=== PATIENT | female | born 1990 | race Caucasian/White ===

== ENCOUNTER 2016-04-14 17:17 | Emergency (ER) | payer OTHER ==
[2016-04-14 18:01] VITALS: BP 178/108; PULSE 18; RESP 20; TEMP 99.3
[2016-04-14] MEDS ORDERED: ONDANSETRON ODT 4 MG TAB PO STA (18:03)
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
== END 2016-04-14 20:09 | disposition left against medical advice (07) ==
LOC: EC 17:17
DX: R10.9 Unspecified abdominal pain (principal); Z79.899 Other long term (current) drug therapy; Z88.5 Allergy status to narcotic agent; Z88.2 Allergy status to sulfonamides; Z88.8 Allergy status to other drugs, medicaments and biological substances; Z91.040 Latex allergy status
CPT/HCPCS: 99283

== ENCOUNTER 2016-04-16 09:34 | Emergency (ER) | payer OTHER ==
[2016-04-16] MEDS ORDERED: SODIUM CHLORIDE 0.9% 1,000 ML IV STA (10:37)
[2016-04-16] MEDS ORDERED: HYDROmorphone 1 MG/ML 1 ML SYRINGE IVP STA (11:01)
[2016-04-16] MEDS ORDERED: ONDANSETRON 4 MG/2 ML VIAL IVP STA (11:01)
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
[2016-04-16 11:15] LABS: Appearance,Urine Cloudy (Clear); Bilirubin,Urine Negative (Negative); Glucose,Urine (UA) Negative (Negative); Ketones,Urine Trace (Negative); Leukocyte Esterase,Urine Large (Negative); Mucus,Urine Rare /hpf; Nitrite,Urine Negative (Negative); Particle Count 6386; Protein,Urine Trace (Negative); RBC,Urine 10 /hpf (0-5); Specific Gravity,Urine 1.016 (1.001-1.035); Squamous Epithelial Cell,Urine 10 /hpf (0-4); UA Billing (MACRO vs. MICRO) MICRO; Urobilinogen,Urine <2.0 mg/dL (<2.0); WBC,Urine 33 /hpf (0-5)
[2016-04-16 11:15] LABS: Basophils % (A) 1 %; CHCM 35.7; Eosinophils # (A) 0.1 k/uL (0-0.7); Eosinophils % (A) 3 %; HCT 40.4 % (34.0-46.0); HDW 2.94; Luc # (Auto) 0.16; Luc % (Auto) 3; Lymphocytes # (A) 2.4 k/uL (1.0-4.8); Lymphocytes % (A) 51 %; MCH 32.2 pg (25.0-35.0); MCHC 34.6 g/dL (31.0-37.0); Mean Platelet Volume 7.7; Monocytes # (A) 0.2 k/uL (0-1.0); Monocytes % (A) 5 %; Neutrophils # (A) 1.8 k/uL (1.3-7.7); Neutrophils % (A) 38 %; RBC 4.34 m/uL (3.80-5.40); RDW 13.2 % (11.5-15.5); WBC 4.7 k/uL (3.8-10.6); WBC (Perox) 4.89
[2016-04-16 11:24] LABS: ALT 43 U/L (9-52); AST 29 U/L (14-36); Alkaline Phosphatase 73 U/L (38-126); Amylase <30 U/L (30-110); Anion Gap 12 mmol/L; Blood Urea Nitrogen 9 mg/dL (7-17); Calcium 9.6 mg/dL (8.4-10.2); Carbon Dioxide 26 mmol/L (22-30); Chloride 105 mmol/L (98-107); Glucose 100 mg/dL (74-99); Non-African American GFR(MDRD) >60 (>60 ml/min/1.73 sqM); Sodium 143 mmol/L (137-145); Total Bilirubin 0.5 mg/dL (0.2-1.3); Total Protein 7.5 g/dL (6.3-8.2)
--- NOTE | 2016-04-16 12:00 | XR ---
EXAMINATION TYPE: XR KUB DATE OF EXAM: 04/16/2016 11:40 AM COMPARISON: NONE HISTORY: 25 year-old female right-sided abdominal pain and vomiting FINDINGS: Lung bases are clear. No evidence for free intraperitoneal air. No dilated small bowel or air-fluid levels. There is moderate stool in the right hemicolon. Ovoid density projecting over the right iliac bone probably represents a medication tablet to be yousuf elated clinically. No suspicious calcifications identified. Slight levoconvex curvature of the lumbar spine. IMPRESSION: 1. No evidence for free air or bowel obstruction. 2. Moderate stool in the right hemicolon. 3. Density probably representing a medication tablet projecting over the right iliac bone. Clinically correlate.
[2016-04-16 12:04] LABS: Manual Review Performed
[2016-04-16 12:08] LABS: RBC Morphology Normal
--- NOTE | 2016-04-16 12:12 | US ---
EXAMINATION TYPE: US abdomen limited DATE OF EXAM: 04/16/2016 11:53 AM COMPARISON: Ultrasound abdomen 13 September 2014 CLINICAL HISTO RY: RUQ pain, Vomiting. EXAM MEASUREMENTS: Liver Length: 13.4 cm Gallbladder Wall: 0.1 cm CBD: 0.4 cm Right Kidney: 10.9 x 5.2 x 4.5 cm RUQ ABDOMINAL ULTRASOUND ANATOMY: Pancreas: Not well seen because of overlying bowel gas Liver: difficult to evaluate due to large amounts of bowel gas. The liver shows an echogenic appeara nce and is poorly penetrated by the ultrasound beam, focal decreased echogenicity noted adjacent to t he gallbladder. Gallbladder: wnl Evidence for sonographic Velasquez's sign: yes CBD: wnl Right Kidney: wnl Ascites noted? No Impression: Positive sonographic Velasquez's sign. Probable fatty infiltration of the liver versus hepat ocellular disease, probable focal fatty sparing adjacent to the gallbladder. Limited exam.
[2016-04-16] MEDS ORDERED: RX INFO: IV CONTRAST WAS GIVEN 1 EACH MISC MISCELLANE PRN (12:16)
--- NOTE | 2016-04-16 13:08 | CT ---
EXAMINATION TYPE: CT abdomen pelvis w con DATE OF EXAM: 04/16/2016 12:55 PM COMPARISON: NONE HISTORY: 25-year-old female with RLQ pain TECHNIQUE: Contiguous axial scanning of the abdomen and pelvis following administration of 100 ml Omn ipaque 300 IV contrast. Delayed images through the kidneys and coronal/sagittal reconstructions perf ormed. CT DLP: 1973 mGycm Automated exposure control for dose reduction was used. FINDINGS: Heart is normal size without pericardial effusion. Lung bases clear without pleural effusion. There is a small hiatal hernia. Liver is mildly enlarged at 18.4 cm craniocaudal with diffuse low-attenuation. Some focal fatty spari ng is noted along the gallbladder fossa. No focal liver lesion otherwise seen. Gallbladder, adrenal glands, kidneys, spleen, pancreas within normal limits. No dilated small bowel, free fluid, or free air. No mesenteric or retroperitoneal lymphadenopathy. Normal appendix. Medication tablets within the cecum corresponding to the radiographic density. Addit ional medication tablet in the transverse colon and at the splenic flexure as well. A fourth medicati on tablet is seen in the mid small bowel. There is moderate stool burden without pericolonic inflammatory change. Bladder is partially distended. Uterus and both ovaries are visualized. Rectum appears normal. No abn ormal fluid collection in the pelvis or pelvic lymphadenopathy. Bones: No osseous destructive process. IMPRESSION: 1. HEPATOMEGALY AND HEPATIC STEATOSIS. CORRELATE WITH LFT's, LIPID PROFILE, AND PATIENT RISK FACTORS AND WHETHER THIS IS THE CAUSE OF THE PATIENT'S PAIN. 2. MODERATE STOOL BURDEN. NORMAL APPENDIX AND GALLBLADDER. 3. THERE ARE FOUR NONDISSOLVED MEDICATION TABLETS THROUGHOUT THE GI TRACT, 3 WITHIN THE COLON. 4. SMALL HIATAL HERNIA.
[2016-04-16 13:35] VITALS: BP 105/56; PULSE 83; RESP 18; TEMP 99.1
== END 2016-04-16 13:40 | disposition home or self-care (01) ==
LOC: EC 09:34
DX: K59.00 Constipation, unspecified (principal); K76.0 Fatty (change of) liver, not elsewhere classified; R11.2 Nausea with vomiting, unspecified; F32.9 Major depressive disorder, single episode, unspecified; F41.9 Anxiety disorder, unspecified; Z79.899 Other long term (current) drug therapy; Z91.040 Latex allergy status; Z88.2 Allergy status to sulfonamides; Z88.5 Allergy status to narcotic agent; Z88.8 Allergy status to other drugs, medicaments and biological substances
CPT/HCPCS: 99284; 96374; 96375; 96361; 36415; 80053; 82150; 83690; 85025; 81001; 81025; 87086; 74000; 76705; 74177; J2405; J1170; Q9967

== ENCOUNTER 2016-05-09 | Emergency (ER) | payer OTHER ==
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
== END 2016-05-09 09:06 | disposition home or self-care (01) ==
CPT/HCPCS: 99282

== ENCOUNTER → 2016-05-29 | Outpatient (CLI) | payer OTHER ==
--- NOTE | 2016-05-29 09:42 | NM ---
EXAMINATION TYPE: NM hepatobiliary w EF DATE OF EXAM: 05/29/2016 9:36 AM COMPARISON: CT 04/16/2016 HISTORY: Right upper quadrant pain TECHNIQUE: After the intravenous administration of 4.9 mCi Tc 99m Mebrofenin hepatobiliary scintigrap hy is performed. Immediate images post injection. FINDINGS: There is satisfactory initial accumulation of tracer by the liver. The gallbladder is visualized wit hin 10 minutes. The small bowel activity is noted within 60 minutes. At one hour 8 ounces of oral e nsure plus is given to mimic CCK and gallbladder ejection fraction is calculated at 71 %, in the norm al range. Therefore there is no scintigraphic evidence of cystic or common bile duct obstruction to suggest acute cholecystitis or gallbladder dyskinesia. IMPRESSION: 1. No abnormality identified
== END | disposition home or self-care (01) ==
LOC: RADNMMAIN 07:09
PROVIDERS: ATTEND Internal Medicine Gastroenterology
DX: R10.11 Right upper quadrant pain (principal)
CPT/HCPCS: 78226; A9537

== ENCOUNTER 2016-07-29 15:22 | Emergency (ER) | payer OTHER ==
[2016-07-29 16:12] VITALS: RESP 18
[2016-07-29] MEDS ORDERED: SODIUM CHLORIDE 0.9% 1,000 ML IV ONE (16:25)
[2016-07-29] MEDS ORDERED: ACETAMINOPHEN IV (For NPO) 1,000 MG in EMPTY BAG 1 BAG IVPB STA (16:26)
[2016-07-29] MEDS ORDERED: DIAZEPAM 5 MG/ML 2 ML SYRINGE IVP STA (16:26)
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
[2016-07-29] MEDS ORDERED: diphenhydrAMINE 50 MG/ML 1 ML VIAL IVP STA (18:18)
[2016-07-29 19:49] VITALS: BP 146/87; PULSE 86; TEMP 98.8
== END 2016-07-29 19:49 | disposition home or self-care (01) ==
LOC: EC 15:22
DX: R51 Headache (principal); F41.9 Anxiety disorder, unspecified; E66.9 Obesity, unspecified; J45.909 Unspecified asthma, uncomplicated; F32.9 Major depressive disorder, single episode, unspecified; F43.10 Post-traumatic stress disorder, unspecified; Z79.891 Long term (current) use of opiate analgesic; Z79.899 Other long term (current) drug therapy; Z88.6 Allergy status to analgesic agent; Z88.0 Allergy status to penicillin; Z88.2 Allergy status to sulfonamides; Z88.8 Allergy status to other drugs, medicaments and biological substances; Z91.040 Latex allergy status; Z91.030 Bee allergy status; Z88.5 Allergy status to narcotic agent; Z91.09 Other allergy status, other than to drugs and biological substances
CPT/HCPCS: 93005; 99283; 96374; 96375 ×2; 96361; J1200; J3360; J0131

== ENCOUNTER → 2016-08-28 | Outpatient (CLI) | payer OTHER ==
--- NOTE | 2016-08-28 12:09 | XR ---
EXAMINATION TYPE: XR skull complete DATE OF EXAM: 08/28/2016 11:52 AM COMPARISON: NONE HISTORY: Headache TECHNIQUE: 2 views of the skull are obtained FINDINGS: Osseous structures are intact. No evidence of displaced calvarial fracture. No osseous lesi on. IMPRESSION: 1. No definite acute abnormality. If symptoms persist recommend head CT with bone windows.
== END ==
LOC: RADXRMAIN 11:36
PROVIDERS: ATTEND Nurse Practitioner Women's Health
DX: S09.90XA Unspecified injury of head, initial encounter (principal)
CPT/HCPCS: 70260

== ENCOUNTER 2017-04-22 15:18 | Emergency (ER) | payer OTHER ==
[2017-04-22] MEDS ORDERED: diphenhydrAMINE 50 MG/ML 1 ML VIAL IVP STA (17:46)
[2017-04-22] MEDS ORDERED: METOCLOPRAMIDE 5 MG/ML 2 ML VIAL IVP STA (17:46)
[2017-04-22] MEDS ORDERED: SODIUM CHLORIDE 0.9% 1,000 ML IV STA (17:46)
--- NOTE | 2017-04-22 17:51 | ED ---
General Adult HPI - General Chief complaint: Headache Stated complaint: headache/nose bleed Time Seen by Provider: 04/22/17 17:38 Source: patient, RN notes reviewed Mode of arrival: ambulatory Limitations: no limitations - History of Present Illness Initial comments: Patient 26-year-old female who presents emergency room today with a chief complaint of a headache that started yesterday when she woke up. Patient describes a "pounding" type headache throughout her head. She currently rates an 8/10. States nothing seems to make it better or worse. She states different than migraines that she's had in the past. She also admits that she had an episode of epistaxis of the left nostril yesterday the last for approximately 15 minutes. She states she was able control bleeding is not had any rebleeding. Patient also admits to feeling somewhat dizzy at times. States appetites been down due to the headache. Denies any complaints symptoms currently. Patient denies any recent fever, chills, shortness of breath, chest pain, back pain, abdominal pain, nausea or vomiting, numbness or tingling, dysuria or hematuria, constipation or diarrhea, visual changes, or any other complaints. - Related Data Home Medications Medication Instructions Recorded Confirmed tiZANidine HCL [Zanaflex] 4 mg PO BID PRN 04/16/16 04/22/17 QUEtiapine FUMARATE [SEROquel] 300 mg PO HS 07/15/16 04/22/17 Albuterol Inhaler [Ventolin Hfa 1 - 2 puff INHALATION RT-Q6H PRN 07/29/16 Inhaler] Omeprazole [PriLOSEC] 40 mg PO HS 07/29/16 04/22/17 Ibuprofen [Motrin] 600 mg PO Q8HR PRN 04/22/17 04/22/17 Topiramate [Topamax] 50 mg PO HS 04/22/17 04/22/17 Previous Rx's Medication Instructions Recorded Naproxen [Naprosyn] 500 mg PO BID #20 tablet 04/22/17 Allergies Allergy/AdvReac Type Severity Reaction Status Date / Time haloperidol [From Haldol] Allergy Severe QUIT Verified 04/22/17 17:20 BREATHING haloperidol lactate Allergy Severe QUIT Verified 04/22/17 17:20 [From Haldol] BREATHING latex Allergy Severe RASH-THROAT Verified 04/22/17 17:20 CLOSES promethazine HCl Allergy Severe Nausea & Verified 04/22/17 17:20 [From Phenergan] Vomiting amoxicillin Allergy Nausea & Verified 04/22/17 17:20 Vomiting bee pollen Allergy Unknown Verified 04/22/17 17:20 ketorolac tromethamine Allergy Nausea & Verified 04/22/17 17:20 [From Toradol] Vomiting prednisone Allergy THROAT Verified 04/22/17 17:20 SWELLS spider venom Allergy Swelling Verified 04/22/17 17:20 Sulfa (Sulfonamide Allergy THROAT Verified 04/22/17 17:20 Antibiotics) SWELLS codeine phosphate AdvReac Nausea & Verified 04/22/17 17:20 [From Tylenol-Codeine #3] Vomiting ANTS Allergy Unknown Uncoded 07/29/16 16:42 WASP Allergy Unknown Uncoded 07/29/16 16:42 Review of Systems ROS Statement: Those systems with pertinent positive or pertinent negative responses have been documented in the HPI. ROS Other: All systems not noted in ROS Statement are negative. Past Medical History Past Medical History: Asthma Additional Past Medical History / Comment(s): states heart races all the time ( 90-140) hx migraines, ddd- lower back is the worst, vertigo, endometriosis History of Any Multi-Drug Resistant Organisms: None Reported Past Surgical History: Orthopedic Surgery Additional Past Surgical History / Comment(s): laparoscopc for endometriosis, left foot surg Past Anesthesia/Blood Transfusion Reactions: Previous Problems w/ Anesthesia Additional Past Anesthesia/Blood Transfusion Reaction / Comment(s): hard to wake up 48-72 hours after laparoscopic-was in hosp. for 3 days Past Psychological History: Anxiety, Depression, PTSD Smoking Status: Never smoker Past Alcohol Use History: None Reported Past Drug Use History: None Reported - Past Family History Mother Family Medical History: Hypertension Additional Family Medical History / Comment(s): hx migraines Father Family Medical History: Coronary Artery Disease (CAD), Hypertension Additional Family Medical History / Comment(s): ddd, alcoholism & drug use General Exam - General Exam Comments Initial Comments: General: The patient is awake and alert, in no distress, and does not appear acutely ill. Eye: Pupils are equal, round and reactive to light, extra-ocular movements are intact. No nystagmus. There is normal conjunctiva bilaterally. No signs of icterus. Ears, nose, mouth and throat: There are moist mucous membranes and no oral lesions. Neck: The neck is supple, there is no tenderness or JVD. Cardiovascular: There is a regular rate and rhythm. No murmur, rub or gallop is appreciated. Respiratory: Lungs are clear to auscultation, respirations are non-labored, breath sounds are equal. No wheezes, stridor, rales, or rhonchi. Musculoskeletal: Normal ROM, no tenderness. Strength 5/5. Sensation intact. Pulses equal bilaterally 2+. Neurological: A&O x 3. CN II-XII intact, There are no obvious motor or sensory deficits. Coordination appears grossly intact. Speech is normal. Skin: Skin is warm and dry and no rashes or lesions are noted. Psychiatric: Cooperative, appropriate mood & affect, normal judgment. Limitations: no limitations Course Vital Signs 04/22/17 04/22/17 15:21 19:00 Temperature 97.8 F Pulse Rate 82 99 Respiratory 18 18 Rate Blood Pressure 111/75 128/62 O2 Sat by Pulse 99 98 Oximetry Medical Decision Making - Medical Decision Making Patient reexamined at this time shows no signs of distress. Patient says she's feeling much better after medications. She was given Reglan and Benadryl here in emergency room. Patient's CT is unremarkable. No acute abnormality. Patient's labs reviewed and are negative. Culture added to the urine at this time as patient is symptomatic will be discharged home advised follow-up the family doctor return to emergency room if symptoms increase or worsen. Patient has taken naproxen as prescription for any headaches. Advised return for any other concerns. - Lab Data Result diagrams: 04/22/17 18:00 04/22/17 18:00 Lab Results 04/22/17 04/22/17 04/22/17 Range/Units 18:00 18:00 18:00 WBC 6.4 (3.8-10.6) k/uL RBC 4.47 (3.80-5.40) m/uL Hgb 13.8 (11.4-16.0) gm/dL Hct 40.8 (34.0-46.0) % MCV 91.3 (80.0-100.0) fL MCH 31.0 (25.0-35.0) pg MCHC 33.9 (31.0-37.0) g/dL RDW 13.9 (11.5-15.5) % Plt Count 197 (150-450) k/uL Neutrophils % 44 % Lymphocytes % 48 % Monocytes % 4 % Eosinophils % 2 % Basophils % 1 % Neutrophils # 2.8 (1.3-7.7) k/uL Lymphocytes # 3.1 (1.0-4.8) k/uL Monocytes # 0.3 (0-1.0) k/uL Eosinophils # 0.1 (0-0.7) k/uL Basophils # 0.0 (0-0.2) k/uL PT (9.0-12.0) sec INR (<1.2) APTT (22.0-30.0) sec Sodium (137-145) mmol/L Potassium (3.5-5.1) mmol/L Chloride (98-107) mmol/L Carbon Dioxide (22-30) mmol/L Anion Gap mmol/L BUN (7-17) mg/dL Creatinine (0.52-1.04) mg/dL Est GFR (MDRD) Af Amer (>60 ml/min/1.73 sqM) Est GFR (MDRD) Non-Af (>60 ml/min/1.73 sqM) Glucose (74-99) mg/dL Calcium (8.4-10.2) mg/dL Total Bilirubin (0.2-1.3) mg/dL AST (14-36) U/L ALT (9-52) U/L Alkaline Phosphatase (38-126) U/L Total Protein (6.3-8.2) g/dL Albumin (3.5-5.0) g/dL Urine Color Light Yellow Urine Appearance Cloudy H (Clear) Urine pH 5.5 (5.0-8.0) Ur Specific [employer] 1.012 (1.001-1.035) Urine Protein Negative (Negative) Urine Glucose (UA) Negative (Negative) Urine Ketones Negative (Negative) Urine Blood Trace H (Negative) Urine Nitrite Negative (Negative) Urine Bilirubin Negative (Negative) Urine Urobilinogen <2.0 (<2.0) mg/dL Ur Leukocyte Esterase Large H (Negative) Urine RBC 6 H (0-5) /hpf Urine WBC 11 H (0-5) /hpf Ur Squamous Epith Cells 4 (0-4) /hpf Urine Bacteria Occasional H (None) /hpf Urine HCG, Qual Not Detected (Not Detectd) 04/22/17 04/22/17 Range/Units 18:00 18:00 WBC (3.8-10.6) k/uL RBC (3.80-5.40) m/uL Hgb (11.4-16.0) gm/dL Hct (34.0-46.0) % MCV (80.0-100.0) fL MCH (25.0-35.0) pg MCHC (31.0-37.0) g/dL RDW (11.5-15.5) % Plt Count (150-450) k/uL Neutrophils % % Lymphocytes % % Monocytes % % Eosinophils % % Basophils % % Neutrophils # (1.3-7.7) k/uL Lymphocytes # (1.0-4.8) k/uL Monocytes # (0-1.0) k/uL Eosinophils # (0-0.7) k/uL Basophils # (0-0.2) k/uL PT 9.7 (9.0-12.0) sec INR 1.0 (<1.2) APTT 22.9 (22.0-30.0) sec Sodium 140 (137-145) mmol/L Potassium 4.0 (3.5-5.1) mmol/L Chloride 108 H (98-107) mmol/L Carbon Dioxide 19 L (22-30) mmol/L Anion Gap 13 mmol/L BUN 18 H (7-17) mg/dL Creatinine 0.81 (0.52-1.04) mg/dL Est GFR (MDRD) Af Amer >60 (>60 ml/min/1.73 sqM) Est GFR (MDRD) Non-Af >60 (>60 ml/min/1.73 sqM) Glucose 90 (74-99) mg/dL Calcium 9.9 (8.4-10.2) mg/dL Total Bilirubin 0.4 (0.2-1.3) mg/dL AST 39 H (14-36) U/L ALT 46 (9-52) U/L Alkaline Phosphatase 89 (38-126) U/L Total Protein 7.4 (6.3-8.2) g/dL Albumin 4.0 (3.5-5.0) g/dL Urine Color Urine Appearance (Clear) Urine pH (5.0-8.0) Ur Specific [employer] (1.001-1.035) Urine Protein (Negative) Urine Glucose (UA) (Negative) Urine Ketones (Negative) Urine Blood (Negative) Urine Nitrite (Negative) Urine Bilirubin (Negative) Urine Urobilinogen (<2.0) mg/dL Ur Leukocyte Esterase (Negative) Urine RBC (0-5) /hpf Urine WBC (0-5) /hpf Ur Squamous Epith Cells (0-4) /hpf Urine Bacteria (None) /hpf Urine HCG, Qual (Not Detectd) Disposition Clinical Impression: Acute headache Disposition: HOME SELF-CARE Condition: Good Instructions: Acute Headache (ED) Additional Instructions: Please use medication as discussed. Please follow-up with family doctor in the next 2 days of symptoms have not improved. Please return to emergency room if the symptoms increase or worsen or for any other concerns. Prescriptions: Naproxen [Naprosyn] 500 mg PO BID #20 tablet Referrals: Jaime Stanford Jr, DO [Primary Care Provider] - 1-2 days Time of Disposition: 19:20
[2017-04-22 18:18] LABS: Appearance,Urine Cloudy (Clear); Bacteria,Urine Occasional /hpf; Bilirubin,Urine Negative (Negative); Blood,Urine Trace (Negative); Color,Urine Light Yellow; Glucose,Urine (UA) Negative (Negative); Ketones,Urine Negative (Negative); Leukocyte Esterase,Urine Large (Negative); Nitrite,Urine Negative (Negative); PH, Urine 5.5 (5.0-8.0); Protein,Urine Negative (Negative); RBC,Urine 6 /hpf (0-5); Specific Gravity,Urine 1.012 (1.001-1.035); Squamous Epithelial Cell,Urine 4 /hpf (0-4); Urobilinogen,Urine <2.0 mg/dL (<2.0); WBC,Urine 11 /hpf (0-5)
[2017-04-22 18:24] LABS: Basophils % (A) 1 %; Eosinophils # (A) 0.1 k/uL (0-0.7); Eosinophils % (A) 2 %; HCT 40.8 % (34.0-46.0); HGB 13.8 gm/dL (11.4-16.0); Lymphocytes # (A) 3.1 k/uL (1.0-4.8); Lymphocytes % (A) 48 %; MCHC 33.9 g/dL (31.0-37.0); MCV 91.3 fL (80.0-100.0); Mean Platelet Volume 7.8; Monocytes # (A) 0.3 k/uL (0-1.0); Monocytes % (A) 4 %; Neutrophils # (A) 2.8 k/uL (1.3-7.7); Neutrophils % (A) 44 %; Platelet Count 197 k/uL (150-450); RBC 4.47 m/uL (3.80-5.40); RDW 13.9 % (11.5-15.5); WBC 6.4 k/uL (3.8-10.6)
[2017-04-22 18:28] LABS: Partial Thromboplastin Time 22.9 sec (22.0-30.0); Prothrombin Time 9.7 sec (9.0-12.0)
[2017-04-22 18:34] LABS: ALT 46 U/L (9-52); AST 39 U/L (14-36); Alkaline Phosphatase 89 U/L (38-126); Anion Gap 13 mmol/L; Blood Urea Nitrogen 18 mg/dL (7-17); Calcium 9.9 mg/dL (8.4-10.2); Carbon Dioxide 19 mmol/L (22-30); Chloride 108 mmol/L (98-107); Glucose 90 mg/dL (74-99); Sodium 140 mmol/L (137-145); Total Bilirubin 0.4 mg/dL (0.2-1.3); Total Protein 7.4 g/dL (6.3-8.2)
--- NOTE | 2017-04-22 18:48 | CT ---
EXAMINATION TYPE: CT brain wo con DATE OF EXAM: 04/22/2017 COMPARISON: NONE HISTORY: FABIAN and nose bleed x2 days. CT DLP: 1085 mGycm Automated exposure control for dose reduction was used. FINDINGS: Central structures are midline. There is no evidence of hydrocephalus. No acute focal lesion, mass ef fect or midline shift is seen. I do not see evidence of intracranial blood. The orbits appear normal. Visualized portions of the paranasal sinuses and mastoids are clear. IMPRESSION: NORMAL CT SCAN OF THE BRAIN.
[2017-04-22 19:04] VITALS: BP 128/62
[2017-04-22 19:28] VITALS: PULSE 100; RESP 16; TEMP 97.4
== END 2017-04-22 19:33 | disposition home or self-care (01) ==
LOC: EC 15:18
DX: R51 Headache (principal); R63.8 Other symptoms and signs concerning food and fluid intake; F32.9 Major depressive disorder, single episode, unspecified; Z79.899 Other long term (current) drug therapy; Z88.0 Allergy status to penicillin; Z88.2 Allergy status to sulfonamides; Z88.5 Allergy status to narcotic agent; Z88.6 Allergy status to analgesic agent; Z88.8 Allergy status to other drugs, medicaments and biological substances; Z91.030 Bee allergy status; Z91.038 Other insect allergy status; Z91.040 Latex allergy status; Z86.69 Personal history of other diseases of the nervous system and sense organs; Z82.0 Family history of epilepsy and other diseases of the nervous system
CPT/HCPCS: 36415; 80053; 85025; 85610; 85730; 81001; 81025; 70450; 99284; 96374; 96375; 96361 ×2; J1200; J2765

== ENCOUNTER 2017-05-18 15:19 | Emergency (ER) | payer OTHER ==
--- NOTE | 2017-05-18 16:28 | ED ---
General Adult HPI - General Chief complaint: Abdominal Pain Stated complaint: abdominal pain/rectal bleeding Time Seen by Provider: 05/18/17 16:10 Source: patient, RN notes reviewed Mode of arrival: ambulatory Limitations: no limitations - History of Present Illness Initial comments: 26-year-old female presents for evaluation of left-sided abdominal pain and rectal bleeding. Patient has had some complaints of constipation and hard stool , last bowel movement was 2 days ago. There was bright red blood associated with this. Patient states that she is also had some blood in between bowel movements. This was bright red as well. Denies any vaginal bleeding or hematuria. Patient has past medical history of asthma and migraine. She is not taking any blood thinners. No known family history as patient is adopted. - Related Data Home Medications Medication Instructions Recorded Confirmed tiZANidine HCL [Zanaflex] 4 mg PO BID PRN 04/16/16 05/18/17 QUEtiapine FUMARATE [SEROquel] 300 mg PO HS 07/15/16 05/18/17 Albuterol Inhaler [Ventolin Hfa 1 - 2 puff INHALATION RT-Q6H PRN 07/29/16 Inhaler] Omeprazole [PriLOSEC] 40 mg PO HS 07/29/16 05/18/17 Topiramate [Topamax] 50 mg PO HS 04/22/17 05/18/17 Aspirin [Adult Low Dose Aspirin EC] 81 mg PO HS PRN 05/18/17 05/18/17 Previous Rx's Medication Instructions Recorded Polyethylene Glycol 3350 [Miralax] 17 gm PO DAILY #527 gm 05/18/17 Allergies Allergy/AdvReac Type Severity Reaction Status Date / Time haloperidol [From Haldol] Allergy Severe QUIT Verified 05/18/17 16:13 BREATHING haloperidol lactate Allergy Severe QUIT Verified 05/18/17 16:13 [From Haldol] BREATHING latex Allergy Severe RASH-THROAT Verified 05/18/17 16:13 CLOSES promethazine HCl Allergy Severe Nausea & Verified 05/18/17 16:13 [From Phenergan] Vomiting amoxicillin Allergy Nausea & Verified 05/18/17 16:13 Vomiting bee pollen Allergy Unknown Verified 05/18/17 16:13 ketorolac tromethamine Allergy Nausea & Verified 05/18/17 16:13 [From Toradol] Vomiting prednisone Allergy THROAT Verified 05/18/17 16:13 SWELLS spider venom Allergy Swelling Verified 05/18/17 16:13 Sulfa (Sulfonamide Allergy THROAT Verified 05/18/17 16:13 Antibiotics) SWELLS codeine phosphate AdvReac Nausea & Verified 05/18/17 16:13 [From Tylenol-Codeine #3] Vomiting ANTS Allergy Unknown Uncoded 05/18/17 15:30 WASP Allergy Unknown Uncoded 05/18/17 15:30 Review of Systems ROS Statement: Those systems with pertinent positive or pertinent negative responses have been documented in the HPI. ROS Other: All systems not noted in ROS Statement are negative. Past Medical History Past Medical History: Asthma Additional Past Medical History / Comment(s): states heart races all the time ( 90-140) hx migraines, ddd- lower back is the worst, vertigo, endometriosis History of Any Multi-Drug Resistant Organisms: None Reported Past Surgical History: Orthopedic Surgery Additional Past Surgical History / Comment(s): laparoscopc for endometriosis, left foot surg Past Anesthesia/Blood Transfusion Reactions: Previous Problems w/ Anesthesia Additional Past Anesthesia/Blood Transfusion Reaction / Comment(s): hard to wake up 48-72 hours after laparoscopic-was in hosp. for 3 days Past Psychological History: Anxiety, Depression, PTSD Smoking Status: Never smoker Past Alcohol Use History: None Reported Past Drug Use History: None Reported - Past Family History Mother Family Medical History: Hypertension Additional Family Medical History / Comment(s): hx migraines Father Family Medical History: Coronary Artery Disease (CAD), Hypertension Additional Family Medical History / Comment(s): ddd, alcoholism & drug use General Exam Limitations: no limitations General appearance: alert, in no apparent distress Head exam: Present: atraumatic, normocephalic Eye exam: Present: normal appearance, PERRL ENT exam: Present: normal exam Neck exam: Present: normal inspection. Absent: tenderness, meningismus Respiratory exam: Present: normal lung sounds bilaterally. Absent: respiratory distress Cardiovascular Exam: Present: regular rate, normal rhythm GI/Abdominal exam: Present: soft, tenderness (left upper quadrant tenderness). Absent: distended, guarding, rebound Rectal exam: Present: normal inspection, normal rectal tone. Absent: black stool, bloody stool, fecal impaction, hemorrhoids Extremities exam: Present: normal inspection, full ROM. Absent: tenderness Neurological exam: Present: alert, oriented X3, CN II-XII intact. Absent: motor sensory deficit Psychiatric exam: Present: normal affect, normal mood Skin exam: Present: warm, dry, intact. Absent: cyanosis, diaphoretic Course Vital Signs 05/18/17 15:27 Temperature 97.0 F L Pulse Rate 110 H Respiratory 18 Rate Blood Pressure 143/88 O2 Sat by Pulse 98 Oximetry Medical Decision Making - Medical Decision Making 26-year-old female presenting with several episodes of bright red rectal bleeding. No known history of ulcerative colitis or Crohn's disease. Patient does report some symptoms consistent with constipation. She has minimal abdominal pain in the left upper quadrant, no rebound or guarding. Urinalysis shows 3 RBCs and 3 WBCs. Urine test is negative. Patient has no dysuria. Rectal examination is negative for hemorrhages, there is no blood present on examination. No stool in the rectal vault. patient will monitor rectal bleeding. She will watch for diarrhea and mucus. Return for worsening pain. She is informed this is likely due to constipation and internal hemorrhoid although the possibility of other causes of rectal bleeding or possible. She will return with worsening or changing symptoms and follow-up with her primary care physician. X-rayNegative for acute findings. No obstruction or free air. - Lab Data Lab Results 05/18/17 05/18/17 Range/Units 16:27 16:27 Urine Color Light Yellow Urine Appearance Clear (Clear) Urine pH 5.0 (5.0-8.0) Ur Specific [place] 1.004 (1.001-1.035) Urine Protein Negative (Negative) Urine Glucose (UA) Negative (Negative) Urine Ketones Negative (Negative) Urine Blood Negative (Negative) Urine Nitrite Negative (Negative) Urine Bilirubin Negative (Negative) Urine Urobilinogen <2.0 (<2.0) mg/dL Ur Leukocyte Esterase Moderate H (Negative) Urine RBC 3 (0-5) /hpf Urine WBC 3 (0-5) /hpf Ur Squamous Epith Cells 2 (0-4) /hpf Urine Bacteria Occasional H (None) /hpf Urine Mucus Rare H (None) /hpf Urine HCG, Qual Not Detected (Not Detectd) Disposition Clinical Impression: Constipation, Rectal bleeding Disposition: HOME SELF-CARE Condition: Good Instructions: Rectal Bleeding (ED) Prescriptions: Polyethylene Glycol 3350 [Miralax] 17 gm PO DAILY #527 gm Referrals: Jaime tSanford Jr, DO [Primary Care Provider] - 1-2 days Greta Kan PAC [REFERRING] - 1-2 days Time of Disposition: 16:52
[2017-05-18 16:36] LABS: Appearance,Urine Clear (Clear); Bacteria,Urine Occasional /hpf; Bilirubin,Urine Negative (Negative); Blood,Urine Negative (Negative); Color,Urine Light Yellow; Glucose,Urine (UA) Negative (Negative); Ketones,Urine Negative (Negative); Leukocyte Esterase,Urine Moderate (Negative); Mucus,Urine Rare /hpf; Nitrite,Urine Negative (Negative); Protein,Urine Negative (Negative); RBC,Urine 3 /hpf (0-5); Specific Gravity,Urine 1.004 (1.001-1.035); Squamous Epithelial Cell,Urine 2 /hpf (0-4); Urobilinogen,Urine <2.0 mg/dL (<2.0); WBC,Urine 3 /hpf (0-5)
--- NOTE | 2017-05-18 16:54 | XR ---
EXAMINATION TYPE: XR KUB DATE OF EXAM: 05/18/2017 4:44 PM CLINICAL HISTORY: Abdominal pain with rectal bleeding. TECHNIQUE: Single supine KUB image of the abdomen is obtained. COMPARISON: None. FINDINGS: Scattered gas is seen in non-distended small bowel loops. Gas and fecal material is seen in non-distended colon. There is no visceromegaly, pneumoperitoneum, or abnormal calcification apprecia dawood. The lung bases are clear and the osseous structures are intact. The previously seen well-circums cribed ovoid density over the right iliac bone is no longer present and was presumably located within bowel and has passed. IMPRESSION: Nonobstructive bowel gas pattern.
[2017-05-18 17:07] VITALS: BP 134/63; PULSE 89; RESP 16; TEMP 97.8
== END 2017-05-18 17:11 | disposition home or self-care (01) ==
LOC: EC 15:19
DX: K59.00 Constipation, unspecified (principal); K62.5 Hemorrhage of anus and rectum; F32.9 Major depressive disorder, single episode, unspecified; Z86.69 Personal history of other diseases of the nervous system and sense organs; Z79.899 Other long term (current) drug therapy; Z88.8 Allergy status to other drugs, medicaments and biological substances; Z91.040 Latex allergy status; Z88.0 Allergy status to penicillin; Z88.6 Allergy status to analgesic agent; Z88.2 Allergy status to sulfonamides; Z88.5 Allergy status to narcotic agent; Z91.038 Other insect allergy status; Z91.030 Bee allergy status
CPT/HCPCS: 74018; 81001; 81025; 99284

== ENCOUNTER 2017-05-30 14:41 | Emergency (ER) | payer OTHER ==
[2017-05-30] MEDS ORDERED: IBUPROFEN 600 MG TAB PO STA (14:53)
--- NOTE | 2017-05-30 14:56 | ED ---
Neck Injury/Pain HPI - General Chief Complaint: Neck Pain/Injury Stated Complaint: Fall/Back Pain Time Seen by Provider: 05/30/17 14:46 Source: patient, RN notes reviewed Mode of arrival: ambulatory Limitations: no limitations - History of Present Illness Initial Comments: This is a 26 year old female who presents with a chief complaint of back pain after falling down 7 stairs 30 minutes ago. She states she slipped and fell on a patch of ice and landed on her back. She reports the pain is mostly thoracic to the lumbar region. There is no radiating pain. She denies head injury or loss of consciousness. - Related Data Home Medications Medication Instructions Recorded Confirmed tiZANidine HCL [Zanaflex] 4 mg PO BID PRN 04/16/16 05/30/17 QUEtiapine FUMARATE [SEROquel] 300 mg PO HS 07/15/16 05/30/17 Albuterol Inhaler [Ventolin Hfa 1 - 2 puff INHALATION RT-Q6H PRN 07/29/16 Inhaler] Omeprazole [PriLOSEC] 40 mg PO HS 07/29/16 05/30/17 Topiramate [Topamax] 50 mg PO HS 04/22/17 05/30/17 Aspirin [Adult Low Dose Aspirin EC] 81 mg PO HS PRN 05/18/17 05/30/17 Previous Rx's Medication Instructions Recorded Polyethylene Glycol 3350 [Miralax] 17 gm PO DAILY #527 gm 05/18/17 Ibuprofen [Motrin] 600 mg PO Q8HR PRN #30 tab 05/30/17 traMADol HCl [Ultram] 50 mg PO Q6H PRN #20 tab 05/30/17 Allergies Allergy/AdvReac Type Severity Reaction Status Date / Time haloperidol [From Haldol] Allergy Severe QUIT Verified 05/30/17 14:45 BREATHING haloperidol lactate Allergy Severe QUIT Verified 05/30/17 14:45 [From Haldol] BREATHING latex Allergy Severe RASH-THROAT Verified 05/30/17 14:45 CLOSES promethazine HCl Allergy Severe Nausea & Verified 05/30/17 14:45 [From Phenergan] Vomiting amoxicillin Allergy Nausea & Verified 05/30/17 14:45 Vomiting bee pollen Allergy Unknown Verified 05/30/17 14:45 ketorolac tromethamine Allergy Nausea & Verified 05/30/17 14:45 [From Toradol] Vomiting prednisone Allergy THROAT Verified 05/30/17 14:45 SWELLS spider venom Allergy Swelling Verified 05/30/17 14:45 Sulfa (Sulfonamide Allergy THROAT Verified 05/30/17 14:45 Antibiotics) SWELLS codeine phosphate AdvReac Nausea & Verified 05/30/17 14:45 [From Tylenol-Codeine #3] Vomiting ANTS Allergy Unknown Uncoded 05/30/17 14:45 WASP Allergy Unknown Uncoded 05/30/17 14:45 Review of Systems ROS Statement: Those systems with pertinent positive or pertinent negative responses have been documented in the HPI. ROS Other: All systems not noted in ROS Statement are negative. Past Medical History Past Medical History: Asthma Additional Past Medical History / Comment(s): states heart races all the time ( 90-140) hx migraines, ddd- lower back is the worst, vertigo, endometriosis History of Any Multi-Drug Resistant Organisms: None Reported Past Surgical History: Orthopedic Surgery Additional Past Surgical History / Comment(s): laparoscopc for endometriosis, left foot surg Past Anesthesia/Blood Transfusion Reactions: Previous Problems w/ Anesthesia Additional Past Anesthesia/Blood Transfusion Reaction / Comment(s): hard to wake up 48-72 hours after laparoscopic-was in hosp. for 3 days Past Psychological History: Anxiety, Depression, PTSD Smoking Status: Never smoker Past Alcohol Use History: None Reported Past Drug Use History: None Reported - Past Family History Mother Family Medical History: Hypertension Additional Family Medical History / Comment(s): hx migraines Father Family Medical History: Coronary Artery Disease (CAD), Hypertension Additional Family Medical History / Comment(s): ddd, alcoholism & drug use General Exam Limitations: no limitations General appearance: alert, in no apparent distress Head exam: Present: atraumatic Eye exam: Present: normal appearance, PERRL, EOMI. Absent: scleral icterus, conjunctival injection, periorbital swelling ENT exam: Present: normal oropharynx Neck exam: Present: normal inspection, full ROM. Absent: tenderness, meningismus, lymphadenopathy Respiratory exam: Present: normal lung sounds bilaterally. Absent: respiratory distress, wheezes, rales, rhonchi, stridor, chest wall tenderness Cardiovascular Exam: Present: regular rate, normal rhythm, normal heart sounds. Absent: systolic murmur, diastolic murmur, rubs, gallop, clicks GI/Abdominal exam: Present: soft, normal bowel sounds. Absent: distended, tenderness, guarding, rebound, rigid Extremities exam: Present: normal inspection, full ROM, normal capillary refill. Absent: tenderness, pedal edema, joint swelling, calf tenderness Back exam: Present: normal inspection, full ROM, vertebral tenderness, other ( Mild tenderness with palpation between the thoracic and lumbar region. No evidence of abrasions or ecchymoses. Neurovascular remains intact.) Neurological exam: Present: alert, oriented X3, CN II-XII intact, reflexes normal. Absent: motor sensory deficit Psychiatric exam: Present: normal affect, normal mood Skin exam: Present: warm, dry, intact, normal color. Absent: rash Course Vital Signs 05/30/17 14:42 Temperature 98.1 F Pulse Rate 120 H Respiratory 18 Rate Blood Pressure 134/84 O2 Sat by Pulse 99 Oximetry Medical Decision Making - Medical Decision Making This 26 year old female came into the ED with a chief complaint of back pain after falling down the stairs and landing on her back. She was given Motrin 600mg for pain. Radiographs were taken. X-rays reviewed no acute abnormality. Patient be discharged at this time with close follow-up advised place heat and ice and to her back. Disposition Clinical Impression: Fall, Back pain, Back contusion Disposition: HOME SELF-CARE Condition: Stable Instructions: Back Pain (ED) Additional Instructions: Please return to the Emergency Department if symptoms worsen or any other concerns. Prescriptions: Ibuprofen [Motrin] 600 mg PO Q8HR PRN #30 tab PRN Reason: Pain traMADol HCl [Ultram] 50 mg PO Q6H PRN #20 tab PRN Reason: Pain Referrals: Jaime Stanford Jr, DO [Primary Care Provider] - 1-2 days Time of Disposition: 15:56
--- NOTE | 2017-05-30 15:43 | XR ---
EXAMINATION TYPE: XR thoracic spine complete DATE OF EXAM: 05/30/2017 COMPARISON: NONE HISTORY: Back pain TECHNIQUE: 3 views FINDINGS: Thoracic vertebra have normal spacing and alignment. Posterior elements are intact. There i s no paraspinal mass. I see no compression fracture. IMPRESSION: Negative thoracic spine exam.
--- NOTE | 2017-05-30 15:56 | XR ---
EXAMINATION TYPE: XR lumbosacral spine min 4V DATE OF EXAM: 05/30/2017 COMPARISON: NONE HISTORY: Back pain TECHNIQUE: 5 views FINDINGS: The lumbar vertebra have normal spacing and alignment. Posterior elements are intact. Sacro iliac joints appear normal. IMPRESSION: Normal lumbar spine
[2017-05-30 16:06] VITALS: BP 140/78; PULSE 87; RESP 20; TEMP 98.7
== END 2017-05-30 16:05 | disposition home or self-care (01) ==
LOC: EC 14:41
DX: S20.229A Contusion of unspecified back wall of thorax, initial encounter (principal); S30.0XXA Contusion of lower back and pelvis, initial encounter; F41.9 Anxiety disorder, unspecified; F43.10 Post-traumatic stress disorder, unspecified; F32.9 Major depressive disorder, single episode, unspecified; Z79.899 Other long term (current) drug therapy; Z88.0 Allergy status to penicillin; Z88.2 Allergy status to sulfonamides; Z88.5 Allergy status to narcotic agent; Z88.6 Allergy status to analgesic agent; Z88.8 Allergy status to other drugs, medicaments and biological substances; Z91.030 Bee allergy status; Z91.038 Other insect allergy status; Z91.040 Latex allergy status; W00.1XXA Fall from stairs and steps due to ice and snow, initial encounter; Y92.009 Unspecified place in unspecified non-institutional (private) residence as the place of occurrence of the external cause
CPT/HCPCS: 72072; 72110; 99283

== ENCOUNTER 2017-06-09 10:24 | Day surgery (SDC) | payer OTHER ==
[2017-06-08 09:28] VITALS: BMI 38.9
[~2017-06-09 10:24] MED LIST: LACTATED RINGERS 1,000 ML IV SCH
[2017-06-09 11:21] VITALS: RESP 16; TEMP 97.8
[2017-06-09] MEDS ORDERED: LIDOCAINE 1% 20 ML VIAL (10MG/ML) FOR IV START INTRADERMA ONE (11:22)
[2017-06-09] MEDS ORDERED: PROPOFOL 10 MG/ML 20 ML VIAL IV ONE (11:31)
--- NOTE | 2017-06-09 11:49 | P.PCN ---
Date of Procedure: 06/09/17 Procedure(s) Performed: BRIEF HISTORY: Patient is a 26-year-old pleasant white female, scheduled for an elective colonoscopy as a part of evaluation of left lower quadrant abdominal pain and change in bowel habits with intermittent rectal bleeding for the last 6 months duration. PROCEDURE PERFORMED: Colonoscopy. PREOPERATIVE DIAGNOSIS: Abdominal Pain, change in bowel habits and intermittent rectal bleeding. IV sedation per Anesthesia. PROCEDURE: After informed consent was obtained, the patient, was brought into the endoscopy unit. IV sedation was administered by Anesthesia under continuous monitoring. Digital rectal examination was normal. Initially the Olympus CF- 160 flexible video colonoscope was then inserted in the rectum, gradually advanced into the cecum without any difficulty. Careful examination was performed as the scope was gradually being withdrawn. Ileocecal valve and the appendiceal orifice were visualized and appeared normal. Prep was good.. Mucosa of the cecum, ascending colon, transverse colon, descending colon, sigmoid colon, and rectum appeared normal. Retroflexion was performed in the rectum and no lesions were seen. The patient tolerated the procedure well. IMPRESSION: Normal-appearing colon from rectum to cecum with no evidence of colorectal neoplasia. RECOMMENDATIONS: Findings of this examination were discussed with the patient as well as a family. She was advised to follow up in office in 2 weeks..
[2017-06-09 12:21] VITALS: BP 95/63; PULSE 64
== END 2017-06-09 13:03 | disposition home or self-care (01) ==
LOC: ORWHC2ENDO 10:24
PROVIDERS: ATTEND Internal Medicine Gastroenterology
DX: K62.5 Hemorrhage of anus and rectum (principal); J45.909 Unspecified asthma, uncomplicated; F41.9 Anxiety disorder, unspecified; G43.909 Migraine, unspecified, not intractable, without status migrainosus; Z79.82 Long term (current) use of aspirin; Z79.899 Other long term (current) drug therapy; Z88.8 Allergy status to other drugs, medicaments and biological substances; Z88.5 Allergy status to narcotic agent; Z91.040 Latex allergy status; Z88.2 Allergy status to sulfonamides; Z91.018 Allergy to other foods
CPT/HCPCS: 81025; 45378; J2704

== ENCOUNTER → 2017-07-24 | Outpatient (CLI) | payer OTHER ==
--- NOTE | 2017-07-25 17:13 | MR ---
EXAMINATION TYPE: MR lumbar spine wo con DATE OF EXAM: 07/24/2017 COMPARISON: Radiographs 05/30/2017 HISTORY: 26-year-old female Low back pain TECHNIQUE: Multiplanar, multisequence images of the lumbar spine were acquired. Findings: Vertebral body heights are preserved and alignment is maintained. No suspicious bone marrow replacement. Conus medullaris is normal. No prevertebral or paravertebral soft tissue abnormality. At T12-L1, no spinal canal or neuroforaminal stenosis. At L1-L2, there is a left paracentral disc protrusion that does not cause significant spinal canal or neuroforaminal stenosis. At L2-L3, no spinal canal or foraminal stenosis. At L3-L4, no significant spinal canal or neuroforaminal stenosis. L4-L5, minimal disc bulge. No significant spinal canal or neuroforaminal stenosis. At L5-S1, no significant spinal canal or neural foraminal stenosis. IMPRESSION: 1. Early degenerative disc disease at L1-L2 with a left paracentral herniation. This does not contrib gabby to any significant spinal canal or neuroforaminal stenosis. 2. Minimal bulging disc at L4-L5. Again, no significant spinal canal or neuroforaminal stenosis.
== END | disposition home or self-care (01) ==
LOC: RADMRIMAIN 13:01
PROVIDERS: ATTEND Psychiatry & Neurology Neurology
DX: M51.36 Other intervertebral disc degeneration, lumbar region (principal)
CPT/HCPCS: 72148

== ENCOUNTER 2017-08-08 14:48 | Emergency (ER) | payer OTHER ==
[2017-08-08 15:28] VITALS: RESP 18; TEMP 97.6
[2017-08-08] MEDS ORDERED: SODIUM CHLORIDE 0.9% 1,000 ML IV STA (16:52)
[2017-08-08] MEDS ORDERED: ONDANSETRON 4 MG/2 ML VIAL IVP STA (16:52)
[2017-08-08] MEDS ORDERED: PANTOPRAZOLE 40 MG/10 ML VIAL IVP STA (16:52)
[2017-08-08] MEDS ORDERED: RX INFO: IV CONTRAST WAS GIVEN 1 EACH MISC MISCELLANE PRN (16:52)
[2017-08-08 18:05] LABS: Basophils % (A) 0 %; Eosinophils # (A) 0.1 k/uL (0-0.7); Eosinophils % (A) 1 %; HCT 44.2 % (34.0-46.0); HGB 15.8 gm/dL (11.4-16.0); Lymphocytes # (A) 2.7 k/uL (1.0-4.8); Lymphocytes % (A) 39 %; MCH 32.4 pg (25.0-35.0); MCHC 35.7 g/dL (31.0-37.0); MCV 90.9 fL (80.0-100.0); Mean Platelet Volume 7.5; Monocytes # (A) 0.2 k/uL (0-1.0); Monocytes % (A) 3 %; Neutrophils # (A) 3.9 k/uL (1.3-7.7); Neutrophils % (A) 56 %; Platelet Count 204 k/uL (150-450); RBC 4.87 m/uL (3.80-5.40); RDW 12.9 % (11.5-15.5)
--- NOTE | 2017-08-08 18:08 | ED ---
General Adult HPI - General Chief complaint: Abdominal Pain Stated complaint: LUQ Pain Time Seen by Provider: 08/08/17 16:48 Source: patient, RN notes reviewed, old records reviewed Mode of arrival: ambulatory Limitations: no limitations - History of Present Illness Initial comments: This is a 26-year-old female ER for evaluation, she presents today for evaluation of bowel pain, left quadrant pain. Mild nausea no vomiting. No fevers. Patient states symptoms are worse after moving worse after eating. Symptoms 2 days. No 5 hours of similar complaints. No prior history of similar complaints, no surgical history - Related Data Home Medications Medication Instructions Recorded Confirmed tiZANidine HCL [Zanaflex] 4 mg PO BID PRN 04/16/16 08/08/17 QUEtiapine FUMARATE [SEROquel] 300 mg PO HS 07/15/16 08/08/17 Albuterol Inhaler [Ventolin Hfa 1 - 2 puff INHALATION RT-Q6H PRN 07/29/16 Inhaler] Omeprazole [PriLOSEC] 40 mg PO HS 07/29/16 08/08/17 Topiramate [Topamax] 50 mg PO HS 04/22/17 08/08/17 Aspirin [Adult Low Dose Aspirin EC] 81 mg PO HS PRN 05/18/17 08/08/17 Allergies Allergy/AdvReac Type Severity Reaction Status Date / Time haloperidol [From Haldol] Allergy Severe QUIT Verified 08/08/17 15:28 BREATHING haloperidol lactate Allergy Severe QUIT Verified 08/08/17 15:28 [From Haldol] BREATHING latex Allergy Severe RASH-THROAT Verified 08/08/17 15:28 CLOSES promethazine HCl Allergy Severe Nausea & Verified 08/08/17 15:28 [From Phenergan] Vomiting amoxicillin Allergy Nausea & Verified 08/08/17 15:28 Vomiting bee pollen Allergy Unknown Verified 08/08/17 15:28 ketorolac tromethamine Allergy Nausea & Verified 08/08/17 15:28 [From Toradol] Vomiting prednisone Allergy THROAT Verified 08/08/17 15:28 SWELLS spider venom Allergy Swelling Verified 08/08/17 15:28 Sulfa (Sulfonamide Allergy THROAT Verified 08/08/17 15:28 Antibiotics) SWELLS codeine phosphate AdvReac Nausea & Verified 08/08/17 15:28 [From Tylenol-Codeine #3] Vomiting ANTS Allergy Unknown Uncoded 08/08/17 15:28 WASP Allergy Unknown Uncoded 08/08/17 15:28 Review of Systems ROS Statement: Those systems with pertinent positive or pertinent negative responses have been documented in the HPI. ROS Other: All systems not noted in ROS Statement are negative. Past Medical History Past Medical History: Asthma, Cancer, GERD/Reflux Additional Past Medical History / Comment(s): migraines, "heart races sometimes ", constipation/diarrhea, blood in stool, degenerative disk disease History of Any Multi-Drug Resistant Organisms: None Reported Past Surgical History: Orthopedic Surgery Additional Past Surgical History / Comment(s): laparoscopc surgery for endometriosis, cyst removed from left foot, EGD Past Anesthesia/Blood Transfusion Reactions: Previous Problems w/ Anesthesia Additional Past Anesthesia/Blood Transfusion Reaction / Comment(s): hard to wake up for 48-72 hours after laparoscopic surgery-was in hosp. for 3 days Past Psychological History: Anxiety, PTSD Smoking Status: Never smoker Past Alcohol Use History: None Reported Past Drug Use History: None Reported - Past Family History Mother Family Medical History: No Reported History Additional Family Medical History / Comment(s): hx migraines Father Family Medical History: Coronary Artery Disease (CAD), Hypertension Additional Family Medical History / Comment(s): ddd, alcoholism & drug use General Exam Limitations: no limitations General appearance: alert, in no apparent distress Head exam: Present: atraumatic, normocephalic, normal inspection Eye exam: Present: normal appearance, PERRL, EOMI. Absent: scleral icterus, conjunctival injection, periorbital swelling ENT exam: Present: normal exam, mucous membranes moist Neck exam: Present: normal inspection. Absent: tenderness, meningismus, lymphadenopathy Respiratory exam: Present: normal lung sounds bilaterally. Absent: respiratory distress, wheezes, rales, rhonchi, stridor Cardiovascular Exam: Present: regular rate, normal rhythm, normal heart sounds. Absent: systolic murmur, diastolic murmur, rubs, gallop, clicks GI/Abdominal exam: Present: soft, normal bowel sounds. Absent: distended, tenderness, guarding, rebound, rigid Extremities exam: Present: normal inspection, full ROM, normal capillary refill. Absent: tenderness, pedal edema, joint swelling, calf tenderness Back exam: Present: normal inspection Neurological exam: Present: alert, oriented X3, CN II-XII intact Psychiatric exam: Present: normal affect, normal mood Skin exam: Present: warm, dry, intact, normal color. Absent: rash Course Vital Signs 08/08/17 15:25 Temperature 97.6 F Pulse Rate 112 H Respiratory 18 Rate Blood Pressure 120/75 O2 Sat by Pulse 100 Oximetry Medical Decision Making - Lab Data Result diagrams: 08/08/17 17:50 08/08/17 17:50 Lab Results 08/08/17 08/08/17 Range/Units 17:50 17:50 WBC 7.0 (3.8-10.6) k/uL RBC 4.87 (3.80-5.40) m/uL Hgb 15.8 (11.4-16.0) gm/dL Hct 44.2 (34.0-46.0) % MCV 90.9 (80.0-100.0) fL MCH 32.4 (25.0-35.0) pg MCHC 35.7 (31.0-37.0) g/dL RDW 12.9 (11.5-15.5) % Plt Count 204 (150-450) k/uL Neutrophils % 56 % Lymphocytes % 39 % Monocytes % 3 % Eosinophils % 1 % Basophils % 0 % Neutrophils # 3.9 (1.3-7.7) k/uL Lymphocytes # 2.7 (1.0-4.8) k/uL Monocytes # 0.2 (0-1.0) k/uL Eosinophils # 0.1 (0-0.7) k/uL Basophils # 0.0 (0-0.2) k/uL Sodium 140 (137-145) mmol/L Potassium 4.3 (3.5-5.1) mmol/L Chloride 104 (98-107) mmol/L Carbon Dioxide 21 L (22-30) mmol/L Anion Gap 15 mmol/L BUN 10 (7-17) mg/dL Creatinine 0.96 (0.52-1.04) mg/dL Est GFR (CKD-EPI)AfAm >90 (>60 ml/min/1.73 sqM) Est GFR (CKD-EPI)NonAf 83 (>60 ml/min/1.73 sqM) Glucose 96 (74-99) mg/dL Calcium 10.3 H (8.4-10.2) mg/dL Total Bilirubin 0.5 (0.2-1.3) mg/dL AST 36 (14-36) U/L ALT 48 (9-52) U/L Alkaline Phosphatase 94 (38-126) U/L Total Protein 7.9 (6.3-8.2) g/dL Albumin 4.6 (3.5-5.0) g/dL Amylase 40 (30-110) U/L Lipase 156 (23-300) U/L Disposition Clinical Impression: Abdominal pain Disposition: HOME SELF-CARE Instructions: Abdominal Pain (ED) Is patient prescribed a controlled substance at d/c from ED?: No Referrals: Jaime Stanford Jr, DO [Primary Care Provider] - 1-2 days
[2017-08-08 18:17] LABS: ALT 48 U/L (9-52); AST 36 U/L (14-36); Albumin 4.6 g/dL (3.5-5.0); Alkaline Phosphatase 94 U/L (38-126); Amylase 40 U/L (30-110); Anion Gap 15 mmol/L; Blood Urea Nitrogen 10 mg/dL (7-17); Calcium 10.3 mg/dL (8.4-10.2); Carbon Dioxide 21 mmol/L (22-30); Chloride 104 mmol/L (98-107); Glucose 96 mg/dL (74-99); Lipase 156 U/L (23-300); Potassium 4.3 mmol/L (3.5-5.1); Sodium 140 mmol/L (137-145); Total Bilirubin 0.5 mg/dL (0.2-1.3); Total Protein 7.9 g/dL (6.3-8.2)
--- NOTE | 2017-08-08 18:37 | CT ---
EXAMINATION TYPE: CT abdomen pelvis w con DATE OF EXAM: 08/08/2017 COMPARISON: NONE HISTORY: Right upper quadrant pain. CT DLP: 1844 mGycm Automated exposure control for dose reduction was used. TECHNIQUE: Helical acquisition of images was performed from the lung bases through the pelvis. CONTRAST: Performed without Oral Contrast and with IV Contrast, patient injected with 100 mL of Isovue 300. FINDINGS: LUNG BASES: No significant abnormality is appreciated. LIVER/GB: Hepatic steatosis is noted with several areas of fatty sparing especially in the gallbladde r fossa. PANCREAS: No significant abnormality is seen. SPLEEN: No significant abnormality is seen. ADRENALS: No significant abnormality is seen. KIDNEYS: No significant abnormality is seen. FREE AIR: No free air is visualized. RETROPERITONEAL ADENOPATHY: None visualized REPRODUCTIVE ORGANS: No significant abnormality is seen URINARY BLADDER: No significant abnormality is seen. PELVIC ADENOPATHY: None visualized. OSSEOUS STRUCTURES: No significant abnormality is seen. BOWEL: No significant abnormality is seen. The appendix is visualized and is normal OTHER: None IMPRESSION: HEPATIC STEATOSIS IS NOTED WITH SEVERAL AREAS OF SPARING.
--- NOTE | 2017-08-08 19:05 | US ---
EXAMINATION TYPE: US gallbladder DATE OF EXAM: 08/08/2017 COMPARISON: NONE CLINICAL HISTORY: Pain. EXAM MEASUREMENTS: Liver Length: 18.7 cm Gallbladder Wall: 0.2 cm CBD: 0.5 cm Right Kidney: 10.1 x 4.3 x 4.9 cm Severely limited due to bowel gas, body habitus, and pt tolerance. Pancreas: Obscured by bowel gas Liver: Increased attenuation, decreased visualization of vessels suggestive of fatty infiltrate Gallbladder: Neck slightly obscured by overlying bowel gas Evidence for sonographic Velasquez's sign: Yes CBD: Appears prominent Right Kidney: wnl IMPRESSION: Hepatomegaly. Hepatic steatosis No findings to suggest cholelithiasis.
[2017-08-08 20:43] VITALS: BP 142/73; PULSE 97
== END 2017-08-08 20:42 | disposition home or self-care (01) ==
LOC: EC 14:48
DX: R10.32 Left lower quadrant pain (principal); R11.0 Nausea; J45.909 Unspecified asthma, uncomplicated; K21.9 Gastro-esophageal reflux disease without esophagitis; F41.9 Anxiety disorder, unspecified; G43.909 Migraine, unspecified, not intractable, without status migrainosus; Z85.9 Personal history of malignant neoplasm, unspecified; Z79.899 Other long term (current) drug therapy; Z88.0 Allergy status to penicillin; Z88.2 Allergy status to sulfonamides; Z91.040 Latex allergy status; Z88.8 Allergy status to other drugs, medicaments and biological substances; Z91.038 Other insect allergy status; Z88.5 Allergy status to narcotic agent; Z91.030 Bee allergy status; Z88.6 Allergy status to analgesic agent
CPT/HCPCS: 36415; 80053; 82150; 83690; 85025; 76705; 74177; 99284; 96374; 96375; 96361 ×3; J2405; C9113; Q9967

== ENCOUNTER 2017-11-18 22:20 | Emergency (ER) | payer OTHER ==
[2017-11-18] MEDS ORDERED: IBUPROFEN 600 MG TAB PO STA (23:10)
[2017-11-18] MEDS ORDERED: ACETAMINOPHEN TAB 325 MG TAB PO STA (23:10)
--- NOTE | 2017-11-18 23:34 | XR ---
EXAMINATION TYPE: XR forearm RT DATE OF EXAM: 11/18/2017 COMPARISON: NONE HISTORY: Pain TECHNIQUE: 2 views FINDINGS: I see no fracture nor dislocation. Wrist joint and elbow joint appear intact. IMPRESSION: Negative right forearm exam.
--- NOTE | 2017-11-18 23:35 | XR ---
EXAMINATION TYPE: XR hand complete RT DATE OF EXAM: 11/18/2017 COMPARISON: NONE HISTORY: Pain TECHNIQUE: 3 views FINDINGS: I see no fracture nor dislocation. Joint spaces are normal. Carpal bones are intact. Metaca rpals are intact. IMPRESSION: Negative right hand exam.
--- NOTE | 2017-11-18 23:58 | ED ---
Upper Extremity HPI - General Chief Complaint: Extremity Injury, Upper Stated Complaint: rt arm injury (fall) Time Seen by Provider: 11/18/17 23:03 Source: patient, family Mode of arrival: ambulatory Limitations: no limitations - History of Present Illness Initial Comments: 27-year-old female patient presents to the emergency department today for evaluation after experiencing a mechanical fall at home. Patient states that she was up a couple steps on a stepladder trying to install a security system when she lost her balance and fell landing on her right arm. Patient states she is having severe pain to the right hand, wrist, and forearm. Patient states the pain shoots her elbow but she is able to move the elbow without difficulty. She denies hitting her head or losing consciousness with this fall. She denies any neck or back pain. She denies any numbness or tingling to the arm. Denies any other injuries. Denies any chance of . Patient denies any headache, chest pain, shortness of breath, dizziness, weakness, abdominal pain, nausea, vomiting, or difficulties with bowel movements or urination. Patient denies any use of anticoagulant medication. - Related Data Home Medications Medication Instructions Recorded Confirmed tiZANidine HCL [Zanaflex] 4 mg PO BID PRN 04/16/16 11/18/17 QUEtiapine FUMARATE [SEROquel] 300 mg PO HS 07/15/16 11/18/17 Omeprazole [PriLOSEC] 40 mg PO HS 07/29/16 11/18/17 Topiramate [Topamax] 50 mg PO HS 04/22/17 11/18/17 Dicyclomine [Bentyl] 20 mg PO BID 11/18/17 11/18/17 Montelukast [Singulair] 10 mg PO HS 11/18/17 11/18/17 Previous Rx's Medication Instructions Recorded Ibuprofen [Motrin] 600 mg PO Q8HR PRN #30 tab 11/18/17 Allergies Allergy/AdvReac Type Severity Reaction Status Date / Time haloperidol [From Haldol] Allergy Severe QUIT Verified 11/18/17 23:14 BREATHING haloperidol lactate Allergy Severe QUIT Verified 11/18/17 23:14 [From Haldol] BREATHING latex Allergy Severe RASH-THROAT Verified 11/18/17 23:14 CLOSES promethazine HCl Allergy Severe Nausea & Verified 11/18/17 23:14 [From Phenergan] Vomiting amoxicillin Allergy Nausea & Verified 11/18/17 23:14 Vomiting bee pollen Allergy Unknown Verified 11/18/17 23:14 ketorolac tromethamine Allergy Nausea & Verified 11/18/17 23:14 [From Toradol] Vomiting prednisone Allergy THROAT Verified 11/18/17 23:14 SWELLS spider venom Allergy Swelling Verified 11/18/17 23:14 Sulfa (Sulfonamide Allergy THROAT Verified 11/18/17 23:14 Antibiotics) SWELLS codeine phosphate AdvReac Nausea & Verified 11/18/17 23:14 [From Tylenol-Codeine #3] Vomiting ANTS Allergy Unknown Uncoded 11/18/17 23:01 WASP Allergy Unknown Uncoded 11/18/17 23:01 Review of Systems ROS Statement: Those systems with pertinent positive or pertinent negative responses have been documented in the HPI. ROS Other: All systems not noted in ROS Statement are negative. Past Medical History Past Medical History: Asthma, Cancer, GERD/Reflux Additional Past Medical History / Comment(s): migraines, "heart races sometimes ", constipation/diarrhea, blood in stool, degenerative disk disease History of Any Multi-Drug Resistant Organisms: None Reported Past Surgical History: Orthopedic Surgery Additional Past Surgical History / Comment(s): laparoscopc surgery for endometriosis, cyst removed from left foot, EGD Past Anesthesia/Blood Transfusion Reactions: Previous Problems w/ Anesthesia Additional Past Anesthesia/Blood Transfusion Reaction / Comment(s): hard to wake up for 48-72 hours after laparoscopic surgery-was in hosp. for 3 days Past Psychological History: Anxiety, PTSD Smoking Status: Never smoker Past Alcohol Use History: None Reported Past Drug Use History: None Reported - Past Family History Mother Family Medical History: No Reported History Additional Family Medical History / Comment(s): hx migraines Father Family Medical History: Coronary Artery Disease (CAD), Hypertension Additional Family Medical History / Comment(s): ddd, alcoholism & drug use General Exam Limitations: no limitations General appearance: alert, in no apparent distress, other (Physical well- developed, well-nourished adult female patient in no acute distress. Vital signs upon presentation are temperature 98.5F, pulse 96, respirations 20, blood pressure 133/81, pulse ox 97% on room air.) Head exam: Present: atraumatic, normocephalic, normal inspection Eye exam: Present: normal appearance, PERRL, EOMI. Absent: scleral icterus, conjunctival injection, periorbital swelling ENT exam: Present: normal exam, normal oropharynx, mucous membranes moist Neck exam: Present: normal inspection, full ROM, other (Nontender, no step-off, no deformity to firm midline palpation of the posterior cervical spine. Full range of motion without pain or limitation.). Absent: tenderness, meningismus, lymphadenopathy Respiratory exam: Present: normal lung sounds bilaterally. Absent: respiratory distress, wheezes, rales, rhonchi, stridor Cardiovascular Exam: Present: regular rate, normal rhythm, normal heart sounds. Absent: systolic murmur, diastolic murmur, rubs, gallop, clicks GI/Abdominal exam: Present: soft, normal bowel sounds. Absent: distended, tenderness, guarding, rebound, rigid Extremities exam: Present: normal inspection, full ROM, tenderness (Tenderness over the right wrist, dorsal hand, and forearm. No tenderness over the elbow. Patient does have full range of motion but does have increased pain with movement of the wrist. Patient has no anatomical snuffbox tenderness. Skin to the right hand and forearm is pink, warm, and dry. Cap refills less than 3 seconds. Radial pulses 2+ and equal bilaterally.), normal capillary refill. Absent: pedal edema, joint swelling, calf tenderness Back exam: Present: normal inspection, other (Nontender, no step-off, no deformity to firm midline palpation of the thoracic and lumbar vertebrae. Full range of motion without pain or limitation.). Absent: vertebral tenderness Neurological exam: Present: alert, oriented X3, CN II-XII intact Psychiatric exam: Present: normal affect, normal mood Skin exam: Present: warm, dry, intact, normal color. Absent: rash Course Vital Signs 11/18/17 11/19/17 22:58 00:06 Temperature 98.5 F 98 F Pulse Rate 96 93 Respiratory 20 18 Rate Blood Pressure 133/81 125/85 O2 Sat by Pulse 97 97 Oximetry Medical Decision Making - Medical Decision Making 27 year-old female patient presented to the emergency department today after expressing a mechanical fall at home. Patient did injure the right arm. X- rays of the hand and forearm were obtained, no evidence of fracture. Patient had no anatomical snuffbox tenderness. Given patient's pain and symptoms she most likely has a sprain of the right wrist. She'll be placed in an Desmond wrap. She was educated regarding rest, ice, and elevation. She'll be given prescription for ibuprofen for pain control. She is instructed to follow-up with her primary care physician for recheck in 1-2 days. We did discuss repeat imaging in 7-10 days if her symptoms persist. Return parameters discussed in detail. She verbalizes understanding and agrees with this plan. - Radiology Data Radiology results: report reviewed, image reviewed 3 views of the right hand are obtained. There is no fracture nor dislocation noted. Joint spaces are normal. Carpal bones are intact. Metacarpals are intact. Impression by Dr. Bender shows negative right hand exam. Right forearm x-ray was obtained. This no fracture or dislocation noted. Wrist joint and elbow joint appear intact. Impression by Dr. Bender shows negative right forearm exam. Disposition Clinical Impression: Right wrist sprain Disposition: HOME SELF-CARE Condition: Good Instructions: Wrist Sprain (ED) Additional Instructions: Rest, ice, elevate the right wrist. He was Desmond wrap for comfort and support. Follow-up with your primary care physician for recheck in 1-2 days. Have repeat x-rays performed in 7-10 days if pain symptoms persist. Return here immediately for any new, worsening, or concerning symptoms. Prescriptions: Ibuprofen [Motrin] 600 mg PO Q8HR PRN #30 tab PRN Reason: Pain Is patient prescribed a controlled substance at d/c from ED?: No Referrals: Jaime Stanford Jr, DO [Primary Care Provider] - 1-2 days Time of Disposition: 23:58
[2017-11-19 00:07] VITALS: BP 125/85; PULSE 93; RESP 18; TEMP 98
== END 2017-11-19 00:07 | disposition home or self-care (01) ==
LOC: EC 22:20
DX: S63.501A Unspecified sprain of right wrist, initial encounter (principal); J45.909 Unspecified asthma, uncomplicated; K21.9 Gastro-esophageal reflux disease without esophagitis; Z79.899 Other long term (current) drug therapy; Z88.0 Allergy status to penicillin; Z88.2 Allergy status to sulfonamides; Z88.5 Allergy status to narcotic agent; Z88.6 Allergy status to analgesic agent; Z88.8 Allergy status to other drugs, medicaments and biological substances; Z91.018 Allergy to other foods; Z91.038 Other insect allergy status; Z91.040 Latex allergy status; Z86.69 Personal history of other diseases of the nervous system and sense organs; W10.9XXA Fall (on) (from) unspecified stairs and steps, initial encounter; Y93.89 Activity, other specified; Y92.009 Unspecified place in unspecified non-institutional (private) residence as the place of occurrence of the external cause
CPT/HCPCS: 99283

== ENCOUNTER 2017-12-13 14:02 | Emergency (ER) | payer OTHER ==
[2017-12-13 14:13] VITALS: RESP 18
[2017-12-13] MEDS ORDERED: METOCLOPRAMIDE 5 MG/ML 2 ML VIAL IVP STA (16:45)
[2017-12-13] MEDS ORDERED: SODIUM CHLORIDE 0.9% 1,000 ML IV STA (16:45)
[2017-12-13] MEDS ORDERED: diphenhydrAMINE 50 MG/ML 1 ML VIAL IVP STA (16:45)
--- NOTE | 2017-12-13 16:47 | ED ---
General Adult HPI - General Chief complaint: Headache Stated complaint: headache/blurred vision Time Seen by Provider: 12/13/17 16:36 Source: patient, RN notes reviewed, old records reviewed Mode of arrival: ambulatory Limitations: no limitations - History of Present Illness Initial comments: Patient's 27-year-old female seen to be a past medical history for migraines, presenting to the emergency room today with a chief complaint of migraine headache that started yesterday. Patient states that she struck Topamax ibuprofen at home little relief. Patient admits that photosensitivity and nausea. States his symptoms are consistent with migraine headaches since having the past. Patient denies any other complaints symptoms. Patient denies any recent fever, chills, shortness of breath, chest pain, back pain, abdominal pain, nausea or vomiting, numbness or tingling, visual changes, or any other complaints. - Related Data Home Medications Medication Instructions Recorded Confirmed tiZANidine HCL [Zanaflex] 4 mg PO BID PRN 04/16/16 11/18/17 QUEtiapine FUMARATE [SEROquel] 300 mg PO HS 07/15/16 11/18/17 Omeprazole [PriLOSEC] 40 mg PO HS 07/29/16 11/18/17 Topiramate [Topamax] 50 mg PO HS 04/22/17 11/18/17 Dicyclomine [Bentyl] 20 mg PO BID 11/18/17 11/18/17 Montelukast [Singulair] 10 mg PO HS 11/18/17 11/18/17 Previous Rx's Medication Instructions Recorded Ibuprofen [Motrin] 600 mg PO Q8HR PRN #30 tab 11/18/17 Allergies Allergy/AdvReac Type Severity Reaction Status Date / Time haloperidol [From Haldol] Allergy Severe QUIT Verified 12/13/17 14:13 BREATHING haloperidol lactate Allergy Severe QUIT Verified 12/13/17 14:13 [From Haldol] BREATHING latex Allergy Severe RASH-THROAT Verified 12/13/17 14:13 CLOSES promethazine HCl Allergy Severe Nausea & Verified 12/13/17 14:13 [From Phenergan] Vomiting amoxicillin Allergy Nausea & Verified 12/13/17 14:13 Vomiting bee pollen Allergy Unknown Verified 12/13/17 14:13 ketorolac tromethamine Allergy Nausea & Verified 12/13/17 14:13 [From Toradol] Vomiting prednisone Allergy THROAT Verified 12/13/17 14:13 SWELLS spider venom Allergy Swelling Verified 12/13/17 14:13 Sulfa (Sulfonamide Allergy THROAT Verified 12/13/17 14:13 Antibiotics) SWELLS codeine phosphate AdvReac Nausea & Verified 12/13/17 14:13 [From Tylenol-Codeine #3] Vomiting ANTS Allergy Unknown Uncoded 12/13/17 14:13 WASP Allergy Unknown Uncoded 12/13/17 14:13 Review of Systems ROS Statement: Those systems with pertinent positive or pertinent negative responses have been documented in the HPI. ROS Other: All systems not noted in ROS Statement are negative. Past Medical History Past Medical History: Asthma, Cancer, GERD/Reflux Additional Past Medical History / Comment(s): migraines, "heart races sometimes ", constipation/diarrhea, blood in stool, degenerative disk disease History of Any Multi-Drug Resistant Organisms: None Reported Past Surgical History: Orthopedic Surgery Additional Past Surgical History / Comment(s): laparoscopc surgery for endometriosis, cyst removed from left foot, EGD Past Anesthesia/Blood Transfusion Reactions: Previous Problems w/ Anesthesia Additional Past Anesthesia/Blood Transfusion Reaction / Comment(s): hard to wake up for 48-72 hours after laparoscopic surgery-was in hosp. for 3 days Past Psychological History: Anxiety, PTSD Smoking Status: Never smoker Past Alcohol Use History: None Reported Past Drug Use History: None Reported - Past Family History Mother Family Medical History: No Reported History Additional Family Medical History / Comment(s): hx migraines Father Family Medical History: Coronary Artery Disease (CAD), Hypertension Additional Family Medical History / Comment(s): ddd, alcoholism & drug use General Exam - General Exam Comments Initial Comments: General: The patient is awake and alert, in no distress, and does not appear acutely ill. Eye: Pupils are equal, round and reactive to light, extra-ocular movements are intact. No nystagmus. There is normal conjunctiva bilaterally. No signs of icterus. Ears, nose, mouth and throat: There are moist mucous membranes and no oral lesions. Neck: The neck is supple, there is no tenderness or JVD. Cardiovascular: There is a regular rate and rhythm. No murmur, rub or gallop is appreciated. Respiratory: Lungs are clear to auscultation, respirations are non-labored, breath sounds are equal. No wheezes, stridor, rales, or rhonchi. Musculoskeletal: Normal ROM, no tenderness. Strength 5/5. Sensation intact. Neurological: A&O x 3. CN II-XII intact, There are no obvious motor or sensory deficits. Coordination appears grossly intact. Speech is normal. Skin: Skin is warm and dry and no rashes or lesions are noted. Psychiatric: Cooperative, appropriate mood & affect, normal judgment. Limitations: no limitations Course Vital Signs 12/13/17 14:11 Temperature 98.7 F Pulse Rate 94 Respiratory 18 Rate Blood Pressure 132/83 O2 Sat by Pulse 97 Oximetry Medical Decision Making - Medical Decision Making Patient reexamined at this time states still experiencing migraine-like headache. Nursing staff was unable to establish IV access. Patient's agreeable to IM shots Toradol (patient states that had local reaction at the site is agreeable for this med), Reglan, by mouth Benadryl for her migraine. Advised using ibuprofen for any rebound headaches. Advised follow family doctor next 2 days. Advised return for any other concerns. Disposition Clinical Impression: Migraine Disposition: HOME SELF-CARE Condition: Good Instructions: Migraine Headache (ED) Additional Instructions: Please use medication as discussed. Please follow-up with family doctor in the next 2 days of symptoms have not improved. Please return to emergency room if the symptoms increase or worsen or for any other concerns. Is patient prescribed a controlled substance at d/c from ED?: No Referrals: Jaime Stanford Jr, DO [Primary Care Provider] - 1-2 days Time of Disposition: 18:50
[2017-12-13] MEDS ORDERED: diphenhydrAMINE 50 MG CAP PO STA (18:47)
[2017-12-13] MEDS ORDERED: KETOROLAC 60 MG/2 ML VIAL IM STA (18:47)
[2017-12-13] MEDS ORDERED: METOCLOPRAMIDE 5 MG/ML 2 ML VIAL IM PRN (18:47)
[2017-12-13 19:59] VITALS: BP 144/91; PULSE 81; TEMP 98.2
== END 2017-12-13 19:59 | disposition home or self-care (01) ==
LOC: EC 14:02
DX: G43.909 Migraine, unspecified, not intractable, without status migrainosus (principal); J45.909 Unspecified asthma, uncomplicated; K21.9 Gastro-esophageal reflux disease without esophagitis; F41.9 Anxiety disorder, unspecified; F43.10 Post-traumatic stress disorder, unspecified; Z98.890 Other specified postprocedural states; Z79.899 Other long term (current) drug therapy; Z88.0 Allergy status to penicillin; Z88.2 Allergy status to sulfonamides; Z88.5 Allergy status to narcotic agent; Z88.6 Allergy status to analgesic agent; Z88.8 Allergy status to other drugs, medicaments and biological substances; Z91.030 Bee allergy status; Z91.040 Latex allergy status; Z91.048 Other nonmedicinal substance allergy status
CPT/HCPCS: 99283; 96372 ×2; J2765; J1885

== ENCOUNTER → 2018-03-09 | Outpatient (CLI) | payer OTHER ==
--- NOTE | 2018-03-09 16:40 | CT ---
EXAMINATION TYPE: CT lumbar spine wo con DATE OF EXAM: 03/09/2018 4:28 PM COMPARISON: MR scan for 1418 HISTORY: Patient complains of low back pain post pain injection. CT DLP: 1212.7 mGycm Automated exposure control for dose reduction was used. Unenhanced CT of the lumbar spine was performed. Bone and soft tissue window settings are submitted as well as coronal and sagittal reconstructions. Lumbar vertebra have normal spacing and alignment. There is no compression fracture. Posterior elemen ts appear intact. Sacral iliac joints appear normal. Sacrum appears intact. There is no lumbar parasp inal mass. There is no spinal stenosis. There is small posterior disc bulge and herniation on the lef t side at L1-2. The neural foramina are widely patent. IMPRESSION: There is mild posterior disc herniation at L1-2 on the left side unchanged or slightly smaller than M R scan of 07/24/2017.
== END | disposition home or self-care (01) ==
LOC: RADCTMAIN 16:11
PROVIDERS: ATTEND Psychiatry & Neurology Neurology
DX: M51.26 Other intervertebral disc displacement, lumbar region (principal); Z88.5 Allergy status to narcotic agent; Z88.2 Allergy status to sulfonamides; Z88.8 Allergy status to other drugs, medicaments and biological substances
CPT/HCPCS: 72131

== ENCOUNTER 2018-04-29 21:55 | Emergency (ER) | payer OTHER ==
[2018-04-29] MEDS ORDERED: KETOROLAC 60 MG/2 ML VIAL IM STA (23:38)
[2018-04-29] MEDS ORDERED: ORPHENADRINE 30 MG/ML 2 ML VIAL IM STA (23:38)
--- NOTE | 2018-04-30 00:30 | XR ---
EXAMINATION TYPE: XR lumbar spine 2 or 3V DATE OF EXAM: 04/30/2018 COMPARISON: NONE HISTORY: Fall. Pain TECHNIQUE: 3 views FINDINGS: Lumbar vertebra have normal spacing and alignment. Posterior elements are intact. I see no compression fracture. Sacroiliac joints appear normal. IMPRESSION: Normal lumbar spine.
--- NOTE | 2018-04-30 00:36 | ED ---
Back Pain HPI - General Chief Complaint: Back Pain/Injury Stated Complaint: Fall, back injury Time Seen by Provider: 04/29/18 23:16 Source: patient, family, RN notes reviewed, old records reviewed Limitations: no limitations - History of Present Illness Initial Comments: 27-year-old female presents emergency room today with lower and mid back pain after falling multiple times in the shower yesterday. She complains of lower spinal pain. She denies any saddle anesthesias. She denies any peripheral paresthesias. Patient states she's been taking Zanaflex, ibuprofen and her 's pain medication. - Related Data Home Medications Medication Instructions Recorded Confirmed tiZANidine HCL [Zanaflex] 4 mg PO BID PRN 04/16/16 04/29/18 Omeprazole [PriLOSEC] 40 mg PO HS 07/29/16 04/29/18 Topiramate [Topamax] 50 mg PO HS 04/22/17 04/29/18 Ibuprofen [Motrin Ib] 400 mg PO Q6H PRN 04/29/18 04/29/18 Propranolol (Unknown) 1 tab PO DAILY 04/29/18 04/29/18 QUEtiapine FUMARATE [SEROquel] 400 mg PO DAILY 04/29/18 04/29/18 Previous Rx's Medication Instructions Recorded Ibuprofen 600 mg PO TID #20 tablet 04/30/18 Allergies Allergy/AdvReac Type Severity Reaction Status Date / Time haloperidol [From Haldol] Allergy Severe QUIT Verified 04/29/18 23:05 BREATHING haloperidol lactate Allergy Severe QUIT Verified 04/29/18 23:05 [From Haldol] BREATHING latex Allergy Severe RASH-THROAT Verified 04/29/18 23:05 CLOSES promethazine HCl Allergy Severe Nausea & Verified 04/29/18 23:05 [From Phenergan] Vomiting amoxicillin Allergy Nausea & Verified 04/29/18 23:05 Vomiting bee pollen Allergy Unknown Verified 04/29/18 23:05 ketorolac tromethamine Allergy Nausea & Verified 04/29/18 23:05 [From Toradol] Vomiting prednisone Allergy THROAT Verified 04/29/18 23:05 SWELLS spider venom Allergy Swelling Verified 04/29/18 23:05 Sulfa (Sulfonamide Allergy THROAT Verified 04/29/18 23:05 Antibiotics) SWELLS codeine phosphate AdvReac Nausea & Verified 04/29/18 23:05 [From Tylenol-Codeine #3] Vomiting ANTS Allergy Unknown Uncoded 04/29/18 22:33 WASP Allergy Unknown Uncoded 04/29/18 22:33 Review of Systems ROS Statement: Those systems with pertinent positive or pertinent negative responses have been documented in the HPI. ROS Other: All systems not noted in ROS Statement are negative. Past Medical History Past Medical History: Asthma, Cancer, GERD/Reflux Additional Past Medical History / Comment(s): migraines, "heart races sometimes ", constipation/diarrhea, blood in stool, degenerative disk disease History of Any Multi-Drug Resistant Organisms: None Reported Past Surgical History: Orthopedic Surgery Additional Past Surgical History / Comment(s): laparoscopc surgery for endometriosis, cyst removed from left foot, EGD Past Anesthesia/Blood Transfusion Reactions: Previous Problems w/ Anesthesia Additional Past Anesthesia/Blood Transfusion Reaction / Comment(s): hard to wake up for 48-72 hours after laparoscopic surgery-was in hosp. for 3 days Past Psychological History: Anxiety, PTSD Smoking Status: Never smoker Past Alcohol Use History: None Reported Past Drug Use History: None Reported - Past Family History Mother Family Medical History: No Reported History Additional Family Medical History / Comment(s): hx migraines Father Family Medical History: Coronary Artery Disease (CAD), Hypertension Additional Family Medical History / Comment(s): ddd, alcoholism & drug use General Exam - General Exam Comments Initial Comments: 27 -year-old d female. Alert and oriented. No distress. General: Well appearing, well nourished, in no distress. Oriented x 3, normal mood and affect . Ambulating without difficulty. Skin: Good turgor, no rash, unusual bruising or prominent lesions Hair: Normal texture and distribution. Heart: No cardiomegaly or thrills; regular rate and rhythm, no murmur or gallop Lungs: Clear to auscultation and percussion Abdomen: Bowel sounds normal, no tenderness, organomegaly, masses, or hernia Back: Spine normal without deformity. Lumbar spinal tenderness. Tenderness over the mid thoracic area. Evidence of muscle spasm. Rectal: Normal sphincter tone, no hemorrhoids or masses palpable Extremities: No amputations or deformities, cyanosis, edema or varicosities, peripheral pulses intact Musculoskeletal: Normal gait and station. Neurologic: CN 2-12 normal. Sensation to pain, touch, and proprioception normal. Psychiatric: Oriented X3, intact recent and remote memory, judgment and insight , normal mood and affect. Limitations: no limitations Course Vital Signs 04/29/18 04/30/18 22:31 01:51 Temperature 99 F 98.6 F Pulse Rate 75 79 Respiratory 20 16 Rate Blood Pressure 138/88 118/100 O2 Sat by Pulse 98 97 Oximetry Medical Decision Making - Medical Decision Making 7-year-old female with acute emergent and thoracic back pain. She has a history of chronic back pain. She is on less relaxers anti-inflammatory medicine. She has also taken some of her waist pain medication. At this time she has some tenderness to the spine. X-rays reviewed. Negative for any acute abnormalities. No compression fracture. Patient was given IM pain medication. He does report improvement of this time. Discussed with discharge the Patient with anti-inflammatory medication. No further narcotic pain meds. All questions answered return parameters were discussed. - Radiology Data Radiology results: report reviewed Normal thoracic and lumbar spine x-rays. Disposition Clinical Impression: Acute exacerbation of chronic low back pain Disposition: HOME SELF-CARE Condition: Good Instructions: Acute Low Back Pain (ED) Additional Instructions: Patient is to alternate heat and ice. Patient should take muscle relaxer and anti-inflammatory medicine as prescribed Return to emergency department if any alarming signs or symptoms occur. Prescriptions: Ibuprofen 600 mg PO TID #20 tablet Is patient prescribed a controlled substance at d/c from ED?: No Referrals: Jaime Stanford Jr, DO [Primary Care Provider] - 1-2 days Time of Disposition: 01:14
[2018-04-30] MEDS ORDERED: MORPHINE SULFATE 4 MG/ML SYRINGE IM STA (00:42)
--- NOTE | 2018-04-30 00:51 | XR ---
EXAMINATION TYPE: XR thoracic spine 2V DATE OF EXAM: 04/30/2018 COMPARISON: 05/30/2017 HISTORY: Fall TECHNIQUE: 3 views FINDINGS: Thoracic vertebra have normal spacing and alignment. Posterior elements are intact. There i s no paraspinal mass. IMPRESSION: Normal thoracic spine.
[2018-04-30] MEDS ORDERED: ACET/COD 300 MG/30 MG STARTER PACK 6 TAB BTL PO STA (01:16)
[2018-04-30 01:53] VITALS: BP 118/100; PULSE 79; RESP 16; TEMP 98.6
== END 2018-04-30 01:51 | disposition home or self-care (01) ==
LOC: EC 21:55
DX: M54.5 Low back pain (principal); G89.29 Other chronic pain; M62.830 Muscle spasm of back; K21.9 Gastro-esophageal reflux disease without esophagitis; F41.9 Anxiety disorder, unspecified; Z88.0 Allergy status to penicillin; Z88.2 Allergy status to sulfonamides; Z88.5 Allergy status to narcotic agent; Z88.6 Allergy status to analgesic agent; Z88.8 Allergy status to other drugs, medicaments and biological substances; Z91.018 Allergy to other foods; Z91.038 Other insect allergy status; Z91.040 Latex allergy status; Z79.899 Other long term (current) drug therapy; Z86.69 Personal history of other diseases of the nervous system and sense organs; Z82.69 Family history of other diseases of the musculoskeletal system and connective tissue; Z53.8 Procedure and treatment not carried out for other reasons; W18.2XXA Fall in (into) shower or empty bathtub, initial encounter; Y92.002 Bathroom of unspecified non-institutional (private) residence as the place of occurrence of the external cause
CPT/HCPCS: 99284 ×2; 96372 ×3; 72070; 72100; J2270; J1885

== ENCOUNTER 2018-05-24 19:07 | Emergency (ER) | payer OTHER ==
[2018-05-24 19:31] VITALS: RESP 18
[2018-05-24] MEDS ORDERED: SODIUM CHLORIDE 0.9% 1,000 ML IV STA (19:44)
[2018-05-24] MEDS ORDERED: HYDROcodone/APAP 5-325MG 1 EACH TAB PO STA (19:52)
[2018-05-24] MEDS ORDERED: ONDANSETRON 4 MG/2 ML VIAL IVP STA (19:53)
--- NOTE | 2018-05-24 19:54 | ED ---
Abdominal Pain HPI - General Chief Complaint: Abdominal Pain Stated Complaint: Abd pain Time Seen by Provider: 05/24/18 19:44 Source: patient, RN notes reviewed Mode of arrival: ambulatory Limitations: no limitations - History of Present Illness Initial Comments: 27-year-old female presents emergency Department with chief complaint of right- sided abdominal pain. Patient states pain started this morning denies any nausea vomiting diarrhea constipation. Patient states that pain is worse with movement. She does have a history of ovarian cyst. Denies any vaginal bleeding or vaginal discharge last mental cycle one week ago. Patient denies any back pain, flank pain. Patient states she does have a history of constipation this feels slightly different. Patient denies any trauma no fever or chills. - Related Data Home Medications Medication Instructions Recorded Confirmed tiZANidine HCL [Zanaflex] 4 mg PO BID PRN 04/16/16 05/24/18 Omeprazole [PriLOSEC] 40 mg PO HS 07/29/16 05/24/18 Topiramate [Topamax] 50 mg PO HS 04/22/17 05/24/18 QUEtiapine FUMARATE [SEROquel] 400 mg PO HS 04/29/18 05/24/18 Albuterol Inhaler [Ventolin Hfa 2 puff INHALATION RT-Q6H PRN 05/24/18 05/24/18 Inhaler] Propranolol HCl 20 mg PO BID 05/24/18 05/24/18 Vortioxetine Hydrobromide 5 mg PO DAILY 05/24/18 05/24/18 [Trintellix] Allergies Allergy/AdvReac Type Severity Reaction Status Date / Time haloperidol [From Haldol] Allergy Severe QUIT Verified 05/24/18 20:54 BREATHING haloperidol lactate Allergy Severe QUIT Verified 05/24/18 20:54 [From Haldol] BREATHING latex Allergy Severe RASH-THROAT Verified 05/24/18 20:54 CLOSES promethazine HCl Allergy Severe Nausea & Verified 05/24/18 20:54 [From Phenergan] Vomiting amoxicillin Allergy Nausea & Verified 05/24/18 20:54 Vomiting bee pollen Allergy Unknown Verified 05/24/18 20:54 ketorolac tromethamine Allergy Nausea & Verified 05/24/18 20:54 [From Toradol] Vomiting prednisone Allergy THROAT Verified 05/24/18 20:54 SWELLS spider venom Allergy Swelling Verified 05/24/18 20:54 Sulfa (Sulfonamide Allergy THROAT Verified 05/24/18 20:54 Antibiotics) SWELLS codeine phosphate AdvReac Nausea & Verified 05/24/18 20:54 [From Tylenol-Codeine #3] Vomiting ANTS Allergy Unknown Uncoded 05/24/18 19:31 WASP Allergy Unknown Uncoded 05/24/18 19:31 Review of Systems ROS Statement: Those systems with pertinent positive or pertinent negative responses have been documented in the HPI. ROS Other: All systems not noted in ROS Statement are negative. Past Medical History Past Medical History: Asthma, GERD/Reflux Additional Past Medical History / Comment(s): migraines, constipation/diarrhea, degenerative disk disease, endometriosis History of Any Multi-Drug Resistant Organisms: None Reported Past Surgical History: Orthopedic Surgery Additional Past Surgical History / Comment(s): laparoscopc surgery for endometriosis, cyst removed from left foot, EGD Past Anesthesia/Blood Transfusion Reactions: Previous Problems w/ Anesthesia Additional Past Anesthesia/Blood Transfusion Reaction / Comment(s): hard to wake up for 48-72 hours after laparoscopic surgery-was in hosp. for 3 days Past Psychological History: Anxiety, PTSD Smoking Status: Never smoker Past Alcohol Use History: None Reported Past Drug Use History: None Reported - Past Family History Mother Family Medical History: No Reported History Additional Family Medical History / Comment(s): hx migraines Father Family Medical History: Coronary Artery Disease (CAD), Hypertension Additional Family Medical History / Comment(s): ddd, alcoholism & drug use General Exam Limitations: no limitations General appearance: alert, in no apparent distress Head exam: Present: atraumatic, normocephalic, normal inspection Respiratory exam: Present: normal lung sounds bilaterally. Absent: respiratory distress, wheezes, rales, rhonchi, stridor Cardiovascular Exam: Present: regular rate, normal rhythm, normal heart sounds. Absent: systolic murmur, diastolic murmur, rubs, gallop, clicks GI/Abdominal exam: Present: soft, tenderness (Mild right lower quadrant tenderness), normal bowel sounds. Absent: distended, guarding, rebound, rigid Back exam: Absent: CVA tenderness (R), CVA tenderness (L) Neurological exam: Present: alert, oriented X3, CN II-XII intact Skin exam: Present: warm, dry, intact, normal color. Absent: rash Course Vital Signs 05/24/18 05/24/18 19:27 21:41 Temperature 97.6 F Pulse Rate 86 84 Respiratory 18 18 Rate Blood Pressure 116/85 136/100 O2 Sat by Pulse 98 99 Oximetry Medical Decision Making - Medical Decision Making 27-year-old female presented from for abdominal pain. Patient had ultrasound, lab work. Patient's found to have free Fluid consistent with ovarian cyst rupture. Patient will be discharged time return parameters discussed. - Lab Data Result diagrams: 05/24/18 21:30 05/24/18 22:10 Lab Results 05/24/18 05/24/18 05/24/18 Range/Units 20:22 20:22 21:30 WBC 7.4 (3.8-10.6) k/uL RBC 4.49 (3.80-5.40) m/uL Hgb 14.5 (11.4-16.0) gm/dL Hct 42.2 (34.0-46.0) % MCV 94.1 (80.0-100.0) fL MCH 32.3 (25.0-35.0) pg MCHC 34.3 (31.0-37.0) g/dL RDW 13.6 (11.5-15.5) % Plt Count 160 (150-450) k/uL Neutrophils % 54 % Lymphocytes % 39 % Monocytes % 5 % Eosinophils % 2 % Basophils % 1 % Neutrophils # 4.0 (1.3-7.7) k/uL Lymphocytes # 2.9 (1.0-4.8) k/uL Monocytes # 0.3 (0-1.0) k/uL Eosinophils # 0.1 (0-0.7) k/uL Basophils # 0.0 (0-0.2) k/uL Carbon Dioxide (22-30) mmol/L BUN (7-17) mg/dL Creatinine (0.52-1.04) mg/dL Est GFR (CKD-EPI)AfAm (>60 ml/min/1.73 sqM) Est GFR (CKD-EPI)NonAf (>60 ml/min/1.73 sqM) Total Bilirubin (0.2-1.3) mg/dL AST (14-36) U/L Total Protein (6.3-8.2) g/dL Albumin (3.5-5.0) g/dL Urine Color Yellow Urine Appearance Clear (Clear) Urine pH 7.0 (5.0-8.0) Ur Specific [place] 1.011 (1.001-1.035) Urine Protein Negative (Negative) Urine Glucose (UA) Negative (Negative) Urine Ketones Negative (Negative) Urine Blood Negative (Negative) Urine Nitrite Negative (Negative) Urine Bilirubin Negative (Negative) Urine Urobilinogen 2.0 (<2.0) mg/dL Ur Leukocyte Esterase Trace H (Negative) Urine RBC <1 (0-5) /hpf Urine WBC 2 (0-5) /hpf Ur Squamous Epith Cells 1 (0-4) /hpf Urine Bacteria Rare H (None) /hpf Urine Mucus Rare H (None) /hpf Urine HCG, Qual Not Detected (Not Detectd) 05/24/18 Range/Units 22:10 WBC (3.8-10.6) k/uL RBC (3.80-5.40) m/uL Hgb (11.4-16.0) gm/dL Hct (34.0-46.0) % MCV (80.0-100.0) fL MCH (25.0-35.0) pg MCHC (31.0-37.0) g/dL RDW (11.5-15.5) % Plt Count (150-450) k/uL Neutrophils % % Lymphocytes % % Monocytes % % Eosinophils % % Basophils % % Neutrophils # (1.3-7.7) k/uL Lymphocytes # (1.0-4.8) k/uL Monocytes # (0-1.0) k/uL Eosinophils # (0-0.7) k/uL Basophils # (0-0.2) k/uL Carbon Dioxide 17 L (22-30) mmol/L BUN 9 (7-17) mg/dL Creatinine 0.74 (0.52-1.04) mg/dL Est GFR (CKD-EPI)AfAm >90 (>60 ml/min/1.73 sqM) Est GFR (CKD-EPI)NonAf >90 (>60 ml/min/1.73 sqM) Total Bilirubin 0.6 (0.2-1.3) mg/dL AST 78 H (14-36) U/L Total Protein 7.1 (6.3-8.2) g/dL Albumin 3.7 (3.5-5.0) g/dL Urine Color Urine Appearance (Clear) Urine pH (5.0-8.0) Ur Specific [place] (1.001-1.035) Urine Protein (Negative) Urine Glucose (UA) (Negative) Urine Ketones (Negative) Urine Blood (Negative) Urine Nitrite (Negative) Urine Bilirubin (Negative) Urine Urobilinogen (<2.0) mg/dL Ur Leukocyte Esterase (Negative) Urine RBC (0-5) /hpf Urine WBC (0-5) /hpf Ur Squamous Epith Cells (0-4) /hpf Urine Bacteria (None) /hpf Urine Mucus (None) /hpf Urine HCG, Qual (Not Detectd) Disposition Clinical Impression: Abdominal pain Disposition: HOME SELF-CARE Condition: Stable Instructions (If sedation given, give patient instructions): Abdominal Pain (ED ) Additional Instructions: Please return to the Emergency Department if symptoms worsen or any other concerns. Is patient prescribed a controlled substance at d/c from ED?: No Referrals: Jaime Stanford Jr, DO [Primary Care Provider] - 1-2 days Time of Disposition: 23:11
[2018-05-24 20:45] LABS: Appearance,Urine Clear (Clear); Bilirubin,Urine Negative (Negative); Blood,Urine Negative (Negative); Color,Urine Yellow; Glucose,Urine (UA) Negative (Negative); Ketones,Urine Negative (Negative); Leukocyte Esterase,Urine Trace (Negative); Nitrite,Urine Negative (Negative); Protein,Urine Negative (Negative); Specific Gravity,Urine 1.011 (1.001-1.035)
[2018-05-24 20:46] LABS: Bacteria,Urine Rare /hpf; Mucus,Urine Rare /hpf; RBC,Urine <1 /hpf (0-5); Squamous Epithelial Cell,Urine 1 /hpf (0-4); WBC,Urine 2 /hpf (0-5)
--- NOTE | 2018-05-24 21:42 | XR ---
EXAMINATION TYPE: XR KUB DATE OF EXAM: 05/24/2018 COMPARISON: 05/18/2017 HISTORY: Sharp right-sided abdominal pain, last BM was yesterday. TECHNIQUE: 2 upright views FINDINGS: The visualized lung bases and pleural spaces are negative. There is no pneumoperitoneum or pneumatosis. There is excessive pancolonic stool, but the bowel gas p attern is otherwise normal. No definite acute soft tissue or skeletal radiographic findings. IMPRESSION: Constipation pattern.
[2018-05-24 21:44] LABS: Basophils % (A) 1 %; Eosinophils # (A) 0.1 k/uL (0-0.7); Eosinophils % (A) 2 %; HCT 42.2 % (34.0-46.0); HGB 14.5 gm/dL (11.4-16.0); Lymphocytes # (A) 2.9 k/uL (1.0-4.8); Lymphocytes % (A) 39 %; MCH 32.3 pg (25.0-35.0); MCHC 34.3 g/dL (31.0-37.0); MCV 94.1 fL (80.0-100.0); Mean Platelet Volume 7.4; Monocytes # (A) 0.3 k/uL (0-1.0); Monocytes % (A) 5 %; Neutrophils % (A) 54 %; Platelet Count 160 k/uL (150-450); RBC 4.49 m/uL (3.80-5.40); RDW 13.6 % (11.5-15.5); WBC 7.4 k/uL (3.8-10.6)
--- NOTE | 2018-05-24 21:47 | US ---
EXAMINATION TYPE: US transvaginal DATE OF EXAM: 05/24/2018 COMPARISON: NONE CLINICAL HISTORY: Pain. Pain TECHNIQUE: Transvaginal (TV). EXAM MEASUREMENTS: Uterus: 6.6 x 4.0 x 4.2 cm Endometrial Stripe: 0.6 cm Right Ovary: 2.7 x 1.6 x 2.0 cm Left Ovary: 2.2 x 1.2 x 1.7 cm 1. Uterus: Retroflexed wnl 2. Endometrium: wnl 3. Right Ovary: wnl 4. Left Ovary: wnl Spectral, color and waveform doppler imaging shows good arterial and venous flow within the ovaries ; there is no evidence for ovarian torsion. 5. Bilateral Adnexa: wnl 6. Posterior cul-de-sac: Anechoic dependent fluid noted. IMPRESSION: Cul-de-sac fluid noted, mild-plus in its volume, presumably physiologic.
[2018-05-24 22:47] LABS: AST 78 U/L (14-36); Albumin 3.7 g/dL (3.5-5.0); Blood Urea Nitrogen 9 mg/dL (7-17); Carbon Dioxide 17 mmol/L (22-30); Total Bilirubin 0.6 mg/dL (0.2-1.3); Total Protein 7.1 g/dL (6.3-8.2)
[2018-05-24 23:21] VITALS: BP 125/97; PULSE 76; TEMP 98.3
== END 2018-05-24 23:21 | disposition home or self-care (01) ==
LOC: EC 19:07
DX: R10.9 Unspecified abdominal pain (principal); J45.909 Unspecified asthma, uncomplicated; K21.9 Gastro-esophageal reflux disease without esophagitis; Z88.0 Allergy status to penicillin; Z88.2 Allergy status to sulfonamides; Z88.5 Allergy status to narcotic agent; Z88.6 Allergy status to analgesic agent; Z88.8 Allergy status to other drugs, medicaments and biological substances; Z91.018 Allergy to other foods; Z91.038 Other insect allergy status; Z91.040 Latex allergy status; Z79.899 Other long term (current) drug therapy; Z86.69 Personal history of other diseases of the nervous system and sense organs; Z87.19 Personal history of other diseases of the digestive system; Z87.42 Personal history of other diseases of the female genital tract; Z98.890 Other specified postprocedural states
CPT/HCPCS: 99284; 96374; 96361 ×2; 36415; 80053; 83690; 85025; 81001; 81025; 74018; 93975; 76830; J2405

== ENCOUNTER 2018-06-13 18:04 | Emergency (ER) | payer OTHER ==
[2018-06-13 18:18] VITALS: BP 121/87; PULSE 77; RESP 18; TEMP 98.2
--- NOTE | 2018-06-13 18:52 | XR ---
EXAMINATION TYPE: XR hand complete RT DATE OF EXAM: 06/13/2018 CLINICAL HISTORY: Pain after punching injury. TECHNIQUE: Frontal, lateral and oblique images of the right hand are obtained. COMPARISON: Right hand x-ray November 18, 2017 FINDINGS: There is no acute fracture/dislocation evident in the right hand. The joint spaces in the right hand appear within normal limits. The overlying soft tissue appears unremarkable. IMPRESSION: There is no acute fracture or dislocation in the right hand.
--- NOTE | 2018-06-13 18:52 | XR ---
EXAMINATION TYPE: XR forearm RT DATE OF EXAM: 06/13/2018 CLINICAL HISTORY: Pain after punching injury. TECHNIQUE: Two views of the right forearm are obtained. COMPARISON: Right forearm x-ray November 18, 2017. FINDINGS: There is no acute fracture or dislocation seen in the right radius or ulna. The right elb ow and wrist joints appear within normal limits. The overlying soft tissue appears within normal mathew its. IMPRESSION: There is no acute fracture or dislocation seen in the right radius or ulna. No significa nt change from prior.
--- NOTE | 2018-06-13 19:10 | ED ---
General Adult HPI - General Chief complaint: Extremity Injury, Upper Stated complaint: Hand injury Time Seen by Provider: 06/13/18 18:19 Source: patient, RN notes reviewed Mode of arrival: ambulatory Limitations: no limitations - History of Present Illness Initial comments: 27 year old female presents to the emergency department for a chief complaint of right hand and wrist pain. Patient states this occurred yesterday. Patient punched a wall after she became frustrated. Patient states her swelling noted. Patient did take Motrin which has helped. She denies any other injuries. Patient has no other complaints at this time including shortness of breath, chest pain, abdominal pain, nausea or vomiting, headache, or visual changes. - Related Data Home Medications Medication Instructions Recorded Confirmed tiZANidine HCL [Zanaflex] 4 mg PO BID PRN 04/16/16 05/24/18 Omeprazole [PriLOSEC] 40 mg PO HS 07/29/16 05/24/18 Topiramate [Topamax] 50 mg PO HS 04/22/17 05/24/18 QUEtiapine FUMARATE [SEROquel] 400 mg PO HS 04/29/18 05/24/18 Albuterol Inhaler [Ventolin Hfa 2 puff INHALATION RT-Q6H PRN 05/24/18 05/24/18 Inhaler] Propranolol HCl 20 mg PO BID 05/24/18 05/24/18 Vortioxetine Hydrobromide 5 mg PO DAILY 05/24/18 05/24/18 [Trintellix] Allergies Allergy/AdvReac Type Severity Reaction Status Date / Time haloperidol [From Haldol] Allergy Severe QUIT Verified 06/13/18 18:15 BREATHING haloperidol lactate Allergy Severe QUIT Verified 06/13/18 18:15 [From Haldol] BREATHING latex Allergy Severe RASH-THROAT Verified 06/13/18 18:15 CLOSES promethazine HCl Allergy Severe Nausea & Verified 06/13/18 18:15 [From Phenergan] Vomiting amoxicillin Allergy Nausea & Verified 06/13/18 18:15 Vomiting bee pollen Allergy Unknown Verified 06/13/18 18:15 ketorolac tromethamine Allergy Nausea & Verified 06/13/18 18:15 [From Toradol] Vomiting prednisone Allergy THROAT Verified 06/13/18 18:15 SWELLS spider venom Allergy Swelling Verified 06/13/18 18:15 Sulfa (Sulfonamide Allergy THROAT Verified 06/13/18 18:15 Antibiotics) SWELLS codeine phosphate AdvReac Nausea & Verified 06/13/18 18:15 [From Tylenol-Codeine #3] Vomiting ANTS Allergy Unknown Uncoded 05/24/18 19:31 WASP Allergy Unknown Uncoded 05/24/18 19:31 Review of Systems ROS Statement: Those systems with pertinent positive or pertinent negative responses have been documented in the HPI. ROS Other: All systems not noted in ROS Statement are negative. Past Medical History Past Medical History: Asthma, GERD/Reflux Additional Past Medical History / Comment(s): migraines, constipation/diarrhea, degenerative disk disease, endometriosis History of Any Multi-Drug Resistant Organisms: None Reported Past Surgical History: Orthopedic Surgery Additional Past Surgical History / Comment(s): laparoscopc surgery for endometriosis, cyst removed from left foot, EGD Past Anesthesia/Blood Transfusion Reactions: Previous Problems w/ Anesthesia Additional Past Anesthesia/Blood Transfusion Reaction / Comment(s): hard to wake up for 48-72 hours after laparoscopic surgery-was in hosp. for 3 days Past Psychological History: PTSD Smoking Status: Never smoker Past Alcohol Use History: None Reported Past Drug Use History: None Reported - Past Family History Mother Family Medical History: No Reported History Additional Family Medical History / Comment(s): hx migraines Father Family Medical History: Coronary Artery Disease (CAD), Hypertension Additional Family Medical History / Comment(s): ddd, alcoholism & drug use General Exam Limitations: no limitations General appearance: alert, in no apparent distress Head exam: Present: atraumatic, normocephalic, normal inspection Eye exam: Present: normal appearance, PERRL, EOMI. Absent: scleral icterus, conjunctival injection, periorbital swelling ENT exam: Present: normal exam, mucous membranes moist Neck exam: Present: normal inspection, full ROM. Absent: tenderness, meningismus, lymphadenopathy Respiratory exam: Present: normal lung sounds bilaterally. Absent: respiratory distress, wheezes, rales, rhonchi, stridor Cardiovascular Exam: Present: regular rate, normal rhythm, normal heart sounds. Absent: systolic murmur, diastolic murmur, rubs, gallop, clicks Extremities exam: Present: tenderness (Tenderness noted over the right third dorsal metacarpal, no wrist or scaphoid tenderness.), normal capillary refill ( Capillary refill less than 2 seconds, radial pulse 2+.), joint swelling ( Minimal edema noted over the right third dorsal metacarpal), other (Sensation intact in the right upper extremity. No abrasions or lacerations.). Absent: full ROM (Patient has about 45 flexion of all digits in the right hand with extension to neutral position. Full range motion of the right wrist.) Course Vital Signs 06/13/18 18:15 Temperature 98.2 F Pulse Rate 77 Respiratory 18 Rate Blood Pressure 121/87 O2 Sat by Pulse 97 Oximetry Medical Decision Making - Medical Decision Making 27-year-old female presents to the emergency department for right hand pain after punching a wall. Patient does have decent range of motion with only minimal swelling noted to the right dorsal third metacarpal. No scaphoid tenderness. No wrist tenderness. X rays of the right hand and forearm are negative. Patient was [place] wrapped and educated on rice therapy as well as Motrin and Tylenol for pain. Will follow up with primary care in the next 1-2 days. Educated that she may need repeat x-rays in 7-10 days if symptoms do not resolve. Disposition Clinical Impression: Hand pain, right Disposition: HOME SELF-CARE Condition: Good Instructions (If sedation given, give patient instructions): Hand Sprain (ED) Additional Instructions: Please take Motrin and Tylenol for pain. Please rest ice and elevate the right hand. Follow-up with primary care in 1-2 days. If symptoms do not resolve in 7 -10 days he may need repeat x-rays. Return to the emergency department if you have any worsening symptoms. Is patient prescribed a controlled substance at d/c from ED?: No Referrals: aJime Stanford Jr, [Primary Care Provider] - 1-2 days Time of Disposition: 19:09
== END 2018-06-13 19:19 | disposition home or self-care (01) ==
LOC: EC 18:04
DX: M79.641 Pain in right hand (principal); J45.909 Unspecified asthma, uncomplicated; K21.9 Gastro-esophageal reflux disease without esophagitis; G43.909 Migraine, unspecified, not intractable, without status migrainosus; F43.10 Post-traumatic stress disorder, unspecified; Z79.899 Other long term (current) drug therapy; Z88.8 Allergy status to other drugs, medicaments and biological substances; Z91.040 Latex allergy status; Z88.0 Allergy status to penicillin; Z91.048 Other nonmedicinal substance allergy status; Z88.6 Allergy status to analgesic agent; Z91.038 Other insect allergy status; Z88.2 Allergy status to sulfonamides; Z88.5 Allergy status to narcotic agent; W22.01XA Walked into wall, initial encounter; Y92.009 Unspecified place in unspecified non-institutional (private) residence as the place of occurrence of the external cause
CPT/HCPCS: 99283

== ENCOUNTER → 2018-06-20 | Outpatient (CLI) | payer OTHER ==
--- NOTE | 2018-06-20 14:34 | XR ---
Right hand HISTORY: Trauma and pain 3 views of the right hand Bone mineralization, joint spaces and alignment are maintained. IMPRESSION: No fracture or dislocation.
--- NOTE | 2018-06-20 14:35 | XR ---
Right forearm HISTORY: Trauma and pain 2 views of the right forearm Bone mineralization, joint spaces and alignment are maintained. IMPRESSION: No fracture or dislocation.
== END | disposition home or self-care (01) ==
LOC: RADXRMAIN 11:51
PROVIDERS: ATTEND Family Medicine
DX: M79.641 Pain in right hand (principal); M79.631 Pain in right forearm; S69.91XA Unspecified injury of right wrist, hand and finger(s), initial encounter

== ENCOUNTER → 2018-08-15 | Outpatient (CLI) | payer OTHER ==
--- NOTE | 2018-08-15 15:04 | US ---
EXAMINATION TYPE: US transvaginal DATE OF EXAM: 08/15/2018 COMPARISON: NONE CLINICAL HISTORY: R10.2 Pelvic and perineal pain. Patient states having pain and hx of cysts. TECHNIQUE: Transvaginal (TV). Date of LMP: 07/11/2018, EXAM MEASUREMENTS: Uterus: 6.4 x 4.9 x 4.1 cm Endometrial Stripe: 0.7 cm Right Ovary: 2.3 x 2.1 x 1.5 cm Left Ovary: 2.2 x 1.3 x 1.8 cm 1. Uterus: Retroverted wnl 2. Endometrium: wnl 3. Right Ovary: follicles seen 4. Left Ovary: follicles seen. Small cystic appearing lesion adjacent to ovary - 0.7 x 0.7 x 0.6 cm 5. Bilateral Adnexa: wnl 6. Posterior cul-de-sac: no free fluid Cervix- nabothian cyst IMPRESSION: 1 small ovarian follicles noted bilaterally.
== END | disposition home or self-care (01) ==
LOC: RADUSWWP 14:08
PROVIDERS: ATTEND Obstetrics & Gynecology
DX: R10.2 Pelvic and perineal pain (principal)
CPT/HCPCS: 76830

== ENCOUNTER 2018-08-27 17:17 | Emergency (ER) | payer OTHER ==
[2018-08-27 17:25] VITALS: RESP 18
[2018-08-27] MEDS ORDERED: METOCLOPRAMIDE 5 MG/ML 2 ML VIAL IVP STA (17:42)
[2018-08-27] MEDS ORDERED: diphenhydrAMINE 50 MG/ML 1 ML VIAL IVP STA (17:42)
[2018-08-27] MEDS ORDERED: SODIUM CHLORIDE 0.9% 1,000 ML IV ONE (17:42)
[2018-08-27] MEDS ORDERED: DEXAMETHASONE SOD PHOSPHATE 10 MG/ML 1 ML VIAL IV STA (17:42)
--- NOTE | 2018-08-27 18:00 | ED ---
Headache HPI - General Chief Complaint: Headache Stated Complaint: Headache Time Seen by Provider: 08/27/18 17:28 Mode of arrival: ambulatory Limitations: no limitations - History of Present Illness Initial Comments: 27 year-old female patient presents to the emergency department today for evaluation of migraine headache. Patient states she's had a headache for the last 2 days. She has taken her sumatriptan and Ibuprofen both yesterday and today without relief of symptoms. Patient states she is having some blurred vision and light sensitivity with this. States she has been nauseated but has not vomited. She denies any numbness, tingling, or weakness to extremities. Denies any dizziness. She denies any chance of . She denies any new symptoms with this, states that her current symptoms are consistent with her usual migraine pattern. Patient denies any recent rash, shortness breath, chest pain, abdominal pain, diarrhea, constipation, back pain, hematuria, dysuria, urinary urgency, urinary frequency, or any other complaints. - Related Data Home Medications Medication Instructions Recorded Confirmed tiZANidine HCL [Zanaflex] 4 mg PO BID PRN 04/16/16 05/24/18 Omeprazole [PriLOSEC] 40 mg PO HS 07/29/16 05/24/18 Topiramate [Topamax] 50 mg PO HS 04/22/17 05/24/18 QUEtiapine FUMARATE [SEROquel] 400 mg PO HS 04/29/18 05/24/18 Albuterol Inhaler [Ventolin Hfa 2 puff INHALATION RT-Q6H PRN 05/24/18 05/24/18 Inhaler] Propranolol HCl 20 mg PO BID 05/24/18 05/24/18 Vortioxetine Hydrobromide 5 mg PO DAILY 05/24/18 05/24/18 [Trintellix] Allergies Allergy/AdvReac Type Severity Reaction Status Date / Time haloperidol [From Haldol] Allergy Severe QUIT Verified 08/27/18 17:26 BREATHING haloperidol lactate Allergy Severe QUIT Verified 08/27/18 17:26 [From Haldol] BREATHING latex Allergy Severe RASH-THROAT Verified 08/27/18 17:26 CLOSES promethazine HCl Allergy Severe Nausea & Verified 08/27/18 17:26 [From Phenergan] Vomiting amoxicillin Allergy Nausea & Verified 08/27/18 17:26 Vomiting bee pollen Allergy Unknown Verified 08/27/18 17:26 ketorolac tromethamine Allergy Nausea & Verified 08/27/18 17:26 [From Toradol] Vomiting prednisone Allergy THROAT Verified 08/27/18 17:26 SWELLS spider venom Allergy Swelling Verified 08/27/18 17:26 Sulfa (Sulfonamide Allergy THROAT Verified 08/27/18 17:26 Antibiotics) SWELLS codeine phosphate AdvReac Nausea & Verified 08/27/18 17:26 [From Tylenol-Codeine #3] Vomiting ANTS Allergy Unknown Uncoded 08/27/18 17:26 WASP Allergy Unknown Uncoded 08/27/18 17:26 Review of Systems ROS Statement: Those systems with pertinent positive or pertinent negative responses have been documented in the HPI. ROS Other: All systems not noted in ROS Statement are negative. Past Medical History Past Medical History: Asthma, GERD/Reflux Additional Past Medical History / Comment(s): migraines, constipation/diarrhea, degenerative disk disease, endometriosis History of Any Multi-Drug Resistant Organisms: None Reported Past Surgical History: Orthopedic Surgery Additional Past Surgical History / Comment(s): laparoscopc surgery for endometriosis, cyst removed from left foot, EGD Past Anesthesia/Blood Transfusion Reactions: Previous Problems w/ Anesthesia Additional Past Anesthesia/Blood Transfusion Reaction / Comment(s): hard to wake up for 48-72 hours after laparoscopic surgery-was in hosp. for 3 days Past Psychological History: PTSD Smoking Status: Never smoker Past Alcohol Use History: None Reported Past Drug Use History: None Reported - Past Family History Mother Family Medical History: No Reported History Additional Family Medical History / Comment(s): hx migraines Father Family Medical History: Coronary Artery Disease (CAD), Hypertension Additional Family Medical History / Comment(s): ddd, alcoholism & drug use General Exam Limitations: no limitations General appearance: alert, in no apparent distress, other (Physical well- developed, well-nourished adult female patient in no acute distress. Vital signs upon presentation are temperature 98.8F, pulse 99, respirations 18, blood pressure 123/90, pulse ox 97% on room air.) Eye exam: Present: normal appearance, PERRL, EOMI. Absent: scleral icterus, conjunctival injection, nystagmus, periorbital swelling ENT exam: Present: normal exam, normal oropharynx, mucous membranes moist, TM's normal bilaterally Respiratory exam: Present: normal lung sounds bilaterally. Absent: respiratory distress, wheezes, rales, rhonchi, stridor Cardiovascular Exam: Present: regular rate, normal rhythm, normal heart sounds. Absent: systolic murmur, diastolic murmur, rubs, gallop, clicks Neurological exam: Present: alert, oriented X3, CN II-XII intact, other (Strength in all 4 extremities is 5/5.) Psychiatric exam: Present: normal affect, normal mood Skin exam: Present: warm, dry, intact, normal color. Absent: rash Course Vital Signs 08/27/18 08/27/18 17:23 19:12 Temperature 98.8 F 97.0 F L Pulse Rate 99 79 Respiratory 18 18 Rate Blood Pressure 123/90 137/95 O2 Sat by Pulse 97 98 Oximetry Medical Decision Making - Medical Decision Making 27 year-old female patient presents to the emergency department today for evaluation of migraine headache. Patient does have a history of migraines and states her symptoms are consistent with her usual migraine pattern. Physical examination is unremarkable. She is neurologically intact with no focal deficits. Patient was given IM medications here in the emergency department. Upon reevaluation she does report improvement of symptoms. She is currently rating her pain at a 4 out of 10 on the pain scale. States that she does feel well enough to be discharged home. She is instructed to follow-up with her primary care physician for recheck in 1-2 days. Return parameters were discusse d in detail. She verbalizes understanding and agrees this plan. - Lab Data Lab Results 08/27/18 Range/Units 18:09 POC Glucose (mg/dL) 156 H (75-99) mg/dL POC Glu Psychiatric Np ID Gianni Hurtado Disposition Clinical Impression: Migraine headache Disposition: HOME SELF-CARE Condition: Good Instructions (If sedation given, give patient instructions): Migraine Headache (ED) Additional Instructions: Increase fluids. Follow up with your primary care physician for recheck in 1-2 days. Return to the emergency department immediately for any new, worsening, or concerning symptoms. Is patient prescribed a controlled substance at d/c from ED?: No Referrals: Jaime Stanford Jr, DO [Primary Care Provider] - 1-2 days Time of Disposition: 19:56
[2018-08-27 18:11] LABS: Glucose,Whole Blood 156 mg/dL (75-99)
[2018-08-27] MEDS ORDERED: diphenhydrAMINE 50 MG/ML 1 ML VIAL IM STA (18:13)
[2018-08-27] MEDS ORDERED: METOCLOPRAMIDE 5 MG/ML 2 ML VIAL IM STA (18:13)
[2018-08-27] MEDS ORDERED: DEXAMETHASONE SOD PHOSPHATE 10 MG/ML 1 ML VIAL IM STA (18:13)
[2018-08-27 19:15] VITALS: BP 137/95; PULSE 79; TEMP 97
== END 2018-08-27 20:04 | disposition home or self-care (01) ==
LOC: EC 17:17
DX: G43.909 Migraine, unspecified, not intractable, without status migrainosus (principal); J45.909 Unspecified asthma, uncomplicated; K21.9 Gastro-esophageal reflux disease without esophagitis; Z88.0 Allergy status to penicillin; Z88.2 Allergy status to sulfonamides; Z88.5 Allergy status to narcotic agent; Z88.6 Allergy status to analgesic agent; Z88.8 Allergy status to other drugs, medicaments and biological substances; Z91.018 Allergy to other foods; Z91.038 Other insect allergy status; Z91.040 Latex allergy status; Z79.899 Other long term (current) drug therapy; Z82.0 Family history of epilepsy and other diseases of the nervous system; Z53.8 Procedure and treatment not carried out for other reasons
CPT/HCPCS: 36415; 99283; 96372 ×3; J1200; J1100; J2765

== ENCOUNTER → 2018-09-02 | Outpatient (CLI) | payer OTHER | END | disposition home or self-care (01) | LOC: LABWHC1 13:55 | PROVIDERS: ATTEND Nurse Practitioner Family | DX: R73.9 Hyperglycemia, unspecified (principal); Z83.3 Family history of diabetes mellitus | CPT/HCPCS: 36415; 82947; 83036 ==

== ENCOUNTER 2018-09-05 23:49 | Emergency (ER) | payer OTHER ==
[2018-09-06 00:25] VITALS: TEMP 98.7
--- NOTE | 2018-09-06 01:06 | ED ---
General Adult HPI - General Chief complaint: Skin/Abscess/Foreign Body Stated complaint: Rash Time Seen by Provider: 09/06/18 00:29 Source: patient, family, RN notes reviewed, old records reviewed Mode of arrival: ambulatory Limitations: no limitations - History of Present Illness Initial comments: 27-year-old female patient with no pertinent past medical history presents ED for intertrigo folds of skin between needle aspect of thigh and adnexal region bilaterally. Patient was this has been ongoing for approximately 3 days and is mildly itchy. Patient states that she has tried Neosporin Triple Antibiotic ointment that has now improved. He states that she cannot be because she does not have sex with men. Patient denies any other complaints at this time. Systemic: Pt denies fatigue, myalgia, fever/chills, rash. Pt denies weakness, night sweats, weight loss. Neuro: Pt denies headache, visual disturbances, syncope or pre-syncope. HEENT: Pt denies ocular discharge or irritation, otalgia, rhinorrhea, pharyngitis or notable lymphadenopathy. Cardiopulmonary: Pt denies chest pain, SOB, heart palpitations, dyspnea on exertion. Abdominal/GI: Pt denies abdominal pain, n/v/d. : Pt denies dysuria, burning w/ urination, frequency/urgency. Denies new onset urinary or bowel incontinence. MSK: Pt denies myalgia, loss of strength or function in extremities. Neuro: Pt denies new onset weakness, paresthesias. - Related Data Home Medications Medication Instructions Recorded Confirmed tiZANidine HCL [Zanaflex] 4 mg PO BID PRN 04/16/16 05/24/18 Omeprazole [PriLOSEC] 40 mg PO HS 07/29/16 05/24/18 Topiramate [Topamax] 50 mg PO HS 04/22/17 05/24/18 QUEtiapine FUMARATE [SEROquel] 400 mg PO HS 04/29/18 05/24/18 Albuterol Inhaler [Ventolin Hfa 2 puff INHALATION RT-Q6H PRN 05/24/18 05/24/18 Inhaler] Propranolol HCl 20 mg PO BID 05/24/18 05/24/18 Vortioxetine Hydrobromide 5 mg PO DAILY 05/24/18 05/24/18 [Trintellix] Previous Rx's Medication Instructions Recorded Clotrimazole Cream [Lotrimin Cream] 1 applic TOPICAL BID 7 Days #1 tube 09/06/18 Allergies Allergy/AdvReac Type Severity Reaction Status Date / Time haloperidol [From Haldol] Allergy Severe QUIT Verified 09/06/18 00:25 BREATHING haloperidol lactate Allergy Severe QUIT Verified 09/06/18 00:25 [From Haldol] BREATHING latex Allergy Severe RASH-THROAT Verified 09/06/18 00:25 CLOSES promethazine HCl Allergy Severe Nausea & Verified 09/06/18 00:25 [From Phenergan] Vomiting amoxicillin Allergy Nausea & Verified 09/06/18 00:25 Vomiting bee pollen Allergy Unknown Verified 09/06/18 00:25 ketorolac tromethamine Allergy Nausea & Verified 09/06/18 00:25 [From Toradol] Vomiting prednisone Allergy THROAT Verified 09/06/18 00:25 SWELLS spider venom Allergy Swelling Verified 09/06/18 00:25 Sulfa (Sulfonamide Allergy THROAT Verified 09/06/18 00:25 Antibiotics) SWELLS codeine phosphate AdvReac Nausea & Verified 09/06/18 00:25 [From Tylenol-Codeine #3] Vomiting ANTS Allergy Unknown Uncoded 09/06/18 00:25 WASP Allergy Unknown Uncoded 09/06/18 00:25 Review of Systems ROS Statement: Those systems with pertinent positive or pertinent negative responses have been documented in the HPI. ROS Other: All systems not noted in ROS Statement are negative. Past Medical History Past Medical History: Asthma, GERD/Reflux Additional Past Medical History / Comment(s): migraines, constipation/diarrhea, degenerative disk disease, endometriosis History of Any Multi-Drug Resistant Organisms: None Reported Past Surgical History: Orthopedic Surgery Additional Past Surgical History / Comment(s): laparoscopc surgery for endometriosis, cyst removed from left foot, EGD Past Anesthesia/Blood Transfusion Reactions: Previous Problems w/ Anesthesia Additional Past Anesthesia/Blood Transfusion Reaction / Comment(s): hard to wake up for 48-72 hours after laparoscopic surgery-was in hosp. for 3 days Past Psychological History: PTSD Smoking Status: Never smoker Past Alcohol Use History: None Reported Past Drug Use History: None Reported - Past Family History Mother Family Medical History: No Reported History Additional Family Medical History / Comment(s): hx migraines Father Family Medical History: Coronary Artery Disease (CAD), Hypertension Additional Family Medical History / Comment(s): ddd, alcoholism & drug use General Exam - General Exam Comments Initial Comments: Constitutional: NAD, AOX3, Pt has pleasant affect. HEENT: NC/AT, trachea midline, neck supple, no lymphadenopathy. Posterior pharynx non erythematous, without exudates. External ears appear normal, without discharge. Mucous membranes moist. Eyes PERRLA, EOM intact. There is no scleral icterus. No pallor noted. Cardiopulmonary: RRR, no murmurs, rubs or gallops, no JVD noted. Lungs CTAB in anterior and posterior arroyo. No peripheral edema. Abdominal exam: Abdomen soft and non-distended. Abdomen non-tender to palpation in all 4 quadrants. Bowel sounds active in LLQ. No hepatosplenomegaly. No ecchymosis Neuro: CN II-XII grossly intact. No nuchal rigidity. MSK: No posterior calf tenderness bilaterally, homans sign negative bilaterally. Posterior tibialis and radial pulse +2 bilaterally. Sensation intact in upper and lower extremities. Full active ROM in upper and lower extremities, 5/5 stregnth. Derm: Intertrigo noted bilateral skin folds or medial thighs be adnexal region. Erythematous. No pustules or ulceration. No streaking. No vaginal involvement. Limitations: no limitations Course Vital Signs 09/06/18 00:21 Temperature 98.7 F Pulse Rate 102 H Respiratory 20 Rate Blood Pressure 77/50 O2 Sat by Pulse 96 Oximetry Medical Decision Making - Medical Decision Making 27-year-old female patient with no pertinent past medical history presents ED for intertrigo folds of skin between needle aspect of thigh and adnexal region bilaterally. Patient was this has been ongoing for approximately 3 days and is mildly itchy. Patient states that she has tried Neosporin Triple Antibiotic ointment that has now improved. He states that she cannot be because she does not have sex with men. Patient denies any other complaints at this time. Pt initially displayed hypotension. Repeat vital signs taken shortly after with within acceptable limits. Initial set likely incorrect. Physical exam displayed: Intertrigo noted bilateral skin folds or medial thighs be adnexal region. Erythematous. No pustules or ulceration. No streaking. No vaginal involvement. Patient will be treated with Lotrisone cream. Patient will follow up with primary care provider in 1-2 days. Patient return to ER if condition w orsens in anyway. Case discussed with Dr. Turner. Disposition Clinical Impression: Intertrigo, Rash Disposition: HOME SELF-CARE Condition: Stable Instructions (If sedation given, give patient instructions): Acute Rash (ED), Skin Yeast Infection (ED) Additional Instructions: Patient to adhere to previously discussed treatment plan and will take medication(s) as directed. Patient to follow up with PCP in 1-2 days. Patient to return to ED if symptoms do not improve. Use medication as directed. Follow-up with primary care provider in 1-2 days. Return to ED if condition worsens. Prescriptions: Clotrimazole Cream [Lotrimin Cream] 1 applic TOPICAL BID 7 Days #1 tube Is patient prescribed a controlled substance at d/c from ED?: No Referrals: Jaime Stanford Jr, [Primary Care Provider] - 1-2 days
[2018-09-06 01:13] VITALS: BP 118/53; PULSE 96; RESP 19
== END 2018-09-06 01:22 | disposition home or self-care (01) ==
LOC: EC 23:49
DX: L30.4 Erythema intertrigo (principal); K21.9 Gastro-esophageal reflux disease without esophagitis; J45.909 Unspecified asthma, uncomplicated; Z79.899 Other long term (current) drug therapy; Z88.8 Allergy status to other drugs, medicaments and biological substances; Z88.0 Allergy status to penicillin; Z91.040 Latex allergy status; Z88.2 Allergy status to sulfonamides; Z91.030 Bee allergy status; Z91.038 Other insect allergy status; Z88.5 Allergy status to narcotic agent; Z88.6 Allergy status to analgesic agent
CPT/HCPCS: 99283

== ENCOUNTER 2018-09-17 18:57 | Emergency (ER) | payer OTHER ==
[2018-09-17 19:18] VITALS: TEMP 99.4
[2018-09-17] MEDS ORDERED: SODIUM CHLORIDE 0.9% 1,000 ML IV STA (19:25)
[2018-09-17] MEDS ORDERED: IPRATROPIUM-ALBUTEROL 3 ML NEB INHALATION STA (19:26)
--- NOTE | 2018-09-17 20:18 | XR ---
EXAMINATION TYPE: XR chest 2V DATE OF EXAM: 09/17/2018 COMPARISON: 10/24/2015 HISTORY: Cough TECHNIQUE: Frontal and lateral views of the chest are obtained. FINDINGS: Heart and mediastinum are normal. Lungs are clear. Diaphragm is normal. Bony thorax is nor mal. There are chest leads. IMPRESSION: Normal chest. No change.
[2018-09-17 20:29] LABS: ALT 44 U/L (9-52); AST 48 U/L (14-36); African American GFR (CKD) >90 (>60 ml/min/1.73 sqM); Albumin 4.7 g/dL (3.5-5.0); Alkaline Phosphatase 75 U/L (38-126); Anion Gap 13 mmol/L; Blood Urea Nitrogen 18 mg/dL (7-17); Calcium 10.6 mg/dL (8.4-10.2); Carbon Dioxide 18 mmol/L (22-30); Chloride 107 mmol/L (98-107); Glucose 223 mg/dL (74-99); Magnesium 1.9 mg/dL (1.6-2.3); Potassium 4.4 mmol/L (3.5-5.1); Sodium 138 mmol/L (137-145); Total Bilirubin 0.6 mg/dL (0.2-1.3); Total Protein 8.1 g/dL (6.3-8.2)
--- NOTE | 2018-09-17 20:31 | ED ---
General Adult HPI - General Chief complaint: Upper Respiratory Infection Stated complaint: CHARLEEN Time Seen by Provider: 09/17/18 19:21 Source: patient, family, RN notes reviewed, old records reviewed Mode of arrival: ambulatory Limitations: no limitations - History of Present Illness Initial comments: 27 old female patient past medical history of asthma, endometriosis presents to ED with 3 days of cough, shortness of breath and chest pressure. Patient states that this does feel similar that is what she has had in the past. Patient has been using breathing treatments at home without improvement. Patient states that she feels as if she has a pressure in her chest. This is also ongoing for 3 days. Patient denies any other complaints. Denies abdominal pain, nausea vomiting or diarrhea. Patient states that she cannot be patient because she does not have sex with men. Systemic: Pt denies fatigue, fever/chills, rash. Pt denies weakness, night sweats, weight loss. Neuro: Pt denies headache, visual disturbances, syncope or pre-syncope. HEENT: Pt denies ocular discharge or irritation, otalgia, rhinorrhea, pharyngitis or notable lymphadenopathy. Cardiopulmonary: Pt denies heart palpitations, dyspnea on exertion. Abdominal/GI: Pt denies abdominal pain, n/v/d. : Pt denies dysuria, burning w/ urination, frequency/urgency. Denies new onset urinary or bowel incontinence. MSK: Pt denies myalgia, loss of strength or function in extremities. Neuro: Pt denies new onset weakness, paresthesias. - Related Data Home Medications Medication Instructions Recorded Confirmed tiZANidine HCL [Zanaflex] 4 mg PO BID PRN 04/16/16 05/24/18 Omeprazole [PriLOSEC] 40 mg PO HS 07/29/16 05/24/18 Topiramate [Topamax] 50 mg PO HS 04/22/17 05/24/18 QUEtiapine FUMARATE [SEROquel] 400 mg PO HS 04/29/18 05/24/18 Albuterol Inhaler [Ventolin Hfa 2 puff INHALATION RT-Q6H PRN 05/24/18 05/24/18 Inhaler] Propranolol HCl 20 mg PO BID 05/24/18 05/24/18 Vortioxetine Hydrobromide 5 mg PO DAILY 05/24/18 05/24/18 [Trintellix] Previous Rx's Medication Instructions Recorded Clotrimazole Cream [Lotrimin Cream] 1 applic TOPICAL BID 7 Days #1 tube 09/06/18 Albuterol Inhaler [Ventolin Hfa 1 - 2 puff INHALATION Q4-6H PRN #1 09/17/18 Inhaler] inhaler Albuterol Nebulized [Ventolin 2.5 mg INHALATION Q4H PRN 10 Days 09/17/18 Nebulized] nebu Allergies Allergy/AdvReac Type Severity Reaction Status Date / Time haloperidol [From Haldol] Allergy Severe QUIT Verified 09/17/18 19:18 BREATHING haloperidol lactate Allergy Severe QUIT Verified 09/17/18 19:18 [From Haldol] BREATHING latex Allergy Severe RASH-THROAT Verified 09/17/18 19:18 CLOSES promethazine HCl Allergy Severe Nausea & Verified 09/17/18 19:18 [From Phenergan] Vomiting amoxicillin Allergy Nausea & Verified 09/17/18 19:18 Vomiting bee pollen Allergy Unknown Verified 09/17/18 19:18 ketorolac tromethamine Allergy Nausea & Verified 09/17/18 19:18 [From Toradol] Vomiting prednisone Allergy THROAT Verified 09/17/18 19:18 SWELLS spider venom Allergy Swelling Verified 09/17/18 19:18 Sulfa (Sulfonamide Allergy THROAT Verified 09/17/18 19:18 Antibiotics) SWELLS codeine phosphate AdvReac Nausea & Verified 09/17/18 19:18 [From Tylenol-Codeine #3] Vomiting ANTS Allergy Unknown Uncoded 09/17/18 19:18 WASP Allergy Unknown Uncoded 09/17/18 19:18 Review of Systems ROS Statement: Those systems with pertinent positive or pertinent negative responses have been documented in the HPI. ROS Other: All systems not noted in ROS Statement are negative. Past Medical History Past Medical History: Asthma, GERD/Reflux Additional Past Medical History / Comment(s): migraines, constipation/diarrhea, degenerative disk disease, endometriosis History of Any Multi-Drug Resistant Organisms: None Reported Past Surgical History: Orthopedic Surgery Additional Past Surgical History / Comment(s): laparoscopc surgery for endometriosis, cyst removed from left foot, EGD Past Anesthesia/Blood Transfusion Reactions: Previous Problems w/ Anesthesia Additional Past Anesthesia/Blood Transfusion Reaction / Comment(s): hard to wake up for 48-72 hours after laparoscopic surgery-was in hosp. for 3 days Past Psychological History: PTSD Smoking Status: Never smoker Past Alcohol Use History: None Reported Past Drug Use History: None Reported - Past Family History Mother Family Medical History: No Reported History Additional Family Medical History / Comment(s): hx migraines Father Family Medical History: Coronary Artery Disease (CAD), Hypertension Additional Family Medical History / Comment(s): ddd, alcoholism & drug use General Exam - General Exam Comments Initial Comments: Constitutional: NAD, AOX3, Pt has pleasant affect. HEENT: NC/AT, trachea midline, neck supple, no lymphadenopathy. Posterior pharynx non erythematous, without exudates. External ears appear normal, without discharge. Mucous membranes moist. Eyes PERRLA, EOM intact. There is no scleral icterus. No pallor noted. Cardiopulmonary: RRR, no murmurs, rubs or gallops, no JVD noted. Mild wheezing and posterior lung arroyo, resolved after treatment. No peripheral edema. Abdominal exam: Abdomen soft and non-distended. Abdomen non-tender to palpation in all 4 quadrants. Bowel sounds active in LLQ. No hepatosplenomegaly. No ecchymosis Neuro: CN II-XII grossly intact. No nuchal rigidity. No raccon eyes, no caro sign, no hemotympanum. No cervical spinal tenderness. MSK: No posterior calf tenderness bilaterally, homans sign negative bilaterally. Posterior tibialis and radial pulse +2 bilaterally. Sensation intact in upper and lower extremities. Full active ROM in upper and lower extremities, 5/5 stregnth. Limitations: no limitations Course Vital Signs 09/17/18 09/17/18 09/17/18 19:15 19:50 20:03 Temperature 99.4 F Pulse Rate 108 H 85 88 Respiratory 20 18 18 Rate Blood Pressure 113/81 O2 Sat by Pulse 98 Oximetry 09/17/18 09/17/18 09/17/18 20:05 20:20 20:40 Temperature Pulse Rate 85 87 77 Respiratory 18 18 17 Rate Blood Pressure 149/105 149/105 148/102 O2 Sat by Pulse 99 99 96 Oximetry 09/17/18 21:00 Temperature Pulse Rate 111 H Respiratory 20 Rate Blood Pressure 148/97 O2 Sat by Pulse 98 Oximetry Medical Decision Making - Medical Decision Making 27 old female patient past medical history of asthma, endometriosis presents to ED with 3 days of cough, shortness of breath and chest pressure. Patient states that this does feel similar that is what she has had in the past. Patient has been using breathing treatments at home without improvement. Patient states that she feels as if she has a pressure in her chest. This is also ongoing for 3 days. Patient denies any other complaints. Denies abdominal pain, nausea vomiting or diarrhea. Patient states that she cannot be patient because she does not have sex with men. Patient also stable, afebrile. Physical exam displayed mild wheezing and posterior arroyo which resolved after breathing treatment. No other acute pathology. Laboratory investigations revealed nonspecific CBC. CMP revealed mild hyperglycemia of 223, mildly elevat ed calcium and AST. Coagulation studies noncompressive. D-dimer negative. Troponin negative. EKG not concerning for acute ischemia. Chest x-ray revealed no acute process. Patient diagnosed with bronchitis. Due to ALLERGY patient does not have steroids. Patient discharged with refill for albuterol medication. Patient follow up with primary care provider as scheduled on Wednesday. Patient will return to ER if condition worsens in anyway. Case discussed with Dr. Rossi. - Lab Data Result diagrams: 09/17/18 20:01 09/17/18 20:01 Lab Results 09/17/18 09/17/18 09/17/18 Range/Units 20:01 20:01 20:01 WBC 8.0 (3.8-10.6) k/uL RBC 4.57 (3.80-5.40) m/uL Hgb 14.0 (11.4-16.0) gm/dL Hct 41.1 (34.0-46.0) % MCV 90.0 (80.0-100.0) fL MCH 30.6 (25.0-35.0) pg MCHC 34.0 (31.0-37.0) g/dL RDW 14.7 (11.5-15.5) % Plt Count 215 (150-450) k/uL Neutrophils % 74 % Lymphocytes % 20 % Monocytes % 4 % Eosinophils % 1 % Basophils % 0 % Neutrophils # 6.0 (1.3-7.7) k/uL Lymphocytes # 1.6 (1.0-4.8) k/uL Monocytes # 0.3 (0-1.0) k/uL Eosinophils # 0.0 (0-0.7) k/uL Basophils # 0.0 (0-0.2) k/uL PT 9.7 (9.0-12.0) sec INR 0.9 (<1.2) APTT 21.9 L (22.0-30.0) sec D-Dimer 0.43 (<0.60) mg/L FEU Sodium 138 (137-145) mmol/L Potassium 4.4 (3.5-5.1) mmol/L Chloride 107 (98-107) mmol/L Carbon Dioxide 18 L (22-30) mmol/L Anion Gap 13 mmol/L BUN 18 H (7-17) mg/dL Creatinine 0.73 (0.52-1.04) mg/dL Est GFR (CKD-EPI)AfAm >90 (>60 ml/min/1.73 sqM) Est GFR (CKD-EPI)NonAf >90 (>60 ml/min/1.73 sqM) Glucose 223 H (74-99) mg/dL Calcium 10.6 H (8.4-10.2) mg/dL Magnesium 1.9 (1.6-2.3) mg/dL Total Bilirubin 0.6 (0.2-1.3) mg/dL AST 48 H (14-36) U/L ALT 44 (9-52) U/L Alkaline Phosphatase 75 (38-126) U/L Troponin I (0.000-0.034) ng/mL Total Protein 8.1 (6.3-8.2) g/dL Albumin 4.7 (3.5-5.0) g/dL 09/17/18 Range/Units 20:01 WBC (3.8-10.6) k/uL RBC (3.80-5.40) m/uL Hgb (11.4-16.0) gm/dL Hct (34.0-46.0) % MCV (80.0-100.0) fL MCH (25.0-35.0) pg MCHC (31.0-37.0) g/dL RDW (11.5-15.5) % Plt Count (150-450) k/uL Neutrophils % % Lymphocytes % % Monocytes % % Eosinophils % % Basophils % % Neutrophils # (1.3-7.7) k/uL Lymphocytes # (1.0-4.8) k/uL Monocytes # (0-1.0) k/uL Eosinophils # (0-0.7) k/uL Basophils # (0-0.2) k/uL PT (9.0-12.0) sec INR (<1.2) APTT (22.0-30.0) sec D-Dimer (<0.60) mg/L FEU Sodium (137-145) mmol/L Potassium (3.5-5.1) mmol/L Chloride (98-107) mmol/L Carbon Dioxide (22-30) mmol/L Anion Gap mmol/L BUN (7-17) mg/dL Creatinine (0.52-1.04) mg/dL Est GFR (CKD-EPI)AfAm (>60 ml/min/1.73 sqM) Est GFR (CKD-EPI)NonAf (>60 ml/min/1.73 sqM) Glucose (74-99) mg/dL Calcium (8.4-10.2) mg/dL Magnesium (1.6-2.3) mg/dL Total Bilirubin (0.2-1.3) mg/dL AST (14-36) U/L ALT (9-52) U/L Alkaline Phosphatase (38-126) U/L Troponin I <0.012 (0.000-0.034) ng/mL Total Protein (6.3-8.2) g/dL Albumin (3.5-5.0) g/dL - EKG Data -: EKG Interpreted by Me (and Dr. Rossi) EKG Comments: Ventricular rate 77, painful 140, QRS 82, QT/QTC 380/4:30. NSR with sinus arrhythmia.. Otherwise no EKG. No concern for acute ischemia. Disposition Clinical Impression: Acute bronchitis Disposition: HOME SELF-CARE Condition: Stable Instructions (If sedation given, give patient instructions): Acute Bronchitis (ED) Additional Instructions: Patient to adhere to previously discussed treatment plan and will take medication(s) as directed. Patient to follow up with PCP in 1-2 days. Patient to return to ED if symptoms do not improve. Take medications as directed. Return to ER if condition worsens in any way. Prescriptions: Albuterol Inhaler [Ventolin Hfa Inhaler] 1 - 2 puff INHALATION Q4-6H PRN #1 inhaler PRN Reason: Cough Albuterol Nebulized [Ventolin Nebulized] 2.5 mg INHALATION Q4H PRN 10 Days nebu PRN Reason: Cough Is patient prescribed a controlled substance at d/c from ED?: No Referrals: Jaime Stanford Jr, [Primary Care Provider] - 1-2 days
[2018-09-17 20:32] LABS: Basophils % (A) 0 %; Eosinophils % (A) 1 %; HCT 41.1 % (34.0-46.0); Lymphocytes # (A) 1.6 k/uL (1.0-4.8); Lymphocytes % (A) 20 %; MCH 30.6 pg (25.0-35.0); Mean Platelet Volume 8.4; Monocytes # (A) 0.3 k/uL (0-1.0); Monocytes % (A) 4 %; Neutrophils % (A) 74 %; Platelet Count 215 k/uL (150-450); RBC 4.57 m/uL (3.80-5.40); RDW 14.7 % (11.5-15.5)
[2018-09-17 20:43] LABS: D-Dimer 0.43 mg/L FEU (<0.60); INR 0.9 (<1.2); Prothrombin Time 9.7 sec (9.0-12.0)
[2018-09-17 20:58] LABS: Partial Thromboplastin Time 21.9 sec (22.0-30.0)
[2018-09-17 22:00] VITALS: BP 128/88; PULSE 98; RESP 18
== END 2018-09-17 22:08 | disposition home or self-care (01) ==
LOC: EC 18:57
DX: J20.9 Acute bronchitis, unspecified (principal); R73.9 Hyperglycemia, unspecified; R74.0 Nonspecific elevation of levels of transaminase and lactic acid dehydrogenase [LDH]; E83.52 Hypercalcemia; K21.9 Gastro-esophageal reflux disease without esophagitis; J45.909 Unspecified asthma, uncomplicated; Z79.899 Other long term (current) drug therapy; Z88.8 Allergy status to other drugs, medicaments and biological substances; Z88.0 Allergy status to penicillin; Z91.030 Bee allergy status; Z91.038 Other insect allergy status; Z88.2 Allergy status to sulfonamides; Z88.5 Allergy status to narcotic agent; Z88.6 Allergy status to analgesic agent; Z91.040 Latex allergy status
CPT/HCPCS: 36415; 71046; 80053; 83735; 84484; 85025; 85379; 85610; 85730; 93005; 94640; 96360; 96361; 99285

== ENCOUNTER → 2018-09-19 | Outpatient (CLI) | payer OTHER ==
[2018-09-19 13:13] LABS: African American GFR (CKD) >90 (>60 ml/min/1.73 sqM); Blood Urea Nitrogen 21 mg/dL (7-17)
--- NOTE | 2018-09-19 14:29 | CT ---
EXAMINATION TYPE: CT angio chest DATE OF EXAM: 09/19/2018 COMPARISON: Radiograph 09/17/2018 HISTORY: 27-year-old female Shortness of breath, Cough TECHNIQUE: Contiguous axial scanning of the chest performed with IV Contrast, patient injected with 1 00 ml mL of Isovue 370. Coronal/sagittal MIP reconstructions performed. CT DLP: 515 mGycm Automated exposure control for dose reduction was used. FINDINGS: Normal size without pericardial effusion. No reflux of contrast into the hepatic veins. Aorta normal caliber with bovine configuration to the aortic arch. Satisfactory opacification of the pulmonary arterial system with mild generalized motion artifacts ca using some limitations. No definite pulmonary embolus is identified. No thoracic lymph adenopathy. Evaluation of the lungs shows mild diffuse bronchial wall thickening. In addition, there is some foca l patchy nodular density posterior left midlung and axial images 60 through 63. No other consolidation or pleural effusion. Visualized upper abdomen shows low-attenuation of the hepatic parenchyma with some fatty sparing delvis g the gallbladder fossa. Bones: No osseous destructive process. IMPRESSION: 1. SOME LIMITATION DUE TO MILD RESPIRATORY MOTION ARTIFACTS. NO DEFINITE PULMONARY EMBOLUS. 2. SOME PATCHY AND NODULAR INFILTRATE POSTERIOR LEFT MID LUNG COULD REPRESENT AN EARLY DEVELOPING PNE UMONIA. 3. THERE IS ALSO MILD DIFFUSE BRONCHIAL WALL THICKENING WHICH CAN BE SEEN WITH BRONCHITIS OR ASTHMA. 4. HEPATIC STEATOSIS.
== END | disposition home or self-care (01) ==
LOC: RADCTMAIN 12:30
PROVIDERS: ATTEND Nurse Practitioner Family
DX: J98.09 Other diseases of bronchus, not elsewhere classified (principal); K76.0 Fatty (change of) liver, not elsewhere classified; R91.8 Other nonspecific abnormal finding of lung field; R06.02 Shortness of breath; R05 Cough; Z88.0 Allergy status to penicillin; Z88.8 Allergy status to other drugs, medicaments and biological substances; Z88.5 Allergy status to narcotic agent; Z91.040 Latex allergy status; Z88.2 Allergy status to sulfonamides
CPT/HCPCS: 82565; 84520; 71275; 36415; Q9967

== ENCOUNTER 2018-10-16 20:20 | Emergency (ER) | payer OTHER ==
[2018-10-16 20:28] VITALS: RESP 18
[2018-10-16] MEDS ORDERED: diphenhydrAMINE 50 MG/ML 1 ML VIAL IVP STA (20:32)
[2018-10-16] MEDS ORDERED: SODIUM CHLORIDE 0.9% 1,000 ML IV STA (20:32)
[2018-10-16] MEDS ORDERED: KETOROLAC 30 MG/ML 1 ML VIAL IVP STA (20:32)
[2018-10-16] MEDS ORDERED: methylPREDNISolone SOD SUCCI 250 MG in SODIUM CHLORIDE 0.9% 100 ML IVPB STA (20:33)
--- NOTE | 2018-10-16 20:33 | ED ---
Headache HPI - General Chief Complaint: Headache Stated Complaint: Migraine Time Seen by Provider: 10/16/18 20:29 Source: RN notes reviewed, old records reviewed Mode of arrival: ambulatory Limitations: no limitations - History of Present Illness Initial Comments: This is a 27-year-old female the ER for evaluation of migraine history of migraines just like chronic migraines. It might medication today with no help. Patient presents ER for evaluation regarding migraine multiple ER visits for same. States his headache is just the same as her prior migraines. Denies chance of MD Complaint: headache, "migraine" (Chest the same of similar migraines) -: hour(s) Onset Description: gradual Location: frontal Severity: moderate Severity scale (1-10): 4 Quality: throbbing Consistency: constant Improves With: nothing Worsens With: none Context: occurred at rest Associated Symptoms: nausea, photophobia, sensitivity to sound Treatments Prior to Arrival: none - Related Data Home Medications Medication Instructions Recorded Confirmed Omeprazole [PriLOSEC] 40 mg PO HS 07/29/16 10/16/18 QUEtiapine FUMARATE [SEROquel] 400 mg PO HS 04/29/18 10/16/18 Propranolol HCl 20 mg PO BID 05/24/18 10/16/18 metFORMIN HCL [Glucophage] 500 mg PO BID 10/05/18 10/16/18 EPINEPHrine [Epipen 2-Mike] 0.3 mg IM ONCE PRN 10/16/18 10/16/18 Ondansetron [Zofran ODT] 4 mg PO Q8HR PRN 10/16/18 10/16/18 Previous Rx's Medication Instructions Recorded Albuterol Inhaler [Ventolin Hfa 1 - 2 puff INHALATION Q4-6H PRN #1 09/17/18 Inhaler] inhaler Albuterol Nebulized [Ventolin 2.5 mg INHALATION Q4H PRN 10 Days 09/17/18 Nebulized] nebu Allergies Allergy/AdvReac Type Severity Reaction Status Date / Time haloperidol [From Haldol] Allergy Severe QUIT Verified 10/16/18 21:39 BREATHING haloperidol lactate Allergy Severe QUIT Verified 10/16/18 21:39 [From Haldol] BREATHING latex Allergy Severe RASH-THROAT Verified 10/16/18 21:39 CLOSES promethazine HCl Allergy Severe Nausea & Verified 10/16/18 21:39 [From Phenergan] Vomiting amoxicillin Allergy Nausea & Verified 10/16/18 21:39 Vomiting bee pollen Allergy Unknown Verified 10/16/18 21:39 ketorolac tromethamine Allergy Nausea & Verified 10/16/18 21:39 [From Toradol] Vomiting prednisone Allergy THROAT Verified 10/16/18 21:39 SWELLS spider venom Allergy Swelling Verified 10/16/18 21:39 Sulfa (Sulfonamide Allergy THROAT Verified 10/16/18 21:39 Antibiotics) SWELLS codeine phosphate AdvReac Nausea & Verified 10/16/18 21:39 [From Tylenol-Codeine #3] Vomiting ANTS Allergy Mild Unknown Uncoded 10/16/18 20:28 WASP Allergy Unknown Uncoded 10/16/18 20:28 Review of Systems ROS Statement: Those systems with pertinent positive or pertinent negative responses have been documented in the HPI. ROS Other: All systems not noted in ROS Statement are negative. Past Medical History Past Medical History: Asthma, Diabetes Mellitus, GERD/Reflux Additional Past Medical History / Comment(s): migraines, constipation/diarrhea, degenerative disk disease, endometriosis History of Any Multi-Drug Resistant Organisms: None Reported Past Surgical History: Orthopedic Surgery Additional Past Surgical History / Comment(s): laparoscopc surgery for endometriosis, cyst removed from left foot, EGD Past Anesthesia/Blood Transfusion Reactions: Previous Problems w/ Anesthesia Additional Past Anesthesia/Blood Transfusion Reaction / Comment(s): hard to wake up for 48-72 hours after laparoscopic surgery-was in hosp. for 3 days Past Psychological History: PTSD Smoking Status: Never smoker Past Alcohol Use History: None Reported Past Drug Use History: None Reported - Past Family History Mother Family Medical History: No Reported History Additional Family Medical History / Comment(s): hx migraines Father Family Medical History: Coronary Artery Disease (CAD), Hypertension Additional Family Medical History / Comment(s): ddd, alcoholism & drug use General Exam Limitations: no limitations General appearance: alert, in no apparent distress Head exam: Present: atraumatic, normocephalic, normal inspection Eye exam: Present: normal appearance, PERRL, EOMI. Absent: scleral icterus, conjunctival injection, periorbital swelling ENT exam: Present: normal exam, mucous membranes moist Neck exam: Present: normal inspection. Absent: tenderness, meningismus, lymphadenopathy Respiratory exam: Present: normal lung sounds bilaterally. Absent: respiratory distress, wheezes, rales, rhonchi, stridor Cardiovascular Exam: Present: regular rate, normal rhythm, normal heart sounds. Absent: systolic murmur, diastolic murmur, rubs, gallop, clicks GI/Abdominal exam: Present: soft, normal bowel sounds. Absent: distended, tenderness, guarding, rebound, rigid Extremities exam: Present: normal inspection, full ROM, normal capillary refill. Absent: tenderness, pedal edema, joint swelling, calf tenderness Back exam: Present: normal inspection Neurological exam: Present: alert, oriented X3, CN II-XII intact Psychiatric exam: Present: normal affect, normal mood Skin exam: Present: warm, dry, intact, normal color. Absent: rash Course Vital Signs 10/16/18 20:26 Temperature 99.5 F Pulse Rate 117 H Respiratory 18 Rate Blood Pressure 125/85 O2 Sat by Pulse 98 Oximetry Medical Decision Making - Medical Decision Making By 7 female the ER with migraine headache history of migraines. Multiple ER visits for migraine multiple episodes of imaging. Patient's headache is improved currently states migraine cocktail always works for her. Patient can be discharged home Disposition Clinical Impression: Migraine Disposition: HOME SELF-CARE Condition: Good Instructions (If sedation given, give patient instructions): Acute Headache (ED) Is patient prescribed a controlled substance at d/c from ED?: No Referrals: Jasper Velarde MD [Primary Care Provider] - 1-2 days
[2018-10-16 23:24] VITALS: BP 127/86; PULSE 110; TEMP 98.9
== END 2018-10-16 22:55 | disposition home or self-care (01) ==
LOC: EC 20:20
DX: G43.909 Migraine, unspecified, not intractable, without status migrainosus (principal); E11.9 Type 2 diabetes mellitus without complications; K21.9 Gastro-esophageal reflux disease without esophagitis; Z79.84 Long term (current) use of oral hypoglycemic drugs; Z79.899 Other long term (current) drug therapy; Z88.0 Allergy status to penicillin; Z88.2 Allergy status to sulfonamides; Z88.6 Allergy status to analgesic agent; Z91.030 Bee allergy status; Z91.040 Latex allergy status; Z88.5 Allergy status to narcotic agent; Z88.8 Allergy status to other drugs, medicaments and biological substances; Z91.038 Other insect allergy status
CPT/HCPCS: 99283; 96365; 96375 ×2; 96361; J1200; J2930; J1885

== ENCOUNTER → 2018-10-26 | Outpatient (CLI) | payer OTHER ==
[2018-10-26 12:44] LABS: Ionized Calcium 5.6 mg/dL (4.5-5.3)
[2018-10-26 18:15] LABS: Parathyroid Hormone Intact 74.3 pg/mL (14.0-72.0)
[2018-10-26 18:22] LABS: Calcium 9.5 mg/dL (8.7-10.3); Cholesterol 293 mg/dL (0-200); Magnesium 1.8 mg/dL (1.5-2.4); Phosphorus 3.1 mg/dL (2.4-5.1); Potassium 4.1 mmol/L (3.5-5.5); Triglycerides >1100.0 mg/dL (0.0-149.0); Vitamin D 25 Hydroxy 10.6 ng/mL (30.0-100.0)
== END | disposition home or self-care (01) ==
LOC: LABWHC1 11:46
PROVIDERS: ATTEND Psychiatry & Neurology Neurology
DX: E83.52 Hypercalcemia (principal); E11.9 Type 2 diabetes mellitus without complications
CPT/HCPCS: 36415; 80061; 82306; 82310; 82330; 82607; 83735; 83970; 84100; 84132

== ENCOUNTER 2018-11-03 11:08 | Emergency (ER) | payer OTHER ==
[2018-11-03 11:13] VITALS: BP 132/84; PULSE 98; RESP 20; TEMP 98.5
--- NOTE | 2018-11-03 12:00 | ED ---
Skin/Abscess/FB HPI - General Chief complaint: Skin/Abscess/Foreign Body Stated complaint: spider bite on back of head Time Seen by Provider: 11/03/18 11:14 Source: patient, RN notes reviewed, old records reviewed Mode of arrival: ambulatory Limitations: no limitations - History of Present Illness Initial comments: 28-year-old female presents emergency Department today with complaints of an infected scratch or possible insect bite over the back of her scalp. She reports she noticed this 3 days ago. Patient reports it seems to be red and swollen. Patient states that she's had no other symptoms. - Related Data Home Medications Medication Instructions Recorded Confirmed Omeprazole [PriLOSEC] 40 mg PO HS 07/29/16 10/16/18 QUEtiapine FUMARATE [SEROquel] 400 mg PO HS 04/29/18 10/16/18 Propranolol HCl 20 mg PO BID 05/24/18 10/16/18 metFORMIN HCL [Glucophage] 500 mg PO BID 10/05/18 10/16/18 EPINEPHrine [Epipen 2-Mike] 0.3 mg IM ONCE PRN 10/16/18 10/16/18 Ondansetron [Zofran ODT] 4 mg PO Q8HR PRN 10/16/18 10/16/18 Previous Rx's Medication Instructions Recorded Albuterol Inhaler [Ventolin Hfa 1 - 2 puff INHALATION Q4-6H PRN #1 09/17/18 Inhaler] inhaler Albuterol Nebulized [Ventolin 2.5 mg INHALATION Q4H PRN 10 Days 09/17/18 Nebulized] nebu Cephalexin [Keflex] 500 mg PO Q6HR 3 Days #12 cap 11/03/18 Allergies Allergy/AdvReac Type Severity Reaction Status Date / Time haloperidol [From Haldol] Allergy Severe QUIT Verified 11/03/18 11:13 BREATHING haloperidol lactate Allergy Severe QUIT Verified 11/03/18 11:13 [From Haldol] BREATHING latex Allergy Severe RASH-THROAT Verified 11/03/18 11:13 CLOSES promethazine HCl Allergy Severe Nausea & Verified 11/03/18 11:13 [From Phenergan] Vomiting amoxicillin Allergy Nausea & Verified 11/03/18 11:13 Vomiting bee pollen Allergy Unknown Verified 11/03/18 11:13 ketorolac tromethamine Allergy Nausea & Verified 11/03/18 11:13 [From Toradol] Vomiting prednisone Allergy THROAT Verified 11/03/18 11:13 SWELLS spider venom Allergy Swelling Verified 11/03/18 11:13 Sulfa (Sulfonamide Allergy THROAT Verified 11/03/18 11:13 Antibiotics) SWELLS codeine phosphate AdvReac Nausea & Verified 11/03/18 11:13 [From Tylenol-Codeine #3] Vomiting ANTS Allergy Mild Unknown Uncoded 11/03/18 11:13 WASP Allergy Unknown Uncoded 11/03/18 11:13 Review of Systems ROS Statement: Those systems with pertinent positive or pertinent negative responses have been documented in the HPI. ROS Other: All systems not noted in ROS Statement are negative. Past Medical History Past Medical History: Asthma, Diabetes Mellitus, GERD/Reflux Additional Past Medical History / Comment(s): migraines, constipation/diarrhea, degenerative disk disease, endometriosis History of Any Multi-Drug Resistant Organisms: None Reported Past Surgical History: Orthopedic Surgery Additional Past Surgical History / Comment(s): laparoscopc surgery for endometriosis, cyst removed from left foot, EGD Past Anesthesia/Blood Transfusion Reactions: Previous Problems w/ Anesthesia Additional Past Anesthesia/Blood Transfusion Reaction / Comment(s): hard to wake up for 48-72 hours after laparoscopic surgery-was in hosp. for 3 days Past Psychological History: PTSD Smoking Status: Never smoker Past Alcohol Use History: None Reported Past Drug Use History: None Reported - Past Family History Mother Family Medical History: No Reported History Additional Family Medical History / Comment(s): hx migraines Father Family Medical History: Coronary Artery Disease (CAD), Hypertension Additional Family Medical History / Comment(s): ddd, alcoholism & drug use General Exam - General Exam Comments Initial Comments: Alert and oriented 28-year-old female. No distress. Limitations: no limitations General appearance: alert, in no apparent distress Head exam: Present: atraumatic, normocephalic, normal inspection, other (She has a 2 cm abrasion over the right posterior scalp. Air evidence of swelling and some minor erythema over the back of scalp.) Eye exam: Present: normal appearance, PERRL, EOMI. Absent: scleral icterus, conjunctival injection, periorbital swelling ENT exam: Present: normal exam, mucous membranes moist Neck exam: Present: normal inspection. Absent: tenderness, meningismus, lymphadenopathy Respiratory exam: Present: normal lung sounds bilaterally Cardiovascular Exam: Present: regular rate, normal rhythm, normal heart sounds. Absent: systolic murmur, diastolic murmur, rubs, gallop, clicks GI/Abdominal exam: Present: soft, normal bowel sounds. Absent: distended, tenderness, guarding, rebound, rigid Extremities exam: Present: normal inspection, full ROM, normal capillary refill. Absent: tenderness, pedal edema, joint swelling, calf tenderness Back exam: Present: normal inspection Neurological exam: Present: alert, oriented X3, CN II-XII intact Psychiatric exam: Present: normal affect Skin exam: Present: warm Course Vital Signs 11/03/18 11:10 Temperature 98.5 F Pulse Rate 98 Respiratory 20 Rate Blood Pressure 132/84 O2 Sat by Pulse 99 Oximetry Procedures - Incision & Drainage Consent Obtained: verbal consent Indication: abscess Site: scalp Size (cm): 2 I&D Cleaning Method: Alcohol Wipe Sterile Field Used?: Yes Needle Aspiration Performed?: No Irrigation Performed?: No I&D Drainage Obtained: Pus, Blood Patient Tolerated Procedure: well, no complications Medical Decision Making - Medical Decision Making This is a 28-year-old female presents with 3 days of irritation over the right posterior scalp. She was she was bit by an insect or scratch the area causing an infection. I used an 18-gauge needle and cleaned the area with alcohol. I opened the pocket and a small amount of pus was removed from the back of the area on the scalp. It is too small for packing. Patient states she small amount of pus to culture. Patient will be started on Keflex for 3 days and advised to put Bactroban ointment over the area. Discussed more converses as well. All questions answered return parameters were discussed. Disposition Clinical Impression: Abrasion, scalp with infection Disposition: HOME SELF-CARE Condition: Good Instructions (If sedation given, give patient instructions): Abscess (ED) Additional Instructions: Patient advised to apply warm compresses over the area. Put a thin film of antibiotic ointment. Take the oral events for the next few days as prescribed. Return to emergency department if any alarming signs or symptoms occur. Prescriptions: Cephalexin [Keflex] 500 mg PO Q6HR 3 Days #12 cap Is patient prescribed a controlled substance at d/c from ED?: No Referrals: Jaime Stanford Jr, [Primary Care Provider] - 1-2 days Time of Disposition: 12:00
== END 2018-11-03 12:09 | disposition home or self-care (01) ==
LOC: EC 11:08
DX: S00.01XA Abrasion of scalp, initial encounter (principal); L02.811 Cutaneous abscess of head [any part, except face]; K21.9 Gastro-esophageal reflux disease without esophagitis; E11.9 Type 2 diabetes mellitus without complications; Z79.84 Long term (current) use of oral hypoglycemic drugs; Z79.899 Other long term (current) drug therapy; Z88.8 Allergy status to other drugs, medicaments and biological substances; Z91.040 Latex allergy status; Z88.0 Allergy status to penicillin; Z91.030 Bee allergy status; Z88.6 Allergy status to analgesic agent; Z88.2 Allergy status to sulfonamides; Z91.09 Other allergy status, other than to drugs and biological substances; W57.XXXA Bitten or stung by nonvenomous insect and other nonvenomous arthropods, initial encounter
CPT/HCPCS: 10060; 99283

== ENCOUNTER 2018-11-18 18:30 | Emergency (ER) | payer OTHER ==
[2018-11-18 18:46] VITALS: RESP 16; TEMP 98.9
[2018-11-18] MEDS ORDERED: SODIUM CHLORIDE 0.9% 2,000 ML IV STA (19:09)
[2018-11-18 19:28] LABS: Basophils % (A) 1 %; Eosinophils # (A) 0.2 k/uL (0-0.7); Eosinophils % (A) 2 %; HCT 41.1 % (34.0-46.0); HGB 14.7 gm/dL (11.4-16.0); Lymphocytes # (A) 3.1 k/uL (1.0-4.8); Lymphocytes % (A) 39 %; MCH 32.3 pg (25.0-35.0); MCHC 35.7 g/dL (31.0-37.0); MCV 90.6 fL (80.0-100.0); Mean Platelet Volume 7.8; Monocytes # (A) 0.3 k/uL (0-1.0); Monocytes % (A) 4 %; Neutrophils # (A) 4.1 k/uL (1.3-7.7); Neutrophils % (A) 53 %; Platelet Count 197 k/uL (150-450); RBC 4.53 m/uL (3.80-5.40); RDW 13.6 % (11.5-15.5); WBC 7.8 k/uL (3.8-10.6)
[2018-11-18 19:34] LABS: Appearance,Urine Cloudy (Clear); Bacteria,Urine Rare /hpf; Bilirubin,Urine Negative (Negative); Blood,Urine Negative (Negative); Color,Urine Yellow; Glucose,Urine (UA) 2+ (Negative); Ketones,Urine Trace (Negative); Leukocyte Esterase,Urine Large (Negative); Mucus,Urine Rare /hpf; Nitrite,Urine Negative (Negative); PH, Urine 5.5 (5.0-8.0); Protein,Urine 1+ (Negative); RBC,Urine 2 /hpf (0-5); Specific Gravity,Urine 1.033 (1.001-1.035); Squamous Epithelial Cell,Urine 5 /hpf (0-4); Urobilinogen,Urine <2.0 mg/dL (<2.0)
[2018-11-18 19:38] LABS: ALT 39 U/L (9-52); AST 50 U/L (14-36); African American GFR (CKD) >90 (>60 ml/min/1.73 sqM); Albumin 4.4 g/dL (3.5-5.0); Alkaline Phosphatase 75 U/L (38-126); Anion Gap 15 mmol/L; Blood Urea Nitrogen 13 mg/dL (7-17); Calcium 10.7 mg/dL (8.4-10.2); Carbon Dioxide 16 mmol/L (22-30); Chloride 107 mmol/L (98-107); Glucose 155 mg/dL (74-99); Potassium 4.4 mmol/L (3.5-5.1); Sodium 138 mmol/L (137-145); Total Bilirubin 0.6 mg/dL (0.2-1.3); Total Protein 8.2 g/dL (6.3-8.2)
--- NOTE | 2018-11-18 19:38 | XR ---
EXAMINATION TYPE: XR KUB DATE OF EXAM: 11/18/2018 COMPARISON: 05/24/2018 HISTORY: Diarrhea TECHNIQUE: 2 views upright FINDINGS: Bowel gas pattern is normal. There is no sign of intestinal obstruction or pneumoperitoneum . Fecal pattern is normal. There is no sign of a mass. Lung bases are clear. IMPRESSION: Nonacute abdomen. No change.
--- NOTE | 2018-11-18 20:13 | ED ---
Nausea/Vomiting/Diarrhea HPI - General Chief complaint: Nausea/Vomiting/Diarrhea Stated complaint: Abd Pain Time Seen by Provider: 11/18/18 18:45 Source: patient Mode of arrival: ambulatory Limitations: no limitations - History of Present Illness Initial comments: Patient is a 28 year old female who presents to the emergency room with reported diarrhea for the past 3 months. She states that it started when she was placed on metformin. She is a diabetic. She was taking 500 mg twice a day. After the diarrhea was persistent she did see Dr. Stanford in office. He did decrease her dose to 500 mg once a day. States that she still continues to have persistent diarrhea. It is brown in color. Denies melanotic stools or hematochezia. She denies any associated abdominal pain. No changes in her urination. Denies any abnormal vaginal bleeding or discharge. She denies any sick contacts or recent travel. No other medication changes. Denies any nausea or vomiting. No fevers or chills. No recent antibiotic use. There are no other alleviating, precipitating or modifying factors - Related Data Home Medications Medication Instructions Recorded Confirmed Omeprazole [PriLOSEC] 40 mg PO HS 07/29/16 11/18/18 Propranolol HCl 20 mg PO BID 05/24/18 11/18/18 EPINEPHrine [Epipen 2-Mike] 0.3 mg IM ONCE PRN 10/16/18 11/18/18 Albuterol Inhaler [Ventolin Hfa 2 puff INHALATION RT-Q6H PRN 11/18/18 11/18/18 Inhaler] Albuterol Nebulized [Ventolin 2.5 mg INHALATION RT-Q4H PRN 11/18/18 11/18/18 Nebulized] QUEtiapine FUMARATE [SEROquel] 300 mg PO HS 11/18/18 11/18/18 tiZANidine [Zanaflex] 4 mg PO BID PRN 11/18/18 11/18/18 Previous Rx's Medication Instructions Recorded sitaGLIPtin [Januvia] 50 mg PO DAILY #14 tab 11/18/18 Cephalexin [Keflex] 500 mg PO Q12HR 5 Days #10 cap 11/26/18 Allergies Allergy/AdvReac Type Severity Reaction Status Date / Time haloperidol [From Haldol] Allergy Severe QUIT Verified 11/25/18 21:52 BREATHING haloperidol lactate Allergy Severe QUIT Verified 11/25/18 21:52 [From Haldol] BREATHING latex Allergy Severe RASH-THROAT Verified 11/25/18 21:52 CLOSES promethazine HCl Allergy Severe Nausea & Verified 11/25/18 21:52 [From Phenergan] Vomiting amoxicillin Allergy Nausea & Verified 11/25/18 21:52 Vomiting bee pollen Allergy Unknown Verified 11/25/18 21:52 ketorolac tromethamine Allergy Nausea & Verified 11/25/18 21:52 [From Toradol] Vomiting prednisone Allergy THROAT Verified 11/25/18 21:52 SWELLS spider venom Allergy Swelling Verified 11/25/18 21:52 Sulfa (Sulfonamide Allergy THROAT Verified 11/25/18 21:52 Antibiotics) SWELLS codeine phosphate AdvReac Nausea & Verified 11/25/18 21:52 [From Tylenol-Codeine #3] Vomiting ANTS Allergy Mild Unknown Uncoded 11/25/18 21:52 WASP Allergy Unknown Uncoded 11/25/18 21:52 Review of Systems ROS Statement: Those systems with pertinent positive or pertinent negative responses have been documented in the HPI. ROS Other: All systems not noted in ROS Statement are negative. Past Medical History Past Medical History: Asthma, Diabetes Mellitus, GERD/Reflux Additional Past Medical History / Comment(s): migraines, constipation/diarrhea, degenerative disk disease, endometriosis History of Any Multi-Drug Resistant Organisms: None Reported Past Surgical History: Orthopedic Surgery Additional Past Surgical History / Comment(s): laparoscopc surgery for endome triosis, cyst removed from left foot, EGD Past Anesthesia/Blood Transfusion Reactions: Previous Problems w/ Anesthesia Additional Past Anesthesia/Blood Transfusion Reaction / Comment(s): hard to wake up for 48-72 hours after laparoscopic surgery-was in hosp. for 3 days Past Psychological History: PTSD Smoking Status: Never smoker Past Alcohol Use History: None Reported Past Drug Use History: None Reported - Past Family History Mother Family Medical History: No Reported History Additional Family Medical History / Comment(s): hx migraines Father Family Medical History: Coronary Artery Disease (CAD), Hypertension Additional Family Medical History / Comment(s): ddd, alcoholism & drug use General Exam Limitations: no limitations General appearance: alert, in no apparent distress Head exam: Present: atraumatic, normocephalic, normal inspection Eye exam: Present: normal appearance, PERRL, EOMI. Absent: scleral icterus, conjunctival injection, periorbital swelling ENT exam: Present: normal exam, mucous membranes moist Neck exam: Present: normal inspection. Absent: tenderness, meningismus, lymphadenopathy Respiratory exam: Present: normal lung sounds bilaterally. Absent: respiratory distress, wheezes, rales, rhonchi, stridor Cardiovascular Exam: Present: regular rate, normal rhythm, normal heart sounds. Absent: systolic murmur, diastolic murmur, rubs, gallop, clicks GI/Abdominal exam: Present: soft, normal bowel sounds. Absent: distended, tenderness, guarding, rebound, rigid Extremities exam: Present: normal inspection, full ROM, normal capillary refill. Absent: tenderness, pedal edema, joint swelling, calf tenderness Back exam: Present: normal inspection Neurological exam: Present: alert, oriented X3, CN II-XII intact Psychiatric exam: Present: normal affect, normal mood Skin exam: Present: warm, dry, intact, normal color. Absent: rash Course Vital Signs 11/18/18 11/18/18 18:44 21:32 Temperature 98.9 F Pulse Rate 105 H 92 Respiratory 16 16 Rate Blood Pressure 116/91 110/83 O2 Sat by Pulse 97 99 Oximetry Medical Decision Making - Medical Decision Making Upon arrival the patient is placed into room 21. She is hooked up to continuous pulse ox and cardiac monitoring. Peripheral IV is established patient is given 2 L bolus of normal saline. I did recommend laboratory studies as well as an acute abdominal series. Patient did agree to this. Upon return of the results, I did discuss them with the patient. I did discuss diagnosis, differential and treatment options. I did call discuss case with Dr. Rice. He did recommend that the patient be taken off of metformin and started on Januvia. I discussed this with the patient she did agree to the treatment plan. Patient was written a prescription for Januvia. She is to call and follow up with Dr. Rice on Wednesday. The patient understood this. If she has any new or worsening symptoms or ill side effects over the weekend, she should discontinue the medication. The patient was in agreement with the treatment plan and was discharge home in stable condition - Differential Diagnosis chronic diarrhea, medication side effect, DM type 2 - Lab Data Result diagrams: 11/18/18 Unknown 11/18/18 Unknown Lab Results 11/18/18 11/18/1811/18/19 Range/Units Unknown Unknown Unknown WBC 7.8 (3.8-10.6) k/uL RBC 4.53 (3.80-5.40) m/uL Hgb 14.7 (11.4-16.0) gm/dL Hct 41.1 (34.0-46.0) % MCV 90.6 (80.0-100.0) fL MCH 32.3 (25.0-35.0) pg MCHC 35.7 (31.0-37.0) g/dL RDW 13.6 (11.5-15.5) % Plt Count 197 (150-450) k/uL Neutrophils % 53 % Lymphocytes % 39 % Monocytes % 4 % Eosinophils % 2 % Basophils % 1 % Neutrophils # 4.1 (1.3-7.7) k/uL Lymphocytes # 3.1 (1.0-4.8) k/uL Monocytes # 0.3 (0-1.0) k/uL Eosinophils # 0.2 (0-0.7) k/uL Basophils # 0.0 (0-0.2) k/uL Sodium 138 (137-145) mmol/L Potassium 4.4 (3.5-5.1) mmol/L Chloride 107 (98-107) mmol/L Carbon Dioxide 16 L (22-30) mmol/L Anion Gap 15 mmol/L BUN 13 (7-17) mg/dL Creatinine 0.62 (0.52-1.04) mg/dL Est GFR (CKD-EPI)AfAm >90 (>60 ml/min/1.73 sqM) Est GFR (CKD-EPI)NonAf >90 (>60 ml/min/1.73 sqM) Glucose 155 H (74-99) mg/dL Calcium 10.7 H (8.4-10.2) mg/dL Total Bilirubin 0.6 (0.2-1.3) mg/dL AST 50 H (14-36) U/L ALT 39 (9-52) U/L Alkaline Phosphatase 75 (38-126) U/L Total Protein 8.2 (6.3-8.2) g/dL Albumin 4.4 (3.5-5.0) g/dL Lipase 140 (23-300) U/L Urine Color Yellow Urine Appearance Cloudy H (Clear) Urine pH 5.5 (5.0-8.0) Ur Specific [place] 1.033 (1.001-1.035) Urine Protein 1+ H (Negative) Urine Glucose (UA) 2+ H (Negative) Urine Ketones Trace H (Negative) Urine Blood Negative (Negative) Urine Nitrite Negative (Negative) Urine Bilirubin Negative (Negative) Urine Urobilinogen <2.0 (<2.0) mg/dL Ur Leukocyte Esterase Large H (Negative) Urine RBC 2 (0-5) /hpf Urine WBC 22 H (0-5) /hpf Ur Squamous Epith Cells 5 H (0-4) /hpf Urine Bacteria Rare H (None) /hpf Urine Mucus Rare H (None) /hpf Disposition Clinical Impression: Dehydration, Medication side effect, Hyperglycemia Disposition: HOME SELF-CARE Condition: Stable Instructions (If sedation given, give patient instructions): Acute Diarrhea (ED) Additional Instructions: Please stop taking the metformin at home. Follow up with Dr. Stanford on Wednesday. You will be starting a new medication called Januvia. Take as directed. If you have any ill side effects, stopped taking it and either come to the emergency department or see Dr. Stanford. Return to the emergency room for any new or worsening symptoms Prescriptions: sitaGLIPtin [Januvia] 50 mg PO DAILY #14 tab Is patient prescribed a controlled substance at d/c from ED?: No Referrals: Jaime Stanford Jr, DO [Primary Care Provider] - 1-2 days Time of Disposition: 20:13
[2018-11-18 21:33] VITALS: BP 110/83; PULSE 92
== END 2018-11-18 21:42 | disposition home or self-care (01) ==
LOC: EC 18:30
DX: E86.0 Dehydration (principal); R19.7 Diarrhea, unspecified; E11.65 Type 2 diabetes mellitus with hyperglycemia; T38.3X5A Adverse effect of insulin and oral hypoglycemic [antidiabetic] drugs, initial encounter; J45.909 Unspecified asthma, uncomplicated; K21.9 Gastro-esophageal reflux disease without esophagitis; Z88.0 Allergy status to penicillin; Z88.2 Allergy status to sulfonamides; Z88.5 Allergy status to narcotic agent; Z88.6 Allergy status to analgesic agent; Z88.8 Allergy status to other drugs, medicaments and biological substances; Z91.030 Bee allergy status; Z91.038 Other insect allergy status; Z91.040 Latex allergy status; Z79.84 Long term (current) use of oral hypoglycemic drugs; Z79.899 Other long term (current) drug therapy; Z86.69 Personal history of other diseases of the nervous system and sense organs
CPT/HCPCS: 36415; 74018; 80053; 81001; 83690; 85025; 87086; 96360; 96361; 99284

== ENCOUNTER 2018-11-25 21:46 | Emergency (ER) | payer OTHER ==
[2018-11-25 22:44] LABS: Basophils # (A) 0.1 k/uL (0-0.2); Basophils % (A) 1 %; Eosinophils # (A) 0.2 k/uL (0-0.7); Eosinophils % (A) 2 %; HCT 40.5 % (34.0-46.0); HGB 14.6 gm/dL (11.4-16.0); Lymphocytes # (A) 2.7 k/uL (1.0-4.8); Lymphocytes % (A) 42 %; MCH 32.6 pg (25.0-35.0); MCV 90.5 fL (80.0-100.0); Mean Platelet Volume 9.2; Monocytes # (A) 0.4 k/uL (0-1.0); Monocytes % (A) 6 %; Neutrophils % (A) 47 %; Platelet Count 213 k/uL (150-450); RBC 4.47 m/uL (3.80-5.40); RDW 15.1 % (11.5-15.5); WBC 6.5 k/uL (3.8-10.6)
[2018-11-25 22:46] LABS: Appearance,Urine Cloudy (Clear); Bacteria,Urine Few /hpf; Bilirubin,Urine Negative (Negative); Blood,Urine Negative (Negative); Color,Urine Yellow; Glucose,Urine (UA) 4+ (Negative); Ketones,Urine Negative (Negative); Leukocyte Esterase,Urine Large (Negative); Mucus,Urine Many /hpf; Nitrite,Urine Negative (Negative); PH, Urine 5.5 (5.0-8.0); Protein,Urine 1+ (Negative); RBC,Urine 8 /hpf (0-5); Squamous Epithelial Cell,Urine 4 /hpf (0-4); Urobilinogen,Urine <2.0 mg/dL (<2.0); WBC,Urine 34 /hpf (0-5)
[2018-11-25 22:52] LABS: AST 91 U/L (14-36); African American GFR (CKD) >90 (>60 ml/min/1.73 sqM); Anion Gap 13 mmol/L; Calcium 10.8 mg/dL (8.4-10.2); Carbon Dioxide 20 mmol/L (22-30); Chloride 105 mmol/L (98-107); Glucose 145 mg/dL (74-99); Sodium 138 mmol/L (137-145); Total Bilirubin 0.8 mg/dL (0.2-1.3)
[2018-11-25 22:57] LABS: Potassium 4.8 mmol/L (3.5-5.1)
[2018-11-25 22:58] LABS: ALT 48 U/L (9-52); Albumin 4.5 g/dL (3.5-5.0); Alkaline Phosphatase 57 U/L (38-126); Amylase 50 U/L (30-110); Blood Urea Nitrogen 11 mg/dL (7-17); Total Protein 8.6 g/dL (6.3-8.2)
--- NOTE | 2018-11-25 23:07 | ED ---
Abdominal Pain HPI - General Chief Complaint: Abdominal Pain Stated Complaint: rt sided abd pain, vomiting Time Seen by Provider: 11/25/18 22:07 Source: patient Mode of arrival: ambulatory Limitations: no limitations - History of Present Illness Initial Comments: 28-year-old female with history of DMII presenting today for chief complaint of right upper quadrant abdominal pain and vomiting. Patient states that since this morning she's had liver quadrant abdominal pain she describes as sharp breath around towards the right side. She states that she has had vomiting. Patient states she has had loose stools for as long she can remember. Denies melena hematochezia. Denies fevers. Patient denies any hematemesis. Patient denies chest pain she denies shortness of breath. Patient denies any pleuritic chest pain or pain in the abdomen. Patient states the pain increases with movement/change of postions. Patient denies urinary symptoms. Remaining ROS (-). - Related Data Home Medications Medication Instructions Recorded Confirmed Omeprazole [PriLOSEC] 40 mg PO HS 07/29/16 11/18/18 Propranolol HCl 20 mg PO BID 05/24/18 11/18/18 EPINEPHrine [Epipen 2-Mike] 0.3 mg IM ONCE PRN 10/16/18 11/18/18 Albuterol Inhaler [Ventolin Hfa 2 puff INHALATION RT-Q6H PRN 11/18/18 11/18/18 Inhaler] Albuterol Nebulized [Ventolin 2.5 mg INHALATION RT-Q4H PRN 11/18/18 11/18/18 Nebulized] QUEtiapine FUMARATE [SEROquel] 300 mg PO HS 11/18/18 11/18/18 tiZANidine [Zanaflex] 4 mg PO BID PRN 11/18/18 11/18/18 Previous Rx's Medication Instructions Recorded sitaGLIPtin [Januvia] 50 mg PO DAILY #14 tab 11/18/18 Cephalexin [Keflex] 500 mg PO Q12HR 5 Days #10 cap 11/26/18 Allergies Allergy/AdvReac Type Severity Reaction Status Date / Time haloperidol [From Haldol] Allergy Severe QUIT Verified 11/25/18 21:52 BREATHING haloperidol lactate Allergy Severe QUIT Verified 11/25/18 21:52 [From Haldol] BREATHING latex Allergy Severe RASH-THROAT Verified 11/25/18 21:52 CLOSES promethazine HCl Allergy Severe Nausea & Verified 11/25/18 21:52 [From Phenergan] Vomiting amoxicillin Allergy Nausea & Verified 11/25/18 21:52 Vomiting bee pollen Allergy Unknown Verified 11/25/18 21:52 ketorolac tromethamine Allergy Nausea & Verified 11/25/18 21:52 [From Toradol] Vomiting prednisone Allergy THROAT Verified 11/25/18 21:52 SWELLS spider venom Allergy Swelling Verified 11/25/18 21:52 Sulfa (Sulfonamide Allergy THROAT Verified 11/25/18 21:52 Antibiotics) SWELLS codeine phosphate AdvReac Nausea & Verified 11/25/18 21:52 [From Tylenol-Codeine #3] Vomiting ANTS Allergy Mild Unknown Uncoded 11/25/18 21:52 WASP Allergy Unknown Uncoded 11/25/18 21:52 Review of Systems ROS Statement: Those systems with pertinent positive or pertinent negative responses have been documented in the HPI. ROS Other: All systems not noted in ROS Statement are negative. Past Medical History Past Medical History: Asthma, Diabetes Mellitus, GERD/Reflux Additional Past Medical History / Comment(s): migraines, constipation/diarrhea, degenerative disk disease, endometriosis History of Any Multi-Drug Resistant Organisms: None Reported Past Surgical History: Orthopedic Surgery Additional Past Surgical History / Comment(s): laparoscopc surgery for endometriosis, cyst removed from left foot, EGD Past Anesthesia/Blood Transfusion Reactions: Previous Problems w/ Anesthesia Additional Past Anesthesia/Blood Transfusion Reaction / Comment(s): hard to wake up for 48-72 hours after laparoscopic surgery-was in hosp. for 3 days Past Psychological History: PTSD Smoking Status: Never smoker Past Alcohol Use History: None Reported Past Drug Use History: None Reported - Past Family History Mother Family Medical History: No Reported History Additional Family Medical History / Comment(s): hx migraines Father Family Medical History: Coronary Artery Disease (CAD), Hypertension Additional Family Medical History / Comment(s): ddd, alcoholism & drug use General Exam - General Exam Comments Initial Comments: General: The patient is awake and alert, in no distress Eye: Pupils are equal, round and reactive to light, extra-ocular movements are intact. No nystagmus. There is normal conjunctiva bilaterally. No signs of icterus. Ears, nose, mouth and throat: There are moist mucous membranes and no oral lesions. Neck: The neck is supple, there is no tenderness or JVD. Cardiovascular: There is a regular rate and rhythm. No murmur, rub or gallop is appreciated. Respiratory: Lungs are clear to auscultation, respirations are non-labored, breath sounds are equal. No wheezes, stridor, rales, or rhonchi. Gastrointestinal: Soft, non-distended, right upper quardant tenderness to deep palpation abdomen without masses or organomegaly noted. There is no rebound or guarding present. (-) heel jar. (-) Merritt. Bowel sounds are unremarkable Musculoskeletal: Normal ROM, no tenderness. Strength 5/5. Sensation intact. radial pulses equal bilaterally 2+. Neurological: A&O x 3. CN II-XII intact, There are no obvious motor or sensory deficits. Coordination appears grossly intact. Speech is normal. Skin: Skin is warm and dry and no rashes or lesions are noted. Psychiatric: Cooperative, appropriate mood & affect, normal judgment. Limitations: no limitations Course Vital Signs 11/25/18 21:50 Temperature 99.1 F Pulse Rate 105 H Respiratory 20 Rate Blood Pressure 120/82 O2 Sat by Pulse 96 Oximetry Medical Decision Making - Medical Decision Making 28-year-old female presented for upper quadrant abdominal pain and vomiting times one day. Patient does have some mild tenderness to palpation of the right upper quadrant. There is no rigidity guarding or protective posturing. This does not appear to be acute abdomen. Negative Mercy sign. Ultrasound revealed no signs of acute cholecystitis or disease the biliary system. No increase in alk phos at 2 days or significant increase in transaminases. No leukocytosis. No lower abdominal tenderness. No fevers. Patient does have history of diabetes with elevation of blood glucose. Patient appears dry on examination no active vomiting in the ER. Patient was provided IV hydration once line was established at 00:44. At this time findings were discussed with patient who is agreeable discharge after IV hydration. I did sign out the patient to tawnya fan, who will discharge patient after hydration a slong as there are no changes in patient course in the ED. Patient appears well upon shift change and was given ceftriaxone for UTI - Lab Data Result diagrams: 11/25/18 22:35 11/25/18 22:35 Lab Results 08/16/19 08/16/19 08/16/19 Range/Units 22:35 22:35 22:35 WBC 6.5 (3.8-10.6) k/uL RBC 4.47 (3.80-5.40) m/uL Hgb 14.6 (11.4-16.0) gm/dL Hct 40.5 (34.0-46.0) % MCV 90.5 (80.0-100.0) fL MCH 32.6 (25.0-35.0) pg MCHC 36.0 (31.0-37.0) g/dL RDW 15.1 (11.5-15.5) % Plt Count 213 (150-450) k/uL Neutrophils % 47 % Lymphocytes % 42 % Monocytes % 6 % Eosinophils % 2 % Basophils % 1 % Neutrophils # 3.0 (1.3-7.7) k/uL Lymphocytes # 2.7 (1.0-4.8) k/uL Monocytes # 0.4 (0-1.0) k/uL Eosinophils # 0.2 (0-0.7) k/uL Basophils # 0.1 (0-0.2) k/uL Sodium 138 (137-145) mmol/L Potassium 4.8 (3.5-5.1) mmol/L Chloride 105 (98-107) mmol/L Carbon Dioxide 20 L (22-30) mmol/L Anion Gap 13 mmol/L BUN 11 (7-17) mg/dL Creatinine 0.72 (0.52-1.04) mg/dL Est GFR (CKD-EPI)AfAm >90 (>60 ml/min/1.73 sqM) Est GFR (CKD-EPI)NonAf >90 (>60 ml/min/1.73 sqM) Glucose 145 H (74-99) mg/dL Calcium 10.8 H (8.4-10.2) mg/dL Total Bilirubin 0.8 (0.2-1.3) mg/dL AST 91 H (14-36) U/L ALT 48 (9-52) U/L Alkaline Phosphatase 57 (38-126) U/L Total Protein 8.6 H (6.3-8.2) g/dL Albumin 4.5 (3.5-5.0) g/dL Amylase 50 (30-110) U/L Lipase 193 (23-300) U/L Urine Color Yellow Urine Appearance Cloudy H (Clear) Urine pH 5.5 (5.0-8.0) Ur Specific Henderson 1.030 (1.001-1.035) Urine Protein 1+ H (Negative) Urine Glucose (UA) 4+ H (Negative) Urine Ketones Negative (Negative) Urine Blood Negative (Negative) Urine Nitrite Negative (Negative) Urine Bilirubin Negative (Negative) Urine Urobilinogen <2.0 (<2.0) mg/dL Ur Leukocyte Esterase Large H (Negative) Urine RBC 8 H (0-5) /hpf Urine WBC 34 H (0-5) /hpf Ur Squamous Epith Cells 4 (0-4) /hpf Urine Bacteria Few H (None) /hpf Urine Mucus Many H (None) /hpf Disposition Clinical Impression: UTI (urinary tract infection), RUQ abdominal pain, Vomiting, Blood glucose elevated Disposition: HOME SELF-CARE Condition: Good Instructions (If sedation given, give patient instructions): Urinary Tract Infection in Women (ED), Abdominal Pain (ED) Additional Instructions: Please use medication as discussed. Please follow-up with family doctor in the next 2 days. Please return to emergency room if the symptoms increase or worsen or for any other concerns. Prescriptions: Cephalexin [Keflex] 500 mg PO Q12HR 5 Days #10 cap Is patient prescribed a controlled substance at d/c from ED?: No Referrals: Jaime Stanford Jr, DO [Primary Care Provider] - 1-2 days Time of Disposition: 00:41
--- NOTE | 2018-11-25 23:30 | US ---
EXAM: US Abdomen Limited, Right Upper Quadrant CLINICAL HISTORY: ITS.REASON US Reason: r/o yong, RUQ pain TECHNIQUE: Real-time ultrasound of the right upper quadrant with image documentation. COMPARISON: No relevant prior studies available. FINDINGS: Liver: Hepatomegaly. No intrahepatic bile duct dilation. Gallbladder: Unremarkable. No gallstones. Common bile duct: Unremarkable as visualized. No stones. No dilation. Pancreas: Unremarkable as visualized. Right kidney: Unremarkable. No stones. No solid mass. No hydronephrosis. IMPRESSION: No acute findings.
[2018-11-25] MEDS ORDERED: SODIUM CHLORIDE 0.9% 1,000 ML IV ONE (23:40)
[2018-11-25] MEDS ORDERED: cefTRIAXone IN SWFI 1,000 MG/10 ML SYRINGE IVP STA (23:50)
[2018-11-26 03:22] VITALS: BP 136/94; PULSE 88; RESP 18; TEMP 98.7
== END 2018-11-26 03:24 | disposition home or self-care (01) ==
LOC: EC 21:46
DX: N39.0 Urinary tract infection, site not specified (principal); E11.65 Type 2 diabetes mellitus with hyperglycemia; J45.909 Unspecified asthma, uncomplicated; K21.9 Gastro-esophageal reflux disease without esophagitis; Z79.899 Other long term (current) drug therapy; Z88.8 Allergy status to other drugs, medicaments and biological substances; Z91.040 Latex allergy status; Z88.0 Allergy status to penicillin; Z91.048 Other nonmedicinal substance allergy status; Z88.6 Allergy status to analgesic agent; Z91.038 Other insect allergy status; Z88.2 Allergy status to sulfonamides; Z88.5 Allergy status to narcotic agent
CPT/HCPCS: 36415; 80053; 82150; 83690; 85025; 81001; 76705; 99284; 96374; 96361 ×2; J0696

== ENCOUNTER → 2019-01-02 | Outpatient (CLI) | payer OTHER ==
[2019-01-02 08:42] LABS: Basophils # (A) 0.1 k/uL (0-0.2); Basophils % (A) 1 %; Eosinophils # (A) 0.2 k/uL (0-0.7); Eosinophils % (A) 2 %; Lymphocytes # (A) 4.3 k/uL (1.0-4.8); Lymphocytes % (A) 55 %; MCH 32.3 pg (25.0-35.0); MCHC 34.9 g/dL (31.0-37.0); MCV 92.5 fL (80.0-100.0); Mean Platelet Volume 8.2; Monocytes # (A) 0.3 k/uL (0-1.0); Monocytes % (A) 4 %; Neutrophils # (A) 2.8 k/uL (1.3-7.7); Neutrophils % (A) 36 %; Platelet Count 224 k/uL (150-450); RBC 4.65 m/uL (3.80-5.40); RDW 14.9 % (11.5-15.5); WBC 7.8 k/uL (3.8-10.6)
[2019-01-02 16:58] LABS: Folate, Serum 10.6 ng/mL; Vitamin D 25 Hydroxy 8.7 ng/mL (30.0-100.0)
[2019-01-02 18:43] LABS: ALT 58 U/L (8-44); AST 49 U/L (13-35); African American GFR (CKD) 89.4 (60.0-200.0); Albumin/Globulin Ratio 1.83 (1.60-3.17); Alkaline Phosphatase 73 U/L (41-126); Calcium 10.2 mg/dL (8.7-10.3); Carbon Dioxide 20.9 mmol/L (21.6-31.8); Chloride 108 mmol/L (96-109); Chol/HDL Ratio 6.97; Cholesterol 258 mg/dL (0-200); Globulin 2.4 g/dL (1.6-3.3); Glucose 187 mg/dL (70-110); Potassium 3.7 mmol/L (3.5-5.5); Sodium 142 mmol/L (135-145); Total Bilirubin 0.3 mg/dL (0.2-1.2); Total Protein 6.8 g/dL (6.2-8.2); Uric Acid 7.2 mg/dL (2.9-7.7)
== END | disposition home or self-care (01) ==
LOC: LABWHC1 07:55
PROVIDERS: ATTEND Family Medicine
DX: E11.65 Type 2 diabetes mellitus with hyperglycemia (principal); R42 Dizziness and giddiness; E78.2 Mixed hyperlipidemia; Z86.69 Personal history of other diseases of the nervous system and sense organs
CPT/HCPCS: 36415; 80053; 80061; 82306; 82607; 82746; 83721; 84439; 84443; 84550; 84681; 85025

== ENCOUNTER → 2019-01-09 | Outpatient (CLI) | payer OTHER ==
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
== END | disposition home or self-care (01) ==
LOC: RADUSWWP 15:08
PROVIDERS: ATTEND Podiatrist Foot & Ankle Surgery
DX: M79.9 Soft tissue disorder, unspecified (principal)

== ENCOUNTER → 2019-01-23 | Outpatient (CLI) | payer OTHER ==
--- NOTE | 2019-01-24 07:56 | MR ---
EXAMINATION TYPE: MR brain wo con DATE OF EXAM: 01/23/2019 COMPARISON: None HISTORY: R 42 CONTRAST: Performed utilizing 0 mL intravenous Gadavist gadolinium contrast. TECHNIQUE: Multiplanar, multiecho imaging on a 3.0 Venus magnet is performed through the brain. Stud y is performed within 24 hours of arrival to the hospital. The craniovertebral junction is normal. The pituitary is normal. Optic chiasm as visualized is norm al. Diffusion-weighted imaging is performed. No abnormal hyperintensity is present to suggest an acute i ntracranial infarct or acute ischemic change. There are scattered punctate areas of hyperintensity on T2 and Inversion Recovery weighted sequences which are non-specific but can be related to microvascular ischemic changes. Ventricles and sulci are appropriate for the patient age. IMPRESSIONS: 1. Unremarkable MRI brain.
== END | disposition home or self-care (01) ==
LOC: RADMRIMAIN 15:17
PROVIDERS: ATTEND Family Medicine
DX: R42 Dizziness and giddiness (principal); Z86.69 Personal history of other diseases of the nervous system and sense organs
CPT/HCPCS: 70551

== ENCOUNTER 2019-02-07 23:09 | Emergency (ER) | payer OTHER ==
[2019-02-07] MEDS ORDERED: IBUPROFEN 600 MG TAB PO STA (23:24)
[2019-02-07] MEDS ORDERED: ACETAMINOPHEN TAB 325 MG TAB PO STA (23:24)
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
[2019-02-08 01:04] VITALS: BP 122/98; PULSE 104; RESP 20; TEMP 98.2
== END 2019-02-08 01:04 | disposition home or self-care (01) ==
LOC: EC 23:09
DX: S60.811A Abrasion of right wrist, initial encounter (principal); M79.641 Pain in right hand; J45.909 Unspecified asthma, uncomplicated; E11.9 Type 2 diabetes mellitus without complications; K21.9 Gastro-esophageal reflux disease without esophagitis; Z88.0 Allergy status to penicillin; Z88.2 Allergy status to sulfonamides; Z88.5 Allergy status to narcotic agent; Z88.6 Allergy status to analgesic agent; Z88.8 Allergy status to other drugs, medicaments and biological substances; Z91.030 Bee allergy status; Z91.038 Other insect allergy status; Z91.040 Latex allergy status; Z79.84 Long term (current) use of oral hypoglycemic drugs; Z79.899 Other long term (current) drug therapy; Z86.69 Personal history of other diseases of the nervous system and sense organs; V43.52XA Car driver injured in collision with other type car in traffic accident, initial encounter; Y92.410 Unspecified street and highway as the place of occurrence of the external cause
CPT/HCPCS: 29125; 99284

== ENCOUNTER 2019-03-05 21:03 | Emergency (ER) | payer OTHER ==
[2019-03-05] MEDS ORDERED: SODIUM CHLORIDE 0.9% 1,000 ML IV STA (21:09)
[2019-03-05] MEDS ORDERED: diphenhydrAMINE 50 MG/ML 1 ML VIAL IVP STA (21:46)
[2019-03-05] MEDS ORDERED: METOCLOPRAMIDE 5 MG/ML 2 ML VIAL IVP STA (21:46)
--- NOTE | 2019-03-05 21:49 | ED ---
Headache HPI - General Chief Complaint: Headache Stated Complaint: Headache Time Seen by Provider: 03/05/19 21:09 Mode of arrival: ambulatory Limitations: no limitations - History of Present Illness Initial Comments: Patient is a 28-year-old female with a history of migraines who presents to ER today for evaluation of headache for one day duration. Patient reports this headache started yesterday, was not sudden in onset, is not the worse headache of her life, was not associated with any fevers, chills, focal neurologic deficits or meningeal signs. Headaches similar to previous migraines. Patient has taken her sumatriptan at home with minimal improvement in her headache therefore decided to come to the ER for further evaluation. - Related Data Home Medications Medication Instructions Recorded Confirmed Omeprazole [PriLOSEC] 40 mg PO HS 07/29/16 02/07/19 Propranolol HCl 20 mg PO BID 05/24/18 02/07/19 EPINEPHrine [Epipen 2-Mike] 0.3 mg IM ONCE PRN 10/16/18 02/07/19 Albuterol Inhaler [Ventolin Hfa 2 puff INHALATION RT-Q6H PRN 11/18/18 02/07/19 Inhaler] Albuterol Nebulized [Ventolin 2.5 mg INHALATION RT-Q4H PRN 11/18/18 02/07/19 Nebulized] QUEtiapine FUMARATE [SEROquel] 300 mg PO HS 11/18/18 02/07/19 Ondansetron [Zofran ODT] 4 mg PO BID PRN 02/07/19 02/07/19 Topiramate [Topamax] 50 mg PO BID 02/07/19 02/07/19 metFORMIN HCL [metFORMIN HCL ER] 750 mg PO HS 02/07/19 02/07/19 sitaGLIPtin [Januvia] 100 mg PO DAILY 02/07/19 02/07/19 Previous Rx's Medication Instructions Recorded Ibuprofen [Motrin] 600 mg PO Q8HR PRN #30 tab 02/08/19 Allergies Allergy/AdvReac Type Severity Reaction Status Date / Time haloperidol [From Haldol] Allergy Severe QUIT Verified 03/05/19 21:08 BREATHING haloperidol lactate Allergy Severe QUIT Verified 03/05/19 21:08 [From Haldol] BREATHING latex Allergy Severe RASH-THROAT Verified 03/05/19 21:08 CLOSES bee pollen Allergy Unknown Verified 03/05/19 21:08 prednisone Allergy THROAT Verified 03/05/19 21:08 SWELLS spider venom Allergy Swelling Verified 03/05/19 21:08 Sulfa (Sulfonamide Allergy THROAT Verified 03/05/19 21:08 Antibiotics) SWELLS promethazine HCl AdvReac Severe Nausea & Verified 03/05/19 21:08 [From Phenergan] Vomiting amoxicillin AdvReac Nausea & Verified 03/05/19 21:08 Vomiting codeine phosphate AdvReac Nausea & Verified 03/05/19 21:08 [From Tylenol-Codeine #3] Vomiting ketorolac tromethamine AdvReac Nausea & Verified 03/05/19 21:08 [From Toradol] Vomiting ANTS Allergy Mild Unknown Uncoded 03/05/19 21:08 WASP Allergy Unknown Uncoded 03/05/19 21:08 Review of Systems ROS Statement: Those systems with pertinent positive or pertinent negative responses have been documented in the HPI. ROS Other: All systems not noted in ROS Statement are negative. Past Medical History Past Medical History: Asthma, Diabetes Mellitus, GERD/Reflux Additional Past Medical History / Comment(s): migraines, constipation/diarrhea, degenerative disk disease, endometriosis History of Any Multi-Drug Resistant Organisms: None Reported Past Surgical History: Orthopedic Surgery Additional Past Surgical History / Comment(s): laparoscopc surgery for endometriosis, cyst removed from left foot, EGD Past Anesthesia/Blood Transfusion Reactions: Previous Problems w/ Anesthesia Additional Past Anesthesia/Blood Transfusion Reaction / Comment(s): hard to wake up for 48-72 hours after laparoscopic surgery-was in hosp. for 3 days Past Psychological History: PTSD Smoking Status: Never smoker Past Alcohol Use History: None Reported Past Drug Use History: None Reported - Past Family History Mother Family Medical History: No Reported History Additional Family Medical History / Comment(s): hx migraines Father Family Medical History: Coronary Artery Disease (CAD), Hypertension Additional Family Medical History / Comment(s): ddd, alcoholism & drug use General Exam - General Exam Comments Initial Comments: Physical Exam GENERAL: Patient is well-developed and well-nourished. Patient is nontoxic, appears mildly dehydrated, is resting comfortably in a darkened room HENT: Normocephalic, Atraumatic. Flo range of motion of the neck without meningeal signs EYES: PERRL, EOMI PULMONARY: Unlabored respirations. CARDIOVASCULAR: RRR Warm and well perfused extremities ABDOMEN: Non-distended SKIN: No rashes or bruising : Deferred NEUROLOGIC: Alert and oriented Normal speech Normal gait MUSCULOSKELETAL: Moving all extremities with no apparent injury PSYCHIATRIC: No SI/HI Limitations: no limitations Course Vital Signs 03/05/19 03/05/19 21:04 23:12 Temperature 99.2 F 98.1 F Pulse Rate 114 H 87 Respiratory 20 18 Rate Blood Pressure 116/86 110/74 O2 Sat by Pulse 97 99 Oximetry Medical Decision Making - Medical Decision Making She was seen and evaluated, patient presenting with migraine headache not responding to sumatriptan at home. Headache is consistent with previous migraines. There are no red flag symptoms. Patient has typical photophobia phonophobia. No meningeal signs. IV access was obtained patient was given IV fluids. Urine test was negative patient was given Reglan and Benadryl. Upon reevaluation patient's feeling much better like to be discharged home. She has scheduled outpatient follow-up with her neurologist Dr. Maldonado later this week. - Lab Data Lab Results 03/05/19 Range/Units 21:13 Urine HCG, Qual Not Detected (Not Detectd) Disposition Clinical Impression: Migraine headache Disposition: HOME SELF-CARE Condition: Stable Instructions (If sedation given, give patient instructions): Acute Headache (ED) Is patient prescribed a controlled substance at d/c from ED?: No Referrals: Isi Carolina MD [Primary Care Provider] - 1-2 days
[2019-03-05 23:12] VITALS: BP 110/74; PULSE 87; RESP 18; TEMP 98.1
== END 2019-03-05 23:12 | disposition home or self-care (01) ==
LOC: EC 21:03
DX: G43.909 Migraine, unspecified, not intractable, without status migrainosus (principal); E86.0 Dehydration; J45.909 Unspecified asthma, uncomplicated; E11.9 Type 2 diabetes mellitus without complications; K21.9 Gastro-esophageal reflux disease without esophagitis; Z88.0 Allergy status to penicillin; Z88.2 Allergy status to sulfonamides; Z88.5 Allergy status to narcotic agent; Z88.6 Allergy status to analgesic agent; Z88.8 Allergy status to other drugs, medicaments and biological substances; Z91.038 Other insect allergy status; Z91.040 Latex allergy status; Z79.84 Long term (current) use of oral hypoglycemic drugs; Z79.899 Other long term (current) drug therapy; Z82.0 Family history of epilepsy and other diseases of the nervous system
CPT/HCPCS: 81025; 99283; 96374; 96375; 96361 ×2; J1200; J2765

== ENCOUNTER 2019-03-20 17:18 | Emergency (ER) | payer OTHER ==
[2019-03-20 17:51] VITALS: TEMP 98.6
[2019-03-20] MEDS ORDERED: PANTOPRAZOLE 40 MG/10 ML VIAL IVP STA (18:05)
[2019-03-20] MEDS ORDERED: SODIUM CHLORIDE 0.9% 1,000 ML IV STA (18:05)
--- NOTE | 2019-03-20 18:37 | ED ---
General Adult HPI - General Chief complaint: GI Bleed Stated complaint: Abdominal pain/gi bleed Time Seen by Provider: 03/20/19 17:55 Source: patient, RN notes reviewed Mode of arrival: ambulatory Limitations: no limitations - History of Present Illness Initial comments: 28-year-old female with a past medical history of GERD, asthma, diabetes, constipation/diarrhea presents to the emergency department for a chief complaint of rectal bleeding. Patient states that today she had 2 watery bowel movements that were both followed by bright red blood. States that she has been having abdominal pain and cramping for the past day as well. Admits to nausea but states she feels like she always has nausea so is not sure if this is new. Denies fevers or chills. States she has had this pain before but has never had bleeding.Patient has no other complaints at this time including shortness of breath, chest pain, vomiting, headache, or visual changes. - Related Data Home Medications Medication Instructions Recorded Confirmed Omeprazole [PriLOSEC] 40 mg PO HS 07/29/16 02/07/19 Propranolol HCl 20 mg PO BID 05/24/18 02/07/19 EPINEPHrine [Epipen 2-Mike] 0.3 mg IM ONCE PRN 10/16/18 02/07/19 Albuterol Inhaler [Ventolin Hfa 2 puff INHALATION RT-Q6H PRN 11/18/18 02/07/19 Inhaler] Albuterol Nebulized [Ventolin 2.5 mg INHALATION RT-Q4H PRN 11/18/18 02/07/19 Nebulized] QUEtiapine FUMARATE [SEROquel] 300 mg PO HS 11/18/18 02/07/19 Ondansetron [Zofran ODT] 4 mg PO BID PRN 02/07/19 02/07/19 Topiramate [Topamax] 50 mg PO BID 02/07/19 02/07/19 metFORMIN HCL [metFORMIN HCL ER] 750 mg PO HS 02/07/19 02/07/19 sitaGLIPtin [Januvia] 100 mg PO DAILY 02/07/19 02/07/19 Previous Rx's Medication Instructions Recorded Ibuprofen [Motrin] 600 mg PO Q8HR PRN #30 tab 02/08/19 Allergies Allergy/AdvReac Type Severity Reaction Status Date / Time haloperidol [From Haldol] Allergy Severe QUIT Verified 03/05/19 21:08 BREATHING haloperidol lactate Allergy Severe QUIT Verified 03/05/19 21:08 [From Haldol] BREATHING latex Allergy Severe RASH-THROAT Verified 03/05/19 21:08 CLOSES bee pollen Allergy Unknown Verified 03/05/19 21:08 prednisone Allergy THROAT Verified 03/05/19 21:08 SWELLS spider venom Allergy Swelling Verified 03/05/19 21:08 Sulfa (Sulfonamide Allergy THROAT Verified 03/05/19 21:08 Antibiotics) SWELLS promethazine HCl AdvReac Severe Nausea & Verified 03/05/19 21:08 [From Phenergan] Vomiting amoxicillin AdvReac Nausea & Verified 03/05/19 21:08 Vomiting codeine phosphate AdvReac Nausea & Verified 03/05/19 21:08 [From Tylenol-Codeine #3] Vomiting ketorolac tromethamine AdvReac Nausea & Verified 03/05/19 21:08 [From Toradol] Vomiting ANTS Allergy Mild Unknown Uncoded 03/05/19 21:08 WASP Allergy Unknown Uncoded 03/05/19 21:08 Review of Systems ROS Statement: Those systems with pertinent positive or pertinent negative responses have been documented in the HPI. ROS Other: All systems not noted in ROS Statement are negative. Past Medical History Past Medical History: Asthma, Diabetes Mellitus, GERD/Reflux Additional Past Medical History / Comment(s): migraines, constipation/diarrhea, degenerative disk disease, endometriosis History of Any Multi-Drug Resistant Organisms: None Reported Past Surgical History: Orthopedic Surgery Additional Past Surgical History / Comment(s): laparoscopc surgery for endometriosis, cyst removed from left foot, EGD Past Anesthesia/Blood Transfusion Reactions: Previous Problems w/ Anesthesia Additional Past Anesthesia/Blood Transfusion Reaction / Comment(s): hard to wake up for 48-72 hours after laparoscopic surgery-was in hosp. for 3 days Past Psychological History: PTSD Smoking Status: Never smoker Past Alcohol Use History: None Reported Past Drug Use History: None Reported - Past Family History Mother Family Medical History: No Reported History Additional Family Medical History / Comment(s): hx migraines Father Family Medical History: Coronary Artery Disease (CAD), Hypertension Additional Family Medical History / Comment(s): ddd, alcoholism & drug use General Exam Limitations: no limitations General appearance: alert, in no apparent distress Head exam: Present: atraumatic, normocephalic, normal inspection Eye exam: Present: normal appearance, PERRL, EOMI. Absent: scleral icterus, conjunctival injection, periorbital swelling ENT exam: Present: normal exam, mucous membranes moist Neck exam: Present: normal inspection, full ROM. Absent: tenderness, meningismus, lymphadenopathy Respiratory exam: Present: normal lung sounds bilaterally. Absent: respiratory distress, wheezes, rales, rhonchi, stridor Cardiovascular Exam: Present: regular rate, normal rhythm, normal heart sounds. Absent: systolic murmur, diastolic murmur, rubs, gallop, clicks GI/Abdominal exam: Present: soft, tenderness (mild LLQ tenderness, no RLQ tenderness, no upper abd tenderness), normal bowel sounds. Absent: distended, guarding, rebound, rigid Neurological exam: Present: alert Psychiatric exam: Present: normal affect, normal mood Course Vital Signs 03/20/19 17:49 Temperature 98.6 F Pulse Rate 104 H Respiratory 19 Rate Blood Pressure 112/82 O2 Sat by Pulse 100 Oximetry Medical Decision Making - Medical Decision Making On exam patient is well-appearing. Minimal left lower quadrant tenderness which patient has had several times before. Patient has also had increased nausea as well as 2 episodes of diarrhea today. She did have 2 episodes of bright red blood per rectum. Patient is not actively bleeding at this time but does have an positive occult blood. Patient is hemodynamically stable. Vitals are stable. CMP was obtained which was unremarkable. Urinalysis unremarkable howev er culture will be sent. X-ray KUB shows a nonacute abdomen. We were unable to obtain CBC today. Patient does not want any more needle sticks to obtain this. I do agree patient she is hemodynamically stable and can be discharged home to follow up with primary care as well as her GI doctor. She states she has an appointment in 2 days with primary care. She'll return here should any worsening symptoms. - Lab Data Result diagrams: 03/20/19 18:30 Lab Results 03/20/19 03/20/19 03/20/19 Range/Units 18:30 18:30 18:30 Sodium 140 (137-145) mmol/L Potassium 4.3 (3.5-5.1) mmol/L Chloride 110 H (98-107) mmol/L Carbon Dioxide 18 L (22-30) mmol/L Anion Gap 12 mmol/L BUN 8 (7-17) mg/dL Creatinine 0.68 (0.52-1.04) mg/dL Est GFR (CKD-EPI)AfAm >90 (>60 ml/min/1.73 sqM) Est GFR (CKD-EPI)NonAf >90 (>60 ml/min/1.73 sqM) Glucose 158 H (74-99) mg/dL Calcium 10.7 H (8.4-10.2) mg/dL Total Bilirubin 0.5 (0.2-1.3) mg/dL AST 71 H (14-36) U/L ALT 62 H (9-52) U/L Alkaline Phosphatase 83 (38-126) U/L Total Protein 7.9 (6.3-8.2) g/dL Albumin 4.6 (3.5-5.0) g/dL Amylase 33 (30-110) U/L Lipase 209 (23-300) U/L Urine Color Yellow Urine Appearance Clear (Clear) Urine pH 6.0 (5.0-8.0) Ur Specific [place] 1.017 (1.001-1.035) Urine Protein Negative (Negative) Urine Glucose (UA) 3+ H (Negative) Urine Ketones Negative (Negative) Urine Blood Negative (Negative) Urine Nitrite Negative (Negative) Urine Bilirubin Negative (Negative) Urine Urobilinogen <2.0 (<2.0) mg/dL Ur Leukocyte Esterase Small H (Negative) Urine RBC 1 (0-5) /hpf Urine WBC 7 H (0-5) /hpf Ur Squamous Epith Cells 3 (0-4) /hpf Urine Bacteria Many H (None) /hpf Hyaline Casts 1 (0-2) /lpf Urine Mucus Occasional H (None) /hpf Urine HCG, Qual Not Detected (Not Detectd) Stool Occult Blood (Negative) 03/20/19 Range/Units 18:30 Sodium (137-145) mmol/L Potassium (3.5-5.1) mmol/L Chloride (98-107) mmol/L Carbon Dioxide (22-30) mmol/L Anion Gap mmol/L BUN (7-17) mg/dL Creatinine (0.52-1.04) mg/dL Est GFR (CKD-EPI)AfAm (>60 ml/min/1.73 sqM) Est GFR (CKD-EPI)NonAf (>60 ml/min/1.73 sqM) Glucose (74-99) mg/dL Calcium (8.4-10.2) mg/dL Total Bilirubin (0.2-1.3) mg/dL AST (14-36) U/L ALT (9-52) U/L Alkaline Phosphatase (38-126) U/L Total Protein (6.3-8.2) g/dL Albumin (3.5-5.0) g/dL Amylase (30-110) U/L Lipase (23-300) U/L Urine Color Urine Appearance (Clear) Urine pH (5.0-8.0) Ur Specific [place] (1.001-1.035) Urine Protein (Negative) Urine Glucose (UA) (Negative) Urine Ketones (Negative) Urine Blood (Negative) Urine Nitrite (Negative) Urine Bilirubin (Negative) Urine Urobilinogen (<2.0) mg/dL Ur Leukocyte Esterase (Negative) Urine RBC (0-5) /hpf Urine WBC (0-5) /hpf Ur Squamous Epith Cells (0-4) /hpf Urine Bacteria (None) /hpf Hyaline Casts (0-2) /lpf Urine Mucus (None) /hpf Urine HCG, Qual (Not Detectd) Stool Occult Blood Positive H (Negative) Disposition Clinical Impression: Hematochezia Disposition: HOME SELF-CARE Condition: Good Instructions (If sedation given, give patient instructions): Gastrointestinal Bleeding (ED), Acute Diarrhea (ED) Additional Instructions: Please follow up with primary care at your appointment in 2 days. Follow-up with your GI doctor as well. Please return to the emergency department if you have any worsening symptoms. Is patient prescribed a controlled substance at d/c from ED?: No Referrals: Isi Carolina MD [Primary Care Provider] - 1-2 days Time of Disposition: 19:46
[2019-03-20 18:55] LABS: Appearance,Urine Clear (Clear); Bacteria,Urine Many /hpf; Bilirubin,Urine Negative (Negative); Blood,Urine Negative (Negative); Color,Urine Yellow; Glucose,Urine (UA) 3+ (Negative); Hyaline Casts,Urine 1 /lpf (0-2); Ketones,Urine Negative (Negative); Leukocyte Esterase,Urine Small (Negative); Mucus,Urine Occasional /hpf; Nitrite,Urine Negative (Negative); Protein,Urine Negative (Negative); RBC,Urine 1 /hpf (0-5); Specific Gravity,Urine 1.017 (1.001-1.035); Squamous Epithelial Cell,Urine 3 /hpf (0-4); Urobilinogen,Urine <2.0 mg/dL (<2.0)
[2019-03-20 18:56] LABS: ALT 62 U/L (9-52); AST 71 U/L (14-36); African American GFR (CKD) >90 (>60 ml/min/1.73 sqM); Albumin 4.6 g/dL (3.5-5.0); Alkaline Phosphatase 83 U/L (38-126); Amylase 33 U/L (30-110); Anion Gap 12 mmol/L; Blood Urea Nitrogen 8 mg/dL (7-17); Calcium 10.7 mg/dL (8.4-10.2); Carbon Dioxide 18 mmol/L (22-30); Chloride 110 mmol/L (98-107); Glucose 158 mg/dL (74-99); Non-African American GFR(CKD) >90 (>60 ml/min/1.73 sqM); Potassium 4.3 mmol/L (3.5-5.1); Sodium 140 mmol/L (137-145); Total Bilirubin 0.5 mg/dL (0.2-1.3); Total Protein 7.9 g/dL (6.3-8.2)
--- NOTE | 2019-03-20 19:31 | XR ---
Abdomen. History pain. Comparison 11/28/2018. FINDINGS: 2 views upright were obtained. There is no sign of intestinal obstruction or pneumoperitoneum. Fecal pattern is normal. There is no evidence of a mass. There are no pathologic calcifications over the ki dneys. Lung bases are clear. IMPRESSION: Nonacute abdomen. No change.
[2019-03-20 20:39] VITALS: BP 123/84; PULSE 98; RESP 18
== END 2019-03-20 20:40 | disposition home or self-care (01) ==
LOC: EC 17:18
DX: K92.1 Melena (principal); R11.0 Nausea; R19.7 Diarrhea, unspecified; R10.9 Unspecified abdominal pain; J45.909 Unspecified asthma, uncomplicated; E11.9 Type 2 diabetes mellitus without complications; K21.9 Gastro-esophageal reflux disease without esophagitis; F43.10 Post-traumatic stress disorder, unspecified; Z88.0 Allergy status to penicillin; Z88.2 Allergy status to sulfonamides; Z88.5 Allergy status to narcotic agent; Z88.6 Allergy status to analgesic agent; Z88.8 Allergy status to other drugs, medicaments and biological substances; Z91.030 Bee allergy status; Z91.038 Other insect allergy status; Z91.040 Latex allergy status; Z79.84 Long term (current) use of oral hypoglycemic drugs; Z79.899 Other long term (current) drug therapy; Z86.69 Personal history of other diseases of the nervous system and sense organs
CPT/HCPCS: 36415; 74018; 80053; 81001; 81025; 82150; 82272; 83690; 99283

== ENCOUNTER 2019-03-24 10:22 | Emergency (ER) | payer OTHER ==
[2019-03-24] MEDS ORDERED: ONDANSETRON 4 MG/2 ML VIAL IVP STA (10:41)
[2019-03-24] MEDS ORDERED: PANTOPRAZOLE 40 MG/10 ML VIAL IVP STA (10:41)
[2019-03-24] MEDS ORDERED: SODIUM CHLORIDE 0.9% 1,000 ML IV STA (10:41)
--- NOTE | 2019-03-24 10:46 | ED ---
Abdominal Pain HPI - General Chief Complaint: Abdominal Pain Stated Complaint: Abd Pain Time Seen by Provider: 03/24/19 10:33 Source: patient Mode of arrival: ambulatory Limitations: no limitations - History of Present Illness Initial Comments: patient is a 28-year-old female with history of IBS, GERD and diabetes presenting to the emergency department with a chief complaint of abdominal pain.patient was in the ED 5 days ago and KUB was obtained showing nonacute abdomen. she went to her primary care 2 days ago and was advised to go to the ED for CT imaging if the pain does not resolve. She states the pain is in the left upper quadrant region there is constant and throbbing. She also reports continuous nausea although this is her baseline and she sees a GI specialist for this. Patient does state Zofran at home for continuous nausea. Denies v omiting. He reports that she had a rectal bleed about 5 days ago which has since resolved. Reports the pain is not related to by mouth intake. denies urinary or vaginal symptoms. Denies hematuria, hematochezia or melena. Denies fevers or chills. - Related Data Home Medications Medication Instructions Recorded Confirmed Omeprazole [PriLOSEC] 40 mg PO HS 07/29/16 02/07/19 Propranolol HCl 20 mg PO BID 05/24/18 02/07/19 EPINEPHrine [Epipen 2-Mike] 0.3 mg IM ONCE PRN 10/16/18 02/07/19 Albuterol Inhaler [Ventolin Hfa 2 puff INHALATION RT-Q6H PRN 11/18/18 02/07/19 Inhaler] Albuterol Nebulized [Ventolin 2.5 mg INHALATION RT-Q4H PRN 11/18/18 02/07/19 Nebulized] QUEtiapine FUMARATE [SEROquel] 300 mg PO HS 11/18/18 02/07/19 Ondansetron [Zofran ODT] 4 mg PO BID PRN 02/07/19 02/07/19 Topiramate [Topamax] 50 mg PO BID 02/07/19 02/07/19 metFORMIN HCL [metFORMIN HCL ER] 750 mg PO HS 02/07/19 02/07/19 sitaGLIPtin [Januvia] 100 mg PO DAILY 02/07/19 02/07/19 Previous Rx's Medication Instructions Recorded Ibuprofen [Motrin] 600 mg PO Q8HR PRN #30 tab 02/08/19 Allergies Allergy/AdvReac Type Severity Reaction Status Date / Time haloperidol [From Haldol] Allergy Severe QUIT Verified 03/24/19 10:29 BREATHING haloperidol lactate Allergy Severe QUIT Verified 03/24/19 10:29 [From Haldol] BREATHING latex Allergy Severe RASH-THROAT Verified 03/24/19 10:29 CLOSES bee pollen Allergy Unknown Verified 03/24/19 10:29 prednisone Allergy THROAT Verified 03/24/19 10:29 SWELLS spider venom Allergy Swelling Verified 03/24/19 10:29 Sulfa (Sulfonamide Allergy THROAT Verified 03/24/19 10:29 Antibiotics) SWELLS promethazine HCl AdvReac Severe Nausea & Verified 03/24/19 10:29 [From Phenergan] Vomiting amoxicillin AdvReac Nausea & Verified 03/24/19 10:29 Vomiting codeine phosphate AdvReac Nausea & Verified 03/24/19 10:29 [From Tylenol-Codeine #3] Vomiting ketorolac tromethamine AdvReac Nausea & Verified 03/24/19 10:29 [From Toradol] Vomiting ANTS Allergy Mild Unknown Uncoded 03/24/19 10:29 WASP Allergy Unknown Uncoded 03/24/19 10:29 Review of Systems ROS Statement: Those systems with pertinent positive or pertinent negative responses have been documented in the HPI. ROS Other: All systems not noted in ROS Statement are negative. Past Medical History Past Medical History: Asthma, Diabetes Mellitus, GERD/Reflux Additional Past Medical History / Comment(s): migraines, constipation/diarrhea, degenerative disk disease, endometriosis History of Any Multi-Drug Resistant Organisms: None Reported Past Surgical History: Orthopedic Surgery Additional Past Surgical History / Comment(s): laparoscopc surgery for endometriosis, cyst removed from left foot, EGD Past Anesthesia/Blood Transfusion Reactions: Previous Problems w/ Anesthesia Additional Past Anesthesia/Blood Transfusion Reaction / Comment(s): hard to wake up for 48-72 hours after laparoscopic surgery-was in hosp. for 3 days Past Psychological History: PTSD Smoking Status: Never smoker Past Alcohol Use History: None Reported Past Drug Use History: None Reported - Past Family History Mother Family Medical History: No Reported History Additional Family Medical History / Comment(s): hx migraines Father Family Medical History: Coronary Artery Disease (CAD), Hypertension Additional Family Medical History / Comment(s): ddd, alcoholism & drug use General Exam Limitations: no limitations General appearance: alert, in no apparent distress Head exam: Present: atraumatic, normocephalic, normal inspection Eye exam: Present: normal appearance Pupils: Present: normal accommodation Neck exam: Present: normal inspection, full ROM Respiratory exam: Present: normal lung sounds bilaterally Cardiovascular Exam: Present: regular rate, normal rhythm, normal heart sounds GI/Abdominal exam: Present: soft, tenderness (LUQ ), normal bowel sounds. Absent: distended, guarding, rebound, rigid, hyperactive bowel sounds, hypoactive bowel sounds, organomegaly, mass, bruit, hernia Course Vital Signs 03/24/19 03/24/19 10:27 12:21 Temperature 97.4 F L 98.7 F Pulse Rate 86 76 Respiratory 20 18 Rate Blood Pressure 108/75 113/72 O2 Sat by Pulse 99 98 Oximetry Medical Decision Making - Medical Decision Making patient is a 28-year-old female with history of IBS, GERD and diabetes prese nting to emergency department with a chief complaint of abdominal pain. patient sent to the ED per instructions from primary care to obtain imaging. On exam patient has left upper quadrant and some epigastric abdominal pain. Continuous nausea but no vomiting at this time. She denies hematuria or hematochezia or melena. CBC shows no leukocytosis.UA shows pulse for glucose which is suspect is secondary to the diabetes. CMP shows mild elevation in transaminases. Patient given antiemetics, fluids, Protonix andand Bentyl. Reevaluation patient reports some improvement symptoms although the pain is somewhat persistent. CT of abdomen and pelvis shows mild fecal retention, 2 mm renal calculus, n onobstructing. It also shows possible thickening of the colon. Otherwise no other acute pathologies. Patient also given analgesia prior to ED release. Patient advised to follow-up with primary care. Strict return parameters were thoroughly discussed the patient was understanding and agreeable. Patient given Zofran to go home with. patient is to follow-up with her GI specialist. Case discussed with physician. - Lab Data Result diagrams: 03/24/19 11:03 03/24/19 11:03 Lab Results 03/24/19 03/24/19 03/24/19 Range/Units 10:45 10:45 11:03 WBC (3.8-10.6) k/uL RBC (3.80-5.40) m/uL Hgb (11.4-16.0) gm/dL Hct (34.0-46.0) % MCV (80.0-100.0) fL MCH (25.0-35.0) pg MCHC (31.0-37.0) g/dL RDW (11.5-15.5) % Plt Count (150-450) k/uL Neutrophils % % Lymphocytes % % Monocytes % % Eosinophils % % Basophils % % Neutrophils # (1.3-7.7) k/uL Lymphocytes # (1.0-4.8) k/uL Monocytes # (0-1.0) k/uL Eosinophils # (0-0.7) k/uL Basophils # (0-0.2) k/uL Sodium 138 (137-145) mmol/L Potassium 4.6 (3.5-5.1) mmol/L Chloride 109 H (98-107) mmol/L Carbon Dioxide 18 L (22-30) mmol/L Anion Gap 11 mmol/L BUN 10 (7-17) mg/dL Creatinine 0.68 (0.52-1.04) mg/dL Est GFR (CKD-EPI)AfAm >90 (>60 ml/min/1.73 sqM) Est GFR (CKD-EPI)NonAf >90 (>60 ml/min/1.73 sqM) Glucose 227 H (74-99) mg/dL Calcium 10.2 (8.4-10.2) mg/dL Total Bilirubin 0.8 (0.2-1.3) mg/dL AST 81 H (14-36) U/L ALT 63 H (4-34) U/L Alkaline Phosphatase 87 (38-126) U/L Total Protein 7.5 (6.3-8.2) g/dL Albumin 4.3 (3.5-5.0) g/dL Amylase 37 (30-110) U/L Lipase 156 (23-300) U/L Urine Color Yellow Urine Appearance Clear (Clear) Urine pH 6.5 (5.0-8.0) Ur Specific [place] 1.022 (1.001-1.035) Urine Protein Trace H (Negative) Urine Glucose (UA) 4+ H (Negative) Urine Ketones Negative (Negative) Urine Blood Negative (Negative) Urine Nitrite Negative (Negative) Urine Bilirubin Negative (Negative) Urine Urobilinogen <2.0 (<2.0) mg/dL Ur Leukocyte Esterase Negative (Negative) Urine HCG, Qual Not Detected (Not Detectd) 03/24/19 Range/Units 11:03 WBC 6.9 (3.8-10.6) k/uL RBC 4.11 (3.80-5.40) m/uL Hgb 13.3 (11.4-16.0) gm/dL Hct 38.0 (34.0-46.0) % MCV 92.5 (80.0-100.0) fL MCH 32.3 (25.0-35.0) pg MCHC 35.0 (31.0-37.0) g/dL RDW 13.6 (11.5-15.5) % Plt Count 190 (150-450) k/uL Neutrophils % 54 % Lymphocytes % 39 % Monocytes % 4 % Eosinophils % 2 % Basophils % 1 % Neutrophils # 3.7 (1.3-7.7) k/uL Lymphocytes # 2.7 (1.0-4.8) k/uL Monocytes # 0.3 (0-1.0) k/uL Eosinophils # 0.1 (0-0.7) k/uL Basophils # 0.0 (0-0.2) k/uL Sodium (137-145) mmol/L Potassium (3.5-5.1) mmol/L Chloride (98-107) mmol/L Carbon Dioxide (22-30) mmol/L Anion Gap mmol/L BUN (7-17) mg/dL Creatinine (0.52-1.04) mg/dL Est GFR (CKD-EPI)AfAm (>60 ml/min/1.73 sqM) Est GFR (CKD-EPI)NonAf (>60 ml/min/1.73 sqM) Glucose (74-99) mg/dL Calcium (8.4-10.2) mg/dL Total Bilirubin (0.2-1.3) mg/dL AST (14-36) U/L ALT (4-34) U/L Alkaline Phosphatase (38-126) U/L Total Protein (6.3-8.2) g/dL Albumin (3.5-5.0) g/dL Amylase (30-110) U/L Lipase (23-300) U/L Urine Color Urine Appearance (Clear) Urine pH (5.0-8.0) Ur Specific [place] (1.001-1.035) Urine Protein (Negative) Urine Glucose (UA) (Negative) Urine Ketones (Negative) Urine Blood (Negative) Urine Nitrite (Negative) Urine Bilirubin (Negative) Urine Urobilinogen (<2.0) mg/dL Ur Leukocyte Esterase (Negative) Urine HCG, Qual (Not Detectd) Disposition Clinical Impression: Abdominal pain, Nausea Disposition: HOME SELF-CARE Condition: Stable Instructions (If sedation given, give patient instructions): Abdominal Pain (ED) Additional Instructions: please follow up with a GI specialist. Please return to emergency department if symptoms worsen. Continue using Zofran and when nauseous. Is patient prescribed a controlled substance at d/c from ED?: No Referrals: Isi Carolina MD [Primary Care Provider] - 1-2 days Time of Disposition: 12:45
[2019-03-24 11:20] LABS: Appearance,Urine Clear (Clear); Bilirubin,Urine Negative (Negative); Blood,Urine Negative (Negative); Color,Urine Yellow; Glucose,Urine (UA) 4+ (Negative); Ketones,Urine Negative (Negative); Leukocyte Esterase,Urine Negative (Negative); Nitrite,Urine Negative (Negative); PH, Urine 6.5 (5.0-8.0); Protein,Urine Trace (Negative); Specific Gravity,Urine 1.022 (1.001-1.035); Urobilinogen,Urine <2.0 mg/dL (<2.0)
[2019-03-24 11:29] LABS: ALT 63 U/L (4-34); AST 81 U/L (14-36); African American GFR (CKD) >90 (>60 ml/min/1.73 sqM); Albumin 4.3 g/dL (3.5-5.0); Alkaline Phosphatase 87 U/L (38-126); Amylase 37 U/L (30-110); Anion Gap 11 mmol/L; Blood Urea Nitrogen 10 mg/dL (7-17); Calcium 10.2 mg/dL (8.4-10.2); Carbon Dioxide 18 mmol/L (22-30); Chloride 109 mmol/L (98-107); Glucose 227 mg/dL (74-99); Non-African American GFR(CKD) >90 (>60 ml/min/1.73 sqM); Potassium 4.6 mmol/L (3.5-5.1); Sodium 138 mmol/L (137-145); Total Bilirubin 0.8 mg/dL (0.2-1.3); Total Protein 7.5 g/dL (6.3-8.2)
[2019-03-24 11:53] LABS: Basophils % (A) 1 %; Eosinophils # (A) 0.1 k/uL (0-0.7); Eosinophils % (A) 2 %; HGB 13.3 gm/dL (11.4-16.0); Lymphocytes # (A) 2.7 k/uL (1.0-4.8); Lymphocytes % (A) 39 %; MCH 32.3 pg (25.0-35.0); MCV 92.5 fL (80.0-100.0); Mean Platelet Volume 8.9; Monocytes # (A) 0.3 k/uL (0-1.0); Monocytes % (A) 4 %; Neutrophils # (A) 3.7 k/uL (1.3-7.7); Neutrophils % (A) 54 %; Platelet Count 190 k/uL (150-450); RBC 4.11 m/uL (3.80-5.40); RDW 13.6 % (11.5-15.5); WBC 6.9 k/uL (3.8-10.6)
[2019-03-24 12:22] VITALS: BP 113/72; PULSE 76; RESP 18; TEMP 98.7
--- NOTE | 2019-03-24 12:23 | CT ---
EXAMINATION TYPE: CT abdomen pelvis w con DATE OF EXAM: 03/24/2019 COMPARISON: 08/08/2017 INDICATION: LUQ pain, nausea, bloody stools DLP: 2127.7 mGycm, Automated exposure control for dose reduction was used. CONTRAST: 100 mL of Isovue 300. Study performed without Oral Contrast TECHNIQUE: Axial images were obtained from above the diaphragm to the pubic rami in the axial plane a t 5 mm thick sections. Reconstructed images are reviewed on the computer in the coronal plane. FINDINGS: Limited CT sections are obtained the lung bases. The lung bases are clear. CT ABDOMEN: Liver: There is moderate fatty infiltration liver. Liver is enlarged measuring 21.9 Centimeters in craniocaudal dimension. No discrete masses are evident. Spleen: Normal Pancreas: Normal Adrenal glands: The adrenal glands are normal. Gallbladder: Normal Kidneys: No masses are evident. No hydronephrosis is present. No cysts are present. A 0.2 cm calci fication may be within the right mid kidney without evidence of obstruction. No hydronephrosis or hyd roureter is evident delayed images. Aorta: Normal Inferior vena cava: Normal. CT PELVIS: Loops of bowel within the abdomen and pelvis are normal. The study is performed without oral cont rast limiting bowel evaluation. Fecal debris is within the colon. Few diverticuli are present without evidence of acute diverticulitis. Some thickening of the distal descending colone is not excluded. T his could be due to peristalsis. Consider follow-up. Other etiologies are not excluded. Appendix: Normal as visualized. Urinary bladder: Normal. Genitourinary structures: Uterus is unremarkable. Adnexal regions appear within normal limits. Osseous structures: No suspicious lytic or sclerotic lesions. IMPRESSIONS: 1. Mild fecal retention. 2. Possible 0.2 cm nonobstructing renal calcification. 3. Some wall thickening is not excluded within the distal descending colon. Recommend follow-up evalu ation. 4. No definite etiology for left upper quadrant pain
[2019-03-24] MEDS ORDERED: MORPHINE SULFATE 4 MG/ML SYRINGE IVP STA (13:06)
== END 2019-03-24 13:10 | disposition home or self-care (01) ==
LOC: EC 10:22
DX: N20.0 Calculus of kidney (principal); R74.0 Nonspecific elevation of levels of transaminase and lactic acid dehydrogenase [LDH]; K59.00 Constipation, unspecified; K58.9 Irritable bowel syndrome, unspecified; K21.9 Gastro-esophageal reflux disease without esophagitis; E11.9 Type 2 diabetes mellitus without complications; R79.89 Other specified abnormal findings of blood chemistry; F43.10 Post-traumatic stress disorder, unspecified; Z79.51 Long term (current) use of inhaled steroids; Z79.84 Long term (current) use of oral hypoglycemic drugs; Z79.899 Other long term (current) drug therapy; Z88.8 Allergy status to other drugs, medicaments and biological substances; Z91.040 Latex allergy status; Z91.030 Bee allergy status; Z88.2 Allergy status to sulfonamides; Z91.048 Other nonmedicinal substance allergy status; Z88.0 Allergy status to penicillin; Z88.5 Allergy status to narcotic agent; Z88.6 Allergy status to analgesic agent
CPT/HCPCS: 99284 ×2; 96374 ×2; 96375 ×3; 96361 ×3; 36415; 80053; 82150; 83690; 85025; 81003; 81025; 74177; J2270; J2405; C9113; Q9967

== ENCOUNTER 2019-04-14 17:18 | Emergency (ER) | payer OTHER ==
[2019-04-14 18:16] VITALS: BP 120/89; PULSE 94; RESP 18; TEMP 98.9
--- NOTE | 2019-04-14 19:00 | XR ---
EXAMINATION TYPE: XR lumbar spine 2 or 3V DATE OF EXAM: 04/14/2019 COMPARISON: None HISTORY: Lower back pain TECHNIQUE: Three-view lumbar spine FINDINGS: Right transverse process L1 pedicle appears to be articulating. Lumbar spine is otherwise normal. Disc heights are preserved. Vertebral body heights are preserved. A lignment is normal. There 5 lumbar-type vertebral bodies. IMPRESSION: 1. No acute abnormality lumbar spine
--- NOTE | 2019-04-14 20:00 | ED ---
Back Pain HPI - General Chief Complaint: Back Pain/Injury Stated Complaint: fall/back pain Time Seen by Provider: 04/14/19 18:28 Source: patient Limitations: no limitations - History of Present Illness Initial Comments: 28-year-old female presenting today for chief complaint of left-sided low back pain patient states she fell off the bed the night before and patient has had left lower back pain since, her home muscle accident doesn't seem to help. Patient denies any loss of bowel bladder control urinary retention IV drug use history of cancer history of chronic steroid use loss of sensation or weakness of the lower extremities. Remaining review of systems negative patient denies any injury to the head and neck upper back. Patient appears well is ambulatory upon arrival no other complaints - Related Data Home Medications Medication Instructions Recorded Confirmed Omeprazole [PriLOSEC] 40 mg PO HS 07/29/16 02/07/19 Propranolol HCl 20 mg PO BID 05/24/18 02/07/19 EPINEPHrine [Epipen 2-Mike] 0.3 mg IM ONCE PRN 10/16/18 02/07/19 Albuterol Inhaler [Ventolin Hfa 2 puff INHALATION RT-Q6H PRN 11/18/18 02/07/19 Inhaler] Albuterol Nebulized [Ventolin 2.5 mg INHALATION RT-Q4H PRN 11/18/18 02/07/19 Nebulized] QUEtiapine FUMARATE [SEROquel] 300 mg PO HS 11/18/18 02/07/19 Ondansetron [Zofran ODT] 4 mg PO BID PRN 02/07/19 02/07/19 Topiramate [Topamax] 50 mg PO BID 02/07/19 02/07/19 metFORMIN HCL [metFORMIN HCL ER] 750 mg PO HS 02/07/19 02/07/19 sitaGLIPtin [Januvia] 100 mg PO DAILY 02/07/19 02/07/19 Previous Rx's Medication Instructions Recorded Ibuprofen [Motrin] 600 mg PO Q8HR PRN #30 tab 02/08/19 Allergies Allergy/AdvReac Type Severity Reaction Status Date / Time haloperidol [From Haldol] Allergy Severe QUIT Verified 04/14/19 18:14 BREATHING haloperidol lactate Allergy Severe QUIT Verified 04/14/19 18:14 [From Haldol] BREATHING latex Allergy Severe RASH-THROAT Verified 04/14/19 18:14 CLOSES bee pollen Allergy Unknown Verified 04/14/19 18:14 prednisone Allergy THROAT Verified 04/14/19 18:14 SWELLS spider venom Allergy Swelling Verified 04/14/19 18:14 Sulfa (Sulfonamide Allergy THROAT Verified 04/14/19 18:14 Antibiotics) SWELLS promethazine HCl AdvReac Severe Nausea & Verified 04/14/19 18:14 [From Phenergan] Vomiting amoxicillin AdvReac Nausea & Verified 04/14/19 18:14 Vomiting codeine phosphate AdvReac Nausea & Verified 04/14/19 18:14 [From Tylenol-Codeine #3] Vomiting ketorolac tromethamine AdvReac Nausea & Verified 04/14/19 18:14 [From Toradol] Vomiting ANTS Allergy Mild Unknown Uncoded 03/24/19 10:29 WASP Allergy Unknown Uncoded 03/24/19 10:29 Review of Systems ROS Statement: Those systems with pertinent positive or pertinent negative responses have been documented in the HPI. ROS Other: All systems not noted in ROS Statement are negative. Past Medical History Past Medical History: Asthma, Diabetes Mellitus, GERD/Reflux Additional Past Medical History / Comment(s): migraines, constipation/diarrhea, degenerative disk disease, endometriosis History of Any Multi-Drug Resistant Organisms: None Reported Past Surgical History: Orthopedic Surgery Additional Past Surgical History / Comment(s): laparoscopc surgery for endometriosis, cyst removed from left foot, EGD Past Anesthesia/Blood Transfusion Reactions: Previous Problems w/ Anesthesia Additional Past Anesthesia/Blood Transfusion Reaction / Comment(s): hard to wake up for 48-72 hours after laparoscopic surgery-was in hosp. for 3 days Past Psychological History: PTSD Smoking Status: Never smoker Past Alcohol Use History: None Reported Past Drug Use History: None Reported - Past Family History Mother Family Medical History: No Reported History Additional Family Medical History / Comment(s): hx migraines Father Family Medical History: Coronary Artery Disease (CAD), Hypertension Additional Family Medical History / Comment(s): ddd, alcoholism & drug use General Exam - General Exam Comments Initial Comments: General: The patient is awake and alert, in no distress, and does not appear acutely ill. Eye: Pupils are equal, round and reactive to light, extra-ocular movements are intact. No nystagmus. There is normal conjunctiva bilaterally. No signs of icterus. Ears, nose, mouth and throat: There are moist mucous membranes and no oral lesions. Neck: The neck is supple, there is no tenderness or JVD. Cardiovascular: There is a regular rate and rhythm. No murmur, rub or gallop is appreciated. Respiratory: Lungs are clear to auscultation, respirations are non-labored, breath sounds are equal. No wheezes, stridor, rales, or rhonchi. Musculoskeletal: Normal inspection of the cervicothoracic and lumbar spine no midline tenderness. Sided paravertebral tenderness of the lumbar spine. No hip pain negative logroll. Full sensation of the lower extremities equal comparison bilaterally including the saddle region. Strength equal comparison bilateral to lower extremities with +2 dorsalis pedis pulses equal comparison. Neurological: A&O x 3. CN II-XII intact grossly, There are no obvious motor or sensory deficits. Coordination appears grossly intact. Speech is normal. Skin: Skin is warm and dry and no rashes or lesions are noted. Psychiatric: Cooperative, appropriate mood & affect, normal judgment. Limitations: no limitations Course Vital Signs 04/14/19 18:14 Temperature 98.9 F Pulse Rate 94 Respiratory 18 Rate Blood Pressure 120/89 O2 Sat by Pulse 99 Oximetry Medical Decision Making - Medical Decision Making 28-year-old female presented for low back pain after fall. Left sided paravertebral tenderness. No midline. X-ray negative for acute process. No neurovascular deficits at this time feel patient is stable for discharge with outpatient primary care follow-up patient may use home muscle relaxant. She states she would like to attempt taking Tylenol No. 3 again as her home medicati ons of Tylenol and ibuprofen didn't seem to be working. Patient is aware that this may cause the adverse reaction such as vomiting and nausea that she experienced in the past with codeine. Case discussed with Dr. Taylor who is agreeable to care plan and discharge Disposition Clinical Impression: Fall, Low back pain Disposition: HOME SELF-CARE Condition: Good Instructions (If sedation given, give patient instructions): Acute Low Back Pain (ED) Additional Instructions: Please use medication as discussed. Please follow-up with family doctor in the next 2 days. Please return to emergency room if the symptoms increase or worsen or for any other concerns. Is patient prescribed a controlled substance at d/c from ED?: No Referrals: Isi Carolina MD [Primary Care Provider] - 1-2 days Time of Disposition: 19:59
[2019-04-14] MEDS ORDERED: ACET/COD 300 MG/30 MG STARTER PACK 6 TAB BTL PO STA (20:01)
== END 2019-04-14 20:26 | disposition home or self-care (01) ==
LOC: EC 17:18
DX: M54.5 Low back pain (principal); K21.9 Gastro-esophageal reflux disease without esophagitis; J45.909 Unspecified asthma, uncomplicated; E11.9 Type 2 diabetes mellitus without complications; Z79.84 Long term (current) use of oral hypoglycemic drugs; Z79.899 Other long term (current) drug therapy; Z88.8 Allergy status to other drugs, medicaments and biological substances; Z91.040 Latex allergy status; Z91.030 Bee allergy status; Z88.2 Allergy status to sulfonamides; Z88.0 Allergy status to penicillin; Z88.5 Allergy status to narcotic agent; Z88.6 Allergy status to analgesic agent; Z91.09 Other allergy status, other than to drugs and biological substances; W06.XXXA Fall from bed, initial encounter
CPT/HCPCS: 72100; 99283

== ENCOUNTER 2019-04-24 15:39 | Emergency (ER) | payer OTHER ==
[2019-04-24 16:20] VITALS: BP 134/83; PULSE 92; RESP 18; TEMP 98.2
--- NOTE | 2019-04-24 16:37 | ED ---
Fall HPI - General Chief Complaint: Fall Stated Complaint: fall/home Time Seen by Provider: 04/24/19 16:23 Source: patient, RN notes reviewed, old records reviewed Mode of arrival: ambulatory - History of Present Illness Initial Comments: Patient is a 28-year-old female presents emergency department today for evaluation for concern for head injury, prolonged headache. She reports that she hit her head on a nightstand after she tripped, fell out of bed. Patient reports that she didn't lose consciousness. She's had a prolonged headache since that time. Patient is on a blood thinners. Patient reports that she did take some Tylenol and Zofran and is complaining of nausea. Patient states that she has had a fall in her lower back approximately 10 days ago from doing sim ilar thing of tripping on the bed. - Related Data Home Medications Medication Instructions Recorded Confirmed Omeprazole [PriLOSEC] 40 mg PO HS 07/29/16 02/07/19 Propranolol HCl 20 mg PO BID 05/24/18 02/07/19 EPINEPHrine [Epipen 2-Mike] 0.3 mg IM ONCE PRN 10/16/18 02/07/19 Albuterol Inhaler [Ventolin Hfa 2 puff INHALATION RT-Q6H PRN 11/18/18 02/07/19 Inhaler] Albuterol Nebulized [Ventolin 2.5 mg INHALATION RT-Q4H PRN 11/18/18 02/07/19 Nebulized] QUEtiapine FUMARATE [SEROquel] 300 mg PO HS 11/18/18 02/07/19 Ondansetron [Zofran ODT] 4 mg PO BID PRN 02/07/19 02/07/19 Topiramate [Topamax] 50 mg PO BID 02/07/19 02/07/19 metFORMIN HCL [metFORMIN HCL ER] 750 mg PO HS 02/07/19 02/07/19 sitaGLIPtin [Januvia] 100 mg PO DAILY 02/07/19 02/07/19 Previous Rx's Medication Instructions Recorded Ibuprofen [Motrin] 600 mg PO Q8HR PRN #30 tab 02/08/19 Ondansetron Odt [Zofran Odt] 4 mg PO Q8HR PRN #12 tab 04/24/19 Allergies Allergy/AdvReac Type Severity Reaction Status Date / Time haloperidol [From Haldol] Allergy Severe QUIT Verified 04/24/19 16:18 BREATHING haloperidol lactate Allergy Severe QUIT Verified 04/24/19 16:18 [From Haldol] BREATHING latex Allergy Severe RASH-THROAT Verified 04/24/19 16:18 CLOSES bee pollen Allergy Unknown Verified 04/24/19 16:18 prednisone Allergy THROAT Verified 04/24/19 16:18 SWELLS spider venom Allergy Swelling Verified 04/24/19 16:18 Sulfa (Sulfonamide Allergy THROAT Verified 04/24/19 16:18 Antibiotics) SWELLS promethazine HCl AdvReac Severe Nausea & Verified 04/24/19 16:18 [From Phenergan] Vomiting amoxicillin AdvReac Nausea & Verified 04/24/19 16:18 Vomiting codeine phosphate AdvReac Nausea & Verified 04/24/19 16:18 [From Tylenol-Codeine #3] Vomiting ketorolac tromethamine AdvReac Nausea & Verified 04/24/19 16:18 [From Toradol] Vomiting ANTS Allergy Mild Unknown Uncoded 04/24/19 16:18 WASP Allergy Unknown Uncoded 04/24/19 16:18 Review of Systems ROS Statement: Those systems with pertinent positive or pertinent negative responses have been documented in the HPI. ROS Other: All systems not noted in ROS Statement are negative. Past Medical History Past Medical History: Asthma, Diabetes Mellitus, GERD/Reflux Additional Past Medical History / Comment(s): migraines, constipation/diarrhea, degenerative disk disease, endometriosis History of Any Multi-Drug Resistant Organisms: None Reported Past Surgical History: Orthopedic Surgery Additional Past Surgical History / Comment(s): laparoscopc surgery for endometriosis, cyst removed from left foot, EGD Past Anesthesia/Blood Transfusion Reactions: Previous Problems w/ Anesthesia Additional Past Anesthesia/Blood Transfusion Reaction / Comment(s): hard to wake up for 48-72 hours after laparoscopic surgery-was in hosp. for 3 days Past Psychological History: PTSD Smoking Status: Never smoker Past Alcohol Use History: None Reported Past Drug Use History: None Reported - Past Family History Mother Family Medical History: No Reported History Additional Family Medical History / Comment(s): hx migraines Father Family Medical History: Coronary Artery Disease (CAD), Hypertension Additional Family Medical History / Comment(s): ddd, alcoholism & drug use General Exam - General Exam Comments Initial Comments: 28 year old female, no distress Limitations: no limitations General appearance: alert, in no apparent distress Head exam: Present: atraumatic, normocephalic, normal inspection Eye exam: Present: normal appearance, PERRL, EOMI. Absent: scleral icterus, conjunctival injection, periorbital swelling ENT exam: Present: normal exam, mucous membranes moist Neck exam: Present: normal inspection. Absent: tenderness, meningismus, lymphadenopathy Respiratory exam: Present: normal lung sounds bilaterally. Absent: respiratory distress, wheezes, rales, rhonchi, stridor Cardiovascular Exam: Present: regular rate, normal rhythm, normal heart sounds. Absent: systolic murmur, diastolic murmur, rubs, gallop, clicks GI/Abdominal exam: Present: soft, normal bowel sounds. Absent: distended, ten derness, guarding, rebound, rigid Extremities exam: Present: normal inspection, full ROM, normal capillary refill. Absent: tenderness, pedal edema, joint swelling, calf tenderness Back exam: Present: normal inspection Neurological exam: Present: alert, oriented X3, CN II-XII intact Psychiatric exam: Present: normal affect, normal mood Skin exam: Present: warm, dry, intact, normal color. Absent: rash Course Vital Signs 04/24/19 16:18 Temperature 98.2 F Pulse Rate 92 Respiratory 18 Rate Blood Pressure 134/83 O2 Sat by Pulse 98 Oximetry Medical Decision Making - Medical Decision Making 28-year-old female presents today for minor head injury. She completed a prolonged headache, feeling dizzy. She is on blood thinners. No acute neurological deficits. I discussed risk and benefit of CAT scan. Discussed radiation. She states she is quite concerned with her prolonged headache would feel better with CT. Patient was given CT of the brain is negative for any acute process. Discussed the Patient is suffering from concussion. To continue to dose Motrin and Tylenol for headache and pain. Patient also is advised to Zofran for nausea. I discussed return parameters and following up with primary care doctor. - Radiology Data Radiology results: report reviewed Normal CT of the brain. No acute osseous lesion or evidence of acute hemorrhage or midline shift. Disposition Clinical Impression: Concussion Disposition: HOME SELF-CARE Condition: Good Instructions (If sedation given, give patient instructions): Concussion (ED) Additional Instructions: Patient monitored for the first 24 hours. Patient can rest but sending alarming on a caregivers phone to monitor and arouse him throughout the night every few hours. Patient should take Motrin and Tylenol every 3-4 hours for pain. He continues nausea medicine as prescribed for nausea. Patient should be in quiet dark place his, avoid excessive stimuli or bright lights. Prescriptions: Ondansetron Odt [Zofran Odt] 4 mg PO Q8HR PRN #12 tab PRN Reason: Nausea Is patient prescribed a controlled substance at d/c from ED?: No Referrals: Isi Carolina MD [Primary Care Provider] - 1-2 days Time of Disposition: 17:00
--- NOTE | 2019-04-24 16:55 | CT ---
EXAMINATION TYPE: CT brain wo con DATE OF EXAM: 04/24/2019 COMPARISON: 04/22/2017 HISTORY: Fall out of bed with posterior head injury. CT DLP: 1117.4 mGycm Automated exposure control for dose reduction was used. Ventricles and sulci appear normal. There is no mass effect or midline shift. There is no sign of int racranial hemorrhage. The calvarium is intact. IMPRESSION: Normal unenhanced head CT scan.
== END 2019-04-24 17:25 | disposition home or self-care (01) ==
LOC: EC 15:39
DX: S06.0X0A Concussion without loss of consciousness, initial encounter (principal); J45.909 Unspecified asthma, uncomplicated; E11.9 Type 2 diabetes mellitus without complications; K21.9 Gastro-esophageal reflux disease without esophagitis; F43.10 Post-traumatic stress disorder, unspecified; Z88.0 Allergy status to penicillin; Z88.2 Allergy status to sulfonamides; Z88.5 Allergy status to narcotic agent; Z88.6 Allergy status to analgesic agent; Z88.8 Allergy status to other drugs, medicaments and biological substances; Z91.030 Bee allergy status; Z91.038 Other insect allergy status; Z91.040 Latex allergy status; Z79.84 Long term (current) use of oral hypoglycemic drugs; Z79.01 Long term (current) use of anticoagulants; Z79.899 Other long term (current) drug therapy; Z86.69 Personal history of other diseases of the nervous system and sense organs; W06.XXXA Fall from bed, initial encounter; W22.03XA Walked into furniture, initial encounter
CPT/HCPCS: 70450; 99284

== ENCOUNTER 2019-05-07 19:46 | Inpatient (IN) | payer OTHER ==
[2019-05-07 21:13] LABS: Appearance,Urine Cloudy (Clear); Bacteria,Urine Many /hpf; Bilirubin,Urine Negative (Negative); Blood,Urine Small (Negative); Color,Urine Light Yellow; Glucose,Urine (UA) Negative (Negative); Ketones,Urine Negative (Negative); Leukocyte Esterase,Urine Small (Negative); Mucus,Urine Rare /hpf; Nitrite,Urine Negative (Negative); Protein,Urine Negative (Negative); RBC,Urine 1 /hpf (0-5); Specific Gravity,Urine 1.006 (1.001-1.035); Squamous Epithelial Cell,Urine 5 /hpf (0-4); Urobilinogen,Urine <2.0 mg/dL (<2.0); WBC,Urine 6 /hpf (0-5)
[2019-05-07 22:00] LABS: Basophils % (A) 0 %; Eosinophils # (A) 0.1 k/uL (0-0.7); Eosinophils % (A) 2 %; HGB 14.7 gm/dL (11.4-16.0); Lymphocytes # (A) 2.7 k/uL (1.0-4.8); Lymphocytes % (A) 46 %; MCH 30.9 pg (25.0-35.0); MCHC 32.6 g/dL (31.0-37.0); MCV 94.8 fL (80.0-100.0); Mean Platelet Volume 8.3; Monocytes # (A) 0.2 k/uL (0-1.0); Monocytes % (A) 4 %; Neutrophils # (A) 2.8 k/uL (1.3-7.7); Neutrophils % (A) 46 %; Platelet Count 241 k/uL (150-450); RBC 4.74 m/uL (3.80-5.40); RDW 12.8 % (11.5-15.5)
[2019-05-07 22:11] LABS: Glucose,Whole Blood 109 mg/dL (75-99)
--- NOTE | 2019-05-07 22:38 | ED ---
Abdominal Pain HPI <Jesus AlbertoMy P - Last Filed: 05/08/19 01:12> - General Source: patient Mode of arrival: ambulatory Limitations: no limitations <Stefanie Tristan - Last Filed: 05/08/19 15:14> - General Chief Complaint: Abdominal Pain Stated Complaint: L Side Abd Pain Time Seen by Provider: 05/07/19 20:26 - History of Present Illness Initial Comments: 28yo female with significant psychiatric history, type II diabetes on metformin presenting to the ER today for cc of LUQ abdominal pain and vomiting. Patient states she has been vomiting for the past 3 days, today she developed LUQ stabbing pain. She states the pain persisted into the evening she decided to present to the emergency department for further evaluation. Patient denies diarrhea fevers patient denies any chest or back pain denies shortness of breath. Patient denies any headache dizziness cough or hemoptysis. Patient denies any known splenomegaly denies sore throat. Patient denies any specific sick contacts remaining review of systems negative upon arrival patient appears well no distress. (Stefanie Tristan) - Related Data Home Medications Medication Instructions Recorded Confirmed Omeprazole [PriLOSEC] 40 mg PO HS 07/29/16 05/08/19 EPINEPHrine [Epipen 2-Mike] 0.3 mg IM ONCE PRN 10/16/18 05/08/19 QUEtiapine FUMARATE [SEROquel] 300 mg PO HS 11/18/18 05/08/19 Ondansetron [Zofran ODT] 4 mg PO Q6H PRN 02/07/19 05/08/19 Topiramate [Topamax] 50 mg PO HS 02/07/19 05/08/19 metFORMIN HCL [metFORMIN HCL ER] 750 mg PO HS 02/07/19 05/08/19 sitaGLIPtin [Januvia] 100 mg PO HS 02/07/19 05/08/19 Cyanocobalamin (Vitamin B-12) 1,000 mcg PO HS 05/08/19 05/08/19 [Vitamin B-12] Ergocalciferol [Vitamin D2] 50,000 unit PO TH 05/08/19 05/08/19 Hydrocortisone Cream 1 applic TOPICAL BID PRN 05/08/19 05/08/19 [Hydrocortisone 2.5% Cream] Ketoconazole 2% Cream [Nizoral 2%] 1 applic TOPICAL DAILY PRN 05/08/19 05/08/19 Ketoconazole 2% Shampoo [Nizoral] 1 applic TOPICAL Q3D 05/08/19 05/08/19 Propranolol HCl 40 mg PO HS 05/08/19 05/08/19 SUMAtriptan SUCCINATE [Imitrex] 50 mg PO DIRECTED PRN 05/08/19 05/08/19 Topiramate [Topamax] 50 mg PO HS 05/08/19 05/08/19 tiZANidine [Zanaflex] 4 mg PO BID PRN 05/08/19 05/08/19 Allergies Allergy/AdvReac Type Severity Reaction Status Date / Time haloperidol [From Haldol] Allergy Severe QUIT Verified 05/08/19 10:24 BREATHING haloperidol lactate Allergy Severe QUIT Verified 05/08/19 10:24 [From Haldol] BREATHING latex Allergy Severe RASH-THROAT Verified 05/08/19 10:24 CLOSES bee pollen Allergy Unknown Verified 05/08/19 10:24 prednisone Allergy THROAT Verified 05/08/19 10:24 SWELLS spider venom Allergy Swelling Verified 05/08/19 10:24 Sulfa (Sulfonamide Allergy THROAT Verified 05/08/19 10:24 Antibiotics) SWELLS tramadol Allergy Unknown Verified 05/08/19 10:24 promethazine HCl AdvReac Severe Nausea & Verified 05/08/19 10:24 [From Phenergan] Vomiting amoxicillin AdvReac Nausea & Verified 05/08/19 10:24 Vomiting codeine phosphate AdvReac Nausea & Verified 05/08/19 10:24 [From Tylenol-Codeine #3] Vomiting ANTS Allergy Mild Unknown Uncoded 05/07/19 20:07 WASP Allergy Unknown Uncoded 05/07/19 20:07 Review of Systems ROS Other: All systems not noted in ROS Statement are negative. <My Granda P - Last Filed: 05/08/19 01:12> ROS Other: All systems not noted in ROS Statement are negative. <Stefanie Tristan - Last Filed: 05/08/19 15:14> ROS Statement: Those systems with pertinent positive or pertinent negative responses have been documented in the HPI. Past Medical History Past Medical History: Asthma, Diabetes Mellitus, GERD/Reflux Additional Past Medical History / Comment(s): migraines, constipation/diarrhea, degenerative disk disease, endometriosis History of Any Multi-Drug Resistant Organisms: None Reported Past Surgical History: Orthopedic Surgery Additional Past Surgical History / Comment(s): laparoscopc surgery for endometriosis, cyst removed from left foot, EGD Past Anesthesia/Blood Transfusion Reactions: Previous Problems w/ Anesthesia Additional Past Anesthesia/Blood Transfusion Reaction / Comment(s): hard to wake up for 48-72 hours after laparoscopic surgery-was in hosp. for 3 days Past Psychological History: PTSD Smoking Status: Never smoker Past Alcohol Use History: None Reported Past Drug Use History: None Reported - Past Family History Mother Family Medical History: No Reported History Additional Family Medical History / Comment(s): hx migraines Father Family Medical History: Coronary Artery Disease (CAD), Hypertension Additional Family Medical History / Comment(s): ddd, alcoholism & drug use <Stefanie Tristan L - Last Filed: 05/08/19 15:14> General Exam Limitations: no limitations <Stefanie Tristan L - Last Filed: 05/08/19 15:14> - General Exam Comments Initial Comments: General: The patient is awake and alert, in no distress Eye: Pupils are equal, round and reactive to light, extra-ocular movements are intact. No nystagmus. There is normal conjunctiva bilaterally. No signs of icterus. Ears, nose, mouth and throat: There are moist mucous membranes and no oral lesions. Neck: The neck is supple, there is no tenderness or JVD. Cardiovascular: There is a regular rate and rhythm. No murmur, rub or gallop is appreciated. Respiratory: Lungs are clear to auscultation, respirations are non-labored, breath sounds are equal. No wheezes, stridor, rales, or rhonchi. Gastrointestinal: Soft, non-distended, epigastric and LUQ of the abdomen tendern to palpation remaining abdomen is nontender and without masses or organomegaly noted. There is no rebound or guarding present. No CVA tenderness. Bowel sounds are unremarkable. Musculoskeletal: Normal ROM, no tenderness. Strength 5/5. Sensation intact. Pulses equal bilaterally 2+. Neurological: A&O x 3. CN II-XII intact groslsly, There are no obvious motor or sensory deficits. Coordination appears grossly intact. Speech is normal. Skin: Skin is warm and dry and no rashes or lesions are noted. Psychiatric: Cooperative, appropriate mood & affect, normal judgment. (Stefanie Tristan) Course Vital Signs 05/07/19 05/08/19 20:04 01:09 Temperature 98.9 F 98.2 F Pulse Rate 95 68 Respiratory 18 19 Rate Blood Pressure 139/97 111/85 O2 Sat by Pulse 96 98 Oximetry Medical Decision Making - Lab Data Result diagrams: 05/07/19 21:31 05/07/19 23:12 <My Granda - Last Filed: 05/08/19 01:12> - Lab Data Result diagrams: 05/07/19 21:31 05/07/19 23:12 <Stefanie Tristan - Last Filed: 05/08/19 15:14> - Medical Decision Making 28-year-old female presenting for left upper quadrant abdominal pain epigastric and left upper quadrant abdominal pain on physical examination. History of vomiting. Type II diabetic. Lipase 3 times the upper limit of normal concern for pancreatitis as source. Patient does take numerous psychiatric medications which may form as a cause> CT no inflammation or masses noted of the pancreas. Patient denies alcohol abuse or known increase of triglycerides. Denies RUQ pain. US pending to r/o gallstones as source. TG's pending. Patient will be admitted NPO, with IV hydration, pain management with dilaudid. Discussed case with Dr. Burch who is agreeable to admission. (Stefanie Tristan) - Lab Data Lab Results 05/07/19 05/07/19 05/07/19 Range/Units 20:54 20:54 21:31 WBC 6.0 (3.8-10.6) k/uL RBC 4.74 (3.80-5.40) m/uL Hgb 14.7 (11.4-16.0) gm/dL Hct 45.0 (34.0-46.0) % MCV 94.8 (80.0-100.0) fL MCH 30.9 (25.0-35.0) pg MCHC 32.6 (31.0-37.0) g/dL RDW 12.8 (11.5-15.5) % Plt Count 241 (150-450) k/uL Neutrophils % 46 % Lymphocytes % 46 % Monocytes % 4 % Eosinophils % 2 % Basophils % 0 % Neutrophils # 2.8 (1.3-7.7) k/uL Lymphocytes # 2.7 (1.0-4.8) k/uL Monocytes # 0.2 (0-1.0) k/uL Eosinophils # 0.1 (0-0.7) k/uL Basophils # 0.0 (0-0.2) k/uL Sodium (137-145) mmol/L Potassium (3.5-5.1) mmol/L Chloride (98-107) mmol/L Carbon Dioxide (22-30) mmol/L Anion Gap mmol/L BUN (7-17) mg/dL Creatinine (0.52-1.04) mg/dL Est GFR (CKD-EPI)AfAm (>60 ml/min/1.73 sqM) Est GFR (CKD-EPI)NonAf (>60 ml/min/1.73 sqM) Glucose (74-99) mg/dL POC Glucose (mg/dL) (75-99) mg/dL POC Glu Pathology Collector ID Calcium (8.4-10.2) mg/dL Total Bilirubin (0.2-1.3) mg/dL AST (14-36) U/L ALT (4-34) U/L Alkaline Phosphatase (38-126) U/L Total Protein (6.3-8.2) g/dL Albumin (3.5-5.0) g/dL Triglycerides (<150) mg/dL Amylase (30-110) U/L Lipase (23-300) U/L Urine Color Light Yellow Urine Appearance Cloudy H (Clear) Urine pH 6.0 (5.0-8.0) Ur Specific [place] 1.006 (1.001-1.035) Urine Protein Negative (Negative) Urine Glucose (UA) Negative (Negative) Urine Ketones Negative (Negative) Urine Blood Small H (Negative) Urine Nitrite Negative (Negative) Urine Bilirubin Negative (Negative) Urine Urobilinogen <2.0 (<2.0) mg/dL Ur Leukocyte Esterase Small H (Negative) Urine RBC 1 (0-5) /hpf Urine WBC 6 H (0-5) /hpf Ur Squamous Epith Cells 5 H (0-4) /hpf Urine Bacteria Many H (None) /hpf Urine Mucus Rare H (None) /hpf Urine HCG, Qual Not Detected (Not Detectd) 05/07/19 05/07/19 05/07/19 Range/Units 22:09 23:12 23:12 WBC (3.8-10.6) k/uL RBC (3.80-5.40) m/uL Hgb (11.4-16.0) gm/dL Hct (34.0-46.0) % MCV (80.0-100.0) fL MCH (25.0-35.0) pg MCHC (31.0-37.0) g/dL RDW (11.5-15.5) % Plt Count (150-450) k/uL Neutrophils % % Lymphocytes % % Monocytes % % Eosinophils % % Basophils % % Neutrophils # (1.3-7.7) k/uL Lymphocytes # (1.0-4.8) k/uL Monocytes # (0-1.0) k/uL Eosinophils # (0-0.7) k/uL Basophils # (0-0.2) k/uL Sodium 141 (137-145) mmol/L Potassium 4.5 (3.5-5.1) mmol/L Chloride 112 H (98-107) mmol/L Carbon Dioxide 18 L (22-30) mmol/L Anion Gap 11 mmol/L BUN 7 (7-17) mg/dL Creatinine 0.74 (0.52-1.04) mg/dL Est GFR (CKD-EPI)AfAm >90 (>60 ml/min/1.73 sqM) Est GFR (CKD-EPI)NonAf >90 (>60 ml/min/1.73 sqM) Glucose 109 H (74-99) mg/dL POC Glucose (mg/dL) 109 H (75-99) mg/dL POC Glu Pathology Collector ID Shayy, Joanna Calcium 10.4 H (8.4-10.2) mg/dL Total Bilirubin 0.6 (0.2-1.3) mg/dL AST 106 H (14-36) U/L ALT 85 H (4-34) U/L Alkaline Phosphatase 86 (38-126) U/L Total Protein 7.8 (6.3-8.2) g/dL Albumin 4.3 (3.5-5.0) g/dL Triglycerides 508 H (<150) mg/dL Amylase 55 (30-110) U/L Lipase 915 H (23-300) U/L Urine Color Urine Appearance (Clear) Urine pH (5.0-8.0) Ur Specific [place] (1.001-1.035) Urine Protein (Negative) Urine Glucose (UA) (Negative) Urine Ketones (Negative) Urine Blood (Negative) Urine Nitrite (Negative) Urine Bilirubin (Negative) Urine Urobilinogen (<2.0) mg/dL Ur Leukocyte Esterase (Negative) Urine RBC (0-5) /hpf Urine WBC (0-5) /hpf Ur Squamous Epith Cells (0-4) /hpf Urine Bacteria (None) /hpf Urine Mucus (None) /hpf Urine HCG, Qual (Not Detectd) Disposition <My Granda P - Last Filed: 05/08/19 01:12> Is patient prescribed a controlled substance at d/c from ED?: No Time of Disposition: 00:44 Decision to Admit Reason: Admit from EC Decision Date: 05/08/19 Decision Time: 00:44 <Stefanie Tristan - Last Filed: 05/08/19 15:14> Clinical Impression: Pancreatitis Disposition: ADMITTED IP TO THIS [facility] Condition: Good
[2019-05-07] MEDS ORDERED: MORPHINE SULFATE 4 MG/ML SYRINGE IVP STA (22:40)
[2019-05-08 00:01] LABS: ALT 85 U/L (4-34); AST 106 U/L (14-36); African American GFR (CKD) >90 (>60 ml/min/1.73 sqM); Albumin 4.3 g/dL (3.5-5.0); Alkaline Phosphatase 86 U/L (38-126); Amylase 55 U/L (30-110); Anion Gap 11 mmol/L; Blood Urea Nitrogen 7 mg/dL (7-17); Calcium 10.4 mg/dL (8.4-10.2); Carbon Dioxide 18 mmol/L (22-30); Chloride 112 mmol/L (98-107); Glucose 109 mg/dL (74-99); Non-African American GFR(CKD) >90 (>60 ml/min/1.73 sqM); Potassium 4.5 mmol/L (3.5-5.1); Sodium 141 mmol/L (137-145); Total Bilirubin 0.6 mg/dL (0.2-1.3); Total Protein 7.8 g/dL (6.3-8.2)
--- NOTE | 2019-05-08 00:34 | CT ---
EXAMINATION TYPE: CT abdomen pelvis w con DATE OF EXAM: 05/08/2019 COMPARISON: 03/24/2019 HISTORY: Patient presents with LUQ pain. CT DLP: 1809.3 mGycm Automated exposure control for dose reduction was used. CONTRAST: Performed with IV Contrast, patient injected with 100mL mL of Isovue 300. CT scan abdomen and pelvis. Multiple axial sections were obtained from the diaphragm to the floor the pelvis with intravenous con trast. There is no pleural effusion. Lung bases are clear. Heart size is normal. Liver spleen stomach pancreas gallbladder appear normal. Bile ducts are not dilated. There is no adrenal mass. Kidneys show satisfactory contrast opacification. There is no hydronephrosi s. Appendix appears normal. Ureters are not dilated. There is no retroperitoneal adenopathy. Bladder distends smoothly. There is no inguinal hernia. Uterus is anteverted. There is no free fluid in the p felicity. There is no sign of a pelvic mass. There is no mesenteric edema. There is no ascites or free air. There is no evidence of a bowel obstru ction. Lumbar vertebra show no compression fracture. Bony pelvis is intact. There is no evidence of bladder mass. IMPRESSION: Normal CT scan of the abdomen and pelvis. Normal appendix. No adverse change compared to old exam.
[2019-05-08] MEDS ORDERED: NALOXONE 0.4 MG/ML 1 ML VIAL IV PRN (00:45)
[2019-05-08] MEDS: SODIUM CHLORIDE 0.9% 1,000 ML IV SCH ×4 (01:08→21:33)
[2019-05-08] MEDS: HYDROmorphone 1 MG/ML 1 ML SYRINGE IVP PRN ×6 (02:34→19:35)
[2019-05-08 07:52] LABS: Glucose,Whole Blood 113 mg/dL (75-99)
--- NOTE | 2019-05-08 08:31 | US ---
EXAMINATION TYPE: US abdomen limited DATE OF EXAM: 05/08/2019 COMPARISON: CT 2019, US 2019 CLINICAL HISTORY: assess for stones, pancreatitis. Left abdomen pain and N/V x 4 days, exam done port able. EXAM MEASUREMENTS: Liver Length: 18.0 cm Gallbladder Wall: 0.2 cm CBD: 0.3 cm Right Kidney: 9.1 x 4.4 x 4.4 cm Difficult and limited study due to patient body habitus Pancreas: tail obscured by overlying midline bowel gas Liver: measures in upper limits of normal, attenuating, heterogeneous, decreased visualization of ve ssels. These findings limit evaluation for hepatic masses. Gallbladder: wnl Evidence for sonographic Velasquez's sign: no CBD: visualized portions wnl, limited by overlying bowel gas Right Kidney: wnl IMPRESSION: 1. No sonographic evidence of cholelithiasis nor acute cholecystitis. 2. Pancreas is largely obscured by bowel gas. 3. Sonographic findings most commonly related to hepatic steatosis. Correlate with liver function gale ts.
[2019-05-08 11:53] LABS: Glucose,Whole Blood 150 mg/dL (75-99)
[2019-05-08] MEDS: diphenhydrAMINE 50 MG/ML 1 ML VIAL IVP PRN ×2 (12:32→21:35)
[2019-05-08] MEDS ORDERED: ALPRAZolam 0.25 MG TAB PO PRN (16:05)
[2019-05-08] MEDS ORDERED: SUMAtriptan SUCCINATE 50 MG TAB PO PRN (16:06)
[2019-05-08] MEDS ORDERED: tiZANidine 4 MG TAB PO PRN (16:06)
[2019-05-08] MEDS ORDERED: TRIAMCINOLONE 0.1% CREAM 80 GM TUBE TOPICAL PRN (16:06)
[2019-05-08] MEDS ORDERED: CLOTRIMAZOLE 1% CREAM 15 GM TUBE TOPICAL PRN (16:06)
[2019-05-08] MEDS ORDERED: KETOCONAZOLE 2% SHAMPOO 1 APPLIC/ML TOPICAL PRN (16:15)
--- NOTE | 2019-05-08 16:42 | XR ---
EXAMINATION TYPE: XR chest 1V portable DATE OF EXAM: 05/08/2019 CLINICAL HISTORY: Difficulty breathing and CHF progress study. TECHNIQUE: Single AP portable upright view of the chest is obtained. COMPARISON: Chest x-ray from September 17, 2018 FINDINGS: Lungs are grossly clear without pleural effusion or pneumothorax. Cardiac silhouette size remains within normal limits. Osseous structures are intact. IMPRESSION: No suspicious acute process currently. No significant change from prior.
[2019-05-08 17:22] LABS: Glucose,Whole Blood 155 mg/dL (75-99)
[2019-05-08] MEDS: INSULIN ASPART (NovoLOG) 100 UNIT/ML VIAL SQ SCH ×2 (17:36→21:27)
[2019-05-08 20:41] LABS: Glucose,Whole Blood 137 mg/dL (75-99)
[2019-05-08] MEDS ORDERED: TOPIRAMATE 50 MG PO SCH (21:00)
[2019-05-08] MEDS: PANTOPRAZOLE 40 MG/10 ML VIAL IVP SCH (21:27)
[2019-05-08] MEDS: CYANOCOBALAMIN 500 MCG TAB PO SCH (21:27)
[2019-05-08] MEDS: HEPARIN SODIUM,PORCINE 5,000 UNIT/ML 1 ML VIAL SQ SCH (21:27)
[2019-05-08] MEDS: TOPIRAMATE 25 MG TAB PO SCH (21:28)
[2019-05-08] MEDS: QUEtiapine 100 MG TAB PO SCH (21:28)
[2019-05-08] MEDS: PROPRANOLOL 40 MG TAB PO SCH (21:28)
--- NOTE | 2019-05-08 21:32 | P.CONS ---
History of Present Illness - Reason for Consult Consult date: 05/08/19 Pancreatitis Requesting physician: Teo Leblanc - Chief Complaint Abdominal pain - History of Present Illness 28-year-old female with multiple medical comorbidities including type 2 diabetes mellitus, endometriosis, GERD, fatty liver disease and IBS who presented to the hospital with complaints of abdominal pain. The patient reported abdominal pain in the left upper quadrant of her abdomen. She reports that the pain had been present over the past 2-3 days. He describes the pain as sharp in nature without radiation. She says that the pain is worse with movement and after eating. No prior episodes of similar pain, history of pancreatitis, family history of pancreatitis or new medications. Previously she had an EGD in 2015 significant for esophagitis and gastritis. In 2018 she underwent colonoscopy which was normal. Laboratory evaluation on presentation significant for a lipase of 915, amylase 55, WBC 6, hemoglobin 14.7, platelet count 241,000, triglycerides 508, total bilirubin 0.6, alkaline phosphatase 86, AST 106 and ALT 85. Computed tomography scan of the abdomen was essentially negative on presentation. She did report some associated nausea and vomiting with her symptoms. Review of Systems REVIEW OF SYSTEMS: CONSTITUTIONAL: Denies any fevers, chills, weight change or fatigue. CARDIOVASCULAR: Denies any chest pain, palpitations high or low blood pressures RESPIRATORY: Denies any shortness of breath, hemoptysis or cough. GENITOURINARY: No dysuria or hematuria. MUSCULOSKELETAL: No weakness reported. SKIN: Denies any new rashes or lesions, jaundice or pallor. PSYCHIATRIC: Denies any new onset depression or anxiety. NEUROLOGY: Denies headache, denies any new focal deficits. EARS/NOSE/THROAT: No recent hearing change, congestion, nasal discharge or sore throat. EYES: No pain in eyes, discharge or change in vision. GASTROINTESTINAL: As per HPI. Past Medical History Past Medical History: Asthma, Diabetes Mellitus, GERD/Reflux Additional Past Medical History / Comment(s): migraines, constipation/diarrhea, degenerative disk disease, endometriosis History of Any Multi-Drug Resistant Organisms: None Reported Past Surgical History: Orthopedic Surgery Additional Past Surgical History / Comment(s): laparoscopc surgery for endo metriosis, cyst removed from left foot, EGD Past Anesthesia/Blood Transfusion Reactions: Previous Problems w/ Anesthesia Additional Past Anesthesia/Blood Transfusion Reaction / Comm: hard to wake up for 48-72 hours after laparoscopic surgery-was in hosp. for 3 days Past Psychological History: PTSD Smoking Status: Never smoker Past Alcohol Use History: None Reported Past Drug Use History: None Reported - Past Family History Mother Family Medical History: No Reported History Additional Family Medical History / Comment(s): hx migraines Father Family Medical History: Coronary Artery Disease (CAD), Hypertension Additional Family Medical History / Comment(s): ddd, alcoholism & drug use Medications and Allergies Home Medications Medication Instructions Recorded Confirmed Type Omeprazole [PriLOSEC] 40 mg PO HS 07/29/16 05/08/19 History EPINEPHrine [Epipen 2-Mike] 0.3 mg IM ONCE PRN 10/16/18 05/08/19 History QUEtiapine FUMARATE [SEROquel] 300 mg PO HS 11/18/18 05/08/19 History Ondansetron [Zofran ODT] 4 mg PO Q6H PRN 02/07/19 05/08/19 History metFORMIN HCL [metFORMIN HCL ER] 750 mg PO HS 02/07/19 05/08/19 History sitaGLIPtin [Januvia] 100 mg PO HS 02/07/19 05/08/19 History Cyanocobalamin (Vitamin B-12) 1,000 mcg PO HS 05/08/19 05/08/19 History [Vitamin B-12] Ergocalciferol [Vitamin D2] 50,000 unit PO TH 05/08/19 05/08/19 History Hydrocortisone Cream 1 applic TOPICAL BID PRN 05/08/19 05/08/19 History [Hydrocortisone 2.5% Cream] Ketoconazole 2% Cream [Nizoral 2%] 1 applic TOPICAL DAILY PRN 05/08/19 05/08/19 History Ketoconazole 2% Shampoo [Nizoral] 1 applic TOPICAL Q3D 05/08/19 05/08/19 History Propranolol HCl 40 mg PO HS 05/08/19 05/08/19 History SUMAtriptan SUCCINATE [Imitrex] 50 mg PO DIRECTED PRN 05/08/19 05/08/19 History Topiramate [Topamax] 50 mg PO HS 05/08/19 05/08/19 History tiZANidine [Zanaflex] 4 mg PO BID PRN 05/08/19 05/08/19 History Allergies Allergy/AdvReac Type Severity Reaction Status Date / Time haloperidol [From Haldol] Allergy Severe QUIT Verified 05/08/19 10:24 BREATHING haloperidol lactate Allergy Severe QUIT Verified 05/08/19 10:24 [From Haldol] BREATHING latex Allergy Severe RASH-THROAT Verified 05/08/19 10:24 CLOSES bee pollen Allergy Unknown Verified 05/08/19 10:24 prednisone Allergy THROAT Verified 05/08/19 10:24 SWELLS spider venom Allergy Swelling Verified 05/08/19 10:24 Sulfa (Sulfonamide Allergy THROAT Verified 05/08/19 10:24 Antibiotics) SWELLS tramadol Allergy Unknown Verified 05/08/19 10:24 promethazine HCl AdvReac Severe Nausea & Verified 05/08/19 10:24 [From Phenergan] Vomiting amoxicillin AdvReac Nausea & Verified 05/08/19 10:24 Vomiting codeine phosphate AdvReac Nausea & Verified 05/08/19 10:24 [From Tylenol-Codeine #3] Vomiting ANTS Allergy Mild Unknown Uncoded 05/07/19 20:07 WASP Allergy Unknown Uncoded 05/07/19 20:07 Physical Exam Vitals: Vital Signs Temp Pulse Pulse Resp BP BP Pulse Ox 05/08/19 07:00 98.3 F 93 16 113/72 94 L 05/08/19 02:06 98.3 F 71 18 137/97 95 05/08/19 01:09 98.2 F 68 19 111/85 98 05/07/19 20:04 98.9 F 95 18 139/97 96 Intake and Output 05/07/19 05/08/19 05/08/19 22:59 06:59 14:59 Intake Total 0 Balance 0 Intake: Oral 0 Other: # Voids 1 1 Weight 106.141 kg 106.141 kg On physical examination, patient appears comfortable in no apparent distress. HEAD: Normocephalic, atraumatic. EYES: No scleral icterus. No conjunctival injection. MOUTH: No lesions, tongue midline. NECK: Trachea midline, no gross abnormalities. CHEST: Clear to auscultation with no wheezing or rhonchi appreciated. HEART: Regular rate and rhythm. ABDOMEN: Soft, obese and tender to palpation in the left upper quadrant of her abdomen. Bowel sounds are positive. No organomegaly. No guarding or rigidity. EXTREMITIES: No pedal edema. SKIN: No rashes, no jaundice. NEUROLOGIC: Alert and oriented x3. No focal deficits. Results CBC & Chem 7: 05/07/19 21:31 05/07/19 23:12 Labs: Abnormal Lab Results - Last 24 Hours (Table) 05/07/19 05/07/19 05/07/19 Range/Units 20:54 22:09 23:12 Chloride 112 H (98-107) mmol/L Carbon Dioxide 18 L (22-30) mmol/L Glucose 109 H (74-99) mg/dL POC Glucose (mg/dL) 109 H (75-99) mg/dL Calcium 10.4 H (8.4-10.2) mg/dL AST 106 H (14-36) U/L ALT 85 H (4-34) U/L Triglycerides (<150) mg/dL Lipase 915 H (23-300) U/L Urine Appearance Cloudy H (Clear) Urine Blood Small H (Negative) Ur Leukocyte Esterase Small H (Negative) Urine WBC 6 H (0-5) /hpf Ur Squamous Epith Cells 5 H (0-4) /hpf Urine Bacteria Many H (None) /hpf Urine Mucus Rare H (None) /hpf 05/07/19 05/08/19 05/08/19 Range/Units 23:12 07:40 11:49 Chloride (98-107) mmol/L Carbon Dioxide (22-30) mmol/L Glucose (74-99) mg/dL POC Glucose (mg/dL) 113 H 150 H (75-99) mg/dL Calcium (8.4-10.2) mg/dL AST (14-36) U/L ALT (4-34) U/L Triglycerides 508 H (<150) mg/dL Lipase (23-300) U/L Urine Appearance (Clear) Urine Blood (Negative) Ur Leukocyte Esterase (Negative) Urine WBC (0-5) /hpf Ur Squamous Epith Cells (0-4) /hpf Urine Bacteria (None) /hpf Urine Mucus (None) /hpf CT scan - abdomen: report reviewed (Computed tomography scan of the abdomen with no acute intra-abdominal findings seen.) Assessment and Plan (1) Pancreatitis Narrative/Plan: 28-year-old female with multiple medical comorbidities who presented to the hospital with complaints of 3 days of left upper quadrant abdominal pain. No findings of pancreatic inflammation on computed tomography scan however the patient did report sharp pain in her epigastric and left lower quadrant with associated elevation in her lipase greater than 900 (3 times procedure than the upper limit of normal). Unclear if this is a late presentation of acute uncomplicated pancreatitis, related to functional bowel disorder, gastroenteri tis, gastritis or other etiology. Current Visit: Yes Status: Acute Code(s): K85.90 - ACUTE PANCREATITIS WITHOUT NECROSIS OR INFECTION, UNSP SNOMED Code(s): 90592755 (2) Abdominal pain Current Visit: No Status: Acute Code(s): R10.9 - UNSPECIFIED ABDOMINAL PAIN SNOMED Code(s): 32800773 Plan: Supportive care Nothing by mouth except for ice chips and meds Continue pain control Continue IV hydration Ultrasound of the abdomen ordered and negative for cholelithiasis, choledocholithiasis or other biliary pathology with hepatic steatosis seen Continue to monitor CBC, CMP Autoimmune work up initiated for autoimmune pancreatitis Thank you for allowing us to participate in the care of the patient, we will continue to follow
--- NOTE | 2019-05-08 21:34 | HP ---
HISTORY AND PHYSICAL CHIEF COMPLAINT: Abdominal pain. HISTORY OF PRESENT ILLNESS: This 28-year-old woman with a past medical history of asthma, diabetes mellitus, GERD, history of migraine, constipation, diarrhea, being followed by Dr. Isi Carolina in the outpatient setting, was complaining of abdominal pain for the last 2-3 days. The pain is mostly in the left upper quadrant with some associated vomiting. The patient also has lower quadrant abdominal stabbing pain and the patient admitted to the hospital for further evaluation and treatment. There is no history of fever, rigors. No history of headache, loss of consciousness, seizures. Initial evaluation showed elevated lipase of 915, amylase of 55, triglycerides 508, indicating acute pancreatitis. Patient admitted for further evaluation and treatment. There is no history of fever, rigors or chills. There is no history of headache, loss of consciousness, seizures. PAST MEDICAL HISTORY: History of asthma, diabetes mellitus, GERD, migraine, history of DJD, history of laparoscopic surgery for endometriosis, previous problems with anesthesia, PTSD. MEDICATIONS: Prior to admission are: 1. Zanaflex 4 mg p.o. b.i.d. p.r.n. 2. Januvia 100 mg p.o. q.h.s. 3. Metformin 750 mg p.o. q.h.s. 4. Topamax 100 mg q.h.s. 5. Imitrex 50 mg p.r.n. 6. Seroquel 300 mg q.h.s. 7. Propranolol 40 mg q.h.s. 8. Zofran 4 mg q.6h p.r.n. 9. Prilosec 40 mg q.h.s. 10.Nizoral 1 application q.3 days. 12.Hydrocortisone 2.5 b.i.d. p.r.n. 13.Vitamin D2 50,000 p.o. . 14.EpiPen 0.3 mg p.r.n. 15.Vitamin B12 1000 mcg p.o. q.h.s. ALLERGIES: HALOPERIDOL, LATEX, BEE POLLEN, PREDNISONE, SPIDER VENOM, SULFA, ULTRAM.PHENERGAN, AMOXICILLIN, CODEINE, . FAMILY HISTORY: History of migraines in the family. SOCIAL HISTORY: No history of smoking. No history of alcohol. REVIEW OF SYSTEMS: ENT: No diminished hearing. No diminished vision. CARDIOVASCULAR: No angina or palpitations. RESPIRATION: No cough. GI as mentioned earlier. no dysuria or hematuria. NERVOUS SYSTEM: No numbness or weakness. ALLERGY/IMMUNOLOGY: No asthma or hayfever. MUSCULOSKELETAL as mentioned earlier. HEMATOLOGY/ONCOLOGY: No history of anemia. ENDOCRINE: History of diabetes. CONSTITUTIONAL: As mentioned earlier. DERMATOLOGY: Negative. RHEUMATOLOGY negative. PSYCHIATRY as mentioned. PHYSICAL EXAM: Patient is alert, oriented x3. The pulse is 91, blood pressure 121/86, respirations 16, temperature 98.7, pulse ox 94% on room air. HEENT: Conjunctivae normal. NECK: No JVD. CARDIOVASCULAR: S1, S2 muffled. RESPIRATIONS: Breath sounds diminished in the bases. No rhonchi. No crackles. ABDOMEN: Soft. Mild diffuse discomfort on palpation on the upper part of the abdomen. No guarding. No rigidity. No mass palpable. Obese. No ascites. LEGS: No edema. No swelling. NERVOUS SYSTEM as mentioned earlier. Moves all 4 limbs. No focal motor or sensory deficits. LYMPHATICS: No lymph nodes palpable in the neck, axillae or groin. SKIN: No ulcers, no rashes and no bleeding. JOINTS: No active deforming arthropathy. LABS: CBC within normal limits. Sodium 140, potassium 4.5, CO2 is 18, glucose 109, calcium is 10.5, AST is 106, and ALT is 85. Triglycerides 508. ASSESSMENT: 1. Abdominal pain with possible acute pancreatitis. 2. Rule out acute gastritis. 3. Hypertriglyceridemia. 4. Increased AST, ALT, rule out hepatitis. 5. History of asthma. 6. Diabetes mellitus type 2. 7. Gastroesophageal reflux disease. 8. History of migraines. 9. History of constipation, diarrhea. 10.History of endometriosis. 11.History of laparoscopic surgery for endometriosis. 12.History of PTSD. 13.Obesity with body mass index 40.2. 14.FULL CODE. CONDITION: In this 28-year-old woman who presented with abdominal pain, had features of pancreatitis. Patient also had hypertriglyceridemia, possibilities of hypertriglyceridemia includes induced pancreatitis is to be considered. We will obtain gastroenterology evaluation. Symptomatic treatment. Protonix. Advance diet once the pain is better. Patient has some itching at this time. I recommend Benadryl p.r.n. DVT prophylaxis. Overall prognosis guarded because of multiple complex medical issues. Further recommendations to follow. Gastroenterology consultation is awaited as mentioned earlier. A copy of this dictation is being forwarded to Dr. Isi Carolina who is the primary care physician. MMDERICKL / IJN: [id number] / MTDD
[2019-05-09] MEDS: HYDROmorphone 1 MG/ML 1 ML SYRINGE IVP PRN ×6 (01:05→20:56)
[2019-05-09] MEDS: diphenhydrAMINE 50 MG/ML 1 ML VIAL IVP PRN (04:44)
[2019-05-09] MEDS: SODIUM CHLORIDE 0.9% 1,000 ML IV SCH ×4 (04:45→22:40)
[2019-05-09 07:11] LABS: Glucose,Whole Blood 102 mg/dL (75-99)
[2019-05-09 07:55] LABS: Basophils % (A) 0 %; Eosinophils # (A) 0.1 k/uL (0-0.7); Eosinophils % (A) 2 %; HCT 40.2 % (34.0-46.0); HGB 12.8 gm/dL (11.4-16.0); Lymphocytes # (A) 2.9 k/uL (1.0-4.8); Lymphocytes % (A) 52 %; MCH 30.4 pg (25.0-35.0); MCHC 31.8 g/dL (31.0-37.0); MCV 95.6 fL (80.0-100.0); Mean Platelet Volume 7.9; Monocytes # (A) 0.2 k/uL (0-1.0); Monocytes % (A) 4 %; Neutrophils # (A) 2.2 k/uL (1.3-7.7); Neutrophils % (A) 40 %; Platelet Count 192 k/uL (150-450); RDW 12.7 % (11.5-15.5); WBC 5.6 k/uL (3.8-10.6)
[2019-05-09 08:17] LABS: ALT 78 U/L (4-34); AST 100 U/L (14-36); African American GFR (CKD) >90 (>60 ml/min/1.73 sqM); Albumin 3.5 g/dL (3.5-5.0); Alkaline Phosphatase 64 U/L (38-126); Amylase 40 U/L (30-110); Anion Gap 8 mmol/L; Blood Urea Nitrogen 4 mg/dL (7-17); Calcium 9.4 mg/dL (8.4-10.2); Carbon Dioxide 19 mmol/L (22-30); Chloride 112 mmol/L (98-107); Glucose 104 mg/dL (74-99); Non-African American GFR(CKD) >90 (>60 ml/min/1.73 sqM); Potassium 3.8 mmol/L (3.5-5.1); Sodium 139 mmol/L (137-145); Total Bilirubin 0.7 mg/dL (0.2-1.3); Total Protein 6.5 g/dL (6.3-8.2)
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
[2019-05-09] MEDS: INSULIN ASPART (NovoLOG) 100 UNIT/ML VIAL SQ SCH ×4 (08:50→20:59)
[2019-05-09] MEDS: HEPARIN SODIUM,PORCINE 5,000 UNIT/ML 1 ML VIAL SQ SCH ×2 (10:33→21:00)
[2019-05-09] MEDS: PANTOPRAZOLE 40 MG/10 ML VIAL IVP SCH (10:34)
[2019-05-09 11:46] LABS: Glucose,Whole Blood 167 mg/dL (75-99)
[2019-05-09 12:22] LABS: Ceruloplasmin 34.3 mg/dL (20.0-60.0)
[2019-05-09] MEDS: diphenhydrAMINE 25 MG CAP PO PRN ×2 (12:47→21:18)
[2019-05-09 12:50] LABS: IgG Subclass 3 35.5 mg/dL (11.0-85.0)
[2019-05-09 12:56] LABS: IgG Subclass 4 44.4 mg/dL (3.0-175.0)
[2019-05-09] MEDS: ONDANSETRON 4 MG/2 ML VIAL IVP PRN ×2 (14:11→22:14)
[2019-05-09 14:47] LABS: ANA Pattern See Footnote
[2019-05-09] MEDS: DICYCLOMINE 20 MG TAB PO SCH ×3 (15:53→20:58)
[2019-05-09 17:07] LABS: Glucose,Whole Blood 119 mg/dL (75-99)
--- NOTE | 2019-05-09 18:07 | PN ---
PROGRESS NOTE DATE OF SERVICE: 05/09/2019 This is a 28-year-old woman who was admitted with acute pancreatitis and has hypertriglyceridemia also. The patient had history of previous pancreatitis also. Gastroenterology following the patient. The patient also had an episode of vaginal bleeding and evaluated by Dr. Degroot. No chest pain. No palpitations. PHYSICAL EXAMINATION: Alert and oriented x3. Pulse is 73, blood pressure 108/74, respirations 16, temperature is 98.3, pulse ox 97% on room air. HEENT: Conjunctivae normal. NECK: No jugular venous distension. CARDIOVASCULAR SYSTEM: S1, S2, muffled. RESPIRATION: Breath sounds diminished at the bases. No rhonchi. No crackles. ABDOMEN: Soft. Diffuse discomfort in the upper part of the abdomen. Otherwise, no guarding, no rigidity, no mass palpable. LEGS: No edema. CENTRAL NERVOUS SYSTEM: No focal deficits. LABS: CBC within normal limits. CO2 19, glucose 167, AST is 100, and ALT is 78, lipase is 484. ASSESSMENT: 1. Abdominal pain with possible acute pancreatitis. 2. Hypertriglyceridemia. 3. Possible acute gastritis. 4. AST and ALT increased, rule out hepatitis. 5. History of asthma. 6. Diabetes mellitus type 2. 7. Gastroesophageal reflux disease. 8. History of migraines. 9. History of constipation, diarrhea. 10.History of endometriosis. 11.History of laparoscopic surgery for endometriosis. 12.History of posttraumatic stress disorder. 13.History of vaginal bleeding, stable. 14.Obesity with body mass index 40.2. 15.FULL CODE. RECOMMENDATIONS AND DISCUSSION: I recommend to continue current medications, continue to monitor, continue symptomatic treatment at this time. I would recommend repeat labs. Advance diet per Gastroenterology. Increase ambulation. Further recommendations to follow. MMODL / IJN: [id number] / MTDD
[2019-05-09 20:36] LABS: Glucose,Whole Blood 145 mg/dL (75-99)
--- NOTE | 2019-05-09 20:41 | P.PN ---
Subjective Progress Note Date: 05/09/19 Principal diagnosis: Acute pancreatitis, abdominal pain Patient is seen lying in bed. She reports that abdominal pain is slightly better. No nausea or vomiting. She is tolerating some liquids. Objective - Vital Signs Vital signs: Vital Signs Temp 98.3 F 05/09/19 07:00 Pulse 73 05/09/19 08:00 Resp 16 05/09/19 08:00 BP 108/74 05/09/19 07:00 Pulse Ox 97 05/09/19 07:00 Intake & Output 05/08/19 05/09/19 05/09/19 18:59 06:59 18:59 Intake Total 1800 Balance 1800 Intake: Intake, IV Titration 1800 Amount Sodium Chloride 0.9% 1, 1800 000 ml @ 150 mls/hr IV . [facility] Rx#:[id number] Other: Voiding Method Toilet Toilet # Voids 3 1 - Exam On physical examination, patient appears comfortable in no apparent distress. HEAD: Normocephalic, atraumatic. EYES: No scleral icterus. No conjunctival injection. MOUTH: No lesions, tongue midline. NECK: Trachea midline, no gross abnormalities. CHEST: Clear to auscultation with no wheezing or rhonchi appreciated. HEART: Regular rate and rhythm. ABDOMEN: Soft, obese and mildly tender to palpation. Bowel sounds are positive. No organomegaly. No guarding or rigidity. EXTREMITIES: No pedal edema. SKIN: No rashes, no jaundice. NEUROLOGIC: Alert and oriented x3. No focal deficits. - Labs CBC & Chem 7: 05/09/19 07:21 05/09/19 07:21 Labs: Abnormal Lab Results - Last 24 Hours (Table) 05/07/19 05/08/19 05/08/19 Range/Units 23:12 16:59 20:29 Chloride (98-107) mmol/L Carbon Dioxide (22-30) mmol/L BUN (7-17) mg/dL Glucose (74-99) mg/dL POC Glucose (mg/dL) 155 H 137 H (75-99) mg/dL AST (14-36) U/L ALT (4-34) U/L Lipase (23-300) U/L MAMTA Screen POSITIVE H (NEGATIVE) 05/09/19 05/09/19 05/09/19 Range/Units 07:00 07:21 11:35 Chloride 112 H (98-107) mmol/L Carbon Dioxide 19 L (22-30) mmol/L BUN 4 L (7-17) mg/dL Glucose 104 H (74-99) mg/dL POC Glucose (mg/dL) 102 H 167 H (75-99) mg/dL AST 100 H (14-36) U/L ALT 78 H (4-34) U/L Lipase 484 H (23-300) U/L MAMTA Screen (NEGATIVE) Assessment and Plan (1) Pancreatitis Narrative/Plan: 28-year-old female with multiple medical comorbidities who presented to the hospital with complaints of 3 days of left upper quadrant abdominal pain. No findings of pancreatic inflammation on computed tomography scan however the p atient did report sharp pain in her epigastric and left lower quadrant with associated elevation in her lipase greater than 900 (3 times procedure than the upper limit of normal). Unclear if this is a late presentation of acute uncomplicated pancreatitis, related to functional bowel disorder, gastr oenteritis, gastritis or other etiology. Current Visit: Yes Status: Acute Code(s): K85.90 - ACUTE PANCREATITIS WITHOUT NECROSIS OR INFECTION, UNSP SNOMED Code(s): 32230961 (2) Abdominal pain Current Visit: No Status: Acute Code(s): R10.9 - UNSPECIFIED ABDOMINAL PAIN SNOMED Code(s): 09629245 Plan: Supportive care Okay for liquids as tolerated, advance as pain improves Continue pain control Continue IV hydration Ultrasound of the abdomen ordered and negative for cholelithiasis, choledocholithiasis or other biliary pathology with hepatic steatosis seen Continue to monitor CBC, CMP Autoimmune work up initiated for autoimmune pancreatitis melena with MAMTA positive blood nonspecific and IgG4 level within normal limits Thank you for allowing us to participate in the care of the patient
[2019-05-09] MEDS: QUEtiapine 100 MG TAB PO SCH (20:58)
[2019-05-09] MEDS: PANTOPRAZOLE 40 MG TABLET PO SCH (20:58)
[2019-05-09] MEDS: POLYETHYLENE GLYCOL 3350 17 GM POWD.PACK PO SCH (20:59)
[2019-05-09] MEDS: PROPRANOLOL 40 MG TAB PO SCH (20:59)
[2019-05-09] MEDS: CYANOCOBALAMIN 500 MCG TAB PO SCH (20:59)
[2019-05-09] MEDS: TOPIRAMATE 25 MG TAB PO SCH (20:59)
[2019-05-10 00:58] LABS: Hepatitis A Antibody IgM Non-Reactive (Non-Reactive); Hepatitis B Core IgM Non-Reactive (Non-Reactive); Hepatitis B Surface Antigen Non-Reactive (Non-Reactive); Hepatitis C IgG Antibody Non-Reactive (Non-Reactive)
[2019-05-10] MEDS: HYDROmorphone 1 MG/ML 1 ML SYRINGE IVP PRN ×6 (01:11→20:23)
[2019-05-10] MEDS: diphenhydrAMINE 25 MG CAP PO PRN (04:43)
[2019-05-10 07:07] LABS: Glucose,Whole Blood 124 mg/dL (75-99)
[2019-05-10] MEDS: INSULIN ASPART (NovoLOG) 100 UNIT/ML VIAL SQ SCH ×4 (07:34→20:24)
[2019-05-10] MEDS: HEPARIN SODIUM,PORCINE 5,000 UNIT/ML 1 ML VIAL SQ SCH ×2 (07:56→20:24)
[2019-05-10] MEDS: PANTOPRAZOLE 40 MG TABLET PO SCH ×2 (07:56→20:24)
[2019-05-10] MEDS: DICYCLOMINE 20 MG TAB PO SCH ×4 (07:56→20:25)
[2019-05-10 09:02] LABS: Basophils % (A) 1 %; Eosinophils # (A) 0.1 k/uL (0-0.7); Eosinophils % (A) 2 %; HCT 39.6 % (34.0-46.0); HGB 13.1 gm/dL (11.4-16.0); Lymphocytes % (A) 55 %; MCH 31.3 pg (25.0-35.0); MCHC 33.1 g/dL (31.0-37.0); MCV 94.8 fL (80.0-100.0); Mean Platelet Volume 8.2; Monocytes # (A) 0.2 k/uL (0-1.0); Monocytes % (A) 4 %; Neutrophils % (A) 36 %; Platelet Count 188 k/uL (150-450); RBC 4.18 m/uL (3.80-5.40); RDW 12.6 % (11.5-15.5); WBC 5.4 k/uL (3.8-10.6)
[2019-05-10 09:14] LABS: ALT 73 U/L (4-34); AST 102 U/L (14-36); African American GFR (CKD) >90 (>60 ml/min/1.73 sqM); Albumin 3.6 g/dL (3.5-5.0); Alkaline Phosphatase 69 U/L (38-126); Amylase 36 U/L (30-110); Anion Gap 11 mmol/L; Blood Urea Nitrogen 3 mg/dL (7-17); Calcium 9.9 mg/dL (8.4-10.2); Carbon Dioxide 19 mmol/L (22-30); Chloride 110 mmol/L (98-107); Glucose 169 mg/dL (74-99); Non-African American GFR(CKD) >90 (>60 ml/min/1.73 sqM); Potassium 3.7 mmol/L (3.5-5.1); Sodium 140 mmol/L (137-145); Total Bilirubin 0.6 mg/dL (0.2-1.3); Total Protein 6.7 g/dL (6.3-8.2)
[2019-05-10 11:56] LABS: Glucose,Whole Blood 126 mg/dL (75-99)
[2019-05-10 17:18] LABS: Glucose,Whole Blood 208 mg/dL (75-99)
[2019-05-10] MEDS: SODIUM CHLORIDE 0.9% 1,000 ML IV SCH ×2 (19:31→20:21)
[2019-05-10 20:20] LABS: Glucose,Whole Blood 189 mg/dL (75-99)
[2019-05-10] MEDS: PROPRANOLOL 40 MG TAB PO SCH (20:24)
[2019-05-10] MEDS: CYANOCOBALAMIN 500 MCG TAB PO SCH (20:24)
[2019-05-10] MEDS: TOPIRAMATE 25 MG TAB PO SCH (20:24)
[2019-05-10] MEDS: QUEtiapine 100 MG TAB PO SCH (20:25)
[2019-05-10 20:54] LABS: Hemoglobin A1C 7.9 % (4.0-6.0)
[2019-05-10] MEDS: POLYETHYLENE GLYCOL 3350 17 GM POWD.PACK PO SCH (21:21)
--- NOTE | 2019-05-10 22:03 | P.PN ---
Subjective Progress Note Date: 05/10/19 Principal diagnosis: Acute pancreatitis Intractable nausea and vomiting and left upper quadrant abdominal pain. Patient is a 28-year-old female with known history of diabetes type 2 admitted to the hospital with left upper quadrant abdominal pain and epigastric pain as well as intractable nausea and vomiting. Patient was found have acute pancreatitis with elevated lipase level. 05/10/2019 Patient says that her abdominal pain is better. Started on liquid diet and will be advanced as tolerated. Denied any further vaginal bleeding and plans. Seen by R D INTERN and recommends no intervention at this time. Patient was found have elevated TG level 508 and hB A1c 7.9 Patient is being continued on PPI and symptomatic management for nausea and vomiting. Autoimmune workup for acute peritonitis including IgG 4 is not elevated MAMTA positive. Hepatitis panel negative. GI is following. Active Medications Alprazolam (Xanax) 0.25 mg PO TID PRN PRN Reason: Anxiety Clotrimazole (Lotrimin Cream) 1 applic TOPICAL DAILY PRN PRN Reason: Rash Cyanocobalamin (Vitamin B-12) 1,000 mcg PO HS [facility] Last Admin: 05/10/19 20:24 Dose: 1,000 mcg Documented by: Dicyclomine HCl (Bentyl) 20 mg PO QID [facility] Last Admin: 05/10/19 20:25 Dose: 20 mg Documented by: Diphenhydramine HCl (Benadryl) 25 mg PO Q6HR PRN PRN Reason: Allergy Symptoms Last Admin: 05/10/19 04:43 Dose: 25 mg Documented by: Ergocalciferol (Vitamin D2) 50,000 unit PO TH [facility] Heparin Sodium (Porcine) (Heparin) 5,000 unit SQ Q12HR [facility] Last Admin: 05/10/19 20:24 Dose: 5,000 unit Documented by: Hydromorphone HCl (Dilaudid) 0.5 mg IVP Q3HR PRN PRN Reason: Pain Last Admin: 05/10/19 20:23 Dose: 0.5 mg Documented by: Sodium Chloride (Saline 0.9%) 1,000 mls @ 150 mls/hr IV .Q6H40M [facility] Last Admin: 05/10/19 20:21 Dose: 150 mls/hr Documented by: Insulin Aspart (Novolog) 0 unit SQ ACHS [facility]; Protocol Last Admin: 05/10/19 20:24 Dose: 3 unit Documented by: Ketoconazole (Nizoral) 1 applic TOPICAL Q3D PRN PRN Reason: SCALP CARE Naloxone HCl (Narcan) 0.2 mg IV Q2M PRN PRN Reason: Opioid Reversal Ondansetron HCl (Zofran) 4 mg IVP Q6HR PRN PRN Reason: Nausea And Vomiting Last Admin: 05/09/19 22:14 Dose: 4 mg Documented by: Pantoprazole Sodium (Protonix) 40 mg PO BID [facility] Last Admin: 05/10/19 20:24 Dose: 40 mg Documented by: Polyethylene Glycol (Miralax) 17 gm PO [facility] Last Admin: 05/10/19 21:21 Dose: 17 gm Documented by: Propranolol HCl (Inderal) 40 mg PO [facility] Last Admin: 05/10/19 20:24 Dose: 40 mg Documented by: Quetiapine Fumarate (Seroquel) 300 mg PO [facility] Last Admin: 05/10/19 20:25 Dose: 300 mg Documented by: Sumatriptan Succinate (Imitrex) 50 mg PO DIRECTED PRN PRN Reason: Migraine Headache Tizanidine HCl (Zanaflex) 4 mg PO BID PRN PRN Reason: Spasms Topiramate (Topamax) 50 mg PO [facility] Last Admin: 05/10/19 20:24 Dose: 50 mg Documented by: Triamcinolone Acetonide (Kenalog) 1 applic TOPICAL BID PRN PRN Reason: Rash Objective - Vital Signs Vital signs: Vital Signs Temp 98.1 F 05/10/19 07:00 Pulse 82 05/10/19 08:04 Resp 16 05/10/19 08:04 BP 125/85 05/10/19 07:00 Pulse Ox 95 05/10/19 07:00 Intake & Output 05/09/19 05/10/19 05/10/19 18:59 06:59 18:59 Intake Total 1050 1050 Balance 1050 1050 Intake: Intake, IV Titration 1050 1050 Amount Sodium Chloride 0.9% 1, 1050 1050 000 ml @ 150 mls/hr IV . Q6H40M [facility] Rx#:[id number] Other: Voiding Method Toilet Toilet Toilet - Exam PHYSICAL EXAMINATION: Patient is lying in the bed comfortably, no acute distress, awake alert and oriented. Morbidly obese.. HEENT: Normocephalic. Neck is supple. Pupils reactive. Nostrils clear. Oral cavity is moist. Ears reveal no drainage. Neck reveals no JVD, carotid bruits, or thyromegaly. CHEST EXAMINATION: Trachea is central. Symmetrical expansion. Lung arroyo clear to auscultation and percussion. CARDIAC: Normal S1, S2 with no gallops. No murmurs ABDOMEN: Soft. Mild epigastric tenderness. Bowel sounds normal. No organ omegaly. No abdominal bruits. Extremities: reveal no edema. No clubbing or cyanosis Neurologically awake, alert, oriented x3 with well-coordinated movements. No focal deficits noted Skin: No rash or skin lesions. Psychiatric: Coperative. Nonsuicidal Musculoskeletal: No joint swelling or deformity. Normal range of motion. - Labs CBC & Chem 7: 05/10/19 08:20 05/10/19 08:20 Labs: Abnormal Lab Results - Last 24 Hours (Table) 05/09/19 05/09/19 05/10/19 Range/Units 16:54 20:24 06:55 Chloride (98-107) mmol/L Carbon Dioxide (22-30) mmol/L BUN (7-17) mg/dL Glucose (74-99) mg/dL POC Glucose (mg/dL) 119 H 145 H 124 H (75-99) mg/dL AST (14-36) U/L ALT (4-34) U/L Lipase (23-300) U/L 05/10/19 05/10/19 Range/Units 08:20 11:50 Chloride 110 H (98-107) mmol/L Carbon Dioxide 19 L (22-30) mmol/L BUN 3 L (7-17) mg/dL Glucose 169 H (74-99) mg/dL POC Glucose (mg/dL) 126 H (75-99) mg/dL AST 102 H (14-36) U/L ALT 73 H (4-34) U/L Lipase 458 H (23-300) U/L Assessment and Plan Assessment: Intractable nausea vomiting and abdominal pain improved now Acute pancreatitis etiology could be due to hypertriglyceridemia and along with nausea vomiting Hypertriglyceridemia 508 Hepatic steatosis Uncontrolled diabetes type 2 with A1c 7.9 GERD History of migraine headaches History of irritable bowel syndrome History of endometriosis PTSD Intermittent veginal bleeding. Currently hemoglobin is stable Morbid obesity BMI 40.2 DVT prophylaxis with heparin subcu Plan: Patient will be continued on IV hydration and pain management with Dilaudid. Patient was started on liquid diet and will be advanced as tolerated. Lipase level is trending down. Continue with symptomatic management for nausea and vomiting. GI is following. Further recommendations based on the clinical course. Time with Patient: Greater than 30
[2019-05-11] MEDS: HYDROmorphone 1 MG/ML 1 ML SYRINGE IVP PRN ×4 (00:16→12:50)
[2019-05-11] MEDS: SODIUM CHLORIDE 0.9% 1,000 ML IV SCH ×2 (05:01→16:45)
[2019-05-11] MEDS: diphenhydrAMINE 25 MG CAP PO PRN (05:09)
--- NOTE | 2019-05-11 06:28 | P.PN ---
Subjective Progress Note Date: 05/10/19 Principal diagnosis: Acute pancreatitis, abdominal pain Patient is seen lying in bed reporting that her abdominal pain is improved since presentation. No nausea or vomiting reported. Objective - Vital Signs Vital signs: Vital Signs Temp 98.1 F 05/10/19 07:00 Pulse 82 05/10/19 08:04 Resp 16 05/10/19 08:04 BP 125/85 05/10/19 07:00 Pulse Ox 95 05/10/19 07:00 Intake & Output 05/09/19 05/10/19 05/10/19 18:59 06:59 18:59 Intake Total 1050 Balance 1050 Intake: Intake, IV Titration 1050 Amount Sodium Chloride 0.9% 1, 1050 000 ml @ 150 mls/hr IV . Q6H40M [facility] Rx#:[id number] Other: Voiding Method Toilet Toilet Toilet - Exam On physical examination, patient appears comfortable in no apparent distress. HEAD: Normocephalic, atraumatic. EYES: No scleral icterus. No conjunctival injection. MOUTH: No lesions, tongue midline. NECK: Trachea midline, no gross abnormalities. CHEST: Clear to auscultation with no wheezing or rhonchi appreciated. HEART: Regular rate and rhythm. ABDOMEN: Soft, obese and mildly tender to palpation. Bowel sounds are positive. No organomegaly. No guarding or rigidity. EXTREMITIES: No pedal edema. SKIN: No rashes, no jaundice. NEUROLOGIC: Alert and oriented x3. No focal deficits. - Labs CBC & Chem 7: 05/10/19 08:20 05/10/19 08:20 Labs: Abnormal Lab Results - Last 24 Hours (Table) 05/09/19 05/09/19 05/10/19 Range/Units 16:54 20:24 06:55 Chloride (98-107) mmol/L Carbon Dioxide (22-30) mmol/L BUN (7-17) mg/dL Glucose (74-99) mg/dL POC Glucose (mg/dL) 119 H 145 H 124 H (75-99) mg/dL AST (14-36) U/L ALT (4-34) U/L Lipase (23-300) U/L 05/10/19 05/10/19 Range/Units 08:20 11:50 Chloride 110 H (98-107) mmol/L Carbon Dioxide 19 L (22-30) mmol/L BUN 3 L (7-17) mg/dL Glucose 169 H (74-99) mg/dL POC Glucose (mg/dL) 126 H (75-99) mg/dL AST 102 H (14-36) U/L ALT 73 H (4-34) U/L Lipase 458 H (23-300) U/L Assessment and Plan (1) Pancreatitis Narrative/Plan: 28-year-old female with multiple medical comorbidities who presented to the hospital with complaints of 3 days of left upper quadrant abdominal pain. No findings of pancreatic inflammation on computed tomography scan however the patient did report sharp pain in her epigastric and left lower quadrant with associated elevation in her lipase greater than 900 (3 times procedure than the upper limit of normal). Unclear if this is a late presentation of acute uncomplicated pancreatitis, related to functional bowel disorder, gastroenteritis, gastritis or other etiology. Current Visit: Yes Status: Acute Code(s): K85.90 - ACUTE PANCREATITIS WITHOUT NECROSIS OR INFECTION, UNSP SNOMED Code(s): 21742754 (2) Abdominal pain Current Visit: No Status: Acute Code(s): R10.9 - UNSPECIFIED ABDOMINAL PAIN SNOMED Code(s): 92328110 Plan: Supportive care Okay for full liquids as tolerated, advance as tolerated Continue pain control, with patient encouraged to try to her pain medications Continue IV hydration Ultrasound of the abdomen ordered and negative for cholelithiasis, choledocholithiasis or other biliary pathology with hepatic steatosis seen Continue to monitor CBC, CMP Autoimmune work up initiated for autoimmune pancreatitis with MAMTA positive blood nonspecific and IgG4 level within normal limits Okay for discharge when otherwise medically stable Thank you for allowing us to participate in the care of the patient, the GI service will stand by, please call us back with any questions or concerns
[2019-05-11 07:17] LABS: Glucose,Whole Blood 114 mg/dL (75-99)
[2019-05-11 08:08] LABS: Basophils % (A) 1 %; Eosinophils # (A) 0.1 k/uL (0-0.7); Eosinophils % (A) 3 %; HCT 39.8 % (34.0-46.0); HGB 13.2 gm/dL (11.4-16.0); Lymphocytes # (A) 2.9 k/uL (1.0-4.8); Lymphocytes % (A) 53 %; MCH 31.6 pg (25.0-35.0); MCHC 33.2 g/dL (31.0-37.0); Mean Platelet Volume 8.2; Monocytes # (A) 0.2 k/uL (0-1.0); Monocytes % (A) 4 %; Neutrophils % (A) 37 %; Platelet Count 204 k/uL (150-450); RBC 4.19 m/uL (3.80-5.40); RDW 12.7 % (11.5-15.5); WBC 5.4 k/uL (3.8-10.6)
[2019-05-11 08:18] LABS: ALT 85 U/L (4-34); AST 105 U/L (14-36); African American GFR (CKD) >90 (>60 ml/min/1.73 sqM); Albumin 3.5 g/dL (3.5-5.0); Alkaline Phosphatase 64 U/L (38-126); Amylase 37 U/L (30-110); Anion Gap 8 mmol/L; Blood Urea Nitrogen <2 mg/dL (7-17); Calcium 9.7 mg/dL (8.4-10.2); Carbon Dioxide 19 mmol/L (22-30); Chloride 112 mmol/L (98-107); Glucose 114 mg/dL (74-99); Non-African American GFR(CKD) >90 (>60 ml/min/1.73 sqM); Potassium 3.8 mmol/L (3.5-5.1); Sodium 139 mmol/L (137-145); Total Bilirubin 0.6 mg/dL (0.2-1.3); Total Protein 6.7 g/dL (6.3-8.2)
[2019-05-11] MEDS ORDERED: ERGOCALCIFEROL 50,000 UNIT CAP PO SCH (09:00)
[2019-05-11] MEDS: DICYCLOMINE 20 MG TAB PO SCH ×3 (09:29→18:16)
[2019-05-11] MEDS: HEPARIN SODIUM,PORCINE 5,000 UNIT/ML 1 ML VIAL SQ SCH ×2 (09:29→20:13)
[2019-05-11] MEDS: PANTOPRAZOLE 40 MG TABLET PO SCH ×2 (09:29→20:30)
[2019-05-11] MEDS: INSULIN ASPART (NovoLOG) 100 UNIT/ML VIAL SQ SCH ×4 (09:35→20:22)
[2019-05-11 12:05] LABS: Glucose,Whole Blood 188 mg/dL (75-99)
--- NOTE | 2019-05-11 14:32 | PN ---
PROGRESS NOTE DATE OF SERVICE: 05/11/2019 This is a 28-year-old woman who was admitted with acute pancreatitis, also had diminished CO2. The patient is being closely followed by multiple consultants. The patient also had hypertriglyceridemia which might have triggered the pancreatitis. The MAMTA is positive, also. No chest pain. No palpitations. No fever. PHYSICAL EXAM: Alert and oriented x3. Pulse is 69, blood pressure 103/65, respiration 18, temperature 98.2, pulse ox 98% on room air. Conjunctivae normal. Oral mucosa moist. NECK: No jugular enlargement, no lymph enlargement. CARDIOVASCULAR SYSTEM: S1, S2, muffled. RESPIRATION: Breath sounds diminished at the bases, no rhonchi, no crackles. ABDOMEN: Soft, obese, mild diffuse discomfort in the epigastrium. No mass palpable. LEGS: Legs no edema. Normal nervous System focal less focal deficits. LABS: CBC within normal limits. Sodium 130, potassium 3.8. ESR is only 19. AST is 85. ASSESSMENT: 1. Abdominal pain with possible acute pancreatitis present on admission. 2. Hypertriglyceridemia. 3. Possible acute gastritis. 4. Increased AST, ALT possibly secondary to hepatitis of undetermined etiology next history of asthma. 5. Diabetes mellitus type 2. 6. History of migraine history of constipation, diarrhea next history of endometriosis. 7. History of laparoscopic surgery for endometriosis. 8. Decreased CO2 of undetermined etiology. 9. History of post-traumatic stress disorder. 10.History of vaginal bleeding, stable. 11.Obesity with body mass index of 40.2. 12.FULL CODE. RECOMMENDATIONS AND DISCUSSION: Recommend to continue current medications, management and advance diet per Gastroenterology. Otherwise, I recommended ABG as well as Nephrology consultation to rule out the possibility of renal tubular acidosis. Otherwise, continue to monitor. Monitor amylase, lipase. Repeat labs have been ordered. Further recommendations to follow. MMODL / IJN: [id number] /
[2019-05-11] MEDS: HYDROmorphone 0.5 MG/0.5 ML SYRINGE IVP PRN ×2 (16:01→20:14)
[2019-05-11] MEDS: ONDANSETRON 4 MG/2 ML VIAL IVP PRN (16:03)
[2019-05-11 16:37] LABS: Glucose,Whole Blood 171 mg/dL (75-99)
[2019-05-11 20:06] LABS: Glucose,Whole Blood 117 mg/dL (75-99)
[2019-05-11] MEDS: POLYETHYLENE GLYCOL 3350 17 GM POWD.PACK PO SCH (20:12)
[2019-05-11] MEDS: PROPRANOLOL 40 MG TAB PO SCH (20:12)
[2019-05-11] MEDS: CYANOCOBALAMIN 500 MCG TAB PO SCH (20:13)
[2019-05-11] MEDS: TOPIRAMATE 25 MG TAB PO SCH (20:13)
[2019-05-11] MEDS: QUEtiapine 100 MG TAB PO SCH (20:13)
[2019-05-12] MEDS: HYDROmorphone 0.5 MG/0.5 ML SYRINGE IVP PRN (00:06)
[2019-05-12] MEDS: SODIUM CHLORIDE 0.9% 1,000 ML IV SCH (01:01)
[2019-05-12 07:30] LABS: Glucose,Whole Blood 145 mg/dL (75-99)
[2019-05-12] MEDS: HEPARIN SODIUM,PORCINE 5,000 UNIT/ML 1 ML VIAL SQ SCH (07:42)
[2019-05-12] MEDS: DICYCLOMINE 20 MG TAB PO SCH ×2 (07:42→12:17)
[2019-05-12] MEDS: PANTOPRAZOLE 40 MG TABLET PO SCH (07:42)
[2019-05-12] MEDS: INSULIN ASPART (NovoLOG) 100 UNIT/ML VIAL SQ SCH ×2 (07:43→12:17)
[2019-05-12 08:44] VITALS: BP 94/66; PULSE 99; RESP 12; TEMP 98
--- NOTE | 2019-05-12 11:40 | CONS ---
CONSULTATION REASON FOR CONSULT: Metabolic acidosis. HISTORY OF PRESENT ILLNESS: Patient is a 28-year-old female who was admitted to the hospital with abdominal pain. She was found to have pancreatitis. There was no evidence of biliary stone. The patient's triglycerides were elevated at 508 mg/dL. Currently patient is feeling better. She is able to tolerate p.o. intake. She denies any prior history of kidney diseases. Patient is noted to have a CO2 on electrolytes ranging from 18 to 19 millimoles per liter and on review of her previous labs, we see CO2 all the way down to 16 and 17 in May of 2018. Currently patient denies any ongoing diarrhea. There is no significant abdominal pain present at this time. CAT scan did not show any suggestion of medullary sponge kidneys or nephrolithiasis. No evidence of nephrocalcinosis. PAST MEDICAL HISTORY: Type 2 diabetes, asthma, gastroesophageal reflux disease, constipation, history of endometriosis. PAST SURGICAL HISTORY: EGD, cyst on the left foot removed, laparoscopic surgery for endometriosis. SOCIAL HISTORY: Negative for smoking, drug abuse or alcohol abuse. Patient has posttraumatic stress disorder. MEDICATIONS: Medications include Prilosec, EpiPen, Seroquel, Zofran, metformin, Januvia, B12, vitamin D2, propranolol, Imitrex, Topamax, Zanaflex. ALLERGIES: Allergies include HALDOL, LATEX, PREDNISONE, BEE POLLEN, SPIDER VENOM, SULFA, TRAMADOL, AMOXICILLIN, PHENERGAN, ANTS and WASPS. REVIEW OF SYSTEMS: As per HPI. Other systems negative. PHYSICAL EXAMINATION: On examination, patient is comfortable, awake, alert, oriented x3, not in any acute distress. Blood pressure 94/66, heart rate 99 per minute. She is afebrile. EXAMINATION OF THE HEART: S1, S2. EXAMINATION OF THE LUNGS: Bilateral breath sounds are heard. ABDOMEN: Soft, nontender. Examination of lower extremities shows no evidence of edema. 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 LABS: Labs show sodium of 139, potassium 3.8, chloride 112, CO2 is 19, BUN less than 2, creatinine 0.7, hemoglobin 13.2 g/dL, calcium 9.7, amylase 37, lipase 387. ASSESSMENT: 1. Non gap metabolic acidosis, most likely secondary to Topamax. There is no ongoing diarrhea to cause the acidosis and renal function is fairly well preserved. I will check urine electrolytes to rule out underlying RTA. However, patient does not have any evidence of nephrocalcinosis or suggestion of medullary sponge kidneys on her CAT scan. I believe most of the acidosis rate is related to the Topamax. If the medication is helping the patient significantly in controlling her symptoms of migraine, then it may be worthwhile to continue the medication. However, she may need to take a small dose of sodium bicarb. Given the young age, I would avoid long- term metabolic acidosis for overall bone health. 2. Pancreatitis, most likely associated with hypertriglyceridemia, currently slowly improving. PLAN: Check urine electrolytes. Consider adding low-dose sodium bicarb if Topamax is significantly helping in controlling symptoms of migraine. Thank you for this consultation. MMODL / IJN: [id number] /
[2019-05-12 11:58] LABS: Glucose,Whole Blood 161 mg/dL (75-99)
--- NOTE | 2019-05-12 20:43 | DS ---
DISCHARGE SUMMARY DATE OF SERVICE: 05/12/2019 FINAL DIAGNOSES: 1. Abdominal pain with possible acute pancreatitis present on admission, improved. 2. Hypertriglyceridemia. 3. Possible acute gastritis. 4. Decreased CO2 with mild acidosis metabolic possibly secondary from drug effects, rule out renal tubular acidosis. 5. Increased AST, ALT, possibly secondary to hepatitis of undetermined etiology. 6. History of asthma. 7. Diabetes mellitus type 2. 8. History of migraine. 9. History of constipation. 10.History of endometriosis. 11.History of laparoscopic surgery for endometriosis. 12.History of PTSD. 13.History of vaginal bleeding, stable. 14.Obesity with body mass index 40.2. 15.FULL CODE. DISCHARGE DISPOSITION: The patient will be discharged in stable condition with guarded prognosis. HISTORY OF PRESENT ILLNESS: This 28 -year-old woman with a past medical history of multiple medical problems admitted with features of acute pancreatitis, treated symptomatically. Patient improved significantly. Dr. Barber saw the patient and recommend outpatient followup. The triglycerides were found to be elevated at 508. Recommended close followup and repeat this in the outpatient setting. Otherwise, lipase improved to 387, and CO2 was persistently slightly low at 19. Dr. Cunningham saw the patient and recommended outpatient followup. On exam, vitals are stable. Cardiovascular: S1, S2. Abdomen soft. Nervous system: No focal deficits. DISCHARGE ADVICE AND MEDICATIONS: 1. Diet is soft, cardiac low-fat. 2. Follow up with Dr. Isi Carolina in 2-3 days with repeat labs and amylase/lipase and repeat lipid profile in 1 month. 3. Follow up with Dr. Cunningham as recommended. 4. Follow up with Dr. Barber as recommended p.r.n. DISCHARGE MEDICATIONS: 1. EpiPen p.r.n. 2. Hydrocortisone cream. Local application. 3. Imitrex p.r.n. 4. Januvia 100 mg q.h.s. 5. Metformin 75 mg p.o. q.h.s. 6. Nizoral cream. 7. Prilosec 40 mg q.h.s. 8. Propranolol 40 mg p.o. q.h.s. 9. Seroquel 300 mg q.h.s. 10.Topamax 50 mg p.o. q.h.s. 11.Vitamin B12 1000 mg p.o. q.h.s. 12.Vitamin D2 50,000 p.o. . 13.Zanaflex 4 mg p.o. b.i.d. p.r.n. 14.Zofran 4 mg q.6h p.r.n. 15.Bentyl 20 mg q.i.d. p.r.n. 16.Protonix 40 mg p.o. b.i.d. VAL / RICA: [id number] / [facility] CENTERHerberth
== END 2019-05-12 17:02 | disposition home or self-care (01) | DRG 439 ==
LOC: EC 19:46 → 4SSUR 05-08 01:13
PROVIDERS: ADMIT Hospitalist; ATTEND Hospitalist
PROC: 05HD33Z Insertion of Infusion Device into Right Cephalic Vein, Percutaneous Approach (ICD-10-PCS; principal; 2019-05-09 12:45)
DX: K85.90 Acute pancreatitis without necrosis or infection, unspecified (principal); E87.2 Acidosis; Z68.41 Body mass index [BMI] 40.0-44.9, adult; N25.89 Other disorders resulting from impaired renal tubular function; K76.0 Fatty (change of) liver, not elsewhere classified; E78.1 Pure hyperglyceridemia; J45.909 Unspecified asthma, uncomplicated; E11.65 Type 2 diabetes mellitus with hyperglycemia; K21.9 Gastro-esophageal reflux disease without esophagitis; G43.909 Migraine, unspecified, not intractable, without status migrainosus; E66.9 Obesity, unspecified; F43.10 Post-traumatic stress disorder, unspecified; M19.90 Unspecified osteoarthritis, unspecified site; L29.9 Pruritus, unspecified; K58.9 Irritable bowel syndrome, unspecified; M51.36 Other intervertebral disc degeneration, lumbar region; T42.6X5A Adverse effect of other antiepileptic and sedative-hypnotic drugs, initial encounter; N93.9 Abnormal uterine and vaginal bleeding, unspecified; K29.00 Acute gastritis without bleeding; Z98.890 Other specified postprocedural states; Z79.84 Long term (current) use of oral hypoglycemic drugs; Z79.899 Other long term (current) drug therapy; Z87.42 Personal history of other diseases of the female genital tract; Z87.19 Personal history of other diseases of the digestive system; Z87.2 Personal history of diseases of the skin and subcutaneous tissue; Z91.030 Bee allergy status; Z91.040 Latex allergy status; Z88.5 Allergy status to narcotic agent; Z88.0 Allergy status to penicillin; Z88.2 Allergy status to sulfonamides; Z88.8 Allergy status to other drugs, medicaments and biological substances; Z91.048 Other nonmedicinal substance allergy status; Z82.0 Family history of epilepsy and other diseases of the nervous system; Z82.49 Family history of ischemic heart disease and other diseases of the circulatory system; Z81.1 Family history of alcohol abuse and dependence; Z82.69 Family history of other diseases of the musculoskeletal system and connective tissue; Z62.810 Personal history of physical and sexual abuse in childhood; Z80.49 Family history of malignant neoplasm of other genital organs; Z80.41 Family history of malignant neoplasm of ovary; Z80.0 Family history of malignant neoplasm of digestive organs
CPT/HCPCS: 36410; 36415; 71045; 74177; 76705; 76937; 80053; 80074; 81001; 81025; 82150; 82390; 82435; 82787; 83036; 83605; 83690; 84478; 85025; 85652; 86038; 86039; 86140; 96374; 99285

== ENCOUNTER 2019-05-16 17:59 | Inpatient (IN) | payer OTHER ==
[2019-05-16] MEDS ORDERED: ONDANSETRON 4 MG/2 ML VIAL IVP STA (18:41)
[2019-05-16] MEDS ORDERED: SODIUM CHLORIDE 0.9% 1,000 ML IV STA ×2 (18:41→19:58)
[2019-05-16] MEDS ORDERED: MORPHINE SULFATE 4 MG/ML SYRINGE IV STA (18:41)
--- NOTE | 2019-05-16 18:41 | ED ---
Abdominal Pain HPI - General Chief Complaint: Abdominal Pain Stated Complaint: LT sided flank pain Time Seen by Provider: 05/16/19 18:21 Source: patient, RN notes reviewed, old records reviewed Mode of arrival: ambulatory Limitations: no limitations, language barrier - History of Present Illness Initial Comments: This is a 28-year-old female DF for evaluation presented for evaluation regards to abdominal pain. Patient has history of recent diagnosis pancreatitis on multiple medications with I diabetes multiple psychiatric medications. No recent change in medications. No recent fevers but she has have increased nausea vomiting without quadrant abdominal pain no diarrhea no travel history no sick contacts. Denies drugs or alcohol abuse. Some recent weight loss secondary to decreased appetite MD Complaint: abdominal pain (Left upper quadrant) -: days(s) Location: LUQ Radiation: LUQ, epigastric Migration to: no migration Severity: moderate Severity scale (1-10): 4 Quality: cramping, aching Consistency: constant Improves With: nothing Worsens With: eating Associated Symptoms: nausea, vomiting, anorexia - Related Data Home Medications Medication Instructions Recorded Confirmed Omeprazole [PriLOSEC] 40 mg PO HS 07/29/16 05/08/19 EPINEPHrine [Epipen 2-Mike] 0.3 mg IM ONCE PRN 10/16/18 05/08/19 QUEtiapine FUMARATE [SEROquel] 300 mg PO HS 11/18/18 05/08/19 Ondansetron [Zofran ODT] 4 mg PO Q6H PRN 02/07/19 05/08/19 metFORMIN HCL [metFORMIN HCL ER] 750 mg PO HS 02/07/19 05/08/19 sitaGLIPtin [Januvia] 100 mg PO HS 02/07/19 05/08/19 Cyanocobalamin (Vitamin B-12) 1,000 mcg PO HS 05/08/19 05/08/19 [Vitamin B-12] Ergocalciferol [Vitamin D2 50,000 unit PO TH 05/08/19 05/08/19 (DRISDOL)] Hydrocortisone Cream 1 applic TOPICAL BID PRN 05/08/19 05/08/19 [Hydrocortisone 2.5% Cream] Ketoconazole 2% Cream [Nizoral 2%] 1 applic TOPICAL DAILY PRN 05/08/19 05/08/19 Ketoconazole 2% Shampoo [Nizoral] 1 applic TOPICAL Q3D 05/08/19 05/08/19 Propranolol HCl 40 mg PO HS 05/08/19 05/08/19 SUMAtriptan SUCCINATE [Imitrex] 50 mg PO DIRECTED PRN 05/08/19 05/08/19 Topiramate [Topamax] 50 mg PO HS 05/08/19 05/08/19 tiZANidine [Zanaflex] 4 mg PO BID PRN 05/08/19 05/08/19 Previous Rx's Medication Instructions Recorded Dicyclomine [Bentyl] 20 mg PO QID PRN #20 tab 05/12/19 Pantoprazole [Protonix] 40 mg PO BID #60 tablet. 05/12/19 Allergies Allergy/AdvReac Type Severity Reaction Status Date / Time haloperidol [From Haldol] Allergy Severe QUIT Verified 05/08/19 10:24 BREATHING haloperidol lactate Allergy Severe QUIT Verified 05/08/19 10:24 [From Haldol] BREATHING latex Allergy Severe RASH-THROAT Verified 05/08/19 10:24 CLOSES bee pollen Allergy Unknown Verified 05/08/19 10:24 prednisone Allergy THROAT Verified 05/08/19 10:24 SWELLS spider venom Allergy Swelling Verified 05/08/19 10:24 Sulfa (Sulfonamide Allergy THROAT Verified 05/08/19 10:24 Antibiotics) SWELLS tramadol Allergy Unknown Verified 05/08/19 10:24 promethazine HCl AdvReac Severe Nausea & Verified 05/08/19 10:24 [From Phenergan] Vomiting amoxicillin AdvReac Nausea & Verified 05/08/19 10:24 Vomiting codeine phosphate AdvReac Nausea & Verified 05/08/19 10:24 [From Tylenol-Codeine #3] Vomiting ANTS Allergy Mild Unknown Uncoded 05/07/19 20:07 WASP Allergy Unknown Uncoded 05/07/19 20:07 Review of Systems ROS Statement: Those systems with pertinent positive or pertinent negative responses have been documented in the HPI. ROS Other: All systems not noted in ROS Statement are negative. Past Medical History Past Medical History: Asthma, Diabetes Mellitus, GERD/Reflux Additional Past Medical History / Comment(s): migraines, constipation/diarrhea, degenerative disk disease, endometriosis, lupus, pancreatitis History of Any Multi-Drug Resistant Organisms: None Reported Past Surgical History: Orthopedic Surgery Additional Past Surgical History / Comment(s): laparoscopc surgery for endometriosis, cyst removed from left foot, EGD Past Anesthesia/Blood Transfusion Reactions: Previous Problems w/ Anesthesia Additional Past Anesthesia/Blood Transfusion Reaction / Comment(s): hard to wake up for 48-72 hours after laparoscopic surgery-was in hosp. for 3 days Past Psychological History: PTSD Smoking Status: Never smoker Past Alcohol Use History: None Reported Past Drug Use History: None Reported - Past Family History Mother Family Medical History: No Reported History Additional Family Medical History / Comment(s): hx migraines Father Family Medical History: Coronary Artery Disease (CAD), Hypertension Additional Family Medical History / Comment(s): ddd, alcoholism & drug use General Exam Limitations: no limitations, language barrier General appearance: alert, in no apparent distress, obese Head exam: Present: atraumatic, normocephalic, normal inspection Eye exam: Present: normal appearance, PERRL, EOMI. Absent: scleral icterus, conjunctival injection, periorbital swelling ENT exam: Present: normal exam, mucous membranes moist Neck exam: Present: normal inspection. Absent: tenderness, meningismus, lymphadenopathy Respiratory exam: Present: normal lung sounds bilaterally. Absent: respiratory distress, wheezes, rales, rhonchi, stridor Cardiovascular Exam: Present: regular rate, normal rhythm, normal heart sounds. Absent: systolic murmur, diastolic murmur, rubs, gallop, clicks GI/Abdominal exam: Present: soft, tenderness (Left upper quadrant), guarding (Voluntary), normal bowel sounds. Absent: distended, rebound, rigid Extremities exam: Present: normal inspection, full ROM, normal capillary refill. Absent: tenderness, pedal edema, joint swelling, calf tenderness Back exam: Present: normal inspection Neurological exam: Present: alert, oriented X3, CN II-XII intact Psychiatric exam: Present: normal affect, normal mood Skin exam: Present: warm, dry, intact, normal color. Absent: rash Course Vital Signs 05/16/19 05/16/19 18:19 19:22 Temperature 97.7 F 98.4 F Pulse Rate 116 H 88 Respiratory 18 18 Rate Blood Pressure 123/99 104/89 O2 Sat by Pulse 98 99 Oximetry - Reevaluation(s) Reevaluation #1: 05/16/19 18:40 Medical records reviewed including prior inpatient consultation with elevated lipase Reevaluation #2: 05/16/19 20:04 Patient is reevaluated pain so severe w nausea - Consultations Consultation #1: spoke w [facility] ok for admission Medical Decision Making - Medical Decision Making 28 female to the ER for evaluation recurrent acute pancreatitis. Patient will be admitted for GI evaluation, hydration pain control and nothing by mouth status - Lab Data Result diagrams: 05/16/19 18:35 05/16/19 18:35 Lab Results 05/16/19 05/16/19 05/16/19 Range/Units 18:35 18:35 18:35 WBC 7.3 (3.8-10.6) k/uL RBC 5.09 (3.80-5.40) m/uL Hgb 16.4 H D (11.4-16.0) gm/dL Hct 47.6 H (34.0-46.0) % MCV 93.5 (80.0-100.0) fL MCH 32.3 (25.0-35.0) pg MCHC 34.5 (31.0-37.0) g/dL RDW 12.8 (11.5-15.5) % Plt Count 218 (150-450) k/uL Neutrophils % 57 % Lymphocytes % 36 % Monocytes % 4 % Eosinophils % 1 % Basophils % 1 % Neutrophils # 4.1 (1.3-7.7) k/uL Lymphocytes # 2.6 (1.0-4.8) k/uL Monocytes # 0.3 (0-1.0) k/uL Eosinophils # 0.1 (0-0.7) k/uL Basophils # 0.0 (0-0.2) k/uL Sodium 139 (137-145) mmol/L Potassium 4.3 (3.5-5.1) mmol/L Chloride 108 H (98-107) mmol/L Carbon Dioxide 18 L (22-30) mmol/L Anion Gap 13 mmol/L BUN 10 (7-17) mg/dL Creatinine 0.93 (0.52-1.04) mg/dL Est GFR (CKD-EPI)AfAm >90 (>60 ml/min/1.73 sqM) Est GFR (CKD-EPI)NonAf 85 (>60 ml/min/1.73 sqM) Glucose 235 H (74-99) mg/dL Calcium 10.8 H (8.4-10.2) mg/dL Total Bilirubin 0.7 (0.2-1.3) mg/dL AST 148 H (14-36) U/L ALT 117 H (4-34) U/L Alkaline Phosphatase 107 (38-126) U/L Total Protein 8.3 H (6.3-8.2) g/dL Albumin 4.7 (3.5-5.0) g/dL Amylase 46 (30-110) U/L Lipase 754 H (23-300) U/L Urine Color Urine Appearance (Clear) Urine pH (5.0-8.0) Ur Specific [place] (1.001-1.035) Urine Protein (Negative) Urine Glucose (UA) (Negative) Urine Ketones (Negative) Urine Blood (Negative) Urine Nitrite (Negative) Urine Bilirubin (Negative) Urine Urobilinogen (<2.0) mg/dL Ur Leukocyte Esterase (Negative) Urine RBC (0-5) /hpf Urine WBC (0-5) /hpf Ur Squamous Epith Cells (0-4) /hpf Calcium Oxalate Crystal (None) /hpf Amorphous Sediment (None) /hpf Urine Bacteria (None) /hpf Urine Mucus (None) /hpf Urine HCG, Qual Not Detected (Not Detectd) 05/16/19 Range/Units 18:35 WBC (3.8-10.6) k/uL RBC (3.80-5.40) m/uL Hgb (11.4-16.0) gm/dL Hct (34.0-46.0) % MCV (80.0-100.0) fL MCH (25.0-35.0) pg MCHC (31.0-37.0) g/dL RDW (11.5-15.5) % Plt Count (150-450) k/uL Neutrophils % % Lymphocytes % % Monocytes % % Eosinophils % % Basophils % % Neutrophils # (1.3-7.7) k/uL Lymphocytes # (1.0-4.8) k/uL Monocytes # (0-1.0) k/uL Eosinophils # (0-0.7) k/uL Basophils # (0-0.2) k/uL Sodium (137-145) mmol/L Potassium (3.5-5.1) mmol/L Chloride (98-107) mmol/L Carbon Dioxide (22-30) mmol/L Anion Gap mmol/L BUN (7-17) mg/dL Creatinine (0.52-1.04) mg/dL Est GFR (CKD-EPI)AfAm (>60 ml/min/1.73 sqM) Est GFR (CKD-EPI)NonAf (>60 ml/min/1.73 sqM) Glucose (74-99) mg/dL Calcium (8.4-10.2) mg/dL Total Bilirubin (0.2-1.3) mg/dL AST (14-36) U/L ALT (4-34) U/L Alkaline Phosphatase (38-126) U/L Total Protein (6.3-8.2) g/dL Albumin (3.5-5.0) g/dL Amylase (30-110) U/L Lipase (23-300) U/L Urine Color Yellow Urine Appearance Cloudy H (Clear) Urine pH 5.5 (5.0-8.0) Ur Specific [place] 1.033 (1.001-1.035) Urine Protein 1+ H (Negative) Urine Glucose (UA) Trace H (Negative) Urine Ketones Trace H (Negative) Urine Blood Large H (Negative) Urine Nitrite Negative (Negative) Urine Bilirubin Negative (Negative) Urine Urobilinogen 3.0 (<2.0) mg/dL Ur Leukocyte Esterase Moderate H (Negative) Urine RBC 138 H (0-5) /hpf Urine WBC 23 H (0-5) /hpf Ur Squamous Epith Cells 8 H (0-4) /hpf Calcium Oxalate Crystal Moderate H (None) /hpf Amorphous Sediment Rare H (None) /hpf Urine Bacteria Many H (None) /hpf Urine Mucus Many H (None) /hpf Urine HCG, Qual (Not Detectd) Disposition Clinical Impression: Abdominal pain, Pancreatitis, Pelvic inflammatory disease, acute Disposition: ADMITTED IP TO THIS HOSP Condition: Good Is patient prescribed a controlled substance at d/c from ED?: No Referrals: Isi Carolina MD [Primary Care Provider] - 1-2 days
[2019-05-16 18:53] LABS: Basophils % (A) 1 %; Eosinophils # (A) 0.1 k/uL (0-0.7); Eosinophils % (A) 1 %; HCT 47.6 % (34.0-46.0); Lymphocytes # (A) 2.6 k/uL (1.0-4.8); Lymphocytes % (A) 36 %; MCH 32.3 pg (25.0-35.0); MCHC 34.5 g/dL (31.0-37.0); MCV 93.5 fL (80.0-100.0); Mean Platelet Volume 8.5; Monocytes # (A) 0.3 k/uL (0-1.0); Monocytes % (A) 4 %; Neutrophils # (A) 4.1 k/uL (1.3-7.7); Neutrophils % (A) 57 %; Platelet Count 218 k/uL (150-450); RBC 5.09 m/uL (3.80-5.40); RDW 12.8 % (11.5-15.5); WBC 7.3 k/uL (3.8-10.6)
[2019-05-16] MEDS: SODIUM CHLORIDE 0.9% 1,000 ML IV STA (18:54)
[2019-05-16 19:03] LABS: ALT 117 U/L (4-34); AST 148 U/L (14-36); African American GFR (CKD) >90 (>60 ml/min/1.73 sqM); Albumin 4.7 g/dL (3.5-5.0); Alkaline Phosphatase 107 U/L (38-126); Amylase 46 U/L (30-110); Anion Gap 13 mmol/L; Blood Urea Nitrogen 10 mg/dL (7-17); Calcium 10.8 mg/dL (8.4-10.2); Carbon Dioxide 18 mmol/L (22-30); Chloride 108 mmol/L (98-107); Glucose 235 mg/dL (74-99); Non-African American GFR(CKD) 85 (>60 ml/min/1.73 sqM); Potassium 4.3 mmol/L (3.5-5.1); Sodium 139 mmol/L (137-145); Total Bilirubin 0.7 mg/dL (0.2-1.3); Total Protein 8.3 g/dL (6.3-8.2)
[2019-05-16 19:09] LABS: Amorphous Sediment,Urine Rare /hpf; Appearance,Urine Cloudy (Clear); Bacteria,Urine Many /hpf; Bilirubin,Urine Negative (Negative); Blood,Urine Large (Negative); Calcium Oxalate Crystals,Urine Moderate /hpf; Color,Urine Yellow; Glucose,Urine (UA) Trace (Negative); Ketones,Urine Trace (Negative); Leukocyte Esterase,Urine Moderate (Negative); Mucus,Urine Many /hpf; Nitrite,Urine Negative (Negative); PH, Urine 5.5 (5.0-8.0); Protein,Urine 1+ (Negative); RBC,Urine 138 /hpf (0-5); Specific Gravity,Urine 1.033 (1.001-1.035); Squamous Epithelial Cell,Urine 8 /hpf (0-4); WBC,Urine 23 /hpf (0-5)
[2019-05-16 19:15] LABS: HGB 16.4 gm/dL (11.4-16.0)
[2019-05-16] MEDS ORDERED: PANTOPRAZOLE 40 MG/10 ML VIAL IVP STA (19:58)
[2019-05-16] MEDS ORDERED: SODIUM CHLORIDE 0.9% 500 ML 500 ML IV STA (19:58)
[2019-05-16] MEDS: MORPHINE SULFATE 4 MG/ML SYRINGE IVP PRN (22:13)
[2019-05-16] MEDS ORDERED: SUMAtriptan SUCCINATE 50 MG TAB PO PRN (23:00)
[2019-05-16] MEDS ORDERED: PANTOPRAZOLE 40 MG TABLET PO SCH (23:00)
[2019-05-16] MEDS: DICYCLOMINE 20 MG TAB PO SCH (23:24)
[2019-05-16] MEDS: CYANOCOBALAMIN 500 MCG TAB PO SCH (23:24)
[2019-05-16] MEDS: metFORMIN 500 MG TAB PO SCH (23:25)
[2019-05-16] MEDS: LINAGLIPTIN 5 MG TABLET PO SCH (23:25)
[2019-05-16] MEDS: PROPRANOLOL 20 MG TAB PO SCH (23:26)
[2019-05-16] MEDS: QUEtiapine 100 MG TAB PO SCH (23:26)
[2019-05-16] MEDS: TOPIRAMATE 25 MG TAB PO SCH (23:27)
[2019-05-16] MEDS: HYDROCORTISONE 1% CREAM 30 GM TUBE TOPICAL PRN (23:30)
[2019-05-16] MEDS: tiZANidine 4 MG TAB PO PRN (23:56)
[2019-05-17] MEDS: MORPHINE SULFATE 4 MG/ML SYRINGE IVP PRN ×3 (03:40→11:17)
[2019-05-17 06:49] LABS: Glucose,Whole Blood 107 mg/dL (75-99)
[2019-05-17] MEDS: INSULIN ASPART (NovoLOG) 100 UNIT/ML VIAL SQ SCH ×4 (06:58→20:59)
[2019-05-17] MEDS: SODIUM CHLORIDE 0.9% 1,000 ML IV STA (07:26)
[2019-05-17] MEDS: ONDANSETRON 4 MG/2 ML VIAL IVP PRN ×3 (08:22→21:03)
[2019-05-17] MEDS: DICYCLOMINE 20 MG TAB PO SCH ×2 (08:49→21:12)
[2019-05-17] MEDS: HYDROCORTISONE 1% CREAM 30 GM TUBE TOPICAL PRN (09:00)
[2019-05-17] MEDS ORDERED: PANTOPRAZOLE 40 MG/10 ML VIAL IVP SCH (09:00)
[2019-05-17] MEDS ORDERED: CLOTRIMAZOLE 1% CREAM 15 GM TUBE TOPICAL PRN (09:00)
[2019-05-17] MEDS: metFORMIN 500 MG TAB PO SCH (10:05)
[2019-05-17] MEDS: SODIUM CHLORIDE 0.9% 1,000 ML IV SCH ×3 (11:16→21:15)
[2019-05-17 12:09] LABS: Glucose,Whole Blood 114 mg/dL (75-99)
[2019-05-17] MEDS ORDERED: HYDROmorphone 0.5 MG/0.5 ML SYRINGE IVP PRN (12:48)
[2019-05-17] MEDS: diphenhydrAMINE 50 MG/ML 1 ML VIAL IVP PRN ×2 (13:07→21:05)
--- NOTE | 2019-05-17 14:53 | HP ---
HISTORY AND PHYSICAL DATE OF SERVICE: 05/17/2019 CHIEF COMPLAINTS: Abdominal pain. HISTORY OF PRESENT ILLNESS: This is a 28-year-old woman with a past medical history of multiple medical problems being followed by Dr. Isi Carolina in the outpatient setting who was recently admitted to [facility]. Possibility of acute pancreatitis was considered. The patient also had hypercholesteremia. The patient also had some minimal metabolic acidosis rather chronic in nature and the patient was treated symptomatically. Patient went home. Patient improved significantly but after going home, the patient continued to have abdominal symptoms. Patient unable to keep anything down. Patient had multiple episodes of vomiting and the patient also had abdominal pain which is situated in the left upper quadrant and the patient came to [facility] and was admitted for further evaluation and treatment. Amylase is negative. The lipase was elevated at 754. The patient admitted for further evaluation and treatment. There is no history of any chest pain, palpitations, headache, loss of consciousness, nausea, diarrhea, fever, rigor or chills at this time. PAST MEDICAL HISTORY: History of asthma, diabetes mellitus, GERD, migraine, constipation, DJD, PTSD. MEDICATIONS: Prior to admission include home medications are: 1. Zanaflex 4 mg b.i.d. p.r.n. 2. Januvia 100 mg q.h.s. .. 3. Metformin 750 mg q.h.s. 4. Topamax 50 mg q.h.s. 5. Imitrex 50 mg daily p.r.n. 6. Seroquel 20 mg p.o. q.h.s. 7. Propranolol 20 mg p.o. q.h.s. 8. Protonix 40 mg p.o. b.i.d. 9. Zofran 4 mg q.6 p.r.n. 10.Prilosec 40 mg p.o. q.h.s. 11.1 application daily p.r.n. 12.Hydrocortisone 1 application daily b.i.d. p.r.n. 13.Vitamin D2 fifty thousand p.o. . history. 14.EpiPen p.r.n. 15.Bentyl 20 mg p.o. b.i.d. 16.Vitamin B12 one thousand mg p.o. q.h.s. ALLERGIES: BEE POLLEN, HALDOL, LATEX, ULTRAM, PREDNISONE, SPIDER VENOM, SULFA, PHENERGAN, AMOXICILLIN, CODEINE, PHOSPHATE, WASPS and ANTS. FAMILY HISTORY: History of migraines in the family. SOCIAL HISTORY: No history of smoking. No alcohol intake. REVIEW OF SYSTEMS: ENT: No diminished vision or hearing. CARDIOVASCULAR: No angina. RESPIRATION: No cough. GI: As mentioned earlier. : No dysuria. NERVOUS SYSTEM: No numbness or weakness. ALLERGY/IMMUNOLOGY: Negative. MUSCULOSKELETAL: As mentioned earlier. HEMATOLOGY: No history of anemia. ENDOCRINE: No history of diabetes or hypothyroid. CONSTITUTIONAL: As mentioned earlier. DERMATOLOGY: Negative. RHEUMATOLOGY: Negative. PSYCHIATRY: As mentioned earlier. PHYSICAL EXAMINATION: Alert and oriented x3. Pulse is 93, blood pressure 98/56, respiration 18, temperature 98.3, pulse ox 94% on room air. HEENT: Conjunctivae normal. Oral mucosa moist. NECK: No jugular venous distention. No lymph node enlargement. CARDIOVASCULAR SYSTEMS: S1, S2, muffled. RESPIRATION: Breath sounds diminished at the bases, a few scattered rhonchi. ABDOMEN: Soft, obese, mild diffuse tenderness in the left upper quadrant. No guarding. No rigidity. No mass palpable. LEGS: No edema, no swelling. NERVOUS SYSTEM: Higher functions as mentioned earlier. Moves all 4 limbs, no focal motor or sensory deficits. SKIN: No ulcer, no rash, or bleeding. JOINTS: No active arthropathy. LABS: WBC is 7.3, hemoglobin is 16.4, glucose 235, 107, calcium is 10.8. AST is 148, ALT is 117. UA is cloudy. ASSESSMENT: 1. Acute upper abdominal pain, possible acute pancreatitis, recurrent pancreatitis. 2. Rule out acute gastritis. 3. Hypertriglyceridemia. 4. Decreased CO2 with possibly chronic metabolic encephalopathy, undetermined origin. 5. Increased AST, ALT. 6. History of asthma. 7. History of diabetes mellitus type 2. 8. History of gastroesophageal reflux disease. 9. Migraine. 10.History of constipation, diarrhea. 11.History of endometriosis. 12.History of lupus. 13.History of laparoscopic surgery for endometriosis. 14.PTSD. 15.Obesity with a body mass index of 39.8. RECOMMENDATION: This is a 28-year-old woman who presented with multiple complex medical issues, will monitor the patient closely, continue with the current medications, symptomatic treatment, p.o. Gastric consultation, repeat labs, possible endoscopes. Guarded prognosis because of multiple complex medical issues. Further recommendations to follow. MMODL / IJN: [id number] / BEL
[2019-05-17 17:07] LABS: Glucose,Whole Blood 114 mg/dL (75-99)
[2019-05-17 17:12] LABS: Hemoglobin A1C 7.7 % (4.0-6.0)
[2019-05-17] MEDS: HYDROmorphone 0.5 MG/0.5 ML SYRINGE IVP PRN ×2 (17:59→21:01)
--- NOTE | 2019-05-17 20:05 | CONS ---
CONSULTATION DATE OF SERVICE: May 17, 2019 REASON FOR CONSULTATION: Abdominal pain. HISTORY OF PRESENT ILLNESS: The patient is a 28-year-old pleasant white female who was just admitted to [facility] about 2 weeks ago when she presented with epigastric pain associated with nausea, vomiting. She was seen by Dr. Barber in consultation 2 weeks ago, was diagnosed with acute pancreatitis, was treated symptomatically and was discharged home. Following discharge, she continued to have persistent epigastric pain. It got better for 2 or 3 days and started having the symptoms again for the last 3 days. Now she has intense nausea, vomiting, not able to tolerate even clear liquids. She has been taking NSAIDS on and off for chronic headaches. Today the pain is mostly in the epigastric area in the left upper quadrant area. She has no bowel movements for the last 3 days. No fever, chills, or night sweats. On admission to the hospital, lipase was slightly elevated at 754. Amylase was normal. PAST MEDICAL HISTORY: Significant for diabetes mellitus, GERD, hypertension, posttraumatic stress disorder, anxiety and depression, degenerative joint disease and asthma. MEDICATIONS: At home include Zanaflex, Januvia, metformin, Topamax, Imitrex, Seroquel, Propanol, Protonix, Zofran, Prilosec, hydrocortisone, vitamin D2, EpiPen, Bentyl. ALLERGIES: HALDOL, ULTRAM, PREDNISONE, SPIDER VENOM, SULFA, PHENERGAN, AMOXICILLIN, CODEINE. FAMILY HISTORY: Mom has migraines. SOCIAL HISTORY: No smoking. No alcohol use. PAST SURGICAL HISTORY: EGD [place] [address] Reeves that showed gastritis. Colonoscopy by me in 2018 was unremarkable. REVIEW OF SYSTEMS: CARDIOPULMONARY: No chest pain, shortness of breath. no dysuria or hematuria. MUSCULOSKELETAL: Unremarkable. SKIN unremarkable. ENDOCRINE unremarkable. PSYCHIATRIC unremarkable. NEUROLOGY unremarkable. ENT/vision unremarkable. CONSTITUTIONAL: No recent weight loss. No fever, chills, night sweats. PHYSICAL EXAMINATION: Appears comfortable in no apparent distress. Vital signs stable. Blood pressure is 132/86, pulse rate 85 per minute. HEENT: Examination unremarkable, conjunctivae are pink, sclerae anicteric. Oral cavity no lesions. NECK: No JVD or lymph node enlargement. CHEST was clear to auscultation. HEART: Regular rate and rhythm. ABDOMEN: Soft. Bowel sounds are positive. No organomegaly. Mild tenderness in the epigastric area. EXTREMITIES: No pedal edema. SKIN no rashes. NEUROLOGIC: Alert and oriented x3. No focal deficits. LABS: From yesterday WBC 7.3, hemoglobin 16.4, platelets normal. Lipase is 754. Amylase is normal. ALT AND AST elevated at 148 and 1.7 respectively. T-bilirubin is normal. Previous hospitalization, she did have a CT of the abdomen and pelvis done. IMPRESSION: 1. Epigastric pain for the last 2 weeks duration. Mild elevation of lipase consistent with acute pancreatitis. She did have ultrasound of the gallbladder done 2 weeks ago that was normal with no evidence of gallstones. CT of the abdomen also did not show any evidence of gallstones during the past hospitalization. 2. Mild elevation of serum transaminases, which have been persistent for the last 3 weeks. Rule out chronic liver disease. 3. History of diabetes mellitus. 4. History of hypertension. 5. History of anxiety, depression and posttraumatic stress disorder. RECOMMENDATIONS: 1. Start on a clear liquid diet. 2. IV Protonix 40 mg q.12 hours. 3. Because of the persistent epigastric pain, we will proceed with an upper endoscopy tomorrow. I discussed with the patient risks, benefits and complications and she is agreeable to it. Thank you for this consultation. MMODL / IJN: [id number] /
[2019-05-17 20:28] LABS: Glucose,Whole Blood 135 mg/dL (75-99)
[2019-05-17] MEDS: PANTOPRAZOLE 40 MG/10 ML VIAL IVP SCH (21:07)
[2019-05-17] MEDS: DOCUSATE 100 MG CAP PO PRN (21:12)
[2019-05-17] MEDS: CYANOCOBALAMIN 500 MCG TAB PO SCH (21:12)
[2019-05-17] MEDS: QUEtiapine 100 MG TAB PO SCH (21:13)
[2019-05-17] MEDS: LINAGLIPTIN 5 MG TABLET PO SCH (21:13)
[2019-05-17] MEDS: PROPRANOLOL 20 MG TAB PO SCH (21:14)
[2019-05-17] MEDS: TOPIRAMATE 25 MG TAB PO SCH (21:14)
[2019-05-17] MEDS: tiZANidine 4 MG TAB PO PRN (21:41)
[2019-05-18] MEDS: HYDROmorphone 0.5 MG/0.5 ML SYRINGE IVP PRN ×6 (02:55→20:55)
[2019-05-18] MEDS: diphenhydrAMINE 50 MG/ML 1 ML VIAL IVP PRN ×3 (02:56→17:04)
[2019-05-18] MEDS: SODIUM CHLORIDE 0.9% 1,000 ML IV SCH ×3 (03:04→20:22)
[2019-05-18] MEDS: ONDANSETRON 4 MG/2 ML VIAL IVP PRN (06:17)
[2019-05-18 06:45] LABS: Glucose,Whole Blood 134 mg/dL (75-99)
[2019-05-18] MEDS: INSULIN ASPART (NovoLOG) 100 UNIT/ML VIAL SQ SCH ×4 (06:49→21:08)
[2019-05-18] MEDS: PANTOPRAZOLE 40 MG/10 ML VIAL IVP SCH ×2 (09:58→20:58)
[2019-05-18] MEDS: DICYCLOMINE 20 MG TAB PO SCH ×2 (10:06→20:51)
[2019-05-18] MEDS: ERGOCALCIFEROL 50,000 UNIT CAP PO SCH ×2 (10:06→20:54)
[2019-05-18 10:26] LABS: ALT 79 U/L (4-34); AST 97 U/L (14-36); African American GFR (CKD) >90 (>60 ml/min/1.73 sqM); Albumin 3.1 g/dL (3.5-5.0); Alkaline Phosphatase 55 U/L (38-126); Amylase <30 U/L (30-110); Anion Gap 7 mmol/L; Blood Urea Nitrogen 6 mg/dL (7-17); Calcium 9.3 mg/dL (8.4-10.2); Carbon Dioxide 21 mmol/L (22-30); Chloride 111 mmol/L (98-107); Glucose 105 mg/dL (74-99); Non-African American GFR(CKD) >90 (>60 ml/min/1.73 sqM); Sodium 139 mmol/L (137-145); Total Bilirubin 0.7 mg/dL (0.2-1.3); Total Protein 5.8 g/dL (6.3-8.2)
[2019-05-18 10:29] LABS: Basophils # (A) 0.1 k/uL (0-0.2); Basophils % (A) 1 %; Eosinophils # (A) 0.1 k/uL (0-0.7); Eosinophils % (A) 2 %; HCT 36.2 % (34.0-46.0); Lymphocytes # (A) 3.1 k/uL (1.0-4.8); Lymphocytes % (A) 55 %; MCH 32.1 pg (25.0-35.0); MCV 94.4 fL (80.0-100.0); Mean Platelet Volume 9.2; Monocytes # (A) 0.2 k/uL (0-1.0); Monocytes % (A) 4 %; Neutrophils % (A) 36 %; Platelet Count 152 k/uL (150-450); RBC 3.83 m/uL (3.80-5.40); RDW 12.5 % (11.5-15.5); WBC 5.6 k/uL (3.8-10.6)
[2019-05-18 10:31] LABS: HGB 12.3 gm/dL (11.4-16.0)
[2019-05-18 10:46] LABS: Potassium 3.7 mmol/L (3.5-5.1)
[2019-05-18 12:24] LABS: Glucose,Whole Blood 110 mg/dL (75-99)
[2019-05-18] MEDS ORDERED: LIDOCAINE 1% INJ 10MG/ML (20 ML MDV) ONE (12:39)
[2019-05-18] MEDS ORDERED: PROPOFOL 10 MG/ML 20 ML VIAL IV ONE (12:39)
--- NOTE | 2019-05-18 12:50 | P.PCN ---
Date of Procedure: 05/18/19 Procedure(s) Performed: BRIEF HISTORY: Patient is a 28-year-old, pleasant,, admitted hospital with chronic epigastric pain for the last 2 weeks' duration. Noted to have mild elevation of serum lipase. Was treated with acute pancreatitis and discharged him about 2 weeks ago but continues to have nausea vomiting increased appetite and epigastric pain and hence scheduled for an upper endoscopy to evaluate further. PROCEDURE PERFORMED: Esophagogastroduodenoscopy with biopsy. PREOPERATIVE DIAGNOSIS: Epigastric pain of 3 weeks' duration. IV sedation per anesthesia. PROCEDURE: After informed consent was obtained, the patient was brought into the endoscopy unit. IV sedation was administered by Anesthesia under continuous monitoring. Initially the Olympus GIF-140 video endoscope was inserted into the mouth. Esophagus intubated without any difficulty. It was gradually advanced into the stomach and duodenum and carefully examined. The bulb and the second part of the duodenum appeared normal. The scope at this time was withdrawn to the stomach, adequately insufflated with air, and upon careful examination, mucosa of the antrum, had mild gastritis and biopsies were done from this area. The body, cardia and the fundus appeared normal. The scope was then withdrawn into the esophagus. The GE junction was located at 39 cm from the incisors. The esophagus appeared normal. There were no erosions or ulcerations seen, biopsies were done from the distal esophagus and the patient tolerated the procedure well. IMPRESSION: 1. Mild antral gastritis. 2. No evidence of esophagitis or peptic ulcer disease. RECOMMENDATIONS: The findings of this examination were discussed with the patient . She was advised to follow with the biopsy results. Diet will be advanced as tolerated. Continue with antiemetics and Protonix daily.
[2019-05-18] MEDS ORDERED: IV FLUID CONTINUATION 1,000 ML IV ONE (12:51)
[2019-05-18 17:07] LABS: Glucose,Whole Blood 142 mg/dL (75-99)
[2019-05-18] MEDS ORDERED: LORazepam 1 MG TAB PO PRN (17:15)
[2019-05-18] MEDS ORDERED: LORazepam 1 MG TAB PO SCH (18:00)
--- NOTE | 2019-05-18 18:50 | PN ---
PROGRESS NOTE DATE OF SERVICE: 05/18/2019 This 28-year-old woman with a past medical history of multiple medical problems was admitted with abdominal pain. Patient had features of mild pancreatitis. EGD done by Dr. Bocanegra showed some gastritis. No chest pain. No palpitations. No fever. PHYSICAL EXAMINATION: Alert and oriented x3. Pulse is 101, blood pressure 110/74, respirations 16, temperature 98.8, pulse ox 96% on room air. HEENT: Conjunctivae normal. NECK: No jugular venous distention. CARDIOVASCULAR SYSTEM: S1, S2 muffled. RESPIRATORY SYSTEM: Breath sounds diminished at the bases. No rhonchi. No crackles. ABDOMEN: Soft. Mild diffuse tenderness, especially on the left side of the abdomen. No mass palpable. NERVOUS SYSTEM: No focal deficit. LABS: CBC within normal limits. Amylase less than 30. Lipase 480. AST and ALT elevated. ASSESSMENT: 1. Acute abdominal pain, possibly acute pancreatitis or recurrent pancreatitis. 2. Acute gastritis in the EGD. 3. Hypertriglyceridemia. 4. Decreased carbon dioxide with possibly chronic metabolic acidosis, undetermined origin. 5. Increased AST, ALT. 6. History of asthma. 7. Diabetes mellitus, type 2. 8. History of gastroesophageal reflux disease. 9. History of migraine. 10.History of constipation, diarrhea. 11.History of endometriosis. 12.History of lupus. 13.History of laparoscopic surgery for endometriosis. 14.Post-traumatic stress disorder. 15.Obesity with body mass index of 39.8. RECOMMENDATIONS AND DISCUSSION: I recommend to continue current medications, continue with the monitoring, symptomatic treatment. Otherwise at this time I recommend repeat labs in the morning. Continue with the diet per Gastroenterology. Guarded prognosis because of multiple complex medical issues. Further recommendations to follow. MMODL / IJN: [id number] /
[2019-05-18] MEDS: CYANOCOBALAMIN 500 MCG TAB PO SCH (20:51)
[2019-05-18] MEDS: PROPRANOLOL 20 MG TAB PO SCH (20:52)
[2019-05-18] MEDS: LINAGLIPTIN 5 MG TABLET PO SCH (20:52)
[2019-05-18] MEDS: DOCUSATE 100 MG CAP PO PRN (20:52)
[2019-05-18] MEDS: QUEtiapine 100 MG TAB PO SCH (20:52)
[2019-05-18] MEDS: TOPIRAMATE 25 MG TAB PO SCH (20:53)
[2019-05-18 21:03] LABS: Glucose,Whole Blood 144 mg/dL (75-99)
[2019-05-18] MEDS: tiZANidine 4 MG TAB PO PRN (22:23)
[2019-05-19] MEDS: HYDROmorphone 0.5 MG/0.5 ML SYRINGE IVP PRN ×6 (00:51→23:26)
[2019-05-19] MEDS: diphenhydrAMINE 50 MG/ML 1 ML VIAL IVP PRN ×4 (00:51→20:55)
[2019-05-19] MEDS: SODIUM CHLORIDE 0.9% 1,000 ML IV SCH ×4 (06:31→22:12)
[2019-05-19 06:41] LABS: Glucose,Whole Blood 135 mg/dL (75-99)
[2019-05-19] MEDS: INSULIN ASPART (NovoLOG) 100 UNIT/ML VIAL SQ SCH ×4 (06:41→20:49)
[2019-05-19 07:41] LABS: Basophils % (A) 0 %; Eosinophils # (A) 0.1 k/uL (0-0.7); Eosinophils % (A) 2 %; HCT 38.3 % (34.0-46.0); HGB 12.5 gm/dL (11.4-16.0); Lymphocytes # (A) 2.5 k/uL (1.0-4.8); Lymphocytes % (A) 52 %; MCHC 32.6 g/dL (31.0-37.0); MCV 95.2 fL (80.0-100.0); Mean Platelet Volume 8.7; Monocytes # (A) 0.2 k/uL (0-1.0); Monocytes % (A) 5 %; Neutrophils # (A) 1.8 k/uL (1.3-7.7); Neutrophils % (A) 38 %; Platelet Count 150 k/uL (150-450); RBC 4.03 m/uL (3.80-5.40); RDW 12.6 % (11.5-15.5); WBC 4.8 k/uL (3.8-10.6)
[2019-05-19 07:49] LABS: ALT 66 U/L (4-34); AST 71 U/L (14-36); African American GFR (CKD) >90 (>60 ml/min/1.73 sqM); Albumin 3.3 g/dL (3.5-5.0); Alkaline Phosphatase 58 U/L (38-126); Amylase <30 U/L (30-110); Anion Gap 8 mmol/L; Blood Urea Nitrogen 3 mg/dL (7-17); Calcium 9.6 mg/dL (8.4-10.2); Carbon Dioxide 21 mmol/L (22-30); Chloride 110 mmol/L (98-107); Glucose 152 mg/dL (74-99); Non-African American GFR(CKD) >90 (>60 ml/min/1.73 sqM); Potassium 3.5 mmol/L (3.5-5.1); Sodium 139 mmol/L (137-145); Total Bilirubin 0.6 mg/dL (0.2-1.3); Total Protein 6.2 g/dL (6.3-8.2)
[2019-05-19] MEDS: PANTOPRAZOLE 40 MG/10 ML VIAL IVP SCH ×2 (09:00→20:51)
[2019-05-19] MEDS: DICYCLOMINE 20 MG TAB PO SCH ×2 (09:00→20:49)
[2019-05-19] MEDS: ONDANSETRON 4 MG/2 ML VIAL IVP PRN ×2 (09:08→19:06)
[2019-05-19 11:49] LABS: Glucose,Whole Blood 107 mg/dL (75-99)
[2019-05-19 17:31] LABS: Glucose,Whole Blood 160 mg/dL (75-99)
--- NOTE | 2019-05-19 19:04 | PN ---
PROGRESS NOTE DATE OF SERVICE: 05/19/2019 This 28-year-old woman who presented with abdominal pain, possible acute gastritis and acute on chronic pancreatitis is being closely monitored. No chest pain. No palpitations. No fever. EGD and biopsies were done by Dr. Bocanegra yesterday. PHYSICAL EXAMINATION: Alert and oriented x3. Pulse 80, blood pressure 109/75, respirations 16, temperature 98 degrees, pulse ox 94% on room air. HEENT: Conjunctivae normal. NECK: No jugular venous distention. CARDIOVASCULAR SYSTEM: S1, S2 muffled. RESPIRATORY SYSTEM: Breath sounds diminished at the bases. No rhonchi. No crackles. ABDOMEN: Soft. Mild diffuse tenderness in the upper abdomen. No mass palpable. LEGS: No edema. No swelling. NERVOUS SYSTEM: No focal deficit. LABS: CBC within normal limits. Lipase is 457. AST and ALT are 71 and 66, which is improving. ASSESSMENT: 1. Acute abdominal pain, possibly acute pancreatitis and recurrent pancreatitis. 2. Acute gastritis on the esophagogastroduodenoscopy. 3. Hypertriglyceridemia. 4. Decreased carbon dioxide with possibly chronic metabolic acidosis, undetermined origin. 5. Increased AST, ALT. 6. History of asthma. 7. History of diabetes mellitus, type 2. 8. Gastroesophageal reflux disease. 9. History of migraine. 10.History of constipation, diarrhea. 11.History of endometriosis. 12.History of lupus. 13.History of laparoscopic surgery for endometriosis. 14.Post-traumatic stress disorder. 15.Obesity with body mass index of 39.8. 16. control pill implant, left forearm. RECOMMENDATIONS AND DISCUSSION: In this 28-year-old woman who presented with multiple complex medical issues, we will monitor the patient closely, continue the current medications, continue with symptomatic treatment. Otherwise at this time I recommend advancing the diet to a soft, bland diet. AST and ALT are improving. Closely follow with Gastroenterology. Prognosis guarded. Further recommendations to follow. MMODL / IJN: [id number] /
[2019-05-19 20:04] LABS: Glucose,Whole Blood 131 mg/dL (75-99)
[2019-05-19] MEDS: CYANOCOBALAMIN 500 MCG TAB PO SCH (20:49)
[2019-05-19] MEDS: HEPARIN SODIUM,PORCINE 5,000 UNIT/ML 1 ML VIAL SQ SCH (20:50)
[2019-05-19] MEDS: LINAGLIPTIN 5 MG TABLET PO SCH (20:51)
[2019-05-19] MEDS: TOPIRAMATE 25 MG TAB PO SCH (20:52)
[2019-05-19] MEDS: PROPRANOLOL 20 MG TAB PO SCH (20:52)
[2019-05-19] MEDS: QUEtiapine 100 MG TAB PO SCH (20:52)
--- NOTE | 2019-05-19 21:04 | PN ---
PROGRESS NOTE DATE OF DICTATION: May 19, 2019 Patient is a 28-year-old pleasant white female admitted to the hospital with nausea, vomiting, and abdominal pain and mild elevation of lipase. She underwent an upper endoscopy by me 2 days ago that showed mild gastritis. She has been on Protonix 40 mg twice daily. Her diet was advanced as tolerated. She is doing better. She had some abdominal pain after eating a regular lunch today. No emesis. PHYSICAL EXAMINATION: Blood pressure 113/74, pulse 82, temperature 98.7. HEENT examination unremarkable. Conjunctivae pink. Sclerae anicteric. Oral cavity no lesions. NECK: No JVD or lymph node enlargement. CHEST: Clear to auscultation. HEART: Regular rate and rhythm. ABDOMEN: Soft. Bowel sounds are positive. No organomegaly. Mild tenderness in the left upper quadrant area. EXTREMITIES: No pedal edema. SKIN no rashes. NEUROLOGIC: Alert and oriented x3. No focal deficits. LABS: WBC 4.8, hemoglobin 12.5, platelets normal. Basic metabolic panel is within normal limits. ALT and AST are 71 and 66 respectively. Lipase is 457. IMPRESSION: 1. Mild acute pancreatitis, resolving. 2. Chronic epigastric pain. Recent EGD showed mild gastritis. 3. Mild elevation of serum transaminases possibly related to hepatic steatosis. RECOMMENDATIONS: 1. Advance diet as tolerated. 2. Small frequent meals. 3. Continue Protonix 40 mg twice daily. 4. Antiemetics as needed. 5. She can be discharged home tomorrow with outpatient followup in 2 weeks. Thank you for this consultation. MMODL / IJN: [id number] /
[2019-05-19] MEDS: tiZANidine 4 MG TAB PO PRN (22:12)
[2019-05-19] MEDS: DOCUSATE 100 MG CAP PO PRN (23:27)
[2019-05-20] MEDS: ONDANSETRON 4 MG/2 ML VIAL IVP PRN ×2 (01:49→09:36)
[2019-05-20] MEDS: SODIUM CHLORIDE 0.9% 1,000 ML IV SCH (05:19)
[2019-05-20] MEDS: HYDROmorphone 0.5 MG/0.5 ML SYRINGE IVP PRN ×2 (05:26→09:37)
[2019-05-20 06:41] LABS: Glucose,Whole Blood 144 mg/dL (75-99)
[2019-05-20] MEDS: INSULIN ASPART (NovoLOG) 100 UNIT/ML VIAL SQ SCH (06:43)
[2019-05-20] MEDS: diphenhydrAMINE 50 MG/ML 1 ML VIAL IVP PRN (06:46)
[2019-05-20 07:22] LABS: Basophils % (A) 1 %; Eosinophils # (A) 0.2 k/uL (0-0.7); Eosinophils % (A) 3 %; HCT 38.3 % (34.0-46.0); HGB 12.8 gm/dL (11.4-16.0); Lymphocytes # (A) 2.7 k/uL (1.0-4.8); Lymphocytes % (A) 51 %; MCH 31.9 pg (25.0-35.0); MCHC 33.5 g/dL (31.0-37.0); Mean Platelet Volume 8.5; Monocytes # (A) 0.2 k/uL (0-1.0); Monocytes % (A) 3 %; Neutrophils # (A) 2.1 k/uL (1.3-7.7); Neutrophils % (A) 40 %; Platelet Count 165 k/uL (150-450); RBC 4.03 m/uL (3.80-5.40); RDW 12.6 % (11.5-15.5); WBC 5.2 k/uL (3.8-10.6)
[2019-05-20 07:35] LABS: ALT 56 U/L (4-34); AST 59 U/L (14-36); African American GFR (CKD) >90 (>60 ml/min/1.73 sqM); Albumin 3.4 g/dL (3.5-5.0); Alkaline Phosphatase 63 U/L (38-126); Amylase <30 U/L (30-110); Anion Gap 11 mmol/L; Blood Urea Nitrogen 2 mg/dL (7-17); Calcium 9.8 mg/dL (8.4-10.2); Carbon Dioxide 16 mmol/L (22-30); Chloride 109 mmol/L (98-107); Glucose 137 mg/dL (74-99); Non-African American GFR(CKD) >90 (>60 ml/min/1.73 sqM); Potassium 3.6 mmol/L (3.5-5.1); Sodium 136 mmol/L (137-145); Total Bilirubin 0.5 mg/dL (0.2-1.3); Total Protein 6.5 g/dL (6.3-8.2)
[2019-05-20] MEDS: PANTOPRAZOLE 40 MG/10 ML VIAL IVP SCH (09:36)
[2019-05-20] MEDS: HEPARIN SODIUM,PORCINE 5,000 UNIT/ML 1 ML VIAL SQ SCH (09:37)
[2019-05-20] MEDS: DICYCLOMINE 20 MG TAB PO SCH (09:54)
[2019-05-20 10:51] VITALS: BP 94/69; PULSE 81; RESP 20; TEMP 97.8
--- NOTE | 2019-05-20 23:26 | DS ---
DISCHARGE SUMMARY FINAL DIAGNOSES: 1. Acute abdominal pain, possible acute recurrent pancreatitis and acute pancreatitis. 2. Acute gastritis on the EGD. 3. Hypertriglyceridemia. 4. Decreased CO2, possibly chronic metabolic acidosis of undetermined origin. 5. Increased AST/ALT improved. 6. History of asthma. 7. History of diabetes type 2. 8. Gastroesophageal reflux disease. 9. History of migraines. 10.History of constipation, diarrhea. 11.History of endometriosis. 12.History lupus. 13.History of laparoscopic surgery for endometriosis. 14.Posttraumatic stress disorder. 15.Obesity with body mass index of 39.8. 16. control pill implant left forearm. DISCHARGE DISPOSITION: The patient is being discharged in stable condition with guarded prognosis. HISTORY OF PRESENT ILLNESS: This 28 -year-old woman with a past medical history of multiple medical problems admitted with acute abdominal pain. The patient had features of acute pancreatitis and gastritis treated symptomatically improved significantly. Dr. Bocanegra saw the patient and recommend outpatient followup. On exam, vitals are stable. Cardiovascular: S1, S2. Abdomen soft. Nervous system: No focal deficits. DISCHARGE ADVICE AND MEDICATIONS: 1. Diet is diet is soft, bland. 2. Follow up with Dr. Isi Carolina in 2 to 3 days with followup labs CBC, CMP, amylase, lipase. 3. Follow up with Dr. Bocanegra as recommended. DISCHARGE MEDICATIONS: 1. Bentyl 20 mg p.o. b.i.d. p.r.n. 2. EpiPen p.r.n. 3. Hydrocortisone cream as before. 4. Imitrex as before. 5. Januvia 100 mg at bedtime. 6. Metformin 750 mg q.h.s. 7. Cream as before. 8. Prilosec 40 mg q.h.s. 9. Propranolol 20 mg q.h.s. 10.Seroquel 300 mg q.h.s. 11.Topamax 50 mg q.h.s. 12.Vitamin B12 1000 mcg p.o. q.h.s. 13.Vitamin D2 50,000 p.o. . 14.Zanaflex 4 mg p.o. b.i.d. p.r.n. 15.Zofran p.r.n. 16.Colace 100 mg p.o. daily. 17.Protonix 40 mg p.o. b.i.d. Once again, the patient is being discharged in stable condition with guarded prognosis. MMDERICKL / DORINDAN: [id number] / MTDHerberth
== END 2019-05-20 12:18 | disposition home or self-care (01) | DRG 391 ==
LOC: EC 17:59 → 6PED 19:59 → OBSVTOIN 05-18 09:44
PROVIDERS: ADMIT Hospitalist; ATTEND Hospitalist
DX: K29.00 Acute gastritis without bleeding (principal); K85.90 Acute pancreatitis without necrosis or infection, unspecified; K21.9 Gastro-esophageal reflux disease without esophagitis; J45.909 Unspecified asthma, uncomplicated; I10 Essential (primary) hypertension; G89.29 Other chronic pain; G43.909 Migraine, unspecified, not intractable, without status migrainosus; E78.1 Pure hyperglyceridemia; E66.9 Obesity, unspecified; E11.9 Type 2 diabetes mellitus without complications; M19.90 Unspecified osteoarthritis, unspecified site; E78.00 Pure hypercholesterolemia, unspecified; F43.10 Post-traumatic stress disorder, unspecified; Z68.39 Body mass index [BMI] 39.0-39.9, adult; Z79.84 Long term (current) use of oral hypoglycemic drugs; Z82.49 Family history of ischemic heart disease and other diseases of the circulatory system; Z79.899 Other long term (current) drug therapy; Z91.040 Latex allergy status; Z88.5 Allergy status to narcotic agent; Z88.0 Allergy status to penicillin; Z88.2 Allergy status to sulfonamides; Z88.8 Allergy status to other drugs, medicaments and biological substances; Z91.048 Other nonmedicinal substance allergy status; Z98.890 Other specified postprocedural states
CPT/HCPCS: 36415; 43239; 80053; 81001; 81025; 82150; 83036; 83690; 85025; 87086; 88305; 96361; 96374; 96375; 99285

== ENCOUNTER 2019-05-28 11:50 | Emergency (ER) | payer OTHER ==
[2019-05-28 11:58] VITALS: TEMP 97.8
[2019-05-28] MEDS ORDERED: SODIUM CHLORIDE 0.9% 500 ML 500 ML IV STA (12:26)
[2019-05-28] MEDS ORDERED: SODIUM CHLORIDE 0.9% 1,000 ML IV STA (12:26)
[2019-05-28] MEDS ORDERED: HYDROmorphone 0.5 MG/0.5 ML SYRINGE IVP STA ×2 (12:28→13:56)
[2019-05-28 13:17] LABS: Basophils % (A) 1 %; Eosinophils # (A) 0.1 k/uL (0-0.7); Eosinophils % (A) 2 %; HCT 42.1 % (34.0-46.0); HGB 14.1 gm/dL (11.4-16.0); Lymphocytes # (A) 2.2 k/uL (1.0-4.8); Lymphocytes % (A) 37 %; MCH 31.3 pg (25.0-35.0); MCHC 33.5 g/dL (31.0-37.0); MCV 93.3 fL (80.0-100.0); Mean Platelet Volume 8.7; Monocytes # (A) 0.2 k/uL (0-1.0); Monocytes % (A) 3 %; Neutrophils # (A) 3.2 k/uL (1.3-7.7); Neutrophils % (A) 55 %; Platelet Count 189 k/uL (150-450); RBC 4.51 m/uL (3.80-5.40); RDW 12.6 % (11.5-15.5); WBC 5.8 k/uL (3.8-10.6)
[2019-05-28 13:25] LABS: Bacteria,Urine Many /hpf; Mucus,Urine Moderate /hpf; RBC,Urine 4 /hpf (0-5); Squamous Epithelial Cell,Urine 31 /hpf (0-4); WBC,Urine 14 /hpf (0-5)
[2019-05-28 13:28] LABS: Appearance,Urine Slightly Cloudy (Clear); Color,Urine Yellow; Glucose,Urine (UA) Negative (Negative); Protein,Urine 1+ (Negative)
[2019-05-28 13:29] LABS: Bilirubin,Urine Negative (Negative); Blood,Urine Negative (Negative); Ketones,Urine Negative (Negative); Leukocyte Esterase,Urine Large (Negative); Nitrite,Urine Negative (Negative)
[2019-05-28 13:35] LABS: ALT 52 U/L (4-34); AST 79 U/L (14-36); African American GFR (CKD) >90 (>60 ml/min/1.73 sqM); Albumin 4.3 g/dL (3.5-5.0); Alkaline Phosphatase 91 U/L (38-126); Amylase 51 U/L (30-110); Anion Gap 11 mmol/L; Blood Urea Nitrogen 9 mg/dL (7-17); Calcium 10.1 mg/dL (8.4-10.2); Carbon Dioxide 19 mmol/L (22-30); Chloride 109 mmol/L (98-107); Glucose 138 mg/dL (74-99); Non-African American GFR(CKD) >90 (>60 ml/min/1.73 sqM); Potassium 3.9 mmol/L (3.5-5.1); Sodium 139 mmol/L (137-145); Total Bilirubin 0.6 mg/dL (0.2-1.3); Total Protein 7.5 g/dL (6.3-8.2)
--- NOTE | 2019-05-28 13:41 | XR ---
EXAMINATION TYPE: XR abdomen acute w cxr , 4 VIEWS DATE OF EXAM ORDERED: 05/28/2019 HISTORY: LUQ pain. COMPARISON: None. FINDINGS: The lungs are clear. Pleural space are clear. The heart is not enlarged. Within the abdomen, the abdominal gas pattern is within normal limits. There is no evidence of obstru ction or free air. No unusual calcifications are seen. There are scattered air-fluid levels present. IMPRESSION: I CANNOT EXCLUDE A MILD DEGREE OF ILEUS.
[2019-05-28 13:57] VITALS: BP 111/79; PULSE 92; RESP 16
--- NOTE | 2019-05-28 14:07 | ED ---
Abdominal Pain HPI - General Chief Complaint: Abdominal Pain Stated Complaint: abdominal pain Time Seen by Provider: 05/28/19 11:58 Source: patient Mode of arrival: ambulatory Limitations: no limitations - History of Present Illness Initial Comments: 28-year-old female presenting today for chief complaint of left upper quadrant abdominal pain states it feels like when her lipase is elevated the past. She states she was told by GI that is most likely secondary to medication such as Topamax which she takes for psychiatric symptoms. Patient states she has been trying to taper off her Topamax. Patient denies any diarrhea patient states she has had some vomiting with eating. Patient sates she has been able to tolerate water. Patient denies any other symptoms denies chest pain shortness of breath melena hematochezia fevers. Upon arrival patient appears well there is no signs of acute distress. - Related Data Home Medications Medication Instructions Recorded Confirmed Omeprazole [PriLOSEC] 40 mg PO HS 07/29/16 05/28/19 EPINEPHrine [Epipen 2-Mike] 0.3 mg IM ONCE PRN 10/16/18 05/28/19 QUEtiapine FUMARATE [SEROquel] 300 mg PO HS 11/18/18 05/28/19 Ondansetron [Zofran ODT] 4 mg PO Q6H PRN 02/07/19 05/28/19 metFORMIN HCL [metFORMIN HCL ER] 750 mg PO HS 02/07/19 05/28/19 sitaGLIPtin [Januvia] 100 mg PO HS 02/07/19 05/28/19 Cyanocobalamin (Vitamin B-12) 1,000 mcg PO HS 05/08/19 05/28/19 [Vitamin B-12] Ergocalciferol [Vitamin D2 50,000 unit PO TH 05/08/19 05/28/19 (DRISDOL)] Hydrocortisone Cream 1 applic TOPICAL BID PRN 05/08/19 05/28/19 [Hydrocortisone 2.5% Cream] Ketoconazole 2% Cream [Nizoral 2%] 1 applic TOPICAL DAILY PRN 05/08/19 05/28/19 Propranolol HCl 20 mg PO HS 05/08/19 05/28/19 SUMAtriptan SUCCINATE [Imitrex] 50 mg PO DIRECTED PRN 05/08/19 05/28/19 Topiramate [Topamax] 50 mg PO HS 05/08/19 05/28/19 tiZANidine [Zanaflex] 4 mg PO BID PRN 05/08/19 05/28/19 Dicyclomine [Bentyl] 20 mg PO BID 05/16/19 05/28/19 Previous Rx's Medication Instructions Recorded Pantoprazole [Protonix] 40 mg PO BID #60 tablet. 05/12/19 Docusate [Colace] 100 mg PO DAILY PRN #30 cap 05/20/19 Allergies Allergy/AdvReac Type Severity Reaction Status Date / Time bee pollen Allergy Severe Anaphylaxis Verified 05/28/19 12:40 haloperidol [From Haldol] Allergy Severe QUIT Verified 05/28/19 12:40 BREATHING haloperidol lactate Allergy Severe QUIT Verified 05/28/19 12:40 [From Haldol] BREATHING latex Allergy Severe RASH-THROAT Verified 05/28/19 12:40 CLOSES tramadol Allergy Severe Nausea & Verified 05/28/19 12:40 Vomiting prednisone Allergy THROAT Verified 05/28/19 12:40 SWELLS spider venom Allergy Swelling Verified 05/28/19 12:40 Sulfa (Sulfonamide Allergy THROAT Verified 05/28/19 12:40 Antibiotics) SWELLS promethazine HCl AdvReac Severe Nausea & Verified 05/28/19 12:40 [From Phenergan] Vomiting amoxicillin AdvReac Nausea & Verified 05/28/19 12:40 Vomiting codeine phosphate AdvReac Nausea & Verified 05/28/19 12:40 [From Tylenol-Codeine #3] Vomiting WASP Allergy Severe Swelling Uncoded 05/28/19 11:54 ANTS Allergy Mild Anaphylaxis Uncoded 05/28/19 11:54 Review of Systems ROS Statement: Those systems with pertinent positive or pertinent negative responses have been documented in the HPI. ROS Other: All systems not noted in ROS Statement are negative. Past Medical History Past Medical History: Asthma, Diabetes Mellitus, GERD/Reflux Additional Past Medical History / Comment(s): migraines, constipation/diarrhea, degenerative disk disease, endometriosis, lupus, pancreatitis History of Any Multi-Drug Resistant Organisms: None Reported Past Surgical History: Orthopedic Surgery Additional Past Surgical History / Comment(s): laparoscopc surgery for endometriosis, cyst removed from left foot, EGD Past Anesthesia/Blood Transfusion Reactions: Previous Problems w/ Anesthesia Additional Past Anesthesia/Blood Transfusion Reaction / Comment(s): hard to wake up for 48-72 hours after laparoscopic surgery-was in hosp. for 3 days Past Psychological History: Anxiety, Depression, PTSD Smoking Status: Never smoker Past Alcohol Use History: None Reported Past Drug Use History: None Reported - Past Family History Mother Family Medical History: No Reported History Additional Family Medical History / Comment(s): hx migraines Father Family Medical History: Coronary Artery Disease (CAD), Hypertension Additional Family Medical History / Comment(s): ddd, alcoholism & drug use General Exam - General Exam Comments Initial Comments: General: The patient is awake and alert, in no distress, and does not appear acutely ill. Eye: +3 mm pupils are equal, round and reactive to light, extra-ocular movements are intact. No nystagmus. There is normal conjunctiva bilaterally. No signs of icterus. Ears, nose, mouth and throat: There are moist mucous membranes and no oral lesions. Neck: The neck is supple, there is no tenderness or JVD. Cardiovascular: There is a regular rate and rhythm. No murmur, rub or gallop is appreciated. Respiratory: Lungs are clear to auscultation, respirations are non-labored, breath sounds are equal. No wheezes, stridor, rales, or rhonchi. Gastrointestinal: Soft, non-distended, mild tenderness to epigastric and LUQ of the abdomen without masses or organomegaly noted. There is no rebound or guarding present. Musculoskeletal: Normal ROM, no tenderness. Strength 5/5. Sensation intact. Pulses equal bilaterally 2+. Neurological: A&O x 3. CN II-XII intact grossly, There are no obvious motor or sensory deficits. Coordination appears grossly intact. Speech is normal. Skin: Skin is warm and dry and no rashes or lesions are noted. Psychiatric: Cooperative, appropriate mood & affect, normal judgment. Limitations: no limitations Course Vital Signs 05/28/19 05/28/19 11:54 13:56 Temperature 97.8 F Pulse Rate 91 92 Respiratory 18 16 Rate Blood Pressure 102/78 111/79 O2 Sat by Pulse 97 99 Oximetry Medical Decision Making - Medical Decision Making 28-year-old female presenting today for chief complaint of abdominal pain lipase elevated. Laboratory studies stable. Patient appears well pain controlled. Patient given IV fluids. Discussed case with Dr. Taylor at this time he recommends the patient be discharged given this is be, a chronic issue and follow-up with GI outpatient patient has upcoming appointment on Wednesday. I recommend clinical Wednesday to see if she can schedule this earlier and obtain outpatient lipase if pain is uncontrolled or has persistent vomiting unable to tolerate oral intake she is to return to the emergency department immediately. Patient verbalized understanding and was agreeable patient was discharged appearing well, agreeable and preferring discharge at this time - Lab Data Result diagrams: 05/28/19 13:05 05/28/19 13:05 Lab Results 05/28/19 05/28/19 05/28/19 Range/Units 13:05 13:05 13:05 WBC 5.8 (3.8-10.6) k/uL RBC 4.51 (3.80-5.40) m/uL Hgb 14.1 (11.4-16.0) gm/dL Hct 42.1 (34.0-46.0) % MCV 93.3 (80.0-100.0) fL MCH 31.3 (25.0-35.0) pg MCHC 33.5 (31.0-37.0) g/dL RDW 12.6 (11.5-15.5) % Plt Count 189 (150-450) k/uL Neutrophils % 55 % Lymphocytes % 37 % Monocytes % 3 % Eosinophils % 2 % Basophils % 1 % Neutrophils # 3.2 (1.3-7.7) k/uL Lymphocytes # 2.2 (1.0-4.8) k/uL Monocytes # 0.2 (0-1.0) k/uL Eosinophils # 0.1 (0-0.7) k/uL Basophils # 0.0 (0-0.2) k/uL Sodium 139 (137-145) mmol/L Potassium 3.9 (3.5-5.1) mmol/L Chloride 109 H (98-107) mmol/L Carbon Dioxide 19 L (22-30) mmol/L Anion Gap 11 mmol/L BUN 9 (7-17) mg/dL Creatinine 0.77 (0.52-1.04) mg/dL Est GFR (CKD-EPI)AfAm >90 (>60 ml/min/1.73 sqM) Est GFR (CKD-EPI)NonAf >90 (>60 ml/min/1.73 sqM) Glucose 138 H (74-99) mg/dL Plasma Lactic Acid Aurelio (0.7-2.0) mmol/L Calcium 10.1 (8.4-10.2) mg/dL Total Bilirubin 0.6 (0.2-1.3) mg/dL AST 79 H (14-36) U/L ALT 52 H (4-34) U/L Alkaline Phosphatase 91 (38-126) U/L Total Protein 7.5 (6.3-8.2) g/dL Albumin 4.3 (3.5-5.0) g/dL Amylase 51 (30-110) U/L Lipase 925 H (23-300) U/L Urine Color Yellow Urine Appearance Slightly Cloudy H (Clear) Urine pH 6.0 (5.0-8.0) Ur Specific [place] 1.010 (1.001-1.035) Urine Protein 1+ (Negative) Ur Protein Confirm (Negative) Urine Glucose (UA) Negative (Negative) Urine Ketones Negative (Negative) Urine Blood Negative (Negative) Urine Nitrite Negative (Negative) Urine Bilirubin Negative (Negative) Urine Urobilinogen 2.0 (<2.0) mg/dL Ur Leukocyte Esterase Large (Negative) Urine RBC 4 (0-5) /hpf Urine WBC 14 H (0-5) /hpf Ur Squamous Epith Cells 31 H (0-4) /hpf Urine Bacteria Many H (None) /hpf Urine Mucus Moderate H (None) /hpf Serum Alcohol mg/dL 05/28/19 05/28/19 Range/Units 13:05 13:57 WBC (3.8-10.6) k/uL RBC (3.80-5.40) m/uL Hgb (11.4-16.0) gm/dL Hct (34.0-46.0) % MCV (80.0-100.0) fL MCH (25.0-35.0) pg MCHC (31.0-37.0) g/dL RDW (11.5-15.5) % Plt Count (150-450) k/uL Neutrophils % % Lymphocytes % % Monocytes % % Eosinophils % % Basophils % % Neutrophils # (1.3-7.7) k/uL Lymphocytes # (1.0-4.8) k/uL Monocytes # (0-1.0) k/uL Eosinophils # (0-0.7) k/uL Basophils # (0-0.2) k/uL Sodium (137-145) mmol/L Potassium (3.5-5.1) mmol/L Chloride (98-107) mmol/L Carbon Dioxide (22-30) mmol/L Anion Gap mmol/L BUN (7-17) mg/dL Creatinine (0.52-1.04) mg/dL Est GFR (CKD-EPI)AfAm (>60 ml/min/1.73 sqM) Est GFR (CKD-EPI)NonAf (>60 ml/min/1.73 sqM) Glucose (74-99) mg/dL Plasma Lactic Acid Aurelio 1.7 (0.7-2.0) mmol/L Calcium (8.4-10.2) mg/dL Total Bilirubin (0.2-1.3) mg/dL AST (14-36) U/L ALT (4-34) U/L Alkaline Phosphatase (38-126) U/L Total Protein (6.3-8.2) g/dL Albumin (3.5-5.0) g/dL Amylase (30-110) U/L Lipase (23-300) U/L Urine Color Urine Appearance (Clear) Urine pH (5.0-8.0) Ur Specific [place] (1.001-1.035) Urine Protein (Negative) Ur Protein Confirm (Negative) Urine Glucose (UA) (Negative) Urine Ketones (Negative) Urine Blood (Negative) Urine Nitrite (Negative) Urine Bilirubin (Negative) Urine Urobilinogen (<2.0) mg/dL Ur Leukocyte Esterase (Negative) Urine RBC (0-5) /hpf Urine WBC (0-5) /hpf Ur Squamous Epith Cells (0-4) /hpf Urine Bacteria (None) /hpf Urine Mucus (None) /hpf Serum Alcohol <10 mg/dL Disposition Clinical Impression: Abdominal pain, Elevated lipase, Pancreatitis Disposition: HOME SELF-CARE Condition: Good Instructions (If sedation given, give patient instructions): Pancreatitis (ED) Additional Instructions: Please use medication as discussed. Please follow-up with family doctor in the next 24 hours, repeat LIPASE, return to ER for increasing pain. Increase fluids and follow diet as discussed. Recommend medication review by physician who prescribes pyschiatric mediations. Please return to emergency room if the symptoms increase or worsen or for any other concerns. Is patient prescribed a controlled substance at d/c from ED?: No Referrals: Isi Carolina MD [Primary Care Provider] - 1-2 days Time of Disposition: 14:06
[2019-05-28] MEDS ORDERED: ACET/COD 300 MG/30 MG STARTER PACK 6 TAB BTL PO STA (14:32)
== END 2019-05-28 14:45 | disposition home or self-care (01) ==
LOC: EC 11:50
DX: K85.90 Acute pancreatitis without necrosis or infection, unspecified (principal); R74.8 Abnormal levels of other serum enzymes; K21.9 Gastro-esophageal reflux disease without esophagitis; E11.9 Type 2 diabetes mellitus without complications; F41.9 Anxiety disorder, unspecified; F32.9 Major depressive disorder, single episode, unspecified; Z79.84 Long term (current) use of oral hypoglycemic drugs; Z79.899 Other long term (current) drug therapy; Z88.5 Allergy status to narcotic agent; Z88.6 Allergy status to analgesic agent; Z88.0 Allergy status to penicillin; Z88.2 Allergy status to sulfonamides; Z88.8 Allergy status to other drugs, medicaments and biological substances; Z91.048 Other nonmedicinal substance allergy status; Z91.040 Latex allergy status; Z91.030 Bee allergy status
CPT/HCPCS: 36415; 80053; 82150; 83605; 83690; 85025; 81001; 87086; 74022; 99284; 96374; 96376; 96361; G0480; J1170; 80320

== ENCOUNTER 2019-06-12 17:52 | Emergency (ER) | payer OTHER ==
[2019-06-12 18:09] VITALS: RESP 18
[2019-06-12] MEDS ORDERED: SODIUM CHLORIDE 0.9% 1,000 ML IV STA (19:04)
[2019-06-12] MEDS ORDERED: ONDANSETRON 4 MG/2 ML VIAL IVP STA (19:05)
[2019-06-12] MEDS ORDERED: MORPHINE SULFATE 4 MG/ML SYRINGE IV STA ×2 (19:07→21:17)
[2019-06-12 19:29] LABS: Basophils % (A) 0 %; Eosinophils # (A) 0.1 k/uL (0-0.7); Eosinophils % (A) 1 %; HCT 41.5 % (34.0-46.0); HGB 13.9 gm/dL (11.4-16.0); Lymphocytes % (A) 45 %; MCH 31.2 pg (25.0-35.0); MCHC 33.5 g/dL (31.0-37.0); MCV 93.1 fL (80.0-100.0); Mean Platelet Volume 8.6; Monocytes # (A) 0.3 k/uL (0-1.0); Monocytes % (A) 4 %; Neutrophils # (A) 3.1 k/uL (1.3-7.7); Neutrophils % (A) 47 %; Platelet Count 189 k/uL (150-450); RBC 4.46 m/uL (3.80-5.40); RDW 13.1 % (11.5-15.5); WBC 6.6 k/uL (3.8-10.6)
[2019-06-12 19:38] LABS: ALT 57 U/L (4-34); AST 75 U/L (14-36); African American GFR (CKD) >90 (>60 ml/min/1.73 sqM); Albumin 4.7 g/dL (3.5-5.0); Alkaline Phosphatase 99 U/L (38-126); Anion Gap 14 mmol/L; Blood Urea Nitrogen 7 mg/dL (7-17); Calcium 10.5 mg/dL (8.4-10.2); Carbon Dioxide 21 mmol/L (22-30); Chloride 104 mmol/L (98-107); Glucose 168 mg/dL (74-99); Non-African American GFR(CKD) >90 (>60 ml/min/1.73 sqM); Potassium 4.1 mmol/L (3.5-5.1); Sodium 139 mmol/L (137-145); Total Bilirubin 0.4 mg/dL (0.2-1.3); Total Protein 7.9 g/dL (6.3-8.2)
[2019-06-12 19:39] LABS: Amorphous Sediment,Urine Rare /hpf; Appearance,Urine Clear (Clear); Bacteria,Urine Many /hpf; Bilirubin,Urine Negative (Negative); Blood,Urine Small (Negative); Color,Urine Yellow; Glucose,Urine (UA) Negative (Negative); Ketones,Urine Negative (Negative); Leukocyte Esterase,Urine Moderate (Negative); Mucus,Urine Rare /hpf; Nitrite,Urine Negative (Negative); PH, Urine 5.5 (5.0-8.0); Protein,Urine Negative (Negative); RBC,Urine 11 /hpf (0-5); Squamous Epithelial Cell,Urine 1 /hpf (0-4); Urobilinogen,Urine <2.0 mg/dL (<2.0); WBC,Urine 14 /hpf (0-5)
[2019-06-12] MEDS ORDERED: SODIUM CHLORIDE 0.9% 500 ML 500 ML IV STA (19:54)
[2019-06-12 21:14] VITALS: TEMP 98.1
--- NOTE | 2019-06-12 21:53 | ED ---
General Adult HPI - General Chief complaint: Abdominal Pain Stated complaint: LLQ abdominal pain Time Seen by Provider: 06/12/19 18:48 Source: patient, RN notes reviewed, old records reviewed Mode of arrival: ambulatory Limitations: no limitations - History of Present Illness Initial comments: 28-year-old female patient past history chronic pancreatitis, and CBC complaint of left upper abdominal pain. Patient was has been ongoing for 2 days. Reports that feels similar to pancreatitis in the past. Denies any alcohol use, reports nausea without emesis. Systemic: Pt denies fatigue, fever/chills, rash. Pt denies weakness, night sweats, weight loss. Neuro: Pt denies headache, visual disturbances, syncope or pre-syncope. HEENT: Pt denies ocular discharge or irritation, otalgia, rhinorrhea, pharyngitis or notable lymphadenopathy. Cardiopulmonary: Pt denies chest pain, SOB, heart palpitations, dyspnea on exertion. Abdominal/GI: Pt denies v/d. : Pt denies dysuria, burning w/ urination, frequency/urgency. Denies new onset urinary or bowel incontinence. MSK: Pt denies myalgia, loss of strength or function in extremities. Neuro: Pt denies new onset weakness, paresthesias. - Related Data Home Medications Medication Instructions Recorded Confirmed Omeprazole [PriLOSEC] 40 mg PO HS 07/29/16 05/28/19 EPINEPHrine [Epipen 2-Mike] 0.3 mg IM ONCE PRN 10/16/18 05/28/19 QUEtiapine FUMARATE [SEROquel] 300 mg PO HS 11/18/18 05/28/19 Ondansetron [Zofran ODT] 4 mg PO Q6H PRN 02/07/19 05/28/19 metFORMIN HCL [metFORMIN HCL ER] 750 mg PO HS 02/07/19 05/28/19 sitaGLIPtin [Januvia] 100 mg PO HS 02/07/19 05/28/19 Cyanocobalamin (Vitamin B-12) 1,000 mcg PO HS 05/08/19 05/28/19 [Vitamin B-12] Ergocalciferol [Vitamin D2 50,000 unit PO TH 05/08/19 05/28/19 (DRISDOL)] Hydrocortisone Cream 1 applic TOPICAL BID PRN 05/08/19 05/28/19 [Hydrocortisone 2.5% Cream] Ketoconazole 2% Cream [Nizoral 2%] 1 applic TOPICAL DAILY PRN 05/08/19 05/28/19 Propranolol HCl 20 mg PO HS 05/08/19 05/28/19 SUMAtriptan SUCCINATE [Imitrex] 50 mg PO DIRECTED PRN 05/08/19 05/28/19 Topiramate [Topamax] 50 mg PO HS 05/08/19 05/28/19 tiZANidine [Zanaflex] 4 mg PO BID PRN 05/08/19 05/28/19 Dicyclomine [Bentyl] 20 mg PO BID 05/16/19 05/28/19 Previous Rx's Medication Instructions Recorded Pantoprazole [Protonix] 40 mg PO BID #60 tablet. 05/12/19 Docusate [Colace] 100 mg PO DAILY PRN #30 cap 05/20/19 Allergies Allergy/AdvReac Type Severity Reaction Status Date / Time bee pollen Allergy Severe Anaphylaxis Verified 06/12/19 18:09 haloperidol [From Haldol] Allergy Severe QUIT Verified 06/12/19 18:09 BREATHING haloperidol lactate Allergy Severe QUIT Verified 06/12/19 18:09 [From Haldol] BREATHING latex Allergy Severe RASH-THROAT Verified 06/12/19 18:09 CLOSES tramadol Allergy Severe Nausea & Verified 06/12/19 18:09 Vomiting prednisone Allergy THROAT Verified 06/12/19 18:09 SWELLS spider venom Allergy Swelling Verified 06/12/19 18:09 Sulfa (Sulfonamide Allergy THROAT Verified 06/12/19 18:09 Antibiotics) SWELLS promethazine HCl AdvReac Severe Nausea & Verified 06/12/19 18:09 [From Phenergan] Vomiting amoxicillin AdvReac Nausea & Verified 06/12/19 18:09 Vomiting codeine phosphate AdvReac Nausea & Verified 06/12/19 18:09 [From Tylenol-Codeine #3] Vomiting WASP Allergy Severe Swelling Uncoded 06/12/19 18:09 ANTS Allergy Mild Anaphylaxis Uncoded 06/12/19 18:09 Review of Systems ROS Statement: Those systems with pertinent positive or pertinent negative responses have been documented in the HPI. ROS Other: All systems not noted in ROS Statement are negative. Past Medical History Past Medical History: Asthma, Diabetes Mellitus, GERD/Reflux Additional Past Medical History / Comment(s): migraines, constipation/diarrhea, degenerative disk disease, endometriosis, lupus, pancreatitis History of Any Multi-Drug Resistant Organisms: None Reported Past Surgical History: Orthopedic Surgery Additional Past Surgical History / Comment(s): laparoscopc surgery for endometriosis, cyst removed from left foot, EGD Past Anesthesia/Blood Transfusion Reactions: Previous Problems w/ Anesthesia Additional Past Anesthesia/Blood Transfusion Reaction / Comment(s): hard to wake up for 48-72 hours after laparoscopic surgery-was in hosp. for 3 days Past Psychological History: Anxiety, Depression, PTSD Smoking Status: Never smoker Past Alcohol Use History: None Reported Past Drug Use History: None Reported - Past Family History Mother Family Medical History: No Reported History Additional Family Medical History / Comment(s): hx migraines Father Family Medical History: Coronary Artery Disease (CAD), Hypertension Additional Family Medical History / Comment(s): ddd, alcoholism & drug use General Exam - General Exam Comments Initial Comments: Constitutional: NAD, AOX3, Pt has pleasant affect. HEENT: NC/AT, trachea midline, neck supple, no lymphadenopathy. Posterior pharynx non erythematous, without exudates. External ears appear normal, without discharge. Mucous membranes moist. Eyes PERRLA, EOM intact. There is no scleral icterus. No pallor noted. Cardiopulmonary: RRR, no murmurs, rubs or gallops, no JVD noted. Lungs CTAB in anterior and posterior arroyo. No peripheral edema. Abdominal exam: Abdomen soft and non-distended. Abdomen mildly tender to palpation in periumbilical left upper quadrant region.. Bowel sounds active in LLQ. No hepatosplenomegaly. No ecchymosis Neuro: CN II-XII grossly intact. No nuchal rigidity. No raccon eyes, no caro sign, no hemotympanum. No cervical spinal tenderness. MSK: No posterior calf tenderness bilaterally, homans sign negative bilaterally. Posterior tibialis and radial pulse +2 bilaterally. Sensation intact in upper and lower extremities. Full active ROM in upper and lower extremities, 5/5 st regnth. Limitations: no limitations Course Vital Signs 06/12/19 06/12/19 06/12/19 18:06 19:30 21:08 Temperature 98.1 F 98 F 98.1 F Pulse Rate 104 H 110 H 120 H Respiratory 18 18 18 Rate Blood Pressure 107/85 123/75 114/65 O2 Sat by Pulse 96 99 98 Oximetry Medical Decision Making - Medical Decision Making 28-year-old female patient past history chronic pancreatitis, and CBC complaint of left upper abdominal pain. Patient was has been ongoing for 2 days. Reports that feels similar to pancreatitis in the past. Denies any alcohol use, reports nausea without emesis. Patient felt signs stable, afebrile. Physical exam displayed: Abdomen soft and non-distended. Abdomen mildly tender to palpation in periumbilical left upper quadrant region. Left investigations revealed mild lactic acidosis of 3.0. Patient is rehydrated 1.5 L of fluid. Mild transaminitis is baseline for patient. Mildly elevated lipase. UA , blood, 14 red cells, denies any dysuria will be cultured. Patient feeling much improved. Discussed imaging, patient reports that she has had multiple CTs in the past and she would prefer to monitor symptoms and follow up with primary care provider. Patient was discharged return precautions case discussed with Dr. Turner. - Lab Data Result diagrams: 06/12/19 19:18 06/12/19 19:18 Lab Results 06/12/19 06/12/19 06/12/19 Range/Units 19:18 19:18 19:18 WBC 6.6 (3.8-10.6) k/uL RBC 4.46 (3.80-5.40) m/uL Hgb 13.9 (11.4-16.0) gm/dL Hct 41.5 (34.0-46.0) % MCV 93.1 (80.0-100.0) fL MCH 31.2 (25.0-35.0) pg MCHC 33.5 (31.0-37.0) g/dL RDW 13.1 (11.5-15.5) % Plt Count 189 (150-450) k/uL Neutrophils % 47 % Lymphocytes % 45 % Monocytes % 4 % Eosinophils % 1 % Basophils % 0 % Neutrophils # 3.1 (1.3-7.7) k/uL Lymphocytes # 3.0 (1.0-4.8) k/uL Monocytes # 0.3 (0-1.0) k/uL Eosinophils # 0.1 (0-0.7) k/uL Basophils # 0.0 (0-0.2) k/uL Sodium 139 (137-145) mmol/L Potassium 4.1 (3.5-5.1) mmol/L Chloride 104 (98-107) mmol/L Carbon Dioxide 21 L (22-30) mmol/L Anion Gap 14 mmol/L BUN 7 (7-17) mg/dL Creatinine 0.79 (0.52-1.04) mg/dL Est GFR (CKD-EPI)AfAm >90 (>60 ml/min/1.73 sqM) Est GFR (CKD-EPI)NonAf >90 (>60 ml/min/1.73 sqM) Glucose 168 H (74-99) mg/dL Plasma Lactic Acid Aurelio 3.0 H* (0.7-2.0) mmol/L Calcium 10.5 H (8.4-10.2) mg/dL Total Bilirubin 0.4 (0.2-1.3) mg/dL AST 75 H (14-36) U/L ALT 57 H (4-34) U/L Alkaline Phosphatase 99 (38-126) U/L Total Protein 7.9 (6.3-8.2) g/dL Albumin 4.7 (3.5-5.0) g/dL Lipase 447 H (23-300) U/L Urine Color Urine Appearance (Clear) Urine pH (5.0-8.0) Ur Specific [place] (1.001-1.035) Urine Protein (Negative) Urine Glucose (UA) (Negative) Urine Ketones (Negative) Urine Blood (Negative) Urine Nitrite (Negative) Urine Bilirubin (Negative) Urine Urobilinogen (<2.0) mg/dL Ur Leukocyte Esterase (Negative) Urine RBC (0-5) /hpf Urine WBC (0-5) /hpf Ur Squamous Epith Cells (0-4) /hpf Amorphous Sediment (None) /hpf Urine Bacteria (None) /hpf Urine Mucus (None) /hpf Urine HCG, Qual (Not Detectd) 06/12/19 06/12/19 Range/Units 19:23 19:23 WBC (3.8-10.6) k/uL RBC (3.80-5.40) m/uL Hgb (11.4-16.0) gm/dL Hct (34.0-46.0) % MCV (80.0-100.0) fL MCH (25.0-35.0) pg MCHC (31.0-37.0) g/dL RDW (11.5-15.5) % Plt Count (150-450) k/uL Neutrophils % % Lymphocytes % % Monocytes % % Eosinophils % % Basophils % % Neutrophils # (1.3-7.7) k/uL Lymphocytes # (1.0-4.8) k/uL Monocytes # (0-1.0) k/uL Eosinophils # (0-0.7) k/uL Basophils # (0-0.2) k/uL Sodium (137-145) mmol/L Potassium (3.5-5.1) mmol/L Chloride (98-107) mmol/L Carbon Dioxide (22-30) mmol/L Anion Gap mmol/L BUN (7-17) mg/dL Creatinine (0.52-1.04) mg/dL Est GFR (CKD-EPI)AfAm (>60 ml/min/1.73 sqM) Est GFR (CKD-EPI)NonAf (>60 ml/min/1.73 sqM) Glucose (74-99) mg/dL Plasma Lactic Acid Aurelio (0.7-2.0) mmol/L Calcium (8.4-10.2) mg/dL Total Bilirubin (0.2-1.3) mg/dL AST (14-36) U/L ALT (4-34) U/L Alkaline Phosphatase (38-126) U/L Total Protein (6.3-8.2) g/dL Albumin (3.5-5.0) g/dL Lipase (23-300) U/L Urine Color Yellow Urine Appearance Clear (Clear) Urine pH 5.5 (5.0-8.0) Ur Specific [place] 1.010 (1.001-1.035) Urine Protein Negative (Negative) Urine Glucose (UA) Negative (Negative) Urine Ketones Negative (Negative) Urine Blood Small H (Negative) Urine Nitrite Negative (Negative) Urine Bilirubin Negative (Negative) Urine Urobilinogen <2.0 (<2.0) mg/dL Ur Leukocyte Esterase Moderate H (Negative) Urine RBC 11 H (0-5) /hpf Urine WBC 14 H (0-5) /hpf Ur Squamous Epith Cells 1 (0-4) /hpf Amorphous Sediment Rare H (None) /hpf Urine Bacteria Many H (None) /hpf Urine Mucus Rare H (None) /hpf Urine HCG, Qual Not Detected (Not Detectd) Disposition Clinical Impression: Abdominal pain, Elevated lipase Disposition: HOME SELF-CARE Condition: Stable Instructions (If sedation given, give patient instructions): Abdominal Pain (ED) Additional Instructions: Follow-up with primary care provider and form setter helper tomorrow. Return to ER if condition worsens in any way. Is patient prescribed a controlled substance at d/c from ED?: No Referrals: Isi Carolina MD [Primary Care Provider] - 1-2 days
[2019-06-12 22:03] VITALS: BP 115/70
[2019-06-12 22:05] VITALS: PULSE 96
== END 2019-06-12 22:07 | disposition home or self-care (01) ==
LOC: EC 17:52
DX: R74.8 Abnormal levels of other serum enzymes (principal); K86.1 Other chronic pancreatitis; E87.2 Acidosis; R74.0 Nonspecific elevation of levels of transaminase and lactic acid dehydrogenase [LDH]; R31.9 Hematuria, unspecified; E11.9 Type 2 diabetes mellitus without complications; K21.9 Gastro-esophageal reflux disease without esophagitis; F41.9 Anxiety disorder, unspecified; F32.9 Major depressive disorder, single episode, unspecified; F43.10 Post-traumatic stress disorder, unspecified; G43.909 Migraine, unspecified, not intractable, without status migrainosus; Z79.84 Long term (current) use of oral hypoglycemic drugs; Z79.899 Other long term (current) drug therapy; Z88.0 Allergy status to penicillin; Z88.8 Allergy status to other drugs, medicaments and biological substances; Z88.6 Allergy status to analgesic agent; Z88.2 Allergy status to sulfonamides; Z91.040 Latex allergy status; Z91.030 Bee allergy status; Z91.048 Other nonmedicinal substance allergy status; Z98.890 Other specified postprocedural states
CPT/HCPCS: 36415; 80053; 83605; 83690; 85025; 81001; 81025; 87086; 99284; 96374; 96375; 96376; 96361; J2270; J2405

== ENCOUNTER 2019-07-13 12:03 | Emergency (ER) | payer OTHER ==
[2019-07-13] MEDS ORDERED: diphenhydrAMINE 50 MG/ML 1 ML VIAL IVP STA (12:22)
[2019-07-13] MEDS ORDERED: ONDANSETRON 4 MG/2 ML VIAL IVP STA (12:22)
[2019-07-13] MEDS ORDERED: SODIUM CHLORIDE 0.9% 2,000 ML IV STA (12:22)
[2019-07-13] MEDS ORDERED: MORPHINE SULFATE 4 MG/ML SYRINGE IV STA (12:22)
[2019-07-13 12:27] VITALS: RESP 18
--- NOTE | 2019-07-13 12:38 | ED ---
Abdominal Pain HPI - General Stated Complaint: lt sided abd pain Time Seen by Provider: 07/13/19 12:14 Source: patient, RN notes reviewed Mode of arrival: ambulatory Limitations: no limitations - History of Present Illness Initial Comments: This a 28-year-old female presents emergency Department chief complaint of abdominal pain. Patient states she's been having increasing abdominal pain last 24 hours. Patient states that she has had 2 episodes of pancreatitis. Patient states that she is currently being evaluated for pancreatitis by GI was schedule have an MRI was canceled secondary to pandemic. Patient states that she was given Tylenol with codeine for pain control. Patient states that this helping she's been having increasing vomiting, pain primarily in the mid to left side of her abdomen. No change in bowel habits denies any chance . Patient has fevers chills no chest pain or shortness breath. - Related Data Home Medications Medication Instructions Recorded Confirmed Omeprazole [PriLOSEC] 40 mg PO HS 07/29/16 07/13/19 EPINEPHrine [Epipen 2-Mike] 0.3 mg IM ONCE PRN 10/16/18 07/13/19 QUEtiapine FUMARATE [SEROquel] 300 mg PO HS 11/18/18 07/13/19 Ondansetron [Zofran ODT] 4 mg PO Q6H PRN 02/07/19 07/13/19 metFORMIN HCL [metFORMIN HCL ER] 750 mg PO HS 02/07/19 07/13/19 sitaGLIPtin [Januvia] 100 mg PO HS 02/07/19 07/13/19 Cyanocobalamin (Vitamin B-12) 1,000 mcg PO HS 05/08/19 07/13/19 [Vitamin B-12] Ergocalciferol [Vitamin D2 50,000 unit PO 05/08/19 07/13/19 (DRISDOL)] Hydrocortisone Cream 1 applic TOPICAL BID PRN 05/08/19 07/13/19 [Hydrocortisone 2.5% Cream] Propranolol HCl 20 mg PO HS 05/08/19 07/13/19 SUMAtriptan SUCCINATE [Imitrex] 50 mg PO DIRECTED PRN 05/08/19 07/13/19 Topiramate [Topamax] 50 mg PO HS 05/08/19 07/13/19 tiZANidine [Zanaflex] 4 mg PO BID PRN 05/08/19 07/13/19 Dicyclomine [Bentyl] 20 mg PO BID 05/16/19 07/13/19 Acetaminophen-Codeine 300-30mg 1 tab PO Q8H PRN 07/13/19 07/13/19 [Tylenol w/codeine #3] Atorvastatin [Lipitor] 40 mg PO DAILY 07/13/19 07/13/19 Previous Rx's Medication Instructions Recorded Pantoprazole [Protonix] 40 mg PO BID #60 tablet. 05/12/19 Docusate [Colace] 100 mg PO DAILY PRN #30 cap 05/20/19 Cephalexin [Keflex] 500 mg PO Q6HR #21 cap 07/13/19 Ondansetron Odt [Zofran Odt] 4 mg PO Q8HR PRN #10 tab 07/13/19 Allergies Allergy/AdvReac Type Severity Reaction Status Date / Time bee pollen Allergy Severe Anaphylaxis Verified 07/13/19 12:53 haloperidol [From Haldol] Allergy Severe QUIT Verified 07/13/19 12:53 BREATHING haloperidol lactate Allergy Severe QUIT Verified 07/13/19 12:53 [From Haldol] BREATHING latex Allergy Severe RASH-THROAT Verified 07/13/19 12:53 CLOSES tramadol Allergy Severe Nausea & Verified 07/13/19 12:53 Vomiting prednisone Allergy THROAT Verified 07/13/19 12:53 SWELLS spider venom Allergy Swelling Verified 07/13/19 12:53 Sulfa (Sulfonamide Allergy THROAT Verified 07/13/19 12:53 Antibiotics) SWELLS promethazine HCl AdvReac Severe Nausea & Verified 07/13/19 12:53 [From Phenergan] Vomiting amoxicillin AdvReac Nausea & Verified 07/13/19 12:53 Vomiting WASP Allergy Severe Swelling Uncoded 06/12/19 18:09 ANTS Allergy Mild Anaphylaxis Uncoded 06/12/19 18:09 Review of Systems ROS Statement: Those systems with pertinent positive or pertinent negative responses have been documented in the HPI. ROS Other: All systems not noted in ROS Statement are negative. Past Medical History Past Medical History: Asthma, Diabetes Mellitus, GERD/Reflux Additional Past Medical History / Comment(s): migraines, constipation/diarrhea, degenerative disk disease, endometriosis, lupus, pancreatitis History of Any Multi-Drug Resistant Organisms: None Reported Past Surgical History: Orthopedic Surgery Additional Past Surgical History / Comment(s): laparoscopc surgery for endometriosis, cyst removed from left foot, EGD Past Anesthesia/Blood Transfusion Reactions: Previous Problems w/ Anesthesia Additional Past Anesthesia/Blood Transfusion Reaction / Comment(s): hard to wake up for 48-72 hours after laparoscopic surgery-was in hosp. for 3 days Past Psychological History: Anxiety, Depression, PTSD Smoking Status: Never smoker Past Alcohol Use History: None Reported Past Drug Use History: None Reported - Past Family History Mother Family Medical History: No Reported History Additional Family Medical History / Comment(s): hx migraines Father Family Medical History: Coronary Artery Disease (CAD), Hypertension Additional Family Medical History / Comment(s): ddd, alcoholism & drug use General Exam Limitations: no limitations General appearance: alert, in no apparent distress Head exam: Present: atraumatic, normocephalic, normal inspection Eye exam: Present: normal appearance, PERRL, EOMI. Absent: scleral icterus, conjunctival injection, periorbital swelling ENT exam: Present: normal exam, mucous membranes moist Neck exam: Present: normal inspection, full ROM. Absent: tenderness, meningismus, lymphadenopathy Respiratory exam: Present: normal lung sounds bilaterally. Absent: respiratory distress, wheezes, rales, rhonchi, stridor Cardiovascular Exam: Present: normal rhythm, tachycardia, normal heart sounds. Absent: systolic murmur, diastolic murmur, rubs, gallop, clicks GI/Abdominal exam: Present: soft, tenderness (Moderate mid abdomen to left side), normal bowel sounds. Absent: distended, guarding, rebound, rigid Back exam: Absent: CVA tenderness (R), CVA tenderness (L) Course Vital Signs 07/13/19 12:22 Temperature 98.7 F Pulse Rate 103 H Respiratory 18 Rate Blood Pressure 102/81 O2 Sat by Pulse 99 Oximetry Medical Decision Making - Medical Decision Making Patient presented for lower abdominal pain. Patient's found to have urinary t ract infection she does admit that she is symptomatic she's been having urinary frequency and dysuria. Patient is given Rocephin emergency from discharge in stable condition. Patient has a follow-up with GI return parameters discussed. - Lab Data Result diagrams: 07/13/19 12:48 07/13/19 12:48 Lab Results 07/13/19 07/13/19 07/13/19 Range/Units 12:48 12:48 12:48 WBC 6.4 (3.8-10.6) k/uL RBC 4.26 (3.80-5.40) m/uL Hgb 13.8 (11.4-16.0) gm/dL Hct 40.2 (34.0-46.0) % MCV 94.4 (80.0-100.0) fL MCH 32.5 (25.0-35.0) pg MCHC 34.4 (31.0-37.0) g/dL RDW 13.7 (11.5-15.5) % Plt Count 223 (150-450) k/uL Neutrophils % 48 % Lymphocytes % 44 % Monocytes % 3 % Eosinophils % 3 % Basophils % 0 % Neutrophils # 3.0 (1.3-7.7) k/uL Lymphocytes # 2.8 (1.0-4.8) k/uL Monocytes # 0.2 (0-1.0) k/uL Eosinophils # 0.2 (0-0.7) k/uL Basophils # 0.0 (0-0.2) k/uL Sodium (137-145) mmol/L Potassium (3.5-5.1) mmol/L Chloride (98-107) mmol/L Carbon Dioxide (22-30) mmol/L Anion Gap mmol/L BUN (7-17) mg/dL Creatinine (0.52-1.04) mg/dL Est GFR (CKD-EPI)AfAm (>60 ml/min/1.73 sqM) Est GFR (CKD-EPI)NonAf (>60 ml/min/1.73 sqM) Glucose (74-99) mg/dL Calcium (8.4-10.2) mg/dL Total Bilirubin (0.2-1.3) mg/dL AST (14-36) U/L ALT (4-34) U/L Alkaline Phosphatase (38-126) U/L Total Protein (6.3-8.2) g/dL Albumin (3.5-5.0) g/dL Amylase (30-110) U/L Lipase (23-300) U/L Urine Color Yellow Urine Appearance Cloudy H (Clear) Urine pH 5.5 (5.0-8.0) Ur Specific [place] 1.020 (1.001-1.035) Urine Protein 1+ H (Negative) Urine Glucose (UA) Trace H (Negative) Urine Ketones Negative (Negative) Urine Blood Small H (Negative) Urine Nitrite Negative (Negative) Urine Bilirubin Negative (Negative) Urine Urobilinogen 2.0 (<2.0) mg/dL Ur Leukocyte Esterase Large H (Negative) Urine RBC 10 H (0-5) /hpf Urine WBC 29 H (0-5) /hpf Ur Squamous Epith Cells 13 H (0-4) /hpf Urine Bacteria Many H (None) /hpf Urine Mucus Few H (None) /hpf Urine HCG, Qual Not Detected (Not Detectd) 07/13/19 Range/Units 12:48 WBC (3.8-10.6) k/uL RBC (3.80-5.40) m/uL Hgb (11.4-16.0) gm/dL Hct (34.0-46.0) % MCV (80.0-100.0) fL MCH (25.0-35.0) pg MCHC (31.0-37.0) g/dL RDW (11.5-15.5) % Plt Count (150-450) k/uL Neutrophils % % Lymphocytes % % Monocytes % % Eosinophils % % Basophils % % Neutrophils # (1.3-7.7) k/uL Lymphocytes # (1.0-4.8) k/uL Monocytes # (0-1.0) k/uL Eosinophils # (0-0.7) k/uL Basophils # (0-0.2) k/uL Sodium 137 (137-145) mmol/L Potassium 4.0 (3.5-5.1) mmol/L Chloride 104 (98-107) mmol/L Carbon Dioxide 21 L (22-30) mmol/L Anion Gap 12 mmol/L BUN 9 (7-17) mg/dL Creatinine 0.72 (0.52-1.04) mg/dL Est GFR (CKD-EPI)AfAm >90 (>60 ml/min/1.73 sqM) Est GFR (CKD-EPI)NonAf >90 (>60 ml/min/1.73 sqM) Glucose 211 H (74-99) mg/dL Calcium 10.3 H (8.4-10.2) mg/dL Total Bilirubin 0.6 (0.2-1.3) mg/dL AST 74 H (14-36) U/L ALT 57 H (4-34) U/L Alkaline Phosphatase 92 (38-126) U/L Total Protein 7.4 (6.3-8.2) g/dL Albumin 4.2 (3.5-5.0) g/dL Amylase 36 (30-110) U/L Lipase 155 (23-300) U/L Urine Color Urine Appearance (Clear) Urine pH (5.0-8.0) Ur Specific [place] (1.001-1.035) Urine Protein (Negative) Urine Glucose (UA) (Negative) Urine Ketones (Negative) Urine Blood (Negative) Urine Nitrite (Negative) Urine Bilirubin (Negative) Urine Urobilinogen (<2.0) mg/dL Ur Leukocyte Esterase (Negative) Urine RBC (0-5) /hpf Urine WBC (0-5) /hpf Ur Squamous Epith Cells (0-4) /hpf Urine Bacteria (None) /hpf Urine Mucus (None) /hpf Urine HCG, Qual (Not Detectd) Disposition Clinical Impression: Abdominal pain, UTI (urinary tract infection) Disposition: HOME SELF-CARE Condition: Stable Instructions (If sedation given, give patient instructions): Urinary Tract Infection in Women (ED) Additional Instructions: Please return to the Emergency Department if symptoms worsen or any other concerns. Prescriptions: Cephalexin [Keflex] 500 mg PO Q6HR #21 cap Ondansetron Odt [Zofran Odt] 4 mg PO Q8HR PRN #10 tab PRN Reason: Nausea Is patient prescribed a controlled substance at d/c from ED?: No Referrals: Isi Carolina MD [Primary Care Provider] - 1-2 days Time of Disposition: 13:45
[2019-07-13 13:14] LABS: Basophils % (A) 0 %; Eosinophils # (A) 0.2 k/uL (0-0.7); Eosinophils % (A) 3 %; HCT 40.2 % (34.0-46.0); HGB 13.8 gm/dL (11.4-16.0); Lymphocytes # (A) 2.8 k/uL (1.0-4.8); Lymphocytes % (A) 44 %; MCH 32.5 pg (25.0-35.0); MCHC 34.4 g/dL (31.0-37.0); MCV 94.4 fL (80.0-100.0); Mean Platelet Volume 8.5; Monocytes # (A) 0.2 k/uL (0-1.0); Monocytes % (A) 3 %; Neutrophils % (A) 48 %; Platelet Count 223 k/uL (150-450); RBC 4.26 m/uL (3.80-5.40); RDW 13.7 % (11.5-15.5); WBC 6.4 k/uL (3.8-10.6)
[2019-07-13 13:18] LABS: Appearance,Urine Cloudy (Clear); Bacteria,Urine Many /hpf; Bilirubin,Urine Negative (Negative); Blood,Urine Small (Negative); Color,Urine Yellow; Glucose,Urine (UA) Trace (Negative); Ketones,Urine Negative (Negative); Leukocyte Esterase,Urine Large (Negative); Mucus,Urine Few /hpf; Nitrite,Urine Negative (Negative); PH, Urine 5.5 (5.0-8.0); Protein,Urine 1+ (Negative); RBC,Urine 10 /hpf (0-5); Squamous Epithelial Cell,Urine 13 /hpf (0-4); WBC,Urine 29 /hpf (0-5)
[2019-07-13 13:33] LABS: ALT 57 U/L (4-34); AST 74 U/L (14-36); African American GFR (CKD) >90 (>60 ml/min/1.73 sqM); Albumin 4.2 g/dL (3.5-5.0); Alkaline Phosphatase 92 U/L (38-126); Amylase 36 U/L (30-110); Anion Gap 12 mmol/L; Blood Urea Nitrogen 9 mg/dL (7-17); Calcium 10.3 mg/dL (8.4-10.2); Carbon Dioxide 21 mmol/L (22-30); Chloride 104 mmol/L (98-107); Glucose 211 mg/dL (74-99); Non-African American GFR(CKD) >90 (>60 ml/min/1.73 sqM); Sodium 137 mmol/L (137-145); Total Bilirubin 0.6 mg/dL (0.2-1.3); Total Protein 7.4 g/dL (6.3-8.2)
[2019-07-13] MEDS ORDERED: cefTRIAXone IN SWFI 1,000 MG/10 ML SYRINGE IVP STA (13:43)
[2019-07-13 14:18] VITALS: BP 100/71; PULSE 91; TEMP 97.7
== END 2019-07-13 14:18 | disposition home or self-care (01) ==
LOC: EC 12:03
DX: N39.0 Urinary tract infection, site not specified (principal); K21.9 Gastro-esophageal reflux disease without esophagitis; E11.9 Type 2 diabetes mellitus without complications; F41.9 Anxiety disorder, unspecified; F32.9 Major depressive disorder, single episode, unspecified; Z79.84 Long term (current) use of oral hypoglycemic drugs; Z79.899 Other long term (current) drug therapy; Z91.030 Bee allergy status; Z88.8 Allergy status to other drugs, medicaments and biological substances; Z91.040 Latex allergy status; Z88.5 Allergy status to narcotic agent; Z91.038 Other insect allergy status; Z88.2 Allergy status to sulfonamides; Z88.0 Allergy status to penicillin
CPT/HCPCS: 36415; 80053; 82150; 83690; 85025; 81001; 81025; 87086; 99284; 96374; 96375 ×3; 96361 ×2; J2270; J1200; J2405; J0696

== ENCOUNTER 2019-08-16 14:17 | Emergency (ER) | payer OTHER ==
[2019-08-16 14:22] VITALS: BP 114/90; PULSE 93; RESP 18; TEMP 98.1
[2019-08-16] MEDS ORDERED: KETOROLAC 60 MG/2 ML VIAL IM STA (14:35)
[2019-08-16] MEDS ORDERED: HYDROmorphone 1 MG/ML 1 ML SYRINGE IM STA (14:35)
[2019-08-16] MEDS ORDERED: ONDANSETRON ODT 4 MG TAB PO STA (14:36)
--- NOTE | 2019-08-16 14:46 | ED ---
General Adult HPI - General Chief complaint: Headache Stated complaint: Headache Time Seen by Provider: 08/16/19 14:28 Source: patient, RN notes reviewed Mode of arrival: ambulatory Limitations: no limitations - History of Present Illness Initial comments: Patient is a pleasant 28-year-old female presenting to the emergency Department with complaints of headache. Onset of headache was yesterday. Headache was gradual onset and answering to become severe now. Headache is frontal. Patient does have history of similar headaches previously and has had several previous imaging. Patient has had previous head CT and MRI. Patient has decreased appetite and occasional nausea. Patient does have some photophobia as well. No weakness. No fever. - Related Data Home Medications Medication Instructions Recorded Confirmed Omeprazole [PriLOSEC] 40 mg PO HS 07/29/16 07/13/19 EPINEPHrine [Epipen 2-Mike] 0.3 mg IM ONCE PRN 10/16/18 07/13/19 QUEtiapine FUMARATE [SEROquel] 300 mg PO HS 11/18/18 07/13/19 Ondansetron [Zofran ODT] 4 mg PO Q6H PRN 02/07/19 07/13/19 metFORMIN HCL [metFORMIN HCL ER] 750 mg PO HS 02/07/19 07/13/19 sitaGLIPtin [Januvia] 100 mg PO HS 02/07/19 07/13/19 Cyanocobalamin (Vitamin B-12) 1,000 mcg PO HS 05/08/19 07/13/19 [Vitamin B-12] Ergocalciferol [Vitamin D2 50,000 unit PO TH 05/08/19 07/13/19 (DRISDOL)] Hydrocortisone Cream 1 applic TOPICAL BID PRN 05/08/19 07/13/19 [Hydrocortisone 2.5% Cream] Propranolol HCl 20 mg PO HS 05/08/19 07/13/19 SUMAtriptan SUCCINATE [Imitrex] 50 mg PO DIRECTED PRN 05/08/19 07/13/19 Topiramate [Topamax] 50 mg PO HS 05/08/19 07/13/19 tiZANidine [Zanaflex] 4 mg PO BID PRN 05/08/19 07/13/19 Dicyclomine [Bentyl] 20 mg PO BID 05/16/19 07/13/19 Acetaminophen-Codeine 300-30mg 1 tab PO Q8H PRN 07/13/19 07/13/19 [Tylenol w/codeine #3] Atorvastatin [Lipitor] 40 mg PO DAILY 07/13/19 07/13/19 Previous Rx's Medication Instructions Recorded Pantoprazole [Protonix] 40 mg PO BID #60 tablet. 05/12/19 Docusate [Colace] 100 mg PO DAILY PRN #30 cap 05/20/19 Cephalexin [Keflex] 500 mg PO Q6HR #21 cap 07/13/19 Ondansetron Odt [Zofran Odt] 4 mg PO Q8HR PRN #10 tab 07/13/19 Allergies Allergy/AdvReac Type Severity Reaction Status Date / Time bee pollen Allergy Severe Anaphylaxis Verified 08/16/19 14:22 haloperidol [From Haldol] Allergy Severe QUIT Verified 08/16/19 14:22 BREATHING haloperidol lactate Allergy Severe QUIT Verified 08/16/19 14:22 [From Haldol] BREATHING latex Allergy Severe RASH-THROAT Verified 08/16/19 14:22 CLOSES tramadol Allergy Severe Nausea & Verified 08/16/19 14:22 Vomiting prednisone Allergy THROAT Verified 08/16/19 14:22 SWELLS spider venom Allergy Swelling Verified 08/16/19 14:22 Sulfa (Sulfonamide Allergy THROAT Verified 08/16/19 14:22 Antibiotics) SWELLS promethazine HCl AdvReac Severe Nausea & Verified 08/16/19 14:22 [From Phenergan] Vomiting amoxicillin AdvReac Nausea & Verified 08/16/19 14:22 Vomiting WASP Allergy Severe Swelling Uncoded 08/16/19 14:22 ANTS Allergy Mild Anaphylaxis Uncoded 08/16/19 14:22 Review of Systems ROS Statement: Those systems with pertinent positive or pertinent negative responses have been documented in the HPI. ROS Other: All systems not noted in ROS Statement are negative. Constitutional: Denies: fever Eyes: Denies: eye pain ENT: Denies: ear pain Respiratory: Denies: dyspnea Cardiovascular: Denies: chest pain Endocrine: Denies: fatigue Gastrointestinal: Reports: nausea. Denies: abdominal pain Genitourinary: Denies: dysuria Musculoskeletal: Denies: back pain Skin: Denies: rash Neurological: Denies: weakness Past Medical History Past Medical History: Asthma, Diabetes Mellitus, GERD/Reflux Additional Past Medical History / Comment(s): migraines, constipation/diarrhea, degenerative disk disease, endometriosis, lupus, pancreatitis History of Any Multi-Drug Resistant Organisms: None Reported Past Surgical History: Orthopedic Surgery Additional Past Surgical History / Comment(s): laparoscopc surgery for endometriosis, cyst removed from left foot, EGD Past Anesthesia/Blood Transfusion Reactions: Previous Problems w/ Anesthesia Additional Past Anesthesia/Blood Transfusion Reaction / Comment(s): hard to wake up for 48-72 hours after laparoscopic surgery-was in hosp. for 3 days Past Psychological History: Anxiety, Depression, PTSD Smoking Status: Never smoker Past Alcohol Use History: None Reported Past Drug Use History: None Reported - Past Family History Mother Family Medical History: No Reported History Additional Family Medical History / Comment(s): hx migraines Father Family Medical History: Coronary Artery Disease (CAD), Hypertension Additional Family Medical History / Comment(s): ddd, alcoholism & drug use General Exam Limitations: no limitations General appearance: alert, in no apparent distress Head exam: Present: normocephalic Eye exam: Present: normal appearance, PERRL, EOMI. Absent: nystagmus ENT exam: Present: normal oropharynx Neck exam: Present: normal inspection Respiratory exam: Present: normal lung sounds bilaterally Cardiovascular Exam: Present: regular rate, normal rhythm GI/Abdominal exam: Present: soft. Absent: tenderness, guarding Extremities exam: Present: normal inspection Neurological exam: Present: alert, CN II-XII intact. Absent: motor sensory deficit Expanded Neurological exam: Present: protecting the airway Speech: Present: fluid speech Cranial nerves: EOM's Intact: Normal Motor strength exam: RUE: 5, LUE: 5, RLE: 5, LLE: 5 Eye Response: (4) open spontaneously Motor Response: (6) obeys commands Verbal Response: (5) oriented Psychiatric exam: Present: normal affect, normal mood Skin exam: Present: normal color Course Vital Signs 08/16/19 14:18 Temperature 98.1 F Pulse Rate 93 Respiratory 18 Rate Blood Pressure 114/90 O2 Sat by Pulse 98 Oximetry Disposition Clinical Impression: Cephalgia Disposition: HOME SELF-CARE Condition: Stable Instructions (If sedation given, give patient instructions): Acute Headache (ED) Additional Instructions: Please follow-up with primary care physician in the next couple days for recheck. Return for fever, confusion, weakness, vomiting, worsening or change in symptoms or other concerns. Is patient prescribed a controlled substance at d/c from ED?: No Referrals: Isi Carolina MD [Primary Care Provider] - 1-2 days Time of Disposition: 14:46
== END 2019-08-16 15:04 | disposition home or self-care (01) ==
LOC: EC 14:17
DX: R51 Headache (principal); R11.0 Nausea; E11.9 Type 2 diabetes mellitus without complications; K21.9 Gastro-esophageal reflux disease without esophagitis; F41.9 Anxiety disorder, unspecified; F32.9 Major depressive disorder, single episode, unspecified; F43.10 Post-traumatic stress disorder, unspecified; Z79.899 Other long term (current) drug therapy; Z79.84 Long term (current) use of oral hypoglycemic drugs; Z91.09 Other allergy status, other than to drugs and biological substances; Z88.0 Allergy status to penicillin; Z88.8 Allergy status to other drugs, medicaments and biological substances; Z88.2 Allergy status to sulfonamides; Z91.038 Other insect allergy status; Z91.040 Latex allergy status; Z88.6 Allergy status to analgesic agent; Z91.030 Bee allergy status; Z86.69 Personal history of other diseases of the nervous system and sense organs
CPT/HCPCS: 96372 ×2; 99283; J1885; J1170

== ENCOUNTER → 2019-08-30 | Outpatient (CLI) | payer OTHER ==
--- NOTE | 2019-08-30 12:49 | MR ---
MR pancreas with and without contrast, MRCP HISTORY: Pancreatitis, left-sided abdominal pain Multiplanar multisequence and postcontrast images obtained through the region of the pancreas and pey[place] iary system following 10 cc Gadavist IV. Three-dimensional reconstructions performed through the bili charles system. Correlation to CT abdomen pelvis 05/08/2019 The pancreas shows an unremarkable appearance, no peripancreatic inflammatory changes to suggest panc reatitis. No cystic change. There is no abnormal enhancement. There is no biliary ductal dilatation. No luminal abnormality present within the biliary system to suggest choledocholithiasis. Gallbladder shows an unremarkable appearance. Liver shows no mass but is enlarged. Signal drop on out of phase im aging is compatible with hepatic steatosis. There is no ascites. Adrenal glands are unremarkable. Kidneys show no hydronephrosis or mass. Spleen is normal, minute splenule present at the inferior margin. There is no retroperitoneal adenopathy. Beatriz ng bases are clear. Aorta shows normal caliber. There is a small hiatal hernia. IMPRESSION: Hepatomegaly with probable hepatic steatosis. Small hiatal hernia suspected. Additional f indings above.
== END | disposition home or self-care (01) ==
LOC: RADMRIMAIN 08:52
PROVIDERS: ATTEND Internal Medicine Gastroenterology
DX: R16.0 Hepatomegaly, not elsewhere classified (principal); K85.90 Acute pancreatitis without necrosis or infection, unspecified
CPT/HCPCS: 74183; A9585

== ENCOUNTER → 2019-08-30 | Outpatient (CLI) | payer OTHER ==
[2019-08-30 09:30] LABS: HGB 15.7 gm/dL (11.4-16.0); MCH 33.1 pg (25.0-35.0); MCHC 34.2 g/dL (31.0-37.0); MCV 96.9 fL (80.0-100.0); Mean Platelet Volume 8.4; Platelet Count 205 k/uL (150-450); RBC 4.75 m/uL (3.80-5.40); WBC 7.4 k/uL (3.8-10.6)
[2019-08-30 15:51] LABS: Ferritin 269.6 ng/mL (10.0-291.0)
[2019-08-30 16:08] LABS: % Iron Saturation 35.17 (12.00-45.00); ALT 61 U/L (8-44); AST 70 U/L (13-35); African American GFR (CKD) 101.6 (60.0-200.0); Alkaline Phosphatase 80 U/L (41-126); Amylase 22 U/L (23-121); BUN/Creat Ratio 8.89 Ratio (12.00-20.00); Calcium 10.2 mg/dL (8.7-10.3); Carbon Dioxide 22.1 mmol/L (21.6-31.8); Chloride 99 mmol/L (96-109); Globulin 2.7 g/dL (1.6-3.3); Glucose 132 mg/dL (70-110); Iron 102 ug/dL (50-170); Non-African American GFR(CKD) 87.6 (60.0-200.0); Potassium 3.5 mmol/L (3.5-5.5); Sodium 134 mmol/L (135-145); Total Bilirubin 0.6 mg/dL (0.2-1.2); Total Iron Binding Capacity 290 ug/dL (228-460); Total Protein 7.3 g/dL (6.2-8.2); Triglycerides >1100.0 mg/dL (0.0-149.0)
[2019-08-30 16:52] LABS: Hepatitis B Surface Antigen Non-Reactive (Non-Reactive)
[2019-08-30 18:03] LABS: HIV 2 AB Non-Reactive (Non-Reactive); HIV AB P24 Non-Reactive (Non-Reactive); HIV P24 AG Non-Reactive (Non-Reactive)
[2019-08-31 12:42] LABS: Ceruloplasmin 31.6 mg/dL (20.0-60.0)
[2019-08-31 15:19] LABS: ANA Pattern Speckled
== END | disposition home or self-care (01) ==
LOC: LABWHC1 07:57
PROVIDERS: ATTEND Family Medicine
DX: K85.90 Acute pancreatitis without necrosis or infection, unspecified (principal); S09.90XD Unspecified injury of head, subsequent encounter; R11.0 Nausea; R74.8 Abnormal levels of other serum enzymes
CPT/HCPCS: 36415; 80053; 82150; 82390; 82728; 83516; 83540; 83550; 83690; 83721; 84478; 85027; 86038; 86039; 87340; 87390; 87522

== ENCOUNTER 2019-09-16 12:08 | Emergency (ER) | payer OTHER ==
[2019-09-16] MEDS ORDERED: METOCLOPRAMIDE 5 MG/ML 2 ML VIAL IVP STA (12:42)
[2019-09-16] MEDS ORDERED: SODIUM CHLORIDE 0.9% 1,000 ML IV STA (12:42)
[2019-09-16] MEDS ORDERED: KETOROLAC 30 MG/ML 1 ML VIAL IVP STA (12:42)
[2019-09-16] MEDS ORDERED: diphenhydrAMINE 50 MG/ML 1 ML VIAL IVP STA (12:42)
[2019-09-16 13:15] LABS: Amorphous Sediment,Urine Rare /hpf; Appearance,Urine Cloudy (Clear); Bacteria,Urine Many /hpf; Bilirubin,Urine Negative (Negative); Blood,Urine Trace (Negative); Color,Urine Yellow; Glucose,Urine (UA) 3+ (Negative); Hyaline Casts,Urine 1 /lpf (0-2); Ketones,Urine Negative (Negative); Leukocyte Esterase,Urine Large (Negative); Mucus,Urine Few /hpf; Nitrite,Urine Negative (Negative); Protein,Urine Trace (Negative); RBC,Urine 3 /hpf (0-5); Specific Gravity,Urine 1.017 (1.001-1.035); Squamous Epithelial Cell,Urine 8 /hpf (0-4); Urobilinogen,Urine <2.0 mg/dL (<2.0); WBC,Urine 15 /hpf (0-5)
--- NOTE | 2019-09-16 14:04 | ED ---
General Adult HPI - General Chief complaint: Headache Stated complaint: Headache,Stomach Pains Time Seen by Provider: 09/16/19 12:30 Source: patient, RN notes reviewed Mode of arrival: ambulatory Limitations: no limitations - History of Present Illness Initial comments: 28-year-old female with a past medical history of asthma, diabetes mellitus, GERD, migraines, degenerative disc disease, endometriosis, lupus, pancreatitis presents to the emergency department for multiple complaints. Patient reports that she has had a headache for the past 3 days. Patient states this headache came on gradually and is now worsening today. Patient reports that she is sensitive to light and sound. She denies any visual changes or blurry vision. Eyes diplopia Patient wearing sunglasses. Patient reports that this is her normal migraine but she ran out of Tylenol 3. Patient also presenting for generalized abdominal pain. Patient has had diarrhea for the past 3 days with associated nausea but denies vomiting. Denies fevers or chills.Patient has no other complaints at this time including shortness of breath, chest pain, vomiting, or visual changes. - Related Data Home Medications Medication Instructions Recorded Confirmed Omeprazole [PriLOSEC] 40 mg PO HS 07/29/16 07/13/19 EPINEPHrine [Epipen 2-Mike] 0.3 mg IM ONCE PRN 10/16/18 07/13/19 QUEtiapine FUMARATE [SEROquel] 300 mg PO HS 11/18/18 07/13/19 Ondansetron [Zofran ODT] 4 mg PO Q6H PRN 02/07/19 07/13/19 metFORMIN HCL [metFORMIN HCL ER] 750 mg PO HS 02/07/19 07/13/19 sitaGLIPtin [Januvia] 100 mg PO HS 02/07/19 07/13/19 Cyanocobalamin (Vitamin B-12) 1,000 mcg PO HS 05/08/19 07/13/19 [Vitamin B-12] Ergocalciferol [Vitamin D2 50,000 unit PO TH 05/08/19 07/13/19 (DRISDOL)] Hydrocortisone Cream 1 applic TOPICAL BID PRN 05/08/19 07/13/19 [Hydrocortisone 2.5% Cream] Propranolol HCl 20 mg PO HS 05/08/19 07/13/19 SUMAtriptan SUCCINATE [Imitrex] 50 mg PO DIRECTED PRN 05/08/19 07/13/19 Topiramate [Topamax] 50 mg PO HS 05/08/19 07/13/19 tiZANidine [Zanaflex] 4 mg PO BID PRN 05/08/19 07/13/19 Dicyclomine [Bentyl] 20 mg PO BID 05/16/19 07/13/19 Acetaminophen-Codeine 300-30mg 1 tab PO Q8H PRN 07/13/19 07/13/19 [Tylenol w/codeine #3] Atorvastatin [Lipitor] 40 mg PO DAILY 07/13/19 07/13/19 Previous Rx's Medication Instructions Recorded Pantoprazole [Protonix] 40 mg PO BID #60 tablet. 05/12/19 Docusate [Colace] 100 mg PO DAILY PRN #30 cap 05/20/19 Cephalexin [Keflex] 500 mg PO Q6HR #21 cap 07/13/19 Ondansetron Odt [Zofran Odt] 4 mg PO Q8HR PRN #10 tab 07/13/19 Allergies Allergy/AdvReac Type Severity Reaction Status Date / Time bee pollen Allergy Severe Anaphylaxis Verified 09/16/19 12:18 haloperidol [From Haldol] Allergy Severe QUIT Verified 09/16/19 12:18 BREATHING haloperidol lactate Allergy Severe QUIT Verified 09/16/19 12:18 [From Haldol] BREATHING latex Allergy Severe RASH-THROAT Verified 09/16/19 12:18 CLOSES tramadol Allergy Severe Nausea & Verified 09/16/19 12:18 Vomiting prednisone Allergy THROAT Verified 09/16/19 12:18 SWELLS spider venom Allergy Swelling Verified 09/16/19 12:18 Sulfa (Sulfonamide Allergy THROAT Verified 09/16/19 12:18 Antibiotics) SWELLS promethazine HCl AdvReac Severe Nausea & Verified 09/16/19 12:18 [From Phenergan] Vomiting amoxicillin AdvReac Nausea & Verified 09/16/19 12:18 Vomiting WASP Allergy Severe Swelling Uncoded 09/16/19 12:18 ANTS Allergy Mild Anaphylaxis Uncoded 09/16/19 12:18 Review of Systems ROS Statement: Those systems with pertinent positive or pertinent negative responses have been documented in the HPI. ROS Other: All systems not noted in ROS Statement are negative. Past Medical History Past Medical History: Asthma, Diabetes Mellitus, GERD/Reflux Additional Past Medical History / Comment(s): migraines, degenerative disk disease, endometriosis, lupus, pancreatitis History of Any Multi-Drug Resistant Organisms: None Reported Past Surgical History: Orthopedic Surgery Additional Past Surgical History / Comment(s): laparoscopc surgery for endometriosis, cyst removed from left foot, EGD Past Anesthesia/Blood Transfusion Reactions: Previous Problems w/ Anesthesia Additional Past Anesthesia/Blood Transfusion Reaction / Comment(s): hard to wake up for 48-72 hours after laparoscopic surgery-was in hosp. for 3 days Past Psychological History: Anxiety, Depression, PTSD Smoking Status: Never smoker Past Alcohol Use History: None Reported Past Drug Use History: None Reported - Past Family History Mother Family Medical History: No Reported History Additional Family Medical History / Comment(s): hx migraines Father Family Medical History: Coronary Artery Disease (CAD), Hypertension Additional Family Medical History / Comment(s): ddd, alcoholism & drug use General Exam Limitations: no limitations General appearance: alert, in no apparent distress Head exam: Present: atraumatic, normocephalic, normal inspection Eye exam: Present: normal appearance, PERRL, EOMI. Absent: scleral icterus, conjunctival injection, periorbital swelling ENT exam: Present: normal exam, mucous membranes moist Neck exam: Present: normal inspection, full ROM. Absent: tenderness, meningismus, lymphadenopathy Respiratory exam: Present: normal lung sounds bilaterally. Absent: respiratory distress, wheezes, rales, rhonchi, stridor Cardiovascular Exam: Present: regular rate, normal rhythm, normal heart sounds. Absent: systolic murmur, diastolic murmur, rubs, gallop, clicks GI/Abdominal exam: Present: soft, tenderness (Minimal generalized abdominal tenderness without guarding or rebound), normal bowel sounds. Absent: distended, guarding, rebound, rigid Expanded GI/Abdominal exam: Absent: psoas sign, obturator sign, heel tap sign, Velasquez's sign, Rovsing's sign, tenderness at McBurney's Point Neurological exam: Present: alert Course Vital Signs 09/16/19 09/16/19 12:14 15:26 Temperature 97.5 F L 97.9 F Pulse Rate 91 85 Respiratory 18 16 Rate Blood Pressure 100/69 119/81 O2 Sat by Pulse 99 98 Oximetry Medical Decision Making - Medical Decision Making Vitals are stable. HPI physical exam is documented. CBC is unremarkable. No leukocytosis. CMP also unremarkable. Transaminitis is patient's baseline. Patient has a history of pancreatitis however today amylase and lipase are within normal limits. Urinalysis does show 15 white blood cells with large leukocyte Estrace however there are 8 squamous cells and patient is denying any urinary symptoms. Therefore we will await blood culture which is pending. Ultrasound was obtained of the gallbladder which was negative. Patient is having diarrhea likely has a viral gastroenteritis. Patient will follow up with primary care and return for any worsening symptoms Patient requesting Tylenol 3 as she ran out of her own yesterday. Will be given starter pack. - Lab Data Result diagrams: 09/16/19 13:23 09/16/19 13:23 Lab Results 09/16/19 09/16/19 09/16/19 Range/Units 12:50 12:50 13:23 WBC 5.0 (3.8-10.6) k/uL RBC 4.34 (3.80-5.40) m/uL Hgb 13.9 (11.4-16.0) gm/dL Hct 41.3 (34.0-46.0) % MCV 95.2 (80.0-100.0) fL MCH 31.9 (25.0-35.0) pg MCHC 33.5 (31.0-37.0) g/dL RDW 12.6 (11.5-15.5) % Plt Count 158 (150-450) k/uL Neutrophils % (Manual) 48 % Lymphocytes % (Manual) 46 % Monocytes % (Manual) 4 % Eosinophils % (Manual) 1 % Basophils % (Manual) 1 % Neutrophils # (Manual) 2.40 (1.3-7.7) k/uL Lymphocytes # (Manual) 2.30 (1.0-4.8) k/uL Monocytes # (Manual) 0.20 (0-1.0) k/uL Eosinophils # (Manual) 0.05 (0-0.7) k/uL Basophils # (Manual) 0.05 (0-0.2) k/uL Nucleated RBCs 0 (0-0) /100 WBC Manual Slide Review Performed Large Platelets Present RBC Morphology Normal Sodium (137-145) mmol/L Potassium (3.5-5.1) mmol/L Chloride (98-107) mmol/L Carbon Dioxide (22-30) mmol/L Anion Gap mmol/L BUN (7-17) mg/dL Creatinine (0.52-1.04) mg/dL Est GFR (CKD-EPI)AfAm (>60 ml/min/1.73 sqM) Est GFR (CKD-EPI)NonAf (>60 ml/min/1.73 sqM) Glucose (74-99) mg/dL Calcium (8.4-10.2) mg/dL Total Bilirubin (0.2-1.3) mg/dL AST (14-36) U/L ALT (4-34) U/L Alkaline Phosphatase (38-126) U/L Total Protein (6.3-8.2) g/dL Albumin (3.5-5.0) g/dL Amylase (30-110) U/L Lipase (23-300) U/L Urine Color Yellow Urine Appearance Cloudy H (Clear) Urine pH 6.0 (5.0-8.0) Ur Specific [place] 1.017 (1.001-1.035) Urine Protein Trace H (Negative) Urine Glucose (UA) 3+ H (Negative) Urine Ketones Negative (Negative) Urine Blood Trace H (Negative) Urine Nitrite Negative (Negative) Urine Bilirubin Negative (Negative) Urine Urobilinogen <2.0 (<2.0) mg/dL Ur Leukocyte Esterase Large H (Negative) Urine RBC 3 (0-5) /hpf Urine WBC 15 H (0-5) /hpf Ur Squamous Epith Cells 8 H (0-4) /hpf Amorphous Sediment Rare H (None) /hpf Urine Bacteria Many H (None) /hpf Hyaline Casts 1 (0-2) /lpf Urine Mucus Few H (None) /hpf Urine HCG, Qual Not Detected (Not Detectd) 09/16/19 Range/Units 13:23 WBC (3.8-10.6) k/uL RBC (3.80-5.40) m/uL Hgb (11.4-16.0) gm/dL Hct (34.0-46.0) % MCV (80.0-100.0) fL MCH (25.0-35.0) pg MCHC (31.0-37.0) g/dL RDW (11.5-15.5) % Plt Count (150-450) k/uL Neutrophils % (Manual) % Lymphocytes % (Manual) % Monocytes % (Manual) % Eosinophils % (Manual) % Basophils % (Manual) % Neutrophils # (Manual) (1.3-7.7) k/uL Lymphocytes # (Manual) (1.0-4.8) k/uL Monocytes # (Manual) (0-1.0) k/uL Eosinophils # (Manual) (0-0.7) k/uL Basophils # (Manual) (0-0.2) k/uL Nucleated RBCs (0-0) /100 WBC Manual Slide Review Large Platelets RBC Morphology Sodium 135 L (137-145) mmol/L Potassium 5.0 (3.5-5.1) mmol/L Chloride 106 (98-107) mmol/L Carbon Dioxide 19 L (22-30) mmol/L Anion Gap 10 mmol/L BUN 6 L (7-17) mg/dL Creatinine 0.53 (0.52-1.04) mg/dL Est GFR (CKD-EPI)AfAm >90 (>60 ml/min/1.73 sqM) Est GFR (CKD-EPI)NonAf >90 (>60 ml/min/1.73 sqM) Glucose 165 H (74-99) mg/dL Calcium 9.6 (8.4-10.2) mg/dL Total Bilirubin 1.0 (0.2-1.3) mg/dL AST 109 H (14-36) U/L ALT 59 H (4-34) U/L Alkaline Phosphatase 77 (38-126) U/L Total Protein 7.4 (6.3-8.2) g/dL Albumin 3.8 (3.5-5.0) g/dL Amylase 37 (30-110) U/L Lipase 90 (23-300) U/L Urine Color Urine Appearance (Clear) Urine pH (5.0-8.0) Ur Specific Vida (1.001-1.035) Urine Protein (Negative) Urine Glucose (UA) (Negative) Urine Ketones (Negative) Urine Blood (Negative) Urine Nitrite (Negative) Urine Bilirubin (Negative) Urine Urobilinogen (<2.0) mg/dL Ur Leukocyte Esterase (Negative) Urine RBC (0-5) /hpf Urine WBC (0-5) /hpf Ur Squamous Epith Cells (0-4) /hpf Amorphous Sediment (None) /hpf Urine Bacteria (None) /hpf Hyaline Casts (0-2) /lpf Urine Mucus (None) /hpf Urine HCG, Qual (Not Detectd) Disposition Clinical Impression: Abdominal pain Disposition: HOME SELF-CARE Condition: Fair Instructions (If sedation given, give patient instructions): Abdominal Pain (ED) Additional Instructions: Please take Motrin for pain. If pain is severe take Tylenol [address] operate machinery while taking Tylenol 3. Follow-up with your primary care provider for further Tylenol 3 refills. Return to the emergency room for any worsening symptoms. Is patient prescribed a controlled substance at d/c from ED?: No Referrals: Isi Carolina MD [Primary Care Provider] - 1-2 days Time of Disposition: 16:05
[2019-09-16 14:12] LABS: ALT 59 U/L (4-34); AST 109 U/L (14-36); African American GFR (CKD) >90 (>60 ml/min/1.73 sqM); Albumin 3.8 g/dL (3.5-5.0); Alkaline Phosphatase 77 U/L (38-126); Amylase 37 U/L (30-110); Anion Gap 10 mmol/L; Blood Urea Nitrogen 6 mg/dL (7-17); Calcium 9.6 mg/dL (8.4-10.2); Carbon Dioxide 19 mmol/L (22-30); Chloride 106 mmol/L (98-107); Glucose 165 mg/dL (74-99); Non-African American GFR(CKD) >90 (>60 ml/min/1.73 sqM); Sodium 135 mmol/L (137-145); Total Protein 7.4 g/dL (6.3-8.2)
[2019-09-16] MEDS ORDERED: HYDROmorphone 0.5 MG/0.5 ML SYRINGE IVP STA (14:53)
[2019-09-16 15:01] LABS: HCT 41.3 % (34.0-46.0); HGB 13.9 gm/dL (11.4-16.0); MCH 31.9 pg (25.0-35.0); MCHC 33.5 g/dL (31.0-37.0); MCV 95.2 fL (80.0-100.0); Mean Platelet Volume 11.2; Platelet Count 158 k/uL (150-450); RBC 4.34 m/uL (3.80-5.40); RDW 12.6 % (11.5-15.5)
[2019-09-16 15:15] LABS: Basophils # (M) 0.05 k/uL (0-0.2); Eosinophils # (M) 0.05 k/uL (0-0.7); Neutrophils % (M) 48 %; Nucleated Red Blood Cells 0 /100 WBC (0-0); Total Cells Counted 100
[2019-09-16 15:16] LABS: Large Platelets Present
[2019-09-16 15:27] VITALS: BP 119/81; PULSE 85; RESP 16; TEMP 97.9
--- NOTE | 2019-09-16 15:56 | US ---
EXAMINATION TYPE: US gallbladder DATE OF EXAM: 09/16/2019 COMPARISON: multiple US's and CT's. CLINICAL HISTORY: RUQ pain. EXAM MEASUREMENTS: Liver Length: 16.9 cm Gallbladder Wall: 0.2 cm CBD: 0.4 cm Right Kidney: 10.7 x 4.6 x 5.6 cm Technically difficult exam due to midline bowel gas and patient body habitus. Pancreas: not well visualized. Liver: difficult to penetrate Gallbladder: No stones seen Evidence for sonographic Velasquez's sign: Yes CBD: wnl Right Kidney: No hydronephrosis or masses seen IMPRESSION: No gallstones or dilated ducts seen.
[2019-09-16] MEDS ORDERED: ACET/COD 300 MG/30 MG STARTER PACK 6 TAB BTL PO STA (16:03)
== END 2019-09-16 16:22 | disposition home or self-care (01) ==
LOC: EC 12:08
DX: R10.84 Generalized abdominal pain (principal); G43.909 Migraine, unspecified, not intractable, without status migrainosus; R11.0 Nausea; E11.9 Type 2 diabetes mellitus without complications; K21.9 Gastro-esophageal reflux disease without esophagitis; F41.9 Anxiety disorder, unspecified; F32.9 Major depressive disorder, single episode, unspecified; F43.10 Post-traumatic stress disorder, unspecified; Z79.84 Long term (current) use of oral hypoglycemic drugs; Z79.899 Other long term (current) drug therapy; Z88.0 Allergy status to penicillin; Z88.2 Allergy status to sulfonamides; Z88.6 Allergy status to analgesic agent; Z88.8 Allergy status to other drugs, medicaments and biological substances; Z91.040 Latex allergy status; Z91.038 Other insect allergy status
CPT/HCPCS: 36415; 80053; 82150; 83690; 85025; 81001; 81025; 87086; 76705; 99284; 96374; 96375 ×3; 96361; J1200; J2765; J1885; J1170

== ENCOUNTER 2019-10-01 14:56 | Emergency (ER) | payer OTHER ==
[2019-10-01] MEDS ORDERED: ONDANSETRON 4 MG/2 ML VIAL IVP STA (15:36)
[2019-10-01] MEDS ORDERED: SODIUM CHLORIDE 0.9% 1,000 ML IV STA (15:36)
[2019-10-01] MEDS ORDERED: KETOROLAC 30 MG/ML 1 ML VIAL IVP STA (15:36)
[2019-10-01] MEDS ORDERED: diphenhydrAMINE 50 MG/ML 1 ML VIAL IVP STA (15:36)
--- NOTE | 2019-10-01 15:39 | ED ---
General Adult HPI - General Chief complaint: Abdominal Pain Stated complaint: rt sided abd pain, headache Time Seen by Provider: 10/01/19 15:28 Source: patient Mode of arrival: ambulatory Limitations: no limitations - History of Present Illness Initial comments: Dictation was produced using [employer] dictation software. please excuse any grammatical, word or spelling errors. This patient was cared for during a federal and state declared state of e mergency secondary to Covid 19 Chief Complaint: 28-year-old male presents with headache and right flank bruise. History of Present Illness: Patient's 28-year-old female she presents today with headache. Patient has a headache since yesterday. Patient's wound to the emergency department for multiple visitations for a myriad of complaints. Patient states that she has a headache that's located to the bifrontal region. She states that her headache is typical for her usual headaches. She denies this headache being the worst headache of her life. Patient has been to the emergency department for headaches in the past. Patient states she also has a bruise on her right flank that she does not know how it got there. Patient denies any trauma. Denies any neuro deficits The ROS documented in this emergency department record has been reviewed and confirmed by me. Those systems with pertinent positive or negative responses have been documented in the HPI. All other systems are other negative and/or noncontributory. PHYSICAL EXAM: General Impression: Alert and oriented x3, not in acute distress HEENT: Normocephalic atraumatic, extra-ocular movements intact, pupils equal and reactive to light bilaterally, mucous membranes moist. Cardiovascular: Heart regular rate and rhythm Chest: Able to complete full sentences, no retractions, no tachypnea Abdomen: abdomen soft, non-tender, non-distended, no organomegaly, negative Velasquez sign Musculoskeletal: Pulses present and equal in all extremities, no peripheral edema Motor: no focal deficits noted Neurological: CN II-XII grossly intact, no focal motor or sensory deficits noted Skin: Blue coloration to the right flank that wipes off with alcohol swab Psych: Normal affect and mood ED course: 28-year-old female presents with presents with clinical presentation consistent with migraine headache and right flank bruise. Vital signs upon arrival are within acceptable limits. Patient had some coloration to her right flank area that wiped off with an alcohol swab. No identifiable bruises.. There is concern of malingeringLaboratory evaluation obtained. CBC unremarkable. There is mild non-gap acidosis. Very mild. Rest of metabolic panel is unremarkable. Urine hCG is negative. No concern for intra-abdominal trauma. Patient's headache is improved after headache cocktail. Patient will be discharged. - Related Data Home Medications Medication Instructions Recorded Confirmed Omeprazole [PriLOSEC] 40 mg PO HS 07/29/16 07/13/19 EPINEPHrine [Epipen 2-Mike] 0.3 mg IM ONCE PRN 10/16/18 07/13/19 QUEtiapine FUMARATE [SEROquel] 300 mg PO HS 11/18/18 07/13/19 Ondansetron [Zofran ODT] 4 mg PO Q6H PRN 02/07/19 07/13/19 metFORMIN HCL [metFORMIN HCL ER] 750 mg PO HS 02/07/19 07/13/19 sitaGLIPtin [Januvia] 100 mg PO HS 02/07/19 07/13/19 Cyanocobalamin (Vitamin B-12) 1,000 mcg PO HS 05/08/19 07/13/19 [Vitamin B-12] Ergocalciferol [Vitamin D2 50,000 unit PO TH 05/08/19 07/13/19 (ISDJOSIAH)] Hydrocortisone Cream 1 applic TOPICAL BID PRN 05/08/19 07/13/19 [Hydrocortisone 2.5% Cream] Propranolol HCl 20 mg PO HS 05/08/19 07/13/19 SUMAtriptan SUCCINATE [Imitrex] 50 mg PO DIRECTED PRN 05/08/19 07/13/19 Topiramate [Topamax] 50 mg PO HS 05/08/19 07/13/19 tiZANidine [Zanaflex] 4 mg PO BID PRN 05/08/19 07/13/19 Dicyclomine [Bentyl] 20 mg PO BID 05/16/19 07/13/19 Acetaminophen-Codeine 300-30mg 1 tab PO Q8H PRN 07/13/19 07/13/19 [Tylenol w/codeine #3] Atorvastatin [Lipitor] 40 mg PO DAILY 07/13/19 07/13/19 Previous Rx's Medication Instructions Recorded Pantoprazole [Protonix] 40 mg PO BID #60 tablet. 05/12/19 Docusate [Colace] 100 mg PO DAILY PRN #30 cap 05/20/19 Cephalexin [Keflex] 500 mg PO Q6HR #21 cap 07/13/19 Ondansetron Odt [Zofran Odt] 4 mg PO Q8HR PRN #10 tab 07/13/19 Allergies Allergy/AdvReac Type Severity Reaction Status Date / Time bee pollen Allergy Severe Anaphylaxis Verified 10/01/19 15:25 haloperidol [From Haldol] Allergy Severe QUIT Verified 10/01/19 15:25 BREATHING haloperidol lactate Allergy Severe QUIT Verified 10/01/19 15:25 [From Haldol] BREATHING latex Allergy Severe RASH-THROAT Verified 10/01/19 15:25 CLOSES tramadol Allergy Severe Nausea & Verified 10/01/19 15:25 Vomiting prednisone Allergy THROAT Verified 10/01/19 15:25 SWELLS spider venom Allergy Swelling Verified 10/01/19 15:25 Sulfa (Sulfonamide Allergy THROAT Verified 10/01/19 15:25 Antibiotics) SWELLS promethazine HCl AdvReac Severe Nausea & Verified 10/01/19 15:25 [From Phenergan] Vomiting amoxicillin AdvReac Nausea & Verified 10/01/19 15:25 Vomiting WASP Allergy Severe Swelling Uncoded 10/01/19 15:25 ANTS Allergy Mild Anaphylaxis Uncoded 10/01/19 15:25 Review of Systems ROS Statement: Those systems with pertinent positive or pertinent negative responses have been documented in the HPI. ROS Other: All systems not noted in ROS Statement are negative. Past Medical History Past Medical History: Asthma, Diabetes Mellitus, GERD/Reflux Additional Past Medical History / Comment(s): migraines, degenerative disk disease, endometriosis, lupus, pancreatitis History of Any Multi-Drug Resistant Organisms: None Reported Past Surgical History: Orthopedic Surgery Additional Past Surgical History / Comment(s): laparoscopc surgery for endometriosis, cyst removed from left foot, EGD Past Anesthesia/Blood Transfusion Reactions: Previous Problems w/ Anesthesia Additional Past Anesthesia/Blood Transfusion Reaction / Comment(s): hard to wake up for 48-72 hours after laparoscopic surgery-was in hosp. for 3 days Past Psychological History: Anxiety, Depression, PTSD Smoking Status: Never smoker Past Alcohol Use History: None Reported Past Drug Use History: None Reported - Past Family History Mother Family Medical History: No Reported History Additional Family Medical History / Comment(s): hx migraines Father Family Medical History: Coronary Artery Disease (CAD), Hypertension Additional Family Medical History / Comment(s): ddd, alcoholism & drug use General Exam Limitations: no limitations Course Vital Signs 10/01/19 15:18 Temperature 98.5 F Pulse Rate 76 Respiratory 18 Rate Blood Pressure 135/91 O2 Sat by Pulse 99 Oximetry Medical Decision Making - Lab Data Result diagrams: 10/01/19 16:30 10/01/19 16:30 Lab Results 10/01/19 10/01/19 10/01/19 Range/Units 16:10 16:30 16:30 WBC 7.9 (3.8-10.6) k/uL RBC 4.15 (3.80-5.40) m/uL Hgb 13.4 (11.4-16.0) gm/dL Hct 39.5 (34.0-46.0) % MCV 95.1 (80.0-100.0) fL MCH 32.3 (25.0-35.0) pg MCHC 34.0 (31.0-37.0) g/dL RDW 12.8 (11.5-15.5) % Plt Count 194 (150-450) k/uL Neutrophils % 57 % Lymphocytes % 35 % Monocytes % 4 % Eosinophils % 1 % Basophils % 0 % Neutrophils # 4.5 (1.3-7.7) k/uL Lymphocytes # 2.8 (1.0-4.8) k/uL Monocytes # 0.3 (0-1.0) k/uL Eosinophils # 0.1 (0-0.7) k/uL Basophils # 0.0 (0-0.2) k/uL Sodium 137 (137-145) mmol/L Potassium 4.4 (3.5-5.1) mmol/L Chloride 108 H (98-107) mmol/L Carbon Dioxide 19 L (22-30) mmol/L Anion Gap 10 mmol/L BUN 9 (7-17) mg/dL Creatinine 0.75 (0.52-1.04) mg/dL Est GFR (CKD-EPI)AfAm >90 (>60 ml/min/1.73 sqM) Est GFR (CKD-EPI)NonAf >90 (>60 ml/min/1.73 sqM) Glucose 129 H (74-99) mg/dL Calcium 10.4 H (8.4-10.2) mg/dL Total Bilirubin 0.4 (0.2-1.3) mg/dL AST 36 (14-36) U/L ALT 37 H (4-34) U/L Alkaline Phosphatase 91 (38-126) U/L Total Protein 7.1 (6.3-8.2) g/dL Albumin 3.8 (3.5-5.0) g/dL Lipase 212 (23-300) U/L Urine HCG, Qual Not Detected (Not Detectd) Disposition Clinical Impression: Headache Disposition: HOME SELF-CARE Condition: Good Instructions (If sedation given, give patient instructions): Acute Headache (ED) Is patient prescribed a controlled substance at d/c from ED?: No Referrals: Isi Carolina MD [Primary Care Provider] - 1-2 days Time of Disposition: 17:38
[2019-10-01 16:45] LABS: Basophils % (A) 0 %; Eosinophils # (A) 0.1 k/uL (0-0.7); Eosinophils % (A) 1 %; HCT 39.5 % (34.0-46.0); HGB 13.4 gm/dL (11.4-16.0); Lymphocytes # (A) 2.8 k/uL (1.0-4.8); Lymphocytes % (A) 35 %; MCH 32.3 pg (25.0-35.0); MCV 95.1 fL (80.0-100.0); Mean Platelet Volume 8.5; Monocytes # (A) 0.3 k/uL (0-1.0); Monocytes % (A) 4 %; Neutrophils # (A) 4.5 k/uL (1.3-7.7); Neutrophils % (A) 57 %; Platelet Count 194 k/uL (150-450); RBC 4.15 m/uL (3.80-5.40); RDW 12.8 % (11.5-15.5); WBC 7.9 k/uL (3.8-10.6)
[2019-10-01 16:55] LABS: ALT 37 U/L (4-34); AST 36 U/L (14-36); African American GFR (CKD) >90 (>60 ml/min/1.73 sqM); Albumin 3.8 g/dL (3.5-5.0); Alkaline Phosphatase 91 U/L (38-126); Anion Gap 10 mmol/L; Blood Urea Nitrogen 9 mg/dL (7-17); Calcium 10.4 mg/dL (8.4-10.2); Carbon Dioxide 19 mmol/L (22-30); Chloride 108 mmol/L (98-107); Glucose 129 mg/dL (74-99); Non-African American GFR(CKD) >90 (>60 ml/min/1.73 sqM); Potassium 4.4 mmol/L (3.5-5.1); Sodium 137 mmol/L (137-145); Total Bilirubin 0.4 mg/dL (0.2-1.3); Total Protein 7.1 g/dL (6.3-8.2)
[2019-10-01 17:55] VITALS: BP 128/74; PULSE 78; RESP 16; TEMP 98
== END 2019-10-01 17:54 | disposition home or self-care (01) ==
LOC: EC 14:56
DX: G43.909 Migraine, unspecified, not intractable, without status migrainosus (principal); S30.1XXA Contusion of abdominal wall, initial encounter; E87.2 Acidosis; E11.9 Type 2 diabetes mellitus without complications; K21.9 Gastro-esophageal reflux disease without esophagitis; Z79.84 Long term (current) use of oral hypoglycemic drugs; Z79.899 Other long term (current) drug therapy; Z91.038 Other insect allergy status; Z88.0 Allergy status to penicillin; Z88.8 Allergy status to other drugs, medicaments and biological substances; Z88.2 Allergy status to sulfonamides; Z88.6 Allergy status to analgesic agent; Z91.048 Other nonmedicinal substance allergy status; Z91.040 Latex allergy status; Z91.030 Bee allergy status; Z87.19 Personal history of other diseases of the digestive system; X58.XXXA Exposure to other specified factors, initial encounter
CPT/HCPCS: 36415; 80053; 83690; 85025; 81025; 99284; 96374; 96375 ×2; 96361; J1200; J2405; J1885

== ENCOUNTER 2019-10-17 21:40 | Emergency (ER) | payer OTHER ==
[2019-10-17 22:51] LABS: Appearance,Urine Cloudy (Clear); Bacteria,Urine Many /hpf; Bilirubin,Urine Negative (Negative); Blood,Urine Large (Negative); Budding Yeast,Urine Few /hpf; Color,Urine Yellow; Glucose,Urine (UA) Negative (Negative); Hyaline Casts,Urine 3 /lpf (0-2); Ketones,Urine Trace (Negative); Leukocyte Esterase,Urine Large (Negative); Mucus,Urine Moderate /hpf; Nitrite,Urine Positive (Negative); Protein,Urine 1+ (Negative); RBC,Urine 49 /hpf (0-5); Specific Gravity,Urine 1.026 (1.001-1.035); Squamous Epithelial Cell,Urine 6 /hpf (0-4); WBC,Urine 56 /hpf (0-5)
[2019-10-17 23:09] VITALS: BP 126/81; PULSE 98; RESP 18; TEMP 98.1
[2019-10-17] MEDS ORDERED: cefTRIAXone 1,000 MG VIAL (IM USE) IM STA (23:10)
[2019-10-17] MEDS ORDERED: KETOROLAC 60 MG/2 ML VIAL IM STA (23:10)
--- NOTE | 2019-10-17 23:11 | ED ---
Female Urogenital HPI - General Chief complaint: Urogenital Stated complaint: Blood in Urine,Headache Time Seen by Provider: 10/17/19 21:53 Source: patient Mode of arrival: ambulatory Limitations: no limitations - History of Present Illness Initial comments: 28-year-old female presenting today for chief complaint of dysuria urgency frequency and blood in urine. Patient states that it's difficult to tell if there is blood in her urine is coming from her vagina she states she is currently menstruating. Patient states that she does have pain when she peas urgency or frequency. Patient states it feels that she is urinary tract infection she states she has more midline pressure. Patient denies any severe lower pain denies a concern for sexual transmitted disease or vaginal discharge. Denies fevers flank or back pain. Patient denies any chills or rigors. Patient states she also has a slight headache she states she has chronic migraines she denies any sudden onset of headache of this being the worst headache of her life. Patient denies any weakness sensation deficits visual changes. Patient denies any nausea vomiting. Patient states she thought she would just mention it because she is at the emergency department for the urinary tract infection that she suspects. Patient denies has no additional complaints upon arrival patient appears nontoxic no acute distress. - Related Data Home Medications Medication Instructions Recorded Confirmed Omeprazole [PriLOSEC] 40 mg PO HS 07/29/16 10/17/19 EPINEPHrine [Epipen 2-Mike] 0.3 mg IM ONCE PRN 10/16/18 10/17/19 metFORMIN HCL [metFORMIN HCL ER] 750 mg PO W/SUPPER 02/07/19 10/17/19 Hydrocortisone Cream 1 applic TOPICAL BID PRN 05/08/19 10/17/19 [Hydrocortisone 2.5% Cream] Propranolol HCl 20 mg PO BID 05/08/19 10/17/19 SUMAtriptan SUCCINATE [Imitrex] 50 mg PO DIRECTED PRN 05/08/19 10/17/19 Topiramate [Topamax] 50 mg PO BID 05/08/19 10/17/19 tiZANidine [Zanaflex] 4 mg PO BID PRN 05/08/19 10/17/19 Albuterol Inhaler [Ventolin Hfa 2 puff INHALATION RT-Q4H PRN 10/17/19 10/17/19 Inhaler] Fenofibrate Nanocrystallized 145 mg PO DAILY 10/17/19 10/17/19 [Fenofibrate] Fish Oil/Dha/Epa [Fish Oil 1,200 1 cap PO DAILY 10/17/19 10/17/19 mg Fish Oil] Ibuprofen [Motrin Ib] 800 mg PO Q8H PRN 10/17/19 10/17/19 Melatonin 5 mg PO HS 10/17/19 10/17/19 QUEtiapine FUMARATE [SEROquel] 400 mg PO HS 10/17/19 10/17/19 Previous Rx's Medication Instructions Recorded Ondansetron Odt [Zofran Odt] 4 mg PO Q8HR PRN #10 tab 07/13/19 Cephalexin [Keflex] 500 mg PO Q8HR 5 Days #15 cap 10/17/19 Allergies Allergy/AdvReac Type Severity Reaction Status Date / Time bee pollen Allergy Severe Anaphylaxis Verified 10/17/19 22:24 haloperidol [From Haldol] Allergy Severe QUIT Verified 10/17/19 22:24 BREATHING haloperidol lactate Allergy Severe QUIT Verified 10/17/19 22:24 [From Haldol] BREATHING latex Allergy Severe RASH-THROAT Verified 10/17/19 22:24 CLOSES tramadol Allergy Severe Nausea & Verified 10/17/19 22:24 Vomiting prednisone Allergy THROAT Verified 10/17/19 22:24 SWELLS spider venom Allergy Swelling Verified 10/17/19 22:24 Sulfa (Sulfonamide Allergy THROAT Verified 10/17/19 22:24 Antibiotics) SWELLS promethazine HCl AdvReac Severe Nausea & Verified 10/17/19 22:24 [From Phenergan] Vomiting amoxicillin AdvReac Nausea & Verified 10/17/19 22:24 Vomiting WASP Allergy Severe Swelling Uncoded 10/17/19 21:48 ANTS Allergy Mild Anaphylaxis Uncoded 10/17/19 21:48 Review of Systems ROS Statement: Those systems with pertinent positive or pertinent negative responses have been documented in the HPI. ROS Other: All systems not noted in ROS Statement are negative. Past Medical History Past Medical History: Asthma, Diabetes Mellitus, GERD/Reflux Additional Past Medical History / Comment(s): migraines, degenerative disk disease, endometriosis, lupus, pancreatitis History of Any Multi-Drug Resistant Organisms: None Reported Past Surgical History: Orthopedic Surgery Additional Past Surgical History / Comment(s): laparoscopc surgery for endometriosis, cyst removed from left foot, EGD Past Anesthesia/Blood Transfusion Reactions: Previous Problems w/ Anesthesia Additional Past Anesthesia/Blood Transfusion Reaction / Comment(s): hard to wake up for 48-72 hours after laparoscopic surgery-was in hosp. for 3 days Past Psychological History: Anxiety, Depression, PTSD Smoking Status: Never smoker Past Alcohol Use History: None Reported Past Drug Use History: None Reported - Past Family History Mother Family Medical History: No Reported History Additional Family Medical History / Comment(s): hx migraines Father Family Medical History: Coronary Artery Disease (CAD), Hypertension Additional Family Medical History / Comment(s): ddd, alcoholism & drug use General Exam - General Exam Comments Initial Comments: General: The patient is awake and alert, in no distress Eye: +3 mm pupils are equal, round and reactive to light, extra-ocular movements are intact. No nystagmus. There is normal conjunctiva bilaterally. No signs of icterus. Ears, nose, mouth and throat: There are moist mucous membranes and no oral lesions. Neck: The neck is supple, there is no tenderness or JVD. Cardiovascular: There is a regular rate and rhythm. No murmur, rub or gallop is appreciated. Respiratory: Lungs are clear to auscultation, respirations are non-labored, breath sounds are equal. No wheezes, stridor, rales, or rhonchi. Gastrointestinal: Soft, non-distended, non-tender abdomen without masses or organomegaly noted. There is no rebound or guarding present. No CVA tenderness. Musculoskeletal: Normal ROM, no tenderness. Strength 5/5. Sensation intact. Radial pulses equal bilaterally 2+. Neurological: A&O x 3. CN II-XII intact, There are no obvious motor or sensory deficits. Coordination appears grossly intact. Speech is normal. Skin: Skin is warm and dry and no rashes or lesions are noted. Psychiatric: Cooperative, appropriate mood & affect, normal judgment. Limitations: no limitations Course Vital Signs 10/17/19 10/17/19 21:44 23:09 Temperature 98.3 F 98.1 F Pulse Rate 116 H 98 Respiratory 20 18 Rate Blood Pressure 127/87 126/81 O2 Sat by Pulse 96 98 Oximetry Medical Decision Making - Medical Decision Making 28-year-old male presenting for possible urinary tract infection headache. Urinalysis consistent with infection. Patient has no flank pain back pain concerning for stone or developing pyelonephritis. After settled in the emergency department patient's heart rate decreased. Blood pressure stable. Patient is afebrile. She does not appear toxic no history of kidney stones. Patient does have vaginal bleeding. HCG (-). Patient states she is chronic migraines denies any concerning changes with headache today. Patient usually treated with Toradol. Patient is no focal neurological deficits. Patient is given Toradol and Rocephin emergency Department B discharge with Keflex and instruction to follow-up with primary care provider return parameters and signs symptoms of pyelonephritis were discussed with patient who verbalized understanding patient was discharged. We'll offer discussed the case with attending provider Dr. Granda - Lab Data Lab Results 10/17/19 10/17/19 Range/Units 22:10 22:10 Urine Color Yellow Urine Appearance Cloudy H (Clear) Urine pH 6.0 (5.0-8.0) Ur Specific [place] 1.026 (1.001-1.035) Urine Protein 1+ H (Negative) Urine Glucose (UA) Negative (Negative) Urine Ketones Trace H (Negative) Urine Blood Large H (Negative) Urine Nitrite Positive H (Negative) Urine Bilirubin Negative (Negative) Urine Urobilinogen 2.0 (<2.0) mg/dL Ur Leukocyte Esterase Large H (Negative) Urine RBC 49 H (0-5) /hpf Urine WBC 56 H (0-5) /hpf Ur Squamous Epith Cells 6 H (0-4) /hpf Urine Bacteria Many H (None) /hpf Hyaline Casts 3 H (0-2) /lpf Urine Mucus Moderate H (None) /hpf Urine Yeast (Budding) Few H (None) /hpf Urine HCG, Qual Not Detected (Not Detectd) Disposition Clinical Impression: UTI (urinary tract infection), Headache Disposition: HOME SELF-CARE Condition: Good Instructions (If sedation given, give patient instructions): Urinary Tract Infection in Women (ED) Additional Instructions: Please use medication as discussed. Please follow-up with family doctor in the next 2 days. Return for fevers, back pain, side pain, lightheadedness, chills. Please return to emergency room if the symptoms increase or worsen or for any other concerns. Prescriptions: Cephalexin [Keflex] 500 mg PO Q8HR 5 Days #15 cap Is patient prescribed a controlled substance at d/c from ED?: No Referrals: Isi Carolina MD [Primary Care Provider] - 1-2 days Time of Disposition: 23:27
== END 2019-10-17 23:33 | disposition home or self-care (01) ==
LOC: EC 21:40
DX: N39.0 Urinary tract infection, site not specified (principal); R51 Headache; K21.9 Gastro-esophageal reflux disease without esophagitis; E11.9 Type 2 diabetes mellitus without complications; J45.909 Unspecified asthma, uncomplicated; F41.9 Anxiety disorder, unspecified; F32.9 Major depressive disorder, single episode, unspecified; Z79.899 Other long term (current) drug therapy; Z79.84 Long term (current) use of oral hypoglycemic drugs; Z91.030 Bee allergy status; Z88.8 Allergy status to other drugs, medicaments and biological substances; Z91.040 Latex allergy status; Z88.5 Allergy status to narcotic agent; Z88.2 Allergy status to sulfonamides; Z91.038 Other insect allergy status; Z88.0 Allergy status to penicillin
CPT/HCPCS: 81001; 81025; 87086; 99283; 96372 ×2; J0696; J1885

== ENCOUNTER 2019-11-06 16:26 | Emergency (ER) | payer OTHER ==
[2019-11-06 16:31] VITALS: BP 103/75; PULSE 95; RESP 18; TEMP 98.1
[2019-11-06] MEDS ORDERED: HYDROmorphone 1 MG/ML 1 ML SYRINGE IM STA (16:39)
[2019-11-06] MEDS ORDERED: KETOROLAC 60 MG/2 ML VIAL IM STA (16:39)
[2019-11-06] MEDS ORDERED: METOCLOPRAMIDE 5 MG/ML 2 ML VIAL IM STA (16:39)
--- NOTE | 2019-11-06 16:43 | ED ---
General Adult HPI - General Chief complaint: Headache Stated complaint: Headache Time Seen by Provider: 11/06/19 16:32 Source: patient, RN notes reviewed Mode of arrival: ambulatory Limitations: no limitations - History of Present Illness Initial comments: Patient is a pleasant 29-year-old female presenting to the emergency Department with complaints of headache. Onset of symptoms was around the past 3 days. Symptoms have been worsening. Symptoms are similar to her chronic headaches. Patient has had previous head CT's and MRIs and does see a neurologist. Patient has taken her sumatriptan and Tylenol and Motrin. Patient does have some blurry vision and photophobia. Patient also has nausea. Discomfort is in the frontal region. No confusion or weakness. No fever. - Related Data Home Medications Medication Instructions Recorded Confirmed Omeprazole [PriLOSEC] 40 mg PO HS 07/29/16 10/17/19 EPINEPHrine [Epipen 2-Mike] 0.3 mg IM ONCE PRN 10/16/18 10/17/19 metFORMIN HCL [metFORMIN HCL ER] 750 mg PO W/SUPPER 02/07/19 10/17/19 Hydrocortisone Cream 1 applic TOPICAL BID PRN 05/08/19 10/17/19 [Hydrocortisone 2.5% Cream] Propranolol HCl 20 mg PO BID 05/08/19 10/17/19 SUMAtriptan succinate [Imitrex] 50 mg PO DIRECTED PRN 05/08/19 10/17/19 Topiramate [Topamax] 50 mg PO BID 05/08/19 10/17/19 tiZANidine [Zanaflex] 4 mg PO BID PRN 05/08/19 10/17/19 Albuterol Inhaler [Ventolin Hfa 2 puff INHALATION RT-Q4H PRN 10/17/19 10/17/19 Inhaler] Fenofibrate Nanocrystallized 145 mg PO DAILY 10/17/19 10/17/19 [Fenofibrate] Fish Oil/Dha/Epa [Fish Oil 1,200 1 cap PO DAILY 10/17/19 10/17/19 mg Fish Oil] Ibuprofen [Motrin Ib] 800 mg PO Q8H PRN 10/17/19 10/17/19 Melatonin 5 mg PO HS 10/17/19 10/17/19 QUEtiapine FUMARATE [SEROquel] 400 mg PO HS 10/17/19 10/17/19 Previous Rx's Medication Instructions Recorded Ondansetron Odt [Zofran Odt] 4 mg PO Q8HR PRN #10 tab 07/13/19 Cephalexin [Keflex] 500 mg PO Q8HR 5 Days #15 cap 10/17/19 Cephalexin [Keflex] 500 mg PO Q8HR 5 Days #15 cap 10/18/19 Allergies Allergy/AdvReac Type Severity Reaction Status Date / Time bee pollen Allergy Severe Anaphylaxis Verified 11/06/19 16:32 haloperidol [From Haldol] Allergy Severe QUIT Verified 11/06/19 16:32 BREATHING haloperidol lactate Allergy Severe QUIT Verified 11/06/19 16:32 [From Haldol] BREATHING latex Allergy Severe RASH-THROAT Verified 11/06/19 16:32 CLOSES tramadol Allergy Severe Nausea & Verified 11/06/19 16:32 Vomiting prednisone Allergy THROAT Verified 11/06/19 16:32 SWELLS spider venom Allergy Swelling Verified 11/06/19 16:32 Sulfa (Sulfonamide Allergy THROAT Verified 11/06/19 16:32 Antibiotics) SWELLS promethazine HCl AdvReac Severe Nausea & Verified 11/06/19 16:32 [From Phenergan] Vomiting amoxicillin AdvReac Nausea & Verified 11/06/19 16:32 Vomiting WASP Allergy Severe Swelling Uncoded 11/06/19 16:32 ANTS Allergy Mild Anaphylaxis Uncoded 11/06/19 16:32 Review of Systems ROS Statement: Those systems with pertinent positive or pertinent negative responses have been documented in the HPI. ROS Other: All systems not noted in ROS Statement are negative. Constitutional: Denies: fever, chills Eyes: Denies: eye pain ENT: Denies: ear pain Respiratory: Denies: cough Cardiovascular: Denies: chest pain Endocrine: Denies: fatigue Gastrointestinal: Denies: abdominal pain Genitourinary: Denies: dysuria Musculoskeletal: Denies: back pain Skin: Denies: rash Neurological: Reports: headache. Denies: weakness, confusion Past Medical History Past Medical History: Asthma, Diabetes Mellitus, GERD/Reflux Additional Past Medical History / Comment(s): migraines, degenerative disk disease, endometriosis, lupus, pancreatitis History of Any Multi-Drug Resistant Organisms: None Reported Past Surgical History: Orthopedic Surgery Additional Past Surgical History / Comment(s): laparoscopc surgery for endometriosis, cyst removed from left foot, EGD Past Anesthesia/Blood Transfusion Reactions: Previous Problems w/ Anesthesia Additional Past Anesthesia/Blood Transfusion Reaction / Comment(s): hard to wake up for 48-72 hours after laparoscopic surgery-was in hosp. for 3 days Past Psychological History: Anxiety, Depression, PTSD Past Alcohol Use History: None Reported Past Drug Use History: None Reported - Past Family History Mother Family Medical History: No Reported History Additional Family Medical History / Comment(s): hx migraines Father Family Medical History: Coronary Artery Disease (CAD), Hypertension Additional Family Medical History / Comment(s): ddd, alcoholism & drug use General Exam Limitations: no limitations General appearance: alert, in no apparent distress Head exam: Present: normocephalic Eye exam: Present: normal appearance, PERRL, EOMI. Absent: nystagmus ENT exam: Present: normal oropharynx Neck exam: Present: normal inspection Respiratory exam: Present: normal lung sounds bilaterally Cardiovascular Exam: Present: regular rate, normal rhythm GI/Abdominal exam: Present: soft. Absent: tenderness Extremities exam: Present: normal inspection Neurological exam: Present: alert, CN II-XII intact. Absent: motor sensory deficit Expanded Neurological exam: Present: protecting the airway Speech: Present: fluid speech Cranial nerves: EOM's Intact: Normal, Facial Sensation: Normal Sensory exam: Upper Extremity Light Touch: Normal, Lower Extremity Light Touch: Normal Motor strength exam: RUE: 5, LUE: 5, RLE: 5, LLE: 5 Eye Response: (4) open spontaneously Motor Response: (6) obeys commands Verbal Response: (5) oriented Psychiatric exam: Present: normal affect, normal mood Skin exam: Present: normal color Course Vital Signs 11/06/19 16:27 Temperature 98.1 F Pulse Rate 95 Respiratory 18 Rate Blood Pressure 103/75 O2 Sat by Pulse 98 Oximetry Medical Decision Making - Medical Decision Making Patient is comfortable with medication and traction and discharge Disposition Clinical Impression: Cephalgia Disposition: HOME SELF-CARE Condition: Stable Instructions (If sedation given, give patient instructions): Acute Headache (ED) Additional Instructions: Please follow-up with primary care physician and your neurologist in the next couple days for recheck. Return for fevers, weakness, worsening or changing symptoms or other concerns. Is patient prescribed a controlled substance at d/c from ED?: No Referrals: Iis Carolina MD [Primary Care Provider] - 1-2 days Time of Disposition: 16:42
== END 2019-11-06 16:48 | disposition home or self-care (01) ==
LOC: EC 16:26
DX: G43.909 Migraine, unspecified, not intractable, without status migrainosus (principal); J45.909 Unspecified asthma, uncomplicated; E11.9 Type 2 diabetes mellitus without complications; K21.9 Gastro-esophageal reflux disease without esophagitis; F41.9 Anxiety disorder, unspecified; F32.9 Major depressive disorder, single episode, unspecified; F43.10 Post-traumatic stress disorder, unspecified; Z79.84 Long term (current) use of oral hypoglycemic drugs; Z79.51 Long term (current) use of inhaled steroids; Z79.899 Other long term (current) drug therapy; Z88.0 Allergy status to penicillin; Z88.2 Allergy status to sulfonamides; Z88.8 Allergy status to other drugs, medicaments and biological substances; Z88.5 Allergy status to narcotic agent; Z91.040 Latex allergy status; Z91.038 Other insect allergy status; Z91.030 Bee allergy status
CPT/HCPCS: 99283; 96372 ×3; J2765; J1885; J1170

== ENCOUNTER 2019-11-18 18:01 | Emergency (ER) | payer OTHER ==
[2019-11-18 18:07] VITALS: RESP 18
[2019-11-18] MEDS ORDERED: ONDANSETRON 4 MG/2 ML VIAL IVP STA (18:28)
[2019-11-18] MEDS ORDERED: SODIUM CHLORIDE 0.9% 1,000 ML IV STA (18:28)
[2019-11-18] MEDS ORDERED: KETOROLAC 30 MG/ML 1 ML VIAL IVP STA (18:28)
--- NOTE | 2019-11-18 18:32 | ED ---
Abdominal Pain HPI - General Chief Complaint: Abdominal Pain Stated Complaint: abd pain Time Seen by Provider: 11/18/19 18:11 Source: patient Mode of arrival: ambulatory Limitations: no limitations - History of Present Illness Initial Comments: patient is a 29-year-old female presenting to the emergency Department with complaints of left-sided abdominal pain that started approximate 4 AM this morning. Patient states she was having some nausea and vomiting during the night and then developed the pain. Patient states the pain has been consistent, is very sharp and is located in the left upper quadrant. She denies any radiation. She does admit to history of pancreatitis, as well as laparoscopic abdominal surgery secondary to endometriosis, no other abdominal surgeries. She denies any fever, chills, diarrhea. She's been having normal bowel movements. She denies any dysuria or increased frequency. She denies being at this time secondary to being to a female. She denies any chest pain or shortness of breath. She denies any changes in medications. She has no further complaints at this time. Upon arrival to the ER, she is slightly tachycardia, otherwise normal vitals. - Related Data Home Medications Medication Instructions Recorded Confirmed Omeprazole [PriLOSEC] 40 mg PO HS 07/29/16 10/17/19 EPINEPHrine [Epipen 2-Mike] 0.3 mg IM ONCE PRN 10/16/18 10/17/19 metFORMIN HCL [metFORMIN HCL ER] 750 mg PO W/SUPPER 02/07/19 10/17/19 Hydrocortisone Cream 1 applic TOPICAL BID PRN 05/08/19 10/17/19 [Hydrocortisone 2.5% Cream] Propranolol HCl 20 mg PO BID 05/08/19 10/17/19 SUMAtriptan succinate [Imitrex] 50 mg PO DIRECTED PRN 05/08/19 10/17/19 Topiramate [Topamax] 50 mg PO BID 05/08/19 10/17/19 tiZANidine [Zanaflex] 4 mg PO BID PRN 05/08/19 10/17/19 Albuterol Inhaler [Ventolin Hfa 2 puff INHALATION RT-Q4H PRN 10/17/19 10/17/19 Inhaler] Fenofibrate Nanocrystallized 145 mg PO DAILY 10/17/19 10/17/19 [Fenofibrate] Fish Oil/Dha/Epa [Fish Oil 1,200 1 cap PO DAILY 10/17/19 10/17/19 mg Fish Oil] Ibuprofen [Motrin Ib] 800 mg PO Q8H PRN 10/17/19 10/17/19 Melatonin 5 mg PO HS 10/17/19 10/17/19 QUEtiapine FUMARATE [SEROquel] 400 mg PO HS 10/17/19 10/17/19 Previous Rx's Medication Instructions Recorded Ondansetron Odt [Zofran Odt] 4 mg PO Q8HR PRN #10 tab 07/13/19 Cephalexin [Keflex] 500 mg PO Q8HR 5 Days #15 cap 10/17/19 Cephalexin [Keflex] 500 mg PO Q8HR 5 Days #15 cap 10/18/19 Allergies Allergy/AdvReac Type Severity Reaction Status Date / Time bee pollen Allergy Severe Anaphylaxis Verified 11/06/19 16:32 haloperidol [From Haldol] Allergy Severe QUIT Verified 11/06/19 16:32 BREATHING haloperidol lactate Allergy Severe QUIT Verified 11/06/19 16:32 [From Haldol] BREATHING latex Allergy Severe RASH-THROAT Verified 11/06/19 16:32 CLOSES tramadol Allergy Severe Nausea & Verified 11/06/19 16:32 Vomiting prednisone Allergy THROAT Verified 11/06/19 16:32 SWELLS spider venom Allergy Swelling Verified 11/06/19 16:32 Sulfa (Sulfonamide Allergy THROAT Verified 11/06/19 16:32 Antibiotics) SWELLS promethazine HCl AdvReac Severe Nausea & Verified 11/06/19 16:32 [From Phenergan] Vomiting amoxicillin AdvReac Nausea & Verified 11/06/19 16:32 Vomiting WASP Allergy Severe Swelling Uncoded 11/06/19 16:32 ANTS Allergy Mild Anaphylaxis Uncoded 11/06/19 16:32 Review of Systems ROS Statement: Those systems with pertinent positive or pertinent negative responses have been documented in the HPI. ROS Other: All systems not noted in ROS Statement are negative. Past Medical History Past Medical History: Asthma, Diabetes Mellitus, GERD/Reflux Additional Past Medical History / Comment(s): migraines, degenerative disk disease, endometriosis, lupus, pancreatitis History of Any Multi-Drug Resistant Organisms: None Reported Past Surgical History: Orthopedic Surgery Additional Past Surgical History / Comment(s): laparoscopc surgery for endometriosis, cyst removed from left foot, EGD Past Anesthesia/Blood Transfusion Reactions: Previous Problems w/ Anesthesia Additional Past Anesthesia/Blood Transfusion Reaction / Comment(s): hard to wake up for 48-72 hours after laparoscopic surgery-was in hosp. for 3 days Past Psychological History: Anxiety, Depression, PTSD Smoking Status: Never smoker Past Alcohol Use History: None Reported Past Drug Use History: None Reported - Past Family History Mother Family Medical History: No Reported History Additional Family Medical History / Comment(s): hx migraines Father Family Medical History: Coronary Artery Disease (CAD), Hypertension Additional Family Medical History / Comment(s): ddd, alcoholism & drug use General Exam - General Exam Comments Initial Comments: GENERAL: Patient is well-developed and well-nourished. Patient is nontoxic and in no acute distress, does appear uncomfortable. HEAD: Atraumatic, normocephalic. EYES: Pupils equal round and reactive to light, extraocular movements intact, sclera anicteric, conjunctiva are normal. Eyelids were unremarkable. ENT: TMs normal, nares patent, oropharynx clear without exudates. Moist mucous membranes. NECK: Normal range of motion, supple without lymphadenopathy or JVD. LUNGS: Unlabored respirations. Breath sounds clear to auscultation bilaterally and eq ual. No wheezes rales or rhonchi. HEART: Regular rate and rhythm without murmurs, rubs or gallops. ABDOMEN: tender to palpation of the left upper quadrant. Soft, normoactive bowel sounds. No guarding, no rebound. No masses appreciated. : Deferred MUSCULOSKELETAL: Normal extremities with adequate strength and normal range of motion, no pitting or edema. No clubbing or cyanosis. NEUROLOGICAL: Normal speech, normal gait. PSYCH: Normal mood, normal affect. SKIN: Warm, Dry, normal turgor, no rashes or lesions noted. Limitations: no limitations Course Vital Signs 11/18/19 11/18/19 18:03 21:35 Temperature 98.4 F 99.5 F Pulse Rate 109 H 90 Respiratory 18 18 Rate Blood Pressure 129/90 127/82 O2 Sat by Pulse 96 96 Oximetry - Reevaluation(s) Reevaluation #1: 11/18/19 20:25 there was a significant delay in obtaining blood work secondary to patient being a hard poke. There was at least 4 attempts made by different nurses. Ultrasound-guided was then used to obtain access. Medical Decision Making - Medical Decision Making patient is 29-year-old female here for left upper quadrant pain as well as nausea and vomiting started early this morning. She admits to history of pancreatitis. She is slightly tachycardia upon arrival was normal vitals. Lab work shows a normal white count, lactic acid is 1.6, platelet elevation in AST and ALT at 46 and 42. Lipase is slightly elevated at 359, urine shows no evidence of infection. Patient was given fluids, pain control. She does report improvement in her symptoms. I discussed the patient's symptoms are most likely related to a mild pancreatitis. I recommended a clear liquid diet for 1-2 days. She needs to follow up with her GI doctor. Patient will be sent home with Zofran as needed, recommend alternating Tylenol and Motrin for discomfort. Patient is in agreement with this plan of care. Return parameters were discussed with the patient she verbalized understanding. Case discussed with Dr Suzie Avalos. - Lab Data Result diagrams: 11/18/19 20:23 11/18/19 20:23 Lab Results 11/18/19 11/18/19 11/18/19 Range/Units 18:50 18:50 20:23 WBC 7.4 (3.8-10.6) k/uL RBC 4.20 (3.80-5.40) m/uL Hgb 14.0 (11.4-16.0) gm/dL Hct 40.9 (34.0-46.0) % MCV 97.3 (80.0-100.0) fL MCH 33.3 (25.0-35.0) pg MCHC 34.3 (31.0-37.0) g/dL RDW 13.0 (11.5-15.5) % Plt Count 278 (150-450) k/uL Neutrophils % 60 % Lymphocytes % 33 % Monocytes % 4 % Eosinophils % 2 % Basophils % 0 % Neutrophils # 4.4 (1.3-7.7) k/uL Lymphocytes # 2.4 (1.0-4.8) k/uL Monocytes # 0.3 (0-1.0) k/uL Eosinophils # 0.1 (0-0.7) k/uL Basophils # 0.0 (0-0.2) k/uL Sodium (137-145) mmol/L Potassium (3.5-5.1) mmol/L Chloride (98-107) mmol/L Carbon Dioxide (22-30) mmol/L Anion Gap mmol/L BUN (7-17) mg/dL Creatinine (0.52-1.04) mg/dL Est GFR (CKD-EPI)AfAm (>60 ml/min/1.73 sqM) Est GFR (CKD-EPI)NonAf (>60 ml/min/1.73 sqM) Glucose (74-99) mg/dL Plasma Lactic Acid Aurelio (0.7-2.0) mmol/L Calcium (8.4-10.2) mg/dL Total Bilirubin (0.2-1.3) mg/dL AST (14-36) U/L ALT (4-34) U/L Alkaline Phosphatase (38-126) U/L Total Protein (6.3-8.2) g/dL Albumin (3.5-5.0) g/dL Amylase (30-110) U/L Lipase (23-300) U/L Urine Color Yellow Urine Appearance Cloudy H (Clear) Urine pH 6.5 (5.0-8.0) Ur Specific Harrison 1.020 (1.001-1.035) Urine Protein Negative (Negative) Urine Glucose (UA) Negative (Negative) Urine Ketones Negative (Negative) Urine Blood Trace H (Negative) Urine Nitrite Negative (Negative) Urine Bilirubin Negative (Negative) Urine Urobilinogen <2.0 (<2.0) mg/dL Ur Leukocyte Esterase Trace H (Negative) Urine RBC 1 (0-5) /hpf Urine WBC 2 (0-5) /hpf Ur Squamous Epith Cells 7 H (0-4) /hpf Urine Bacteria Moderate H (None) /hpf Urine Mucus Rare H (None) /hpf Urine HCG, Qual Not Detected (Not Detectd) 11/18/19 11/18/19 Range/Units 20:23 20:23 WBC (3.8-10.6) k/uL RBC (3.80-5.40) m/uL Hgb (11.4-16.0) gm/dL Hct (34.0-46.0) % MCV (80.0-100.0) fL MCH (25.0-35.0) pg MCHC (31.0-37.0) g/dL RDW (11.5-15.5) % Plt Count (150-450) k/uL Neutrophils % % Lymphocytes % % Monocytes % % Eosinophils % % Basophils % % Neutrophils # (1.3-7.7) k/uL Lymphocytes # (1.0-4.8) k/uL Monocytes # (0-1.0) k/uL Eosinophils # (0-0.7) k/uL Basophils # (0-0.2) k/uL Sodium 136 L (137-145) mmol/L Potassium 4.5 (3.5-5.1) mmol/L Chloride 107 (98-107) mmol/L Carbon Dioxide 20 L (22-30) mmol/L Anion Gap 9 mmol/L BUN 14 (7-17) mg/dL Creatinine 0.96 (0.52-1.04) mg/dL Est GFR (CKD-EPI)AfAm >90 (>60 ml/min/1.73 sqM) Est GFR (CKD-EPI)NonAf 81 (>60 ml/min/1.73 sqM) Glucose 151 H (74-99) mg/dL Plasma Lactic Acid Aurelio 1.6 (0.7-2.0) mmol/L Calcium 10.6 H (8.4-10.2) mg/dL Total Bilirubin 0.4 (0.2-1.3) mg/dL AST 46 H (14-36) U/L ALT 42 H (4-34) U/L Alkaline Phosphatase 97 (38-126) U/L Total Protein 7.9 (6.3-8.2) g/dL Albumin 4.4 (3.5-5.0) g/dL Amylase 47 (30-110) U/L Lipase 359 H (23-300) U/L Urine Color Urine Appearance (Clear) Urine pH (5.0-8.0) Ur Specific Harrison (1.001-1.035) Urine Protein (Negative) Urine Glucose (UA) (Negative) Urine Ketones (Negative) Urine Blood (Negative) Urine Nitrite (Negative) Urine Bilirubin (Negative) Urine Urobilinogen (<2.0) mg/dL Ur Leukocyte Esterase (Negative) Urine RBC (0-5) /hpf Urine WBC (0-5) /hpf Ur Squamous Epith Cells (0-4) /hpf Urine Bacteria (None) /hpf Urine Mucus (None) /hpf Urine HCG, Qual (Not Detectd) Disposition Clinical Impression: Abdominal pain, Pancreatitis Disposition: HOME SELF-CARE Condition: Stable Instructions (If sedation given, give patient instructions): Pancreatitis (ED) Additional Instructions: Please return to the Emergency Department if symptoms worsen or any other concerns. Recommended clear liquid diet for 1-2 days. Do not drink alcohol. May take ibuprofen or Tylenol for further discomfort. Follow up with GI as discussed. Is patient prescribed a controlled substance at d/c from ED?: No Referrals: Isi Carolina MD [Primary Care Provider] - 1-2 days Katarzyna Bocanegra MD [STAFF PHYSICIAN] - 1-2 days
[2019-11-18 19:25] LABS: Appearance,Urine Cloudy (Clear); Bacteria,Urine Moderate /hpf; Bilirubin,Urine Negative (Negative); Blood,Urine Trace (Negative); Color,Urine Yellow; Glucose,Urine (UA) Negative (Negative); Ketones,Urine Negative (Negative); Leukocyte Esterase,Urine Trace (Negative); Mucus,Urine Rare /hpf; Nitrite,Urine Negative (Negative); PH, Urine 6.5 (5.0-8.0); Protein,Urine Negative (Negative); RBC,Urine 1 /hpf (0-5); Squamous Epithelial Cell,Urine 7 /hpf (0-4); Urobilinogen,Urine <2.0 mg/dL (<2.0); WBC,Urine 2 /hpf (0-5)
[2019-11-18 20:32] LABS: Basophils % (A) 0 %; Eosinophils # (A) 0.1 k/uL (0-0.7); Eosinophils % (A) 2 %; HCT 40.9 % (34.0-46.0); Lymphocytes # (A) 2.4 k/uL (1.0-4.8); Lymphocytes % (A) 33 %; MCH 33.3 pg (25.0-35.0); MCHC 34.3 g/dL (31.0-37.0); MCV 97.3 fL (80.0-100.0); Mean Platelet Volume 7.6; Monocytes # (A) 0.3 k/uL (0-1.0); Monocytes % (A) 4 %; Neutrophils # (A) 4.4 k/uL (1.3-7.7); Neutrophils % (A) 60 %; Platelet Count 278 k/uL (150-450); WBC 7.4 k/uL (3.8-10.6)
[2019-11-18 20:44] LABS: ALT 42 U/L (4-34); AST 46 U/L (14-36); African American GFR (CKD) >90 (>60 ml/min/1.73 sqM); Albumin 4.4 g/dL (3.5-5.0); Alkaline Phosphatase 97 U/L (38-126); Amylase 47 U/L (30-110); Anion Gap 9 mmol/L; Blood Urea Nitrogen 14 mg/dL (7-17); Calcium 10.6 mg/dL (8.4-10.2); Carbon Dioxide 20 mmol/L (22-30); Chloride 107 mmol/L (98-107); Glucose 151 mg/dL (74-99); Non-African American GFR(CKD) 81 (>60 ml/min/1.73 sqM); Potassium 4.5 mmol/L (3.5-5.1); Sodium 136 mmol/L (137-145); Total Bilirubin 0.4 mg/dL (0.2-1.3); Total Protein 7.9 g/dL (6.3-8.2)
[2019-11-18] MEDS ORDERED: MORPHINE SULFATE 4 MG/ML SYRINGE IVP STA (21:25)
[2019-11-18 21:36] VITALS: BP 127/82; PULSE 90
[2019-11-18 21:42] VITALS: TEMP 99.5
== END 2019-11-18 22:07 | disposition home or self-care (01) ==
LOC: EC 18:01
DX: K85.90 Acute pancreatitis without necrosis or infection, unspecified (principal); R00.0 Tachycardia, unspecified; R79.89 Other specified abnormal findings of blood chemistry; R74.8 Abnormal levels of other serum enzymes; J45.909 Unspecified asthma, uncomplicated; E11.9 Type 2 diabetes mellitus without complications; K21.9 Gastro-esophageal reflux disease without esophagitis; G43.909 Migraine, unspecified, not intractable, without status migrainosus; F41.9 Anxiety disorder, unspecified; F32.9 Major depressive disorder, single episode, unspecified; Z79.51 Long term (current) use of inhaled steroids; Z79.84 Long term (current) use of oral hypoglycemic drugs; Z79.899 Other long term (current) drug therapy; Z91.048 Other nonmedicinal substance allergy status; Z88.0 Allergy status to penicillin; Z88.2 Allergy status to sulfonamides; Z88.8 Allergy status to other drugs, medicaments and biological substances; Z91.040 Latex allergy status; Z91.030 Bee allergy status; Z88.5 Allergy status to narcotic agent; Z87.42 Personal history of other diseases of the female genital tract
CPT/HCPCS: 36415; 80053; 82150; 83605; 83690; 85025; 81001; 81025; 96374; 96375 ×2; 96361 ×2; 99284; J2270; J2405; J1885

== ENCOUNTER 2019-11-21 18:37 | Emergency (ER) | payer OTHER ==
[2019-11-21 18:40] VITALS: TEMP 98.8
[2019-11-21] MEDS ORDERED: diphenhydrAMINE 50 MG/ML 1 ML VIAL IVP STA (19:32)
[2019-11-21] MEDS ORDERED: HYDROmorphone 0.5 MG/0.5 ML SYRINGE IVP STA (19:32)
[2019-11-21] MEDS ORDERED: SODIUM CHLORIDE 0.9% 1,000 ML IV STA (19:32)
[2019-11-21] MEDS ORDERED: SODIUM CHLORIDE 0.9% 2,000 ML IV STA (19:32)
[2019-11-21] MEDS ORDERED: METOCLOPRAMIDE 5 MG/ML 2 ML VIAL IVP STA (19:32)
--- NOTE | 2019-11-21 19:50 | ED ---
Abdominal Pain HPI - General Chief Complaint: Abdominal Pain Stated Complaint: abd pain Time Seen by Provider: 11/21/19 19:00 Source: patient, RN notes reviewed Mode of arrival: ambulatory Limitations: no limitations - History of Present Illness Initial Comments: This a 29 year-old female presents emergency Department chief complaint severe abdominal pain. Patient states it's in her mid epigastric region. Patient states it feels like her pancreatitis that she's had in the past. Patient's emergency from 3 days ago for similar complaints symptoms are worsening. She does not nausea vomiting diarrhea constipation no melena hematochezia. No fevers or chills. She states that she's been clear liquid diet and is not helping. Patient states that she's been taken Tylenol Motrin. She denies any alcohol intake denies any chance . - Related Data Home Medications Medication Instructions Recorded Confirmed RX: Omeprazole [PriLOSEC] 40 mg PO HS 07/29/16 10/17/19 RX: EPINEPHrine [Epipen 2-Mike] 0.3 mg IM ONCE PRN 10/16/18 10/17/19 RX: metFORMIN HCL [metFORMIN HCL 750 mg PO W/SUPPER 02/07/19 10/17/19 ER] RX: Hydrocortisone Cream 1 applic TOPICAL BID PRN 05/08/19 10/17/19 [Hydrocortisone 2.5% Cream] RX: Propranolol HCl 20 mg PO BID 05/08/19 10/17/19 RX: SUMAtriptan succinate [Imitrex] 50 mg PO DIRECTED PRN 05/08/19 10/17/19 RX: Topiramate [Topamax] 50 mg PO BID 05/08/19 10/17/19 RX: tiZANidine [Zanaflex] 4 mg PO BID PRN 05/08/19 10/17/19 Albuterol Inhaler [Ventolin Hfa 2 puff INHALATION RT-Q4H PRN 10/17/19 10/17/19 Inhaler] Fenofibrate Nanocrystallized 145 mg PO DAILY 10/17/19 10/17/19 [Fenofibrate] Fish Oil/Dha/Epa [Fish Oil 1,200 1 cap PO DAILY 10/17/19 10/17/19 mg Fish Oil] Ibuprofen [Motrin Ib] 800 mg PO Q8H PRN 10/17/19 10/17/19 QUEtiapine FUMARATE [SEROquel] 400 mg PO HS 10/17/19 10/17/19 RX: Melatonin 5 mg PO HS 10/17/19 10/17/19 Previous Rx's Medication Instructions Recorded Ondansetron Odt [Zofran Odt] 4 mg PO Q8HR PRN #10 tab 07/13/19 Cephalexin [Keflex] 500 mg PO Q8HR 5 Days #15 cap 10/17/19 Cephalexin [Keflex] 500 mg PO Q8HR 5 Days #15 cap 10/18/19 Ondansetron Odt [Zofran Odt] 4 mg PO Q8HR PRN #10 tab 11/21/19 RX: Omeprazole [PriLOSEC] 40 mg PO DAILY #14 cap 11/21/19 Sucralfate [Carafate] 1 gm PO BID #30 tablet 11/21/19 Allergies Allergy/AdvReac Type Severity Reaction Status Date / Time bee pollen Allergy Severe Anaphylaxis Verified 11/21/19 18:40 haloperidol [From Haldol] Allergy Severe QUIT Verified 11/21/19 18:40 BREATHING haloperidol lactate Allergy Severe QUIT Verified 11/21/19 18:40 [From Haldol] BREATHING latex Allergy Severe RASH-THROAT Verified 11/21/19 18:40 CLOSES tramadol Allergy Severe Nausea & Verified 11/21/19 18:40 Vomiting prednisone Allergy THROAT Verified 11/21/19 18:40 SWELLS spider venom Allergy Swelling Verified 11/21/19 18:40 Sulfa (Sulfonamide Allergy THROAT Verified 11/21/19 18:40 Antibiotics) SWELLS promethazine HCl AdvReac Severe Nausea & Verified 11/21/19 18:40 [From Phenergan] Vomiting amoxicillin AdvReac Nausea & Verified 11/21/19 18:40 Vomiting WASP Allergy Severe Swelling Uncoded 11/21/19 18:40 ANTS Allergy Mild Anaphylaxis Uncoded 11/21/19 18:40 Review of Systems ROS Statement: Those systems with pertinent positive or pertinent negative responses have been documented in the HPI. ROS Other: All systems not noted in ROS Statement are negative. Past Medical History Past Medical History: Asthma, Diabetes Mellitus, GERD/Reflux Additional Past Medical History / Comment(s): migraines, degenerative disk disease, endometriosis, lupus, pancreatitis History of Any Multi-Drug Resistant Organisms: None Reported Past Surgical History: Orthopedic Surgery Additional Past Surgical History / Comment(s): laparoscopc surgery for endometriosis, cyst removed from left foot, EGD Past Anesthesia/Blood Transfusion Reactions: Previous Problems w/ Anesthesia Additional Past Anesthesia/Blood Transfusion Reaction / Comment(s): hard to wake up for 48-72 hours after laparoscopic surgery-was in hosp. for 3 days Past Psychological History: Anxiety, Depression, PTSD Smoking Status: Never smoker Past Alcohol Use History: None Reported Past Drug Use History: None Reported - Past Family History Mother Family Medical History: No Reported History Additional Family Medical History / Comment(s): hx migraines Father Family Medical History: Coronary Artery Disease (CAD), Hypertension Additional Family Medical History / Comment(s): ddd, alcoholism & drug use General Exam Limitations: no limitations General appearance: alert, in no apparent distress Head exam: Present: atraumatic, normocephalic, normal inspection Eye exam: Present: normal appearance, PERRL, EOMI. Absent: scleral icterus, conjunctival injection, periorbital swelling ENT exam: Present: normal exam, normal oropharynx, mucous membranes moist Neck exam: Present: normal inspection, full ROM. Absent: tenderness, meningismus, lymphadenopathy Respiratory exam: Present: normal lung sounds bilaterally. Absent: respiratory distress, wheezes, rales, rhonchi, stridor Cardiovascular Exam: Present: normal rhythm, tachycardia, normal heart sounds. Absent: systolic murmur, diastolic murmur, rubs, gallop, clicks GI/Abdominal exam: Present: soft, tenderness (Moderate to severe tenderness in mid epigastric region), normal bowel sounds. Absent: distended, guarding, rebound, rigid Back exam: Absent: CVA tenderness (R), CVA tenderness (L) Neurological exam: Present: alert, oriented X3 Skin exam: Present: warm, dry, intact, normal color. Absent: rash Course Vital Signs 11/21/19 11/21/19 11/21/19 18:38 19:22 19:54 Temperature 98.8 F Pulse Rate 151 H 134 H 126 H Respiratory 16 20 Rate Blood Pressure 115/83 145/102 O2 Sat by Pulse 98 97 Oximetry 11/21/19 21:00 Temperature Pulse Rate 110 H Respiratory 18 Rate Blood Pressure 120/74 O2 Sat by Pulse 97 Oximetry Medical Decision Making - Medical Decision Making Patient's lab, EKG, CT were reviewed. Patient has some fatty liver disease no other significant findings. There is some concern for possible peptic ulcer disease. Patient will be started on antacids and have close follow-up with GI. Patient did have some mild tachycardia but seems related to dehydration and pain. Patient feels comfortable with discharge and close follow-up. - Lab Data Result diagrams: 11/21/19 19:46 11/21/19 19:46 Lab Results 11/21/19 11/21/19 11/21/19 Range/Units 19:46 19:46 19:52 WBC 7.8 (3.8-10.6) k/uL RBC 4.31 (3.80-5.40) m/uL Hgb 13.8 (11.4-16.0) gm/dL Hct 41.2 (34.0-46.0) % MCV 95.7 (80.0-100.0) fL MCH 32.0 (25.0-35.0) pg MCHC 33.4 (31.0-37.0) g/dL RDW 13.1 (11.5-15.5) % Plt Count 276 (150-450) k/uL Neutrophils % 50 % Lymphocytes % 42 % Monocytes % 3 % Eosinophils % 1 % Basophils % 1 % Neutrophils # 4.0 (1.3-7.7) k/uL Lymphocytes # 3.3 (1.0-4.8) k/uL Monocytes # 0.3 (0-1.0) k/uL Eosinophils # 0.1 (0-0.7) k/uL Basophils # 0.1 (0-0.2) k/uL Sodium 136 L (137-145) mmol/L Potassium 4.6 (3.5-5.1) mmol/L Chloride 106 (98-107) mmol/L Carbon Dioxide 17 L (22-30) mmol/L Anion Gap 13 mmol/L BUN 15 (7-17) mg/dL Creatinine 0.82 (0.52-1.04) mg/dL Est GFR (CKD-EPI)AfAm >90 (>60 ml/min/1.73 sqM) Est GFR (CKD-EPI)NonAf >90 (>60 ml/min/1.73 sqM) Glucose 111 H (74-99) mg/dL Plasma Lactic Acid Aurelio (0.7-2.0) mmol/L Calcium 10.7 H (8.4-10.2) mg/dL Total Bilirubin 0.8 (0.2-1.3) mg/dL AST 42 H (14-36) U/L ALT 33 (4-34) U/L Alkaline Phosphatase 60 (38-126) U/L Total Protein 8.2 (6.3-8.2) g/dL Albumin 4.7 (3.5-5.0) g/dL Amylase 43 (30-110) U/L Lipase 188 (23-300) U/L Urine Color Yellow Urine Appearance Clear (Clear) Urine pH 6.5 (5.0-8.0) Ur Specific Butler 1.019 (1.001-1.035) Urine Protein Negative (Negative) Urine Glucose (UA) Negative (Negative) Urine Ketones Negative (Negative) Urine Blood Negative (Negative) Urine Nitrite Negative (Negative) Urine Bilirubin Negative (Negative) Urine Urobilinogen <2.0 (<2.0) mg/dL Ur Leukocyte Esterase Trace H (Negative) Urine RBC <1 (0-5) /hpf Urine WBC 6 H (0-5) /hpf Ur Squamous Epith Cells 6 H (0-4) /hpf Amorphous Sediment Rare H (None) /hpf Urine Bacteria Many H (None) /hpf Urine Mucus Rare H (None) /hpf Urine HCG, Qual (Not Detectd) 11/21/19 11/21/19 Range/Units 19:52 19:52 WBC (3.8-10.6) k/uL RBC (3.80-5.40) m/uL Hgb (11.4-16.0) gm/dL Hct (34.0-46.0) % MCV (80.0-100.0) fL MCH (25.0-35.0) pg MCHC (31.0-37.0) g/dL RDW (11.5-15.5) % Plt Count (150-450) k/uL Neutrophils % % Lymphocytes % % Monocytes % % Eosinophils % % Basophils % % Neutrophils # (1.3-7.7) k/uL Lymphocytes # (1.0-4.8) k/uL Monocytes # (0-1.0) k/uL Eosinophils # (0-0.7) k/uL Basophils # (0-0.2) k/uL Sodium (137-145) mmol/L Potassium (3.5-5.1) mmol/L Chloride (98-107) mmol/L Carbon Dioxide (22-30) mmol/L Anion Gap mmol/L BUN (7-17) mg/dL Creatinine (0.52-1.04) mg/dL Est GFR (CKD-EPI)AfAm (>60 ml/min/1.73 sqM) Est GFR (CKD-EPI)NonAf (>60 ml/min/1.73 sqM) Glucose (74-99) mg/dL Plasma Lactic Acid Aurelio 1.7 (0.7-2.0) mmol/L Calcium (8.4-10.2) mg/dL Total Bilirubin (0.2-1.3) mg/dL AST (14-36) U/L ALT (4-34) U/L Alkaline Phosphatase (38-126) U/L Total Protein (6.3-8.2) g/dL Albumin (3.5-5.0) g/dL Amylase (30-110) U/L Lipase (23-300) U/L Urine Color Urine Appearance (Clear) Urine pH (5.0-8.0) Ur Specific Butler (1.001-1.035) Urine Protein (Negative) Urine Glucose (UA) (Negative) Urine Ketones (Negative) Urine Blood (Negative) Urine Nitrite (Negative) Urine Bilirubin (Negative) Urine Urobilinogen (<2.0) mg/dL Ur Leukocyte Esterase (Negative) Urine RBC (0-5) /hpf Urine WBC (0-5) /hpf Ur Squamous Epith Cells (0-4) /hpf Amorphous Sediment (None) /hpf Urine Bacteria (None) /hpf Urine Mucus (None) /hpf Urine HCG, Qual Not Detected (Not Detectd) - EKG Data -: EKG Interpreted by Me EKG Comments: EKG performed at 19:36 sinus tachycardia with rightward axis with a rate of 126 OH 132 QRS 72 QT/QTC 314/454 Disposition Clinical Impression: Abdominal pain Disposition: HOME SELF-CARE Condition: Stable Instructions (If sedation given, give patient instructions): Abdominal Pain (ED) Additional Instructions: Please return to the Emergency Department if symptoms worsen or any other concerns. Prescriptions: Sucralfate [Carafate] 1 gm PO BID #30 tablet RX: Omeprazole [PriLOSEC] 40 mg PO DAILY #14 cap Ondansetron Odt [Zofran Odt] 4 mg PO Q8HR PRN #10 tab PRN Reason: Nausea Is patient prescribed a controlled substance at d/c from ED?: No Referrals: Isi Caroilna MD [Primary Care Provider] - 1-2 days Time of Disposition: 21:25
[2019-11-21 19:51] LABS: Basophils # (A) 0.1 k/uL (0-0.2); Basophils % (A) 1 %; Eosinophils # (A) 0.1 k/uL (0-0.7); Eosinophils % (A) 1 %; HCT 41.2 % (34.0-46.0); HGB 13.8 gm/dL (11.4-16.0); Lymphocytes # (A) 3.3 k/uL (1.0-4.8); Lymphocytes % (A) 42 %; MCHC 33.4 g/dL (31.0-37.0); MCV 95.7 fL (80.0-100.0); Mean Platelet Volume 8.2; Monocytes # (A) 0.3 k/uL (0-1.0); Monocytes % (A) 3 %; Neutrophils % (A) 50 %; Platelet Count 276 k/uL (150-450); RBC 4.31 m/uL (3.80-5.40); RDW 13.1 % (11.5-15.5); WBC 7.8 k/uL (3.8-10.6)
[2019-11-21 20:10] LABS: ALT 33 U/L (4-34); AST 42 U/L (14-36); African American GFR (CKD) >90 (>60 ml/min/1.73 sqM); Albumin 4.7 g/dL (3.5-5.0); Alkaline Phosphatase 60 U/L (38-126); Amylase 43 U/L (30-110); Anion Gap 13 mmol/L; Blood Urea Nitrogen 15 mg/dL (7-17); Calcium 10.7 mg/dL (8.4-10.2); Carbon Dioxide 17 mmol/L (22-30); Chloride 106 mmol/L (98-107); Glucose 111 mg/dL (74-99); Non-African American GFR(CKD) >90 (>60 ml/min/1.73 sqM); Sodium 136 mmol/L (137-145); Total Bilirubin 0.8 mg/dL (0.2-1.3); Total Protein 8.2 g/dL (6.3-8.2)
[2019-11-21 20:12] LABS: Potassium 4.6 mmol/L (3.5-5.1)
[2019-11-21 20:17] LABS: Amorphous Sediment,Urine Rare /hpf; Appearance,Urine Clear (Clear); Bacteria,Urine Many /hpf; Bilirubin,Urine Negative (Negative); Blood,Urine Negative (Negative); Color,Urine Yellow; Glucose,Urine (UA) Negative (Negative); Ketones,Urine Negative (Negative); Leukocyte Esterase,Urine Trace (Negative); Mucus,Urine Rare /hpf; Nitrite,Urine Negative (Negative); PH, Urine 6.5 (5.0-8.0); Protein,Urine Negative (Negative); RBC,Urine <1 /hpf (0-5); Specific Gravity,Urine 1.019 (1.001-1.035); Squamous Epithelial Cell,Urine 6 /hpf (0-4); Urobilinogen,Urine <2.0 mg/dL (<2.0); WBC,Urine 6 /hpf (0-5)
[2019-11-21] MEDS ORDERED: HYDROmorphone 1 MG/ML 1 ML SYRINGE IVP STA (20:46)
[2019-11-21 21:03] VITALS: BP 120/74; PULSE 110; RESP 18
--- NOTE | 2019-11-21 21:14 | CT ---
EXAMINATION TYPE: CT abdomen pelvis w con DATE OF EXAM: 11/21/2019 COMPARISON: CT 05/08/2019 HISTORY: Abdomen pain and vomiting. CT DLP: 1575 mGycm Automated exposure control for dose reduction was used. TECHNIQUE: Helical acquisition of images from the lung bases through the pelvis have been completed. CONTRAST: Performed without Oral Contrast and with IV Contrast, patient injected with 100 mL of Isovue 300. FINDINGS: LUNG BASES: No significant abnormality is appreciated. AORTA: No significant abnormality is appreciated. LIVER/GB: The liver is enlarged and shows low-attenuation, gallbladder is normal. PANCREAS: No significant abnormality is seen. SPLEEN: Spleen is slightly enlarged. ADRENALS: No significant abnormality is seen. KIDNEYS: No significant abnormality is seen. REPRODUCTIVE ORGANS: No significant abnormality is seen BOWEL: No significant abnormality is seen. The appendix is normal. FREE AIR: No Free Air visible. ASCITES: None visible. PELVIC ADENOPATHY: None visualized. RETROPERITONEAL ADENOPATHY: No Retroperitoneal Adenopathy visible. URINARY BLADDER: No significant abnormality is seen. OSSEOUS STRUCTURES: No significant abnormality is seen. IMPRESSION: HEPATOSPLENOMEGALY, CORRELATE FOR HEPATIC STEATOSIS
[2019-11-21] MEDS ORDERED: ACET/COD 300 MG/30 MG STARTER PACK 6 TAB BTL PO STA (21:26)
== END 2019-11-21 21:42 | disposition home or self-care (01) ==
LOC: EC 18:37
DX: R10.9 Unspecified abdominal pain (principal); K76.0 Fatty (change of) liver, not elsewhere classified; R00.0 Tachycardia, unspecified; J45.909 Unspecified asthma, uncomplicated; E11.9 Type 2 diabetes mellitus without complications; K21.9 Gastro-esophageal reflux disease without esophagitis; Z79.84 Long term (current) use of oral hypoglycemic drugs; Z79.899 Other long term (current) drug therapy; Z91.030 Bee allergy status; Z88.5 Allergy status to narcotic agent; Z91.040 Latex allergy status; Z88.2 Allergy status to sulfonamides; Z88.8 Allergy status to other drugs, medicaments and biological substances; Z91.038 Other insect allergy status; Z88.0 Allergy status to penicillin
CPT/HCPCS: 36415; 93005; 80053; 82150; 83605; 83690; 85025; 81001; 81025; 74177; 99284; 96374; 96375 ×2; 96376; 96361 ×2; J1200; J2765; J1170 ×2; Q9967

== ENCOUNTER → 2019-11-29 | Outpatient (CLI) | payer OTHER ==
--- NOTE | 2019-11-29 23:33 | MR ---
EXAMINATION TYPE: MR foot LT wo con DATE OF EXAM: 11/29/2019 COMPARISON: None HISTORY: Left foot Soft tissue disorder, Marker on area of interest-top of foot at the start of the t oes Multiplanar multiecho imaging of the left foot was performed without contrast. There is a marker on t he dorsum of the foot in the area of concern at the distal metatarsals between the first and second m etatarsal. There is some mild soft tissue swelling of the forefoot. The metatarsals are intact. There is no evid ence for fracture. I see no bony destructive process. The toes appear intact. The tarsal bones appear intact. The medial and lateral flexor tendons of the foot appear intact. The Achilles tendon is inta ct. Plantar fascia appears normal. I see no evidence of bone edema. There is no evidence of a soft ti ssue mass. IMPRESSION: No evidence of a soft tissue mass. Minimal soft tissue swelling of the forefoot around the MP joints. No fracture.
== END | disposition home or self-care (01) ==
LOC: RADMRIMAIN 11:50
PROVIDERS: ATTEND Podiatrist Foot & Ankle Surgery
DX: M79.89 Other specified soft tissue disorders (principal)

== ENCOUNTER 2019-12-23 23:00 | Emergency (ER) | payer OTHER ==
[2019-12-23 23:09] VITALS: TEMP 98.8
[2019-12-23] MEDS ORDERED: KETOROLAC 15 MG/ML 1 ML VIAL IVP STA (23:18)
[2019-12-23] MEDS ORDERED: HYDROmorphone 0.5 MG/0.5 ML SYRINGE IVP STA (23:18)
[2019-12-23] MEDS ORDERED: ONDANSETRON 4 MG/2 ML VIAL IVP STA (23:18)
--- NOTE | 2019-12-23 23:22 | ED ---
Headache HPI - General Chief Complaint: Headache Stated Complaint: Headache, Vomiting Time Seen by Provider: 12/23/19 23:12 Mode of arrival: ambulatory Limitations: no limitations - History of Present Illness Initial Comments: 29-year-old female presented for headache vomiting. Patient states she struggles with migraines chronically vertically has vomiting associated with these migraines. Patient states that she's been unable to control it for the past 3 days she states she woke up this morning and her migraine began again. Pt denies speech, visual changes, Tammi weakness, sensation deficits, fevers, URI symptoms, neck pain denies this being the worst headache of her life. Denies sudden onset. Patient states feels similar in characteristic to previous migraines. Patient denies stating she has a female partner, denies additional complaints. Patient appears well nontoxic in no acute distress. Patient is agreeable to care plan and discharge. - Related Data Home Medications Medication Instructions Recorded Confirmed Omeprazole [PriLOSEC] 40 mg PO HS 07/29/16 10/17/19 EPINEPHrine [Epipen 2-Mike] 0.3 mg IM ONCE PRN 10/16/18 10/17/19 metFORMIN HCL [metFORMIN HCL ER] 750 mg PO W/SUPPER 02/07/19 10/17/19 Hydrocortisone Cream 1 applic TOPICAL BID PRN 05/08/19 10/17/19 [Hydrocortisone 2.5% Cream] Propranolol HCl 20 mg PO BID 05/08/19 10/17/19 SUMAtriptan succinate [Imitrex] 50 mg PO DIRECTED PRN 05/08/19 10/17/19 Topiramate [Topamax] 50 mg PO BID 05/08/19 10/17/19 tiZANidine [Zanaflex] 4 mg PO BID PRN 05/08/19 10/17/19 Albuterol Inhaler [Ventolin Hfa 2 puff INHALATION RT-Q4H PRN 10/17/19 10/17/19 Inhaler] Fenofibrate Nanocrystallized 145 mg PO DAILY 10/17/19 10/17/19 [Fenofibrate] Fish Oil/Dha/Epa [Fish Oil 1,200 1 cap PO DAILY 10/17/19 10/17/19 mg Fish Oil] Ibuprofen [Motrin Ib] 800 mg PO Q8H PRN 10/17/19 10/17/19 Melatonin 5 mg PO HS 10/17/19 10/17/19 QUEtiapine FUMARATE [SEROquel] 400 mg PO HS 10/17/19 10/17/19 Previous Rx's Medication Instructions Recorded Ondansetron Odt [Zofran Odt] 4 mg PO Q8HR PRN #10 tab 07/13/19 Cephalexin [Keflex] 500 mg PO Q8HR 5 Days #15 cap 10/17/19 Cephalexin [Keflex] 500 mg PO Q8HR 5 Days #15 cap 10/18/19 Omeprazole [PriLOSEC] 40 mg PO DAILY #14 cap 11/21/19 Ondansetron Odt [Zofran Odt] 4 mg PO Q8HR PRN #10 tab 11/21/19 Sucralfate [Carafate] 1 gm PO BID #30 tablet 11/21/19 Allergies Allergy/AdvReac Type Severity Reaction Status Date / Time bee pollen Allergy Severe Anaphylaxis Verified 12/10/19 00:54 haloperidol [From Haldol] Allergy Severe QUIT Verified 12/10/19 00:54 BREATHING haloperidol lactate Allergy Severe QUIT Verified 12/10/19 00:54 [From Haldol] BREATHING latex Allergy Severe RASH-THROAT Verified 12/10/19 00:54 CLOSES tramadol Allergy Severe Nausea & Verified 12/10/19 00:54 Vomiting prednisone Allergy THROAT Verified 12/10/19 00:54 SWELLS spider venom Allergy Swelling Verified 12/10/19 00:54 Sulfa (Sulfonamide Allergy THROAT Verified 12/10/19 00:54 Antibiotics) SWELLS promethazine HCl AdvReac Severe Nausea & Verified 12/10/19 00:54 [From Phenergan] Vomiting amoxicillin AdvReac Nausea & Verified 12/10/19 00:54 Vomiting WASP Allergy Severe Swelling Uncoded 12/10/19 00:54 ANTS Allergy Mild Anaphylaxis Uncoded 12/10/19 00:54 Review of Systems ROS Statement: Those systems with pertinent positive or pertinent negative responses have been documented in the HPI. ROS Other: All systems not noted in ROS Statement are negative. Past Medical History Past Medical History: Asthma, Diabetes Mellitus, GERD/Reflux Additional Past Medical History / Comment(s): migraines, degenerative disk disease, endometriosis, lupus, pancreatitis History of Any Multi-Drug Resistant Organisms: None Reported Past Surgical History: Orthopedic Surgery Additional Past Surgical History / Comment(s): laparoscopc surgery for endometriosis, cyst removed from left foot, EGD Past Anesthesia/Blood Transfusion Reactions: Previous Problems w/ Anesthesia Additional Past Anesthesia/Blood Transfusion Reaction / Comment(s): hard to wake up for 48-72 hours after laparoscopic surgery-was in hosp. for 3 days Past Psychological History: Anxiety, Depression, PTSD Smoking Status: Never smoker Past Alcohol Use History: None Reported Past Drug Use History: None Reported - Past Family History Mother Family Medical History: No Reported History Additional Family Medical History / Comment(s): hx migraines Father Family Medical History: Coronary Artery Disease (CAD), Hypertension Additional Family Medical History / Comment(s): ddd, alcoholism & drug use General Exam Limitations: no limitations Course Vital Signs 12/23/19 12/24/19 23:04 01:23 Temperature 98.8 F Pulse Rate 114 H 104 H Respiratory 20 16 Rate Blood Pressure 138/97 122/82 O2 Sat by Pulse 96 95 Oximetry - Reevaluation(s) Reevaluation #1: 12/24/19 00:58 sleeping comfortably on reevaluation Medical Decision Making - Medical Decision Making 29 yo female with history of chronic migraines. No focal neurological deficits. Patient appears well nontoxic. no vomiting in ER. Patient pain improved, sleeping on reevaluation. Patient will be discharged with PCP f/uSuzie mesa agreeable to care plan. Disposition Clinical Impression: Migraine Disposition: HOME SELF-CARE Condition: Good Instructions (If sedation given, give patient instructions): Acute Headache (ED) Additional Instructions: Please use medication as discussed. Please follow-up with family doctor in the next 2 days.. Please return to emergency room if the symptoms increase or worsen or for any other concerns. Is patient prescribed a controlled substance at d/c from ED?: No Referrals: Isi Carolina MD [Primary Care Provider] - 1-2 days Time of Disposition: 01:04
[2019-12-23] MEDS ORDERED: ONDANSETRON ODT 4 MG TAB PO STA (23:50)
[2019-12-24] MEDS ORDERED: HYDROmorphone 0.5 MG/0.5 ML SYRINGE IM STA (00:58)
[2019-12-24 01:23] VITALS: BP 122/82; PULSE 104; RESP 16
== END 2019-12-24 01:20 | disposition home or self-care (01) ==
LOC: EC 23:00
DX: G43.909 Migraine, unspecified, not intractable, without status migrainosus (principal); K21.9 Gastro-esophageal reflux disease without esophagitis; J45.909 Unspecified asthma, uncomplicated; F41.9 Anxiety disorder, unspecified; E11.9 Type 2 diabetes mellitus without complications; F43.10 Post-traumatic stress disorder, unspecified; F32.9 Major depressive disorder, single episode, unspecified; Z79.899 Other long term (current) drug therapy; Z79.84 Long term (current) use of oral hypoglycemic drugs; Z91.030 Bee allergy status; Z91.040 Latex allergy status; Z88.8 Allergy status to other drugs, medicaments and biological substances; Z88.5 Allergy status to narcotic agent; Z88.2 Allergy status to sulfonamides; Z88.0 Allergy status to penicillin; Z91.038 Other insect allergy status
CPT/HCPCS: 99283; 96374; 96375; 96372; J1885; J1170 ×2

== ENCOUNTER 2020-01-17 14:50 | Emergency (ER) | payer OTHER ==
[2020-01-17 14:56] VITALS: TEMP 97.9
--- NOTE | 2020-01-17 15:08 | ED ---
Abdominal Pain HPI - General Chief Complaint: Abdominal Pain Stated Complaint: abd pain Time Seen by Provider: 01/17/20 15:00 Source: patient Mode of arrival: ambulatory Limitations: no limitations - History of Present Illness Initial Comments: Patient is a 29-year-old female presenting to emergency Department with chief complaint of abdominal pain. Patient does have history of GERD which she uses omeprazole for on daily basis. Patient states for the past. She has been having pain in the epigastric region that comes and goes but since last night the pain has been unbearable. Patient states the pain sometimes is postprandial. She denies any radiation of the pain and states it feels like pressure. Does report nausea over the last week with multiple episodes of nonbilious and nonbloody vomiting. Denies any diarrhea. Denies any urinary or vaginal symptoms. Denies any back pain chest or shortness of breath. Denies any night sweats or chills. Denies surgical abdominal history. She denies any alcohol use. States she only drinks about 2 cans daily. - Related Data Home Medications Medication Instructions Recorded Confirmed Omeprazole [PriLOSEC] 40 mg PO HS 07/29/16 10/17/19 EPINEPHrine [Epipen 2-Mike] 0.3 mg IM ONCE PRN 10/16/18 10/17/19 metFORMIN HCL [metFORMIN HCL ER] 750 mg PO W/SUPPER 02/07/19 10/17/19 Hydrocortisone Cream 1 applic TOPICAL BID PRN 05/08/19 10/17/19 [Hydrocortisone 2.5% Cream] Propranolol HCl 20 mg PO BID 05/08/19 10/17/19 SUMAtriptan succinate [Imitrex] 50 mg PO DIRECTED PRN 05/08/19 10/17/19 Topiramate [Topamax] 50 mg PO BID 05/08/19 10/17/19 tiZANidine [Zanaflex] 4 mg PO BID PRN 05/08/19 10/17/19 Albuterol Inhaler [Ventolin Hfa 2 puff INHALATION RT-Q4H PRN 10/17/19 10/17/19 Inhaler] Fenofibrate Nanocrystallized 145 mg PO DAILY 10/17/19 10/17/19 [Fenofibrate] Fish Oil/Dha/Epa [Fish Oil 1,200 1 cap PO DAILY 10/17/19 10/17/19 mg Fish Oil] Ibuprofen [Motrin Ib] 800 mg PO Q8H PRN 10/17/19 10/17/19 Melatonin 5 mg PO HS 10/17/19 10/17/19 QUEtiapine FUMARATE [SEROquel] 400 mg PO HS 10/17/19 10/17/19 Previous Rx's Medication Instructions Recorded Ondansetron Odt [Zofran Odt] 4 mg PO Q8HR PRN #10 tab 07/13/19 Cephalexin [Keflex] 500 mg PO Q8HR 5 Days #15 cap 10/17/19 Cephalexin [Keflex] 500 mg PO Q8HR 5 Days #15 cap 10/18/19 Omeprazole [PriLOSEC] 40 mg PO DAILY #14 cap 11/21/19 Ondansetron Odt [Zofran Odt] 4 mg PO Q8HR PRN #10 tab 11/21/19 Sucralfate [Carafate] 1 gm PO BID #30 tablet 11/21/19 Allergies Allergy/AdvReac Type Severity Reaction Status Date / Time bee pollen Allergy Severe Anaphylaxis Verified 01/17/20 14:56 haloperidol [From Haldol] Allergy Severe QUIT Verified 01/17/20 14:56 BREATHING haloperidol lactate Allergy Severe QUIT Verified 01/17/20 14:56 [From Haldol] BREATHING latex Allergy Severe RASH-THROAT Verified 01/17/20 14:56 CLOSES tramadol Allergy Severe Nausea & Verified 01/17/20 14:56 Vomiting prednisone Allergy THROAT Verified 01/17/20 14:56 SWELLS spider venom Allergy Swelling Verified 01/17/20 14:56 Sulfa (Sulfonamide Allergy THROAT Verified 01/17/20 14:56 Antibiotics) SWELLS promethazine HCl AdvReac Severe Nausea & Verified 01/17/20 14:56 [From Phenergan] Vomiting amoxicillin AdvReac Nausea & Verified 01/17/20 14:56 Vomiting WASP Allergy Severe Swelling Uncoded 01/17/20 14:56 ANTS Allergy Mild Anaphylaxis Uncoded 01/17/20 14:56 Review of Systems ROS Statement: Those systems with pertinent positive or pertinent negative responses have been documented in the HPI. ROS Other: All systems not noted in ROS Statement are negative. Past Medical History Past Medical History: Asthma, Diabetes Mellitus, GERD/Reflux Additional Past Medical History / Comment(s): migraines, degenerative disk dise ase, endometriosis, lupus, pancreatitis History of Any Multi-Drug Resistant Organisms: None Reported Past Surgical History: Orthopedic Surgery Additional Past Surgical History / Comment(s): laparoscopc surgery for endometriosis, cyst removed from left foot, EGD Past Anesthesia/Blood Transfusion Reactions: Previous Problems w/ Anesthesia Additional Past Anesthesia/Blood Transfusion Reaction / Comment(s): hard to wake up for 48-72 hours after laparoscopic surgery-was in hosp. for 3 days Past Psychological History: Anxiety, Depression, PTSD Smoking Status: Never smoker Past Alcohol Use History: None Reported Past Drug Use History: None Reported - Past Family History Mother Family Medical History: No Reported History Additional Family Medical History / Comment(s): hx migraines Father Family Medical History: Coronary Artery Disease (CAD), Hypertension Additional Family Medical History / Comment(s): ddd, alcoholism & drug use General Exam Limitations: no limitations General appearance: alert, in no apparent distress, obese Head exam: Present: atraumatic, normocephalic, normal inspection Eye exam: Present: normal appearance, PERRL, EOMI Pupils: Present: normal accommodation ENT exam: Present: normal exam, normal oropharynx, mucous membranes moist, TM's normal bilaterally, normal external ear exam Neck exam: Present: normal inspection, full ROM. Absent: tenderness Respiratory exam: Present: normal lung sounds bilaterally. Absent: respiratory distress, wheezes, rales Cardiovascular Exam: Present: regular rate, normal rhythm, normal heart sounds GI/Abdominal exam: Present: soft, tenderness (Left upper quadrant, epigastric and right upper quadrant.). Absent: distended, guarding, rebound, rigid Extremities exam: Present: normal inspection, full ROM, normal capillary refill, other (+2 ulnar and radial pulses bilaterally.). Absent: tenderness Back exam: Present: normal inspection, full ROM. Absent: tenderness, CVA tenderness (R), CVA tenderness (L) Neurological exam: Present: alert, oriented X3, normal gait Psychiatric exam: Present: normal affect, normal mood Skin exam: Present: warm, dry, intact, normal color Course Vital Signs 01/17/20 01/17/20 01/17/20 14:54 15:45 17:28 Temperature 97.9 F Pulse Rate 137 H 109 H 103 H Respiratory 20 18 97 H Rate Blood Pressure 95/69 118/89 112/73 O2 Sat by Pulse 99 98 97 Oximetry Medical Decision Making - Medical Decision Making Patient is a 29-year-old female presenting to the emergency department with a chief complaint of abdominal pain. She does have extensive history of GERD that she take a PPI daily for it. She does have some epigastric to left upper quadrant abdominal pain. Patient was given IV fluids, antiemetics, analgesia, Protonix and a GI cocktail. CBC is unremarkable. CMP reveals slight elevation in liver enzymes. UA is unremarkable. Patient is not . Patient is well-known to emergency department for her recurrent visits for same chief complaint. On reevaluation, her symptoms have improved. She said to follow-up with her GI specialist. Strict return parameters were thoroughly discussed the patient is understanding and agreeable. Case discussed with physician. - Lab Data Result diagrams: 01/17/20 15:15 01/17/20 15:15 Lab Results 01/17/20 01/17/20 01/17/20 Range/Units 15:15 15:15 15:19 WBC 6.5 (3.8-10.6) k/uL RBC 4.11 (3.80-5.40) m/uL Hgb 14.1 (11.4-16.0) gm/dL Hct 39.4 (34.0-46.0) % MCV 95.8 (80.0-100.0) fL MCH 34.3 (25.0-35.0) pg MCHC 35.8 (31.0-37.0) g/dL RDW 12.3 (11.5-15.5) % Plt Count 196 (150-450) k/uL Neutrophils % 47 % Lymphocytes % 45 % Monocytes % 4 % Eosinophils % 2 % Basophils % 1 % Neutrophils # 3.1 (1.3-7.7) k/uL Lymphocytes # 2.9 (1.0-4.8) k/uL Monocytes # 0.3 (0-1.0) k/uL Eosinophils # 0.1 (0-0.7) k/uL Basophils # 0.1 (0-0.2) k/uL Sodium 135 L (137-145) mmol/L Potassium 4.3 (3.5-5.1) mmol/L Chloride 103 (98-107) mmol/L Carbon Dioxide 18 L (22-30) mmol/L Anion Gap 14 mmol/L BUN 9 (7-17) mg/dL Creatinine 0.64 (0.52-1.04) mg/dL Est GFR (CKD-EPI)AfAm >90 (>60 ml/min/1.73 sqM) Est GFR (CKD-EPI)NonAf >90 (>60 ml/min/1.73 sqM) Glucose 129 H (74-99) mg/dL Calcium 10.2 (8.4-10.2) mg/dL Total Bilirubin 0.6 (0.2-1.3) mg/dL AST 54 H (14-36) U/L ALT 40 H (4-34) U/L Alkaline Phosphatase 78 (38-126) U/L Total Protein 8.3 H (6.3-8.2) g/dL Albumin 4.1 (3.5-5.0) g/dL Lipase 105 (23-300) U/L Urine Color Yellow Urine Appearance Clear (Clear) Urine pH 5.5 (5.0-8.0) Ur Specific [place] 1.012 (1.001-1.035) Urine Protein Negative (Negative) Urine Glucose (UA) Negative (Negative) Urine Ketones Negative (Negative) Urine Blood Negative (Negative) Urine Nitrite Negative (Negative) Urine Bilirubin Negative (Negative) Urine Urobilinogen <2.0 (<2.0) mg/dL Ur Leukocyte Esterase Trace H (Negative) Urine RBC 1 (0-5) /hpf Urine WBC 3 (0-5) /hpf Ur Squamous Epith Cells 4 (0-4) /hpf Urine Bacteria Moderate H (None) /hpf Urine Mucus Rare H (None) /hpf Urine HCG, Qual (Not Detectd) 01/17/20 Range/Units 15:19 WBC (3.8-10.6) k/uL RBC (3.80-5.40) m/uL Hgb (11.4-16.0) gm/dL Hct (34.0-46.0) % MCV (80.0-100.0) fL MCH (25.0-35.0) pg MCHC (31.0-37.0) g/dL RDW (11.5-15.5) % Plt Count (150-450) k/uL Neutrophils % % Lymphocytes % % Monocytes % % Eosinophils % % Basophils % % Neutrophils # (1.3-7.7) k/uL Lymphocytes # (1.0-4.8) k/uL Monocytes # (0-1.0) k/uL Eosinophils # (0-0.7) k/uL Basophils # (0-0.2) k/uL Sodium (137-145) mmol/L Potassium (3.5-5.1) mmol/L Chloride (98-107) mmol/L Carbon Dioxide (22-30) mmol/L Anion Gap mmol/L BUN (7-17) mg/dL Creatinine (0.52-1.04) mg/dL Est GFR (CKD-EPI)AfAm (>60 ml/min/1.73 sqM) Est GFR (CKD-EPI)NonAf (>60 ml/min/1.73 sqM) Glucose (74-99) mg/dL Calcium (8.4-10.2) mg/dL Total Bilirubin (0.2-1.3) mg/dL AST (14-36) U/L ALT (4-34) U/L Alkaline Phosphatase (38-126) U/L Total Protein (6.3-8.2) g/dL Albumin (3.5-5.0) g/dL Lipase (23-300) U/L Urine Color Urine Appearance (Clear) Urine pH (5.0-8.0) Ur Specific [place] (1.001-1.035) Urine Protein (Negative) Urine Glucose (UA) (Negative) Urine Ketones (Negative) Urine Blood (Negative) Urine Nitrite (Negative) Urine Bilirubin (Negative) Urine Urobilinogen (<2.0) mg/dL Ur Leukocyte Esterase (Negative) Urine RBC (0-5) /hpf Urine WBC (0-5) /hpf Ur Squamous Epith Cells (0-4) /hpf Urine Bacteria (None) /hpf Urine Mucus (None) /hpf Urine HCG, Qual Not Detected (Not Detectd) Disposition Clinical Impression: Abdominal pain Disposition: HOME SELF-CARE Condition: Stable Instructions (If sedation given, give patient instructions): Abdominal Pain (ED) Additional Instructions: Follow-up with her GI specialist. Return to emergency department if symptoms worsen. Stop drinking coffee, alcohol or soda. Is patient prescribed a controlled substance at d/c from ED?: No Referrals: Isi Carolina MD [Primary Care Provider] - 1-2 days Time of Disposition: 16:50
[2020-01-17] MEDS ORDERED: SODIUM CHLORIDE 0.9% 1,000 ML IV STA (15:13)
[2020-01-17] MEDS ORDERED: PANTOPRAZOLE 40 MG/10 ML VIAL IVP STA (15:13)
[2020-01-17] MEDS ORDERED: ONDANSETRON 4 MG/2 ML VIAL IVP STA (15:13)
[2020-01-17] MEDS ORDERED: MORPHINE SULFATE 4 MG/ML SYRINGE IV STA (15:13)
[2020-01-17 15:23] LABS: Appearance,Urine Clear (Clear); Bacteria,Urine Moderate /hpf; Bilirubin,Urine Negative (Negative); Blood,Urine Negative (Negative); Color,Urine Yellow; Glucose,Urine (UA) Negative (Negative); Ketones,Urine Negative (Negative); Leukocyte Esterase,Urine Trace (Negative); Mucus,Urine Rare /hpf; Nitrite,Urine Negative (Negative); PH, Urine 5.5 (5.0-8.0); Protein,Urine Negative (Negative); RBC,Urine 1 /hpf (0-5); Specific Gravity,Urine 1.012 (1.001-1.035); Squamous Epithelial Cell,Urine 4 /hpf (0-4); Urobilinogen,Urine <2.0 mg/dL (<2.0); WBC,Urine 3 /hpf (0-5)
[2020-01-17 15:41] LABS: Basophils # (A) 0.1 k/uL (0-0.2); Basophils % (A) 1 %; Eosinophils # (A) 0.1 k/uL (0-0.7); Eosinophils % (A) 2 %; HCT 39.4 % (34.0-46.0); HGB 14.1 gm/dL (11.4-16.0); Lymphocytes # (A) 2.9 k/uL (1.0-4.8); Lymphocytes % (A) 45 %; MCH 34.3 pg (25.0-35.0); MCHC 35.8 g/dL (31.0-37.0); MCV 95.8 fL (80.0-100.0); Mean Platelet Volume 8.2; Monocytes # (A) 0.3 k/uL (0-1.0); Monocytes % (A) 4 %; Neutrophils # (A) 3.1 k/uL (1.3-7.7); Neutrophils % (A) 47 %; Platelet Count 196 k/uL (150-450); RBC 4.11 m/uL (3.80-5.40); RDW 12.3 % (11.5-15.5); WBC 6.5 k/uL (3.8-10.6)
--- NOTE | 2020-01-17 16:16 | US ---
EXAMINATION TYPE: US abdomen limited DATE OF EXAM: 01/17/2020 COMPARISON: Gallbladder US dated 09/16/2019 and dated 11/21/2019 CLINICAL HISTORY: epigastric and ruq abd pain. Pain, nausea and diarrhea EXAM MEASUREMENTS: Liver Length: 19.8 cm Gallbladder Wall: 0.2 cm CBD: 0.3 cm Right Kidney: 10.0 x 4.4 x 5.5 cm Pancreas: wnl,tail obscured by overlying bowel gas Liver: Enlarged, heterogeneous and difficult to penetrate Gallbladder: wnl Evidence for sonographic Velasquez's sign: No CBD: wnl Right Kidney: wnl There is no ascites. IMPRESSION: Exam is somewhat limited. Correlate for hepatic steatosis. There is hepatomegaly.
[2020-01-17] MEDS ORDERED: MAG HYDROX/AL HYDROX/SIMETH 30 ML, HYOSCYAMINE ELIXIR 10 ML, LIDOCAINE VISCOUS 2% 10 ML PO STA ×3 (16:21)
[2020-01-17 16:31] LABS: ALT 40 U/L (4-34); AST 54 U/L (14-36); African American GFR (CKD) >90 (>60 ml/min/1.73 sqM); Albumin 4.1 g/dL (3.5-5.0); Alkaline Phosphatase 78 U/L (38-126); Anion Gap 14 mmol/L; Blood Urea Nitrogen 9 mg/dL (7-17); Calcium 10.2 mg/dL (8.4-10.2); Carbon Dioxide 18 mmol/L (22-30); Chloride 103 mmol/L (98-107); Glucose 129 mg/dL (74-99); Non-African American GFR(CKD) >90 (>60 ml/min/1.73 sqM); Sodium 135 mmol/L (137-145); Total Bilirubin 0.6 mg/dL (0.2-1.3); Total Protein 8.3 g/dL (6.3-8.2)
[2020-01-17 16:32] LABS: Potassium 4.3 mmol/L (3.5-5.1)
[2020-01-17 17:30] VITALS: BP 112/73; PULSE 103; RESP 97
== END 2020-01-17 17:28 | disposition home or self-care (01) ==
LOC: EC 14:50
DX: R10.13 Epigastric pain (principal); R10.12 Left upper quadrant pain; K21.9 Gastro-esophageal reflux disease without esophagitis; E11.9 Type 2 diabetes mellitus without complications; J45.909 Unspecified asthma, uncomplicated; F41.9 Anxiety disorder, unspecified; F32.9 Major depressive disorder, single episode, unspecified; Z79.84 Long term (current) use of oral hypoglycemic drugs; Z79.899 Other long term (current) drug therapy; Z91.030 Bee allergy status; Z88.8 Allergy status to other drugs, medicaments and biological substances; Z91.040 Latex allergy status; Z88.5 Allergy status to narcotic agent; Z88.2 Allergy status to sulfonamides; Z88.0 Allergy status to penicillin; Z91.038 Other insect allergy status
CPT/HCPCS: 36415; 80053; 83690; 85025; 81001; 81025; 76705; 99284; 96374; 96375 ×2; 96361; J2270; J2405; C9113

== ENCOUNTER 2020-02-03 13:51 | Emergency (ER) | payer OTHER ==
[2020-02-03 13:57] VITALS: TEMP 97.9
[2020-02-03] MEDS ORDERED: diphenhydrAMINE 50 MG/ML 1 ML VIAL IVP STA (14:09)
[2020-02-03] MEDS ORDERED: KETOROLAC 15 MG/ML 1 ML VIAL IVP STA (14:09)
[2020-02-03] MEDS ORDERED: METOCLOPRAMIDE 5 MG/ML 2 ML VIAL IVP STA (14:09)
[2020-02-03] MEDS ORDERED: SODIUM CHLORIDE 0.9% 1,000 ML IV STA (14:09)
--- NOTE | 2020-02-03 14:41 | ED ---
Headache HPI - General Chief Complaint: Headache Stated Complaint: headache,nausea Time Seen by Provider: 02/03/20 13:59 Mode of arrival: ambulatory Limitations: no limitations - History of Present Illness Initial Comments: Patient is a 21-year-old female presenting to the emergency Department with complaints of a headache and nausea that began about 4 AM this morning. Patient states she does have history of migraines and does take Topamax and Imitrex for her migraines but they are not helping. She states she also tried Tylenol and Motrin without improvement. She admits to light sensitivity, nausea and vomiting. She currently rates her headache an 8/10. She denies any trauma or falls. She states this feels like her typical migraines. She is also complaining of some mild shortness of breath. She denies any fever, chills, chest pain. She states she feels like it's a burning in the middle of her chest. She does have a history of acid reflux as well. She denies any diarrhea. She denies being . She has no further complaints at this time. Upon arrival to the ER, her vitals are stable. - Related Data Home Medications Medication Instructions Recorded Confirmed Omeprazole [PriLOSEC] 40 mg PO HS 07/29/16 10/17/19 EPINEPHrine [Epipen 2-Mike] 0.3 mg IM ONCE PRN 10/16/18 10/17/19 metFORMIN HCL [metFORMIN HCL ER] 750 mg PO W/SUPPER 02/07/19 10/17/19 Hydrocortisone Cream 1 applic TOPICAL BID PRN 05/08/19 10/17/19 [Hydrocortisone 2.5% Cream] Propranolol HCl 20 mg PO BID 05/08/19 10/17/19 SUMAtriptan succinate [Imitrex] 50 mg PO DIRECTED PRN 05/08/19 10/17/19 Topiramate [Topamax] 50 mg PO BID 05/08/19 10/17/19 tiZANidine [Zanaflex] 4 mg PO BID PRN 05/08/19 10/17/19 Albuterol Inhaler [Ventolin Hfa 2 puff INHALATION RT-Q4H PRN 10/17/19 10/17/19 Inhaler] Fenofibrate Nanocrystallized 145 mg PO DAILY 10/17/19 10/17/19 [Fenofibrate] Fish Oil/Dha/Epa [Fish Oil 1,200 1 cap PO DAILY 10/17/19 10/17/19 mg Fish Oil] Ibuprofen [Motrin Ib] 800 mg PO Q8H PRN 10/17/19 10/17/19 Melatonin 5 mg PO HS 10/17/19 10/17/19 QUEtiapine FUMARATE [SEROquel] 400 mg PO HS 10/17/19 10/17/19 Previous Rx's Medication Instructions Recorded Ondansetron Odt [Zofran Odt] 4 mg PO Q8HR PRN #10 tab 07/13/19 Cephalexin [Keflex] 500 mg PO Q8HR 5 Days #15 cap 10/17/19 Cephalexin [Keflex] 500 mg PO Q8HR 5 Days #15 cap 10/18/19 Omeprazole [PriLOSEC] 40 mg PO DAILY #14 cap 11/21/19 Ondansetron Odt [Zofran Odt] 4 mg PO Q8HR PRN #10 tab 11/21/19 Sucralfate [Carafate] 1 gm PO BID #30 tablet 11/21/19 Allergies Allergy/AdvReac Type Severity Reaction Status Date / Time bee pollen Allergy Severe Anaphylaxis Verified 02/03/20 13:57 haloperidol [From Haldol] Allergy Severe QUIT Verified 02/03/20 13:57 BREATHING haloperidol lactate Allergy Severe QUIT Verified 02/03/20 13:57 [From Haldol] BREATHING latex Allergy Severe RASH-THROAT Verified 02/03/20 13:57 CLOSES tramadol Allergy Severe Nausea & Verified 02/03/20 13:57 Vomiting prednisone Allergy THROAT Verified 02/03/20 13:57 SWELLS spider venom Allergy Swelling Verified 02/03/20 13:57 Sulfa (Sulfonamide Allergy THROAT Verified 02/03/20 13:57 Antibiotics) SWELLS promethazine HCl AdvReac Severe Nausea & Verified 02/03/20 13:57 [From Phenergan] Vomiting amoxicillin AdvReac Nausea & Verified 02/03/20 13:57 Vomiting WASP Allergy Severe Swelling Uncoded 02/03/20 13:57 ANTS Allergy Mild Anaphylaxis Uncoded 02/03/20 13:57 Review of Systems ROS Statement: Those systems with pertinent positive or pertinent negative responses have been documented in the HPI. ROS Other: All systems not noted in ROS Statement are negative. Past Medical History Past Medical History: Asthma, Diabetes Mellitus, GERD/Reflux Additional Past Medical History / Comment(s): migraines, degenerative disk disease, endometriosis, lupus, pancreatitis History of Any Multi-Drug Resistant Organisms: None Reported Past Surgical History: Orthopedic Surgery Additional Past Surgical History / Comment(s): laparoscopc surgery for endometriosis, cyst removed from left foot, EGD Past Anesthesia/Blood Transfusion Reactions: Previous Problems w/ Anesthesia Additional Past Anesthesia/Blood Transfusion Reaction / Comment(s): hard to wake up for 48-72 hours after laparoscopic surgery-was in hosp. for 3 days Past Psychological History: Anxiety, Depression, PTSD Smoking Status: Never smoker Past Alcohol Use History: None Reported Past Drug Use History: None Reported - Past Family History Mother Family Medical History: No Reported History Additional Family Medical History / Comment(s): hx migraines Father Family Medical History: Coronary Artery Disease (CAD), Hypertension Additional Family Medical History / Comment(s): ddd, alcoholism & drug use General Exam - General Exam Comments Initial Comments: GENERAL: Patient is well-developed and well-nourished. Patient is nontoxic and in mild distress. Patient sitting on the bed with eyes covered with hat. HEAD: Atraumatic, normocephalic. EYES: Pupils equal round and reactive to light, extraocular movements intact, sclera anicteric, conjunctiva are normal. Eyelids were unremarkable. ENT: TMs normal, nares patent, oropharynx clear without exudates. Moist mucous membranes. NECK: Normal range of motion, supple without lymphadenopathy or JVD. LUNGS: Unlabored respirations. Breath sounds clear to auscultation bilaterally and equal. No wheezes rales or rhonchi. HEART: Regular rate and rhythm without murmurs, rubs or gallops. ABDOMEN: Soft, nontender, normoactive bowel sounds. No guarding, no rebound. No masses appreciated. : Deferred MUSCULOSKELETAL: Normal extremities with adequate strength and normal range of motion, no pitting or edema. No clubbing or cyanosis. NEUROLOGICAL: Patient is alert and oriented x 3. Motor and sensory are also intact. Cranial nerves II through XII grossly intact. Symmetrical smile. Normal speech, normal gait. PSYCH: Normal mood, normal affect. SKIN: Warm, Dry, normal turgor, no rashes or lesions noted. Limitations: no limitations Course Vital Signs 02/03/20 02/03/20 13:55 14:06 Temperature 97.9 F Pulse Rate 121 H 100 Respiratory 20 Rate Blood Pressure 121/88 O2 Sat by Pulse 99 Oximetry Medical Decision Making - Medical Decision Making Patient is a 29-year-old female here with a headache since 4 AM this morning. She does have history of migraines and this feels similar. She is on Topamax and Imitrex for her migraines which she did take this morning without relief. She also tried Tylenol and Motrin. She has associated light sensitivity, nausea and vomiting. Her vital signs are stable. She is complaining of some shortness of breath, chest x-ray shows no acute abnormalities. I did give patient some fluids, nausea and pain medications. She is reporting improvement in her symptoms. She is stable for discharge. Recommended following up with her neurologist. Patient does have a ride home. She is in agreement with this plan of care. Return parameters were discussed with the patient she verbalized unde rstanding. Case discussed with Dr. Rossi. Disposition Clinical Impression: Migraine headache, Nausea Disposition: HOME SELF-CARE Condition: Stable Instructions (If sedation given, give patient instructions): Acute Headache (ED) Additional Instructions: Please return to the Emergency Department if symptoms worsen or any other concerns. Recommending to go home and rest, lots of fluids. Follow-up with neurologist as discussed. Is patient prescribed a controlled substance at d/c from ED?: No Referrals: Isi Carolina MD [Primary Care Provider] - 1-2 days
--- NOTE | 2020-02-03 15:20 | XR ---
EXAMINATION TYPE: XR chest 2V DATE OF EXAM: 02/03/2020 COMPARISON: 05/28/2019 HISTORY: Short of breath TECHNIQUE: FINDINGS: Heart and mediastinum are normal. Lungs are clear. Diaphragm is normal. Bony thorax appears normal. Pulmonary vascularity is normal. IMPRESSION: Normal chest. No change.
[2020-02-03] MEDS ORDERED: MORPHINE SULFATE 4 MG/ML SYRINGE IVP STA (15:45)
[2020-02-03] MEDS ORDERED: BUTALB/APAP/CAFF 50-325-40MG TAB PO STA (16:34)
[2020-02-03] MEDS ORDERED: MORPHINE SULFATE 2 MG/ML SYRINGE IVP ONE (16:34)
[2020-02-03 16:51] VITALS: BP 139/94; PULSE 94; RESP 16
== END 2020-02-03 16:56 | disposition home or self-care (01) ==
LOC: EC 13:51
DX: G43.909 Migraine, unspecified, not intractable, without status migrainosus (principal); R06.02 Shortness of breath; K21.9 Gastro-esophageal reflux disease without esophagitis; J45.909 Unspecified asthma, uncomplicated; E11.9 Type 2 diabetes mellitus without complications; F41.9 Anxiety disorder, unspecified; F32.9 Major depressive disorder, single episode, unspecified; Z79.84 Long term (current) use of oral hypoglycemic drugs; Z79.899 Other long term (current) drug therapy; Z88.0 Allergy status to penicillin; Z88.2 Allergy status to sulfonamides; Z88.8 Allergy status to other drugs, medicaments and biological substances; Z88.6 Allergy status to analgesic agent; Z91.030 Bee allergy status; Z91.038 Other insect allergy status; Z91.040 Latex allergy status
CPT/HCPCS: 71046; 99283; 96374; 96375 ×3; 96376; 96361 ×2; J2270 ×2; J1200; J2765; J1885

== ENCOUNTER 2020-02-05 20:02 | Emergency (ER) | payer OTHER ==
[2020-02-05 20:11] VITALS: BP 95/62; PULSE 121; RESP 18; TEMP 97.7
[2020-02-05] MEDS ORDERED: HYDROmorphone 1 MG/ML 1 ML SYRINGE IM STA (20:27)
--- NOTE | 2020-02-05 20:31 | ED ---
General Adult HPI - General Chief complaint: Headache Stated complaint: Left hand injury Time Seen by Provider: 02/05/20 20:23 Source: patient Mode of arrival: ambulatory Limitations: no limitations - History of Present Illness Initial comments: Dictation was produced using [employer] dictation software. please excuse any grammatical, word or spelling errors. This patient was cared for during a federal and state declared state of emergency secondary to Covid 19 Chief Complaint: 29-year-old female presents with headache and left hand pain History of Present Illness: Is a 29-year-old female she presents today with headache and hand pain. Patient states that she has history of migraines. She feels as though her migraine has returned. Patient has been under a lot of stress recently due to personal reasons. She was seen here 2 days ago for the same complaint. Patient reports relief the last time she was in the emergency room. Patient also presents today with left hand pain. She was reaching for her ring under the dresser when the dresser smashed her hand. Patient complains of left hand pain. Denies any focal neurologic deficits. No visual loss. She reports that her symptoms are similar to her usual symptoms. The ROS documented in this emergency department record has been reviewed and confirmed by me. Those systems with pertinent positive or negative responses have been documented in the HPI. All other systems are other negative and/or noncontributory. PHYSICAL EXAM: General Impression: Alert and oriented x3, not in acute distress HEENT: Normocephalic atraumatic, extra-ocular movements intact, pupils equal and reactive to light bilaterally, mucous membranes moist. Cardiovascular: Heart regular rate and rhythm Chest: Able to complete full sentences, no retractions, no tachypnea Abdomen: abdomen soft, non-tender, non-distended, no organomegaly Musculoskeletal: Pulses present and equal in all extremities, no peripheral edema Left hand: Tenderness to palpation over the MCPs of the second through fifth digits, a well demarcated erythematous line overlying the MCPs distally in a linear fashion Motor: no focal deficits noted Neurological: CN II-XII grossly intact, no focal motor or sensory deficits noted Skin: Intact with no visualized rashes Psych: Normal affect and mood ED course: 29 yo F presents with headache and left hand pain. Vital signs upon arrival shows her to 121, rest of vital signs within acceptable limits. Patient is well-known to emergency department for multiple visitations for a myriad of complaints. Patient have a headache that is typical of her usual headaches. States she's been under a lot of stress and feels that her headache is secondary to stress. She has left hand pain with crush injury to left hand. Patient given IM analgesics.patient given ice pack for her hand. X-rays unremarkable. Patient reevaluated feels much improved. She quit for discharge. - Related Data Home Medications Medication Instructions Recorded Confirmed Omeprazole [PriLOSEC] 40 mg PO HS 07/29/16 10/17/19 EPINEPHrine [Epipen 2-Mike] 0.3 mg IM ONCE PRN 10/16/18 10/17/19 metFORMIN HCL [metFORMIN HCL ER] 750 mg PO W/SUPPER 02/07/19 10/17/19 Hydrocortisone Cream 1 applic TOPICAL BID PRN 05/08/19 10/17/19 [Hydrocortisone 2.5% Cream] Propranolol HCl 20 mg PO BID 05/08/19 10/17/19 SUMAtriptan succinate [Imitrex] 50 mg PO DIRECTED PRN 05/08/19 10/17/19 Topiramate [Topamax] 50 mg PO BID 05/08/19 10/17/19 tiZANidine [Zanaflex] 4 mg PO BID PRN 05/08/19 10/17/19 Albuterol Inhaler [Ventolin Hfa 2 puff INHALATION RT-Q4H PRN 10/17/19 10/17/19 Inhaler] Fenofibrate Nanocrystallized 145 mg PO DAILY 10/17/19 10/17/19 [Fenofibrate] Fish Oil/Dha/Epa [Fish Oil 1,200 1 cap PO DAILY 10/17/19 10/17/19 mg Fish Oil] Ibuprofen [Motrin Ib] 800 mg PO Q8H PRN 10/17/19 10/17/19 Melatonin 5 mg PO HS 10/17/19 10/17/19 QUEtiapine FUMARATE [SEROquel] 400 mg PO HS 10/17/19 10/17/19 Previous Rx's Medication Instructions Recorded Ondansetron Odt [Zofran Odt] 4 mg PO Q8HR PRN #10 tab 07/13/19 Cephalexin [Keflex] 500 mg PO Q8HR 5 Days #15 cap 10/17/19 Cephalexin [Keflex] 500 mg PO Q8HR 5 Days #15 cap 10/18/19 Omeprazole [PriLOSEC] 40 mg PO DAILY #14 cap 11/21/19 Ondansetron Odt [Zofran Odt] 4 mg PO Q8HR PRN #10 tab 11/21/19 Sucralfate [Carafate] 1 gm PO BID #30 tablet 11/21/19 Allergies Allergy/AdvReac Type Severity Reaction Status Date / Time bee pollen Allergy Severe Anaphylaxis Verified 02/05/20 20:11 haloperidol [From Haldol] Allergy Severe QUIT Verified 02/05/20 20:11 BREATHING haloperidol lactate Allergy Severe QUIT Verified 02/05/20 20:11 [From Haldol] BREATHING latex Allergy Severe RASH-THROAT Verified 02/05/20 20:11 CLOSES tramadol Allergy Severe Nausea & Verified 02/05/20 20:11 Vomiting prednisone Allergy THROAT Verified 02/05/20 20:11 SWELLS spider venom Allergy Swelling Verified 02/05/20 20:11 Sulfa (Sulfonamide Allergy THROAT Verified 02/05/20 20:11 Antibiotics) SWELLS promethazine HCl AdvReac Severe Nausea & Verified 02/05/20 20:11 [From Phenergan] Vomiting amoxicillin AdvReac Nausea & Verified 02/05/20 20:11 Vomiting WASP Allergy Severe Swelling Uncoded 02/05/20 20:11 ANTS Allergy Mild Anaphylaxis Uncoded 02/05/20 20:11 Review of Systems ROS Statement: Those systems with pertinent positive or pertinent negative responses have been documented in the HPI. ROS Other: All systems not noted in ROS Statement are negative. Past Medical History Past Medical History: Asthma, Diabetes Mellitus, GERD/Reflux Additional Past Medical History / Comment(s): migraines, degenerative disk dis ease, endometriosis, lupus, pancreatitis History of Any Multi-Drug Resistant Organisms: None Reported Past Surgical History: Orthopedic Surgery Additional Past Surgical History / Comment(s): laparoscopc surgery for endometriosis, cyst removed from left foot, EGD Past Anesthesia/Blood Transfusion Reactions: Previous Problems w/ Anesthesia Additional Past Anesthesia/Blood Transfusion Reaction / Comment(s): hard to wake up for 48-72 hours after laparoscopic surgery-was in hosp. for 3 days Past Psychological History: Anxiety, Depression, PTSD Smoking Status: Never smoker Past Alcohol Use History: None Reported Past Drug Use History: None Reported - Past Family History Mother Family Medical History: No Reported History Additional Family Medical History / Comment(s): hx migraines Father Family Medical History: Coronary Artery Disease (CAD), Hypertension Additional Family Medical History / Comment(s): ddd, alcoholism & drug use General Exam Limitations: no limitations Course Vital Signs 02/05/20 20:09 Temperature 97.7 F Pulse Rate 121 H Respiratory 18 Rate Blood Pressure 95/62 O2 Sat by Pulse 98 Oximetry Disposition Clinical Impression: Hand contusion Disposition: HOME SELF-CARE Condition: Good Instructions (If sedation given, give patient instructions): Acute Headache (ED), Hand Sprain (ED) Is patient prescribed a controlled substance at d/c from ED?: No Referrals: Isi Carolina MD [Primary Care Provider] - 1-2 days Time of Disposition: 21:11
[2020-02-05] MEDS ORDERED: diphenhydrAMINE 50 MG/ML 1 ML VIAL IM STA (20:41)
--- NOTE | 2020-02-05 21:11 | XR ---
EXAMINATION TYPE: XR hand complete LT DATE OF EXAM: 02/05/2020 COMPARISON: NONE HISTORY: Pain TECHNIQUE: 3 views FINDINGS: Metacarpals appear intact. The fingers appear intact. I see no fracture nor dislocation. IMPRESSION: Negative left hand exam. No fracture seen.
== END 2020-02-05 21:16 | disposition home or self-care (01) ==
LOC: EC 20:02
DX: S60.222A Contusion of left hand, initial encounter (principal); R51.9 Headache, unspecified; E11.9 Type 2 diabetes mellitus without complications; F32.9 Major depressive disorder, single episode, unspecified; F41.9 Anxiety disorder, unspecified; J45.909 Unspecified asthma, uncomplicated; K21.9 Gastro-esophageal reflux disease without esophagitis; M32.9 Systemic lupus erythematosus, unspecified; F43.10 Post-traumatic stress disorder, unspecified; Z79.84 Long term (current) use of oral hypoglycemic drugs; Z79.899 Other long term (current) drug therapy; Z79.51 Long term (current) use of inhaled steroids; Z88.0 Allergy status to penicillin; Z91.030 Bee allergy status; Z91.038 Other insect allergy status; Z88.2 Allergy status to sulfonamides; Z88.5 Allergy status to narcotic agent; Z88.8 Allergy status to other drugs, medicaments and biological substances; Z91.040 Latex allergy status; Z86.69 Personal history of other diseases of the nervous system and sense organs; W23.0XXA Caught, crushed, jammed, or pinched between moving objects, initial encounter; Y92.009 Unspecified place in unspecified non-institutional (private) residence as the place of occurrence of the external cause
CPT/HCPCS: 73130; 96372 ×2; 99283; J1200; J1170

== ENCOUNTER 2020-02-07 13:17 | Emergency (ER) | payer OTHER ==
[2020-02-07] MEDS ORDERED: ASPIRIN 81 MG PO STA (13:51)
[2020-02-07] MEDS ORDERED: ACETAMINOPHEN TAB 500 MG TAB PO STA (13:51)
--- NOTE | 2020-02-07 13:55 | ED ---
Chest Pain HPI - General Chief Complaint: Chest Pain Stated Complaint: Chest Pain Time Seen by Provider: 02/07/20 13:43 Source: patient, RN notes reviewed, old records reviewed Mode of arrival: wheelchair Limitations: no limitations - History of Present Illness Initial Comments: Patient is 21-year-old female who presents the ER today for evaluation with complaints of chest pain shortness of breath starting 1 hour prior to arrival. Patient is well-known to the emergency department for multiple visits. Patient states that she's having some tingling and numbness go down the left arm. She also complains of a headache. Patient denies fevers or chills or cough. She reports a history of asthma. - Related Data Home Medications Medication Instructions Recorded Confirmed EPINEPHrine [Epipen 2-Mike] 0.3 mg IM ONCE PRN 10/16/18 02/07/20 metFORMIN HCL [metFORMIN HCL ER] 750 mg PO W/SUPPER 02/07/19 02/07/20 Propranolol HCl 20 mg PO BID 05/08/19 02/07/20 SUMAtriptan succinate [Imitrex] 50 mg PO DAILY PRN 05/08/19 02/07/20 Topiramate [Topamax] 50 mg PO BID 05/08/19 02/07/20 tiZANidine [Zanaflex] 4 mg PO DAILY PRN 05/08/19 02/07/20 Albuterol Inhaler [Ventolin Hfa 2 puff INHALATION RT-Q4H PRN 10/17/19 02/07/20 Inhaler] Fenofibrate Nanocrystallized 145 mg PO DAILY 10/17/19 02/07/20 [Fenofibrate] Fish Oil/Dha/Epa [Fish Oil 1,200 1 cap PO DAILY 10/17/19 02/07/20 mg Fish Oil] Melatonin 5 mg PO HS 10/17/19 02/07/20 QUEtiapine FUMARATE [SEROquel] 400 mg PO HS 10/17/19 02/07/20 Cyanocobalamin (Vitamin B-12) 1,000 mcg PO DAILY 02/07/20 02/07/20 [Vitamin B-12] Previous Rx's Medication Instructions Recorded Omeprazole [PriLOSEC] 40 mg PO DAILY #14 cap 11/21/19 Ondansetron Odt [Zofran Odt] 4 mg PO Q8HR PRN #10 tab 11/21/19 Allergies Allergy/AdvReac Type Severity Reaction Status Date / Time bee pollen Allergy Severe Anaphylaxis Verified 02/07/20 14:46 haloperidol [From Haldol] Allergy Severe QUIT Verified 02/07/20 14:46 BREATHING haloperidol lactate Allergy Severe QUIT Verified 02/07/20 14:46 [From Haldol] BREATHING latex Allergy Severe RASH-THROAT Verified 02/07/20 14:46 CLOSES tramadol Allergy Severe Nausea & Verified 02/07/20 14:46 Vomiting prednisone Allergy THROAT Verified 02/07/20 14:46 SWELLS spider venom Allergy Swelling Verified 02/07/20 14:46 Sulfa (Sulfonamide Allergy THROAT Verified 02/07/20 14:46 Antibiotics) SWELLS promethazine HCl AdvReac Severe Nausea & Verified 02/07/20 14:46 [From Phenergan] Vomiting amoxicillin AdvReac Nausea & Verified 02/07/20 14:46 Vomiting WASP Allergy Severe Swelling Uncoded 02/07/20 13:24 ANTS Allergy Mild Anaphylaxis Uncoded 02/07/20 13:24 Review of Systems ROS Statement: Those systems with pertinent positive or pertinent negative responses have been documented in the HPI. ROS Other: All systems not noted in ROS Statement are negative. EKG Findings - EKG Comments: EKG Findings:: EKG performed shows sinus bradycardia with sinus bradycardia with marked sinus arrhythmia. Rightward axis. Borderline EKG. Ventricular rate of 57 bpm. Verbal 160 ms. QS duration 72 ms. QT QTc is 456/[address] elevation. Past Medical History Past Medical History: Asthma, Diabetes Mellitus, GERD/Reflux Additional Past Medical History / Comment(s): migraines, degenerative disk disease, endometriosis, lupus, pancreatitis History of Any Multi-Drug Resistant Organisms: None Reported Past Surgical History: Orthopedic Surgery Additional Past Surgical History / Comment(s): laparoscopc surgery for endometri osis, cyst removed from left foot, EGD Past Anesthesia/Blood Transfusion Reactions: Previous Problems w/ Anesthesia Additional Past Anesthesia/Blood Transfusion Reaction / Comment(s): hard to wake up for 48-72 hours after laparoscopic surgery-was in hosp. for 3 days Past Psychological History: Anxiety, Depression, PTSD Smoking Status: Never smoker Past Alcohol Use History: None Reported Past Drug Use History: None Reported - Past Family History Mother Family Medical History: No Reported History Additional Family Medical History / Comment(s): hx migraines Father Family Medical History: Coronary Artery Disease (CAD), Hypertension Additional Family Medical History / Comment(s): ddd, alcoholism & drug use General Exam - General Exam Comments Initial Comments: Alert and oriented 29-year-old female. No distress. Limitations: no limitations General appearance: alert, in no apparent distress Head exam: Present: atraumatic, normocephalic, normal inspection Eye exam: Present: normal appearance, PERRL, EOMI. Absent: scleral icterus, conjunctival injection, periorbital swelling ENT exam: Present: normal exam, mucous membranes moist Neck exam: Present: normal inspection. Absent: tenderness, meningismus, lymphadenopathy Respiratory exam: Present: normal lung sounds bilaterally. Absent: respiratory distress, wheezes, rales, rhonchi, stridor Cardiovascular Exam: Present: regular rate, normal rhythm, normal heart sounds. Absent: systolic murmur, diastolic murmur, rubs, gallop, clicks GI/Abdominal exam: Present: soft, normal bowel sounds. Absent: distended, tenderness, guarding, rebound, rigid Extremities exam: Present: normal inspection, full ROM, normal capillary refill. Absent: tenderness, pedal edema, joint swelling, calf tenderness Back exam: Present: normal inspection Neurological exam: Present: alert, oriented X3, CN II-XII intact Course Vital Signs 02/07/20 02/07/20 02/07/20 13:22 14:24 16:30 Temperature 97.9 F 98.0 F Pulse Rate 75 56 L 73 Respiratory 18 20 18 Rate Blood Pressure 138/94 128/82 113/72 O2 Sat by Pulse 100 99 98 Oximetry Chest [facility] Patient's 21-year-old female presents with 1 hour chest pain shortness breath. Patient appears somewhat anxious. Patient's labwork including EKG reviewed and negative for any acute process. Negative troponin. Chest x-ray is normal. Reevaluation discussed symptoms seem to be related to anxiety is no again across her patient's symptoms. Patient is agreeable to this statement. Patient will request something for anxiety prior to discharge. Discussed following up with PCP. Chest x-ray reviewed and negative for acute process . Disposition Clinical Impression: Anxiety Disposition: HOME SELF-CARE Condition: Good Instructions (If sedation given, give patient instructions): Generalized Anxiety Disorder (ED) Additional Instructions: Follow-up with primary care doctor. Return to ED if any alarming signs or symptoms occur. Is patient prescribed a controlled substance at d/c from ED?: No Referrals: Isi Carolina MD [Primary Care Provider] - 1-2 days Time of Disposition: 16:08
[2020-02-07 14:58] LABS: ALT 39 U/L (4-34); AST 51 U/L (14-36); African American GFR (CKD) >90 (>60 ml/min/1.73 sqM); Albumin 4.1 g/dL (3.5-5.0); Alkaline Phosphatase 82 U/L (38-126); Anion Gap 13 mmol/L; Blood Urea Nitrogen 8 mg/dL (7-17); Calcium 10.2 mg/dL (8.4-10.2); Carbon Dioxide 19 mmol/L (22-30); Chloride 100 mmol/L (98-107); Glucose 201 mg/dL (74-99); Magnesium 1.6 mg/dL (1.6-2.3); Non-African American GFR(CKD) >90 (>60 ml/min/1.73 sqM); Sodium 132 mmol/L (137-145); Total Bilirubin 0.6 mg/dL (0.2-1.3); Total Protein 8.2 g/dL (6.3-8.2)
--- NOTE | 2020-02-07 15:09 | XR ---
EXAMINATION TYPE: XR chest 2V DATE OF EXAM: 02/07/2020 COMPARISON: Chest x-ray February 03, 2020. HISTORY: Chest pain and shortness of breath today. TECHNIQUE: Frontal and lateral views of the chest are obtained. FINDINGS: There is no focal air space opacity, pleural effusion, or pneumothorax seen. The cardiac silhouette size is within normal limits. The osseous structures are intact. IMPRESSION: No acute cardiopulmonary process. No significant change from prior.
[2020-02-07 15:20] LABS: Partial Thromboplastin Time 24.3 sec (22.0-30.0); Prothrombin Time 9.9 sec (9.0-12.0)
[2020-02-07 15:29] LABS: Basophils % (A) 0 %; Eosinophils # (A) 0.1 k/uL (0-0.7); Eosinophils % (A) 2 %; HCT 38.6 % (34.0-46.0); HGB 14.4 gm/dL (11.4-16.0); Lymphocytes # (A) 2.5 k/uL (1.0-4.8); Lymphocytes % (A) 31 %; MCH 35.5 pg (25.0-35.0); MCHC 37.3 g/dL (31.0-37.0); MCV 95.1 fL (80.0-100.0); Mean Platelet Volume 9.6; Monocytes # (A) 0.3 k/uL (0-1.0); Monocytes % (A) 4 %; Neutrophils % (A) 62 %; Platelet Count 208 k/uL (150-450); RBC 4.06 m/uL (3.80-5.40); RDW 13.2 % (11.5-15.5)
[2020-02-07] MEDS ORDERED: LORazepam 2 MG/ML INJ IV STA (16:08)
[2020-02-07 16:48] VITALS: BP 113/72; PULSE 73; RESP 18; TEMP 98
== END 2020-02-07 16:30 | disposition home or self-care (01) ==
LOC: EC 13:17
DX: F41.9 Anxiety disorder, unspecified (principal); J45.909 Unspecified asthma, uncomplicated; E11.9 Type 2 diabetes mellitus without complications; K21.9 Gastro-esophageal reflux disease without esophagitis; F32.9 Major depressive disorder, single episode, unspecified; F43.10 Post-traumatic stress disorder, unspecified; G43.909 Migraine, unspecified, not intractable, without status migrainosus; Z79.84 Long term (current) use of oral hypoglycemic drugs; Z79.51 Long term (current) use of inhaled steroids; Z79.899 Other long term (current) drug therapy; Z91.030 Bee allergy status; Z88.8 Allergy status to other drugs, medicaments and biological substances; Z91.040 Latex allergy status; Z88.5 Allergy status to narcotic agent; Z91.038 Other insect allergy status; Z88.2 Allergy status to sulfonamides; Z88.1 Allergy status to other antibiotic agents; Z88.0 Allergy status to penicillin; Z88.6 Allergy status to analgesic agent
CPT/HCPCS: 99285; 96374; 36415; 93005; 80053; 83735; 84484; 85025; 85610; 85730; 71046; J2060

== ENCOUNTER 2020-02-14 15:01 | Emergency (ER) | payer OTHER ==
[2020-02-14] MEDS ORDERED: SODIUM CHLORIDE 0.9% 1,000 ML IV STA (15:23)
[2020-02-14] MEDS ORDERED: diphenhydrAMINE 50 MG/ML 1 ML VIAL IVP STA (15:24)
[2020-02-14] MEDS ORDERED: METOCLOPRAMIDE 5 MG/ML 2 ML VIAL IVP STA (15:24)
[2020-02-14] MEDS ORDERED: KETOROLAC 15 MG/ML 1 ML VIAL IVP STA (15:24)
--- NOTE | 2020-02-14 15:37 | ED ---
General Adult HPI - General Chief complaint: Headache Stated complaint: headache/sob Time Seen by Provider: 02/14/20 15:13 Source: patient Mode of arrival: ambulatory Limitations: no limitations - History of Present Illness Initial comments: Patient is a 29-year-old female, well-known to the ER, presenting to emergency Department with complaints of headache, shortness of breath along with some vomiting that started this morning. Patient states she woke up this morning with a nosebleed which has since stopped, and as well as a headache, a few vomiting episodes this morning. Patient states she also feels like her heart is racing. She denies any chest pain but does feel like she is short of breath. She does have history of asthma and has been taking her inhaler at home without relief of symptoms. Patient denies any specific abdominal pain, no diarrhea, no dysuria. She's been having regular bowel movements. She does have a history of migraines as well. She states she tried to eat a little bit of ptosis morning and that came back up. She has no other complaints at this time. Upon arrival to the ER, her pulse was 138, afebrile, blood pressure is 93/36, 98% on room air. - Related Data Home Medications Medication Instructions Recorded Confirmed EPINEPHrine [Epipen 2-Mike] 0.3 mg IM ONCE PRN 10/16/18 02/07/20 metFORMIN HCL [metFORMIN HCL ER] 750 mg PO W/SUPPER 02/07/19 02/07/20 Propranolol HCl 20 mg PO BID 05/08/19 02/07/20 SUMAtriptan succinate [Imitrex] 50 mg PO DAILY PRN 05/08/19 02/07/20 Topiramate [Topamax] 50 mg PO BID 05/08/19 02/07/20 tiZANidine [Zanaflex] 4 mg PO DAILY PRN 05/08/19 02/07/20 Albuterol Inhaler [Ventolin Hfa 2 puff INHALATION RT-Q4H PRN 10/17/19 02/07/20 Inhaler] Fenofibrate Nanocrystallized 145 mg PO DAILY 10/17/19 02/07/20 [Fenofibrate] Fish Oil/Dha/Epa [Fish Oil 1,200 1 cap PO DAILY 10/17/19 02/07/20 mg Fish Oil] Melatonin 5 mg PO HS 10/17/19 02/07/20 QUEtiapine FUMARATE [SEROquel] 400 mg PO HS 10/17/19 02/07/20 Cyanocobalamin (Vitamin B-12) 1,000 mcg PO DAILY 02/07/20 02/07/20 [Vitamin B-12] Previous Rx's Medication Instructions Recorded Omeprazole [PriLOSEC] 40 mg PO DAILY #14 cap 11/21/19 Ondansetron Odt [Zofran Odt] 4 mg PO Q8HR PRN #10 tab 11/21/19 Allergies Allergy/AdvReac Type Severity Reaction Status Date / Time bee pollen Allergy Severe Anaphylaxis Verified 02/14/20 15:11 haloperidol [From Haldol] Allergy Severe QUIT Verified 02/14/20 15:11 BREATHING haloperidol lactate Allergy Severe QUIT Verified 02/14/20 15:11 [From Haldol] BREATHING latex Allergy Severe RASH-THROAT Verified 02/14/20 15:11 CLOSES tramadol Allergy Severe Nausea & Verified 02/14/20 15:11 Vomiting prednisone Allergy THROAT Verified 02/14/20 15:11 SWELLS spider venom Allergy Swelling Verified 02/14/20 15:11 Sulfa (Sulfonamide Allergy THROAT Verified 02/14/20 15:11 Antibiotics) SWELLS promethazine HCl AdvReac Severe Nausea & Verified 02/14/20 15:11 [From Phenergan] Vomiting amoxicillin AdvReac Nausea & Verified 02/14/20 15:11 Vomiting WASP Allergy Severe Swelling Uncoded 02/14/20 15:11 ANTS Allergy Mild Anaphylaxis Uncoded 02/14/20 15:11 Review of Systems ROS Statement: Those systems with pertinent positive or pertinent negative responses have been documented in the HPI. ROS Other: All systems not noted in ROS Statement are negative. Past Medical History Past Medical History: Asthma, Diabetes Mellitus, GERD/Reflux Additional Past Medical History / Comment(s): migraines, degenerative disk disease, endometriosis, lupus, pancreatitis History of Any Multi-Drug Resistant Organisms: None Reported Past Surgical History: Orthopedic Surgery Additional Past Surgical History / Comment(s): laparoscopc surgery for endometriosis, cyst removed from left foot, EGD Past Anesthesia/Blood Transfusion Reactions: Previous Problems w/ Anesthesia Additional Past Anesthesia/Blood Transfusion Reaction / Comment(s): hard to wake up for 48-72 hours after laparoscopic surgery-was in hosp. for 3 days Past Psychological History: Anxiety, Depression, PTSD Smoking Status: Never smoker Past Alcohol Use History: None Reported Past Drug Use History: None Reported - Past Family History Mother Family Medical History: No Reported History Additional Family Medical History / Comment(s): hx migraines Father Family Medical History: Coronary Artery Disease (CAD), Hypertension Additional Family Medical History / Comment(s): ddd, alcoholism & drug use General Exam - General Exam Comments Initial Comments: GENERAL: Patient is well-developed and well-nourished. Patient is nontoxic and in no acute distress, but does seem to be breathing fast.. HEAD: Atraumatic, normocephalic. EYES: Pupils equal round and reactive to light, extraocular movements intact, sclera anicteric, conjunctiva are normal. Eyelids were unremarkable. ENT: TMs normal, nares patent, oropharynx clear without exudates. Moist mucous membranes. NECK: Normal range of motion, supple without lymphadenopathy or JVD. LUNGS: Tachypnea, Breath sounds clear to auscultation bilaterally and equal. No wheezes rales or rhonchi. HEART: Tachy rate and rhythm without murmurs, rubs or gallops. ABDOMEN: Soft, nontender, normoactive bowel sounds. No guarding, no rebound. No masses appreciated. : Deferred MUSCULOSKELETAL: Normal extremities with adequate strength and normal range of motion, no pitting or edema. No clubbing or cyanosis. NEUROLOGICAL: Patient is alert and oriented x 3. Motor and sensory are also intact. Cranial nerves II through XII grossly intact. Symmetrical smile. Normal speech, normal gait. PSYCH: Normal mood, normal affect. SKIN: Warm, Dry, normal turgor, no rashes or lesions noted. Limitations: no limitations Course Vital Signs 02/14/20 15:07 Temperature 99.2 F Pulse Rate 138 H Respiratory 24 Rate Blood Pressure 93/36 O2 Sat by Pulse 98 Oximetry EKG Findings - EKG Comments: EKG Findings:: Sinus tach, no signs of acute ischemia. Ventricular rate 119, ID interval 128, QT 334. Medical Decision Making - Medical Decision Making Patient is a 29-year-old female, well-known to the ER, presenting with a headache, shortness of breath that started this morning. Patient states she has had a nosebleed medicines ended. Patient did arrive very tachycardia, feeling this was self-induced. Her lungs were clear, chest x-ray showed no acute abnormality. EKG showed no abnormality other than tachycardia. Did do lab work, no acute process, d-dimer was negative, liver enzymes are stable, urine showed no evidence of infection, 1+ ketone. Patient was given typical migraine cocktail, then given a little morphine. Patient states her symptoms have improved but before she leaves she was requesting additional pain medication. I stated that her workup is normal today, I do not want to give her any more opiates. Patient states she will go home and take some Tylenol or Motrin as needed. She can also try Excedrin Extra Strength for migraines. Her vital signs have stabilized she is in no acute distress, resting comfortably, playing on her phone. She is in agreement with this plan of care. She is stable for discharge. Return parameters were discussed with the patient and she verbalized understanding. Case discussed with Dr. Turner. - Lab Data Result diagrams: 02/14/20 16:02 02/14/20 16:02 Lab Results 02/14/20 02/14/20 02/14/20 Range/Units 16:02 16:02 16:02 WBC 6.7 (3.8-10.6) k/uL RBC 4.73 (3.80-5.40) m/uL Hgb 15.3 (11.4-16.0) gm/dL Hct 45.4 (34.0-46.0) % MCV 96.1 (80.0-100.0) fL MCH 32.3 (25.0-35.0) pg MCHC 33.6 (31.0-37.0) g/dL RDW 12.6 (11.5-15.5) % Plt Count 228 (150-450) k/uL Neutrophils % 67 % Lymphocytes % 29 % Monocytes % 3 % Eosinophils % 1 % Basophils % 1 % Neutrophils # 4.5 (1.3-7.7) k/uL Lymphocytes # 1.9 (1.0-4.8) k/uL Monocytes # 0.2 (0-1.0) k/uL Eosinophils # 0.0 (0-0.7) k/uL Basophils # 0.0 (0-0.2) k/uL D-Dimer 0.36 (<0.60) mg/L FEU Sodium (137-145) mmol/L Potassium (3.5-5.1) mmol/L Chloride (98-107) mmol/L Carbon Dioxide (22-30) mmol/L Anion Gap mmol/L BUN (7-17) mg/dL Creatinine (0.52-1.04) mg/dL Est GFR (CKD-EPI)AfAm (>60 ml/min/1.73 sqM) Est GFR (CKD-EPI)NonAf (>60 ml/min/1.73 sqM) Glucose (74-99) mg/dL Calcium (8.4-10.2) mg/dL Total Bilirubin (0.2-1.3) mg/dL AST (14-36) U/L ALT (4-34) U/L Alkaline Phosphatase (38-126) U/L Total Protein (6.3-8.2) g/dL Albumin (3.5-5.0) g/dL Urine Color Yellow Urine Appearance Cloudy H (Clear) Urine pH 6.0 (5.0-8.0) Ur Specific Juda 1.014 (1.001-1.035) Urine Protein Trace H (Negative) Urine Glucose (UA) 1+ H (Negative) Urine Ketones 1+ H (Negative) Urine Blood Moderate H (Negative) Urine Nitrite Negative (Negative) Urine Bilirubin Negative (Negative) Urine Urobilinogen <2.0 (<2.0) mg/dL Ur Leukocyte Esterase Negative (Negative) Urine RBC 4 (0-5) /hpf Urine WBC 2 (0-5) /hpf Ur Squamous Epith Cells 5 H (0-4) /hpf Urine Bacteria Few H (None) /hpf Hyaline Casts 1 (0-2) /lpf Urine Mucus Rare H (None) /hpf Urine HCG, Qual (Not Detectd) 02/14/20 02/14/20 Range/Units 16:02 16:02 WBC (3.8-10.6) k/uL RBC (3.80-5.40) m/uL Hgb (11.4-16.0) gm/dL Hct (34.0-46.0) % MCV (80.0-100.0) fL MCH (25.0-35.0) pg MCHC (31.0-37.0) g/dL RDW (11.5-15.5) % Plt Count (150-450) k/uL Neutrophils % % Lymphocytes % % Monocytes % % Eosinophils % % Basophils % % Neutrophils # (1.3-7.7) k/uL Lymphocytes # (1.0-4.8) k/uL Monocytes # (0-1.0) k/uL Eosinophils # (0-0.7) k/uL Basophils # (0-0.2) k/uL D-Dimer (<0.60) mg/L FEU Sodium 136 L (137-145) mmol/L Potassium 4.7 (3.5-5.1) mmol/L Chloride 100 (98-107) mmol/L Carbon Dioxide 24 (22-30) mmol/L Anion Gap 12 mmol/L BUN 10 (7-17) mg/dL Creatinine 0.81 (0.52-1.04) mg/dL Est GFR (CKD-EPI)AfAm >90 (>60 ml/min/1.73 sqM) Est GFR (CKD-EPI)NonAf >90 (>60 ml/min/1.73 sqM) Glucose 174 H (74-99) mg/dL Calcium 10.6 H (8.4-10.2) mg/dL Total Bilirubin 0.6 (0.2-1.3) mg/dL AST 52 H (14-36) U/L ALT 43 H (4-34) U/L Alkaline Phosphatase 84 (38-126) U/L Total Protein 8.9 H (6.3-8.2) g/dL Albumin 4.7 (3.5-5.0) g/dL Urine Color Urine Appearance (Clear) Urine pH (5.0-8.0) Ur Specific Juda (1.001-1.035) Urine Protein (Negative) Urine Glucose (UA) (Negative) Urine Ketones (Negative) Urine Blood (Negative) Urine Nitrite (Negative) Urine Bilirubin (Negative) Urine Urobilinogen (<2.0) mg/dL Ur Leukocyte Esterase (Negative) Urine RBC (0-5) /hpf Urine WBC (0-5) /hpf Ur Squamous Epith Cells (0-4) /hpf Urine Bacteria (None) /hpf Hyaline Casts (0-2) /lpf Urine Mucus (None) /hpf Urine HCG, Qual Not Detected (Not Detectd) Disposition Clinical Impression: Headache, Nausea Disposition: HOME SELF-CARE Condition: Stable Instructions (If sedation given, give patient instructions): Acute Headache (ED) Additional Instructions: Please return to the Emergency Department if symptoms worsen or any other concerns. Continue to increase water intake, may alternate between Tylenol and Motrin for better headache control. Trial of Excedrin Extra Strength. Follow-up with PCP. Is patient prescribed a controlled substance at d/c from ED?: No Referrals: Isi Carolina MD [Primary Care Provider] - 1-2 days
[2020-02-14 16:13] LABS: Basophils % (A) 1 %; Eosinophils % (A) 1 %; HCT 45.4 % (34.0-46.0); HGB 15.3 gm/dL (11.4-16.0); Lymphocytes # (A) 1.9 k/uL (1.0-4.8); Lymphocytes % (A) 29 %; MCH 32.3 pg (25.0-35.0); MCHC 33.6 g/dL (31.0-37.0); MCV 96.1 fL (80.0-100.0); Mean Platelet Volume 8.2; Monocytes # (A) 0.2 k/uL (0-1.0); Monocytes % (A) 3 %; Neutrophils # (A) 4.5 k/uL (1.3-7.7); Neutrophils % (A) 67 %; Platelet Count 228 k/uL (150-450); RBC 4.73 m/uL (3.80-5.40); RDW 12.6 % (11.5-15.5); WBC 6.7 k/uL (3.8-10.6)
--- NOTE | 2020-02-14 16:17 | XR ---
EXAMINATION TYPE: XR chest 2V DATE OF EXAM: 02/14/2020 COMPARISON: Chest x-ray February 07, 2020. HISTORY: History of asthma with cough and shortness of breath. TECHNIQUE: Frontal and lateral views of the chest are obtained. FINDINGS: There is no focal air space opacity, pleural effusion, or pneumothorax seen. The cardiac silhouette size is within normal limits. The osseous structures are intact. IMPRESSION: No acute cardiopulmonary process. No significant change from prior.
[2020-02-14 16:22] LABS: ALT 43 U/L (4-34); AST 52 U/L (14-36); African American GFR (CKD) >90 (>60 ml/min/1.73 sqM); Albumin 4.7 g/dL (3.5-5.0); Alkaline Phosphatase 84 U/L (38-126); Anion Gap 12 mmol/L; Blood Urea Nitrogen 10 mg/dL (7-17); Calcium 10.6 mg/dL (8.4-10.2); Carbon Dioxide 24 mmol/L (22-30); Chloride 100 mmol/L (98-107); Glucose 174 mg/dL (74-99); Non-African American GFR(CKD) >90 (>60 ml/min/1.73 sqM); Potassium 4.7 mmol/L (3.5-5.1); Sodium 136 mmol/L (137-145); Total Bilirubin 0.6 mg/dL (0.2-1.3); Total Protein 8.9 g/dL (6.3-8.2)
[2020-02-14 16:27] LABS: Appearance,Urine Cloudy (Clear); Bacteria,Urine Few /hpf; Bilirubin,Urine Negative (Negative); Blood,Urine Moderate (Negative); Color,Urine Yellow; Glucose,Urine (UA) 1+ (Negative); Hyaline Casts,Urine 1 /lpf (0-2); Ketones,Urine 1+ (Negative); Leukocyte Esterase,Urine Negative (Negative); Mucus,Urine Rare /hpf; Nitrite,Urine Negative (Negative); Protein,Urine Trace (Negative); RBC,Urine 4 /hpf (0-5); Specific Gravity,Urine 1.014 (1.001-1.035); Squamous Epithelial Cell,Urine 5 /hpf (0-4); Urobilinogen,Urine <2.0 mg/dL (<2.0); WBC,Urine 2 /hpf (0-5)
[2020-02-14] MEDS ORDERED: MORPHINE SULFATE 2 MG/ML SYRINGE IVP ONE (16:41)
[2020-02-14 18:05] VITALS: BP 136/90; PULSE 107; RESP 18; TEMP 98.4
== END 2020-02-14 18:04 | disposition home or self-care (01) ==
LOC: EC 15:01
DX: G43.909 Migraine, unspecified, not intractable, without status migrainosus (principal); R00.0 Tachycardia, unspecified; J45.909 Unspecified asthma, uncomplicated; E11.9 Type 2 diabetes mellitus without complications; F32.9 Major depressive disorder, single episode, unspecified; F41.9 Anxiety disorder, unspecified; F43.10 Post-traumatic stress disorder, unspecified; Z79.84 Long term (current) use of oral hypoglycemic drugs; Z79.890 Hormone replacement therapy; Z79.899 Other long term (current) drug therapy; Z91.048 Other nonmedicinal substance allergy status; Z88.8 Allergy status to other drugs, medicaments and biological substances; Z91.040 Latex allergy status; Z88.5 Allergy status to narcotic agent; Z91.038 Other insect allergy status; Z88.2 Allergy status to sulfonamides; Z88.0 Allergy status to penicillin
CPT/HCPCS: 36415; 93005; 85379; 80053; 85025; 81001; 81025; 71046; 99284; 96374; 96375 ×3; 96361; J1200; J2765; J2270; J1885

== ENCOUNTER 2020-02-17 03:08 | Emergency (ER) | payer OTHER ==
[2020-02-17] MEDS ORDERED: KETOROLAC 15 MG/ML 1 ML VIAL IVP STA (03:47)
[2020-02-17] MEDS ORDERED: KETOROLAC 15 MG/ML 1 ML VIAL IM STA (03:49)
--- NOTE | 2020-02-17 05:08 | XR ---
EXAM: XR Lumbosacral Spine, 2 or 3 Views CLINICAL HISTORY: Fall, injury TECHNIQUE: Frontal and lateral views of the lumbar spine and sacrum. COMPARISON: No relevant prior studies available. FINDINGS: Vertebrae: Unremarkable. No acute fracture. Normal alignment. Sacrum/coccyx: Unremarkable as visualized. No acute fracture. Disc spaces: No acute findings. No significant narrowing. Soft tissues: Unremarkable. IMPRESSION: Negative lumbar spine x-rays.
--- NOTE | 2020-02-17 05:13 | CT ---
EXAM: CT Head Without Intravenous Contrast CLINICAL HISTORY: Fall, injury. TECHNIQUE: Axial computed tomography images of the head/brain without intravenous contrast. CTDI is 49.27 mGy and DLP is 1095.4 mGy-cm. This CT exam was performed using one or more of the following dose reduction techniques: automated exposure control, adjustment of the mA and/or kV according to patient size, and/or use of iterative reconstruction technique. COMPARISON: April 24, 2019 FINDINGS: Brain: Unremarkable. No acute intracranial hemorrhage, edema or abnormal mass-effect. Ventricles: Unremarkable. No ventriculomegaly. Bones/joints: Unremarkable. No acute fracture. Soft tissues: Unremarkable. Sinuses: Unremarkable as visualized. No acute sinusitis. Mastoid air cells: Unremarkable as visualized. No mastoid effusion. IMPRESSION: Negative head/brain CT.
--- NOTE | 2020-02-17 05:20 | ED ---
Fall HPI - General Chief Complaint: Fall Stated Complaint: Fall,back/neck pain Time Seen by Provider: 02/17/20 03:24 Source: patient Mode of arrival: wheelchair - History of Present Illness MD Complaint: fall -: hour(s) Fall From: standing When Fall Occurred: 1-[address] Fall Occurred: home Loss of Consciousness: none Prolonged Down Time?: no Location: back Severity: moderate Quality: dull Context: tripped/slipped Associated Symptoms: denies - Related Data Home Medications Medication Instructions Recorded Confirmed EPINEPHrine [Epipen 2-Mike] 0.3 mg IM ONCE PRN 10/16/18 02/07/20 metFORMIN HCL [metFORMIN HCL ER] 750 mg PO W/SUPPER 02/07/19 02/07/20 Propranolol HCl 20 mg PO BID 05/08/19 02/07/20 SUMAtriptan succinate [Imitrex] 50 mg PO DAILY PRN 05/08/19 02/07/20 Topiramate [Topamax] 50 mg PO BID 05/08/19 02/07/20 tiZANidine [Zanaflex] 4 mg PO DAILY PRN 05/08/19 02/07/20 Albuterol Inhaler [Ventolin Hfa 2 puff INHALATION RT-Q4H PRN 10/17/19 02/07/20 Inhaler] Fenofibrate Nanocrystallized 145 mg PO DAILY 10/17/19 02/07/20 [Fenofibrate] Fish Oil/Dha/Epa [Fish Oil 1,200 1 cap PO DAILY 10/17/19 02/07/20 mg Fish Oil] Melatonin 5 mg PO HS 10/17/19 02/07/20 QUEtiapine FUMARATE [SEROquel] 400 mg PO HS 10/17/19 02/07/20 Cyanocobalamin (Vitamin B-12) 1,000 mcg PO DAILY 02/07/20 02/07/20 [Vitamin B-12] Previous Rx's Medication Instructions Recorded Omeprazole [PriLOSEC] 40 mg PO DAILY #14 cap 11/21/19 Ondansetron Odt [Zofran Odt] 4 mg PO Q8HR PRN #10 tab 11/21/19 Naproxen 500 mg PO BID #14 tablet 02/17/20 Allergies Allergy/AdvReac Type Severity Reaction Status Date / Time bee pollen Allergy Severe Anaphylaxis Verified 02/17/20 03:14 haloperidol [From Haldol] Allergy Severe QUIT Verified 02/17/20 03:14 BREATHING haloperidol lactate Allergy Severe QUIT Verified 02/17/20 03:14 [From Haldol] BREATHING latex Allergy Severe RASH-THROAT Verified 02/17/20 03:14 CLOSES tramadol Allergy Severe Nausea & Verified 02/17/20 03:14 Vomiting prednisone Allergy THROAT Verified 02/17/20 03:14 SWELLS spider venom Allergy Swelling Verified 02/17/20 03:14 Sulfa (Sulfonamide Allergy THROAT Verified 02/17/20 03:14 Antibiotics) SWELLS promethazine HCl AdvReac Severe Nausea & Verified 02/17/20 03:14 [From Phenergan] Vomiting amoxicillin AdvReac Nausea & Verified 02/17/20 03:14 Vomiting WASP Allergy Severe Swelling Uncoded 02/17/20 03:14 ANTS Allergy Mild Anaphylaxis Uncoded 02/17/20 03:14 Review of Systems ROS Statement: Those systems with pertinent positive or pertinent negative responses have been documented in the HPI. ROS Other: All systems not noted in ROS Statement are negative. Constitutional: Denies: fever, chills Respiratory: Denies: cough, dyspnea Cardiovascular: Denies: chest pain Gastrointestinal: Denies: abdominal pain, nausea, vomiting Genitourinary: Denies: dysuria, hematuria Musculoskeletal: Reports: as per HPI, back pain Skin: Denies: rash Neurological: Denies: headache, weakness, numbness Past Medical History Past Medical History: Asthma, Diabetes Mellitus, GERD/Reflux Additional Past Medical History / Comment(s): migraines, degenerative disk disease, endometriosis, lupus, pancreatitis History of Any Multi-Drug Resistant Organisms: None Reported Past Surgical History: Orthopedic Surgery Additional Past Surgical History / Comment(s): laparoscopc surgery for endometriosis, cyst removed from left foot, EGD Past Anesthesia/Blood Transfusion Reactions: Previous Problems w/ Anesthesia Additional Past Anesthesia/Blood Transfusion Reaction / Comment(s): hard to wake up for 48-72 hours after laparoscopic surgery-was in hosp. for 3 days Past Psychological History: Anxiety, Depression, PTSD Smoking Status: Never smoker Past Alcohol Use History: None Reported Past Drug Use History: None Reported - Past Family History Mother Family Medical History: No Reported History Additional Family Medical History / Comment(s): hx migraines Father Family Medical History: Coronary Artery Disease (CAD), Hypertension Additional Family Medical History / Comment(s): ddd, alcoholism & drug use General Exam Limitations: no limitations General appearance: alert, in no apparent distress Head exam: Present: atraumatic, normocephalic Eye exam: Present: normal appearance. Absent: scleral icterus, conjunctival injection Neck exam: Present: normal inspection Respiratory exam: Present: normal lung sounds bilaterally. Absent: respiratory distress, wheezes, rales, rhonchi, stridor Cardiovascular Exam: Present: regular rate, normal rhythm, normal heart sounds. Absent: systolic murmur, diastolic murmur, rubs, gallop GI/Abdominal exam: Present: soft. Absent: distended, tenderness, guarding, rebound Extremities exam: Present: normal inspection, normal capillary refill. Absent: pedal edema, calf tenderness Back exam: Present: normal inspection, paraspinal tenderness. Absent: CVA tenderness (R), CVA tenderness (L), vertebral tenderness Neurological exam: Present: alert Skin exam: Present: warm, dry, intact, normal color. Absent: rash Course Vital Signs 02/17/20 02/17/20 02/17/20 03:12 04:00 06:01 Temperature 98.1 F 97.4 F L Pulse Rate 115 H 87 105 H Respiratory 22 19 19 Rate Blood Pressure 115/81 118/70 117/72 O2 Sat by Pulse 97 100 98 Oximetry Disposition Clinical Impression: Fall, Closed injury of head, Low back pain Disposition: HOME SELF-CARE Condition: Good Instructions (If sedation given, give patient instructions): Head Injury (ED), Acute Low Back Pain (ED) Prescriptions: Naproxen 500 mg PO BID #14 tablet Is patient prescribed a controlled substance at d/c from ED?: No Referrals: Isi Carolina MD [Primary Care Provider] - 1-2 days
[2020-02-17 05:35] VITALS: RESP 19
[2020-02-17] MEDS ORDERED: HYDROcodone/APAP 5-325MG 1 EACH TAB PO STA (05:45)
[2020-02-17 06:19] VITALS: BP 117/72; PULSE 105; TEMP 97.4
== END 2020-02-17 06:01 | disposition home or self-care (01) ==
LOC: EC 03:08
DX: S09.90XA Unspecified injury of head, initial encounter (principal); M54.5 Low back pain; J45.909 Unspecified asthma, uncomplicated; E11.9 Type 2 diabetes mellitus without complications; K21.9 Gastro-esophageal reflux disease without esophagitis; F41.9 Anxiety disorder, unspecified; F32.9 Major depressive disorder, single episode, unspecified; Z79.84 Long term (current) use of oral hypoglycemic drugs; Z79.899 Other long term (current) drug therapy; Z91.030 Bee allergy status; Z88.8 Allergy status to other drugs, medicaments and biological substances; Z91.040 Latex allergy status; Z88.5 Allergy status to narcotic agent; Z91.038 Other insect allergy status; Z88.2 Allergy status to sulfonamides; Z88.0 Allergy status to penicillin; W01.0XXA Fall on same level from slipping, tripping and stumbling without subsequent striking against object, initial encounter; Y92.009 Unspecified place in unspecified non-institutional (private) residence as the place of occurrence of the external cause
CPT/HCPCS: 72100; 70450; 99284; 96372; J1885

== ENCOUNTER 2020-02-26 22:20 | Emergency (ER) | payer OTHER ==
[2020-02-26 22:26] VITALS: RESP 18
[2020-02-26] MEDS ORDERED: SODIUM CHLORIDE 0.9% 1,000 ML IV STA (22:46)
[2020-02-26] MEDS ORDERED: SODIUM CHLORIDE 0.9% 500 ML 500 ML IV STA (22:46)
[2020-02-26 23:15] LABS: Basophils # (A) 0.1 k/uL (0-0.2); Basophils % (A) 1 %; Eosinophils # (A) 0.1 k/uL (0-0.7); Eosinophils % (A) 2 %; HCT 41.8 % (34.0-46.0); HGB 14.5 gm/dL (11.4-16.0); Lymphocytes # (A) 3.5 k/uL (1.0-4.8); Lymphocytes % (A) 44 %; MCH 32.5 pg (25.0-35.0); MCHC 34.7 g/dL (31.0-37.0); MCV 93.7 fL (80.0-100.0); Mean Platelet Volume 7.9; Monocytes # (A) 0.3 k/uL (0-1.0); Monocytes % (A) 4 %; Neutrophils # (A) 3.9 k/uL (1.3-7.7); Neutrophils % (A) 49 %; Platelet Count 281 k/uL (150-450); RBC 4.46 m/uL (3.80-5.40); RDW 12.9 % (11.5-15.5); WBC 7.9 k/uL (3.8-10.6)
[2020-02-26 23:31] LABS: ALT 37 U/L (4-34); AST 73 U/L (14-36); African American GFR (CKD) >90 (>60 ml/min/1.73 sqM); Albumin 4.4 g/dL (3.5-5.0); Alkaline Phosphatase 70 U/L (38-126); Anion Gap 10 mmol/L; Blood Urea Nitrogen 14 mg/dL (7-17); Calcium 10.4 mg/dL (8.4-10.2); Carbon Dioxide 20 mmol/L (22-30); Chloride 107 mmol/L (98-107); Creatine Kinase 57 U/L (30-135); Glucose 168 mg/dL (74-99); Lipase 190 U/L (23-300); Magnesium 2.1 mg/dL (1.6-2.3); Non-African American GFR(CKD) 82 (>60 ml/min/1.73 sqM); Potassium 4.2 mmol/L (3.5-5.1); Sodium 137 mmol/L (137-145); Total Bilirubin 0.4 mg/dL (0.2-1.3); Total Protein 8.2 g/dL (6.3-8.2)
[2020-02-26 23:34] LABS: Partial Thromboplastin Time 22.1 sec (22.0-30.0); Prothrombin Time 10.2 sec (9.0-12.0)
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
[2020-02-26 23:56] LABS: Appearance,Urine Cloudy (Clear); Bacteria,Urine Occasional /hpf; Bilirubin,Urine Negative (Negative); Blood,Urine Trace (Negative); Color,Urine Yellow; Glucose,Urine (UA) 3+ (Negative); Hyaline Casts,Urine 1 /lpf (0-2); Ketones,Urine Trace (Negative); Leukocyte Esterase,Urine Moderate (Negative); Mucus,Urine Moderate /hpf; Nitrite,Urine Negative (Negative); PH, Urine 6.5 (5.0-8.0); Protein,Urine 1+ (Negative); RBC,Urine 3 /hpf (0-5); Specific Gravity,Urine 1.033 (1.001-1.035); Squamous Epithelial Cell,Urine 6 /hpf (0-4); WBC,Urine 11 /hpf (0-5)
--- NOTE | 2020-02-27 00:57 | CT ---
EXAM: CT Abdomen and Pelvis With Intravenous Contrast CLINICAL HISTORY: ITS.REASON CT Reason: pain TECHNIQUE: Axial computed tomography images of the abdomen and pelvis with intravenous contrast. CTDI is 31.47 mGy and DLP is 1513.4 mGy-cm. This CT exam was performed using one or more of the following dose reduction techniques: automated exposure control, adjustment of the mA and/or kV according to patient size, and/or use of iterative reconstruction technique. COMPARISON: MRCP on 08/30/2019 FINDINGS: Lung bases: Unremarkable. No mass. No consolidation. Mediastinum: Small amount of fluid in the distal esophagus. ABDOMEN: Liver: Hepatic steatosis. Hepatomegaly. Gallbladder and bile ducts: Underdistended gallbladder. No calcified stones. No ductal dilation. Pancreas: Unremarkable. No mass. No ductal dilation. Spleen: Small splenule. Adrenals: Unremarkable. No mass. Kidneys and ureters: No hydronephrosis or obstructing. Stomach and bowel: Large amount of stool in the colon may represent constipation. No bowel obstruction. No mucosal thickening. PELVIS: Appendix: Normal appendix. Bladder: Mild prominence of the bladder wall is nonspecific. Please correlate with urinalysis if concerned for cystitis. Reproductive: Unremarkable as visualized. ABDOMEN and PELVIS: Intraperitoneal space: Unremarkable. No free air. No significant fluid collection. Bones/joints: No acute fracture. No dislocation. Soft tissues: Unremarkable. Vasculature: Unremarkable. No abdominal aortic aneurysm. Lymph nodes: Unremarkable. No enlarged lymph nodes. IMPRESSION: 1. Hepatic steatosis. Hepatomegaly. 2. Large amount of stool in the colon may represent constipation. No bowel obstruction. 3. Mild prominence of the bladder wall is nonspecific. Please correlate with urinalysis if concerned for cystitis.
[2020-02-27] MEDS ORDERED: SODIUM CHLORIDE 0.9% 1,000 ML IV STA (01:09)
[2020-02-27] MEDS ORDERED: SENNOSIDES-DOCUSATE SODIUM 1 EACH TAB PO STA (01:09)
[2020-02-27] MEDS ORDERED: KETOROLAC 15 MG/ML 1 ML VIAL IVP STA (01:22)
[2020-02-27] MEDS ORDERED: MORPHINE SULFATE 4 MG/ML SYRINGE IVP STA (01:22)
[2020-02-27 02:52] VITALS: BP 116/66; PULSE 119; TEMP 98
[2020-02-28 14:11] LABS: C. trachomatis,PCR Negative (Neg,Equiv); Chlamydia trachomatis Source Urine; N. gonorrhoeae,PCR Negative (Neg,Equiv); Neisseria Source Urine
== END 2020-02-27 02:56 | disposition home or self-care (01) ==
LOC: EC 22:20
DX: K92.1 Melena (principal); K59.00 Constipation, unspecified; R10.9 Unspecified abdominal pain; R11.0 Nausea; J45.909 Unspecified asthma, uncomplicated; E11.9 Type 2 diabetes mellitus without complications; G43.909 Migraine, unspecified, not intractable, without status migrainosus; F41.9 Anxiety disorder, unspecified; F43.10 Post-traumatic stress disorder, unspecified; F32.9 Major depressive disorder, single episode, unspecified; Z79.899 Other long term (current) drug therapy; Z79.84 Long term (current) use of oral hypoglycemic drugs; Z79.890 Hormone replacement therapy; Z91.030 Bee allergy status; Z88.8 Allergy status to other drugs, medicaments and biological substances; Z91.040 Latex allergy status; Z88.5 Allergy status to narcotic agent; Z88.2 Allergy status to sulfonamides; Z88.0 Allergy status to penicillin; Z91.038 Other insect allergy status
CPT/HCPCS: 36415; 86900; 86901; 80053; 82550; 83690; 83735; 85025; 85610; 85730; 86850; 81001; 81025; 87491; 87591; 87086; 74177; 99285; 96365; 96375 ×2; 96361 ×2; J2270; J0696; J1885; Q9967; 96374

== ENCOUNTER 2020-03-04 17:16 | Emergency (ER) | payer OTHER ==
[2020-03-04 17:24] VITALS: RESP 18; TEMP 98.1
[2020-03-04] MEDS ORDERED: SODIUM CHLORIDE 0.9% 1,000 ML IV STA (18:14)
[2020-03-04] MEDS ORDERED: ONDANSETRON 4 MG/2 ML VIAL IVP STA (18:15)
[2020-03-04] MEDS ORDERED: KETOROLAC 15 MG/ML 1 ML VIAL IVP STA (18:15)
[2020-03-04 19:03] LABS: Basophils # (A) 0.1 k/uL (0-0.2); Basophils % (A) 1 %; Eosinophils # (A) 0.1 k/uL (0-0.7); Eosinophils % (A) 1 %; HCT 40.3 % (34.0-46.0); HGB 13.8 gm/dL (11.4-16.0); Lymphocytes # (A) 3.3 k/uL (1.0-4.8); Lymphocytes % (A) 43 %; MCHC 34.3 g/dL (31.0-37.0); MCV 93.4 fL (80.0-100.0); Mean Platelet Volume 7.5; Monocytes # (A) 0.2 k/uL (0-1.0); Monocytes % (A) 3 %; Neutrophils # (A) 3.9 k/uL (1.3-7.7); Neutrophils % (A) 51 %; Platelet Count 274 k/uL (150-450); RBC 4.31 m/uL (3.80-5.40); RDW 12.9 % (11.5-15.5); WBC 7.8 k/uL (3.8-10.6)
[2020-03-04 19:04] LABS: Appearance,Urine Clear (Clear); Bacteria,Urine Many /hpf; Bilirubin,Urine Negative (Negative); Blood,Urine Negative (Negative); Color,Urine Yellow; Glucose,Urine (UA) 4+ (Negative); Hyaline Casts,Urine 1 /lpf (0-2); Ketones,Urine Negative (Negative); Leukocyte Esterase,Urine Small (Negative); Mucus,Urine Rare /hpf; Nitrite,Urine Negative (Negative); PH, Urine 6.5 (5.0-8.0); Protein,Urine Negative (Negative); RBC,Urine 1 /hpf (0-5); Specific Gravity,Urine 1.014 (1.001-1.035); Squamous Epithelial Cell,Urine 2 /hpf (0-4); Urobilinogen,Urine <2.0 mg/dL (<2.0); WBC,Urine 2 /hpf (0-5)
--- NOTE | 2020-03-04 19:15 | ED ---
General Adult HPI - General Chief complaint: Dizziness Stated complaint: dizziness/lightheaded Time Seen by Provider: 03/04/20 17:54 Source: patient Mode of arrival: ambulatory Limitations: no limitations - History of Present Illness Initial comments: Patient is a 29-year-old female, well-known to this ER for multiple visits, presenting to the emergency Department with complaints of a headache, some lightheadedness as well as some abdominal discomfort, that all started today. Patient states she started having a headache and then when she sat up or stood up she felt lightheaded. Patient is also complaining of abdominal discomfort and nausea. Patient states she always has nausea. She was just recently here for abdominal pain and rectal bleeding and was told to follow up with her PCP. Patient states she is unable to get an appointment until the end of March. Patient states she has had a few more episodes of blood in her stool. She den ies any fever, chills, diarrhea. She describes her pain as on the right side of her abdomen, in the middle with no radiation. She states this is not all the time, intermittent. She denies any chest pain, shortness of breath. She has no further complaints at this time. Upon arrival to the ER, her vitals are stable. - Related Data Home Medications Medication Instructions Recorded Confirmed EPINEPHrine [Epipen 2-Mike] 0.3 mg IM ONCE PRN 10/16/18 03/04/20 metFORMIN HCL [metFORMIN HCL ER] 750 mg PO AC-SUPPER 02/07/19 03/04/20 Propranolol HCl 40 mg PO HS 05/08/19 03/04/20 SUMAtriptan succinate [Imitrex] 50 mg PO DAILY PRN 05/08/19 03/04/20 Topiramate [Topamax] 100 mg PO HS 05/08/19 03/04/20 tiZANidine [Zanaflex] 4 mg PO BID PRN 05/08/19 03/04/20 Albuterol Inhaler [Ventolin Hfa 2 puff INHALATION RT-Q4H PRN 10/17/19 03/04/20 Inhaler] Fenofibrate Nanocrystallized 145 mg PO HS 10/17/19 03/04/20 [Fenofibrate] Fish Oil/Dha/Epa [Fish Oil 1,200 1 cap PO HS 10/17/19 03/04/20 mg Fish Oil] Melatonin 5 mg PO HS 10/17/19 03/04/20 Cyanocobalamin (Vitamin B-12) 1,000 mcg PO HS 02/07/20 03/04/20 [Vitamin B-12] Omeprazole [PriLOSEC] 40 mg PO HS 03/04/20 03/04/20 traZODone HCL 100 mg PO HS 03/04/20 03/04/20 Previous Rx's Medication Instructions Recorded Ondansetron Odt [Zofran Odt] 4 mg PO Q8HR PRN #10 tab 11/21/19 Allergies Allergy/AdvReac Type Severity Reaction Status Date / Time bee pollen Allergy Severe Anaphylaxis Verified 03/04/20 19:25 haloperidol [From Haldol] Allergy Severe QUIT Verified 03/04/20 19:25 BREATHING haloperidol lactate Allergy Severe QUIT Verified 03/04/20 19:25 [From Haldol] BREATHING latex Allergy Severe RASH-THROAT Verified 03/04/20 19:25 CLOSES tramadol Allergy Severe Nausea & Verified 03/04/20 19:25 Vomiting prednisone Allergy THROAT Verified 03/04/20 19:25 SWELLS spider venom Allergy Swelling Verified 03/04/20 19:25 Sulfa (Sulfonamide Allergy THROAT Verified 03/04/20 19:25 Antibiotics) SWELLS venom-wasp Allergy Swelling Verified 03/04/20 19:25 venom-wasp protein Allergy Swelling Verified 03/04/20 19:25 promethazine HCl AdvReac Severe Nausea & Verified 03/04/20 19:25 [From Phenergan] Vomiting amoxicillin AdvReac Nausea & Verified 03/04/20 19:25 Vomiting ANTS Allergy Mild Anaphylaxis Uncoded 03/04/20 19:25 Review of Systems ROS Statement: Those systems with pertinent positive or pertinent negative responses have been documented in the HPI. ROS Other: All systems not noted in ROS Statement are negative. Past Medical History Past Medical History: Asthma, Diabetes Mellitus, GERD/Reflux Additional Past Medical History / Comment(s): migraines, degenerative disk disease, endometriosis, lupus, pancreatitis History of Any Multi-Drug Resistant Organisms: None Reported Past Surgical History: Orthopedic Surgery Additional Past Surgical History / Comment(s): laparoscopc surgery for endometriosis, cyst removed from left foot, EGD Past Anesthesia/Blood Transfusion Reactions: Previous Problems w/ Anesthesia Additional Past Anesthesia/Blood Transfusion Reaction / Comment(s): hard to wake up for 48-72 hours after laparoscopic surgery-was in hosp. for 3 days Past Psychological History: Anxiety, Depression, PTSD Smoking Status: Never smoker Past Alcohol Use History: None Reported Past Drug Use History: None Reported - Past Family History Mother Family Medical History: No Reported History Additional Family Medical History / Comment(s): hx migraines Father Family Medical History: Coronary Artery Disease (CAD), Hypertension Additional Family Medical History / Comment(s): ddd, alcoholism & drug use General Exam - General Exam Comments Initial Comments: GENERAL: Patient is well-developed and well-nourished. Patient is nontoxic and in no acute distress. HEAD: Atraumatic, normocephalic. EYES: Pupils equal round and reactive to light, extraocular movements intact, sclera anicteric, conjunctiva are normal. Eyelids were unremarkable. ENT: TMs normal, nares patent, oropharynx clear without exudates. Moist mucous membranes. NECK: Normal range of motion, supple without lymphadenopathy or JVD. LUNGS: Unlabored respirations. Breath sounds clear to auscultation bilaterally and equal. No wheezes rales or rhonchi. HEART: Regular rate and rhythm without murmurs, rubs or gallops. ABDOMEN: Generalized abdominal discomfort, no specific area pain. Soft, normoactive bowel sounds. No guarding, no rebound. No masses appreciated. : Deferred MUSCULOSKELETAL: Normal extremities with adequate strength and normal range of motion, no pitting or edema. No clubbing or cyanosis. NEUROLOGICAL: Patient is alert and oriented x 3. Motor and sensory are also intact. Cranial nerves II through XII grossly intact. Symmetrical smile. Normal speech, normal gait. PSYCH: Normal mood, normal affect. SKIN: Warm, Dry, normal turgor, no rashes or lesions noted. Limitations: no limitations Course Vital Signs 03/04/20 03/04/20 17:22 20:51 Temperature 98.1 F Pulse Rate 72 82 Respiratory 18 18 Rate Blood Pressure 106/72 111/78 O2 Sat by Pulse 100 98 Oximetry EKG Findings - EKG Comments: EKG Findings:: Normal sinus rhythm, no signs of acute ischemia. Ventricular rate 71, ME interval 154, QT 392. Medical Decision Making - Medical Decision Making Patient is a 29-year-old female, well-known to the ER for frequent visits, presenting with a headache, lightheadedness, abdominal discomfort for the past 1-2 days. Her vital signs are stable upon arrival. Her exam shows no acute findings, no neural deficits. Her EKG is normal. Labs show a normal white count, her glucose is 172. Urine does show 4+ glucose, many bacteria, urine hCG is not detected. Covid test is negative. KUB shows no acute process. Patient recently had computed tomography scan of her abdomen, this was reviewed. Patient was given fluids and pain control. She reports improvement in her symptoms. I discussed the patient and she is to follow-up with her PCP regarding her chronic headaches and chronic abdominal pain. She is in agreement with this plan of care. Return parameters were discussed with the patient and she verbalized understanding. Case discussed with Dr. Ray. - Lab Data Result diagrams: 03/04/20 18:29 03/04/20 18:29 Lab Results 03/04/20 03/04/20 03/04/20 Range/Units 18:29 18:29 18:29 WBC 7.8 (3.8-10.6) k/uL RBC 4.31 (3.80-5.40) m/uL Hgb 13.8 (11.4-16.0) gm/dL Hct 40.3 (34.0-46.0) % MCV 93.4 (80.0-100.0) fL MCH 32.0 (25.0-35.0) pg MCHC 34.3 (31.0-37.0) g/dL RDW 12.9 (11.5-15.5) % Plt Count 274 (150-450) k/uL MPV 7.5 Neutrophils % 51 % Lymphocytes % 43 % Monocytes % 3 % Eosinophils % 1 % Basophils % 1 % Neutrophils # 3.9 (1.3-7.7) k/uL Lymphocytes # 3.3 (1.0-4.8) k/uL Monocytes # 0.2 (0-1.0) k/uL Eosinophils # 0.1 (0-0.7) k/uL Basophils # 0.1 (0-0.2) k/uL Sodium (137-145) mmol/L Potassium (3.5-5.1) mmol/L Chloride (98-107) mmol/L Carbon Dioxide (22-30) mmol/L Anion Gap mmol/L BUN (7-17) mg/dL Creatinine (0.52-1.04) mg/dL Est GFR (CKD-EPI)AfAm (>60 ml/min/1.73 sqM) Est GFR (CKD-EPI)NonAf (>60 ml/min/1.73 sqM) Glucose (74-99) mg/dL Plasma Lactic Acid Aurelio (0.7-2.0) mmol/L Calcium (8.4-10.2) mg/dL Total Bilirubin (0.2-1.3) mg/dL AST (14-36) U/L ALT (4-34) U/L Alkaline Phosphatase (38-126) U/L Total Protein (6.3-8.2) g/dL Albumin (3.5-5.0) g/dL Urine Color Yellow Urine Appearance Clear (Clear) Urine pH 6.5 (5.0-8.0) Ur Specific [place] 1.014 (1.001-1.035) Urine Protein Negative (Negative) Urine Glucose (UA) 4+ H (Negative) Urine Ketones Negative (Negative) Urine Blood Negative (Negative) Urine Nitrite Negative (Negative) Urine Bilirubin Negative (Negative) Urine Urobilinogen <2.0 (<2.0) mg/dL Ur Leukocyte Esterase Small H (Negative) Urine RBC 1 (0-5) /hpf Urine WBC 2 (0-5) /hpf Ur Squamous Epith Cells 2 (0-4) /hpf Urine Bacteria Many H (None) /hpf Hyaline Casts 1 (0-2) /lpf Urine Mucus Rare H (None) /hpf Urine HCG, Qual Not Detected (Not Detectd) Coronavirus (PCR) (Not Detectd) 03/04/20 03/04/20 03/04/20 Range/Units 18:29 18:29 18:29 WBC (3.8-10.6) k/uL RBC (3.80-5.40) m/uL Hgb (11.4-16.0) gm/dL Hct (34.0-46.0) % MCV (80.0-100.0) fL MCH (25.0-35.0) pg MCHC (31.0-37.0) g/dL RDW (11.5-15.5) % Plt Count (150-450) k/uL MPV Neutrophils % % Lymphocytes % % Monocytes % % Eosinophils % % Basophils % % Neutrophils # (1.3-7.7) k/uL Lymphocytes # (1.0-4.8) k/uL Monocytes # (0-1.0) k/uL Eosinophils # (0-0.7) k/uL Basophils # (0-0.2) k/uL Sodium 132 L (137-145) mmol/L Potassium 4.4 (3.5-5.1) mmol/L Chloride 104 (98-107) mmol/L Carbon Dioxide 20 L (22-30) mmol/L Anion Gap 8 mmol/L BUN 13 (7-17) mg/dL Creatinine 1.05 H (0.52-1.04) mg/dL Est GFR (CKD-EPI)AfAm 84 (>60 ml/min/1.73 sqM) Est GFR (CKD-EPI)NonAf 72 (>60 ml/min/1.73 sqM) Glucose 172 H (74-99) mg/dL Plasma Lactic Acid Aurelio 1.3 (0.7-2.0) mmol/L Calcium 10.6 H (8.4-10.2) mg/dL Total Bilirubin 0.5 (0.2-1.3) mg/dL AST 47 H (14-36) U/L ALT 32 (4-34) U/L Alkaline Phosphatase 62 (38-126) U/L Total Protein 7.8 (6.3-8.2) g/dL Albumin 4.1 (3.5-5.0) g/dL Urine Color Urine Appearance (Clear) Urine pH (5.0-8.0) Ur Specific [place] (1.001-1.035) Urine Protein (Negative) Urine Glucose (UA) (Negative) Urine Ketones (Negative) Urine Blood (Negative) Urine Nitrite (Negative) Urine Bilirubin (Negative) Urine Urobilinogen (<2.0) mg/dL Ur Leukocyte Esterase (Negative) Urine RBC (0-5) /hpf Urine WBC (0-5) /hpf Ur Squamous Epith Cells (0-4) /hpf Urine Bacteria (None) /hpf Hyaline Casts (0-2) /lpf Urine Mucus (None) /hpf Urine HCG, Qual (Not Detectd) Coronavirus (PCR) Not Detected (Not Detectd) Disposition Clinical Impression: Headache, Dehydration Disposition: HOME SELF-CARE Condition: Stable Instructions (If sedation given, give patient instructions): Acute Headache (ED) Additional Instructions: Please return to the Emergency Department if symptoms worsen or any other concerns. Increase water intake. Tylenol and/or Motrin for further headache. Follow-up with your PCP for further testing and medications. Is patient prescribed a controlled substance at d/c from ED?: No Referrals: Isi Carolina MD [Primary Care Provider] - 1-2 days
--- NOTE | 2020-03-04 19:16 | XR ---
EXAMINATION TYPE: XR KUB DATE OF EXAM: 03/04/2020 COMPARISON: NONE HISTORY: Pain TECHNIQUE: 2 views FINDINGS: 2 views upright were obtained. There is no sign of intestinal obstruction or pneumoperitone um. Fecal pattern is normal. There is no evidence of a mass. There are no pathologic calcifications o diego the kidneys. IMPRESSION: Nonacute abdomen.
[2020-03-04 19:20] LABS: Albumin 4.1 g/dL (3.5-5.0); Calcium 10.6 mg/dL (8.4-10.2); Potassium 4.4 mmol/L (3.5-5.1); Total Bilirubin 0.5 mg/dL (0.2-1.3); Total Protein 7.8 g/dL (6.3-8.2)
[2020-03-04] MEDS ORDERED: MORPHINE SULFATE 4 MG/ML SYRINGE IVP STA (20:08)
[2020-03-04 20:52] VITALS: BP 111/78; PULSE 82
== END 2020-03-04 21:03 | disposition home or self-care (01) ==
LOC: EC 17:16
DX: E86.0 Dehydration (principal); G43.909 Migraine, unspecified, not intractable, without status migrainosus; G89.29 Other chronic pain; R10.9 Unspecified abdominal pain; E11.9 Type 2 diabetes mellitus without complications; J45.909 Unspecified asthma, uncomplicated; K21.9 Gastro-esophageal reflux disease without esophagitis; F32.9 Major depressive disorder, single episode, unspecified; F41.9 Anxiety disorder, unspecified; Z79.899 Other long term (current) drug therapy; Z79.84 Long term (current) use of oral hypoglycemic drugs; Z79.890 Hormone replacement therapy; Z91.030 Bee allergy status; Z91.040 Latex allergy status; Z88.2 Allergy status to sulfonamides; Z88.5 Allergy status to narcotic agent; Z88.8 Allergy status to other drugs, medicaments and biological substances; Z91.038 Other insect allergy status; Z88.0 Allergy status to penicillin; Z20.828 Contact with and (suspected) exposure to other viral communicable diseases
CPT/HCPCS: 36415; 93005; 80053; 83605; 85025; 81001; 81025; 87086; 87635; 74018; 99284; 96374; 96375 ×2; 96361 ×2; J2270; J2405; J1885

== ENCOUNTER 2020-03-18 10:05 | Emergency (ER) | payer OTHER ==
[2020-03-18] MEDS ORDERED: diphenhydrAMINE 50 MG/ML 1 ML VIAL IVP STA ×2 (10:31→10:33)
[2020-03-18] MEDS ORDERED: METOCLOPRAMIDE 5 MG/ML 2 ML VIAL IVP STA (10:31)
[2020-03-18] MEDS ORDERED: SODIUM CHLORIDE 0.9% 1,000 ML IV STA (10:31)
[2020-03-18] MEDS ORDERED: KETOROLAC 15 MG/ML 1 ML VIAL IVP STA (10:31)
--- NOTE | 2020-03-18 10:38 | ED ---
General Adult HPI - General Chief complaint: Headache Stated complaint: Migrane,Nausea Time Seen by Provider: 03/18/20 10:21 Source: patient, RN notes reviewed, old records reviewed Mode of arrival: ambulatory Limitations: no limitations - History of Present Illness Initial comments: 29 year old female patient to ED to for chief complaint of migraine headache. Patient reports that she woke up with a headache around midnight. Reports it is in her left frontal region. States that it is similar to her migraine headaches in the past. Reports some nausea without emesis. Denies any chance of . Denies any neck stiffness. Patient has had prior CTs and MRIs of the brain. She is declining any intracranial imaging today. She denies any other acute complaints. Systemic: Pt denies fatigue, fever/chills, rash. Pt denies weakness, night sweats, weight loss. Neuro: Pt denies syncope or pre-syncope. HEENT: Pt denies ocular discharge or irritation, otalgia, rhinorrhea, pharyngitis or notable lymphadenopathy. Cardiopulmonary: Pt denies chest pain, SOB, heart palpitations, dyspnea on exertion. Abdominal/GI: Pt denies abdominal pain, n/v/d. : Pt denies dysuria, burning w/ urination, frequency/urgency. Denies new onset urinary or bowel incontinence. MSK: Pt denies myalgia, loss of strength or function in extremities. Neuro: Pt denies new onset weakness, paresthesias. - Related Data Home Medications Medication Instructions Recorded Confirmed EPINEPHrine [Epipen 2-Mike] 0.3 mg IM ONCE PRN 10/16/18 03/04/20 metFORMIN HCL [metFORMIN HCL ER] 750 mg PO AC-SUPPER 02/07/19 03/04/20 Propranolol HCl 40 mg PO 05/08/19 03/04/20 SUMAtriptan succinate [Imitrex] 50 mg PO DAILY PRN 05/08/19 03/04/20 Topiramate [Topamax] 100 mg PO HS 05/08/19 03/04/20 tiZANidine [Zanaflex] 4 mg PO BID PRN 05/08/19 03/04/20 Albuterol Inhaler [Ventolin Hfa 2 puff INHALATION RT-Q4H PRN 10/17/19 03/04/20 Inhaler] Fenofibrate Nanocrystallized 145 mg PO HS 10/17/19 03/04/20 [Fenofibrate] Fish Oil/Dha/Epa [Fish Oil 1,200 1 cap PO HS 10/17/19 03/04/20 mg Fish Oil] Melatonin 5 mg PO HS 10/17/19 03/04/20 Cyanocobalamin (Vitamin B-12) 1,000 mcg PO HS 02/07/20 03/04/20 [Vitamin B-12] Omeprazole [PriLOSEC] 40 mg PO HS 03/04/20 03/04/20 traZODone HCL 100 mg PO HS 03/04/20 03/04/20 Previous Rx's Medication Instructions Recorded Ondansetron Odt [Zofran Odt] 4 mg PO Q8HR PRN #10 tab 11/21/19 Allergies Allergy/AdvReac Type Severity Reaction Status Date / Time bee pollen Allergy Severe Anaphylaxis Verified 03/18/20 10:20 haloperidol [From Haldol] Allergy Severe QUIT Verified 03/18/20 10:20 BREATHING haloperidol lactate Allergy Severe QUIT Verified 03/18/20 10:20 [From Haldol] BREATHING latex Allergy Severe RASH-THROAT Verified 03/18/20 10:20 CLOSES tramadol Allergy Severe Nausea & Verified 03/18/20 10:20 Vomiting prednisone Allergy THROAT Verified 03/18/20 10:20 SWELLS spider venom Allergy Swelling Verified 03/18/20 10:20 Sulfa (Sulfonamide Allergy THROAT Verified 03/18/20 10:20 Antibiotics) SWELLS venom-wasp Allergy Swelling Verified 03/18/20 10:20 venom-wasp protein Allergy Swelling Verified 03/18/20 10:20 promethazine HCl AdvReac Severe Nausea & Verified 03/18/20 10:20 [From Phenergan] Vomiting amoxicillin AdvReac Nausea & Verified 03/18/20 10:20 Vomiting ANTS Allergy Mild Anaphylaxis Uncoded 03/18/20 10:20 Review of Systems ROS Statement: Those systems with pertinent positive or pertinent negative responses have been documented in the HPI. ROS Other: All systems not noted in ROS Statement are negative. Past Medical History Past Medical History: Asthma, Diabetes Mellitus, GERD/Reflux Additional Past Medical History / Comment(s): migraines, degenerative disk disease, endometriosis, lupus, pancreatitis History of Any Multi-Drug Resistant Organisms: None Reported Past Surgical History: Orthopedic Surgery Additional Past Surgical History / Comment(s): laparoscopc surgery for endometriosis, cyst removed from left foot, EGD Past Anesthesia/Blood Transfusion Reactions: Previous Problems w/ Anesthesia Additional Past Anesthesia/Blood Transfusion Reaction / Comment(s): hard to wake up for 48-72 hours after laparoscopic surgery-was in hosp. for 3 days Past Psychological History: Anxiety, Depression, PTSD Smoking Status: Never smoker Past Alcohol Use History: None Reported Past Drug Use History: None Reported - Past Family History Mother Family Medical History: No Reported History Additional Family Medical History / Comment(s): hx migraines Father Family Medical History: Coronary Artery Disease (CAD), Hypertension Additional Family Medical History / Comment(s): ddd, alcoholism & drug use General Exam - General Exam Comments Initial Comments: Constitutional: NAD, AOX3, Pt has pleasant affect. HEENT: NC/AT, trachea midline, neck supple, no lymphadenopathy. External ears appear normal, without discharge. Mucous membranes moist. Eyes PERRLA, EOM intact. There is no scleral icterus. No pallor noted. Cardiopulmonary: RRR, no murmurs, rubs or gallops, no JVD noted. Lungs CTAB in anterior and posterior arroyo. No peripheral edema. Abdominal exam: Abdomen soft and non-distended. Abdomen non-tender to palpation in all 4 quadrants. Bowel sounds active in LLQ. No hepatosplenomegaly. No ecchymosis Neuro: CN II-XII intact. No nuchal rigidity. No raccon eyes, no caro sign, no hemotympanum. No cervical spinal tenderness. NIH 0. MSK: Sensation intact in upper and lower extremities. Full active ROM in upper and lower extremities, 5/5 stregnth. Limitations: no limitations Course Vital Signs 03/18/20 10:17 Temperature 98.1 F Pulse Rate 71 Respiratory 18 Rate Blood Pressure 98/73 O2 Sat by Pulse 99 Oximetry Medical Decision Making - Medical Decision Making 29-year-old female patient to ED for evaluation of migraine headache. Patient administered analgesia headache cocktail and is feeling much improved and requesting discharge. Will discharge the patient follow up with her primary care provider and neurologist and return for any worsening symptoms. Case discussed with Dr. Ray. Disposition Clinical Impression: Acute headache Disposition: HOME SELF-CARE Condition: Stable Instructions (If sedation given, give patient instructions): Acute Headache (ED) Additional Instructions: Follow up with PCP and neurologist tomorrow. Return to ED with any worsening symptoms. Is patient prescribed a controlled substance at d/c from ED?: No Referrals: Isi Carolina MD [Primary Care Provider] - 1-2 days
[2020-03-18 11:46] VITALS: BP 104/62; PULSE 68; RESP 19; TEMP 98.4
== END 2020-03-18 11:40 | disposition home or self-care (01) ==
LOC: EC 10:05
DX: G43.909 Migraine, unspecified, not intractable, without status migrainosus (principal); K21.9 Gastro-esophageal reflux disease without esophagitis; J45.909 Unspecified asthma, uncomplicated; E11.9 Type 2 diabetes mellitus without complications; F41.9 Anxiety disorder, unspecified; F32.9 Major depressive disorder, single episode, unspecified; Z79.899 Other long term (current) drug therapy; Z79.84 Long term (current) use of oral hypoglycemic drugs; Z79.890 Hormone replacement therapy; Z91.030 Bee allergy status; Z91.040 Latex allergy status; Z88.5 Allergy status to narcotic agent; Z88.8 Allergy status to other drugs, medicaments and biological substances; Z88.2 Allergy status to sulfonamides; Z91.038 Other insect allergy status; Z88.0 Allergy status to penicillin
CPT/HCPCS: 99283; 96374; 96375 ×2; 96361; J1200; J2765; J1885

== ENCOUNTER 2020-03-29 11:35 | Emergency (ER) | payer OTHER ==
[2020-03-29 11:39] VITALS: BP 105/69; PULSE 92; RESP 20; TEMP 98.7
[2020-03-29] MEDS ORDERED: METOCLOPRAMIDE 5 MG/ML 2 ML VIAL IVP STA (11:57)
[2020-03-29] MEDS ORDERED: diphenhydrAMINE 50 MG/ML 1 ML VIAL IVP STA (11:57)
[2020-03-29] MEDS ORDERED: SODIUM CHLORIDE 0.9% 1,000 ML IV STA (11:57)
[2020-03-29] MEDS ORDERED: KETOROLAC 15 MG/ML 1 ML VIAL IVP STA (11:57)
--- NOTE | 2020-03-29 12:08 | ED ---
General Adult HPI - General Chief complaint: Headache Stated complaint: headache Source: patient, RN notes reviewed Mode of arrival: ambulatory Limitations: no limitations - History of Present Illness Initial comments: 29-year-old female with a past medical history of migraines, asthma, diabetes mellitus presents to the emergency room for a chief complaint of migraine headache. Patient reports she has had this headache for 2 days. Patient states the headache started gradually and was not a thunderclap headache Describes it as a pressure across her forehead. She has had this exact pain several times before and it is consistent with her chronic migraines. Patient states she does take sumatriptan then as well as Topamax and propanolol for headaches but this does not seem to be helping. States she did see her china painter Dr. Whelan last week and has an appointment again next week. Patient declines imaging studies at this time stating her pain is exactly the same as previous migraines and this is not the worst headache of her life. She does admit to nausea associated with this migraine denies vomiting. Patient has no other complaints at this time including shortness of breath, chest pain, abdominal pain, nausea, headache, or visual changes. - Related Data Home Medications Medication Instructions Recorded Confirmed EPINEPHrine [Epipen 2-Mike] 0.3 mg IM ONCE PRN 10/16/18 03/04/20 metFORMIN HCL [metFORMIN HCL ER] 750 mg PO AC-SUPPER 02/07/19 03/04/20 Propranolol HCl 40 mg PO HS 05/08/19 03/04/20 SUMAtriptan succinate [Imitrex] 50 mg PO DAILY PRN 05/08/19 03/04/20 Topiramate [Topamax] 100 mg PO HS 05/08/19 03/04/20 tiZANidine [Zanaflex] 4 mg PO BID PRN 05/08/19 03/04/20 Albuterol Inhaler [Ventolin Hfa 2 puff INHALATION RT-Q4H PRN 10/17/19 03/04/20 Inhaler] Fenofibrate Nanocrystallized 145 mg PO HS 10/17/19 03/04/20 [Fenofibrate] Fish Oil/Dha/Epa [Fish Oil 1,200 1 cap PO HS 10/17/19 03/04/20 mg Fish Oil] Melatonin 5 mg PO HS 10/17/19 03/04/20 Cyanocobalamin (Vitamin B-12) 1,000 mcg PO HS 02/07/20 03/04/20 [Vitamin B-12] Omeprazole [PriLOSEC] 40 mg PO HS 03/04/20 03/04/20 traZODone HCL 100 mg PO HS 03/04/20 03/04/20 Previous Rx's Medication Instructions Recorded Ondansetron Odt [Zofran Odt] 4 mg PO Q8HR PRN #10 tab 11/21/19 Allergies Allergy/AdvReac Type Severity Reaction Status Date / Time bee pollen Allergy Severe Anaphylaxis Verified 03/29/20 11:39 haloperidol [From Haldol] Allergy Severe QUIT Verified 03/29/20 11:39 BREATHING haloperidol lactate Allergy Severe QUIT Verified 03/29/20 11:39 [From Haldol] BREATHING latex Allergy Severe RASH-THROAT Verified 03/29/20 11:39 CLOSES tramadol Allergy Severe Nausea & Verified 03/29/20 11:39 Vomiting prednisone Allergy THROAT Verified 03/29/20 11:39 SWELLS spider venom Allergy Swelling Verified 03/29/20 11:39 Sulfa (Sulfonamide Allergy THROAT Verified 03/29/20 11:39 Antibiotics) SWELLS venom-wasp Allergy Swelling Verified 03/29/20 11:39 venom-wasp protein Allergy Swelling Verified 03/29/20 11:39 promethazine HCl AdvReac Severe Nausea & Verified 03/29/20 11:39 [From Phenergan] Vomiting amoxicillin AdvReac Nausea & Verified 03/29/20 11:39 Vomiting ANTS Allergy Mild Anaphylaxis Uncoded 03/29/20 11:39 Review of Systems ROS Statement: Those systems with pertinent positive or pertinent negative responses have been documented in the HPI. ROS Other: All systems not noted in ROS Statement are negative. Past Medical History Past Medical History: Asthma, Diabetes Mellitus, GERD/Reflux Additional Past Medical History / Comment(s): migraines, degenerative disk disease, endometriosis, lupus, pancreatitis History of Any Multi-Drug Resistant Organisms: None Reported Past Surgical History: Orthopedic Surgery Additional Past Surgical History / Comment(s): laparoscopc surgery for endometriosis, cyst removed from left foot, EGD Past Anesthesia/Blood Transfusion Reactions: Previous Problems w/ Anesthesia Additional Past Anesthesia/Blood Transfusion Reaction / Comment(s): hard to wake up for 48-72 hours after laparoscopic surgery-was in hosp. for 3 days Past Psychological History: Anxiety, Depression, PTSD Smoking Status: Never smoker Past Alcohol Use History: None Reported Past Drug Use History: None Reported - Past Family History Mother Family Medical History: No Reported History Additional Family Medical History / Comment(s): hx migraines Father Family Medical History: Coronary Artery Disease (CAD), Hypertension Additional Family Medical History / Comment(s): ddd, alcoholism & drug use General Exam Limitations: no limitations General appearance: alert, in no apparent distress Head exam: Present: atraumatic, normocephalic, normal inspection Eye exam: Present: normal appearance, PERRL, EOMI. Absent: scleral icterus, conjunctival injection, periorbital swelling ENT exam: Present: normal exam, mucous membranes moist Neck exam: Present: normal inspection, full ROM. Absent: tenderness, meningismus, lymphadenopathy Respiratory exam: Present: normal lung sounds bilaterally. Absent: respiratory distress, wheezes, rales, rhonchi, stridor Cardiovascular Exam: Present: regular rate, normal rhythm, normal heart sounds. Absent: systolic murmur, diastolic murmur, rubs, gallop, clicks GI/Abdominal exam: Present: soft, normal bowel sounds. Absent: distended, tenderness, guarding, rebound, rigid Neurological exam: Present: alert, oriented X3, normal gait Course Vital Signs 03/29/20 11:37 Temperature 98.7 F Pulse Rate 92 Respiratory 20 Rate Blood Pressure 105/69 O2 Sat by Pulse 99 Oximetry Medical Decision Making - Medical Decision Making Patient presents with headache consistent with previous migraines. No focal neurologic deficits. This is not the worst headache of her life. Patient has had several imaging studies in the past. After denying any chance of , patient was given migraine cocktail and had significant improvement in symptoms. Feeling well to go home at this time. Will return for any worsening symptoms. Will follow up with her china painter at her appointment next week. Disposition Clinical Impression: Cephalgia Disposition: HOME SELF-CARE Condition: Good Instructions (If sedation given, give patient instructions): Acute Headache (ED) Additional Instructions: Please continue your migraine medications. Follow up with your doctor. Return to the emergency room for any worsening symptoms. Is patient prescribed a controlled substance at d/c from ED?: No Referrals: Isi Carolina MD [Primary Care Provider] - 1-2 days Time of Disposition: 13:11
== END 2020-03-29 13:23 | disposition home or self-care (01) ==
LOC: EC 11:35
DX: R51.9 Headache, unspecified (principal); J45.909 Unspecified asthma, uncomplicated; E11.9 Type 2 diabetes mellitus without complications; F32.9 Major depressive disorder, single episode, unspecified; F41.9 Anxiety disorder, unspecified; K21.9 Gastro-esophageal reflux disease without esophagitis; Z79.899 Other long term (current) drug therapy; Z79.84 Long term (current) use of oral hypoglycemic drugs; Z91.030 Bee allergy status; Z88.8 Allergy status to other drugs, medicaments and biological substances; Z91.040 Latex allergy status; Z88.5 Allergy status to narcotic agent; Z91.038 Other insect allergy status; Z88.2 Allergy status to sulfonamides; Z88.0 Allergy status to penicillin
CPT/HCPCS: 99283; 96374; 96375 ×2; 96361; J1200; J2765; J1885

== ENCOUNTER 2020-04-16 17:58 | Emergency (ER) | payer OTHER ==
[2020-04-16 18:06] VITALS: TEMP 98.5
[2020-04-16] MEDS ORDERED: METOCLOPRAMIDE 5 MG/ML 2 ML VIAL IVP STA (18:40)
[2020-04-16] MEDS ORDERED: KETOROLAC 15 MG/ML 1 ML VIAL IVP STA (18:40)
[2020-04-16] MEDS ORDERED: SODIUM CHLORIDE 0.9% 1,000 ML IV STA (18:40)
[2020-04-16] MEDS ORDERED: diphenhydrAMINE 50 MG/ML 1 ML VIAL IVP STA (18:40)
--- NOTE | 2020-04-16 19:07 | XR ---
EXAMINATION TYPE: XR chest 2V DATE OF EXAM: 04/16/2020 COMPARISON: 02/14/2020 HISTORY: Cough TECHNIQUE: Single view FINDINGS: Heart and mediastinum are normal. Lungs are clear. Diaphragm is normal. Bony thorax appears normal. IMPRESSION: Normal chest. No change.
[2020-04-16] MEDS ORDERED: MORPHINE SULFATE 4 MG/ML SYRINGE IVP STA (19:47)
--- NOTE | 2020-04-16 19:50 | ED ---
Headache HPI - General Chief Complaint: Headache Stated Complaint: Migrane Time Seen by Provider: 04/16/20 18:12 Mode of arrival: ambulatory Limitations: no limitations - History of Present Illness Initial Comments: Patient is a 29-year-old female presenting to the emergency Department with complaints of a headache that started approximately 10 PM yesterday evening. Patient does have a history of migraines and frequently comes to the ER with similar symptoms. She states this feels like her normal migraines, she is not able to control it at home with medicines. She states she has been having some nausea with this and not able to keep down any food or liquid. Patient denies any changes in her vision, no chest pain or shortness of breath. States she has had a cough for about a week, describes it as mostly dry no phlegm production. No fever or chills. She denies any sick contacts. Patient denies any abdominal pain. She denies being . She has no further complaints at this time. Upon arrival to the ER, her vital signs are stable. - Related Data Home Medications Medication Instructions Recorded Confirmed EPINEPHrine [Epipen 2-Mike] 0.3 mg IM ONCE PRN 10/16/18 04/16/20 metFORMIN HCL [metFORMIN HCL ER] 750 mg PO AC-SUPPER 02/07/19 04/16/20 Propranolol HCl 40 mg PO HS 05/08/19 04/16/20 SUMAtriptan succinate [Imitrex] 50 mg PO DAILY PRN 05/08/19 04/16/20 Topiramate [Topamax] 100 mg PO HS 05/08/19 04/16/20 tiZANidine [Zanaflex] 4 mg PO BID PRN 05/08/19 04/16/20 Albuterol Inhaler [Ventolin Hfa 2 puff INHALATION RT-Q4H PRN 10/17/19 04/16/20 Inhaler] Fenofibrate Nanocrystallized 145 mg PO HS 10/17/19 04/16/20 [Fenofibrate] Fish Oil/Dha/Epa [Fish Oil 1,200 1 cap PO HS 10/17/19 04/16/20 mg Fish Oil] Melatonin 5 mg PO HS 10/17/19 04/16/20 Cyanocobalamin (Vitamin B-12) 1,000 mcg PO HS 02/07/20 04/16/20 [Vitamin B-12] Omeprazole [PriLOSEC] 40 mg PO HS 03/04/20 04/16/20 traZODone HCL 100 mg PO HS 03/04/20 04/16/20 Doxepin [SINEquan] 50 mg PO HS 04/16/20 04/16/20 Previous Rx's Medication Instructions Recorded Ondansetron Odt [Zofran Odt] 4 mg PO Q8HR PRN #10 tab 11/21/19 Allergies Allergy/AdvReac Type Severity Reaction Status Date / Time bee pollen Allergy Severe Anaphylaxis Verified 04/16/20 20:17 haloperidol [From Haldol] Allergy Severe QUIT Verified 04/16/20 20:17 BREATHING haloperidol lactate Allergy Severe QUIT Verified 04/16/20 20:17 [From Haldol] BREATHING latex Allergy Severe RASH-THROAT Verified 04/16/20 20:17 CLOSES tramadol Allergy Severe Nausea & Verified 04/16/20 20:17 Vomiting prednisone Allergy THROAT Verified 04/16/20 20:17 SWELLS spider venom Allergy Swelling Verified 04/16/20 20:17 Sulfa (Sulfonamide Allergy THROAT Verified 04/16/20 20:17 Antibiotics) SWELLS venom-wasp Allergy Swelling Verified 04/16/20 20:17 venom-wasp protein Allergy Swelling Verified 04/16/20 20:17 promethazine HCl AdvReac Severe Nausea & Verified 04/16/20 20:17 [From Phenergan] Vomiting amoxicillin AdvReac Nausea & Verified 04/16/20 20:17 Vomiting ANTS Allergy Mild Anaphylaxis Uncoded 04/16/20 18:05 Review of Systems ROS Statement: Those systems with pertinent positive or pertinent negative responses have been documented in the HPI. ROS Other: All systems not noted in ROS Statement are negative. Past Medical History Past Medical History: Asthma, Diabetes Mellitus, GERD/Reflux Additional Past Medical History / Comment(s): migraines, degenerative disk disease, endometriosis, lupus, pancreatitis History of Any Multi-Drug Resistant Organisms: None Reported Past Surgical History: Orthopedic Surgery Additional Past Surgical History / Comment(s): laparoscopc surgery for endometriosis, cyst removed from left foot, EGD Past Anesthesia/Blood Transfusion Reactions: Previous Problems w/ Anesthesia Additional Past Anesthesia/Blood Transfusion Reaction / Comment(s): hard to wake up for 48-72 hours after laparoscopic surgery-was in hosp. for 3 days Past Psychological History: Anxiety, Depression, PTSD Smoking Status: Never smoker Past Alcohol Use History: None Reported Past Drug Use History: None Reported - Past Family History Mother Family Medical History: No Reported History Additional Family Medical History / Comment(s): hx migraines Father Family Medical History: Coronary Artery Disease (CAD), Hypertension Additional Family Medical History / Comment(s): ddd, alcoholism & drug use General Exam - General Exam Comments Initial Comments: GENERAL: Patient is well-developed and well-nourished. Patient is nontoxic and in no acute distress. HEAD: Atraumatic, normocephalic. EYES: Pupils equal round and reactive to light, extraocular movements intact, sclera anicteric, conjunctiva are normal. Eyelids were unremarkable. ENT: TMs normal, nares patent, oropharynx clear without exudates. Moist mucous membranes. NECK: Normal range of motion, supple without lymphadenopathy or JVD. LUNGS: Unlabored respirations. Breath sounds clear to auscultation bilaterally and equal. No wheezes rales or rhonchi. HEART: Regular rate and rhythm without murmurs, rubs or gallops. ABDOMEN: Soft, nontender, normoactive bowel sounds. No guarding, no rebound. No masses appreciated. : Deferred MUSCULOSKELETAL: Normal extremities with adequate strength and normal range of motion, no pitting or edema. No clubbing or cyanosis. NEUROLOGICAL: Patient is alert and oriented x 3. Motor and sensory are also intact. Cranial nerves II through XII grossly intact. Symmetrical smile. Normal speech, normal gait. PSYCH: Normal mood, normal affect. SKIN: Warm, Dry, normal turgor, no rashes or lesions noted. Limitations: no limitations Course Vital Signs 04/16/20 04/16/20 04/16/20 18:03 20:21 20:47 Temperature 98.5 F Pulse Rate 81 66 66 Respiratory 18 18 20 Rate Blood Pressure 103/71 103/63 104/62 O2 Sat by Pulse 99 99 99 Oximetry Medical Decision Making - Medical Decision Making Patient is a 29-year-old female here with a migraine since yesterday evening, she does have a history of migraines and this one is similar nature. No falls or trauma. Her exam is unremarkable, no acute neuro deficits. She has had a recent brain CT which showed no acute abnormalities. X-ray secondary to one week of a cough, no acute process. Patient received fluids, pain control and Benadryl. She is resting completely ER. I discussed with patient that she is to follow-up with her regular doctor concerning pain management for her migraines. She is stable for discharge at this time. Return parameters were discussed with the patient she verbalized understanding. Case discussed with Dr. Taylor. Disposition Clinical Impression: Head ache Disposition: HOME SELF-CARE Condition: Stable Instructions (If sedation given, give patient instructions): Acute Headache (ED) Additional Instructions: Please return to the Emergency Department if symptoms worsen or any other concerns. Follow-up with your regular doctor for treatment of your migraines. Is patient prescribed a controlled substance at d/c from ED?: No Referrals: Isi Carolina MD [Primary Care Provider] - 1-2 days
[2020-04-16 20:22] VITALS: PULSE 66
[2020-04-16 20:48] VITALS: BP 104/62; RESP 20
== END 2020-04-16 20:58 | disposition home or self-care (01) ==
LOC: EC 17:58
DX: G43.909 Migraine, unspecified, not intractable, without status migrainosus (principal); J45.909 Unspecified asthma, uncomplicated; E11.9 Type 2 diabetes mellitus without complications; K21.9 Gastro-esophageal reflux disease without esophagitis; F32.9 Major depressive disorder, single episode, unspecified; F41.9 Anxiety disorder, unspecified; Z79.84 Long term (current) use of oral hypoglycemic drugs; Z79.899 Other long term (current) drug therapy; Z88.0 Allergy status to penicillin; Z88.2 Allergy status to sulfonamides; Z88.6 Allergy status to analgesic agent; Z88.8 Allergy status to other drugs, medicaments and biological substances; Z91.040 Latex allergy status; Z91.038 Other insect allergy status; Z91.030 Bee allergy status; Z86.69 Personal history of other diseases of the nervous system and sense organs
CPT/HCPCS: 71046; 99283; 96374; 96375 ×3; 96361 ×2; J2270; J1200; J2765; J1885

== ENCOUNTER 2020-04-18 | Emergency (ER) | payer OTHER ==
--- NOTE | 2020-04-18 22:07 | ED ---
General Adult HPI - General Chief complaint: ENT Stated complaint: Ear injury Time Seen by Provider: 04/18/20 22:03 Source: patient, RN notes reviewed Mode of arrival: ambulatory Limitations: no limitations - History of Present Illness Initial comments: 29-year-old female Patient presents for foreign body in the left ear. States it is the piece from her ear pods. States this has been in for about 10 minutes. Her significant other tried to remove this but could not reach it. Patient denies pain. Patient denies any other symptoms.Patient has no other complaints at this time including shortness of breath, chest pain, abdominal pain, nausea or vomiting, headache, or visual changes. - Related Data Home Medications Medication Instructions Recorded Confirmed EPINEPHrine [Epipen 2-Mike] 0.3 mg IM ONCE PRN 10/16/18 04/16/20 metFORMIN HCL [metFORMIN HCL ER] 750 mg PO AC-SUPPER 02/07/19 04/16/20 Propranolol HCl 40 mg PO HS 05/08/19 04/16/20 SUMAtriptan succinate [Imitrex] 50 mg PO DAILY PRN 05/08/19 04/16/20 Topiramate [Topamax] 100 mg PO HS 05/08/19 04/16/20 tiZANidine [Zanaflex] 4 mg PO BID PRN 05/08/19 04/16/20 Albuterol Inhaler [Ventolin Hfa 2 puff INHALATION RT-Q4H PRN 10/17/19 04/16/20 Inhaler] Fenofibrate Nanocrystallized 145 mg PO HS 10/17/19 04/16/20 [Fenofibrate] Fish Oil/Dha/Epa [Fish Oil 1,200 1 cap PO HS 10/17/19 04/16/20 mg Fish Oil] Melatonin 5 mg PO HS 10/17/19 04/16/20 Cyanocobalamin (Vitamin B-12) 1,000 mcg PO HS 02/07/20 04/16/20 [Vitamin B-12] Omeprazole [PriLOSEC] 40 mg PO HS 03/04/20 04/16/20 traZODone HCL 100 mg PO HS 03/04/20 04/16/20 Doxepin [SINEquan] 50 mg PO HS 04/16/20 04/16/20 Previous Rx's Medication Instructions Recorded Ondansetron Odt [Zofran Odt] 4 mg PO Q8HR PRN #10 tab 11/21/19 Allergies Allergy/AdvReac Type Severity Reaction Status Date / Time bee pollen Allergy Severe Anaphylaxis Verified 04/18/20 21:52 haloperidol [From Haldol] Allergy Severe QUIT Verified 04/18/20 21:52 BREATHING haloperidol lactate Allergy Severe QUIT Verified 04/18/20 21:52 [From Haldol] BREATHING latex Allergy Severe RASH-THROAT Verified 04/18/20 21:52 CLOSES tramadol Allergy Severe Nausea & Verified 04/18/20 21:52 Vomiting prednisone Allergy THROAT Verified 04/18/20 21:52 SWELLS spider venom Allergy Swelling Verified 04/18/20 21:52 Sulfa (Sulfonamide Allergy THROAT Verified 04/18/20 21:52 Antibiotics) SWELLS venom-wasp Allergy Swelling Verified 04/18/20 21:52 venom-wasp protein Allergy Swelling Verified 04/18/20 21:52 promethazine HCl AdvReac Severe Nausea & Verified 04/18/20 21:52 [From Phenergan] Vomiting amoxicillin AdvReac Nausea & Verified 04/18/20 21:52 Vomiting ANTS Allergy Mild Anaphylaxis Uncoded 04/18/20 21:52 Review of Systems ROS Statement: Those systems with pertinent positive or pertinent negative responses have been documented in the HPI. ROS Other: All systems not noted in ROS Statement are negative. Past Medical History Past Medical History: Asthma, Diabetes Mellitus, GERD/Reflux Additional Past Medical History / Comment(s): migraines, degenerative disk disease, endometriosis, lupus, pancreatitis History of Any Multi-Drug Resistant Organisms: None Reported Past Surgical History: Orthopedic Surgery Additional Past Surgical History / Comment(s): laparoscopc surgery for endometriosis, cyst removed from left foot, EGD Past Anesthesia/Blood Transfusion Reactions: Previous Problems w/ Anesthesia Additional Past Anesthesia/Blood Transfusion Reaction / Comment(s): hard to wake up for 48-72 hours after laparoscopic surgery-was in hosp. for 3 days Past Psychological History: Anxiety, Depression, PTSD Smoking Status: Never smoker Past Alcohol Use History: None Reported Past Drug Use History: None Reported - Past Family History Mother Family Medical History: No Reported History Additional Family Medical History / Comment(s): hx migraines Father Family Medical History: Coronary Artery Disease (CAD), Hypertension Additional Family Medical History / Comment(s): ddd, alcoholism & drug use General Exam Limitations: no limitations General appearance: alert Head exam: Present: atraumatic Eye exam: Present: normal appearance. Absent: PERRL, EOMI ENT exam: Present: mucous membranes moist. Absent: normal external ear exam (Patient has foreign body noted near the eyes of the external auditory canal of the left ear) Neck exam: Present: normal inspection, full ROM Respiratory exam: Present: normal lung sounds bilaterally. Absent: respiratory distress Cardiovascular Exam: Present: regular rate, normal rhythm Course Vital Signs 04/18/20 21:49 Temperature 99.0 F Pulse Rate 88 Respiratory 20 Rate Blood Pressure 132/85 O2 Sat by Pulse 99 Oximetry Procedures - Foreign Body Removal Ear Location: ear canal (L) Foreign Body Suspected: plastic bead/other plastic Foreign Body Removed: yes Foreign Body Removal Technique: forceps (Alligator forceps) Tympanic Membrane Intact: Yes Patient Tolerated Procedure: well Complications: none Medical Decision Making - Medical Decision Making rubber piece from ear pod was removed using alligator forceps without difficulty. As a pad was very close to the cause of the external auditory canal I did not suspect any tympanic membrane injury. However tympanic membrane and canal were inspected, there is no perforation or injury noted. Disposition Clinical Impression: Ear foreign body Disposition: HOME SELF-CARE Condition: Good Instructions (If sedation given, give patient instructions): Ear Foreign Body (ED) Additional Instructions: Please take Motrin and Tylenol for pain. Please follow-up with your doctor. Return to the emergency room for any worsening symptoms. Is patient prescribed a controlled substance at d/c from ED?: No Referrals: Isi Carolina MD [Primary Care Provider] - 1-2 days Time of Disposition: 22:06
== END 2020-04-18 22:25 | disposition home or self-care (01) ==
CPT/HCPCS: 69200; 99282

== ENCOUNTER 2020-04-22 16:07 | Inpatient (IN) | payer MEDICAID, OTHER ==
[2020-04-22 17:01] LABS: Amphetamine Screen,Urine Not Detected (NotDetected); Barbiturate Screen,Urine Not Detected (NotDetected); Benzodiazepines Screen,Urine Not Detected (NotDetected); Cocaine Screen,Urine Not Detected (NotDetected); Methadone Screen, Urine Not Detected (NotDetected); Opiate Screen,Urine Not Detected (NotDetected); Oxycodone Screen, Urine Not Detected (NotDetected); Phencyclidine Screen,Urine Not Detected (NotDetected); Tricyclic Antidepressant,Urine Detected (NotDetected); Urn Cannabinoid Scrn Not Detected (NotDetected)
--- NOTE | 2020-04-22 17:06 | ED ---
Psych HPI - General Chief Complaint: Psychiatric Symptoms Stated Complaint: Mental Health Time Seen by Provider: 04/22/20 16:20 Source: patient, RN notes reviewed, Caregiver Mode of arrival: ambulatory Limitations: no limitations - History of Present Illness Initial Comments: This a 29-year-old female presents emergency Department with chief complaint de pression, suicidal patient. Patient is brought here for psychiatric evaluation. Patient denies any drug use states that she occasionally uses alcohol. She doesn't history of depression and issues with sleeping. She is currently on doxepin. Patient states that she is currently switching psychiatrists. Patient states that she has a feeling of taking her medications. Patient denies any physical complaints. Patient has attempted suicide in the past. - Related Data Home Medications Medication Instructions Recorded Confirmed EPINEPHrine [Epipen 2-Mike] 0.3 mg IM ONCE PRN 10/16/18 04/22/20 Propranolol HCl 40 mg PO HS 05/08/19 04/22/20 SUMAtriptan succinate [Imitrex] 50 mg PO DAILY PRN 05/08/19 04/22/20 Topiramate [Topamax] 100 mg PO HS 05/08/19 04/22/20 tiZANidine [Zanaflex] 4 mg PO BID PRN 05/08/19 04/22/20 Albuterol Inhaler [Ventolin Hfa 2 puff INHALATION RT-Q4H PRN 10/17/19 04/22/20 Inhaler] Fenofibrate Nanocrystallized 145 mg PO HS 10/17/19 04/22/20 [Fenofibrate] Omeprazole [PriLOSEC] 40 mg PO HS 03/04/20 04/22/20 Doxepin [SINEquan] 50 mg PO HS 04/16/20 04/22/20 Previous Rx's Medication Instructions Recorded Ondansetron Odt [Zofran Odt] 4 mg PO Q8HR PRN #10 tab 11/21/19 Allergies Allergy/AdvReac Type Severity Reaction Status Date / Time bee pollen Allergy Severe Anaphylaxis Verified 04/22/20 16:48 haloperidol [From Haldol] Allergy Severe QUIT Verified 04/22/20 16:48 BREATHING haloperidol lactate Allergy Severe QUIT Verified 04/22/20 16:48 [From Haldol] BREATHING latex Allergy Severe RASH-THROAT Verified 04/22/20 16:48 CLOSES tramadol Allergy Severe Nausea & Verified 04/22/20 16:48 Vomiting prednisone Allergy THROAT Verified 04/22/20 16:48 SWELLS spider venom Allergy Swelling Verified 04/22/20 16:48 Sulfa (Sulfonamide Allergy THROAT Verified 04/22/20 16:48 Antibiotics) SWELLS venom-wasp Allergy Swelling Verified 04/22/20 16:48 venom-wasp protein Allergy Swelling Verified 04/22/20 16:48 promethazine HCl AdvReac Severe Nausea & Verified 04/22/20 16:48 [From Phenergan] Vomiting amoxicillin AdvReac Nausea & Verified 04/22/20 16:48 Vomiting ANTS Allergy Mild Anaphylaxis Uncoded 04/18/20 21:52 Review of Systems ROS Statement: Those systems with pertinent positive or pertinent negative responses have been documented in the HPI. ROS Other: All systems not noted in ROS Statement are negative. Past Medical History Past Medical History: Asthma, Diabetes Mellitus, GERD/Reflux Additional Past Medical History / Comment(s): migraines, degenerative disk disease, endometriosis, lupus, pancreatitis History of Any Multi-Drug Resistant Organisms: None Reported Past Surgical History: Orthopedic Surgery Additional Past Surgical History / Comment(s): laparoscopc surgery for endometriosis, cyst removed from left foot, EGD Past Anesthesia/Blood Transfusion Reactions: Previous Problems w/ Anesthesia Additional Past Anesthesia/Blood Transfusion Reaction / Comment(s): hard to wake up for 48-72 hours after laparoscopic surgery-was in hosp. for 3 days Past Psychological History: Anxiety, Depression, PTSD Smoking Status: Never smoker Past Alcohol Use History: None Reported Past Drug Use History: None Reported - Past Family History Mother Family Medical History: No Reported History Additional Family Medical History / Comment(s): hx migraines Father Family Medical History: Coronary Artery Disease (CAD), Hypertension Additional Family Medical History / Comment(s): ddd, alcoholism & drug use General Exam Limitations: no limitations General appearance: alert, in no apparent distress Head exam: Present: atraumatic, normocephalic, normal inspection Eye exam: Present: normal appearance, PERRL, EOMI. Absent: scleral icterus, conjunctival injection, periorbital swelling Neck exam: Present: normal inspection, full ROM. Absent: tenderness, meningismus, lymphadenopathy Respiratory exam: Present: normal lung sounds bilaterally. Absent: respiratory distress, wheezes, rales, rhonchi, stridor Cardiovascular Exam: Present: regular rate, normal rhythm, normal heart sounds. Absent: systolic murmur, diastolic murmur, rubs, gallop, clicks Neurological exam: Present: alert, oriented X3 Psychiatric exam: Present: depressed, flat affect Skin exam: Present: warm, dry, intact, normal color. Absent: rash Course Vital Signs 04/22/20 16:16 Temperature 97.3 F L Pulse Rate 97 Respiratory 18 Rate Blood Pressure 126/98 O2 Sat by Pulse 98 Oximetry Medical Decision Making - Medical Decision Making Patient was evaluated by psychiatric services patient be admitted for psychiatric treatment. - Lab Data Lab Results 04/22/20 Range/Units 16:42 Urine Opiates Screen Not Detected (NotDetected) Ur Oxycodone Screen Not Detected (NotDetected) Urine Methadone Screen Not Detected (NotDetected) Ur Propoxyphene Screen Not Detected (NotDetected) Ur Barbiturates Screen Not Detected (NotDetected) U Tricyclic Antidepress Detected H (NotDetected) Ur Phencyclidine Scrn Not Detected (NotDetected) Ur Amphetamines Screen Not Detected (NotDetected) U Methamphetamines Scrn Not Detected (NotDetected) U Benzodiazepines Scrn Not Detected (NotDetected) Urine Cocaine Screen Not Detected (NotDetected) U Marijuana (THC) Screen Not Detected (NotDetected) Disposition Clinical Impression: Suicidal ideation, Depression Disposition: TRANSFER TO PSYCH HOSP/UNIT Referrals: Isi Carolina MD [Primary Care Provider] - 1-2 days
[2020-04-22] MEDS ORDERED: ONDANSETRON ODT 4 MG TAB PO STA (19:07)
[2020-04-22] MEDS ORDERED: EPINEPHrine 1 MG/ML 1 ML AMP IM PRN (19:34)
[2020-04-22] MEDS ORDERED: MAGNESIUM HYDROXIDE 2,400 MG/10 ML CUP PO PRN (19:35)
[2020-04-22] MEDS ORDERED: MAG HYDROX/AL HYDROX/SIMETH 30 ML CUP PO PRN (19:35)
[2020-04-22] MEDS: TOPIRAMATE 100 MG TAB PO SCH (20:33)
[2020-04-22] MEDS: PANTOPRAZOLE 40 MG TABLET PO SCH (20:34)
[2020-04-22] MEDS: FENOFIBRATE 160 MG TAB PO SCH (20:34)
[2020-04-22] MEDS: PROPRANOLOL 20 MG TAB PO SCH (20:34)
[2020-04-22] MEDS: LORazepam 1 MG TAB PO PRN (20:34)
[2020-04-22] MEDS ORDERED: DOXEPIN 25 MG CAP PO SCH (21:00)
[2020-04-23] MEDS: ACETAMINOPHEN TAB 325 MG TAB PO PRN (07:09)
[2020-04-23 08:10] LABS: Basophils % (A) 0 %; Eosinophils # (A) 0.1 k/uL (0-0.7); Eosinophils % (A) 1 %; HGB 13.7 gm/dL (11.4-16.0); Lymphocytes % (A) 48 %; MCHC 33.5 g/dL (31.0-37.0); MCV 92.4 fL (80.0-100.0); Mean Platelet Volume 7.7; Monocytes # (A) 0.3 k/uL (0-1.0); Monocytes % (A) 4 %; Neutrophils # (A) 3.7 k/uL (1.3-7.7); Neutrophils % (A) 45 %; Platelet Count 283 k/uL (150-450); RBC 4.43 m/uL (3.80-5.40); RDW 12.8 % (11.5-15.5); WBC 8.2 k/uL (3.8-10.6)
[2020-04-23] MEDS: ONDANSETRON ODT 4 MG TAB PO PRN (08:30)
[2020-04-23 08:34] LABS: ALT 30 U/L (4-34); AST 32 U/L (14-36); African American GFR (CKD) >90 (>60 ml/min/1.73 sqM); Albumin 3.9 g/dL (3.5-5.0); Alkaline Phosphatase 63 U/L (38-126); Anion Gap 11 mmol/L; Blood Urea Nitrogen 6 mg/dL (7-17); Calcium 10.2 mg/dL (8.4-10.2); Carbon Dioxide 15 mmol/L (22-30); Chloride 110 mmol/L (98-107); Glucose 128 mg/dL (74-99); HDL Cholesterol 35 mg/dL (40-60); Non-African American GFR(CKD) >90 (>60 ml/min/1.73 sqM); Potassium 3.9 mmol/L (3.5-5.1); Sodium 136 mmol/L (137-145); Total Bilirubin 0.5 mg/dL (0.2-1.3); Total Protein 7.5 g/dL (6.3-8.2)
[2020-04-23 08:36] LABS: Cholesterol 316 mg/dL (<200)
[2020-04-23 08:45] LABS: Triglycerides 1169 mg/dL (<150)
[2020-04-23] MEDS: VENLAFAXINE HCL ER 37.5 MG CAP PO SCH (09:59)
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
[2020-04-23] MEDS: LORazepam 1 MG TAB PO PRN ×2 (15:53→23:57)
[2020-04-23] MEDS: ALBUTEROL HFA INHALER INHALATION PRN (15:54)
[2020-04-23 19:37] LABS: Hemoglobin A1C 6.6 % (4.0-6.0)
--- NOTE | 2020-04-23 19:49 | CT ---
EXAMINATION TYPE: CT brain wo con DATE OF EXAM: 04/23/2020 COMPARISON: 02/17/2020. HISTORY: fall with head injury/pain. CT DLP: 969.5 mGycm. Automated Exposure Control for Dose Reduction was Utilized. TECHNIQUE: CT scan of the head is performed without contrast. FINDINGS: There is no acute intracranial hemorrhage, mass effect, or midline shift identified. The ventricles and sulci are within normal limits in size. The globes are intact and the visualized sin uses are clear. IMPRESSION: No acute intracranial hemorrhage, mass effect, or midline shift is seen.
[2020-04-23] MEDS ORDERED: OLANZapine 5 MG TAB PO SCH (21:00)
[2020-04-23] MEDS: PROPRANOLOL 20 MG TAB PO SCH (22:29)
[2020-04-23] MEDS: PANTOPRAZOLE 40 MG TABLET PO SCH (22:30)
[2020-04-23] MEDS: TOPIRAMATE 100 MG TAB PO SCH (22:30)
[2020-04-23] MEDS: FENOFIBRATE 160 MG TAB PO SCH (22:30)
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
[2020-04-23] MEDS: ATORVASTATIN 40 MG TAB PO SCH (23:57)
[2020-04-23] MEDS: tiZANidine 4 MG TAB PO PRN (23:58)
[2020-04-24 00:44] LABS: Appearance,Urine Cloudy (Clear); Bacteria,Urine Many /hpf; Bilirubin,Urine Negative (Negative); Blood,Urine Small (Negative); Budding Yeast,Urine Occasional /hpf; Color,Urine Yellow; Glucose,Urine (UA) Trace (Negative); Ketones,Urine Negative (Negative); Leukocyte Esterase,Urine Large (Negative); Mucus,Urine Few /hpf; Nitrite,Urine Negative (Negative); PH, Urine 6.5 (5.0-8.0); Protein,Urine Trace (Negative); RBC,Urine 1 /hpf (0-5); Specific Gravity,Urine 1.019 (1.001-1.035); Squamous Epithelial Cell,Urine 7 /hpf (0-4); Urobilinogen,Urine <2.0 mg/dL (<2.0); WBC,Urine 5 /hpf (0-5)
[2020-04-24] MEDS: VENLAFAXINE HCL ER 37.5 MG CAP PO SCH (08:51)
[2020-04-24] MEDS ORDERED: VENLAFAXINE HCL ER 75 MG CAP PO SCH (09:00)
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
[2020-04-24] MEDS: SUMAtriptan succinate 50 MG TAB PO PRN (09:49)
[2020-04-24] MEDS: tiZANidine 4 MG TAB PO PRN (09:50)
[2020-04-24 14:51] VITALS: BMI 38.0
[2020-04-24] MEDS: LORazepam 1 MG TAB PO PRN (19:11)
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
[2020-04-24] MEDS: OLANZapine 2.5 MG TAB PO SCH (20:20)
[2020-04-24] MEDS: FENOFIBRATE 160 MG TAB PO SCH (20:20)
[2020-04-24] MEDS: TOPIRAMATE 100 MG TAB PO SCH (20:20)
[2020-04-24] MEDS: PANTOPRAZOLE 40 MG TABLET PO SCH (20:20)
[2020-04-24] MEDS: PROPRANOLOL 20 MG TAB PO SCH (20:20)
[2020-04-24] MEDS: ATORVASTATIN 40 MG TAB PO SCH (20:20)
[2020-04-24] MEDS: hydrOXYzine pamoate 25 MG CAP PO PRN (22:53)
[2020-04-24] MEDS: ACETAMINOPHEN TAB 325 MG TAB PO PRN (22:55)
[2020-04-25] MEDS: LORazepam 1 MG TAB PO PRN ×2 (04:30→15:13)
[2020-04-25] MEDS: VENLAFAXINE HCL ER 75 MG CAP PO SCH (08:46)
[2020-04-25] MEDS: tiZANidine 4 MG TAB PO PRN ×2 (08:46→21:10)
[2020-04-25] MEDS: PROPRANOLOL 20 MG TAB PO SCH (08:46)
[2020-04-25] MEDS: hydrOXYzine pamoate 25 MG CAP PO PRN ×2 (08:46→21:09)
[2020-04-25] MEDS: ACETAMINOPHEN TAB 325 MG TAB PO PRN (08:46)
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
[2020-04-25] MEDS ORDERED: WATER FOR INJECTION, STERILE 10 ML IV ONE (16:35)
[2020-04-25] MEDS: ZIPRASIDONE 20 MG VIAL IM PRN (16:37)
[2020-04-25] MEDS ORDERED: PRAZOSIN 1 MG CAP PO SCH (21:00)
[2020-04-25] MEDS: ATORVASTATIN 40 MG TAB PO SCH (21:10)
[2020-04-25] MEDS: OLANZapine 2.5 MG TAB PO SCH (21:10)
[2020-04-25] MEDS: TOPIRAMATE 100 MG TAB PO SCH (21:10)
[2020-04-25] MEDS: PANTOPRAZOLE 40 MG TABLET PO SCH (21:10)
[2020-04-25] MEDS: FENOFIBRATE 160 MG TAB PO SCH (21:11)
[2020-04-26] MEDS: PROPRANOLOL 20 MG TAB PO SCH (08:37)
[2020-04-26] MEDS: VENLAFAXINE HCL ER 75 MG CAP PO SCH (08:37)
[2020-04-26] MEDS: LORazepam 1 MG TAB PO PRN ×2 (09:10→23:02)
[2020-04-26] MEDS ORDERED: hydrOXYzine pamoate 25 MG CAP PO SCH ×2 (09:45→21:00)
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
[2020-04-26] MEDS: hydrOXYzine pamoate 25 MG CAP PO PRN (12:10)
--- NOTE | 2020-04-26 13:06 | XR ---
Right hand HISTORY: Trauma and pain 3 views of the right hand, correlation prior exam of the right wrist 12/10/2019 Bone mineralization, joint spaces and alignment are maintained. There is soft tissue swelling present . IMPRESSION: No fracture or dislocation.
[2020-04-26] MEDS: NICOTINE 21MG/24HR PATCH TRANSDERM SCH (13:34)
[2020-04-26] MEDS: ZIPRASIDONE 20 MG VIAL IM PRN (13:59)
[2020-04-26] MEDS: hydrOXYzine pamoate 25 MG CAP PO SCH ×2 (15:40→20:48)
--- NOTE | 2020-04-26 16:14 | P.MHFACE ---
Face to Face Restrain/Seclus - Evaluation Patient's Immediate Situation: Endangers self safety Patient's Reaction to the Intervention: Appropriate Patient's Medical & Behavioral Condition: Awake, Alert, Confused, Agitated, Paranoid, Homicidal thoughts, Auditory hallucinations, Flight of ideas
[2020-04-26] MEDS: OLANZapine 2.5 MG TAB PO SCH (20:47)
[2020-04-26] MEDS: FENOFIBRATE 160 MG TAB PO SCH (20:48)
[2020-04-26] MEDS: PANTOPRAZOLE 40 MG TABLET PO SCH (20:48)
[2020-04-26] MEDS: TOPIRAMATE 100 MG TAB PO SCH (20:48)
[2020-04-26] MEDS: ATORVASTATIN 40 MG TAB PO SCH (20:48)
[2020-04-26] MEDS: PRAZOSIN 1 MG CAP PO SCH (20:48)
[2020-04-27] MEDS: PROPRANOLOL 20 MG TAB PO SCH (08:26)
[2020-04-27] MEDS: NICOTINE 21MG/24HR PATCH TRANSDERM SCH (08:26)
[2020-04-27] MEDS: LORazepam 1 MG TAB PO PRN ×2 (08:26→18:50)
[2020-04-27] MEDS: VENLAFAXINE HCL ER 150 MG CAP PO SCH (08:26)
[2020-04-27] MEDS: hydrOXYzine pamoate 25 MG CAP PO SCH ×3 (08:26→20:42)
[2020-04-27] MEDS: ZIPRASIDONE 20 MG VIAL IM PRN (11:46)
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
[2020-04-27] MEDS: PANTOPRAZOLE 40 MG TABLET PO SCH (20:41)
[2020-04-27] MEDS: OLANZapine 2.5 MG TAB PO SCH (20:42)
[2020-04-27] MEDS: PRAZOSIN 1 MG CAP PO SCH (20:42)
[2020-04-27] MEDS: FENOFIBRATE 160 MG TAB PO SCH (20:42)
[2020-04-27] MEDS: ATORVASTATIN 40 MG TAB PO SCH (20:42)
[2020-04-27] MEDS: TOPIRAMATE 100 MG TAB PO SCH (20:42)
[2020-04-27] MEDS: ALBUTEROL HFA INHALER INHALATION PRN (20:46)
[2020-04-27] MEDS: DOXEPIN 25 MG CAP PO SCH (21:38)
[2020-04-27] MEDS: SUMAtriptan succinate 50 MG TAB PO PRN (21:40)
[2020-04-27] MEDS: tiZANidine 4 MG TAB PO PRN (21:40)
[2020-04-28] MEDS: LORazepam 1 MG TAB PO PRN ×2 (06:02→14:20)
[2020-04-28] MEDS: hydrOXYzine pamoate 25 MG CAP PO SCH ×3 (08:05→20:14)
[2020-04-28] MEDS: VENLAFAXINE HCL ER 150 MG CAP PO SCH (08:06)
[2020-04-28] MEDS: PROPRANOLOL 20 MG TAB PO SCH (08:06)
[2020-04-28] MEDS: NICOTINE 21MG/24HR PATCH TRANSDERM SCH (08:06)
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
--- NOTE | 2020-04-28 17:32 | CT ---
EXAMINATION TYPE: CT brain seine wo con DATE OF EXAM: 04/28/2020 COMPARISON: 04/23/2020. HISTORY: fell hitting head CT DLP: [id number] mGycm Automated exposure control for dose reduction was used. TECHNIQUE: CT scan of the head and cervical spine are performed without contrast. FINDINGS: There is no acute intracranial hemorrhage, mass effect, or midline shift identified. The ventricles and sulci are within normal limits in size. The globes are intact and the visualized sin uses are clear. Cervical spine is visualized in its entirety from C1 through upper thoracic levels and demonstrates s atisfactory alignment without evidence of acute fracture or dislocation. Prevertebral soft tissue ap pears within normal limits. The C1-C2 articulation is unremarkable. IMPRESSION: 1. There is no acute fracture or dislocation evident in the cervical spine. 2. No acute intracranial hemorrhage, mass effect, or midline shift is seen.
--- NOTE | 2020-04-28 17:39 | XR ---
RESULT: HISTORY: fall with pain. TECHNIQUE: 2 views of the left hip were obtained. COMPARISON: None. FINDINGS: There is no acute fracture or dislocation. The visualized joint spaces are preserved. IMPRESSION: No acute osseous abnormality.
--- NOTE | 2020-04-28 17:40 | XR ---
RESULT: HISTORY: fall with pain. TECHNIQUE: 3 views of the left shoulder were obtained. COMPARISON: None. FINDINGS: There is no acute fracture or dislocation. The visualized joint spaces are preserved. IMPRESSION: No acute osseous abnormality.
[2020-04-28] MEDS: tiZANidine 4 MG TAB PO PRN (19:27)
[2020-04-28] MEDS: ATORVASTATIN 40 MG TAB PO SCH (20:13)
[2020-04-28] MEDS: OLANZapine 2.5 MG TAB PO SCH (20:13)
[2020-04-28] MEDS: TOPIRAMATE 100 MG TAB PO SCH (20:13)
[2020-04-28] MEDS: DOXEPIN 25 MG CAP PO SCH (20:13)
[2020-04-28] MEDS: PANTOPRAZOLE 40 MG TABLET PO SCH (20:13)
[2020-04-28] MEDS: FENOFIBRATE 160 MG TAB PO SCH (20:13)
[2020-04-28] MEDS: PRAZOSIN 1 MG CAP PO SCH (20:13)
[2020-04-29] MEDS: LORazepam 1 MG TAB PO PRN ×2 (04:15→14:36)
[2020-04-29 07:03] VITALS: RESP 16
[2020-04-29] MEDS: hydrOXYzine pamoate 25 MG CAP PO SCH ×3 (08:02→21:13)
[2020-04-29] MEDS: NICOTINE 21MG/24HR PATCH TRANSDERM SCH (08:02)
[2020-04-29] MEDS: PROPRANOLOL 20 MG TAB PO SCH (08:03)
[2020-04-29] MEDS: VENLAFAXINE HCL ER 150 MG CAP PO SCH (08:03)
[2020-04-29] MEDS: tiZANidine 4 MG TAB PO PRN (08:06)
--- NOTE | 2020-04-29 10:16 | P.PN ---
Progress Note - Text Progress Note Date: 04/29/20 Interval History: Patient was seen early this morning after taking her medications and was sitting on the floor by the nurse's desk and appeared to be dizzy and somewhat lethargic and was being evaluated by the mental health nurse and having her vitals taken. Patient's vitals appear to be fairly normal with mild hypotension. Patient was escorted to her room by the nurse to lay down. Patient was seen by curriculum writer in her room later on in the morning and was agreeable to speak. Patient appeared to be calmer and her affect and demeanor today and more appropriately with brighter. She states that she is doing "better overall". She claims that her mood has been gradually improving all the unit and states that her anxiety is improving as well on the current medications. She states that she is able to sleep better now that she is on doxepin at nighttime. She states her last night she had less nightmares and was able to sleep more throughout the night. She continues to have minimal insight and judgment and was speaking about not wanting to go to the intermediate any longer as she is getting back together with her . She states that her has been more apologetic towards her and is agreeable to go to family therapy with her and patient wants to live with her once again. She claims that she is going to the groups and trying to participate as best as she can. At this time patient denies any suicidal or homical ideations, intent or plan. Patient denies any auditory, visual tellez llucinations and denies any paranoia or delusions. Patient denies any side effects from the medications and has been compliant with meds. Mental Status Exam: General Appearance: Patient appears to be overweight, stated age is more awake today, more cooperative today. Superficial at times. Mildly improving hygiene and grooming. Has dyed pink hair Behavior: Patient is seated without any agitated behavior. More cooperative today. Speech: Patient's speech is fluent and nonpressured. Mood/Affect: Patient reports their mood is improving mildly, affect is congruent and constricted Suicidality/Homicidality: Patient denies having any homicidal ideation intent or plan. She denies any suicidal thoughts, no intent or plan. Perceptions: Patient denies any visual hallucinations and denies any auditory hallucinations Though content/process: Focused on her stressors and medications and discharge, concrete. No delusions or paranoia. Memory and concentration: AOX3, grossly intact for the purposes of this session Judgment and insight: poor/impulsive, improving mildly Assessment: Major depressive disorder, recurrent, severe without psychotic features PTSD Cluster B personality traits, rule out borderline personality disorder. Plan: -Patient continues to meet criteria for inpatient psychiatric admission for symptom stabilization and safety. Patient has signed [adult voluntary form and] medication consent and was placed in patient's chart. -Medications: Continue with Effexor XR 150 mg daily for mood/anxiety. Continue with Zyprexa 7.5 mg daily at bedtime for mood stabilization/insomnia/racing thoughts. Continue with Vistaril 50 mg three times a day for anxiety. continue with prazosin 2 mg daily at bedtime for nightmares. Continue with DOxepin 50mg qhs for mood/insomnia. -Discontinued Propranolol due to likely hypotension and dizziness, will continue to monitor vitals closely. Encouraged patient to get up slowly from seated or laying position to prevent drop in BP and dizziness. -When necessary Ativan and Haldol for agitation/aggression. -CT head completed on 04/23/2020 showed no acute changes or hemorrhage. Repeat CT head/neck on 04/28/2020 showed no acute changes or fx -BALDEMAR nurse evaluated patient and collected evidence. -NRT -not needed as patient does not smoke. -STEPHANIA on board for discharge planning. Encouraged the patient to participate in milieu. BALDEMAR nurse came to evaluate patient on 04/24/20 and collect evidence. Patient is now declining wanting to go to [facility] intermediate and claims that she made up with her and wants to return back home. Likely discharge tomorrow if patient remains stable psychiatrically overnight with no other adverse effects from medications or medical problems.
[2020-04-29] MEDS: ACETAMINOPHEN TAB 325 MG TAB PO PRN (11:53)
[2020-04-29] MEDS ORDERED: IBUPROFEN 800 MG TAB PO PRN (11:55)
[2020-04-29 16:46] VITALS: TEMP 97.2
[2020-04-29] MEDS: DOXEPIN 25 MG CAP PO SCH (20:24)
[2020-04-29] MEDS: ATORVASTATIN 40 MG TAB PO SCH (20:24)
[2020-04-29] MEDS: PANTOPRAZOLE 40 MG TABLET PO SCH (20:24)
[2020-04-29] MEDS: PRAZOSIN 1 MG CAP PO SCH (20:24)
[2020-04-29] MEDS: OLANZapine 2.5 MG TAB PO SCH (20:24)
[2020-04-29] MEDS: FENOFIBRATE 160 MG TAB PO SCH (20:24)
[2020-04-29] MEDS: TOPIRAMATE 100 MG TAB PO SCH (20:24)
[2020-04-29] MEDS: ONDANSETRON ODT 4 MG TAB PO PRN (20:26)
[2020-04-30] MEDS ORDERED: MELATONIN 5 MG TABLET PO SCH (01:30)
[2020-04-30] MEDS ORDERED: MELATONIN 5 MG TABLET PO PRN (02:26)
[2020-04-30] MEDS: LORazepam 1 MG TAB PO PRN (05:47)
[2020-04-30 05:48] VITALS: BP 130/65; PULSE 120
[2020-04-30] MEDS: NICOTINE 21MG/24HR PATCH TRANSDERM SCH (08:23)
[2020-04-30] MEDS: hydrOXYzine pamoate 25 MG CAP PO SCH (08:23)
[2020-04-30] MEDS: VENLAFAXINE HCL ER 150 MG CAP PO SCH (08:25)
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
== END 2020-04-30 10:15 | disposition home or self-care (01) | DRG 885 ==
LOC: EC 16:07 → 3MHU 19:05
PROVIDERS: ADMIT Psychiatry & Neurology Psychiatry; ATTEND Psychiatry & Neurology Psychiatry
DX: F33.2 Major depressive disorder, recurrent severe without psychotic features (principal); R45.851 Suicidal ideations; E11.9 Type 2 diabetes mellitus without complications; E66.01 Morbid (severe) obesity due to excess calories; Z68.38 Body mass index [BMI] 38.0-38.9, adult; E78.5 Hyperlipidemia, unspecified; F43.10 Post-traumatic stress disorder, unspecified; F60.3 Borderline personality disorder; F60.89 Other specific personality disorders; G43.909 Migraine, unspecified, not intractable, without status migrainosus; G47.00 Insomnia, unspecified; J45.909 Unspecified asthma, uncomplicated; N89.8 Other specified noninflammatory disorders of vagina; Z78.1 Physical restraint status; Z79.899 Other long term (current) drug therapy; Z81.8 Family history of other mental and behavioral disorders; Z82.49 Family history of ischemic heart disease and other diseases of the circulatory system; Z91.410 Personal history of adult physical and sexual abuse; Z91.5 Personal history of self-harm; Z20.822 Contact with and (suspected) exposure to COVID-19; Z88.0 Allergy status to penicillin; K21.9 Gastro-esophageal reflux disease without esophagitis; Z88.2 Allergy status to sulfonamides; Z88.8 Allergy status to other drugs, medicaments and biological substances; Z88.6 Allergy status to analgesic agent; Z91.030 Bee allergy status; Z81.1 Family history of alcohol abuse and dependence; Z81.3 Family history of other psychoactive substance abuse and dependence; Z82.61 Family history of arthritis; Z82.0 Family history of epilepsy and other diseases of the nervous system; M32.9 Systemic lupus erythematosus, unspecified
CPT/HCPCS: 70450; 72125; 73502; 80053; 80061; 80306; 81001; 81025; 82075; 83036; 84443; 85025; 87635; 99285

== ENCOUNTER 2020-05-04 10:34 | Emergency (ER) | payer OTHER ==
[2020-05-04 10:39] VITALS: RESP 18
[2020-05-04] MEDS ORDERED: ACETAMINOPHEN TAB 325 MG TAB PO STA (10:58)
[2020-05-04] MEDS ORDERED: diphenhydrAMINE 50 MG/ML 1 ML VIAL IVP STA (10:58)
[2020-05-04] MEDS ORDERED: ONDANSETRON 4 MG/2 ML VIAL IVP STA (10:58)
[2020-05-04] MEDS ORDERED: SODIUM CHLORIDE 0.9% 500 ML 500 ML IV STA (10:58)
--- NOTE | 2020-05-04 11:19 | ED ---
Headache HPI - General Chief Complaint: Headache Stated Complaint: migraine Time Seen by Provider: 05/04/20 10:57 Source: patient Mode of arrival: ambulatory Limitations: no limitations - History of Present Illness Initial Comments: Patient is a 29-year-old white female that presents to the ER with her mother due to complaint of a migraine for 3 days. She noted that she gets about 2-3 migraines per month, she has a sumatriptan and prescription at home that she takes along with Motrin and Tylenol. She noted that light and sound both make the headache worse and that laying down is most comfortable position. Patient was wearing black glasses to prevent life community to her eyes. She noted that the medication did not help as much this time so she decided come to the emergency room. Patient was in no notable distress. She denied any change in vision, change in hearing, chest pain, shortness of breath, weakness, fatigue, vomiting, diarrhea, constipation - Related Data Home Medications Medication Instructions Recorded Confirmed EPINEPHrine [Epipen 2-Mike] 0.3 mg IM ONCE PRN 10/16/18 04/22/20 SUMAtriptan succinate [Imitrex] 50 mg PO DAILY PRN 05/08/19 04/22/20 Topiramate [Topamax] 100 mg PO HS 05/08/19 04/22/20 tiZANidine [Zanaflex] 4 mg PO BID PRN 05/08/19 04/22/20 Albuterol Inhaler [Ventolin Hfa 2 puff INHALATION RT-Q4H PRN 10/17/19 04/22/20 Inhaler] Fenofibrate Nanocrystallized 145 mg PO HS 10/17/19 04/22/20 [Fenofibrate] Omeprazole [PriLOSEC] 40 mg PO HS 03/04/20 04/22/20 Previous Rx's Medication Instructions Recorded Acetaminophen Tab [Tylenol] 650 mg PO Q4HR PRN tab 04/30/20 Atorvastatin [Lipitor] 40 mg PO HS 30 Days tab 04/30/20 Doxepin [SINEquan] 50 mg PO HS 30 Days cap 04/30/20 Ibuprofen [Motrin] 800 mg PO TID PRN tab 04/30/20 Nicotine 21Mg/24Hr Patch [Habitrol] 1 patch TRANSDERM DAILY 14 Days 04/30/20 patch OLANZapine [ZyPREXA] 7.5 mg PO HS 30 Days tablet 04/30/20 Prazosin [Minipress] 2 mg PO HS 30 Days cap 04/30/20 Venlafaxine HCl ER [Effexor XR] 150 mg PO DAILY 30 Days cap.er.24h 04/30/20 hydrOXYzine pamoate [Vistaril] 50 mg PO TID PRN 30 Days cap 04/30/20 Allergies Allergy/AdvReac Type Severity Reaction Status Date / Time bee pollen Allergy Severe Anaphylaxis Verified 05/04/20 10:37 haloperidol [From Haldol] Allergy Severe QUIT Verified 05/04/20 10:37 BREATHING haloperidol lactate Allergy Severe QUIT Verified 05/04/20 10:37 [From Haldol] BREATHING latex Allergy Severe RASH-THROAT Verified 05/04/20 10:37 CLOSES tramadol Allergy Severe Nausea & Verified 05/04/20 10:37 Vomiting pineapple Allergy Anaphylaxis Verified 05/04/20 10:37 prednisone Allergy THROAT Verified 05/04/20 10:37 SWELLS spider venom Allergy Swelling Verified 05/04/20 10:37 Sulfa (Sulfonamide Allergy THROAT Verified 05/04/20 10:37 Antibiotics) SWELLS venom-wasp Allergy Swelling Verified 05/04/20 10:37 venom-wasp protein Allergy Swelling Verified 05/04/20 10:37 promethazine HCl AdvReac Severe Nausea & Verified 05/04/20 10:37 [From Phenergan] Vomiting amoxicillin AdvReac Nausea & Verified 05/04/20 10:37 Vomiting ANTS Allergy Mild Anaphylaxis Uncoded 04/18/20 21:52 cherries Allergy Anaphylaxis Uncoded 04/24/20 14:53 coconut Allergy Anaphylaxis Uncoded 04/24/20 14:54 Review of Systems ROS Statement: Those systems with pertinent positive or pertinent negative responses have been documented in the HPI. ROS Other: All systems not noted in ROS Statement are negative. Past Medical History Past Medical History: Asthma, Diabetes Mellitus, GERD/Reflux Additional Past Medical History / Comment(s): migraines, degenerative disk disease, endometriosis, lupus, pancreatitis History of Any Multi-Drug Resistant Organisms: None Reported Past Surgical History: Orthopedic Surgery Additional Past Surgical History / Comment(s): laparoscopc surgery for endometriosis, cyst removed from left foot, EGD Past Anesthesia/Blood Transfusion Reactions: Previous Problems w/ Anesthesia Additional Past Anesthesia/Blood Transfusion Reaction / Comment(s): hard to wake up for 48-72 hours after laparoscopic surgery-was in hosp. for 3 days Past Psychological History: Anxiety, Depression, PTSD Smoking Status: Current every day smoker Past Alcohol Use History: None Reported Past Drug Use History: None Reported - Past Family History Mother Family Medical History: No Reported History Additional Family Medical History / Comment(s): hx migraines Father Family Medical History: Coronary Artery Disease (CAD), Hypertension Additional Family Medical History / Comment(s): ddd, alcoholism & drug use General Exam Limitations: no limitations General appearance: alert, in no apparent distress Head exam: Present: atraumatic, normocephalic, normal inspection Eye exam: Present: normal appearance, PERRL, EOMI. Absent: scleral icterus, conjunctival injection, periorbital swelling ENT exam: Present: normal exam, mucous membranes moist Respiratory exam: Present: normal lung sounds bilaterally. Absent: respiratory distress, wheezes, rales, rhonchi, stridor Cardiovascular Exam: Present: regular rate, normal rhythm, normal heart sounds. Absent: systolic murmur, diastolic murmur, rubs, gallop, clicks Extremities exam: Present: normal inspection, full ROM, normal capillary refill. Absent: tenderness, pedal edema, joint swelling, calf tenderness Neurological exam: Present: alert, oriented X3, CN II-XII intact Psychiatric exam: Present: normal affect, normal mood Skin exam: Present: warm, dry, intact, normal color. Absent: rash Course Vital Signs 05/04/20 10:37 Temperature 98.5 F Pulse Rate 99 Respiratory 18 Rate Blood Pressure 126/90 O2 Sat by Pulse 100 Oximetry Medical Decision Making - Medical Decision Making 21-year-old female complaining of migraine for 3 days. Ordered a saline lock and 500 mL bolus of normal saline. Ordered 4 mg of Zofran, 650 mg of Tylenol, 25 mg of Benadryl. Disposition Clinical Impression: Migraine headache Disposition: HOME SELF-CARE Condition: Stable Instructions (If sedation given, give patient instructions): Acute Headache (ED), Migraine Headache (ED) Additional Instructions: Please return to the Emergency Department if symptoms worsen or any other concerns. Patient told to continue sumatriptan, Tylenol, Motrin at home Is patient prescribed a controlled substance at d/c from ED?: No Referrals: Isi Carolina MD [Primary Care Provider] - 1-2 days Time of Disposition: 12:49
[2020-05-04 13:09] VITALS: BP 146/89; PULSE 88; TEMP 98.9
== END 2020-05-04 13:09 | disposition home or self-care (01) ==
LOC: EC 10:34
DX: G43.909 Migraine, unspecified, not intractable, without status migrainosus (principal); K21.9 Gastro-esophageal reflux disease without esophagitis; J45.909 Unspecified asthma, uncomplicated; F17.200 Nicotine dependence, unspecified, uncomplicated; Z79.899 Other long term (current) drug therapy; Z88.0 Allergy status to penicillin; Z88.2 Allergy status to sulfonamides; Z88.6 Allergy status to analgesic agent; Z88.8 Allergy status to other drugs, medicaments and biological substances; Z91.030 Bee allergy status; Z91.018 Allergy to other foods; Z91.040 Latex allergy status; Z91.038 Other insect allergy status; Z82.0 Family history of epilepsy and other diseases of the nervous system
CPT/HCPCS: 99283; 96374; 96375; 96361 ×2; J1200; J2405

== ENCOUNTER 2020-05-07 18:57 | Inpatient (IN) | payer OTHER ==
[2020-05-07] MEDS ORDERED: HYDROmorphone 0.5 MG/0.5 ML SYRINGE IM STA (19:11)
[2020-05-07] MEDS ORDERED: ONDANSETRON ODT 4 MG TAB PO STA (19:11)
[2020-05-07] MEDS ORDERED: SODIUM CHLORIDE 0.9% 1,000 ML IV ONE (20:06)
[2020-05-07] MEDS ORDERED: SODIUM CHLORIDE 0.9% 500 ML 500 ML IV ONE (20:06)
[2020-05-07] MEDS ORDERED: ACETAMINOPHEN TAB 325 MG TAB PO STA (20:32)
[2020-05-07 20:35] LABS: Basophils # (A) 0.1 k/uL (0-0.2); Basophils % (A) 0 %; Eosinophils # (A) 0.1 k/uL (0-0.7); Eosinophils % (A) 1 %; HCT 37.5 % (34.0-46.0); HGB 12.9 gm/dL (11.4-16.0); Lymphocytes # (A) 1.8 k/uL (1.0-4.8); Lymphocytes % (A) 16 %; MCH 31.3 pg (25.0-35.0); MCHC 34.4 g/dL (31.0-37.0); MCV 90.7 fL (80.0-100.0); Mean Platelet Volume 7.9; Monocytes # (A) 0.4 k/uL (0-1.0); Monocytes % (A) 4 %; Neutrophils % (A) 78 %; Platelet Count 207 k/uL (150-450); RBC 4.13 m/uL (3.80-5.40); RDW 12.7 % (11.5-15.5); WBC 11.6 k/uL (3.8-10.6)
[2020-05-07] MEDS: HYDROmorphone 0.5 MG/0.5 ML SYRINGE IVP PRN (20:41)
[2020-05-07 20:45] LABS: ALT 17 U/L (4-34); AST 30 U/L (14-36); African American GFR (CKD) >90 (>60 ml/min/1.73 sqM); Alkaline Phosphatase 46 U/L (38-126); Anion Gap 11 mmol/L; Blood Urea Nitrogen 9 mg/dL (7-17); Calcium 9.9 mg/dL (8.4-10.2); Carbon Dioxide 16 mmol/L (22-30); Chloride 110 mmol/L (98-107); Glucose 191 mg/dL (74-99); Lipase 996 U/L (23-300); Non-African American GFR(CKD) >90 (>60 ml/min/1.73 sqM); Sodium 137 mmol/L (137-145); Total Bilirubin 0.7 mg/dL (0.2-1.3); Total Protein 7.6 g/dL (6.3-8.2)
[2020-05-07 20:46] LABS: Potassium 5.3 mmol/L (3.5-5.1)
--- NOTE | 2020-05-07 20:56 | XR ---
EXAMINATION TYPE: XR chest 2V DATE OF EXAM: 05/07/2020 COMPARISON: 04/16/2020 HISTORY: Chest pain. Fever TECHNIQUE: FINDINGS: Heart and mediastinum are normal. Lungs are clear. Diaphragm is normal. Bony thorax appears normal. IMPRESSION: Normal chest. No change.
[2020-05-07 22:05] LABS: Appearance,Urine Clear (Clear); Bilirubin,Urine Negative (Negative); Blood,Urine Negative (Negative); Color,Urine Light Yellow; Glucose,Urine (UA) 3+ (Negative); Ketones,Urine Negative (Negative); PH, Urine 7.5 (5.0-8.0); Protein,Urine Negative (Negative); Specific Gravity,Urine 1.008 (1.001-1.035)
[2020-05-07 22:06] LABS: Leukocyte Esterase,Urine Negative (Negative); Nitrite,Urine Negative (Negative); Urobilinogen,Urine <2.0 mg/dL (<2.0)
--- NOTE | 2020-05-07 22:17 | US ---
EXAMINATION TYPE: US abdomen limited DATE OF EXAM: 05/07/2020 COMPARISON: CT, US CLINICAL HISTORY: RUQ pain fever. RUQ pain x 1 day and fever. EXAM MEASUREMENTS: Liver Length: 17.7 cm Gallbladder Wall: 0.27 cm CBD: 0.31 cm Right Kidney: 10.9 x 6.0 x 5.2 cm Limited due to patient body habitus and gas. Pancreas: Limited visibility. Tail not visualized due to overlying bowel gas. Liver: Appears coarse and heterogeneous. Increased echogenicity and attenuation. Measures upper limi ts of normal. Gallbladder: No abnormalities seen at this time. Evidence for sonographic Velasquez's sign: No CBD: Portions seen appear to be wnl. Right Kidney: No hydronephrosis or masses seen IMPRESSION: Negative exam. No gallstones or dilated ducts. No focal liver defect. There is probably some fatty in filtration of the liver.
--- NOTE | 2020-05-07 22:24 | CT ---
EXAMINATION TYPE: CT abdomen pelvis w con DATE OF EXAM: 05/07/2020 COMPARISON: 02/26/2020 HISTORY: c/o flank pain CT DLP: 1632.3 mGycm Automated exposure control for dose reduction was used. CONTRAST: Performed with IV Contrast, patient injected with 100 mL of Isovue 300. Lung bases are clear of infiltrate. There is no pleural effusion. Heart size is normal. There is no pericardial effusion. Liver spleen appear normal. Gallbladder appears normal. Stomach is normal. There is some mild fat stranding around the pancreatic head. There is some fluid in the anterior righ t pararenal space. There is some mild edema of the pancreatic head. There is no adrenal mass. Kidneys show satisfactory contrast opacification. There is no hydronephrosi s. There is no retroperitoneal adenopathy. Appendix appears normal. Ureters are not dilated. Delayed images show normal renal excretion. Bladder distends smoothly. There is no inguinal hernia. Uterus is anteverted. There is small amount of free fluid in the pelvis. There is no evidence of pelvic mass. Uterus is anteverted. There is no ascites or free air. There is no evidence of bowel obstruction. There is no mesenteric ed dominga. The lumbar vertebra have normal alignment. There is no compression fracture. The bony pelvis is intac t. IMPRESSION: There is some retroperitoneal fluid and mild swelling in and around the pancreatic head consistent wi th acute pancreatitis. This is a change compared to old exam. There is small amount of low-density free fluid in the pelvis that could be physiologic.
--- NOTE | 2020-05-07 22:26 | ED ---
Back Pain HPI - General Chief Complaint: Back Pain/Injury Stated Complaint: back pain Time Seen by Provider: 05/07/20 19:05 Source: patient Limitations: no limitations - History of Present Illness Initial Comments: 29-year-old diabetic presents to the emergency department today for chief complaint of abdominal pain radiating to the back. Patient states that she has back pain she states it radiates towards the abdomen and from the abdomen to the back. Patient denies any falls struck traumas denies any known fevers. She denies any chest pain or shortness of breath. Patient states that it radiates up and down the back as well. Patient denies urinary symptoms. Denies leg w eakness or loss of sensation, she states she has chronic low back pain that at times radiates or tingles down the right leg. That has occurred today. Patient states the new back pain is mid back and radiates to abdomen, and is different from her chronic back pain. pt admits to hx of pancreatitis. denies new medications or recent antibiotic use. Pt however does take zyprexa. - Related Data Home Medications Medication Instructions Recorded Confirmed EPINEPHrine [Epipen 2-Mike] 0.3 mg IM ONCE PRN 10/16/18 05/07/20 SUMAtriptan succinate [Imitrex] 50 mg PO DAILY PRN 05/08/19 05/07/20 Topiramate [Topamax] 100 mg PO HS 05/08/19 05/07/20 tiZANidine [Zanaflex] 4 mg PO BID PRN 05/08/19 05/07/20 Albuterol Inhaler [Ventolin Hfa 2 puff INHALATION RT-Q4H PRN 10/17/19 05/07/20 Inhaler] Fenofibrate Nanocrystallized 145 mg PO HS 10/17/19 05/07/20 [Fenofibrate] Omeprazole [PriLOSEC] 40 mg PO HS 03/04/20 05/07/20 Acetaminophen Tab [Tylenol Tab] 500 mg PO Q6HR PRN 05/07/20 05/07/20 Cyclobenzaprine [Flexeril] 10 mg PO TID PRN 05/07/20 05/07/20 Nicotine 21Mg/24Hr Patch [Habitrol] 1 patch TRANSDERM DAILY PRN 05/07/20 05/07/20 clindamycin HCL [Cleocin] 300 mg PO Q8H 05/07/20 05/07/20 Previous Rx's Medication Instructions Recorded Atorvastatin [Lipitor] 40 mg PO HS 30 Days tab 04/30/20 Doxepin [SINEquan] 50 mg PO HS 30 Days cap 04/30/20 Ibuprofen [Motrin] 800 mg PO TID PRN tab 04/30/20 OLANZapine [ZyPREXA] 7.5 mg PO HS 30 Days tablet 04/30/20 Prazosin [Minipress] 2 mg PO HS 30 Days cap 04/30/20 Venlafaxine HCl ER [Effexor XR] 150 mg PO DAILY 30 Days cap.er.24h 04/30/20 hydrOXYzine pamoate [Vistaril] 50 mg PO TID PRN 30 Days cap 04/30/20 Allergies Allergy/AdvReac Type Severity Reaction Status Date / Time bee pollen Allergy Severe Anaphylaxis Verified 05/07/20 20:33 haloperidol [From Haldol] Allergy Severe QUIT Verified 05/07/20 20:33 BREATHING haloperidol lactate Allergy Severe QUIT Verified 05/07/20 20:33 [From Haldol] BREATHING latex Allergy Severe RASH-THROAT Verified 05/07/20 20:33 CLOSES tramadol Allergy Severe Nausea & Verified 05/07/20 20:33 Vomiting pineapple Allergy Anaphylaxis Verified 05/07/20 20:33 prednisone Allergy THROAT Verified 05/07/20 20:33 SWELLS spider venom Allergy Swelling Verified 05/07/20 20:33 Sulfa (Sulfonamide Allergy THROAT Verified 05/07/20 20:33 Antibiotics) SWELLS venom-wasp Allergy Swelling Verified 05/07/20 20:33 venom-wasp protein Allergy Swelling Verified 05/07/20 20:33 promethazine HCl AdvReac Severe Nausea & Verified 05/07/20 20:33 [From Phenergan] Vomiting amoxicillin AdvReac Nausea & Verified 05/07/20 20:33 Vomiting ANTS Allergy Mild Anaphylaxis Uncoded 05/07/20 19:00 cherries Allergy Anaphylaxis Uncoded 05/07/20 19:00 coconut Allergy Anaphylaxis Uncoded 05/07/20 19:00 Review of Systems ROS Statement: Those systems with pertinent positive or pertinent negative responses have been documented in the HPI. ROS Other: All systems not noted in ROS Statement are negative. Past Medical History Past Medical History: Asthma, Diabetes Mellitus, GERD/Reflux Additional Past Medical History / Comment(s): migraines, degenerative disk disease, endometriosis, lupus, pancreatitis History of Any Multi-Drug Resistant Organisms: None Reported Past Surgical History: Orthopedic Surgery Additional Past Surgical History / Comment(s): laparoscopc surgery for endometriosis, cyst removed from left foot, EGD Past Anesthesia/Blood Transfusion Reactions: Previous Problems w/ Anesthesia Additional Past Anesthesia/Blood Transfusion Reaction / Comment(s): hard to wake up for 48-72 hours after laparoscopic surgery-was in hosp. for 3 days Past Psychological History: Anxiety, Depression, PTSD Smoking Status: Current every day smoker Past Alcohol Use History: None Reported Past Drug Use History: None Reported - Past Family History Mother Family Medical History: No Reported History Additional Family Medical History / Comment(s): hx migraines Father Family Medical History: Coronary Artery Disease (CAD), Hypertension Additional Family Medical History / Comment(s): ddd, alcoholism & drug use General Exam - General Exam Comments Initial Comments: General: The patient is awake and alert, in no distress Eye: Pupils are equal, round and reactive to light, extra-ocular movements are intact. No nystagmus. There is normal conjunctiva bilaterally. No signs of icterus. Ears, nose, mouth and throat: There are moist mucous membranes and no oral lesions. Neck: The neck is supple, there is no tenderness or JVD. Cardiovascular: There is a regular rate and rhythm. No murmur, rub or gallop is appreciated. Respiratory: Lungs are clear to auscultation, respirations are non-labored, breath sounds are equal. No wheezes, stridor, rales, or rhonchi. Gastrointestinal: Soft, non-distended, epigastric pain to palpation of the abdomen, abdomen is without masses or organomegaly noted. There is no rebound or guarding present. Musculoskeletal: Some low back pain to palpation, band like. Normal ROM, no tenderness. Strength 5/5 of the LE b/l. Sensation intact of the LE bl including the saddle region. Radial pulses equal bilaterally 2+. Neurological: A&O x 3. CN II-XII intact, There are no obvious motor or sensory deficits. Coordination appears grossly intact. Speech is normal. Skin: Skin is warm and dry and no rashes or lesions are noted. Psychiatric: Cooperative, appropriate mood & affect, normal judgment. Limitations: no limitations Course Vital Signs 05/07/20 05/07/20 05/07/20 18:58 20:25 22:30 Temperature 98.6 F 102.5 F H 101.1 F H Pulse Rate 108 H 130 H 115 H Respiratory 18 18 18 Rate Blood Pressure 126/84 142/98 152/87 O2 Sat by Pulse 100 100 97 Oximetry Medical Decision Making - Medical Decision Making Fever. epigastric pain. Ultrasound no cholecystitis. No stones noted. No gallbladder wall thickening. CT of the abdomen and pelvis reveals pancreatic head inflammation consistent with acute pancreatitis patient does have a lipase around 990. This is consistent with physical examination of epigastric pain and clinical history provided of epigastric pain radiated to the back. Patient was initiated on Rocephin. ordered NPO and hydrated in ER. Patient agreeable to admission. My SAM[facility]OA accepted admission on behalf of [facility] group. GI on consultation. She is on Zyprexa which could be possible cause. EKG was reviewed by attending provider to discuss the case in detail and attending reviewed laboratory studies he is agreeable current care plan as well as admission. Ventricular rate 135 beats minute, IL interval 126 ms, QR mormonism 72 ms, QT/QTC 302/453. Patient does have some T-wave inversions that are appreciated on previous EKG comparison of 02/14/2020. There is significant artifact on this EKG. No obvious ST elevation or depression - Lab Data Result diagrams: 05/07/20 20:21 05/07/20 20:21 Lab Results 05/07/20 05/07/20 05/07/20 Range/Units 20:21 20:21 20:50 WBC 11.6 H (3.8-10.6) k/uL RBC 4.13 (3.80-5.40) m/uL Hgb 12.9 (11.4-16.0) gm/dL Hct 37.5 (34.0-46.0) % MCV 90.7 (80.0-100.0) fL MCH 31.3 (25.0-35.0) pg MCHC 34.4 (31.0-37.0) g/dL RDW 12.7 (11.5-15.5) % Plt Count 207 (150-450) k/uL MPV 7.9 Neutrophils % 78 % Lymphocytes % 16 % Monocytes % 4 % Eosinophils % 1 % Basophils % 0 % Neutrophils # 9.0 H (1.3-7.7) k/uL Lymphocytes # 1.8 (1.0-4.8) k/uL Monocytes # 0.4 (0-1.0) k/uL Eosinophils # 0.1 (0-0.7) k/uL Basophils # 0.1 (0-0.2) k/uL Sodium 137 (137-145) mmol/L Potassium 5.3 H (3.5-5.1) mmol/L Chloride 110 H (98-107) mmol/L Carbon Dioxide 16 L (22-30) mmol/L Anion Gap 11 mmol/L BUN 9 (7-17) mg/dL Creatinine 0.74 (0.52-1.04) mg/dL Est GFR (CKD-EPI)AfAm >90 (>60 ml/min/1.73 sqM) Est GFR (CKD-EPI)NonAf >90 (>60 ml/min/1.73 sqM) Glucose 191 H (74-99) mg/dL Plasma Lactic Acid Aurelio (0.7-2.0) mmol/L Calcium 9.9 (8.4-10.2) mg/dL Total Bilirubin 0.7 (0.2-1.3) mg/dL AST 30 (14-36) U/L ALT 17 (4-34) U/L Alkaline Phosphatase 46 (38-126) U/L Total Protein 7.6 (6.3-8.2) g/dL Albumin 4.0 (3.5-5.0) g/dL Lipase 996 H (23-300) U/L Urine Color Urine Appearance (Clear) Urine pH (5.0-8.0) Ur Specific [place] (1.001-1.035) Urine Protein (Negative) Urine Glucose (UA) (Negative) Urine Ketones (Negative) Urine Blood (Negative) Urine Nitrite (Negative) Urine Bilirubin (Negative) Urine Urobilinogen (<2.0) mg/dL Ur Leukocyte Esterase (Negative) Coronavirus (PCR) Not Detected (Not Detectd) 05/07/20 05/07/20 Range/Units 21:30 22:19 WBC (3.8-10.6) k/uL RBC (3.80-5.40) m/uL Hgb (11.4-16.0) gm/dL Hct (34.0-46.0) % MCV (80.0-100.0) fL MCH (25.0-35.0) pg MCHC (31.0-37.0) g/dL RDW (11.5-15.5) % Plt Count (150-450) k/uL MPV Neutrophils % % Lymphocytes % % Monocytes % % Eosinophils % % Basophils % % Neutrophils # (1.3-7.7) k/uL Lymphocytes # (1.0-4.8) k/uL Monocytes # (0-1.0) k/uL Eosinophils # (0-0.7) k/uL Basophils # (0-0.2) k/uL Sodium (137-145) mmol/L Potassium (3.5-5.1) mmol/L Chloride (98-107) mmol/L Carbon Dioxide (22-30) mmol/L Anion Gap mmol/L BUN (7-17) mg/dL Creatinine (0.52-1.04) mg/dL Est GFR (CKD-EPI)AfAm (>60 ml/min/1.73 sqM) Est GFR (CKD-EPI)NonAf (>60 ml/min/1.73 sqM) Glucose (74-99) mg/dL Plasma Lactic Acid Aurelio 1.3 (0.7-2.0) mmol/L Calcium (8.4-10.2) mg/dL Total Bilirubin (0.2-1.3) mg/dL AST (14-36) U/L ALT (4-34) U/L Alkaline Phosphatase (38-126) U/L Total Protein (6.3-8.2) g/dL Albumin (3.5-5.0) g/dL Lipase (23-300) U/L Urine Color Light Yellow Urine Appearance Clear (Clear) Urine pH 7.5 (5.0-8.0) Ur Specific [place] 1.008 (1.001-1.035) Urine Protein Negative (Negative) Urine Glucose (UA) 3+ H (Negative) Urine Ketones Negative (Negative) Urine Blood Negative (Negative) Urine Nitrite Negative (Negative) Urine Bilirubin Negative (Negative) Urine Urobilinogen <2.0 (<2.0) mg/dL Ur Leukocyte Esterase Negative (Negative) Coronavirus (PCR) (Not Detectd) Disposition Clinical Impression: Pancreatitis, Abdominal pain, Back pain, Fever, Nausea & vomiting Disposition: ADMITTED IP TO THIS [facility] Condition: Stable Is patient prescribed a controlled substance at d/c from ED?: No Referrals: Isi Carolina MD [Primary Care Provider] - 1-2 days Time of Disposition: 22:26 Decision to Admit Reason: Admit from EC Decision Date: 05/07/20 Decision Time: 22:26
[2020-05-07] MEDS ORDERED: NALOXONE 0.4 MG/ML 1 ML VIAL IV PRN (22:27)
[2020-05-07] MEDS: SODIUM CHLORIDE 0.9% 1,000 ML IV SCH (22:50)
[2020-05-07] MEDS ORDERED: ACETAMINOPHEN TAB 325 MG TAB PO PRN (23:03)
[2020-05-08] MEDS: TOPIRAMATE 25 MG TAB PO SCH ×2 (00:12→22:27)
[2020-05-08] MEDS: PRAZOSIN 1 MG CAP PO SCH ×2 (00:12→22:41)
[2020-05-08] MEDS: HYDROmorphone 0.5 MG/0.5 ML SYRINGE IVP PRN ×8 (00:12→22:56)
[2020-05-08] MEDS ORDERED: ALBUTEROL HFA INHALER INHALATION PRN (00:21)
[2020-05-08] MEDS ORDERED: AUTO INJCT IM PRN (00:21)
[2020-05-08] MEDS ORDERED: IBUPROFEN 800 MG TAB PO PRN (00:21)
[2020-05-08] MEDS ORDERED: CYCLOBENZAPRINE 10 MG TAB PO PRN (00:21)
[2020-05-08] MEDS ORDERED: EPINEPHRINE 0.3 MG/0.3 ML IM PRN (00:21)
[2020-05-08] MEDS ORDERED: ONDANSETRON 4 MG/2 ML VIAL IVP PRN (00:24)
[2020-05-08] MEDS: ATORVASTATIN 40 MG TAB PO SCH ×2 (00:41→22:30)
[2020-05-08] MEDS: DOXEPIN 25 MG CAP PO SCH ×2 (00:41→10:30)
[2020-05-08] MEDS: CLINDAMYCIN 150 MG CAP PO SCH ×3 (00:42→17:56)
[2020-05-08] MEDS: OLANZapine 7.5 MG TAB PO SCH ×2 (00:42→22:30)
[2020-05-08] MEDS: hydrOXYzine pamoate 25 MG CAP PO PRN ×3 (01:00→19:57)
[2020-05-08] MEDS: tiZANidine 4 MG TAB PO PRN ×2 (02:22→19:57)
[2020-05-08 07:18] LABS: Glucose,Whole Blood 148 mg/dL (75-99)
[2020-05-08] MEDS: VENLAFAXINE HCL ER 150 MG CAP PO SCH (09:27)
[2020-05-08] MEDS: SODIUM CHLORIDE 0.9% 1,000 ML IV SCH ×3 (09:32→20:17)
[2020-05-08 09:43] LABS: African American GFR (CKD) >90 (>60 ml/min/1.73 sqM); Anion Gap 9 mmol/L; Basophils % (A) 0 %; Blood Urea Nitrogen 6 mg/dL (7-17); Calcium 9.3 mg/dL (8.4-10.2); Carbon Dioxide 17 mmol/L (22-30); Chloride 111 mmol/L (98-107); Eosinophils # (A) 0.2 k/uL (0-0.7); Eosinophils % (A) 2 %; Glucose 148 mg/dL (74-99); HCT 33.5 % (34.0-46.0); HGB 11.6 gm/dL (11.4-16.0); Lipase 568 U/L (23-300); Lymphocytes # (A) 2.3 k/uL (1.0-4.8); Lymphocytes % (A) 27 %; MCH 31.8 pg (25.0-35.0); MCHC 34.6 g/dL (31.0-37.0); MCV 91.9 fL (80.0-100.0); Mean Platelet Volume 8.1; Monocytes # (A) 0.4 k/uL (0-1.0); Monocytes % (A) 4 %; Neutrophils # (A) 5.5 k/uL (1.3-7.7); Neutrophils % (A) 65 %; Non-African American GFR(CKD) >90 (>60 ml/min/1.73 sqM); Platelet Count 190 k/uL (150-450); Potassium 4.2 mmol/L (3.5-5.1); RBC 3.65 m/uL (3.80-5.40); RDW 12.7 % (11.5-15.5); Sodium 137 mmol/L (137-145); WBC 8.5 k/uL (3.8-10.6)
--- NOTE | 2020-05-08 09:58 | XR ---
Right wrist HISTORY: Trauma and pain 4 views the right wrist, correlation right hand 04/26/2020 Bone mineralization, joint spaces and alignment are maintained. IMPRESSION: No fracture or dislocation, follow-up as indicated
[2020-05-08 11:37] LABS: Glucose,Whole Blood 148 mg/dL (75-99)
--- NOTE | 2020-05-08 13:00 | P.HPIM ---
History of Present Illness Patient is a pleasant 29-year-old female complaining came in with complaints of epigastric and right upper quadrant sharp abdominal pain radiating to the back. Patient is found to have pancreatitis on the computed tomography scan as well as elevated lipase. Patient denied any alcohol use. Still has gallbladder although there is no cholelithiasis on ultrasound. His third episode of pancreatitis in the past it was believed her pancreatitis is secondary to medications those were discontinued. Patient is supposed to get endoscopic ultrasound as an outpatient. Patient is on clindamycin the course of which she'll be done by tomorrow for toothache. Patient is still nauseous. Patient had multiple episodes of nausea vomiting since yesterday Review of Systems REVIEW OF SYSTEMS: CONSTITUTIONAL: No fever, no malaise, no fatigue. HEENT: No recent visual problems or hearing problems. Denied any sore throat. CARDIOVASCULAR: No chest pain, orthopnea, PND, no palpitations, no syncope. PULMONARY: No shortness of breath, no cough, no hemoptysis. GASTROINTESTINAL: As mentioned in HPI NEUROLOGICAL: No headaches, no weakness, no numbness. HEMATOLOGICAL: Denies any bleeding or petechiae. GENITOURINARY: Denies any burning micturition, frequency, or urgency. MUSCULOSKELETAL/RHEUMATOLOGICAL: Denies any joint pain, swelling, or any muscle pain. ENDOCRINE: Denies any polyuria or polydipsia. The rest of the 14-point review of systems is negative. Past Medical History Past Medical History: Asthma, Diabetes Mellitus, GERD/Reflux Additional Past Medical History / Comment(s): migraines, degenerative disk disease, endometriosis, lupus, pancreatitis History of Any Multi-Drug Resistant Organisms: None Reported Past Surgical History: Orthopedic Surgery Additional Past Surgical History / Comment(s): laparoscopc surgery for endometriosis, cyst removed from left foot, EGD Past Anesthesia/Blood Transfusion Reactions: Previous Problems w/ Anesthesia Additional Past Anesthesia/Blood Transfusion Reaction / Comment(s): hard to wake up for 48-72 hours after laparoscopic surgery-was in hosp. for 3 days Past Psychological History: Anxiety, Depression, PTSD Smoking Status: Current every day smoker Past Alcohol Use History: None Reported Past Drug Use History: None Reported - Past Family History Mother Family Medical History: No Reported History Additional Family Medical History / Comment(s): hx migraines Father Family Medical History: Coronary Artery Disease (CAD), Hypertension Additional Family Medical History / Comment(s): ddd, alcoholism & drug use Medications and Allergies Home Medications Medication Instructions Recorded Confirmed Type EPINEPHrine [Epipen 2-Mike] 0.3 mg IM ONCE PRN 10/16/18 05/07/20 History SUMAtriptan succinate [Imitrex] 50 mg PO DAILY PRN 05/08/19 05/07/20 History Topiramate [Topamax] 100 mg PO HS 05/08/19 05/07/20 History tiZANidine [Zanaflex] 4 mg PO BID PRN 05/08/19 05/07/20 History Albuterol Inhaler [Ventolin Hfa 2 puff INHALATION RT-Q4H PRN 10/17/19 05/07/20 History Inhaler] Fenofibrate Nanocrystallized 145 mg PO HS 10/17/19 05/07/20 History [Fenofibrate] Omeprazole [PriLOSEC] 40 mg PO HS 03/04/20 05/07/20 History Atorvastatin [Lipitor] 40 mg PO HS 30 Days tab 04/30/20 05/07/20 Rx Doxepin [SINEquan] 50 mg PO HS 30 Days cap 04/30/20 05/07/20 Rx Ibuprofen [Motrin] 800 mg PO TID PRN tab 04/30/20 05/07/20 Rx OLANZapine [ZyPREXA] 7.5 mg PO HS 30 Days tablet 04/30/20 05/07/20 Rx Prazosin [Minipress] 2 mg PO HS 30 Days cap 04/30/20 05/07/20 Rx Venlafaxine HCl ER [Effexor XR] 150 mg PO DAILY 30 Days cap.er.24h 04/30/20 05/07/20 Rx hydrOXYzine pamoate [Vistaril] 50 mg PO TID PRN 30 Days cap 04/30/20 05/07/20 Rx Acetaminophen Tab [Tylenol Tab] 500 mg PO Q6HR PRN 05/07/20 05/07/20 History Cyclobenzaprine [Flexeril] 10 mg PO TID PRN 05/07/20 05/07/20 History Nicotine 21Mg/24Hr Patch [Habitrol] 1 patch TRANSDERM DAILY PRN 05/07/20 05/07/20 History clindamycin HCL [Cleocin] 300 mg PO Q8H 05/07/20 05/07/20 History Allergies Allergy/AdvReac Type Severity Reaction Status Date / Time bee pollen Allergy Severe Anaphylaxis Verified 05/07/20 20:33 haloperidol [From Haldol] Allergy Severe QUIT Verified 05/07/20 20:33 BREATHING haloperidol lactate Allergy Severe QUIT Verified 05/07/20 20:33 [From Haldol] BREATHING latex Allergy Severe RASH-THROAT Verified 05/07/20 20:33 CLOSES tramadol Allergy Severe Nausea & Verified 05/07/20 20:33 Vomiting pineapple Allergy Anaphylaxis Verified 05/07/20 20:33 prednisone Allergy THROAT Verified 05/07/20 20:33 SWELLS spider venom Allergy Swelling Verified 05/07/20 20:33 Sulfa (Sulfonamide Allergy THROAT Verified 05/07/20 20:33 Antibiotics) SWELLS venom-wasp Allergy Swelling Verified 05/07/20 20:33 venom-wasp protein Allergy Swelling Verified 05/07/20 20:33 promethazine HCl AdvReac Severe Nausea & Verified 05/07/20 20:33 [From Phenergan] Vomiting amoxicillin AdvReac Nausea & Verified 05/07/20 20:33 Vomiting ANTS Allergy Mild Anaphylaxis Uncoded 05/07/20 19:00 cherries Allergy Anaphylaxis Uncoded 05/07/20 19:00 coconut Allergy Anaphylaxis Uncoded 05/07/20 19:00 Physical Exam Vitals: Vital Signs Temp Pulse Pulse Resp BP BP Pulse Ox 05/08/20 11:56 97.5 F L 89 16 125/83 96 05/08/20 06:00 98.6 F 122 H 16 106/71 96 05/07/20 22:59 96 18 160/93 98 05/07/20 22:30 101.1 F H 115 H 18 152/87 97 05/07/20 20:25 102.5 F H 130 H 18 142/98 100 05/07/20 18:58 98.6 F 108 H 18 126/84 100 Intake and Output 05/07/20 05/08/20 05/08/20 22:59 06:59 14:59 Other: # Voids 1 Weight 98.43 kg PHYSICAL EXAMINATION: GENERAL: The patient is alert and oriented x3, not in any acute distress. Well developed, well nourished. HEENT: Pupils are round and equally reacting to light. EOMI. No scleral icterus. No conjunctival pallor. Normocephalic, atraumatic. No pharyngeal erythema. No thyromegaly. CARDIOVASCULAR: S1 and S2 present. No murmurs, rubs, or gallops. PULMONARY: Chest is clear to auscultation, no wheezing or crackles. ABDOMEN: Soft, and is in the right upper quadrant and epigastric area, nondis tended, normoactive bowel sounds. No palpable organomegaly. MUSCULOSKELETAL: No joint swelling or deformity. EXTREMITIES: No cyanosis, clubbing, or pedal edema. NEUROLOGICAL: Gross neurological examination did not reveal any focal deficits. SKIN: No rashes. Results CBC & Chem 7: 05/08/20 08:52 05/08/20 08:52 Labs: Abnormal Lab Results - Last 24 Hours (Table) 05/07/20 05/07/20 05/07/20 Range/Units 20:21 20:21 21:30 WBC 11.6 H (3.8-10.6) k/uL RBC (3.80-5.40) m/uL Hct (34.0-46.0) % Neutrophils # 9.0 H (1.3-7.7) k/uL Potassium 5.3 H (3.5-5.1) mmol/L Chloride 110 H (98-107) mmol/L Carbon Dioxide 16 L (22-30) mmol/L BUN (7-17) mg/dL Glucose 191 H (74-99) mg/dL POC Glucose (mg/dL) (75-99) mg/dL Lipase 996 H (23-300) U/L Urine Glucose (UA) 3+ H (Negative) 05/08/20 05/08/20 05/08/20 Range/Units 07:15 08:52 08:52 WBC (3.8-10.6) k/uL RBC 3.65 L (3.80-5.40) m/uL Hct 33.5 L (34.0-46.0) % Neutrophils # (1.3-7.7) k/uL Potassium (3.5-5.1) mmol/L Chloride 111 H (98-107) mmol/L Carbon Dioxide 17 L (22-30) mmol/L BUN 6 L (7-17) mg/dL Glucose 148 H (74-99) mg/dL POC Glucose (mg/dL) 148 H (75-99) mg/dL Lipase 568 H (23-300) U/L Urine Glucose (UA) (Negative) 05/08/20 Range/Units 11:36 WBC (3.8-10.6) k/uL RBC (3.80-5.40) m/uL Hct (34.0-46.0) % Neutrophils # (1.3-7.7) k/uL Potassium (3.5-5.1) mmol/L Chloride (98-107) mmol/L Carbon Dioxide (22-30) mmol/L BUN (7-17) mg/dL Glucose (74-99) mg/dL POC Glucose (mg/dL) 148 H (75-99) mg/dL Lipase (23-300) U/L Urine Glucose (UA) (Negative) Thrombosis Risk Factor Assmnt - Choose All That Apply Each Factor Represents 1 point: Obesity (BMI >25) Thrombosis Risk Factor Assessment Total Risk Factor Score: 1 Thrombosis Risk Factor Assessment Level: Low Risk Assessment and Plan Plan: Acute pancreatitis: Patient appears to have acute idiopathic pancreatitis. Due to IV fluids patient will remain nothing by mouth Will add Toradol for pain and to avoid excess opiate analgesia type 2 diabetes mellitus patient is presently not on any medications for diabetes with us with the monitor the blood sugars -Gastroesophageal reflux disease -Depression Nicotine use: Counseling was provided patient although has not been smoking for about a week
[2020-05-08] MEDS ORDERED: SODIUM CHLORIDE 0.9% 1,000 ML IV ONE (15:03)
[2020-05-08 17:20] LABS: Glucose,Whole Blood 116 mg/dL (75-99)
[2020-05-08 20:28] LABS: Glucose,Whole Blood 127 mg/dL (75-99)
[2020-05-08] MEDS: FENOFIBRATE 160 MG TAB PO SCH (22:30)
[2020-05-08] MEDS: PANTOPRAZOLE 40 MG TABLET PO SCH (22:30)
--- NOTE | 2020-05-08 22:44 | P.CONS ---
History of Present Illness - Reason for Consult Consult date: 05/08/20 Pancreatitis Requesting physician: Lizbet Magallanes - Chief Complaint Abdominal pain - History of Present Illness 29-year-old female with multiple medical comorbidities including diabetes mellitus, endometriosis, GERD, fatty liver disease, irritable bowel syndrome and prior hospitalizations for pancreatitis who presented to the hospital with complaints of abdominal pain with nausea and vomiting. She reports severe abdominal pain which started in her back and then radiated across her abdomen. Pain was described as sharp in nature. Patient was found to have computed tomography scan findings consistent with acute pancreatitis with some inflammation noted in the pancreatic head. Ultrasound of the abdomen negative with no gallstones or ductal dilation noted. Laboratory evaluation significant for lipase of 568, hemoglobin 11.6, total bilirubin 0.7, alkaline phosphatase 46, AST 30 and ALT 17. Patient denies any alcohol use. She is on evaluation the past with no etiology to explain episodes of pancreatitis in past. She recently was on clindamycin for toothache. Previously she had a colonoscopy in 2018 which was normal and had an EGD in 05/16/2019 significant for mild gastritis for evaluation of abdominal pain. She is seen lying in bed still reporting some pain currently nothing by mouth and receiving fluid hydration and pain control. Review of Systems REVIEW OF SYSTEMS: CONSTITUTIONAL: Denies any fevers, chills, weight change or fatigue. CARDIOVASCULAR: Denies any chest pain, palpitations high or low blood pressures RESPIRATORY: Denies any shortness of breath, hemoptysis or cough. GENITOURINARY: No dysuria or hematuria. MUSCULOSKELETAL: No weakness reported. SKIN: Denies any new rashes or lesions, jaundice or pallor. PSYCHIATRIC: Denies any depression or anxiety. NEUROLOGY: Denies headache, denies any new focal deficits. EARS/NOSE/THROAT: No recent hearing change, congestion, nasal discharge or sore throat. EYES: No pain in eyes, discharge or change in vision. GASTROINTESTINAL: As per HPI. Past Medical History Past Medical History: Asthma, Diabetes Mellitus, GERD/Reflux Additional Past Medical History / Comment(s): migraines, degenerative disk disease, endometriosis, lupus, pancreatitis History of Any Multi-Drug Resistant Organisms: None Reported Past Surgical History: Orthopedic Surgery Additional Past Surgical History / Comment(s): laparoscopc surgery for endometriosis, cyst removed from left foot, EGD Past Anesthesia/Blood Transfusion Reactions: Previous Problems w/ Anesthesia Additional Past Anesthesia/Blood Transfusion Reaction / Comm: hard to wake up for 48-72 hours after laparoscopic surgery-was in hosp. for 3 days Past Psychological History: Anxiety, Depression, PTSD Smoking Status: Current every day smoker Past Alcohol Use History: None Reported Past Drug Use History: None Reported - Past Family History Mother Family Medical History: No Reported History Additional Family Medical History / Comment(s): hx migraines Father Family Medical History: Coronary Artery Disease (CAD), Hypertension Additional Family Medical History / Comment(s): ddd, alcoholism & drug use Medications and Allergies Home Medications Medication Instructions Recorded Confirmed Type EPINEPHrine [Epipen 2-Mike] 0.3 mg IM ONCE PRN 10/16/18 05/07/20 History SUMAtriptan succinate [Imitrex] 50 mg PO DAILY PRN 05/08/19 05/07/20 History Topiramate [Topamax] 100 mg PO HS 05/08/19 05/07/20 History tiZANidine [Zanaflex] 4 mg PO BID PRN 05/08/19 05/07/20 History Albuterol Inhaler [Ventolin Hfa 2 puff INHALATION RT-Q4H PRN 10/17/19 05/07/20 History Inhaler] Fenofibrate Nanocrystallized 145 mg PO HS 10/17/19 05/07/20 History [Fenofibrate] Omeprazole [PriLOSEC] 40 mg PO HS 03/04/20 05/07/20 History Atorvastatin [Lipitor] 40 mg PO HS 30 Days tab 04/30/20 05/07/20 Rx Doxepin [SINEquan] 50 mg PO HS 30 Days cap 04/30/20 05/07/20 Rx Ibuprofen [Motrin] 800 mg PO TID PRN tab 04/30/20 05/07/20 Rx OLANZapine [ZyPREXA] 7.5 mg PO HS 30 Days tablet 04/30/20 05/07/20 Rx Prazosin [Minipress] 2 mg PO HS 30 Days cap 04/30/20 05/07/20 Rx Venlafaxine HCl ER [Effexor XR] 150 mg PO DAILY 30 Days cap.er.24h 04/30/20 05/07/20 Rx hydrOXYzine pamoate [Vistaril] 50 mg PO TID PRN 30 Days cap 04/30/20 05/07/20 Rx Acetaminophen Tab [Tylenol Tab] 500 mg PO Q6HR PRN 05/07/20 05/07/20 History Cyclobenzaprine [Flexeril] 10 mg PO TID PRN 05/07/20 05/07/20 History Nicotine 21Mg/24Hr Patch [Habitrol] 1 patch TRANSDERM DAILY PRN 05/07/20 05/07/20 History clindamycin HCL [Cleocin] 300 mg PO Q8H 05/07/20 05/07/20 History Allergies Allergy/AdvReac Type Severity Reaction Status Date / Time bee pollen Allergy Severe Anaphylaxis Verified 05/07/20 20:33 haloperidol [From Haldol] Allergy Severe QUIT Verified 05/07/20 20:33 BREATHING haloperidol lactate Allergy Severe QUIT Verified 05/07/20 20:33 [From Haldol] BREATHING latex Allergy Severe RASH-THROAT Verified 05/07/20 20:33 CLOSES tramadol Allergy Severe Nausea & Verified 05/07/20 20:33 Vomiting pineapple Allergy Anaphylaxis Verified 05/07/20 20:33 prednisone Allergy THROAT Verified 05/07/20 20:33 SWELLS spider venom Allergy Swelling Verified 05/07/20 20:33 Sulfa (Sulfonamide Allergy THROAT Verified 05/07/20 20:33 Antibiotics) SWELLS venom-wasp Allergy Swelling Verified 05/07/20 20:33 venom-wasp protein Allergy Swelling Verified 05/07/20 20:33 promethazine HCl AdvReac Severe Nausea & Verified 05/07/20 20:33 [From Phenergan] Vomiting amoxicillin AdvReac Nausea & Verified 05/07/20 20:33 Vomiting ANTS Allergy Mild Anaphylaxis Uncoded 05/07/20 19:00 cherries Allergy Anaphylaxis Uncoded 05/07/20 19:00 coconut Allergy Anaphylaxis Uncoded 05/07/20 19:00 Physical Exam Vitals: Vital Signs Temp Pulse Pulse Resp BP BP Pulse Ox 05/08/20 11:56 97.5 F L 89 16 125/83 96 05/08/20 06:00 98.6 F 122 H 16 106/71 96 05/07/20 22:59 96 18 160/93 98 05/07/20 22:30 101.1 F H 115 H 18 152/87 97 05/07/20 20:25 102.5 F H 130 H 18 142/98 100 05/07/20 18:58 98.6 F 108 H 18 126/84 100 Intake and Output 05/07/20 05/08/20 05/08/20 22:59 06:59 14:59 Other: # Voids 1 Weight 98.43 kg On physical examination, patient appears comfortable in no apparent distress. HEAD: Normocephalic, atraumatic. EYES: No scleral icterus. No conjunctival injection. MOUTH: No lesions, tongue midline. NECK: Trachea midline, no gross abnormalities. CHEST: Clear to auscultation with no wheezing or rhonchi appreciated. HEART: Regular rate and rhythm. ABDOMEN: Soft, obese, diffusely tender to palpation. Bowel sounds are positive. No organomegaly. No guarding or rigidity. EXTREMITIES: No pedal edema. SKIN: No rashes, no jaundice. NEUROLOGIC: Alert and oriented x3. No focal deficits. Results CBC & Chem 7: 05/08/20 08:52 05/08/20 08:52 Labs: Abnormal Lab Results - Last 24 Hours (Table) 05/07/20 05/07/20 05/07/20 Range/Units 20:21 20:21 21:30 WBC 11.6 H (3.8-10.6) k/uL RBC (3.80-5.40) m/uL Hct (34.0-46.0) % Neutrophils # 9.0 H (1.3-7.7) k/uL Potassium 5.3 H (3.5-5.1) mmol/L Chloride 110 H (98-107) mmol/L Carbon Dioxide 16 L (22-30) mmol/L BUN (7-17) mg/dL Glucose 191 H (74-99) mg/dL POC Glucose (mg/dL) (75-99) mg/dL Lipase 996 H (23-300) U/L Urine Glucose (UA) 3+ H (Negative) 05/08/20 05/08/20 05/08/20 Range/Units 07:15 08:52 08:52 WBC (3.8-10.6) k/uL RBC 3.65 L (3.80-5.40) m/uL Hct 33.5 L (34.0-46.0) % Neutrophils # (1.3-7.7) k/uL Potassium (3.5-5.1) mmol/L Chloride 111 H (98-107) mmol/L Carbon Dioxide 17 L (22-30) mmol/L BUN 6 L (7-17) mg/dL Glucose 148 H (74-99) mg/dL POC Glucose (mg/dL) 148 H (75-99) mg/dL Lipase 568 H (23-300) U/L Urine Glucose (UA) (Negative) 05/08/20 Range/Units 11:36 WBC (3.8-10.6) k/uL RBC (3.80-5.40) m/uL Hct (34.0-46.0) % Neutrophils # (1.3-7.7) k/uL Potassium (3.5-5.1) mmol/L Chloride (98-107) mmol/L Carbon Dioxide (22-30) mmol/L BUN (7-17) mg/dL Glucose (74-99) mg/dL POC Glucose (mg/dL) 148 H (75-99) mg/dL Lipase (23-300) U/L Urine Glucose (UA) (Negative) CT scan - abdomen: report reviewed (Computed tomography scan of the abdomen with findings of inflammation in the pancreatic head consistent with alcoholic- related pancreatitis.) Assessment and Plan (1) Pancreatitis Narrative/Plan: 21-year-old female with multiple medical comorbidities including prior episodes of pancreatitis presented to the hospital for evaluation of severe epigastric and back pain with associated nausea and vomiting found to have elevation in her lipase and computed tomography scan findings consistent with uncomplicated parietitis with inflammation noted in the pancreatic head. Ultrasound of the abdomen negative for any gallstones or ductal dilation. Liver enzymes within normal limits. Patient denies any alcohol use. Current Visit: Yes Status: Acute Code(s): K85.90 - ACUTE PANCREATITIS WITHOUT NECROSIS OR INFECTION, UNSP SNOMED Code(s): 42553253 (2) Abdominal pain Current Visit: Yes Status: Acute Code(s): R10.9 - UNSPECIFIED ABDOMINAL PAIN SNOMED Code(s): 47798302 (3) Nausea & vomiting Current Visit: Yes Status: Acute Code(s): R11.2 - NAUSEA WITH VOMITING, UNSPECIFIED SNOMED Code(s): 10610457 Plan: Supportive care Nothing by mouth except for ice chips Continue pain control Continue IV fluid hydration Fluid bolus ordered Tobacco see cessation counseled as this can be contributing to his episodes of p ancreatitis Follow-up with GI service as scheduled after discharge Thank you for allowing us to participate in the care of the patient
[2020-05-08] MEDS: NICOTINE 21MG/24HR PATCH TRANSDERM PRN (23:27)
[2020-05-09] MEDS: CLINDAMYCIN 150 MG CAP PO SCH ×4 (00:30→23:25)
[2020-05-09] MEDS: HYDROmorphone 0.5 MG/0.5 ML SYRINGE IVP PRN ×3 (02:29→19:27)
[2020-05-09] MEDS: SODIUM CHLORIDE 0.9% 1,000 ML IV SCH ×3 (06:58→16:33)
[2020-05-09 07:14] LABS: HCT 30.5 % (34.0-46.0); Hypochromasia Slight; MCH 31.7 pg (25.0-35.0); MCHC 32.6 g/dL (31.0-37.0); Mean Platelet Volume 8.6; Platelet Count 241 k/uL (150-450); RBC 3.13 m/uL (3.80-5.40); WBC 7.4 k/uL (3.8-10.6)
[2020-05-09 07:16] LABS: HGB 9.9 gm/dL (11.4-16.0); MCV 97.3 fL (80.0-100.0)
[2020-05-09 07:35] LABS: Glucose,Whole Blood 129 mg/dL (75-99)
[2020-05-09] MEDS: VENLAFAXINE HCL ER 150 MG CAP PO SCH (07:52)
[2020-05-09] MEDS: KETOROLAC 15 MG/ML 1 ML VIAL IVP PRN ×3 (08:00→23:32)
[2020-05-09 09:38] LABS: African American GFR (CKD) 116.3 (60.0-200.0); Albumin 3.5 g/dL (3.80-4.90); Albumin/Globulin Ratio 2.06 (1.60-3.17); Anion Gap 7.7 mmol/L (4.00-12.00); Calcium 9.1 mg/dL (8.7-10.3); Carbon Dioxide 20.3 mmol/L (21.6-31.8); Globulin 1.7 g/dL (1.6-3.3); Non-African American GFR(CKD) 100.3 (60.0-200.0); Potassium 4.2 mmol/L (3.5-5.5); Total Bilirubin 0.2 mg/dL (0.2-1.2); Total Protein 5.2 g/dL (6.2-8.2)
[2020-05-09] MEDS: hydrOXYzine pamoate 25 MG CAP PO PRN ×2 (10:41→19:30)
[2020-05-09 11:42] LABS: Glucose,Whole Blood 132 mg/dL (75-99)
--- NOTE | 2020-05-09 12:43 | P.PN ---
Subjective Progress Note Date: 05/09/20 Patient is a pleasant 29-year-old female complaining came in with complaints of epigastric and right upper quadrant sharp abdominal pain radiating to the back. Patient is found to have pancreatitis on the computed tomography scan as well as elevated lipase. Patient denied any alcohol use. Still has gallbladder although there is no cholelithiasis on ultrasound. His third episode of pancreatitis in the past it was believed her pancreatitis is secondary to medications those were discontinued. Patient is supposed to get endoscopic ultrasound as an outpatient. Patient is on clindamycin the course of which she'll be done by tomorrow for toothache. Patient is still nauseous. Patient had multiple episodes of nausea vomiting since yesterday 05/09/2020 Patient is seen and evaluated this morning continues to have mild upper abdominal pain states has slightly improved and is requesting to advance diet to clear liquids. Patient has been nothing by mouth with ice chips. GI is following. Will advance to clear liquids and monitor for tolerance. Lipase repeated today and is markedly improved at 71. Sodium is 137 and potassium is 4.2 current creatinine is 0.8. Will discontinue IV fluids. Patient encouraged to increase activity and sit up in the chair more often as she has been laying in bed. Patient continues to have intermittent nausea although denies any vomiting at this time. Review of systems: Constitutional: No reports of fatigue, fever, or chills Cardiovascular: No reports of chest pain or palpitations Respiratory: No reports of shortness of breath or cough GI: rePorts intermittent nausea, no reports of vomiting, or diarrhea : No reports of dysuria or retention Neurovascular: No reports of weakness or numbness All medications have been reviewed Objective - Vital Signs Vital signs: Vital Signs Temp 98.2 F 05/09/20 03:53 Pulse 108 H 05/09/20 03:53 Resp 18 05/09/20 03:53 BP 96/65 05/09/20 03:53 Pulse Ox 94 L 05/09/20 03:53 Intake & Output 05/08/20 05/09/20 05/09/20 18:59 06:59 18:59 Intake Total 1800 Balance 1800 Intake: Intake, IV Titration 1800 Amount Sodium Chloride 0.9% 1, 1800 000 ml @ 150 mls/hr IV . Q6H40M [facility] Rx#:[id number] Other: Voiding Method Toilet Toilet # Voids 1 3 3 - Exam GENERAL: The patient is alert and oriented x3, not in any acute distress. Well d eveloped, well nourished. HEENT: Pupils are round and equally reacting to light. EOMI. No scleral icterus. No conjunctival pallor. Normocephalic, atraumatic. No pharyngeal erythema. No thyromegaly. CARDIOVASCULAR: S1 and S2 present. No murmurs, rubs, or gallops. PULMONARY: Chest is clear to auscultation, no wheezing or crackles. ABDOMEN: Soft, mild tenderness noted in the right upper quadrant and epigastric area upon palpation, nondistended, normoactive bowel sounds. No palpable organomegaly. Slightly improved MUSCULOSKELETAL: No joint swelling or deformity. EXTREMITIES: No cyanosis, clubbing, or pedal edema. NEUROLOGICAL: Gross neurological examination did not reveal any focal deficits. SKIN: No rashes. - Labs CBC & Chem 7: 05/09/20 05:58 05/09/20 05:58 Labs: Abnormal Lab Results - Last 24 Hours (Table) 05/08/20 05/08/20 05/09/20 Range/Units 17:18 20:25 05:58 RBC (3.80-5.40) m/uL Hgb (11.4-16.0) gm/dL Hct (34.0-46.0) % Carbon Dioxide 20.3 L (21.6-31.8) mmol/L BUN 8.0 L (9.0-27.0) mg/dL BUN/Creatinine Ratio 10.00 L (12.00-20.00) Ratio Glucose 145 H (70-110) mg/dL POC Glucose (mg/dL) 116 H 127 H (75-99) mg/dL Alkaline Phosphatase 34 L (41-126) U/L Total Protein 5.2 L (6.2-8.2) g/dL Albumin 3.50 L (3.80-4.90) g/dL Lipase 71 H (14-63) U/L 05/09/20 05/09/20 05/09/20 Range/Units 05:58 07:34 11:41 RBC 3.13 L (3.80-5.40) m/uL Hgb 9.9 L D (11.4-16.0) gm/dL Hct 30.5 L (34.0-46.0) % Carbon Dioxide (21.6-31.8) mmol/L BUN (9.0-27.0) mg/dL BUN/Creatinine Ratio (12.00-20.00) Ratio Glucose (70-110) mg/dL POC Glucose (mg/dL) 129 H 132 H (75-99) mg/dL Alkaline Phosphatase (41-126) U/L Total Protein (6.2-8.2) g/dL Albumin (3.80-4.90) g/dL Lipase (14-63) U/L Microbiology - Last 24 Hours (Table) 05/07/20 22:00 Blood Culture - Preliminary Blood No Growth after 24 hours 05/07/20 22:19 Blood Culture - Preliminary Blood No Growth after 24 hours Assessment and Plan Assessment: -Acute pancreatitis: Patient appears to have acute idiopathic pancreatitis. Lipase improving and will attempt clear liquid diet and monitor for tolerance as abdominal discomfort has slightly improved. GI is following. Encourage increase in activity and avoid excess opiates -type 2 diabetes mellitus patient is presently not on any medications for diabetes continue to monitor blood sugars before meals at bedtime and may need sliding scale this continues to be elevated -Gastroesophageal reflux disease -Depression -Nicotine use: Counseling was provided patient although has not been smoking for about a week Plan: IV fluids have been discontinued will continue with clear liquid diet and monitor for tolerance and advance slowly. Patient currently receiving oral gentamicin for recent tooth infection and will finish the dosing tonight and discontinue. GI is following. Instructed the patient increase activity as tolerated as she has been mostly in the bed. Will continue to monitor with the possibility of discharge in 24-48 hours.
--- NOTE | 2020-05-09 16:29 | P.PN ---
Subjective Progress Note Date: 05/09/20 Principal diagnosis: Pancreatitis She was seen and examined this morning with complaints of having still severe abdominal pain. She denies vomiting but states she is nauseated. She denies any diarrhea. She has been nothing by mouth with ice chips. No fever or acute changes through the night. Objective - Vital Signs Vital signs: Vital Signs Temp 98.2 F 05/09/20 03:53 Pulse 108 H 05/09/20 03:53 Resp 18 05/09/20 03:53 BP 96/65 05/09/20 03:53 Pulse Ox 94 L 05/09/20 03:53 Intake & Output 05/08/20 05/09/20 05/09/20 18:59 06:59 18:59 Intake Total 1800 Balance 1800 Intake: Intake, IV Titration 1800 Amount Sodium Chloride 0.9% 1, 1800 000 ml @ 150 mls/hr IV . Q6H40M [facility] Rx#:[id number] Other: Voiding Method Toilet Toilet # Voids 1 3 3 - Exam General appearance: The patient is alert, oriented, appears in no acute distress. Obese. HET: Head is normocephalic and atraumatic. Conjunctiva pink. Sclera anicteric. Neck: Supple without lymphadenopathy. Abdomen: Soft, upper quadrant and epigastric tenderness, nondistended with bowel sounds. No guarding or rigidity. Extremities: Normal skin color and turgor. No pedal edema Neurological: No focal deficits. Alert and oriented 3. - Labs CBC & Chem 7: 05/09/20 05:58 05/09/20 05:58 Labs: Abnormal Lab Results - Last 24 Hours (Table) 05/08/20 05/08/20 05/08/20 Range/Units 08:52 08:52 11:36 RBC 3.65 L (3.80-5.40) m/uL Hgb (11.4-16.0) gm/dL Hct 33.5 L (34.0-46.0) % Chloride 111 H (98-107) mmol/L Carbon Dioxide 17 L (22-30) mmol/L BUN 6 L (7-17) mg/dL Glucose 148 H (74-99) mg/dL POC Glucose (mg/dL) 148 H (75-99) mg/dL Lipase 568 H (23-300) U/L 05/08/20 05/08/20 05/09/20 Range/Units 17:18 20:25 05:58 RBC 3.13 L (3.80-5.40) m/uL Hgb 9.9 L D (11.4-16.0) gm/dL Hct 30.5 L (34.0-46.0) % Chloride (98-107) mmol/L Carbon Dioxide (22-30) mmol/L BUN (7-17) mg/dL Glucose (74-99) mg/dL POC Glucose (mg/dL) 116 H 127 H (75-99) mg/dL Lipase (23-300) U/L 05/09/20 Range/Units 07:34 RBC (3.80-5.40) m/uL Hgb (11.4-16.0) gm/dL Hct (34.0-46.0) % Chloride (98-107) mmol/L Carbon Dioxide (22-30) mmol/L BUN (7-17) mg/dL Glucose (74-99) mg/dL POC Glucose (mg/dL) 129 H (75-99) mg/dL Lipase (23-300) U/L Microbiology - Last 24 Hours (Table) 05/07/20 22:00 Blood Culture - Preliminary Blood No Growth after 24 hours 05/07/20 22:19 Blood Culture - Preliminary Blood No Growth after 24 hours Assessment and Plan (1) Pancreatitis Narrative/Plan: 21-year-old female with multiple medical comorbidities including prior episodes of pancreatitis presented to the hospital for evaluation of severe epigastric and back pain with associated nausea and vomiting found to have elevation in her lipase and computed tomography scan findings consistent with uncomplicated parietitis with inflammation noted in the pancreatic head. Ultrasound of the abdomen negative for any gallstones or ductal dilation. Liver enzymes within normal limits. Patient denies any alcohol use. Current Visit: Yes Status: Acute Code(s): K85.90 - ACUTE PANCREATITIS WITHOUT NECROSIS OR INFECTION, UNSP SNOMED Code(s): 10418586 (2) Nausea & vomiting Current Visit: Yes Status: Acute Code(s): R11.2 - NAUSEA WITH VOMITING, UNSPECIFIED SNOMED Code(s): 39935436 (3) Abdominal pain Current Visit: Yes Status: Acute Code(s): R10.9 - UNSPECIFIED ABDOMINAL PAIN SNOMED Code(s): 06655155 Plan: Supportive care Nothing by mouth except for ice chips, as to clear liquids feeling better this evening Continue pain control Continue IV fluid hydration Fluid bolus ordered Tobacco use cessation counseled as this can be contributing to his episodes of pancreatitis Follow-up with GI service as scheduled after discharge Thank you for allowing us to participate in the care of the patient Dr. Barber I agree with the dictator's note, documented as a scribe by Roxana Torres.
[2020-05-09 17:10] LABS: Glucose,Whole Blood 181 mg/dL (75-99)
[2020-05-09] MEDS: PANTOPRAZOLE 40 MG TABLET PO SCH (19:27)
[2020-05-09] MEDS: PRAZOSIN 1 MG CAP PO SCH (19:29)
[2020-05-09] MEDS: DOXEPIN 25 MG CAP PO SCH (19:29)
[2020-05-09] MEDS: OLANZapine 7.5 MG TAB PO SCH (19:29)
[2020-05-09] MEDS: FENOFIBRATE 160 MG TAB PO SCH (19:30)
[2020-05-09] MEDS: TOPIRAMATE 25 MG TAB PO SCH (19:30)
[2020-05-09] MEDS: ATORVASTATIN 40 MG TAB PO SCH (19:32)
[2020-05-09 20:51] LABS: Glucose,Whole Blood 156 mg/dL (75-99)
[2020-05-09] MEDS: NICOTINE 21MG/24HR PATCH TRANSDERM PRN (23:25)
[2020-05-10] MEDS: tiZANidine 4 MG TAB PO PRN (00:01)
[2020-05-10] MEDS: SODIUM CHLORIDE 0.9% 1,000 ML IV SCH ×2 (05:13→15:03)
[2020-05-10 06:54] LABS: Glucose,Whole Blood 178 mg/dL (75-99)
[2020-05-10] MEDS: KETOROLAC 15 MG/ML 1 ML VIAL IVP PRN (08:06)
[2020-05-10] MEDS: VENLAFAXINE HCL ER 150 MG CAP PO SCH (08:06)
[2020-05-10] MEDS: CLINDAMYCIN 150 MG CAP PO SCH (08:06)
[2020-05-10] MEDS: HYDROmorphone 0.5 MG/0.5 ML SYRINGE IVP PRN ×2 (09:02→13:50)
[2020-05-10 11:05] VITALS: BP 143/85; PULSE 71; RESP 18; TEMP 97.9
[2020-05-10 11:37] LABS: Glucose,Whole Blood 133 mg/dL (75-99)
[2020-05-10 12:50] VITALS: BMI 37.2
--- NOTE | 2020-05-10 14:15 | P.PN ---
Subjective Progress Note Date: 05/10/20 Principal diagnosis: Pancreatitis She was seen and examined up in bed talking on the phone and appeared in no pain or distress. The patient states she still having abdominal pain and not tolerating her clear liquid diet well. She states she has some mild nausea but no vomiting. Objective - Vital Signs Vital signs: Vital Signs Temp 97.9 F 05/10/20 11:04 Pulse 71 05/10/20 11:04 Resp 18 05/10/20 11:04 BP 143/85 05/10/20 11:04 Pulse Ox 96 05/10/20 11:04 Intake & Output 05/09/20 05/10/20 05/10/20 18:59 06:59 18:59 Intake Total 1260 Balance 1260 Weight 98.43 kg Intake: Intake, IV Titration 900 Amount Sodium Chloride 0.9% 1, 900 000 ml @ 75 mls/hr IV . [id number] [facility] Rx#:[id number] Oral 360 Other: Voiding Method Toilet Toilet # Voids 3 2 # Bowel Movements 0 - Exam General appearance: The patient is alert, oriented, appears in no acute distress. Obese. HET: Head is normocephalic and atraumatic. Conjunctiva pink. Sclera anicteric. Neck: Supple without lymphadenopathy. Abdomen: Soft, upper quadrant and epigastric tenderness, nondistended with bowel sounds. No guarding or rigidity. Extremities: Normal skin color and turgor. No pedal edema Neurological: No focal deficits. Alert and oriented 3. - Labs CBC & Chem 7: 05/09/20 05:58 05/09/20 05:58 Labs: Abnormal Lab Results - Last 24 Hours (Table) 05/09/20 05/09/20 05/10/20 Range/Units 17:08 20:50 06:53 POC Glucose (mg/dL) 181 H 156 H 178 H (75-99) mg/dL 05/10/20 Range/Units 11:35 POC Glucose (mg/dL) 133 H (75-99) mg/dL Microbiology - Last 24 Hours (Table) 05/07/20 22:00 Blood Culture - Preliminary Blood No Growth after 48 hours 05/07/20 22:19 Blood Culture - Preliminary Blood No Growth after 48 hours Assessment and Plan (1) Pancreatitis Narrative/Plan: 21-year-old female with multiple medical comorbidities including prior episodes of pancreatitis presented to the hospital for evaluation of severe epigastric and back pain with associated nausea and vomiting found to have elevation in her lipase and computed tomography scan findings consistent with uncomplicated parietitis with inflammation noted in the pancreatic head. Ultrasound of the abdomen negative for any gallstones or ductal dilation. Liver enzymes within normal limits. Patient denies any alcohol use. Current Visit: Yes Status: Acute Code(s): K85.90 - ACUTE PANCREATITIS WITHOUT NECROSIS OR INFECTION, UNSP SNOMED Code(s): 03682027 (2) Nausea & vomiting Current Visit: Yes Status: Acute Code(s): R11.2 - NAUSEA WITH VOMITING, UNSPECIFIED SNOMED Code(s): 89358239 (3) Abdominal pain Current Visit: Yes Status: Acute Code(s): R10.9 - UNSPECIFIED ABDOMINAL PAIN SNOMED Code(s): 27582484 Plan: Supportive care Advance to full liquid diet Continue pain control, is with patient to use Toradol versus Dilaudid were changed to by mouth pain medication Continue IV fluid hydration Tobacco use cessation counseled as this can be contributing to his episodes of pancreatitis Follow-up with GI service as scheduled after discharge Thank you for allowing us to participate in the care of the patient, she may be discharged home from a gastroenterology standpoint Dr. Barber I agree with the dictator's note, documented as a scribe by Roxana Torres.
--- NOTE | 2020-05-13 08:55 | P.DS ---
Providers Date of admission: 05/07/20 22:36 Expected date of discharge: 05/10/20 Attending physician: Teo Leblanc Consults: 05/07/20 22:28 Consult Physician Routine Consulting Provider: Tavares Barber Consult Reason/Comments: pancreatitis Do you want consulting provider notified?: Yes Primary care physician: Isi Carolina Hospital Course: Final diagnosis -Acute pancreatitis: Patient appears to have acute idiopathic pancreatitis -type 2 diabetes mellitus -Gastroesophageal reflux disease -Depression -Continued ongoing Nicotine use Discharge disposition Patient is being discharged in a stable condition with guarded prognosis to home. Patient will follow-up with Dr. Carolina in the outpatient setting upon discharge. Patient will also be following up outpatient with GI. Patient instructed to continue with clear liquids and advance slowly to low fiber as tolerated. Total time taken is greater than 35 minutes. Hospital course This is a 29-year-old female who was recently admitted with abdominal pain and acute pancreatitis and was being closely monitored. Patient was seen and evaluated by GI recommending conservative treatment with low advancing diet and fluids. Patient continued to request IV pain medications and was tolerating clear liquids with no increasing nausea or vomiting noted. Labs improved and patient continued to have some abdominal discomfort although somewhat improved. Patient instructed to continue with clear liquids slowly advancing to full liquids and then low fiber diet as tolerated. Patient also instructed to follow-up with primary care provider upon discharge along with GI in the outpatient setting. Currently no reports of chest pain, shortness of breath, or palpitations. Patient is afebrile. No reports of nausea or vomiting and patient is tolerating diet. Patient will be discharged home today. On exam vital signs are stable. Temp is 97.9F, pulse is 71, respirations are 18, blood pressure is 143/85, oxygen saturation is 96% on room air. Cardio S1, S2 are muffled. Respiratory system shows diminished breath sounds at the bases with no wheezing or rhonchi noted. Abdomen is soft, obese, and nontender. Nervous system shows no focal deficits. Please refer to medication reconciliation sheet for a list of medications. Patient Condition at Discharge: Stable Plan - Discharge Summary Discharge Rx Participant: Yes New Discharge Prescriptions: New Ketorolac [Toradol] 10 mg PO Q6HR #20 tab Continue EPINEPHrine [Epipen 2-Mike] 0.3 mg IM ONCE PRN PRN Reason: Anaphylaxis tiZANidine [Zanaflex] 4 mg PO BID PRN PRN Reason: Muscle Spasm Topiramate [Topamax] 100 mg PO HS SUMAtriptan succinate [Imitrex] 50 mg PO DAILY PRN PRN Reason: Migraine Headache Albuterol Inhaler [Ventolin Hfa Inhaler] 2 puff INHALATION RT-Q4H PRN PRN Reason: Shortness Of Breath Fenofibrate Nanocrystallized [Fenofibrate] 145 mg PO HS Omeprazole [PriLOSEC] 40 mg PO HS Venlafaxine HCl ER [Effexor XR] 150 mg PO DAILY 30 Days cap.er.24h Atorvastatin [Lipitor] 40 mg PO HS 30 Days tab Prazosin [Minipress] 2 mg PO HS 30 Days cap hydrOXYzine pamoate [Vistaril] 50 mg PO TID PRN 30 Days cap PRN Reason: Anxiety OLANZapine [ZyPREXA] 7.5 mg PO HS 30 Days tablet Doxepin [SINEquan] 50 mg PO HS 30 Days cap Acetaminophen Tab [Tylenol] 500 mg PO Q6HR PRN PRN Reason: Pain Cyclobenzaprine [Flexeril] 10 mg PO TID PRN PRN Reason: BACK PAIN Nicotine 21Mg/24Hr Patch [Habitrol] 1 patch TRANSDERM DAILY PRN PRN Reason: Nicotine Cravings Ibuprofen [Motrin] 800 mg PO TID PRN #30 tab PRN Reason: Pain Discontinued clindamycin HCL [Cleocin] 300 mg PO Q8H Discharge Medication List EPINEPHrine [Epipen 2-Mike] 0.3 mg IM ONCE PRN 10/16/18 [History] SUMAtriptan succinate [Imitrex] 50 mg PO DAILY PRN 05/08/19 [History] Topiramate [Topamax] 100 mg PO HS 05/08/19 [History] tiZANidine [Zanaflex] 4 mg PO BID PRN 05/08/19 [History] Albuterol Inhaler [Ventolin Hfa Inhaler] 2 puff INHALATION RT-Q4H PRN 10/17/19 [History] Fenofibrate Nanocrystallized [Fenofibrate] 145 mg PO HS 10/17/19 [History] Omeprazole [PriLOSEC] 40 mg PO HS 03/04/20 [History] Atorvastatin [Lipitor] 40 mg PO HS 30 Days tab 04/30/20 [Rx] Doxepin [SINEquan] 50 mg PO HS 30 Days cap 04/30/20 [Rx] OLANZapine [ZyPREXA] 7.5 mg PO HS 30 Days tablet 04/30/20 [Rx] Prazosin [Minipress] 2 mg PO HS 30 Days cap 04/30/20 [Rx] Venlafaxine HCl ER [Effexor XR] 150 mg PO DAILY 30 Days cap.er.24h 04/30/20 [Rx] hydrOXYzine pamoate [Vistaril] 50 mg PO TID PRN 30 Days cap 04/30/20 [Rx] Acetaminophen Tab [Tylenol] 500 mg PO Q6HR PRN 05/07/20 [History] Cyclobenzaprine [Flexeril] 10 mg PO TID PRN 05/07/20 [History] Nicotine 21Mg/24Hr Patch [Habitrol] 1 patch TRANSDERM DAILY PRN 05/07/20 [History] Ibuprofen [Motrin] 800 mg PO TID PRN #30 tab 05/10/20 [Rx] Ketorolac [Toradol] 10 mg PO Q6HR #20 tab 05/10/20 [Rx] Follow up Appointment(s)/Referral(s): Isi Carolina MD [Primary Care Provider] - 1-2 days (The office states that they want you to call to make an appointment for same day appointment first thing next week.) Activity/Diet/Wound Care/Special Instructions: Activity Limited until follow-up Follow up with primary care provider upon discharge Follow-up with GI in the outpatient setting Alternate with Tylenol and Motrin or Toradol as needed for pain. Do not take Motrin and Toradol together. Continue with clear liquid diet and advance slowly as tolerated Discharge Disposition: HOME SELF-CARE
== END 2020-05-10 16:14 | disposition home or self-care (01) | DRG 440 ==
LOC: EC 18:57 → 5NMEDONC 22:36
PROVIDERS: ADMIT Hospitalist; ATTEND Hospitalist
DX: K85.00 Idiopathic acute pancreatitis without necrosis or infection (principal); E11.9 Type 2 diabetes mellitus without complications; Z20.822 Contact with and (suspected) exposure to COVID-19; E66.9 Obesity, unspecified; Z68.37 Body mass index [BMI] 37.0-37.9, adult; F17.210 Nicotine dependence, cigarettes, uncomplicated; F43.10 Post-traumatic stress disorder, unspecified; G89.29 Other chronic pain; M54.9 Dorsalgia, unspecified; K58.9 Irritable bowel syndrome, unspecified; K21.9 Gastro-esophageal reflux disease without esophagitis; K76.0 Fatty (change of) liver, not elsewhere classified; K08.89 Other specified disorders of teeth and supporting structures; J45.909 Unspecified asthma, uncomplicated; Z79.899 Other long term (current) drug therapy; Z82.49 Family history of ischemic heart disease and other diseases of the circulatory system; Z81.1 Family history of alcohol abuse and dependence; Z81.3 Family history of other psychoactive substance abuse and dependence; Z82.0 Family history of epilepsy and other diseases of the nervous system; Z88.5 Allergy status to narcotic agent; Z88.0 Allergy status to penicillin; Z88.2 Allergy status to sulfonamides; Z88.8 Allergy status to other drugs, medicaments and biological substances; Z91.030 Bee allergy status; Z91.040 Latex allergy status
CPT/HCPCS: 36415; 71046; 74177; 76705; 80048; 80053; 81003; 83605; 83690; 85025; 85027; 87040; 87635; 93005; 96361; 96365; 96372; 99285

== ENCOUNTER 2020-05-24 15:35 | Emergency (ER) | payer OTHER ==
[2020-05-24 15:39] VITALS: TEMP 98.5
[2020-05-24] MEDS ORDERED: SUMAtriptan succinate 6 MG/0.5 ML VIAL SQ STA (15:43)
[2020-05-24] MEDS ORDERED: ONDANSETRON 4 MG/2 ML VIAL IVP STA (15:43)
[2020-05-24] MEDS ORDERED: KETOROLAC 15 MG/ML 1 ML VIAL IVP STA (15:43)
[2020-05-24] MEDS ORDERED: SODIUM CHLORIDE 0.9% 1,000 ML IV STA (15:43)
--- NOTE | 2020-05-24 15:50 | ED ---
Headache HPI - General Chief Complaint: Headache Stated Complaint: Headache Time Seen by Provider: 05/24/20 15:41 Source: RN notes reviewed Mode of arrival: ambulatory Limitations: no limitations - History of Present Illness Initial Comments: Patient is a 29-year-old female that presents to emergency department complaining of migraine type headache. She noted that she does have a history of migraines but is currently in between medications due to her primary care physician switching them on her and not having some insurance issues. She noted that she has photophobia and phonophobia. She states that the pain is about 8 out of 10 currently and is tried taking Tylenol Motrin with no relief. She was in no apparent distress or pain while sitting up in bed during the exam and interview. She denied any vomiting shortness of breath chest pain diarrhea constipation fever fatigue chills lightheadedness dizziness - Related Data Home Medications Medication Instructions Recorded Confirmed EPINEPHrine [Epipen 2-Mike] 0.3 mg IM ONCE PRN 10/16/18 05/24/20 SUMAtriptan succinate [Imitrex] 50 mg PO DAILY PRN 05/08/19 05/24/20 Topiramate [Topamax] 100 mg PO HS 05/08/19 05/24/20 tiZANidine [Zanaflex] 4 mg PO BID PRN 05/08/19 05/24/20 Albuterol Inhaler [Ventolin Hfa 2 puff INHALATION RT-Q4H PRN 10/17/19 05/24/20 Inhaler] Omeprazole [PriLOSEC] 40 mg PO HS 03/04/20 05/24/20 Acetaminophen Tab [Tylenol] 500 mg PO Q6HR PRN 05/07/20 05/24/20 Cyclobenzaprine [Flexeril] 10 mg PO TID PRN 05/07/20 05/24/20 Nicotine 21Mg/24Hr Patch [Habitrol] 1 patch TRANSDERM DAILY PRN 05/07/20 05/24/20 Doxepin HCl 75 mg PO HS 05/24/20 05/24/20 PARoxetine [Paxil] 10 mg PO DAILY 05/24/20 05/24/20 Prazosin HCl 2 mg PO HS 05/24/20 05/24/20 hydrOXYzine pamoate [Vistaril] 50 mg PO QID PRN 05/24/20 05/24/20 Previous Rx's Medication Instructions Recorded Atorvastatin [Lipitor] 40 mg PO HS 30 Days tab 04/30/20 OLANZapine [ZyPREXA] 7.5 mg PO HS 30 Days tablet 04/30/20 Ibuprofen [Motrin] 800 mg PO TID PRN #30 tab 05/10/20 Ibuprofen [Motrin] 800 mg PO Q6HR #30 tab 05/24/20 Allergies Allergy/AdvReac Type Severity Reaction Status Date / Time bee pollen Allergy Severe Anaphylaxis Verified 05/24/20 16:57 haloperidol [From Haldol] Allergy Severe QUIT Verified 05/24/20 16:57 BREATHING haloperidol lactate Allergy Severe QUIT Verified 05/24/20 16:57 [From Haldol] BREATHING latex Allergy Severe RASH-THROAT Verified 05/24/20 16:57 CLOSES tramadol Allergy Severe Nausea & Verified 05/24/20 16:57 Vomiting murrieta Allergy Anaphylaxis Verified 05/24/20 16:57 coconut Allergy Anaphylaxis Verified 05/24/20 16:57 pineapple Allergy Anaphylaxis Verified 05/24/20 16:57 prednisone Allergy THROAT Verified 05/24/20 16:57 SWELLS spider venom Allergy Swelling Verified 05/24/20 16:57 Sulfa (Sulfonamide Allergy THROAT Verified 05/24/20 16:57 Antibiotics) SWELLS venom-wasp Allergy Swelling Verified 05/24/20 16:57 venom-wasp protein Allergy Swelling Verified 05/24/20 16:57 promethazine HCl AdvReac Severe Nausea & Verified 05/24/20 16:57 [From Phenergan] Vomiting amoxicillin AdvReac Nausea & Verified 05/24/20 16:57 Vomiting ANTS Allergy Mild Anaphylaxis Uncoded 05/24/20 16:57 Review of Systems ROS Statement: Those systems with pertinent positive or pertinent negative responses have been documented in the HPI. ROS Other: All systems not noted in ROS Statement are negative. Past Medical History Past Medical History: Asthma, Diabetes Mellitus, GERD/Reflux Additional Past Medical History / Comment(s): migraines, degenerative disk disease, endometriosis, lupus, pancreatitis History of Any Multi-Drug Resistant Organisms: None Reported Past Surgical History: Orthopedic Surgery Additional Past Surgical History / Comment(s): laparoscopc surgery for endometriosis, cyst removed from left foot, EGD Past Anesthesia/Blood Transfusion Reactions: Previous Problems w/ Anesthesia Additional Past Anesthesia/Blood Transfusion Reaction / Comment(s): hard to wake up for 48-72 hours after laparoscopic surgery-was in hosp. for 3 days Past Psychological History: Anxiety, Depression, PTSD Smoking Status: Current every day smoker Past Alcohol Use History: None Reported Past Drug Use History: None Reported - Past Family History Mother Family Medical History: No Reported History Additional Family Medical History / Comment(s): hx migraines Father Family Medical History: Coronary Artery Disease (CAD), Hypertension Additional Family Medical History / Comment(s): ddd, alcoholism & drug use General Exam Limitations: no limitations General appearance: alert, in no apparent distress, obese Head exam: Present: atraumatic, normocephalic, normal inspection Eye exam: Present: normal appearance, PERRL, EOMI. Absent: scleral icterus, conjunctival injection, periorbital swelling ENT exam: Present: normal exam, mucous membranes moist Neck exam: Present: normal inspection. Absent: tenderness, meningismus, lymphadenopathy Respiratory exam: Present: normal lung sounds bilaterally. Absent: respiratory distress, wheezes, rales, rhonchi, stridor Cardiovascular Exam: Present: regular rate, normal rhythm, normal heart sounds. Absent: systolic murmur, diastolic murmur, rubs, gallop, clicks GI/Abdominal exam: Present: soft, normal bowel sounds. Absent: distended, tenderness, guarding, rebound, rigid Extremities exam: Present: normal inspection, full ROM, normal capillary refill. Absent: tenderness, pedal edema, joint swelling, calf tenderness Back exam: Present: normal inspection Neurological exam: Present: alert, oriented X3, CN II-XII intact Psychiatric exam: Present: normal affect, normal mood Skin exam: Present: warm, dry, intact, normal color. Absent: rash Course Vital Signs 05/24/20 15:37 Temperature 98.5 F Pulse Rate 127 H Respiratory 20 Rate Blood Pressure 123/83 O2 Sat by Pulse 97 Oximetry Medical Decision Making - Medical Decision Making 21-year-old female complaining of migraine type headache. 1 L of normal saline bolus, pain medication, nausea medication, migraine abortive medication ordered Case discussed with Dr. Avalos, it was decided the patient to discharge home. Disposition Clinical Impression: Migraine Disposition: HOME SELF-CARE Condition: Stable Instructions (If sedation given, give patient instructions): Acute Headache (E D) Additional Instructions: Please return to the Emergency Department if symptoms worsen or any other concerns. Follow-up with primary care 1-2 days. Drink plenty of fluids, take Motrin as prescribed. Ask primary care for neurology referral if needed. Is patient prescribed a controlled substance at d/c from ED?: No Referrals: Isi Carolina MD [Primary Care Provider] - 1-2 days Time of Disposition: 17:09
[2020-05-24 17:27] VITALS: BP 132/97; PULSE 74; RESP 16
== END 2020-05-24 17:29 | disposition home or self-care (01) ==
LOC: EC 15:35
DX: G43.909 Migraine, unspecified, not intractable, without status migrainosus (principal); K21.9 Gastro-esophageal reflux disease without esophagitis; J45.909 Unspecified asthma, uncomplicated; F41.9 Anxiety disorder, unspecified; F32.9 Major depressive disorder, single episode, unspecified; F43.10 Post-traumatic stress disorder, unspecified; F17.200 Nicotine dependence, unspecified, uncomplicated; Z79.899 Other long term (current) drug therapy; Z91.030 Bee allergy status; Z88.5 Allergy status to narcotic agent; Z91.040 Latex allergy status; Z88.8 Allergy status to other drugs, medicaments and biological substances; Z91.018 Allergy to other foods; Z88.2 Allergy status to sulfonamides; Z91.038 Other insect allergy status; Z88.0 Allergy status to penicillin
CPT/HCPCS: 99283; 96374; 96375; 96361; J3030; J2405; J1885

== ENCOUNTER 2020-06-01 12:59 | Emergency (ER) | payer OTHER ==
[2020-06-01] MEDS ORDERED: diphenhydrAMINE 50 MG/ML 1 ML VIAL IVP STA (13:23)
[2020-06-01] MEDS ORDERED: SODIUM CHLORIDE 0.9% 1,000 ML IV STA (13:23)
[2020-06-01] MEDS ORDERED: MORPHINE SULFATE 4 MG/ML SYRINGE IVP STA ×2 (13:24→14:27)
[2020-06-01] MEDS ORDERED: KETOROLAC 15 MG/ML 1 ML VIAL IVP STA (13:24)
[2020-06-01] MEDS ORDERED: METOCLOPRAMIDE 5 MG/ML 2 ML VIAL IVP STA (13:24)
--- NOTE | 2020-06-01 13:31 | ED ---
Headache HPI - General Chief Complaint: Headache Stated Complaint: headache Time Seen by Provider: 06/01/20 13:06 Mode of arrival: ambulatory Limitations: no limitations - History of Present Illness Initial Comments: Patient is a 29-year-old female, with history of migraines, presenting to the emergency Department with complaints of a migraine started yesterday. She is well-known to this ER for her migraines. She states she is supposed to start a new medication from her neurologist, for her migraines, but cannot get it from the pharmacy until Wednesday. She states her headache started last night, she has tried her at home medications of Tylenol, Motrin, Toradol and Imitrex however none of them are helping. She states her pain is 8/10, she is nauseous, light sensitive. This feels like her normal migraines, no falls or trauma. She has no other complaints at this time. She denies any fever or chills, no chest pain or shortness of breath, no blurry vision. Upon arrival to the ER, she has tachycardia, rest of vitals are normal. - Related Data Home Medications Medication Instructions Recorded Confirmed EPINEPHrine [Epipen 2-Mike] 0.3 mg IM ONCE PRN 10/16/18 05/24/20 SUMAtriptan succinate [Imitrex] 50 mg PO DAILY PRN 05/08/19 05/24/20 Topiramate [Topamax] 100 mg PO HS 05/08/19 05/24/20 tiZANidine [Zanaflex] 4 mg PO BID PRN 05/08/19 05/24/20 Albuterol Inhaler [Ventolin Hfa 2 puff INHALATION RT-Q4H PRN 10/17/19 05/24/20 Inhaler] Omeprazole [PriLOSEC] 40 mg PO HS 03/04/20 05/24/20 Acetaminophen Tab [Tylenol] 500 mg PO Q6HR PRN 05/07/20 05/24/20 Cyclobenzaprine [Flexeril] 10 mg PO TID PRN 05/07/20 05/24/20 Nicotine 21Mg/24Hr Patch [Habitrol] 1 patch TRANSDERM DAILY PRN 05/07/20 05/24/20 Doxepin HCl 75 mg PO HS 05/24/20 05/24/20 PARoxetine [Paxil] 10 mg PO DAILY 05/24/20 05/24/20 Prazosin HCl 2 mg PO HS 05/24/20 05/24/20 hydrOXYzine pamoate [Vistaril] 50 mg PO QID PRN 05/24/20 05/24/20 Previous Rx's Medication Instructions Recorded Atorvastatin [Lipitor] 40 mg PO HS 30 Days tab 04/30/20 OLANZapine [ZyPREXA] 7.5 mg PO HS 30 Days tablet 04/30/20 Ibuprofen [Motrin] 800 mg PO TID PRN #30 tab 05/10/20 Ibuprofen [Motrin] 800 mg PO Q6HR #30 tab 05/24/20 Allergies Allergy/AdvReac Type Severity Reaction Status Date / Time bee pollen Allergy Severe Anaphylaxis Verified 06/01/20 13:06 haloperidol [From Haldol] Allergy Severe QUIT Verified 06/01/20 13:06 BREATHING haloperidol lactate Allergy Severe QUIT Verified 06/01/20 13:06 [From Haldol] BREATHING latex Allergy Severe RASH-THROAT Verified 06/01/20 13:06 CLOSES tramadol Allergy Severe Nausea & Verified 06/01/20 13:06 Vomiting murrieta Allergy Anaphylaxis Verified 06/01/20 13:06 coconut Allergy Anaphylaxis Verified 06/01/20 13:06 pineapple Allergy Anaphylaxis Verified 06/01/20 13:06 prednisone Allergy THROAT Verified 06/01/20 13:06 SWELLS spider venom Allergy Swelling Verified 06/01/20 13:06 Sulfa (Sulfonamide Allergy THROAT Verified 06/01/20 13:06 Antibiotics) SWELLS venom-wasp Allergy Swelling Verified 06/01/20 13:06 venom-wasp protein Allergy Swelling Verified 06/01/20 13:06 promethazine HCl AdvReac Severe Nausea & Verified 06/01/20 13:06 [From Phenergan] Vomiting amoxicillin AdvReac Nausea & Verified 06/01/20 13:06 Vomiting ANTS Allergy Mild Anaphylaxis Uncoded 06/01/20 13:06 Review of Systems ROS Statement: Those systems with pertinent positive or pertinent negative responses have been documented in the HPI. ROS Other: All systems not noted in ROS Statement are negative. Past Medical History Past Medical History: Asthma, Diabetes Mellitus, GERD/Reflux Additional Past Medical History / Comment(s): migraines, degenerative disk disease, endometriosis, lupus, pancreatitis History of Any Multi-Drug Resistant Organisms: None Reported Past Surgical History: Orthopedic Surgery Additional Past Surgical History / Comment(s): laparoscopc surgery for endometriosis, cyst removed from left foot, EGD Past Anesthesia/Blood Transfusion Reactions: Previous Problems w/ Anesthesia Additional Past Anesthesia/Blood Transfusion Reaction / Comment(s): hard to wake up for 48-72 hours after laparoscopic surgery-was in hosp. for 3 days Past Psychological History: Anxiety, Depression, PTSD Smoking Status: Current every day smoker Past Alcohol Use History: None Reported Past Drug Use History: None Reported - Past Family History Mother Family Medical History: No Reported History Additional Family Medical History / Comment(s): hx migraines Father Family Medical History: Coronary Artery Disease (CAD), Hypertension Additional Family Medical History / Comment(s): ddd, alcoholism & drug use General Exam - General Exam Comments Initial Comments: GENERAL: Patient is well-developed and well-nourished. Patient is nontoxic and in mild distress. HEAD: Atraumatic, normocephalic. EYES: Pupils equal round and reactive to light, extraocular movements intact, sclera anicteric, conjunctiva are normal. Eyelids were unremarkable. ENT: TMs normal, nares patent, oropharynx clear without exudates. Moist mucous membranes. NECK: Normal range of motion, supple without lymphadenopathy or JVD. LUNGS: Unlabored respirations. Breath sounds clear to auscultation bilaterally and equal. No wheezes rales or rhonchi. HEART: slighty tachy rate and rhythm without murmurs, rubs or gallops. ABDOMEN: Soft, nontender, normoactive bowel sounds. No guarding, no rebound. No masses appreciated. : Deferred MUSCULOSKELETAL: Normal extremities with adequate strength and normal range of motion, no pitting or edema. No clubbing or cyanosis. NEUROLOGICAL: Patient is alert and oriented x 3. Motor and sensory are also intact. Cranial nerves II through XII grossly intact. Symmetrical smile. Normal speech, normal gait. PSYCH: Normal mood, normal affect. SKIN: Warm, Dry, normal turgor, no rashes or lesions noted. Limitations: no limitations Course Vital Signs 06/01/20 06/01/20 06/01/20 13:06 13:10 13:41 Temperature 97.8 F Pulse Rate 127 H 124 H 110 H Respiratory 18 18 Rate Blood Pressure 132/92 131/83 O2 Sat by Pulse 99 99 Oximetry 06/01/20 06/01/20 06/01/20 14:00 14:38 15:49 Temperature 98.1 F Pulse Rate 124 H 114 H 115 H Respiratory 18 18 20 Rate Blood Pressure 107/71 111/68 125/57 O2 Sat by Pulse 97 97 97 Oximetry - Reevaluation(s) Reevaluation #1: 06/01/20 15:01 Upon reevaluation of patient, patient states she excellently rolled out of her bed. Patient states she does this a lot at home when she has to close that she'll rollover in for rule out. Patient states she did not hit her head. She is complaining of some mild mid back pain where she landed and also some mild right wrist pain. She states it hurts mostly where the IV is since been that way. She has no swelling nor deformity seen of the right wrist. No bruising or redness on her back. She was able to get up with minimal assistance. States her headache is improving. Medical Decision Making - Medical Decision Making Patient is a 29-year-old female history of migraines, presenting with a migraine since yesterday. She is well-known to this ER for her migraines. She had tried at home medications without relief of symptoms. Her exam is unremarkable, no acute neuro deficits. Patient was given IV medications, reports improvement in her symptoms. Patient states her headache is still not completely gone and she is very concerned about going home. She is requesting an Ativan to go home with. I will give her 1 mg by mouth Ativan to take when she gets home. She is in agreement with this plan of care. She stable for discharge. I stressed the importance of following up with her neurologist for her chronic headaches. Return parameters were discussed with the patient she verbalized understanding. Case discussed Dr. Avalos. Disposition Clinical Impression: Migraine headache Disposition: HOME SELF-CARE Condition: Stable Instructions (If sedation given, give patient instructions): Acute Headache (ED) Additional Instructions: Please return to the Emergency Department if symptoms worsen or any other concerns. Please follow-up with your neurologist concerning your chronic headaches. Is patient prescribed a controlled substance at d/c from ED?: No Referrals: Isi Carolina MD [Primary Care Provider] - 1-2 days
[2020-06-01] MEDS ORDERED: SUMAtriptan succinate 6 MG/0.5 ML VIAL SQ STA (15:29)
[2020-06-01] MEDS ORDERED: LORazepam 1 MG TAB PO STA (15:46)
[2020-06-01 15:52] VITALS: BP 125/57; PULSE 115; RESP 20; TEMP 98.1
== END 2020-06-01 15:53 | disposition home or self-care (01) ==
LOC: EC 12:59
DX: G43.909 Migraine, unspecified, not intractable, without status migrainosus (principal); J45.909 Unspecified asthma, uncomplicated; K21.9 Gastro-esophageal reflux disease without esophagitis; F41.9 Anxiety disorder, unspecified; F32.9 Major depressive disorder, single episode, unspecified; F43.10 Post-traumatic stress disorder, unspecified; F17.200 Nicotine dependence, unspecified, uncomplicated; Z79.899 Other long term (current) drug therapy; Z91.030 Bee allergy status; Z91.018 Allergy to other foods; Z88.5 Allergy status to narcotic agent; Z91.040 Latex allergy status; Z88.8 Allergy status to other drugs, medicaments and biological substances; Z91.038 Other insect allergy status; Z88.2 Allergy status to sulfonamides; Z88.0 Allergy status to penicillin
CPT/HCPCS: 96361; 96374; 96375; 96376; 99283

== ENCOUNTER 2020-06-09 16:08 | Emergency (ER) | payer OTHER ==
[2020-06-09] MEDS ORDERED: METOCLOPRAMIDE 5 MG/ML 2 ML VIAL IVP STA (16:42)
[2020-06-09] MEDS ORDERED: KETOROLAC 15 MG/ML 1 ML VIAL IVP STA (16:42)
[2020-06-09] MEDS ORDERED: diphenhydrAMINE 50 MG/ML 1 ML VIAL IVP STA (16:43)
--- NOTE | 2020-06-09 16:58 | ED ---
General Adult HPI - General Chief complaint: Headache Stated complaint: head ache/nausea/dizzy Time Seen by Provider: 06/09/20 16:13 Source: patient Mode of arrival: ambulatory Limitations: no limitations - History of Present Illness Initial comments: 29-year-old female with a past medical history of asthma, migraines, degenerative disc disease, lupus presents to the emergency room for a chief, and of headache. Patient reports she has had a migraine headache for 2 days. Patient states this is causing some nausea. Patient reports his pain is exactly consistent to previous migraine headaches. Patient states that she took her migraine medication today as well as Motrin and Tylenol but did not seem to help.Patient has no other complaints at this time including shortness of breath, chest pain, abdominal pain, or visual changes. - Related Data Home Medications Medication Instructions Recorded Confirmed EPINEPHrine [Epipen 2-Mike] 0.3 mg IM ONCE PRN 10/16/18 05/24/20 SUMAtriptan succinate [Imitrex] 50 mg PO DAILY PRN 05/08/19 05/24/20 Topiramate [Topamax] 100 mg PO HS 05/08/19 05/24/20 tiZANidine [Zanaflex] 4 mg PO BID PRN 05/08/19 05/24/20 Albuterol Inhaler [Ventolin Hfa 2 puff INHALATION RT-Q4H PRN 10/17/19 05/24/20 Inhaler] Omeprazole [PriLOSEC] 40 mg PO HS 03/04/20 05/24/20 Acetaminophen Tab [Tylenol] 500 mg PO Q6HR PRN 05/07/20 05/24/20 Cyclobenzaprine [Flexeril] 10 mg PO TID PRN 05/07/20 05/24/20 Nicotine 21Mg/24Hr Patch [Habitrol] 1 patch TRANSDERM DAILY PRN 05/07/2005/13 Doxepin HCl 75 mg PO HS 05/24/20 05/24/20 PARoxetine [Paxil] 10 mg PO DAILY 05/24/20 05/24/20 Prazosin HCl 2 mg PO HS 05/24/20 05/24/20 hydrOXYzine pamoate [Vistaril] 50 mg PO QID PRN 05/24/20 05/24/20 Previous Rx's Medication Instructions Recorded Atorvastatin [Lipitor] 40 mg PO HS 30 Days tab 04/30/20 OLANZapine [ZyPREXA] 7.5 mg PO HS 30 Days tablet 04/30/20 Ibuprofen [Motrin] 800 mg PO TID PRN #30 tab 05/10/20 Ibuprofen [Motrin] 800 mg PO Q6HR #30 tab 05/24/20 Allergies Allergy/AdvReac Type Severity Reaction Status Date / Time bee pollen Allergy Severe Anaphylaxis Verified 06/09/20 16:12 haloperidol [From Haldol] Allergy Severe QUIT Verified 06/09/20 16:12 BREATHING haloperidol lactate Allergy Severe QUIT Verified 06/09/20 16:12 [From Haldol] BREATHING latex Allergy Severe RASH-THROAT Verified 06/09/20 16:12 CLOSES tramadol Allergy Severe Nausea & Verified 06/09/20 16:12 Vomiting murrieta Allergy Anaphylaxis Verified 06/09/20 16:12 coconut Allergy Anaphylaxis Verified 06/09/20 16:12 pineapple Allergy Anaphylaxis Verified 06/09/20 16:12 prednisone Allergy THROAT Verified 06/09/20 16:12 SWELLS spider venom Allergy Swelling Verified 06/09/20 16:12 Sulfa (Sulfonamide Allergy THROAT Verified 06/09/20 16:12 Antibiotics) SWELLS venom-wasp Allergy Swelling Verified 06/09/20 16:12 venom-wasp protein Allergy Swelling Verified 06/09/20 16:12 promethazine HCl AdvReac Severe Nausea & Verified 06/09/20 16:12 [From Phenergan] Vomiting amoxicillin AdvReac Nausea & Verified 06/09/20 16:12 Vomiting ANTS Allergy Mild Anaphylaxis Uncoded 06/09/20 16:12 Review of Systems ROS Statement: Those systems with pertinent positive or pertinent negative responses have been documented in the HPI. ROS Other: All systems not noted in ROS Statement are negative. Past Medical History Past Medical History: Asthma, Diabetes Mellitus, GERD/Reflux Additional Past Medical History / Comment(s): migraines, degenerative disk disease, endometriosis, lupus, pancreatitis History of Any Multi-Drug Resistant Organisms: None Reported Past Surgical History: Orthopedic Surgery Additional Past Surgical History / Comment(s): laparoscopc surgery for endometriosis, cyst removed from left foot, EGD Past Anesthesia/Blood Transfusion Reactions: Previous Problems w/ Anesthesia Additional Past Anesthesia/Blood Transfusion Reaction / Comment(s): hard to wake up for 48-72 hours after laparoscopic surgery-was in hosp. for 3 days Past Psychological History: Anxiety, Depression, PTSD Smoking Status: Current every day smoker Past Alcohol Use History: None Reported Past Drug Use History: None Reported - Past Family History Mother Family Medical History: No Reported History Additional Family Medical History / Comment(s): hx migraines Father Family Medical History: Coronary Artery Disease (CAD), Hypertension Additional Family Medical History / Comment(s): ddd, alcoholism & drug use General Exam Limitations: no limitations General appearance: alert, in no apparent distress Head exam: Present: atraumatic, normocephalic, normal inspection Eye exam: Present: normal appearance, PERRL, EOMI. Absent: scleral icterus, conjunctival injection, periorbital swelling ENT exam: Present: normal exam, mucous membranes moist Neck exam: Present: normal inspection, full ROM. Absent: tenderness, meningismus, lymphadenopathy Respiratory exam: Present: normal lung sounds bilaterally. Absent: respiratory distress, wheezes, rales, rhonchi, stridor Cardiovascular Exam: Present: regular rate, normal rhythm, normal heart sounds. Absent: systolic murmur, diastolic murmur, rubs, gallop, clicks GI/Abdominal exam: Present: soft, normal bowel sounds. Absent: distended, tenderness, guarding, rebound, rigid Neurological exam: Present: alert, oriented X3 Course Vital Signs 06/09/20 06/09/20 16:10 17:47 Temperature 97.5 F L Pulse Rate 123 H 111 H Respiratory 22 20 Rate Blood Pressure 124/85 122/78 O2 Sat by Pulse 99 96 Oximetry Medical Decision Making - Medical Decision Making Patient presents for chronic migraines. Pain is exactly consistent with previous migraines. Patient did take her migraine medication however it did not seem to help. Patient is tachycardic here in the emergency room which does appear chronic for patient. This did improve with pain management. Patient was given migraine cocktail and pain medication. Did have improvement in symptoms. She will follow-up with her doctor. She will return for any worsening symptoms. Disposition Clinical Impression: Headache Disposition: HOME SELF-CARE Condition: Good Instructions (If sedation given, give patient instructions): Acute Headache (ED) Additional Instructions: Please follow-up with your doctor for migraines. Please return for any worsening symptoms. Is patient prescribed a controlled substance at d/c from ED?: No Referrals: Isi Carolina MD [Primary Care Provider] - 1-2 days Time of Disposition: 18:07
[2020-06-09] MEDS ORDERED: SODIUM CHLORIDE 0.9% 1,000 ML IV STA (17:56)
[2020-06-09] MEDS ORDERED: HYDROmorphone 0.5 MG/0.5 ML SYRINGE IVP STA ×2 (17:58→18:33)
[2020-06-09 19:12] VITALS: BP 128/78; PULSE 78; RESP 16; TEMP 98
== END 2020-06-09 18:54 | disposition home or self-care (01) ==
LOC: EC 16:08
DX: G40.909 Epilepsy, unspecified, not intractable, without status epilepticus (principal); J45.909 Unspecified asthma, uncomplicated; E11.9 Type 2 diabetes mellitus without complications; F32.9 Major depressive disorder, single episode, unspecified; F41.0 Panic disorder [episodic paroxysmal anxiety]; K21.9 Gastro-esophageal reflux disease without esophagitis; F17.200 Nicotine dependence, unspecified, uncomplicated; Z79.1 Long term (current) use of non-steroidal anti-inflammatories (NSAID); Z79.899 Other long term (current) drug therapy
CPT/HCPCS: 96374; 96375; 96376; 96361; 99283; J1200; J2765; J1885; J1170

== ENCOUNTER 2020-06-23 23:47 | Emergency (ER) | payer OTHER ==
[2020-06-24 00:01] VITALS: RESP 18; TEMP 99.2
[2020-06-24] MEDS ORDERED: ONDANSETRON 4 MG/2 ML VIAL IVP STA (00:31)
[2020-06-24] MEDS ORDERED: KETOROLAC 15 MG/ML 1 ML VIAL IVP STA (00:31)
[2020-06-24] MEDS ORDERED: diphenhydrAMINE 50 MG/ML 1 ML VIAL IVP STA (00:31)
[2020-06-24] MEDS ORDERED: SODIUM CHLORIDE 0.9% 1,000 ML IV STA (00:31)
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
--- NOTE | 2020-06-24 01:06 | CT ---
EXAM: CT Head Without Intravenous Contrast CLINICAL HISTORY: ITS.REASON CT Reason: fall x 4 days ago, FABIAN, vomiting TECHNIQUE: Axial computed tomography images of the head/brain without intravenous contrast. CTDI is 45.2 mGy and DLP is 961.3 mGy-cm. This CT exam was performed using one or more of the following dose reduction techniques: automated exposure control, adjustment of the mA and/or kV according to patient size, and/or use of iterative reconstruction technique. COMPARISON: 04/28/2020. FINDINGS: Brain: No abnormal extra-axial collection. No hemorrhage. No significant white matter disease. Midline shift: Midline anatomy is unremarkable. Ventricles: The ventricular system is age appropriate. Bones/joints: Calvarium is within normal limits. No acute fracture. Soft tissues: Unremarkable. Sinuses: Visualized sinuses are unremarkable. Mastoid air cells: Mastoid air cells are well pneumatized. IMPRESSION: 1. No acute intracranial pathology. 2. If there is concern for etiology such as early acute lacunar infarcts, magnetic resonance imaging of the brain with diffusion-weighted sequences should be performed. EXAM: CT Cervical Spine Without Intravenous Contrast CLINICAL HISTORY: ITS.REASON CT Reason: fall x 4 days ago, FABIAN, vomiting TECHNIQUE: Axial computed tomography images of the cervical spine without intravenous contrast. CTDI is 25.27 mGy and DLP is 656.8 mGy-cm. This CT exam was performed using one or more of the following dose reduction techniques: automated exposure control, adjustment of the mA and/or kV according to patient size, and/or use of iterative reconstruction technique. COMPARISON: 04/28/2020 FINDINGS: Vertebrae: Alignment of the cervical spine is within normal limits. Cervical and visualized thoracic vertebral bodies are maintained in height. There is a normal relationship of C1 and C2. Transaxial images of the cervical spine reveals no acute injury to the cervical spine. Discs/spinal canal/neural foramina: No acute findings. No spinal canal stenosis. Soft tissues: Unremarkable. Lung apices: Lung apices are unremarkable. Other findings: Spinous processes are unremarkable. IMPRESSION: No acute injury to the cervical spine.
[2020-06-24] MEDS ORDERED: MORPHINE SULFATE 4 MG/ML SYRINGE IVP STA (01:45)
[2020-06-24 02:14] VITALS: BP 127/84; PULSE 120
[2020-06-24] MEDS ORDERED: LORazepam 1 MG TAB PO STA (02:33)
== END 2020-06-24 02:42 | disposition home or self-care (01) ==
LOC: EC 23:47
DX: S06.0X0A Concussion without loss of consciousness, initial encounter (principal); G43.909 Migraine, unspecified, not intractable, without status migrainosus; W03.XXXA Other fall on same level due to collision with another person, initial encounter; Y93.16 Activity, rowing, canoeing, kayaking, rafting and tubing; Y92.838 Other recreation area as the place of occurrence of the external cause; Z79.899 Other long term (current) drug therapy; F32.9 Major depressive disorder, single episode, unspecified; F41.9 Anxiety disorder, unspecified; J45.909 Unspecified asthma, uncomplicated; K21.9 Gastro-esophageal reflux disease without esophagitis; E11.9 Type 2 diabetes mellitus without complications; M32.9 Systemic lupus erythematosus, unspecified; F43.10 Post-traumatic stress disorder, unspecified; F17.200 Nicotine dependence, unspecified, uncomplicated; Z79.1 Long term (current) use of non-steroidal anti-inflammatories (NSAID); Z91.030 Bee allergy status; Z91.038 Other insect allergy status; Z91.040 Latex allergy status; Z88.5 Allergy status to narcotic agent; Z88.0 Allergy status to penicillin; Z88.2 Allergy status to sulfonamides; Z88.8 Allergy status to other drugs, medicaments and biological substances; Z91.018 Allergy to other foods; Z87.19 Personal history of other diseases of the digestive system; Z82.49 Family history of ischemic heart disease and other diseases of the circulatory system; Z81.1 Family history of alcohol abuse and dependence; Z81.3 Family history of other psychoactive substance abuse and dependence
CPT/HCPCS: 72125; 70450; J2270; J1200; J2405; J1885; 96361; 96374; 96375; 99283

== ENCOUNTER 2020-06-24 17:26 | Emergency (ER) | payer OTHER ==
[2020-06-24 17:45] VITALS: TEMP 98.4
[2020-06-24] MEDS ORDERED: SODIUM CHLORIDE 0.9% 1,000 ML IV ONE (18:29)
--- NOTE | 2020-06-24 18:29 | ED ---
Headache HPI - General Chief Complaint: Headache Stated Complaint: headache/dizziness Time Seen by Provider: 06/24/20 18:15 Source: patient, RN notes reviewed Mode of arrival: ambulatory Limitations: no limitations - History of Present Illness Initial Comments: 29-year-old white female patient presents to the emergency room with complaints of headache since Wednesday after falling off of a tube at [facility] and hitting head in the pool. Patient was seen by the facility's nurse for dizziness and told to follow up with her primary care doctor. Denies LOC, states ambulated here from home patient states she has had headache since Wednesday no relief from own meds including neurotec taken last night at midnight, Excedrin last night at 2200, Motrin, or Tylenol both taken at 1030 today. Patient states pain is shooting and pounding and causes her to fall to the ground patient states fell hitting knee today on the way to the emergency room. Patient states was seen yesterday in the emergency room and had a CT an IV at that time. Was sent home. Patient states did not have the shooting pain that she has today. Patient endorses nausea today vomiting 6 yesterday no fever no diarrhea. MD Complaint: headache -: days(s) (5) Location: diffuse Severity scale (1-10): 10 Quality: other (shooting and pounding) Consistency: constant Improves With: nothing Worsens With: exertion/activity, sitting/standing Context: recent head injury (Was at [facility] in [place] on a tube in the [facility] was kicked and fell off the tube and fell out hitting head on pool bottom, no loc) Associated Symptoms: nausea, weakness (Occasional blurred vision) Other Symptoms: other (Shooting pain causes her to fall) Treatments Prior to Arrival: Acetaminophen, Ibuprofen, prescription analgesic (neurotec, excedrin, motrin and tylenol with no relief), migraine medication - Related Data Home Medications Medication Instructions Recorded Confirmed EPINEPHrine [Epipen 2-Mike] 0.3 mg IM ONCE PRN 10/16/18 05/24/20 SUMAtriptan succinate [Imitrex] 50 mg PO DAILY PRN 05/08/19 05/24/20 Topiramate [Topamax] 100 mg PO HS 05/08/19 05/24/20 tiZANidine [Zanaflex] 4 mg PO BID PRN 05/08/19 05/24/20 Albuterol Inhaler [Ventolin Hfa 2 puff INHALATION RT-Q4H PRN 10/17/19 05/24/20 Inhaler] Omeprazole [PriLOSEC] 40 mg PO HS 03/04/20 05/24/20 Acetaminophen Tab [Tylenol] 500 mg PO Q6HR PRN 05/07/20 05/24/20 Cyclobenzaprine [Flexeril] 10 mg PO TID PRN 05/07/20 05/24/20 Nicotine 21Mg/24Hr Patch [Habitrol] 1 patch TRANSDERM DAILY PRN 05/07/20 05/24/20 Doxepin HCl 75 mg PO HS 05/24/20 05/24/20 PARoxetine [Paxil] 10 mg PO DAILY 05/24/20 05/24/20 Prazosin HCl 2 mg PO HS 05/24/20 05/24/20 hydrOXYzine pamoate [Vistaril] 50 mg PO QID PRN 05/24/20 05/24/20 Previous Rx's Medication Instructions Recorded Atorvastatin [Lipitor] 40 mg PO HS 30 Days tab 04/30/20 OLANZapine [ZyPREXA] 7.5 mg PO HS 30 Days tablet 04/30/20 Ibuprofen [Motrin] 800 mg PO TID PRN #30 tab 05/10/20 Ibuprofen [Motrin] 800 mg PO Q6HR #30 tab 05/24/20 Ondansetron Odt [Zofran Odt] 4 mg PO Q8HR PRN #10 tab 06/24/20 Allergies Allergy/AdvReac Type Severity Reaction Status Date / Time bee pollen Allergy Severe Anaphylaxis Verified 06/24/20 17:45 haloperidol [From Haldol] Allergy Severe QUIT Verified 06/24/20 17:45 BREATHING haloperidol lactate Allergy Severe QUIT Verified 06/24/20 17:45 [From Haldol] BREATHING latex Allergy Severe RASH-THROAT Verified 06/24/20 17:45 CLOSES tramadol Allergy Severe Nausea & Verified 06/24/20 17:45 Vomiting murrieta Allergy Anaphylaxis Verified 06/24/20 17:45 coconut Allergy Anaphylaxis Verified 06/24/20 17:45 pineapple Allergy Anaphylaxis Verified 06/24/20 17:45 prednisone Allergy THROAT Verified 06/24/20 17:45 SWELLS spider venom Allergy Swelling Verified 06/24/20 17:45 Sulfa (Sulfonamide Allergy THROAT Verified 06/24/20 17:45 Antibiotics) SWELLS venom-wasp Allergy Swelling Verified 06/24/20 17:45 venom-wasp protein Allergy Swelling Verified 06/24/20 17:45 promethazine HCl AdvReac Severe Nausea & Verified 06/24/20 17:45 [From Phenergan] Vomiting amoxicillin AdvReac Nausea & Verified 06/24/20 17:45 Vomiting ANTS Allergy Mild Anaphylaxis Uncoded 06/24/20 17:45 Review of Systems ROS Statement: Those systems with pertinent positive or pertinent negative responses have been documented in the HPI. ROS Other: All systems not noted in ROS Statement are negative. Past Medical History Past Medical History: Asthma, Diabetes Mellitus, GERD/Reflux Additional Past Medical History / Comment(s): migraines, degenerative disk disease, endometriosis, lupus, pancreatitis History of Any Multi-Drug Resistant Organisms: None Reported Past Surgical History: Orthopedic Surgery Additional Past Surgical History / Comment(s): laparoscopc surgery for endometriosis, cyst removed from left foot, EGD Past Anesthesia/Blood Transfusion Reactions: Previous Problems w/ Anesthesia Additional Past Anesthesia/Blood Transfusion Reaction / Comment(s): hard to wake up for 48-72 hours after laparoscopic surgery-was in hosp. for 3 days Past Psychological History: Anxiety, Depression, PTSD Smoking Status: Current every day smoker Past Alcohol Use History: None Reported Past Drug Use History: None Reported - Past Family History Mother Family Medical History: No Reported History Additional Family Medical History / Comment(s): hx migraines Father Family Medical History: Coronary Artery Disease (CAD), Hypertension Additional Family Medical History / Comment(s): ddd, alcoholism & drug use General Exam Limitations: no limitations General appearance: alert Head exam: Present: atraumatic, normocephalic, normal inspection Eye exam: Present: normal appearance, PERRL, EOMI. Absent: scleral icterus, conjunctival injection, periorbital swelling ENT exam: Present: normal exam, other (sticky mucous membranes) Neck exam: Present: normal inspection. Absent: tenderness, meningismus, lymphadenopathy Respiratory exam: Present: normal lung sounds bilaterally. Absent: respiratory distress, wheezes, rales, rhonchi, stridor Cardiovascular Exam: Present: regular rate, normal rhythm, normal heart sounds. Absent: systolic murmur, diastolic murmur, rubs, gallop, clicks GI/Abdominal exam: Present: soft, normal bowel sounds. Absent: distended, tenderness, guarding, rebound, rigid Neurological exam: Present: alert, oriented X3, CN II-XII intact Psychiatric exam: Present: normal affect, normal mood Skin exam: Present: warm, dry, intact, normal color. Absent: rash Course Vital Signs 06/24/20 17:42 Temperature 98.4 F Pulse Rate 86 Respiratory 18 Rate Blood Pressure 122/76 O2 Sat by Pulse 98 Oximetry Medical Decision Making - Medical Decision Making Patient seen yesterday and had a CAT scan done, negative for intracranial bleed or fracture. Case discussed with Dr. Avalos. Will provide IV fluids, Benadryl and Zofran for headache and nausea and have patient follow up with neurology. Disposition Clinical Impression: Migraine headache, Mild concussion Disposition: HOME SELF-CARE Condition: Good Instructions (If sedation given, give patient instructions): Acute Headache (ED) Additional Instructions: Please follow up with Dr Casanova, neurology for continuation of care of dizziness and headache after head injury. Is patient prescribed a controlled substance at d/c from ED?: No Referrals: Isi Carolina MD [Primary Care Provider] - 1-2 days Demario Casanova MD [STAFF PHYSICIAN] - 1-2 days Time of Disposition: 18:54
[2020-06-24] MEDS ORDERED: ONDANSETRON 4 MG/2 ML VIAL IVP STA (18:30)
[2020-06-24] MEDS ORDERED: diphenhydrAMINE 50 MG/ML 1 ML VIAL IVP STA (18:30)
[2020-06-24] MEDS ORDERED: KETOROLAC 15 MG/ML 1 ML VIAL IVP STA (20:30)
[2020-06-24] MEDS ORDERED: KETOROLAC 15 MG/ML 1 ML VIAL ONE (20:31)
[2020-06-24 20:55] VITALS: BP 124/85; PULSE 85; RESP 18
== END 2020-06-24 20:40 | disposition home or self-care (01) ==
LOC: EC 17:26
DX: S06.0X9A Concussion with loss of consciousness of unspecified duration, initial encounter (principal); G43.909 Migraine, unspecified, not intractable, without status migrainosus; F41.9 Anxiety disorder, unspecified; F32.9 Major depressive disorder, single episode, unspecified; F17.200 Nicotine dependence, unspecified, uncomplicated; J45.909 Unspecified asthma, uncomplicated; E11.9 Type 2 diabetes mellitus without complications; K21.9 Gastro-esophageal reflux disease without esophagitis
CPT/HCPCS: 99283; 96374; 96375; 96361; J1200; J2405; J1885

== ENCOUNTER 2020-06-25 16:13 | Inpatient (IN) | payer MEDICAID, OTHER ==
[2020-06-25] MEDS ORDERED: ACETAMINOPHEN TAB 500 MG TAB PO STA (16:38)
[2020-06-25 16:56] LABS: Appearance,Urine Clear (Clear); Bilirubin,Urine Negative (Negative); Blood,Urine Negative (Negative); Color,Urine Colorless; Glucose,Urine (UA) 3+ (Negative); Ketones,Urine Negative (Negative); Leukocyte Esterase,Urine Negative (Negative); Nitrite,Urine Negative (Negative); Protein,Urine Negative (Negative); Specific Gravity,Urine 1.003 (1.001-1.035); Urobilinogen,Urine <2.0 mg/dL (<2.0)
--- NOTE | 2020-06-25 17:03 | ED ---
General Adult HPI - General Chief complaint: Syncope Stated complaint: revisit - back pain Time Seen by Provider: 06/25/20 16:31 Source: patient, EMS, RN notes reviewed, old records reviewed Mode of arrival: EMS Limitations: no limitations - History of Present Illness Initial comments: 29-year-old female presents for evaluation of head injury status post fall. Patient states she was in the bathroom, and fell striking the back of her head. She also injured her low back. Patient denies preceding chest pain or palpitations. She is uncertain exactly why she fell. No abdominal pain. No fever no chills. No chest pain. She is complaining of some low back pain as well as occipital headache which is where she struck her head. She is not on anticoagulation. - Related Data Home Medications Medication Instructions Recorded Confirmed EPINEPHrine [Epipen 2-Mike] 0.3 mg IM ONCE PRN 10/16/18 05/24/20 SUMAtriptan succinate [Imitrex] 50 mg PO DAILY PRN 05/08/19 05/24/20 Topiramate [Topamax] 100 mg PO HS 05/08/19 05/24/20 tiZANidine [Zanaflex] 4 mg PO BID PRN 05/08/19 05/24/20 Albuterol Inhaler [Ventolin Hfa 2 puff INHALATION RT-Q4H PRN 10/17/19 05/24/20 Inhaler] Omeprazole [PriLOSEC] 40 mg PO HS 03/04/20 05/24/20 Acetaminophen Tab [Tylenol] 500 mg PO Q6HR PRN 05/07/20 05/24/20 Cyclobenzaprine [Flexeril] 10 mg PO TID PRN 05/07/20 05/24/20 Nicotine 21Mg/24Hr Patch [Habitrol] 1 patch TRANSDERM DAILY PRN 05/07/20 05/24/20 Doxepin HCl 75 mg PO HS 05/24/20 05/24/20 PARoxetine [Paxil] 10 mg PO DAILY 05/24/20 05/24/20 Prazosin HCl 2 mg PO HS 05/24/20 05/24/20 hydrOXYzine pamoate [Vistaril] 50 mg PO QID PRN 05/24/20 05/24/20 Previous Rx's Medication Instructions Recorded Atorvastatin [Lipitor] 40 mg PO HS 30 Days tab 04/30/20 OLANZapine [ZyPREXA] 7.5 mg PO HS 30 Days tablet 04/30/20 Ibuprofen [Motrin] 800 mg PO TID PRN #30 tab 05/10/20 Ibuprofen [Motrin] 800 mg PO Q6HR #30 tab 05/24/20 Ondansetron Odt [Zofran Odt] 4 mg PO Q8HR PRN #10 tab 06/24/20 Allergies Allergy/AdvReac Type Severity Reaction Status Date / Time bee pollen Allergy Severe Anaphylaxis Verified 06/24/20 17:45 haloperidol [From Haldol] Allergy Severe QUIT Verified 06/24/20 17:45 BREATHING haloperidol lactate Allergy Severe QUIT Verified 06/24/20 17:45 [From Haldol] BREATHING latex Allergy Severe RASH-THROAT Verified 06/24/20 17:45 CLOSES tramadol Allergy Severe Nausea & Verified 06/25/20 16:17 Vomiting murrieta Allergy Anaphylaxis Verified 06/25/20 16:17 coconut Allergy Anaphylaxis Verified 06/25/20 16:17 pineapple Allergy Anaphylaxis Verified 06/25/20 16:17 prednisone Allergy THROAT Verified 06/25/20 16:17 SWELLS spider venom Allergy Swelling Verified 06/25/20 16:17 Sulfa (Sulfonamide Allergy THROAT Verified 06/25/20 16:17 Antibiotics) SWELLS venom-wasp Allergy Swelling Verified 06/25/20 16:17 venom-wasp protein Allergy Swelling Verified 06/25/20 16:17 promethazine HCl AdvReac Severe Nausea & Verified 06/25/20 16:17 [From Phenergan] Vomiting amoxicillin AdvReac Nausea & Verified 06/25/20 16:17 Vomiting ANTS Allergy Mild Anaphylaxis Uncoded 06/25/20 16:17 Review of Systems ROS Statement: Those systems with pertinent positive or pertinent negative responses have been documented in the HPI. ROS Other: All systems not noted in ROS Statement are negative. Past Medical History Past Medical History: Asthma, Diabetes Mellitus, GERD/Reflux Additional Past Medical History / Comment(s): migraines, degenerative disk disease, endometriosis, lupus, pancreatitis History of Any Multi-Drug Resistant Organisms: None Reported Past Surgical History: Orthopedic Surgery Additional Past Surgical History / Comment(s): laparoscopc surgery for endometriosis, cyst removed from left foot, EGD Past Anesthesia/Blood Transfusion Reactions: Previous Problems w/ Anesthesia Additional Past Anesthesia/Blood Transfusion Reaction / Comment(s): hard to wake up for 48-72 hours after laparoscopic surgery-was in hosp. for 3 days Past Psychological History: Anxiety, Depression, PTSD Smoking Status: Current every day smoker Past Alcohol Use History: None Reported Past Drug Use History: None Reported - Past Family History Mother Family Medical History: No Reported History Additional Family Medical History / Comment(s): hx migraines Father Family Medical History: Coronary Artery Disease (CAD), Hypertension Additional Family Medical History / Comment(s): ddd, alcoholism & drug use General Exam Limitations: no limitations General appearance: alert, in no apparent distress Head exam: Present: normocephalic, other (Occipital tenderness palpation, no large hematoma) Eye exam: Present: normal appearance, PERRL ENT exam: Present: normal exam Neck exam: Present: normal inspection, full ROM. Absent: tenderness, meningismus Respiratory exam: Present: normal lung sounds bilaterally. Absent: respiratory distress, wheezes Cardiovascular Exam: Present: regular rate, normal rhythm GI/Abdominal exam: Present: soft. Absent: distended, tenderness, guarding, rebound Extremities exam: Present: normal inspection, normal capillary refill. Absent: pedal edema, joint swelling, calf tenderness Neurological exam: Present: alert, oriented X3, CN II-XII intact. Absent: motor sensory deficit Psychiatric exam: Present: normal affect, normal mood Skin exam: Present: warm, dry, intact. Absent: cyanosis, diaphoretic Course Vital Signs 06/25/20 16:14 Temperature 98.5 F Pulse Rate 112 H Respiratory 20 Rate Blood Pressure 132/97 O2 Sat by Pulse 99 Oximetry EKG Findings - EKG Comments: EKG Findings:: EKG: Normal sinus rhythm with sinus arrhythmia, rightward axis, rate is 66, SD interval 126, QRS duration 70, QTC 450, no ST segment elevation. Medical Decision Making - Medical Decision Making 29-year-old female with fall, low back pain, headache injury. Head CT is repeated, this is negative for intracranial hemorrhage mass effect, cervical spine negative for fracture subluxation, lumbar x-rays negative for acute bony abnormality. Patient has urinalysis showing 3+ glucose, no other acute findings. Patient will monitor glucose closely at home. She will return with worsening or changing symptoms. - Lab Data Lab Results 03/16/21 03/16/21 Range/Units 16:42 16:42 Urine Color Colorless Urine Appearance Clear (Clear) Urine pH 6.0 (5.0-8.0) Ur Specific [place] 1.003 (1.001-1.035) Urine Protein Negative (Negative) Urine Glucose (UA) 3+ H (Negative) Urine Ketones Negative (Negative) Urine Blood Negative (Negative) Urine Nitrite Negative (Negative) Urine Bilirubin Negative (Negative) Urine Urobilinogen <2.0 (<2.0) mg/dL Ur Leukocyte Esterase Negative (Negative) Urine HCG, Qual Not Detected (Not Detectd) Disposition Clinical Impression: Migraine headache, Back pain, Concussion Disposition: HOME SELF-CARE Condition: Fair Instructions (If sedation given, give patient instructions): Concussion (ED) Is patient prescribed a controlled substance at d/c from ED?: No Referrals: Isi Carolina MD [Primary Care Provider] - 1-2 days Time of Disposition: 17:54
--- NOTE | 2020-06-25 17:36 | CT ---
EXAMINATION TYPE: CT brain cspine wo con DATE OF EXAM: 06/25/2020 COMPARISON: Yesterday HISTORY: Fall. CT DLP: 1657 mGycm Automated exposure control for dose reduction was used. Exam performed without contrast. Ventricles and sulci appear normal. There is no mass effect nor midline shift. There is no sign of in tracranial hemorrhage. The calvarium is intact. There is no evidence of cerebral edema. Cervical vertebra have normal spacing and alignment. Posterior elements are intact. There is no compr ession fracture. Facet joints appear normal. Prevertebral soft tissues appear normal. IMPRESSION: Normal CT scan of the brain. Normal CT scan of the cervical spine. No change.
--- NOTE | 2020-06-25 17:38 | XR ---
EXAMINATION TYPE: XR lumbar spine 2 or 3V DATE OF EXAM: 06/25/2020 COMPARISON: 02/17/2020 HISTORY: Back pain TECHNIQUE: 3 views FINDINGS: Lumbar vertebra have normal spacing and alignment. Posterior elements are intact. There is no compression fracture. Sacroiliac joints appear intact. IMPRESSION: Normal lumbar spine exam. No change.
[2020-06-25] MEDS ORDERED: KETOROLAC 15 MG/ML 1 ML VIAL IM STA (17:47)
[2020-06-25 21:01] LABS: Amphetamine Screen,Urine Not Detected (NotDetected); Barbiturate Screen,Urine Not Detected (NotDetected); Benzodiazepines Screen,Urine Not Detected (NotDetected); Cocaine Screen,Urine Not Detected (NotDetected); Methadone Screen, Urine Not Detected (NotDetected); Opiate Screen,Urine Not Detected (NotDetected); Oxycodone Screen, Urine Not Detected (NotDetected); Phencyclidine Screen,Urine Not Detected (NotDetected); Tricyclic Antidepressant,Urine Detected (NotDetected); Urn Cannabinoid Scrn Not Detected (NotDetected)
[2020-06-25] MEDS ORDERED: ALBUTEROL HFA INHALER INHALATION PRN (22:00)
[2020-06-25] MEDS ORDERED: CYCLOBENZAPRINE 10 MG TAB PO PRN (22:00)
[2020-06-25] MEDS ORDERED: ACETAMINOPHEN TAB 500 MG TAB PO PRN (23:00)
[2020-06-25] MEDS ORDERED: OLANZapine 7.5 MG TAB PO SCH (23:00)
[2020-06-25] MEDS: TOPIRAMATE 25 MG TAB PO SCH (23:32)
[2020-06-25] MEDS: PANTOPRAZOLE 40 MG TABLET PO SCH (23:32)
[2020-06-25] MEDS: ATORVASTATIN 40 MG TAB PO SCH (23:32)
[2020-06-25] MEDS: hydrOXYzine pamoate 25 MG CAP PO PRN (23:32)
[2020-06-25] MEDS: PRAZOSIN 1 MG CAP PO SCH (23:32)
[2020-06-25] MEDS: DOXEPIN 25 MG CAP PO SCH (23:42)
[2020-06-26] MEDS ORDERED: MAG HYDROX/AL HYDROX/SIMETH 30 ML CUP PO PRN
[2020-06-26] MEDS ORDERED: flUPHENAZine 2.5 MG/ML (MDV) 10 ML VIAL IM PRN
[2020-06-26] MEDS: ONDANSETRON ODT 4 MG TAB PO PRN (02:36)
[2020-06-26] MEDS: hydrOXYzine pamoate 25 MG CAP PO PRN ×2 (05:52→16:29)
[2020-06-26 07:53] LABS: Glucose,Whole Blood 170 mg/dL (75-99)
[2020-06-26] MEDS ORDERED: MAGNESIUM HYDROXIDE 2,400 MG/10 ML CUP PO PRN (09:00)
[2020-06-26] MEDS ORDERED: tiZANidine 4 MG TAB PO PRN (09:00)
[2020-06-26] MEDS ORDERED: PARoxetine 10 MG TAB PO SCH (09:00)
[2020-06-26] MEDS ORDERED: SUMAtriptan succinate 50 MG TAB PO PRN (09:00)
[2020-06-26] MEDS: NICOTINE 14MG/24HR PATCH TRANSDERM SCH (09:25)
[2020-06-26] MEDS: IBUPROFEN 800 MG TAB PO PRN (09:28)
[2020-06-26] MEDS: PROPRANOLOL 20 MG TAB PO SCH ×3 (09:45→22:28)
[2020-06-26] MEDS ORDERED: LORazepam 2 MG/ML INJ IM PRN ×2 (10:36→11:40)
[2020-06-26] MEDS ORDERED: LORazepam 2 MG/ML INJ ONE (10:38)
[2020-06-26] MEDS ORDERED: ZIPRASIDONE 20 MG VIAL IM STA (10:59)
[2020-06-26] MEDS ORDERED: ZIPRASIDONE 20 MG VIAL IM ONE (11:00)
--- NOTE | 2020-06-26 11:09 | P.MHFACE ---
Face to Face Restrain/Seclus - Evaluation Patient's Immediate Situation: Endangers self safety, Violent behavior Patient's Immediate Situation - Comment: Patient was noted to be having severe anxiety agitation and began crying and started punching herself. Patient was not redirectable and crying severely on the floor. Patient was given Im prn medications and required restraints to prevent further self-harm. Patient's Reaction to the Intervention: Uncooperative, Hostile, Aggressive, Resistive to care Patient's Reaction to the Intervention - Comment: Crying, agitated uncontrollably. Patient's Medical & Behavioral Condition: Anxious, Suicidal thoughts Need to Continue or Terminate Restraint or Seclusion: Continue
[2020-06-26] MEDS ORDERED: LORazepam 2 MG/ML INJ IM STA (11:39)
[2020-06-26] MEDS ORDERED: traZODone HCL 100 MG TAB PO PRN (13:18)
[2020-06-26] MEDS: ARIPiprazole 5 MG TAB PO SCH (13:20)
--- NOTE | 2020-06-26 13:58 | P.MHFACE ---
Face to Face Restrain/Seclus - Evaluation Patient's Immediate Situation: Endangers self safety Patient's Immediate Situation - Comment: Patient was released from restraints and soon after began hitting herself and was not redirectable and did not contract for safety and needed to be placed mary k into restraints. Patient's Reaction to the Intervention: Uncooperative, Anxious, Aggressive, Restless Patient's Reaction to the Intervention - Comment: Archaeologist spoke with patient about need for restraints and patient has very superficial understanding of why she is in restraints. She was not able to contract for safety and continues to request more medications. Patient's Medical & Behavioral Condition: Awake, Alert, Depressed, Suicidal thoughts Need to Continue or Terminate Restraint or Seclusion: Continue
--- NOTE | 2020-06-26 14:12 | P.HP ---
Psychiatric H&P - . H&P Date: 06/26/20 History & Physical: Allergies Allergy/AdvReac Type Severity Reaction Status Date / Time bee pollen Allergy Severe Anaphylaxis Verified 06/25/20 22:13 haloperidol From Haldol Allergy Severe QUIT Verified 06/25/20 22:13 BREATHING haloperidol lactate Allergy Severe QUIT Verified 06/25/20 22:13 From Haldol BREATHING latex Allergy Severe RASH-THROAT Verified 06/25/20 22:13 CLOSES tramadol Allergy Severe Nausea & Verified 06/25/20 22:13 Vomiting murrieta Allergy Anaphylaxis Verified 06/25/20 22:13 coconut Allergy Anaphylaxis Verified 06/25/20 22:13 pineapple Allergy Anaphylaxis Verified 06/25/20 22:13 prednisone Allergy THROAT Verified 06/25/20 22:13 SWELLS spider venom Allergy Swelling Verified 06/25/20 22:13 Sulfa (Sulfonamide Allergy THROAT Verified 06/25/20 22:13 Antibiotics) SWELLS venom-wasp Allergy Swelling Verified 06/25/20 22:13 venom-wasp protein Allergy Swelling Verified 06/25/20 22:13 promethazine HCl AdvReac Severe Nausea & Verified 06/25/20 22:13 From Phenergan Vomiting amoxicillin AdvReac Nausea & Verified 06/25/20 22:13 Vomiting ANTS Allergy Mild Anaphylaxis Uncoded 06/25/20 22:13 Vital Signs Temp 97.6 F 06/26/20 09:41 Pulse 153 H 06/26/20 09:41 Resp 20 06/26/20 09:41 BP 147/70 06/26/20 09:41 Pulse Ox 96 06/26/20 09:41 Intake & Output 06/25/20 06/26/20 06/26/20 18:59 06:59 18:59 Weight 101.151 kg 101.151 kg Laboratory Last Values POC Glucose (mg/dL) 170 mg/dL (75-99) H 06/26/20 07:51 POC Glu Material Damage Appraiser ID Melissa Valdez 06/26/20 07:51 Urine Color Colorless 06/25/20 16:42 Urine Appearance Clear (Clear) 06/25/20 16:42 Urine pH 6.0 (5.0-8.0) 06/25/20 16:42 Ur Specific Ozone 1.003 (1.001-1.035) 06/25/20 16:42 Urine Protein Negative (Negative) 06/25/20 16:42 Urine Glucose (UA) 3+ (Negative) H 06/25/20 16:42 Urine Ketones Negative (Negative) 06/25/20 16:42 Urine Blood Negative (Negative) 06/25/20 16:42 Urine Nitrite Negative (Negative) 06/25/20 16:42 Urine Bilirubin Negative (Negative) 06/25/20 16:42 Urine Urobilinogen <2.0 mg/dL (<2.0) 06/25/20 16:42 Ur Leukocyte Esterase Negative (Negative) 06/25/20 16:42 Urine HCG, Qual Not Detected (Not Detectd) 06/25/20 16:42 Urine Opiates Screen Not Detected (NotDetected) 06/25/20 20:39 Ur Oxycodone Screen Not Detected (NotDetected) 06/25/20 20:39 Urine Methadone Screen Not Detected (NotDetected) 06/25/20 20:39 Ur Propoxyphene Screen Not Detected (NotDetected) 06/25/20 20:39 Ur Barbiturates Screen Not Detected (NotDetected) 06/25/20 20:39 U Tricyclic Antidepress Detected (NotDetected) H 06/25/20 20:39 Ur Phencyclidine Scrn Not Detected (NotDetected) 06/25/20 20:39 Ur Amphetamines Screen Not Detected (NotDetected) 06/25/20 20:39 U Methamphetamines Scrn Not Detected (NotDetected) 06/25/20 20:39 U Benzodiazepines Scrn Not Detected (NotDetected) 06/25/20 20:39 Urine Cocaine Screen Not Detected (NotDetected) 06/25/20 20:39 U Marijuana (THC) Screen Not Detected (NotDetected) 06/25/20 20:39 Coronavirus (PCR) Not Detected (Not Detectd) 06/25/20 20:38 06/26/20 10:34 IDENTIFYING DATA: Patient is a 29-year-old female who is currently living with her in a house has 1 kid and does not have custody of her child. She is collecting Social Security disability. HPI: Patient presented to the hospital yesterday for evaluation in the ER for a head injury. Patient apparently claimed that she had a fall backwards and the bathroom and hit her head. She also complained of lower back pain and headaches which were ongoing. Patient had a computed tomography scan of her brain which did not show any acute changes and a CT of her spine which did not show any fractures or subluxations in her C-spine. Patient also had a lumbar x-ray which did not show any fractures. Patient had a UDS which was positive for TCAs. Patient was adequately cleared from the ER and discharged home however she began being upset and agitated in the ER and made suicidal threats. She was not able to contract for safety and threatened to overdose if she left the hospital. Patient was then seen by APS and then admitted to the psychiatric floor involuntarily. Patient was seen this morning sitting on the floor and required restraints for crying uncontrollably agitation and attempting to harm herself by punching herself. Computer Forwarding System Markup Clerk spoke with patient in the quiet room as patient was in restraints. She cried uncontrollably throughout most of the interview and was difficult to engage with. She spoke about being a "bad mother" and having significant guilt about not being able to see her child for 6 months. She states that "I can't protect him from the father that's why they took him away from me". She states that CPS has not been in contact with her and giving her updates. She claims that she has been having depression and anxiety and panic attacks. She states that she's been having poor sleep at night. She claims that she has ongoing suicidal thoughts however no intent or plan. Patient denies any homicidal ideations intent or plan. At this time patient denies any auditory or visual hallucinations. Patient admits to using no recreational drugs cigarettes or alcohol. PAST PSYCHIATRIC HISTORY: Patient states that she has a history of PTSD and depression and borderline personality disorder. Patient was on doxepin, Zyprexa, Effexor in the past. Patient has had several hospitalizations however her last psychiatric hospitalization was in April 2020. She claims that she has been following up at [facility] and states that she has seen 2 psychiatrists there thus far including Dr. Fisher and Dr. Winters. She admits to 2 suicide attempts when she attempted to overdose and cut herself over 7 years ago. PMH: Asthma, diabetes mellitus, GERD, endometriosis, lupus, degenerative joint disease, migraines ALLERGIES: as per EMR CHEMICAL DEPENDENCY HISTORY: as per HPI FAMILY PSYCHIATRIC/SUBSTANCE USE HISTORY: States that her mother has depression and anxiety. She states that her father has bipolar disorder and schizophrenia SOCIAL HISTORY: Patient was born and raised in [place]. She states that she was adopted at a young age however she was later returned back to her biological father. She states that she dropped out of school in the ninth grade however did return to get her GED. 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 She states that she lives with her in a house has 1 kid and has no custody. She denies any legal or fci/group home time.. MENTAL STATUS EXAM: General Appearance: Patient appears to be overweight, stated age is alert, crying uncontrollably, Visibly upset and tearful. Patient appears to have poor hygiene and grooming. Has dyed pink hair Behavior: Patient is lying on the bed without any agitated behavior. Tearful Speech: Patient's speech is fluent and nonpressured. Loud Mood/Affect: Patient reports their mood is depressed and anxious, affect is congruent and tearful Suicidality/Homicidality: Patient denies having any homicidal ideation intent or plan. She admits to ongoing suicidal thoughts however no intent or plan. Perceptions: Patient denies any visual hallucinations and denies any auditory hallucinations Though content/process: Focused on her stressors, concrete. No delusions or paranoia. Memory and concentration: AOX3, grossly intact for the purposes of this session. Can spell "WORLD" backwards Judgment and insight: poor STRENGTHS/WEAKNESSES: strength is that patient is resilient. Weakness is that patient poor social support and is impulsive. INTELLECT: average IMPRESSIONS: Major depressive disorder, recurrent, severe without psychotic features PTSD Borderline personality disorder PLAN: -Patient is admitted under involuntary status to [facility] for stabilization of psychiatric symptoms and safety. Patient has not signed adult voluntary form and medication consent and is placed in patient's chart. A second certification was completed and along with petition will be filed for court. -Medications : Will start patient on Abilify 5 mg daily for mood stabilization. Trazodone 100 mg daily at bedtime when necessary for sleep. Doxepin 75 mg daily at bedtime for insomnia/mood, Vistaril 50 mg 4 times a day when necessary for anxiety. Discontinued Zyprexa. prazosin 2mg qhs for nightmares. -Ativan and Prolixin PRN for agitation/aggression -Patient was informed of the risks, benefits and side effects of the medication -Internal Medicine consult to perform medical evaluation and physical. -NRT - nicotine patch -SW on board for discharge planning. Encourage patient to participate in groups to work on coping skills. Will await deferral and court date.
[2020-06-26] MEDS: LORazepam 2 MG/ML INJ IM PRN (15:17)
[2020-06-26 16:54] LABS: HCG,Qualitative Serum Not Detected
[2020-06-26 16:56] LABS: African American GFR (CKD) >90 (>60 ml/min/1.73 sqM); Anion Gap 10 mmol/L; Blood Urea Nitrogen 13 mg/dL (7-17); Calcium 10.1 mg/dL (8.4-10.2); Carbon Dioxide 22 mmol/L (22-30); Chloride 104 mmol/L (98-107); Glucose 226 mg/dL (74-99); Non-African American GFR(CKD) 88 (>60 ml/min/1.73 sqM); Potassium 4.2 mmol/L (3.5-5.1); Sodium 136 mmol/L (137-145)
[2020-06-26] MEDS ORDERED: chlorproMAZINE 25 MG/ML 2 ML AMP IM PRN (17:14)
[2020-06-26 17:16] LABS: Basophils % (A) 0 %; Eosinophils # (A) 0.1 k/uL (0-0.7); Eosinophils % (A) 1 %; HCT 42.1 % (34.0-46.0); Lymphocytes # (A) 2.6 k/uL (1.0-4.8); Lymphocytes % (A) 34 %; MCH 31.1 pg (25.0-35.0); MCHC 34.6 g/dL (31.0-37.0); Mean Platelet Volume 7.4; Monocytes # (A) 0.4 k/uL (0-1.0); Monocytes % (A) 5 %; Neutrophils # (A) 4.5 k/uL (1.3-7.7); Neutrophils % (A) 59 %; Platelet Count 251 k/uL (150-450); RBC 4.68 m/uL (3.80-5.40); RDW 12.7 % (11.5-15.5); WBC 7.7 k/uL (3.8-10.6)
[2020-06-26 17:19] LABS: HGB 14.6 gm/dL (11.4-16.0); MCV 89.9 fL (80.0-100.0)
[2020-06-26] MEDS ORDERED: chlorproMAZINE 25 MG/ML 2 ML AMP IM STA (17:21)
--- NOTE | 2020-06-26 17:47 | P.MHFACE ---
Face to Face Restrain/Seclus - Evaluation Patient's Immediate Situation: Endangers self safety Patient's Immediate Situation - Comment: This is the patients 3rd time in restraints today. She began hitting herself repeatedly in the head. She has received multiple medications which were ineffective as well a verbal redirection. Currently patient is calm and cooperative following directions. She complains of a headache in the back of her head where she fell prior to admission. She reports feeling lightheaded. moving all 4 extremities independently, credit consultant strength equal bilateral, pupils dilated but reactive, palate elevation equal bilateral and no tongue deviation. Recommend to continue restraints at this time with frequent rechecks and discontinue if remains redirectable and cooperative. Patient's Reaction to the Intervention: Cooperative Patient's Medical & Behavioral Condition: Awake, Follows directions Need to Continue or Terminate Restraint or Seclusion: Continue
[2020-06-26] MEDS: ATORVASTATIN 40 MG TAB PO SCH (22:27)
[2020-06-26] MEDS: TOPIRAMATE 25 MG TAB PO SCH (22:28)
[2020-06-26] MEDS: PRAZOSIN 1 MG CAP PO SCH (22:28)
[2020-06-26] MEDS: PANTOPRAZOLE 40 MG TABLET PO SCH (22:28)
[2020-06-26] MEDS: DOXEPIN 25 MG CAP PO SCH (22:28)
--- NOTE | 2020-06-26 23:44 | P.CONS ---
History of Present Illness - History of Present Illness This is a pleasant 29 years old female with past medical history of asthma, d iabetes mellitus, GERD, migraine. Presents to the mental health unit for signs symptoms of major depressive disorder and PTSD with suicidal ideation. Medical consult has been requested for routine medical management. Patient denies chest pain or dyspnea or abdominal pain or nausea vomiting or fe diego. She states she has some head trauma when she fell in the bathroom the back of her head. She denies weakness or numbness. She has some headache which is different than her migraine headache, discomfort with Tylenol. No blurred vision or numbness. She had normal computed tomography scan of the brain and cervical spine in the emergency room Lumbar spine x-ray normal except Vital showing a slightly tachycardic this morning at 153, propranolol was a started on currently her heart rate is 103. Labs: Glucose slightly elevated CBC, BMP were unremarkable. Serum hCG is not detected. Urine analysis is still suspicious for infection but shows 3+ glucose Urine drug screen is positive for tricyclic antidepressant. Coronavirus not detected Review of Systems CONSTITUTIONAL: No fever, no malaise, no fatigue. HEENT: No recent visual problems or hearing problems. Denied any sore throat. CARDIOVASCULAR: No orthopnea, PND, no palpitations, no syncope. PULMONARY: No shortness of breath, no cough, no hemoptysis. GASTROINTESTINAL: No diarrhea, no nausea, no vomiting, no abdominal pain. Normoactive bowel sounds. NEUROLOGICAL: No headaches, no weakness, no numbness. HEMATOLOGICAL: Denies any bleeding or petechiae. GENITOURINARY: Denies any burning micturition, frequency, or urgency. MUSCULOSKELETAL/RHEUMATOLOGICAL: Denies any joint pain, swelling, or any muscle pain. ENDOCRINE: Denies any polyuria or polydipsia. Past Medical History Past Medical History: Asthma, Diabetes Mellitus, GERD/Reflux Additional Past Medical History / Comment(s): migraines, degenerative disk disease, endometriosis, lupus, pancreatitis History of Any Multi-Drug Resistant Organisms: None Reported Past Surgical History: Orthopedic Surgery Additional Past Surgical History / Comment(s): laparoscopc surgery for endometriosis, cyst removed from left foot, EGD Past Anesthesia/Blood Transfusion Reactions: Previous Problems w/ Anesthesia Additional Past Anesthesia/Blood Transfusion Reaction / Comm: hard to wake up for 48-72 hours after laparoscopic surgery-was in hosp. for 3 days Past Psychological History: Anxiety, Depression, PTSD Smoking Status: Current every day smoker, Vaper Past Alcohol Use History: Occasional Additional Past Alcohol Use History / Comment(s): pt states that she occasionally has a "glass or two" of vodka that she mixes with Mountain Dew. Past Drug Use History: None Reported Additional Drug Use History / Comment(s): pt states that "I hit the vape constantly through the day." pt reports that she has a 100 mg vape pen that she refills 6 times per day. - Past Family History Mother Family Medical History: No Reported History Additional Family Medical History / Comment(s): hx migraines Father Family Medical History: Coronary Artery Disease (CAD), Hypertension Additional Family Medical History / Comment(s): ddd, alcoholism & drug use Medications and Allergies Home Medications Medication Instructions Recorded Confirmed Type EPINEPHrine [Epipen 2-Mike] 0.3 mg IM ONCE PRN 10/16/18 06/25/20 History Topiramate [Topamax] 100 mg PO HS 05/08/19 06/25/20 History tiZANidine [Zanaflex] 4 mg PO BID PRN 05/08/19 06/25/20 History Omeprazole [PriLOSEC] 40 mg PO HS 03/04/20 06/25/20 History OLANZapine [ZyPREXA] 7.5 mg PO HS 30 Days tablet 04/30/20 06/25/20 Rx Doxepin HCl 75 mg PO HS 05/24/20 06/25/20 History PARoxetine [Paxil] 10 mg PO DAILY 05/24/20 06/25/20 History Prazosin HCl 2 mg PO HS 05/24/20 06/25/20 History hydrOXYzine pamoate [Vistaril] 50 mg PO QID PRN 05/24/20 06/25/20 History Ondansetron Odt [Zofran Odt] 4 mg PO Q8HR PRN #10 tab 06/24/20 06/25/20 Rx Ibuprofen [Motrin] 600 mg PO Q6HR PRN 06/25/20 06/25/20 History Rimegepant Sulfate [Nurtec Odt] 75 mg PO TID PRN 06/25/20 06/25/20 History Allergies Allergy/AdvReac Type Severity Reaction Status Date / Time bee pollen Allergy Severe Anaphylaxis Verified 06/25/20 22:13 haloperidol [From Haldol] Allergy Severe QUIT Verified 06/25/20 22:13 BREATHING haloperidol lactate Allergy Severe QUIT Verified 06/25/20 22:13 [From Haldol] BREATHING latex Allergy Severe RASH-THROAT Verified 06/25/20 22:13 CLOSES tramadol Allergy Severe Nausea & Verified 06/25/20 22:13 Vomiting murrieta Allergy Anaphylaxis Verified 06/25/20 22:13 coconut Allergy Anaphylaxis Verified 06/25/20 22:13 pineapple Allergy Anaphylaxis Verified 06/25/20 22:13 prednisone Allergy THROAT Verified 06/25/20 22:13 SWELLS spider venom Allergy Swelling Verified 06/25/20 22:13 Sulfa (Sulfonamide Allergy THROAT Verified 06/25/20 22:13 Antibiotics) SWELLS venom-wasp Allergy Swelling Verified 06/25/20 22:13 venom-wasp protein Allergy Swelling Verified 06/25/20 22:13 promethazine HCl AdvReac Severe Nausea & Verified 06/25/20 22:13 [From Phenergan] Vomiting amoxicillin AdvReac Nausea & Verified 06/25/20 22:13 Vomiting ANTS Allergy Mild Anaphylaxis Uncoded 06/25/20 22:13 Physical Exam Vitals: Vital Signs Temp Pulse Pulse Pulse Pulse Pulse Resp 06/26/20 16:13 96.7 F L 103 H 20 06/26/20 10:45 79 06/26/20 09:41 97.6 F 153 H 20 06/25/20 23:06 97.7 F 112 H 12 06/25/20 18:29 98.3 F 102 H 20 BP BP BP Pulse Ox 06/26/20 16:13 153/96 98 06/26/20 10:45 06/26/20 09:41 147/70 96 06/25/20 23:06 171/96 98 06/25/20 18:29 124/80 100 Intake and Output 06/26/20 06/26/20 06/26/20 06:59 14:59 22:59 Other: Weight 101.151 kg -GENERAL: The patient is alert and oriented x3, not in any acute distress. Morbidly obese HEENT: Pupils are round and equally reacting to light. EOMI. No scleral icterus. No conjunctival pallor. Normocephalic, atraumatic. No pharyngeal erythema. No t hyromegaly. CARDIOVASCULAR: S1 and S2 present. No murmurs, rubs, or gallops. PULMONARY: Chest is clear to auscultation, no wheezing or crackles. ABDOMEN: Soft, nontender, nondistended, normoactive bowel sounds. No palpable organomegaly. MUSCULOSKELETAL: No joint swelling or deformity. EXTREMITIES: No cyanosis, clubbing, or pedal edema. NEUROLOGICAL: Gross neurological examination did not reveal any focal deficits. SKIN: No rashes. No petechiae Results CBC & Chem 7: 06/26/20 16:43 06/26/20 16:43 Labs: Abnormal Lab Results - Last 24 Hours (Table) 06/25/20 06/25/20 06/26/20 Range/Units 16:42 20:39 07:51 POC Glucose (mg/dL) 170 H (75-99) mg/dL Urine Glucose (UA) 3+ H (Negative) U Tricyclic Antidepress Detected H (NotDetected) Assessment and Plan Assessment: -Depression or suicidal ideation and PTSD and other psychiatric illnesses, manag ement as per psych team -Tachycardia, mostly related to her anxiety, check EKG -Migraine, continue with Imitrex, propranolol and Topamax -Asthma, not in active tissue -GERD, not an active issue -Diabetes mellitus: Hemoglobin A1c was 6.6% last time. Recheck hemoglobin A1c. Continue with low carbohydrate diet -Morbid Obesity BMI of 38. Dietary consult Patient is mobile and low risk for DVT We'll recommend patient follow up with her PCP Dr. calderón in 1 week after discharge. Patient was instructed with the same Thank you for consulting us and we will see the patient on as needed basis, please feel free to contact us for any further questions
[2020-06-27] MEDS: LORazepam 2 MG/ML INJ IM PRN ×4 (01:45→21:19)
[2020-06-27 07:33] LABS: Hemoglobin A1C 7.5 % (4.0-6.0)
[2020-06-27 08:09] LABS: Glucose,Whole Blood 147 mg/dL (75-99)
[2020-06-27] MEDS: NICOTINE 14MG/24HR PATCH TRANSDERM SCH (08:48)
[2020-06-27] MEDS: PROPRANOLOL 20 MG TAB PO SCH ×3 (08:48→21:11)
[2020-06-27] MEDS: IBUPROFEN 800 MG TAB PO PRN (08:48)
[2020-06-27] MEDS: ARIPiprazole 5 MG TAB PO SCH (08:48)
[2020-06-27] MEDS ORDERED: diphenhydrAMINE 50 MG/ML 1 ML VIAL IM PRN (10:03)
[2020-06-27] MEDS: metFORMIN 500 MG TAB PO SCH ×2 (11:13→20:17)
[2020-06-27 11:35] VITALS: BMI 38.2
[2020-06-27] MEDS ORDERED: diphenhydrAMINE 50 MG CAP PO PRN (11:40)
--- NOTE | 2020-06-27 11:49 | P.PN ---
Progress Note - Text Progress Note Date: 06/27/20 Interval History: Patient was seen lying in the quiet room today and was directable and agreeable to speak with speech writer in the office. Patient was laying on the bed next to her one-to-one sitter. She was covered in blankets and appeared to be somewhat tired and upset. She continues to speak about her anxiety today. She was requesting different medications and "something more than Vistaril". She states that her mood is "doing better" compared to yesterday. She states that she is not currently having any suicidal thoughts or thoughts of one harm herself but claims that she does hear voices at times telling her "to hurt myself". She states that she has mainly been staying in the quiet room however did get up to walk a little bit yesterday and found it difficult and needed to return back to the room. She states she is still thinking about her child. She states that she found it difficult to sleep last night and needed an injection of Prolixin. At this time patient denies any suicidal or homical ideations, intent or plan. Patient denies any visual hallucinations and denies any paranoia or delusions. Patient denies any side effects from the medications and has been compliant with meds. Mental Status Exam: General Appearance: Patient appears to be overweight, stated age is alert, more directable today however appears to be upset. Dyed pink hair and mildly improving hygiene and grooming. Behavior: Patient is laying in the bed without any agitated behavior. Appears t o be upset. Speech: Patient's speech is fluent and nonpressured. Soft tone of voice Mood/Affect: Mood is improving mildly, affect is congruent Suicidality/Homicidality: Patient denies having any current suicidal or homicidal ideation intent or plan. Perceptions: Patient denies any visual hallucinations and denies any auditory hallucinations Though content/process: Patient is preoccupied with her symptoms and her son. Logical. Catastrophizing Memory and concentration: AOX3, grossly intact for the purposes of this session Judgment and insight: Poor/impulsive Assessment Major depressive disorder, recurrent, severe without psychotic features PTSD Borderline personality disorder Plan: -Patient continues to meet criteria for inpatient psychiatric admission for symptom stabilization and safety. Patient has not signed adult voluntary form and medication consent and was placed in patient's chart. -Medications: Increased Abilify to 7.5 mg daily for mood stabilization. Increase trazodone to 150 mg daily at bedtime for mood/insomnia. Discontinue doxepin. Continue Vistaril 50 mg 4 times a day when necessary for anxiety. Continue with prazosin 2 mg daily at bedtime for nightmares. Started patient on Zoloft 50 mg daily for mood/anxiety. BuSpar 10 mg 3 times a day for anxiety. added benadryl 50mg qhs prn for insomnia -When necessary Ativan and Prolixin for agitation/aggression. -continue with 1:1 sitter for safety. -NRT - nicotine patch -SW on board for discharge planning. Encouraged the patient to participate in milieu. Currently awaiting deferral with senior attorney and court date.
[2020-06-27] MEDS: SERTRALINE 50 MG TAB PO SCH (12:26)
[2020-06-27 13:08] LABS: Glucose,Whole Blood 168 mg/dL (75-99)
[2020-06-27] MEDS ORDERED: busPIRone HCl 10 MG TAB PO STA (13:08)
[2020-06-27] MEDS: hydrOXYzine pamoate 25 MG CAP PO PRN (13:17)
[2020-06-27] MEDS: INSULIN ASPART (NovoLOG) 100 UNIT/ML VIAL SQ SCH ×3 (13:18→20:19)
[2020-06-27] MEDS: busPIRone HCl 10 MG TAB PO SCH ×2 (18:09→21:11)
[2020-06-27 20:11] LABS: Glucose,Whole Blood 144 mg/dL (75-99)
[2020-06-27] MEDS ORDERED: traZODone HCL 50 MG TAB PO SCH (21:00)
[2020-06-27] MEDS: ATORVASTATIN 40 MG TAB PO SCH (21:09)
[2020-06-27] MEDS: PANTOPRAZOLE 40 MG TABLET PO SCH (21:09)
[2020-06-27] MEDS: TOPIRAMATE 25 MG TAB PO SCH (21:10)
[2020-06-27] MEDS: PRAZOSIN 1 MG CAP PO SCH (21:10)
[2020-06-28] MEDS: hydrOXYzine pamoate 25 MG CAP PO PRN ×2 (03:22→17:01)
[2020-06-28] MEDS: LORazepam 2 MG/ML INJ IM PRN ×2 (07:19→23:25)
[2020-06-28 07:46] LABS: Glucose,Whole Blood 146 mg/dL (75-99)
[2020-06-28] MEDS: INSULIN ASPART (NovoLOG) 100 UNIT/ML VIAL SQ SCH ×4 (08:07→20:38)
[2020-06-28] MEDS: ARIPiprazole 5 MG TAB PO SCH (08:08)
[2020-06-28] MEDS: SERTRALINE 50 MG TAB PO SCH (08:08)
[2020-06-28] MEDS: NICOTINE 14MG/24HR PATCH TRANSDERM SCH (08:08)
[2020-06-28] MEDS: metFORMIN 500 MG TAB PO SCH ×2 (08:08→17:37)
[2020-06-28] MEDS: PROPRANOLOL 20 MG TAB PO SCH ×3 (08:08→20:35)
[2020-06-28] MEDS: busPIRone HCl 10 MG TAB PO SCH (08:08)
--- NOTE | 2020-06-28 11:07 | P.PN ---
Progress Note - Text Progress Note Date: 06/28/20 Interval History: Patient was seen lying on her bed this morning and was directable and agreeable to speak. Patient continues to have a one-to-one sitter. She was covered in blankets and was sleeping initially however was awoken by internal communications writer. She appears to be calmer and her affect and states that she is feeling "a bit better" with regrets her mood today. She states that she is continuing to have significant anxiety and states that it's "catherine high". She states that she spoke with her yesterday over the phone and claims that "my wants me to come home and I want to go home". She states that the conversation went well. She states that she is still feeling emotionally unstable however has noticed improvement. She claims that it was difficult for her to initiate sleep last night however was able to sleep throughout the night with some awakenings. She continues to take her medications as prescribed. She states that she is not currently having any suicidal thoughts or thoughts of one harm herself today. She states she is still thinking about her child. At this time patient denies any suicidal or homical ideations, intent or plan. Patient denies any visual hallucinations and denies any paranoia or delusions. Patient denies any side effects from the medications and has been compliant with meds. Mental Status Exam: General Appearance: Patient appears to be overweight, stated age is alert, more directable today. Less tearful. Dyed pink hair and mildly improving hygiene and grooming. Behavior: Patient is laying in the bed without any agitated behavior. Less tearful today. Speech: Patient's speech is fluent and nonpressured. Soft tone of voice Mood/Affect: Mood is improving mildly, affect is congruent Suicidality/Homicidality: Patient denies having any current suicidal or homicidal ideation intent or plan. Perceptions: Patient denies any visual hallucinations and denies any auditory hallucinations Though content/process: Patient is preoccupied with her anxiety and also focused on discharge today. Logical. Memory and concentration: AOX3, grossly intact for the purposes of this session Judgment and insight: Poor, improving mildly Assessment Major depressive disorder, recurrent, severe without psychotic features PTSD Borderline personality disorder Plan: -Patient continues to meet criteria for inpatient psychiatric admission for symptom stabilization and safety. Patient has not signed adult voluntary form and medication consent and was placed in patient's chart. -Medications: Continue with Abilify to 7.5 mg daily for mood stabilization. Increased trazodone to 200 mg daily at bedtime for mood/insomnia. Continue Vistaril 50 mg 4 times a day when necessary for anxiety. Continue with prazosin 2 mg daily at bedtime for nightmares. increased Zoloft 100 mg daily for mood/anxiety. increased BuSpar 15 mg 3 times a day for anxiety. Continue with benadryl 50mg qhs prn for insomnia -When necessary Ativan and Prolixin for agitation/aggression. -Today will attempt to discontinue 1:1 sitter as patient appears to be michael for safety, is less anxious and labile and also denying any suicidal ideations. -NRT - nicotine patch -SW on board for discharge planning. Encouraged the patient to participate in milieu. Patient ended up deferring today with her long chain quiller tender. If patient does well over the weekend will consider discharge early next week.
[2020-06-28 13:09] LABS: Glucose,Whole Blood 160 mg/dL (75-99)
[2020-06-28] MEDS: busPIRone HCl 5 MG TAB PO SCH ×2 (17:01→20:34)
[2020-06-28 17:38] LABS: Glucose,Whole Blood 179 mg/dL (75-99)
--- NOTE | 2020-06-28 19:28 | XR ---
EXAMINATION TYPE: XR wrist limited RT DATE OF EXAM: 06/28/2020 COMPARISON: 05/08/2020 HISTORY: Pain TECHNIQUE: 2 views FINDINGS: I see no fracture nor dislocation. Carpal bones are intact. Joint spaces are fairly normal. IMPRESSION: Negative right wrist exam. No change.
--- NOTE | 2020-06-28 19:30 | XR ---
EXAMINATION TYPE: XR knee complete RT DATE OF EXAM: 06/28/2020 COMPARISON: 07/15/2016 HISTORY: Knee pain TECHNIQUE: 3 views FINDINGS: I see no fracture nor dislocation. Joint spaces are normal. There is no sign of knee joint effusion. IMPRESSION: Negative right knee exam. No fracture.
[2020-06-28 20:10] LABS: Glucose,Whole Blood 147 mg/dL (75-99)
[2020-06-28] MEDS: PANTOPRAZOLE 40 MG TABLET PO SCH (20:34)
[2020-06-28] MEDS: ATORVASTATIN 40 MG TAB PO SCH (20:35)
[2020-06-28] MEDS: PRAZOSIN 1 MG CAP PO SCH (20:35)
[2020-06-28] MEDS: TOPIRAMATE 25 MG TAB PO SCH (20:35)
[2020-06-28] MEDS ORDERED: traZODone HCL 100 MG TAB PO SCH (21:00)
[2020-06-29 08:05] LABS: Glucose,Whole Blood 178 mg/dL (75-99)
[2020-06-29] MEDS: INSULIN ASPART (NovoLOG) 100 UNIT/ML VIAL SQ SCH ×4 (08:05→20:15)
[2020-06-29] MEDS: NICOTINE 14MG/24HR PATCH TRANSDERM SCH (08:06)
[2020-06-29] MEDS: metFORMIN 500 MG TAB PO SCH ×2 (08:07→17:45)
[2020-06-29] MEDS: PROPRANOLOL 20 MG TAB PO SCH ×3 (08:07→20:09)
[2020-06-29] MEDS: busPIRone HCl 5 MG TAB PO SCH ×3 (08:07→20:09)
[2020-06-29] MEDS: ARIPiprazole 5 MG TAB PO SCH (08:07)
[2020-06-29] MEDS: SERTRALINE 100 MG TAB PO SCH (08:29)
[2020-06-29 12:44] LABS: Glucose,Whole Blood 155 mg/dL (75-99)
--- NOTE | 2020-06-29 15:29 | P.PN ---
Progress Note - Text Progress Note Date: 06/29/20 Clinical Problems: Major depressive disorder recurrent severe with psychotic features, PTSD, borderline personality disorder Interim history: Reviewed the medical record and interviewed the patient. She is a 29-year-old female admitted to the psychiatric unit involuntarily with professional and suicidal ideation. She had several episodes of seclusion and restraint and was placed on one-to-one due to repeated episodes of self- harm. We discontinued one-to-one on 06/27/2020. She stated she feels much better and denied having thoughts of or self- harm. She wishes to go home. She is requested to be taken off finger foods (apparently a finger food diet is ordered when a person is on one-to-one) and there have her antidepressant changed from trazodone back to Sinequan. She alleged that she is unaware of the reason why her attending psychiatrist contact continued the Sinequan an increased dose of trazodone. She believes that she "does better" with the Sinequan is supposed to the trazodone. She is beginning to attend therapeutic groups and activities. She slept 7 hours last night. Mental status exam: She presented as a moderately obese young female with pink hair. She made eye contact and attended the interview. She was sad facial expression. She was alert and oriented to person, place and time. She had psychomotor retardation but no abnormal involuntary movements. Her speech was spontaneous with slight decrease in rate and rhythm. His affect was depressed. She denied suicidal ideation, wishes or homicidal ideation. She did not express feelings of hopelessness, helplessness or worthlessness. She ruminated about this hospitalization and lost custody of her child. She denied express ideas reference, paranoid ideation or delusions. Her thinking was concrete but her associations were coherent, logical and goal directed. She denied hallucinations did not appear to responding to internal stimuli. Assessment: She has had no episodes of agitation or self-harm since we discontinued one-to-one. She is report of better sleep with Sinequan as opposed to trazodone. Plan: Continue inpatient treatment. Safety precautions. Continue Abilify 7.5 mg daily, BuSpar 15 mg 3 times a day, Vistaril 50 mg by mouth 4 times a day when necessary for anxiety, Minipress 2 mg at bedtime, Zoloft 100 mg daily. Restart Sinequan 50 mg at bedtime and titrated according to clinical response and tolerance. Decrease trazodone to 150 mg at bedtime and taper depending on response to Sinequan. Encourage participation in therapeutic groups and activities. Evaluate clinical status response to treatment daily basis.
[2020-06-29 17:43] LABS: Glucose,Whole Blood 162 mg/dL (75-99)
[2020-06-29] MEDS: PRAZOSIN 1 MG CAP PO SCH (20:08)
[2020-06-29] MEDS: TOPIRAMATE 25 MG TAB PO SCH (20:09)
[2020-06-29] MEDS: ATORVASTATIN 40 MG TAB PO SCH (20:09)
[2020-06-29 20:11] LABS: Glucose,Whole Blood 137 mg/dL (75-99)
[2020-06-29] MEDS: PANTOPRAZOLE 40 MG TABLET PO SCH (20:11)
[2020-06-29] MEDS ORDERED: DOXEPIN 25 MG CAP PO SCH (21:00)
[2020-06-29] MEDS ORDERED: traZODone HCL 100 MG TAB PO SCH (21:00)
[2020-06-30 07:57] LABS: Glucose,Whole Blood 120 mg/dL (75-99)
[2020-06-30] MEDS: INSULIN ASPART (NovoLOG) 100 UNIT/ML VIAL SQ SCH ×4 (08:04→21:30)
[2020-06-30] MEDS: busPIRone HCl 5 MG TAB PO SCH ×3 (09:08→21:21)
[2020-06-30] MEDS: PROPRANOLOL 20 MG TAB PO SCH ×3 (09:08→21:21)
[2020-06-30] MEDS: NICOTINE 14MG/24HR PATCH TRANSDERM SCH (09:08)
[2020-06-30] MEDS: SERTRALINE 100 MG TAB PO SCH (09:08)
[2020-06-30] MEDS: ARIPiprazole 5 MG TAB PO SCH (09:09)
[2020-06-30] MEDS: metFORMIN 500 MG TAB PO SCH ×2 (09:09→17:39)
[2020-06-30 12:57] LABS: Glucose,Whole Blood 136 mg/dL (75-99)
[2020-06-30] MEDS ORDERED: traZODone HCL 100 MG TAB PO PRN (13:19)
--- NOTE | 2020-06-30 13:20 | P.PN ---
Progress Note - Text Progress Note Date: 06/30/20 Clinical Problems: Major depressive disorder recurrent severe with psychotic features, PTSD, borderline personality disorder Interim history: I reviewed the medical record and interviewed the patient. "I just want to go home." She complained about the continued stay and repeatedly expressed her desire to be discharged and return home. She felt that she slept "a little bit" better last night with the 50 mg dose of Sinequan. However, she requested medication early this morning because she needed something to help her sleep and that she has bothered by troublesome thoughts. She received 5 mg of Prolixin and 50 mg of Benadryl. She's had no episodes of behavioral dyscontrol, self harm or agitation over the last 24 hours. She attended two therapeutic groups and activities. She slept 4 hours last night. Mental status exam: She presented as a moderately obese young female with pink hair. She made eye contact and attended the interview. She had a sad facial expression. She was alert and oriented to person, place and time. She had psychomotor retardation but no abnormal involuntary movements. Her speech was spontaneous with decreased rate and rhythm. His affect was depressed and not reactive. She denied suicidal ideation, wishes or homicidal ideation. She did not express feelings of hopelessness, helplessness or worthlessness. She ruminated about this hospitalization and lost custody of her child. She denied express ideas reference, paranoid ideation or delusions. Her thinking was concrete but her associations were coherent, logical and goal directed. She denied hallucinations did not appear to responding to internal stimuli. Assessment: She has had no episodes of agitation or self-harm since we discontinued one-to-one. She continues to complain of poor sleep. Plan: Continue inpatient treatment. Safety precautions. Continue Abilify 7.5 mg daily, BuSpar 15 mg 3 times a day, Vistaril 50 mg by mouth 4 times a day when necessary for anxiety, Minipress 2 mg at bedtime, Zoloft 100 mg daily. Increase Sinequan 100 mg at bedtime and titrated according to clinical response and tolerance. Change trazodone to 1o0 mg at bedtime when necessary for sleep. Encourage participation in therapeutic groups and activities. Evaluate clinical status response to treatment daily basis.
[2020-06-30 17:38] LABS: Glucose,Whole Blood 127 mg/dL (75-99)
[2020-06-30] MEDS ORDERED: DOXEPIN 25 MG CAP PO SCH (21:00)
[2020-06-30] MEDS: PANTOPRAZOLE 40 MG TABLET PO SCH (21:21)
[2020-06-30] MEDS: ATORVASTATIN 40 MG TAB PO SCH (21:21)
[2020-06-30] MEDS: PRAZOSIN 1 MG CAP PO SCH (21:22)
[2020-06-30] MEDS: TOPIRAMATE 25 MG TAB PO SCH (21:23)
[2020-06-30 21:30] LABS: Glucose,Whole Blood 210 mg/dL (75-99)
[2020-07-01] MEDS: INSULIN ASPART (NovoLOG) 100 UNIT/ML VIAL SQ SCH (07:59)
[2020-07-01] MEDS: ONDANSETRON ODT 4 MG TAB PO PRN (08:01)
[2020-07-01 08:08] LABS: Glucose,Whole Blood 117 mg/dL (75-99)
[2020-07-01] MEDS: metFORMIN 500 MG TAB PO SCH (09:21)
[2020-07-01] MEDS: ARIPiprazole 5 MG TAB PO SCH (09:22)
[2020-07-01] MEDS: busPIRone HCl 5 MG TAB PO SCH (09:22)
[2020-07-01] MEDS: NICOTINE 14MG/24HR PATCH TRANSDERM SCH (09:22)
[2020-07-01] MEDS: PROPRANOLOL 20 MG TAB PO SCH ×2 (09:22→09:38)
[2020-07-01] MEDS: SERTRALINE 100 MG TAB PO SCH (09:23)
[2020-07-01 09:43] VITALS: BP 118/55; PULSE 104; RESP 20; TEMP 96.5
[2020-07-01 10:13] LABS: Basophils % (A) 0 %; Eosinophils # (A) 0.1 k/uL (0-0.7); Eosinophils % (A) 1 %; HCT 41.3 % (34.0-46.0); Lymphocytes # (A) 3.3 k/uL (1.0-4.8); Lymphocytes % (A) 46 %; MCH 29.5 pg (25.0-35.0); MCV 86.6 fL (80.0-100.0); Mean Platelet Volume 7.6; Monocytes # (A) 0.3 k/uL (0-1.0); Monocytes % (A) 4 %; Neutrophils # (A) 3.3 k/uL (1.3-7.7); Neutrophils % (A) 47 %; Platelet Count 267 k/uL (150-450); RBC 4.77 m/uL (3.80-5.40); RDW 13.2 % (11.5-15.5); WBC 7.2 k/uL (3.8-10.6)
[2020-07-01 10:39] LABS: African American GFR (CKD) >90 (>60 ml/min/1.73 sqM); Anion Gap 9 mmol/L; Blood Urea Nitrogen 16 mg/dL (7-17); Calcium 10.9 mg/dL (8.4-10.2); Carbon Dioxide 21 mmol/L (22-30); Chloride 105 mmol/L (98-107); Glucose 159 mg/dL (74-99); Non-African American GFR(CKD) 88 (>60 ml/min/1.73 sqM); Sodium 135 mmol/L (137-145)
[2020-07-01 10:47] LABS: Potassium 4.8 mmol/L (3.5-5.1)
--- NOTE | 2020-07-01 11:23 | P.DS ---
Providers Date of admission: 06/25/20 21:38 Expected date of discharge: 07/01/20 Attending physician: Kane Urrutia MD Consults: 06/25/20 21:45 Consult Physician Routine Consulting Provider: Teo Leblanc Consult Reason/Comments: H&P and medical Do you want consulting provider notified?: Yes Primary care physician: Isi Carolina - Discharge Diagnosis(es) (1) Major depressive disorder, recurrent severe without psychotic features Current Visit: Yes Status: Acute Priority: High (2) PTSD (post-traumatic stress disorder) Current Visit: Yes Status: Acute Priority: Medium (3) Borderline personality disorder Current Visit: Yes Status: Acute Priority: High Hospital Course: Admission HPI: Admission note was completed by remote mortgage underwriter "Patient is a 29-year-old female who is currently living with her in a house has 1 kid and does not have custody of her child. She is collecting Social Security disability. Patient presented to the hospital yesterday for evaluation in the ER for a head injury. Patient apparently claimed that she had a fall backwards and the bathro om and hit her head. She also complained of lower back pain and headaches which were ongoing. Patient had a computed tomography scan of her brain which did not show any acute changes and a CT of her spine which did not show any fractures or subluxations in her C-spine. Patient also had a lumbar x-ray which did not show any fractures. Patient had a UDS which was positive for TCAs. Patient was adequately cleared from the ER and discharged home however she began being upset and agitated in the ER and made suicidal threats. She was not able to contract for safety and threatened to overdose if she left the hospital. Patient was then seen by APS and then admitted to the psychiatric floor involuntarily. Patient was seen this morning sitting on the floor and required restraints for crying uncontrollably agitation and attempting to harm herself by punching herself. [employer] spoke with patient in the quiet room as patient was in restraints. She cried uncontrollably throughout most of the interview and was difficult to engage with. She spoke about being a "bad mother" and having significant guilt about not being able to see her child for 6 months. She states that "I can't protect him from the father that's why they took him away from me". She states that CPS has not been in contact with her and giving her updates. She claims that she has been having depression and anxiety and panic attacks. She states that she's been having poor sleep at night. She claims that she has ongoing suicidal thoughts however no intent or plan. Patient denies any homicidal ideations intent or plan. At this time patient denies any auditory or visual hallucinations. Patient admits to using no recreational drugs cigarettes or alcohol." Hospital course: Upon admission to the unit patient was initially depressed and anxious and suicidal. Patient was however directable and agreeable to commence treatment and signed adult voluntary form. Patient required restraints/seclusion 3 times while on the unit for self-harm and agitation. Patient also required several IM prn doses for agitation and anxiety. Patient eventually improved and began taking her medications and got along well with other patients on the unit and followed unit protocol. Patient was compliant with the medications and denied any side effects throughout hospital course. Patient was started on Abilify and titrated up to a dose of 7.5 mg daily for mood stabilization. She was also started on BuSpar 15 mg 3 times a day for anxiety, Vistaril was continued at 50 mg 4 times a day for anxiety, Minipress 2 mg daily at bedtime for nightmares, Zoloft which was titrated up to dose of 100 mg daily for mood/anxiety. Patient was restarted back on her Sinequan up to a dose of 100 mg daily at bedtime for insomnia and trazodone was eventually discontinued to poor tolerance. She was started on Benadryl 50 mg daily at bedtime when necessary for insomnia. Patient spoke of her stressors and engaged in therapy both group and individual. Patient was also seen by medical team for history and physical exam. Patient had a computed tomography scan of her brain and C-spine without contrast on 06/[address] of the brain and normal CT of the C-spine with no changes. Patient also had a x-ray of her lumbar spine on 06/25 for back pain which showed a normal lumbar spine exam with no changes. Patient had a x-ray of her knee RT on 06/28/20 for knee pain which showed a negative exam of the knee with no fractures. She also had an x-ray of her right wrist on 06/28/20 which did not show any changes and was a negative exam. Throughout the course of the hospitalization patient gradually improved with regards to mood, anxiety, suicidal thoughts and behaviors, sleep and became more future oriented with improved insight and judgment. On the day of discharge patient denied any suicidal or homicidal ideations intent or plan denied any auditory or visual hallucinations. Patient endorsed wanting to live for her children and her future. The patient denied any access to guns or weapons. Patient denied any paranoia and did not endorse any delusions. Patient does not have a significant history of substance abuse however was counseled on abstaining from all substances including alcohol and marijuana. Patient was also counseled on the medications and need for regular compliance and was encouraged to follow-up with their outpatient appointment for mental health and also for primary care. Prior to discharge a family meeting will be arranged by social services technician to answer any questions and ensure safety upon discharge. Mental status exam: General Appearance: Patient appears to be overweight, stated age is alert, more directable, and cooperative. Patient is in no acute distress and has improved hygiene and grooming Behavior: Patient is calmly seated without any agitated behavior. Speech: Patient's speech is fluent and nonpressured. Mood/Affect: Patient reports their mood is "better", affect is congruent and euthymic. Suicidality/Homicidality: Patient denies having any suicidal or homicidal ideation intent or plan. Perceptions: Patient denies any auditory or visual hallucinations. Though content/process: There is no evidence of any delusional thought content and thought process is linear and goal-directed. more future oriented. [place]. Memory and concentration: AOX3, grossly intact for the purposes of this session. Can spell "WORLD" backwards correctly. Judgment and insight: chronically poor, however has improved with guarded prognosis Impression: Major depressive disorder, recurrent, severe without psychotic features PTSD Borderline personality disorder Plan: -Continue with discharge today as patient has improved and stabilized psychiatrically and is not currently an imminent threat to herself and/or others. Patient will remain at chronically elevated risk for harm to self and/or others due to her impulsivity and history of suicidal thoughts and behaviors. -Continue medications: Abilify 7.5 mg daily for mood stabilization, BuSpar 15 mg 3 times a day for anxiety, Vistaril 50 mg 4 times a day for anxiety, Minipress 2 mg daily at bedtime for nightmares, Zoloft 100 mg daily for mood/anxiety. Continue with Sinequan 100 mg daily at bedtime for insomnia, Benadryl 50 mg daily at bedtime when necessary for insomnia. -Patient was counseled on the need for medication compliance and appropriate follow-up at mental health and also primary care for medical issues. Patient verbalized understanding and agreed. -Social work to arrange for and conduct family meeting to ensure safety upon discharge and answer any questions/concerns. Social work also to arrange for patients follow up appointments with [facility] for psychiatric care along with follow up with primary care provider. Patient will need to enroll in individual therapy and groups with [facility] to work on her impulsive tendencies and chronic suicidal thoughts and behaviors. -Patient counseled on abstaining from recreational drugs and marijuana and alcohol. Was informed/educated on the adverse effects on their physical and mental health. Patient verbally agreed and understood. -Patient was instructed to return to the hospital or seek immediate medical care if their psychiatric or medical symptoms do worsen or reoccur. Allergies Allergy/AdvReac Type Severity Reaction Status Date / Time bee pollen Allergy Severe Anaphylaxis Verified 06/25/20 22:13 haloperidol [From Haldol] Allergy Severe QUIT Verified 06/25/20 22:13 BREATHING haloperidol lactate Allergy Severe QUIT Verified 06/25/20 22:13 [From Haldol] BREATHING latex Allergy Severe RASH-THROAT Verified 06/25/20 22:13 CLOSES tramadol Allergy Severe Nausea & Verified 06/25/20 22:13 Vomiting murrieta Allergy Anaphylaxis Verified 06/25/20 22:13 coconut Allergy Anaphylaxis Verified 06/25/20 22:13 pineapple Allergy Anaphylaxis Verified 06/25/20 22:13 prednisone Allergy THROAT Verified 06/25/20 22:13 SWELLS spider venom Allergy Swelling Verified 06/25/20 22:13 Sulfa (Sulfonamide Allergy THROAT Verified 06/25/20 22:13 Antibiotics) SWELLS venom-wasp Allergy Swelling Verified 06/25/20 22:13 venom-wasp protein Allergy Swelling Verified 06/25/20 22:13 promethazine HCl AdvReac Severe Nausea & Verified 06/25/20 22:13 [From Phenergan] Vomiting amoxicillin AdvReac Nausea & Verified 06/25/20 22:13 Vomiting ANTS Allergy Mild Anaphylaxis Uncoded 06/25/20 22:13 Laboratory Results WBC 7.2 k/uL (3.8-10.6) 07/01/20 09:50 RBC 4.77 m/uL (3.80-5.40) 07/01/20 09:50 Hgb 14.0 gm/dL (11.4-16.0) 07/01/20 09:50 Hct 41.3 % (34.0-46.0) 07/01/20 09:50 MCV 86.6 fL (80.0-100.0) 07/01/20 09:50 MCH 29.5 pg (25.0-35.0) 07/01/20 09:50 MCHC 34.0 g/dL (31.0-37.0) 07/01/20 09:50 RDW 13.2 % (11.5-15.5) 07/01/20 09:50 Plt Count 267 k/uL (150-450) 07/01/20 09:50 MPV 7.6 07/01/20 09:50 Neutrophils % 47 % 07/01/20 09:50 Lymphocytes % 46 % 07/01/20 09:50 Monocytes % 4 % 07/01/20 09:50 Eosinophils % 1 % 07/01/20 09:50 Basophils % 0 % 07/01/20 09:50 Neutrophils # 3.3 k/uL (1.3-7.7) 07/01/20 09:50 Lymphocytes # 3.3 k/uL (1.0-4.8) 07/01/20 09:50 Monocytes # 0.3 k/uL (0-1.0) 07/01/20 09:50 Eosinophils # 0.1 k/uL (0-0.7) 07/01/20 09:50 Basophils # 0.0 k/uL (0-0.2) 07/01/20 09:50 Sodium 135 mmol/L (137-145) L 07/01/20 09:50 Potassium 4.8 mmol/L (3.5-5.1) 07/01/20 09:50 Chloride 105 mmol/L (98-107) 07/01/20 09:50 Carbon Dioxide 21 mmol/L (22-30) L 07/01/20 09:50 Anion Gap 9 mmol/L 07/01/20 09:50 BUN 16 mg/dL (7-17) 07/01/20 09:50 Creatinine 0.90 mg/dL (0.52-1.04) 07/01/20 09:50 Est GFR (CKD-EPI)AfAm >90 (>60 ml/min/1.73 sqM) 07/01/20 09:50 Est GFR (CKD-EPI)NonAf 88 (>60 ml/min/1.73 sqM) 07/01/20 09:50 Glucose 159 mg/dL (74-99) H 07/01/20 09:50 POC Glucose (mg/dL) 117 mg/dL (75-99) H 07/01/20 07:54 POC Glu [employer] JACINTO Melissa Valdez 07/01/20 07:[address] Glu mg/dL 169 06/26/20 16:43 Hemoglobin A1c 7.5 % (4.0-6.0) H 06/26/20 16:43 Calcium 10.9 mg/dL (8.4-10.2) H 07/01/20 09:50 HCG, Qual Not Detected 06/26/20 16:43 Urine Color Colorless 06/25/20 16:42 Urine Appearance Clear (Clear) 06/25/20 16:42 Urine pH 6.0 (5.0-8.0) 06/25/20 16:42 Ur Specific [place] 1.003 (1.001-1.035) 06/25/20 16:42 Urine Protein Negative (Negative) 06/25/20 16:42 Urine Glucose (UA) 3+ (Negative) H 06/25/20 16:42 Urine Ketones Negative (Negative) 06/25/20 16:42 Urine Blood Negative (Negative) 06/25/20 16:42 Urine Nitrite Negative (Negative) 06/25/20 16:42 Urine Bilirubin Negative (Negative) 06/25/20 16:42 Urine Urobilinogen <2.0 mg/dL (<2.0) 06/25/20 16:42 Ur Leukocyte Esterase Negative (Negative) 06/25/20 16:42 Urine HCG, Qual Not Detected (Not Detectd) 06/25/20 16:42 Urine Opiates Screen Not Detected (NotDetected) 06/25/20 20:39 Ur Oxycodone Screen Not Detected (NotDetected) 06/25/20 20:39 Urine Methadone Screen Not Detected (NotDetected) 06/25/20 20:39 Ur Propoxyphene Screen Not Detected (NotDetected) 06/25/20 20:39 Ur Barbiturates Screen Not Detected (NotDetected) 06/25/20 20:39 U Tricyclic Antidepress Detected (NotDetected) H 06/25/20 20:39 Ur Phencyclidine Scrn Not Detected (NotDetected) 06/25/20 20:39 Ur Amphetamines Screen Not Detected (NotDetected) 06/25/20 20:39 U Methamphetamines Scrn Not Detected (NotDetected) 06/25/20 20:39 U Benzodiazepines Scrn Not Detected (NotDetected) 06/25/20 20:39 Urine Cocaine Screen Not Detected (NotDetected) 06/25/20 20:39 U Marijuana (THC) Screen Not Detected (NotDetected) 06/25/20 20:39 Coronavirus (PCR) Not Detected (Not Detectd) 06/25/20 20:38 Vital Signs Temp 96.5 F L 07/01/20 09:35 Pulse 104 H 07/01/20 09:35 Resp 20 07/01/20 09:35 BP 118/55 07/01/20 09:35 Pulse Ox 97 07/01/20 09:35 Patient Condition at Discharge: Stable Plan - Discharge Summary Discharge Rx Participant: No New Discharge Prescriptions: New diphenhydrAMINE [Benadryl] 50 mg PO HS PRN 30 Days cap PRN Reason: Insomnia busPIRone HCL [Buspar] 15 mg PO TID 30 Days tablet SUMAtriptan succinate [Imitrex] 50 mg PO DAILY PRN tab PRN Reason: Migraine Headache Propranolol [Inderal] 20 mg PO TID 30 Days tab Atorvastatin [Lipitor] 40 mg PO HS 30 Days tab Prazosin [Minipress] 2 mg PO HS 30 Days cap Ibuprofen [Motrin] 800 mg PO TID PRN tab PRN Reason: Pain INSULIN ASPART (NovoLOG) [NovoLOG (formulary)] 0 unit SQ ACHS vial Acetaminophen Tab [Tylenol] 500 mg PO Q6HR PRN tab PRN Reason: Pain Ondansetron Odt [Zofran ODT] 4 mg PO Q8HR PRN 14 Days tab PRN Reason: Nausea ARIPiprazole [Abilify] 7.5 mg PO DAILY 30 Days tab metFORMIN HCL [Glucophage] 500 mg PO BID-W/MEALS 30 Days tab Nicotine 14Mg/24Hr Patch [Habitrol] 1 patch TRANSDERM DAILY 14 Days patch Doxepin [SINEquan] 100 mg PO HS 30 Days capsule Albuterol Inhaler [Ventolin Hfa Inhaler] 2 puff INHALATION RT-Q4H PRN puff PRN Reason: Shortness Of Breath hydrOXYzine pamoate [Vistaril] 50 mg PO QID PRN 30 Days cap PRN Reason: Anxiety Sertraline [Zoloft] 100 mg PO DAILY 30 Days tab Continue EPINEPHrine [Epipen 2-Mike] 0.3 mg IM ONCE PRN PRN Reason: Anaphylaxis tiZANidine [Zanaflex] 4 mg PO BID PRN PRN Reason: Muscle Spasm Omeprazole [PriLOSEC] 40 mg PO HS Topiramate [Topamax] 100 mg PO HS 30 Days tab Discontinued OLANZapine [ZyPREXA] 7.5 mg PO HS 30 Days tablet PARoxetine [Paxil] 10 mg PO DAILY Prazosin HCl 2 mg PO HS hydrOXYzine pamoate [Vistaril] 50 mg PO QID PRN PRN Reason: Anxiety Doxepin HCl 75 mg PO HS Ondansetron Odt [Zofran Odt] 4 mg PO Q8HR PRN #10 tab PRN Reason: Nausea Rimegepant Sulfate [Nurtec Odt] 75 mg PO TID PRN PRN Reason: Migraine Headache Ibuprofen [Motrin] 600 mg PO Q6HR PRN PRN Reason: Pain Discharge Medication List EPINEPHrine [Epipen 2-Mike] 0.3 mg IM ONCE PRN 10/16/18 [History] tiZANidine [Zanaflex] 4 mg PO BID PRN 05/08/19 [History] Omeprazole [PriLOSEC] 40 mg PO HS 03/04/20 [History] ARIPiprazole [Abilify] 7.5 mg PO DAILY 30 Days tab 07/01/20 [Rx] Acetaminophen Tab [Tylenol] 500 mg PO Q6HR PRN tab 07/01/20 [Rx] Albuterol Inhaler [Ventolin Hfa Inhaler] 2 puff INHALATION RT-Q4H PRN puff 07/01/20 [Rx] Atorvastatin [Lipitor] 40 mg PO HS 30 Days tab 07/01/20 [Rx] Doxepin [SINEquan] 100 mg PO HS 30 Days capsule 07/01/20 [Rx] INSULIN ASPART (NovoLOG) [NovoLOG (formulary)] 0 unit SQ ACHS vial 07/01/20 [Rx] Ibuprofen [Motrin] 800 mg PO TID PRN tab 07/01/20 [Rx] Nicotine 14Mg/24Hr Patch [Habitrol] 1 patch TRANSDERM DAILY 14 Days patch 07/01/20 [Rx] Ondansetron Odt [Zofran ODT] 4 mg PO Q8HR PRN 14 Days tab 07/01/20 [Rx] Prazosin [Minipress] 2 mg PO HS 30 Days cap 07/01/20 [Rx] Propranolol [Inderal] 20 mg PO TID 30 Days tab 07/01/20 [Rx] SUMAtriptan succinate [Imitrex] 50 mg PO DAILY PRN tab 07/01/20 [Rx] Sertraline [Zoloft] 100 mg PO DAILY 30 Days tab 07/01/20 [Rx] Topiramate [Topamax] 100 mg PO HS 30 Days tab 07/01/20 [Rx] busPIRone HCL [Buspar] 15 mg PO TID 30 Days tablet 07/01/20 [Rx] diphenhydrAMINE [Benadryl] 50 mg PO HS PRN 30 Days cap 07/01/20 [Rx] hydrOXYzine pamoate [Vistaril] 50 mg PO QID PRN 30 Days cap 07/01/20 [Rx] metFORMIN HCL [Glucophage] 500 mg PO BID-W/MEALS 30 Days tab 07/01/20 [Rx] Follow up Appointment(s)/Referral(s): [facility] [Outside] - 07/03/20 11:30 am (Rin Jesus 07/03/2020 @ 11:30 AM at [facility] Caseholder: Karyn Fernandes 07/04/2020 @ 11 AM by Phone) Isi Carolina MD [Primary Care Provider] - 1-2 days Patient Instructions/Handouts: Concussion (ED) Activity/Diet/Wound Care/Special Instructions: Activity and diet as tolerated. Avoid the use of street drugs and alcohol. Take all medications as prescribed. When you are in need of refills on your medications please contact your medical provider and/or outpatient psychiatrist to have this done. Please go to scheduled outpatient appointment for aftercare treatment. If symptoms return or become worse, call the crisis line at [phone] and/or go to the nearest emergency room for evaluation. Discharge Disposition: HOME SELF-CARE
== END 2020-07-01 12:44 | disposition home or self-care (01) | DRG 885 ==
LOC: EC 16:13 → 3MHU 21:38
PROVIDERS: ADMIT Psychiatry & Neurology Psychiatry; ATTEND Psychiatry & Neurology Psychiatry
DX: F33.3 Major depressive disorder, recurrent, severe with psychotic symptoms (principal); S06.0X9A Concussion with loss of consciousness of unspecified duration, initial encounter; R45.851 Suicidal ideations; E11.9 Type 2 diabetes mellitus without complications; F60.3 Borderline personality disorder; E66.01 Morbid (severe) obesity due to excess calories; Z20.822 Contact with and (suspected) exposure to COVID-19; F43.10 Post-traumatic stress disorder, unspecified; G43.909 Migraine, unspecified, not intractable, without status migrainosus; M54.5 Low back pain; M25.561 Pain in right knee; G47.00 Insomnia, unspecified; K21.9 Gastro-esophageal reflux disease without esophagitis; J45.909 Unspecified asthma, uncomplicated; M19.90 Unspecified osteoarthritis, unspecified site; N80.9 Endometriosis, unspecified; Z68.38 Body mass index [BMI] 38.0-38.9, adult; F17.290 Nicotine dependence, other tobacco product, uncomplicated; Z71.6 Tobacco abuse counseling; Z79.899 Other long term (current) drug therapy; Z78.1 Physical restraint status; Z91.5 Personal history of self-harm; Z87.42 Personal history of other diseases of the female genital tract; Z87.39 Personal history of other diseases of the musculoskeletal system and connective tissue; Z98.890 Other specified postprocedural states; Z91.030 Bee allergy status; Z91.038 Other insect allergy status; Z91.040 Latex allergy status; Z88.5 Allergy status to narcotic agent; Z88.0 Allergy status to penicillin; Z88.2 Allergy status to sulfonamides; Z88.8 Allergy status to other drugs, medicaments and biological substances; Z91.018 Allergy to other foods; W19.XXXA Unspecified fall, initial encounter; Z82.49 Family history of ischemic heart disease and other diseases of the circulatory system; Z81.1 Family history of alcohol abuse and dependence; Z81.4 Family history of other substance abuse and dependence; Z82.69 Family history of other diseases of the musculoskeletal system and connective tissue; Z81.8 Family history of other mental and behavioral disorders; Z71.3 Dietary counseling and surveillance; R45.87 Impulsiveness
CPT/HCPCS: 70450; 72100; 72125; 80048; 80306; 81003; 81025; 82075; 83036; 84703; 85025; 87635; 93005; 96372; 99285

== ENCOUNTER 2020-07-09 14:57 | Emergency (ER) | payer OTHER ==
[2020-07-09 17:58] VITALS: BP 155/100; PULSE 98; RESP 20; TEMP 98.3
--- NOTE | 2020-07-09 17:59 | ED ---
General Adult HPI - General Stated complaint: Fall,RT side pain - History of Present Illness Initial comments: Patient was seen as a medical screening in triage. Medical screening as follows: 29-year-old female presents to the emergency room for a chief complaint of fall. Patient states that about 3 hours ago her dog knocked her over. Patient did not hit her head. No loss of consciousness. Patient's main complaint is right knee, right wrist pain and right ankle pain. Patient states her whole right side is sore but those are several hurt the most. Patient denies any back or neck pain. Denies chest or abdominal pain. Patient has no other complaints at this time including shortness of breath, chest pain, abdominal pain, nausea or vomiting, headache, or visual changes. Denies chance of . I did see patient as her provider in the emergency room. HPI is as documented above. - Related Data Home Medications Medication Instructions Recorded Confirmed EPINEPHrine [Epipen 2-Mike] 0.3 mg IM ONCE PRN 10/16/18 06/25/20 tiZANidine [Zanaflex] 4 mg PO BID PRN 05/08/19 06/25/20 Omeprazole [PriLOSEC] 40 mg PO HS 03/04/20 06/25/20 Previous Rx's Medication Instructions Recorded ARIPiprazole [Abilify] 7.5 mg PO DAILY 30 Days tab 07/01/20 Acetaminophen Tab [Tylenol] 500 mg PO Q6HR PRN tab 07/01/20 Albuterol Inhaler [Ventolin Hfa 2 puff INHALATION RT-Q4H PRN puff 07/01/20 Inhaler] Atorvastatin [Lipitor] 40 mg PO HS 30 Days tab 07/01/20 Doxepin [SINEquan] 100 mg PO HS 30 Days capsule 07/01/20 INSULIN ASPART (NovoLOG) [NovoLOG 0 unit SQ ACHS vial 07/01/20 (formulary)] Ibuprofen [Motrin] 800 mg PO TID PRN tab 07/01/20 Nicotine 14Mg/24Hr Patch [Habitrol] 1 patch TRANSDERM DAILY 14 Days 07/01/20 patch Ondansetron Odt [Zofran ODT] 4 mg PO Q8HR PRN 14 Days tab 07/01/20 Prazosin [Minipress] 2 mg PO HS 30 Days cap 07/01/20 Propranolol [Inderal] 20 mg PO TID 30 Days tab 07/01/20 SUMAtriptan succinate [Imitrex] 50 mg PO DAILY PRN tab 07/01/20 Sertraline [Zoloft] 100 mg PO DAILY 30 Days tab 07/01/20 Topiramate [Topamax] 100 mg PO HS 30 Days tab 07/01/20 busPIRone HCL [Buspar] 15 mg PO TID 30 Days tablet 07/01/20 diphenhydrAMINE [Benadryl] 50 mg PO HS PRN 30 Days cap 07/01/20 hydrOXYzine pamoate [Vistaril] 50 mg PO QID PRN 30 Days cap 07/01/20 metFORMIN HCL [Glucophage] 500 mg PO BID-W/MEALS 30 Days tab 07/01/20 Allergies Allergy/AdvReac Type Severity Reaction Status Date / Time bee pollen Allergy Severe Anaphylaxis Verified 07/09/20 17:58 haloperidol [From Haldol] Allergy Severe QUIT Verified 07/09/20 17:58 BREATHING haloperidol lactate Allergy Severe QUIT Verified 07/09/20 17:58 [From Haldol] BREATHING latex Allergy Severe RASH-THROAT Verified 07/09/20 17:58 CLOSES tramadol Allergy Severe Nausea & Verified 07/09/20 17:58 Vomiting murrieta Allergy Anaphylaxis Verified 07/09/20 17:58 coconut Allergy Anaphylaxis Verified 07/09/20 17:58 pineapple Allergy Anaphylaxis Verified 07/09/20 17:58 prednisone Allergy THROAT Verified 07/09/20 17:58 SWELLS spider venom Allergy Swelling Verified 07/09/20 17:58 Sulfa (Sulfonamide Allergy THROAT Verified 07/09/20 17:58 Antibiotics) SWELLS venom-wasp Allergy Swelling Verified 07/09/20 17:58 venom-wasp protein Allergy Swelling Verified 07/09/20 17:58 promethazine HCl AdvReac Severe Nausea & Verified 07/09/20 17:58 [From Phenergan] Vomiting amoxicillin AdvReac Nausea & Verified 07/09/20 17:58 Vomiting ANTS Allergy Mild Anaphylaxis Uncoded 07/09/20 17:58 Review of Systems ROS Statement: Those systems with pertinent positive or pertinent negative responses have been documented in the HPI. ROS Other: All systems not noted in ROS Statement are negative. Past Medical History Past Medical History: Asthma, Diabetes Mellitus, GERD/Reflux Additional Past Medical History / Comment(s): migraines, degenerative disk disease, endometriosis, lupus, pancreatitis History of Any Multi-Drug Resistant Organisms: None Reported Past Surgical History: Orthopedic Surgery Additional Past Surgical History / Comment(s): laparoscopc surgery for endometriosis, cyst removed from left foot, EGD Past Anesthesia/Blood Transfusion Reactions: Previous Problems w/ Anesthesia Additional Past Anesthesia/Blood Transfusion Reaction / Comment(s): hard to wake up for 48-72 hours after laparoscopic surgery-was in hosp. for 3 days Past Psychological History: Anxiety, Depression, PTSD Smoking Status: Current every day smoker, Vaper Past Alcohol Use History: Occasional Additional Past Alcohol Use History / Comment(s): pt states that she occasionally has a "glass or two" of vodka that she mixes with Mountain Dew. Past Drug Use History: None Reported Additional Drug Use History / Comment(s): pt states that "I hit the vape constantly through the day." pt reports that she has a 100 mg vape pen that she refills 6 times per day. - Past Family History Mother Family Medical History: No Reported History Additional Family Medical History / Comment(s): hx migraines Father Family Medical History: Coronary Artery Disease (CAD), Hypertension Additional Family Medical History / Comment(s): ddd, alcoholism & drug use General Exam - General Exam Comments Initial Comments: Right upper extremity: patient has tenderness along the ulnar aspect of the right wrist. No tenderness in the hand. No snuffbox tenderness. No elbow tenderness. Patient has full range of motion of the shoulder elbow in all digits. Range of motion of the right wrist is limited due to pain. Radial pulse 2+. Capillary refill less than 2 seconds. Right lower extremity. Patient is able to flex and extend the right knee however this is limited secondary to pain. She does have tenderness noted to the lateral malleolus as well. No significant tenderness in the foot. Capillary refill. DP pulses 2+. No external signs of trauma noted to the right lower extremity. Sensation intact. General appearance: alert, in no apparent distress Head exam: Present: atraumatic, normocephalic, normal inspection Eye exam: Present: normal appearance, PERRL, EOMI. Absent: scleral icterus, conjunctival injection, periorbital swelling ENT exam: Present: normal exam, mucous membranes moist Neck exam: Present: normal inspection. Absent: tenderness, meningismus, lymphadenopathy Respiratory exam: Present: normal lung sounds bilaterally. Absent: respiratory distress, wheezes, rales, rhonchi, stridor Cardiovascular Exam: Present: regular rate, normal rhythm, normal heart sounds. Absent: systolic murmur, diastolic murmur, rubs, gallop, clicks GI/Abdominal exam: Present: soft, normal bowel sounds. Absent: distended, tenderness, guarding, rebound, rigid Course Vital Signs 07/09/20 17:55 Temperature 98.3 F Pulse Rate 98 Respiratory 20 Rate Blood Pressure 155/100 O2 Sat by Pulse 99 Oximetry Medical Decision Making - Medical Decision Making Vitals are stable. HPI and physical exam as documented. There are no external signs of trauma on patient's right upper or lower extremity. She has no abdominal tenderness no back tenderness. No chest pain. X-ray reports are reviewed. X-ray of the right knee, ankle foot and wrist are negative. However there is some soft tissue swelling on the right ankle. Patient will be given an air cast on the ankle as well as her right knee will be wrapped with an Desmond wrap. She will follow up with primary care. She will return here for any worsening symptoms. Disposition Clinical Impression: Knee pain, Ankle pain, Wrist pain, Fall Disposition: HOME SELF-CARE Condition: Good Instructions (If sedation given, give patient instructions): R.I.C.E. Treatment (ED) Additional Instructions: Take Motrin and Tylenol for pain. Follow-up with primary care in 1-2 days. Return to the emergency room for any worsening symptoms. Is patient prescribed a controlled substance at d/c from ED?: No Referrals: Isi Carolina MD [Primary Care Provider] - 1-2 days Time of Disposition: 18:58
--- NOTE | 2020-07-09 18:33 | XR ---
EXAMINATION TYPE: XR wrist complete RT DATE OF EXAM: 07/09/2020 COMPARISON: NONE HISTORY: Pain TECHNIQUE: 4 views FINDINGS: There is no sign of fracture nor dislocation. Joint spaces are normal. Scaphoid appears nor mal. IMPRESSION: Normal right wrist.
--- NOTE | 2020-07-09 18:33 | XR ---
EXAMINATION TYPE: XR foot complete RT DATE OF EXAM: 07/09/2020 COMPARISON: NONE HISTORY: Pain TECHNIQUE: 3 views FINDINGS: Metatarsals are intact. I see no fracture nor dislocation. Toes appear intact. Joint spaces are normal. IMPRESSION: Negative right foot exam.
--- NOTE | 2020-07-09 18:34 | XR ---
EXAMINATION TYPE: XR ankle complete RT DATE OF EXAM: 07/09/2020 COMPARISON: NONE HISTORY: Pain TECHNIQUE: 3 views FINDINGS: Ankle mortise is anatomic. I see no fracture nor dislocation. There is mild soft tissue swe lling over the lateral malleolus. IMPRESSION: Mild soft tissue swelling. No fracture.
--- NOTE | 2020-07-09 18:35 | XR ---
EXAMINATION TYPE: XR knee complete RT DATE OF EXAM: 07/09/2020 COMPARISON: NONE HISTORY: Pain TECHNIQUE: 3 views FINDINGS: I see no fracture nor dislocation. Joint spaces are normal. There is no sign of knee joint effusion. IMPRESSION: Negative right knee exam. No fracture.
== END 2020-07-09 19:31 | disposition home or self-care (01) ==
LOC: EC 14:57
DX: M25.571 Pain in right ankle and joints of right foot (principal); M25.531 Pain in right wrist; M25.561 Pain in right knee; E11.9 Type 2 diabetes mellitus without complications; F32.9 Major depressive disorder, single episode, unspecified; F41.9 Anxiety disorder, unspecified; J45.909 Unspecified asthma, uncomplicated; K21.9 Gastro-esophageal reflux disease without esophagitis; F17.200 Nicotine dependence, unspecified, uncomplicated; W19.XXXA Unspecified fall, initial encounter; Z79.1 Long term (current) use of non-steroidal anti-inflammatories (NSAID); Z79.4 Long term (current) use of insulin; Z88.0 Allergy status to penicillin
CPT/HCPCS: 99283

== ENCOUNTER 2020-07-18 17:37 | Emergency (ER) | payer OTHER ==
[2020-07-18] MEDS ORDERED: ACET/COD 300 MG/30 MG STARTER PACK 6 TAB BTL PO STA (19:13)
[2020-07-18] MEDS ORDERED: KETOROLAC 15 MG/ML 1 ML VIAL IM STA (19:13)
[2020-07-18] MEDS ORDERED: MORPHINE SULFATE 4 MG/ML SYRINGE IM STA ×2 (19:13→20:55)
--- NOTE | 2020-07-18 20:06 | ED ---
General Adult HPI - General Chief complaint: Back Pain/Injury Stated complaint: Back Pain/headache Time Seen by Provider: 07/18/20 18:58 Source: patient Mode of arrival: wheelchair Limitations: no limitations - History of Present Illness Initial comments: 29-year-old female patient presents to the emergency department today for evaluation of increased low back pain with radiation down the left leg. Patient states that 2 days ago she had a fall down stairs and fell striking her back. States she was seen and evaluated at [facility] underwent x-rays and was told she had back fractures was discharged. Patient was given a couple days of Murdo but the pain medication as worn out. States she is having a lot of pain and Tylenol Motrin are not helping. Denies any new symptoms. Denies any saddle anesthesia or loss of bowel or bladder control. She is also reporting migraine headache, does have a history of migraine states her symptoms are consistent with her usual migraine pattern. She denies any blurred or double vision. Denies numbness, tingling, weakness to her extremities. Patient denies any recent rash, fever, chills, cough, shortness of breath, chest pain, abdominal pain, nausea, vomiting, diarrhea, constipation, hematuria, dysuria, urinary urgency, urinary frequency, or any other complaints. - Related Data Home Medications Medication Instructions Recorded Confirmed EPINEPHrine [Epipen 2-Mike] 0.3 mg IM ONCE PRN 10/16/18 06/25/20 tiZANidine [Zanaflex] 4 mg PO BID PRN 05/08/19 06/25/20 Omeprazole [PriLOSEC] 40 mg PO HS 03/04/20 06/25/20 Previous Rx's Medication Instructions Recorded ARIPiprazole [Abilify] 7.5 mg PO DAILY 30 Days tab 07/01/20 Acetaminophen Tab [Tylenol] 500 mg PO Q6HR PRN tab 07/01/20 Albuterol Inhaler [Ventolin Hfa 2 puff INHALATION RT-Q4H PRN puff 07/01/20 Inhaler] Atorvastatin [Lipitor] 40 mg PO HS 30 Days tab 07/01/20 Doxepin [SINEquan] 100 mg PO HS 30 Days capsule 07/01/20 INSULIN ASPART (NovoLOG) [NovoLOG 0 unit SQ ACHS vial 07/01/20 (formulary)] Ibuprofen [Motrin] 800 mg PO TID PRN tab 07/01/20 Nicotine 14Mg/24Hr Patch [Habitrol] 1 patch TRANSDERM DAILY 14 Days 07/01/20 patch Ondansetron Odt [Zofran ODT] 4 mg PO Q8HR PRN 14 Days tab 07/01/20 Prazosin [Minipress] 2 mg PO HS 30 Days cap 07/01/20 Propranolol [Inderal] 20 mg PO TID 30 Days tab 07/01/20 SUMAtriptan succinate [Imitrex] 50 mg PO DAILY PRN tab 07/01/20 Sertraline [Zoloft] 100 mg PO DAILY 30 Days tab 07/01/20 Topiramate [Topamax] 100 mg PO HS 30 Days tab 07/01/20 busPIRone HCL [Buspar] 15 mg PO TID 30 Days tablet 07/01/20 diphenhydrAMINE [Benadryl] 50 mg PO HS PRN 30 Days cap 07/01/20 hydrOXYzine pamoate [Vistaril] 50 mg PO QID PRN 30 Days cap 07/01/20 metFORMIN HCL [Glucophage] 500 mg PO BID-W/MEALS 30 Days tab 07/01/20 Allergies Allergy/AdvReac Type Severity Reaction Status Date / Time bee pollen Allergy Severe Anaphylaxis Verified 07/09/20 17:58 haloperidol [From Haldol] Allergy Severe QUIT Verified 07/09/20 17:58 BREATHING haloperidol lactate Allergy Severe QUIT Verified 07/09/20 17:58 [From Haldol] BREATHING latex Allergy Severe RASH-THROAT Verified 07/09/20 17:58 CLOSES tramadol Allergy Severe Nausea & Verified 07/09/20 17:58 Vomiting murrieta Allergy Anaphylaxis Verified 07/09/20 17:58 coconut Allergy Anaphylaxis Verified 07/09/20 17:58 pineapple Allergy Anaphylaxis Verified 07/09/20 17:58 prednisone Allergy THROAT Verified 07/09/20 17:58 SWELLS spider venom Allergy Swelling Verified 07/09/20 17:58 Sulfa (Sulfonamide Allergy THROAT Verified 07/09/20 17:58 Antibiotics) SWELLS venom-wasp Allergy Swelling Verified 07/09/20 17:58 venom-wasp protein Allergy Swelling Verified 07/09/20 17:58 promethazine HCl AdvReac Severe Nausea & Verified 07/09/20 17:58 [From Phenergan] Vomiting amoxicillin AdvReac Nausea & Verified 07/09/20 17:58 Vomiting ANTS Allergy Mild Anaphylaxis Uncoded 07/09/20 17:58 Review of Systems ROS Statement: Those systems with pertinent positive or pertinent negative responses have been documented in the HPI. ROS Other: All systems not noted in ROS Statement are negative. Past Medical History Past Medical History: Asthma, Diabetes Mellitus, GERD/Reflux Additional Past Medical History / Comment(s): migraines, degenerative disk disease, endometriosis, lupus, pancreatitis History of Any Multi-Drug Resistant Organisms: None Reported Past Surgical History: Orthopedic Surgery Additional Past Surgical History / Comment(s): laparoscopc surgery for endometriosis, cyst removed from left foot, EGD Past Anesthesia/Blood Transfusion Reactions: Previous Problems w/ Anesthesia Additional Past Anesthesia/Blood Transfusion Reaction / Comment(s): hard to wake up for 48-72 hours after laparoscopic surgery-was in hosp. for 3 days Past Psychological History: Anxiety, Depression, PTSD Smoking Status: Current every day smoker, Vaper Past Alcohol Use History: Occasional Past Drug Use History: None Reported - Past Family History Mother Family Medical History: No Reported History Additional Family Medical History / Comment(s): hx migraines Father Family Medical History: Coronary Artery Disease (CAD), Hypertension Additional Family Medical History / Comment(s): ddd, alcoholism & drug use General Exam Limitations: no limitations General appearance: alert, in no apparent distress, other (This well-developed, well-nourished adult female patient in no acute distress. Vital signs upon presentation temperature 98.2F, pulse 128, respirations 18, blood pressure 131/95, pulse ox 97% on room air.) Eye exam: Present: normal appearance, PERRL, EOMI. Absent: scleral icterus, conjunctival injection, periorbital swelling ENT exam: Present: normal exam, normal oropharynx, mucous membranes moist Respiratory exam: Present: normal lung sounds bilaterally. Absent: respiratory distress, wheezes, rales, rhonchi, stridor Cardiovascular Exam: Present: regular rate, normal rhythm, normal heart sounds. Absent: systolic murmur, diastolic murmur, rubs, gallop, clicks GI/Abdominal exam: Present: soft, normal bowel sounds. Absent: distended, tenderness, guarding, rebound, rigid Back exam: Present: normal inspection, vertebral tenderness (Lumbar) Neurological exam: Present: alert, oriented X3, CN II-XII intact Expanded Speech: Present: fluid speech Cranial nerves: EOM's Intact: Normal, Nystagmus: Normal Motor strength exam: RUE: 5, LUE: 5, RLE: 5, LLE: 5 Psychiatric exam: Present: normal affect, normal mood Skin exam: Present: warm, dry, intact, normal color. Absent: rash Course Vital Signs 07/18/20 07/18/20 17:39 21:23 Temperature 98.0 F 97.9 F Pulse Rate 128 H 90 Respiratory 18 16 Rate Blood Pressure 131/95 130/89 O2 Sat by Pulse 97 98 Oximetry Medical Decision Making - Medical Decision Making 29-year-old female patient presents to the emergency department today for evaluation of increased back pain. Physical examination did reveal lower lumbar tenderness. She is neurologically intact and neurovascularly intact. Repeat x- ray to the low back, no evidence for fracture at this time. She was given pain medicine here. To be discharged follow-up with orthopedics for further evaluation. Return parameters were discussed in detail. She verbalizes understanding and agrees with this plan. Case discussed with my attending Dr. Peña. - Radiology Data Radiology results: report reviewed, image reviewed 4 views of the lumbosacral spine are obtained. Report was reviewed in its entirety. Impression by Dr. David shows no significant osseous abnormality. Disposition Clinical Impression: Low back pain Disposition: HOME SELF-CARE Condition: Good Instructions (If sedation given, give patient instructions): Acute Low Back Pain (ED) Additional Instructions: Use starter pack for pain control. Follow-up with research quality assurance specialist for fur ther evaluation as soon as possible. Follow up through primary care physician for recheck in 1-2 days. Return to the emergency department for any new, worsening, or concerning symptoms Is patient prescribed a controlled substance at d/c from ED?: No Referrals: Roxana Barton MD [Primary Care Provider] - 1-2 days Ramón Oconnor MD [STAFF PHYSICIAN] - 1-2 days Time of Disposition: 20:56
--- NOTE | 2020-07-18 20:27 | XR ---
Result: History: Low back pain status post fall 2 days ago. Comparison: None available. Technique: 5 views of the lumbar spine. Findings: The bone mineralization is normal. Images of the lumbar spine demonstrate 5 lumbar-type vertebrae. There is no acute fracture or sublux ation. The vertebral body heights are preserved throughout the imaged lumbar spine. The vertebral e lements are in anatomic alignment. The disc heights are maintained. No definite pars defects seen. Impression: No significant osseous abnormality.
[2020-07-18 21:24] VITALS: BP 130/89; PULSE 90; RESP 16; TEMP 97.9
== END 2020-07-18 21:23 | disposition home or self-care (01) ==
LOC: EC 17:37
DX: M54.5 Low back pain (principal); F41.9 Anxiety disorder, unspecified; F32.9 Major depressive disorder, single episode, unspecified; F17.200 Nicotine dependence, unspecified, uncomplicated; J45.909 Unspecified asthma, uncomplicated; K21.9 Gastro-esophageal reflux disease without esophagitis; E11.9 Type 2 diabetes mellitus without complications; Z79.84 Long term (current) use of oral hypoglycemic drugs
CPT/HCPCS: 72110; 99284; 96372; J2270; J1885

== ENCOUNTER 2020-07-25 09:48 | Emergency (ER) | payer OTHER ==
[2020-07-25 09:54] VITALS: RESP 18; TEMP 97.9
[2020-07-25] MEDS ORDERED: SODIUM CHLORIDE 0.9% 1,000 ML IV STA (10:03)
[2020-07-25] MEDS ORDERED: ONDANSETRON 4 MG/2 ML VIAL IVP STA (10:33)
[2020-07-25] MEDS ORDERED: HYDROmorphone 0.5 MG/0.5 ML SYRINGE IVP STA ×2 (10:33→12:57)
[2020-07-25 10:56] LABS: Basophils % (A) 0 %; Eosinophils # (A) 0.2 k/uL (0-0.7); Eosinophils % (A) 3 %; HCT 42.2 % (34.0-46.0); HGB 14.6 gm/dL (11.4-16.0); Lymphocytes # (A) 2.8 k/uL (1.0-4.8); Lymphocytes % (A) 41 %; MCH 30.1 pg (25.0-35.0); MCHC 34.6 g/dL (31.0-37.0); MCV 87.1 fL (80.0-100.0); Mean Platelet Volume 7.8; Monocytes # (A) 0.3 k/uL (0-1.0); Monocytes % (A) 4 %; Neutrophils # (A) 3.4 k/uL (1.3-7.7); Neutrophils % (A) 50 %; Platelet Count 196 k/uL (150-450); RBC 4.85 m/uL (3.80-5.40); WBC 6.9 k/uL (3.8-10.6)
--- NOTE | 2020-07-25 10:59 | ED ---
Abdominal Pain HPI - General Chief Complaint: Abdominal Pain Stated Complaint: Abd pain Time Seen by Provider: 07/25/20 10:03 Source: patient, RN notes reviewed Mode of arrival: ambulatory Limitations: no limitations - History of Present Illness Initial Comments: This a 29-year-old female presents emergency Department chief complaint of upper abdominal pain. She states started a few days ago on the right side. Patient's associated nausea vomiting worsened when eating. Patient was seen by her PCP today who advised him come emergency department. Patient seen inPCPs office which was negative for acute abnormality. They're concerned about possible pancreatitis that she's had this in the past. Denies any alcohol use. Denies fevers chills chest pain dysuria hematuria diarrhea constipation - Related Data Home Medications Medication Instructions Recorded Confirmed EPINEPHrine [Epipen 2-Mike] 0.3 mg IM ONCE PRN 10/16/18 06/25/20 tiZANidine [Zanaflex] 4 mg PO BID PRN 05/08/19 06/25/20 Omeprazole [PriLOSEC] 40 mg PO HS 03/04/20 06/25/20 Previous Rx's Medication Instructions Recorded ARIPiprazole [Abilify] 7.5 mg PO DAILY 30 Days tab 07/01/20 Acetaminophen Tab [Tylenol] 500 mg PO Q6HR PRN tab 07/01/20 Albuterol Inhaler [Ventolin Hfa 2 puff INHALATION RT-Q4H PRN puff 07/01/20 Inhaler] Atorvastatin [Lipitor] 40 mg PO HS 30 Days tab 07/01/20 Doxepin [SINEquan] 100 mg PO HS 30 Days capsule 07/01/20 INSULIN ASPART (NovoLOG) [NovoLOG 0 unit SQ ACHS vial 07/01/20 (formulary)] Ibuprofen [Motrin] 800 mg PO TID PRN tab 07/01/20 Nicotine 14Mg/24Hr Patch [Habitrol] 1 patch TRANSDERM DAILY 14 Days 07/01/20 patch Ondansetron Odt [Zofran ODT] 4 mg PO Q8HR PRN 14 Days tab 07/01/20 Prazosin [Minipress] 2 mg PO HS 30 Days cap 07/01/20 Propranolol [Inderal] 20 mg PO TID 30 Days tab 07/01/20 SUMAtriptan succinate [Imitrex] 50 mg PO DAILY PRN tab 07/01/20 Sertraline [Zoloft] 100 mg PO DAILY 30 Days tab 07/01/20 Topiramate [Topamax] 100 mg PO HS 30 Days tab 07/01/20 busPIRone HCL [Buspar] 15 mg PO TID 30 Days tablet 07/01/20 diphenhydrAMINE [Benadryl] 50 mg PO HS PRN 30 Days cap 07/01/20 hydrOXYzine pamoate [Vistaril] 50 mg PO QID PRN 30 Days cap 07/01/20 metFORMIN HCL [Glucophage] 500 mg PO BID-W/MEALS 30 Days tab 07/01/20 Ondansetron Odt [Zofran Odt] 4 mg PO Q8HR PRN #10 tab 07/25/20 Allergies Allergy/AdvReac Type Severity Reaction Status Date / Time bee pollen Allergy Severe Anaphylaxis Verified 07/25/20 09:54 haloperidol [From Haldol] Allergy Severe QUIT Verified 07/25/20 09:54 BREATHING haloperidol lactate Allergy Severe QUIT Verified 07/25/20 09:54 [From Haldol] BREATHING latex Allergy Severe RASH-THROAT Verified 07/25/20 09:54 CLOSES tramadol Allergy Severe Nausea & Verified 07/25/20 09:54 Vomiting murrieta Allergy Anaphylaxis Verified 07/25/20 09:54 coconut Allergy Anaphylaxis Verified 07/25/20 09:54 pineapple Allergy Anaphylaxis Verified 07/25/20 09:54 prednisone Allergy THROAT Verified 07/25/20 09:54 SWELLS spider venom Allergy Swelling Verified 07/25/20 09:54 Sulfa (Sulfonamide Allergy THROAT Verified 07/25/20 09:54 Antibiotics) SWELLS venom-wasp Allergy Swelling Verified 07/25/20 09:54 venom-wasp protein Allergy Swelling Verified 07/25/20 09:54 promethazine HCl AdvReac Severe Nausea & Verified 07/25/20 09:54 [From Phenergan] Vomiting amoxicillin AdvReac Nausea & Verified 07/25/20 09:54 Vomiting ANTS Allergy Mild Anaphylaxis Uncoded 07/25/20 09:54 Review of Systems ROS Statement: Those systems with pertinent positive or pertinent negative responses have been documented in the HPI. ROS Other: All systems not noted in ROS Statement are negative. Past Medical History Past Medical History: Asthma, Diabetes Mellitus, GERD/Reflux Additional Past Medical History / Comment(s): migraines, degenerative disk disease, endometriosis, lupus, pancreatitis History of Any Multi-Drug Resistant Organisms: None Reported Past Surgical History: Orthopedic Surgery Additional Past Surgical History / Comment(s): laparoscopc surgery for endometriosis, cyst removed from left foot, EGD Past Anesthesia/Blood Transfusion Reactions: Previous Problems w/ Anesthesia Additional Past Anesthesia/Blood Transfusion Reaction / Comment(s): hard to wake up for 48-72 hours after laparoscopic surgery-was in hosp. for 3 days Past Psychological History: Anxiety, Depression, PTSD Smoking Status: Current every day smoker, Vaper Past Alcohol Use History: Occasional Past Drug Use History: None Reported - Past Family History Mother Family Medical History: No Reported History Additional Family Medical History / Comment(s): hx migraines Father Family Medical History: Coronary Artery Disease (CAD), Hypertension Additional Family Medical History / Comment(s): ddd, alcoholism & drug use General Exam Limitations: no limitations General appearance: alert, in no apparent distress Head exam: Present: atraumatic, normocephalic, normal inspection Eye exam: Present: normal appearance, PERRL, EOMI. Absent: scleral icterus, conjunctival injection, periorbital swelling ENT exam: Present: normal exam, normal oropharynx, mucous membranes moist Neck exam: Present: normal inspection. Absent: tenderness, meningismus, lymphadenopathy Respiratory exam: Present: normal lung sounds bilaterally. Absent: respiratory distress, wheezes, rales, rhonchi, stridor Cardiovascular Exam: Present: regular rate, normal rhythm, normal heart sounds. Absent: systolic murmur, diastolic murmur, rubs, gallop, clicks GI/Abdominal exam: Present: soft, tenderness (Mild right upper quadrant), normal bowel sounds. Absent: distended, guarding, rebound, rigid Back exam: Absent: CVA tenderness (R), CVA tenderness (L) Neurological exam: Present: alert Skin exam: Present: warm, dry, intact, normal color. Absent: rash Course Vital Signs 07/25/20 07/25/20 09:53 12:40 Temperature 97.9 F Pulse Rate 109 H 60 Respiratory 18 18 Rate Blood Pressure 119/86 116/82 O2 Sat by Pulse 98 96 Oximetry Medical Decision Making - Medical Decision Making 29-year-old presented for abdominal pain. Patient does have mild pancreatitis patient will be discharged with pain medication, nothing by mouth diet, clear liquid diet and follow-up return parameters were discussed. - Lab Data Result diagrams: 07/25/20 10:37 07/25/20 10:37 Lab Results 07/25/20 07/25/20 07/25/20 Range/Units 10:37 10:37 10:37 WBC 6.9 (3.8-10.6) k/uL RBC 4.85 (3.80-5.40) m/uL Hgb 14.6 (11.4-16.0) gm/dL Hct 42.2 (34.0-46.0) % MCV 87.1 (80.0-100.0) fL MCH 30.1 (25.0-35.0) pg MCHC 34.6 (31.0-37.0) g/dL RDW 14.0 (11.5-15.5) % Plt Count 196 (150-450) k/uL MPV 7.8 Neutrophils % 50 % Lymphocytes % 41 % Monocytes % 4 % Eosinophils % 3 % Basophils % 0 % Neutrophils # 3.4 (1.3-7.7) k/uL Lymphocytes # 2.8 (1.0-4.8) k/uL Monocytes # 0.3 (0-1.0) k/uL Eosinophils # 0.2 (0-0.7) k/uL Basophils # 0.0 (0-0.2) k/uL Sodium 141 (137-145) mmol/L Potassium 4.0 (3.5-5.1) mmol/L Chloride 105 (98-107) mmol/L Carbon Dioxide 23 (22-30) mmol/L Anion Gap 13 mmol/L BUN 10 (7-17) mg/dL Creatinine 1.05 H (0.52-1.04) mg/dL Est GFR (CKD-EPI)AfAm 84 (>60 ml/min/1.73 sqM) Est GFR (CKD-EPI)NonAf 72 (>60 ml/min/1.73 sqM) Glucose 181 H (74-99) mg/dL Plasma Lactic Acid Aurelio (0.7-2.0) mmol/L Calcium 10.9 H (8.4-10.2) mg/dL Total Bilirubin 0.6 (0.2-1.3) mg/dL AST 48 H (14-36) U/L ALT 45 H (4-34) U/L Alkaline Phosphatase 85 (38-126) U/L Total Protein 8.4 H (6.3-8.2) g/dL Albumin 4.9 (3.5-5.0) g/dL Amylase 43 (30-110) U/L Lipase 412 H (23-300) U/L Urine Color Yellow Urine Appearance Cloudy H (Clear) Urine pH 5.5 (5.0-8.0) Ur Specific [place] 1.026 (1.001-1.035) Urine Protein Trace H (Negative) Urine Glucose (UA) Negative (Negative) Urine Ketones Negative (Negative) Urine Blood Negative (Negative) Urine Nitrite Negative (Negative) Urine Bilirubin Negative (Negative) Urine Urobilinogen <2.0 (<2.0) mg/dL Ur Leukocyte Esterase Large H (Negative) Urine RBC 1 (0-5) /hpf Urine WBC 12 H (0-5) /hpf Ur Squamous Epith Cells 13 H (0-4) /hpf Urine Bacteria Moderate H (None) /hpf Urine Mucus Few H (None) /hpf 07/25/20 Range/Units 10:37 WBC (3.8-10.6) k/uL RBC (3.80-5.40) m/uL Hgb (11.4-16.0) gm/dL Hct (34.0-46.0) % MCV (80.0-100.0) fL MCH (25.0-35.0) pg MCHC (31.0-37.0) g/dL RDW (11.5-15.5) % Plt Count (150-450) k/uL MPV Neutrophils % % Lymphocytes % % Monocytes % % Eosinophils % % Basophils % % Neutrophils # (1.3-7.7) k/uL Lymphocytes # (1.0-4.8) k/uL Monocytes # (0-1.0) k/uL Eosinophils # (0-0.7) k/uL Basophils # (0-0.2) k/uL Sodium (137-145) mmol/L Potassium (3.5-5.1) mmol/L Chloride (98-107) mmol/L Carbon Dioxide (22-30) mmol/L Anion Gap mmol/L BUN (7-17) mg/dL Creatinine (0.52-1.04) mg/dL Est GFR (CKD-EPI)AfAm (>60 ml/min/1.73 sqM) Est GFR (CKD-EPI)NonAf (>60 ml/min/1.73 sqM) Glucose (74-99) mg/dL Plasma Lactic Acid Aurelio 1.6 (0.7-2.0) mmol/L Calcium (8.4-10.2) mg/dL Total Bilirubin (0.2-1.3) mg/dL AST (14-36) U/L ALT (4-34) U/L Alkaline Phosphatase (38-126) U/L Total Protein (6.3-8.2) g/dL Albumin (3.5-5.0) g/dL Amylase (30-110) U/L Lipase (23-300) U/L Urine Color Urine Appearance (Clear) Urine pH (5.0-8.0) Ur Specific [place] (1.001-1.035) Urine Protein (Negative) Urine Glucose (UA) (Negative) Urine Ketones (Negative) Urine Blood (Negative) Urine Nitrite (Negative) Urine Bilirubin (Negative) Urine Urobilinogen (<2.0) mg/dL Ur Leukocyte Esterase (Negative) Urine RBC (0-5) /hpf Urine WBC (0-5) /hpf Ur Squamous Epith Cells (0-4) /hpf Urine Bacteria (None) /hpf Urine Mucus (None) /hpf Disposition Clinical Impression: Abdominal pain, Pancreatitis Disposition: HOME SELF-CARE Condition: Stable Instructions (If sedation given, give patient instructions): Abdominal Pain (ED) Additional Instructions: Please return to the Emergency Department if symptoms worsen or any other concerns. Prescriptions: Ondansetron Odt [Zofran Odt] 4 mg PO Q8HR PRN #10 tab PRN Reason: Nausea Is patient prescribed a controlled substance at d/c from ED?: No Referrals: Roxana Barton MD [Primary Care Provider] - 1-2 days Time of Disposition: 12:58
[2020-07-25 11:26] LABS: Albumin 4.9 g/dL (3.5-5.0); Calcium 10.9 mg/dL (8.4-10.2); Total Bilirubin 0.6 mg/dL (0.2-1.3); Total Protein 8.4 g/dL (6.3-8.2)
[2020-07-25 11:38] LABS: Appearance,Urine Cloudy (Clear); Bacteria,Urine Moderate /hpf; Bilirubin,Urine Negative (Negative); Blood,Urine Negative (Negative); Color,Urine Yellow; Glucose,Urine (UA) Negative (Negative); Ketones,Urine Negative (Negative); Leukocyte Esterase,Urine Large (Negative); Mucus,Urine Few /hpf; Nitrite,Urine Negative (Negative); PH, Urine 5.5 (5.0-8.0); Protein,Urine Trace (Negative); RBC,Urine 1 /hpf (0-5); Specific Gravity,Urine 1.026 (1.001-1.035); Squamous Epithelial Cell,Urine 13 /hpf (0-4); Urobilinogen,Urine <2.0 mg/dL (<2.0); WBC,Urine 12 /hpf (0-5)
[2020-07-25] MEDS ORDERED: KETOROLAC 15 MG/ML 1 ML VIAL IVP STA (11:56)
[2020-07-25 12:40] VITALS: BP 116/82; PULSE 60
[2020-07-25] MEDS ORDERED: ACET/COD 300 MG/30 MG STARTER PACK 6 TAB BTL PO STA (12:57)
== END 2020-07-25 13:12 | disposition home or self-care (01) ==
LOC: EC 09:48
DX: K85.90 Acute pancreatitis without necrosis or infection, unspecified (principal); E11.9 Type 2 diabetes mellitus without complications; F17.200 Nicotine dependence, unspecified, uncomplicated; F32.9 Major depressive disorder, single episode, unspecified; F41.9 Anxiety disorder, unspecified; J45.909 Unspecified asthma, uncomplicated; K21.9 Gastro-esophageal reflux disease without esophagitis; Z79.1 Long term (current) use of non-steroidal anti-inflammatories (NSAID); Z79.4 Long term (current) use of insulin; Z88.0 Allergy status to penicillin
CPT/HCPCS: 36415; 80053; 82150; 83605; 83690; 85025; 81001; 87086; 99284; 96374; 96375; 96376; J2405; J1885; J1170; 81025

== ENCOUNTER 2020-07-28 19:13 | Emergency (ER) | payer OTHER ==
[2020-07-28 19:20] VITALS: RESP 16; TEMP 99.3
--- NOTE | 2020-07-28 19:35 | ED ---
Fall HPI - General Chief Complaint: Fall Stated Complaint: Fall Time Seen by Provider: 07/28/20 19:23 Source: patient, EMS Mode of arrival: EMS - History of Present Illness Initial Comments: 21-year-old female presents to the emergency department with a chief complaint of fall. Patient reports a mechanical fall where she tripped herself and fell down 3 stairs. Patient reports she fell directly on her back but denies any loss of consciousness. He did she does report a small head injury but denies any blood thinners. States most of her pain is located in her head but she also reports some pain in the thoracic or lumbar spine. She denies any numbness or tingling in the extremities. She denies any chest pain shortness of breath nausea vomiting. Denies saddle anesthesia urinary retention with overflow incontinence or bowel incontinence. - Related Data Home Medications Medication Instructions Recorded Confirmed EPINEPHrine [Epipen 2-Mike] 0.3 mg IM ONCE PRN 10/16/18 06/25/20 tiZANidine [Zanaflex] 4 mg PO BID PRN 05/08/19 06/25/20 Omeprazole [PriLOSEC] 40 mg PO HS 03/04/20 06/25/20 Previous Rx's Medication Instructions Recorded ARIPiprazole [Abilify] 7.5 mg PO DAILY 30 Days tab 07/01/20 Acetaminophen Tab [Tylenol] 500 mg PO Q6HR PRN tab 07/01/20 Albuterol Inhaler [Ventolin Hfa 2 puff INHALATION RT-Q4H PRN puff 07/01/20 Inhaler] Atorvastatin [Lipitor] 40 mg PO HS 30 Days tab 07/01/20 Doxepin [SINEquan] 100 mg PO HS 30 Days capsule 07/01/20 INSULIN ASPART (NovoLOG) [NovoLOG 0 unit SQ ACHS vial 07/01/20 (formulary)] Ibuprofen [Motrin] 800 mg PO TID PRN tab 07/01/20 Nicotine 14Mg/24Hr Patch [Habitrol] 1 patch TRANSDERM DAILY 14 Days 07/01/20 patch Ondansetron Odt [Zofran ODT] 4 mg PO Q8HR PRN 14 Days tab 07/01/20 Prazosin [Minipress] 2 mg PO HS 30 Days cap 07/01/20 Propranolol [Inderal] 20 mg PO TID 30 Days tab 07/01/20 SUMAtriptan succinate [Imitrex] 50 mg PO DAILY PRN tab 07/01/20 Sertraline [Zoloft] 100 mg PO DAILY 30 Days tab 07/01/20 Topiramate [Topamax] 100 mg PO HS 30 Days tab 07/01/20 busPIRone HCL [Buspar] 15 mg PO TID 30 Days tablet 07/01/20 diphenhydrAMINE [Benadryl] 50 mg PO HS PRN 30 Days cap 07/01/20 hydrOXYzine pamoate [Vistaril] 50 mg PO QID PRN 30 Days cap 07/01/20 metFORMIN HCL [Glucophage] 500 mg PO BID-W/MEALS 30 Days tab 07/01/20 Ondansetron Odt [Zofran Odt] 4 mg PO Q8HR PRN #10 tab 07/25/20 Allergies Allergy/AdvReac Type Severity Reaction Status Date / Time bee pollen Allergy Severe Anaphylaxis Verified 07/25/20 09:54 haloperidol [From Haldol] Allergy Severe QUIT Verified 07/25/20 09:54 BREATHING haloperidol lactate Allergy Severe QUIT Verified 07/25/20 09:54 [From Haldol] BREATHING latex Allergy Severe RASH-THROAT Verified 07/25/20 09:54 CLOSES tramadol Allergy Severe Nausea & Verified 07/25/20 09:54 Vomiting murrieta Allergy Anaphylaxis Verified 07/25/20 09:54 coconut Allergy Anaphylaxis Verified 07/25/20 09:54 pineapple Allergy Anaphylaxis Verified 07/25/20 09:54 prednisone Allergy THROAT Verified 07/25/20 09:54 SWELLS spider venom Allergy Swelling Verified 07/25/20 09:54 Sulfa (Sulfonamide Allergy THROAT Verified 07/25/20 09:54 Antibiotics) SWELLS venom-wasp Allergy Swelling Verified 07/25/20 09:54 venom-wasp protein Allergy Swelling Verified 07/25/20 09:54 promethazine HCl AdvReac Severe Nausea & Verified 07/25/20 09:54 [From Phenergan] Vomiting amoxicillin AdvReac Nausea & Verified 07/25/20 09:54 Vomiting ANTS Allergy Mild Anaphylaxis Uncoded 07/25/20 09:54 Review of Systems ROS Statement: Those systems with pertinent positive or pertinent negative responses have been documented in the HPI. ROS Other: All systems not noted in ROS Statement are negative. Past Medical History Past Medical History: Asthma, Diabetes Mellitus, GERD/Reflux Additional Past Medical History / Comment(s): migraines, degenerative disk disease, endometriosis, lupus, pancreatitis History of Any Multi-Drug Resistant Organisms: None Reported Past Surgical History: Orthopedic Surgery Additional Past Surgical History / Comment(s): laparoscopc surgery for endometriosis, cyst removed from left foot, EGD Past Anesthesia/Blood Transfusion Reactions: Previous Problems w/ Anesthesia Additional Past Anesthesia/Blood Transfusion Reaction / Comment(s): hard to wake up for 48-72 hours after laparoscopic surgery-was in hosp. for 3 days Past Psychological History: Anxiety, Depression, PTSD Smoking Status: Current every day smoker, Vaper Past Alcohol Use History: Occasional Past Drug Use History: Marijuana - Past Family History Mother Family Medical History: No Reported History Additional Family Medical History / Comment(s): hx migraines Father Family Medical History: Coronary Artery Disease (CAD), Hypertension Additional Family Medical History / Comment(s): ddd, alcoholism & drug use General Exam Limitations: no limitations General appearance: alert, in no apparent distress Head exam: Present: atraumatic, normocephalic, normal inspection. Absent: other (Negative Lugo sign, raccoon eyes, hemotympanum.) Eye exam: Present: normal appearance, PERRL, EOMI Pupils: Present: normal accommodation ENT exam: Present: normal exam, normal oropharynx, mucous membranes moist, TM's normal bilaterally, normal external ear exam Neck exam: Present: normal inspection, full ROM. Absent: tenderness Respiratory exam: Present: normal lung sounds bilaterally. Absent: respiratory distress, wheezes, rales, rhonchi, stridor, chest wall tenderness, accessory m uscle use Cardiovascular Exam: Present: regular rate, normal rhythm, normal heart sounds. Absent: systolic murmur GI/Abdominal exam: Present: soft. Absent: distended, tenderness, guarding, rebound Extremities exam: Present: normal inspection, full ROM, normal capillary refill, other (Palpable DP and PT bilaterally). Absent: tenderness, joint swelling, calf tenderness Back exam: Present: normal inspection, full ROM, tenderness, vertebral tenderness (Thoracic and lumbar) Neurological exam: Present: alert, oriented X3, normal gait Psychiatric exam: Present: normal affect, normal mood Skin exam: Present: warm, dry, intact, normal color Course Vital Signs 07/28/20 07/28/20 19:16 22:15 Temperature 99.3 F Pulse Rate 108 H 95 Respiratory 16 16 Rate Blood Pressure 122/81 115/76 O2 Sat by Pulse 95 98 Oximetry Medical Decision Making - Medical Decision Making 21-year-old female presents to emergency Department with a chief complaint of fall. Physical examination is unremarkable for some tenderness in the lumbar and thoracic region. Patient had a c-collar in place on arrival. CT of the brain and C-spine is unremarkable. C-collar was cleared. X-rays of the lumbar and thoracic spines are also unremarkable. Patient was given Tylenol for pain. Strict return parameters were thoroughly discussed the patient denies hitting agreeable. Case discussed with Disposition Clinical Impression: Fall, Head injury Disposition: HOME SELF-CARE Condition: Stable Instructions (If sedation given, give patient instructions): Fall Prevention (ED) Additional Instructions: Follow-up with primary care physician. Return to emergency department if symptoms worsen. Is patient prescribed a controlled substance at d/c from ED?: No Referrals: Roxana Barton MD [Primary Care Provider] - 1-2 days Time of Disposition: 21:37
--- NOTE | 2020-07-28 20:40 | CT ---
EXAMINATION TYPE: CT brain cspine wo con DATE OF EXAM: 07/28/2020 COMPARISON: 06/25/2020 HISTORY: FALL, HEAD INJURY CT DLP: 1661.3 mGycm Automated exposure control for dose reduction was used. Images were obtained of the brain and cervical spine without contrast. Ventricles and sulci appear normal. There is no mass effect nor midline shift. There is no sign of in tracranial hemorrhage. The calvarium is intact. There is no evidence of cerebral edema. Skull base is intact. There is normal aeration of the mastoid sinuses. The cervical vertebra have normal spacing and alignment. Posterior elements are intact. There is no c ompression fracture. Prevertebral soft tissues appear normal. Facet joints appear normal. IMPRESSION: Normal unenhanced head CT scan. No change. Normal CT scan of the cervical spine. No change.
--- NOTE | 2020-07-28 21:12 | XR ---
EXAMINATION TYPE: XR lumbar spine 2 or 3V DATE OF EXAM: 07/28/2020 COMPARISON: 02/17/2020 HISTORY: Back pain. Fell down 3 steps. TECHNIQUE: 3 views FINDINGS: Lumbar vertebra have normal spacing and alignment. Posterior elements are intact. Sacroilia c joints appear intact. There is no compression fracture. IMPRESSION: Negative lumbar spine exam. No change.
--- NOTE | 2020-07-28 21:13 | XR ---
EXAMINATION TYPE: XR thoracic spine complete DATE OF EXAM: 07/28/2020 COMPARISON: 04/16/2020 HISTORY: Fell down the steps. Pain. TECHNIQUE: 3 views FINDINGS: Thoracic vertebra have normal spacing and alignment. Posterior elements are intact. There i s no paraspinal mass. There is no compression fracture. IMPRESSION: Normal thoracic spine exam. No change.
[2020-07-28] MEDS ORDERED: ACETAMINOPHEN TAB 500 MG TAB PO STA (21:41)
[2020-07-28] MEDS ORDERED: IBUPROFEN 600 MG TAB PO STA (21:42)
[2020-07-28 22:16] VITALS: BP 115/76; PULSE 95
== END 2020-07-28 22:15 | disposition home or self-care (01) ==
LOC: EC 19:13
DX: S09.90XA Unspecified injury of head, initial encounter (principal); E11.9 Type 2 diabetes mellitus without complications; J45.909 Unspecified asthma, uncomplicated; K21.9 Gastro-esophageal reflux disease without esophagitis; F17.290 Nicotine dependence, other tobacco product, uncomplicated; Z79.899 Other long term (current) drug therapy; Z91.030 Bee allergy status; Z88.8 Allergy status to other drugs, medicaments and biological substances; Z91.040 Latex allergy status; Z88.6 Allergy status to analgesic agent; Z91.018 Allergy to other foods; Z88.2 Allergy status to sulfonamides; Z88.0 Allergy status to penicillin; Z91.048 Other nonmedicinal substance allergy status; W10.9XXA Fall (on) (from) unspecified stairs and steps, initial encounter
CPT/HCPCS: 70450; 72072; 72100; 72125; 99284

== ENCOUNTER 2020-08-01 15:31 | Emergency (ER) | payer OTHER ==
[2020-08-01 15:35] VITALS: BP 126/89; PULSE 120; RESP 18; TEMP 97.8
[2020-08-01] MEDS ORDERED: MORPHINE SULFATE 4 MG/ML SYRINGE IM STA (15:52)
--- NOTE | 2020-08-01 15:57 | ED ---
Lower Extremity Injury HPI - General Chief Complaint: Extremity Injury, Lower Stated Complaint: fall/knee injury Time Seen by Provider: 08/01/20 15:39 Source: EMS Mode of arrival: EMS Limitations: no limitations - History of Present Illness Initial Comments: Patient is a 29-year-old female that presents emergency with left knee pain. She notes that she's had a migraine for past several days and felt out of it loss of balance and fell directly on her left knee. She denies hitting her head losing consciousness any numbness tingling or weakness. She did note that is painful to move her leg. She notes that her pain is a 9 out of 10 while resting there and goes above 10 during the exam. She denied any chest pain shortness breath nausea vomiting diarrhea constipation or fatigue chills - Related Data Home Medications Medication Instructions Recorded Confirmed EPINEPHrine [Epipen 2-Mike] 0.3 mg IM ONCE PRN 10/16/18 06/25/20 tiZANidine [Zanaflex] 4 mg PO BID PRN 05/08/19 06/25/20 Omeprazole [PriLOSEC] 40 mg PO HS 03/04/20 06/25/20 Previous Rx's Medication Instructions Recorded ARIPiprazole [Abilify] 7.5 mg PO DAILY 30 Days tab 07/01/20 Acetaminophen Tab [Tylenol] 500 mg PO Q6HR PRN tab 07/01/20 Albuterol Inhaler [Ventolin Hfa 2 puff INHALATION RT-Q4H PRN puff 07/01/20 Inhaler] Atorvastatin [Lipitor] 40 mg PO HS 30 Days tab 07/01/20 Doxepin [SINEquan] 100 mg PO HS 30 Days capsule 07/01/20 INSULIN ASPART (NovoLOG) [NovoLOG 0 unit SQ ACHS vial 07/01/20 (formulary)] Ibuprofen [Motrin] 800 mg PO TID PRN tab 07/01/20 Nicotine 14Mg/24Hr Patch [Habitrol] 1 patch TRANSDERM DAILY 14 Days 07/01/20 patch Ondansetron Odt [Zofran ODT] 4 mg PO Q8HR PRN 14 Days tab 07/01/20 Prazosin [Minipress] 2 mg PO HS 30 Days cap 07/01/20 Propranolol [Inderal] 20 mg PO TID 30 Days tab 07/01/20 SUMAtriptan succinate [Imitrex] 50 mg PO DAILY PRN tab 07/01/20 Sertraline [Zoloft] 100 mg PO DAILY 30 Days tab 07/01/20 Topiramate [Topamax] 100 mg PO HS 30 Days tab 07/01/20 busPIRone HCL [Buspar] 15 mg PO TID 30 Days tablet 07/01/20 diphenhydrAMINE [Benadryl] 50 mg PO HS PRN 30 Days cap 07/01/20 hydrOXYzine pamoate [Vistaril] 50 mg PO QID PRN 30 Days cap 07/01/20 metFORMIN HCL [Glucophage] 500 mg PO BID-W/MEALS 30 Days tab 07/01/20 Ondansetron Odt [Zofran Odt] 4 mg PO Q8HR PRN #10 tab 07/25/20 Allergies Allergy/AdvReac Type Severity Reaction Status Date / Time bee pollen Allergy Severe Anaphylaxis Verified 07/25/20 09:54 haloperidol [From Haldol] Allergy Severe QUIT Verified 07/25/20 09:54 BREATHING haloperidol lactate Allergy Severe QUIT Verified 07/25/20 09:54 [From Haldol] BREATHING latex Allergy Severe RASH-THROAT Verified 07/25/20 09:54 CLOSES tramadol Allergy Severe Nausea & Verified 07/25/20 09:54 Vomiting murrieta Allergy Anaphylaxis Verified 07/25/20 09:54 coconut Allergy Anaphylaxis Verified 07/25/20 09:54 pineapple Allergy Anaphylaxis Verified 07/25/20 09:54 prednisone Allergy THROAT Verified 07/25/20 09:54 SWELLS spider venom Allergy Swelling Verified 07/25/20 09:54 Sulfa (Sulfonamide Allergy THROAT Verified 07/25/20 09:54 Antibiotics) SWELLS venom-wasp Allergy Swelling Verified 07/25/20 09:54 venom-wasp protein Allergy Swelling Verified 07/25/20 09:54 promethazine HCl AdvReac Severe Nausea & Verified 07/25/20 09:54 [From Phenergan] Vomiting amoxicillin AdvReac Nausea & Verified 07/25/20 09:54 Vomiting ANTS Allergy Mild Anaphylaxis Uncoded 07/25/20 09:54 Review of Systems ROS Statement: Those systems with pertinent positive or pertinent negative responses have been documented in the HPI. ROS Other: All systems not noted in ROS Statement are negative. Past Medical History Past Medical History: Asthma, Diabetes Mellitus, GERD/Reflux Additional Past Medical History / Comment(s): migraines, degenerative disk disease, endometriosis, lupus, pancreatitis History of Any Multi-Drug Resistant Organisms: None Reported Past Surgical History: Orthopedic Surgery Additional Past Surgical History / Comment(s): laparoscopc surgery for endometriosis, cyst removed from left foot, EGD Past Anesthesia/Blood Transfusion Reactions: Previous Problems w/ Anesthesia Additional Past Anesthesia/Blood Transfusion Reaction / Comment(s): hard to wake up for 48-72 hours after laparoscopic surgery-was in hosp. for 3 days Past Psychological History: Anxiety, Depression, PTSD Smoking Status: Current every day smoker, Vaper Past Alcohol Use History: Occasional Past Drug Use History: Marijuana - Past Family History Mother Family Medical History: No Reported History Additional Family Medical History / Comment(s): hx migraines Father Family Medical History: Coronary Artery Disease (CAD), Hypertension Additional Family Medical History / Comment(s): ddd, alcoholism & drug use General Exam Limitations: no limitations General appearance: alert, in no apparent distress Head exam: Present: atraumatic, normocephalic, normal inspection Eye exam: Present: normal appearance, PERRL, EOMI. Absent: scleral icterus, conjunctival injection, periorbital swelling ENT exam: Present: normal exam, mucous membranes moist Neck exam: Present: normal inspection. Absent: tenderness, meningismus, lymphadenopathy Respiratory exam: Present: normal lung sounds bilaterally. Absent: respiratory distress, wheezes, rales, rhonchi, stridor Cardiovascular Exam: Present: regular rate, normal rhythm, normal heart sounds. Absent: systolic murmur, diastolic murmur, rubs, gallop, clicks GI/Abdominal exam: Present: soft, normal bowel sounds. Absent: distended, tenderness, guarding, rebound, rigid Extremities exam: Present: normal inspection, tenderness (Left knee over the patella and the lateral aspect.), normal capillary refill. Absent: full ROM (Decreased range of motion her left knee secondary to pain), pedal edema, joint swelling, calf tenderness Neurological exam: Present: alert, oriented X3, CN II-XII intact Psychiatric exam: Present: normal affect, normal mood Skin exam: Present: warm, dry, intact, normal color. Absent: rash Course Vital Signs 08/01/20 15:33 Temperature 97.8 F Pulse Rate 120 H Respiratory 18 Rate Blood Pressure 126/89 O2 Sat by Pulse 96 Oximetry Medical Decision Making - Medical Decision Making 21-year-old female complaining of fall on left knee with knee pain. 4 mg morphine, left knee x-rays ordered. X-ray negative for any acute fractures or dislocations. Patient most likely has a knee sprain/contusion. Case discussed with Dr. Avalos, patient can discharge home with follow-up to primary care. - Radiology Data Radiology results: report reviewed, image reviewed Left knee x-ray: There is no acute fracture/dislocation. The tricompartment joint spaces appear within normal limits. Overlying soft tissue appears unremarkable. Disposition Clinical Impression: Left knee sprain, Contusion of left knee Disposition: HOME SELF-CARE Condition: Stable Instructions (If sedation given, give patient instructions): Knee Sprain (ED) Additional Instructions: Please return to the Emergency Department if symptoms worsen or any other concerns. Follow-up with primary care in 3-5 days. Can take [id number] anti-inflammatories for symptomatic pain control. Rest ice compress elevate. Use as tolerated. Is patient prescribed a controlled substance at d/c from ED?: No Referrals: Roxana Barton MD [Primary Care Provider] - 1-2 days Time of Disposition: 16:32
--- NOTE | 2020-08-01 16:17 | XR ---
EXAMINATION TYPE: XR knee complete LT DATE OF EXAM: 08/01/2020 CLINICAL HISTORY: pain TECHNIQUE: Three views of the left knee are obtained. COMPARISON: None. FINDINGS: There is no acute fracture/dislocation. The tri-compartment joint spaces appear within no rmal limits. The overlying soft tissue appears unremarkable. IMPRESSION: There is no acute fracture or dislocation ICD 10 NO FRACTURE, INITIAL EVALUATION
== END 2020-08-01 16:44 | disposition home or self-care (01) ==
LOC: EC 15:31
DX: S80.02XA Contusion of left knee, initial encounter (principal); J45.909 Unspecified asthma, uncomplicated; E11.9 Type 2 diabetes mellitus without complications; K21.9 Gastro-esophageal reflux disease without esophagitis; G43.909 Migraine, unspecified, not intractable, without status migrainosus; F41.9 Anxiety disorder, unspecified; F32.9 Major depressive disorder, single episode, unspecified; F17.290 Nicotine dependence, other tobacco product, uncomplicated; F12.90 Cannabis use, unspecified, uncomplicated; Z79.4 Long term (current) use of insulin; Z79.51 Long term (current) use of inhaled steroids; Z79.899 Other long term (current) drug therapy; W18.30XA Fall on same level, unspecified, initial encounter
CPT/HCPCS: 73562; 99284; 96372; J2270

== ENCOUNTER 2020-08-08 11:03 | Emergency (ER) | payer OTHER ==
[2020-08-08 11:19] VITALS: BP 130/94; RESP 16; TEMP 97.8
[2020-08-08] MEDS ORDERED: diphenhydrAMINE 50 MG/ML 1 ML VIAL IM STA (11:45)
[2020-08-08] MEDS ORDERED: KETOROLAC 15 MG/ML 1 ML VIAL IM STA (11:45)
[2020-08-08] MEDS ORDERED: METOCLOPRAMIDE 5 MG/ML 2 ML VIAL IM STA (11:45)
--- NOTE | 2020-08-08 11:46 | ED ---
Headache HPI - General Chief Complaint: Headache Stated Complaint: Dizzy/headache Time Seen by Provider: 08/08/20 11:39 Mode of arrival: wheelchair Limitations: no limitations - History of Present Illness Initial Comments: 29-year-old female presents to emergency Department with a chief complaint of a headache. Patient reports history for migraines and has artery attempted taking ibuprofen with no significant Prunus symptoms. States she also takes migraine abortive medication but it did not help her symptoms. States her headache started yesterday and is located in the left side of her head along with forced into the nausea and 1 episode of vomiting early this morning. She denies any one-sided weakness paresthesias. Stated this was a gradual onset headache and not the worst headache of her life. States she come to the emergency department whenever her headache is this bad. - Related Data Home Medications Medication Instructions Recorded Confirmed EPINEPHrine [Epipen 2-Mike] 0.3 mg IM ONCE PRN 10/16/18 06/25/20 tiZANidine [Zanaflex] 4 mg PO BID PRN 05/08/19 06/25/20 Omeprazole [PriLOSEC] 40 mg PO HS 03/04/20 06/25/20 Previous Rx's Medication Instructions Recorded ARIPiprazole [Abilify] 7.5 mg PO DAILY 30 Days tab 07/01/20 Acetaminophen Tab [Tylenol] 500 mg PO Q6HR PRN tab 07/01/20 Albuterol Inhaler [Ventolin Hfa 2 puff INHALATION RT-Q4H PRN puff 07/01/20 Inhaler] Atorvastatin [Lipitor] 40 mg PO HS 30 Days tab 07/01/20 Doxepin [SINEquan] 100 mg PO HS 30 Days capsule 07/01/20 INSULIN ASPART (NovoLOG) [NovoLOG 0 unit SQ ACHS vial 07/01/20 (formulary)] Ibuprofen [Motrin] 800 mg PO TID PRN tab 07/01/20 Nicotine 14Mg/24Hr Patch [Habitrol] 1 patch TRANSDERM DAILY 14 Days 07/01/20 patch Ondansetron Odt [Zofran ODT] 4 mg PO Q8HR PRN 14 Days tab 07/01/20 Prazosin [Minipress] 2 mg PO HS 30 Days cap 07/01/20 Propranolol [Inderal] 20 mg PO TID 30 Days tab 07/01/20 SUMAtriptan succinate [Imitrex] 50 mg PO DAILY PRN tab 07/01/20 Sertraline [Zoloft] 100 mg PO DAILY 30 Days tab 07/01/20 Topiramate [Topamax] 100 mg PO HS 30 Days tab 07/01/20 busPIRone HCL [Buspar] 15 mg PO TID 30 Days tablet 07/01/20 diphenhydrAMINE [Benadryl] 50 mg PO HS PRN 30 Days cap 07/01/20 hydrOXYzine pamoate [Vistaril] 50 mg PO QID PRN 30 Days cap 07/01/20 metFORMIN HCL [Glucophage] 500 mg PO BID-W/MEALS 30 Days tab 07/01/20 Ondansetron Odt [Zofran Odt] 4 mg PO Q8HR PRN #10 tab 07/25/20 Ibuprofen [Motrin] 600 mg PO Q8HR PRN #30 tab 08/01/20 Allergies Allergy/AdvReac Type Severity Reaction Status Date / Time bee pollen Allergy Severe Anaphylaxis Verified 08/08/20 11:16 haloperidol [From Haldol] Allergy Severe QUIT Verified 08/08/20 11:16 BREATHING haloperidol lactate Allergy Severe QUIT Verified 08/08/20 11:16 [From Haldol] BREATHING latex Allergy Severe RASH-THROAT Verified 08/08/20 11:16 CLOSES tramadol Allergy Severe Nausea & Verified 08/08/20 11:16 Vomiting murrieta Allergy Anaphylaxis Verified 08/08/20 11:16 coconut Allergy Anaphylaxis Verified 08/08/20 11:16 pineapple Allergy Anaphylaxis Verified 08/08/20 11:16 prednisone Allergy THROAT Verified 08/08/20 11:16 SWELLS spider venom Allergy Swelling Verified 08/08/20 11:16 Sulfa (Sulfonamide Allergy THROAT Verified 08/08/20 11:16 Antibiotics) SWELLS venom-wasp Allergy Swelling Verified 08/08/20 11:16 venom-wasp protein Allergy Swelling Verified 08/08/20 11:16 promethazine HCl AdvReac Severe Nausea & Verified 08/08/20 11:16 [From Phenergan] Vomiting amoxicillin AdvReac Nausea & Verified 08/08/20 11:16 Vomiting ANTS Allergy Mild Anaphylaxis Uncoded 08/08/20 11:16 Review of Systems ROS Statement: Those systems with pertinent positive or pertinent negative responses have been documented in the HPI. ROS Other: All systems not noted in ROS Statement are negative. Past Medical History Past Medical History: Asthma, Diabetes Mellitus, GERD/Reflux Additional Past Medical History / Comment(s): migraines, degenerative disk disease, endometriosis, lupus, pancreatitis History of Any Multi-Drug Resistant Organisms: None Reported Past Surgical History: Orthopedic Surgery Additional Past Surgical History / Comment(s): laparoscopc surgery for e ndometriosis, cyst removed from left foot, EGD Past Anesthesia/Blood Transfusion Reactions: Previous Problems w/ Anesthesia Additional Past Anesthesia/Blood Transfusion Reaction / Comment(s): hard to wake up for 48-72 hours after laparoscopic surgery-was in hosp. for 3 days Past Psychological History: Anxiety, Depression, PTSD Smoking Status: Vaper Past Alcohol Use History: Occasional Past Drug Use History: Marijuana - Past Family History Mother Family Medical History: No Reported History Additional Family Medical History / Comment(s): hx migraines Father Family Medical History: Coronary Artery Disease (CAD), Hypertension Additional Family Medical History / Comment(s): ddd, alcoholism & drug use General Exam Limitations: no limitations General appearance: alert, in no apparent distress, obese Head exam: Present: atraumatic, normocephalic, normal inspection Eye exam: Present: normal appearance, PERRL, EOMI Pupils: Present: normal accommodation ENT exam: Present: normal exam, normal oropharynx, mucous membranes moist, TM's normal bilaterally, normal external ear exam Neck exam: Present: normal inspection, full ROM. Absent: tenderness Respiratory exam: Present: normal lung sounds bilaterally. Absent: respiratory distress, wheezes, rales, rhonchi, stridor, chest wall tenderness, accessory muscle use Cardiovascular Exam: Present: regular rate, normal rhythm, normal heart sounds. Absent: systolic murmur Extremities exam: Present: normal inspection, full ROM, normal capillary refill. Absent: tenderness, pedal edema, joint swelling Back exam: Present: normal inspection, full ROM. Absent: tenderness, CVA tenderness (R), CVA tenderness (L) Neurological exam: Present: alert, oriented X3 Psychiatric exam: Present: normal affect, normal mood Skin exam: Present: warm, dry, intact, normal color Course Vital Signs 08/08/20 08/08/20 11:17 11:53 Temperature 97.8 F Pulse Rate 133 H 100 Respiratory 16 Rate Blood Pressure 130/94 O2 Sat by Pulse 96 Oximetry Medical Decision Making - Medical Decision Making 29-year-old female with history of migraine headaches presents to emergency department with a chief complaint of a headache. Gradual onset headache and not the worst headache of her life. I did offer IV fluids and laboratory work, she declined. Patient was given Toradol, Reglan and Benadryl. on Reevaluation, patient reports improvement in his symptoms. Patient was initially tachycardic but this improved throughout hospital stay. Patient states she is comfortable to go home. Patient reports the pain is not completely resolved, she was given additional analgesia. Patient is well-known to the emergency department for frequent visits. Return parameters were discussed with patient was understanding and agreeable. Case discussed with Disposition Clinical Impression: Migraine headache Disposition: HOME SELF-CARE Condition: Stable Instructions (If sedation given, give patient instructions): Acute Headache (ED) Additional Instructions: Please return to the Emergency Department if symptoms worsen or any other concerns. Is patient prescribed a controlled substance at d/c from ED?: No Referrals: Roxana Barton MD [Primary Care Provider] - 1-2 days Time of Disposition: 11:46
[2020-08-08 11:54] VITALS: PULSE 100
[2020-08-08] MEDS ORDERED: HYDROmorphone 1 MG/ML 1 ML SYRINGE IM STA (12:34)
== END 2020-08-08 13:30 | disposition home or self-care (01) ==
LOC: EC 11:03
DX: G43.909 Migraine, unspecified, not intractable, without status migrainosus (principal); J45.909 Unspecified asthma, uncomplicated; E11.9 Type 2 diabetes mellitus without complications; K21.9 Gastro-esophageal reflux disease without esophagitis; F41.9 Anxiety disorder, unspecified; F32.9 Major depressive disorder, single episode, unspecified; Z79.4 Long term (current) use of insulin
CPT/HCPCS: 99283; 96372; J1200; J2765; J1170; J1885; 99284

== ENCOUNTER 2020-08-09 16:51 | Emergency (ER) | payer OTHER ==
[2020-08-09 17:11] VITALS: BP 136/97; PULSE 126; RESP 18; TEMP 98.3
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
== END 2020-08-09 17:33 | disposition home or self-care (01) ==
LOC: EC 16:51
DX: T74.21XA Adult sexual abuse, confirmed, initial encounter (principal); J45.909 Unspecified asthma, uncomplicated; E11.9 Type 2 diabetes mellitus without complications; K21.9 Gastro-esophageal reflux disease without esophagitis; Y07.9 Unspecified perpetrator of maltreatment and neglect
CPT/HCPCS: 99284

== ENCOUNTER 2020-08-11 14:14 | Emergency (ER) | payer OTHER ==
[2020-08-11 14:19] VITALS: BP 130/93; PULSE 120; RESP 18; TEMP 98.2
[2020-08-11] MEDS ORDERED: KETOROLAC 15 MG/ML 1 ML VIAL IVP STA (14:47)
[2020-08-11] MEDS ORDERED: ONDANSETRON 4 MG/2 ML VIAL IVP STA (14:47)
[2020-08-11] MEDS ORDERED: SODIUM CHLORIDE 0.9% 1,000 ML IV STA (14:47)
[2020-08-11] MEDS ORDERED: diphenhydrAMINE 50 MG/ML 1 ML VIAL IVP STA (14:47)
--- NOTE | 2020-08-11 14:51 | ED ---
Abdominal Pain HPI - General Chief Complaint: Abdominal Pain Stated Complaint: ABD pain Time Seen by Provider: 08/11/20 14:34 Source: patient, RN notes reviewed Mode of arrival: ambulatory Limitations: no limitations - History of Present Illness Initial Comments: Patient is a 29-year-old female that presents to the emergency department complaining of right upper quadrant abdominal pain. She notes that she does have a history of pancreatitis and thinks that it is that. She is a frequent flier to the emergency room with several different complaints. Her last discharge was yesterday 08/10/2020. She appeared to be in mild distress and pain while sitting up in bed during the exam and interview. She did note that she has been nauseous and threw up several times this morning. She denied any hematemesis. She denied chest pain shortness of breath headache diarrhea constipation fever fatigue chills. - Related Data Home Medications Medication Instructions Recorded Confirmed EPINEPHrine [Epipen 2-Mike] 0.3 mg IM ONCE PRN 10/16/18 06/25/20 tiZANidine [Zanaflex] 4 mg PO BID PRN 05/08/19 06/25/20 Omeprazole [PriLOSEC] 40 mg PO HS 03/04/20 06/25/20 Previous Rx's Medication Instructions Recorded ARIPiprazole [Abilify] 7.5 mg PO DAILY 30 Days tab 07/01/20 Acetaminophen Tab [Tylenol] 500 mg PO Q6HR PRN tab 07/01/20 Albuterol Inhaler [Ventolin Hfa 2 puff INHALATION RT-Q4H PRN puff 07/01/20 Inhaler] Atorvastatin [Lipitor] 40 mg PO HS 30 Days tab 07/01/20 Doxepin [SINEquan] 100 mg PO HS 30 Days capsule 07/01/20 INSULIN ASPART (NovoLOG) [NovoLOG 0 unit SQ ACHS vial 07/01/20 (formulary)] Ibuprofen [Motrin] 800 mg PO TID PRN tab 07/01/20 Nicotine 14Mg/24Hr Patch [Habitrol] 1 patch TRANSDERM DAILY 14 Days 07/01/20 patch Ondansetron Odt [Zofran ODT] 4 mg PO Q8HR PRN 14 Days tab 07/01/20 Prazosin [Minipress] 2 mg PO HS 30 Days cap 07/01/20 Propranolol [Inderal] 20 mg PO TID 30 Days tab 07/01/20 SUMAtriptan succinate [Imitrex] 50 mg PO DAILY PRN tab 07/01/20 Sertraline [Zoloft] 100 mg PO DAILY 30 Days tab 07/01/20 Topiramate [Topamax] 100 mg PO HS 30 Days tab 07/01/20 busPIRone HCL [Buspar] 15 mg PO TID 30 Days tablet 07/01/20 diphenhydrAMINE [Benadryl] 50 mg PO HS PRN 30 Days cap 07/01/20 hydrOXYzine pamoate [Vistaril] 50 mg PO QID PRN 30 Days cap 07/01/20 metFORMIN HCL [Glucophage] 500 mg PO BID-W/MEALS 30 Days tab 07/01/20 Ondansetron Odt [Zofran Odt] 4 mg PO Q8HR PRN #10 tab 07/25/20 Ibuprofen [Motrin] 600 mg PO Q8HR PRN #30 tab 08/01/20 Allergies Allergy/AdvReac Type Severity Reaction Status Date / Time bee pollen Allergy Severe Anaphylaxis Verified 08/11/20 14:19 haloperidol [From Haldol] Allergy Severe QUIT Verified 08/11/20 14:19 BREATHING haloperidol lactate Allergy Severe QUIT Verified 08/11/20 14:19 [From Haldol] BREATHING latex Allergy Severe RASH-THROAT Verified 08/11/20 14:19 CLOSES tramadol Allergy Severe Nausea & Verified 08/11/20 14:19 Vomiting murrieta Allergy Anaphylaxis Verified 08/11/20 14:19 coconut Allergy Anaphylaxis Verified 08/11/20 14:19 pineapple Allergy Anaphylaxis Verified 08/11/20 14:19 prednisone Allergy THROAT Verified 08/11/20 14:19 SWELLS spider venom Allergy Swelling Verified 08/11/20 14:19 Sulfa (Sulfonamide Allergy THROAT Verified 08/11/20 14:19 Antibiotics) SWELLS venom-wasp Allergy Swelling Verified 08/11/20 14:19 venom-wasp protein Allergy Swelling Verified 08/11/20 14:19 promethazine HCl AdvReac Severe Nausea & Verified 08/11/20 14:19 [From Phenergan] Vomiting amoxicillin AdvReac Nausea & Verified 08/11/20 14:19 Vomiting ANTS Allergy Mild Anaphylaxis Uncoded 08/11/20 14:19 Review of Systems ROS Statement: Those systems with pertinent positive or pertinent negative responses have been documented in the HPI. ROS Other: All systems not noted in ROS Statement are negative. Past Medical History Past Medical History: Asthma, Diabetes Mellitus, GERD/Reflux Additional Past Medical History / Comment(s): migraines, degenerative disk disease, endometriosis, lupus, pancreatitis History of Any Multi-Drug Resistant Organisms: None Reported Past Surgical History: Orthopedic Surgery Additional Past Surgical History / Comment(s): laparoscopc surgery for endometriosis, cyst removed from left foot, EGD Past Anesthesia/Blood Transfusion Reactions: Previous Problems w/ Anesthesia Additional Past Anesthesia/Blood Transfusion Reaction / Comment(s): hard to wake up for 48-72 hours after laparoscopic surgery-was in hosp. for 3 days Past Psychological History: Anxiety, Depression, PTSD Smoking Status: Vaper Past Alcohol Use History: Occasional Past Drug Use History: Marijuana - Past Family History Mother Family Medical History: No Reported History Additional Family Medical History / Comment(s): hx migraines Father Family Medical History: Coronary Artery Disease (CAD), Hypertension Additional Family Medical History / Comment(s): ddd, alcoholism & drug use General Exam Limitations: no limitations General appearance: alert, in no apparent distress, obese Head exam: Present: atraumatic, normocephalic, normal inspection Eye exam: Present: normal appearance, PERRL, EOMI. Absent: scleral icterus, conjunctival injection, periorbital swelling Neck exam: Present: normal inspection. Absent: tenderness, meningismus, lymphadenopathy Respiratory exam: Present: normal lung sounds bilaterally. Absent: respiratory distress, wheezes, rales, rhonchi, stridor Cardiovascular Exam: Present: regular rate, normal rhythm, normal heart sounds. Absent: systolic murmur, diastolic murmur, rubs, gallop, clicks GI/Abdominal exam: Present: soft, tenderness (Right upper quadrant to light palpation), normal bowel sounds. Absent: distended, guarding, rebound, rigid Extremities exam: Present: normal inspection, full ROM, normal capillary refill. Absent: tenderness, pedal edema, joint swelling, calf tenderness Neurological exam: Present: alert, oriented X3, CN II-XII intact Psychiatric exam: Present: normal affect, normal mood Skin exam: Present: warm, dry, intact, normal color. Absent: rash Course Vital Signs 08/11/20 14:16 Temperature 98.2 F Pulse Rate 120 H Respiratory 18 Rate Blood Pressure 130/93 O2 Sat by Pulse 98 Oximetry Medical Decision Making - Medical Decision Making 21-year-old female complaining of right upper quadrant pain. Labs, 1 L normal saline, 50 g Benadryl, 15 mg of Toradol, 4 mg of Zofran ordered. KUB ordered. Labs unremarkable, lipase slightly elevated. Case discussed with Dr. Avalos, patient can discharge home. - Lab Data Result diagrams: 08/11/20 14:57 08/11/20 14:57 Lab Results 08/11/20 08/11/20 08/11/20 Range/Units 14:57 14:57 14:57 WBC 7.4 (3.8-10.6) k/uL RBC 4.74 (3.80-5.40) m/uL Hgb 14.1 (11.4-16.0) gm/dL Hct 40.9 (34.0-46.0) % MCV 86.4 (80.0-100.0) fL MCH 29.8 (25.0-35.0) pg MCHC 34.4 (31.0-37.0) g/dL RDW 14.4 (11.5-15.5) % Plt Count 235 (150-450) k/uL MPV 7.1 Neutrophils % 58 % Lymphocytes % 36 % Monocytes % 3 % Eosinophils % 1 % Basophils % 1 % Neutrophils # 4.3 (1.3-7.7) k/uL Lymphocytes # 2.7 (1.0-4.8) k/uL Monocytes # 0.3 (0-1.0) k/uL Eosinophils # 0.1 (0-0.7) k/uL Basophils # 0.1 (0-0.2) k/uL Sodium 139 (137-145) mmol/L Potassium 4.1 (3.5-5.1) mmol/L Chloride 106 (98-107) mmol/L Carbon Dioxide 21 L (22-30) mmol/L Anion Gap 12 mmol/L BUN 11 (7-17) mg/dL Creatinine 0.69 (0.52-1.04) mg/dL Est GFR (CKD-EPI)AfAm >90 (>60 ml/min/1.73 sqM) Est GFR (CKD-EPI)NonAf >90 (>60 ml/min/1.73 sqM) Glucose 163 H (74-99) mg/dL Calcium 10.7 H (8.4-10.2) mg/dL Total Bilirubin 0.3 (0.2-1.3) mg/dL AST 57 H (14-36) U/L ALT 58 H (4-34) U/L Alkaline Phosphatase 79 (38-126) U/L Total Protein 7.8 (6.3-8.2) g/dL Albumin 4.5 (3.5-5.0) g/dL Amylase 42 (30-110) U/L Lipase 389 H (23-300) U/L Urine Color Light Yellow Urine Appearance Clear (Clear) Urine pH 7.0 (5.0-8.0) Ur Specific [place] 1.009 (1.001-1.035) Urine Protein Negative (Negative) Urine Glucose (UA) 1+ H (Negative) Urine Ketones Negative (Negative) Urine Blood Negative (Negative) Urine Nitrite Negative (Negative) Urine Bilirubin Negative (Negative) Urine Urobilinogen <2.0 (<2.0) mg/dL Ur Leukocyte Esterase Trace H (Negative) Urine RBC <1 (0-5) /hpf Urine WBC 2 (0-5) /hpf Ur Squamous Epith Cells 2 (0-4) /hpf Urine Bacteria Few H (None) /hpf Urine Mucus Rare H (None) /hpf - Radiology Data Radiology results: report reviewed, image reviewed KUB: Nonacute abdomen. No change. Disposition Clinical Impression: Abdominal pain Disposition: HOME SELF-CARE Condition: Stable Instructions (If sedation given, give patient instructions): Abdominal Pain (ED ) Additional Instructions: Please return to the Emergency Department if symptoms worsen or any other concerns. Follow-up with primary care in 3-5 days. Increase oral fluids, eat foods that are easy digestion give to her bowels or rest. Take [id number] anti-inflammatories for pain control. Is patient prescribed a controlled substance at d/c from ED?: No Referrals: Renny Mead MD [Primary Care Provider] - 1-2 days Time of Disposition: 16:00
[2020-08-11 15:17] LABS: Basophils # (A) 0.1 k/uL (0-0.2); Basophils % (A) 1 %; Eosinophils # (A) 0.1 k/uL (0-0.7); Eosinophils % (A) 1 %; HCT 40.9 % (34.0-46.0); HGB 14.1 gm/dL (11.4-16.0); Lymphocytes # (A) 2.7 k/uL (1.0-4.8); Lymphocytes % (A) 36 %; MCH 29.8 pg (25.0-35.0); MCHC 34.4 g/dL (31.0-37.0); MCV 86.4 fL (80.0-100.0); Mean Platelet Volume 7.1; Monocytes # (A) 0.3 k/uL (0-1.0); Monocytes % (A) 3 %; Neutrophils # (A) 4.3 k/uL (1.3-7.7); Neutrophils % (A) 58 %; Platelet Count 235 k/uL (150-450); RBC 4.74 m/uL (3.80-5.40); RDW 14.4 % (11.5-15.5); WBC 7.4 k/uL (3.8-10.6)
[2020-08-11 15:24] LABS: Appearance,Urine Clear (Clear); Bacteria,Urine Few /hpf; Bilirubin,Urine Negative (Negative); Blood,Urine Negative (Negative); Color,Urine Light Yellow; Glucose,Urine (UA) 1+ (Negative); Ketones,Urine Negative (Negative); Leukocyte Esterase,Urine Trace (Negative); Mucus,Urine Rare /hpf; Nitrite,Urine Negative (Negative); Protein,Urine Negative (Negative); RBC,Urine <1 /hpf (0-5); Specific Gravity,Urine 1.009 (1.001-1.035); Squamous Epithelial Cell,Urine 2 /hpf (0-4); Urobilinogen,Urine <2.0 mg/dL (<2.0); WBC,Urine 2 /hpf (0-5)
[2020-08-11 15:25] LABS: African American GFR (CKD) >90 (>60 ml/min/1.73 sqM); Albumin 4.5 g/dL (3.5-5.0); Amylase 42 U/L (30-110); Anion Gap 12 mmol/L; Blood Urea Nitrogen 11 mg/dL (7-17); Calcium 10.7 mg/dL (8.4-10.2); Carbon Dioxide 21 mmol/L (22-30); Chloride 106 mmol/L (98-107); Glucose 163 mg/dL (74-99); Non-African American GFR(CKD) >90 (>60 ml/min/1.73 sqM); Potassium 4.1 mmol/L (3.5-5.1); Sodium 139 mmol/L (137-145); Total Protein 7.8 g/dL (6.3-8.2)
[2020-08-11 15:26] LABS: ALT 58 U/L (4-34); AST 57 U/L (14-36); Alkaline Phosphatase 79 U/L (38-126); Lipase 389 U/L (23-300); Total Bilirubin 0.3 mg/dL (0.2-1.3)
--- NOTE | 2020-08-11 15:56 | XR ---
EXAMINATION TYPE: XR KUB DATE OF EXAM: 08/11/2020 COMPARISON: 03/04/2020 HISTORY: Abdominal pain TECHNIQUE: 2 views upright FINDINGS: There is no evidence of intestinal obstruction or pneumoperitoneum. Fecal pattern is normal . There is no evidence of a mass. Lung bases are clear. There are no pathologic calcifications. IMPRESSION: Nonacute abdomen. No change.
== END 2020-08-11 16:09 | disposition home or self-care (01) ==
LOC: EC 14:14
DX: R10.11 Right upper quadrant pain (principal); E11.9 Type 2 diabetes mellitus without complications; F32.9 Major depressive disorder, single episode, unspecified; F41.9 Anxiety disorder, unspecified; J45.909 Unspecified asthma, uncomplicated; K21.9 Gastro-esophageal reflux disease without esophagitis; F12.90 Cannabis use, unspecified, uncomplicated; Z79.4 Long term (current) use of insulin; Z87.19 Personal history of other diseases of the digestive system
CPT/HCPCS: 36415; 80053; 82150; 83690; 85025; 81001; 74018; 99284; 96374; 96375 ×2; J1200; J2405; J1885

== ENCOUNTER 2020-08-13 10:42 | Emergency (ER) | payer OTHER ==
[2020-08-13 10:54] VITALS: RESP 18; TEMP 98.1
[2020-08-13 11:34] LABS: Appearance,Urine Cloudy (Clear); Bacteria,Urine Moderate /hpf; Bilirubin,Urine Negative (Negative); Blood,Urine Negative (Negative); Color,Urine Light Yellow; Glucose,Urine (UA) Negative (Negative); Ketones,Urine Negative (Negative); Leukocyte Esterase,Urine Moderate (Negative); Mucus,Urine Occasional /hpf; Nitrite,Urine Negative (Negative); Protein,Urine Negative (Negative); RBC,Urine 1 /hpf (0-5); Squamous Epithelial Cell,Urine 9 /hpf (0-4); Urobilinogen,Urine <2.0 mg/dL (<2.0); WBC,Urine 7 /hpf (0-5)
[2020-08-13 12:06] LABS: Amphetamine Screen,Urine Not Detected (NotDetected); Cocaine Screen,Urine Not Detected (NotDetected); Opiate Screen,Urine Not Detected (NotDetected); Phencyclidine Screen,Urine Not Detected (NotDetected); Urn Cannabinoid Scrn Not Detected (NotDetected)
[2020-08-13 12:07] LABS: Barbiturate Screen,Urine Not Detected (NotDetected); Benzodiazepines Screen,Urine Not Detected (NotDetected); Methadone Screen, Urine Not Detected (NotDetected); Oxycodone Screen, Urine Not Detected (NotDetected); Tricyclic Antidepressant,Urine Detected (NotDetected)
[2020-08-13] MEDS ORDERED: LORazepam 1 MG TAB PO STA (12:39)
--- NOTE | 2020-08-13 12:52 | ED ---
Psych HPI - General Chief Complaint: Psychiatric Symptoms Stated Complaint: EPS eval Time Seen by Provider: 08/13/20 10:56 Source: patient Mode of arrival: ambulatory - History of Present Illness Initial Comments: 29-year-old feel presenting for depression. Patient states she has been feeling very down stitches a lot going on with her ex-. Patient states that she's had fleeting suicidal ideation she denies plan. Patient denies any attempt to overdose or self-harm. Patient denies any homicidal ideation. Patient denies any additional complaints aside from anxiety. Patient denies any recent fever, chills, shortness of breath, chest pain, back pain, abdominal pain, nausea or vomiting, numbness or tingling, dysuria or hematuria, constipation or diarrhea, headaches or visual changes, or any other complaints. - Related Data Home Medications Medication Instructions Recorded Confirmed EPINEPHrine [Epipen 2-Mike] 0.3 mg IM ONCE PRN 10/16/18 08/13/20 Omeprazole [PriLOSEC] 40 mg PO HS 03/04/20 08/13/20 ARIPiprazole [Abilify] 7.5 mg PO HS 08/13/20 08/13/20 Doxepin HCl [SINEquan] 100 mg PO DAILY 08/13/20 08/13/20 Emtrtenofov 200mg 200 mg PO DAILY 08/13/20 08/13/20 Ibuprofen [Motrin] 600 mg PO Q6H PRN 08/13/20 08/13/20 OLANZapine [ZyPREXA] 7.5 mg PO HS 08/13/20 08/13/20 PARoxetine [Paxil] 10 mg PO DAILY 08/13/20 08/13/20 Prazosin [Minipress] 5 mg PO DAILY 08/13/20 08/13/20 Propranolol [Inderal] 20 mg PO TID PRN 08/13/20 08/13/20 Raltegravir Potassium [Isentress] 400 mg PO DAILY 08/13/20 08/13/20 Topiramate [Topamax] 50 mg PO BID 08/13/20 08/13/20 busPIRone HCL 15 mg PO TID 08/13/20 08/13/20 clonazePAM [KlonoPIN] 0.5 mg PO Q7D PRN 08/13/20 08/13/20 diphenhydrAMINE [Benadryl] 50 mg PO HS 08/13/20 08/13/20 hydrOXYzine pamoate [Vistaril] 50 mg PO QID 08/13/20 08/13/20 metFORMIN HCL [metFORMIN HCL ER] 750 mg PO W/SUPPER 08/13/20 08/13/20 Previous Rx's Medication Instructions Recorded Atorvastatin [Lipitor] 40 mg PO HS 30 Days tab 07/01/20 Ondansetron Odt [Zofran Odt] 4 mg PO Q8HR PRN #10 tab 07/25/20 Allergies Allergy/AdvReac Type Severity Reaction Status Date / Time bee pollen Allergy Severe Anaphylaxis Verified 08/13/20 12:06 haloperidol [From Haldol] Allergy Severe QUIT Verified 08/13/20 12:06 BREATHING haloperidol lactate Allergy Severe QUIT Verified 08/13/20 12:06 [From Haldol] BREATHING latex Allergy Severe RASH-THROAT Verified 08/13/20 12:06 CLOSES tramadol Allergy Severe Nausea & Verified 08/13/20 12:06 Vomiting murrieta Allergy Anaphylaxis Verified 08/13/20 12:06 coconut Allergy Anaphylaxis Verified 08/13/20 12:06 pineapple Allergy Anaphylaxis Verified 08/13/20 12:06 prednisone Allergy THROAT Verified 08/13/20 12:06 SWELLS spider venom Allergy Swelling Verified 08/13/20 12:06 Sulfa (Sulfonamide Allergy THROAT Verified 08/13/20 12:06 Antibiotics) SWELLS venom-wasp Allergy Swelling Verified 08/13/20 12:06 venom-wasp protein Allergy Swelling Verified 08/13/20 12:06 promethazine HCl AdvReac Severe Nausea & Verified 08/13/20 12:06 [From Phenergan] Vomiting amoxicillin AdvReac Nausea & Verified 08/13/20 12:06 Vomiting ANTS Allergy Mild Anaphylaxis Uncoded 08/13/20 10:54 Review of Systems ROS Statement: Those systems with pertinent positive or pertinent negative responses have been documented in the HPI. ROS Other: All systems not noted in ROS Statement are negative. Past Medical History Past Medical History: Asthma, Diabetes Mellitus, GERD/Reflux Additional Past Medical History / Comment(s): migraines, degenerative disk disease, endometriosis, lupus, pancreatitis History of Any Multi-Drug Resistant Organisms: None Reported Past Surgical History: Orthopedic Surgery Additional Past Surgical History / Comment(s): laparoscopc surgery for endometriosis, cyst removed from left foot, EGD Past Anesthesia/Blood Transfusion Reactions: Previous Problems w/ Anesthesia Additional Past Anesthesia/Blood Transfusion Reaction / Comment(s): hard to wake up for 48-72 hours after laparoscopic surgery-was in hosp. for 3 days Past Psychological History: Anxiety, Depression, PTSD Smoking Status: Vaper Past Alcohol Use History: Occasional Past Drug Use History: Marijuana - Past Family History Mother Family Medical History: No Reported History Additional Family Medical History / Comment(s): hx migraines Father Family Medical History: Coronary Artery Disease (CAD), Hypertension Additional Family Medical History / Comment(s): ddd, alcoholism & drug use General Exam - General Exam Comments Initial Comments: General: The patient is awake and alert, in no distress, and does not appear acutely ill. Eye: Pupils are equal, round and reactive to light, extra-ocular movements are intact. No nystagmus. There is normal conjunctiva bilaterally. No signs of icterus. Ears, nose, mouth and throat: There are moist mucous membranes and no oral lesions. Neck: The neck is supple, there is no tenderness or JVD. Cardiovascular: There is a regular rate and rhythm. No murmur, rub or gallop is appreciated. Respiratory: Lungs are clear to auscultation, respirations are non-labored, breath sounds are equal. No wheezes, stridor, rales, or rhonchi. Gastrointestinal: Soft, non-distended, non-tender abdomen without masses or organomegaly noted. There is no rebound or guarding present. Musculoskeletal: Normal ROM, no tenderness. Strength 5/5. Sensation intact. Pulses equal bilaterally 2+. Neurological: A&O x 3. CN II-XII intact, There are no obvious motor or sensory deficits. Coordination appears grossly intact. Speech is normal. Skin: Skin is warm and dry and no rashes or lesions are noted. Psychiatric: Cooperative, but tearful Limitations: no limitations Course Vital Signs 08/13/20 08/13/20 10:46 13:03 Temperature 98.1 F Pulse Rate 110 H 98 Respiratory 18 18 Rate Blood Pressure 135/108 128/97 O2 Sat by Pulse 96 97 Oximetry Medical Decision Making - Medical Decision Making 29-year-old female presenting today for chief complaint of depression, fleeting suicidal ideation. Patient tearful on arrival. She denies any attempt. Denies additional complaints aside from anxiety. Patient was given Ativan. She was evaluated by EPS-who consulted psychiatrist who recommended safety plan as patient states she wants to go home and currently not suicidal. She is provided resources and was discharged appearing well. - Lab Data Lab Results 08/13/20 08/13/20 Range/Units 11:14 11:14 Urine Color Light Yellow Urine Appearance Cloudy H (Clear) Urine pH 5.0 (5.0-8.0) Ur Specific [place] 1.010 (1.001-1.035) Urine Protein Negative (Negative) Urine Glucose (UA) Negative (Negative) Urine Ketones Negative (Negative) Urine Blood Negative (Negative) Urine Nitrite Negative (Negative) Urine Bilirubin Negative (Negative) Urine Urobilinogen <2.0 (<2.0) mg/dL Ur Leukocyte Esterase Moderate H (Negative) Urine RBC 1 (0-5) /hpf Urine WBC 7 H (0-5) /hpf Ur Squamous Epith Cells 9 H (0-4) /hpf Urine Bacteria Moderate H (None) /hpf Urine Mucus Occasional H (None) /hpf Urine HCG, Qual Not Detected (Not Detectd) Urine Opiates Screen Not Detected (NotDetected) Ur Oxycodone Screen Not Detected (NotDetected) Urine Methadone Screen Not Detected (NotDetected) Ur Propoxyphene Screen Not Detected (NotDetected) Ur Barbiturates Screen Not Detected (NotDetected) U Tricyclic Antidepress Detected H (NotDetected) Ur Phencyclidine Scrn Not Detected (NotDetected) Ur Amphetamines Screen Not Detected (NotDetected) U Methamphetamines Scrn Not Detected (NotDetected) U Benzodiazepines Scrn Not Detected (NotDetected) Urine Cocaine Screen Not Detected (NotDetected) U Marijuana (THC) Screen Not Detected (NotDetected) Disposition Clinical Impression: Anxiety, Depression Disposition: HOME SELF-CARE Condition: Good Instructions (If sedation given, give patient instructions): Depression (ED), Suicide Prevention (ED) Additional Instructions: Please use medication as discussed. Please follow-up with family doctor in the next 2 days.. Please return to emergency room if the symptoms increase or worsen or for any other concerns. Is patient prescribed a controlled substance at d/c from ED?: No Referrals: Renny Mead MD [Primary Care Provider] - 1-2 days Time of Disposition: 12:51
[2020-08-13 13:04] VITALS: BP 128/97; PULSE 98
== END 2020-08-13 13:07 | disposition home or self-care (01) ==
LOC: EC 10:42
DX: F32.9 Major depressive disorder, single episode, unspecified (principal); F41.9 Anxiety disorder, unspecified; J45.909 Unspecified asthma, uncomplicated; E11.9 Type 2 diabetes mellitus without complications; K21.9 Gastro-esophageal reflux disease without esophagitis; F12.90 Cannabis use, unspecified, uncomplicated; G43.909 Migraine, unspecified, not intractable, without status migrainosus; Z79.84 Long term (current) use of oral hypoglycemic drugs
CPT/HCPCS: 80306; 81001; 81025; 82075; 99284

== ENCOUNTER 2020-08-16 15:37 | Emergency (ER) | payer OTHER ==
[2020-08-16 15:46] VITALS: RESP 18
--- NOTE | 2020-08-16 16:52 | CT ---
EXAMINATION TYPE: CT brain cspine wo con DATE OF EXAM: 08/16/2020 COMPARISON: 07/28/2020 HISTORY: Fall, migraine CT DLP: 1557 mGycm Automated exposure control for dose reduction was used. Ventricles and sulci appear normal. There is no mass effect nor midline shift. There is no sign of in tracranial hemorrhage. Cervical vertebra have normal spacing and alignment. Posterior elements are intact facet joints are i ntact. Occipital bone appears intact. IMPRESSION: Negative CT scan of the brain. Negative CT scan cervical spine. No change compared to old exam.
--- NOTE | 2020-08-16 17:01 | XR ---
EXAMINATION TYPE: XR shoulder complete RT DATE OF EXAM: 08/16/2020 COMPARISON: NONE HISTORY: Shoulder pain TECHNIQUE: 3 views FINDINGS: I see no fracture nor dislocation. Joint spaces are normal. There are no pathologic calcifi cations. IMPRESSION: Negative right shoulder exam. No fracture.
--- NOTE | 2020-08-16 17:02 | XR ---
EXAMINATION TYPE: XR forearm RT DATE OF EXAM: 08/16/2020 COMPARISON: NONE HISTORY: Forearm pain. Fall. TECHNIQUE: 2 views FINDINGS: Radius and ulna appear intact. Elbow joint is intact. There is no evidence of elbow joint e ffusion. Wrist joint is intact. IMPRESSION: Negative right forearm exam.
--- NOTE | 2020-08-16 17:03 | XR ---
EXAMINATION TYPE: XR knee complete RT DATE OF EXAM: 08/16/2020 COMPARISON: NONE HISTORY: Knee pain TECHNIQUE: 3 views FINDINGS: I see no fracture nor dislocation. Joint spaces are fairly normal. There is no sign of join t effusion. IMPRESSION: Negative right knee exam.
--- NOTE | 2020-08-16 17:27 | ED ---
Fall HPI - General Chief Complaint: Fall Stated Complaint: Fall/R shoulder/R leg injury Time Seen by Provider: 08/16/20 15:53 Source: patient Mode of arrival: wheelchair - History of Present Illness Initial Comments: 29-year-old feel presents today for chief complaint of fall patient states she tripped and fell into a stop side hitting her right side of her head shoulder forearm and right knee. Patient states these areas are tender she is able to weight-bear and ambulate. She denies loss of consciousness or use of anticoagulation therapy she states she has a headache. Patient denies additional complaints she appears well nontoxic on arrival - Related Data Home Medications Medication Instructions Recorded Confirmed EPINEPHrine [Epipen 2-Mike] 0.3 mg IM ONCE PRN 10/16/18 08/13/20 Omeprazole [PriLOSEC] 40 mg PO HS 03/04/20 08/13/20 ARIPiprazole [Abilify] 7.5 mg PO HS 08/13/20 08/13/20 Doxepin HCl [SINEquan] 100 mg PO DAILY 08/13/20 08/13/20 Emtrtenofov 200mg 200 mg PO DAILY 08/13/20 08/13/20 Ibuprofen [Motrin] 600 mg PO Q6H PRN 08/13/20 08/13/20 OLANZapine [ZyPREXA] 7.5 mg PO HS 08/13/20 08/13/20 PARoxetine [Paxil] 10 mg PO DAILY 08/13/20 08/13/20 Prazosin [Minipress] 5 mg PO DAILY 08/13/20 08/13/20 Propranolol [Inderal] 20 mg PO TID PRN 08/13/20 08/13/20 Raltegravir Potassium [Isentress] 400 mg PO DAILY 08/13/20 08/13/20 Topiramate [Topamax] 50 mg PO BID 08/13/20 08/13/20 busPIRone HCL 15 mg PO TID 08/13/20 08/13/20 clonazePAM [KlonoPIN] 0.5 mg PO Q7D PRN 08/13/20 08/13/20 diphenhydrAMINE [Benadryl] 50 mg PO HS 08/13/20 08/13/20 hydrOXYzine pamoate [Vistaril] 50 mg PO QID 08/13/20 08/13/20 metFORMIN HCL [metFORMIN HCL ER] 750 mg PO W/SUPPER 08/13/20 08/13/20 Previous Rx's Medication Instructions Recorded Atorvastatin [Lipitor] 40 mg PO HS 30 Days tab 07/01/20 Ondansetron Odt [Zofran Odt] 4 mg PO Q8HR PRN #10 tab 07/25/20 Allergies Allergy/AdvReac Type Severity Reaction Status Date / Time bee pollen Allergy Severe Anaphylaxis Verified 08/16/20 15:46 haloperidol [From Haldol] Allergy Severe QUIT Verified 08/16/20 15:46 BREATHING haloperidol lactate Allergy Severe QUIT Verified 08/16/20 15:46 [From Haldol] BREATHING latex Allergy Severe RASH-THROAT Verified 08/16/20 15:46 CLOSES tramadol Allergy Severe Nausea & Verified 08/16/20 15:46 Vomiting murrieta Allergy Anaphylaxis Verified 08/16/20 15:46 coconut Allergy Anaphylaxis Verified 08/16/20 15:46 pineapple Allergy Anaphylaxis Verified 08/16/20 15:46 prednisone Allergy THROAT Verified 08/16/20 15:46 SWELLS spider venom Allergy Swelling Verified 08/16/20 15:46 Sulfa (Sulfonamide Allergy THROAT Verified 08/16/20 15:46 Antibiotics) SWELLS venom-wasp Allergy Swelling Verified 08/16/20 15:46 venom-wasp protein Allergy Swelling Verified 08/16/20 15:46 promethazine HCl AdvReac Severe Nausea & Verified 08/16/20 15:46 [From Phenergan] Vomiting amoxicillin AdvReac Nausea & Verified 08/16/20 15:46 Vomiting ANTS Allergy Mild Anaphylaxis Uncoded 08/16/20 15:46 Review of Systems ROS Statement: Those systems with pertinent positive or pertinent negative responses have been documented in the HPI. ROS Other: All systems not noted in ROS Statement are negative. Past Medical History Past Medical History: Asthma, Diabetes Mellitus, GERD/Reflux Additional Past Medical History / Comment(s): migraines, degenerative disk disease, endometriosis, lupus, pancreatitis History of Any Multi-Drug Resistant Organisms: None Reported Past Surgical History: Orthopedic Surgery Additional Past Surgical History / Comment(s): laparoscopc surgery for endometriosis, cyst removed from left foot, EGD, Past Anesthesia/Blood Transfusion Reactions: Previous Problems w/ Anesthesia Additional Past Anesthesia/Blood Transfusion Reaction / Comment(s): hard to wake up for 48-72 hours after laparoscopic surgery-was in hosp. for 3 days Past Psychological History: Anxiety, Depression, PTSD Smoking Status: Vaper Past Alcohol Use History: Occasional Past Drug Use History: Marijuana - Past Family History Mother Family Medical History: No Reported History Additional Family Medical History / Comment(s): hx migraines Father Family Medical History: Coronary Artery Disease (CAD), Hypertension Additional Family Medical History / Comment(s): ddd, alcoholism & drug use General Exam - General Exam Comments Initial Comments: General: The patient is awake and alert, in no distress, and does not appear acutely ill. Eye: Pupils are equal, round and reactive to light, extra-ocular movements are intact. No nystagmus. There is normal conjunctiva bilaterally. No signs of icterus. Ears, nose, mouth and throat: There are moist mucous membranes and no oral lesions. No raccoon or Lugo sign Neck: The neck is supple, there is no tenderness or JVD. Cardiovascular: There is a regular rate and rhythm. No murmur, rub or gallop is appreciated. Respiratory: Lungs are clear to auscultation, respirations are non-labored, breath sounds are equal. No wheezes, stridor, rales, or rhonchi. Gastrointestinal: [Soft, non-distended, non-tender abdomen without masses or organomegaly noted. There is no rebound or guarding present. No CVA tenderness. Bowel sounds are unremarkable.] Musculoskeletal: Right knee pain right shoulder pain to palpation and range of motion. Pain over mid forearm. No bruising no swelling noted no raccoon or Lugo sign no midline cervical tenderness for a dorsal cervical spine spine without difficulty Normal ROM, no tenderness. Strength 5/5. Sensation intact. Radial and DP pulses equal bilaterally 2+. Neurological: A&O x 3. CN II-XII intact, There are no obvious motor or sensory deficits. Coordination appears grossly intact. Speech is normal. Skin: Skin is warm and dry and no rashes or lesions are noted. Psychiatric: Cooperative, appropriate mood & affect, normal judgment. Limitations: no limitations Course Vital Signs 08/16/20 08/16/20 15:43 18:01 Temperature 98.0 F 97.8 F Pulse Rate 120 H 110 H Respiratory 18 18 Rate Blood Pressure 114/83 140/67 O2 Sat by Pulse 96 96 Oximetry Medical Decision Making - Medical Decision Making imaging (-). Patient neurovascularly intact. Patient be discharged with pcp f/u. Disposition Clinical Impression: Fall, Head pain, Knee pain, right, Right forearm pain Disposition: HOME SELF-CARE Condition: Good Instructions (If sedation given, give patient instructions): Fall Prevention (ED) Additional Instructions: Please use medication as discussed. Please follow-up with family doctor in the next 2 days. Please return to emergency room if the symptoms increase or worsen or for any other concerns. Is patient prescribed a controlled substance at d/c from ED?: No Referrals: Sharlene Mead DO [Primary Care Provider] - 1-2 days Time of Disposition: 17:26
[2020-08-16 18:03] VITALS: BP 140/67; PULSE 110; TEMP 97.8
== END 2020-08-16 18:01 | disposition home or self-care (01) ==
LOC: EC 15:37
DX: R51.9 Headache, unspecified (principal); M25.561 Pain in right knee; M79.631 Pain in right forearm; J45.909 Unspecified asthma, uncomplicated; E11.9 Type 2 diabetes mellitus without complications; K21.9 Gastro-esophageal reflux disease without esophagitis; F32.9 Major depressive disorder, single episode, unspecified; F12.90 Cannabis use, unspecified, uncomplicated; Z79.84 Long term (current) use of oral hypoglycemic drugs; W01.0XXA Fall on same level from slipping, tripping and stumbling without subsequent striking against object, initial encounter
CPT/HCPCS: 70450; 72125; 99284

== ENCOUNTER 2020-08-20 21:27 | Emergency (ER) | payer OTHER ==
[2020-08-20 21:30] VITALS: TEMP 98.9
[2020-08-20] MEDS ORDERED: SODIUM CHLORIDE 0.9% 1,000 ML IV STA (22:44)
[2020-08-20] MEDS ORDERED: diphenhydrAMINE 50 MG/ML 1 ML VIAL IVP STA (22:44)
[2020-08-20] MEDS ORDERED: KETOROLAC 15 MG/ML 1 ML VIAL IVP STA (22:45)
[2020-08-20] MEDS ORDERED: ONDANSETRON 4 MG/2 ML VIAL IVP STA (22:45)
--- NOTE | 2020-08-20 23:25 | ED ---
Headache HPI - General Chief Complaint: Headache Stated Complaint: Headache Time Seen by Provider: 08/20/20 22:34 Mode of arrival: ambulatory Limitations: no limitations - History of Present Illness Initial Comments: Patient is a 29-year-old female presenting to the emergency Department with complaints of a headache that started this morning. Patient is well-known to this ER. She has a history of headaches. She did try at home medications before arrival but they are not working. She does have some nausea, one episode of vomiting at home. No fevers or chills, no changes in her vision although she has light sensitivity. She states this feels like her normal headaches. She denies any falls or trauma. She denies being . She has no further complaints at this time. - Related Data Home Medications Medication Instructions Recorded Confirmed EPINEPHrine [Epipen 2-Mike] 0.3 mg IM ONCE PRN 10/16/18 08/13/20 Omeprazole [PriLOSEC] 40 mg PO HS 03/04/20 08/13/20 ARIPiprazole [Abilify] 7.5 mg PO HS 08/13/20 08/13/20 Doxepin HCl [SINEquan] 100 mg PO DAILY 08/13/20 08/13/20 Emtrtenofov 200mg 200 mg PO DAILY 08/13/20 08/13/20 Ibuprofen [Motrin] 600 mg PO Q6H PRN 08/13/20 08/13/20 OLANZapine [ZyPREXA] 7.5 mg PO HS 08/13/20 08/13/20 PARoxetine [Paxil] 10 mg PO DAILY 08/13/20 08/13/20 Prazosin [Minipress] 5 mg PO DAILY 08/13/20 08/13/20 Propranolol [Inderal] 20 mg PO TID PRN 08/13/20 08/13/20 Raltegravir Potassium [Isentress] 400 mg PO DAILY 08/13/20 08/13/20 Topiramate [Topamax] 50 mg PO BID 08/13/20 08/13/20 busPIRone HCL 15 mg PO TID 08/13/20 08/13/20 clonazePAM [KlonoPIN] 0.5 mg PO Q7D PRN 08/13/20 08/13/20 diphenhydrAMINE [Benadryl] 50 mg PO HS 08/13/20 08/13/20 hydrOXYzine pamoate [Vistaril] 50 mg PO QID 08/13/20 08/13/20 metFORMIN HCL [metFORMIN HCL ER] 750 mg PO W/SUPPER 08/13/20 08/13/20 Previous Rx's Medication Instructions Recorded Atorvastatin [Lipitor] 40 mg PO HS 30 Days tab 07/01/20 Ondansetron Odt [Zofran Odt] 4 mg PO Q8HR PRN #10 tab 07/25/20 Allergies Allergy/AdvReac Type Severity Reaction Status Date / Time bee pollen Allergy Severe Anaphylaxis Verified 08/20/20 21:30 haloperidol [From Haldol] Allergy Severe QUIT Verified 08/20/20 21:30 BREATHING haloperidol lactate Allergy Severe QUIT Verified 08/20/20 21:30 [From Haldol] BREATHING latex Allergy Severe RASH-THROAT Verified 08/20/20 21:30 CLOSES tramadol Allergy Severe Nausea & Verified 08/20/20 21:30 Vomiting murrieta Allergy Anaphylaxis Verified 08/20/20 21:30 coconut Allergy Anaphylaxis Verified 08/20/20 21:30 pineapple Allergy Anaphylaxis Verified 08/20/20 21:30 prednisone Allergy THROAT Verified 08/20/20 21:30 SWELLS spider venom Allergy Swelling Verified 08/20/20 21:30 Sulfa (Sulfonamide Allergy THROAT Verified 08/20/20 21:30 Antibiotics) SWELLS venom-wasp Allergy Swelling Verified 08/20/20 21:30 venom-wasp protein Allergy Swelling Verified 08/20/20 21:30 promethazine HCl AdvReac Severe Nausea & Verified 08/20/20 21:30 [From Phenergan] Vomiting amoxicillin AdvReac Nausea & Verified 08/20/20 21:30 Vomiting ANTS Allergy Mild Anaphylaxis Uncoded 08/20/20 21:30 Review of Systems ROS Statement: Those systems with pertinent positive or pertinent negative responses have been documented in the HPI. ROS Other: All systems not noted in ROS Statement are negative. Past Medical History Past Medical History: Asthma, Diabetes Mellitus, GERD/Reflux Additional Past Medical History / Comment(s): migraines, degenerative disk disease, endometriosis, lupus, pancreatitis History of Any Multi-Drug Resistant Organisms: None Reported Past Surgical History: Orthopedic Surgery Additional Past Surgical History / Comment(s): laparoscopc surgery for endometriosis, cyst removed from left foot, EGD, Past Anesthesia/Blood Transfusion Reactions: Previous Problems w/ Anesthesia Additional Past Anesthesia/Blood Transfusion Reaction / Comment(s): hard to wake up for 48-72 hours after laparoscopic surgery-was in hosp. for 3 days Past Psychological History: Anxiety, Depression, PTSD Smoking Status: Vaper Past Alcohol Use History: Occasional Past Drug Use History: Marijuana - Past Family History Mother Family Medical History: No Reported History Additional Family Medical History / Comment(s): hx migraines Father Family Medical History: Coronary Artery Disease (CAD), Hypertension Additional Family Medical History / Comment(s): ddd, alcoholism & drug use General Exam - General Exam Comments Initial Comments: GENERAL: Patient is well-developed and well-nourished. Patient is nontoxic and in mild distress. HEAD: Atraumatic, normocephalic. EYES: Pupils equal round and reactive to light, extraocular movements intact, sclera anicteric, conjunctiva are normal. Eyelids were unremarkable. ENT: TMs normal, nares patent, oropharynx clear without exudates. Moist mucous membranes. NECK: Normal range of motion, supple without lymphadenopathy or JVD. LUNGS: Unlabored respirations. Breath sounds clear to auscultation bilaterally and equal. No wheezes rales or rhonchi. HEART: Regular rate and rhythm without murmurs, rubs or gallops. ABDOMEN: Soft, nontender, normoactive bowel sounds. No guarding, no rebound. No masses appreciated. : Deferred MUSCULOSKELETAL: Normal extremities with adequate strength and normal range of motion, no pitting or edema. No clubbing or cyanosis. NEUROLOGICAL: Patient is alert and oriented x 3. Motor and sensory are also intact. Cranial nerves II through XII grossly intact. Symmetrical smile. Normal speech, normal gait. PSYCH: Normal mood, normal affect. SKIN: Warm, Dry, normal turgor, no rashes or lesions noted. Limitations: no limitations Course Vital Signs 08/20/20 21:28 Temperature 98.9 F Pulse Rate 110 H Respiratory 20 Rate Blood Pressure 127/91 O2 Sat by Pulse 99 Oximetry Medical Decision Making - Medical Decision Making Patient is a 29-year-old female well known to the ER, here with headaches that started this morning. She is light sensitive, positive nausea and vomiting. She did try at home medications without improvement. Her vitals are stable, her exam is unremarkable, no acute neuro deficits. Patient was given fluids, pain control, she reports improvement in her symptoms. Patient is stable for discharge, she can go home and rest, take her already prescribed medications. She'll follow-up with her PCP. She is in agreement with this plan of care. Return parameters were discussed with her and she verbalized understanding. Case discussed with Dr. Turner. Disposition Clinical Impression: Headache Disposition: HOME SELF-CARE Condition: Stable Instructions (If sedation given, give patient instructions): Acute Headache (ED) Additional Instructions: Please return to the Emergency Department if symptoms worsen or any other concerns. Continue with your already prescribed medications. Follow up with your PCP. Is patient prescribed a controlled substance at d/c from ED?: No Referrals: Sharlene Mead DO [Primary Care Provider] - 1-2 days Time of Disposition: 00:58
[2020-08-21] MEDS ORDERED: MORPHINE SULFATE 2 MG/ML SYRINGE IVP ONE (00:41)
[2020-08-21 01:17] VITALS: BP 119/85; PULSE 100; RESP 16
== END 2020-08-21 01:18 | disposition home or self-care (01) ==
LOC: EC 21:27
DX: R51.9 Headache, unspecified (principal); R11.2 Nausea with vomiting, unspecified; F32.9 Major depressive disorder, single episode, unspecified; F41.9 Anxiety disorder, unspecified; J45.909 Unspecified asthma, uncomplicated; K21.9 Gastro-esophageal reflux disease without esophagitis; E11.9 Type 2 diabetes mellitus without complications; M32.9 Systemic lupus erythematosus, unspecified; F17.290 Nicotine dependence, other tobacco product, uncomplicated; F12.90 Cannabis use, unspecified, uncomplicated; Z79.1 Long term (current) use of non-steroidal anti-inflammatories (NSAID); Z79.84 Long term (current) use of oral hypoglycemic drugs; Z88.0 Allergy status to penicillin
CPT/HCPCS: 99283; 96374; 96375 ×3; 96361; J1200; J2405; J2270; J1885

== ENCOUNTER 2020-08-23 10:14 | Emergency (ER) | payer OTHER ==
[2020-08-23 10:19] VITALS: BP 114/80; PULSE 104; RESP 18; TEMP 98.6
--- NOTE | 2020-08-23 11:47 | ED ---
URI HPI - General Chief Complaint: Upper Respiratory Infection Stated Complaint: Cough, CHARLEEN Time Seen by Provider: 08/23/20 10:27 Source: patient, RN notes reviewed Mode of arrival: ambulatory Limitations: no limitations - History of Present Illness Initial Comments: 29-year-old female presents to emergency from with chief complaint of cough congestion. Patient states started last couple days. Patient states she is coughing so hard she vomits. She has no mental abdominal pain she complains of mild headache and bodyaches. She has chronic headaches. Patient denies any sick contacts no shortness of breath currently. She states her cough is nonproductive. Denies neck pain neck stiffness no other associated symptoms. - Related Data Home Medications Medication Instructions Recorded Confirmed EPINEPHrine [Epipen 2-Mike] 0.3 mg IM ONCE PRN 10/16/18 08/13/20 Omeprazole [PriLOSEC] 40 mg PO HS 03/04/20 08/13/20 ARIPiprazole [Abilify] 7.5 mg PO HS 08/13/20 08/13/20 Doxepin HCl [SINEquan] 100 mg PO DAILY 08/13/20 08/13/20 Emtrtenofov 200mg 200 mg PO DAILY 08/13/20 08/13/20 Ibuprofen [Motrin] 600 mg PO Q6H PRN 08/13/20 08/13/20 OLANZapine [ZyPREXA] 7.5 mg PO HS 08/13/20 08/13/20 PARoxetine [Paxil] 10 mg PO DAILY 08/13/20 08/13/20 Prazosin [Minipress] 5 mg PO DAILY 08/13/20 08/13/20 Propranolol [Inderal] 20 mg PO TID PRN 08/13/20 08/13/20 Raltegravir Potassium [Isentress] 400 mg PO DAILY 08/13/20 08/13/20 Topiramate [Topamax] 50 mg PO BID 08/13/20 08/13/20 busPIRone HCL 15 mg PO TID 08/13/20 08/13/20 clonazePAM [KlonoPIN] 0.5 mg PO Q7D PRN 08/13/20 08/13/20 diphenhydrAMINE [Benadryl] 50 mg PO HS 08/13/20 08/13/20 hydrOXYzine pamoate [Vistaril] 50 mg PO QID 08/13/20 08/13/20 metFORMIN HCL [metFORMIN HCL ER] 750 mg PO W/SUPPER 08/13/20 08/13/20 Previous Rx's Medication Instructions Recorded Atorvastatin [Lipitor] 40 mg PO HS 30 Days tab 07/01/20 Ondansetron Odt [Zofran Odt] 4 mg PO Q8HR PRN #10 tab 07/25/20 Benzonatate [Tessalon Perles] 100 mg PO TID PRN #15 capsule 08/23/20 Ondansetron Odt [Zofran Odt] 4 mg PO Q8HR PRN #10 tab 08/23/20 Allergies Allergy/AdvReac Type Severity Reaction Status Date / Time bee pollen Allergy Severe Anaphylaxis Verified 08/23/20 10:15 haloperidol [From Haldol] Allergy Severe QUIT Verified 08/23/20 10:15 BREATHING haloperidol lactate Allergy Severe QUIT Verified 08/23/20 10:15 [From Haldol] BREATHING latex Allergy Severe RASH-THROAT Verified 08/23/20 10:15 CLOSES tramadol Allergy Severe Nausea & Verified 08/23/20 10:15 Vomiting murrieta Allergy Anaphylaxis Verified 08/23/20 10:15 coconut Allergy Anaphylaxis Verified 08/23/20 10:15 pineapple Allergy Anaphylaxis Verified 08/23/20 10:15 prednisone Allergy THROAT Verified 08/23/20 10:15 SWELLS spider venom Allergy Swelling Verified 08/23/20 10:15 Sulfa (Sulfonamide Allergy THROAT Verified 08/23/20 10:15 Antibiotics) SWELLS venom-wasp Allergy Swelling Verified 08/23/20 10:15 venom-wasp protein Allergy Swelling Verified 08/23/20 10:15 promethazine HCl AdvReac Severe Nausea & Verified 08/23/20 10:15 [From Phenergan] Vomiting amoxicillin AdvReac Nausea & Verified 08/23/20 10:15 Vomiting ANTS Allergy Mild Anaphylaxis Uncoded 08/20/20 21:30 Review of Systems ROS Statement: Those systems with pertinent positive or pertinent negative responses have been documented in the HPI. ROS Other: All systems not noted in ROS Statement are negative. Past Medical History Past Medical History: Asthma, Diabetes Mellitus, GERD/Reflux Additional Past Medical History / Comment(s): migraines, degenerative disk disease, endometriosis, lupus, pancreatitis History of Any Multi-Drug Resistant Organisms: None Reported Past Surgical History: Orthopedic Surgery Additional Past Surgical History / Comment(s): laparoscopc surgery for endometriosis, cyst removed from left foot, EGD, Past Anesthesia/Blood Transfusion Reactions: Previous Problems w/ Anesthesia Additional Past Anesthesia/Blood Transfusion Reaction / Comment(s): hard to wake up for 48-72 hours after laparoscopic surgery-was in hosp. for 3 days Past Psychological History: Anxiety, Depression, PTSD Smoking Status: Vaper Past Alcohol Use History: Occasional Past Drug Use History: Marijuana - Past Family History Mother Family Medical History: No Reported History Additional Family Medical History / Comment(s): hx migraines Father Family Medical History: Coronary Artery Disease (CAD), Hypertension Additional Family Medical History / Comment(s): ddd, alcoholism & drug use General Exam Limitations: no limitations General appearance: alert, in no apparent distress Head exam: Present: atraumatic, normocephalic, normal inspection Eye exam: Present: normal appearance, PERRL, EOMI. Absent: scleral icterus, conjunctival injection, periorbital swelling ENT exam: Present: normal exam, normal oropharynx, mucous membranes moist Neck exam: Present: normal inspection, full ROM. Absent: tenderness, menin gismus, lymphadenopathy Respiratory exam: Present: normal lung sounds bilaterally. Absent: respiratory distress, wheezes, rales, rhonchi, stridor Cardiovascular Exam: Present: regular rate, normal rhythm, normal heart sounds. Absent: systolic murmur, diastolic murmur, rubs, gallop, clicks GI/Abdominal exam: Present: soft, normal bowel sounds. Absent: distended, tenderness, guarding, rebound, rigid Course Vital Signs 08/23/20 10:16 Temperature 98.6 F Pulse Rate 104 H Respiratory 18 Rate Blood Pressure 114/80 O2 Sat by Pulse 96 Oximetry Medical Decision Making - Medical Decision Making X-rays unremarkable vitals are stable, negative COVID-19 test. Patient has a viral URI with discharged in stable condition. Return parameters were discussed. - Lab Data Lab Results 08/23/20 08/23/20 Range/Units 10:37 11:12 Urine HCG, Qual Not Detected (Not Detectd) Coronavirus (PCR) Not Detected (Not Detectd) Disposition Clinical Impression: Acute upper respiratory infection Disposition: HOME SELF-CARE Condition: Stable Instructions (If sedation given, give patient instructions): Upper Respiratory Infection (ED) Additional Instructions: Please return to the Emergency Department if symptoms worsen or any other concerns. Prescriptions: Benzonatate [Tessalon Perles] 100 mg PO TID PRN #15 capsule PRN Reason: Cough Ondansetron Odt [Zofran Odt] 4 mg PO Q8HR PRN #10 tab PRN Reason: Nausea Is patient prescribed a controlled substance at d/c from ED?: No Referrals: Sharlene Mead DO [Primary Care Provider] - 1-2 days Time of Disposition: 12:12
[2020-08-23] MEDS ORDERED: ACETAMINOPHEN TAB 325 MG TAB PO STA (11:49)
--- NOTE | 2020-08-23 11:56 | XR ---
EXAMINATION TYPE: XR chest 2V DATE OF EXAM: 08/23/2020 COMPARISON: 05/07/2020 HISTORY: Fever TECHNIQUE: Frontal and lateral views of the chest are obtained. FINDINGS: There is no focal air space opacity, pleural effusion, or pneumothorax seen. The cardiac silhouette size is within normal limits. The osseous structures are intact. IMPRESSION: No acute cardiopulmonary process. No interval change since the prior study.
== END 2020-08-23 12:24 | disposition home or self-care (01) ==
LOC: EC 10:14
DX: J06.9 Acute upper respiratory infection, unspecified (principal); B97.89 Other viral agents as the cause of diseases classified elsewhere; F32.9 Major depressive disorder, single episode, unspecified; F41.9 Anxiety disorder, unspecified; F17.290 Nicotine dependence, other tobacco product, uncomplicated; F12.90 Cannabis use, unspecified, uncomplicated; J45.909 Unspecified asthma, uncomplicated; K21.9 Gastro-esophageal reflux disease without esophagitis; E11.9 Type 2 diabetes mellitus without complications; G43.909 Migraine, unspecified, not intractable, without status migrainosus; Z20.822 Contact with and (suspected) exposure to COVID-19; Z79.899 Other long term (current) drug therapy; Z79.84 Long term (current) use of oral hypoglycemic drugs; Z79.1 Long term (current) use of non-steroidal anti-inflammatories (NSAID); Z88.0 Allergy status to penicillin
CPT/HCPCS: 71046; 81025; 87635; 99285

== ENCOUNTER 2020-08-26 00:41 | Emergency (ER) | payer OTHER ==
[2020-08-26 00:46] VITALS: RESP 16; TEMP 98.2
--- NOTE | 2020-08-26 01:44 | US ---
EXAM: US Abdomen Limited, Right Upper Quadrant CLINICAL HISTORY: ITS.REASON US Reason: RUQ pain TECHNIQUE: Real-time ultrasound of the right upper quadrant with image documentation. COMPARISON: 05/07/2020 FINDINGS: Liver: The liver measures 19.65 cm. Fatty liver. No intrahepatic bile duct dilation. Gallbladder: Region of the gallbladder is obscured by bowel gas. Negative ultrasound Velasquez sign. No gallstones. Common bile duct: Common bile duct is not visualized due to bowel gas. Pancreas: Fatty infiltration of the pancreas. Obscuration of the pancreas due to bowel gas. Right kidney: The right kidney measures 10.5 x 4.4 x 5.4 cm without hydronephrosis. No stones. IMPRESSION: 1. Markedly limited study due to bowel gas. In particular, the gallbladder and the common bile duct are not visualized. 2. Negative ultrasound graphic Velasquez's sign. 3. Hepatomegaly and fatty infiltration of the liver. 4. If there is continued concern, CT imaging should be performed.
[2020-08-26 02:04] LABS: Basophils % (A) 1 %; Eosinophils # (A) 0.2 k/uL (0-0.7); Eosinophils % (A) 3 %; HCT 36.8 % (34.0-46.0); HGB 13.1 gm/dL (11.4-16.0); Lymphocytes % (A) 30 %; MCH 30.8 pg (25.0-35.0); MCHC 35.5 g/dL (31.0-37.0); MCV 86.7 fL (80.0-100.0); Mean Platelet Volume 7.4; Monocytes # (A) 0.3 k/uL (0-1.0); Monocytes % (A) 5 %; Neutrophils % (A) 61 %; Platelet Count 187 k/uL (150-450); RBC 4.25 m/uL (3.80-5.40); RDW 14.7 % (11.5-15.5); WBC 6.6 k/uL (3.8-10.6)
[2020-08-26 02:13] LABS: ALT 53 U/L (4-34); AST 71 U/L (14-36); African American GFR (CKD) >90 (>60 ml/min/1.73 sqM); Albumin 4.1 g/dL (3.5-5.0); Alkaline Phosphatase 87 U/L (38-126); Anion Gap 11 mmol/L; Blood Urea Nitrogen 11 mg/dL (7-17); Calcium 10.2 mg/dL (8.4-10.2); Carbon Dioxide 21 mmol/L (22-30); Chloride 105 mmol/L (98-107); Glucose 186 mg/dL (74-99); Lipase 464 U/L (23-300); Non-African American GFR(CKD) >90 (>60 ml/min/1.73 sqM); Potassium 4.2 mmol/L (3.5-5.1); Sodium 137 mmol/L (137-145); Total Bilirubin 0.4 mg/dL (0.2-1.3); Total Protein 7.2 g/dL (6.3-8.2)
[2020-08-26] MEDS ORDERED: ONDANSETRON 4 MG/2 ML VIAL IVP STA (02:23)
--- NOTE | 2020-08-26 02:23 | ED ---
Abdominal Pain HPI - General Chief Complaint: Abdominal Pain Stated Complaint: RUQ pain/Vomiting Time Seen by Provider: 08/26/20 00:50 Source: patient Mode of arrival: wheelchair Limitations: no limitations - History of Present Illness Initial Comments: 21-year-old female presenting to the ER today for chief complaint of upper abdominal pain. Patient states she has had right upper quadrant abdominal pain since earlier this evening. She states she has had episode of vomiting. Patient versus nausea she denies fevers lower abdominal pain vaginal bleeding dysuria urgency frequency or back pain. Patient denies any chest pain or shortness of breath. Patient has no additional complaints. - Related Data Home Medications Medication Instructions Recorded Confirmed EPINEPHrine [Epipen 2-Mike] 0.3 mg IM ONCE PRN 10/16/18 08/13/20 Omeprazole [PriLOSEC] 40 mg PO HS 03/04/20 08/13/20 ARIPiprazole [Abilify] 7.5 mg PO HS 08/13/20 08/13/20 Doxepin HCl [SINEquan] 100 mg PO DAILY 08/13/20 08/13/20 Emtrtenofov 200mg 200 mg PO DAILY 08/13/20 08/13/20 Ibuprofen [Motrin] 600 mg PO Q6H PRN 08/13/20 08/13/20 OLANZapine [ZyPREXA] 7.5 mg PO HS 08/13/20 08/13/20 PARoxetine [Paxil] 10 mg PO DAILY 08/13/20 08/13/20 Prazosin [Minipress] 5 mg PO DAILY 08/13/20 08/13/20 Propranolol [Inderal] 20 mg PO TID PRN 08/13/20 08/13/20 Raltegravir Potassium [Isentress] 400 mg PO DAILY 08/13/20 08/13/20 Topiramate [Topamax] 50 mg PO BID 08/13/20 08/13/20 busPIRone HCL 15 mg PO TID 08/13/20 08/13/20 clonazePAM [KlonoPIN] 0.5 mg PO Q7D PRN 08/13/20 08/13/20 diphenhydrAMINE [Benadryl] 50 mg PO HS 08/13/20 08/13/20 hydrOXYzine pamoate [Vistaril] 50 mg PO QID 08/13/20 08/13/20 metFORMIN HCL [metFORMIN HCL ER] 750 mg PO W/SUPPER 08/13/20 08/13/20 Previous Rx's Medication Instructions Recorded Atorvastatin [Lipitor] 40 mg PO HS 30 Days tab 07/01/20 Ondansetron Odt [Zofran Odt] 4 mg PO Q8HR PRN #10 tab 07/25/20 Benzonatate [Tessalon Perles] 100 mg PO TID PRN #15 capsule 08/23/20 Ondansetron Odt [Zofran Odt] 4 mg PO Q8HR PRN #10 tab 08/23/20 Allergies Allergy/AdvReac Type Severity Reaction Status Date / Time bee pollen Allergy Severe Anaphylaxis Verified 08/26/20 00:42 haloperidol [From Haldol] Allergy Severe QUIT Verified 08/26/20 00:42 BREATHING haloperidol lactate Allergy Severe QUIT Verified 08/26/20 00:42 [From Haldol] BREATHING latex Allergy Severe RASH-THROAT Verified 08/26/20 00:42 CLOSES tramadol Allergy Severe Nausea & Verified 08/26/20 00:42 Vomiting murrieta Allergy Anaphylaxis Verified 08/26/20 00:42 coconut Allergy Anaphylaxis Verified 08/26/20 00:42 pineapple Allergy Anaphylaxis Verified 08/26/20 00:42 prednisone Allergy THROAT Verified 08/26/20 00:42 SWELLS spider venom Allergy Swelling Verified 08/26/20 00:42 Sulfa (Sulfonamide Allergy THROAT Verified 08/26/20 00:42 Antibiotics) SWELLS venom-wasp Allergy Swelling Verified 08/26/20 00:42 venom-wasp protein Allergy Swelling Verified 08/26/20 00:42 promethazine HCl AdvReac Severe Nausea & Verified 08/26/20 00:42 [From Phenergan] Vomiting amoxicillin AdvReac Nausea & Verified 08/26/20 00:42 Vomiting ANTS Allergy Mild Anaphylaxis Uncoded 08/26/20 00:42 Review of Systems ROS Statement: Those systems with pertinent positive or pertinent negative responses have been documented in the HPI. ROS Other: All systems not noted in ROS Statement are negative. Past Medical History Past Medical History: Asthma, Diabetes Mellitus, GERD/Reflux Additional Past Medical History / Comment(s): migraines, degenerative disk disea se, endometriosis, lupus, pancreatitis History of Any Multi-Drug Resistant Organisms: None Reported Past Surgical History: Orthopedic Surgery Additional Past Surgical History / Comment(s): laparoscopc surgery for endometriosis, cyst removed from left foot, EGD, Past Anesthesia/Blood Transfusion Reactions: Previous Problems w/ Anesthesia Additional Past Anesthesia/Blood Transfusion Reaction / Comment(s): hard to wake up for 48-72 hours after laparoscopic surgery-was in hosp. for 3 days Past Psychological History: Anxiety, Depression, PTSD Smoking Status: Vaper Past Alcohol Use History: Occasional Past Drug Use History: Marijuana - Past Family History Mother Family Medical History: No Reported History Additional Family Medical History / Comment(s): hx migraines Father Family Medical History: Coronary Artery Disease (CAD), Hypertension Additional Family Medical History / Comment(s): ddd, alcoholism & drug use General Exam - General Exam Comments Initial Comments: General: The patient is awake and alert, in no distress Eye: +3 mm pupils are equal, round and reactive to light, extra-ocular movements are intact. No nystagmus. There is normal conjunctiva bilaterally. No signs of icterus. Ears, nose, mouth and throat: There are moist mucous membranes and no oral lesions. Neck: The neck is supple, there is no tenderness or JVD. Cardiovascular: There is a regular rate and rhythm. No murmur, rub or gallop is appreciated. Respiratory: Lungs are clear to auscultation, respirations are non-labored, breath sounds are equal. No wheezes, stridor, rales, or rhonchi. Gastrointestinal: Soft, non-distended, non-tender abdomen without masses or organomegaly noted. There is no rebound or guarding present. Musculoskeletal: Normal ROM, no tenderness. Strength 5/5. Sensation intact. radial pulses equal bilaterally 2+. Neurological: A&O x 3. CN II-XII intact grossly, There are no obvious motor or sensory deficits. Coordination appears grossly intact. Speech is normal. Skin: Skin is warm and dry and no rashes or lesions are noted. Psychiatric: Cooperative, appropriate mood & affect, normal judgment. Limitations: no limitations Course Vital Signs 08/26/20 08/26/20 00:42 02:42 Temperature 98.2 F Pulse Rate 115 H 92 Respiratory 16 16 Rate Blood Pressure 100/73 132/91 O2 Sat by Pulse 98 98 Oximetry Medical Decision Making - Medical Decision Making 29yo female presenting for upper abdominal pain. occurs on and off chronically. hx of pancreaittis. lipase mildly elevated. US inconclusive but bilirubin wnl and ast/alt near baseline. no fevers, no leukocytosis, after discussing case with Dr. Vasquez we feel pt is stable for discharge with pcp and GI f/u pt is agreeable to care plan as well as discharge. aware of return for inability to eat/drink/worsening pain. discussed labs with patient/[facility] results. - Lab Data Result diagrams: 08/26/20 01:29 08/26/20 01:29 Lab Results 08/26/20 08/26/20 Range/Units 01:29 01:29 WBC 6.6 (3.8-10.6) k/uL RBC 4.25 (3.80-5.40) m/uL Hgb 13.1 (11.4-16.0) gm/dL Hct 36.8 (34.0-46.0) % MCV 86.7 (80.0-100.0) fL MCH 30.8 (25.0-35.0) pg MCHC 35.5 (31.0-37.0) g/dL RDW 14.7 (11.5-15.5) % Plt Count 187 (150-450) k/uL MPV 7.4 Neutrophils % 61 % Lymphocytes % 30 % Monocytes % 5 % Eosinophils % 3 % Basophils % 1 % Neutrophils # 4.0 (1.3-7.7) k/uL Lymphocytes # 2.0 (1.0-4.8) k/uL Monocytes # 0.3 (0-1.0) k/uL Eosinophils # 0.2 (0-0.7) k/uL Basophils # 0.0 (0-0.2) k/uL Sodium 137 (137-145) mmol/L Potassium 4.2 (3.5-5.1) mmol/L Chloride 105 (98-107) mmol/L Carbon Dioxide 21 L (22-30) mmol/L Anion Gap 11 mmol/L BUN 11 (7-17) mg/dL Creatinine 0.77 (0.52-1.04) mg/dL Est GFR (CKD-EPI)AfAm >90 (>60 ml/min/1.73 sqM) Est GFR (CKD-EPI)NonAf >90 (>60 ml/min/1.73 sqM) Glucose 186 H (74-99) mg/dL Calcium 10.2 (8.4-10.2) mg/dL Total Bilirubin 0.4 (0.2-1.3) mg/dL AST 71 H (14-36) U/L ALT 53 H (4-34) U/L Alkaline Phosphatase 87 (38-126) U/L Total Protein 7.2 (6.3-8.2) g/dL Albumin 4.1 (3.5-5.0) g/dL Lipase 464 H (23-300) U/L Disposition Clinical Impression: RUQ pain, Vomiting Disposition: HOME SELF-CARE Condition: Good Instructions (If sedation given, give patient instructions): Abdominal Pain (ED) Additional Instructions: Please use medication as discussed. Please follow-up with family doctor in the next 2 days.. Please return to emergency room if the symptoms increase or worsen or for any other concerns. Is patient prescribed a controlled substance at d/c from ED?: No Referrals: Sharlene Mead DO [Primary Care Provider] - 1-2 days Time of Disposition: 02:23
[2020-08-26] MEDS ORDERED: METOCLOPRAMIDE 5 MG/ML 2 ML VIAL IM STA (02:27)
[2020-08-26] MEDS ORDERED: HYDROmorphone 0.5 MG/0.5 ML SYRINGE IM STA (02:27)
[2020-08-26 02:46] VITALS: BP 132/91; PULSE 92
== END 2020-08-26 02:42 | disposition home or self-care (01) ==
LOC: EC 00:41
DX: R10.11 Right upper quadrant pain (principal); R11.10 Vomiting, unspecified; J45.909 Unspecified asthma, uncomplicated; K21.9 Gastro-esophageal reflux disease without esophagitis; E11.9 Type 2 diabetes mellitus without complications; M32.9 Systemic lupus erythematosus, unspecified; G43.909 Migraine, unspecified, not intractable, without status migrainosus; F32.9 Major depressive disorder, single episode, unspecified; F41.9 Anxiety disorder, unspecified; F17.290 Nicotine dependence, other tobacco product, uncomplicated; F12.90 Cannabis use, unspecified, uncomplicated; Z79.84 Long term (current) use of oral hypoglycemic drugs; Z79.1 Long term (current) use of non-steroidal anti-inflammatories (NSAID); Z79.899 Other long term (current) drug therapy
CPT/HCPCS: 36415; 80053; 83690; 85025; 76705; 99284; 96372 ×2; J2765; J1170

== ENCOUNTER 2020-09-08 04:57 | Emergency (ER) | payer OTHER ==
--- NOTE | 2020-09-08 05:00 | ED ---
Recheck HPI - General Stated Complaint: Migraine Time Seen by Provider: 09/08/20 04:59 - Related Data Home Medications Medication Instructions Recorded Confirmed EPINEPHrine [Epipen 2-Mike] 0.3 mg IM ONCE PRN 10/16/18 08/13/20 Omeprazole [PriLOSEC] 40 mg PO HS 03/04/20 08/13/20 ARIPiprazole [Abilify] 7.5 mg PO HS 08/13/20 08/13/20 Doxepin HCl [SINEquan] 100 mg PO DAILY 08/13/20 08/13/20 Emtrtenofov 200mg 200 mg PO DAILY 08/13/20 08/13/20 Ibuprofen [Motrin] 600 mg PO Q6H PRN 08/13/20 08/13/20 OLANZapine [ZyPREXA] 7.5 mg PO HS 08/13/20 08/13/20 PARoxetine [Paxil] 10 mg PO DAILY 08/13/20 08/13/20 Prazosin [Minipress] 5 mg PO DAILY 08/13/20 08/13/20 Propranolol [Inderal] 20 mg PO TID PRN 08/13/20 08/13/20 Raltegravir Potassium [Isentress] 400 mg PO DAILY 08/13/20 08/13/20 Topiramate [Topamax] 50 mg PO BID 08/13/20 08/13/20 busPIRone HCL 15 mg PO TID 08/13/20 08/13/20 clonazePAM [KlonoPIN] 0.5 mg PO Q7D PRN 08/13/20 08/13/20 diphenhydrAMINE [Benadryl] 50 mg PO HS 08/13/20 08/13/20 hydrOXYzine pamoate [Vistaril] 50 mg PO QID 08/13/20 08/13/20 metFORMIN HCL [metFORMIN HCL ER] 750 mg PO W/SUPPER 08/13/20 08/13/20 Previous Rx's Medication Instructions Recorded Atorvastatin [Lipitor] 40 mg PO HS 30 Days tab 07/01/20 Ondansetron Odt [Zofran Odt] 4 mg PO Q8HR PRN #10 tab 07/25/20 Benzonatate [Tessalon Perles] 100 mg PO TID PRN #15 capsule 08/23/20 Ondansetron Odt [Zofran Odt] 4 mg PO Q8HR PRN #10 tab 08/23/20 Allergies Allergy/AdvReac Type Severity Reaction Status Date / Time bee pollen Allergy Severe Anaphylaxis Verified 09/08/20 05:01 haloperidol [From Haldol] Allergy Severe QUIT Verified 09/08/20 05:01 BREATHING haloperidol lactate Allergy Severe QUIT Verified 09/08/20 05:01 [From Haldol] BREATHING latex Allergy Severe RASH-THROAT Verified 09/08/20 05:01 CLOSES tramadol Allergy Severe Nausea & Verified 09/08/20 05:01 Vomiting murrieta Allergy Anaphylaxis Verified 09/08/20 05:01 coconut Allergy Anaphylaxis Verified 09/08/20 05:01 pineapple Allergy Anaphylaxis Verified 09/08/20 05:01 prednisone Allergy THROAT Verified 09/08/20 05:01 SWELLS spider venom Allergy Swelling Verified 09/08/20 05:01 Sulfa (Sulfonamide Allergy THROAT Verified 09/08/20 05:01 Antibiotics) SWELLS venom-wasp Allergy Swelling Verified 09/08/20 05:01 venom-wasp protein Allergy Swelling Verified 09/08/20 05:01 promethazine HCl AdvReac Severe Nausea & Verified 09/08/20 05:01 [From Phenergan] Vomiting amoxicillin AdvReac Nausea & Verified 09/08/20 05:01 Vomiting ANTS Allergy Mild Anaphylaxis Uncoded 09/08/20 05:01 Review of Systems ROS Statement: Those systems with pertinent positive or pertinent negative responses have been documented in the HPI. ROS Other: All systems not noted in ROS Statement are negative. Past Medical History Past Medical History: Asthma, Diabetes Mellitus, GERD/Reflux Additional Past Medical History / Comment(s): migraines, degenerative disk disease, endometriosis, lupus, pancreatitis History of Any Multi-Drug Resistant Organisms: None Reported Past Surgical History: Orthopedic Surgery Additional Past Surgical History / Comment(s): laparoscopc surgery for endometriosis, cyst removed from left foot, EGD, Past Anesthesia/Blood Transfusion Reactions: Previous Problems w/ Anesthesia Additional Past Anesthesia/Blood Transfusion Reaction / Comment(s): hard to wake up for 48-72 hours after laparoscopic surgery-was in hosp. for 3 days Past Psychological History: Anxiety, Depression, PTSD Smoking Status: Vaper Past Alcohol Use History: Occasional Past Drug Use History: Marijuana - Past Family History Mother Family Medical History: No Reported History Additional Family Medical History / Comment(s): hx migraines Father Family Medical History: Coronary Artery Disease (CAD), Hypertension Additional Family Medical History / Comment(s): ddd, alcoholism & drug use Course Vital Signs 09/08/20 05:02 Temperature 97.4 F L Pulse Rate 111 H Respiratory 18 Rate Blood Pressure 128/93 O2 Sat by Pulse 97 Oximetry Disposition Clinical Impression: Migraine headache Disposition: HOME SELF-CARE Condition: Good Instructions (If sedation given, give patient instructions): Acute Headache (ED) Is patient prescribed a controlled substance at d/c from ED?: No Referrals: Katharine Rojas DO [Primary Care Provider] - 1-2 days
[2020-09-08 05:04] VITALS: TEMP 97.4
[2020-09-08] MEDS ORDERED: HYDROmorphone 1 MG/ML 1 ML SYRINGE IM STA (05:25)
[2020-09-08] MEDS ORDERED: CYCLOBENZAPRINE 10 MG TAB PO STA (05:25)
[2020-09-08] MEDS ORDERED: PROCHLORPERAZINE 10 MG TAB PO STA (05:25)
[2020-09-08] MEDS ORDERED: diazePAM 5 MG TAB PO STA (05:25)
[2020-09-08 06:45] VITALS: BP 122/82; PULSE 103; RESP 14
== END 2020-09-08 06:34 | disposition home or self-care (01) ==
LOC: EC 04:57
DX: G43.909 Migraine, unspecified, not intractable, without status migrainosus (principal); J45.909 Unspecified asthma, uncomplicated; E11.9 Type 2 diabetes mellitus without complications; F41.9 Anxiety disorder, unspecified; F32.9 Major depressive disorder, single episode, unspecified; K21.9 Gastro-esophageal reflux disease without esophagitis; F17.290 Nicotine dependence, other tobacco product, uncomplicated; Z79.84 Long term (current) use of oral hypoglycemic drugs
CPT/HCPCS: 99283; 96372; S0183; J1170

== ENCOUNTER 2020-09-14 21:23 | Emergency (ER) | payer OTHER ==
[2020-09-14 22:57] VITALS: TEMP 98.1
[2020-09-14] MEDS ORDERED: ONDANSETRON 4 MG/2 ML VIAL IVP STA (23:49)
[2020-09-14] MEDS ORDERED: MORPHINE SULFATE 4 MG/ML SYRINGE IV STA (23:49)
[2020-09-14] MEDS ORDERED: PANTOPRAZOLE 40 MG/10 ML VIAL IVP STA (23:49)
[2020-09-14] MEDS ORDERED: SODIUM CHLORIDE 0.9% 1,000 ML IV STA (23:49)
--- NOTE | 2020-09-14 23:50 | ED ---
Abdominal Pain HPI - General Chief Complaint: Abdominal Pain Stated Complaint: abd pain Time Seen by Provider: 09/14/20 23:01 Source: patient, RN notes reviewed, old records reviewed Mode of arrival: ambulatory Limitations: no limitations - History of Present Illness Initial Comments: This is a 29 patient has no bleeding.-year-old female DF for evaluation patient presents today for evaluation of multiple complaints flank pain epigastric pain or abdominal pain.. No fevers. Patient also has nausea vomiting was seen recently for possible miscarriage. MD Complaint: abdominal pain, flank pain -: days(s) Location: epigastric, suprapubic Radiation: epigastric, suprapubic Migration to: suprapubic Severity: moderate Severity scale (1-10): 5 Quality: stabbing Consistency: intermittent Improves With: nothing Worsens With: nothing Context: other (Recent miscarriage) Associated Symptoms: nausea, vomiting - Related Data Home Medications Medication Instructions Recorded Confirmed EPINEPHrine [Epipen 2-Mike] 0.3 mg IM ONCE PRN 10/16/18 08/13/20 Omeprazole [PriLOSEC] 40 mg PO HS 03/04/20 08/13/20 ARIPiprazole [Abilify] 7.5 mg PO HS 08/13/20 08/13/20 Doxepin HCl [SINEquan] 100 mg PO DAILY 08/13/20 08/13/20 Emtrtenofov 200mg 200 mg PO DAILY 08/13/20 08/13/20 Ibuprofen [Motrin] 600 mg PO Q6H PRN 08/13/20 08/13/20 OLANZapine [ZyPREXA] 7.5 mg PO HS 08/13/20 08/13/20 PARoxetine [Paxil] 10 mg PO DAILY 08/13/20 08/13/20 Prazosin [Minipress] 5 mg PO DAILY 08/13/20 08/13/20 Propranolol [Inderal] 20 mg PO TID PRN 08/13/20 08/13/20 Raltegravir Potassium [Isentress] 400 mg PO DAILY 08/13/20 08/13/20 Topiramate [Topamax] 50 mg PO BID 08/13/20 08/13/20 busPIRone HCL 15 mg PO TID 08/13/20 08/13/20 clonazePAM [KlonoPIN] 0.5 mg PO Q7D PRN 08/13/20 08/13/20 diphenhydrAMINE [Benadryl] 50 mg PO HS 08/13/20 08/13/20 hydrOXYzine pamoate [Vistaril] 50 mg PO QID 08/13/20 08/13/20 metFORMIN HCL [metFORMIN HCL ER] 750 mg PO W/SUPPER 08/13/20 08/13/20 Previous Rx's Medication Instructions Recorded Atorvastatin [Lipitor] 40 mg PO HS 30 Days tab 07/01/20 Ondansetron Odt [Zofran Odt] 4 mg PO Q8HR PRN #10 tab 07/25/20 Benzonatate [Tessalon Perles] 100 mg PO TID PRN #15 capsule 08/23/20 Ondansetron Odt [Zofran Odt] 4 mg PO Q8HR PRN #10 tab 08/23/20 Cephalexin [Keflex] 500 mg PO Q6HR #28 cap 09/15/20 Allergies Allergy/AdvReac Type Severity Reaction Status Date / Time bee pollen Allergy Severe Anaphylaxis Verified 09/23/20 13:32 haloperidol [From Haldol] Allergy Severe QUIT Verified 09/23/20 13:32 BREATHING haloperidol lactate Allergy Severe QUIT Verified 09/23/20 13:32 [From Haldol] BREATHING latex Allergy Severe RASH-THROAT Verified 09/23/20 13:32 CLOSES tramadol Allergy Severe Nausea & Verified 09/23/20 13:32 Vomiting murrieta Allergy Anaphylaxis Verified 09/23/20 13:32 coconut Allergy Anaphylaxis Verified 09/23/20 13:32 pineapple Allergy Anaphylaxis Verified 09/23/20 13:32 prednisone Allergy THROAT Verified 09/23/20 13:32 SWELLS spider venom Allergy Swelling Verified 09/23/20 13:32 Sulfa (Sulfonamide Allergy THROAT Verified 09/23/20 13:32 Antibiotics) SWELLS venom-wasp Allergy Swelling Verified 09/23/20 13:32 venom-wasp protein Allergy Swelling Verified 09/23/20 13:32 promethazine HCl AdvReac Severe Nausea & Verified 09/23/20 13:32 [From Phenergan] Vomiting amoxicillin AdvReac Nausea & Verified 09/23/20 13:32 Vomiting ANTS Allergy Mild Anaphylaxis Uncoded 09/23/20 13:32 Review of Systems ROS Statement: Those systems with pertinent positive or pertinent negative responses have been documented in the HPI. ROS Other: All systems not noted in ROS Statement are negative. Past Medical History Past Medical History: Asthma, Diabetes Mellitus, GERD/Reflux Additional Past Medical History / Comment(s): migraines, degenerative disk disease, endometriosis, lupus, pancreatitis History of Any Multi-Drug Resistant Organisms: None Reported Past Surgical History: Orthopedic Surgery Additional Past Surgical History / Comment(s): laparoscopc surgery for endometriosis, cyst removed from left foot, EGD, Past Anesthesia/Blood Transfusion Reactions: Previous Problems w/ Anesthesia Additional Past Anesthesia/Blood Transfusion Reaction / Comment(s): hard to wake up for 48-72 hours after laparoscopic surgery-was in hosp. for 3 days Past Psychological History: Anxiety, Depression, PTSD Smoking Status: Vaper Past Alcohol Use History: Occasional Past Drug Use History: Marijuana - Past Family History Mother Family Medical History: No Reported History Additional Family Medical History / Comment(s): hx migraines Father Family Medical History: Coronary Artery Disease (CAD), Hypertension Additional Family Medical History / Comment(s): ddd, alcoholism & drug use General Exam Limitations: no limitations General appearance: alert, in no apparent distress, anxious Head exam: Present: atraumatic, normocephalic, normal inspection Eye exam: Present: normal appearance, PERRL, EOMI. Absent: scleral icterus, conjunctival injection, periorbital swelling ENT exam: Present: normal exam, mucous membranes moist Neck exam: Present: normal inspection. Absent: tenderness, meningismus, lymphadenopathy Respiratory exam: Present: normal lung sounds bilaterally. Absent: respiratory distress, wheezes, rales, rhonchi, stridor Cardiovascular Exam: Present: normal rhythm, tachycardia, normal heart sounds. Absent: systolic murmur, diastolic murmur, rubs, gallop, clicks GI/Abdominal exam: Present: soft, normal bowel sounds. Absent: distended, tenderness, guarding, rebound, rigid Extremities exam: Present: normal inspection, full ROM, normal capillary refill. Absent: tenderness, pedal edema, joint swelling, calf tenderness Back exam: Present: normal inspection Neurological exam: Present: alert, oriented X3, CN II-XII intact Psychiatric exam: Present: normal affect, normal mood Skin exam: Present: warm, dry, intact, normal color. Absent: rash Course Vital Signs 09/14/20 09/15/20 22:52 03:00 Temperature 98.1 F Pulse Rate 122 H 89 Respiratory 20 18 Rate Blood Pressure 120/89 121/79 O2 Sat by Pulse 98 97 Oximetry - Reevaluation(s) Reevaluation #1: Medical record is reviewed Patient symptoms adequately improving control Patient informed results and questions have been answered Medical Decision Making - Medical Decision Making 21 female with abdominal pain and dysuria positive urinary tract infection. Imaging is otherwise negative patient can be discharged home - Lab Data Result diagrams: 09/15/20 00:39 09/15/20 00:39 Lab Results 09/15/20 09/15/20 09/15/20 Range/Units 00:39 00:39 00:39 WBC 11.5 H (3.8-10.6) k/uL RBC 4.66 (3.80-5.40) m/uL Hgb 13.9 (11.4-16.0) gm/dL Hct 40.8 (34.0-46.0) % MCV 87.5 (80.0-100.0) fL MCH 29.9 (25.0-35.0) pg MCHC 34.2 (31.0-37.0) g/dL RDW 14.5 (11.5-15.5) % Plt Count 240 (150-450) k/uL MPV 7.2 Neutrophils % 62 % Lymphocytes % 31 % Monocytes % 4 % Eosinophils % 1 % Basophils % 1 % Neutrophils # 7.1 (1.3-7.7) k/uL Lymphocytes # 3.6 (1.0-4.8) k/uL Monocytes # 0.5 (0-1.0) k/uL Eosinophils # 0.1 (0-0.7) k/uL Basophils # 0.1 (0-0.2) k/uL Sodium 136 L (137-145) mmol/L Potassium 4.3 (3.5-5.1) mmol/L Chloride 103 (98-107) mmol/L Carbon Dioxide 22 (22-30) mmol/L Anion Gap 11 mmol/L BUN 11 (7-17) mg/dL Creatinine 0.68 (0.52-1.04) mg/dL Est GFR (CKD-EPI)AfAm >90 (>60 ml/min/1.73 sqM) Est GFR (CKD-EPI)NonAf >90 (>60 ml/min/1.73 sqM) Glucose 140 H (74-99) mg/dL Lactic Ac Sepsis Rflx Plasma Lactic Acid Aurelio (0.7-2.0) mmol/L Calcium 10.3 H (8.4-10.2) mg/dL Total Bilirubin 0.5 (0.2-1.3) mg/dL AST 72 H (14-36) U/L ALT 49 H (4-34) U/L Alkaline Phosphatase 75 (38-126) U/L Creatine Kinase 94 (30-135) U/L Total Protein 7.5 (6.3-8.2) g/dL Albumin 4.2 (3.5-5.0) g/dL Amylase 47 (30-110) U/L Lipase 305 H (23-300) U/L Urine Color Yellow Urine Appearance Cloudy H (Clear) Urine pH 5.5 (5.0-8.0) Ur Specific Parlin 1.031 (1.001-1.035) Urine Protein 1+ H (Negative) Urine Glucose (UA) Negative (Negative) Urine Ketones Trace H (Negative) Urine Blood Negative (Negative) Urine Nitrite Negative (Negative) Urine Bilirubin Negative (Negative) Urine Urobilinogen 2.0 (<2.0) mg/dL Ur Leukocyte Esterase Large H (Negative) Urine RBC 3 (0-5) /hpf Urine WBC 60 H (0-5) /hpf Ur Squamous Epith Cells 9 H (0-4) /hpf Urine Bacteria Many H (None) /hpf Urine Mucus Few H (None) /hpf Chlamydia Source Chlamydia DNA (PCR) (Neg,Equiv) N. gonorrhoeae Source N.gonorrhoeae DNA Probe (Neg,Equiv) 09/15/20 09/15/20 09/15/20 Range/Units 00:39 00:39 01:52 WBC (3.8-10.6) k/uL RBC (3.80-5.40) m/uL Hgb (11.4-16.0) gm/dL Hct (34.0-46.0) % MCV (80.0-100.0) fL MCH (25.0-35.0) pg MCHC (31.0-37.0) g/dL RDW (11.5-15.5) % Plt Count (150-450) k/uL MPV Neutrophils % % Lymphocytes % % Monocytes % % Eosinophils % % Basophils % % Neutrophils # (1.3-7.7) k/uL Lymphocytes # (1.0-4.8) k/uL Monocytes # (0-1.0) k/uL Eosinophils # (0-0.7) k/uL Basophils # (0-0.2) k/uL Sodium (137-145) mmol/L Potassium (3.5-5.1) mmol/L Chloride (98-107) mmol/L Carbon Dioxide (22-30) mmol/L Anion Gap mmol/L BUN (7-17) mg/dL Creatinine (0.52-1.04) mg/dL Est GFR (CKD-EPI)AfAm (>60 ml/min/1.73 sqM) Est GFR (CKD-EPI)NonAf (>60 ml/min/1.73 sqM) Glucose (74-99) mg/dL Lactic Ac Sepsis Rflx Y Plasma Lactic Acid Aurelio 2.3 H* (0.7-2.0) mmol/L Calcium (8.4-10.2) mg/dL Total Bilirubin (0.2-1.3) mg/dL AST (14-36) U/L ALT (4-34) U/L Alkaline Phosphatase (38-126) U/L Creatine Kinase (30-135) U/L Total Protein (6.3-8.2) g/dL Albumin (3.5-5.0) g/dL Amylase (30-110) U/L Lipase (23-300) U/L Urine Color Urine Appearance (Clear) Urine pH (5.0-8.0) Ur Specific [place] (1.001-1.035) Urine Protein (Negative) Urine Glucose (UA) (Negative) Urine Ketones (Negative) Urine Blood (Negative) Urine Nitrite (Negative) Urine Bilirubin (Negative) Urine Urobilinogen (<2.0) mg/dL Ur Leukocyte Esterase (Negative) Urine RBC (0-5) /hpf Urine WBC (0-5) /hpf Ur Squamous Epith Cells (0-4) /hpf Urine Bacteria (None) /hpf Urine Mucus (None) /hpf Chlamydia Source Urine Chlamydia DNA (PCR) Negative (Neg,Equiv) N. gonorrhoeae Source Urine N.gonorrhoeae DNA Probe Negative (Neg,Equiv) - Radiology Data Radiology results: report reviewed (Ultrasound gallbladder CT head and pelvis negative for acute disease), image reviewed Disposition Clinical Impression: Abdominal pain, UTI (urinary tract infection) Disposition: HOME SELF-CARE Condition: Good Instructions (If sedation given, give patient instructions): Urinary Tract Infection in Women (ED), Abdominal Pain (ED) Prescriptions: Cephalexin [Keflex] 500 mg PO Q6HR #28 cap Is patient prescribed a controlled substance at d/c from ED?: No Referrals: Katharine Rojas DO [Primary Care Provider] - 1-2 days
[2020-09-15 01:22] LABS: Basophils # (A) 0.1 k/uL (0-0.2); Basophils % (A) 1 %; Eosinophils # (A) 0.1 k/uL (0-0.7); Eosinophils % (A) 1 %; HCT 40.8 % (34.0-46.0); HGB 13.9 gm/dL (11.4-16.0); Lymphocytes # (A) 3.6 k/uL (1.0-4.8); Lymphocytes % (A) 31 %; MCH 29.9 pg (25.0-35.0); MCHC 34.2 g/dL (31.0-37.0); MCV 87.5 fL (80.0-100.0); Mean Platelet Volume 7.2; Monocytes # (A) 0.5 k/uL (0-1.0); Monocytes % (A) 4 %; Neutrophils # (A) 7.1 k/uL (1.3-7.7); Neutrophils % (A) 62 %; Platelet Count 240 k/uL (150-450); RBC 4.66 m/uL (3.80-5.40); RDW 14.5 % (11.5-15.5); WBC 11.5 k/uL (3.8-10.6)
[2020-09-15 01:26] LABS: Appearance,Urine Cloudy (Clear); Bacteria,Urine Many /hpf; Bilirubin,Urine Negative (Negative); Blood,Urine Negative (Negative); Color,Urine Yellow; Glucose,Urine (UA) Negative (Negative); Ketones,Urine Trace (Negative); Leukocyte Esterase,Urine Large (Negative); Mucus,Urine Few /hpf; Nitrite,Urine Negative (Negative); PH, Urine 5.5 (5.0-8.0); Protein,Urine 1+ (Negative); RBC,Urine 3 /hpf (0-5); Specific Gravity,Urine 1.031 (1.001-1.035); Squamous Epithelial Cell,Urine 9 /hpf (0-4); WBC,Urine 60 /hpf (0-5)
--- NOTE | 2020-09-15 01:29 | US ---
EXAM: US Abdomen Limited, Right Upper Quadrant CLINICAL HISTORY: ITS.REASON US Reason: pain TECHNIQUE: Real-time ultrasound of the right upper quadrant with image documentation. COMPARISON: No relevant prior studies available. FINDINGS: Liver: Liver is prominent measuring up to 18.7 cm. Increased echogenicity Gallbladder: No stones, sludge, wall thickening or pericholecystic fluid. Positive sonographic Velasquez's sign. Common bile duct: Common bile duct measures 4-5 mm Pancreas: Unremarkable as visualized. Right kidney: Unremarkable measuring up to 10.2 cm. No stone or mass. IMPRESSION: Mild hepatomegaly with steatosis.
[2020-09-15 01:33] LABS: ALT 49 U/L (4-34); AST 72 U/L (14-36); African American GFR (CKD) >90 (>60 ml/min/1.73 sqM); Albumin 4.2 g/dL (3.5-5.0); Alkaline Phosphatase 75 U/L (38-126); Amylase 47 U/L (30-110); Anion Gap 11 mmol/L; Blood Urea Nitrogen 11 mg/dL (7-17); Calcium 10.3 mg/dL (8.4-10.2); Carbon Dioxide 22 mmol/L (22-30); Chloride 103 mmol/L (98-107); Creatine Kinase 94 U/L (30-135); Glucose 140 mg/dL (74-99); Lipase 305 U/L (23-300); Non-African American GFR(CKD) >90 (>60 ml/min/1.73 sqM); Potassium 4.3 mmol/L (3.5-5.1); Sodium 136 mmol/L (137-145); Total Bilirubin 0.5 mg/dL (0.2-1.3); Total Protein 7.5 g/dL (6.3-8.2)
--- NOTE | 2020-09-15 02:35 | CT ---
EXAM: CT Abdomen and Pelvis With Intravenous Contrast CLINICAL HISTORY: ITS.REASON CT Reason: pain TECHNIQUE: Axial computed tomography images of the abdomen and pelvis with intravenous contrast. CTDI is 34.37 mGy and DLP is 1648.3 mGy-cm. This CT exam was performed using one or more of the following dose reduction techniques: automated exposure control, adjustment of the mA and/or kV according to patient size, and/or use of iterative reconstruction technique. COMPARISON: CT dated 05/07/2020 FINDINGS: Lung bases: Bibasilar atelectasis. ABDOMEN: Liver: Hepatic steatosis. Gallbladder and bile ducts: Unremarkable. Pancreas: Question subtle stranding about the pancreatic head and uncinate process which may represent pancreatitis. Correlate with serum amylase and lipase. Spleen: Unremarkable. Adrenals: Unremarkable. Kidneys and ureters: Unremarkable. Stomach and bowel: Unremarkable. PELVIS: Appendix: Appendix is unremarkable. Bladder: Unremarkable. Reproductive: Unremarkable as visualized. ABDOMEN and PELVIS: Intraperitoneal space: Unremarkable. Bones/joints: No acute fracture. No dislocation. Soft tissues: Unremarkable. Vasculature: Unremarkable. Lymph nodes: Unremarkable. IMPRESSION: Question subtle stranding about the pancreatic head and uncinate process which may represent pancreatitis. Correlate with serum amylase and lipase.
[2020-09-15] MEDS ORDERED: CEPHALEXIN 500MG STARTER PACK 4 CAP BTL PO STA (02:55)
[2020-09-15 03:01] VITALS: BP 121/79; PULSE 89; RESP 18
[2020-09-15] MEDS ORDERED: HYDROmorphone 1 MG/ML 1 ML SYRINGE IVP STA (03:06)
[2020-09-16 15:13] LABS: C. trachomatis,PCR Negative (Neg,Equiv); Chlamydia trachomatis Source Urine; N. gonorrhoeae,PCR Negative (Neg,Equiv); Neisseria Source Urine
== END 2020-09-15 03:30 | disposition home or self-care (01) ==
LOC: EC 21:23
DX: N39.0 Urinary tract infection, site not specified (principal); J45.909 Unspecified asthma, uncomplicated; E11.9 Type 2 diabetes mellitus without complications; K21.9 Gastro-esophageal reflux disease without esophagitis; G43.909 Migraine, unspecified, not intractable, without status migrainosus; F32.9 Major depressive disorder, single episode, unspecified; F12.90 Cannabis use, unspecified, uncomplicated; Z79.84 Long term (current) use of oral hypoglycemic drugs
CPT/HCPCS: 36415; 80053; 82150; 82550; 83605; 83690; 85025; 81001; 87491; 87591; 87086; 76705; 74177; 99284; 96365; 96375 ×4; 96361 ×2; J2270; J2405; J0696; J1170; C9113; Q9967

== ENCOUNTER 2020-09-23 13:28 | Emergency (ER) | payer OTHER ==
[2020-09-23 13:32] VITALS: BP 108/80; PULSE 114; RESP 18; TEMP 98.5
[2020-09-23] MEDS ORDERED: HYDROmorphone 1 MG/ML 1 ML SYRINGE IVP STA ×2 (14:20→15:56)
[2020-09-23] MEDS ORDERED: diphenhydrAMINE 50 MG/ML 1 ML VIAL IVP STA (14:20)
[2020-09-23] MEDS ORDERED: ONDANSETRON 4 MG/2 ML VIAL IVP STA (14:20)
[2020-09-23] MEDS ORDERED: SODIUM CHLORIDE 0.9% 1,000 ML IV STA (14:20)
--- NOTE | 2020-09-23 14:45 | ED ---
Headache HPI - General Chief Complaint: Headache Stated Complaint: migraine Time Seen by Provider: 09/23/20 14:03 Source: patient, RN notes reviewed Mode of arrival: ambulatory Limitations: no limitations - History of Present Illness Initial Comments: 29-year-old female presented emergency department complaining of a migraine. She notes that she does have a history of chronic migraines and is taking all radical medications with no relief. She notes the headaches been going on for approximately 3 days. She notes that her sumatriptan and other medications as prescribed. She noted that she's been to the emergency room several times in the past several months for the same issue. She noted that she did have some photophobia and phonophobia. She did not appear to be in any distress while sitting in bed during exam and interview. She noted that the pain was approximately a 10 out of 10 currently with no relief. She denied any chest pain shortness of breath nausea vomiting diarrhea constipation fever fatigue chills blurry vision. - Related Data Home Medications Medication Instructions Recorded Confirmed EPINEPHrine [Epipen 2-Mike] 0.3 mg IM ONCE PRN 10/16/18 08/13/20 Omeprazole [PriLOSEC] 40 mg PO HS 03/04/20 08/13/20 ARIPiprazole [Abilify] 7.5 mg PO HS 08/13/20 08/13/20 Doxepin HCl [SINEquan] 100 mg PO DAILY 08/13/20 08/13/20 Emtrtenofov 200mg 200 mg PO DAILY 08/13/20 08/13/20 Ibuprofen [Motrin] 600 mg PO Q6H PRN 08/13/20 08/13/20 OLANZapine [ZyPREXA] 7.5 mg PO HS 08/13/20 08/13/20 PARoxetine [Paxil] 10 mg PO DAILY 08/13/20 08/13/20 Prazosin [Minipress] 5 mg PO DAILY 08/13/20 08/13/20 Propranolol [Inderal] 20 mg PO TID PRN 08/13/20 08/13/20 Raltegravir Potassium [Isentress] 400 mg PO DAILY 08/13/20 08/13/20 Topiramate [Topamax] 50 mg PO BID 08/13/20 08/13/20 busPIRone HCL 15 mg PO TID 08/13/20 08/13/20 clonazePAM [KlonoPIN] 0.5 mg PO Q7D PRN 08/13/20 08/13/20 diphenhydrAMINE [Benadryl] 50 mg PO HS 08/13/20 08/13/20 hydrOXYzine pamoate [Vistaril] 50 mg PO QID 08/13/20 08/13/20 metFORMIN HCL [metFORMIN HCL ER] 750 mg PO W/SUPPER 08/13/20 08/13/20 Previous Rx's Medication Instructions Recorded Atorvastatin [Lipitor] 40 mg PO HS 30 Days tab 07/01/20 Ondansetron Odt [Zofran Odt] 4 mg PO Q8HR PRN #10 tab 07/25/20 Benzonatate [Tessalon Perles] 100 mg PO TID PRN #15 capsule 08/23/20 Ondansetron Odt [Zofran Odt] 4 mg PO Q8HR PRN #10 tab 08/23/20 Cephalexin [Keflex] 500 mg PO Q6HR #28 cap 09/15/20 Allergies Allergy/AdvReac Type Severity Reaction Status Date / Time bee pollen Allergy Severe Anaphylaxis Verified 09/23/20 13:32 haloperidol [From Haldol] Allergy Severe QUIT Verified 09/23/20 13:32 BREATHING haloperidol lactate Allergy Severe QUIT Verified 09/23/20 13:32 [From Haldol] BREATHING latex Allergy Severe RASH-THROAT Verified 09/23/20 13:32 CLOSES tramadol Allergy Severe Nausea & Verified 09/23/20 13:32 Vomiting murrieta Allergy Anaphylaxis Verified 09/23/20 13:32 coconut Allergy Anaphylaxis Verified 09/23/20 13:32 pineapple Allergy Anaphylaxis Verified 09/23/20 13:32 prednisone Allergy THROAT Verified 09/23/20 13:32 SWELLS spider venom Allergy Swelling Verified 09/23/20 13:32 Sulfa (Sulfonamide Allergy THROAT Verified 09/23/20 13:32 Antibiotics) SWELLS venom-wasp Allergy Swelling Verified 09/23/20 13:32 venom-wasp protein Allergy Swelling Verified 09/23/20 13:32 promethazine HCl AdvReac Severe Nausea & Verified 09/23/20 13:32 [From Phenergan] Vomiting amoxicillin AdvReac Nausea & Verified 09/23/20 13:32 Vomiting ANTS Allergy Mild Anaphylaxis Uncoded 09/23/20 13:32 Review of Systems ROS Statement: Those systems with pertinent positive or pertinent negative responses have been documented in the HPI. ROS Other: All systems not noted in ROS Statement are negative. Past Medical History Past Medical History: Asthma, Diabetes Mellitus, GERD/Reflux Additional Past Medical History / Comment(s): migraines, degenerative disk disease, endometriosis, lupus, pancreatitis History of Any Multi-Drug Resistant Organisms: None Reported Past Surgical History: Orthopedic Surgery Additional Past Surgical History / Comment(s): laparoscopc surgery for endometriosis, cyst removed from left foot, EGD, Past Anesthesia/Blood Transfusion Reactions: Previous Problems w/ Anesthesia Additional Past Anesthesia/Blood Transfusion Reaction / Comment(s): hard to wake up for 48-72 hours after laparoscopic surgery-was in hosp. for 3 days Past Psychological History: Anxiety, Depression, PTSD Smoking Status: Vaper Past Alcohol Use History: Occasional Past Drug Use History: Marijuana - Past Family History Mother Family Medical History: No Reported History Additional Family Medical History / Comment(s): hx migraines Father Family Medical History: Coronary Artery Disease (CAD), Hypertension Additional Family Medical History / Comment(s): ddd, alcoholism & drug use General Exam Limitations: no limitations General appearance: alert, in no apparent distress, obese Head exam: Present: atraumatic, normocephalic, normal inspection Eye exam: Present: normal appearance, PERRL, EOMI. Absent: scleral icterus, conjunctival injection, periorbital swelling Neck exam: Present: normal inspection Respiratory exam: Present: normal lung sounds bilaterally. Absent: respiratory distress, wheezes, rales, rhonchi, stridor Cardiovascular Exam: Present: regular rate, normal rhythm, normal heart sounds. Absent: systolic murmur, diastolic murmur, rubs, gallop, clicks GI/Abdominal exam: Present: soft, normal bowel sounds. Absent: distended, tenderness, guarding, rebound, rigid Extremities exam: Present: normal inspection, full ROM, normal capillary refill. Absent: tenderness, pedal edema, joint swelling, calf tenderness Neurological exam: Present: alert, oriented X3 Psychiatric exam: Present: normal affect, normal mood Skin exam: Present: warm, dry, intact, normal color. Absent: rash Course Vital Signs 09/23/20 13:29 Temperature 98.5 F Pulse Rate 114 H Respiratory 18 Rate Blood Pressure 108/80 O2 Sat by Pulse 99 Oximetry Medical Decision Making - Medical Decision Making 29-year-old female complaining of chronic migraine with no relief from at home medications. 1 L normal saline, 50 mg of Benadryl, 1 mg of Dilaudid, 4 mg of Zofran ordered. Patient's symptoms improved after medication fluids, states she feels good enough to go home. Case discussed with Dr. Avalos, patient discharge home with follow-up to primary care. Disposition Clinical Impression: Migraine headache Disposition: HOME SELF-CARE Condition: Stable Instructions (If sedation given, give patient instructions): Migraine Headache (ED) Additional Instructions: Please return to the Emergency Department if symptoms worsen or any other concerns. Follow-up with primary care in the next 1-3 days. Continue take at home medications as prescribed. Increase oral fluids. Is patient prescribed a controlled substance at d/c from ED?: No Referrals: Katharine Rojas DO [Primary Care Provider] - 1-2 days Time of Disposition: 15:56
== END 2020-09-23 16:56 | disposition home or self-care (01) ==
LOC: EC 13:28
DX: G43.909 Migraine, unspecified, not intractable, without status migrainosus (principal); E11.9 Type 2 diabetes mellitus without complications; J45.909 Unspecified asthma, uncomplicated; K21.9 Gastro-esophageal reflux disease without esophagitis; F32.9 Major depressive disorder, single episode, unspecified; F41.9 Anxiety disorder, unspecified; F12.90 Cannabis use, unspecified, uncomplicated; E66.9 Obesity, unspecified; M32.9 Systemic lupus erythematosus, unspecified; Z79.1 Long term (current) use of non-steroidal anti-inflammatories (NSAID); Z79.84 Long term (current) use of oral hypoglycemic drugs; Z79.899 Other long term (current) drug therapy; Z68.39 Body mass index [BMI] 39.0-39.9, adult; Z63.72 Alcoholism and drug addiction in family; Z82.49 Family history of ischemic heart disease and other diseases of the circulatory system; Z88.0 Allergy status to penicillin; Z88.2 Allergy status to sulfonamides; Z88.5 Allergy status to narcotic agent; Z88.8 Allergy status to other drugs, medicaments and biological substances; Z91.040 Latex allergy status
CPT/HCPCS: 96374; 96375 ×2; 96376; 99283; 96361; J1200; J2405; J1170

== ENCOUNTER 2020-09-29 16:22 | Emergency (ER) | payer OTHER ==
[2020-09-29 16:34] VITALS: RESP 20; TEMP 98.8
[2020-09-29] MEDS ORDERED: diphenhydrAMINE 50 MG/ML 1 ML VIAL IVP STA (17:08)
[2020-09-29] MEDS ORDERED: METOCLOPRAMIDE 5 MG/ML 2 ML VIAL IVP STA (17:08)
[2020-09-29] MEDS ORDERED: KETOROLAC 15 MG/ML 1 ML VIAL IVP STA (17:08)
--- NOTE | 2020-09-29 17:10 | ED ---
Headache HPI - General Chief Complaint: Headache Stated Complaint: migraine Time Seen by Provider: 09/29/20 16:59 Source: RN notes reviewed Mode of arrival: ambulatory Limitations: no limitations - History of Present Illness Initial Comments: Patient is a 29-year-old female presents to emergency department for chronic headaches. She notes that she's been having a migraine for the past 6 days. She notes that she was recently discharged from the ER 6 days ago. She notes that her next follow-up with her neurologist is in November but needs to call jaylen jasso to see if she can move her appointment up. She notes that she is having photophobia along with the headache. She denied any new symptoms. She was in no apparent distress or pain while sitting in bed during the exam interview. She denied any chest pain shortness of breath nausea vomiting diarrhea constipation fever fatigue chills. - Related Data Home Medications Medication Instructions Recorded Confirmed EPINEPHrine [Epipen 2-Mike] 0.3 mg IM ONCE PRN 10/16/18 08/13/20 Omeprazole [PriLOSEC] 40 mg PO HS 03/04/20 08/13/20 ARIPiprazole [Abilify] 7.5 mg PO HS 08/13/20 08/13/20 Doxepin HCl [SINEquan] 100 mg PO DAILY 08/13/20 08/13/20 Emtrtenofov 200mg 200 mg PO DAILY 08/13/20 08/13/20 Ibuprofen [Motrin] 600 mg PO Q6H PRN 08/13/20 08/13/20 OLANZapine [ZyPREXA] 7.5 mg PO HS 08/13/20 08/13/20 PARoxetine [Paxil] 10 mg PO DAILY 08/13/20 08/13/20 Prazosin [Minipress] 5 mg PO DAILY 08/13/20 08/13/20 Propranolol [Inderal] 20 mg PO TID PRN 08/13/20 08/13/20 Raltegravir Potassium [Isentress] 400 mg PO DAILY 08/13/20 08/13/20 Topiramate [Topamax] 50 mg PO BID 08/13/20 08/13/20 busPIRone HCL 15 mg PO TID 08/13/20 08/13/20 clonazePAM [KlonoPIN] 0.5 mg PO Q7D PRN 08/13/20 08/13/20 diphenhydrAMINE [Benadryl] 50 mg PO HS 08/13/20 08/13/20 hydrOXYzine pamoate [Vistaril] 50 mg PO QID 08/13/20 08/13/20 metFORMIN HCL [metFORMIN HCL ER] 750 mg PO W/SUPPER 08/13/20 08/13/20 Previous Rx's Medication Instructions Recorded Atorvastatin [Lipitor] 40 mg PO HS 30 Days tab 07/01/20 Ondansetron Odt [Zofran Odt] 4 mg PO Q8HR PRN #10 tab 07/25/20 Benzonatate [Tessalon Perles] 100 mg PO TID PRN #15 capsule 08/23/20 Ondansetron Odt [Zofran Odt] 4 mg PO Q8HR PRN #10 tab 08/23/20 Cephalexin [Keflex] 500 mg PO Q6HR #28 cap 09/15/20 Allergies Allergy/AdvReac Type Severity Reaction Status Date / Time bee pollen Allergy Severe Anaphylaxis Verified 09/29/20 16:33 haloperidol [From Haldol] Allergy Severe QUIT Verified 09/29/20 16:33 BREATHING haloperidol lactate Allergy Severe QUIT Verified 09/29/20 16:33 [From Haldol] BREATHING latex Allergy Severe RASH-THROAT Verified 09/29/20 16:33 CLOSES tramadol Allergy Severe Nausea & Verified 09/29/20 16:33 Vomiting murrieta Allergy Anaphylaxis Verified 09/29/20 16:33 coconut Allergy Anaphylaxis Verified 09/29/20 16:33 pineapple Allergy Anaphylaxis Verified 09/29/20 16:33 prednisone Allergy THROAT Verified 09/29/20 16:33 SWELLS spider venom Allergy Swelling Verified 09/29/20 16:33 Sulfa (Sulfonamide Allergy THROAT Verified 09/29/20 16:33 Antibiotics) SWELLS venom-wasp Allergy Swelling Verified 09/29/20 16:33 venom-wasp protein Allergy Swelling Verified 09/29/20 16:33 promethazine HCl AdvReac Severe Nausea & Verified 09/29/20 16:33 [From Phenergan] Vomiting amoxicillin AdvReac Nausea & Verified 09/29/20 16:33 Vomiting ANTS Allergy Mild Anaphylaxis Uncoded 09/29/20 16:33 Review of Systems ROS Statement: Those systems with pertinent positive or pertinent negative responses have been documented in the HPI. ROS Other: All systems not noted in ROS Statement are negative. Past Medical History Past Medical History: Asthma, Diabetes Mellitus, GERD/Reflux Additional Past Medical History / Comment(s): migraines, degenerative disk disease, endometriosis, lupus, pancreatitis History of Any Multi-Drug Resistant Organisms: None Reported Past Surgical History: Orthopedic Surgery Additional Past Surgical History / Comment(s): laparoscopc surgery for endometriosis, cyst removed from left foot, EGD, Past Anesthesia/Blood Transfusion Reactions: Previous Problems w/ Anesthesia Additional Past Anesthesia/Blood Transfusion Reaction / Comment(s): hard to wake up for 48-72 hours after laparoscopic surgery-was in hosp. for 3 days Past Psychological History: Anxiety, Depression, PTSD Smoking Status: Vaper Past Alcohol Use History: Occasional Past Drug Use History: Marijuana - Past Family History Mother Family Medical History: No Reported History Additional Family Medical History / Comment(s): hx migraines Father Family Medical History: Coronary Artery Disease (CAD), Hypertension Additional Family Medical History / Comment(s): ddd, alcoholism & drug use General Exam Limitations: no limitations General appearance: alert, in no apparent distress Head exam: Present: atraumatic, normocephalic, normal inspection Eye exam: Present: normal appearance, PERRL, EOMI. Absent: scleral icterus, conjunctival injection, periorbital swelling Neck exam: Present: normal inspection Respiratory exam: Present: normal lung sounds bilaterally. Absent: respiratory distress, wheezes, rales, rhonchi, stridor Cardiovascular Exam: Present: regular rate, normal rhythm, normal heart sounds. Absent: systolic murmur, diastolic murmur, rubs, gallop, clicks Extremities exam: Present: normal inspection, full ROM, normal capillary refill. Absent: tenderness, pedal edema, joint swelling, calf tenderness Neurological exam: Present: alert, oriented X3 Psychiatric exam: Present: normal affect, normal mood Course Vital Signs 09/29/20 16:32 Temperature 98.8 F Pulse Rate 116 H Respiratory 20 Rate Blood Pressure 146/110 O2 Sat by Pulse 96 Oximetry Medical Decision Making - Medical Decision Making 21-year-old female complaining of chronic headache/migraine with some photophobia. 50 mg of Benadryl, 15 mg of Toradol, 4 mg of Zofran ordered. Patient was informed that she needs a follow-up with neurology and her primary care for management of chronic headaches. Case discussed with Dr. Taylor, patient can discharge home with follow-up neurology and primary care. Disposition Clinical Impression: Migraine headache Disposition: HOME SELF-CARE Condition: Stable Instructions (If sedation given, give patient instructions): Migraine Headache (ED) Additional Instructions: Please return to the Emergency Department if symptoms worsen or any other concerns. Follow-up with primary care neurologist as soon as possible. Increase oral fluids. Take at home medications as prescribed. Is patient prescribed a controlled substance at d/c from ED?: No Referrals: Katharine Rojas DO [Primary Care Provider] - 1-2 days Time of Disposition: 17:43
[2020-09-29] MEDS ORDERED: ONDANSETRON 4 MG/2 ML VIAL IM STA (17:11)
[2020-09-29 17:50] VITALS: BP 140/79; PULSE 98
== END 2020-09-29 17:50 | disposition home or self-care (01) ==
LOC: EC 16:22
DX: G43.909 Migraine, unspecified, not intractable, without status migrainosus (principal); E11.9 Type 2 diabetes mellitus without complications; J45.909 Unspecified asthma, uncomplicated; K21.9 Gastro-esophageal reflux disease without esophagitis; F32.9 Major depressive disorder, single episode, unspecified; F41.9 Anxiety disorder, unspecified; F17.290 Nicotine dependence, other tobacco product, uncomplicated; F12.90 Cannabis use, unspecified, uncomplicated; Z79.84 Long term (current) use of oral hypoglycemic drugs; Z79.1 Long term (current) use of non-steroidal anti-inflammatories (NSAID); Z79.899 Other long term (current) drug therapy; Z88.1 Allergy status to other antibiotic agents; Z88.2 Allergy status to sulfonamides; Z88.5 Allergy status to narcotic agent; Z88.8 Allergy status to other drugs, medicaments and biological substances
CPT/HCPCS: 96374 ×2; 96375 ×2; 96372 ×2; 99283 ×2; J1200; J2405; J1885

== ENCOUNTER 2020-10-02 06:49 | Emergency (ER) | payer OTHER ==
[2020-10-02 06:55] VITALS: BP 114/81; PULSE 110; RESP 18; TEMP 98
--- NOTE | 2020-10-02 07:08 | ED ---
Fall HPI - General Chief Complaint: Fall Stated Complaint: Fall Time Seen by Provider: 10/02/20 06:56 Source: patient, RN notes reviewed Mode of arrival: wheelchair Limitations: no limitations - History of Present Illness Initial Comments: This is a 29-year-old female well-known emergency from presents today chief complaint of a fall. History is unclear she states that she was in the tub around 3 states that she fell and she struck her head and complains of head and neck pain. She has chronic mild low back pain. Patient's pain she lost consciousness because she checked her phone later in the time was a few hours after. She complains of a headache that she chronic headaches. She's been receiving daily infusions of Solu-Medrol Benadryl, Reglan. She sees Dr. Whelan. She has no focal weakness denies nausea vomiting no laceration. Patient complains of mild low back pain without any bowel bladder incontinence or retention of saddle anesthesias no lower extremity paresthesias - Related Data Home Medications Medication Instructions Recorded Confirmed EPINEPHrine [Epipen 2-Mike] 0.3 mg IM ONCE PRN 10/16/18 08/13/20 Omeprazole [PriLOSEC] 40 mg PO HS 03/04/20 08/13/20 ARIPiprazole [Abilify] 7.5 mg PO HS 08/13/20 08/13/20 Doxepin HCl [SINEquan] 100 mg PO DAILY 08/13/20 08/13/20 Emtrtenofov 200mg 200 mg PO DAILY 08/13/20 08/13/20 Ibuprofen [Motrin] 600 mg PO Q6H PRN 08/13/20 08/13/20 OLANZapine [ZyPREXA] 7.5 mg PO HS 08/13/20 08/13/20 PARoxetine [Paxil] 10 mg PO DAILY 08/13/20 08/13/20 Prazosin [Minipress] 5 mg PO DAILY 08/13/20 08/13/20 Propranolol [Inderal] 20 mg PO TID PRN 08/13/20 08/13/20 Raltegravir Potassium [Isentress] 400 mg PO DAILY 08/13/20 08/13/20 Topiramate [Topamax] 50 mg PO BID 08/13/20 08/13/20 busPIRone HCL 15 mg PO TID 08/13/20 08/13/20 clonazePAM [KlonoPIN] 0.5 mg PO Q7D PRN 08/13/20 08/13/20 diphenhydrAMINE [Benadryl] 50 mg PO HS 08/13/20 08/13/20 hydrOXYzine pamoate [Vistaril] 50 mg PO QID 08/13/20 08/13/20 metFORMIN HCL [metFORMIN HCL ER] 750 mg PO W/SUPPER 08/13/20 08/13/20 Previous Rx's Medication Instructions Recorded Atorvastatin [Lipitor] 40 mg PO HS 30 Days tab 07/01/20 Ondansetron Odt [Zofran Odt] 4 mg PO Q8HR PRN #10 tab 07/25/20 Benzonatate [Tessalon Perles] 100 mg PO TID PRN #15 capsule 08/23/20 Ondansetron Odt [Zofran Odt] 4 mg PO Q8HR PRN #10 tab 08/23/20 Cephalexin [Keflex] 500 mg PO Q6HR #28 cap 09/15/20 Allergies Allergy/AdvReac Type Severity Reaction Status Date / Time bee pollen Allergy Severe Anaphylaxis Verified 10/02/20 06:55 haloperidol [From Haldol] Allergy Severe QUIT Verified 10/02/20 06:55 BREATHING haloperidol lactate Allergy Severe QUIT Verified 10/02/20 06:55 [From Haldol] BREATHING latex Allergy Severe RASH-THROAT Verified 10/02/20 06:55 CLOSES tramadol Allergy Severe Nausea & Verified 10/02/20 06:55 Vomiting murrieta Allergy Anaphylaxis Verified 10/02/20 06:55 coconut Allergy Anaphylaxis Verified 10/02/20 06:55 pineapple Allergy Anaphylaxis Verified 10/02/20 06:55 prednisone Allergy THROAT Verified 10/02/20 06:55 SWELLS spider venom Allergy Swelling Verified 10/02/20 06:55 Sulfa (Sulfonamide Allergy THROAT Verified 10/02/20 06:55 Antibiotics) SWELLS venom-wasp Allergy Swelling Verified 10/02/20 06:55 venom-wasp protein Allergy Swelling Verified 10/02/20 06:55 promethazine HCl AdvReac Severe Nausea & Verified 10/02/20 06:55 [From Phenergan] Vomiting amoxicillin AdvReac Nausea & Verified 10/02/20 06:55 Vomiting ANTS Allergy Mild Anaphylaxis Uncoded 10/02/20 06:55 Review of Systems ROS Statement: Those systems with pertinent positive or pertinent negative responses have been documented in the HPI. ROS Other: All systems not noted in ROS Statement are negative. Past Medical History Past Medical History: Asthma, Diabetes Mellitus, GERD/Reflux Additional Past Medical History / Comment(s): migraines, degenerative disk disease, endometriosis, lupus, pancreatitis History of Any Multi-Drug Resistant Organisms: None Reported Past Surgical History: Orthopedic Surgery Additional Past Surgical History / Comment(s): laparoscopc surgery for endometriosis, cyst removed from left foot, EGD, Past Anesthesia/Blood Transfusion Reactions: Previous Problems w/ Anesthesia Additional Past Anesthesia/Blood Transfusion Reaction / Comment(s): hard to wake up for 48-72 hours after laparoscopic surgery-was in hosp. for 3 days Past Psychological History: Anxiety, Depression, PTSD Smoking Status: Vaper Past Alcohol Use History: Occasional Past Drug Use History: Marijuana - Past Family History Mother Family Medical History: No Reported History Additional Family Medical History / Comment(s): hx migraines Father Family Medical History: Coronary Artery Disease (CAD), Hypertension Additional Family Medical History / Comment(s): ddd, alcoholism & drug use General Exam General appearance: alert, in no apparent distress Head exam: Present: atraumatic, normocephalic, normal inspection, other (There is no evidence of contusion, hematoma, abrasion or laceration) Eye exam: Present: normal appearance, PERRL, EOMI. Absent: scleral icterus, conjunctival injection, periorbital swelling ENT exam: Present: normal exam, normal oropharynx, mucous membranes moist Neck exam: Present: normal inspection, tenderness, full ROM. Absent: meningismus, lymphadenopathy Respiratory exam: Present: normal lung sounds bilaterally. Absent: respiratory distress, wheezes, rales, rhonchi, stridor Cardiovascular Exam: Present: regular rate, normal rhythm, normal heart sounds. Absent: systolic murmur, diastolic murmur, rubs, gallop, clicks Extremities exam: Present: normal inspection, full ROM, normal capillary refill. Absent: tenderness, pedal edema, joint swelling, calf tenderness Back exam: Present: normal inspection, full ROM, tenderness (Mild tenderness to the lumbar region), paraspinal tenderness. Absent: vertebral tenderness Neurological exam: Present: alert, oriented X3, CN II-XII intact, reflexes normal. Absent: motor sensory deficit Course Vital Signs 10/02/20 06:52 Temperature 98 F Pulse Rate 110 H Respiratory 18 Rate Blood Pressure 114/81 O2 Sat by Pulse 98 Oximetry - Reevaluation(s) Reevaluation #1: 10/02/20 07:08 Patient declined x-rays of her lumbar spine Medical Decision Making - Medical Decision Making CT is unremarkable. Patient is chronically intact. Patient refuses lumbar x- rays will be discharged stable condition. Disposition Clinical Impression: Fall, Head injury, Neck pain Disposition: HOME SELF-CARE Condition: Stable Instructions (If sedation given, give patient instructions): Head Injury (ED) Additional Instructions: Please return to the Emergency Department if symptoms worsen or any other concerns. Is patient prescribed a controlled substance at d/c from ED?: No Referrals: None,Stated [Primary Care Provider] - 1-2 days Time of Disposition: 08:13
--- NOTE | 2020-10-02 07:51 | CT ---
EXAMINATION TYPE: CT brain seine wo con DATE OF EXAM: 10/02/2020 COMPARISON: 08/16/2020 HISTORY: Fall CT DLP: 1582.8 mGycm Automated exposure control for dose reduction was used. TECHNIQUE: CT scan of the head and cervical spine are performed without contrast. FINDINGS: There is no acute intracranial hemorrhage, mass effect, or midline shift identified. The ventricles and sulci are within normal limits in size. The globes are intact and the visualized sin uses are clear. Cervical spine is visualized in its entirety from C1 through upper thoracic levels and demonstrates s atisfactory alignment without evidence of acute fracture or dislocation. Prevertebral soft tissue ap pears within normal limits. The C1-C2 articulation is unremarkable. IMPRESSION: 1. There is no acute fracture or dislocation evident in the cervical spine. 2. No acute intracranial hemorrhage, mass effect, or midline shift is seen.
== END 2020-10-02 09:07 | disposition home or self-care (01) ==
LOC: EC 06:49
DX: S09.90XA Unspecified injury of head, initial encounter (principal); M54.2 Cervicalgia; E11.9 Type 2 diabetes mellitus without complications; F32.9 Major depressive disorder, single episode, unspecified; J45.909 Unspecified asthma, uncomplicated; F12.90 Cannabis use, unspecified, uncomplicated; K21.9 Gastro-esophageal reflux disease without esophagitis; F41.9 Anxiety disorder, unspecified; Z79.84 Long term (current) use of oral hypoglycemic drugs; W19.XXXA Unspecified fall, initial encounter
CPT/HCPCS: 70450; 72125; 99284

== ENCOUNTER 2020-10-09 01:36 | Emergency (ER) | payer OTHER ==
[2020-10-09] MEDS ORDERED: SODIUM CHLORIDE 0.9% 1,000 ML IV STA (01:46)
[2020-10-09] MEDS ORDERED: METOCLOPRAMIDE 5 MG/ML 2 ML VIAL IVP STA (02:14)
[2020-10-09] MEDS ORDERED: diphenhydrAMINE 50 MG/ML 1 ML VIAL IVP STA (02:14)
--- NOTE | 2020-10-09 02:16 | ED ---
Abdominal Pain HPI <ShalinileviBenjie - Last Filed: 10/09/20 05:33> - General Source: patient, RN notes reviewed Mode of arrival: ambulatory Limitations: no limitations <Danny Espinoza - Last Filed: 10/11/20 11:43> - General Chief Complaint: Abdominal Pain Stated Complaint: Abdominal Pain Time Seen by Provider: 10/09/20 01:46 - History of Present Illness Initial Comments: This is a 29-year-old female well-known to the emergency Department presents today chief complaint of abdominal pain. She states is primarily right upper quadrant. Patient states she was discharged from [facility] yesterday after hospitalization for acute pancreatitis. Patient states she had issues with past and they're unsure what reasons. She states that she started vomiting over 12 hours ago states that has not stopped. She complains of pain no hematemesis copremesis no significant diarrhea constipation. (Danny Espinoza) - Related Data Home Medications Medication Instructions Recorded Confirmed EPINEPHrine [Epipen 2-Mike] 0.3 mg IM ONCE PRN 10/16/18 08/13/20 Omeprazole [PriLOSEC] 40 mg PO HS 03/04/20 08/13/20 ARIPiprazole [Abilify] 7.5 mg PO HS 08/13/20 08/13/20 Doxepin HCl [SINEquan] 100 mg PO DAILY 08/13/20 08/13/20 Emtrtenofov 200mg 200 mg PO DAILY 08/13/20 08/13/20 Ibuprofen [Motrin] 600 mg PO Q6H PRN 08/13/20 08/13/20 OLANZapine [ZyPREXA] 7.5 mg PO HS 08/13/20 08/13/20 PARoxetine [Paxil] 10 mg PO DAILY 08/13/20 08/13/20 Prazosin [Minipress] 5 mg PO DAILY 08/13/20 08/13/20 Propranolol [Inderal] 20 mg PO TID PRN 08/13/20 08/13/20 Raltegravir Potassium [Isentress] 400 mg PO DAILY 08/13/20 08/13/20 Topiramate [Topamax] 50 mg PO BID 08/13/20 08/13/20 busPIRone HCL 15 mg PO TID 08/13/20 08/13/20 clonazePAM [KlonoPIN] 0.5 mg PO Q7D PRN 08/13/20 08/13/20 diphenhydrAMINE [Benadryl] 50 mg PO HS 08/13/20 08/13/20 hydrOXYzine pamoate [Vistaril] 50 mg PO QID 08/13/20 08/13/20 metFORMIN HCL [metFORMIN HCL ER] 750 mg PO W/SUPPER 08/13/20 08/13/20 Previous Rx's Medication Instructions Recorded Atorvastatin [Lipitor] 40 mg PO HS 30 Days tab 07/01/20 Ondansetron Odt [Zofran Odt] 4 mg PO Q8HR PRN #10 tab 07/25/20 Benzonatate [Tessalon Perles] 100 mg PO TID PRN #15 capsule 08/23/20 Ondansetron Odt [Zofran Odt] 4 mg PO Q8HR PRN #10 tab 08/23/20 Cephalexin [Keflex] 500 mg PO Q6HR #28 cap 09/15/20 Nitrofurantoin Monohyd/M-Cryst 100 mg PO Q12HR #6 cap 10/09/20 [Macrobid] Allergies Allergy/AdvReac Type Severity Reaction Status Date / Time bee pollen Allergy Severe Anaphylaxis Verified 10/09/20 01:41 haloperidol [From Haldol] Allergy Severe QUIT Verified 10/09/20 01:41 BREATHING haloperidol lactate Allergy Severe QUIT Verified 10/09/20 01:41 [From Haldol] BREATHING latex Allergy Severe RASH-THROAT Verified 10/09/20 01:41 CLOSES tramadol Allergy Severe Nausea & Verified 10/09/20 01:41 Vomiting murrieta Allergy Anaphylaxis Verified 10/09/20 01:41 coconut Allergy Anaphylaxis Verified 10/09/20 01:41 pineapple Allergy Anaphylaxis Verified 10/09/20 01:41 prednisone Allergy THROAT Verified 10/09/20 01:41 SWELLS spider venom Allergy Swelling Verified 10/09/20 01:41 Sulfa (Sulfonamide Allergy THROAT Verified 10/09/20 01:41 Antibiotics) SWELLS venom-wasp Allergy Swelling Verified 10/09/20 01:41 venom-wasp protein Allergy Swelling Verified 10/09/20 01:41 promethazine HCl AdvReac Severe Nausea & Verified 10/09/20 01:41 [From Phenergan] Vomiting amoxicillin AdvReac Nausea & Verified 10/09/20 01:41 Vomiting ANTS Allergy Mild Anaphylaxis Uncoded 10/09/20 01:41 Review of Systems ROS Other: All systems not noted in ROS Statement are negative. <Benjie Vasquez - Last Filed: 10/09/20 05:33> ROS Other: All systems not noted in ROS Statement are negative. <Danny Espinoza - Last Filed: 10/11/20 11:43> ROS Statement: Those systems with pertinent positive or pertinent negative responses have been documented in the HPI. Past Medical History Past Medical History: Asthma, Diabetes Mellitus, GERD/Reflux Additional Past Medical History / Comment(s): migraines, degenerative disk disease, endometriosis, lupus, pancreatitis History of Any Multi-Drug Resistant Organisms: None Reported Past Surgical History: Orthopedic Surgery Additional Past Surgical History / Comment(s): laparoscopc surgery for endometriosis, cyst removed from left foot, EGD, Past Anesthesia/Blood Transfusion Reactions: Previous Problems w/ Anesthesia Additional Past Anesthesia/Blood Transfusion Reaction / Comment(s): hard to wake up for 48-72 hours after laparoscopic surgery-was in hosp. for 3 days Past Psychological History: Anxiety, Depression, PTSD Smoking Status: Vaper Past Alcohol Use History: Occasional Past Drug Use History: Marijuana - Past Family History Mother Family Medical History: No Reported History Additional Family Medical History / Comment(s): hx migraines Father Family Medical History: Coronary Artery Disease (CAD), Hypertension Additional Family Medical History / Comment(s): ddd, alcoholism & drug use <Danny Espinoza - Last Filed: 10/11/20 11:43> General Exam Limitations: no limitations General appearance: alert, in no apparent distress Head exam: Present: atraumatic, normocephalic, normal inspection Neck exam: Present: normal inspection. Absent: tenderness, meningismus, lymphadenopathy Respiratory exam: Present: normal lung sounds bilaterally. Absent: respiratory distress, wheezes, rales, rhonchi, stridor Cardiovascular Exam: Present: normal rhythm, tachycardia, normal heart sounds. Absent: systolic murmur, diastolic murmur, rubs, gallop, clicks GI/Abdominal exam: Present: soft, tenderness, normal bowel sounds. Absent: distended, guarding, rebound, rigid Back exam: Absent: CVA tenderness (R), CVA tenderness (L) Skin exam: Present: warm, dry, intact, normal color. Absent: rash <Danny Espinoza - Last Filed: 10/11/20 11:43> Course Vital Signs 10/09/20 10/09/20 10/09/20 01:38 02:29 03:00 Temperature 97.5 F L Pulse Rate 130 H 88 84 Respiratory 18 20 18 Rate Blood Pressure 107/82 90/59 99/62 O2 Sat by Pulse 96 94 L 98 Oximetry 10/09/20 10/09/20 10/09/20 04:00 05:49 06:11 Temperature Pulse Rate 88 82 65 Respiratory 20 18 18 Rate Blood Pressure 93/58 82/54 93/67 O2 Sat by Pulse 95 95 92 L Oximetry 10/09/20 10/09/20 06:14 08:07 Temperature 97.1 F L 98.2 F Pulse Rate 78 Respiratory 16 Rate Blood Pressure 128/78 O2 Sat by Pulse 98 Oximetry Medical Decision Making - Lab Data Result diagrams: 10/09/20 01:59 10/09/20 01:59 <Benjie Vasquez - Last Filed: 10/09/20 05:33> - Lab Data Result diagrams: 10/09/20 01:59 10/09/20 01:59 <Danny Espinoza - Last Filed: 10/11/20 11:43> - Lab Data Lab Results 10/09/20 10/09/20 10/09/20 Range/Units 01:59 01:59 04:30 WBC 8.8 (3.8-10.6) k/uL RBC 4.62 (3.80-5.40) m/uL Hgb 14.2 (11.4-16.0) gm/dL Hct 41.1 (34.0-46.0) % MCV 88.9 (80.0-100.0) fL MCH 30.8 (25.0-35.0) pg MCHC 34.7 (31.0-37.0) g/dL RDW 14.0 (11.5-15.5) % Plt Count 277 (150-450) k/uL MPV 7.3 Neutrophils % 59 % Lymphocytes % 33 % Monocytes % 5 % Eosinophils % 1 % Basophils % 0 % Neutrophils # 5.2 (1.3-7.7) k/uL Lymphocytes # 2.9 (1.0-4.8) k/uL Monocytes # 0.4 (0-1.0) k/uL Eosinophils # 0.1 (0-0.7) k/uL Basophils # 0.0 (0-0.2) k/uL Sodium 134 L (137-145) mmol/L Potassium 4.2 (3.5-5.1) mmol/L Chloride 103 (98-107) mmol/L Carbon Dioxide 22 (22-30) mmol/L Anion Gap 9 mmol/L BUN 7 (7-17) mg/dL Creatinine 0.94 (0.52-1.04) mg/dL Est GFR (CKD-EPI)AfAm >90 (>60 ml/min/1.73 sqM) Est GFR (CKD-EPI)NonAf 83 (>60 ml/min/1.73 sqM) Glucose 305 H (74-99) mg/dL POC Glucose (mg/dL) (75-99) mg/dL POC Glu Assault Boat Coxswain ID Calcium 10.8 H (8.4-10.2) mg/dL Total Bilirubin 0.5 (0.2-1.3) mg/dL AST 39 H (14-36) U/L ALT 49 H (4-34) U/L Alkaline Phosphatase 76 (38-126) U/L Total Protein 7.1 (6.3-8.2) g/dL Albumin 4.0 (3.5-5.0) g/dL Lipase 236 (23-300) U/L Urine Color Yellow Urine Appearance Cloudy H (Clear) Urine pH 6.5 (5.0-8.0) Ur Specific Hartley 1.021 (1.001-1.035) Urine Protein Trace H (Negative) Urine Glucose (UA) 2+ H (Negative) Urine Ketones 1+ H (Negative) Urine Blood Negative (Negative) Urine Nitrite Negative (Negative) Urine Bilirubin Negative (Negative) Urine Urobilinogen <2.0 (<2.0) mg/dL Ur Leukocyte Esterase Moderate H (Negative) Urine RBC 2 (0-5) /hpf Urine WBC 34 H (0-5) /hpf Ur Squamous Epith Cells 4 (0-4) /hpf Urine Bacteria Moderate H (None) /hpf Hyaline Casts 11 H (0-2) /lpf Urine Mucus Few H (None) /hpf Urine HCG, Qual (Not Detectd) 10/09/20 10/09/20 Range/Units 04:30 05:48 WBC (3.8-10.6) k/uL RBC (3.80-5.40) m/uL Hgb (11.4-16.0) gm/dL Hct (34.0-46.0) % MCV (80.0-100.0) fL MCH (25.0-35.0) pg MCHC (31.0-37.0) g/dL RDW (11.5-15.5) % Plt Count (150-450) k/uL MPV Neutrophils % % Lymphocytes % % Monocytes % % Eosinophils % % Basophils % % Neutrophils # (1.3-7.7) k/uL Lymphocytes # (1.0-4.8) k/uL Monocytes # (0-1.0) k/uL Eosinophils # (0-0.7) k/uL Basophils # (0-0.2) k/uL Sodium (137-145) mmol/L Potassium (3.5-5.1) mmol/L Chloride (98-107) mmol/L Carbon Dioxide (22-30) mmol/L Anion Gap mmol/L BUN (7-17) mg/dL Creatinine (0.52-1.04) mg/dL Est GFR (CKD-EPI)AfAm (>60 ml/min/1.73 sqM) Est GFR (CKD-EPI)NonAf (>60 ml/min/1.73 sqM) Glucose (74-99) mg/dL POC Glucose (mg/dL) 211 H (75-99) mg/dL POC Glu Assault Boat Coxswain ID Hirgo, Admon Calcium (8.4-10.2) mg/dL Total Bilirubin (0.2-1.3) mg/dL AST (14-36) U/L ALT (4-34) U/L Alkaline Phosphatase (38-126) U/L Total Protein (6.3-8.2) g/dL Albumin (3.5-5.0) g/dL Lipase (23-300) U/L Urine Color Urine Appearance (Clear) Urine pH (5.0-8.0) Ur Specific Hartley (1.001-1.035) Urine Protein (Negative) Urine Glucose (UA) (Negative) Urine Ketones (Negative) Urine Blood (Negative) Urine Nitrite (Negative) Urine Bilirubin (Negative) Urine Urobilinogen (<2.0) mg/dL Ur Leukocyte Esterase (Negative) Urine RBC (0-5) /hpf Urine WBC (0-5) /hpf Ur Squamous Epith Cells (0-4) /hpf Urine Bacteria (None) /hpf Hyaline Casts (0-2) /lpf Urine Mucus (None) /hpf Urine HCG, Qual Not Detected (Not Detectd) Disposition Is patient prescribed a controlled substance at d/c from ED?: No <Benjie Vasquez - Last Filed: 10/09/20 05:33> Is patient prescribed a controlled substance at d/c from ED?: No <Danny Espinoza - Last Filed: 10/11/20 11:43> Clinical Impression: Abdominal pain, UTI (urinary tract infection), Hyperglycemia Disposition: HOME SELF-CARE Condition: Good Instructions (If sedation given, give patient instructions): Urinary Tract Infection in Women (ED), Diabetic Hyperglycemia (ED) Prescriptions: Nitrofurantoin Monohyd/M-Cryst [Macrobid] 100 mg PO Q12HR #6 cap Referrals: Jorje Mayes MD [Primary Care Provider] - 1-2 days
[2020-10-09 02:31] LABS: Basophils % (A) 0 %; Eosinophils # (A) 0.1 k/uL (0-0.7); Eosinophils % (A) 1 %; HCT 41.1 % (34.0-46.0); HGB 14.2 gm/dL (11.4-16.0); Lymphocytes # (A) 2.9 k/uL (1.0-4.8); Lymphocytes % (A) 33 %; MCH 30.8 pg (25.0-35.0); MCHC 34.7 g/dL (31.0-37.0); MCV 88.9 fL (80.0-100.0); Mean Platelet Volume 7.3; Monocytes # (A) 0.4 k/uL (0-1.0); Monocytes % (A) 5 %; Neutrophils # (A) 5.2 k/uL (1.3-7.7); Neutrophils % (A) 59 %; Platelet Count 277 k/uL (150-450); RBC 4.62 m/uL (3.80-5.40); WBC 8.8 k/uL (3.8-10.6)
[2020-10-09 02:42] LABS: Chloride 103 mmol/L (98-107); Glucose 305 mg/dL (74-99); Total Protein 7.1 g/dL (6.3-8.2)
[2020-10-09 02:43] LABS: ALT 49 U/L (4-34); AST 39 U/L (14-36); African American GFR (CKD) >90 (>60 ml/min/1.73 sqM); Alkaline Phosphatase 76 U/L (38-126); Anion Gap 9 mmol/L; Blood Urea Nitrogen 7 mg/dL (7-17); Calcium 10.8 mg/dL (8.4-10.2); Carbon Dioxide 22 mmol/L (22-30); Lipase 236 U/L (23-300); Non-African American GFR(CKD) 83 (>60 ml/min/1.73 sqM); Sodium 134 mmol/L (137-145); Total Bilirubin 0.5 mg/dL (0.2-1.3)
[2020-10-09 03:13] LABS: Potassium 4.2 mmol/L (3.5-5.1)
[2020-10-09] MEDS ORDERED: INSULIN REGULAR 100 UNIT/ML VIAL SQ STA (04:29)
[2020-10-09 04:52] LABS: Appearance,Urine Cloudy (Clear); Bacteria,Urine Moderate /hpf; Bilirubin,Urine Negative (Negative); Blood,Urine Negative (Negative); Color,Urine Yellow; Glucose,Urine (UA) 2+ (Negative); Hyaline Casts,Urine 11 /lpf (0-2); Ketones,Urine 1+ (Negative); Leukocyte Esterase,Urine Moderate (Negative); Mucus,Urine Few /hpf; Nitrite,Urine Negative (Negative); PH, Urine 6.5 (5.0-8.0); Protein,Urine Trace (Negative); RBC,Urine 2 /hpf (0-5); Specific Gravity,Urine 1.021 (1.001-1.035); Squamous Epithelial Cell,Urine 4 /hpf (0-4); Urobilinogen,Urine <2.0 mg/dL (<2.0); WBC,Urine 34 /hpf (0-5)
[2020-10-09] MEDS ORDERED: NITROFURANTOIN MONOHYD/M-CRYST 100 MG CAP PO STA (05:30)
[2020-10-09 05:49] LABS: Glucose,Whole Blood 211 mg/dL (75-99)
[2020-10-09] MEDS ORDERED: KETOROLAC 15 MG/ML 1 ML VIAL IVP STA (06:03)
[2020-10-09] MEDS ORDERED: SODIUM CHLORIDE 0.9% 2,000 ML IV ONE (06:25)
[2020-10-09 08:08] VITALS: BP 128/78; PULSE 78; RESP 16; TEMP 98.2
== END 2020-10-09 08:07 | disposition home or self-care (01) ==
LOC: EC 01:36
DX: N39.0 Urinary tract infection, site not specified (principal); J45.909 Unspecified asthma, uncomplicated; E11.65 Type 2 diabetes mellitus with hyperglycemia; K21.9 Gastro-esophageal reflux disease without esophagitis; F32.9 Major depressive disorder, single episode, unspecified
CPT/HCPCS: 36415; 80053; 81001; 81025; 83690; 85025; 87086; 96361; 96374; 96375; 99284

== ENCOUNTER 2020-10-13 23:32 | Emergency (ER) | payer OTHER ==
[2020-10-13 23:52] VITALS: TEMP 98.3
[2020-10-14] MEDS ORDERED: METOCLOPRAMIDE 5 MG/ML 2 ML VIAL IVP STA (00:11)
[2020-10-14] MEDS ORDERED: diphenhydrAMINE 50 MG/ML 1 ML VIAL IVP STA (00:11)
[2020-10-14] MEDS ORDERED: SODIUM CHLORIDE 0.9% 1,000 ML IV ONE (00:11)
[2020-10-14] MEDS ORDERED: KETOROLAC 15 MG/ML 1 ML VIAL IVP STA (00:11)
[2020-10-14] MEDS ORDERED: ONDANSETRON 4 MG/2 ML VIAL IVP STA (01:40)
--- NOTE | 2020-10-14 01:41 | ED ---
Headache HPI - General Chief Complaint: Headache Stated Complaint: Headache, vomiting Time Seen by Provider: 10/13/20 23:57 Mode of arrival: ambulatory Limitations: no limitations - History of Present Illness Initial Comments: 29-year-old female patient presents to the emergency department today for evaluation of migraine headache. States symptoms started earlier today and has been worsening. States she did take Zofran earlier in the day, a migraine medication, and ibuprofen this evening without relief. Patient does have light sensitivity sound sensitivity. Reports nausea and vomiting. Does have history of migraines, states symptoms are similar to her previous migraine pattern. Denies any fever or chills per denies recent head injury. Denies numbness, tingling, weakness to her extremities. - Related Data Home Medications Medication Instructions Recorded Confirmed EPINEPHrine [Epipen 2-Mike] 0.3 mg IM ONCE PRN 10/16/18 08/13/20 Omeprazole [PriLOSEC] 40 mg PO HS 03/04/20 08/13/20 ARIPiprazole [Abilify] 7.5 mg PO HS 08/13/20 08/13/20 Doxepin HCl [SINEquan] 100 mg PO DAILY 08/13/20 08/13/20 Emtrtenofov 200mg 200 mg PO DAILY 08/13/20 08/13/20 Ibuprofen [Motrin] 600 mg PO Q6H PRN 08/13/20 08/13/20 OLANZapine [ZyPREXA] 7.5 mg PO HS 08/13/20 08/13/20 PARoxetine [Paxil] 10 mg PO DAILY 08/13/20 08/13/20 Prazosin [Minipress] 5 mg PO DAILY 08/13/20 08/13/20 Propranolol [Inderal] 20 mg PO TID PRN 08/13/20 08/13/20 Raltegravir Potassium [Isentress] 400 mg PO DAILY 08/13/20 08/13/20 Topiramate [Topamax] 50 mg PO BID 08/13/20 08/13/20 busPIRone HCL 15 mg PO TID 08/13/20 08/13/20 clonazePAM [KlonoPIN] 0.5 mg PO Q7D PRN 08/13/20 08/13/20 diphenhydrAMINE [Benadryl] 50 mg PO HS 08/13/20 08/13/20 hydrOXYzine pamoate [Vistaril] 50 mg PO QID 08/13/20 08/13/20 metFORMIN HCL [metFORMIN HCL ER] 750 mg PO W/SUPPER 08/13/20 08/13/20 Previous Rx's Medication Instructions Recorded Atorvastatin [Lipitor] 40 mg PO HS 30 Days tab 07/01/20 Ondansetron Odt [Zofran Odt] 4 mg PO Q8HR PRN #10 tab 07/25/20 Benzonatate [Tessalon Perles] 100 mg PO TID PRN #15 capsule 08/23/20 Ondansetron Odt [Zofran Odt] 4 mg PO Q8HR PRN #10 tab 08/23/20 Cephalexin [Keflex] 500 mg PO Q6HR #28 cap 09/15/20 Nitrofurantoin Monohyd/M-Cryst 100 mg PO Q12HR #6 cap 10/09/20 [Macrobid] Allergies Allergy/AdvReac Type Severity Reaction Status Date / Time bee pollen Allergy Severe Anaphylaxis Verified 10/13/20 23:52 haloperidol [From Haldol] Allergy Severe QUIT Verified 10/13/20 23:52 BREATHING haloperidol lactate Allergy Severe QUIT Verified 10/13/20 23:52 [From Haldol] BREATHING latex Allergy Severe RASH-THROAT Verified 10/13/20 23:52 CLOSES tramadol Allergy Severe Nausea & Verified 10/13/20 23:52 Vomiting murrieta Allergy Anaphylaxis Verified 10/13/20 23:52 coconut Allergy Anaphylaxis Verified 10/13/20 23:52 pineapple Allergy Anaphylaxis Verified 10/13/20 23:52 prednisone Allergy THROAT Verified 10/13/20 23:52 SWELLS spider venom Allergy Swelling Verified 10/13/20 23:52 Sulfa (Sulfonamide Allergy THROAT Verified 10/13/20 23:52 Antibiotics) SWELLS venom-wasp Allergy Swelling Verified 10/13/20 23:52 venom-wasp protein Allergy Swelling Verified 10/13/20 23:52 promethazine HCl AdvReac Severe Nausea & Verified 10/13/20 23:52 [From Phenergan] Vomiting amoxicillin AdvReac Nausea & Verified 10/13/20 23:52 Vomiting ANTS Allergy Mild Anaphylaxis Uncoded 10/13/20 23:52 Review of Systems ROS Statement: Those systems with pertinent positive or pertinent negative responses have been documented in the HPI. ROS Other: All systems not noted in ROS Statement are negative. Past Medical History Past Medical History: Asthma, Diabetes Mellitus, GERD/Reflux Additional Past Medical History / Comment(s): migraines, degenerative disk disease, endometriosis, lupus, pancreatitis History of Any Multi-Drug Resistant Organisms: None Reported Past Surgical History: Orthopedic Surgery Additional Past Surgical History / Comment(s): laparoscopc surgery for endometriosis, cyst removed from left foot, EGD, Past Anesthesia/Blood Transfusion Reactions: Previous Problems w/ Anesthesia Additional Past Anesthesia/Blood Transfusion Reaction / Comment(s): hard to wake up for 48-72 hours after laparoscopic surgery-was in hosp. for 3 days Past Psychological History: Anxiety, Depression, PTSD Smoking Status: Vaper Past Alcohol Use History: Occasional Past Drug Use History: Marijuana - Past Family History Mother Family Medical History: No Reported History Additional Family Medical History / Comment(s): hx migraines Father Family Medical History: Coronary Artery Disease (CAD), Hypertension Additional Family Medical History / Comment(s): ddd, alcoholism & drug use General Exam Limitations: no limitations General appearance: alert, in no apparent distress, other (This is a well- developed, well-nourished adult female patient in mild distress related to pain. Vital signs upon presentation are temperature 98.3F, pulse 131, respirations 20, blood pressure 139/88, pulse ox 97% on room air.) Eye exam: Present: normal appearance, PERRL, EOMI. Absent: scleral icterus, conjunctival injection, nystagmus, periorbital swelling ENT exam: Present: normal exam, normal oropharynx, mucous membranes moist Respiratory exam: Present: normal lung sounds bilaterally. Absent: respiratory distress, wheezes, rales, rhonchi, stridor Cardiovascular Exam: Present: regular rate, normal rhythm, normal heart sounds. Absent: systolic murmur, diastolic murmur, rubs, gallop, clicks GI/Abdominal exam: Present: soft, normal bowel sounds. Absent: distended, tenderness, guarding, rebound, rigid Neurological exam: Present: alert, oriented X3, CN II-XII intact Expanded Speech: Present: fluid speech Motor strength exam: RUE: 5, LUE: 5, RLE: 5, LLE: 5 Psychiatric exam: Present: normal affect, normal mood Skin exam: Present: warm, dry, intact, normal color. Absent: rash Course Vital Signs 10/13/20 10/14/20 23:50 01:54 Temperature 98.3 F Pulse Rate 131 H 110 H Respiratory 20 18 Rate Blood Pressure 139/88 125/89 O2 Sat by Pulse 97 98 Oximetry Medical Decision Making - Medical Decision Making 29-year-old female patient presented for evaluation of migraine headache. Physical examination is unremarkable. She is neurologically intact with no focal deficits. IV was started, she is given IV fluids, pain medication, nausea medication. Upon reevaluation states she does have improvement of symptoms. She is given remaining fluid bolus, started to have increased nausea, was given additional dose of nausea medication. She'll be discharged follow up with her primary care physician for recheck in 1-2 days. Return parameters discussed in detail. She verbalizes understanding and agrees with this plan. Case discussed with my attending Dr. Vasquez. Disposition Clinical Impression: Migraine headache Disposition: HOME SELF-CARE Condition: Good Instructions (If sedation given, give patient instructions): Migraine Headache (ED) Additional Instructions: Follow-up with the primary care physician for recheck in 1-2 days. Return for any new, worsening, or concerning symptoms. Is patient prescribed a controlled substance at d/c from ED?: No Referrals: Jorje Mayes MD [Primary Care Provider] - 1-2 days Time of Disposition: 01:41
[2020-10-14 01:56] VITALS: BP 125/89; PULSE 110; RESP 18
== END 2020-10-14 01:57 | disposition home or self-care (01) ==
LOC: EC 23:32
DX: G43.909 Migraine, unspecified, not intractable, without status migrainosus (principal); J45.909 Unspecified asthma, uncomplicated; E11.9 Type 2 diabetes mellitus without complications; K21.9 Gastro-esophageal reflux disease without esophagitis; F32.9 Major depressive disorder, single episode, unspecified; F12.90 Cannabis use, unspecified, uncomplicated; F41.9 Anxiety disorder, unspecified
CPT/HCPCS: 99283; 96374; 96375 ×3; 96361; J1200; J2765; J2405; J1885

== ENCOUNTER 2020-10-19 12:43 | Emergency (ER) | payer OTHER ==
[2020-10-19 12:49] VITALS: BP 121/86; PULSE 72; RESP 18; TEMP 98.2
[2020-10-19] MEDS ORDERED: KETOROLAC 15 MG/ML 1 ML VIAL IM STA (13:12)
--- NOTE | 2020-10-19 13:34 | ED ---
General Adult HPI - General Chief complaint: Fall Stated complaint: Fall/Head/back injury Time Seen by Provider: 10/19/20 12:45 Source: patient, RN notes reviewed, old records reviewed Mode of arrival: wheelchair Limitations: no limitations - History of Present Illness Initial comments: This is a 30-year-old female presents who presents emergency department stating that she has lower back pain and a little left-sided neck pain after she fell down a few steps home. Patient denies hitting her head patient denies any numbness weakness of her extremities. Patient denies any decreased range of motion of extremities. Patient denies any chest pain abdominal pain. Patient denies any numbness weakness of her legs. - Related Data Home Medications Medication Instructions Recorded Confirmed EPINEPHrine [Epipen 2-Mike] 0.3 mg IM ONCE PRN 10/16/18 08/13/20 Omeprazole [PriLOSEC] 40 mg PO HS 03/04/20 08/13/20 ARIPiprazole [Abilify] 7.5 mg PO HS 08/13/20 08/13/20 Doxepin HCl [SINEquan] 100 mg PO DAILY 08/13/20 08/13/20 Emtrtenofov 200mg 200 mg PO DAILY 08/13/20 08/13/20 Ibuprofen [Motrin] 600 mg PO Q6H PRN 08/13/20 08/13/20 OLANZapine [ZyPREXA] 7.5 mg PO HS 08/13/20 08/13/20 PARoxetine [Paxil] 10 mg PO DAILY 08/13/20 08/13/20 Prazosin [Minipress] 5 mg PO DAILY 08/13/20 08/13/20 Propranolol [Inderal] 20 mg PO TID PRN 08/13/20 08/13/20 Raltegravir Potassium [Isentress] 400 mg PO DAILY 08/13/20 08/13/20 Topiramate [Topamax] 50 mg PO BID 08/13/20 08/13/20 busPIRone HCL 15 mg PO TID 08/13/20 08/13/20 clonazePAM [KlonoPIN] 0.5 mg PO Q7D PRN 08/13/20 08/13/20 diphenhydrAMINE [Benadryl] 50 mg PO HS 08/13/20 08/13/20 hydrOXYzine pamoate [Vistaril] 50 mg PO QID 08/13/20 08/13/20 metFORMIN HCL [metFORMIN HCL ER] 750 mg PO W/SUPPER 08/13/20 08/13/20 Previous Rx's Medication Instructions Recorded Atorvastatin [Lipitor] 40 mg PO HS 30 Days tab 07/01/20 Ondansetron Odt [Zofran Odt] 4 mg PO Q8HR PRN #10 tab 07/25/20 Benzonatate [Tessalon Perles] 100 mg PO TID PRN #15 capsule 08/23/20 Ondansetron Odt [Zofran Odt] 4 mg PO Q8HR PRN #10 tab 08/23/20 Cephalexin [Keflex] 500 mg PO Q6HR #28 cap 09/15/20 Nitrofurantoin Monohyd/M-Cryst 100 mg PO Q12HR #6 cap 10/09/20 [Macrobid] Allergies Allergy/AdvReac Type Severity Reaction Status Date / Time bee pollen Allergy Severe Anaphylaxis Verified 10/19/20 12:49 haloperidol [From Haldol] Allergy Severe QUIT Verified 10/19/20 12:49 BREATHING haloperidol lactate Allergy Severe QUIT Verified 10/19/20 12:49 [From Haldol] BREATHING latex Allergy Severe RASH-THROAT Verified 10/19/20 12:49 CLOSES tramadol Allergy Severe Nausea & Verified 10/19/20 12:49 Vomiting murrieta Allergy Anaphylaxis Verified 10/19/20 12:49 coconut Allergy Anaphylaxis Verified 10/19/20 12:49 pineapple Allergy Anaphylaxis Verified 10/19/20 12:49 prednisone Allergy THROAT Verified 10/19/20 12:49 SWELLS spider venom Allergy Swelling Verified 10/19/20 12:49 Sulfa (Sulfonamide Allergy THROAT Verified 10/19/20 12:49 Antibiotics) SWELLS venom-wasp Allergy Swelling Verified 10/19/20 12:49 venom-wasp protein Allergy Swelling Verified 10/19/20 12:49 promethazine HCl AdvReac Severe Nausea & Verified 10/19/20 12:49 [From Phenergan] Vomiting amoxicillin AdvReac Nausea & Verified 10/19/20 12:49 Vomiting ANTS Allergy Mild Anaphylaxis Uncoded 10/19/20 12:49 Review of Systems ROS Statement: Those systems with pertinent positive or pertinent negative responses have been documented in the HPI. ROS Other: All systems not noted in ROS Statement are negative. Past Medical History Past Medical History: Asthma, Diabetes Mellitus, GERD/Reflux Additional Past Medical History / Comment(s): migraines, degenerative disk disease, endometriosis, lupus, pancreatitis History of Any Multi-Drug Resistant Organisms: None Reported Past Surgical History: Orthopedic Surgery Additional Past Surgical History / Comment(s): laparoscopc surgery for endometriosis, cyst removed from left foot, EGD, Past Anesthesia/Blood Transfusion Reactions: Previous Problems w/ Anesthesia Additional Past Anesthesia/Blood Transfusion Reaction / Comment(s): hard to wake up for 48-72 hours after laparoscopic surgery-was in hosp. for 3 days Past Psychological History: Anxiety, Depression, PTSD Smoking Status: Vaper Past Alcohol Use History: Occasional Past Drug Use History: Marijuana - Past Family History Mother Family Medical History: No Reported History Additional Family Medical History / Comment(s): hx migraines Father Family Medical History: Coronary Artery Disease (CAD), Hypertension Additional Family Medical History / Comment(s): ddd, alcoholism & drug use General Exam - General Exam Comments Initial Comments: GENERAL: Patient is well-developed and well-nourished. Patient is nontoxic and well- hydrated and is in mild distress. ENT: Neck is soft and supple. No significant lymphadenopathy is noted. Oropharynx is clear. Moist mucous membranes. Neck has full range of motion without eliciting any pain. EYES: The sclera were anicteric and conjunctiva were pink and moist. Extraocular movements were intact and pupils were equal round and reactive to light. Eyelids were unremarkable. PULMONARY: Unlabored respirations. Good breath sounds bilaterally. No audible rales rhonchi or wheezing was noted. CARDIOVASCULAR: There is a regular rate and rhythm without any murmurs gallops or rubs. ABDOMEN: Soft and nontender with normal bowel sounds. SKIN: Skin is clear with no lesions or rashes and otherwise unremarkable. NEUROLOGIC: Patient is alert and oriented x3. Cranial nerves II through XII are grossly intact. Motor and sensory are also intact. Normal speech, volume and content. Symmetrical smile. MUSCULOSKELETAL: Patient has some tenderness in the paraspinous muscles in the lumbar region on the left. Patient also has some tenderness to the left trapezius muscle. LYMPHATICS: No significant lymphadenopathy is noted PSYCHIATRIC: Normal psychiatric evaluation. Limitations: no limitations Course Vital Signs 07/10/21 12:45 Temperature 98.2 F Pulse Rate 72 Respiratory 18 Rate Blood Pressure 121/86 O2 Sat by Pulse 98 Oximetry Medical Decision Making - Medical Decision Making X-ray of the C-spine showed no acute abnormality. X-ray of the lumbar spine showed no acute normalities. Patient received Toradol in the emergency department. Disposition Clinical Impression: Multiple contusions, Fall Disposition: HOME SELF-CARE Condition: Good Instructions (If sedation given, give patient instructions): Fall Prevention (ED), Contusion in Adults (ED) Is patient prescribed a controlled substance at d/c from ED?: No Referrals: Jorje Mayes MD [Primary Care Provider] - 1-2 days Time of Disposition: 14:13
--- NOTE | 2020-10-19 15:08 | XR ---
Result: History: Pain status post fall downstairs. Comparison: CT 10/02/2020. Technique: 5 views of the cervical spine. Findings: The bone mineralization is age appropriate. The cervical spine is visualized from the craniocervical junction to the cervicothoracic junction. There is no evidence of an acute fracture or subluxation. The vertebral body heights are preserved t hroughout the imaged cervical spine. The vertebral elements are in anatomic alignment. There is nor mal alignment of C1 on C2 as seen on the open mouth odontoid view. There is no significant disc spac e narrowing. The prevertebral soft tissues are within normal limits. Impression: No acute osseous abnormality.
--- NOTE | 2020-10-19 15:11 | XR ---
Result: History: Pain status post fall. Comparison: CT abdomen 09/15/2020. Technique: 5 views of the lumbar spine. Findings: The bone mineralization is normal. Images of the lumbar spine demonstrate 5 lumbar-type vertebrae. Stable nonunion of L1 right transvers e process, may be congenital versus remote posttraumatic seen. There is no acute fracture or subluxa tion. The vertebral body heights are preserved throughout the imaged lumbar spine. The vertebral el ements are in anatomic alignment. The disc heights are maintained. No definite pars defect seen. Impression: No acute osseous abnormality. 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
== END 2020-10-19 15:01 | disposition home or self-care (01) ==
LOC: EC 12:43
DX: S30.0XXA Contusion of lower back and pelvis, initial encounter (principal); S20.222A Contusion of left back wall of thorax, initial encounter; E11.9 Type 2 diabetes mellitus without complications; J45.909 Unspecified asthma, uncomplicated; K21.9 Gastro-esophageal reflux disease without esophagitis; F32.9 Major depressive disorder, single episode, unspecified; F41.9 Anxiety disorder, unspecified; F17.290 Nicotine dependence, other tobacco product, uncomplicated; F12.90 Cannabis use, unspecified, uncomplicated; Z79.84 Long term (current) use of oral hypoglycemic drugs; Z79.1 Long term (current) use of non-steroidal anti-inflammatories (NSAID); Z79.899 Other long term (current) drug therapy; Z88.2 Allergy status to sulfonamides; Z88.5 Allergy status to narcotic agent; Z88.8 Allergy status to other drugs, medicaments and biological substances; W10.9XXA Fall (on) (from) unspecified stairs and steps, initial encounter; Y92.009 Unspecified place in unspecified non-institutional (private) residence as the place of occurrence of the external cause
CPT/HCPCS: 72040; 72110; 96372; 99284; J1885

== ENCOUNTER 2020-10-25 20:47 | Emergency (ER) | payer OTHER ==
[2020-10-25] MEDS ORDERED: KETOROLAC 15 MG/ML 1 ML VIAL IM STA (21:01)
--- NOTE | 2020-10-25 22:00 | XR ---
EXAMINATION TYPE: XR hand complete RT DATE OF EXAM: 10/25/2020 COMPARISON: None HISTORY: Punching bag injury TECHNIQUE: Three-view right hand FINDINGS: No acute fractures or dislocations are evident. Joint spaces appear preserved. Minimal dors al soft tissue swelling may be present. Follow up exams can be performed 7-10 days from acute trauma for continued pain. IMPRESSION: 1. Acute osseous abnormality. 2. Minimal soft tissue swelling dorsum of the hand at the metacarpal phalangeal joint spaces.
--- NOTE | 2020-10-25 22:01 | XR ---
EXAMINATION TYPE: XR forearm RT DATE OF EXAM: 10/25/2020 COMPARISON: None HISTORY: Punching bag injury, pain TECHNIQUE: Two-view right forearm FINDINGS: No acute fracture or dislocation is evident. Radius aligns normally with the humerus. Follow up exams can be performed 7-10 days from acute trauma for continued pain. IMPRESSION: 1. Normal 2 view right forearm.
--- NOTE | 2020-10-25 22:09 | ED ---
Upper Extremity HPI - General Chief Complaint: Extremity Injury, Upper Stated Complaint: R hand injury Time Seen by Provider: 10/25/20 20:55 Source: patient, RN notes reviewed Mode of arrival: ambulatory Limitations: no limitations - History of Present Illness Initial Comments: Patient is a 30-year-old female that presents to emergency department compla ining of right hand pain after hitting a punching bag while messing around with her family. She notes that her right middle finger knuckle is painful to touch which radiates up the forearm. She denied any other issues or complaints. She denied any pain over the anatomical snuffbox. He denied any other issues or complaints. She did appear to be in any distress or pain. - Related Data Home Medications Medication Instructions Recorded Confirmed EPINEPHrine [Epipen 2-Mike] 0.3 mg IM ONCE PRN 10/16/18 08/13/20 Omeprazole [PriLOSEC] 40 mg PO HS 03/04/20 08/13/20 ARIPiprazole [Abilify] 7.5 mg PO HS 08/13/20 08/13/20 Doxepin HCl [SINEquan] 100 mg PO DAILY 08/13/20 08/13/20 Emtrtenofov 200mg 200 mg PO DAILY 08/13/20 08/13/20 Ibuprofen [Motrin] 600 mg PO Q6H PRN 08/13/20 08/13/20 OLANZapine [ZyPREXA] 7.5 mg PO HS 08/13/20 08/13/20 PARoxetine [Paxil] 10 mg PO DAILY 08/13/20 08/13/20 Prazosin [Minipress] 5 mg PO DAILY 08/13/20 08/13/20 Propranolol [Inderal] 20 mg PO TID PRN 08/13/20 08/13/20 Raltegravir Potassium [Isentress] 400 mg PO DAILY 08/13/20 08/13/20 Topiramate [Topamax] 50 mg PO BID 08/13/20 08/13/20 busPIRone HCL 15 mg PO TID 08/13/20 08/13/20 clonazePAM [KlonoPIN] 0.5 mg PO Q7D PRN 08/13/20 08/13/20 diphenhydrAMINE [Benadryl] 50 mg PO HS 08/13/20 08/13/20 hydrOXYzine pamoate [Vistaril] 50 mg PO QID 08/13/20 08/13/20 metFORMIN HCL [metFORMIN HCL ER] 750 mg PO W/SUPPER 08/13/20 08/13/20 Previous Rx's Medication Instructions Recorded Atorvastatin [Lipitor] 40 mg PO HS 30 Days tab 07/01/20 Ondansetron Odt [Zofran Odt] 4 mg PO Q8HR PRN #10 tab 07/25/20 Benzonatate [Tessalon Perles] 100 mg PO TID PRN #15 capsule 08/23/20 Ondansetron Odt [Zofran Odt] 4 mg PO Q8HR PRN #10 tab 08/23/20 Cephalexin [Keflex] 500 mg PO Q6HR #28 cap 09/15/20 Nitrofurantoin Monohyd/M-Cryst 100 mg PO Q12HR #6 cap 10/09/20 [Macrobid] Allergies Allergy/AdvReac Type Severity Reaction Status Date / Time bee pollen Allergy Severe Anaphylaxis Verified 10/19/20 12:49 haloperidol [From Haldol] Allergy Severe QUIT Verified 10/19/20 12:49 BREATHING haloperidol lactate Allergy Severe QUIT Verified 10/19/20 12:49 [From Haldol] BREATHING latex Allergy Severe RASH-THROAT Verified 10/19/20 12:49 CLOSES tramadol Allergy Severe Nausea & Verified 10/25/20 20:54 Vomiting murrieta Allergy Anaphylaxis Verified 10/25/20 20:54 coconut Allergy Anaphylaxis Verified 10/25/20 20:54 pineapple Allergy Anaphylaxis Verified 10/25/20 20:54 prednisone Allergy THROAT Verified 10/25/20 20:54 SWELLS spider venom Allergy Swelling Verified 10/25/20 20:54 Sulfa (Sulfonamide Allergy THROAT Verified 10/25/20 20:54 Antibiotics) SWELLS venom-wasp Allergy Swelling Verified 10/25/20 20:54 venom-wasp protein Allergy Swelling Verified 10/25/20 20:54 promethazine HCl AdvReac Severe Nausea & Verified 10/25/20 20:54 [From Phenergan] Vomiting amoxicillin AdvReac Nausea & Verified 10/25/20 20:54 Vomiting ANTS Allergy Mild Anaphylaxis Uncoded 10/25/20 20:54 Review of Systems ROS Statement: Those systems with pertinent positive or pertinent negative responses have been documented in the HPI. ROS Other: All systems not noted in ROS Statement are negative. Past Medical History Past Medical History: Asthma, Diabetes Mellitus, GERD/Reflux Additional Past Medical History / Comment(s): migraines, degenerative disk disease, endometriosis, lupus, pancreatitis History of Any Multi-Drug Resistant Organisms: None Reported Past Surgical History: Orthopedic Surgery Additional Past Surgical History / Comment(s): laparoscopc surgery for endometriosis, cyst removed from left foot, EGD, Past Anesthesia/Blood Transfusion Reactions: Previous Problems w/ Anesthesia Additional Past Anesthesia/Blood Transfusion Reaction / Comment(s): hard to wake up for 48-72 hours after laparoscopic surgery-was in hosp. for 3 days Past Psychological History: Anxiety, Depression, PTSD Smoking Status: Vaper Past Alcohol Use History: Occasional Past Drug Use History: Marijuana - Past Family History Mother Family Medical History: No Reported History Additional Family Medical History / Comment(s): hx migraines Father Family Medical History: Coronary Artery Disease (CAD), Hypertension Additional Family Medical History / Comment(s): ddd, alcoholism & drug use General Exam Limitations: no limitations General appearance: alert, in no apparent distress Head exam: Present: atraumatic, normocephalic, normal inspection Eye exam: Present: normal appearance, PERRL, EOMI. Absent: scleral icterus, conjunctival injection, periorbital swelling Neck exam: Present: normal inspection Respiratory exam: Present: normal lung sounds bilaterally. Absent: respiratory distress, wheezes, rales, rhonchi, stridor Cardiovascular Exam: Present: regular rate, normal rhythm, normal heart sounds. Absent: systolic murmur, diastolic murmur, rubs, gallop, clicks Right Forearm Wrist exam: Present: normal inspection, full ROM, tenderness (Over the dorsal aspect). Absent: swelling, abrasion, laceration, ecchymosis, deformity, crepitus Hand Wrist exam: Present: normal inspection, tenderness (Over the dorsal aspect), swelling (Normal), abrasion. Absent: full ROM (Secondary to pain), laceration, ecchymosis, deformity, crepitus, dislocation Neurological exam: Present: alert, oriented X3 Psychiatric exam: Present: normal affect, normal mood Skin exam: Present: warm, dry, intact, normal color. Absent: rash Course Vital Signs 10/25/20 20:51 Temperature 98.7 F Pulse Rate 104 H Respiratory 20 Rate Blood Pressure 143/88 O2 Sat by Pulse 99 Oximetry Medical Decision Making - Medical Decision Making 30-year-old female complaining of right wrist pain after hitting a punching bag. X-rays of the right forearm and right hand ordered. 15 mg Toradol ordered. X-rays negative for any acute osseous abnormalities. Case discussed with Dr. Avalos, patient discharge home with follow-up to orthopedist if pain continues in 7-10 days. Disposition Clinical Impression: Sprain of right hand Disposition: HOME SELF-CARE Condition: Stable Instructions (If sedation given, give patient instructions): Hand Sprain (ED) Additional Instructions: Please return to the Emergency Department if symptoms worsen or any other concerns. Follow-up with primary care orthopedist as needed. Take Motrin and Tylenol as needed for pain control. Avoid any excessive use of the right hand. ice compress elevate rest. Is patient prescribed a controlled substance at d/c from ED?: No Referrals: Jorje Mayes MD [Primary Care Provider] - 1-2 days Danny Taylor DO [Doctor of Osteopathic Medicine] - 1-2 days Time of Disposition: 22:09
[2020-10-25 22:17] VITALS: BP 123/87; PULSE 106; RESP 18; TEMP 98.4
== END 2020-10-25 22:20 | disposition home or self-care (01) ==
LOC: EC 20:47
DX: S63.91XA Sprain of unspecified part of right wrist and hand, initial encounter (principal); E11.9 Type 2 diabetes mellitus without complications; J45.909 Unspecified asthma, uncomplicated; F32.9 Major depressive disorder, single episode, unspecified; F41.9 Anxiety disorder, unspecified; K21.9 Gastro-esophageal reflux disease without esophagitis; F17.290 Nicotine dependence, other tobacco product, uncomplicated; F12.90 Cannabis use, unspecified, uncomplicated; Z79.1 Long term (current) use of non-steroidal anti-inflammatories (NSAID); Z79.84 Long term (current) use of oral hypoglycemic drugs; Z88.0 Allergy status to penicillin; Z88.2 Allergy status to sulfonamides; Z88.5 Allergy status to narcotic agent; Z88.8 Allergy status to other drugs, medicaments and biological substances; Z91.040 Latex allergy status; Z82.49 Family history of ischemic heart disease and other diseases of the circulatory system; W22.8XXA Striking against or struck by other objects, initial encounter
CPT/HCPCS: 73090; 73130; 96372; 99283; J1885

== ENCOUNTER 2020-11-02 09:56 | Emergency (ER) | payer OTHER ==
[2020-11-02 09:59] VITALS: BP 120/90; PULSE 120; RESP 16; TEMP 97.6
[2020-11-02] MEDS ORDERED: diphenhydrAMINE 50 MG/ML 1 ML VIAL IVP STA (10:07)
[2020-11-02] MEDS ORDERED: SODIUM CHLORIDE 0.9% 1,000 ML IV STA (10:07)
[2020-11-02] MEDS ORDERED: HYDROmorphone 1 MG/ML 1 ML SYRINGE IVP STA ×2 (10:07→11:40)
[2020-11-02] MEDS ORDERED: ONDANSETRON 4 MG/2 ML VIAL IVP STA (10:07)
--- NOTE | 2020-11-02 11:41 | ED ---
Headache HPI - General Chief Complaint: Headache Stated Complaint: Migraine Time Seen by Provider: 11/02/20 10:04 Source: patient, RN notes reviewed Mode of arrival: ambulatory Limitations: no limitations - History of Present Illness Initial Comments: Rayshawn is a well-known 30-year-old female that presents to the emergency department complaining of migraine headache for the past week. She notes this is her typical migraine this been unrelieved with at home medications. She notes that she is tried contacting her neurologist every day this week with no return call. She notes that she came in for symptom medic control. She denied any other issues or complaints. She was a well-appearing well-hydrated 30-year-old female. She denied any chest pain shortness of breath nausea vomiting diarrhea constipation fever fatigue chills. - Related Data Home Medications Medication Instructions Recorded Confirmed EPINEPHrine [Epipen 2-Mike] 0.3 mg IM ONCE PRN 10/16/18 08/13/20 Omeprazole [PriLOSEC] 40 mg PO HS 03/04/20 08/13/20 ARIPiprazole [Abilify] 7.5 mg PO HS 08/13/20 08/13/20 Doxepin HCl [SINEquan] 100 mg PO DAILY 08/13/20 08/13/20 Emtrtenofov 200mg 200 mg PO DAILY 08/13/20 08/13/20 Ibuprofen [Motrin] 600 mg PO Q6H PRN 08/13/20 08/13/20 OLANZapine [ZyPREXA] 7.5 mg PO HS 08/13/20 08/13/20 PARoxetine [Paxil] 10 mg PO DAILY 08/13/20 08/13/20 Prazosin [Minipress] 5 mg PO DAILY 08/13/20 08/13/20 Propranolol [Inderal] 20 mg PO TID PRN 08/13/20 08/13/20 Raltegravir Potassium [Isentress] 400 mg PO DAILY 08/13/20 08/13/20 Topiramate [Topamax] 50 mg PO BID 08/13/20 08/13/20 busPIRone HCL 15 mg PO TID 08/13/20 08/13/20 clonazePAM [KlonoPIN] 0.5 mg PO Q7D PRN 08/13/20 08/13/20 diphenhydrAMINE [Benadryl] 50 mg PO HS 08/13/20 08/13/20 hydrOXYzine pamoate [Vistaril] 50 mg PO QID 08/13/20 08/13/20 metFORMIN HCL [metFORMIN HCL ER] 750 mg PO W/SUPPER 08/13/20 08/13/20 Previous Rx's Medication Instructions Recorded Atorvastatin [Lipitor] 40 mg PO HS 30 Days tab 07/01/20 Ondansetron Odt [Zofran Odt] 4 mg PO Q8HR PRN #10 tab 07/25/20 Benzonatate [Tessalon Perles] 100 mg PO TID PRN #15 capsule 08/23/20 Ondansetron Odt [Zofran Odt] 4 mg PO Q8HR PRN #10 tab 08/23/20 Cephalexin [Keflex] 500 mg PO Q6HR #28 cap 09/15/20 Nitrofurantoin Monohyd/M-Cryst 100 mg PO Q12HR #6 cap 10/09/20 [Macrobid] Allergies Allergy/AdvReac Type Severity Reaction Status Date / Time bee pollen Allergy Severe Anaphylaxis Verified 11/02/20 09:57 haloperidol [From Haldol] Allergy Severe QUIT Verified 11/02/20 09:57 BREATHING haloperidol lactate Allergy Severe QUIT Verified 11/02/20 09:57 [From Haldol] BREATHING latex Allergy Severe RASH-THROAT Verified 11/02/20 09:57 CLOSES tramadol Allergy Severe Nausea & Verified 11/02/20 09:57 Vomiting murrieta Allergy Anaphylaxis Verified 11/02/20 09:57 coconut Allergy Anaphylaxis Verified 11/02/20 09:57 pineapple Allergy Anaphylaxis Verified 11/02/20 09:57 prednisone Allergy THROAT Verified 11/02/20 09:57 SWELLS spider venom Allergy Swelling Verified 11/02/20 09:57 Sulfa (Sulfonamide Allergy THROAT Verified 11/02/20 09:57 Antibiotics) SWELLS venom-wasp Allergy Swelling Verified 11/02/20 09:57 venom-wasp protein Allergy Swelling Verified 11/02/20 09:57 promethazine HCl AdvReac Severe Nausea & Verified 11/02/20 09:57 [From Phenergan] Vomiting amoxicillin AdvReac Nausea & Verified 11/02/20 09:57 Vomiting ANTS Allergy Mild Anaphylaxis Uncoded 11/02/20 09:57 Review of Systems ROS Statement: Those systems with pertinent positive or pertinent negative responses have been documented in the HPI. ROS Other: All systems not noted in ROS Statement are negative. Past Medical History Past Medical History: Asthma, Diabetes Mellitus, GERD/Reflux Additional Past Medical History / Comment(s): migraines, degenerative disk disease, endometriosis, lupus, pancreatitis History of Any Multi-Drug Resistant Organisms: None Reported Past Surgical History: Orthopedic Surgery Additional Past Surgical History / Comment(s): laparoscopc surgery for endometriosis, cyst removed from left foot, EGD, Past Anesthesia/Blood Transfusion Reactions: Previous Problems w/ Anesthesia Additional Past Anesthesia/Blood Transfusion Reaction / Comment(s): hard to wake up for 48-72 hours after laparoscopic surgery-was in hosp. for 3 days Past Psychological History: Anxiety, Depression, PTSD Smoking Status: Vaper Past Alcohol Use History: Occasional Past Drug Use History: Marijuana - Past Family History Mother Family Medical History: No Reported History Additional Family Medical History / Comment(s): hx migraines Father Family Medical History: Coronary Artery Disease (CAD), Hypertension Additional Family Medical History / Comment(s): ddd, alcoholism & drug use General Exam Limitations: no limitations General appearance: alert, in no apparent distress Head exam: Present: atraumatic, normocephalic, normal inspection Eye exam: Present: normal appearance, PERRL, EOMI. Absent: scleral icterus, conjunctival injection, periorbital swelling Neck exam: Present: normal inspection Respiratory exam: Present: normal lung sounds bilaterally. Absent: respiratory distress, wheezes, rales, rhonchi, stridor Cardiovascular Exam: Present: regular rate, normal rhythm, normal heart sounds. Absent: systolic murmur, diastolic murmur, rubs, gallop, clicks GI/Abdominal exam: Present: soft, normal bowel sounds. Absent: distended, tenderness, guarding, rebound, rigid Extremities exam: Present: normal inspection, full ROM, normal capillary refill. Absent: tenderness, pedal edema, joint swelling, calf tenderness Neurological exam: Present: alert, oriented X3 Psychiatric exam: Present: normal affect, normal mood Skin exam: Present: warm, dry, intact, normal color. Absent: rash Course Vital Signs 11/02/20 09:57 Temperature 97.6 F Pulse Rate 120 H Respiratory 16 Rate Blood Pressure 120/90 O2 Sat by Pulse 99 Oximetry Medical Decision Making - Medical Decision Making 30-year-old female with a history of migraines coming in for symptomatic control and relief of a current migraine. 1 L normal saline, 1 mg of Dilaudid, 50 mg Benadryl, 4 mg of Zofran ordered. Upon reevaluation patient states that she is feeling much better and is almost ready to go home. 1 more milligram of Dilaudid ordered. Case discussed with Dr. Rossi, patient can discharge home with follow-up to urologist. Disposition Clinical Impression: Migraine headache Disposition: HOME SELF-CARE Condition: Stable Instructions (If sedation given, give patient instructions): Acute Headache (ED) Additional Instructions: Please return to the Emergency Department if symptoms worsen or any other concerns. Follow-up with primary care and neurologist as soon as possible. Increase oral fluids. Is patient prescribed a controlled substance at d/c from ED?: No Referrals: Jorje Mayes MD [Primary Care Provider] - 1-2 days Time of Disposition: 11:41
== END 2020-11-02 12:13 | disposition home or self-care (01) ==
LOC: EC 09:56
DX: G43.909 Migraine, unspecified, not intractable, without status migrainosus (principal); E11.9 Type 2 diabetes mellitus without complications; J45.909 Unspecified asthma, uncomplicated; K21.9 Gastro-esophageal reflux disease without esophagitis; F32.9 Major depressive disorder, single episode, unspecified; F41.9 Anxiety disorder, unspecified; F17.290 Nicotine dependence, other tobacco product, uncomplicated; F12.90 Cannabis use, unspecified, uncomplicated; Z79.1 Long term (current) use of non-steroidal anti-inflammatories (NSAID); Z79.84 Long term (current) use of oral hypoglycemic drugs; Z79.899 Other long term (current) drug therapy; Z88.0 Allergy status to penicillin; Z88.2 Allergy status to sulfonamides; Z88.5 Allergy status to narcotic agent; Z88.8 Allergy status to other drugs, medicaments and biological substances; Z82.49 Family history of ischemic heart disease and other diseases of the circulatory system; Z91.040 Latex allergy status
CPT/HCPCS: 96374; 96375 ×2; 96376; 96361 ×2; 99283; J1200; J2405; J1170

== ENCOUNTER 2020-11-03 20:02 | Emergency (ER) | payer OTHER ==
[2020-11-03 20:10] VITALS: TEMP 98.3
[2020-11-03 20:49] LABS: Appearance,Urine Clear (Clear); Bacteria,Urine Occasional /hpf; Bilirubin,Urine Negative (Negative); Blood,Urine Negative (Negative); Color,Urine Light Yellow; Glucose,Urine (UA) Trace (Negative); Ketones,Urine Negative (Negative); Leukocyte Esterase,Urine Large (Negative); Mucus,Urine Rare /hpf; Nitrite,Urine Negative (Negative); PH, Urine 6.5 (5.0-8.0); Protein,Urine Negative (Negative); RBC,Urine 2 /hpf (0-5); Squamous Epithelial Cell,Urine 2 /hpf (0-4); Urobilinogen,Urine <2.0 mg/dL (<2.0); WBC,Urine 7 /hpf (0-5)
[2020-11-03 20:55] LABS: Basophils % (A) 1 %; Eosinophils # (A) 0.1 k/uL (0-0.7); Eosinophils % (A) 2 %; HCT 39.7 % (34.0-46.0); HGB 13.6 gm/dL (11.4-16.0); Lymphocytes # (A) 2.4 k/uL (1.0-4.8); Lymphocytes % (A) 39 %; MCH 31.2 pg (25.0-35.0); MCHC 34.3 g/dL (31.0-37.0); MCV 90.9 fL (80.0-100.0); Mean Platelet Volume 7.7; Monocytes # (A) 0.3 k/uL (0-1.0); Monocytes % (A) 4 %; Neutrophils # (A) 3.3 k/uL (1.3-7.7); Neutrophils % (A) 53 %; Platelet Count 245 k/uL (150-450); RBC 4.36 m/uL (3.80-5.40); RDW 13.1 % (11.5-15.5); WBC 6.3 k/uL (3.8-10.6)
[2020-11-03] MEDS ORDERED: SODIUM CHLORIDE 0.9% 1,000 ML IV STA (21:02)
[2020-11-03] MEDS ORDERED: HYDROmorphone 1 MG/ML 1 ML SYRINGE IVP STA ×2 (21:02→21:58)
[2020-11-03] MEDS ORDERED: ONDANSETRON 4 MG/2 ML VIAL IVP STA (21:02)
[2020-11-03 21:06] LABS: ALT 29 U/L (4-34); AST 53 U/L (14-36); African American GFR (CKD) >90 (>60 ml/min/1.73 sqM); Albumin 4.3 g/dL (3.5-5.0); Alkaline Phosphatase 63 U/L (38-126); Anion Gap 10 mmol/L; Blood Urea Nitrogen 15 mg/dL (7-17); Calcium 10.7 mg/dL (8.4-10.2); Carbon Dioxide 25 mmol/L (22-30); Chloride 103 mmol/L (98-107); Glucose 177 mg/dL (74-99); Lipase 372 U/L (23-300); Non-African American GFR(CKD) >90 (>60 ml/min/1.73 sqM); Potassium 4.2 mmol/L (3.5-5.1); Sodium 138 mmol/L (137-145); Total Bilirubin 0.4 mg/dL (0.2-1.3); Total Protein 7.3 g/dL (6.3-8.2)
--- NOTE | 2020-11-03 21:44 | ED ---
Abdominal Pain HPI - General Chief Complaint: Abdominal Pain Stated Complaint: Abd Pain Time Seen by Provider: 11/03/20 20:21 Source: patient Mode of arrival: ambulatory Limitations: no limitations - History of Present Illness Initial Comments: 30-year-old female presents to emergency Department with a chief complaint of abdominal pain. Patient reports this feels like her typical pain mostly in the epigastric abdominal region. She reports history of pancreatitis and states this feels just like it. The pain does not appear to be postprandial. Reports nausea with some vomiting. Reports the pain is mostly located in the epigastric region without any radiation. She denies any constipation or diarrhea. Denies any urinary or vaginal symptoms. Denies any fevers or chills. Does not drink alcohol. - Related Data Home Medications Medication Instructions Recorded Confirmed EPINEPHrine [Epipen 2-Mike] 0.3 mg IM ONCE PRN 10/16/18 08/13/20 Omeprazole [PriLOSEC] 40 mg PO HS 03/04/20 08/13/20 ARIPiprazole [Abilify] 7.5 mg PO HS 08/13/20 08/13/20 Doxepin HCl [SINEquan] 100 mg PO DAILY 08/13/20 08/13/20 Emtrtenofov 200mg 200 mg PO DAILY 08/13/20 08/13/20 Ibuprofen [Motrin] 600 mg PO Q6H PRN 08/13/20 08/13/20 OLANZapine [ZyPREXA] 7.5 mg PO HS 08/13/20 08/13/20 PARoxetine [Paxil] 10 mg PO DAILY 08/13/20 08/13/20 Prazosin [Minipress] 5 mg PO DAILY 08/13/20 08/13/20 Propranolol [Inderal] 20 mg PO TID PRN 08/13/20 08/13/20 Raltegravir Potassium [Isentress] 400 mg PO DAILY 08/13/20 08/13/20 Topiramate [Topamax] 50 mg PO BID 08/13/20 08/13/20 busPIRone HCL 15 mg PO TID 08/13/20 08/13/20 clonazePAM [KlonoPIN] 0.5 mg PO Q7D PRN 08/13/20 08/13/20 diphenhydrAMINE [Benadryl] 50 mg PO HS 08/13/20 08/13/20 hydrOXYzine pamoate [Vistaril] 50 mg PO QID 08/13/20 08/13/20 metFORMIN HCL [metFORMIN HCL ER] 750 mg PO W/SUPPER 08/13/20 08/13/20 Previous Rx's Medication Instructions Recorded Atorvastatin [Lipitor] 40 mg PO HS 30 Days tab 07/01/20 Ondansetron Odt [Zofran Odt] 4 mg PO Q8HR PRN #10 tab 07/25/20 Benzonatate [Tessalon Perles] 100 mg PO TID PRN #15 capsule 08/23/20 Ondansetron Odt [Zofran Odt] 4 mg PO Q8HR PRN #10 tab 08/23/20 Cephalexin [Keflex] 500 mg PO Q6HR #28 cap 09/15/20 Nitrofurantoin Monohyd/M-Cryst 100 mg PO Q12HR #6 cap 10/09/20 [Macrobid] Allergies Allergy/AdvReac Type Severity Reaction Status Date / Time bee pollen Allergy Severe Anaphylaxis Verified 11/03/20 20:09 haloperidol [From Haldol] Allergy Severe QUIT Verified 11/03/20 20:09 BREATHING haloperidol lactate Allergy Severe QUIT Verified 11/03/20 20:09 [From Haldol] BREATHING latex Allergy Severe RASH-THROAT Verified 11/03/20 20:09 CLOSES tramadol Allergy Severe Nausea & Verified 11/03/20 20:09 Vomiting [place] Allergy Anaphylaxis Verified 11/03/20 20:09 coconut Allergy Anaphylaxis Verified 11/03/20 20:09 pineapple Allergy Anaphylaxis Verified 11/03/20 20:09 prednisone Allergy THROAT Verified 11/03/20 20:09 SWELLS spider venom Allergy Swelling Verified 11/03/20 20:09 Sulfa (Sulfonamide Allergy THROAT Verified 11/03/20 20:09 Antibiotics) SWELLS venom-wasp Allergy Swelling Verified 11/03/20 20:09 venom-wasp protein Allergy Swelling Verified 11/03/20 20:09 promethazine HCl AdvReac Severe Nausea & Verified 11/03/20 20:09 [From Phenergan] Vomiting amoxicillin AdvReac Nausea & Verified 11/03/20 20:09 Vomiting ANTS Allergy Mild Anaphylaxis Uncoded 11/03/20 20:09 Review of Systems ROS Statement: Those systems with pertinent positive or pertinent negative responses have been documented in the HPI. ROS Other: All systems not noted in ROS Statement are negative. Past Medical History Past Medical History: Asthma, Diabetes Mellitus, GERD/Reflux Additional Past Medical History / Comment(s): migraines, degenerative disk disease, endometriosis, lupus, pancreatitis History of Any Multi-Drug Resistant Organisms: None Reported Past Surgical History: Orthopedic Surgery Additional Past Surgical History / Comment(s): laparoscopc surgery for endometriosis, cyst removed from left foot, EGD, Past Anesthesia/Blood Transfusion Reactions: Previous Problems w/ Anesthesia Additional Past Anesthesia/Blood Transfusion Reaction / Comment(s): hard to wake up for 48-72 hours after laparoscopic surgery-was in hosp. for 3 days Past Psychological History: Anxiety, Depression, PTSD Smoking Status: Vaper Past Alcohol Use History: Occasional Past Drug Use History: Marijuana - Past Family History Mother Family Medical History: No Reported History Additional Family Medical History / Comment(s): hx migraines Father Family Medical History: Coronary Artery Disease (CAD), Hypertension Additional Family Medical History / Comment(s): ddd, alcoholism & drug use General Exam Limitations: no limitations General appearance: alert, in no apparent distress, obese Head exam: Present: atraumatic, normocephalic, normal inspection Eye exam: Present: normal appearance, PERRL, EOMI Pupils: Present: normal accommodation ENT exam: Present: normal exam, normal oropharynx, mucous membranes moist Neck exam: Present: normal inspection, full ROM. Absent: tenderness, lymphadenopathy Respiratory exam: Present: normal lung sounds bilaterally. Absent: respiratory distress, wheezes, rales Cardiovascular Exam: Present: regular rate, normal rhythm, normal heart sounds GI/Abdominal exam: Present: soft, tenderness. Absent: distended, guarding, rebound Extremities exam: Present: normal inspection, full ROM. Absent: tenderness Back exam: Present: normal inspection, full ROM. Absent: tenderness Neurological exam: Present: alert, oriented X3 Psychiatric exam: Present: normal affect, normal mood Skin exam: Present: warm, dry, intact, normal color Course Vital Signs 11/03/20 11/03/20 11/03/20 20:09 21:55 22:25 Temperature 98.3 F Pulse Rate 130 H 122 H 115 H Respiratory 16 18 Rate Blood Pressure 113/80 108/75 O2 Sat by Pulse 97 94 L Oximetry 11/03/20 22:53 Temperature Pulse Rate 112 H Respiratory 18 Rate Blood Pressure 105/61 O2 Sat by Pulse 96 Oximetry Medical Decision Making - Medical Decision Making 30-year-old female presents to emergency Department with a chief complaint of abdominal pain. On physical examination, patient is well-appearing. She does have epigastric abdominal tenderness. She is concerned for pancreatitis but is not a drinker. Rest of physical exam is unremarkable. CBC CMP is unremarkable. Lipase is slightly elevated at 324. UA shows no acute findings. Patient has b een of value multiple times in this emergency department for her abdominal pain. She's had multiple CTs that are often unremarkable. We'll discharge the patient with Tylenol 3 and Zofran. Patient did remain tachycardic while in the ED, however she states typically she has elevated heart rate. She will follow up with a GI specialist. Case discussed with physician. - Lab Data Result diagrams: 11/03/20 20:48 11/03/20 20:48 Lab Results 11/03/20 11/03/20 11/03/20 Range/Units 20:42 20:42 20:48 WBC 6.3 (3.8-10.6) k/uL RBC 4.36 (3.80-5.40) m/uL Hgb 13.6 (11.4-16.0) gm/dL Hct 39.7 (34.0-46.0) % MCV 90.9 (80.0-100.0) fL MCH 31.2 (25.0-35.0) pg MCHC 34.3 (31.0-37.0) g/dL RDW 13.1 (11.5-15.5) % Plt Count 245 (150-450) k/uL MPV 7.7 Neutrophils % 53 % Lymphocytes % 39 % Monocytes % 4 % Eosinophils % 2 % Basophils % 1 % Neutrophils # 3.3 (1.3-7.7) k/uL Lymphocytes # 2.4 (1.0-4.8) k/uL Monocytes # 0.3 (0-1.0) k/uL Eosinophils # 0.1 (0-0.7) k/uL Basophils # 0.0 (0-0.2) k/uL Sodium (137-145) mmol/L Potassium (3.5-5.1) mmol/L Chloride (98-107) mmol/L Carbon Dioxide (22-30) mmol/L Anion Gap mmol/L BUN (7-17) mg/dL Creatinine (0.52-1.04) mg/dL Est GFR (CKD-EPI)AfAm (>60 ml/min/1.73 sqM) Est GFR (CKD-EPI)NonAf (>60 ml/min/1.73 sqM) Glucose (74-99) mg/dL Calcium (8.4-10.2) mg/dL Total Bilirubin (0.2-1.3) mg/dL AST (14-36) U/L ALT (4-34) U/L Alkaline Phosphatase (38-126) U/L Total Protein (6.3-8.2) g/dL Albumin (3.5-5.0) g/dL Lipase (23-300) U/L Urine Color Light Yellow Urine Appearance Clear (Clear) Urine pH 6.5 (5.0-8.0) Ur Specific [place] 1.010 (1.001-1.035) Urine Protein Negative (Negative) Urine Glucose (UA) Trace H (Negative) Urine Ketones Negative (Negative) Urine Blood Negative (Negative) Urine Nitrite Negative (Negative) Urine Bilirubin Negative (Negative) Urine Urobilinogen <2.0 (<2.0) mg/dL Ur Leukocyte Esterase Large H (Negative) Urine RBC 2 (0-5) /hpf Urine WBC 7 H (0-5) /hpf Ur Squamous Epith Cells 2 (0-4) /hpf Urine Bacteria Occasional H (None) /hpf Urine Mucus Rare H (None) /hpf Urine HCG, Qual Not Detected (Not Detectd) 11/03/20 Range/Units 20:48 WBC (3.8-10.6) k/uL RBC (3.80-5.40) m/uL Hgb (11.4-16.0) gm/dL Hct (34.0-46.0) % MCV (80.0-100.0) fL MCH (25.0-35.0) pg MCHC (31.0-37.0) g/dL RDW (11.5-15.5) % Plt Count (150-450) k/uL MPV Neutrophils % % Lymphocytes % % Monocytes % % Eosinophils % % Basophils % % Neutrophils # (1.3-7.7) k/uL Lymphocytes # (1.0-4.8) k/uL Monocytes # (0-1.0) k/uL Eosinophils # (0-0.7) k/uL Basophils # (0-0.2) k/uL Sodium 138 (137-145) mmol/L Potassium 4.2 (3.5-5.1) mmol/L Chloride 103 (98-107) mmol/L Carbon Dioxide 25 (22-30) mmol/L Anion Gap 10 mmol/L BUN 15 (7-17) mg/dL Creatinine 0.84 (0.52-1.04) mg/dL Est GFR (CKD-EPI)AfAm >90 (>60 ml/min/1.73 sqM) Est GFR (CKD-EPI)NonAf >90 (>60 ml/min/1.73 sqM) Glucose 177 H (74-99) mg/dL Calcium 10.7 H (8.4-10.2) mg/dL Total Bilirubin 0.4 (0.2-1.3) mg/dL AST 53 H (14-36) U/L ALT 29 (4-34) U/L Alkaline Phosphatase 63 (38-126) U/L Total Protein 7.3 (6.3-8.2) g/dL Albumin 4.3 (3.5-5.0) g/dL Lipase 372 H (23-300) U/L Urine Color Urine Appearance (Clear) Urine pH (5.0-8.0) Ur Specific [place] (1.001-1.035) Urine Protein (Negative) Urine Glucose (UA) (Negative) Urine Ketones (Negative) Urine Blood (Negative) Urine Nitrite (Negative) Urine Bilirubin (Negative) Urine Urobilinogen (<2.0) mg/dL Ur Leukocyte Esterase (Negative) Urine RBC (0-5) /hpf Urine WBC (0-5) /hpf Ur Squamous Epith Cells (0-4) /hpf Urine Bacteria (None) /hpf Urine Mucus (None) /hpf Urine HCG, Qual (Not Detectd) Disposition Clinical Impression: Abdominal pain Disposition: HOME SELF-CARE Condition: Stable Instructions (If sedation given, give patient instructions): Abdominal Pain (ED) Additional Instructions: Please return to the Emergency Department if symptoms worsen or any other conc erns. Is patient prescribed a controlled substance at d/c from ED?: No Referrals: Jorje Mayes MD [Primary Care Provider] - 1-2 days Time of Disposition: 03:05
[2020-11-03] MEDS ORDERED: ACET/COD 300 MG/30 MG STARTER PACK 6 TAB BTL PO STA (21:53)
[2020-11-03] MEDS ORDERED: ONDANSETRON 4 MG ODT STARTER PACK 2 TAB BTL PO STA (21:53)
[2020-11-03 21:55] VITALS: RESP 18
[2020-11-03] MEDS ORDERED: diphenhydrAMINE 50 MG/ML 1 ML VIAL IVP STA (22:34)
[2020-11-03 23:03] VITALS: BP 105/61; PULSE 112
== END 2020-11-03 22:53 | disposition home or self-care (01) ==
LOC: EC 20:02
DX: R10.13 Epigastric pain (principal); E66.9 Obesity, unspecified; E11.9 Type 2 diabetes mellitus without complications; J45.909 Unspecified asthma, uncomplicated; K21.9 Gastro-esophageal reflux disease without esophagitis; F32.9 Major depressive disorder, single episode, unspecified; F41.9 Anxiety disorder, unspecified; F17.290 Nicotine dependence, other tobacco product, uncomplicated; F12.90 Cannabis use, unspecified, uncomplicated; Z82.49 Family history of ischemic heart disease and other diseases of the circulatory system; Z79.84 Long term (current) use of oral hypoglycemic drugs; Z79.899 Other long term (current) drug therapy; Z88.5 Allergy status to narcotic agent; Z88.2 Allergy status to sulfonamides; Z88.1 Allergy status to other antibiotic agents; Z88.8 Allergy status to other drugs, medicaments and biological substances; Z68.39 Body mass index [BMI] 39.0-39.9, adult
CPT/HCPCS: 36415; 80053; 83690; 85025; 81001; 81025; 96374; 96375 ×2; 96376; 96361; 99284; J1200; J2405; J1170; S0119

== ENCOUNTER 2020-11-06 19:06 | Inpatient (IN) | payer OTHER ==
[2020-11-06] MEDS ORDERED: SODIUM CHLORIDE 0.9% 1,000 ML IV STA ×2 (19:25→21:46)
[2020-11-06] MEDS ORDERED: ONDANSETRON 4 MG/2 ML VIAL IVP STA (19:25)
--- NOTE | 2020-11-06 19:34 | ED ---
Recheck HPI - General Chief Complaint: Recheck/Abnormal Lab/Rx Stated Complaint: Got infusion for migrain, feels worse & shaky Time Seen by Provider: 11/06/20 19:13 Source: patient Mode of arrival: ambulatory Limitations: no limitations - History of Present Illness Initial Comments: 30 year-old female patient presents to the emergency department for evaluation of dizziness and palpitations after receiving an infusion at her doctor's office for migraines. States that she was given toradol, reglan, and benadryl. States when she left she started feeling unwell. States that she was nauseated and did vomit. States she was dizzy and felt like she was going to pass out. Patient states that her heart is beating hard, like its going to beat out of her chest. Denies any fever, chills, or upper respiratory congestion. Denies any abdominal pain. States she still has a throbbing headache. States these symptoms seem different from her usual migraine pattern. Denies any head injury. Denies any new or stopped medications. Patient denies any recent rash, shortness of breath, chest pain, diarrhea, constipation, back pain, numbness, tingling, dizziness, weakness, hematuria, dysuria, urinary urgency, urinary frequency, visual changes, or any other complaint. - Related Data Home Medications Medication Instructions Recorded Confirmed Omeprazole [PriLOSEC] 40 mg PO HS 03/04/20 08/13/20 ARIPiprazole [Abilify] 7.5 mg PO HS 08/13/20 08/13/20 PARoxetine [Paxil] 10 mg PO DAILY 08/13/20 08/13/20 Prazosin [Minipress] 5 mg PO DAILY 08/13/20 08/13/20 busPIRone HCL 15 mg PO TID 08/13/20 08/13/20 clonazePAM [KlonoPIN] 0.5 mg PO Q7D PRN 08/13/20 08/13/20 diphenhydrAMINE [Benadryl] 50 mg PO HS 08/13/20 08/13/20 hydrOXYzine pamoate [Vistaril] 50 mg PO QID 08/13/20 08/13/20 metFORMIN HCL [metFORMIN HCL ER] 750 mg PO W/SUPPER 08/13/20 08/13/20 Diclofenac Sodium [Voltaren] 75 mg PO BID 11/06/20 11/06/20 Doxepin HCl [SINEquan] 150 mg PO HS 11/06/20 11/06/20 Doxycycline Hyclate [Vibramycin] 100 mg PO BID 11/06/20 11/06/20 Fenofibrate Nanocrystallized 145 mg PO HS 11/06/20 11/06/20 [Fenofibrate] Montelukast Sodium [Singulair] 10 mg PO HS 11/06/20 11/06/20 OLANZapine [ZyPREXA] 5 mg PO HS 11/06/20 11/06/20 Propranolol [Inderal] 10 mg PO TID PRN 11/06/20 11/06/20 Rimegepant Sulfate [Nurtec Odt] 75 mg PO DAILY PRN 11/06/20 11/06/20 Rizatriptan Benzoate [Rizatriptan] 10 mg PO BID PRN 11/06/20 11/06/20 tiZANidine HCL 4 mg PO BID PRN 11/06/20 11/06/20 Previous Rx's Medication Instructions Recorded Atorvastatin [Lipitor] 40 mg PO HS 30 Days tab 07/01/20 Ondansetron Odt [Zofran Odt] 4 mg PO Q8HR PRN #10 tab 07/25/20 Allergies Allergy/AdvReac Type Severity Reaction Status Date / Time bee pollen Allergy Severe Anaphylaxis Verified 11/06/20 22:34 haloperidol [From Haldol] Allergy Severe QUIT Verified 11/06/20 22:34 BREATHING haloperidol lactate Allergy Severe QUIT Verified 11/06/20 22:34 [From Haldol] BREATHING latex Allergy Severe RASH-THROAT Verified 11/06/20 22:34 CLOSES tramadol Allergy Severe Nausea & Verified 11/06/20 22:34 Vomiting [place] Allergy Anaphylaxis Verified 11/06/20 22:34 coconut Allergy Anaphylaxis Verified 11/06/20 22:34 pineapple Allergy Anaphylaxis Verified 11/06/20 22:34 prednisone Allergy THROAT Verified 11/06/20 22:34 SWELLS spider venom Allergy Swelling Verified 11/06/20 22:34 Sulfa (Sulfonamide Allergy THROAT Verified 11/06/20 22:34 Antibiotics) SWELLS venom-wasp Allergy Swelling Verified 11/06/20 22:34 venom-wasp protein Allergy Swelling Verified 11/06/20 22:34 promethazine HCl AdvReac Severe Nausea & Verified 11/06/20 22:34 [From Phenergan] Vomiting amoxicillin AdvReac Nausea & Verified 11/06/20 22:34 Vomiting ANTS Allergy Mild Anaphylaxis Uncoded 11/06/20 22:34 Review of Systems ROS Statement: Those systems with pertinent positive or pertinent negative responses have been documented in the HPI. ROS Other: All systems not noted in ROS Statement are negative. Past Medical History Past Medical History: Asthma, Diabetes Mellitus, GERD/Reflux Additional Past Medical History / Comment(s): migraines, degenerative disk disease, endometriosis, lupus, pancreatitis History of Any Multi-Drug Resistant Organisms: None Reported Past Surgical History: Orthopedic Surgery Additional Past Surgical History / Comment(s): laparoscopc surgery for endometriosis, cyst removed from left foot, EGD, Past Anesthesia/Blood Transfusion Reactions: Previous Problems w/ Anesthesia Additional Past Anesthesia/Blood Transfusion Reaction / Comment(s): hard to wake up for 48-72 hours after laparoscopic surgery-was in hosp. for 3 days Past Psychological History: Anxiety, Depression, PTSD Smoking Status: Vaper Past Alcohol Use History: Occasional Past Drug Use History: Marijuana - Past Family History Mother Family Medical History: No Reported History Additional Family Medical History / Comment(s): hx migraines Father Family Medical History: Coronary Artery Disease (CAD), Hypertension Additional Family Medical History / Comment(s): ddd, alcoholism & drug use General Exam Limitations: no limitations General appearance: alert, in no apparent distress, other (This is a well- developed, well-nourished adult female patient in no acute distress. Vital signs upon presentation are temperature 98.1F, pulse 142, respirations 18, blood pressure 133/90, pulse ox 97% on room air.) Eye exam: Present: normal appearance, PERRL, EOMI. Absent: scleral icterus, conjunctival injection, periorbital swelling ENT exam: Present: normal exam, normal oropharynx, mucous membranes moist Respiratory exam: Present: normal lung sounds bilaterally. Absent: respiratory distress, wheezes, rales, rhonchi, stridor Cardiovascular Exam: Present: regular rate, normal rhythm, normal heart sounds. Absent: systolic murmur, diastolic murmur, rubs, gallop, clicks GI/Abdominal exam: Present: soft, normal bowel sounds. Absent: distended, tenderness, guarding, rebound, rigid Neurological exam: Present: alert, oriented X3, CN II-XII intact Expanded Speech: Present: fluid speech Cranial nerves: EOM's Intact: Normal, Tongue Deviation: Normal Motor strength exam: RUE: 5, LUE: 5, RLE: 5, LLE: 5 Psychiatric exam: Present: normal affect, normal mood Skin exam: Present: warm, dry, intact, normal color. Absent: rash Course Vital Signs 11/06/20 19:07 Temperature 98.1 F Pulse Rate 142 H Respiratory 18 Rate Blood Pressure 133/90 O2 Sat by Pulse 97 Oximetry Medical Decision Making - Medical Decision Making 30 year-old female patient presenting for dizziness, headache, vomiting, and palpitations. Upon arrival heart rate is in the 130s-140s. EKG shows sinus tachycardia. Labs reviewed and showed elevated blood sugar but were otherwise unremarkable. She was given medication for migraine, IV fluids, ativan. Heart rate remained in the 140s. She will be admitted for cardiac monitoring, ECHO in the morning, and evaluation by cardiology. She is agreeable with this plan. Case discussed with my attending Dr. Turner. - Lab Data Result diagrams: 11/06/20 19:47 11/06/20 19:47 Lab Results 11/06/20 11/06/20 11/06/20 Range/Units 19:47 19:47 19:47 WBC 9.1 (3.8-10.6) k/uL RBC 4.51 (3.80-5.40) m/uL Hgb 14.2 (11.4-16.0) gm/dL Hct 41.4 (34.0-46.0) % MCV 91.9 (80.0-100.0) fL MCH 31.5 (25.0-35.0) pg MCHC 34.2 (31.0-37.0) g/dL RDW 13.2 (11.5-15.5) % Plt Count 264 (150-450) k/uL MPV 7.8 Neutrophils % 88 % Lymphocytes % 11 % Monocytes % 1 % Eosinophils % 0 % Basophils % 0 % Neutrophils # 8.0 H (1.3-7.7) k/uL Lymphocytes # 1.0 (1.0-4.8) k/uL Monocytes # 0.1 (0-1.0) k/uL Eosinophils # 0.0 (0-0.7) k/uL Basophils # 0.0 (0-0.2) k/uL PT 10.2 (9.0-12.0) sec INR 0.9 (<1.2) APTT 20.5 L (22.0-30.0) sec Sodium 134 L (137-145) mmol/L Potassium 4.8 (3.5-5.1) mmol/L Chloride 102 (98-107) mmol/L Carbon Dioxide 19 L (22-30) mmol/L Anion Gap 13 mmol/L BUN 15 (7-17) mg/dL Creatinine 0.82 (0.52-1.04) mg/dL Est GFR (CKD-EPI)AfAm >90 (>60 ml/min/1.73 sqM) Est GFR (CKD-EPI)NonAf >90 (>60 ml/min/1.73 sqM) Glucose 257 H (74-99) mg/dL Calcium 11.3 H (8.4-10.2) mg/dL Magnesium 2.1 (1.6-2.3) mg/dL Total Bilirubin 0.3 (0.2-1.3) mg/dL AST 43 H (14-36) U/L ALT 36 H (4-34) U/L Alkaline Phosphatase 76 (38-126) U/L Troponin I (0.000-0.034) ng/mL Total Protein 7.6 (6.3-8.2) g/dL Albumin 4.6 (3.5-5.0) g/dL TSH 0.706 (0.465-4.680) mIU/L Urine Color Urine Appearance (Clear) Urine pH (5.0-8.0) Ur Specific [place] (1.001-1.035) Urine Protein (Negative) Urine Glucose (UA) (Negative) Urine Ketones (Negative) Urine Blood (Negative) Urine Nitrite (Negative) Urine Bilirubin (Negative) Urine Urobilinogen (<2.0) mg/dL Ur Leukocyte Esterase (Negative) Urine RBC (0-5) /hpf Urine WBC (0-5) /hpf Ur Squamous Epith Cells (0-4) /hpf Urine Bacteria (None) /hpf Urine Mucus (None) /hpf Urine HCG, Qual (Not Detectd) Urine Opiates Screen (NotDetected) Ur Oxycodone Screen (NotDetected) Urine Methadone Screen (NotDetected) Ur Propoxyphene Screen (NotDetected) Ur Barbiturates Screen (NotDetected) U Tricyclic Antidepress (NotDetected) Ur Phencyclidine Scrn (NotDetected) Ur Amphetamines Screen (NotDetected) U Methamphetamines Scrn (NotDetected) U Benzodiazepines Scrn (NotDetected) Urine Cocaine Screen (NotDetected) U Marijuana (THC) Screen (NotDetected) 11/06/20 11/06/20 11/06/20 Range/Units 19:47 19:47 19:47 WBC (3.8-10.6) k/uL RBC (3.80-5.40) m/uL Hgb (11.4-16.0) gm/dL Hct (34.0-46.0) % MCV (80.0-100.0) fL MCH (25.0-35.0) pg MCHC (31.0-37.0) g/dL RDW (11.5-15.5) % Plt Count (150-450) k/uL MPV Neutrophils % % Lymphocytes % % Monocytes % % Eosinophils % % Basophils % % Neutrophils # (1.3-7.7) k/uL Lymphocytes # (1.0-4.8) k/uL Monocytes # (0-1.0) k/uL Eosinophils # (0-0.7) k/uL Basophils # (0-0.2) k/uL PT (9.0-12.0) sec INR (<1.2) APTT (22.0-30.0) sec Sodium (137-145) mmol/L Potassium (3.5-5.1) mmol/L Chloride (98-107) mmol/L Carbon Dioxide (22-30) mmol/L Anion Gap mmol/L BUN (7-17) mg/dL Creatinine (0.52-1.04) mg/dL Est GFR (CKD-EPI)AfAm (>60 ml/min/1.73 sqM) Est GFR (CKD-EPI)NonAf (>60 ml/min/1.73 sqM) Glucose (74-99) mg/dL Calcium (8.4-10.2) mg/dL Magnesium (1.6-2.3) mg/dL Total Bilirubin (0.2-1.3) mg/dL AST (14-36) U/L ALT (4-34) U/L Alkaline Phosphatase (38-126) U/L Troponin I <0.012 (0.000-0.034) ng/mL Total Protein (6.3-8.2) g/dL Albumin (3.5-5.0) g/dL TSH (0.465-4.680) mIU/L Urine Color Yellow Urine Appearance Cloudy H (Clear) Urine pH 6.5 (5.0-8.0) Ur Specific [place] 1.023 (1.001-1.035) Urine Protein Negative (Negative) Urine Glucose (UA) 3+ H (Negative) Urine Ketones Trace H (Negative) Urine Blood Negative (Negative) Urine Nitrite Negative (Negative) Urine Bilirubin Negative (Negative) Urine Urobilinogen <2.0 (<2.0) mg/dL Ur Leukocyte Esterase Large H (Negative) Urine RBC 1 (0-5) /hpf Urine WBC 10 H (0-5) /hpf Ur Squamous Epith Cells 7 H (0-4) /hpf Urine Bacteria Rare H (None) /hpf Urine Mucus Rare H (None) /hpf Urine HCG, Qual Not Detected (Not Detectd) Urine Opiates Screen Detected H (NotDetected) Ur Oxycodone Screen Not Detected (NotDetected) Urine Methadone Screen Not Detected (NotDetected) Ur Propoxyphene Screen Not Detected (NotDetected) Ur Barbiturates Screen Not Detected (NotDetected) U Tricyclic Antidepress Detected H (NotDetected) Ur Phencyclidine Scrn Not Detected (NotDetected) Ur Amphetamines Screen Not Detected (NotDetected) U Methamphetamines Scrn Not Detected (NotDetected) U Benzodiazepines Scrn Not Detected (NotDetected) Urine Cocaine Screen Not Detected (NotDetected) U Marijuana (THC) Screen Not Detected (NotDetected) - EKG Data -: EKG Interpreted by Ct EKG Comments: EKG obtained in 1919 shows sinus tachycardia with a ventricular rate of 133, para interval 140, QRS duration 80, QT 298, QTC 443. No evidence of ST elevation or depression. - Radiology Data Radiology results: report reviewed, image reviewed Two-view x-ray of the chest is obtained. Report was reviewed in its entirety. Impression by Dr. Bender shows normal chest. No change. Disposition Clinical Impression: Tachycardia, Dizziness, Headache Disposition: ADMITTED IP TO THIS [facility] Condition: Serious Referrals: Jorje Mayes MD [Primary Care Provider] - 1-2 days Decision to Admit Reason: Admit from EC Decision Date: 11/06/20 Decision Time: 22:06
[2020-11-06 20:13] LABS: Basophils % (A) 0 %; Eosinophils % (A) 0 %; HCT 41.4 % (34.0-46.0); HGB 14.2 gm/dL (11.4-16.0); Lymphocytes % (A) 11 %; MCH 31.5 pg (25.0-35.0); MCHC 34.2 g/dL (31.0-37.0); MCV 91.9 fL (80.0-100.0); Mean Platelet Volume 7.8; Monocytes # (A) 0.1 k/uL (0-1.0); Monocytes % (A) 1 %; Neutrophils % (A) 88 %; Platelet Count 264 k/uL (150-450); RBC 4.51 m/uL (3.80-5.40); RDW 13.2 % (11.5-15.5); WBC 9.1 k/uL (3.8-10.6)
[2020-11-06 20:22] LABS: AST 43 U/L (14-36); African American GFR (CKD) >90 (>60 ml/min/1.73 sqM); Albumin 4.6 g/dL (3.5-5.0); Alkaline Phosphatase 76 U/L (38-126); Anion Gap 13 mmol/L; Blood Urea Nitrogen 15 mg/dL (7-17); Calcium 11.3 mg/dL (8.4-10.2); Carbon Dioxide 19 mmol/L (22-30); Chloride 102 mmol/L (98-107); Glucose 257 mg/dL (74-99); Magnesium 2.1 mg/dL (1.6-2.3); Non-African American GFR(CKD) >90 (>60 ml/min/1.73 sqM); Potassium 4.8 mmol/L (3.5-5.1); Sodium 134 mmol/L (137-145); Total Bilirubin 0.3 mg/dL (0.2-1.3); Total Protein 7.6 g/dL (6.3-8.2)
[2020-11-06] MEDS ORDERED: KETOROLAC 15 MG/ML 1 ML VIAL IVP STA (20:22)
--- NOTE | 2020-11-06 20:27 | XR ---
EXAMINATION TYPE: XR chest 2V DATE OF EXAM: 11/06/2020 COMPARISON: 08/23/2020 HISTORY: Dysrhythmia TECHNIQUE: 2 views FINDINGS: Heart and mediastinum are normal. Lungs are clear. Diaphragm is normal. Bony thorax is inta ct. There are chest leads. IMPRESSION: Normal chest. No change.
[2020-11-06 20:28] LABS: ALT 36 U/L (4-34)
[2020-11-06 20:32] LABS: INR 0.9 (<1.2); Prothrombin Time 10.2 sec (9.0-12.0)
[2020-11-06] MEDS ORDERED: LORazepam 2 MG/ML INJ IV STA (20:45)
[2020-11-06 20:49] LABS: Partial Thromboplastin Time 20.5 sec (22.0-30.0)
[2020-11-06] MEDS ORDERED: METOCLOPRAMIDE 5 MG/ML 2 ML VIAL IVP STA (21:02)
[2020-11-06] MEDS ORDERED: diphenhydrAMINE 50 MG/ML 1 ML VIAL IVP STA (21:02)
[2020-11-06 21:03] LABS: Appearance,Urine Cloudy (Clear); Bacteria,Urine Rare /hpf; Bilirubin,Urine Negative (Negative); Blood,Urine Negative (Negative); Color,Urine Yellow; Glucose,Urine (UA) 3+ (Negative); Ketones,Urine Trace (Negative); Leukocyte Esterase,Urine Large (Negative); Mucus,Urine Rare /hpf; Nitrite,Urine Negative (Negative); PH, Urine 6.5 (5.0-8.0); Protein,Urine Negative (Negative); RBC,Urine 1 /hpf (0-5); Specific Gravity,Urine 1.023 (1.001-1.035); Squamous Epithelial Cell,Urine 7 /hpf (0-4); Urobilinogen,Urine <2.0 mg/dL (<2.0); WBC,Urine 10 /hpf (0-5)
[2020-11-06 21:24] LABS: Amphetamine Screen,Urine Not Detected (NotDetected); Barbiturate Screen,Urine Not Detected (NotDetected); Benzodiazepines Screen,Urine Not Detected (NotDetected); Cocaine Screen,Urine Not Detected (NotDetected); Methadone Screen, Urine Not Detected (NotDetected); Opiate Screen,Urine Detected (NotDetected); Oxycodone Screen, Urine Not Detected (NotDetected); Phencyclidine Screen,Urine Not Detected (NotDetected); Tricyclic Antidepressant,Urine Detected (NotDetected); Urn Cannabinoid Scrn Not Detected (NotDetected)
[2020-11-06] MEDS ORDERED: MORPHINE SULFATE 4 MG/ML SYRINGE IVP STA (21:47)
[2020-11-06] MEDS ORDERED: NALOXONE 0.4 MG/ML 1 ML VIAL IV PRN (22:03)
[2020-11-06] MEDS ORDERED: ONDANSETRON 4 MG/2 ML VIAL IVP PRN (22:03)
[2020-11-06] MEDS: SODIUM CHLORIDE 0.9% 1,000 ML IV SCH (22:50)
[2020-11-07 00:21] LABS: Acetaminophen <10.0 ug/mL; Magnesium 1.9 mg/dL (1.6-2.3); Phosphorus 1.2 mg/dL (2.5-4.5); Salicylate <1.0 mg/dL
[2020-11-07] MEDS ORDERED: HYDROmorphone 1 MG/ML 1 ML SYRINGE IVP STA (00:29)
[2020-11-07 00:38] LABS: T4, Free (Free Thyroxine) 1.07 ng/dL (0.78-2.19)
[2020-11-07] MEDS ORDERED: METOPROLOL TARTRATE 25 MG TAB PO STA (01:53)
[2020-11-07] MEDS ORDERED: ALPRAZolam 0.25 MG TAB PO STA (01:53)
[2020-11-07] MEDS: DOXEPIN 25 MG CAP PO SCH ×2 (02:06→20:23)
[2020-11-07] MEDS: KETOROLAC 15 MG/ML 1 ML VIAL IVP PRN ×3 (03:23→20:21)
[2020-11-07 06:06] LABS: Glucose,Whole Blood 181 mg/dL (75-99)
[2020-11-07] MEDS: INSULIN ASPART (NovoLOG) 100 UNIT/ML VIAL SQ SCH ×4 (06:33→20:21)
[2020-11-07] MEDS: METOPROLOL TARTRATE 25 MG TAB PO SCH ×2 (09:06→20:21)
[2020-11-07] MEDS ORDERED: METOCLOPRAMIDE 5 MG/ML 2 ML VIAL IVP PRN (09:55)
[2020-11-07] MEDS ORDERED: METOCLOPRAMIDE 5 MG/ML 2 ML VIAL IVP STA (09:55)
[2020-11-07] MEDS ORDERED: Phosphorus Replacement Protoco 1 EACH MISC MISCELLANE PRN (10:03)
[2020-11-07] MEDS ORDERED: Potassium Replacement Protocol 1 EACH MISC MISCELLANE PRN (10:03)
[2020-11-07] MEDS ORDERED: Magnesium Replacement Protocol 1 EACH MISC MISCELLANE PRN (10:03)
--- NOTE | 2020-11-07 10:04 | P.HPIM ---
History of Present Illness This is a pleasant 30 years old female with past medical history of asthma, diabetes mellitus, migraine headache, GERD, degenerative disc disease, endometriosis, lupus, pancreatitis anxiety and depression and PTSD She was admitted to the mental health unit on 06/2020 for major depressive disorders with no psychotic features, PTSD and borderline personality disorder. Patient had multiple visits to the emergency room, each month and average of 3-6 visits for the last 2-3 years Patient went to see her neurologist Dr. Whelan whom she follows up for her migraine headache which she has since age 17 and low back pain for the last 8 years secondary to degenerative disc disease. She goes to Dr. Whelan office to get IV infusion whenever she has migraine headache severe enough, this is the fourth time when she went yesterday and she got IV steroids, Toradol, Reglan and Benadryl in an hour after the infusion she had an episode of presyncope dizziness associated with funny feeling of the chest secondary to palpitation with no chest pain. She never had such reaction before Patient had this migraine headache for 1 week and a half which is unusual for her usually it lasts 3-5 days. And for the last 4 days she is been vomiting constantly like almost every hour as she describes with decreased eating and drinking She was admitted for cardiology team evaluation with echocardiogram requested from emergency room vitals showing tachycardia with heart rate 140, she has baseline tachycardia 110-130 4 more than a year Oxygen saturation 93-94% on room air and patient is afebrile Labs including CBC, BMP and INR are unremarkable Glucose is elevated at 257, liver enzymes are mildly elevated AST 43 and ALT 36, total bilirubin 0.3 TSH is normal at 0.7, free T4 is also normal at 1.0. Troponin are negative 3 with less than 0.012. Urine analysis is suspicious for infection Urine drug screen is positive for opiates and tricyclic antidepressant EKG showing sinus tachycardia at [address]-T changes and QTC is 443 Chest x-ray: Normal Patient emergency room she received normal saline bolus about 2 L and continued on 75 mL/h, she received Zofran, Toradol, Ativan, Benadryl, Reglan, morphine, Dilaudid and Xanax with metoprolol I offered for the patient to do a test, patient declined stating that she is to and she having had a relationship with a man for 6 years Currently patient denies depression, signs or symptoms OF hopelessness/hopelessness. She denies suicidal or end-tidal ideation Review of Systems CONSTITUTIONAL: No fever, no malaise, no fatigue. HEENT: No recent visual problems or hearing problems. Denied any sore throat. CARDIOVASCULAR: No orthopnea, PND, no palpitations, no syncope. PULMONARY: No shortness of breath, no cough, no hemoptysis. GASTROINTESTINAL: No diarrhea, no nausea, no vomiting, no abdominal pain. Normoactive bowel sounds. NEUROLOGICAL: No headaches, no weakness, no numbness. HEMATOLOGICAL: Denies any bleeding or petechiae. GENITOURINARY: Denies any burning micturition, frequency, or urgency. MUSCULOSKELETAL/RHEUMATOLOGICAL: Denies any joint pain, swelling, or any muscle pain. ENDOCRINE: Denies any polyuria or polydipsia. Past Medical History Past Medical History: Asthma, Diabetes Mellitus, GERD/Reflux Additional Past Medical History / Comment(s): migraines, degenerative disk disease, endometriosis, lupus, pancreatitis, covid vaccine moderna History of Any Multi-Drug Resistant Organisms: None Reported Past Surgical History: Orthopedic Surgery Additional Past Surgical History / Comment(s): laparoscopc surgery for endometriosis, cyst removed from left foot, EGD, Past Anesthesia/Blood Transfusion Reactions: Previous Problems w/ Anesthesia Additional Past Anesthesia/Blood Transfusion Reaction / Comment(s): hard to wake up for 48-72 hours after laparoscopic surgery-was in hosp. for 3 days Past Psychological History: Anxiety, Depression, PTSD Smoking Status: Vaper Past Alcohol Use History: Occasional Additional Past Alcohol Use History / Comment(s): pt states that she occasionally has a "glass or two" of vodka that she mixes with Mountain Dew. Past Drug Use History: Marijuana Additional Drug Use History / Comment(s): pt states that "I hit the vape constantly through the day." pt reports that she has a 100 mg vape pen that she refills 6 times per day. - Past Family History Mother Family Medical History: No Reported History Additional Family Medical History / Comment(s): hx migraines Father Family Medical History: Coronary Artery Disease (CAD), Hypertension Additional Family Medical History / Comment(s): ddd, alcoholism & drug use Medications and Allergies Home Medications Medication Instructions Recorded Confirmed Type Omeprazole [PriLOSEC] 40 mg PO HS 11/23/20 07/28/21 History Atorvastatin [Lipitor] 40 mg PO HS 30 Days tab 07/01/20 11/06/20 Rx Ondansetron Odt [Zofran Odt] 4 mg PO Q8HR PRN #10 tab 07/25/20 11/06/20 Rx ARIPiprazole [Abilify] 7.5 mg PO HS 08/13/20 11/06/20 History PARoxetine [Paxil] 10 mg PO HS 08/13/20 11/06/20 History Prazosin [Minipress] 5 mg PO HS 08/13/20 11/06/20 History busPIRone HCL 15 mg PO TID 08/13/20 11/06/20 History clonazePAM [KlonoPIN] 0.5 mg PO Q7D PRN 08/13/20 11/06/20 History diphenhydrAMINE [Benadryl] 50 mg PO HS 08/13/20 11/06/20 History hydrOXYzine pamoate [Vistaril] 50 mg PO QID PRN 08/13/20 11/06/20 History metFORMIN HCL [metFORMIN HCL ER] 750 mg PO W/SUPPER 08/13/20 11/06/20 History Diclofenac Sodium [Voltaren] 75 mg PO BID 11/06/20 11/06/20 History Doxepin HCl [SINEquan] 150 mg PO HS 11/06/20 11/06/20 History Doxycycline Hyclate [Vibramycin] 100 mg PO BID 11/06/20 11/06/20 History Fenofibrate Nanocrystallized 145 mg PO HS 11/06/20 11/06/20 History [Fenofibrate] Montelukast Sodium [Singulair] 10 mg PO HS 11/06/20 11/06/20 History OLANZapine [ZyPREXA] 5 mg PO HS 11/06/20 11/06/20 History Propranolol [Inderal] 10 mg PO TID PRN 11/06/20 11/06/20 History Rimegepant Sulfate [Nurtec Odt] 75 mg PO DAILY PRN 11/06/20 11/06/20 History Rizatriptan Benzoate [Rizatriptan] 10 mg PO BID PRN 11/06/20 11/06/20 History tiZANidine HCL 4 mg PO BID PRN 11/06/20 11/06/20 History Allergies Allergy/AdvReac Type Severity Reaction Status Date / Time bee pollen Allergy Severe Anaphylaxis Verified 11/06/20 22:34 haloperidol [From Haldol] Allergy Severe QUIT Verified 11/06/20 22:34 BREATHING haloperidol lactate Allergy Severe QUIT Verified 11/06/20 22:34 [From Haldol] BREATHING latex Allergy Severe RASH-THROAT Verified 11/06/20 22:34 CLOSES tramadol Allergy Severe Nausea & Verified 11/06/20 22:34 Vomiting murrieta Allergy Anaphylaxis Verified 11/06/20 22:34 coconut Allergy Anaphylaxis Verified 11/06/20 22:34 pineapple Allergy Anaphylaxis Verified 11/06/20 22:34 prednisone Allergy THROAT Verified 11/06/20 22:34 SWELLS spider venom Allergy Swelling Verified 11/06/20 22:34 Sulfa (Sulfonamide Allergy THROAT Verified 11/06/20 22:34 Antibiotics) SWELLS venom-wasp Allergy Swelling Verified 11/06/20 22:34 venom-wasp protein Allergy Swelling Verified 11/06/20 22:34 promethazine HCl AdvReac Severe Nausea & Verified 11/06/20 22:34 [From Phenergan] Vomiting amoxicillin AdvReac Nausea & Verified 11/06/20 22:34 Vomiting ANTS Allergy Mild Anaphylaxis Uncoded 11/06/20 22:34 Physical Exam Vitals: Vital Signs Temp Pulse Pulse Resp BP BP Pulse Ox 11/07/20 04:00 98.3 F 114 H 18 101/66 93 L 11/07/20 02:00 133 H 11/07/20 01:29 99 F 133 H 16 113/75 94 L 11/07/20 00:11 98.3 F 140 H 18 135/92 94 L 11/06/20 19:07 98.1 F 142 H 18 133/90 97 Intake and Output 11/06/20 11/07/20 11/07/20 22:59 06:59 14:59 Intake Total 240 Output Total 450 Balance -210 Intake: Oral 240 Output: Urine 450 Other: Voiding Method Toilet # Voids 1 Weight 104.326 kg 103.7 kg -GENERAL: The patient is alert and oriented x3, not in any acute obese -HEENT: Pupils are round and equally reacting to light. EOMI. No scleral icterus. No conjunctival pallor. Normocephalic, atraumatic. No pharyngeal erythema. No thyromegaly. Dry mucous membranes CARDIOVASCULAR: S1 and S2 present. No murmurs, rubs, or gallops. PULMONARY: Chest is clear to auscultation, no wheezing or crackles. ABDOMEN: Soft, nontender, nondistended, normoactive bowel sounds. No palpable organomegaly. MUSCULOSKELETAL: No joint swelling or deformity. EXTREMITIES: No cyanosis, clubbing, or pedal edema. NEUROLOGICAL: Gross neurological examination did not reveal any focal deficits. SKIN: No rashes. No petechiae Results CBC & Chem 7: 11/06/20 19:47 11/06/20 19:47 Labs: Abnormal Lab Results - Last 24 Hours (Table) 11/06/20 11/06/20 11/06/20 Range/Units 19:47 19:47 19:47 Neutrophils # 8.0 H (1.3-7.7) k/uL APTT 20.5 L (22.0-30.0) sec Sodium 134 L (137-145) mmol/L Carbon Dioxide 19 L (22-30) mmol/L Glucose 257 H (74-99) mg/dL POC Glucose (mg/dL) (75-99) mg/dL Calcium 11.3 H (8.4-10.2) mg/dL Phosphorus (2.5-4.5) mg/dL AST 43 H (14-36) U/L ALT 36 H (4-34) U/L Urine Appearance (Clear) Urine Glucose (UA) (Negative) Urine Ketones (Negative) Ur Leukocyte Esterase (Negative) Urine WBC (0-5) /hpf Ur Squamous Epith Cells (0-4) /hpf Urine Bacteria (None) /hpf Urine Mucus (None) /hpf Urine Opiates Screen (NotDetected) U Tricyclic Antidepress (NotDetected) 11/06/20 11/06/20 11/07/20 Range/Units 19:47 23:25 06:04 Neutrophils # (1.3-7.7) k/uL APTT (22.0-30.0) sec Sodium (137-145) mmol/L Carbon Dioxide (22-30) mmol/L Glucose (74-99) mg/dL POC Glucose (mg/dL) 181 H (75-99) mg/dL Calcium (8.4-10.2) mg/dL Phosphorus 1.2 L (2.5-4.5) mg/dL AST (14-36) U/L ALT (4-34) U/L Urine Appearance Cloudy H (Clear) Urine Glucose (UA) 3+ H (Negative) Urine Ketones Trace H (Negative) Ur Leukocyte Esterase Large H (Negative) Urine WBC 10 H (0-5) /hpf Ur Squamous Epith Cells 7 H (0-4) /hpf Urine Bacteria Rare H (None) /hpf Urine Mucus Rare H (None) /hpf Urine Opiates Screen Detected H (NotDetected) U Tricyclic Antidepress Detected H (NotDetected) Thrombosis Risk Factor Assmnt - Choose All That Apply Each Factor Represents 1 point: Obesity (BMI >25) Thrombosis Risk Factor Assessment Total Risk Factor Score: 1 Thrombosis Risk Factor Assessment Level: Low Risk Assessment and Plan Assessment: Acute urinary tract infection More prolonged migraine headache, suspected due to her UTI Episode of palpitation and presyncope, most likely secondary to dehydration, course of vomiting, lack of eating and IV infusion. Dehydration Diabetes mellitus chronic tachycardia, could be related to stress from her mental health illness, associated with infection Low phosphorus History of asthma History of migraine headache History of GERD History of degenerative disc disease History of endometriosis History of lupus History of pancreatitis History of anxiety, depression and PTSD Plan: Ceftriaxone for UTI and follow-up urine culture Check hemoglobin A1c replace phosphorus per protocol Continue with IV fluid normal saline and an increased rate to 150 Start naproxen scheduled twice a day, Fioricet when necessary and Reglan when necessary. If no improvement. Consider neurology Labs and medication were reviewed.. Continue same treatment. Continue with symptomatic treatment. Resume home medication. Monitor lytes and vitals. DVT and GI prophylaxis. Further recommendations depends on the clinical course of the patient DVT prophylaxis: Subcutaneous heparin GI Prophylaxis: Pepcid PT/OT: Pending Prognosis is guarded
[2020-11-07 10:28] LABS: Basophils % (A) 0 %; Eosinophils % (A) 0 %; HCT 37.7 % (34.0-46.0); HGB 12.7 gm/dL (11.4-16.0); Lymphocytes # (A) 1.2 k/uL (1.0-4.8); Lymphocytes % (A) 10 %; MCH 31.5 pg (25.0-35.0); MCHC 33.7 g/dL (31.0-37.0); MCV 93.6 fL (80.0-100.0); Mean Platelet Volume 8.5; Monocytes # (A) 0.1 k/uL (0-1.0); Monocytes % (A) 1 %; Neutrophils # (A) 10.3 k/uL (1.3-7.7); Neutrophils % (A) 88 %; Platelet Count 273 k/uL (150-450); RBC 4.03 m/uL (3.80-5.40); RDW 13.7 % (11.5-15.5); WBC 11.7 k/uL (3.8-10.6)
[2020-11-07 10:36] LABS: African American GFR (CKD) >90 (>60 ml/min/1.73 sqM); Anion Gap 11 mmol/L; Blood Urea Nitrogen 15 mg/dL (7-17); Calcium 10.2 mg/dL (8.4-10.2); Carbon Dioxide 18 mmol/L (22-30); Chloride 107 mmol/L (98-107); Glucose 206 mg/dL (74-99); Magnesium 1.8 mg/dL (1.6-2.3); Non-African American GFR(CKD) >90 (>60 ml/min/1.73 sqM); Phosphorus 2.1 mg/dL (2.5-4.5); Potassium 4.5 mmol/L (3.5-5.1); Sodium 136 mmol/L (137-145)
--- NOTE | 2020-11-07 10:41 | ECHOF ---
Referral Reason:Tachycardia MEASUREMENTS -------- HEIGHT: 162.6 cm WEIGHT: 104.3 kg BP: RVIDd: 2.1 cm (< 3.3) IVSd: 1.3 cm (0.6 - 1.1) LVIDd: 3.1 cm (3.9 - 5.3) LVPWd: 1.3 cm (0.6 - 1.1) IVSs: 1.8 cm LVIDs: 1.6 cm LVPWs: 1.7 cm Ao Diam: 2.9 cm (2.0 - 3.7) AV Cusp: 2.3 cm (1.5 - 2.6) LA Diam: 2.8 cm (2.7 - 3.8) MV EXCURSION: 20.954 mm (> 18.000) MV EF SLOPE: 85 mm/s (70 - 150) EPSS: 0.8 cm MV E Jose L: 0.95 m/s MV DecT: 151 ms MV A Jose L: 0.44 m/s MV E/A Ratio: 2.15 RAP: 5.00 mmHg RVSP: 14.52 mmHg FINDINGS -------- This was a technically difficult study with suboptimal views. The left ventricular size is normal. There is mild concentric left ventricular hypertrophy. Overa ll left ventricular systolic function is normal with, an EF between 55 - 60 %. The right ventricle is normal in size. The left atrial size is normal. The right atrial size is normal. Lumason used The aortic valve is trileaflet and appears structurally normal. The mitral valve is normal. There is trace mitral regurgitation. The tricuspid valve appears structurally normal. Trace tricuspid regurgitation present. Right oseas tricular systolic pressure is normal at < 35 mmHg. There is no pulmonic regurgitation present. The aortic root size is normal. IVC Not well visulized. There is no pericardial effusion. CONCLUSIONS -------- 1. The left ventricular size is normal. 2. There is mild concentric left ventricular hypertrophy. 3. Overall left ventricular systolic function is normal with, an EF between 55 - 60 %. 4. There is trace mitral regurgitation. 5. Trace tricuspid regurgitation present. 6. There is no pericardial effusion. FISHER TROLL LINE: María Elena Cole [facility]
[2020-11-07] MEDS: NAPROXEN 250 MG TAB PO SCH ×2 (10:54→20:21)
[2020-11-07] MEDS: PANTOPRAZOLE 40 MG/10 ML VIAL IVP SCH (10:54)
[2020-11-07] MEDS: HEPARIN SODIUM,PORCINE/PF 5,000 UNIT/0.5 ML SYRINGE SQ SCH ×2 (10:55→20:20)
[2020-11-07] MEDS: BUTA/APAP/CAF/COD 50-325-40-30 CAP PO PRN ×2 (10:55→19:43)
[2020-11-07] MEDS: SODIUM CHLORIDE 0.9% 1,000 ML IV SCH ×2 (10:56→20:20)
--- NOTE | 2020-11-07 12:43 | P.CRDCN ---
History of Present Illness History of present illness: HISTORY OF PRESENTING ILLNESS This is a pleasant 30-year-old female past medical history significant for with migraines asthma, GERD, anxiety, depression, PTSD, marijuana use . 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 We have been asked to see in consultation for tachycardia. Patient is seen and examined at bedside, no acute distress. Patient went to see her neurologist whom she follows up for her migraine headache. She went to get an IV infusion yesterday, which is the fourth time, s he got IV steroids, Toradol, Reglan and Benadryl. She went home, had some pizza. About an hour after the infusion she had an episode of presyncope dizziness associated with funny feeling of the chest secondary to palpitation with no chest pain. She also had nausea and multiple episodes of emesis. She denies any chest pain, shortness of breath. She did feel lightheaded and dizzy. No syncope. Denies symptoms of orthopnea or PND. She has never had this reaction before, and decided to present to the emergency department. She denies any history of cardiac disease. Denies history of [place], Stroke, HTN. She denies alcohol use, illicit drug use. She does smoke marijuana daily. She is on numerous medications. She denies any family history of heart disease, she is adopted. EKG admission showed sinus tachycardia, heart rate in the 130s, nonspecific STT wave abnormalities. Chest x-ray with no acute cardiopulmonary process. Left ear reviewed WBC 11.7, hemoglobin 0.7, platelets 273, sodium 136, potassium 4.5, BUN 15, serum creatinine 0.67, troponin negative 3, TSH within normal limits. Urine drug screen positive for opiates and tricyclic antidepressants. She was doing metoprolol titrate 25 mg by mouth. Home cardiac medications include propanolol 10 mg 3 times a day when necessary, atorvastatin 40 mg nightly. Echocardiogram reveals an EF of 55-60%, no wall motion abnormalities. REVIEW OF SYSTEMS At the time of my exam: CONSTITUTIONAL: Denies fever or chills. CARDIOVASCULAR: +palpitations, Denies chest pain, shortness of breath, orthopnea, PND RESPIRATORY: Denies cough. GASTROINTESTINAL: +nausea +vomiting. Denies abdominal pain, diarrhea, constipation, vomiting. MUSCULOSKELETAL: Denies myalgias. NEUROLOGIC: +lightheadedness, dizziness. Denies numbness, tingling, headacbe or weakness. ENDOCRINE: Denies fatigue, weight change, polydipsia or polyurina. GENITOURINARY: Denies burning, hematuria or urgency with micturation. HEMATOLOGIC: Denies history of anemia or bleeding. PHYSICAL EXAMINATION Blood pressure 101/66 heart rate 104 afebrile and maintaining oxygen saturation on 97% on room air CONSTITUTIONAL: No apparent distress. HEENT: Head is normocephalic. Pupils are equal, round. Sclerae anicteric. Mucous membranes of the mouth are moist. No JVD. No carotid bruit. CHEST EXAMINATION: Lungs are clear to auscultation. No chest wall tenderness is noted on palpation or with deep breathing. HEART EXAMINATION: Regular tachycardic rate and rhythm. S1, S2 heard. No murmurs, gallops or rub. ABDOMEN: Soft, nontender. Positive bowel sounds. EXTREMITIES: 2+ peripheral pulses, no lower extremity edema and no calf tenderness. NEUROLOGIC EXAMINATION: Patient is awake, alert and oriented x3. ASSESSMENT Sinus tachycardia, most likely related to patient's reaction to her infusion yesterday Episode of palpation and presyncope, most likely related to her reaction to her infusion, dehydration due to her nausea and multiple episodes of emesis Nausea and Vomiting History of Migraines Asthma GERD Anxiety Depression PTSD Marijuana use PLAN Echocardiogram results reviewed, normal EF, no abnormalities seen From a cardiology perspective, no further cardiac workup indicated Rest of management per primary team We will sign off at this time, please reach out for further questions or concerns. Nurse Practitioner note has been reviewed, I agree with a documented findings and plan of care. Patient was seen and examined. Past Medical History Past Medical History: Asthma, Diabetes Mellitus, GERD/Reflux Additional Past Medical History / Comment(s): migraines, degenerative disk disease, endometriosis, lupus, pancreatitis, covid vaccine moderna History of Any Multi-Drug Resistant Organisms: None Reported Past Surgical History: Orthopedic Surgery Additional Past Surgical History / Comment(s): laparoscopc surgery for endometriosis, cyst removed from left foot, EGD, Past Anesthesia/Blood Transfusion Reactions: Previous Problems w/ Anesthesia Additional Past Anesthesia/Blood Transfusion Reaction / Comment(s): hard to wake up for 48-72 hours after laparoscopic surgery-was in hosp. for 3 days Past Psychological History: Anxiety, Depression, PTSD Smoking Status: Vaper Past Alcohol Use History: Occasional Additional Past Alcohol Use History / Comment(s): pt states that she occasionally has a "glass or two" of vodka that she mixes with Mountain Dew. Past Drug Use History: Marijuana Additional Drug Use History / Comment(s): pt states that "I hit the vape constantly through the day." pt reports that she has a 100 mg vape pen that she refills 6 times per day. - Past Family History Mother Family Medical History: No Reported History Additional Family Medical History / Comment(s): hx migraines Father Family Medical History: Coronary Artery Disease (CAD), Hypertension Additional Family Medical History / Comment(s): ddd, alcoholism & drug use Medications and Allergies Home Medications Medication Instructions Recorded Confirmed Type Omeprazole [PriLOSEC] 40 mg PO HS 03/04/20 11/06/20 History Atorvastatin [Lipitor] 40 mg PO HS 30 Days tab 07/01/20 11/06/20 Rx Ondansetron Odt [Zofran Odt] 4 mg PO Q8HR PRN #10 tab 07/25/20 11/06/20 Rx ARIPiprazole [Abilify] 7.5 mg PO HS 08/13/20 11/06/20 History PARoxetine [Paxil] 10 mg PO HS 08/13/20 11/06/20 History Prazosin [Minipress] 5 mg PO HS 08/13/20 11/06/20 History busPIRone HCL 15 mg PO TID 08/13/20 11/06/20 History clonazePAM [KlonoPIN] 0.5 mg PO Q7D PRN 08/13/20 11/06/20 History diphenhydrAMINE [Benadryl] 50 mg PO HS 08/13/20 11/06/20 History hydrOXYzine pamoate [Vistaril] 50 mg PO QID PRN 08/13/20 11/06/20 History metFORMIN HCL [metFORMIN HCL ER] 750 mg PO W/SUPPER 08/13/20 11/06/20 History Diclofenac Sodium [Voltaren] 75 mg PO BID 11/06/20 11/06/20 History Doxepin HCl [SINEquan] 150 mg PO HS 11/06/20 11/06/20 History Doxycycline Hyclate [Vibramycin] 100 mg PO BID 11/06/20 11/06/20 History Fenofibrate Nanocrystallized 145 mg PO HS 11/06/20 11/06/20 History [Fenofibrate] Montelukast Sodium [Singulair] 10 mg PO HS 11/06/20 11/06/20 History OLANZapine [ZyPREXA] 5 mg PO HS 11/06/20 11/06/20 History Propranolol [Inderal] 10 mg PO TID PRN 11/06/20 11/06/20 History Rimegepant Sulfate [Nurtec Odt] 75 mg PO DAILY PRN 11/06/20 11/06/20 History Rizatriptan Benzoate [Rizatriptan] 10 mg PO BID PRN 11/06/20 11/06/20 History tiZANidine HCL 4 mg PO BID PRN 11/06/20 11/06/20 History Allergies Allergy/AdvReac Type Severity Reaction Status Date / Time bee pollen Allergy Severe Anaphylaxis Verified 11/06/20 22:34 haloperidol [From Haldol] Allergy Severe QUIT Verified 11/06/20 22:34 BREATHING haloperidol lactate Allergy Severe QUIT Verified 11/06/20 22:34 [From Haldol] BREATHING latex Allergy Severe RASH-THROAT Verified 11/06/20 22:34 CLOSES tramadol Allergy Severe Nausea & Verified 11/06/20 22:34 Vomiting murrieta Allergy Anaphylaxis Verified 11/06/20 22:34 coconut Allergy Anaphylaxis Verified 11/06/20 22:34 pineapple Allergy Anaphylaxis Verified 11/06/20 22:34 prednisone Allergy THROAT Verified 11/06/20 22:34 SWELLS spider venom Allergy Swelling Verified 11/06/20 22:34 Sulfa (Sulfonamide Allergy THROAT Verified 11/06/20 22:34 Antibiotics) SWELLS venom-wasp Allergy Swelling Verified 11/06/20 22:34 venom-wasp protein Allergy Swelling Verified 11/06/20 22:34 promethazine HCl AdvReac Severe Nausea & Verified 11/06/20 22:34 [From Phenergan] Vomiting amoxicillin AdvReac Nausea & Verified 11/06/20 22:34 Vomiting ANTS Allergy Mild Anaphylaxis Uncoded 11/06/20 22:34 Physical Exam Vitals: Vital Signs Temp Pulse Pulse Resp BP BP Pulse Ox 11/07/20 08:00 97.8 F 104 H 18 128/78 97 11/07/20 04:00 98.3 F 114 H 18 101/66 93 L 11/07/20 02:00 133 H 11/07/20 01:29 99 F 133 H 16 113/75 94 L 11/07/20 00:11 98.3 F 140 H 18 135/92 94 L 11/06/20 19:07 98.1 F 142 H 18 133/90 97 Intake and Output 11/06/20 11/07/20 11/07/20 22:59 06:59 14:59 Intake Total 240 Output Total 450 Balance -210 Intake: Oral 240 Output: Urine 450 Other: Voiding Method Toilet # Voids 1 Weight 104.326 kg 103.7 kg Results 11/07/20 03:31 11/07/20 03:31 Cardiac Enzymes 11/06/20 11/06/20 11/07/20 Range/Units 19:47 19:47 00:34 AST 43 H (14-36) U/L Troponin I <0.012 <0.012 (0.000-0.034) ng/mL 11/07/20 Range/Units 03:34 AST (14-36) U/L Troponin I <0.012 (0.000-0.034) ng/mL Coagulation 11/06/20 Range/Units 19:47 PT 10.2 (9.0-12.0) sec APTT 20.5 L (22.0-30.0) sec CBC 11/06/20 11/07/20 Range/Units 19:47 03:31 WBC 9.1 11.7 H (3.8-10.6) k/uL RBC 4.51 4.03 (3.80-5.40) m/uL Hgb 14.2 12.7 (11.4-16.0) gm/dL Hct 41.4 37.7 (34.0-46.0) % Plt Count 264 273 (150-450) k/uL Comprehensive Metabolic Panel 11/06/20 11/07/20 Range/Units 19:47 03:31 Sodium 134 L 136 L (137-145) mmol/L Potassium 4.8 4.5 (3.5-5.1) mmol/L Chloride 102 107 (98-107) mmol/L Carbon Dioxide 19 L 18 L (22-30) mmol/L BUN 15 15 (7-17) mg/dL Creatinine 0.82 0.67 (0.52-1.04) mg/dL Glucose 257 H 206 H (74-99) mg/dL Calcium 11.3 H 10.2 (8.4-10.2) mg/dL AST 43 H (14-36) U/L ALT 36 H (4-34) U/L Alkaline Phosphatase 76 (38-126) U/L Total Protein 7.6 (6.3-8.2) g/dL Albumin 4.6 (3.5-5.0) g/dL Current Medications Generic Name Dose Route Start Last Admin Trade Name Freq PRN Reason Stop Dose Admin Acetam/Butalbital/Caffeine/Codeine 1 each 11/07/20 09:54 11/07/20 10:55 Buta/Apap/Caf/Cod [id number] Cap PO 1 each Q8HR PRN Administration Headache Doxepin HCl 150 mg 11/07/20 02:00 11/07/20 02:06 Doxepin 25 Mg Cap PO 150 mg HS JIMENA Administration Heparin Sodium (Porcine) 5,000 unit 11/07/20 10:00 11/07/20 10:55 Heparin Sodium,Porcine/Pf 5,000 Unit/0.5 Ml Syringe SQ 5,000 unit Q12H JIMENA Administration Sodium Chloride 1,000 mls @ 150 mls/hr 11/06/20 22:15 11/07/20 10:56 Saline 0.9% IV 150 mls/hr .Q6H40M JIMENA Administration Ceftriaxone Sodium 1 gm/ 50 mls @ 100 mls/hr 11/07/20 10:00 Sodium Chloride IVPB Q24H JIMENA Insulin Aspart 0 unit 11/07/20 07:30 11/07/20 06:33 Insulin Aspart (Novolog) 100 Unit/Ml Vial SQ 3 unit ACHS JIMENA Administration Protocol Ketorolac Tromethamine 15 mg 11/06/20 22:03 11/07/20 09:06 Ketorolac 15 Mg/Ml 1 Ml Vial IVP 11/09/20 22:04 15 mg Q6HR PRN Administration Moderate Pain Metoclopramide HCl 10 mg 11/07/20 09:55 Metoclopramide 5 Mg/Ml 2 Ml Vial IVP Q6HR PRN Nausea Metoprolol Tartrate 25 mg 11/07/20 09:00 11/07/20 09:06 Metoprolol Tartrate 25 Mg Tab PO 25 mg BID JIMENA Administration Miscellaneous Information 1 each 11/07/20 10:03 Potassium Replacement Protocol 1 Each Misc MISCELLANE DAILY PRN Per Protocol Protocol Miscellaneous Information 1 each 11/07/20 10:03 Magnesium Replacement Protocol 1 Each Misc MISCELLANE DAILY PRN Per Protocol Protocol Miscellaneous Information 1 each 11/07/20 10:03 Phosphorus Replacement Protoco 1 Each Misc MISCELLANE DAILY PRN Per Protocol Protocol Naloxone HCl 0.2 mg 11/06/20 22:03 Naloxone 0.4 Mg/Ml 1 Ml Vial IV Q2M PRN Opioid Reversal Naproxen 500 mg 11/07/20 10:00 11/07/20 10:54 Naproxen 250 Mg Tab PO 500 mg BID JIMENA Administration Ondansetron HCl 4 mg 11/06/20 22:03 Ondansetron 4 Mg/2 Ml Vial IVP Q8HR PRN Nausea And Vomiting Pantoprazole Sodium 40 mg 11/07/20 10:00 11/07/20 10:54 Pantoprazole 40 Mg/10 Ml Vial IVP 40 mg DAILY JIMENA Administration Intake and Output 11/06/20 11/07/20 11/07/20 22:59 06:59 14:59 Intake Total 240 Output Total 450 Balance -210 Intake: Oral 240 Output: Urine 450 Other: Voiding Method Toilet # Voids 1 Weight 104.326 kg 103.7 kg 11/07/20 03:31 11/07/20 03:31
[2020-11-07 12:51] LABS: Glucose,Whole Blood 164 mg/dL (75-99)
[2020-11-07 14:57] LABS: Appearance,Urine Clear (Clear); Bilirubin,Urine Negative (Negative); Blood,Urine Negative (Negative); Color,Urine Light Yellow; Glucose,Urine (UA) 2+ (Negative); Ketones,Urine Negative (Negative); Leukocyte Esterase,Urine Moderate (Negative); Mucus,Urine Rare /hpf; Nitrite,Urine Negative (Negative); PH, Urine 6.5 (5.0-8.0); Protein,Urine Negative (Negative); RBC,Urine 1 /hpf (0-5); Specific Gravity,Urine 1.015 (1.001-1.035); Squamous Epithelial Cell,Urine 1 /hpf (0-4); Urobilinogen,Urine <2.0 mg/dL (<2.0); WBC,Urine 2 /hpf (0-5)
[2020-11-07] MEDS ORDERED: VALPROATE SODIUM 250 MG in SODIUM CHLORIDE 0.9% 100 ML IVPB STA (15:33)
[2020-11-07 17:10] LABS: Glucose,Whole Blood 165 mg/dL (75-99)
[2020-11-07 18:18] LABS: Hemoglobin A1C 7.4 % (4.0-6.0)
--- NOTE | 2020-11-07 18:37 | P.CNNES ---
History of Present Illness Consult date: 11/07/20 Requesting physician: Adiel E Sheet Reason for Consult: Resistant migraine History of Present Illness: Patient is a 30-year-old female came to the hospital yesterday at 7:06 PM, came to the hospital for evaluation of dizziness and palpitations after receiving an infusion at her doctor's office for migraines. She was given Toradol, Reglan, Solu-Medrol and Benadryl. When she left, she started feeling unwell. She was nauseated and did vomit. The dizziness felt like she was going to pass out. She is having palpitations, like her heart is going to beat out of her chest. No fever or chills. Vital signs on arrival blood pressure 133/90, pulse rate 142, temperature 98.1. Chest x-ray normal, EKG shows sinus tachycardia with right axis deviation. Patient so far has received naproxen, Fioricet with codeine, morphine 4 mg, Dilaudid 1 mg IV push. Patient believes that morphine and Dilaudid had the migraines to some extent and wants to have another dose. Also has received Toradol 15 mg, magnesium, Reglan, Zofran 2-D echo showed normal left-ventricular size. Mild concentric LVH. EF is between 55-60%. Blood tests shows WBC 11.7 hemoglobin 12.7 platelets 273. Sodium 136 potassium 4.5, normal renal functions. Troponin is negative. B12 354 on 01/02/2019 and folate 10.6. Patient had a previous computed tomography scan of cervical spine on 10/02/2020 which showed no acute fracture or dislocation evident in the cervical spine. Computed tomography scan of the head showed no acute intracranial hemorrhage, mass effect or midline shift. I reviewed computed tomography scan, shows no evidence of paranasal sinus disease. MRI of the brain without contrast performed on 01/23/2019 showed unremarkable MRI. Patient's home medications list include Abilify 7.5 mg, BuSpar 15 mg 3 times a day, clonazepam 0.5 mg every 7 day when necessary, hydroxyzine 50 mg 4 times a day when necessary, Paxil 10 mg at bedtime, Benadryl as needed, metformin, prazosin 5 mg, Zanaflex 4 mg twice a day when necessary, propranolol 10 mg 3 times a day, Maxalt 10 mg twice a day when necessary, Nurtec 75 mg when necessary, doxepin 150 mg at bedtime, Olanzepine 5 mg at bedtime. Out of these, patient states that she has stopped taking Zyprexa a month ago because of pancreatitis. She also stopped taking propranolol about 1-1/2 months ago. All other medications listed she is taking. Vistaril she takes about once or twice a day every day. She believes that she takes all the medication because of anxiety and PTSD. Patient has history of migraines since she was age 17. She gets migraines twice a month that lasts for 3-5 days. The current headache started about 4 days ago on Wednesday. It involves bifrontal temporal region with nausea sometimes vomiting. She gets light and noise sensitive. She follows up with Dr. Dorado. Patient has previously tried Topamax, but it did not work. She was given sample of Emgality by her neurologist, which did work, but prescription was not filled, possibly due to prior authorization needing. She currently takes Maxalt or Imitrex as needed. It did not work at this time. Patient states that she had undergone lumbar puncture at her neurologist office 2 years ago which was normal. Does not know if opening pressure was checked. Patient denies tobacco or alcohol use. She quit vaping 6 weeks ago. It used to help her anxiety. Does not do any drugs. At present she continues to have migraine, rates 9/10. The migraine would not go away. She does not take any -control pills. Patient has been seen by cuff stitcher and started on metoprolol 25 mg twice a day. This hopefully will help with her migraines also. Review of Systems As mentioned appear in detail. All other review of systems completely unremarkable. Denies any chest pain, abdominal pain. She does have some nausea. She is light sensitive. No loss of vision. No numbness tingling focal weakness, slurred speech. No weight loss, no fever or chills. Past Medical History Past Medical History: Asthma, Diabetes Mellitus, GERD/Reflux Additional Past Medical History / Comment(s): migraines, degenerative disk disease, endometriosis, lupus, pancreatitis, covid vaccine moderna History of Any Multi-Drug Resistant Organisms: None Reported Past Surgical History: Orthopedic Surgery Additional Past Surgical History / Comment(s): laparoscopc surgery for endometriosis, cyst removed from left foot, EGD, Past Anesthesia/Blood Transfusion Reactions: Previous Problems w/ Anesthesia Additional Past Anesthesia/Blood Transfusion Reaction / Comment(s): hard to wake up for 48-72 hours after laparoscopic surgery-was in hosp. for 3 days Past Psychological History: Anxiety, Depression, PTSD Smoking Status: Vaper Past Alcohol Use History: Occasional Additional Past Alcohol Use History / Comment(s): pt states that she occasionally has a "glass or two" of vodka that she mixes with Mountain Dew. Past Drug Use History: Marijuana Additional Drug Use History / Comment(s): pt states that "I hit the vape constantly through the day." pt reports that she has a 100 mg vape pen that she refills 6 times per day. - Past Family History Mother Family Medical History: No Reported History Additional Family Medical History / Comment(s): hx migraines Father Family Medical History: Coronary Artery Disease (CAD), Hypertension Additional Family Medical History / Comment(s): ddd, alcoholism & drug use Medications and Allergies Home Medications Medication Instructions Recorded Confirmed Type Omeprazole [PriLOSEC] 40 mg PO HS 03/04/20 11/06/20 History Atorvastatin [Lipitor] 40 mg PO HS 30 Days tab 07/01/20 11/06/20 Rx Ondansetron Odt [Zofran Odt] 4 mg PO Q8HR PRN #10 tab 07/25/20 11/06/20 Rx ARIPiprazole [Abilify] 7.5 mg PO HS 08/13/20 11/06/20 History PARoxetine [Paxil] 10 mg PO HS 08/13/20 11/06/20 History Prazosin [Minipress] 5 mg PO HS 08/13/20 11/06/20 History busPIRone HCL 15 mg PO TID 08/13/20 11/06/20 History clonazePAM [KlonoPIN] 0.5 mg PO Q7D PRN 08/13/20 11/06/20 History diphenhydrAMINE [Benadryl] 50 mg PO HS 08/13/20 11/06/20 History hydrOXYzine pamoate [Vistaril] 50 mg PO QID PRN 08/13/20 11/06/20 History metFORMIN HCL [metFORMIN HCL ER] 750 mg PO W/SUPPER 08/13/20 11/06/20 History Diclofenac Sodium [Voltaren] 75 mg PO BID 11/06/20 11/06/20 History Doxepin HCl [SINEquan] 150 mg PO HS 11/06/20 11/06/20 History Doxycycline Hyclate [Vibramycin] 100 mg PO BID 11/06/20 11/06/20 History Fenofibrate Nanocrystallized 145 mg PO HS 11/06/20 11/06/20 History [Fenofibrate] Montelukast Sodium [Singulair] 10 mg PO HS 11/06/20 11/06/20 History OLANZapine [ZyPREXA] 5 mg PO HS 11/06/20 11/06/20 History Propranolol [Inderal] 10 mg PO TID PRN 11/06/20 11/06/20 History Rimegepant Sulfate [Nurtec Odt] 75 mg PO DAILY PRN 11/06/20 11/06/20 History Rizatriptan Benzoate [Rizatriptan] 10 mg PO BID PRN 11/06/20 11/06/20 History tiZANidine HCL 4 mg PO BID PRN 11/06/20 11/06/20 History Allergies Allergy/AdvReac Type Severity Reaction Status Date / Time bee pollen Allergy Severe Anaphylaxis Verified 11/06/20 22:34 haloperidol [From Haldol] Allergy Severe QUIT Verified 11/06/20 22:34 BREATHING haloperidol lactate Allergy Severe QUIT Verified 11/06/20 22:34 [From Haldol] BREATHING latex Allergy Severe RASH-THROAT Verified 11/06/20 22:34 CLOSES tramadol Allergy Severe Nausea & Verified 11/06/20 22:34 Vomiting murrieta Allergy Anaphylaxis Verified 11/06/20 22:34 coconut Allergy Anaphylaxis Verified 11/06/20 22:34 pineapple Allergy Anaphylaxis Verified 11/06/20 22:34 prednisone Allergy THROAT Verified 11/06/20 22:34 SWELLS spider venom Allergy Swelling Verified 11/06/20 22:34 Sulfa (Sulfonamide Allergy THROAT Verified 11/06/20 22:34 Antibiotics) SWELLS venom-wasp Allergy Swelling Verified 11/06/20 22:34 venom-wasp protein Allergy Swelling Verified 11/06/20 22:34 promethazine HCl AdvReac Severe Nausea & Verified 11/06/20 22:34 [From Phenergan] Vomiting amoxicillin AdvReac Nausea & Verified 11/06/20 22:34 Vomiting ANTS Allergy Mild Anaphylaxis Uncoded 11/06/20 22:34 Physical Examination - Vital Signs Vital Signs: Vital Signs Temp Pulse Pulse Resp BP BP Pulse Ox 11/07/20 08:00 97.8 F 104 H 18 128/78 97 11/07/20 04:00 98.3 F 114 H 18 101/66 93 L 11/07/20 02:00 133 H 11/07/20 01:29 99 F 133 H 16 113/75 94 L 11/07/20 00:11 98.3 F 140 H 18 135/92 94 L 11/06/20 19:07 98.1 F 142 H 18 133/90 97 Intake and Output 11/06/20 11/07/20 11/07/20 22:59 06:59 14:59 Intake Total 240 Output Total 450 700 Balance -210 -700 Intake: Oral 240 Output: Urine 450 700 Other: Voiding Method Toilet # Voids 1 2 Weight 104.326 kg 103.7 kg Patient is a young female, who is laying in a dark room, with sunglasses on. She states is photophobic. Patient is alert awake oriented to time place and person. Speech and language functions are normal. No aphasia or dysarthria. Attention, concentration and fund of knowledge is adequate. On cranial examination, pupils are round and reacting to light, visual [place] are full on confrontation, extraocular muscles are intact with no nystagmus. Face is symmetric, tongue protrudes to the midline. Palatal elevation and sensation normal, hearing and shoulder shrug normal, facial sensation normal. Shoulder shrug normal. On muscle strength testing, there is no pronator drift and the strength is normal in arms and legs distally and proximally. Deep tendon reflexes are 1+ to 2+ and plantars downgoing. Sensory to touch is equal with no neglect. Cerebellar function showed no ataxia for [id number] testing. No dysdiadochokinesia. Tone and bulk of muscles normal. Gait normal. On general examination, there is no carotid bruit or murmur, S1-S2 audible. Abdomen is soft nontender. Chest is clear. Peripheral pulses are present. No edema. Results - Laboratory Findings CBC and BMP: 11/07/20 03:31 11/07/20 03:31 Abnormal Lab Findings: Abnormal Labs 0711/06/20 11/06/20 19:47 19:47 19:47 WBC Neutrophils # 8.0 H APTT 20.5 L Sodium 134 L Carbon Dioxide 19 L Glucose 257 H POC Glucose (mg/dL) Calcium 11.3 H Phosphorus AST 43 H ALT 36 H Urine Appearance Urine Glucose (UA) Urine Ketones Ur Leukocyte Esterase Urine WBC Ur Squamous Epith Cells Urine Bacteria Urine Mucus Urine Opiates Screen U Tricyclic Antidepress 11/06/20 11/06/20 11/07/20 19:47 23:25 03:31 WBC 11.7 H Neutrophils # 10.3 H APTT Sodium Carbon Dioxide Glucose POC Glucose (mg/dL) Calcium Phosphorus 1.2 L AST ALT Urine Appearance Cloudy H Urine Glucose (UA) 3+ H Urine Ketones Trace H Ur Leukocyte Esterase Large H Urine WBC 10 H Ur Squamous Epith Cells 7 H Urine Bacteria Rare H Urine Mucus Rare H Urine Opiates Screen Detected H U Tricyclic Antidepress Detected H 11/07/20 11/07/20 11/07/20 03:31 06:04 12:20 WBC Neutrophils # APTT Sodium 136 L Carbon Dioxide 18 L Glucose 206 H POC Glucose (mg/dL) 181 H 164 H Calcium Phosphorus 2.1 L AST ALT Urine Appearance Urine Glucose (UA) Urine Ketones Ur Leukocyte Esterase Urine WBC Ur Squamous Epith Cells Urine Bacteria Urine Mucus Urine Opiates Screen U Tricyclic Antidepress Assessment and Plan Assessment: * Migraine headache, came with a persistent migraine, that started 11/04/2020. Plan: * Trial of Depacon 250 mg IV push. * I would avoid steroids cause of palpitations. Patient does not take excessive caffeine. * Continue Fioricet as needed. * Continue metoprolol 25 mg twice a day. It will help with migraine prophylaxis as well. * If the headache persists, may consider lumbar puncture to rule out pseudotumor. * Dr. Demario Casanova will follow patient in the morning.
[2020-11-07 19:47] LABS: Glucose,Whole Blood 207 mg/dL (75-99)
[2020-11-07] MEDS: tiZANidine 4 MG TAB PO PRN (23:03)
[2020-11-07] MEDS: VALPROATE SODIUM 250 MG in SODIUM CHLORIDE 0.9% 100 ML IVPB SCH (23:03)
[2020-11-08] MEDS: VALPROATE SODIUM 250 MG in SODIUM CHLORIDE 0.9% 100 ML IVPB SCH (05:55)
[2020-11-08] MEDS: SODIUM CHLORIDE 0.9% 1,000 ML IV SCH ×4 (05:55→22:18)
[2020-11-08] MEDS: BUTA/APAP/CAF/COD 50-325-40-30 CAP PO PRN ×2 (05:59→16:35)
[2020-11-08 06:03] LABS: Glucose,Whole Blood 264 mg/dL (75-99)
[2020-11-08] MEDS: INSULIN ASPART (NovoLOG) 100 UNIT/ML VIAL SQ SCH ×4 (06:03→22:35)
[2020-11-08] MEDS ORDERED: metFORMIN 500 MG TAB PO SCH (07:30)
[2020-11-08 07:43] LABS: Basophils % (A) 0 %; Eosinophils % (A) 0 %; Lymphocytes # (A) 3.3 k/uL (1.0-4.8); Lymphocytes % (A) 36 %; MCH 31.3 pg (25.0-35.0); MCHC 33.3 g/dL (31.0-37.0); Monocytes # (A) 0.3 k/uL (0-1.0); Monocytes % (A) 4 %; Neutrophils # (A) 5.3 k/uL (1.3-7.7); Neutrophils % (A) 58 %; Platelet Count 250 k/uL (150-450); RBC 3.83 m/uL (3.80-5.40); RDW 13.2 % (11.5-15.5)
[2020-11-08 07:49] LABS: African American GFR (CKD) >90 (>60 ml/min/1.73 sqM); Anion Gap 9 mmol/L; Blood Urea Nitrogen 15 mg/dL (7-17); Calcium 9.7 mg/dL (8.4-10.2); Carbon Dioxide 18 mmol/L (22-30); Chloride 108 mmol/L (98-107); Glucose 271 mg/dL (74-99); Magnesium 1.8 mg/dL (1.6-2.3); Non-African American GFR(CKD) >90 (>60 ml/min/1.73 sqM); Phosphorus 2.8 mg/dL (2.5-4.5); Potassium 4.2 mmol/L (3.5-5.1); Sodium 135 mmol/L (137-145)
[2020-11-08] MEDS: HEPARIN SODIUM,PORCINE/PF 5,000 UNIT/0.5 ML SYRINGE SQ SCH ×2 (08:47→22:37)
[2020-11-08] MEDS: PANTOPRAZOLE 40 MG/10 ML VIAL IVP SCH (08:47)
[2020-11-08] MEDS: METOPROLOL TARTRATE 25 MG TAB PO SCH ×2 (08:48→22:35)
[2020-11-08] MEDS: tiZANidine 4 MG TAB PO PRN ×2 (08:48→22:41)
[2020-11-08] MEDS ORDERED: AMITRIPTYLINE HCL 25 MG TAB PO STA (11:13)
[2020-11-08 11:15] VITALS: BMI 39.9
[2020-11-08] MEDS: DIVALPROEX ER 250 MG TAB.ER.24H PO SCH ×2 (12:03→22:35)
--- NOTE | 2020-11-08 12:44 | P.PN ---
Subjective Progress Note Date: 11/08/20 I am seeing the patient for the first time. Please refer to Dr. Almeida's note for further neurological history and his assessment and plan. According to the patient her headaches are improving compared to presentation. She currently feels her headache is 5/10, over the frontal region. She does have photophobia, phonophobia. Denies nausea or vomiting. She denies focal weakness, numbness, visual disturbance, difficulty getting her words out. She stated she has history of Migraine and tried Topamax 50mg 1 tab bid and has not helped. She follows-up with Dr. Whelan's team (Neurology). Objective - Vital Signs Vital signs: Vital Signs Temp 97.7 F 11/08/20 08:00 Pulse 80 11/08/20 08:00 Resp 18 11/08/20 08:00 BP 122/86 11/08/20 08:00 Pulse Ox 99 11/08/20 08:00 Intake & Output 11/07/20 11/08/20 11/08/20 18:59 06:59 18:59 Intake Total 118 240 Output Total 1100 300 Balance -982 -300 240 Weight 105.6 kg 105.6 kg Intake: Oral 118 240 Output: Urine 1100 300 Other: Voiding Method Toilet Toilet # Voids 2 2 - Exam GENERAL: The patient is lying in bed and is in mild to moderate acute distress. NEUROLOGICAL: Higher mental function: The patient is awake, alert, oriented to self, place and time. Patient is following commands. No aphasia and no neglect. Cranial nerves: The pupils are round, equal and reactive to light and accommodation. Visual arroyo are full to confrontation throughout. Extraocular movement is intact no nystagmus is noted. Facial sensation is normal to touch throughout. The facial strength is normal throughout. Hearing is normal bilaterally to hand rub. Tongue is midline and moved [id number] without any difficulty. No dysarthria is noted. Motor: Gait is deferred. The strength is 5 over 5 throughout. Normal tone and bulk. Cerebellum: Normal finger to nose bilaterally. Sensation: Sensation is normal to touch throughout. - Labs CBC & Chem 7: 11/08/20 06:42 11/08/20 06:42 Labs: Abnormal Lab Results - Last 24 Hours (Table) 11/07/20 11/07/20 11/07/20 Range/Units 03:31 12:20 13:16 Sodium (137-145) mmol/L Chloride (98-107) mmol/L Carbon Dioxide (22-30) mmol/L Glucose (74-99) mg/dL POC Glucose (mg/dL) 164 H (75-99) mg/dL Hemoglobin A1c 7.4 H (4.0-6.0) % Urine Glucose (UA) 2+ H (Negative) Ur Leukocyte Esterase Moderate H (Negative) Urine Mucus Rare H (None) /hpf 11/07/20 11/07/20 11/08/20 Range/Units 17:07 19:44 06:01 Sodium (137-145) mmol/L Chloride (98-107) mmol/L Carbon Dioxide (22-30) mmol/L Glucose (74-99) mg/dL POC Glucose (mg/dL) 165 H 207 H 264 H (75-99) mg/dL Hemoglobin A1c (4.0-6.0) % Urine Glucose (UA) (Negative) Ur Leukocyte Esterase (Negative) Urine Mucus (None) /hpf 11/08/20 Range/Units 06:42 Sodium 135 L (137-145) mmol/L Chloride 108 H (98-107) mmol/L Carbon Dioxide 18 L (22-30) mmol/L Glucose 271 H (74-99) mg/dL POC Glucose (mg/dL) (75-99) mg/dL Hemoglobin A1c (4.0-6.0) % Urine Glucose (UA) (Negative) Ur Leukocyte Esterase (Negative) Urine Mucus (None) /hpf Microbiology - Last 24 Hours (Table) 11/07/20 13:16 Urine Culture - Preliminary Urine,Clean Catch Assessment and Plan Assessment: Status Migranoues( started 11/04/2020)---improving History of Migraine headache Plan: * The patient is currently on Depakote IV 250mg every 6 hours and the I stopped that and will place the patient on Depakote 250 mg twice a day at. * I started the patient on Elavil of 25 mg daily at bedtime which helps with her migraines as well as a her history of depression. And if there is no improvement recommend going up on Elavil to 50 mg daily at bedtime and that down the line can consider stopping Depakote since the side effect is awake again. * Possibly patient can consider higher dose of Topamax down the line she was on 50 [place] 1 tablet twice a day but in my opinion she can go as high as 100 mg 1 tablet twice a day and we'll defer that decision to her neurologist as an outpatient that. The also because of the her migraines can consider Botox injection or Aimovig but again will defer that decision to her neurologist as outpatient. * Patient to follow-up with her neurologist (Dr. Whelan) as outpatient within 1-2 weeks. If headaches continue to improve than she is clear from neurological stand point. Demario Casanova MD Neuro-Hospitalist Time with Patient: Less than 30
[2020-11-08 12:46] LABS: Glucose,Whole Blood 212 mg/dL (75-99)
[2020-11-08] MEDS: metFORMIN 500 MG TAB PO SCH (16:36)
[2020-11-08 16:50] LABS: Glucose,Whole Blood 131 mg/dL (75-99)
[2020-11-08] MEDS ORDERED: clonazePAM 0.5 MG TAB PO PRN (19:31)
[2020-11-08] MEDS: hydrOXYzine pamoate 25 MG CAP PO PRN (20:01)
--- NOTE | 2020-11-08 20:39 | P.PN ---
Subjective This is a pleasant 30 years old female with past medical history of asthma, diabetes mellitus, migraine headache, GERD, degenerative disc disease, e ndometriosis, lupus, pancreatitis anxiety and depression and PTSD She was admitted to the mental health unit on 06/2020 for major depressive disorders with no psychotic features, PTSD and borderline personality disorder. Patient had multiple visits to the emergency room, each month and average of 3-6 visits for the last 2-3 years Patient went to see her neurologist Dr. Whelan whom she follows up for her migraine headache which she has since age 17 and low back pain for the last 8 years secondary to degenerative disc disease. She goes to Dr. Whelan office to get IV infusion whenever she has migraine headache severe enough, this is the fourth time when she went yesterday and she got IV steroids, Toradol, Reglan and Benadryl in an hour after the infusion she had an episode of presyncope di zziness associated with funny feeling of the chest secondary to palpitation with no chest pain. She never had such reaction before Patient had this migraine headache for 1 week and a half which is unusual for her usually it lasts 3-5 days. And for the last 4 days she is been vomiting constantly like almost every hour as she describes with decreased eating and drinking She was admitted for cardiology team evaluation with echocardiogram requested from emergency room vitals showing tachycardia with heart rate 140, she has baseline tachycardia 110-130 4 more than a year Oxygen saturation 93-94% on room air and patient is afebrile Labs including CBC, BMP and INR are unremarkable Glucose is elevated at 257, liver enzymes are mildly elevated AST 43 and ALT 36, total bilirubin 0.3 TSH is normal at 0.7, free T4 is also normal at 1.0. Troponin are negative 3 with less than 0.012. Urine analysis is suspicious for infection Urine drug screen is positive for opiates and tricyclic antidepressant EKG showing sinus tachycardia at [address]-T changes and QTC is 443 Chest x-ray: Normal Patient emergency room she received normal saline bolus about 2 L and continued on 75 mL/h, she received Zofran, Toradol, Ativan, Benadryl, Reglan, morphine, Dilaudid and Xanax with metoprolol I offered for the patient to do a test, patient declined stating that she is to and she having had a relationship with a man for 6 years Currently patient denies depression, signs or symptoms OF hopelessness/hopelessness. She denies suicidal or end-tidal ideation 11/08/2020 Patient lying in bed not in distress. Her headache is down to 5/10. No abdominal pain. No nausea vomiting or diarrhea. No chest pain or dyspnea. No urinary tract symptoms like no dysuria or increased frequency. She is eating normally about 75%. Hemodynamically she stable and afebrile. Labs checked today there is no leukocytosis I discussed the case with neurologist who prescribed her Elavil and oral Depakote. Patient currently also on Urised when necessary I discussed the case with the neurologist who cleared her for discharge and follow-up with her neurologist Dr. Whelan Patient remains on ceftriaxone and urine cultures pending Objective - Vital Signs Vital signs: Vital Signs Temp 97.7 F 11/08/20 08:00 Pulse 80 11/08/20 08:00 Resp 18 11/08/20 08:00 BP 122/86 11/08/20 08:00 Pulse Ox 99 11/08/20 08:00 Intake & Output 11/07/20 11/08/20 11/08/20 18:59 06:59 18:59 Intake Total 118 240 Output Total 1100 300 Balance -982 -300 240 Weight 105.6 kg 105.6 kg Intake: Oral 118 240 Output: Urine 1100 300 Other: Voiding Method Toilet Toilet # Voids 2 2 - Exam -GENERAL: The patient is alert and oriented x3, not in any acute distress. Obese HEENT: Pupils are round and equally reacting to light. EOMI. No scleral icterus. No conjunctival pallor. Normocephalic, atraumatic. No pharyngeal erythema. No thyromegaly. CARDIOVASCULAR: S1 and S2 present. No murmurs, rubs, or gallops. PULMONARY: Chest is clear to auscultation, no wheezing or crackles. ABDOMEN: Soft, nontender, nondistended, normoactive bowel sounds. No palpable organomegaly. MUSCULOSKELETAL: No joint swelling or deformity. EXTREMITIES: No cyanosis, clubbing, or pedal edema. NEUROLOGICAL: Gross neurological examination did not reveal any focal deficits. SKIN: No rashes. no petechiae. - Labs CBC & Chem 7: 11/08/20 06:42 11/08/20 06:42 Labs: Abnormal Lab Results - Last 24 Hours (Table) 11/07/20 11/07/20 11/07/20 Range/Units 03:31 17:07 19:44 Sodium (137-145) mmol/L Chloride (98-107) mmol/L Carbon Dioxide (22-30) mmol/L Glucose (74-99) mg/dL POC Glucose (mg/dL) 165 H 207 H (75-99) mg/dL Hemoglobin A1c 7.4 H (4.0-6.0) % 11/08/20 11/08/20 11/08/20 Range/Units 06:01 06:42 12:43 Sodium 135 L (137-145) mmol/L Chloride 108 H (98-107) mmol/L Carbon Dioxide 18 L (22-30) mmol/L Glucose 271 H (74-99) mg/dL POC Glucose (mg/dL) 264 H 212 H (75-99) mg/dL Hemoglobin A1c (4.0-6.0) % Microbiology - Last 24 Hours (Table) 11/07/20 13:16 Urine Culture - Preliminary Urine,Clean Catch Assessment and Plan Assessment: Acute urinary tract infection, improving More prolonged migraine headache, suspected due to her UTI Episode of palpitation and presyncope, most likely secondary to dehydration, episodes of vomiting, lack of eating . Improved Dehydration. Improved Diabetes mellitus , with hyperglycemia and hemoglobin A1c 7.4% chronic tachycardia, could be related to stress from her mental health illness, associated with infection Low phosphorus History of asthma History of migraine headache History of GERD History of degenerative disc disease History of endometriosis History of lupus History of pancreatitis History of anxiety, depression and PTSD Plan: This is a pleasant 30 years old female who presents with Microvit and UTI. Ceftriaxone for UTI and follow-up urine culture replace phosphorus per protocol Continue with IV fluid normal saline and an increased rate to 75 mL/h Follow-up recommendation by neurologist who cleared her for discharge and follow-up with Dr. Whelan extension worker on the case Labs and medication were reviewed.. Continue same treatment. Continue with symptomatic treatment. Resume home medication. Monitor lytes and vitals. DVT and GI prophylaxis. Further recommendations depends on the clinical course of the patient DVT prophylaxis: Subcutaneous heparin GI Prophylaxis: Pepcid PT/OT: Pending Prognosis is guarded
[2020-11-08 20:43] LABS: Glucose,Whole Blood 196 mg/dL (75-99)
[2020-11-08] MEDS: DOXEPIN 25 MG CAP PO SCH (22:35)
[2020-11-08] MEDS: AMITRIPTYLINE HCL 25 MG TAB PO SCH (22:35)
[2020-11-09] MEDS: tiZANidine 4 MG TAB PO PRN (05:40)
[2020-11-09 06:02] LABS: Glucose,Whole Blood 156 mg/dL (75-99)
[2020-11-09] MEDS: metFORMIN 500 MG TAB PO SCH ×2 (06:05→17:43)
[2020-11-09] MEDS: INSULIN ASPART (NovoLOG) 100 UNIT/ML VIAL SQ SCH ×4 (06:05→21:23)
[2020-11-09] MEDS: PANTOPRAZOLE 40 MG TABLET PO SCH (06:05)
[2020-11-09] MEDS: DIVALPROEX ER 250 MG TAB.ER.24H PO SCH ×2 (09:10→21:23)
[2020-11-09] MEDS: HEPARIN SODIUM,PORCINE/PF 5,000 UNIT/0.5 ML SYRINGE SQ SCH ×2 (09:11→21:24)
[2020-11-09] MEDS: METOPROLOL TARTRATE 25 MG TAB PO SCH (09:11)
[2020-11-09] MEDS ORDERED: tiZANidine 4 MG TAB PO PRN (09:31)
[2020-11-09] MEDS ORDERED: NON FORMULARY DRUG (Rimegepant Sulfate [Nurtec Odt] 75 MG Tab.Rapdis) PO PRN (09:31)
[2020-11-09] MEDS ORDERED: HYDROXYZINE PAMOATE 50 MG PO PRN (09:31)
[2020-11-09] MEDS ORDERED: SUMAtriptan succinate 50 MG TAB PO PRN (09:31)
[2020-11-09] MEDS ORDERED: diphenhydrAMINE 25 MG CAP PO PRN (09:31)
[2020-11-09] MEDS: hydrOXYzine pamoate 25 MG CAP PO PRN ×2 (09:33→20:52)
[2020-11-09] MEDS ORDERED: MELOXICAM 7.5 MG TAB PO PRN (10:35)
[2020-11-09] MEDS: SODIUM CHLORIDE 0.9% 1,000 ML IV SCH ×2 (11:35→23:02)
[2020-11-09 12:06] LABS: Glucose,Whole Blood 153 mg/dL (75-99)
[2020-11-09] MEDS ORDERED: KETOROLAC 15 MG/ML 1 ML VIAL IVP STA (14:35)
[2020-11-09 16:44] LABS: Glucose,Whole Blood 163 mg/dL (75-99)
[2020-11-09] MEDS: busPIRone HCl 5 MG TAB PO SCH ×2 (17:43→20:47)
[2020-11-09] MEDS: BUTA/APAP/CAF/COD 50-325-40-30 CAP PO PRN (18:11)
[2020-11-09 20:14] LABS: Glucose,Whole Blood 181 mg/dL (75-99)
[2020-11-09] MEDS ORDERED: metFORMIN 500 MG TAB PO STA ×2 (20:33→20:53)
--- NOTE | 2020-11-09 20:43 | P.PN ---
Subjective This is a pleasant 30 years old female with past medical history of asthma, diabetes mellitus, migraine headache, GERD, degenerative disc disease, e ndometriosis, lupus, pancreatitis anxiety and depression and PTSD She was admitted to the mental health unit on 06/2020 for major depressive disorders with no psychotic features, PTSD and borderline personality disorder. Patient had multiple visits to the emergency room, each month and average of 3-6 visits for the last 2-3 years Patient went to see her neurologist Dr. Whelan whom she follows up for her migraine headache which she has since age 17 and low back pain for the last 8 years secondary to degenerative disc disease. She goes to Dr. Whelan office to get IV infusion whenever she has migraine headache severe enough, this is the fourth time when she went yesterday and she got IV steroids, Toradol, Reglan and Benadryl in an hour after the infusion she had an episode of presyncope di zziness associated with funny feeling of the chest secondary to palpitation with no chest pain. She never had such reaction before Patient had this migraine headache for 1 week and a half which is unusual for her usually it lasts 3-5 days. And for the last 4 days she is been vomiting constantly like almost every hour as she describes with decreased eating and drinking She was admitted for cardiology team evaluation with echocardiogram requested from emergency room vitals showing tachycardia with heart rate 140, she has baseline tachycardia 110-130 4 more than a year Oxygen saturation 93-94% on room air and patient is afebrile Labs including CBC, BMP and INR are unremarkable Glucose is elevated at 257, liver enzymes are mildly elevated AST 43 and ALT 36, total bilirubin 0.3 TSH is normal at 0.7, free T4 is also normal at 1.0. Troponin are negative 3 with less than 0.012. Urine analysis is suspicious for infection Urine drug screen is positive for opiates and tricyclic antidepressant EKG showing sinus tachycardia at [address]-T changes and QTC is 443 Chest x-ray: Normal Patient emergency room she received normal saline bolus about 2 L and continued on 75 mL/h, she received Zofran, Toradol, Ativan, Benadryl, Reglan, morphine, Dilaudid and Xanax with metoprolol I offered for the patient to do a test, patient declined stating that she is to and she having had a relationship with a man for 6 years Currently patient denies depression, signs or symptoms OF hopelessness/hopelessness. She denies suicidal or end-tidal ideation 11/08/2020 Patient lying in bed not in distress. Her headache is down to 5/10. No abdominal pain. No nausea vomiting or diarrhea. No chest pain or dyspnea. No urinary tract symptoms like no dysuria or increased frequency. She is eating normally about 75%. Hemodynamically she stable and afebrile. Labs checked today there is no leukocytosis I discussed the case with neurologist who prescribed her Elavil and oral Depakote. Patient currently also on Urised when necessary I discussed the case with the neurologist who cleared her for discharge and follow-up with her neurologist Dr. Whelan Patient remains on ceftriaxone and urine cultures pending 11/09/2020 Patient awake and alert today, her headache is better today down to 3/10 in severity, no weakness or numbness. Meningeal signs are absent. She denies any chest pain or dyspnea. No urinary tract symptoms, like no dysuria or change in frequency. Her pubic tenderness he denies any vaginal discharge or bleeding or itching. And she does not think she needs to see a shoe dresser. Today patient looks more depressed and withdrawn and asking about psych medication. She denies suicidal ideation. She found and halfway at [facility] [place] on she was going to be discharged today. Vitals are stable. No labs. Patient restarted her psych medication. Discontinue IV fluids She is currently on Depakote and EALAVIL . Psychiatric consult was placed. Unfortunately psychiatric came to the floor but did not see her. I called psychiatric floor but I could not hold off the psychiatric as well. Objective - Vital Signs Vital signs: Vital Signs Temp 98.8 F 11/09/20 12:48 Pulse 83 11/09/20 12:48 Resp 17 11/09/20 12:48 BP 110/73 11/09/20 12:48 Pulse Ox 97 11/09/20 12:48 Intake & Output 11/08/20 11/09/20 11/09/20 18:59 06:59 18:59 Intake Total 720 240 Balance 720 240 Weight 105.6 kg 104.1 kg Intake: Oral 720 240 Other: Voiding Method Toilet Toilet Toilet # Voids 2 - Exam -GENERAL: The patient is alert and oriented x3, not in any acute distress. Obese HEENT: Pupils are round and equally reacting to light. EOMI. No scleral icterus. No conjunctival pallor. Normocephalic, atraumatic. No pharyngeal erythema. No thyromegaly. CARDIOVASCULAR: S1 and S2 present. No murmurs, rubs, or gallops. PULMONARY: Chest is clear to auscultation, no wheezing or crackles. ABDOMEN: Soft, nontender, nondistended, normoactive bowel sounds. No palpable organomegaly. MUSCULOSKELETAL: No joint swelling or deformity. EXTREMITIES: No cyanosis, clubbing, or pedal edema. NEUROLOGICAL: Gross neurological examination did not reveal any focal deficits. SKIN: No rashes. no petechiae. - Labs CBC & Chem 7: 11/08/20 06:42 11/08/20 06:42 Labs: Abnormal Lab Results - Last 24 Hours (Table) 11/08/20 11/08/20 11/09/20 Range/Units 16:42 20:33 05:53 POC Glucose (mg/dL) 131 H 196 H 156 H (75-99) mg/dL 11/09/20 Range/Units 12:05 POC Glucose (mg/dL) 153 H (75-99) mg/dL Microbiology - Last 24 Hours (Table) 11/07/20 13:16 Urine Culture - Final Urine,Clean Catch Assessment and Plan Assessment: Acute urinary tract infection, improved. Urine culture is negative. Discontinue antibiotics Severe migraine headache, evaluated by neurologist and cleared for discharge Depression without suicidal ideation Episode of palpitation and presyncope, most likely secondary to dehydration, episodes of vomiting, lack of eating . Improved Dehydration. Improved Diabetes mellitus , with hyperglycemia and hemoglobin A1c 7.4% chronic tachycardia, could be related to stress from her mental health illness, associated with infection Low phosphorus History of asthma History of migraine headache History of GERD History of degenerative disc disease History of endometriosis History of lupus History of pancreatitis History of anxiety, depression and PTSD Plan: This is a pleasant 30 years old female who presents with Microvit and UTI. Discontinue Ceftriaxone as urine culture is negative Discontinue IV fluid. More depressed today. She'll need psychiatrist evaluation. Discussed with the patient and she agrees to stay in the hospital till seen by psychiatrist Follow-up recommendation by neurologist who cleared her for discharge and follow-up with Dr. Whelan. Patient informed and she agrees group worker on the case Labs and medication were reviewed.. Continue same treatment. Continue with symptomatic treatment. Resume home medication. Monitor lytes and vitals. DVT and GI prophylaxis. Further recommendations depends on the clinical course of the patient DVT prophylaxis: Subcutaneous heparin GI Prophylaxis: Pepcid PT/OT:Patient is mobile and does not need physical therapy
[2020-11-09] MEDS: PRAZOSIN 1 MG CAP PO SCH (20:46)
[2020-11-09] MEDS: ATORVASTATIN 40 MG TAB PO SCH (20:47)
[2020-11-09] MEDS: DOXEPIN 25 MG CAP PO SCH (20:47)
[2020-11-09] MEDS: MONTELUKAST 10 MG TAB PO SCH (20:47)
[2020-11-09] MEDS: ARIPiprazole 15 MG TAB PO SCH (20:48)
[2020-11-09] MEDS ORDERED: OLANZapine 5 MG TAB PO SCH (21:00)
[2020-11-09] MEDS: AMITRIPTYLINE HCL 25 MG TAB PO SCH (21:23)
[2020-11-09] MEDS ORDERED: diphenhydrAMINE 25 MG CAP PO STA (22:06)
[2020-11-09] MEDS ORDERED: MELATONIN 3 MG TABLET PO PRN (22:06)
[2020-11-10] MEDS: BUTA/APAP/CAF/COD 50-325-40-30 CAP PO PRN ×2 (03:19→15:07)
[2020-11-10 06:53] LABS: Glucose,Whole Blood 300 mg/dL (75-99)
[2020-11-10] MEDS: busPIRone HCl 5 MG TAB PO SCH ×3 (07:14→19:51)
[2020-11-10] MEDS: DIVALPROEX ER 250 MG TAB.ER.24H PO SCH ×2 (07:14→19:53)
[2020-11-10] MEDS: metFORMIN 850 MG TAB PO SCH ×2 (07:15→17:27)
[2020-11-10] MEDS: PANTOPRAZOLE 40 MG TABLET PO SCH (07:15)
[2020-11-10] MEDS: hydrOXYzine pamoate 25 MG CAP PO PRN ×3 (07:15→21:19)
[2020-11-10] MEDS: INSULIN ASPART (NovoLOG) 100 UNIT/ML VIAL SQ SCH ×4 (07:15→21:19)
[2020-11-10] MEDS: tiZANidine 4 MG TAB PO PRN ×2 (08:19→21:49)
[2020-11-10] MEDS: HEPARIN SODIUM,PORCINE/PF 5,000 UNIT/0.5 ML SYRINGE SQ SCH ×2 (08:20→19:53)
[2020-11-10] MEDS ORDERED: KETOROLAC 15 MG/ML 1 ML VIAL IVP STA (11:33)
[2020-11-10] MEDS ORDERED: diphenhydrAMINE 50 MG/ML 1 ML VIAL IVP STA (11:33)
[2020-11-10] MEDS ORDERED: METOCLOPRAMIDE 5 MG/ML 2 ML VIAL IVP STA (11:33)
[2020-11-10 11:49] LABS: Glucose,Whole Blood 244 mg/dL (75-99)
[2020-11-10] MEDS: SODIUM CHLORIDE 0.9% 1,000 ML IV SCH ×2 (12:10→20:51)
[2020-11-10] MEDS ORDERED: hydrOXYzine pamoate 25 MG CAP PO SCH (13:00)
--- NOTE | 2020-11-10 14:35 | CT ---
EXAMINATION TYPE: CT brain wo con DATE OF EXAM: 11/10/2020 COMPARISON: CT 08/16/2020 HISTORY: fall with blow to back of head CT DLP: 1040.4 mGycm. Automated Exposure Control for Dose Reduction was Utilized. TECHNIQUE: CT scan of the head is performed without contrast. FINDINGS: There is no acute intracranial hemorrhage, mass effect, or midline shift identified. The ventricles and sulci are within normal limits in size. The globes are intact and the visualized sin uses are clear. IMPRESSION: No acute intracranial hemorrhage, mass effect, or midline shift is seen.
[2020-11-10 14:40] LABS: Glucose,Whole Blood 133 mg/dL (75-99)
--- NOTE | 2020-11-10 15:41 | CT ---
EXAMINATION TYPE: CT cervical spine wo con DATE OF EXAM: 11/10/2020 COMPARISON: CT cervical spine 10/02/2020 HISTORY: neck pain TECHNIQUE: Multiple contiguous axial CT slices were obtained of the cervical spine. 2-D coronal and s agittal reformatted images were obtained. Dose reduction techniques were utilized. CT DLP: 473.9 mGycm Automated exposure control for dose reduction was used. TECHNIQUE: CT scan of the cervical spine is obtained without contrast, axial images are obtained, sa gittal and coronal reformatted images are also reviewed. FINDINGS: Cervical vertebral bodies from C2 to C7 are visualized. Cervical vertebral body heights are maintaine d. Straightening of the cervical lordosis which may relate to patient positioning or muscle spasm. No acute fracture or traumatic subluxation. No significant degenerative changes. No spinal canal stenos is or neural foraminal narrowing. No prevertebral soft tissue swelling. Odontoid process appears inta ct. IMPRESSION: No acute fracture or traumatic subluxation of the cervical spine.
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
[2020-11-10] MEDS ORDERED: LORazepam 2 MG/ML INJ IV STA (17:37)
[2020-11-10] MEDS ORDERED: SODIUM CHLORIDE 0.9% 1,000 ML IV ONE (19:22)
[2020-11-10] MEDS: ATORVASTATIN 40 MG TAB PO SCH (19:52)
[2020-11-10] MEDS: PRAZOSIN 1 MG CAP PO SCH (19:52)
[2020-11-10] MEDS: ARIPiprazole 15 MG TAB PO SCH (19:52)
[2020-11-10] MEDS: DOXEPIN 25 MG CAP PO SCH (19:52)
[2020-11-10] MEDS: MONTELUKAST 10 MG TAB PO SCH (19:52)
[2020-11-10 19:55] LABS: ALT 28 U/L (4-34); AST 55 U/L (14-36); African American GFR (CKD) >90 (>60 ml/min/1.73 sqM); Albumin 4.1 g/dL (3.5-5.0); Albumin/Globulin Ratio 1.4; Alkaline Phosphatase 78 U/L (38-126); Anion Gap 11 mmol/L; Bilirubin,Unconjugated 0.1 mg/dL (0.0-1.1); Blood Urea Nitrogen 15 mg/dL (7-17); Calcium 10.9 mg/dL (8.4-10.2); Carbon Dioxide 22 mmol/L (22-30); Chloride 103 mmol/L (98-107); Glucose 174 mg/dL (74-99); Magnesium 1.9 mg/dL (1.6-2.3); Non-African American GFR(CKD) >90 (>60 ml/min/1.73 sqM); Sodium 136 mmol/L (137-145); Total Bilirubin 0.3 mg/dL (0.2-1.3); Total Protein 7.1 g/dL (6.3-8.2)
[2020-11-10 19:57] LABS: Basophils # (A) 0.1 k/uL (0-0.2); Basophils % (A) 1 %; Eosinophils # (A) 0.1 k/uL (0-0.7); Eosinophils % (A) 1 %; HCT 40.3 % (34.0-46.0); Lymphocytes # (A) 2.9 k/uL (1.0-4.8); Lymphocytes % (A) 38 %; MCH 31.7 pg (25.0-35.0); MCHC 34.8 g/dL (31.0-37.0); MCV 91.2 fL (80.0-100.0); Mean Platelet Volume 7.2; Monocytes # (A) 0.2 k/uL (0-1.0); Monocytes % (A) 3 %; Neutrophils # (A) 4.3 k/uL (1.3-7.7); Neutrophils % (A) 56 %; Platelet Count 282 k/uL (150-450); RBC 4.42 m/uL (3.80-5.40); RDW 13.8 % (11.5-15.5); WBC 7.8 k/uL (3.8-10.6)
[2020-11-10 20:30] LABS: Glucose,Whole Blood 162 mg/dL (75-99)
[2020-11-10] MEDS ORDERED: QUEtiapine 100 MG TAB PO SCH (21:00)
[2020-11-10] MEDS ORDERED: clonazePAM 0.5 MG TAB PO SCH (21:00)
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
[2020-11-10] MEDS ORDERED: LORazepam 1 MG TAB PO PRN (22:24)
[2020-11-10] MEDS ORDERED: SODIUM CHLORIDE 0.9% 500 ML 500 ML IV ONE (22:25)
--- NOTE | 2020-11-10 22:57 | XR ---
EXAMINATION TYPE: XR chest 1V portable DATE OF EXAM: 11/10/2020 COMPARISON: 11/06/2020 HISTORY: Tachycardia. TECHNIQUE: FINDINGS: Heart and mediastinum are normal. Lungs are clear. Diaphragm is normal. There are chest corey ds. Bony thorax is intact IMPRESSION: No active cardiopulmonary disease. Normal heart. No change.
[2020-11-10] MEDS: METOPROLOL TARTRATE 25 MG TAB PO SCH (23:03)
--- NOTE | 2020-11-11 00:13 | P.PN ---
Subjective Progress Note Date: 11/09/20 Patient was seen via Tele-neurology today on 11/09/2020. Patient apparently is having relationship problem with her significant other. [facility] is going to [facility] to [facility]. Per nursing report, she was not having any headaches. She was given Mobic for low back pain. When I saw the patient, she was complaining of headache 09/19. She believes it is stress headache. Patient has been started on Elavil 25 mg at bedtime and Depakote 250 mg twice a day by Dr. Demario Casanova. Patient believes it is helping her slightly. Denies any side effects. Patient has a very flat affect. Objective - Vital Signs Vital signs: Vital Signs Temp 98.5 F 11/10/20 19:13 Pulse 122 H 11/10/20 22:53 Resp 15 11/10/20 19:13 BP 102/76 11/10/20 22:53 Pulse Ox 96 11/10/20 22:53 Intake & Output 11/10/20 11/10/20 11/11/20 06:59 18:59 06:59 Intake Total 100 Balance 100 Intake: Oral 100 Other: Voiding Method Toilet # Voids 1 - Exam Patient has a flat affect. Mental status, speech and language functions are normal. Cranial nerves normal. Muscle strength normal. - Labs CBC & Chem 7: 11/10/20 19:30 11/10/20 19:30 Labs: Abnormal Lab Results - Last 24 Hours (Table) 11/10/20 11/10/20 11/10/20 Range/Units 06:53 11:47 14:37 Sodium (137-145) mmol/L Glucose (74-99) mg/dL POC Glucose (mg/dL) 300 H 244 H 133 H (75-99) mg/dL Calcium (8.4-10.2) mg/dL AST (14-36) U/L 11/10/20 11/10/20 Range/Units 19:30 20:28 Sodium 136 L (137-145) mmol/L Glucose 174 H (74-99) mg/dL POC Glucose (mg/dL) 162 H (75-99) mg/dL Calcium 10.9 H (8.4-10.2) mg/dL AST 55 H (14-36) U/L Assessment and Plan Assessment: * Migraine headache, came with a persistent migraine, that started 11/04/2020. * Depression * Polypharmacy Plan: * Continue Elavil 25 mg bedtime. * Continue Depakote 250 mg twice a day. Both of these medications can produce weight gain. Patient was informed of possible side effects. Instructed to watch her weight. * I would avoid steroids because of palpitations. Patient does not take excessive caffeine. * Continue Fioricet as needed. * Continue metoprolol 25 mg twice a day. It will help with migraine prophylaxis as well. * If the headache persists, may consider lumbar puncture to rule out pseudotumor. * We will follow.
--- NOTE | 2020-11-11 01:38 | P.PN ---
Subjective Progress Note Date: 11/10/20 Patient was seen via Tele-neurology today on 11/10/2020. Patient continues to have headache. Patient was given a combination of Benadryl 50 mg, Toradol 30 mg and Reglan 10 mg IV form. Also was given Vistaril 100 mg by mouth. Patient states that all this combination helped her headaches significantly. Patient apparently states that she slipped in the bathroom, and hit her head on the wall. She did not hit her head on the floor. She did not pass out. However since this head injury, her headaches have gotten worse. Patient believes the floor was wet. She is having a throbbing headache. Patient says that she has headaches now for 2 weeks. Patient apparently is having relationship problem with her significant other. [facility] Per nursing report, she was not having any headaches. She was given Mobic for low back pain. Patient has been started on Elavil 25 mg at bedtime and Depakote 250 mg twice a day by Dr. Demario Casanova. Patient believes it is helping her slightly. Denies any side effects. Patient has a very flat affect. Objective - Vital Signs Vital signs: Vital Signs Temp 98.5 F 11/10/20 19:13 Pulse 122 H 11/10/20 22:53 Resp 15 11/10/20 19:13 BP 102/76 11/10/20 22:53 Pulse Ox 96 11/10/20 22:53 Intake & Output 11/10/20 11/10/20 11/11/20 06:59 18:59 06:59 Intake Total 100 Balance 100 Intake: Oral 100 Other: Voiding Method Toilet # Voids 1 2 - Exam Patient has a flat affect. Patient is laying comfortably in the bed. Mental status, speech and language functions are normal. Cranial nerves normal. Muscle strength normal. - Labs CBC & Chem 7: 11/10/20 19:30 11/10/20 19:30 Labs: Abnormal Lab Results - Last 24 Hours (Table) 11/10/20 11/10/20 11/10/20 Range/Units 06:53 11:47 14:37 Sodium (137-145) mmol/L Glucose (74-99) mg/dL POC Glucose (mg/dL) 300 H 244 H 133 H (75-99) mg/dL Calcium (8.4-10.2) mg/dL AST (14-36) U/L 11/10/20 11/10/20 Range/Units 19:30 20:28 Sodium 136 L (137-145) mmol/L Glucose 174 H (74-99) mg/dL POC Glucose (mg/dL) 162 H (75-99) mg/dL Calcium 10.9 H (8.4-10.2) mg/dL AST 55 H (14-36) U/L Assessment and Plan Assessment: * Migraine headache, came with a persistent migraine, that started 11/04/2020. * Status post fall due to slipping in the bathroom floor, hitting head on the wall. No loss of consciousness. * Depression * Polypharmacy Plan: * Computed tomography scan of head showed no acute intracranial hemorrhage, mass effect or midline shift. * Computed tomography scan of the cervical spine showed no fracture, traumatic subluxation. * Patient has been seen by psychiatrist, diagnosed with major depressive disorder, recurrent, severe without psychotic features. Also has posttraumatic stress disorder, borderline personality disorder. Zyprexa and Elavil has been discontinued. Patient started on Seroquel 100 mg nightly. Continue Abilify, doxepin, prazosin, melatonin and Klonopin. * Continue Depakote 250 mg twice a day. Patient was informed of possible side effects including risk of weight gain. Instructed to watch her weight. * I would avoid steroids because of palpitations. Patient does not take excessive caffeine. * Continue Fioricet as needed. * Continue metoprolol 25 mg twice a day. It will help with migraine prophylaxis as well. * If the headache persists, may consider lumbar puncture to rule out pseudotumor. * Dr. Demario Casanova Will resume neurology service in a.m.
[2020-11-11] MEDS: BUTA/APAP/CAF/COD 50-325-40-30 CAP PO PRN ×3 (01:52→21:06)
[2020-11-11] MEDS ORDERED: diphenhydrAMINE 50 MG/ML 1 ML VIAL IVP STA ×2 (04:15→11:08)
[2020-11-11] MEDS ORDERED: KETOROLAC 15 MG/ML 1 ML VIAL IVP STA ×2 (04:15→11:42)
[2020-11-11 07:38] LABS: Glucose,Whole Blood 127 mg/dL (75-99)
[2020-11-11] MEDS: INSULIN ASPART (NovoLOG) 100 UNIT/ML VIAL SQ SCH ×4 (07:39→21:07)
[2020-11-11] MEDS: metFORMIN 850 MG TAB PO SCH ×2 (07:49→18:28)
[2020-11-11] MEDS: HEPARIN SODIUM,PORCINE/PF 5,000 UNIT/0.5 ML SYRINGE SQ SCH ×2 (07:49→21:08)
[2020-11-11] MEDS: DIVALPROEX ER 250 MG TAB.ER.24H PO SCH (07:50)
[2020-11-11] MEDS: METOPROLOL TARTRATE 25 MG TAB PO SCH ×2 (07:50→21:07)
[2020-11-11] MEDS: hydrOXYzine pamoate 25 MG CAP PO PRN (07:50)
[2020-11-11] MEDS: busPIRone HCl 5 MG TAB PO SCH (07:50)
[2020-11-11] MEDS: PANTOPRAZOLE 40 MG TABLET PO SCH (07:50)
[2020-11-11] MEDS: tiZANidine 4 MG TAB PO PRN (08:42)
[2020-11-11] MEDS ORDERED: METOCLOPRAMIDE 5 MG/ML 2 ML VIAL IVP STA (11:08)
[2020-11-11 11:54] LABS: Glucose,Whole Blood 170 mg/dL (75-99)
[2020-11-11] MEDS ORDERED: SUMAtriptan succinate 25 MG TAB PO PRN (12:59)
[2020-11-11] MEDS ORDERED: NAPROXEN 250 MG TAB PO PRN (13:06)
--- NOTE | 2020-11-11 13:09 | P.PN ---
Subjective Progress Note Date: 11/11/20 I am seeing the patient as follow-up since and was seen last by me on 11/08/20. Please refer to Dr. Chandler's note for further details. She states she continues to have constant headaches but feels some improvement. It is located over bilateral frontal region, feels throbbing. Has photophobia, phonophobia, nausea but denies vomiting. She said for last 3 days both eyes are slightly blurry. Denies focal weakness, numbness, whoosing sound sensation. Objective - Vital Signs Vital signs: Vital Signs Temp 97.8 F 11/11/20 08:00 Pulse 77 11/11/20 08:00 Resp 16 11/11/20 08:00 BP 110/69 11/11/20 08:00 Pulse Ox 96 11/11/20 08:00 Intake & Output 11/10/20 11/11/20 11/11/20 18:59 06:59 18:59 Other: Voiding Method Toilet Toilet # Voids 2 2 - Exam GENERAL: The patient is lying in bed and is in mild to moderate acute distress. NEUROLOGICAL: Higher mental function: The patient is awake, alert, oriented to self, place and time. Patient is following commands. No aphasia and no neglect. Cranial nerves: The pupils are round, equal and reactive to light and accommodation. Visual arroyo are full to confrontation throughout. Extraocular movement is intact no nystagmus is noted. Facial sensation is normal to touch throughout. The facial strength is normal throughout. Hearing is normal bilaterally to hand rub. Tongue is midline and moved [id number] without any difficulty. No dysarthria is noted. Motor: Gait is deferred. The strength is 5 over 5 throughout. Normal tone and bulk. Cerebellum: Normal finger to nose bilaterally. Sensation: Sensation is normal to touch throughout. WORK-UP: * Computed tomography scan of head showed no acute intracranial hemorrhage, mass effect or midline shift. * Computed tomography scan of the cervical spine showed no fracture, traumatic subluxation. - Labs CBC & Chem 7: 11/10/20 19:30 11/10/20 19:30 Labs: Abnormal Lab Results - Last 24 Hours (Table) 11/10/20 11/10/20 11/10/20 Range/Units 14:37 19:30 20:28 Sodium 136 L (137-145) mmol/L Glucose 174 H (74-99) mg/dL POC Glucose (mg/dL) 133 H 162 H (75-99) mg/dL Calcium 10.9 H (8.4-10.2) mg/dL AST 55 H (14-36) U/L 11/11/20 11/11/20 Range/Units 07:32 11:47 Sodium (137-145) mmol/L Glucose (74-99) mg/dL POC Glucose (mg/dL) 127 H 170 H (75-99) mg/dL Calcium (8.4-10.2) mg/dL AST (14-36) U/L Assessment and Plan Assessment: * Status Migranoues( started 11/04/2020) * Status post fall due to slipping in the bathroom floor, hitting head on the wall. No loss of consciousness. * History of Migraine headache * Depression * Polypharmacy Plan: * Consulted anesthesiology team for lumbar puncture to rule out Pseudotumor cerebri. Request opening and closing pressure. * On Depakote 250 mg twice a day. I stopped it since not helping and can cause weight gain. Continue metoprolol 25 mg twice a day (It will help with migraine prophylaxis as well). I changed Melantonin 3mg PRN to scheduled daily which helps with migraine (as seizure prophylaxis). * On Imitrex 100 1 tab bid PRN. I changed it to 25mg bid PRN and not to exceed twice a day as abortive. I ordered Naproxen 1 tab bid PRN for headaches. * On Fiorcet 1 tab q8hrs PRN. * Patient has been seen by psychiatrist, diagnosed with major depressive disorder, recurrent, severe without psychotic features. Also has posttraumatic stress disorder, borderline personality disorder. Zyprexa and Elavil has been discontinued. Patient started on Seroquel 100 mg nightly. Continue Abilify, doxepin, prazosin, and Klonopin. * On benadryl 50mg PRN. * I would avoid steroids because of palpitations. Patient does not take excessive caffeine. * Consider as outpatient for her migraines can consider Botox injection or Aimovig but again will defer that decision to her neurologist as outpatient. * Patient to follow-up with her neurologist (Dr. Whelan) as outpatient within 1-2 weeks. The plan is discussed with her nurse. Demario Casanova MD Neuro-Hospitalist Time with Patient: Less than 30
[2020-11-11] MEDS ORDERED: OLANZapine 10 MG VIAL IM PRN (13:31)
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
[2020-11-11] MEDS: SODIUM CHLORIDE 0.9% 1,000 ML IV SCH (14:08)
[2020-11-11] MEDS: busPIRone HCl 10 MG TAB PO SCH ×2 (15:38→21:07)
[2020-11-11] MEDS: OLANZapine 2.5 MG TAB PO PRN (15:42)
[2020-11-11 17:20] LABS: Glucose,Whole Blood 185 mg/dL (75-99)
[2020-11-11 17:30] LABS: Partial Thromboplastin Time 21.6 sec (22.0-30.0); Prothrombin Time 10.5 sec (9.0-12.0)
[2020-11-11 19:47] LABS: Glucose,Whole Blood 152 mg/dL (75-99)
[2020-11-11] MEDS ORDERED: QUEtiapine 200 MG TAB PO SCH (21:00)
[2020-11-11] MEDS: PRAZOSIN 1 MG CAP PO SCH (21:06)
[2020-11-11] MEDS: MONTELUKAST 10 MG TAB PO SCH (21:07)
[2020-11-11] MEDS: MELATONIN 3 MG TABLET PO SCH (21:07)
[2020-11-11] MEDS: ATORVASTATIN 40 MG TAB PO SCH (21:07)
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
[2020-11-12] MEDS: SODIUM CHLORIDE 0.9% 1,000 ML IV SCH ×5 (00:16→21:01)
[2020-11-12] MEDS: OLANZapine 2.5 MG TAB PO PRN (01:15)
[2020-11-12 06:58] LABS: Glucose,Whole Blood 121 mg/dL (75-99)
[2020-11-12] MEDS: INSULIN ASPART (NovoLOG) 100 UNIT/ML VIAL SQ SCH ×4 (07:04→20:46)
[2020-11-12] MEDS: PANTOPRAZOLE 40 MG TABLET PO SCH (07:37)
[2020-11-12] MEDS: metFORMIN 850 MG TAB PO SCH ×2 (07:37→18:08)
[2020-11-12] MEDS: HEPARIN SODIUM,PORCINE/PF 5,000 UNIT/0.5 ML SYRINGE SQ SCH ×2 (09:15→21:01)
[2020-11-12] MEDS ORDERED: LACTATED RINGERS 1,000 ML IV ONE (09:43)
[2020-11-12 09:53] LABS: Glucose,Whole Blood 152 mg/dL (75-99)
[2020-11-12] MEDS ORDERED: fentaNYL (PF) 50 MCG/ML 2 ML AMP ONE (09:54)
[2020-11-12] MEDS ORDERED: MIDAZOLAM 2 MG/2 ML VIAL ONE (09:54)
--- NOTE | 2020-11-12 10:22 | P.PCN ---
Date of Procedure: 11/12/20 Preoperative Diagnosis: Headache, rule out pseudotumor cerebri Postoperative Diagnosis: Same as above Procedure(s) Performed: Lumbar puncture in the left lateral decubitus position Anesthesia: other (Moderate conscious sedation with IV fentanyl 100 g and 2 mg of Versed) Surgeon: Will England Pathology: none sent Condition: stable Disposition: PACU Description of Procedure: The patient was seen in the preop holding area, consent was obtained. The patient then was brought into the procedure room and placed in the left lateral decubitus position. Skin was prepped with ChloraPrep and draped in a sterile manner. Lidocaine 1% was used to numb the skin up at the L4 5 level in the midline approach. I used a 22-gauge 3-1/2 inch Quincke spinal needle for this procedure. Only one attempt was needed to get into the intrathecal space. The opening pressure was 28 cm of water. A total of 7 MLS of clear CSF fluid was obtained and divided in 4 tubes. The closing pressure was 17 cm of water. No paresthesia occurred during the procedure. Patient tolerated procedure well. The patient then was placed in the supine position and transferred back to her room.
[2020-11-12] MEDS: busPIRone HCl 10 MG TAB PO SCH ×3 (10:39→20:54)
[2020-11-12] MEDS: METOPROLOL TARTRATE 25 MG TAB PO SCH ×2 (10:39→20:47)
[2020-11-12] MEDS: tiZANidine 4 MG TAB PO PRN (10:40)
[2020-11-12] MEDS: BUTA/APAP/CAF/COD 50-325-40-30 CAP PO PRN (11:03)
[2020-11-12 11:18] LABS: Glucose,Whole Blood 150 mg/dL (75-99)
[2020-11-12 11:25] LABS: Glucose,CSF 77 mg/dL (40-70); Total Protein,CSF 52 mg/dL (12-60)
--- NOTE | 2020-11-12 12:00 | P.PN ---
Subjective This is a pleasant 30 years old female with past medical history of asthma, diabetes mellitus, migraine headache, GERD, degenerative disc disease, e ndometriosis, lupus, pancreatitis anxiety and depression and PTSD She was admitted to the mental health unit on 06/2020 for major depressive disorders with no psychotic features, PTSD and borderline personality disorder. Patient had multiple visits to the emergency room, each month and average of 3-6 visits for the last 2-3 years Patient went to see her neurologist Dr. Whelan whom she follows up for her migraine headache which she has since age 17 and low back pain for the last 8 years secondary to degenerative disc disease. She goes to Dr. Whelan office to get IV infusion whenever she has migraine headache severe enough, this is the fourth time when she went yesterday and she got IV steroids, Toradol, Reglan and Benadryl in an hour after the infusion she had an episode of presyncope di zziness associated with funny feeling of the chest secondary to palpitation with no chest pain. She never had such reaction before Patient had this migraine headache for 1 week and a half which is unusual for her usually it lasts 3-5 days. And for the last 4 days she is been vomiting constantly like almost every hour as she describes with decreased eating and drinking She was admitted for cardiology team evaluation with echocardiogram requested from emergency room vitals showing tachycardia with heart rate 140, she has baseline tachycardia 110-130 4 more than a year Oxygen saturation 93-94% on room air and patient is afebrile Labs including CBC, BMP and INR are unremarkable Glucose is elevated at 257, liver enzymes are mildly elevated AST 43 and ALT 36, total bilirubin 0.3 TSH is normal at 0.7, free T4 is also normal at 1.0. Troponin are negative 3 with less than 0.012. Urine analysis is suspicious for infection Urine drug screen is positive for opiates and tricyclic antidepressant EKG showing sinus tachycardia at [address]-T changes and QTC is 443 Chest x-ray: Normal Patient emergency room she received normal saline bolus about 2 L and continued on 75 mL/h, she received Zofran, Toradol, Ativan, Benadryl, Reglan, morphine, Dilaudid and Xanax with metoprolol I offered for the patient to do a test, patient declined stating that she is to and she having had a relationship with a man for 6 years Currently patient denies depression, signs or symptoms OF hopelessness/hopelessness. She denies suicidal or end-tidal ideation 11/08/2020 Patient lying in bed not in distress. Her headache is down to 5/10. No abdominal pain. No nausea vomiting or diarrhea. No chest pain or dyspnea. No urinary tract symptoms like no dysuria or increased frequency. She is eating normally about 75%. Hemodynamically she stable and afebrile. Labs checked today there is no leukocytosis I discussed the case with neurologist who prescribed her Elavil and oral Depakote. Patient currently also on Urised when necessary I discussed the case with the neurologist who cleared her for discharge and follow-up with her neurologist Dr. Whelan Patient remains on ceftriaxone and urine cultures pending 11/09/2020 Patient awake and alert today, her headache is better today down to 3/10 in severity, no weakness or numbness. Meningeal signs are absent. She denies any chest pain or dyspnea. No urinary tract symptoms, like no dysuria or change in frequency. Her pubic tenderness he denies any vaginal discharge or bleeding or itching. And she does not think she needs to see a manager helpdesk. Today patient looks more depressed and withdrawn and asking about psych medication. She denies suicidal ideation. She found and halfway at [facility] in [place] on she was going to be discharged today. Vitals are stable. No labs. Patient restarted her psych medication. Discontinue IV fluids She is currently on Depakote and EALAVIL . Psychiatric consult was placed. Unfortunately psychiatric came to the floor but did not see her. I called psychiatric floor but I could not hold off the psychiatric as well. 11/10/2020 Today patient had stressful time, since morning she was upset because her stepdaughter called her and told her that " she wished somebody may kick her ..." Although she said she had good relationship with her earlier, I tried to give her emotional support. Her headache was worse today 70/10 and she requested Toradol with Benadryl and Reglan stating that usually work for her. In the afternoon patient slipped in the bathroom and hit her head, staff for aware that her back to bed, then placed and fall precautions. He will to prevent of the cervical spine were negative Patient was also dehydrated, hypotensive and tachycardic probably because she is not eating and drinking well. Patient was given 1 L of normal saline and restarted at the infusion at 125 ml/h Repeat labs showing dehydration as well Psychiatric also evaluated the patient today and recommended inpatient psychiatric admission, patient cannot leave AMA, so she will need to be petitioned, I discussed with staff and they are aware. Sitter At bedside. Patient start hurting herself and aggressive to staff and they have to restrain her. Ativan provided for the patient as well as cervical by psychiatrist to help calm her down. Patient is high-risk for self and staff and she will need to be keep monitored Medically stable patient made to aspirate to psychiatric unit 11-11-20 Patient is seen in her bed withdrawn, called on herself and crying continuously, she was complaining of from headache, fully awake and oriented, no other complaints. Sitter at bedside Hemodynamically stable and tachycardic at times, rest of vitals are stable INR is 1.0. Glucose controlled. Neurologist evaluated the patient today and adjusted her medication and recommended to the lumbar puncture to rule out pseudotumor cerebri given her persistent headache, otherwise its due to her psych illness and distress with intensity motions Psychiatric also evaluated her today and confirmed need to transfer to psychiatric unit once she is medically cleared, please refer to their notes for medication adjustment Possible discharge in 24-48 hours to psychiatric units once medically stable Discussed with staff 11/12/2020 Patient this morning was still complaining from pain and headache. Also she was complaining of from some right wrist pain and bruise because she had her hand to the wall or bed yesterday. Her right hand movement is affected by the pain. Sitter is at bedside, no need for restraints says yesterday. She is hemodynamically stable with no labs and no new images. Multiple medications. Her heparin and Urised dose were held this morning because she was going for lumbar puncture Lumbar puncture showed elevated opening pressure at 28 cm with closing pressure is 17 cm, 7 mL were taken out and sending for test in 4 tubes Neurology and psychiatry services on the case, Objective - Vital Signs Vital signs: Vital Signs Temp 96.7 F L 11/12/20 09:42 Pulse 95 11/12/20 09:42 Resp 14 11/12/20 09:42 BP 105/64 11/12/20 09:42 Pulse Ox 97 11/12/20 09:42 Intake & Output 11/11/20 11/12/20 11/12/20 18:59 06:59 18:59 Other: Voiding Method Toilet # Voids 4 2 - Exam -GENERAL: The patient is alert and oriented x3, not in any acute distress. Obese HEENT: Pupils are round and equally reacting to light. EOMI. No scleral icterus. No conjunctival pallor. Normocephalic, atraumatic. No pharyngeal erythema. No thyromegaly. CARDIOVASCULAR: S1 and S2 present. No murmurs, rubs, or gallops. PULMONARY: Chest is clear to auscultation, no wheezing or crackles. ABDOMEN: Soft, nontender, nondistended, normoactive bowel sounds. No palpable organomegaly. MUSCULOSKELETAL: No joint swelling or deformity. -EXTREMITIES: No cyanosis, clubbing, or pedal edema. Right wrist tenderness, with little bruise and swelling NEUROLOGICAL: Gross neurological examination did not reveal any focal deficits. SKIN: No rashes. no petechiae. - Labs CBC & Chem 7: 11/10/20 19:30 11/10/20 19:30 Labs: Abnormal Lab Results - Last 24 Hours (Table) 11/11/20 11/11/20 11/11/20 Range/Units 11:47 16:48 17:17 APTT 21.6 L (22.0-30.0) sec POC Glucose (mg/dL) 170 H 185 H (75-99) mg/dL CSF Glucose (40-70) mg/dL 11/11/20 11/12/20 11/12/20 Range/Units 19:46 06:57 09:52 APTT (22.0-30.0) sec POC Glucose (mg/dL) 152 H 121 H 152 H (75-99) mg/dL CSF Glucose (40-70) mg/dL 11/12/20 11/12/20 Range/Units 09:59 11:16 APTT (22.0-30.0) sec POC Glucose (mg/dL) 150 H (75-99) mg/dL CSF Glucose 77 H (40-70) mg/dL Assessment and Plan Assessment: Patient with severe depression, meet inpatient psychiatric criteria Fall in the bathroom on 11/10, to she slipped on the floor Acute urinary tract infection, improved. Urine culture is negative. Discontinue antibiotics Severe migraine headache, evaluated by neurologist and recommended lumbar puncture Depression without suicidal ideation Episode of palpitation and presyncope, most likely secondary to dehydration, episodes of vomiting, lack of eating . Improved Dehydration. Improved Diabetes mellitus , with hyperglycemia and hemoglobin A1c 7.4% chronic tachycardia, could be related to stress from her mental health illness, associated with infection Low phosphorus History of asthma History of migraine headache History of GERD History of degenerative disc disease History of endometriosis History of lupus History of pancreatitis History of anxiety, depression and PTSD Plan: This is a pleasant 30 years old female who presents with migraine headache and depression Follow-up within urology regarding her lumbar puncture results, further tests or imaging will be deferred to neurology service Stop IV fluids and continue oral hydration Right wrist and hand x-ray Psychiatrist recommended inpatient psychiatric admission after patient medically stabilized. sitter at bedside. Patient cannot leave AMA. Otherwise Patient will need to be petitioned. Discussed With the staff and they are aware, written instruction is also provided continue with metformin twice a day, dose 500 mg Follow-up recommendation by neurologist Patient will need follow-up with Dr. Whelan As an outpatient after discharge Patient informed and she agrees parish worker on the case Labs and medication were reviewed.. Continue same treatment. Continue with symptomatic treatment. Resume home medication. Monitor lytes and vitals. DVT and GI prophylaxis. Further recommendations depends on the clinical course of the patient DVT prophylaxis: Subcutaneous heparin GI Prophylaxis: Pepcid PT/OT:Patient is mobile and does not need physical therapy
[2020-11-12 12:18] LABS: Metanephrines 24 Hour,Urine 110 ug/day (52-341); Normetanephrine 24 Hour,Urine 327 ug/day (88-444); Total Metanephrines 24 Hour,Ur 437 ug/day (140-785); Urine Creatinine, 24 Hr 1.3 gm/24h (0.8-1.8)
[2020-11-12] MEDS: acetaZOLAMIDE 250 MG TAB PO SCH ×2 (12:52→21:01)
--- NOTE | 2020-11-12 13:40 | P.PN ---
Progress Note - Text Progress Note Date: 11/12/20 Interval History: Patient was seen today for psychiatric follow-up regarding patient's psychiatric condition. Patient's nurse claims that she was hitting herself yesterday because of the medication changes and not getting her Vistaril. She also claimed that patient was having some headaches and will be taking new medication for the headache and also getting more head imaging. Patient was seen at the bedside today by hand sign writer and she had a one-to-one sitter at her side. She claims that she is doing mildly better overall with the new medications. She claims that she was able to sleep approximately 5 hours last night however was requesting never Seroquel increased and have a dose during the day. She states that her depression and anxiety have been mildly improving over claims that she does have some anxiety during the day. She claims that she is hearing voices telling her to hurt herself however these voices have been improving and she is "learning to not listen to them". At this time patient denies any current suicidal or homical ideations, intent or plan. Patient denies any visual hallucinations and denies any paranoia or delusions. Patient denies any side effects from the medications and has been compliant with meds. Mental Status Exam: General Appearance: Patient appears to be overweight, stated age is alert, directable, and attempts to cooperate. Behavior: Patient is calmly seated without any agitated behavior. Appears to be less anxious Speech: Patient's speech is fluent and nonpressured. Mood/Affect: Mood is "a bit better", affect is congruent and constricted Suicidality/Homicidality: Patient denies having any suicidal or homicidal ideation intent or plan. Perceptions: Patient denies any visual hallucinations and patient admits to ongoing auditory hallucinations of voices telling her negative things and to hurt herself. Though content/process: There is no evidence of any delusional thought content and thought process is linear and goal-directed. Memory and concentration: AOX3, grossly intact for the purposes of this session Judgment and insight: Chronically poor Assessment Major depressive disorder, recurrent, severe Borderline personality disorder History of PTSD Plan: -At this time patient DOES meet criteria for inpatient psychiatric admission once she is medically cleared. -Would recommend the following medication changes/additions: continue with prazosin and melatonin doses. zyprexa PRN both IM and PO options for agitation/aggression. Increased seroquel to 250mg hs + 25mg daily. Do not give patient any more benzodiazepines. -continue with 1:1 sitter for safety until pt is transferred to psych -Cannot leave AMA at this time. Patient will need a petition and certification if attempting to leave AMA. -When medically stable, patient is eligible for transfer to a psych bed when available. -Communicated plan to patient's nurse -Will follow along as needed -Please contact with any questions.
[2020-11-12 14:31] LABS: African American GFR (CKD) >90 (>60 ml/min/1.73 sqM); Blood Urea Nitrogen 13 mg/dL (7-17); Non-African American GFR(CKD) >90 (>60 ml/min/1.73 sqM)
[2020-11-12] MEDS: QUEtiapine 25 MG TAB PO SCH (15:09)
[2020-11-12 16:15] LABS: CSF Tube Number 4
[2020-11-12 16:16] LABS: Appearance,CSF Clear
--- NOTE | 2020-11-12 16:19 | P.PN ---
Subjective Progress Note Date: 11/12/20 The patient seen at bedside and that she stated her headache is slightly better. Objective - Vital Signs Vital signs: Vital Signs Temp 98.1 F 11/12/20 14:00 Pulse 85 11/12/20 14:00 Resp 18 11/12/20 14:00 BP 101/68 11/12/20 14:00 Pulse Ox 95 11/12/20 14:00 Intake & Output 11/11/20 11/12/20 11/12/20 18:59 06:59 18:59 Other: Voiding Method Toilet # Voids 4 2 - Exam GENERAL: The patient is lying in bed and is in mild to moderate acute distress. NEUROLOGICAL: Higher mental function: The patient is awake, alert, oriented to self, place and time. Patient is following commands. No aphasia and no neglect. Cranial nerves: The pupils are round, equal and reactive to light and accommodation. Visual arroyo are full to confrontation throughout. Extraocular movement is intact no nystagmus is noted. Facial sensation is normal to touch throughout. The facial strength is normal throughout. Hearing is normal bilaterally to hand rub. Tongue is midline and moved [id number] without any difficulty. No dysarthria is noted. Motor: Gait is deferred. The strength is 5 over 5 throughout. Normal tone and bulk. Cerebellum: Normal finger to nose bilaterally. Sensation: Sensation is normal to touch throughout. WORK-UP: * Computed tomography scan of head showed no acute intracranial hemorrhage, mass effect or midline shift. * Computed tomography scan of the cervical spine showed no fracture, traumatic subluxation. - Labs CBC & Chem 7: 11/10/20 19:30 11/12/20 13:43 Labs: Abnormal Lab Results - Last 24 Hours (Table) 11/11/20 11/11/20 11/11/20 Range/Units 16:48 17:17 19:46 APTT 21.6 L (22.0-30.0) sec POC Glucose (mg/dL) 185 H 152 H (75-99) mg/dL CSF Glucose (40-70) mg/dL 11/12/20 11/12/20 11/12/20 Range/Units 06:57 09:52 09:59 APTT (22.0-30.0) sec POC Glucose (mg/dL) 121 H 152 H (75-99) mg/dL CSF Glucose 77 H (40-70) mg/dL 11/12/20 Range/Units 11:16 APTT (22.0-30.0) sec POC Glucose (mg/dL) 150 H (75-99) mg/dL CSF Glucose (40-70) mg/dL Microbiology - Last 24 Hours (Table) 11/12/20 09:59 CSF Culture - Preliminary Cerebral Spinal Fluid Assessment and Plan Assessment: * Cephalgia: Seems status Migranoues( started 11/04/2020) rule out any other secondary type of headaches. * History of Migraine headache * Depression * Polypharmacy Plan: * Consulted anesthesiology team for lumbar puncture to rule out Pseudotumor cerebri. Request opening and closing pressure. * Continue metoprolol 25 mg twice a day (It will help with migraine prophylaxis as well). Continue Melantonin 3mg scheduled daily which helps with migraine (as seizure prophylaxis). * On Imitrex 25mg bid PRN and not to exceed twice a day as abortive. On Naproxen 1 tab bid PRN for headaches. * On Fiorcet 1 tab q8hrs PRN. * Patient has been seen by psychiatrist, diagnosed with major depressive d isorder, recurrent, severe without psychotic features. Also has posttraumatic stress disorder, borderline personality disorder. Zyprexa and Elavil has been discontinued. Patient started on Seroquel 100 mg nightly. Continue Abilify, doxepin, prazosin, and Klonopin. * On benadryl 50mg PRN. * I would avoid steroids because of palpitations. Patient does not take excessive caffeine. * Consider as outpatient for her migraines can consider Botox injection or Aimovig but again will defer that decision to her neurologist as outpatient. * Patient to follow-up with her neurologist (Dr. Whelan) as outpatient within 1-2 weeks. UPDATE: Lumbar puncture: Opening pressure of was 28 cm of water which is slightly elevated the normal is less than 25. As result I started the patient on Acetazolamide 250mg bid. CSF study: glucose is 77 (slight elevated), protein 52 (normal). Pending rest of work-up. I ordered CTA head/neck and CTV as well MRI Brain. The plan is discussed with her nurse and the primary team. Demario Casanova MD Neuro-Hospitalist Time with Patient: Less than 30
[2020-11-12 16:22] LABS: Nucleated Cells, CSF 0 u/L (0-5); Red Blood Cell,CSF 0 u/L (0-10)
[2020-11-12 17:32] LABS: Glucose,Whole Blood 89 mg/dL (75-99)
--- NOTE | 2020-11-12 17:34 | XR ---
EXAMINATION TYPE: XR wrist complete RT DATE OF EXAM: 11/12/2020 COMPARISON: Right hand x-ray 10/25/2020 HISTORY: Pain TECHNIQUE: 4 views FINDINGS: 4 views show no fracture nor dislocation. Joint spaces are normal. There are no erosions. T here are no pathologic calcifications. Carpal bones are intact. IMPRESSION: Negative right wrist exam. No change.
--- NOTE | 2020-11-12 17:37 | XR ---
EXAMINATION TYPE: XR hand complete RT DATE OF EXAM: 11/12/2020 COMPARISON: 10/25/2020 HISTORY: Pain TECHNIQUE: 3 views FINDINGS: Metacarpals are intact. The fingers appear intact. I see no fracture nor dislocation. Joint spaces are normal. There are no erosions. IMPRESSION: Negative right hand exam. No change.
--- NOTE | 2020-11-12 17:52 | MR ---
EXAMINATION TYPE: MR brain wo/w con DATE OF EXAM: 11/12/2020 COMPARISON: 01/23/2019 HISTORY: Worsening of baseline headache. CONTRAST: Standard multiplanar, multisequence MRI departmental protocol utilizing 10 mL intravenous Gadavist ga dolinium contrast. Ventricles have normal size. There is no mass effect nor midline shift. There is no evidence of intra cranial hemorrhage. Diffusion images show no evidence of an acute infarct. The roberts-white matter stru ctures have fairly normal signal pattern. There is no evidence of cerebral edema. There is no evidenc e of orbital mass. Corpus callosum appears normal. Brainstem is intact. Sella turcica appears normal. Contrast images show no pathologic enhancement. There is normal enhancement of the venous sinuses. Pi tuitary stalk appears normal. Optic chiasm appears normal. IMPRESSION: Normal MR scan of the brain. No change.
--- NOTE | 2020-11-12 18:44 | CT ---
EXAMINATION TYPE: CT angio head neck DATE OF EXAM: 11/12/2020 COMPARISON: None HISTORY: Headaches CT DLP: mGycm Automated exposure control for dose reduction was used. CONTRAST: The contrast was Isovue 65 mL. There are 3-D post processed images. There is normal branching pattern of the great vessels on the aortic arch. There is arterial flow in the subclavian arteries. There is arterial flow in the common internal and external carotid arteries. There is arterial flow in the vertebral arteries bilaterally. There is wide patency of the carotid a rtery bifurcations. There is arterial flow in the vertebrobasilar artery system. There is no evidence of carotid or vertebral artery aneurysm or dissection. There is arterial flow in the anterior middle and posterior cerebral arteries. There is normal contra st opacification of the venous sinuses. There is no mass effect. There is no evidence of intracranial arterial stenosis. There is no sign of aneurysm or neovascularity. IMPRESSION: Normal CT angiogram of the neck. Normal CT angiogram of the brain.
--- NOTE | 2020-11-12 18:49 | CT ---
CT venogram of the brain. History headaches. Comparison none. FINDINGS: Exam performed with IV contrast Isovue 65 mL images of the brain obtained without and with IV contras t. Ventricles and sulci appear normal. There is no mass effect nor midline shift. There is no sign of in tracranial hemorrhage. Calvarium is intact. There is normal enhancement of the venous sinuses. There is no evidence of sinus vein thrombosis. IMPRESSION: Negative CT venogram of the brain.
[2020-11-12 20:37] LABS: Glucose,Whole Blood 130 mg/dL (75-99)
[2020-11-12] MEDS: MONTELUKAST 10 MG TAB PO SCH (20:54)
[2020-11-12] MEDS: PRAZOSIN 1 MG CAP PO SCH (20:54)
[2020-11-12] MEDS: ATORVASTATIN 40 MG TAB PO SCH (20:54)
[2020-11-12] MEDS: MELATONIN 3 MG TABLET PO SCH (20:54)
[2020-11-12] MEDS ORDERED: QUEtiapine 100 MG TAB PO SCH (21:00)
[2020-11-13 07:21] LABS: Glucose,Whole Blood 161 mg/dL (75-99)
[2020-11-13] MEDS: metFORMIN 850 MG TAB PO SCH ×2 (07:46→17:20)
[2020-11-13] MEDS: INSULIN ASPART (NovoLOG) 100 UNIT/ML VIAL SQ SCH ×4 (07:51→21:42)
[2020-11-13] MEDS: PANTOPRAZOLE 40 MG TABLET PO SCH (07:51)
[2020-11-13] MEDS: acetaZOLAMIDE 250 MG TAB PO SCH (09:04)
[2020-11-13] MEDS: HEPARIN SODIUM,PORCINE/PF 5,000 UNIT/0.5 ML SYRINGE SQ SCH ×2 (09:04→21:43)
[2020-11-13] MEDS: busPIRone HCl 10 MG TAB PO SCH ×3 (09:05→21:43)
[2020-11-13] MEDS: QUEtiapine 25 MG TAB PO SCH (09:05)
[2020-11-13] MEDS: METOPROLOL TARTRATE 25 MG TAB PO SCH ×2 (09:05→21:47)
--- NOTE | 2020-11-13 09:42 | P.PN ---
Subjective Progress Note Date: 11/13/20 The patient seen at bedside and she stated that her headache is improving and drastically better the last 2 days compared to initial presentation. She denies of any focal weakness, numbness, visual disturbance, any difficulty getting her words out. Objective - Vital Signs Vital signs: Vital Signs Temp 97.7 F 11/13/20 07:57 Pulse 95 11/13/20 07:57 Resp 16 11/13/20 07:57 BP 91/60 11/13/20 07:57 Pulse Ox 93 L 11/13/20 07:57 Intake & Output 11/12/20 11/13/20 11/13/20 18:59 06:59 18:59 Intake Total 520 480 Balance 520 480 Intake: Oral 520 480 Other: Voiding Method Toilet # Voids 2 - Exam GENERAL: The patient is lying in bed and is in mild tacute distress. NEUROLOGICAL: Higher mental function: The patient is awake, alert, oriented to self, place and time. Patient is following commands. No aphasia and no neglect. Cranial nerves: The pupils are round, equal and reactive to light and accommodation. Visual arroyo are full to confrontation throughout. Extraocular movement is intact no nystagmus is noted. Facial sensation is normal to touch throughout. The facial strength is normal throughout. Hearing is normal bilat erally to hand rub. Tongue is midline and moved [id number] without any difficulty. No dysarthria is noted. Motor: Gait is deferred. The strength is 5 over 5 throughout. Normal tone and bulk. Cerebellum: Normal finger to nose bilaterally. Sensation: Sensation is normal to touch throughout. WORK-UP: * Computed tomography scan of head showed no acute intracranial hemorrhage, mass effect or midline shift. * Computed tomography scan of the cervical spine showed no fracture, traumatic subluxation. * CT angiography of the head and neck is reported as normal. CT venogram is reported as negative. * MRI of the brain is reported as normal and no change. * Lumbar puncture: Opening pressure of was 28 cm of water which is slightly elevated the normal is less than 25. * CSF study: clear, colorless, 0 nucleated cells, glucose is 77 (slight elevated), protein 52 (normal). CSF study is normal. - Labs CBC & Chem 7: 11/10/20 19:30 11/12/20 13:43 Labs: Abnormal Lab Results - Last 24 Hours (Table) 11/12/20 11/12/20 11/12/20 Range/Units 09:52 09:59 11:16 POC Glucose (mg/dL) 152 H 150 H (75-99) mg/dL CSF Glucose 77 H (40-70) mg/dL 11/12/20 11/13/20 Range/Units 20:36 07:20 POC Glucose (mg/dL) 130 H 161 H (75-99) mg/dL CSF Glucose (40-70) mg/dL Microbiology - Last 24 Hours (Table) 11/12/20 09:59 CSF Gram Stain - Preliminary Cerebral Spinal Fluid CSF Culture - Preliminary Assessment and Plan Assessment: * Cephalgia: Seems status Migranoues( started 11/04/2020). Has slightly elevated opening pressure (28 cm of water (normal <25). Possibly concerning for pseudotumor cerebri). MRI Brain, CTA head.neck and CT Venography are normal---headache is improving. * History of Migraine headache * Depression * Polypharmacy Plan: * Continue metoprolol 25 mg twice a day (It will help with migraine prophylaxis as well). Continue Melantonin 3mg scheduled daily which helps with migraine (as seizure prophylaxis). * On Imitrex 25mg bid PRN and not to exceed twice a day as abortive. On Naproxen 1 tab bid PRN for headaches. * On Fiorcet 1 tab q8hrs PRN. * I stopped Acetazolamide and restarted the patient on Topamax 50mg bid which will help with migraine and decrease lowering CSF pressure (was on it in past but was on 50mg bid and not any other medication as stated above). Down the line if patient continues to have headache would recommend increasing Topamax to 75 twice a day or and up to 100 mg twice a day. * Patient has been seen by psychiatrist, diagnosed with major depressive disorder, recurrent, severe without psychotic features. Also has posttra umatic stress disorder, borderline personality disorder. Zyprexa and Elavil has been discontinued. Patient started on Seroquel 100 mg nightly. Continue Abilify, doxepin, prazosin, and Klonopin. * On benadryl 50mg PRN. * Consider as outpatient for her migraines can consider Botox injection or Aimovig but again will defer that decision to her neurologist as outpatient. * Patient to follow-up with her neurologist (Dr. Whelan) as outpatient within 1-2 weeks. The plan is discussed with her nurse and the primary team. The patient is clear from neurological stand point. Demario Casanova MD Neuro-Hospitalist Time with Patient: Less than 30
[2020-11-13] MEDS: SODIUM CHLORIDE 0.9% 1,000 ML IV SCH ×2 (09:55→17:21)
[2020-11-13 12:07] LABS: Glucose,Whole Blood 189 mg/dL (75-99)
[2020-11-13] MEDS: TOPIRAMATE 25 MG TAB PO SCH ×2 (12:17→21:44)
--- NOTE | 2020-11-13 12:50 | CDI ---
Documentation Clarification Form Date: 11/13/2020 12:34:44 PM From: Thania Soliman CCS, CCDS Admit Date: 11/09/2020 05:42:00 PM Patient Name: Elsy Ray Visit Number: [id number] Discharge Date: ATTENTION: The Clinical Documentation Specialists (CDI) and [facility] Coding Staff appreciate your assistance in clarifying documentation. Please respond to the clarification below the line at the bottom and electronically sign. The CDI & [facility] Coding staff will review the response and follow-up if needed. Please note: Queries are made part of the Legal Health Record. If you have any questions, please contact the author of this message via ITS. Dr. Adiel Prieto. Sheet: Asthma is documented in the Patient's Medical History in the 11/06 ED Note, the 11/07 H/P, the 11/07 Psychiatric Consult, the 11/07 Neurology Consult and in subsequent Progress Notes. Additional clarification regarding the type of asthma is requested. History/risk factors per the 11/07 H/P: Asthma, DM, GERD, Migraines, DDD, Endometriosis, Lupus, Pancreatitis, COVID Vaccinated, Anxiety, Depression, PTSD and Vaper use w/occasional Alcohol. Home meds inclue: INH Proair Hfa, Buspirone, Zyprexa, Singulair. Clinical Indicators: Presented to the ED on 11/07 with Migraine Headache occurring after IV infusion of Steroids for headaches per her Neurologist. Developed presyncope & dizziness, nausea and chest palpitations. ED Clinical Impression: Tachycardia, Dizziness, Headache 11/06 VS: T 98.1, P 142, R 18, BP 133/90, PO 97 - 94 RA, BMI: 39.4 11/06 LAB: Neut 8.0, Na 134, CO2 19.. 11/06 CXR: Normal chest. Treatment 11/06 - 11/09: IV Zofran, IV fl Na Cl 1,000 mls @ 999 mls/hr q1H x2, IV Toradol, IV Ativan, IV Benadryl, IV Reglan, IV Morphine, IV Rocephin, Heparin sq, IV Protonix, IV Valproic Acid x2, po Singulair. Please clarify the type and severity of asthma, if known: [ ] Extrinsic asthma [ ] without exacerbation [ ] Intrinsic asthma [ ] without exacerbation [ ] Mild intermittent asthma [ ] without exacerbation [ ] Mild persistent asthma [ ] without exacerbation [ ] Moderate persistent asthma [ ] without exacerbation [ ] Other, please specify ____ [ ] Unable to determine (Template Last Revised: June 2020) unable to determine MTDD
--- NOTE | 2020-11-13 13:29 | P.PN ---
Progress Note - Text Progress Note Date: 11/13/20 Interval History: Patient was seen today for psychiatric follow-up regarding patient's psychiatric condition. Patient was seen today with her one-to-one sitter at her side. She was watching television and appeared to be more appropriate and calm with documentation writer. She claims that she is still feeling somewhat depressed and anxious and claims that she didn't have much improvement in her sleep last night. She was requesting however Seroquel increased once again. She continues to claim that she is having a headache which was difficult to control for her. She showed improvement in her impulsivity and her insight today. She claims that she is hearing voices telling her to hurt herself however these voices have been improving. At this time patient denies any current suicidal or homical ideations, intent or plan. Patient denies any visual hallucinations and denies any paranoia or delusions. Patient denies any side effects from the medications and has been compliant with meds. Mental Status Exam: General Appearance: Patient appears to be overweight, stated age is alert, directable, and attempts to cooperate. Behavior: Patient is calmly seated without any agitated behavior. Appears to be less anxious Speech: Patient's speech is fluent and nonpressured. Mood/Affect: Mood is "better", affect is congruent and constricted Suicidality/Homicidality: Patient denies having any suicidal or homicidal ideation intent or plan. Perceptions: Patient denies any visual hallucinations and patient admits to ongoing auditory hallucinations of voices telling her negative things and to hurt herself. Though content/process: There is no evidence of any delusional thought content and thought process is linear and goal-directed. Memory and concentration: AOX3, grossly intact for the purposes of this session Judgment and insight: Chronically poor Assessment Major depressive disorder, recurrent, severe Borderline personality disorder History of PTSD Plan: -At this time patient DOES meet criteria for inpatient psychiatric admission once she is medically cleared. -Would recommend the following medication changes/additions: continue with prazosin and melatonin doses. zyprexa PRN both IM and PO options for agitation/aggression. Increased seroquel to 300mg hs + 25mg daily. Do not give patient any more benzodiazepines. -continue with 1:1 sitter for safety until pt is transferred to psych -Cannot leave AMA at this time. Patient will need a petition and certification if attempting to leave AMA. -When medically stable, patient is eligible for transfer to a psych bed when available. -Communicated plan to patient's nurse -Psychiatry will sign off at this time. -Please contact with any questions.
[2020-11-13 17:09] LABS: Glucose,Whole Blood 159 mg/dL (75-99)
[2020-11-13] MEDS ORDERED: QUEtiapine 100 MG TAB PO SCH (21:00)
[2020-11-13 21:42] LABS: Glucose,Whole Blood 132 mg/dL (75-99)
[2020-11-13] MEDS: ATORVASTATIN 40 MG TAB PO SCH (21:43)
[2020-11-13] MEDS: MELATONIN 3 MG TABLET PO SCH (21:43)
[2020-11-13] MEDS: MONTELUKAST 10 MG TAB PO SCH (21:43)
[2020-11-13] MEDS: PRAZOSIN 1 MG CAP PO SCH (21:45)
--- NOTE | 2020-11-13 22:21 | P.DS ---
Providers Date of admission: 11/09/20 17:42 Attending physician: Teo Leblanc Consults: 11/06/20 22:04 Consult Physician Routine Consulting Provider: [facility] Consult Reason/Comments: Tachycardia Do you want consulting provider notified?: Yes 11/07/20 12:27 Consult Physician Urgent Consulting Provider: Cristine Almeida Consult Reason/Comments: resistant migrain Do you want consulting provider notified?: Yes 11/09/20 10:42 Consult Physician Urgent Consulting Provider: Kane Urrutia Consult Reason/Comments: depression, significant psych history Do you want consulting provider notified?: Yes 11/11/20 12:43 Consult to Anesthesia Routine Consulting Provider: Anesthesia,Services Consult Reason/Comments: Lumbar puncture. Rule out pseudotumor cerebri. Need opening closing press Primary care physician: Sugey Recinos Hospital Course: Diagnoses: Patient with severe depression, meet inpatient psychiatric criteria Fall in the bathroom on 11/10, to she slipped on the floor Acute urinary tract infection, improved. Urine culture is negative. Discontinue antibiotics Severe migraine headache, evaluated by neurologist and cleared for discharge Episode of palpitation and presyncope, most likely secondary to dehydration, episodes of vomiting, lack of eating . Improved Dehydration. Improved Diabetes mellitus , with hyperglycemia and hemoglobin A1c 7.4% chronic tachycardia, could be related to stress from her mental health illness, associated with infection Low phosphorus History of asthma History of migraine headache History of GERD History of degenerative disc disease History of endometriosis History of lupus History of pancreatitis History of anxiety, depression and PTSD Hospital course: This is a pleasant 30 years old female with past medical history of asthma, diabetes mellitus, migraine headache, GERD, degenerative disc disease, endometriosis, lupus, pancreatitis anxiety and depression and PTSD She was admitted to the mental health unit on 06/2020 for major depressive disorders with no psychotic features, PTSD and borderline personality disorder. Patient had multiple visits to the emergency room, each month and average of 3-6 visits for the last 2-3 years Patient went to see her neurologist Dr. Whelan whom she follows up for her migraine headache which she has since age 17 and low back pain for the last 8 years secondary to degenerative disc disease. She goes to Dr. Whelan office to get IV infusion whenever she has migraine headache severe enough, this is the fourth time when she went one day earlier and she got IV steroids, Toradol, Reglan and Benadryl in an hour after the infusion she had an episode of presyncope dizziness associated with funny feeling of the chest secondary to palpitation with no chest pain. Patient found to have severe migraine headache difficult to be controlled with medication because of this lumbar puncture was ordered showing mildly elevated opening intracranial pressure at 28 cm, and a closing pressure was 17 cm, after the procedure patient continued to have headache. Medication was adjusted by neurologist, including metoprolol to help with prophylaxis for migraine, Imitrex twice a day as needed Fioricet as needed, Topamax 50 mg twice a day which can be increased to 75 mg or 100 mg twice a day if she continued to complain of from severe headache Patient has been evaluated by psychiatrist for severe depression and started on Seroquel 100 mg nightly. Continue Abilify, doxepin, prazosin, and Klonopin. Also Benadryl 50 mg when necessary Per neurologist Consider as outpatient for her migraines can consider Botox injection or Aimovig but again will defer that decision to her neurologist as outpatient. Patient will need to follow up with her neurologist Dr. Whelan in 1-2 weeks after discharge Also patient was having problem with her significant other/ and her stepdaughter and now she left the house and was looking for long-term, she was severely depressed and withdrawn Most of the time. Because of this psychiatrist evaluated the patient and found her meets inpatient psychiatric criteria. Sitter At bedside all the time Other than that she denies chest pain or dyspnea. No coughing. No abdominal complaint. Change in urine or bowel habits. No fever Patient was cleared for discharge by neurologist Problems and management plan were discussed with the patient and he verbalized understanding and acceptance Patient was found stable and can be discharged home however he needs follow-up as an outpatient. Patient was instructed to follow up with PCP within one week and patient agrees Patient was instructed to follow up with a neurologist Dr. Whelan in 1-2 weeks after discharge and she agrees Patient currently is medically stable to be transferred to 3 [address]. psych unit, patient is agreeable to be transferred Physical exam Gen: patient is a AAOx3, no distress CVS: S1-S2, RRR, no murmur Lungs: B/L CTA, no wheezing Abdomen: soft, no distention, no tenderness, positive bowel sounds Extremity: no leg edema or induration Neurological: Cranial nerves are grossly intact. Strength is 5/5. Sensation is intact. Meningeal signs are absent. Psychiatric: Patient is depressed, feels hopeless and worthless. Crying all the time. Time spent more than 35 minutes Patient Condition at Discharge: Serious Plan - Discharge Summary Discharge Rx Participant: Yes New Discharge Prescriptions: New Divalproex ER [Depakote ER] 250 mg PO BID #60 tab.er.24h Amitriptyline HCl [Elavil] 25 mg PO HS #30 tab metFORMIN HCL [Glucophage] 500 mg PO BID-W/MEALS #60 tab Continue Omeprazole [PriLOSEC] 40 mg PO HS Atorvastatin [Lipitor] 40 mg PO HS 30 Days tab ARIPiprazole [Abilify] 7.5 mg PO HS busPIRone HCL 15 mg PO TID clonazePAM [KlonoPIN] 0.5 mg PO Q7D PRN PRN Reason: Anxiety hydrOXYzine pamoate [Vistaril] 50 mg PO QID PRN PRN Reason: Anxiety PARoxetine [Paxil] 10 mg PO HS tiZANidine HCL 4 mg PO BID PRN PRN Reason: Pain Fenofibrate Nanocrystallized [Fenofibrate] 145 mg PO HS Rizatriptan Benzoate [Rizatriptan] 10 mg PO BID PRN PRN Reason: Migraine Headache Prazosin [Minipress] 5 mg PO HS Rimegepant Sulfate [Nurtec Odt] 75 mg PO DAILY PRN PRN Reason: Migraine Headache Doxepin HCl [SINEquan] 150 mg PO HS OLANZapine [ZyPREXA] 5 mg PO HS Montelukast Sodium [Singulair] 10 mg PO HS Discontinued Ondansetron Odt [Zofran Odt] 4 mg PO Q8HR PRN #10 tab PRN Reason: Nausea Doxycycline Hyclate [Vibramycin] 100 mg PO BID Propranolol [Inderal] 10 mg PO TID PRN PRN Reason: Anxiety Diclofenac Sodium [Voltaren] 75 mg PO BID diphenhydrAMINE [Benadryl] 50 mg PO HS metFORMIN HCL [metFORMIN HCL ER] 750 mg PO W/SUPPER No Action Albuterol Sulfate [Proair Hfa] 1 - 2 puff INHALATION Q6HR PRN PRN Reason: Shortness Of Breath Or Wheezing Discharge Medication List Omeprazole [PriLOSEC] 40 mg PO HS 03/04/20 [History] Atorvastatin [Lipitor] 40 mg PO HS 30 Days tab 07/01/20 [Rx] ARIPiprazole [Abilify] 7.5 mg PO HS 08/13/20 [History] PARoxetine [Paxil] 10 mg PO HS 08/13/20 [History] Prazosin [Minipress] 5 mg PO HS 08/13/20 [History] busPIRone HCL 15 mg PO TID 08/13/20 [History] clonazePAM [KlonoPIN] 0.5 mg PO Q7D PRN 08/13/20 [History] hydrOXYzine pamoate [Vistaril] 50 mg PO QID PRN 08/13/20 [History] Doxepin HCl [SINEquan] 150 mg PO HS 11/06/20 [History] Fenofibrate Nanocrystallized [Fenofibrate] 145 mg PO HS 11/06/20 [History] Montelukast Sodium [Singulair] 10 mg PO HS 11/06/20 [History] OLANZapine [ZyPREXA] 5 mg PO HS 11/06/20 [History] Rimegepant Sulfate [Nurtec Odt] 75 mg PO DAILY PRN 11/06/20 [History] Rizatriptan Benzoate [Rizatriptan] 10 mg PO BID PRN 11/06/20 [History] tiZANidine HCL 4 mg PO BID PRN 11/06/20 [History] Amitriptyline HCl [Elavil] 25 mg PO HS #30 tab 11/09/20 [Rx] Divalproex ER [Depakote ER] 250 mg PO BID #60 tab.er.24h 11/09/20 [Rx] metFORMIN HCL [Glucophage] 500 mg PO BID-W/MEALS #60 tab 11/09/20 [Rx] Albuterol Sulfate [Proair Hfa] 1 - 2 puff INHALATION Q6HR PRN 11/11/20 [History] Follow up Appointment(s)/Referral(s): Jorje Mayes MD [Primary Care Provider] - 11/13/20 10:10 am Anil Whelan MD [Medical Doctor] - 1 Week (for migraine headache) Activity/Diet/Wound Care/Special Instructions: Low carbohydrate diet 1600 kcal per day Activity is restricted until you see your doctor pt can be dc to psych unit in [facility], with staff or sitter with her Discharge/Stand Alone Forms: [facility] Instructions
[2020-11-14 01:01] VITALS: BP 109/77; PULSE 96; RESP 16; TEMP 98
[2020-11-15 16:38] LABS: Metanephrine, Free <25 pg/mL (< OR = 57); Normetanephrine, Free 37 pg/mL (< OR = 148); Total, Free (MN + NMN) 37 pg/mL (< OR = 205)
== END 2020-11-14 00:22 | DRG 103 ==
LOC: EC 19:06 → 3SCARD 23:22 → 4SSUR 11-09 12:39 → OBSVTOIN 11-09 17:42
PROVIDERS: ADMIT Hospitalist; ATTEND Hospitalist
PROC: 009U3ZX Drainage of Spinal Canal, Percutaneous Approach, Diagnostic (ICD-10-PCS; principal; 2020-11-12 11:30)
DX: G43.901 Migraine, unspecified, not intractable, with status migrainosus (principal); F33.2 Major depressive disorder, recurrent severe without psychotic features; N39.0 Urinary tract infection, site not specified; M32.9 Systemic lupus erythematosus, unspecified; I95.9 Hypotension, unspecified; E11.65 Type 2 diabetes mellitus with hyperglycemia; E86.0 Dehydration; F60.3 Borderline personality disorder; J45.909 Unspecified asthma, uncomplicated; K21.9 Gastro-esophageal reflux disease without esophagitis; F43.10 Post-traumatic stress disorder, unspecified; G47.00 Insomnia, unspecified; S09.90XA Unspecified injury of head, initial encounter; W01.0XXA Fall on same level from slipping, tripping and stumbling without subsequent striking against object, initial encounter; F41.9 Anxiety disorder, unspecified; N80.9 Endometriosis, unspecified; E83.39 Other disorders of phosphorus metabolism; R00.0 Tachycardia, unspecified; Z79.84 Long term (current) use of oral hypoglycemic drugs; Z79.899 Other long term (current) drug therapy; Z82.49 Family history of ischemic heart disease and other diseases of the circulatory system; R11.2 Nausea with vomiting, unspecified; Z86.19 Personal history of other infectious and parasitic diseases; Z59.0 Homelessness; Z81.8 Family history of other mental and behavioral disorders; Z81.1 Family history of alcohol abuse and dependence; Z82.61 Family history of arthritis; Z81.3 Family history of other psychoactive substance abuse and dependence; Z82.0 Family history of epilepsy and other diseases of the nervous system; Z88.5 Allergy status to narcotic agent; Z88.0 Allergy status to penicillin; Z88.2 Allergy status to sulfonamides; Z88.8 Allergy status to other drugs, medicaments and biological substances; Z91.030 Bee allergy status; Z91.040 Latex allergy status; Z62.810 Personal history of physical and sexual abuse in childhood
CPT/HCPCS: 36415; 62270; 70450; 70496; 70498; 70553; 71045; 71046; 72125; 80048; 80053; 80076; 80143; 80179; 80306; 80320; 81001; 81025; 82565; 82945; 83036; 83735; 83835; 84100; 84157; 84439; 84443; 84484; 84520; 85025; 85610; 85730; 87070; 87086; 87205; 88108; 89050; 93005; 93306; 96361; 96374; 96375; 99152; 99285

== ENCOUNTER 2020-11-13 23:37 | Inpatient (IN) | payer MEDICAID, OTHER ==
[2020-11-14] MEDS ORDERED: ACETAMINOPHEN TAB 325 MG TAB PO PRN (00:28)
[2020-11-14] MEDS ORDERED: MAG HYDROX/AL HYDROX/SIMETH 30 ML CUP PO PRN (00:28)
[2020-11-14] MEDS ORDERED: MAGNESIUM HYDROXIDE 2,400 MG/10 ML CUP PO PRN (00:28)
[2020-11-14] MEDS ORDERED: ALBUTEROL HFA INHALER INHALATION PRN (01:00)
[2020-11-14] MEDS ORDERED: hydrOXYzine pamoate 25 MG CAP PO PRN (01:00)
[2020-11-14] MEDS ORDERED: tiZANidine 4 MG TAB PO PRN (02:00)
[2020-11-14] MEDS ORDERED: metFORMIN 850 MG TAB PO SCH (07:30)
[2020-11-14 08:07] LABS: Glucose,Whole Blood 148 mg/dL (75-99)
[2020-11-14] MEDS ORDERED: DIVALPROEX ER 250 MG TAB.ER.24H PO SCH (09:00)
[2020-11-14] MEDS ORDERED: NON FORMULARY DRUG (Rimegepant Sulfate [Nurtec Odt] 75 MG Tab.Rapdis) PO PRN (09:00)
[2020-11-14] MEDS ORDERED: SODIUM CHLORIDE 0.9% 500 ML 500 ML IV ONE (09:38)
[2020-11-14 09:39] LABS: Glucose,Whole Blood 168 mg/dL (75-99)
[2020-11-14 10:47] VITALS: TEMP 97.4
[2020-11-14 11:17] VITALS: BP 103/59; PULSE 111; RESP 16
[2020-11-14] MEDS ORDERED: METOCLOPRAMIDE 5 MG/ML 2 ML VIAL IVP STA (11:22)
[2020-11-14] MEDS ORDERED: SODIUM CHLORIDE 0.9% 1,000 ML IV ONE (11:23)
[2020-11-14] MEDS ORDERED: KETOROLAC 15 MG/ML 1 ML VIAL IVP STA (11:23)
[2020-11-14 12:47] LABS: Glucose,Whole Blood 137 mg/dL (75-99)
[2020-11-14 13:04] LABS: Basophils % (A) 0 %; Eosinophils # (A) 0.1 k/uL (0-0.7); Eosinophils % (A) 1 %; HCT 39.1 % (34.0-46.0); HGB 12.8 gm/dL (11.4-16.0); Lymphocytes # (A) 2.2 k/uL (1.0-4.8); Lymphocytes % (A) 30 %; MCH 30.7 pg (25.0-35.0); MCHC 32.7 g/dL (31.0-37.0); MCV 93.8 fL (80.0-100.0); Mean Platelet Volume 7.9; Monocytes # (A) 0.3 k/uL (0-1.0); Monocytes % (A) 4 %; Neutrophils # (A) 4.7 k/uL (1.3-7.7); Neutrophils % (A) 64 %; Platelet Count 261 k/uL (150-450); RBC 4.17 m/uL (3.80-5.40); RDW 13.5 % (11.5-15.5); WBC 7.4 k/uL (3.8-10.6)
[2020-11-14 13:18] LABS: ALT 29 U/L (4-34); AST 42 U/L (14-36); African American GFR (CKD) >90 (>60 ml/min/1.73 sqM); Albumin 3.7 g/dL (3.5-5.0); Alkaline Phosphatase 60 U/L (38-126); Anion Gap 9 mmol/L; Bilirubin, Delta 0.2 mg/dL (0.0-0.2); Bilirubin,Unconjugated 0.2 mg/dL (0.0-1.1); Blood Urea Nitrogen 15 mg/dL (7-17); Calcium 10.1 mg/dL (8.4-10.2); Carbon Dioxide 14 mmol/L (22-30); Chloride 112 mmol/L (98-107); Glucose 139 mg/dL (74-99); Non-African American GFR(CKD) >90 (>60 ml/min/1.73 sqM); Potassium 4.3 mmol/L (3.5-5.1); Sodium 135 mmol/L (137-145); Total Bilirubin 0.4 mg/dL (0.2-1.3); Total Protein 6.7 g/dL (6.3-8.2)
[2020-11-14 13:26] LABS: Magnesium 1.7 mg/dL (1.6-2.3)
[2020-11-14] MEDS ORDERED: MONTELUKAST 10 MG TAB PO SCH (21:00)
[2020-11-14] MEDS ORDERED: PANTOPRAZOLE 40 MG TABLET PO SCH (21:00)
[2020-11-14] MEDS ORDERED: ARIPiprazole 15 MG TAB PO SCH (21:00)
[2020-11-14] MEDS ORDERED: AMITRIPTYLINE HCL 25 MG TAB PO SCH (21:00)
[2020-11-14] MEDS ORDERED: ATORVASTATIN 40 MG TAB PO SCH (21:00)
[2020-11-14] MEDS ORDERED: QUEtiapine 100 MG TAB PO SCH (21:00)
[2020-11-14] MEDS ORDERED: FENOFIBRATE 160 MG TAB PO SCH (21:00)
[2020-11-14 22:35] LABS: Hemoglobin A1C 7.1 % (4.0-6.0)
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
== END 2020-11-14 13:37 | disposition short-term general hospital (02) | DRG 885 ==
LOC: 3MHU 11-14 00:23
PROVIDERS: ADMIT Psychiatry & Neurology Psychiatry; ATTEND Psychiatry & Neurology Psychiatry
DX: F32.89 Other specified depressive episodes (principal); N39.0 Urinary tract infection, site not specified; E11.65 Type 2 diabetes mellitus with hyperglycemia; E86.0 Dehydration; F43.10 Post-traumatic stress disorder, unspecified; I95.9 Hypotension, unspecified; G43.909 Migraine, unspecified, not intractable, without status migrainosus; J45.909 Unspecified asthma, uncomplicated; M32.9 Systemic lupus erythematosus, unspecified; Z91.81 History of falling; Z79.84 Long term (current) use of oral hypoglycemic drugs; Z79.899 Other long term (current) drug therapy; Z82.49 Family history of ischemic heart disease and other diseases of the circulatory system; Z98.890 Other specified postprocedural states; Z88.0 Allergy status to penicillin; Z88.2 Allergy status to sulfonamides; Z88.8 Allergy status to other drugs, medicaments and biological substances; Z91.030 Bee allergy status; Z91.040 Latex allergy status; Z81.1 Family history of alcohol abuse and dependence; Z81.3 Family history of other psychoactive substance abuse and dependence
CPT/HCPCS: 80048; 80076; 83036; 83735; 85025

== ENCOUNTER 2020-11-14 12:09 | Observation (INO) | payer OTHER ==
[2020-11-14] MEDS ORDERED: ALBUTEROL NEBULIZED 2.5 MG/3 ML INHALATION PRN (14:50)
[2020-11-14] MEDS ORDERED: NAPROXEN 250 MG TAB PO PRN (14:50)
[2020-11-14] MEDS ORDERED: RIMEGEPANT SULFATE 75 MG PO PRN (14:50)
[2020-11-14] MEDS ORDERED: tiZANidine 4 MG TAB PO PRN (14:50)
[2020-11-14] MEDS ORDERED: SUMAtriptan succinate 25 MG TAB PO PRN (14:50)
[2020-11-14] MEDS: metFORMIN 850 MG TAB PO SCH (16:34)
[2020-11-14] MEDS: busPIRone HCl 10 MG TAB PO SCH ×2 (16:34→20:30)
[2020-11-14] MEDS ORDERED: METOPROLOL TARTRATE 25 MG TAB PO SCH (17:00)
[2020-11-14 17:04] LABS: Glucose,Whole Blood 123 mg/dL (75-99)
[2020-11-14] MEDS: SODIUM CHLORIDE 0.9% 1,000 ML IV SCH (17:14)
[2020-11-14 17:31] LABS: HCT 39.9 % (34.0-46.0); HGB 13.7 gm/dL (11.4-16.0); MCH 31.9 pg (25.0-35.0); MCHC 34.3 g/dL (31.0-37.0); MCV 92.9 fL (80.0-100.0); Mean Platelet Volume 7.4; Platelet Count 260 k/uL (150-450); RBC 4.29 m/uL (3.80-5.40); RDW 13.5 % (11.5-15.5); WBC 8.4 k/uL (3.8-10.6)
[2020-11-14 17:55] LABS: African American GFR (CKD) >90 (>60 ml/min/1.73 sqM); Anion Gap 11 mmol/L; Blood Urea Nitrogen 14 mg/dL (7-17); Calcium 10.4 mg/dL (8.4-10.2); Carbon Dioxide 14 mmol/L (22-30); Chloride 110 mmol/L (98-107); Glucose 127 mg/dL (74-99); Non-African American GFR(CKD) >90 (>60 ml/min/1.73 sqM); Potassium 4.1 mmol/L (3.5-5.1); Sodium 135 mmol/L (137-145)
[2020-11-14] MEDS ORDERED: KETOROLAC 15 MG/ML 1 ML VIAL IVP SCH (18:00)
[2020-11-14 20:05] LABS: Glucose,Whole Blood 137 mg/dL (75-99)
[2020-11-14] MEDS: MONTELUKAST 10 MG TAB PO SCH (20:30)
[2020-11-14] MEDS: INSULIN ASPART (NovoLOG) 100 UNIT/ML VIAL SQ SCH (20:30)
[2020-11-14] MEDS: QUEtiapine 100 MG TAB PO SCH (20:30)
[2020-11-14] MEDS: ATORVASTATIN 40 MG TAB PO SCH (20:30)
[2020-11-14] MEDS: TOPIRAMATE 25 MG TAB PO SCH (20:30)
[2020-11-14] MEDS: FENOFIBRATE 160 MG TAB PO SCH (20:30)
[2020-11-14] MEDS: METOCLOPRAMIDE 5 MG/ML 2 ML VIAL IVP PRN (20:31)
[2020-11-14] MEDS: diphenhydrAMINE 50 MG/ML 1 ML VIAL IVP PRN (20:31)
[2020-11-14] MEDS: KETOROLAC 15 MG/ML 1 ML VIAL IVP PRN (20:31)
[2020-11-14] MEDS ORDERED: MELATONIN 3 MG TABLET PO SCH (21:00)
[2020-11-14] MEDS ORDERED: MIDODRINE 5 MG TAB PO ONE (23:06)
[2020-11-14] MEDS ORDERED: SODIUM CHLORIDE 0.9% 1,000 ML IV ONE (23:08)
[2020-11-15] MEDS: SODIUM CHLORIDE 0.9% 1,000 ML IV SCH ×2 (00:11→20:33)
[2020-11-15] MEDS: METOCLOPRAMIDE 5 MG/ML 2 ML VIAL IVP PRN ×4 (03:39→23:42)
[2020-11-15] MEDS: KETOROLAC 15 MG/ML 1 ML VIAL IVP PRN ×4 (03:39→23:42)
[2020-11-15] MEDS: diphenhydrAMINE 50 MG/ML 1 ML VIAL IVP PRN ×4 (03:39→23:43)
[2020-11-15] MEDS: BUTA/APAP/CAF/COD 50-325-40-30 CAP PO PRN ×2 (05:08→21:38)
[2020-11-15 06:06] LABS: Glucose,Whole Blood 129 mg/dL (75-99)
[2020-11-15] MEDS: INSULIN ASPART (NovoLOG) 100 UNIT/ML VIAL SQ SCH ×4 (06:11→21:13)
[2020-11-15] MEDS: PANTOPRAZOLE 40 MG TABLET PO SCH (06:18)
[2020-11-15] MEDS: metFORMIN 850 MG TAB PO SCH ×2 (06:18→17:47)
[2020-11-15 08:18] LABS: Basophils % (A) 1 %; Eosinophils # (A) 0.2 k/uL (0-0.7); Eosinophils % (A) 3 %; HCT 37.6 % (34.0-46.0); HGB 12.8 gm/dL (11.4-16.0); Lymphocytes # (A) 2.9 k/uL (1.0-4.8); Lymphocytes % (A) 51 %; MCH 31.8 pg (25.0-35.0); MCV 93.6 fL (80.0-100.0); Mean Platelet Volume 6.9; Monocytes # (A) 0.3 k/uL (0-1.0); Monocytes % (A) 4 %; Neutrophils # (A) 2.2 k/uL (1.3-7.7); Neutrophils % (A) 39 %; Platelet Count 253 k/uL (150-450); RBC 4.02 m/uL (3.80-5.40); RDW 14.1 % (11.5-15.5); WBC 5.7 k/uL (3.8-10.6)
[2020-11-15 08:32] LABS: African American GFR (CKD) >90 (>60 ml/min/1.73 sqM); Anion Gap 6 mmol/L; Blood Urea Nitrogen 13 mg/dL (7-17); Calcium 9.9 mg/dL (8.4-10.2); Carbon Dioxide 17 mmol/L (22-30); Chloride 112 mmol/L (98-107); Glucose 120 mg/dL (74-99); Non-African American GFR(CKD) >90 (>60 ml/min/1.73 sqM); Potassium 4.1 mmol/L (3.5-5.1); Sodium 135 mmol/L (137-145)
[2020-11-15] MEDS: OLANZapine 7.5 MG TAB PO PRN (08:36)
[2020-11-15] MEDS: METOPROLOL TARTRATE 12.5 MG TAB PO SCH (08:36)
[2020-11-15] MEDS: busPIRone HCl 10 MG TAB PO SCH ×3 (08:36→21:14)
[2020-11-15] MEDS: HEPARIN SODIUM,PORCINE/PF 5,000 UNIT/0.5 ML SYRINGE SQ SCH ×2 (08:36→21:13)
[2020-11-15] MEDS: QUEtiapine 25 MG TAB PO SCH (08:36)
[2020-11-15] MEDS: TOPIRAMATE 25 MG TAB PO SCH ×2 (08:36→21:14)
[2020-11-15] MEDS ORDERED: FAMOTIDINE 20 MG/2 ML VIAL IV SCH (09:00)
[2020-11-15 11:56] LABS: Glucose,Whole Blood 166 mg/dL (75-99)
[2020-11-15 13:18] LABS: Basophils % (A) 1 %; Eosinophils # (A) 0.2 k/uL (0-0.7); Eosinophils % (A) 3 %; HCT 39.1 % (34.0-46.0); HGB 13.5 gm/dL (11.4-16.0); Lymphocytes # (A) 2.7 k/uL (1.0-4.8); Lymphocytes % (A) 39 %; MCH 32.8 pg (25.0-35.0); MCHC 34.6 g/dL (31.0-37.0); MCV 94.7 fL (80.0-100.0); Mean Platelet Volume 7.6; Monocytes # (A) 0.5 k/uL (0-1.0); Monocytes % (A) 6 %; Neutrophils # (A) 3.4 k/uL (1.3-7.7); Neutrophils % (A) 49 %; Platelet Count 273 k/uL (150-450); RBC 4.13 m/uL (3.80-5.40); RDW 14.1 % (11.5-15.5)
[2020-11-15 13:28] LABS: ALT 32 U/L (4-34); African American GFR (CKD) >90 (>60 ml/min/1.73 sqM); Anion Gap 10 mmol/L; Blood Urea Nitrogen 12 mg/dL (7-17); Calcium 10.4 mg/dL (8.4-10.2); Carbon Dioxide 13 mmol/L (22-30); Chloride 113 mmol/L (98-107); Glucose 131 mg/dL (74-99); Non-African American GFR(CKD) >90 (>60 ml/min/1.73 sqM); Sodium 136 mmol/L (137-145); Total Bilirubin 0.5 mg/dL (0.2-1.3); Total Protein 7.3 g/dL (6.3-8.2)
[2020-11-15 13:29] LABS: AST 52 U/L (14-36); Potassium 4.4 mmol/L (3.5-5.1)
[2020-11-15 13:30] LABS: Alkaline Phosphatase 66 U/L (38-126)
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
[2020-11-15 17:02] LABS: Glucose,Whole Blood 121 mg/dL (75-99)
--- NOTE | 2020-11-15 17:52 | P.HPIM ---
History of Present Illness H&P Date: 11/15/20 Chief Complaint: Hypotension/chest pain 30 years old female with past medical history of asthma, diabetes mellitus, migraine headache, GERD, degenerative disc disease, endometriosis, lupus, pancreatitis anxiety and depression and PTSD She was admitted to the mental health unit on 06/2020 for major depressive disorders with no psychotic features, PTSD and borderline personality disorder. Patient had multiple visits to the emergency room, each month and average of 3-6 visits for the last 2-3 years Patient went to see her neurologist Dr. Whelan whom she follows up for her migraine headache which she has since age 17 and low back pain for the last 8 years secondary to degenerative disc disease. She goes to Dr. Whelan office to get IV infusion whenever she has migraine headache severe enough, this is the fourth time when she went one day earlier and she got IV steroids, Toradol, Reglan and Benadryl in an hour after the infusion she had an episode of presyncope dizziness associated with funny feeling of the chest secondary to palpitation with no chest pain. Patient found to have severe migraine headache difficult to be controlled with medication because of this lumbar puncture was ordered showing mildly elevated opening intracranial pressure at 28 cm, and a closing pressure was 17 cm, after the procedure patient continued to have headache. Medication was adjusted by neurologist, including metoprolol to help with prophylaxis for migraine, Imitrex twice a day as needed Fioricet as needed, Topamax 50 mg twice a day which can be increased to 75 mg or 100 mg twice a day if she continued to complain of from severe headache Patient has been evaluated by psychiatrist for severe depression and started on Seroquel 100 mg nightly. Continue Abilify, doxepin, prazosin, and Klonopin. Also Benadryl 50 mg when necessary Per neurologist Consider as outpatient for her migraines can consider Botox injection or Aimovig but again will defer that decision to her neurologist as outpatient. Patient will need to follow up with her neurologist Dr. Whelan in 1-2 weeks after discharge Also patient was having problem with her significant other/ and her step daughter and now she left the house and was looking for [facility], she was severely depressed and withdrawn Most of the time. Because of this psychiatrist evaluated the patient and found her meets inpatient psychiatric criteria. Sitter At bedside all the time Other than that she denies chest pain or dyspnea. No coughing. No abdominal complaint. Change in urine or bowel habits. No fever Patient was cleared for discharge by neurologist Problems and management plan were discussed with the patient and he verbalized understanding and acceptance Patient was found stable and can be discharged home however he needs follow-up as an outpatient. Patient was instructed to follow up with PCP within one week and patient agrees Patient was instructed to follow up with a neurologist Dr. Whelan in 1-2 weeks after discharge and she agrees Patient currently is medically stable to be transferred to 3 . psych unit, patient is agreeable to be transferred Review of Systems REVIEW OF SYSTEMS: CONSTITUTIONAL: No fever, no malaise, no fatigue. HEENT: No recent visual problems or hearing problems. Denied any sore throat. CARDIOVASCULAR: No chest pain, orthopnea, PND, no palpitations, no syncope. PULMONARY: No shortness of breath, no cough, no hemoptysis. GASTROINTESTINAL: No diarrhea, no nausea, no vomiting, no abdominal pain. NEUROLOGICAL: No headaches, no weakness, no numbness. HEMATOLOGICAL: Denies any bleeding or petechiae. GENITOURINARY: Denies any burning micturition, frequency, or urgency. MUSCULOSKELETAL/RHEUMATOLOGICAL: Denies any joint pain, swelling, or any muscle pain. ENDOCRINE: Denies any polyuria or polydipsia. The rest of the 14-point review of systems is negative. Past Medical History Past Medical History: Asthma, Diabetes Mellitus, GERD/Reflux Additional Past Medical History / Comment(s): migraines, degenerative disk disease, endometriosis, lupus, pancreatitis, covid vaccine moderna History of Any Multi-Drug Resistant Organisms: None Reported Past Surgical History: Orthopedic Surgery Additional Past Surgical History / Comment(s): laparoscopc surgery for endometriosis, cyst removed from left foot, EGD, Past Anesthesia/Blood Transfusion Reactions: Previous Problems w/ Anesthesia Additional Past Anesthesia/Blood Transfusion Reaction / Comment(s): hard to wake up for 48-72 hours after laparoscopic surgery-was in hosp. for 3 days Past Psychological History: Anxiety, Depression, PTSD Smoking Status: Never smoker, Vaper Past Alcohol Use History: None Reported Additional Past Alcohol Use History / Comment(s): pt states that she occasionally has a "glass or two" of vodka that she mixes with Mountain Dew. Past Drug Use History: Marijuana Additional Drug Use History / Comment(s): pt states that "I hit the vape constantly through the day." pt reports that she has a 100 mg vape pen that she refills 6 times per day. - Past Family History Mother Family Medical History: No Reported History Additional Family Medical History / Comment(s): hx migraines Father Family Medical History: Coronary Artery Disease (CAD), Hypertension Additional Family Medical History / Comment(s): ddd, alcoholism & drug use Medications and Allergies Home Medications Medication Instructions Recorded Confirmed Type Atorvastatin [Lipitor] 40 mg PO HS 30 Days tab 07/01/20 11/14/20 Rx ARIPiprazole [Abilify] 7.5 mg PO HS 08/13/20 11/14/20 History Prazosin [Minipress] 5 mg PO HS 08/13/20 11/14/20 History Fenofibrate Nanocrystallized 145 mg PO HS 11/06/20 11/14/20 History [Fenofibrate] Montelukast Sodium [Singulair] 10 mg PO HS 11/06/20 11/14/20 History Rimegepant Sulfate [Nurtec Odt] 75 mg PO DAILY PRN 11/06/20 11/14/20 History tiZANidine HCL 4 mg PO BID PRN 11/06/20 11/14/20 History Albuterol Sulfate [Proair Hfa] 1 - 2 puff INHALATION Q6HR PRN 11/11/20 11/14/20 History Buta/APAP/Caf/Cod 91-898-71-30 1 each PO Q8HR PRN cap 11/13/20 11/14/20 Rx [Fioricet w/Cod 38-064-46-30MG] Melatonin 3 mg PO HS tablet 11/13/20 11/14/20 Rx Metoprolol Tartrate [Lopressor] 12.5 mg PO BID tab 11/13/20 11/14/20 Rx Naproxen [Naprosyn] 375 mg PO BID PRN tab 11/13/20 11/14/20 Rx OLANZapine [ZyPREXA] 7.5 mg PO TID PRN tab 11/13/20 11/14/20 Rx Pantoprazole [Protonix] 40 mg PO AC-BRKFST tablet. 11/13/20 11/14/20 Rx QUEtiapine [SEROquel] 25 mg PO DAILY tab 11/13/20 11/14/20 Rx QUEtiapine [SEROquel] 300 mg PO HS tab 11/13/20 11/14/20 Rx SUMAtriptan succinate [Imitrex] 25 mg PO BID PRN tab 11/13/20 11/14/20 Rx Topiramate [Topamax] 50 mg PO BID tab 11/13/20 11/14/20 Rx busPIRone HCl [Buspar] 20 mg PO TID tab 11/13/20 11/14/20 Rx metFORMIN HCL [Glucophage] 850 mg PO BID-W/MEALS tab 11/13/20 11/14/20 Rx Allergies Allergy/AdvReac Type Severity Reaction Status Date / Time bee pollen Allergy Severe Anaphylaxis Verified 11/14/20 15:19 haloperidol [From Haldol] Allergy Severe QUIT Verified 11/14/20 15:19 BREATHING haloperidol lactate Allergy Severe QUIT Verified 11/14/20 15:19 [From Haldol] BREATHING latex Allergy Severe RASH-THROAT Verified 11/14/20 15:19 CLOSES tramadol Allergy Severe Nausea & Verified 11/14/20 15:19 Vomiting murrieta Allergy Anaphylaxis Verified 11/14/20 15:19 coconut Allergy Anaphylaxis Verified 11/14/20 15:19 pineapple Allergy Anaphylaxis Verified 11/14/20 15:19 prednisone Allergy THROAT Verified 11/14/20 15:19 SWELLS spider venom Allergy Swelling Verified 11/14/20 15:19 Sulfa (Sulfonamide Allergy THROAT Verified 11/14/20 15:19 Antibiotics) SWELLS venom-wasp Allergy Swelling Verified 11/14/20 15:19 venom-wasp protein Allergy Swelling Verified 11/14/20 15:19 promethazine HCl AdvReac Severe Nausea & Verified 11/14/20 15:19 [From Phenergan] Vomiting amoxicillin AdvReac Nausea & Verified 11/14/20 15:19 Vomiting ANTS Allergy Mild Anaphylaxis Uncoded 11/06/20 22:34 Physical Exam Vitals: Vital Signs Temp Pulse Resp BP Pulse Ox 11/15/20 08:34 98.1 F 94 16 112/76 99 11/15/20 08:00 94 16 11/15/20 05:07 114/70 11/15/20 04:00 98 F 85 16 103/65 99 11/15/20 00:13 63 16 109/66 97 11/14/20 23:17 97.7 F 90 16 87/50 97 11/14/20 20:00 98.9 F 94 18 100/69 98 11/14/20 16:35 130 H 18 118/75 97 11/14/20 14:00 16 11/14/20 13:00 120 H 16 128/75 97 Intake and Output 11/14/20 11/15/20 11/15/20 22:59 06:59 14:59 Intake Total 240 240 Balance 240 240 Intake: Oral 240 240 Other: Voiding Method Toilet Toilet Toilet # Voids 1 1 # Bowel Movements 1 Weight 101.5 kg - Constitutional General appearance: Present: average body habitus, cooperative, no acute distress - EENT Eyes: Present: anicteric sclerae, EOMI, PERRLA, normal appearance ENT: Present: hearing grossly normal, normal oropharynx Ears: bilateral: normal - Neck Neck: Present: normal ROM. Absent: lymphadenopathy, rigidity, thyromegaly Carotids: negative: bruit present Thyroid: bilateral: normal size, negative: enlarged, nodule - Respiratory Respiratory: bilateral: CTA, negative: rales, rhonchi, wheezing - Cardiovascular Rhythm: regular Heart sounds: normal: S1, S2 Abnormal Heart Sounds: Absent: systolic murmur, diastolic murmur - Gastrointestinal General gastrointestinal: Present: normal bowel sounds, soft. Absent: dist ended, organomegaly, tenderness - Genitourinary Genitourinary Comment(s): deferred - Integumentary Integumentary: Present: normal turgor. Absent: jaundiced, rash, ulcer - Neurologic Neurologic: Present: CNII-XII intact. Absent: focal deficits - Musculoskeletal Musculoskeletal: Present: gait normal, strength equal bilaterally - Psychiatric Psychiatric: Present: A&O x's 3, appropriate affect, intact judgment & insight Results CBC & Chem 7: 11/15/20 12:39 11/15/20 12:39 Labs: Abnormal Lab Results - Last 24 Hours (Table) 11/14/20 11/14/20 11/14/20 Range/Units 17:03 17:19 20:04 Sodium 135 L (137-145) mmol/L Chloride 110 H (98-107) mmol/L Carbon Dioxide 14 L (22-30) mmol/L Glucose 127 H (74-99) mg/dL POC Glucose (mg/dL) 123 H 137 H (75-99) mg/dL Calcium 10.4 H (8.4-10.2) mg/dL 11/15/20 11/15/20 Range/Units 06:05 08:03 Sodium 135 L (137-145) mmol/L Chloride 112 H (98-107) mmol/L Carbon Dioxide 17 L (22-30) mmol/L Glucose 120 H (74-99) mg/dL POC Glucose (mg/dL) 129 H (75-99) mg/dL Calcium (8.4-10.2) mg/dL Thrombosis Risk Factor Assmnt - Choose All That Apply Any of the Below Risk Factors Present?: No Other Risk Factors: No Other congenital or acquired thrombophilia - If yes, enter type in comment: No Thrombosis Risk Factor Assessment Level: Very Low Risk Assessment and Plan Assessment: 1. Chest pain - We will admit patient to telemetry and monitor cardiac enzymes and EKG; patient had recent echocardiogram on 11/07/2020; we will hold off repeating echo at this time; cardiology is consulted 2. Hypotension; history of hypertension; possibly iatrogenic versus volume depletion - Patient takes prazosin 5 mg daily at bedtime, metoprolol 12.5 mg twice a day at home; we will hold antihypertensive therapy and continue with IV fluid hydration at a rate of 100 mL an hour; resume home medications once blood pressure is stable 3. Major depressive disorder recurrent severe without psychotic features -- Post Traumatic stress disorder - Borderline personality disorder by history -At this time patient DOES NOT meet criteria for inpatient psychiatric admission. -Would recommend the following medication changes/additions: continue with Zyprexa PRN for agitation, Seroquel 300 mg nightly + 25mg daily for mood stabilization/ insomnia. increase melatonin 6mg qhs for insomnia. Buspar 20mg tid for anxiety. -Continue with 1:1 sitter for safety however spoke with the nurse about allowing patient have her music and headphones as her music calms her. 4. Hyperlipidemia; Lipitor 40 mg by mouth daily at bedtime 5. Diabetes mellitus type 2; metformin 850 mg twice a day 6. COPD/asthma; continue albuterol sulfate inhaler 2 puffs 4 times a day along with Singulair 10 mg daily at bedtime DVT prophylaxis; SCDs CODE STATUS; full code
[2020-11-15 20:41] LABS: Glucose,Whole Blood 144 mg/dL (75-99)
[2020-11-15] MEDS ORDERED: MELATONIN 3 MG TABLET PO SCH (21:00)
[2020-11-15] MEDS: FENOFIBRATE 160 MG TAB PO SCH (21:13)
[2020-11-15] MEDS: ATORVASTATIN 40 MG TAB PO SCH (21:13)
[2020-11-15] MEDS: FAMOTIDINE 20 MG TAB PO SCH (21:13)
[2020-11-15] MEDS: MONTELUKAST 10 MG TAB PO SCH (21:14)
[2020-11-15] MEDS: QUEtiapine 100 MG TAB PO SCH (21:39)
[2020-11-16 03:51] VITALS: RESP 18
[2020-11-16] MEDS: OLANZapine 7.5 MG TAB PO PRN (05:36)
[2020-11-16] MEDS: diphenhydrAMINE 50 MG/ML 1 ML VIAL IVP PRN ×2 (05:37→13:02)
[2020-11-16] MEDS: KETOROLAC 15 MG/ML 1 ML VIAL IVP PRN ×2 (05:38→12:56)
[2020-11-16] MEDS: METOCLOPRAMIDE 5 MG/ML 2 ML VIAL IVP PRN ×2 (05:38→12:59)
[2020-11-16 06:21] LABS: Glucose,Whole Blood 163 mg/dL (75-99)
[2020-11-16] MEDS: INSULIN ASPART (NovoLOG) 100 UNIT/ML VIAL SQ SCH ×3 (06:48→17:15)
[2020-11-16] MEDS: metFORMIN 850 MG TAB PO SCH ×2 (06:52→17:27)
[2020-11-16] MEDS: PANTOPRAZOLE 40 MG TABLET PO SCH (06:52)
[2020-11-16] MEDS: HEPARIN SODIUM,PORCINE/PF 5,000 UNIT/0.5 ML SYRINGE SQ SCH (08:32)
[2020-11-16] MEDS: FAMOTIDINE 20 MG TAB PO SCH (08:32)
[2020-11-16] MEDS: SODIUM CHLORIDE 0.9% 1,000 ML IV SCH (08:32)
[2020-11-16] MEDS: QUEtiapine 25 MG TAB PO SCH (08:32)
[2020-11-16] MEDS: TOPIRAMATE 25 MG TAB PO SCH (08:32)
[2020-11-16] MEDS: busPIRone HCl 10 MG TAB PO SCH ×2 (08:32→17:27)
[2020-11-16] MEDS: METOPROLOL TARTRATE 12.5 MG TAB PO SCH (08:32)
[2020-11-16 09:46] LABS: Basophils % (A) 1 %; Eosinophils # (A) 0.2 k/uL (0-0.7); Eosinophils % (A) 3 %; Lymphocytes # (A) 2.7 k/uL (1.0-4.8); Lymphocytes % (A) 46 %; MCH 31.2 pg (25.0-35.0); MCHC 33.4 g/dL (31.0-37.0); MCV 93.3 fL (80.0-100.0); Mean Platelet Volume 8.1; Monocytes # (A) 0.3 k/uL (0-1.0); Monocytes % (A) 5 %; Neutrophils # (A) 2.5 k/uL (1.3-7.7); Neutrophils % (A) 43 %; Platelet Count 226 k/uL (150-450); RBC 4.18 m/uL (3.80-5.40); RDW 13.6 % (11.5-15.5); WBC 5.8 k/uL (3.8-10.6)
[2020-11-16 09:55] LABS: ALT 28 U/L (4-34); AST 42 U/L (14-36); African American GFR (CKD) >90 (>60 ml/min/1.73 sqM); Albumin 3.7 g/dL (3.5-5.0); Alkaline Phosphatase 63 U/L (38-126); Anion Gap 9 mmol/L; Blood Urea Nitrogen 11 mg/dL (7-17); Calcium 10.6 mg/dL (8.4-10.2); Carbon Dioxide 15 mmol/L (22-30); Chloride 113 mmol/L (98-107); Glucose 100 mg/dL (74-99); Non-African American GFR(CKD) >90 (>60 ml/min/1.73 sqM); Potassium 3.8 mmol/L (3.5-5.1); Sodium 137 mmol/L (137-145); Total Bilirubin 0.3 mg/dL (0.2-1.3); Total Protein 6.5 g/dL (6.3-8.2)
[2020-11-16 11:08] VITALS: TEMP 97.9
[2020-11-16 12:07] LABS: Glucose,Whole Blood 115 mg/dL (75-99)
--- NOTE | 2020-11-16 12:27 | P.CRDCN ---
History of Present Illness Consult date: 11/16/20 History of present illness: HISTORY OF PRESENT ILLNESS: This is a 30-year-old female with a past medical history significant for migraines, asthma, GERD, anxiety, depression, and PTSD. 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 We have been asked to see the patient in consultation for hypotension. The patient was apparently admitted to the mental health unit. She was found to be hypotensive with a blood pressure in the 80s. She was trans ferred to 3 S. for further evaluation. Patient's blood pressure is currently stable. Telemetry reveals sinus mechanism. She was started on metoprolol for tachycardia. She also takes Minipress at home which she is unsure as to why she takes this. Patient examined at the bedside. She currently denies chest pain or pressure. Denies shortness of breath. Denies dizziness or lightheadedness. Denies palpitations. EKG reveals sinus tachycardia with no signs of acute ischemia Laboratory data: WBC 5.8. Hemoglobin 13.0. Platelet count 226. Sodium 137. Potassium 3.8. BUN 11. Creatinine 0.87. Current home cardiac medications include Minipress 5 mg at night and metoprolol tartrate 12.5 mg twice a day Most recent echocardiogram obtained in October 2020 revealed ejection fraction 55- 60%. Trace mitral regurgitation. Trace tricuspid regurgitation. REVIEW OF SYSTEMS: At the time of my exam: CONSTITUTIONAL: Denies fever or chills. HEENT: Denies blurred vision, vision changes, or eye pain. Denies hemoptysis CARDIOVASCULAR: Denies chest pain. Denies orthopnea. Denies PND. Denies palpitations RESPIRATORY: Denies shortness of breath. GASTROINTESTINAL: Denies abdominal pain. Denies nausea or vomiting. HEMATOLOGIC: Denies bleeding disorders. GENITOURINARY: Denies any blood in urine. SKIN: Denies pruitis. Denies rash. PHYSICAL EXAM: VITAL SIGNS: Reviewed. GENERAL: Well-developed in no acute distress. HEENT: Head is normocephalic. Pupils are equal, round. Sclerae anicteric. Mucous membranes of the mouth are moist. Neck supple. No JVD or thyromegaly LUNGS: Respirations even and unlabored. Lungs essentially clear to auscultation bilaterally. HEART: Regular rate and rhythm. S1 and S2 heard. ABDOMEN: Soft. Nondistended. Nontender. EXTREMITIES: Normal range of motion. No clubbing or cyanosis. Peripheral pulses intact. No lower extremity edema NEUROLOGIC: Awake and alert. Oriented x 3. ASSESSMENT: Hypotension, resolved Sinus tachycardia, resolved Anxiety Depression PTSD Migraines Asthma PLAN: No need to repeat echocardiogram as this was performed in October 2020 Continue to monitor blood pressure Continue metoprolol May continue to hold Minipress No further recommendations from a cardiac standpoint. We will sign off. Please reconsult if needed. Nurse practitioner note has been reviewed by physician. Signing provider agrees with the documented findings, assessment, and plan of care. Past Medical History Past Medical History: Asthma, Diabetes Mellitus, GERD/Reflux Additional Past Medical History / Comment(s): migraines, degenerative disk disease, endometriosis, lupus, pancreatitis, covid vaccine moderna History of Any Multi-Drug Resistant Organisms: None Reported Past Surgical History: Orthopedic Surgery Additional Past Surgical History / Comment(s): laparoscopc surgery for endometriosis, cyst removed from left foot, EGD, Past Anesthesia/Blood Transfusion Reactions: Previous Problems w/ Anesthesia Additional Past Anesthesia/Blood Transfusion Reaction / Comment(s): hard to wake up for 48-72 hours after laparoscopic surgery-was in hosp. for 3 days Past Psychological History: Anxiety, Depression, PTSD Smoking Status: Never smoker, Vaper Past Alcohol Use History: None Reported Additional Past Alcohol Use History / Comment(s): pt states that she occasionally has a "glass or two" of vodka that she mixes with Mountain Dew. Past Drug Use History: Marijuana Additional Drug Use History / Comment(s): pt states that "I hit the vape constantly through the day." pt reports that she has a 100 mg vape pen that she refills 6 times per day. - Past Family History Mother Family Medical History: No Reported History Additional Family Medical History / Comment(s): hx migraines Father Family Medical History: Coronary Artery Disease (CAD), Hypertension Additional Family Medical History / Comment(s): ddd, alcoholism & drug use Medications and Allergies Home Medications Medication Instructions Recorded Confirmed Type Atorvastatin [Lipitor] 40 mg PO HS 30 Days tab 07/01/20 11/14/20 Rx ARIPiprazole [Abilify] 7.5 mg PO HS 08/13/20 11/14/20 History Prazosin [Minipress] 5 mg PO HS 08/13/20 11/14/20 History Fenofibrate Nanocrystallized 145 mg PO HS 11/06/20 11/14/20 History [Fenofibrate] Montelukast Sodium [Singulair] 10 mg PO HS 11/06/20 11/14/20 History Rimegepant Sulfate [Nurtec Odt] 75 mg PO DAILY PRN 11/06/20 11/14/20 History tiZANidine HCL 4 mg PO BID PRN 11/06/20 11/14/20 History Albuterol Sulfate [Proair Hfa] 1 - 2 puff INHALATION Q6HR PRN 11/11/20 11/14/20 History Buta/APAP/Caf/Cod 95-733-71-30 1 each PO Q8HR PRN cap 11/13/20 11/14/20 Rx [Fioricet w/Cod 73-300-12-30MG] Melatonin 3 mg PO HS tablet 11/13/20 11/14/20 Rx Metoprolol Tartrate [Lopressor] 12.5 mg PO BID tab 11/13/20 11/14/20 Rx Naproxen [Naprosyn] 375 mg PO BID PRN tab 11/13/20 11/14/20 Rx OLANZapine [ZyPREXA] 7.5 mg PO TID PRN tab 11/13/20 11/14/20 Rx Pantoprazole [Protonix] 40 mg PO AC-BRKFST tablet. 11/13/20 11/14/20 Rx QUEtiapine [SEROquel] 25 mg PO DAILY tab 11/13/20 11/14/20 Rx QUEtiapine [SEROquel] 300 mg PO HS tab 11/13/20 11/14/20 Rx SUMAtriptan succinate [Imitrex] 25 mg PO BID PRN tab 11/13/20 11/14/20 Rx Topiramate [Topamax] 50 mg PO BID tab 11/13/20 11/14/20 Rx busPIRone HCl [Buspar] 20 mg PO TID tab 11/13/20 11/14/20 Rx metFORMIN HCL [Glucophage] 850 mg PO BID-W/MEALS tab 11/13/20 11/14/20 Rx Allergies Allergy/AdvReac Type Severity Reaction Status Date / Time bee pollen Allergy Severe Anaphylaxis Verified 11/14/20 15:19 haloperidol [From Haldol] Allergy Severe QUIT Verified 11/14/20 15:19 BREATHING haloperidol lactate Allergy Severe QUIT Verified 11/14/20 15:19 [From Haldol] BREATHING latex Allergy Severe RASH-THROAT Verified 11/14/20 15:19 CLOSES tramadol Allergy Severe Nausea & Verified 11/14/20 15:19 Vomiting murrieta Allergy Anaphylaxis Verified 11/14/20 15:19 coconut Allergy Anaphylaxis Verified 11/14/20 15:19 pineapple Allergy Anaphylaxis Verified 11/14/20 15:19 prednisone Allergy THROAT Verified 11/14/20 15:19 SWELLS spider venom Allergy Swelling Verified 11/14/20 15:19 Sulfa (Sulfonamide Allergy THROAT Verified 11/14/20 15:19 Antibiotics) SWELLS venom-wasp Allergy Swelling Verified 11/14/20 15:19 venom-wasp protein Allergy Swelling Verified 11/14/20 15:19 promethazine HCl AdvReac Severe Nausea & Verified 11/14/20 15:19 [From Phenergan] Vomiting amoxicillin AdvReac Nausea & Verified 11/14/20 15:19 Vomiting ANTS Allergy Mild Anaphylaxis Uncoded 11/06/20 22:34 Physical Exam Vitals: Vital Signs Temp Pulse Resp BP Pulse Ox 11/16/20 11:08 97.9 F 93 18 122/75 97 11/16/20 08:00 98 F 99 18 130/94 96 11/16/20 03:48 97.5 F L 83 18 112/72 98 11/15/20 23:34 98.1 F 97 16 115/75 99 11/15/20 20:00 98.4 F 93 18 133/85 95 11/15/20 16:00 97.9 F 96 16 142/90 97 11/15/20 13:03 92 16 Intake and Output 11/15/20 11/16/20 11/16/20 22:59 06:59 14:59 Intake Total 240 240 Balance 240 240 Intake: Oral 240 240 Other: # Voids 2 2 Weight 102.6 kg Results 11/16/20 08:47 11/16/20 08:47 Cardiac Enzymes 11/15/20 11/15/20 11/15/20 Range/Units 12:39 12:39 16:30 AST 52 H (14-36) U/L Troponin I <0.012 <0.012 (0.000-0.034) ng/mL 11/16/20 Range/Units 08:47 AST 42 H (14-36) U/L Troponin I (0.000-0.034) ng/mL CBC 11/15/20 11/16/20 Range/Units 12:39 08:47 WBC 7.0 5.8 (3.8-10.6) k/uL RBC 4.13 4.18 (3.80-5.40) m/uL Hgb 13.5 13.0 (11.4-16.0) gm/dL Hct 39.1 39.0 (34.0-46.0) % Plt Count 273 226 (150-450) k/uL Comprehensive Metabolic Panel 11/15/20 11/16/20 Range/Units 12:39 08:47 Sodium 136 L 137 (137-145) mmol/L Potassium 4.4 3.8 (3.5-5.1) mmol/L Chloride 113 H 113 H (98-107) mmol/L Carbon Dioxide 13 L 15 L (22-30) mmol/L BUN 12 11 (7-17) mg/dL Creatinine 0.79 0.87 (0.52-1.04) mg/dL Glucose 131 H 100 H (74-99) mg/dL Calcium 10.4 H 10.6 H (8.4-10.2) mg/dL AST 52 H 42 H (14-36) U/L ALT 32 28 (4-34) U/L Alkaline Phosphatase 66 63 (38-126) U/L Total Protein 7.3 6.5 (6.3-8.2) g/dL Albumin 4.0 3.7 (3.5-5.0) g/dL Current Medications Generic Name Dose Route Start Last Admin Trade Name Freq PRN Reason Stop Dose Admin Acetam/Butalbital/Caffeine/Codeine 1 each 11/14/20 14:50 11/15/20 21:38 Buta/Apap/Caf/Cod 45-008-03-30 Cap PO 1 each Q8HR PRN Administration Headache Albuterol Sulfate 2.5 mg 11/14/20 14:50 Albuterol Nebulized 2.5 Mg/3 Ml INHALATION Q6HR PRN Shortness Of Breath Or Wheezing Atorvastatin Calcium 40 mg 11/14/20 21:00 11/15/20 21:13 Atorvastatin 40 Mg Tab PO 40 mg HS JIMENA Administration Buspirone HCl 20 mg 11/14/20 16:00 11/16/20 08:32 Buspirone Hcl 10 Mg Tab PO 20 mg TID JIMENA Administration Diphenhydramine HCl 25 mg 11/14/20 17:59 11/16/20 05:37 Diphenhydramine 50 Mg/Ml 1 Ml Vial IVP 25 mg Q6HR PRN Administration Allergy Symptoms Famotidine 20 mg 11/15/20 21:00 11/16/20 08:32 Famotidine 20 Mg Tab PO 20 mg BID JIMENA Administration Fenofibrate 160 mg 11/14/20 21:00 11/15/20 21:13 Fenofibrate 160 Mg Tab PO 160 mg HS JIMENA Administration Heparin Sodium (Porcine) 5,000 unit 11/15/20 09:00 11/16/20 08:32 Heparin Sodium,Porcine/Pf 5,000 Unit/0.5 Ml Syringe SQ 5,000 unit Q12HR JIMENA Administration Sodium Chloride 1,000 mls @ 75 mls/hr 11/14/20 17:00 11/16/20 08:32 Saline 0.9% IV 75 mls/hr .[id number] JIMENA Administration Insulin Aspart 0 unit 11/14/20 21:00 11/16/20 12:06 Insulin Aspart (Novolog) 100 Unit/Ml Vial SQ Not Given ACHS [facility] Protocol Ketorolac Tromethamine 15 mg 11/14/20 18:01 11/16/20 05:38 Ketorolac 15 Mg/Ml 1 Ml Vial IVP 11/17/20 17:58 15 mg Q6HR PRN Administration Moderate Pain Melatonin 6 mg 11/15/20 21:00 11/15/20 21:13 Melatonin 3 Mg Tablet PO 6 mg HS JIMENA Administration Metformin HCl 850 mg 11/14/20 17:30 11/16/20 06:52 Metformin 850 Mg Tab PO 850 mg BID-W/MEALS JIMENA Administration Metoclopramide HCl 5 mg 11/14/20 17:58 11/16/20 05:38 Metoclopramide 5 Mg/Ml 2 Ml Vial IVP 5 mg Q6HR PRN Administration Nausea And Vomiting Metoprolol Tartrate 12.5 mg 11/15/20 09:00 11/16/20 08:32 Metoprolol Tartrate 12.5 Mg Tab PO 12.5 mg DAILY JIMENA Administration Montelukast Sodium 10 mg 11/14/20 21:00 11/15/20 21:14 Montelukast 10 Mg Tab PO 10 mg HS JIMENA Administration Naproxen 375 mg 11/14/20 14:50 Naproxen 250 Mg Tab PO BID PRN Migraine Headache Patient's Own ( 75 mg 11/14/20 14:50 Rimegepant Sulfate [ PO Nurtec Odt] 75 Mg DAILY PRN Tab.Rapdis) Migraine Headache Olanzapine 7.5 mg 11/14/20 14:50 11/16/20 05:36 Olanzapine 7.5 Mg Tab PO 7.5 mg TID PRN Administration Agitation or Acute Anxiety Pantoprazole Sodium 40 mg 11/15/20 07:30 11/16/20 06:52 Pantoprazole 40 Mg Tablet PO 40 mg AC-BRKFST JIMENA Administration Quetiapine Fumarate 25 mg 11/15/20 09:00 11/16/20 08:32 Quetiapine 25 Mg Tab PO 25 mg DAILY JIMENA Administration Quetiapine Fumarate 300 mg 11/14/20 21:00 11/15/20 21:39 Quetiapine 100 Mg Tab PO 300 mg HS JIMENA Administration Sumatriptan Succinate 25 mg 11/14/20 14:50 Sumatriptan Succinate 25 Mg Tab PO BID PRN Migraine Headache Tizanidine HCl 4 mg 11/14/20 14:50 11/14/20 16:34 Tizanidine 4 Mg Tab PO 4 mg BID PRN Administration Pain Topiramate 50 mg 11/14/20 21:00 11/16/20 08:32 Topiramate 25 Mg Tab PO 50 mg BID JIMENA Administration Intake and Output 11/15/20 11/16/20 11/16/20 22:59 06:59 14:59 Intake Total 240 240 Balance 240 240 Intake: Oral 240 240 Other: # Voids 2 2 Weight 102.6 kg 11/16/20 08:47 11/16/20 08:47
[2020-11-16 17:27] VITALS: BP 137/91; PULSE 102
--- NOTE | 2020-12-15 09:54 | P.DS ---
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 Patient had multiple visits to the emergency room, each month and average of 3-6 visits for the last 2-3 years Patient went to see her neurologist Dr. Whelan whom she follows up for her migraine headache which she has since age 17 and low back pain for the last 8 years secondary to degenerative disc disease. She goes to Dr. Whelan office to get IV infusion whenever she has migraine headache severe enough, this is the fourth time when she went one day earlier and she got IV steroids, Toradol, Reglan and Benadryl in an hour after the infusion she had an episode of presyncope dizziness associated with funny feeling of the chest secondary to palpitation with no chest pain. Patient found to have severe migraine headache difficult to be controlled with medication because of this lumbar puncture was ordered showing mildly elevated opening intracranial pressure at 28 cm, and a closing pressure was 17 cm, after the procedure patient continued to have headache. Medication was adjusted by neurologist, including metoprolol to help with prophylaxis for migraine, Imitrex twice a day as needed Fioricet as needed, Topamax 50 mg twice a day which can be increased to 75 mg or 100 mg twice a day if she continued to complain of from severe headache Patient has been evaluated by psychiatrist for severe depression and started on Seroquel 100 mg nightly. Continue Abilify, doxepin, prazosin, and Klonopin. Also Benadryl 50 mg when necessary Per neurologist Consider as outpatient for her migraines can consider Botox injection or Aimovig but again will defer that decision to her neurologist as outpatient. Patient will need to follow up with her neurologist Dr. Whelan in 1-2 weeks after discharge Also patient was having problem with her significant other/ and her stepdaughter and now she left the house and was looking for fpc, she was severely depressed and withdrawn Most of the time. Because of this psychiatrist evaluated the patient and found her meets inpatient psychiatric criteria. Sitter At bedside all the time Other than that she denies chest pain or dyspnea. No coughing. No abdominal complaint. Change in urine or bowel habits. No fever Patient was cleared for discharge by neurologist Problems and management plan were discussed with the patient and he verbalized understanding and acceptance Patient was found stable and can be discharged home however he needs follow-up as an outpatient. Patient was instructed to follow up with PCP within one week and patient agrees Patient was instructed to follow up with a neurologist Dr. Whelan in 1-2 weeks after discharge and she agrees Patient currently is medically stable to be transferred to [facility]. psych unit, patient is agreeable to be transferred Plan - Discharge Summary Discharge Rx Participant: Yes New Discharge Prescriptions: New Metoprolol Tartrate [Lopressor] 12.5 mg PO DAILY #60 tab Continue Atorvastatin [Lipitor] 40 mg PO HS 30 Days tab ARIPiprazole [Abilify] 7.5 mg PO HS tiZANidine HCL 4 mg PO BID PRN PRN Reason: Pain Fenofibrate Nanocrystallized [Fenofibrate] 145 mg PO HS Albuterol Sulfate [Proair Hfa] 1 - 2 puff INHALATION Q6HR PRN PRN Reason: Shortness Of Breath Or Wheezing busPIRone HCl [Buspar] 20 mg PO TID tab Buta/APAP/Caf/Cod [id number] [Fioricet w/Cod 47-401-92-30MG] 1 each PO Q8HR PRN cap PRN Reason: Headache metFORMIN HCL [Glucophage] 850 mg PO BID-W/MEALS tab SUMAtriptan succinate [Imitrex] 25 mg PO BID PRN tab PRN Reason: Migraine Headache Pantoprazole [Protonix] 40 mg PO AC-BRKFST tablet. Topiramate [Topamax] 50 mg PO BID tab OLANZapine [ZyPREXA] 7.5 mg PO TID PRN tab PRN Reason: Agitation Or Acute Anxiety Rimegepant Sulfate [Nurtec Odt] 75 mg PO DAILY PRN PRN Reason: Migraine Headache Montelukast Sodium [Singulair] 10 mg PO HS Melatonin 3 mg PO HS tablet Naproxen [Naprosyn] 375 mg PO BID PRN tab PRN Reason: Migraine Headache QUEtiapine [SEROquel] 25 mg PO DAILY tab QUEtiapine [SEROquel] 300 mg PO HS tab Discontinued Prazosin [Minipress] 5 mg PO HS Metoprolol Tartrate [Lopressor] 12.5 mg PO BID tab Discharge Medication List Atorvastatin [Lipitor] 40 mg PO HS 30 Days tab 07/01/20 [Rx] ARIPiprazole [Abilify] 7.5 mg PO HS 08/13/20 [History] Fenofibrate Nanocrystallized [Fenofibrate] 145 mg PO HS 11/06/20 [History] Montelukast Sodium [Singulair] 10 mg PO HS 11/06/20 [History] Rimegepant Sulfate [Nurtec Odt] 75 mg PO DAILY PRN 11/06/20 [History] tiZANidine HCL 4 mg PO BID PRN 11/06/20 [History] Albuterol Sulfate [Proair Hfa] 1 - 2 puff INHALATION Q6HR PRN 11/11/20 [History] Buta/APAP/Caf/Cod [id number] [Fioricet w/Cod 20-846-34-30MG] 1 each PO Q8HR PRN cap 11/13/20 [Rx] Melatonin 3 mg PO HS tablet 11/13/20 [Rx] Naproxen [Naprosyn] 375 mg PO BID PRN tab 11/13/20 [Rx] OLANZapine [ZyPREXA] 7.5 mg PO TID PRN tab 11/13/20 [Rx] Pantoprazole [Protonix] 40 mg PO AC-BRKFST tablet. 11/13/20 [Rx] QUEtiapine [SEROquel] 25 mg PO DAILY tab 11/13/20 [Rx] QUEtiapine [SEROquel] 300 mg PO HS tab 11/13/20 [Rx] SUMAtriptan succinate [Imitrex] 25 mg PO BID PRN tab 11/13/20 [Rx] Topiramate [Topamax] 50 mg PO BID tab 11/13/20 [Rx] busPIRone HCl [Buspar] 20 mg PO TID tab 11/13/20 [Rx] metFORMIN HCL [Glucophage] 850 mg PO BID-W/MEALS tab 11/13/20 [Rx] Metoprolol Tartrate [Lopressor] 12.5 mg PO DAILY #60 tab 11/16/20 [Rx] Patient Instructions/Handouts: Chest Pain (DC), Hypotension (DC), Suicide Prevention (DC) Discharge Disposition: HOME SELF-CARE
== END 2020-11-16 18:52 | disposition home or self-care (01) ==
LOC: INTOOBSV 13:57 → 3SCARD 13:57 → UNDODISIN 11-16 18:52
PROVIDERS: ADMIT Internal Medicine; ATTEND Internal Medicine
DX: I95.9 Hypotension, unspecified (principal); G43.909 Migraine, unspecified, not intractable, without status migrainosus; F33.2 Major depressive disorder, recurrent severe without psychotic features; R07.9 Chest pain, unspecified; E11.9 Type 2 diabetes mellitus without complications; F43.10 Post-traumatic stress disorder, unspecified; F60.3 Borderline personality disorder; J44.9 Chronic obstructive pulmonary disease, unspecified; E78.5 Hyperlipidemia, unspecified; I10 Essential (primary) hypertension; K21.9 Gastro-esophageal reflux disease without esophagitis; M54.5 Low back pain; N80.9 Endometriosis, unspecified; F17.290 Nicotine dependence, other tobacco product, uncomplicated; Z79.84 Long term (current) use of oral hypoglycemic drugs; Z79.899 Other long term (current) drug therapy; Z87.19 Personal history of other diseases of the digestive system; Z62.810 Personal history of physical and sexual abuse in childhood; Z87.440 Personal history of urinary (tract) infections; Z98.890 Other specified postprocedural states; Z88.1 Allergy status to other antibiotic agents; Z91.030 Bee allergy status; Z91.040 Latex allergy status; Z88.5 Allergy status to narcotic agent; Z88.2 Allergy status to sulfonamides; Z88.8 Allergy status to other drugs, medicaments and biological substances
CPT/HCPCS: 96376 ×2; 96361; 96372 ×2; 96374; 96375 ×2; 80053 ×2; 80048 ×2; 84443; 82533; 83605; 84484; 85025 ×2; 85027; G0378 ×3; G0379; J1200 ×3; J2765 ×3; J1885 ×3; J1644 ×2

== ENCOUNTER 2020-11-21 10:09 | Emergency (ER) | payer OTHER ==
[2020-11-21 10:25] VITALS: RESP 18; TEMP 98.3
--- NOTE | 2020-11-21 10:53 | ED ---
General Adult HPI - General Chief complaint: Headache Stated complaint: Headache Time Seen by Provider: 11/21/20 10:34 Source: patient Mode of arrival: wheelchair Limitations: no limitations - History of Present Illness Initial comments: 30-year-old female with a past medical history of migraines presents to the emergency room for chief, and of headache. Patient states she has had a headache for 3 days. States it is a pressure in her head. States she is sensitive to light. Patient went to her doctor yesterday and got a Toradol shot and Fioricet but it did not seem to help. Patient was recently admitted for similar complaints and had an extensive workup which was negative although potentially some mildly increased opening pressure on LP. Patient denying any visual changes today aside from light sensitivity.Patient has no other complaints at this time including shortness of breath, chest pain, abdominal pain, nausea or vomiting, or visual changes. - Related Data Home Medications Medication Instructions Recorded Confirmed ARIPiprazole [Abilify] 7.5 mg PO HS 08/13/20 11/14/20 Fenofibrate Nanocrystallized 145 mg PO HS 11/06/20 11/14/20 [Fenofibrate] Montelukast Sodium [Singulair] 10 mg PO HS 11/06/20 11/14/20 Rimegepant Sulfate [Nurtec Odt] 75 mg PO DAILY PRN 11/06/20 11/14/20 tiZANidine HCL 4 mg PO BID PRN 11/06/20 11/14/20 Albuterol Sulfate [Proair Hfa] 1 - 2 puff INHALATION Q6HR PRN 11/11/20 11/14/20 Previous Rx's Medication Instructions Recorded Atorvastatin [Lipitor] 40 mg PO HS 30 Days tab 07/01/20 Buta/APAP/Caf/Cod 49-292-42-30 1 each PO Q8HR PRN cap 11/13/20 [Fioricet w/Cod 10-308-01-30MG] Melatonin 3 mg PO HS tablet 11/13/20 Naproxen [Naprosyn] 375 mg PO BID PRN tab 11/13/20 OLANZapine [ZyPREXA] 7.5 mg PO TID PRN tab 11/13/20 Pantoprazole [Protonix] 40 mg PO AC-BRKFST tablet. 11/13/20 QUEtiapine [SEROquel] 25 mg PO DAILY tab 11/13/20 QUEtiapine [SEROquel] 300 mg PO HS tab 11/13/20 SUMAtriptan succinate [Imitrex] 25 mg PO BID PRN tab 11/13/20 Topiramate [Topamax] 50 mg PO BID tab 11/13/20 busPIRone HCl [Buspar] 20 mg PO TID tab 11/13/20 metFORMIN HCL [Glucophage] 850 mg PO BID-W/MEALS tab 11/13/20 Metoprolol Tartrate [Lopressor] 12.5 mg PO DAILY #60 tab 11/16/20 Allergies Allergy/AdvReac Type Severity Reaction Status Date / Time bee pollen Allergy Severe Anaphylaxis Verified 11/21/20 10:26 haloperidol [From Haldol] Allergy Severe QUIT Verified 11/21/20 10:26 BREATHING haloperidol lactate Allergy Severe QUIT Verified 11/21/20 10:26 [From Haldol] BREATHING latex Allergy Severe RASH-THROAT Verified 11/21/20 10:26 CLOSES tramadol Allergy Severe Nausea & Verified 11/21/20 10:26 Vomiting murrieta Allergy Anaphylaxis Verified 11/21/20 10:26 coconut Allergy Anaphylaxis Verified 11/21/20 10:26 pineapple Allergy Anaphylaxis Verified 11/21/20 10:26 prednisone Allergy THROAT Verified 11/21/20 10:26 SWELLS spider venom Allergy Swelling Verified 11/21/20 10:26 Sulfa (Sulfonamide Allergy THROAT Verified 11/21/20 10:26 Antibiotics) SWELLS venom-wasp Allergy Swelling Verified 11/21/20 10:26 venom-wasp protein Allergy Swelling Verified 11/21/20 10:26 promethazine HCl AdvReac Severe Nausea & Verified 11/21/20 10:26 [From Phenergan] Vomiting amoxicillin AdvReac Nausea & Verified 11/21/20 10:26 Vomiting ANTS Allergy Mild Anaphylaxis Uncoded 11/21/20 10:26 Review of Systems ROS Statement: Those systems with pertinent positive or pertinent negative responses have been documented in the HPI. ROS Other: All systems not noted in ROS Statement are negative. Past Medical History Past Medical History: Asthma, Diabetes Mellitus, GERD/Reflux Additional Past Medical History / Comment(s): migraines, degenerative disk disease, endometriosis, lupus, pancreatitis, covid vaccine moderna History of Any Multi-Drug Resistant Organisms: None Reported Past Surgical History: Orthopedic Surgery Additional Past Surgical History / Comment(s): laparoscopc surgery for endometriosis, cyst removed from left foot, EGD, Past Anesthesia/Blood Transfusion Reactions: Previous Problems w/ Anesthesia Additional Past Anesthesia/Blood Transfusion Reaction / Comment(s): hard to wake up for 48-72 hours after laparoscopic surgery-was in hosp. for 3 days Past Psychological History: Anxiety, Depression, PTSD Smoking Status: Vaper Past Alcohol Use History: None Reported Past Drug Use History: Marijuana - Past Family History Mother Family Medical History: No Reported History Additional Family Medical History / Comment(s): hx migraines Father Family Medical History: Coronary Artery Disease (CAD), Hypertension Additional Family Medical History / Comment(s): ddd, alcoholism & drug use General Exam Limitations: no limitations General appearance: alert, in no apparent distress Head exam: Present: atraumatic Eye exam: Present: normal appearance, PERRL, EOMI, other (Patient wearing sunglasses). Absent: scleral icterus, conjunctival injection ENT exam: Present: normal exam, mucous membranes moist Neck exam: Present: normal inspection. Absent: tenderness Respiratory exam: Present: normal lung sounds bilaterally. Absent: respiratory distress, wheezes Cardiovascular Exam: Present: regular rate, normal rhythm, normal heart sounds GI/Abdominal exam: Present: soft, normal bowel sounds. Absent: distended, tenderness Neurological exam: Present: alert, oriented X3, normal gait Psychiatric exam: Present: normal affect, normal mood Course Vital Signs 11/21/20 10:23 Temperature 98.3 F Pulse Rate 98 Respiratory 18 Rate Blood Pressure 116/81 O2 Sat by Pulse 99 Oximetry Medical Decision Making - Medical Decision Making Patient presents for her normal migraine symptoms. Complain of pressure in her head and light sensitivity. No focal neurologic deficits. Patient had a normal brain MRI, CT/CTA of the head and neck, and normal CT venogram of the brain one week ago. Patient was given migraine cocktail and had significant improvement in symptoms. Patient will be discharged home to follow up with primary care. Disposition Clinical Impression: Migraine headache Disposition: HOME SELF-CARE Condition: Good Instructions (If sedation given, give patient instructions): Acute Headache (ED) Additional Instructions: Please follow-up with your doctor in one to 2 days. Continue your migraine medications. Return to the emergency room for any worsening symptoms. Is patient prescribed a controlled substance at d/c from ED?: No Referrals: Jorje Mayes MD [Primary Care Provider] - 1-2 days Time of Disposition: 12:39
[2020-11-21] MEDS ORDERED: METOCLOPRAMIDE 5 MG/ML 2 ML VIAL IVP STA (10:59)
[2020-11-21] MEDS ORDERED: SODIUM CHLORIDE 0.9% 1,000 ML IV STA (10:59)
[2020-11-21] MEDS ORDERED: KETOROLAC 15 MG/ML 1 ML VIAL IVP STA (10:59)
[2020-11-21] MEDS ORDERED: diphenhydrAMINE 50 MG/ML 1 ML VIAL IVP STA (11:00)
[2020-11-21] MEDS ORDERED: HYDROmorphone 0.5 MG/0.5 ML SYRINGE IVP STA (11:59)
[2020-11-21 13:05] VITALS: BP 106/71; PULSE 89
== END 2020-11-21 13:04 | disposition home or self-care (01) ==
LOC: EC 10:09
DX: G43.909 Migraine, unspecified, not intractable, without status migrainosus (principal); E11.9 Type 2 diabetes mellitus without complications; K21.9 Gastro-esophageal reflux disease without esophagitis; F32.9 Major depressive disorder, single episode, unspecified; F41.9 Anxiety disorder, unspecified; J45.909 Unspecified asthma, uncomplicated; F17.290 Nicotine dependence, other tobacco product, uncomplicated; F12.90 Cannabis use, unspecified, uncomplicated; Z79.84 Long term (current) use of oral hypoglycemic drugs; Z79.51 Long term (current) use of inhaled steroids; Z79.1 Long term (current) use of non-steroidal anti-inflammatories (NSAID); Z88.0 Allergy status to penicillin; Z88.2 Allergy status to sulfonamides; Z88.5 Allergy status to narcotic agent; Z88.8 Allergy status to other drugs, medicaments and biological substances; Z82.49 Family history of ischemic heart disease and other diseases of the circulatory system; Z91.040 Latex allergy status
CPT/HCPCS: 96374; 96375 ×3; 96361; 99284; J1200; J2765; J1885; J1170

== ENCOUNTER 2020-11-24 13:46 | Emergency (ER) | payer OTHER ==
[2020-11-24] MEDS ORDERED: SODIUM CHLORIDE 0.9% 1,000 ML IV STA (14:08)
--- NOTE | 2020-11-24 14:14 | ED ---
Chest Pain HPI - General Chief Complaint: Chest Pain Stated Complaint: Chest pain and migraine Source: patient, RN notes reviewed, old records reviewed Mode of arrival: ambulatory Limitations: no limitations - History of Present Illness Initial Comments: 30-year-old white female patient, alert and oriented 4, presents to the emergency room with a headache for 2 days which she states is consistent with her migraine headaches. Also chest pain that started today at 5:30 this morning. She was at rest when the chest pain started, she describes it as a pressure and heaviness. She's not had this type of chest pain before. She describes the pain a 9 out of 10 but denies any shortness of breath, fevers or cough or nausea or vomiting. She does vape. -: hour(s) (7) Onset: during rest Pain Location: substernal Quality: heaviness Consistency: constant Improves With: nothing Worsens With: nothing Treatments Prior to Arrival: none - Related Data Home Medications Medication Instructions Recorded Confirmed ARIPiprazole [Abilify] 7.5 mg PO HS 08/13/20 11/14/20 Fenofibrate Nanocrystallized 145 mg PO HS 11/06/20 11/14/20 [Fenofibrate] Montelukast Sodium [Singulair] 10 mg PO HS 11/06/20 11/14/20 Rimegepant Sulfate [Nurtec Odt] 75 mg PO DAILY PRN 11/06/20 11/14/20 tiZANidine HCL 4 mg PO BID PRN 11/06/20 11/14/20 Albuterol Sulfate [Proair Hfa] 1 - 2 puff INHALATION Q6HR PRN 11/11/20 11/14/20 Previous Rx's Medication Instructions Recorded Atorvastatin [Lipitor] 40 mg PO HS 30 Days tab 07/01/20 Buta/APAP/Caf/Cod [id number] 1 each PO Q8HR PRN cap 11/13/20 [Fioricet w/Cod 59-943-60-30MG] Melatonin 3 mg PO HS tablet 11/13/20 Naproxen [Naprosyn] 375 mg PO BID PRN tab 11/13/20 OLANZapine [ZyPREXA] 7.5 mg PO TID PRN tab 11/13/20 Pantoprazole [Protonix] 40 mg PO AC-BRKFST tablet. 11/13/20 QUEtiapine [SEROquel] 25 mg PO DAILY tab 11/13/20 QUEtiapine [SEROquel] 300 mg PO HS tab 11/13/20 SUMAtriptan succinate [Imitrex] 25 mg PO BID PRN tab 11/13/20 Topiramate [Topamax] 50 mg PO BID tab 11/13/20 busPIRone HCl [Buspar] 20 mg PO TID tab 11/13/20 metFORMIN HCL [Glucophage] 850 mg PO BID-W/MEALS tab 11/13/20 Metoprolol Tartrate [Lopressor] 12.5 mg PO DAILY #60 tab 11/16/20 Allergies Allergy/AdvReac Type Severity Reaction Status Date / Time bee pollen Allergy Severe Anaphylaxis Verified 11/24/20 13:55 haloperidol [From Haldol] Allergy Severe QUIT Verified 11/24/20 13:55 BREATHING haloperidol lactate Allergy Severe QUIT Verified 11/24/20 13:55 [From Haldol] BREATHING latex Allergy Severe RASH-THROAT Verified 11/24/20 13:55 CLOSES tramadol Allergy Severe Nausea & Verified 11/24/20 13:55 Vomiting murrieta Allergy Anaphylaxis Verified 11/24/20 13:55 coconut Allergy Anaphylaxis Verified 11/24/20 13:55 pineapple Allergy Anaphylaxis Verified 11/24/20 13:55 prednisone Allergy THROAT Verified 11/24/20 13:55 SWELLS spider venom Allergy Swelling Verified 11/24/20 13:55 Sulfa (Sulfonamide Allergy THROAT Verified 11/24/20 13:55 Antibiotics) SWELLS venom-wasp Allergy Swelling Verified 11/24/20 13:55 venom-wasp protein Allergy Swelling Verified 11/24/20 13:55 promethazine HCl AdvReac Severe Nausea & Verified 11/24/20 13:55 [From Phenergan] Vomiting amoxicillin AdvReac Nausea & Verified 11/24/20 13:55 Vomiting ANTS Allergy Mild Anaphylaxis Uncoded 11/24/20 13:55 Review of Systems ROS Statement: Those systems with pertinent positive or pertinent negative responses have been documented in the HPI. ROS Other: All systems not noted in ROS Statement are negative. EKG Findings - EKG Results: EKG: sinus rhythm, not changed from: (11/16/20) EKG shows: tachycardia (Ventricular rate of 118, CO interval of 0.134, QRS of 0.78, QTC 0.448) Past Medical History Past Medical History: Asthma, Diabetes Mellitus, GERD/Reflux Additional Past Medical History / Comment(s): migraines, degenerative disk disease, endometriosis, lupus, pancreatitis, covid vaccine moderna History of Any Multi-Drug Resistant Organisms: None Reported Past Surgical History: Orthopedic Surgery Additional Past Surgical History / Comment(s): laparoscopc surgery for endometriosis, cyst removed from left foot, EGD, Past Anesthesia/Blood Transfusion Reactions: Previous Problems w/ Anesthesia Additional Past Anesthesia/Blood Transfusion Reaction / Comment(s): hard to wake up for 48-72 hours after laparoscopic surgery-was in hosp. for 3 days Past Psychological History: Anxiety, Depression, PTSD Smoking Status: Vaper Past Alcohol Use History: None Reported Past Drug Use History: Marijuana - Past Family History Mother Family Medical History: No Reported History Additional Family Medical History / Comment(s): hx migraines Father Family Medical History: Coronary Artery Disease (CAD), Hypertension Additional Family Medical History / Comment(s): ddd, alcoholism & drug use General Exam Limitations: no limitations General appearance: alert, in no apparent distress Head exam: Present: atraumatic, normocephalic, normal inspection Eye exam: Present: normal appearance, PERRL, EOMI. Absent: scleral icterus, conjunctival injection, periorbital swelling Pupils: Present: normal accommodation ENT exam: Present: normal exam, normal oropharynx, mucous membranes moist Neck exam: Present: normal inspection, full ROM. Absent: tenderness, meningismus, lymphadenopathy, thyromegaly Respiratory exam: Present: normal lung sounds bilaterally. Absent: respiratory distress, wheezes, rales, rhonchi, stridor, chest wall tenderness, accessory muscle use, decreased breath sounds Cardiovascular Exam: Present: tachycardia. Absent: JVD GI/Abdominal exam: Present: soft, normal bowel sounds. Absent: distended, tenderness, guarding, rebound, rigid Extremities exam: Present: normal inspection, full ROM, normal capillary refill. Absent: tenderness, pedal edema, joint swelling, calf tenderness Back exam: Present: normal inspection, full ROM. Absent: tenderness, CVA tenderness (R), CVA tenderness (L), muscle spasm, paraspinal tenderness, vertebral tenderness, rash noted Neurological exam: Present: alert, oriented X3, CN II-XII intact Psychiatric exam: Present: flat affect Skin exam: Present: warm, dry, intact, normal color. Absent: rash, cyanosis, diaphoretic, erythema, petechiae, pallor, mottled Course Vital Signs 11/24/20 11/24/20 11/24/20 13:53 15:00 15:44 Temperature 98.4 F Pulse Rate 133 H 101 H Pulse Rate [ 123 H Right Supine Radial] Respiratory 20 16 Rate Blood Pressure 116/82 136/92 O2 Sat by Pulse 99 99 Oximetry 11/24/20 11/24/20 16:23 17:14 Temperature 97.5 F L Pulse Rate 88 98 Pulse Rate [ Right Supine Radial] Respiratory 20 16 Rate Blood Pressure 123/74 128/78 O2 Sat by Pulse 99 99 Oximetry Chest Pain MDM - MDM Chest x-ray shows a normal mediastinum lungs are clear. UA is negative for infection. WBC count is 5.5 and hemoglobin and hematocrit is 12 and 32 respectively. Potassium is 4.8 glucose is elevated at 191. Troponin is negative at 0.012, EKG shows no acute changes. Her HEART score is 1 for current smoker. I have a low suspicion for acute coronary syndrome. She has no family history of cardiac disease. Patient states that her chest pain is better at this time. Heart rate is down to 89 on the radiographer cardiac catheterization. She does continue to state she has a migraine headache. Patient was given Toradol, IV fluids, Benadryl and Tylenol. She'll be discharged home and instructed to follow-up with her primary care doctor. Case discussed with Dr. Mariana GOYAL Score Age > 65: (0) No 3 or more CAD Risk Factors: (0) No Known CAD with more than 50% Stenosis: (0) No Aspirin use within the Past 7 Days: (0) No Elevated Cardiac Markers: (0) No ST Deviation Greater than 0.5mm: (0) No Disposition Clinical Impression: Migraine headache, Chest pain Disposition: HOME SELF-CARE Condition: Fair Instructions (If sedation given, give patient instructions): Chest Pain (ED), Migraine Headache (ED) Additional Instructions: Follow-up with your primary care doctor next week. Continue her migraine medications. Is patient prescribed a controlled substance at d/c from ED?: No Referrals: Jorje Mayes MD [Primary Care Provider] - 1-2 days Time of Disposition: 16:49
[2020-11-24 14:50] LABS: ALT 25 U/L (4-34); AST 42 U/L (14-36); African American GFR (CKD) >90 (>60 ml/min/1.73 sqM); Alkaline Phosphatase 51 U/L (38-126); Anion Gap 8 mmol/L; Blood Urea Nitrogen 12 mg/dL (7-17); Calcium 10.3 mg/dL (8.4-10.2); Carbon Dioxide 21 mmol/L (22-30); Chloride 107 mmol/L (98-107); Glucose 191 mg/dL (74-99); Magnesium 1.8 mg/dL (1.6-2.3); Non-African American GFR(CKD) >90 (>60 ml/min/1.73 sqM); Sodium 136 mmol/L (137-145); Total Bilirubin 0.6 mg/dL (0.2-1.3); Total Protein 6.9 g/dL (6.3-8.2)
[2020-11-24 15:01] LABS: Appearance,Urine Cloudy (Clear); Bacteria,Urine Rare /hpf; Bilirubin,Urine Negative (Negative); Blood,Urine Trace (Negative); Color,Urine Yellow; Glucose,Urine (UA) 1+ (Negative); Ketones,Urine Negative (Negative); Leukocyte Esterase,Urine Negative (Negative); Mucus,Urine Rare /hpf; Nitrite,Urine Negative (Negative); Protein,Urine Negative (Negative); RBC,Urine <1 /hpf (0-5); Specific Gravity,Urine 1.018 (1.001-1.035); Squamous Epithelial Cell,Urine 3 /hpf (0-4); Urobilinogen,Urine <2.0 mg/dL (<2.0); WBC,Urine 1 /hpf (0-5)
[2020-11-24 15:19] LABS: Potassium 4.8 mmol/L (3.5-5.1)
[2020-11-24 15:30] LABS: Basophils % (A) 0 %; Eosinophils # (A) 0.1 k/uL (0-0.7); Eosinophils % (A) 2 %; HCT 33.8 % (34.0-46.0); Lymphocytes # (A) 2.1 k/uL (1.0-4.8); Lymphocytes % (A) 39 %; MCH 32.9 pg (25.0-35.0); MCHC 35.7 g/dL (31.0-37.0); MCV 92.3 fL (80.0-100.0); Mean Platelet Volume 7.8; Monocytes # (A) 0.2 k/uL (0-1.0); Monocytes % (A) 4 %; Neutrophils # (A) 2.9 k/uL (1.3-7.7); Neutrophils % (A) 52 %; Platelet Count 218 k/uL (150-450); RBC 3.66 m/uL (3.80-5.40); RDW 14.3 % (11.5-15.5); WBC 5.5 k/uL (3.8-10.6)
[2020-11-24] MEDS ORDERED: KETOROLAC 15 MG/ML 1 ML VIAL IVP STA (15:36)
[2020-11-24] MEDS ORDERED: ACETAMINOPHEN TAB 325 MG TAB PO STA (15:37)
--- NOTE | 2020-11-24 15:52 | XR ---
EXAMINATION TYPE: XR chest 2V DATE OF EXAM: 11/24/2020 COMPARISON: 11/10/2020 HISTORY: Chest pain TECHNIQUE: 2 view FINDINGS: Heart and mediastinum are normal. Lungs are clear. Diaphragm is normal. Bony thorax is inta ct. There are chest leads. IMPRESSION: Normal chest. No change.
[2020-11-24] MEDS ORDERED: diphenhydrAMINE 50 MG/ML 1 ML VIAL IVP STA (16:48)
[2020-11-24 17:16] VITALS: BP 128/78; PULSE 98; RESP 16; TEMP 97.5
== END 2020-11-24 17:14 | disposition home or self-care (01) ==
LOC: EC 13:46
DX: R07.9 Chest pain, unspecified (principal); G43.909 Migraine, unspecified, not intractable, without status migrainosus; J45.909 Unspecified asthma, uncomplicated; E11.9 Type 2 diabetes mellitus without complications; K21.9 Gastro-esophageal reflux disease without esophagitis; F41.9 Anxiety disorder, unspecified; F32.9 Major depressive disorder, single episode, unspecified; F43.12 Post-traumatic stress disorder, chronic; F17.290 Nicotine dependence, other tobacco product, uncomplicated; F12.90 Cannabis use, unspecified, uncomplicated; Z79.84 Long term (current) use of oral hypoglycemic drugs; Z91.040 Latex allergy status; Z88.1 Allergy status to other antibiotic agents; Z88.0 Allergy status to penicillin; Z88.2 Allergy status to sulfonamides; Z88.5 Allergy status to narcotic agent
CPT/HCPCS: 99285; 96374; 96375; 96361; 36415; 93005; 80053; 83735; 84484; 85025; 81001; 71046; J1200; J1885

== ENCOUNTER 2020-11-27 10:39 | Emergency (ER) | payer OTHER ==
[2020-11-27] MEDS ORDERED: SODIUM CHLORIDE 0.9% 1,000 ML IV STA (10:47)
--- NOTE | 2020-11-27 11:51 | XR ---
EXAMINATION TYPE: XR chest 2V DATE OF EXAM: 11/27/2020 COMPARISON: 11/24/2020 HISTORY: Chest pain TECHNIQUE: Frontal and lateral views of the chest are obtained. FINDINGS: There is no focal air space opacity. No evidence for pneumothorax. No pleural effusion. The cardiac silhouette size is within normal limits. The osseous structures are grossly intact. IMPRESSION: 1. No acute cardiopulmonary process.
--- NOTE | 2020-11-27 11:58 | ED ---
Anxiety HPI - General Chief Complaint: Anxiety Stated Complaint: palpitations, chest discomfort Time Seen by Provider: 11/27/20 10:42 Source: patient, EMS Mode of arrival: EMS - History of Present Illness Initial Comments: Patient is a 30-year-old female that presents to emergency department complaining of chest discomfort and palpitations after recently starting a new medication. Patient frequency emergency room for several complaints. She is otherwise a well-appearing 30-year-old female in no apparent distress or pain while laying in bed during the exam and interview. She noted that the pain is not reproducible he just feels like her heart pounding outside of her chest. She denied any shortness of breath headache nausea vomiting diarrhea constipation fever fatigue chills. - Related Data Home Medications: Home Medications Medication Instructions Recorded Confirmed ARIPiprazole [Abilify] 7.5 mg PO HS 08/13/20 11/14/20 Fenofibrate Nanocrystallized 145 mg PO HS 11/06/20 11/14/20 [Fenofibrate] Montelukast Sodium [Singulair] 10 mg PO HS 11/06/20 11/14/20 Rimegepant Sulfate [Nurtec Odt] 75 mg PO DAILY PRN 11/06/20 11/14/20 tiZANidine HCL 4 mg PO BID PRN 11/06/20 11/14/20 Albuterol Sulfate [Proair Hfa] 1 - 2 puff INHALATION Q6HR PRN 11/11/20 11/14/20 Previous Rx's Medication Instructions Recorded Atorvastatin [Lipitor] 40 mg PO HS 30 Days tab 07/01/20 Buta/APAP/Caf/Cod 19-907-29-30 1 each PO Q8HR PRN cap 11/13/20 [Fioricet w/Cod 50-518-64-30MG] Melatonin 3 mg PO HS tablet 11/13/20 Naproxen [Naprosyn] 375 mg PO BID PRN tab 11/13/20 OLANZapine [ZyPREXA] 7.5 mg PO TID PRN tab 11/13/20 Pantoprazole [Protonix] 40 mg PO AC-BRKFST tablet. 11/13/20 QUEtiapine [SEROquel] 25 mg PO DAILY tab 11/13/20 QUEtiapine [SEROquel] 300 mg PO HS tab 11/13/20 SUMAtriptan succinate [Imitrex] 25 mg PO BID PRN tab 11/13/20 Topiramate [Topamax] 50 mg PO BID tab 11/13/20 busPIRone HCl [Buspar] 20 mg PO TID tab 11/13/20 metFORMIN HCL [Glucophage] 850 mg PO BID-W/MEALS tab 11/13/20 Metoprolol Tartrate [Lopressor] 12.5 mg PO DAILY #60 tab 11/16/20 Allergies/Adverse Reactions: Allergies Allergy/AdvReac Type Severity Reaction Status Date / Time bee pollen Allergy Severe Anaphylaxis Verified 11/27/20 11:00 haloperidol [From Haldol] Allergy Severe QUIT Verified 11/27/20 11:00 BREATHING haloperidol lactate Allergy Severe QUIT Verified 11/27/20 11:00 [From Haldol] BREATHING latex Allergy Severe RASH-THROAT Verified 11/27/20 11:00 CLOSES tramadol Allergy Severe Nausea & Verified 11/27/20 11:00 Vomiting murrieta Allergy Anaphylaxis Verified 11/27/20 11:00 coconut Allergy Anaphylaxis Verified 11/27/20 11:00 pineapple Allergy Anaphylaxis Verified 11/27/20 11:00 prednisone Allergy THROAT Verified 11/27/20 11:00 SWELLS spider venom Allergy Swelling Verified 11/27/20 11:00 Sulfa (Sulfonamide Allergy THROAT Verified 11/27/20 11:00 Antibiotics) SWELLS venom-wasp Allergy Swelling Verified 11/27/20 11:00 venom-wasp protein Allergy Swelling Verified 11/27/20 11:00 promethazine HCl AdvReac Severe Nausea & Verified 11/27/20 11:00 [From Phenergan] Vomiting amoxicillin AdvReac Nausea & Verified 11/27/20 11:00 Vomiting ANTS Allergy Mild Anaphylaxis Uncoded 11/24/20 13:55 Review of Systems ROS Statement: Those systems with pertinent positive or pertinent negative responses have been documented in the HPI. ROS Other: All systems not noted in ROS Statement are negative. Past Medical History Past Medical History: Asthma, Diabetes Mellitus, GERD/Reflux Additional Past Medical History / Comment(s): migraines, degenerative disk disease, endometriosis, lupus, pancreatitis, covid vaccine moderna History of Any Multi-Drug Resistant Organisms: None Reported Past Surgical History: Orthopedic Surgery Additional Past Surgical History / Comment(s): laparoscopc surgery for endometriosis, cyst removed from left foot, EGD, Past Anesthesia/Blood Transfusion Reactions: Previous Problems w/ Anesthesia Additional Past Anesthesia/Blood Transfusion Reaction / Comment(s): hard to wake up for 48-72 hours after laparoscopic surgery-was in hosp. for 3 days Past Psychological History: Anxiety, Depression, PTSD Smoking Status: Vaper Past Alcohol Use History: None Reported Past Drug Use History: Marijuana - Past Family History Mother Family Medical History: No Reported History Additional Family Medical History / Comment(s): hx migraines Father Family Medical History: Coronary Artery Disease (CAD), Hypertension Additional Family Medical History / Comment(s): ddd, alcoholism & drug use General Exam Limitations: no limitations General appearance: alert, in no apparent distress, obese Head exam: Present: atraumatic, normocephalic, normal inspection Eye exam: Present: normal appearance, PERRL, EOMI. Absent: scleral icterus, conjunctival injection, periorbital swelling Neck exam: Present: normal inspection Respiratory exam: Present: normal lung sounds bilaterally. Absent: respiratory distress, wheezes, rales, rhonchi, stridor Cardiovascular Exam: Present: regular rate, normal rhythm, normal heart sounds. Absent: systolic murmur, diastolic murmur, rubs, gallop, clicks GI/Abdominal exam: Present: soft, normal bowel sounds. Absent: distended, tenderness, guarding, rebound, rigid Extremities exam: Present: normal inspection, full ROM, normal capillary refill. Absent: tenderness, pedal edema, joint swelling, calf tenderness Neurological exam: Present: alert, oriented X3 Psychiatric exam: Present: normal affect, normal mood Skin exam: Present: warm, dry, intact, normal color. Absent: rash Course Vital Signs 11/27/20 11/27/20 10:50 11:45 Temperature 98.7 F Pulse Rate 115 H 115 H Respiratory 18 20 Rate Blood Pressure 113/88 116/65 O2 Sat by Pulse 97 99 Oximetry Medical Decision Making - Medical Decision Making 30-year-old female complaining of anxiety, palpitations, chest discomfort. Labs, EKG, highway inspector, chest x-ray, 1 L normal saline ordered. Chest x-ray negative for any acute process. - Lab Data Result diagrams: 11/27/20 11:44 Lab Results 11/27/20 11/27/20 Range/Units 11:44 11:44 Sodium 137 (137-145) mmol/L Potassium 4.7 (3.5-5.1) mmol/L Chloride 107 (98-107) mmol/L Carbon Dioxide 18 L (22-30) mmol/L Anion Gap 12 mmol/L BUN 11 (7-17) mg/dL Creatinine 0.64 (0.52-1.04) mg/dL Est GFR (CKD-EPI)AfAm >90 (>60 ml/min/1.73 sqM) Est GFR (CKD-EPI)NonAf >90 (>60 ml/min/1.73 sqM) Glucose 160 H (74-99) mg/dL Calcium 10.7 H (8.4-10.2) mg/dL Magnesium 1.9 (1.6-2.3) mg/dL Total Bilirubin 0.2 (0.2-1.3) mg/dL AST 35 (14-36) U/L ALT 29 (4-34) U/L Alkaline Phosphatase 70 (38-126) U/L Total Protein 7.2 (6.3-8.2) g/dL Albumin 4.3 (3.5-5.0) g/dL Urine Color Yellow Urine Appearance Cloudy H (Clear) Urine pH 6.0 (5.0-8.0) Ur Specific [place] 1.017 (1.001-1.035) Urine Protein Negative (Negative) Urine Glucose (UA) 2+ H (Negative) Urine Ketones Negative (Negative) Urine Blood Negative (Negative) Urine Nitrite Negative (Negative) Urine Bilirubin Negative (Negative) Urine Urobilinogen <2.0 (<2.0) mg/dL Ur Leukocyte Esterase Large H (Negative) Urine RBC 3 (0-5) /hpf Urine WBC 11 H (0-5) /hpf Ur Squamous Epith Cells 15 H (0-4) /hpf Urine Bacteria Rare H (None) /hpf Urine Mucus Rare H (None) /hpf - EKG Data -: EKG Interpreted by Me EKG shows normal: sinus rhythm Rate: normal EKG Comments: Ventricular rate 113 bpm, OH interval 142 ms, QRS duration 72 ms, QTC 480 ms, PRT axes 57/110/18. Sinus tachycardia, right axis deviation, abnormal ECG. Disposition Clinical Impression: Acute anxiety, Atypical chest pain Disposition: HOME SELF-CARE Condition: Stable Instructions (If sedation given, give patient instructions): Generalized Anxiety Disorder (ED) Additional Instructions: Please return to the Emergency Department if symptoms worsen or any other concerns. Follow-up primary care in the next 1-2 days. Continue take at home medications as prescribed. Increase oral fluid intake. Is patient prescribed a controlled substance at d/c from ED?: No Referrals: Jorje Mayes MD [Primary Care Provider] - 1-2 days Time of Disposition: 12:39
[2020-11-27 12:00] VITALS: RESP 20
[2020-11-27 12:19] LABS: Appearance,Urine Cloudy (Clear); Bacteria,Urine Rare /hpf; Bilirubin,Urine Negative (Negative); Blood,Urine Negative (Negative); Color,Urine Yellow; Glucose,Urine (UA) 2+ (Negative); Ketones,Urine Negative (Negative); Leukocyte Esterase,Urine Large (Negative); Mucus,Urine Rare /hpf; Nitrite,Urine Negative (Negative); Protein,Urine Negative (Negative); RBC,Urine 3 /hpf (0-5); Specific Gravity,Urine 1.017 (1.001-1.035); Squamous Epithelial Cell,Urine 15 /hpf (0-4); Urobilinogen,Urine <2.0 mg/dL (<2.0); WBC,Urine 11 /hpf (0-5)
[2020-11-27 12:23] LABS: ALT 29 U/L (4-34); AST 35 U/L (14-36); African American GFR (CKD) >90 (>60 ml/min/1.73 sqM); Albumin 4.3 g/dL (3.5-5.0); Alkaline Phosphatase 70 U/L (38-126); Anion Gap 12 mmol/L; Blood Urea Nitrogen 11 mg/dL (7-17); Calcium 10.7 mg/dL (8.4-10.2); Carbon Dioxide 18 mmol/L (22-30); Chloride 107 mmol/L (98-107); Glucose 160 mg/dL (74-99); Magnesium 1.9 mg/dL (1.6-2.3); Non-African American GFR(CKD) >90 (>60 ml/min/1.73 sqM); Potassium 4.7 mmol/L (3.5-5.1); Sodium 137 mmol/L (137-145); Total Bilirubin 0.2 mg/dL (0.2-1.3); Total Protein 7.2 g/dL (6.3-8.2)
[2020-11-27 12:39] LABS: Prothrombin Time 10.4 sec (9.0-12.0)
[2020-11-27 12:56] LABS: Partial Thromboplastin Time 19.6 sec (22.0-30.0)
[2020-11-27 13:12] VITALS: BP 112/65; PULSE 99; TEMP 98.1
== END 2020-11-27 13:00 | disposition home or self-care (01) ==
LOC: EC 10:39
DX: F41.9 Anxiety disorder, unspecified (principal); R07.89 Other chest pain; E11.9 Type 2 diabetes mellitus without complications; J45.909 Unspecified asthma, uncomplicated; K21.9 Gastro-esophageal reflux disease without esophagitis; F32.9 Major depressive disorder, single episode, unspecified; F17.290 Nicotine dependence, other tobacco product, uncomplicated; F12.90 Cannabis use, unspecified, uncomplicated; Z79.84 Long term (current) use of oral hypoglycemic drugs; Z79.51 Long term (current) use of inhaled steroids; Z79.899 Other long term (current) drug therapy; Z88.0 Allergy status to penicillin; Z88.2 Allergy status to sulfonamides; Z88.5 Allergy status to narcotic agent; Z88.8 Allergy status to other drugs, medicaments and biological substances
CPT/HCPCS: 36415; 71046; 80053; 81001; 83735; 84484; 85610; 85730; 87086; 93005; 99285

== ENCOUNTER 2020-11-28 19:26 | Emergency (ER) | payer OTHER ==
[2020-11-28 19:34] VITALS: BP 128/88; PULSE 89; RESP 16; TEMP 98
[2020-11-28] MEDS ORDERED: HYDROmorphone 1 MG/ML 1 ML SYRINGE IM STA (22:17)
[2020-11-28] MEDS ORDERED: ONDANSETRON ODT 4 MG TAB PO STA (22:17)
--- NOTE | 2020-11-28 22:19 | ED ---
Headache HPI - General Chief Complaint: Headache Stated Complaint: Headache Time Seen by Provider: 11/28/20 21:52 Mode of arrival: ambulatory Limitations: no limitations - History of Present Illness Initial Comments: 30 year-old female patient presents for evaluation of migraine headache. Patient has history of headaches and is maintained on emgality. States that it has not been working for the pain recently so her neurologist is considering doing injections. She does have an appointment next week. States that headache started at 2pm today. Reports light sensitivity and nausea. Denies any vomiting. Has not taken any medication at home for headache today. Denies any new symptoms with this headache. Denies this being the worst headache of her life. Denies numbness or tingling to the extremities. Denies dizziness or weakness. Denies blurred or double vision. - Related Data Home Medications Medication Instructions Recorded Confirmed ARIPiprazole [Abilify] 7.5 mg PO HS 08/13/20 11/14/20 Fenofibrate Nanocrystallized 145 mg PO HS 11/06/20 11/14/20 [Fenofibrate] Montelukast Sodium [Singulair] 10 mg PO HS 11/06/20 11/14/20 Rimegepant Sulfate [Nurtec Odt] 75 mg PO DAILY PRN 11/06/20 11/14/20 tiZANidine HCL 4 mg PO BID PRN 11/06/20 11/14/20 Albuterol Sulfate [Proair Hfa] 1 - 2 puff INHALATION Q6HR PRN 11/11/20 11/14/20 Previous Rx's Medication Instructions Recorded Atorvastatin [Lipitor] 40 mg PO HS 30 Days tab 07/01/20 Buta/APAP/Caf/Cod 28-434-75-30 1 each PO Q8HR PRN cap 11/13/20 [Fioricet w/Cod 91-790-51-30MG] Melatonin 3 mg PO HS tablet 11/13/20 Naproxen [Naprosyn] 375 mg PO BID PRN tab 11/13/20 OLANZapine [ZyPREXA] 7.5 mg PO TID PRN tab 11/13/20 Pantoprazole [Protonix] 40 mg PO AC-BRKFST tablet. 11/13/20 QUEtiapine [SEROquel] 25 mg PO DAILY tab 11/13/20 QUEtiapine [SEROquel] 300 mg PO HS tab 11/13/20 SUMAtriptan succinate [Imitrex] 25 mg PO BID PRN tab 11/13/20 Topiramate [Topamax] 50 mg PO BID tab 11/13/20 busPIRone HCl [Buspar] 20 mg PO TID tab 11/13/20 metFORMIN HCL [Glucophage] 850 mg PO BID-W/MEALS tab 11/13/20 Metoprolol Tartrate [Lopressor] 12.5 mg PO DAILY #60 tab 11/16/20 Allergies Allergy/AdvReac Type Severity Reaction Status Date / Time bee pollen Allergy Severe Anaphylaxis Verified 11/28/20 19:27 haloperidol [From Haldol] Allergy Severe QUIT Verified 11/28/20 19:27 BREATHING haloperidol lactate Allergy Severe QUIT Verified 11/28/20 19:27 [From Haldol] BREATHING latex Allergy Severe RASH-THROAT Verified 11/28/20 19:27 CLOSES tramadol Allergy Severe Nausea & Verified 11/28/20 19:27 Vomiting murrieta Allergy Anaphylaxis Verified 11/28/20 19:27 coconut Allergy Anaphylaxis Verified 11/28/20 19:27 pineapple Allergy Anaphylaxis Verified 11/28/20 19:27 prednisone Allergy THROAT Verified 11/28/20 19:27 SWELLS spider venom Allergy Swelling Verified 11/28/20 19:27 Sulfa (Sulfonamide Allergy THROAT Verified 11/28/20 19:27 Antibiotics) SWELLS venom-wasp Allergy Swelling Verified 11/28/20 19:27 venom-wasp protein Allergy Swelling Verified 11/28/20 19:27 promethazine HCl AdvReac Severe Nausea & Verified 11/28/20 19:27 [From Phenergan] Vomiting amoxicillin AdvReac Nausea & Verified 11/28/20 19:27 Vomiting ANTS Allergy Mild Anaphylaxis Uncoded 11/28/20 19:27 Review of Systems ROS Statement: Those systems with pertinent positive or pertinent negative responses have been documented in the HPI. ROS Other: All systems not noted in ROS Statement are negative. Past Medical History Past Medical History: Asthma, Diabetes Mellitus, GERD/Reflux Additional Past Medical History / Comment(s): migraines, degenerative disk disease, endometriosis, lupus, pancreatitis, covid vaccine moderna History of Any Multi-Drug Resistant Organisms: None Reported Past Surgical History: Orthopedic Surgery Additional Past Surgical History / Comment(s): laparoscopc surgery for endometriosis, cyst removed from left foot, EGD, Past Anesthesia/Blood Transfusion Reactions: Previous Problems w/ Anesthesia Additional Past Anesthesia/Blood Transfusion Reaction / Comment(s): hard to wake up for 48-72 hours after laparoscopic surgery-was in hosp. for 3 days Past Psychological History: Anxiety, Depression, PTSD Smoking Status: Vaper Past Alcohol Use History: None Reported Past Drug Use History: Marijuana - Past Family History Mother Family Medical History: No Reported History Additional Family Medical History / Comment(s): hx migraines Father Family Medical History: Coronary Artery Disease (CAD), Hypertension Additional Family Medical History / Comment(s): ddd, alcoholism & drug use General Exam Limitations: no limitations General appearance: alert, in no apparent distress, other (This is a well- developed, well-nourished adult female patient in no acute distress. Vital signs upon presentation are temperature 98.0F, pulse 89, respirations 16, blood pressure 128/88, pulse ox 97% on room air.) Eye exam: Present: normal appearance, PERRL, EOMI. Absent: scleral icterus, conjunctival injection, nystagmus, periorbital swelling Respiratory exam: Present: normal lung sounds bilaterally. Absent: respiratory distress, wheezes, rales, rhonchi, stridor Cardiovascular Exam: Present: regular rate, normal rhythm, normal heart sounds. Absent: systolic murmur, diastolic murmur, rubs, gallop, clicks GI/Abdominal exam: Present: soft, normal bowel sounds. Absent: distended, tenderness, guarding, rebound, rigid Neurological exam: Present: alert, oriented X3, CN II-XII intact Expanded Speech: Present: fluid speech Cranial nerves: EOM's Intact: Normal, Nystagmus: Normal Motor strength exam: RUE: 5, LUE: 5, RLE: 5, LLE: 5 Eye Response: (4) open spontaneously Motor Response: (6) obeys commands Verbal Response: (5) oriented [place] Total: 15 Psychiatric exam: Present: normal affect, normal mood Skin exam: Present: warm, dry, intact, normal color. Absent: rash Course Vital Signs 11/28/20 19:28 Temperature 98.0 F Pulse Rate 89 Respiratory 16 Rate Blood Pressure 128/88 O2 Sat by Pulse 97 Oximetry Medical Decision Making - Medical Decision Making 30-year-old female patient presents to the emergency department today for evaluation of headache. Does have history of migraines. Physical examination is unremarkable. No new symptoms with this headache. She'll be given IM injections for pain and discharge follow up with her primary care physician and neurologist. Return parameters were discussed in detail. She verbalizes understanding and agrees this plan. My attending is Dr. Turner. Disposition Clinical Impression: Headache Disposition: HOME SELF-CARE Condition: Good Instructions (If sedation given, give patient instructions): Acute Headache (ED) Additional Instructions: Increase fluids. Rest. Follow up with neurologist for further evaluation as soon as possible. Return to the emergency department for any new, worsening, or concerning symptoms. Is patient prescribed a controlled substance at d/c from ED?: No Referrals: Jorje Mayes MD [Primary Care Provider] - 1-2 days Time of Disposition: 22:19
== END 2020-11-28 22:31 | disposition home or self-care (01) ==
LOC: EC 19:26
DX: R51.9 Headache, unspecified (principal); E11.9 Type 2 diabetes mellitus without complications; J45.909 Unspecified asthma, uncomplicated; K21.9 Gastro-esophageal reflux disease without esophagitis; F32.9 Major depressive disorder, single episode, unspecified; F41.9 Anxiety disorder, unspecified; F17.290 Nicotine dependence, other tobacco product, uncomplicated; F12.90 Cannabis use, unspecified, uncomplicated; Z79.1 Long term (current) use of non-steroidal anti-inflammatories (NSAID); Z79.51 Long term (current) use of inhaled steroids; Z79.84 Long term (current) use of oral hypoglycemic drugs; Z79.899 Other long term (current) drug therapy; Z82.49 Family history of ischemic heart disease and other diseases of the circulatory system
CPT/HCPCS: 96372; 99284; J1170

== ENCOUNTER 2020-12-02 13:53 | Emergency (ER) | payer OTHER ==
[2020-12-02 14:32] VITALS: BP 131/93; PULSE 64; RESP 18; TEMP 98.5
[2020-12-02] MEDS ORDERED: KETOROLAC 15 MG/ML 1 ML VIAL IM STA (16:06)
--- NOTE | 2020-12-02 16:06 | ED ---
Headache HPI - General Chief Complaint: Headache Stated Complaint: migraine, neck pain Source: patient, RN notes reviewed, old records reviewed Mode of arrival: ambulatory Limitations: no limitations - History of Present Illness Initial Comments: 30-year-old white female, alert and oriented 4, presents to the emergency room with complaints of a left sided occipital headache. Patient states that she received a occipital nerve block in her doctor's office yesterday morning. She states that she now has a sharp pain in the left side of her occiput shooting into her face and is concerned that he had a nerve. She states that she did not have pain at the time of the injection and the pain came on gradually last night. She states that she spent the night at a friend's house last night and did not take her normal migraine medications. There is no redness or erythema or swelling noted at the injection site. She denies any fevers. She states that sometimes Toradol works and sometimes it doesn't and she comes to the emergency room. MD Complaint: headache -: days(s) (1) Onset Description: gradual Location: left, occipital Severity scale (1-10): 9 Quality: sharp Consistency: constant Improves With: nothing Worsens With: none Context: other (Received an occipital nerve block yesterday morning in the office) - Related Data Home Medications Medication Instructions Recorded Confirmed ARIPiprazole [Abilify] 7.5 mg PO HS 08/13/20 11/14/20 Fenofibrate Nanocrystallized 145 mg PO HS 11/06/20 11/14/20 [Fenofibrate] Montelukast Sodium [Singulair] 10 mg PO HS 11/06/20 11/14/20 Rimegepant Sulfate [Nurtec Odt] 75 mg PO DAILY PRN 11/06/20 11/14/20 tiZANidine HCL 4 mg PO BID PRN 11/06/20 11/14/20 Albuterol Sulfate [Proair Hfa] 1 - 2 puff INHALATION Q6HR PRN 11/11/20 11/14/20 Previous Rx's Medication Instructions Recorded Atorvastatin [Lipitor] 40 mg PO HS 30 Days tab 07/01/20 Buta/APAP/Caf/Cod 64-765-70-30 1 each PO Q8HR PRN cap 11/13/20 [Fioricet w/Cod 10-547-61-30MG] Melatonin 3 mg PO HS tablet 11/13/20 Naproxen [Naprosyn] 375 mg PO BID PRN tab 11/13/20 OLANZapine [ZyPREXA] 7.5 mg PO TID PRN tab 11/13/20 Pantoprazole [Protonix] 40 mg PO AC-BRKFST tablet. 11/13/20 QUEtiapine [SEROquel] 25 mg PO DAILY tab 11/13/20 QUEtiapine [SEROquel] 300 mg PO HS tab 11/13/20 SUMAtriptan succinate [Imitrex] 25 mg PO BID PRN tab 11/13/20 Topiramate [Topamax] 50 mg PO BID tab 11/13/20 busPIRone HCl [Buspar] 20 mg PO TID tab 11/13/20 metFORMIN HCL [Glucophage] 850 mg PO BID-W/MEALS tab 11/13/20 Metoprolol Tartrate [Lopressor] 12.5 mg PO DAILY #60 tab 11/16/20 Allergies Allergy/AdvReac Type Severity Reaction Status Date / Time bee pollen Allergy Severe Anaphylaxis Verified 12/02/20 14:29 haloperidol [From Haldol] Allergy Severe QUIT Verified 12/02/20 14:29 BREATHING haloperidol lactate Allergy Severe QUIT Verified 12/02/20 14:29 [From Haldol] BREATHING latex Allergy Severe RASH-THROAT Verified 12/02/20 14:29 CLOSES tramadol Allergy Severe Nausea & Verified 12/02/20 14:29 Vomiting murrieta Allergy Anaphylaxis Verified 12/02/20 14:29 coconut Allergy Anaphylaxis Verified 12/02/20 14:29 pineapple Allergy Anaphylaxis Verified 12/02/20 14:29 prednisone Allergy THROAT Verified 12/02/20 14:29 SWELLS spider venom Allergy Swelling Verified 12/02/20 14:29 Sulfa (Sulfonamide Allergy THROAT Verified 12/02/20 14:29 Antibiotics) SWELLS venom-wasp Allergy Swelling Verified 12/02/20 14:29 venom-wasp protein Allergy Swelling Verified 12/02/20 14:29 promethazine HCl AdvReac Severe Nausea & Verified 12/02/20 14:29 [From Phenergan] Vomiting amoxicillin AdvReac Nausea & Verified 12/02/20 14:29 Vomiting ANTS Allergy Mild Anaphylaxis Uncoded 12/02/20 14:29 Review of Systems ROS Statement: Those systems with pertinent positive or pertinent negative responses have been documented in the HPI. ROS Other: All systems not noted in ROS Statement are negative. Past Medical History Past Medical History: Asthma, Diabetes Mellitus, GERD/Reflux Additional Past Medical History / Comment(s): migraines, degenerative disk disease, endometriosis, lupus, pancreatitis, covid vaccine moderna History of Any Multi-Drug Resistant Organisms: None Reported Past Surgical History: Orthopedic Surgery Additional Past Surgical History / Comment(s): laparoscopc surgery for endometriosis, cyst removed from left foot, EGD, Past Anesthesia/Blood Transfusion Reactions: Previous Problems w/ Anesthesia Additional Past Anesthesia/Blood Transfusion Reaction / Comment(s): hard to wake up for 48-72 hours after laparoscopic surgery-was in hosp. for 3 days Past Psychological History: Anxiety, Depression, PTSD Smoking Status: Vaper Past Alcohol Use History: None Reported Past Drug Use History: Marijuana - Past Family History Mother Family Medical History: No Reported History Additional Family Medical History / Comment(s): hx migraines Father Family Medical History: Coronary Artery Disease (CAD), Hypertension Additional Family Medical History / Comment(s): ddd, alcoholism & drug use General Exam Limitations: no limitations General appearance: alert, in no apparent distress Head exam: Present: atraumatic, normocephalic, normal inspection Eye exam: Present: normal appearance, PERRL, EOMI. Absent: scleral icterus, conjunctival injection, periorbital swelling Pupils: Absent: normal accommodation Neck exam: Present: normal inspection, full ROM. Absent: tenderness, meningismus, lymphadenopathy, thyromegaly Respiratory exam: Present: normal lung sounds bilaterally. Absent: respiratory distress, wheezes, rales, rhonchi, stridor, chest wall tenderness, accessory muscle use, decreased breath sounds, prolonged expiratory Cardiovascular Exam: Present: regular rate, normal rhythm, normal heart sounds. Absent: systolic murmur, diastolic murmur, rubs, gallop, clicks GI/Abdominal exam: Present: soft, normal bowel sounds. Absent: distended, tenderness, guarding, rebound, rigid Extremities exam: Present: normal inspection, full ROM, normal capillary refill. Absent: tenderness, pedal edema, joint swelling, calf tenderness Back exam: Present: normal inspection, full ROM. Absent: tenderness, CVA tenderness (R), CVA tenderness (L) Neurological exam: Present: alert, oriented X3, CN II-XII intact Psychiatric exam: Present: normal affect, normal mood Skin exam: Present: warm, dry, intact, normal color. Absent: rash, cyanosis, diaphoretic, petechiae, pallor Course Vital Signs 12/02/20 14:29 Temperature 98.5 F Pulse Rate 64 Respiratory 18 Rate Blood Pressure 131/93 O2 Sat by Pulse 97 Oximetry Medical Decision Making - Medical Decision Making Patient is well-known to the emergency room has been here 4 times in the past 10 days for headaches. She was given an occipital nerve block by her doctor at [facility] yesterday morning. She states that last night she gradually developed a headache that is shooting to the left side of her face. She has no focal neurological deficits, she has no fever. There is no vomiting. She was given a shot of Toradol and directed to take her prescribed medications for migraines. Follow-up with her primary care doctor this week. Return if worsening or new symptoms if not resolved with prescribed medications for migraine. Case discussed with Dr. Zurita Disposition Clinical Impression: Headache Disposition: HOME SELF-CARE Condition: Good Instructions (If sedation given, give patient instructions): Acute Headache (ED) Additional Instructions: Take her prescribed medications for migraines. Contact your neurologist tomorrow morning. Return if any new or worsening pain or symptoms that are not resolved with your prescribed medications. Is patient prescribed a controlled substance at d/c from ED?: No Referrals: Jorje Mayes MD [Primary Care Provider] - 1-2 days Time of Disposition: 16:15
== END 2020-12-02 16:45 | disposition home or self-care (01) ==
LOC: EC 13:53
DX: R51.9 Headache, unspecified (principal); M54.2 Cervicalgia; E11.9 Type 2 diabetes mellitus without complications; F32.9 Major depressive disorder, single episode, unspecified; F41.9 Anxiety disorder, unspecified; K21.9 Gastro-esophageal reflux disease without esophagitis; F12.90 Cannabis use, unspecified, uncomplicated; F17.290 Nicotine dependence, other tobacco product, uncomplicated; Z86.16 Personal history of COVID-19; Z79.51 Long term (current) use of inhaled steroids; Z79.1 Long term (current) use of non-steroidal anti-inflammatories (NSAID); Z79.84 Long term (current) use of oral hypoglycemic drugs; Z88.0 Allergy status to penicillin; Z88.2 Allergy status to sulfonamides; Z88.5 Allergy status to narcotic agent; Z88.8 Allergy status to other drugs, medicaments and biological substances; Z91.040 Latex allergy status
CPT/HCPCS: 99283; 96372; J1885

== ENCOUNTER 2020-12-04 14:08 | Emergency (ER) | payer OTHER ==
[2020-12-04] MEDS ORDERED: KETOROLAC 15 MG/ML 1 ML VIAL IM STA (15:10)
[2020-12-04] MEDS ORDERED: METOCLOPRAMIDE 5 MG/ML 2 ML VIAL IM STA (15:10)
[2020-12-04] MEDS ORDERED: diphenhydrAMINE 50 MG CAP PO STA (15:12)
--- NOTE | 2020-12-04 15:27 | ED ---
Headache HPI - General Chief Complaint: Headache Stated Complaint: Headache Time Seen by Provider: 12/04/20 15:00 Source: patient, RN notes reviewed Mode of arrival: ambulatory Limitations: no limitations - History of Present Illness Initial Comments: Is a 30-year-old female that presents to emergency department complaining of migraine type headache for the past several hours. She notes that she tried taking her at home medications with no relief in those 2 hours. She notes that this is her typical migraine with no new symptoms. She does have photophobia and phonophobia. She notes that she did follow up with her neurologist in the past several weeks got an occipital nerve block but it did not work. She denied any other new issues or complaints at this time. She was otherwise a well- appearing 30-year-old female. She denied any chest pain shortness of breath vomiting diarrhea constipation fever fatigue chills. - Related Data Home Medications Medication Instructions Recorded Confirmed ARIPiprazole [Abilify] 7.5 mg PO HS 08/13/20 11/14/20 Fenofibrate Nanocrystallized 145 mg PO HS 11/06/20 11/14/20 [Fenofibrate] Montelukast Sodium [Singulair] 10 mg PO HS 11/06/20 11/14/20 Rimegepant Sulfate [Nurtec Odt] 75 mg PO DAILY PRN 11/06/20 11/14/20 tiZANidine HCL 4 mg PO BID PRN 11/06/20 11/14/20 Albuterol Sulfate [Proair Hfa] 1 - 2 puff INHALATION Q6HR PRN 11/11/20 11/14/20 Previous Rx's Medication Instructions Recorded Atorvastatin [Lipitor] 40 mg PO HS 30 Days tab 07/01/20 Buta/APAP/Caf/Cod 82-265-13-30 1 each PO Q8HR PRN cap 11/13/20 [Fioricet w/Cod 74-575-00-30MG] Melatonin 3 mg PO HS tablet 11/13/20 Naproxen [Naprosyn] 375 mg PO BID PRN tab 11/13/20 OLANZapine [ZyPREXA] 7.5 mg PO TID PRN tab 11/13/20 Pantoprazole [Protonix] 40 mg PO AC-BRKFST tablet. 11/13/20 QUEtiapine [SEROquel] 25 mg PO DAILY tab 11/13/20 QUEtiapine [SEROquel] 300 mg PO HS tab 11/13/20 SUMAtriptan succinate [Imitrex] 25 mg PO BID PRN tab 11/13/20 Topiramate [Topamax] 50 mg PO BID tab 11/13/20 busPIRone HCl [Buspar] 20 mg PO TID tab 11/13/20 metFORMIN HCL [Glucophage] 850 mg PO BID-W/MEALS tab 11/13/20 Metoprolol Tartrate [Lopressor] 12.5 mg PO DAILY #60 tab 11/16/20 Allergies Allergy/AdvReac Type Severity Reaction Status Date / Time bee pollen Allergy Severe Anaphylaxis Verified 12/04/20 14:14 haloperidol [From Haldol] Allergy Severe QUIT Verified 12/04/20 14:14 BREATHING haloperidol lactate Allergy Severe QUIT Verified 12/04/20 14:14 [From Haldol] BREATHING latex Allergy Severe RASH-THROAT Verified 12/04/20 14:14 CLOSES tramadol Allergy Severe Nausea & Verified 12/04/20 14:14 Vomiting murrieta Allergy Anaphylaxis Verified 12/04/20 14:14 coconut Allergy Anaphylaxis Verified 12/04/20 14:14 pineapple Allergy Anaphylaxis Verified 12/04/20 14:14 prednisone Allergy THROAT Verified 12/04/20 14:14 SWELLS spider venom Allergy Swelling Verified 12/04/20 14:14 Sulfa (Sulfonamide Allergy THROAT Verified 12/04/20 14:14 Antibiotics) SWELLS venom-wasp Allergy Swelling Verified 12/04/20 14:14 venom-wasp protein Allergy Swelling Verified 12/04/20 14:14 promethazine HCl AdvReac Severe Nausea & Verified 12/04/20 14:14 [From Phenergan] Vomiting amoxicillin AdvReac Nausea & Verified 12/04/20 14:14 Vomiting ANTS Allergy Mild Anaphylaxis Uncoded 12/04/20 14:14 Review of Systems ROS Statement: Those systems with pertinent positive or pertinent negative responses have been documented in the HPI. ROS Other: All systems not noted in ROS Statement are negative. Past Medical History Past Medical History: Asthma, Diabetes Mellitus, GERD/Reflux Additional Past Medical History / Comment(s): migraines, degenerative disk disease, endometriosis, lupus, pancreatitis, covid vaccine moderna History of Any Multi-Drug Resistant Organisms: None Reported Past Surgical History: Orthopedic Surgery Additional Past Surgical History / Comment(s): laparoscopc surgery for endometriosis, cyst removed from left foot, EGD, Past Anesthesia/Blood Transfusion Reactions: Previous Problems w/ Anesthesia Additional Past Anesthesia/Blood Transfusion Reaction / Comment(s): hard to wake up for 48-72 hours after laparoscopic surgery-was in hosp. for 3 days Past Psychological History: Anxiety, Depression, PTSD Smoking Status: Vaper Past Alcohol Use History: None Reported Past Drug Use History: Marijuana - Past Family History Mother Family Medical History: No Reported History Additional Family Medical History / Comment(s): hx migraines Father Family Medical History: Coronary Artery Disease (CAD), Hypertension Additional Family Medical History / Comment(s): ddd, alcoholism & drug use General Exam Limitations: no limitations General appearance: alert, in no apparent distress Head exam: Present: atraumatic, normocephalic, normal inspection Eye exam: Present: normal appearance, PERRL, EOMI. Absent: scleral icterus, conjunctival injection, periorbital swelling Neck exam: Present: normal inspection Respiratory exam: Present: normal lung sounds bilaterally. Absent: respiratory distress, wheezes, rales, rhonchi, stridor Cardiovascular Exam: Present: regular rate, normal rhythm, normal heart sounds. Absent: systolic murmur, diastolic murmur, rubs, gallop, clicks Extremities exam: Present: normal inspection, full ROM, normal capillary refill. Absent: tenderness, pedal edema, joint swelling, calf tenderness Neurological exam: Present: alert, oriented X3 Psychiatric exam: Present: normal affect, normal mood Skin exam: Present: warm, dry, intact, normal color. Absent: rash Course Vital Signs 12/04/20 14:11 Temperature 97.8 F Pulse Rate 129 H Respiratory 20 Rate Blood Pressure 135/96 O2 Sat by Pulse 97 Oximetry Medical Decision Making - Medical Decision Making 30-year-old female complaining of her typical migraine type headache. 10 mg of Reglan, 15 mg of Toradol, 50 mg of Benadryl ordered. Case discussed with Dr. Granda, patient can discharge home with continuing follow-up to her neurologist and primary care. Disposition Clinical Impression: Migraine headache Disposition: HOME SELF-CARE Condition: Stable Instructions (If sedation given, give patient instructions): Acute Headache (ED) Additional Instructions: Please return to the Emergency Department if symptoms worsen or any other concerns. Follow-up primary care in 1-2 days. Continue to follow-up with neurologist for continuing chronic management of headache. Rest. Increase oral fluids. Is patient prescribed a controlled substance at d/c from ED?: No Referrals: Jorje Mayes MD [Primary Care Provider] - 1-2 days Time of Disposition: 15:27
[2020-12-04 16:14] VITALS: BP 127/75; PULSE 97; RESP 18; TEMP 98
== END 2020-12-04 16:14 | disposition home or self-care (01) ==
LOC: EC 14:08
DX: G43.909 Migraine, unspecified, not intractable, without status migrainosus (principal); E11.9 Type 2 diabetes mellitus without complications; K21.9 Gastro-esophageal reflux disease without esophagitis; J45.909 Unspecified asthma, uncomplicated; F41.9 Anxiety disorder, unspecified; F32.9 Major depressive disorder, single episode, unspecified; F43.12 Post-traumatic stress disorder, chronic; F17.290 Nicotine dependence, other tobacco product, uncomplicated; F12.90 Cannabis use, unspecified, uncomplicated; Z79.84 Long term (current) use of oral hypoglycemic drugs; Z91.040 Latex allergy status; Z88.1 Allergy status to other antibiotic agents; Z88.2 Allergy status to sulfonamides; Z91.018 Allergy to other foods; Z88.5 Allergy status to narcotic agent
CPT/HCPCS: 99283; 96372 ×2; J2765; J1885

== ENCOUNTER 2020-12-15 12:11 | Emergency (ER) | payer OTHER ==
[2020-12-15 12:14] VITALS: TEMP 97.8
[2020-12-15] MEDS ORDERED: SODIUM CHLORIDE 0.9% 1,000 ML IV STA (12:34)
[2020-12-15] MEDS ORDERED: HYDROmorphone 1 MG/ML 1 ML SYRINGE IVP STA (12:34)
[2020-12-15] MEDS ORDERED: KETOROLAC 15 MG/ML 1 ML VIAL IVP STA (12:35)
[2020-12-15] MEDS ORDERED: METOCLOPRAMIDE 5 MG/ML 2 ML VIAL IVP STA (12:35)
[2020-12-15] MEDS ORDERED: diphenhydrAMINE 50 MG/ML 1 ML VIAL IVP STA ×2 (12:35→13:51)
--- NOTE | 2020-12-15 12:41 | ED ---
Headache HPI - General Chief Complaint: Headache Stated Complaint: headache Time Seen by Provider: 12/15/20 12:18 Mode of arrival: ambulatory Limitations: no limitations - History of Present Illness Initial Comments: 30-year-old female with history migraine headaches presents emergency department with a chief complaint of a migraine 2 days. Patient reports this was a gradual onset headache and not the worst headache of her life, it is located on the right side of her head and associated with photophobia, nausea or vomiting. She reports multiple nonbilious and nonbloody vomiting episodes. She states this feels a typical headache but the home medications are not controlling it. States she is unable to take anything orally due to the vomiting. Patient reports typically IV fluids, antiemetics and analgesia help the pain. She denies any visual changes, one-sided weakness or paresthesias. Denies possibility for - Related Data Home Medications Medication Instructions Recorded Confirmed ARIPiprazole [Abilify] 7.5 mg PO HS 08/13/20 11/14/20 Fenofibrate Nanocrystallized 145 mg PO HS 11/06/20 11/14/20 [Fenofibrate] Montelukast Sodium [Singulair] 10 mg PO HS 11/06/20 11/14/20 Rimegepant Sulfate [Nurtec Odt] 75 mg PO DAILY PRN 11/06/20 11/14/20 tiZANidine HCL 4 mg PO BID PRN 11/06/20 11/14/20 Albuterol Sulfate [Proair Hfa] 1 - 2 puff INHALATION Q6HR PRN 11/11/20 11/14/20 Previous Rx's Medication Instructions Recorded Atorvastatin [Lipitor] 40 mg PO HS 30 Days tab 07/01/20 Buta/APAP/Caf/Cod [id number] 1 each PO Q8HR PRN cap 11/13/20 [Fioricet w/Cod 92-739-16-30MG] Melatonin 3 mg PO HS tablet 11/13/20 Naproxen [Naprosyn] 375 mg PO BID PRN tab 11/13/20 OLANZapine [ZyPREXA] 7.5 mg PO TID PRN tab 11/13/20 Pantoprazole [Protonix] 40 mg PO AC-BRKFST tablet. 11/13/20 QUEtiapine [SEROquel] 25 mg PO DAILY tab 11/13/20 QUEtiapine [SEROquel] 300 mg PO HS tab 11/13/20 SUMAtriptan succinate [Imitrex] 25 mg PO BID PRN tab 11/13/20 Topiramate [Topamax] 50 mg PO BID tab 11/13/20 busPIRone HCl [Buspar] 20 mg PO TID tab 11/13/20 metFORMIN HCL [Glucophage] 850 mg PO BID-W/MEALS tab 11/13/20 Metoprolol Tartrate [Lopressor] 12.5 mg PO DAILY #60 tab 11/16/20 Allergies Allergy/AdvReac Type Severity Reaction Status Date / Time bee pollen Allergy Severe Anaphylaxis Verified 12/15/20 12:12 haloperidol [From Haldol] Allergy Severe QUIT Verified 12/15/20 12:12 BREATHING haloperidol lactate Allergy Severe QUIT Verified 12/15/20 12:12 [From Haldol] BREATHING latex Allergy Severe RASH-THROAT Verified 12/15/20 12:12 CLOSES tramadol Allergy Severe Nausea & Verified 12/15/20 12:12 Vomiting murrieta Allergy Anaphylaxis Verified 12/15/20 12:12 coconut Allergy Anaphylaxis Verified 12/15/20 12:12 pineapple Allergy Anaphylaxis Verified 12/15/20 12:12 prednisone Allergy THROAT Verified 12/15/20 12:12 SWELLS spider venom Allergy Swelling Verified 12/15/20 12:12 Sulfa (Sulfonamide Allergy THROAT Verified 12/15/20 12:12 Antibiotics) SWELLS venom-wasp Allergy Swelling Verified 12/15/20 12:12 venom-wasp protein Allergy Swelling Verified 12/15/20 12:12 promethazine HCl AdvReac Severe Nausea & Verified 12/15/20 12:12 [From Phenergan] Vomiting amoxicillin AdvReac Nausea & Verified 12/15/20 12:12 Vomiting ANTS Allergy Mild Anaphylaxis Uncoded 12/15/20 12:12 Review of Systems ROS Statement: Those systems with pertinent positive or pertinent negative responses have been documented in the HPI. ROS Other: All systems not noted in ROS Statement are negative. Past Medical History Past Medical History: Asthma, Diabetes Mellitus, GERD/Reflux Additional Past Medical History / Comment(s): migraines, degenerative disk disease, endometriosis, lupus, pancreatitis, covid vaccine moderna History of Any Multi-Drug Resistant Organisms: None Reported Past Surgical History: Orthopedic Surgery Additional Past Surgical History / Comment(s): laparoscopc surgery for endometriosis, cyst removed from left foot, EGD, Past Anesthesia/Blood Transfusion Reactions: Previous Problems w/ Anesthesia Additional Past Anesthesia/Blood Transfusion Reaction / Comment(s): hard to wake up for 48-72 hours after laparoscopic surgery-was in hosp. for 3 days Past Psychological History: Anxiety, Depression, PTSD Smoking Status: Vaper Past Alcohol Use History: None Reported Past Drug Use History: Marijuana - Past Family History Mother Family Medical History: No Reported History Additional Family Medical History / Comment(s): hx migraines Father Family Medical History: Coronary Artery Disease (CAD), Hypertension Additional Family Medical History / Comment(s): ddd, alcoholism & drug use General Exam Limitations: no limitations General appearance: alert, in no apparent distress, obese Head exam: Present: atraumatic, normocephalic, normal inspection Eye exam: Present: normal appearance Pupils: Present: normal accommodation ENT exam: Present: normal exam, normal oropharynx, mucous membranes moist Neck exam: Present: normal inspection, full ROM. Absent: tenderness, lymphadenopathy Respiratory exam: Present: normal lung sounds bilaterally. Absent: respiratory distress Cardiovascular Exam: Present: regular rate, normal rhythm, normal heart sounds. Absent: systolic murmur GI/Abdominal exam: Present: soft. Absent: distended, tenderness, guarding Extremities exam: Present: normal inspection, full ROM, normal capillary refill. Absent: tenderness Back exam: Present: normal inspection, full ROM. Absent: tenderness Neurological exam: Present: alert, oriented X3, CN II-XII intact, normal gait Psychiatric exam: Present: normal affect, normal mood Skin exam: Present: warm, dry, intact, normal color Course Vital Signs 12/15/20 12:13 Temperature 97.8 F Pulse Rate 50 L Respiratory 18 Rate Blood Pressure 121/77 O2 Sat by Pulse 98 Oximetry Medical Decision Making - Medical Decision Making 30-year-old female with history of migraines presents emergency Department with a chief complaint of migraine. On physical examination, no focal deficits. Patient was given IV fluids, analgesia, antibiotics. On reevaluation, she reports improved his symptoms. Patient will be discharged and advised to follow-up with a neurologist. Return parameters were thoroughly discussed patient is understanding and agreeable Disposition Clinical Impression: Migraine headache Disposition: HOME SELF-CARE Condition: Stable Instructions (If sedation given, give patient instructions): Acute Headache (ED) Additional Instructions: Please return to the Emergency Department if symptoms worsen or any other concerns. Is patient prescribed a controlled substance at d/c from ED?: No Referrals: Jorje Mayes MD [Primary Care Provider] - 1-2 days Time of Disposition: 13:46
[2020-12-15 14:18] VITALS: BP 117/74; PULSE 82; RESP 16
== END 2020-12-15 14:43 | disposition home or self-care (01) ==
LOC: EC 12:11
DX: G43.909 Migraine, unspecified, not intractable, without status migrainosus (principal); J45.909 Unspecified asthma, uncomplicated; E11.9 Type 2 diabetes mellitus without complications; K21.9 Gastro-esophageal reflux disease without esophagitis; F41.9 Anxiety disorder, unspecified; F32.9 Major depressive disorder, single episode, unspecified; F43.10 Post-traumatic stress disorder, unspecified; F17.290 Nicotine dependence, other tobacco product, uncomplicated; F12.90 Cannabis use, unspecified, uncomplicated; Z79.84 Long term (current) use of oral hypoglycemic drugs; Z79.51 Long term (current) use of inhaled steroids; Z79.899 Other long term (current) drug therapy
CPT/HCPCS: 99283; 96374; 96375 ×3; 96376; 96361; J1200; J2765; J1170; J1885

== ENCOUNTER 2020-12-18 11:35 | Emergency (ER) | payer OTHER ==
[2020-12-18] MEDS ORDERED: diphenhydrAMINE 50 MG CAP PO STA (11:56)
[2020-12-18] MEDS ORDERED: KETOROLAC 15 MG/ML 1 ML VIAL IM STA (11:56)
[2020-12-18] MEDS ORDERED: METOCLOPRAMIDE 5 MG/ML 2 ML VIAL IM STA (11:57)
--- NOTE | 2020-12-18 12:09 | ED ---
General Adult HPI - General Chief complaint: Headache Stated complaint: Headache Time Seen by Provider: 12/18/20 11:40 Source: patient Mode of arrival: ambulatory Limitations: no limitations - History of Present Illness Initial comments: 30-year-old female presents to the emergency room for a chief complaint of headache. Patient has a history of migraines. Patient states that this started yesterday. Since the pain is all over her head. Denies visual changes. Patient states she did take her two Triptan medications at home as well as nurtech. The se do not seem to be helping.Patient has no other complaints at this time including shortness of breath, chest pain, abdominal pain, nausea or vomiting, or visual changes. - Related Data Home Medications Medication Instructions Recorded Confirmed ARIPiprazole [Abilify] 7.5 mg PO HS 08/13/20 11/14/20 Fenofibrate Nanocrystallized 145 mg PO HS 11/06/20 11/14/20 [Fenofibrate] Montelukast Sodium [Singulair] 10 mg PO HS 11/06/20 11/14/20 Rimegepant Sulfate [Nurtec Odt] 75 mg PO DAILY PRN 11/06/20 11/14/20 tiZANidine HCL 4 mg PO BID PRN 11/06/20 11/14/20 Albuterol Sulfate [Proair Hfa] 1 - 2 puff INHALATION Q6HR PRN 11/11/20 11/14/20 Previous Rx's Medication Instructions Recorded Atorvastatin [Lipitor] 40 mg PO HS 30 Days tab 07/01/20 Buta/APAP/Caf/Cod 27-454-25-30 1 each PO Q8HR PRN cap 11/13/20 [Fioricet w/Cod 76-307-25-30MG] Melatonin 3 mg PO HS tablet 11/13/20 Naproxen [Naprosyn] 375 mg PO BID PRN tab 11/13/20 OLANZapine [ZyPREXA] 7.5 mg PO TID PRN tab 11/13/20 Pantoprazole [Protonix] 40 mg PO AC-BRKFST tablet. 11/13/20 QUEtiapine [SEROquel] 25 mg PO DAILY tab 11/13/20 QUEtiapine [SEROquel] 300 mg PO HS tab 11/13/20 SUMAtriptan succinate [Imitrex] 25 mg PO BID PRN tab 11/13/20 Topiramate [Topamax] 50 mg PO BID tab 11/13/20 busPIRone HCl [Buspar] 20 mg PO TID tab 11/13/20 metFORMIN HCL [Glucophage] 850 mg PO BID-W/MEALS tab 11/13/20 Metoprolol Tartrate [Lopressor] 12.5 mg PO DAILY #60 tab 11/16/20 Allergies Allergy/AdvReac Type Severity Reaction Status Date / Time bee pollen Allergy Severe Anaphylaxis Verified 12/18/20 11:36 haloperidol [From Haldol] Allergy Severe QUIT Verified 12/18/20 11:36 BREATHING haloperidol lactate Allergy Severe QUIT Verified 12/18/20 11:36 [From Haldol] BREATHING latex Allergy Severe RASH-THROAT Verified 12/18/20 11:36 CLOSES tramadol Allergy Severe Nausea & Verified 12/18/20 11:36 Vomiting murrieta Allergy Anaphylaxis Verified 12/18/20 11:36 coconut Allergy Anaphylaxis Verified 12/18/20 11:36 pineapple Allergy Anaphylaxis Verified 12/18/20 11:36 prednisone Allergy THROAT Verified 12/18/20 11:36 SWELLS spider venom Allergy Swelling Verified 12/18/20 11:36 Sulfa (Sulfonamide Allergy THROAT Verified 12/18/20 11:36 Antibiotics) SWELLS venom-wasp Allergy Swelling Verified 12/18/20 11:36 venom-wasp protein Allergy Swelling Verified 12/18/20 11:36 promethazine HCl AdvReac Severe Nausea & Verified 12/18/20 11:36 [From Phenergan] Vomiting amoxicillin AdvReac Nausea & Verified 12/18/20 11:36 Vomiting ANTS Allergy Mild Anaphylaxis Uncoded 12/18/20 11:36 Review of Systems ROS Statement: Those systems with pertinent positive or pertinent negative responses have been documented in the HPI. ROS Other: All systems not noted in ROS Statement are negative. Past Medical History Past Medical History: Asthma, Diabetes Mellitus, GERD/Reflux Additional Past Medical History / Comment(s): migraines, degenerative disk disease, endometriosis, lupus, pancreatitis, covid vaccine moderna History of Any Multi-Drug Resistant Organisms: None Reported Past Surgical History: Orthopedic Surgery Additional Past Surgical History / Comment(s): laparoscopc surgery for endometriosis, cyst removed from left foot, EGD, Past Anesthesia/Blood Transfusion Reactions: Previous Problems w/ Anesthesia Additional Past Anesthesia/Blood Transfusion Reaction / Comment(s): hard to wake up for 48-72 hours after laparoscopic surgery-was in hosp. for 3 days Past Psychological History: Anxiety, Depression, PTSD Smoking Status: Vaper Past Alcohol Use History: None Reported Past Drug Use History: Marijuana - Past Family History Mother Family Medical History: No Reported History Additional Family Medical History / Comment(s): hx migraines Father Family Medical History: Coronary Artery Disease (CAD), Hypertension Additional Family Medical History / Comment(s): ddd, alcoholism & drug use General Exam Limitations: no limitations General appearance: alert, in no apparent distress Head exam: Present: atraumatic Eye exam: Present: normal appearance, PERRL, EOMI. Absent: scleral icterus, conjunctival injection ENT exam: Present: normal exam, mucous membranes moist Neck exam: Present: normal inspection, full ROM. Absent: tenderness Respiratory exam: Present: normal lung sounds bilaterally. Absent: respiratory distress, wheezes Cardiovascular Exam: Present: regular rate, normal rhythm, normal heart sounds Neurological exam: Present: alert Course Vital Signs 12/18/20 11:36 Temperature 97.6 F Pulse Rate 132 H Respiratory 18 Rate Blood Pressure 127/77 O2 Sat by Pulse 97 Oximetry Medical Decision Making - Medical Decision Making presents for migraine symptoms consistent with previous migraine. No thunderclap symptoms. Pain in her head is "all over." Patient did take her medications at home. Patient will be given migraine vacation IM. We will not be giving patient narcotic pain medication aa she is here several times a month for this pain. We will need to find ways to treat her without using addictive opioids. She will need to follow up with primary care. She will return here for any worsening symptoms. Disposition Clinical Impression: Headache, Migraine Disposition: HOME SELF-CARE Condition: Good Instructions (If sedation given, give patient instructions): Acute Headache (ED) Additional Instructions: Please take your migraine medications at home. Follow-up with your doctor in 1 to 2 days. Return to the emergency room for any worsening symptoms. Is patient prescribed a controlled substance at d/c from ED?: No Referrals: Jorje Mayes MD [Primary Care Provider] - 1-2 days Time of Disposition: 12:10
[2020-12-18] MEDS ORDERED: ORPHENADRINE 30 MG/ML 2 ML VIAL IM STA (14:15)
[2020-12-18 14:28] VITALS: BP 146/82; PULSE 82; RESP 16; TEMP 98
== END 2020-12-18 14:28 | disposition home or self-care (01) ==
LOC: EC 11:35
DX: G43.909 Migraine, unspecified, not intractable, without status migrainosus (principal); E11.9 Type 2 diabetes mellitus without complications; F32.9 Major depressive disorder, single episode, unspecified; F41.9 Anxiety disorder, unspecified; K21.9 Gastro-esophageal reflux disease without esophagitis; F43.10 Post-traumatic stress disorder, unspecified; F12.90 Cannabis use, unspecified, uncomplicated; F17.290 Nicotine dependence, other tobacco product, uncomplicated; Z79.84 Long term (current) use of oral hypoglycemic drugs; Z79.51 Long term (current) use of inhaled steroids; Z79.899 Other long term (current) drug therapy
CPT/HCPCS: 99283; 96372 ×3; J2360; J2765; J1885

== ENCOUNTER 2020-12-22 13:32 | Emergency (ER) | payer OTHER ==
--- NOTE | 2020-12-22 14:04 | XR ---
EXAMINATION TYPE: XR hand complete RT DATE OF EXAM: 12/22/2020 CLINICAL HISTORY: Trauma TECHNIQUE: 3 views of the right hand were obtained. COMPARISON: 11/12/2020 FINDINGS: No fracture or dislocation. No significant soft tissue swelling. No radiopaque foreign body seen within the soft tissues. IMPRESSION: No fracture or subluxation.
--- NOTE | 2020-12-22 14:19 | ED ---
Upper Extremity HPI - General Chief Complaint: Extremity Injury, Upper Stated Complaint: hand injury Time Seen by Provider: 12/22/20 13:49 Source: patient, RN notes reviewed Mode of arrival: ambulatory Limitations: no limitations - History of Present Illness Initial Comments: 30-year-old female presented to the emergency Department with chief complaint right hand injury. Patient states she was upset and punched a wall. Patient has pain, bruising across her second third medical carpal region. Patient states she has no paresthesias. Patient offers no complaints. - Related Data Home Medications Medication Instructions Recorded Confirmed ARIPiprazole [Abilify] 7.5 mg PO HS 08/13/20 11/14/20 Fenofibrate Nanocrystallized 145 mg PO HS 11/06/20 11/14/20 [Fenofibrate] Montelukast Sodium [Singulair] 10 mg PO HS 11/06/20 11/14/20 Rimegepant Sulfate [Nurtec Odt] 75 mg PO DAILY PRN 11/06/20 11/14/20 tiZANidine HCL 4 mg PO BID PRN 11/06/20 11/14/20 Albuterol Sulfate [Proair Hfa] 1 - 2 puff INHALATION Q6HR PRN 11/11/20 11/14/20 Previous Rx's Medication Instructions Recorded Atorvastatin [Lipitor] 40 mg PO HS 30 Days tab 07/01/20 Buta/APAP/Caf/Cod 64-624-62-30 1 each PO Q8HR PRN cap 11/13/20 [Fioricet w/Cod 46-773-48-30MG] Melatonin 3 mg PO HS tablet 11/13/20 Naproxen [Naprosyn] 375 mg PO BID PRN tab 11/13/20 OLANZapine [ZyPREXA] 7.5 mg PO TID PRN tab 11/13/20 Pantoprazole [Protonix] 40 mg PO AC-BRKFST tablet. 11/13/20 QUEtiapine [SEROquel] 25 mg PO DAILY tab 11/13/20 QUEtiapine [SEROquel] 300 mg PO HS tab 11/13/20 SUMAtriptan succinate [Imitrex] 25 mg PO BID PRN tab 11/13/20 Topiramate [Topamax] 50 mg PO BID tab 11/13/20 busPIRone HCl [Buspar] 20 mg PO TID tab 11/13/20 metFORMIN HCL [Glucophage] 850 mg PO BID-W/MEALS tab 11/13/20 Metoprolol Tartrate [Lopressor] 12.5 mg PO DAILY #60 tab 11/16/20 Allergies Allergy/AdvReac Type Severity Reaction Status Date / Time bee pollen Allergy Severe Anaphylaxis Verified 12/22/20 13:39 haloperidol [From Haldol] Allergy Severe QUIT Verified 12/22/20 13:39 BREATHING haloperidol lactate Allergy Severe QUIT Verified 12/22/20 13:39 [From Haldol] BREATHING latex Allergy Severe RASH-THROAT Verified 12/22/20 13:39 CLOSES tramadol Allergy Severe Nausea & Verified 12/22/20 13:39 Vomiting murrieta Allergy Anaphylaxis Verified 12/22/20 13:39 coconut Allergy Anaphylaxis Verified 12/22/20 13:39 pineapple Allergy Anaphylaxis Verified 12/22/20 13:39 prednisone Allergy THROAT Verified 12/22/20 13:39 SWELLS spider venom Allergy Swelling Verified 12/22/20 13:39 Sulfa (Sulfonamide Allergy THROAT Verified 12/22/20 13:39 Antibiotics) SWELLS venom-wasp Allergy Swelling Verified 12/22/20 13:39 venom-wasp protein Allergy Swelling Verified 12/22/20 13:39 promethazine HCl AdvReac Severe Nausea & Verified 12/22/20 13:39 [From Phenergan] Vomiting amoxicillin AdvReac Nausea & Verified 12/22/20 13:39 Vomiting ANTS Allergy Mild Anaphylaxis Uncoded 12/22/20 13:39 Review of Systems ROS Statement: Those systems with pertinent positive or pertinent negative responses have been documented in the HPI. ROS Other: All systems not noted in ROS Statement are negative. Past Medical History Past Medical History: Asthma, Diabetes Mellitus, GERD/Reflux Additional Past Medical History / Comment(s): migraines, degenerative disk disease, endometriosis, lupus, pancreatitis, covid vaccine moderna History of Any Multi-Drug Resistant Organisms: None Reported Past Surgical History: Orthopedic Surgery Additional Past Surgical History / Comment(s): laparoscopc surgery for endometriosis, cyst removed from left foot, EGD, Past Anesthesia/Blood Transfusion Reactions: Previous Problems w/ Anesthesia Additional Past Anesthesia/Blood Transfusion Reaction / Comment(s): hard to wake up for 48-72 hours after laparoscopic surgery-was in hosp. for 3 days Past Psychological History: Anxiety, Depression, PTSD Smoking Status: Vaper Past Alcohol Use History: None Reported Past Drug Use History: Marijuana - Past Family History Mother Family Medical History: No Reported History Additional Family Medical History / Comment(s): hx migraines Father Family Medical History: Coronary Artery Disease (CAD), Hypertension Additional Family Medical History / Comment(s): ddd, alcoholism & drug use General Exam Limitations: no limitations General appearance: alert, in no apparent distress Head exam: Present: atraumatic, normocephalic, normal inspection Eye exam: Present: normal appearance, PERRL, EOMI. Absent: scleral icterus, conjunctival injection, periorbital swelling Respiratory exam: Present: normal lung sounds bilaterally. Absent: respiratory distress, wheezes, rales, rhonchi, stridor Cardiovascular Exam: Present: regular rate (Patient was tachycardic in triage secondary pain patient's heart rate has improved.), normal rhythm, normal heart sounds. Absent: systolic murmur, diastolic murmur, rubs, gallop, clicks Extremities exam: Present: other (Right hand there is some swelling, ecchymotic areas noted over the second third and fourth MCP region pain with palpation neurovascular intact no wrist tenderness) Course Vital Signs 12/22/20 13:39 Temperature 98.0 F Pulse Rate 132 H Respiratory 20 Rate Blood Pressure 114/81 O2 Sat by Pulse 97 Oximetry Medical Decision Making - Medical Decision Making X-ray is negative as read by radiologist no acute fractures. Patient discharged with right hand contusion return parameters discussed. Disposition Clinical Impression: Contusion of right hand Disposition: HOME SELF-CARE Condition: Stable Instructions (If sedation given, give patient instructions): Hand Sprain (ED) Additional Instructions: Please return to the Emergency Department if symptoms worsen or any other concerns. Is patient prescribed a controlled substance at d/c from ED?: No Referrals: Jorje Mayes MD [Primary Care Provider] - 1-2 days Time of Disposition: 14:27
[2020-12-22] MEDS ORDERED: HYDROcodone/APAP 5-325MG 1 EACH TAB PO STA (14:23)
[2020-12-22 14:47] VITALS: BP 121/82; PULSE 101; RESP 18; TEMP 98.2
== END 2020-12-22 14:47 | disposition home or self-care (01) ==
LOC: EC 13:32
DX: S60.221A Contusion of right hand, initial encounter (principal); E11.9 Type 2 diabetes mellitus without complications; K21.9 Gastro-esophageal reflux disease without esophagitis; F32.9 Major depressive disorder, single episode, unspecified; F41.9 Anxiety disorder, unspecified; J45.909 Unspecified asthma, uncomplicated; F17.290 Nicotine dependence, other tobacco product, uncomplicated; F12.90 Cannabis use, unspecified, uncomplicated; Z79.1 Long term (current) use of non-steroidal anti-inflammatories (NSAID); Z79.84 Long term (current) use of oral hypoglycemic drugs; Z79.899 Other long term (current) drug therapy; Z88.0 Allergy status to penicillin; Z88.2 Allergy status to sulfonamides; Z88.5 Allergy status to narcotic agent; Z88.8 Allergy status to other drugs, medicaments and biological substances; Z82.49 Family history of ischemic heart disease and other diseases of the circulatory system; W22.01XA Walked into wall, initial encounter
CPT/HCPCS: 99283

== ENCOUNTER 2021-01-01 16:38 | Emergency (ER) | payer OTHER ==
[2021-01-01 16:49] VITALS: TEMP 98
[2021-01-01] MEDS ORDERED: METOCLOPRAMIDE 5 MG/ML 2 ML VIAL IM STA (17:13)
[2021-01-01] MEDS ORDERED: MECLIZINE 12.5 MG TAB PO STA (17:13)
--- NOTE | 2021-01-01 17:16 | ED ---
General Adult HPI - General Chief complaint: Headache Stated complaint: Dizziness Time Seen by Provider: 01/01/21 16:51 Source: patient, RN notes reviewed Mode of arrival: wheelchair Limitations: no limitations - History of Present Illness Initial comments: Patient is a pleasant 30-year-old female presenting to the emergency Department with complaints of chronic headaches. Patient states she also feels lightheaded with this. This headache started around 3 days ago and has progressively worsened since that time. Headache is similar to chronic headaches. Patient states she was recently at [facility] for pancreatitis however did not bring up her symptoms to them. No weakness. No fever. Patient has had previous brain CTs - Related Data Home Medications Medication Instructions Recorded Confirmed ARIPiprazole [Abilify] 7.5 mg PO HS 08/13/20 11/14/20 Fenofibrate Nanocrystallized 145 mg PO HS 11/06/20 11/14/20 [Fenofibrate] Montelukast Sodium [Singulair] 10 mg PO HS 11/06/20 11/14/20 Rimegepant Sulfate [Nurtec Odt] 75 mg PO DAILY PRN 11/06/20 11/14/20 tiZANidine HCL 4 mg PO BID PRN 11/06/20 11/14/20 Albuterol Sulfate [Proair Hfa] 1 - 2 puff INHALATION Q6HR PRN 11/11/20 11/14/20 Previous Rx's Medication Instructions Recorded Atorvastatin [Lipitor] 40 mg PO HS 30 Days tab 07/01/20 Buta/APAP/Caf/Cod [id number] 1 each PO Q8HR PRN cap 11/13/20 [Fioricet w/Cod 58-248-00-30MG] Melatonin 3 mg PO HS tablet 11/13/20 Naproxen [Naprosyn] 375 mg PO BID PRN tab 11/13/20 OLANZapine [ZyPREXA] 7.5 mg PO TID PRN tab 11/13/20 Pantoprazole [Protonix] 40 mg PO AC-BRKFST tablet. 11/13/20 QUEtiapine [SEROquel] 25 mg PO DAILY tab 11/13/20 QUEtiapine [SEROquel] 300 mg PO HS tab 11/13/20 SUMAtriptan succinate [Imitrex] 25 mg PO BID PRN tab 11/13/20 Topiramate [Topamax] 50 mg PO BID tab 11/13/20 busPIRone HCl [Buspar] 20 mg PO TID tab 11/13/20 metFORMIN HCL [Glucophage] 850 mg PO BID-W/MEALS tab 11/13/20 Metoprolol Tartrate [Lopressor] 12.5 mg PO DAILY #60 tab 11/16/20 Allergies Allergy/AdvReac Type Severity Reaction Status Date / Time bee pollen Allergy Severe Anaphylaxis Verified 01/01/21 16:49 haloperidol [From Haldol] Allergy Severe QUIT Verified 01/01/21 16:49 BREATHING haloperidol lactate Allergy Severe QUIT Verified 01/01/21 16:49 [From Haldol] BREATHING latex Allergy Severe RASH-THROAT Verified 01/01/21 16:49 CLOSES tramadol Allergy Severe Nausea & Verified 01/01/21 16:49 Vomiting murrieta Allergy Anaphylaxis Verified 01/01/21 16:49 coconut Allergy Anaphylaxis Verified 01/01/21 16:49 pineapple Allergy Anaphylaxis Verified 01/01/21 16:49 prednisone Allergy THROAT Verified 01/01/21 16:49 SWELLS spider venom Allergy Swelling Verified 01/01/21 16:49 Sulfa (Sulfonamide Allergy THROAT Verified 01/01/21 16:49 Antibiotics) SWELLS venom-wasp Allergy Swelling Verified 01/01/21 16:49 venom-wasp protein Allergy Swelling Verified 01/01/21 16:49 promethazine HCl AdvReac Severe Nausea & Verified 01/01/21 16:49 [From Phenergan] Vomiting amoxicillin AdvReac Nausea & Verified 01/01/21 16:49 Vomiting ANTS Allergy Mild Anaphylaxis Uncoded 01/01/21 16:49 Review of Systems ROS Statement: Those systems with pertinent positive or pertinent negative responses have been documented in the HPI. ROS Other: All systems not noted in ROS Statement are negative. Constitutional: Denies: fever Eyes: Denies: eye pain ENT: Denies: ear pain Respiratory: Denies: cough Cardiovascular: Denies: chest pain Endocrine: Denies: fatigue Gastrointestinal: Denies: abdominal pain Genitourinary: Denies: dysuria Musculoskeletal: Denies: back pain Skin: Denies: rash Neurological: Reports: as per HPI, headache Past Medical History Past Medical History: Asthma, Diabetes Mellitus, GERD/Reflux Additional Past Medical History / Comment(s): migraines, degenerative disk disease, endometriosis, lupus, pancreatitis, covid vaccine moderna History of Any Multi-Drug Resistant Organisms: None Reported Past Surgical History: Orthopedic Surgery Additional Past Surgical History / Comment(s): laparoscopc surgery for endometr iosis, cyst removed from left foot, EGD, Past Anesthesia/Blood Transfusion Reactions: Previous Problems w/ Anesthesia Additional Past Anesthesia/Blood Transfusion Reaction / Comment(s): hard to wake up for 48-72 hours after laparoscopic surgery-was in hosp. for 3 days Past Psychological History: Anxiety, Depression, PTSD Smoking Status: Vaper Past Alcohol Use History: None Reported Past Drug Use History: Marijuana - Past Family History Mother Family Medical History: No Reported History Additional Family Medical History / Comment(s): hx migraines Father Family Medical History: Coronary Artery Disease (CAD), Hypertension Additional Family Medical History / Comment(s): ddd, alcoholism & drug use General Exam Limitations: no limitations General appearance: alert, in no apparent distress Head exam: Present: atraumatic, normocephalic Eye exam: Present: normal appearance, PERRL, EOMI. Absent: nystagmus ENT exam: Present: normal oropharynx Neck exam: Present: normal inspection. Absent: tenderness Respiratory exam: Present: normal lung sounds bilaterally Cardiovascular Exam: Present: regular rate, normal rhythm GI/Abdominal exam: Present: soft. Absent: tenderness Extremities exam: Present: normal inspection Neurological exam: Present: alert, CN II-XII intact. Absent: motor sensory deficit Expanded Neurological exam: Present: protecting the airway Speech: Present: fluid speech Cranial nerves: EOM's Intact: Normal Cerebellar function: Finger to Nose: Normal Motor strength exam: RUE: 5, LUE: 5, RLE: 5, LLE: 5 Eye Response: (4) open spontaneously Motor Response: (6) obeys commands Verbal Response: (5) oriented Psychiatric exam: Present: normal affect, normal mood Skin exam: Present: normal color Course Vital Signs 01/01/21 01/01/21 16:46 16:49 Temperature 98 F Pulse Rate 99 Respiratory 15 Rate Blood Pressure 90/65 O2 Sat by Pulse 98 Oximetry Medical Decision Making - Medical Decision Making Patient reevaluated and does feel somewhat better. Patient does request further medication otherwise requests discharge. Disposition Clinical Impression: Chronic headache Disposition: HOME SELF-CARE Condition: Stable Instructions (If sedation given, give patient instructions): Acute Headache (ED) Additional Instructions: Please follow-up with your primary care physician in the next day or 2 for recheck. Return for fever, weakness or coordination problems, worsening or changing symptoms or other concerns. Is patient prescribed a controlled substance at d/c from ED?: No Referrals: Jorje Mayes MD [Primary Care Provider] - 1-2 days Time of Disposition: 18:20
[2021-01-01] MEDS ORDERED: KETOROLAC 15 MG/ML 1 ML VIAL IM STA (18:18)
[2021-01-01] MEDS ORDERED: diphenhydrAMINE 50 MG/ML 1 ML VIAL IM STA (18:18)
[2021-01-01 19:49] VITALS: BP 115/72; PULSE 95; RESP 18
== END 2021-01-01 20:22 | disposition home or self-care (01) ==
LOC: EC 16:38
DX: R51.9 Headache, unspecified (principal); E11.9 Type 2 diabetes mellitus without complications; J45.909 Unspecified asthma, uncomplicated; K21.9 Gastro-esophageal reflux disease without esophagitis; F41.9 Anxiety disorder, unspecified; F32.9 Major depressive disorder, single episode, unspecified; F43.12 Post-traumatic stress disorder, chronic; F17.290 Nicotine dependence, other tobacco product, uncomplicated; F12.90 Cannabis use, unspecified, uncomplicated; Z79.84 Long term (current) use of oral hypoglycemic drugs; Z88.0 Allergy status to penicillin; Z88.5 Allergy status to narcotic agent; Z88.1 Allergy status to other antibiotic agents; Z91.040 Latex allergy status; Z88.2 Allergy status to sulfonamides
CPT/HCPCS: 99283; 96372 ×3; J1200; J2765; J1885

== ENCOUNTER 2021-01-04 10:31 | Emergency (ER) | payer OTHER ==
[2021-01-04 10:46] VITALS: RESP 18; TEMP 98
[2021-01-04] MEDS ORDERED: MORPHINE SULFATE 4 MG/ML SYRINGE IV STA (11:01)
--- NOTE | 2021-01-04 11:05 | ED ---
General Adult HPI - General Chief complaint: Abdominal Pain Stated complaint: Abdominal Pain Time Seen by Provider: 01/04/21 10:49 Source: patient, family Mode of arrival: ambulatory Limitations: no limitations - History of Present Illness Initial comments: Dictation was produced using [employer] dictation software. please excuse any grammatical, word or spelling errors. Chief Complaint: 30-year-old female with right upper quadrant abdominal pain History of Present Illness: 30-year-old female she is well-known to emergency department for multiple visitations for myriad of complaints. This is patient's 11th visit in the last 5 weeks. Patient states that she has right upper quadrant pain that woke her up out of her sleep. She states she's been having pain for the last couple hours. Patient still has her gallbladder. Last that she eats pizza. Patient denies any fever. No nausea vomiting. Patient has a shortness of breath, no cough or chest pain. No diarrhea. The ROS documented in this emergency department record has been reviewed and confirmed by me. Those systems with pertinent positive or negative responses have been documented in the HPI. All other systems are other negative and/or noncontributory. PHYSICAL EXAM: General Impression: Alert and oriented x3, acute distress secondary to pain HEENT: Normocephalic atraumatic, extra-ocular movements intact, pupils equal and reactive to light bilaterally, mucous membranes moist. Cardiovascular: Heart regular rate and rhythm Chest: Able to complete full sentences, no retractions, no tachypnea Abdomen: abdomen soft, tenderness to the right upper quadrant, negative Velasquez sign. Musculoskeletal: Pulses present and equal in all extremities, no peripheral genesis ma Motor: no focal deficits noted Neurological: CN II-XII grossly intact, no focal motor or sensory deficits noted Skin: Intact with no visualized rashes Psych: Normal affect and mood ED course: 30-year-old female well-known to emergency department presents to the emergency department for right upper quadrant pain. Signs upon arrival are within acceptable limits. Patient does have some right upper quadrant tenderness to palpation. Laboratory evaluation obtained. CBC shows no leukocytosis. Metabolic panel is within acceptable limits. Slight bilirubin elevation. Before meals is 42. Lipase 453. Gallbladder ultrasound shows fatty liver. No evidence of acute cholecystitis This likely is symptoms of her pain. Patient told to follow up with primary care doctor. EKG interpretation: Ventricular rate 95, normal sinus rhythm, AZ interval 142, QRS 82, QTc 550. No AZ prolongation, no ST or T-wave changes noted. - Related Data Home Medications Medication Instructions Recorded Confirmed ARIPiprazole [Abilify] 7.5 mg PO HS 08/13/20 11/14/20 Fenofibrate Nanocrystallized 145 mg PO HS 11/06/20 11/14/20 [Fenofibrate] Montelukast Sodium [Singulair] 10 mg PO HS 11/06/20 11/14/20 Rimegepant Sulfate [Nurtec Odt] 75 mg PO DAILY PRN 11/06/20 11/14/20 tiZANidine HCL 4 mg PO BID PRN 11/06/20 11/14/20 Albuterol Sulfate [Proair Hfa] 1 - 2 puff INHALATION Q6HR PRN 11/11/20 11/14/20 Previous Rx's Medication Instructions Recorded Atorvastatin [Lipitor] 40 mg PO HS 30 Days tab 07/01/20 Buta/APAP/Caf/Cod [id number] 1 each PO Q8HR PRN cap 11/13/20 [Fioricet w/Cod 76-874-44-30MG] Melatonin 3 mg PO HS tablet 11/13/20 Naproxen [Naprosyn] 375 mg PO BID PRN tab 11/13/20 OLANZapine [ZyPREXA] 7.5 mg PO TID PRN tab 11/13/20 Pantoprazole [Protonix] 40 mg PO AC-BRKFST tablet. 11/13/20 QUEtiapine [SEROquel] 25 mg PO DAILY tab 11/13/20 QUEtiapine [SEROquel] 300 mg PO HS tab 11/13/20 SUMAtriptan succinate [Imitrex] 25 mg PO BID PRN tab 11/13/20 Topiramate [Topamax] 50 mg PO BID tab 11/13/20 busPIRone HCl [Buspar] 20 mg PO TID tab 11/13/20 metFORMIN HCL [Glucophage] 850 mg PO BID-W/MEALS tab 11/13/20 Metoprolol Tartrate [Lopressor] 12.5 mg PO DAILY #60 tab 11/16/20 Allergies Allergy/AdvReac Type Severity Reaction Status Date / Time bee pollen Allergy Severe Anaphylaxis Verified 01/04/21 10:45 haloperidol [From Haldol] Allergy Severe QUIT Verified 01/04/21 10:45 BREATHING haloperidol lactate Allergy Severe QUIT Verified 01/04/21 10:45 [From Haldol] BREATHING latex Allergy Severe RASH-THROAT Verified 01/04/21 10:45 CLOSES tramadol Allergy Severe Nausea & Verified 01/04/21 10:45 Vomiting murrieta Allergy Anaphylaxis Verified 01/04/21 10:45 coconut Allergy Anaphylaxis Verified 01/04/21 10:45 pineapple Allergy Anaphylaxis Verified 01/04/21 10:45 prednisone Allergy THROAT Verified 01/04/21 10:45 SWELLS spider venom Allergy Swelling Verified 01/04/21 10:45 Sulfa (Sulfonamide Allergy THROAT Verified 01/04/21 10:45 Antibiotics) SWELLS venom-wasp Allergy Swelling Verified 01/04/21 10:45 venom-wasp protein Allergy Swelling Verified 01/04/21 10:45 promethazine HCl AdvReac Severe Nausea & Verified 01/04/21 10:45 [From Phenergan] Vomiting amoxicillin AdvReac Nausea & Verified 01/04/21 10:45 Vomiting ANTS Allergy Mild Anaphylaxis Uncoded 01/01/21 16:49 Review of Systems ROS Statement: Those systems with pertinent positive or pertinent negative responses have been documented in the HPI. ROS Other: All systems not noted in ROS Statement are negative. Past Medical History Past Medical History: Asthma, Diabetes Mellitus, GERD/Reflux Additional Past Medical History / Comment(s): migraines, degenerative disk disease, endometriosis, lupus, pancreatitis, covid vaccine moderna History of Any Multi-Drug Resistant Organisms: None Reported Past Surgical History: Orthopedic Surgery Additional Past Surgical History / Comment(s): laparoscopc surgery for endometriosis, cyst removed from left foot, EGD, Past Anesthesia/Blood Transfusion Reactions: Previous Problems w/ Anesthesia Additional Past Anesthesia/Blood Transfusion Reaction / Comment(s): hard to wake up for 48-72 hours after laparoscopic surgery-was in hosp. for 3 days Past Psychological History: Anxiety, Depression, PTSD Smoking Status: Vaper Past Alcohol Use History: None Reported Past Drug Use History: Marijuana - Past Family History Mother Family Medical History: No Reported History Additional Family Medical History / Comment(s): hx migraines Father Family Medical History: Coronary Artery Disease (CAD), Hypertension Additional Family Medical History / Comment(s): ddd, alcoholism & drug use General Exam Limitations: no limitations Course Vital Signs 01/04/21 10:45 Temperature 98 F Pulse Rate 111 H Respiratory 18 Rate Blood Pressure 105/72 O2 Sat by Pulse 95 Oximetry Medical Decision Making - Lab Data Result diagrams: 01/04/21 13:11 01/04/21 13:11 Lab Results 01/04/21 01/04/21 Range/Units 13:11 13:11 WBC 4.6 (3.8-10.6) k/uL RBC 4.02 (3.80-5.40) m/uL Hgb 12.1 (11.4-16.0) gm/dL Hct 37.6 (34.0-46.0) % MCV 93.5 (80.0-100.0) fL MCH 30.0 (25.0-35.0) pg MCHC 32.1 (31.0-37.0) g/dL RDW 12.5 (11.5-15.5) % Plt Count 279 (150-450) k/uL MPV 7.6 Neutrophils % 42 % Lymphocytes % 47 % Monocytes % 6 % Eosinophils % 3 % Basophils % 1 % Neutrophils # 1.9 (1.3-7.7) k/uL Lymphocytes # 2.2 (1.0-4.8) k/uL Monocytes # 0.3 (0-1.0) k/uL Eosinophils # 0.1 (0-0.7) k/uL Basophils # 0.0 (0-0.2) k/uL Sodium 135 L (137-145) mmol/L Potassium 4.1 (3.5-5.1) mmol/L Chloride 103 (98-107) mmol/L Carbon Dioxide 22 (22-30) mmol/L Anion Gap 10 mmol/L BUN 12 (7-17) mg/dL Creatinine 0.83 (0.52-1.04) mg/dL Est GFR (CKD-EPI)AfAm >90 (>60 ml/min/1.73 sqM) Est GFR (CKD-EPI)NonAf >90 (>60 ml/min/1.73 sqM) Glucose 157 H (74-99) mg/dL Calcium 10.4 H (8.4-10.2) mg/dL Total Bilirubin 0.5 (0.2-1.3) mg/dL Conjugated Bilirubin 0.0 (0.0-0.3) mg/dL Unconjugated Bilirubin 0.1 (0.0-1.1) mg/dL Delta Bilirubin 0.4 H (0.0-0.2) mg/dL AST 42 H (14-36) U/L ALT 26 (4-34) U/L Alkaline Phosphatase 63 (38-126) U/L Total Protein 7.1 (6.3-8.2) g/dL Albumin 3.7 (3.5-5.0) g/dL Lipase 453 H (23-300) U/L Disposition Clinical Impression: Fatty liver Disposition: HOME SELF-CARE Condition: Good Instructions (If sedation given, give patient instructions): Abdominal Pain (ED) Is patient prescribed a controlled substance at d/c from ED?: No Referrals: Jorje Mayes MD [Primary Care Provider] - 1-2 days
--- NOTE | 2021-01-04 12:14 | US ---
EXAMINATION TYPE: US gallbladder DATE OF EXAM: 01/04/2021 COMPARISON: Multiple CT's and US's CLINICAL HISTORY: ruq pain. EXAM MEASUREMENTS: Liver Length: 17.3 cm Gallbladder Wall: 0.2 cm CBD: 0.4 cm Right Kidney: 11.1 x 4.3 x 5.8 cm Pancreas: visualized portions wnl Liver: difficult to penetrate, measures upper limits of normal. Gallbladder: appears somewhat contracted, no stones seen Evidence for sonographic Velasquez's sign: Yes CBD: wnl Right Kidney: No hydronephrosis or masses seen IMPRESSION: Hepatic steatosis.
[2021-01-04 13:22] LABS: Basophils % (A) 1 %; Eosinophils # (A) 0.1 k/uL (0-0.7); Eosinophils % (A) 3 %; HCT 37.6 % (34.0-46.0); HGB 12.1 gm/dL (11.4-16.0); Lymphocytes # (A) 2.2 k/uL (1.0-4.8); Lymphocytes % (A) 47 %; MCHC 32.1 g/dL (31.0-37.0); MCV 93.5 fL (80.0-100.0); Mean Platelet Volume 7.6; Monocytes # (A) 0.3 k/uL (0-1.0); Monocytes % (A) 6 %; Neutrophils # (A) 1.9 k/uL (1.3-7.7); Neutrophils % (A) 42 %; Platelet Count 279 k/uL (150-450); RBC 4.02 m/uL (3.80-5.40); RDW 12.5 % (11.5-15.5); WBC 4.6 k/uL (3.8-10.6)
[2021-01-04 13:34] LABS: ALT 26 U/L (4-34); AST 42 U/L (14-36); African American GFR (CKD) >90 (>60 ml/min/1.73 sqM); Albumin 3.7 g/dL (3.5-5.0); Alkaline Phosphatase 63 U/L (38-126); Anion Gap 10 mmol/L; Bilirubin, Delta 0.4 mg/dL (0.0-0.2); Bilirubin,Unconjugated 0.1 mg/dL (0.0-1.1); Blood Urea Nitrogen 12 mg/dL (7-17); Calcium 10.4 mg/dL (8.4-10.2); Carbon Dioxide 22 mmol/L (22-30); Chloride 103 mmol/L (98-107); Glucose 157 mg/dL (74-99); Lipase 453 U/L (23-300); Non-African American GFR(CKD) >90 (>60 ml/min/1.73 sqM); Potassium 4.1 mmol/L (3.5-5.1); Sodium 135 mmol/L (137-145); Total Bilirubin 0.5 mg/dL (0.2-1.3); Total Protein 7.1 g/dL (6.3-8.2)
[2021-01-04 13:50] LABS: HCG,Quantitative Serum <2.4 mIU/mL
[2021-01-04] MEDS ORDERED: HYDROmorphone 0.5 MG/0.5 ML SYRINGE IVP STA (13:55)
[2021-01-04 14:22] VITALS: BP 106/66; PULSE 85
== END 2021-01-04 14:11 | disposition home or self-care (01) ==
LOC: EC 10:31
DX: K76.0 Fatty (change of) liver, not elsewhere classified (principal); J45.909 Unspecified asthma, uncomplicated; F41.9 Anxiety disorder, unspecified; E11.9 Type 2 diabetes mellitus without complications; F32.9 Major depressive disorder, single episode, unspecified; F43.10 Post-traumatic stress disorder, unspecified; G43.909 Migraine, unspecified, not intractable, without status migrainosus; F12.90 Cannabis use, unspecified, uncomplicated; F17.290 Nicotine dependence, other tobacco product, uncomplicated; Z79.84 Long term (current) use of oral hypoglycemic drugs; K21.9 Gastro-esophageal reflux disease without esophagitis; Z79.51 Long term (current) use of inhaled steroids
CPT/HCPCS: 36415; 93005; 80053; 82248; 83690; 85025; 84702; 76705; 99284; 96374; 96375; J2270; J1170

== ENCOUNTER 2021-01-06 16:01 | Emergency (ER) | payer OTHER ==
[2021-01-06 16:47] VITALS: RESP 18; TEMP 98.5
[2021-01-06] MEDS ORDERED: ONDANSETRON 4 MG/2 ML VIAL IVP STA (17:42)
[2021-01-06] MEDS ORDERED: SODIUM CHLORIDE 0.9% 1,000 ML IV STA (17:42)
[2021-01-06] MEDS ORDERED: diphenhydrAMINE 50 MG/ML 1 ML VIAL IVP STA (17:43)
[2021-01-06 20:45] LABS: Basophils # (A) 0.1 k/uL (0-0.2); Basophils % (A) 1 %; Eosinophils # (A) 0.2 k/uL (0-0.7); Eosinophils % (A) 3 %; HCT 38.8 % (34.0-46.0); Lymphocytes % (A) 29 %; MCH 30.5 pg (25.0-35.0); MCHC 33.5 g/dL (31.0-37.0); MCV 91.2 fL (80.0-100.0); Mean Platelet Volume 7.7; Monocytes # (A) 0.3 k/uL (0-1.0); Monocytes % (A) 4 %; Neutrophils # (A) 4.5 k/uL (1.3-7.7); Neutrophils % (A) 63 %; Platelet Count 380 k/uL (150-450); RBC 4.26 m/uL (3.80-5.40); RDW 12.3 % (11.5-15.5); WBC 7.1 k/uL (3.8-10.6)
[2021-01-06] MEDS: HYDROmorphone 0.5 MG/0.5 ML SYRINGE IVP STA ×2 (20:55→21:04)
[2021-01-06 20:57] LABS: ALT 36 U/L (4-34); AST 54 U/L (14-36); African American GFR (CKD) >90 (>60 ml/min/1.73 sqM); Albumin 4.5 g/dL (3.5-5.0); Alkaline Phosphatase 66 U/L (38-126); Anion Gap 12 mmol/L; Blood Urea Nitrogen 10 mg/dL (7-17); Calcium 10.8 mg/dL (8.4-10.2); Carbon Dioxide 22 mmol/L (22-30); Chloride 102 mmol/L (98-107); Glucose 122 mg/dL (74-99); Non-African American GFR(CKD) >90 (>60 ml/min/1.73 sqM); Potassium 4.4 mmol/L (3.5-5.1); Sodium 136 mmol/L (137-145); Total Bilirubin 0.6 mg/dL (0.2-1.3); Total Protein 8.4 g/dL (6.3-8.2)
--- NOTE | 2021-01-06 21:12 | ED ---
Arrhythmia/Palpitations HPI - General Chief Complaint: Arrhythmia/Palpitations Stated Complaint: Chest Palitation Time Seen by Provider: 01/06/21 17:35 Source: patient, RN notes reviewed Mode of arrival: ambulatory Limitations: no limitations - History of Present Illness Initial Comments: Patient is a 30-year-old female that presents to emergency department complaining of migraine headache. She notes that this is her typical migraine but she is having some anxiety causing her heart to feel like it is pounding out of her chest. She noted she called her neurologist today in the cannot get her into January 10. She was otherwise in no apparent distress or pain mostly in bed during exam and interview. She denied any new symptoms at this time. She did note that she does have her same photophobia and phonophobia. She denied any chest pain shortness of breath nausea vomiting diarrhea constipation fever fatigue chills. - Related Data Home Medications Medication Instructions Recorded Confirmed ARIPiprazole [Abilify] 7.5 mg PO HS 08/13/20 01/06/21 Fenofibrate Nanocrystallized 145 mg PO HS 11/06/20 01/06/21 [Fenofibrate] Rimegepant Sulfate [Nurtec Odt] 75 mg PO DAILY PRN 11/06/20 01/06/21 tiZANidine HCL 4 mg PO BID PRN 11/06/20 01/06/21 Albuterol Sulfate [Proair Hfa] 1 - 2 puff INHALATION RT-Q6H PRN 11/11/20 01/06/21 Doxepin HCl [SINEquan] 150 mg PO HS 01/06/21 01/06/21 Fluticasone Nasal [place] [Flonase 2 spr EA NOSTRIL DAILY PRN 01/06/21 01/06/21 Nasal [place]] Nystatin [Nystop] 1 applic TOPICAL BID PRN 01/06/21 01/06/21 PARoxetine HCL [Paxil] 10 mg PO DAILY 01/06/21 01/06/21 Pioglitazone HCl 15 mg PO DAILY 01/06/21 01/06/21 busPIRone HCL 15 mg PO TID 01/06/21 01/06/21 clonazePAM [KlonoPIN] 0.5 mg PO Q7D PRN 01/06/21 01/06/21 hydrOXYzine pamoate [Vistaril] 50 mg PO QID PRN 01/06/21 01/06/21 Previous Rx's Medication Instructions Recorded Melatonin 3 mg PO HS tablet 11/13/20 QUEtiapine [SEROquel] 25 mg PO DAILY tab 11/13/20 QUEtiapine [SEROquel] 300 mg PO HS tab 11/13/20 Topiramate [Topamax] 50 mg PO BID tab 11/13/20 Metoprolol Tartrate [Lopressor] 12.5 mg PO DAILY #60 tab 11/16/20 Allergies Allergy/AdvReac Type Severity Reaction Status Date / Time bee pollen Allergy Severe Anaphylaxis Verified 01/06/21 20:37 haloperidol [From Haldol] Allergy Severe QUIT Verified 01/06/21 20:37 BREATHING haloperidol lactate Allergy Severe QUIT Verified 01/06/21 20:37 [From Haldol] BREATHING latex Allergy Severe RASH-THROAT Verified 01/06/21 20:37 CLOSES tramadol Allergy Severe Nausea & Verified 01/06/21 20:37 Vomiting [place] Allergy Anaphylaxis Verified 01/06/21 20:37 coconut Allergy Anaphylaxis Verified 01/06/21 20:37 pineapple Allergy Anaphylaxis Verified 01/06/21 20:37 prednisone Allergy THROAT Verified 01/06/21 20:37 SWELLS spider venom Allergy Swelling Verified 01/06/21 20:37 Sulfa (Sulfonamide Allergy THROAT Verified 01/06/21 20:37 Antibiotics) SWELLS venom-wasp Allergy Swelling Verified 01/06/21 20:37 venom-wasp protein Allergy Swelling Verified 01/06/21 20:37 promethazine HCl AdvReac Severe Nausea & Verified 01/06/21 20:37 [From Phenergan] Vomiting amoxicillin AdvReac Nausea & Verified 01/06/21 20:37 Vomiting ANTS Allergy Mild Anaphylaxis Uncoded 01/06/21 20:37 Review of Systems ROS Statement: Those systems with pertinent positive or pertinent negative responses have been documented in the HPI. ROS Other: All systems not noted in ROS Statement are negative. Past Medical History Past Medical History: Asthma, Diabetes Mellitus, GERD/Reflux Additional Past Medical History / Comment(s): migraines, degenerative disk disease, endometriosis, lupus, pancreatitis, covid vaccine moderna History of Any Multi-Drug Resistant Organisms: None Reported Past Surgical History: Orthopedic Surgery Additional Past Surgical History / Comment(s): laparoscopc surgery for endometriosis, cyst removed from left foot, EGD, Past Anesthesia/Blood Transfusion Reactions: Previous Problems w/ Anesthesia Additional Past Anesthesia/Blood Transfusion Reaction / Comment(s): hard to wake up for 48-72 hours after laparoscopic surgery-was in hosp. for 3 days Past Psychological History: Anxiety, Depression, PTSD Smoking Status: Vaper Past Alcohol Use History: None Reported Past Drug Use History: Marijuana - Past Family History Mother Family Medical History: No Reported History Additional Family Medical History / Comment(s): hx migraines Father Family Medical History: Coronary Artery Disease (CAD), Hypertension Additional Family Medical History / Comment(s): ddd, alcoholism & drug use General Exam Limitations: no limitations General appearance: alert, in no apparent distress Head exam: Present: atraumatic, normocephalic, normal inspection Eye exam: Present: normal appearance, PERRL, EOMI. Absent: scleral icterus, conjunctival injection, periorbital swelling ENT exam: Present: normal exam, mucous membranes moist Neck exam: Present: normal inspection Respiratory exam: Present: normal lung sounds bilaterally. Absent: respiratory distress, wheezes, rales, rhonchi, stridor Cardiovascular Exam: Present: regular rate, normal rhythm, normal heart sounds. Absent: systolic murmur, diastolic murmur, rubs, gallop, clicks GI/Abdominal exam: Present: soft, normal bowel sounds. Absent: distended, tenderness, guarding, rebound, rigid Extremities exam: Present: normal inspection, full ROM, normal capillary refill. Absent: tenderness, pedal edema, joint swelling, calf tenderness Neurological exam: Present: alert, oriented X3 Psychiatric exam: Present: normal affect, normal mood Skin exam: Present: warm, dry, intact, normal color. Absent: rash Course Vital Signs 01/06/21 01/06/21 16:45 21:11 Temperature 98.5 F Pulse Rate 135 H 123 H Respiratory 18 18 Rate Blood Pressure 141/92 127/87 O2 Sat by Pulse 97 94 L Oximetry EKG Findings - EKG Comments: EKG Findings:: Ventricular rate 110 bpm, ME interval 148 ms, QRS duration 80 ms, QTC 462 ms, PRT axis 29/82/-7. Sinus Tachycardia and Nonspecific T-Wave Abnormality, Abnormal ECG. Medical Decision Making - Medical Decision Making 30-year-old female complaining of typical migraine and palpitations. Labs, EKG, case monitor, 1 L normal saline, 4 mg of Zofran, 1 mg of Dilaudid, 5 g Benadryl ordered. EKG similar to previous ones. Labs unremarkable. Upon reevaluation patient is feeling better and is ready to go home with vital signs stable condition. Case discussed with Dr. Peña, patient discharge home. - Lab Data Result diagrams: 01/06/21 19:20 01/06/21 19:20 Lab Results 01/06/21 01/06/21 Range/Units 19:20 19:20 WBC 7.1 (3.8-10.6) k/uL RBC 4.26 (3.80-5.40) m/uL Hgb 13.0 (11.4-16.0) gm/dL Hct 38.8 (34.0-46.0) % MCV 91.2 (80.0-100.0) fL MCH 30.5 (25.0-35.0) pg MCHC 33.5 (31.0-37.0) g/dL RDW 12.3 (11.5-15.5) % Plt Count 380 (150-450) k/uL MPV 7.7 Neutrophils % 63 % Lymphocytes % 29 % Monocytes % 4 % Eosinophils % 3 % Basophils % 1 % Neutrophils # 4.5 (1.3-7.7) k/uL Lymphocytes # 2.0 (1.0-4.8) k/uL Monocytes # 0.3 (0-1.0) k/uL Eosinophils # 0.2 (0-0.7) k/uL Basophils # 0.1 (0-0.2) k/uL Sodium 136 L (137-145) mmol/L Potassium 4.4 (3.5-5.1) mmol/L Chloride 102 (98-107) mmol/L Carbon Dioxide 22 (22-30) mmol/L Anion Gap 12 mmol/L BUN 10 (7-17) mg/dL Creatinine 0.70 (0.52-1.04) mg/dL Est GFR (CKD-EPI)AfAm >90 (>60 ml/min/1.73 sqM) Est GFR (CKD-EPI)NonAf >90 (>60 ml/min/1.73 sqM) Glucose 122 H (74-99) mg/dL Calcium 10.8 H (8.4-10.2) mg/dL Total Bilirubin 0.6 (0.2-1.3) mg/dL AST 54 H (14-36) U/L ALT 36 H (4-34) U/L Alkaline Phosphatase 66 (38-126) U/L Total Protein 8.4 H (6.3-8.2) g/dL Albumin 4.5 (3.5-5.0) g/dL - EKG Data -: EKG Interpreted by Me EKG shows normal: sinus rhythm Rate: normal EKG Comments: Ventricular rate 110 bpm, ME interval 148 ms, QRS duration 80 ms, QTC 462 ms, PRT axis 29/82/-7. Sinus Tachycardia and Nonspecific T-Wave Abnormality, Abnormal ECG. Disposition Clinical Impression: Migraine headache, Sinus tachycardia Disposition: HOME SELF-CARE Condition: Stable Instructions (If sedation given, give patient instructions): Heart Palpitations (ED) Additional Instructions: Please return to the Emergency Department if symptoms worsen or any other concerns. Follow-up with neurologist on the first as planned. Take at home medications as prescribed. Is patient prescribed a controlled substance at d/c from ED?: No Referrals: Jorje Mayes MD [Primary Care Provider] - 1-2 days Time of Disposition: 22:07
[2021-01-06] MEDS ORDERED: HYDROmorphone 1 MG/ML 1 ML SYRINGE IVP STA (21:47)
[2021-01-06 22:58] VITALS: BP 113/69; PULSE 114
== END 2021-01-06 22:56 | disposition home or self-care (01) ==
LOC: EC 16:01
DX: G43.909 Migraine, unspecified, not intractable, without status migrainosus (principal); R00.0 Tachycardia, unspecified; F41.9 Anxiety disorder, unspecified; E11.9 Type 2 diabetes mellitus without complications; K21.9 Gastro-esophageal reflux disease without esophagitis; J45.909 Unspecified asthma, uncomplicated; F32.9 Major depressive disorder, single episode, unspecified; F43.12 Post-traumatic stress disorder, chronic; F17.200 Nicotine dependence, unspecified, uncomplicated; F12.90 Cannabis use, unspecified, uncomplicated; Z88.0 Allergy status to penicillin; Z88.1 Allergy status to other antibiotic agents; Z88.2 Allergy status to sulfonamides; Z88.5 Allergy status to narcotic agent; Z91.040 Latex allergy status
CPT/HCPCS: 99285; 96374; 96375 ×2; 96376; 96361; 36415; 93005; 80053; 85025; J1200; J2405; J1170 ×2

== ENCOUNTER 2021-01-08 12:44 | Emergency (ER) | payer OTHER ==
[2021-01-08 13:20] VITALS: TEMP 98.4
[2021-01-08] MEDS ORDERED: ONDANSETRON 4 MG/2 ML VIAL IVP STA (14:50)
[2021-01-08] MEDS ORDERED: DICYCLOMINE 10 MG/ML 2 ML AMP IM STA (14:50)
[2021-01-08] MEDS ORDERED: SODIUM CHLORIDE 0.9% 1,000 ML IV STA (14:50)
[2021-01-08] MEDS ORDERED: FAMOTIDINE 20 MG/2 ML VIAL IV STA (14:51)
--- NOTE | 2021-01-08 14:53 | ED ---
General Adult HPI - General Chief complaint: Nausea/Vomiting/Diarrhea Stated complaint: Vomiting Time Seen by Provider: 01/08/21 14:35 Source: patient, RN notes reviewed, old records reviewed Mode of arrival: wheelchair Limitations: no limitations - History of Present Illness Initial comments: Patient is a pleasant 30-year-old female presenting to the emergency Department with vomiting. Onset of symptoms was 2 days ago. Patient still has nausea. Rodger royal woke up today with some abdominal discomfort. Abdominal discomfort is epigastric or right upper. Patient states she has had similar discomfort at least 8 times previously. 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 No diarrhea. No fevers. - Related Data Home Medications Medication Instructions Recorded Confirmed ARIPiprazole [Abilify] 7.5 mg PO HS 08/13/20 01/06/21 Fenofibrate Nanocrystallized 145 mg PO HS 11/06/20 01/06/21 [Fenofibrate] Rimegepant Sulfate [Nurtec Odt] 75 mg PO DAILY PRN 11/06/20 01/06/21 tiZANidine HCL 4 mg PO BID PRN 11/06/20 01/06/21 Albuterol Sulfate [Proair Hfa] 1 - 2 puff INHALATION RT-Q6H PRN 11/11/20 01/06/21 Doxepin HCl [SINEquan] 150 mg PO HS 01/06/21 01/06/21 Fluticasone Nasal [place] [Flonase 2 spr EA NOSTRIL DAILY PRN 01/06/21 01/06/21 Nasal [place]] Nystatin [Nystop] 1 applic TOPICAL BID PRN 01/06/21 01/06/21 PARoxetine HCL [Paxil] 10 mg PO DAILY 01/06/21 01/06/21 Pioglitazone HCl 15 mg PO DAILY 01/06/21 01/06/21 busPIRone HCL 15 mg PO TID 01/06/21 01/06/21 clonazePAM [KlonoPIN] 0.5 mg PO Q7D PRN 01/06/21 01/06/21 hydrOXYzine pamoate [Vistaril] 50 mg PO QID PRN 01/06/21 01/06/21 Previous Rx's Medication Instructions Recorded Melatonin 3 mg PO HS tablet 11/13/20 QUEtiapine [SEROquel] 25 mg PO DAILY tab 11/13/20 QUEtiapine [SEROquel] 300 mg PO HS tab 11/13/20 Topiramate [Topamax] 50 mg PO BID tab 11/13/20 Metoprolol Tartrate [Lopressor] 12.5 mg PO DAILY #60 tab 11/16/20 Allergies Allergy/AdvReac Type Severity Reaction Status Date / Time bee pollen Allergy Severe Anaphylaxis Verified 01/08/21 13:16 haloperidol [From Haldol] Allergy Severe QUIT Verified 01/08/21 13:16 BREATHING haloperidol lactate Allergy Severe QUIT Verified 01/08/21 13:16 [From Haldol] BREATHING latex Allergy Severe RASH-THROAT Verified 01/08/21 13:16 CLOSES tramadol Allergy Severe Nausea & Verified 01/08/21 13:16 Vomiting [place] Allergy Anaphylaxis Verified 01/08/21 13:16 coconut Allergy Anaphylaxis Verified 01/08/21 13:16 pineapple Allergy Anaphylaxis Verified 01/08/21 13:16 prednisone Allergy THROAT Verified 01/08/21 13:16 SWELLS spider venom Allergy Swelling Verified 01/08/21 13:16 Sulfa (Sulfonamide Allergy THROAT Verified 01/08/21 13:16 Antibiotics) SWELLS venom-wasp Allergy Swelling Verified 01/08/21 13:16 venom-wasp protein Allergy Swelling Verified 01/08/21 13:16 promethazine HCl AdvReac Severe Nausea & Verified 01/08/21 13:16 [From Phenergan] Vomiting amoxicillin AdvReac Nausea & Verified 01/08/21 13:16 Vomiting ANTS Allergy Mild Anaphylaxis Uncoded 01/08/21 13:16 Review of Systems ROS Statement: Those systems with pertinent positive or pertinent negative responses have been documented in the HPI. ROS Other: All systems not noted in ROS Statement are negative. Constitutional: Denies: fever Eyes: Denies: eye pain ENT: Denies: ear pain Respiratory: Denies: cough Cardiovascular: Denies: chest pain Endocrine: Denies: as per HPI Gastrointestinal: Reports: as per HPI, abdominal pain, nausea, vomiting. Denies: diarrhea Genitourinary: Denies: dysuria Musculoskeletal: Denies: back pain Skin: Denies: rash Neurological: Denies: weakness Past Medical History Past Medical History: Asthma, Diabetes Mellitus, GERD/Reflux Additional Past Medical History / Comment(s): migraines, degenerative disk disease, endometriosis, lupus, pancreatitis, covid vaccine moderna History of Any Multi-Drug Resistant Organisms: None Reported Past Surgical History: Orthopedic Surgery Additional Past Surgical History / Comment(s): laparoscopc surgery for endometriosis, cyst removed from left foot, EGD, Past Anesthesia/Blood Transfusion Reactions: Previous Problems w/ Anesthesia Additional Past Anesthesia/Blood Transfusion Reaction / Comment(s): hard to wake up for 48-72 hours after laparoscopic surgery-was in hosp. for 3 days Past Psychological History: Anxiety, Depression, PTSD Smoking Status: Vaper Past Alcohol Use History: None Reported Past Drug Use History: Marijuana - Past Family History Mother Family Medical History: No Reported History Additional Family Medical History / Comment(s): hx migraines Father Family Medical History: Coronary Artery Disease (CAD), Hypertension Additional Family Medical History / Comment(s): ddd, alcoholism & drug use General Exam Limitations: no limitations General appearance: alert, in no apparent distress Head exam: Present: normocephalic Eye exam: Present: normal appearance Neck exam: Present: normal inspection Respiratory exam: Present: normal lung sounds bilaterally Cardiovascular Exam: Present: regular rate, normal rhythm Expanded Peripheral pulses: 2+: Posterior Tibialis (R), Posterior Tibialis (L) GI/Abdominal exam: Present: soft, tenderness (Mild epigastric and right upper quadrant tenderness), diminished bowel sounds. Absent: distended, guarding, rebound, rigid, pulsatile mass Extremities exam: Present: normal inspection Neurological exam: Present: alert Psychiatric exam: Present: normal affect, normal mood Skin exam: Present: normal color Course Vital Signs 01/08/21 13:18 Temperature 98.4 F Pulse Rate 132 H Respiratory 20 Rate Blood Pressure 116/73 O2 Sat by Pulse 99 Oximetry - Reevaluation(s) Reevaluation #1: 01/08/21 17:14 Patient reevaluated and stating nausea has resolved but still having some disco mfort. Patient states this is a chronic problem for her and has probably had over a dozen CT scans for this. Patient does not feel she needs another CAT scan. Medical Decision Making - Medical Decision Making Patient feels much better following GI cocktail and requests discharge home. - Lab Data Result diagrams: 01/08/21 16:05 01/08/21 16:05 Lab Results 09/29/21 09/29/21 09/29/21 Range/Units 16:05 16:05 16:05 WBC 5.2 (3.8-10.6) k/uL RBC 3.99 (3.80-5.40) m/uL Hgb 12.2 (11.4-16.0) gm/dL Hct 36.9 (34.0-46.0) % MCV 92.4 (80.0-100.0) fL MCH 30.6 (25.0-35.0) pg MCHC 33.2 (31.0-37.0) g/dL RDW 12.6 (11.5-15.5) % Plt Count 348 (150-450) k/uL MPV 7.6 Neutrophils % 56 % Lymphocytes % 32 % Monocytes % 6 % Eosinophils % 3 % Basophils % 1 % Neutrophils # 3.0 (1.3-7.7) k/uL Lymphocytes # 1.7 (1.0-4.8) k/uL Monocytes # 0.3 (0-1.0) k/uL Eosinophils # 0.2 (0-0.7) k/uL Basophils # 0.0 (0-0.2) k/uL PT 10.6 (9.0-12.0) sec INR 1.0 (<1.2) APTT 19.3 L (22.0-30.0) sec Sodium (137-145) mmol/L Potassium (3.5-5.1) mmol/L Chloride (98-107) mmol/L Carbon Dioxide (22-30) mmol/L Anion Gap mmol/L BUN (7-17) mg/dL Creatinine (0.52-1.04) mg/dL Est GFR (CKD-EPI)AfAm (>60 ml/min/1.73 sqM) Est GFR (CKD-EPI)NonAf (>60 ml/min/1.73 sqM) Glucose (74-99) mg/dL Calcium (8.4-10.2) mg/dL Total Bilirubin (0.2-1.3) mg/dL AST (14-36) U/L ALT (4-34) U/L Alkaline Phosphatase (38-126) U/L Total Protein (6.3-8.2) g/dL Albumin (3.5-5.0) g/dL Amylase (30-110) U/L Lipase (23-300) U/L Urine Color Light Yellow Urine Appearance Cloudy H (Clear) Urine pH 6.0 (5.0-8.0) Ur Specific [place] 1.006 (1.001-1.035) Urine Protein Negative (Negative) Urine Glucose (UA) Negative (Negative) Urine Ketones Negative (Negative) Urine Blood Negative (Negative) Urine Nitrite Negative (Negative) Urine Bilirubin Negative (Negative) Urine Urobilinogen <2.0 (<2.0) mg/dL Ur Leukocyte Esterase Negative (Negative) Urine RBC 1 (0-5) /hpf Urine WBC 1 (0-5) /hpf Ur Squamous Epith Cells 3 (0-4) /hpf Urine Bacteria Occasional H (None) /hpf Urine Mucus Rare H (None) /hpf 01/08/21 Range/Units 16:05 WBC (3.8-10.6) k/uL RBC (3.80-5.40) m/uL Hgb (11.4-16.0) gm/dL Hct (34.0-46.0) % MCV (80.0-100.0) fL MCH (25.0-35.0) pg MCHC (31.0-37.0) g/dL RDW (11.5-15.5) % Plt Count (150-450) k/uL MPV Neutrophils % % Lymphocytes % % Monocytes % % Eosinophils % % Basophils % % Neutrophils # (1.3-7.7) k/uL Lymphocytes # (1.0-4.8) k/uL Monocytes # (0-1.0) k/uL Eosinophils # (0-0.7) k/uL Basophils # (0-0.2) k/uL PT (9.0-12.0) sec INR (<1.2) APTT (22.0-30.0) sec Sodium 135 L (137-145) mmol/L Potassium 4.5 (3.5-5.1) mmol/L Chloride 102 (98-107) mmol/L Carbon Dioxide 26 (22-30) mmol/L Anion Gap 7 mmol/L BUN 6 L (7-17) mg/dL Creatinine 0.75 (0.52-1.04) mg/dL Est GFR (CKD-EPI)AfAm >90 (>60 ml/min/1.73 sqM) Est GFR (CKD-EPI)NonAf >90 (>60 ml/min/1.73 sqM) Glucose 145 H (74-99) mg/dL Calcium 10.4 H (8.4-10.2) mg/dL Total Bilirubin 0.5 (0.2-1.3) mg/dL AST 121 H (14-36) U/L ALT 63 H (4-34) U/L Alkaline Phosphatase 55 (38-126) U/L Total Protein 7.5 (6.3-8.2) g/dL Albumin 4.0 (3.5-5.0) g/dL Amylase 45 (30-110) U/L Lipase 271 (23-300) U/L Urine Color Urine Appearance (Clear) Urine pH (5.0-8.0) Ur Specific [place] (1.001-1.035) Urine Protein (Negative) Urine Glucose (UA) (Negative) Urine Ketones (Negative) Urine Blood (Negative) Urine Nitrite (Negative) Urine Bilirubin (Negative) Urine Urobilinogen (<2.0) mg/dL Ur Leukocyte Esterase (Negative) Urine RBC (0-5) /hpf Urine WBC (0-5) /hpf Ur Squamous Epith Cells (0-4) /hpf Urine Bacteria (None) /hpf Urine Mucus (None) /hpf Disposition Clinical Impression: Nausea & vomiting, Abdominal pain Disposition: HOME SELF-CARE Condition: Stable Instructions (If sedation given, give patient instructions): Abdominal Pain (ED), Acute Nausea and Vomiting (ED) Additional Instructions: Please do follow-up with your primary care physician in the next day or 2 for recheck. Return for not tolerating fluids, increased pain, fever, worsening or changing symptoms or other concerns. Is patient prescribed a controlled substance at d/c from ED?: No Referrals: Jorje Mayes MD [Primary Care Provider] - 1-2 days Time of Disposition: 18:00
[2021-01-08 16:12] LABS: Basophils % (A) 1 %; Eosinophils # (A) 0.2 k/uL (0-0.7); Eosinophils % (A) 3 %; HCT 36.9 % (34.0-46.0); HGB 12.2 gm/dL (11.4-16.0); Lymphocytes # (A) 1.7 k/uL (1.0-4.8); Lymphocytes % (A) 32 %; MCH 30.6 pg (25.0-35.0); MCHC 33.2 g/dL (31.0-37.0); MCV 92.4 fL (80.0-100.0); Mean Platelet Volume 7.6; Monocytes # (A) 0.3 k/uL (0-1.0); Monocytes % (A) 6 %; Neutrophils % (A) 56 %; Platelet Count 348 k/uL (150-450); RBC 3.99 m/uL (3.80-5.40); RDW 12.6 % (11.5-15.5); WBC 5.2 k/uL (3.8-10.6)
[2021-01-08 16:20] LABS: Appearance,Urine Cloudy (Clear); Bacteria,Urine Occasional /hpf; Bilirubin,Urine Negative (Negative); Blood,Urine Negative (Negative); Color,Urine Light Yellow; Glucose,Urine (UA) Negative (Negative); Ketones,Urine Negative (Negative); Leukocyte Esterase,Urine Negative (Negative); Mucus,Urine Rare /hpf; Nitrite,Urine Negative (Negative); Protein,Urine Negative (Negative); RBC,Urine 1 /hpf (0-5); Specific Gravity,Urine 1.006 (1.001-1.035); Squamous Epithelial Cell,Urine 3 /hpf (0-4); Urobilinogen,Urine <2.0 mg/dL (<2.0); WBC,Urine 1 /hpf (0-5)
[2021-01-08 16:27] LABS: Prothrombin Time 10.6 sec (9.0-12.0)
[2021-01-08 16:30] LABS: Partial Thromboplastin Time 19.3 sec (22.0-30.0)
--- NOTE | 2021-01-08 16:30 | XR ---
EXAMINATION TYPE: XR KUB DATE OF EXAM: 01/08/2021 COMPARISON: 08/11/2020 HISTORY: Abdomen pain and vomiting history of pancreatitis TECHNIQUE: Abdomen is examined in the upright view FINDINGS: Psoas margins are normal. Normal colonic bowel gas is present. No free air is evident. No d ifferential air-fluid levels are evident. No mass effect is evident. No suspicious calcifications. Os seous structures are normal. IMPRESSION: 1. Normal abdomen
[2021-01-08 16:39] LABS: ALT 63 U/L (4-34); AST 121 U/L (14-36); African American GFR (CKD) >90 (>60 ml/min/1.73 sqM); Alkaline Phosphatase 55 U/L (38-126); Amylase 45 U/L (30-110); Anion Gap 7 mmol/L; Blood Urea Nitrogen 6 mg/dL (7-17); Calcium 10.4 mg/dL (8.4-10.2); Carbon Dioxide 26 mmol/L (22-30); Chloride 102 mmol/L (98-107); Glucose 145 mg/dL (74-99); Lipase 271 U/L (23-300); Non-African American GFR(CKD) >90 (>60 ml/min/1.73 sqM); Potassium 4.5 mmol/L (3.5-5.1); Sodium 135 mmol/L (137-145); Total Bilirubin 0.5 mg/dL (0.2-1.3); Total Protein 7.5 g/dL (6.3-8.2)
[2021-01-08] MEDS ORDERED: MAG HYDROX/AL HYDROX/SIMETH 30 ML, HYOSCYAMINE ELIXIR 10 ML, LIDOCAINE VISCOUS 2% 10 ML PO STA ×3 (17:13)
[2021-01-08 18:28] VITALS: BP 139/85; PULSE 98; RESP 18
== END 2021-01-08 18:27 | disposition home or self-care (01) ==
LOC: EC 12:44
DX: R10.11 Right upper quadrant pain (principal); R11.2 Nausea with vomiting, unspecified; E11.9 Type 2 diabetes mellitus without complications; K21.9 Gastro-esophageal reflux disease without esophagitis; J45.909 Unspecified asthma, uncomplicated; F41.9 Anxiety disorder, unspecified; F32.9 Major depressive disorder, single episode, unspecified; F17.290 Nicotine dependence, other tobacco product, uncomplicated; F12.90 Cannabis use, unspecified, uncomplicated; Z88.0 Allergy status to penicillin; Z88.1 Allergy status to other antibiotic agents; Z88.2 Allergy status to sulfonamides; Z88.5 Allergy status to narcotic agent; Z91.040 Latex allergy status; Z87.19 Personal history of other diseases of the digestive system
CPT/HCPCS: 99284; 96374; 96375; 96361; 96372; 36415; 80053; 82150; 83690; 85025; 85610; 85730; 81001; 74018; J0500; J2405

== ENCOUNTER 2021-01-10 14:03 | Emergency (ER) | payer OTHER ==
[2021-01-10 14:08] VITALS: RESP 18; TEMP 98.2
[2021-01-10] MEDS ORDERED: HYDROmorphone 1 MG/ML 1 ML SYRINGE IM STA ×2 (14:16→15:02)
[2021-01-10] MEDS ORDERED: diphenhydrAMINE 50 MG/ML 1 ML VIAL IM STA (14:16)
[2021-01-10] MEDS ORDERED: ONDANSETRON 4 MG/2 ML VIAL IM STA (14:17)
--- NOTE | 2021-01-10 15:04 | ED ---
Headache HPI - General Chief Complaint: Headache Stated Complaint: Headache Time Seen by Provider: 01/10/21 14:10 Source: RN notes reviewed Mode of arrival: ambulatory Limitations: no limitations - History of Present Illness Initial Comments: Patient is a 30-year-old female that presents to the emergency department complaining of migraine type headache. She notes this is very similar to past several previous migraines. She notes that she did see her neurologist today but he was unable to do infusion due to scheduling in time restraints. Patient notes that she just wants symptomatic control and that she is fine with discharge home. She denied any chest pain shortness of breath vomiting diarrhea constipation fever fatigue chills. - Related Data Home Medications Medication Instructions Recorded Confirmed ARIPiprazole [Abilify] 7.5 mg PO HS 08/13/20 01/06/21 Fenofibrate Nanocrystallized 145 mg PO HS 11/06/20 01/06/21 [Fenofibrate] Rimegepant Sulfate [Nurtec Odt] 75 mg PO DAILY PRN 11/06/20 01/06/21 tiZANidine HCL 4 mg PO BID PRN 11/06/20 01/06/21 Albuterol Sulfate [Proair Hfa] 1 - 2 puff INHALATION RT-Q6H PRN 11/11/20 01/06/21 Doxepin HCl [SINEquan] 150 mg PO HS 01/06/21 01/06/21 Fluticasone Nasal [place] [Flonase 2 spr EA NOSTRIL DAILY PRN 01/06/21 01/06/21 Nasal [place]] Nystatin [Nystop] 1 applic TOPICAL BID PRN 01/06/21 01/06/21 PARoxetine HCL [Paxil] 10 mg PO DAILY 01/06/21 01/06/21 Pioglitazone HCl 15 mg PO DAILY 01/06/21 01/06/21 busPIRone HCL 15 mg PO TID 01/06/21 01/06/21 clonazePAM [KlonoPIN] 0.5 mg PO Q7D PRN 01/06/21 01/06/21 hydrOXYzine pamoate [Vistaril] 50 mg PO QID PRN 01/06/21 01/06/21 Previous Rx's Medication Instructions Recorded Melatonin 3 mg PO HS tablet 11/13/20 QUEtiapine [SEROquel] 25 mg PO DAILY tab 11/13/20 QUEtiapine [SEROquel] 300 mg PO HS tab 11/13/20 Topiramate [Topamax] 50 mg PO BID tab 11/13/20 Metoprolol Tartrate [Lopressor] 12.5 mg PO DAILY #60 tab 11/16/20 Allergies Allergy/AdvReac Type Severity Reaction Status Date / Time bee pollen Allergy Severe Anaphylaxis Verified 01/10/21 14:08 haloperidol [From Haldol] Allergy Severe QUIT Verified 01/10/21 14:08 BREATHING haloperidol lactate Allergy Severe QUIT Verified 01/10/21 14:08 [From Haldol] BREATHING latex Allergy Severe RASH-THROAT Verified 01/10/21 14:08 CLOSES tramadol Allergy Severe Nausea & Verified 01/10/21 14:08 Vomiting [place]ri[place] Allergy Anaphylaxis Verified 01/10/21 14:08 coconut Allergy Anaphylaxis Verified 01/10/21 14:08 pineapple Allergy Anaphylaxis Verified 01/10/21 14:08 prednisone Allergy THROAT Verified 01/10/21 14:08 SWELLS spider venom Allergy Swelling Verified 01/10/21 14:08 Sulfa (Sulfonamide Allergy THROAT Verified 01/10/21 14:08 Antibiotics) SWELLS venom-wasp Allergy Swelling Verified 01/10/21 14:08 venom-wasp protein Allergy Swelling Verified 01/10/21 14:08 promethazine HCl AdvReac Severe Nausea & Verified 01/10/21 14:08 [From Phenergan] Vomiting amoxicillin AdvReac Nausea & Verified 01/10/21 14:08 Vomiting ANTS Allergy Mild Anaphylaxis Uncoded 01/10/21 14:08 Review of Systems ROS Statement: Those systems with pertinent positive or pertinent negative responses have been documented in the HPI. ROS Other: All systems not noted in ROS Statement are negative. Past Medical History Past Medical History: Asthma, Diabetes Mellitus, GERD/Reflux Additional Past Medical History / Comment(s): migraines, degenerative disk disease, endometriosis, lupus, pancreatitis, covid vaccine moderna History of Any Multi-Drug Resistant Organisms: None Reported Past Surgical History: Orthopedic Surgery Additional Past Surgical History / Comment(s): laparoscopc surgery for endometriosis, cyst removed from left foot, EGD, Past Anesthesia/Blood Transfusion Reactions: Previous Problems w/ Anesthesia Additional Past Anesthesia/Blood Transfusion Reaction / Comment(s): hard to wake up for 48-72 hours after laparoscopic surgery-was in hosp. for 3 days Past Psychological History: Anxiety, Depression, PTSD Smoking Status: Vaper Past Alcohol Use History: None Reported Past Drug Use History: Marijuana - Past Family History Mother Family Medical History: No Reported History Additional Family Medical History / Comment(s): hx migraines Father Family Medical History: Coronary Artery Disease (CAD), Hypertension Additional Family Medical History / Comment(s): ddd, alcoholism & drug use General Exam Limitations: no limitations General appearance: alert, in no apparent distress, obese Head exam: Present: atraumatic, normocephalic, normal inspection Eye exam: Present: normal appearance, PERRL, EOMI. Absent: scleral icterus, conjunctival injection, periorbital swelling ENT exam: Present: normal exam, mucous membranes moist Neck exam: Present: normal inspection Respiratory exam: Present: normal lung sounds bilaterally. Absent: respiratory distress, wheezes, rales, rhonchi, stridor Cardiovascular Exam: Present: regular rate, normal rhythm, normal heart sounds. Absent: systolic murmur, diastolic murmur, rubs, gallop, clicks GI/Abdominal exam: Present: soft, normal bowel sounds. Absent: distended, tenderness, guarding, rebound, rigid Extremities exam: Present: normal inspection, full ROM, normal capillary refill. Absent: tenderness, pedal edema, joint swelling, calf tenderness Neurological exam: Present: alert Psychiatric exam: Present: normal affect, normal mood Skin exam: Present: warm, dry, intact, normal color. Absent: rash Course Vital Signs 01/10/21 14:06 Temperature 98.2 F Pulse Rate 121 H Respiratory 18 Rate Blood Pressure 131/95 O2 Sat by Pulse 99 Oximetry Medical Decision Making - Medical Decision Making 30-year-old female with migraine type headache, frequents the ER for similar complaint. 1 mg of Dilaudid, 50 mg of Benadryl, 4 mg of Zofran ordered. Upon reevaluation patient states that she is agreeable with discharge home and at home medications as her headache has decreased. 1 more milligram of Dilaudid ordered. Case discussed with Dr. Avalos, patient discharge home with follow-up primary care. Disposition Clinical Impression: Chronic headache, Migraine headache Disposition: HOME SELF-CARE Condition: Stable Instructions (If sedation given, give patient instructions): Acute Headache (ED) Additional Instructions: Please return to the Emergency Department if symptoms worsen or any other concerns. Follow-up with primary care 1-2 days. Take at home medications as prescribed. Is patient prescribed a controlled substance at d/c from ED?: No Referrals: Jorje Mayes MD [Primary Care Provider] - 1-2 days Time of Disposition: 15:24
[2021-01-10 15:27] VITALS: BP 132/83; PULSE 101
== END 2021-01-10 15:29 | disposition home or self-care (01) ==
LOC: EC 14:03
DX: G43.909 Migraine, unspecified, not intractable, without status migrainosus (principal); G89.29 Other chronic pain; E11.9 Type 2 diabetes mellitus without complications; K21.9 Gastro-esophageal reflux disease without esophagitis; F41.9 Anxiety disorder, unspecified; E66.9 Obesity, unspecified; F17.290 Nicotine dependence, other tobacco product, uncomplicated; F12.90 Cannabis use, unspecified, uncomplicated; Z79.84 Long term (current) use of oral hypoglycemic drugs; Z88.0 Allergy status to penicillin; Z88.2 Allergy status to sulfonamides; Z88.5 Allergy status to narcotic agent; Z88.8 Allergy status to other drugs, medicaments and biological substances; Z82.49 Family history of ischemic heart disease and other diseases of the circulatory system; Z68.39 Body mass index [BMI] 39.0-39.9, adult
CPT/HCPCS: 99283; 96372 ×4; J1200; J2405; J1170

== ENCOUNTER 2021-01-13 17:54 | Emergency (ER) | payer OTHER ==
[2021-01-13 19:33] VITALS: BP 155/101; PULSE 82; RESP 18; TEMP 98.3
[2021-01-13] MEDS ORDERED: HYDROmorphone 1 MG/ML 1 ML SYRINGE IM STA (21:51)
--- NOTE | 2021-01-13 21:52 | ED ---
Headache HPI - General Chief Complaint: Headache Stated Complaint: migraine Time Seen by Provider: 01/13/21 21:29 Source: RN notes reviewed Mode of arrival: ambulatory Limitations: no limitations - History of Present Illness Initial Comments: 30-year-old female well-known emergency Department with chief complaint of headache. Patient states that the same headache gets is an ongoing she has been referred to a specialist. Patient denies any trauma no fevers or chills no neck pain no associated weakness blurred vision no other associated complaints. - Related Data Home Medications Medication Instructions Recorded Confirmed ARIPiprazole [Abilify] 7.5 mg PO HS 08/13/20 01/06/21 Fenofibrate Nanocrystallized 145 mg PO HS 11/06/20 01/06/21 [Fenofibrate] Rimegepant Sulfate [Nurtec Odt] 75 mg PO DAILY PRN 11/06/20 01/06/21 tiZANidine HCL 4 mg PO BID PRN 11/06/20 01/06/21 Albuterol Sulfate [Proair Hfa] 1 - 2 puff INHALATION RT-Q6H PRN 11/11/20 01/06/21 Doxepin HCl [SINEquan] 150 mg PO HS 01/06/21 01/06/21 Fluticasone Nasal [place] [Flonase 2 spr EA NOSTRIL DAILY PRN 01/06/21 01/06/21 Nasal [place]] Nystatin [Nystop] 1 applic TOPICAL BID PRN 01/06/21 01/06/21 PARoxetine HCL [Paxil] 10 mg PO DAILY 01/06/21 01/06/21 Pioglitazone HCl 15 mg PO DAILY 01/06/21 01/06/21 busPIRone HCL 15 mg PO TID 01/06/21 01/06/21 clonazePAM [KlonoPIN] 0.5 mg PO Q7D PRN 01/06/21 01/06/21 hydrOXYzine pamoate [Vistaril] 50 mg PO QID PRN 01/06/21 01/06/21 Previous Rx's Medication Instructions Recorded Melatonin 3 mg PO HS tablet 11/13/20 QUEtiapine [SEROquel] 25 mg PO DAILY tab 11/13/20 QUEtiapine [SEROquel] 300 mg PO HS tab 11/13/20 Topiramate [Topamax] 50 mg PO BID tab 11/13/20 Metoprolol Tartrate [Lopressor] 12.5 mg PO DAILY #60 tab 11/16/20 Allergies Allergy/AdvReac Type Severity Reaction Status Date / Time bee pollen Allergy Severe Anaphylaxis Verified 01/13/21 19:33 haloperidol [From Haldol] Allergy Severe QUIT Verified 01/13/21 19:33 BREATHING haloperidol lactate Allergy Severe QUIT Verified 01/13/21 19:33 [From Haldol] BREATHING latex Allergy Severe RASH-THROAT Verified 01/13/21 19:33 CLOSES tramadol Allergy Severe Nausea & Verified 01/13/21 19:33 Vomiting [place]ri[place] Allergy Anaphylaxis Verified 01/13/21 19:33 coconut Allergy Anaphylaxis Verified 01/13/21 19:33 pineapple Allergy Anaphylaxis Verified 01/13/21 19:33 prednisone Allergy THROAT Verified 01/13/21 19:33 SWELLS spider venom Allergy Swelling Verified 01/13/21 19:33 Sulfa (Sulfonamide Allergy THROAT Verified 01/13/21 19:33 Antibiotics) SWELLS venom-wasp Allergy Swelling Verified 01/13/21 19:33 venom-wasp protein Allergy Swelling Verified 01/13/21 19:33 promethazine HCl AdvReac Severe Nausea & Verified 01/13/21 19:33 [From Phenergan] Vomiting amoxicillin AdvReac Nausea & Verified 01/13/21 19:33 Vomiting ANTS Allergy Mild Anaphylaxis Uncoded 01/13/21 19:33 Review of Systems ROS Statement: Those systems with pertinent positive or pertinent negative responses have been documented in the HPI. ROS Other: All systems not noted in ROS Statement are negative. Past Medical History Past Medical History: Asthma, Diabetes Mellitus, GERD/Reflux Additional Past Medical History / Comment(s): migraines, degenerative disk dis ease, endometriosis, lupus, pancreatitis, covid vaccine moderna History of Any Multi-Drug Resistant Organisms: None Reported Past Surgical History: Orthopedic Surgery Additional Past Surgical History / Comment(s): laparoscopc surgery for endometriosis, cyst removed from left foot, EGD, Past Anesthesia/Blood Transfusion Reactions: Previous Problems w/ Anesthesia Additional Past Anesthesia/Blood Transfusion Reaction / Comment(s): hard to wake up for 48-72 hours after laparoscopic surgery-was in hosp. for 3 days Past Psychological History: Anxiety, Depression, PTSD Smoking Status: Vaper Past Alcohol Use History: None Reported Past Drug Use History: Marijuana - Past Family History Mother Family Medical History: No Reported History Additional Family Medical History / Comment(s): hx migraines Father Family Medical History: Coronary Artery Disease (CAD), Hypertension Additional Family Medical History / Comment(s): ddd, alcoholism & drug use General Exam Limitations: no limitations General appearance: alert, in no apparent distress Head exam: Present: atraumatic, normocephalic, normal inspection Eye exam: Present: normal appearance, PERRL, EOMI. Absent: scleral icterus, conjunctival injection, periorbital swelling ENT exam: Present: normal exam, normal oropharynx, mucous membranes moist Neck exam: Present: normal inspection, full ROM. Absent: tenderness, meningismus, lymphadenopathy Respiratory exam: Present: normal lung sounds bilaterally. Absent: respiratory distress, wheezes, rales, rhonchi, stridor Cardiovascular Exam: Present: regular rate, normal rhythm, normal heart sounds. Absent: systolic murmur, diastolic murmur, rubs, gallop, clicks Neurological exam: Present: alert, oriented X3, CN II-XII intact, reflexes normal, other (Finger to nose intact bilaterally). Absent: motor sensory deficit Course Vital Signs 01/13/21 19:30 Temperature 98.3 F Pulse Rate 82 Respiratory 18 Rate Blood Pressure 155/101 O2 Sat by Pulse 96 Oximetry Medical Decision Making - Medical Decision Making Patient has no red flag symptoms neurologically intact will be discharged in stable condition. Patient denies that she needs to follow up outpatient for further treatment. Disposition Clinical Impression: Chronic headache Disposition: HOME SELF-CARE Condition: Stable Instructions (If sedation given, give patient instructions): Acute Headache ( ED) Additional Instructions: Please return to the Emergency Department if symptoms worsen or any other concerns. Is patient prescribed a controlled substance at d/c from ED?: No Referrals: Jorje Mayes MD [Primary Care Provider] - 1-2 days Time of Disposition: 21:52
== END 2021-01-13 22:08 | disposition home or self-care (01) ==
LOC: EC 17:54
DX: G89.29 Other chronic pain (principal); R51.9 Headache, unspecified; E11.9 Type 2 diabetes mellitus without complications; K21.9 Gastro-esophageal reflux disease without esophagitis; J45.909 Unspecified asthma, uncomplicated; F32.9 Major depressive disorder, single episode, unspecified; F41.9 Anxiety disorder, unspecified; F17.290 Nicotine dependence, other tobacco product, uncomplicated; F12.90 Cannabis use, unspecified, uncomplicated; Z79.84 Long term (current) use of oral hypoglycemic drugs; Z79.51 Long term (current) use of inhaled steroids; Z88.0 Allergy status to penicillin; Z88.2 Allergy status to sulfonamides; Z88.5 Allergy status to narcotic agent; Z88.8 Allergy status to other drugs, medicaments and biological substances; Z63.72 Alcoholism and drug addiction in family
CPT/HCPCS: 96372; 99283; J1170

== ENCOUNTER 2021-01-23 11:04 | Emergency (ER) | payer OTHER ==
[2021-01-23 11:10] VITALS: RESP 18; TEMP 96.8
[2021-01-23] MEDS ORDERED: SODIUM CHLORIDE 0.9% 1,000 ML IV STA (11:27)
[2021-01-23] MEDS ORDERED: KETOROLAC 15 MG/ML 1 ML VIAL IVP STA (11:27)
[2021-01-23] MEDS ORDERED: METOCLOPRAMIDE 5 MG/ML 2 ML VIAL IVP STA (11:28)
[2021-01-23] MEDS ORDERED: diphenhydrAMINE 50 MG/ML 1 ML VIAL IVP STA (11:28)
--- NOTE | 2021-01-23 11:32 | ED ---
General Adult HPI - General Chief complaint: Headache Stated complaint: headache Time Seen by Provider: 01/23/21 11:16 Source: patient, RN notes reviewed Mode of arrival: ambulatory Limitations: no limitations - History of Present Illness Initial comments: 30-year-old female with a past medical history of asthma, diabetes mellitus, migraines, GERD presents to the emergency room for a chief complaint of headache. Patient states she has had a migraine headache for the past 3 days. States it came on gradually, no thunderclap symptomology. States that it is on the area across her forehead. Patient states it is making her nauseous and dizzy. Patient states this feels like her typical migraine. Patient did try Imitrex, nurtec, tramadol at home with no relief.Patient has no other complaints at this time including shortness of breath, chest pain, abdominal pain, nausea or vomiting, headache, or visual changes. - Related Data Home Medications Medication Instructions Recorded Confirmed ARIPiprazole [Abilify] 7.5 mg PO HS 08/13/20 01/06/21 Fenofibrate Nanocrystallized 145 mg PO HS 11/06/20 01/06/21 [Fenofibrate] Rimegepant Sulfate [Nurtec Odt] 75 mg PO DAILY PRN 11/06/20 01/06/21 tiZANidine HCL 4 mg PO BID PRN 11/06/20 01/06/21 Albuterol Sulfate [Proair Hfa] 1 - 2 puff INHALATION RT-Q6H PRN 11/11/20 01/06/21 Doxepin HCl [SINEquan] 150 mg PO HS 01/06/21 01/06/21 Fluticasone Nasal [place] [Flonase 2 spr EA NOSTRIL DAILY PRN 01/06/21 01/06/21 Nasal [place]] Nystatin [Nystop] 1 applic TOPICAL BID PRN 01/06/21 01/06/21 PARoxetine HCL [Paxil] 10 mg PO DAILY 01/06/21 01/06/21 Pioglitazone HCl 15 mg PO DAILY 01/06/21 01/06/21 busPIRone HCL 15 mg PO TID 01/06/21 01/06/21 clonazePAM [KlonoPIN] 0.5 mg PO Q7D PRN 01/06/21 01/06/21 hydrOXYzine pamoate [Vistaril] 50 mg PO QID PRN 01/06/21 01/06/21 Previous Rx's Medication Instructions Recorded Melatonin 3 mg PO HS tablet 11/13/20 QUEtiapine [SEROquel] 25 mg PO DAILY tab 11/13/20 QUEtiapine [SEROquel] 300 mg PO HS tab 11/13/20 Topiramate [Topamax] 50 mg PO BID tab 11/13/20 Metoprolol Tartrate [Lopressor] 12.5 mg PO DAILY #60 tab 11/16/20 Allergies Allergy/AdvReac Type Severity Reaction Status Date / Time bee pollen Allergy Severe Anaphylaxis Verified 01/23/21 11:10 haloperidol [From Haldol] Allergy Severe QUIT Verified 01/23/21 11:10 BREATHING haloperidol lactate Allergy Severe QUIT Verified 01/23/21 11:10 [From Haldol] BREATHING latex Allergy Severe RASH-THROAT Verified 01/23/21 11:10 CLOSES tramadol Allergy Severe Nausea & Verified 01/23/21 11:10 Vomiting [place] Allergy Anaphylaxis Verified 01/23/21 11:10 coconut Allergy Anaphylaxis Verified 01/23/21 11:10 pineapple Allergy Anaphylaxis Verified 01/23/21 11:10 prednisone Allergy THROAT Verified 01/23/21 11:10 SWELLS spider venom Allergy Swelling Verified 01/23/21 11:10 Sulfa (Sulfonamide Allergy THROAT Verified 01/23/21 11:10 Antibiotics) SWELLS venom-wasp Allergy Swelling Verified 01/23/21 11:10 venom-wasp protein Allergy Swelling Verified 01/23/21 11:10 promethazine HCl AdvReac Severe Nausea & Verified 01/23/21 11:10 [From Phenergan] Vomiting amoxicillin AdvReac Nausea & Verified 01/23/21 11:10 Vomiting ANTS Allergy Mild Anaphylaxis Uncoded 01/23/21 11:10 Review of Systems ROS Statement: Those systems with pertinent positive or pertinent negative responses have been documented in the HPI. ROS Other: All systems not noted in ROS Statement are negative. Past Medical History Past Medical History: Asthma, Diabetes Mellitus, GERD/Reflux Additional Past Medical History / Comment(s): migraines, degenerative disk disease, endometriosis, lupus, pancreatitis, covid vaccine moderna History of Any Multi-Drug Resistant Organisms: None Reported Past Surgical History: Orthopedic Surgery Additional Past Surgical History / Comment(s): laparoscopc surgery for endometriosis, cyst removed from left foot, EGD, Past Anesthesia/Blood Transfusion Reactions: Previous Problems w/ Anesthesia Additional Past Anesthesia/Blood Transfusion Reaction / Comment(s): hard to wake up for 48-72 hours after laparoscopic surgery-was in hosp. for 3 days Past Psychological History: Anxiety, Depression, PTSD Smoking Status: Current every day smoker, Vaper Past Alcohol Use History: None Reported Past Drug Use History: Marijuana - Past Family History Mother Family Medical History: No Reported History Additional Family Medical History / Comment(s): hx migraines Father Family Medical History: Coronary Artery Disease (CAD), Hypertension Additional Family Medical History / Comment(s): ddd, alcoholism & drug use General Exam Limitations: no limitations General appearance: alert, in no apparent distress Head exam: Present: atraumatic Eye exam: Present: normal appearance, PERRL, EOMI. Absent: scleral icterus, conjunctival injection ENT exam: Present: normal exam, mucous membranes moist Neck exam: Present: normal inspection, full ROM. Absent: tenderness Respiratory exam: Present: normal lung sounds bilaterally. Absent: respiratory distress, wheezes, rales Cardiovascular Exam: Present: regular rate, normal rhythm, normal heart sounds GI/Abdominal exam: Present: soft, normal bowel sounds. Absent: distended, tenderness Course Vital Signs 01/23/21 01/23/21 11:06 13:13 Temperature 96.8 F L Pulse Rate 115 H 83 Respiratory 18 18 Rate Blood Pressure 91/58 100/63 O2 Sat by Pulse 98 100 Oximetry Medical Decision Making - Medical Decision Making Vitals are stable. Patient is well-appearing. She is wearing sunglasses as she has light sensitivity. Symptoms are consistent with previous migraines. Patient was given migraine cocktail and fluids. At this time patient can be discharged home to follow up with primary care. Will return here for any worsening symptoms. Disposition Clinical Impression: Migraine headache Disposition: HOME SELF-CARE Condition: Good Instructions (If sedation given, give patient instructions): Acute Headache (ED) Additional Instructions: Please follow-up with your doctor. Return to the emergency room for any worsening symptoms. Is patient prescribed a controlled substance at d/c from ED?: No Referrals: Jorje Mayes MD [Primary Care Provider] - 1-2 days Time of Disposition: 14:25
[2021-01-23 14:44] VITALS: BP 103/87; PULSE 70
== END 2021-01-23 14:45 | disposition home or self-care (01) ==
LOC: EC 11:04
DX: G43.909 Migraine, unspecified, not intractable, without status migrainosus (principal); J45.909 Unspecified asthma, uncomplicated; E11.9 Type 2 diabetes mellitus without complications; K21.9 Gastro-esophageal reflux disease without esophagitis; F41.9 Anxiety disorder, unspecified; F32.9 Major depressive disorder, single episode, unspecified; F43.12 Post-traumatic stress disorder, chronic; F17.200 Nicotine dependence, unspecified, uncomplicated; F12.90 Cannabis use, unspecified, uncomplicated; Z88.2 Allergy status to sulfonamides; Z88.1 Allergy status to other antibiotic agents; Z91.040 Latex allergy status; Z88.5 Allergy status to narcotic agent
CPT/HCPCS: 99283; 96374; 96375 ×2; 96361 ×2; J1200; J2765; J1885

== ENCOUNTER 2021-01-25 19:03 | Observation (INO) | payer OTHER ==
[2021-01-25] MEDS ORDERED: SODIUM CHLORIDE 0.9% 1,000 ML IV STA ×2 (19:38→22:37)
[2021-01-25] MEDS ORDERED: KETOROLAC 15 MG/ML 1 ML VIAL IVP STA (19:38)
[2021-01-25] MEDS ORDERED: diphenhydrAMINE 50 MG/ML 1 ML VIAL IVP STA (19:38)
[2021-01-25] MEDS ORDERED: FAMOTIDINE 20 MG/2 ML VIAL IV STA (19:39)
[2021-01-25] MEDS ORDERED: PROCHLORPERAZINE INJ 10 MG/2 ML VIAL IVP STA (19:39)
[2021-01-25 20:16] LABS: Appearance,Urine Cloudy (Clear); Bacteria,Urine Rare /hpf; Bilirubin,Urine Negative (Negative); Blood,Urine Moderate (Negative); Color,Urine Yellow; Glucose,Urine (UA) Trace (Negative); Ketones,Urine Negative (Negative); Leukocyte Esterase,Urine Negative (Negative); Mucus,Urine Rare /hpf; Nitrite,Urine Negative (Negative); PH, Urine 6.5 (5.0-8.0); Protein,Urine Negative (Negative); RBC,Urine 13 /hpf (0-5); Specific Gravity,Urine 1.018 (1.001-1.035); Squamous Epithelial Cell,Urine <1 /hpf (0-4); Urobilinogen,Urine <2.0 mg/dL (<2.0); WBC,Urine 2 /hpf (0-5)
[2021-01-25 20:17] LABS: Basophils % (A) 0 %; Eosinophils # (A) 0.2 k/uL (0-0.7); Eosinophils % (A) 2 %; HCT 38.1 % (34.0-46.0); HGB 13.2 gm/dL (11.4-16.0); Hyperchromasia Slight; Lymphocytes % (A) 34 %; MCH 30.8 pg (25.0-35.0); MCHC 34.8 g/dL (31.0-37.0); MCV 88.5 fL (80.0-100.0); Mean Platelet Volume 8.1; Monocytes # (A) 0.3 k/uL (0-1.0); Monocytes % (A) 3 %; Neutrophils # (A) 5.3 k/uL (1.3-7.7); Neutrophils % (A) 59 %; Platelet Count 257 k/uL (150-450); RBC 4.31 m/uL (3.80-5.40); RDW 13.6 % (11.5-15.5); WBC 8.9 k/uL (3.8-10.6)
[2021-01-25 20:24] LABS: ALT 24 U/L (4-34); AST 28 U/L (14-36); African American GFR (CKD) >90 (>60 ml/min/1.73 sqM); Albumin 4.3 g/dL (3.5-5.0); Alkaline Phosphatase 91 U/L (38-126); Amylase 49 U/L (30-110); Anion Gap 10 mmol/L; Blood Urea Nitrogen 14 mg/dL (7-17); Calcium 11.1 mg/dL (8.4-10.2); Carbon Dioxide 23 mmol/L (22-30); Chloride 104 mmol/L (98-107); Glucose 122 mg/dL (74-99); Lipase 348 U/L (23-300); Non-African American GFR(CKD) >90 (>60 ml/min/1.73 sqM); Potassium 4.1 mmol/L (3.5-5.1); Sodium 137 mmol/L (137-145); Total Bilirubin 0.6 mg/dL (0.2-1.3); Total Protein 7.9 g/dL (6.3-8.2)
[2021-01-25 20:28] LABS: INR 0.9 (<1.2); Partial Thromboplastin Time 22.1 sec (22.0-30.0); Prothrombin Time 9.8 sec (9.0-12.0)
[2021-01-25] MEDS ORDERED: MORPHINE SULFATE 4 MG/ML SYRINGE IVP STA ×2 (20:41→21:04)
--- NOTE | 2021-01-25 20:54 | US ---
EXAMINATION TYPE: US gallbladder DATE OF EXAM: 01/25/2021 COMPARISON: US 2020 CLINICAL HISTORY: RUQ abd pain. EXAM MEASUREMENTS: Liver Length: 15.5 cm Gallbladder Wall: 0.2 cm CBD: 0.4 cm Right Kidney: 10.4 x 5.1 x 5.7 cm Pancreas: visualized portions wnl, limited by overlying midline bowel gas Liver: wnl Gallbladder: wnl Evidence for sonographic Velasquez's sign: no CBD: visualized portions wnl, limited by overlying bowel gas Right Kidney: wnl IMPRESSION: No gallstones or dilated ducts.
[2021-01-25] MEDS ORDERED: ONDANSETRON 4 MG/2 ML VIAL IVP STA (21:04)
--- NOTE | 2021-01-25 21:16 | ED ---
General Adult HPI - General Chief complaint: Abdominal Pain Stated complaint: Abd pain, nausea & migraine Time Seen by Provider: 01/25/21 19:20 Source: patient, RN notes reviewed, old records reviewed Mode of arrival: ambulatory Limitations: no limitations - History of Present Illness Initial comments: I evaluated the patient when she was placed in a room. Patient is a 30-year-old female with past medical history remarkable for migraines, pancreatitis, asthma, diabetes, GERD who presents emergency Department complaining of her typical migraine headache associated with acute nausea and vomiting as well as epigastric and right upper quadrant abdominal pain. She states the headache started 4 days ago and slowly gotten worse and reminds her of her typical migraine headaches. She describes it as a tightness around her head at this time. She has sensitivity to light and sound. Associated with this is now the abdominal pain which is typical for her pancreatitis pain, however slightly worse she states. It is a sharp, achy pain located in the epigastric and right upper quadrant region. This started today associated with the nausea and vomi ting. She denies any drug use. She denies any chest pain, short of breath, fevers, chills, cough. She has no urinary complaints. Denies any diarrhea. Endorses nausea was nonbilious nonbloody emesis. She has no other acute complaints at this time. - Related Data Home Medications Medication Instructions Recorded Confirmed ARIPiprazole [Abilify] 7.5 mg PO HS 08/13/20 01/06/21 Fenofibrate Nanocrystallized 145 mg PO HS 11/06/20 01/06/21 [Fenofibrate] Rimegepant Sulfate [Nurtec Odt] 75 mg PO DAILY PRN 11/06/20 01/06/21 tiZANidine HCL 4 mg PO BID PRN 11/06/20 01/06/21 Albuterol Sulfate [Proair Hfa] 1 - 2 puff INHALATION RT-Q6H PRN 11/11/2001/06 Doxepin HCl [SINEquan] 150 mg PO HS 01/06/21 01/06/21 Fluticasone Nasal [place] [Flonase 2 spr EA NOSTRIL DAILY PRN 01/06/21 01/06/21 Nasal [place]] Nystatin [Nystop] 1 applic TOPICAL BID PRN 01/06/21 01/06/21 PARoxetine HCL [Paxil] 10 mg PO DAILY 01/06/21 01/06/21 Pioglitazone HCl 15 mg PO DAILY 01/06/21 01/06/21 busPIRone HCL 15 mg PO TID 01/06/21 01/06/21 clonazePAM [KlonoPIN] 0.5 mg PO Q7D PRN 01/06/21 01/06/21 hydrOXYzine pamoate [Vistaril] 50 mg PO QID PRN 01/06/21 01/06/21 Previous Rx's Medication Instructions Recorded Melatonin 3 mg PO HS tablet 11/13/20 QUEtiapine [SEROquel] 25 mg PO DAILY tab 11/13/20 QUEtiapine [SEROquel] 300 mg PO HS tab 11/13/20 Topiramate [Topamax] 50 mg PO BID tab 11/13/20 Metoprolol Tartrate [Lopressor] 12.5 mg PO DAILY #60 tab 11/16/20 Allergies Allergy/AdvReac Type Severity Reaction Status Date / Time bee pollen Allergy Severe Anaphylaxis Verified 01/25/21 19:08 haloperidol [From Haldol] Allergy Severe QUIT Verified 01/25/21 19:08 BREATHING haloperidol lactate Allergy Severe QUIT Verified 01/25/21 19:08 [From Haldol] BREATHING latex Allergy Severe RASH-THROAT Verified 01/25/21 19:08 CLOSES tramadol Allergy Severe Nausea & Verified 01/25/21 19:08 Vomiting [place] Allergy Anaphylaxis Verified 01/25/21 19:08 coconut Allergy Anaphylaxis Verified 01/25/21 19:08 pineapple Allergy Anaphylaxis Verified 01/25/21 19:08 prednisone Allergy THROAT Verified 01/25/21 19:08 SWELLS spider venom Allergy Swelling Verified 01/25/21 19:08 Sulfa (Sulfonamide Allergy THROAT Verified 01/25/21 19:08 Antibiotics) SWELLS venom-wasp Allergy Swelling Verified 01/25/21 19:08 venom-wasp protein Allergy Swelling Verified 01/25/21 19:08 promethazine HCl AdvReac Severe Nausea & Verified 01/25/21 19:08 [From Phenergan] Vomiting amoxicillin AdvReac Nausea & Verified 01/25/21 19:08 Vomiting ANTS Allergy Mild Anaphylaxis Uncoded 01/25/21 19:08 Review of Systems ROS Statement: Those systems with pertinent positive or pertinent negative responses have been documented in the HPI. Review of Systems: CONST: Denies fever EYES: Denies blurry vision ENT: Denies nasal congestion C/V: Denies Chest pain RESP: Denies shortness of breath GI: Endorses abdominal pain : Denies dysuria SKIN: Denies rash. MSK: Denies joint pain. NEURO: Endorses headache ROS Other: All systems not noted in ROS Statement are negative. Past Medical History Past Medical History: Asthma, Diabetes Mellitus, GERD/Reflux Additional Past Medical History / Comment(s): migraines, degenerative disk disease, endometriosis, lupus, pancreatitis, covid vaccine moderna History of Any Multi-Drug Resistant Organisms: None Reported Past Surgical History: Orthopedic Surgery Additional Past Surgical History / Comment(s): laparoscopc surgery for endometriosis, cyst removed from left foot, EGD, Past Anesthesia/Blood Transfusion Reactions: Previous Problems w/ Anesthesia Additional Past Anesthesia/Blood Transfusion Reaction / Comment(s): hard to wake up for 48-72 hours after laparoscopic surgery-was in hosp. for 3 days Past Psychological History: Anxiety, Depression, PTSD Smoking Status: Current every day smoker, Vaper Past Alcohol Use History: None Reported Past Drug Use History: Marijuana - Past Family History Mother Family Medical History: No Reported History Additional Family Medical History / Comment(s): hx migraines Father Family Medical History: Coronary Artery Disease (CAD), Hypertension Additional Family Medical History / Comment(s): ddd, alcoholism & drug use General Exam - General Exam Comments Initial Comments: Constitutional: Blood pressure was default value, pulse was default value, respirations were default value, pulse oximetry was default value, temperature was default value. General: Appears in mild to moderate distress secondary to abdominal pain and headache. HEAD: Normal with no signs of head trauma. EYES: PERRLA, EOMI, conjunctiva normal, no discharge. Pupils are 3 mm and equal bilaterally. ENT: Hearing grossly intact, normal oropharynx. Moist mucous membranes. RESPIRATORY: Clear breath sounds bilaterally. No wheezes, rales, or rhonchi. C/V: Patient is tachycardic with a regular rhythm. S1 and S2 auscultated. Peripheral pulses are 2+ and intact throughout. ABD: Abdomen is soft, nondistended. Patient is tender to palpation epigastric area and right upper quadrant. No CVA tenderness to percussion. No guarding. No rebound tenderness. No peritoneal signs. EXT: Normal range of motion, no obvious deformity SKIN: No rashes or lesions observed on exposed skin. NEURO: Alert and oriented 4. No focal sensory strength deficits. Cranial nerves II through XII are intact. Patient is able to ambulate without difficulty. Normal Neuro exam Limitations: no limitations Course Vital Signs 01/25/21 01/25/21 19:05 20:48 Temperature 98.5 F Pulse Rate 120 H 98 Respiratory 20 20 Rate Blood Pressure 150/96 130/94 O2 Sat by Pulse 98 98 Oximetry Medical Decision Making - Medical Decision Making Patient is a 30-year-old female with past medical history remarkable for migraines this was pancreatitis presenting with acute on chronic abdominal pain as well as migraine headache. Based on her physical exam and presentation, I'm concerned for an acute migraine headache as well as acute intra-abdominal process for current symptoms, possibly pancreatitis but cannot rule possibility of gallbladder pathology. I discussed with the patient that I would like to obtain abdominal laboratory studies as well as an ultrasound of gallbladder to start. We'll symptomatically treat her headache with IV Compazine, Toradol, morphine, Benadryl and 1 L fluid bolus. She was in agreement this plan. She'll be subsequently reevaluated. Laboratory studies were remarkable for a mild hypercalcemia of 11.1. Patient has an elevated lipase of 348 which upon chart review is elevated for the patient, however she typically does have a lipase in this range. Patient's urinalysis is remarkable for 13 RBCs without any signs of acute infection this time. Remainder of her laboratory studies are unremarkable. Patient's gallbladder ultrasound was within normal limits. On reevaluation, patient's migraine headache is vastly improved, however she is still nauseous and has abdominal pain. Heart rate is now wnl as well. She states it is better controlled but is still present. She states it is slightly worse than her typical abdominal pain when she is presented in the past for pancreatitis. It is more in the right upper quadrant this time. I discussed with her that despite having a CT abdomen and pelvis back in September, with a differ ent type of pain in this time I believe it is reasonable to obtain a CT abdomen and pelvis again. She was in agreement this plan. She will be redosed pain medications as well as antiemetics and reevaluated. Patient's CT abdomen and pelvis revealed atelectasis in the right posterior lung base. Patient is no respiratory complaints. Abdomen showed no acute intra-abdominal process. On reevaluation, patient is he feeling somewhat improved. She is willing to try by mouth intake to see if she can go home. She states her abdominal pain is improved as well as her migraine headache. Her nausea is also improving. She'll be given viscous lidocaine as well as water and crackers for by mouth marcelino llenge. She was in agreement this plan. On reevaluation, patient had an episode of emesis again. She states that the abdominal pain is back. As she is not tolerating by mouth intake, I will admit her to the hospital for intractable nausea and vomiting and acute on chronic abdominal pain. She was in agreement this plan. [facility] Patient will be admitted under Dr. Leblanc. Patient was admitted in stable condition. - Lab Data Result diagrams: 01/25/21 20:06 01/25/21 20:06 Lab Results 01/25/21 01/25/21 01/25/21 Range/Units 20:06 20:06 20:06 WBC 8.9 (3.8-10.6) k/uL RBC 4.31 (3.80-5.40) m/uL Hgb 13.2 (11.4-16.0) gm/dL Hct 38.1 (34.0-46.0) % MCV 88.5 (80.0-100.0) fL MCH 30.8 (25.0-35.0) pg MCHC 34.8 (31.0-37.0) g/dL RDW 13.6 (11.5-15.5) % Plt Count 257 (150-450) k/uL MPV 8.1 Neutrophils % 59 % Lymphocytes % 34 % Monocytes % 3 % Eosinophils % 2 % Basophils % 0 % Neutrophils # 5.3 (1.3-7.7) k/uL Lymphocytes # 3.0 (1.0-4.8) k/uL Monocytes # 0.3 (0-1.0) k/uL Eosinophils # 0.2 (0-0.7) k/uL Basophils # 0.0 (0-0.2) k/uL Hyperchromasia Slight PT 9.8 (9.0-12.0) sec INR 0.9 (<1.2) APTT 22.1 (22.0-30.0) sec Sodium (137-145) mmol/L Potassium (3.5-5.1) mmol/L Chloride (98-107) mmol/L Carbon Dioxide (22-30) mmol/L Anion Gap mmol/L BUN (7-17) mg/dL Creatinine (0.52-1.04) mg/dL Est GFR (CKD-EPI)AfAm (>60 ml/min/1.73 sqM) Est GFR (CKD-EPI)NonAf (>60 ml/min/1.73 sqM) Glucose (74-99) mg/dL Calcium (8.4-10.2) mg/dL Total Bilirubin (0.2-1.3) mg/dL AST (14-36) U/L ALT (4-34) U/L Alkaline Phosphatase (38-126) U/L Total Protein (6.3-8.2) g/dL Albumin (3.5-5.0) g/dL Amylase (30-110) U/L Lipase (23-300) U/L Urine Color Yellow Urine Appearance Cloudy H (Clear) Urine pH 6.5 (5.0-8.0) Ur Specific [place] 1.018 (1.001-1.035) Urine Protein Negative (Negative) Urine Glucose (UA) Trace H (Negative) Urine Ketones Negative (Negative) Urine Blood Moderate H (Negative) Urine Nitrite Negative (Negative) Urine Bilirubin Negative (Negative) Urine Urobilinogen <2.0 (<2.0) mg/dL Ur Leukocyte Esterase Negative (Negative) Urine RBC 13 H (0-5) /hpf Urine WBC 2 (0-5) /hpf Ur Squamous Epith Cells <1 (0-4) /hpf Urine Bacteria Rare H (None) /hpf Urine Mucus Rare H (None) /hpf Urine HCG, Qual (Not Detectd) 01/25/21 01/25/21 Range/Units 20:06 20:06 WBC (3.8-10.6) k/uL RBC (3.80-5.40) m/uL Hgb (11.4-16.0) gm/dL Hct (34.0-46.0) % MCV (80.0-100.0) fL MCH (25.0-35.0) pg MCHC (31.0-37.0) g/dL RDW (11.5-15.5) % Plt Count (150-450) k/uL MPV Neutrophils % % Lymphocytes % % Monocytes % % Eosinophils % % Basophils % % Neutrophils # (1.3-7.7) k/uL Lymphocytes # (1.0-4.8) k/uL Monocytes # (0-1.0) k/uL Eosinophils # (0-0.7) k/uL Basophils # (0-0.2) k/uL Hyperchromasia PT (9.0-12.0) sec INR (<1.2) APTT (22.0-30.0) sec Sodium 137 (137-145) mmol/L Potassium 4.1 (3.5-5.1) mmol/L Chloride 104 (98-107) mmol/L Carbon Dioxide 23 (22-30) mmol/L Anion Gap 10 mmol/L BUN 14 (7-17) mg/dL Creatinine 0.71 (0.52-1.04) mg/dL Est GFR (CKD-EPI)AfAm >90 (>60 ml/min/1.73 sqM) Est GFR (CKD-EPI)NonAf >90 (>60 ml/min/1.73 sqM) Glucose 122 H (74-99) mg/dL Calcium 11.1 H (8.4-10.2) mg/dL Total Bilirubin 0.6 (0.2-1.3) mg/dL AST 28 (14-36) U/L ALT 24 (4-34) U/L Alkaline Phosphatase 91 (38-126) U/L Total Protein 7.9 (6.3-8.2) g/dL Albumin 4.3 (3.5-5.0) g/dL Amylase 49 (30-110) U/L Lipase 348 H (23-300) U/L Urine Color Urine Appearance (Clear) Urine pH (5.0-8.0) Ur Specific [place] (1.001-1.035) Urine Protein (Negative) Urine Glucose (UA) (Negative) Urine Ketones (Negative) Urine Blood (Negative) Urine Nitrite (Negative) Urine Bilirubin (Negative) Urine Urobilinogen (<2.0) mg/dL Ur Leukocyte Esterase (Negative) Urine RBC (0-5) /hpf Urine WBC (0-5) /hpf Ur Squamous Epith Cells (0-4) /hpf Urine Bacteria (None) /hpf Urine Mucus (None) /hpf Urine HCG, Qual Not Detected (Not Detectd) Disposition Clinical Impression: Chronic pancreatitis, Nausea and vomiting, Migraine headache, Abdominal pain of unknown etiology Disposition: ADMITTED IP TO THIS [facility] Condition: Stable Referrals: Jorje Mayes MD [Primary Care Provider] - 1-2 days
--- NOTE | 2021-01-25 21:48 | CT ---
EXAMINATION TYPE: CT abdomen pelvis w con DATE OF EXAM: 01/25/2021 COMPARISON: 09/15/2020 HISTORY: Pancreatitis. Abdominal pain. CT DLP: mGycm Automated exposure control for dose reduction was used. CONTRAST: The contrast was Isovue 100 mL. FINDINGS: Lung bases show some rounded consolidation at the right posterior lung base. There is no pleural effu deanna. Heart size is normal. There is no pericardial effusion. Liver spleen stomach pancreas appear intact. Bile ducts are nondilated. Gallbladder appears normal. There is no adrenal mass. Kidneys show satisfactory contrast opacification. There is no hydronephrosi s. Ureters are not dilated. Appendix is posterior and appears normal. There is no retroperitoneal braeden nopathy. Bladder distends smoothly. Uterus is anteverted. There is no inguinal hernia. There is no ev idence of a pelvic mass. There is no free fluid in the pelvis. There is no mesenteric edema. There is no ascites or free air. There is no bowel obstruction. The lumbar vertebra have normal alignment. Posterior elements are intact. There is no compression fra cture. Bony pelvis is intact. The hip joints are intact. There is small hiatal hernia. IMPRESSION: There is 3 cm somewhat rounded infiltrate at the right posterior lung base that appears new compared to old exam and consistent with pneumonia or atelectasis. Normal appendix. No acute abnormality within the abdomen pelvis. No sign of appendicitis. There is so me minimal stranding around the pancreatic head on old CT scan that is not present on today's exam.
[2021-01-25] MEDS ORDERED: LIDOCAINE VISCOUS 2% 15 ML CUP MUCOUS MEM ONE (22:06)
[2021-01-25] MEDS ORDERED: IBUPROFEN 400 MG TAB PO PRN (22:35)
[2021-01-25] MEDS ORDERED: NALOXONE 0.4 MG/ML 1 ML VIAL IV PRN (22:35)
[2021-01-26] MEDS: MORPHINE SULFATE 4 MG/ML SYRINGE IV PRN ×5 (00:54→21:57)
[2021-01-26] MEDS: QUEtiapine 100 MG TAB PO SCH ×2 (00:55→20:31)
[2021-01-26] MEDS: tiZANidine 4 MG TAB PO PRN ×2 (01:32→16:41)
[2021-01-26] MEDS: ONDANSETRON 4 MG/2 ML VIAL IVP PRN ×2 (06:19→22:02)
[2021-01-26] MEDS ORDERED: clonazePAM 0.5 MG TAB PO PRN (10:32)
[2021-01-26] MEDS ORDERED: FLUTICASONE 50MCG/SPRAY NASAL 16GM EA NOSTRIL PRN (10:32)
[2021-01-26] MEDS ORDERED: ALBUTEROL NEBULIZED 2.5 MG/3 ML INHALATION PRN (10:32)
[2021-01-26] MEDS ORDERED: MECLIZINE 25 MG TAB PO PRN (10:32)
[2021-01-26] MEDS ORDERED: hydrOXYzine pamoate 25 MG CAP PO PRN (10:32)
[2021-01-26] MEDS: PARoxetine 10 MG TAB PO SCH (11:36)
--- NOTE | 2021-01-26 11:59 | XR ---
EXAMINATION TYPE: XR chest 2V DATE OF EXAM: 01/26/2021 COMPARISON: 11/27/2020 HISTORY: 30 years Female. STUDY INDICATION GIVEN: pneumonia . TECHNIQUE: Frontal lateral chest radiographs IMPRESSION: There are linear and patchy bibasilar opacities concerning for multifocal pneumonia and a telectasis. No pneumothorax or pleural effusion. Normal cardiomediastinal silhouette. No acute osseous abnormality.
[2021-01-26 12:21] LABS: Basophils % (A) 0 %; Eosinophils # (A) 0.2 k/uL (0-0.7); Eosinophils % (A) 3 %; HCT 32.8 % (34.0-46.0); Lymphocytes # (A) 2.7 k/uL (1.0-4.8); Lymphocytes % (A) 45 %; MCH 30.9 pg (25.0-35.0); MCHC 33.4 g/dL (31.0-37.0); MCV 92.5 fL (80.0-100.0); Mean Platelet Volume 7.9; Monocytes # (A) 0.2 k/uL (0-1.0); Monocytes % (A) 3 %; Neutrophils # (A) 2.8 k/uL (1.3-7.7); Neutrophils % (A) 47 %; Platelet Count 212 k/uL (150-450); RBC 3.55 m/uL (3.80-5.40); RDW 13.1 % (11.5-15.5); WBC 5.9 k/uL (3.8-10.6)
[2021-01-26 12:37] LABS: African American GFR (CKD) >90 (>60 ml/min/1.73 sqM); Anion Gap 6 mmol/L; Blood Urea Nitrogen 13 mg/dL (7-17); C Reactive Protein <0.5 mg/dL (<1.0); Calcium 9.9 mg/dL (8.4-10.2); Carbon Dioxide 23 mmol/L (22-30); Chloride 105 mmol/L (98-107); Glucose 133 mg/dL (74-99); Non-African American GFR(CKD) >90 (>60 ml/min/1.73 sqM); Potassium 3.8 mmol/L (3.5-5.1); Sodium 134 mmol/L (137-145)
[2021-01-26] MEDS: busPIRone HCl 5 MG TAB PO SCH ×2 (15:36→22:01)
[2021-01-26] MEDS: PROPRANOLOL 10 MG TAB PO SCH ×2 (15:36→23:47)
--- NOTE | 2021-01-26 17:16 | P.HPIM ---
History of Present Illness H&P Date: 01/26/21 Chief Complaint: Abdominal pain/nausea Patient is a 30-year-old female with past medical history remarkable for migraines, pancreatitis, asthma, diabetes, GERD who presents emergency Department complaining of her typical migraine headache associated with acute nausea and vomiting as well as epigastric and right upper quadrant abdominal pain. She states the headache started 4 days ago and slowly gotten worse and reminds her of her typical migraine headaches. She describes it as a tightness around her head at this time. She has sensitivity to light and sound. Associ ated with this is now the abdominal pain which is typical for her pancreatitis pain, however slightly worse she states. It is a sharp, achy pain located in the epigastric and right upper quadrant region. This started today associated with the nausea and vomiting. She denies any drug use. She denies any chest pain, short of breath, fevers, chills, cough. She has no urinary complaints. Denies any diarrhea. Endorses nausea was nonbilious nonbloody emesis. She has no other acute complaints at this time. Blood work completed in ED reveals a WBC of 8.9, hemoglobin 13.2 and platelet count of 257, sodium 137, potassium 4.1, BUN/creatinine of 14/0.71 and blood glucose of [address] abdomen and pelvis revealed atelectasis in the right posterior lung base. Review of Systems REVIEW OF SYSTEMS: CONSTITUTIONAL: No fever, no malaise, no fatigue. HEENT: No recent visual problems or hearing problems. Denied any sore throat. CARDIOVASCULAR: No chest pain, orthopnea, PND, no palpitations, no syncope. PULMONARY: No shortness of breath, no cough, no hemoptysis. GASTROINTESTINAL: No diarrhea, no nausea, no vomiting, no abdominal pain. NEUROLOGICAL: No headaches, no weakness, no numbness. HEMATOLOGICAL: Denies any bleeding or petechiae. GENITOURINARY: Denies any burning micturition, frequency, or urgency. MUSCULOSKELETAL/RHEUMATOLOGICAL: Denies any joint pain, swelling, or any muscle pain. ENDOCRINE: Denies any polyuria or polydipsia. The rest of the 14-point review of systems is negative. Past Medical History Past Medical History: Asthma, Diabetes Mellitus, GERD/Reflux Additional Past Medical History / Comment(s): migraines, degenerative disk disease, endometriosis, lupus, pancreatitis, covid vaccine moderna History of Any Multi-Drug Resistant Organisms: None Reported Past Surgical History: Orthopedic Surgery Additional Past Surgical History / Comment(s): laparoscopc surgery for endometriosis, cyst removed from left foot, EGD, Past Anesthesia/Blood Transfusion Reactions: Previous Problems w/ Anesthesia Additional Past Anesthesia/Blood Transfusion Reaction / Comment(s): hard to wake up for 48-72 hours after laparoscopic surgery-was in hosp. for 3 days Past Psychological History: Anxiety, Depression, PTSD Smoking Status: Former smoker Past Alcohol Use History: None Reported Additional Past Alcohol Use History / Comment(s): pt states that she occasionally has a "glass or two" of vodka that she mixes with Mountain Dew. Past Drug Use History: Marijuana Additional Drug Use History / Comment(s): pt states that "I hit the vape constantly through the day." pt reports that she has a 100 mg vape pen that she refills 6 times per day. - Past Family History Mother Family Medical History: No Reported History Additional Family Medical History / Comment(s): hx migraines Father Family Medical History: Coronary Artery Disease (CAD), Hypertension Additional Family Medical History / Comment(s): ddd, alcoholism & drug use Medications and Allergies Home Medications Medication Instructions Recorded Confirmed Type ARIPiprazole [Abilify] 7.5 mg PO HS 08/13/20 01/25/21 History Fenofibrate Nanocrystallized 145 mg PO HS 11/06/20 01/25/21 History [Fenofibrate] Rimegepant Sulfate [Nurtec Odt] 75 mg PO DAILY PRN 11/06/20 01/25/21 History tiZANidine HCL 4 mg PO BID PRN 11/06/20 01/25/21 History Albuterol Sulfate [Proair Hfa] 1 - 2 puff INHALATION RT-Q6H PRN 11/11/20 01/25/21 History Melatonin 3 mg PO HS tablet 11/13/20 01/25/21 Rx QUEtiapine [SEROquel] 25 mg PO DAILY tab 11/13/20 01/25/21 Rx QUEtiapine [SEROquel] 300 mg PO HS tab 11/13/20 01/25/21 Rx Topiramate [Topamax] 50 mg PO BID tab 11/13/20 01/25/21 Rx Metoprolol Tartrate [Lopressor] 12.5 mg PO DAILY #60 tab 11/16/20 01/25/21 Rx Doxepin HCl [SINEquan] 150 mg PO HS 01/06/21 01/25/21 History Fluticasone Nasal [place] [Flonase 2 spr EA NOSTRIL DAILY PRN 01/06/21 01/25/21 History Nasal [place]] PARoxetine HCL [Paxil] 10 mg PO DAILY 01/06/21 01/25/21 History Pioglitazone HCl 15 mg PO DAILY 01/06/21 01/25/21 History busPIRone HCL 15 mg PO TID 01/06/21 01/25/21 History clonazePAM [KlonoPIN] 0.5 mg PO Q7D PRN 01/06/21 01/25/21 History hydrOXYzine pamoate [Vistaril] 50 mg PO QID PRN 01/06/21 01/25/21 History Meclizine HCl 25 mg PO BID PRN 01/25/21 01/25/21 History Pravastatin Sodium [Pravachol] 40 mg PO DAILY 01/25/21 01/25/21 History Prazosin HCl 5 mg PO DAILY 01/25/21 01/25/21 History Propranolol [Inderal] 10 mg PO TID 01/25/21 01/25/21 History Allergies Allergy/AdvReac Type Severity Reaction Status Date / Time bee pollen Allergy Severe Anaphylaxis Verified 01/25/21 19:08 haloperidol [From Haldol] Allergy Severe QUIT Verified 01/25/21 19:08 BREATHING haloperidol lactate Allergy Severe QUIT Verified 01/25/21 19:08 [From Haldol] BREATHING latex Allergy Severe RASH-THROAT Verified 01/25/21 19:08 CLOSES tramadol Allergy Severe Nausea & Verified 01/25/21 19:08 Vomiting murri[place] Allergy Anaphylaxis Verified 01/25/21 19:08 coconut Allergy Anaphylaxis Verified 01/25/21 19:08 pineapple Allergy Anaphylaxis Verified 01/25/21 19:08 prednisone Allergy THROAT Verified 01/25/21 19:08 SWELLS spider venom Allergy Swelling Verified 01/25/21 19:08 Sulfa (Sulfonamide Allergy THROAT Verified 01/25/21 19:08 Antibiotics) SWELLS venom-wasp Allergy Swelling Verified 01/25/21 19:08 venom-wasp protein Allergy Swelling Verified 01/25/21 19:08 promethazine HCl AdvReac Severe Nausea & Verified 01/25/21 19:08 [From Phenergan] Vomiting amoxicillin AdvReac Nausea & Verified 01/25/21 19:08 Vomiting ANTS Allergy Mild Anaphylaxis Uncoded 01/25/21 19:08 Physical Exam Vitals: Vital Signs Temp Pulse Pulse Resp BP BP Pulse Ox 01/26/21 06:53 98 F 74 18 106/74 95 01/26/21 02:01 97.8 F 94 20 113/75 94 L 01/25/21 23:43 97.8 F 109 H 22 121/83 97 01/25/21 23:21 84 20 130/84 94 L 01/25/21 20:48 98 20 130/94 98 01/25/21 19:05 98.5 F 120 H 20 150/96 98 Intake and Output 01/25/21 01/26/21 01/26/21 22:59 06:59 14:59 Intake Total 100 Balance 100 Intake: Oral 100 Other: # Voids 1 Weight 104.326 kg 104.326 kg PHYSICAL EXAMINATION: GENERAL: The patient is alert and oriented x3, not in any acute distress. Well developed, well nourished. HEENT: Pupils are round and equally reacting to light. EOMI. No scleral icterus. No conjunctival pallor. Normocephalic, atraumatic. No pharyngeal erythema. No thyromegaly. CARDIOVASCULAR: S1 and S2 present. No murmurs, rubs, or gallops. PULMONARY: Chest is clear to auscultation, no wheezing or crackles. ABDOMEN: Soft, nontender, nondistended, normoactive bowel sounds. No palpable organomegaly. MUSCULOSKELETAL: No joint swelling or deformity. EXTREMITIES: No cyanosis, clubbing, or pedal edema. NEUROLOGICAL: Gross neurological examination did not reveal any focal deficits. SKIN: No rashes. Results CBC & Chem 7: 01/26/21 11:49 01/26/21 11:49 Labs: Abnormal Lab Results - Last 24 Hours (Table) 01/25/21 01/25/21 Range/Units 20:06 20:06 Glucose 122 H (74-99) mg/dL Calcium 11.1 H (8.4-10.2) mg/dL Lipase 348 H (23-300) U/L Urine Appearance Cloudy H (Clear) Urine Glucose (UA) Trace H (Negative) Urine Blood Moderate H (Negative) Urine RBC 13 H (0-5) /hpf Urine Bacteria Rare H (None) /hpf Urine Mucus Rare H (None) /hpf Thrombosis Risk Factor Assmnt - Choose All That Apply Each Factor Represents 1 point: Obesity (BMI >25) Thrombosis Risk Factor Assessment Total Risk Factor Score: 1 Thrombosis Risk Factor Assessment Level: Low Risk Assessment and Plan Assessment: 1. Intractable nausea vomiting/dehydration - We will continue with IV fluid hydration form of normal saline at rate of 100 mL an hour; patient has been placed on a clear liquid diet and will be monitored closely - We will monitor strict KIMBERLY's, daily weights, renal function and electrolytes - Continue with some dramatic treatment of nausea and vomiting 2. Persistent abdominal pain; CT of the abdomen is completed as is negative for any acute changes; patient continues to demand IV Dilaudid every 4 hours; workup has been negative so far; patient has had multiple admissions with abdominal pain; we will start spacing IV pain medication with plan to gradually discontinue 3. Possible pneumonia; CT of the abdomen done in lung bases and reveals possible right posterior lung base infiltrate versus atelectasis - Patient has no complaining of cough or shortness of breath at this time; chest exam is unremarkable; we will hold off on antibiotics at this time and obtain chest x-ray, pro-calcitonin and CRP - We will plan to start antibiotics as indicated 4. Diabetes mellitus; we will monitor Accu-Cheks every before meals and at bedtime with insulin sliding scale 5. Asthma; not in exacerbation; continue with home inhaler therapy 6. Gastroesophageal reflux disease; Protonix 40 mg by mouth daily DVT prophylaxis; SCDs CODE STATUS; full code
[2021-01-26] MEDS: TOPIRAMATE 25 MG TAB PO SCH (20:30)
[2021-01-26] MEDS ORDERED: DOXEPIN 25 MG CAP PO SCH (21:00)
[2021-01-26] MEDS ORDERED: ARIPiprazole 15 MG TAB PO SCH (21:00)
[2021-01-27] MEDS: tiZANidine 4 MG TAB PO PRN ×2 (00:13→12:53)
[2021-01-27] MEDS: MORPHINE SULFATE 4 MG/ML SYRINGE IV PRN ×3 (03:55→16:42)
[2021-01-27] MEDS: PARoxetine 10 MG TAB PO SCH (08:59)
[2021-01-27] MEDS: busPIRone HCl 5 MG TAB PO SCH ×2 (08:59→16:42)
[2021-01-27] MEDS: TOPIRAMATE 25 MG TAB PO SCH (08:59)
[2021-01-27] MEDS: PROPRANOLOL 10 MG TAB PO SCH ×2 (08:59→16:49)
[2021-01-27] MEDS ORDERED: QUEtiapine 25 MG TAB PO SCH (09:00)
[2021-01-27] MEDS ORDERED: METOPROLOL TARTRATE 12.5 MG TAB PO SCH (09:00)
[2021-01-27] MEDS ORDERED: PRAZOSIN 1 MG CAP PO SCH (09:00)
[2021-01-27 09:09] LABS: Basophils # (A) 0.02 X 10*3/uL (0.00-0.10); Basophils % (A) 0.4 %; Eosinophils # (A) 0.24 X 10*3/uL (0.04-0.35); Eosinophils % (A) 4.5 %; HCT 33.7 % (37.2-46.3); HGB 11.2 g/dL (12.0-15.0); Lymphocytes # (A) 2.85 X 10*3/uL (0.90-5.00); Lymphocytes % (A) 53.6 %; MCH 30.4 pg (27.0-32.0); MCHC 33.2 g/dL (32.0-37.0); MCV 91.6 fL (80.0-97.0); Mean Platelet Volume 10.8 fL (9.5-12.2); Monocytes % (A) 5.6 %; Neutrophils % (A) 35.7 %; Platelet Count 217 X 10*3/uL (140-440); RBC 3.68 X 10*6/uL (4.10-5.20); RDW 12.8 % (11.5-14.5); WBC 5.32 X 10*3/uL (4.50-10.00)
[2021-01-27 11:25] LABS: African American GFR (CKD) 115.5 (60.0-200.0); Anion Gap 8.1 mmol/L (4.00-12.00); BUN/Creat Ratio 10.88 Ratio (12.00-20.00); Blood Urea Nitrogen 8.7 mg/dL (9.0-27.0); Calcium 9.9 mg/dL (8.7-10.3); Carbon Dioxide 25.9 mmol/L (21.6-31.8); Non-African American GFR(CKD) 99.6 (60.0-200.0); Potassium 4.4 mmol/L (3.5-5.5)
[2021-01-27 12:15] LABS: Glucose,Whole Blood 155 mg/dL (75-99)
[2021-01-27] MEDS ORDERED: INSULIN ASPART (NovoLOG) 100 UNIT/ML VIAL SQ SCH (12:30)
[2021-01-27 15:29] VITALS: PULSE 69; RESP 20; TEMP 97.4
[2021-01-27 16:56] VITALS: BP 105/64
== END 2021-01-27 17:39 | disposition home or self-care (01) ==
LOC: EC 19:03 → 6NMEDSUR 22:55
PROVIDERS: ADMIT Hospitalist; ATTEND Hospitalist
DX: R11.2 Nausea with vomiting, unspecified (principal); R10.11 Right upper quadrant pain; R10.13 Epigastric pain; G43.909 Migraine, unspecified, not intractable, without status migrainosus; E86.0 Dehydration; Z20.822 Contact with and (suspected) exposure to COVID-19; J98.11 Atelectasis; E11.9 Type 2 diabetes mellitus without complications; J45.909 Unspecified asthma, uncomplicated; E83.52 Hypercalcemia; K44.9 Diaphragmatic hernia without obstruction or gangrene; F17.290 Nicotine dependence, other tobacco product, uncomplicated; K21.9 Gastro-esophageal reflux disease without esophagitis; M19.90 Unspecified osteoarthritis, unspecified site; F43.10 Post-traumatic stress disorder, unspecified; F41.9 Anxiety disorder, unspecified; F32.9 Major depressive disorder, single episode, unspecified; N80.9 Endometriosis, unspecified; Z79.899 Other long term (current) drug therapy; Z91.030 Bee allergy status; Z88.8 Allergy status to other drugs, medicaments and biological substances; Z91.040 Latex allergy status; Z88.5 Allergy status to narcotic agent; Z91.018 Allergy to other foods; Z91.038 Other insect allergy status; Z88.2 Allergy status to sulfonamides; Z88.0 Allergy status to penicillin; Z83.79 Family history of other diseases of the digestive system; Z82.49 Family history of ischemic heart disease and other diseases of the circulatory system; Z81.1 Family history of alcohol abuse and dependence; Z82.69 Family history of other diseases of the musculoskeletal system and connective tissue; Z81.3 Family history of other psychoactive substance abuse and dependence
CPT/HCPCS: 99285; 96376 ×3; 96361 ×2; 96374; 96375; 36415; 80053; 80048 ×2; 82150; 83690; 85025 ×3; 85610; 85730; 86140; 81001; 81025; 84145; 87635; 71046; 76705; 74177; G0378 ×3; J2270 ×3; J1200; J0780; J2405 ×2; J1885; Q9967

== ENCOUNTER 2021-01-29 15:11 | Emergency (ER) | payer OTHER ==
[2021-01-29 15:24] VITALS: RESP 16
[2021-01-29] MEDS ORDERED: KETOROLAC 15 MG/ML 1 ML VIAL IVP STA (15:49)
[2021-01-29] MEDS ORDERED: diphenhydrAMINE 50 MG/ML 1 ML VIAL IVP STA ×2 (15:49→18:03)
[2021-01-29] MEDS ORDERED: SODIUM CHLORIDE 0.9% 1,000 ML IV STA (15:49)
[2021-01-29] MEDS ORDERED: ONDANSETRON 4 MG/2 ML VIAL IVP STA (15:49)
--- NOTE | 2021-01-29 15:57 | ED ---
General Adult HPI - General Chief complaint: Headache Stated complaint: Vomiting,Headache Time Seen by Provider: 01/29/21 15:33 Source: patient, RN notes reviewed Mode of arrival: ambulatory Limitations: no limitations - History of Present Illness Initial comments: 30-year-old female presents to the emergency department with 4 day history of migraine headache. Patient states this is a typical migraine for her which is accompanied by dizziness, nausea, and sensitivity to light and sound. Patient states she attempted to take tramadol and Excedrin at home prior to arrival with no relief. Reports minimal oral intake due to nausea and right upper quadrant abdominal pain. Patient states she was recently hospitalized for pancreatitis and had her gallbladder evaluated at that time. States she was supposed to follow up with an cotton ball machine tender and her primary care provider, but has not done so with either. Patient denies vision changes, chest pain, shortness of breath, difficulty breathing, constipation, diarrhea, dysuria, hematuria or hematochezia. - Related Data Home Medications Medication Instructions Recorded Confirmed ARIPiprazole [Abilify] 7.5 mg PO HS 08/13/20 01/25/21 Fenofibrate Nanocrystallized 145 mg PO HS 11/06/20 01/25/21 [Fenofibrate] Rimegepant Sulfate [Nurtec Odt] 75 mg PO DAILY PRN 11/06/20 01/25/21 tiZANidine HCL 4 mg PO BID PRN 11/06/20 01/25/21 Albuterol Sulfate [Proair Hfa] 1 - 2 puff INHALATION RT-Q6H PRN 11/11/20 01/25/21 Doxepin HCl [SINEquan] 150 mg PO HS 01/06/21 01/25/21 Fluticasone Nasal [place] [Flonase 2 spr EA NOSTRIL DAILY PRN 01/06/21 01/25/21 Nasal [place]] PARoxetine HCL [Paxil] 10 mg PO DAILY 01/06/21 01/25/21 Pioglitazone HCl 15 mg PO DAILY 01/06/21 01/25/21 busPIRone HCL 15 mg PO TID 01/06/21 01/25/21 clonazePAM [KlonoPIN] 0.5 mg PO Q7D PRN 01/06/21 01/25/21 hydrOXYzine pamoate [Vistaril] 50 mg PO QID PRN 01/06/21 01/25/21 Meclizine HCl 25 mg PO BID PRN 01/25/21 01/25/21 Pravastatin Sodium [Pravachol] 40 mg PO DAILY 01/25/21 01/25/21 Prazosin HCl 5 mg PO DAILY 01/25/21 01/25/21 Propranolol [Inderal] 10 mg PO TID 01/25/21 01/25/21 Previous Rx's Medication Instructions Recorded Melatonin 3 mg PO HS tablet 11/13/20 QUEtiapine [SEROquel] 25 mg PO DAILY tab 11/13/20 QUEtiapine [SEROquel] 300 mg PO HS tab 11/13/20 Topiramate [Topamax] 50 mg PO BID tab 11/13/20 Metoprolol Tartrate [Lopressor] 12.5 mg PO DAILY #60 tab 11/16/20 Pantoprazole [Protonix] 40 mg PO BID #60 tab 01/27/21 Allergies Allergy/AdvReac Type Severity Reaction Status Date / Time bee pollen Allergy Severe Anaphylaxis Verified 01/25/21 19:08 haloperidol [From Haldol] Allergy Severe QUIT Verified 01/25/21 19:08 BREATHING haloperidol lactate Allergy Severe QUIT Verified 01/25/21 19:08 [From Haldol] BREATHING latex Allergy Severe RASH-THROAT Verified 01/25/21 19:08 CLOSES tramadol Allergy Severe Nausea & Verified 01/25/21 19:08 Vomiting [place] Allergy Anaphylaxis Verified 01/25/21 19:08 coconut Allergy Anaphylaxis Verified 01/25/21 19:08 pineapple Allergy Anaphylaxis Verified 01/25/21 19:08 prednisone Allergy THROAT Verified 01/25/21 19:08 SWELLS spider venom Allergy Swelling Verified 01/25/21 19:08 Sulfa (Sulfonamide Allergy THROAT Verified 01/25/21 19:08 Antibiotics) SWELLS venom-wasp Allergy Swelling Verified 01/25/21 19:08 venom-wasp protein Allergy Swelling Verified 01/25/21 19:08 promethazine HCl AdvReac Severe Nausea & Verified 01/25/21 19:08 [From Phenergan] Vomiting amoxicillin AdvReac Nausea & Verified 01/25/21 19:08 Vomiting ANTS Allergy Mild Anaphylaxis Uncoded 01/25/21 19:08 Review of Systems ROS Statement: Those systems with pertinent positive or pertinent negative responses have been documented in the HPI. ROS Other: All systems not noted in ROS Statement are negative. Past Medical History Past Medical History: Asthma, Diabetes Mellitus, GERD/Reflux Additional Past Medical History / Comment(s): migraines, degenerative disk disease, endometriosis, lupus, pancreatitis, covid vaccine moderna History of Any Multi-Drug Resistant Organisms: None Reported Past Surgical History: Orthopedic Surgery Additional Past Surgical History / Comment(s): laparoscopc surgery for endometriosis, cyst removed from left foot, EGD, Past Anesthesia/Blood Transfusion Reactions: Previous Problems w/ Anesthesia Additional Past Anesthesia/Blood Transfusion Reaction / Comment(s): hard to wake up for 48-72 hours after laparoscopic surgery-was in hosp. for 3 days Past Psychological History: Anxiety, Depression, PTSD Smoking Status: Former smoker Past Alcohol Use History: None Reported Past Drug Use History: Marijuana - Past Family History Mother Family Medical History: No Reported History Additional Family Medical History / Comment(s): hx migraines Father Family Medical History: Coronary Artery Disease (CAD), Hypertension Additional Family Medical History / Comment(s): ddd, alcoholism & drug use General Exam Limitations: no limitations General appearance: alert, other (This is a well-developed, well-nourished female who continues to wear her sunglasses and hat to the light sensitivity. Initial temperature 98.4, pulse 111, respirations 16, blood pressure 125/88, pulse ox 97% on room air.) Head exam: Present: atraumatic, normocephalic, normal inspection Eye exam: Present: normal appearance, PERRL, EOMI Neck exam: Present: normal inspection. Absent: tenderness, meningismus, lymphadenopathy Respiratory exam: Present: normal lung sounds bilaterally. Absent: respiratory distress, wheezes, rales, rhonchi, stridor Cardiovascular Exam: Present: regular rate, tachycardia (Tachycardic with a heart rate of 111 upon arrival; physical exam reveals a heart rate of 90.), normal heart sounds. Absent: systolic murmur, diastolic murmur, rubs, gallop, clicks GI/Abdominal exam: Present: soft, tenderness (Right upper quadrant tenderness with palpation), guarding (Right upper quadrant guarding), normal bowel sounds. Absent: distended, rebound, rigid Neurological exam: Present: alert, oriented X3, CN II-XII intact Psychiatric exam: Present: flat affect Skin exam: Present: warm, dry, intact, normal color. Absent: rash Course Vital Signs 01/29/21 01/29/21 01/29/21 15:21 17:24 19:31 Temperature 98.4 F 97.8 F Pulse Rate 111 H 100 67 Respiratory 16 16 16 Rate Blood Pressure 125/88 128/85 120/78 O2 Sat by Pulse 97 99 99 Oximetry - Reevaluation(s) Reevaluation #1: 01/29/21 18:04. PO challenge initiated with ice chips and apple juice Medical Decision Making - Medical Decision Making 30-year-old female with a history of multiple hospital visits related to frequent migraines and chronic pancreatitis is evaluated for complaints of 4 day history of headache and abdominal pain. Upon physical exam, patient is noted to be wearing her sunglasses and a hat in attempt to shield her eyes from the light. Patient is also guarding the right upper quadrant of her abdomen. Initial heart rate is slightly elevated at 111. IV hydration provided with 1 L of normal saline, headache cocktail provided with minimal improvement in symptoms. Patient then given a dose of morphine with some improvement. Patient able to tolerate few bites of ice chips though she does state that it causes her discomfort. Discussed chronic nature of condition with patient and reassessed goals on the visit. Patient endorses recent hospitalization and does not wish to repeat this. Lipase level is decreased from previous visit and is within the normal range. This patient's case was discussed with my attending Dr. Rojas. Patient requests to be discharged home to follow up with primary care as well as endocrinology as she was previously instructed to do. Return parameters were discussed in detail. Patient verbalizes understanding and is agreeable with this plan. - Lab Data Result diagrams: 01/29/21 16:22 01/29/21 16:22 Lab Results 01/29/21 01/29/21 Range/Units 16:22 16:22 WBC 5.4 (3.8-10.6) k/uL RBC 4.18 (3.80-5.40) m/uL Hgb 12.9 (11.4-16.0) gm/dL Hct 37.5 (34.0-46.0) % MCV 89.7 (80.0-100.0) fL MCH 30.9 (25.0-35.0) pg MCHC 34.4 (31.0-37.0) g/dL RDW 13.7 (11.5-15.5) % Plt Count 237 (150-450) k/uL MPV 7.7 Neutrophils % 57 % Lymphocytes % 35 % Monocytes % 3 % Eosinophils % 4 % Basophils % 0 % Neutrophils # 3.1 (1.3-7.7) k/uL Lymphocytes # 1.9 (1.0-4.8) k/uL Monocytes # 0.2 (0-1.0) k/uL Eosinophils # 0.2 (0-0.7) k/uL Basophils # 0.0 (0-0.2) k/uL Sodium 135 L (137-145) mmol/L Potassium 4.3 (3.5-5.1) mmol/L Chloride 106 (98-107) mmol/L Carbon Dioxide 22 (22-30) mmol/L Anion Gap 7 mmol/L BUN 9 (7-17) mg/dL Creatinine 0.81 (0.52-1.04) mg/dL Est GFR (CKD-EPI)AfAm >90 (>60 ml/min/1.73 sqM) Est GFR (CKD-EPI)NonAf >90 (>60 ml/min/1.73 sqM) Glucose 187 H (74-99) mg/dL Calcium 9.8 (8.4-10.2) mg/dL Total Bilirubin 0.4 (0.2-1.3) mg/dL AST 30 (14-36) U/L ALT 24 (4-34) U/L Alkaline Phosphatase 75 (38-126) U/L Total Protein 7.0 (6.3-8.2) g/dL Albumin 3.7 (3.5-5.0) g/dL Lipase 141 (23-300) U/L Disposition Clinical Impression: Migraine headache, Abdominal pain, Nausea Disposition: HOME SELF-CARE Condition: Stable Instructions (If sedation given, give patient instructions): Migraine Headache (ED), Diet for Stomach Ulcers and Gastritis (ED), Abdominal Pain (ED) Additional Instructions: Rest. Increase fluids. Small frequent meals with foods that are easy to tolerate. Make the follow-up appointments that you were encouraged to do during your previ ous hospitalization. Return to the emergency department with any new, worsening, or concerning sympt oms. Is patient prescribed a controlled substance at d/c from ED?: No Referrals: Jorje Mayes MD [Primary Care Provider] - 1-2 days Time of Disposition: 19:16
[2021-01-29 16:32] LABS: Basophils % (A) 0 %; Eosinophils # (A) 0.2 k/uL (0-0.7); Eosinophils % (A) 4 %; HCT 37.5 % (34.0-46.0); HGB 12.9 gm/dL (11.4-16.0); Lymphocytes # (A) 1.9 k/uL (1.0-4.8); Lymphocytes % (A) 35 %; MCH 30.9 pg (25.0-35.0); MCHC 34.4 g/dL (31.0-37.0); MCV 89.7 fL (80.0-100.0); Mean Platelet Volume 7.7; Monocytes # (A) 0.2 k/uL (0-1.0); Monocytes % (A) 3 %; Neutrophils # (A) 3.1 k/uL (1.3-7.7); Neutrophils % (A) 57 %; Platelet Count 237 k/uL (150-450); RBC 4.18 m/uL (3.80-5.40); RDW 13.7 % (11.5-15.5); WBC 5.4 k/uL (3.8-10.6)
[2021-01-29 16:44] LABS: ALT 24 U/L (4-34); AST 30 U/L (14-36); African American GFR (CKD) >90 (>60 ml/min/1.73 sqM); Albumin 3.7 g/dL (3.5-5.0); Alkaline Phosphatase 75 U/L (38-126); Anion Gap 7 mmol/L; Blood Urea Nitrogen 9 mg/dL (7-17); Calcium 9.8 mg/dL (8.4-10.2); Carbon Dioxide 22 mmol/L (22-30); Chloride 106 mmol/L (98-107); Glucose 187 mg/dL (74-99); Lipase 141 U/L (23-300); Non-African American GFR(CKD) >90 (>60 ml/min/1.73 sqM); Potassium 4.3 mmol/L (3.5-5.1); Sodium 135 mmol/L (137-145); Total Bilirubin 0.4 mg/dL (0.2-1.3)
[2021-01-29] MEDS ORDERED: MORPHINE SULFATE 4 MG/ML SYRINGE IVP STA (17:12)
[2021-01-29 19:33] VITALS: BP 120/78; PULSE 67; TEMP 97.8
== END 2021-01-29 19:33 | disposition home or self-care (01) ==
LOC: EC 15:11
DX: G43.909 Migraine, unspecified, not intractable, without status migrainosus (principal); R10.11 Right upper quadrant pain; R11.0 Nausea; J45.909 Unspecified asthma, uncomplicated; E11.9 Type 2 diabetes mellitus without complications; K21.9 Gastro-esophageal reflux disease without esophagitis; F41.9 Anxiety disorder, unspecified; F32.9 Major depressive disorder, single episode, unspecified; F43.12 Post-traumatic stress disorder, chronic; F12.90 Cannabis use, unspecified, uncomplicated; Z88.1 Allergy status to other antibiotic agents; Z88.5 Allergy status to narcotic agent; Z88.0 Allergy status to penicillin; Z88.2 Allergy status to sulfonamides; Z87.891 Personal history of nicotine dependence; Z91.040 Latex allergy status; Z87.19 Personal history of other diseases of the digestive system
CPT/HCPCS: 99284; 96374; 96375 ×3; 96376; 96361; 36415; 80053; 83690; 85025; J2270; J1200; J2405; J1885

== ENCOUNTER 2021-01-31 17:59 | Emergency (ER) | payer OTHER ==
[2021-01-31] MEDS ORDERED: diphenhydrAMINE 50 MG/ML 1 ML VIAL IVP STA (18:50)
[2021-01-31] MEDS ORDERED: SODIUM CHLORIDE 0.9% 500 ML 500 ML IV STA (18:50)
[2021-01-31] MEDS ORDERED: HYDROmorphone 1 MG/ML 1 ML SYRINGE IVP STA ×2 (18:51→20:02)
[2021-01-31] MEDS ORDERED: ONDANSETRON 4 MG/2 ML VIAL IVP STA (18:51)
--- NOTE | 2021-01-31 20:04 | ED ---
General Adult HPI - General Chief complaint: Headache Stated complaint: headache, nausea Time Seen by Provider: 01/31/21 18:50 Source: patient, RN notes reviewed Mode of arrival: ambulatory Limitations: no limitations - History of Present Illness Initial comments: Patient is a 30-year-old female that presents to emergency department complaining of chronic migraine with no relief from at home medications. She notes she took Excedrin migraine at home with no relief. She notes she does follow-up with her neurologist on 02/04/2021. She notes that she will go to follow-up to get medications adjusted. She notes that she is having all her similar symptoms such as photophobia nausea headache across the forehead. She denied any new symptoms. She was otherwise well-appearing. She denied chest pain shortness of breath vomiting diarrhea constipation fever fatigue chills. - Related Data Home Medications Medication Instructions Recorded Confirmed ARIPiprazole [Abilify] 7.5 mg PO HS 08/13/20 01/25/21 Fenofibrate Nanocrystallized 145 mg PO HS 11/06/20 01/25/21 [Fenofibrate] Rimegepant Sulfate [Nurtec Odt] 75 mg PO DAILY PRN 11/06/20 01/25/21 tiZANidine HCL 4 mg PO BID PRN 11/06/20 01/25/21 Albuterol Sulfate [Proair Hfa] 1 - 2 puff INHALATION RT-Q6H PRN 11/11/20 01/25/21 Doxepin HCl [SINEquan] 150 mg PO HS 01/06/21 01/25/21 Fluticasone Nasal [place] [Flonase 2 spr EA NOSTRIL DAILY PRN 01/06/21 01/25/21 Nasal [place]] PARoxetine HCL [Paxil] 10 mg PO DAILY 01/06/21 01/25/21 Pioglitazone HCl 15 mg PO DAILY 01/06/21 01/25/21 busPIRone HCL 15 mg PO TID 01/06/21 01/25/21 clonazePAM [KlonoPIN] 0.5 mg PO Q7D PRN 01/06/21 01/25/21 hydrOXYzine pamoate [Vistaril] 50 mg PO QID PRN 01/06/21 01/25/21 Meclizine HCl 25 mg PO BID PRN 01/25/21 01/25/21 Pravastatin Sodium [Pravachol] 40 mg PO DAILY 01/25/21 01/25/21 Prazosin HCl 5 mg PO DAILY 01/25/21 01/25/21 Propranolol [Inderal] 10 mg PO TID 01/25/21 01/25/21 Previous Rx's Medication Instructions Recorded Melatonin 3 mg PO HS tablet 11/13/20 QUEtiapine [SEROquel] 25 mg PO DAILY tab 11/13/20 QUEtiapine [SEROquel] 300 mg PO HS tab 11/13/20 Topiramate [Topamax] 50 mg PO BID tab 11/13/20 Metoprolol Tartrate [Lopressor] 12.5 mg PO DAILY #60 tab 11/16/20 Pantoprazole [Protonix] 40 mg PO BID #60 tab 01/27/21 Allergies Allergy/AdvReac Type Severity Reaction Status Date / Time bee pollen Allergy Severe Anaphylaxis Verified 01/31/21 18:27 haloperidol [From Haldol] Allergy Severe QUIT Verified 01/31/21 18:27 BREATHING haloperidol lactate Allergy Severe QUIT Verified 01/31/21 18:27 [From Haldol] BREATHING latex Allergy Severe RASH-THROAT Verified 01/31/21 18:27 CLOSES tramadol Allergy Severe Nausea & Verified 01/31/21 18:27 Vomiting [place]ri[place] Allergy Anaphylaxis Verified 01/31/21 18:27 coconut Allergy Anaphylaxis Verified 01/31/21 18:27 pineapple Allergy Anaphylaxis Verified 01/31/21 18:27 prednisone Allergy THROAT Verified 01/31/21 18:27 SWELLS spider venom Allergy Swelling Verified 01/31/21 18:27 Sulfa (Sulfonamide Allergy THROAT Verified 01/31/21 18:27 Antibiotics) SWELLS venom-wasp Allergy Swelling Verified 01/31/21 18:27 venom-wasp protein Allergy Swelling Verified 01/31/21 18:27 promethazine HCl AdvReac Severe Nausea & Verified 01/31/21 18:27 [From Phenergan] Vomiting amoxicillin AdvReac Nausea & Verified 01/31/21 18:27 Vomiting ANTS Allergy Mild Anaphylaxis Uncoded 01/31/21 18:27 Review of Systems ROS Statement: Those systems with pertinent positive or pertinent negative responses have been documented in the HPI. ROS Other: All systems not noted in ROS Statement are negative. Past Medical History Past Medical History: Asthma, Diabetes Mellitus, GERD/Reflux Additional Past Medical History / Comment(s): migraines, degenerative disk disease, endometriosis, lupus, pancreatitis, covid vaccine moderna History of Any Multi-Drug Resistant Organisms: None Reported Past Surgical History: Orthopedic Surgery Additional Past Surgical History / Comment(s): laparoscopc surgery for endometriosis, cyst removed from left foot, EGD, Past Anesthesia/Blood Transfusion Reactions: Previous Problems w/ Anesthesia Additional Past Anesthesia/Blood Transfusion Reaction / Comment(s): hard to wake up for 48-72 hours after laparoscopic surgery-was in hosp. for 3 days Past Psychological History: Anxiety, Depression, PTSD Smoking Status: Former smoker Past Alcohol Use History: None Reported Past Drug Use History: Marijuana - Past Family History Mother Family Medical History: No Reported History Additional Family Medical History / Comment(s): hx migraines Father Family Medical History: Coronary Artery Disease (CAD), Hypertension Additional Family Medical History / Comment(s): ddd, alcoholism & drug use General Exam Limitations: no limitations General appearance: alert, in no apparent distress Head exam: Present: atraumatic, normocephalic, normal inspection Eye exam: Present: normal appearance, PERRL, EOMI. Absent: scleral icterus, conjunctival injection, periorbital swelling ENT exam: Present: normal exam, mucous membranes moist Neck exam: Present: normal inspection Respiratory exam: Present: normal lung sounds bilaterally. Absent: respiratory distress, wheezes, rales, rhonchi, stridor Cardiovascular Exam: Present: regular rate, normal rhythm, normal heart sounds. Absent: systolic murmur, diastolic murmur, rubs, gallop, clicks Neurological exam: Present: alert, oriented X3 Psychiatric exam: Present: normal affect Course Vital Signs 01/31/21 18:28 Temperature 98 F Pulse Rate 122 H Respiratory 18 Rate Blood Pressure 131/83 O2 Sat by Pulse 98 Oximetry Medical Decision Making - Medical Decision Making 30-year-old female with chronic headache for symptom medic control. 500 mL normal saline, 4 mg of Zofran, 50 mg Benadryl, 1 mg of Dilaudid ordered. Upon evaluation patient states similar better and is ready to discharge home. Patient requesting more pain medication prior to discharge. 1 mg of Dilaudid ordered. Case discussed with Dr. Granda, patient discharge home. Disposition Clinical Impression: Chronic headache, Nausea, Migraine headache Disposition: HOME SELF-CARE Condition: Stable Instructions (If sedation given, give patient instructions): Acute Headache (ED) Additional Instructions: Please return to the Emergency Department if symptoms worsen or any other concerns. Is patient prescribed a controlled substance at d/c from ED?: No Referrals: Jorje Mayes MD [Primary Care Provider] - 1-2 days Time of Disposition: 20:04
[2021-01-31 20:46] VITALS: BP 136/68; PULSE 96; RESP 20; TEMP 98.2
== END 2021-01-31 20:44 | disposition home or self-care (01) ==
LOC: EC 17:59
DX: G43.909 Migraine, unspecified, not intractable, without status migrainosus (principal); R11.0 Nausea; J45.909 Unspecified asthma, uncomplicated; E11.9 Type 2 diabetes mellitus without complications; F32.9 Major depressive disorder, single episode, unspecified; F41.9 Anxiety disorder, unspecified; F43.10 Post-traumatic stress disorder, unspecified; Z87.891 Personal history of nicotine dependence; F12.90 Cannabis use, unspecified, uncomplicated; K21.9 Gastro-esophageal reflux disease without esophagitis; Z79.51 Long term (current) use of inhaled steroids; Z79.899 Other long term (current) drug therapy; Z79.84 Long term (current) use of oral hypoglycemic drugs
CPT/HCPCS: 99283; 96374; 96375 ×2; 96376; 96361; J1200; J2405; J1170

== ENCOUNTER 2021-02-02 23:16 | Emergency (ER) | payer OTHER ==
--- NOTE | 2021-02-03 01:30 | ED ---
Headache HPI - General Chief Complaint: Headache Stated Complaint: Migraine Time Seen by Provider: 02/03/21 01:29 Source: RN notes reviewed, old records reviewed Mode of arrival: ambulatory Limitations: no limitations - History of Present Illness Initial Comments: This is a 30-year-old female presenting to the ER today. Patient Dese for evaluation. Chronic migraine patient does have history of migraine headaches will documented here in the emergency department. A she also has chest pain. Patient has no recent sick contacts or travel history no trauma no fever, no cough or congestion. Patient denies possibility of coronavirus. MD Complaint: headache, "migraine" -: days(s) Onset Description: gradual Severity: moderate Severity scale (1-10): 4 Consistency: constant Improves With: nothing Worsens With: none Associated Symptoms: nausea, photophobia, sensitivity to sound Other Symptoms: chest pain Treatments Prior to Arrival: none - Related Data Home Medications Medication Instructions Recorded Confirmed ARIPiprazole [Abilify] 7.5 mg PO HS 08/13/20 01/25/21 Fenofibrate Nanocrystallized 145 mg PO HS 11/06/20 01/25/21 [Fenofibrate] Rimegepant Sulfate [Nurtec Odt] 75 mg PO DAILY PRN 11/06/20 01/25/21 tiZANidine HCL 4 mg PO BID PRN 11/06/20 01/25/21 Albuterol Sulfate [Proair Hfa] 1 - 2 puff INHALATION RT-Q6H PRN 11/11/20 01/25/21 Doxepin HCl [SINEquan] 150 mg PO HS 01/06/21 01/25/21 Fluticasone Nasal [place] [Flonase 2 spr EA NOSTRIL DAILY PRN 01/06/21 01/25/21 Nasal [place]] PARoxetine HCL [Paxil] 10 mg PO DAILY 01/06/21 01/25/21 Pioglitazone HCl 15 mg PO DAILY 01/06/21 01/25/21 busPIRone HCL 15 mg PO TID 01/06/21 01/25/21 clonazePAM [KlonoPIN] 0.5 mg PO Q7D PRN 01/06/21 01/25/21 hydrOXYzine pamoate [Vistaril] 50 mg PO QID PRN 01/06/21 01/25/21 Meclizine HCl 25 mg PO BID PRN 01/25/21 01/25/21 Pravastatin Sodium [Pravachol] 40 mg PO DAILY 01/25/21 01/25/21 Prazosin HCl 5 mg PO DAILY 01/25/21 01/25/21 Propranolol [Inderal] 10 mg PO TID 01/25/21 01/25/21 Previous Rx's Medication Instructions Recorded Melatonin 3 mg PO HS tablet 11/13/20 QUEtiapine [SEROquel] 25 mg PO DAILY tab 11/13/20 QUEtiapine [SEROquel] 300 mg PO HS tab 11/13/20 Topiramate [Topamax] 50 mg PO BID tab 11/13/20 Metoprolol Tartrate [Lopressor] 12.5 mg PO DAILY #60 tab 11/16/20 Pantoprazole [Protonix] 40 mg PO BID #60 tab 01/27/21 Allergies Allergy/AdvReac Type Severity Reaction Status Date / Time bee pollen Allergy Severe Anaphylaxis Verified 02/03/21 00:15 haloperidol [From Haldol] Allergy Severe QUIT Verified 02/03/21 00:15 BREATHING haloperidol lactate Allergy Severe QUIT Verified 02/03/21 00:15 [From Haldol] BREATHING latex Allergy Severe RASH-THROAT Verified 02/03/21 00:15 CLOSES tramadol Allergy Severe Nausea & Verified 02/03/21 00:15 Vomiting [place] Allergy Anaphylaxis Verified 02/03/21 00:15 coconut Allergy Anaphylaxis Verified 02/03/21 00:15 pineapple Allergy Anaphylaxis Verified 02/03/21 00:15 prednisone Allergy THROAT Verified 02/03/21 00:15 SWELLS spider venom Allergy Swelling Verified 02/03/21 00:15 Sulfa (Sulfonamide Allergy THROAT Verified 02/03/21 00:15 Antibiotics) SWELLS venom-wasp Allergy Swelling Verified 02/03/21 00:15 venom-wasp protein Allergy Swelling Verified 02/03/21 00:15 promethazine HCl AdvReac Severe Nausea & Verified 02/03/21 00:15 [From Phenergan] Vomiting amoxicillin AdvReac Nausea & Verified 02/03/21 00:15 Vomiting ANTS Allergy Mild Anaphylaxis Uncoded 02/03/21 00:15 Review of Systems ROS Statement: Those systems with pertinent positive or pertinent negative responses have been documented in the HPI. ROS Other: All systems not noted in ROS Statement are negative. Past Medical History Past Medical History: Asthma, Diabetes Mellitus, GERD/Reflux Additional Past Medical History / Comment(s): migraines, degenerative disk disease, endometriosis, lupus, pancreatitis, covid vaccine moderna History of Any Multi-Drug Resistant Organisms: None Reported Past Surgical History: Orthopedic Surgery Additional Past Surgical History / Comment(s): laparoscopc surgery for endometriosis, cyst removed from left foot, EGD, Past Anesthesia/Blood Transfusion Reactions: Previous Problems w/ Anesthesia Additional Past Anesthesia/Blood Transfusion Reaction / Comment(s): hard to wake up for 48-72 hours after laparoscopic surgery-was in hosp. for 3 days Past Psychological History: Anxiety, Depression, PTSD Smoking Status: Former smoker Past Alcohol Use History: None Reported Past Drug Use History: Marijuana - Past Family History Mother Family Medical History: No Reported History Additional Family Medical History / Comment(s): hx migraines Father Family Medical History: Coronary Artery Disease (CAD), Hypertension Additional Family Medical History / Comment(s): ddd, alcoholism & drug use General Exam Limitations: no limitations General appearance: alert, in no apparent distress Head exam: Present: atraumatic, normocephalic, normal inspection Eye exam: Present: normal appearance, PERRL, EOMI. Absent: scleral icterus, conjunctival injection, periorbital swelling ENT exam: Present: normal exam, mucous membranes moist Neck exam: Present: normal inspection. Absent: tenderness, meningismus, lymphadenopathy Respiratory exam: Present: normal lung sounds bilaterally. Absent: respiratory distress, wheezes, rales, rhonchi, stridor Cardiovascular Exam: Present: regular rate, normal rhythm, normal heart sounds. Absent: systolic murmur, diastolic murmur, rubs, gallop, clicks GI/Abdominal exam: Present: soft, normal bowel sounds. Absent: distended, tenderness, guarding, rebound, rigid Extremities exam: Present: normal inspection, full ROM, normal capillary refill. Absent: tenderness, pedal edema, joint swelling, calf tenderness Back exam: Present: normal inspection Neurological exam: Present: alert, oriented X3, CN II-XII intact Psychiatric exam: Present: normal affect, normal mood Skin exam: Present: warm, dry, intact, normal color. Absent: rash Course Vital Signs 02/03/21 00:12 Temperature 97.9 F Pulse Rate 108 H Respiratory 20 Rate Blood Pressure 152/111 O2 Sat by Pulse 96 Oximetry - Reevaluation(s) Reevaluation #1: 02/03/21 02:29 Medical record is reviewed Reevaluation #2: 02/03/21 02:29 A patient has improvement and resolution of symptoms here in the ER Reevaluation #3: 02/03/21 02:29 Patient informed results and questions have been answered Medical Decision Making - Medical Decision Making 30 female to the emergency department today. She is presented today for evaluation of 2 complaints headache and chest pain. Chest x-ray and EKGs are negative headache is normal migraine and patient can be discharged home - EKG Data -: EKG Interpreted by Me (EKG shows sinus rhythm 87 ER 136 QRS 66 QTc 466) - Radiology Data Radiology results: report reviewed (Chest x-rays negative for acute disease), image reviewed Disposition Clinical Impression: Dizziness, Migraine headache, Atypical chest pain Disposition: HOME SELF-CARE Condition: Poor Instructions (If sedation given, give patient instructions): Acute Headache (ED) Is patient prescribed a controlled substance at d/c from ED?: No Referrals: Jorje Mayes MD [Primary Care Provider] - 1-2 days
[2021-02-03] MEDS ORDERED: PROCHLORPERAZINE 5 MG TAB PO STA (02:27)
[2021-02-03] MEDS ORDERED: HYDROmorphone 1 MG/ML 1 ML SYRINGE IM STA (02:27)
[2021-02-03] MEDS ORDERED: diphenhydrAMINE 50 MG CAP PO STA (02:27)
--- NOTE | 2021-02-03 03:09 | XR ---
EXAMINATION TYPE: XR chest 1V portable DATE OF EXAM: 02/03/2021 COMPARISON: 01/26/2021 HISTORY: Chest pain TECHNIQUE: Single view FINDINGS: Heart and mediastinum are normal. Lungs are clear. Diaphragm is normal. Bony thorax is inta ct. IMPRESSION: Normal chest. No adverse change.
[2021-02-03 03:21] VITALS: BP 132/82; PULSE 80; RESP 18; TEMP 97
== END 2021-02-03 03:22 | disposition home or self-care (01) ==
LOC: EC 23:16
DX: G43.909 Migraine, unspecified, not intractable, without status migrainosus (principal); R07.89 Other chest pain; E11.9 Type 2 diabetes mellitus without complications; K21.9 Gastro-esophageal reflux disease without esophagitis; F41.9 Anxiety disorder, unspecified; F32.9 Major depressive disorder, single episode, unspecified; F12.90 Cannabis use, unspecified, uncomplicated; Z79.84 Long term (current) use of oral hypoglycemic drugs; Z79.899 Other long term (current) drug therapy; Z87.891 Personal history of nicotine dependence; Z88.0 Allergy status to penicillin; Z88.2 Allergy status to sulfonamides; Z88.5 Allergy status to narcotic agent; Z88.8 Allergy status to other drugs, medicaments and biological substances; Z82.49 Family history of ischemic heart disease and other diseases of the circulatory system
CPT/HCPCS: 93005; 71045; 96372; 99285; S0183; J1170

== ENCOUNTER 2021-02-05 17:56 | Inpatient (IN) | payer MEDICAID, OTHER ==
[2021-02-05 20:17] LABS: Amphetamine Screen,Urine Not Detected (NotDetected); Barbiturate Screen,Urine Not Detected (NotDetected); Benzodiazepines Screen,Urine Not Detected (NotDetected); Cocaine Screen,Urine Not Detected (NotDetected); Methadone Screen, Urine Not Detected (NotDetected); Opiate Screen,Urine Detected (NotDetected); Phencyclidine Screen,Urine Not Detected (NotDetected); Tricyclic Antidepressant,Urine Detected (NotDetected); Urn Cannabinoid Scrn Not Detected (NotDetected)
[2021-02-05 20:18] LABS: Oxycodone Screen, Urine Not Detected (NotDetected)
--- NOTE | 2021-02-05 20:34 | ED ---
General Adult HPI - General Chief complaint: Psychiatric Symptoms Stated complaint: Migrane, and mental health Time Seen by Provider: 02/05/21 20:11 Source: patient Mode of arrival: ambulatory Limitations: no limitations - History of Present Illness Initial comments: Dictation was produced using amcure dictation software. please excuse any grammatical, word or spelling errors. Chief Complaint: 30-year-old female presents with suicidal ideation History of Present Illness: Patient is a 30-year-old female was presents emergency department for suicidal ideation. Patient is well-known to emergency department for a myriad of complaints. She is here today could she is feels suicidal. She states she has a plan but does not want to tell me. She did not harm herself. She states she is depressed about her life for the last 7 days. Patient denies any medical complaints. Denies any visual or auditory hallucinations. No symptoms of paranoia. The ROS documented in this emergency department record has been reviewed and confirmed by me. Those systems with pertinent positive or negative responses have been documented in the HPI. All other systems are other negative and/or noncontributory. PHYSICAL EXAM: General Impression: Alert and oriented x3, not in acute distress HEENT: Normocephalic atraumatic, extra-ocular movements intact, pupils equal and reactive to light bilaterally, mucous membranes moist. Cardiovascular: Heart regular rate and rhythm Chest: Able to complete full sentences, no retractions, no tachypnea Abdomen: abdomen soft, non-tender, non-distended, no organomegaly Musculoskeletal: Pulses present and equal in all extremities, no peripheral edema Motor: no focal deficits noted Neurological: CN II-XII grossly intact, no focal motor or sensory deficits noted Skin: Intact with no visualized rashes Psych: Tearful ED course: 30-year-old feel presents with suicidal ideation. vital signs upon arrival shows heart rate of 120, rest of vital signs within acceptable limits. She medically cleared for EPS evaluation. patient admitted to inpatient psych floor. - Related Data Home Medications Medication Instructions Recorded Confirmed ARIPiprazole [Abilify] 7.5 mg PO HS 08/13/20 01/25/21 Fenofibrate Nanocrystallized 145 mg PO HS 11/06/20 01/25/21 [Fenofibrate] Rimegepant Sulfate [Nurtec Odt] 75 mg PO DAILY PRN 11/06/20 01/25/21 tiZANidine HCL 4 mg PO BID PRN 11/06/20 01/25/21 Albuterol Sulfate [Proair Hfa] 1 - 2 puff INHALATION RT-Q6H PRN 11/11/20 01/25/21 Doxepin HCl [SINEquan] 150 mg PO HS 01/06/21 01/25/21 Fluticasone Nasal [place] [Flonase 2 spr EA NOSTRIL DAILY PRN 01/06/21 01/25/21 Nasal [place]] PARoxetine HCL [Paxil] 10 mg PO DAILY 01/06/21 01/25/21 Pioglitazone HCl 15 mg PO DAILY 01/06/21 01/25/21 busPIRone HCL 15 mg PO TID 01/06/21 01/25/21 clonazePAM [KlonoPIN] 0.5 mg PO Q7D PRN 01/06/21 01/25/21 hydrOXYzine pamoate [Vistaril] 50 mg PO QID PRN 01/06/21 01/25/21 Meclizine HCl 25 mg PO BID PRN 01/25/21 01/25/21 Pravastatin Sodium [Pravachol] 40 mg PO DAILY 01/25/21 01/25/21 Prazosin HCl 5 mg PO DAILY 01/25/21 01/25/21 Propranolol [Inderal] 10 mg PO TID 01/25/21 01/25/21 Previous Rx's Medication Instructions Recorded Melatonin 3 mg PO HS tablet 11/13/20 QUEtiapine [SEROquel] 25 mg PO DAILY tab 11/13/20 QUEtiapine [SEROquel] 300 mg PO HS tab 11/13/20 Topiramate [Topamax] 50 mg PO BID tab 11/13/20 Metoprolol Tartrate [Lopressor] 12.5 mg PO DAILY #60 tab 11/16/20 Pantoprazole [Protonix] 40 mg PO BID #60 tab 01/27/21 Allergies Allergy/AdvReac Type Severity Reaction Status Date / Time bee pollen Allergy Severe Anaphylaxis Verified 02/03/21 00:15 haloperidol [From Haldol] Allergy Severe QUIT Verified 02/05/21 18:49 BREATHING haloperidol lactate Allergy Severe QUIT Verified 02/05/21 18:49 [From Haldol] BREATHING latex Allergy Severe RASH-THROAT Verified 02/05/21 18:49 CLOSES tramadol Allergy Severe Nausea & Verified 02/05/21 18:49 Vomiting [place] Allergy Anaphylaxis Verified 02/05/21 18:49 coconut Allergy Anaphylaxis Verified 02/05/21 18:49 pineapple Allergy Anaphylaxis Verified 02/05/21 18:49 prednisone Allergy THROAT Verified 02/05/21 18:49 SWELLS spider venom Allergy Swelling Verified 02/05/21 18:49 Sulfa (Sulfonamide Allergy THROAT Verified 02/05/21 18:49 Antibiotics) SWELLS venom-wasp Allergy Swelling Verified 02/05/21 18:49 venom-wasp protein Allergy Swelling Verified 02/05/21 18:49 promethazine HCl AdvReac Severe Nausea & Verified 02/05/21 18:49 [From Phenergan] Vomiting amoxicillin AdvReac Nausea & Verified 02/05/21 18:49 Vomiting ANTS Allergy Mild Anaphylaxis Uncoded 02/05/21 18:49 Review of Systems ROS Statement: Those systems with pertinent positive or pertinent negative responses have been documented in the HPI. ROS Other: All systems not noted in ROS Statement are negative. Past Medical History Past Medical History: Asthma, Diabetes Mellitus, GERD/Reflux Additional Past Medical History / Comment(s): migraines, degenerative disk disease, endometriosis, lupus, pancreatitis, covid vaccine moderna History of Any Multi-Drug Resistant Organisms: None Reported Past Surgical History: Orthopedic Surgery Additional Past Surgical History / Comment(s): laparoscopc surgery for endometriosis, cyst removed from left foot, EGD, Past Anesthesia/Blood Transfusion Reactions: Previous Problems w/ Anesthesia Additional Past Anesthesia/Blood Transfusion Reaction / Comment(s): hard to wake up for 48-72 hours after laparoscopic surgery-was in hosp. for 3 days Past Psychological History: Anxiety, Depression, PTSD Smoking Status: Former smoker Past Alcohol Use History: None Reported Past Drug Use History: Marijuana - Past Family History Mother Family Medical History: No Reported History Additional Family Medical History / Comment(s): hx migraines Father Family Medical History: Coronary Artery Disease (CAD), Hypertension Additional Family Medical History / Comment(s): ddd, alcoholism & drug use General Exam Limitations: no limitations Course Vital Signs 02/05/21 18:46 Temperature 98.5 F Pulse Rate 120 H Respiratory 22 Rate Blood Pressure 173/123 O2 Sat by Pulse 99 Oximetry Medical Decision Making - Lab Data Lab Results 02/05/21 02/05/21 02/06/21 Range/Units 19:58 19:58 00:07 Urine HCG, Qual Not Detected (Not Detectd) Urine Opiates Screen Detected H (NotDetected) Ur Oxycodone Screen Not Detected (NotDetected) Urine Methadone Screen Not Detected (NotDetected) Ur Propoxyphene Screen Not Detected (NotDetected) Ur Barbiturates Screen Not Detected (NotDetected) U Tricyclic Antidepress Detected H (NotDetected) Ur Phencyclidine Scrn Not Detected (NotDetected) Ur Amphetamines Screen Not Detected (NotDetected) U Methamphetamines Scrn Not Detected (NotDetected) U Benzodiazepines Scrn Not Detected (NotDetected) Urine Cocaine Screen Not Detected (NotDetected) U Marijuana (THC) Screen Not Detected (NotDetected) Coronavirus (PCR) Not Detected (Not Detectd) Disposition Clinical Impression: Suicidal ideation Disposition: ADMITTED IP TO THIS HOSP Condition: Fair
[2021-02-05] MEDS ORDERED: ACETAMINOPHEN TAB 500 MG TAB PO STA (21:10)
[2021-02-06] MEDS ORDERED: ONDANSETRON ODT 4 MG TAB PO STA (00:13)
[2021-02-06] MEDS ORDERED: LORazepam 1 MG TAB PO PRN (00:36)
[2021-02-06] MEDS ORDERED: LORazepam 2 MG/ML INJ IM PRN (00:39)
[2021-02-06] MEDS ORDERED: haloperidoL 1 MG TAB PO PRN (01:45)
[2021-02-06] MEDS ORDERED: hydrOXYzine pamoate 25 MG CAP PO PRN (01:45)
[2021-02-06] MEDS ORDERED: HALOPERIDOL LACTATE 5 MG/ML 1 ML VIAL IM PRN (02:00)
[2021-02-06] MEDS: TOPIRAMATE 25 MG TAB PO SCH ×3 (02:00→23:58)
[2021-02-06] MEDS ORDERED: ACETAMINOPHEN TAB 325 MG TAB PO PRN (02:00)
[2021-02-06] MEDS: PANTOPRAZOLE 40 MG TABLET PO SCH ×3 (02:01→23:58)
[2021-02-06] MEDS: PRAZOSIN 1 MG CAP PO SCH ×2 (02:01→07:54)
[2021-02-06] MEDS: QUEtiapine 100 MG TAB PO SCH ×2 (02:07→23:57)
[2021-02-06] MEDS: tiZANidine 4 MG TAB PO PRN (02:07)
[2021-02-06] MEDS ORDERED: MAG HYDROX/AL HYDROX/SIMETH 30 ML CUP PO PRN (04:00)
[2021-02-06] MEDS ORDERED: ALBUTEROL HFA INHALER INHALATION PRN (08:00)
[2021-02-06] MEDS ORDERED: PROPRANOLOL 10 MG TAB PO SCH (09:00)
[2021-02-06] MEDS ORDERED: FLUTICASONE 50MCG/SPRAY NASAL 16GM EA NOSTRIL PRN (09:00)
[2021-02-06] MEDS ORDERED: METOPROLOL TARTRATE 12.5 MG TAB PO SCH (09:00)
[2021-02-06] MEDS ORDERED: QUEtiapine 25 MG TAB PO SCH (09:00)
[2021-02-06] MEDS ORDERED: NON FORMULARY DRUG (Rimegepant Sulfate [Nurtec Odt] 75 MG Tab.Rapdis) PO PRN (09:00)
[2021-02-06] MEDS ORDERED: MECLIZINE 25 MG TAB PO PRN (09:00)
[2021-02-06] MEDS: NICOTINE 14MG/24HR PATCH TRANSDERM SCH (09:45)
[2021-02-06] MEDS: PRAVASTATIN SODIUM 40 MG TAB PO SCH (09:45)
[2021-02-06] MEDS: PIOGLITAZONE 15 MG TAB PO SCH (09:45)
[2021-02-06] MEDS ORDERED: PROPRANOLOL 20 MG TAB PO STA (10:06)
[2021-02-06] MEDS ORDERED: KETOROLAC 15 MG/ML 1 ML VIAL IM STA (10:24)
[2021-02-06] MEDS ORDERED: diphenhydrAMINE 25 MG CAP PO STA (10:25)
[2021-02-06] MEDS ORDERED: PROCHLORPERAZINE 5 MG TAB PO STA (10:25)
--- NOTE | 2021-02-06 10:31 | P.CONS ---
History of Present Illness - Reason for Consult Migraine - History of Present Illness 30-year-old pleasant female admitted to psychiatric floor for suicidal ideation. Patient is having severe migraine headache. Patient usually takes sumatriptan but presently tachycardic. Patient also uses propranolol for migraine prevention and patient is also on Topamax for migraine prevention. On these medications are helping at home patient make an attacks more frequent now. She denied any nausea vomiting, denied any weakness REVIEW OF SYSTEMS: CONSTITUTIONAL: No fever, no malaise, no fatigue. HEENT: No recent visual problems or hearing problems. Denied any sore throat. CARDIOVASCULAR: No chest pain, orthopnea, PND, no palpitations, no syncope. PULMONARY: No shortness of breath, no cough, no hemoptysis. GASTROINTESTINAL: No diarrhea, no nausea, no vomiting, no abdominal pain. NEUROLOGICAL: no weakness, no numbness. HEMATOLOGICAL: Denies any bleeding or petechiae. GENITOURINARY: Denies any burning micturition, frequency, or urgency. MUSCULOSKELETAL/RHEUMATOLOGICAL: Denies any joint pain, swelling, or any muscle pain. ENDOCRINE: Denies any polyuria or polydipsia. The rest of the 14-point review of systems is negative. PHYSICAL EXAMINATION: GENERAL: The patient is alert and oriented x3, not in any acute distress. Well developed, well nourished. HEENT: Pupils are round and equally reacting to light. EOMI. No scleral icterus. No conjunctival pallor. Normocephalic, atraumatic. No pharyngeal erythema. No thyromegaly. CARDIOVASCULAR: S1 and S2 present. No murmurs, rubs, or gallops. PULMONARY: Chest is clear to auscultation, no wheezing or crackles. ABDOMEN: Soft, nontender, nondistended, normoactive bowel sounds. No palpable organomegaly. MUSCULOSKELETAL: No joint swelling or deformity. EXTREMITIES: No cyanosis, clubbing, or pedal edema. NEUROLOGICAL: Gross neurological examination did not reveal any focal deficits. SKIN: No rashes. Assessment and plan -Acute migraine attack: Patient will be given and muscular Toradol, by mouth Compazine and by mouth Benadryl followed by as needed Motrin. Patient will restart back on propranolol, because of tachycardia which cannot use sumatriptan at this time. Continue Topamax -Sinus tachycardia reflex tachycardia as patient I did not receive a beta heidi today -Asthma without any acute exacerbation -Diabetes mellitus patient will be resumed on home regimen monitor blood sugars -Gastritis. Reflux disease -Depression and suicidal ideation management as per family's was Past Medical History Past Medical History: Asthma, Diabetes Mellitus, GERD/Reflux Additional Past Medical History / Comment(s): migraines, degenerative disk disease, endometriosis, lupus, pancreatitis, covid vaccine moderna History of Any Multi-Drug Resistant Organisms: None Reported Past Surgical History: Orthopedic Surgery Additional Past Surgical History / Comment(s): laparoscopc surgery for en dometriosis, cyst removed from left foot, EGD, Past Anesthesia/Blood Transfusion Reactions: Previous Problems w/ Anesthesia Additional Past Anesthesia/Blood Transfusion Reaction / Comm: hard to wake up for 48-72 hours after laparoscopic surgery-was in hosp. for 3 days Past Psychological History: Anxiety, Depression, PTSD Smoking Status: Never smoker Past Alcohol Use History: None Reported Additional Past Alcohol Use History / Comment(s): pt states that she occasionally has a "glass or two" of vodka that she mixes with Mountain Dew. Past Drug Use History: Marijuana Additional Drug Use History / Comment(s): pt states that "I hit the vape constantly through the day." pt reports that she has a 100 mg vape pen that she refills 6 times per day. - Past Family History Mother Family Medical History: No Reported History Additional Family Medical History / Comment(s): hx migraines Father Family Medical History: Coronary Artery Disease (CAD), Hypertension Additional Family Medical History / Comment(s): ddd, alcoholism & drug use Medications and Allergies Home Medications Medication Instructions Recorded Confirmed Type ARIPiprazole [Abilify] 7.5 mg PO HS 08/13/20 01/25/21 History Fenofibrate Nanocrystallized 145 mg PO HS 11/06/20 01/25/21 History [Fenofibrate] Rimegepant Sulfate [Nurtec Odt] 75 mg PO DAILY PRN 11/06/20 01/25/21 History tiZANidine HCL 4 mg PO BID PRN 11/06/20 01/25/21 History Albuterol Sulfate [Proair Hfa] 1 - 2 puff INHALATION RT-Q6H PRN 11/11/20 01/25/21 History Melatonin 3 mg PO HS tablet 11/13/20 01/25/21 Rx QUEtiapine [SEROquel] 25 mg PO DAILY tab 11/13/20 01/25/21 Rx QUEtiapine [SEROquel] 300 mg PO HS tab 11/13/20 01/25/21 Rx Topiramate [Topamax] 50 mg PO BID tab 11/13/20 01/25/21 Rx Metoprolol Tartrate [Lopressor] 12.5 mg PO DAILY #60 tab 11/16/20 01/25/21 Rx Doxepin HCl [SINEquan] 150 mg PO HS 01/06/21 01/25/21 History Fluticasone Nasal [place] [Flonase 2 spr EA NOSTRIL DAILY PRN 01/06/21 01/25/21 History Nasal [place]] PARoxetine HCL [Paxil] 10 mg PO DAILY 01/06/21 01/25/21 History Pioglitazone HCl 15 mg PO DAILY 01/06/21 01/25/21 History busPIRone HCL 15 mg PO TID 01/06/21 01/25/21 History clonazePAM [KlonoPIN] 0.5 mg PO Q7D PRN 01/06/21 01/25/21 History hydrOXYzine pamoate [Vistaril] 50 mg PO QID PRN 01/06/21 01/25/21 History Meclizine HCl 25 mg PO BID PRN 01/25/21 01/25/21 History Pravastatin Sodium [Pravachol] 40 mg PO DAILY 01/25/21 01/25/21 History Prazosin HCl 5 mg PO DAILY 01/25/21 01/25/21 History Propranolol [Inderal] 10 mg PO TID 01/25/21 01/25/21 History Pantoprazole [Protonix] 40 mg PO BID #60 tab 01/27/21 Rx Allergies Allergy/AdvReac Type Severity Reaction Status Date / Time bee pollen Allergy Severe Anaphylaxis Verified 02/03/21 00:15 haloperidol [From Haldol] Allergy Severe QUIT Verified 02/05/21 18:49 BREATHING haloperidol lactate Allergy Severe QUIT Verified 02/05/21 18:49 [From Haldol] BREATHING latex Allergy Severe RASH-THROAT Verified 02/05/21 18:49 CLOSES tramadol Allergy Severe Nausea & Verified 02/05/21 18:49 Vomiting [place] Allergy Anaphylaxis Verified 02/05/21 18:49 coconut Allergy Anaphylaxis Verified 02/05/21 18:49 pineapple Allergy Anaphylaxis Verified 02/05/21 18:49 prednisone Allergy THROAT Verified 02/05/21 18:49 SWELLS spider venom Allergy Swelling Verified 02/05/21 18:49 Sulfa (Sulfonamide Allergy THROAT Verified 02/05/21 18:49 Antibiotics) SWELLS venom-wasp Allergy Swelling Verified 02/05/21 18:49 venom-wasp protein Allergy Swelling Verified 02/05/21 18:49 promethazine HCl AdvReac Severe Nausea & Verified 02/05/21 18:49 [From Phenergan] Vomiting amoxicillin AdvReac Nausea & Verified 02/05/21 18:49 Vomiting ANTS Allergy Mild Anaphylaxis Uncoded 02/05/21 18:49 Physical Exam Vitals: Vital Signs Temp Pulse Pulse Resp BP BP Pulse Ox 02/06/21 09:50 98.9 F 148 H 16 106/60 98 02/06/21 01:12 96.6 F L 114 H 18 150/99 98 02/05/21 18:46 98.5 F 120 H 22 173/123 99 Intake and Output 02/05/21 02/06/21 02/06/21 22:59 06:59 14:59 Other: Weight 104.326 kg 100.5 kg Results Labs: Abnormal Lab Results - Last 24 Hours (Table) 02/05/21 Range/Units 19:58 Urine Opiates Screen Detected H (NotDetected) U Tricyclic Antidepress Detected H (NotDetected)
[2021-02-06] MEDS ORDERED: PROCHLORPERAZINE 10 MG TAB PO STA (10:33)
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
[2021-02-06] MEDS ORDERED: IBUPROFEN 400 MG TAB PO PRN (14:00)
[2021-02-06] MEDS ORDERED: PRAZOSIN 1 MG CAP PO SCH (21:00)
[2021-02-06] MEDS ORDERED: DOXEPIN 25 MG CAP PO SCH (21:00)
[2021-02-06] MEDS ORDERED: ESCITALOPRAM 5 MG TAB PO SCH (21:00)
[2021-02-06] MEDS: PROPRANOLOL 20 MG TAB PO SCH (23:57)
[2021-02-07] MEDS: tiZANidine 4 MG TAB PO PRN (00:01)
[2021-02-07] MEDS: FENOFIBRATE 160 MG TAB PO SCH ×2 (00:01→21:26)
[2021-02-07] MEDS ORDERED: METOPROLOL TARTRATE 25 MG TAB PO SCH (09:00)
[2021-02-07] MEDS: NICOTINE 14MG/24HR PATCH TRANSDERM SCH (10:18)
[2021-02-07] MEDS: PANTOPRAZOLE 40 MG TABLET PO SCH ×3 (10:19→21:11)
[2021-02-07] MEDS: TOPIRAMATE 25 MG TAB PO SCH ×3 (10:20→21:26)
[2021-02-07] MEDS: PRAVASTATIN SODIUM 40 MG TAB PO SCH (10:20)
[2021-02-07] MEDS: PIOGLITAZONE 15 MG TAB PO SCH (10:20)
[2021-02-07] MEDS: PROPRANOLOL 20 MG TAB PO SCH (10:20)
[2021-02-07 10:35] LABS: Glucose,Whole Blood 180 mg/dL (75-99)
--- NOTE | 2021-02-07 10:56 | P.PN ---
Progress Note - Text Progress Note Date: 02/07/21 Interval History: Patient was seen resting in bed and was directable and agreeable to speak with sign writer letterer or painter in her room. The patient endorsed vague auditory hallucinations that were telling her to harm herself at approximately 1600 yesterday. Patient began to punch/Suicide of her head with a closed fist. The patient was attempted to redirect however was continuing to do so. The patient had to receive Haldol IM after which she calmed down. This morning, the patient does admit that she was experiencing auditory hallucinations that were telling her that she was worthless and that there was no hope. She is currently not endorsing any auditory or visual hallucinations at this time. She is not reporting any suicidal or homicidal ideation, intention, and/or plan. She is not reporting any issues with her sleep or her appetite. She states that she feels constantly tired and lightheaded. Mental Status Exam: General Appearance: Patient appears to be stated age is alert, directable, and cooperative. Obese body habitus. Dressed in a hooded sweatshirt. Behavior: Patient is calmly lying in bed without any agitated behavior. Eye contact is poor. Speech: Patient's speech is monotone, nonspontaneous, low in volume. Mood/Affect: Mood is "not good." Affect is blunted. Suicidality/Homicidality: Patient denies having any suicidal or homicidal ideation intent or plan. Perceptions: Patient denies any visual hallucinations and denies any auditory hallucinations Though content/process: There is no evidence of any delusional thought content and thought process is linear and goal-directed. Memory and concentration: AOX3, grossly intact for the purposes of this session Judgment and insight: Poor Vital Signs Temp 98.9 F 02/06/21 09:50 Pulse 72 02/07/21 10:23 Resp 16 02/07/21 08:50 BP 82/54 02/07/21 10:23 Pulse Ox 94 L 02/06/21 23:54 Laboratory Results - Last 24 Hours 02/07/21 10:33 POC Glucose (mg/dL) 180 H POC Glu Learning And Development Associate ID Nayeli Dhaliwal Assessment Major depressive disorder, recurrent, severe, with anxious features Posttraumatic stress disorder Borderline personality disorder Plan: -Patient continues to meet criteria for inpatient psychiatric admission for symptom stabilization and safety. Patient has signed adult voluntary form and medication consent and was placed in patient's chart. -Medications: Increase Lexapro to 10 mg by mouth at bedtime for dennys/anxiety/PTSD Due to the patient's low blood pressure, we will decrease propranolol to 10 mg by mouth twice a day for management of migraine headaches, and we will also decrease prazosin to 3 mg at bedtime for PTSD related nightmares. Continue Topamax 50 mg by mouth twice a day for migraine headaches Continue Seroquel 200 mg at bedtime for mood augmentation Continue Vistaril when necessary for anxiety -When necessary Vistaril and Haldol for agitation/aggression. -NRT - nicotine patch -SW on board for discharge planning. Encouraged the patient to participate in milieu.
[2021-02-07 11:06] LABS: Basophils % (A) 0 %; Eosinophils # (A) 0.1 k/uL (0-0.7); Eosinophils % (A) 2 %; HCT 40.8 % (34.0-46.0); HGB 13.1 gm/dL (11.4-16.0); Lymphocytes # (A) 2.9 k/uL (1.0-4.8); Lymphocytes % (A) 50 %; MCH 30.3 pg (25.0-35.0); MCHC 32.2 g/dL (31.0-37.0); Mean Platelet Volume 7.8; Monocytes # (A) 0.2 k/uL (0-1.0); Monocytes % (A) 4 %; Neutrophils # (A) 2.4 k/uL (1.3-7.7); Neutrophils % (A) 42 %; Platelet Count 258 k/uL (150-450); RBC 4.34 m/uL (3.80-5.40); RDW 13.3 % (11.5-15.5); WBC 5.8 k/uL (3.8-10.6)
[2021-02-07 11:31] LABS: Calcium 10.8 mg/dL (8.4-10.2); Potassium 4.4 mmol/L (3.5-5.1); Total Bilirubin 0.6 mg/dL (0.2-1.3); Total Protein 7.2 g/dL (6.3-8.2)
[2021-02-07] MEDS: ONDANSETRON ODT 4 MG TAB PO PRN ×2 (15:13→21:17)
[2021-02-07 15:17] LABS: Amylase 47 U/L (30-110); Lipase 170 U/L (23-300)
[2021-02-07] MEDS: PROPRANOLOL 10 MG TAB PO SCH (21:12)
[2021-02-07] MEDS: PRAZOSIN 1 MG CAP PO SCH (21:12)
[2021-02-07] MEDS: QUEtiapine 100 MG TAB PO SCH ×2 (21:26→23:19)
[2021-02-07] MEDS: MELATONIN 3 MG TABLET PO SCH ×2 (21:26)
[2021-02-07] MEDS: ESCITALOPRAM 10 MG TAB PO SCH (21:26)
[2021-02-08] MEDS: tiZANidine 4 MG TAB PO PRN (08:40)
[2021-02-08] MEDS: NICOTINE 14MG/24HR PATCH TRANSDERM SCH (08:40)
[2021-02-08] MEDS: PIOGLITAZONE 15 MG TAB PO SCH (08:41)
[2021-02-08] MEDS: PANTOPRAZOLE 40 MG TABLET PO SCH ×2 (08:41→21:15)
[2021-02-08] MEDS: PRAVASTATIN SODIUM 40 MG TAB PO SCH (08:41)
[2021-02-08] MEDS: TOPIRAMATE 25 MG TAB PO SCH ×2 (08:41→21:10)
[2021-02-08] MEDS: PROPRANOLOL 10 MG TAB PO SCH ×2 (08:42→21:11)
[2021-02-08] MEDS ORDERED: QUEtiapine 50 MG TAB PO STA (16:23)
--- NOTE | 2021-02-08 16:53 | PN ---
PROGRESS NOTE DATE OF SERVICE: 02/08/2021. CHIEF COMPLAINT: The patient was depressed. She had many difficult complaints including physical complaints. She presented to the ED with suicide thinking. INTERVAL HISTORY: Patient has been doing fair. She had a quiet day yesterday. She tends to keep to herself. She spends a fair amount of time in her room. She did not attend groups yesterday. She did not really offer a reason as to why groups might be difficult for her. She does say that she gets caught up in her thoughts and a lot of negative self talk. She has not been sleeping well at night. Today she has been up. Again she chose not to attend groups. She acknowledges that she continues with some voices in her head generally saying negative things about her. She said that when she had been on Seroquel in the morning time that did seem to help her have a little less anxiety in the day. The morning dose has been discontinued. She continues with low blood pressure, though it has come up in the last 2 days. Her vital signs this morning included BP 102/56, pulse 76 and regular, temp 97.7, respirations 18, at 7:15 am this morning. She continues on Prazosen 3 mg a day at night. She says it does not seem to help much with nightmares that she gets. She continues to have some focus on her marital situation and how her of 6 years is not very supportive of her. She says when she thinks about returning home, it just sets off a lot of anxiety for her. She tolerates psychotropic medications. MENTAL STATUS: Patient sat without restlessness. She attended the sit in a slumped posture with her head down, mostly she looked forward and did not give much eye contact at all. Psychomotor activity was slowed. Speech was monotone. She answered questions with brief responses. She did not say much. Her affect was flat, mood depressed. She was significantly distressed. She continues to report auditory hallucinations. She acknowledges that some of her voices make statements about harming herself. She does not have any plans or intent in that direction. She is oriented and alert. ASSESSMENT: I will continue the current diagnosis and treatment plan. I reviewed medication issues with the patient. It is noted that the patient came back to my office in the afternoon stating she was quite distressed, she was anxious. She could not quiet her thoughts down again. Again her main focus was on distress she experiences about her home situation. At this point, I will give her Seroquel 50 mg as a one time dose. If she shows some response to the additional dose of Seroquel I would look to restart a morning dose of Seroquel or least provide a p.r.n. dose. She does take 300 mg at bedtime. There might be appropriateness for increasing her Lexapro further. We will focus on stabilization and discharge planning. VAL / DORINDAN: [id number] / MTDD
[2021-02-08] MEDS: FENOFIBRATE 160 MG TAB PO SCH (21:11)
[2021-02-08] MEDS: QUEtiapine 100 MG TAB PO SCH (21:14)
[2021-02-08] MEDS: PRAZOSIN 1 MG CAP PO SCH (21:14)
[2021-02-08] MEDS: MELATONIN 3 MG TABLET PO SCH (21:15)
[2021-02-08] MEDS: traZODone HCL 100 MG TAB PO SCH (21:16)
[2021-02-08] MEDS: ESCITALOPRAM 10 MG TAB PO SCH (21:17)
[2021-02-09] MEDS: PIOGLITAZONE 15 MG TAB PO SCH (12:10)
[2021-02-09] MEDS: TOPIRAMATE 25 MG TAB PO SCH ×2 (12:10→20:27)
[2021-02-09] MEDS: PRAVASTATIN SODIUM 40 MG TAB PO SCH (12:10)
[2021-02-09] MEDS: PANTOPRAZOLE 40 MG TABLET PO SCH ×2 (12:10→20:26)
[2021-02-09] MEDS: NICOTINE 14MG/24HR PATCH TRANSDERM SCH (12:10)
--- NOTE | 2021-02-09 12:38 | PN ---
PROGRESS NOTE DATE OF SERVICE: 02/09/2021. CHIEF COMPLAINT: The patient was depressed. She had many difficult complaints including physical complaints. She presented to the ED with suicidal thinking. INTERVAL HISTORY: Patient has been doing fair. She mostly had a quiet day yesterday as noted in my documentation yesterday. She was complaining of a lot of anxiety. She talked about how all when she starts thinking about discharge and returning home at that set off the most anxiety for her. She received a p.r.n. dose of Seroquel 50 mg. She continued with her regular dose of Seroquel at night, namely 300 mg. She slept well last night. Today, the patient said she is feeling somewhat better. She does note that the p.r.n. Seroquel helped her, though she did not feel she needed any extra dose today. She says she is tired though she does have a little better outlook and less anxiety. She has been cooperative with care. She chose not to attend group this morning. She appears to tolerate her psychotropic medication. MENTAL STATUS: Patient sat without restlessness. Eye contact was fair. Psychomotor activity was slowed. She answered questions with brief responses. She did not say a lot. Her affect was blunted. Her mood was quiet. She did not appear to be significantly distressed. There was no indication of thought disorder. She voiced no thoughts of harm. She is oriented and alert. ASSESSMENT: I will continue the current diagnosis and treatment plan. Continue psychotropic medications the same. I briefly reviewed medication issues with the patient. I provided information in regard to potential side effects of Seroquel as well as concerns related to metabolics and movement disorder issues. We will focus on stabilization and discharge planning. MMDERICKL / DORINDAN: [id number] /
[2021-02-09] MEDS: PROPRANOLOL 10 MG TAB PO SCH ×2 (13:25→20:27)
[2021-02-09] MEDS: ONDANSETRON ODT 4 MG TAB PO PRN (16:53)
[2021-02-09] MEDS: tiZANidine 4 MG TAB PO PRN (18:55)
[2021-02-09] MEDS: ESCITALOPRAM 10 MG TAB PO SCH (20:25)
[2021-02-09] MEDS: MELATONIN 3 MG TABLET PO SCH (20:26)
[2021-02-09] MEDS: PRAZOSIN 1 MG CAP PO SCH (20:26)
[2021-02-09] MEDS: FENOFIBRATE 160 MG TAB PO SCH (20:26)
[2021-02-09] MEDS: traZODone HCL 100 MG TAB PO SCH (20:27)
[2021-02-09] MEDS: QUEtiapine 100 MG TAB PO SCH (20:27)
[2021-02-10 06:42] VITALS: BP 80/41; PULSE 73; RESP 16; TEMP 97.4
[2021-02-10] MEDS: NICOTINE 14MG/24HR PATCH TRANSDERM SCH (09:15)
[2021-02-10] MEDS: PROPRANOLOL 10 MG TAB PO SCH (09:19)
[2021-02-10] MEDS: PRAVASTATIN SODIUM 40 MG TAB PO SCH (09:20)
[2021-02-10] MEDS: PIOGLITAZONE 15 MG TAB PO SCH (09:20)
[2021-02-10] MEDS: PANTOPRAZOLE 40 MG TABLET PO SCH (09:20)
[2021-02-10] MEDS: TOPIRAMATE 25 MG TAB PO SCH (09:20)
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
== END 2021-02-10 12:15 | disposition home or self-care (01) | DRG 885 ==
LOC: EC 17:56 → 3MHU 02-06 00:22
PROVIDERS: ADMIT Psychiatry & Neurology Psychiatry; ATTEND Psychiatry & Neurology Psychiatry
DX: F33.2 Major depressive disorder, recurrent severe without psychotic features (principal); R45.851 Suicidal ideations; K86.1 Other chronic pancreatitis; E11.9 Type 2 diabetes mellitus without complications; F43.10 Post-traumatic stress disorder, unspecified; K29.70 Gastritis, unspecified, without bleeding; Z20.822 Contact with and (suspected) exposure to COVID-19; M32.9 Systemic lupus erythematosus, unspecified; F60.3 Borderline personality disorder; G43.909 Migraine, unspecified, not intractable, without status migrainosus; G47.00 Insomnia, unspecified; J45.909 Unspecified asthma, uncomplicated; K21.9 Gastro-esophageal reflux disease without esophagitis; Z79.899 Other long term (current) drug therapy; Z87.891 Personal history of nicotine dependence; Z91.030 Bee allergy status; Z91.040 Latex allergy status; Z88.1 Allergy status to other antibiotic agents; Z91.048 Other nonmedicinal substance allergy status; Z88.8 Allergy status to other drugs, medicaments and biological substances; Z91.02 Food additives allergy status; Z87.42 Personal history of other diseases of the female genital tract
CPT/HCPCS: 80053; 80061; 80306; 81025; 82075; 82150; 83036; 83690; 84443; 85025; 87635; 99285

== ENCOUNTER 2021-02-11 22:41 | Emergency (ER) | payer OTHER ==
[2021-02-11 23:13] VITALS: BP 122/65; PULSE 108; RESP 22; TEMP 98.7
[2021-02-11] MEDS ORDERED: ONDANSETRON ODT 4 MG TAB PO STA (23:48)
[2021-02-11] MEDS ORDERED: HYDROmorphone 1 MG/ML 1 ML SYRINGE IM STA (23:48)
[2021-02-11] MEDS ORDERED: diphenhydrAMINE 50 MG CAP PO STA (23:48)
--- NOTE | 2021-02-11 23:49 | ED ---
Headache HPI - General Chief Complaint: Headache Stated Complaint: Abdominal pain, headache Source: RN notes reviewed Mode of arrival: ambulatory Limitations: no limitations - History of Present Illness Initial Comments: 30-year-old female sent emergency Department with chief complaint of headache. Patient has chronic headaches. Patient states his headache started usual. Kerry ent did have some nausea and vomiting and vomiting has resolved. No blurred vision mild photophobia. Denies any fevers chills, neck pain neck stiffness, shortness breath, chest pain. Patient states her medications are helping. Patient offers no complaints. - Related Data Home Medications Medication Instructions Recorded Confirmed Fenofibrate Nanocrystallized 145 mg PO HS 11/06/20 02/10/21 [Fenofibrate] Rimegepant Sulfate [Nurtec Odt] 75 mg PO DAILY PRN 11/06/20 02/10/21 tiZANidine HCL 4 mg PO BID PRN 11/06/20 02/10/21 Albuterol Sulfate [Proair Hfa] 1 - 2 puff INHALATION RT-Q6H PRN 11/11/20 02/10/21 Fluticasone Nasal [place] [Flonase 2 spr EA NOSTRIL DAILY PRN 01/06/21 02/10/21 Nasal [place]] Pioglitazone HCl 15 mg PO DAILY 01/06/21 02/10/21 Meclizine HCl 25 mg PO BID PRN 01/25/21 02/10/21 Pravastatin Sodium [Pravachol] 40 mg PO DAILY 01/25/21 02/10/21 Previous Rx's Medication Instructions Recorded Pantoprazole [Protonix] 40 mg PO BID #60 tab 01/27/21 Escitalopram [Lexapro] 10 mg PO HS 30 Days tab 02/10/21 Melatonin 3 mg PO HS 30 Days tablet 02/10/21 Prazosin [Minipress] 3 mg PO HS 30 Days cap 02/10/21 Propranolol [Inderal] 10 mg PO BID 30 Days tab 02/10/21 QUEtiapine [SEROquel] 300 mg PO HS 30 Days tab 02/10/21 Topiramate [Topamax] 50 mg PO BID 30 Days tab 02/10/21 traZODone HCL [Desyrel] 100 mg PO HS 30 Days tab 02/10/21 Allergies Allergy/AdvReac Type Severity Reaction Status Date / Time bee pollen Allergy Severe Anaphylaxis Verified 02/11/21 23:12 haloperidol [From Haldol] Allergy Severe QUIT Verified 02/11/21 23:12 BREATHING haloperidol lactate Allergy Severe QUIT Verified 02/11/21 23:12 [From Haldol] BREATHING latex Allergy Severe RASH-THROAT Verified 02/11/21 23:12 CLOSES tramadol Allergy Severe Nausea & Verified 02/11/21 23:12 Vomiting murrieta Allergy Anaphylaxis Verified 02/11/21 23:12 coconut Allergy Anaphylaxis Verified 02/11/21 23:12 pineapple Allergy Anaphylaxis Verified 02/11/21 23:12 prednisone Allergy THROAT Verified 02/11/21 23:12 SWELLS spider venom Allergy Swelling Verified 02/11/21 23:12 Sulfa (Sulfonamide Allergy THROAT Verified 02/11/21 23:12 Antibiotics) SWELLS venom-wasp Allergy Swelling Verified 02/11/21 23:12 venom-wasp protein Allergy Swelling Verified 02/11/21 23:12 promethazine HCl AdvReac Severe Nausea & Verified 02/11/21 23:12 [From Phenergan] Vomiting amoxicillin AdvReac Nausea & Verified 02/11/21 23:12 Vomiting ANTS Allergy Mild Anaphylaxis Uncoded 02/11/21 23:12 Review of Systems ROS Statement: Those systems with pertinent positive or pertinent negative responses have been documented in the HPI. ROS Other: All systems not noted in ROS Statement are negative. Past Medical History Past Medical History: Asthma, Diabetes Mellitus, GERD/Reflux Additional Past Medical History / Comment(s): migraines, degenerative disk disease, endometriosis, lupus, pancreatitis, covid vaccine moderna History of Any Multi-Drug Resistant Organisms: None Reported Past Surgical History: Orthopedic Surgery Additional Past Surgical History / Comment(s): laparoscopc surgery for endometriosis, cyst removed from left foot, EGD, Past Anesthesia/Blood Transfusion Reactions: Previous Problems w/ Anesthesia Additional Past Anesthesia/Blood Transfusion Reaction / Comment(s): hard to wake up for 48-72 hours after laparoscopic surgery-was in hosp. for 3 days Past Psychological History: Anxiety, Depression, PTSD Smoking Status: Former smoker Past Alcohol Use History: None Reported Past Drug Use History: Marijuana - Past Family History Mother Family Medical History: No Reported History Additional Family Medical History / Comment(s): hx migraines Father Family Medical History: Coronary Artery Disease (CAD), Hypertension Additional Family Medical History / Comment(s): ddd, alcoholism & drug use General Exam Limitations: no limitations General appearance: alert, in no apparent distress Head exam: Present: atraumatic, normocephalic, normal inspection Eye exam: Present: normal appearance, PERRL, EOMI. Absent: scleral icterus, conjunctival injection, periorbital swelling ENT exam: Present: normal exam, normal oropharynx, mucous membranes moist Neck exam: Present: normal inspection, full ROM. Absent: tenderness, meningismus, lymphadenopathy Respiratory exam: Present: normal lung sounds bilaterally. Absent: respiratory distress, wheezes, rales, rhonchi, stridor Cardiovascular Exam: Present: regular rate, normal rhythm, normal heart sounds. Absent: systolic murmur, diastolic murmur, rubs, gallop, clicks GI/Abdominal exam: Present: soft, normal bowel sounds. Absent: distended, tenderness, guarding, rebound, rigid Neurological exam: Present: alert, oriented X3, CN II-XII intact, reflexes normal. Absent: motor sensory deficit Skin exam: Present: warm, dry, intact, normal color. Absent: rash Course Vital Signs 02/11/21 23:11 Temperature 98.7 F Pulse Rate 108 H Respiratory 22 Rate Blood Pressure 122/65 O2 Sat by Pulse 99 Oximetry Medical Decision Making - Medical Decision Making Patient has chronic migraines she is logical intact this is not an atypical headache. Patient discharged Disposition Clinical Impression: Headache Disposition: HOME SELF-CARE Condition: Stable Instructions (If sedation given, give patient instructions): Acute Headache (ED) Additional Instructions: Please return to the Emergency Department if symptoms worsen or any other concerns. Is patient prescribed a controlled substance at d/c from ED?: No Referrals: Jorje Mayes MD [Primary Care Provider] - 1-2 days Time of Disposition: 23:49
== END 2021-02-12 00:10 | disposition home or self-care (01) ==
LOC: EC 22:41
DX: R51.9 Headache, unspecified (principal); E11.9 Type 2 diabetes mellitus without complications; K21.9 Gastro-esophageal reflux disease without esophagitis; J45.909 Unspecified asthma, uncomplicated; F41.9 Anxiety disorder, unspecified; F32.9 Major depressive disorder, single episode, unspecified; F12.90 Cannabis use, unspecified, uncomplicated; Z79.84 Long term (current) use of oral hypoglycemic drugs; Z79.899 Other long term (current) drug therapy; Z87.891 Personal history of nicotine dependence; Z88.0 Allergy status to penicillin; Z88.2 Allergy status to sulfonamides; Z88.5 Allergy status to narcotic agent; Z88.8 Allergy status to other drugs, medicaments and biological substances; Z82.49 Family history of ischemic heart disease and other diseases of the circulatory system
CPT/HCPCS: 99283; 96372; J1170

== ENCOUNTER 2021-02-13 15:07 | Emergency (ER) | payer OTHER ==
[2021-02-13] MEDS ORDERED: SODIUM CHLORIDE 0.9% 1,000 ML IV STA (17:34)
[2021-02-13] MEDS ORDERED: KETOROLAC 15 MG/ML 1 ML VIAL IVP STA ×2 (17:34→18:29)
[2021-02-13] MEDS ORDERED: METOCLOPRAMIDE 5 MG/ML 2 ML VIAL IVP STA (17:34)
[2021-02-13] MEDS ORDERED: diphenhydrAMINE 50 MG/ML 1 ML VIAL IVP STA ×2 (17:34→18:29)
--- NOTE | 2021-02-13 17:34 | ED ---
General Adult HPI - General Source: patient, RN notes reviewed Mode of arrival: ambulatory Limitations: no limitations <Yolanda Trinidad - Last Filed: 02/13/21 22:19> <Lindsey Funk - Last Filed: 02/16/21 00:49> - General Chief complaint: Headache Stated complaint: Headache Time Seen by Provider: 02/13/21 16:37 - History of Present Illness Initial comments: 30-year-old female presents to the emergency Department with complaints of migraine headache 1 week. Patient states her headache is accompanied by nausea and photosensitivity. Reports one episode of vomiting today and decreased oral intake. States this is her typical migraine presentation. When asked about outpatient treatment and home medication regimen, patient states she is to see her neurologist for an infusion, but has been unable to do so. Patient denies fever, chills, chest pain, shortness of breath, abdominal pain, dysuria, and hematuria. (Yolanda Trinidad) - Related Data Home Medications Medication Instructions Recorded Confirmed Fenofibrate Nanocrystallized 145 mg PO HS 11/06/20 02/10/21 [Fenofibrate] Rimegepant Sulfate [Nurtec Odt] 75 mg PO DAILY PRN 11/06/20 02/10/21 tiZANidine HCL 4 mg PO BID PRN 11/06/20 02/10/21 Albuterol Sulfate [Proair Hfa] 1 - 2 puff INHALATION RT-Q6H PRN 11/11/20 02/10/21 Fluticasone Nasal [place] [Flonase 2 spr EA NOSTRIL DAILY PRN 01/06/21 02/10/21 Nasal [place]] Pioglitazone HCl 15 mg PO DAILY 01/06/21 02/10/21 Meclizine HCl 25 mg PO BID PRN 01/25/21 02/10/21 Pravastatin Sodium [Pravachol] 40 mg PO DAILY 01/25/21 02/10/21 Previous Rx's Medication Instructions Recorded Pantoprazole [Protonix] 40 mg PO BID #60 tab 01/27/21 Escitalopram [Lexapro] 10 mg PO HS 30 Days tab 02/10/21 Melatonin 3 mg PO HS 30 Days tablet 02/10/21 Prazosin [Minipress] 3 mg PO HS 30 Days cap 02/10/21 Propranolol [Inderal] 10 mg PO BID 30 Days tab 02/10/21 QUEtiapine [SEROquel] 300 mg PO HS 30 Days tab 02/10/21 Topiramate [Topamax] 50 mg PO BID 30 Days tab 02/10/21 traZODone HCL [Desyrel] 100 mg PO HS 30 Days tab 02/10/21 Allergies Allergy/AdvReac Type Severity Reaction Status Date / Time bee pollen Allergy Severe Anaphylaxis Verified 02/15/21 15:46 haloperidol [From Haldol] Allergy Severe QUIT Verified 02/15/21 15:46 BREATHING haloperidol lactate Allergy Severe QUIT Verified 02/15/21 15:46 [From Haldol] BREATHING latex Allergy Severe RASH-THROAT Verified 02/15/21 15:46 CLOSES tramadol Allergy Severe Nausea & Verified 02/15/21 15:46 Vomiting murri[place] Allergy Anaphylaxis Verified 02/15/21 15:46 coconut Allergy Anaphylaxis Verified 02/15/21 15:46 pineapple Allergy Anaphylaxis Verified 02/15/21 15:46 prednisone Allergy THROAT Verified 02/15/21 15:46 SWELLS spider venom Allergy Swelling Verified 02/15/21 15:46 Sulfa (Sulfonamide Allergy THROAT Verified 02/15/21 15:46 Antibiotics) SWELLS venom-wasp Allergy Swelling Verified 02/15/21 15:46 venom-wasp protein Allergy Swelling Verified 02/15/21 15:46 promethazine HCl AdvReac Severe Nausea & Verified 02/15/21 15:46 [From Phenergan] Vomiting amoxicillin AdvReac Nausea & Verified 02/15/21 15:46 Vomiting ANTS Allergy Mild Anaphylaxis Uncoded 02/15/21 15:46 Review of Systems ROS Other: All systems not noted in ROS Statement are negative. <Yolanda Trinidad - Last Filed: 02/13/21 22:19> ROS Other: All systems not noted in ROS Statement are negative. <Lindsey Funk - Last Filed: 02/16/21 00:49> ROS Statement: Those systems with pertinent positive or pertinent negative responses have been documented in the HPI. Past Medical History Past Medical History: Asthma, Diabetes Mellitus, GERD/Reflux Additional Past Medical History / Comment(s): migraines, degenerative disk disease, endometriosis, lupus, pancreatitis History of Any Multi-Drug Resistant Organisms: None Reported Past Surgical History: Orthopedic Surgery Additional Past Surgical History / Comment(s): laparoscopc surgery for endometriosis, cyst removed from left foot, EGD, Past Anesthesia/Blood Transfusion Reactions: Previous Problems w/ Anesthesia Additional Past Anesthesia/Blood Transfusion Reaction / Comment(s): hard to wake up for 48-72 hours after laparoscopic surgery-was in hosp. for 3 days Past Psychological History: Anxiety, Depression, PTSD Smoking Status: Former smoker Past Alcohol Use History: None Reported Past Drug Use History: Marijuana - Past Family History Mother Family Medical History: No Reported History Additional Family Medical History / Comment(s): hx migraines Father Family Medical History: Coronary Artery Disease (CAD), Hypertension Additional Family Medical History / Comment(s): ddd, alcoholism & drug use <Yolanda Trinidad - Last Filed: 02/13/21 22:19> General Exam Limitations: no limitations (Well-developed, well-nourished female in no acute distress. Initial temperature 98.5, pulse 92, respirations 18, blood pressure 117/86, pulse ox 97% on room air.) General appearance: alert, in no apparent distress Head exam: Present: atraumatic, normocephalic, normal inspection Eye exam: Present: normal appearance, PERRL, EOMI. Absent: scleral icterus, conjunctival injection, periorbital swelling ENT exam: Present: normal exam, normal oropharynx Neck exam: Present: normal inspection, full ROM. Absent: tenderness, meningismus, lymphadenopathy Respiratory exam: Present: normal lung sounds bilaterally. Absent: respiratory distress, wheezes, rales, rhonchi, stridor Cardiovascular Exam: Present: regular rate, normal rhythm, normal heart sounds. Absent: systolic murmur, diastolic murmur, rubs, gallop, clicks GI/Abdominal exam: Present: soft, normal bowel sounds. Absent: distended, tenderness, guarding, rebound, rigid Neurological exam: Present: alert, oriented X3, CN II-XII intact Expanded Speech: Present: fluid speech Cranial nerves: EOM's Intact: Normal Eye Response: (4) open spontaneously Motor Response: (6) obeys commands Verbal Response: (5) oriented Psychiatric exam: Present: normal mood, flat affect Skin exam: Present: warm, dry, intact <Yolanda Trinidad - Last Filed: 02/13/21 22:19> Course Vital Signs 11/07/3102/13/21 02/13/21 15:13 17:55 20:18 Temperature 98.5 F 98.1 F Pulse Rate 92 75 85 Respiratory 18 18 20 Rate Blood Pressure 117/86 98/65 107/73 O2 Sat by Pulse 97 100 97 Oximetry Medical Decision Making <AmosMiriana - Last Filed: 02/13/21 22:19> <Lindsey Funk - Last Filed: 02/16/21 00:49> - Medical Decision Making This is a 30-year-old female with a history of chronic migraines and frequent visits to the emergency department for evaluation of migraine headache 1 week. Physical exam findings are unremarkable and consistent with patient's typical migraine headache presentation. Patient was given a liter of IV fluids and migraine cocktail. Patient does request morphine or Dilaudid stating this is necessary to alleviate her pain. I explained that this was not the best practice for treatment of migraine headaches. Patient will be discharged home and encouraged to see her neurologist for follow-up care. Return parameters were discussed in detail. Patient verbalizes understanding.This patient's care was discussed with my attending Dr. Funk. (Yolanda Trinidad) I was available for consultation in the emergency department. The history and physical exam were done by the midlevel provider. I was consulted for this patients care. I reviewed the case with the midlevel provider and based on their presentation of the patient, I agree with the assessment, medical decision making and plan of care as documented. Chart was dictated using [employer] dictation software. Attempts were made to correct any dictation errors however some typographical errors may persist. (Lindsey Funk) Disposition Is patient prescribed a controlled substance at d/c from ED?: No Time of Disposition: 19:44 <Yolanda Trinidad - Last Filed: 02/13/21 22:19> <Lindsey Funk - Last Filed: 02/16/21 00:49> Clinical Impression: Chronic migraine Disposition: HOME SELF-CARE Condition: Stable Instructions (If sedation given, give patient instructions): Migraine Headache (ED) Additional Instructions: Make an appointment with neurology for follow-up. Return to the emergency department with any new, worsening, or concerning symptoms. Referrals: Jorje Mayes MD [Primary Care Provider] - 1-2 days
[2021-02-13 20:27] VITALS: BP 107/73; PULSE 85; RESP 20; TEMP 98.1
== END 2021-02-13 20:18 | disposition home or self-care (01) ==
LOC: EC 15:07
DX: G43.909 Migraine, unspecified, not intractable, without status migrainosus (principal); E11.9 Type 2 diabetes mellitus without complications; J45.909 Unspecified asthma, uncomplicated; K21.9 Gastro-esophageal reflux disease without esophagitis; F32.9 Major depressive disorder, single episode, unspecified; F41.9 Anxiety disorder, unspecified; F12.90 Cannabis use, unspecified, uncomplicated; Z79.51 Long term (current) use of inhaled steroids; Z79.899 Other long term (current) drug therapy; Z79.84 Long term (current) use of oral hypoglycemic drugs; Z87.891 Personal history of nicotine dependence; Z88.0 Allergy status to penicillin; Z88.2 Allergy status to sulfonamides; Z88.5 Allergy status to narcotic agent; Z88.8 Allergy status to other drugs, medicaments and biological substances; Z82.49 Family history of ischemic heart disease and other diseases of the circulatory system
CPT/HCPCS: 96374; 96375 ×2; 96361 ×2; 99284; J1200; J2765; J1885

== ENCOUNTER 2021-02-15 15:39 | Emergency (ER) | payer OTHER ==
[2021-02-15 15:46] VITALS: TEMP 97.7
[2021-02-15] MEDS ORDERED: diphenhydrAMINE 50 MG/ML 1 ML VIAL IVP STA (15:49)
[2021-02-15] MEDS ORDERED: ONDANSETRON 4 MG/2 ML VIAL IVP STA (15:49)
[2021-02-15] MEDS ORDERED: HYDROmorphone 1 MG/ML 1 ML SYRINGE IVP STA (15:49)
--- NOTE | 2021-02-15 17:28 | ED ---
General Adult HPI - General Chief complaint: Headache Stated complaint: migraine; back pain Time Seen by Provider: 02/15/21 15:49 Source: patient, RN notes reviewed Mode of arrival: ambulatory Limitations: no limitations - History of Present Illness Initial comments: Patient is a 30-year-old female that presents to emergency department complaining of headache and back pain. She notes she went to her neurologist but they're unable to establish a IV for medication for her chronic migraines. She states that her back pain is more concerned her headache. She notes at home medications are not working. She denied any other issues or complaints. She was otherwise well-appearing. She denied chest pain shortness of breath nausea vomiting diarrhea constipation fever fatigue chills. - Related Data Home Medications Medication Instructions Recorded Confirmed Fenofibrate Nanocrystallized 145 mg PO HS 11/06/20 02/10/21 [Fenofibrate] Rimegepant Sulfate [Nurtec Odt] 75 mg PO DAILY PRN 11/06/20 02/10/21 tiZANidine HCL 4 mg PO BID PRN 11/06/20 02/10/21 Albuterol Sulfate [Proair Hfa] 1 - 2 puff INHALATION RT-Q6H PRN 11/11/20 02/10/21 Fluticasone Nasal [place] [Flonase 2 spr EA NOSTRIL DAILY PRN 01/06/21 02/10/21 Nasal [place]] Pioglitazone HCl 15 mg PO DAILY 01/06/21 02/10/21 Meclizine HCl 25 mg PO BID PRN 01/25/21 02/10/21 Pravastatin Sodium [Pravachol] 40 mg PO DAILY 01/25/21 02/10/21 Previous Rx's Medication Instructions Recorded Pantoprazole [Protonix] 40 mg PO BID #60 tab 01/27/21 Escitalopram [Lexapro] 10 mg PO HS 30 Days tab 02/10/21 Melatonin 3 mg PO HS 30 Days tablet 02/10/21 Prazosin [Minipress] 3 mg PO HS 30 Days cap 02/10/21 Propranolol [Inderal] 10 mg PO BID 30 Days tab 02/10/21 QUEtiapine [SEROquel] 300 mg PO HS 30 Days tab 02/10/21 Topiramate [Topamax] 50 mg PO BID 30 Days tab 02/10/21 traZODone HCL [Desyrel] 100 mg PO HS 30 Days tab 02/10/21 Allergies Allergy/AdvReac Type Severity Reaction Status Date / Time bee pollen Allergy Severe Anaphylaxis Verified 02/15/21 15:46 haloperidol [From Haldol] Allergy Severe QUIT Verified 02/15/21 15:46 BREATHING haloperidol lactate Allergy Severe QUIT Verified 02/15/21 15:46 [From Haldol] BREATHING latex Allergy Severe RASH-THROAT Verified 02/15/21 15:46 CLOSES tramadol Allergy Severe Nausea & Verified 02/15/21 15:46 Vomiting [place]ri[place] Allergy Anaphylaxis Verified 02/15/21 15:46 coconut Allergy Anaphylaxis Verified 02/15/21 15:46 pineapple Allergy Anaphylaxis Verified 02/15/21 15:46 prednisone Allergy THROAT Verified 02/15/21 15:46 SWELLS spider venom Allergy Swelling Verified 02/15/21 15:46 Sulfa (Sulfonamide Allergy THROAT Verified 02/15/21 15:46 Antibiotics) SWELLS venom-wasp Allergy Swelling Verified 02/15/21 15:46 venom-wasp protein Allergy Swelling Verified 02/15/21 15:46 promethazine HCl AdvReac Severe Nausea & Verified 02/15/21 15:46 [From Phenergan] Vomiting amoxicillin AdvReac Nausea & Verified 02/15/21 15:46 Vomiting ANTS Allergy Mild Anaphylaxis Uncoded 02/15/21 15:46 Review of Systems ROS Statement: Those systems with pertinent positive or pertinent negative responses have been documented in the HPI. ROS Other: All systems not noted in ROS Statement are negative. Past Medical History Past Medical History: Asthma, Diabetes Mellitus, GERD/Reflux Additional Past Medical History / Comment(s): migraines, degenerative disk disease, endometriosis, lupus, pancreatitis History of Any Multi-Drug Resistant Organisms: None Reported Past Surgical History: Orthopedic Surgery Additional Past Surgical History / Comment(s): laparoscopc surgery for endometriosis, cyst removed from left foot, EGD, Past Anesthesia/Blood Transfusion Reactions: Previous Problems w/ Anesthesia Additional Past Anesthesia/Blood Transfusion Reaction / Comment(s): hard to wake up for 48-72 hours after laparoscopic surgery-was in hosp. for 3 days Past Psychological History: Anxiety, Depression, PTSD Smoking Status: Former smoker Past Alcohol Use History: None Reported Past Drug Use History: Marijuana - Past Family History Mother Family Medical History: No Reported History Additional Family Medical History / Comment(s): hx migraines Father Family Medical History: Coronary Artery Disease (CAD), Hypertension Additional Family Medical History / Comment(s): ddd, alcoholism & drug use General Exam Limitations: no limitations General appearance: alert, in no apparent distress Head exam: Present: atraumatic, normocephalic, normal inspection Eye exam: Present: normal appearance, PERRL, EOMI. Absent: scleral icterus, conjunctival injection, periorbital swelling ENT exam: Present: normal exam, mucous membranes moist Neck exam: Present: normal inspection Respiratory exam: Present: normal lung sounds bilaterally. Absent: respiratory distress, wheezes, rales, rhonchi, stridor Cardiovascular Exam: Present: regular rate, normal rhythm, normal heart sounds. Absent: systolic murmur, diastolic murmur, rubs, gallop, clicks Extremities exam: Present: normal inspection, full ROM, normal capillary refill. Absent: tenderness, pedal edema, joint swelling, calf tenderness Back exam: Present: normal inspection Neurological exam: Present: alert, oriented X3 Psychiatric exam: Present: normal affect, normal mood Skin exam: Present: warm, dry, intact, normal color. Absent: rash Course Vital Signs 02/15/21 15:43 Temperature 97.7 F Pulse Rate 105 H Respiratory 20 Rate Blood Pressure 100/69 O2 Sat by Pulse 99 Oximetry Medical Decision Making - Medical Decision Making 30-year-old female with chronic headache and low back pain. 1 mg of Dilaudid, 4 mg of Zofran, 50 g Benadryl, 1 L normal saline ordered. Upon reevaluation patient is feeling better and cough for discharge home with follow-up to primary care. His discussed with Dr. Avalos, patient discharge home. Disposition Clinical Impression: Back pain, Chronic migraine Disposition: HOME SELF-CARE Condition: Stable Instructions (If sedation given, give patient instructions): Acute Headache (ED) Additional Instructions: Please return to the Emergency Department if symptoms worsen or any other concerns. Is patient prescribed a controlled substance at d/c from ED?: No Referrals: Jorje Mayes MD [Primary Care Provider] - 1-2 days Time of Disposition: 17:39
[2021-02-15] MEDS ORDERED: HYDROmorphone 1 MG/ML 1 ML SYRINGE IM STA (17:39)
[2021-02-15 17:57] VITALS: BP 110/71; PULSE 76; RESP 18
== END 2021-02-15 18:07 | disposition home or self-care (01) ==
LOC: EC 15:39
DX: G43.909 Migraine, unspecified, not intractable, without status migrainosus (principal); M54.9 Dorsalgia, unspecified; E11.9 Type 2 diabetes mellitus without complications; J45.909 Unspecified asthma, uncomplicated; Z91.09 Other allergy status, other than to drugs and biological substances; Z91.030 Bee allergy status; Z88.0 Allergy status to penicillin; Z87.891 Personal history of nicotine dependence; Z88.8 Allergy status to other drugs, medicaments and biological substances; Z88.2 Allergy status to sulfonamides; Z91.038 Other insect allergy status; Z91.040 Latex allergy status; Z88.6 Allergy status to analgesic agent; Z91.018 Allergy to other foods; Z79.84 Long term (current) use of oral hypoglycemic drugs
CPT/HCPCS: 99283 ×2; 96374 ×2; 96375 ×2; 96372 ×2; J1200; J2405; J1170

== ENCOUNTER 2021-02-16 19:19 | Emergency (ER) | payer OTHER ==
[2021-02-16 19:59] VITALS: TEMP 97.9
--- NOTE | 2021-02-16 20:55 | ED ---
General Adult HPI - General Chief complaint: Abdominal Pain Stated complaint: Abd Pain Time Seen by Provider: 02/16/21 20:47 Source: patient Mode of arrival: wheelchair Limitations: no limitations - History of Present Illness Initial comments: Patient presents to the ED complaining of having epigastric abdominal pain radiating to her back since last night and nausea and vomiting since this morning. Patient is well-known to the ED staff, and she has had multiple prior ED visits. Patient sates that she has had similar pain and symptoms in the past. Patient denies trauma or injury, fever or chills, headache, chest pain, dyspnea, cough or cold symptoms, dizziness, lower abdominal pain, diarrhea or constipation, bloody or melanotic stool, hematemesis, dysuria/hematuria/urinary frequency/urinary symptoms, vaginal bleeding or discharge, or any other symptoms or complaints. Patient's states that her LMP was 01/24/21. Patient states that she has a history of pancreatitis. - Related Data Home Medications Medication Instructions Recorded Confirmed Fenofibrate Nanocrystallized 145 mg PO HS 11/06/20 02/10/21 [Fenofibrate] Rimegepant Sulfate [Nurtec Odt] 75 mg PO DAILY PRN 11/06/20 02/10/21 tiZANidine HCL 4 mg PO BID PRN 11/06/20 02/10/21 Albuterol Sulfate [Proair Hfa] 1 - 2 puff INHALATION RT-Q6H PRN 11/11/20 02/10/21 Fluticasone Nasal [place] [Flonase 2 spr EA NOSTRIL DAILY PRN 01/06/21 02/10/21 Nasal [place]] Pioglitazone HCl 15 mg PO DAILY 01/06/21 02/10/21 Meclizine HCl 25 mg PO BID PRN 01/25/21 02/10/21 Pravastatin Sodium [Pravachol] 40 mg PO DAILY 01/25/21 02/10/21 Previous Rx's Medication Instructions Recorded Pantoprazole [Protonix] 40 mg PO BID #60 tab 01/27/21 Escitalopram [Lexapro] 10 mg PO HS 30 Days tab 02/10/21 Melatonin 3 mg PO HS 30 Days tablet 02/10/21 Prazosin [Minipress] 3 mg PO HS 30 Days cap 02/10/21 Propranolol [Inderal] 10 mg PO BID 30 Days tab 02/10/21 QUEtiapine [SEROquel] 300 mg PO HS 30 Days tab 02/10/21 Topiramate [Topamax] 50 mg PO BID 30 Days tab 02/10/21 traZODone HCL [Desyrel] 100 mg PO HS 30 Days tab 02/10/21 Allergies Allergy/AdvReac Type Severity Reaction Status Date / Time bee pollen Allergy Severe Anaphylaxis Verified 02/16/21 19:59 haloperidol [From Haldol] Allergy Severe QUIT Verified 02/16/21 19:59 BREATHING haloperidol lactate Allergy Severe QUIT Verified 02/16/21 19:59 [From Haldol] BREATHING latex Allergy Severe RASH-THROAT Verified 02/16/21 19:59 CLOSES tramadol Allergy Severe Nausea & Verified 02/16/21 19:59 Vomiting [place] Allergy Anaphylaxis Verified 02/16/21 19:59 coconut Allergy Anaphylaxis Verified 02/16/21 19:59 pineapple Allergy Anaphylaxis Verified 02/16/21 19:59 prednisone Allergy THROAT Verified 02/16/21 19:59 SWELLS spider venom Allergy Swelling Verified 02/16/21 19:59 Sulfa (Sulfonamide Allergy THROAT Verified 02/16/21 19:59 Antibiotics) SWELLS venom-wasp Allergy Swelling Verified 02/16/21 19:59 venom-wasp protein Allergy Swelling Verified 02/16/21 19:59 promethazine HCl AdvReac Severe Nausea & Verified 02/16/21 19:59 [From Phenergan] Vomiting amoxicillin AdvReac Nausea & Verified 02/16/21 19:59 Vomiting ANTS Allergy Mild Anaphylaxis Uncoded 02/16/21 19:59 Review of Systems ROS Statement: Those systems with pertinent positive or pertinent negative responses have been documented in the HPI. ROS Other: All systems not noted in ROS Statement are negative. Past Medical History Past Medical History: Asthma, Diabetes Mellitus, GERD/Reflux Additional Past Medical History / Comment(s): migraines, degenerative disk disease, endometriosis, lupus, pancreatitis History of Any Multi-Drug Resistant Organisms: None Reported Past Surgical History: Orthopedic Surgery Additional Past Surgical History / Comment(s): laparoscopc surgery for endometriosis, cyst removed from left foot, EGD, Past Anesthesia/Blood Transfusion Reactions: Previous Problems w/ Anesthesia Additional Past Anesthesia/Blood Transfusion Reaction / Comment(s): hard to wake up for 48-72 hours after laparoscopic surgery-was in hosp. for 3 days Past Psychological History: Anxiety, Depression, PTSD Smoking Status: Former smoker Past Alcohol Use History: None Reported Past Drug Use History: Marijuana - Past Family History Mother Family Medical History: No Reported History Additional Family Medical History / Comment(s): hx migraines Father Family Medical History: Coronary Artery Disease (CAD), Hypertension Additional Family Medical History / Comment(s): ddd, alcoholism & drug use General Exam Limitations: no limitations General appearance: alert, in no apparent distress Head exam: Present: atraumatic, normocephalic Eye exam: Present: normal appearance, EOMI ENT exam: Present: mucous membranes moist Neck exam: Present: other (Trachea is in midline) Respiratory exam: Present: normal lung sounds bilaterally. Absent: respiratory distress, wheezes, rales, rhonchi, stridor Cardiovascular Exam: Present: regular rate, normal rhythm, normal heart sounds, other (Normal radial pulses bilaterally) GI/Abdominal exam: Present: soft, normal bowel sounds, other (Moderate epigastric abdominal tenderness). Absent: distended, guarding, rebound Extremities exam: Absent: pedal edema Back exam: Absent: tenderness, CVA tenderness (R), CVA tenderness (L) Neurological exam: Present: alert, oriented X3. Absent: motor sensory deficit Psychiatric exam: Present: normal affect, normal mood Skin exam: Present: warm, dry, intact, normal color Course Vital Signs 02/16/21 19:56 Temperature 97.9 F Pulse Rate 113 H Respiratory 22 Rate Blood Pressure 75/51 O2 Sat by Pulse 97 Oximetry - Reevaluation(s) Reevaluation #1: 02/16/21 22:46 Patient denies development of any new symptoms while in the ED. Patient has not had any vomiting while in the ED. Patient's abdomen remains soft and without an y surgical signs on examination. Patient is aware of her test results, and she feels comfortable being discharged home at this time. Patient was counseled about abdominal pain and nausea/vomiting, and she was clearly explained return and follow-up instructions. Patient was instructed to follow up closely with her primary care provider. Patient states that she has Zofran at home for her nausea. Medical Decision Making - Medical Decision Making Patient's labs are fairly unremarkable. Patient is afebrile and without leukocytosis. Patient has a nonsurgical abdominal exam. I do not suspect a surgical or emergent medical condition at this time. Will discharge patient home at this time. - Lab Data Result diagrams: 02/16/21 21:41 02/16/21 21:41 Lab Results 02/16/21 02/16/21 02/16/21 Range/Units 21:41 21:41 22:15 WBC 9.7 (3.8-10.6) k/uL RBC 4.60 (3.80-5.40) m/uL Hgb 14.3 (11.4-16.0) gm/dL Hct 40.9 (34.0-46.0) % MCV 89.0 D (80.0-100.0) fL MCH 31.0 (25.0-35.0) pg MCHC 34.9 (31.0-37.0) g/dL RDW 13.6 (11.5-15.5) % Plt Count 212 (150-450) k/uL MPV 8.0 Neutrophils % 54 % Lymphocytes % 39 % Monocytes % 5 % Eosinophils % 1 % Basophils % 1 % Neutrophils # 5.2 (1.3-7.7) k/uL Lymphocytes # 3.7 (1.0-4.8) k/uL Monocytes # 0.5 (0-1.0) k/uL Eosinophils # 0.1 (0-0.7) k/uL Basophils # 0.1 (0-0.2) k/uL Sodium 136 L (137-145) mmol/L Potassium 4.3 (3.5-5.1) mmol/L Chloride 110 H (98-107) mmol/L Carbon Dioxide 19 L (22-30) mmol/L Anion Gap 7 mmol/L BUN 17 (7-17) mg/dL Creatinine 0.95 (0.52-1.04) mg/dL Est GFR (CKD-EPI)AfAm >90 (>60 ml/min/1.73 sqM) Est GFR (CKD-EPI)NonAf 82 (>60 ml/min/1.73 sqM) Glucose 129 H (74-99) mg/dL Calcium 10.2 (8.4-10.2) mg/dL Total Bilirubin 0.4 (0.2-1.3) mg/dL AST 19 (14-36) U/L ALT 16 (4-34) U/L Alkaline Phosphatase 58 (38-126) U/L Total Protein 7.2 (6.3-8.2) g/dL Albumin 4.0 (3.5-5.0) g/dL Lipase 140 (23-300) U/L HCG, Qual Not Detected Urine Color Yellow Urine Appearance Clear (Clear) Urine pH 5.5 (5.0-8.0) Ur Specific [place] 1.014 (1.001-1.035) Urine Protein Negative (Negative) Urine Glucose (UA) 1+ H (Negative) Urine Ketones Negative (Negative) Urine Blood Negative (Negative) Urine Nitrite Negative (Negative) Urine Bilirubin Negative (Negative) Urine Urobilinogen <2.0 (<2.0) mg/dL Ur Leukocyte Esterase Small H (Negative) Urine RBC 1 (0-5) /hpf Urine WBC 13 H (0-5) /hpf Ur Squamous Epith Cells <1 (0-4) /hpf Amorphous Sediment Rare H (None) /hpf Urine Bacteria Few H (None) /hpf Hyaline Casts 1 (0-2) /lpf Urine Mucus Occasional H (None) /hpf Disposition Clinical Impression: Abdominal pain, Nausea and vomiting Disposition: HOME SELF-CARE Condition: Stable Instructions (If sedation given, give patient instructions): Acute Nausea and Vomiting (ED), Abdominal Pain (ED) Additional Instructions: Return to the ER immediately should you develop new or worsening pain, persistent or bloody vomiting, a fever, feeling dizzy or faint, shortness of breath, or new or worsening symptoms. Follow up closely with your primary care provider. Is patient prescribed a controlled substance at d/c from ED?: No Referrals: Jorje Mayes MD [Primary Care Provider] - 1-2 days Time of Disposition: 22:47
[2021-02-16] MEDS ORDERED: MAG HYDROX/AL HYDROX/SIMETH 30 ML, HYOSCYAMINE ELIXIR 10 ML, LIDOCAINE VISCOUS 2% 10 ML PO STA ×3 (21:03)
[2021-02-16] MEDS ORDERED: ONDANSETRON ODT 4 MG TAB PO STA (21:03)
[2021-02-16 21:49] LABS: Basophils # (A) 0.1 k/uL (0-0.2); Basophils % (A) 1 %; Eosinophils # (A) 0.1 k/uL (0-0.7); Eosinophils % (A) 1 %; HCT 40.9 % (34.0-46.0); HGB 14.3 gm/dL (11.4-16.0); Lymphocytes # (A) 3.7 k/uL (1.0-4.8); Lymphocytes % (A) 39 %; MCHC 34.9 g/dL (31.0-37.0); Monocytes # (A) 0.5 k/uL (0-1.0); Monocytes % (A) 5 %; Neutrophils # (A) 5.2 k/uL (1.3-7.7); Neutrophils % (A) 54 %; Platelet Count 212 k/uL (150-450); RDW 13.6 % (11.5-15.5); WBC 9.7 k/uL (3.8-10.6)
[2021-02-16 21:58] LABS: HCG,Qualitative Serum Not Detected
[2021-02-16 21:59] LABS: ALT 16 U/L (4-34); AST 19 U/L (14-36); African American GFR (CKD) >90 (>60 ml/min/1.73 sqM); Alkaline Phosphatase 58 U/L (38-126); Anion Gap 7 mmol/L; Blood Urea Nitrogen 17 mg/dL (7-17); Calcium 10.2 mg/dL (8.4-10.2); Carbon Dioxide 19 mmol/L (22-30); Chloride 110 mmol/L (98-107); Glucose 129 mg/dL (74-99); Lipase 140 U/L (23-300); Non-African American GFR(CKD) 82 (>60 ml/min/1.73 sqM); Potassium 4.3 mmol/L (3.5-5.1); Sodium 136 mmol/L (137-145); Total Bilirubin 0.4 mg/dL (0.2-1.3); Total Protein 7.2 g/dL (6.3-8.2)
[2021-02-16 22:27] LABS: Amorphous Sediment,Urine Rare /hpf; Appearance,Urine Clear (Clear); Bacteria,Urine Few /hpf; Bilirubin,Urine Negative (Negative); Blood,Urine Negative (Negative); Color,Urine Yellow; Glucose,Urine (UA) 1+ (Negative); Hyaline Casts,Urine 1 /lpf (0-2); Ketones,Urine Negative (Negative); Leukocyte Esterase,Urine Small (Negative); Mucus,Urine Occasional /hpf; Nitrite,Urine Negative (Negative); PH, Urine 5.5 (5.0-8.0); Protein,Urine Negative (Negative); RBC,Urine 1 /hpf (0-5); Specific Gravity,Urine 1.014 (1.001-1.035); Squamous Epithelial Cell,Urine <1 /hpf (0-4); Urobilinogen,Urine <2.0 mg/dL (<2.0); WBC,Urine 13 /hpf (0-5)
[2021-02-16] MEDS ORDERED: KETOROLAC 15 MG/ML 1 ML VIAL IM STA (22:28)
[2021-02-16 23:15] VITALS: BP 104/60; PULSE 106; RESP 16
== END 2021-02-16 22:51 | disposition home or self-care (01) ==
LOC: EC 19:19
DX: R10.13 Epigastric pain (principal); R11.2 Nausea with vomiting, unspecified; E11.9 Type 2 diabetes mellitus without complications; J45.909 Unspecified asthma, uncomplicated; Z79.84 Long term (current) use of oral hypoglycemic drugs; Z87.19 Personal history of other diseases of the digestive system; Z87.891 Personal history of nicotine dependence; Z88.0 Allergy status to penicillin; Z88.2 Allergy status to sulfonamides; Z88.5 Allergy status to narcotic agent; Z88.8 Allergy status to other drugs, medicaments and biological substances; Z91.040 Latex allergy status; Z91.038 Other insect allergy status; Z91.018 Allergy to other foods
CPT/HCPCS: 36415; 80053; 83690; 85025; 81001; 84703; 87086; 99284; 96372; J1885

== ENCOUNTER 2021-02-18 19:15 | Emergency (ER) | payer OTHER ==
[2021-02-18 22:05] LABS: Basophils % (A) 0 %; Eosinophils # (A) 0.2 k/uL (0-0.7); Eosinophils % (A) 2 %; HCT 40.5 % (34.0-46.0); HGB 13.8 gm/dL (11.4-16.0); Lymphocytes # (A) 2.7 k/uL (1.0-4.8); Lymphocytes % (A) 34 %; MCH 30.9 pg (25.0-35.0); Mean Platelet Volume 9.3; Monocytes # (A) 0.3 k/uL (0-1.0); Monocytes % (A) 4 %; Neutrophils # (A) 4.7 k/uL (1.3-7.7); Neutrophils % (A) 59 %; Platelet Count 155 k/uL (150-450); RBC 4.45 m/uL (3.80-5.40); RDW 12.9 % (11.5-15.5)
[2021-02-18] MEDS ORDERED: KETOROLAC 15 MG/ML 1 ML VIAL IM STA (22:05)
[2021-02-18] MEDS ORDERED: ORPHENADRINE 30 MG/ML 2 ML VIAL IM STA (22:06)
--- NOTE | 2021-02-18 22:08 | ED ---
General Adult HPI - General Chief complaint: GI Bleed Stated complaint: LFT side pain, Bleeding when having BM Time Seen by Provider: 02/18/21 21:38 Source: patient, RN notes reviewed Mode of arrival: ambulatory Limitations: no limitations - History of Present Illness Initial comments: 30-year-old female with a past medical history of GERD, diabetes, asthma presents to the emergency room for a chief complaint of left side pain. Patient states the whole left side of her body hurts. States it starts in the left shoulder radiates down to the left hand. Patient also has left leg pain. States it starts in the left hip and radiates down to the foot. States it is painful to walk on. Patient states she has also had some blood in her stool. States it is bright red and streaking the stool. This just started past couple days. Denies nausea or vomiting. Denies diarrhea.Patient has no other complaints at this time including shortness of breath, chest pain, abdominal pain, nausea or vomiting, headache, or visual changes. - Related Data Home Medications Medication Instructions Recorded Confirmed Fenofibrate Nanocrystallized 145 mg PO HS 11/06/20 02/10/21 [Fenofibrate] Rimegepant Sulfate [Nurtec Odt] 75 mg PO DAILY PRN 11/06/20 02/10/21 tiZANidine HCL 4 mg PO BID PRN 11/06/20 02/10/21 Albuterol Sulfate [Proair Hfa] 1 - 2 puff INHALATION RT-Q6H PRN 11/11/20 02/10/21 Fluticasone Nasal [place] [Flonase 2 spr EA NOSTRIL DAILY PRN 01/06/21 02/10/21 Nasal [place]] Pioglitazone HCl 15 mg PO DAILY 01/06/21 02/10/21 Meclizine HCl 25 mg PO BID PRN 01/25/21 02/10/21 Pravastatin Sodium [Pravachol] 40 mg PO DAILY 01/25/21 02/10/21 Previous Rx's Medication Instructions Recorded Pantoprazole [Protonix] 40 mg PO BID #60 tab 01/27/21 Escitalopram [Lexapro] 10 mg PO HS 30 Days tab 02/10/21 Melatonin 3 mg PO HS 30 Days tablet 02/10/21 Prazosin [Minipress] 3 mg PO HS 30 Days cap 02/10/21 Propranolol [Inderal] 10 mg PO BID 30 Days tab 02/10/21 QUEtiapine [SEROquel] 300 mg PO HS 30 Days tab 02/10/21 Topiramate [Topamax] 50 mg PO BID 30 Days tab 02/10/21 traZODone HCL [Desyrel] 100 mg PO HS 30 Days tab 02/10/21 Allergies Allergy/AdvReac Type Severity Reaction Status Date / Time bee pollen Allergy Severe Anaphylaxis Verified 02/16/21 19:59 haloperidol [From Haldol] Allergy Severe QUIT Verified 02/16/21 19:59 BREATHING haloperidol lactate Allergy Severe QUIT Verified 02/16/21 19:59 [From Haldol] BREATHING latex Allergy Severe RASH-THROAT Verified 02/16/21 19:59 CLOSES tramadol Allergy Severe Nausea & Verified 02/18/21 19:34 Vomiting [place] Allergy Anaphylaxis Verified 02/18/21 19:34 coconut Allergy Anaphylaxis Verified 02/18/21 19:34 pineapple Allergy Anaphylaxis Verified 02/18/21 19:34 prednisone Allergy THROAT Verified 02/18/21 19:34 SWELLS spider venom Allergy Swelling Verified 02/18/21 19:34 Sulfa (Sulfonamide Allergy THROAT Verified 02/18/21 19:34 Antibiotics) SWELLS venom-wasp Allergy Swelling Verified 02/18/21 19:34 venom-wasp protein Allergy Swelling Verified 02/18/21 19:34 promethazine HCl AdvReac Severe Nausea & Verified 02/18/21 19:34 [From Phenergan] Vomiting amoxicillin AdvReac Nausea & Verified 02/18/21 19:34 Vomiting ANTS Allergy Mild Anaphylaxis Uncoded 02/18/21 19:34 Review of Systems ROS Statement: Those systems with pertinent positive or pertinent negative responses have been documented in the HPI. ROS Other: All systems not noted in ROS Statement are negative. Past Medical History Past Medical History: Asthma, Diabetes Mellitus, GERD/Reflux Additional Past Medical History / Comment(s): migraines, degenerative disk disease, endometriosis, lupus, pancreatitis History of Any Multi-Drug Resistant Organisms: None Reported Past Surgical History: Orthopedic Surgery Additional Past Surgical History / Comment(s): laparoscopc surgery for endometriosis, cyst removed from left foot, EGD, Past Anesthesia/Blood Transfusion Reactions: Previous Problems w/ Anesthesia Additional Past Anesthesia/Blood Transfusion Reaction / Comment(s): hard to wake up for 48-72 hours after laparoscopic surgery-was in hosp. for 3 days Past Psychological History: Anxiety, Depression, PTSD Smoking Status: Former smoker Past Alcohol Use History: None Reported Past Drug Use History: Marijuana - Past Family History Mother Family Medical History: No Reported History Additional Family Medical History / Comment(s): hx migraines Father Family Medical History: Coronary Artery Disease (CAD), Hypertension Additional Family Medical History / Comment(s): ddd, alcoholism & drug use General Exam - General Exam Comments Initial Comments: Left arm: Patient has a radial pulse 2+ seconds. Patient does have pain with flexion and extension of the left shoulder. Able to flex and abduction of shoulder 90. Left leg. DP pulse 2+. Capillary refill less than 2 seconds. Pain with range of motion of the left hip however patient is able to flex 60 and extend to neutral position. Limitations: no limitations General appearance: alert, in no apparent distress Head exam: Present: atraumatic Eye exam: Present: normal appearance, PERRL, EOMI. Absent: scleral icterus, conjunctival injection ENT exam: Present: normal exam, mucous membranes moist Neck exam: Present: normal inspection, full ROM. Absent: tenderness Respiratory exam: Present: normal lung sounds bilaterally. Absent: respiratory distress, wheezes Cardiovascular Exam: Present: regular rate, normal rhythm, normal heart sounds Course Vital Signs 02/18/21 02/18/21 19:30 22:11 Temperature 99.5 F Pulse Rate 119 H 105 H Respiratory 19 18 Rate Blood Pressure 102/70 124/89 O2 Sat by Pulse 99 95 Oximetry Medical Decision Making - Medical Decision Making vitals are stable. Patient initially tachycardic likely secondary to pain. No significant abdominal tenderness. Patient does have pain with movement of the left arm and leg. CBC is unremarkable. White blood cell count is normal. CMP unremarkable. Hyperglycemia however patient has a history of diabetes. Urinalysis is contaminated with squamous cells. No obvious evidence of infection. Patient was given Toradol and Norflex. At this time suspect pain is musculoskeletal in nature. Patient can be discharged home to follow up with primary care. - Lab Data Result diagrams: 02/18/21 21:57 02/18/21 21:57 Lab Results 02/18/21 02/18/21 02/18/21 Range/Units 21:57 21:57 21:57 WBC 8.0 (3.8-10.6) k/uL RBC 4.45 (3.80-5.40) m/uL Hgb 13.8 (11.4-16.0) gm/dL Hct 40.5 (34.0-46.0) % MCV 91.0 (80.0-100.0) fL MCH 30.9 (25.0-35.0) pg MCHC 34.0 (31.0-37.0) g/dL RDW 12.9 (11.5-15.5) % Plt Count 155 (150-450) k/uL MPV 9.3 Neutrophils % 59 % Lymphocytes % 34 % Monocytes % 4 % Eosinophils % 2 % Basophils % 0 % Neutrophils # 4.7 (1.3-7.7) k/uL Lymphocytes # 2.7 (1.0-4.8) k/uL Monocytes # 0.3 (0-1.0) k/uL Eosinophils # 0.2 (0-0.7) k/uL Basophils # 0.0 (0-0.2) k/uL Sodium 136 L (137-145) mmol/L Potassium 4.8 (3.5-5.1) mmol/L Chloride 111 H (98-107) mmol/L Carbon Dioxide 17 L (22-30) mmol/L Anion Gap 8 mmol/L BUN 13 (7-17) mg/dL Creatinine 0.78 (0.52-1.04) mg/dL Est GFR (CKD-EPI)AfAm >90 (>60 ml/min/1.73 sqM) Est GFR (CKD-EPI)NonAf >90 (>60 ml/min/1.73 sqM) Glucose 189 H (74-99) mg/dL Calcium 10.5 H (8.4-10.2) mg/dL Total Bilirubin 0.6 (0.2-1.3) mg/dL AST 34 (14-36) U/L ALT 17 (4-34) U/L Alkaline Phosphatase 57 (38-126) U/L Total Protein 7.2 (6.3-8.2) g/dL Albumin 3.8 (3.5-5.0) g/dL Urine Color Yellow Urine Appearance Turbid H (Clear) Urine pH 7.0 (5.0-8.0) Ur Specific [place] 1.017 (1.001-1.035) Urine Protein Trace H (Negative) Urine Glucose (UA) Trace H (Negative) Urine Ketones Negative (Negative) Urine Blood Large H (Negative) Urine Nitrite Negative (Negative) Urine Bilirubin Negative (Negative) Urine Urobilinogen 2.0 (<2.0) mg/dL Ur Leukocyte Esterase Small H (Negative) Urine RBC 4 (0-5) /hpf Urine WBC 6 H (0-5) /hpf Ur Squamous Epith Cells 5 H (0-4) /hpf Amorphous Sediment Occasional H (None) /hpf Urine Bacteria Rare H (None) /hpf Urine Mucus Few H (None) /hpf Urine HCG, Qual (Not Detectd) 02/18/21 Range/Units 21:57 WBC (3.8-10.6) k/uL RBC (3.80-5.40) m/uL Hgb (11.4-16.0) gm/dL Hct (34.0-46.0) % MCV (80.0-100.0) fL MCH (25.0-35.0) pg MCHC (31.0-37.0) g/dL RDW (11.5-15.5) % Plt Count (150-450) k/uL MPV Neutrophils % % Lymphocytes % % Monocytes % % Eosinophils % % Basophils % % Neutrophils # (1.3-7.7) k/uL Lymphocytes # (1.0-4.8) k/uL Monocytes # (0-1.0) k/uL Eosinophils # (0-0.7) k/uL Basophils # (0-0.2) k/uL Sodium (137-145) mmol/L Potassium (3.5-5.1) mmol/L Chloride (98-107) mmol/L Carbon Dioxide (22-30) mmol/L Anion Gap mmol/L BUN (7-17) mg/dL Creatinine (0.52-1.04) mg/dL Est GFR (CKD-EPI)AfAm (>60 ml/min/1.73 sqM) Est GFR (CKD-EPI)NonAf (>60 ml/min/1.73 sqM) Glucose (74-99) mg/dL Calcium (8.4-10.2) mg/dL Total Bilirubin (0.2-1.3) mg/dL AST (14-36) U/L ALT (4-34) U/L Alkaline Phosphatase (38-126) U/L Total Protein (6.3-8.2) g/dL Albumin (3.5-5.0) g/dL Urine Color Urine Appearance (Clear) Urine pH (5.0-8.0) Ur Specific [place] (1.001-1.035) Urine Protein (Negative) Urine Glucose (UA) (Negative) Urine Ketones (Negative) Urine Blood (Negative) Urine Nitrite (Negative) Urine Bilirubin (Negative) Urine Urobilinogen (<2.0) mg/dL Ur Leukocyte Esterase (Negative) Urine RBC (0-5) /hpf Urine WBC (0-5) /hpf Ur Squamous Epith Cells (0-4) /hpf Amorphous Sediment (None) /hpf Urine Bacteria (None) /hpf Urine Mucus (None) /hpf Urine HCG, Qual Not Detected (Not Detectd) Disposition Clinical Impression: Arm pain, left, Leg pain, left Disposition: HOME SELF-CARE Condition: Good Instructions (If sedation given, give patient instructions): Arm Pain (ED), Leg Pain (ED) Additional Instructions: Please follow-up with your doctor in one to 2 days. Return to the emergency room for any worsening symptoms. Is patient prescribed a controlled substance at d/c from ED?: No Referrals: Jorje Mayes MD [Primary Care Provider] - 1-2 days Time of Disposition: 23:13
[2021-02-18 22:15] VITALS: RESP 18
[2021-02-18 22:28] LABS: ALT 17 U/L (4-34); AST 34 U/L (14-36); African American GFR (CKD) >90 (>60 ml/min/1.73 sqM); Albumin 3.8 g/dL (3.5-5.0); Alkaline Phosphatase 57 U/L (38-126); Anion Gap 8 mmol/L; Blood Urea Nitrogen 13 mg/dL (7-17); Calcium 10.5 mg/dL (8.4-10.2); Carbon Dioxide 17 mmol/L (22-30); Chloride 111 mmol/L (98-107); Glucose 189 mg/dL (74-99); Non-African American GFR(CKD) >90 (>60 ml/min/1.73 sqM); Sodium 136 mmol/L (137-145); Total Bilirubin 0.6 mg/dL (0.2-1.3); Total Protein 7.2 g/dL (6.3-8.2)
[2021-02-18 22:31] LABS: Potassium 4.8 mmol/L (3.5-5.1)
[2021-02-18 22:46] LABS: Amorphous Sediment,Urine Occasional /hpf; Appearance,Urine Turbid (Clear); Bacteria,Urine Rare /hpf; Bilirubin,Urine Negative (Negative); Blood,Urine Large (Negative); Color,Urine Yellow; Glucose,Urine (UA) Trace (Negative); Ketones,Urine Negative (Negative); Leukocyte Esterase,Urine Small (Negative); Mucus,Urine Few /hpf; Nitrite,Urine Negative (Negative); Protein,Urine Trace (Negative); RBC,Urine 4 /hpf (0-5); Specific Gravity,Urine 1.017 (1.001-1.035); Squamous Epithelial Cell,Urine 5 /hpf (0-4); WBC,Urine 6 /hpf (0-5)
[2021-02-18] MEDS ORDERED: HYDROmorphone 0.5 MG/0.5 ML SYRINGE IM STA (23:15)
[2021-02-18 23:27] VITALS: BP 148/96; PULSE 103; TEMP 98.3
== END 2021-02-18 23:27 | disposition home or self-care (01) ==
LOC: EC 19:15
DX: M79.605 Pain in left leg (principal); M79.602 Pain in left arm; J45.909 Unspecified asthma, uncomplicated; E11.9 Type 2 diabetes mellitus without complications; K21.9 Gastro-esophageal reflux disease without esophagitis; F41.9 Anxiety disorder, unspecified; F32.9 Major depressive disorder, single episode, unspecified; F43.12 Post-traumatic stress disorder, chronic; F12.90 Cannabis use, unspecified, uncomplicated; Z88.1 Allergy status to other antibiotic agents; Z88.0 Allergy status to penicillin; Z88.2 Allergy status to sulfonamides; Z91.040 Latex allergy status; Z88.5 Allergy status to narcotic agent; Z87.891 Personal history of nicotine dependence
CPT/HCPCS: 99283; 96372 ×3; 36415; 80053; 85025; 81001; 81025; J2360; J1885; J1170

== ENCOUNTER 2021-02-23 13:53 | Emergency (ER) | payer OTHER ==
[2021-02-23 14:14] VITALS: BP 106/79; PULSE 99; RESP 16; TEMP 97.6
--- NOTE | 2021-02-23 15:54 | ED ---
General Adult HPI - General Chief complaint: Headache Stated complaint: Headache/Shoulder pain Time Seen by Provider: 02/23/21 15:04 Source: patient, RN notes reviewed Mode of arrival: ambulatory Limitations: no limitations - History of Present Illness Initial comments: 30-year-old female presents to the emergency Department with complaints of left shoulder pain that radiates from her neck down her arm, onset 4 days prior to arrival. Patient states she was helping move a heavy dresser, however denies doing any lifting. Patient states the pain is made worse by movement of the left shoulder, upper arm, and rotational movement of the neck. Patient states she's been seen by her primary care provider who prescribed her oral Toradol and methocarbamol. Patient states she took both of these medicines this morning with no improvement in symptoms. - Related Data Home Medications Medication Instructions Recorded Confirmed Fenofibrate Nanocrystallized 145 mg PO HS 11/06/20 02/10/21 [Fenofibrate] Rimegepant Sulfate [Nurtec Odt] 75 mg PO DAILY PRN 11/06/20 02/10/21 tiZANidine HCL 4 mg PO BID PRN 11/06/20 02/10/21 Albuterol Sulfate [Proair Hfa] 1 - 2 puff INHALATION RT-Q6H PRN 11/11/20 02/10/21 Fluticasone Nasal [place] [Flonase 2 spr EA NOSTRIL DAILY PRN 01/06/21 02/10/21 Nasal [place]] Pioglitazone HCl 15 mg PO DAILY 01/06/21 02/10/21 Meclizine HCl 25 mg PO BID PRN 01/25/21 02/10/21 Pravastatin Sodium [Pravachol] 40 mg PO DAILY 01/25/21 02/10/21 Previous Rx's Medication Instructions Recorded Pantoprazole [Protonix] 40 mg PO BID #60 tab 01/27/21 Escitalopram [Lexapro] 10 mg PO HS 30 Days tab 02/10/21 Melatonin 3 mg PO HS 30 Days tablet 02/10/21 Prazosin [Minipress] 3 mg PO HS 30 Days cap 02/10/21 Propranolol [Inderal] 10 mg PO BID 30 Days tab 02/10/21 QUEtiapine [SEROquel] 300 mg PO HS 30 Days tab 02/10/21 Topiramate [Topamax] 50 mg PO BID 30 Days tab 02/10/21 traZODone HCL [Desyrel] 100 mg PO HS 30 Days tab 02/10/21 Allergies Allergy/AdvReac Type Severity Reaction Status Date / Time bee pollen Allergy Severe Anaphylaxis Verified 02/23/21 14:14 haloperidol [From Haldol] Allergy Severe QUIT Verified 02/23/21 14:14 BREATHING haloperidol lactate Allergy Severe QUIT Verified 02/23/21 14:14 [From Haldol] BREATHING latex Allergy Severe RASH-THROAT Verified 02/23/21 14:14 CLOSES tramadol Allergy Severe Nausea & Verified 02/23/21 14:14 Vomiting murrieta Allergy Anaphylaxis Verified 02/23/21 14:14 coconut Allergy Anaphylaxis Verified 02/23/21 14:14 pineapple Allergy Anaphylaxis Verified 02/23/21 14:14 prednisone Allergy THROAT Verified 02/23/21 14:14 SWELLS spider venom Allergy Swelling Verified 02/23/21 14:14 Sulfa (Sulfonamide Allergy THROAT Verified 02/23/21 14:14 Antibiotics) SWELLS venom-wasp Allergy Swelling Verified 02/23/21 14:14 venom-wasp protein Allergy Swelling Verified 02/23/21 14:14 promethazine HCl AdvReac Severe Nausea & Verified 02/23/21 14:14 [From Phenergan] Vomiting amoxicillin AdvReac Nausea & Verified 02/23/21 14:14 Vomiting ANTS Allergy Mild Anaphylaxis Uncoded 02/23/21 14:14 Review of Systems ROS Statement: Those systems with pertinent positive or pertinent negative responses have been documented in the HPI. ROS Other: All systems not noted in ROS Statement are negative. Past Medical History Past Medical History: Asthma, Diabetes Mellitus, GERD/Reflux Additional Past Medical History / Comment(s): migraines, degenerative disk disease, endometriosis, lupus, pancreatitis History of Any Multi-Drug Resistant Organisms: None Reported Past Surgical History: Orthopedic Surgery Additional Past Surgical History / Comment(s): laparoscopc surgery for endometriosis, cyst removed from left foot, EGD, Past Anesthesia/Blood Transfusion Reactions: Previous Problems w/ Anesthesia Additional Past Anesthesia/Blood Transfusion Reaction / Comment(s): hard to wake up for 48-72 hours after laparoscopic surgery-was in hosp. for 3 days Past Psychological History: Anxiety, Depression, PTSD Smoking Status: Former smoker Past Alcohol Use History: None Reported Past Drug Use History: Marijuana - Past Family History Mother Family Medical History: No Reported History Additional Family Medical History / Comment(s): hx migraines Father Family Medical History: Coronary Artery Disease (CAD), Hypertension Additional Family Medical History / Comment(s): ddd, alcoholism & drug use General Exam Limitations: no limitations General appearance: alert, other Head exam: Present: atraumatic (Developed, well-nourished female who presents to the emergency Department tearful complaining of left shoulder pain. Initial temperature 97.6, pulse 99, respirations 16, blood pressure 106/79, pulse ox 100% on room air.), normocephalic, normal inspection ENT exam: Present: mucous membranes moist, normal external ear exam Neck exam: Present: normal inspection, tenderness (Left lateral neck tenderness upon palpation.), other (Pain worsens with rotational movement of the neck towards the right.). Absent: meningismus, lymphadenopathy Respiratory exam: Present: normal lung sounds bilaterally. Absent: respiratory distress, wheezes, rales, rhonchi, stridor Cardiovascular Exam: Present: regular rate, normal rhythm, normal heart sounds. Absent: systolic murmur, diastolic murmur, rubs, gallop, clicks Left General: Present: normal inspection (Pain upon palpation from the left lateral neck down the left shoulder to the middle of the upper arm) Shoulder Exam: Present: normal inspection, tenderness. Absent: full ROM (States pain is too bad to move her shoulder), swelling, deformity, tenderness over AC joint Upper Arm exam: Present: normal inspection, tenderness. Absent: full ROM Elbow exam: Present: normal inspection. Absent: tenderness Forearm Wrist exam: Present: normal inspection, full ROM. Absent: tenderness Hand Wrist exam: Present: normal inspection, full ROM. Absent: tenderness Neuro motor exam: Present: thumb adduction intact, fingers 2-5 abduction intact Vascular: Present: normal capillary refill, radial pulse, brachial pulse, ulnar pulse. Absent: vascular compromise Back exam: Present: normal inspection. Absent: tenderness, paraspinal tenderness Neurological exam: Present: alert, oriented X3, CN II-XII intact Psychiatric exam: Present: anxious Skin exam: Present: warm, dry, intact, normal color. Absent: rash Course Vital Signs 02/23/21 14:09 Temperature 97.6 F Pulse Rate 99 Respiratory 16 Rate Blood Pressure 106/79 O2 Sat by Pulse 100 Oximetry Medical Decision Making - Medical Decision Making 30-year-old female presents to the emergency department for evaluation of left shoulder pain that extends from the left side of the neck to the left upper arm. She states she was moving a heavy dresser 4 days ago and has had this discomfort since. Upon exam, patient has pain with palpation of the left lateral aspect of the shoulder, into the neck, and down to the mid upper arm. Patient has decreased range of motion initially, however after being administered pain medication and muscle relaxer, patient was observed with her left arm raised above the side rail utilizing her phone to text. Patient does continue to complain of pain and is requesting another dose of pain medication prior to departure. I explained that she was on appropriate oral therapy as prescribed by her primary care provider. Informed her that the shoulder x-ray obtained was unremarkable. Patient will be discharged home to follow-up with her PCP as needed. Return parameters were discussed in detail. Patient verbalizes understanding. This patient's care was discussed with my attending Dr. Avalos. - Radiology Data Radiology results: report reviewed, image reviewed X-ray of the left shoulder was obtained. Report was reviewed in its entirety. Impression per Dr. Garza is no acute fracture or dislocation in the left shoulder. Disposition Clinical Impression: Left shoulder strain Disposition: HOME SELF-CARE Condition: Stable Instructions (If sedation given, give patient instructions): Arthralgia (ED) Additional Instructions: Maintain mobility with gentle range of motion exercises. May alternate heat or ice for discomfort. Continue taking home medications as prescribed by your primary care provider. Follow-up with her family doctor for recheck next 1-2 days. Emergency department with any new, worsening, or concerning symptoms. Is patient prescribed a controlled substance at d/c from ED?: No Referrals: Jorje Mayes MD [Primary Care Provider] - 1-2 days Time of Disposition: 17:47
[2021-02-23] MEDS ORDERED: Acetaminophen-Codeine 300-30mg TAB PO STA (16:00)
[2021-02-23] MEDS ORDERED: ORPHENADRINE 30 MG/ML 2 ML VIAL IM STA (16:00)
--- NOTE | 2021-02-23 16:51 | XR ---
EXAMINATION TYPE: XR shoulder complete LT DATE OF EXAM: 02/23/2021 CLINICAL HISTORY: Left shoulder pain. TECHNIQUE: Three views of the left shoulder are obtained. COMPARISON: None. FINDINGS: There is no acute fracture/dislocation evident in the left shoulder. The acromioclavicula r and glenohumeral joint spaces appear within normal limits. The visualized ribs are intact and unre markable. IMPRESSION: There is no acute fracture or dislocation in the left shoulder.
== END 2021-02-23 18:13 | disposition home or self-care (01) ==
LOC: EC 13:53
DX: S46.912A Strain of unspecified muscle, fascia and tendon at shoulder and upper arm level, left arm, initial encounter (principal); E11.9 Type 2 diabetes mellitus without complications; J45.909 Unspecified asthma, uncomplicated; F41.9 Anxiety disorder, unspecified; K21.9 Gastro-esophageal reflux disease without esophagitis; F32.9 Major depressive disorder, single episode, unspecified; Z79.84 Long term (current) use of oral hypoglycemic drugs; Z79.51 Long term (current) use of inhaled steroids; Z79.899 Other long term (current) drug therapy; F12.90 Cannabis use, unspecified, uncomplicated; Z87.891 Personal history of nicotine dependence; Z88.2 Allergy status to sulfonamides; Z88.0 Allergy status to penicillin; Z88.5 Allergy status to narcotic agent; Z88.8 Allergy status to other drugs, medicaments and biological substances; Z82.49 Family history of ischemic heart disease and other diseases of the circulatory system; X50.0XXA Overexertion from strenuous movement or load, initial encounter
CPT/HCPCS: 73030; 96372; 99283; J2360

== ENCOUNTER 2021-02-25 01:09 | Emergency (ER) | payer OTHER ==
[2021-02-25 01:17] VITALS: RESP 18
[2021-02-25] MEDS ORDERED: KETOROLAC 15 MG/ML 1 ML VIAL IVP STA (05:56)
[2021-02-25 06:32] LABS: Basophils % (A) 0 %; Eosinophils # (A) 0.1 k/uL (0-0.7); Eosinophils % (A) 2 %; HCT 37.4 % (34.0-46.0); HGB 12.7 gm/dL (11.4-16.0); Lymphocytes # (A) 3.2 k/uL (1.0-4.8); Lymphocytes % (A) 47 %; MCH 30.7 pg (25.0-35.0); MCV 90.5 fL (80.0-100.0); Mean Platelet Volume 7.7; Monocytes # (A) 0.3 k/uL (0-1.0); Monocytes % (A) 4 %; Neutrophils % (A) 44 %; Platelet Count 223 k/uL (150-450); RBC 4.13 m/uL (3.80-5.40); WBC 6.8 k/uL (3.8-10.6)
[2021-02-25 06:33] LABS: ALT 26 U/L (4-34); AST 39 U/L (14-36); African American GFR (CKD) >90 (>60 ml/min/1.73 sqM); Albumin 3.5 g/dL (3.5-5.0); Alkaline Phosphatase 56 U/L (38-126); Anion Gap 8 mmol/L; Blood Urea Nitrogen 17 mg/dL (7-17); C Reactive Protein 0.6 mg/dL (<1.0); Carbon Dioxide 18 mmol/L (22-30); Chloride 106 mmol/L (98-107); Glucose 214 mg/dL (74-99); Non-African American GFR(CKD) 82 (>60 ml/min/1.73 sqM); Sodium 132 mmol/L (137-145); Total Bilirubin 0.5 mg/dL (0.2-1.3); Total Protein 6.9 g/dL (6.3-8.2)
[2021-02-25 06:45] LABS: Potassium 5.5 mmol/L (3.5-5.1)
[2021-02-25] MEDS ORDERED: SODIUM CHLORIDE 0.9% 500 ML 500 ML IV STA (06:45)
--- NOTE | 2021-02-25 06:48 | ED ---
General Adult HPI - General Chief complaint: Recheck/Abnormal Lab/Rx Stated complaint: Abdominal pain, migraine Time Seen by Provider: 02/25/21 05:55 Source: patient Mode of arrival: ambulatory Limitations: no limitations - History of Present Illness Initial comments: 30-year-old female presents to the emergency room for multiple complaints. Patient presents for upper abdominal pain as well as headache. The symptoms have been ongoing for weeks. She denies any lower abdominal pain. Vomiting. Denies fevers. patient states headache feels consistent with previous migraines. Denies worst headache of her life. Denies thunderclap symptomology. Patient requesting pain medication. Patient has no other complaints at this time including shortness of breath, chest pain, nausea or vomiting, or visual changes. - Related Data Home Medications Medication Instructions Recorded Confirmed Fenofibrate Nanocrystallized 145 mg PO HS 11/06/20 02/10/21 [Fenofibrate] Rimegepant Sulfate [Nurtec Odt] 75 mg PO DAILY PRN 11/06/20 02/10/21 tiZANidine HCL 4 mg PO BID PRN 11/06/20 02/10/21 Albuterol Sulfate [Proair Hfa] 1 - 2 puff INHALATION RT-Q6H PRN 11/11/20 02/10/21 Fluticasone Nasal [place] [Flonase 2 spr EA NOSTRIL DAILY PRN 01/06/21 02/10/21 Nasal [place]] Pioglitazone HCl 15 mg PO DAILY 01/06/21 02/10/21 Meclizine HCl 25 mg PO BID PRN 01/25/21 02/10/21 Pravastatin Sodium [Pravachol] 40 mg PO DAILY 01/25/21 02/10/21 Previous Rx's Medication Instructions Recorded Pantoprazole [Protonix] 40 mg PO BID #60 tab 01/27/21 Escitalopram [Lexapro] 10 mg PO HS 30 Days tab 02/10/21 Melatonin 3 mg PO HS 30 Days tablet 02/10/21 Prazosin [Minipress] 3 mg PO HS 30 Days cap 02/10/21 Propranolol [Inderal] 10 mg PO BID 30 Days tab 02/10/21 QUEtiapine [SEROquel] 300 mg PO HS 30 Days tab 02/10/21 Topiramate [Topamax] 50 mg PO BID 30 Days tab 02/10/21 traZODone HCL [Desyrel] 100 mg PO HS 30 Days tab 02/10/21 Allergies Allergy/AdvReac Type Severity Reaction Status Date / Time bee pollen Allergy Severe Anaphylaxis Verified 02/25/21 01:17 haloperidol [From Haldol] Allergy Severe QUIT Verified 02/25/21 01:17 BREATHING haloperidol lactate Allergy Severe QUIT Verified 02/25/21 01:17 [From Haldol] BREATHING latex Allergy Severe RASH-THROAT Verified 02/25/21 01:17 CLOSES tramadol Allergy Severe Nausea & Verified 02/25/21 01:17 Vomiting [place] Allergy Anaphylaxis Verified 02/25/21 01:17 coconut Allergy Anaphylaxis Verified 02/25/21 01:17 pineapple Allergy Anaphylaxis Verified 02/25/21 01:17 prednisone Allergy THROAT Verified 02/25/21 01:17 SWELLS spider venom Allergy Swelling Verified 02/25/21 01:17 Sulfa (Sulfonamide Allergy THROAT Verified 02/25/21 01:17 Antibiotics) SWELLS venom-wasp Allergy Swelling Verified 02/25/21 01:17 venom-wasp protein Allergy Swelling Verified 02/25/21 01:17 promethazine HCl AdvReac Severe Nausea & Verified 02/25/21 01:17 [From Phenergan] Vomiting amoxicillin AdvReac Nausea & Verified 02/25/21 01:17 Vomiting ANTS Allergy Mild Anaphylaxis Uncoded 02/25/21 01:17 Review of Systems ROS Statement: Those systems with pertinent positive or pertinent negative responses have been documented in the HPI. ROS Other: All systems not noted in ROS Statement are negative. Past Medical History Past Medical History: Asthma, Diabetes Mellitus, GERD/Reflux Additional Past Medical History / Comment(s): migraines, degenerative disk disease, endometriosis, lupus, pancreatitis History of Any Multi-Drug Resistant Organisms: None Reported Past Surgical History: Orthopedic Surgery Additional Past Surgical History / Comment(s): laparoscopc surgery for endometriosis, cyst removed from left foot, EGD, Past Anesthesia/Blood Transfusion Reactions: Previous Problems w/ Anesthesia Additional Past Anesthesia/Blood Transfusion Reaction / Comment(s): hard to wake up for 48-72 hours after laparoscopic surgery-was in hosp. for 3 days Past Psychological History: Anxiety, Depression, PTSD Smoking Status: Former smoker Past Alcohol Use History: None Reported Past Drug Use History: Marijuana - Past Family History Mother Family Medical History: No Reported History Additional Family Medical History / Comment(s): hx migraines Father Family Medical History: Coronary Artery Disease (CAD), Hypertension Additional Family Medical History / Comment(s): ddd, alcoholism & drug use General Exam Limitations: no limitations General appearance: alert, in no apparent distress (resting comfortably, sleeping) Head exam: Present: atraumatic Eye exam: Present: normal appearance, PERRL, EOMI ENT exam: Present: normal exam, mucous membranes moist Neck exam: Present: normal inspection, full ROM. Absent: tenderness Respiratory exam: Present: normal lung sounds bilaterally. Absent: respiratory distress, wheezes Cardiovascular Exam: Present: regular rate, normal rhythm, normal heart sounds GI/Abdominal exam: Present: soft, tenderness (minimal epigastric tenderness, no lower abdominal tenderness), normal bowel sounds. Absent: distended Neurological exam: Present: alert Course Vital Signs 02/25/21 01:15 Temperature 98.1 F Pulse Rate 102 H Respiratory 18 Rate Blood Pressure 119/85 O2 Sat by Pulse 97 Oximetry Medical Decision Making - Medical Decision Making vitals stable. CBC unremarkable. CMP shows a hemolyzed specimen. CO2 somewhat lower however this is chronic for patient. Glucose is 214 however patient has a history of diabetes. At this time patient is stable for outpatient follow-up. Will be discharged home. - Lab Data Result diagrams: 02/25/21 05:56 02/25/21 05:56 Lab Results 02/25/21 02/25/21 02/25/21 Range/Units 05:56 05:56 05:56 WBC 6.8 (3.8-10.6) k/uL RBC 4.13 (3.80-5.40) m/uL Hgb 12.7 (11.4-16.0) gm/dL Hct 37.4 (34.0-46.0) % MCV 90.5 (80.0-100.0) fL MCH 30.7 (25.0-35.0) pg MCHC 34.0 (31.0-37.0) g/dL RDW 13.0 (11.5-15.5) % Plt Count 223 (150-450) k/uL MPV 7.7 Neutrophils % 44 % Lymphocytes % 47 % Monocytes % 4 % Eosinophils % 2 % Basophils % 0 % Neutrophils # 3.0 (1.3-7.7) k/uL Lymphocytes # 3.2 (1.0-4.8) k/uL Monocytes # 0.3 (0-1.0) k/uL Eosinophils # 0.1 (0-0.7) k/uL Basophils # 0.0 (0-0.2) k/uL Sodium 132 L (137-145) mmol/L Potassium 5.5 H (3.5-5.1) mmol/L Chloride 106 (98-107) mmol/L Carbon Dioxide 18 L (22-30) mmol/L Anion Gap 8 mmol/L BUN 17 (7-17) mg/dL Creatinine 0.94 (0.52-1.04) mg/dL Est GFR (CKD-EPI)AfAm >90 (>60 ml/min/1.73 sqM) Est GFR (CKD-EPI)NonAf 82 (>60 ml/min/1.73 sqM) Glucose 214 H (74-99) mg/dL Calcium 10.0 (8.4-10.2) mg/dL Total Bilirubin 0.5 (0.2-1.3) mg/dL AST 39 H (14-36) U/L ALT 26 (4-34) U/L Alkaline Phosphatase 56 (38-126) U/L C-Reactive Protein 0.6 (<1.0) mg/dL Total Protein 6.9 (6.3-8.2) g/dL Albumin 3.5 (3.5-5.0) g/dL Lipase 123 (23-300) U/L Disposition Clinical Impression: Epigastric abdominal pain, Headache Disposition: HOME SELF-CARE Condition: Good Instructions (If sedation given, give patient instructions): Abdominal Pain (ED) Additional Instructions: Please follow up with primary care in 1-2 days. Return to the ER for any worsening symptoms. Is patient prescribed a controlled substance at d/c from ED?: No Referrals: Jorje Mayes MD [Primary Care Provider] - 1-2 days Time of Disposition: 07:49
[2021-02-25 08:36] VITALS: BP 145/87; PULSE 85; TEMP 98.7
== END 2021-02-25 08:36 | disposition home or self-care (01) ==
LOC: EC 01:09
DX: R10.13 Epigastric pain (principal); R51.9 Headache, unspecified; J45.909 Unspecified asthma, uncomplicated; E11.9 Type 2 diabetes mellitus without complications; K21.9 Gastro-esophageal reflux disease without esophagitis; F41.9 Anxiety disorder, unspecified; F32.9 Major depressive disorder, single episode, unspecified; F12.90 Cannabis use, unspecified, uncomplicated; Z91.040 Latex allergy status; Z88.1 Allergy status to other antibiotic agents; Z88.2 Allergy status to sulfonamides; Z88.0 Allergy status to penicillin; Z87.891 Personal history of nicotine dependence
CPT/HCPCS: 99284; 96374; 96361; 36415; 80053; 83690; 85025; 86140; J1885

== ENCOUNTER 2021-02-27 12:03 | Emergency (ER) | payer OTHER ==
[2021-02-27 14:55] VITALS: BP 121/90; PULSE 98; RESP 18; TEMP 97.7
[2021-02-27] MEDS ORDERED: diphenhydrAMINE 50 MG/ML 1 ML VIAL IM STA (18:33)
[2021-02-27] MEDS ORDERED: KETOROLAC 30 MG/ML 1 ML VIAL IM STA (18:33)
--- NOTE | 2021-02-27 18:42 | ED ---
General Adult HPI - General Chief complaint: Headache Stated complaint: Headache Time Seen by Provider: 02/27/21 18:25 Source: patient, RN notes reviewed, old records reviewed Mode of arrival: ambulatory Limitations: no limitations - History of Present Illness Initial comments: This is a well-appearing 30-year-old female who presents to the emergency room with complaints of a headache that started last night. She states she was unable to sleep. She took her Excedrin Migraine, nurtec and the new medication ubrelvy that was prescribed 2 weeks ago by her primary care doctor. Patient has chronic migraine headaches. He is at the bedside and states that she was directed to follow up with a clinic for migraine headaches but it is not covered by her insurance. She states that this feels similar to her previous headaches. She denies any fevers, nausea, vomiting or diarrhea. She does have a history of diabetes, asthma, migraines, GERD, degenerative disc disease -: days(s) (1) Location: head (temporal bilateral) Radiation: non-radiation Severity scale (1-10): 9 Quality: constant Consistency: constant Improves with: none Worsens with: none Associated Symptoms: denies other symptoms Treatments Prior to Arrival: other (ubrevly, excedrin migraine, nurtec) - Related Data Home Medications Medication Instructions Recorded Confirmed Fenofibrate Nanocrystallized 145 mg PO HS 11/06/20 02/10/21 [Fenofibrate] Rimegepant Sulfate [Nurtec Odt] 75 mg PO DAILY PRN 11/06/20 02/10/21 tiZANidine HCL 4 mg PO BID PRN 11/06/20 02/10/21 Albuterol Sulfate [Proair Hfa] 1 - 2 puff INHALATION RT-Q6H PRN 11/11/20 02/10/21 Fluticasone Nasal [place] [Flonase 2 spr EA NOSTRIL DAILY PRN 01/06/21 02/10/21 Nasal [place]] Pioglitazone HCl 15 mg PO DAILY 01/06/21 02/10/21 Meclizine HCl 25 mg PO BID PRN 01/25/21 02/10/21 Pravastatin Sodium [Pravachol] 40 mg PO DAILY 01/25/21 02/10/21 Previous Rx's Medication Instructions Recorded Pantoprazole [Protonix] 40 mg PO BID #60 tab 01/27/21 Escitalopram [Lexapro] 10 mg PO HS 30 Days tab 02/10/21 Melatonin 3 mg PO HS 30 Days tablet 02/10/21 Prazosin [Minipress] 3 mg PO HS 30 Days cap 02/10/21 Propranolol [Inderal] 10 mg PO BID 30 Days tab 02/10/21 QUEtiapine [SEROquel] 300 mg PO HS 30 Days tab 02/10/21 Topiramate [Topamax] 50 mg PO BID 30 Days tab 02/10/21 traZODone HCL [Desyrel] 100 mg PO HS 30 Days tab 02/10/21 Allergies Allergy/AdvReac Type Severity Reaction Status Date / Time bee pollen Allergy Severe Anaphylaxis Verified 02/25/21 01:17 haloperidol [From Haldol] Allergy Severe QUIT Verified 02/25/21 01:17 BREATHING haloperidol lactate Allergy Severe QUIT Verified 02/25/21 01:17 [From Haldol] BREATHING latex Allergy Severe RASH-THROAT Verified 02/25/21 01:17 CLOSES tramadol Allergy Severe Nausea & Verified 02/25/21 01:17 Vomiting murrieta Allergy Anaphylaxis Verified 02/25/21 01:17 coconut Allergy Anaphylaxis Verified 02/25/21 01:17 pineapple Allergy Anaphylaxis Verified 02/25/21 01:17 prednisone Allergy THROAT Verified 02/25/21 01:17 SWELLS spider venom Allergy Swelling Verified 02/25/21 01:17 Sulfa (Sulfonamide Allergy THROAT Verified 02/25/21 01:17 Antibiotics) SWELLS venom-wasp Allergy Swelling Verified 02/25/21 01:17 venom-wasp protein Allergy Swelling Verified 02/25/21 01:17 promethazine HCl AdvReac Severe Nausea & Verified 02/25/21 01:17 [From Phenergan] Vomiting amoxicillin AdvReac Nausea & Verified 02/25/21 01:17 Vomiting ANTS Allergy Mild Anaphylaxis Uncoded 02/25/21 01:17 Review of Systems ROS Statement: Those systems with pertinent positive or pertinent negative responses have been documented in the HPI. ROS Other: All systems not noted in ROS Statement are negative. Past Medical History Past Medical History: Asthma, Diabetes Mellitus, GERD/Reflux Additional Past Medical History / Comment(s): migraines, degenerative disk disease, endometriosis, lupus, pancreatitis History of Any Multi-Drug Resistant Organisms: None Reported Past Surgical History: Orthopedic Surgery Additional Past Surgical History / Comment(s): laparoscopc surgery for endometriosis, cyst removed from left foot, EGD, Past Anesthesia/Blood Transfusion Reactions: Previous Problems w/ Anesthesia Additional Past Anesthesia/Blood Transfusion Reaction / Comment(s): hard to wake up for 48-72 hours after laparoscopic surgery-was in hosp. for 3 days Past Psychological History: Anxiety, Depression, PTSD Smoking Status: Former smoker Past Alcohol Use History: None Reported Past Drug Use History: Marijuana - Past Family History Mother Family Medical History: No Reported History Additional Family Medical History / Comment(s): hx migraines Father Family Medical History: Coronary Artery Disease (CAD), Hypertension Additional Family Medical History / Comment(s): ddd, alcoholism & drug use General Exam Limitations: no limitations General appearance: alert, in no apparent distress Head exam: Present: atraumatic, normocephalic, normal inspection Eye exam: Present: normal appearance, PERRL, EOMI. Absent: scleral icterus, conjunctival injection, nystagmus, periorbital swelling, periorbital tenderness Pupils: Present: normal accommodation ENT exam: Present: normal exam, normal oropharynx, mucous membranes moist Neck exam: Present: normal inspection, full ROM. Absent: tenderness, meningismus, lymphadenopathy, thyromegaly Respiratory exam: Present: normal lung sounds bilaterally. Absent: respiratory distress, wheezes, rales, rhonchi, stridor, decreased breath sounds Cardiovascular Exam: Present: regular rate, normal rhythm, normal heart sounds. Absent: systolic murmur, diastolic murmur, rubs, gallop, clicks, JVD GI/Abdominal exam: Present: soft, normal bowel sounds. Absent: distended, guarding, rebound, rigid Extremities exam: Present: normal inspection, full ROM, normal capillary refill. Absent: tenderness, pedal edema, joint swelling, calf tenderness Back exam: Absent: tenderness, CVA tenderness (R), CVA tenderness (L) Neurological exam: Present: alert, oriented X3, CN II-XII intact Psychiatric exam: Present: normal affect, normal mood Skin exam: Present: warm, dry, intact, normal color. Absent: rash, cyanosis, diaphoretic Course Vital Signs 02/27/21 14:52 Temperature 97.7 F Pulse Rate 98 Respiratory 18 Rate Blood Pressure 121/90 O2 Sat by Pulse 99 Oximetry Medical Decision Making - Medical Decision Making This is a well-appearing 30-year-old female presents to the emergency room with migraine headache. She states it is bilateral temporal and similar to previous migraine headaches. She states it started last night and she was unable to sleep. She took her prescribed medications with no relief. She denies any fevers, temporal artery pain or vision changes. Patient has no signs of meningitis.Patient has been here 7 times this month for her migraine headaches. She did try to call her current primary care doctor who told her he could not get her in until March. Blood pressure is 121/90. She is afebrile. Cranial nerves are intact. There is no evidence of trismus. She denies any recent trauma. Patient was given Toradol and Benadryl for headache. She had a CTA 11/12/2020 and was unremarkable. I did speak with patient at length regarding the importance of following up with her primary care doctor and her neurologist and that changes to her migraine medications should be done by her doctors. I did speak with the patient and her at length and they're agreeable to this plan of care. Case discussed with Dr. Ray Disposition Clinical Impression: Headache Disposition: HOME SELF-CARE Condition: Good Instructions (If sedation given, give patient instructions): Acute Headache (ED) Additional Instructions: Please follow-up with your primary care doctor for continuation of care and your neurologist for your chronic headaches. Take the medication as previously prescribed by your doctor Is patient prescribed a controlled substance at d/c from ED?: No Referrals: Jorje Mayes MD [Primary Care Provider] - 1-2 days Time of Disposition: 18:41
== END 2021-02-27 19:02 | disposition home or self-care (01) ==
LOC: EC 12:03
DX: R51.9 Headache, unspecified (principal); J45.909 Unspecified asthma, uncomplicated; E11.9 Type 2 diabetes mellitus without complications; K21.9 Gastro-esophageal reflux disease without esophagitis; F41.9 Anxiety disorder, unspecified; F32.9 Major depressive disorder, single episode, unspecified; F43.12 Post-traumatic stress disorder, chronic; F12.90 Cannabis use, unspecified, uncomplicated; Z88.0 Allergy status to penicillin; Z88.1 Allergy status to other antibiotic agents; Z88.2 Allergy status to sulfonamides; Z91.040 Latex allergy status; Z87.891 Personal history of nicotine dependence
CPT/HCPCS: 99283; 96372 ×2; J1200; J1885

== ENCOUNTER 2021-03-16 14:03 | Observation (INO) | payer OTHER ==
[2021-03-16] MEDS ORDERED: SODIUM CHLORIDE 0.9% 1,000 ML IV STA ×2 (15:08→17:55)
[2021-03-16] MEDS ORDERED: METOCLOPRAMIDE 5 MG/ML 2 ML VIAL IVP STA (15:08)
--- NOTE | 2021-03-16 15:08 | ED ---
General Adult HPI - General Chief complaint: Abdominal Pain Stated complaint: Abd.pain,n/v Time Seen by Provider: 03/16/21 15:00 Source: patient, family, RN notes reviewed, old records reviewed Mode of arrival: ambulatory Limitations: no limitations - History of Present Illness Initial comments: 30-year-old female, alert and oriented 4, presents to the emergency room with complaints of nausea vomiting for 2 days. Patient states that she was just dis charged from [facility] 2 days ago for pancreatitis. She states that she was in the hospital for 9 days. She states that she tried liquid diet at home and continues to have vomiting, has been unable to keep any fluids down including water. She has vomited 8 times today yellow in color. She did have one episode of diarrhea yesterday nothing today. She denies any fevers. She is also complaining of right upper quadrant pain. -: days(s) (2) Location: abdomen Radiation: non-radiation Severity scale (1-10): 5 Quality: sharp Consistency: constant Improves with: none Worsens with: none Associated Symptoms: nausea/vomiting Treatments Prior to Arrival: none - Related Data Home Medications Medication Instructions Recorded Confirmed Diclofenac Sodium [Voltaren] 75 mg PO BID 03/16/21 03/16/21 Pantoprazole [Protonix] 40 mg PO DAILY 03/16/21 03/16/21 Topiramate [Topamax] 100 mg PO BID 03/16/21 03/16/21 Previous Rx's Medication Instructions Recorded Escitalopram [Lexapro] 10 mg PO HS 30 Days tab 02/10/21 Melatonin 3 mg PO HS 30 Days tablet 02/10/21 Propranolol [Inderal] 10 mg PO BID 30 Days tab 02/10/21 QUEtiapine [SEROquel] 300 mg PO HS 30 Days tab 02/10/21 traZODone HCL [Desyrel] 100 mg PO HS 30 Days tab 02/10/21 Allergies Allergy/AdvReac Type Severity Reaction Status Date / Time bee pollen Allergy Severe Anaphylaxis Verified 03/16/21 15:57 haloperidol [From Haldol] Allergy Severe QUIT Verified 03/16/21 15:57 BREATHING haloperidol lactate Allergy Severe QUIT Verified 03/16/21 15:57 [From Haldol] BREATHING latex Allergy Severe RASH-THROAT Verified 03/16/21 15:57 CLOSES tramadol Allergy Severe Nausea & Verified 03/16/21 15:57 Vomiting murrieta Allergy Anaphylaxis Verified 03/16/21 15:57 coconut Allergy Anaphylaxis Verified 03/16/21 15:57 pineapple Allergy Anaphylaxis Verified 03/16/21 15:57 prednisone Allergy THROAT Verified 03/16/21 15:57 SWELLS spider venom Allergy Swelling Verified 03/16/21 15:57 Sulfa (Sulfonamide Allergy THROAT Verified 03/16/21 15:57 Antibiotics) SWELLS venom-wasp Allergy Swelling Verified 03/16/21 15:57 venom-wasp protein Allergy Swelling Verified 03/16/21 15:57 promethazine HCl AdvReac Severe Nausea & Verified 03/16/21 15:57 [From Phenergan] Vomiting amoxicillin AdvReac Nausea & Verified 03/16/21 15:57 Vomiting ANTS Allergy Mild Anaphylaxis Uncoded 03/16/21 14:23 Review of Systems ROS Statement: Those systems with pertinent positive or pertinent negative responses have been documented in the HPI. ROS Other: All systems not noted in ROS Statement are negative. Past Medical History Past Medical History: Asthma, Diabetes Mellitus, GERD/Reflux Additional Past Medical History / Comment(s): migraines, degenerative disk disease, endometriosis, lupus, pancreatitis History of Any Multi-Drug Resistant Organisms: None Reported Past Surgical History: Orthopedic Surgery Additional Past Surgical History / Comment(s): laparoscopc surgery for endometriosis, cyst removed from left foot, EGD, Past Anesthesia/Blood Transfusion Reactions: Previous Problems w/ Anesthesia Additional Past Anesthesia/Blood Transfusion Reaction / Comment(s): hard to wake up for 48-72 hours after laparoscopic surgery-was in hosp. for 3 days Past Psychological History: Anxiety, Depression, PTSD Smoking Status: Former smoker Past Alcohol Use History: None Reported Past Drug Use History: Marijuana - Past Family History Mother Family Medical History: No Reported History Additional Family Medical History / Comment(s): hx migraines Father Family Medical History: Coronary Artery Disease (CAD), Hypertension Additional Family Medical History / Comment(s): ddd, alcoholism & drug use General Exam Limitations: no limitations General appearance: alert, in no apparent distress Head exam: Present: atraumatic, normocephalic, normal inspection Eye exam: Present: normal appearance, EOMI ENT exam: Present: normal exam, mucous membranes moist Neck exam: Present: normal inspection, full ROM. Absent: tenderness, meningismus, lymphadenopathy, thyromegaly Respiratory exam: Present: normal lung sounds bilaterally. Absent: respiratory distress, wheezes, rales, rhonchi, stridor Cardiovascular Exam: Present: tachycardia GI/Abdominal exam: Present: soft, tenderness. Absent: distended, guarding (Right upper quadrant), rebound, rigid Extremities exam: Present: full ROM, normal capillary refill, other (Multiple bruises to bilateral upper extremities patient states from multiple IV and blood draws). Absent: pedal edema, joint swelling, calf tenderness Back exam: Present: normal inspection, full ROM. Absent: tenderness, CVA tenderness (R), CVA tenderness (L), rash noted Neurological exam: Present: alert, oriented X3 Psychiatric exam: Present: normal affect, normal mood Skin exam: Present: warm, dry, intact, normal color, other (Bruising to left and right upper chest, yellow green in color). Absent: rash Course Vital Signs 03/16/21 14:21 Temperature 99.0 F Pulse Rate 117 H Respiratory 18 Rate Blood Pressure 146/102 O2 Sat by Pulse 97 Oximetry Medical Decision Making - Medical Decision Making 30-year-old female patient presents to the emergency room with complaints of abdominal pain and vomiting. Patient states that she was just discharged from [facility] with pancreatitis 2 days ago. She states she was hospitalized for 9 days. She states that she has not been able to keep any food or fluids down since being discharged. X-ray of the abdomen shows nonspecific bowel gas pattern, no pneumoperitoneum, no visceromegaly. Ultrasound of the right upper quadrant shows a normal gallbladder. Patient's potassium is 2.8, lipase is 1288, she will be admitted to the hospital for hypokalemia and pancreatitis. There is no evidence of leukocytosis. She was given IV fluids, replacement potassium. Case discussed with Dr. Peña - Lab Data Result diagrams: 03/16/21 15:41 03/16/21 17:04 Lab Results 03/16/21 03/16/21 03/16/21 Range/Units 15:41 16:15 16:15 WBC 7.4 (3.8-10.6) k/uL RBC 4.16 (3.80-5.40) m/uL Hgb 12.2 (11.4-16.0) gm/dL Hct 36.4 (34.0-46.0) % MCV 87.5 (80.0-100.0) fL MCH 29.4 (25.0-35.0) pg MCHC 33.6 (31.0-37.0) g/dL RDW 13.6 (11.5-15.5) % Plt Count 220 (150-450) k/uL MPV 10.8 Neutrophils % 66 % Lymphocytes % 22 % Monocytes % 7 % Eosinophils % 3 % Basophils % 0 % Neutrophils # 4.9 (1.3-7.7) k/uL Lymphocytes # 1.7 (1.0-4.8) k/uL Monocytes # 0.5 (0-1.0) k/uL Eosinophils # 0.2 (0-0.7) k/uL Basophils # 0.0 (0-0.2) k/uL Sodium (137-145) mmol/L Potassium (3.5-5.1) mmol/L Chloride (98-107) mmol/L Carbon Dioxide (22-30) mmol/L Anion Gap mmol/L BUN (7-17) mg/dL Creatinine (0.52-1.04) mg/dL Est GFR (CKD-EPI)AfAm (>60 ml/min/1.73 sqM) Est GFR (CKD-EPI)NonAf (>60 ml/min/1.73 sqM) Glucose (74-99) mg/dL Plasma Lactic Acid Aurelio (0.7-2.0) mmol/L Calcium (8.4-10.2) mg/dL Total Bilirubin (0.2-1.3) mg/dL AST (14-36) U/L ALT (4-34) U/L Alkaline Phosphatase (38-126) U/L Total Protein (6.3-8.2) g/dL Albumin (3.5-5.0) g/dL Amylase (30-110) U/L Lipase (23-300) U/L Urine Color Yellow Urine Appearance Cloudy H (Clear) Urine pH 7.5 (5.0-8.0) Ur Specific [place] 1.013 (1.001-1.035) Urine Protein Trace H (Negative) Urine Glucose (UA) Negative (Negative) Urine Ketones 1+ H (Negative) Urine Blood Negative (Negative) Urine Nitrite Negative (Negative) Urine Bilirubin Negative (Negative) Urine Urobilinogen <2.0 (<2.0) mg/dL Ur Leukocyte Esterase Moderate H (Negative) Urine RBC 3 (0-5) /hpf Urine WBC 15 H (0-5) /hpf Ur Squamous Epith Cells 17 H (0-4) /hpf Amorphous Sediment Rare H (None) /hpf Urine Bacteria Many H (None) /hpf Urine Mucus Few H (None) /hpf Urine HCG, Qual Not Detected (Not Detectd) 03/16/21 03/16/21 Range/Units 17:04 17:04 WBC (3.8-10.6) k/uL RBC (3.80-5.40) m/uL Hgb (11.4-16.0) gm/dL Hct (34.0-46.0) % MCV (80.0-100.0) fL MCH (25.0-35.0) pg MCHC (31.0-37.0) g/dL RDW (11.5-15.5) % Plt Count (150-450) k/uL MPV Neutrophils % % Lymphocytes % % Monocytes % % Eosinophils % % Basophils % % Neutrophils # (1.3-7.7) k/uL Lymphocytes # (1.0-4.8) k/uL Monocytes # (0-1.0) k/uL Eosinophils # (0-0.7) k/uL Basophils # (0-0.2) k/uL Sodium 141 (137-145) mmol/L Potassium 2.8 L (3.5-5.1) mmol/L Chloride 114 H (98-107) mmol/L Carbon Dioxide 17 L (22-30) mmol/L Anion Gap 10 mmol/L BUN 2 L (7-17) mg/dL Creatinine 0.34 L (0.52-1.04) mg/dL Est GFR (CKD-EPI)AfAm >90 (>60 ml/min/1.73 sqM) Est GFR (CKD-EPI)NonAf >90 (>60 ml/min/1.73 sqM) Glucose 102 H (74-99) mg/dL Plasma Lactic Acid Aurelio 0.8 (0.7-2.0) mmol/L Calcium 7.1 L (8.4-10.2) mg/dL Total Bilirubin 0.2 (0.2-1.3) mg/dL AST 18 (14-36) U/L ALT 11 (4-34) U/L Alkaline Phosphatase 42 (38-126) U/L Total Protein 5.1 L (6.3-8.2) g/dL Albumin 2.4 L (3.5-5.0) g/dL Amylase 50 (30-110) U/L Lipase 1288 H (23-300) U/L Urine Color Urine Appearance (Clear) Urine pH (5.0-8.0) Ur Specific [place] (1.001-1.035) Urine Protein (Negative) Urine Glucose (UA) (Negative) Urine Ketones (Negative) Urine Blood (Negative) Urine Nitrite (Negative) Urine Bilirubin (Negative) Urine Urobilinogen (<2.0) mg/dL Ur Leukocyte Esterase (Negative) Urine RBC (0-5) /hpf Urine WBC (0-5) /hpf Ur Squamous Epith Cells (0-4) /hpf Amorphous Sediment (None) /hpf Urine Bacteria (None) /hpf Urine Mucus (None) /hpf Urine HCG, Qual (Not Detectd) Disposition Clinical Impression: Pancreatitis, Hypokalemia Disposition: ADMITTED IP TO THIS [facility] Decision Date: 03/16/21 Decision Time: 18:39
--- NOTE | 2021-03-16 16:37 | XR ---
EXAMINATION TYPE: XR KUB DATE OF EXAM: 03/16/2021 4:26 PM CLINICAL HISTORY: Abdominal pain. Nausea and vomiting. TECHNIQUE: Upright images of the abdomen and pelvis were obtained COMPARISON: 01/08/2021. FINDINGS: Nonspecific bowel gas pattern. There is no visceromegaly, pneumoperitoneum, or abnormal cherelle cification appreciated. The lung bases are clear. The osseous structures are intact. IMPRESSION: Nonspecific bowel gas pattern.
[2021-03-16] MEDS ORDERED: KETOROLAC 30 MG/ML 1 ML VIAL IVP STA (16:47)
[2021-03-16 16:54] LABS: Amorphous Sediment,Urine Rare /hpf; Appearance,Urine Cloudy (Clear); Bacteria,Urine Many /hpf; Bilirubin,Urine Negative (Negative); Blood,Urine Negative (Negative); Color,Urine Yellow; Glucose,Urine (UA) Negative (Negative); Ketones,Urine 1+ (Negative); Leukocyte Esterase,Urine Moderate (Negative); Mucus,Urine Few /hpf; Nitrite,Urine Negative (Negative); PH, Urine 7.5 (5.0-8.0); Protein,Urine Trace (Negative); RBC,Urine 3 /hpf (0-5); Specific Gravity,Urine 1.013 (1.001-1.035); Squamous Epithelial Cell,Urine 17 /hpf (0-4); Urobilinogen,Urine <2.0 mg/dL (<2.0); WBC,Urine 15 /hpf (0-5)
[2021-03-16 17:06] LABS: Basophils % (A) 0 %; Eosinophils # (A) 0.2 k/uL (0-0.7); Eosinophils % (A) 3 %; HCT 36.4 % (34.0-46.0); HGB 12.2 gm/dL (11.4-16.0); Lymphocytes # (A) 1.7 k/uL (1.0-4.8); Lymphocytes % (A) 22 %; MCH 29.4 pg (25.0-35.0); MCHC 33.6 g/dL (31.0-37.0); MCV 87.5 fL (80.0-100.0); Mean Platelet Volume 10.8; Monocytes # (A) 0.5 k/uL (0-1.0); Monocytes % (A) 7 %; Neutrophils # (A) 4.9 k/uL (1.3-7.7); Neutrophils % (A) 66 %; Platelet Count 220 k/uL (150-450); RBC 4.16 m/uL (3.80-5.40); RDW 13.6 % (11.5-15.5); WBC 7.4 k/uL (3.8-10.6)
[2021-03-16 17:34] LABS: ALT 11 U/L (4-34); AST 18 U/L (14-36); African American GFR (CKD) >90 (>60 ml/min/1.73 sqM); Albumin 2.4 g/dL (3.5-5.0); Alkaline Phosphatase 42 U/L (38-126); Amylase 50 U/L (30-110); Anion Gap 10 mmol/L; Blood Urea Nitrogen 2 mg/dL (7-17); Calcium 7.1 mg/dL (8.4-10.2); Carbon Dioxide 17 mmol/L (22-30); Chloride 114 mmol/L (98-107); Glucose 102 mg/dL (74-99); Lipase 1288 U/L (23-300); Non-African American GFR(CKD) >90 (>60 ml/min/1.73 sqM); Potassium 2.8 mmol/L (3.5-5.1); Sodium 141 mmol/L (137-145); Total Bilirubin 0.2 mg/dL (0.2-1.3); Total Protein 5.1 g/dL (6.3-8.2)
[2021-03-16] MEDS ORDERED: CIPROFLOXACIN HCL 500 MG TAB PO STA (17:43)
[2021-03-16] MEDS ORDERED: POTASSIUM CHLORIDE ER 20 MEQ TAB.ER PO STA (17:44)
--- NOTE | 2021-03-16 17:59 | US ---
EXAMINATION TYPE: US gallbladder DATE OF EXAM: 03/16/2021 COMPARISON: NONE CLINICAL HISTORY: ruq pain. Abdominal pain, vomiting, nausea for 3 weeks EXAM MEASUREMENTS: Liver Length: 15.5 cm Gallbladder Wall: 0.2 cm CBD: 0.3 cm Right Kidney: 10.7 x 4.7 x 5.0 cm Pancreas: Obscured by bowel gas Liver: Echogenic. Poor posterior beam penetration. Gallbladder: Normal. Ecclesiastical Worker reports negative sonographic Velasquez sign. CBD: Normal. Right Kidney: No hydronephrosis. IMPRESSION: 1. Normal gallbladder. 2. Fatty liver.
[2021-03-16] MEDS ORDERED: PANTOPRAZOLE 40 MG/10 ML VIAL IVP STA (18:02)
[2021-03-16] MEDS ORDERED: ONDANSETRON 4 MG/2 ML VIAL IVP PRN (18:03)
[2021-03-16] MEDS ORDERED: NALOXONE 0.4 MG/ML 1 ML VIAL IV PRN (18:03)
[2021-03-16] MEDS ORDERED: KETOROLAC 15 MG/ML 1 ML VIAL IVP PRN (18:03)
[2021-03-16] MEDS ORDERED: 0.9% NACL WITH KCL 20 MEQ/L 1,000 ML IV SCH (18:15)
[2021-03-16] MEDS: POTASSIUM CHLORIDE 10 MEQ in WATER FOR INJECTION 1 100ML.BAG IVPB SCH ×3 (19:18→22:23)
[2021-03-16] MEDS ORDERED: HYDROmorphone 1 MG/ML 1 ML SYRINGE IVP STA (20:00)
[2021-03-16] MEDS: MAGNESIUM SULFATE-D5W PMX 1 GM in DEXTROSE/WATER 1 100ML.BAG IVPB SCH ×2 (20:07→22:48)
[2021-03-16] MEDS ORDERED: traZODone HCL 100 MG TAB PO SCH (21:00)
[2021-03-16] MEDS ORDERED: QUEtiapine 100 MG TAB PO SCH (21:00)
[2021-03-16] MEDS ORDERED: ESCITALOPRAM 10 MG TAB PO SCH (21:00)
[2021-03-16] MEDS: TOPIRAMATE 100 MG TAB PO SCH (22:26)
[2021-03-16] MEDS: MAGNESIUM OXIDE 400 MG TAB PO SCH (22:26)
[2021-03-16] MEDS: HYDROmorphone 0.5 MG/0.5 ML SYRINGE IVP PRN (22:28)
[2021-03-16] MEDS: PROPRANOLOL 10 MG TAB PO SCH (23:28)
[2021-03-17 01:55] LABS: Magnesium 2.6 mg/dL (1.6-2.3)
[2021-03-17 01:59] LABS: Potassium 5.3 mmol/L (3.5-5.1)
[2021-03-17] MEDS: POTASSIUM CHLORIDE 10 MEQ in WATER FOR INJECTION 1 100ML.BAG IVPB SCH ×5 (03:50→08:39)
[2021-03-17] MEDS: MAGNESIUM SULFATE-D5W PMX 1 GM in DEXTROSE/WATER 1 100ML.BAG IVPB SCH ×2 (03:51→03:53)
[2021-03-17 05:34] LABS: Magnesium 2.3 mg/dL (1.6-2.3); Potassium 4.6 mmol/L (3.5-5.1)
[2021-03-17 08:43] VITALS: BP 99/69; PULSE 97; RESP 18; TEMP 98.3
[2021-03-17] MEDS: PROPRANOLOL 10 MG TAB PO SCH (08:56)
[2021-03-17] MEDS: TOPIRAMATE 100 MG TAB PO SCH (08:56)
[2021-03-17] MEDS: MAGNESIUM OXIDE 400 MG TAB PO SCH (08:56)
[2021-03-17] MEDS: HYDROmorphone 0.5 MG/0.5 ML SYRINGE IVP PRN (08:57)
[2021-03-17] MEDS ORDERED: PANTOPRAZOLE 40 MG/10 ML VIAL IV SCH (09:00)
--- NOTE | 2021-03-17 10:49 | P.HPIM ---
History of Present Illness 30-year-old female came in to his apartment nausea vomiting and epigastric abdominal pain severe. Patient states she still has pain but although comfortably sleeping on the bed when I evaluated the patient. Patient had multiple episodes of hepatitis in the past etiology of this pancreatitis is not clear patient was evaluated by gastroneurology multiple times the past supposed to follow-up with [facility] gastroenterology. Denied vomiting able to tolerate liquid diet will advance to full liquid diet and patient will stay on liquid diet at home until seen by gastroenterology later this month. Patient lipase is around 1000. REVIEW OF SYSTEMS: CONSTITUTIONAL: No fever, no malaise, no fatigue. HEENT: No recent visual problems or hearing problems. Denied any sore throat. CARDIOVASCULAR: No chest pain, orthopnea, PND, no palpitations, no syncope. PULMONARY: No shortness of breath, no cough, no hemoptysis. GASTROINTESTINAL: As mentioned in HPI NEUROLOGICAL: No headaches, no weakness, no numbness. HEMATOLOGICAL: Denies any bleeding or petechiae. GENITOURINARY: Denies any burning micturition, frequency, or urgency. MUSCULOSKELETAL/RHEUMATOLOGICAL: Denies any joint pain, swelling, or any muscle pain. ENDOCRINE: Denies any polyuria or polydipsia. The rest of the 14-point review of systems is negative. PHYSICAL EXAMINATION: GENERAL: The patient is alert and oriented x3, not in any acute distress. Well developed, well nourished. HEENT: Pupils are round and equally reacting to light. EOMI. No scleral icterus. No conjunctival pallor. Normocephalic, atraumatic. No pharyngeal erythema. No thyromegaly. CARDIOVASCULAR: S1 and S2 present. No murmurs, rubs, or gallops. PULMONARY: Chest is clear to auscultation, no wheezing or crackles. ABDOMEN: Soft, tenderness in the epigastric area nondistended, normoactive bowel sounds. No palpable organomegaly. MUSCULOSKELETAL: No joint swelling or deformity. EXTREMITIES: No cyanosis, clubbing, or pedal edema. NEUROLOGICAL: Gross neurological examination did not reveal any focal deficits. SKIN: No rashes. Assessment and plan 1 acute pancreatitis multiple episodes in the past will need follow-up with gastroenterology. Patient is tolerating liquid diet will advance to full liquid diet and if she can tolerate that patient will be discharged later today. Patient is comfortable and was sleeping comfortably when I evaluated the patien t. -Asthma without any acute exacerbation -obesity -Bipolar disorder -History of migraines the past Past Medical History Past Medical History: Asthma, Diabetes Mellitus, GERD/Reflux Additional Past Medical History / Comment(s): migraines, degenerative disk disease, endometriosis, lupus, pancreatitis History of Any Multi-Drug Resistant Organisms: None Reported Past Surgical History: Orthopedic Surgery Additional Past Surgical History / Comment(s): laparoscopc surgery for endometriosis, cyst removed from left foot, EGD, Past Anesthesia/Blood Transfusion Reactions: Previous Problems w/ Anesthesia Additional Past Anesthesia/Blood Transfusion Reaction / Comment(s): hard to wake up for 48-72 hours after laparoscopic surgery-was in hosp. for 3 days Past Psychological History: Anxiety, Depression, PTSD Smoking Status: Vaper Past Alcohol Use History: None Reported Additional Past Alcohol Use History / Comment(s): pt states that she occasionally has a "glass or two" of vodka that she mixes with Mountain Dew. Past Drug Use History: Marijuana Additional Drug Use History / Comment(s): pt states that "I hit the vape constantly through the day." pt reports that she has a 100 mg vape pen that she refills 6 times per day. - Past Family History Mother Family Medical History: No Reported History Additional Family Medical History / Comment(s): hx migraines Father Family Medical History: Coronary Artery Disease (CAD), Hypertension Additional Family Medical History / Comment(s): ddd, alcoholism & drug use Medications and Allergies Home Medications Medication Instructions Recorded Confirmed Type Escitalopram [Lexapro] 10 mg PO HS 30 Days tab 02/10/21 03/16/21 Rx Melatonin 3 mg PO HS 30 Days tablet 02/10/21 03/16/21 Rx Propranolol [Inderal] 10 mg PO BID 30 Days tab 02/10/21 03/16/21 Rx QUEtiapine [SEROquel] 300 mg PO HS 30 Days tab 02/10/21 03/16/21 Rx traZODone HCL [Desyrel] 100 mg PO HS 30 Days tab 02/10/21 03/16/21 Rx Topiramate [Topamax] 100 mg PO BID 03/16/21 03/16/21 History Pantoprazole Sodium [Protonix] 40 mg PO DAILY #30 tab 03/17/21 Rx Allergies Allergy/AdvReac Type Severity Reaction Status Date / Time bee pollen Allergy Severe Anaphylaxis Verified 03/16/21 15:57 haloperidol [From Haldol] Allergy Severe QUIT Verified 03/16/21 15:57 BREATHING haloperidol lactate Allergy Severe QUIT Verified 03/16/21 15:57 [From Haldol] BREATHING latex Allergy Severe RASH-THROAT Verified 03/16/21 15:57 CLOSES tramadol Allergy Severe Nausea & Verified 03/16/21 15:57 Vomiting murrieta Allergy Anaphylaxis Verified 03/16/21 15:57 coconut Allergy Anaphylaxis Verified 03/16/21 15:57 pineapple Allergy Anaphylaxis Verified 03/16/21 15:57 prednisone Allergy THROAT Verified 03/16/21 15:57 SWELLS spider venom Allergy Swelling Verified 03/16/21 15:57 Sulfa (Sulfonamide Allergy THROAT Verified 03/16/21 15:57 Antibiotics) SWELLS venom-wasp Allergy Swelling Verified 03/16/21 15:57 venom-wasp protein Allergy Swelling Verified 03/16/21 15:57 promethazine HCl AdvReac Severe Nausea & Verified 03/16/21 15:57 [From Phenergan] Vomiting amoxicillin AdvReac Nausea & Verified 03/16/21 15:57 Vomiting ANTS Allergy Mild Anaphylaxis Uncoded 03/16/21 14:23 Physical Exam Vitals: Vital Signs Temp Pulse Pulse Resp BP BP Pulse Ox 03/17/21 08:42 98.3 F 97 18 99/69 96 03/17/21 04:30 97.9 F 99 16 117/87 97 03/16/21 22:30 98.1 F 84 16 126/89 93 L 03/16/21 14:21 99.0 F 117 H 18 146/102 97 Intake and Output 03/16/21 03/17/21 03/17/21 22:59 06:59 14:59 Other: Voiding Method Toilet Toilet Toilet # Voids 1 Weight 104.326 kg Results CBC & Chem 7: 03/16/21 15:41 03/17/21 04:32 Labs: Abnormal Lab Results - Last 24 Hours (Table) 03/16/21 03/16/21 03/16/21 Range/Units 16:15 17:04 17:04 Potassium 2.8 L (3.5-5.1) mmol/L Chloride 114 H (98-107) mmol/L Carbon Dioxide 17 L (22-30) mmol/L BUN 2 L (7-17) mg/dL Creatinine 0.34 L (0.52-1.04) mg/dL Glucose 102 H (74-99) mg/dL Calcium 7.1 L (8.4-10.2) mg/dL Magnesium <0.4 L* (1.6-2.3) mg/dL Total Protein 5.1 L (6.3-8.2) g/dL Albumin 2.4 L (3.5-5.0) g/dL Lipase 1288 H (23-300) U/L Urine Appearance Cloudy H (Clear) Urine Protein Trace H (Negative) Urine Ketones 1+ H (Negative) Ur Leukocyte Esterase Moderate H (Negative) Urine WBC 15 H (0-5) /hpf Ur Squamous Epith Cells 17 H (0-4) /hpf Amorphous Sediment Rare H (None) /hpf Urine Bacteria Many H (None) /hpf Urine Mucus Few H (None) /hpf 03/17/21 03/17/21 Range/Units 00:53 04:32 Potassium 5.3 H (3.5-5.1) mmol/L Chloride (98-107) mmol/L Carbon Dioxide (22-30) mmol/L BUN (7-17) mg/dL Creatinine (0.52-1.04) mg/dL Glucose (74-99) mg/dL Calcium (8.4-10.2) mg/dL Magnesium 2.6 H (1.6-2.3) mg/dL Total Protein (6.3-8.2) g/dL Albumin (3.5-5.0) g/dL Lipase 1011 H (23-300) U/L Urine Appearance (Clear) Urine Protein (Negative) Urine Ketones (Negative) Ur Leukocyte Esterase (Negative) Urine WBC (0-5) /hpf Ur Squamous Epith Cells (0-4) /hpf Amorphous Sediment (None) /hpf Urine Bacteria (None) /hpf Urine Mucus (None) /hpf Microbiology - Last 24 Hours (Table) 03/16/21 16:15 Urine Culture - Preliminary Urine,Voided Thrombosis Risk Factor Assmnt - Choose All That Apply Any of the Below Risk Factors Present?: No
--- NOTE | 2021-03-17 10:49 | P.DS ---
Providers Date of admission: 03/16/21 18:03 Attending physician: Teo Leblanc Primary care physician: Sugey Yarbrough [facility] Course: Refer to history of present illness for further details Plan - Discharge Summary New Discharge Prescriptions: New Pantoprazole Sodium [Protonix] 40 mg PO DAILY #30 tab Discontinued Diclofenac Sodium [Voltaren] 75 mg PO BID Pantoprazole [Protonix] 40 mg PO DAILY No Action traZODone HCL [Desyrel] 100 mg PO HS 30 Days tab Escitalopram [Lexapro] 10 mg PO HS 30 Days tab Melatonin 3 mg PO HS 30 Days tablet QUEtiapine [SEROquel] 300 mg PO HS 30 Days tab Propranolol [Inderal] 10 mg PO BID 30 Days tab Topiramate [Topamax] 100 mg PO BID Discharge Medication List Escitalopram [Lexapro] 10 mg PO HS 30 Days tab 02/10/21 [Rx] Melatonin 3 mg PO HS 30 Days tablet 02/10/21 [Rx] Propranolol [Inderal] 10 mg PO BID 30 Days tab 02/10/21 [Rx] QUEtiapine [SEROquel] 300 mg PO HS 30 Days tab 02/10/21 [Rx] traZODone HCL [Desyrel] 100 mg PO HS 30 Days tab 02/10/21 [Rx] Topiramate [Topamax] 100 mg PO BID 03/16/21 [History] Pantoprazole Sodium [Protonix] 40 mg PO DAILY #30 tab 03/17/21 [Rx] Follow up Appointment(s)/Referral(s): Jorje Mayes MD [Primary Care Provider] - 3 Days Katarzyna Bocanegra MD [STAFF PHYSICIAN] - 1 Week Discharge Disposition: HOME SELF-CARE
== END 2021-03-17 11:11 | disposition home or self-care (01) ==
LOC: EC 14:03 → 6NMEDSUR 18:03
PROVIDERS: ADMIT Hospitalist; ATTEND Hospitalist
DX: K85.90 Acute pancreatitis without necrosis or infection, unspecified (principal); J45.909 Unspecified asthma, uncomplicated; E66.9 Obesity, unspecified; Z68.39 Body mass index [BMI] 39.0-39.9, adult; F31.9 Bipolar disorder, unspecified; G43.909 Migraine, unspecified, not intractable, without status migrainosus; E87.6 Hypokalemia; E11.9 Type 2 diabetes mellitus without complications; K21.9 Gastro-esophageal reflux disease without esophagitis; F43.10 Post-traumatic stress disorder, unspecified; R19.7 Diarrhea, unspecified; Z20.822 Contact with and (suspected) exposure to COVID-19; Z87.891 Personal history of nicotine dependence; Z79.899 Other long term (current) drug therapy; Z91.030 Bee allergy status; Z91.040 Latex allergy status; Z88.5 Allergy status to narcotic agent; Z88.0 Allergy status to penicillin; Z88.2 Allergy status to sulfonamides; Z88.8 Allergy status to other drugs, medicaments and biological substances; Z91.018 Allergy to other foods; Z91.048 Other nonmedicinal substance allergy status; Z82.49 Family history of ischemic heart disease and other diseases of the circulatory system; Z81.1 Family history of alcohol abuse and dependence; Z82.69 Family history of other diseases of the musculoskeletal system and connective tissue; Z82.0 Family history of epilepsy and other diseases of the nervous system
CPT/HCPCS: 96376 ×2; 96366 ×2; 96361; 96365; 96367; 96375; 99285; 36415; 93005; 80051; 80053; 82150; 83605; 83690 ×2; 83735 ×2; 84132; 85025; 81001; 81025; 87086; 87635; 74018; 76705; G0378 ×2; J2765; J2405; J1885 ×2; J1170 ×3; J3475; J3480; C9113 ×2

== ENCOUNTER 2021-03-26 07:00 | Inpatient (IN) | payer OTHER ==
[2021-03-26] MEDS ORDERED: oxyCODONE-APAP 10-325MG 1 EACH TAB PO STA (07:28)
[2021-03-26] MEDS ORDERED: SODIUM CHLORIDE 0.9% 1,000 ML IV STA ×2 (07:28→09:12)
--- NOTE | 2021-03-26 07:32 | ED ---
Abdominal Pain HPI - General Chief Complaint: Abdominal Pain Stated Complaint: Abdominal pain Time Seen by Provider: 03/26/21 07:09 Source: patient Mode of arrival: ambulatory Limitations: no limitations - History of Present Illness Initial Comments: Dictation was produced using [employer] dictation software. please excuse any grammatical, word or spelling errors. Chief Complaint: 30-year-old female presents with epigastric abdominal pain History of Present Illness: Patient is a 30-year-old female presents to the emergency Department with gastric abdominal pain. Patient states she's had on and off symptoms for the last 4-5 weeks. She states that she was diagnosed with pancreatic cyst on the computed tomography scan several weeks ago. States that she has epigastric pain nonradiating. No fevers. Patient is not exacerbated wi th oral intake. No diarrhea. No fevers. Patient is well-known to emergency department for multiple visitations for myriad of complaints. She was recently admitted to the hospital 9 days ago. The ROS documented in this emergency department record has been reviewed and confirmed by me. Those systems with pertinent positive or negative responses have been documented in the HPI. All other systems are other negative and/or noncontributory. PHYSICAL EXAM: General Impression: Alert and oriented x3, not in acute distress HEENT: Normocephalic atraumatic, extra-ocular movements intact, pupils equal and reactive to light bilaterally, mucous membranes moist. Cardiovascular: Heart regular rate and rhythm Chest: Able to complete full sentences, no retractions, no tachypnea Abdomen: abdomen soft, tenderness to the epigastric area, negative Velasquez sign, no pain at McBurney's point, non-distended, no organomegaly Musculoskeletal: Pulses present and equal in all extremities, no peripheral kristi a Motor: no focal deficits noted Neurological: CN II-XII grossly intact, no focal motor or sensory deficits noted Skin: Intact with no visualized rashes Psych: Tearful ED course: 30-year-old female presents to the emergency department for epigastric abdominal pain. She states her symptoms are on and off. Vital signs upon arrival shows heart rate of 137, rest of vital signs within acceptable li mits. Patient is well-known to emergency department. Since January 10 this is patient's 18th visit. Patient's recent CT from January 25 did not show any abdominal abnormalities. Patient had a gallbladder ultrasound performed 10 days ago which was normal. EKG interpretation: Ventricular rate 113, sinus tachycardia, NH interval 1:30, QRS 80, QTC 455. No NH prolongation, no QTC prolongation, no ST or T-wave changes noted. EKG compared to 03/16/2021 showing no changes. Overall, this EKG is unremarkable Laboratory evaluation obtained. CBC [place]. Metabolic panel was within acce ptable limits. Lipase is 1279. Urinalysis shows 77 white blood cells however it is contaminated. Pending urine cultures. Abdominal X-ray unremarkable. Patient reevaluated bedside still ends mild distress. Clinical presentation consistent with pancreatitis. EMR is now working in. Shows that patient was recently admitted to the hospital 9 days ago for pancreatitis as well. Patient will be admitted again for the same. - Related Data Home Medications Medication Instructions Recorded Confirmed Topiramate [Topamax] 100 mg PO BID 03/16/21 03/16/21 Previous Rx's Medication Instructions Recorded Escitalopram [Lexapro] 10 mg PO HS 30 Days tab 02/10/21 Melatonin 3 mg PO HS 30 Days tablet 02/10/21 Propranolol [Inderal] 10 mg PO BID 30 Days tab 02/10/21 QUEtiapine [SEROquel] 300 mg PO HS 30 Days tab 02/10/21 traZODone HCL [Desyrel] 100 mg PO HS 30 Days tab 02/10/21 Pantoprazole Sodium [Protonix] 40 mg PO DAILY #30 tab 03/17/21 Allergies Allergy/AdvReac Type Severity Reaction Status Date / Time bee pollen Allergy Severe Anaphylaxis Verified 03/26/21 07:08 haloperidol [From Haldol] Allergy Severe QUIT Verified 03/26/21 07:08 BREATHING haloperidol lactate Allergy Severe QUIT Verified 03/26/21 07:08 [From Haldol] BREATHING latex Allergy Severe RASH-THROAT Verified 03/26/21 07:08 CLOSES tramadol Allergy Severe Nausea & Verified 03/26/21 07:08 Vomiting murrieta Allergy Anaphylaxis Verified 03/26/21 07:08 coconut Allergy Anaphylaxis Verified 03/26/21 07:08 pineapple Allergy Anaphylaxis Verified 03/26/21 07:08 prednisone Allergy THROAT Verified 03/26/21 07:08 SWELLS spider venom Allergy Swelling Verified 03/26/21 07:08 Sulfa (Sulfonamide Allergy THROAT Verified 03/26/21 07:08 Antibiotics) SWELLS venom-wasp Allergy Swelling Verified 03/26/21 07:08 venom-wasp protein Allergy Swelling Verified 03/26/21 07:08 promethazine HCl AdvReac Severe Nausea & Verified 03/26/21 07:08 [From Phenergan] Vomiting amoxicillin AdvReac Nausea & Verified 03/26/21 07:08 Vomiting ANTS Allergy Mild Anaphylaxis Uncoded 03/26/21 07:08 Review of Systems ROS Statement: Those systems with pertinent positive or pertinent negative responses have been documented in the HPI. ROS Other: All systems not noted in ROS Statement are negative. Past Medical History Past Medical History: Asthma, Diabetes Mellitus, GERD/Reflux Additional Past Medical History / Comment(s): migraines, degenerative disk disease, endometriosis, lupus, pancreatitis History of Any Multi-Drug Resistant Organisms: None Reported Past Surgical History: Orthopedic Surgery Additional Past Surgical History / Comment(s): laparoscopc surgery for endometriosis, cyst removed from left foot, EGD, Past Anesthesia/Blood Transfusion Reactions: Previous Problems w/ Anesthesia Additional Past Anesthesia/Blood Transfusion Reaction / Comment(s): hard to wake up for 48-72 hours after laparoscopic surgery-was in hosp. for 3 days Past Psychological History: Anxiety, Depression, PTSD Smoking Status: Vaper Past Alcohol Use History: None Reported Past Drug Use History: Marijuana - Past Family History Mother Family Medical History: No Reported History Additional Family Medical History / Comment(s): hx migraines Father Family Medical History: Coronary Artery Disease (CAD), Hypertension Additional Family Medical History / Comment(s): ddd, alcoholism & drug use General Exam Limitations: no limitations Course Vital Signs 03/26/21 07:03 Temperature 98.1 F Pulse Rate 137 H Respiratory 18 Rate Blood Pressure 141/86 O2 Sat by Pulse 97 Oximetry Medical Decision Making - Lab Data Result diagrams: 03/26/21 08:05 03/26/21 08:05 Lab Results 03/26/21 03/26/21 03/26/21 Range/Units 07:28 07:28 08:05 WBC 4.7 (3.8-10.6) k/uL RBC 4.20 (3.80-5.40) m/uL Hgb 12.6 (11.4-16.0) gm/dL Hct 38.7 (34.0-46.0) % MCV 92.2 (80.0-100.0) fL MCH 30.1 (25.0-35.0) pg MCHC 32.6 (31.0-37.0) g/dL RDW 15.1 (11.5-15.5) % Plt Count 233 (150-450) k/uL MPV 8.0 Neutrophils % 62 % Lymphocytes % 27 % Monocytes % 5 % Eosinophils % 4 % Basophils % 1 % Neutrophils # 2.9 (1.3-7.7) k/uL Lymphocytes # 1.3 (1.0-4.8) k/uL Monocytes # 0.3 (0-1.0) k/uL Eosinophils # 0.2 (0-0.7) k/uL Basophils # 0.0 (0-0.2) k/uL Sodium (137-145) mmol/L Potassium (3.5-5.1) mmol/L Chloride (98-107) mmol/L Carbon Dioxide (22-30) mmol/L Anion Gap mmol/L BUN (7-17) mg/dL Creatinine (0.52-1.04) mg/dL Est GFR (CKD-EPI)AfAm (>60 ml/min/1.73 sqM) Est GFR (CKD-EPI)NonAf (>60 ml/min/1.73 sqM) Glucose (74-99) mg/dL Calcium (8.4-10.2) mg/dL Total Bilirubin (0.2-1.3) mg/dL AST (14-36) U/L ALT (4-34) U/L Alkaline Phosphatase (38-126) U/L Total Protein (6.3-8.2) g/dL Albumin (3.5-5.0) g/dL Lipase (23-300) U/L Urine Color Yellow Urine Appearance Turbid H (Clear) Urine pH 6.0 (5.0-8.0) Ur Specific [place] 1.029 (1.001-1.035) Urine Protein 1+ H (Negative) Urine Glucose (UA) Negative (Negative) Urine Ketones Negative (Negative) Urine Blood Negative (Negative) Urine Nitrite Negative (Negative) Urine Bilirubin Negative (Negative) Urine Urobilinogen 3.0 (<2.0) mg/dL Ur Leukocyte Esterase Large H (Negative) Urine RBC 5 (0-5) /hpf Urine WBC 77 H (0-5) /hpf Ur Squamous Epith Cells 33 H (0-4) /hpf Calcium Oxalate Crystal Few H (None) /hpf Urine Bacteria Many H (None) /hpf Hyaline Casts 8 H (0-2) /lpf Urine Mucus Many H (None) /hpf Urine HCG, Qual Not Detected (Not Detectd) 03/26/21 Range/Units 08:05 WBC (3.8-10.6) k/uL RBC (3.80-5.40) m/uL Hgb (11.4-16.0) gm/dL Hct (34.0-46.0) % MCV (80.0-100.0) fL MCH (25.0-35.0) pg MCHC (31.0-37.0) g/dL RDW (11.5-15.5) % Plt Count (150-450) k/uL MPV Neutrophils % % Lymphocytes % % Monocytes % % Eosinophils % % Basophils % % Neutrophils # (1.3-7.7) k/uL Lymphocytes # (1.0-4.8) k/uL Monocytes # (0-1.0) k/uL Eosinophils # (0-0.7) k/uL Basophils # (0-0.2) k/uL Sodium 137 (137-145) mmol/L Potassium 3.7 (3.5-5.1) mmol/L Chloride 106 (98-107) mmol/L Carbon Dioxide 23 (22-30) mmol/L Anion Gap 8 mmol/L BUN <2 L (7-17) mg/dL Creatinine 0.77 (0.52-1.04) mg/dL Est GFR (CKD-EPI)AfAm >90 (>60 ml/min/1.73 sqM) Est GFR (CKD-EPI)NonAf >90 (>60 ml/min/1.73 sqM) Glucose 184 H (74-99) mg/dL Calcium 10.2 (8.4-10.2) mg/dL Total Bilirubin 0.5 (0.2-1.3) mg/dL AST 32 (14-36) U/L ALT 57 H (4-34) U/L Alkaline Phosphatase 86 (38-126) U/L Total Protein 6.6 (6.3-8.2) g/dL Albumin 3.2 L (3.5-5.0) g/dL Lipase 1279 H (23-300) U/L Urine Color Urine Appearance (Clear) Urine pH (5.0-8.0) Ur Specific [place] (1.001-1.035) Urine Protein (Negative) Urine Glucose (UA) (Negative) Urine Ketones (Negative) Urine Blood (Negative) Urine Nitrite (Negative) Urine Bilirubin (Negative) Urine Urobilinogen (<2.0) mg/dL Ur Leukocyte Esterase (Negative) Urine RBC (0-5) /hpf Urine WBC (0-5) /hpf Ur Squamous Epith Cells (0-4) /hpf Calcium Oxalate Crystal (None) /hpf Urine Bacteria (None) /hpf Hyaline Casts (0-2) /lpf Urine Mucus (None) /hpf Urine HCG, Qual (Not Detectd) Disposition Clinical Impression: Pancreatitis Disposition: ADMITTED IP TO THIS [facility] Condition: Fair Referrals: Jorje Mayes MD [Primary Care Provider] - 1-2 days
[2021-03-26 08:19] LABS: Appearance,Urine Turbid (Clear); Bacteria,Urine Many /hpf; Bilirubin,Urine Negative (Negative); Blood,Urine Negative (Negative); Calcium Oxalate Crystals,Urine Few /hpf; Color,Urine Yellow; Glucose,Urine (UA) Negative (Negative); Hyaline Casts,Urine 8 /lpf (0-2); Ketones,Urine Negative (Negative); Leukocyte Esterase,Urine Large (Negative); Mucus,Urine Many /hpf; Nitrite,Urine Negative (Negative); Protein,Urine 1+ (Negative); RBC,Urine 5 /hpf (0-5); Specific Gravity,Urine 1.029 (1.001-1.035); Squamous Epithelial Cell,Urine 33 /hpf (0-4); WBC,Urine 77 /hpf (0-5)
[2021-03-26 08:24] LABS: Basophils % (A) 1 %; Eosinophils # (A) 0.2 k/uL (0-0.7); Eosinophils % (A) 4 %; HCT 38.7 % (34.0-46.0); HGB 12.6 gm/dL (11.4-16.0); Lymphocytes # (A) 1.3 k/uL (1.0-4.8); Lymphocytes % (A) 27 %; MCH 30.1 pg (25.0-35.0); MCHC 32.6 g/dL (31.0-37.0); MCV 92.2 fL (80.0-100.0); Monocytes # (A) 0.3 k/uL (0-1.0); Monocytes % (A) 5 %; Neutrophils # (A) 2.9 k/uL (1.3-7.7); Neutrophils % (A) 62 %; Platelet Count 233 k/uL (150-450); RDW 15.1 % (11.5-15.5); WBC 4.7 k/uL (3.8-10.6)
[2021-03-26 08:50] LABS: ALT 57 U/L (4-34); AST 32 U/L (14-36); African American GFR (CKD) >90 (>60 ml/min/1.73 sqM); Albumin 3.2 g/dL (3.5-5.0); Alkaline Phosphatase 86 U/L (38-126); Anion Gap 8 mmol/L; Blood Urea Nitrogen <2 mg/dL (7-17); Calcium 10.2 mg/dL (8.4-10.2); Carbon Dioxide 23 mmol/L (22-30); Chloride 106 mmol/L (98-107); Glucose 184 mg/dL (74-99); Lipase 1279 U/L (23-300); Non-African American GFR(CKD) >90 (>60 ml/min/1.73 sqM); Potassium 3.7 mmol/L (3.5-5.1); Sodium 137 mmol/L (137-145); Total Bilirubin 0.5 mg/dL (0.2-1.3); Total Protein 6.6 g/dL (6.3-8.2)
--- NOTE | 2021-03-26 08:53 | XR ---
EXAMINATION TYPE: XR abdomen acute w cxr DATE OF EXAM: 03/26/2021 CLINICAL HISTORY: Right-sided pain with nausea and vomiting. TECHNIQUE: Single frontal view of chest is obtained. Supine and upright views of the abdomen are acq uired. COMPARISON: Chest x-ray with acute abdominal series May 28, 2019 FINDINGS: The lungs remain grossly clear without pleural effusion or pneumothorax. Cardiac silhouet te size remain within normal limits. Osseous structures are intact. Some paucity of small bowel gas. Gas seen in nondistended small and large bowel loops. No pneumoperi toneum, visceromegaly, or suspicious calcification is identified. The osseous structures are intact. IMPRESSION: 1. No acute pulmonary process. 2. Overall nonspecific but likely nonobstructive bowel gas pattern. No significant change from prior.
[2021-03-26] MEDS ORDERED: NALOXONE 0.4 MG/ML 1 ML VIAL IV PRN (09:19)
[2021-03-26] MEDS ORDERED: ACETAMINOPHEN TAB 325 MG TAB PO PRN (09:19)
[2021-03-26] MEDS ORDERED: ALPRAZolam 0.25 MG TAB PO PRN (16:51)
[2021-03-26] MEDS ORDERED: TEMAZEPAM 15 MG CAP PO PRN (16:51)
[2021-03-26] MEDS: HYDROmorphone 0.5 MG/0.5 ML SYRINGE IVP PRN ×2 (17:14→22:42)
--- NOTE | 2021-03-26 17:26 | HP ---
HISTORY AND PHYSICAL DATE OF SERVICE: 03/26/2021. CHIEF COMPLAINT: Abdominal pain and pancreatitis. HISTORY OF PRESENT ILLNESS: This 30-year-old woman with a past medical history of recurrent pancreatitis, possibly secondary to high triglycerides, being followed Dr. Mayes in the outpatient setting, was recently admitted to [facility]. The patient improved significantly. Patient was discharged. But subsequently the patient was complaining of abdominal pain. The patient apparently had a pancreatic cyst, also. The patient had some nausea and the patient was admitted for further evaluation and treatment. The pain was radiating to the back, according to her. Initial labs showed a lipase of 127. Amylase was normal. The UA shows some turbidity and some UTI also. There is no history of any fever, rigor or chills at this time. PAST MEDICAL HISTORY: History of recurrent pancreatitis related to hyperlipidemia, history of asthma, diabetes mellitus, GERD, history of anxiety, depression, PTSD. HOME MEDICATIONS: Reviewed. They include Desyrel, Topamax, Seroquel, inderal, Protonix, hydrocodone, fenofibrate, Lexapro. Doses are reviewed. ALLERGIES: MULTIPLE ALLERGIES. BEE POLLEN, LATEX, DURAN COCONUT, PINEAPPLE, PREDNISONE, SPIDER VENOM, SULFA, ULTRAM, AMOXICILLIN, ANTS. FAMILY HISTORY: No history of heart disease or strokes in the family. History of migraine. SOCIAL HISTORY: History of vaping. History of THC. History of CBD REVIEW OF SYSTEMS: ENT: No diminished hearing. No diminished vision. CARDIOVASCULAR SYSTEM: No angina, palpitations. RESPIRATORY SYSTEM: No cough, hemoptysis. GI: As mentioned earlier. : No dysuria. NERVOUS SYSTEM: No numbness, weakness. ALLERGY/IMMUNOLOGY: No asthma or hay fever. MUSCULOSKELETAL: As mentioned earlier. HEMATOLOGY/ONCOLOGY: No history of anemia. ENDOCRINE: No history of diabetes or hypothyroidism. CONSTITUTIONAL: As mentioned earlier. DERMATOLOGY: Negative. RHEUMATOLOGY: Negative. PSYCHIATRY: As mentioned earlier. PHYSICAL EXAMINATION: Patient alert and oriented x3. Pulse 106, blood pressure 113/62, respiration 18, temperature 98.2, pulse ox 94% on room air. HEENT: Conjunctivae normal. NECK: No jugular venous distention. CARDIOVASCULAR: S1, S2 muffled. RESPIRATION: Breath sounds diminished at the bases. No rhonchi. No crackles. ABDOMEN: Soft. Mild diffuse tenderness. No guarding. No rigidity. No mass palpable. LEGS: No edema. No swelling. NERVOUS SYSTEM: Higher functions as mentioned earlier. Moves all 4 limbs. No focal motor or sensory deficit. LYMPHATICS: No lymph node palpable in neck, axillae or groin. SKIN: No ulcer, rash, bleeding. JOINTS: No active deforming arthropathy. LABS: CBC within normal limits and glucose 184, ALT is 57, lipase is ASSESSMENT: 1. Acute abdominal pain with acute on chronic pancreatitis. 2. Chronic recurrent pancreatitis. 3. Severe abdominal pain. 4. Possible acute urinary tract infection, present on admission. 5. Increased random blood glucose. 6. History of asthma. 7. Diabetes mellitus, type 2, history. 8. Gastroesophageal reflux disease. 9. History of migraines. 10.History of degenerative joint disease. 11.History of low back pain. 12.History of endometriosis and laparoscopic surgery. 13.History of anxiety, depression, posttraumatic stress disorder. 14.History of THC. 15.Obesity with body mass index of 39.5. 16.FULL CODE. RECOMMENDATIONS AND DISCUSSION: In this 30-year-old woman who presented with multiple complex medical issues, we will monitor the patient closely, continue symptomatic treatment. Proton pump inhibitors. A course of antibiotics for UTI. Obtain the cultures. Otherwise, I would also recommend gastroenterology consultation. Resume the home medications. Prognosis guarded because of multiple complex medical issues. Further recommendations to follow. Discussed with the patient. A copy of this dictation is being forwarded to Dr. Mayes, who is the primary physician. MMODL / IJN: [id number] / MTDD
[2021-03-26] MEDS: traZODone HCL 100 MG TAB PO SCH (20:54)
[2021-03-26] MEDS: PROPRANOLOL 10 MG TAB PO SCH (20:54)
[2021-03-26] MEDS: TOPIRAMATE 100 MG TAB PO SCH (20:54)
[2021-03-26] MEDS: FENOFIBRATE 160 MG TAB PO SCH (20:54)
[2021-03-26] MEDS: QUEtiapine 100 MG TAB PO SCH (20:54)
[2021-03-26] MEDS: HEPARIN SODIUM,PORCINE/PF 5,000 UNIT/0.5 ML SYRINGE SQ SCH (20:54)
[2021-03-26] MEDS: ESCITALOPRAM 10 MG TAB PO SCH (20:54)
[2021-03-26] MEDS: ONDANSETRON 4 MG/2 ML VIAL IVP PRN (20:55)
[2021-03-27] MEDS: HYDROmorphone 0.5 MG/0.5 ML SYRINGE IVP PRN ×3 (05:28→17:27)
[2021-03-27 06:16] LABS: Basophils % (A) 1 %; Eosinophils # (A) 0.2 k/uL (0-0.7); Eosinophils % (A) 5 %; HCT 35.1 % (34.0-46.0); HGB 11.3 gm/dL (11.4-16.0); Hypochromasia Moderate; Lymphocytes # (A) 1.6 k/uL (1.0-4.8); Lymphocytes % (A) 51 %; MCH 30.9 pg (25.0-35.0); MCHC 32.1 g/dL (31.0-37.0); MCV 96.4 fL (80.0-100.0); Monocytes # (A) 0.2 k/uL (0-1.0); Monocytes % (A) 5 %; Neutrophils # (A) 1.2 k/uL (1.3-7.7); Neutrophils % (A) 37 %; Platelet Count 187 k/uL (150-450); RBC 3.64 m/uL (3.80-5.40); RDW 15.3 % (11.5-15.5); WBC 3.2 k/uL (3.8-10.6)
--- NOTE | 2021-03-27 08:05 | P.CONS ---
History of Present Illness - Reason for Consult Consult date: 03/26/21 pancreatitis Requesting physician: Jarrell Avalos - Chief Complaint Abdominal pain - History of Present Illness This is a 30-year-old female who presented to the emergency department with complaints of abdominal pain. She has multiple medical comorbidities including diabetes mellitus, endometriosis, GERD, fatty liver disease, irritable bowel syndrome and posttraumatic stress disorder as well as personality disorder. Patient has a history of recurrent pancreatitis unknown etiology. First diagnosed approximately 3 years ago. Patient states symptoms began one month ago she's been to several hospitals including here earlier this month, [facility], [place] and now [facility]. She states the pain is in the epigastric to right upper quadrant area associated with nausea and vomiting. States she has not been able to eat. The patient was supposed to follow-up with [facility] for further workup and evaluation, however patient states she never went. In the past as part of her workup for abdominal pain she underwent EGD on 05/18/[address] Bocanegra showing mild antral gastritis with no evidence of esophagitis or peptic ulcer disease. Prior to that in 2017 she underwent a colonoscopy as well which was normal. She had seen Greta Juarez in the office several months ago. Burning to the patient she had a [facility] that showed that she had a possible pancreatic cyst. Here she had a acute abdomen x-ray that showed no acute pulmonary process overall nonspecific but likely nonobstructive bowel gas pattern. No significant change from prior. On admission WBC 4.7 hemoglobin 12.6 platelet count 15 total bilirubin 0.5 AST 32 ALT 57 alkaline phosphatase 86 amylase 45 and lipase 1279. She currently states the pain is improved with pain medication. She's having some nausea but no vomiting. She's been afebrile. This is states her mother just recently passed weight 2 weeks ago from panc reatic cancer in her 40s. Review of Systems REVIEW OF SYSTEMS: CARDIOPULMONARY: No chest pain or shortness of breath. Gastrointestinal: Right upper quadrant and epigastric pain associated with nausea vomiting. No hematemesis.eding, or melena. GENITOURINARY: No dysuria or hematuria. MUSCULOSKELETAL: Reports normal range of motion., Joint pain. SKIN: No rashes. No jaundice. ENDOCRINE: No chills, fevers. No excessive weight gain or loss. No polydipsia or polyuria. PSYCHIATRIC: Unremarkable. NEUROLOGY: No change in mental status. Denies dizziness, headache. ENT: Vision unremarkable. CONSTITUTIONAL: No recent weight loss. No fever, chills, night sweats. Past Medical History Past Medical History: Asthma, Diabetes Mellitus, GERD/Reflux Additional Past Medical History / Comment(s): migraines, degenerative disk disease, endometriosis, lupus, pancreatitis History of Any Multi-Drug Resistant Organisms: None Reported Past Surgical History: Orthopedic Surgery Additional Past Surgical History / Comment(s): laparoscopc surgery for endometriosis, cyst removed from left foot, EGD, Past Anesthesia/Blood Transfusion Reactions: Previous Problems w/ Anesthesia Additional Past Anesthesia/Blood Transfusion Reaction / Comm: hard to wake up for 48-72 hours after laparoscopic surgery-was in hosp. for 3 days Past Psychological History: Anxiety, Depression, PTSD Smoking Status: Vaper Past Alcohol Use History: None Reported Past Drug Use History: Marijuana - Past Family History Mother Family Medical History: No Reported History Additional Family Medical History / Comment(s): hx migraines Father Family Medical History: Coronary Artery Disease (CAD), Hypertension Additional Family Medical History / Comment(s): ddd, alcoholism & drug use Medications and Allergies Home Medications Medication Instructions Recorded Confirmed Type Escitalopram [Lexapro] 10 mg PO HS 30 Days tab 02/10/21 03/26/21 Rx Melatonin 3 mg PO HS 30 Days tablet 02/10/21 03/26/21 Rx Propranolol [Inderal] 10 mg PO BID 30 Days tab 02/10/21 03/26/21 Rx QUEtiapine [SEROquel] 300 mg PO HS 30 Days tab 02/10/21 03/26/21 Rx traZODone HCL [Desyrel] 100 mg PO HS 30 Days tab 02/10/21 03/26/21 Rx Topiramate [Topamax] 100 mg PO BID 03/16/21 03/26/21 History Pantoprazole Sodium [Protonix] 40 mg PO DAILY #30 tab 03/17/21 03/26/21 Rx Fenofibrate Nanocrystallized 145 mg PO HS 03/26/21 03/26/21 History [Fenofibrate] HYDROcodone/APAP 10-325MG [[place] 1 tab PO Q6HR PRN 03/26/21 03/26/21 History 10-325] Allergies Allergy/AdvReac Type Severity Reaction Status Date / Time bee pollen Allergy Severe Anaphylaxis Verified 03/26/21 09:26 haloperidol [From Haldol] Allergy Severe QUIT Verified 03/26/21 09:26 BREATHING haloperidol lactate Allergy Severe QUIT Verified 03/26/21 09:26 [From Haldol] BREATHING latex Allergy Severe RASH-THROAT Verified 03/26/21 09:26 CLOSES [place] Allergy Anaphylaxis Verified 03/26/21 09:26 coconut Allergy Anaphylaxis Verified 03/26/21 09:26 pineapple Allergy Anaphylaxis Verified 03/26/21 09:26 prednisone Allergy THROAT Verified 03/26/21 09:26 SWELLS spider venom Allergy Swelling Verified 03/26/21 09:26 Sulfa (Sulfonamide Allergy THROAT Verified 03/26/21 09:26 Antibiotics) SWELLS venom-wasp Allergy Swelling Verified 03/26/21 09:26 venom-wasp protein Allergy Swelling Verified 03/26/21 09:26 promethazine HCl AdvReac Severe Nausea & Verified 03/26/21 09:26 [From Phenergan] Vomiting tramadol AdvReac Severe Nausea & Verified 03/26/21 09:26 Vomiting amoxicillin AdvReac Nausea & Verified 03/26/21 09:26 Vomiting ANTS Allergy Mild Anaphylaxis Uncoded 03/26/21 09:26 Physical Exam Vitals: Vital Signs Temp Pulse Resp BP Pulse Ox 03/26/21 11:28 106 H 18 113/62 94 L 03/26/21 07:03 98.1 F 137 H 18 141/86 97 Intake and Output 03/25/21 03/26/21 03/26/21 22:59 06:59 14:59 Other: Weight 104.326 kg General appearance: The patient is alert, oriented, appears in no acute distress. HET: Head is normocephalic and atraumatic. Conjunctiva pink. Sclera anicteric. Neck: Supple without lymphadenopathy. Trachea midline. Heart: S1 S2. Regular rate and rhythm. Lungs: Clear to auscultation. Abdomen: Soft, epigastric tenderness, nondistended with bowel sounds. No guarding or rigidity. Skin: No rashes. No jaundice. Extremities: Normal skin color and turgor. No pedal edema. Neurological: No focal deficits. Alert and oriented x3. Results CBC & Chem 7: 03/27/21 06:01 03/26/21 08:05 Labs: Abnormal Lab Results - Last 24 Hours (Table) 03/26/21 03/26/21 Range/Units 07:28 08:05 BUN <2 L (7-17) mg/dL Glucose 184 H (74-99) mg/dL ALT 57 H (4-34) U/L Albumin 3.2 L (3.5-5.0) g/dL Lipase 1279 H (23-300) U/L Urine Appearance Turbid H (Clear) Urine Protein 1+ H (Negative) Ur Leukocyte Esterase Large H (Negative) Urine WBC 77 H (0-5) /hpf Ur Squamous Epith Cells 33 H (0-4) /hpf Calcium Oxalate Crystal Few H (None) /hpf Urine Bacteria Many H (None) /hpf Hyaline Casts 8 H (0-2) /lpf Urine Mucus Many H (None) /hpf Abdominal x-ray: report reviewed (No acute findings.) Assessment and Plan (1) Pancreatitis Narrative/Plan: 30-year-old female with a past medical history of recurrent pancreatitis unknown etiology likely idiopathic. She's had multiple workup in the past. She had been following with Greta juarez in the office and last saw her a few months ago. Patient denies going down to [facility] as recommended in the past. States she's been having abdominal pain for the last 1 month's duration and has been seen here in this hospital earlier this month as well as [facility] and [place]. On admission patient was noted to have a lipase of 1279 LFTs were unremarkable. She had an x-ray of the abdomen with no acute findings. Apparently patient had a CT of the abdomen done at [facility] for which records have been requested. She associates the abdominal pain with nausea and vomiting and states she's not been able to eat. However she does den y any weight loss. We'll continue to treat symptomatically with aggressive IV hydration, pain medications and keep on clear liquids for now. No further workup is warranted at this time. Patient had a recent ultrasound on 03/16/2021 with a normal gallbladder, fatty liver, no CBD dilation. Current Visit: Yes Status: Acute Code(s): K85.90 - ACUTE PANCREATITIS WITHOUT NECROSIS OR INFECTION, UNSP SNOMED Code(s): 06180974 (2) Abdominal pain Current Visit: No Status: Acute Code(s): R10.9 - UNSPECIFIED ABDOMINAL PAIN SNOMED Code(s): 35656750 Plan: 1. Continue symptomatic and supportive care 2. Aggressive IV hydration 3. Repeat lipase, CMP in the morning 4. Pain medications per primary medicine team 5. Requested CT abdomen records from [facility] 6. Reviewed recent gallbladder ultrasound done on 03/16/2021 with no acute findings 7. No plans on endoscopic evaluation Thank you for this consultation, we will continue to follow. Dr. Aldo Bocanegra I agree with the dictator's note, documented as a scribe by Roxana Torres.
[2021-03-27] MEDS: PROPRANOLOL 10 MG TAB PO SCH ×2 (08:43→19:51)
[2021-03-27] MEDS: TOPIRAMATE 100 MG TAB PO SCH ×2 (08:43→19:51)
[2021-03-27] MEDS: HEPARIN SODIUM,PORCINE/PF 5,000 UNIT/0.5 ML SYRINGE SQ SCH ×2 (08:43→19:50)
[2021-03-27] MEDS ORDERED: PANTOPRAZOLE 40 MG/10 ML VIAL IVP SCH (09:00)
[2021-03-27 10:35] LABS: African American GFR (CKD) 138.9 (60.0-200.0); Albumin 2.9 g/dL (3.8-4.9); Albumin/Globulin Ratio 1.18 (1.60-3.17); Anion Gap 9.1 mmol/L (10.00-18.00); BUN/Creat Ratio 3.36 Ratio (12.00-20.00); Blood Urea Nitrogen 2.2 mg/dL (9.0-27.0); Calcium 9.1 mg/dL (8.7-10.3); Carbon Dioxide 18.1 mmol/L (20.0-27.5); Globulin 2.4 g/dL (1.6-3.3); HDL Cholesterol 18.2 mg/dL (40.00-60.00); Non-African American GFR(CKD) 119.9 (60.0-200.0); Potassium 3.7 mmol/L (3.5-5.5); Total Bilirubin 0.3 mg/dL (0.30-1.20); Total Protein 5.3 g/dL (6.2-8.2)
[2021-03-27 10:55] LABS: Chol/HDL Ratio 6.81 Ratio; LDL Cholesterol,Direct Reflex 38.7 mg/dL (0.00-129.00)
[2021-03-27 13:24] VITALS: BMI 39.4
--- NOTE | 2021-03-27 15:54 | P.PN ---
Subjective Progress Note Date: 03/27/21 Principal diagnosis: Abdominal pain, pancreatitis Patient is seen as a follow-up for pancreatitis. She has a history of recurrent pancreatitis. Triglycerides were ordered and repeat triglycerides came back at 533 which is likely cause of acute pancreatitis. Patient is also supposed to follow-up with gastroenterology and have appointment down at [facility] however has not been compliant. Today she seen and evaluated states abdominal pain slightly better as well as nausea and vomiting. Objective - Vital Signs Vital signs: Vital Signs Temp 97.8 F 03/27/21 04:06 Pulse 82 03/27/21 08:42 Resp 18 03/27/21 04:06 BP 105/71 03/27/21 08:42 Pulse Ox 97 03/27/21 04:06 Intake & Output 03/26/21 03/27/21 03/27/21 18:59 06:59 18:59 Intake Total 1200 Balance 1200 Weight 104.326 kg Intake: Intake, IV Titration 1200 Amount Sodium Chloride 0.9% 1, 1200 000 ml @ 120 mls/hr IV . Q8H20M STA Rx#:[id number] Other: Voiding Method Toilet - Exam General appearance: The patient is alert, oriented, appears in no acute distress. HET: Head is normocephalic and atraumatic. Conjunctiva pink. Sclera anicteric. Neck: Supple without lymphadenopathy. Abdomen: Soft, diffuse tenderness, nondistended with bowel sounds. No guarding or rigidity. Extremities: Normal skin color and turgor. No pedal edema Skin: No rashes, no jaundice Neurological: No focal deficits. Alert and oriented -3. - Labs CBC & Chem 7: 03/27/21 06:01 03/27/21 06:01 Labs: Abnormal Lab Results - Last 24 Hours (Table) 03/27/21 03/27/21 Range/Units 06:01 06:01 WBC 3.2 L (3.8-10.6) k/uL RBC 3.64 L (3.80-5.40) m/uL Hgb 11.3 L (11.4-16.0) gm/dL Neutrophils # 1.2 L (1.3-7.7) k/uL Chloride 113 H (96-109) mmol/L Carbon Dioxide 18.1 L (20.0-27.5) mmol/L Anion Gap 9.10 L (10.00-18.00) mmol/L BUN 2.2 L (9.0-27.0) mg/dL BUN/Creatinine Ratio 3.36 L (12.00-20.00) Ratio Glucose 151 H (70-110) mg/dL Total Protein 5.3 L (6.2-8.2) g/dL Albumin 2.9 L (3.8-4.9) g/dL Albumin/Globulin Ratio 1.18 L (1.60-3.17) g/dL Triglycerides 530.00 H (0.00-149.00) mg/dL HDL Cholesterol 18.20 L (40.00-60.00) mg/dL Lipase 364 H (14-63) U/L Assessment and Plan (1) Pancreatitis Narrative/Plan: 30-year-old female with a past medical history of recurrent pancreatitis unknown etiology likely idiopathic. She's had multiple workup in the past. She had been following with Greta juarez in the office and last saw her a few months ago. Patient denies going down to [facility] as recommended in the past. States she's been having abdominal pain for the last 1 month's duration and has been seen here in this hospital earlier this month as well as [facility] and [place]. On admission patient was noted to have a lipase of 1279 LFTs were unremarkable. She had an x-ray of the abdomen with no acute findings. Apparently patient had a CT of the abdomen done at [facility] for which records have been requested. She associates the abdominal pain with nausea and vomiting and states she's not been able to eat. However she does deny any weight loss. We'll continue to treat symptomatically with aggressive IV hydration, pain medications and keep on clear liquids for now. No further workup is warranted at this time. Patient had a recent ultrasound on 03/16/2021 with a normal gallbladder, fatty liver, no CBD dilation. Pancreatitis likely secondary to hypertriglyceridemia. Recommend outpatient follow-up with pump and blower operator and PCP for management. Current Visit: Yes Status: Acute Code(s): K85.90 - ACUTE PANCREATITIS WITHOUT NECROSIS OR INFECTION, UNSP SNOMED Code(s): 47352751 (2) Abdominal pain Current Visit: No Status: Acute Code(s): R10.9 - UNSPECIFIED ABDOMINAL PAIN SNOMED Code(s): 15877736 (3) Hypertriglyceridemia Current Visit: Yes Status: Acute Code(s): E78.1 - PURE HYPERGLYCERIDEMIA SNOMED Code(s): 176567820 Plan: 1. Continue symptomatic and supportive care 2. Advance to full liquid diet 3. Repeat lipase, CMP in the morning 4. Pain medications per primary medicine team 5. Requested CT abdomen records from [facility] 6. Reviewed recent gallbladder ultrasound done on 03/16/2021 with no acute findings 7. No plans on endoscopic evaluation 8. Recommend outpatient follow-up with PCP and pump and blower operator to manage triglycerides Thank you for this consultation, we will continue to follow. Dr. Aldo Bocanegra I agree with the dictator's note, documented as a scribe by Roxana Torres.
--- NOTE | 2021-03-27 17:51 | PN ---
PROGRESS NOTE DATE OF SERVICE: 03/27/2021 CHIEF COMPLAINT: Abdominal pain. HISTORY OF PRESENT ILLNESS: This 30-year-old woman who was admitted with abdominal pain and possible acute pancreatitis is being closely monitored at this time. No chest pain. No palpitations. No fever. The patient has triglyceridemia. Triglycerides were found to be 530 and cholesterol is only 124. Lipase is improving at this time. No chest pain. No palpitations. No fever. PHYSICAL EXAMINATION: Alert and oriented x3. Pulse is 81, blood pressure 95/60, respirations 16, temperature 98 degrees, pulse ox 91% on room air. HEENT: Conjunctivae normal. NECK: No jugular venous distention. CARDIOVASCULAR: S1, S2 muffled. RESPIRATION: Breath sounds diminished at the bases. A few scattered rhonchi and crackles. ABDOMEN: Soft. Minimal diffuse discomfort in the epigastrium. No guarding. No rigidity. No mass palpable. LEGS: No edema. No swelling. NERVOUS SYSTEM: No focal deficit. LABS: WBC ntd hemoglobin other labs are noted. ASSESSMENT: 1. Acute abdominal pain with acute on chronic pancreatitis. 2. Chronic recurrent pancreatitis, possibly secondary to hypertriglyceridemia. 3. Severe abdominal pain with failure of outpatient treatment. 4. Possible acute urinary tract infection, present on admission. 5. Increased random glucose. 6. History of asthma. 7. Diabetes mellitus, type 2, history. 8. Gastroesophageal reflux disease. 9. History of migraines. 10.History of degenerative joint disease. 11.Low back pain. 12.History of endometriosis and laparoscopic surgery. 13.Anxiety, depression, posttraumatic stress disorder. 14.History of THC. 15.Obesity with body mass index of 39.5. 16.FULL CODE. RECOMMENDATIONS AND DISCUSSION: I recommend to continue current medications, continue with the monitoring, symptomatic treatment. Proton pump inhibitors. Symptomatic treatment of the pain. Prognosis guarded because of multiple complex medical issues. Further recommendations to follow. MMODL / IJN: [id number] / MTDD
[2021-03-27] MEDS: QUEtiapine 100 MG TAB PO SCH (19:50)
[2021-03-27] MEDS: HYDROcodone/APAP 5-325MG 1 EACH TAB PO PRN (19:50)
[2021-03-27] MEDS: ESCITALOPRAM 10 MG TAB PO SCH (19:51)
[2021-03-27] MEDS: traZODone HCL 100 MG TAB PO SCH (19:51)
[2021-03-27] MEDS: FENOFIBRATE 160 MG TAB PO SCH (19:51)
[2021-03-28] MEDS: HEPARIN SODIUM,PORCINE/PF 5,000 UNIT/0.5 ML SYRINGE SQ SCH ×2 (08:31→21:31)
[2021-03-28] MEDS: HYDROcodone/APAP 5-325MG 1 EACH TAB PO PRN ×4 (08:31→23:55)
[2021-03-28] MEDS: PROPRANOLOL 10 MG TAB PO SCH ×2 (08:33→21:31)
[2021-03-28] MEDS: TOPIRAMATE 100 MG TAB PO SCH ×2 (08:34→21:31)
[2021-03-28] MEDS: PANTOPRAZOLE 40 MG TABLET PO SCH (08:36)
[2021-03-28] MEDS ORDERED: cefTRIAXone 1,000 MG VIAL (IM USE) IM STA (11:23)
[2021-03-28 12:02] LABS: Anisocytosis Slight; Basophils % (A) 1 %; Eosinophils # (A) 0.1 k/uL (0-0.7); Eosinophils % (A) 3 %; HCT 38.5 % (34.0-46.0); HGB 12.5 gm/dL (11.4-16.0); Hypochromasia Slight; Lymphocytes # (A) 1.6 k/uL (1.0-4.8); Lymphocytes % (A) 43 %; MCH 30.6 pg (25.0-35.0); MCHC 32.4 g/dL (31.0-37.0); MCV 94.4 fL (80.0-100.0); Mean Platelet Volume 8.1; Monocytes # (A) 0.2 k/uL (0-1.0); Monocytes % (A) 4 %; Neutrophils # (A) 1.7 k/uL (1.3-7.7); Neutrophils % (A) 47 %; Platelet Count 201 k/uL (150-450); RBC 4.08 m/uL (3.80-5.40); RDW 16.3 % (11.5-15.5); WBC 3.6 k/uL (3.8-10.6)
[2021-03-28 12:18] LABS: ALT 29 U/L (4-34); AST 20 U/L (14-36); African American GFR (CKD) >90 (>60 ml/min/1.73 sqM); Albumin 3.1 g/dL (3.5-5.0); Alkaline Phosphatase 89 U/L (38-126); Amylase 48 U/L (30-110); Anion Gap 6 mmol/L; Blood Urea Nitrogen 4 mg/dL (7-17); Calcium 9.9 mg/dL (8.4-10.2); Carbon Dioxide 21 mmol/L (22-30); Chloride 110 mmol/L (98-107); Globulin 3.2 g/dL; Glucose 140 mg/dL (74-99); Non-African American GFR(CKD) >90 (>60 ml/min/1.73 sqM); Potassium 4.1 mmol/L (3.5-5.1); Sodium 137 mmol/L (137-145); Total Bilirubin 0.5 mg/dL (0.2-1.3); Total Protein 6.3 g/dL (6.3-8.2)
[2021-03-28 12:44] LABS: Lipase 2058 U/L (23-300)
[2021-03-28] MEDS: SODIUM CHLORIDE 0.9% 1,000 ML IV SCH (15:40)
[2021-03-28] MEDS: HYDROmorphone 0.5 MG/0.5 ML SYRINGE IVP PRN ×2 (15:41→21:50)
--- NOTE | 2021-03-28 16:02 | P.PN ---
Subjective Progress Note Date: 03/28/21 Principal diagnosis: Abdominal pain, pancreatitis Patient is seen as a follow-up for pancreatitis. She has a history of recurrent pancreatitis. Triglycerides were ordered and repeat triglycerides came back at 533 which is likely cause of acute pancreatitis. Patient is also supposed to follow-up with gastroenterology and have appointment down at [facility] however has not been compliant. Today she seen and evaluated states abdominal pain improved this morning and wanted to increase her diet. Diet was increased to a low-fat diet and this afternoon she states that she had increased abdominal pain. She had a repeat lipase yesterday which was 364 with a repeat this afternoon of 2057. LFTs remain normal. She is denying any vomiting but states she had a little nausea after eating. She's been afebrile. Objective - Vital Signs Vital signs: Vital Signs Temp 98.0 F 03/28/21 12:18 Pulse 72 03/28/21 12:18 Resp 17 03/28/21 12:18 BP 94/63 03/28/21 12:18 Pulse Ox 95 03/28/21 12:18 Intake & Output 03/27/21 03/28/21 03/28/21 18:59 06:59 18:59 Weight 104.326 kg 104.326 kg Other: Voiding Method Toilet # Voids 1 2 - Exam General appearance: The patient is alert, oriented, appears in no acute distress. HET: Head is normocephalic and atraumatic. Conjunctiva pink. Sclera anicteric. Neck: Supple without lymphadenopathy. Abdomen: Soft, diffuse tenderness but improved, nondistended with bowel sounds. No guarding or rigidity. Extremities: Normal skin color and turgor. No pedal edema Skin: No rashes, no jaundice Neurological: No focal deficits. Alert and oriented -3. - Labs CBC & Chem 7: 03/28/21 11:44 03/28/21 11:44 Labs: Abnormal Lab Results - Last 24 Hours (Table) 03/28/21 03/28/21 Range/Units 11:44 11:44 WBC 3.6 L (3.8-10.6) k/uL RDW 16.3 H (11.5-15.5) % Chloride 110 H (98-107) mmol/L Carbon Dioxide 21 L (22-30) mmol/L BUN 4 L (7-17) mg/dL Glucose 140 H (74-99) mg/dL Albumin 3.1 L (3.5-5.0) g/dL Lipase 2058 H (23-300) U/L Microbiology - Last 24 Hours (Table) 03/26/21 11:15 Blood Culture - Preliminary Blood No Growth after 48 hours 03/26/21 11:30 Blood Culture - Preliminary Blood No Growth after 48 hours Assessment and Plan (1) Pancreatitis Narrative/Plan: 30-year-old female with a past medical history of recurrent pancreatitis unknown etiology likely idiopathic. She's had multiple workup in the past. She had been following with Greta juarez in the office and last saw her a few months ago. Patient denies going down to [facility] as recommended in the past. States she's been having abdominal pain for the last 1 month's duration and has been seen here in this hospital earlier this month as well as [facility] and [place]. On admission patient was noted to have a lipase of 1279 LFTs were unremarkable. She had an x-ray of the abdomen with no acute findings. Apparently patient had a CT of the abdomen done at [facility] for which records have been requested. She associates the abdominal pain with nausea and vomiting and states she's not been able to eat. However she does deny any weight loss. We'll continue to treat symptomatically with aggressive IV hydration, pain medications and keep on clear liquids for now. No further workup is warranted at this time. Patient had a recent ultrasound on 03/16/2021 with a normal gallbladder, fatty liver, no CBD dilation. Pancreatitis likely secondary to hypertriglyceridemia. Recommend outpatient follow-up with automatic pinsetter adjuster and PCP for management. Current Visit: Yes Status: Acute Code(s): K85.90 - ACUTE PANCREATITIS WITHOUT NECROSIS OR INFECTION, UNSP SNOMED Code(s): 61665994 (2) Abdominal pain Current Visit: No Status: Acute Code(s): R10.9 - UNSPECIFIED ABDOMINAL PAIN SNOMED Code(s): 01008938 (3) Hypertriglyceridemia Narrative/Plan: Recommend outpatient follow-up with primary care physician and automatic pinsetter adjuster Current Visit: Yes Status: Acute Code(s): E78.1 - PURE HYPERGLYCERIDEMIA SNOMED Code(s): 070792707 Plan: 1. Continue symptomatic and supportive care 2. Advanced to low-fat diet, however patient did not tolerate. Diet as to lerated 3. Pain medications per primary medicine team 4. Recommend outpatient follow-up with PCP and automatic pinsetter adjuster to manage triglycerides 5. Outpatient follow up with GI Thank you for allowing us to participate in the care of the patient, the GI service will sign off, gastroenterology will not be available at the hospital this weekend and through next week. If further evaluation by gastroenterology is required the patient will need transfer as per the primary team's discretion. Dr. Aldo Bocanegra I agree with the dictator's note, documented as a scribe by Roxana Torres.
[2021-03-28 20:37] VITALS: RESP 16
[2021-03-28] MEDS: FENOFIBRATE 160 MG TAB PO SCH (21:31)
[2021-03-28] MEDS: traZODone HCL 100 MG TAB PO SCH (21:31)
[2021-03-28] MEDS: ESCITALOPRAM 10 MG TAB PO SCH (21:31)
[2021-03-28] MEDS: QUEtiapine 100 MG TAB PO SCH (21:31)
[2021-03-28] MEDS: ONDANSETRON 4 MG/2 ML VIAL IVP PRN (21:50)
--- NOTE | 2021-03-28 23:52 | P.PN ---
Subjective Progress Note Date: 03/28/21 This is a 30-year-old female who was recently admitted with abdominal pain and acute pancreatitis and being closely monitored. GI following an recommending continuing current medication regimens and strict diet and outpatient follow-up. Patient continues to have generalized pain and asking for an advancement in her diet stating she feels hungry. Lipase was drawn today and elevated at 2057 . Patient denies any chest pain or shortness of breath. Patient is afebrile. Patient is also maintained on IV ceftriaxone and will continue. Recommend strict low-fat diet with dietitian following. Encouraged increased activity as tolerated. Labs: WBC is 3.6, hemoglobin is 12.5, platelets are 201, sodium is 137, potassium 4.1, BUN is 4, creatinine is 0.69, amylase is 48, lipase is 2057 Review of systems: Constitutional: No reports of fatigue, fever, or chills Cardiovascular: No reports of chest pain or palpitations Respiratory: No reports of shortness of breath or cough GI: No reports of nausea, vomiting, or diarrhea, reports abdominal pain although less intense : No reports of dysuria or retention Neurovascular: No reports of weakness or numbness, reports generalized pain All medications have been reviewed Active Medications Acetaminophen (Acetaminophen Tab 325 Mg Tab) 650 mg PO Q6HR PRN PRN Reason: Mild Pain or Fever > 100.5 Last Admin: 03/26/21 11:34 Dose: 650 mg Documented by: Hydrocodone Bitart/Acetaminophen (Hydrocodone/Apap 5-325mg 1 Each Tab) 1 each PO Q4HR PRN PRN Reason: Pain Last Admin: 03/28/21 12:58 Dose: 1 each Documented by: Alprazolam (Alprazolam 0.25 Mg Tab) 0.25 mg PO TID PRN PRN Reason: Anxiety Escitalopram Oxalate (Escitalopram 10 Mg Tab) 10 mg PO HS JIMENA Last Admin: 03/27/21 19:51 Dose: 10 mg Documented by: Fenofibrate (Fenofibrate 160 Mg Tab) 160 mg PO HS JIMENA Last Admin: 03/27/21 19:51 Dose: 160 mg Documented by: Heparin Sodium (Porcine) (Heparin Sodium,Porcine/Pf 5,000 Unit/0.5 Ml Syringe) 5,000 unit SQ Q12HR [facility]IMENA Last Admin: 03/28/21 08:31 Dose: 5,000 unit Documented by: Hydromorphone HCl (Hydromorphone 0.5 Mg/0.5 Ml Syringe) 0.5 mg IVP Q6HR PRN PRN Reason: Severe Pain Last Admin: 03/28/21 15:41 Dose: 0.5 mg Documented by: Ceftriaxone Sodium 1 gm/ (Sodium Chloride) 50 mls @ 100 mls/hr IVPB Q24HR [facility] Last Admin: 03/28/21 08:34 Dose: Not Given Documented by: Sodium Chloride (Saline 0.9%) 1,000 mls @ 100 mls/hr IV .Q10H [facility] Last Admin: 03/28/21 15:40 Dose: 100 mls/hr Documented by: Naloxone HCl (Naloxone 0.4 Mg/Ml 1 Ml Vial) 0.2 mg IV Q2M PRN PRN Reason: Opioid Reversal Ondansetron HCl (Ondansetron 4 Mg/2 Ml Vial) 4 mg IVP Q6HR PRN PRN Reason: Nausea And Vomiting Last Admin: 03/26/21 20:55 Dose: 4 mg Documented by: Pantoprazole Sodium (Pantoprazole 40 Mg Tablet) 40 mg PO AC-BRKFST [facility] Last Admin: 03/28/21 08:36 Dose: 40 mg Documented by: Propranolol HCl (Propranolol 10 Mg Tab) 10 mg PO BID [facility] Last Admin: 03/28/21 08:33 Dose: 10 mg Documented by: Quetiapine Fumarate (Quetiapine 100 Mg Tab) 300 mg PO HS [facility] Last Admin: 03/27/21 19:50 Dose: 300 mg Documented by: Temazepam (Temazepam 15 Mg Cap) 15 mg PO HS PRN PRN Reason: Insomnia Topiramate (Topiramate 100 Mg Tab) 100 mg PO BID [facility] Last Admin: 03/28/21 08:34 Dose: 100 mg Documented by: Trazodone HCl (Trazodone Hcl 100 Mg Tab) 100 mg PO [facility] Last Admin: 03/27/21 19:51 Dose: 100 mg Documented by: Physical exam: Gen: This is a 30-year-old female awake, alert and oriented 3, well-developed, well-nourished, thin built. Temp is 98.0F, pulse is 72, respirations are 17, blood pressure is 94/63, oxygen saturation is 95% on room air. HEENT: Head is atraumatic, normocephalic. Pupils equal, round. Sclerae is anicteric. NECK: Supple. No JVD. No lymphadenopathy. No thyromegaly. LUNGS: Diminished breath sounds bilaterally with some scattered rhonchi and no wheezing noted.. No intercostal retractions. HEART: S1, S2 are muffled. ABDOMEN: Soft. Bowel sounds are present. No masses. No tenderness. EXTREMITIES: No pedal edema. No calf tenderness. NEUROLOGICAL: Patient is awake, alert and oriented x3. Cranial nerves 2 through 12 are grossly intact. Assessment: Acute abdominal pain with acute on chronic pancreatitis Chronic recurrent pancreatitis, possibly secondary to hypertriglyceridemia Severe abdominal pain with failure of outpatient treatment Possible acute urinary tract infection, present on admission Increased random glucose History of asthma Diabetes mellitus type 2 history Gastroesophageal reflux disease history of migraines History of degenerative joint disease Low back pain history of endometriosis and laparoscopic surgery anxiety, depression, posttraumatic stress disorder History of THC Obesity with a body mass index of 39.5 Full code Plan: recommend to continue current medications and management. Patient also evaluated by GI recommended outpatient follow-up and strict diet guidelines. Patient was maintained on clear liquids and asking for advancement in diet stating her abdominal pain is improved and would like to advance diet. Patient's lipase level elevated at 2057 and amylase today is 48. GI evaluated the patient today and will see the patient in the outpatient setting. Will place the patient back on clear liquids and continue IV hydration and pain management. Repeat am labs. Possible discharge in 24 hours. Due to multiple complex medical issues, prognosis is guarded. Objective - Vital Signs Vital signs: Vital Signs Temp 98.0 F 03/28/21 12:18 Pulse 72 03/28/21 12:18 Resp 17 03/28/21 12:18 BP 94/63 03/28/21 12:18 Pulse Ox 95 03/28/21 12:18 Intake & Output 03/27/21 03/28/21 03/28/21 18:59 06:59 18:59 Weight 104.326 kg 104.326 kg Other: Voiding Method Toilet # Voids 1 2 - Labs CBC & Chem 7: 03/28/21 11:44 03/28/21 11:44 Labs: Abnormal Lab Results - Last 24 Hours (Table) 03/28/21 03/28/21 Range/Units 11:44 11:44 WBC 3.6 L (3.8-10.6) k/uL RDW 16.3 H (11.5-15.5) % Chloride 110 H (98-107) mmol/L Carbon Dioxide 21 L (22-30) mmol/L BUN 4 L (7-17) mg/dL Glucose 140 H (74-99) mg/dL Albumin 3.1 L (3.5-5.0) g/dL Lipase 2058 H (23-300) U/L Microbiology - Last 24 Hours (Table) 03/26/21 11:15 Blood Culture - Preliminary Blood No Growth after 48 hours 03/26/21 11:30 Blood Culture - Preliminary Blood No Growth after 48 hours
[2021-03-29] MEDS: HYDROmorphone 0.5 MG/0.5 ML SYRINGE IVP PRN ×3 (03:36→18:32)
[2021-03-29] MEDS: SODIUM CHLORIDE 0.9% 1,000 ML IV SCH ×3 (03:38→20:42)
[2021-03-29 04:33] LABS: African American GFR (CKD) >90 (>60 ml/min/1.73 sqM); Amylase 34 U/L (30-110); Anion Gap 7 mmol/L; Blood Urea Nitrogen 4 mg/dL (7-17); Calcium 9.4 mg/dL (8.4-10.2); Carbon Dioxide 21 mmol/L (22-30); Chloride 109 mmol/L (98-107); Glucose 124 mg/dL (74-99); Lipase 1783 U/L (23-300); Non-African American GFR(CKD) >90 (>60 ml/min/1.73 sqM); Potassium 3.8 mmol/L (3.5-5.1); Sodium 137 mmol/L (137-145)
[2021-03-29] MEDS: ONDANSETRON 4 MG/2 ML VIAL IVP PRN (09:57)
[2021-03-29] MEDS: PANTOPRAZOLE 40 MG TABLET PO SCH (09:58)
[2021-03-29] MEDS: HEPARIN SODIUM,PORCINE/PF 5,000 UNIT/0.5 ML SYRINGE SQ SCH ×2 (09:58→20:40)
[2021-03-29] MEDS: PROPRANOLOL 10 MG TAB PO SCH ×2 (09:59→20:38)
[2021-03-29] MEDS: TOPIRAMATE 100 MG TAB PO SCH ×2 (09:59→20:40)
--- NOTE | 2021-03-29 10:38 | XR ---
EXAMINATION TYPE: XR chest 1V portable DATE OF EXAM: 03/29/2021 COMPARISON: 02/03/2021 HISTORY: Shortness of breath TECHNIQUE: Single frontal view of the chest is obtained. FINDINGS: There is no focal air space opacity, pleural effusion, or pneumothorax seen. The cardiac silhouette size is within normal limits. The osseous structures are intact. IMPRESSION: No acute process.
[2021-03-29] MEDS: HYDROcodone/APAP 5-325MG 1 EACH TAB PO PRN (15:38)
[2021-03-29] MEDS: FENOFIBRATE 160 MG TAB PO SCH (20:40)
[2021-03-29] MEDS: QUEtiapine 100 MG TAB PO SCH (20:40)
[2021-03-29] MEDS: traZODone HCL 100 MG TAB PO SCH (20:40)
[2021-03-29] MEDS: ESCITALOPRAM 10 MG TAB PO SCH (20:40)
--- NOTE | 2021-03-29 23:43 | P.PN ---
Subjective Progress Note Date: 03/29/21 This is a 30-year-old female who was recently admitted with abdominal pain and acute pancreatitis and being closely monitored. GI following an recommending continuing current medication regimens and strict diet and outpatient follow-up. Patient continues to have generalized pain and asking for an advancement in her diet stating she feels hungry. Lipase was drawn today and elevated at 2057 . Patient denies any chest pain or shortness of breath. Patient is afebrile. Patient is also maintained on IV ceftriaxone and will continue. Recommend strict low-fat diet with dietitian following. Encouraged increased activity as tolerated. . 03/29/2021 She is seen and evaluated in follow-up this morning continues with abdominal pain and was recently admitted for acute pancreatitis and continues to be monitored closely. GI has evaluated the patient recommending compliance with outpatient follow-up as patient was scheduled to follow-up with [facility] in the outpatient setting. Patient to continue with clear liquids for now and advance slowly as tolerated. Repeat lipase today trending down at 1783 and patient is continued on IV hydration. Patient oxygen saturation this morning is 91% on room air and patient denies shortness of breath, will obtain chest x-ray. Labs: Sodium is 137, potassium is 3.8, BUN is 4, creatinine is 0.67, calcium is 9.4, amylase is 34, lipase is 1783 Review of systems: Constitutional: No reports of fatigue, fever, or chills Cardiovascular: No reports of chest pain or palpitations Respiratory: No reports of shortness of breath or cough GI: No reports of nausea, vomiting, or diarrhea, reports abdominal pain although less intense : No reports of dysuria or retention Neurovascular: No reports of weakness or numbness, reports generalized pain All medications have been reviewed Active Medications Acetaminophen (Acetaminophen Tab 325 Mg Tab) 650 mg PO Q6HR PRN PRN Reason: Mild Pain or Fever > 100.5 Last Admin: 03/26/21 11:34 Dose: 650 mg Documented by: Hydrocodone Bitart/Acetaminophen (Hydrocodone/Apap 5-325mg 1 Each Tab) 1 each PO Q4HR PRN PRN Reason: Pain Last Admin: 03/28/21 23:55 Dose: 1 each Documented by: Alprazolam (Alprazolam 0.25 Mg Tab) 0.25 mg PO TID PRN PRN Reason: Anxiety Escitalopram Oxalate (Escitalopram 10 Mg Tab) 10 mg PO HS [facility] Last Admin: 03/28/21 21:31 Dose: 10 mg Documented by: Fenofibrate (Fenofibrate 160 Mg Tab) 160 mg PO HS [facility] Last Admin: 03/28/21 21:31 Dose: 160 mg Documented by: Heparin Sodium (Porcine) (Heparin Sodium,Porcine/Pf 5,000 Unit/0.5 Ml Syringe) 5,000 unit SQ Q12HR [facility] Last Admin: 03/29/21 09:58 Dose: 5,000 unit Documented by: Hydromorphone HCl (Hydromorphone 0.5 Mg/0.5 Ml Syringe) 0.5 mg IVP Q6HR PRN PRN Reason: Severe Pain Last Admin: 03/29/21 03:36 Dose: 0.5 mg Documented by: Ceftriaxone Sodium 1 gm/ (Sodium Chloride) 50 mls @ 100 mls/hr IVPB Q24HR [facility] Last Admin: 03/29/21 09:58 Dose: 100 mls/hr Documented by: Sodium Chloride (Saline 0.9%) 1,000 mls @ 100 mls/hr IV .Q10H [facility] Last Admin: 03/29/21 03:38 Dose: 100 mls/hr Documented by: Naloxone HCl (Naloxone 0.4 Mg/Ml 1 Ml Vial) 0.2 mg IV Q2M PRN PRN Reason: Opioid Reversal Ondansetron HCl (Ondansetron 4 Mg/2 Ml Vial) 4 mg IVP Q6HR PRN PRN Reason: Nausea And Vomiting Last Admin: 03/29/21 09:57 Dose: 4 mg Documented by: Pantoprazole Sodium (Pantoprazole 40 Mg Tablet) 40 mg PO AC-BRKFST [facility] Last Admin: 03/29/21 09:58 Dose: 40 mg Documented by: Propranolol HCl (Propranolol 10 Mg Tab) 10 mg PO BID [facility] Last Admin: 03/29/21 09:59 Dose: 10 mg Documented by: Quetiapine Fumarate (Quetiapine 100 Mg Tab) 300 mg PO HS [facility] Last Admin: 03/28/21 21:31 Dose: 300 mg Documented by: Temazepam (Temazepam 15 Mg Cap) 15 mg PO HS PRN PRN Reason: Insomnia Topiramate (Topiramate 100 Mg Tab) 100 mg PO BID [facility] Last Admin: 03/29/21 09:59 Dose: 100 mg Documented by: Trazodone HCl (Trazodone Hcl 100 Mg Tab) 100 mg PO HS [facility] Last Admin: 03/28/21 21:31 Dose: 100 mg Documented by: Physical exam: Gen: This is a 30-year-old female awake, alert and oriented 3, well-developed, well-nourished, thin built. Temp is 97.6 F, pulse is 73, respirations are 16, blood pressure is 87/56, oxygen saturation is 91% on room air. HEENT: Head is atraumatic, normocephalic. Pupils equal, round. Sclerae is anicteric. NECK: Supple. No JVD. No lymphadenopathy. No thyromegaly. LUNGS: Diminished breath sounds bilaterally with some scattered rhonchi and no wheezing noted.. No intercostal retractions. HEART: S1, S2 are muffled. ABDOMEN: Soft. Bowel sounds are present. No masses. No tenderness. EXTREMITIES: No pedal edema. No calf tenderness. NEUROLOGICAL: Patient is awake, alert and oriented x3. Cranial nerves 2 through 12 are grossly intact. Assessment: Acute abdominal pain with acute on chronic pancreatitis Chronic recurrent pancreatitis, possibly secondary to hypertriglyceridemia Severe abdominal pain with failure of outpatient treatment Possible acute urinary tract infection, present on admission Increased random glucose History of asthma Diabetes mellitus type 2 history Gastroesophageal reflux disease history of migraines History of degenerative joint disease Low back pain history of endometriosis and laparoscopic surgery anxiety, depression, posttraumatic stress disorder History of THC Obesity with a body mass index of 39.5 Full code Plan: recommend to continue current medications and management. Patient also ev aluated by GI recommended outpatient follow-up and strict diet guidelines. Patient was maintained on clear liquids and will continue for now as patient continues to have abdominal pain and nausea. Will continue IV hydration and pain management. Repeat am labs. Due to multiple complex medical issues, prognosis is guarded. Possible discharge in 24 hours. Objective - Vital Signs Vital signs: Vital Signs Temp 97.6 F 03/29/21 04:33 Pulse 73 03/29/21 04:33 Resp 16 03/29/21 04:33 BP 87/56 03/29/21 04:33 Pulse Ox 91 L 03/29/21 04:33 Intake & Output 03/28/21 03/29/21 03/29/21 18:59 06:59 18:59 Intake Total 300 710 Balance 300 710 Weight 104.326 kg Intake: Intake, IV Titration 300 Amount Sodium Chloride 0.9% 1, 300 000 ml @ 100 mls/hr IV . Q10H [facility] Rx#:[id number] Oral 710 Other: Voiding Method Toilet Toilet # Voids 1 - Labs CBC & Chem 7: 03/28/21 11:44 03/29/21 04:06 Labs: Abnormal Lab Results - Last 24 Hours (Table) 03/28/21 03/28/21 03/29/21 Range/Units 11:44 11:44 04:06 WBC 3.6 L (3.8-10.6) k/uL RDW 16.3 H (11.5-15.5) % Chloride 110 H 109 H (98-107) mmol/L Carbon Dioxide 21 L 21 L (22-30) mmol/L BUN 4 L 4 L (7-17) mg/dL Glucose 140 H 124 H (74-99) mg/dL Albumin 3.1 L (3.5-5.0) g/dL Lipase 2058 H 1783 H (23-300) U/L Microbiology - Last 24 Hours (Table) 03/26/21 11:15 Blood Culture - Preliminary Blood No Growth after 48 hours 03/26/21 11:30 Blood Culture - Preliminary Blood No Growth after 48 hours
[2021-03-30] MEDS: HYDROmorphone 0.5 MG/0.5 ML SYRINGE IVP PRN ×2 (00:24→06:25)
[2021-03-30] MEDS: HYDROcodone/APAP 5-325MG 1 EACH TAB PO PRN ×2 (05:02→12:49)
[2021-03-30] MEDS: SODIUM CHLORIDE 0.9% 1,000 ML IV SCH (06:00)
[2021-03-30] MEDS: PROPRANOLOL 10 MG TAB PO SCH (08:00)
[2021-03-30] MEDS: TOPIRAMATE 100 MG TAB PO SCH (08:00)
[2021-03-30] MEDS: PANTOPRAZOLE 40 MG TABLET PO SCH (08:00)
[2021-03-30] MEDS: HEPARIN SODIUM,PORCINE/PF 5,000 UNIT/0.5 ML SYRINGE SQ SCH (08:01)
[2021-03-30 13:25] VITALS: BP 117/81; PULSE 75; TEMP 98.1
== END 2021-03-30 15:03 | disposition home or self-care (01) | DRG 439 ==
LOC: EC 07:00 → 5NMEDONC 09:20
PROVIDERS: ADMIT Hospitalist; ATTEND Hospitalist
DX: K85.90 Acute pancreatitis without necrosis or infection, unspecified (principal); K86.2 Cyst of pancreas; N39.0 Urinary tract infection, site not specified; K86.1 Other chronic pancreatitis; E11.9 Type 2 diabetes mellitus without complications; E66.9 Obesity, unspecified; K76.0 Fatty (change of) liver, not elsewhere classified; Z68.39 Body mass index [BMI] 39.0-39.9, adult; E78.1 Pure hyperglyceridemia; E78.5 Hyperlipidemia, unspecified; F32.A Depression, unspecified; F43.10 Post-traumatic stress disorder, unspecified; F60.9 Personality disorder, unspecified; J45.909 Unspecified asthma, uncomplicated; K21.9 Gastro-esophageal reflux disease without esophagitis; K58.9 Irritable bowel syndrome, unspecified; Z20.822 Contact with and (suspected) exposure to COVID-19; Z79.899 Other long term (current) drug therapy; Z80.0 Family history of malignant neoplasm of digestive organs; Z82.49 Family history of ischemic heart disease and other diseases of the circulatory system; Z88.8 Allergy status to other drugs, medicaments and biological substances; Z91.040 Latex allergy status; Z88.2 Allergy status to sulfonamides; G43.909 Migraine, unspecified, not intractable, without status migrainosus; Z91.030 Bee allergy status; Z91.018 Allergy to other foods
CPT/HCPCS: 36415; 71045; 74022; 80048; 80053; 80061; 81001; 81025; 82150; 83690; 83721; 85025; 87040; 87635; 93005; 99285

== ENCOUNTER 2021-04-05 00:18 | Emergency (ER) | payer OTHER ==
[2021-04-05 00:28] VITALS: RESP 18
[2021-04-05] MEDS: HYDROmorphone 1 MG/ML 1 ML SYRINGE IVP STA ×2 (00:53→02:04)
[2021-04-05] MEDS: ONDANSETRON 4 MG/2 ML VIAL IVP STA ×2 (00:53→02:03)
[2021-04-05] MEDS: SODIUM CHLORIDE 0.9% 1,000 ML IV STA ×2 (00:53→02:03)
[2021-04-05 01:20] LABS: Basophils % (A) 1 %; Eosinophils # (A) 0.1 k/uL (0-0.7); Eosinophils % (A) 3 %; HCT 41.5 % (34.0-46.0); HGB 13.2 gm/dL (11.4-16.0); Lymphocytes # (A) 2.5 k/uL (1.0-4.8); Lymphocytes % (A) 53 %; MCH 30.3 pg (25.0-35.0); MCHC 31.9 g/dL (31.0-37.0); MCV 95.1 fL (80.0-100.0); Mean Platelet Volume 8.2; Monocytes # (A) 0.3 k/uL (0-1.0); Monocytes % (A) 6 %; Neutrophils # (A) 1.6 k/uL (1.3-7.7); Neutrophils % (A) 36 %; Platelet Count 234 k/uL (150-450); RBC 4.36 m/uL (3.80-5.40); RDW 15.9 % (11.5-15.5); WBC 4.6 k/uL (3.8-10.6)
[2021-04-05 01:26] LABS: ALT 21 U/L (4-34); AST 34 U/L (14-36); African American GFR (CKD) >90 (>60 ml/min/1.73 sqM); Albumin 3.6 g/dL (3.5-5.0); Alkaline Phosphatase 111 U/L (38-126); Amylase 48 U/L (30-110); Anion Gap 12 mmol/L; Blood Urea Nitrogen 3 mg/dL (7-17); Calcium 9.9 mg/dL (8.4-10.2); Carbon Dioxide 19 mmol/L (22-30); Chloride 108 mmol/L (98-107); Glucose 118 mg/dL (74-99); Lipase 1449 U/L (23-300); Non-African American GFR(CKD) >90 (>60 ml/min/1.73 sqM); Potassium 3.9 mmol/L (3.5-5.1); Sodium 139 mmol/L (137-145); Total Bilirubin 0.5 mg/dL (0.2-1.3); Total Protein 7.1 g/dL (6.3-8.2)
--- NOTE | 2021-04-05 02:08 | ED ---
Abdominal Pain HPI - General Chief Complaint: Abdominal Pain Stated Complaint: Right side abdominal pain Time Seen by Provider: 04/05/21 00:30 Source: patient, RN notes reviewed Mode of arrival: ambulatory - History of Present Illness Initial Comments: Patient is a 30-year-old female that presents to emergency department complaining of upper abdominal pain. She notes she does have a history of pancreatitis. She admitted to being admitted to the hospital several times. Patient notes that she tried calling the GI specialist but is unable to get in until after April 12. Patient notes that she's been eating mashed doesn't soup. Patient was informed that with pancreatitis you are not supposed to do no oral intake other than water. Patient denied any alleviating factors at this time. Patient did not appear to be in any distress. She notes her pain was approximate 7 out of 10. She denied chest pain shortness of breath headache diarrhea constipation fever fatigue chills. - Related Data Home Medications Medication Instructions Recorded Confirmed Topiramate [Topamax] 100 mg PO BID 03/16/21 03/26/21 Fenofibrate Nanocrystallized 145 mg PO HS 03/26/21 03/26/21 [Fenofibrate] Previous Rx's Medication Instructions Recorded Escitalopram [Lexapro] 10 mg PO HS 30 Days tab 02/10/21 Melatonin 3 mg PO HS 30 Days tablet 02/10/21 Propranolol [Inderal] 10 mg PO BID 30 Days tab 02/10/21 QUEtiapine [SEROquel] 300 mg PO HS 30 Days tab 02/10/21 traZODone HCL [Desyrel] 100 mg PO HS 30 Days tab 02/10/21 Pantoprazole Sodium [Protonix] 40 mg PO DAILY #30 tab 03/17/21 Acetaminophen Tab [Tylenol] 650 mg PO Q6HR PRN tab 03/30/21 HYDROcodone/APAP 10-325MG [[place] 1 tab PO Q6HR PRN #6 tab 03/30/21 10-325] Allergies Allergy/AdvReac Type Severity Reaction Status Date / Time bee pollen Allergy Severe Anaphylaxis Verified 04/05/21 00:28 haloperidol [From Haldol] Allergy Severe QUIT Verified 04/05/21 00:28 BREATHING haloperidol lactate Allergy Severe QUIT Verified 04/05/21 00:28 [From Haldol] BREATHING latex Allergy Severe RASH-THROAT Verified 04/05/21 00:28 CLOSES [place] Allergy Anaphylaxis Verified 04/05/21 00:28 coconut Allergy Anaphylaxis Verified 04/05/21 00:28 pineapple Allergy Anaphylaxis Verified 04/05/21 00:28 prednisone Allergy THROAT Verified 04/05/21 00:28 SWELLS spider venom Allergy Swelling Verified 04/05/21 00:28 Sulfa (Sulfonamide Allergy THROAT Verified 04/05/21 00:28 Antibiotics) SWELLS venom-wasp Allergy Swelling Verified 04/05/21 00:28 venom-wasp protein Allergy Swelling Verified 04/05/21 00:28 promethazine HCl AdvReac Severe Nausea & Verified 04/05/21 00:28 [From Phenergan] Vomiting tramadol AdvReac Severe Nausea & Verified 04/05/21 00:28 Vomiting amoxicillin AdvReac Nausea & Verified 04/05/21 00:28 Vomiting ANTS Allergy Mild Anaphylaxis Uncoded 03/26/21 09:26 Review of Systems ROS Statement: Those systems with pertinent positive or pertinent negative responses have been documented in the HPI. ROS Other: All systems not noted in ROS Statement are negative. Past Medical History Past Medical History: Asthma, Diabetes Mellitus, GERD/Reflux Additional Past Medical History / Comment(s): migraines, degenerative disk disease, endometriosis, lupus, pancreatitis History of Any Multi-Drug Resistant Organisms: None Reported Past Surgical History: Orthopedic Surgery Additional Past Surgical History / Comment(s): laparoscopc surgery for endometriosis, cyst removed from left foot, EGD, Past Anesthesia/Blood Transfusion Reactions: Previous Problems w/ Anesthesia Additional Past Anesthesia/Blood Transfusion Reaction / Comment(s): hard to wake up for 48-72 hours after laparoscopic surgery-was in hosp. for 3 days Past Psychological History: Anxiety, Depression, PTSD Smoking Status: Vaper Past Alcohol Use History: None Reported Past Drug Use History: Marijuana - Past Family History Mother Family Medical History: No Reported History Additional Family Medical History / Comment(s): hx migraines Father Family Medical History: Coronary Artery Disease (CAD), Hypertension Additional Family Medical History / Comment(s): ddd, alcoholism & drug use General Exam Limitations: no limitations General appearance: alert, in no apparent distress, obese Head exam: Present: atraumatic, normocephalic, normal inspection Eye exam: Present: normal appearance, PERRL, EOMI. Absent: scleral icterus, conjunctival injection, periorbital swelling ENT exam: Present: normal exam, mucous membranes moist Neck exam: Present: normal inspection Respiratory exam: Present: normal lung sounds bilaterally. Absent: respiratory distress, wheezes, rales, rhonchi, stridor Cardiovascular Exam: Present: regular rate, normal rhythm, normal heart sounds. Absent: systolic murmur, diastolic murmur, rubs, gallop, clicks GI/Abdominal exam: Present: soft, normal bowel sounds. Absent: distended, tenderness, guarding, rebound, rigid Extremities exam: Present: normal inspection, full ROM, normal capillary refill. Absent: tenderness, pedal edema, joint swelling, calf tenderness Neurological exam: Present: alert, oriented X3 Psychiatric exam: Present: normal affect, normal mood Skin exam: Present: warm, dry, intact, normal color. Absent: rash Course Vital Signs 04/05/21 04/05/21 04/05/21 00:25 00:55 02:00 Temperature 98.9 F Pulse Rate 138 H 120 H 99 Respiratory 18 18 18 Rate Blood Pressure 112/77 116/6 110/73 O2 Sat by Pulse 98 94 L 94 L Oximetry Medical Decision Making - Medical Decision Making 30-year-old female complaining of upper abdominal pain, history of diabetes pain Labs, 1 L normal saline, 1 mg of Dilaudid, 4 mg Zofran ordered. Labs: CBC unremarkable, lipase 1400, amylase 48. 1 more liter normal saline, 1 more milligram of Dilaudid, 4 mg of Zofran ordered. Patient was informed of these results in a school discharge home with follow-up to primary care per patient states she has not lost in the hospital due to being [place]. Patient's vital signs are within normal limits, heart rate of 97-98 on monitor upon reevaluation. Case discussed with Dr. Turner - Lab Data Result diagrams: 04/05/21 00:55 04/05/21 00:55 Lab Results 04/05/21 04/05/21 Range/Units 00:55 00:55 WBC 4.6 (3.8-10.6) k/uL RBC 4.36 (3.80-5.40) m/uL Hgb 13.2 (11.4-16.0) gm/dL Hct 41.5 (34.0-46.0) % MCV 95.1 (80.0-100.0) fL MCH 30.3 (25.0-35.0) pg MCHC 31.9 (31.0-37.0) g/dL RDW 15.9 H (11.5-15.5) % Plt Count 234 (150-450) k/uL MPV 8.2 Neutrophils % 36 % Lymphocytes % 53 % Monocytes % 6 % Eosinophils % 3 % Basophils % 1 % Neutrophils # 1.6 (1.3-7.7) k/uL Lymphocytes # 2.5 (1.0-4.8) k/uL Monocytes # 0.3 (0-1.0) k/uL Eosinophils # 0.1 (0-0.7) k/uL Basophils # 0.0 (0-0.2) k/uL Sodium 139 (137-145) mmol/L Potassium 3.9 (3.5-5.1) mmol/L Chloride 108 H (98-107) mmol/L Carbon Dioxide 19 L (22-30) mmol/L Anion Gap 12 mmol/L BUN 3 L (7-17) mg/dL Creatinine 0.68 (0.52-1.04) mg/dL Est GFR (CKD-EPI)AfAm >90 (>60 ml/min/1.73 sqM) Est GFR (CKD-EPI)NonAf >90 (>60 ml/min/1.73 sqM) Glucose 118 H (74-99) mg/dL Calcium 9.9 (8.4-10.2) mg/dL Total Bilirubin 0.5 (0.2-1.3) mg/dL AST 34 (14-36) U/L ALT 21 (4-34) U/L Alkaline Phosphatase 111 (38-126) U/L Total Protein 7.1 (6.3-8.2) g/dL Albumin 3.6 (3.5-5.0) g/dL Amylase 48 (30-110) U/L Lipase 1449 H (23-300) U/L Disposition Clinical Impression: Pancreatitis Disposition: HOME SELF-CARE Condition: Stable Instructions (If sedation given, give patient instructions): Pancreatitis (ED) Additional Instructions: Please return to the Emergency Department if symptoms worsen or any other co ncerns. Follow-up with primary care in 1-2 days. Do not eat anything by mouth, clear liquids only. Continue to take pain medication as prescribed. Is patient prescribed a controlled substance at d/c from ED?: No Referrals: Jorje Mayes MD [Primary Care Provider] - 1-2 days Time of Disposition: 02:18
[2021-04-05] MEDS: diphenhydrAMINE 50 MG/ML 1 ML VIAL IVP STA (02:14)
[2021-04-05 03:27] VITALS: BP 123/84; PULSE 91; TEMP 98.3
== END 2021-04-05 03:27 | disposition home or self-care (01) ==
LOC: EC 00:18
DX: K85.90 Acute pancreatitis without necrosis or infection, unspecified (principal); J45.909 Unspecified asthma, uncomplicated; E11.9 Type 2 diabetes mellitus without complications; G43.909 Migraine, unspecified, not intractable, without status migrainosus; F43.10 Post-traumatic stress disorder, unspecified; F41.9 Anxiety disorder, unspecified; F32.A Depression, unspecified; F12.90 Cannabis use, unspecified, uncomplicated; F17.290 Nicotine dependence, other tobacco product, uncomplicated; K21.9 Gastro-esophageal reflux disease without esophagitis; Z79.899 Other long term (current) drug therapy
CPT/HCPCS: 80053; 82150; 83690; 85025; 99284; 96374; 96375 ×2; 96376 ×2; 96361 ×2; J1200; J2405; J1170

== ENCOUNTER 2021-04-08 18:01 | Inpatient (IN) | payer OTHER ==
[2021-04-08] MEDS ORDERED: diphenhydrAMINE 50 MG/ML 1 ML VIAL IVP STA (19:59)
[2021-04-08] MEDS ORDERED: SODIUM CHLORIDE 0.9% 1,000 ML IV STA (19:59)
[2021-04-08] MEDS ORDERED: HYDROmorphone 0.5 MG/0.5 ML SYRINGE IVP STA ×3 (19:59→21:44)
--- NOTE | 2021-04-08 20:06 | ED ---
Abdominal Pain HPI - General Chief Complaint: Abdominal Pain Stated Complaint: revisit - abd pain, vomiting Time Seen by Provider: 04/08/21 19:55 Source: patient, RN notes reviewed, old records reviewed Mode of arrival: ambulatory Limitations: no limitations - History of Present Illness Initial Comments: 30-year-old female presents to the emergency room with complaints of right upper quadrant abdominal pain is sharp and stabbing with vomiting multiple times today. She states that it is similar to the pain and she was seen here for 3 days ago but significantly worse. She denies any fevers or diarrhea. No chest pain or difficulty in breathing. MD Complaint: abdominal pain -: days(s) (3) Location: RUQ Radiation: none Severity: severe Severity scale (1-10): 10 Quality: stabbing, sharp Consistency: constant Improves With: nothing Worsens With: nothing Associated Symptoms: nausea, vomiting - Related Data Home Medications Medication Instructions Recorded Confirmed Topiramate [Topamax] 100 mg PO BID 03/16/21 04/08/21 Fenofibrate Nanocrystallized 145 mg PO HS 03/26/21 04/08/21 [Fenofibrate] QUEtiapine FUMARATE [SEROquel] 300 mg PO HS 04/08/21 04/08/21 Previous Rx's Medication Instructions Recorded Escitalopram [Lexapro] 10 mg PO HS 30 Days tab 02/10/21 Melatonin 3 mg PO HS 30 Days tablet 02/10/21 Propranolol [Inderal] 10 mg PO BID 30 Days tab 02/10/21 traZODone HCL [Desyrel] 100 mg PO HS 30 Days tab 02/10/21 Pantoprazole Sodium [Protonix] 40 mg PO DAILY #30 tab 03/17/21 Acetaminophen Tab [Tylenol] 650 mg PO Q6HR PRN tab 03/30/21 Allergies Allergy/AdvReac Type Severity Reaction Status Date / Time bee pollen Allergy Severe Anaphylaxis Verified 04/08/21 23:14 haloperidol [From Haldol] Allergy Severe QUIT Verified 04/08/21 23:14 BREATHING haloperidol lactate Allergy Severe QUIT Verified 04/08/21 23:14 [From Haldol] BREATHING latex Allergy Severe RASH-THROAT Verified 04/08/21 23:14 CLOSES mur[place] Allergy Anaphylaxis Verified 04/08/21 23:14 coconut Allergy Anaphylaxis Verified 04/08/21 23:14 pineapple Allergy Anaphylaxis Verified 04/08/21 23:14 prednisone Allergy THROAT Verified 04/08/21 23:14 SWELLS spider venom Allergy Swelling Verified 04/08/21 23:14 Sulfa (Sulfonamide Allergy THROAT Verified 04/08/21 23:14 Antibiotics) SWELLS venom-wasp Allergy Swelling Verified 04/08/21 23:14 venom-wasp protein Allergy Swelling Verified 04/08/21 23:14 promethazine HCl AdvReac Severe Nausea & Verified 04/08/21 23:14 [From Phenergan] Vomiting tramadol AdvReac Severe Nausea & Verified 04/08/21 23:14 Vomiting amoxicillin AdvReac Nausea & Verified 04/08/21 23:14 Vomiting ANTS AdvReac Mild Anaphylaxis Uncoded 04/08/21 23:14 Review of Systems ROS Statement: Those systems with pertinent positive or pertinent negative responses have been documented in the HPI. ROS Other: All systems not noted in ROS Statement are negative. Past Medical History Past Medical History: Asthma, Diabetes Mellitus, GERD/Reflux Additional Past Medical History / Comment(s): migraines, degenerative disk disease, endometriosis, lupus, pancreatitis History of Any Multi-Drug Resistant Organisms: None Reported Past Surgical History: Orthopedic Surgery Additional Past Surgical History / Comment(s): laparoscopc surgery for endometriosis, cyst removed from left foot, EGD, Past Anesthesia/Blood Transfusion Reactions: Previous Problems w/ Anesthesia Additional Past Anesthesia/Blood Transfusion Reaction / Comment(s): hard to wake up for 48-72 hours after laparoscopic surgery-was in hosp. for 3 days Past Psychological History: Anxiety, Depression, PTSD Smoking Status: Vaper Past Alcohol Use History: None Reported Past Drug Use History: Marijuana - Past Family History Mother Family Medical History: No Reported History Additional Family Medical History / Comment(s): hx migraines Father Family Medical History: Coronary Artery Disease (CAD), Hypertension Additional Family Medical History / Comment(s): ddd, alcoholism & drug use General Exam Limitations: no limitations General appearance: alert, in no apparent distress Head exam: Present: atraumatic, normocephalic, normal inspection Eye exam: Present: normal appearance, EOMI. Absent: scleral icterus, co njunctival injection ENT exam: Present: normal exam, mucous membranes moist Neck exam: Present: normal inspection, full ROM. Absent: meningismus, lym phadenopathy Respiratory exam: Present: normal lung sounds bilaterally. Absent: respiratory distress, wheezes, rales, rhonchi, stridor Cardiovascular Exam: Present: tachycardia, normal heart sounds GI/Abdominal exam: Present: soft, tenderness (Right upper quadrant) Neurological exam: Present: alert, oriented X3 Psychiatric exam: Present: normal affect, normal mood Skin exam: Present: warm, dry, intact, normal color. Absent: rash, cyanosis, diaphoretic Course Vital Signs 04/08/21 04/08/21 18:51 22:43 Temperature 98.0 F Pulse Rate 137 H 86 Respiratory 18 18 Rate Blood Pressure 150/87 123/93 O2 Sat by Pulse 98 96 Oximetry Medical Decision Making - Medical Decision Making 30-year-old female presents to the emergency room with complaints of right upper quadrant abdominal pain that is sharp and stabbing. She states that it is similar to the pain and she was seen here for 3 days ago but significantly worse. Patient's lipase was 1449 on April 05 and 1818 today. She has increasing right upper quadrant pain with nausea and vomiting and is vomiting undigested noodles upon arrival to the ER. She was given IV fluids and antiemetics and pain medication in the emergency room. Admitted for pancreatitis. Case disc ussed with Dr. Turner - Lab Data Result diagrams: 04/08/21 19:59 04/08/21 19:59 Lab Results 04/08/21 04/08/21 04/08/21 Range/Units 19:59 19:59 19:59 WBC 3.6 L (3.8-10.6) k/uL RBC 3.79 L (3.80-5.40) m/uL Hgb 11.8 (11.4-16.0) gm/dL Hct 35.7 (34.0-46.0) % MCV 94.1 (80.0-100.0) fL MCH 31.0 (25.0-35.0) pg MCHC 32.9 (31.0-37.0) g/dL RDW 16.0 H (11.5-15.5) % Plt Count 223 (150-450) k/uL MPV 7.8 Neutrophils % 53 % Lymphocytes % 38 % Monocytes % 4 % Eosinophils % 3 % Basophils % 1 % Neutrophils # 1.9 (1.3-7.7) k/uL Lymphocytes # 1.4 (1.0-4.8) k/uL Monocytes # 0.2 (0-1.0) k/uL Eosinophils # 0.1 (0-0.7) k/uL Basophils # 0.0 (0-0.2) k/uL Sodium 137 (137-145) mmol/L Potassium 3.8 (3.5-5.1) mmol/L Chloride 108 H (98-107) mmol/L Carbon Dioxide 20 L (22-30) mmol/L Anion Gap 9 mmol/L BUN 5 L (7-17) mg/dL Creatinine 0.70 (0.52-1.04) mg/dL Est GFR (CKD-EPI)AfAm >90 (>60 ml/min/1.73 sqM) Est GFR (CKD-EPI)NonAf >90 (>60 ml/min/1.73 sqM) Glucose 125 H (74-99) mg/dL Plasma Lactic Acid Aurelio 1.3 (0.7-2.0) mmol/L Calcium 9.7 (8.4-10.2) mg/dL Total Bilirubin 0.4 (0.2-1.3) mg/dL AST 43 H (14-36) U/L ALT 18 (4-34) U/L Alkaline Phosphatase 81 (38-126) U/L Total Protein 6.3 (6.3-8.2) g/dL Albumin 3.2 L (3.5-5.0) g/dL Amylase 54 (30-110) U/L Lipase 1819 H (23-300) U/L Coronavirus (PCR) (Not Detectd) 04/08/21 Range/Units 22:38 WBC (3.8-10.6) k/uL RBC (3.80-5.40) m/uL Hgb (11.4-16.0) gm/dL Hct (34.0-46.0) % MCV (80.0-100.0) fL MCH (25.0-35.0) pg MCHC (31.0-37.0) g/dL RDW (11.5-15.5) % Plt Count (150-450) k/uL MPV Neutrophils % % Lymphocytes % % Monocytes % % Eosinophils % % Basophils % % Neutrophils # (1.3-7.7) k/uL Lymphocytes # (1.0-4.8) k/uL Monocytes # (0-1.0) k/uL Eosinophils # (0-0.7) k/uL Basophils # (0-0.2) k/uL Sodium (137-145) mmol/L Potassium (3.5-5.1) mmol/L Chloride (98-107) mmol/L Carbon Dioxide (22-30) mmol/L Anion Gap mmol/L BUN (7-17) mg/dL Creatinine (0.52-1.04) mg/dL Est GFR (CKD-EPI)AfAm (>60 ml/min/1.73 sqM) Est GFR (CKD-EPI)NonAf (>60 ml/min/1.73 sqM) Glucose (74-99) mg/dL Plasma Lactic Acid Aurelio (0.7-2.0) mmol/L Calcium (8.4-10.2) mg/dL Total Bilirubin (0.2-1.3) mg/dL AST (14-36) U/L ALT (4-34) U/L Alkaline Phosphatase (38-126) U/L Total Protein (6.3-8.2) g/dL Albumin (3.5-5.0) g/dL Amylase (30-110) U/L Lipase (23-300) U/L Coronavirus (PCR) Not Detected (Not Detectd) Disposition Clinical Impression: Pancreatitis Disposition: ADMITTED IP TO THIS [facility] Decision Date: 04/08/21 Decision Time: 22:23
[2021-04-08] MEDS ORDERED: ONDANSETRON 4 MG/2 ML VIAL IVP STA (21:23)
[2021-04-08 21:45] LABS: ALT 18 U/L (4-34); AST 43 U/L (14-36); African American GFR (CKD) >90 (>60 ml/min/1.73 sqM); Albumin 3.2 g/dL (3.5-5.0); Alkaline Phosphatase 81 U/L (38-126); Amylase 54 U/L (30-110); Anion Gap 9 mmol/L; Blood Urea Nitrogen 5 mg/dL (7-17); Calcium 9.7 mg/dL (8.4-10.2); Carbon Dioxide 20 mmol/L (22-30); Chloride 108 mmol/L (98-107); Glucose 125 mg/dL (74-99); Lipase 1819 U/L (23-300); Non-African American GFR(CKD) >90 (>60 ml/min/1.73 sqM); Potassium 3.8 mmol/L (3.5-5.1); Sodium 137 mmol/L (137-145); Total Bilirubin 0.4 mg/dL (0.2-1.3); Total Protein 6.3 g/dL (6.3-8.2)
[2021-04-08 22:11] LABS: Basophils % (A) 1 %; Eosinophils # (A) 0.1 k/uL (0-0.7); Eosinophils % (A) 3 %; HCT 35.7 % (34.0-46.0); HGB 11.8 gm/dL (11.4-16.0); Lymphocytes # (A) 1.4 k/uL (1.0-4.8); Lymphocytes % (A) 38 %; MCHC 32.9 g/dL (31.0-37.0); MCV 94.1 fL (80.0-100.0); Mean Platelet Volume 7.8; Monocytes # (A) 0.2 k/uL (0-1.0); Monocytes % (A) 4 %; Neutrophils # (A) 1.9 k/uL (1.3-7.7); Neutrophils % (A) 53 %; Platelet Count 223 k/uL (150-450); RBC 3.79 m/uL (3.80-5.40); WBC 3.6 k/uL (3.8-10.6)
[2021-04-08] MEDS ORDERED: NALOXONE 0.4 MG/ML 1 ML VIAL IV PRN (22:24)
[2021-04-08] MEDS ORDERED: FAMOTIDINE 20 MG/2 ML VIAL IV STA (22:34)
[2021-04-08] MEDS: SODIUM CHLORIDE 0.9% 1,000 ML IV SCH (23:04)
[2021-04-09] MEDS: HYDROmorphone 0.5 MG/0.5 ML SYRINGE IVP PRN ×6 (01:34→23:05)
[2021-04-09] MEDS: SODIUM CHLORIDE 0.9% 1,000 ML IV SCH ×4 (09:28→23:06)
[2021-04-09] MEDS: ONDANSETRON 4 MG/2 ML VIAL IVP PRN (10:52)
[2021-04-09] MEDS: diphenhydrAMINE 50 MG/ML 1 ML VIAL IVP PRN ×2 (12:29→19:36)
--- NOTE | 2021-04-09 12:46 | HP ---
HISTORY AND PHYSICAL DATE OF SERVICE: 04/09/2021 CHIEF COMPLAINT: Abdominal pain. HISTORY OF PRESENT ILLNESS: This 30-year-old woman with a past medical history of multiple medical problems, including asthma, diabetes mellitus, GERD, being followed by Dr. Mayes in the outpatient setting, had multiple admissions for pancreatitis. Pancreatitis is thought to be secondary to hypertriglyceridemia. Patient was recently admitted to [facility]. Subsequently patient was admitted to [facility] and discharged. Subsequently patient presented to [facility] and referred to [facility], and subsequently presented again to [facility] and was admitted for further evaluation. Patient is complaining of upper abdominal pain which is radiating to the back. Amylase is 54, lipase elevated at 1819. Patient admitted for further evaluation and treatment. There is no history of any fever, rigor or chills at this time. PAST MEDICAL HISTORY: History of recurrent pancreatitis, history of asthma, diabetes mellitus, GERD, hyperlipidemia. MEDICATIONS: Medications prior to admission include Topamax, Desyrel, Seroquel, Inderal, Protonix, melatonin, fenofibrate, Lexapro and Tylenol. Doses are reviewed. ALLERGIES: MULTIPLE ALLERGIES INCLUDE BEE POLLEN, HALOPERIDOL, LATEX, DURAN, COCONUT, PINEAPPLE, PREDNISONE, SPIDER VENOM, SULFA, PHENOTHIAZINE, ULTRAM, AMOXICILLIN AND ANTS. FAMILY HISTORY: No history of heart disease. History of migraines in the family. SOCIAL HISTORY: No history of smoking. History of vaping. History of THC. REVIEW OF SYSTEMS: ENT: No diminished hearing. No diminished vision. CARDIOVASCULAR SYSTEM: No angina, palpitations. RESPIRATORY SYSTEM: No cough, hemoptysis. GI: As mentioned earlier. : No dysuria. NERVOUS SYSTEM: No numbness, weakness. ALLERGY/IMMUNOLOGY: No asthma or hay fever. MUSCULOSKELETAL: As mentioned earlier. HEMATOLOGY/ONCOLOGY: No history of anemia. ENDOCRINE: No history of diabetes or hypothyroidism. CONSTITUTIONAL: As mentioned earlier. DERMATOLOGY: Negative. RHEUMATOLOGY: Negative. PSYCHIATRY: As mentioned earlier. PHYSICAL EXAMINATION: Patient is alert, oriented x3. Pulse is 92, blood pressure 126/82, respiration 18, temperature 97.9, pulse ox 99% on room air. HEENT: Conjunctivae normal. NECK: No jugular venous distention. CARDIOVASCULAR: S1, S2 muffled. RESPIRATION: Breath sounds diminished at the bases. A few scattered rhonchi. ABDOMEN: Soft. Mild diffuse tenderness in the upper abdomen. No guarding. No rigidity. No mass palpable. No ascites. LEGS: No edema. No swelling. NERVOUS SYSTEM: Higher functions as mentioned earlier. Moves all 4 limbs. No focal motor or sensory deficit. LYMPHATICS: No lymph node palpable in neck, axillae or groin. SKIN: No ulcer, rash, bleeding. JOINTS: No active deforming arthropathy. LABS: WBC 3.6, hemoglobin 11.3, sodium 137, potassium 3.8, and lipase is 1819. ASSESSMENT: 1. Upper abdominal pain with acute pancreatitis. 2. History of multiple acute pancreatitis hospital admissions. 3. Hypertriglyceridemia history. 4. Decreased carbon dioxide. 5. Leukopenia, mild. 6. History of asthma, chronic intermittent. 7. Diabetes mellitus, type 2. 8. History of gastroesophageal reflux disease. 9. History of migraines. 10.History of degenerative joint disease. 11.History of lupus. 12.History of endometriosis. 13.History of pancreatitis. 14.History of laparoscopic surgery for endometriosis. 15.History of anxiety, depression, posttraumatic stress disorder. 16.Obesity with body mass index of 36.9. 17.FULL CODE. RECOMMENDATIONS AND DISCUSSION: I recommend to continue current medications, continue with the monitoring, symptomatic treatment. Continue the pain medication. IV Protonix. DVT prophylaxis. Resume the home medications. Guarded prognosis because of multiple complex medical issues. Further recommendations to follow. The patient has been followed by GI in the outpatient setting and we will consult GI as well if available. MMODL / IJN: [id number] /
[2021-04-09 21:12] LABS: Glucose,Whole Blood 109 mg/dL (75-99)
[2021-04-09] MEDS: INSULIN ASPART (NovoLOG) 100 UNIT/ML VIAL SQ SCH (21:13)
[2021-04-09] MEDS: QUEtiapine 100 MG TAB PO SCH (21:15)
[2021-04-09] MEDS: FENOFIBRATE 160 MG TAB PO SCH (21:15)
[2021-04-09] MEDS: TOPIRAMATE 100 MG TAB PO SCH (21:15)
[2021-04-09] MEDS: ESCITALOPRAM 10 MG TAB PO SCH (21:15)
[2021-04-09] MEDS: MELATONIN 3 MG TABLET PO SCH (21:15)
[2021-04-09] MEDS: traZODone HCL 100 MG TAB PO SCH (21:15)
[2021-04-09] MEDS: PROPRANOLOL 10 MG TAB PO SCH (21:15)
[2021-04-10] MEDS: diphenhydrAMINE 50 MG/ML 1 ML VIAL IVP PRN ×4 (01:19→20:10)
[2021-04-10] MEDS: HYDROmorphone 0.5 MG/0.5 ML SYRINGE IVP PRN ×6 (03:06→21:53)
[2021-04-10 06:04] LABS: Basophils % (A) 1 %; Eosinophils # (A) 0.2 k/uL (0-0.7); Eosinophils % (A) 4 %; HCT 42.3 % (34.0-46.0); HGB 13.4 gm/dL (11.4-16.0); Hypochromasia Slight; Lymphocytes # (A) 2.7 k/uL (1.0-4.8); Lymphocytes % (A) 59 %; MCH 30.8 pg (25.0-35.0); MCHC 31.8 g/dL (31.0-37.0); MCV 96.7 fL (80.0-100.0); Mean Platelet Volume 7.8; Monocytes # (A) 0.2 k/uL (0-1.0); Monocytes % (A) 4 %; Neutrophils # (A) 1.4 k/uL (1.3-7.7); Neutrophils % (A) 31 %; Platelet Count 224 k/uL (150-450); RBC 4.37 m/uL (3.80-5.40); RDW 15.2 % (11.5-15.5); WBC 4.6 k/uL (3.8-10.6)
[2021-04-10] MEDS: ONDANSETRON 4 MG/2 ML VIAL IVP PRN (06:07)
[2021-04-10 07:20] LABS: Glucose,Whole Blood 102 mg/dL (75-99)
[2021-04-10] MEDS: INSULIN ASPART (NovoLOG) 100 UNIT/ML VIAL SQ SCH ×4 (07:48→22:27)
[2021-04-10] MEDS: PANTOPRAZOLE 40 MG TABLET PO SCH (07:54)
[2021-04-10] MEDS: PROPRANOLOL 10 MG TAB PO SCH ×2 (07:55→22:24)
[2021-04-10] MEDS: TOPIRAMATE 100 MG TAB PO SCH ×2 (07:55→22:24)
[2021-04-10 09:41] LABS: African American GFR (CKD) 135.7 (60.0-200.0); Albumin 3.9 g/dL (3.8-4.9); Albumin/Globulin Ratio 1.44 (1.60-3.17); Anion Gap 10.1 mmol/L (10.00-18.00); BUN/Creat Ratio 3.57 Ratio (12.00-20.00); Blood Urea Nitrogen 2.5 mg/dL (9.0-27.0); Carbon Dioxide 19.9 mmol/L (20.0-27.5); Globulin 2.7 g/dL (1.6-3.3); Non-African American GFR(CKD) 117.1 (60.0-200.0); Potassium 3.8 mmol/L (3.5-5.5); Total Bilirubin 0.3 mg/dL (0.30-1.20); Total Protein 6.6 g/dL (6.2-8.2)
[2021-04-10 10:08] LABS: Chol/HDL Ratio 7.99 Ratio; HDL Cholesterol 30.3 mg/dL (40.00-60.00)
[2021-04-10 12:31] LABS: Glucose,Whole Blood 102 mg/dL (75-99)
[2021-04-10] MEDS: SODIUM CHLORIDE 0.9% 1,000 ML IV SCH ×2 (13:54→20:12)
[2021-04-10 15:54] LABS: Anti-DNA, DS unit <1.0 IU/mL; Anti-Smith Ab Interp NEGATIVE (NEGATIVE); DNA Double-Stranded NEGATIVE (NEGATIVE)
[2021-04-10 17:24] LABS: Glucose,Whole Blood 106 mg/dL (75-99)
--- NOTE | 2021-04-10 19:35 | PN ---
PROGRESS NOTE DATE OF SERVICE: 04/10/2021 This 30-year-old woman who was admitted with acute recurrent pancreatitis is being closely monitored at this time. The patient has history of lupus apparently. MAMTA is positive. The patient had lipase 283. The patient had hypertriglyceridemia as well. The titers are not available. No chest pain. No palpitations. No fever. antibodies are pending at this time. PHYSICAL EXAMINATION: Alert and oriented x3. Pulse is 63, blood pressure 100/60, respirations 16, temperature 97.4, pulse ox 96% on room air. HEENT: Conjunctivae normal. NECK: No jugular venous distention. CARDIOVASCULAR: S1, S2 muffled. RESPIRATION: Breath sounds diminished at the bases. A few scattered rhonchi. ABDOMEN: Soft. NERVOUS SYSTEM: No focal deficit. LABS: CBC within normal limits. Sodium 136. Potassium 3.8. ASSESSMENT: 1. Upper abdominal pain with acute severe pancreatitis. 2. History of multiple acute pancreatitis and hospital admissions. 3. Hypertriglyceridemia. 4. Decreased CO2. 5. Leukopenia, mild. 6. Elevated MAMTA. 7. History of asthma, chronic intermittent. 8. Diabetes mellitus, type 2. 9. History of gastroesophageal reflux disease. 10.History of migraine. 11.History of degenerative joint disease. 12.History of lupus. 13.History of endometriosis. 14.History of pancreatitis. 15.History of laparoscopic surgery for endometriosis. 16.History of anxiety, depression, posttraumatic stress disorder. 17.Obesity with body mass index of 36.9. 18.FULL CODE. RECOMMENDATIONS AND DISCUSSION: I recommend to continue current medications, continue with the monitoring, symptomatic treatment. Dietary modification is important in this case. We will continue to monitor. Further recommendations to follow. MMODL / IJN: [id number] / BEL
[2021-04-10 21:49] LABS: Glucose,Whole Blood 138 mg/dL (75-99)
[2021-04-10] MEDS: ESCITALOPRAM 10 MG TAB PO SCH (22:23)
[2021-04-10] MEDS: FENOFIBRATE 160 MG TAB PO SCH (22:24)
[2021-04-10] MEDS: traZODone HCL 100 MG TAB PO SCH (22:24)
[2021-04-10] MEDS: QUEtiapine 100 MG TAB PO SCH (22:24)
[2021-04-10] MEDS: MELATONIN 3 MG TABLET PO SCH (22:24)
[2021-04-11] MEDS: diphenhydrAMINE 50 MG/ML 1 ML VIAL IVP PRN ×3 (01:50→14:48)
[2021-04-11] MEDS: HYDROmorphone 0.5 MG/0.5 ML SYRINGE IVP PRN ×5 (01:50→15:42)
[2021-04-11] MEDS: SODIUM CHLORIDE 0.9% 1,000 ML IV SCH (04:47)
[2021-04-11 07:27] LABS: Glucose,Whole Blood 88 mg/dL (75-99)
[2021-04-11] MEDS: INSULIN ASPART (NovoLOG) 100 UNIT/ML VIAL SQ SCH ×2 (07:45→13:14)
[2021-04-11] MEDS: PANTOPRAZOLE 40 MG TABLET PO SCH (08:42)
[2021-04-11] MEDS: PROPRANOLOL 10 MG TAB PO SCH (08:45)
[2021-04-11] MEDS: TOPIRAMATE 100 MG TAB PO SCH (08:45)
[2021-04-11 11:54] LABS: Glucose,Whole Blood 135 mg/dL (75-99)
[2021-04-11 12:31] VITALS: BP 99/66; PULSE 71; RESP 16; TEMP 98.6
[2021-04-11 14:24] VITALS: BMI 36.8
--- NOTE | 2021-04-11 19:48 | DS ---
DISCHARGE SUMMARY DATE OF SERVICE: 04/11/2021 FINAL DIAGNOSES: 1. Acute upper abdominal pain, acute pancreatitis. 2. History of multiple acute pancreatitis and hospital admissions previously. 3. Hypertriglyceridemia. 4. Decreased CO2. 5. Leukopenia, mild. 6. Elevated MAMTA. 7. History of asthma, chronic, intermittent. 8. Diabetes mellitus, type 2. 9. History of gastroesophageal reflux disease. 10.History of migraine. 11.History of DJD. 12.History of lupus. 13.History of endometriosis. 14.History of pancreatitis. 15.History of laparoscopic surgery for endometriosis. 16.History of anxiety, depression, PTSD. 17.Obesity with body mass index of 36.9. 18.FULL CODE. DISCHARGE DISPOSITION: The patient discharged in stable condition and guarded prognosis. HISTORY OF PRESENT ILLNESS: This 30-year-old woman with a past medical history of multiple medical problems was admitted with acute severe pancreatitis. The patient had acute pancreatitis, possibly due to hypertriglyceridemia. Patient treated symptomatically, improved significantly. Patient discharged home in stable condition with guarded prognosis. The patient also had positive MAMTA, recommend rheumatology evaluation. On exam, vitals are stable. Cardiovascular: S1, S2. Abdomen soft. Nervous system: No focal weakness. Discharge diet is soft, low-fat. Activity limited until followup. Follow up with Dr. Mayes in 2-3 days. Follow up with Dr. Baugh in one week. DISCHARGE MEDICATIONS: 1. Fenofibrate 140 mg q.h.s. 2. Seroquel 300 mg q.h.s. 3. Topamax 100 mg p.o. b.i.d. 4. Desyrel 100 mg p.o. q.h.s. 5. Medrol 10 mg p.o. b.i.d. 6. Lexapro 10 mg q.h.s. 7. Melatonin 3 mg q.h.s. 8. [place] 5 mg q.6 p.r.n. 9. Protonix 40 mg p.o. daily. 10.Tylenol p.r.n. MMDERICKL / DORINDAN: [id number] /
[2021-04-15 12:48] LABS: ANA Pattern Speckled
== END 2021-04-11 16:38 | disposition home or self-care (01) | DRG 440 ==
LOC: EC 18:01 → 5NMEDONC 22:44 → OBSVTOIN 04-11 07:25
PROVIDERS: ADMIT Hospitalist; ATTEND Hospitalist
DX: K85.90 Acute pancreatitis without necrosis or infection, unspecified (principal); K21.9 Gastro-esophageal reflux disease without esophagitis; K86.1 Other chronic pancreatitis; D72.819 Decreased white blood cell count, unspecified; E11.9 Type 2 diabetes mellitus without complications; E66.9 Obesity, unspecified; E78.1 Pure hyperglyceridemia; E78.5 Hyperlipidemia, unspecified; F43.10 Post-traumatic stress disorder, unspecified; J45.909 Unspecified asthma, uncomplicated; Z68.36 Body mass index [BMI] 36.0-36.9, adult; Z82.49 Family history of ischemic heart disease and other diseases of the circulatory system; Z91.030 Bee allergy status; Z91.040 Latex allergy status; Z91.018 Allergy to other foods; Z88.0 Allergy status to penicillin; Z88.2 Allergy status to sulfonamides; Z88.8 Allergy status to other drugs, medicaments and biological substances; Z91.048 Other nonmedicinal substance allergy status; Z79.899 Other long term (current) drug therapy
CPT/HCPCS: 36415; 80053; 80061; 82150; 83605; 83690; 83721; 85025; 85652; 86038; 86039; 86140; 86225; 86235; 87635; 96361; 96374; 96375; 96376; 99284

== ENCOUNTER 2021-04-26 09:28 | Inpatient (IN) | payer OTHER ==
[2021-04-26] MEDS ORDERED: MORPHINE SULFATE 4 MG/ML SYRINGE IV STA ×2 (09:46→11:55)
[2021-04-26] MEDS ORDERED: ONDANSETRON 4 MG/2 ML VIAL IVP STA (09:46)
[2021-04-26] MEDS ORDERED: SODIUM CHLORIDE 0.9% 1,000 ML IV STA (09:46)
[2021-04-26 10:51] LABS: Basophils % (A) 0 %; Eosinophils % (A) 1 %; HCT 42.5 % (34.0-46.0); HGB 13.7 gm/dL (11.4-16.0); Lymphocytes # (A) 0.6 k/uL (1.0-4.8); Lymphocytes % (A) 11 %; MCH 30.5 pg (25.0-35.0); MCHC 32.3 g/dL (31.0-37.0); MCV 94.4 fL (80.0-100.0); Mean Platelet Volume 8.7; Monocytes # (A) 0.3 k/uL (0-1.0); Monocytes % (A) 5 %; Neutrophils # (A) 4.2 k/uL (1.3-7.7); Neutrophils % (A) 81 %; Platelet Count 217 k/uL (150-450); RDW 14.7 % (11.5-15.5); WBC 5.2 k/uL (3.8-10.6)
--- NOTE | 2021-04-26 10:59 | ED ---
Abdominal Pain HPI - General Chief Complaint: Abdominal Pain Stated Complaint: Abd pain, nausea Time Seen by Provider: 04/26/21 09:30 Source: patient, RN notes reviewed Mode of arrival: EMS Limitations: no limitations - History of Present Illness Initial Comments: This is a pleasant 30-year-old female with a history of chronic and recurrent ab dominal pain. Other past medical history as listed and reviewed. Presents to the emergency department today complaining of abdominal pain which started this morning. Constant, sharp epigastric abdominal pain with associated nausea and vomiting. No hematemesis or coffee-ground emesis. She denies any change in bowel movements. No urinary complaints. No chance of . Patient believes she has had a fever and some chills. Denies cough. No sore throat. No headache. no changes in vision or hearing, no sore throat or difficulty with speech, no neck pain, no chest pain or shortness of breath,, no changes in urination or bowel movements, no numbness or tingling, no extremity pain, no skin rashes or lesions. MD Complaint: abdominal pain - Related Data Home Medications Medication Instructions Recorded Confirmed QUEtiapine FUMARATE [SEROquel] 300 mg PO HS 04/08/21 04/26/21 Previous Rx's Medication Instructions Recorded traZODone HCL [Desyrel] 100 mg PO HS 30 Days tab 02/10/21 Allergies Allergy/AdvReac Type Severity Reaction Status Date / Time bee pollen Allergy Severe Anaphylaxis Verified 04/26/21 13:15 haloperidol [From Haldol] Allergy Severe QUIT Verified 04/26/21 13:15 BREATHING haloperidol lactate Allergy Severe QUIT Verified 04/26/21 13:15 [From Haldol] BREATHING latex Allergy Severe RASH-THROAT Verified 04/26/21 13:15 CLOSES [place] Allergy Anaphylaxis Verified 04/26/21 13:15 coconut Allergy Anaphylaxis Verified 04/26/21 13:15 pineapple Allergy Anaphylaxis Verified 04/26/21 13:15 prednisone Allergy THROAT Verified 04/26/21 13:15 SWELLS spider venom Allergy Swelling Verified 04/26/21 13:15 Sulfa (Sulfonamide Allergy THROAT Verified 04/26/21 13:15 Antibiotics) SWELLS venom-wasp Allergy Swelling Verified 04/26/21 13:15 venom-wasp protein Allergy Swelling Verified 04/26/21 13:15 promethazine HCl AdvReac Severe Nausea & Verified 04/26/21 13:15 [From Phenergan] Vomiting tramadol AdvReac Severe Nausea & Verified 04/26/21 13:15 Vomiting amoxicillin AdvReac Nausea & Verified 04/26/21 13:15 Vomiting ANTS AdvReac Mild Anaphylaxis Uncoded 04/08/21 23:14 Review of Systems ROS Statement: Those systems with pertinent positive or pertinent negative responses have been documented in the HPI. ROS Other: All systems not noted in ROS Statement are negative. Past Medical History Past Medical History: Asthma, Diabetes Mellitus, GERD/Reflux Additional Past Medical History / Comment(s): migraines, degenerative disk disease, endometriosis, lupus, pancreatitis History of Any Multi-Drug Resistant Organisms: None Reported Past Surgical History: Orthopedic Surgery Additional Past Surgical History / Comment(s): laparoscopc surgery for endometriosis, cyst removed from left foot, EGD, Past Anesthesia/Blood Transfusion Reactions: Previous Problems w/ Anesthesia Additional Past Anesthesia/Blood Transfusion Reaction / Comment(s): hard to wake up for 48-72 hours after laparoscopic surgery-was in hosp. for 3 days Past Psychological History: Anxiety, Depression, PTSD Smoking Status: Never smoker Past Alcohol Use History: None Reported Past Drug Use History: Marijuana - Past Family History Mother Family Medical History: No Reported History Additional Family Medical History / Comment(s): hx migraines Father Family Medical History: Coronary Artery Disease (CAD), Hypertension Additional Family Medical History / Comment(s): ddd, alcoholism & drug use General Exam Limitations: no limitations General appearance: alert, in distress Head exam: Present: atraumatic, normocephalic, normal inspection Eye exam: Present: normal appearance, PERRL, EOMI. Absent: scleral icterus, conjunctival injection, periorbital swelling ENT exam: Present: normal exam, mucous membranes moist Neck exam: Present: normal inspection. Absent: tenderness, meningismus, lymphadenopathy Respiratory exam: Present: normal lung sounds bilaterally. Absent: respiratory distress, wheezes, rales, rhonchi, stridor Cardiovascular Exam: Present: normal rhythm, tachycardia, normal heart sounds. Absent: systolic murmur, diastolic murmur, rubs, gallop, clicks GI/Abdominal exam: Present: soft, tenderness, guarding, normal bowel sounds, other (Epigastric tenderness). Absent: distended, rebound, rigid, organomegaly, mass, bruit, pulsatile mass, hernia Expanded GI/Abdominal exam: Absent: psoas sign, obturator sign, tenderness at McBurney's Point Rectal exam: Present: deferred Extremities exam: Present: normal inspection, full ROM, normal capillary refill. Absent: tenderness, pedal edema, joint swelling, calf tenderness Back exam: Present: normal inspection Neurological exam: Present: alert, oriented X3, CN II-XII intact Psychiatric exam: Present: normal affect, normal mood Skin exam: Present: warm, dry, intact, normal color. Absent: rash Course Vital Signs 04/26/21 04/26/21 04/26/21 09:31 10:56 14:20 Temperature 100.4 F H 100.0 F H Pulse Rate 119 H 115 H Pulse Rate [ 105 H Pulse Oximetery ] Respiratory 18 18 17 Rate Blood Pressure 143/92 98/79 Blood Pressure 111/78 [Left Arm] O2 Sat by Pulse 97 94 L 96 Oximetry - Reevaluation(s) Reevaluation #1: 04/26/21 11:35 Patient was reevaluated. Patient better after pain medication. Patient is requesting psychiatric evaluation. Patient states that her depression is worse than usual. No definitive suicidal ideation. Medical Decision Making - Medical Decision Making Case discussed in detail with the on-call hospitalist physician, Dr. Leblanc. Patient will be admitted to the hospital for exacerbation of chronic pancreatitis. Patient will also be treated for COVID-19. Patient is not being admitted specifically for COVID-19. Will order the monoclonal antibody. Ultrasound pending at time of admission. The case was discussed in detail with ED attending physician. Presentation, findings, treatment plan discussed in detail. - Lab Data Result diagrams: 04/26/21 10:12 04/26/21 10:12 Lab Results 04/26/21 04/26/21 04/26/21 Range/Units 10:12 10:12 10:12 WBC 5.2 (3.8-10.6) k/uL RBC 4.50 (3.80-5.40) m/uL Hgb 13.7 (11.4-16.0) gm/dL Hct 42.5 (34.0-46.0) % MCV 94.4 (80.0-100.0) fL MCH 30.5 (25.0-35.0) pg MCHC 32.3 (31.0-37.0) g/dL RDW 14.7 (11.5-15.5) % Plt Count 217 (150-450) k/uL MPV 8.7 Neutrophils % 81 % Lymphocytes % 11 % Monocytes % 5 % Eosinophils % 1 % Basophils % 0 % Neutrophils # 4.2 (1.3-7.7) k/uL Lymphocytes # 0.6 L (1.0-4.8) k/uL Monocytes # 0.3 (0-1.0) k/uL Eosinophils # 0.0 (0-0.7) k/uL Basophils # 0.0 (0-0.2) k/uL Sodium (137-145) mmol/L Potassium (3.5-5.1) mmol/L Chloride (98-107) mmol/L Carbon Dioxide (22-30) mmol/L Anion Gap mmol/L BUN (7-17) mg/dL Creatinine (0.52-1.04) mg/dL Est GFR (CKD-EPI)AfAm (>60 ml/min/1.73 sqM) Est GFR (CKD-EPI)NonAf (>60 ml/min/1.73 sqM) Glucose (74-99) mg/dL Plasma Lactic Acid Aurelio (0.7-2.0) mmol/L Calcium (8.4-10.2) mg/dL Total Bilirubin (0.2-1.3) mg/dL AST (14-36) U/L ALT (4-34) U/L Alkaline Phosphatase (38-126) U/L Total Protein (6.3-8.2) g/dL Albumin (3.5-5.0) g/dL Amylase (30-110) U/L Lipase (23-300) U/L Urine Color Yellow Urine Appearance Clear (Clear) Urine pH 7.0 (5.0-8.0) Ur Specific [place] 1.010 (1.001-1.035) Urine Protein Negative (Negative) Urine Glucose (UA) 1+ H (Negative) Urine Ketones Negative (Negative) Urine Blood Negative (Negative) Urine Nitrite Negative (Negative) Urine Bilirubin Negative (Negative) Urine Urobilinogen <2.0 (<2.0) mg/dL Ur Leukocyte Esterase Negative (Negative) Urine HCG, Qual Not Detected (Not Detectd) Coronavirus (PCR) (Not Detectd) 04/26/21 04/26/21 04/26/21 Range/Units 10:12 10:12 10:12 WBC (3.8-10.6) k/uL RBC (3.80-5.40) m/uL Hgb (11.4-16.0) gm/dL Hct (34.0-46.0) % MCV (80.0-100.0) fL MCH (25.0-35.0) pg MCHC (31.0-37.0) g/dL RDW (11.5-15.5) % Plt Count (150-450) k/uL MPV Neutrophils % % Lymphocytes % % Monocytes % % Eosinophils % % Basophils % % Neutrophils # (1.3-7.7) k/uL Lymphocytes # (1.0-4.8) k/uL Monocytes # (0-1.0) k/uL Eosinophils # (0-0.7) k/uL Basophils # (0-0.2) k/uL Sodium 140 (137-145) mmol/L Potassium 4.1 (3.5-5.1) mmol/L Chloride 111 H (98-107) mmol/L Carbon Dioxide 21 L (22-30) mmol/L Anion Gap 8 mmol/L BUN 7 (7-17) mg/dL Creatinine 0.83 (0.52-1.04) mg/dL Est GFR (CKD-EPI)AfAm >90 (>60 ml/min/1.73 sqM) Est GFR (CKD-EPI)NonAf >90 (>60 ml/min/1.73 sqM) Glucose 147 H (74-99) mg/dL Plasma Lactic Acid Aurelio 1.5 (0.7-2.0) mmol/L Calcium 10.8 H (8.4-10.2) mg/dL Total Bilirubin 0.8 (0.2-1.3) mg/dL AST 32 (14-36) U/L ALT 22 (4-34) U/L Alkaline Phosphatase 73 (38-126) U/L Total Protein 7.7 (6.3-8.2) g/dL Albumin 4.1 (3.5-5.0) g/dL Amylase 54 (30-110) U/L Lipase 1207 H (23-300) U/L Urine Color Urine Appearance (Clear) Urine pH (5.0-8.0) Ur Specific [place] (1.001-1.035) Urine Protein (Negative) Urine Glucose (UA) (Negative) Urine Ketones (Negative) Urine Blood (Negative) Urine Nitrite (Negative) Urine Bilirubin (Negative) Urine Urobilinogen (<2.0) mg/dL Ur Leukocyte Esterase (Negative) Urine HCG, Qual (Not Detectd) Coronavirus (PCR) Detected A (Not Detectd) Disposition Clinical Impression: Chronic pancreatitis, COVID-19 Disposition: ADMITTED IP TO THIS [facility] Condition: Stable Decision to Admit Reason: Admit from EC Decision Time: 12:17
[2021-04-26 11:01] LABS: ALT 22 U/L (4-34); AST 32 U/L (14-36); African American GFR (CKD) >90 (>60 ml/min/1.73 sqM); Albumin 4.1 g/dL (3.5-5.0); Alkaline Phosphatase 73 U/L (38-126); Amylase 54 U/L (30-110); Anion Gap 8 mmol/L; Blood Urea Nitrogen 7 mg/dL (7-17); Calcium 10.8 mg/dL (8.4-10.2); Carbon Dioxide 21 mmol/L (22-30); Chloride 111 mmol/L (98-107); Glucose 147 mg/dL (74-99); Lipase 1207 U/L (23-300); Non-African American GFR(CKD) >90 (>60 ml/min/1.73 sqM); Potassium 4.1 mmol/L (3.5-5.1); Sodium 140 mmol/L (137-145); Total Bilirubin 0.8 mg/dL (0.2-1.3); Total Protein 7.7 g/dL (6.3-8.2)
[2021-04-26] MEDS ORDERED: diphenhydrAMINE 50 MG/ML 1 ML VIAL IVP STA (11:01)
[2021-04-26] MEDS ORDERED: SODIUM CHLORIDE 0.9% 500 ML 1,000 ML IV STA (11:19)
--- NOTE | 2021-04-26 11:47 | XR ---
EXAMINATION TYPE: XR abdomen acute w cxr DATE OF EXAM: 04/26/2021 COMPARISON: NONE HISTORY: Abdominal pain TECHNIQUE: Supine, upright, and left side down lateral decubitus views of the abdomen are obtained. FINDINGS: The lung bases are clear. There is no evidence for pneumoperitoneum. The bowel gas pattern is unremarkable as there is air throughout nondilated small and large bowel. No sizeable air fluid levels. No mass effects are seen. No unusual calcifications. IMPRESSION: Unremarkable study
[2021-04-26] MEDS ORDERED: LORazepam 2 MG/ML INJ IV PRN (12:18)
[2021-04-26] MEDS ORDERED: NALOXONE 0.4 MG/ML 1 ML VIAL IV PRN (12:18)
[2021-04-26] MEDS ORDERED: LORazepam 2 MG/ML INJ IV STA (12:29)
[2021-04-26] MEDS ORDERED: SODIUM CHLORIDE 0.9% 50 ML IVPB ONE (13:00)
[2021-04-26] MEDS ORDERED: BAMLANIVIMAB (EUA) 700 MG, ETESEVIMAB (EUA) 1,400 MG in SODIUM CHLORIDE 0.9% 100 ML IVPB ONE (13:00)
--- NOTE | 2021-04-26 15:09 | HP ---
HISTORY AND PHYSICAL DATE OF SERVICE: 04/26/2021 CHIEF COMPLAINT: Abdominal pain. HISTORY OF PRESENT ILLNESS: This 30-year-old woman with a past medical history of asthma, diabetes, GERD, , being followed by Dr. Mayes in the outpatient setting has had multiple hospital admissions related to acute pancreatitis. Most recently, the patient was hospitalized for pancreatitis in [facility] for 12 days according to her. The patient underwent multiple CT scans and there was no answer according to her. The patient had hypertriglyceridemia leading to acute pancreatitis. Currently, the patient came to [facility]. Patient had epigastric pain which was radiating to the back and there was also some nausea, vomiting. Lipase is elevated at 1207. Covid 19 was also positive and the patient admitted to the hospital for further evaluation and treatment. There is no history of fever, rigors or chills. No history of headache, loss of consciousness, seizures. The patient is not having hypoxia. The patient is afebrile. PAST MEDICAL HISTORY: History of recurrent pancreatitis, history of asthma, diabetes, GERD, history of migraines. HOME MEDICATIONS: Reviewed and include: Trazodone and Seroquel. ALLERGIES: MULTIPLE ALLERGIES: BEE POLLEN, HALOPERIDOL, LATEX, FORREST CLOTH, PINEAPPLE, PREDNISONE, SPIDER VENOM, SULFA, PROMETHAZINE, ULTRAM, AMOXICILLIN AND ANTS. FAMILY HISTORY: No history of heart disease. History of migraines in the family. SOCIAL HISTORY: History of THC, history of vaping. REVIEW OF SYSTEMS: ENT: No diminished vision. No diminished hearing. CARDIOVASCULAR as mentioned earlier. RESPIRATORY: As mentioned earlier. GI: As mentioned earlier. no dysuria. NERVOUS SYSTEM: No numbness or weakness. ALLERGY/IMMUNOLOGY: As mentioned earlier. HEMATOLOGY/ONCOLOGY: No history of anemia. ENDOCRINE: As mentioned earlier. CONSTITUTIONAL: As mentioned earlier. DERMATOLOGY: Negative. RHEUMATOLOGY: Negative. PSYCHIATRIC: As mentioned earlier. PHYSICAL EXAMINATION: Alert and oriented times three. Pulse is 119, blood pressure 143/92, respiration 18, temperature 100.4, pulse ox 97% on room air. HEENT: Conjunctivae normal. NECK: No JVD. CARDIOVASCULAR: S1, S2 normal. RESPIRATORY: Breath sounds diminished in the bases. No rhonchi. No crackles. ABDOMEN: Soft. Mild diffuse tenderness in the epigastrium. No guarding or rigidity. No mass palpable. No ascites. Bowel sounds present. LEGS: No edema. No swelling. NERVOUS SYSTEM: Higher functions as mentioned earlier. Moves all four limbs. No focal deficits. LYMPHATICS: No lymph nodes palpable in the neck, axillae or groin. SKIN: No ulcer, no rash and no bleeding. JOINTS: No active deforming arthropathy. LABS: WBC 5.8, hemoglobin 13.7. are 0.6 and glucose 147, calcium is 10.8, lipase is 1207. ASSESSMENT: 1. Acute severe pancreatitis with severe abdominal pain, nausea, vomiting, possibility of gastritis. 2. Acute Covid 19 infection. 3. Lymphopenia. 4. Elevated lipase. 5. History of recurrent pancreatitis secondary to hypertriglyceridemia. 6. History of asthma, chronic, intermittent. 7. Diabetes mellitus, type 2. 8. Gastroesophageal reflux disease. 9. History of migraines. 10.History endometriosis. 11.History of lupus. 12.History of degenerative joint disease. 13.History of laparoscopic surgery for endometriosis. 14.History of multiple hospital admissions for pancreatitis. 15.History of anxiety, depression, PTSD. 16.Obesity with body mass 36.7. 17.FULL CODE. RECOMMENDATIONS AND DISCUSSION: This 30-year-old woman who presented with multiple complex medical issues, we will monitor the patient closely. We will treat the patient symptomatically. Protonix and empiric antibiotics. Infectious disease evaluation. We will also recommend inflammatory markers of Covid 19. The prognosis guarded because of the multiple complex medical issues. Further recommendations to follow. See orders for details. MMODL / IJN: [id number] / MTDD
[2021-04-26 15:36] LABS: Appearance,Urine Clear (Clear); Bilirubin,Urine Negative (Negative); Blood,Urine Negative (Negative); Color,Urine Yellow; Glucose,Urine (UA) 1+ (Negative); Ketones,Urine Negative (Negative); Leukocyte Esterase,Urine Negative (Negative); Nitrite,Urine Negative (Negative); Protein,Urine Negative (Negative); Urobilinogen,Urine <2.0 mg/dL (<2.0)
[2021-04-26] MEDS: MORPHINE SULFATE 4 MG/ML SYRINGE IV PRN ×2 (15:58→19:49)
[2021-04-26] MEDS: ACETAMINOPHEN TAB 325 MG TAB PO PRN (15:58)
[2021-04-26] MEDS: DEXTROSE 5%-0.45% NACL 1,000 ML IV SCH ×2 (15:59→19:50)
[2021-04-26] MEDS: MEROPENEM 2 GM in SODIUM CHLORIDE 0.9% 100 ML IVPB SCH ×2 (16:00→23:24)
--- NOTE | 2021-04-26 16:00 | US ---
EXAMINATION TYPE: US gallbladder DATE OF EXAM: 04/26/2021 COMPARISON: US 2020 CLINICAL HISTORY: Epigastric abdominal pain. Exam done portable on covid patient EXAM MEASUREMENTS: Liver Length: 15.1 cm Gallbladder Wall: 0.2 cm CBD: 0.4 cm Right Kidney: 9.3 x 5.0 x 5.2 cm Pancreas: obscured by overlying bowel gas Liver: increased echogenicity, mildly heterogeneous Gallbladder: wnl Evidence for sonographic Velasquez's sign: no CBD: wnl Right Kidney: No renal collecting system dilatation or shadowing calculi seen. IMPRESSION: 1. No sonographic evidence for cholelithiasis or acute cholecystitis. 2. Question mild hepatic steatosis.
[2021-04-26 16:47] LABS: Glucose,Whole Blood 103 mg/dL (75-99)
[2021-04-26] MEDS: ONDANSETRON 4 MG/2 ML VIAL IVP PRN (17:38)
[2021-04-26 18:47] LABS: C Reactive Protein 1.6 mg/dL (<1.0)
[2021-04-26] MEDS: traZODone HCL 100 MG TAB PO SCH (19:51)
[2021-04-26 20:32] LABS: Glucose,Whole Blood 127 mg/dL (75-99)
[2021-04-26] MEDS ORDERED: QUEtiapine 100 MG TAB PO SCH (21:00)
[2021-04-26] MEDS ORDERED: SODIUM CHLORIDE 0.65% NASAL SPRAY 44 ML BTL NASAL PRN (21:40)
[2021-04-27] MEDS: MORPHINE SULFATE 4 MG/ML SYRINGE IV PRN ×6 (00:09→20:54)
[2021-04-27] MEDS: ACETAMINOPHEN TAB 325 MG TAB PO PRN ×3 (02:49→18:05)
[2021-04-27 03:43] LABS: Glucose,Whole Blood 132 mg/dL (75-99)
[2021-04-27] MEDS: DEXTROSE 5%-0.45% NACL 1,000 ML IV SCH ×3 (06:48→20:56)
[2021-04-27 07:05] LABS: Glucose,Whole Blood 133 mg/dL (75-99)
[2021-04-27] MEDS: MEROPENEM 2 GM in SODIUM CHLORIDE 0.9% 100 ML IVPB SCH ×3 (07:22→23:37)
[2021-04-27 10:27] LABS: Basophils % (A) 1 %; Eosinophils # (A) 0.1 k/uL (0-0.7); Eosinophils % (A) 1 %; HCT 39.7 % (34.0-46.0); HGB 12.8 gm/dL (11.4-16.0); Hypochromasia Moderate; Lymphocytes # (A) 2.1 k/uL (1.0-4.8); Lymphocytes % (A) 42 %; MCH 32.1 pg (25.0-35.0); MCHC 32.1 g/dL (31.0-37.0); Macrocytosis Slight; Mean Platelet Volume 8.1; Monocytes # (A) 0.3 k/uL (0-1.0); Monocytes % (A) 6 %; Neutrophils # (A) 2.3 k/uL (1.3-7.7); Neutrophils % (A) 47 %; Platelet Count 146 k/uL (150-450); RBC 3.98 m/uL (3.80-5.40); RDW 14.9 % (11.5-15.5)
[2021-04-27 10:30] LABS: MCV 99.9 fL (80.0-100.0)
[2021-04-27 10:37] LABS: ALT 15 U/L (4-34); African American GFR (CKD) >90 (>60 ml/min/1.73 sqM); Albumin 2.7 g/dL (3.5-5.0); Albumin/Globulin Ratio 0.9; Amylase 40 U/L (30-110); Anion Gap 5 mmol/L; Blood Urea Nitrogen 2 mg/dL (7-17); Carbon Dioxide 18 mmol/L (22-30); Chloride 113 mmol/L (98-107); Glucose 119 mg/dL (74-99); Lipase 1105 U/L (23-300); Non-African American GFR(CKD) >90 (>60 ml/min/1.73 sqM); Sodium 136 mmol/L (137-145); Total Bilirubin 0.7 mg/dL (0.2-1.3); Total Protein 5.7 g/dL (6.3-8.2)
[2021-04-27 10:39] LABS: AST 30 U/L (14-36); Alkaline Phosphatase 30 U/L (38-126); Potassium 4.2 mmol/L (3.5-5.1)
[2021-04-27 11:27] LABS: Glucose,Whole Blood 117 mg/dL (75-99)
[2021-04-27] MEDS ORDERED: diphenhydrAMINE 25 MG CAP PO PRN (13:09)
[2021-04-27] MEDS: ONDANSETRON 4 MG/2 ML VIAL IVP PRN (13:17)
[2021-04-27] MEDS ORDERED: QUEtiapine 50 MG TAB PO STA (14:52)
[2021-04-27 16:22] LABS: Glucose,Whole Blood 114 mg/dL (75-99)
[2021-04-27] MEDS: QUEtiapine 50 MG TAB PO SCH (16:26)
--- NOTE | 2021-04-27 18:22 | PN ---
PROGRESS NOTE DATE OF SERVICE: 04/27/2021 HISTORY OF PRESENT ILLNESS: This 30-year-old woman with a past medical history of multiple medical problems was admitted with recurrent abdominal pain and pancreatitis. Patient is COVID-19 positive also. Patient also complains of itching and gallbladder ultrasound was recommended, which showed no sonographic evidence of any cholelithiasis or cholecystitis. mild hepatic steatosis was also noted. Patient is being closely monitored at this time. The lipase is 1105. Amylase is normal. The patient also had hypertriglyceridemia which is apparently causing the recurrent pancreatitis. Past medical history reviewed. REVIEW OF SYSTEMS: CARDIOVASCULAR SYSTEM: No angina. RESPIRATION: As mentioned earlier. GI: As mentioned earlier. : No dysuria. NERVOUS SYSTEM: No numbness, weakness. CURRENT MEDICATIONS: Reviewed. They include Tylenol, dextrose, Benadryl, Ativan, meropenem. Doses are reviewed. PHYSICAL EXAMINATION: Patient alert and oriented x3. Pulse is 102, blood pressure is 130/85, respirations 17, temperature 99.9, T-max 100.3, pulse ox 92% on room air. HEENT: Conjunctivae normal. NECK: No jugular venous distention. CARDIOVASCULAR: S1, S2 muffled. RESPIRATION: Breath sounds diminished at the bases. A few scattered rhonchi. ABDOMEN: Soft. Mild diffuse tenderness. No guarding or rigidity. No mass palpable. LEGS: No edema. No swelling. NERVOUS SYSTEM: No focal deficit. LABS: Sodium Other labs are noted. Cultures are pending at this time. ASSESSMENT: 1. Acute severe pancreatitis with severe abdominal pain with nausea and vomiting; possible gastritis and possible sepsis, present on admission. 2. Fever, possible sepsis. 3. Acute COVID-19 infection. 4. Lymphopenia. 5. Elevated lipase. 6. History of recurrent pancreatitis secondary to hypertriglyceridemia. 7. History of asthma, chronic intermittent. 8. Diabetes mellitus, type 2. 9. Gastroesophageal reflux disease. 10.History of migraine. 11.History of endometriosis. 12.History of lupus. 13.History of degenerative joint disease. 14.History of laparoscopic surgery for endometriosis. 15.History of multiple hospital admissions for pancreatitis. 16.History of anxiety, depression, posttraumatic stress disorder. 17.Obesity with body mass index of 36.7. 18.FULL CODE. RECOMMENDATIONS AND DISCUSSION: I recommend to continue current medications, continue with the monitoring, symptomatic treatment. Continue with the empiric antibiotics. The cultures are negative so far. Closely monitor. Prognosis guarded. Further recommendations to follow. Psychiatric consultation has been sought. I would also recommend infectious disease evaluation. Guarded prognosis. Further recommendations to follow. MMODL / IJN: [id number] / MTDD
[2021-04-27] MEDS: QUEtiapine 200 MG TAB PO SCH (20:44)
[2021-04-27] MEDS: traZODone HCL 100 MG TAB PO SCH (20:44)
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
[2021-04-28] MEDS: MORPHINE SULFATE 4 MG/ML SYRINGE IV PRN ×5 (03:04→22:01)
[2021-04-28] MEDS: DEXTROSE 5%-0.45% NACL 1,000 ML IV SCH ×4 (03:04→22:00)
[2021-04-28 06:49] LABS: Glucose,Whole Blood 132 mg/dL (75-99)
[2021-04-28] MEDS: QUEtiapine 50 MG TAB PO SCH ×2 (07:58→15:22)
[2021-04-28] MEDS: MEROPENEM 2 GM in SODIUM CHLORIDE 0.9% 100 ML IVPB SCH ×3 (07:58→23:52)
[2021-04-28] MEDS: ONDANSETRON 4 MG/2 ML VIAL IVP PRN (07:58)
[2021-04-28 08:59] LABS: ALT 16 U/L (4-34); AST 26 U/L (14-36); African American GFR (CKD) >90 (>60 ml/min/1.73 sqM); Albumin 2.9 g/dL (3.5-5.0); Albumin/Globulin Ratio 0.9; Alkaline Phosphatase 45 U/L (38-126); Amylase 46 U/L (30-110); Anion Gap 7 mmol/L; Blood Urea Nitrogen 2 mg/dL (7-17); Calcium 9.4 mg/dL (8.4-10.2); Carbon Dioxide 18 mmol/L (22-30); Chloride 112 mmol/L (98-107); Globulin 3.1 g/dL; Glucose 130 mg/dL (74-99); Lipase 1550 U/L (23-300); Non-African American GFR(CKD) >90 (>60 ml/min/1.73 sqM); Potassium 3.6 mmol/L (3.5-5.1); Sodium 137 mmol/L (137-145); Total Bilirubin 0.7 mg/dL (0.2-1.3)
[2021-04-28 09:07] LABS: Basophils % (A) 1 %; Eosinophils % (A) 0 %; HCT 38.9 % (34.0-46.0); HGB 12.9 gm/dL (11.4-16.0); Lymphocytes # (A) 1.2 k/uL (1.0-4.8); Lymphocytes % (A) 30 %; MCH 31.7 pg (25.0-35.0); MCHC 33.2 g/dL (31.0-37.0); MCV 95.6 fL (80.0-100.0); Mean Platelet Volume 8.5; Monocytes # (A) 0.3 k/uL (0-1.0); Monocytes % (A) 7 %; Neutrophils # (A) 2.4 k/uL (1.3-7.7); Neutrophils % (A) 59 %; Platelet Count 159 k/uL (150-450); RBC 4.07 m/uL (3.80-5.40); WBC 4.1 k/uL (3.8-10.6)
[2021-04-28 11:21] LABS: Glucose,Whole Blood 133 mg/dL (75-99)
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
[2021-04-28 16:29] LABS: Glucose,Whole Blood 108 mg/dL (75-99)
--- NOTE | 2021-04-28 17:26 | PN ---
PROGRESS NOTE DATE OF SERVICE: 04/28/2021 This 30-year-old woman with a history of recurrent pancreatitis was admitted with COVID- 19 and pancreatitis also patient. The patient also had some fever. Cultures are pending at this time. No chest pain. No palpitations. No fever. PHYSICAL EXAMINATION: Alert and oriented x3. Pulse is 104, blood pressure 104/70, respirations 16, temperature 99.2, T-max 100 degrees, pulse ox 94% on room air. HEENT: Conjunctivae normal. NECK: No jugular venous distention. CARDIOVASCULAR: S1, S2 muffled. RESPIRATION: Breath sounds diminished at the bases. No rhonchi. ABDOMEN: Soft, nontender. NERVOUS SYSTEM: No focal deficit. LABS: Lipase is 1550. ASSESSMENT: 1. Acute severe pancreatitis with severe abdominal pain with nausea, vomiting and possibly gastritis and possible sepsis, present on admission. 2. Fever; possible sepsis. 3. Acute COVID-19 infection. 4. Lymphopenia. 5. Elevated lipase. 6. History of recurrent pancreatitis secondary to hypertriglyceridemia. 7. History of asthma, chronic intermittent. 8. History of diabetes mellitus, type 2. 9. Gastroesophageal reflux disease. 10.History of migraine. 11.History of endometriosis. 12.History of lupus. 13.History of degenerative joint disease. 14.History of laparoscopic surgery for endometriosis. 15.History of multiple hospital admissions for pancreatitis. 16.History of anxiety, depression, posttraumatic stress disorder. 17.Obesity with body mass index of 36.7. 18.FULL CODE. RECOMMENDATIONS AND DISCUSSION: I recommend to continue current medications, continue with the monitoring, symptomatic treatment. Repeat amylase and lipase. Continue the antibiotics. Follow the cultures. Guarded prognosis. Further recommendations to follow. MMODL / IJN: [id number] /
[2021-04-28 18:19] LABS: Chol/HDL Ratio 5.63 Ratio; LDL Cholesterol,Calculated 57.8 mg/dL (0.0-131.0)
[2021-04-28 20:43] LABS: Glucose,Whole Blood 142 mg/dL (75-99)
[2021-04-28] MEDS: QUEtiapine 200 MG TAB PO SCH (21:02)
[2021-04-28] MEDS: traZODone HCL 100 MG TAB PO SCH (21:02)
--- NOTE | 2021-04-28 22:47 | P.CONS ---
History of Present Illness - Reason for Consult Consult date: 04/28/21 sepsis Requesting physician: Teo Leblanc - Chief Complaint abd pain x 2 days - History of Present Illness History of present illness : Patient is a 30-year-old female presenting to the ER 2 days ago for evaluation of abdominal pain in this patient symptoms started the day of presentation to the hospital patient describes the pain to be mostly in the epigastric area describing to be sharp and does resolve most developed and has associated nausea and vomiting no hematemesis no diarrhea patient on presentation to the hospital did have a fever of 100.4 degrees for right for the last fever this morning was 99.9 patient did have mild hypoxemia but no need for supplemental oxygen patient did have a normal white count and no lymphopenia creatinine was normal liver enzymes are normal did have elevated lipase triglyceride 262 blood cultures obtained which are currently pending and negative so far patient did have a x-ray of the abdomen with a chest x-ray which was unremarkable lungs were clear patient did have a gallbladder ultrasound no sonographic evidence of cholelithiasis or acute cholecystitis patient did have a positive COVID test infectious he was consulted last evening for evaluation of possible sepsis and is currently being treated with meropenem 2 g every 8 hours by admitting physician for the last 2 days, patient did have a mild cough and s ome shortness of breath on exertion but no need for supplemental oxygen no URI symptoms Review of system: CONSTITUTIONAL: Positive for weakness along with the fever. EYES: No complaint. ENT: No complaint. RESPIRATORY as per history of present illness. CARDIOVASCULAR: No complaint. GENITOURINARY: No complaint. GASTROINTESTINAL: As per history of present illness. MUSCULOSKELETAL: No complaint. INTEGUMENTARY: No complaint. PSYCHOLOGIC: No complaint. ENDOCRINE: No complaint. NEUROLOGIC: No complaint. Past medical history : Reviewed, documented below Past surgical history : Reviewed, documented below Social history: Reviewed, documented below Medications: Reviewed, as documented below EXAMINATION: Vital sigans= Reviewed and documented below GENERAL DESCRIPTION: Middle-aged female lying in bed, no distress. No tachypnea or accessory muscle of respiration use. HEENT: Shows Pallor , no scleral icterus. Oral mucous membrane is dry. NECK: Trachea central, no thyromegaly. LUNGS: Unlabored breathing. Decreased intensity of breath sounds. No wheeze or crackle. HEART: S1, S2, regular rate and rhythm. ABDOMEN: Soft, mild epigastric tenderness ,no guarding or rigidity EXTREMITIES: No edema of feet. SKIN: No rash, no masses palpable. NEUROLOGICAL: The patient is awake, alert, oriented x3, mood and affect normal. LABS AND RADIOLOGY: Reviewed results see below Assessment : Patient presented to the hospital with abdominal pain mostly epigastric area with elevated lipase secondary to have acute pancreatitis this being her second episode last episode was patient's his amount was 15 years ago this patient also have a positive COVID test and the fever could be more likely to underlying COVID infection as the patient currently do not have any elevated white count and does not look toxic clinically suspicion low for a complicated pancreatitis Plan: 1-we will check a CT of abdominal pelvis with contrast to better define her underlying abdominal pathology and see need for any further antibiotic therapy as there is no recommendation for routine use of antibiotics with pa ncreatitis 2-we will recheck her inflammatory markers 3-treatment for COVID is mostly supportive for no need for steroids or remdesivir as not hypoxic or need for supplemental oxygen We will follow on clinical condition and cultures to further adjust medication if needed Thank you for this consultation we will follow the patient along with you Past Medical History Past Medical History: Asthma, Diabetes Mellitus, GERD/Reflux Additional Past Medical History / Comment(s): migraines, degenerative disk disease, endometriosis, lupus, pancreatitis History of Any Multi-Drug Resistant Organisms: None Reported Past Surgical History: Orthopedic Surgery Additional Past Surgical History / Comment(s): laparoscopc surgery for endometriosis, cyst removed from left foot, EGD, Past Anesthesia/Blood Transfusion Reactions: Previous Problems w/ Anesthesia Additional Past Anesthesia/Blood Transfusion Reaction / Comm: hard to wake up for 48-72 hours after laparoscopic surgery-was in hosp. for 3 days Past Psychological History: Anxiety, Depression, PTSD Smoking Status: Never smoker Past Alcohol Use History: None Reported Past Drug Use History: Marijuana - Past Family History Mother Family Medical History: No Reported History Additional Family Medical History / Comment(s): hx migraines Father Family Medical History: Coronary Artery Disease (CAD), Hypertension Additional Family Medical History / Comment(s): ddd, alcoholism & drug use Medications and Allergies Home Medications Medication Instructions Recorded Confirmed Type traZODone HCL [Desyrel] 100 mg PO HS 30 Days tab 02/10/21 04/26/21 Rx QUEtiapine FUMARATE [SEROquel] 300 mg PO HS 04/08/21 04/26/21 History Allergies Allergy/AdvReac Type Severity Reaction Status Date / Time bee pollen Allergy Severe Anaphylaxis Verified 04/26/21 13:15 haloperidol [From Haldol] Allergy Severe QUIT Verified 04/26/21 13:15 BREATHING haloperidol lactate Allergy Severe QUIT Verified 04/26/21 13:15 [From Haldol] BREATHING latex Allergy Severe RASH-THROAT Verified 04/26/21 13:15 CLOSES mur[place] Allergy Anaphylaxis Verified 04/26/21 13:15 coconut Allergy Anaphylaxis Verified 04/26/21 13:15 pineapple Allergy Anaphylaxis Verified 04/26/21 13:15 prednisone Allergy THROAT Verified 04/26/21 13:15 SWELLS spider venom Allergy Swelling Verified 04/26/21 13:15 Sulfa (Sulfonamide Allergy THROAT Verified 04/26/21 13:15 Antibiotics) SWELLS venom-wasp Allergy Swelling Verified 04/26/21 13:15 venom-wasp protein Allergy Swelling Verified 04/26/21 13:15 promethazine HCl AdvReac Severe Nausea & Verified 04/26/21 13:15 [From Phenergan] Vomiting tramadol AdvReac Severe Nausea & Verified 04/26/21 13:15 Vomiting amoxicillin AdvReac Nausea & Verified 04/26/21 13:15 Vomiting ANTS AdvReac Mild Anaphylaxis Uncoded 04/08/21 23:14 Physical Exam Vitals: Vital Signs Temp Pulse Resp BP Pulse Ox 04/28/21 08:56 99.9 F H 121 H 17 93/66 93 L 04/28/21 05:25 99.4 F 113 H 18 108/75 93 L 04/28/21 02:05 100.0 F H 118 H 18 104/72 95 04/27/21 21:58 98.7 F 110 H 17 92/61 93 L 04/27/21 18:26 100.2 F H 108 H 16 112/69 93 L 04/27/21 14:00 99.9 F H 102 H 17 130/85 92 L Intake and Output 04/27/21 04/28/21 04/28/21 22:59 06:59 14:59 Intake Total 100 Balance 100 Intake: Intake, IV Titration 100 Amount Meropenem 2 gm In Sodium 100 Chloride 0.9% 100 ml @ 200 mls/hr IVPB Q8HR [facility] Rx#:[id number] Other: # Voids 1 Results CBC & Chem 7: 04/28/21 08:25 04/28/21 08:25 Labs: Abnormal Lab Results - Last 24 Hours (Table) 04/27/21 04/27/21 04/27/21 Range/Units 09:41 11:26 16:21 Sodium 136 L (137-145) mmol/L Chloride 113 H (98-107) mmol/L Carbon Dioxide 18 L (22-30) mmol/L BUN 2 L (7-17) mg/dL Glucose 119 H (74-99) mg/dL POC Glucose (mg/dL) 117 H 114 H (75-99) mg/dL Alkaline Phosphatase 30 L (38-126) U/L Total Protein 5.7 L (6.3-8.2) g/dL Albumin 2.7 L (3.5-5.0) g/dL Lipase 1105 H (23-300) U/L 04/28/21 04/28/21 Range/Units 06:48 08:25 Sodium (137-145) mmol/L Chloride 112 H (98-107) mmol/L Carbon Dioxide 18 L (22-30) mmol/L BUN 2 L (7-17) mg/dL Glucose 130 H (74-99) mg/dL POC Glucose (mg/dL) 132 H (75-99) mg/dL Alkaline Phosphatase (38-126) U/L Total Protein 6.0 L (6.3-8.2) g/dL Albumin 2.9 L (3.5-5.0) g/dL Lipase 1550 H (23-300) U/L Microbiology - Last 24 Hours (Table) 04/26/21 10:58 Blood Culture - Preliminary Blood No Growth after 24 hours 04/26/21 10:30 Blood Culture - Preliminary Blood No Growth after 24 hours
[2021-04-29] MEDS: MORPHINE SULFATE 4 MG/ML SYRINGE IV PRN ×5 (05:44→21:19)
[2021-04-29] MEDS: ONDANSETRON 4 MG/2 ML VIAL IVP PRN ×2 (05:44→17:09)
[2021-04-29 07:11] LABS: Glucose,Whole Blood 128 mg/dL (75-99)
[2021-04-29] MEDS: IOPAMIDOL CONTRAST (ORAL USE) VIAL PO PRN ×2 (08:26→09:10)
[2021-04-29] MEDS: MEROPENEM 2 GM in SODIUM CHLORIDE 0.9% 100 ML IVPB SCH (08:27)
[2021-04-29 08:57] LABS: Basophils # (A) 0.02 X 10*3/uL (0.00-0.10); Basophils % (A) 0.6 %; Eosinophils # (A) 0.11 X 10*3/uL (0.04-0.35); Eosinophils % (A) 3.4 %; HCT 39.3 % (37.2-46.3); HGB 12.5 g/dL (12.0-15.0); MCHC 31.8 g/dL (32.0-37.0); MCV 94.2 fL (80.0-97.0); Mean Platelet Volume 10.9 fL (9.5-12.2); Monocytes # (A) 0.26 X 10*3/uL (0.20-1.00); Monocytes % (A) 8.2 %; Neutrophils # (A) 1.29 X 10*3/uL (1.80-7.70); Neutrophils % (A) 40.5 %; Platelet Count 152 X 10*3/uL (140-440); RBC 4.17 X 10*6/uL (4.10-5.20); RDW 14.5 % (11.5-14.5); WBC 3.19 X 10*3/uL (4.50-10.00)
[2021-04-29 09:56] LABS: African American GFR (CKD) 151.6 (60.0-200.0); Albumin 3.2 g/dL (3.8-4.9); Albumin/Globulin Ratio 1.23 (1.60-3.17); Anion Gap 12.6 mmol/L (10.00-18.00); BUN/Creat Ratio 7.2 Ratio (12.00-20.00); Blood Urea Nitrogen 3.6 mg/dL (9.0-27.0); Calcium 9.6 mg/dL (8.7-10.3); Carbon Dioxide 19.4 mmol/L (20.0-27.5); Globulin 2.6 g/dL (1.6-3.3); Non-African American GFR(CKD) 130.8 (60.0-200.0); Potassium 3.6 mmol/L (3.5-5.5); Total Bilirubin 0.5 mg/dL (0.30-1.20); Total Protein 5.8 g/dL (6.2-8.2)
[2021-04-29] MEDS: QUEtiapine 50 MG TAB PO SCH ×2 (10:22→16:08)
--- NOTE | 2021-04-29 10:24 | CT ---
EXAMINATION TYPE: CT abdomen pelvis w con DATE OF EXAM: 04/29/2021 COMPARISON: 01/25/2021 INDICATION: Pancreatitis DLP: 1348.1 mGycm, Automated exposure control for dose reduction was used. CONTRAST: 100 mL of Isovue 300. Study performed with Oral Contrast TECHNIQUE: Axial images were obtained from above the diaphragm to the pubic rami in the axial plane a t 5 mm thick sections. Reconstructed images are reviewed on the computer in the coronal plane. FINDINGS: Limited CT sections are obtained the lung bases. There is a small nodular density in the posterior r ight lung base measuring 1.8 x 0.8 cm. This is smaller than comparison. CT ABDOMEN: Liver: Some mild fatty infiltration is within the liver. Spleen: Normal Pancreas: Fluid is adjacent to the body and tail of the pancreas. Findings can be compatible with acu te pancreatitis. The pancreas appears normal. No suspicious cysts are evident. Adrenal glands: The adrenal glands are normal. Gallbladder: Normal Kidneys: No masses are evident. No hydronephrosis is present. No cysts are present. Delayed images were obtained through the kidneys, which remain unremarkable. Aorta: Normal Inferior vena cava: Normal. CT PELVIS: Loops of bowel within the abdomen and pelvis are normal. There are some loops of bowel with incom plete distention limiting their evaluation. Appendix: Normal as visualized. Urinary bladder: Normal. Genitourinary structures: Uterus is unremarkable. Adnexal regions appear within normal limits. Osseous structures: No suspicious lytic or sclerotic lesions. IMPRESSIONS: 1. Fluid adjacent to the body and tail of the pancreas. Correlate for acute pancreatitis. No abscess formation or pseudocyst formation evident at this time. 2. Mild fatty changes in liver. 3. Nodular density which is diminished in size from comparison in the posterior right lung base. Foll ow-up is recommended.
[2021-04-29 10:32] LABS: C Reactive Protein 5.1 mg/dL (0.00-0.80)
[2021-04-29 11:30] LABS: Glucose,Whole Blood 105 mg/dL (75-99)
[2021-04-29] MEDS: diphenhydrAMINE 25 MG CAP PO SCH ×2 (16:07→21:19)
[2021-04-29] MEDS: POTASSIUM CHLORIDE ER 20 MEQ TAB.ER PO SCH ×2 (16:07→16:10)
[2021-04-29 16:34] LABS: Glucose,Whole Blood 139 mg/dL (75-99)
[2021-04-29] MEDS: DEXTROSE 5%-0.45% NACL 1,000 ML IV SCH ×2 (18:57→21:22)
[2021-04-29 20:37] LABS: Glucose,Whole Blood 153 mg/dL (75-99)
[2021-04-29] MEDS: QUEtiapine 200 MG TAB PO SCH (21:19)
[2021-04-29] MEDS: traZODone HCL 100 MG TAB PO SCH (21:19)
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
[2021-04-30] MEDS: DEXTROSE 5%-0.45% NACL 1,000 ML IV SCH ×3 (01:53→21:09)
[2021-04-30] MEDS: MORPHINE SULFATE 4 MG/ML SYRINGE IV PRN ×5 (02:54→19:33)
[2021-04-30 07:05] LABS: Glucose,Whole Blood 151 mg/dL (75-99)
[2021-04-30] MEDS: ONDANSETRON 4 MG/2 ML VIAL IVP PRN ×2 (07:37→16:12)
[2021-04-30] MEDS: QUEtiapine 50 MG TAB PO SCH ×2 (07:37→16:12)
[2021-04-30] MEDS: diphenhydrAMINE 25 MG CAP PO SCH ×4 (07:37→21:49)
[2021-04-30 11:13] LABS: Basophils # (A) 0.02 X 10*3/uL (0.00-0.10); Basophils % (A) 0.6 %; Eosinophils # (A) 0.18 X 10*3/uL (0.04-0.35); Eosinophils % (A) 5.4 %; HCT 37.1 % (37.2-46.3); Lymphocytes # (A) 2.04 X 10*3/uL (0.90-5.00); Lymphocytes % (A) 61.3 %; MCH 30.1 pg (27.0-32.0); MCHC 32.3 g/dL (32.0-37.0); Mean Platelet Volume 11.3 fL (9.5-12.2); Monocytes # (A) 0.25 X 10*3/uL (0.20-1.00); Monocytes % (A) 7.5 %; Neutrophils # (A) 0.84 X 10*3/uL (1.80-7.70); Neutrophils % (A) 25.2 %; Platelet Count 167 X 10*3/uL (140-440); RBC 3.99 X 10*6/uL (4.10-5.20); RDW 14.3 % (11.5-14.5); WBC 3.33 X 10*3/uL (4.50-10.00)
[2021-04-30 11:28] LABS: African American GFR (CKD) 149.6 (60.0-200.0); Anion Gap 10.3 mmol/L (10.00-18.00); BUN/Creat Ratio 3.71 Ratio (12.00-20.00); Blood Urea Nitrogen 1.9 mg/dL (9.0-27.0); Calcium 9.6 mg/dL (8.7-10.3); Carbon Dioxide 21.4 mmol/L (20.0-27.5); Non-African American GFR(CKD) 129.1 (60.0-200.0); Potassium 3.7 mmol/L (3.5-5.5)
[2021-04-30 11:48] LABS: Glucose,Whole Blood 122 mg/dL (75-99)
[2021-04-30] MEDS ORDERED: Potassium Replacement Protocol 1 EACH MISC MISCELLANE PRN (14:24)
[2021-04-30 14:48] VITALS: BMI 36.7
[2021-04-30] MEDS ORDERED: POTASSIUM CHLORIDE ER 20 MEQ TAB.ER PO SCH (15:00)
--- NOTE | 2021-04-30 16:03 | P.PN ---
Subjective Progress Note Date: 04/30/21 04/29/2021 Patient evaluated today resting in bed. Complains of 10/10 mid epigastric pain that radiates in the right upper quadrant. Pain is a dull constant ache. Patient with known history of acute pancreatitis with frequent admissions. Labs today show white count of 3.19, potassium 3.6, CRP 5.10, procalcitonin 2.01. Abdomen pelvis CT today shows fluid adjacent to the body and tail of the pancreas, correlated for acute pancreatitis. No abscess formation of pseudocyst formation evident at this time. Mild fatty changes in the liver. Nodular density which is diminished in size from comparison in the posterior right lung base, follow up recommended. Psychiatric services cleared patient and to continue on recommended medications. Patient is currently homeless at this time due to an unsafe home environment and does follow with [facility] mental health. Vital signs today, patient is afebrile, heart rate 116, blood pressure 110/67, 97% on room air. 04/30/2021 Patient still complains of abdominal pain midepigastric she states it is worse than yesterday. She is not tolerating oral intake. Labs today show white count 3.33, potassium 3.7, BUN 1.9, creatinine 0.5, glucose 150s, amylase 25, lipase 187 which is drastically improved since admission. Patient is afebrile, heart rate 92, blood pressure 110/77. Antibiotics were discontinued. Patient is COVID positive, asymptomatic incidental finding, tomorrow will be her fifth day. Hopefully she can return to the [facility] care home on discharge which will hopefully be tomorrow. Patient was supposed to follow up with Dr. Bocanegra in the office 2 days ago however she was hospitalized and missed this appointment. Blood cultures are all negative. ROS Constitutional: Denied any fatigue denied any fever. Cardio vascular: denied any chest pain, palpitations Gastrointestinal: Reports nausea, denies diarrhea, denies vomiting, reports abdominal pain as described above Pulmonary: Denied any shortness of breath cough Neurologic denied any new focal deficits All inpatient medications were reviewed and appropriate changes in these me dications as dictated in the interval history and assessment and plan. PHYSICAL EXAMINATION: GENERAL: The patient is alert and oriented x3, not in any acute distress. Well developed, well nourished. HEENT: Pupils are round and equally reacting to light. EOMI. No scleral icterus. No conjunctival pallor. Normocephalic, atraumatic. No pharyngeal erythema. No thyromegaly. CARDIOVASCULAR: S1 and S2 present. No murmurs, rubs, or gallops. PULMONARY: Chest is clear to auscultation, no wheezing or crackles. ABDOMEN: Soft, tender to palpation midepigastric region. Normoactive bowel sounds MUSCULOSKELETAL: No joint swelling or deformity. EXTREMITIES: No cyanosis, clubbing, or pedal edema. NEUROLOGICAL: Gross neurological examination did not reveal any focal deficits. SKIN: No rashes. Assessment and Plan Assessment Acute pancreatitis with abdominal pain and nausea with possible gastritis secondary to chronic elevated triglycerides amylase improved to 187 Fever, possible sepsis secondary to above, Improved Tachycardia, possibly due to infection and dehydration, Improved Acute Covid 19 infection, incidental finding, patient is on room air Elevated lipase, improving Chronic hypertriglyceridemia; currently 262 History of diabetes mellitus type 2 with hyperglycemia History of asthma, not in acute exacerbation Gastroesophageal reflux disease History of endometriosis s/p laproscopic surgery Anxiety/depression/post traumatic stress disorder History of bipolar disorder, unspecified Obesity GI Prophylaxis DVT Prophylaxis FULL CODE Plan Continue IV fluids Continue supportive care Pain management Increase diet and activity as tolerated Discharge planning - hopefully tomorrow Encourage ambulation Objective - Vital Signs Vital signs: Vital Signs Temp 98.6 F 04/30/21 09:40 Pulse 95 04/30/21 09:40 Resp 14 04/30/21 09:40 BP 103/71 04/30/21 09:40 Pulse Ox 96 04/30/21 09:40 Intake & Output 04/29/21 04/30/21 04/30/21 18:59 06:59 18:59 Intake Total 1650 Balance 1650 Intake: Intake, IV Titration 1100 Amount Dextrose 5%-0.45% NaCl 1, 1000 000 ml @ 125 mls/hr IV . Q8H [facility] Rx#:[id number] Meropenem 2 gm In Sodium 100 Chloride 0.9% 100 ml @ 200 mls/hr IVPB Q8HR [facility] Rx#:[id number] Oral 550 - Labs CBC & Chem 7: 04/30/21 05:28 04/30/21 05:28 Labs: Abnormal Lab Results - Last 24 Hours (Table) 04/29/21 04/29/21 04/30/21 Range/Units 16:32 20:36 05:28 WBC 3.33 L (4.50-10.00) X 10*3/uL RBC 3.99 L (4.10-5.20) X 10*6/uL Hct 37.1 L (37.2-46.3) % Neutrophils # 0.84 L (1.80-7.70) X 10*3/uL BUN (9.0-27.0) mg/dL Creatinine (0.6-1.5) mg/dL BUN/Creatinine Ratio (12.00-20.00) Ratio Glucose (70-110) mg/dL POC Glucose (mg/dL) 139 H 153 H (75-99) mg/dL Lipase (14-63) U/L 04/30/21 04/30/21 04/30/21 Range/Units 05:28 07:04 11:46 WBC (4.50-10.00) X 10*3/uL RBC (4.10-5.20) X 10*6/uL Hct (37.2-46.3) % Neutrophils # (1.80-7.70) X 10*3/uL BUN 1.9 L (9.0-27.0) mg/dL Creatinine 0.5 L (0.6-1.5) mg/dL BUN/Creatinine Ratio 3.71 L (12.00-20.00) Ratio Glucose 167 H (70-110) mg/dL POC Glucose (mg/dL) 151 H 122 H (75-99) mg/dL Lipase 187 H (14-63) U/L Microbiology - Last 24 Hours (Table) 04/26/21 10:30 Blood Culture - Preliminary Blood No Growth after 96 hours 04/26/21 10:58 Blood Culture - Preliminary Blood No Growth after 96 hours 04/27/21 18:24 Blood Culture - Preliminary Blood No Growth after 48 hours
[2021-04-30 16:49] LABS: Glucose,Whole Blood 110 mg/dL (75-99)
[2021-04-30 21:13] LABS: Glucose,Whole Blood 111 mg/dL (75-99)
[2021-04-30] MEDS: QUEtiapine 200 MG TAB PO SCH (21:49)
[2021-04-30] MEDS: traZODone HCL 100 MG TAB PO SCH (21:49)
--- NOTE | 2021-04-30 22:46 | P.PN ---
Subjective Progress Note Date: 04/29/21 Principal diagnosis: Covid19 pneumonia and pancreatitis Patient is a 30-year female presented to hospital with abdominal pain in this patient did have evidence of pancreatitis with elevated lipase also have a positive COVID test. On today's evaluation that is 04/29/2021 the patient is afebrile, the patient is breathing comfortably on room air patient denies having any chest pain still complaining of abdominal pain some nausea but no vomiting and no diarrhea Objective - Vital Signs Vital signs: Vital Signs Temp 98.6 F 04/30/21 09:40 Pulse 95 04/30/21 09:40 Resp 14 04/30/21 09:40 BP 103/71 04/30/21 09:40 Pulse Ox 96 04/30/21 09:40 Intake & Output 04/29/21 04/30/21 04/30/21 18:59 06:59 18:59 Intake Total 1650 Balance 1650 Intake: Intake, IV Titration 1100 Amount Dextrose 5%-0.45% NaCl 1, 1000 000 ml @ 125 mls/hr IV . Q8H [facility] Rx#:[id number] Meropenem 2 gm In Sodium 100 Chloride 0.9% 100 ml @ 200 mls/hr IVPB Q8HR [facility] Rx#:[id number] Oral 550 - Exam GENERAL DESCRIPTION: Middle-aged female lying in bed, no distress. No tachypnea or accessory muscle of respiration use. LUNGS: Unlabored breathing. Clear to auscultation anteriorly. No wheeze or crackle. HEART: S1, S2, regular rate and rhythm. No loud murmur ABDOMEN: Soft, mild epigastric tenderness , guarding or rigidity, no organomegaly EXTREMITIES: No edema of feet. - Labs CBC & Chem 7: 04/30/21 05:28 04/30/21 05:28 Labs: Abnormal Lab Results - Last 24 Hours (Table) 04/29/21 04/29/21 04/30/21 Range/Units 16:32 20:36 05:28 WBC 3.33 L (4.50-10.00) X 10*3/uL RBC 3.99 L (4.10-5.20) X 10*6/uL Hct 37.1 L (37.2-46.3) % Neutrophils # 0.84 L (1.80-7.70) X 10*3/uL BUN (9.0-27.0) mg/dL Creatinine (0.6-1.5) mg/dL BUN/Creatinine Ratio (12.00-20.00) Ratio Glucose (70-110) mg/dL POC Glucose (mg/dL) 139 H 153 H (75-99) mg/dL Lipase (14-63) U/L 04/30/21 04/30/21 04/30/21 Range/Units 05:28 07:04 11:46 WBC (4.50-10.00) X 10*3/uL RBC (4.10-5.20) X 10*6/uL Hct (37.2-46.3) % Neutrophils # (1.80-7.70) X 10*3/uL BUN 1.9 L (9.0-27.0) mg/dL Creatinine 0.5 L (0.6-1.5) mg/dL BUN/Creatinine Ratio 3.71 L (12.00-20.00) Ratio Glucose 167 H (70-110) mg/dL POC Glucose (mg/dL) 151 H 122 H (75-99) mg/dL Lipase 187 H (14-63) U/L Microbiology - Last 24 Hours (Table) 04/26/21 10:30 Blood Culture - Preliminary Blood No Growth after 96 hours 04/26/21 10:58 Blood Culture - Preliminary Blood No Growth after 96 hours 04/27/21 18:24 Blood Culture - Preliminary Blood No Growth after 48 hours Assessment and Plan Assessment: Patient with a fever likely secondary to COVID-19 infection as well as pancreatitis there is no evidence of any pancreatic pseudocyst or an abscess and the patient respiratory status is stable without need for supplemental oxygen patient to continue with the current supportive treatment and there is no need for antibiotic or steroid therapy
[2021-05-01] MEDS: MORPHINE SULFATE 4 MG/ML SYRINGE IV PRN ×4 (01:00→12:56)
[2021-05-01] MEDS: DEXTROSE 5%-0.45% NACL 1,000 ML IV SCH ×3 (01:01→19:41)
[2021-05-01] MEDS: diphenhydrAMINE 25 MG CAP PO SCH ×2 (07:56→13:49)
[2021-05-01] MEDS: QUEtiapine 50 MG TAB PO SCH ×2 (07:56→16:38)
[2021-05-01] MEDS: ASCORBIC ACID 500 MG TAB PO SCH (07:56)
[2021-05-01] MEDS: ACETAMINOPHEN TAB 325 MG TAB PO PRN (07:56)
[2021-05-01 09:44] LABS: Glucose,Whole Blood 111 mg/dL (75-99)
[2021-05-01 11:49] LABS: Glucose,Whole Blood 132 mg/dL (75-99)
[2021-05-01] MEDS ORDERED: diphenhydrAMINE 50 MG/ML 1 ML VIAL IVP STA (12:50)
[2021-05-01] MEDS ORDERED: diphenhydrAMINE 25 MG CAP PO PRN (14:29)
--- NOTE | 2021-05-01 14:48 | P.PN ---
Subjective Progress Note Date: 04/30/21 Principal diagnosis: Covid19 pneumonia and pancreatitis Patient is a 30-year female presented to hospital with abdominal pain in this patient did have evidence of pancreatitis with elevated lipase also have a positive COVID test. On today's evaluation that is 04/29/2021 the patient remains to be afebrile, the patient is breathing comfortably on room air , the patient denies chest pain , pt is still complaining of abdominal pain some nausea but no vomiting and no ericka rrhea Objective - Vital Signs Vital signs: Vital Signs Temp 98.6 F 04/30/21 09:40 Pulse 95 04/30/21 09:40 Resp 14 04/30/21 09:40 BP 103/71 04/30/21 09:40 Pulse Ox 96 04/30/21 09:40 Intake & Output 04/29/21 04/30/21 04/30/21 18:59 06:59 18:59 Intake Total 1650 Balance 1650 Intake: Intake, IV Titration 1100 Amount Dextrose 5%-0.45% NaCl 1, 1000 000 ml @ 125 mls/hr IV . Q8H [facility] Rx#:[id number] Meropenem 2 gm In Sodium 100 Chloride 0.9% 100 ml @ 200 mls/hr IVPB Q8HR [facility] Rx#:[id number] Oral 550 - Exam GENERAL DESCRIPTION: Middle-aged female lying in bed, no distress. No tachypnea or accessory muscle of respiration use. LUNGS: Unlabored breathing. Clear to auscultation anteriorly. No wheeze or crackle. HEART: S1, S2, regular rate and rhythm. No loud murmur ABDOMEN: Soft, mild epigastric tenderness , guarding or rigidity, no organomegaly EXTREMITIES: No edema of feet. - Labs CBC & Chem 7: 04/30/21 05:28 04/30/21 05:28 Labs: Abnormal Lab Results - Last 24 Hours (Table) 04/29/21 04/29/21 04/30/21 Range/Units 16:32 20:36 05:28 WBC 3.33 L (4.50-10.00) X 10*3/uL RBC 3.99 L (4.10-5.20) X 10*6/uL Hct 37.1 L (37.2-46.3) % Neutrophils # 0.84 L (1.80-7.70) X 10*3/uL BUN (9.0-27.0) mg/dL Creatinine (0.6-1.5) mg/dL BUN/Creatinine Ratio (12.00-20.00) Ratio Glucose (70-110) mg/dL POC Glucose (mg/dL) 139 H 153 H (75-99) mg/dL Lipase (14-63) U/L 04/30/21 04/30/21 04/30/21 Range/Units 05:28 07:04 11:46 WBC (4.50-10.00) X 10*3/uL RBC (4.10-5.20) X 10*6/uL Hct (37.2-46.3) % Neutrophils # (1.80-7.70) X 10*3/uL BUN 1.9 L (9.0-27.0) mg/dL Creatinine 0.5 L (0.6-1.5) mg/dL BUN/Creatinine Ratio 3.71 L (12.00-20.00) Ratio Glucose 167 H (70-110) mg/dL POC Glucose (mg/dL) 151 H 122 H (75-99) mg/dL Lipase 187 H (14-63) U/L Microbiology - Last 24 Hours (Table) 04/26/21 10:30 Blood Culture - Preliminary Blood No Growth after 96 hours 04/26/21 10:58 Blood Culture - Preliminary Blood No Growth after 96 hours 04/27/21 18:24 Blood Culture - Preliminary Blood No Growth after 48 hours Assessment and Plan Assessment: Patient with a fever likely secondary to COVID-19 infection as well as pancreatitis there is no evidence of any pancreatic pseudocyst or an abscess and the patient respiratory status is stable without need for supplemental oxygen patient to continue with supportive treatment and there is no need for systemic antibiotic or steroid therapy Time with Patient: Less than 30
--- NOTE | 2021-05-01 15:24 | P.PN ---
Subjective Progress Note Date: 05/01/21 04/29/2021 Patient evaluated today resting in bed. Complains of 10/10 mid epigastric pain that radiates in the right upper quadrant. Pain is a dull constant ache. Patient with known history of acute pancreatitis with frequent admissions. Labs today show white count of 3.19, potassium 3.6, CRP 5.10, procalcitonin 2.01. Abdomen pelvis CT today shows fluid adjacent to the body and tail of the pancreas, correlated for acute pancreatitis. No abscess formation of pseudocyst formation evident at this time. Mild fatty changes in the liver. Nodular density which is diminished in size from comparison in the posterior right lung base, follow up recommended. Psychiatric services cleared patient and to continue on recommended medications. Patient is currently homeless at this time due to an unsafe home environment and does follow with [facility] mental health. Vital signs today, patient is afebrile, heart rate 116, blood pressure 110/67, 97% on room air. 04/30/2021 Patient still complains of abdominal pain midepigastric she states it is worse than yesterday. She is not tolerating oral intake. Labs today show white count 3.33, potassium 3.7, BUN 1.9, creatinine 0.5, glucose 150s, amylase 25, lipase 187 which is drastically improved since admission. Patient is afebrile, heart rate 92, blood pressure 110/77. Antibiotics were discontinued. Patient is COVID positive, asymptomatic incidental finding, tomorrow will be her fifth day. Hopefully she can return to the [facility] on discharge which will hopefully be tomorrow. Patient was supposed to follow up with Dr. Bocanegra in the office 2 days ago however she was hospitalized and missed this appointment. Blood cultures are all negative. 05/01/2021 Abdominal pain is stable, no better nor worse. Patient states that she still not tolerating oral intake. Labs are stable, lipase is increased at 560 however this is chronically elevated for patient is lower than normal. Rapid covid swab positive, patient states her symptoms began about 1-2 days prior to admission she did receive monoclonal antibodies in the [facility] on admission. Diet can be increased as tolerated, encourage increase in activity. Discharge planning is difficult due to Covid infection patient's current home situation. She does appear sad at bedside during assessment. Vital stable afebrile, heart rate 85, blood pressure 114/72 96% on room air. ROS Constitutional: Denied any fatigue denied any fever. Cardio vascular: denied any chest pain, palpitations Gastrointestinal: Reports nausea, denies diarrhea, denies vomiting, reports abdominal pain as described above Pulmonary: Denied any shortness of breath cough Neurologic denied any new focal deficits All inpatient medications were reviewed and appropriate changes in these medications as dictated in the interval history and assessment and plan. PHYSICAL EXAMINATION: GENERAL: The patient is alert and oriented x3, not in any acute distress. Well developed, well nourished. HEENT: Pupils are round and equally reacting to light. EOMI. No scleral icterus. No conjunctival pallor. Normocephalic, atraumatic. No pharyngeal erythema. No thyromegaly. CARDIOVASCULAR: S1 and S2 present. No murmurs, rubs, or gallops. PULMONARY: Chest is clear to auscultation, no wheezing or crackles. ABDOMEN: Soft, tender to palpation midepigastric region. Normoactive bowel sounds MUSCULOSKELETAL: No joint swelling or deformity. EXTREMITIES: No cyanosis, clubbing, or pedal edema. NEUROLOGICAL: Gross neurological examination did not reveal any focal deficits. SKIN: No rashes. Assessment and Plan Assessment Acute pancreatitis with abdominal pain and nausea with possible gastritis secondary to chronic elevated triglycerides lipase improving Fever, possible sepsis secondary to above, Improved Tachycardia, possibly due to infection and dehydration, Improved Acute Covid 19 infection, currently asymptomatic no evidence for pneumonia, patient did receive monoclonal antibodies. Elevated lipase, improving Chronic hypertriglyceridemia; currently 262 History of diabetes mellitus type 2 with hyperglycemia History of asthma, not in acute exacerbation Gastroesophageal reflux disease History of endometriosis s/p laproscopic surgery Anxiety/depression/post traumatic stress disorder History of bipolar disorder, unspecified Obesity GI Prophylaxis DVT Prophylaxis FULL CODE Plan Continue IV fluids Continue supportive care Pain management Increase diet and activity as tolerated Discharge planning with social work Encourage ambulation Objective - Vital Signs Vital signs: Vital Signs Temp 98.5 F 05/01/21 09:40 Pulse 85 05/01/21 09:40 Resp 14 05/01/21 09:40 BP 114/72 05/01/21 09:40 Pulse Ox 96 05/01/21 09:40 Intake & Output 04/30/21 05/01/21 05/01/21 18:59 06:59 18:59 Intake Total 1865 Balance 1865 Weight 97.069 kg Intake: IV 1625 Dextrose 5%-0.45% NaCl 1, 1625 000 ml @ 125 mls/hr IV . Q8H [facility] Rx#:[id number] Oral 240 - Labs CBC & Chem 7: 04/30/21 05:28 04/30/21 05:28 Labs: Abnormal Lab Results - Last 24 Hours (Table) 04/30/21 04/30/21 05/01/21 Range/Units 16:48 21:12 07:17 POC Glucose (mg/dL) 110 H 111 H 111 H (75-99) mg/dL Lipase (23-300) U/L 05/01/21 05/01/21 Range/Units 08:27 11:48 POC Glucose (mg/dL) 132 H (75-99) mg/dL Lipase 568 H (23-300) U/L Microbiology - Last 24 Hours (Table) 04/27/21 18:24 Blood Culture - Preliminary Blood No Growth after 72 hours 04/26/21 10:30 Blood Culture - Preliminary Blood No Growth after 96 hours 04/26/21 10:58 Blood Culture - Preliminary Blood No Growth after 96 hours
[2021-05-01] MEDS: HYDROcodone/APAP 5-325MG 1 EACH TAB PO PRN (16:38)
[2021-05-01 17:10] LABS: Glucose,Whole Blood 89 mg/dL (75-99)
[2021-05-01] MEDS: QUEtiapine 200 MG TAB PO SCH (20:17)
[2021-05-01] MEDS: traZODone HCL 100 MG TAB PO SCH (20:17)
[2021-05-01 20:23] LABS: Glucose,Whole Blood 99 mg/dL (75-99)
[2021-05-02 07:16] LABS: Glucose,Whole Blood 104 mg/dL (75-99)
[2021-05-02] MEDS: ASCORBIC ACID 500 MG TAB PO SCH (08:40)
[2021-05-02] MEDS: HYDROcodone/APAP 5-325MG 1 EACH TAB PO PRN ×2 (08:40→14:39)
[2021-05-02] MEDS: QUEtiapine 50 MG TAB PO SCH ×2 (08:40→17:58)
[2021-05-02 09:56] LABS: African American GFR (CKD) >90 (>60 ml/min/1.73 sqM); Anion Gap 6 mmol/L; Blood Urea Nitrogen <2 mg/dL (7-17); Calcium 9.8 mg/dL (8.4-10.2); Carbon Dioxide 20 mmol/L (22-30); Chloride 108 mmol/L (98-107); Glucose 116 mg/dL (74-99); Non-African American GFR(CKD) >90 (>60 ml/min/1.73 sqM); Sodium 134 mmol/L (137-145)
[2021-05-02 10:13] LABS: HCT 38.8 % (34.0-46.0); HGB 13.3 gm/dL (11.4-16.0); MCH 32.5 pg (25.0-35.0); MCHC 34.2 g/dL (31.0-37.0); MCV 94.8 fL (80.0-100.0); Mean Platelet Volume 8.6; Platelet Count 207 k/uL (150-450); RBC 4.09 m/uL (3.80-5.40); RDW 14.5 % (11.5-15.5); WBC 3.2 k/uL (3.8-10.6)
[2021-05-02 11:31] LABS: Glucose,Whole Blood 112 mg/dL (75-99)
[2021-05-02 11:38] LABS: Eosinophils # (M) 0.22 k/uL (0-0.7); Lymphocytes # (M) 1.02 k/uL (1.0-4.8); Monocytes # (M) 0.19 k/uL (0-1.0); Neutrophils # (M) 1.76 k/uL (1.3-7.7); Neutrophils % (M) 55 %; Nucleated Red Blood Cells 0 /100 WBC (0-0); Total Cells Counted 100
[2021-05-02 12:07] LABS: ALT 37 U/L (4-34); AST 69 U/L (14-36); Albumin 3.2 g/dL (3.5-5.0); Albumin/Globulin Ratio 0.9; Alkaline Phosphatase 58 U/L (38-126); Amylase 43 U/L (30-110); Globulin 3.7 g/dL; Lipase 498 U/L (23-300); Total Protein 6.9 g/dL (6.3-8.2)
--- NOTE | 2021-05-02 16:33 | P.PN ---
Subjective Progress Note Date: 05/01/21 Principal diagnosis: Covid19 pneumonia and pancreatitis Patient is a 30-year female presented to hospital with abdominal pain in this patient did have evidence of pancreatitis with elevated lipase also have a positive COVID test. On today's evaluation that is 05/01/2021 the patient denies having any fever or any chills, the patient is breathing comfortably on room air , the patient denies chest pain , the patient is complaining of abdominal pain and wanted more pain medication some nausea but no vomiting and no diarrhea Objective - Vital Signs Vital signs: Vital Signs Temp 98.5 F 05/01/21 09:40 Pulse 85 05/01/21 09:40 Resp 14 05/01/21 09:40 BP 114/72 05/01/21 09:40 Pulse Ox 96 05/01/21 09:40 Intake & Output 04/30/21 05/01/21 05/01/21 18:59 06:59 18:59 Intake Total 1865 Balance 1865 Weight 97.069 kg Intake: IV 1625 Dextrose 5%-0.45% NaCl 1, 1625 000 ml @ 125 mls/hr IV . Q8H [facility] Rx#:[id number] Oral 240 - Exam GENERAL DESCRIPTION: Middle-aged female lying in bed, no distress. No tachypnea or accessory muscle of respiration use. LUNGS: Unlabored breathing. Clear to auscultation anteriorly. No wheeze or crackle. HEART: S1, S2, regular rate and rhythm. No loud murmur ABDOMEN: Soft, mild epigastric tenderness , guarding or rigidity, no organomegaly EXTREMITIES: No edema of feet. - Labs CBC & Chem 7: 05/02/21 08:56 05/02/21 08:56 Labs: Abnormal Lab Results - Last 24 Hours (Table) 04/30/21 04/30/21 05/01/21 Range/Units 16:48 21:12 07:17 POC Glucose (mg/dL) 110 H 111 H 111 H (75-99) mg/dL Lipase (23-300) U/L Coronavirus (PCR) (Not Detectd) 05/01/21 05/01/21 05/01/21 Range/Units 08:27 11:48 12:55 POC Glucose (mg/dL) 132 H (75-99) mg/dL Lipase 568 H (23-300) U/L Coronavirus (PCR) Detected A (Not Detectd) Microbiology - Last 24 Hours (Table) 04/26/21 10:30 Blood Culture - Preliminary Blood No Growth after 120 hours 04/26/21 10:58 Blood Culture - Preliminary Blood No Growth after 120 hours 04/27/21 18:24 Blood Culture - Preliminary Blood No Growth after 72 hours Assessment and Plan (1) COVID-19 Current Visit: Yes Status: Acute Code(s): U07.1 - COVID-19 SNOMED Code(s): 781677559 (2) Chronic pancreatitis Current Visit: Yes Status: Acute Code(s): K86.1 - OTHER CHRONIC PANCREATITIS SNOMED Code(s): 841645737 Plan: Patient with a fever likely secondary to COVID-19 infection as well as pancreatitis there is no evidence of any pancreatic pseudocyst or an abscess and the patient respiratory status is stable without need for supplemental oxygen patient is currently covered with supportive treatment and there is no need for systemic antibiotic or steroid therapy Time with Patient: Less than 30
--- NOTE | 2021-05-02 16:35 | P.PN ---
Subjective Progress Note Date: 05/02/21 Principal diagnosis: Covid19 pneumonia and pancreatitis Patient is a 30-year female presented to hospital with abdominal pain in this patient did have evidence of pancreatitis with elevated lipase also have a positive COVID test. On today's evaluation that is 05/02/2021 the patient denies having any fever or any chills, the patient is breathing comfortably on room air , the patient denies chest pain , the patient has been complaining of more abdominal pain after her diet was advanced patient did have some nausea but no vomiting denies having any diarrhea mentioning [place] every few hours not helping Objective - Vital Signs Vital signs: Vital Signs Temp 98.4 F 05/02/21 10:08 Pulse 106 H 05/02/21 10:08 Resp 17 05/02/21 10:08 BP 116/82 05/02/21 10:08 Pulse Ox 94 L 05/02/21 10:08 Intake & Output 05/01/21 05/02/21 05/02/21 18:59 06:59 18:59 Intake Total 1420 240 Balance 1420 240 Intake: Intake, IV Titration 920 Amount Dextrose 5%-0.45% NaCl 1, 920 000 ml @ 125 mls/hr IV . Q8H [facility] Rx#:[id number] Oral 500 240 Other: Voiding Method Toilet # Voids 3 - Exam GENERAL DESCRIPTION: Middle-aged female lying in bed, no distress. No tachypnea or accessory muscle of respiration use. LUNGS: Unlabored breathing. Clear to auscultation anteriorly. No wheeze or crackle. HEART: S1, S2, regular rate and rhythm. No loud murmur ABDOMEN: Soft, mild epigastric tenderness , guarding or rigidity, no organomegaly EXTREMITIES: No edema of feet. - Labs CBC & Chem 7: 05/02/21 08:56 05/02/21 08:56 Labs: Abnormal Lab Results - Last 24 Hours (Table) 05/02/21 05/02/21 05/02/21 Range/Units 07:14 08:56 08:56 WBC 3.2 L (3.8-10.6) k/uL Sodium 134 L (137-145) mmol/L Chloride 108 H (98-107) mmol/L Carbon Dioxide 20 L (22-30) mmol/L BUN <2 L (7-17) mg/dL Creatinine 0.42 L (0.52-1.04) mg/dL Glucose 116 H (74-99) mg/dL POC Glucose (mg/dL) 104 H (75-99) mg/dL AST 69 H (14-36) U/L ALT 37 H (4-34) U/L Albumin 3.2 L (3.5-5.0) g/dL Lipase 498 H (23-300) U/L 05/02/21 Range/Units 11:30 WBC (3.8-10.6) k/uL Sodium (137-145) mmol/L Chloride (98-107) mmol/L Carbon Dioxide (22-30) mmol/L BUN (7-17) mg/dL Creatinine (0.52-1.04) mg/dL Glucose (74-99) mg/dL POC Glucose (mg/dL) 112 H (75-99) mg/dL AST (14-36) U/L ALT (4-34) U/L Albumin (3.5-5.0) g/dL Lipase (23-300) U/L Microbiology - Last 24 Hours (Table) 04/26/21 10:30 Blood Culture - Final Blood No Growth after 144 hours 04/26/21 10:58 Blood Culture - Final Blood No Growth after 144 hours 04/27/21 18:24 Blood Culture - Preliminary Blood No Growth after 96 hours Assessment and Plan (1) COVID-19 Current Visit: Yes Status: Acute Code(s): U07.1 - COVID-19 SNOMED Code(s): 750187961 (2) Chronic pancreatitis Current Visit: Yes Status: Acute Code(s): K86.1 - OTHER CHRONIC PANCREATITIS SNOMED Code(s): 220523184 Plan: Patient with a fever likely secondary to COVID-19 infection as well as pancreatitis there is no evidence of any pancreatic pseudocyst or an abscess , the patient fever has resolved and no fever recorded last 4 days and the patient respiratory status is stable without need for supplemental oxygen patient is currently covered with supportive treatment and there is no need for systemic antibiotic or steroid therapy, pain management per admitting team Time with Patient: Less than 30
[2021-05-02 17:01] LABS: Glucose,Whole Blood 105 mg/dL (75-99)
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
[2021-05-02] MEDS: IBUPROFEN 400 MG TAB PO PRN (17:58)
[2021-05-02] MEDS: SODIUM CHLORIDE 0.9% 1,000 ML IV SCH (17:59)
[2021-05-02 19:53] LABS: Glucose,Whole Blood 107 mg/dL (75-99)
[2021-05-02] MEDS: traZODone HCL 100 MG TAB PO SCH (23:04)
[2021-05-02] MEDS: QUEtiapine 200 MG TAB PO SCH (23:04)
[2021-05-03] MEDS: SODIUM CHLORIDE 0.9% 1,000 ML IV SCH ×2 (06:10→22:48)
[2021-05-03 07:06] LABS: Glucose,Whole Blood 123 mg/dL (75-99)
[2021-05-03] MEDS: HYDROcodone/APAP 5-325MG 1 EACH TAB PO PRN ×3 (09:37→22:00)
[2021-05-03] MEDS: QUEtiapine 50 MG TAB PO SCH ×2 (09:37→17:21)
[2021-05-03] MEDS: ASCORBIC ACID 500 MG TAB PO SCH (09:37)
[2021-05-03 11:36] LABS: Glucose,Whole Blood 134 mg/dL (75-99)
[2021-05-03 13:25] LABS: ALT 31 U/L (4-34); AST 64 U/L (14-36); African American GFR (CKD) >90 (>60 ml/min/1.73 sqM); Albumin 3.8 g/dL (3.5-5.0); Alkaline Phosphatase 70 U/L (38-126); Anion Gap 12 mmol/L; Blood Urea Nitrogen 3 mg/dL (7-17); Calcium 10.5 mg/dL (8.4-10.2); Carbon Dioxide 15 mmol/L (22-30); Chloride 109 mmol/L (98-107); Globulin 3.8 g/dL; Glucose 142 mg/dL (74-99); Non-African American GFR(CKD) >90 (>60 ml/min/1.73 sqM); Sodium 136 mmol/L (137-145); Total Protein 7.6 g/dL (6.3-8.2)
[2021-05-03 13:29] LABS: Potassium 5.3 mmol/L (3.5-5.1)
[2021-05-03] MEDS ORDERED: DICYCLOMINE 10 MG CAP PO PRN (14:24)
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
[2021-05-03] MEDS: IBUPROFEN 400 MG TAB PO PRN (17:21)
[2021-05-03] MEDS: traZODone HCL 100 MG TAB PO SCH (22:00)
[2021-05-03] MEDS: QUEtiapine 200 MG TAB PO SCH (22:00)
[2021-05-03] MEDS: DICYCLOMINE 10 MG CAP PO PRN (22:00)
--- NOTE | 2021-05-03 22:49 | P.PN ---
Subjective Progress Note Date: 05/03/21 Principal diagnosis: Covid19 pneumonia and pancreatitis Patient is a 30-year female presented to hospital with abdominal pain in this patient did have evidence of pancreatitis with elevated lipase also have a positive COVID test. On today's evaluation that is 05/03/2021 the patient remains to be afebrile, the patient is breathing comfortably on room air and is currently sending 100% , the patient denies chest pain , however the patient has been complaining of abdomin al pain and swelling that [employer] is not helping patient did have some nausea but no vomiting denies having any diarrhea Objective - Vital Signs Vital signs: Vital Signs Temp 98.5 F 05/03/21 16:55 Pulse 125 H 05/03/21 16:55 Resp 18 05/03/21 16:55 BP 121/83 05/03/21 16:55 Pulse Ox 100 05/03/21 16:55 Intake & Output 05/03/21 05/03/21 05/04/21 06:59 18:59 06:59 Other: Voiding Method Toilet Toilet # Voids 1 - Exam GENERAL DESCRIPTION: Middle-aged female lying in bed, no distress. No tachypnea or accessory muscle of respiration use. LUNGS: Unlabored breathing. Clear to auscultation anteriorly. No wheeze or crackle. HEART: S1, S2, regular rate and rhythm. No loud murmur ABDOMEN: Soft, mild epigastric tenderness , guarding or rigidity, no organomeg shanika EXTREMITIES: No edema of feet. - Labs CBC & Chem 7: 05/02/21 08:56 05/03/21 12:58 Labs: Abnormal Lab Results - Last 24 Hours (Table) 05/03/21 05/03/21 05/03/21 Range/Units 07:02 11:29 12:58 Sodium 136 L (137-145) mmol/L Potassium 5.3 H (3.5-5.1) mmol/L Chloride 109 H (98-107) mmol/L Carbon Dioxide 15 L (22-30) mmol/L BUN 3 L (7-17) mg/dL Creatinine 0.40 L (0.52-1.04) mg/dL Glucose 142 H (74-99) mg/dL POC Glucose (mg/dL) 123 H 134 H (75-99) mg/dL Calcium 10.5 H (8.4-10.2) mg/dL AST 64 H (14-36) U/L Microbiology - Last 24 Hours (Table) 04/27/21 18:24 Blood Culture - Final Blood No Growth after 144 hours Assessment and Plan (1) COVID-19 Current Visit: Yes Status: Acute Code(s): U07.1 - COVID-19 SNOMED Code(s): 448433542 (2) Chronic pancreatitis Current Visit: Yes Status: Acute Code(s): K86.1 - OTHER CHRONIC PANCREATITIS SNOMED Code(s): 292392537 Plan: Patient with a fever likely secondary to COVID-19 infection as well as pancreatitis there is no evidence of any pancreatic pseudocyst or an abscess , the patient fever has resolved and no fever recorded last 5 days, the patient respiratory status is stable without need for supplemental oxygen patient is currently covered with supportive treatment and there is no need for systemic antibiotic or steroid therapy, Time with Patient: Less than 30
[2021-05-04] MEDS: ACETAMINOPHEN TAB 325 MG TAB PO PRN (00:33)
[2021-05-04] MEDS: IBUPROFEN 400 MG TAB PO PRN ×2 (00:34→16:13)
[2021-05-04] MEDS: DICYCLOMINE 10 MG CAP PO PRN ×2 (02:28→08:41)
[2021-05-04] MEDS: HYDROcodone/APAP 5-325MG 1 EACH TAB PO PRN (05:56)
[2021-05-04 07:25] LABS: African American GFR (CKD) >90 (>60 ml/min/1.73 sqM); Anion Gap 7 mmol/L; Blood Urea Nitrogen 3 mg/dL (7-17); Calcium 10.2 mg/dL (8.4-10.2); Carbon Dioxide 23 mmol/L (22-30); Chloride 107 mmol/L (98-107); Glucose 109 mg/dL (74-99); Non-African American GFR(CKD) >90 (>60 ml/min/1.73 sqM); Sodium 137 mmol/L (137-145)
[2021-05-04] MEDS: QUEtiapine 50 MG TAB PO SCH ×2 (08:41→16:12)
[2021-05-04] MEDS: ASCORBIC ACID 500 MG TAB PO SCH (08:41)
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
[2021-05-04] MEDS ORDERED: HYDROcodone/APAP 5-325MG 1 EACH TAB PO PRN (13:24)
[2021-05-04] MEDS: SODIUM CHLORIDE 0.9% 1,000 ML IV SCH (20:01)
[2021-05-04] MEDS: QUEtiapine 200 MG TAB PO SCH (20:03)
[2021-05-04] MEDS: traZODone HCL 100 MG TAB PO SCH (20:03)
--- NOTE | 2021-05-04 20:32 | P.PN ---
Subjective Progress Note Date: 05/04/21 Principal diagnosis: Covid19 pneumonia and pancreatitis Patient is a 30-year female presented to hospital with abdominal pain in this patient did have evidence of pancreatitis with elevated lipase also have a positive COVID test. On today's evaluation that is 05/04/2021 the patient continues to be afebrile, the patient is breathing comfortably on room air , the patient denies chest pain , the patient has been complaining of abdominal pain and mentioning that [place] is not helping her patient did have some nausea but no vomiting denies having any diarrhea Objective - Vital Signs Vital signs: Vital Signs Temp 98.1 F 05/04/21 17:14 Pulse 90 05/04/21 20:10 Resp 18 05/04/21 20:10 BP 105/70 05/04/21 17:14 Pulse Ox 97 05/04/21 17:14 Intake & Output 05/04/21 05/04/21 05/05/21 06:59 18:59 06:59 Other: Voiding Method Toilet Toilet Toilet # Voids 3 - Exam GENERAL DESCRIPTION: Middle-aged female lying in bed, no distress. No tachypnea or accessory muscle of respiration use. LUNGS: Unlabored breathing. Clear to auscultation anteriorly. No wheeze or crackle. HEART: S1, S2, regular rate and rhythm. No loud murmur ABDOMEN: Soft, mild epigastric tenderness , guarding or rigidity, no organomegaly EXTREMITIES: No edema of feet. - Labs CBC & Chem 7: 05/02/21 08:56 05/04/21 05:55 Labs: Abnormal Lab Results - Last 24 Hours (Table) 05/04/21 Range/Units 05:55 BUN 3 L (7-17) mg/dL Creatinine 0.42 L (0.52-1.04) mg/dL Glucose 109 H (74-99) mg/dL Microbiology - Last 24 Hours (Table) 04/27/21 18:24 Blood Culture - Final Blood No Growth after 144 hours Assessment and Plan (1) COVID-19 Current Visit: Yes Status: Acute Code(s): U07.1 - COVID-19 SNOMED Code(s): 444702462 (2) Chronic pancreatitis Current Visit: Yes Status: Acute Code(s): K86.1 - OTHER CHRONIC PANCREATITIS SNOMED Code(s): 401899572 Plan: Patient with a fever likely secondary to COVID-19 infection as well as pancreatitis there is no evidence of any pancreatic pseudocyst or an abscess , the patient fever has resolved and no fever recorded last few days, the patient respiratory status is stable without need for supplemental oxygen, patient to continue with current supportive treatment and no need for systemic antibiotic therapy, Time with Patient: Less than 30
[2021-05-05] MEDS: SODIUM CHLORIDE 0.9% 1,000 ML IV SCH ×2 (02:51→17:19)
[2021-05-05] MEDS: IBUPROFEN 400 MG TAB PO PRN (05:00)
[2021-05-05] MEDS: ACETAMINOPHEN TAB 325 MG TAB PO PRN ×2 (08:55→19:32)
[2021-05-05] MEDS: QUEtiapine 50 MG TAB PO SCH ×2 (08:55→17:21)
[2021-05-05] MEDS: ASCORBIC ACID 500 MG TAB PO SCH (08:55)
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
[2021-05-05 14:51] LABS: C. trachomatis,PCR Negative (Neg,Equiv); Chlamydia trachomatis Source Urine; N. gonorrhoeae,PCR Negative (Neg,Equiv); Neisseria Source Urine
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
[2021-05-05] MEDS: QUEtiapine 200 MG TAB PO SCH (19:32)
[2021-05-05] MEDS: traZODone HCL 100 MG TAB PO SCH (19:32)
--- NOTE | 2021-05-05 23:00 | P.PN ---
Subjective Progress Note Date: 05/05/21 Principal diagnosis: Covid19 pneumonia and pancreatitis Patient is a 30-year female presented to hospital with abdominal pain in this patient did have evidence of pancreatitis with elevated lipase also have a positive COVID test. On today's evaluation that is 05/05/2021 the patient remains to be afebrile, the patient is breathing comfortably on room air , the patient denies chest pain, the patient abdominal pain is currently controlled , patient did have some nausea but no vomiting denies having any diarrhea Objective - Vital Signs Vital signs: Vital Signs Temp 98.5 F 05/05/21 08:41 Pulse 103 H 05/05/21 08:41 Resp 17 05/05/21 08:41 BP 119/82 05/05/21 08:41 Pulse Ox 94 L 05/05/21 08:41 Intake & Output 05/04/21 05/05/21 05/05/21 18:59 06:59 18:59 Weight 97.069 kg Other: Voiding Method Toilet Toilet # Voids 1 - Exam GENERAL DESCRIPTION: Middle-aged female lying in bed, no distress. No tachypnea or accessory muscle of respiration use. LUNGS: Unlabored breathing. Clear to auscultation anteriorly. No wheeze or crackle. HEART: S1, S2, regular rate and rhythm. No loud murmur ABDOMEN: Soft, mild epigastric tenderness , guarding or rigidity, no organomegaly EXTREMITIES: No edema of feet. - Labs CBC & Chem 7: 05/02/21 08:56 05/04/21 05:55 Labs: Abnormal Lab Results - Last 24 Hours (Table) 05/05/21 Range/Units 11:15 Coronavirus (PCR) Detected A (Not Detectd) Assessment and Plan (1) COVID-19 Current Visit: Yes Status: Acute Code(s): U07.1 - COVID-19 SNOMED Code(s): 723724388 (2) Chronic pancreatitis Current Visit: Yes Status: Acute Code(s): K86.1 - OTHER CHRONIC PANCREATITIS SNOMED Code(s): 727388537 Plan: Patient with a fever likely secondary to COVID-19 infection as well as pancreatitis there is no evidence of any pancreatic pseudocyst or an abscess , the patient fever has resolved and no fever recorded last few days, the patient respiratory status is stable without need for supplemental oxygen, patient is currently covered with current supportive treatment and there is no need for antibiotics or steroids Time with Patient: Less than 30
[2021-05-06] MEDS: QUEtiapine 50 MG TAB PO SCH (02:51)
[2021-05-06] MEDS: SODIUM CHLORIDE 0.9% 1,000 ML IV SCH (04:59)
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
[2021-05-06] MEDS: ASCORBIC ACID 500 MG TAB PO SCH (08:42)
[2021-05-06] MEDS: ACETAMINOPHEN TAB 325 MG TAB PO PRN (08:42)
[2021-05-06 10:43] VITALS: BP 117/82; PULSE 73; RESP 17; TEMP 98.7
[2021-05-06] MEDS ORDERED: QUEtiapine 100 MG TAB PO SCH (21:00)
[2021-05-06] MEDS ORDERED: QUEtiapine 50 MG TAB PO SCH (21:00)
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
[2021-05-07] MEDS ORDERED: QUEtiapine 50 MG TAB PO SCH (09:00)
== END 2021-05-06 12:27 | disposition home or self-care (01) | DRG 871 ==
LOC: EC 09:28 → 4SSUR 12:27
PROVIDERS: ADMIT Hospitalist; ATTEND Hospitalist
DX: A41.9 Sepsis, unspecified organism (principal); K85.90 Acute pancreatitis without necrosis or infection, unspecified; U07.1 COVID-19; K86.1 Other chronic pancreatitis; R45.851 Suicidal ideations; T74.21XA Adult sexual abuse, confirmed, initial encounter; D72.810 Lymphocytopenia; E11.9 Type 2 diabetes mellitus without complications; E66.9 Obesity, unspecified; E78.1 Pure hyperglyceridemia; F31.9 Bipolar disorder, unspecified; F43.10 Post-traumatic stress disorder, unspecified; F43.20 Adjustment disorder, unspecified; F60.3 Borderline personality disorder; J45.909 Unspecified asthma, uncomplicated; K21.9 Gastro-esophageal reflux disease without esophagitis; K29.70 Gastritis, unspecified, without bleeding; K76.0 Fatty (change of) liver, not elsewhere classified; N89.8 Other specified noninflammatory disorders of vagina; Z20.2 Contact with and (suspected) exposure to infections with a predominantly sexual mode of transmission; R94.31 Abnormal electrocardiogram [ECG] [EKG]; E11.65 Type 2 diabetes mellitus with hyperglycemia; Z68.36 Body mass index [BMI] 36.0-36.9, adult; M19.90 Unspecified osteoarthritis, unspecified site; G43.909 Migraine, unspecified, not intractable, without status migrainosus; N94.2 Vaginismus; Z71.3 Dietary counseling and surveillance; Z79.899 Other long term (current) drug therapy; Z82.49 Family history of ischemic heart disease and other diseases of the circulatory system; Z86.32 Personal history of gestational diabetes; Z59.01 Sheltered homelessness; Z91.030 Bee allergy status; Z91.040 Latex allergy status; Z88.5 Allergy status to narcotic agent; Z88.0 Allergy status to penicillin; Z88.2 Allergy status to sulfonamides; Z88.8 Allergy status to other drugs, medicaments and biological substances; Z91.018 Allergy to other foods; Z91.048 Other nonmedicinal substance allergy status; Z98.890 Other specified postprocedural states; Z81.1 Family history of alcohol abuse and dependence; Z82.61 Family history of arthritis; Z82.0 Family history of epilepsy and other diseases of the nervous system; Z81.3 Family history of other psychoactive substance abuse and dependence
CPT/HCPCS: 36415; 74022; 74177; 76705; 76856; 80048; 80053; 80061; 81003; 81025; 82150; 82728; 83605; 83615; 83690; 84145; 85025; 85379; 85652; 86140; 87040; 87491; 87591; 87635; 87808; 93005; 96361; 96374; 96375; 96376; 99285

== ENCOUNTER 2021-05-16 19:05 | Observation (INO) | payer OTHER ==
--- NOTE | 2021-05-16 19:28 | ED ---
General Adult HPI - General Chief complaint: Abdominal Pain Stated complaint: abd pain Time Seen by Provider: 05/16/21 19:17 Source: patient Mode of arrival: ambulatory Limitations: no limitations - History of Present Illness Initial comments: Dictation was produced using [employer] dictation software. please excuse any grammatical, word or spelling errors. Chief Complaint: 30-year-old female well-known to emergency department presents to the emergency department today for abdominal pain History of Present Illness: Patient is a 30-year-old female she is well-known to emergency department. Patient states she is here today for abdominal pain. She states it is epigastric and right upper quadrant. Patient denies any history of cholecystectomy or appendectomy. She has abdominal history for laparoscopic surgery for endometriosis. Patient reports history of pancreatitis. She states her pain has been recurrence of the last 48 hours. She feels like her pain represents her pancreatitis. She states she's been hospitalized pink otitis in the past. Patient denies any fever. No nausea vomiting. No vaginal discharge or diarrhea. Said her pain is so bad that she can eat or drink. The ROS documented in this emergency department record has been reviewed and confirmed by me. Those systems with pertinent positive or negative responses have been documented in the HPI. All other systems are other negative and/or noncontributory. PHYSICAL EXAM: General Impression: Alert and oriented x3, not in acute distress HEENT: Normocephalic atraumatic, extra-ocular movements intact, pupils equal and reactive to light bilaterally, mucous membranes moist. Cardiovascular: Heart regular rate and rhythm Chest: Able to complete full sentences, no retractions, no tachypnea Abdomen: abdomen soft, mild palpatory tenderness to the epigastric or right upper quadrant area, negative Velasquez sign, non-distended, no organomegaly Musculoskeletal: Pulses present and equal in all extremities, no peripheral edema Motor: no focal deficits noted Neurological: CN II-XII grossly intact, no focal motor or sensory deficits noted Skin: Intact with no visualized rashes Psych: Normal affect and mood ED course: 30-year-old male presents with abdominal pain. Patient's well-known to emergency department. Chart review shows that patient was recently admitted and discharged her hospital 1 week ago. Vital signs upon arrival shows heart rate of 125, rest of vital signs within acceptable limits. Chart review shows that patient was just discharged from the hospital on May 06 which was 10 days ago. She was admitted to the hospital for acute severe pancreatitis CBC, metabolic panel is within acceptable limits. Lipase is 1350. Clinical presentation consistent with recurrent pancreatitis. Patient be admitted. Case discussed with Peter Ramos who is willing to accept patients care admission on behalf of [facility] hospitalist group. EKG interpretation: Ventricular rate 95, normal sinus rhythm, NJ interval 150, QRS 70, QTC 482. No NJ prolongation, no QTC prolongation, no ST or T-wave changes noted. EKG compared to may 06 2021 showing no changes. Overall, this EKG is unremarkable - Related Data Home Medications Medication Instructions Recorded Confirmed Atorvastatin Calcium [Lipitor] 40 mg PO DAILY 05/16/21 05/16/21 Dicyclomine [Bentyl] 10 mg PO Q4HR PRN 05/16/21 05/16/21 Famotidine [Pepcid] 20 mg PO BID PRN 05/16/21 05/16/21 Fenofibrate [Lofibra] 54 mg PO DAILY 05/16/21 05/16/21 Ondansetron HCl [Zofran] 4 mg PO Q8H PRN 05/16/21 05/16/21 Previous Rx's Medication Instructions Recorded Acetaminophen Tab [Tylenol] 650 mg PO Q6HR PRN tab 05/05/21 Ascorbic Acid [Vitamin C] 1,000 mg PO DAILY #30 tab 05/05/21 traZODone HCL [Desyrel] 100 mg PO HS tab 05/05/21 QUEtiapine [SEROquel] 50 mg PO DAILY tab 05/06/21 QUEtiapine [SEROquel] 100 mg PO HS tab 05/06/21 Allergies Allergy/AdvReac Type Severity Reaction Status Date / Time bee pollen Allergy Severe Anaphylaxis Verified 05/16/21 20:07 haloperidol [From Haldol] Allergy Severe QUIT Verified 05/16/21 20:07 BREATHING haloperidol lactate Allergy Severe QUIT Verified 05/16/21 20:07 [From Haldol] BREATHING latex Allergy Severe RASH-THROAT Verified 05/16/21 20:07 CLOSES [place] Allergy Anaphylaxis Verified 05/16/21 20:07 coconut Allergy Anaphylaxis Verified 05/16/21 20:07 pineapple Allergy Anaphylaxis Verified 05/16/21 20:07 prednisone Allergy THROAT Verified 05/16/21 20:07 SWELLS spider venom Allergy Swelling Verified 05/16/21 20:07 Sulfa (Sulfonamide Allergy THROAT Verified 05/16/21 20:07 Antibiotics) SWELLS venom-wasp Allergy Swelling Verified 05/16/21 20:07 venom-wasp protein Allergy Swelling Verified 05/16/21 20:07 promethazine HCl AdvReac Severe Nausea & Verified 05/16/21 20:07 [From Phenergan] Vomiting tramadol AdvReac Severe Nausea & Verified 05/16/21 20:07 Vomiting amoxicillin AdvReac Nausea & Verified 05/16/21 20:07 Vomiting ANTS AdvReac Mild Anaphylaxis Uncoded 04/08/21 23:14 Review of Systems ROS Statement: Those systems with pertinent positive or pertinent negative responses have been documented in the HPI. ROS Other: All systems not noted in ROS Statement are negative. Past Medical History Past Medical History: Asthma, Diabetes Mellitus, GERD/Reflux Additional Past Medical History / Comment(s): migraines, degenerative disk disease, endometriosis, lupus, pancreatitis History of Any Multi-Drug Resistant Organisms: None Reported Past Surgical History: Orthopedic Surgery Additional Past Surgical History / Comment(s): laparoscopc surgery for endometriosis, cyst removed from left foot, EGD, Past Anesthesia/Blood Transfusion Reactions: Previous Problems w/ Anesthesia Additional Past Anesthesia/Blood Transfusion Reaction / Comment(s): hard to wake up for 48-72 hours after laparoscopic surgery-was in hosp. for 3 days Past Psychological History: Anxiety, Depression, PTSD Smoking Status: Never smoker Past Alcohol Use History: None Reported Past Drug Use History: Marijuana - Past Family History Mother Family Medical History: No Reported History Additional Family Medical History / Comment(s): hx migraines Father Family Medical History: Coronary Artery Disease (CAD), Hypertension Additional Family Medical History / Comment(s): ddd, alcoholism & drug use General Exam Limitations: no limitations Course Vital Signs 05/16/21 05/16/21 19:06 21:36 Temperature 98.4 F 98.4 F Pulse Rate 125 H 121 H Respiratory 18 18 Rate Blood Pressure 130/95 132/85 O2 Sat by Pulse 98 98 Oximetry Medical Decision Making - Lab Data Result diagrams: 05/16/21 19:34 05/16/21 21:15 Lab Results 05/16/21 05/16/21 Range/Units 19:34 20:03 WBC 3.5 L (3.8-10.6) k/uL RBC 4.58 (3.80-5.40) m/uL Hgb 14.9 (11.4-16.0) gm/dL Hct 43.6 (34.0-46.0) % MCV 95.0 (80.0-100.0) fL MCH 32.5 (25.0-35.0) pg MCHC 34.2 (31.0-37.0) g/dL RDW 14.8 (11.5-15.5) % Plt Count 208 (150-450) k/uL MPV 7.6 Neutrophils % 47 % Lymphocytes % 44 % Monocytes % 4 % Eosinophils % 2 % Basophils % 0 % Neutrophils # 1.7 (1.3-7.7) k/uL Lymphocytes # 1.6 (1.0-4.8) k/uL Monocytes # 0.1 (0-1.0) k/uL Eosinophils # 0.1 (0-0.7) k/uL Basophils # 0.0 (0-0.2) k/uL Sodium QNS Potassium QNS Chloride QNS Carbon Dioxide QNS Anion Gap QNS BUN QNS Creatinine QNS Est GFR (CKD-EPI)AfAm QNS Est GFR (CKD-EPI)NonAf QNS Glucose QNS Calcium QNS Total Bilirubin 0.8 (0.2-1.3) mg/dL AST 28 (14-36) U/L ALT 15 (4-34) U/L Alkaline Phosphatase 68 (38-126) U/L Total Protein QNS Albumin QNS Lipase 1350 H (23-300) U/L HCG, Quant <2.4 mIU/mL Disposition Clinical Impression: Pancreatitis Disposition: ADMITTED IP TO THIS HOSP Condition: Fair
[2021-05-16] MEDS ORDERED: KETOROLAC 30 MG/ML 1 ML VIAL IVP STA (19:33)
[2021-05-16 19:38] LABS: Basophils % (A) 0 %; Eosinophils # (A) 0.1 k/uL (0-0.7); Eosinophils % (A) 2 %; HCT 43.6 % (34.0-46.0); HGB 14.9 gm/dL (11.4-16.0); Lymphocytes # (A) 1.6 k/uL (1.0-4.8); Lymphocytes % (A) 44 %; MCH 32.5 pg (25.0-35.0); MCHC 34.2 g/dL (31.0-37.0); Mean Platelet Volume 7.6; Monocytes # (A) 0.1 k/uL (0-1.0); Monocytes % (A) 4 %; Neutrophils # (A) 1.7 k/uL (1.3-7.7); Neutrophils % (A) 47 %; Platelet Count 208 k/uL (150-450); RBC 4.58 m/uL (3.80-5.40); RDW 14.8 % (11.5-15.5); WBC 3.5 k/uL (3.8-10.6)
[2021-05-16 20:40] LABS: ALT 15 U/L (4-34); AST 28 U/L (14-36); Alkaline Phosphatase 68 U/L (38-126); Lipase 1350 U/L (23-300); Total Bilirubin 0.8 mg/dL (0.2-1.3)
--- NOTE | 2021-05-16 20:40 | US ---
EXAMINATION TYPE: US gallbladder DATE OF EXAM: 05/16/2021 COMPARISON: NONE CLINICAL HISTORY: right upper quadrant/epigastric pain, hx of pancre. patient is in pain and can't mo ve or hold breath to optimize imaging, h/o pancreatitis EXAM MEASUREMENTS: Liver Length: 16.3 cm Gallbladder Wall: 0.2 cm CBD: 0.4 cm Right Kidney: unable to measure due to bowel gas *extensive bowel gas and notes above limits exam Pancreas: not seen due to bowel gas Liver: extremely limited due to bowel gas and intercostal views only Gallbladder: wnl Evidence for sonographic Velasquez's sign: no CBD: wnl Right Kidney: unable to fully view due to bowel gas IMPRESSION: Limited exam shows no gallstones. No dilated ducts.
[2021-05-16 20:47] LABS: HCG,Quantitative Serum <2.4 mIU/mL
[2021-05-16 20:49] LABS: African American GFR (CKD) QNS (>60 ml/min/1.73 sqM); Anion Gap QNS mmol/L; Blood Urea Nitrogen QNS mg/dL (7-17); Calcium QNS mg/dL (8.4-10.2); Carbon Dioxide QNS mmol/L (22-30); Chloride QNS mmol/L (98-107); Glucose QNS mg/dL (74-99); Non-African American GFR(CKD) QNS (>60 ml/min/1.73 sqM); Potassium QNS mmol/L (3.5-5.1); Sodium QNS mmol/L (137-145); Total Protein QNS g/dL (6.3-8.2)
[2021-05-16] MEDS ORDERED: SODIUM CHLORIDE 0.9% 1,000 ML IV STA ×2 (20:49)
[2021-05-16 20:50] LABS: Albumin QNS g/dL (3.5-5.0)
[2021-05-16] MEDS ORDERED: ONDANSETRON 4 MG/2 ML VIAL IVP PRN (21:04)
[2021-05-16] MEDS ORDERED: NALOXONE 0.4 MG/ML 1 ML VIAL IV PRN (21:04)
[2021-05-16 22:12] LABS: African American GFR (CKD) >90 (>60 ml/min/1.73 sqM); Albumin 3.8 g/dL (3.5-5.0); Blood Urea Nitrogen 4 mg/dL (7-17); Calcium 10.3 mg/dL (8.4-10.2); Carbon Dioxide 19 mmol/L (22-30); Chloride 112 mmol/L (98-107); Glucose 118 mg/dL (74-99); Non-African American GFR(CKD) >90 (>60 ml/min/1.73 sqM); Potassium 3.5 mmol/L (3.5-5.1); Sodium 142 mmol/L (137-145)
[2021-05-16] MEDS: MORPHINE SULFATE 4 MG/ML SYRINGE IV PRN (22:42)
[2021-05-16] MEDS: SODIUM CHLORIDE 0.9% 1,000 ML IV SCH (22:43)
[2021-05-16] MEDS ORDERED: ACETAMINOPHEN TAB 325 MG TAB PO PRN (23:42)
[2021-05-16] MEDS ORDERED: DICYCLOMINE 10 MG CAP PO PRN (23:42)
[2021-05-16] MEDS ORDERED: diphenhydrAMINE 50 MG/ML 1 ML VIAL IVP PRN (23:43)
[2021-05-16] MEDS ORDERED: traZODone HCL 100 MG TAB PO SCH (23:45)
[2021-05-16] MEDS ORDERED: QUEtiapine 100 MG TAB PO SCH (23:45)
[2021-05-17 04:16] VITALS: BP 116/80; PULSE 80; RESP 18; TEMP 98.1
[2021-05-17] MEDS: MORPHINE SULFATE 4 MG/ML SYRINGE IV PRN (04:16)
[2021-05-17] MEDS: SODIUM CHLORIDE 0.9% 1,000 ML IV SCH (08:03)
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
--- NOTE | 2021-05-17 08:32 | P.DS ---
Providers Date of admission: 05/16/21 21:04 Attending physician: Teo Leblanc Primary care physician: Stated None Hospital Course: Refer to [facility] for details Patient Condition at Discharge: Fair Plan - Discharge Summary New Discharge Prescriptions: Continue traZODone HCL [Desyrel] 100 mg PO HS tab Ascorbic Acid [Vitamin C] 1,000 mg PO DAILY #30 tab QUEtiapine [SEROquel] 100 mg PO HS tab QUEtiapine [SEROquel] 50 mg PO DAILY tab Fenofibrate [Lofibra] 54 mg PO DAILY Ondansetron HCl [Zofran] 4 mg PO Q8H PRN PRN Reason: Nausea And Vomiting Acetaminophen Tab [Tylenol] 650 mg PO Q6HR PRN tab PRN Reason: Mild Pain Or Fever > 100.5 Atorvastatin Calcium [Lipitor] 40 mg PO DAILY Famotidine [Pepcid] 20 mg PO BID PRN PRN Reason: Gi Upset Dicyclomine [Bentyl] 10 mg PO Q4HR PRN PRN Reason: stomach Spasms Discharge Medication List Acetaminophen Tab [Tylenol] 650 mg PO Q6HR PRN tab 05/05/21 [Rx] Ascorbic Acid [Vitamin C] 1,000 mg PO DAILY #30 tab 05/05/21 [Rx] traZODone HCL [Desyrel] 100 mg PO HS tab 05/05/21 [Rx] QUEtiapine [SEROquel] 50 mg PO DAILY tab 05/06/21 [Rx] QUEtiapine [SEROquel] 100 mg PO HS tab 05/06/21 [Rx] Atorvastatin Calcium [Lipitor] 40 mg PO DAILY 05/16/21 [History] Dicyclomine [Bentyl] 10 mg PO Q4HR PRN 05/16/21 [History] Famotidine [Pepcid] 20 mg PO BID PRN 05/16/21 [History] Fenofibrate [Lofibra] 54 mg PO DAILY 05/16/21 [History] Ondansetron HCl [Zofran] 4 mg PO Q8H PRN 05/16/21 [History] Follow up Appointment(s)/Referral(s): Kane Damon DO [STAFF PHYSICIAN] - 1 Week Discharge Disposition: HOME SELF-CARE
[2021-05-17] MEDS ORDERED: ATORVASTATIN 40 MG TAB PO SCH (09:00)
[2021-05-17] MEDS ORDERED: FAMOTIDINE 20 MG TAB PO PRN (09:00)
[2021-05-17] MEDS ORDERED: FENOFIBRATE 54 MG TAB PO SCH (09:00)
[2021-05-17] MEDS ORDERED: ASCORBIC ACID 500 MG TAB PO SCH (09:00)
[2021-05-17] MEDS ORDERED: QUEtiapine 50 MG TAB PO SCH (09:00)
== END 2021-05-17 11:45 | disposition home or self-care (01) ==
LOC: EC 19:05 → SUPCPDRO 19:05 → 4SSUR 21:04 → 5NMEDONC 22:57
PROVIDERS: ADMIT Hospitalist; ATTEND Hospitalist
DX: R10.11 Right upper quadrant pain (principal); R00.0 Tachycardia, unspecified; R74.8 Abnormal levels of other serum enzymes; R10.13 Epigastric pain; R46.89 Other symptoms and signs involving appearance and behavior; Z20.822 Contact with and (suspected) exposure to COVID-19; E11.9 Type 2 diabetes mellitus without complications; N80.9 Endometriosis, unspecified; K21.9 Gastro-esophageal reflux disease without esophagitis; F43.10 Post-traumatic stress disorder, unspecified; J45.909 Unspecified asthma, uncomplicated; Z91.030 Bee allergy status; Z88.5 Allergy status to narcotic agent; Z88.0 Allergy status to penicillin; Z91.038 Other insect allergy status; Z91.040 Latex allergy status; Z88.6 Allergy status to analgesic agent; Z88.2 Allergy status to sulfonamides; Z88.8 Allergy status to other drugs, medicaments and biological substances; Z91.018 Allergy to other foods; Z79.899 Other long term (current) drug therapy; Z86.16 Personal history of COVID-19; Z86.69 Personal history of other diseases of the nervous system and sense organs; Z82.49 Family history of ischemic heart disease and other diseases of the circulatory system; Z81.3 Family history of other psychoactive substance abuse and dependence; Z84.89 Family history of other specified conditions
CPT/HCPCS: 99285; 96376; 96375 ×2; 96361; 96374; 36415; 93005; 80053; 82040; 82310; 82435; 82565; 82374; 83690; 84132; 84155; 84295; 82947; 84520; 85025; 84702; 87635; 76705; G0378 ×2; J2270 ×2; J1200; J2405; J1885

== ENCOUNTER 2021-07-02 11:17 | Observation (INO) | payer OTHER ==
[2021-07-02] MEDS ORDERED: SODIUM CHLORIDE 0.9% 1,000 ML IV STA (12:17)
[2021-07-02] MEDS ORDERED: ONDANSETRON 4 MG/2 ML VIAL IVP STA (12:17)
[2021-07-02] MEDS ORDERED: ONDANSETRON ODT 4 MG TAB PO STA (12:52)
[2021-07-02 13:23] LABS: Appearance,Urine Cloudy (Clear); Bacteria,Urine Rare /hpf; Bilirubin,Urine Negative (Negative); Blood,Urine Negative (Negative); Color,Urine Yellow; Glucose,Urine (UA) Negative (Negative); Hyaline Casts,Urine 1 /lpf (0-2); Ketones,Urine Negative (Negative); Leukocyte Esterase,Urine Large (Negative); Mucus,Urine Rare /hpf; Nitrite,Urine Negative (Negative); Protein,Urine Negative (Negative); RBC,Urine 3 /hpf (0-5); Specific Gravity,Urine 1.009 (1.001-1.035); Squamous Epithelial Cell,Urine 14 /hpf (0-4); Urobilinogen,Urine <2.0 mg/dL (<2.0); WBC,Urine 49 /hpf (0-5)
--- NOTE | 2021-07-02 13:29 | ED ---
Abdominal Pain HPI - General Chief Complaint: Abdominal Pain Stated Complaint: Abd Pain Time Seen by Provider: 07/02/21 12:08 Source: patient, EMS, RN notes reviewed Mode of arrival: EMS Limitations: no limitations - History of Present Illness Initial Comments: This is a 30-year-old female who is well-known to this facility. She presents to the emergency department for abdominal pain. States the abdominal pain is in the right upper quadrant, and this feels similar to her previous bouts of pancreatitis. Also states that she has nausea and vomiting. Patient was discharged from this facility on 05/17/2021, for a mild elevation in lipase. Patient is noted to have a chronic elevation in her lipase, with some aspect of a chronic pancreatitis. Patient has been noted during prior hospitalizations to be opiate seeking. After discharge, she was advised to follow-up with a fretted instruments inspector in either [place] or at the [facility] for ev aluation of recurrent symptoms. Patient states that it has been very hard to get into a fretted instruments inspector here, however she has not made an appointment. States that she is trying to see a fretted instruments inspector in [place] or at the [facility] but she is unable to afford the gas in order to get there at this time. However, has not yet contacted a fretted instruments inspector there for an appointment. States that in the last 2 days she has had 3 syncopal episodes. States that she fell forward, but denies hitting her head. Unsure how long she was on the ground for. Also reports that 9 years ago, shortly after she gave , she had syncopal episodes as well. After several episodes, she passed out and ended up on a ventilator for 3-1/2 months. States that it was never determined why she was having these episodes. MD Complaint: abdominal pain Location: RUQ Radiation: none Migration to: no migration Severity: severe Quality: cramping, stabbing, sharp Consistency: constant Associated Symptoms: nausea, vomiting - Related Data Home Medications Medication Instructions Recorded Confirmed Atorvastatin Calcium [Lipitor] 40 mg PO DAILY 05/16/21 07/02/21 ondansetron HCL [Zofran] 4 mg PO Q8H PRN 05/16/21 07/02/21 Butalb/APAP/Caff 50-325-40Mg 1 tab PO Q4H PRN 07/02/21 07/02/21 [Fioricet 50-325-40] Emtricitabine/Tenofovir (Tdf) 1 tab PO DAILY 07/02/21 07/02/21 [Truvada 200 mg-300 mg Tablet] Escitalopram [Lexapro] 10 mg PO DAILY 07/02/21 07/02/21 Fenofibrate [Lofibra] 160 mg PO DAILY 07/02/21 07/02/21 Midodrine HCl 5 mg PO BID PRN 07/02/21 07/02/21 Pantoprazole [Protonix] 40 mg PO DAILY 07/02/21 07/02/21 Raltegravir Potassium [Isentress] 400 mg PO BID 07/02/21 07/02/21 hydrOXYzine pamoate [hydrOXYzine 25 mg PO TID PRN 07/02/21 07/02/21 PAMOATE] metFORMIN HCL 500 mg PO BID 07/02/21 07/02/21 polyethylene glycoL 3350 [Miralax] 17 gm PO DAILY PRN 07/02/21 07/02/21 traZODone HCL [Desyrel] 250 mg PO HS 07/02/21 07/02/21 Previous Rx's Medication Instructions Recorded Acetaminophen Tab [Tylenol] 650 mg PO Q6HR PRN tab 05/05/21 Ascorbic Acid [Vitamin C] 1,000 mg PO DAILY #30 tab 05/05/21 Allergies Allergy/AdvReac Type Severity Reaction Status Date / Time bee pollen Allergy Severe Anaphylaxis Verified 07/02/21 17:34 haloperidol [From Haldol] Allergy Severe QUIT Verified 07/02/21 17:34 BREATHING haloperidol lactate Allergy Severe QUIT Verified 07/02/21 17:34 [From Haldol] BREATHING latex Allergy Severe RASH-THROAT Verified 07/02/21 17:34 CLOSES murrieta Allergy Anaphylaxis Verified 07/02/21 17:34 coconut Allergy Anaphylaxis Verified 07/02/21 17:34 pineapple Allergy Anaphylaxis Verified 07/02/21 17:34 prednisone Allergy THROAT Verified 07/02/21 17:34 SWELLS spider venom Allergy Swelling Verified 07/02/21 17:34 Sulfa (Sulfonamide Allergy THROAT Verified 07/02/21 17:34 Antibiotics) SWELLS venom-wasp Allergy Swelling Verified 07/02/21 17:34 venom-wasp protein Allergy Swelling Verified 07/02/21 17:34 promethazine HCl AdvReac Severe Nausea & Verified 07/02/21 17:34 [From Phenergan] Vomiting tramadol AdvReac Severe Nausea & Verified 07/02/21 17:34 Vomiting amoxicillin AdvReac Nausea & Verified 07/02/21 17:34 Vomiting ANTS AdvReac Mild Anaphylaxis Uncoded 04/08/21 23:14 Review of Systems ROS Statement: Those systems with pertinent positive or pertinent negative responses have been documented in the HPI. ROS Other: All systems not noted in ROS Statement are negative. Constitutional: Denies: fever, chills ENT: Denies: ear pain, throat pain Respiratory: Denies: cough, dyspnea Cardiovascular: Denies: chest pain, palpitations Endocrine: Denies: fatigue Gastrointestinal: Reports: abdominal pain, nausea, vomiting. Denies: diarrhea, constipation Genitourinary: Denies: urgency, dysuria Skin: Denies: rash Neurological: Denies: headache Psychiatric: Denies: anxiety, depression Past Medical History Past Medical History: Asthma, Diabetes Mellitus, GERD/Reflux Additional Past Medical History / Comment(s): migraines, degenerative disk disease, endometriosis, lupus, pancreatitis, DM2- diet controlled History of Any Multi-Drug Resistant Organisms: None Reported Past Surgical History: Orthopedic Surgery Additional Past Surgical History / Comment(s): laparoscopc surgery for endomet riosis, cyst removed from left foot, EGD, Past Anesthesia/Blood Transfusion Reactions: Previous Problems w/ Anesthesia Additional Past Anesthesia/Blood Transfusion Reaction / Comment(s): hard to wake up for 48-72 hours after laparoscopic surgery-was in hosp. for 3 days Past Psychological History: Anxiety, Depression, PTSD Smoking Status: Never smoker Past Alcohol Use History: None Reported Past Drug Use History: Marijuana - Past Family History Mother Family Medical History: No Reported History Additional Family Medical History / Comment(s): hx migraines Father Family Medical History: Coronary Artery Disease (CAD), Hypertension Additional Family Medical History / Comment(s): ddd, alcoholism & drug use General Exam Limitations: no limitations General appearance: alert, in distress Head exam: Present: atraumatic, normocephalic, normal inspection Neck exam: Present: normal inspection. Absent: tenderness, meningismus, lymphadenopathy Respiratory exam: Present: normal lung sounds bilaterally. Absent: respiratory distress, wheezes, rales, rhonchi, stridor Cardiovascular Exam: Present: regular rate, normal rhythm, normal heart sounds. Absent: systolic murmur, diastolic murmur, rubs, gallop, clicks GI/Abdominal exam: Present: soft, tenderness (RUQ), rebound, normal bowel sounds. Absent: distended, guarding, rigid, organomegaly, mass Neurological exam: Present: alert, oriented X3, CN II-XII intact Psychiatric exam: Present: anxious Skin exam: Present: warm, dry, intact, normal color. Absent: rash Course Vital Signs 07/02/21 07/02/21 11:18 16:54 Temperature 98.1 F Pulse Rate 77 86 Respiratory 16 16 Rate Blood Pressure 100/69 91/64 O2 Sat by Pulse 99 96 Oximetry Medical Decision Making - Medical Decision Making This is a 30-year-old female who presents to the emergency department with abdominal pain, nausea, and vomiting. This patient is very well-known to this facility. She potentially has chronic pancreatitis, but is also known to be seeking narcotics. Lab work obtained, lipase is elevated, however it is in her normal range and even improved from her prior visit in May. Urinalysis consistent with contamination, but no acute infection. Despite multiple attempts, an IV was not able to be started on the patient, which is a recurrent issue for her. All medications will be given IM or by mouth. Patient is concerned about the syncopal episodes. We discussed that a component of this may be dehydration and not eating. We also discussed the possibility of imaging. Discussed with the patient the risks of radiation exposure with CT scans, especially in young women, in that it can damage the ovaries and lead to fertility problems. Patient states that she is very concerned about the syncopal episodes, and would like to proceed with imaging. The CT scan of the brain revealed no abnormalities. Attempted to control the pain with multiple medications prior to using an opioid. 0.5mg of Dilaudid only offered minimal pain relief. Patient wishes to stay overnight for observation. Patient advised that she cannot be admitted if she does not have an IV. Discussed case with Dr. Granda, she advised continuing with symptomatic management in the ED to see if the patient can be discharged home. Patient given an additional 0.5mg of dilauded and 10mg of Reglan. Patient states that she is still in distress and does not feel comfortable going home at this time. Will try to admit the patient for acute on chronic pancreatitis and symptomatic management. This case was discussed in detail with the attending ED physician. Presentation, findings, and treatment plan discussed in detail as well. - Lab Data Result diagrams: 07/02/21 13:10 07/02/21 13:10 Lab Results 07/02/21 07/02/21 07/02/21 Range/Units 12:47 12:47 13:10 WBC 4.4 (3.8-10.6) k/uL RBC 4.04 (3.80-5.40) m/uL Hgb 12.8 (11.4-16.0) gm/dL Hct 38.5 (34.0-46.0) % MCV 95.1 (80.0-100.0) fL MCH 31.5 (25.0-35.0) pg MCHC 33.2 (31.0-37.0) g/dL RDW 14.1 (11.5-15.5) % Plt Count 235 (150-450) k/uL MPV 8.2 Neutrophils % 71 % Lymphocytes % 21 % Monocytes % 4 % Eosinophils % 2 % Basophils % 1 % Neutrophils # 3.1 (1.3-7.7) k/uL Lymphocytes # 0.9 L (1.0-4.8) k/uL Monocytes # 0.2 (0-1.0) k/uL Eosinophils # 0.1 (0-0.7) k/uL Basophils # 0.0 (0-0.2) k/uL Sodium (137-145) mmol/L Potassium (3.5-5.1) mmol/L Chloride (98-107) mmol/L Carbon Dioxide (22-30) mmol/L Anion Gap mmol/L BUN (7-17) mg/dL Creatinine (0.52-1.04) mg/dL Est GFR (CKD-EPI)AfAm (>60 ml/min/1.73 sqM) Est GFR (CKD-EPI)NonAf (>60 ml/min/1.73 sqM) Glucose (74-99) mg/dL Plasma Lactic Acid Aurelio (0.7-2.0) mmol/L Calcium (8.4-10.2) mg/dL Total Bilirubin (0.2-1.3) mg/dL AST (14-36) U/L ALT (4-34) U/L Alkaline Phosphatase (38-126) U/L Total Protein (6.3-8.2) g/dL Albumin (3.5-5.0) g/dL Amylase (30-110) U/L Lipase (23-300) U/L Urine Color Yellow Urine Appearance Cloudy H (Clear) Urine pH 7.0 (5.0-8.0) Ur Specific Robinson 1.009 (1.001-1.035) Urine Protein Negative (Negative) Urine Glucose (UA) Negative (Negative) Urine Ketones Negative (Negative) Urine Blood Negative (Negative) Urine Nitrite Negative (Negative) Urine Bilirubin Negative (Negative) Urine Urobilinogen <2.0 (<2.0) mg/dL Ur Leukocyte Esterase Large H (Negative) Urine RBC 3 (0-5) /hpf Urine WBC 49 H (0-5) /hpf Ur Squamous Epith Cells 14 H (0-4) /hpf Urine Bacteria Rare H (None) /hpf Hyaline Casts 1 (0-2) /lpf Urine Mucus Rare H (None) /hpf Urine HCG, Qual Not Detected (Not Detectd) 07/02/21 07/02/21 Range/Units 13:10 13:10 WBC (3.8-10.6) k/uL RBC (3.80-5.40) m/uL Hgb (11.4-16.0) gm/dL Hct (34.0-46.0) % MCV (80.0-100.0) fL MCH (25.0-35.0) pg MCHC (31.0-37.0) g/dL RDW (11.5-15.5) % Plt Count (150-450) k/uL MPV Neutrophils % % Lymphocytes % % Monocytes % % Eosinophils % % Basophils % % Neutrophils # (1.3-7.7) k/uL Lymphocytes # (1.0-4.8) k/uL Monocytes # (0-1.0) k/uL Eosinophils # (0-0.7) k/uL Basophils # (0-0.2) k/uL Sodium 134 L (137-145) mmol/L Potassium 4.0 (3.5-5.1) mmol/L Chloride 110 H (98-107) mmol/L Carbon Dioxide 17 L (22-30) mmol/L Anion Gap 7 mmol/L BUN 3 L (7-17) mg/dL Creatinine 0.74 (0.52-1.04) mg/dL Est GFR (CKD-EPI)AfAm >90 (>60 ml/min/1.73 sqM) Est GFR (CKD-EPI)NonAf >90 (>60 ml/min/1.73 sqM) Glucose 157 H (74-99) mg/dL Plasma Lactic Acid Aurelio 1.6 (0.7-2.0) mmol/L Calcium 10.3 H (8.4-10.2) mg/dL Total Bilirubin 0.5 (0.2-1.3) mg/dL AST 20 (14-36) U/L ALT 15 (4-34) U/L Alkaline Phosphatase 55 (38-126) U/L Total Protein 6.7 (6.3-8.2) g/dL Albumin 3.5 (3.5-5.0) g/dL Amylase 32 (30-110) U/L Lipase 484 H (23-300) U/L Urine Color Urine Appearance (Clear) Urine pH (5.0-8.0) Ur Specific Robinson (1.001-1.035) Urine Protein (Negative) Urine Glucose (UA) (Negative) Urine Ketones (Negative) Urine Blood (Negative) Urine Nitrite (Negative) Urine Bilirubin (Negative) Urine Urobilinogen (<2.0) mg/dL Ur Leukocyte Esterase (Negative) Urine RBC (0-5) /hpf Urine WBC (0-5) /hpf Ur Squamous Epith Cells (0-4) /hpf Urine Bacteria (None) /hpf Hyaline Casts (0-2) /lpf Urine Mucus (None) /hpf Urine HCG, Qual (Not Detectd) - Radiology Data Radiology results: report reviewed, image reviewed Disposition Clinical Impression: Acute on chronic pancreatitis Disposition: ADMITTED IP TO THIS [facility] Referrals: None,Stated [Primary Care Provider] - 1-2 days
[2021-07-02 13:39] LABS: Basophils % (A) 1 %; Eosinophils # (A) 0.1 k/uL (0-0.7); Eosinophils % (A) 2 %; HCT 38.5 % (34.0-46.0); HGB 12.8 gm/dL (11.4-16.0); Lymphocytes # (A) 0.9 k/uL (1.0-4.8); Lymphocytes % (A) 21 %; MCH 31.5 pg (25.0-35.0); MCHC 33.2 g/dL (31.0-37.0); MCV 95.1 fL (80.0-100.0); Mean Platelet Volume 8.2; Monocytes # (A) 0.2 k/uL (0-1.0); Monocytes % (A) 4 %; Neutrophils # (A) 3.1 k/uL (1.3-7.7); Neutrophils % (A) 71 %; Platelet Count 235 k/uL (150-450); RBC 4.04 m/uL (3.80-5.40); RDW 14.1 % (11.5-15.5); WBC 4.4 k/uL (3.8-10.6)
[2021-07-02 14:02] LABS: ALT 15 U/L (4-34); AST 20 U/L (14-36); African American GFR (CKD) >90 (>60 ml/min/1.73 sqM); Albumin 3.5 g/dL (3.5-5.0); Alkaline Phosphatase 55 U/L (38-126); Amylase 32 U/L (30-110); Anion Gap 7 mmol/L; Blood Urea Nitrogen 3 mg/dL (7-17); Calcium 10.3 mg/dL (8.4-10.2); Carbon Dioxide 17 mmol/L (22-30); Chloride 110 mmol/L (98-107); Glucose 157 mg/dL (74-99); Lipase 484 U/L (23-300); Non-African American GFR(CKD) >90 (>60 ml/min/1.73 sqM); Sodium 134 mmol/L (137-145); Total Bilirubin 0.5 mg/dL (0.2-1.3); Total Protein 6.7 g/dL (6.3-8.2)
[2021-07-02] MEDS ORDERED: KETOROLAC 15 MG/ML 1 ML VIAL IM STA (15:10)
[2021-07-02] MEDS ORDERED: diphenhydrAMINE 50 MG/ML 1 ML VIAL IM STA (15:11)
[2021-07-02] MEDS ORDERED: METOCLOPRAMIDE 5 MG/ML 2 ML VIAL IM ONE (15:46)
[2021-07-02] MEDS ORDERED: DICYCLOMINE 10 MG/ML 2 ML AMP IM STA (15:49)
--- NOTE | 2021-07-02 16:11 | CT ---
EXAMINATION TYPE: CT brain wo con DATE OF EXAM: 07/02/2021 COMPARISON: CT dated 11/10/2020 HISTORY: syncope CT DLP: 1121.4 mGycm Automated exposure control for dose reduction was used. TECHNIQUE: CT scan of the brain is performed without IV contrast administration. FINDINGS: No acute intracranial hemorrhage. No gross acute cortical infarct. No midline shift, herniation or ve ntriculomegaly. Unremarkable roberts-white matter differentiation, basal cisterns, sella and CP angles. No gross space-o ccupying lesion, vasogenic edema or mass effect. Unremarkable orbits. Clear visualized paranasal sinuses and mastoid air cells. Unremarkable calvarial bones. IMPRESSION: No acute intracranial abnormality or gross space-occupying lesion by this nonenhanced CT scan.
[2021-07-02] MEDS ORDERED: HYDROmorphone 0.5 MG/0.5 ML SYRINGE IM STA ×2 (16:45→17:33)
[2021-07-02] MEDS ORDERED: METOCLOPRAMIDE 10 MG TAB PO STA (17:35)
[2021-07-02] MEDS ORDERED: LORazepam 2 MG/ML INJ IV PRN (19:33)
[2021-07-02] MEDS ORDERED: NALOXONE 0.4 MG/ML 1 ML VIAL IV PRN (19:33)
[2021-07-02] MEDS ORDERED: ACETAMINOPHEN TAB 325 MG TAB PO PRN (19:33)
[2021-07-02] MEDS: HYDROmorphone 0.5 MG/0.5 ML SYRINGE IVP PRN (20:18)
[2021-07-02] MEDS ORDERED: diphenhydrAMINE 50 MG/ML 1 ML VIAL IVP STA (20:36)
[2021-07-02] MEDS: HYDROmorphone 1 MG/ML 1 ML SYRINGE IVP PRN (23:37)
--- NOTE | 2021-07-03 00:28 | P.HPIM ---
History of Present Illness H&P Date: 07/02/21 Chief Complaint: Syncope, abdominal pain 30-year-old female with diabetes mellitus recurrent pancreatitis Patient comes in due to recurrent episodes of right upper quadrant pain and epigastric abdominal pain radiating to the back associated with nausea vomiting no GI bleeding or fevers no chills she admits to chronic recurrent pancreatitis she denies any alcohol abuse drug abuse she denies any smoking she denies any history of liver disease she reports that she doesn't know why she gets pancreatitis. However she describes that this is typical of her recurrent episodes. She also admits that she had 3 episodes of syncope today where she wake up on the floor unknown down time she is not sure if she hit her head she denies any associated palpitations or skipping beats but reports usually happens after changing position one of the episodes happened when she was walking to the bathroom she felt dizzy lightheaded and then she passed out another episode happened while walking with her who caught her. Patient denies having syncope she is however she recalls one remote episode. She denies any cardiac history or arrhythmias. In the ED she was found to have acute pancreatitis. CT of the brain was negative for any acute pathology. Review of Systems Pertinent positives as noted in HPI. All other systems were reviewed and are negative Past Medical History Past Medical History: Asthma, Diabetes Mellitus, GERD/Reflux Additional Past Medical History / Comment(s): migraines, degenerative disk disease, endometriosis, lupus, pancreatitis, DM2- diet controlled History of Any Multi-Drug Resistant Organisms: None Reported Past Surgical History: Orthopedic Surgery Additional Past Surgical History / Comment(s): laparoscopc surgery for endometriosis, cyst removed from left foot, EGD, Past Anesthesia/Blood Transfusion Reactions: Previous Problems w/ Anesthesia Additional Past Anesthesia/Blood Transfusion Reaction / Comment(s): hard to wake up for 48-72 hours after laparoscopic surgery-was in hosp. for 3 days Past Psychological History: Anxiety, Depression, PTSD Smoking Status: Never smoker Past Alcohol Use History: None Reported Past Drug Use History: Marijuana - Past Family History Mother Family Medical History: No Reported History Additional Family Medical History / Comment(s): hx migraines Father Family Medical History: Coronary Artery Disease (CAD), Hypertension Additional Family Medical History / Comment(s): ddd, alcoholism & drug use Medications and Allergies Home Medications Medication Instructions Recorded Confirmed Type Acetaminophen Tab [Tylenol] 650 mg PO Q6HR PRN tab 05/05/21 07/02/21 Rx Ascorbic Acid [Vitamin C] 1,000 mg PO DAILY #30 tab 05/05/21 07/02/21 Rx Atorvastatin Calcium [Lipitor] 40 mg PO DAILY 05/16/21 07/02/21 History ondansetron HCL [Zofran] 4 mg PO Q8H PRN 05/16/21 07/02/21 History Butalb/APAP/Caff 50-325-40Mg 1 tab PO Q4H PRN 07/02/21 07/02/21 History [Fioricet 50-325-40] Emtricitabine/Tenofovir (Tdf) 1 tab PO DAILY 07/02/21 07/02/21 History [Truvada 200 mg-300 mg Tablet] Escitalopram [Lexapro] 10 mg PO DAILY 07/02/21 07/02/21 History Fenofibrate [Lofibra] 160 mg PO DAILY 07/02/21 07/02/21 History Midodrine HCl 5 mg PO BID PRN 07/02/21 07/02/21 History Pantoprazole [Protonix] 40 mg PO DAILY 07/02/21 07/02/21 History Raltegravir Potassium [Isentress] 400 mg PO BID 07/02/21 07/02/21 History hydrOXYzine pamoate [hydrOXYzine 25 mg PO TID PRN 07/02/21 07/02/21 History PAMOATE] metFORMIN HCL 500 mg PO BID 07/02/21 07/02/21 History polyethylene glycoL 3350 [Miralax] 17 gm PO DAILY PRN 07/02/21 07/02/21 History traZODone HCL [Desyrel] 250 mg PO HS 07/02/21 07/02/21 History Allergies Allergy/AdvReac Type Severity Reaction Status Date / Time bee pollen Allergy Severe Anaphylaxis Verified 07/02/21 17:34 haloperidol [From Haldol] Allergy Severe QUIT Verified 07/02/21 17:34 BREATHING haloperidol lactate Allergy Severe QUIT Verified 07/02/21 17:34 [From Haldol] BREATHING latex Allergy Severe RASH-THROAT Verified 07/02/21 17:34 CLOSES [place] Allergy Anaphylaxis Verified 07/02/21 17:34 coconut Allergy Anaphylaxis Verified 07/02/21 17:34 pineapple Allergy Anaphylaxis Verified 07/02/21 17:34 prednisone Allergy THROAT Verified 07/02/21 17:34 SWELLS spider venom Allergy Swelling Verified 07/02/21 17:34 Sulfa (Sulfonamide Allergy THROAT Verified 07/02/21 17:34 Antibiotics) SWELLS venom-wasp Allergy Swelling Verified 07/02/21 17:34 venom-wasp protein Allergy Swelling Verified 07/02/21 17:34 promethazine HCl AdvReac Severe Nausea & Verified 07/02/21 17:34 [From Phenergan] Vomiting tramadol AdvReac Severe Nausea & Verified 07/02/21 17:34 Vomiting amoxicillin AdvReac Nausea & Verified 07/02/21 17:34 Vomiting ANTS AdvReac Mild Anaphylaxis Uncoded 04/08/21 23:14 Physical Exam Vitals: Vital Signs Temp Pulse Resp BP Pulse Ox 07/02/21 23:39 97 18 102/73 95 07/02/21 19:22 88 18 94/60 97 07/02/21 16:54 86 16 91/64 96 07/02/21 11:18 98.1 F 77 16 100/69 99 Intake and Output 07/02/21 07/02/21 07/03/21 14:59 22:59 06:59 Other: Weight 84.368 kg Constitutional: No acute distress, conversant, pleasant Eyes: Anicteric sclerae, moist conjunctiva, Pupils equal round reactive to light ENMT: NC/AT Oropharynx clear, no erythema, or exudates Neck: Supple, no masses, or JVD No carotid bruits No thyromegaly Lungs: Clear to auscultation Clear to percussion Normal respiratory effort, no accessory muscle use Cardiovascular: Heart regular in rate and rhythm, No murmurs, gallops, or rubs No peripheral edema Abdominal: Soft Tenderness to deep palpation over the epigastric and right upper quadrant region with voluntary guarding no rebound or rigidity Abdomen moving with respiration Normoactive bowel sounds No hepatomegaly, No splenomegaly No palpable mass No abdominal wall hernia noted Skin: Normal temperature, tone, texture, turgor No induration No subcutaneous nodules No rash, lesions No ulcers Extremities: No digital cyanosis No clubbing Pedal pulses intact and symmetrical Radial pulses intact and symmetrical No calf tenderness Psychiatric: Alert and oriented to person, place and time Appropriate affect fair judgement Neuro Muscles Strength 4/5 in all 4 extremities Sensation to light touch grossly present throughout Cranial nerves II-XII grossly intact No focal sensory deficits Lymphatics: no palpable cervical or supraclavicular , or inguinal lymph nodes Results CBC & Chem 7: 07/02/21 13:10 07/02/21 13:10 Labs: Abnormal Lab Results - Last 24 Hours (Table) 07/02/21 07/02/21 07/02/21 Range/Units 12:47 13:10 13:10 Lymphocytes # 0.9 L (1.0-4.8) k/uL Sodium 134 L (137-145) mmol/L Chloride 110 H (98-107) mmol/L Carbon Dioxide 17 L (22-30) mmol/L BUN 3 L (7-17) mg/dL Glucose 157 H (74-99) mg/dL Calcium 10.3 H (8.4-10.2) mg/dL Lipase 484 H (23-300) U/L Urine Appearance Cloudy H (Clear) Ur Leukocyte Esterase Large H (Negative) Urine WBC 49 H (0-5) /hpf Ur Squamous Epith Cells 14 H (0-4) /hpf Urine Bacteria Rare H (None) /hpf Urine Mucus Rare H (None) /hpf Microbiology - Last 24 Hours (Table) 07/02/21 12:47 Urine Culture - Preliminary Urine,Voided Assessment and Plan Assessment: Acute recurrent pancreatitis unknown underlying cause Liver enzymes unremarkable Denies alcohol abuse denies any drug abuse. Nothing by mouth Pain control with opiates Benadryl when necessary for itching IV fluid hydration aggressive with lactated Ringer PPI Syncopal episodes Check echocardiogram statistician Fall precautions Check orthostatic vital signs Diabetes mellitus Insulin sliding scale Heparin subcu 3 times a day for DVT prophylaxis Full code Anticipated length of stay more than 2 midnights
[2021-07-03] MEDS: diphenhydrAMINE 50 MG/ML 1 ML VIAL IVP PRN ×2 (00:37→08:02)
[2021-07-03] MEDS: traZODone HCL 100 MG TAB PO SCH ×2 (00:55→20:16)
[2021-07-03] MEDS: LACTATED RINGERS 1,000 ML IV SCH ×4 (01:00→19:47)
[2021-07-03] MEDS: HYDROmorphone 1 MG/ML 1 ML SYRINGE IVP PRN ×3 (02:48→09:27)
[2021-07-03 05:57] LABS: Glucose,Whole Blood 103 mg/dL (75-99)
[2021-07-03] MEDS ORDERED: INSULIN ASPART (NovoLOG) 100 UNIT/ML VIAL SQ SCH (06:00)
[2021-07-03] MEDS: HEPARIN SODIUM,PORCINE/PF 5,000 UNIT/0.5 ML SYRINGE SQ SCH ×3 (08:02→23:38)
[2021-07-03] MEDS: INSULIN ASPART (NovoLOG) 100 UNIT/ML VIAL SQ SCH ×4 (08:02→21:27)
[2021-07-03] MEDS: PANTOPRAZOLE 40 MG TABLET PO SCH (08:02)
[2021-07-03] MEDS: ESCITALOPRAM 10 MG TAB PO SCH (08:33)
[2021-07-03] MEDS ORDERED: PATIENTS OWN MED PO SCH (09:00)
[2021-07-03] MEDS ORDERED: RALTEGRAVIR POTASSIUM 400 MG TABLET PO SCH (09:00)
--- NOTE | 2021-07-03 10:09 | ECHOF ---
Referral Reason:syncope MEASUREMENTS -------- HEIGHT: 162.6 cm WEIGHT: 84.4 kg BP: RVIDd: 2.1 cm (< 3.3) IVSd: 1.0 cm (0.6 - 1.1) LVIDd: 3.4 cm (3.9 - 5.3) LVPWd: 1.2 cm (0.6 - 1.1) IVSs: 1.4 cm LVIDs: 2.0 cm LVPWs: 1.7 cm Ao Diam: 3.2 cm (2.0 - 3.7) AV Cusp: 1.9 cm (1.5 - 2.6) LA Diam: 2.6 cm (2.7 - 3.8) MV EXCURSION: 13.362 mm (> 18.000) MV EF SLOPE: 114 mm/s (70 - 150) EPSS: 0.8 cm MV E Jose L: 0.86 m/s MV DecT: 192 ms MV A Jose L: 0.47 m/s MV E/A Ratio: 1.83 RAP: 5.00 mmHg RVSP: 28.61 mmHg FINDINGS -------- This was a technically good study. The left ventricular size is normal. Left ventricular wall thickness is normal. Overall left vent ricular systolic function is normal with, an EF between 55 - 60 %. The right ventricle is normal in size. The left atrial size is normal. The right atrial size is normal. The aortic valve is trileaflet and appears structurally normal. The mitral valve is normal. There is trace mitral regurgitation. The tricuspid valve appears structurally normal. Trace tricuspid regurgitation present. Right oseas tricular systolic pressure is normal at < 35 mmHg. There is no pulmonic regurgitation present. The aortic root size is normal. IVC Not well visulized. There is no pericardial effusion. CONCLUSIONS -------- 1. The left ventricular size is normal. 2. Left ventricular wall thickness is normal. 3. Overall left ventricular systolic function is normal with, an EF between 55 - 60 %. 4. There is trace mitral regurgitation. 5. Trace tricuspid regurgitation present. 6. There is no pericardial effusion. [employer] SUPPORT: María Elena Cole [facility]
[2021-07-03 12:03] LABS: Glucose,Whole Blood 132 mg/dL (75-99)
[2021-07-03] MEDS: HYDROmorphone 0.5 MG/0.5 ML SYRINGE IVP PRN ×4 (13:08→23:37)
[2021-07-03 17:20] LABS: Glucose,Whole Blood 174 mg/dL (75-99)
[2021-07-03] MEDS: diphenhydrAMINE 25 MG CAP PO PRN (17:50)
[2021-07-03 20:10] LABS: Glucose,Whole Blood 112 mg/dL (75-99)
[2021-07-03] MEDS: ONDANSETRON 4 MG/2 ML VIAL IVP PRN (20:19)
[2021-07-03] MEDS ORDERED: hydrOXYzine pamoate 25 MG CAP PO PRN (20:51)
--- NOTE | 2021-07-03 21:06 | P.PN ---
Subjective Progress Note Date: 07/03/21 (delayed charting seen at 1430) Principal diagnosis: abdominal pain Patient's 30-year-old female with a history of pancreatitis, diabetes mellitus, migraine, and GERD who presented to the ER with complaints of abdominal pain and syncope. In the ER she was found to have an elevated lipase. CT of the brain showed no acute process. Patient was admitted and started on IV fluids, made nothing by mouth. Patient seen and examined at bedside. She appears to be in pain. She is grabbing the right side of her stomach. She has been eating and drinking copious amounts throughout the day per nursing. She is asking why this keeps happening since July. General: Ill appearing, mild distress secondary to pain, appears at stated age Derm: warm, dry Head: atraumatic, normocephalic, symmetric Eyes: EOMI, no lid lag, anicteric sclera Mouth: no lip lesion, mucus membranes moist Cardiovascular: S1S2 reg, no murmur, positive posterior tibial pulse bilateral, Lungs: CTA bilateral, no rhonchi, no rales , no accessory muscle use Abdominal: soft, tender to palpation right upper quadrant, no guarding, no appreciable organomegaly Ext: no gross muscle atrophy, no edema, no contractures Neuro: CN II-XI grossly intact, no focal neuro deficits Psych: Alert, oriented, appears anxious and distraught Assessment/plan: Acute pancreatitis in a patient receiving ART HIV/AIDS - hold raltegravir and conitnue truvada - IVF - CLear liquis - pain control - antemetics Syncope - tele and echo normal - orthostatics negative DM 2 - metformin on hold - SSI HLD - statin , fenofibrate Anticipate home in a.m. Objective - Vital Signs Vital signs: Vital Signs Temp 98.2 F 07/03/21 19:54 Pulse 97 07/03/21 19:54 Resp 16 07/03/21 19:54 BP 97/67 07/03/21 19:54 Pulse Ox 97 07/03/21 19:54 Intake & Output 07/03/21 07/03/21 07/04/21 06:59 18:59 06:59 Intake Total 590 Balance 590 Weight 84.368 kg Intake: Oral 590 Other: Voiding Method Toilet Bedside Commode # Voids 5 2 - Labs CBC & Chem 7: 07/02/21 13:10 07/02/21 13:10 Labs: Abnormal Lab Results - Last 24 Hours (Table) 07/03/21 07/03/21 07/03/21 Range/Units 05:56 12:00 17:06 POC Glucose (mg/dL) 103 H 132 H 174 H (75-99) mg/dL 07/03/21 Range/Units 20:08 POC Glucose (mg/dL) 112 H (75-99) mg/dL Microbiology - Last 24 Hours (Table) 07/02/21 12:47 Urine Culture - Preliminary Urine,Voided
[2021-07-04] MEDS: HYDROmorphone 0.5 MG/0.5 ML SYRINGE IVP PRN ×5 (02:28→15:05)
[2021-07-04] MEDS: LACTATED RINGERS 1,000 ML IV SCH ×4 (02:28→21:20)
[2021-07-04] MEDS: ONDANSETRON 4 MG/2 ML VIAL IVP PRN ×2 (05:36→18:04)
[2021-07-04 07:14] LABS: ALT 17 U/L (4-34); AST 33 U/L (14-36); African American GFR (CKD) >90 (>60 ml/min/1.73 sqM); Albumin 2.8 g/dL (3.5-5.0); Alkaline Phosphatase 46 U/L (38-126); Anion Gap 5 mmol/L; Blood Urea Nitrogen 4 mg/dL (7-17); Calcium 9.3 mg/dL (8.4-10.2); Carbon Dioxide 19 mmol/L (22-30); Chloride 113 mmol/L (98-107); Globulin 2.9 g/dL; Glucose 107 mg/dL (74-99); Lipase 387 U/L (23-300); Non-African American GFR(CKD) >90 (>60 ml/min/1.73 sqM); Potassium 4.2 mmol/L (3.5-5.1); Sodium 137 mmol/L (137-145); Total Bilirubin 0.5 mg/dL (0.2-1.3); Total Protein 5.7 g/dL (6.3-8.2)
[2021-07-04 07:28] LABS: HCT 33.4 % (34.0-46.0); HGB 11.5 gm/dL (11.4-16.0); MCH 32.9 pg (25.0-35.0); MCHC 34.3 g/dL (31.0-37.0); MCV 95.9 fL (80.0-100.0); Mean Platelet Volume 9.7; Platelet Count 192 k/uL (150-450); RBC 3.48 m/uL (3.80-5.40); RDW 14.8 % (11.5-15.5); WBC 3.8 k/uL (3.8-10.6)
[2021-07-04 07:29] LABS: Glucose,Whole Blood 99 mg/dL (75-99)
[2021-07-04] MEDS: INSULIN ASPART (NovoLOG) 100 UNIT/ML VIAL SQ SCH ×4 (07:47→22:07)
[2021-07-04] MEDS: EMTRICITABINE PO SCH (07:48)
[2021-07-04] MEDS: TENOFOVIR PO SCH (07:48)
[2021-07-04] MEDS: ESCITALOPRAM 10 MG TAB PO SCH (07:48)
[2021-07-04] MEDS: ATORVASTATIN 40 MG TAB PO SCH (07:48)
[2021-07-04] MEDS: FENOFIBRATE 160 MG TAB PO SCH (07:48)
[2021-07-04] MEDS: HEPARIN SODIUM,PORCINE/PF 5,000 UNIT/0.5 ML SYRINGE SQ SCH ×2 (07:48→15:05)
[2021-07-04] MEDS: PANTOPRAZOLE 40 MG TABLET PO SCH (07:48)
[2021-07-04 11:46] LABS: Glucose,Whole Blood 113 mg/dL (75-99)
[2021-07-04 17:23] LABS: Glucose,Whole Blood 105 mg/dL (75-99)
[2021-07-04] MEDS: HYDROmorphone 1 MG/ML 1 ML SYRINGE IVP PRN ×2 (18:02→21:15)
[2021-07-04 20:12] LABS: Glucose,Whole Blood 115 mg/dL (75-99)
[2021-07-04] MEDS: traZODone HCL 100 MG TAB PO SCH (21:16)
--- NOTE | 2021-07-04 21:44 | P.PN ---
Subjective Progress Note Date: 07/04/21 (delayed charting seen at 1505) Principal diagnosis: abdominal pain Patient's 30-year-old female with a history of pancreatitis, diabetes mellitus, migraine, and GERD who presented to the ER with complaints of abdominal pain and syncope. In the ER she was found to have an elevated lipase. CT of the brain showed no acute process. Patient was admitted and started on IV fluids, made nothing by mouth. Patient seen and examined at bedside. Asking for increased dilaudid dosing, still with pain, nasuea, has been tolerating clear liquid diet. We discussed that if still in pain should not be eating and will need to see decreased use of pain meds before increasing diet. She is on Truvada for post exposure prophylaxis per patient but denies HIV. we discussed that I do not want to increase her Dilaudid significantly as it can be highly addictive. She has a referral for EUS in [place] and I suggest she keep that appointment, family hx of pancreatic cancer General: Ill appearing, no distress , appears at stated age Derm: warm, dry Head: atraumatic, normocephalic, symmetric Eyes: EOMI, no lid lag, anicteric sclera Mouth: no lip lesion, mucus membranes moist Cardiovascular: S1S2 reg, no murmur, positive posterior tibial pulse bilateral, Lungs:course bs bilateral bases , no accessory muscle use Abdominal: soft, tender to palpation right upper quadrant, no guarding, no appreciable organomegaly Ext: no gross muscle atrophy, no edema, no contractures Neuro: CN II-XI grossly intact, no focal neuro deficits Psych: Alert, oriented, appears anxious and distraught Assessment/plan: Acute pancreatitis in a patient receiving ART Post esposure HIV prophylaxis Family Hx of pancreatic cancer - hold raltegravir and conitnue truvada - IVF - Clear liquids- advance once pain is better controlled - pain control-- dilaudid increased to 0.6 mg - antemetics -put patient follow-up for EUS Syncope - tele and echo normal - orthostatics negative DM 2 - metformin on hold - SSI HLD - statin , fenofibrate home once tolerating orals Objective - Vital Signs Vital signs: Vital Signs Temp 98.2 F 07/04/21 19:59 Pulse 68 07/04/21 19:59 Resp 16 07/04/21 19:59 BP 97/65 07/04/21 19:59 Pulse Ox 97 07/04/21 19:59 Intake & Output 07/04/21 07/04/21 07/05/21 06:59 18:59 06:59 Intake Total 2100 Output Total 900 Balance 1200 Intake: Intake, IV Titration 1500 Amount Lactated Ringers 1,000 ml 1500 @ 150 mls/hr IV .[id number] [facility] Rx#:[id number] Oral 600 Output: Urine 900 Other: Voiding Method Bedside Commode Bedside Commode # Voids 1 4 # Bowel Movements 1 - Labs CBC & Chem 7: 07/04/21 06:17 07/04/21 06:17 Labs: Abnormal Lab Results - Last 24 Hours (Table) 07/04/21 07/04/21 07/04/21 Range/Units 06:17 06:17 11:44 RBC 3.48 L (3.80-5.40) m/uL Hct 33.4 L (34.0-46.0) % Chloride 113 H (98-107) mmol/L Carbon Dioxide 19 L (22-30) mmol/L BUN 4 L (7-17) mg/dL Glucose 107 H (74-99) mg/dL POC Glucose (mg/dL) 113 H (75-99) mg/dL Total Protein 5.7 L (6.3-8.2) g/dL Albumin 2.8 L (3.5-5.0) g/dL Lipase 387 H (23-300) U/L 07/04/21 07/04/21 Range/Units 17:22 20:10 RBC (3.80-5.40) m/uL Hct (34.0-46.0) % Chloride (98-107) mmol/L Carbon Dioxide (22-30) mmol/L BUN (7-17) mg/dL Glucose (74-99) mg/dL POC Glucose (mg/dL) 105 H 115 H (75-99) mg/dL Total Protein (6.3-8.2) g/dL Albumin (3.5-5.0) g/dL Lipase (23-300) U/L Microbiology - Last 24 Hours (Table) 07/02/21 12:47 Urine Culture - Preliminary Urine,Voided Group D Enterococcus
[2021-07-04] MEDS ORDERED: HYDROcodone/APAP 5-325MG 1 EACH TAB PO PRN (22:21)
[2021-07-05] MEDS: diphenhydrAMINE 25 MG CAP PO PRN (00:09)
[2021-07-05] MEDS: HEPARIN SODIUM,PORCINE/PF 5,000 UNIT/0.5 ML SYRINGE SQ SCH ×2 (01:45→08:01)
[2021-07-05] MEDS ORDERED: MORPHINE SULFATE 2 MG/ML SYRINGE IVP STA (02:00)
[2021-07-05 07:16] LABS: Glucose,Whole Blood 125 mg/dL (75-99)
[2021-07-05] MEDS: INSULIN ASPART (NovoLOG) 100 UNIT/ML VIAL SQ SCH (07:33)
[2021-07-05 07:38] VITALS: BP 115/79; PULSE 96; RESP 15; TEMP 98.1
[2021-07-05] MEDS: ESCITALOPRAM 10 MG TAB PO SCH (08:00)
[2021-07-05] MEDS: PANTOPRAZOLE 40 MG TABLET PO SCH (08:00)
[2021-07-05] MEDS: ATORVASTATIN 40 MG TAB PO SCH (08:01)
[2021-07-05] MEDS: FENOFIBRATE 160 MG TAB PO SCH (08:01)
[2021-07-05] MEDS: TENOFOVIR PO SCH ×2 (08:07)
[2021-07-05] MEDS: EMTRICITABINE PO SCH ×2 (08:07)
--- NOTE | 2021-07-05 19:09 | P.DS ---
Providers Date of admission: 07/03/21 07:50 Expected date of discharge: 07/05/21 Attending physician: Omid Smiley MD Primary care physician: Stated None Hospital Course: Discharge Diagnosis: Acute pancreatitis in a patient receiving ART Post esposure HIV prophylaxis Family Hx of pancreatic cancer Syncope DM 2 HLD Hospital Course: Patient's 30-year-old female with a history of pancreatitis, diabetes mellitus, migraine, and GERD who presented to the ER with complaints of abdominal pain and syncope. In the ER she was found to have an elevated lipase. CT of the brain showed no acute process. Patient was admitted and started on IV fluids, made nothing by mouth. She underwent an echocardiogram which demonstrated a preserved ejection fraction and no significant abnormalities. Orthostatics were negative. Telemetry unrevealing. Patient slowly improved. She has been taking antiretroviral therapy for post exposure prophylaxis. She also reports that her mom has a history of pancreatic cancer. She is already been following with GI in [place] and is due to have an outpatient endoscopic ultrasound. Despite a conversation that I would not increase her diet and her pain medications at the same time I mildly increased her Dilaudid and the patient had her brother bring her intact all. Per nursing she tolerated this well. Therefore was determined she was stable for discharge home from her pancreatitis. Follow-up: Dr. Mayes and with GI for EUS. Patient seen and examined at bedside. Leaves her head covered in bed ad moans but does not speak. Vital signs reviewed and stable. General: non toxic, no distress, appears at stated age Derm: warm, dry Cardiovascular: S1S2 reg, no murmur, positive posterior tibial pulse bilateral, Lungs: CTA bilateral, no rhonchi, no rales , no accessory muscle use Abdominal: soft, nontender to palpation, no guarding, no appreciable organomegaly Ext: no gross muscle atrophy, no edema, no contractures Neuro: CN II-XI grossly intact, no focal neuro deficits Psych: Alert, oriented, appropriate affect A total of 32 minutes of time were spent preparing this complex discharge summary . Plan - Discharge Summary Discharge Rx Participant: Yes New Discharge Prescriptions: Continue Ascorbic Acid [Vitamin C] 1,000 mg PO DAILY #30 tab ondansetron HCL [Zofran] 4 mg PO Q8H PRN PRN Reason: Nausea And Vomiting metFORMIN HCL 500 mg PO BID Fenofibrate [Lofibra] 160 mg PO DAILY Emtricitabine/Tenofovir (Tdf) [Truvada 200 mg-300 mg Tablet] 1 tab PO DAILY Escitalopram [Lexapro] 10 mg PO DAILY Butalb/APAP/Caff 50-325-40Mg [Fioricet 50-325-40] 1 tab PO Q4H PRN PRN Reason: Migraine Headache Acetaminophen Tab [Tylenol] 650 mg PO Q6HR PRN tab PRN Reason: Mild Pain Or Fever > 100.5 Atorvastatin Calcium [Lipitor] 40 mg PO DAILY traZODone HCL [Desyrel] 250 mg PO HS polyethylene glycoL 3350 [Miralax] 17 gm PO DAILY PRN PRN Reason: Constipation Pantoprazole [Protonix] 40 mg PO DAILY Midodrine HCl 5 mg PO BID PRN PRN Reason: LOW BLOOD PRESSURE hydrOXYzine pamoate [hydrOXYzine PAMOATE] 25 mg PO TID PRN PRN Reason: Anxiety Raltegravir Potassium [Isentress] 400 mg PO BID Discharge Medication List Acetaminophen Tab [Tylenol] 650 mg PO Q6HR PRN tab 05/05/21 [Rx] Ascorbic Acid [Vitamin C] 1,000 mg PO DAILY #30 tab 05/05/21 [Rx] Atorvastatin Calcium [Lipitor] 40 mg PO DAILY 05/16/21 [History] ondansetron HCL [Zofran] 4 mg PO Q8H PRN 05/16/21 [History] Butalb/APAP/Caff 50-325-40Mg [Fioricet 50-325-40] 1 tab PO Q4H PRN 07/02/21 [History] Emtricitabine/Tenofovir (Tdf) [Truvada 200 mg-300 mg Tablet] 1 tab PO DAILY 07/02/21 [History] Escitalopram [Lexapro] 10 mg PO DAILY 07/02/21 [History] Fenofibrate [Lofibra] 160 mg PO DAILY 07/02/21 [History] Midodrine HCl 5 mg PO BID PRN 07/02/21 [History] Pantoprazole [Protonix] 40 mg PO DAILY 07/02/21 [History] Raltegravir Potassium [Isentress] 400 mg PO BID 07/02/21 [History] hydrOXYzine pamoate [hydrOXYzine PAMOATE] 25 mg PO TID PRN 07/02/21 [History] metFORMIN HCL 500 mg PO BID 07/02/21 [History] polyethylene glycoL 3350 [Miralax] 17 gm PO DAILY PRN 07/02/21 [History] traZODone HCL [Desyrel] 250 mg PO HS 07/02/21 [History] Follow up Appointment(s)/Referral(s): Jorje Mayes MD [REFERRING] - 1 Week [facility] [NON-STAFF] - 1 Week Patient Instructions/Handouts: Pancreatitis (DC), Regular Diet (DC), Acute Abdominal Pain (DC) Activity/Diet/Wound Care/Special Instructions: Activity: as tolerated Diet: regular Special Instructions: Keep your appointment for your endoscopic ultrasound in [place] Discharge Disposition: HOME SELF-CARE
== END 2021-07-05 10:30 | disposition home or self-care (01) ==
LOC: EC 11:17 → 6NMEDSUR 20:51 → 5NMEDONC 07-03 02:26 → INTOOBSV 07-03 07:50 → OBSVTOIN 07-03 07:50 → UNDODISIN 07-05 10:30
PROVIDERS: ADMIT Internal Medicine; ATTEND Internal Medicine
DX: K85.90 Acute pancreatitis without necrosis or infection, unspecified (principal); E11.9 Type 2 diabetes mellitus without complications; E78.5 Hyperlipidemia, unspecified; F32.A Depression, unspecified; F41.9 Anxiety disorder, unspecified; F43.10 Post-traumatic stress disorder, unspecified; K21.9 Gastro-esophageal reflux disease without esophagitis; G43.909 Migraine, unspecified, not intractable, without status migrainosus; R55 Syncope and collapse; K86.1 Other chronic pancreatitis; J45.909 Unspecified asthma, uncomplicated; Z71.9 Counseling, unspecified; Z20.6 Contact with and (suspected) exposure to human immunodeficiency virus [HIV]; Z79.899 Other long term (current) drug therapy; Z79.84 Long term (current) use of oral hypoglycemic drugs; Z88.1 Allergy status to other antibiotic agents; Z91.030 Bee allergy status; Z91.040 Latex allergy status; Z88.5 Allergy status to narcotic agent; Z88.2 Allergy status to sulfonamides; Z88.8 Allergy status to other drugs, medicaments and biological substances; Z91.018 Allergy to other foods; Z91.09 Other allergy status, other than to drugs and biological substances; Z91.038 Other insect allergy status; Z80.0 Family history of malignant neoplasm of digestive organs; Z80.8 Family history of malignant neoplasm of other organs or systems; Z82.49 Family history of ischemic heart disease and other diseases of the circulatory system; Z81.1 Family history of alcohol abuse and dependence; Z82.0 Family history of epilepsy and other diseases of the nervous system; Z82.69 Family history of other diseases of the musculoskeletal system and connective tissue
CPT/HCPCS: 96376 ×4; 96361 ×5; 96372 ×4; 96375 ×4; 96374; 99285; 36415; 93306; 80053 ×2; 82150; 83605; 83690 ×2; 85025; 85027; 81001; 81025; 87086; 87077; 87186; 70450; G0378 ×5; J2060; J1200 ×2; J0500; J2765; J2405 ×2; J2270; J1170 ×6; J1885; J1644 ×3

== ENCOUNTER 2021-07-10 18:04 | Emergency (ER) | payer OTHER ==
[2021-07-10 18:21] VITALS: RESP 18; TEMP 98
[2021-07-10] MEDS ORDERED: ONDANSETRON 4 MG/2 ML VIAL IVP STA (19:30)
[2021-07-10] MEDS ORDERED: HYDROmorphone 1 MG/ML 1 ML SYRINGE IVP STA (19:30)
[2021-07-10] MEDS ORDERED: SODIUM CHLORIDE 0.9% 1,000 ML IV STA (19:30)
--- NOTE | 2021-07-10 19:44 | ED ---
Abdominal Pain HPI - General Chief Complaint: Abdominal Pain Stated Complaint: Post-op complication Time Seen by Provider: 07/10/21 19:20 Source: patient, RN notes reviewed Mode of arrival: wheelchair Limitations: no limitations - History of Present Illness Initial Comments: This is a 30-year-old female with a history of multiple medical issues to include diabetes mellitus, systemic lupus erythematosus asthma, and acid reflux. She presents to the emergency department today stating that she has pain overlying one of her incisions from her laparoscopic cholecystectomy she had 2 days ago at [facility]. Patient states she was sent home with no pain medications. Patient has been taking acetaminophen and ibuprofen. Patient also complaining of some lightheadedness. Patient states she's been eating and drinking. Patient states that she has been having bowel movements and urinating okay. the patient was here a few days prior to the surgery and had a computed tomography scan done and workup for syncopal episode. I did look back in the chart and it appears the patient had a urinary tract infection at that time with enterococcus species. Patient states she is not on an antibiotic. No headache, no fever or chills, no changes in vision or hearing, no sore throat or difficulty with speech, no neck pain, no chest pain or shortness of breath, no nausea or vomiting, no changes in urination or bowel movements, no numbness or tingling, no extremity pain, no skin rashes or lesions. - Related Data Home Medications Medication Instructions Recorded Confirmed Atorvastatin Calcium [Lipitor] 40 mg PO DAILY 05/16/21 07/02/21 ondansetron HCL [Zofran] 4 mg PO Q8H PRN 05/16/21 07/02/21 Butalb/APAP/Caff 50-325-40Mg 1 tab PO Q4H PRN 07/02/21 07/02/21 [Fioricet 50-325-40] Emtricitabine/Tenofovir (Tdf) 1 tab PO DAILY 07/02/21 07/02/21 [Truvada 200 mg-300 mg Tablet] Escitalopram [Lexapro] 10 mg PO DAILY 07/02/21 07/02/21 Fenofibrate [Lofibra] 160 mg PO DAILY 07/02/21 07/02/21 Midodrine HCl 5 mg PO BID PRN 07/02/21 07/02/21 Pantoprazole [Protonix] 40 mg PO DAILY 07/02/21 07/02/21 Raltegravir Potassium [Isentress] 400 mg PO BID 07/02/21 07/02/21 hydrOXYzine pamoate [hydrOXYzine 25 mg PO TID PRN 07/02/21 07/02/21 PAMOATE] metFORMIN HCL 500 mg PO BID 07/02/21 07/02/21 polyethylene glycoL 3350 [Miralax] 17 gm PO DAILY PRN 07/02/21 07/02/21 traZODone HCL [Desyrel] 250 mg PO HS 07/02/21 07/02/21 Previous Rx's Medication Instructions Recorded Acetaminophen Tab [Tylenol] 650 mg PO Q6HR PRN tab 05/05/21 Ascorbic Acid [Vitamin C] 1,000 mg PO DAILY #30 tab 05/05/21 Cefdinir [Omnicef] 300 mg PO BID #14 capsule 07/10/21 Docusate [Colace] 100 mg PO BID #20 capsule 07/10/21 HYDROcodone/APAP 5-325MG [[place] 1 tab PO Q6HR PRN 3 Days #12 tab 07/10/21 5-325] Allergies Allergy/AdvReac Type Severity Reaction Status Date / Time bee pollen Allergy Severe Anaphylaxis Verified 07/10/21 18:19 haloperidol [From Haldol] Allergy Severe QUIT Verified 07/10/21 18:19 BREATHING haloperidol lactate Allergy Severe QUIT Verified 07/10/21 18:19 [From Haldol] BREATHING latex Allergy Severe RASH-THROAT Verified 07/10/21 18:19 CLOSES [place] Allergy Anaphylaxis Verified 07/10/21 18:19 coconut Allergy Anaphylaxis Verified 07/10/21 18:19 pineapple Allergy Anaphylaxis Verified 07/10/21 18:19 prednisone Allergy THROAT Verified 07/10/21 18:19 SWELLS spider venom Allergy Swelling Verified 07/10/21 18:19 Sulfa (Sulfonamide Allergy THROAT Verified 07/10/21 18:19 Antibiotics) SWELLS venom-wasp Allergy Swelling Verified 07/10/21 18:19 venom-wasp protein Allergy Swelling Verified 07/10/21 18:19 promethazine HCl AdvReac Severe Nausea & Verified 07/10/21 18:19 [From Phenergan] Vomiting tramadol AdvReac Severe Nausea & Verified 07/10/21 18:19 Vomiting amoxicillin AdvReac Nausea & Verified 07/10/21 18:19 Vomiting ANTS AdvReac Mild Anaphylaxis Uncoded 07/10/21 18:19 Review of Systems ROS Statement: Those systems with pertinent positive or pertinent negative responses have been documented in the HPI. ROS Other: All systems not noted in ROS Statement are negative. Past Medical History Past Medical History: Asthma, Diabetes Mellitus, GERD/Reflux Additional Past Medical History / Comment(s): migraines, degenerative disk disease, endometriosis, lupus, pancreatitis, DM2- diet controlled History of Any Multi-Drug Resistant Organisms: None Reported Past Surgical History: Orthopedic Surgery Additional Past Surgical History / Comment(s): laparoscopc surgery for endometri osis, cyst removed from left foot, EGD, Past Anesthesia/Blood Transfusion Reactions: Previous Problems w/ Anesthesia Additional Past Anesthesia/Blood Transfusion Reaction / Comment(s): hard to wake up for 48-72 hours after laparoscopic surgery-was in hosp. for 3 days Past Psychological History: Anxiety, Depression, PTSD Smoking Status: Never smoker Past Alcohol Use History: None Reported Past Drug Use History: Marijuana - Past Family History Mother Family Medical History: No Reported History Additional Family Medical History / Comment(s): hx migraines Father Family Medical History: Coronary Artery Disease (CAD), Hypertension Additional Family Medical History / Comment(s): ddd, alcoholism & drug use General Exam - General Exam Comments Initial Comments: 30-year-old female in moderate distress. Secondary to abdominal wall pain. However, patient does not appear to be ill or toxic. Vital signs reviewed. Capillary refill less than 2 seconds. Limitations: no limitations General appearance: alert, in distress Head exam: Present: atraumatic, normocephalic, normal inspection Eye exam: Present: normal appearance, PERRL, EOMI. Absent: scleral icterus, conjunctival injection, periorbital swelling ENT exam: Present: normal exam, mucous membranes moist, TM's normal bilaterally, normal external ear exam Neck exam: Present: normal inspection, full ROM. Absent: tenderness, meningismu s, lymphadenopathy Respiratory exam: Present: normal lung sounds bilaterally. Absent: respiratory distress, wheezes, rales, rhonchi, stridor Cardiovascular Exam: Present: regular rate, normal rhythm, normal heart sounds. Absent: systolic murmur, diastolic murmur, rubs, gallop, clicks GI/Abdominal exam: Present: soft, tenderness (Patient has tenderness overlying the laparoscopic surgical incisions which appear to be healing well. No evidence of secondary infection or dehiscence. No discharge or bleeding. Patient mainly tender over the incision near the epigastrium. No voluntary guarding. No rebound or percussion tendern), guarding, normal bowel sounds. Absent: distended, rebound, rigid Extremities exam: Present: normal inspection, full ROM, normal capillary refill. Absent: tenderness, pedal edema, joint swelling, calf tenderness Back exam: Present: normal inspection Neurological exam: Present: alert, oriented X3, CN II-XII intact Psychiatric exam: Present: normal affect, normal mood Skin exam: Present: warm, dry, intact, normal color. Absent: rash Course Vital Signs 07/10/21 07/10/21 18:20 20:30 Temperature 98 F Pulse Rate 100 94 Respiratory 18 18 Rate Blood Pressure 101/56 108/58 O2 Sat by Pulse 98 98 Oximetry - Reevaluation(s) Reevaluation #1: 07/10/21 22:20 Medical record is reviewed Hemodynamically stable Patient is informed of results and questions answered Patient in no distress Medical Decision Making - Medical Decision Making Postsurgical abdominal pain, we'll order a computed tomography scan of the pelvis. We'll repeat urinalysis is appears patient had a UTI at the previous admission here at this facility. Computed tomography scan shows postsurgical changes but no evidence of concerning fluid collection. Patient has minimal elevation of her lipase which likely is not concerning. I'm going to have the patient follow-up with her surgeon tomorrow morning. She is to call without fail. Patient voiced understanding of this. I'm going to give a short course of [place] as the patient is postsurgical. Use concomitant Colace. The case was discussed in detail with ED attending physician. Presentation, findings, treatment plan discussed in detail. Patient was told to return to the ER for any signs or symptoms worsen. Told to return immediately if any other problems arise. All questions answered. Treat ment plan discussed. Patient in agreement Every effort has been made to ensure accuracy of this dictation. However, due to the limitations of electronic medical records and dictation devices, errors in charting still occur. We'll treat the patient's urinary tract infection which was not treated as of yet. - Lab Data Result diagrams: 07/10/21 20:25 07/10/21 20:25 Lab Results 07/10/21 07/10/21 Range/Units 20:25 20:25 WBC 5.1 (3.8-10.6) k/uL RBC 3.85 (3.80-5.40) m/uL Hgb 12.6 (11.4-16.0) gm/dL Hct 38.8 (34.0-46.0) % MCV 100.8 H (80.0-100.0) fL MCH 32.7 (25.0-35.0) pg MCHC 32.5 (31.0-37.0) g/dL RDW 14.8 (11.5-15.5) % Plt Count 220 (150-450) k/uL MPV 8.0 Neutrophils % 55 % Lymphocytes % 36 % Monocytes % 6 % Eosinophils % 2 % Basophils % 1 % Neutrophils # 2.8 (1.3-7.7) k/uL Lymphocytes # 1.8 (1.0-4.8) k/uL Monocytes # 0.3 (0-1.0) k/uL Eosinophils # 0.1 (0-0.7) k/uL Basophils # 0.0 (0-0.2) k/uL Macrocytosis Slight Sodium 135 L (137-145) mmol/L Potassium 3.9 (3.5-5.1) mmol/L Chloride 106 (98-107) mmol/L Carbon Dioxide 19 L (22-30) mmol/L Anion Gap 10 mmol/L BUN 5 L (7-17) mg/dL Creatinine 0.64 (0.52-1.04) mg/dL Est GFR (CKD-EPI)AfAm >90 (>60 ml/min/1.73 sqM) Est GFR (CKD-EPI)NonAf >90 (>60 ml/min/1.73 sqM) Glucose 126 H (74-99) mg/dL Calcium 9.8 (8.4-10.2) mg/dL Total Bilirubin 0.6 (0.2-1.3) mg/dL AST 39 H (14-36) U/L ALT 24 (4-34) U/L Alkaline Phosphatase 46 (38-126) U/L Total Protein 6.4 (6.3-8.2) g/dL Albumin 3.5 (3.5-5.0) g/dL Lipase 387 H (23-300) U/L - Radiology Data Radiology results: report reviewed, image reviewed Disposition Clinical Impression: Abdominal pain, Urinary tract infection Disposition: HOME SELF-CARE Condition: Stable Instructions (If sedation given, give patient instructions): Abdominal Pain (ED), Urinary Tract Infection in Women (ED) Additional Instructions: Follow-up with your regular physician as directed. Return to the ER immediately if any symptoms worsen, new symptoms arise, or any other problems develop. Call your treating surgeon tomorrow morning without fail. Liquid diet for the next 12 hours. Take the antibiotics as directed. Only take the narcotic pain medication as directed. Take the Colace as well to avoid constipation. Drink plenty of fluids. Prescriptions: Docusate [Colace] 100 mg PO BID #20 capsule HYDROcodone/APAP 5-325MG [[place] 5-325] 1 tab PO Q6HR PRN 3 Days #12 tab PRN Reason: Pain Cefdinir [Omnicef] 300 mg PO BID #14 capsule Is patient prescribed a controlled substance at d/c from ED?: Yes When asked, does pt state using other controlled substances?: No If prescribed controlled substance>3 days was MAPS reviewed?: Prescribed <3 Days If opioid is for acute pain is fill amount 7 days or less?: Yes If Rx opioid, was Start Talking consent form obtained?: Yes Referrals: Isi Carolina MD [STAFF PHYSICIAN] - 07/14/21 Time of Disposition: 22:22
[2021-07-10] MEDS ORDERED: HYDROmorphone 1 MG/ML 1 ML SYRINGE IM STA (20:08)
[2021-07-10] MEDS ORDERED: ONDANSETRON ODT 4 MG TAB PO STA (20:08)
[2021-07-10] MEDS ORDERED: CEFDINIR 300 MG CAP PO STA (20:10)
[2021-07-10 20:40] LABS: Basophils % (A) 1 %; Eosinophils # (A) 0.1 k/uL (0-0.7); Eosinophils % (A) 2 %; HCT 38.8 % (34.0-46.0); HGB 12.6 gm/dL (11.4-16.0); Lymphocytes # (A) 1.8 k/uL (1.0-4.8); Lymphocytes % (A) 36 %; MCH 32.7 pg (25.0-35.0); MCHC 32.5 g/dL (31.0-37.0); MCV 100.8 fL (80.0-100.0); Macrocytosis Slight; Monocytes # (A) 0.3 k/uL (0-1.0); Monocytes % (A) 6 %; Neutrophils # (A) 2.8 k/uL (1.3-7.7); Neutrophils % (A) 55 %; Platelet Count 220 k/uL (150-450); RBC 3.85 m/uL (3.80-5.40); RDW 14.8 % (11.5-15.5); WBC 5.1 k/uL (3.8-10.6)
[2021-07-10 20:56] LABS: ALT 24 U/L (4-34); African American GFR (CKD) >90 (>60 ml/min/1.73 sqM); Albumin 3.5 g/dL (3.5-5.0); Anion Gap 10 mmol/L; Blood Urea Nitrogen 5 mg/dL (7-17); Calcium 9.8 mg/dL (8.4-10.2); Carbon Dioxide 19 mmol/L (22-30); Chloride 106 mmol/L (98-107); Glucose 126 mg/dL (74-99); Lipase 387 U/L (23-300); Non-African American GFR(CKD) >90 (>60 ml/min/1.73 sqM); Sodium 135 mmol/L (137-145); Total Bilirubin 0.6 mg/dL (0.2-1.3); Total Protein 6.4 g/dL (6.3-8.2)
[2021-07-10 21:06] LABS: AST 39 U/L (14-36); Alkaline Phosphatase 46 U/L (38-126); Potassium 3.9 mmol/L (3.5-5.1)
--- NOTE | 2021-07-10 21:54 | CT ---
EXAMINATION TYPE: CT abdomen pelvis wo con CT DLP: 703.4 mGycm, Automated exposure control for dose reduction was used. DATE OF EXAM: 07/10/2021 9:44 PM COMPARISON: CT abdomen pelvis most recent from 04/29/2021 . CLINICAL INDICATION:Female, 30 years old with history of Postsurgical abdominal pain; recent gallblad will sx, pain TECHNIQUE: Standard CT of the abdomen and pelvis without IV or oral contrast. Lack of IV or oral co ntrast limits evaluation of solid and hollow organ viscera. Coronal and sagittal reformats were perfo rmed. FINDINGS: LOWER CHEST: Unremarkable ABDOMEN LIVER: Unremarkable GALLBLADDER AND BILE DUCTS: Interval removal of the gallbladder. Gallbladder clips in place. No organ izing fluid collection. PANCREAS: Unremarkable. SPLEEN: Unremarkable. ADRENAL GLANDS: Unremarkable. KIDNEYS AND URETERS: No evidence of hydronephrosis. Nonobstructing 3 mm right renal calculus. The ure ters are unremarkable. PELVIS BLADDER: Unremarkable REPRODUCTIVE: Unremarkable. ABDOMEN & PELVIS STOMACH AND BOWEL: No evidence of bowel obstruction. The appendix is normal. PERITONEUM: No evidence of pneumoperitoneum or free fluid. VASCULATURE: No evidence of aortic aneurysm. MUSCULOSKELETAL: No acute osseous abnormalities LYMPH NODES: No gross evidence for lymphadenopathy. SOFT TISSUE/ABDOMINAL WALL: Few areas of focus is of gas within the subcutaneous tissues consistent w ith reported history of recent surgery. No organizing fluid collection identified in the anterior abd ominal wall. Injection granulomas throughout the anterior abdominal wall. IMPRESSION: 1. Postsurgical changes to the gallbladder fossa and abdominal soft tissues and wall. No evidence of organizing fluid collection or evidence for acute process. 2. Nonobstructing right renal calculus.
[2021-07-10] MEDS ORDERED: HYDROcodone/APAP 5-325MG 1 EACH TAB PO STA (22:16)
[2021-07-10 22:43] VITALS: BP 103/79; PULSE 90
== END 2021-07-10 22:43 | disposition home or self-care (01) ==
LOC: EC 18:04
DX: N39.0 Urinary tract infection, site not specified (principal); G89.18 Other acute postprocedural pain; J45.909 Unspecified asthma, uncomplicated; E11.9 Type 2 diabetes mellitus without complications; K21.9 Gastro-esophageal reflux disease without esophagitis; F41.9 Anxiety disorder, unspecified; F32.A Depression, unspecified; F43.10 Post-traumatic stress disorder, unspecified; F12.90 Cannabis use, unspecified, uncomplicated; Z91.040 Latex allergy status; Z88.2 Allergy status to sulfonamides; Z88.1 Allergy status to other antibiotic agents
CPT/HCPCS: 99284; 96372; 80053; 83690; 85025; 74176; J1170; 36415

== ENCOUNTER 2021-07-22 10:01 | Emergency (ER) | payer OTHER ==
[2021-07-22 10:05] VITALS: RESP 20; TEMP 97.9
[2021-07-22] MEDS ORDERED: SODIUM CHLORIDE 0.9% 500 ML 500 ML IV STA (10:25)
[2021-07-22] MEDS ORDERED: SODIUM CHLORIDE 0.9% 1,000 ML IV STA (10:25)
[2021-07-22] MEDS ORDERED: PROCHLORPERAZINE INJ 10 MG/2 ML VIAL IVP STA (10:25)
[2021-07-22] MEDS ORDERED: diphenhydrAMINE 50 MG/ML 1 ML VIAL IVP STA (10:25)
[2021-07-22] MEDS ORDERED: KETOROLAC 15 MG/ML 1 ML VIAL IVP STA (10:26)
--- NOTE | 2021-07-22 10:50 | ED ---
Abdominal Pain HPI - General Chief Complaint: Abdominal Pain Stated Complaint: Abd Pain Time Seen by Provider: 07/22/21 10:11 Source: patient, RN notes reviewed Mode of arrival: ambulatory Limitations: no limitations - History of Present Illness Initial Comments: This a 30-year-old female presents emergency Department chief complaint abdominal pain. Patient has chronic abdominal issues. Patient had recent cholecystectomy at [facility]. Patient states started having pain again this morning. Patient states that she has had some nausea vomiting there is a sibling change in bowel habits no dysuria no hematuria patient offers no other complaints. - Related Data Home Medications Medication Instructions Recorded Confirmed Atorvastatin Calcium [Lipitor] 40 mg PO DAILY 05/16/21 07/10/21 ondansetron HCL [Zofran] 4 mg PO Q8H PRN 05/16/21 07/10/21 Butalb/APAP/Caff 50-325-40Mg 1 tab PO Q4H PRN 07/02/21 07/10/21 [Fioricet 50-325-40] Escitalopram [Lexapro] 10 mg PO DAILY 07/02/21 07/10/21 Fenofibrate [Lofibra] 160 mg PO DAILY 07/02/21 07/10/21 Midodrine HCl 5 mg PO BID PRN 07/02/21 07/10/21 hydrOXYzine pamoate [hydrOXYzine 25 mg PO TID PRN 07/02/21 07/10/21 PAMOATE] metFORMIN HCL 500 mg PO BID 07/02/21 07/10/21 polyethylene glycoL 3350 [Miralax] 17 gm PO DAILY PRN 07/02/21 07/10/21 QUEtiapine FUMARATE [SEROquel] 300 mg PO HS 07/10/21 07/10/21 Previous Rx's Medication Instructions Recorded Acetaminophen Tab [Tylenol] 650 mg PO Q6HR PRN tab 05/05/21 Cefdinir [Omnicef] 300 mg PO BID #14 capsule 07/10/21 Docusate [Colace] 100 mg PO BID #20 capsule 07/10/21 Allergies Allergy/AdvReac Type Severity Reaction Status Date / Time bee pollen Allergy Severe Anaphylaxis Verified 07/22/21 10:05 haloperidol [From Haldol] Allergy Severe QUIT Verified 07/22/21 10:05 BREATHING haloperidol lactate Allergy Severe QUIT Verified 07/22/21 10:05 [From Haldol] BREATHING latex Allergy Severe RASH-THROAT Verified 07/22/21 10:05 CLOSES [place] Allergy Anaphylaxis Verified 07/22/21 10:05 coconut Allergy Anaphylaxis Verified 07/22/21 10:05 pineapple Allergy Anaphylaxis Verified 07/22/21 10:05 prednisone Allergy THROAT Verified 07/22/21 10:05 SWELLS spider venom Allergy Swelling Verified 07/22/21 10:05 Sulfa (Sulfonamide Allergy THROAT Verified 07/22/21 10:05 Antibiotics) SWELLS venom-wasp Allergy Swelling Verified 07/22/21 10:05 venom-wasp protein Allergy Swelling Verified 07/22/21 10:05 promethazine HCl AdvReac Severe Nausea & Verified 07/22/21 10:05 [From Phenergan] Vomiting tramadol AdvReac Severe Nausea & Verified 07/22/21 10:05 Vomiting amoxicillin AdvReac Nausea & Verified 07/22/21 10:05 Vomiting ANTS AdvReac Mild Anaphylaxis Uncoded 07/22/21 10:05 Review of Systems ROS Statement: Those systems with pertinent positive or pertinent negative responses have been documented in the HPI. ROS Other: All systems not noted in ROS Statement are negative. Past Medical History Past Medical History: Asthma, Diabetes Mellitus, GERD/Reflux Additional Past Medical History / Comment(s): migraines, degenerative disk disease, endometriosis, lupus, pancreatitis, DM2- diet controlled History of Any Multi-Drug Resistant Organisms: None Reported Past Surgical History: Orthopedic Surgery Additional Past Surgical History / Comment(s): laparoscopc surgery for endometriosis, cyst removed from left foot, EGD, Past Anesthesia/Blood Transfusion Reactions: Previous Problems w/ Anesthesia Additional Past Anesthesia/Blood Transfusion Reaction / Comment(s): hard to wake up for 48-72 hours after laparoscopic surgery-was in hosp. for 3 days Past Psychological History: Anxiety, Depression, PTSD Smoking Status: Never smoker Past Alcohol Use History: None Reported Past Drug Use History: Marijuana - Past Family History Mother Family Medical History: No Reported History Additional Family Medical History / Comment(s): hx migraines Father Family Medical History: Coronary Artery Disease (CAD), Hypertension Additional Family Medical History / Comment(s): ddd, alcoholism & drug use General Exam Limitations: no limitations General appearance: alert, in no apparent distress Head exam: Present: atraumatic, normocephalic, normal inspection Eye exam: Present: normal appearance, PERRL, EOMI. Absent: scleral icterus, conjunctival injection, periorbital swelling Respiratory exam: Present: normal lung sounds bilaterally. Absent: respiratory distress, wheezes, rales, rhonchi, stridor Cardiovascular Exam: Present: regular rate, normal rhythm, normal heart sounds. Absent: systolic murmur, diastolic murmur, rubs, gallop, clicks GI/Abdominal exam: Present: soft, tenderness (Mild upper abdominal tenderness), normal bowel sounds. Absent: distended, guarding, rebound, rigid Back exam: Absent: CVA tenderness (R), CVA tenderness (L) Neurological exam: Present: alert Skin exam: Present: warm, dry, intact, normal color. Absent: rash Course Vital Signs 07/22/21 10:02 Temperature 97.9 F Pulse Rate 87 Respiratory 20 Rate Blood Pressure 129/95 O2 Sat by Pulse 97 Oximetry - Reevaluation(s) Reevaluation #1: 07/22/21 10:50 Nurses received phone call from patient's guardian stating that patient has drug-seeking she has been at multiple ERs of recent. She is not to receive any narcotics. Medical Decision Making - Medical Decision Making presented from records from for abdominal pain. Patient has chronic pancreati tis. Patient has mildly elevated lipase. She has had no recurrent emesis in the emergency department. Patient is noncompliant with her medications. Patient is continually requesting narcotics and she was informed that she will not receive narcotics. Patient will be discharged with clear liquids she will return for any worsening changing symptoms and she is advised take her medications as directed. - Lab Data Result diagrams: 07/22/21 11:42 07/22/21 11:42 Lab Results 07/22/21 07/22/21 07/22/21 Range/Units 11:05 11:05 11:42 WBC 4.6 (3.8-10.6) k/uL RBC 3.74 L (3.80-5.40) m/uL Hgb 11.9 (11.4-16.0) gm/dL Hct 36.9 (34.0-46.0) % MCV 98.8 (80.0-100.0) fL MCH 31.8 (25.0-35.0) pg MCHC 32.2 (31.0-37.0) g/dL RDW 13.8 (11.5-15.5) % Plt Count 232 (150-450) k/uL MPV 7.8 Neutrophils % 59 % Lymphocytes % 32 % Monocytes % 5 % Eosinophils % 2 % Basophils % 1 % Neutrophils # 2.7 (1.3-7.7) k/uL Lymphocytes # 1.5 (1.0-4.8) k/uL Monocytes # 0.2 (0-1.0) k/uL Eosinophils # 0.1 (0-0.7) k/uL Basophils # 0.0 (0-0.2) k/uL Sodium (137-145) mmol/L Potassium (3.5-5.1) mmol/L Chloride (98-107) mmol/L Carbon Dioxide (22-30) mmol/L Anion Gap mmol/L BUN (7-17) mg/dL Creatinine (0.52-1.04) mg/dL Est GFR (CKD-EPI)AfAm (>60 ml/min/1.73 sqM) Est GFR (CKD-EPI)NonAf (>60 ml/min/1.73 sqM) Glucose (74-99) mg/dL Calcium (8.4-10.2) mg/dL Total Bilirubin (0.2-1.3) mg/dL AST (14-36) U/L ALT (4-34) U/L Alkaline Phosphatase (38-126) U/L Total Protein (6.3-8.2) g/dL Albumin (3.5-5.0) g/dL Amylase (30-110) U/L Lipase 992 H (23-300) U/L Urine Color Yellow Urine Appearance Cloudy H (Clear) Urine pH 6.5 (5.0-8.0) Ur Specific [place] 1.018 (1.001-1.035) Urine Protein Trace H (Negative) Urine Glucose (UA) 4+ H (Negative) Urine Ketones Negative (Negative) Urine Blood Negative (Negative) Urine Nitrite Negative (Negative) Urine Bilirubin Negative (Negative) Urine Urobilinogen <2.0 (<2.0) mg/dL Ur Leukocyte Esterase Trace H (Negative) Urine RBC 1 (0-5) /hpf Urine WBC 5 (0-5) /hpf Ur Squamous Epith Cells 15 H (0-4) /hpf Urine Mucus Rare H (None) /hpf 07/22/21 Range/Units 11:42 WBC (3.8-10.6) k/uL RBC (3.80-5.40) m/uL Hgb (11.4-16.0) gm/dL Hct (34.0-46.0) % MCV (80.0-100.0) fL MCH (25.0-35.0) pg MCHC (31.0-37.0) g/dL RDW (11.5-15.5) % Plt Count (150-450) k/uL MPV Neutrophils % % Lymphocytes % % Monocytes % % Eosinophils % % Basophils % % Neutrophils # (1.3-7.7) k/uL Lymphocytes # (1.0-4.8) k/uL Monocytes # (0-1.0) k/uL Eosinophils # (0-0.7) k/uL Basophils # (0-0.2) k/uL Sodium 137 (137-145) mmol/L Potassium 4.4 (3.5-5.1) mmol/L Chloride 109 H (98-107) mmol/L Carbon Dioxide 22 (22-30) mmol/L Anion Gap 6 mmol/L BUN 6 L (7-17) mg/dL Creatinine 0.61 (0.52-1.04) mg/dL Est GFR (CKD-EPI)AfAm >90 (>60 ml/min/1.73 sqM) Est GFR (CKD-EPI)NonAf >90 (>60 ml/min/1.73 sqM) Glucose 113 H (74-99) mg/dL Calcium 9.0 (8.4-10.2) mg/dL Total Bilirubin 0.4 (0.2-1.3) mg/dL AST 26 (14-36) U/L ALT 14 (4-34) U/L Alkaline Phosphatase 48 (38-126) U/L Total Protein 6.0 L (6.3-8.2) g/dL Albumin 3.3 L (3.5-5.0) g/dL Amylase 45 (30-110) U/L Lipase (23-300) U/L Urine Color Urine Appearance (Clear) Urine pH (5.0-8.0) Ur Specific [place] (1.001-1.035) Urine Protein (Negative) Urine Glucose (UA) (Negative) Urine Ketones (Negative) Urine Blood (Negative) Urine Nitrite (Negative) Urine Bilirubin (Negative) Urine Urobilinogen (<2.0) mg/dL Ur Leukocyte Esterase (Negative) Urine RBC (0-5) /hpf Urine WBC (0-5) /hpf Ur Squamous Epith Cells (0-4) /hpf Urine Mucus (None) /hpf Disposition Clinical Impression: Chronic pancreatitis Disposition: HOME SELF-CARE Condition: Stable Instructions (If sedation given, give patient instructions): Pancreatitis (ED) Additional Instructions: Please return to the Emergency Department if symptoms worsen or any other concerns. Is patient prescribed a controlled substance at d/c from ED?: No Referrals: None,Stated [Primary Care Provider] - 1-2 days Time of Disposition: 13:23
[2021-07-22 11:16] LABS: Appearance,Urine Cloudy (Clear); Bilirubin,Urine Negative (Negative); Blood,Urine Negative (Negative); Color,Urine Yellow; Glucose,Urine (UA) 4+ (Negative); Ketones,Urine Negative (Negative); Leukocyte Esterase,Urine Trace (Negative); Mucus,Urine Rare /hpf; Nitrite,Urine Negative (Negative); PH, Urine 6.5 (5.0-8.0); Protein,Urine Trace (Negative); RBC,Urine 1 /hpf (0-5); Specific Gravity,Urine 1.018 (1.001-1.035); Squamous Epithelial Cell,Urine 15 /hpf (0-4); Urobilinogen,Urine <2.0 mg/dL (<2.0); WBC,Urine 5 /hpf (0-5)
[2021-07-22 12:09] LABS: Basophils % (A) 1 %; Eosinophils # (A) 0.1 k/uL (0-0.7); Eosinophils % (A) 2 %; HCT 36.9 % (34.0-46.0); HGB 11.9 gm/dL (11.4-16.0); Lymphocytes # (A) 1.5 k/uL (1.0-4.8); Lymphocytes % (A) 32 %; MCH 31.8 pg (25.0-35.0); MCHC 32.2 g/dL (31.0-37.0); MCV 98.8 fL (80.0-100.0); Mean Platelet Volume 7.8; Monocytes # (A) 0.2 k/uL (0-1.0); Monocytes % (A) 5 %; Neutrophils # (A) 2.7 k/uL (1.3-7.7); Neutrophils % (A) 59 %; Platelet Count 232 k/uL (150-450); RBC 3.74 m/uL (3.80-5.40); RDW 13.8 % (11.5-15.5); WBC 4.6 k/uL (3.8-10.6)
[2021-07-22 12:29] LABS: ALT 14 U/L (4-34); AST 26 U/L (14-36); African American GFR (CKD) >90 (>60 ml/min/1.73 sqM); Albumin 3.3 g/dL (3.5-5.0); Alkaline Phosphatase 48 U/L (38-126); Amylase 45 U/L (30-110); Anion Gap 6 mmol/L; Blood Urea Nitrogen 6 mg/dL (7-17); Carbon Dioxide 22 mmol/L (22-30); Chloride 109 mmol/L (98-107); Glucose 113 mg/dL (74-99); Non-African American GFR(CKD) >90 (>60 ml/min/1.73 sqM); Potassium 4.4 mmol/L (3.5-5.1); Sodium 137 mmol/L (137-145); Total Bilirubin 0.4 mg/dL (0.2-1.3)
[2021-07-22 13:50] VITALS: BP 126/71; PULSE 82
== END 2021-07-22 13:50 | disposition home or self-care (01) ==
LOC: EEVIPCON 10:01 → EC 10:01
DX: K86.1 Other chronic pancreatitis (principal); E11.9 Type 2 diabetes mellitus without complications; J45.909 Unspecified asthma, uncomplicated; K21.9 Gastro-esophageal reflux disease without esophagitis; F32.A Depression, unspecified; F41.9 Anxiety disorder, unspecified; F12.90 Cannabis use, unspecified, uncomplicated; Z79.84 Long term (current) use of oral hypoglycemic drugs; Z79.899 Other long term (current) drug therapy
CPT/HCPCS: 36415; 80053; 82150; 83690; 85025; 81001; 99284; 96374; 96375 ×2; 96361; J1200; J0780; J1885

== ENCOUNTER 2021-07-24 09:19 | Emergency (ER) | payer OTHER ==
[2021-07-24 09:25] VITALS: TEMP 98.9
[2021-07-24 09:59] LABS: Basophils % (A) 1 %; Eosinophils # (A) 0.1 k/uL (0-0.7); Eosinophils % (A) 2 %; HCT 37.1 % (34.0-46.0); HGB 12.4 gm/dL (11.4-16.0); Lymphocytes # (A) 1.3 k/uL (1.0-4.8); Lymphocytes % (A) 34 %; MCH 32.5 pg (25.0-35.0); MCHC 33.3 g/dL (31.0-37.0); MCV 97.5 fL (80.0-100.0); Mean Platelet Volume 9.5; Monocytes # (A) 0.2 k/uL (0-1.0); Monocytes % (A) 4 %; Neutrophils # (A) 2.2 k/uL (1.3-7.7); Neutrophils % (A) 58 %; Platelet Count 141 k/uL (150-450); RBC 3.81 m/uL (3.80-5.40); RDW 13.7 % (11.5-15.5); WBC 3.8 k/uL (3.8-10.6)
[2021-07-24 10:07] LABS: ALT 17 U/L (4-34); AST 27 U/L (14-36); African American GFR (CKD) >90 (>60 ml/min/1.73 sqM); Albumin 3.8 g/dL (3.5-5.0); Alkaline Phosphatase 55 U/L (38-126); Anion Gap 11 mmol/L; Blood Urea Nitrogen 9 mg/dL (7-17); Calcium 10.2 mg/dL (8.4-10.2); Carbon Dioxide 20 mmol/L (22-30); Chloride 106 mmol/L (98-107); Glucose 241 mg/dL (74-99); Lipase 830 U/L (23-300); Non-African American GFR(CKD) >90 (>60 ml/min/1.73 sqM); Potassium 4.4 mmol/L (3.5-5.1); Sodium 137 mmol/L (137-145); Total Bilirubin 0.5 mg/dL (0.2-1.3); Total Protein 6.8 g/dL (6.3-8.2)
--- NOTE | 2021-07-24 10:14 | ED ---
Abdominal Pain HPI - General Chief Complaint: Abdominal Pain Stated Complaint: Abd pain Time Seen by Provider: 07/24/21 09:22 Source: patient, RN notes reviewed Mode of arrival: ambulatory Limitations: no limitations - History of Present Illness Initial Comments: 30-year-old female presented for abdominal pain. Patient has chronic pancreatitis issues. Patient states that she is concerned this morning which aggravated her stomach. Patient states is concerned about her pancreas. Patient states that she's been drinking a large amount of pot which she normally does not. Patient has some nausea no vomiting no diarrhea no constipation no other complaints. Patient had cholecystectomy over a month ago. - Related Data Home Medications Medication Instructions Recorded Confirmed Atorvastatin Calcium [Lipitor] 40 mg PO DAILY 05/16/21 07/10/21 ondansetron HCL [Zofran] 4 mg PO Q8H PRN 05/16/21 07/10/21 Butalb/APAP/Caff 50-325-40Mg 1 tab PO Q4H PRN 07/02/21 07/10/21 [Fioricet 50-325-40] Escitalopram [Lexapro] 10 mg PO DAILY 07/02/21 07/10/21 Fenofibrate [Lofibra] 160 mg PO DAILY 07/02/21 07/10/21 Midodrine HCl 5 mg PO BID PRN 07/02/21 07/10/21 hydrOXYzine pamoate [hydrOXYzine 25 mg PO TID PRN 07/02/21 07/10/21 PAMOATE] metFORMIN HCL 500 mg PO BID 07/02/21 07/10/21 polyethylene glycoL 3350 [Miralax] 17 gm PO DAILY PRN 07/02/21 07/10/21 QUEtiapine FUMARATE [SEROquel] 300 mg PO HS 07/10/21 07/10/21 Previous Rx's Medication Instructions Recorded Acetaminophen Tab [Tylenol] 650 mg PO Q6HR PRN tab 05/05/21 Cefdinir [Omnicef] 300 mg PO BID #14 capsule 07/10/21 Docusate [Colace] 100 mg PO BID #20 capsule 07/10/21 Allergies Allergy/AdvReac Type Severity Reaction Status Date / Time bee pollen Allergy Severe Anaphylaxis Verified 07/24/21 09:25 haloperidol [From Haldol] Allergy Severe QUIT Verified 07/24/21 09:25 BREATHING haloperidol lactate Allergy Severe QUIT Verified 07/24/21 09:25 [From Haldol] BREATHING latex Allergy Severe RASH-THROAT Verified 07/24/21 09:25 CLOSES [place] Allergy Anaphylaxis Verified 07/24/21 09:25 coconut Allergy Anaphylaxis Verified 07/24/21 09:25 pineapple Allergy Anaphylaxis Verified 07/24/21 09:25 prednisone Allergy THROAT Verified 07/24/21 09:25 SWELLS spider venom Allergy Swelling Verified 07/24/21 09:25 Sulfa (Sulfonamide Allergy THROAT Verified 07/24/21 09:25 Antibiotics) SWELLS venom-wasp Allergy Swelling Verified 07/24/21 09:25 venom-wasp protein Allergy Swelling Verified 07/24/21 09:25 promethazine HCl AdvReac Severe Nausea & Verified 07/24/21 09:25 [From Phenergan] Vomiting tramadol AdvReac Severe Nausea & Verified 07/24/21 09:25 Vomiting amoxicillin AdvReac Nausea & Verified 07/24/21 09:25 Vomiting ANTS AdvReac Mild Anaphylaxis Uncoded 07/24/21 09:25 Review of Systems ROS Statement: Those systems with pertinent positive or pertinent negative responses have been documented in the HPI. ROS Other: All systems not noted in ROS Statement are negative. Past Medical History Past Medical History: Asthma, Diabetes Mellitus, GERD/Reflux Additional Past Medical History / Comment(s): migraines, degenerative disk disease, endometriosis, lupus, pancreatitis, DM2- diet controlled History of Any Multi-Drug Resistant Organisms: None Reported Past Surgical History: Orthopedic Surgery Additional Past Surgical History / Comment(s): laparoscopc surgery for endometriosis, cyst removed from left foot, EGD, Past Anesthesia/Blood Transfusion Reactions: Previous Problems w/ Anesthesia Additional Past Anesthesia/Blood Transfusion Reaction / Comment(s): hard to wake up for 48-72 hours after laparoscopic surgery-was in hosp. for 3 days Past Psychological History: Anxiety, Depression, PTSD Smoking Status: Never smoker Past Alcohol Use History: None Reported Past Drug Use History: Marijuana - Past Family History Mother Family Medical History: No Reported History Additional Family Medical History / Comment(s): hx migraines Father Family Medical History: Coronary Artery Disease (CAD), Hypertension Additional Family Medical History / Comment(s): ddd, alcoholism & drug use General Exam Limitations: no limitations General appearance: alert, in no apparent distress Head exam: Present: atraumatic, normocephalic, normal inspection Eye exam: Present: normal appearance, PERRL, EOMI. Absent: scleral icterus, conjunctival injection, periorbital swelling ENT exam: Present: normal exam, mucous membranes moist Neck exam: Present: normal inspection. Absent: tenderness, meningismus, lymphadenopathy Respiratory exam: Present: normal lung sounds bilaterally. Absent: respiratory distress, wheezes, rales, rhonchi, stridor Cardiovascular Exam: Present: regular rate, normal rhythm, normal heart sounds. Absent: systolic murmur, diastolic murmur, rubs, gallop, clicks GI/Abdominal exam: Present: soft, tenderness, normal bowel sounds. Absent: distended, guarding, rebound, rigid Course Vital Signs 07/24/21 09:22 Temperature 98.9 F Pulse Rate 116 H Respiratory 20 Rate Blood Pressure 120/87 O2 Sat by Pulse 99 Oximetry Medical Decision Making - Medical Decision Making Patient is lipase is improving. Patient instructed that she needs follow a clear liquid diet she should avoid pop Intake. Patient discharged stable condition return parameters discussed. - Lab Data Result diagrams: 07/24/21 09:40 07/24/21 09:40 Lab Results 07/24/21 07/24/21 Range/Units 09:40 09:40 WBC 3.8 (3.8-10.6) k/uL RBC 3.81 (3.80-5.40) m/uL Hgb 12.4 (11.4-16.0) gm/dL Hct 37.1 (34.0-46.0) % MCV 97.5 (80.0-100.0) fL MCH 32.5 (25.0-35.0) pg MCHC 33.3 (31.0-37.0) g/dL RDW 13.7 (11.5-15.5) % Plt Count 141 L (150-450) k/uL MPV 9.5 Neutrophils % 58 % Lymphocytes % 34 % Monocytes % 4 % Eosinophils % 2 % Basophils % 1 % Neutrophils # 2.2 (1.3-7.7) k/uL Lymphocytes # 1.3 (1.0-4.8) k/uL Monocytes # 0.2 (0-1.0) k/uL Eosinophils # 0.1 (0-0.7) k/uL Basophils # 0.0 (0-0.2) k/uL Sodium 137 (137-145) mmol/L Potassium 4.4 (3.5-5.1) mmol/L Chloride 106 (98-107) mmol/L Carbon Dioxide 20 L (22-30) mmol/L Anion Gap 11 mmol/L BUN 9 (7-17) mg/dL Creatinine 0.69 (0.52-1.04) mg/dL Est GFR (CKD-EPI)AfAm >90 (>60 ml/min/1.73 sqM) Est GFR (CKD-EPI)NonAf >90 (>60 ml/min/1.73 sqM) Glucose 241 H (74-99) mg/dL Calcium 10.2 (8.4-10.2) mg/dL Total Bilirubin 0.5 (0.2-1.3) mg/dL AST 27 (14-36) U/L ALT 17 (4-34) U/L Alkaline Phosphatase 55 (38-126) U/L Total Protein 6.8 (6.3-8.2) g/dL Albumin 3.8 (3.5-5.0) g/dL Lipase 830 H (23-300) U/L Disposition Clinical Impression: Chronic pancreatitis, Abdominal pain Disposition: HOME SELF-CARE Condition: Stable Instructions (If sedation given, give patient instructions): Abdominal Pain (ED) Additional Instructions: Please follow clear liquid diet as directed.Please return to the Emergency Department if symptoms worsen or any other concerns. Is patient prescribed a controlled substance at d/c from ED?: No Referrals: [facility] [Primary Care Provider] - 1-2 days Time of Disposition: 10:13
[2021-07-24 10:42] VITALS: BP 128/76; PULSE 112; RESP 18
== END 2021-07-24 10:42 | disposition home or self-care (01) ==
LOC: EC 09:19
DX: K86.1 Other chronic pancreatitis (principal); R10.9 Unspecified abdominal pain; E11.9 Type 2 diabetes mellitus without complications; J45.909 Unspecified asthma, uncomplicated; Z88.8 Allergy status to other drugs, medicaments and biological substances; Z88.6 Allergy status to analgesic agent; Z91.018 Allergy to other foods; Z88.2 Allergy status to sulfonamides; Z91.030 Bee allergy status; Z91.038 Other insect allergy status
CPT/HCPCS: 36415; 80053; 83690; 85025; 99284

== ENCOUNTER 2021-07-26 13:02 | Emergency (ER) | payer OTHER ==
[2021-07-26] MEDS ORDERED: SODIUM CHLORIDE 0.9% 500 ML 500 ML IV STA (13:17)
[2021-07-26] MEDS ORDERED: FAMOTIDINE 20 MG/2 ML VIAL IV STA (13:30)
[2021-07-26] MEDS ORDERED: METOCLOPRAMIDE 5 MG/ML 2 ML VIAL IVP STA (13:30)
--- NOTE | 2021-07-26 13:34 | ED ---
General Adult HPI - General Chief complaint: Nausea/Vomiting/Diarrhea Stated complaint: Abd pain Time Seen by Provider: 07/26/21 13:04 Source: patient, EMS, RN notes reviewed Mode of arrival: EMS Limitations: no limitations - History of Present Illness Initial comments: Patient is a 30-year-old female presenting to the emergency Department with chronic abdominal pain and chronic headache. Patient states headache seems like her regular migraines. Patient feels nauseous. Patient has vomited. Patient also has abdominal discomfort similar to her chronic abdominal pain. Patient is a few weeks postop. Patient has had follow-up for this including emergency visits and CT scans. No fever. - Related Data Home Medications Medication Instructions Recorded Confirmed Atorvastatin Calcium [Lipitor] 40 mg PO DAILY 05/16/21 07/10/21 ondansetron HCL [Zofran] 4 mg PO Q8H PRN 05/16/21 07/10/21 Butalb/APAP/Caff 50-325-40Mg 1 tab PO Q4H PRN 07/02/21 07/10/21 [Fioricet 50-325-40] Escitalopram [Lexapro] 10 mg PO DAILY 07/02/21 07/10/21 Fenofibrate [Lofibra] 160 mg PO DAILY 07/02/21 07/10/21 Midodrine HCl 5 mg PO BID PRN 07/02/21 07/10/21 hydrOXYzine pamoate [hydrOXYzine 25 mg PO TID PRN 07/02/21 07/10/21 PAMOATE] metFORMIN HCL 500 mg PO BID 07/02/21 07/10/21 polyethylene glycoL 3350 [Miralax] 17 gm PO DAILY PRN 07/02/21 07/10/21 QUEtiapine FUMARATE [SEROquel] 300 mg PO HS 07/10/21 07/10/21 Previous Rx's Medication Instructions Recorded Acetaminophen Tab [Tylenol] 650 mg PO Q6HR PRN tab 05/05/21 Cefdinir [Omnicef] 300 mg PO BID #14 capsule 07/10/21 Docusate [Colace] 100 mg PO BID #20 capsule 07/10/21 Allergies Allergy/AdvReac Type Severity Reaction Status Date / Time bee pollen Allergy Severe Anaphylaxis Verified 07/26/21 13:10 haloperidol [From Haldol] Allergy Severe QUIT Verified 07/26/21 13:10 BREATHING haloperidol lactate Allergy Severe QUIT Verified 07/26/21 13:10 [From Haldol] BREATHING latex Allergy Severe RASH-THROAT Verified 07/26/21 13:10 CLOSES [place] Allergy Anaphylaxis Verified 07/26/21 13:10 coconut Allergy Anaphylaxis Verified 07/26/21 13:10 pineapple Allergy Anaphylaxis Verified 07/26/21 13:10 prednisone Allergy THROAT Verified 07/26/21 13:10 SWELLS spider venom Allergy Swelling Verified 07/26/21 13:10 Sulfa (Sulfonamide Allergy THROAT Verified 07/26/21 13:10 Antibiotics) SWELLS venom-wasp Allergy Swelling Verified 07/26/21 13:10 venom-wasp protein Allergy Swelling Verified 07/26/21 13:10 promethazine HCl AdvReac Severe Nausea & Verified 07/26/21 13:10 [From Phenergan] Vomiting tramadol AdvReac Severe Nausea & Verified 07/26/21 13:10 Vomiting amoxicillin AdvReac Nausea & Verified 07/26/21 13:10 Vomiting ANTS AdvReac Mild Anaphylaxis Uncoded 07/24/21 09:25 Review of Systems ROS Statement: Those systems with pertinent positive or pertinent negative responses have been documented in the HPI. ROS Other: All systems not noted in ROS Statement are negative. Constitutional: Denies: fever Eyes: Denies: eye pain ENT: Denies: ear pain Respiratory: Denies: cough Cardiovascular: Denies: chest pain Endocrine: Denies: fatigue Gastrointestinal: Reports: as per HPI, abdominal pain, nausea, vomiting Genitourinary: Denies: dysuria Musculoskeletal: Denies: back pain Skin: Denies: rash Neurological: Reports: headache. Denies: weakness, confusion Past Medical History Past Medical History: Asthma, Diabetes Mellitus, GERD/Reflux Additional Past Medical History / Comment(s): migraines, degenerative disk disease, endometriosis, lupus, pancreatitis, DM2- diet controlled History of Any Multi-Drug Resistant Organisms: None Reported Past Surgical History: Orthopedic Surgery Additional Past Surgical History / Comment(s): laparoscopc surgery for endometriosis, cyst removed from left foot, EGD, Past Anesthesia/Blood Transfusion Reactions: Previous Problems w/ Anesthesia Additional Past Anesthesia/Blood Transfusion Reaction / Comment(s): hard to wake up for 48-72 hours after laparoscopic surgery-was in hosp. for 3 days Past Psychological History: Anxiety, Depression, PTSD Smoking Status: Never smoker Past Alcohol Use History: None Reported Past Drug Use History: Marijuana - Past Family History Mother Family Medical History: No Reported History Additional Family Medical History / Comment(s): hx migraines Father Family Medical History: Coronary Artery Disease (CAD), Hypertension Additional Family Medical History / Comment(s): ddd, alcoholism & drug use General Exam Limitations: no limitations General appearance: alert, in no apparent distress Head exam: Present: normocephalic Eye exam: Present: normal appearance Neck exam: Present: normal inspection. Absent: tenderness Respiratory exam: Present: normal lung sounds bilaterally Cardiovascular Exam: Present: regular rate, normal rhythm GI/Abdominal exam: Present: soft, tenderness (Mild epigastric tenderness). Absent: distended Extremities exam: Present: normal inspection Neurological exam: Present: alert, oriented X3, CN II-XII intact. Absent: motor sensory deficit Psychiatric exam: Present: normal affect, normal mood Skin exam: Present: normal color Course Vital Signs 07/26/21 13:04 Temperature 98.5 F Pulse Rate 114 H Respiratory 18 Rate Blood Pressure 110/78 O2 Sat by Pulse 96 Oximetry Medical Decision Making - Medical Decision Making Patient reevaluated and resting comfortably in bed. Patient feels improved h owever request specifically Toradol and Benadryl by name. Patient updated on results and is comfortable with discharge home. - Lab Data Result diagrams: 07/26/21 13:41 07/26/21 13:41 Lab Results 07/26/21 07/26/21 07/26/21 Range/Units 13:41 13:41 13:41 WBC 4.5 (3.8-10.6) k/uL RBC 3.58 L (3.80-5.40) m/uL Hgb 11.8 (11.4-16.0) gm/dL Hct 34.4 (34.0-46.0) % MCV 96.2 (80.0-100.0) fL MCH 32.9 (25.0-35.0) pg MCHC 34.2 (31.0-37.0) g/dL RDW 14.4 (11.5-15.5) % Plt Count 255 (150-450) k/uL MPV 7.8 Neutrophils % 68 % Lymphocytes % 24 % Monocytes % 4 % Eosinophils % 1 % Basophils % 0 % Neutrophils # 3.0 (1.3-7.7) k/uL Lymphocytes # 1.1 (1.0-4.8) k/uL Monocytes # 0.2 (0-1.0) k/uL Eosinophils # 0.0 (0-0.7) k/uL Basophils # 0.0 (0-0.2) k/uL Sodium 136 L (137-145) mmol/L Potassium 4.3 (3.5-5.1) mmol/L Chloride 106 (98-107) mmol/L Carbon Dioxide 24 (22-30) mmol/L Anion Gap 6 mmol/L BUN 10 (7-17) mg/dL Creatinine 0.74 (0.52-1.04) mg/dL Est GFR (CKD-EPI)AfAm >90 (>60 ml/min/1.73 sqM) Est GFR (CKD-EPI)NonAf >90 (>60 ml/min/1.73 sqM) Glucose 152 H (74-99) mg/dL Calcium 10.4 H (8.4-10.2) mg/dL Total Bilirubin 0.4 (0.2-1.3) mg/dL AST 33 (14-36) U/L ALT 18 (4-34) U/L Alkaline Phosphatase 46 (38-126) U/L Total Protein 6.4 (6.3-8.2) g/dL Albumin 3.6 (3.5-5.0) g/dL Amylase 48 (30-110) U/L Lipase 880 H (23-300) U/L Urine Color Yellow Urine Appearance Cloudy H (Clear) Urine pH 6.5 (5.0-8.0) Ur Specific [place] >1.050 H (1.001-1.035) Urine Protein 1+ H (Negative) Urine Glucose (UA) 1+ H (Negative) Urine Ketones Negative (Negative) Urine Blood Negative (Negative) Urine Nitrite Negative (Negative) Urine Bilirubin Negative (Negative) Urine Urobilinogen 2.0 (<2.0) mg/dL Ur Leukocyte Esterase Small H (Negative) Urine RBC 10 H (0-5) /hpf Urine WBC 12 H (0-5) /hpf Ur Squamous Epith Cells 17 H (0-4) /hpf Urine Bacteria Rare H (None) /hpf Urine Mucus Many H (None) /hpf - Radiology Data Radiology results: image reviewed Disposition Clinical Impression: Chronic headache, Chronic abdominal pain Disposition: HOME SELF-CARE Condition: Stable Instructions (If sedation given, give patient instructions): Acute Nausea and Vomiting (ED), Abdominal Pain (ED) Additional Instructions: Please do follow-up to in the next day or 2 for recheck. Return for her, increased pain, uncontrolled vomiting, worsening or change in symptoms, weakness, or other concerns. Is patient prescribed a controlled substance at d/c from ED?: No Referrals: Isi Carolina MD [Primary Care Provider] - 1-2 days Time of Disposition: 14:57
[2021-07-26 14:31] LABS: Appearance,Urine Cloudy (Clear); Bacteria,Urine Rare /hpf; Bilirubin,Urine Negative (Negative); Blood,Urine Negative (Negative); Color,Urine Yellow; Glucose,Urine (UA) 1+ (Negative); Ketones,Urine Negative (Negative); Leukocyte Esterase,Urine Small (Negative); Mucus,Urine Many /hpf; Nitrite,Urine Negative (Negative); PH, Urine 6.5 (5.0-8.0); Protein,Urine 1+ (Negative); RBC,Urine 10 /hpf (0-5); Squamous Epithelial Cell,Urine 17 /hpf (0-4); WBC,Urine 12 /hpf (0-5)
[2021-07-26 14:42] LABS: Potassium 4.3 mmol/L (3.5-5.1)
[2021-07-26 14:43] LABS: ALT 18 U/L (4-34); AST 33 U/L (14-36); African American GFR (CKD) >90 (>60 ml/min/1.73 sqM); Albumin 3.6 g/dL (3.5-5.0); Alkaline Phosphatase 46 U/L (38-126); Amylase 48 U/L (30-110); Anion Gap 6 mmol/L; Blood Urea Nitrogen 10 mg/dL (7-17); Calcium 10.4 mg/dL (8.4-10.2); Carbon Dioxide 24 mmol/L (22-30); Chloride 106 mmol/L (98-107); Glucose 152 mg/dL (74-99); Lipase 880 U/L (23-300); Non-African American GFR(CKD) >90 (>60 ml/min/1.73 sqM); Sodium 136 mmol/L (137-145); Total Bilirubin 0.4 mg/dL (0.2-1.3); Total Protein 6.4 g/dL (6.3-8.2)
[2021-07-26 14:45] LABS: Specific Gravity,Urine >1.050 (1.001-1.035)
[2021-07-26 14:53] LABS: Basophils % (A) 0 %; Eosinophils % (A) 1 %; HCT 34.4 % (34.0-46.0); HGB 11.8 gm/dL (11.4-16.0); Lymphocytes # (A) 1.1 k/uL (1.0-4.8); Lymphocytes % (A) 24 %; MCH 32.9 pg (25.0-35.0); MCHC 34.2 g/dL (31.0-37.0); MCV 96.2 fL (80.0-100.0); Mean Platelet Volume 7.8; Monocytes # (A) 0.2 k/uL (0-1.0); Monocytes % (A) 4 %; Neutrophils % (A) 68 %; Platelet Count 255 k/uL (150-450); RBC 3.58 m/uL (3.80-5.40); RDW 14.4 % (11.5-15.5); WBC 4.5 k/uL (3.8-10.6)
[2021-07-26] MEDS ORDERED: diphenhydrAMINE 50 MG/ML 1 ML VIAL IVP STA (14:57)
[2021-07-26] MEDS ORDERED: KETOROLAC 15 MG/ML 1 ML VIAL IVP STA (14:57)
[2021-07-26 15:00] LABS: Partial Thromboplastin Time 21.9 sec (22.0-30.0); Prothrombin Time 11.1 sec (9.0-12.0)
--- NOTE | 2021-07-26 15:07 | XR ---
EXAMINATION TYPE: XR KUB DATE OF EXAM: 07/26/2021 COMPARISON: 03/26/2021 HISTORY: Abdominal pain TECHNIQUE: 2 views FINDINGS: Bowel gas PATTERN is normal. There is no sign of intestinal obstruction or pneumoperitoneum . Fecal pattern is normal. There are clips from cholecystectomy. Lung bases are clear. There are no p athologic calcifications over the kidneys. IMPRESSION: Nonacute abdomen. No adverse change.
[2021-07-26] MEDS ORDERED: ACETAMINOPHEN TAB 500 MG TAB PO STA (15:39)
[2021-07-26 16:08] VITALS: BP 113/80; PULSE 88; RESP 15; TEMP 98.3
== END 2021-07-26 16:08 | disposition home or self-care (01) ==
LOC: EC 13:02
DX: R10.9 Unspecified abdominal pain (principal); R51.9 Headache, unspecified; G89.29 Other chronic pain; Z91.030 Bee allergy status; Z88.8 Allergy status to other drugs, medicaments and biological substances; Z91.040 Latex allergy status; Z91.018 Allergy to other foods; Z91.038 Other insect allergy status; Z88.2 Allergy status to sulfonamides
CPT/HCPCS: 36415; 80053; 82150; 83690; 85025; 85610; 85730; 81001; 81025; 87086; 74018; 99284; 96374; 96375; 96361; J1200; J2765; J1885

== ENCOUNTER 2021-07-28 15:10 | Emergency (ER) | payer OTHER ==
[2021-07-28 15:31] VITALS: TEMP 98
[2021-07-28] MEDS ORDERED: SODIUM CHLORIDE 0.9% 1,000 ML IV STA (19:50)
[2021-07-28 20:18] LABS: Basophils % (A) 1 %; Eosinophils # (A) 0.1 k/uL (0-0.7); Eosinophils % (A) 1 %; HCT 38.3 % (34.0-46.0); HGB 12.7 gm/dL (11.4-16.0); Lymphocytes # (A) 2.4 k/uL (1.0-4.8); Lymphocytes % (A) 43 %; MCH 32.3 pg (25.0-35.0); MCHC 33.2 g/dL (31.0-37.0); MCV 97.1 fL (80.0-100.0); Monocytes # (A) 0.3 k/uL (0-1.0); Monocytes % (A) 5 %; Neutrophils # (A) 2.6 k/uL (1.3-7.7); Neutrophils % (A) 48 %; Platelet Count 232 k/uL (150-450); RBC 3.94 m/uL (3.80-5.40); RDW 13.9 % (11.5-15.5); WBC 5.5 k/uL (3.8-10.6)
[2021-07-28 20:32] LABS: ALT 18 U/L (4-34); AST 26 U/L (14-36); African American GFR (CKD) >90 (>60 ml/min/1.73 sqM); Albumin 4.1 g/dL (3.5-5.0); Alkaline Phosphatase 49 U/L (38-126); Anion Gap 9 mmol/L; Blood Urea Nitrogen 9 mg/dL (7-17); Calcium 10.3 mg/dL (8.4-10.2); Carbon Dioxide 23 mmol/L (22-30); Chloride 106 mmol/L (98-107); Glucose 118 mg/dL (74-99); Lipase 771 U/L (23-300); Non-African American GFR(CKD) >90 (>60 ml/min/1.73 sqM); Potassium 4.3 mmol/L (3.5-5.1); Sodium 138 mmol/L (137-145); Total Bilirubin 0.5 mg/dL (0.2-1.3); Total Protein 7.2 g/dL (6.3-8.2)
[2021-07-28] MEDS ORDERED: KETOROLAC 15 MG/ML 1 ML VIAL IVP STA (20:46)
[2021-07-28] MEDS ORDERED: ONDANSETRON 4 MG/2 ML VIAL IVP STA (20:46)
--- NOTE | 2021-07-28 20:46 | ED ---
General Adult HPI - General Chief complaint: Psychiatric Symptoms Stated complaint: Suicidal Time Seen by Provider: 07/28/21 18:11 Source: patient Mode of arrival: ambulatory Limitations: no limitations - History of Present Illness Initial comments: Esly is a 30-year-old female very well-known to this ER for her frequent visits for chronic abdominal pain. Patient presented today with complaint of persistent abdominal pain she had a workup earlier in the week. Patient also states she's had thoughts of self-harm including cutting but she hasn't done any cutting, she has been scratching herself. No significant injuries. No thoughts of suicide harming others. Patient did report to triage that she was feeling suicidal but upon my evaluation reports she is only here for the abdominal pain and thought that would help her get seen faster. - Related Data Home Medications Medication Instructions Recorded Confirmed Fenofibrate [Lofibra] 160 mg PO DAILY@2100 07/02/21 07/28/21 Midodrine HCl 5 mg PO BID PRN 07/02/21 07/28/21 hydrOXYzine pamoate [hydrOXYzine 25 mg PO TID PRN 07/02/21 07/28/21 PAMOATE] metFORMIN HCL 500 mg PO BID@0800,1700 07/02/21 07/28/21 ARIPiprazole IM SYRINGE [Abilify 400 mg IM Q30D 07/28/21 07/28/21 Maintena Syringe] Acetaminophen Tab [Tylenol Tab] 1,000 mg PO Q6HR PRN 07/28/21 07/28/21 Desvenlafaxine [Desvenlafaxine ER] 50 mg PO DAILY@0800 07/28/21 07/28/21 Dicyclomine [Bentyl] 10 mg PO TID PRN 07/28/21 07/28/21 Ondansetron Odt [Zofran Odt] 4 mg PO Q4H PRN 07/28/21 07/28/21 QUEtiapine [SEROquel] 400 mg PO HS@209907/28/21 07/28/21 busPIRone HCL 15 mg PO QID@08,12,16,21 07/28/21 07/28/21 traZODone HCL [Desyrel] 250 mg PO HS@209907/28/21 07/28/21 Allergies Allergy/AdvReac Type Severity Reaction Status Date / Time bee pollen Allergy Severe Anaphylaxis Verified 07/28/21 19:37 haloperidol [From Haldol] Allergy Severe QUIT Verified 07/28/21 19:37 BREATHING haloperidol lactate Allergy Severe QUIT Verified 07/28/21 19:37 [From Haldol] BREATHING latex Allergy Severe RASH-THROAT Verified 07/28/21 19:37 CLOSES [place] Allergy Anaphylaxis Verified 07/28/21 19:37 coconut Allergy Anaphylaxis Verified 07/28/21 19:37 pineapple Allergy Anaphylaxis Verified 07/28/21 19:37 prednisone Allergy THROAT Verified 07/28/21 19:37 SWELLS spider venom Allergy Swelling Verified 07/28/21 19:37 Sulfa (Sulfonamide Allergy THROAT Verified 07/28/21 19:37 Antibiotics) SWELLS venom-wasp Allergy Swelling Verified 07/28/21 19:37 venom-wasp protein Allergy Swelling Verified 07/28/21 19:37 promethazine HCl AdvReac Severe Nausea & Verified 07/28/21 19:37 [From Phenergan] Vomiting tramadol AdvReac Severe Nausea & Verified 07/28/21 19:37 Vomiting amoxicillin AdvReac Nausea & Verified 07/28/21 19:37 Vomiting ANTS AdvReac Mild Anaphylaxis Uncoded 07/28/21 15:31 Review of Systems ROS Statement: Those systems with pertinent positive or pertinent negative responses have been documented in the HPI. ROS Other: All systems not noted in ROS Statement are negative. Past Medical History Past Medical History: Asthma, Diabetes Mellitus, GERD/Reflux Additional Past Medical History / Comment(s): migraines, degenerative disk disease, endometriosis, lupus, pancreatitis, DM2- diet controlled History of Any Multi-Drug Resistant Organisms: None Reported Past Surgical History: Orthopedic Surgery Additional Past Surgical History / Comment(s): laparoscopc surgery for endometriosis, cyst removed from left foot, EGD, Past Anesthesia/Blood Transfusion Reactions: Previous Problems w/ Anesthesia Additional Past Anesthesia/Blood Transfusion Reaction / Comment(s): hard to wake up for 48-72 hours after laparoscopic surgery-was in hosp. for 3 days Past Psychological History: Anxiety, Depression, PTSD Smoking Status: Never smoker Past Alcohol Use History: None Reported Past Drug Use History: Marijuana - Past Family History Mother Family Medical History: No Reported History Additional Family Medical History / Comment(s): hx migraines Father Family Medical History: Coronary Artery Disease (CAD), Hypertension Additional Family Medical History / Comment(s): ddd, alcoholism & drug use General Exam - General Exam Comments Initial Comments: Physical Exam GENERAL: Patient is well-developed and well-nourished. Patient is nontoxic and well-hydrated and is in no distress. HENT: Normocephalic, Atraumatic. EYES: PERRL, EOMI PULMONARY: Unlabored respirations. CARDIOVASCULAR: RRR Warm and well perfused extremities ABDOMEN: Non-distended SKIN: No rashes or bruising : Deferred NEUROLOGIC: Alert and oriented Normal speech Normal gait MUSCULOSKELETAL: Moving all extremities with no apparent injury PSYCHIATRIC: No SI/HI Limitations: no limitations Course Vital Signs 07/28/21 07/28/21 15:28 22:45 Temperature 98 F Pulse Rate 122 H 91 Respiratory 20 18 Rate Blood Pressure 147/85 119/84 O2 Sat by Pulse 99 97 Oximetry Medical Decision Making - Medical Decision Making The patient was seen and evaluated, history is obtained from the patient, upon my evaluation patient has no acute psychiatric complaints, only complaint is her epigastric abdominal pain, labs were obtained and are at baseline, patient received antiemetics and by mouth pain medication. Patient's medically clear for discharge back to snf. - Lab Data Result diagrams: 07/28/21 20:00 07/28/21 20:00 Lab Results 07/28/21 07/28/21 07/28/21 Range/Units 20:00 20:00 20:00 WBC 5.5 (3.8-10.6) k/uL RBC 3.94 (3.80-5.40) m/uL Hgb 12.7 (11.4-16.0) gm/dL Hct 38.3 (34.0-46.0) % MCV 97.1 (80.0-100.0) fL MCH 32.3 (25.0-35.0) pg MCHC 33.2 (31.0-37.0) g/dL RDW 13.9 (11.5-15.5) % Plt Count 232 (150-450) k/uL MPV 8.0 Neutrophils % 48 % Lymphocytes % 43 % Monocytes % 5 % Eosinophils % 1 % Basophils % 1 % Neutrophils # 2.6 (1.3-7.7) k/uL Lymphocytes # 2.4 (1.0-4.8) k/uL Monocytes # 0.3 (0-1.0) k/uL Eosinophils # 0.1 (0-0.7) k/uL Basophils # 0.0 (0-0.2) k/uL Sodium 138 (137-145) mmol/L Potassium 4.3 (3.5-5.1) mmol/L Chloride 106 (98-107) mmol/L Carbon Dioxide 23 (22-30) mmol/L Anion Gap 9 mmol/L BUN 9 (7-17) mg/dL Creatinine 0.64 (0.52-1.04) mg/dL Est GFR (CKD-EPI)AfAm >90 (>60 ml/min/1.73 sqM) Est GFR (CKD-EPI)NonAf >90 (>60 ml/min/1.73 sqM) Glucose 118 H (74-99) mg/dL Calcium 10.3 H (8.4-10.2) mg/dL Total Bilirubin 0.5 (0.2-1.3) mg/dL AST 26 (14-36) U/L ALT 18 (4-34) U/L Alkaline Phosphatase 49 (38-126) U/L Total Protein 7.2 (6.3-8.2) g/dL Albumin 4.1 (3.5-5.0) g/dL Lipase 771 H (23-300) U/L Urine Color Yellow Urine Appearance Cloudy H (Clear) Urine pH 7.0 (5.0-8.0) Ur Specific [place] 1.025 (1.001-1.035) Urine Protein Trace H (Negative) Urine Glucose (UA) Negative (Negative) Urine Ketones Negative (Negative) Urine Blood Negative (Negative) Urine Nitrite Negative (Negative) Urine Bilirubin Negative (Negative) Urine Urobilinogen 2.0 (<2.0) mg/dL Ur Leukocyte Esterase Large H (Negative) Urine RBC <1 (0-5) /hpf Urine WBC 41 H (0-5) /hpf Ur Squamous Epith Cells 34 H (0-4) /hpf Calcium Oxalate Crystal Many H (None) /hpf Amorphous Sediment Rare H (None) /hpf Urine Bacteria Rare H (None) /hpf Urine Mucus Many H (None) /hpf Disposition Clinical Impression: Chronic pancreatitis, Adjustment reaction of adult life Disposition: HOME SELF-CARE Condition: Stable Is patient prescribed a controlled substance at d/c from ED?: No Referrals: Isi Carolina MD [Primary Care Provider] - 1-2 days
[2021-07-28] MEDS ORDERED: PANTOPRAZOLE 40 MG/10 ML VIAL IVP STA (20:47)
[2021-07-28 20:59] LABS: Amorphous Sediment,Urine Rare /hpf; Appearance,Urine Cloudy (Clear); Bacteria,Urine Rare /hpf; Bilirubin,Urine Negative (Negative); Blood,Urine Negative (Negative); Calcium Oxalate Crystals,Urine Many /hpf; Color,Urine Yellow; Glucose,Urine (UA) Negative (Negative); Ketones,Urine Negative (Negative); Leukocyte Esterase,Urine Large (Negative); Mucus,Urine Many /hpf; Nitrite,Urine Negative (Negative); Protein,Urine Trace (Negative); RBC,Urine <1 /hpf (0-5); Specific Gravity,Urine 1.025 (1.001-1.035); Squamous Epithelial Cell,Urine 34 /hpf (0-4); WBC,Urine 41 /hpf (0-5)
[2021-07-28 22:46] VITALS: BP 119/84; PULSE 91; RESP 18
[2021-07-28] MEDS ORDERED: Acetaminophen-Codeine 300-30mg TAB PO STA (23:04)
[2021-07-28] MEDS ORDERED: ONDANSETRON ODT 4 MG TAB PO STA (23:04)
== END 2021-07-28 23:40 | disposition home or self-care (01) ==
LOC: EC 15:10
DX: K86.1 Other chronic pancreatitis (principal); F43.22 Adjustment disorder with anxiety; J45.909 Unspecified asthma, uncomplicated; E11.9 Type 2 diabetes mellitus without complications; K21.9 Gastro-esophageal reflux disease without esophagitis; F32.A Depression, unspecified; F43.10 Post-traumatic stress disorder, unspecified; F12.90 Cannabis use, unspecified, uncomplicated; Z79.84 Long term (current) use of oral hypoglycemic drugs; Z91.040 Latex allergy status; Z88.2 Allergy status to sulfonamides; Z88.1 Allergy status to other antibiotic agents; Z91.030 Bee allergy status; Z88.0 Allergy status to penicillin; Z88.5 Allergy status to narcotic agent; G89.29 Other chronic pain
CPT/HCPCS: 99284; 96374; 96375 ×2; 96361; 36415; 80053; 83690; 85025; 81001; 87086; J2405; J1885; C9113

== ENCOUNTER 2021-07-30 16:21 | Inpatient (IN) | payer OTHER ==
[2021-07-30] MEDS ORDERED: SODIUM CHLORIDE 0.9% 500 ML 500 ML IV STA (17:12)
[2021-07-30] MEDS ORDERED: KETOROLAC 15 MG/ML 1 ML VIAL IVP STA (17:15)
[2021-07-30] MEDS ORDERED: diphenhydrAMINE 50 MG/ML 1 ML VIAL IVP STA ×2 (17:15→20:25)
[2021-07-30] MEDS ORDERED: METOCLOPRAMIDE 5 MG/ML 2 ML VIAL IVP STA (17:15)
[2021-07-30 17:44] LABS: Basophils # (A) 0.1 k/uL (0-0.2); Basophils % (A) 2 %; Eosinophils # (A) 0.1 k/uL (0-0.7); Eosinophils % (A) 1 %; HCT 37.2 % (34.0-46.0); HGB 12.5 gm/dL (11.4-16.0); Lymphocytes # (A) 1.6 k/uL (1.0-4.8); Lymphocytes % (A) 31 %; MCH 32.5 pg (25.0-35.0); MCHC 33.5 g/dL (31.0-37.0); MCV 97.1 fL (80.0-100.0); Mean Platelet Volume 7.8; Monocytes # (A) 0.2 k/uL (0-1.0); Monocytes % (A) 4 %; Neutrophils # (A) 3.1 k/uL (1.3-7.7); Neutrophils % (A) 61 %; Platelet Count 250 k/uL (150-450); RBC 3.84 m/uL (3.80-5.40); RDW 13.8 % (11.5-15.5); WBC 5.1 k/uL (3.8-10.6)
[2021-07-30 17:46] LABS: Appearance,Urine Cloudy (Clear); Bilirubin,Urine Negative (Negative); Blood,Urine Trace (Negative); Color,Urine Yellow; Glucose,Urine (UA) 3+ (Negative); Ketones,Urine Negative (Negative); Leukocyte Esterase,Urine Large (Negative); Mucus,Urine Few /hpf; Nitrite,Urine Negative (Negative); Protein,Urine Negative (Negative); RBC,Urine 14 /hpf (0-5); Specific Gravity,Urine 1.021 (1.001-1.035); Squamous Epithelial Cell,Urine 4 /hpf (0-4); Urobilinogen,Urine <2.0 mg/dL (<2.0); WBC,Urine 8 /hpf (0-5)
[2021-07-30 17:51] LABS: ALT 18 U/L (4-34); African American GFR (CKD) >90 (>60 ml/min/1.73 sqM); Amylase 58 U/L (30-110); Anion Gap 8 mmol/L; Blood Urea Nitrogen 10 mg/dL (7-17); Calcium 10.3 mg/dL (8.4-10.2); Carbon Dioxide 20 mmol/L (22-30); Chloride 108 mmol/L (98-107); Glucose 201 mg/dL (74-99); Lipase 912 U/L (23-300); Non-African American GFR(CKD) >90 (>60 ml/min/1.73 sqM); Sodium 136 mmol/L (137-145); Total Bilirubin 0.7 mg/dL (0.2-1.3)
[2021-07-30 17:57] LABS: Total Protein 7.3 g/dL (6.3-8.2)
[2021-07-30 17:58] LABS: AST 36 U/L (14-36); Alkaline Phosphatase 49 U/L (38-126); Potassium 5.5 mmol/L (3.5-5.1)
--- NOTE | 2021-07-30 18:18 | ED ---
General Adult HPI - General Chief complaint: Abdominal Pain Stated complaint: abd pain, nausea Time Seen by Provider: 07/30/21 16:37 Source: patient Mode of arrival: ambulatory Limitations: no limitations - History of Present Illness Initial comments: This 30-year-old female who is well-known to the emergency department with a past medical history of migraines and chronic pancreatitis presents to the emergency department for abdominal pain, nausea and vomiting that began this morning. Patient states she has had these symptoms in her past and states they're similar to her feelings of pancreatitis. Patient states in the middle the night last night she was nauseous and did have an episode of vomiting. Patient states this morning after eating soup she felt nauseous again and threw up shortly after. Patient states since this morning she has also been experiencing abdominal pain that feels similar to a pancreatic flareup. Patient states the pain is exacerbated by movement. Patient states she did take Tylenol which did minimally relieved the pain. Patient denies alcohol use, marijuana use or any other illicit drugs. Patient states she believes she did have a fever earlier this morning as she had some chills and felt cold. Patient has been seen and evaluated for this issue recently in the emergency department and has received laboratory workups along with CT scans. Patient denies any chest pain, shortness of breath, change in bowel or bladder, lightheadedness, dizziness, headache, change in vision, hematochezia, hemoptysis, cough, nasal congestion, sore throat, weakness. Patient's guardian did request no narcotics to be given to patient. Patient currently resides at [facility]. - Related Data Home Medications Medication Instructions Recorded Confirmed Fenofibrate [Lofibra] 160 mg PO DAILY@2100 07/02/21 07/28/21 Midodrine HCl 5 mg PO BID PRN 07/02/21 07/28/21 hydrOXYzine pamoate [hydrOXYzine 25 mg PO TID PRN 07/02/21 07/28/21 PAMOATE] metFORMIN HCL 500 mg PO BID@0800,1700 07/02/21 07/28/21 ARIPiprazole IM SYRINGE [Abilify 400 mg IM Q30D 07/28/21 07/28/21 Maintena Syringe] Acetaminophen Tab [Tylenol Tab] 1,000 mg PO Q6HR PRN 07/28/21 07/28/21 Desvenlafaxine [Desvenlafaxine ER] 50 mg PO DAILY@0800 07/28/21 07/28/21 Dicyclomine [Bentyl] 10 mg PO TID PRN 07/28/21 07/28/21 Ondansetron Odt [Zofran Odt] 4 mg PO Q4H PRN 07/28/21 07/28/21 QUEtiapine [SEROquel] 400 mg PO HS@2100 07/28/21 07/28/21 busPIRone HCL 15 mg PO QID@08,12,16,21 07/28/21 07/28/21 traZODone HCL [Desyrel] 250 mg PO HS@2100 07/28/21 07/28/21 Allergies Allergy/AdvReac Type Severity Reaction Status Date / Time bee pollen Allergy Severe Anaphylaxis Verified 07/30/21 16:27 haloperidol [From Haldol] Allergy Severe QUIT Verified 07/30/21 16:27 BREATHING haloperidol lactate Allergy Severe QUIT Verified 07/30/21 16:27 [From Haldol] BREATHING latex Allergy Severe RASH-THROAT Verified 07/30/21 16:27 CLOSES [place] Allergy Anaphylaxis Verified 07/30/21 16:27 coconut Allergy Anaphylaxis Verified 07/30/21 16:27 pineapple Allergy Anaphylaxis Verified 07/30/21 16:27 prednisone Allergy THROAT Verified 07/30/21 16:27 SWELLS spider venom Allergy Swelling Verified 07/30/21 16:27 Sulfa (Sulfonamide Allergy THROAT Verified 07/30/21 16:27 Antibiotics) SWELLS venom-wasp Allergy Swelling Verified 07/30/21 16:27 venom-wasp protein Allergy Swelling Verified 07/30/21 16:27 promethazine HCl AdvReac Severe Nausea & Verified 07/30/21 16:27 [From Phenergan] Vomiting tramadol AdvReac Severe Nausea & Verified 07/30/21 16:27 Vomiting amoxicillin AdvReac Nausea & Verified 07/30/21 16:27 Vomiting ANTS AdvReac Mild Anaphylaxis Uncoded 07/30/21 16:27 Review of Systems ROS Statement: Those systems with pertinent positive or pertinent negative responses have been documented in the HPI. ROS Other: All systems not noted in ROS Statement are negative. Past Medical History Past Medical History: Asthma, Diabetes Mellitus, GERD/Reflux Additional Past Medical History / Comment(s): migraines, degenerative disk disease, endometriosis, lupus, pancreatitis, DM2- diet controlled History of Any Multi-Drug Resistant Organisms: None Reported Past Surgical History: Orthopedic Surgery Additional Past Surgical History / Comment(s): laparoscopc surgery for endometriosis, cyst removed from left foot, EGD, Past Anesthesia/Blood Transfusion Reactions: Previous Problems w/ Anesthesia Additional Past Anesthesia/Blood Transfusion Reaction / Comment(s): hard to wake up for 48-72 hours after laparoscopic surgery-was in hosp. for 3 days Past Psychological History: Anxiety, Depression, PTSD Smoking Status: Never smoker Past Alcohol Use History: None Reported Past Drug Use History: Marijuana - Past Family History Mother Family Medical History: No Reported History Additional Family Medical History / Comment(s): hx migraines Father Family Medical History: Coronary Artery Disease (CAD), Hypertension Additional Family Medical History / Comment(s): ddd, alcoholism & drug use General Exam Limitations: no limitations General appearance: alert, in no apparent distress Head exam: Present: atraumatic, normocephalic, normal inspection Eye exam: Present: normal appearance, PERRL, EOMI. Absent: scleral icterus, conjunctival injection, periorbital swelling Pupils: Present: normal accommodation ENT exam: Present: normal exam, normal oropharynx, mucous membranes moist Neck exam: Present: normal inspection. Absent: tenderness, meningismus, lymphadenopathy Respiratory exam: Present: normal lung sounds bilaterally. Absent: respiratory distress, wheezes, rales, rhonchi, stridor Cardiovascular Exam: Present: regular rate, normal rhythm, normal heart sounds. Absent: systolic murmur, diastolic murmur, rubs, gallop, clicks GI/Abdominal exam: Present: soft, tenderness (Generalized abdominal discomfort to palpation in all quadrants, worse in right upper quadrant/mid-upper epigastric which patient states is where her pancreatic pain usually is at.), normal bowel sounds. Absent: distended, guarding, rebound, rigid Extremities exam: Present: normal inspection, full ROM, normal capillary refill. Absent: tenderness, pedal edema, joint swelling, calf tenderness Back exam: Present: normal inspection. Absent: full ROM, CVA tenderness (R), CVA tenderness (L), paraspinal tenderness, vertebral tenderness Neurological exam: Present: alert, oriented X3, CN II-XII intact Psychiatric exam: Present: normal affect, normal mood Skin exam: Present: warm, dry, intact, normal color. Absent: rash Course Vital Signs 07/30/21 07/30/21 16:24 18:34 Temperature 97.8 F 98.3 F Pulse Rate 130 H 104 H Respiratory 18 18 Rate Blood Pressure 123/77 135/103 O2 Sat by Pulse 97 99 Oximetry EKG Findings - EKG Comments: EKG Findings:: EKG impression: Ventricular rate 74 bpm. OR interval 148. QRS duration 80. QT/QTC 384/411 Medical Decision Making - Medical Decision Making This 30-year-old female with past medical history of chronic migraines and chronic pancreatitis presents emergency Department with worsening abdominal whitney n, nausea, vomiting today. Patient with acute on chronic pancreatitis. Patient without leukocytosis, lipase 912 which is increased from 771 on 07/28/21. Patient's urine with 3+ glucose, trace blood, large leukocyte esterase, 14 red blood cells, 8 white blood cells; urine hCG nondetected. I did speak with Ciaran from [place] emergency department along with who agreed to admit patient to their service as long as patient was cleared for narcotics/pain medication. I did call [facility] and speak to patient's guardian, Willa who stated it was okay to give patient narcotics for pain control as long as patient was going to be admitted. Patient admitted NPO with pain control, fluids and GI consult. Patient verbally agreed to plan for further workup, evaluation and treatment. Case discussed in detail with my attending, . - Lab Data Result diagrams: 07/30/21 17:35 07/30/21 18:30 Lab Results 07/30/21 07/30/21 07/30/21 Range/Units 17:35 17:35 17:35 WBC 5.1 (3.8-10.6) k/uL RBC 3.84 (3.80-5.40) m/uL Hgb 12.5 (11.4-16.0) gm/dL Hct 37.2 (34.0-46.0) % MCV 97.1 (80.0-100.0) fL MCH 32.5 (25.0-35.0) pg MCHC 33.5 (31.0-37.0) g/dL RDW 13.8 (11.5-15.5) % Plt Count 250 (150-450) k/uL MPV 7.8 Neutrophils % 61 % Lymphocytes % 31 % Monocytes % 4 % Eosinophils % 1 % Basophils % 2 % Neutrophils # 3.1 (1.3-7.7) k/uL Lymphocytes # 1.6 (1.0-4.8) k/uL Monocytes # 0.2 (0-1.0) k/uL Eosinophils # 0.1 (0-0.7) k/uL Basophils # 0.1 (0-0.2) k/uL Sodium 136 L (137-145) mmol/L Potassium 5.5 H (3.5-5.1) mmol/L Chloride 108 H (98-107) mmol/L Carbon Dioxide 20 L (22-30) mmol/L Anion Gap 8 mmol/L BUN 10 (7-17) mg/dL Creatinine 0.67 (0.52-1.04) mg/dL Est GFR (CKD-EPI)AfAm >90 (>60 ml/min/1.73 sqM) Est GFR (CKD-EPI)NonAf >90 (>60 ml/min/1.73 sqM) Glucose 201 H (74-99) mg/dL Plasma Lactic Acid Aurelio (0.7-2.0) mmol/L Calcium 10.3 H (8.4-10.2) mg/dL Total Bilirubin 0.7 (0.2-1.3) mg/dL AST 36 (14-36) U/L ALT 18 (4-34) U/L Alkaline Phosphatase 49 (38-126) U/L Total Protein 7.3 (6.3-8.2) g/dL Albumin 4.0 (3.5-5.0) g/dL Amylase 58 (30-110) U/L Lipase 912 H (23-300) U/L Urine Color Yellow Urine Appearance Cloudy H (Clear) Urine pH 6.0 (5.0-8.0) Ur Specific [place] 1.021 (1.001-1.035) Urine Protein Negative (Negative) Urine Glucose (UA) 3+ H (Negative) Urine Ketones Negative (Negative) Urine Blood Trace H (Negative) Urine Nitrite Negative (Negative) Urine Bilirubin Negative (Negative) Urine Urobilinogen <2.0 (<2.0) mg/dL Ur Leukocyte Esterase Large H (Negative) Urine RBC 14 H (0-5) /hpf Urine WBC 8 H (0-5) /hpf Ur Squamous Epith Cells 4 (0-4) /hpf Urine Mucus Few H (None) /hpf Urine HCG, Qual (Not Detectd) 07/30/21 07/30/21 07/30/21 Range/Units 17:35 18:30 18:30 WBC (3.8-10.6) k/uL RBC (3.80-5.40) m/uL Hgb (11.4-16.0) gm/dL Hct (34.0-46.0) % MCV (80.0-100.0) fL MCH (25.0-35.0) pg MCHC (31.0-37.0) g/dL RDW (11.5-15.5) % Plt Count (150-450) k/uL MPV Neutrophils % % Lymphocytes % % Monocytes % % Eosinophils % % Basophils % % Neutrophils # (1.3-7.7) k/uL Lymphocytes # (1.0-4.8) k/uL Monocytes # (0-1.0) k/uL Eosinophils # (0-0.7) k/uL Basophils # (0-0.2) k/uL Sodium (137-145) mmol/L Potassium 4.1 (3.5-5.1) mmol/L Chloride (98-107) mmol/L Carbon Dioxide (22-30) mmol/L Anion Gap mmol/L BUN (7-17) mg/dL Creatinine (0.52-1.04) mg/dL Est GFR (CKD-EPI)AfAm (>60 ml/min/1.73 sqM) Est GFR (CKD-EPI)NonAf (>60 ml/min/1.73 sqM) Glucose (74-99) mg/dL Plasma Lactic Acid Aurelio 1.4 (0.7-2.0) mmol/L Calcium (8.4-10.2) mg/dL Total Bilirubin (0.2-1.3) mg/dL AST (14-36) U/L ALT (4-34) U/L Alkaline Phosphatase (38-126) U/L Total Protein (6.3-8.2) g/dL Albumin (3.5-5.0) g/dL Amylase (30-110) U/L Lipase (23-300) U/L Urine Color Urine Appearance (Clear) Urine pH (5.0-8.0) Ur Specific [place] (1.001-1.035) Urine Protein (Negative) Urine Glucose (UA) (Negative) Urine Ketones (Negative) Urine Blood (Negative) Urine Nitrite (Negative) Urine Bilirubin (Negative) Urine Urobilinogen (<2.0) mg/dL Ur Leukocyte Esterase (Negative) Urine RBC (0-5) /hpf Urine WBC (0-5) /hpf Ur Squamous Epith Cells (0-4) /hpf Urine Mucus (None) /hpf Urine HCG, Qual Not Detected (Not Detectd) Disposition Clinical Impression: Acute on chronic pancreatitis, Abdominal pain, Nausea and vomiting Disposition: ADMITTED IP TO THIS [facility] Condition: Serious Referrals: Isi Carolina MD [Primary Care Provider] - 1-2 days Time of Disposition: 19:35
[2021-07-30] MEDS ORDERED: ACETAMINOPHEN TAB 325 MG TAB PO STA (18:42)
[2021-07-30] MEDS ORDERED: ONDANSETRON 4 MG/2 ML VIAL IVP STA (18:42)
[2021-07-30] MEDS ORDERED: NALOXONE 0.4 MG/ML 1 ML VIAL IV PRN (19:22)
[2021-07-30] MEDS ORDERED: MORPHINE SULFATE 2 MG/ML SYRINGE IVP PRN (19:29)
[2021-07-30] MEDS ORDERED: SODIUM CHLORIDE 0.9% 1,000 ML IV SCH (19:30)
[2021-07-30] MEDS ORDERED: HYDROmorphone 0.5 MG/0.5 ML SYRINGE IVP PRN (20:24)
[2021-07-30] MEDS ORDERED: ACETAMINOPHEN TAB 500 MG TAB PO PRN (21:18)
[2021-07-30] MEDS ORDERED: LACTATED RINGERS 1,000 ML IV ONE (21:20)
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
[2021-07-30] MEDS: HYDROmorphone 0.5 MG/0.5 ML SYRINGE IVP PRN (23:52)
[2021-07-31] MEDS ORDERED: ACETAMINOPHEN TAB 325 MG TAB PO SCH
[2021-07-31] MEDS: MUPIROCIN 2% OINT 22 GM TUBE TOPICAL SCH ×4 (01:53→20:14)
[2021-07-31] MEDS: HEPARIN SODIUM,PORCINE/PF 5,000 UNIT/0.5 ML SYRINGE SQ SCH ×4 (01:54→21:04)
[2021-07-31 02:02] LABS: Glucose,Whole Blood 114 mg/dL (75-99)
[2021-07-31] MEDS: INSULIN ASPART (NovoLOG) 100 UNIT/ML VIAL SQ SCH ×5 (02:03→20:31)
[2021-07-31] MEDS: diphenhydrAMINE 50 MG/ML 1 ML VIAL IVP PRN ×4 (02:41→21:05)
[2021-07-31] MEDS: HYDROmorphone 0.5 MG/0.5 ML SYRINGE IVP PRN ×7 (02:42→21:05)
[2021-07-31] MEDS: ONDANSETRON 4 MG/2 ML VIAL IVP PRN ×3 (02:42→20:14)
[2021-07-31 05:58] LABS: Glucose,Whole Blood 115 mg/dL (75-99)
[2021-07-31] MEDS: SODIUM CHLORIDE 0.9% 1,000 ML IV SCH ×3 (08:39→21:07)
[2021-07-31] MEDS: IPRATROPIUM-ALBUTEROL 3 ML NEB INHALATION PRN (08:43)
[2021-07-31 09:35] LABS: Basophils # (A) 0.02 X 10*3/uL (0.00-0.10); Basophils % (A) 0.4 %; Eosinophils # (A) 0.08 X 10*3/uL (0.04-0.35); Eosinophils % (A) 1.6 %; HCT 32.1 % (37.2-46.3); HGB 10.6 g/dL (12.0-15.0); Immature Grans, Automated 0.2 %; Lymphocytes # (A) 2.69 X 10*3/uL (0.90-5.00); Lymphocytes % (A) 53.7 %; MCH 32.3 pg (27.0-32.0); MCV 97.9 fL (80.0-97.0); Mean Platelet Volume 10.6 fL (9.5-12.2); Monocytes # (A) 0.31 X 10*3/uL (0.20-1.00); Monocytes % (A) 6.2 %; NRBC Per 100 WBC 0 /100 WBCS (0.0-0.0); Neutrophils % (A) 37.9 %; Platelet Count 215 X 10*3/uL (140-440); RBC 3.28 X 10*6/uL (4.10-5.20); RDW 13.6 % (11.5-14.5); WBC 5.01 X 10*3/uL (4.50-10.00)
--- NOTE | 2021-07-31 09:51 | US ---
EXAMINATION TYPE: US abdomen complete DATE OF EXAM: 07/31/2021 COMPARISON: 05/16/2021 CLINICAL HISTORY: abdominal pain. Pancreatitis gallbladder removed 3 weeks ago. EXAM MEASUREMENTS: Liver Length: 15.3 cm Gallbladder Wall: Surgically absent cm CBD: .3 cm Spleen: 8.6 cm Right Kidney: 9.8 x 4.8 x 4.2 cm Left Kidney: 10.7 x 5.2 x 3.7 cm Pancreas: Not seen with certainty Liver: wnl Gallbladder: wnl CBD: wnl Spleen: wnl Right Kidney: wnl Left Kidney: wnl Upper IVC: wnl Abd Aorta: wnl IMPRESSION: No definite acute process by ultrasound.
[2021-07-31] MEDS: polyethylene glycoL 3350 17 GM POWD.PACK PO SCH (09:56)
[2021-07-31] MEDS: PANTOPRAZOLE 40 MG TABLET PO SCH (09:57)
[2021-07-31] MEDS: DESVENLAFAXINE SUCCINATE 50 MG TAB.ER.24H PO SCH (09:57)
[2021-07-31] MEDS: busPIRone HCl 5 MG TAB PO SCH ×4 (09:57→20:13)
[2021-07-31 10:34] LABS: African American GFR (CKD) 142.8 (60.0-200.0); Albumin 3.6 g/dL (3.8-4.9); Albumin/Globulin Ratio 1.8 (1.60-3.17); Anion Gap 9.4 mmol/L (10.00-18.00); BUN/Creat Ratio 12.17 Ratio (12.00-20.00); Blood Urea Nitrogen 7.3 mg/dL (9.0-27.0); Calcium 9.4 mg/dL (8.7-10.3); Carbon Dioxide 21.6 mmol/L (20.0-27.5); Non-African American GFR(CKD) 123.2 (60.0-200.0); Potassium 3.9 mmol/L (3.5-5.5); Total Bilirubin 0.3 mg/dL (0.30-1.20); Total Protein 5.6 g/dL (6.2-8.2)
[2021-07-31 12:14] LABS: Glucose,Whole Blood 151 mg/dL (75-99)
--- NOTE | 2021-07-31 14:57 | P.CONS ---
History of Present Illness - Reason for Consult Consult date: 07/31/21 Pancreatitis Requesting physician: Omid Smiley - Chief Complaint Abdominal pain - History of Present Illness 30-year-old female with a history of multiple episodes of pancreatitis. Had been unknown etiology. Patient most recently went to [facility] for abdominal pain approximately 3 weeks ago and underwent cholecystectomy. At that time she was told that the gallbladder had sludge. She was recommended to have further follow-up with an endoscopic ultrasound. Patient has not had follow-up yet due to transportation issues. 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 She her mom does have a history of pancreatitis as well. She believes that she's had 5-6 episodes of pancreatitis between January and now. States abdominal pain started about 1 week ago with episodes of nausea and vomiting. Patient currently denies any nausea or vomiting. Still has abdominal pain mostly in the epigastric region. No fevers or chills. WBC 5.0 hemoglobin 10.6 hematocrit 32 platelet count 215,000 sodium 140 potassium 3. 9 PM when 7.3 creatinine 0.6 total bilirubin 0.3 AST 20 ALT 15 alkaline phosphatase 37 lipase on admission 912 Review of Systems REVIEW OF SYSTEMS: CARDIOPULMONARY: No chest pain or shortness of breath. Gastrointestinal: Abdominal pain in the epigastric and right upper quadrant radiating to her back. Nausea with vomiting over the last 5 days duration, none currently. No hematemesis, coffee-ground emesis. No rectal bleeding, or melena. GENITOURINARY: No dysuria or hematuria. MUSCULOSKELETAL: Reports normal range of motion., Joint pain. SKIN: No rashes. No jaundice. ENDOCRINE: No chills, fevers. No excessive weight gain or loss. No polydipsia or polyuria. PSYCHIATRIC: Unremarkable. NEUROLOGY: No change in mental status. Denies dizziness, headache. ENT: Vision unremarkable. CONSTITUTIONAL: No recent weight loss. No fever, chills, night sweats. Past Medical History Past Medical History: Asthma, Diabetes Mellitus, GERD/Reflux Additional Past Medical History / Comment(s): migraines, degenerative disk disease, endometriosis, lupus, pancreatitis, DM2- diet controlled History of Any Multi-Drug Resistant Organisms: None Reported Past Surgical History: Orthopedic Surgery Additional Past Surgical History / Comment(s): laparoscopc surgery for endometriosis, cyst removed from left foot, EGD, Past Anesthesia/Blood Transfusion Reactions: Previous Problems w/ Anesthesia Additional Past Anesthesia/Blood Transfusion Reaction / Comm: hard to wake up for 48-72 hours after laparoscopic surgery-was in hosp. for 3 days Past Psychological History: Anxiety, Depression, PTSD Smoking Status: Never smoker Past Alcohol Use History: None Reported Past Drug Use History: Marijuana - Past Family History Mother Family Medical History: No Reported History Additional Family Medical History / Comment(s): hx migraines Father Family Medical History: Coronary Artery Disease (CAD), Hypertension Additional Family Medical History / Comment(s): ddd, alcoholism & drug use Medications and Allergies Home Medications Medication Instructions Recorded Confirmed Type Fenofibrate [Lofibra] 160 mg PO DAILY@2100 07/02/21 07/30/21 History Midodrine HCl 5 mg PO BID PRN 07/02/21 07/30/21 History hydrOXYzine pamoate [hydrOXYzine 25 mg PO TID PRN 07/02/21 07/30/21 History PAMOATE] metFORMIN HCL 500 mg PO BID@0800,1700 07/02/21 07/30/21 History ARIPiprazole IM SYRINGE [Abilify 400 mg IM Q30D 07/28/21 07/30/21 History Maintena Syringe] Acetaminophen Tab [Tylenol Tab] 1,000 mg PO Q6HR PRN 07/28/21 07/30/21 History Desvenlafaxine [Desvenlafaxine ER] 50 mg PO DAILY@0800 07/28/21 07/30/21 History Dicyclomine [Bentyl] 10 mg PO TID PRN 07/28/21 07/30/21 History Ondansetron Odt [Zofran Odt] 4 mg PO Q4H PRN 07/28/21 07/30/21 History QUEtiapine [SEROquel] 400 mg PO HS@2100 07/28/21 07/30/21 History busPIRone HCL 15 mg PO QID@08,12,16,21 07/28/21 07/30/21 History traZODone HCL [Desyrel] 250 mg PO HS@2100 07/28/21 07/30/21 History Allergies Allergy/AdvReac Type Severity Reaction Status Date / Time bee pollen Allergy Severe Anaphylaxis Verified 07/30/21 19:56 haloperidol [From Haldol] Allergy Severe QUIT Verified 07/30/21 19:56 BREATHING haloperidol lactate Allergy Severe QUIT Verified 07/30/21 19:56 [From Haldol] BREATHING latex Allergy Severe RASH-THROAT Verified 07/30/21 19:56 CLOSES [place] Allergy Anaphylaxis Verified 07/30/21 19:56 coconut Allergy Anaphylaxis Verified 07/30/21 19:56 morphine Allergy Rash/Hives Verified 07/30/21 20:53 pineapple Allergy Anaphylaxis Verified 07/30/21 19:56 prednisone Allergy THROAT Verified 07/30/21 19:56 SWELLS spider venom Allergy Swelling Verified 07/30/21 19:56 Sulfa (Sulfonamide Allergy THROAT Verified 07/30/21 19:56 Antibiotics) SWELLS venom-wasp Allergy Swelling Verified 07/30/21 19:56 venom-wasp protein Allergy Swelling Verified 07/30/21 19:56 promethazine HCl AdvReac Severe Nausea & Verified 07/30/21 19:56 [From Phenergan] Vomiting tramadol AdvReac Severe Nausea & Verified 07/30/21 19:56 Vomiting amoxicillin AdvReac Nausea & Verified 07/30/21 19:56 Vomiting ANTS AdvReac Mild Anaphylaxis Uncoded 07/30/21 16:27 Physical Exam Vitals: Vital Signs Temp Pulse Pulse Resp BP BP Pulse Ox 07/31/21 07:00 98.0 F 77 18 102/68 97 07/31/21 02:13 98.1 F 84 16 127/82 99 07/31/21 01:52 102 H 18 128/88 99 07/30/21 22:46 101 H 18 128/97 99 07/30/21 20:04 98 18 131/95 98 07/30/21 18:34 98.3 F 104 H 18 135/103 99 07/30/21 16:24 97.8 F 130 H 18 123/77 97 Intake and Output 07/30/21 07/31/21 07/31/21 22:59 06:59 14:59 Other: # Voids 1 Weight 81.647 kg General appearance: The patient is alert, oriented, appears in no acute distress. HET: Head is normocephalic and atraumatic. Conjunctiva pink. Sclera anicteric. Neck: Supple without lymphadenopathy. Trachea midline. Heart: S1 S2. Regular rate and rhythm. Lungs: Clear to auscultation. Abdomen: Soft, epigastric tenderness, nondistended with bowel sounds. No guarding or rigidity. Skin: No rashes. No jaundice. Extremities: Normal skin color and turgor. No pedal edema. Neurological: No focal deficits. Alert and oriented x3. Results CBC & Chem 7: 07/31/21 06:31 07/31/21 06:31 Labs: Abnormal Lab Results - Last 24 Hours (Table) 07/30/21 07/30/21 07/31/21 Range/Units 17:35 17:35 02:01 Sodium 136 L (137-145) mmol/L Potassium 5.5 H (3.5-5.1) mmol/L Chloride 108 H (98-107) mmol/L Carbon Dioxide 20 L (22-30) mmol/L Glucose 201 H (74-99) mg/dL POC Glucose (mg/dL) 114 H (75-99) mg/dL Calcium 10.3 H (8.4-10.2) mg/dL Lipase 912 H (23-300) U/L Urine Appearance Cloudy H (Clear) Urine Glucose (UA) 3+ H (Negative) Urine Blood Trace H (Negative) Ur Leukocyte Esterase Large H (Negative) Urine RBC 14 H (0-5) /hpf Urine WBC 8 H (0-5) /hpf Urine Mucus Few H (None) /hpf 07/31/21 Range/Units 05:56 Sodium (137-145) mmol/L Potassium (3.5-5.1) mmol/L Chloride (98-107) mmol/L Carbon Dioxide (22-30) mmol/L Glucose (74-99) mg/dL POC Glucose (mg/dL) 115 H (75-99) mg/dL Calcium (8.4-10.2) mg/dL Lipase (23-300) U/L Urine Appearance (Clear) Urine Glucose (UA) (Negative) Urine Blood (Negative) Ur Leukocyte Esterase (Negative) Urine RBC (0-5) /hpf Urine WBC (0-5) /hpf Urine Mucus (None) /hpf Comments: Abdominal ultrasound no definite acute process by ultrasound. CBD 0.3 cm Assessment and Plan (1) Acute on chronic pancreatitis Narrative/Plan: 30-year-old female with a history of multiple episodes of pancreatitis. Had been unknown etiology. Patient most recently went to [facility] for abdominal pain approximately 3 weeks ago and underwent cholecystectomy. At that time she was told that the gallbladder had sludge. She was recommended to have further follow-up with an endoscopic ultrasound. Patient has not had follow-up yet due to transportation issues. 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 She her mom does have a history of pancreatitis as well. She believes that she's had 5-6 episodes of pancreatitis between January and now. States abdominal pain started about 1 week ago with episodes of nausea and vomiting. Possible etiologies are autoimmune pancreatitis which is currently being worked up with [facility]. Recommend IV hydration, pain medication and follow-up with [facility]. Current Visit: Yes Status: Acute Code(s): K85.90 - ACUTE PANCREATITIS WITHOUT NECROSIS OR INFECTION, UNSP; K86.1 - OTHER CHRONIC PANCREATITIS SNOMED Code(s): 689989565 Plan: 1. Continue symptomatic and supportive care 2. Abdominal ultrasound ordered 3. Repeat lipase 4. IV hydration 5. Clear liquid diet 6. Antiemetics as needed Anticipate discharge within the next 24-48 hours. Thank you for this consultation, we will continue to follow. Dr. Aldo Bocanegra I agree with the dictator's note, documented as a scribe by Roxana Torres.
[2021-07-31 16:59] LABS: Glucose,Whole Blood 93 mg/dL (75-99)
--- NOTE | 2021-07-31 18:30 | P.PN ---
Subjective Progress Note Date: 07/31/21 Hospital course: Patient is a 30-year-old female with a past medical history of recurrent episodes of acute on chronic pancreatitis of unknown etiology. She presented to the emergency department with a chief complaint of right upper quadrant pain and epigastric pain radiating into her back. Patient reports this pain began approximately one week ago and progressively worsened and became associated with nausea and vomiting so she came to the emergency department for further evalua tion. Patient reports she is status post laparoscopic cholecystectomy [address] [facility]. Patient was found to have elevated lipase of 912 and admitted under our services with consultation to GI. Physical exam: Vital signs reviewed and stable. General: Nontoxic, no distress and appears stated age. Derm: Skin warm and dry, normal coloration for ethnicity. Head: Atraumatic, normocephalic and symmetric. Eyes: EOMs intact, no lid lag, and anicteric sclera Mouth: no lip lesions, mucus membranes moist Cardiovascular: regular rate and rhythm with normal S1S2, no murmur, positive po sterior tibial pulses bilaterally, and cap refill < 2 seconds. Lungs: Respirations even, regular, and unlabored on room air. Lungs CTA bilaterally, no rhonchi, no rales, no wheezing, and no accessory muscle usage. Abdominal: soft, nontender to palpation, no guarding, no appreciable organomegaly Ext: ROM intact. No gross muscle atrophy, no edema, no contractures Neuro: Speech clear, face symmetrical and CN II-XII grossly intact with no noted focal neuro deficits Psych: Alert and oriented to person, place, time, and situation. Appropriate and pleasant affect. Assessment and Plan of Care: Acute on chronic recurrent pancreatitis Status post recent cholecystectomy, 3 weeks ago -Pain control with opiates -IV fluid hydration aggressive with lactated Ringer -Zofran for symptomatic control of nausea vomiting -GI following, appreciate further recommendations -Clear liquid diet Diabetes mellitus -Glycemic protocol with NovoLog sliding scale Intermittent asthma -DuoNeb's when necessary Small cystic swelling over surgical wound possible infection -Mupirocin topical CODE STATUS: Full code DVT prophylaxis: Heparin Discussed with: Patient, RN, and GI team Anticipated discharge date: Tomorrow morning Anticipated discharge place: Home A total of 39 minutes was spent on the care of this complex patient more than 50% of the time was spent in counseling and care coordination. Objective - Vital Signs Vital signs: Vital Signs Temp 98.0 F 07/31/21 07:00 Pulse 64 07/31/21 08:53 Resp 18 07/31/21 08:00 BP 102/68 07/31/21 07:00 Pulse Ox 97 07/31/21 07:00 Intake & Output 07/30/21 07/31/21 07/31/21 18:59 06:59 18:59 Intake Total 240 Balance 240 Weight 81.647 kg 81.647 kg Intake: Oral 240 Other: Voiding Method Toilet # Voids 1 - Labs CBC & Chem 7: 07/31/21 06:31 07/31/21 06:31 Labs: Abnormal Lab Results - Last 24 Hours (Table) 07/30/21 07/30/21 07/31/21 Range/Units 17:35 17:35 02:01 RBC (4.10-5.20) X 10*6/uL Hgb (12.0-15.0) g/dL Hct (37.2-46.3) % MCV (80.0-97.0) fL MCH (27.0-32.0) pg Sodium 136 L (137-145) mmol/L Potassium 5.5 H (3.5-5.1) mmol/L Chloride 108 H (98-107) mmol/L Carbon Dioxide 20 L (22-30) mmol/L Anion Gap (10.00-18.00) mmol/L BUN (9.0-27.0) mg/dL Glucose 201 H (74-99) mg/dL POC Glucose (mg/dL) 114 H (75-99) mg/dL Calcium 10.3 H (8.4-10.2) mg/dL Alkaline Phosphatase (41-126) U/L Total Protein (6.2-8.2) g/dL Albumin (3.8-4.9) g/dL Lipase 912 H (23-300) U/L Urine Appearance Cloudy H (Clear) Urine Glucose (UA) 3+ H (Negative) Urine Blood Trace H (Negative) Ur Leukocyte Esterase Large H (Negative) Urine RBC 14 H (0-5) /hpf Urine WBC 8 H (0-5) /hpf Urine Mucus Few H (None) /hpf 07/31/21 07/31/21 07/31/21 Range/Units 05:56 06:31 06:31 RBC 3.28 L (4.10-5.20) X 10*6/uL Hgb 10.6 L (12.0-15.0) g/dL Hct 32.1 L (37.2-46.3) % MCV 97.9 H (80.0-97.0) fL MCH 32.3 H (27.0-32.0) pg Sodium (137-145) mmol/L Potassium (3.5-5.1) mmol/L Chloride (98-107) mmol/L Carbon Dioxide (22-30) mmol/L Anion Gap 9.40 L (10.00-18.00) mmol/L BUN 7.3 L (9.0-27.0) mg/dL Glucose (74-99) mg/dL POC Glucose (mg/dL) 115 H (75-99) mg/dL Calcium (8.4-10.2) mg/dL Alkaline Phosphatase 37 L (41-126) U/L Total Protein 5.6 L (6.2-8.2) g/dL Albumin 3.6 L (3.8-4.9) g/dL Lipase (23-300) U/L Urine Appearance (Clear) Urine Glucose (UA) (Negative) Urine Blood (Negative) Ur Leukocyte Esterase (Negative) Urine RBC (0-5) /hpf Urine WBC (0-5) /hpf Urine Mucus (None) /hpf 07/31/21 Range/Units 12:12 RBC (4.10-5.20) X 10*6/uL Hgb (12.0-15.0) g/dL Hct (37.2-46.3) % MCV (80.0-97.0) fL MCH (27.0-32.0) pg Sodium (137-145) mmol/L Potassium (3.5-5.1) mmol/L Chloride (98-107) mmol/L Carbon Dioxide (22-30) mmol/L Anion Gap (10.00-18.00) mmol/L BUN (9.0-27.0) mg/dL Glucose (74-99) mg/dL POC Glucose (mg/dL) 151 H (75-99) mg/dL Calcium (8.4-10.2) mg/dL Alkaline Phosphatase (41-126) U/L Total Protein (6.2-8.2) g/dL Albumin (3.8-4.9) g/dL Lipase (23-300) U/L Urine Appearance (Clear) Urine Glucose (UA) (Negative) Urine Blood (Negative) Ur Leukocyte Esterase (Negative) Urine RBC (0-5) /hpf Urine WBC (0-5) /hpf Urine Mucus (None) /hpf
[2021-07-31] MEDS: traZODone HCL 100 MG TAB PO SCH (20:13)
[2021-07-31] MEDS: QUEtiapine 400 MG TAB PO SCH (20:14)
[2021-07-31 20:19] LABS: Glucose,Whole Blood 102 mg/dL (75-99)
[2021-08-01] MEDS: HYDROmorphone 0.5 MG/0.5 ML SYRINGE IVP PRN ×7 (00:58→21:33)
[2021-08-01] MEDS: ONDANSETRON 4 MG/2 ML VIAL IVP PRN ×2 (04:21→21:53)
[2021-08-01] MEDS: SODIUM CHLORIDE 0.9% 1,000 ML IV SCH ×3 (04:21→18:12)
[2021-08-01] MEDS: diphenhydrAMINE 50 MG/ML 1 ML VIAL IVP PRN ×4 (04:22→21:33)
[2021-08-01 07:15] LABS: Glucose,Whole Blood 202 mg/dL (75-99)
[2021-08-01] MEDS: busPIRone HCl 5 MG TAB PO SCH ×4 (08:25→21:35)
[2021-08-01] MEDS: INSULIN ASPART (NovoLOG) 100 UNIT/ML VIAL SQ SCH ×4 (08:25→21:34)
[2021-08-01] MEDS: polyethylene glycoL 3350 17 GM POWD.PACK PO SCH (08:25)
[2021-08-01] MEDS: PANTOPRAZOLE 40 MG TABLET PO SCH (08:25)
[2021-08-01] MEDS: HEPARIN SODIUM,PORCINE/PF 5,000 UNIT/0.5 ML SYRINGE SQ SCH ×3 (08:25→21:34)
[2021-08-01] MEDS: DESVENLAFAXINE SUCCINATE 50 MG TAB.ER.24H PO SCH (08:26)
[2021-08-01] MEDS: MUPIROCIN 2% OINT 22 GM TUBE TOPICAL SCH ×3 (10:38→21:35)
[2021-08-01 11:56] LABS: Glucose,Whole Blood 114 mg/dL (75-99)
--- NOTE | 2021-08-01 12:53 | P.PN ---
Subjective Progress Note Date: 08/01/21 Principal diagnosis: abdominal pain She still has abdominal pain. She states it is currently 11/19. She is on clears. No n/v. No diarrhea. Objective - Vital Signs Vital signs: Vital Signs Temp 97.9 F 08/01/21 07:00 Pulse 98 08/01/21 08:00 Resp 17 08/01/21 08:00 BP 100/67 08/01/21 07:00 Pulse Ox 96 08/01/21 07:00 Intake & Output 07/31/21 08/01/21 08/01/21 18:59 06:59 18:59 Intake Total 240 240 Balance 240 240 Intake: Oral 240 240 Other: Voiding Method Toilet Toilet Toilet # Voids 3 1 - Exam Constitutional: No acute distress, conversant, pleasant Eyes:Anicteric sclerae, moist conjunctiva, no lid-lag, PERRLA, ENMT: Oropharynx clear, no erythema, exudates Neck: Supple, FROM, no masses, or JVD, No carotid bruits, No thyromegaly Lungs: Clear to auscultation, Clear to percussion, Normal respiratory effort, no accessory muscle use Cardiovascular: Heart regular in rate and rhythm, No murmurs, gallops, or rubs, No peripheral edema Abdominal: Soft, tender in the epigastric area, no guarding, rebound or rigidity , Normoactive bowel sounds, No hepatomegaly, No splenomegaly, No palpable mass Skin: Normal temperature, tone, texture, turgor, no induration, No subcutaneous nodules, No rash, lesions, No ulcers Extremities: No digital cyanosis, No clubbing, Pedal pulses intact and symmetrical, Radial pulses intact and symmetrical, No calf tenderness Psychiatric: Alert and oriented to person, place and time, appropriate affect, intact judgement Neuro: Muscles Strength 5/5 in all 4 extremities, Sensation to light touch grossly present throughout, Cranial nerves II-XII grossly intact, no focal sensory deficits - Labs CBC & Chem 7: 07/31/21 06:31 07/31/21 06:31 Labs: Abnormal Lab Results - Last 24 Hours (Table) 07/31/21 07/31/21 07/31/21 Range/Units 06:31 14:39 20:18 POC Glucose (mg/dL) 102 H (75-99) mg/dL Lipase 81 H 550 H (14-63) U/L 08/01/21 08/01/21 Range/Units 07:12 11:55 POC Glucose (mg/dL) 202 H 114 H (75-99) mg/dL Lipase (14-63) U/L Assessment and Plan Plan: Acute on chronic recurrent pancreatitis Status post recent cholecystectomy, 3 weeks ago -Pain control with opiates -IV fluid hydration aggressive with lactated Ringer -Zofran for symptomatic control of nausea vomiting -GI following, appreciate further recommendations -Clear liquid diet--advance gradually. Check lipase in am Diabetes mellitus -Glycemic protocol with NovoLog sliding scale Intermittent asthma -DuoNeb's when necessary Small cystic swelling over surgical wound possible infection -Mupirocin topical CODE STATUS: Full code DVT prophylaxis: Heparin Discussed with: Patient, RN, and GI team Patient admission status changed to inpatient because she failed to progress as expected. Continues to have abdominal pain requiring IV opiates treatment.
--- NOTE | 2021-08-01 13:55 | P.PN ---
Subjective Progress Note Date: 08/01/21 Principal diagnosis: Acute on chronic pancreatitis 30-year-old female who presented to the emergency department with complaints of epigastric and right upper quadrant pain noted to have elevated lipase. Patient has history of recurrent pancreatitis. She recently was admitted to [facility] approximately 3-4 weeks ago and underwent cholecystectomy as suspected cause for recurrent pancreatitis. At that time she also states she had blood work indicating a possible autoimmune pancreatitis. 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 Lipase is improving. LFTs within normal. Patient states she has some mild nausea but no vomiting. States abdominal pain is still present. No bowel movement. Objective - Vital Signs Vital signs: Vital Signs Temp 97.9 F 08/01/21 07:00 Pulse 98 08/01/21 07:00 Resp 17 08/01/21 07:00 BP 100/67 08/01/21 07:00 Pulse Ox 96 08/01/21 07:00 Intake & Output 07/31/21 08/01/21 08/01/21 18:59 06:59 18:59 Intake Total 240 240 Balance 240 240 Intake: Oral 240 240 Other: Voiding Method Toilet Toilet # Voids 3 1 - Exam General appearance: The patient is alert, oriented, appears in no acute distress. HET: Head is normocephalic and atraumatic. Conjunctiva pink. Sclera anicteric. Neck: Supple without lymphadenopathy. Abdomen: Soft, obese, right upper quadrant and epigastric tenderness, nondistended with bowel sounds. No guarding or rigidity. Extremities: Normal skin color and turgor. No pedal edema Skin: No rashes, no jaundice Neurological: No focal deficits. Alert and oriented x3. - Labs CBC & Chem 7: 07/31/21 06:31 07/31/21 06:31 Labs: Abnormal Lab Results - Last 24 Hours (Table) 07/31/21 07/31/21 07/31/21 Range/Units 06:31 12:12 14:39 POC Glucose (mg/dL) 151 H (75-99) mg/dL Lipase 81 H 550 H (14-63) U/L 07/31/21 08/01/21 Range/Units 20:18 07:12 POC Glucose (mg/dL) 102 H 202 H (75-99) mg/dL Lipase (14-63) U/L Assessment and Plan (1) Acute on chronic pancreatitis Narrative/Plan: 30-year-old female with a history of multiple episodes of pancreatitis. Had been unknown etiology. Patient most recently went to [facility] for abdominal pain approximately 3 weeks ago and underwent cholecystectomy. At that time she was told that the gallbladder had sludge. She was recommended to have further follow-up with an endoscopic ultrasound. Patient has not had follow-up yet due to transportation issues. 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 She her mom does have a history of pancreatitis as well. She believes that she's had 5-6 episodes of pancreatitis between January and now. States abdominal pain started about 1 week ago with episodes of nausea and vomiting. Possible etiologies are autoimmune pancreatitis which is currently being worked up with [facility]. Recommend IV hydration, pain medication and follow-up with [facility]. Current Visit: Yes Status: Acute Code(s): K85.90 - ACUTE PANCREATITIS WITHOUT NECROSIS OR INFECTION, UNSP; K86.1 - OTHER CHRONIC PANCREATITIS SNOMED Code(s): 337425664 Plan: 1. Continue symptomatic and supportive care 2. Diet as tolerated 3. Encourage ambulation 4. Recommend transitioning from IV pain medication to oral 5. Anticipate discharge in the next 24 hours 6. Follow-up with [facility]/gastroenterology for EUS Thank you for allowing us to participate in the care of the patient, the GI service will sign off, gastroenterology will not be available at the hospital this weekend and through next week. If further evaluation by gastroenterology is required the patient will need transfer as per the primary team's discretion. Thank you for this consultation, we will continue to follow. Dr. Aldo Bocanegra I agree with the dictator's note, documented as a scribe by Roxaan Torres.
[2021-08-01] MEDS: IPRATROPIUM-ALBUTEROL 3 ML NEB INHALATION PRN (15:28)
[2021-08-01 17:05] LABS: Glucose,Whole Blood 264 mg/dL (75-99)
[2021-08-01 20:11] LABS: Glucose,Whole Blood 215 mg/dL (75-99)
[2021-08-01] MEDS: QUEtiapine 400 MG TAB PO SCH (21:34)
[2021-08-01] MEDS: traZODone HCL 100 MG TAB PO SCH (21:34)
[2021-08-02] MEDS: HYDROmorphone 0.5 MG/0.5 ML SYRINGE IVP PRN ×6 (00:47→21:32)
[2021-08-02] MEDS: SODIUM CHLORIDE 0.9% 1,000 ML IV SCH ×4 (00:49→21:38)
[2021-08-02] MEDS: diphenhydrAMINE 50 MG/ML 1 ML VIAL IVP PRN ×4 (03:19→21:32)
[2021-08-02 07:40] LABS: Glucose,Whole Blood 183 mg/dL (75-99)
[2021-08-02] MEDS: HEPARIN SODIUM,PORCINE/PF 5,000 UNIT/0.5 ML SYRINGE SQ SCH ×3 (08:34→21:33)
[2021-08-02] MEDS: DESVENLAFAXINE SUCCINATE 50 MG TAB.ER.24H PO SCH (08:34)
[2021-08-02] MEDS: PANTOPRAZOLE 40 MG TABLET PO SCH (08:34)
[2021-08-02] MEDS: busPIRone HCl 5 MG TAB PO SCH ×4 (08:34→21:32)
[2021-08-02] MEDS: INSULIN ASPART (NovoLOG) 100 UNIT/ML VIAL SQ SCH ×4 (08:35→21:32)
[2021-08-02] MEDS: MUPIROCIN 2% OINT 22 GM TUBE TOPICAL SCH ×3 (08:36→21:33)
[2021-08-02] MEDS: polyethylene glycoL 3350 17 GM POWD.PACK PO SCH (08:36)
[2021-08-02 11:40] LABS: Basophils # (A) 0.02 X 10*3/uL (0.00-0.10); Basophils % (A) 0.5 %; Eosinophils % (A) 2.4 %; HCT 31.5 % (37.2-46.3); HGB 10.1 g/dL (12.0-15.0); Immature Grans, Automated 0.2 %; Lymphocytes # (A) 2.24 X 10*3/uL (0.90-5.00); Lymphocytes % (A) 54.6 %; MCH 32.2 pg (27.0-32.0); MCHC 32.1 g/dL (32.0-37.0); MCV 100.3 fL (80.0-97.0); Mean Platelet Volume 10.9 fL (9.5-12.2); Monocytes % (A) 7.3 %; NRBC Per 100 WBC 0 /100 WBCS (0.0-0.0); Neutrophils # (A) 1.43 X 10*3/uL (1.80-7.70); Platelet Count 241 X 10*3/uL (140-440); RBC 3.14 X 10*6/uL (4.10-5.20); RDW 13.7 % (11.5-14.5)
--- NOTE | 2021-08-02 11:44 | P.PN ---
Subjective Progress Note Date: 08/02/21 Principal diagnosis: abdominal pain Patient showing drug-seeking behavior according to the nurses. She is asking for IV Dilaudid every 3 hours, even an hour before it is due. She states that she still cannot tolerate diet. Objective - Vital Signs Vital signs: Vital Signs Temp 98.2 F 08/02/21 07:00 Pulse 89 08/02/21 07:00 Resp 18 08/02/21 07:00 BP 99/65 08/02/21 07:00 Pulse Ox 95 08/02/21 07:00 Intake & Output 08/01/21 08/02/21 08/02/21 18:59 06:59 18:59 Intake Total 480 120 Output Total 0 Balance 480 120 Intake: Oral 480 120 Output: Stool 0 Other: Voiding Method Toilet # Voids 1 1 0 # Bowel Movements 0 0 - Exam Constitutional: No acute distress, conversant, pleasant Eyes:Anicteric sclerae, moist conjunctiva, no lid-lag, PERRLA, ENMT: Oropharynx clear, no erythema, exudates Neck: Supple, FROM, no masses, or JVD, No carotid bruits, No thyromegaly Lungs: Clear to auscultation, Clear to percussion, Normal respiratory effort, no accessory muscle use Cardiovascular: Heart regular in rate and rhythm, No murmurs, gallops, or rubs, No peripheral edema Abdominal: Soft, tender in the epigastric area, no guarding, rebound or rigidity, Normoactive bowel sounds, No hepatomegaly, No splenomegaly, No palpable mass Skin: Normal temperature, tone, texture, turgor, no induration, No subcutaneous nodules, No rash, lesions, No ulcers Extremities: No digital cyanosis, No clubbing, Pedal pulses intact and symmetrical, Radial pulses intact and symmetrical, No calf tenderness Psychiatric: Alert and oriented to person, place and time, appropriate affect, intact judgement Neuro: Muscles Strength 5/5 in all 4 extremities, Sensation to light touch grossly present throughout, Cranial nerves II-XII grossly intact, no focal sensory deficits - Labs CBC & Chem 7: 08/02/21 06:31 07/31/21 06:31 Labs: Abnormal Lab Results - Last 24 Hours (Table) 08/01/21 08/01/21 08/01/21 Range/Units 11:55 17:03 20:09 WBC (4.50-10.00) X 10*3/uL RBC (4.10-5.20) X 10*6/uL Hgb (12.0-15.0) g/dL Hct (37.2-46.3) % MCV (80.0-97.0) fL MCH (27.0-32.0) pg Neutrophils # (1.80-7.70) X 10*3/uL POC Glucose (mg/dL) 114 H 264 H 215 H (75-99) mg/dL 08/02/21 08/02/21 Range/Units 06:31 07:32 WBC 4.10 L (4.50-10.00) X 10*3/uL RBC 3.14 L (4.10-5.20) X 10*6/uL Hgb 10.1 L (12.0-15.0) g/dL Hct 31.5 L (37.2-46.3) % MCV 100.3 H (80.0-97.0) fL MCH 32.2 H (27.0-32.0) pg Neutrophils # 1.43 L (1.80-7.70) X 10*3/uL POC Glucose (mg/dL) 183 H (75-99) mg/dL Assessment and Plan Plan: Acute on chronic recurrent pancreatitis Status post recent cholecystectomy, 3 weeks ago -Pain control with opiates -IV fluid hydration aggressive with lactated Ringer -Zofran for symptomatic control of nausea vomiting -GI following, appreciate further recommendations -Clear liquid diet--advance gradually. -Awaiting am labs -Change IV dilaudid to q6hrs prn, add toradol. Diabetes mellitus -Glycemic protocol with NovoLog sliding scale Intermittent asthma -DuoNeb's when necessary Small cystic swelling over surgical wound possible infection -Mupirocin topical CODE STATUS: Full code DVT prophylaxis: Heparin Discussed with: Patient, RN
[2021-08-02 11:48] LABS: Lipase 97 U/L (14-63)
[2021-08-02 11:59] LABS: Glucose,Whole Blood 129 mg/dL (75-99)
[2021-08-02] MEDS: KETOROLAC 15 MG/ML 1 ML VIAL IVP SCH ×2 (12:26→17:55)
[2021-08-02 12:39] LABS: ALT 22 U/L (8-44); AST 25 U/L (13-35); African American GFR (CKD) 135.7 (60.0-200.0); Albumin 3.3 g/dL (3.8-4.9); Albumin/Globulin Ratio 1.65 (1.60-3.17); Alkaline Phosphatase 44 U/L (41-126); BUN/Creat Ratio 3.71 Ratio (12.00-20.00); Blood Urea Nitrogen 2.6 mg/dL (9.0-27.0); Calcium 9.8 mg/dL (8.7-10.3); Carbon Dioxide 21.1 mmol/L (20.0-27.5); Chloride 107 mmol/L (96-109); Glucose 191 mg/dL (70-110); Non-African American GFR(CKD) 117.1 (60.0-200.0); Potassium 4.1 mmol/L (3.5-5.5); Sodium 137 mmol/L (135-145); Total Bilirubin <0.15 mg/dL (0.30-1.20); Total Protein 5.3 g/dL (6.2-8.2)
[2021-08-02 17:04] LABS: Glucose,Whole Blood 167 mg/dL (75-99)
[2021-08-02 20:14] LABS: Glucose,Whole Blood 237 mg/dL (75-99)
[2021-08-02] MEDS: QUEtiapine 400 MG TAB PO SCH (21:33)
[2021-08-02] MEDS: traZODone HCL 100 MG TAB PO SCH (21:33)
[2021-08-03] MEDS: KETOROLAC 15 MG/ML 1 ML VIAL IVP SCH ×3 (00:11→12:43)
[2021-08-03] MEDS: diphenhydrAMINE 50 MG/ML 1 ML VIAL IVP PRN ×2 (03:23→10:32)
[2021-08-03] MEDS: HYDROmorphone 0.5 MG/0.5 ML SYRINGE IVP PRN ×2 (03:23→10:32)
[2021-08-03 03:56] VITALS: RESP 18
[2021-08-03] MEDS: SODIUM CHLORIDE 0.9% 1,000 ML IV SCH (04:04)
[2021-08-03 07:17] VITALS: BP 105/68; PULSE 86; TEMP 98.1
[2021-08-03 07:21] LABS: Glucose,Whole Blood 188 mg/dL (75-99)
[2021-08-03] MEDS: INSULIN ASPART (NovoLOG) 100 UNIT/ML VIAL SQ SCH ×2 (08:06→12:44)
[2021-08-03] MEDS: PANTOPRAZOLE 40 MG TABLET PO SCH (08:06)
[2021-08-03] MEDS: busPIRone HCl 5 MG TAB PO SCH (08:06)
[2021-08-03] MEDS: HEPARIN SODIUM,PORCINE/PF 5,000 UNIT/0.5 ML SYRINGE SQ SCH (08:06)
[2021-08-03] MEDS: DESVENLAFAXINE SUCCINATE 50 MG TAB.ER.24H PO SCH (08:07)
[2021-08-03] MEDS: MUPIROCIN 2% OINT 22 GM TUBE TOPICAL SCH (08:07)
[2021-08-03] MEDS: polyethylene glycoL 3350 17 GM POWD.PACK PO SCH (08:07)
[2021-08-03] MEDS: ONDANSETRON 4 MG/2 ML VIAL IVP PRN (08:15)
[2021-08-03 11:47] LABS: Glucose,Whole Blood 217 mg/dL (75-99)
--- NOTE | 2021-08-03 12:36 | P.DS ---
Providers Date of admission: 08/01/21 12:46 Expected date of discharge: 08/03/21 Attending physician: Omid Smiley MD Consults: 07/30/21 19:33 Consult Physician Routine Consulting Provider: Katarzyna Bocanegra Consult Reason/Comments: Acute on chronic pancreatitis, nausea and vomiting Do you want consulting provider notified?: Yes Primary care physician: [facility] Course: 30-year-old female with a history of multiple episodes of pancreatitis of unknown etiology presented due to worsening abdominal pain, nausea and vomiting for the past 1 week. No fevers or chills. Patient most recently went to [facility] for abdominal pain approximately 3 weeks ago and underwent cholecystectomy. At that time she was told that the gallbladder had sludge. She was recommended to have further follow-up with an endoscopic ultrasound. Patient has not had follow-up yet due to transportation issues. 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 She her mom does have a history of pancreatitis as well. She believes that she's had 5-6 episodes of pancreatitis between January and now. No sob, cp. No recent flu like illness. No diarrhea. Evaluation in the ER revealed WBC 5.0 hemoglobin 10.6 hematocrit 32 platelet count 215,000 sodium 140 potassium 3.9 BUN 7.3 creatinine 0.6 total bilirubin 0.3 AST 20 ALT 15 alkaline phosphatase 37 lipase on admission 912. She was diagnosed with pancreatitis. Was admitted, started on IV fuids. Pain control was achieved with dilaudid. Her labs, lipase gradually improved. However she continued to describe severe abdominal pain and was asking for dilaudid and benadryl around the clock. She was tolerating diet yesterday and today however according to her RN, despite her telling me that she can't eat. She will be discharged today in a stable condition. She was told to follow up in a tertiary care center for further endoscopies. Time for discharge 36 min Patient Condition at Discharge: Serious Plan - Discharge Summary Discharge Rx Participant: No New Discharge Prescriptions: New Ondansetron [Zofran] 4 mg PO Q8HR PRN 10 Days #20 tab PRN Reason: Nausea Continue metFORMIN HCL 500 mg PO BID@0800,1700 Fenofibrate [Lofibra] 160 mg PO DAILY@2100 Acetaminophen Tab [Tylenol] 1,000 mg PO Q6HR PRN PRN Reason: Pain Ondansetron Odt [Zofran ODT] 4 mg PO Q4H PRN PRN Reason: Nausea traZODone HCL [Desyrel] 250 mg PO HS@2100 Desvenlafaxine [Desvenlafaxine ER] 50 mg PO DAILY@0800 QUEtiapine [SEROquel] 400 mg PO HS@2100 ARIPiprazole IM SYRINGE [Abilify Maintena Syringe] 400 mg IM Q30D Midodrine HCl 5 mg PO BID PRN PRN Reason: LOW BLOOD PRESSURE hydrOXYzine pamoate [hydrOXYzine PAMOATE] 25 mg PO TID PRN PRN Reason: Anxiety Dicyclomine [Bentyl] 10 mg PO TID PRN PRN Reason: CRAMPING busPIRone HCL 15 mg PO QID@08,12,16,21 Discharge Medication List Fenofibrate [Lofibra] 160 mg PO DAILY@209907/02/21 [History] Midodrine HCl 5 mg PO BID PRN 07/02/21 [History] hydrOXYzine pamoate [hydrOXYzine PAMOATE] 25 mg PO TID PRN 07/02/21 [History] metFORMIN HCL 500 mg PO BID@0800,1700 07/02/21 [History] ARIPiprazole IM SYRINGE [Abilify Maintena Syringe] 400 mg IM Q30D 07/28/21 [History] Acetaminophen Tab [Tylenol] 1,000 mg PO Q6HR PRN 07/28/21 [History] Desvenlafaxine [Desvenlafaxine ER] 50 mg PO DAILY@0800 07/28/21 [History] Dicyclomine [Bentyl] 10 mg PO TID PRN 07/28/21 [History] Ondansetron Odt [Zofran ODT] 4 mg PO Q4H PRN 07/28/21 [History] QUEtiapine [SEROquel] 400 mg PO HS@209907/28/21 [History] busPIRone HCL 15 mg PO QID@08,12,16,21 07/28/21 [History] traZODone HCL [Desyrel] 250 mg PO HS@209907/28/21 [History] Ondansetron [Zofran] 4 mg PO Q8HR PRN 10 Days #20 tab 08/03/21 [Rx] Follow up Appointment(s)/Referral(s): Isi Carolina MD [Primary Care Provider] - 1-2 days
== END 2021-08-03 13:12 | disposition home or self-care (01) | DRG 439 ==
LOC: EC 16:21 → 6NMEDSUR 20:21 → OBSVTOIN 08-01 12:46
PROVIDERS: ADMIT Internal Medicine; ATTEND Internal Medicine
DX: K85.90 Acute pancreatitis without necrosis or infection, unspecified (principal); T81.41XA Infection following a procedure, superficial incisional surgical site, initial encounter; K86.1 Other chronic pancreatitis; D89.89 Other specified disorders involving the immune mechanism, not elsewhere classified; G43.909 Migraine, unspecified, not intractable, without status migrainosus; E11.9 Type 2 diabetes mellitus without complications; M32.9 Systemic lupus erythematosus, unspecified; F32.A Depression, unspecified; F43.10 Post-traumatic stress disorder, unspecified; Y84.8 Other medical procedures as the cause of abnormal reaction of the patient, or of later complication, without mention of misadventure at the time of the procedure; J45.20 Mild intermittent asthma, uncomplicated; Z76.5 Malingerer [conscious simulation]; Z79.84 Long term (current) use of oral hypoglycemic drugs; Z79.899 Other long term (current) drug therapy; Z82.49 Family history of ischemic heart disease and other diseases of the circulatory system; Z90.49 Acquired absence of other specified parts of digestive tract; Z88.8 Allergy status to other drugs, medicaments and biological substances; Z88.2 Allergy status to sulfonamides; Z88.5 Allergy status to narcotic agent; Z91.030 Bee allergy status; Z91.040 Latex allergy status; Z91.018 Allergy to other foods
CPT/HCPCS: 36415; 76700; 80053; 81001; 81025; 82150; 83605; 83690; 84132; 85025; 93005; 94640; 96361; 96374; 96375; 96376; 99284

== ENCOUNTER 2021-08-04 09:05 | Emergency (ER) | payer OTHER ==
--- NOTE | 2021-08-04 14:29 | XR ---
EXAMINATION TYPE: XR ankle complete LT DATE OF EXAM: 08/04/2021 COMPARISON: NONE HISTORY: Pain FINDINGS: Three views of the ankle demonstrate the ankle mortise to be intact and symmetric. The joint spaces are preserved. The osseous structures are intact. Tiny calcaneal spurs are noted. IMPRESSION: 1. No definite acute fracture or dislocation, if symptoms persist follow-up study in 7 to 10 days wou ld be suggested.
== END 2021-08-04 12:10 | disposition home or self-care (01) ==
LOC: EC 09:05
DX: S99.912A Unspecified injury of left ankle, initial encounter (principal); W10.9XXA Fall (on) (from) unspecified stairs and steps, initial encounter
CPT/HCPCS: 99284

== ENCOUNTER 2021-08-09 19:21 | Observation (INO) | payer OTHER ==
[2021-08-09] MEDS ORDERED: SODIUM CHLORIDE 0.9% 1,000 ML IV STA (19:58)
[2021-08-09 20:56] LABS: Basophils % (A) 1 %; Eosinophils # (A) 0.1 k/uL (0-0.7); Eosinophils % (A) 1 %; HGB 13.2 gm/dL (11.4-16.0); Lymphocytes % (A) 37 %; MCH 31.6 pg (25.0-35.0); MCHC 32.2 g/dL (31.0-37.0); Mean Platelet Volume 7.6; Monocytes # (A) 0.3 k/uL (0-1.0); Monocytes % (A) 5 %; Neutrophils # (A) 2.9 k/uL (1.3-7.7); Neutrophils % (A) 54 %; Platelet Count 316 k/uL (150-450); RBC 4.18 m/uL (3.80-5.40); RDW 13.4 % (11.5-15.5); WBC 5.3 k/uL (3.8-10.6)
[2021-08-09 20:58] LABS: ALT 20 U/L (4-34); AST 25 U/L (14-36); African American GFR (CKD) >90 (>60 ml/min/1.73 sqM); Albumin 4.4 g/dL (3.5-5.0); Alkaline Phosphatase 56 U/L (38-126); Anion Gap 11 mmol/L; Blood Urea Nitrogen 7 mg/dL (7-17); Calcium 10.9 mg/dL (8.4-10.2); Carbon Dioxide 24 mmol/L (22-30); Chloride 105 mmol/L (98-107); Glucose 126 mg/dL (74-99); Lipase 728 U/L (23-300); Non-African American GFR(CKD) >90 (>60 ml/min/1.73 sqM); Sodium 140 mmol/L (137-145); Total Bilirubin 0.4 mg/dL (0.2-1.3); Total Protein 7.6 g/dL (6.3-8.2)
[2021-08-09 21:27] LABS: Appearance,Urine Cloudy (Clear); Bacteria,Urine Occasional /hpf; Bilirubin,Urine Negative (Negative); Blood,Urine Moderate (Negative); Budding Yeast,Urine Few /hpf; Calcium Oxalate Crystals,Urine Many /hpf; Color,Urine Yellow; Glucose,Urine (UA) Negative (Negative); Ketones,Urine Negative (Negative); Leukocyte Esterase,Urine Trace (Negative); Mucus,Urine Occasional /hpf; Nitrite,Urine Negative (Negative); Protein,Urine Negative (Negative); RBC,Urine 7 /hpf (0-5); Specific Gravity,Urine 1.013 (1.001-1.035); Squamous Epithelial Cell,Urine 5 /hpf (0-4); Urobilinogen,Urine <2.0 mg/dL (<2.0); WBC,Urine 3 /hpf (0-5)
[2021-08-09] MEDS ORDERED: traMADol 50 MG TAB PO STA (21:35)
[2021-08-09] MEDS ORDERED: ONDANSETRON 4 MG/2 ML VIAL IVP STA (21:35)
[2021-08-09] MEDS ORDERED: KETOROLAC 15 MG/ML 1 ML VIAL IVP STA (21:41)
--- NOTE | 2021-08-09 22:20 | US ---
EXAMINATION TYPE: US renals and bladder DATE OF EXAM: 08/09/2021 COMPARISON: CLINICAL HISTORY: ab pain, hx stone. left side pain per patient EXAM MEASUREMENTS: Right Kidney: 9.6 x 4.8 x 4.5 cm Left Kidney: 10.5 x 4.7 x 5.3 cm Right Kidney: No hydronephrosis or masses seen Left Kidney: No hydronephrosis or masses seen Bladder: distended, anechoic Right jet seen IMPRESSION: No sign of renal mass or obstruction. No evidence of bladder mass.
--- NOTE | 2021-08-09 22:27 | XR ---
EXAMINATION TYPE: XR KUB DATE OF EXAM: 08/09/2021 COMPARISON: 07/26/2021 HISTORY: Abdominal pain TECHNIQUE: 2 views upright FINDINGS: There are clips from cholecystectomy. There are no calcifications over the kidneys. Bowel gas pattern is normal. No sign of intestinal obst ruction or pneumoperitoneum. Fecal pattern is normal. Lung bases are clear. IMPRESSION: Nonacute abdomen. No change.
[2021-08-09] MEDS ORDERED: FLUCONAZOLE 150 MG TAB PO STA (23:04)
[2021-08-09] MEDS ORDERED: NITROFURANTOIN MONOHYD/M-CRYST 100 MG CAP PO STA (23:06)
[2021-08-09] MEDS ORDERED: NALOXONE 0.4 MG/ML 1 ML VIAL IV PRN (23:35)
--- NOTE | 2021-08-09 23:35 | ED ---
Abdominal Pain HPI - General Chief Complaint: Abdominal Pain Stated Complaint: L abd pain Time Seen by Provider: 08/09/21 19:50 Source: patient Mode of arrival: ambulatory - History of Present Illness Initial Comments: 30-year-old female well known to the emergency Department for history of migraines, diabetes, chronic pancreatitis presents for left upper quadrant abdominal pain. Admits to nausea with vomiting. States he is unable to hold down anything to eat or drink. Patient hospitalized 3 weeks ago at [facility] and had gallbladder removal. States that she is fine with a GI physician out of this facility and is scheduled to have an endoscopic ultrasound. The patient began having worsening symptoms today and therefore came into the emergency department. Facility that she resides at states that she was refusing her home medication and did not try them before coming into the hospital. Patient denies this to me. She denies any changes in her bowel or bladder habits. No concern for . No other alleviating, public opinion survey taker modifying factors - Related Data Home Medications Medication Instructions Recorded Confirmed Fenofibrate [Lofibra] 160 mg PO HS 07/02/21 08/10/21 Midodrine HCl 5 mg PO BID PRN 07/02/21 08/10/21 hydrOXYzine pamoate [hydrOXYzine 25 mg PO TID PRN 07/02/21 08/10/21 PAMOATE] metFORMIN HCL 500 mg PO BID@0800,1700 07/02/21 08/10/21 ARIPiprazole IM SYRINGE [Abilify 400 mg IM Q30D 07/28/21 08/10/21 Maintena Syringe] Acetaminophen Tab [Tylenol] 1,000 mg PO Q6H PRN 07/28/21 08/10/21 Desvenlafaxine [Desvenlafaxine ER] 50 mg PO DAILY@0800 07/28/21 08/10/21 Dicyclomine [Bentyl] 10 mg PO TID PRN 07/28/21 08/10/21 Ondansetron Odt [Zofran ODT] 4 mg PO Q4H PRN 07/28/21 08/10/21 QUEtiapine [SEROquel] 400 mg PO HS 07/28/21 08/10/21 busPIRone HCL 15 mg PO QID@08,12,16,21 07/28/21 08/10/21 traZODone HCL [Desyrel] 250 mg PO HS 07/28/21 08/10/21 Acetaminophen-Codeine 300-30mg 1 tab PO Q4H PRN 08/10/21 08/10/21 [Tylenol w/codeine #3] Ibuprofen [Motrin] 600 mg PO TID PRN 08/10/21 08/10/21 Ondansetron [Zofran] 4 mg PO Q8H PRN 08/10/21 08/10/21 Allergies Allergy/AdvReac Type Severity Reaction Status Date / Time bee pollen Allergy Severe Anaphylaxis Verified 08/10/21 10:53 haloperidol [From Haldol] Allergy Severe QUIT Verified 08/10/21 10:53 BREATHING haloperidol lactate Allergy Severe QUIT Verified 08/10/21 10:53 [From Haldol] BREATHING latex Allergy Severe RASH-THROAT Verified 08/10/21 10:53 CLOSES [place] Allergy Anaphylaxis Verified 08/10/21 10:53 coconut Allergy Anaphylaxis Verified 08/10/21 10:53 morphine Allergy Rash/Hives Verified 08/10/21 10:53 pineapple Allergy Anaphylaxis Verified 08/10/21 10:53 prednisone Allergy THROAT Verified 08/10/21 10:53 SWELLS spider venom Allergy Swelling Verified 08/10/21 10:53 Sulfa (Sulfonamide Allergy THROAT Verified 08/10/21 10:53 Antibiotics) SWELLS venom-wasp Allergy Swelling Verified 08/10/21 10:53 venom-wasp protein Allergy Swelling Verified 08/10/21 10:53 promethazine HCl AdvReac Severe Nausea & Verified 08/10/21 10:53 [From Phenergan] Vomiting tramadol AdvReac Severe Nausea & Verified 08/10/21 10:53 Vomiting amoxicillin AdvReac Nausea & Verified 08/10/21 10:53 Vomiting ANTS AdvReac Mild Anaphylaxis Uncoded 08/10/21 10:53 Review of Systems ROS Statement: Those systems with pertinent positive or pertinent negative responses have been documented in the HPI. ROS Other: All systems not noted in ROS Statement are negative. Past Medical History Past Medical History: Asthma, Diabetes Mellitus, GERD/Reflux Additional Past Medical History / Comment(s): migraines, degenerative disk disease, endometriosis, lupus, pancreatitis, DM2- diet controlled History of Any Multi-Drug Resistant Organisms: None Reported Past Surgical History: Orthopedic Surgery Additional Past Surgical History / Comment(s): laparoscopc surgery for endometriosis, cyst removed from left foot, EGD, Past Anesthesia/Blood Transfusion Reactions: Previous Problems w/ Anesthesia Additional Past Anesthesia/Blood Transfusion Reaction / Comment(s): hard to wake up for 48-72 hours after laparoscopic surgery-was in hosp. for 3 days Past Psychological History: Anxiety, Depression, PTSD Smoking Status: Never smoker Past Alcohol Use History: None Reported Past Drug Use History: Marijuana - Past Family History Mother Family Medical History: No Reported History Additional Family Medical History / Comment(s): hx migraines Father Family Medical History: Coronary Artery Disease (CAD), Hypertension Additional Family Medical History / Comment(s): ddd, alcoholism & drug use General Exam General appearance: alert, in no apparent distress Head exam: Present: atraumatic, normocephalic, normal inspection Eye exam: Present: normal appearance, PERRL, EOMI. Absent: scleral icterus, conjunctival injection, periorbital swelling ENT exam: Present: normal exam, mucous membranes moist Neck exam: Present: normal inspection. Absent: tenderness, meningismus, lymphadenopathy Respiratory exam: Present: normal lung sounds bilaterally. Absent: respiratory distress, wheezes, rales, rhonchi, stridor Cardiovascular Exam: Present: regular rate, normal rhythm, normal heart sounds. Absent: systolic murmur, diastolic murmur, rubs, gallop, clicks GI/Abdominal exam: Present: soft, tenderness (generalized), normal bowel sounds. Absent: distended, guarding, rebound, rigid Extremities exam: Present: normal inspection, full ROM, normal capillary refill. Absent: tenderness, pedal edema, joint swelling, calf tenderness Back exam: Present: normal inspection Neurological exam: Present: alert, oriented X3, CN II-XII intact Psychiatric exam: Present: normal affect, normal mood Skin exam: Present: warm, dry, intact, normal color. Absent: rash Course Vital Signs 08/09/21 08/09/21 08/10/21 19:25 22:29 00:55 Temperature 97.6 F 98.7 F Pulse Rate 104 H 94 Pulse Rate [ 83 Pulse Oximetery ] Respiratory 22 20 18 Rate Blood Pressure 130/94 129/90 Blood Pressure 117/82 [Left Arm] O2 Sat by Pulse 99 97 98 Oximetry Medical Decision Making - Medical Decision Making Of arrival patient is placed into room 18. A thorough history of physical exam is performed. IV access established laboratory studies were conducted. Patient describes to me the only pain medications that work for her are narcotics. I did call and speak with the patient's guardian who states that the patient should not be administered narcotics and other pain management options should be attempted. Patient given a liter bolus of normal saline, Zofran and Toradol. I did review the patient's labs. Does demonstrate a lipase of 728. She does have occasional bacteria for which she is given Macrobid and few yeast for which she is given Diflucan. KUB and renal ultrasound were performed which demonstrate no acute findings. I did discuss the diagnosis, differential and treatment options. Patient begins crying in the room, requesting admission as she cannot hold down anything to eat or drink. Patient given a second dose of nausea medications. Called and spoke with Dr. Vasques who agreed to admit the patient. Patient is made nothing by mouth and currently awaiting a bed on the floor - Lab Data Result diagrams: 08/10/21 05:44 08/10/21 05:44 Lab Results 08/09/21 08/09/21 08/09/21 Range/Units 20:38 20:38 20:38 WBC 5.3 (3.8-10.6) k/uL RBC 4.18 (3.80-5.40) m/uL Hgb 13.2 (11.4-16.0) gm/dL Hct 41.0 (34.0-46.0) % MCV 98.0 (80.0-100.0) fL MCH 31.6 (25.0-35.0) pg MCHC 32.2 (31.0-37.0) g/dL RDW 13.4 (11.5-15.5) % Plt Count 316 (150-450) k/uL MPV 7.6 Neutrophils % 54 % Lymphocytes % 37 % Monocytes % 5 % Eosinophils % 1 % Basophils % 1 % Neutrophils # 2.9 (1.3-7.7) k/uL Lymphocytes # 2.0 (1.0-4.8) k/uL Monocytes # 0.3 (0-1.0) k/uL Eosinophils # 0.1 (0-0.7) k/uL Basophils # 0.0 (0-0.2) k/uL Sodium 140 (137-145) mmol/L Potassium 4.0 (3.5-5.1) mmol/L Chloride 105 (98-107) mmol/L Carbon Dioxide 24 (22-30) mmol/L Anion Gap 11 mmol/L BUN 7 (7-17) mg/dL Creatinine 0.74 (0.52-1.04) mg/dL Est GFR (CKD-EPI)AfAm >90 (>60 ml/min/1.73 sqM) Est GFR (CKD-EPI)NonAf >90 (>60 ml/min/1.73 sqM) Glucose 126 H (74-99) mg/dL Lactic Ac Sepsis Rflx Plasma Lactic Acid Aurelio (0.7-2.0) mmol/L Calcium 10.9 H (8.4-10.2) mg/dL Total Bilirubin 0.4 (0.2-1.3) mg/dL AST 25 (14-36) U/L ALT 20 (4-34) U/L Alkaline Phosphatase 56 (38-126) U/L Total Protein 7.6 (6.3-8.2) g/dL Albumin 4.4 (3.5-5.0) g/dL Lipase 728 H (23-300) U/L Urine Color Yellow Urine Appearance Cloudy H (Clear) Urine pH 7.0 (5.0-8.0) Ur Specific Mathews 1.013 (1.001-1.035) Urine Protein Negative (Negative) Urine Glucose (UA) Negative (Negative) Urine Ketones Negative (Negative) Urine Blood Moderate H (Negative) Urine Nitrite Negative (Negative) Urine Bilirubin Negative (Negative) Urine Urobilinogen <2.0 (<2.0) mg/dL Ur Leukocyte Esterase Trace H (Negative) Urine RBC 7 H (0-5) /hpf Urine WBC 3 (0-5) /hpf Ur Squamous Epith Cells 5 H (0-4) /hpf Calcium Oxalate Crystal Many H (None) /hpf Urine Bacteria Occasional H (None) /hpf Urine Mucus Occasional H (None) /hpf Urine Yeast (Budding) Few H (None) /hpf 08/09/21 08/09/21 Range/Units 20:38 21:07 WBC (3.8-10.6) k/uL RBC (3.80-5.40) m/uL Hgb (11.4-16.0) gm/dL Hct (34.0-46.0) % MCV (80.0-100.0) fL MCH (25.0-35.0) pg MCHC (31.0-37.0) g/dL RDW (11.5-15.5) % Plt Count (150-450) k/uL MPV Neutrophils % % Lymphocytes % % Monocytes % % Eosinophils % % Basophils % % Neutrophils # (1.3-7.7) k/uL Lymphocytes # (1.0-4.8) k/uL Monocytes # (0-1.0) k/uL Eosinophils # (0-0.7) k/uL Basophils # (0-0.2) k/uL Sodium (137-145) mmol/L Potassium (3.5-5.1) mmol/L Chloride (98-107) mmol/L Carbon Dioxide (22-30) mmol/L Anion Gap mmol/L BUN (7-17) mg/dL Creatinine (0.52-1.04) mg/dL Est GFR (CKD-EPI)AfAm (>60 ml/min/1.73 sqM) Est GFR (CKD-EPI)NonAf (>60 ml/min/1.73 sqM) Glucose (74-99) mg/dL Lactic Ac Sepsis Rflx Y Plasma Lactic Acid Aurelio 2.2 H* (0.7-2.0) mmol/L Calcium (8.4-10.2) mg/dL Total Bilirubin (0.2-1.3) mg/dL AST (14-36) U/L ALT (4-34) U/L Alkaline Phosphatase (38-126) U/L Total Protein (6.3-8.2) g/dL Albumin (3.5-5.0) g/dL Lipase (23-300) U/L Urine Color Urine Appearance (Clear) Urine pH (5.0-8.0) Ur Specific Mathews (1.001-1.035) Urine Protein (Negative) Urine Glucose (UA) (Negative) Urine Ketones (Negative) Urine Blood (Negative) Urine Nitrite (Negative) Urine Bilirubin (Negative) Urine Urobilinogen (<2.0) mg/dL Ur Leukocyte Esterase (Negative) Urine RBC (0-5) /hpf Urine WBC (0-5) /hpf Ur Squamous Epith Cells (0-4) /hpf Calcium Oxalate Crystal (None) /hpf Urine Bacteria (None) /hpf Urine Mucus (None) /hpf Urine Yeast (Budding) (None) /hpf Disposition Clinical Impression: Chronic pancreatitis, Abdominal pain Disposition: ADMITTED IP TO THIS HOSP Condition: Stable Is patient prescribed a controlled substance at d/c from ED?: No Decision to Admit Reason: Admit from EC Decision Date: 08/09/21 Decision Time: 23:35
[2021-08-09] MEDS ORDERED: SODIUM CHLORIDE 0.9% 1,000 ML IV SCH (23:45)
[2021-08-10] MEDS ORDERED: DICYCLOMINE 10 MG CAP PO PRN (01:00)
--- NOTE | 2021-08-10 01:19 | P.HPIM ---
History of Present Illness H&P Date: 08/10/21 Chief Complaint: abd pain 30 old female with recurrent pancreatitis Patient comes in complaining of one day history of epigastric abdominal pain radiating to the left side., Describes severe 9 out of 10 in severity associated with couple episodes of vomiting nonbilious nonbloody. Denies any urinary changes or vaginal discharge denies any fevers or chills denies any cou gh chest pain or trouble breathing denies any changes in her bowel habits. Denies any GI bleeding. Patient has recurrent episodes acute pancreatitis. She had her gallbladder removed about 3 weeks ago. In the ED blood work showed elevated lipase denies any alcohol drug abuse or smoking Review of Systems Pertinent positives as noted in HPI. All other systems were reviewed and are negative Past Medical History Past Medical History: Asthma, Diabetes Mellitus, GERD/Reflux Additional Past Medical History / Comment(s): migraines, degenerative disk disease, endometriosis, lupus, pancreatitis, DM2- diet controlled History of Any Multi-Drug Resistant Organisms: None Reported Past Surgical History: Orthopedic Surgery Additional Past Surgical History / Comment(s): laparoscopc surgery for endometriosis, cyst removed from left foot, EGD, Past Anesthesia/Blood Transfusion Reactions: Previous Problems w/ Anesthesia Additional Past Anesthesia/Blood Transfusion Reaction / Comment(s): hard to wake up for 48-72 hours after laparoscopic surgery-was in hosp. for 3 days Past Psychological History: Anxiety, Depression, PTSD Smoking Status: Never smoker Past Alcohol Use History: None Reported Past Drug Use History: Marijuana - Past Family History Mother Family Medical History: No Reported History Additional Family Medical History / Comment(s): hx migraines Father Family Medical History: Coronary Artery Disease (CAD), Hypertension Additional Family Medical History / Comment(s): ddd, alcoholism & drug use Medications and Allergies Home Medications Medication Instructions Recorded Confirmed Type Fenofibrate [Lofibra] 160 mg PO DAILY@2100 07/02/21 07/30/21 History Midodrine HCl 5 mg PO BID PRN 07/02/21 07/30/21 History hydrOXYzine pamoate [hydrOXYzine 25 mg PO TID PRN 07/02/21 07/30/21 History PAMOATE] metFORMIN HCL 500 mg PO BID@0800,1700 07/02/21 07/30/21 History ARIPiprazole IM SYRINGE [Abilify 400 mg IM Q30D 07/28/21 07/30/21 History Maintena Syringe] Acetaminophen Tab [Tylenol] 1,000 mg PO Q6HR PRN 07/28/21 07/30/21 History Desvenlafaxine [Desvenlafaxine ER] 50 mg PO DAILY@0800 07/28/21 07/30/21 History Dicyclomine [Bentyl] 10 mg PO TID PRN 07/28/21 07/30/21 History Ondansetron Odt [Zofran ODT] 4 mg PO Q4H PRN 07/28/21 07/30/21 History QUEtiapine [SEROquel] 400 mg PO HS@2100 07/28/21 07/30/21 History busPIRone HCL 15 mg PO QID@08,12,16,21 07/28/21 07/30/21 History traZODone HCL [Desyrel] 250 mg PO HS@2100 07/28/21 07/30/21 History Ondansetron [Zofran] 4 mg PO Q8HR PRN 10 Days #20 tab 08/03/21 Rx Allergies Allergy/AdvReac Type Severity Reaction Status Date / Time bee pollen Allergy Severe Anaphylaxis Verified 08/09/21 19:29 haloperidol [From Haldol] Allergy Severe QUIT Verified 08/09/21 19:29 BREATHING haloperidol lactate Allergy Severe QUIT Verified 08/09/21 19:29 [From Haldol] BREATHING latex Allergy Severe RASH-THROAT Verified 08/09/21 19:29 CLOSES murri[place] Allergy Anaphylaxis Verified 08/09/21 19:29 coconut Allergy Anaphylaxis Verified 08/09/21 19:29 morphine Allergy Rash/Hives Verified 08/09/21 19:29 pineapple Allergy Anaphylaxis Verified 08/09/21 19:29 prednisone Allergy THROAT Verified 08/09/21 19:29 SWELLS spider venom Allergy Swelling Verified 08/09/21 19:29 Sulfa (Sulfonamide Allergy THROAT Verified 08/09/21 19:29 Antibiotics) SWELLS venom-wasp Allergy Swelling Verified 08/09/21 19:29 venom-wasp protein Allergy Swelling Verified 08/09/21 19:29 promethazine HCl AdvReac Severe Nausea & Verified 08/09/21 19:29 [From Phenergan] Vomiting tramadol AdvReac Severe Nausea & Verified 08/09/21 19:29 Vomiting amoxicillin AdvReac Nausea & Verified 08/09/21 19:29 Vomiting ANTS AdvReac Mild Anaphylaxis Uncoded 08/09/21 19:29 Physical Exam Vitals: Vital Signs Temp Pulse Resp BP Pulse Ox 08/10/21 00:55 22 08/09/21 22:29 94 20 129/90 97 08/09/21 19:25 97.6 F 104 H 22 130/94 99 Intake and Output 08/09/21 08/09/21 08/10/21 14:59 22:59 06:59 Other: Voiding Method Toilet Weight 81.647 kg Constitutional: No acute distress, conversant, pleasant Eyes: Anicteric sclerae, moist conjunctiva, Pupils equal round reactive to light ENMT: NC/AT Oropharynx clear, no erythema, or exudates Neck: Supple no masses, or JVD No carotid bruits No thyromegaly Lungs: Clear to auscultation Clear to percussion Normal respiratory effort, no accessory muscle use Cardiovascular: Heart regular in rate and rhythm, No murmurs, gallops, or rubs No peripheral edema Abdominal: Soft tenderness to palpation of the epigastric region no guarding, rebound or rigidity Abdomen moving with respiration Normoactive bowel sounds No hepatomegaly, No splenomegaly No palpable mass No abdominal wall hernia noted Skin: Normal temperature, tone, texture, turgor No induration No subcutaneous nodules No rash, lesions No ulcers Extremities: No digital cyanosis No clubbing Pedal pulses intact and symmetrical Radial pulses intact and symmetrical No calf tenderness Psychiatric: Alert and oriented to person, place and time Appropriate affect fair judgement Neuro Muscles Strength 5/5 in all 4 extremities Sensation to light touch grossly present throughout Cranial nerves II-XII grossly intact No focal sensory deficits Lymphatics: no palpable cervical or supraclavicular , or inguinal lymph nodes Results CBC & Chem 7: 08/09/21 20:38 08/09/21 20:38 Labs: Abnormal Lab Results - Last 24 Hours (Table) 08/09/21 08/09/21 08/09/21 Range/Units 20:38 20:38 20:38 Glucose 126 H (74-99) mg/dL Plasma Lactic Acid Aurelio 2.2 H* (0.7-2.0) mmol/L Calcium 10.9 H (8.4-10.2) mg/dL Lipase 728 H (23-300) U/L Urine Appearance Cloudy H (Clear) Urine Blood Moderate H (Negative) Ur Leukocyte Esterase Trace H (Negative) Urine RBC 7 H (0-5) /hpf Ur Squamous Epith Cells 5 H (0-4) /hpf Calcium Oxalate Crystal Many H (None) /hpf Urine Bacteria Occasional H (None) /hpf Urine Mucus Occasional H (None) /hpf Urine Yeast (Budding) Few H (None) /hpf Assessment and Plan Assessment: acute recurrent pancreatitis NPO pain control with opioids IVF hydration aggressive with LR at 150cc per hour consider referral to hospital with GI service to establish care and follow up monitor vital signs follow up labs s/p lap yong 3 weeks ago DM diet controlled full code DVT PPX heparin sc tid GI PPX ppi anticipated length of stay > 2 midnights
[2021-08-10] MEDS: PANTOPRAZOLE 40 MG/10 ML VIAL IV SCH ×2 (01:31→08:17)
[2021-08-10] MEDS: LACTATED RINGERS 1,000 ML IV SCH ×4 (01:31→21:15)
[2021-08-10] MEDS ORDERED: NITROFURANTOIN MONOHYD/M-CRYST 100 MG CAP PO STA (02:07)
[2021-08-10] MEDS ORDERED: FLUCONAZOLE 150 MG TAB PO STA (02:07)
[2021-08-10] MEDS: HYDROmorphone 0.5 MG/0.5 ML SYRINGE IVP PRN ×7 (02:20→21:47)
[2021-08-10] MEDS ORDERED: diphenhydrAMINE 50 MG/ML 1 ML VIAL IVP STA (03:10)
[2021-08-10] MEDS: ONDANSETRON 4 MG/2 ML VIAL IVP PRN ×3 (05:05→21:48)
[2021-08-10 06:22] LABS: Basophils % (A) 0 %; Eosinophils # (A) 0.1 k/uL (0-0.7); Eosinophils % (A) 2 %; HCT 38.1 % (34.0-46.0); HGB 12.5 gm/dL (11.4-16.0); Lymphocytes # (A) 2.1 k/uL (1.0-4.8); Lymphocytes % (A) 46 %; MCH 32.9 pg (25.0-35.0); MCHC 32.9 g/dL (31.0-37.0); MCV 99.8 fL (80.0-100.0); Mean Platelet Volume 7.6; Monocytes # (A) 0.2 k/uL (0-1.0); Monocytes % (A) 4 %; Neutrophils # (A) 2.1 k/uL (1.3-7.7); Neutrophils % (A) 46 %; Platelet Count 313 k/uL (150-450); RBC 3.81 m/uL (3.80-5.40); RDW 14.1 % (11.5-15.5); WBC 4.6 k/uL (3.8-10.6)
[2021-08-10 06:29] LABS: African American GFR (CKD) >90 (>60 ml/min/1.73 sqM); Anion Gap 7 mmol/L; Blood Urea Nitrogen 6 mg/dL (7-17); Calcium 9.8 mg/dL (8.4-10.2); Carbon Dioxide 24 mmol/L (22-30); Chloride 107 mmol/L (98-107); Glucose 92 mg/dL (74-99); Lipase 396 U/L (23-300); Non-African American GFR(CKD) >90 (>60 ml/min/1.73 sqM); Sodium 138 mmol/L (137-145)
[2021-08-10] MEDS: busPIRone HCl 5 MG TAB PO SCH ×4 (08:17→21:07)
[2021-08-10] MEDS: HEPARIN SODIUM,PORCINE/PF 5,000 UNIT/0.5 ML SYRINGE SQ SCH ×3 (08:17→21:07)
[2021-08-10] MEDS: KETOROLAC 15 MG/ML 1 ML VIAL IVP PRN ×2 (09:58→21:06)
--- NOTE | 2021-08-10 11:58 | P.PN ---
Progress Note - Text Progress Note Date: 08/10/21 Seen and examined, recurrent acute ''idiopathic'' pancreatitis however looking back at the records seems like she had high TG in the past and borderline diabetes, likely has metabolic syndrome. Will order stat lipid panel, A1c and insulin sliding scale. Will also get MRCP due to the recurrent nature of this.
[2021-08-10 13:03] LABS: Glucose,Whole Blood 87 mg/dL (75-99)
[2021-08-10] MEDS: INSULIN ASPART (NovoLOG) 100 UNIT/ML VIAL SQ SCH ×3 (13:03→20:55)
[2021-08-10 16:14] LABS: Chol/HDL Ratio 6.31 Ratio; LDL Cholesterol,Calculated 96.7 mg/dL (0.0-131.0)
[2021-08-10 16:25] LABS: Glucose,Whole Blood 83 mg/dL (75-99)
[2021-08-10 20:45] LABS: Glucose,Whole Blood 127 mg/dL (75-99)
[2021-08-10] MEDS ORDERED: QUEtiapine 400 MG TAB PO SCH (21:00)
[2021-08-10] MEDS ORDERED: traZODone HCL 50 MG TAB PO SCH (21:00)
[2021-08-11] MEDS: HYDROmorphone 0.5 MG/0.5 ML SYRINGE IVP PRN ×3 (02:10→11:45)
[2021-08-11] MEDS: LACTATED RINGERS 1,000 ML IV SCH ×3 (02:11→15:06)
[2021-08-11 03:38] VITALS: TEMP 98.1
[2021-08-11] MEDS: KETOROLAC 15 MG/ML 1 ML VIAL IVP PRN (03:42)
[2021-08-11 07:16] LABS: Glucose,Whole Blood 111 mg/dL (75-99)
[2021-08-11] MEDS: INSULIN ASPART (NovoLOG) 100 UNIT/ML VIAL SQ SCH ×2 (07:18→12:20)
[2021-08-11] MEDS: busPIRone HCl 5 MG TAB PO SCH ×2 (07:20→11:45)
[2021-08-11] MEDS: PANTOPRAZOLE 40 MG/10 ML VIAL IV SCH (07:21)
[2021-08-11] MEDS: HEPARIN SODIUM,PORCINE/PF 5,000 UNIT/0.5 ML SYRINGE SQ SCH ×2 (07:21→15:06)
[2021-08-11 09:13] LABS: Basophils # (A) 0.03 X 10*3/uL (0.00-0.10); Basophils % (A) 0.6 %; Eosinophils # (A) 0.15 X 10*3/uL (0.04-0.35); HCT 35.6 % (37.2-46.3); HGB 11.4 g/dL (12.0-15.0); Immature Grans, Automated 0.2 %; Lymphocytes # (A) 2.83 X 10*3/uL (0.90-5.00); Lymphocytes % (A) 56.9 %; MCH 31.9 pg (27.0-32.0); MCV 99.7 fL (80.0-97.0); Mean Platelet Volume 10.8 fL (9.5-12.2); Monocytes # (A) 0.27 X 10*3/uL (0.20-1.00); Monocytes % (A) 5.4 %; NRBC Per 100 WBC 0 /100 WBCS (0.0-0.0); Neutrophils # (A) 1.68 X 10*3/uL (1.80-7.70); Neutrophils % (A) 33.9 %; Platelet Count 284 X 10*3/uL (140-440); RBC 3.57 X 10*6/uL (4.10-5.20); RDW 13.3 % (11.5-14.5); WBC 4.97 X 10*3/uL (4.50-10.00)
[2021-08-11 09:32] LABS: ALT 19 U/L (8-44); AST 26 U/L (13-35); African American GFR (CKD) 142.8 (60.0-200.0); Albumin 3.6 g/dL (3.8-4.9); Albumin/Globulin Ratio 1.57 (1.60-3.17); Alkaline Phosphatase 48 U/L (41-126); BUN/Creat Ratio 8.33 Ratio (12.00-20.00); Calcium 9.7 mg/dL (8.7-10.3); Carbon Dioxide 22.2 mmol/L (20.0-27.5); Chloride 104 mmol/L (96-109); Globulin 2.3 g/dL (1.6-3.3); Glucose 127 mg/dL (70-110); Lipase 69 U/L (14-63); Non-African American GFR(CKD) 123.2 (60.0-200.0); Potassium 4.1 mmol/L (3.5-5.5); Sodium 138 mmol/L (135-145); Total Bilirubin <0.15 mg/dL (0.30-1.20); Total Protein 5.9 g/dL (6.2-8.2)
[2021-08-11 12:06] LABS: Glucose,Whole Blood 113 mg/dL (75-99)
[2021-08-11 14:28] VITALS: BP 116/77; PULSE 63; RESP 18
--- NOTE | 2021-08-11 22:37 | P.DS ---
Providers Date of admission: 08/11/21 12:22 Attending physician: Lizbet Magallanes Primary care physician: [facility] Course: Final Diagnosis Epigastric abdominal pain secondary to history of recurrent pancreatitis Recent cholecystectomy Chronic pancreatitis possible autoimmune with ongoing work up at [facility] Diabetes mellitus with A1C of 5.9 this admission Chronic hypertriglyceridemia History of gastroesophageal Reflux Disease History of asthma not in acute exacerbation History of migraines History of lupus History of endometriosis with surgery History of anxiety /depression/ PTSD Full Code Discharge Disposition Patient is tolerating diet, stable for discharge home and to follow up with surgeon, GI specialist and primary care in the office. Hospital Course This is a 30 year old female with known history of chronic pancreatitis with multiple hospital admissions for the same. Presents with epigastric abdominal pain with radiation to the left upper quadrant, also with a few episodes of vomiting, nonbiluous, no blood noted. Denies melena. Denies chest pain, shortness of breath, cough. Additional medical history includes diabetes mellitus type 2 which patient is on metformin, elevated triglyceride level, GERD, asthma, migraines, lupus, endometriosis, anxiety, depression, PTSD. 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 She was told to follow up for endoscopic ultrasound which she has not done yet. Patient was discharged from this hospital for pancreatitis August 03 of this year as well. She was evaluated by GI services during that hospital stay and was instructed to follow up with [facility] for EUS and further work up regarding possible autoimmune pancreatitis. On admission blood count panel unremarkable Chemistry panel showing blood glucose 126, calcium 10.9, liver enzymes norrmal. Lipase 728. Cholesterol panel completed showing triglycerides 295, LDL 96.7, HDL 29.30, cholesterol 185. Urinalysis showing cloudy urine, moderate blood, many calcium oxalate, urine bacteria occasional, urine mucus occasional, few yeast, trace leukocyte esterase. Urine culture not done. KUB showing nonacute abdomen Renal ultrasound showing no sign of renal mass or obstruction, no evidence of bladder mass, no hydronephrosis. Patient was admitted to hospital for monitoring. After NPO diet, and pain management, lipase has improved to 69. No further episodes of emesis. 08/11/2021 Patient evaluated today resting in bed. Appears comfortable, no acute distress. She states she is still having abdominal pain and requesting increase in pain medication. She is tolerating some diet. No chest pain, shortness of breath. No vomiting or diarrhea. She was ordered to undergo MRCP today however she states she could not tolerate the exam and it was not completed. As lipase has improved, vital signs are stable, patient will be discharged and will need to follow up with her surgeon and GI specialist through [facility]. Lungs are clear, S1 S2 auscultated, abdomen is soft, normoactive bowel sounds, no tenderness on palpation, no guarding with palpation as well. Focal neurological exam is negative. Hemoglobin today 11.4, which is consistent with baseline, stable, no evidence for acute bleeding. Blood glucose 113. Liver enzymes normal, lipase 69. She is afebrile, heart rate 63, blood pressure 116/77, 99% on room air. Please see medication reconciliation for a list of current medication. Thank you for allowing us to participate in the care of this patient. The impression and plan of care has been dictated by Marah Pendleton, Nurse Practitioner as directed. Dr. Elpidio MD I have performed a history and physical examination and medical decision making of this patient, discussed the same with the dictator, and agree with the dictators assessment and plan as written, documented as a scribe. Based on total visit time, I have performed more than 50% of this visit. Patient Condition at Discharge: Stable Plan - Discharge Summary New Discharge Prescriptions: Continue metFORMIN HCL 500 mg PO BID@0800,1700 Fenofibrate [Lofibra] 160 mg PO HS Acetaminophen Tab [Tylenol] 1,000 mg PO Q6H PRN PRN Reason: Pain traZODone HCL [Desyrel] 250 mg PO HS Desvenlafaxine [Desvenlafaxine ER] 50 mg PO DAILY@0800 QUEtiapine [SEROquel] 400 mg PO HS ARIPiprazole IM SYRINGE [Abilify Maintena Syringe] 400 mg IM Q30D Ibuprofen [Motrin] 600 mg PO TID PRN PRN Reason: Mild Pain Midodrine HCl 5 mg PO BID PRN PRN Reason: SBP less than 100 hydrOXYzine pamoate [hydrOXYzine PAMOATE] 25 mg PO TID PRN PRN Reason: Anxiety Dicyclomine [Bentyl] 10 mg PO TID PRN PRN Reason: abodiminal cramping busPIRone HCL 15 mg PO QID@08,12,16,21 Ondansetron [Zofran] 4 mg PO Q8H PRN PRN Reason: Nausea Discontinued Ondansetron Odt [Zofran ODT] 4 mg PO Q4H PRN PRN Reason: Nausea Acetaminophen-Codeine 300-30mg [Tylenol w/codeine #3] 1 tab PO Q4H PRN PRN Reason: Breakthrough Pain Discharge Medication List Fenofibrate [Lofibra] 160 mg PO HS 07/02/21 [History] Midodrine HCl 5 mg PO BID PRN 07/02/21 [History] hydrOXYzine pamoate [hydrOXYzine PAMOATE] 25 mg PO TID PRN 07/02/21 [History] metFORMIN HCL 500 mg PO BID@0800,1700 07/02/21 [History] ARIPiprazole IM SYRINGE [Abilify Maintena Syringe] 400 mg IM Q30D 07/28/21 [History] Acetaminophen Tab [Tylenol] 1,000 mg PO Q6H PRN 07/28/21 [History] Desvenlafaxine [Desvenlafaxine ER] 50 mg PO DAILY@0800 07/28/21 [History] Dicyclomine [Bentyl] 10 mg PO TID PRN 07/28/21 [History] QUEtiapine [SEROquel] 400 mg PO HS 07/28/21 [History] busPIRone HCL 15 mg PO QID@08,12,16,21 07/28/21 [History] traZODone HCL [Desyrel] 250 mg PO HS 07/28/21 [History] Ibuprofen [Motrin] 600 mg PO TID PRN 08/10/21 [History] Ondansetron [Zofran] 4 mg PO Q8H PRN 08/10/21 [History] Follow up Appointment(s)/Referral(s): Isi Carolina MD [Primary Care Provider] - 1-2 days Katarzyna Bocanegra MD [STAFF PHYSICIAN] - 2 Weeks Ambulatory/Diagnostic Orders: Lipase [LAB.AMB] Time Frame: 2 Days, Location: None Selected Patient Instructions/Handouts: Pancreatitis (DC) Activity/Diet/Wound Care/Special Instructions: Continue to increase diet as tolerated Follow up with Dr Aldo Bocanegra outpatient Follow up with surgeon as recommended for recent gall bladder removal Repeat lipase in 2-3 days Discharge Disposition: HOME SELF-CARE
== END 2021-08-11 15:30 | disposition home or self-care (01) ==
LOC: EC 19:21 → 6NMEDSUR 23:35 → OBSVTOIN 08-11 12:22 → INTOOBSV 08-11 12:22 → UNDODISIN 08-11 15:30
PROVIDERS: ADMIT Internal Medicine; ATTEND Internal Medicine
DX: K85.00 Idiopathic acute pancreatitis without necrosis or infection (principal); K86.1 Other chronic pancreatitis; J45.909 Unspecified asthma, uncomplicated; F43.10 Post-traumatic stress disorder, unspecified; F32.A Depression, unspecified; K21.9 Gastro-esophageal reflux disease without esophagitis; D89.89 Other specified disorders involving the immune mechanism, not elsewhere classified; M32.9 Systemic lupus erythematosus, unspecified; E78.1 Pure hyperglyceridemia; E11.9 Type 2 diabetes mellitus without complications; M51.9 Unspecified thoracic, thoracolumbar and lumbosacral intervertebral disc disorder; N80.9 Endometriosis, unspecified; Z79.84 Long term (current) use of oral hypoglycemic drugs; Z79.899 Other long term (current) drug therapy; Z91.040 Latex allergy status; Z91.018 Allergy to other foods; Z88.2 Allergy status to sulfonamides; Z88.5 Allergy status to narcotic agent; Z88.1 Allergy status to other antibiotic agents; Z88.0 Allergy status to penicillin; Z91.030 Bee allergy status; Z90.49 Acquired absence of other specified parts of digestive tract; Z86.69 Personal history of other diseases of the nervous system and sense organs; Z82.49 Family history of ischemic heart disease and other diseases of the circulatory system; Z82.69 Family history of other diseases of the musculoskeletal system and connective tissue; Z81.1 Family history of alcohol abuse and dependence; Z81.3 Family history of other psychoactive substance abuse and dependence
CPT/HCPCS: 99285; 96376 ×2; 96361 ×2; 96372 ×2; 96375 ×2; 96374; 36415; 80061; 80053 ×2; 80048; 83605; 83690 ×3; 83735; 85025 ×3; 81001; 83036; 74018; 76770; G0378 ×2; J1200; J2405 ×2; J1885 ×3; C9113 ×2; J1170 ×2; J1644 ×2

== ENCOUNTER 2021-08-14 19:37 | Emergency (ER) | payer OTHER ==
[2021-08-14 19:44] VITALS: RESP 18; TEMP 98.1
--- NOTE | 2021-08-14 20:02 | ED ---
General Adult HPI - General Chief complaint: Fall Stated complaint: Fall Time Seen by Provider: 08/14/21 19:39 Source: patient, EMS Mode of arrival: EMS - History of Present Illness Initial comments: Dictation was produced using [employer] dictation software. please excuse any grammatical, word or spelling errors. Chief Complaint: 30-year-old female presents with wrist pain, head pain and neck pain after fall History of Present Illness: She 30-year-old female she is well-known to emergency department for multiple visitations for myriad of complaints. She is here or days ago. This is her seventh visit in the last 4 weeks. Patient states she is here because she has had pain, neck pain and left wrist pain. She states she slipped on a mass that was on the floor and she fell backwards. She is not sure she lost consciousness. She does not take any anticoagulation medications. No numbness or paresthesias. States pain is severe. The ROS documented in this emergency department record has been reviewed and confirmed by me. Those systems with pertinent positive or negative responses have been documented in the HPI. All other systems are other negative and/or noncontributory. PHYSICAL EXAM: General Impression: Alert and oriented x3, acute distress secondary pain HEENT: Normocephalic atraumatic, extra-ocular movements intact, pupils equal and reactive to light bilaterally, mucous membranes moist. Cardiovascular: Heart regular rate and rhythm Chest: Able to complete full sentences, no retractions, no tachypnea Abdomen: abdomen soft, non-tender, non-distended, no organomegaly Musculoskeletal: Pulses present and equal in all extremities, no peripheral edema Left wrist: No gross abnormalities Motor: no focal deficits noted Neurological: CN II-XII grossly intact, no focal motor or sensory deficits noted Skin: Intact with no visualized rashes Psych: Normal affect and mood ED course: 30-year-old female presents to the emergency Department with left wrist pain, head pain and neck pain after fall. Vital signs upon arrival are within acceptable limits. Computed tomography scan of the head and C-spine, thoracic spine CT shows no acute processes. Wrist x-rays unremarkable. Patient does not have any tenderness around the scaphoid. No tenderness with axial loading the thumb, no pain over the scaphoid tubercle or anatomic snuffbox. Patient wrist injury is likely secondary to strain versus contusion. Patient be discharged otherwise instructed to follow-up with primary care doctor. - Related Data Home Medications Medication Instructions Recorded Confirmed Fenofibrate [Lofibra] 160 mg PO HS@2100 07/02/21 08/14/21 Midodrine HCl 5 mg PO BID PRN 07/02/21 08/14/21 metFORMIN HCL 500 mg PO BID@0800,1700 07/02/21 08/14/21 ARIPiprazole IM SYRINGE [Abilify 400 mg IM Q30D 07/28/21 08/14/21 Maintena Syringe] Acetaminophen Tab [Tylenol] 1,000 mg PO Q6H PRN 07/28/21 08/14/21 Desvenlafaxine [Desvenlafaxine ER] 50 mg PO DAILY@0800 07/28/21 08/14/21 Dicyclomine [Bentyl] 10 mg PO TID PRN 07/28/21 08/14/21 QUEtiapine [SEROquel] 400 mg PO HS@2100 07/28/21 08/14/21 busPIRone HCL 15 mg PO QID@08,12,16,21 07/28/21 08/14/21 traZODone HCL [Desyrel] 250 mg PO HS@2100 07/28/21 08/14/21 Ibuprofen [Motrin] 600 mg PO TID PRN 08/10/21 08/14/21 Ondansetron [Zofran] 4 mg PO Q8H PRN 08/10/21 08/14/21 Azithromycin [Zithromax] 500 mg PO DAILY 08/14/21 08/14/21 Allergies Allergy/AdvReac Type Severity Reaction Status Date / Time bee pollen Allergy Severe Anaphylaxis Verified 08/10/21 10:53 haloperidol [From Haldol] Allergy Severe QUIT Verified 08/10/21 10:53 BREATHING haloperidol lactate Allergy Severe QUIT Verified 08/10/21 10:53 [From Haldol] BREATHING latex Allergy Severe RASH-THROAT Verified 08/10/21 10:53 CLOSES [place] Allergy Anaphylaxis Verified 08/10/21 10:53 coconut Allergy Anaphylaxis Verified 08/10/21 10:53 morphine Allergy Rash/Hives Verified 08/10/21 10:53 pineapple Allergy Anaphylaxis Verified 08/10/21 10:53 prednisone Allergy THROAT Verified 08/10/21 10:53 SWELLS spider venom Allergy Swelling Verified 08/10/21 10:53 Sulfa (Sulfonamide Allergy THROAT Verified 08/10/21 10:53 Antibiotics) SWELLS venom-wasp Allergy Swelling Verified 08/10/21 10:53 venom-wasp protein Allergy Swelling Verified 08/10/21 10:53 promethazine HCl AdvReac Severe Nausea & Verified 08/10/21 10:53 [From Phenergan] Vomiting tramadol AdvReac Severe Nausea & Verified 08/10/21 10:53 Vomiting amoxicillin AdvReac Nausea & Verified 08/10/21 10:53 Vomiting ANTS AdvReac Mild Anaphylaxis Uncoded 08/10/21 10:53 Review of Systems ROS Statement: Those systems with pertinent positive or pertinent negative responses have been documented in the HPI. ROS Other: All systems not noted in ROS Statement are negative. Past Medical History Past Medical History: Asthma, Diabetes Mellitus, GERD/Reflux Additional Past Medical History / Comment(s): migraines, degenerative disk disease, endometriosis, lupus, pancreatitis, DM2- diet controlled History of Any Multi-Drug Resistant Organisms: None Reported Past Surgical History: Cholecystectomy, Orthopedic Surgery Additional Past Surgical History / Comment(s): laparoscopc surgery for endometriosis, cyst removed from left foot, EGD, Past Anesthesia/Blood Transfusion Reactions: Previous Problems w/ Anesthesia Additional Past Anesthesia/Blood Transfusion Reaction / Comment(s): hard to wake up for 48-72 hours after laparoscopic surgery-was in hosp. for 3 days Past Psychological History: Anxiety, Depression, PTSD Smoking Status: Vaper Past Alcohol Use History: None Reported Past Drug Use History: Marijuana - Past Family History Mother Family Medical History: No Reported History Additional Family Medical History / Comment(s): hx migraines Father Family Medical History: Coronary Artery Disease (CAD), Hypertension Additional Family Medical History / Comment(s): ddd, alcoholism & drug use Course Vital Signs 08/14/21 19:39 Temperature 98.1 F Pulse Rate 106 H Respiratory 18 Rate Blood Pressure 143/111 O2 Sat by Pulse 99 Oximetry Disposition Clinical Impression: Head contusion, Neck strain, Wrist sprain Disposition: HOME SELF-CARE Condition: Good Instructions (If sedation given, give patient instructions): Fall Prevention (ED) Is patient prescribed a controlled substance at d/c from ED?: No Referrals: Isi Carolina MD [Primary Care Provider] - 1-2 days
--- NOTE | 2021-08-14 21:01 | CT ---
EXAMINATION TYPE: CT brain cspine wo con CT DLP: 1552.3 mGycm, Automated exposure control for dose reduction was used. DATE OF EXAM: 08/14/2021 8:37 PM COMPARISON: CT brain 07/27/2021. CLINICAL INDICATION:Female, 30 years old with history of fall; TECHNIQUE: Brain: Multiple axial CT images of the brain were obtained without IV contrast. Cspine: Axial CT images from the skull base to the inferior aspect of T2 we obtained without intraven ous contrast. Coronal and sagittal reformatted images were also reviewed. FINDINGS: Brain: Extra-axial spaces: No abnormal extra-axial fluid collections. Ventricular system: Within normal limits Cerebral parenchyma: No acute intraparenchymal hemorrhage or mass effect. The roberts-white junction is well differentiated. Cerebellum: Unremarkable. Mass effect: No evidence of midline shift. Intracranial vasculature: unremarkable Soft tissues: Normal. Calvarium/osseous structures: No depressed skull fracture. Paranasal sinuses and mastoid air cells: Clear. Visualized orbits: Orbital contents are intact. Cervical spine: Fracture: None. Osseous structures: Unremarkable Vertebral alignment: Within normal limits. Spinal canal/Neural Foramina: No evidence of significant spinal canal narrowing. No evidence for sign ificant neural foraminal stenosis. Neck soft tissues: Prevertebral soft tissues are within normal limits. Other: The airway is patent. The lung apices are clear. IMPRESSION: 1. No acute intracranial process. 2. No evidence of cervical spine fracture.
--- NOTE | 2021-08-14 21:02 | XR ---
EXAMINATION TYPE: XR wrist complete LT DATE OF EXAM: 08/14/2021 8:37 PM INDICATION: Patient age:Female; 30 years old; Reason for study: fall;. COMPARISON: Left wrist and 30/09/2019 TECHNIQUE: Frontal, lateral, oblique and scaphoid views. FINDINGS: No acute osseous pathology, joint dislocation, or joint effusion. No evidence of any soft tissue swelling is seen. IMPRESSION: No acute osseous pathology.
--- NOTE | 2021-08-14 21:07 | CT ---
EXAMINATION TYPE: CT thoracic spine wo con CT DLP: 1429.2 mGycm, Automated exposure control for dose reduction was used. DATE OF EXAM: 08/14/2021 8:38 PM COMPARISON: None. CLINICAL INDICATION:Female, 30 years old with history of fall TECHNIQUE: Axial images of the thoracic spine were obtained without contrast. Coronal and sagittal re formats were performed. FINDINGS: The thoracic vertebral bodies have preserved heights and alignment. Intervertebral discs and osseous structures have normal appearance. Mild degeneration changes are seen throughout the spi ne. No evidence of extradural defects nor significant spinal canal narrowing at any thoracic vertebra l body level. IMPRESSION: No evidence of fracture. No spinal canal or neural foraminal stenosis is identified.
[2021-08-14] MEDS ORDERED: ACETAMINOPHEN TAB 500 MG TAB PO STA (21:15)
[2021-08-14 21:35] VITALS: BP 132/84; PULSE 84
== END 2021-08-14 21:34 | disposition home or self-care (01) ==
LOC: EC 19:37
DX: S63.502A Unspecified sprain of left wrist, initial encounter (principal); S16.1XXA Strain of muscle, fascia and tendon at neck level, initial encounter; S00.93XA Contusion of unspecified part of head, initial encounter; E11.9 Type 2 diabetes mellitus without complications; J45.909 Unspecified asthma, uncomplicated; K21.9 Gastro-esophageal reflux disease without esophagitis; F32.A Depression, unspecified; F41.9 Anxiety disorder, unspecified; F12.90 Cannabis use, unspecified, uncomplicated; F17.290 Nicotine dependence, other tobacco product, uncomplicated; Z79.84 Long term (current) use of oral hypoglycemic drugs; Z79.899 Other long term (current) drug therapy; W01.0XXA Fall on same level from slipping, tripping and stumbling without subsequent striking against object, initial encounter
CPT/HCPCS: 70450; 72125; 72128; 99284

== ENCOUNTER → 2021-08-14 | Outpatient (CLI) | payer OTHER | END | disposition home or self-care (01) | LOC: LABWHC1 15:46 | PROVIDERS: ATTEND Nurse Practitioner Family | DX: K85.90 Acute pancreatitis without necrosis or infection, unspecified (principal) | CPT/HCPCS: 36415; 83690 ==

== ENCOUNTER 2021-08-17 00:18 | Emergency (ER) | payer OTHER ==
[2021-08-17] MEDS ORDERED: HYDROmorphone 0.5 MG/0.5 ML SYRINGE IVP STA (06:24)
[2021-08-17] MEDS ORDERED: ONDANSETRON 4 MG/2 ML VIAL IVP STA (06:24)
--- NOTE | 2021-08-17 06:37 | XR ---
EXAMINATION TYPE: XR ankle complete LT DATE OF EXAM: 08/17/2021 COMPARISON: NONE HISTORY: Pain TECHNIQUE: 3 views FINDINGS: Ankle mortise is anatomic. I see no fracture nor dislocation. Joint spaces are fairly arlene l. There is small plantar calcaneal spur. IMPRESSION: Negative left ankle exam. No fracture seen.
[2021-08-17] MEDS ORDERED: HYDROmorphone 0.5 MG/0.5 ML SYRINGE IM STA ×2 (07:39→11:23)
[2021-08-17] MEDS ORDERED: diphenhydrAMINE 50 MG/ML 1 ML VIAL IM STA (08:25)
[2021-08-17] MEDS ORDERED: METOCLOPRAMIDE 5 MG/ML 2 ML VIAL IM PRN (08:25)
[2021-08-17] MEDS ORDERED: KETOROLAC 15 MG/ML 1 ML VIAL IM STA (08:25)
--- NOTE | 2021-08-17 10:41 | ED ---
Lower Extremity Injury HPI - General Chief Complaint: Extremity Injury, Lower Stated Complaint: Ankle pain Time Seen by Provider: 08/17/21 03:24 Source: patient, EMS, RN notes reviewed Mode of arrival: EMS Limitations: no limitations - History of Present Illness Initial Comments: This is a 30-year-old female who presents to the emergency department for left ankle pain following a fall. This patient is very well known to our emergency department and has had multiple visits in the last couple of weeks. Patient states that she was in the emergency department yesterday for dizziness and ended up leaving due to the prolonged wait. On her way out, she states that she fell due to the dizziness, landing on her left ankle. She has had left ankle pain since. Does report associated nausea with the dizziness. Also states that her dizziness is a continued problem and requests further workup for the recurrent dizziness. MD Complaint: ankle injury Onset/Timin -: days(s) - Related Data Home Medications Medication Instructions Recorded Confirmed Fenofibrate [Lofibra] 160 mg PO HS@209907/02/21 08/14/21 Midodrine HCl 5 mg PO BID PRN 07/02/21 08/14/21 metFORMIN HCL 500 mg PO BID@0800,1700 07/02/21 08/14/21 ARIPiprazole IM SYRINGE [Abilify 400 mg IM Q30D 07/28/21 08/14/21 Maintena Syringe] Acetaminophen Tab [Tylenol] 1,000 mg PO Q6H PRN 07/28/21 08/14/21 Desvenlafaxine [Desvenlafaxine ER] 50 mg PO DAILY@0800 07/28/21 08/14/21 Dicyclomine [Bentyl] 10 mg PO TID PRN 07/28/21 08/14/21 QUEtiapine [SEROquel] 400 mg PO HS@209907/28/21 08/14/21 busPIRone HCL 15 mg PO QID@08,12,16,21 07/28/21 08/14/21 traZODone HCL [Desyrel] 250 mg PO HS@2100 07/28/21 08/14/21 Ibuprofen [Motrin] 600 mg PO TID PRN 08/10/21 08/14/21 Ondansetron [Zofran] 4 mg PO Q8H PRN 08/10/21 08/14/21 Azithromycin [Zithromax] 500 mg PO DAILY 08/14/21 08/14/21 Allergies Allergy/AdvReac Type Severity Reaction Status Date / Time bee pollen Allergy Severe Anaphylaxis Verified 08/17/21 00:37 haloperidol [From Haldol] Allergy Severe QUIT Verified 08/17/21 00:37 BREATHING haloperidol lactate Allergy Severe QUIT Verified 08/17/21 00:37 [From Haldol] BREATHING latex Allergy Severe RASH-THROAT Verified 08/17/21 00:37 CLOSES [place] Allergy Anaphylaxis Verified 08/17/21 00:37 coconut Allergy Anaphylaxis Verified 08/17/21 00:37 morphine Allergy Rash/Hives Verified 08/17/21 00:37 pineapple Allergy Anaphylaxis Verified 08/17/21 00:37 prednisone Allergy THROAT Verified 08/17/21 00:37 SWELLS spider venom Allergy Swelling Verified 08/17/21 00:37 Sulfa (Sulfonamide Allergy THROAT Verified 08/17/21 00:37 Antibiotics) SWELLS venom-wasp Allergy Swelling Verified 08/17/21 00:37 venom-wasp protein Allergy Swelling Verified 08/17/21 00:37 promethazine HCl AdvReac Severe Nausea & Verified 08/17/21 00:37 [From Phenergan] Vomiting tramadol AdvReac Severe Nausea & Verified 08/17/21 00:37 Vomiting amoxicillin AdvReac Nausea & Verified 08/17/21 00:37 Vomiting ANTS AdvReac Mild Anaphylaxis Uncoded 08/17/21 00:37 Review of Systems ROS Statement: Those systems with pertinent positive or pertinent negative responses have been documented in the HPI. ROS Other: All systems not noted in ROS Statement are negative. Constitutional: Denies: fever, chills ENT: Denies: ear pain, throat pain Respiratory: Denies: cough, dyspnea Cardiovascular: Denies: chest pain, palpitations Gastrointestinal: Reports: nausea. Denies: abdominal pain, vomiting, diarrhea Genitourinary: Denies: urgency, dysuria Musculoskeletal: Reports: other (left ankle pain) Past Medical History Past Medical History: Asthma, Diabetes Mellitus, GERD/Reflux Additional Past Medical History / Comment(s): migraines, degenerative disk disease, endometriosis, lupus, pancreatitis, DM2- diet controlled History of Any Multi-Drug Resistant Organisms: None Reported Past Surgical History: Orthopedic Surgery Additional Past Surgical History / Comment(s): laparoscopc surgery for endo metriosis, cyst removed from left foot, EGD, Past Anesthesia/Blood Transfusion Reactions: Previous Problems w/ Anesthesia Additional Past Anesthesia/Blood Transfusion Reaction / Comment(s): hard to wake up for 48-72 hours after laparoscopic surgery-was in hosp. for 3 days Past Psychological History: Anxiety, Depression, PTSD Smoking Status: Never smoker Past Alcohol Use History: None Reported Past Drug Use History: None Reported - Past Family History Mother Family Medical History: No Reported History Additional Family Medical History / Comment(s): hx migraines Father Family Medical History: Coronary Artery Disease (CAD), Hypertension Additional Family Medical History / Comment(s): ddd, alcoholism & drug use General Exam Limitations: no limitations General appearance: alert, in no apparent distress Head exam: Present: atraumatic, normocephalic, normal inspection Respiratory exam: Present: normal lung sounds bilaterally. Absent: respiratory distress, wheezes, rales, rhonchi, stridor Cardiovascular Exam: Present: regular rate, normal rhythm, normal heart sounds. Absent: systolic murmur, diastolic murmur, rubs, gallop, clicks GI/Abdominal exam: Present: soft, normal bowel sounds. Absent: distended, tenderness, guarding, rebound, rigid Extremities exam: Present: other (Full range of motion of the left ankle. Tender to palpation of the posterior aspect. There is no swelling, erythema, obvious deformity, or abrasion. No vascular compromise, capillary refill less than 1 second.) Neurological exam: Present: alert, oriented X3, CN II-XII intact Psychiatric exam: Present: normal affect, normal mood Skin exam: Present: warm, dry, intact, normal color. Absent: rash Course Vital Signs 08/17/21 08/17/21 08/17/21 00:34 06:21 07:59 Temperature 98.4 F Pulse Rate 95 88 102 H Respiratory 18 18 18 Rate Blood Pressure 108/79 117/75 108/71 O2 Sat by Pulse 96 96 95 Oximetry 08/17/21 11:00 Temperature Pulse Rate 78 Respiratory 16 Rate Blood Pressure 111/71 O2 Sat by Pulse 96 Oximetry Medical Decision Making - Medical Decision Making This is a 30-year-old female who presents to the emergency department for left ankle pain and dizziness. X-ray of the left ankle obtained, revealing no acute abnormalities. Patient placed in an air stirrup ankle brace. Discussed with the patient that she has had multiple workups in the past regarding the recurrent dizziness, including a computed tomography scan of the brain 3 days ago. This is likely either related to vertigo or another etiology that would require a more in depth outpatient workup that we are unable to perform in the emergency department. She is instructed to discuss this with her PCP. We did obtain lab work and an EKG which were nonactionable. Patient's symptoms were adequately controlled and she was discharged home. Return precautions reviewed in depth, the patient is instructed to return to the emergency department with any new, worsening, or concerning symptoms. Patient verbalized understanding. This case was discussed in detail with the attending ED physician. Presentation, findings, and treatment plan discussed in detail as well. - Lab Data Result diagrams: 08/17/21 10:33 08/17/21 10:33 Lab Results 08/17/21 08/17/21 08/17/21 Range/Units 10:33 10:33 10:33 WBC 5.5 (3.8-10.6) k/uL RBC 4.12 (3.80-5.40) m/uL Hgb 13.4 (11.4-16.0) gm/dL Hct 40.3 (34.0-46.0) % MCV 97.8 (80.0-100.0) fL MCH 32.7 (25.0-35.0) pg MCHC 33.4 (31.0-37.0) g/dL RDW 13.5 (11.5-15.5) % Plt Count 237 (150-450) k/uL MPV 7.6 Neutrophils % 54 % Lymphocytes % 38 % Monocytes % 4 % Eosinophils % 2 % Basophils % 0 % Neutrophils # 2.9 (1.3-7.7) k/uL Lymphocytes # 2.1 (1.0-4.8) k/uL Monocytes # 0.2 (0-1.0) k/uL Eosinophils # 0.1 (0-0.7) k/uL Basophils # 0.0 (0-0.2) k/uL Sodium 139 (137-145) mmol/L Potassium 4.2 (3.5-5.1) mmol/L Chloride 104 (98-107) mmol/L Carbon Dioxide 25 (22-30) mmol/L Anion Gap 10 mmol/L BUN 10 (7-17) mg/dL Creatinine 0.74 (0.52-1.04) mg/dL Est GFR (CKD-EPI)AfAm >90 (>60 ml/min/1.73 sqM) Est GFR (CKD-EPI)NonAf >90 (>60 ml/min/1.73 sqM) Glucose 114 H (74-99) mg/dL Plasma Lactic Acid Aurelio 1.7 (0.7-2.0) mmol/L Calcium 10.0 (8.4-10.2) mg/dL Total Bilirubin 0.5 (0.2-1.3) mg/dL AST 31 (14-36) U/L ALT 18 (4-34) U/L Alkaline Phosphatase 49 (38-126) U/L Total Protein 7.4 (6.3-8.2) g/dL Albumin 4.2 (3.5-5.0) g/dL TSH 3.010 (0.465-4.680) mIU/L Urine Color Urine Appearance (Clear) Urine pH (5.0-8.0) Ur Specific [place] (1.001-1.035) Urine Protein (Negative) Urine Glucose (UA) (Negative) Urine Ketones (Negative) Urine Blood (Negative) Urine Nitrite (Negative) Urine Bilirubin (Negative) Urine Urobilinogen (<2.0) mg/dL Ur Leukocyte Esterase (Negative) Urine RBC (0-5) /hpf Urine WBC (0-5) /hpf Ur Squamous Epith Cells (0-4) /hpf Calcium Oxalate Crystal (None) /hpf Urine Bacteria (None) /hpf Urine Mucus (None) /hpf Urine Opiates Screen (NotDetected) Ur Oxycodone Screen (NotDetected) Urine Methadone Screen (NotDetected) Ur Propoxyphene Screen (NotDetected) Ur Barbiturates Screen (NotDetected) U Tricyclic Antidepress (NotDetected) Ur Phencyclidine Scrn (NotDetected) Ur Amphetamines Screen (NotDetected) U Methamphetamines Scrn (NotDetected) U Benzodiazepines Scrn (NotDetected) Urine Cocaine Screen (NotDetected) U Marijuana (THC) Screen (NotDetected) 08/17/21 Range/Units 10:33 WBC (3.8-10.6) k/uL RBC (3.80-5.40) m/uL Hgb (11.4-16.0) gm/dL Hct (34.0-46.0) % MCV (80.0-100.0) fL MCH (25.0-35.0) pg MCHC (31.0-37.0) g/dL RDW (11.5-15.5) % Plt Count (150-450) k/uL MPV Neutrophils % % Lymphocytes % % Monocytes % % Eosinophils % % Basophils % % Neutrophils # (1.3-7.7) k/uL Lymphocytes # (1.0-4.8) k/uL Monocytes # (0-1.0) k/uL Eosinophils # (0-0.7) k/uL Basophils # (0-0.2) k/uL Sodium (137-145) mmol/L Potassium (3.5-5.1) mmol/L Chloride (98-107) mmol/L Carbon Dioxide (22-30) mmol/L Anion Gap mmol/L BUN (7-17) mg/dL Creatinine (0.52-1.04) mg/dL Est GFR (CKD-EPI)AfAm (>60 ml/min/1.73 sqM) Est GFR (CKD-EPI)NonAf (>60 ml/min/1.73 sqM) Glucose (74-99) mg/dL Plasma Lactic Acid [place]ure[place] (0.7-2.0) mmol/L Calcium (8.4-10.2) mg/dL Total Bilirubin (0.2-1.3) mg/dL AST (14-36) U/L ALT (4-34) U/L Alkaline Phosphatase (38-126) U/L Total Protein (6.3-8.2) g/dL Albumin (3.5-5.0) g/dL TSH (0.465-4.680) mIU/L Urine Color Yellow Urine Appearance Cloudy H (Clear) Urine pH 6.0 (5.0-8.0) Ur Specific [place] 1.030 (1.001-1.035) Urine Protein 1+ H (Negative) Urine Glucose (UA) Negative (Negative) Urine Ketones Negative (Negative) Urine Blood Negative (Negative) Urine Nitrite Negative (Negative) Urine Bilirubin Negative (Negative) Urine Urobilinogen <2.0 (<2.0) mg/dL Ur Leukocyte Esterase Small H (Negative) Urine RBC 3 (0-5) /hpf Urine WBC 21 H (0-5) /hpf Ur Squamous Epith Cells 17 H (0-4) /hpf Calcium Oxalate Crystal Occasional H (None) /hpf Urine Bacteria Rare H (None) /hpf Urine Mucus Many H (None) /hpf Urine Opiates Screen Not Detected (NotDetected) Ur Oxycodone Screen Not Detected (NotDetected) Urine Methadone Screen Not Detected (NotDetected) Ur Propoxyphene Screen Not Detected (NotDetected) Ur Barbiturates Screen Not Detected (NotDetected) U Tricyclic Antidepress Detected H (NotDetected) Ur Phencyclidine Scrn Not Detected (NotDetected) Ur Amphetamines Screen Not Detected (NotDetected) U Methamphetamines Scrn Not Detected (NotDetected) U Benzodiazepines Scrn Detected H (NotDetected) Urine Cocaine Screen Not Detected (NotDetected) U Marijuana (THC) Screen Not Detected (NotDetected) - EKG Data EKG Comments: Sinus rhythm with sinus arrhythmia. Left posterior fascicular block. Ventricular rate 66 bpm, SC interval 135 ms, QRS duration 84 ms, QTC 448 ms. - Radiology Data Radiology results: report reviewed, image reviewed Disposition Clinical Impression: Left ankle sprain Disposition: HOME SELF-CARE Instructions (If sedation given, give patient instructions): Ankle Sprain (ED) Additional Instructions: Return to the emergency department with any new, worsening, or concerning sym ptoms. Follow up with your primary care provider in 1 to 2 days. Is patient prescribed a controlled substance at d/c from ED?: No Referrals: Isi Carolina MD [Primary Care Provider] - 1-2 days
[2021-08-17 10:58] LABS: Appearance,Urine Cloudy (Clear); Bacteria,Urine Rare /hpf; Bilirubin,Urine Negative (Negative); Blood,Urine Negative (Negative); Calcium Oxalate Crystals,Urine Occasional /hpf; Color,Urine Yellow; Glucose,Urine (UA) Negative (Negative); Ketones,Urine Negative (Negative); Leukocyte Esterase,Urine Small (Negative); Mucus,Urine Many /hpf; Nitrite,Urine Negative (Negative); Protein,Urine 1+ (Negative); RBC,Urine 3 /hpf (0-5); Squamous Epithelial Cell,Urine 17 /hpf (0-4); Urobilinogen,Urine <2.0 mg/dL (<2.0); WBC,Urine 21 /hpf (0-5)
[2021-08-17 11:00] LABS: ALT 18 U/L (4-34); AST 31 U/L (14-36); African American GFR (CKD) >90 (>60 ml/min/1.73 sqM); Albumin 4.2 g/dL (3.5-5.0); Alkaline Phosphatase 49 U/L (38-126); Anion Gap 10 mmol/L; Blood Urea Nitrogen 10 mg/dL (7-17); Carbon Dioxide 25 mmol/L (22-30); Chloride 104 mmol/L (98-107); Cocaine Screen,Urine Not Detected (NotDetected); Glucose 114 mg/dL (74-99); Non-African American GFR(CKD) >90 (>60 ml/min/1.73 sqM); Phencyclidine Screen,Urine Not Detected (NotDetected); Potassium 4.2 mmol/L (3.5-5.1); Sodium 139 mmol/L (137-145); Total Bilirubin 0.5 mg/dL (0.2-1.3); Total Protein 7.4 g/dL (6.3-8.2); Urn Cannabinoid Scrn Not Detected (NotDetected)
[2021-08-17 11:01] LABS: Amphetamine Screen,Urine Not Detected (NotDetected); Barbiturate Screen,Urine Not Detected (NotDetected); Benzodiazepines Screen,Urine Detected (NotDetected); Methadone Screen, Urine Not Detected (NotDetected); Opiate Screen,Urine Not Detected (NotDetected); Oxycodone Screen, Urine Not Detected (NotDetected); Tricyclic Antidepressant,Urine Detected (NotDetected)
[2021-08-17 11:06] VITALS: BP 111/71
[2021-08-17 11:09] LABS: Basophils % (A) 0 %; Eosinophils # (A) 0.1 k/uL (0-0.7); Eosinophils % (A) 2 %; HCT 40.3 % (34.0-46.0); HGB 13.4 gm/dL (11.4-16.0); Lymphocytes # (A) 2.1 k/uL (1.0-4.8); Lymphocytes % (A) 38 %; MCH 32.7 pg (25.0-35.0); MCHC 33.4 g/dL (31.0-37.0); MCV 97.8 fL (80.0-100.0); Mean Platelet Volume 7.6; Monocytes # (A) 0.2 k/uL (0-1.0); Monocytes % (A) 4 %; Neutrophils # (A) 2.9 k/uL (1.3-7.7); Neutrophils % (A) 54 %; Platelet Count 237 k/uL (150-450); RBC 4.12 m/uL (3.80-5.40); RDW 13.5 % (11.5-15.5); WBC 5.5 k/uL (3.8-10.6)
[2021-08-17 12:01] VITALS: PULSE 92; RESP 18; TEMP 97.9
== END 2021-08-17 12:01 | disposition home or self-care (01) ==
LOC: EC 00:18
DX: S93.402A Sprain of unspecified ligament of left ankle, initial encounter (principal); E11.9 Type 2 diabetes mellitus without complications; K21.9 Gastro-esophageal reflux disease without esophagitis; J45.909 Unspecified asthma, uncomplicated; F32.A Depression, unspecified; F41.9 Anxiety disorder, unspecified; Z79.84 Long term (current) use of oral hypoglycemic drugs; Z79.899 Other long term (current) drug therapy; Z88.0 Allergy status to penicillin; Z88.2 Allergy status to sulfonamides; Z88.5 Allergy status to narcotic agent; W19.XXXA Unspecified fall, initial encounter
CPT/HCPCS: 36415; 93005; 80053; 84443; 83605; 85025; 81001; 80306; 87086; 73610; 29125; 99284; 96374; 96375; 96372 ×5; J1200; J2765; J2405; J1885; J1170

== ENCOUNTER 2021-08-20 10:27 | Emergency (ER) | payer OTHER ==
[2021-08-20 10:48] VITALS: BP 122/85; PULSE 98; RESP 16; TEMP 98.1
[2021-08-20] MEDS ORDERED: SODIUM CHLORIDE 0.9% 1,000 ML IV ONE (11:49)
[2021-08-20] MEDS ORDERED: ONDANSETRON 4 MG/2 ML VIAL IVP STA (11:50)
[2021-08-20] MEDS ORDERED: KETOROLAC 15 MG/ML 1 ML VIAL IVP STA (11:50)
[2021-08-20 12:31] LABS: Amorphous Sediment,Urine Occasional /hpf; Appearance,Urine Turbid (Clear); Bacteria,Urine Occasional /hpf; Bilirubin,Urine Negative (Negative); Blood,Urine Negative (Negative); Color,Urine Yellow; Glucose,Urine (UA) Negative (Negative); Ketones,Urine Negative (Negative); Leukocyte Esterase,Urine Moderate (Negative); Mucus,Urine Many /hpf; Nitrite,Urine Negative (Negative); Protein,Urine Trace (Negative); Specific Gravity,Urine 1.014 (1.001-1.035); Squamous Epithelial Cell,Urine 90 /hpf (0-4); Urobilinogen,Urine <2.0 mg/dL (<2.0); WBC,Urine 12 /hpf (0-5)
[2021-08-20] MEDS ORDERED: KETOROLAC 15 MG/ML 1 ML VIAL IM STA (12:41)
[2021-08-20] MEDS ORDERED: ONDANSETRON 4 MG TAB PO STA (12:41)
[2021-08-20] MEDS ORDERED: ACETAMINOPHEN TAB 325 MG TAB PO STA (13:33)
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
[2021-08-21 14:08] LABS: C. trachomatis,PCR Negative (Neg,Equiv); Chlamydia trachomatis Source Cervix; N. gonorrhoeae,PCR Negative (Neg,Equiv); Neisseria Source Cervix
== END 2021-08-20 14:37 | disposition home or self-care (01) ==
LOC: EC 10:27
DX: T74.21XA Adult sexual abuse, confirmed, initial encounter (principal); J45.909 Unspecified asthma, uncomplicated; E11.9 Type 2 diabetes mellitus without complications; Z88.8 Allergy status to other drugs, medicaments and biological substances; Z91.040 Latex allergy status; Z88.5 Allergy status to narcotic agent; Z88.0 Allergy status to penicillin
CPT/HCPCS: 81001; 81025; 87808; 87491; 87591; 87086; 99284; 96372; J1885

== ENCOUNTER 2021-08-23 00:39 | Emergency (ER) | payer OTHER ==
[2021-08-23 00:54] VITALS: TEMP 98.1
[2021-08-23] MEDS ORDERED: SODIUM CHLORIDE 0.9% 1,000 ML IV STA (01:03)
[2021-08-23] MEDS ORDERED: IBUPROFEN IV 400 MG in SODIUM CHLORIDE 0.9% 100 ML IV ONE (01:30)
[2021-08-23] MEDS ORDERED: hydrOXYzine HCL 50 MG/ML 1 ML VIAL IM ONE (01:30)
[2021-08-23 02:26] LABS: Basophils % (A) 1 %; Eosinophils # (A) 0.1 k/uL (0-0.7); Eosinophils % (A) 2 %; HCT 34.9 % (34.0-46.0); HGB 11.9 gm/dL (11.4-16.0); Lymphocytes # (A) 1.8 k/uL (1.0-4.8); Lymphocytes % (A) 44 %; MCH 33.6 pg (25.0-35.0); MCHC 34.1 g/dL (31.0-37.0); MCV 98.6 fL (80.0-100.0); Mean Platelet Volume 7.8; Monocytes # (A) 0.2 k/uL (0-1.0); Monocytes % (A) 5 %; Neutrophils # (A) 1.9 k/uL (1.3-7.7); Neutrophils % (A) 47 %; Platelet Count 242 k/uL (150-450); RBC 3.54 m/uL (3.80-5.40); RDW 13.4 % (11.5-15.5); WBC 4.2 k/uL (3.8-10.6)
--- NOTE | 2021-08-23 02:41 | ED ---
General Adult HPI - General Chief complaint: Headache Stated complaint: Migraine, abd pain Time Seen by Provider: 08/23/21 00:54 Source: patient, RN notes reviewed Mode of arrival: ambulatory - History of Present Illness Initial comments: This is a 30-year-old female who is a frequent visitor to our emergency department. Percents today complaining of a migraine headache which is consistent with the headache she has had in the past. Some nausea and vomiting. Patient also complaining of abdominal pain which the patient has had recurrent and frequently. Patient recently had a cholecystectomy and subsequently was admitted here for chronic pancreatitis. Patient complaining of some pain in the epigastrium and left upper quadrant area. No lower abdominal pain. no fever or chills, no changes in vision or hearing, no sore throat or difficulty with speech, no neck pain, no chest pain or shortness of breath, , no changes in urination or bowel movements, no numbness or tingling, no extremity pain, no skin rashes or lesions. - Related Data Home Medications Medication Instructions Recorded Confirmed Fenofibrate [Lofibra] 160 mg PO HS@2100 07/02/21 08/14/21 Midodrine HCl 5 mg PO BID PRN 07/02/21 08/14/21 metFORMIN HCL 500 mg PO BID@0800,1700 07/02/21 08/14/21 ARIPiprazole IM SYRINGE [Abilify 400 mg IM Q30D 07/28/21 08/14/21 Maintena Syringe] Acetaminophen Tab [Tylenol] 1,000 mg PO Q6H PRN 07/28/21 08/14/21 Desvenlafaxine [Desvenlafaxine ER] 50 mg PO DAILY@0800 07/28/21 08/14/21 Dicyclomine [Bentyl] 10 mg PO TID PRN 07/28/21 08/14/21 QUEtiapine [SEROquel] 400 mg PO HS@2100 07/28/21 08/14/21 busPIRone HCL 15 mg PO QID@08,12,16,21 07/28/21 08/14/21 traZODone HCL [Desyrel] 250 mg PO HS@2100 07/28/21 08/14/21 Ibuprofen [Motrin] 600 mg PO TID PRN 08/10/21 08/14/21 Ondansetron [Zofran] 4 mg PO Q8H PRN 08/10/21 08/14/21 Azithromycin [Zithromax] 500 mg PO DAILY 08/14/21 08/14/21 Allergies Allergy/AdvReac Type Severity Reaction Status Date / Time bee pollen Allergy Severe Anaphylaxis Verified 08/23/21 00:54 haloperidol [From Haldol] Allergy Severe QUIT Verified 08/23/21 00:54 BREATHING haloperidol lactate Allergy Severe QUIT Verified 08/23/21 00:54 [From Haldol] BREATHING latex Allergy Severe RASH-THROAT Verified 08/23/21 00:54 CLOSES [place] Allergy Anaphylaxis Verified 08/23/21 00:54 coconut Allergy Anaphylaxis Verified 08/23/21 00:54 morphine Allergy Rash/Hives Verified 08/23/21 00:54 pineapple Allergy Anaphylaxis Verified 08/23/21 00:54 prednisone Allergy THROAT Verified 08/23/21 00:54 SWELLS spider venom Allergy Swelling Verified 08/23/21 00:54 Sulfa (Sulfonamide Allergy THROAT Verified 08/23/21 00:54 Antibiotics) SWELLS venom-wasp Allergy Swelling Verified 08/23/21 00:54 venom-wasp protein Allergy Swelling Verified 08/23/21 00:54 promethazine HCl AdvReac Severe Nausea & Verified 08/23/21 00:54 [From Phenergan] Vomiting tramadol AdvReac Severe Nausea & Verified 08/23/21 00:54 Vomiting amoxicillin AdvReac Nausea & Verified 08/23/21 00:54 Vomiting ANTS AdvReac Mild Anaphylaxis Uncoded 08/23/21 00:54 Review of Systems ROS Statement: Those systems with pertinent positive or pertinent negative responses have been documented in the HPI. ROS Other: All systems not noted in ROS Statement are negative. Past Medical History Past Medical History: Asthma, Diabetes Mellitus, GERD/Reflux Additional Past Medical History / Comment(s): migraines, degenerative disk disease, endometriosis, lupus, pancreatitis, DM2- diet controlled History of Any Multi-Drug Resistant Organisms: None Reported Past Surgical History: Orthopedic Surgery Additional Past Surgical History / Comment(s): laparoscopc surgery for endometriosis, cyst removed from left foot, EGD, Past Anesthesia/Blood Transfusion Reactions: Previous Problems w/ Anesthesia Additional Past Anesthesia/Blood Transfusion Reaction / Comment(s): hard to wake up for 48-72 hours after laparoscopic surgery-was in hosp. for 3 days Past Psychological History: Anxiety, Depression, PTSD Smoking Status: Never smoker Past Alcohol Use History: None Reported Past Drug Use History: None Reported - Past Family History Mother Family Medical History: No Reported History Additional Family Medical History / Comment(s): hx migraines Father Family Medical History: Coronary Artery Disease (CAD), Hypertension Additional Family Medical History / Comment(s): ddd, alcoholism & drug use General Exam General appearance: alert, in no apparent distress Head exam: Present: atraumatic, normocephalic, normal inspection Eye exam: Present: normal appearance, PERRL, EOMI. Absent: scleral icterus, conjunctival injection, periorbital swelling ENT exam: Present: normal exam, normal oropharynx, mucous membranes moist. Absent: mucous membranes dry, normal external ear exam Neck exam: Present: normal inspection, full ROM. Absent: tenderness, meningismus, lymphadenopathy Respiratory exam: Present: normal lung sounds bilaterally. Absent: respiratory distress, wheezes, rales, rhonchi, stridor Cardiovascular Exam: Present: regular rate, normal rhythm, normal heart sounds. Absent: systolic murmur, diastolic murmur, rubs, gallop, clicks GI/Abdominal exam: Present: soft, tenderness (Patient has mild tenderness across the upper abdomen. Previous surgical scar noted. No hepatosplenomegaly.), normal bowel sounds. Absent: distended, guarding, rebound, rigid Extremities exam: Present: normal inspection, full ROM, normal capillary refill. Absent: tenderness, pedal edema, joint swelling, calf tenderness Back exam: Present: normal inspection Neurological exam: Present: alert, oriented X3, CN II-XII intact Psychiatric exam: Present: normal affect, normal mood Skin exam: Present: warm, dry, intact, normal color. Absent: rash Course Vital Signs 08/23/21 08/23/21 00:51 04:53 Temperature 98.1 F Pulse Rate 115 H 96 Respiratory 18 16 Rate Blood Pressure 129/88 117/86 O2 Sat by Pulse 98 98 Oximetry Medical Decision Making - Medical Decision Making Recurrent and chronic migraines and abdominal pain. Patient has been to the ER over 10 times this month. The case was discussed in detail with ED attending physician. Presentation, findings, treatment plan discussed in detail. Patient endorsed to the ED attending physician at 300 9 AM for further evaluation and disposition - Lab Data Result diagrams: 08/23/21 01:26 08/23/21 02:34 Lab Results 08/23/21 08/23/21 08/23/21 Range/Units 01:26 01:26 01:26 WBC 4.2 (3.8-10.6) k/uL RBC 3.54 L (3.80-5.40) m/uL Hgb 11.9 (11.4-16.0) gm/dL Hct 34.9 (34.0-46.0) % MCV 98.6 (80.0-100.0) fL MCH 33.6 (25.0-35.0) pg MCHC 34.1 (31.0-37.0) g/dL RDW 13.4 (11.5-15.5) % Plt Count 242 (150-450) k/uL MPV 7.8 Neutrophils % 47 % Lymphocytes % 44 % Monocytes % 5 % Eosinophils % 2 % Basophils % 1 % Neutrophils # 1.9 (1.3-7.7) k/uL Lymphocytes # 1.8 (1.0-4.8) k/uL Monocytes # 0.2 (0-1.0) k/uL Eosinophils # 0.1 (0-0.7) k/uL Basophils # 0.0 (0-0.2) k/uL Sodium (137-145) mmol/L Potassium (3.5-5.1) mmol/L Chloride (98-107) mmol/L Carbon Dioxide (22-30) mmol/L Anion Gap mmol/L BUN (7-17) mg/dL Creatinine (0.52-1.04) mg/dL Est GFR (CKD-EPI)AfAm (>60 ml/min/1.73 sqM) Est GFR (CKD-EPI)NonAf (>60 ml/min/1.73 sqM) Glucose (74-99) mg/dL Plasma Lactic Acid Aurelio (0.7-2.0) mmol/L Calcium (8.4-10.2) mg/dL Total Bilirubin (0.2-1.3) mg/dL AST (14-36) U/L ALT (4-34) U/L Alkaline Phosphatase (38-126) U/L Total Protein (6.3-8.2) g/dL Albumin (3.5-5.0) g/dL Lipase (23-300) U/L Urine Color Light Yellow Urine Appearance Cloudy H (Clear) Urine pH 6.0 (5.0-8.0) Ur Specific [place] 1.010 (1.001-1.035) Urine Protein Negative (Negative) Urine Glucose (UA) Trace H (Negative) Urine Ketones Negative (Negative) Urine Blood Negative (Negative) Urine Nitrite Negative (Negative) Urine Bilirubin Negative (Negative) Urine Urobilinogen <2.0 (<2.0) mg/dL Ur Leukocyte Esterase Moderate H (Negative) Urine RBC 1 (0-5) /hpf Urine WBC 5 (0-5) /hpf Ur Squamous Epith Cells 8 H (0-4) /hpf Urine Bacteria Occasional H (None) /hpf Urine Mucus Rare H (None) /hpf Urine HCG, Qual Not Detected (Not Detectd) 08/23/21 08/23/21 Range/Units 01:26 02:34 WBC (3.8-10.6) k/uL RBC (3.80-5.40) m/uL Hgb (11.4-16.0) gm/dL Hct (34.0-46.0) % MCV (80.0-100.0) fL MCH (25.0-35.0) pg MCHC (31.0-37.0) g/dL RDW (11.5-15.5) % Plt Count (150-450) k/uL MPV Neutrophils % % Lymphocytes % % Monocytes % % Eosinophils % % Basophils % % Neutrophils # (1.3-7.7) k/uL Lymphocytes # (1.0-4.8) k/uL Monocytes # (0-1.0) k/uL Eosinophils # (0-0.7) k/uL Basophils # (0-0.2) k/uL Sodium 135 L (137-145) mmol/L Potassium 4.0 (3.5-5.1) mmol/L Chloride 107 (98-107) mmol/L Carbon Dioxide 23 (22-30) mmol/L Anion Gap 5 mmol/L BUN 8 (7-17) mg/dL Creatinine 0.71 (0.52-1.04) mg/dL Est GFR (CKD-EPI)AfAm >90 (>60 ml/min/1.73 sqM) Est GFR (CKD-EPI)NonAf >90 (>60 ml/min/1.73 sqM) Glucose 182 H (74-99) mg/dL Plasma Lactic Acid [place]ure[place] 1.9 (0.7-2.0) mmol/L Calcium 9.5 (8.4-10.2) mg/dL Total Bilirubin 0.3 (0.2-1.3) mg/dL AST 20 (14-36) U/L ALT 17 (4-34) U/L Alkaline Phosphatase 40 (38-126) U/L Total Protein 5.7 L (6.3-8.2) g/dL Albumin 3.3 L (3.5-5.0) g/dL Lipase 462 H (23-300) U/L Urine Color Urine Appearance (Clear) Urine pH (5.0-8.0) Ur Specific [place] (1.001-1.035) Urine Protein (Negative) Urine Glucose (UA) (Negative) Urine Ketones (Negative) Urine Blood (Negative) Urine Nitrite (Negative) Urine Bilirubin (Negative) Urine Urobilinogen (<2.0) mg/dL Ur Leukocyte Esterase (Negative) Urine RBC (0-5) /hpf Urine WBC (0-5) /hpf Ur Squamous Epith Cells (0-4) /hpf Urine Bacteria (None) /hpf Urine Mucus (None) /hpf Urine HCG, Qual (Not Detectd) Disposition Clinical Impression: Chronic abdominal pain, Headache Disposition: HOME SELF-CARE Is patient prescribed a controlled substance at d/c from ED?: No Referrals: Isi Carolina MD [Primary Care Provider] - 1-2 days
[2021-08-23 03:09] LABS: ALT 17 U/L (4-34); AST 20 U/L (14-36); African American GFR (CKD) >90 (>60 ml/min/1.73 sqM); Albumin 3.3 g/dL (3.5-5.0); Alkaline Phosphatase 40 U/L (38-126); Anion Gap 5 mmol/L; Blood Urea Nitrogen 8 mg/dL (7-17); Calcium 9.5 mg/dL (8.4-10.2); Carbon Dioxide 23 mmol/L (22-30); Chloride 107 mmol/L (98-107); Glucose 182 mg/dL (74-99); Lipase 462 U/L (23-300); Non-African American GFR(CKD) >90 (>60 ml/min/1.73 sqM); Sodium 135 mmol/L (137-145); Total Bilirubin 0.3 mg/dL (0.2-1.3); Total Protein 5.7 g/dL (6.3-8.2)
--- NOTE | 2021-08-23 03:53 | XR ---
EXAMINATION TYPE: XR abdomen acute w cxr DATE OF EXAM: 08/23/2021 COMPARISON: 08/09/2021 HISTORY: Flank pain TECHNIQUE: 4 views FINDINGS: Heart and mediastinum are normal. Lungs are clear. Diaphragm is normal. Bony thorax appears normal. Bowel gas pattern is normal. No sign of intestinal obstruction or pneumoperitoneum. Fecal pa ttern is normal. IMPRESSION: Nonacute abdomen. Normal chest.
[2021-08-23 04:08] LABS: Appearance,Urine Cloudy (Clear); Bacteria,Urine Occasional /hpf; Bilirubin,Urine Negative (Negative); Blood,Urine Negative (Negative); Color,Urine Light Yellow; Glucose,Urine (UA) Trace (Negative); Ketones,Urine Negative (Negative); Leukocyte Esterase,Urine Moderate (Negative); Mucus,Urine Rare /hpf; Nitrite,Urine Negative (Negative); Protein,Urine Negative (Negative); RBC,Urine 1 /hpf (0-5); Squamous Epithelial Cell,Urine 8 /hpf (0-4); Urobilinogen,Urine <2.0 mg/dL (<2.0); WBC,Urine 5 /hpf (0-5)
[2021-08-23] MEDS ORDERED: DICYCLOMINE 10 MG/ML 2 ML AMP IM STA (04:39)
[2021-08-23 04:54] VITALS: BP 117/86; PULSE 96; RESP 16
== END 2021-08-23 05:36 | disposition home or self-care (01) ==
LOC: EC 00:39
DX: G89.29 Other chronic pain (principal); R10.12 Left upper quadrant pain; R10.13 Epigastric pain; R51.9 Headache, unspecified; E11.9 Type 2 diabetes mellitus without complications; J45.909 Unspecified asthma, uncomplicated; K21.9 Gastro-esophageal reflux disease without esophagitis; F32.A Depression, unspecified; F41.9 Anxiety disorder, unspecified; Z79.84 Long term (current) use of oral hypoglycemic drugs; Z79.899 Other long term (current) drug therapy
CPT/HCPCS: 36415; 80053; 83605; 83690; 85025; 81001; 81025; 74022; 99284; 96365; 96361; 96372 ×2; J0500; J3410; J1741

== ENCOUNTER 2021-08-28 08:56 | Emergency (ER) | payer OTHER ==
[2021-08-28 09:03] VITALS: RESP 18
[2021-08-28] MEDS ORDERED: diphenhydrAMINE 50 MG/ML 1 ML VIAL IVP STA (09:26)
[2021-08-28] MEDS ORDERED: METOCLOPRAMIDE 5 MG/ML 2 ML VIAL IVP STA (09:26)
[2021-08-28] MEDS ORDERED: KETOROLAC 15 MG/ML 1 ML VIAL IVP STA (09:26)
[2021-08-28] MEDS ORDERED: SODIUM CHLORIDE 0.9% 2,000 ML IV STA (09:26)
--- NOTE | 2021-08-28 10:08 | ED ---
Abdominal Pain HPI - General Chief Complaint: Abdominal Pain Stated Complaint: Chest Pain/Abd Pain Time Seen by Provider: 08/28/21 09:03 Source: patient, RN notes reviewed Mode of arrival: ambulatory Limitations: no limitations - History of Present Illness Initial Comments: This a 21-year-old female presents emergency Department with chief complaint abdominal pain. Patient has chronic abdominal issues, chronic pain issues. Patient states that this pain is getting worse and the other day. She states that her epigastric region and radiates up. Patient states she feels like her pancreatitis. She states she tried eating a salmon congestion made symptoms worse. Denies any alcohol intake. Patient denies any fevers or chills no diarrhea patient with the nausea vomiting. - Related Data Home Medications Medication Instructions Recorded Confirmed Fenofibrate [Lofibra] 160 mg PO HS@2100 07/02/21 08/14/21 Midodrine HCl 5 mg PO BID PRN 07/02/21 08/14/21 metFORMIN HCL 500 mg PO BID@0800,1700 07/02/21 08/14/21 ARIPiprazole IM SYRINGE [Abilify 400 mg IM Q30D 07/28/21 08/14/21 Maintena Syringe] Acetaminophen Tab [Tylenol] 1,000 mg PO Q6H PRN 07/28/21 08/14/21 Desvenlafaxine [Desvenlafaxine ER] 50 mg PO DAILY@0800 07/28/21 08/14/21 Dicyclomine [Bentyl] 10 mg PO TID PRN 07/28/21 08/14/21 QUEtiapine [SEROquel] 400 mg PO HS@2100 07/28/21 08/14/21 busPIRone HCL 15 mg PO QID@08,12,16,21 07/28/21 08/14/21 traZODone HCL [Desyrel] 250 mg PO HS@2100 07/28/21 08/14/21 Ibuprofen [Motrin] 600 mg PO TID PRN 08/10/21 08/14/21 Ondansetron [Zofran] 4 mg PO Q8H PRN 08/10/21 08/14/21 Azithromycin [Zithromax] 500 mg PO DAILY 08/14/21 08/14/21 Allergies Allergy/AdvReac Type Severity Reaction Status Date / Time bee pollen Allergy Severe Anaphylaxis Verified 08/28/21 09:02 haloperidol [From Haldol] Allergy Severe QUIT Verified 08/28/21 09:02 BREATHING haloperidol lactate Allergy Severe QUIT Verified 08/28/21 09:02 [From Haldol] BREATHING latex Allergy Severe RASH-THROAT Verified 08/28/21 09:02 CLOSES [place] Allergy Anaphylaxis Verified 08/28/21 09:02 coconut Allergy Anaphylaxis Verified 08/28/21 09:02 morphine Allergy Rash/Hives Verified 08/28/21 09:02 pineapple Allergy Anaphylaxis Verified 08/28/21 09:02 prednisone Allergy THROAT Verified 08/28/21 09:02 SWELLS spider venom Allergy Swelling Verified 08/28/21 09:02 Sulfa (Sulfonamide Allergy THROAT Verified 08/28/21 09:02 Antibiotics) SWELLS venom-wasp Allergy Swelling Verified 08/28/21 09:02 venom-wasp protein Allergy Swelling Verified 08/28/21 09:02 promethazine HCl AdvReac Severe Nausea & Verified 08/28/21 09:02 [From Phenergan] Vomiting tramadol AdvReac Severe Nausea & Verified 08/28/21 09:02 Vomiting amoxicillin AdvReac Nausea & Verified 08/28/21 09:02 Vomiting ANTS AdvReac Mild Anaphylaxis Uncoded 08/28/21 09:02 Review of Systems ROS Statement: Those systems with pertinent positive or pertinent negative responses have been documented in the HPI. ROS Other: All systems not noted in ROS Statement are negative. Past Medical History Past Medical History: Asthma, Diabetes Mellitus, GERD/Reflux Additional Past Medical History / Comment(s): migraines, degenerative disk disease, endometriosis, lupus, pancreatitis, DM2- diet controlled History of Any Multi-Drug Resistant Organisms: None Reported Past Surgical History: Orthopedic Surgery Additional Past Surgical History / Comment(s): laparoscopc surgery for endometriosis, cyst removed from left foot, EGD, Past Anesthesia/Blood Transfusion Reactions: Previous Problems w/ Anesthesia Additional Past Anesthesia/Blood Transfusion Reaction / Comment(s): hard to wake up for 48-72 hours after laparoscopic surgery-was in hosp. for 3 days Past Psychological History: Anxiety, Depression, PTSD Smoking Status: Never smoker Past Alcohol Use History: None Reported Past Drug Use History: None Reported - Past Family History Mother Family Medical History: No Reported History Additional Family Medical History / Comment(s): hx migraines Father Family Medical History: Coronary Artery Disease (CAD), Hypertension Additional Family Medical History / Comment(s): ddd, alcoholism & drug use General Exam Limitations: no limitations General appearance: alert, in no apparent distress Head exam: Present: atraumatic, normocephalic, normal inspection Eye exam: Present: normal appearance, PERRL, EOMI. Absent: scleral icterus, conjunctival injection, periorbital swelling ENT exam: Present: normal exam, normal oropharynx, mucous membranes moist Neck exam: Present: normal inspection, full ROM. Absent: tenderness, meningismus, lymphadenopathy Respiratory exam: Present: normal lung sounds bilaterally. Absent: respiratory distress, wheezes, rales, rhonchi, stridor Cardiovascular Exam: Present: normal rhythm, tachycardia, normal heart sounds. Absent: systolic murmur, diastolic murmur, rubs, gallop, clicks GI/Abdominal exam: Present: soft, tenderness, normal bowel sounds. Absent: distended, guarding, rebound, rigid Back exam: Absent: CVA tenderness (R), CVA tenderness (L) Neurological exam: Present: alert Skin exam: Present: warm, dry, intact, normal color. Absent: rash Course Vital Signs 08/28/21 08/28/21 08/28/21 08:58 09:25 10:46 Temperature 97.9 F Pulse Rate 144 H 116 H 101 H Respiratory 18 18 18 Rate Blood Pressure 113/82 94/73 113/95 O2 Sat by Pulse 98 95 96 Oximetry Medical Decision Making - Medical Decision Making 21-year-old female presented for abdominal pain this a chronic pain in nature. There are no acute laboratory changes she has lipase of 418 which is similar to her prior visit. Patient was tachycardic upon arrival though other improved patient's respiratory complaint of bilateral be discharged in stable condition. - Lab Data Result diagrams: 08/28/21 10:08 08/28/21 09:43 Lab Results 08/28/21 08/28/21 Range/Units 09:43 10:08 WBC 6.1 (3.8-10.6) k/uL RBC 3.84 (3.80-5.40) m/uL Hgb 12.3 (11.4-16.0) gm/dL Hct 37.3 (34.0-46.0) % MCV 97.2 (80.0-100.0) fL MCH 32.2 (25.0-35.0) pg MCHC 33.1 (31.0-37.0) g/dL RDW 12.7 (11.5-15.5) % Plt Count 246 (150-450) k/uL MPV 7.9 Neutrophils % 70 % Lymphocytes % 23 % Monocytes % 5 % Eosinophils % 1 % Basophils % 0 % Neutrophils # 4.3 (1.3-7.7) k/uL Lymphocytes # 1.4 (1.0-4.8) k/uL Monocytes # 0.3 (0-1.0) k/uL Eosinophils # 0.0 (0-0.7) k/uL Basophils # 0.0 (0-0.2) k/uL Sodium 135 L (137-145) mmol/L Potassium 4.6 (3.5-5.1) mmol/L Chloride 105 (98-107) mmol/L Carbon Dioxide 24 (22-30) mmol/L Anion Gap 6 mmol/L BUN 10 (7-17) mg/dL Creatinine 0.69 (0.52-1.04) mg/dL Est GFR (CKD-EPI)AfAm >90 (>60 ml/min/1.73 sqM) Est GFR (CKD-EPI)NonAf >90 (>60 ml/min/1.73 sqM) Glucose 152 H (74-99) mg/dL Calcium 10.2 (8.4-10.2) mg/dL Total Bilirubin 0.3 (0.2-1.3) mg/dL AST 21 (14-36) U/L ALT 14 (4-34) U/L Alkaline Phosphatase 43 (38-126) U/L Total Protein 6.5 (6.3-8.2) g/dL Albumin 3.7 (3.5-5.0) g/dL Amylase 46 (30-110) U/L Lipase 418 H (23-300) U/L Disposition Clinical Impression: Chronic pancreatitis, Chronic abdominal pain Disposition: HOME SELF-CARE Condition: Stable Instructions (If sedation given, give patient instructions): Abdominal Pain (ED) Additional Instructions: Please return to the Emergency Department if symptoms worsen or any other concerns. Is patient prescribed a controlled substance at d/c from ED?: No Referrals: Isi Carolina MD [Primary Care Provider] - 1-2 days Time of Disposition: 11:20
[2021-08-28 10:21] LABS: ALT 14 U/L (4-34); AST 21 U/L (14-36); African American GFR (CKD) >90 (>60 ml/min/1.73 sqM); Albumin 3.7 g/dL (3.5-5.0); Alkaline Phosphatase 43 U/L (38-126); Amylase 46 U/L (30-110); Anion Gap 6 mmol/L; Blood Urea Nitrogen 10 mg/dL (7-17); Calcium 10.2 mg/dL (8.4-10.2); Carbon Dioxide 24 mmol/L (22-30); Chloride 105 mmol/L (98-107); Glucose 152 mg/dL (74-99); Lipase 418 U/L (23-300); Non-African American GFR(CKD) >90 (>60 ml/min/1.73 sqM); Potassium 4.6 mmol/L (3.5-5.1); Sodium 135 mmol/L (137-145); Total Bilirubin 0.3 mg/dL (0.2-1.3); Total Protein 6.5 g/dL (6.3-8.2)
[2021-08-28 10:36] LABS: Basophils % (A) 0 %; Eosinophils % (A) 1 %; HCT 37.3 % (34.0-46.0); HGB 12.3 gm/dL (11.4-16.0); Lymphocytes # (A) 1.4 k/uL (1.0-4.8); Lymphocytes % (A) 23 %; MCH 32.2 pg (25.0-35.0); MCHC 33.1 g/dL (31.0-37.0); MCV 97.2 fL (80.0-100.0); Mean Platelet Volume 7.9; Monocytes # (A) 0.3 k/uL (0-1.0); Monocytes % (A) 5 %; Neutrophils # (A) 4.3 k/uL (1.3-7.7); Neutrophils % (A) 70 %; Platelet Count 246 k/uL (150-450); RBC 3.84 m/uL (3.80-5.40); RDW 12.7 % (11.5-15.5); WBC 6.1 k/uL (3.8-10.6)
[2021-08-28 11:48] VITALS: BP 123/88; PULSE 88; TEMP 98.1
[2021-08-28 12:19] LABS: Appearance,Urine Clear (Clear); Bacteria,Urine Rare /hpf; Bilirubin,Urine Negative (Negative); Blood,Urine Negative (Negative); Color,Urine Colorless; Glucose,Urine (UA) Trace (Negative); Ketones,Urine Negative (Negative); Leukocyte Esterase,Urine Moderate (Negative); Mucus,Urine Rare /hpf; Nitrite,Urine Negative (Negative); PH, Urine 6.5 (5.0-8.0); Protein,Urine Negative (Negative); RBC,Urine 1 /hpf (0-5); Specific Gravity,Urine 1.005 (1.001-1.035); Squamous Epithelial Cell,Urine 4 /hpf (0-4); Urobilinogen,Urine <2.0 mg/dL (<2.0); WBC,Urine 2 /hpf (0-5)
== END 2021-08-28 11:52 | disposition home or self-care (01) ==
LOC: EC 08:56
DX: J45.909 Unspecified asthma, uncomplicated (principal); E11.9 Type 2 diabetes mellitus without complications; K86.1 Other chronic pancreatitis; G89.29 Other chronic pain; Z91.030 Bee allergy status; Z88.8 Allergy status to other drugs, medicaments and biological substances; Z91.040 Latex allergy status; Z91.018 Allergy to other foods; Z88.5 Allergy status to narcotic agent; Z88.0 Allergy status to penicillin; Z88.6 Allergy status to analgesic agent; Z88.2 Allergy status to sulfonamides
CPT/HCPCS: 36415; 93005; 80053; 82150; 83690; 85025; 81001; 81025; 99285; 96374; 96375; J1200; J2765; J1885

== ENCOUNTER 2021-09-01 10:54 | Emergency (ER) | payer OTHER ==
[2021-09-01 12:46] VITALS: RESP 18; TEMP 98.1
[2021-09-01] MEDS ORDERED: ONDANSETRON ODT 4 MG TAB PO STA (13:22)
[2021-09-01] MEDS ORDERED: SODIUM CHLORIDE 0.9% 1,000 ML IV STA (13:22)
[2021-09-01] MEDS ORDERED: methylPREDNISolone SOD SUCCI 125 MG/2 ML VIAL IV STA (13:24)
[2021-09-01] MEDS ORDERED: HYDROmorphone 0.5 MG/0.5 ML SYRINGE IVP STA (13:24)
[2021-09-01] MEDS ORDERED: ONDANSETRON 4 MG/2 ML VIAL IVP STA (14:10)
[2021-09-01 14:27] LABS: Basophils % (A) 0 %; Eosinophils # (A) 0.1 k/uL (0-0.7); Eosinophils % (A) 1 %; HCT 38.1 % (34.0-46.0); HGB 12.7 gm/dL (11.4-16.0); Lymphocytes # (A) 1.7 k/uL (1.0-4.8); Lymphocytes % (A) 21 %; MCH 32.5 pg (25.0-35.0); MCHC 33.3 g/dL (31.0-37.0); MCV 97.6 fL (80.0-100.0); Mean Platelet Volume 7.7; Monocytes # (A) 0.4 k/uL (0-1.0); Monocytes % (A) 4 %; Neutrophils # (A) 6.1 k/uL (1.3-7.7); Neutrophils % (A) 73 %; Platelet Count 255 k/uL (150-450); RDW 12.6 % (11.5-15.5); WBC 8.4 k/uL (3.8-10.6)
[2021-09-01 14:29] LABS: Appearance,Urine Cloudy (Clear); Bacteria,Urine Rare /hpf; Bilirubin,Urine Negative (Negative); Blood,Urine Negative (Negative); Color,Urine Yellow; Glucose,Urine (UA) 4+ (Negative); Ketones,Urine Negative (Negative); Leukocyte Esterase,Urine Small (Negative); Mucus,Urine Rare /hpf; Nitrite,Urine Negative (Negative); Protein,Urine Negative (Negative); Specific Gravity,Urine 1.018 (1.001-1.035); Squamous Epithelial Cell,Urine 6 /hpf (0-4); Urobilinogen,Urine <2.0 mg/dL (<2.0); WBC,Urine 2 /hpf (0-5)
[2021-09-01 14:35] LABS: ALT 15 U/L (4-34); AST 24 U/L (14-36); African American GFR (CKD) >90 (>60 ml/min/1.73 sqM); Albumin 4.1 g/dL (3.5-5.0); Alkaline Phosphatase 53 U/L (38-126); Anion Gap 7 mmol/L; Blood Urea Nitrogen 10 mg/dL (7-17); Calcium 10.4 mg/dL (8.4-10.2); Carbon Dioxide 24 mmol/L (22-30); Chloride 105 mmol/L (98-107); Glucose 151 mg/dL (74-99); Lipase 562 U/L (23-300); Non-African American GFR(CKD) >90 (>60 ml/min/1.73 sqM); Potassium 4.6 mmol/L (3.5-5.1); Sodium 136 mmol/L (137-145); Total Bilirubin 0.3 mg/dL (0.2-1.3); Total Protein 7.1 g/dL (6.3-8.2)
[2021-09-01] MEDS ORDERED: diphenhydrAMINE 50 MG/ML 1 ML VIAL IM STA (15:10)
[2021-09-01] MEDS ORDERED: KETOROLAC 15 MG/ML 1 ML VIAL IVP STA (15:11)
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
[2021-09-01 15:49] VITALS: BP 114/77; PULSE 99
== END 2021-09-01 15:45 | disposition home or self-care (01) ==
LOC: EC 10:54
DX: K86.1 Other chronic pancreatitis (principal); G43.909 Migraine, unspecified, not intractable, without status migrainosus; J45.909 Unspecified asthma, uncomplicated; E11.9 Type 2 diabetes mellitus without complications; Z88.8 Allergy status to other drugs, medicaments and biological substances; Z91.030 Bee allergy status; Z88.5 Allergy status to narcotic agent; Z88.2 Allergy status to sulfonamides; Z88.0 Allergy status to penicillin; Z91.038 Other insect allergy status
CPT/HCPCS: 36415; 80053; 83690; 85025; 81001; 81025; 99284; 96374; 96375; 96372; J1200; J2930; J2405; J1885; J1170

== ENCOUNTER 2021-09-07 18:25 | Emergency (ER) | payer OTHER ==
[2021-09-07 18:58] VITALS: TEMP 98.7
[2021-09-07] MEDS ORDERED: ONDANSETRON 4 MG/2 ML VIAL IVP STA (22:21)
[2021-09-07] MEDS ORDERED: PANTOPRAZOLE 40 MG/10 ML VIAL IVP STA (22:21)
[2021-09-07] MEDS ORDERED: KETOROLAC 15 MG/ML 1 ML VIAL IVP STA (22:21)
[2021-09-07] MEDS ORDERED: HYDROmorphone 0.5 MG/0.5 ML SYRINGE IVP STA (22:21)
[2021-09-07] MEDS ORDERED: diphenhydrAMINE 50 MG/ML 1 ML VIAL IVP STA (22:21)
[2021-09-07] MEDS ORDERED: SODIUM CHLORIDE 0.9% 1,000 ML IV STA (22:21)
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
[2021-09-07 22:34] LABS: Appearance,Urine Cloudy (Clear); Bacteria,Urine Rare /hpf; Bilirubin,Urine Negative (Negative); Blood,Urine Moderate (Negative); Calcium Oxalate Crystals,Urine Rare /hpf; Color,Urine Yellow; Glucose,Urine (UA) 4+ (Negative); Ketones,Urine Trace (Negative); Leukocyte Esterase,Urine Negative (Negative); Mucus,Urine Few /hpf; Nitrite,Urine Negative (Negative); Protein,Urine Trace (Negative); RBC,Urine 2 /hpf (0-5); Specific Gravity,Urine 1.043 (1.001-1.035); Squamous Epithelial Cell,Urine 4 /hpf (0-4); Urobilinogen,Urine <2.0 mg/dL (<2.0); WBC,Urine 4 /hpf (0-5)
[2021-09-07 23:49] LABS: Basophils % (A) 0 %; Eosinophils % (A) 0 %; HCT 36.1 % (34.0-46.0); HGB 11.8 gm/dL (11.4-16.0); Lymphocytes # (A) 2.5 k/uL (1.0-4.8); Lymphocytes % (A) 23 %; MCH 31.6 pg (25.0-35.0); MCHC 32.7 g/dL (31.0-37.0); MCV 96.7 fL (80.0-100.0); Monocytes # (A) 0.4 k/uL (0-1.0); Monocytes % (A) 4 %; Neutrophils # (A) 7.5 k/uL (1.3-7.7); Neutrophils % (A) 71 %; Platelet Count 337 k/uL (150-450); RBC 3.73 m/uL (3.80-5.40); RDW 12.3 % (11.5-15.5); WBC 10.6 k/uL (3.8-10.6)
[2021-09-07 23:57] VITALS: PULSE 78
[2021-09-08 00:01] LABS: ALT 13 U/L (4-34); AST 15 U/L (14-36); African American GFR (CKD) >90 (>60 ml/min/1.73 sqM); Albumin 4.2 g/dL (3.5-5.0); Alkaline Phosphatase 45 U/L (38-126); Amylase 66 U/L (30-110); Anion Gap 7 mmol/L; Blood Urea Nitrogen 17 mg/dL (7-17); Calcium 10.4 mg/dL (8.4-10.2); Carbon Dioxide 26 mmol/L (22-30); Chloride 104 mmol/L (98-107); Glucose 150 mg/dL (74-99); Lipase 449 U/L (23-300); Non-African American GFR(CKD) >90 (>60 ml/min/1.73 sqM); Potassium 3.8 mmol/L (3.5-5.1); Sodium 137 mmol/L (137-145); Total Bilirubin 0.2 mg/dL (0.2-1.3); Total Protein 7.2 g/dL (6.3-8.2)
[2021-09-08] MEDS ORDERED: HYDROmorphone 0.5 MG/0.5 ML SYRINGE IVP STA ×2 (00:45→03:45)
[2021-09-08] MEDS ORDERED: diphenhydrAMINE 50 MG/ML 1 ML VIAL IVP STA (00:45)
[2021-09-08 00:54] VITALS: BP 106/67; RESP 16
== END 2021-09-08 04:22 | disposition home or self-care (01) ==
LOC: EC 18:25
DX: R10.13 Epigastric pain (principal); R10.30 Lower abdominal pain, unspecified; E11.9 Type 2 diabetes mellitus without complications; K21.9 Gastro-esophageal reflux disease without esophagitis; F32.A Depression, unspecified; F41.9 Anxiety disorder, unspecified; J45.909 Unspecified asthma, uncomplicated; Z59.89 Other problems related to housing and economic circumstances; Z79.84 Long term (current) use of oral hypoglycemic drugs; Z79.899 Other long term (current) drug therapy; Z91.410 Personal history of adult physical and sexual abuse
CPT/HCPCS: 36415; 80053; 82150; 83690; 84484; 85025; 81001; 99284; 96374; 96375 ×4; 96376 ×3; 96361; J1200 ×2; J2405; J1885; C9113; J1170 ×2

== ENCOUNTER 2021-09-10 00:16 | Emergency (ER) | payer OTHER ==
[2021-09-10 00:29] VITALS: BP 103/73; PULSE 110; RESP 16; TEMP 97.8
[2021-09-10] MEDS ORDERED: ONDANSETRON 4 MG TAB PO STA (03:10)
[2021-09-10] MEDS ORDERED: HYDROmorphone 1 MG/ML 1 ML SYRINGE IM STA (03:10)
--- NOTE | 2021-09-10 03:11 | ED ---
Abdominal Pain HPI - General Chief Complaint: Abdominal Pain Stated Complaint: Chest Pain, Abdominal Pain Time Seen by Provider: 09/10/21 02:42 Source: patient, RN notes reviewed, old records reviewed Mode of arrival: ambulatory Limitations: no limitations - History of Present Illness Initial Comments: This is a 30-year-old female well-known to this emergency department today. Patient presents today for evaluation of nausea and abdominal pain elevated heart rate chest pain anxiety. These are all chronic symptoms with patient and she has been in the ER multiple times this week for similar complaints of findings MD Complaint: abdominal pain -: year(s) Location: diffuse Migration to: no migration Severity: moderate Severity scale (1-10): 4 Quality: cramping, aching Consistency: intermittent Improves With: nothing Worsens With: nothing Associated Symptoms: nausea Treatments Prior to Arrival: other (none) - Related Data Home Medications Medication Instructions Recorded Confirmed Fenofibrate [Lofibra] 160 mg PO HS@2100 07/02/21 08/14/21 Midodrine HCl 5 mg PO BID PRN 07/02/21 08/14/21 metFORMIN HCL 500 mg PO BID@0800,1700 07/02/21 08/14/21 ARIPiprazole IM SYRINGE [Abilify 400 mg IM Q30D 07/28/21 08/14/21 Maintena Syringe] Acetaminophen Tab [Tylenol] 1,000 mg PO Q6H PRN 07/28/21 08/14/21 Desvenlafaxine [Desvenlafaxine ER] 50 mg PO DAILY@0800 07/28/21 08/14/21 Dicyclomine [Bentyl] 10 mg PO TID PRN 07/28/21 08/14/21 QUEtiapine [SEROquel] 400 mg PO HS@2100 07/28/21 08/14/21 busPIRone HCL 15 mg PO QID@08,12,16,21 07/28/21 08/14/21 traZODone HCL [Desyrel] 250 mg PO HS@2100 07/28/21 08/14/21 Ibuprofen [Motrin] 600 mg PO TID PRN 08/10/21 08/14/21 Ondansetron [Zofran] 4 mg PO Q8H PRN 08/10/21 08/14/21 Azithromycin [Zithromax] 500 mg PO DAILY 08/14/21 08/14/21 Previous Rx's Medication Instructions Recorded Ondansetron Odt [Zofran Odt] 4 mg PO Q8HR PRN #12 tab 09/01/21 Allergies Allergy/AdvReac Type Severity Reaction Status Date / Time bee pollen Allergy Severe Anaphylaxis Verified 09/13/21 22:53 haloperidol [From Haldol] Allergy Severe QUIT Verified 09/13/21 22:53 BREATHING haloperidol lactate Allergy Severe QUIT Verified 09/13/21 22:53 [From Haldol] BREATHING latex Allergy Severe RASH-THROAT Verified 09/13/21 22:53 CLOSES [place] Allergy Anaphylaxis Verified 09/13/21 22:53 coconut Allergy Anaphylaxis Verified 09/13/21 22:53 morphine Allergy Rash/Hives Verified 09/13/21 22:53 pineapple Allergy Anaphylaxis Verified 09/13/21 22:53 prednisone Allergy THROAT Verified 09/13/21 22:53 SWELLS spider venom Allergy Swelling Verified 09/13/21 22:53 Sulfa (Sulfonamide Allergy THROAT Verified 09/13/21 22:53 Antibiotics) SWELLS venom-wasp Allergy Swelling Verified 09/13/21 22:53 venom-wasp protein Allergy Swelling Verified 09/13/21 22:53 promethazine HCl AdvReac Severe Nausea & Verified 09/13/21 22:53 [From Phenergan] Vomiting tramadol AdvReac Severe Nausea & Verified 09/13/21 22:53 Vomiting amoxicillin AdvReac Nausea & Verified 09/13/21 22:53 Vomiting ANTS AdvReac Mild Anaphylaxis Uncoded 09/13/21 22:53 Review of Systems ROS Statement: Those systems with pertinent positive or pertinent negative responses have been documented in the HPI. ROS Other: All systems not noted in ROS Statement are negative. Past Medical History Past Medical History: Asthma, Diabetes Mellitus, GERD/Reflux Additional Past Medical History / Comment(s): migraines, degenerative disk disease, endometriosis, lupus, pancreatitis, DM2- diet controlled History of Any Multi-Drug Resistant Organisms: None Reported Past Surgical History: Orthopedic Surgery Additional Past Surgical History / Comment(s): laparoscopc surgery for endometriosis, cyst removed from left foot, EGD, Past Anesthesia/Blood Transfusion Reactions: Previous Problems w/ Anesthesia Additional Past Anesthesia/Blood Transfusion Reaction / Comment(s): hard to wake up for 48-72 hours after laparoscopic surgery-was in hosp. for 3 days Past Psychological History: Anxiety, Depression, PTSD Smoking Status: Never smoker Past Alcohol Use History: None Reported Past Drug Use History: None Reported - Past Family History Mother Family Medical History: No Reported History Additional Family Medical History / Comment(s): hx migraines Father Family Medical History: Coronary Artery Disease (CAD), Hypertension Additional Family Medical History / Comment(s): ddd, alcoholism & drug use General Exam Limitations: no limitations General appearance: alert, in no apparent distress, anxious Head exam: Present: atraumatic, normocephalic, normal inspection Eye exam: Present: normal appearance, PERRL, EOMI. Absent: scleral icterus, conjunctival injection, periorbital swelling ENT exam: Present: normal exam, mucous membranes moist Neck exam: Present: normal inspection. Absent: tenderness, meningismus, lymphadenopathy Respiratory exam: Present: normal lung sounds bilaterally. Absent: respiratory distress, wheezes, rales, rhonchi, stridor Cardiovascular Exam: Present: normal rhythm, tachycardia, normal heart sounds. Absent: systolic murmur, diastolic murmur, rubs, gallop, clicks GI/Abdominal exam: Present: soft, normal bowel sounds. Absent: distended, tenderness, guarding, rebound, rigid Extremities exam: Present: normal inspection, full ROM, normal capillary refill. Absent: tenderness, pedal edema, joint swelling, calf tenderness Back exam: Present: normal inspection Neurological exam: Present: alert, oriented X3, CN II-XII intact Psychiatric exam: Present: normal affect, normal mood Skin exam: Present: warm, dry, intact, normal color. Absent: rash Course Vital Signs 09/10/21 00:27 Temperature 97.8 F Pulse Rate 110 H Respiratory 16 Rate Blood Pressure 103/73 O2 Sat by Pulse 97 Oximetry - Reevaluation(s) Reevaluation #1: 09/10/21 Records reviewed Reevaluation #2: 09/10/21 Patient informed of results and questions answered Medical Decision Making - Medical Decision Making 30 female well-known for acute on chronic pain here in the ER. Patient at this time is in no acute distress and can be discharged home - EKG Data -: EKG Interpreted by Me (EKG shows sinus tachycardia 109 HI 142 QRS 92 QTC 399) Disposition Clinical Impression: Abdominal pain Disposition: HOME SELF-CARE Condition: Fair Instructions (If sedation given, give patient instructions): Abdominal Pain (ED) Is patient prescribed a controlled substance at d/c from ED?: No Referrals: Katarzyna Bocanegra MD [STAFF PHYSICIAN] - 1-2 days Decision Time: 03:45
== END 2021-09-10 04:15 | disposition home or self-care (01) ==
LOC: EC 00:16
DX: Z91.030 Bee allergy status (principal); R10.9 Unspecified abdominal pain; J45.909 Unspecified asthma, uncomplicated; E11.9 Type 2 diabetes mellitus without complications; Z88.8 Allergy status to other drugs, medicaments and biological substances; Z91.040 Latex allergy status; Z88.5 Allergy status to narcotic agent; Z88.2 Allergy status to sulfonamides; Z88.0 Allergy status to penicillin; Z88.1 Allergy status to other antibiotic agents
CPT/HCPCS: 93005; 99284; 96372; J1170

== ENCOUNTER 2021-09-11 20:55 | Emergency (ER) | payer OTHER ==
[2021-09-11 21:11] VITALS: RESP 18; TEMP 98.1
[2021-09-11] MEDS ORDERED: hydrOXYzine HCL 50 MG/ML 1 ML VIAL IM STA (22:40)
[2021-09-11] MEDS ORDERED: ACETAMINOPHEN TAB 500 MG TAB PO STA (22:41)
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
[2021-09-11 23:20] LABS: Basophils # (A) 0.1 k/uL (0-0.2); Basophils % (A) 1 %; Eosinophils # (A) 0.1 k/uL (0-0.7); Eosinophils % (A) 1 %; HCT 37.8 % (34.0-46.0); HGB 12.2 gm/dL (11.4-16.0); Lymphocytes # (A) 2.2 k/uL (1.0-4.8); Lymphocytes % (A) 33 %; MCH 31.2 pg (25.0-35.0); MCHC 32.2 g/dL (31.0-37.0); MCV 96.8 fL (80.0-100.0); Mean Platelet Volume 7.9; Monocytes # (A) 0.3 k/uL (0-1.0); Monocytes % (A) 4 %; Neutrophils # (A) 4.1 k/uL (1.3-7.7); Neutrophils % (A) 60 %; Platelet Count 305 k/uL (150-450); RBC 3.91 m/uL (3.80-5.40); RDW 12.2 % (11.5-15.5); WBC 6.8 k/uL (3.8-10.6)
[2021-09-11 23:29] LABS: ALT 14 U/L (4-34); AST 19 U/L (14-36); African American GFR (CKD) >90 (>60 ml/min/1.73 sqM); Albumin 3.9 g/dL (3.5-5.0); Alkaline Phosphatase 60 U/L (38-126); Anion Gap 7 mmol/L; Blood Urea Nitrogen 11 mg/dL (7-17); Calcium 10.3 mg/dL (8.4-10.2); Carbon Dioxide 26 mmol/L (22-30); Chloride 102 mmol/L (98-107); Glucose 217 mg/dL (74-99); Lipase 479 U/L (23-300); Non-African American GFR(CKD) >90 (>60 ml/min/1.73 sqM); Potassium 4.3 mmol/L (3.5-5.1); Sodium 135 mmol/L (137-145); Total Bilirubin 0.2 mg/dL (0.2-1.3); Total Protein 6.9 g/dL (6.3-8.2)
[2021-09-11 23:36] LABS: Amorphous Sediment,Urine Occasional /hpf; Appearance,Urine Cloudy (Clear); Bacteria,Urine Rare /hpf; Bilirubin,Urine Negative (Negative); Blood,Urine Negative (Negative); Color,Urine Light Yellow; Glucose,Urine (UA) 4+ (Negative); Hyaline Casts,Urine 1 /lpf (0-2); Ketones,Urine Negative (Negative); Leukocyte Esterase,Urine Large (Negative); Mucus,Urine Rare /hpf; Nitrite,Urine Negative (Negative); PH, Urine 7.5 (5.0-8.0); Protein,Urine Negative (Negative); RBC,Urine 1 /hpf (0-5); Specific Gravity,Urine 1.012 (1.001-1.035); Squamous Epithelial Cell,Urine 8 /hpf (0-4); Urobilinogen,Urine <2.0 mg/dL (<2.0); WBC,Urine 17 /hpf (0-5)
[2021-09-12] MEDS ORDERED: KETOROLAC 15 MG/ML 1 ML VIAL IVP STA (01:54)
[2021-09-12] MEDS ORDERED: diphenhydrAMINE 50 MG/ML 1 ML VIAL IM STA (01:59)
[2021-09-12] MEDS ORDERED: KETOROLAC 15 MG/ML 1 ML VIAL IM STA (02:13)
[2021-09-12 03:01] VITALS: BP 104/75; PULSE 102
== END 2021-09-12 03:02 | disposition home or self-care (01) ==
LOC: EC 20:55
DX: T74.21XA Adult sexual abuse, confirmed, initial encounter (principal); G89.29 Other chronic pain; R10.9 Unspecified abdominal pain; R51.9 Headache, unspecified; J45.909 Unspecified asthma, uncomplicated; E11.9 Type 2 diabetes mellitus without complications; K21.9 Gastro-esophageal reflux disease without esophagitis; Z88.1 Allergy status to other antibiotic agents; Z88.5 Allergy status to narcotic agent; Z88.8 Allergy status to other drugs, medicaments and biological substances; Z88.2 Allergy status to sulfonamides; Z91.018 Allergy to other foods; Z91.030 Bee allergy status; Z91.041 Radiographic dye allergy status; Z91.038 Other insect allergy status; Z79.899 Other long term (current) drug therapy; Z79.84 Long term (current) use of oral hypoglycemic drugs
CPT/HCPCS: 99285; 96372 ×2; 36415; 80053; 83690; 85025; 81001; 81025; 87086; J3410; 87070; 87491; 87591; 87808

== ENCOUNTER 2021-09-13 21:49 | Emergency (ER) | payer OTHER ==
[2021-09-14] MEDS ORDERED: KETOROLAC 15 MG/ML 1 ML VIAL IVP STA (00:26)
[2021-09-14] MEDS ORDERED: PANTOPRAZOLE 40 MG/10 ML VIAL IVP STA (00:26)
[2021-09-14] MEDS ORDERED: SODIUM CHLORIDE 0.9% 1,000 ML IV STA (00:26)
[2021-09-14] MEDS ORDERED: diphenhydrAMINE 50 MG/ML 1 ML VIAL IVP STA (00:26)
--- NOTE | 2021-09-14 00:31 | ED ---
General Adult HPI - General Chief complaint: Nausea/Vomiting/Diarrhea Stated complaint: Abd pains/Vomiting Time Seen by Provider: 09/14/21 00:20 Source: patient, RN notes reviewed, old records reviewed Mode of arrival: ambulatory Limitations: no limitations - History of Present Illness Initial comments: Patient presents with upper abdominal pain for the past 3 days and today with persistent nausea and vomiting. No hematochezia. States she is unable to even keep water down. Denies any fevers. States it feels like when she had pancreatitis in the past. No shortness of breath or chest pain. Denies any dysuria or vaginal discharge. -: days(s) (3) Location: abdomen (upper left mid and right) Severity scale (1-10): 9 Quality: constant Consistency: constant Improves with: none Associated Symptoms: nausea/vomiting - Related Data Home Medications Medication Instructions Recorded Confirmed Fenofibrate [Lofibra] 160 mg PO HS@2100 07/02/21 08/14/21 Midodrine HCl 5 mg PO BID PRN 07/02/21 08/14/21 metFORMIN HCL 500 mg PO BID@0800,1700 07/02/21 08/14/21 ARIPiprazole IM SYRINGE [Abilify 400 mg IM Q30D 07/28/21 08/14/21 Maintena Syringe] Acetaminophen Tab [Tylenol] 1,000 mg PO Q6H PRN 07/28/21 08/14/21 Desvenlafaxine [Desvenlafaxine ER] 50 mg PO DAILY@0800 07/28/21 08/14/21 Dicyclomine [Bentyl] 10 mg PO TID PRN 07/28/21 08/14/21 QUEtiapine [SEROquel] 400 mg PO HS@2100 07/28/21 08/14/21 busPIRone HCL 15 mg PO QID@08,12,16,21 07/28/21 08/14/21 traZODone HCL [Desyrel] 250 mg PO HS@2100 07/28/21 08/14/21 Ibuprofen [Motrin] 600 mg PO TID PRN 08/10/21 08/14/21 Ondansetron [Zofran] 4 mg PO Q8H PRN 08/10/21 08/14/21 Azithromycin [Zithromax] 500 mg PO DAILY 08/14/21 08/14/21 Previous Rx's Medication Instructions Recorded Ondansetron Odt [Zofran Odt] 4 mg PO Q8HR PRN #12 tab 09/01/21 Allergies Allergy/AdvReac Type Severity Reaction Status Date / Time bee pollen Allergy Severe Anaphylaxis Verified 09/13/21 22:53 haloperidol [From Haldol] Allergy Severe QUIT Verified 09/13/21 22:53 BREATHING haloperidol lactate Allergy Severe QUIT Verified 09/13/21 22:53 [From Haldol] BREATHING latex Allergy Severe RASH-THROAT Verified 09/13/21 22:53 CLOSES [place] Allergy Anaphylaxis Verified 09/13/21 22:53 coconut Allergy Anaphylaxis Verified 09/13/21 22:53 morphine Allergy Rash/Hives Verified 09/13/21 22:53 pineapple Allergy Anaphylaxis Verified 09/13/21 22:53 prednisone Allergy THROAT Verified 09/13/21 22:53 SWELLS spider venom Allergy Swelling Verified 09/13/21 22:53 Sulfa (Sulfonamide Allergy THROAT Verified 09/13/21 22:53 Antibiotics) SWELLS venom-wasp Allergy Swelling Verified 09/13/21 22:53 venom-wasp protein Allergy Swelling Verified 09/13/21 22:53 promethazine HCl AdvReac Severe Nausea & Verified 09/13/21 22:53 [From Phenergan] Vomiting tramadol AdvReac Severe Nausea & Verified 09/13/21 22:53 Vomiting amoxicillin AdvReac Nausea & Verified 09/13/21 22:53 Vomiting ANTS AdvReac Mild Anaphylaxis Uncoded 09/13/21 22:53 Review of Systems ROS Statement: Those systems with pertinent positive or pertinent negative responses have been documented in the HPI. ROS Other: All systems not noted in ROS Statement are negative. Past Medical History Past Medical History: Asthma, Diabetes Mellitus, GERD/Reflux Additional Past Medical History / Comment(s): migraines, degenerative disk disease, endometriosis, lupus, pancreatitis, DM2- diet controlled History of Any Multi-Drug Resistant Organisms: None Reported Past Surgical History: Orthopedic Surgery Additional Past Surgical History / Comment(s): laparoscopc surgery for endometriosis, cyst removed from left foot, EGD, Past Anesthesia/Blood Transfusion Reactions: Previous Problems w/ Anesthesia Additional Past Anesthesia/Blood Transfusion Reaction / Comment(s): hard to wake up for 48-72 hours after laparoscopic surgery-was in hosp. for 3 days Past Psychological History: Anxiety, Depression, PTSD Smoking Status: Never smoker Past Alcohol Use History: None Reported Past Drug Use History: None Reported - Past Family History Mother Family Medical History: No Reported History Additional Family Medical History / Comment(s): hx migraines Father Family Medical History: Coronary Artery Disease (CAD), Hypertension Additional Family Medical History / Comment(s): ddd, alcoholism & drug use General Exam Limitations: no limitations General appearance: alert, in no apparent distress Head exam: Present: atraumatic Eye exam: Present: normal appearance, EOMI. Absent: scleral icterus, conjunctival injection, periorbital swelling ENT exam: Present: mucous membranes moist Neck exam: Present: normal inspection, full ROM. Absent: tenderness, meningismus Respiratory exam: Present: normal lung sounds bilaterally. Absent: respiratory distress, accessory muscle use Cardiovascular Exam: Present: tachycardia GI/Abdominal exam: Present: soft, tenderness (Upper abdominal pain right, left and mid). Absent: rigid Extremities exam: Present: full ROM, normal capillary refill, other (Patient does have a walking boot on her left foot , fracture 3 weeks ago scheduled for surgery in October). Absent: tenderness, pedal edema Back exam: Absent: tenderness, CVA tenderness (R), CVA tenderness (L) Neurological exam: Present: alert, oriented X3 Psychiatric exam: Present: normal affect, normal mood Skin exam: Present: warm, normal color. Absent: cyanosis, diaphoretic Course Vital Signs 09/13/21 09/14/21 22:50 02:58 Temperature 98.5 F 98 F Pulse Rate 132 H 99 Respiratory 18 22 Rate Blood Pressure 102/74 129/79 O2 Sat by Pulse 98 98 Oximetry Medical Decision Making - Medical Decision Making Patient presents with upper abdominal pain for 3 days, vomiting today. Denies hematemesis. Denies any fevers. Abdomen is soft, no right lower quadrant pain. States pain is upper abdominal. She does have a history of cholecystectomy. Labs show no evidence of leukocytosis. No evidence of DKA, or pancreatitis. No dehydration or urinary tract infection. Patient was given a liter of fluid, Toradol, Benadryl and Protonix. Patient states she continues to have some upper abdominal pain however nausea has resolved. Patient was given a dose of Dilaudid and is agreeable to being discharged home to follow-up with her primary care doctor. Case discussed with Dr. Turner - Lab Data Result diagrams: 09/14/21 00:33 09/14/21 00:33 Lab Results 09/14/21 09/14/21 09/14/21 Range/Units 00:33 00:33 00:33 WBC 7.1 (3.8-10.6) k/uL RBC 3.79 L (3.80-5.40) m/uL Hgb 12.3 (11.4-16.0) gm/dL Hct 36.4 (34.0-46.0) % MCV 96.0 (80.0-100.0) fL MCH 32.5 (25.0-35.0) pg MCHC 33.9 (31.0-37.0) g/dL RDW 12.8 (11.5-15.5) % Plt Count 316 (150-450) k/uL MPV 7.7 Neutrophils % 72 % Lymphocytes % 22 % Monocytes % 3 % Eosinophils % 1 % Basophils % 0 % Neutrophils # 5.1 (1.3-7.7) k/uL Lymphocytes # 1.6 (1.0-4.8) k/uL Monocytes # 0.2 (0-1.0) k/uL Eosinophils # 0.1 (0-0.7) k/uL Basophils # 0.0 (0-0.2) k/uL PT (9.0-12.0) sec INR (<1.2) APTT (22.0-30.0) sec Sodium 133 L (137-145) mmol/L Potassium 4.4 (3.5-5.1) mmol/L Chloride 102 (98-107) mmol/L Carbon Dioxide 25 (22-30) mmol/L Anion Gap 6 mmol/L BUN 8 (7-17) mg/dL Creatinine 0.68 (0.52-1.04) mg/dL Est GFR (CKD-EPI)AfAm >90 (>60 ml/min/1.73 sqM) Est GFR (CKD-EPI)NonAf >90 (>60 ml/min/1.73 sqM) Glucose 203 H (74-99) mg/dL POC Glucose (mg/dL) (75-99) mg/dL POC Glu Awnings Mechanic ID Plasma Lactic Acid [place] (0.7-2.0) mmol/L Calcium 10.1 (8.4-10.2) mg/dL Total Bilirubin 0.3 (0.2-1.3) mg/dL AST 17 (14-36) U/L ALT 13 (4-34) U/L Alkaline Phosphatase 44 (38-126) U/L Total Protein 7.1 (6.3-8.2) g/dL Albumin 4.0 (3.5-5.0) g/dL Amylase 57 (30-110) U/L Lipase 322 H (23-300) U/L Urine Color Light Yellow Urine Appearance Cloudy H (Clear) Urine pH 7.0 (5.0-8.0) Ur Specific [place] 1.028 (1.001-1.035) Urine Protein Negative (Negative) Urine Glucose (UA) 4+ H (Negative) Urine Ketones Negative (Negative) Urine Blood Negative (Negative) Urine Nitrite Negative (Negative) Urine Bilirubin Negative (Negative) Urine Urobilinogen <2.0 (<2.0) mg/dL Ur Leukocyte Esterase Large H (Negative) Urine RBC 1 (0-5) /hpf Urine WBC 9 H (0-5) /hpf Ur Squamous Epith Cells 3 (0-4) /hpf Urine Mucus Rare H (None) /hpf 09/14/21 09/14/21 09/14/21 Range/Units 00:33 00:33 01:45 WBC (3.8-10.6) k/uL RBC (3.80-5.40) m/uL Hgb (11.4-16.0) gm/dL Hct (34.0-46.0) % MCV (80.0-100.0) fL MCH (25.0-35.0) pg MCHC (31.0-37.0) g/dL RDW (11.5-15.5) % Plt Count (150-450) k/uL MPV Neutrophils % % Lymphocytes % % Monocytes % % Eosinophils % % Basophils % % Neutrophils # (1.3-7.7) k/uL Lymphocytes # (1.0-4.8) k/uL Monocytes # (0-1.0) k/uL Eosinophils # (0-0.7) k/uL Basophils # (0-0.2) k/uL PT 11.0 (9.0-12.0) sec INR 1.0 (<1.2) APTT 22.1 (22.0-30.0) sec Sodium (137-145) mmol/L Potassium (3.5-5.1) mmol/L Chloride (98-107) mmol/L Carbon Dioxide (22-30) mmol/L Anion Gap mmol/L BUN (7-17) mg/dL Creatinine (0.52-1.04) mg/dL Est GFR (CKD-EPI)AfAm (>60 ml/min/1.73 sqM) Est GFR (CKD-EPI)NonAf (>60 ml/min/1.73 sqM) Glucose (74-99) mg/dL POC Glucose (mg/dL) 201 H (75-99) mg/dL POC Glu Awnings Mechanic ID José Haas Plasma Lactic Acid [place] 1.2 (0.7-2.0) mmol/L Calcium (8.4-10.2) mg/dL Total Bilirubin (0.2-1.3) mg/dL AST (14-36) U/L ALT (4-34) U/L Alkaline Phosphatase (38-126) U/L Total Protein (6.3-8.2) g/dL Albumin (3.5-5.0) g/dL Amylase (30-110) U/L Lipase (23-300) U/L Urine Color Urine Appearance (Clear) Urine pH (5.0-8.0) Ur Specific [place] (1.001-1.035) Urine Protein (Negative) Urine Glucose (UA) (Negative) Urine Ketones (Negative) Urine Blood (Negative) Urine Nitrite (Negative) Urine Bilirubin (Negative) Urine Urobilinogen (<2.0) mg/dL Ur Leukocyte Esterase (Negative) Urine RBC (0-5) /hpf Urine WBC (0-5) /hpf Ur Squamous Epith Cells (0-4) /hpf Urine Mucus (None) /hpf Disposition Clinical Impression: Abdominal pain of unknown etiology Disposition: HOME SELF-CARE Condition: Good Instructions (If sedation given, give patient instructions): Abdominal Pain (ED) Additional Instructions: Continue previously prescribed medications and follow-up with your primary care doctor next week. Return to the emergency room with any new or concerning symptoms including increased abdominal pain, fevers or persistent nausea vomiting. Is patient prescribed a controlled substance at d/c from ED?: No Referrals: Isi Carolina MD [Primary Care Provider] - 1-2 days Time of Disposition: 02:23
[2021-09-14 01:00] LABS: Appearance,Urine Cloudy (Clear); Bilirubin,Urine Negative (Negative); Blood,Urine Negative (Negative); Color,Urine Light Yellow; Glucose,Urine (UA) 4+ (Negative); Ketones,Urine Negative (Negative); Leukocyte Esterase,Urine Large (Negative); Mucus,Urine Rare /hpf; Nitrite,Urine Negative (Negative); Protein,Urine Negative (Negative); RBC,Urine 1 /hpf (0-5); Specific Gravity,Urine 1.028 (1.001-1.035); Squamous Epithelial Cell,Urine 3 /hpf (0-4); Urobilinogen,Urine <2.0 mg/dL (<2.0); WBC,Urine 9 /hpf (0-5)
[2021-09-14 01:47] LABS: Glucose,Whole Blood 201 mg/dL (75-99)
[2021-09-14 02:00] LABS: ALT 13 U/L (4-34); AST 17 U/L (14-36); African American GFR (CKD) >90 (>60 ml/min/1.73 sqM); Alkaline Phosphatase 44 U/L (38-126); Amylase 57 U/L (30-110); Anion Gap 6 mmol/L; Blood Urea Nitrogen 8 mg/dL (7-17); Calcium 10.1 mg/dL (8.4-10.2); Carbon Dioxide 25 mmol/L (22-30); Chloride 102 mmol/L (98-107); Glucose 203 mg/dL (74-99); Lipase 322 U/L (23-300); Non-African American GFR(CKD) >90 (>60 ml/min/1.73 sqM); Potassium 4.4 mmol/L (3.5-5.1); Sodium 133 mmol/L (137-145); Total Bilirubin 0.3 mg/dL (0.2-1.3); Total Protein 7.1 g/dL (6.3-8.2)
[2021-09-14 02:02] LABS: Partial Thromboplastin Time 22.1 sec (22.0-30.0)
[2021-09-14 02:08] LABS: Basophils % (A) 0 %; Eosinophils # (A) 0.1 k/uL (0-0.7); Eosinophils % (A) 1 %; HCT 36.4 % (34.0-46.0); HGB 12.3 gm/dL (11.4-16.0); Lymphocytes # (A) 1.6 k/uL (1.0-4.8); Lymphocytes % (A) 22 %; MCH 32.5 pg (25.0-35.0); MCHC 33.9 g/dL (31.0-37.0); Mean Platelet Volume 7.7; Monocytes # (A) 0.2 k/uL (0-1.0); Monocytes % (A) 3 %; Neutrophils # (A) 5.1 k/uL (1.3-7.7); Neutrophils % (A) 72 %; Platelet Count 316 k/uL (150-450); RBC 3.79 m/uL (3.80-5.40); RDW 12.8 % (11.5-15.5); WBC 7.1 k/uL (3.8-10.6)
[2021-09-14] MEDS ORDERED: HYDROmorphone 1 MG/ML 1 ML SYRINGE IVP STA (02:23)
[2021-09-14 02:58] VITALS: BP 129/79; PULSE 99; RESP 22; TEMP 98
== END 2021-09-14 03:02 | disposition home or self-care (01) ==
LOC: EC 21:49
DX: R10.10 Upper abdominal pain, unspecified (principal); E11.9 Type 2 diabetes mellitus without complications; K21.9 Gastro-esophageal reflux disease without esophagitis; J45.909 Unspecified asthma, uncomplicated; Z79.84 Long term (current) use of oral hypoglycemic drugs; Z88.0 Allergy status to penicillin; Z88.2 Allergy status to sulfonamides; Z88.5 Allergy status to narcotic agent; Z88.8 Allergy status to other drugs, medicaments and biological substances; Z91.030 Bee allergy status; Z91.040 Latex allergy status; Z91.018 Allergy to other foods; Z88.1 Allergy status to other antibiotic agents; Z91.038 Other insect allergy status; Z88.6 Allergy status to analgesic agent; Z79.899 Other long term (current) drug therapy
CPT/HCPCS: 36415; 93005; 80053; 82150; 83605; 83690; 85025; 85610; 85730; 81001; 99284; 96374; 96375; 96361; J1200; J1170; J1885; C9113

== ENCOUNTER 2021-09-15 12:51 | Emergency (ER) | payer OTHER ==
[2021-09-15 13:03] VITALS: TEMP 98.3
[2021-09-15] MEDS ORDERED: SODIUM CHLORIDE 0.9% 2,000 ML IV STA (15:38)
[2021-09-15] MEDS ORDERED: METOCLOPRAMIDE 5 MG/ML 2 ML VIAL IVP STA (15:40)
[2021-09-15] MEDS ORDERED: diphenhydrAMINE 50 MG/ML 1 ML VIAL IVP STA (15:40)
--- NOTE | 2021-09-15 15:45 | ED ---
Abdominal Pain HPI - General Chief Complaint: Abdominal Pain Stated Complaint: abd pain Time Seen by Provider: 09/15/21 15:38 Source: patient, RN notes reviewed Mode of arrival: ambulatory Limitations: no limitations - History of Present Illness Initial Comments: Patient with history of chronic Recurrent abdominal pain presents with epigastric pain, nausea, vomiting for 2 days. Denies any hematemesis or coffee- ground emesis. No melena or hematochezia. No diarrhea. Patient sees E a account management assistant recurrently. Patient has multiple emergency room visits to this facility which entails several times per week for the last several months. No headache, no fever or chills, no changes in vision or hearing, no sore throat or difficulty with speech, no neck pain, no chest pain or shortness of breath, no changes in urination or bowel movements, no numbness or tingling, no extremity pain, no skin rashes or lesions. Previous has had pancreatitis. Previous cholecystectomy. MD Complaint: abdominal pain - Related Data Home Medications Medication Instructions Recorded Confirmed Fenofibrate [Lofibra] 160 mg PO HS@2100 07/02/21 08/14/21 Midodrine HCl 5 mg PO BID PRN 07/02/21 08/14/21 metFORMIN HCL 500 mg PO BID@0800,1700 07/02/21 08/14/21 ARIPiprazole IM SYRINGE [Abilify 400 mg IM Q30D 07/28/21 08/14/21 Maintena Syringe] Acetaminophen Tab [Tylenol] 1,000 mg PO Q6H PRN 07/28/21 08/14/21 Desvenlafaxine [Desvenlafaxine ER] 50 mg PO DAILY@0800 07/28/21 08/14/21 Dicyclomine [Bentyl] 10 mg PO TID PRN 07/28/21 08/14/21 QUEtiapine [SEROquel] 400 mg PO HS@2100 07/28/21 08/14/21 busPIRone HCL 15 mg PO QID@08,12,16,21 07/28/21 08/14/21 traZODone HCL [Desyrel] 250 mg PO HS@2100 07/28/21 08/14/21 Ibuprofen [Motrin] 600 mg PO TID PRN 08/10/21 08/14/21 Ondansetron [Zofran] 4 mg PO Q8H PRN 08/10/21 08/14/21 Azithromycin [Zithromax] 500 mg PO DAILY 08/14/21 08/14/21 Previous Rx's Medication Instructions Recorded Ondansetron Odt [Zofran Odt] 4 mg PO Q8HR PRN #12 tab 09/01/21 Allergies Allergy/AdvReac Type Severity Reaction Status Date / Time bee pollen Allergy Severe Anaphylaxis Verified 09/15/21 13:03 haloperidol [From Haldol] Allergy Severe QUIT Verified 09/15/21 13:03 BREATHING haloperidol lactate Allergy Severe QUIT Verified 09/15/21 13:03 [From Haldol] BREATHING latex Allergy Severe RASH-THROAT Verified 09/15/21 13:03 CLOSES [place] Allergy Anaphylaxis Verified 09/15/21 13:03 coconut Allergy Anaphylaxis Verified 09/15/21 13:03 morphine Allergy Rash/Hives Verified 09/15/21 13:03 pineapple Allergy Anaphylaxis Verified 09/15/21 13:03 prednisone Allergy THROAT Verified 09/15/21 13:03 SWELLS spider venom Allergy Swelling Verified 09/15/21 13:03 Sulfa (Sulfonamide Allergy THROAT Verified 09/15/21 13:03 Antibiotics) SWELLS venom-wasp Allergy Swelling Verified 09/15/21 13:03 venom-wasp protein Allergy Swelling Verified 09/15/21 13:03 promethazine HCl AdvReac Severe Nausea & Verified 09/15/21 13:03 [From Phenergan] Vomiting tramadol AdvReac Severe Nausea & Verified 09/15/21 13:03 Vomiting amoxicillin AdvReac Nausea & Verified 09/15/21 13:03 Vomiting ANTS AdvReac Mild Anaphylaxis Uncoded 09/15/21 13:03 Review of Systems ROS Statement: Those systems with pertinent positive or pertinent negative responses have been documented in the HPI. ROS Other: All systems not noted in ROS Statement are negative. Past Medical History Past Medical History: Asthma, Diabetes Mellitus, GERD/Reflux Additional Past Medical History / Comment(s): migraines, degenerative disk disease, endometriosis, lupus, pancreatitis, DM2- diet controlled History of Any Multi-Drug Resistant Organisms: None Reported Past Surgical History: Orthopedic Surgery Additional Past Surgical History / Comment(s): laparoscopc surgery for endometriosis, cyst removed from left foot, EGD, Past Anesthesia/Blood Transfusion Reactions: Previous Problems w/ Anesthesia Additional Past Anesthesia/Blood Transfusion Reaction / Comment(s): hard to wake up for 48-72 hours after laparoscopic surgery-was in hosp. for 3 days Past Psychological History: Anxiety, Depression, PTSD Smoking Status: Never smoker Past Alcohol Use History: None Reported Past Drug Use History: None Reported - Past Family History Mother Family Medical History: No Reported History Additional Family Medical History / Comment(s): hx migraines Father Family Medical History: Coronary Artery Disease (CAD), Hypertension Additional Family Medical History / Comment(s): ddd, alcoholism & drug use General Exam Limitations: no limitations General appearance: alert, in distress Head exam: Present: atraumatic, normocephalic, normal inspection Eye exam: Present: normal appearance, PERRL, EOMI. Absent: scleral icterus, conjunctival injection, periorbital swelling ENT exam: Present: normal exam, normal oropharynx, mucous membranes moist, normal external ear exam. Absent: mucous membranes dry Neck exam: Present: normal inspection, full ROM. Absent: tenderness, meningism us, lymphadenopathy Respiratory exam: Present: normal lung sounds bilaterally. Absent: respiratory distress, wheezes, rales, rhonchi, stridor, chest wall tenderness, accessory muscle use Cardiovascular Exam: Present: normal rhythm, tachycardia (104At the time I assessed the patient), normal heart sounds. Absent: systolic murmur, diastolic murmur, rubs, gallop, clicks GI/Abdominal exam: Present: soft, tenderness (Epigastrium), normal bowel sounds. Absent: distended, guarding, rebound, rigid Extremities exam: Present: normal inspection, full ROM, normal capillary refill. Absent: tenderness, pedal edema, joint swelling, calf tenderness Back exam: Present: normal inspection Neurological exam: Present: alert, oriented X3, CN II-XII intact Psychiatric exam: Present: normal affect, normal mood Skin exam: Present: warm, dry, intact, normal color. Absent: rash Course Vital Signs 09/15/21 09/15/21 09/15/21 13:01 15:53 19:02 Temperature 98.3 F Pulse Rate 124 H 118 H 108 H Respiratory 22 18 Rate Blood Pressure 118/73 102/58 O2 Sat by Pulse 98 99 97 Oximetry - Reevaluation(s) Reevaluation #1: 09/15/21 19:06 Medical record is reviewed Symptoms are improved here in the emergency department Patient is informed of results and questions answered Patient in no distress Patient improved, patient feels well to go home. There is no vomiting. Able to hold down fluids. Medical Decision Making - Medical Decision Making She presents with recurrent abdominal pain which is similar to the patient's chronic and recurrent abdominal pain. Patient has a account management assistant. Patient had no vomiting here in the ER. Patient able to hold down fluids. Follow-up with your regular physician as directed. Return to the ER immediately if any symptoms worsen, new symptoms arise, or any other problems develop. Marketing Officer Dr. Funk - Lab Data Result diagrams: 09/15/21 15:54 09/15/21 15:54 Lab Results 09/15/21 09/15/21 09/15/21 Range/Units 15:54 15:54 15:54 WBC 7.5 (3.8-10.6) k/uL RBC 3.86 (3.80-5.40) m/uL Hgb 12.1 (11.4-16.0) gm/dL Hct 37.3 (34.0-46.0) % MCV 96.7 (80.0-100.0) fL MCH 31.3 (25.0-35.0) pg MCHC 32.3 (31.0-37.0) g/dL RDW 12.3 (11.5-15.5) % Plt Count 326 (150-450) k/uL MPV 8.0 Neutrophils % 74 % Lymphocytes % 20 % Monocytes % 4 % Eosinophils % 1 % Basophils % 0 % Neutrophils # 5.6 (1.3-7.7) k/uL Lymphocytes # 1.5 (1.0-4.8) k/uL Monocytes # 0.3 (0-1.0) k/uL Eosinophils # 0.1 (0-0.7) k/uL Basophils # 0.0 (0-0.2) k/uL Sodium (137-145) mmol/L Potassium (3.5-5.1) mmol/L Chloride (98-107) mmol/L Carbon Dioxide (22-30) mmol/L Anion Gap mmol/L BUN (7-17) mg/dL Creatinine (0.52-1.04) mg/dL Est GFR (CKD-EPI)AfAm (>60 ml/min/1.73 sqM) Est GFR (CKD-EPI)NonAf (>60 ml/min/1.73 sqM) Glucose (74-99) mg/dL Calcium (8.4-10.2) mg/dL Total Bilirubin (0.2-1.3) mg/dL AST (14-36) U/L ALT (4-34) U/L Alkaline Phosphatase (38-126) U/L Total Protein (6.3-8.2) g/dL Albumin (3.5-5.0) g/dL Amylase (30-110) U/L Lipase (23-300) U/L Urine Color Light Yellow Urine Appearance Cloudy H (Clear) Urine pH 6.5 (5.0-8.0) Ur Specific [place] 1.031 (1.001-1.035) Urine Protein Negative (Negative) Urine Glucose (UA) 4+ H (Negative) Urine Ketones Negative (Negative) Urine Blood Negative (Negative) Urine Nitrite Negative (Negative) Urine Bilirubin Negative (Negative) Urine Urobilinogen <2.0 (<2.0) mg/dL Ur Leukocyte Esterase Small H (Negative) Urine RBC 5 (0-5) /hpf Urine WBC 3 (0-5) /hpf Ur Squamous Epith Cells 3 (0-4) /hpf Urine Bacteria Rare H (None) /hpf Urine Mucus Rare H (None) /hpf Urine HCG, Qual Not Detected (Not Detectd) 09/15/21 Range/Units 15:54 WBC (3.8-10.6) k/uL RBC (3.80-5.40) m/uL Hgb (11.4-16.0) gm/dL Hct (34.0-46.0) % MCV (80.0-100.0) fL MCH (25.0-35.0) pg MCHC (31.0-37.0) g/dL RDW (11.5-15.5) % Plt Count (150-450) k/uL MPV Neutrophils % % Lymphocytes % % Monocytes % % Eosinophils % % Basophils % % Neutrophils # (1.3-7.7) k/uL Lymphocytes # (1.0-4.8) k/uL Monocytes # (0-1.0) k/uL Eosinophils # (0-0.7) k/uL Basophils # (0-0.2) k/uL Sodium 135 L (137-145) mmol/L Potassium 4.1 (3.5-5.1) mmol/L Chloride 102 (98-107) mmol/L Carbon Dioxide 23 (22-30) mmol/L Anion Gap 10 mmol/L BUN 9 (7-17) mg/dL Creatinine 0.66 (0.52-1.04) mg/dL Est GFR (CKD-EPI)AfAm >90 (>60 ml/min/1.73 sqM) Est GFR (CKD-EPI)NonAf >90 (>60 ml/min/1.73 sqM) Glucose 300 H (74-99) mg/dL Calcium 10.0 (8.4-10.2) mg/dL Total Bilirubin 0.2 (0.2-1.3) mg/dL AST 15 (14-36) U/L ALT 13 (4-34) U/L Alkaline Phosphatase 59 (38-126) U/L Total Protein 7.2 (6.3-8.2) g/dL Albumin 4.1 (3.5-5.0) g/dL Amylase 63 (30-110) U/L Lipase 501 H (23-300) U/L Urine Color Urine Appearance (Clear) Urine pH (5.0-8.0) Ur Specific [place] (1.001-1.035) Urine Protein (Negative) Urine Glucose (UA) (Negative) Urine Ketones (Negative) Urine Blood (Negative) Urine Nitrite (Negative) Urine Bilirubin (Negative) Urine Urobilinogen (<2.0) mg/dL Ur Leukocyte Esterase (Negative) Urine RBC (0-5) /hpf Urine WBC (0-5) /hpf Ur Squamous Epith Cells (0-4) /hpf Urine Bacteria (None) /hpf Urine Mucus (None) /hpf Urine HCG, Qual (Not Detectd) Disposition Clinical Impression: Chronic abdominal pain Disposition: HOME SELF-CARE Condition: Stable Instructions (If sedation given, give patient instructions): Abdominal Pain (ED) Additional Instructions: Follow-up with your regular physician as directed. Return to the ER immediately if any symptoms worsen, new symptoms arise, or any other problems develop. Call tomorrow morning to set up a follow-up appointment with your account management assistant. Clear liquid diet for 24 hours. Is patient prescribed a controlled substance at d/c from ED?: No Referrals: Isi Carolina MD [Primary Care Provider] - 1-2 days Katarzyna Bocanegra MD [STAFF PHYSICIAN] - 1-2 days Time of Disposition: 19:07
[2021-09-15 16:33] LABS: Basophils % (A) 0 %; Eosinophils # (A) 0.1 k/uL (0-0.7); Eosinophils % (A) 1 %; HCT 37.3 % (34.0-46.0); HGB 12.1 gm/dL (11.4-16.0); Lymphocytes # (A) 1.5 k/uL (1.0-4.8); Lymphocytes % (A) 20 %; MCH 31.3 pg (25.0-35.0); MCHC 32.3 g/dL (31.0-37.0); MCV 96.7 fL (80.0-100.0); Monocytes # (A) 0.3 k/uL (0-1.0); Monocytes % (A) 4 %; Neutrophils # (A) 5.6 k/uL (1.3-7.7); Neutrophils % (A) 74 %; Platelet Count 326 k/uL (150-450); RBC 3.86 m/uL (3.80-5.40); RDW 12.3 % (11.5-15.5); WBC 7.5 k/uL (3.8-10.6)
[2021-09-15 16:43] LABS: ALT 13 U/L (4-34); AST 15 U/L (14-36); African American GFR (CKD) >90 (>60 ml/min/1.73 sqM); Albumin 4.1 g/dL (3.5-5.0); Alkaline Phosphatase 59 U/L (38-126); Amylase 63 U/L (30-110); Anion Gap 10 mmol/L; Blood Urea Nitrogen 9 mg/dL (7-17); Carbon Dioxide 23 mmol/L (22-30); Chloride 102 mmol/L (98-107); Glucose 300 mg/dL (74-99); Lipase 501 U/L (23-300); Non-African American GFR(CKD) >90 (>60 ml/min/1.73 sqM); Potassium 4.1 mmol/L (3.5-5.1); Sodium 135 mmol/L (137-145); Total Bilirubin 0.2 mg/dL (0.2-1.3); Total Protein 7.2 g/dL (6.3-8.2)
[2021-09-15 17:00] LABS: Appearance,Urine Cloudy (Clear); Bacteria,Urine Rare /hpf; Bilirubin,Urine Negative (Negative); Blood,Urine Negative (Negative); Color,Urine Light Yellow; Glucose,Urine (UA) 4+ (Negative); Ketones,Urine Negative (Negative); Leukocyte Esterase,Urine Small (Negative); Mucus,Urine Rare /hpf; Nitrite,Urine Negative (Negative); PH, Urine 6.5 (5.0-8.0); Protein,Urine Negative (Negative); RBC,Urine 5 /hpf (0-5); Specific Gravity,Urine 1.031 (1.001-1.035); Squamous Epithelial Cell,Urine 3 /hpf (0-4); Urobilinogen,Urine <2.0 mg/dL (<2.0); WBC,Urine 3 /hpf (0-5)
[2021-09-15] MEDS ORDERED: KETOROLAC 15 MG/ML 1 ML VIAL IVP STA (17:51)
[2021-09-15 19:02] VITALS: BP 102/58; PULSE 108; RESP 18
--- NOTE | 2021-09-15 19:04 | XR ---
EXAMINATION TYPE: XR abdomen acute w cxr DATE OF EXAM: 09/15/2021 COMPARISON: 08/23/2021 HISTORY: Abdominal pain TECHNIQUE: 4 views FINDINGS: Heart and mediastinum are normal. Lungs are clear. Diaphragm is normal. Bowel gas pattern is normal. No sign of intestinal obstruction or pneumoperitoneum. Fecal pattern is normal. There are clips from cholecystectomy. No calcifications seen over the kidneys. IMPRESSION: Normal chest. Nonacute abdomen. No adverse change.
[2021-09-16 09:31] LABS: Urine Alcohol Negative (Negative); Urine Barbiturate Negative (Negative); Urine Cocaine Negative (Negative); Urine Methadone Negative (Negative); Urine Opiates Negative (Negative); Urine Phencyclidine Negative (Negative)
== END 2021-09-15 19:14 | disposition home or self-care (01) ==
LOC: EC 12:51
DX: G89.29 Other chronic pain (principal); R10.9 Unspecified abdominal pain; J45.909 Unspecified asthma, uncomplicated; E11.9 Type 2 diabetes mellitus without complications; K21.9 Gastro-esophageal reflux disease without esophagitis; Z88.0 Allergy status to penicillin; Z91.030 Bee allergy status; Z88.8 Allergy status to other drugs, medicaments and biological substances; Z88.6 Allergy status to analgesic agent; Z91.038 Other insect allergy status; Z91.018 Allergy to other foods; Z88.5 Allergy status to narcotic agent; Z88.2 Allergy status to sulfonamides; Z91.040 Latex allergy status; Z79.899 Other long term (current) drug therapy; Z79.84 Long term (current) use of oral hypoglycemic drugs
CPT/HCPCS: 36415; 80053; 82150; 83690; 85025; 81001; 81025; 80306; 74022; 99284; 96374; 96375; 96361; J1200; J2765; J1885

== ENCOUNTER 2021-09-18 09:03 | Emergency (ER) | payer OTHER ==
[2021-09-18 09:11] VITALS: RESP 18; TEMP 98
[2021-09-18] MEDS ORDERED: diphenhydrAMINE 50 MG/ML 1 ML VIAL IVP STA (10:13)
[2021-09-18] MEDS ORDERED: PROCHLORPERAZINE INJ 10 MG/2 ML VIAL IVP STA (10:14)
[2021-09-18] MEDS ORDERED: SODIUM CHLORIDE 0.9% 2,000 ML IV ONE (10:14)
[2021-09-18] MEDS ORDERED: KETOROLAC 15 MG/ML 1 ML VIAL IVP STA (10:14)
[2021-09-18 10:22] LABS: Basophils % (A) 1 %; Eosinophils # (A) 0.1 k/uL (0-0.7); Eosinophils % (A) 2 %; HCT 36.4 % (34.0-46.0); HGB 11.6 gm/dL (11.4-16.0); Lymphocytes # (A) 1.3 k/uL (1.0-4.8); Lymphocytes % (A) 19 %; MCH 30.9 pg (25.0-35.0); MCHC 31.8 g/dL (31.0-37.0); MCV 97.3 fL (80.0-100.0); Mean Platelet Volume 7.8; Monocytes # (A) 0.3 k/uL (0-1.0); Monocytes % (A) 4 %; Neutrophils # (A) 4.8 k/uL (1.3-7.7); Neutrophils % (A) 73 %; Platelet Count 322 k/uL (150-450); RBC 3.74 m/uL (3.80-5.40); RDW 12.2 % (11.5-15.5); WBC 6.6 k/uL (3.8-10.6)
[2021-09-18 10:30] LABS: Amorphous Sediment,Urine Few /hpf; Appearance,Urine Cloudy (Clear); Bacteria,Urine Occasional /hpf; Bilirubin,Urine Negative (Negative); Blood,Urine Negative (Negative); Budding Yeast,Urine Occasional /hpf; Color,Urine Yellow; Glucose,Urine (UA) 4+ (Negative); Ketones,Urine Negative (Negative); Leukocyte Esterase,Urine Large (Negative); Mucus,Urine Few /hpf; Nitrite,Urine Negative (Negative); Protein,Urine Trace (Negative); RBC,Urine 14 /hpf (0-5); Specific Gravity,Urine 1.029 (1.001-1.035); Squamous Epithelial Cell,Urine 20 /hpf (0-4); WBC,Urine 26 /hpf (0-5)
[2021-09-18 10:46] LABS: ALT 13 U/L (4-34); African American GFR (CKD) >90 (>60 ml/min/1.73 sqM); Anion Gap 8 mmol/L; Blood Urea Nitrogen 10 mg/dL (7-17); Calcium 9.9 mg/dL (8.4-10.2); Carbon Dioxide 21 mmol/L (22-30); Chloride 104 mmol/L (98-107); Glucose 265 mg/dL (74-99); Lipase 425 U/L (23-300); Non-African American GFR(CKD) >90 (>60 ml/min/1.73 sqM); Sodium 133 mmol/L (137-145); Total Bilirubin 0.6 mg/dL (0.2-1.3)
[2021-09-18 11:10] LABS: AST 30 U/L (14-36); Potassium 5.4 mmol/L (3.5-5.1); Total Protein 7.3 g/dL (6.3-8.2)
[2021-09-18 11:11] LABS: Alkaline Phosphatase 33 U/L (38-126)
--- NOTE | 2021-09-18 11:28 | ED ---
Abdominal Pain HPI - General Chief Complaint: Abdominal Pain Stated Complaint: migraine & abd pain Time Seen by Provider: 09/18/21 09:22 Source: patient, RN notes reviewed Mode of arrival: ambulatory Limitations: no limitations - History of Present Illness Initial Comments: This a 30-year-old female presents emergency Department chief complaint migraine headache, abdominal pain. Patient is abdominal pain started yesterday started having headache today did admit to nausea vomiting no fevers or chills patient has chronic pain due to his chronic headaches and abdominal pain. Patient has no acute changes patient offers no complaints. - Related Data Home Medications Medication Instructions Recorded Confirmed Fenofibrate [Lofibra] 160 mg PO HS@2100 07/02/21 08/14/21 Midodrine HCl 5 mg PO BID PRN 07/02/21 08/14/21 metFORMIN HCL 500 mg PO BID@0800,1700 07/02/21 08/14/21 ARIPiprazole IM SYRINGE [Abilify 400 mg IM Q30D 07/28/21 08/14/21 Maintena Syringe] Acetaminophen Tab [Tylenol] 1,000 mg PO Q6H PRN 07/28/21 08/14/21 Desvenlafaxine [Desvenlafaxine ER] 50 mg PO DAILY@0800 07/28/21 08/14/21 Dicyclomine [Bentyl] 10 mg PO TID PRN 07/28/21 08/14/21 QUEtiapine [SEROquel] 400 mg PO HS@2100 07/28/21 08/14/21 busPIRone HCL 15 mg PO QID@08,12,16,21 07/28/21 08/14/21 traZODone HCL [Desyrel] 250 mg PO HS@2100 07/28/21 08/14/21 Ibuprofen [Motrin] 600 mg PO TID PRN 08/10/21 08/14/21 Ondansetron [Zofran] 4 mg PO Q8H PRN 08/10/21 08/14/21 Azithromycin [Zithromax] 500 mg PO DAILY 08/14/21 08/14/21 Previous Rx's Medication Instructions Recorded Ondansetron Odt [Zofran Odt] 4 mg PO Q8HR PRN #12 tab 09/01/21 Allergies Allergy/AdvReac Type Severity Reaction Status Date / Time bee pollen Allergy Severe Anaphylaxis Verified 09/18/21 09:09 haloperidol [From Haldol] Allergy Severe QUIT Verified 09/18/21 09:09 BREATHING haloperidol lactate Allergy Severe QUIT Verified 09/18/21 09:09 [From Haldol] BREATHING latex Allergy Severe RASH-THROAT Verified 09/18/21 09:09 CLOSES [place] Allergy Anaphylaxis Verified 09/18/21 09:09 coconut Allergy Anaphylaxis Verified 09/18/21 09:09 morphine Allergy Rash/Hives Verified 09/18/21 09:09 pineapple Allergy Anaphylaxis Verified 09/18/21 09:09 prednisone Allergy THROAT Verified 09/18/21 09:09 SWELLS spider venom Allergy Swelling Verified 09/18/21 09:09 Sulfa (Sulfonamide Allergy THROAT Verified 09/18/21 09:09 Antibiotics) SWELLS venom-wasp Allergy Swelling Verified 09/18/21 09:09 venom-wasp protein Allergy Swelling Verified 09/18/21 09:09 promethazine HCl AdvReac Severe Nausea & Verified 09/18/21 09:09 [From Phenergan] Vomiting tramadol AdvReac Severe Nausea & Verified 09/18/21 09:09 Vomiting amoxicillin AdvReac Nausea & Verified 09/18/21 09:09 Vomiting ANTS AdvReac Mild Anaphylaxis Uncoded 09/18/21 09:09 Review of Systems ROS Statement: Those systems with pertinent positive or pertinent negative responses have been documented in the HPI. ROS Other: All systems not noted in ROS Statement are negative. Past Medical History Past Medical History: Asthma, Diabetes Mellitus, GERD/Reflux Additional Past Medical History / Comment(s): migraines, degenerative disk disease, endometriosis, lupus, pancreatitis, DM2- diet controlled History of Any Multi-Drug Resistant Organisms: None Reported Past Surgical History: Orthopedic Surgery Additional Past Surgical History / Comment(s): laparoscopc surgery for endometriosis, cyst removed from left foot, EGD, Past Anesthesia/Blood Transfusion Reactions: Previous Problems w/ Anesthesia Additional Past Anesthesia/Blood Transfusion Reaction / Comment(s): hard to wake up for 48-72 hours after laparoscopic surgery-was in hosp. for 3 days Past Psychological History: Anxiety, Depression, PTSD Smoking Status: Never smoker Past Alcohol Use History: None Reported Past Drug Use History: None Reported - Past Family History Mother Family Medical History: No Reported History Additional Family Medical History / Comment(s): hx migraines Father Family Medical History: Coronary Artery Disease (CAD), Hypertension Additional Family Medical History / Comment(s): ddd, alcoholism & drug use General Exam Limitations: no limitations General appearance: alert, in no apparent distress Head exam: Present: atraumatic, normocephalic, normal inspection Eye exam: Present: normal appearance, PERRL, EOMI. Absent: scleral icterus, conjunctival injection, periorbital swelling ENT exam: Present: normal exam, mucous membranes moist Neck exam: Present: normal inspection. Absent: tenderness, meningismus, lymphadenopathy Respiratory exam: Present: normal lung sounds bilaterally. Absent: respiratory distress, wheezes, rales, rhonchi, stridor Cardiovascular Exam: Present: normal rhythm, tachycardia, normal heart sounds. Absent: systolic murmur, diastolic murmur, rubs, gallop, clicks GI/Abdominal exam: Present: soft, tenderness, normal bowel sounds. Absent: distended, guarding, rebound, rigid Course Vital Signs 09/18/21 09/18/21 09:06 11:20 Temperature 98 F Pulse Rate 120 H 111 H Respiratory 18 18 Rate Blood Pressure 106/73 97/70 O2 Sat by Pulse 96 97 Oximetry Medical Decision Making - Medical Decision Making Lipase is minimally elevated, remain lab work essentially unremarkable. Patient was hydrated, given antiemetics will be discharged in stable condition return parameters discussed. - Lab Data Result diagrams: 09/18/21 09:35 09/18/21 09:35 Lab Results 09/18/21 09/18/21 09/18/21 Range/Units 09:35 09:35 09:35 WBC 6.6 (3.8-10.6) k/uL RBC 3.74 L (3.80-5.40) m/uL Hgb 11.6 (11.4-16.0) gm/dL Hct 36.4 (34.0-46.0) % MCV 97.3 (80.0-100.0) fL MCH 30.9 (25.0-35.0) pg MCHC 31.8 (31.0-37.0) g/dL RDW 12.2 (11.5-15.5) % Plt Count 322 (150-450) k/uL MPV 7.8 Neutrophils % 73 % Lymphocytes % 19 % Monocytes % 4 % Eosinophils % 2 % Basophils % 1 % Neutrophils # 4.8 (1.3-7.7) k/uL Lymphocytes # 1.3 (1.0-4.8) k/uL Monocytes # 0.3 (0-1.0) k/uL Eosinophils # 0.1 (0-0.7) k/uL Basophils # 0.0 (0-0.2) k/uL Sodium (137-145) mmol/L Potassium (3.5-5.1) mmol/L Chloride (98-107) mmol/L Carbon Dioxide (22-30) mmol/L Anion Gap mmol/L BUN (7-17) mg/dL Creatinine (0.52-1.04) mg/dL Est GFR (CKD-EPI)AfAm (>60 ml/min/1.73 sqM) Est GFR (CKD-EPI)NonAf (>60 ml/min/1.73 sqM) Glucose (74-99) mg/dL Calcium (8.4-10.2) mg/dL Total Bilirubin (0.2-1.3) mg/dL AST (14-36) U/L ALT (4-34) U/L Alkaline Phosphatase (38-126) U/L Total Protein (6.3-8.2) g/dL Albumin (3.5-5.0) g/dL Lipase (23-300) U/L Urine Color Yellow Urine Appearance Cloudy H (Clear) Urine pH 6.0 (5.0-8.0) Ur Specific Qulin 1.029 (1.001-1.035) Urine Protein Trace H (Negative) Urine Glucose (UA) 4+ H (Negative) Urine Ketones Negative (Negative) Urine Blood Negative (Negative) Urine Nitrite Negative (Negative) Urine Bilirubin Negative (Negative) Urine Urobilinogen 2.0 (<2.0) mg/dL Ur Leukocyte Esterase Large H (Negative) Urine RBC 14 H (0-5) /hpf Urine WBC 26 H (0-5) /hpf Ur Squamous Epith Cells 20 H (0-4) /hpf Amorphous Sediment Few H (None) /hpf Urine Bacteria Occasional H (None) /hpf Urine Mucus Few H (None) /hpf Urine Yeast (Budding) Occasional H (None) /hpf Urine HCG, Qual Not Detected (Not Detectd) 09/18/21 Range/Units 09:35 WBC (3.8-10.6) k/uL RBC (3.80-5.40) m/uL Hgb (11.4-16.0) gm/dL Hct (34.0-46.0) % MCV (80.0-100.0) fL MCH (25.0-35.0) pg MCHC (31.0-37.0) g/dL RDW (11.5-15.5) % Plt Count (150-450) k/uL MPV Neutrophils % % Lymphocytes % % Monocytes % % Eosinophils % % Basophils % % Neutrophils # (1.3-7.7) k/uL Lymphocytes # (1.0-4.8) k/uL Monocytes # (0-1.0) k/uL Eosinophils # (0-0.7) k/uL Basophils # (0-0.2) k/uL Sodium 133 L (137-145) mmol/L Potassium 5.4 H (3.5-5.1) mmol/L Chloride 104 (98-107) mmol/L Carbon Dioxide 21 L (22-30) mmol/L Anion Gap 8 mmol/L BUN 10 (7-17) mg/dL Creatinine 0.71 (0.52-1.04) mg/dL Est GFR (CKD-EPI)AfAm >90 (>60 ml/min/1.73 sqM) Est GFR (CKD-EPI)NonAf >90 (>60 ml/min/1.73 sqM) Glucose 265 H (74-99) mg/dL Calcium 9.9 (8.4-10.2) mg/dL Total Bilirubin 0.6 (0.2-1.3) mg/dL AST 30 (14-36) U/L ALT 13 (4-34) U/L Alkaline Phosphatase 33 L (38-126) U/L Total Protein 7.3 (6.3-8.2) g/dL Albumin 4.0 (3.5-5.0) g/dL Lipase 425 H (23-300) U/L Urine Color Urine Appearance (Clear) Urine pH (5.0-8.0) Ur Specific Qulin (1.001-1.035) Urine Protein (Negative) Urine Glucose (UA) (Negative) Urine Ketones (Negative) Urine Blood (Negative) Urine Nitrite (Negative) Urine Bilirubin (Negative) Urine Urobilinogen (<2.0) mg/dL Ur Leukocyte Esterase (Negative) Urine RBC (0-5) /hpf Urine WBC (0-5) /hpf Ur Squamous Epith Cells (0-4) /hpf Amorphous Sediment (None) /hpf Urine Bacteria (None) /hpf Urine Mucus (None) /hpf Urine Yeast (Budding) (None) /hpf Urine HCG, Qual (Not Detectd) Disposition Clinical Impression: Chronic pancreatitis, Migraine headache Disposition: HOME SELF-CARE Condition: Stable Instructions (If sedation given, give patient instructions): Pancreatitis (ED) Additional Instructions: Please return to the Emergency Department if symptoms worsen or any other concerns. Is patient prescribed a controlled substance at d/c from ED?: No Referrals: sIi Carolina MD [Primary Care Provider] - 1-2 days Time of Disposition: 11:28
[2021-09-18 11:48] VITALS: BP 132/78; PULSE 100
== END 2021-09-18 11:47 | disposition home or self-care (01) ==
LOC: EC 09:03
DX: K86.1 Other chronic pancreatitis (principal); G43.909 Migraine, unspecified, not intractable, without status migrainosus; E11.9 Type 2 diabetes mellitus without complications; K21.9 Gastro-esophageal reflux disease without esophagitis; J45.909 Unspecified asthma, uncomplicated; F32.A Depression, unspecified; F41.9 Anxiety disorder, unspecified; Z79.84 Long term (current) use of oral hypoglycemic drugs; Z79.899 Other long term (current) drug therapy; Z88.0 Allergy status to penicillin; Z88.2 Allergy status to sulfonamides; Z88.5 Allergy status to narcotic agent
CPT/HCPCS: 36415; 80053; 83690; 85025; 81001; 81025; 87086; 99284; 96374; 96375 ×2; 96361 ×2; J1200; J0780; J1885

== ENCOUNTER 2021-09-19 11:49 | Emergency (ER) | payer OTHER ==
[2021-09-19 12:13] VITALS: TEMP 98.5
--- NOTE | 2021-09-19 13:05 | ED ---
General Adult HPI - General Chief complaint: Chest Pain Stated complaint: Chest Pain,Abd.Pain Time Seen by Provider: 09/19/21 12:48 Source: patient Mode of arrival: wheelchair Limitations: no limitations - History of Present Illness Initial comments: Dictation was produced using [employer] dictation software. please excuse any grammatical, word or spelling errors. Chief Complaint: 30-year-old female well-known to our emergency department for multiple visitations for a myriad of complaints. History of Present Illness: Is a 30-year-old female she has past medical history asthma diabetes and reflux disease. Patient is well-known to emergency department for multiple visitations for a myriad of complaints. This is patient's 16th visit in the last 8 weeks. Patient states over the last 24-hour she's developed chest and abdominal pain. She states the pain is towards her left anterior chest states that it feels like pressure. Patient denies any history of coronary artery disease. She has no history of heart attacks. She also complains of mild epigastric abdominal pain. Patient claims of nausea. No diarrhea. No vomiting. His symptoms are not associated with diaphoresis. Pain is nonradiating. The ROS documented in this emergency department record has been reviewed and confirmed by me. Those systems with pertinent positive or negative responses have been documented in the HPI. All other systems are other negative and/or noncontributory. PHYSICAL EXAM: General Impression: Alert and oriented x3, not in acute distress HEENT: Normocephalic atraumatic, extra-ocular movements intact, pupils equal and reactive to light bilaterally, mucous membranes moist. Cardiovascular: Heart regular rate and rhythm Chest: Able to complete full sentences, no retractions, no tachypnea Abdomen: abdomen soft, non-tender, non-distended, no organomegaly Musculoskeletal: Pulses present and equal in all extremities, no peripheral edema Motor: no focal deficits noted Neurological: CN II-XII grossly intact, no focal motor or sensory deficits noted Skin: Intact with no visualized rashes Psych: Normal affect and mood ED course: 30-year-old female well-known to emergency department for myriad complaints. She presents to the emergency department for one day of chest and abdominal pain. Patient is well-appearing at the bedside. EKG shows no signs of ischemia or infarction. Blood pressure is 88/71, heart rate 118, rest of vital signs within acceptable limits. EKG interpretation: Ventricular rate 136, sinus tachycardia,. 133, Q 73, QTC 378. No [place] prolongation, no QTC prolongation, no ST or T-wave changes noted. Laboratory evaluation obtained. Metabolic panel is unremarkable. Abdominal x- ray suggests ileus, enteritis or partial bowel obstruction. Given that patient reports that her symptoms have been worsening and this is her 61 of visit the last 10 days. Patient will benefit from admission with consultation to general surgery. - Related Data Home Medications Medication Instructions Recorded Confirmed Fenofibrate [Lofibra] 160 mg PO HS@2100 07/02/21 08/14/21 Midodrine HCl 5 mg PO BID PRN 07/02/21 08/14/21 metFORMIN HCL 500 mg PO BID@0800,1700 07/02/21 08/14/21 ARIPiprazole IM SYRINGE [Abilify 400 mg IM Q30D 07/28/21 08/14/21 Maintena Syringe] Acetaminophen Tab [Tylenol] 1,000 mg PO Q6H PRN 07/28/21 08/14/21 Desvenlafaxine [Desvenlafaxine ER] 50 mg PO DAILY@0800 07/28/21 08/14/21 Dicyclomine [Bentyl] 10 mg PO TID PRN 07/28/21 08/14/21 QUEtiapine [SEROquel] 400 mg PO HS@2100 07/28/21 08/14/21 busPIRone HCL 15 mg PO QID@08,12,16,21 07/28/21 08/14/21 traZODone HCL [Desyrel] 250 mg PO HS@2100 07/28/21 08/14/21 Ibuprofen [Motrin] 600 mg PO TID PRN 08/10/21 08/14/21 Ondansetron [Zofran] 4 mg PO Q8H PRN 08/10/21 08/14/21 Azithromycin [Zithromax] 500 mg PO DAILY 08/14/21 08/14/21 Previous Rx's Medication Instructions Recorded Ondansetron Odt [Zofran Odt] 4 mg PO Q8HR PRN #12 tab 09/01/21 Allergies Allergy/AdvReac Type Severity Reaction Status Date / Time bee pollen Allergy Severe Anaphylaxis Verified 09/19/21 12:03 haloperidol [From Haldol] Allergy Severe QUIT Verified 09/19/21 12:03 BREATHING haloperidol lactate Allergy Severe QUIT Verified 09/19/21 12:03 [From Haldol] BREATHING latex Allergy Severe RASH-THROAT Verified 09/19/21 12:03 CLOSES [place] Allergy Anaphylaxis Verified 09/19/21 12:03 coconut Allergy Anaphylaxis Verified 09/19/21 12:03 morphine Allergy Rash/Hives Verified 09/19/21 12:03 pineapple Allergy Anaphylaxis Verified 09/19/21 12:03 prednisone Allergy THROAT Verified 09/19/21 12:03 SWELLS spider venom Allergy Swelling Verified 09/19/21 12:03 Sulfa (Sulfonamide Allergy THROAT Verified 09/19/21 12:03 Antibiotics) SWELLS venom-wasp Allergy Swelling Verified 09/19/21 12:03 venom-wasp protein Allergy Swelling Verified 09/19/21 12:03 promethazine HCl AdvReac Severe Nausea & Verified 09/19/21 12:03 [From Phenergan] Vomiting tramadol AdvReac Severe Nausea & Verified 09/19/21 12:03 Vomiting amoxicillin AdvReac Nausea & Verified 09/19/21 12:03 Vomiting ANTS AdvReac Mild Anaphylaxis Uncoded 09/19/21 12:03 Review of Systems ROS Statement: Those systems with pertinent positive or pertinent negative responses have been documented in the HPI. ROS Other: All systems not noted in ROS Statement are negative. Past Medical History Past Medical History: Asthma, Diabetes Mellitus, GERD/Reflux Additional Past Medical History / Comment(s): migraines, degenerative disk disease, endometriosis, lupus, pancreatitis, DM2- diet controlled History of Any Multi-Drug Resistant Organisms: None Reported Past Surgical History: Orthopedic Surgery Additional Past Surgical History / Comment(s): laparoscopc surgery for endometriosis, cyst removed from left foot, EGD, Past Anesthesia/Blood Transfusion Reactions: Previous Problems w/ Anesthesia Additional Past Anesthesia/Blood Transfusion Reaction / Comment(s): hard to wake up for 48-72 hours after laparoscopic surgery-was in hosp. for 3 days Past Psychological History: Anxiety, Depression, PTSD Smoking Status: Never smoker Past Alcohol Use History: None Reported Past Drug Use History: None Reported - Past Family History Mother Family Medical History: No Reported History Additional Family Medical History / Comment(s): hx migraines Father Family Medical History: Coronary Artery Disease (CAD), Hypertension Additional Family Medical History / Comment(s): ddd, alcoholism & drug use General Exam Limitations: no limitations Course Vital Signs 09/19/21 12:04 Temperature 98.5 F Pulse Rate 118 H Respiratory 16 Rate Blood Pressure 88/71 O2 Sat by Pulse 100 Oximetry Medical Decision Making - Lab Data Result diagrams: 09/19/21 13:20 Lab Results 09/19/21 09/19/21 Range/Units 13:20 13:20 Sodium 134 L (137-145) mmol/L Potassium 5.1 (3.5-5.1) mmol/L Chloride 103 (98-107) mmol/L Carbon Dioxide 20 L (22-30) mmol/L Anion Gap 11 mmol/L BUN 12 (7-17) mg/dL Creatinine 0.70 (0.52-1.04) mg/dL Est GFR (CKD-EPI)AfAm >90 (>60 ml/min/1.73 sqM) Est GFR (CKD-EPI)NonAf >90 (>60 ml/min/1.73 sqM) Glucose 237 H (74-99) mg/dL Calcium 10.5 H (8.4-10.2) mg/dL Total Bilirubin 0.7 (0.2-1.3) mg/dL AST 30 (14-36) U/L ALT 14 (4-34) U/L Alkaline Phosphatase 34 L (38-126) U/L Troponin I <0.012 (0.000-0.034) ng/mL Total Protein 7.7 (6.3-8.2) g/dL Albumin 4.3 (3.5-5.0) g/dL Lipase 282 (23-300) U/L Disposition Clinical Impression: Ileus Disposition: ADMITTED IP TO THIS [facility] Condition: Fair Referrals: Isi Carolina MD [Primary Care Provider] - 1-2 days Decision Time: 15:04
[2021-09-19 13:42] LABS: ALT 14 U/L (4-34); African American GFR (CKD) >90 (>60 ml/min/1.73 sqM); Anion Gap 11 mmol/L; Blood Urea Nitrogen 12 mg/dL (7-17); Calcium 10.5 mg/dL (8.4-10.2); Carbon Dioxide 20 mmol/L (22-30); Chloride 103 mmol/L (98-107); Glucose 237 mg/dL (74-99); Lipase 282 U/L (23-300); Non-African American GFR(CKD) >90 (>60 ml/min/1.73 sqM); Sodium 134 mmol/L (137-145)
[2021-09-19 13:46] LABS: AST 30 U/L (14-36); Albumin 4.3 g/dL (3.5-5.0); Alkaline Phosphatase 34 U/L (38-126); Potassium 5.1 mmol/L (3.5-5.1); Total Bilirubin 0.7 mg/dL (0.2-1.3); Total Protein 7.7 g/dL (6.3-8.2)
--- NOTE | 2021-09-19 14:35 | XR ---
EXAMINATION TYPE: XR abdomen acute w cxr DATE OF EXAM: 09/19/2021 COMPARISON: 09/15/2021 HISTORY: Epigastric pain TECHNIQUE: Supine, upright, and left side down lateral decubitus views of the abdomen are obtained. FINDINGS: Lungs are clear. Heart size normal. No pleural effusion or pneumothorax. Postsurgical changes right upper quadrant. Bowel gas pattern nonspecific. There are a few dilated sma ll bowel loops with air fluid level in the mid abdomen. No suspicious calcifications. IMPRESSION: Nonspecific abdomen correlate for ileus or enteritis. Partial obstruction not excluded.
[2021-09-19] MEDS ORDERED: NALOXONE 0.4 MG/ML 1 ML VIAL IV PRN (15:01)
[2021-09-19] MEDS ORDERED: SODIUM CHLORIDE 0.9% 1,000 ML IV SCH (15:15)
[2021-09-19] MEDS ORDERED: KETOROLAC 15 MG/ML 1 ML VIAL IVP PRN (17:35)
[2021-09-19] MEDS ORDERED: HYOSCYAMINE SULFATE 0.125 MG TAB SL PRN (17:36)
[2021-09-19] MEDS ORDERED: ONDANSETRON ODT 4 MG TAB PO PRN (17:36)
--- NOTE | 2021-09-19 17:56 | P.HPIM ---
History of Present Illness H&P Date: 09/19/21 Chief Complaint: Abdominal pain/chest pain 30-year-old female she has past medical history asthma diabetes and reflux disease. Patient is well-known to emergency department for multiple visitations for a myriad of complaints. This is patient's 16th visit in the last 8 weeks. Patient states over the last 24-hour she's developed chest and abdominal pain. She states the pain is towards her left anterior chest states that it feels like pressure. Patient denies any history of coronary artery disease. She has no history of heart attacks. She also complains of mild epigastric abdominal pain. Patient claims of nausea. No diarrhea. No vomiting. His symptoms are not associated with diaphoresis. Pain is nonradiating. Patient is well-known to our emergency department for multiple visitations for a myriad of complaints. resents to the emergency department for one day of chest and abdominal pain. Patient is well-appearing at the bedside. EKG shows no signs of ischemia or infarction. Blood pressure is 88/71, heart rate 118, rest of vital signs within acceptable limits. EKG interpretation: Ventricular rate 136, sinus tachycardia,. 133, Q 73, QTC 3 78. No [place] prolongation, no QTC prolongation, no ST or T-wave changes noted. Laboratory evaluation obtained. Metabolic panel is unremarkable. Abdominal x- ray suggests ileus, enteritis or partial bowel obstruction. Given that patient reports that her symptoms have been worsening and this is her 61 of visit the last 10 days. Patient will benefit from admission with consultation to general surgery. Past Medical History Past Medical History: Asthma, Diabetes Mellitus, GERD/Reflux Additional Past Medical History / Comment(s): migraines, degenerative disk disease, endometriosis, lupus, pancreatitis, DM2- diet controlled History of Any Multi-Drug Resistant Organisms: None Reported Past Surgical History: Orthopedic Surgery Additional Past Surgical History / Comment(s): laparoscopc surgery for endometriosis, cyst removed from left foot, EGD, Past Anesthesia/Blood Transfusion Reactions: Previous Problems w/ Anesthesia Additional Past Anesthesia/Blood Transfusion Reaction / Comment(s): hard to wake up for 48-72 hours after laparoscopic surgery-was in hosp. for 3 days Past Psychological History: Anxiety, Depression, PTSD Smoking Status: Never smoker Past Alcohol Use History: None Reported Past Drug Use History: None Reported - Past Family History Mother Family Medical History: No Reported History Additional Family Medical History / Comment(s): hx migraines Father Family Medical History: Coronary Artery Disease (CAD), Hypertension Additional Family Medical History / Comment(s): ddd, alcoholism & drug use Medications and Allergies Home Medications Medication Instructions Recorded Confirmed Type Fenofibrate [Lofibra] 160 mg PO HS 07/02/21 09/19/21 History metFORMIN HCL 500 mg PO BID-W/MEALS 07/02/21 09/19/21 History ARIPiprazole IM SYRINGE [Abilify 400 mg IM Q30D 07/28/21 09/19/21 History Maintena Syringe] Acetaminophen Tab [Tylenol] 1,000 mg PO Q6H PRN 07/28/21 09/19/21 History Desvenlafaxine [Desvenlafaxine ER] 50 mg PO DAILY 07/28/21 09/19/21 History QUEtiapine [SEROquel] 400 mg PO HS 07/28/21 09/19/21 History busPIRone HCL 15 mg PO QID 07/28/21 09/19/21 History traZODone HCL [Desyrel] 300 mg PO HS 07/28/21 09/19/21 History Ondansetron Odt [Zofran Odt] 4 mg PO Q8HR PRN #12 tab 09/01/21 09/19/21 Rx Hyoscyamine Sulfate [Hyoscyamine 0.125 mg SL QID PRN 09/19/21 09/19/21 History Sulfate SL] Allergies Allergy/AdvReac Type Severity Reaction Status Date / Time bee pollen Allergy Severe Anaphylaxis Verified 09/19/21 12:03 haloperidol [From Haldol] Allergy Severe QUIT Verified 09/19/21 12:03 BREATHING haloperidol lactate Allergy Severe QUIT Verified 09/19/21 12:03 [From Haldol] BREATHING latex Allergy Severe RASH-THROAT Verified 09/19/21 12:03 CLOSES [place] Allergy Anaphylaxis Verified 09/19/21 12:03 coconut Allergy Anaphylaxis Verified 09/19/21 12:03 morphine Allergy Rash/Hives Verified 09/19/21 12:03 pineapple Allergy Anaphylaxis Verified 09/19/21 12:03 prednisone Allergy THROAT Verified 09/19/21 12:03 SWELLS spider venom Allergy Swelling Verified 09/19/21 12:03 Sulfa (Sulfonamide Allergy THROAT Verified 09/19/21 12:03 Antibiotics) SWELLS venom-wasp Allergy Swelling Verified 09/19/21 12:03 venom-wasp protein Allergy Swelling Verified 09/19/21 12:03 promethazine HCl AdvReac Severe Nausea & Verified 09/19/21 12:03 [From Phenergan] Vomiting tramadol AdvReac Severe Nausea & Verified 09/19/21 12:03 Vomiting amoxicillin AdvReac Nausea & Verified 09/19/21 12:03 Vomiting ANTS AdvReac Mild Anaphylaxis Uncoded 09/19/21 12:03 Physical Exam Vitals: Vital Signs Temp Pulse Resp BP Pulse Ox 09/19/21 12:04 98.5 F 118 H 16 88/71 100 Intake and Output 09/19/21 09/19/21 09/19/21 06:59 14:59 22:59 Other: Weight 84.368 kg General Impression: Alert and oriented x3, not in acute distress HEENT: Normocephalic atraumatic, extra-ocular movements intact, pupils equal and reactive to light bilaterally, mucous membranes moist. Cardiovascular: Heart regular rate and rhythm Chest: Able to complete full sentences, no retractions, no tachypnea Abdomen: abdomen soft, non-tender, non-distended, no organomegaly Musculoskeletal: Pulses present and equal in all extremities, no peripheral edema Motor: no focal deficits noted Neurological: CN II-XII grossly intact, no focal motor or sensory deficits noted Skin: Intact with no visualized rashes Psych: Normal affect and mood Results CBC & Chem 7: 09/19/21 13:20 Labs: Abnormal Lab Results - Last 24 Hours (Table) 09/19/21 Range/Units 13:20 Sodium 134 L (137-145) mmol/L Carbon Dioxide 20 L (22-30) mmol/L Glucose 237 H (74-99) mg/dL Calcium 10.5 H (8.4-10.2) mg/dL Alkaline Phosphatase 34 L (38-126) U/L Assessment and Plan Assessment: 1. Abdominal pain; ileus versus early small bowel obstruction; patient will be kept nothing by mouth and will be placed on IV fluid hydration; we will monitor strict KIMBERLY's; consult surgery for further evaluation 2. Hyperglycemia/diabetes mellitus type 2; patient takes metformin 500 mg; we w ill hold off on metformin and start patient on Accu-Cheks every 6 hours as with insulin sliding scale 3. Hypotension; blood pressure continues remained soft; patient uses Midrin 5 mg by mouth twice a day when necessary 4. Chest pain; EKG is unremarkable; cardiac enzymes are within; we will heidi nue to monitor 5. Hyperlipidemia; fenofibrate 160 mg daily at bedtime; we will hold oral intake is improved 6. Anxiety/depression/PTSD; patient will continue with home dose of trazodone, Abilify and Seroquel CODE STATUS; full code
[2021-09-19] MEDS ORDERED: busPIRone HCl 5 MG TAB PO SCH ×2 (18:00→21:30)
[2021-09-19 19:01] VITALS: BP 142/78; PULSE 78; RESP 20
[2021-09-19] MEDS ORDERED: QUEtiapine 400 MG TAB PO SCH (21:00)
[2021-09-19] MEDS ORDERED: traZODone HCL 100 MG TAB PO SCH (21:00)
[2021-09-20] MEDS ORDERED: DESVENLAFAXINE SUCCINATE 50 MG TAB.ER.24H PO SCH (09:00)
== END 2021-09-19 18:59 | disposition other institution (70) ==
LOC: EC 11:49 → 5NMEDONC 15:42 → UNDOADMIN 15:42 → EC 18:59
DX: K56.7 Ileus, unspecified (principal); E11.9 Type 2 diabetes mellitus without complications; J45.909 Unspecified asthma, uncomplicated; G43.909 Migraine, unspecified, not intractable, without status migrainosus; Z79.84 Long term (current) use of oral hypoglycemic drugs; F41.9 Anxiety disorder, unspecified; F32.A Depression, unspecified; F43.10 Post-traumatic stress disorder, unspecified; Z79.899 Other long term (current) drug therapy; Z88.8 Allergy status to other drugs, medicaments and biological substances; Z91.040 Latex allergy status; Z91.018 Allergy to other foods; Z91.038 Other insect allergy status; Z88.2 Allergy status to sulfonamides; Z88.5 Allergy status to narcotic agent; Z88.1 Allergy status to other antibiotic agents
CPT/HCPCS: 36415; 93005; 80053; 83690; 84484; 74022; 99285; 96374; 96361 ×2; J1885

== ENCOUNTER 2021-09-23 22:18 | Emergency (ER) | payer OTHER ==
[2021-09-23 22:21] VITALS: TEMP 98.4
[2021-09-24] MEDS ORDERED: ONDANSETRON 4 MG TAB PO STA (03:33)
[2021-09-24] MEDS ORDERED: LORazepam 1 MG TAB PO STA (03:33)
[2021-09-24] MEDS ORDERED: HYDROmorphone 1 MG/ML 1 ML SYRINGE IM STA (03:33)
--- NOTE | 2021-09-24 03:40 | ED ---
Abdominal Pain HPI - General Chief Complaint: Abdominal Pain Stated Complaint: Abdominal Pain Time Seen by Provider: 09/24/21 03:29 Source: patient, RN notes reviewed, old records reviewed Mode of arrival: ambulatory Limitations: no limitations - History of Present Illness Initial Comments: This is a 30-year-old female well-known emergency room. Patient Dese for evaluation regards to severe abdominal pain abdominal pain nausea vomiting. No recent travel history or sick contacts. No fevers. No other significant complaints. Patient was recently admitted to the hospital and signed out AGAINST MEDICAL ADVICE she is concerned that she will still have possible small bowel obstruction and she had MD Complaint: abdominal pain, flank pain -: year(s) Location: diffuse, periumbilical, suprapubic, L flank, R flank Radiation: epigastric, suprapubic Migration to: epigastric, suprapubic Severity: severe Severity scale (1-10): 8 Quality: stabbing, aching Consistency: constant Improves With: nothing Worsens With: nothing Context: sick contacts Associated Symptoms: nausea, vomiting, diarrhea Treatments Prior to Arrival: other (0) - Related Data Home Medications Medication Instructions Recorded Confirmed Fenofibrate [Lofibra] 160 mg PO HS 07/02/21 09/19/21 metFORMIN HCL 500 mg PO BID-W/MEALS 07/02/21 09/19/21 ARIPiprazole IM SYRINGE [Abilify 400 mg IM Q30D 07/28/21 09/19/21 Maintena Syringe] Acetaminophen Tab [Tylenol] 1,000 mg PO Q6H PRN 07/28/21 09/19/21 Desvenlafaxine [Desvenlafaxine ER] 50 mg PO DAILY 07/28/21 09/19/21 QUEtiapine [SEROquel] 400 mg PO HS 07/28/21 09/19/21 busPIRone HCL 15 mg PO QID 07/28/21 09/19/21 traZODone HCL [Desyrel] 300 mg PO HS 07/28/21 09/19/21 Hyoscyamine Sulfate [Hyoscyamine 0.125 mg SL QID PRN 09/19/21 09/19/21 Sulfate SL] Previous Rx's Medication Instructions Recorded Ondansetron Odt [Zofran Odt] 4 mg PO Q8HR PRN #12 tab 09/01/21 Allergies Allergy/AdvReac Type Severity Reaction Status Date / Time bee pollen Allergy Severe Anaphylaxis Verified 10/05/21 18:46 haloperidol [From Haldol] Allergy Severe QUIT Verified 10/05/21 18:46 BREATHING haloperidol lactate Allergy Severe QUIT Verified 10/05/21 18:46 [From Haldol] BREATHING latex Allergy Severe RASH-THROAT Verified 10/05/21 18:46 CLOSES [place] Allergy Anaphylaxis Verified 10/05/21 18:46 coconut Allergy Anaphylaxis Verified 10/05/21 18:46 morphine Allergy Rash/Hives Verified 10/05/21 18:46 pineapple Allergy Anaphylaxis Verified 10/05/21 18:46 prednisone Allergy THROAT Verified 10/05/21 18:46 SWELLS spider venom Allergy Swelling Verified 10/05/21 18:46 Sulfa (Sulfonamide Allergy THROAT Verified 10/05/21 18:46 Antibiotics) SWELLS venom-wasp Allergy Swelling Verified 10/05/21 18:46 venom-wasp protein Allergy Swelling Verified 10/05/21 18:46 promethazine HCl AdvReac Severe Nausea & Verified 10/05/21 18:46 [From Phenergan] Vomiting tramadol AdvReac Severe Nausea & Verified 10/05/21 18:46 Vomiting amoxicillin AdvReac Nausea & Verified 10/05/21 18:46 Vomiting ANTS AdvReac Mild Anaphylaxis Uncoded 10/05/21 18:46 Review of Systems ROS Statement: Those systems with pertinent positive or pertinent negative responses have been documented in the HPI. ROS Other: All systems not noted in ROS Statement are negative. Past Medical History Past Medical History: Asthma, Diabetes Mellitus, GERD/Reflux Additional Past Medical History / Comment(s): migraines, degenerative disk disease, endometriosis, lupus, pancreatitis, DM2- diet controlled History of Any Multi-Drug Resistant Organisms: None Reported Past Surgical History: Orthopedic Surgery Additional Past Surgical History / Comment(s): laparoscopc surgery for endometriosis, cyst removed from left foot, EGD, Past Anesthesia/Blood Transfusion Reactions: Previous Problems w/ Anesthesia Additional Past Anesthesia/Blood Transfusion Reaction / Comment(s): hard to wake up for 48-72 hours after laparoscopic surgery-was in hosp. for 3 days Past Psychological History: Anxiety, Depression, PTSD Smoking Status: Never smoker Past Alcohol Use History: None Reported Past Drug Use History: None Reported - Past Family History Mother Family Medical History: No Reported History Additional Family Medical History / Comment(s): hx migraines Father Family Medical History: Coronary Artery Disease (CAD), Hypertension Additional Family Medical History / Comment(s): ddd, alcoholism & drug use General Exam Limitations: no limitations General appearance: alert, in no apparent distress, anxious Head exam: Present: atraumatic, normocephalic, normal inspection Eye exam: Present: normal appearance, PERRL, EOMI. Absent: scleral icterus, conjunctival injection, periorbital swelling ENT exam: Present: normal exam, mucous membranes moist Neck exam: Present: normal inspection. Absent: tenderness, meningismus, lymphadenopathy Respiratory exam: Present: normal lung sounds bilaterally. Absent: respiratory distress, wheezes, rales, rhonchi, stridor Cardiovascular Exam: Present: normal rhythm, tachycardia, normal heart sounds. Absent: systolic murmur, diastolic murmur, rubs, gallop, clicks GI/Abdominal exam: Present: soft, normal bowel sounds. Absent: distended, tenderness, guarding, rebound, rigid Extremities exam: Present: normal inspection, full ROM, normal capillary refill. Absent: tenderness, pedal edema, joint swelling, calf tenderness Back exam: Present: normal inspection Neurological exam: Present: alert, oriented X3, CN II-XII intact Psychiatric exam: Present: normal affect, normal mood Skin exam: Present: warm, dry, intact, normal color. Absent: rash Course Vital Signs 09/23/21 09/24/21 09/24/21 22:20 05:59 10:51 Temperature 98.4 F Pulse Rate 120 H 106 H 78 Respiratory 18 12 18 Rate Blood Pressure 117/73 105/85 110/62 O2 Sat by Pulse 96 98 Oximetry - Reevaluation(s) Reevaluation #1: 09/24/21 Medical record is reviewed Reevaluation #2: 09/24/21 Patient symptoms are improved here in the ER feeling well Reevaluation #3: 09/24/21 Patient informed results and questions answered Medical Decision Making - Medical Decision Making 30 female to the emergency department for evaluation regards to abdominal pain. Concern for pancreatitis versus small bowel obstruction, neither found to be occurring. Patient is awake alert and can be discharged home - Lab Data Result diagrams: 09/24/21 05:14 09/24/21 05:14 Lab Results 09/24/21 09/24/21 Range/Units 05:14 05:14 WBC 5.8 (3.8-10.6) k/uL RBC 3.42 L (3.80-5.40) m/uL Hgb 11.0 L (11.4-16.0) gm/dL Hct 32.4 L (34.0-46.0) % MCV 94.9 (80.0-100.0) fL MCH 32.0 (25.0-35.0) pg MCHC 33.8 (31.0-37.0) g/dL RDW 12.7 (11.5-15.5) % Plt Count 417 (150-450) k/uL MPV 7.5 Neutrophils % 54 % Lymphocytes % 37 % Monocytes % 4 % Eosinophils % 2 % Basophils % 1 % Neutrophils # 3.1 (1.3-7.7) k/uL Lymphocytes # 2.2 (1.0-4.8) k/uL Monocytes # 0.2 (0-1.0) k/uL Eosinophils # 0.1 (0-0.7) k/uL Basophils # 0.0 (0-0.2) k/uL Sodium 134 L (137-145) mmol/L Potassium 4.7 (3.5-5.1) mmol/L Chloride 103 (98-107) mmol/L Carbon Dioxide 20 L (22-30) mmol/L Anion Gap 11 mmol/L BUN 11 (7-17) mg/dL Creatinine 0.69 (0.52-1.04) mg/dL Est GFR (CKD-EPI)AfAm >90 (>60 ml/min/1.73 sqM) Est GFR (CKD-EPI)NonAf >90 (>60 ml/min/1.73 sqM) Glucose 218 H (74-99) mg/dL Calcium 10.3 H (8.4-10.2) mg/dL Total Bilirubin 0.3 (0.2-1.3) mg/dL AST 19 (14-36) U/L ALT 14 (4-34) U/L Alkaline Phosphatase 55 (38-126) U/L Total Protein 7.6 (6.3-8.2) g/dL Albumin 4.3 (3.5-5.0) g/dL Amylase 53 (30-110) U/L Lipase 298 (23-300) U/L - Radiology Data Radiology results: report reviewed (CT of the abdomen and pelvis negative for acute disease), image reviewed Disposition Clinical Impression: Abdominal pain Disposition: HOME SELF-CARE Condition: Good Instructions (If sedation given, give patient instructions): Abdominal Pain (ED) Is patient prescribed a controlled substance at d/c from ED?: No Referrals: Isi Carolina MD [Primary Care Provider] - 1-2 days
--- NOTE | 2021-09-24 04:17 | CT ---
EXAMINATION TYPE: CT abdomen pelvis wo con DATE OF EXAM: 09/24/2021 COMPARISON: 07/10/2021 HISTORY: Abdominal pain CT DLP: 702.4 mGycm Automated exposure control for dose reduction was used. Images obtained from the diaphragm to the floor the pelvis with no contrast. Lung bases are clear of consolidation. There is mild atelectasis right posterior lung base. Heart siz e is normal. No pericardial effusion. Stomach is intact. There is irregular hypercellular area of hyp odensity in the superior right lobe of the liver. The spleen is intact. There are clips from cholecys tectomy. There is some mild fat stranding around the pancreas. There is poorly marginated 3 x 2 cm ar ea of hypodensity in the body of the pancreas. There is no adrenal mass. Kidneys have normal size. No hydronephrosis. There is 5 mm calculus upper p ole right kidney. No retroperitoneal adenopathy. Appendix appears normal. Ureters are not dilated. Th e bladder distends smoothly. No inguinal hernia. No free fluid in the pelvis. Uterus is anteverted. N o pelvic mass. There is no ascites or free air. No sign of a bowel obstruction. The lumbar spine is intact. No compr ession fracture. The bony pelvis is intact. The hip joints are intact. IMPRESSION: Fat stranding around the pancreas and hypodensity in the body of the pancreas that could relate to ac gabby pancreatitis and edema. This is a change compared to the old exam. Hypodensity in the superior liver appears new compared to old exam. Significance is not clear. This c ould be a hemangioma. Normal appendix. There is some scarring and atelectasis right posterior lung base without change.
[2021-09-24] MEDS ORDERED: SODIUM CHLORIDE 0.9% 1,000 ML IV STA (04:20)
[2021-09-24] MEDS ORDERED: PROCHLORPERAZINE INJ 10 MG/2 ML VIAL IVP STA (05:39)
[2021-09-24] MEDS ORDERED: HYDROmorphone 1 MG/ML 1 ML SYRINGE IVP STA (05:39)
[2021-09-24] MEDS ORDERED: diphenhydrAMINE 50 MG/ML 1 ML VIAL IVP STA (06:55)
[2021-09-24 06:57] LABS: Basophils % (A) 1 %; Eosinophils # (A) 0.1 k/uL (0-0.7); Eosinophils % (A) 2 %; HCT 32.4 % (34.0-46.0); Lymphocytes # (A) 2.2 k/uL (1.0-4.8); Lymphocytes % (A) 37 %; MCHC 33.8 g/dL (31.0-37.0); MCV 94.9 fL (80.0-100.0); Mean Platelet Volume 7.5; Monocytes # (A) 0.2 k/uL (0-1.0); Monocytes % (A) 4 %; Neutrophils # (A) 3.1 k/uL (1.3-7.7); Neutrophils % (A) 54 %; Platelet Count 417 k/uL (150-450); RBC 3.42 m/uL (3.80-5.40); RDW 12.7 % (11.5-15.5); WBC 5.8 k/uL (3.8-10.6)
[2021-09-24 07:01] LABS: ALT 14 U/L (4-34); AST 19 U/L (14-36); African American GFR (CKD) >90 (>60 ml/min/1.73 sqM); Albumin 4.3 g/dL (3.5-5.0); Alkaline Phosphatase 55 U/L (38-126); Amylase 53 U/L (30-110); Anion Gap 11 mmol/L; Blood Urea Nitrogen 11 mg/dL (7-17); Calcium 10.3 mg/dL (8.4-10.2); Carbon Dioxide 20 mmol/L (22-30); Chloride 103 mmol/L (98-107); Glucose 218 mg/dL (74-99); Lipase 298 U/L (23-300); Non-African American GFR(CKD) >90 (>60 ml/min/1.73 sqM); Potassium 4.7 mmol/L (3.5-5.1); Sodium 134 mmol/L (137-145); Total Bilirubin 0.3 mg/dL (0.2-1.3); Total Protein 7.6 g/dL (6.3-8.2)
[2021-09-24 10:52] VITALS: BP 110/62; PULSE 78; RESP 18
== END 2021-09-24 10:51 | disposition home or self-care (01) ==
LOC: EC 22:18
DX: R10.9 Unspecified abdominal pain (principal); J45.909 Unspecified asthma, uncomplicated; Z79.83 Long term (current) use of bisphosphonates; E11.9 Type 2 diabetes mellitus without complications; K21.9 Gastro-esophageal reflux disease without esophagitis; I10 Essential (primary) hypertension; Z91.030 Bee allergy status; Z91.040 Latex allergy status; Z88.5 Allergy status to narcotic agent; Z88.8 Allergy status to other drugs, medicaments and biological substances; Z88.2 Allergy status to sulfonamides; Z88.0 Allergy status to penicillin; Z88.1 Allergy status to other antibiotic agents; Z91.018 Allergy to other foods; Z91.048 Other nonmedicinal substance allergy status
CPT/HCPCS: 36415; 80053; 82150; 83690; 85025; 74176; 99284; 96374; 96375; 96372; 96361; J1200; J0780; J1170

== ENCOUNTER 2021-09-29 14:23 | Emergency (ER) | payer OTHER ==
[2021-09-29 14:40] VITALS: TEMP 98.2
--- NOTE | 2021-09-29 18:54 | ED ---
General Adult HPI - General Source: patient, EMS, RN notes reviewed, old records reviewed Mode of arrival: ambulatory Limitations: no limitations <Paul Ray - Last Filed: 09/29/21 20:36> <Paul Turner - Last Filed: 09/30/21 22:34> - General Chief complaint: Psychiatric Symptoms Stated complaint: LE Petition Time Seen by Provider: 09/29/21 18:25 - History of Present Illness Initial comments: This is a 30-year-old female who presents to the emergency department stating that she wants to jump in front of the vehicle until her self. Patient states she did not attempt because of her children. Patient denies any drug use or alcohol use today. Patient denies any physical complaints today. Patient does have a loss any history of abdominal pain but she's not complaining of any abdominal pain today. Patient denies any vomiting or diarrhea. Patient denies any fever chills or cough (Paul Ray) - Related Data Home Medications Medication Instructions Recorded Confirmed Fenofibrate [Lofibra] 160 mg PO HS 07/02/21 09/19/21 metFORMIN HCL 500 mg PO BID-W/MEALS 07/02/21 09/19/21 ARIPiprazole IM SYRINGE [Abilify 400 mg IM Q30D 07/28/21 09/19/21 Maintena Syringe] Acetaminophen Tab [Tylenol] 1,000 mg PO Q6H PRN 07/28/21 09/19/21 Desvenlafaxine [Desvenlafaxine ER] 50 mg PO DAILY 07/28/21 09/19/21 QUEtiapine [SEROquel] 400 mg PO HS 07/28/21 09/19/21 busPIRone HCL 15 mg PO QID 07/28/21 09/19/21 traZODone HCL [Desyrel] 300 mg PO HS 07/28/21 09/19/21 Hyoscyamine Sulfate [Hyoscyamine 0.125 mg SL QID PRN 09/19/21 09/19/21 Sulfate SL] Previous Rx's Medication Instructions Recorded Ondansetron Odt [Zofran Odt] 4 mg PO Q8HR PRN #12 tab 09/01/21 Allergies Allergy/AdvReac Type Severity Reaction Status Date / Time bee pollen Allergy Severe Anaphylaxis Verified 09/23/21 22:21 haloperidol [From Haldol] Allergy Severe QUIT Verified 09/23/21 22:21 BREATHING haloperidol lactate Allergy Severe QUIT Verified 09/23/21 22:21 [From Haldol] BREATHING latex Allergy Severe RASH-THROAT Verified 09/23/21 22:21 CLOSES [place] Allergy Anaphylaxis Verified 09/23/21 22:21 coconut Allergy Anaphylaxis Verified 09/23/21 22:21 morphine Allergy Rash/Hives Verified 09/23/21 22:21 pineapple Allergy Anaphylaxis Verified 09/23/21 22:21 prednisone Allergy THROAT Verified 09/23/21 22:21 SWELLS spider venom Allergy Swelling Verified 09/23/21 22:21 Sulfa (Sulfonamide Allergy THROAT Verified 09/23/21 22:21 Antibiotics) SWELLS venom-wasp Allergy Swelling Verified 09/23/21 22:21 venom-wasp protein Allergy Swelling Verified 09/23/21 22:21 promethazine HCl AdvReac Severe Nausea & Verified 09/23/21 22:21 [From Phenergan] Vomiting tramadol AdvReac Severe Nausea & Verified 09/23/21 22:21 Vomiting amoxicillin AdvReac Nausea & Verified 09/23/21 22:21 Vomiting ANTS AdvReac Mild Anaphylaxis Uncoded 09/23/21 22:21 Review of Systems ROS Other: All systems not noted in ROS Statement are negative. <Paul Ray - Last Filed: 09/29/21 20:36> ROS Other: All systems not noted in ROS Statement are negative. <Paul Turner - Last Filed: 09/30/21 22:34> ROS Statement: Those systems with pertinent positive or pertinent negative responses have been documented in the HPI. Past Medical History Past Medical History: Asthma, Diabetes Mellitus, GERD/Reflux Additional Past Medical History / Comment(s): migraines, degenerative disk disease, endometriosis, lupus, pancreatitis, DM2- diet controlled History of Any Multi-Drug Resistant Organisms: None Reported Past Surgical History: Orthopedic Surgery Additional Past Surgical History / Comment(s): laparoscopc surgery for endometriosis, cyst removed from left foot, EGD, Past Anesthesia/Blood Transfusion Reactions: Previous Problems w/ Anesthesia Additional Past Anesthesia/Blood Transfusion Reaction / Comment(s): hard to wake up for 48-72 hours after laparoscopic surgery-was in hosp. for 3 days Past Psychological History: Anxiety, Depression, PTSD Smoking Status: Never smoker Past Alcohol Use History: None Reported Past Drug Use History: None Reported - Past Family History Mother Family Medical History: No Reported History Additional Family Medical History / Comment(s): hx migraines Father Family Medical History: Coronary Artery Disease (CAD), Hypertension Additional Family Medical History / Comment(s): ddd, alcoholism & drug use <Paul Ray - Last Filed: 09/29/21 20:36> General Exam Limitations: no limitations <Paul Ray - Last Filed: 09/29/21 20:36> - General Exam Comments Initial Comments: GENERAL: Patient is well-developed and well-nourished. Patient is nontoxic and well- hydrated and is in no acute distress. ENT: Neck is soft and supple. No significant lymphadenopathy is noted. Oropharynx is clear. Moist mucous membranes. Neck has full range of motion without eliciting any pain. EYES: The sclera were anicteric and conjunctiva were pink and moist. Extraocular movements were intact and pupils were equal round and reactive to light. Eyelids were unremarkable. PULMONARY: Unlabored respirations. Good breath sounds bilaterally. No audible rales rhonchi or wheezing was noted. CARDIOVASCULAR: There is a regular rate and rhythm without any murmurs gallops or rubs. ABDOMEN: Soft and nontender with normal bowel sounds. SKIN: Skin is clear with no lesions or rashes and otherwise unremarkable. NEUROLOGIC: Patient is alert and oriented x3. Cranial nerves II through XII are grossly intact. Motor and sensory are also intact. Normal speech, volume and content. Symmetrical smile. MUSCULOSKELETAL: Normal extremities with adequate strength and full range of motion. No lower extremity swelling or edema. No calf tenderness. PSYCHIATRIC: Patient states she wants to kill himself but she doesn't want to because of her children. (Paul Ray) Course <Paul Turner B - Last Filed: 09/30/21 22:34> Vital Signs 09/29/21 09/29/21 14:37 23:23 Temperature 98.2 F Pulse Rate 118 H 76 Respiratory 18 16 Rate Blood Pressure 137/93 113/76 O2 Sat by Pulse 98 100 Oximetry - Reevaluation(s) Reevaluation #1: 09/30/21 Medical record is reviewed Medically clear for psychiatric evaluation (Paul Turner) Medical Decision Making <Paul Ray - Last Filed: 09/29/21 20:36> <Paul Turner - Last Filed: 09/30/21 22:34> - Medical Decision Making Dr. Turner will be taking over the care of this patient at 9 PM (Paul Montgomery) 30 female seen and evaluated by psychiatry here in the ER, patient is deemed stable for discharge home (Paul Turner) - Lab Data Lab Results 09/29/21 09/29/21 Range/Units 20:21 20:21 Urine HCG, Qual Not Detected (Not Detectd) Urine Opiates Screen Not Detected (NotDetected) Ur Oxycodone Screen Not Detected (NotDetected) Urine Methadone Screen Not Detected (NotDetected) Ur Propoxyphene Screen Not Detected (NotDetected) Ur Barbiturates Screen Not Detected (NotDetected) U Tricyclic Antidepress Detected H (NotDetected) Ur Phencyclidine Scrn Not Detected (NotDetected) Ur Amphetamines Screen Not Detected (NotDetected) U Methamphetamines Scrn Not Detected (NotDetected) U Benzodiazepines Scrn Not Detected (NotDetected) Urine Cocaine Screen Not Detected (NotDetected) U Marijuana (THC) Screen Not Detected (NotDetected) Disposition <Paul Ray - Last Filed: 09/29/21 20:36> Is patient prescribed a controlled substance at d/c from ED?: No <Paul Turner - Last Filed: 09/30/21 22:34> Clinical Impression: Depression, PTSD (post-traumatic stress disorder) Disposition: HOME SELF-CARE Condition: Fair Instructions (If sedation given, give patient instructions): Depression (ED) Referrals: Isi Carolina MD [Primary Care Provider] - 1-2 days
[2021-09-29] MEDS ORDERED: ASPIRIN-ACET-CAFF 250-250-65MG 1 EACH TAB PO STA (21:17)
[2021-09-29 21:35] LABS: Amphetamine Screen,Urine Not Detected (NotDetected); Barbiturate Screen,Urine Not Detected (NotDetected); Benzodiazepines Screen,Urine Not Detected (NotDetected); Cocaine Screen,Urine Not Detected (NotDetected); Methadone Screen, Urine Not Detected (NotDetected); Opiate Screen,Urine Not Detected (NotDetected); Oxycodone Screen, Urine Not Detected (NotDetected); Phencyclidine Screen,Urine Not Detected (NotDetected); Tricyclic Antidepressant,Urine Detected (NotDetected); Urn Cannabinoid Scrn Not Detected (NotDetected)
[2021-09-29] MEDS ORDERED: HYDROcodone/APAP 5-325MG 1 EACH TAB PO STA (23:01)
[2021-09-29] MEDS ORDERED: IBUPROFEN 600 MG TAB PO STA (23:01)
[2021-09-29] MEDS ORDERED: diphenhydrAMINE 50 MG CAP PO STA (23:01)
[2021-09-29] MEDS ORDERED: PROCHLORPERAZINE 10 MG TAB PO ONE (23:15)
[2021-09-29 23:24] VITALS: BP 113/76; PULSE 76; RESP 16
== END 2021-09-29 23:37 | disposition home or self-care (01) ==
LOC: EC 14:23
DX: F32.A Depression, unspecified (principal); F43.10 Post-traumatic stress disorder, unspecified; E11.9 Type 2 diabetes mellitus without complications; J45.909 Unspecified asthma, uncomplicated; K21.9 Gastro-esophageal reflux disease without esophagitis; F41.9 Anxiety disorder, unspecified; Z79.84 Long term (current) use of oral hypoglycemic drugs; Z79.899 Other long term (current) drug therapy
CPT/HCPCS: 82075; 81025; 80306; 99285; S0183

== ENCOUNTER 2021-10-03 10:44 | Emergency (ER) | payer OTHER ==
[2021-10-03] MEDS ORDERED: SODIUM CHLORIDE 0.9% 1,000 ML IV STA (11:17)
[2021-10-03] MEDS ORDERED: ONDANSETRON 4 MG/2 ML VIAL IVP STA (11:17)
[2021-10-03] MEDS ORDERED: KETOROLAC 15 MG/ML 1 ML VIAL IVP STA (11:17)
[2021-10-03] MEDS ORDERED: diphenhydrAMINE 50 MG/ML 1 ML VIAL IVP STA (11:17)
--- NOTE | 2021-10-03 11:19 | ED ---
General Adult HPI - General Chief complaint: Headache Stated complaint: headache Time Seen by Provider: 10/03/21 10:58 Source: patient Mode of arrival: ambulatory Limitations: no limitations - History of Present Illness Initial comments: Dictation was produced using [employer]aj[employer] dictation software. please excuse any grammatical, word or spelling errors. Chief Complaint: 30-year-old female presents to the emergency department for headache History of Present Illness: A 30-year-old female she is well-known to emergency department. Patient is here today for headache. Patient has a history of migraines. She states that her headache feels like her usual migraines. Skull cranial throbbing in nature. Denies any neurologic deficits. Patient states that she's been trying to set in the emergency room however headache has been lasting for 2-3 days. The ROS documented in this emergency department record has been reviewed and confirmed by me. Those systems with pertinent positive or negative responses have been documented in the HPI. All other systems are other negative and/or noncontributory. PHYSICAL EXAM: General Impression: Alert and oriented x3, not in acute distress HEENT: Normocephalic atraumatic, extra-ocular movements intact, pupils equal and reactive to light bilaterally, mucous membranes moist. Cardiovascular: Heart regular rate and rhythm Chest: Able to complete full sentences, no retractions, no tachypnea Abdomen: abdomen soft, non-tender, non-distended, no organomegaly Musculoskeletal: Pulses present and equal in all extremities, no peripheral edema Motor: no focal deficits noted Neurological: CN II-XII grossly intact, no focal motor or sensory deficits noted Skin: Intact with no visualized rashes Psych: Normal affect and mood ED course: 30 yo well-appearing female well-known to emergency department presents to the ER for headache. Patient has no high-risk features. Physical examination is benign. Patient reportedly states that her headache feels like her usual headaches. Vital signs upon arrival are within acceptable limits. No neurologic deficit. Patient given IM analgesics. Patient observed in emergency department for 2 hours and 30 minutes. Patient discharged. - Related Data Home Medications Medication Instructions Recorded Confirmed Fenofibrate [Lofibra] 160 mg PO HS 07/02/21 09/19/21 metFORMIN HCL 500 mg PO BID-W/MEALS 07/02/21 09/19/21 ARIPiprazole IM SYRINGE [Abilify 400 mg IM Q30D 07/28/21 09/19/21 Maintena Syringe] Acetaminophen Tab [Tylenol] 1,000 mg PO Q6H PRN 07/28/21 09/19/21 Desvenlafaxine [Desvenlafaxine ER] 50 mg PO DAILY 07/28/21 09/19/21 QUEtiapine [SEROquel] 400 mg PO HS 07/28/21 09/19/21 busPIRone HCL 15 mg PO QID 07/28/21 09/19/21 traZODone HCL [Desyrel] 300 mg PO HS 07/28/21 09/19/21 Hyoscyamine Sulfate [Hyoscyamine 0.125 mg SL QID PRN 09/19/21 09/19/21 Sulfate SL] Previous Rx's Medication Instructions Recorded Ondansetron Odt [Zofran Odt] 4 mg PO Q8HR PRN #12 tab 09/01/21 Allergies Allergy/AdvReac Type Severity Reaction Status Date / Time bee pollen Allergy Severe Anaphylaxis Verified 09/23/21 22:21 haloperidol [From Haldol] Allergy Severe QUIT Verified 09/23/21 22:21 BREATHING haloperidol lactate Allergy Severe QUIT Verified 09/23/21 22:21 [From Haldol] BREATHING latex Allergy Severe RASH-THROAT Verified 09/23/21 22:21 CLOSES [place] Allergy Anaphylaxis Verified 09/23/21 22:21 coconut Allergy Anaphylaxis Verified 09/23/21 22:21 morphine Allergy Rash/Hives Verified 09/23/21 22:21 pineapple Allergy Anaphylaxis Verified 09/23/21 22:21 prednisone Allergy THROAT Verified 09/23/21 22:21 SWELLS spider venom Allergy Swelling Verified 09/23/21 22:21 Sulfa (Sulfonamide Allergy THROAT Verified 09/23/21 22:21 Antibiotics) SWELLS venom-wasp Allergy Swelling Verified 09/23/21 22:21 venom-wasp protein Allergy Swelling Verified 09/23/21 22:21 promethazine HCl AdvReac Severe Nausea & Verified 09/23/21 22:21 [From Phenergan] Vomiting tramadol AdvReac Severe Nausea & Verified 09/23/21 22:21 Vomiting amoxicillin AdvReac Nausea & Verified 09/23/21 22:21 Vomiting ANTS AdvReac Mild Anaphylaxis Uncoded 06/14/22 22:21 Review of Systems ROS Statement: Those systems with pertinent positive or pertinent negative responses have been documented in the HPI. ROS Other: All systems not noted in ROS Statement are negative. Past Medical History Past Medical History: Asthma, Diabetes Mellitus, GERD/Reflux Additional Past Medical History / Comment(s): migraines, degenerative disk disease, endometriosis, lupus, pancreatitis, DM2- diet controlled History of Any Multi-Drug Resistant Organisms: None Reported Past Surgical History: Orthopedic Surgery Additional Past Surgical History / Comment(s): laparoscopc surgery for endometriosis, cyst removed from left foot, EGD, Past Anesthesia/Blood Transfusion Reactions: Previous Problems w/ Anesthesia Additional Past Anesthesia/Blood Transfusion Reaction / Comment(s): hard to wake up for 48-72 hours after laparoscopic surgery-was in hosp. for 3 days Past Psychological History: Anxiety, Depression, PTSD Smoking Status: Never smoker Past Alcohol Use History: None Reported Past Drug Use History: None Reported - Past Family History Mother Family Medical History: No Reported History Additional Family Medical History / Comment(s): hx migraines Father Family Medical History: Coronary Artery Disease (CAD), Hypertension Additional Family Medical History / Comment(s): ddd, alcoholism & drug use General Exam Limitations: no limitations Course Vital Signs 10/03/21 10:55 Temperature 97.4 F L Pulse Rate 138 H Respiratory 20 Rate Blood Pressure 113/77 O2 Sat by Pulse 98 Oximetry Disposition Clinical Impression: Headache Disposition: HOME SELF-CARE Condition: Good Instructions (If sedation given, give patient instructions): Acute Headache (ED) Is patient prescribed a controlled substance at d/c from ED?: No Referrals: Isi Carolina MD [Primary Care Provider] - 1-2 days Time of Disposition: 13:18
[2021-10-03] MEDS ORDERED: KETOROLAC 15 MG/ML 1 ML VIAL IM STA (13:04)
[2021-10-03 13:38] VITALS: BP 106/72; PULSE 108; RESP 16; TEMP 97.8
== END 2021-10-03 13:45 | disposition home or self-care (01) ==
LOC: EC 10:44
DX: R51.9 Headache, unspecified (principal); J45.909 Unspecified asthma, uncomplicated; E11.9 Type 2 diabetes mellitus without complications; K21.9 Gastro-esophageal reflux disease without esophagitis; Z79.83 Long term (current) use of bisphosphonates; Z88.2 Allergy status to sulfonamides; Z88.0 Allergy status to penicillin; Z91.030 Bee allergy status; Z91.048 Other nonmedicinal substance allergy status; Z88.5 Allergy status to narcotic agent; Z88.8 Allergy status to other drugs, medicaments and biological substances; Z88.1 Allergy status to other antibiotic agents
CPT/HCPCS: 99284; 96372; J1885

== ENCOUNTER 2021-10-04 03:07 | Emergency (ER) | payer OTHER ==
[2021-10-04 03:12] VITALS: BP 113/80; PULSE 64; RESP 20; TEMP 97.5
[2021-10-04] MEDS ORDERED: ONDANSETRON 4 MG/2 ML VIAL IVP STA (05:05)
[2021-10-04] MEDS ORDERED: KETOROLAC 15 MG/ML 1 ML VIAL IVP STA (05:06)
[2021-10-04 05:57] LABS: Appearance,Urine Cloudy (Clear); Bacteria,Urine Occasional /hpf; Bilirubin,Urine Negative (Negative); Blood,Urine Negative (Negative); Budding Yeast,Urine Occasional /hpf; Calcium Oxalate Crystals,Urine Few /hpf; Color,Urine Yellow; Glucose,Urine (UA) 4+ (Negative); Ketones,Urine Trace (Negative); Leukocyte Esterase,Urine Small (Negative); Mucus,Urine Few /hpf; Nitrite,Urine Negative (Negative); Protein,Urine 1+ (Negative); RBC,Urine 11 /hpf (0-5); Specific Gravity,Urine 1.045 (1.001-1.035); Squamous Epithelial Cell,Urine 4 /hpf (0-4); Urobilinogen,Urine <2.0 mg/dL (<2.0); WBC,Urine 13 /hpf (0-5)
[2021-10-04 06:25] LABS: Basophils % (A) 0 %; Eosinophils # (A) 0.1 k/uL (0-0.7); Eosinophils % (A) 1 %; HCT 41.1 % (34.0-46.0); Lymphocytes # (A) 1.3 k/uL (1.0-4.8); Lymphocytes % (A) 18 %; MCH 32.3 pg (25.0-35.0); MCHC 34.4 g/dL (31.0-37.0); MCV 93.8 fL (80.0-100.0); Mean Platelet Volume 7.6; Monocytes # (A) 0.2 k/uL (0-1.0); Monocytes % (A) 3 %; Neutrophils # (A) 5.6 k/uL (1.3-7.7); Neutrophils % (A) 76 %; Platelet Count 316 k/uL (150-450); RBC 4.38 m/uL (3.80-5.40); RDW 12.6 % (11.5-15.5); WBC 7.3 k/uL (3.8-10.6)
[2021-10-04 06:28] LABS: HGB 14.1 gm/dL (11.4-16.0)
[2021-10-04 06:42] LABS: ALT 17 U/L (4-34); AST 21 U/L (14-36); African American GFR (CKD) >90 (>60 ml/min/1.73 sqM); Albumin 4.9 g/dL (3.5-5.0); Alkaline Phosphatase 97 U/L (38-126); Amylase 59 U/L (30-110); Anion Gap 15 mmol/L; Blood Urea Nitrogen 10 mg/dL (7-17); Calcium 10.9 mg/dL (8.4-10.2); Carbon Dioxide 21 mmol/L (22-30); Chloride 103 mmol/L (98-107); Glucose 279 mg/dL (74-99); Lipase 204 U/L (23-300); Non-African American GFR(CKD) >90 (>60 ml/min/1.73 sqM); Potassium 4.3 mmol/L (3.5-5.1); Sodium 139 mmol/L (137-145); Total Bilirubin 0.4 mg/dL (0.2-1.3); Total Protein 8.8 g/dL (6.3-8.2)
[2021-10-04] MEDS ORDERED: DICYCLOMINE 10 MG/ML 2 ML AMP IM STA (07:03)
--- NOTE | 2021-10-04 07:04 | ED ---
Abdominal Pain HPI - General Chief Complaint: Abdominal Pain Stated Complaint: RT flank pain Time Seen by Provider: 10/04/21 04:24 Source: patient Mode of arrival: ambulatory Limitations: no limitations - History of Present Illness MD Complaint: abdominal pain Onset/Timin -: hour(s) Location: RUQ Radiation: none Migration to: no migration Severity: severe Quality: aching Consistency: constant Improves With: nothing Worsens With: nothing Associated Symptoms: nausea - Related Data Home Medications Medication Instructions Recorded Confirmed Fenofibrate [Lofibra] 160 mg PO HS 07/02/21 09/19/21 metFORMIN HCL 500 mg PO BID-W/MEALS 07/02/21 09/19/21 ARIPiprazole IM SYRINGE [Abilify 400 mg IM Q30D 07/28/21 09/19/21 Maintena Syringe] Acetaminophen Tab [Tylenol] 1,000 mg PO Q6H PRN 07/28/21 09/19/21 Desvenlafaxine [Desvenlafaxine ER] 50 mg PO DAILY 07/28/21 09/19/21 QUEtiapine [SEROquel] 400 mg PO HS 07/28/21 09/19/21 busPIRone HCL 15 mg PO QID 07/28/21 09/19/21 traZODone HCL [Desyrel] 300 mg PO HS 07/28/21 09/19/21 Hyoscyamine Sulfate [Hyoscyamine 0.125 mg SL QID PRN 09/19/21 09/19/21 Sulfate SL] Previous Rx's Medication Instructions Recorded Ondansetron Odt [Zofran Odt] 4 mg PO Q8HR PRN #12 tab 09/01/21 Allergies Allergy/AdvReac Type Severity Reaction Status Date / Time bee pollen Allergy Severe Anaphylaxis Verified 10/12/21 19:38 haloperidol [From Haldol] Allergy Severe QUIT Verified 10/12/21 19:38 BREATHING haloperidol lactate Allergy Severe QUIT Verified 10/12/21 19:38 [From Haldol] BREATHING latex Allergy Severe RASH-THROAT Verified 10/12/21 19:38 CLOSES murri[place] Allergy Anaphylaxis Verified 10/12/21 19:38 coconut Allergy Anaphylaxis Verified 10/12/21 19:38 morphine Allergy Rash/Hives Verified 10/12/21 19:38 pineapple Allergy Anaphylaxis Verified 10/12/21 19:38 prednisone Allergy THROAT Verified 10/12/21 19:38 SWELLS spider venom Allergy Swelling Verified 10/12/21 19:38 Sulfa (Sulfonamide Allergy THROAT Verified 10/12/21 19:38 Antibiotics) SWELLS venom-wasp Allergy Swelling Verified 10/12/21 19:38 venom-wasp protein Allergy Swelling Verified 10/12/21 19:38 promethazine HCl AdvReac Severe Nausea & Verified 10/12/21 19:38 [From Phenergan] Vomiting tramadol AdvReac Severe Nausea & Verified 10/12/21 19:38 Vomiting amoxicillin AdvReac Nausea & Verified 10/12/21 19:38 Vomiting ANTS AdvReac Mild Anaphylaxis Uncoded 10/12/21 19:38 Review of Systems ROS Statement: Those systems with pertinent positive or pertinent negative responses have been documented in the HPI. ROS Other: All systems not noted in ROS Statement are negative. Constitutional: Denies: fever, chills Respiratory: Denies: cough, dyspnea Cardiovascular: Denies: chest pain, palpitations Gastrointestinal: Reports: abdominal pain, nausea. Denies: vomiting, diarrhea Genitourinary: Denies: dysuria, hematuria, abnormal menses Musculoskeletal: Denies: back pain Skin: Denies: rash Neurological: Denies: headache Past Medical History Past Medical History: Asthma, Diabetes Mellitus, GERD/Reflux Additional Past Medical History / Comment(s): migraines, degenerative disk disease, endometriosis, lupus, pancreatitis, DM2- diet controlled History of Any Multi-Drug Resistant Organisms: None Reported Past Surgical History: Orthopedic Surgery Additional Past Surgical History / Comment(s): laparoscopc surgery for endometriosis, cyst removed from left foot, EGD, Past Anesthesia/Blood Transfusion Reactions: Previous Problems w/ Anesthesia Additional Past Anesthesia/Blood Transfusion Reaction / Comment(s): hard to wake up for 48-72 hours after laparoscopic surgery-was in hosp. for 3 days Past Psychological History: Anxiety, Depression, PTSD Smoking Status: Never smoker Past Alcohol Use History: None Reported Past Drug Use History: None Reported - Past Family History Mother Family Medical History: No Reported History Additional Family Medical History / Comment(s): hx migraines Father Family Medical History: Coronary Artery Disease (CAD), Hypertension Additional Family Medical History / Comment(s): ddd, alcoholism & drug use General Exam Limitations: no limitations General appearance: alert, in no apparent distress Head exam: Present: atraumatic, normocephalic Eye exam: Present: normal appearance. Absent: scleral icterus, conjunctival injection Neck exam: Present: normal inspection Respiratory exam: Present: normal lung sounds bilaterally. Absent: respiratory distress, wheezes, rales, rhonchi, stridor Cardiovascular Exam: Present: regular rate, normal rhythm, normal heart sounds. Absent: systolic murmur, diastolic murmur, rubs, gallop GI/Abdominal exam: Present: soft. Absent: distended, tenderness, guarding, rebound, rigid, mass Extremities exam: Present: normal inspection, normal capillary refill. Absent: pedal edema, calf tenderness Back exam: Present: normal inspection. Absent: CVA tenderness (R), CVA tenderness (L) Neurological exam: Present: alert Skin exam: Present: warm, dry, intact, normal color. Absent: rash Course Vital Signs 10/04/21 03:09 Temperature 97.5 F L Pulse Rate 64 Respiratory 20 Rate Blood Pressure 113/80 O2 Sat by Pulse 98 Oximetry Medical Decision Making - Lab Data Result diagrams: 10/04/21 06:15 10/04/21 06:15 Lab Results 10/04/21 10/04/21 10/04/21 Range/Units 05:40 05:40 06:15 WBC 7.3 (3.8-10.6) k/uL RBC 4.38 (3.80-5.40) m/uL Hgb 14.1 D (11.4-16.0) gm/dL Hct 41.1 (34.0-46.0) % MCV 93.8 (80.0-100.0) fL MCH 32.3 (25.0-35.0) pg MCHC 34.4 (31.0-37.0) g/dL RDW 12.6 (11.5-15.5) % Plt Count 316 (150-450) k/uL MPV 7.6 Neutrophils % 76 % Lymphocytes % 18 % Monocytes % 3 % Eosinophils % 1 % Basophils % 0 % Neutrophils # 5.6 (1.3-7.7) k/uL Lymphocytes # 1.3 (1.0-4.8) k/uL Monocytes # 0.2 (0-1.0) k/uL Eosinophils # 0.1 (0-0.7) k/uL Basophils # 0.0 (0-0.2) k/uL Sodium (137-145) mmol/L Potassium (3.5-5.1) mmol/L Chloride (98-107) mmol/L Carbon Dioxide (22-30) mmol/L Anion Gap mmol/L BUN (7-17) mg/dL Creatinine (0.52-1.04) mg/dL Est GFR (CKD-EPI)AfAm (>60 ml/min/1.73 sqM) Est GFR (CKD-EPI)NonAf (>60 ml/min/1.73 sqM) Glucose (74-99) mg/dL Calcium (8.4-10.2) mg/dL Total Bilirubin (0.2-1.3) mg/dL AST (14-36) U/L ALT (4-34) U/L Alkaline Phosphatase (38-126) U/L Total Protein (6.3-8.2) g/dL Albumin (3.5-5.0) g/dL Amylase (30-110) U/L Lipase (23-300) U/L Urine Color Yellow Urine Appearance Cloudy H (Clear) Urine pH 6.0 (5.0-8.0) Ur Specific Walton 1.045 H (1.001-1.035) Urine Protein 1+ H (Negative) Urine Glucose (UA) 4+ H (Negative) Urine Ketones Trace H (Negative) Urine Blood Negative (Negative) Urine Nitrite Negative (Negative) Urine Bilirubin Negative (Negative) Urine Urobilinogen <2.0 (<2.0) mg/dL Ur Leukocyte Esterase Small H (Negative) Urine RBC 11 H (0-5) /hpf Urine WBC 13 H (0-5) /hpf Ur Squamous Epith Cells 4 (0-4) /hpf Calcium Oxalate Crystal Few H (None) /hpf Urine Bacteria Occasional H (None) /hpf Urine Mucus Few H (None) /hpf Urine Yeast (Budding) Occasional H (None) /hpf Urine HCG, Qual Not Detected (Not Detectd) 10/04/21 Range/Units 06:15 WBC (3.8-10.6) k/uL RBC (3.80-5.40) m/uL Hgb (11.4-16.0) gm/dL Hct (34.0-46.0) % MCV (80.0-100.0) fL MCH (25.0-35.0) pg MCHC (31.0-37.0) g/dL RDW (11.5-15.5) % Plt Count (150-450) k/uL MPV Neutrophils % % Lymphocytes % % Monocytes % % Eosinophils % % Basophils % % Neutrophils # (1.3-7.7) k/uL Lymphocytes # (1.0-4.8) k/uL Monocytes # (0-1.0) k/uL Eosinophils # (0-0.7) k/uL Basophils # (0-0.2) k/uL Sodium 139 (137-145) mmol/L Potassium 4.3 (3.5-5.1) mmol/L Chloride 103 (98-107) mmol/L Carbon Dioxide 21 L (22-30) mmol/L Anion Gap 15 mmol/L BUN 10 (7-17) mg/dL Creatinine 0.68 (0.52-1.04) mg/dL Est GFR (CKD-EPI)AfAm >90 (>60 ml/min/1.73 sqM) Est GFR (CKD-EPI)NonAf >90 (>60 ml/min/1.73 sqM) Glucose 279 H (74-99) mg/dL Calcium 10.9 H (8.4-10.2) mg/dL Total Bilirubin 0.4 (0.2-1.3) mg/dL AST 21 (14-36) U/L ALT 17 (4-34) U/L Alkaline Phosphatase 97 (38-126) U/L Total Protein 8.8 H (6.3-8.2) g/dL Albumin 4.9 (3.5-5.0) g/dL Amylase 59 (30-110) U/L Lipase 204 (23-300) U/L Urine Color Urine Appearance (Clear) Urine pH (5.0-8.0) Ur Specific Walton (1.001-1.035) Urine Protein (Negative) Urine Glucose (UA) (Negative) Urine Ketones (Negative) Urine Blood (Negative) Urine Nitrite (Negative) Urine Bilirubin (Negative) Urine Urobilinogen (<2.0) mg/dL Ur Leukocyte Esterase (Negative) Urine RBC (0-5) /hpf Urine WBC (0-5) /hpf Ur Squamous Epith Cells (0-4) /hpf Calcium Oxalate Crystal (None) /hpf Urine Bacteria (None) /hpf Urine Mucus (None) /hpf Urine Yeast (Budding) (None) /hpf Urine HCG, Qual (Not Detectd) Disposition Clinical Impression: Nausea & vomiting Disposition: HOME SELF-CARE Condition: Good Instructions (If sedation given, give patient instructions): Acute Nausea and Vomiting (ED) Is patient prescribed a controlled substance at d/c from ED?: No Referrals: Isi Carolina MD [Primary Care Provider] - 1-2 days
== END 2021-10-04 07:15 | disposition home or self-care (01) ==
LOC: EC 03:07
DX: R11.2 Nausea with vomiting, unspecified (principal); J45.909 Unspecified asthma, uncomplicated; Z91.030 Bee allergy status; Z91.018 Allergy to other foods; Z88.5 Allergy status to narcotic agent; Z88.8 Allergy status to other drugs, medicaments and biological substances; Z88.2 Allergy status to sulfonamides; Z88.0 Allergy status to penicillin; Z88.1 Allergy status to other antibiotic agents
CPT/HCPCS: 36415; 80053; 82150; 83690; 85025; 81001; 81025; 99284; 96374; 96375; 96372; J0500; J2405; J1885

== ENCOUNTER 2021-10-05 18:24 | Emergency (ER) | payer OTHER ==
[2021-10-05 18:45] VITALS: TEMP 98.2
--- NOTE | 2021-10-05 19:18 | XR ---
EXAMINATION TYPE: XR KUB DATE OF EXAM: 10/05/2021 COMPARISON: 09/19/2021 HISTORY: Abdominal pain TECHNIQUE: 2 views upright FINDINGS: There is no sign of intestinal obstruction or pneumoperitoneum. Fecal pattern is normal. No evidence of a mass. No pathologic calcifications seen over the kidneys. There are clips from cholecy stectomy. Lung bases are clear. IMPRESSION: Nonacute abdomen. There is clearing of the mild gas distended small bowel loops compared to old exam. No evidence of constipation.
[2021-10-05] MEDS ORDERED: METOCLOPRAMIDE 5 MG/ML 2 ML VIAL IVP STA (21:29)
[2021-10-05] MEDS ORDERED: diphenhydrAMINE 50 MG/ML 1 ML VIAL IVP STA (21:29)
[2021-10-05] MEDS ORDERED: KETOROLAC 15 MG/ML 1 ML VIAL IVP STA (21:29)
[2021-10-05] MEDS ORDERED: SODIUM CHLORIDE 0.9% 1,000 ML IV STA (21:29)
--- NOTE | 2021-10-05 22:44 | ED ---
General Adult HPI - General Chief complaint: Abdominal Pain Stated complaint: abd pain Time Seen by Provider: 10/05/21 20:34 Source: patient, RN notes reviewed Mode of arrival: ambulatory Limitations: no limitations - History of Present Illness Initial comments: 30-year-old female presents to the emergency Department with complaints of migraine headache, onset this morning. Patient states she is sensitive to light and sound and her headache discomfort is worsened with movement. Patient reports a history of migraine headaches and states this is consistent with previous history. Patient also complains of ongoing constipation. States her last formed bowel movement was 3 weeks ago and has had very small stool output since. Patient states she has taken MiraLAX and 2 bottles of mag citrate with minimal improvement. Patient denies fever, chills, chest pain, difficulty breathing, diarrhea, dysuria, or hematuria. - Related Data Home Medications Medication Instructions Recorded Confirmed Fenofibrate [Lofibra] 160 mg PO HS 07/02/21 09/19/21 metFORMIN HCL 500 mg PO BID-W/MEALS 07/02/21 09/19/21 ARIPiprazole IM SYRINGE [Abilify 400 mg IM Q30D 07/28/21 09/19/21 Maintena Syringe] Acetaminophen Tab [Tylenol] 1,000 mg PO Q6H PRN 07/28/21 09/19/21 Desvenlafaxine [Desvenlafaxine ER] 50 mg PO DAILY 07/28/21 09/19/21 QUEtiapine [SEROquel] 400 mg PO HS 07/28/21 09/19/21 busPIRone HCL 15 mg PO QID 07/28/21 09/19/21 traZODone HCL [Desyrel] 300 mg PO HS 07/28/21 09/19/21 Hyoscyamine Sulfate [Hyoscyamine 0.125 mg SL QID PRN 09/19/21 09/19/21 Sulfate SL] Previous Rx's Medication Instructions Recorded Ondansetron Odt [Zofran Odt] 4 mg PO Q8HR PRN #12 tab 09/01/21 Allergies Allergy/AdvReac Type Severity Reaction Status Date / Time bee pollen Allergy Severe Anaphylaxis Verified 10/05/21 18:46 haloperidol [From Haldol] Allergy Severe QUIT Verified 10/05/21 18:46 BREATHING haloperidol lactate Allergy Severe QUIT Verified 10/05/21 18:46 [From Haldol] BREATHING latex Allergy Severe RASH-THROAT Verified 10/05/21 18:46 CLOSES [place] Allergy Anaphylaxis Verified 10/05/21 18:46 coconut Allergy Anaphylaxis Verified 10/05/21 18:46 morphine Allergy Rash/Hives Verified 10/05/21 18:46 pineapple Allergy Anaphylaxis Verified 10/05/21 18:46 prednisone Allergy THROAT Verified 10/05/21 18:46 SWELLS spider venom Allergy Swelling Verified 10/05/21 18:46 Sulfa (Sulfonamide Allergy THROAT Verified 10/05/21 18:46 Antibiotics) SWELLS venom-wasp Allergy Swelling Verified 10/05/21 18:46 venom-wasp protein Allergy Swelling Verified 10/05/21 18:46 promethazine HCl AdvReac Severe Nausea & Verified 10/05/21 18:46 [From Phenergan] Vomiting tramadol AdvReac Severe Nausea & Verified 10/05/21 18:46 Vomiting amoxicillin AdvReac Nausea & Verified 10/05/21 18:46 Vomiting ANTS AdvReac Mild Anaphylaxis Uncoded 10/05/21 18:46 Review of Systems ROS Statement: Those systems with pertinent positive or pertinent negative responses have been documented in the HPI. ROS Other: All systems not noted in ROS Statement are negative. Past Medical History Past Medical History: Asthma, Diabetes Mellitus, GERD/Reflux Additional Past Medical History / Comment(s): migraines, degenerative disk disease, endometriosis, lupus, pancreatitis, DM2- diet controlled History of Any Multi-Drug Resistant Organisms: None Reported Past Surgical History: Orthopedic Surgery Additional Past Surgical History / Comment(s): laparoscopc surgery for endometriosis, cyst removed from left foot, EGD, Past Anesthesia/Blood Transfusion Reactions: Previous Problems w/ Anesthesia Additional Past Anesthesia/Blood Transfusion Reaction / Comment(s): hard to wake up for 48-72 hours after laparoscopic surgery-was in hosp. for 3 days Past Psychological History: Anxiety, Depression, PTSD Smoking Status: Never smoker Past Alcohol Use History: None Reported Past Drug Use History: None Reported - Past Family History Mother Family Medical History: No Reported History Additional Family Medical History / Comment(s): hx migraines Father Family Medical History: Coronary Artery Disease (CAD), Hypertension Additional Family Medical History / Comment(s): ddd, alcoholism & drug use General Exam Limitations: no limitations (Well-developed, well-nourished female in mild distress related to migraine headache. Initial temperature 98.2, pulse 136, respirations 20, blood pressure 123/85, pulse ox 97% on room air.) General appearance: alert, in distress Head exam: Present: atraumatic, normocephalic, normal inspection Eye exam: Present: normal appearance, other (Endorses photophobia; wearing sunglasses; lights dimmed). Absent: scleral icterus, conjunctival injection, periorbital swelling, periorbital tenderness ENT exam: Present: normal oropharynx, mucous membranes moist Neck exam: Present: normal inspection. Absent: tenderness, lymphadenopathy Respiratory exam: Present: normal lung sounds bilaterally. Absent: respiratory distress, wheezes, rales, rhonchi, stridor, chest wall tenderness Cardiovascular Exam: Present: normal rhythm, tachycardia (Elevated heart rate baseline for patient), normal heart sounds GI/Abdominal exam: Present: soft, tenderness (Generalized tenderness upon palpation), guarding, normal bowel sounds. Absent: distended, rebound, rigid Neurological exam: Present: alert, oriented X3 Psychiatric exam: Present: normal affect, normal mood Skin exam: Present: warm, dry, intact, normal color Course Vital Signs 10/05/21 10/05/21 10/05/21 18:42 18:47 20:36 Temperature 98.2 F Pulse Rate 136 H 118 H 75 Respiratory 20 18 Rate Blood Pressure 123/85 121/77 O2 Sat by Pulse 97 100 Oximetry 10/06/21 10/06/21 00:06 02:23 Temperature Pulse Rate 105 H 106 H Respiratory 16 18 Rate Blood Pressure 124/89 114/78 O2 Sat by Pulse 97 97 Oximetry - Reevaluation(s) Reevaluation #1: 10/05/21 23:32 Due to difficulty obtaining IV access therefore medications will be administered IM. 10/06/21 01:30 Patient reports improvement in headache discomfort radiating at 5 out of 10. She will be given a dose of Dilaudid then discharged home to follow up with her PCP for further evaluation and treatment. Medical Decision Making - Medical Decision Making 30-year-old female with a past medical history of chronic pancreatitis for which her gallbladder was removed 4 months ago presents to the emergency department for treatment of migraine headache and evaluation of constipation. Upon exam, patient is well-appearing and in minimal distress related to her migraine headache. She is wearing sunglasses with lights dimmed for comfort. She is not vomiting at this time. Physical exam findings are unremarkable. Heart rate is elevated which is normal for her. Abdomen is soft with active bowel sounds. X- ray is negative with no evidence of constipation. These findings were discussed with patient at length. Due to difficulty obtaining IV access, patient was given medications IM with improvement in discomfort. She verbalizes readiness for discharge. I did discuss with her dietary changes and fiber supplementation for constipation concerns. She was advised that has been Elizabet with antispasmodic does have the potential to cause constipation. She is encouraged to increase her intake of fluids. Instructed to follow up with her PCP for a recheck this week. Return parameters discussed in detail. Patient verbalizes understanding and agrees with this plan. Attending: Christina. - Radiology Data Radiology results: report reviewed, image reviewed KUB x-ray was obtained. Report was reviewed in its entirety. Impression per Dr. Flood is nonacute abdomen. There is clearing of the mild gas distended small bowel loops compared to old exam. No evidence of constipation. Disposition Clinical Impression: Migraine headache, Abdominal pain Disposition: HOME SELF-CARE Condition: Stable Instructions (If sedation given, give patient instructions): Migraine Headache (ED), Abdominal Pain (ED) Additional Instructions: Continue your home medications as prescribed. Consider adding a fiber supplement daily. Bentyl is known to cause constipation so use sparingly. Follow-up with your PCP for a recheck in 48-72 hours. Return to the emergency department with any new, worsening, or concerning symptoms. Is patient prescribed a controlled substance at d/c from ED?: No Referrals: Isi Carolina MD [Primary Care Provider] - 1-2 days Time of Disposition: 02:01
[2021-10-05] MEDS ORDERED: ONDANSETRON ODT 4 MG TAB PO STA (23:29)
[2021-10-05] MEDS ORDERED: diphenhydrAMINE 50 MG/ML 1 ML VIAL IM STA (23:29)
[2021-10-05] MEDS ORDERED: KETOROLAC 15 MG/ML 1 ML VIAL IM STA (23:29)
[2021-10-06] MEDS ORDERED: HYDROmorphone 1 MG/ML 1 ML SYRINGE IM STA (01:49)
[2021-10-06 02:24] VITALS: BP 114/78; PULSE 106; RESP 18
== END 2021-10-06 02:24 | disposition home or self-care (01) ==
LOC: EC 18:24
DX: G43.909 Migraine, unspecified, not intractable, without status migrainosus (principal); R10.84 Generalized abdominal pain; E11.9 Type 2 diabetes mellitus without complications; K21.9 Gastro-esophageal reflux disease without esophagitis; J45.909 Unspecified asthma, uncomplicated; F32.A Depression, unspecified; F41.9 Anxiety disorder, unspecified; Z79.84 Long term (current) use of oral hypoglycemic drugs; Z79.899 Other long term (current) drug therapy
CPT/HCPCS: 74018; 96372; 99283

== ENCOUNTER 2021-10-09 13:50 | Emergency (ER) | payer OTHER ==
[2021-10-09 14:44] VITALS: BP 110/79; PULSE 125; RESP 18; TEMP 99
[2021-10-09] MEDS ORDERED: HYDROmorphone 1 MG/ML 1 ML SYRINGE IM STA (14:58)
[2021-10-09] MEDS ORDERED: ONDANSETRON 4 MG/2 ML VIAL IM STA (14:58)
--- NOTE | 2021-10-09 15:02 | ED ---
General Adult HPI - General Chief complaint: Headache Stated complaint: Migraine, Abdominal Pain Source: patient Mode of arrival: ambulatory Limitations: no limitations - History of Present Illness Initial comments: Patient is a 30-year-old female presents to the emergency room with complaints of migraine with nausea without vomiting and abdominal pain ongoing throughout the day today. She reports that she has taken her migraine medication at home which include sumatriptan but cannot take any NSAIDs due to upcoming foot surgery. She is also complaining of abdominal pain most significantly to the right lower quadrant. She was recently here in the emergency room and had a workup that included a KUB which was negative for acute findings. She denies any changes in the characteristics of her headache. She reports that her headache responded well her last emergency room visit to Dilaudid and Zofran without side effects. She denies any other complaints or concerns at this time. - Related Data Home Medications Medication Instructions Recorded Confirmed Fenofibrate [Lofibra] 160 mg PO HS 07/02/21 09/19/21 metFORMIN HCL 500 mg PO BID-W/MEALS 07/02/21 09/19/21 ARIPiprazole IM SYRINGE [Abilify 400 mg IM Q30D 07/28/21 09/19/21 Maintena Syringe] Acetaminophen Tab [Tylenol] 1,000 mg PO Q6H PRN 07/28/21 09/19/21 Desvenlafaxine [Desvenlafaxine ER] 50 mg PO DAILY 07/28/21 09/19/21 QUEtiapine [SEROquel] 400 mg PO HS 07/28/21 09/19/21 busPIRone HCL 15 mg PO QID 07/28/21 09/19/21 traZODone HCL [Desyrel] 300 mg PO HS 07/28/21 09/19/21 Hyoscyamine Sulfate [Hyoscyamine 0.125 mg SL QID PRN 09/19/21 09/19/21 Sulfate SL] Previous Rx's Medication Instructions Recorded Ondansetron Odt [Zofran Odt] 4 mg PO Q8HR PRN #12 tab 09/01/21 Allergies Allergy/AdvReac Type Severity Reaction Status Date / Time bee pollen Allergy Severe Anaphylaxis Verified 10/09/21 14:40 haloperidol [From Haldol] Allergy Severe QUIT Verified 10/09/21 14:40 BREATHING haloperidol lactate Allergy Severe QUIT Verified 10/09/21 14:40 [From Haldol] BREATHING latex Allergy Severe RASH-THROAT Verified 10/09/21 14:40 CLOSES [place] Allergy Anaphylaxis Verified 10/09/21 14:40 coconut Allergy Anaphylaxis Verified 10/09/21 14:40 morphine Allergy Rash/Hives Verified 10/09/21 14:40 pineapple Allergy Anaphylaxis Verified 10/09/21 14:40 prednisone Allergy THROAT Verified 10/09/21 14:40 SWELLS spider venom Allergy Swelling Verified 10/09/21 14:40 Sulfa (Sulfonamide Allergy THROAT Verified 10/09/21 14:40 Antibiotics) SWELLS venom-wasp Allergy Swelling Verified 10/09/21 14:40 venom-wasp protein Allergy Swelling Verified 10/09/21 14:40 promethazine HCl AdvReac Severe Nausea & Verified 10/09/21 14:40 [From Phenergan] Vomiting tramadol AdvReac Severe Nausea & Verified 10/09/21 14:40 Vomiting amoxicillin AdvReac Nausea & Verified 10/09/21 14:40 Vomiting ANTS AdvReac Mild Anaphylaxis Uncoded 10/09/21 14:40 Review of Systems ROS Statement: Those systems with pertinent positive or pertinent negative responses have been documented in the HPI. ROS Other: All systems not noted in ROS Statement are negative. Past Medical History Past Medical History: Asthma, Diabetes Mellitus, GERD/Reflux Additional Past Medical History / Comment(s): migraines, degenerative disk disease, endometriosis, lupus, pancreatitis, DM2- diet controlled History of Any Multi-Drug Resistant Organisms: None Reported Past Surgical History: Orthopedic Surgery Additional Past Surgical History / Comment(s): laparoscopc surgery for endometriosis, cyst removed from left foot, EGD, Past Anesthesia/Blood Transfusion Reactions: Previous Problems w/ Anesthesia Additional Past Anesthesia/Blood Transfusion Reaction / Comment(s): hard to wake up for 48-72 hours after laparoscopic surgery-was in hosp. for 3 days Past Psychological History: Anxiety, Depression, PTSD Smoking Status: Vaper Past Alcohol Use History: None Reported Past Drug Use History: None Reported - Past Family History Mother Family Medical History: No Reported History Additional Family Medical History / Comment(s): hx migraines Father Family Medical History: Coronary Artery Disease (CAD), Hypertension Additional Family Medical History / Comment(s): ddd, alcoholism & drug use General Exam Limitations: no limitations General appearance: alert, in no apparent distress Head exam: Present: atraumatic, normocephalic, normal inspection Eye exam: Present: other (Sunglasses intact) ENT exam: Present: normal exam, mucous membranes moist Neck exam: Present: normal inspection Respiratory exam: Present: normal lung sounds bilaterally. Absent: respiratory distress, wheezes, rales, rhonchi, stridor Cardiovascular Exam: Present: regular rate, normal rhythm, normal heart sounds. Absent: systolic murmur, diastolic murmur, rubs, gallop, clicks GI/Abdominal exam: Present: soft, normal bowel sounds. Absent: distended, tenderness, guarding, rebound, rigid Extremities exam: Present: other (Left foot surgical boot) Back exam: Present: normal inspection Neurological exam: Present: alert, oriented X3, CN II-XII intact Psychiatric exam: Present: normal affect, normal mood Skin exam: Present: warm, dry, intact, normal color. Absent: rash Course Vital Signs 10/09/21 14:40 Temperature 99.0 F Pulse Rate 125 H Respiratory 18 Rate Blood Pressure 110/79 O2 Sat by Pulse 97 Oximetry Medical Decision Making - Medical Decision Making Will check urinalysis to rule out urinary tract infection given recurrent headaches along with nausea and abdominal pain recent KUB negative no need for further diagnostic testing at this time. Urine without findings. Symptoms responded well to IM medication. Patient stable for discharge home with follow-up with her PCP. Case discussed with Dr. Peña - Lab Data Lab Results 10/09/21 Range/Units 15:18 Urine Color Yellow Urine Appearance Clear (Clear) Urine pH 5.5 (5.0-8.0) Ur Specific Ward 1.035 (1.001-1.035) Urine Protein Trace H (Negative) Urine Glucose (UA) 4+ H (Negative) Urine Ketones Negative (Negative) Urine Blood Negative (Negative) Urine Nitrite Negative (Negative) Urine Bilirubin Negative (Negative) Urine Urobilinogen <2.0 (<2.0) mg/dL Ur Leukocyte Esterase Negative (Negative) Disposition Clinical Impression: Migraine Disposition: HOME SELF-CARE Condition: Stable Instructions (If sedation given, give patient instructions): Acute Headache (ED) Additional Instructions: Please take your home migraine and diabetic medications as prescribed. Reduce caffeine intake and stimuli when headache occurs. Please return the Emergency Department if symptoms worsen or any other concerns. Is patient prescribed a controlled substance at d/c from ED?: No Referrals: Isi Carolina MD [Primary Care Provider] - 1-2 days Time of Disposition: 16:50
[2021-10-09 15:55] LABS: Appearance,Urine Clear (Clear); Bilirubin,Urine Negative (Negative); Blood,Urine Negative (Negative); Color,Urine Yellow; Glucose,Urine (UA) 4+ (Negative); Ketones,Urine Negative (Negative); Leukocyte Esterase,Urine Negative (Negative); Nitrite,Urine Negative (Negative); PH, Urine 5.5 (5.0-8.0); Protein,Urine Trace (Negative); Specific Gravity,Urine 1.035 (1.001-1.035); Urobilinogen,Urine <2.0 mg/dL (<2.0)
== END 2021-10-09 16:58 | disposition home or self-care (01) ==
LOC: EC 13:50
DX: G43.909 Migraine, unspecified, not intractable, without status migrainosus (principal); F17.200 Nicotine dependence, unspecified, uncomplicated; J45.909 Unspecified asthma, uncomplicated; E11.9 Type 2 diabetes mellitus without complications; K21.9 Gastro-esophageal reflux disease without esophagitis; Z91.018 Allergy to other foods; Z88.0 Allergy status to penicillin; Z88.8 Allergy status to other drugs, medicaments and biological substances; Z91.030 Bee allergy status; Z91.040 Latex allergy status; Z88.5 Allergy status to narcotic agent; Z91.02 Food additives allergy status; Z91.038 Other insect allergy status
CPT/HCPCS: 81003; 99283; 96372; J2405; J1170

== ENCOUNTER 2021-10-12 19:22 | Emergency (ER) | payer OTHER ==
[2021-10-12 19:38] VITALS: TEMP 98.9
[2021-10-12] MEDS ORDERED: HYDROmorphone 1 MG/ML 1 ML SYRINGE IM STA (21:20)
[2021-10-12] MEDS ORDERED: dexAMETHasone 2 MG TAB PO STA (21:21)
[2021-10-12] MEDS ORDERED: METOCLOPRAMIDE 10 MG TAB PO STA (21:22)
[2021-10-12 21:48] VITALS: BP 114/87; PULSE 105; RESP 18
--- NOTE | 2021-10-12 21:54 | ED ---
Headache HPI - General Chief Complaint: Headache Stated Complaint: Headache Mode of arrival: ambulatory Limitations: no limitations - History of Present Illness Initial Comments: 30-year-old female past medical history of diabetes, asthma, migraines presents to emergency room with reported migraine. Patient seen in the emergency department 4 days ago for similar complaint. States that she's been taking all of her home medications for migraine however they are not helping. Denies any new or worsening symptoms in relation to her headache. States that she has an appointment coming up with Dr. Whelan for her migraines. She is currently not taking any NSAIDs she has surgery planned on her foot. No fevers. No neck stiffness. No recent head trauma. No other alleviating, precipitating or marcell fying factors - Related Data Home Medications Medication Instructions Recorded Confirmed Fenofibrate [Lofibra] 160 mg PO HS 07/02/21 09/19/21 metFORMIN HCL 500 mg PO BID-W/MEALS 07/02/21 09/19/21 ARIPiprazole IM SYRINGE [Abilify 400 mg IM Q30D 07/28/21 09/19/21 Maintena Syringe] Acetaminophen Tab [Tylenol] 1,000 mg PO Q6H PRN 07/28/21 09/19/21 Desvenlafaxine [Desvenlafaxine ER] 50 mg PO DAILY 07/28/21 09/19/21 QUEtiapine [SEROquel] 400 mg PO HS 07/28/21 09/19/21 busPIRone HCL 15 mg PO QID 07/28/21 09/19/21 traZODone HCL [Desyrel] 300 mg PO HS 07/28/21 09/19/21 Hyoscyamine Sulfate [Hyoscyamine 0.125 mg SL QID PRN 09/19/21 09/19/21 Sulfate SL] Previous Rx's Medication Instructions Recorded Ondansetron Odt [Zofran Odt] 4 mg PO Q8HR PRN #12 tab 09/01/21 Allergies Allergy/AdvReac Type Severity Reaction Status Date / Time bee pollen Allergy Severe Anaphylaxis Verified 10/12/21 19:38 haloperidol [From Haldol] Allergy Severe QUIT Verified 10/12/21 19:38 BREATHING haloperidol lactate Allergy Severe QUIT Verified 10/12/21 19:38 [From Haldol] BREATHING latex Allergy Severe RASH-THROAT Verified 10/12/21 19:38 CLOSES [place] Allergy Anaphylaxis Verified 10/12/21 19:38 coconut Allergy Anaphylaxis Verified 10/12/21 19:38 morphine Allergy Rash/Hives Verified 10/12/21 19:38 pineapple Allergy Anaphylaxis Verified 10/12/21 19:38 prednisone Allergy THROAT Verified 10/12/21 19:38 SWELLS spider venom Allergy Swelling Verified 10/12/21 19:38 Sulfa (Sulfonamide Allergy THROAT Verified 10/12/21 19:38 Antibiotics) SWELLS venom-wasp Allergy Swelling Verified 10/12/21 19:38 venom-wasp protein Allergy Swelling Verified 10/12/21 19:38 promethazine HCl AdvReac Severe Nausea & Verified 10/12/21 19:38 [From Phenergan] Vomiting tramadol AdvReac Severe Nausea & Verified 10/12/21 19:38 Vomiting amoxicillin AdvReac Nausea & Verified 10/12/21 19:38 Vomiting ANTS AdvReac Mild Anaphylaxis Uncoded 10/12/21 19:38 Review of Systems ROS Statement: Those systems with pertinent positive or pertinent negative responses have been documented in the HPI. ROS Other: All systems not noted in ROS Statement are negative. Past Medical History Past Medical History: Asthma, Diabetes Mellitus, GERD/Reflux Additional Past Medical History / Comment(s): migraines, degenerative disk disease, endometriosis, lupus, pancreatitis, DM2- diet controlled History of Any Multi-Drug Resistant Organisms: None Reported Past Surgical History: Orthopedic Surgery Additional Past Surgical History / Comment(s): laparoscopc surgery for endometriosis, cyst removed from left foot, EGD, Past Anesthesia/Blood Transfusion Reactions: Previous Problems w/ Anesthesia Additional Past Anesthesia/Blood Transfusion Reaction / Comment(s): hard to wake up for 48-72 hours after laparoscopic surgery-was in hosp. for 3 days Past Psychological History: Anxiety, Depression, PTSD Smoking Status: Vaper Past Alcohol Use History: None Reported Past Drug Use History: None Reported - Past Family History Mother Family Medical History: No Reported History Additional Family Medical History / Comment(s): hx migraines Father Family Medical History: Coronary Artery Disease (CAD), Hypertension Additional Family Medical History / Comment(s): ddd, alcoholism & drug use General Exam Limitations: no limitations Course Vital Signs 10/12/21 10/12/21 19:34 21:45 Temperature 98.9 F Pulse Rate 120 H 105 H Respiratory 22 18 Rate Blood Pressure 133/95 114/87 O2 Sat by Pulse 96 96 Oximetry Medical Decision Making - Medical Decision Making Upon arrival patient was placed into room 2. Thorough history and physical exam was performed. Patient is given Decadron, Reglan and Dilaudid for pain and nausea. She is reevaluated and has improvement in her symptoms. Patient will be discharged home and instructed to follow-up with her neurologist return for any new or worsening symptoms. Patient was discharged home in stable condition Disposition Clinical Impression: Recurrent headache Disposition: HOME SELF-CARE Condition: Stable Instructions (If sedation given, give patient instructions): Acute Headache (ED) Is patient prescribed a controlled substance at d/c from ED?: No Referrals: Isi Carloina MD [Primary Care Provider] - 1-2 days Time of Disposition: 21:54
== END 2021-10-12 22:10 | disposition home or self-care (01) ==
LOC: EC 19:22
DX: R51.9 Headache, unspecified (principal); E11.9 Type 2 diabetes mellitus without complications; J45.909 Unspecified asthma, uncomplicated; K21.9 Gastro-esophageal reflux disease without esophagitis; F32.A Depression, unspecified; F41.9 Anxiety disorder, unspecified; F17.290 Nicotine dependence, other tobacco product, uncomplicated; Z79.84 Long term (current) use of oral hypoglycemic drugs; Z79.899 Other long term (current) drug therapy
CPT/HCPCS: 99283; 96372; J1170; J8540

== ENCOUNTER 2021-10-16 17:37 | Emergency (ER) | payer OTHER ==
[2021-10-16 18:02] VITALS: BP 112/75; PULSE 101; RESP 18; TEMP 98.2
[2021-10-16] MEDS ORDERED: diphenhydrAMINE 50 MG/ML 1 ML VIAL IM STA (18:49)
[2021-10-16] MEDS ORDERED: HYDROmorphone 1 MG/ML 1 ML SYRINGE IM STA ×2 (18:49→20:00)
[2021-10-16] MEDS ORDERED: METOCLOPRAMIDE 5 MG/ML 2 ML VIAL IM STA (18:49)
--- NOTE | 2021-10-16 20:03 | ED ---
General Adult HPI - General Chief complaint: Headache Stated complaint: Foot pain/headache Time Seen by Provider: 10/16/21 18:13 Source: patient, RN notes reviewed Mode of arrival: ambulatory Limitations: no limitations - History of Present Illness Initial comments: 30-year-old female presents to the emergency department for evaluation of migraine headache accompanied by photophobia and nausea, as well as right foot pain. Patient states she had surgery on her foot 2 days ago aching [place] with no improvement. States her headache is typical for her migraine. Also complains of sore throat 2-3 days. Denies fever, chills, dizziness, cough, congestion, abdominal pain, or vomiting. - Related Data Home Medications Medication Instructions Recorded Confirmed Fenofibrate [Lofibra] 160 mg PO HS 07/02/21 09/19/21 metFORMIN HCL 500 mg PO BID-W/MEALS 07/02/21 09/19/21 ARIPiprazole IM SYRINGE [Abilify 400 mg IM Q30D 07/28/21 09/19/21 Maintena Syringe] Acetaminophen Tab [Tylenol] 1,000 mg PO Q6H PRN 07/28/21 09/19/21 Desvenlafaxine [Desvenlafaxine ER] 50 mg PO DAILY 07/28/21 09/19/21 QUEtiapine [SEROquel] 400 mg PO HS 07/28/21 09/19/21 busPIRone HCL 15 mg PO QID 07/28/21 09/19/21 traZODone HCL [Desyrel] 300 mg PO HS 07/28/21 09/19/21 Hyoscyamine Sulfate [Hyoscyamine 0.125 mg SL QID PRN 09/19/21 09/19/21 Sulfate SL] Previous Rx's Medication Instructions Recorded Ondansetron Odt [Zofran Odt] 4 mg PO Q8HR PRN #12 tab 09/01/21 Allergies Allergy/AdvReac Type Severity Reaction Status Date / Time bee pollen Allergy Severe Anaphylaxis Verified 10/16/21 18:02 haloperidol [From Haldol] Allergy Severe QUIT Verified 10/16/21 18:02 BREATHING haloperidol lactate Allergy Severe QUIT Verified 10/16/21 18:02 [From Haldol] BREATHING latex Allergy Severe RASH-THROAT Verified 10/16/21 18:02 CLOSES [place] Allergy Anaphylaxis Verified 10/16/21 18:02 coconut Allergy Anaphylaxis Verified 10/16/21 18:02 morphine Allergy Rash/Hives Verified 10/16/21 18:02 pineapple Allergy Anaphylaxis Verified 10/16/21 18:02 prednisone Allergy THROAT Verified 10/16/21 18:02 SWELLS spider venom Allergy Swelling Verified 10/16/21 18:02 Sulfa (Sulfonamide Allergy THROAT Verified 10/16/21 18:02 Antibiotics) SWELLS venom-wasp Allergy Swelling Verified 10/16/21 18:02 venom-wasp protein Allergy Swelling Verified 10/16/21 18:02 promethazine HCl AdvReac Severe Nausea & Verified 10/16/21 18:02 [From Phenergan] Vomiting tramadol AdvReac Severe Nausea & Verified 10/16/21 18:02 Vomiting amoxicillin AdvReac Nausea & Verified 10/16/21 18:02 Vomiting ANTS AdvReac Mild Anaphylaxis Uncoded 10/16/21 18:02 Review of Systems ROS Statement: Those systems with pertinent positive or pertinent negative responses have been documented in the HPI. ROS Other: All systems not noted in ROS Statement are negative. Past Medical History Past Medical History: Asthma, Diabetes Mellitus, GERD/Reflux Additional Past Medical History / Comment(s): migraines, degenerative disk disease, endometriosis, lupus, pancreatitis, DM2- diet controlled History of Any Multi-Drug Resistant Organisms: None Reported Past Surgical History: Orthopedic Surgery Additional Past Surgical History / Comment(s): laparoscopc surgery for endometriosis, cyst removed from left foot, EGD, Past Anesthesia/Blood Transfusion Reactions: Previous Problems w/ Anesthesia Additional Past Anesthesia/Blood Transfusion Reaction / Comment(s): hard to wake up for 48-72 hours after laparoscopic surgery-was in hosp. for 3 days Past Psychological History: Anxiety, Depression, PTSD Smoking Status: Vaper Past Alcohol Use History: None Reported Past Drug Use History: None Reported - Past Family History Mother Family Medical History: No Reported History Additional Family Medical History / Comment(s): hx migraines Father Family Medical History: Coronary Artery Disease (CAD), Hypertension Additional Family Medical History / Comment(s): ddd, alcoholism & drug use General Exam Limitations: no limitations General appearance: alert, in no apparent distress Eye exam: Present: normal appearance. Absent: scleral icterus, conjunctival injection ENT exam: Present: normal exam, normal oropharynx, mucous membranes moist, TM's normal bilaterally Neck exam: Present: normal inspection. Absent: lymphadenopathy Respiratory exam: Present: normal lung sounds bilaterally. Absent: respiratory distress, wheezes, rales, rhonchi, stridor Cardiovascular Exam: Present: normal rhythm, tachycardia (normal for patient), normal heart sounds. Absent: systolic murmur, diastolic murmur, rubs, gallop, clicks GI/Abdominal exam: Present: soft, normal bowel sounds. Absent: distended, tenderness, guarding, rebound, rigid Right Foot/Toe exam: Absent: normal inspection (patient arrives with zach wrap and post-op shoes on the RLE d/t recent surgery) Neurological exam: Present: alert, oriented X3, CN II-XII intact, normal gait Psychiatric exam: Present: normal affect, normal mood Skin exam: Present: warm, dry, intact, normal color. Absent: rash Course Vital Signs 10/16/21 18:00 Temperature 98.2 F Pulse Rate 101 H Respiratory 18 Rate Blood Pressure 112/75 O2 Sat by Pulse 97 Oximetry Medical Decision Making - Medical Decision Making 30-year-old female presents to the emergency department for treatment of migraine headache and evaluation of sore throat. Upon exam, patient is well- appearing and in no acute distress. Physical exam findings are unremarkable with the exception of a recent orthopedic surgery from which her right lower extremity is wrapped and she is wearing a postop shoe. Patient elected to receive medications IM. She was given Dilaudid, Reglan, and Benadryl with improvement. Her Covid test was negative. She is discharged home and instructed to keep her follow-up appointments as scheduled. Return parameters discussed in detail. Patient verbalizes understanding and agrees with this plan. Attending: Robbie. - Lab Data Lab Results 10/16/21 Range/Units 19:25 Coronavirus (PCR) Not Detected (Not Detectd) Disposition Clinical Impression: Migraine headache, Post-op pain Disposition: HOME SELF-CARE Condition: Stable Instructions (If sedation given, give patient instructions): Migraine Headache (ED) Additional Instructions: Continue taking your home medications as prescribed. Follow-up with your orthopedic surgeon as scheduled. Return to the emergency department with any new, worsening, or concerning symptoms. Is patient prescribed a controlled substance at d/c from ED?: No Referrals: Isi Carolina MD [Primary Care Provider] - 1-2 days Time of Disposition: 20:03
== END 2021-10-16 20:29 | disposition home or self-care (01) ==
LOC: EC 17:37
DX: G43.909 Migraine, unspecified, not intractable, without status migrainosus (principal); G89.18 Other acute postprocedural pain; Z20.822 Contact with and (suspected) exposure to COVID-19; E11.9 Type 2 diabetes mellitus without complications; J45.909 Unspecified asthma, uncomplicated; K21.9 Gastro-esophageal reflux disease without esophagitis; F17.290 Nicotine dependence, other tobacco product, uncomplicated; Z88.8 Allergy status to other drugs, medicaments and biological substances; Z88.5 Allergy status to narcotic agent; Z91.018 Allergy to other foods; Z88.2 Allergy status to sulfonamides; Z91.030 Bee allergy status; Z88.6 Allergy status to analgesic agent; Z88.1 Allergy status to other antibiotic agents; Z91.038 Other insect allergy status; Z79.899 Other long term (current) drug therapy; Z79.84 Long term (current) use of oral hypoglycemic drugs
CPT/HCPCS: 87635; 99283; 96372; J1200; J2765; J1170

== ENCOUNTER 2021-10-17 21:22 | Emergency (ER) | payer OTHER ==
[2021-10-17 21:37] VITALS: BP 110/77; PULSE 128; RESP 18; TEMP 98.2
--- NOTE | 2021-10-17 21:44 | ED ---
General Adult HPI - General Chief complaint: Extremity Injury, Lower Stated complaint: Lt ankle surgey //Pain Time Seen by Provider: 10/17/21 21:34 Source: patient, RN notes reviewed, old records reviewed Mode of arrival: ambulatory - History of Present Illness Initial comments: 30-year-old female presents with complaints of left ankle pain. Patient states that she had surgery on October [address] Ashby to remove a bone fragment and then bumped her ankle on a table corner tonight. She states pain is severe and she wants to be sure she did not re-injure it. Location: left, lower extremity (ankle) Radiation: non-radiation Quality: aching Improves with: none - Related Data Home Medications Medication Instructions Recorded Confirmed Fenofibrate [Lofibra] 160 mg PO HS 07/02/21 09/19/21 metFORMIN HCL 500 mg PO BID-W/MEALS 07/02/21 09/19/21 ARIPiprazole IM SYRINGE [Abilify 400 mg IM Q30D 07/28/21 09/19/21 Maintena Syringe] Acetaminophen Tab [Tylenol] 1,000 mg PO Q6H PRN 07/28/21 09/19/21 Desvenlafaxine [Desvenlafaxine ER] 50 mg PO DAILY 07/28/21 09/19/21 QUEtiapine [SEROquel] 400 mg PO HS 07/28/21 09/19/21 busPIRone HCL 15 mg PO QID 07/28/21 09/19/21 traZODone HCL [Desyrel] 300 mg PO HS 07/28/21 09/19/21 Hyoscyamine Sulfate [Hyoscyamine 0.125 mg SL QID PRN 09/19/21 09/19/21 Sulfate SL] Previous Rx's Medication Instructions Recorded Ondansetron Odt [Zofran Odt] 4 mg PO Q8HR PRN #12 tab 09/01/21 Allergies Allergy/AdvReac Type Severity Reaction Status Date / Time bee pollen Allergy Severe Anaphylaxis Verified 10/17/21 21:28 haloperidol [From Haldol] Allergy Severe QUIT Verified 10/17/21 21:28 BREATHING haloperidol lactate Allergy Severe QUIT Verified 10/17/21 21:28 [From Haldol] BREATHING latex Allergy Severe RASH-THROAT Verified 10/17/21 21:28 CLOSES murrieta Allergy Anaphylaxis Verified 10/17/21 21:28 coconut Allergy Anaphylaxis Verified 10/17/21 21:28 morphine Allergy Rash/Hives Verified 10/17/21 21:28 pineapple Allergy Anaphylaxis Verified 10/17/21 21:28 prednisone Allergy THROAT Verified 10/17/21 21:28 SWELLS spider venom Allergy Swelling Verified 10/17/21 21:28 Sulfa (Sulfonamide Allergy THROAT Verified 10/17/21 21:28 Antibiotics) SWELLS venom-wasp Allergy Swelling Verified 10/17/21 21:28 venom-wasp protein Allergy Swelling Verified 10/17/21 21:28 promethazine HCl AdvReac Severe Nausea & Verified 10/17/21 21:28 [From Phenergan] Vomiting tramadol AdvReac Severe Nausea & Verified 10/17/21 21:28 Vomiting amoxicillin AdvReac Nausea & Verified 10/17/21 21:28 Vomiting ANTS AdvReac Mild Anaphylaxis Uncoded 10/17/21 21:28 Review of Systems ROS Statement: Those systems with pertinent positive or pertinent negative responses have been documented in the HPI. ROS Other: All systems not noted in ROS Statement are negative. Past Medical History Past Medical History: Asthma, Diabetes Mellitus, GERD/Reflux Additional Past Medical History / Comment(s): migraines, degenerative disk disease, endometriosis, lupus, pancreatitis, DM2- diet controlled History of Any Multi-Drug Resistant Organisms: None Reported Past Surgical History: Orthopedic Surgery Additional Past Surgical History / Comment(s): laparoscopc surgery for endometriosis, cyst removed from left foot, EGD, Past Anesthesia/Blood Transfusion Reactions: Previous Problems w/ Anesthesia Additional Past Anesthesia/Blood Transfusion Reaction / Comment(s): hard to wake up for 48-72 hours after laparoscopic surgery-was in hosp. for 3 days Past Psychological History: Anxiety, Depression, PTSD Smoking Status: Vaper Past Alcohol Use History: None Reported Past Drug Use History: None Reported - Past Family History Mother Family Medical History: No Reported History Additional Family Medical History / Comment(s): hx migraines Father Family Medical History: Coronary Artery Disease (CAD), Hypertension Additional Family Medical History / Comment(s): ddd, alcoholism & drug use General Exam General appearance: alert, in no apparent distress Head exam: Present: atraumatic, normocephalic, normal inspection Eye exam: Present: normal appearance. Absent: scleral icterus, conjunctival in jection, periorbital swelling, periorbital tenderness Neck exam: Present: normal inspection. Absent: tenderness, meningismus Respiratory exam: Absent: respiratory distress, accessory muscle use Cardiovascular Exam: Present: tachycardia Left Ankle exam: Present: tenderness, swelling (Lateral malleolus), laceration (Surgical laceration sutures are intact, no sign of erythema or exudate). Absent: deformity, erythema Foot/Toe exam: Absent: tenderness, swelling Neurovascular tendon exam: Present: no vascular compromise. Absent: abnormal cap refill, extremity cold to touch, pallor, foot drop Neurological exam: Present: alert, oriented X3, abnormal gait (Limited by pain) Psychiatric exam: Present: normal affect, normal mood Skin exam: Present: warm, dry, normal color. Absent: diaphoretic Course Vital Signs 10/17/21 21:25 Temperature 98.2 F Pulse Rate 128 H Respiratory 18 Rate Blood Pressure 110/77 O2 Sat by Pulse 97 Oximetry Medical Decision Making - Medical Decision Making Patient presents with left ankle pain status post surgery October 15 for removal of a bone fragment. She hit the ankle today on the corner of a table and had increased pain. Site is clean and dry with no area of erythema, bleeding or drainage. There is minimal bruising with swelling of the lateral malleolus. Surgical incision sutures are intact. X-ray negative for fracture. Patient was advised of the xr results, states that she is now having a migraine headache. She has no focal neurological deficits. States this is similar to her previous migraines. She was agreeable to getting a dose of Dilaudid IM. States that her is on her way to pick her up. Patient was seen yesterday for migraine headache and foot pain as well. She was given Dilaudid, Reglan and Benadryl and discharged home. I did explain to the patient that I have concerns regarding the frequency of her headaches and she should speak with her primary care doctor. She was directed to continue her previously prescribed medications. Return to the emergency room if any new or concerning symptoms. Disposition Clinical Impression: Ankle pain, left, Migraine Disposition: HOME SELF-CARE Condition: Good Instructions (If sedation given, give patient instructions): Acute Headache (ED), Contusion in Adults (ED) Additional Instructions: Rest, Ice and Elevate ankle. Follow-up with your doctor as scheduled. Return to the emergency room with any new or concerning symptoms. Continue previously prescribed medications for migraine headaches. Is patient prescribed a controlled substance at d/c from ED?: No Referrals: Isi Carolina MD [Primary Care Provider] - 1-2 days Time of Disposition: 22:18
--- NOTE | 2021-10-17 22:00 | XR ---
EXAMINATION TYPE: XR ankle complete LT DATE OF EXAM: 10/17/2021 COMPARISON: NONE HISTORY: Postop TECHNIQUE: 3 views FINDINGS: Ankle mortise is anatomic. I see no fracture nor dislocation. Joint spaces are normal IMPRESSION: Negative left ankle exam.
[2021-10-17] MEDS ORDERED: HYDROmorphone 1 MG/ML 1 ML SYRINGE IM STA (22:16)
== END 2021-10-17 21:35 | disposition home or self-care (01) ==
LOC: EC 21:22
DX: M25.572 Pain in left ankle and joints of left foot (principal); G43.909 Migraine, unspecified, not intractable, without status migrainosus; F17.290 Nicotine dependence, other tobacco product, uncomplicated; J45.909 Unspecified asthma, uncomplicated; E11.9 Type 2 diabetes mellitus without complications; K21.9 Gastro-esophageal reflux disease without esophagitis; Z91.030 Bee allergy status; Z88.8 Allergy status to other drugs, medicaments and biological substances; Z91.040 Latex allergy status; Z91.018 Allergy to other foods; Z91.038 Other insect allergy status; Z88.2 Allergy status to sulfonamides; Z88.6 Allergy status to analgesic agent; Z79.899 Other long term (current) drug therapy; Z79.84 Long term (current) use of oral hypoglycemic drugs; X58.XXXA Exposure to other specified factors, initial encounter
CPT/HCPCS: 73610; 99283; 96372; J1170

== ENCOUNTER 2021-10-21 14:32 | Emergency (ER) | payer OTHER ==
[2021-10-21] MEDS ORDERED: KETOROLAC 15 MG/ML 1 ML VIAL IVP STA (16:05)
[2021-10-21] MEDS ORDERED: METOCLOPRAMIDE 5 MG/ML 2 ML VIAL IVP STA (16:05)
[2021-10-21] MEDS ORDERED: SODIUM CHLORIDE 0.9% 1,000 ML IV STA (16:05)
[2021-10-21 16:51] LABS: Appearance,Urine Cloudy (Clear); Bilirubin,Urine Negative (Negative); Blood,Urine Large (Negative); Color,Urine Yellow; Glucose,Urine (UA) 4+ (Negative); Leukocyte Esterase,Urine Moderate (Negative); Mucus,Urine Occasional /hpf; Nitrite,Urine Negative (Negative); Protein,Urine Trace (Negative); RBC,Urine 7 /hpf (0-5); Squamous Epithelial Cell,Urine 6 /hpf (0-4); Urobilinogen,Urine <2.0 mg/dL (<2.0); WBC,Urine 19 /hpf (0-5)
[2021-10-21 17:23] LABS: Basophils # (A) 0.1 k/uL (0-0.2); Basophils % (A) 1 %; Eosinophils # (A) 0.1 k/uL (0-0.7); Eosinophils % (A) 1 %; HGB 11.7 gm/dL (11.4-16.0); Lymphocytes # (A) 1.7 k/uL (1.0-4.8); Lymphocytes % (A) 21 %; MCHC 33.4 g/dL (31.0-37.0); MCV 89.8 fL (80.0-100.0); Mean Platelet Volume 8.2; Monocytes # (A) 0.3 k/uL (0-1.0); Monocytes % (A) 4 %; Neutrophils # (A) 5.6 k/uL (1.3-7.7); Neutrophils % (A) 72 %; Platelet Count 257 k/uL (150-450); RBC 3.89 m/uL (3.80-5.40); RDW 13.2 % (11.5-15.5); WBC 7.8 k/uL (3.8-10.6)
[2021-10-21 17:36] LABS: ALT 15 U/L (4-34); AST 18 U/L (14-36); African American GFR (CKD) >90 (>60 ml/min/1.73 sqM); Albumin 4.3 g/dL (3.5-5.0); Alkaline Phosphatase 101 U/L (38-126); Amylase 43 U/L (30-110); Anion Gap 8 mmol/L; Blood Urea Nitrogen 11 mg/dL (7-17); Calcium 10.2 mg/dL (8.4-10.2); Carbon Dioxide 25 mmol/L (22-30); Chloride 103 mmol/L (98-107); Glucose 178 mg/dL (74-99); Lipase 83 U/L (23-300); Non-African American GFR(CKD) >90 (>60 ml/min/1.73 sqM); Potassium 4.3 mmol/L (3.5-5.1); Sodium 136 mmol/L (137-145); Total Bilirubin 0.5 mg/dL (0.2-1.3); Total Protein 7.6 g/dL (6.3-8.2)
[2021-10-21 17:41] LABS: INR 0.9 (<1.2); Prothrombin Time 9.9 sec (9.0-12.0)
[2021-10-21 17:45] VITALS: BP 108/75; PULSE 97; RESP 18; TEMP 98.9
[2021-10-21 17:45] LABS: Partial Thromboplastin Time 21.4 sec (22.0-30.0)
--- NOTE | 2021-10-21 18:03 | XR ---
EXAMINATION TYPE: XR KUB DATE OF EXAM: 10/21/2021 5:38 PM INDICATION: Patient age:Female; 31 years old; Reason for study: abdominal pain; COMPARISON: Radiograph 10/05/2021. TECHNIQUE: One radiographic view of the abdomen was obtained. FINDINGS: Surgical clips are seen in the right upper quadrant. The bowel gas pattern is nonspecific w ithout dilated loops of small or large bowel. There is no evidence for organomegaly or pneumoperitone um. The osseous structures are intact. No abnormal calcifications are present. Fecal material and g as are demonstrated throughout the colon and rectum. IMPRESSION: Nonspecific bowel gas pattern without radiographic evidence for acute process.
[2021-10-21 18:18] LABS: Ketones,Urine 2+ (Negative)
[2021-10-21] MEDS ORDERED: MAG HYDROX/AL HYDROX/SIMETH 30 ML, HYOSCYAMINE ELIXIR 10 ML, LIDOCAINE VISCOUS 2% 10 ML PO STA ×3 (18:31)
--- NOTE | 2021-10-21 18:34 | ED ---
Abdominal Pain HPI - General Chief Complaint: Abdominal Pain Stated Complaint: Headache,abd pain Time Seen by Provider: 10/21/21 15:58 Source: patient Mode of arrival: ambulatory Limitations: no limitations - History of Present Illness Initial Comments: Patient is a 31-year-old female presenting with chief complaint of migraine and abdominal pain. Patient states that this migraine is typical with her regular migraines, admits to photophobia, nausea, vomiting. Patient states that she ran out of her migraine medication. She is also complaining of upper abdominal pain, she states it feels similar to when she has had pancreatitis in the past. She denies any urgency, frequency, dysuria, hematuria, fever, chills, vision or hearing changes, neck pain or stiffness, loss of consciousness. - Related Data Home Medications Medication Instructions Recorded Confirmed Fenofibrate [Lofibra] 160 mg PO HS 07/02/21 09/19/21 metFORMIN HCL 500 mg PO BID-W/MEALS 07/02/21 09/19/21 ARIPiprazole IM SYRINGE [Abilify 400 mg IM Q30D 07/28/21 09/19/21 Maintena Syringe] Acetaminophen Tab [Tylenol] 1,000 mg PO Q6H PRN 07/28/21 09/19/21 Desvenlafaxine [Desvenlafaxine ER] 50 mg PO DAILY 07/28/21 09/19/21 QUEtiapine [SEROquel] 400 mg PO HS 07/28/21 09/19/21 busPIRone HCL 15 mg PO QID 07/28/21 09/19/21 traZODone HCL [Desyrel] 300 mg PO HS 07/28/21 09/19/21 Hyoscyamine Sulfate [Hyoscyamine 0.125 mg SL QID PRN 09/19/21 09/19/21 Sulfate SL] Previous Rx's Medication Instructions Recorded Ondansetron Odt [Zofran Odt] 4 mg PO Q8HR PRN #12 tab 09/01/21 Allergies Allergy/AdvReac Type Severity Reaction Status Date / Time bee pollen Allergy Severe Anaphylaxis Verified 10/21/21 15:28 haloperidol [From Haldol] Allergy Severe QUIT Verified 10/21/21 15:28 BREATHING haloperidol lactate Allergy Severe QUIT Verified 10/21/21 15:28 [From Haldol] BREATHING latex Allergy Severe RASH-THROAT Verified 10/21/21 15:28 CLOSES murrieta Allergy Anaphylaxis Verified 10/21/21 15:28 coconut Allergy Anaphylaxis Verified 10/21/21 15:28 morphine Allergy Rash/Hives Verified 10/21/21 15:28 pineapple Allergy Anaphylaxis Verified 10/21/21 15:28 prednisone Allergy THROAT Verified 10/21/21 15:28 SWELLS spider venom Allergy Swelling Verified 10/21/21 15:28 Sulfa (Sulfonamide Allergy THROAT Verified 10/21/21 15:28 Antibiotics) SWELLS venom-wasp Allergy Swelling Verified 10/21/21 15:28 venom-wasp protein Allergy Swelling Verified 10/21/21 15:28 promethazine HCl AdvReac Severe Nausea & Verified 10/21/21 15:28 [From Phenergan] Vomiting tramadol AdvReac Severe Nausea & Verified 10/21/21 15:28 Vomiting amoxicillin AdvReac Nausea & Verified 10/21/21 15:28 Vomiting ANTS AdvReac Mild Anaphylaxis Uncoded 10/21/21 15:28 Review of Systems ROS Statement: Those systems with pertinent positive or pertinent negative responses have been documented in the HPI. ROS Other: All systems not noted in ROS Statement are negative. Past Medical History Past Medical History: Asthma, Diabetes Mellitus, GERD/Reflux Additional Past Medical History / Comment(s): migraines, degenerative disk disease, endometriosis, lupus, pancreatitis, DM2- diet controlled History of Any Multi-Drug Resistant Organisms: None Reported Past Surgical History: Orthopedic Surgery Additional Past Surgical History / Comment(s): laparoscopc surgery for endometriosis, cyst removed from left foot, EGD, Past Anesthesia/Blood Transfusion Reactions: Previous Problems w/ Anesthesia Additional Past Anesthesia/Blood Transfusion Reaction / Comment(s): hard to wake up for 48-72 hours after laparoscopic surgery-was in hosp. for 3 days Past Psychological History: Anxiety, Depression, PTSD Smoking Status: Vaper Past Alcohol Use History: None Reported Past Drug Use History: None Reported - Past Family History Mother Family Medical History: No Reported History Additional Family Medical History / Comment(s): hx migraines Father Family Medical History: Coronary Artery Disease (CAD), Hypertension Additional Family Medical History / Comment(s): ddd, alcoholism & drug use General Exam Limitations: no limitations General appearance: alert, in no apparent distress Head exam: Present: atraumatic, normocephalic, normal inspection Eye exam: Present: normal appearance, EOMI. Absent: scleral icterus, pati orbital swelling Neck exam: Present: normal inspection. Absent: tenderness Respiratory exam: Present: normal lung sounds bilaterally. Absent: respiratory distress, wheezes, rales, rhonchi, stridor Cardiovascular Exam: Present: regular rate, normal rhythm, normal heart sounds. Absent: systolic murmur, diastolic murmur, rubs, gallop, clicks GI/Abdominal exam: Present: soft. Absent: distended, tenderness, guarding, rebound, rigid Neurological exam: Present: alert, oriented X3, CN II-XII intact Expanded Patient oriented to: Present: person, place, time Speech: Present: fluid speech Cranial nerves: EOM's Intact: Normal, Facial Sensation: Normal Motor strength exam: RUE: 5, LUE: 5, RLE: 5, LLE: 5 Eye Response: (4) open spontaneously Motor Response: (6) obeys commands Verbal Response: (5) oriented Psychiatric exam: Present: normal affect, normal mood Skin exam: Present: warm, dry, intact, normal color. Absent: rash Course Vital Signs 10/21/21 10/21/21 15:25 17:44 Temperature 98.5 F 98.9 F Pulse Rate 141 H 97 Respiratory 16 18 Rate Blood Pressure 103/73 108/75 O2 Sat by Pulse 97 98 Oximetry Medical Decision Making - Medical Decision Making Patient is a 31-year-old female presenting with chief complaint of migraine abdominal pain. Patient states this migraine is consistent with her regular migraines, and she is concerned her abdominal pain is similar to past episodes of pancreatitis. On examination there are no focal neurological deficits. CBC is unremarkable, glucose is 178, sodium is 136. Patient is given 1 L normal saline fluid bolus, Reglan, Toradol. Urine shows 4+ glucose that patient has tellez d consistently a previous visits. 2+ ketones likely indicates dehydration. There is 7 urine RBCs and 19 urine WBCs with squamous epithelial cells and mucus. UA today show contamination, will be sent for culture. Urine hCG is negative. KUB x-ray shows no acute process. Patient appears stable for discharge with outpatient follow-up at this time. Follow-up with PCP in one to 2 days. Report back to ER with any new or worsening symptoms. Discussed return parameters answered all questions. Patient conveyed verbal understanding and agreed to the plan. I discussed this case with my attending Dr. Avalos. - Lab Data Result diagrams: 10/21/21 16:18 10/21/21 16:18 Lab Results 10/21/21 10/21/21 10/21/21 Range/Units 16:05 16:18 16:18 WBC 7.8 (3.8-10.6) k/uL RBC 3.89 (3.80-5.40) m/uL Hgb 11.7 (11.4-16.0) gm/dL Hct 35.0 (34.0-46.0) % MCV 89.8 (80.0-100.0) fL MCH 30.0 (25.0-35.0) pg MCHC 33.4 (31.0-37.0) g/dL RDW 13.2 (11.5-15.5) % Plt Count 257 (150-450) k/uL MPV 8.2 Neutrophils % 72 % Lymphocytes % 21 % Monocytes % 4 % Eosinophils % 1 % Basophils % 1 % Neutrophils # 5.6 (1.3-7.7) k/uL Lymphocytes # 1.7 (1.0-4.8) k/uL Monocytes # 0.3 (0-1.0) k/uL Eosinophils # 0.1 (0-0.7) k/uL Basophils # 0.1 (0-0.2) k/uL PT 9.9 (9.0-12.0) sec INR 0.9 (<1.2) APTT 21.4 L (22.0-30.0) sec Sodium (137-145) mmol/L Potassium (3.5-5.1) mmol/L Chloride (98-107) mmol/L Carbon Dioxide (22-30) mmol/L Anion Gap mmol/L BUN (7-17) mg/dL Creatinine (0.52-1.04) mg/dL Est GFR (CKD-EPI)AfAm (>60 ml/min/1.73 sqM) Est GFR (CKD-EPI)NonAf (>60 ml/min/1.73 sqM) Glucose (74-99) mg/dL Plasma Lactic Acid Aurelio (0.7-2.0) mmol/L Calcium (8.4-10.2) mg/dL Total Bilirubin (0.2-1.3) mg/dL AST (14-36) U/L ALT (4-34) U/L Alkaline Phosphatase (38-126) U/L Total Protein (6.3-8.2) g/dL Albumin (3.5-5.0) g/dL Amylase (30-110) U/L Lipase (23-300) U/L Urine Color Urine Appearance (Clear) Urine pH (5.0-8.0) Ur Specific Bozman (1.001-1.035) Urine Protein (Negative) Urine Glucose (UA) (Negative) Urine Ketones (Negative) Urine Blood (Negative) Urine Nitrite (Negative) Urine Bilirubin (Negative) Urine Urobilinogen (<2.0) mg/dL Ur Leukocyte Esterase (Negative) Urine RBC (0-5) /hpf Urine WBC (0-5) /hpf Ur Squamous Epith Cells (0-4) /hpf Urine Mucus (None) /hpf Urine HCG, Qual Not Detected (Not Detectd) 10/21/21 10/21/21 10/21/21 Range/Units 16:18 16:18 16:18 WBC (3.8-10.6) k/uL RBC (3.80-5.40) m/uL Hgb (11.4-16.0) gm/dL Hct (34.0-46.0) % MCV (80.0-100.0) fL MCH (25.0-35.0) pg MCHC (31.0-37.0) g/dL RDW (11.5-15.5) % Plt Count (150-450) k/uL MPV Neutrophils % % Lymphocytes % % Monocytes % % Eosinophils % % Basophils % % Neutrophils # (1.3-7.7) k/uL Lymphocytes # (1.0-4.8) k/uL Monocytes # (0-1.0) k/uL Eosinophils # (0-0.7) k/uL Basophils # (0-0.2) k/uL PT (9.0-12.0) sec INR (<1.2) APTT (22.0-30.0) sec Sodium 136 L (137-145) mmol/L Potassium 4.3 (3.5-5.1) mmol/L Chloride 103 (98-107) mmol/L Carbon Dioxide 25 (22-30) mmol/L Anion Gap 8 mmol/L BUN 11 (7-17) mg/dL Creatinine 0.62 (0.52-1.04) mg/dL Est GFR (CKD-EPI)AfAm >90 (>60 ml/min/1.73 sqM) Est GFR (CKD-EPI)NonAf >90 (>60 ml/min/1.73 sqM) Glucose 178 H (74-99) mg/dL Plasma Lactic Acid Aurelio 1.2 (0.7-2.0) mmol/L Calcium 10.2 (8.4-10.2) mg/dL Total Bilirubin 0.5 (0.2-1.3) mg/dL AST 18 (14-36) U/L ALT 15 (4-34) U/L Alkaline Phosphatase 101 (38-126) U/L Total Protein 7.6 (6.3-8.2) g/dL Albumin 4.3 (3.5-5.0) g/dL Amylase 43 (30-110) U/L Lipase 83 (23-300) U/L Urine Color Yellow Urine Appearance Cloudy H (Clear) Urine pH 6.0 (5.0-8.0) Ur Specific Bozman 1.040 H (1.001-1.035) Urine Protein Trace H (Negative) Urine Glucose (UA) 4+ H (Negative) Urine Ketones 2+ H (Negative) Urine Blood Large H (Negative) Urine Nitrite Negative (Negative) Urine Bilirubin Negative (Negative) Urine Urobilinogen <2.0 (<2.0) mg/dL Ur Leukocyte Esterase Moderate H (Negative) Urine RBC 7 H (0-5) /hpf Urine WBC 19 H (0-5) /hpf Ur Squamous Epith Cells 6 H (0-4) /hpf Urine Mucus Occasional H (None) /hpf Urine HCG, Qual (Not Detectd) Disposition Clinical Impression: Migraine, Abdominal pain Disposition: HOME SELF-CARE Condition: Good Instructions (If sedation given, give patient instructions): Abdominal Pain (ED) Additional Instructions: Follow-up with PCP in one to 2 days. Report back to ER with any new or worsening symptoms. Is patient prescribed a controlled substance at d/c from ED?: No Referrals: Isi Carolina MD [Primary Care Provider] - 1-2 days Time of Disposition: 18:34
== END 2021-10-21 18:45 | disposition home or self-care (01) ==
LOC: EC 14:32
DX: G43.909 Migraine, unspecified, not intractable, without status migrainosus (principal); R10.9 Unspecified abdominal pain; J45.909 Unspecified asthma, uncomplicated; E11.9 Type 2 diabetes mellitus without complications; K21.9 Gastro-esophageal reflux disease without esophagitis; Z79.83 Long term (current) use of bisphosphonates; F17.209 Nicotine dependence, unspecified, with unspecified nicotine-induced disorders; Z91.030 Bee allergy status; Z91.040 Latex allergy status; Z88.5 Allergy status to narcotic agent; Z88.8 Allergy status to other drugs, medicaments and biological substances; Z88.2 Allergy status to sulfonamides; Z88.3 Allergy status to other anti-infective agents; Z88.6 Allergy status to analgesic agent
CPT/HCPCS: 36415; 80053; 82150; 83605; 83690; 85025; 85610; 85730; 81001; 81025; 87086; 74018; 99284; 96374; 96375; 96361; J2765; J1885

== ENCOUNTER 2021-10-26 12:33 | Emergency (ER) | payer OTHER ==
[2021-10-26 14:08] VITALS: TEMP 98.4
[2021-10-26] MEDS ORDERED: ONDANSETRON ODT 4 MG TAB PO STA (14:55)
[2021-10-26] MEDS ORDERED: KETOROLAC 15 MG/ML 1 ML VIAL IM STA (14:55)
--- NOTE | 2021-10-26 15:17 | XR ---
EXAMINATION TYPE: XR ankle complete LT DATE OF EXAM: 10/26/2021 COMPARISON: NONE HISTORY: Ankle pain TECHNIQUE: 3 view FINDINGS: There is mild soft tissue swelling over the lateral malleolus. Ankle mortise is anatomic. T here is no fracture nor dislocation. There is minimal calcaneal spurring. IMPRESSION: Soft tissue swe lling. No fracture seen.
[2021-10-26] MEDS ORDERED: diphenhydrAMINE 50 MG/ML 1 ML VIAL IM STA (15:28)
--- NOTE | 2021-10-26 15:28 | ED ---
General Adult HPI - General Chief complaint: Fall Stated complaint: Fall Time Seen by Provider: 10/26/21 14:42 Source: patient Mode of arrival: wheelchair Limitations: no limitations - History of Present Illness Initial comments: Patient is a 31-year-old female presenting with chief complaint of headache and ankle pain. Patient states that she fell getting out of bed this morning due to some dizziness. Patient states that she hit her head, denies loss of consciousness or use of blood thinners. Patient also injured her left ankle after falling, she had surgery on this ankle on 10/15/21. Patient admits to some nausea. Patient denies chest pain, shortness of breath, fever, chills, vomiting, hematochezia, dysuria, hematuria, urgency, frequency, vision or hearing changes. - Related Data Home Medications Medication Instructions Recorded Confirmed Fenofibrate [Lofibra] 160 mg PO HS 07/02/21 09/19/21 metFORMIN HCL 500 mg PO BID-W/MEALS 07/02/21 09/19/21 ARIPiprazole IM SYRINGE [Abilify 400 mg IM Q30D 07/28/21 09/19/21 Maintena Syringe] Acetaminophen Tab [Tylenol] 1,000 mg PO Q6H PRN 07/28/21 09/19/21 Desvenlafaxine [Desvenlafaxine ER] 50 mg PO DAILY 07/28/21 09/19/21 QUEtiapine [SEROquel] 400 mg PO HS 07/28/21 09/19/21 busPIRone HCL 15 mg PO QID 07/28/21 09/19/21 traZODone HCL [Desyrel] 300 mg PO HS 07/28/21 09/19/21 Hyoscyamine Sulfate [Hyoscyamine 0.125 mg SL QID PRN 09/19/21 09/19/21 Sulfate SL] Previous Rx's Medication Instructions Recorded Ondansetron Odt [Zofran Odt] 4 mg PO Q8HR PRN #12 tab 09/01/21 Allergies Allergy/AdvReac Type Severity Reaction Status Date / Time bee pollen Allergy Severe Anaphylaxis Verified 10/26/21 12:57 haloperidol [From Haldol] Allergy Severe QUIT Verified 10/26/21 12:57 BREATHING haloperidol lactate Allergy Severe QUIT Verified 10/26/21 12:57 [From Haldol] BREATHING latex Allergy Severe RASH-THROAT Verified 10/26/21 12:57 CLOSES [place] Allergy Anaphylaxis Verified 10/26/21 12:57 coconut Allergy Anaphylaxis Verified 10/26/21 12:57 morphine Allergy Rash/Hives Verified 10/26/21 12:57 pineapple Allergy Anaphylaxis Verified 10/26/21 12:57 prednisone Allergy THROAT Verified 10/26/21 12:57 SWELLS spider venom Allergy Swelling Verified 10/26/21 12:57 Sulfa (Sulfonamide Allergy THROAT Verified 10/26/21 12:57 Antibiotics) SWELLS venom-wasp Allergy Swelling Verified 10/26/21 12:57 venom-wasp protein Allergy Swelling Verified 10/26/21 12:57 promethazine HCl AdvReac Severe Nausea & Verified 10/26/21 12:57 [From Phenergan] Vomiting tramadol AdvReac Severe Nausea & Verified 10/26/21 12:57 Vomiting amoxicillin AdvReac Nausea & Verified 10/26/21 12:57 Vomiting ANTS AdvReac Mild Anaphylaxis Uncoded 10/26/21 12:57 Review of Systems ROS Statement: Those systems with pertinent positive or pertinent negative responses have been documented in the HPI. ROS Other: All systems not noted in ROS Statement are negative. Past Medical History Past Medical History: Asthma, Diabetes Mellitus, GERD/Reflux Additional Past Medical History / Comment(s): migraines, degenerative disk disease, endometriosis, lupus, pancreatitis, DM2- diet controlled History of Any Multi-Drug Resistant Organisms: None Reported Past Surgical History: Orthopedic Surgery Additional Past Surgical History / Comment(s): laparoscopc surgery for endometriosis, cyst removed from left foot, EGD, Past Anesthesia/Blood Transfusion Reactions: Previous Problems w/ Anesthesia Additional Past Anesthesia/Blood Transfusion Reaction / Comment(s): hard to wake up for 48-72 hours after laparoscopic surgery-was in hosp. for 3 days Past Psychological History: Anxiety, Depression, PTSD Smoking Status: Vaper Past Alcohol Use History: None Reported Past Drug Use History: None Reported - Past Family History Mother Family Medical History: No Reported History Additional Family Medical History / Comment(s): hx migraines Father Family Medical History: Coronary Artery Disease (CAD), Hypertension Additional Family Medical History / Comment(s): ddd, alcoholism & drug use General Exam Limitations: no limitations General appearance: alert, in no apparent distress Head exam: Present: atraumatic, normocephalic, normal inspection Eye exam: Present: normal appearance, PERRL, EOMI. Absent: scleral icterus, periorbital swelling Neck exam: Present: normal inspection, full ROM. Absent: tenderness Respiratory exam: Present: normal lung sounds bilaterally. Absent: respiratory distress, wheezes, rales, rhonchi, stridor Cardiovascular Exam: Present: regular rate, normal rhythm, normal heart sounds. Absent: systolic murmur, diastolic murmur, rubs, gallop, clicks Left Ankle exam: Present: normal inspection, full ROM, tenderness. Absent: swelling Neurovascular tendon exam: Present: no vascular compromise. Absent: motor deficit, sensory deficit Neurological exam: Present: alert, oriented X3, CN II-XII intact Psychiatric exam: Present: normal affect, normal mood Skin exam: Present: warm, dry, intact, normal color. Absent: rash Course Vital Signs 10/26/21 10/26/21 10/26/21 12:47 14:05 15:44 Temperature 99.0 F 98.4 F Pulse Rate 147 H 147 H 104 H Respiratory 18 20 18 Rate Blood Pressure 119/84 122/86 126/100 O2 Sat by Pulse 98 98 98 Oximetry Medical Decision Making - Medical Decision Making patient is a 31-year-old female presenting with chief complaint of headache and ankle pain. Patient fell out of bed this morning, states that she hit her head, had no loss of consciousness. She also states that she injured her left ankle that she recently had surgery on. On examination she has no focal neurological deficits, denies vomiting, no signs of fracture, no amnesia regarding the event. Left ankle is tender to palpation laterally. Patient does not qualify by [place] head CT rules. X-ray shows no fracture or dislocation of the ankle. Patient was given Toradol and Zofran, she reports improvement in her symptoms. Patient appears stable for discharge at this time. Follow-up with PCP in one to 2 days. Report back to ER with any new or worsening symptoms. I discussed return parameters answered all questions. Patient conveyed verbal understanding and agreed to the plan. My attending is Dr. Avalos. Disposition Clinical Impression: Ankle strain, Head injury Disposition: HOME SELF-CARE Condition: Good Instructions (If sedation given, give patient instructions): Head Injury (ED), Ankle Strain (ED) Additional Instructions: Follow-up with PCP in one to 2 days. Report back to ER with any new or worsening symptoms. take Motrin and Tylenol as needed for pain control. Is patient prescribed a controlled substance at d/c from ED?: No Referrals: Isi Carolina MD [Primary Care Provider] - 1-2 days Time of Disposition: 15:28
[2021-10-26 15:46] VITALS: BP 126/100; PULSE 104; RESP 18
== END 2021-10-26 16:08 | disposition home or self-care (01) ==
LOC: EC 12:33
DX: S96.819A Strain of other specified muscles and tendons at ankle and foot level, unspecified foot, initial encounter (principal); S09.90XA Unspecified injury of head, initial encounter; J45.909 Unspecified asthma, uncomplicated; E11.9 Type 2 diabetes mellitus without complications; K21.9 Gastro-esophageal reflux disease without esophagitis; F41.9 Anxiety disorder, unspecified; F32.A Depression, unspecified; F17.290 Nicotine dependence, other tobacco product, uncomplicated; Z91.030 Bee allergy status; Z88.8 Allergy status to other drugs, medicaments and biological substances; Z91.040 Latex allergy status; Z91.018 Allergy to other foods; Z91.038 Other insect allergy status; Z88.2 Allergy status to sulfonamides; Z88.5 Allergy status to narcotic agent; Z88.0 Allergy status to penicillin; W06.XXXA Fall from bed, initial encounter
CPT/HCPCS: 99284; 96372 ×2; 73610; J1200; J1885

== ENCOUNTER 2021-10-29 22:22 | Emergency (ER) | payer OTHER ==
[2021-10-29 22:57] VITALS: RESP 16; TEMP 99.1
[2021-10-30 03:04] LABS: Appearance,Urine Cloudy (Clear); Bacteria,Urine Rare /hpf; Bilirubin,Urine Negative (Negative); Blood,Urine Small (Negative); Budding Yeast,Urine Few /hpf; Color,Urine Light Yellow; Glucose,Urine (UA) 4+ (Negative); Ketones,Urine Negative (Negative); Leukocyte Esterase,Urine Small (Negative); Nitrite,Urine Negative (Negative); Protein,Urine Negative (Negative); RBC,Urine 8 /hpf (0-5); Specific Gravity,Urine 1.034 (1.001-1.035); Squamous Epithelial Cell,Urine 4 /hpf (0-4); Urobilinogen,Urine <2.0 mg/dL (<2.0); WBC,Urine 13 /hpf (0-5)
[2021-10-30 04:03] LABS: Basophils % (A) 0 %; Eosinophils # (A) 0.1 k/uL (0-0.7); Eosinophils % (A) 2 %; Lymphocytes # (A) 1.8 k/uL (1.0-4.8); Lymphocytes % (A) 30 %; MCH 28.8 pg (25.0-35.0); MCHC 32.1 g/dL (31.0-37.0); MCV 89.7 fL (80.0-100.0); Mean Platelet Volume 8.1; Monocytes # (A) 0.3 k/uL (0-1.0); Monocytes % (A) 4 %; Neutrophils # (A) 3.7 k/uL (1.3-7.7); Neutrophils % (A) 62 %; Platelet Count 272 k/uL (150-450); RBC 3.46 m/uL (3.80-5.40); RDW 13.5 % (11.5-15.5); WBC 5.9 k/uL (3.8-10.6)
[2021-10-30] MEDS ORDERED: KETOROLAC 15 MG/ML 1 ML VIAL IVP STA (04:11)
[2021-10-30] MEDS ORDERED: DICYCLOMINE 10 MG/ML 2 ML AMP IM STA (04:12)
[2021-10-30] MEDS ORDERED: diphenhydrAMINE 50 MG/ML 1 ML VIAL IVP STA (04:34)
[2021-10-30 04:49] LABS: ALT 9 U/L (4-34); AST 12 U/L (14-36); African American GFR (CKD) >90 (>60 ml/min/1.73 sqM); Albumin 3.6 g/dL (3.5-5.0); Alkaline Phosphatase 91 U/L (38-126); Amylase 36 U/L (30-110); Anion Gap 6 mmol/L; Blood Urea Nitrogen 5 mg/dL (7-17); Carbon Dioxide 22 mmol/L (22-30); Chloride 106 mmol/L (98-107); Glucose 254 mg/dL (74-99); Lipase 161 U/L (23-300); Non-African American GFR(CKD) >90 (>60 ml/min/1.73 sqM); Sodium 134 mmol/L (137-145); Total Bilirubin 0.3 mg/dL (0.2-1.3); Total Protein 6.7 g/dL (6.3-8.2)
--- NOTE | 2021-10-30 05:33 | ED ---
Abdominal Pain HPI - General Chief Complaint: Abdominal Pain Stated Complaint: Abdominal pain Time Seen by Provider: 10/30/21 03:15 Source: patient Mode of arrival: wheelchair Limitations: no limitations - History of Present Illness MD Complaint: abdominal pain -: hour(s) Location: epigastric Radiation: none Migration to: no migration Severity: severe Quality: cramping, aching, burning Consistency: constant Improves With: nothing Worsens With: nothing Associated Symptoms: nausea - Related Data Home Medications Medication Instructions Recorded Confirmed Fenofibrate [Lofibra] 160 mg PO HS 07/02/21 09/19/21 metFORMIN HCL 500 mg PO BID-W/MEALS 07/02/21 09/19/21 ARIPiprazole IM SYRINGE [Abilify 400 mg IM Q30D 07/28/21 09/19/21 Maintena Syringe] Acetaminophen Tab [Tylenol] 1,000 mg PO Q6H PRN 07/28/21 09/19/21 Desvenlafaxine [Desvenlafaxine ER] 50 mg PO DAILY 07/28/21 09/19/21 QUEtiapine [SEROquel] 400 mg PO HS 07/28/21 09/19/21 busPIRone HCL 15 mg PO QID 07/28/21 09/19/21 traZODone HCL [Desyrel] 300 mg PO HS 07/28/21 09/19/21 Hyoscyamine Sulfate [Hyoscyamine 0.125 mg SL QID PRN 09/19/21 09/19/21 Sulfate SL] Previous Rx's Medication Instructions Recorded Ondansetron Odt [Zofran Odt] 4 mg PO Q8HR PRN #12 tab 09/01/21 Allergies Allergy/AdvReac Type Severity Reaction Status Date / Time bee pollen Allergy Severe Anaphylaxis Verified 10/31/21 23:29 haloperidol [From Haldol] Allergy Severe QUIT Verified 10/31/21 23:29 BREATHING haloperidol lactate Allergy Severe QUIT Verified 10/31/21 23:29 [From Haldol] BREATHING latex Allergy Severe RASH-THROAT Verified 10/31/21 23:29 CLOSES [place] Allergy Anaphylaxis Verified 10/31/21 23:29 coconut Allergy Anaphylaxis Verified 10/31/21 23:29 morphine Allergy Rash/Hives Verified 10/31/21 23:29 pineapple Allergy Anaphylaxis Verified 10/31/21 23:29 prednisone Allergy THROAT Verified 10/31/21 23:29 SWELLS spider venom Allergy Swelling Verified 10/31/21 23:29 Sulfa (Sulfonamide Allergy THROAT Verified 10/31/21 23:29 Antibiotics) SWELLS venom-wasp Allergy Swelling Verified 10/31/21 23:29 venom-wasp protein Allergy Swelling Verified 10/31/21 23:29 promethazine HCl AdvReac Severe Nausea & Verified 10/31/21 23:29 [From Phenergan] Vomiting tramadol AdvReac Severe Nausea & Verified 10/31/21 23:29 Vomiting amoxicillin AdvReac Nausea & Verified 10/31/21 23:29 Vomiting ANTS AdvReac Mild Anaphylaxis Uncoded 10/31/21 23:29 Review of Systems ROS Statement: Those systems with pertinent positive or pertinent negative responses have been documented in the HPI. ROS Other: All systems not noted in ROS Statement are negative. Constitutional: Denies: fever, chills Respiratory: Denies: cough, dyspnea Cardiovascular: Denies: chest pain, palpitations, edema Gastrointestinal: Reports: abdominal pain, nausea. Denies: vomiting, diarrhea, constipation, melena, hematochezia Genitourinary: Denies: urgency, dysuria, frequency, hematuria Musculoskeletal: Denies: back pain Skin: Denies: rash Neurological: Denies: headache, weakness Past Medical History Past Medical History: Asthma, Diabetes Mellitus, GERD/Reflux Additional Past Medical History / Comment(s): migraines, degenerative disk disease, endometriosis, lupus, pancreatitis, DM2- diet controlled History of Any Multi-Drug Resistant Organisms: None Reported Past Surgical History: Orthopedic Surgery Additional Past Surgical History / Comment(s): laparoscopc surgery for endomet riosis, cyst removed from left foot, EGD, Past Anesthesia/Blood Transfusion Reactions: Previous Problems w/ Anesthesia Additional Past Anesthesia/Blood Transfusion Reaction / Comment(s): hard to wake up for 48-72 hours after laparoscopic surgery-was in hosp. for 3 days Past Psychological History: Anxiety, Depression, PTSD Smoking Status: Vaper Past Alcohol Use History: None Reported Past Drug Use History: None Reported - Past Family History Mother Family Medical History: No Reported History Additional Family Medical History / Comment(s): hx migraines Father Family Medical History: Coronary Artery Disease (CAD), Hypertension Additional Family Medical History / Comment(s): ddd, alcoholism & drug use General Exam Limitations: no limitations General appearance: alert, in no apparent distress Head exam: Present: atraumatic, normocephalic Eye exam: Present: normal appearance. Absent: scleral icterus, conjunctival injection Respiratory exam: Present: normal lung sounds bilaterally. Absent: respiratory distress, wheezes, rales, rhonchi, stridor Cardiovascular Exam: Present: regular rate, normal rhythm, normal heart sounds. Absent: systolic murmur, diastolic murmur, rubs, gallop GI/Abdominal exam: Present: soft. Absent: distended, tenderness, guarding, rebound, rigid, mass, pulsatile mass, hernia Extremities exam: Present: normal inspection, normal capillary refill. Absent: pedal edema, calf tenderness Back exam: Present: normal inspection. Absent: CVA tenderness (R), CVA tenderness (L) Neurological exam: Present: alert Skin exam: Present: warm, dry, intact, normal color. Absent: rash Course Vital Signs 10/29/21 10/30/21 10/30/21 22:54 04:42 05:10 Temperature 99.1 F Pulse Rate 132 H 111 H 100 Respiratory 16 16 16 Rate Blood Pressure 132/83 98/67 107/65 O2 Sat by Pulse 98 98 99 Oximetry 10/30/21 05:41 Temperature Pulse Rate 106 H Respiratory 16 Rate Blood Pressure 112/72 O2 Sat by Pulse 94 L Oximetry Medical Decision Making - Lab Data Result diagrams: 10/30/21 03:46 10/30/21 03:46 Lab Results 10/30/21 10/30/21 10/30/21 Range/Units 00:53 00:53 03:46 WBC 5.9 (3.8-10.6) k/uL RBC 3.46 L (3.80-5.40) m/uL Hgb 10.0 L D (11.4-16.0) gm/dL Hct 31.0 L (34.0-46.0) % MCV 89.7 (80.0-100.0) fL MCH 28.8 (25.0-35.0) pg MCHC 32.1 (31.0-37.0) g/dL RDW 13.5 (11.5-15.5) % Plt Count 272 (150-450) k/uL MPV 8.1 Neutrophils % 62 % Lymphocytes % 30 % Monocytes % 4 % Eosinophils % 2 % Basophils % 0 % Neutrophils # 3.7 (1.3-7.7) k/uL Lymphocytes # 1.8 (1.0-4.8) k/uL Monocytes # 0.3 (0-1.0) k/uL Eosinophils # 0.1 (0-0.7) k/uL Basophils # 0.0 (0-0.2) k/uL Sodium (137-145) mmol/L Potassium (3.5-5.1) mmol/L Chloride (98-107) mmol/L Carbon Dioxide (22-30) mmol/L Anion Gap mmol/L BUN (7-17) mg/dL Creatinine (0.52-1.04) mg/dL Est GFR (CKD-EPI)AfAm (>60 ml/min/1.73 sqM) Est GFR (CKD-EPI)NonAf (>60 ml/min/1.73 sqM) Glucose (74-99) mg/dL Calcium (8.4-10.2) mg/dL Total Bilirubin (0.2-1.3) mg/dL AST (14-36) U/L ALT (4-34) U/L Alkaline Phosphatase (38-126) U/L Total Protein (6.3-8.2) g/dL Albumin (3.5-5.0) g/dL Amylase (30-110) U/L Lipase (23-300) U/L Urine Color Light Yellow Urine Appearance Cloudy H (Clear) Urine pH 6.0 (5.0-8.0) Ur Specific [place] 1.034 (1.001-1.035) Urine Protein Negative (Negative) Urine Glucose (UA) 4+ H (Negative) Urine Ketones Negative (Negative) Urine Blood Small H (Negative) Urine Nitrite Negative (Negative) Urine Bilirubin Negative (Negative) Urine Urobilinogen <2.0 (<2.0) mg/dL Ur Leukocyte Esterase Small H (Negative) Urine RBC 8 H (0-5) /hpf Urine WBC 13 H (0-5) /hpf Ur Squamous Epith Cells 4 (0-4) /hpf Urine Bacteria Rare H (None) /hpf Urine Yeast (Budding) Few H (None) /hpf Urine HCG, Qual Not Detected (Not Detectd) 07/21/22 Range/Units 03:46 WBC (3.8-10.6) k/uL RBC (3.80-5.40) m/uL Hgb (11.4-16.0) gm/dL Hct (34.0-46.0) % MCV (80.0-100.0) fL MCH (25.0-35.0) pg MCHC (31.0-37.0) g/dL RDW (11.5-15.5) % Plt Count (150-450) k/uL MPV Neutrophils % % Lymphocytes % % Monocytes % % Eosinophils % % Basophils % % Neutrophils # (1.3-7.7) k/uL Lymphocytes # (1.0-4.8) k/uL Monocytes # (0-1.0) k/uL Eosinophils # (0-0.7) k/uL Basophils # (0-0.2) k/uL Sodium 134 L (137-145) mmol/L Potassium 4.0 (3.5-5.1) mmol/L Chloride 106 (98-107) mmol/L Carbon Dioxide 22 (22-30) mmol/L Anion Gap 6 mmol/L BUN 5 L (7-17) mg/dL Creatinine 0.49 L (0.52-1.04) mg/dL Est GFR (CKD-EPI)AfAm >90 (>60 ml/min/1.73 sqM) Est GFR (CKD-EPI)NonAf >90 (>60 ml/min/1.73 sqM) Glucose 254 H (74-99) mg/dL Calcium 10.0 (8.4-10.2) mg/dL Total Bilirubin 0.3 (0.2-1.3) mg/dL AST 12 L (14-36) U/L ALT 9 (4-34) U/L Alkaline Phosphatase 91 (38-126) U/L Total Protein 6.7 (6.3-8.2) g/dL Albumin 3.6 (3.5-5.0) g/dL Amylase 36 (30-110) U/L Lipase 161 (23-300) U/L Urine Color Urine Appearance (Clear) Urine pH (5.0-8.0) Ur Specific [place] (1.001-1.035) Urine Protein (Negative) Urine Glucose (UA) (Negative) Urine Ketones (Negative) Urine Blood (Negative) Urine Nitrite (Negative) Urine Bilirubin (Negative) Urine Urobilinogen (<2.0) mg/dL Ur Leukocyte Esterase (Negative) Urine RBC (0-5) /hpf Urine WBC (0-5) /hpf Ur Squamous Epith Cells (0-4) /hpf Urine Bacteria (None) /hpf Urine Yeast (Budding) (None) /hpf Urine HCG, Qual (Not Detectd) Disposition Clinical Impression: Abdominal pain Disposition: HOME SELF-CARE Condition: Good Instructions (If sedation given, give patient instructions): Abdominal Pain (ED) Is patient prescribed a controlled substance at d/c from ED?: No Referrals: Isi Carolina MD [Primary Care Provider] - 1-2 days
[2021-10-30 05:42] VITALS: BP 112/72; PULSE 106
== END 2021-10-30 05:44 | disposition home or self-care (01) ==
LOC: EC 22:22
DX: R10.13 Epigastric pain (principal); F17.290 Nicotine dependence, other tobacco product, uncomplicated; J45.909 Unspecified asthma, uncomplicated; E11.9 Type 2 diabetes mellitus without complications; K21.9 Gastro-esophageal reflux disease without esophagitis; Z91.030 Bee allergy status; Z88.8 Allergy status to other drugs, medicaments and biological substances; Z91.018 Allergy to other foods; Z88.2 Allergy status to sulfonamides; Z91.038 Other insect allergy status; Z88.5 Allergy status to narcotic agent; Z91.040 Latex allergy status; Z79.899 Other long term (current) drug therapy; Z79.84 Long term (current) use of oral hypoglycemic drugs; Z87.19 Personal history of other diseases of the digestive system
CPT/HCPCS: 36415; 80053; 82150; 83690; 85025; 81001; 81025; 87086; 99284; 96374; 96375; 96372; J1200; J0500; J1885

== ENCOUNTER 2021-10-31 21:45 | Emergency (ER) | payer OTHER ==
[2021-10-31 23:29] VITALS: TEMP 98
[2021-11-01] MEDS ORDERED: diphenhydrAMINE 50 MG/ML 1 ML VIAL IM STA (01:44)
[2021-11-01] MEDS ORDERED: METOCLOPRAMIDE 5 MG/ML 2 ML VIAL IM STA (01:44)
--- NOTE | 2021-11-01 03:43 | ED ---
Headache HPI - General Chief Complaint: Headache Stated Complaint: Headache Time Seen by Provider: 11/01/21 02:32 Mode of arrival: ambulatory - History of Present Illness Complaint: headache Onset/Timin -: days(s) Onset Description: gradual Location: frontal Severity: moderate Quality: aching, throbbing, similar to previous headaches Consistency: constant Improves With: nothing Worsens With: none Associated Symptoms: nausea - Related Data Home Medications Medication Instructions Recorded Confirmed Fenofibrate [Lofibra] 160 mg PO HS 07/02/21 09/19/21 metFORMIN HCL 500 mg PO BID-W/MEALS 07/02/21 09/19/21 ARIPiprazole IM SYRINGE [Abilify 400 mg IM Q30D 07/28/21 09/19/21 Maintena Syringe] Acetaminophen Tab [Tylenol] 1,000 mg PO Q6H PRN 07/28/21 09/19/21 Desvenlafaxine [Desvenlafaxine ER] 50 mg PO DAILY 07/28/21 09/19/21 QUEtiapine [SEROquel] 400 mg PO HS 07/28/21 09/19/21 busPIRone HCL 15 mg PO QID 07/28/21 09/19/21 traZODone HCL [Desyrel] 300 mg PO HS 07/28/21 09/19/21 Hyoscyamine Sulfate [Hyoscyamine 0.125 mg SL QID PRN 09/19/21 09/19/21 Sulfate SL] Previous Rx's Medication Instructions Recorded Ondansetron Odt [Zofran Odt] 4 mg PO Q8HR PRN #12 tab 09/01/21 Allergies Allergy/AdvReac Type Severity Reaction Status Date / Time bee pollen Allergy Severe Anaphylaxis Verified 10/31/21 23:29 haloperidol [From Haldol] Allergy Severe QUIT Verified 10/31/21 23:29 BREATHING haloperidol lactate Allergy Severe QUIT Verified 10/31/21 23:29 [From Haldol] BREATHING latex Allergy Severe RASH-THROAT Verified 10/31/21 23:29 CLOSES [place] Allergy Anaphylaxis Verified 10/31/21 23:29 coconut Allergy Anaphylaxis Verified 10/31/21 23:29 morphine Allergy Rash/Hives Verified 10/31/21 23:29 pineapple Allergy Anaphylaxis Verified 10/31/21 23:29 prednisone Allergy THROAT Verified 10/31/21 23:29 SWELLS spider venom Allergy Swelling Verified 10/31/21 23:29 Sulfa (Sulfonamide Allergy THROAT Verified 10/31/21 23:29 Antibiotics) SWELLS venom-wasp Allergy Swelling Verified 10/31/21 23:29 venom-wasp protein Allergy Swelling Verified 10/31/21 23:29 promethazine HCl AdvReac Severe Nausea & Verified 10/31/21 23:29 [From Phenergan] Vomiting tramadol AdvReac Severe Nausea & Verified 10/31/21 23:29 Vomiting amoxicillin AdvReac Nausea & Verified 10/31/21 23:29 Vomiting ANTS AdvReac Mild Anaphylaxis Uncoded 10/31/21 23:29 Review of Systems ROS Statement: Those systems with pertinent positive or pertinent negative responses have been documented in the HPI. ROS Other: All systems not noted in ROS Statement are negative. Constitutional: Denies: fever, chills Eyes: Denies: eye pain, vision change ENT: Denies: ear pain, hearing loss, congestion Respiratory: Denies: cough, dyspnea Cardiovascular: Denies: chest pain, syncope Gastrointestinal: Reports: nausea. Denies: abdominal pain, vomiting, diarrhea Skin: Denies: rash Neurological: Reports: headache. Denies: weakness, numbness, paresthesias, confusion Past Medical History Past Medical History: Asthma, Diabetes Mellitus, GERD/Reflux Additional Past Medical History / Comment(s): migraines, degenerative disk disease, endometriosis, lupus, pancreatitis, DM2- diet controlled History of Any Multi-Drug Resistant Organisms: None Reported Past Surgical History: Orthopedic Surgery Additional Past Surgical History / Comment(s): laparoscopc surgery for endometriosis, cyst removed from left foot, EGD, Past Anesthesia/Blood Transfusion Reactions: Previous Problems w/ Anesthesia Additional Past Anesthesia/Blood Transfusion Reaction / Comment(s): hard to wake up for 48-72 hours after laparoscopic surgery-was in hosp. for 3 days Past Psychological History: Anxiety, Depression, PTSD Smoking Status: Vaper Past Alcohol Use History: None Reported Past Drug Use History: None Reported - Past Family History Mother Family Medical History: No Reported History Additional Family Medical History / Comment(s): hx migraines Father Family Medical History: Coronary Artery Disease (CAD), Hypertension Additional Family Medical History / Comment(s): ddd, alcoholism & drug use General Exam General appearance: alert, in no apparent distress Head exam: Present: atraumatic, normocephalic Eye exam: Present: normal appearance, PERRL, EOMI. Absent: scleral icterus, conjunctival injection, nystagmus ENT exam: Present: normal oropharynx Neck exam: Present: normal inspection, full ROM. Absent: meningismus, lymphadenopathy Respiratory exam: Present: normal lung sounds bilaterally. Absent: respiratory distress, wheezes, rales, rhonchi Cardiovascular Exam: Present: regular rate, normal rhythm, normal heart sounds. Absent: systolic murmur, diastolic murmur, rubs, gallop Neurological exam: Present: alert, oriented X3, CN II-XII intact. Absent: motor sensory deficit Skin exam: Present: warm, dry, intact, normal color. Absent: rash Course Vital Signs 10/31/21 11/01/21 23:27 04:36 Temperature 98 F Pulse Rate 110 H 112 H Respiratory 19 18 Rate Blood Pressure 137/98 113/77 O2 Sat by Pulse 99 97 Oximetry Disposition Clinical Impression: Headache Disposition: HOME SELF-CARE Condition: Good Instructions (If sedation given, give patient instructions): Acute Headache (ED) Is patient prescribed a controlled substance at d/c from ED?: No Referrals: Isi Carolina MD [Primary Care Provider] - 1-2 days
[2021-11-01 04:37] VITALS: BP 113/77; PULSE 112; RESP 18
== END 2021-11-01 04:36 | disposition home or self-care (01) ==
LOC: EC 21:45
DX: R51.9 Headache, unspecified (principal); R11.0 Nausea; F17.290 Nicotine dependence, other tobacco product, uncomplicated; J45.909 Unspecified asthma, uncomplicated; E11.9 Type 2 diabetes mellitus without complications; K21.9 Gastro-esophageal reflux disease without esophagitis; Z86.69 Personal history of other diseases of the nervous system and sense organs; Z91.038 Other insect allergy status; Z88.1 Allergy status to other antibiotic agents; Z88.0 Allergy status to penicillin; Z88.6 Allergy status to analgesic agent; Z88.8 Allergy status to other drugs, medicaments and biological substances; Z88.2 Allergy status to sulfonamides; Z91.030 Bee allergy status; Z88.5 Allergy status to narcotic agent; Z91.018 Allergy to other foods; Z91.040 Latex allergy status; Z79.84 Long term (current) use of oral hypoglycemic drugs; Z79.899 Other long term (current) drug therapy
CPT/HCPCS: 99283; 96372; J1200; J2765

== ENCOUNTER 2021-11-08 14:56 | Emergency (ER) | payer OTHER ==
[2021-11-08] MEDS ORDERED: diphenhydrAMINE 50 MG/ML 1 ML VIAL IVP STA (15:32)
[2021-11-08] MEDS ORDERED: KETOROLAC 15 MG/ML 1 ML VIAL IVP STA (15:32)
[2021-11-08] MEDS ORDERED: METOCLOPRAMIDE 5 MG/ML 2 ML VIAL IVP STA (15:32)
--- NOTE | 2021-11-08 16:01 | ED ---
General Adult HPI - General Chief complaint: Headache Stated complaint: Headache Time Seen by Provider: 11/08/21 15:02 Source: patient, RN notes reviewed Mode of arrival: ambulatory Limitations: no limitations - History of Present Illness Initial comments: 31-year-old female with a past medical history of chronic migraines presents to the emergency room for a chief complaint of migraine headache. Patient states that 3 days ago she developed a migraine headache. States it goes up the back of her head and into her forehead. Patient admits to nausea and light sensitivity. Patient states this feels like her typical migraine. Patient would like some pain relief from this.Patient has no other complaints at this time including shortness of breath, chest pain, abdominal pain, vomiting, or visual changes. - Related Data Home Medications Medication Instructions Recorded Confirmed Fenofibrate [Lofibra] 160 mg PO HS 07/02/21 09/19/21 metFORMIN HCL 500 mg PO BID-W/MEALS 07/02/21 09/19/21 ARIPiprazole IM SYRINGE [Abilify 400 mg IM Q30D 07/28/21 09/19/21 Maintena Syringe] Acetaminophen Tab [Tylenol] 1,000 mg PO Q6H PRN 07/28/21 09/19/21 Desvenlafaxine [Desvenlafaxine ER] 50 mg PO DAILY 07/28/21 09/19/21 QUEtiapine [SEROquel] 400 mg PO HS 07/28/21 09/19/21 busPIRone HCL 15 mg PO QID 07/28/21 09/19/21 traZODone HCL [Desyrel] 300 mg PO HS 07/28/21 09/19/21 Hyoscyamine Sulfate [Hyoscyamine 0.125 mg SL QID PRN 09/19/21 09/19/21 Sulfate SL] Previous Rx's Medication Instructions Recorded Ondansetron Odt [Zofran Odt] 4 mg PO Q8HR PRN #12 tab 09/01/21 Allergies Allergy/AdvReac Type Severity Reaction Status Date / Time bee pollen Allergy Severe Anaphylaxis Verified 11/08/21 15:01 haloperidol [From Haldol] Allergy Severe QUIT Verified 11/08/21 15:01 BREATHING haloperidol lactate Allergy Severe QUIT Verified 11/08/21 15:01 [From Haldol] BREATHING latex Allergy Severe RASH-THROAT Verified 11/08/21 15:01 CLOSES [place] Allergy Anaphylaxis Verified 11/08/21 15:01 coconut Allergy Anaphylaxis Verified 11/08/21 15:01 morphine Allergy Rash/Hives Verified 11/08/21 15:01 pineapple Allergy Anaphylaxis Verified 11/08/21 15:01 prednisone Allergy THROAT Verified 11/08/21 15:01 SWELLS spider venom Allergy Swelling Verified 11/08/21 15:01 Sulfa (Sulfonamide Allergy THROAT Verified 11/08/21 15:01 Antibiotics) SWELLS venom-wasp Allergy Swelling Verified 11/08/21 15:01 venom-wasp protein Allergy Swelling Verified 11/08/21 15:01 promethazine HCl AdvReac Severe Nausea & Verified 11/08/21 15:01 [From Phenergan] Vomiting tramadol AdvReac Severe Nausea & Verified 11/08/21 15:01 Vomiting amoxicillin AdvReac Nausea & Verified 11/08/21 15:01 Vomiting ANTS AdvReac Mild Anaphylaxis Uncoded 11/08/21 15:01 Review of Systems ROS Statement: Those systems with pertinent positive or pertinent negative responses have been documented in the HPI. ROS Other: All systems not noted in ROS Statement are negative. Past Medical History Past Medical History: Asthma, Diabetes Mellitus, GERD/Reflux Additional Past Medical History / Comment(s): migraines, degenerative disk disease, endometriosis, lupus, pancreatitis, DM2- diet controlled History of Any Multi-Drug Resistant Organisms: None Reported Past Surgical History: Orthopedic Surgery Additional Past Surgical History / Comment(s): laparoscopc surgery for endometriosis, cyst removed from left foot, EGD, Past Anesthesia/Blood Transfusion Reactions: Previous Problems w/ Anesthesia Additional Past Anesthesia/Blood Transfusion Reaction / Comment(s): hard to wake up for 48-72 hours after laparoscopic surgery-was in hosp. for 3 days Past Psychological History: Anxiety, Depression, PTSD Smoking Status: Vaper Past Alcohol Use History: None Reported Past Drug Use History: None Reported - Past Family History Mother Family Medical History: No Reported History Additional Family Medical History / Comment(s): hx migraines Father Family Medical History: Coronary Artery Disease (CAD), Hypertension Additional Family Medical History / Comment(s): ddd, alcoholism & drug use General Exam Limitations: no limitations General appearance: alert, in no apparent distress Head exam: Present: atraumatic Eye exam: Present: normal appearance, PERRL, EOMI. Absent: scleral icterus, conjunctival injection ENT exam: Present: normal exam, mucous membranes moist Neck exam: Present: normal inspection, full ROM. Absent: tenderness Respiratory exam: Present: normal lung sounds bilaterally. Absent: respiratory distress, wheezes Cardiovascular Exam: Present: regular rate, normal rhythm, normal heart sounds Neurological exam: Present: alert, oriented X3 Course Vital Signs 11/08/21 11/08/21 15:00 16:11 Temperature 98 F Pulse Rate 113 H 108 H Respiratory 20 18 Rate Blood Pressure 116/85 107/76 O2 Sat by Pulse 99 96 Oximetry Medical Decision Making - Medical Decision Making Patient was given IV meds, pain has improved. She will be discharged home Disposition Clinical Impression: Migraine headache Disposition: HOME SELF-CARE Condition: Good Instructions (If sedation given, give patient instructions): Acute Headache (ED) Additional Instructions: Please follow up with your doctor. Return to the ER for worsening symptoms. Is patient prescribed a controlled substance at d/c from ED?: No Referrals: Isi Carolina MD [Primary Care Provider] - 1-2 days Time of Disposition: 16:37
[2021-11-08 16:16] VITALS: RESP 18
[2021-11-08] MEDS ORDERED: BUTALB/APAP/CAFF 50-325-40MG TAB PO STA (16:42)
[2021-11-08 18:14] VITALS: BP 101/65; PULSE 102; TEMP 98.1
== END 2021-11-08 18:17 | disposition home or self-care (01) ==
LOC: EC 14:56
DX: G43.909 Migraine, unspecified, not intractable, without status migrainosus (principal); J45.909 Unspecified asthma, uncomplicated; E11.9 Type 2 diabetes mellitus without complications; F17.209 Nicotine dependence, unspecified, with unspecified nicotine-induced disorders; Z79.84 Long term (current) use of oral hypoglycemic drugs; Z91.030 Bee allergy status; Z88.8 Allergy status to other drugs, medicaments and biological substances; Z91.040 Latex allergy status; Z91.018 Allergy to other foods; Z88.6 Allergy status to analgesic agent; Z91.038 Other insect allergy status; Z88.2 Allergy status to sulfonamides; Z88.0 Allergy status to penicillin
CPT/HCPCS: 99283; 96374; 96375; J1200; J2765; J1885

== ENCOUNTER 2021-11-11 21:13 | Emergency (ER) | payer OTHER ==
[2021-11-11 21:17] VITALS: BP 115/81; PULSE 105; RESP 18; TEMP 98.2
[2021-11-11] MEDS ORDERED: HYDROmorphone 0.5 MG/0.5 ML SYRINGE IVP STA (21:55)
[2021-11-11] MEDS ORDERED: ONDANSETRON 4 MG/2 ML VIAL IVP STA (21:55)
[2021-11-11] MEDS ORDERED: ONDANSETRON ODT 4 MG TAB PO STA (22:13)
[2021-11-11] MEDS ORDERED: HYDROmorphone 1 MG/ML 1 ML SYRINGE IM STA (22:13)
[2021-11-11] MEDS ORDERED: KETOROLAC 15 MG/ML 1 ML VIAL IM STA (23:38)
--- NOTE | 2021-11-11 23:58 | ED ---
General Adult HPI - General Chief complaint: Abdominal Pain Stated complaint: Abd pain Time Seen by Provider: 11/11/21 21:21 Source: patient, RN notes reviewed Mode of arrival: ambulatory Limitations: no limitations - History of Present Illness Initial comments: 31-year-old female presents to the emergency Department with complaints of left- sided abdominal pain. Patient states her pain began yesterday and has worsened throughout the day today. Complains of mild nausea. No aggravating or alleviating factors. Did not take anything to treat her discomfort prior to arrival. Patient is well-known to this department and has chronic abdominal pain. Denies fever, chills, headache, chest pain, shortness of breath, vomiting, diarrhea, constipation, and dysuria. - Related Data Home Medications Medication Instructions Recorded Confirmed Fenofibrate [Lofibra] 160 mg PO HS 07/02/21 09/19/21 metFORMIN HCL 500 mg PO BID-W/MEALS 07/02/21 09/19/21 ARIPiprazole IM SYRINGE [Abilify 400 mg IM Q30D 07/28/21 09/19/21 Maintena Syringe] Acetaminophen Tab [Tylenol] 1,000 mg PO Q6H PRN 07/28/21 09/19/21 Desvenlafaxine [Desvenlafaxine ER] 50 mg PO DAILY 07/28/21 09/19/21 QUEtiapine [SEROquel] 400 mg PO HS 07/28/21 09/19/21 busPIRone HCL 15 mg PO QID 07/28/21 09/19/21 traZODone HCL [Desyrel] 300 mg PO HS 07/28/21 09/19/21 Hyoscyamine Sulfate [Hyoscyamine 0.125 mg SL QID PRN 09/19/21 09/19/21 Sulfate SL] Previous Rx's Medication Instructions Recorded Ondansetron Odt [Zofran Odt] 4 mg PO Q8HR PRN #12 tab 09/01/21 Allergies Allergy/AdvReac Type Severity Reaction Status Date / Time bee pollen Allergy Severe Anaphylaxis Verified 11/11/21 21:17 haloperidol [From Haldol] Allergy Severe QUIT Verified 11/11/21 21:17 BREATHING haloperidol lactate Allergy Severe QUIT Verified 11/11/21 21:17 [From Haldol] BREATHING latex Allergy Severe RASH-THROAT Verified 11/11/21 21:17 CLOSES [place] Allergy Anaphylaxis Verified 11/11/21 21:17 coconut Allergy Anaphylaxis Verified 11/11/21 21:17 morphine Allergy Rash/Hives Verified 11/11/21 21:17 pineapple Allergy Anaphylaxis Verified 11/11/21 21:17 prednisone Allergy THROAT Verified 11/11/21 21:17 SWELLS spider venom Allergy Swelling Verified 11/11/21 21:17 Sulfa (Sulfonamide Allergy THROAT Verified 11/11/21 21:17 Antibiotics) SWELLS venom-wasp Allergy Swelling Verified 11/11/21 21:17 venom-wasp protein Allergy Swelling Verified 11/11/21 21:17 promethazine HCl AdvReac Severe Nausea & Verified 11/11/21 21:17 [From Phenergan] Vomiting tramadol AdvReac Severe Nausea & Verified 11/11/21 21:17 Vomiting amoxicillin AdvReac Nausea & Verified 11/11/21 21:17 Vomiting ANTS AdvReac Mild Anaphylaxis Uncoded 11/11/21 21:17 Review of Systems ROS Statement: Those systems with pertinent positive or pertinent negative responses have been documented in the HPI. ROS Other: All systems not noted in ROS Statement are negative. Past Medical History Past Medical History: Asthma, Diabetes Mellitus, GERD/Reflux Additional Past Medical History / Comment(s): migraines, degenerative disk disease, endometriosis, lupus, pancreatitis, DM2- diet controlled History of Any Multi-Drug Resistant Organisms: None Reported Past Surgical History: Orthopedic Surgery Additional Past Surgical History / Comment(s): laparoscopc surgery for endometriosis, cyst removed from left foot, EGD, Past Anesthesia/Blood Transfusion Reactions: Previous Problems w/ Anesthesia Additional Past Anesthesia/Blood Transfusion Reaction / Comment(s): hard to wake up for 48-72 hours after laparoscopic surgery-was in hosp. for 3 days Past Psychological History: Anxiety, Depression, PTSD Smoking Status: Vaper Past Alcohol Use History: None Reported Past Drug Use History: None Reported - Past Family History Mother Family Medical History: No Reported History Additional Family Medical History / Comment(s): hx migraines Father Family Medical History: Coronary Artery Disease (CAD), Hypertension Additional Family Medical History / Comment(s): ddd, alcoholism & drug use General Exam Limitations: no limitations (Well-developed, well-nourished female in no acute distress. Initial temperature 98.2, pulse 105, respirations 18, blood pressure 115/81, pulse ox 98% on room air.) General appearance: alert, in no apparent distress ENT exam: Present: normal exam, normal oropharynx, mucous membranes moist Respiratory exam: Present: normal lung sounds bilaterally. Absent: respiratory distress, wheezes, rales, rhonchi, stridor Cardiovascular Exam: Present: regular rate, normal rhythm, normal heart sounds. Absent: systolic murmur, diastolic murmur, rubs, gallop, clicks GI/Abdominal exam: Present: soft, tenderness (nonlocalized left sided abdominal tenderness upon palpation), normal bowel sounds. Absent: distended, guarding, rebound, rigid Back exam: Absent: CVA tenderness (R), CVA tenderness (L) Neurological exam: Present: alert, oriented X3, CN II-XII intact Psychiatric exam: Present: flat affect Course Vital Signs 11/11/21 21:14 Temperature 98.2 F Pulse Rate 105 H Respiratory 18 Rate Blood Pressure 115/81 - Reevaluation(s) Reevaluation #1: 11/11/21 23:55 Tolerating oral intake without difficulty. Pain is improved. Patient will be discharged home to follow up with her PCP. Medical Decision Making - Medical Decision Making This is a 31-year-old female who is well-known to this department presents here with complaints of left-sided abdominal pain. Upon exam, patient is well- appearing and in no acute distress. Physical exam findings are overall unremarkable with the exception of mild nonlocalized left-sided abdominal tenderness upon palpation. Due to difficulty obtaining an IV access. Pain medication was given IM with improvement. Urinalysis was obtained and is is not concerning for infection or dehydration. She is implored to follow up with primary care for further evaluation and treatment. Appropriate return parameters were discussed in detail. Patient does verbalize understanding and agrees with this plan. Attending: Christina - Lab Data Lab Results 11/11/21 Range/Units 23:36 Urine Color Light Yellow Urine Appearance Clear (Clear) Urine pH 6.0 (5.0-8.0) Ur Specific [place] 1.040 H (1.001-1.035) Urine Protein Negative (Negative) Urine Glucose (UA) 4+ H (Negative) Urine Ketones Negative (Negative) Urine Blood Large H (Negative) Urine Nitrite Negative (Negative) Urine Bilirubin Negative (Negative) Urine Urobilinogen <2.0 (<2.0) mg/dL Ur Leukocyte Esterase Small H (Negative) Urine RBC 7 H (0-5) /hpf Urine WBC 20 H (0-5) /hpf Ur Squamous Epith Cells 2 (0-4) /hpf Urine Bacteria Rare H (None) /hpf Disposition Clinical Impression: Abdominal pain Disposition: HOME SELF-CARE Condition: Stable Instructions (If sedation given, give patient instructions): Abdominal Pain (ED) Additional Instructions: Continue taking your home medications as prescribed. Increase your intake of fluid. Follow-up with your PCP for a recheck tomorrow. Return to the emergency department if you develop a fever, inability to tolerate oral intake, or any other concerning symptoms. Is patient prescribed a controlled substance at d/c from ED?: No Referrals: Isi Carolina MD [Primary Care Provider] - 1-2 days
[2021-11-12 00:09] LABS: Appearance,Urine Clear (Clear); Bacteria,Urine Rare /hpf; Bilirubin,Urine Negative (Negative); Blood,Urine Large (Negative); Color,Urine Light Yellow; Glucose,Urine (UA) 4+ (Negative); Ketones,Urine Negative (Negative); Leukocyte Esterase,Urine Small (Negative); Nitrite,Urine Negative (Negative); Protein,Urine Negative (Negative); RBC,Urine 7 /hpf (0-5); Squamous Epithelial Cell,Urine 2 /hpf (0-4); Urobilinogen,Urine <2.0 mg/dL (<2.0); WBC,Urine 20 /hpf (0-5)
== END 2021-11-12 01:17 | disposition home or self-care (01) ==
LOC: EC 21:13
DX: R10.9 Unspecified abdominal pain (principal); J45.909 Unspecified asthma, uncomplicated; E11.9 Type 2 diabetes mellitus without complications; F17.209 Nicotine dependence, unspecified, with unspecified nicotine-induced disorders; Z91.030 Bee allergy status; Z88.2 Allergy status to sulfonamides; Z91.040 Latex allergy status; Z91.018 Allergy to other foods; Z88.5 Allergy status to narcotic agent; Z88.8 Allergy status to other drugs, medicaments and biological substances; Z88.0 Allergy status to penicillin
CPT/HCPCS: 81001; 87086; 99284; 96372; J1170

== ENCOUNTER 2021-11-15 23:17 | Observation (INO) | payer OTHER ==
[2021-11-15] MEDS ORDERED: HYDROmorphone 1 MG/ML 1 ML SYRINGE IM STA (23:36)
--- NOTE | 2021-11-15 23:42 | ED ---
General Adult HPI - General Chief complaint: Abdominal Pain Stated complaint: Abdominal Pain Time Seen by Provider: 11/15/21 23:29 Source: patient Mode of arrival: ambulatory Limitations: no limitations - History of Present Illness Initial comments: Dictation was produced using [employer] dictation software. please excuse any grammatical, word or spelling errors. Chief Complaint: 31-year-old female presents emergency department for abdominal pain History of Present Illness: Patient is 31-year-old female she is well-known to emergency department. Patient is here today for abdominal pain. Patient is seen in emergency department multiple occasions for abdominal pain. Patient has history of opiate use disorder. This is patient's 11th visit to the emergency room in the last 4 weeks. P any fevers. She states that she has right-sided abdominal pain at the flank which is typical for her usual abdominal symptoms. The ROS documented in this emergency department record has been reviewed and confirmed by me. Those systems with pertinent positive or negative responses have been documented in the HPI. All other systems are other negative and/or noncontributory. PHYSICAL EXAM: General Impression: Alert and oriented x3, not in acute distress HEENT: Normocephalic atraumatic, extra-ocular movements intact, pupils equal and reactive to light bilaterally, mucous membranes moist. Cardiovascular: Heart regular rate and rhythm Chest: Able to complete full sentences, no retractions, no tachypnea Abdomen: abdomen soft, non-tender, non-distended, no organomegaly Musculoskeletal: Pulses present and equal in all extremities, no peripheral edema Motor: no focal deficits noted Neurological: CN II-XII grossly intact, no focal motor or sensory deficits noted Skin: Intact with no visualized rashes Psych: Normal affect and mood ED course: 31 yo female presents to the emergency for further abdominal pain. Patient is well-known to emergency department for multiple visitations for myriad of complaints. She is mostly here in the emergency department for abdominal pain. Patient similar to myself and ER staff. Patient appears to be at baseline at this time. Vital signs upon arrival shows heart rate of 158, rest of vital signs within acceptable limits. Patient related bedside at 1:00 AM. She is resting comfortably at the bedside. She does not appear to be in any acute distress. Patient still persistently tachycardic. Laboratory evaluation obtained. CBC unremarkable. Sodium was 1:30 with a potassium of 5.6. Glucose is 371. Patient has a lipase level MLVI. We attempted to have medical records from [facility] from patient's recent hospital admission however they were unable to do so. Patient apparently was recently admitted to [facility] for pancreatitis. She was admitted there for 2-3 days. She states that she was discharged stable medical condition however symptomatology return. - Related Data Home Medications Medication Instructions Recorded Confirmed Fenofibrate [Lofibra] 160 mg PO HS 07/02/21 09/19/21 metFORMIN HCL 500 mg PO BID-W/MEALS 07/02/21 09/19/21 ARIPiprazole IM SYRINGE [Abilify 400 mg IM Q30D 07/28/21 09/19/21 Maintena Syringe] Acetaminophen Tab [Tylenol] 1,000 mg PO Q6H PRN 07/28/21 09/19/21 Desvenlafaxine [Desvenlafaxine ER] 50 mg PO DAILY 07/28/21 09/19/21 QUEtiapine [SEROquel] 400 mg PO HS 07/28/21 09/19/21 busPIRone HCL 15 mg PO QID 07/28/21 09/19/21 traZODone HCL [Desyrel] 300 mg PO HS 07/28/21 09/19/21 Hyoscyamine Sulfate [Hyoscyamine 0.125 mg SL QID PRN 09/19/21 09/19/21 Sulfate SL] Previous Rx's Medication Instructions Recorded Ondansetron Odt [Zofran Odt] 4 mg PO Q8HR PRN #12 tab 09/01/21 Allergies Allergy/AdvReac Type Severity Reaction Status Date / Time bee pollen Allergy Severe Anaphylaxis Verified 11/15/21 23:30 haloperidol [From Haldol] Allergy Severe QUIT Verified 11/15/21 23:30 BREATHING haloperidol lactate Allergy Severe QUIT Verified 11/15/21 23:30 [From Haldol] BREATHING latex Allergy Severe RASH-THROAT Verified 11/15/21 23:30 CLOSES [place] Allergy Anaphylaxis Verified 11/15/21 23:30 coconut Allergy Anaphylaxis Verified 11/15/21 23:30 morphine Allergy Rash/Hives Verified 11/15/21 23:30 pineapple Allergy Anaphylaxis Verified 11/15/21 23:30 prednisone Allergy THROAT Verified 11/15/21 23:30 SWELLS spider venom Allergy Swelling Verified 11/15/21 23:30 Sulfa (Sulfonamide Allergy THROAT Verified 11/15/21 23:30 Antibiotics) SWELLS venom-wasp Allergy Swelling Verified 11/15/21 23:30 venom-wasp protein Allergy Swelling Verified 11/15/21 23:30 promethazine HCl AdvReac Severe Nausea & Verified 11/15/21 23:30 [From Phenergan] Vomiting tramadol AdvReac Severe Nausea & Verified 11/15/21 23:30 Vomiting amoxicillin AdvReac Nausea & Verified 11/15/21 23:30 Vomiting ANTS AdvReac Mild Anaphylaxis Uncoded 11/15/21 23:30 Review of Systems ROS Statement: Those systems with pertinent positive or pertinent negative responses have been documented in the HPI. ROS Other: All systems not noted in ROS Statement are negative. Past Medical History Past Medical History: Asthma, Diabetes Mellitus, GERD/Reflux Additional Past Medical History / Comment(s): migraines, degenerative disk disease, endometriosis, lupus, pancreatitis, DM2- diet controlled History of Any Multi-Drug Resistant Organisms: None Reported Past Surgical History: Orthopedic Surgery Additional Past Surgical History / Comment(s): laparoscopc surgery for endometriosis, cyst removed from left foot, EGD, Past Anesthesia/Blood Transfusion Reactions: Previous Problems w/ Anesthesia Additional Past Anesthesia/Blood Transfusion Reaction / Comment(s): hard to wake up for 48-72 hours after laparoscopic surgery-was in hosp. for 3 days Past Psychological History: Anxiety, Depression, PTSD Smoking Status: Vaper Past Alcohol Use History: None Reported Past Drug Use History: None Reported - Past Family History Mother Family Medical History: No Reported History Additional Family Medical History / Comment(s): hx migraines Father Family Medical History: Coronary Artery Disease (CAD), Hypertension Additional Family Medical History / Comment(s): ddd, alcoholism & drug use General Exam Limitations: no limitations Course Vital Signs 11/15/21 11/15/21 23:27 23:56 Temperature 98.9 F Pulse Rate 158 H 126 H Respiratory 18 16 Rate Blood Pressure 123/81 123/79 O2 Sat by Pulse 97 95 Oximetry Medical Decision Making - Lab Data Result diagrams: 11/16/21 01:38 11/16/21 01:38 Lab Results 11/16/21 11/16/21 Range/Units 01:38 01:38 WBC 6.6 (3.8-10.6) k/uL RBC 4.46 (3.80-5.40) m/uL Hgb 12.6 (11.4-16.0) gm/dL Hct 38.3 (34.0-46.0) % MCV 86.0 (80.0-100.0) fL MCH 28.2 (25.0-35.0) pg MCHC 32.8 (31.0-37.0) g/dL RDW 14.4 (11.5-15.5) % Plt Count 294 (150-450) k/uL MPV 7.7 Neutrophils % 64 % Lymphocytes % 28 % Monocytes % 4 % Eosinophils % 3 % Basophils % 1 % Neutrophils # 4.2 (1.3-7.7) k/uL Lymphocytes # 1.8 (1.0-4.8) k/uL Monocytes # 0.3 (0-1.0) k/uL Eosinophils # 0.2 (0-0.7) k/uL Basophils # 0.1 (0-0.2) k/uL Sodium 130 L (137-145) mmol/L Potassium 5.6 H (3.5-5.1) mmol/L Chloride 100 (98-107) mmol/L Carbon Dioxide 20 L (22-30) mmol/L Anion Gap 10 mmol/L BUN 8 (7-17) mg/dL Creatinine 0.49 L (0.52-1.04) mg/dL Est GFR (CKD-EPI)AfAm >90 (>60 ml/min/1.73 sqM) Est GFR (CKD-EPI)NonAf >90 (>60 ml/min/1.73 sqM) Glucose 371 H (74-99) mg/dL Calcium 10.2 (8.4-10.2) mg/dL Total Bilirubin 0.8 (0.2-1.3) mg/dL AST 45 H (14-36) U/L ALT 11 (4-34) U/L Alkaline Phosphatase 86 (38-126) U/L Total Protein 7.6 (6.3-8.2) g/dL Albumin 3.9 (3.5-5.0) g/dL Lipase 1056 H (23-300) U/L Disposition Clinical Impression: Pancreatitis Disposition: ADMITTED IP TO THIS HOSP Condition: Fair Referrals: Isi Carolina MD [Primary Care Provider] - 1-2 days Decision Time: 03:02
[2021-11-16 01:46] LABS: Basophils # (A) 0.1 k/uL (0-0.2); Basophils % (A) 1 %; Eosinophils # (A) 0.2 k/uL (0-0.7); Eosinophils % (A) 3 %; HCT 38.3 % (34.0-46.0); HGB 12.6 gm/dL (11.4-16.0); Lymphocytes # (A) 1.8 k/uL (1.0-4.8); Lymphocytes % (A) 28 %; MCH 28.2 pg (25.0-35.0); MCHC 32.8 g/dL (31.0-37.0); Mean Platelet Volume 7.7; Monocytes # (A) 0.3 k/uL (0-1.0); Monocytes % (A) 4 %; Neutrophils # (A) 4.2 k/uL (1.3-7.7); Neutrophils % (A) 64 %; Platelet Count 294 k/uL (150-450); RBC 4.46 m/uL (3.80-5.40); RDW 14.4 % (11.5-15.5); WBC 6.6 k/uL (3.8-10.6)
[2021-11-16 01:55] LABS: ALT 11 U/L (4-34); AST 45 U/L (14-36); African American GFR (CKD) >90 (>60 ml/min/1.73 sqM); Albumin 3.9 g/dL (3.5-5.0); Alkaline Phosphatase 86 U/L (38-126); Anion Gap 10 mmol/L; Blood Urea Nitrogen 8 mg/dL (7-17); Calcium 10.2 mg/dL (8.4-10.2); Carbon Dioxide 20 mmol/L (22-30); Chloride 100 mmol/L (98-107); Glucose 371 mg/dL (74-99); Lipase 1056 U/L (23-300); Non-African American GFR(CKD) >90 (>60 ml/min/1.73 sqM); Potassium 5.6 mmol/L (3.5-5.1); Sodium 130 mmol/L (137-145); Total Bilirubin 0.8 mg/dL (0.2-1.3); Total Protein 7.6 g/dL (6.3-8.2)
[2021-11-16] MEDS ORDERED: ACETAMINOPHEN TAB 325 MG TAB PO PRN (02:59)
[2021-11-16] MEDS ORDERED: ONDANSETRON 4 MG/2 ML VIAL IVP PRN (02:59)
[2021-11-16] MEDS ORDERED: NALOXONE 0.4 MG/ML 1 ML VIAL IV PRN (02:59)
[2021-11-16] MEDS: SODIUM CHLORIDE 0.9% 1,000 ML IV SCH ×2 (04:03→14:19)
[2021-11-16] MEDS: PANTOPRAZOLE 40 MG/10 ML VIAL IVP SCH (14:17)
[2021-11-16] MEDS: HYDROmorphone 0.5 MG/0.5 ML SYRINGE IVP PRN ×3 (14:17→21:59)
--- NOTE | 2021-11-16 14:44 | P.HPIM ---
History of Present Illness H&P Date: 11/16/21 Chief Complaint: Abdominal pain 31-year-old female she is well-known to emergency department. Patient is here today for abdominal pain. Patient is seen in emergency department multiple occasions for abdominal pain. Patient has history of opiate use disorder. This is patient's 11th visit to the emergency room in the last 4 weeks. P any fevers. She states that she has right-sided abdominal pain at the flank which is typical for her usual abdominal symptoms. Workup in ED reveals WBC of 6.6, hemoglobin 12.6 and platelet count of 294, sodium 1:30, potassium 5.6, BUN/creatinine of 8/0.49 and blood glucose of 371; lipase elevated at 1056 with AST of 45 Review of Systems REVIEW OF SYSTEMS: CONSTITUTIONAL: No fever, no malaise, no fatigue. HEENT: No recent visual problems or hearing problems. Denied any sore throat. CARDIOVASCULAR: No chest pain, orthopnea, PND, no palpitations, no syncope. PULMONARY: No shortness of breath, no cough, no hemoptysis. GASTROINTESTINAL: No diarrhea, no nausea, no vomiting, no abdominal pain. NEUROLOGICAL: No headaches, no weakness, no numbness. HEMATOLOGICAL: Denies any bleeding or petechiae. GENITOURINARY: Denies any burning micturition, frequency, or urgency. MUSCULOSKELETAL/RHEUMATOLOGICAL: Denies any joint pain, swelling, or any muscle pain. ENDOCRINE: Denies any polyuria or polydipsia. The rest of the 14-point review of systems is negative. Past Medical History Past Medical History: Asthma, Diabetes Mellitus, GERD/Reflux Additional Past Medical History / Comment(s): migraines, degenerative disk disease, endometriosis, lupus, pancreatitis, DM2- diet controlled History of Any Multi-Drug Resistant Organisms: None Reported Past Surgical History: Cholecystectomy, Orthopedic Surgery Additional Past Surgical History / Comment(s): laparoscopc surgery for endometriosis, cyst removed from left foot, EGD, Past Anesthesia/Blood Transfusion Reactions: Previous Problems w/ Anesthesia Additional Past Anesthesia/Blood Transfusion Reaction / Comment(s): hard to wake up for 48-72 hours after laparoscopic surgery-was in hosp. for 3 days Past Psychological History: Anxiety, Depression, PTSD Additional Psychological History / Comment(s): Night terrors. Pt is independent, drives. She goes to [facility]. patient states she has borderline personality disorder Smoking Status: Vaper Past Alcohol Use History: None Reported Additional Past Alcohol Use History / Comment(s): Pt states she used to vape. Past Drug Use History: None Reported Additional Drug Use History / Comment(s): Pt states she uses CBD gummies. - Past Family History Mother Family Medical History: No Reported History Additional Family Medical History / Comment(s): hx migraines Father Family Medical History: Coronary Artery Disease (CAD), Hypertension Additional Family Medical History / Comment(s): ddd, alcoholism & drug use Medications and Allergies Home Medications Medication Instructions Recorded Confirmed Type ARIPiprazole IM SYRINGE [Abilify 400 mg IM Q30D 07/28/21 11/16/21 History Maintena Syringe] Ibuprofen [Motrin] 800 mg PO Q8H PRN 11/16/21 11/16/21 History Omeprazole 20 mg PO DAILY 11/16/21 11/16/21 History Prochlorperazine [Compazine] 5 mg PO Q12H PRN 11/16/21 11/16/21 History Propranolol HCl 20 mg PO DAILY 11/16/21 11/16/21 History QUEtiapine FUMARATE [SEROquel XR] 600 mg PO HS 11/16/21 11/16/21 History sitaGLIPtin [Januvia] 50 mg PO DAILY 11/16/21 11/16/21 History Allergies Allergy/AdvReac Type Severity Reaction Status Date / Time bee pollen Allergy Severe Anaphylaxis Verified 11/16/21 12:15 haloperidol [From Haldol] Allergy Severe QUIT Verified 11/16/21 12:15 BREATHING haloperidol lactate Allergy Severe QUIT Verified 11/16/21 12:15 [From Haldol] BREATHING latex Allergy Severe RASH-THROAT Verified 11/16/21 12:15 CLOSES [place] Allergy Anaphylaxis Verified 11/16/21 12:15 coconut Allergy Anaphylaxis Verified 11/16/21 12:15 morphine Allergy Rash/Hives Verified 11/16/21 12:15 pineapple Allergy Anaphylaxis Verified 11/16/21 12:15 prednisone Allergy THROAT Verified 11/16/21 12:15 SWELLS spider venom Allergy Swelling Verified 11/16/21 12:15 Sulfa (Sulfonamide Allergy THROAT Verified 11/16/21 12:15 Antibiotics) SWELLS venom-wasp Allergy Swelling Verified 11/16/21 12:15 venom-wasp protein Allergy Swelling Verified 11/16/21 12:15 promethazine HCl AdvReac Severe Nausea & Verified 11/16/21 12:15 [From Phenergan] Vomiting tramadol AdvReac Severe Nausea & Verified 11/16/21 12:15 Vomiting amoxicillin AdvReac Nausea & Verified 11/16/21 12:15 Vomiting ANTS AdvReac Mild Anaphylaxis Uncoded 11/15/21 23:30 Physical Exam Vitals: Vital Signs Temp Pulse Pulse Resp BP BP Pulse Ox 11/16/21 05:51 98.9 F 95 16 87/59 94 L 11/15/21 23:56 126 H 16 123/79 95 11/15/21 23:27 98.9 F 158 H 18 123/81 97 Intake and Output 11/15/21 11/16/21 11/16/21 22:59 06:59 14:59 Intake Total 590 Balance 590 Intake: Oral 590 Other: Weight 85.275 kg PHYSICAL EXAMINATION: GENERAL: The patient is alert and oriented x3, not in any acute distress. Well developed, well nourished. HEENT: Pupils are round and equally reacting to light. EOMI. No scleral icterus. No conjunctival pallor. Normocephalic, atraumatic. No pharyngeal erythema. No thyromegaly. CARDIOVASCULAR: S1 and S2 present. No murmurs, rubs, or gallops. PULMONARY: Chest is clear to auscultation, no wheezing or crackles. ABDOMEN: Soft, nontender, nondistended, normoactive bowel sounds. No palpable organomegaly. MUSCULOSKELETAL: No joint swelling or deformity. EXTREMITIES: No cyanosis, clubbing, or pedal edema. NEUROLOGICAL: Gross neurological examination did not reveal any focal deficits. SKIN: No rashes. Results CBC & Chem 7: 11/16/21 01:38 11/16/21 01:38 Labs: Abnormal Lab Results - Last 24 Hours (Table) 11/16/21 11/16/21 Range/Units 01:38 06:44 Sodium 130 L (137-145) mmol/L Potassium 5.6 H (3.5-5.1) mmol/L Carbon Dioxide 20 L (22-30) mmol/L Creatinine 0.49 L (0.52-1.04) mg/dL Glucose 371 H (74-99) mg/dL AST 45 H (14-36) U/L Lipase 1056 H 888 H (23-300) U/L Thrombosis Risk Factor Assmnt - Choose All That Apply Any of the Below Risk Factors Present?: Yes Each Factor Represents 1 point: Obesity (BMI >25) Thrombosis Risk Factor Assessment Total Risk Factor Score: 1 Thrombosis Risk Factor Assessment Level: Low Risk Assessment and Plan Assessment: 1. Acute pancreatitis - Patient will be admitted for IV fluid hydration and pain control; normal saline at a rate of 1 25 mL an hour; Dilaudid 0.5 mg every 4 hours when necessary - Protonix 40 mg IV daily; we will keep patient nothing by mouth with plans to start with clear liquid diet once improves symptomatically 2. Hyperglycemia/diabetes mellitus; patient takes 22. Home which has been placed on hold; monitor Accu-Cheks every before meals and at bedtime with i nsulin sliding scale 3. Hyponatremia/hyperkalemia; patient has been placed on IV fluids in form of normal saline; we will monitor renal function and electrolytes and make further adjustments accordingly 4. Asthma; not in exacerbation 5. Hyperlipidemia; currently not on any statin therapy 6. Anxiety/depression/PTSD; patient takes Abilify 400 mg IM every 30 days which will be resumed outpatient; Seroquel XL 600 mg daily at bedtime DVT prophylaxis; SCDs CODE STATUS; full code
[2021-11-16] MEDS: QUEtiapine 100 MG TAB PO SCH (20:41)
[2021-11-16 20:59] VITALS: TEMP 98.7
[2021-11-17 03:44] LABS: African American GFR (CKD) >90 (>60 ml/min/1.73 sqM); Anion Gap 7 mmol/L; Calcium 9.7 mg/dL (8.4-10.2); Carbon Dioxide 21 mmol/L (22-30); Chloride 106 mmol/L (98-107); Glucose 246 mg/dL (74-99); Lipase 522 U/L (23-300); Non-African American GFR(CKD) >90 (>60 ml/min/1.73 sqM); Potassium 5.2 mmol/L (3.5-5.1); Sodium 134 mmol/L (137-145)
[2021-11-17 03:54] LABS: Blood Urea Nitrogen 5 mg/dL (7-17)
[2021-11-17] MEDS: HYDROmorphone 0.5 MG/0.5 ML SYRINGE IVP PRN ×2 (04:15→08:19)
[2021-11-17 05:14] VITALS: BP 111/75; PULSE 105; RESP 20
[2021-11-17] MEDS: SODIUM CHLORIDE 0.9% 1,000 ML IV SCH (08:19)
[2021-11-17] MEDS: PANTOPRAZOLE 40 MG/10 ML VIAL IVP SCH (08:19)
[2021-11-17] MEDS: QUEtiapine 100 MG TAB PO SCH (08:19)
[2021-11-17] MEDS ORDERED: PROPRANOLOL 20 MG TAB PO SCH (09:00)
== END 2021-11-17 11:07 | disposition home or self-care (01) ==
LOC: EC 23:17 → 5NMEDONC 11-16 02:59
PROVIDERS: ADMIT Hospitalist; ATTEND Hospitalist
DX: K85.90 Acute pancreatitis without necrosis or infection, unspecified (principal); E11.65 Type 2 diabetes mellitus with hyperglycemia; E87.1 Hypo-osmolality and hyponatremia; E87.5 Hyperkalemia; J45.909 Unspecified asthma, uncomplicated; E78.5 Hyperlipidemia, unspecified; K21.9 Gastro-esophageal reflux disease without esophagitis; G43.909 Migraine, unspecified, not intractable, without status migrainosus; F32.A Depression, unspecified; F43.10 Post-traumatic stress disorder, unspecified; F41.9 Anxiety disorder, unspecified; F51.4 Sleep terrors [night terrors]; F60.3 Borderline personality disorder; E66.9 Obesity, unspecified; Z68.32 Body mass index [BMI] 32.0-32.9, adult; Z79.84 Long term (current) use of oral hypoglycemic drugs; Z79.899 Other long term (current) drug therapy; Z91.030 Bee allergy status; Z91.038 Other insect allergy status; Z91.040 Latex allergy status; Z88.5 Allergy status to narcotic agent; Z88.0 Allergy status to penicillin; Z88.2 Allergy status to sulfonamides; Z88.8 Allergy status to other drugs, medicaments and biological substances; Z91.018 Allergy to other foods; Z90.49 Acquired absence of other specified parts of digestive tract; Z87.898 Personal history of other specified conditions; Z87.42 Personal history of other diseases of the female genital tract; Z82.49 Family history of ischemic heart disease and other diseases of the circulatory system; Z82.0 Family history of epilepsy and other diseases of the nervous system; Z81.1 Family history of alcohol abuse and dependence; Z81.2 Family history of tobacco abuse and dependence
CPT/HCPCS: 96376 ×2; 96361 ×2; 96374; 96375; 96372; 99285; 36415; 80053; 80048; 83690 ×2; 85025; G0378 ×2; J1170 ×3; C9113 ×2

== ENCOUNTER 2021-11-26 23:19 | Emergency (ER) | payer OTHER ==
[2021-11-26 23:25] VITALS: TEMP 97.8
[2021-11-27] MEDS ORDERED: MORPHINE SULFATE 4 MG/ML SYRINGE IV STA ×2 (00:12→02:09)
[2021-11-27] MEDS ORDERED: SODIUM CHLORIDE 0.9% 1,000 ML IV STA (00:12)
[2021-11-27] MEDS ORDERED: ONDANSETRON 4 MG/2 ML VIAL IVP STA (00:12)
[2021-11-27] MEDS ORDERED: KETOROLAC 15 MG/ML 1 ML VIAL IVP STA (00:12)
--- NOTE | 2021-11-27 00:35 | ED ---
General Adult HPI - General Chief complaint: Headache Stated complaint: Migraine, Abd Pain Time Seen by Provider: 11/27/21 00:02 Source: patient, RN notes reviewed Mode of arrival: ambulatory Limitations: no limitations - History of Present Illness Initial comments: This is a 31-year-old female who presents to the emergency room complaining of recurrent chronic headaches and recurrent chronic pancreatitis. Patient was just admitted to another facility for 8 days and discharged 2 days ago. Patient complaining of nausea and vomiting as well. No headache, no fever or chills, no changes in vision or hearing, no sore throat or difficulty with speech, no neck pain, no chest pain or shortness of breath, no changes in urination or bowel movements, no numbness or tingling, no extremity pain, no skin rashes or lesions. Past medical, surgical, social, and family history reviewed. - Related Data Home Medications Medication Instructions Recorded Confirmed ARIPiprazole IM SYRINGE [Abilify 400 mg IM Q30D 07/28/21 11/16/21 Maintena Syringe] Ibuprofen [Motrin] 800 mg PO Q8H PRN 11/16/21 11/16/21 Omeprazole 20 mg PO DAILY 11/16/21 11/16/21 Prochlorperazine [Compazine] 5 mg PO Q12H PRN 11/16/21 11/16/21 Propranolol HCl 20 mg PO DAILY 11/16/21 11/16/21 QUEtiapine FUMARATE [SEROquel XR] 600 mg PO HS 11/16/21 11/16/21 sitaGLIPtin [Januvia] 50 mg PO DAILY 11/16/21 11/16/21 Previous Rx's Medication Instructions Recorded Sucralfate [Carafate] 1 gm PO BID 10 Days #200 ml 11/27/21 Allergies Allergy/AdvReac Type Severity Reaction Status Date / Time bee pollen Allergy Severe Anaphylaxis Verified 11/26/21 23:22 haloperidol [From Haldol] Allergy Severe QUIT Verified 11/26/21 23:22 BREATHING haloperidol lactate Allergy Severe QUIT Verified 11/26/21 23:22 [From Haldol] BREATHING latex Allergy Severe RASH-THROAT Verified 11/26/21 23:22 CLOSES [place] Allergy Anaphylaxis Verified 11/26/21 23:22 coconut Allergy Anaphylaxis Verified 11/26/21 23:22 morphine Allergy Rash/Hives Verified 11/26/21 23:22 pineapple Allergy Anaphylaxis Verified 11/26/21 23:22 prednisone Allergy THROAT Verified 11/26/21 23:22 SWELLS spider venom Allergy Swelling Verified 11/26/21 23:22 Sulfa (Sulfonamide Allergy THROAT Verified 11/26/21 23:22 Antibiotics) SWELLS venom-wasp Allergy Swelling Verified 11/26/21 23:22 venom-wasp protein Allergy Swelling Verified 11/26/21 23:22 promethazine HCl AdvReac Severe Nausea & Verified 11/26/21 23:22 [From Phenergan] Vomiting tramadol AdvReac Severe Nausea & Verified 11/26/21 23:22 Vomiting amoxicillin AdvReac Nausea & Verified 11/26/21 23:22 Vomiting ANTS AdvReac Mild Anaphylaxis Uncoded 11/26/21 23:22 Review of Systems ROS Statement: Those systems with pertinent positive or pertinent negative responses have been documented in the HPI. ROS Other: All systems not noted in ROS Statement are negative. Past Medical History Past Medical History: Asthma, Diabetes Mellitus, GERD/Reflux Additional Past Medical History / Comment(s): migraines, degenerative disk di sease, endometriosis, lupus, pancreatitis, DM2- diet controlled History of Any Multi-Drug Resistant Organisms: None Reported Past Surgical History: Cholecystectomy, Orthopedic Surgery Additional Past Surgical History / Comment(s): laparoscopc surgery for endometriosis, cyst removed from left foot, EGD, Past Anesthesia/Blood Transfusion Reactions: Previous Problems w/ Anesthesia Additional Past Anesthesia/Blood Transfusion Reaction / Comment(s): hard to wake up for 48-72 hours after laparoscopic surgery-was in hosp. for 3 days Past Psychological History: Anxiety, Depression, PTSD Smoking Status: Vaper Past Alcohol Use History: None Reported Past Drug Use History: None Reported - Past Family History Mother Family Medical History: No Reported History Additional Family Medical History / Comment(s): hx migraines Father Family Medical History: Coronary Artery Disease (CAD), Hypertension Additional Family Medical History / Comment(s): ddd, alcoholism & drug use General Exam Limitations: no limitations General appearance: alert, in no apparent distress Head exam: Present: atraumatic, normocephalic, normal inspection Eye exam: Present: normal appearance, PERRL, EOMI. Absent: scleral icterus, conjunctival injection, periorbital swelling ENT exam: Present: normal exam, mucous membranes moist Neck exam: Present: normal inspection, full ROM. Absent: tenderness, meningismus, lymphadenopathy Respiratory exam: Present: normal lung sounds bilaterally. Absent: respiratory distress, wheezes, rales, rhonchi, stridor Cardiovascular Exam: Present: regular rate, normal rhythm, normal heart sounds. Absent: systolic murmur, diastolic murmur, rubs, gallop, clicks GI/Abdominal exam: Present: soft, tenderness (General tenderness), normal bowel sounds. Absent: distended, guarding, rebound, rigid Extremities exam: Present: normal inspection, full ROM, normal capillary refill. Absent: tenderness, pedal edema, joint swelling, calf tenderness Back exam: Present: normal inspection Neurological exam: Present: alert, oriented X3, CN II-XII intact Psychiatric exam: Present: normal affect, normal mood Skin exam: Present: warm, dry, intact, normal color. Absent: rash Course Vital Signs 11/26/21 11/27/21 23:22 02:58 Temperature 97.8 F Pulse Rate 102 H 99 Respiratory 16 20 Rate Blood Pressure 122/88 122/97 O2 Sat by Pulse 98 97 Oximetry - Reevaluation(s) Reevaluation #1: 11/27/21 02:11 Medical record is reviewed Symptoms are improved here in the emergency department Patient is informed of results and questions answered Patient in no distress Reevaluation #2: 11/27/21 03:22 Medical record is reviewed Symptoms are improved here in the emergency department Patient is informed of results and questions answered Patient in no distress Medical Decision Making - Lab Data Result diagrams: 11/27/21 00:58 11/27/21 00:58 Lab Results 11/27/21 11/27/21 Range/Units 00:58 00:58 WBC 5.0 (3.8-10.6) k/uL RBC 4.36 (3.80-5.40) m/uL Hgb 12.4 (11.4-16.0) gm/dL Hct 38.2 (34.0-46.0) % MCV 87.6 (80.0-100.0) fL MCH 28.5 (25.0-35.0) pg MCHC 32.5 (31.0-37.0) g/dL RDW 15.4 (11.5-15.5) % Plt Count 244 (150-450) k/uL MPV 8.6 Neutrophils % 48 % Lymphocytes % 42 % Monocytes % 5 % Eosinophils % 2 % Basophils % 1 % Neutrophils # 2.4 (1.3-7.7) k/uL Lymphocytes # 2.1 (1.0-4.8) k/uL Monocytes # 0.2 (0-1.0) k/uL Eosinophils # 0.1 (0-0.7) k/uL Basophils # 0.0 (0-0.2) k/uL Sodium 138 (137-145) mmol/L Potassium 4.1 (3.5-5.1) mmol/L Chloride 104 (98-107) mmol/L Carbon Dioxide 20 L (22-30) mmol/L Anion Gap 14 mmol/L BUN 7 (7-17) mg/dL Creatinine 0.66 (0.52-1.04) mg/dL Est GFR (CKD-EPI)AfAm >90 (>60 ml/min/1.73 sqM) Est GFR (CKD-EPI)NonAf >90 (>60 ml/min/1.73 sqM) Glucose 256 H (74-99) mg/dL Calcium 10.8 H (8.4-10.2) mg/dL Total Bilirubin 0.4 (0.2-1.3) mg/dL AST 24 (14-36) U/L ALT 18 (4-34) U/L Alkaline Phosphatase 70 (38-126) U/L Total Protein 7.3 (6.3-8.2) g/dL Albumin 4.2 (3.5-5.0) g/dL Lipase 717 H (23-300) U/L Disposition Clinical Impression: Chronic pancreatitis, Migraine headache, Chronic pain Disposition: HOME SELF-CARE Condition: Stable Instructions (If sedation given, give patient instructions): Migraine Headache (ED), Pancreatitis (ED), Clear Liquid Diet (ED), Chronic Pain (ED) Additional Instructions: Adhere to a clear liquid diet for the next 24 hours. Follow-up with your regular physician as directed. Return to the ER immediately if any symptoms worsen, new symptoms arise, or any other problems develop. Prescriptions: Sucralfate [Carafate] 1 gm PO BID 10 Days #200 ml Is patient prescribed a controlled substance at d/c from ED?: No Referrals: Isi Carolina MD [Primary Care Provider] - 11/27/21 Time of Disposition: 03:21
[2021-11-27 01:12] LABS: Basophils % (A) 1 %; Eosinophils # (A) 0.1 k/uL (0-0.7); Eosinophils % (A) 2 %; HCT 38.2 % (34.0-46.0); HGB 12.4 gm/dL (11.4-16.0); Lymphocytes # (A) 2.1 k/uL (1.0-4.8); Lymphocytes % (A) 42 %; MCH 28.5 pg (25.0-35.0); MCHC 32.5 g/dL (31.0-37.0); MCV 87.6 fL (80.0-100.0); Mean Platelet Volume 8.6; Monocytes # (A) 0.2 k/uL (0-1.0); Monocytes % (A) 5 %; Neutrophils # (A) 2.4 k/uL (1.3-7.7); Neutrophils % (A) 48 %; Platelet Count 244 k/uL (150-450); RBC 4.36 m/uL (3.80-5.40); RDW 15.4 % (11.5-15.5)
[2021-11-27 01:26] LABS: ALT 18 U/L (4-34); African American GFR (CKD) >90 (>60 ml/min/1.73 sqM); Albumin 4.2 g/dL (3.5-5.0); Anion Gap 14 mmol/L; Blood Urea Nitrogen 7 mg/dL (7-17); Calcium 10.8 mg/dL (8.4-10.2); Carbon Dioxide 20 mmol/L (22-30); Chloride 104 mmol/L (98-107); Glucose 256 mg/dL (74-99); Lipase 717 U/L (23-300); Non-African American GFR(CKD) >90 (>60 ml/min/1.73 sqM); Sodium 138 mmol/L (137-145); Total Bilirubin 0.4 mg/dL (0.2-1.3); Total Protein 7.3 g/dL (6.3-8.2)
[2021-11-27 01:51] LABS: AST 24 U/L (14-36); Alkaline Phosphatase 70 U/L (38-126); Potassium 4.1 mmol/L (3.5-5.1)
[2021-11-27] MEDS ORDERED: METOCLOPRAMIDE 5 MG/ML 2 ML VIAL IVP STA (02:09)
[2021-11-27] MEDS ORDERED: diphenhydrAMINE 50 MG/ML 1 ML VIAL IVP STA (02:09)
[2021-11-27 02:58] VITALS: BP 122/97; PULSE 99; RESP 20
== END 2021-11-27 04:16 | disposition home or self-care (01) ==
LOC: EC 23:19
DX: K86.1 Other chronic pancreatitis (principal); G43.909 Migraine, unspecified, not intractable, without status migrainosus; J45.909 Unspecified asthma, uncomplicated; E11.9 Type 2 diabetes mellitus without complications; F17.290 Nicotine dependence, other tobacco product, uncomplicated; K21.9 Gastro-esophageal reflux disease without esophagitis; Z91.030 Bee allergy status; Z88.8 Allergy status to other drugs, medicaments and biological substances; Z91.040 Latex allergy status; Z91.018 Allergy to other foods; Z91.038 Other insect allergy status; Z88.2 Allergy status to sulfonamides; Z88.6 Allergy status to analgesic agent; Z88.1 Allergy status to other antibiotic agents; Z79.84 Long term (current) use of oral hypoglycemic drugs; Z79.899 Other long term (current) drug therapy
CPT/HCPCS: 36415; 80053; 83690; 85025; 99284; 96374; 96375; 96376; 96361; J2270; J1200; J2765; J2405; J1885

== ENCOUNTER 2021-12-03 13:32 | Emergency (ER) | payer OTHER ==
[2021-12-03 14:08] VITALS: TEMP 97.5
[2021-12-03] MEDS ORDERED: SODIUM CHLORIDE 0.9% 1,000 ML IV STA (16:58)
[2021-12-03] MEDS ORDERED: HYDROmorphone 0.5 MG/0.5 ML SYRINGE IVP STA (16:59)
[2021-12-03] MEDS ORDERED: METOCLOPRAMIDE 5 MG/ML 2 ML VIAL IVP STA (17:02)
[2021-12-03 18:50] LABS: Basophils % (A) 1 %; Eosinophils # (A) 0.1 k/uL (0-0.7); Eosinophils % (A) 3 %; HCT 42.9 % (34.0-46.0); HGB 13.8 gm/dL (11.4-16.0); Lymphocytes # (A) 2.1 k/uL (1.0-4.8); Lymphocytes % (A) 44 %; MCH 28.3 pg (25.0-35.0); MCHC 32.3 g/dL (31.0-37.0); MCV 87.7 fL (80.0-100.0); Mean Platelet Volume 8.6; Monocytes # (A) 0.2 k/uL (0-1.0); Monocytes % (A) 5 %; Neutrophils # (A) 2.2 k/uL (1.3-7.7); Neutrophils % (A) 46 %; Platelet Count 264 k/uL (150-450); RBC 4.89 m/uL (3.80-5.40); RDW 15.5 % (11.5-15.5); WBC 4.8 k/uL (3.8-10.6)
[2021-12-03 19:01] LABS: ALT 14 U/L (4-34); AST 17 U/L (14-36); African American GFR (CKD) >90 (>60 ml/min/1.73 sqM); Albumin 4.6 g/dL (3.5-5.0); Alkaline Phosphatase 83 U/L (38-126); Amylase 44 U/L (30-110); Anion Gap 16 mmol/L; Blood Urea Nitrogen 8 mg/dL (7-17); Calcium 11.3 mg/dL (8.4-10.2); Carbon Dioxide 20 mmol/L (22-30); Chloride 102 mmol/L (98-107); Glucose 270 mg/dL (74-99); Lipase 186 U/L (23-300); Non-African American GFR(CKD) >90 (>60 ml/min/1.73 sqM); Potassium 4.8 mmol/L (3.5-5.1); Sodium 138 mmol/L (137-145); Total Bilirubin 0.5 mg/dL (0.2-1.3); Total Protein 7.7 g/dL (6.3-8.2)
--- NOTE | 2021-12-03 19:28 | ED ---
Abdominal Pain HPI - General Chief Complaint: Abdominal Pain Stated Complaint: ABD PAIN DIZZINESS Time Seen by Provider: 12/03/21 16:47 Source: patient Mode of arrival: ambulatory Limitations: no limitations - History of Present Illness Initial Comments: Patient is a 31-year-old female with a past medical history of chronic pancreatitis who presents to the emergency department with a chief complaint abdominal pain. Patient states symptoms started 2 days ago. Patient is well known in our emergency department. She is frequently evaluated for abdominal pain. States the pain is in the upper left abdomen, which is typical of her pancreatitis symptoms. Reports nausea without vomiting. Denies fever, chills, chest pain, lightheadedness, dizziness, blood in the urine, burning with urination. Reports normal bowel movements, last one was yesterday evening. Patient states her GI specialist doctor tomorrow has referred her to pancreatic specialist at [facility]. Patient states she is waiting on them to call regarding an appointment. - Related Data Home Medications Medication Instructions Recorded Confirmed ARIPiprazole IM SYRINGE [Abilify 400 mg IM Q30D 07/28/21 11/16/21 Maintena Syringe] Ibuprofen [Motrin] 800 mg PO Q8H PRN 11/16/21 11/16/21 Omeprazole 20 mg PO DAILY 11/16/21 11/16/21 Prochlorperazine [Compazine] 5 mg PO Q12H PRN 11/16/21 11/16/21 Propranolol HCl 20 mg PO DAILY 11/16/21 11/16/21 QUEtiapine FUMARATE [SEROquel XR] 600 mg PO HS 11/16/21 11/16/21 sitaGLIPtin [Januvia] 50 mg PO DAILY 11/16/21 11/16/21 Previous Rx's Medication Instructions Recorded Sucralfate [Carafate] 1 gm PO BID 10 Days #200 ml 11/27/21 Allergies Allergy/AdvReac Type Severity Reaction Status Date / Time bee pollen Allergy Severe Anaphylaxis Verified 12/03/21 14:08 haloperidol [From Haldol] Allergy Severe QUIT Verified 12/03/21 14:08 BREATHING haloperidol lactate Allergy Severe QUIT Verified 12/03/21 14:08 [From Haldol] BREATHING latex Allergy Severe RASH-THROAT Verified 12/03/21 14:08 CLOSES [place] Allergy Anaphylaxis Verified 12/03/21 14:08 coconut Allergy Anaphylaxis Verified 12/03/21 14:08 morphine Allergy Rash/Hives Verified 12/03/21 14:08 pineapple Allergy Anaphylaxis Verified 12/03/21 14:08 prednisone Allergy THROAT Verified 12/03/21 14:08 SWELLS spider venom Allergy Swelling Verified 12/03/21 14:08 Sulfa (Sulfonamide Allergy THROAT Verified 12/03/21 14:08 Antibiotics) SWELLS venom-wasp Allergy Swelling Verified 12/03/21 14:08 venom-wasp protein Allergy Swelling Verified 12/03/21 14:08 promethazine HCl AdvReac Severe Nausea & Verified 12/03/21 14:08 [From Phenergan] Vomiting tramadol AdvReac Severe Nausea & Verified 12/03/21 14:08 Vomiting amoxicillin AdvReac Nausea & Verified 12/03/21 14:08 Vomiting ANTS AdvReac Mild Anaphylaxis Uncoded 12/03/21 14:08 Review of Systems ROS Statement: Those systems with pertinent positive or pertinent negative responses have been documented in the HPI. ROS Other: All systems not noted in ROS Statement are negative. Past Medical History Past Medical History: Asthma, Diabetes Mellitus, GERD/Reflux Additional Past Medical History / Comment(s): migraines, degenerative disk disease, endometriosis, lupus, pancreatitis, DM2- diet controlled History of Any Multi-Drug Resistant Organisms: None Reported Past Surgical History: Cholecystectomy, Orthopedic Surgery Additional Past Surgical History / Comment(s): laparoscopc surgery for endometriosis, cyst removed from left foot, EGD, Past Anesthesia/Blood Transfusion Reactions: Previous Problems w/ Anesthesia Additional Past Anesthesia/Blood Transfusion Reaction / Comment(s): hard to wake up for 48-72 hours after laparoscopic surgery-was in hosp. for 3 days Past Psychological History: Anxiety, Depression, PTSD Smoking Status: Vaper Past Alcohol Use History: None Reported Past Drug Use History: None Reported - Past Family History Mother Family Medical History: No Reported History Additional Family Medical History / Comment(s): hx migraines Father Family Medical History: Coronary Artery Disease (CAD), Hypertension Additional Family Medical History / Comment(s): ddd, alcoholism & drug use General Exam Limitations: no limitations General appearance: alert, in no apparent distress Respiratory exam: Present: normal lung sounds bilaterally. Absent: respiratory distress, wheezes, rales, rhonchi, stridor Cardiovascular Exam: Present: regular rate, normal rhythm, normal heart sounds. Absent: systolic murmur, diastolic murmur, rubs, gallop, clicks GI/Abdominal exam: Present: soft, normal bowel sounds. Absent: distended, tenderness, guarding, rebound, rigid Neurological exam: Present: alert, oriented X3, CN II-XII intact Psychiatric exam: Present: normal affect, normal mood Skin exam: Present: warm, dry, intact, normal color. Absent: rash Course Vital Signs 12/03/21 12/03/21 14:06 19:43 Temperature 97.5 F L Pulse Rate 120 H 92 Respiratory 20 18 Rate Blood Pressure 93/64 100/69 O2 Sat by Pulse 97 Oximetry Medical Decision Making - Medical Decision Making This is a 31-year-old who presents with left upper quadrant abdominal pain. Thorough history and examination were performed. Patient is well-appearing and in no apparent distress. Vitals stable. Afebrile. The abdomen is soft and nontender. Pain controlled. Laboratory studies obtained and are relatively unremarkable. Lipase is within normal limits at 186. Patient asked for more Dilaudid prior to discharge which I declined. Patient receives narcotics often our emergency department. She will need to follow up with GI specialist. Dr. Peña is my attending. - Lab Data Result diagrams: 12/03/21 17:30 12/03/21 17:30 Lab Results 12/03/21 12/03/21 Range/Units 17:30 17:30 WBC 4.8 (3.8-10.6) k/uL RBC 4.89 (3.80-5.40) m/uL Hgb 13.8 (11.4-16.0) gm/dL Hct 42.9 (34.0-46.0) % MCV 87.7 (80.0-100.0) fL MCH 28.3 (25.0-35.0) pg MCHC 32.3 (31.0-37.0) g/dL RDW 15.5 (11.5-15.5) % Plt Count 264 (150-450) k/uL MPV 8.6 Neutrophils % 46 % Lymphocytes % 44 % Monocytes % 5 % Eosinophils % 3 % Basophils % 1 % Neutrophils # 2.2 (1.3-7.7) k/uL Lymphocytes # 2.1 (1.0-4.8) k/uL Monocytes # 0.2 (0-1.0) k/uL Eosinophils # 0.1 (0-0.7) k/uL Basophils # 0.0 (0-0.2) k/uL Sodium 138 (137-145) mmol/L Potassium 4.8 (3.5-5.1) mmol/L Chloride 102 (98-107) mmol/L Carbon Dioxide 20 L (22-30) mmol/L Anion Gap 16 mmol/L BUN 8 (7-17) mg/dL Creatinine 0.65 (0.52-1.04) mg/dL Est GFR (CKD-EPI)AfAm >90 (>60 ml/min/1.73 sqM) Est GFR (CKD-EPI)NonAf >90 (>60 ml/min/1.73 sqM) Glucose 270 H (74-99) mg/dL Calcium 11.3 H (8.4-10.2) mg/dL Total Bilirubin 0.5 (0.2-1.3) mg/dL AST 17 (14-36) U/L ALT 14 (4-34) U/L Alkaline Phosphatase 83 (38-126) U/L Total Protein 7.7 (6.3-8.2) g/dL Albumin 4.6 (3.5-5.0) g/dL Amylase 44 (30-110) U/L Lipase 186 (23-300) U/L Disposition Clinical Impression: Nausea, Left upper quadrant pain Disposition: HOME SELF-CARE Condition: Good Instructions (If sedation given, give patient instructions): Abdominal Pain (ED) Additional Instructions: Please follow up with GI specialist in 1-2 days. Return to emergency department if you experience new, concerning, or worsening symptoms. Is patient prescribed a controlled substance at d/c from ED?: No Referrals: Isi Carolina MD [Primary Care Provider] - 1-2 days Time of Disposition: 19:28
[2021-12-03 19:43] VITALS: BP 100/69; PULSE 92; RESP 18
[2021-12-03] MEDS ORDERED: KETOROLAC 15 MG/ML 1 ML VIAL IVP STA (19:55)
== END 2021-12-03 20:30 | disposition home or self-care (01) ==
LOC: EC 13:32
DX: R10.12 Left upper quadrant pain (principal); J45.909 Unspecified asthma, uncomplicated; E11.9 Type 2 diabetes mellitus without complications; K21.9 Gastro-esophageal reflux disease without esophagitis; F41.9 Anxiety disorder, unspecified; F32.A Depression, unspecified; F17.290 Nicotine dependence, other tobacco product, uncomplicated; Z91.030 Bee allergy status; Z88.8 Allergy status to other drugs, medicaments and biological substances; Z91.040 Latex allergy status; Z91.018 Allergy to other foods; Z88.6 Allergy status to analgesic agent; Z91.038 Other insect allergy status; Z88.2 Allergy status to sulfonamides; Z79.899 Other long term (current) drug therapy
CPT/HCPCS: 36415; 80053; 82150; 83690; 85025; 99284; 96374; 96375 ×2; 96361; J2765; J1170

== ENCOUNTER 2021-12-07 14:12 | Emergency (ER) | payer OTHER ==
[2021-12-07 14:40] VITALS: TEMP 98.7
[2021-12-07] MEDS ORDERED: SODIUM CHLORIDE 0.9% 1,000 ML IV STA (16:11)
[2021-12-07] MEDS ORDERED: KETOROLAC 15 MG/ML 1 ML VIAL IVP STA (16:12)
[2021-12-07] MEDS ORDERED: ONDANSETRON 4 MG/2 ML VIAL IVP STA (16:12)
[2021-12-07] MEDS ORDERED: diphenhydrAMINE 50 MG/ML 1 ML VIAL IVP STA (16:12)
[2021-12-07] MEDS ORDERED: PANTOPRAZOLE 40 MG/10 ML VIAL IVP STA (16:12)
--- NOTE | 2021-12-07 16:40 | ED ---
Abdominal Pain HPI - General Chief Complaint: Abdominal Pain Stated Complaint: migraine,abd pain Time Seen by Provider: 12/07/21 15:53 Source: patient Mode of arrival: ambulatory - History of Present Illness Initial Comments: 31-year-old female patient with past history significant for migraines and pancreatitis presents to the emergency department today for evaluation of headac he and abdominal pain. States for the last couple days she's been having left upper quadrant pain with radiation through to her back. Describes the pain as stabbing. States she is nauseated today and did have an episode of vomiting yesterday. She denies any fever or chills. States her migraine is typical of her usual symptoms with pain on the left side, blurred vision, and light sensitivity. She states she did take Tylenol Motrin prior to coming in that did not help. She denies any constipation or diarrhea. Denies any hematuria, dysuria, urinary frequency, urinary urgency. Denies any recent alcohol use. Denies any chance of . Last period was 11/24/2021. Patient denies any recent rash, cough, shortness of breath, chest pain, numbness, tingling, dizziness, weakness, or any other complaints. - Related Data Home Medications Medication Instructions Recorded Confirmed ARIPiprazole IM SYRINGE [Abilify 400 mg IM Q30D 07/28/21 11/16/21 Maintena Syringe] Ibuprofen [Motrin] 800 mg PO Q8H PRN 11/16/21 11/16/21 Omeprazole 20 mg PO DAILY 11/16/21 11/16/21 Prochlorperazine [Compazine] 5 mg PO Q12H PRN 11/16/21 11/16/21 Propranolol HCl 20 mg PO DAILY 11/16/21 11/16/21 QUEtiapine FUMARATE [SEROquel XR] 600 mg PO HS 11/16/21 11/16/21 sitaGLIPtin [Januvia] 50 mg PO DAILY 11/16/21 11/16/21 Previous Rx's Medication Instructions Recorded Sucralfate [Carafate] 1 gm PO BID 10 Days #200 ml 11/27/21 Allergies Allergy/AdvReac Type Severity Reaction Status Date / Time bee pollen Allergy Severe Anaphylaxis Verified 12/07/21 14:39 haloperidol [From Haldol] Allergy Severe QUIT Verified 12/07/21 14:39 BREATHING haloperidol lactate Allergy Severe QUIT Verified 12/07/21 14:39 [From Haldol] BREATHING latex Allergy Severe RASH-THROAT Verified 12/07/21 14:39 CLOSES [place] Allergy Anaphylaxis Verified 12/07/21 14:39 coconut Allergy Anaphylaxis Verified 12/07/21 14:39 morphine Allergy Rash/Hives Verified 12/07/21 14:39 pineapple Allergy Anaphylaxis Verified 12/07/21 14:39 prednisone Allergy THROAT Verified 12/07/21 14:39 SWELLS spider venom Allergy Swelling Verified 12/07/21 14:39 Sulfa (Sulfonamide Allergy THROAT Verified 12/07/21 14:39 Antibiotics) SWELLS venom-wasp Allergy Swelling Verified 12/07/21 14:39 venom-wasp protein Allergy Swelling Verified 12/07/21 14:39 promethazine HCl AdvReac Severe Nausea & Verified 12/07/21 14:39 [From Phenergan] Vomiting tramadol AdvReac Severe Nausea & Verified 12/07/21 14:39 Vomiting amoxicillin AdvReac Nausea & Verified 12/07/21 14:39 Vomiting ANTS AdvReac Mild Anaphylaxis Uncoded 12/06/21 05:15 Review of Systems ROS Statement: Those systems with pertinent positive or pertinent negative responses have been documented in the HPI. ROS Other: All systems not noted in ROS Statement are negative. Past Medical History Past Medical History: Asthma, Diabetes Mellitus, GERD/Reflux Additional Past Medical History / Comment(s): migraines, degenerative disk disease, endometriosis, lupus, pancreatitis, DM2- diet controlled History of Any Multi-Drug Resistant Organisms: None Reported Past Surgical History: Cholecystectomy, Orthopedic Surgery Additional Past Surgical History / Comment(s): laparoscopc surgery for endom etriosis, cyst removed from left foot, EGD, Past Anesthesia/Blood Transfusion Reactions: Previous Problems w/ Anesthesia Additional Past Anesthesia/Blood Transfusion Reaction / Comment(s): hard to wake up for 48-72 hours after laparoscopic surgery-was in hosp. for 3 days Past Psychological History: Anxiety, Depression, PTSD Smoking Status: Vaper Past Alcohol Use History: None Reported Past Drug Use History: None Reported - Past Family History Mother Family Medical History: No Reported History Additional Family Medical History / Comment(s): hx migraines Father Family Medical History: Coronary Artery Disease (CAD), Hypertension Additional Family Medical History / Comment(s): ddd, alcoholism & drug use General Exam General appearance: alert, in no apparent distress, other (This is a well- developed, well-nourished adult female in no acute distress.) Eye exam: Present: normal appearance, PERRL, EOMI. Absent: scleral icterus, conjunctival injection, nystagmus, periorbital swelling ENT exam: Present: normal exam, normal oropharynx, mucous membranes moist Respiratory exam: Present: normal lung sounds bilaterally. Absent: respiratory distress, wheezes, rales, rhonchi, stridor Cardiovascular Exam: Present: normal rhythm, tachycardia, normal heart sounds. Absent: systolic murmur, diastolic murmur, rubs, gallop, clicks GI/Abdominal exam: Present: soft, tenderness (Mid epigastric, left upper quadrant), normal bowel sounds. Absent: distended, guarding, rebound, rigid Neurological exam: Present: alert, oriented X3, CN II-XII intact Psychiatric exam: Present: normal affect, normal mood Skin exam: Present: warm, dry, intact, normal color. Absent: rash Course Vital Signs 12/07/21 12/07/21 14:37 18:10 Temperature 98.7 F Pulse Rate 110 H 94 Respiratory 16 18 Rate Blood Pressure 111/79 135/94 O2 Sat by Pulse 97 96 Oximetry Medical Decision Making - Medical Decision Making 31-year-old female patient presented to the emergency department today for reports of migraine headache and abdominal pain. Patient is well-known to our department for these symptoms. Physical examination did reveal midepigastric and left upper quadrant tenderness. She is neurologically intact no focal deficits. Labs reviewed and did reveal elevated blood sugar at 277. She will be discharged to follow-up with her primary care physician and contact her s pecialist at [facility] for further evaluation of her chronic abdominal pain. Return parameters were discussed in detail. She verbalizes understanding and agrees with this plan. My attending is Dr. Rojas. - Lab Data Result diagrams: 12/07/21 17:38 12/07/21 17:38 Lab Results 12/07/21 12/07/21 Range/Units 17:38 17:38 WBC 4.5 (3.8-10.6) k/uL RBC 4.37 (3.80-5.40) m/uL Hgb 12.3 (11.4-16.0) gm/dL Hct 38.1 (34.0-46.0) % MCV 87.2 (80.0-100.0) fL MCH 28.2 (25.0-35.0) pg MCHC 32.3 (31.0-37.0) g/dL RDW 15.6 H (11.5-15.5) % Plt Count 202 (150-450) k/uL MPV 8.5 Neutrophils % 53 % Lymphocytes % 39 % Monocytes % 4 % Eosinophils % 2 % Basophils % 1 % Neutrophils # 2.4 (1.3-7.7) k/uL Lymphocytes # 1.8 (1.0-4.8) k/uL Monocytes # 0.2 (0-1.0) k/uL Eosinophils # 0.1 (0-0.7) k/uL Basophils # 0.0 (0-0.2) k/uL Sodium 135 L (137-145) mmol/L Potassium 4.7 (3.5-5.1) mmol/L Chloride 105 (98-107) mmol/L Carbon Dioxide 18 L (22-30) mmol/L Anion Gap 12 mmol/L BUN 9 (7-17) mg/dL Creatinine 0.62 (0.52-1.04) mg/dL Est GFR (CKD-EPI)AfAm >90 (>60 ml/min/1.73 sqM) Est GFR (CKD-EPI)NonAf >90 (>60 ml/min/1.73 sqM) Glucose 277 H (74-99) mg/dL Calcium 9.9 (8.4-10.2) mg/dL Total Bilirubin 0.5 (0.2-1.3) mg/dL AST 28 (14-36) U/L ALT 13 (4-34) U/L Alkaline Phosphatase 73 (38-126) U/L Total Protein 7.0 (6.3-8.2) g/dL Albumin 4.0 (3.5-5.0) g/dL Lipase 291 (23-300) U/L Disposition Clinical Impression: Migraine, Chronic abdominal pain Disposition: HOME SELF-CARE Condition: Good Instructions (If sedation given, give patient instructions): Migraine Headache (ED), Abdominal Pain (ED) Additional Instructions: Increase fluids. Rest. Follow-up with your primary care physician for recheck as soon as possible. Follow-up with her specialist at [facility] as soon as possible. Return for any new, worsening, or concerning symptoms. Is patient prescribed a controlled substance at d/c from ED?: No Referrals: Isi Carolina MD [Primary Care Provider] - 1-2 days Time of Disposition: 18:19
[2021-12-07 17:56] LABS: Basophils % (A) 1 %; Eosinophils # (A) 0.1 k/uL (0-0.7); Eosinophils % (A) 2 %; HCT 38.1 % (34.0-46.0); HGB 12.3 gm/dL (11.4-16.0); Lymphocytes # (A) 1.8 k/uL (1.0-4.8); Lymphocytes % (A) 39 %; MCH 28.2 pg (25.0-35.0); MCHC 32.3 g/dL (31.0-37.0); MCV 87.2 fL (80.0-100.0); Mean Platelet Volume 8.5; Monocytes # (A) 0.2 k/uL (0-1.0); Monocytes % (A) 4 %; Neutrophils # (A) 2.4 k/uL (1.3-7.7); Neutrophils % (A) 53 %; Platelet Count 202 k/uL (150-450); RBC 4.37 m/uL (3.80-5.40); RDW 15.6 % (11.5-15.5); WBC 4.5 k/uL (3.8-10.6)
[2021-12-07 18:09] LABS: ALT 13 U/L (4-34); African American GFR (CKD) >90 (>60 ml/min/1.73 sqM); Anion Gap 12 mmol/L; Blood Urea Nitrogen 9 mg/dL (7-17); Calcium 9.9 mg/dL (8.4-10.2); Carbon Dioxide 18 mmol/L (22-30); Chloride 105 mmol/L (98-107); Glucose 277 mg/dL (74-99); Lipase 291 U/L (23-300); Non-African American GFR(CKD) >90 (>60 ml/min/1.73 sqM); Sodium 135 mmol/L (137-145); Total Bilirubin 0.5 mg/dL (0.2-1.3)
[2021-12-07 18:10] VITALS: RESP 18
[2021-12-07 18:16] LABS: AST 28 U/L (14-36); Potassium 4.7 mmol/L (3.5-5.1)
[2021-12-07 18:17] LABS: Alkaline Phosphatase 73 U/L (38-126)
[2021-12-07 19:10] VITALS: BP 143/102; PULSE 69
== END 2021-12-07 19:10 | disposition home or self-care (01) ==
LOC: EC 14:12
DX: G43.909 Migraine, unspecified, not intractable, without status migrainosus (principal); G89.29 Other chronic pain; R10.12 Left upper quadrant pain; Z87.19 Personal history of other diseases of the digestive system; J45.909 Unspecified asthma, uncomplicated; E11.9 Type 2 diabetes mellitus without complications; K21.9 Gastro-esophageal reflux disease without esophagitis; F17.290 Nicotine dependence, other tobacco product, uncomplicated; Z88.2 Allergy status to sulfonamides; Z91.038 Other insect allergy status; Z91.030 Bee allergy status; Z88.8 Allergy status to other drugs, medicaments and biological substances; Z88.6 Allergy status to analgesic agent; Z88.1 Allergy status to other antibiotic agents; Z91.018 Allergy to other foods; Z91.040 Latex allergy status; Z88.5 Allergy status to narcotic agent; Z79.899 Other long term (current) drug therapy; Z79.84 Long term (current) use of oral hypoglycemic drugs; Z90.49 Acquired absence of other specified parts of digestive tract
CPT/HCPCS: 36415; 80053; 83690; 85025; 99283; 96374; 96375; 96361; J1200; J2405; J1885; C9113

== ENCOUNTER 2021-12-14 18:40 | Emergency (ER) | payer OTHER ==
[2021-12-14 19:37] VITALS: TEMP 98.2
[2021-12-14 19:39] LABS: Glucose,Whole Blood 450 mg/dL (70-110)
[2021-12-14] MEDS ORDERED: SODIUM CHLORIDE 0.9% 2,000 ML IV ONE (23:23)
[2021-12-14] MEDS ORDERED: KETOROLAC 15 MG/ML 1 ML VIAL IVP STA (23:38)
[2021-12-14] MEDS ORDERED: ONDANSETRON 4 MG/2 ML VIAL IVP STA (23:38)
[2021-12-15] MEDS ORDERED: INSULIN REGULAR 100 UNIT/ML VIAL (IM/SQ) SQ ONE (00:17)
--- NOTE | 2021-12-15 02:09 | ED ---
General Adult HPI - General Source: patient Mode of arrival: ambulatory Limitations: no limitations <Lindsey Funk - Last Filed: 12/15/21 02:08> <Ángel Rojas - Last Filed: 12/15/21 04:39> - General Chief complaint: Headache Stated complaint: hyperglycemia, headache Time Seen by Provider: 12/14/21 23:21 - History of Present Illness Initial comments: 31-year-old female well-known to the emergency room presents today for headache and elevated blood sugars. Patient states that she has a global, constant hea dache graded 10 out of 10 that has been present for several weeks. She has been seen in the emergency department for this same complaint. She additionally presents for high blood sugar. Patient is a diabetic for the past 4 years. Was previously controlled on metformin however was started on insulin and Januvia. States that she has been taking her medications as directed however sugars continue to run high. Her primary care has recommended that she follow up with a manufacturing finance manager. She also admits to generalized abdominal pain and nausea. (Lindsey Funk) - Related Data Home Medications Medication Instructions Recorded Confirmed ARIPiprazole IM SYRINGE [Abilify 400 mg IM Q30D 07/28/21 11/16/21 Maintena Syringe] Ibuprofen [Motrin] 800 mg PO Q8H PRN 11/16/21 11/16/21 Omeprazole 20 mg PO DAILY 11/16/21 11/16/21 Prochlorperazine [Compazine] 5 mg PO Q12H PRN 11/16/21 11/16/21 Propranolol HCl 20 mg PO DAILY 11/16/21 11/16/21 QUEtiapine FUMARATE [SEROquel XR] 600 mg PO HS 11/16/21 11/16/21 sitaGLIPtin [Januvia] 50 mg PO DAILY 11/16/21 11/16/21 Previous Rx's Medication Instructions Recorded Sucralfate [Carafate] 1 gm PO BID 10 Days #200 ml 11/27/21 Allergies Allergy/AdvReac Type Severity Reaction Status Date / Time bee pollen Allergy Severe Anaphylaxis Verified 12/14/21 19:33 haloperidol [From Haldol] Allergy Severe QUIT Verified 12/14/21 19:33 BREATHING haloperidol lactate Allergy Severe QUIT Verified 12/14/21 19:33 [From Haldol] BREATHING latex Allergy Severe RASH-THROAT Verified 12/14/21 19:33 CLOSES [place] Allergy Anaphylaxis Verified 12/14/21 19:33 coconut Allergy Anaphylaxis Verified 12/14/21 19:33 morphine Allergy Rash/Hives Verified 12/14/21 19:33 pineapple Allergy Anaphylaxis Verified 12/14/21 19:33 prednisone Allergy THROAT Verified 12/14/21 19:33 SWELLS spider venom Allergy Swelling Verified 12/14/21 19:33 Sulfa (Sulfonamide Allergy THROAT Verified 12/14/21 19:33 Antibiotics) SWELLS venom-wasp Allergy Swelling Verified 12/14/21 19:33 venom-wasp protein Allergy Swelling Verified 12/14/21 19:33 promethazine HCl AdvReac Severe Nausea & Verified 12/14/21 19:33 [From Phenergan] Vomiting tramadol AdvReac Severe Nausea & Verified 12/14/21 19:33 Vomiting amoxicillin AdvReac Nausea & Verified 12/14/21 19:33 Vomiting ANTS AdvReac Mild Anaphylaxis Uncoded 12/14/21 19:33 Review of Systems ROS Other: All systems not noted in ROS Statement are negative. <Lindsey Funk - Last Filed: 12/15/21 02:08> ROS Other: All systems not noted in ROS Statement are negative. <Ángel Rojas - Last Filed: 12/15/21 04:39> ROS Statement: Those systems with pertinent positive or pertinent negative responses have been documented in the HPI. Past Medical History Past Medical History: Asthma, Diabetes Mellitus, GERD/Reflux Additional Past Medical History / Comment(s): migraines, degenerative disk disease, endometriosis, lupus, pancreatitis, DM2- diet controlled History of Any Multi-Drug Resistant Organisms: None Reported Past Surgical History: Cholecystectomy, Orthopedic Surgery Additional Past Surgical History / Comment(s): laparoscopc surgery for endometriosis, cyst removed from left foot, EGD, Past Anesthesia/Blood Transfusion Reactions: Previous Problems w/ Anesthesia Additional Past Anesthesia/Blood Transfusion Reaction / Comment(s): hard to wake up for 48-72 hours after laparoscopic surgery-was in hosp. for 3 days Past Psychological History: Anxiety, Depression, PTSD Smoking Status: Vaper Past Alcohol Use History: None Reported Past Drug Use History: None Reported - Past Family History Mother Family Medical History: No Reported History Additional Family Medical History / Comment(s): hx migraines Father Family Medical History: Coronary Artery Disease (CAD), Hypertension Additional Family Medical History / Comment(s): ddd, alcoholism & drug use <Lindsey Funk - Last Filed: 12/15/21 02:08> General Exam Limitations: no limitations General appearance: alert, in no apparent distress Head exam: Present: atraumatic, normocephalic, normal inspection Eye exam: Present: normal appearance, PERRL, EOMI. Absent: scleral icterus, conjunctival injection, periorbital swelling ENT exam: Present: normal exam, mucous membranes moist Neck exam: Present: normal inspection. Absent: tenderness, meningismus, lymphadenopathy Respiratory exam: Present: normal lung sounds bilaterally. Absent: respiratory distress, wheezes, rales, rhonchi, stridor Cardiovascular Exam: Present: regular rate, normal rhythm, normal heart sounds. Absent: systolic murmur, diastolic murmur, rubs, gallop, clicks GI/Abdominal exam: Present: soft, normal bowel sounds. Absent: distended, tenderness, guarding, rebound, rigid Extremities exam: Present: normal inspection, full ROM, normal capillary refill. Absent: tenderness, pedal edema, joint swelling, calf tenderness Back exam: Present: normal inspection Neurological exam: Present: alert, oriented X3, CN II-XII intact Psychiatric exam: Present: normal affect, normal mood Skin exam: Present: warm, dry, intact, normal color. Absent: rash <ErickLindsey floyd - Last Filed: 12/15/21 02:08> Course Vital Signs 12/14/21 19:33 Temperature 98.2 F Pulse Rate 120 H Respiratory 16 Rate Blood Pressure 108/75 O2 Sat by Pulse 98 Oximetry Medical Decision Making <ErickeverettLindsey Alivia - Last Filed: 12/15/21 02:08> - Lab Data Result diagrams: 12/15/21 02:55 12/15/21 02:55 <Ángel Rojas - Last Filed: 12/15/21 04:39> - Medical Decision Making Upon arrival patient was placed into room 8. Thorough history and physical exam was performed. Laboratory studies are ordered. We do have difficulty with IV access due to the amount of visits that the patient has been seen in the emergency department. Ultrasound guided IV is obtained. Patient will be signed out to Dr. Rojas. (Lindsey Funk) She was signed out to me pending laboratory studies. Presents with hyperglycemia as well as a chronic headache. Was given analgesia medications. Was given fluid hydration and IV insulin. Laboratory studies remarkable for in itial hypoglycemia. Patient does not appear to be in DKA. Acetones is positive but she does not have metabolic acidosis with an anion gap. Patient is feeling improved on reevaluation. She is tolerating oral intake. Discussed the importance of taking her insulin. She was in agreement this plan. Patient will be discharged home at this time. Glucose is within appropriate limits at this time. Vital signs are within normal limits. I instructed the patient to follow up with their PCP in the next 1-3 days. I explained that the patient should return to the emergency department if they experience any worsening symptoms. Strict return precautions were discussed with the patient. The patient expressed understanding of these instructions. I answered all questions that the patient had. The patient was discharged home in good condition with their prescriptions and follow up information. (Ángel Rojas) - Lab Data Lab Results 12/14/21 12/15/21 12/15/21 Range/Units 19:37 02:55 02:55 WBC 8.2 (3.8-10.6) k/uL RBC 4.36 (3.80-5.40) m/uL Hgb 12.7 (11.4-16.0) gm/dL Hct 38.1 (34.0-46.0) % MCV 87.4 (80.0-100.0) fL MCH 29.2 (25.0-35.0) pg MCHC 33.4 (31.0-37.0) g/dL RDW 15.7 H (11.5-15.5) % Plt Count 226 (150-450) k/uL MPV 8.1 Neutrophils % 57 % Lymphocytes % 37 % Monocytes % 4 % Eosinophils % 1 % Basophils % 0 % Neutrophils # 4.7 (1.3-7.7) k/uL Lymphocytes # 3.0 (1.0-4.8) k/uL Monocytes # 0.3 (0-1.0) k/uL Eosinophils # 0.1 (0-0.7) k/uL Basophils # 0.0 (0-0.2) k/uL Sodium 133 L (137-145) mmol/L Potassium 3.9 (3.5-5.1) mmol/L Chloride 98 (98-107) mmol/L Carbon Dioxide 22 (22-30) mmol/L Anion Gap 13 mmol/L BUN 20 H (7-17) mg/dL Creatinine 0.67 (0.52-1.04) mg/dL Est GFR (CKD-EPI)AfAm >90 (>60 ml/min/1.73 sqM) Est GFR (CKD-EPI)NonAf >90 (>60 ml/min/1.73 sqM) Glucose 356 H (74-99) mg/dL POC Glucose (mg/dL) 450 H (70-110) mg/dL POC Glu Grinder Set Up Operator ID Dionicio Carrera Calcium 10.0 (8.4-10.2) mg/dL Total Bilirubin 0.2 (0.2-1.3) mg/dL AST 10 L (14-36) U/L ALT 10 (4-34) U/L Alkaline Phosphatase 79 (38-126) U/L Total Protein 6.2 L (6.3-8.2) g/dL Albumin 3.5 (3.5-5.0) g/dL Lipase 233 (23-300) U/L Acetone, Qual Positive (Negative) 12/15/21 Range/Units 04:18 WBC (3.8-10.6) k/uL RBC (3.80-5.40) m/uL Hgb (11.4-16.0) gm/dL Hct (34.0-46.0) % MCV (80.0-100.0) fL MCH (25.0-35.0) pg MCHC (31.0-37.0) g/dL RDW (11.5-15.5) % Plt Count (150-450) k/uL MPV Neutrophils % % Lymphocytes % % Monocytes % % Eosinophils % % Basophils % % Neutrophils # (1.3-7.7) k/uL Lymphocytes # (1.0-4.8) k/uL Monocytes # (0-1.0) k/uL Eosinophils # (0-0.7) k/uL Basophils # (0-0.2) k/uL Sodium (137-145) mmol/L Potassium (3.5-5.1) mmol/L Chloride (98-107) mmol/L Carbon Dioxide (22-30) mmol/L Anion Gap mmol/L BUN (7-17) mg/dL Creatinine (0.52-1.04) mg/dL Est GFR (CKD-EPI)AfAm (>60 ml/min/1.73 sqM) Est GFR (CKD-EPI)NonAf (>60 ml/min/1.73 sqM) Glucose (74-99) mg/dL POC Glucose (mg/dL) 258 H (70-110) mg/dL POC Glu Grinder Set Up Operator ID Efren Verdugo Calcium (8.4-10.2) mg/dL Total Bilirubin (0.2-1.3) mg/dL AST (14-36) U/L ALT (4-34) U/L Alkaline Phosphatase (38-126) U/L Total Protein (6.3-8.2) g/dL Albumin (3.5-5.0) g/dL Lipase (23-300) U/L Acetone, Qual (Negative) Disposition <Lindsey Funk - Last Filed: 12/15/21 02:08> Is patient prescribed a controlled substance at d/c from ED?: No Time of Disposition: 04:20 <Ángel Rojas - Last Filed: 12/15/21 04:39> Clinical Impression: Hyperglycemia due to diabetes mellitus, Headache Disposition: HOME SELF-CARE Condition: Good Instructions (If sedation given, give patient instructions): Acute Headache (ED), Diabetic Hyperglycemia (ED) Referrals: Isi Carolina MD [Primary Care Provider] - 1-2 days
[2021-12-15 03:07] LABS: Basophils % (A) 0 %; Eosinophils # (A) 0.1 k/uL (0-0.7); Eosinophils % (A) 1 %; HCT 38.1 % (34.0-46.0); HGB 12.7 gm/dL (11.4-16.0); Lymphocytes % (A) 37 %; MCH 29.2 pg (25.0-35.0); MCHC 33.4 g/dL (31.0-37.0); MCV 87.4 fL (80.0-100.0); Mean Platelet Volume 8.1; Monocytes # (A) 0.3 k/uL (0-1.0); Monocytes % (A) 4 %; Neutrophils # (A) 4.7 k/uL (1.3-7.7); Neutrophils % (A) 57 %; Platelet Count 226 k/uL (150-450); RBC 4.36 m/uL (3.80-5.40); RDW 15.7 % (11.5-15.5); WBC 8.2 k/uL (3.8-10.6)
[2021-12-15 03:48] LABS: ALT 10 U/L (4-34); AST 10 U/L (14-36); African American GFR (CKD) >90 (>60 ml/min/1.73 sqM); Albumin 3.5 g/dL (3.5-5.0); Alkaline Phosphatase 79 U/L (38-126); Anion Gap 13 mmol/L; Blood Urea Nitrogen 20 mg/dL (7-17); Carbon Dioxide 22 mmol/L (22-30); Chloride 98 mmol/L (98-107); Glucose 356 mg/dL (74-99); Lipase 233 U/L (23-300); Non-African American GFR(CKD) >90 (>60 ml/min/1.73 sqM); Potassium 3.9 mmol/L (3.5-5.1); Sodium 133 mmol/L (137-145); Total Bilirubin 0.2 mg/dL (0.2-1.3); Total Protein 6.2 g/dL (6.3-8.2)
[2021-12-15 04:20] LABS: Glucose,Whole Blood 258 mg/dL (70-110)
[2021-12-15] MEDS ORDERED: diphenhydrAMINE 50 MG/ML 1 ML VIAL IVP STA (04:20)
[2021-12-15 04:49] VITALS: BP 119/74; PULSE 78; RESP 15
== END 2021-12-15 04:47 | disposition home or self-care (01) ==
LOC: EC 18:40
DX: E11.65 Type 2 diabetes mellitus with hyperglycemia (principal); J45.909 Unspecified asthma, uncomplicated; K21.9 Gastro-esophageal reflux disease without esophagitis; F17.209 Nicotine dependence, unspecified, with unspecified nicotine-induced disorders; Z79.4 Long term (current) use of insulin; Z79.899 Other long term (current) drug therapy; Z91.030 Bee allergy status; Z88.8 Allergy status to other drugs, medicaments and biological substances; Z91.040 Latex allergy status; Z91.018 Allergy to other foods; Z88.6 Allergy status to analgesic agent; Z91.038 Other insect allergy status; Z88.2 Allergy status to sulfonamides; Z88.5 Allergy status to narcotic agent; Z88.0 Allergy status to penicillin
CPT/HCPCS: 36415; 80053; 82009; 83690; 85025; 96361; 96374; 96375; 99284

== ENCOUNTER 2021-12-17 22:45 | Emergency (ER) | payer OTHER ==
[2021-12-17 22:57] VITALS: TEMP 98.3
--- NOTE | 2021-12-17 23:08 | ED ---
Abdominal Pain HPI - General Chief Complaint: Abdominal Pain Stated Complaint: Abd Pain Time Seen by Provider: 12/17/21 23:07 Source: patient, RN notes reviewed, old records reviewed Mode of arrival: ambulatory Limitations: no limitations - History of Present Illness Initial Comments: This is a 31-year-old female to the emergency department for evaluation she is well-known to our ER for abdominal pain chronic pain chronic medical issues and problems. Patient is here for headache and migraine headache. As well as abdominal migrated no abdominal pain. No new symptoms no new complaints his or alcohol chronic issues MD Complaint: abdominal pain -: days(s) Location: diffuse, epigastric, suprapubic Radiation: epigastric, suprapubic Migration to: epigastric, suprapubic Severity: moderate Severity scale (1-10): 7 Quality: stabbing, aching Consistency: constant Improves With: nothing Worsens With: nothing Context: recent surgery/procedure (Earlier in the year) Associated Symptoms: nausea, vomiting, other (Headache) Treatments Prior to Arrival: other (0) - Related Data Home Medications Medication Instructions Recorded Confirmed ARIPiprazole IM SYRINGE [Abilify 400 mg IM Q30D 07/28/21 11/16/21 Maintena Syringe] Ibuprofen [Motrin] 800 mg PO Q8H PRN 11/16/21 11/16/21 Omeprazole 20 mg PO DAILY 11/16/21 11/16/21 Prochlorperazine [Compazine] 5 mg PO Q12H PRN 11/16/21 11/16/21 Propranolol HCl 20 mg PO DAILY 11/16/21 11/16/21 QUEtiapine FUMARATE [SEROquel XR] 600 mg PO HS 11/16/21 11/16/21 sitaGLIPtin [Januvia] 50 mg PO DAILY 11/16/21 11/16/21 Previous Rx's Medication Instructions Recorded Sucralfate [Carafate] 1 gm PO BID 10 Days #200 ml 11/27/21 Allergies Allergy/AdvReac Type Severity Reaction Status Date / Time bee pollen Allergy Severe Anaphylaxis Verified 12/17/21 22:57 haloperidol [From Haldol] Allergy Severe QUIT Verified 12/17/21 22:57 BREATHING haloperidol lactate Allergy Severe QUIT Verified 12/17/21 22:57 [From Haldol] BREATHING latex Allergy Severe RASH-THROAT Verified 12/17/21 22:57 CLOSES [place] Allergy Anaphylaxis Verified 12/17/21 22:57 coconut Allergy Anaphylaxis Verified 12/17/21 22:57 morphine Allergy Rash/Hives Verified 12/17/21 22:57 pineapple Allergy Anaphylaxis Verified 12/17/21 22:57 prednisone Allergy THROAT Verified 12/17/21 22:57 SWELLS spider venom Allergy Swelling Verified 12/17/21 22:57 Sulfa (Sulfonamide Allergy THROAT Verified 12/17/21 22:57 Antibiotics) SWELLS venom-wasp Allergy Swelling Verified 12/17/21 22:57 venom-wasp protein Allergy Swelling Verified 12/17/21 22:57 promethazine HCl AdvReac Severe Nausea & Verified 12/17/21 22:57 [From Phenergan] Vomiting tramadol AdvReac Severe Nausea & Verified 12/17/21 22:57 Vomiting amoxicillin AdvReac Nausea & Verified 12/17/21 22:57 Vomiting ANTS AdvReac Mild Anaphylaxis Uncoded 12/17/21 22:57 Review of Systems ROS Statement: Those systems with pertinent positive or pertinent negative responses have been documented in the HPI. ROS Other: All systems not noted in ROS Statement are negative. Past Medical History Past Medical History: Asthma, Diabetes Mellitus, GERD/Reflux Additional Past Medical History / Comment(s): migraines, degenerative disk disease, endometriosis, lupus, pancreatitis, DM2- diet controlled History of Any Multi-Drug Resistant Organisms: None Reported Past Surgical History: Cholecystectomy, Orthopedic Surgery Additional Past Surgical History / Comment(s): laparoscopc surgery for endometriosis, cyst removed from left foot, EGD, Past Anesthesia/Blood Transfusion Reactions: Previous Problems w/ Anesthesia Additional Past Anesthesia/Blood Transfusion Reaction / Comment(s): hard to wake up for 48-72 hours after laparoscopic surgery-was in hosp. for 3 days Past Psychological History: Anxiety, Depression, PTSD Smoking Status: Vaper Past Alcohol Use History: None Reported Past Drug Use History: None Reported - Past Family History Mother Family Medical History: No Reported History Additional Family Medical History / Comment(s): hx migraines Father Family Medical History: Coronary Artery Disease (CAD), Hypertension Additional Family Medical History / Comment(s): ddd, alcoholism & drug use General Exam Limitations: no limitations General appearance: alert, in no apparent distress, anxious Head exam: Present: atraumatic, normocephalic, normal inspection Eye exam: Present: normal appearance, PERRL, EOMI. Absent: scleral icterus, conjunctival injection, periorbital swelling ENT exam: Present: normal exam, mucous membranes moist Neck exam: Present: normal inspection. Absent: tenderness, meningismus, lymphadenopathy Respiratory exam: Present: normal lung sounds bilaterally. Absent: respiratory distress, wheezes, rales, rhonchi, stridor Cardiovascular Exam: Present: normal rhythm, tachycardia, normal heart sounds. Absent: systolic murmur, diastolic murmur, rubs, gallop, clicks GI/Abdominal exam: Present: soft, normal bowel sounds. Absent: distended, tenderness, guarding, rebound, rigid Extremities exam: Present: normal inspection, full ROM, normal capillary refill. Absent: tenderness, pedal edema, joint swelling, calf tenderness Back exam: Present: normal inspection Neurological exam: Present: alert, oriented X3, CN II-XII intact Psychiatric exam: Present: normal affect, normal mood Skin exam: Present: warm, dry, intact, normal color. Absent: rash Course Vital Signs 12/17/21 22:54 Temperature 98.3 F Pulse Rate 143 H Respiratory 20 Rate Blood Pressure 125/94 O2 Sat by Pulse 97 Oximetry - Reevaluation(s) Reevaluation #1: 12/18/21 01:03 Medical record is reviewed Reevaluation #2: 12/18/21 01:52 Patient symptoms are improved here in the ER Reevaluation #3: 12/18/21 01:52 Patient informed results and questions answered Medical Decision Making - Medical Decision Making 31-year-old female well-known to facility for similar complaints that she has to day abdominal pain fever hyperglycemia. All symptoms are resolved here in the ER she can be discharged home - Lab Data Result diagrams: 12/18/21 00:46 12/18/21 00:46 Lab Results 12/18/21 12/18/21 Range/Units 00:46 00:46 WBC 6.7 (3.8-10.6) k/uL RBC 4.35 (3.80-5.40) m/uL Hgb 12.4 (11.4-16.0) gm/dL Hct 37.8 (34.0-46.0) % MCV 87.0 (80.0-100.0) fL MCH 28.5 (25.0-35.0) pg MCHC 32.7 (31.0-37.0) g/dL RDW 15.1 (11.5-15.5) % Plt Count 227 (150-450) k/uL MPV 8.1 Neutrophils % 61 % Lymphocytes % 31 % Monocytes % 5 % Eosinophils % 2 % Basophils % 1 % Neutrophils # 4.1 (1.3-7.7) k/uL Lymphocytes # 2.1 (1.0-4.8) k/uL Monocytes # 0.3 (0-1.0) k/uL Eosinophils # 0.1 (0-0.7) k/uL Basophils # 0.0 (0-0.2) k/uL Sodium 129 L (137-145) mmol/L Potassium 4.4 (3.5-5.1) mmol/L Chloride 93 L (98-107) mmol/L Carbon Dioxide 22 (22-30) mmol/L Anion Gap 14 mmol/L BUN 17 (7-17) mg/dL Creatinine 1.18 H (0.52-1.04) mg/dL Est GFR (CKD-EPI)AfAm 72 (>60 ml/min/1.73 sqM) Est GFR (CKD-EPI)NonAf 62 (>60 ml/min/1.73 sqM) Glucose 495 H (74-99) mg/dL Calcium 10.7 H (8.4-10.2) mg/dL Magnesium 1.7 (1.6-2.3) mg/dL Total Bilirubin 0.3 (0.2-1.3) mg/dL AST 10 L (14-36) U/L ALT 9 (4-34) U/L Alkaline Phosphatase 108 (38-126) U/L Total Protein 6.3 (6.3-8.2) g/dL Albumin 3.6 (3.5-5.0) g/dL Amylase 50 (30-110) U/L Lipase 289 (23-300) U/L Acetone, Qual Negative (Negative) - Radiology Data Radiology results: report reviewed (X-ray KUB is negative for acute disease), image reviewed Disposition Clinical Impression: Nausea & vomiting, Migraine headache, Abdominal pain, Tachycardia, Diabetes Disposition: HOME SELF-CARE Condition: Good Instructions (If sedation given, give patient instructions): Abdominal Pain (ED), Acute Headache (ED) Is patient prescribed a controlled substance at d/c from ED?: No Referrals: Isi Carolina MD [Primary Care Provider] - 1-2 days Time of Disposition: 02:00
[2021-12-17] MEDS ORDERED: HYDROmorphone 1 MG/ML 1 ML SYRINGE IVP STA (23:33)
[2021-12-17] MEDS ORDERED: ONDANSETRON 4 MG/2 ML VIAL IVP STA (23:33)
[2021-12-17] MEDS ORDERED: PANTOPRAZOLE 40 MG/10 ML VIAL IVP STA (23:33)
[2021-12-17] MEDS ORDERED: diphenhydrAMINE 50 MG/ML 1 ML VIAL IVP STA (23:33)
[2021-12-17] MEDS ORDERED: SODIUM CHLORIDE 0.9% 500 ML 500 ML IV STA ×2 (23:33)
[2021-12-17] MEDS ORDERED: SODIUM CHLORIDE 0.9% 1,000 ML IV STA ×4 (23:33)
[2021-12-18 01:16] LABS: Basophils % (A) 1 %; Eosinophils # (A) 0.1 k/uL (0-0.7); Eosinophils % (A) 2 %; HCT 37.8 % (34.0-46.0); HGB 12.4 gm/dL (11.4-16.0); Lymphocytes # (A) 2.1 k/uL (1.0-4.8); Lymphocytes % (A) 31 %; MCH 28.5 pg (25.0-35.0); MCHC 32.7 g/dL (31.0-37.0); Mean Platelet Volume 8.1; Monocytes # (A) 0.3 k/uL (0-1.0); Monocytes % (A) 5 %; Neutrophils # (A) 4.1 k/uL (1.3-7.7); Neutrophils % (A) 61 %; Platelet Count 227 k/uL (150-450); RBC 4.35 m/uL (3.80-5.40); RDW 15.1 % (11.5-15.5); WBC 6.7 k/uL (3.8-10.6)
[2021-12-18 01:36] LABS: ALT 9 U/L (4-34); AST 10 U/L (14-36); African American GFR (CKD) 72 (>60 ml/min/1.73 sqM); Albumin 3.6 g/dL (3.5-5.0); Alkaline Phosphatase 108 U/L (38-126); Amylase 50 U/L (30-110); Anion Gap 14 mmol/L; Blood Urea Nitrogen 17 mg/dL (7-17); Calcium 10.7 mg/dL (8.4-10.2); Carbon Dioxide 22 mmol/L (22-30); Chloride 93 mmol/L (98-107); Glucose 495 mg/dL (74-99); Lipase 289 U/L (23-300); Magnesium 1.7 mg/dL (1.6-2.3); Non-African American GFR(CKD) 62 (>60 ml/min/1.73 sqM); Potassium 4.4 mmol/L (3.5-5.1); Sodium 129 mmol/L (137-145); Total Bilirubin 0.3 mg/dL (0.2-1.3); Total Protein 6.3 g/dL (6.3-8.2)
[2021-12-18] MEDS ORDERED: INSULIN REGULAR 100 UNIT/ML VIAL (IM/SQ) SQ ONE (01:51)
[2021-12-18] MEDS ORDERED: INSULIN REGULAR 100 UNIT/ML VIAL (IV) IV ONE (01:51)
[2021-12-18 01:54] VITALS: BP 140/90; PULSE 95; RESP 14
[2021-12-18 01:56] LABS: Appearance,Urine Cloudy (Clear); Bacteria,Urine Moderate /hpf; Bilirubin,Urine Negative (Negative); Blood,Urine Large (Negative); Budding Yeast,Urine Occasional /hpf; Color,Urine Colorless; Glucose,Urine (UA) 4+ (Negative); Hyaline Casts,Urine 1 /lpf (0-2); Ketones,Urine Negative (Negative); Leukocyte Esterase,Urine Large (Negative); Nitrite,Urine Negative (Negative); PH, Urine 6.5 (5.0-8.0); Protein,Urine Negative (Negative); RBC,Urine 5 /hpf (0-5); Specific Gravity,Urine 1.023 (1.001-1.035); Squamous Epithelial Cell,Urine 5 /hpf (0-4); Urobilinogen,Urine <2.0 mg/dL (<2.0); WBC,Urine 75 /hpf (0-5)
--- NOTE | 2021-12-18 01:57 | XR ---
EXAM: XR Abdomen, 1 View CLINICAL HISTORY: ITS.REASON XR Reason: abdominal pain TECHNIQUE: Frontal supine view of the abdomen/pelvis. COMPARISON: No relevant prior studies available. FINDINGS: Gastrointestinal tract: Large amount of stool throughout the colon measuring up to 6.8 cm in diameter suggesting mild constipation. The stomach is distended with ingested material but nondilated. No dilated small bowel loops. Organs: Cholecystectomy clips in the right upper quadrant. Bones/joints: Unremarkable. IMPRESSION: Large amount of stool throughout the colon measuring up to 6.8 cm in diameter suggesting mild constipation.
== END 2021-12-18 02:13 | disposition home or self-care (01) ==
LOC: EC 22:45
DX: E11.9 Type 2 diabetes mellitus without complications (principal); G43.909 Migraine, unspecified, not intractable, without status migrainosus; R10.13 Epigastric pain; R00.0 Tachycardia, unspecified; J45.909 Unspecified asthma, uncomplicated; K21.9 Gastro-esophageal reflux disease without esophagitis; F17.290 Nicotine dependence, other tobacco product, uncomplicated; Z79.84 Long term (current) use of oral hypoglycemic drugs; Z79.899 Other long term (current) drug therapy; Z91.030 Bee allergy status; Z88.8 Allergy status to other drugs, medicaments and biological substances; Z91.040 Latex allergy status; Z91.018 Allergy to other foods; Z88.6 Allergy status to analgesic agent; Z91.038 Other insect allergy status; Z88.2 Allergy status to sulfonamides; Z88.5 Allergy status to narcotic agent; Z88.0 Allergy status to penicillin
CPT/HCPCS: 36415; 80053; 82150; 82009; 83690; 83735; 85025; 81001; 74018; 99284; 96374; 96375; 96361; J1200; J2405; J1170; C9113

== ENCOUNTER 2021-12-22 11:24 | Emergency (ER) | payer OTHER ==
[2021-12-22 11:33] VITALS: BP 102/81; PULSE 122; RESP 24; TEMP 98
[2021-12-22] MEDS ORDERED: KETOROLAC 15 MG/ML 1 ML VIAL IM STA (13:39)
--- NOTE | 2021-12-22 13:42 | ED ---
General Adult HPI - General Chief complaint: Headache Stated complaint: headache, stomach pain Time Seen by Provider: 12/22/21 13:22 Source: patient Mode of arrival: ambulatory Limitations: no limitations - History of Present Illness Initial comments: Dictation was produced using [employer] dictation software. please excuse any grammatical, word or spelling errors. Chief Complaint: 31-year-old female well-known to emergency Department presents to the emergency department again for acute headache. History of Present Illness: Patient is a 31-year-old female she is well-known to emergency department for multiple visitations for abdominal pain and headache. She states she's had a headache for the last 24-48 hours. Patient is a history of severe migraines. Patient denies any nausea or vomiting. States that her headache feels like her usual headaches. No numbness and paresthesias to the arms or legs. The ROS documented in this emergency department record has been reviewed and confirmed by me. Those systems with pertinent positive or negative responses have been documented in the HPI. All other systems are other negative and/or noncontributory. PHYSICAL EXAM: General Impression: Alert and oriented x3, not in acute distress HEENT: Normocephalic atraumatic, extra-ocular movements intact, pupils equal and reactive to light bilaterally, mucous membranes moist. Cardiovascular: Heart regular rate and rhythm Chest: Able to complete full sentences, no retractions, no tachypnea Musculoskeletal: Pulses present and equal in all extremities, no peripheral edema Motor: no focal deficits noted Neurological: CN II-XII grossly intact, no focal motor or sensory deficits noted Skin: Intact with no visualized rashes Psych: Normal affect and mood ED course: 31 y Old female presents emergency department for acute on chronic headaches. Patient's well-known to emergency department for multiple visitations for headaches. Patient has history of extensive history of headaches. She is told that she needs to follow-up with her specialist. Patient states she does have a specialist however has not followed up recently. Vital signs upon arrival are within acceptable limits. Physical examination appears to be baseline. Patient given IM analgesics and discharge. - Related Data Home Medications Medication Instructions Recorded Confirmed ARIPiprazole IM SYRINGE [Abilify 400 mg IM Q30D 07/28/21 11/16/21 Maintena Syringe] Ibuprofen [Motrin] 800 mg PO Q8H PRN 11/16/21 11/16/21 Omeprazole 20 mg PO DAILY 11/16/21 11/16/21 Prochlorperazine [Compazine] 5 mg PO Q12H PRN 11/16/21 11/16/21 Propranolol HCl 20 mg PO DAILY 11/16/21 11/16/21 QUEtiapine FUMARATE [SEROquel XR] 600 mg PO HS 11/16/21 11/16/21 sitaGLIPtin [Januvia] 50 mg PO DAILY 11/16/21 11/16/21 Previous Rx's Medication Instructions Recorded Sucralfate [Carafate] 1 gm PO BID 10 Days #200 ml 11/27/21 Allergies Allergy/AdvReac Type Severity Reaction Status Date / Time bee pollen Allergy Severe Anaphylaxis Verified 12/22/21 11:34 haloperidol [From Haldol] Allergy Severe QUIT Verified 12/22/21 11:34 BREATHING haloperidol lactate Allergy Severe QUIT Verified 12/22/21 11:34 [From Haldol] BREATHING latex Allergy Severe RASH-THROAT Verified 12/22/21 11:34 CLOSES [place] Allergy Anaphylaxis Verified 12/22/21 11:34 coconut Allergy Anaphylaxis Verified 12/22/21 11:34 morphine Allergy Rash/Hives Verified 12/22/21 11:34 pineapple Allergy Anaphylaxis Verified 12/22/21 11:34 prednisone Allergy THROAT Verified 12/22/21 11:34 SWELLS spider venom Allergy Swelling Verified 12/22/21 11:34 Sulfa (Sulfonamide Allergy THROAT Verified 12/22/21 11:34 Antibiotics) SWELLS venom-wasp Allergy Swelling Verified 12/22/21 11:34 venom-wasp protein Allergy Swelling Verified 12/22/21 11:34 promethazine HCl AdvReac Severe Nausea & Verified 12/22/21 11:34 [From Phenergan] Vomiting tramadol AdvReac Severe Nausea & Verified 12/22/21 11:34 Vomiting amoxicillin AdvReac Nausea & Verified 12/22/21 11:34 Vomiting ANTS AdvReac Mild Anaphylaxis Uncoded 12/22/21 11:34 Review of Systems ROS Statement: Those systems with pertinent positive or pertinent negative responses have been documented in the HPI. ROS Other: All systems not noted in ROS Statement are negative. Past Medical History Past Medical History: Asthma, Diabetes Mellitus, GERD/Reflux Additional Past Medical History / Comment(s): migraines, degenerative disk disease, endometriosis, lupus, pancreatitis, DM2- diet controlled History of Any Multi-Drug Resistant Organisms: None Reported Past Surgical History: Cholecystectomy, Orthopedic Surgery Additional Past Surgical History / Comment(s): laparoscopc surgery for endometriosis, cyst removed from left foot, EGD, Past Anesthesia/Blood Transfusion Reactions: Previous Problems w/ Anesthesia Additional Past Anesthesia/Blood Transfusion Reaction / Comment(s): hard to wake up for 48-72 hours after laparoscopic surgery-was in hosp. for 3 days Past Psychological History: Anxiety, Depression, PTSD Smoking Status: Vaper Past Alcohol Use History: None Reported Past Drug Use History: None Reported - Past Family History Mother Family Medical History: No Reported History Additional Family Medical History / Comment(s): hx migraines Father Family Medical History: Coronary Artery Disease (CAD), Hypertension Additional Family Medical History / Comment(s): ddd, alcoholism & drug use General Exam Limitations: no limitations Course Vital Signs 12/22/21 11:32 Temperature 98 F Pulse Rate 122 H Respiratory 24 Rate Blood Pressure 102/81 O2 Sat by Pulse 99 Oximetry Disposition Clinical Impression: Headache Disposition: HOME SELF-CARE Condition: Good Instructions (If sedation given, give patient instructions): Acute Headache (ED) Is patient prescribed a controlled substance at d/c from ED?: No Referrals: Isi Carolina MD [Primary Care Provider] - 1-2 days Time of Disposition: 13:42
== END 2021-12-22 14:15 | disposition home or self-care (01) ==
LOC: EC 11:24
DX: R51.9 Headache, unspecified (principal); R10.9 Unspecified abdominal pain; J45.909 Unspecified asthma, uncomplicated; E11.9 Type 2 diabetes mellitus without complications; K21.9 Gastro-esophageal reflux disease without esophagitis; F17.290 Nicotine dependence, other tobacco product, uncomplicated; Z79.84 Long term (current) use of oral hypoglycemic drugs; Z91.030 Bee allergy status; Z88.8 Allergy status to other drugs, medicaments and biological substances; Z91.040 Latex allergy status; Z91.018 Allergy to other foods; Z88.6 Allergy status to analgesic agent; Z91.038 Other insect allergy status; Z88.2 Allergy status to sulfonamides; Z88.5 Allergy status to narcotic agent; Z88.0 Allergy status to penicillin
CPT/HCPCS: 99283; 96372; J1885

== ENCOUNTER 2021-12-29 18:24 | Emergency (ER) | payer OTHER ==
[2021-12-29] MEDS ORDERED: SODIUM CHLORIDE 0.9% 1,000 ML IV STA (19:16)
[2021-12-29] MEDS ORDERED: ONDANSETRON 4 MG/2 ML VIAL IVP STA (19:16)
[2021-12-29] MEDS ORDERED: KETOROLAC 15 MG/ML 1 ML VIAL IVP STA (19:18)
[2021-12-29 19:20] LABS: Glucose,Whole Blood 277 mg/dL (70-110)
--- NOTE | 2021-12-29 19:23 | ED ---
General Adult HPI - General Chief complaint: Recheck/Abnormal Lab/Rx Stated complaint: migraine Time Seen by Provider: 12/29/21 19:08 Source: patient, RN notes reviewed Mode of arrival: EMS Limitations: no limitations - History of Present Illness Initial comments: This is a pleasant 31-year-old diabetic female presents to emergency department complaining of hyperglycemia, headache, patient states that she went to her engineer technical staff morning and had her dosage of Lantus bumped up from 50 units to 45 units. Patient's sugar was running high in excess of 300 that time. Patient's glucometer was reading high twice this afternoon. Patient has nausea but no vomiting. Headache is consistent with what she has felt in the past. Patient suffers from chronic and recurrent headaches. no changes in vision or hearing, no sore throat or difficulty with speech, no neck pain, no chest pain or shortness of breath, no abdominal pain, no nausea or vomiting, no changes in urination With regard to dysuria or bowel movements, patient denies vaginal discharge or pelvic pain, as chance of . no numbness or tingling, no extremity pain, no skin rashes or lesions. Past medical, surgical, social, and family history reviewed. - Related Data Home Medications Medication Instructions Recorded Confirmed ARIPiprazole IM SYRINGE [Abilify 400 mg IM Q30D 07/28/21 11/16/21 Maintena Syringe] Ibuprofen [Motrin] 800 mg PO Q8H PRN 11/16/21 11/16/21 Omeprazole 20 mg PO DAILY 11/16/21 11/16/21 Prochlorperazine [Compazine] 5 mg PO Q12H PRN 11/16/21 11/16/21 Propranolol HCl 20 mg PO DAILY 11/16/21 11/16/21 QUEtiapine FUMARATE [SEROquel XR] 600 mg PO HS 11/16/21 11/16/21 sitaGLIPtin [Januvia] 50 mg PO DAILY 11/16/21 11/16/21 Previous Rx's Medication Instructions Recorded Sucralfate [Carafate] 1 gm PO BID 10 Days #200 ml 11/27/21 Allergies Allergy/AdvReac Type Severity Reaction Status Date / Time bee pollen Allergy Severe Anaphylaxis Verified 12/29/21 18:46 haloperidol [From Haldol] Allergy Severe QUIT Verified 12/29/21 18:46 BREATHING haloperidol lactate Allergy Severe QUIT Verified 12/29/21 18:46 [From Haldol] BREATHING latex Allergy Severe RASH-THROAT Verified 12/29/21 18:46 CLOSES [place] Allergy Anaphylaxis Verified 12/29/21 18:46 coconut Allergy Anaphylaxis Verified 12/29/21 18:46 morphine Allergy Rash/Hives Verified 12/29/21 18:46 pineapple Allergy Anaphylaxis Verified 12/29/21 18:46 prednisone Allergy THROAT Verified 12/29/21 18:46 SWELLS spider venom Allergy Swelling Verified 12/29/21 18:46 Sulfa (Sulfonamide Allergy THROAT Verified 12/29/21 18:46 Antibiotics) SWELLS venom-wasp Allergy Swelling Verified 12/29/21 18:46 venom-wasp protein Allergy Swelling Verified 12/29/21 18:46 promethazine HCl AdvReac Severe Nausea & Verified 12/29/21 18:46 [From Phenergan] Vomiting tramadol AdvReac Severe Nausea & Verified 12/29/21 18:46 Vomiting amoxicillin AdvReac Nausea & Verified 12/29/21 18:46 Vomiting ANTS AdvReac Mild Anaphylaxis Uncoded 12/29/21 18:46 Review of Systems ROS Statement: Those systems with pertinent positive or pertinent negative responses have been documented in the HPI. ROS Other: All systems not noted in ROS Statement are negative. Past Medical History Past Medical History: Asthma, Diabetes Mellitus, GERD/Reflux Additional Past Medical History / Comment(s): migraines, degenerative disk disease, endometriosis, lupus, pancreatitis, DM2- insulin History of Any Multi-Drug Resistant Organisms: None Reported Past Surgical History: Cholecystectomy, Orthopedic Surgery Additional Past Surgical History / Comment(s): laparoscopc surgery for endometriosis, cyst removed from left foot, EGD, Past Anesthesia/Blood Transfusion Reactions: Previous Problems w/ Anesthesia Additional Past Anesthesia/Blood Transfusion Reaction / Comment(s): hard to wake up for 48-72 hours after laparoscopic surgery-was in hosp. for 3 days Past Psychological History: Anxiety, Depression, PTSD Smoking Status: Vaper Past Alcohol Use History: None Reported Past Drug Use History: None Reported - Past Family History Mother Family Medical History: No Reported History Additional Family Medical History / Comment(s): hx migraines Father Family Medical History: Coronary Artery Disease (CAD), Hypertension Additional Family Medical History / Comment(s): ddd, alcoholism & drug use General Exam - General Exam Comments Initial Comments: 31-year-old female presents to emergency department in minimal distress. Patient does not appear to be ill or toxic. No respiratory distress. Appears to be somewhat dehydrated with mildly dry mucous membranes. Capillary refill less than 2 seconds. Central color is normal. No mottling cranial nerves II through XII grossly intact. No evidence of nuchal rigidity. Limitations: no limitations General appearance: alert, in distress Head exam: Present: atraumatic, normocephalic, normal inspection Eye exam: Present: normal appearance, PERRL, EOMI. Absent: scleral icterus, conjunctival injection, periorbital swelling ENT exam: Present: normal exam, mucous membranes dry, mucous membranes moist, TM's normal bilaterally, normal external ear exam Neck exam: Present: normal inspection, full ROM. Absent: tenderness, meningismus, lymphadenopathy, thyromegaly Respiratory exam: Present: normal lung sounds bilaterally. Absent: respiratory distress, wheezes, rales, rhonchi, stridor, chest wall tenderness, accessory muscle use Cardiovascular Exam: Present: normal rhythm, tachycardia, normal heart sounds. Absent: systolic murmur, diastolic murmur, rubs, gallop, clicks GI/Abdominal exam: Present: soft, normal bowel sounds. Absent: distended, tenderness, guarding, rebound, rigid Extremities exam: Present: normal inspection, full ROM, normal capillary refill. Absent: tenderness, pedal edema, joint swelling, calf tenderness Back exam: Present: normal inspection Neurological exam: Present: alert, oriented X3, CN II-XII intact Psychiatric exam: Present: normal affect, normal mood Skin exam: Present: warm, dry, intact, normal color. Absent: rash Course Vital Signs 12/29/21 12/29/21 18:38 20:59 Temperature 100.0 F H 98.0 F Pulse Rate 110 H 107 H Respiratory 16 18 Rate Blood Pressure 117/85 116/84 O2 Sat by Pulse 97 98 Oximetry - Reevaluation(s) Reevaluation #1: 12/29/21 21:33 Medical record is reviewed Symptoms are improved here in the emergency department Patient is informed of results and questions answered Patient in no distress Medical Decision Making - Medical Decision Making This is a 31-year-old female who is a frequent visitor to the emergency department to patient has a low-grade fever today which raises suspicion of infectious etiology such as viral syndrome. Patient normally gets headaches very frequently. Patient also frequently has blood sugars are out of control. Patient saw her engineer technical staff this morning. Patient has no abdominal pain, some nausea, glucometer reading high. We'll work the patient up for possible infectious process versus DKA. patient presents with low-grade fever, headache which is normal for her. No focal neurologic deficits. No nuchal rigidity. COVID-19 testing is negative. Chest x-ray is clear. Urinalysis shows no acute findings. Patient's blood sugar is elevated however patient has just started an increased dose of Lantus as directed by her engineer technical staff. We'll have her follow up with her engineer technical staff and her regular physician tomorrow. The case was discussed in detail with ED attending physician. Presentation, findings, treatment plan discussed in detail. Patient was told to return to the ER for any signs or symptoms worsen. Told to return immediately if any other problems arise. All questions answered. Treatment plan discussed. Patient in agreement Every effort has been made to ensure accuracy of this dictation. However, due to the limitations of electronic medical records and dictation devices, errors in charting still occur. Meeting Coordinator Dr. Turner - Lab Data Result diagrams: 12/29/21 20:17 12/29/21 20:17 Lab Results 12/29/21 12/29/21 12/29/21 Range/Units 19:17 20:17 20:17 WBC 6.9 (3.8-10.6) k/uL RBC 4.04 (3.80-5.40) m/uL Hgb 11.6 (11.4-16.0) gm/dL Hct 35.4 (34.0-46.0) % MCV 87.6 (80.0-100.0) fL MCH 28.6 (25.0-35.0) pg MCHC 32.7 (31.0-37.0) g/dL RDW 15.9 H (11.5-15.5) % Plt Count 282 (150-450) k/uL MPV 7.7 Neutrophils % 60 % Lymphocytes % 32 % Monocytes % 3 % Eosinophils % 4 % Basophils % 1 % Neutrophils # 4.1 (1.3-7.7) k/uL Lymphocytes # 2.2 (1.0-4.8) k/uL Monocytes # 0.2 (0-1.0) k/uL Eosinophils # 0.3 (0-0.7) k/uL Basophils # 0.0 (0-0.2) k/uL VBG pH (7.31-7.41) VBG pCO2 (37-51) mmHg VBG HCO3 (24-28) mmol/L Sodium (137-145) mmol/L Potassium (3.5-5.1) mmol/L Chloride (98-107) mmol/L Carbon Dioxide (22-30) mmol/L Anion Gap mmol/L BUN (7-17) mg/dL Creatinine (0.52-1.04) mg/dL Est GFR (CKD-EPI)AfAm (>60 ml/min/1.73 sqM) Est GFR (CKD-EPI)NonAf (>60 ml/min/1.73 sqM) Glucose (74-99) mg/dL POC Glucose (mg/dL) 277 H (70-110) mg/dL POC Glu Group Care Worker ID Dionicio Schwartz Plasma Lactic Acid Aurelio (0.7-2.0) mmol/L Calcium (8.4-10.2) mg/dL Magnesium (1.6-2.3) mg/dL Total Bilirubin (0.2-1.3) mg/dL AST (14-36) U/L ALT (4-34) U/L Alkaline Phosphatase (38-126) U/L Total Protein (6.3-8.2) g/dL Albumin (3.5-5.0) g/dL Lipase (23-300) U/L Urine Color Light Yellow Urine Appearance Clear (Clear) Urine pH 7.0 (5.0-8.0) Ur Specific [place] 1.022 (1.001-1.035) Urine Protein Negative (Negative) Urine Glucose (UA) 4+ H (Negative) Urine Ketones Negative (Negative) Urine Blood Negative (Negative) Urine Nitrite Negative (Negative) Urine Bilirubin Negative (Negative) Urine Urobilinogen <2.0 (<2.0) mg/dL Ur Leukocyte Esterase Negative (Negative) Urine HCG, Qual (Not Detectd) Acetone, Qual (Negative) Coronavirus (PCR) (Not Detectd) 12/29/21 12/29/21 12/29/21 Range/Units 20:17 20:17 20:17 WBC (3.8-10.6) k/uL RBC (3.80-5.40) m/uL Hgb (11.4-16.0) gm/dL Hct (34.0-46.0) % MCV (80.0-100.0) fL MCH (25.0-35.0) pg MCHC (31.0-37.0) g/dL RDW (11.5-15.5) % Plt Count (150-450) k/uL MPV Neutrophils % % Lymphocytes % % Monocytes % % Eosinophils % % Basophils % % Neutrophils # (1.3-7.7) k/uL Lymphocytes # (1.0-4.8) k/uL Monocytes # (0-1.0) k/uL Eosinophils # (0-0.7) k/uL Basophils # (0-0.2) k/uL VBG pH (7.31-7.41) VBG pCO2 (37-51) mmHg VBG HCO3 (24-28) mmol/L Sodium 134 L (137-145) mmol/L Potassium 4.4 (3.5-5.1) mmol/L Chloride 101 (98-107) mmol/L Carbon Dioxide 20 L (22-30) mmol/L Anion Gap 13 mmol/L BUN 11 (7-17) mg/dL Creatinine 0.78 (0.52-1.04) mg/dL Est GFR (CKD-EPI)AfAm >90 (>60 ml/min/1.73 sqM) Est GFR (CKD-EPI)NonAf >90 (>60 ml/min/1.73 sqM) Glucose 291 H (74-99) mg/dL POC Glucose (mg/dL) (70-110) mg/dL POC Glu Group Care Worker ID Plasma Lactic Acid Aurelio 1.4 (0.7-2.0) mmol/L Calcium 10.5 H (8.4-10.2) mg/dL Magnesium 1.7 (1.6-2.3) mg/dL Total Bilirubin 0.3 (0.2-1.3) mg/dL AST 14 (14-36) U/L ALT 13 (4-34) U/L Alkaline Phosphatase 71 (38-126) U/L Total Protein 6.7 (6.3-8.2) g/dL Albumin 3.9 (3.5-5.0) g/dL Lipase 231 (23-300) U/L Urine Color Urine Appearance (Clear) Urine pH (5.0-8.0) Ur Specific [place] (1.001-1.035) Urine Protein (Negative) Urine Glucose (UA) (Negative) Urine Ketones (Negative) Urine Blood (Negative) Urine Nitrite (Negative) Urine Bilirubin (Negative) Urine Urobilinogen (<2.0) mg/dL Ur Leukocyte Esterase (Negative) Urine HCG, Qual Not Detected (Not Detectd) Acetone, Qual Negative (Negative) Coronavirus (PCR) (Not Detectd) 12/29/21 12/29/21 Range/Units 20:17 20:17 WBC (3.8-10.6) k/uL RBC (3.80-5.40) m/uL Hgb (11.4-16.0) gm/dL Hct (34.0-46.0) % MCV (80.0-100.0) fL MCH (25.0-35.0) pg MCHC (31.0-37.0) g/dL RDW (11.5-15.5) % Plt Count (150-450) k/uL MPV Neutrophils % % Lymphocytes % % Monocytes % % Eosinophils % % Basophils % % Neutrophils # (1.3-7.7) k/uL Lymphocytes # (1.0-4.8) k/uL Monocytes # (0-1.0) k/uL Eosinophils # (0-0.7) k/uL Basophils # (0-0.2) k/uL VBG pH 7.46 H (7.31-7.41) VBG pCO2 33 L (37-51) mmHg VBG HCO3 23 L (24-28) mmol/L Sodium (137-145) mmol/L Potassium (3.5-5.1) mmol/L Chloride (98-107) mmol/L Carbon Dioxide (22-30) mmol/L Anion Gap mmol/L BUN (7-17) mg/dL Creatinine (0.52-1.04) mg/dL Est GFR (CKD-EPI)AfAm (>60 ml/min/1.73 sqM) Est GFR (CKD-EPI)NonAf (>60 ml/min/1.73 sqM) Glucose (74-99) mg/dL POC Glucose (mg/dL) (70-110) mg/dL POC Glu Group Care Worker ID Plasma Lactic Acid Aurelio (0.7-2.0) mmol/L Calcium (8.4-10.2) mg/dL Magnesium (1.6-2.3) mg/dL Total Bilirubin (0.2-1.3) mg/dL AST (14-36) U/L ALT (4-34) U/L Alkaline Phosphatase (38-126) U/L Total Protein (6.3-8.2) g/dL Albumin (3.5-5.0) g/dL Lipase (23-300) U/L Urine Color Urine Appearance (Clear) Urine pH (5.0-8.0) Ur Specific [place] (1.001-1.035) Urine Protein (Negative) Urine Glucose (UA) (Negative) Urine Ketones (Negative) Urine Blood (Negative) Urine Nitrite (Negative) Urine Bilirubin (Negative) Urine Urobilinogen (<2.0) mg/dL Ur Leukocyte Esterase (Negative) Urine HCG, Qual (Not Detectd) Acetone, Qual (Negative) Coronavirus (PCR) Not Detected (Not Detectd) Disposition Clinical Impression: Recurrent headache, Viral syndrome, Uncontrolled diabetes mellitus Disposition: HOME SELF-CARE Condition: Stable Instructions (If sedation given, give patient instructions): Migraine Headache (ED), Viral Syndrome (ED), Diabetic Hyperglycemia (ED) Additional Instructions: Follow-up with your regular physician as directed. Return to the ER immediately if any symptoms worsen, new symptoms arise, or any other problems develop. Continue your increased dose of Lantus as directed by your engineer technical staff. Call your regular doctor in the morning for follow-up. Is patient prescribed a controlled substance at d/c from ED?: No Referrals: Isi Carolina MD [Primary Care Provider] - 1-2 days Time of Disposition: 21:35
--- NOTE | 2021-12-29 20:10 | XR ---
EXAMINATION TYPE: XR chest 1V portable DATE OF EXAM: 12/29/2021 8:03 PM COMPARISON: Chest radiographs from 11/27/2020. TECHNIQUE: XR chest 1V portable Portable AP radiograph of the chest. CLINICAL INDICATION:Female, 31 years old with history of fever; FINDINGS: Lungs/Pleura: There is no evidence of pleural effusion, focal consolidation, or pneumothorax. Pulmonary vascularity: Unremarkable. Heart/mediastinum: Cardiomediastinal silhouette is unremarkable. Musculoskeletal: No acute osseous pathology. IMPRESSION: No acute cardiopulmonary disease/process.
[2021-12-29 20:31] LABS: Basophils % (A) 1 %; Eosinophils # (A) 0.3 k/uL (0-0.7); Eosinophils % (A) 4 %; HCT 35.4 % (34.0-46.0); HGB 11.6 gm/dL (11.4-16.0); Lymphocytes # (A) 2.2 k/uL (1.0-4.8); Lymphocytes % (A) 32 %; MCH 28.6 pg (25.0-35.0); MCHC 32.7 g/dL (31.0-37.0); MCV 87.6 fL (80.0-100.0); Mean Platelet Volume 7.7; Monocytes # (A) 0.2 k/uL (0-1.0); Monocytes % (A) 3 %; Neutrophils # (A) 4.1 k/uL (1.3-7.7); Neutrophils % (A) 60 %; Platelet Count 282 k/uL (150-450); RBC 4.04 m/uL (3.80-5.40); RDW 15.9 % (11.5-15.5); WBC 6.9 k/uL (3.8-10.6)
[2021-12-29 20:32] LABS: VBG PH 7.46 (7.31-7.41)
[2021-12-29 20:45] LABS: ALT 13 U/L (4-34); AST 14 U/L (14-36); African American GFR (CKD) >90 (>60 ml/min/1.73 sqM); Albumin 3.9 g/dL (3.5-5.0); Alkaline Phosphatase 71 U/L (38-126); Anion Gap 13 mmol/L; Blood Urea Nitrogen 11 mg/dL (7-17); Calcium 10.5 mg/dL (8.4-10.2); Carbon Dioxide 20 mmol/L (22-30); Chloride 101 mmol/L (98-107); Glucose 291 mg/dL (74-99); Lipase 231 U/L (23-300); Magnesium 1.7 mg/dL (1.6-2.3); Non-African American GFR(CKD) >90 (>60 ml/min/1.73 sqM); Potassium 4.4 mmol/L (3.5-5.1); Sodium 134 mmol/L (137-145); Total Bilirubin 0.3 mg/dL (0.2-1.3); Total Protein 6.7 g/dL (6.3-8.2)
[2021-12-29 21:09] LABS: Appearance,Urine Clear (Clear); Bilirubin,Urine Negative (Negative); Blood,Urine Negative (Negative); Color,Urine Light Yellow; Glucose,Urine (UA) 4+ (Negative); Ketones,Urine Negative (Negative); Leukocyte Esterase,Urine Negative (Negative); Nitrite,Urine Negative (Negative); Protein,Urine Negative (Negative); Specific Gravity,Urine 1.022 (1.001-1.035); Urobilinogen,Urine <2.0 mg/dL (<2.0)
[2021-12-29] MEDS ORDERED: diphenhydrAMINE 50 MG/ML 1 ML VIAL IVP STA (21:13)
[2021-12-29] MEDS ORDERED: METOCLOPRAMIDE 5 MG/ML 2 ML VIAL IVP STA (21:27)
[2021-12-29 22:21] VITALS: BP 100/74; PULSE 96; RESP 18; TEMP 98.4
== END 2021-12-29 22:54 | disposition home or self-care (01) ==
LOC: EC 18:24
DX: E11.65 Type 2 diabetes mellitus with hyperglycemia (principal); B34.9 Viral infection, unspecified; J45.909 Unspecified asthma, uncomplicated; K21.9 Gastro-esophageal reflux disease without esophagitis; F17.290 Nicotine dependence, other tobacco product, uncomplicated; Z20.822 Contact with and (suspected) exposure to COVID-19; Z79.899 Other long term (current) drug therapy; Z79.84 Long term (current) use of oral hypoglycemic drugs; Z91.030 Bee allergy status; Z88.8 Allergy status to other drugs, medicaments and biological substances; Z91.040 Latex allergy status; Z91.018 Allergy to other foods; Z88.6 Allergy status to analgesic agent; Z91.038 Other insect allergy status; Z88.2 Allergy status to sulfonamides; Z88.5 Allergy status to narcotic agent; Z88.0 Allergy status to penicillin
CPT/HCPCS: 36415; 80053; 82803; 82009; 83605; 83690; 83735; 85025; 81003; 81025; 87040; 87635; 71045; 99285; 96374; 96375; 96361; J1200; J2765; J2405; J1885

== ENCOUNTER 2021-12-30 22:19 | Emergency (ER) | payer OTHER ==
[2021-12-30 22:25] VITALS: TEMP 98.8
[2021-12-31] MEDS ORDERED: diphenhydrAMINE 50 MG/ML 1 ML VIAL IVP STA (00:40)
[2021-12-31] MEDS ORDERED: METOCLOPRAMIDE 5 MG/ML 2 ML VIAL IVP STA (00:40)
[2021-12-31] MEDS ORDERED: SODIUM CHLORIDE 0.9% 1,000 ML IV ONE ×2 (00:40→01:57)
[2021-12-31 01:17] LABS: Basophils % (A) 0 %; Eosinophils # (A) 0.2 k/uL (0-0.7); Eosinophils % (A) 2 %; HCT 36.4 % (34.0-46.0); HGB 11.7 gm/dL (11.4-16.0); Lymphocytes # (A) 2.4 k/uL (1.0-4.8); Lymphocytes % (A) 30 %; MCV 87.5 fL (80.0-100.0); Monocytes # (A) 0.4 k/uL (0-1.0); Monocytes % (A) 5 %; Neutrophils # (A) 4.9 k/uL (1.3-7.7); Neutrophils % (A) 61 %; Platelet Count 280 k/uL (150-450); RBC 4.16 m/uL (3.80-5.40); RDW 15.9 % (11.5-15.5)
[2021-12-31 01:26] LABS: ALT 12 U/L (4-34); AST 12 U/L (14-36); African American GFR (CKD) >90 (>60 ml/min/1.73 sqM); Alkaline Phosphatase 72 U/L (38-126); Anion Gap 13 mmol/L; Blood Urea Nitrogen 11 mg/dL (7-17); Calcium 10.8 mg/dL (8.4-10.2); Carbon Dioxide 20 mmol/L (22-30); Chloride 99 mmol/L (98-107); Glucose 357 mg/dL (74-99); Non-African American GFR(CKD) >90 (>60 ml/min/1.73 sqM); Potassium 4.5 mmol/L (3.5-5.1); Sodium 132 mmol/L (137-145); Total Bilirubin 0.3 mg/dL (0.2-1.3); Total Protein 6.7 g/dL (6.3-8.2)
[2021-12-31] MEDS ORDERED: INSULIN REGULAR 100 UNIT/ML VIAL (IV) SQ STA (01:57)
[2021-12-31 03:47] LABS: Glucose,Whole Blood 202 mg/dL (70-110)
--- NOTE | 2021-12-31 04:45 | ED ---
Headache HPI - General Chief Complaint: Headache Stated Complaint: migraine, abd pain Time Seen by Provider: 12/30/21 23:42 Mode of arrival: ambulatory Limitations: no limitations - History of Present Illness Initial Comments: This patient is a 31-year-old woman with history of diabetes who states that she has had sugars that were up and down the past few days and that she believes she has headache as result of this. Patient denies fever or chills. No neck pain or stiffness. No neurologic symptoms. Not worst headache of life. MD Complaint: headache -: days(s) Onset Description: gradual Location: diffuse Severity: severe Quality: aching Consistency: constant Improves With: nothing Worsens With: none Associated Symptoms: photophobia - Related Data Home Medications Medication Instructions Recorded Confirmed ARIPiprazole IM SYRINGE [Abilify 400 mg IM Q30D 07/28/21 11/16/21 Maintena Syringe] Ibuprofen [Motrin] 800 mg PO Q8H PRN 11/16/21 11/16/21 Omeprazole 20 mg PO DAILY 11/16/21 11/16/21 Prochlorperazine [Compazine] 5 mg PO Q12H PRN 11/16/21 11/16/21 Propranolol HCl 20 mg PO DAILY 11/16/21 11/16/21 QUEtiapine FUMARATE [SEROquel XR] 600 mg PO HS 11/16/21 11/16/21 sitaGLIPtin [Januvia] 50 mg PO DAILY 11/16/21 11/16/21 Previous Rx's Medication Instructions Recorded Sucralfate [Carafate] 1 gm PO BID 10 Days #200 ml 11/27/21 Allergies Allergy/AdvReac Type Severity Reaction Status Date / Time bee pollen Allergy Severe Anaphylaxis Verified 01/05/22 08:17 haloperidol [From Haldol] Allergy Severe QUIT Verified 01/05/22 08:17 BREATHING haloperidol lactate Allergy Severe QUIT Verified 01/05/22 08:17 [From Haldol] BREATHING latex Allergy Severe RASH-THROAT Verified 01/05/22 08:17 CLOSES [place] Allergy Anaphylaxis Verified 01/05/22 08:17 coconut Allergy Anaphylaxis Verified 01/05/22 08:17 morphine Allergy Rash/Hives Verified 01/05/22 08:17 pineapple Allergy Anaphylaxis Verified 01/05/22 08:17 prednisone Allergy THROAT Verified 01/05/22 08:17 SWELLS spider venom Allergy Swelling Verified 01/05/22 08:17 Sulfa (Sulfonamide Allergy THROAT Verified 01/05/22 08:17 Antibiotics) SWELLS venom-wasp Allergy Swelling Verified 01/05/22 08:17 venom-wasp protein Allergy Swelling Verified 01/05/22 08:17 promethazine HCl AdvReac Severe Nausea & Verified 01/05/22 08:17 [From Phenergan] Vomiting tramadol AdvReac Severe Nausea & Verified 01/05/22 08:17 Vomiting amoxicillin AdvReac Nausea & Verified 01/05/22 08:17 Vomiting ANTS AdvReac Mild Anaphylaxis Uncoded 01/05/22 08:17 Review of Systems ROS Statement: Those systems with pertinent positive or pertinent negative responses have been documented in the HPI. ROS Other: All systems not noted in ROS Statement are negative. Constitutional: Denies: fever, chills, weakness Eyes: Denies: eye pain, vision change ENT: Denies: hearing loss Respiratory: Denies: cough, dyspnea Cardiovascular: Denies: chest pain, syncope Gastrointestinal: Reports: nausea. Denies: abdominal pain, vomiting Genitourinary: Denies: dysuria Musculoskeletal: Denies: back pain Skin: Denies: rash Neurological: Reports: headache. Denies: weakness, numbness, paresthesias, confusion Past Medical History Past Medical History: Asthma, Diabetes Mellitus, GERD/Reflux Additional Past Medical History / Comment(s): migraines, degenerative disk disease, endometriosis, lupus, pancreatitis, DM2- insulin History of Any Multi-Drug Resistant Organisms: None Reported Past Surgical History: Cholecystectomy, Orthopedic Surgery Additional Past Surgical History / Comment(s): laparoscopc surgery for endometriosis, cyst removed from left foot, EGD, Past Anesthesia/Blood Transfusion Reactions: Previous Problems w/ Anesthesia Additional Past Anesthesia/Blood Transfusion Reaction / Comment(s): hard to wake up for 48-72 hours after laparoscopic surgery-was in hosp. for 3 days Past Psychological History: Anxiety, Depression, PTSD Smoking Status: Vaper Past Alcohol Use History: None Reported Past Drug Use History: None Reported - Past Family History Mother Family Medical History: No Reported History Additional Family Medical History / Comment(s): hx migraines Father Family Medical History: Coronary Artery Disease (CAD), Hypertension Additional Family Medical History / Comment(s): ddd, alcoholism & drug use General Exam Limitations: no limitations General appearance: alert, in no apparent distress Head exam: Present: atraumatic, normocephalic Eye exam: Present: normal appearance. Absent: scleral icterus, conjunctival injection ENT exam: Present: normal oropharynx Neck exam: Present: normal inspection, full ROM. Absent: tenderness, meningismus Respiratory exam: Present: normal lung sounds bilaterally. Absent: respiratory distress, wheezes, rales, rhonchi, stridor Cardiovascular Exam: Present: regular rate, normal rhythm, normal heart sounds. Absent: systolic murmur, diastolic murmur, rubs, gallop GI/Abdominal exam: Present: soft. Absent: distended, tenderness, guarding, rebound Neurological exam: Present: alert, oriented X3, CN II-XII intact. Absent: motor sensory deficit Skin exam: Present: warm, dry, intact, normal color. Absent: rash Course Vital Signs 12/30/21 12/31/21 22:24 04:48 Temperature 98.8 F Pulse Rate 130 H 106 H Respiratory 20 16 Rate Blood Pressure 113/79 96/67 O2 Sat by Pulse 96 98 Oximetry Medical Decision Making - Lab Data Result diagrams: 12/31/21 01:05 12/31/21 01:13 Lab Results 12/31/21 12/31/21 12/31/21 Range/Units 01:05 01:13 03:44 WBC 8.0 (3.8-10.6) k/uL RBC 4.16 (3.80-5.40) m/uL Hgb 11.7 (11.4-16.0) gm/dL Hct 36.4 (34.0-46.0) % MCV 87.5 (80.0-100.0) fL MCH 28.0 (25.0-35.0) pg MCHC 32.0 (31.0-37.0) g/dL RDW 15.9 H (11.5-15.5) % Plt Count 280 (150-450) k/uL MPV 8.0 Neutrophils % 61 % Lymphocytes % 30 % Monocytes % 5 % Eosinophils % 2 % Basophils % 0 % Neutrophils # 4.9 (1.3-7.7) k/uL Lymphocytes # 2.4 (1.0-4.8) k/uL Monocytes # 0.4 (0-1.0) k/uL Eosinophils # 0.2 (0-0.7) k/uL Basophils # 0.0 (0-0.2) k/uL Sodium 132 L (137-145) mmol/L Potassium 4.5 (3.5-5.1) mmol/L Chloride 99 (98-107) mmol/L Carbon Dioxide 20 L (22-30) mmol/L Anion Gap 13 mmol/L BUN 11 (7-17) mg/dL Creatinine 0.74 (0.52-1.04) mg/dL Est GFR (CKD-EPI)AfAm >90 (>60 ml/min/1.73 sqM) Est GFR (CKD-EPI)NonAf >90 (>60 ml/min/1.73 sqM) Glucose 357 H (74-99) mg/dL POC Glucose (mg/dL) 202 H (70-110) mg/dL POC Glu Customs Appraiser ID Dionicio Carrera Calcium 10.8 H (8.4-10.2) mg/dL Total Bilirubin 0.3 (0.2-1.3) mg/dL AST 12 L (14-36) U/L ALT 12 (4-34) U/L Alkaline Phosphatase 72 (38-126) U/L Total Protein 6.7 (6.3-8.2) g/dL Albumin 4.0 (3.5-5.0) g/dL Disposition Clinical Impression: Uncontrolled diabetes mellitus, Headache Disposition: HOME SELF-CARE Condition: Good Instructions (If sedation given, give patient instructions): Acute Headache (ED) Is patient prescribed a controlled substance at d/c from ED?: No Referrals: Isi Carolina MD [Primary Care Provider] - 1-2 days
[2021-12-31 04:49] VITALS: BP 96/67; PULSE 106; RESP 16
[2021-12-31] MEDS ORDERED: KETOROLAC 15 MG/ML 1 ML VIAL IVP STA (05:14)
[2021-12-31] MEDS ORDERED: ONDANSETRON 4 MG/2 ML VIAL IVP STA (05:14)
== END 2021-12-31 05:45 | disposition home or self-care (01) ==
LOC: EC 22:19
DX: E11.9 Type 2 diabetes mellitus without complications (principal); G43.909 Migraine, unspecified, not intractable, without status migrainosus; J45.909 Unspecified asthma, uncomplicated; K21.9 Gastro-esophageal reflux disease without esophagitis; F41.9 Anxiety disorder, unspecified; F32.A Depression, unspecified; F17.290 Nicotine dependence, other tobacco product, uncomplicated; Z91.030 Bee allergy status; Z88.8 Allergy status to other drugs, medicaments and biological substances; Z91.018 Allergy to other foods; Z91.038 Other insect allergy status; Z79.899 Other long term (current) drug therapy
CPT/HCPCS: 36415; 80053; 85025; 99284; 96374; 96375 ×3; 96361 ×2; J1200; J2765; J2405; J1885

== ENCOUNTER 2022-01-03 09:04 | Emergency (ER) | payer BC, OTHER ==
[2022-01-03 09:23] VITALS: RESP 16; TEMP 97.9
[2022-01-03] MEDS ORDERED: SODIUM CHLORIDE 0.9% 1,000 ML IV STA (09:25)
[2022-01-03] MEDS ORDERED: KETOROLAC 15 MG/ML 1 ML VIAL IVP STA (09:25)
[2022-01-03] MEDS ORDERED: diphenhydrAMINE 50 MG/ML 1 ML VIAL IVP STA (09:26)
[2022-01-03] MEDS ORDERED: METOCLOPRAMIDE 5 MG/ML 2 ML VIAL IVP STA (09:26)
--- NOTE | 2022-01-03 09:30 | ED ---
General Adult HPI - General Chief complaint: Headache Stated complaint: Abd pain,migraine Time Seen by Provider: 01/03/22 09:15 Source: patient, RN notes reviewed, old records reviewed Mode of arrival: ambulatory Limitations: no limitations - History of Present Illness Initial comments: This is a 31-year-old female presents emergency Department complaining of headache and some abdominal pain. Patient states she has a history of migraines. Patient states took Motrin and Tylenol and Excedrin has not helped. Patient states she is mildly nauseated and she has some mild epigastric abdominal pain. Patient states she is a diabetic but she has not taken her sugar today. Patient denies any fever chills per patient denies any actual vomiting or diarrhea. Patient denies any back pain. Patient denies any dysuria hematuria urinary frequency. Patient denies any fever chills. - Related Data Home Medications Medication Instructions Recorded Confirmed ARIPiprazole IM SYRINGE [Abilify 400 mg IM Q30D 07/28/21 11/16/21 Maintena Syringe] Ibuprofen [Motrin] 800 mg PO Q8H PRN 11/16/21 11/16/21 Omeprazole 20 mg PO DAILY 11/16/21 11/16/21 Prochlorperazine [Compazine] 5 mg PO Q12H PRN 11/16/21 11/16/21 Propranolol HCl 20 mg PO DAILY 11/16/21 11/16/21 QUEtiapine FUMARATE [SEROquel XR] 600 mg PO HS 11/16/21 11/16/21 sitaGLIPtin [Januvia] 50 mg PO DAILY 11/16/21 11/16/21 Previous Rx's Medication Instructions Recorded Sucralfate [Carafate] 1 gm PO BID 10 Days #200 ml 11/27/21 Allergies Allergy/AdvReac Type Severity Reaction Status Date / Time bee pollen Allergy Severe Anaphylaxis Verified 01/03/22 09:13 haloperidol [From Haldol] Allergy Severe QUIT Verified 01/03/22 09:13 BREATHING haloperidol lactate Allergy Severe QUIT Verified 01/03/22 09:13 [From Haldol] BREATHING latex Allergy Severe RASH-THROAT Verified 01/03/22 09:13 CLOSES [place] Allergy Anaphylaxis Verified 01/03/22 09:13 coconut Allergy Anaphylaxis Verified 01/03/22 09:13 morphine Allergy Rash/Hives Verified 01/03/22 09:13 pineapple Allergy Anaphylaxis Verified 01/03/22 09:13 prednisone Allergy THROAT Verified 01/03/22 09:13 SWELLS spider venom Allergy Swelling Verified 01/03/22 09:13 Sulfa (Sulfonamide Allergy THROAT Verified 01/03/22 09:13 Antibiotics) SWELLS venom-wasp Allergy Swelling Verified 01/03/22 09:13 venom-wasp protein Allergy Swelling Verified 01/03/22 09:13 promethazine HCl AdvReac Severe Nausea & Verified 01/03/22 09:13 [From Phenergan] Vomiting tramadol AdvReac Severe Nausea & Verified 01/03/22 09:13 Vomiting amoxicillin AdvReac Nausea & Verified 01/03/22 09:13 Vomiting ANTS AdvReac Mild Anaphylaxis Uncoded 01/03/22 09:13 Review of Systems ROS Statement: Those systems with pertinent positive or pertinent negative responses have been documented in the HPI. ROS Other: All systems not noted in ROS Statement are negative. Past Medical History Past Medical History: Asthma, Diabetes Mellitus, GERD/Reflux Additional Past Medical History / Comment(s): migraines, degenerative disk disease, endometriosis, lupus, pancreatitis, DM2- insulin History of Any Multi-Drug Resistant Organisms: None Reported Past Surgical History: Cholecystectomy, Orthopedic Surgery Additional Past Surgical History / Comment(s): laparoscopc surgery for endomet riosis, cyst removed from left foot, EGD, Past Anesthesia/Blood Transfusion Reactions: Previous Problems w/ Anesthesia Additional Past Anesthesia/Blood Transfusion Reaction / Comment(s): hard to wake up for 48-72 hours after laparoscopic surgery-was in hosp. for 3 days Past Psychological History: Anxiety, Depression, PTSD Smoking Status: Vaper Past Alcohol Use History: None Reported Past Drug Use History: None Reported - Past Family History Mother Family Medical History: No Reported History Additional Family Medical History / Comment(s): hx migraines Father Family Medical History: Coronary Artery Disease (CAD), Hypertension Additional Family Medical History / Comment(s): ddd, alcoholism & drug use General Exam - General Exam Comments Initial Comments: GENERAL: Patient is well-developed and well-nourished. Patient is nontoxic and well- hydrated and is in mild distress. ENT: Neck is soft and supple. No significant lymphadenopathy is noted. Oropharynx is clear. Moist mucous membranes. Neck has full range of motion without elici ting any pain. EYES: The sclera were anicteric and conjunctiva were pink and moist. Extraocular movements were intact and pupils were equal round and reactive to light. Eyelids were unremarkable. PULMONARY: Unlabored respirations. Good breath sounds bilaterally. No audible rales rhonchi or wheezing was noted. CARDIOVASCULAR: There is a regular rate and rhythm without any murmurs gallops or rubs. ABDOMEN: Patient's epigastric area is mildly tender SKIN: Skin is clear with no lesions or rashes and otherwise unremarkable. NEUROLOGIC: Patient is alert and oriented x3. Cranial nerves II through XII are grossly intact. Motor and sensory are also intact. Normal speech, volume and content. Symmetrical smile. MUSCULOSKELETAL: Normal extremities with adequate strength and full range of motion. LYMPHATICS: No significant lymphadenopathy is noted PSYCHIATRIC: Normal psychiatric evaluation. Limitations: no limitations Course Vital Signs 01/03/22 09:11 Temperature 97.9 F Pulse Rate 100 Respiratory 16 Rate Blood Pressure 130/92 O2 Sat by Pulse 98 Oximetry Medical Decision Making - Medical Decision Making patient received Reglan better on Toradol here for her headache. Patient's pain in the abdomen was improved as well as the headache. - Lab Data Result diagrams: 01/03/22 09:41 01/03/22 09:41 Lab Results 01/03/22 01/03/22 Range/Units 09:41 09:41 WBC 7.3 (3.8-10.6) k/uL RBC 3.68 L (3.80-5.40) m/uL Hgb 10.4 L (11.4-16.0) gm/dL Hct 32.0 L (34.0-46.0) % MCV 86.9 (80.0-100.0) fL MCH 28.3 (25.0-35.0) pg MCHC 32.5 (31.0-37.0) g/dL RDW 16.2 H (11.5-15.5) % Plt Count 236 (150-450) k/uL MPV 8.4 Neutrophils % 67 % Lymphocytes % 26 % Monocytes % 4 % Eosinophils % 1 % Basophils % 0 % Neutrophils # 4.9 (1.3-7.7) k/uL Lymphocytes # 1.9 (1.0-4.8) k/uL Monocytes # 0.3 (0-1.0) k/uL Eosinophils # 0.1 (0-0.7) k/uL Basophils # 0.0 (0-0.2) k/uL Anisocytosis Slight Sodium 131 L (137-145) mmol/L Potassium 5.0 (3.5-5.1) mmol/L Chloride 101 (98-107) mmol/L Carbon Dioxide 20 L (22-30) mmol/L Anion Gap 10 mmol/L BUN 19 H (7-17) mg/dL Creatinine 0.79 (0.52-1.04) mg/dL Est GFR (CKD-EPI)AfAm >90 (>60 ml/min/1.73 sqM) Est GFR (CKD-EPI)NonAf >90 (>60 ml/min/1.73 sqM) Glucose 307 H (74-99) mg/dL Calcium 9.5 (8.4-10.2) mg/dL Total Bilirubin 0.5 (0.2-1.3) mg/dL AST 21 (14-36) U/L ALT 11 (4-34) U/L Alkaline Phosphatase 33 L (38-126) U/L Total Protein 5.9 L (6.3-8.2) g/dL Albumin 3.3 L (3.5-5.0) g/dL Amylase 69 (30-110) U/L Lipase 358 H (23-300) U/L Disposition Clinical Impression: Chronic abdominal pain, Migraine Disposition: HOME SELF-CARE Condition: Good Instructions (If sedation given, give patient instructions): Abdominal Pain (ED) Is patient prescribed a controlled substance at d/c from ED?: No Referrals: Isi Carolina MD [Primary Care Provider] - 1-2 days Time of Disposition: 11:21
[2022-01-03 10:25] LABS: Anisocytosis Slight; Basophils % (A) 0 %; Eosinophils # (A) 0.1 k/uL (0-0.7); Eosinophils % (A) 1 %; HGB 10.4 gm/dL (11.4-16.0); Lymphocytes # (A) 1.9 k/uL (1.0-4.8); Lymphocytes % (A) 26 %; MCH 28.3 pg (25.0-35.0); MCHC 32.5 g/dL (31.0-37.0); MCV 86.9 fL (80.0-100.0); Mean Platelet Volume 8.4; Monocytes # (A) 0.3 k/uL (0-1.0); Monocytes % (A) 4 %; Neutrophils # (A) 4.9 k/uL (1.3-7.7); Neutrophils % (A) 67 %; Platelet Count 236 k/uL (150-450); RBC 3.68 m/uL (3.80-5.40); RDW 16.2 % (11.5-15.5); WBC 7.3 k/uL (3.8-10.6)
[2022-01-03 10:42] LABS: ALT 11 U/L (4-34); African American GFR (CKD) >90 (>60 ml/min/1.73 sqM); Albumin 3.3 g/dL (3.5-5.0); Amylase 69 U/L (30-110); Anion Gap 10 mmol/L; Blood Urea Nitrogen 19 mg/dL (7-17); Calcium 9.5 mg/dL (8.4-10.2); Carbon Dioxide 20 mmol/L (22-30); Chloride 101 mmol/L (98-107); Glucose 307 mg/dL (74-99); Lipase 358 U/L (23-300); Non-African American GFR(CKD) >90 (>60 ml/min/1.73 sqM); Sodium 131 mmol/L (137-145); Total Bilirubin 0.5 mg/dL (0.2-1.3); Total Protein 5.9 g/dL (6.3-8.2)
[2022-01-03 11:04] LABS: AST 21 U/L (14-36); Alkaline Phosphatase 33 U/L (38-126)
[2022-01-03 11:34] VITALS: BP 97/73; PULSE 80
== END 2022-01-03 11:28 | disposition home or self-care (01) ==
LOC: EC 09:04
DX: G43.909 Migraine, unspecified, not intractable, without status migrainosus (principal); J45.909 Unspecified asthma, uncomplicated; E11.9 Type 2 diabetes mellitus without complications; K21.9 Gastro-esophageal reflux disease without esophagitis; F17.290 Nicotine dependence, other tobacco product, uncomplicated; Z88.8 Allergy status to other drugs, medicaments and biological substances; Z88.2 Allergy status to sulfonamides; Z88.6 Allergy status to analgesic agent; Z91.018 Allergy to other foods; Z91.040 Latex allergy status; Z91.038 Other insect allergy status; Z79.899 Other long term (current) drug therapy
CPT/HCPCS: 36415; 80053; 82150; 83690; 85025; 99284; 96374; 96361; 96375; J1200; J2765; J1885

== ENCOUNTER 2022-01-05 08:13 | Emergency (ER) | payer BC, OTHER ==
[2022-01-05 08:17] VITALS: TEMP 98
[2022-01-05] MEDS ORDERED: diphenhydrAMINE 50 MG/ML 1 ML VIAL IM STA (08:48)
[2022-01-05] MEDS ORDERED: KETOROLAC 15 MG/ML 1 ML VIAL IM STA (08:48)
[2022-01-05] MEDS ORDERED: METOCLOPRAMIDE 5 MG/ML 2 ML VIAL IM STA (08:48)
--- NOTE | 2022-01-05 08:53 | ED ---
General Adult HPI - General Chief complaint: Headache Stated complaint: Chronic pain Time Seen by Provider: 01/05/22 08:26 Source: patient, RN notes reviewed Mode of arrival: ambulatory Limitations: no limitations - History of Present Illness Initial comments: Patient is a pleasant 31-year-old female presenting to the emergency department with concerns for chronic pain. Patient does have chronic headaches, this one around 10 days ago. Patient also is chronic abdominal pain, this time occurring around 5 days ago. Symptoms are similar to chronic problems. Patient states usually she receives a cocktail of Toradol, Reglan, and Benadryl and does request this. No confusion or weakness. Patient did have an episode of nausea. - Related Data Home Medications Medication Instructions Recorded Confirmed ARIPiprazole IM SYRINGE [Abilify 400 mg IM Q30D 07/28/21 11/16/21 Maintena Syringe] Ibuprofen [Motrin] 800 mg PO Q8H PRN 11/16/21 11/16/21 Omeprazole 20 mg PO DAILY 11/16/21 11/16/21 Prochlorperazine [Compazine] 5 mg PO Q12H PRN 11/16/21 11/16/21 Propranolol HCl 20 mg PO DAILY 11/16/21 11/16/21 QUEtiapine FUMARATE [SEROquel XR] 600 mg PO HS 11/16/21 11/16/21 sitaGLIPtin [Januvia] 50 mg PO DAILY 11/16/21 11/16/21 Previous Rx's Medication Instructions Recorded Sucralfate [Carafate] 1 gm PO BID 10 Days #200 ml 11/27/21 Allergies Allergy/AdvReac Type Severity Reaction Status Date / Time bee pollen Allergy Severe Anaphylaxis Verified 01/05/22 08:17 haloperidol [From Haldol] Allergy Severe QUIT Verified 01/05/22 08:17 BREATHING haloperidol lactate Allergy Severe QUIT Verified 01/05/22 08:17 [From Haldol] BREATHING latex Allergy Severe RASH-THROAT Verified 01/05/22 08:17 CLOSES [place] Allergy Anaphylaxis Verified 01/05/22 08:17 coconut Allergy Anaphylaxis Verified 01/05/22 08:17 morphine Allergy Rash/Hives Verified 01/05/22 08:17 pineapple Allergy Anaphylaxis Verified 01/05/22 08:17 prednisone Allergy THROAT Verified 01/05/22 08:17 SWELLS spider venom Allergy Swelling Verified 01/05/22 08:17 Sulfa (Sulfonamide Allergy THROAT Verified 01/05/22 08:17 Antibiotics) SWELLS venom-wasp Allergy Swelling Verified 01/05/22 08:17 venom-wasp protein Allergy Swelling Verified 01/05/22 08:17 promethazine HCl AdvReac Severe Nausea & Verified 01/05/22 08:17 [From Phenergan] Vomiting tramadol AdvReac Severe Nausea & Verified 01/05/22 08:17 Vomiting amoxicillin AdvReac Nausea & Verified 01/05/22 08:17 Vomiting ANTS AdvReac Mild Anaphylaxis Uncoded 01/05/22 08:17 Review of Systems ROS Statement: Those systems with pertinent positive or pertinent negative responses have been documented in the HPI. ROS Other: All systems not noted in ROS Statement are negative. Constitutional: Denies: fever Eyes: Denies: eye pain ENT: Denies: ear pain Respiratory: Denies: cough Cardiovascular: Denies: chest pain Endocrine: Denies: fatigue Gastrointestinal: Reports: as per HPI Genitourinary: Denies: dysuria Musculoskeletal: Denies: back pain Skin: Denies: rash Neurological: Reports: as per HPI. Denies: weakness, confusion Past Medical History Past Medical History: Asthma, Diabetes Mellitus, GERD/Reflux Additional Past Medical History / Comment(s): migraines, degenerative disk disease, endometriosis, lupus, pancreatitis, DM2- insulin History of Any Multi-Drug Resistant Organisms: None Reported Past Surgical History: Cholecystectomy, Orthopedic Surgery Additional Past Surgical History / Comment(s): laparoscopc surgery for endometriosis, cyst removed from left foot, EGD, Past Anesthesia/Blood Transfusion Reactions: Previous Problems w/ Anesthesia Additional Past Anesthesia/Blood Transfusion Reaction / Comment(s): hard to wake up for 48-72 hours after laparoscopic surgery-was in hosp. for 3 days Past Psychological History: Anxiety, Depression, PTSD Smoking Status: Vaper Past Alcohol Use History: None Reported Past Drug Use History: None Reported - Past Family History Mother Family Medical History: No Reported History Additional Family Medical History / Comment(s): hx migraines Father Family Medical History: Coronary Artery Disease (CAD), Hypertension Additional Family Medical History / Comment(s): ddd, alcoholism & drug use General Exam Limitations: no limitations General appearance: alert, in no apparent distress Head exam: Present: atraumatic, normocephalic Eye exam: Present: normal appearance, PERRL, EOMI Neck exam: Present: normal inspection. Absent: tenderness, meningismus Respiratory exam: Present: normal lung sounds bilaterally Cardiovascular Exam: Present: regular rate, normal rhythm GI/Abdominal exam: Present: soft. Absent: distended, tenderness, guarding, rebound, rigid, pulsatile mass Extremities exam: Present: normal inspection Neurological exam: Present: alert, CN II-XII intact. Absent: motor sensory deficit Expanded Neurological exam: Present: protecting the airway Speech: Present: fluid speech Motor strength exam: RUE: 5, LUE: 5, RLE: 5, LLE: 5 Eye Response: (4) open spontaneously Motor Response: (6) obeys commands Verbal Response: (5) oriented Psychiatric exam: Present: normal affect, normal mood Skin exam: Present: normal color Course Vital Signs 01/05/22 08:15 Temperature 98 F Pulse Rate 102 H Respiratory 18 Rate Blood Pressure 116/84 O2 Sat by Pulse 100 Oximetry Disposition Clinical Impression: Chronic abdominal pain, Recurrent headache Disposition: HOME SELF-CARE Condition: Stable Instructions (If sedation given, give patient instructions): Abdominal Pain (ED), Acute Headache (ED) Additional Instructions: Please do follow-up with your primary care physician in the next day or 2 for recheck. Return for weakness, vomiting, fever, worsening or change in symptoms, or other concerns. Is patient prescribed a controlled substance at d/c from ED?: No Referrals: Isi Carolina MD [Primary Care Provider] - 1-2 days Time of Disposition: 08:53
[2022-01-05 09:58] VITALS: BP 98/68; PULSE 110; RESP 17
== END 2022-01-05 09:58 | disposition home or self-care (01) ==
LOC: EC 08:13
DX: G89.29 Other chronic pain (principal); R10.9 Unspecified abdominal pain; R51.9 Headache, unspecified; J45.909 Unspecified asthma, uncomplicated; E11.9 Type 2 diabetes mellitus without complications; K21.9 Gastro-esophageal reflux disease without esophagitis; F17.290 Nicotine dependence, other tobacco product, uncomplicated; Z79.899 Other long term (current) drug therapy; Z79.84 Long term (current) use of oral hypoglycemic drugs; Z91.030 Bee allergy status; Z88.8 Allergy status to other drugs, medicaments and biological substances; Z91.040 Latex allergy status; Z91.018 Allergy to other foods; Z88.6 Allergy status to analgesic agent; Z91.038 Other insect allergy status; Z88.2 Allergy status to sulfonamides; Z88.5 Allergy status to narcotic agent; Z88.0 Allergy status to penicillin
CPT/HCPCS: 99283; 96372; J1200; J2765; J1885

== ENCOUNTER 2022-01-11 09:20 | Emergency (ER) | payer OTHER ==
[2022-01-11 09:43] VITALS: TEMP 98.1
[2022-01-11] MEDS ORDERED: METOCLOPRAMIDE 5 MG/ML 2 ML VIAL IM PRN (11:09)
[2022-01-11] MEDS ORDERED: diphenhydrAMINE 50 MG/ML 1 ML VIAL IM STA (11:09)
[2022-01-11] MEDS: KETOROLAC 15 MG/ML 1 ML VIAL IM SCH ×2 (11:15→12:40)
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
[2022-01-11 11:52] LABS: Appearance,Urine Clear (Clear); Bilirubin,Urine Negative (Negative); Blood,Urine Negative (Negative); Color,Urine Light Yellow; Glucose,Urine (UA) 4+ (Negative); Ketones,Urine Negative (Negative); Leukocyte Esterase,Urine Negative (Negative); Nitrite,Urine Negative (Negative); PH, Urine 6.5 (5.0-8.0); Protein,Urine Negative (Negative); Specific Gravity,Urine 1.032 (1.001-1.035); Urobilinogen,Urine <2.0 mg/dL (<2.0)
[2022-01-11] MEDS ORDERED: HYDROmorphone 0.5 MG/0.5 ML SYRINGE IM STA (11:52)
[2022-01-11 11:54] LABS: Anisocytosis Slight; Basophils % (A) 0 %; Eosinophils % (A) 0 %; HCT 32.5 % (34.0-46.0); HGB 9.9 gm/dL (11.4-16.0); Hypochromasia Marked; Lymphocytes # (A) 0.6 k/uL (1.0-4.8); Lymphocytes % (A) 8 %; MCH 29.1 pg (25.0-35.0); MCHC 30.5 g/dL (31.0-37.0); Mean Platelet Volume 8.3; Monocytes # (A) 0.1 k/uL (0-1.0); Monocytes % (A) 2 %; Neutrophils # (A) 6.4 k/uL (1.3-7.7); Neutrophils % (A) 89 %; Platelet Count 295 k/uL (150-450); RBC 3.41 m/uL (3.80-5.40); RDW 16.7 % (11.5-15.5); WBC 7.2 k/uL (3.8-10.6)
[2022-01-11 11:56] LABS: ALT 18 U/L (4-34); AST 17 U/L (14-36); African American GFR (CKD) >90 (>60 ml/min/1.73 sqM); Albumin 3.5 g/dL (3.5-5.0); Alkaline Phosphatase 68 U/L (38-126); Amylase 65 U/L (30-110); Anion Gap 13 mmol/L; Blood Urea Nitrogen 24 mg/dL (7-17); Calcium 10.1 mg/dL (8.4-10.2); Carbon Dioxide 19 mmol/L (22-30); Chloride 101 mmol/L (98-107); Lipase 336 U/L (23-300); Magnesium 1.7 mg/dL (1.6-2.3); Non-African American GFR(CKD) >90 (>60 ml/min/1.73 sqM); Potassium 4.6 mmol/L (3.5-5.1); Sodium 133 mmol/L (137-145); Total Bilirubin 0.3 mg/dL (0.2-1.3)
[2022-01-11 12:04] LABS: MCV 95.4 fL (80.0-100.0)
[2022-01-11 12:07] LABS: Glucose 568 mg/dL (74-99)
[2022-01-11] MEDS ORDERED: INSULIN REGULAR 100 UNIT/ML VIAL (IM/SQ) SQ ONE (12:12)
[2022-01-11] MEDS ORDERED: INSULIN REGULAR 100 UNIT/ML VIAL (IV) IV ONE ×2 (12:17→13:41)
[2022-01-11] MEDS ORDERED: SODIUM CHLORIDE 0.9% 1,000 ML IV STA (12:17)
[2022-01-11] MEDS ORDERED: HYDROmorphone 0.5 MG/0.5 ML SYRINGE IVP STA (12:18)
[2022-01-11] MEDS ORDERED: cefTRIAXone IN SWFI 1,000 MG/10 ML SYRINGE IVP STA (13:28)
[2022-01-11] MEDS ORDERED: AZITHROMYCIN 500 MG TAB PO STA (13:28)
[2022-01-11 13:43] LABS: Glucose,Whole Blood 360 mg/dL (70-110)
[2022-01-11 15:38] VITALS: BP 148/86; PULSE 68; RESP 16
== END 2022-01-11 15:40 | disposition home or self-care (01) ==
LOC: EC 09:20
DX: E11.65 Type 2 diabetes mellitus with hyperglycemia (principal); R51.9 Headache, unspecified; J45.909 Unspecified asthma, uncomplicated; K21.9 Gastro-esophageal reflux disease without esophagitis; F17.290 Nicotine dependence, other tobacco product, uncomplicated; Z79.899 Other long term (current) drug therapy; Z79.84 Long term (current) use of oral hypoglycemic drugs; Z91.030 Bee allergy status; Z88.8 Allergy status to other drugs, medicaments and biological substances; Z91.040 Latex allergy status; Z91.018 Allergy to other foods; Z88.6 Allergy status to analgesic agent; Z91.038 Other insect allergy status; Z88.2 Allergy status to sulfonamides; Z88.5 Allergy status to narcotic agent; Z88.0 Allergy status to penicillin
CPT/HCPCS: 36415; 80053; 87491; 82150; 82009; 83690; 83735; 85025; 81003; 99284; 96374; 96375; 96361; 96372; J1200; J2765; J0696; J1885; J1170

== ENCOUNTER 2022-01-24 09:22 | Emergency (ER) | payer OTHER ==
[2022-01-24 09:25] VITALS: RESP 18
[2022-01-24] MEDS ORDERED: SODIUM CHLORIDE 0.9% 1,000 ML IV STA (10:05)
[2022-01-24] MEDS ORDERED: ONDANSETRON 4 MG/2 ML VIAL IVP STA (10:05)
[2022-01-24] MEDS ORDERED: HYDROmorphone 1 MG/ML 1 ML SYRINGE IVP STA (10:05)
[2022-01-24] MEDS ORDERED: ONDANSETRON ODT 4 MG TAB PO STA (10:35)
[2022-01-24] MEDS ORDERED: HYDROmorphone 1 MG/ML 1 ML SYRINGE IM STA (10:35)
[2022-01-24 10:53] LABS: ALT 17 U/L (4-34); AST 18 U/L (14-36); African American GFR (CKD) >90 (>60 ml/min/1.73 sqM); Albumin 3.8 g/dL (3.5-5.0); Alkaline Phosphatase 54 U/L (38-126); Anion Gap 11 mmol/L; Blood Urea Nitrogen 17 mg/dL (7-17); Calcium 10.7 mg/dL (8.4-10.2); Carbon Dioxide 24 mmol/L (22-30); Chloride 102 mmol/L (98-107); Glucose 148 mg/dL (74-99); Lipase 309 U/L (23-300); Non-African American GFR(CKD) 87 (>60 ml/min/1.73 sqM); Potassium 4.4 mmol/L (3.5-5.1); Sodium 137 mmol/L (137-145); Total Bilirubin 0.4 mg/dL (0.2-1.3); Total Protein 6.6 g/dL (6.3-8.2)
[2022-01-24 10:54] LABS: Basophils % (A) 1 %; Eosinophils # (A) 0.1 k/uL (0-0.7); Eosinophils % (A) 3 %; HCT 35.5 % (34.0-46.0); HGB 11.6 gm/dL (11.4-16.0); Lymphocytes # (A) 2.1 k/uL (1.0-4.8); Lymphocytes % (A) 44 %; MCH 29.3 pg (25.0-35.0); MCHC 32.7 g/dL (31.0-37.0); MCV 89.7 fL (80.0-100.0); Mean Platelet Volume 8.3; Monocytes # (A) 0.3 k/uL (0-1.0); Monocytes % (A) 6 %; Neutrophils # (A) 2.1 k/uL (1.3-7.7); Neutrophils % (A) 43 %; Platelet Count 301 k/uL (150-450); RBC 3.96 m/uL (3.80-5.40); WBC 4.8 k/uL (3.8-10.6)
--- NOTE | 2022-01-24 11:11 | ED ---
Abdominal Pain HPI - General Chief Complaint: Abdominal Pain Stated Complaint: abd pain Time Seen by Provider: 01/24/22 09:50 Source: patient Mode of arrival: ambulatory Limitations: no limitations - History of Present Illness Initial Comments: 31 year-old female patient presents for evaluation of upper abdominal pain and migraine. She is well known to our department for similar complaints. She was recently admitted to [facility] for pancreatitis. States her pain started again yesterday. She has had nausea and vomiting. Denies consti pation or diarrhea. Unable to eat or drink. States migraine is typical for her, no new symptoms, this is not the worst headache of her life. Patient denies any recent rash, fever, chills, cough, shortness of breath, chest pain, back pain, numbness, tingling, dizziness, weakness, hematuria, dysuria, urinary urgency, urinary frequency, headache, visual changes, or any other complaints. - Related Data Home Medications Medication Instructions Recorded Confirmed ARIPiprazole IM SYRINGE [Abilify 400 mg IM Q30D 07/28/21 11/16/21 Maintena Syringe] Ibuprofen [Motrin] 800 mg PO Q8H PRN 11/16/21 11/16/21 Omeprazole 20 mg PO DAILY 11/16/21 11/16/21 Prochlorperazine [Compazine] 5 mg PO Q12H PRN 11/16/21 11/16/21 Propranolol HCl 20 mg PO DAILY 11/16/21 11/16/21 QUEtiapine FUMARATE [SEROquel XR] 600 mg PO HS 11/16/21 11/16/21 sitaGLIPtin [Januvia] 50 mg PO DAILY 11/16/21 11/16/21 Previous Rx's Medication Instructions Recorded Sucralfate [Carafate] 1 gm PO BID 10 Days #200 ml 11/27/21 Allergies Allergy/AdvReac Type Severity Reaction Status Date / Time bee pollen Allergy Severe Anaphylaxis Verified 01/24/22 09:23 haloperidol [From Haldol] Allergy Severe QUIT Verified 01/24/22 09:23 BREATHING haloperidol lactate Allergy Severe QUIT Verified 01/24/22 09:23 [From Haldol] BREATHING latex Allergy Severe RASH-THROAT Verified 01/24/22 09:23 CLOSES [place] Allergy Anaphylaxis Verified 01/24/22 09:23 coconut Allergy Anaphylaxis Verified 01/24/22 09:23 morphine Allergy Rash/Hives Verified 01/24/22 09:23 pineapple Allergy Anaphylaxis Verified 01/24/22 09:23 prednisone Allergy THROAT Verified 01/24/22 09:23 SWELLS spider venom Allergy Swelling Verified 01/24/22 09:23 Sulfa (Sulfonamide Allergy THROAT Verified 01/24/22 09:23 Antibiotics) SWELLS venom-wasp Allergy Swelling Verified 01/24/22 09:23 venom-wasp protein Allergy Swelling Verified 01/24/22 09:23 promethazine HCl AdvReac Severe Nausea & Verified 01/24/22 09:23 [From Phenergan] Vomiting tramadol AdvReac Severe Nausea & Verified 01/24/22 09:23 Vomiting amoxicillin AdvReac Nausea & Verified 01/24/22 09:23 Vomiting ANTS AdvReac Mild Anaphylaxis Uncoded 01/24/22 09:23 Review of Systems ROS Statement: Those systems with pertinent positive or pertinent negative responses have been documented in the HPI. ROS Other: All systems not noted in ROS Statement are negative. Past Medical History Past Medical History: Asthma, Diabetes Mellitus, GERD/Reflux Additional Past Medical History / Comment(s): migraines, degenerative disk disease, endometriosis, lupus, pancreatitis, DM2- insulin History of Any Multi-Drug Resistant Organisms: None Reported Past Surgical History: Cholecystectomy, Orthopedic Surgery Additional Past Surgical History / Comment(s): laparoscopc surgery for endometriosis, cyst removed from left foot, EGD, Past Anesthesia/Blood Transfusion Reactions: Previous Problems w/ Anesthesia Additional Past Anesthesia/Blood Transfusion Reaction / Comment(s): hard to wake up for 48-72 hours after laparoscopic surgery-was in hosp. for 3 days Past Psychological History: Anxiety, Depression, PTSD Smoking Status: Vaper Past Alcohol Use History: None Reported Past Drug Use History: None Reported - Past Family History Mother Family Medical History: No Reported History Additional Family Medical History / Comment(s): hx migraines Father Family Medical History: Coronary Artery Disease (CAD), Hypertension Additional Family Medical History / Comment(s): ddd, alcoholism & drug use General Exam Limitations: no limitations General appearance: alert, in no apparent distress, other (This is a well- developed, well-nourished adult female in no acute distress.) Eye exam: Present: normal appearance, PERRL, EOMI. Absent: scleral icterus, c onjunctival injection, periorbital swelling ENT exam: Present: normal exam, normal oropharynx, mucous membranes moist Respiratory exam: Present: normal lung sounds bilaterally. Absent: respiratory distress, wheezes, rales, rhonchi, stridor Cardiovascular Exam: Present: normal rhythm, tachycardia, normal heart sounds. Absent: systolic murmur, diastolic murmur, rubs, gallop, clicks GI/Abdominal exam: Present: soft, tenderness (Right upper quadrant, midepigastric, left upper quadrant.), normal bowel sounds. Absent: distended, guarding, rebound, rigid Neurological exam: Present: alert, oriented X3, CN II-XII intact Psychiatric exam: Present: normal affect, normal mood Skin exam: Present: warm, dry, intact, normal color. Absent: rash Course Vital Signs 01/24/22 09:23 Temperature 97.4 F L Pulse Rate 124 H Respiratory 18 Rate Blood Pressure 110/77 O2 Sat by Pulse 100 Oximetry Medical Decision Making - Medical Decision Making 31 year-old female patient presented for evaluation of migraine and abdominal pain. Physical exam revealed no neurologic deficits and upper abdominal tenderness. Labs reviewed and showed lipase around 300. Mildly elevated blood glucose. She was given pain medication and nausea medication. She will be discharged to follow up outpatient. She is agreeable to discharge. Return parameters discussed in detail. My attending is Dr. Rossi. - Lab Data Result diagrams: 01/24/22 10:01/24/22 10: Lab Results 01/24/22 01/24/22 01/24/22 Range/Units 10: 10: 10:27 WBC 4.8 (3.8-10.6) k/uL RBC 3.96 (3.80-5.40) m/uL Hgb 11.6 (11.4-16.0) gm/dL Hct 35.5 (34.0-46.0) % MCV 89.7 (80.0-100.0) fL MCH 29.3 (25.0-35.0) pg MCHC 32.7 (31.0-37.0) g/dL RDW 16.0 H (11.5-15.5) % Plt Count 301 (150-450) k/uL MPV 8.3 Neutrophils % 43 % Lymphocytes % 44 % Monocytes % 6 % Eosinophils % 3 % Basophils % 1 % Neutrophils # 2.1 (1.3-7.7) k/uL Lymphocytes # 2.1 (1.0-4.8) k/uL Monocytes # 0.3 (0-1.0) k/uL Eosinophils # 0.1 (0-0.7) k/uL Basophils # 0.0 (0-0.2) k/uL Sodium 137 (137-145) mmol/L Potassium 4.4 (3.5-5.1) mmol/L Chloride 102 (98-107) mmol/L Carbon Dioxide 24 (22-30) mmol/L Anion Gap 11 mmol/L BUN 17 (7-17) mg/dL Creatinine 0.90 (0.52-1.04) mg/dL Est GFR (CKD-EPI)AfAm >90 (>60 ml/min/1.73 sqM) Est GFR (CKD-EPI)NonAf 87 (>60 ml/min/1.73 sqM) Glucose 148 H (74-99) mg/dL Plasma Lactic Acid Aurelio 1.1 (0.7-2.0) mmol/L Calcium 10.7 H (8.4-10.2) mg/dL Total Bilirubin 0.4 (0.2-1.3) mg/dL AST 18 (14-36) U/L ALT 17 (4-34) U/L Alkaline Phosphatase 54 (38-126) U/L Total Protein 6.6 (6.3-8.2) g/dL Albumin 3.8 (3.5-5.0) g/dL Lipase 309 H (23-300) U/L Urine Color Urine Appearance (Clear) Urine pH (5.0-8.0) Ur Specific [place] (1.001-1.035) Urine Protein (Negative) Urine Glucose (UA) (Negative) Urine Ketones (Negative) Urine Blood (Negative) Urine Nitrite (Negative) Urine Bilirubin (Negative) Urine Urobilinogen (<2.0) mg/dL Ur Leukocyte Esterase (Negative) Urine HCG, Qual (Not Detectd) 01/24/22 01/24/22 Range/Units 11:34 11:34 WBC (3.8-10.6) k/uL RBC (3.80-5.40) m/uL Hgb (11.4-16.0) gm/dL Hct (34.0-46.0) % MCV (80.0-100.0) fL MCH (25.0-35.0) pg MCHC (31.0-37.0) g/dL RDW (11.5-15.5) % Plt Count (150-450) k/uL MPV Neutrophils % % Lymphocytes % % Monocytes % % Eosinophils % % Basophils % % Neutrophils # (1.3-7.7) k/uL Lymphocytes # (1.0-4.8) k/uL Monocytes # (0-1.0) k/uL Eosinophils # (0-0.7) k/uL Basophils # (0-0.2) k/uL Sodium (137-145) mmol/L Potassium (3.5-5.1) mmol/L Chloride (98-107) mmol/L Carbon Dioxide (22-30) mmol/L Anion Gap mmol/L BUN (7-17) mg/dL Creatinine (0.52-1.04) mg/dL Est GFR (CKD-EPI)AfAm (>60 ml/min/1.73 sqM) Est GFR (CKD-EPI)NonAf (>60 ml/min/1.73 sqM) Glucose (74-99) mg/dL Plasma Lactic Acid Aurelio (0.7-2.0) mmol/L Calcium (8.4-10.2) mg/dL Total Bilirubin (0.2-1.3) mg/dL AST (14-36) U/L ALT (4-34) U/L Alkaline Phosphatase (38-126) U/L Total Protein (6.3-8.2) g/dL Albumin (3.5-5.0) g/dL Lipase (23-300) U/L Urine Color Light Yellow Urine Appearance Clear (Clear) Urine pH 6.5 (5.0-8.0) Ur Specific Baldwin 1.016 (1.001-1.035) Urine Protein Negative (Negative) Urine Glucose (UA) 1+ H (Negative) Urine Ketones Negative (Negative) Urine Blood Negative (Negative) Urine Nitrite Negative (Negative) Urine Bilirubin Negative (Negative) Urine Urobilinogen <2.0 (<2.0) mg/dL Ur Leukocyte Esterase Negative (Negative) Urine HCG, Qual Not Detected (Not Detectd) Disposition Clinical Impression: Abdominal pain, Migraine headache Disposition: HOME SELF-CARE Condition: Good Instructions (If sedation given, give patient instructions): Migraine Headache (ED), Abdominal Pain (ED) Additional Instructions: Start with clear liquid diet and advance as tolerated. Take nausea medication one hour prior to trying to eat. Continue home medications. Follow-up with your physician as planned. Return to the emergency department for any new, worsening, or concerning symptoms. Is patient prescribed a controlled substance at d/c from ED?: No Referrals: Isi Carolina MD [Primary Care Provider] - 1-2 days Time of Disposition: 12:28
[2022-01-24 12:12] LABS: Appearance,Urine Clear (Clear); Bilirubin,Urine Negative (Negative); Blood,Urine Negative (Negative); Color,Urine Light Yellow; Glucose,Urine (UA) 1+ (Negative); Ketones,Urine Negative (Negative); Leukocyte Esterase,Urine Negative (Negative); Nitrite,Urine Negative (Negative); PH, Urine 6.5 (5.0-8.0); Protein,Urine Negative (Negative); Specific Gravity,Urine 1.016 (1.001-1.035); Urobilinogen,Urine <2.0 mg/dL (<2.0)
[2022-01-24] MEDS ORDERED: diphenhydrAMINE 50 MG CAP PO STA (12:28)
[2022-01-24 13:43] VITALS: BP 100/64; PULSE 103; TEMP 98.6
== END 2022-01-24 12:40 | disposition home or self-care (01) ==
LOC: EC 09:22
DX: G43.909 Migraine, unspecified, not intractable, without status migrainosus (principal); R10.10 Upper abdominal pain, unspecified; J45.909 Unspecified asthma, uncomplicated; E11.9 Type 2 diabetes mellitus without complications; K21.9 Gastro-esophageal reflux disease without esophagitis; F17.290 Nicotine dependence, other tobacco product, uncomplicated; Z88.6 Allergy status to analgesic agent; Z91.040 Latex allergy status; Z91.030 Bee allergy status; Z88.8 Allergy status to other drugs, medicaments and biological substances; Z88.2 Allergy status to sulfonamides; Z88.1 Allergy status to other antibiotic agents; Z88.0 Allergy status to penicillin; Z79.899 Other long term (current) drug therapy
CPT/HCPCS: 36415; 80053; 83605; 83690; 85025; 81003; 81025; 96372; 99284; J1170

== ENCOUNTER 2022-01-26 09:28 | Emergency (ER) | payer OTHER ==
[2022-01-26 09:34] VITALS: RESP 18; TEMP 97.6
[2022-01-26] MEDS ORDERED: KETOROLAC 15 MG/ML 1 ML VIAL IVP STA (09:40)
[2022-01-26] MEDS ORDERED: ONDANSETRON 4 MG/2 ML VIAL IVP STA (09:40)
[2022-01-26] MEDS ORDERED: diphenhydrAMINE 50 MG/ML 1 ML VIAL IVP STA (09:40)
[2022-01-26] MEDS ORDERED: PANTOPRAZOLE 40 MG/10 ML VIAL IVP STA (09:40)
--- NOTE | 2022-01-26 10:21 | ED ---
Abdominal Pain HPI - General Chief Complaint: Abdominal Pain Stated Complaint: Abd pain,vomiting Time Seen by Provider: 01/26/22 09:40 Source: patient, RN notes reviewed Mode of arrival: ambulatory - History of Present Illness Initial Comments: This is a 31-year-old female who is very well known to this emergency department, who presents today for abdominal pain. She was here 2 days ago as well, and states that her pain never got better. Also reports a headache with associated nausea and vomiting. Denies any changes in bowel or urinary habits. Denies any fevers, chills, sore throat, cough, dyspnea, chest pain, palpitations, diarrhea, and back pain. MD Complaint: abdominal pain Associated Symptoms: nausea, vomiting - Related Data Patient : No Home Medications Medication Instructions Recorded Confirmed ARIPiprazole IM SYRINGE [Abilify 400 mg IM Q30D 07/28/21 11/16/21 Maintena Syringe] Ibuprofen [Motrin] 800 mg PO Q8H PRN 11/16/21 11/16/21 Omeprazole 20 mg PO DAILY 11/16/21 11/16/21 Prochlorperazine [Compazine] 5 mg PO Q12H PRN 11/16/21 11/16/21 Propranolol HCl 20 mg PO DAILY 11/16/21 11/16/21 QUEtiapine FUMARATE [SEROquel XR] 600 mg PO HS 11/16/21 11/16/21 sitaGLIPtin [Januvia] 50 mg PO DAILY 11/16/21 11/16/21 Previous Rx's Medication Instructions Recorded Sucralfate [Carafate] 1 gm PO BID 10 Days #200 ml 11/27/21 Allergies Allergy/AdvReac Type Severity Reaction Status Date / Time bee pollen Allergy Severe Anaphylaxis Verified 01/26/22 09:32 haloperidol [From Haldol] Allergy Severe QUIT Verified 01/26/22 09:32 BREATHING haloperidol lactate Allergy Severe QUIT Verified 01/26/22 09:32 [From Haldol] BREATHING latex Allergy Severe RASH-THROAT Verified 01/26/22 09:32 CLOSES [place] Allergy Anaphylaxis Verified 01/26/22 09:32 coconut Allergy Anaphylaxis Verified 01/26/22 09:32 morphine Allergy Rash/Hives Verified 01/26/22 09:32 pineapple Allergy Anaphylaxis Verified 01/26/22 09:32 prednisone Allergy THROAT Verified 01/26/22 09:32 SWELLS spider venom Allergy Swelling Verified 01/26/22 09:32 Sulfa (Sulfonamide Allergy THROAT Verified 01/26/22 09:32 Antibiotics) SWELLS venom-wasp Allergy Swelling Verified 01/26/22 09:32 venom-wasp protein Allergy Swelling Verified 01/26/22 09:32 promethazine HCl AdvReac Severe Nausea & Verified 01/26/22 09:32 [From Phenergan] Vomiting tramadol AdvReac Severe Nausea & Verified 01/26/22 09:32 Vomiting amoxicillin AdvReac Nausea & Verified 01/26/22 09:32 Vomiting ANTS AdvReac Mild Anaphylaxis Uncoded 01/26/22 09:32 Review of Systems ROS Statement: Those systems with pertinent positive or pertinent negative responses have been documented in the HPI. ROS Other: All systems not noted in ROS Statement are negative. Past Medical History Past Medical History: Asthma, Diabetes Mellitus, GERD/Reflux Additional Past Medical History / Comment(s): migraines, degenerative disk dise ase, endometriosis, lupus, pancreatitis, DM2- insulin History of Any Multi-Drug Resistant Organisms: None Reported Past Surgical History: Cholecystectomy, Orthopedic Surgery Additional Past Surgical History / Comment(s): laparoscopc surgery for endometriosis, cyst removed from left foot, EGD, Past Anesthesia/Blood Transfusion Reactions: Previous Problems w/ Anesthesia Additional Past Anesthesia/Blood Transfusion Reaction / Comment(s): hard to wake up for 48-72 hours after laparoscopic surgery-was in hosp. for 3 days Past Psychological History: Anxiety, Depression, PTSD Smoking Status: Vaper Past Alcohol Use History: None Reported Past Drug Use History: None Reported - Past Family History Mother Family Medical History: No Reported History Additional Family Medical History / Comment(s): hx migraines Father Family Medical History: Coronary Artery Disease (CAD), Hypertension Additional Family Medical History / Comment(s): ddd, alcoholism & drug use General Exam General appearance: alert, in no apparent distress Head exam: Present: atraumatic, normocephalic, normal inspection Respiratory exam: Present: normal lung sounds bilaterally. Absent: respiratory distress, wheezes, rales, rhonchi, stridor Cardiovascular Exam: Present: regular rate, normal rhythm, normal heart sounds. Absent: systolic murmur, diastolic murmur, rubs, gallop, clicks GI/Abdominal exam: Present: soft, tenderness (diffuse), normal bowel sounds. Absent: distended, guarding, rebound, rigid Neurological exam: Present: alert, oriented X3, CN II-XII intact Psychiatric exam: Present: normal affect, normal mood Skin exam: Present: warm, dry, intact, normal color. Absent: rash Course Vital Signs 01/26/22 01/26/22 09:32 11:29 Temperature 97.6 F Pulse Rate 115 H 101 H Respiratory 18 18 Rate Blood Pressure 103/73 105/76 O2 Sat by Pulse 100 100 Oximetry Medical Decision Making - Medical Decision Making This is a 31-year-old female who presents to the emergency department for abdominal pain. Lab work does reveal hyperglycemia, as is typical with the patient due to her diabetes mellitus and poor dietary habits. Lab work was otherwise nonactionable. Urinalysis negative for signs of infection. UDS positive for opiates and tricyclic antidepressants, both of which are expected due to pain medication she receives in the emergency department and her antidepressant medication that she takes at home. Patient's pain and nausea were controlled the emergency department. Patient discharged home in stable condition. Return precautions reviewed in depth, the patient is instructed to return to the emergency department with any new, worsening, or concerning symptoms. Patient verbalized understanding. This case was discussed in detail with the attending ED physician. Presentation, findings, and treatment plan discussed in detail as well. - Lab Data Result diagrams: 01/26/22 09:45 01/26/22 09:45 Lab Results 01/26/22 01/26/22 01/26/22 Range/Units 09:45 09:45 09:45 WBC 4.7 (3.8-10.6) k/uL RBC 3.42 L (3.80-5.40) m/uL Hgb 10.3 L (11.4-16.0) gm/dL Hct 31.0 L (34.0-46.0) % MCV 90.4 (80.0-100.0) fL MCH 30.0 (25.0-35.0) pg MCHC 33.2 (31.0-37.0) g/dL RDW 15.8 H (11.5-15.5) % Plt Count 309 (150-450) k/uL MPV 8.2 Neutrophils % 59 % Lymphocytes % 30 % Monocytes % 5 % Eosinophils % 2 % Basophils % 1 % Neutrophils # 2.8 (1.3-7.7) k/uL Lymphocytes # 1.4 (1.0-4.8) k/uL Monocytes # 0.3 (0-1.0) k/uL Eosinophils # 0.1 (0-0.7) k/uL Basophils # 0.0 (0-0.2) k/uL Sodium (137-145) mmol/L Potassium (3.5-5.1) mmol/L Chloride (98-107) mmol/L Carbon Dioxide (22-30) mmol/L Anion Gap mmol/L BUN (7-17) mg/dL Creatinine (0.52-1.04) mg/dL Est GFR (CKD-EPI)AfAm (>60 ml/min/1.73 sqM) Est GFR (CKD-EPI)NonAf (>60 ml/min/1.73 sqM) Glucose (74-99) mg/dL Calcium (8.4-10.2) mg/dL Total Bilirubin (0.2-1.3) mg/dL AST (14-36) U/L ALT (4-34) U/L Alkaline Phosphatase (38-126) U/L Total Protein (6.3-8.2) g/dL Albumin (3.5-5.0) g/dL Amylase (30-110) U/L Lipase (23-300) U/L Urine Color Light Yellow Urine Appearance Cloudy H (Clear) Urine pH 6.0 (5.0-8.0) Ur Specific [place] 1.012 (1.001-1.035) Urine Protein Negative (Negative) Urine Glucose (UA) 1+ H (Negative) Urine Ketones Negative (Negative) Urine Blood Negative (Negative) Urine Nitrite Negative (Negative) Urine Bilirubin Negative (Negative) Urine Urobilinogen <2.0 (<2.0) mg/dL Ur Leukocyte Esterase Moderate H (Negative) Urine RBC 1 (0-5) /hpf Urine WBC 5 (0-5) /hpf Ur Squamous Epith Cells 7 H (0-4) /hpf Urine Bacteria Moderate H (None) /hpf Urine Mucus Rare H (None) /hpf Urine HCG, Qual Not Detected (Not Detectd) Urine Opiates Screen (NotDetected) Ur Oxycodone Screen (NotDetected) Urine Methadone Screen (NotDetected) Ur Propoxyphene Screen (NotDetected) Ur Barbiturates Screen (NotDetected) U Tricyclic Antidepress (NotDetected) Ur Phencyclidine Scrn (NotDetected) Ur Amphetamines Screen (NotDetected) U Methamphetamines Scrn (NotDetected) U Benzodiazepines Scrn (NotDetected) Urine Cocaine Screen (NotDetected) U Marijuana (THC) Screen (NotDetected) 01/26/22 01/26/22 Range/Units 09:45 09:45 WBC (3.8-10.6) k/uL RBC (3.80-5.40) m/uL Hgb (11.4-16.0) gm/dL Hct (34.0-46.0) % MCV (80.0-100.0) fL MCH (25.0-35.0) pg MCHC (31.0-37.0) g/dL RDW (11.5-15.5) % Plt Count (150-450) k/uL MPV Neutrophils % % Lymphocytes % % Monocytes % % Eosinophils % % Basophils % % Neutrophils # (1.3-7.7) k/uL Lymphocytes # (1.0-4.8) k/uL Monocytes # (0-1.0) k/uL Eosinophils # (0-0.7) k/uL Basophils # (0-0.2) k/uL Sodium 134 L (137-145) mmol/L Potassium 4.6 (3.5-5.1) mmol/L Chloride 105 (98-107) mmol/L Carbon Dioxide 21 L (22-30) mmol/L Anion Gap 8 mmol/L BUN 20 H (7-17) mg/dL Creatinine 0.78 (0.52-1.04) mg/dL Est GFR (CKD-EPI)AfAm >90 (>60 ml/min/1.73 sqM) Est GFR (CKD-EPI)NonAf >90 (>60 ml/min/1.73 sqM) Glucose 243 H (74-99) mg/dL Calcium 9.9 (8.4-10.2) mg/dL Total Bilirubin 0.3 (0.2-1.3) mg/dL AST 15 (14-36) U/L ALT 17 (4-34) U/L Alkaline Phosphatase 57 (38-126) U/L Total Protein 5.8 L (6.3-8.2) g/dL Albumin 3.3 L (3.5-5.0) g/dL Amylase 70 (30-110) U/L Lipase 241 (23-300) U/L Urine Color Urine Appearance (Clear) Urine pH (5.0-8.0) Ur Specific [place] (1.001-1.035) Urine Protein (Negative) Urine Glucose (UA) (Negative) Urine Ketones (Negative) Urine Blood (Negative) Urine Nitrite (Negative) Urine Bilirubin (Negative) Urine Urobilinogen (<2.0) mg/dL Ur Leukocyte Esterase (Negative) Urine RBC (0-5) /hpf Urine WBC (0-5) /hpf Ur Squamous Epith Cells (0-4) /hpf Urine Bacteria (None) /hpf Urine Mucus (None) /hpf Urine HCG, Qual (Not Detectd) Urine Opiates Screen Detected H (NotDetected) Ur Oxycodone Screen Not Detected (NotDetected) Urine Methadone Screen Not Detected (NotDetected) Ur Propoxyphene Screen Not Detected (NotDetected) Ur Barbiturates Screen Not Detected (NotDetected) U Tricyclic Antidepress Detected H (NotDetected) Ur Phencyclidine Scrn Not Detected (NotDetected) Ur Amphetamines Screen Not Detected (NotDetected) U Methamphetamines Scrn Not Detected (NotDetected) U Benzodiazepines Scrn Not Detected (NotDetected) Urine Cocaine Screen Not Detected (NotDetected) U Marijuana (THC) Screen Not Detected (NotDetected) Disposition Clinical Impression: Chronic abdominal pain Disposition: HOME SELF-CARE Instructions (If sedation given, give patient instructions): Abdominal Pain (ED) Additional Instructions: Return to the emergency department with any new, worsening, or concerning symptoms. Follow up with your primary care provider in 1-2 days. Is patient prescribed a controlled substance at d/c from ED?: No Referrals: Isi Carolina MD [Primary Care Provider] - 1-2 days
[2022-01-26 10:34] LABS: ALT 17 U/L (4-34); AST 15 U/L (14-36); African American GFR (CKD) >90 (>60 ml/min/1.73 sqM); Albumin 3.3 g/dL (3.5-5.0); Alkaline Phosphatase 57 U/L (38-126); Amylase 70 U/L (30-110); Anion Gap 8 mmol/L; Blood Urea Nitrogen 20 mg/dL (7-17); Calcium 9.9 mg/dL (8.4-10.2); Carbon Dioxide 21 mmol/L (22-30); Chloride 105 mmol/L (98-107); Glucose 243 mg/dL (74-99); Lipase 241 U/L (23-300); Non-African American GFR(CKD) >90 (>60 ml/min/1.73 sqM); Potassium 4.6 mmol/L (3.5-5.1); Sodium 134 mmol/L (137-145); Total Bilirubin 0.3 mg/dL (0.2-1.3); Total Protein 5.8 g/dL (6.3-8.2)
[2022-01-26 10:48] LABS: Appearance,Urine Cloudy (Clear); Bacteria,Urine Moderate /hpf; Bilirubin,Urine Negative (Negative); Blood,Urine Negative (Negative); Color,Urine Light Yellow; Glucose,Urine (UA) 1+ (Negative); Ketones,Urine Negative (Negative); Leukocyte Esterase,Urine Moderate (Negative); Mucus,Urine Rare /hpf; Nitrite,Urine Negative (Negative); Protein,Urine Negative (Negative); RBC,Urine 1 /hpf (0-5); Specific Gravity,Urine 1.012 (1.001-1.035); Squamous Epithelial Cell,Urine 7 /hpf (0-4); Urobilinogen,Urine <2.0 mg/dL (<2.0); WBC,Urine 5 /hpf (0-5)
[2022-01-26 10:54] LABS: Basophils % (A) 1 %; Eosinophils # (A) 0.1 k/uL (0-0.7); Eosinophils % (A) 2 %; HGB 10.3 gm/dL (11.4-16.0); Lymphocytes # (A) 1.4 k/uL (1.0-4.8); Lymphocytes % (A) 30 %; MCHC 33.2 g/dL (31.0-37.0); MCV 90.4 fL (80.0-100.0); Mean Platelet Volume 8.2; Monocytes # (A) 0.3 k/uL (0-1.0); Monocytes % (A) 5 %; Neutrophils # (A) 2.8 k/uL (1.3-7.7); Neutrophils % (A) 59 %; Platelet Count 309 k/uL (150-450); RBC 3.42 m/uL (3.80-5.40); RDW 15.8 % (11.5-15.5); WBC 4.7 k/uL (3.8-10.6)
[2022-01-26] MEDS ORDERED: HYDROmorphone 0.5 MG/0.5 ML SYRINGE IVP STA (11:16)
[2022-01-26 11:27] LABS: Amphetamine Screen,Urine Not Detected (NotDetected); Barbiturate Screen,Urine Not Detected (NotDetected); Benzodiazepines Screen,Urine Not Detected (NotDetected); Cocaine Screen,Urine Not Detected (NotDetected); Methadone Screen, Urine Not Detected (NotDetected); Opiate Screen,Urine Detected (NotDetected); Oxycodone Screen, Urine Not Detected (NotDetected); Phencyclidine Screen,Urine Not Detected (NotDetected); Tricyclic Antidepressant,Urine Detected (NotDetected); Urn Cannabinoid Scrn Not Detected (NotDetected)
[2022-01-26 11:31] VITALS: BP 105/76; PULSE 101
== END 2022-01-26 11:50 | disposition home or self-care (01) ==
LOC: EC 09:28
DX: R10.9 Unspecified abdominal pain (principal); G89.29 Other chronic pain; J45.909 Unspecified asthma, uncomplicated; E11.9 Type 2 diabetes mellitus without complications; K21.9 Gastro-esophageal reflux disease without esophagitis; F17.290 Nicotine dependence, other tobacco product, uncomplicated; Z79.899 Other long term (current) drug therapy; Z88.0 Allergy status to penicillin; Z88.5 Allergy status to narcotic agent; Z88.2 Allergy status to sulfonamides; Z88.6 Allergy status to analgesic agent; Z91.018 Allergy to other foods; Z91.040 Latex allergy status; Z88.8 Allergy status to other drugs, medicaments and biological substances; Z91.038 Other insect allergy status
CPT/HCPCS: 96374; 96375; 99284; 36415; 80053; 82150; 83690; 85025; 81001; 81025; 80306; J1200; J2405; J1885; C9113; J1170

== ENCOUNTER 2022-01-28 06:19 | Emergency (ER) | payer OTHER ==
[2022-01-28] MEDS ORDERED: diphenhydrAMINE 50 MG/ML 1 ML VIAL IM STA (06:35)
[2022-01-28] MEDS ORDERED: TRIMETHOBENZAMIDE 100 MG/ML 2 ML VIAL IM STA (06:35)
[2022-01-28] MEDS ORDERED: KETOROLAC 15 MG/ML 1 ML VIAL IM STA (06:35)
--- NOTE | 2022-01-28 06:40 | ED ---
Abdominal Pain HPI - General Chief Complaint: Abdominal Pain Stated Complaint: Abdominal Pain, Vomiting Time Seen by Provider: 01/28/22 06:22 Source: patient, RN notes reviewed Mode of arrival: ambulatory Limitations: no limitations - History of Present Illness Initial Comments: This a 31-year-old female presents emergency Department chief complaint of c hronic abdominal pain, headache. Patient to multiple recent ER visits for similar complaints. Patient states she had an episode of vomiting this morning. Patient complains of upper abdominal pain which is been chronic no acute changes. Denies any fevers or chills no chest pain. She states she has developed a migraine headache which is also a recurrent issue for patient. Patient denies any dysuria, hematuria patient denies any back pain no flank pain patient offers no complaints. - Related Data Home Medications Medication Instructions Recorded Confirmed ARIPiprazole IM SYRINGE [Abilify 400 mg IM Q30D 07/28/21 11/16/21 Maintena Syringe] Ibuprofen [Motrin] 800 mg PO Q8H PRN 11/16/21 11/16/21 Omeprazole 20 mg PO DAILY 11/16/21 11/16/21 Prochlorperazine [Compazine] 5 mg PO Q12H PRN 11/16/21 11/16/21 Propranolol HCl 20 mg PO DAILY 11/16/21 11/16/21 QUEtiapine FUMARATE [SEROquel XR] 600 mg PO HS 11/16/21 11/16/21 sitaGLIPtin [Januvia] 50 mg PO DAILY 11/16/21 11/16/21 Previous Rx's Medication Instructions Recorded Sucralfate [Carafate] 1 gm PO BID 10 Days #200 ml 11/27/21 Allergies Allergy/AdvReac Type Severity Reaction Status Date / Time bee pollen Allergy Severe Anaphylaxis Verified 01/28/22 06:25 haloperidol [From Haldol] Allergy Severe QUIT Verified 01/28/22 06:25 BREATHING haloperidol lactate Allergy Severe QUIT Verified 01/28/22 06:25 [From Haldol] BREATHING latex Allergy Severe RASH-THROAT Verified 01/28/22 06:25 CLOSES [place] Allergy Anaphylaxis Verified 01/28/22 06:25 coconut Allergy Anaphylaxis Verified 01/28/22 06:25 morphine Allergy Rash/Hives Verified 01/28/22 06:25 pineapple Allergy Anaphylaxis Verified 01/28/22 06:25 prednisone Allergy THROAT Verified 01/28/22 06:25 SWELLS spider venom Allergy Swelling Verified 01/28/22 06:25 Sulfa (Sulfonamide Allergy THROAT Verified 01/28/22 06:25 Antibiotics) SWELLS venom-wasp Allergy Swelling Verified 01/28/22 06:25 venom-wasp protein Allergy Swelling Verified 01/28/22 06:25 promethazine HCl AdvReac Severe Nausea & Verified 01/28/22 06:25 [From Phenergan] Vomiting tramadol AdvReac Severe Nausea & Verified 01/28/22 06:25 Vomiting amoxicillin AdvReac Nausea & Verified 01/28/22 06:25 Vomiting ANTS AdvReac Mild Anaphylaxis Uncoded 01/28/22 06:25 Review of Systems ROS Statement: Those systems with pertinent positive or pertinent negative responses have been documented in the HPI. ROS Other: All systems not noted in ROS Statement are negative. Past Medical History Past Medical History: Asthma, Diabetes Mellitus, GERD/Reflux Additional Past Medical History / Comment(s): migraines, degenerative disk disease, endometriosis, lupus, pancreatitis, DM2- insulin History of Any Multi-Drug Resistant Organisms: None Reported Past Surgical History: Cholecystectomy, Orthopedic Surgery Additional Past Surgical History / Comment(s): laparoscopc surgery for endometriosis, cyst removed from left foot, EGD, Past Anesthesia/Blood Transfusion Reactions: Previous Problems w/ Anesthesia Additional Past Anesthesia/Blood Transfusion Reaction / Comment(s): hard to wake up for 48-72 hours after laparoscopic surgery-was in hosp. for 3 days Past Psychological History: Anxiety, Depression, PTSD Smoking Status: Vaper Past Alcohol Use History: None Reported Past Drug Use History: None Reported - Past Family History Mother Family Medical History: No Reported History Additional Family Medical History / Comment(s): hx migraines Father Family Medical History: Coronary Artery Disease (CAD), Hypertension Additional Family Medical History / Comment(s): ddd, alcoholism & drug use General Exam Limitations: no limitations General appearance: alert, in no apparent distress Head exam: Present: atraumatic, normocephalic, normal inspection Eye exam: Present: normal appearance, PERRL, EOMI. Absent: scleral icterus, conjunctival injection, periorbital swelling ENT exam: Present: normal exam, normal oropharynx, mucous membranes moist Neck exam: Present: normal inspection. Absent: tenderness, meningismus, lymphadenopathy Respiratory exam: Present: normal lung sounds bilaterally. Absent: respiratory distress, wheezes, rales, rhonchi, stridor Cardiovascular Exam: Present: regular rate (Heart rate 88 on exam), normal rhythm, normal heart sounds. Absent: systolic murmur, diastolic murmur, rubs, gallop, clicks GI/Abdominal exam: Present: soft, normal bowel sounds. Absent: distended, tenderness, guarding, rebound, rigid Neurological exam: Present: alert, oriented X3, CN II-XII intact Skin exam: Present: warm, dry, intact, normal color. Absent: rash Course Vital Signs 01/28/22 06:24 Temperature 98.2 F Pulse Rate 114 H Respiratory 20 Rate Blood Pressure 117/74 O2 Sat by Pulse 99 Oximetry Medical Decision Making - Medical Decision Making 31-year-old female presented for chronic issues. Patient is advised to follow- up with her GI physician, primary care physician. Patient was given antiemetics will be discharged in stable condition to return discussed. Disposition Clinical Impression: Chronic abdominal pain, Cephalgia Disposition: HOME SELF-CARE Condition: Stable Instructions (If sedation given, give patient instructions): Abdominal Pain (ED) Additional Instructions: Please return to the Emergency Department if symptoms worsen or any other concerns. Is patient prescribed a controlled substance at d/c from ED?: No Referrals: Isi Carolina MD [Primary Care Provider] - 1-2 days Time of Disposition: 06:40
[2022-01-28 06:47] VITALS: BP 117/74; PULSE 114; RESP 20; TEMP 98.2
== END 2022-01-28 06:51 | disposition home or self-care (01) ==
LOC: EC 06:19
DX: R10.10 Upper abdominal pain, unspecified (principal); R51.9 Headache, unspecified; J45.909 Unspecified asthma, uncomplicated; Z91.030 Bee allergy status; Z88.8 Allergy status to other drugs, medicaments and biological substances; Z91.040 Latex allergy status; Z91.018 Allergy to other foods; Z88.2 Allergy status to sulfonamides; Z91.038 Other insect allergy status; Z79.899 Other long term (current) drug therapy
CPT/HCPCS: 99283; 96372 ×3; J1200; J3250; J1885

== ENCOUNTER 2022-02-01 02:51 | Emergency (ER) | payer OTHER ==
[2022-02-01 03:00] VITALS: TEMP 98.6
[2022-02-01] MEDS ORDERED: PROCHLORPERAZINE 5 MG TAB PO STA (04:14)
[2022-02-01] MEDS ORDERED: diphenhydrAMINE 50 MG CAP PO STA (04:14)
[2022-02-01] MEDS ORDERED: HYDROmorphone 1 MG/ML 1 ML SYRINGE IM STA (04:14)
--- NOTE | 2022-02-01 04:15 | ED ---
Abdominal Pain HPI - General Chief Complaint: Abdominal Pain Stated Complaint: abd pain, headache Time Seen by Provider: 02/01/22 03:00 Source: patient, RN notes reviewed, old records reviewed Mode of arrival: ambulatory Limitations: no limitations - History of Present Illness Initial Comments: This is a 31-year-old female DF for evaluation. Patient presents today for evaluation regards to abdominal pain history of abdominal pain is worse right- sided abdominal pain of the lower pain normally is. Patient has no nausea no vomiting also complaining of headache migraine headache history of migraines. MD Complaint: abdominal pain -: unknown Location: RUQ, RLQ, R flank Radiation: RLQ, R flank Migration to: RUQ, RLQ Severity: moderate Severity scale (1-10): 6 Quality: stabbing Consistency: constant Improves With: nothing Worsens With: nothing Context: other (0) Associated Symptoms: nausea Treatments Prior to Arrival: other (0) - Related Data Home Medications Medication Instructions Recorded Confirmed ARIPiprazole IM SYRINGE [Abilify 400 mg IM Q30D 07/28/21 11/16/21 Maintena Syringe] Ibuprofen [Motrin] 800 mg PO Q8H PRN 11/16/21 11/16/21 Omeprazole 20 mg PO DAILY 11/16/21 11/16/21 Prochlorperazine [Compazine] 5 mg PO Q12H PRN 11/16/21 11/16/21 Propranolol HCl 20 mg PO DAILY 11/16/21 11/16/21 QUEtiapine FUMARATE [SEROquel XR] 600 mg PO HS 11/16/21 11/16/21 sitaGLIPtin [Januvia] 50 mg PO DAILY 11/16/21 11/16/21 Previous Rx's Medication Instructions Recorded Sucralfate [Carafate] 1 gm PO BID 10 Days #200 ml 11/27/21 Allergies Allergy/AdvReac Type Severity Reaction Status Date / Time bee pollen Allergy Severe Anaphylaxis Verified 02/01/22 03:00 haloperidol [From Haldol] Allergy Severe QUIT Verified 02/01/22 03:00 BREATHING haloperidol lactate Allergy Severe QUIT Verified 02/01/22 03:00 [From Haldol] BREATHING latex Allergy Severe RASH-THROAT Verified 02/01/22 03:00 CLOSES [place] Allergy Anaphylaxis Verified 02/01/22 03:00 coconut Allergy Anaphylaxis Verified 02/01/22 03:00 morphine Allergy Rash/Hives Verified 02/01/22 03:00 pineapple Allergy Anaphylaxis Verified 02/01/22 03:00 prednisone Allergy THROAT Verified 02/01/22 03:00 SWELLS spider venom Allergy Swelling Verified 02/01/22 03:00 Sulfa (Sulfonamide Allergy THROAT Verified 02/01/22 03:00 Antibiotics) SWELLS venom-wasp Allergy Swelling Verified 02/01/22 03:00 venom-wasp protein Allergy Swelling Verified 02/01/22 03:00 promethazine HCl AdvReac Severe Nausea & Verified 02/01/22 03:00 [From Phenergan] Vomiting tramadol AdvReac Severe Nausea & Verified 02/01/22 03:00 Vomiting amoxicillin AdvReac Nausea & Verified 02/01/22 03:00 Vomiting ANTS AdvReac Mild Anaphylaxis Uncoded 02/01/22 03:00 Review of Systems ROS Statement: Those systems with pertinent positive or pertinent negative responses have been documented in the HPI. ROS Other: All systems not noted in ROS Statement are negative. Past Medical History Past Medical History: Asthma, Diabetes Mellitus, GERD/Reflux Additional Past Medical History / Comment(s): migraines, degenerative disk disease, endometriosis, lupus, pancreatitis, DM2- insulin History of Any Multi-Drug Resistant Organisms: None Reported Past Surgical History: Cholecystectomy, Orthopedic Surgery Additional Past Surgical History / Comment(s): laparoscopc surgery for endometriosis, cyst removed from left foot, EGD, Past Anesthesia/Blood Transfusion Reactions: Previous Problems w/ Anesthesia Additional Past Anesthesia/Blood Transfusion Reaction / Comment(s): hard to wake up for 48-72 hours after laparoscopic surgery-was in hosp. for 3 days Past Psychological History: Anxiety, Depression, PTSD Smoking Status: Vaper Past Alcohol Use History: None Reported Past Drug Use History: None Reported - Past Family History Mother Family Medical History: No Reported History Additional Family Medical History / Comment(s): hx migraines Father Family Medical History: Coronary Artery Disease (CAD), Hypertension Additional Family Medical History / Comment(s): ddd, alcoholism & drug use General Exam Limitations: no limitations General appearance: alert, in no apparent distress Head exam: Present: atraumatic, normocephalic, normal inspection Eye exam: Present: normal appearance, PERRL, EOMI. Absent: scleral icterus, conjunctival injection, periorbital swelling ENT exam: Present: normal exam, mucous membranes moist Neck exam: Present: normal inspection. Absent: tenderness, meningismus, lymphadenopathy Respiratory exam: Present: normal lung sounds bilaterally. Absent: respiratory distress, wheezes, rales, rhonchi, stridor Cardiovascular Exam: Present: normal rhythm, tachycardia, normal heart sounds. Absent: systolic murmur, diastolic murmur, rubs, gallop, clicks GI/Abdominal exam: Present: soft, normal bowel sounds. Absent: distended, tenderness, guarding, rebound, rigid Extremities exam: Present: normal inspection, full ROM, normal capillary refill. Absent: tenderness, pedal edema, joint swelling, calf tenderness Back exam: Present: normal inspection Neurological exam: Present: alert, oriented X3, CN II-XII intact Psychiatric exam: Present: normal affect, normal mood Skin exam: Present: warm, dry, intact, normal color. Absent: rash Course Vital Signs 02/01/22 02/01/22 02:57 04:00 Temperature 98.6 F Pulse Rate 118 H 104 H Respiratory 20 16 Rate Blood Pressure 105/74 115/73 O2 Sat by Pulse 99 Oximetry - Reevaluation(s) Reevaluation #1: 02/01/22 04:59 Medical records reviewed Reevaluation #2: 02/01/22 04:59 patient symptoms are improved Reevaluation #3: 02/01/22 04:59 patient is informed results and questions are answered Medical Decision Making - Medical Decision Making 31 female to the emergency department for headache and abdominal pain. Post symptoms are resolved here in the ER can be discharged home Disposition Clinical Impression: Abdominal pain Disposition: HOME SELF-CARE Condition: Fair Instructions (If sedation given, give patient instructions): Abdominal Pain (ED) Is patient prescribed a controlled substance at d/c from ED?: No Referrals: Isi Carolina MD [Primary Care Provider] - 1-2 days Time of Disposition: 04:35
[2022-02-01 05:45] VITALS: BP 97/53; PULSE 101; RESP 18
== END 2022-02-01 06:18 | disposition home or self-care (01) ==
LOC: EC 02:51
DX: R10.9 Unspecified abdominal pain (principal); J45.909 Unspecified asthma, uncomplicated; E11.9 Type 2 diabetes mellitus without complications; K21.9 Gastro-esophageal reflux disease without esophagitis; F17.290 Nicotine dependence, other tobacco product, uncomplicated; Z79.83 Long term (current) use of bisphosphonates; Z79.84 Long term (current) use of oral hypoglycemic drugs; Z91.030 Bee allergy status; Z88.8 Allergy status to other drugs, medicaments and biological substances; Z91.040 Latex allergy status; Z91.018 Allergy to other foods; Z88.6 Allergy status to analgesic agent; Z91.038 Other insect allergy status; Z88.2 Allergy status to sulfonamides; Z88.5 Allergy status to narcotic agent; Z88.0 Allergy status to penicillin
CPT/HCPCS: 99283; 96372; S0183; J1170

== ENCOUNTER 2022-02-04 01:33 | Emergency (ER) | payer OTHER ==
[2022-02-04 01:45] VITALS: TEMP 97.8
[2022-02-04] MEDS ORDERED: KETOROLAC 15 MG/ML 1 ML VIAL IVP STA (03:44)
[2022-02-04] MEDS ORDERED: ONDANSETRON 4 MG/2 ML VIAL IVP STA (03:44)
--- NOTE | 2022-02-04 04:22 | XR ---
EXAMINATION TYPE: XR KUB DATE OF EXAM: 02/04/2022 COMPARISON: 12/18/2021 HISTORY: Abdominal pain TECHNIQUE: 2 views upright FINDINGS: There is no sign of intestinal obstruction or pneumoperitoneum. Fecal pattern is normal. Th ere are clips from cholecystectomy. Lung bases are clear. No sign of a mass. IMPRESSION: Nonacute abdomen. No adverse change. There is improvement in the constipation compared to last exam.
[2022-02-04 04:24] VITALS: RESP 16
[2022-02-04 04:33] LABS: Basophils % (A) 1 %; Eosinophils # (A) 0.1 k/uL (0-0.7); Eosinophils % (A) 3 %; HCT 29.9 % (34.0-46.0); HGB 9.7 gm/dL (11.4-16.0); Hypochromasia Slight; Lymphocytes # (A) 2.2 k/uL (1.0-4.8); Lymphocytes % (A) 42 %; MCHC 32.4 g/dL (31.0-37.0); MCV 89.5 fL (80.0-100.0); Mean Platelet Volume 7.8; Monocytes # (A) 0.3 k/uL (0-1.0); Monocytes % (A) 6 %; Neutrophils # (A) 2.4 k/uL (1.3-7.7); Neutrophils % (A) 46 %; Platelet Count 311 k/uL (150-450); RBC 3.35 m/uL (3.80-5.40); RDW 15.6 % (11.5-15.5); WBC 5.3 k/uL (3.8-10.6)
[2022-02-04 04:39] LABS: ALT 14 U/L (4-34); AST 14 U/L (14-36); African American GFR (CKD) >90 (>60 ml/min/1.73 sqM); Albumin 3.2 g/dL (3.5-5.0); Alkaline Phosphatase 41 U/L (38-126); Anion Gap 8 mmol/L; Blood Urea Nitrogen 17 mg/dL (7-17); Calcium 9.5 mg/dL (8.4-10.2); Carbon Dioxide 22 mmol/L (22-30); Chloride 105 mmol/L (98-107); Glucose 169 mg/dL (74-99); Lipase 373 U/L (23-300); Non-African American GFR(CKD) 90 (>60 ml/min/1.73 sqM); Potassium 4.2 mmol/L (3.5-5.1); Sodium 135 mmol/L (137-145); Total Bilirubin 0.1 mg/dL (0.2-1.3); Total Protein 5.7 g/dL (6.3-8.2)
[2022-02-04 04:47] LABS: Appearance,Urine Cloudy (Clear); Bacteria,Urine Moderate /hpf; Bilirubin,Urine Negative (Negative); Blood,Urine Negative (Negative); Color,Urine Yellow; Glucose,Urine (UA) Negative (Negative); Ketones,Urine Negative (Negative); Leukocyte Esterase,Urine Large (Negative); Nitrite,Urine Negative (Negative); PH, Urine 6.5 (5.0-8.0); Protein,Urine 1+ (Negative); RBC,Urine 1 /hpf (0-5); Specific Gravity,Urine 1.022 (1.001-1.035); Squamous Epithelial Cell,Urine 10 /hpf (0-4); WBC,Urine 20 /hpf (0-5)
--- NOTE | 2022-02-04 04:57 | ED ---
Abdominal Pain HPI - General Chief Complaint: Abdominal Pain Stated Complaint: Abdominal Pain, vomiting Time Seen by Provider: 02/04/22 01:50 Source: patient Mode of arrival: ambulatory Limitations: no limitations - History of Present Illness Initial Comments: 31-year-old female well known to the emergency department presents with chronic abdominal pain and migraine. Reports that she has sebaceous of her chronic symptoms. Denies any urinary or bowel complaints. No fevers. No vomiting. Admits nausea. No concern for . No other alleviating, precipitating or modifying factors - Related Data Home Medications Medication Instructions Recorded Confirmed ARIPiprazole IM SYRINGE [Abilify 400 mg IM Q30D 07/28/21 11/16/21 Maintena Syringe] Ibuprofen [Motrin] 800 mg PO Q8H PRN 11/16/21 11/16/21 Omeprazole 20 mg PO DAILY 11/16/21 11/16/21 Prochlorperazine [Compazine] 5 mg PO Q12H PRN 11/16/21 11/16/21 Propranolol HCl 20 mg PO DAILY 11/16/21 11/16/21 QUEtiapine FUMARATE [SEROquel XR] 600 mg PO HS 11/16/21 11/16/21 sitaGLIPtin [Januvia] 50 mg PO DAILY 11/16/21 11/16/21 Previous Rx's Medication Instructions Recorded Sucralfate [Carafate] 1 gm PO BID 10 Days #200 ml 11/27/21 Allergies Allergy/AdvReac Type Severity Reaction Status Date / Time bee pollen Allergy Severe Anaphylaxis Verified 02/04/22 01:43 haloperidol [From Haldol] Allergy Severe QUIT Verified 02/04/22 01:43 BREATHING haloperidol lactate Allergy Severe QUIT Verified 02/04/22 01:43 [From Haldol] BREATHING latex Allergy Severe RASH-THROAT Verified 02/04/22 01:43 CLOSES [place] Allergy Anaphylaxis Verified 02/04/22 01:43 coconut Allergy Anaphylaxis Verified 02/04/22 01:43 morphine Allergy Rash/Hives Verified 02/04/22 01:43 pineapple Allergy Anaphylaxis Verified 02/04/22 01:43 prednisone Allergy THROAT Verified 02/04/22 01:43 SWELLS spider venom Allergy Swelling Verified 02/04/22 01:43 Sulfa (Sulfonamide Allergy THROAT Verified 02/04/22 01:43 Antibiotics) SWELLS venom-wasp Allergy Swelling Verified 02/04/22 01:43 venom-wasp protein Allergy Swelling Verified 02/04/22 01:43 promethazine HCl AdvReac Severe Nausea & Verified 02/04/22 01:43 [From Phenergan] Vomiting tramadol AdvReac Severe Nausea & Verified 02/04/22 01:43 Vomiting amoxicillin AdvReac Nausea & Verified 02/04/22 01:43 Vomiting ANTS AdvReac Mild Anaphylaxis Uncoded 02/04/22 01:43 Review of Systems ROS Statement: Those systems with pertinent positive or pertinent negative responses have been documented in the HPI. ROS Other: All systems not noted in ROS Statement are negative. Past Medical History Past Medical History: Asthma, Diabetes Mellitus, GERD/Reflux Additional Past Medical History / Comment(s): migraines, degenerative disk disease, endometriosis, lupus, pancreatitis, DM2- insulin History of Any Multi-Drug Resistant Organisms: None Reported Past Surgical History: Cholecystectomy, Orthopedic Surgery Additional Past Surgical History / Comment(s): laparoscopc surgery for endometriosis, cyst removed from left foot, EGD, Past Anesthesia/Blood Transfusion Reactions: Previous Problems w/ Anesthesia Additional Past Anesthesia/Blood Transfusion Reaction / Comment(s): hard to wake up for 48-72 hours after laparoscopic surgery-was in hosp. for 3 days Past Psychological History: Anxiety, Depression, PTSD Smoking Status: Vaper Past Alcohol Use History: None Reported Past Drug Use History: None Reported - Past Family History Mother Family Medical History: No Reported History Additional Family Medical History / Comment(s): hx migraines Father Family Medical History: Coronary Artery Disease (CAD), Hypertension Additional Family Medical History / Comment(s): ddd, alcoholism & drug use General Exam Limitations: no limitations General appearance: alert, in no apparent distress Head exam: Present: atraumatic, normocephalic, normal inspection Eye exam: Present: normal appearance, PERRL, EOMI. Absent: scleral icterus, conjunctival injection, periorbital swelling ENT exam: Present: normal exam, mucous membranes moist Neck exam: Present: normal inspection. Absent: tenderness, meningismus, lymphadenopathy Respiratory exam: Present: normal lung sounds bilaterally. Absent: respiratory distress, wheezes, rales, rhonchi, stridor Cardiovascular Exam: Present: normal rhythm, tachycardia, normal heart sounds. Absent: systolic murmur, diastolic murmur, rubs, gallop, clicks GI/Abdominal exam: Present: soft, tenderness (generalized), normal bowel sounds. Absent: distended, guarding, rebound, rigid Extremities exam: Present: normal inspection, full ROM, normal capillary refill. Absent: tenderness, pedal edema, joint swelling, calf tenderness Back exam: Present: normal inspection Neurological exam: Present: alert, oriented X3, CN II-XII intact Psychiatric exam: Present: normal affect, normal mood Skin exam: Present: warm, dry, intact, normal color. Absent: rash Course Vital Signs 02/04/22 02/04/22 02/04/22 01:43 04:23 05:44 Temperature 97.8 F Pulse Rate 119 H 100 102 H Respiratory 18 16 16 Rate Blood Pressure 104/69 98/62 100/62 O2 Sat by Pulse 100 100 100 Oximetry Medical Decision Making - Medical Decision Making Upon arrival patient was placed into room 30. IV is established. Patient given Toradol and fluids. Laboratory studies are conducted. She is reevaluated and continues to have symptoms therefore patient is given Reglan and Benadryl. Laboratory studies are within normal limits. Patient will be discharged home and instructed to follow up with her primary care doctor for her chronic symptoms. Return for anything new or worsening. Patient agreeable and discharged home in stable condition - Lab Data Result diagrams: 02/04/22 04:17 02/04/22 04:17 Lab Results 02/04/22 02/04/22 02/04/22 Range/Units 04:17 04:17 04:23 WBC 5.3 (3.8-10.6) k/uL RBC 3.35 L (3.80-5.40) m/uL Hgb 9.7 L (11.4-16.0) gm/dL Hct 29.9 L (34.0-46.0) % MCV 89.5 (80.0-100.0) fL MCH 29.0 (25.0-35.0) pg MCHC 32.4 (31.0-37.0) g/dL RDW 15.6 H (11.5-15.5) % Plt Count 311 (150-450) k/uL MPV 7.8 Neutrophils % 46 % Lymphocytes % 42 % Monocytes % 6 % Eosinophils % 3 % Basophils % 1 % Neutrophils # 2.4 (1.3-7.7) k/uL Lymphocytes # 2.2 (1.0-4.8) k/uL Monocytes # 0.3 (0-1.0) k/uL Eosinophils # 0.1 (0-0.7) k/uL Basophils # 0.0 (0-0.2) k/uL Hypochromasia Slight Sodium 135 L (137-145) mmol/L Potassium 4.2 (3.5-5.1) mmol/L Chloride 105 (98-107) mmol/L Carbon Dioxide 22 (22-30) mmol/L Anion Gap 8 mmol/L BUN 17 (7-17) mg/dL Creatinine 0.87 (0.52-1.04) mg/dL Est GFR (CKD-EPI)AfAm >90 (>60 ml/min/1.73 sqM) Est GFR (CKD-EPI)NonAf 90 (>60 ml/min/1.73 sqM) Glucose 169 H (74-99) mg/dL Calcium 9.5 (8.4-10.2) mg/dL Total Bilirubin 0.1 L (0.2-1.3) mg/dL AST 14 (14-36) U/L ALT 14 (4-34) U/L Alkaline Phosphatase 41 (38-126) U/L Total Protein 5.7 L (6.3-8.2) g/dL Albumin 3.2 L (3.5-5.0) g/dL Lipase 373 H (23-300) U/L Urine Color Yellow Urine Appearance Cloudy H (Clear) Urine pH 6.5 (5.0-8.0) Ur Specific [place] 1.022 (1.001-1.035) Urine Protein 1+ H (Negative) Urine Glucose (UA) Negative (Negative) Urine Ketones Negative (Negative) Urine Blood Negative (Negative) Urine Nitrite Negative (Negative) Urine Bilirubin Negative (Negative) Urine Urobilinogen 2.0 (<2.0) mg/dL Ur Leukocyte Esterase Large H (Negative) Urine RBC 1 (0-5) /hpf Urine WBC 20 H (0-5) /hpf Ur Squamous Epith Cells 10 H (0-4) /hpf Urine Bacteria Moderate H (None) /hpf Urine HCG, Qual (Not Detectd) 02/04/22 Range/Units 04:23 WBC (3.8-10.6) k/uL RBC (3.80-5.40) m/uL Hgb (11.4-16.0) gm/dL Hct (34.0-46.0) % MCV (80.0-100.0) fL MCH (25.0-35.0) pg MCHC (31.0-37.0) g/dL RDW (11.5-15.5) % Plt Count (150-450) k/uL MPV Neutrophils % % Lymphocytes % % Monocytes % % Eosinophils % % Basophils % % Neutrophils # (1.3-7.7) k/uL Lymphocytes # (1.0-4.8) k/uL Monocytes # (0-1.0) k/uL Eosinophils # (0-0.7) k/uL Basophils # (0-0.2) k/uL Hypochromasia Sodium (137-145) mmol/L Potassium (3.5-5.1) mmol/L Chloride (98-107) mmol/L Carbon Dioxide (22-30) mmol/L Anion Gap mmol/L BUN (7-17) mg/dL Creatinine (0.52-1.04) mg/dL Est GFR (CKD-EPI)AfAm (>60 ml/min/1.73 sqM) Est GFR (CKD-EPI)NonAf (>60 ml/min/1.73 sqM) Glucose (74-99) mg/dL Calcium (8.4-10.2) mg/dL Total Bilirubin (0.2-1.3) mg/dL AST (14-36) U/L ALT (4-34) U/L Alkaline Phosphatase (38-126) U/L Total Protein (6.3-8.2) g/dL Albumin (3.5-5.0) g/dL Lipase (23-300) U/L Urine Color Urine Appearance (Clear) Urine pH (5.0-8.0) Ur Specific [place] (1.001-1.035) Urine Protein (Negative) Urine Glucose (UA) (Negative) Urine Ketones (Negative) Urine Blood (Negative) Urine Nitrite (Negative) Urine Bilirubin (Negative) Urine Urobilinogen (<2.0) mg/dL Ur Leukocyte Esterase (Negative) Urine RBC (0-5) /hpf Urine WBC (0-5) /hpf Ur Squamous Epith Cells (0-4) /hpf Urine Bacteria (None) /hpf Urine HCG, Qual Not Detected (Not Detectd) Disposition Clinical Impression: Migraine headache, Abdominal pain, Drug-seeking behavior Disposition: HOME SELF-CARE Condition: Stable Instructions (If sedation given, give patient instructions): Abdominal Pain (ED) Is patient prescribed a controlled substance at d/c from ED?: No Referrals: Isi Carolina MD [Primary Care Provider] - 1-2 days Time of Disposition: 05:17
[2022-02-04] MEDS ORDERED: METOCLOPRAMIDE 5 MG/ML 2 ML VIAL IVP STA (05:16)
[2022-02-04] MEDS ORDERED: diphenhydrAMINE 50 MG/ML 1 ML VIAL IVP STA (05:16)
[2022-02-04 05:53] VITALS: BP 100/62; PULSE 102
== END 2022-02-04 05:44 | disposition home or self-care (01) ==
LOC: EEVIPCON 01:33 → EC 01:33
DX: R10.9 Unspecified abdominal pain (principal); Z72.89 Other problems related to lifestyle; J45.909 Unspecified asthma, uncomplicated; E11.9 Type 2 diabetes mellitus without complications; K21.9 Gastro-esophageal reflux disease without esophagitis; F41.9 Anxiety disorder, unspecified; F17.290 Nicotine dependence, other tobacco product, uncomplicated; Z79.83 Long term (current) use of bisphosphonates; Z79.899 Other long term (current) drug therapy; Z91.030 Bee allergy status; Z91.040 Latex allergy status; Z91.018 Allergy to other foods; Z88.2 Allergy status to sulfonamides; Z88.0 Allergy status to penicillin; Z88.8 Allergy status to other drugs, medicaments and biological substances
CPT/HCPCS: 99284; 96374; 96375 ×3; 36415; 80053; 83690; 85025; 81001; 81025; 87086; 74018; J1200; J2765; J2405; J1885

== ENCOUNTER 2022-02-04 22:35 | Emergency (ER) | payer OTHER ==
[2022-02-04] MEDS ORDERED: PANTOPRAZOLE 40 MG/10 ML VIAL IVP STA (22:38)
[2022-02-04] MEDS ORDERED: METOCLOPRAMIDE 5 MG/ML 2 ML VIAL IVP STA (22:38)
[2022-02-04] MEDS ORDERED: SODIUM CHLORIDE 0.9% 1,000 ML IV STA (22:38)
[2022-02-04] MEDS ORDERED: diphenhydrAMINE 50 MG/ML 1 ML VIAL IVP STA (22:38)
[2022-02-04 23:49] LABS: Basophils % (A) 0 %; Eosinophils # (A) 0.1 k/uL (0-0.7); Eosinophils % (A) 2 %; HCT 29.4 % (34.0-46.0); Hypochromasia Slight; Lymphocytes # (A) 1.6 k/uL (1.0-4.8); Lymphocytes % (A) 36 %; MCH 30.3 pg (25.0-35.0); MCHC 33.8 g/dL (31.0-37.0); MCV 89.7 fL (80.0-100.0); Mean Platelet Volume 8.2; Monocytes # (A) 0.2 k/uL (0-1.0); Monocytes % (A) 6 %; Neutrophils # (A) 2.3 k/uL (1.3-7.7); Neutrophils % (A) 54 %; Platelet Count 268 k/uL (150-450); RBC 3.28 m/uL (3.80-5.40); RDW 15.2 % (11.5-15.5); WBC 4.3 k/uL (3.8-10.6)
[2022-02-05 00:06] LABS: ALT 14 U/L (4-34); AST 15 U/L (14-36); African American GFR (CKD) >90 (>60 ml/min/1.73 sqM); Albumin 3.2 g/dL (3.5-5.0); Alkaline Phosphatase 46 U/L (38-126); Anion Gap 10 mmol/L; Blood Urea Nitrogen 14 mg/dL (7-17); Calcium 9.4 mg/dL (8.4-10.2); Carbon Dioxide 19 mmol/L (22-30); Chloride 107 mmol/L (98-107); Glucose 122 mg/dL (74-99); Lipase 355 U/L (23-300); Non-African American GFR(CKD) >90 (>60 ml/min/1.73 sqM); Potassium 4.4 mmol/L (3.5-5.1); Sodium 136 mmol/L (137-145); Total Bilirubin 0.2 mg/dL (0.2-1.3); Total Protein 5.8 g/dL (6.3-8.2)
[2022-02-05] MEDS ORDERED: BUTALB/APAP/CAFF 50-325-40MG TAB PO STA (00:09)
[2022-02-05 00:25] VITALS: TEMP 98.4
--- NOTE | 2022-02-05 00:25 | ED ---
Abdominal Pain HPI - General Chief Complaint: Abdominal Pain Stated Complaint: abd pain Time Seen by Provider: 02/04/22 22:50 Source: patient Mode of arrival: EMS Limitations: no limitations - History of Present Illness Initial Comments: 31-year-old female well known to the emergency department presents today for cephalgia and abdominal pain. Patient seen yesterday for similar complaint. Reports that the medications helped her while she was hospitalized however went home and had redevelopment of her symptoms. Denies any worsening of the severity. This is not the worse headache of her life. Denies any fevers. Admits nausea with dry heaving. No concern for . No abnormal vaginal bleeding or discharge. No dysuria, hematuria or difficulty voiding. No changes in her bowel habits. No head trauma. No other alleviating, precipitating modifying factors - Related Data Home Medications Medication Instructions Recorded Confirmed ARIPiprazole IM SYRINGE [Abilify 400 mg IM Q30D 07/28/21 11/16/21 Maintena Syringe] Ibuprofen [Motrin] 800 mg PO Q8H PRN 11/16/21 11/16/21 Omeprazole 20 mg PO DAILY 11/16/21 11/16/21 Prochlorperazine [Compazine] 5 mg PO Q12H PRN 11/16/21 11/16/21 Propranolol HCl 20 mg PO DAILY 11/16/21 11/16/21 QUEtiapine FUMARATE [SEROquel XR] 600 mg PO HS 11/16/21 11/16/21 sitaGLIPtin [Januvia] 50 mg PO DAILY 11/16/21 11/16/21 Previous Rx's Medication Instructions Recorded Sucralfate [Carafate] 1 gm PO BID 10 Days #200 ml 11/27/21 Allergies Allergy/AdvReac Type Severity Reaction Status Date / Time bee pollen Allergy Severe Anaphylaxis Verified 02/04/22 01:43 haloperidol [From Haldol] Allergy Severe QUIT Verified 02/04/22 01:43 BREATHING haloperidol lactate Allergy Severe QUIT Verified 02/04/22 01:43 [From Haldol] BREATHING latex Allergy Severe RASH-THROAT Verified 02/04/22 01:43 CLOSES [place] Allergy Anaphylaxis Verified 02/04/22 01:43 coconut Allergy Anaphylaxis Verified 02/04/22 01:43 morphine Allergy Rash/Hives Verified 02/04/22 01:43 pineapple Allergy Anaphylaxis Verified 02/04/22 01:43 prednisone Allergy THROAT Verified 02/04/22 01:43 SWELLS spider venom Allergy Swelling Verified 02/04/22 01:43 Sulfa (Sulfonamide Allergy THROAT Verified 02/04/22 01:43 Antibiotics) SWELLS venom-wasp Allergy Swelling Verified 02/04/22 01:43 venom-wasp protein Allergy Swelling Verified 02/04/22 01:43 promethazine HCl AdvReac Severe Nausea & Verified 02/04/22 01:43 [From Phenergan] Vomiting tramadol AdvReac Severe Nausea & Verified 02/04/22 01:43 Vomiting amoxicillin AdvReac Nausea & Verified 02/04/22 01:43 Vomiting ANTS AdvReac Mild Anaphylaxis Uncoded 02/04/22 01:43 Review of Systems ROS Statement: Those systems with pertinent positive or pertinent negative responses have been documented in the HPI. ROS Other: All systems not noted in ROS Statement are negative. Past Medical History Past Medical History: Asthma, Diabetes Mellitus, GERD/Reflux Additional Past Medical History / Comment(s): migraines, degenerative disk disease, endometriosis, lupus, pancreatitis, DM2- insulin History of Any Multi-Drug Resistant Organisms: None Reported Past Surgical History: Cholecystectomy, Orthopedic Surgery Additional Past Surgical History / Comment(s): laparoscopc surgery for endometriosis, cyst removed from left foot, EGD, Past Anesthesia/Blood Transfusion Reactions: Previous Problems w/ Anesthesia Additional Past Anesthesia/Blood Transfusion Reaction / Comment(s): hard to wake up for 48-72 hours after laparoscopic surgery-was in hosp. for 3 days Past Psychological History: Anxiety, Depression, PTSD Smoking Status: Vaper Past Alcohol Use History: None Reported Past Drug Use History: None Reported - Past Family History Mother Family Medical History: No Reported History Additional Family Medical History / Comment(s): hx migraines Father Family Medical History: Coronary Artery Disease (CAD), Hypertension Additional Family Medical History / Comment(s): ddd, alcoholism & drug use General Exam Limitations: no limitations General appearance: alert, in no apparent distress Head exam: Present: atraumatic, normocephalic, normal inspection Eye exam: Present: normal appearance, PERRL, EOMI. Absent: scleral icterus, conjunctival injection, periorbital swelling ENT exam: Present: normal exam, mucous membranes moist Neck exam: Present: normal inspection. Absent: tenderness, meningismus, lymphadenopathy Respiratory exam: Present: normal lung sounds bilaterally. Absent: respiratory distress, wheezes, rales, rhonchi, stridor Cardiovascular Exam: Present: normal rhythm, tachycardia, normal heart sounds. Absent: systolic murmur, diastolic murmur, rubs, gallop, clicks GI/Abdominal exam: Present: soft, tenderness (generalized), normal bowel sounds. Absent: distended, guarding, rebound, rigid Extremities exam: Present: normal inspection, full ROM, normal capillary refill. Absent: tenderness, pedal edema, joint swelling, calf tenderness Back exam: Present: normal inspection Neurological exam: Present: alert, oriented X3, CN II-XII intact Psychiatric exam: Present: normal affect, normal mood Skin exam: Present: warm, dry, intact, normal color. Absent: rash Course Vital Signs 02/04/22 02/05/22 02/05/22 22:47 00:24 00:51 Temperature 9834 F H 98.4 F Pulse Rate 120 H 122 H Respiratory 14 16 Rate Blood Pressure 107/64 104/53 O2 Sat by Pulse 99 97 Oximetry Medical Decision Making - Medical Decision Making Upon arrival patient is placed into room 7. There are history and physical exam was performed. IV access was established. Patient given protonix, Reglan, Benadryl and a liter bolus of normal saline. Laboratory studies are conducted and reviewed. Patient is reevaluated and states that her abdominal pain is improved however does have a headache. She is given a Fioricet. Patient will be discharged and instructed to follow up with her primary care doctor to 4 days for reevaluation and return for any new or worsening symptoms. Patient agreeable and discharged home in stable condition - Lab Data Result diagrams: 02/04/22 23:24 02/04/22 23:24 Lab Results 02/04/22 02/04/22 Range/Units 23:24 23:24 WBC 4.3 (3.8-10.6) k/uL RBC 3.28 L (3.80-5.40) m/uL Hgb 10.0 L (11.4-16.0) gm/dL Hct 29.4 L (34.0-46.0) % MCV 89.7 (80.0-100.0) fL MCH 30.3 (25.0-35.0) pg MCHC 33.8 (31.0-37.0) g/dL RDW 15.2 (11.5-15.5) % Plt Count 268 (150-450) k/uL MPV 8.2 Neutrophils % 54 % Lymphocytes % 36 % Monocytes % 6 % Eosinophils % 2 % Basophils % 0 % Neutrophils # 2.3 (1.3-7.7) k/uL Lymphocytes # 1.6 (1.0-4.8) k/uL Monocytes # 0.2 (0-1.0) k/uL Eosinophils # 0.1 (0-0.7) k/uL Basophils # 0.0 (0-0.2) k/uL Hypochromasia Slight Sodium 136 L (137-145) mmol/L Potassium 4.4 (3.5-5.1) mmol/L Chloride 107 (98-107) mmol/L Carbon Dioxide 19 L (22-30) mmol/L Anion Gap 10 mmol/L BUN 14 (7-17) mg/dL Creatinine 0.83 (0.52-1.04) mg/dL Est GFR (CKD-EPI)AfAm >90 (>60 ml/min/1.73 sqM) Est GFR (CKD-EPI)NonAf >90 (>60 ml/min/1.73 sqM) Glucose 122 H (74-99) mg/dL Calcium 9.4 (8.4-10.2) mg/dL Total Bilirubin 0.2 (0.2-1.3) mg/dL AST 15 (14-36) U/L ALT 14 (4-34) U/L Alkaline Phosphatase 46 (38-126) U/L Total Protein 5.8 L (6.3-8.2) g/dL Albumin 3.2 L (3.5-5.0) g/dL Lipase 355 H (23-300) U/L Disposition Clinical Impression: Drug-seeking behavior, Abdominal pain, Cephalgia Disposition: HOME SELF-CARE Condition: Stable Instructions (If sedation given, give patient instructions): Abdominal Pain (ED) Is patient prescribed a controlled substance at d/c from ED?: No Referrals: Isi Carolina MD [Primary Care Provider] - 1-2 days Time of Disposition: 00:25
[2022-02-05 00:53] VITALS: BP 104/53; PULSE 122; RESP 16
== END 2022-02-05 00:53 | disposition home or self-care (01) ==
LOC: EC 22:35
DX: R10.9 Unspecified abdominal pain (principal); Z72.89 Other problems related to lifestyle; J45.909 Unspecified asthma, uncomplicated; E11.9 Type 2 diabetes mellitus without complications; K21.9 Gastro-esophageal reflux disease without esophagitis; F41.9 Anxiety disorder, unspecified; F32.A Depression, unspecified; F17.290 Nicotine dependence, other tobacco product, uncomplicated; Z79.83 Long term (current) use of bisphosphonates; Z79.899 Other long term (current) drug therapy; Z88.0 Allergy status to penicillin; Z88.1 Allergy status to other antibiotic agents; Z91.018 Allergy to other foods; Z91.030 Bee allergy status; Z88.8 Allergy status to other drugs, medicaments and biological substances; Z88.5 Allergy status to narcotic agent
CPT/HCPCS: 36415; 80053; 83690; 85025; 99284; 96374; 96375 ×2; 96361 ×2; J1200; J2765; C9113

== ENCOUNTER 2022-02-09 08:10 | Emergency (ER) | payer OTHER ==
[2022-02-09 08:16] VITALS: TEMP 98.2
[2022-02-09] MEDS ORDERED: TRIMETHOBENZAMIDE 100 MG/ML 2 ML VIAL IM STA (08:27)
[2022-02-09] MEDS ORDERED: diphenhydrAMINE 50 MG/ML 1 ML VIAL IM STA (08:27)
[2022-02-09] MEDS ORDERED: KETOROLAC 15 MG/ML 1 ML VIAL IM STA (08:27)
--- NOTE | 2022-02-09 08:30 | ED ---
Abdominal Pain HPI - General Chief Complaint: Abdominal Pain Stated Complaint: abd pain, headache Time Seen by Provider: 02/09/22 08:18 Source: patient, RN notes reviewed Mode of arrival: ambulatory Limitations: no limitations - History of Present Illness Initial Comments: 31-year-old female presents emergency Department chief complaint of abdominal pain which is chronic in nature. Patient states she had a cough work and she had an episode of vomiting. Patient states this is her typical pain but not worse. Patient denies any dysuria hematuria. Patient denies any chest pain shortness of breath fevers chills neck pain or any flank pain denies any chance . - Related Data Home Medications Medication Instructions Recorded Confirmed ARIPiprazole IM SYRINGE [Abilify 400 mg IM Q30D 07/28/21 11/16/21 Maintena Syringe] Ibuprofen [Motrin] 800 mg PO Q8H PRN 11/16/21 11/16/21 Omeprazole 20 mg PO DAILY 11/16/21 11/16/21 Prochlorperazine [Compazine] 5 mg PO Q12H PRN 11/16/21 11/16/21 Propranolol HCl 20 mg PO DAILY 11/16/21 11/16/21 QUEtiapine FUMARATE [SEROquel XR] 600 mg PO HS 11/16/21 11/16/21 sitaGLIPtin [Januvia] 50 mg PO DAILY 11/16/21 11/16/21 Previous Rx's Medication Instructions Recorded Sucralfate [Carafate] 1 gm PO BID 10 Days #200 ml 11/27/21 Allergies Allergy/AdvReac Type Severity Reaction Status Date / Time bee pollen Allergy Severe Anaphylaxis Verified 02/09/22 08:16 haloperidol [From Haldol] Allergy Severe QUIT Verified 02/09/22 08:16 BREATHING haloperidol lactate Allergy Severe QUIT Verified 02/09/22 08:16 [From Haldol] BREATHING latex Allergy Severe RASH-THROAT Verified 02/09/22 08:16 CLOSES [place] Allergy Anaphylaxis Verified 02/09/22 08:16 coconut Allergy Anaphylaxis Verified 02/09/22 08:16 morphine Allergy Rash/Hives Verified 02/09/22 08:16 pineapple Allergy Anaphylaxis Verified 02/09/22 08:16 prednisone Allergy THROAT Verified 02/09/22 08:16 SWELLS spider venom Allergy Swelling Verified 02/09/22 08:16 Sulfa (Sulfonamide Allergy THROAT Verified 02/09/22 08:16 Antibiotics) SWELLS venom-wasp Allergy Swelling Verified 02/09/22 08:16 venom-wasp protein Allergy Swelling Verified 02/09/22 08:16 promethazine HCl AdvReac Severe Nausea & Verified 02/09/22 08:16 [From Phenergan] Vomiting tramadol AdvReac Severe Nausea & Verified 02/09/22 08:16 Vomiting amoxicillin AdvReac Nausea & Verified 02/09/22 08:16 Vomiting ANTS AdvReac Mild Anaphylaxis Uncoded 02/09/22 08:16 Review of Systems ROS Statement: Those systems with pertinent positive or pertinent negative responses have been documented in the HPI. ROS Other: All systems not noted in ROS Statement are negative. Past Medical History Past Medical History: Asthma, Diabetes Mellitus, GERD/Reflux Additional Past Medical History / Comment(s): migraines, degenerative disk disease, endometriosis, lupus, pancreatitis, DM2- insulin History of Any Multi-Drug Resistant Organisms: None Reported Past Surgical History: Cholecystectomy, Orthopedic Surgery Additional Past Surgical History / Comment(s): laparoscopc surgery for endometriosis, cyst removed from left foot, EGD, Past Anesthesia/Blood Transfusion Reactions: Previous Problems w/ Anesthesia Additional Past Anesthesia/Blood Transfusion Reaction / Comment(s): hard to wake up for 48-72 hours after laparoscopic surgery-was in hosp. for 3 days Past Psychological History: Anxiety, Depression, PTSD Smoking Status: Vaper Past Alcohol Use History: None Reported Past Drug Use History: None Reported - Past Family History Mother Family Medical History: No Reported History Additional Family Medical History / Comment(s): hx migraines Father Family Medical History: Coronary Artery Disease (CAD), Hypertension Additional Family Medical History / Comment(s): ddd, alcoholism & drug use General Exam Limitations: no limitations General appearance: alert, in no apparent distress Head exam: Present: atraumatic, normocephalic, normal inspection Eye exam: Present: normal appearance, PERRL, EOMI. Absent: scleral icterus, conjunctival injection, periorbital swelling ENT exam: Present: normal exam, mucous membranes moist Neck exam: Present: normal inspection, full ROM. Absent: tenderness, meningismus, lymphadenopathy Respiratory exam: Present: normal lung sounds bilaterally. Absent: respiratory distress, wheezes, rales, rhonchi, stridor Cardiovascular Exam: Present: normal rhythm, tachycardia, normal heart sounds. Absent: systolic murmur, diastolic murmur, rubs, gallop, clicks GI/Abdominal exam: Present: soft, tenderness (Minimal), normal bowel sounds. Absent: distended, guarding, rebound, rigid Course Vital Signs 02/09/22 08:13 Temperature 98.2 F Pulse Rate 110 H Respiratory 20 Rate Blood Pressure 102/69 O2 Sat by Pulse 99 Oximetry Medical Decision Making - Medical Decision Making 31-year-old presented for chronic issues with no acute changes. Patient's old provided antiemetics will be discharged in stable condition with follow-up with her GI physician she is scheduled within the week return parameters were discussed. Disposition Clinical Impression: Abdominal pain Disposition: HOME SELF-CARE Condition: Stable Instructions (If sedation given, give patient instructions): Abdominal Pain (ED) Additional Instructions: Please return to the Emergency Department if symptoms worsen or any other concerns. Is patient prescribed a controlled substance at d/c from ED?: No Referrals: Isi Carolina MD [Primary Care Provider] - 1-2 days Time of Disposition: 08:30
[2022-02-09 08:46] VITALS: BP 139/57; PULSE 97; RESP 16
== END 2022-02-09 08:54 | disposition home or self-care (01) ==
LOC: EC 08:10
DX: R10.9 Unspecified abdominal pain (principal); E11.9 Type 2 diabetes mellitus without complications; K21.9 Gastro-esophageal reflux disease without esophagitis; J45.909 Unspecified asthma, uncomplicated; Z91.040 Latex allergy status; Z91.030 Bee allergy status; Z91.018 Allergy to other foods; Z88.2 Allergy status to sulfonamides; Z88.5 Allergy status to narcotic agent; Z88.1 Allergy status to other antibiotic agents; Z88.6 Allergy status to analgesic agent; Z91.038 Other insect allergy status; Z88.8 Allergy status to other drugs, medicaments and biological substances; Z79.899 Other long term (current) drug therapy; Z79.84 Long term (current) use of oral hypoglycemic drugs; Z20.822 Contact with and (suspected) exposure to COVID-19
CPT/HCPCS: 99284; 96372; J1200; J3250; J1885

== ENCOUNTER 2022-02-13 01:34 | Emergency (ER) | payer OTHER ==
[2022-02-13 01:46] VITALS: BP 147/97; PULSE 108; RESP 18; TEMP 98.1
[2022-02-13] MEDS ORDERED: HYDROmorphone 0.5 MG/0.5 ML SYRINGE IM STA (01:58)
[2022-02-13] MEDS ORDERED: KETOROLAC 15 MG/ML 1 ML VIAL IM STA (01:58)
--- NOTE | 2022-02-13 02:01 | ED ---
General Adult HPI - General Chief complaint: Back Pain/Injury Stated complaint: Back pain, Abd pain Time Seen by Provider: 02/13/22 01:49 Source: patient, RN notes reviewed, old records reviewed Mode of arrival: ambulatory - History of Present Illness Initial comments: 31-year-old female chronic abdominal pain, chronic back pain presented for evaluation of back pain and right upper quadrant pain. Patient had her gallbladder removed about 6 months ago. She states she has near daily abdominal pain. She also has chronic back pain issues but states she injured her back after work 1 day ago. No bowel or bladder incontinence. No fever. She's had some nausea associated with her abdominal pain. No vomiting. - Related Data Home Medications Medication Instructions Recorded Confirmed ARIPiprazole IM SYRINGE [Abilify 400 mg IM Q30D 07/28/21 11/16/21 Maintena Syringe] Ibuprofen [Motrin] 800 mg PO Q8H PRN 11/16/21 11/16/21 Omeprazole 20 mg PO DAILY 11/16/21 11/16/21 Prochlorperazine [Compazine] 5 mg PO Q12H PRN 11/16/21 11/16/21 Propranolol HCl 20 mg PO DAILY 11/16/21 11/16/21 QUEtiapine FUMARATE [SEROquel XR] 600 mg PO HS 11/16/21 11/16/21 sitaGLIPtin [Januvia] 50 mg PO DAILY 11/16/21 11/16/21 Previous Rx's Medication Instructions Recorded Sucralfate [Carafate] 1 gm PO BID 10 Days #200 ml 11/27/21 Allergies Allergy/AdvReac Type Severity Reaction Status Date / Time bee pollen Allergy Severe Anaphylaxis Verified 02/13/22 01:46 haloperidol [From Haldol] Allergy Severe QUIT Verified 02/13/22 01:46 BREATHING haloperidol lactate Allergy Severe QUIT Verified 02/13/22 01:46 [From Haldol] BREATHING latex Allergy Severe RASH-THROAT Verified 02/13/22 01:46 CLOSES [place] Allergy Anaphylaxis Verified 02/13/22 01:46 coconut Allergy Anaphylaxis Verified 02/13/22 01:46 morphine Allergy Rash/Hives Verified 02/13/22 01:46 pineapple Allergy Anaphylaxis Verified 02/13/22 01:46 prednisone Allergy THROAT Verified 02/13/22 01:46 SWELLS spider venom Allergy Swelling Verified 02/13/22 01:46 Sulfa (Sulfonamide Allergy THROAT Verified 02/13/22 01:46 Antibiotics) SWELLS venom-wasp Allergy Swelling Verified 02/13/22 01:46 venom-wasp protein Allergy Swelling Verified 02/13/22 01:46 promethazine HCl AdvReac Severe Nausea & Verified 02/13/22 01:46 [From Phenergan] Vomiting tramadol AdvReac Severe Nausea & Verified 02/13/22 01:46 Vomiting amoxicillin AdvReac Nausea & Verified 02/13/22 01:46 Vomiting ANTS AdvReac Mild Anaphylaxis Uncoded 02/09/22 08:16 Review of Systems ROS Statement: Those systems with pertinent positive or pertinent negative responses have been documented in the HPI. ROS Other: All systems not noted in ROS Statement are negative. Past Medical History Past Medical History: Asthma, Diabetes Mellitus, GERD/Reflux Additional Past Medical History / Comment(s): migraines, degenerative disk disease, endometriosis, lupus, pancreatitis, DM2- insulin History of Any Multi-Drug Resistant Organisms: None Reported Past Surgical History: Cholecystectomy, Orthopedic Surgery Additional Past Surgical History / Comment(s): laparoscopc surgery for endometriosis, cyst removed from left foot, EGD, Past Anesthesia/Blood Transfusion Reactions: Previous Problems w/ Anesthesia Additional Past Anesthesia/Blood Transfusion Reaction / Comment(s): hard to wake up for 48-72 hours after laparoscopic surgery-was in hosp. for 3 days Past Psychological History: Anxiety, Depression, PTSD Smoking Status: Vaper Past Alcohol Use History: None Reported Past Drug Use History: None Reported - Past Family History Mother Family Medical History: No Reported History Additional Family Medical History / Comment(s): hx migraines Father Family Medical History: Coronary Artery Disease (CAD), Hypertension Additional Family Medical History / Comment(s): ddd, alcoholism & drug use General Exam General appearance: alert, in no apparent distress Head exam: Present: atraumatic, normocephalic Eye exam: Present: normal appearance, PERRL ENT exam: Present: mucous membranes moist Neck exam: Present: normal inspection. Absent: tenderness, meningismus Respiratory exam: Present: normal lung sounds bilaterally. Absent: respiratory distress, wheezes Cardiovascular Exam: Present: regular rate, normal rhythm GI/Abdominal exam: Present: soft, tenderness (Mild right upper quadrant tenderness). Absent: distended Extremities exam: Present: normal inspection, normal capillary refill Back exam: Present: paraspinal tenderness (Lumbar) Neurological exam: Present: alert, oriented X3, CN II-XII intact, motor sensory deficit, reflexes normal Psychiatric exam: Present: normal affect, normal mood Skin exam: Present: warm, dry, intact. Absent: cyanosis, diaphoretic Course Vital Signs 02/13/22 01:42 Temperature 98.1 F Pulse Rate 108 H Respiratory 18 Rate Blood Pressure 147/97 O2 Sat by Pulse 99 Oximetry Medical Decision Making - Medical Decision Making 31-year-old female with acute on chronic back pain and abdominal pain. Vital signs are stable. No alarming features on history or physical exam. Patient's given pain medication emergency department and should follow-up with her primary care physician regarding her symptoms. She does have a history of chronic pancreatitis and is instructed to be on a clear liquid diet take her home medications for pain. Disposition Clinical Impression: Chronic pain Disposition: HOME SELF-CARE Condition: Fair Instructions (If sedation given, give patient instructions): Chronic Pain (ED), Acute Low Back Pain (ED) Is patient prescribed a controlled substance at d/c from ED?: No Referrals: Isi Carolina MD [Primary Care Provider] - 1-2 days Time of Disposition: 02:01
== END 2022-02-13 02:57 | disposition home or self-care (01) ==
LOC: EC 01:34
DX: G89.29 Other chronic pain (principal); F12.90 Cannabis use, unspecified, uncomplicated; Z91.030 Bee allergy status; Z88.8 Allergy status to other drugs, medicaments and biological substances; Z91.040 Latex allergy status; Z91.018 Allergy to other foods; Z91.038 Other insect allergy status; Z88.2 Allergy status to sulfonamides
CPT/HCPCS: 99283; 96372 ×2; J1885; J1170

== ENCOUNTER 2022-02-14 20:21 | Emergency (ER) | payer OTHER ==
[2022-02-14 20:31] VITALS: RESP 18; TEMP 98.3
--- NOTE | 2022-02-14 22:25 | ED ---
Recheck HPI - General Chief Complaint: Headache Stated Complaint: Abd pain,headache Time Seen by Provider: 02/14/22 21:43 Source: patient, RN notes reviewed, old records reviewed Mode of arrival: ambulatory Limitations: no limitations - History of Present Illness Initial Comments: This is a 31-year-old female to the emergency department for evaluation p resented today for evaluation regards to multiple complaints headache abdominal pain nausea and vomiting all symptoms patient's resents our ER before multiple times. Patient has no significant acute findings here in the emergency room and either exam or vital signs. Patient does have persistent follow-up with both primary care and GI. MD Complaint: medication refill request -: hour(s) Returns Today for: persistent/worsening pain related to initial visit Symptoms Since Prior Visit: worsening pain Associated Symptoms: malaise, nausea, abdominal pain Treatments Prior to Arrival: Given Pain Meds on - Related Data Home Medications Medication Instructions Recorded Confirmed ARIPiprazole IM SYRINGE [Abilify 400 mg IM Q30D 07/28/21 11/16/21 Maintena Syringe] Ibuprofen [Motrin] 800 mg PO Q8H PRN 11/16/21 11/16/21 Omeprazole 20 mg PO DAILY 11/16/21 11/16/21 Prochlorperazine [Compazine] 5 mg PO Q12H PRN 11/16/21 11/16/21 Propranolol HCl 20 mg PO DAILY 11/16/21 11/16/21 QUEtiapine FUMARATE [SEROquel XR] 600 mg PO HS 11/16/21 11/16/21 sitaGLIPtin [Januvia] 50 mg PO DAILY 11/16/21 11/16/21 Previous Rx's Medication Instructions Recorded Sucralfate [Carafate] 1 gm PO BID 10 Days #200 ml 11/27/21 Allergies Allergy/AdvReac Type Severity Reaction Status Date / Time bee pollen Allergy Severe Anaphylaxis Verified 02/14/22 20:30 haloperidol [From Haldol] Allergy Severe QUIT Verified 02/14/22 20:30 BREATHING haloperidol lactate Allergy Severe QUIT Verified 02/14/22 20:30 [From Haldol] BREATHING latex Allergy Severe RASH-THROAT Verified 02/14/22 20:30 CLOSES murri[place] Allergy Anaphylaxis Verified 02/14/22 20:30 coconut Allergy Anaphylaxis Verified 02/14/22 20:30 morphine Allergy Rash/Hives Verified 02/14/22 20:30 pineapple Allergy Anaphylaxis Verified 02/14/22 20:30 prednisone Allergy THROAT Verified 02/14/22 20:30 SWELLS spider venom Allergy Swelling Verified 02/14/22 20:30 Sulfa (Sulfonamide Allergy THROAT Verified 02/14/22 20:30 Antibiotics) SWELLS venom-wasp Allergy Swelling Verified 02/14/22 20:30 venom-wasp protein Allergy Swelling Verified 02/14/22 20:30 promethazine HCl AdvReac Severe Nausea & Verified 02/14/22 20:30 [From Phenergan] Vomiting tramadol AdvReac Severe Nausea & Verified 02/14/22 20:30 Vomiting amoxicillin AdvReac Nausea & Verified 02/14/22 20:30 Vomiting ANTS AdvReac Mild Anaphylaxis Uncoded 02/14/22 20:30 Review of Systems ROS Statement: Those systems with pertinent positive or pertinent negative responses have been documented in the HPI. ROS Other: All systems not noted in ROS Statement are negative. Past Medical History Past Medical History: Asthma, Diabetes Mellitus, GERD/Reflux Additional Past Medical History / Comment(s): migraines, degenerative disk dise ase, endometriosis, lupus, pancreatitis, DM2- insulin History of Any Multi-Drug Resistant Organisms: None Reported Past Surgical History: Cholecystectomy, Orthopedic Surgery Additional Past Surgical History / Comment(s): laparoscopc surgery for endometriosis, cyst removed from left foot, EGD, Past Anesthesia/Blood Transfusion Reactions: Previous Problems w/ Anesthesia Additional Past Anesthesia/Blood Transfusion Reaction / Comment(s): hard to wake up for 48-72 hours after laparoscopic surgery-was in hosp. for 3 days Past Psychological History: Anxiety, Depression, PTSD Smoking Status: Vaper Past Alcohol Use History: None Reported Past Drug Use History: None Reported - Past Family History Mother Family Medical History: No Reported History Additional Family Medical History / Comment(s): hx migraines Father Family Medical History: Coronary Artery Disease (CAD), Hypertension Additional Family Medical History / Comment(s): ddd, alcoholism & drug use General Exam Limitations: no limitations General appearance: alert, in no apparent distress, anxious, obese Head exam: Present: atraumatic, normocephalic, normal inspection Eye exam: Present: normal appearance, PERRL, EOMI. Absent: scleral icterus, conjunctival injection, periorbital swelling ENT exam: Present: normal exam, mucous membranes moist Neck exam: Present: normal inspection. Absent: tenderness, meningismus, lymphadenopathy Respiratory exam: Present: normal lung sounds bilaterally. Absent: respiratory distress, wheezes, rales, rhonchi, stridor Cardiovascular Exam: Present: normal rhythm, tachycardia, normal heart sounds. Absent: systolic murmur, diastolic murmur, rubs, gallop, clicks GI/Abdominal exam: Present: soft, normal bowel sounds. Absent: distended, tenderness, guarding, rebound, rigid Extremities exam: Present: normal inspection, full ROM, normal capillary refill. Absent: tenderness, pedal edema, joint swelling, calf tenderness Back exam: Present: normal inspection Neurological exam: Present: alert, oriented X3, CN II-XII intact Psychiatric exam: Present: normal affect, normal mood Skin exam: Present: warm, dry, intact, normal color. Absent: rash Course Vital Signs 02/14/22 20:29 Temperature 98.3 F Pulse Rate 107 H Respiratory 18 Rate Blood Pressure 154/90 O2 Sat by Pulse 98 Oximetry - Reevaluation(s) Reevaluation #1: 02/15/22 00:20 Medical record is reviewed Reevaluation #2: 02/15/22 00:20 Patient's symptoms improved here in the ER Reevaluation #3: 02/15/22 00:20 Patient informed results and questions answered Medical Decision Making - Medical Decision Making 31-year-old female well-known to our ER for abdominal pain today and migraine headaches. The symptoms are resolved and she can be discharged home Disposition Clinical Impression: Nausea & vomiting, Chronic pain, Abdominal pain, Migraine headache Disposition: HOME SELF-CARE Condition: Fair Instructions (If sedation given, give patient instructions): Abdominal Pain (E D) Is patient prescribed a controlled substance at d/c from ED?: No Referrals: Isi Carolina MD [Primary Care Provider] - 1-2 days Time of Disposition: 00:20
[2022-02-14] MEDS ORDERED: IBUPROFEN 800 MG TAB PO STA (23:02)
[2022-02-14] MEDS ORDERED: HYDROmorphone 1 MG/ML 1 ML SYRINGE IM STA (23:02)
[2022-02-14] MEDS ORDERED: METOCLOPRAMIDE 10 MG TAB PO STA (23:02)
[2022-02-14] MEDS ORDERED: diphenhydrAMINE 50 MG CAP PO STA (23:02)
[2022-02-14] MEDS ORDERED: PROCHLORPERAZINE 5 MG TAB PO STA (23:02)
[2022-02-15] MEDS ORDERED: LORazepam 1 MG TAB PO STA (00:40)
[2022-02-15] MEDS ORDERED: HYDROcodone/APAP 10-325MG 1 EACH TAB PO ONE (00:40)
[2022-02-15 00:53] VITALS: BP 148/90; PULSE 98
== END 2022-02-15 00:52 | disposition home or self-care (01) ==
LOC: EC 20:21
DX: R10.9 Unspecified abdominal pain (principal); G43.909 Migraine, unspecified, not intractable, without status migrainosus; G89.29 Other chronic pain; J45.909 Unspecified asthma, uncomplicated; E11.9 Type 2 diabetes mellitus without complications; K21.9 Gastro-esophageal reflux disease without esophagitis; F41.9 Anxiety disorder, unspecified; F32.A Depression, unspecified; F17.290 Nicotine dependence, other tobacco product, uncomplicated; Z79.83 Long term (current) use of bisphosphonates; Z79.899 Other long term (current) drug therapy; Z91.030 Bee allergy status; Z91.040 Latex allergy status; Z91.018 Allergy to other foods; Z88.2 Allergy status to sulfonamides; Z88.0 Allergy status to penicillin; Z88.8 Allergy status to other drugs, medicaments and biological substances; Z88.5 Allergy status to narcotic agent; Z88.6 Allergy status to analgesic agent
CPT/HCPCS: 99284; 96372; S0183; J1170; 99283

== ENCOUNTER 2022-02-21 07:18 | Emergency (ER) | payer OTHER ==
[2022-02-21 07:32] VITALS: TEMP 98.5
[2022-02-21] MEDS ORDERED: diphenhydrAMINE 50 MG/ML 1 ML VIAL IM STA (08:39)
[2022-02-21] MEDS ORDERED: METOCLOPRAMIDE 5 MG/ML 2 ML VIAL IM STA (08:39)
[2022-02-21] MEDS ORDERED: KETOROLAC 15 MG/ML 1 ML VIAL IM STA (08:39)
--- NOTE | 2022-02-21 08:42 | ED ---
General Adult HPI - General Chief complaint: Back Pain/Injury Stated complaint: Abd Pain, headache, Back Pain Time Seen by Provider: 02/21/22 08:15 Source: patient, RN notes reviewed, old records reviewed (Multiple previous visits for similar complaints) Mode of arrival: ambulatory Limitations: no limitations - History of Present Illness Initial comments: Patient is a pleasant 31-year-old female presenting to emergency department with concerns for chronic headache, chronic abdominal pain, and chronic back pain. Patient requests Reglan, Toradol, and Benadryl. Patient states these usually help her especially for her headache. Most of her symptoms started exacerbating again yesterday. Symptoms are all consistent with her chronic pain. No weakn ess. No incontinence. No confusion. Patient does have nausea. No loss of control of bowel or bladder. - Related Data Home Medications Medication Instructions Recorded Confirmed ARIPiprazole IM SYRINGE [Abilify 400 mg IM Q30D 07/28/21 11/16/21 Maintena Syringe] Ibuprofen [Motrin] 800 mg PO Q8H PRN 11/16/21 11/16/21 Omeprazole 20 mg PO DAILY 11/16/21 11/16/21 Prochlorperazine [Compazine] 5 mg PO Q12H PRN 11/16/21 11/16/21 Propranolol HCl 20 mg PO DAILY 11/16/21 11/16/21 QUEtiapine FUMARATE [SEROquel XR] 600 mg PO HS 11/16/21 11/16/21 sitaGLIPtin [Januvia] 50 mg PO DAILY 11/16/21 11/16/21 Previous Rx's Medication Instructions Recorded Sucralfate [Carafate] 1 gm PO BID 10 Days #200 ml 11/27/21 Allergies Allergy/AdvReac Type Severity Reaction Status Date / Time bee pollen Allergy Severe Anaphylaxis Verified 02/21/22 07:33 haloperidol [From Haldol] Allergy Severe QUIT Verified 02/21/22 07:33 BREATHING haloperidol lactate Allergy Severe QUIT Verified 02/21/22 07:33 [From Haldol] BREATHING latex Allergy Severe RASH-THROAT Verified 02/21/22 07:33 CLOSES [place] Allergy Anaphylaxis Verified 02/21/22 07:33 coconut Allergy Anaphylaxis Verified 02/21/22 07:33 morphine Allergy Rash/Hives Verified 02/21/22 07:33 pineapple Allergy Anaphylaxis Verified 02/21/22 07:33 prednisone Allergy THROAT Verified 02/21/22 07:33 SWELLS spider venom Allergy Swelling Verified 02/21/22 07:33 Sulfa (Sulfonamide Allergy THROAT Verified 02/21/22 07:33 Antibiotics) SWELLS venom-wasp Allergy Swelling Verified 02/21/22 07:33 venom-wasp protein Allergy Swelling Verified 02/21/22 07:33 promethazine HCl AdvReac Severe Nausea & Verified 02/21/22 07:33 [From Phenergan] Vomiting tramadol AdvReac Severe Nausea & Verified 02/21/22 07:33 Vomiting amoxicillin AdvReac Nausea & Verified 02/21/22 07:33 Vomiting ANTS AdvReac Mild Anaphylaxis Uncoded 02/21/22 07:33 Review of Systems ROS Statement: Those systems with pertinent positive or pertinent negative responses have been documented in the HPI. ROS Other: All systems not noted in ROS Statement are negative. Constitutional: Denies: fever Eyes: Denies: eye pain ENT: Denies: ear pain Respiratory: Denies: cough Cardiovascular: Denies: chest pain Endocrine: Denies: fatigue Gastrointestinal: Reports: as per HPI, abdominal pain Genitourinary: Denies: dysuria Musculoskeletal: Reports: as per HPI, back pain Skin: Denies: rash Neurological: Reports: as per HPI, headache. Denies: weakness, confusion Past Medical History Past Medical History: Asthma, Diabetes Mellitus, GERD/Reflux Additional Past Medical History / Comment(s): migraines, degenerative disk disease, endometriosis, lupus, pancreatitis, DM2- insulin History of Any Multi-Drug Resistant Organisms: None Reported Past Surgical History: Cholecystectomy, Orthopedic Surgery Additional Past Surgical History / Comment(s): laparoscopc surgery for endometriosis, cyst removed from left foot, EGD, Past Anesthesia/Blood Transfusion Reactions: Previous Problems w/ Anesthesia Additional Past Anesthesia/Blood Transfusion Reaction / Comment(s): hard to wake up for 48-72 hours after laparoscopic surgery-was in hosp. for 3 days Past Psychological History: Anxiety, Depression, PTSD Smoking Status: Vaper Past Alcohol Use History: None Reported Past Drug Use History: None Reported - Past Family History Mother Family Medical History: No Reported History Additional Family Medical History / Comment(s): hx migraines Father Family Medical History: Coronary Artery Disease (CAD), Hypertension Additional Family Medical History / Comment(s): ddd, alcoholism & drug use General Exam Limitations: no limitations General appearance: alert, in no apparent distress Head exam: Present: normocephalic Eye exam: Present: normal appearance, PERRL, EOMI ENT exam: Present: normal oropharynx Neck exam: Present: normal inspection. Absent: tenderness Respiratory exam: Present: normal lung sounds bilaterally Cardiovascular Exam: Present: regular rate, normal rhythm Expanded Peripheral pulses: 2+: Posterior Tibialis (R), Posterior Tibialis (L) GI/Abdominal exam: Present: soft. Absent: distended, tenderness, pulsatile mass Extremities exam: Present: normal inspection Back exam: Present: tenderness (Mild tenderness diffuse lumbar) Neurological exam: Present: alert, oriented X3, CN II-XII intact. Absent: motor sensory deficit Expanded Neurological exam: Present: protecting the airway Cranial nerves: EOM's Intact: Normal Motor strength exam: RUE: 5, LUE: 5, RLE: 5, LLE: 5 Eye Response: (4) open spontaneously Motor Response: (6) obeys commands Verbal Response: (5) oriented Psychiatric exam: Present: normal affect, normal mood Skin exam: Present: normal color Course Vital Signs 02/21/22 07:30 Temperature 98.5 F Pulse Rate 103 H Respiratory 20 Rate Blood Pressure 139/89 O2 Sat by Pulse 97 Oximetry Disposition Clinical Impression: Chronic pain Disposition: HOME SELF-CARE Condition: Stable Instructions (If sedation given, give patient instructions): Chronic Pain (ED) Additional Instructions: Please do follow-up with your primary care physician in the next day or 2 for recheck. Return for fever, weakness, loss of control of bowel or bladder, change or worsening of symptoms or any other concerns. Is patient prescribed a controlled substance at d/c from ED?: No Referrals: Isi Carolina MD [Primary Care Provider] - 1-2 days Time of Disposition: 08:42
[2022-02-21 09:10] VITALS: BP 136/88; PULSE 96; RESP 18
== END 2022-02-21 09:08 | disposition home or self-care (01) ==
LOC: EC 07:18
DX: G89.29 Other chronic pain (principal); J45.909 Unspecified asthma, uncomplicated; E11.9 Type 2 diabetes mellitus without complications; K21.9 Gastro-esophageal reflux disease without esophagitis; F41.9 Anxiety disorder, unspecified; F32.A Depression, unspecified; Z88.0 Allergy status to penicillin; Z88.2 Allergy status to sulfonamides; Z88.5 Allergy status to narcotic agent; Z88.8 Allergy status to other drugs, medicaments and biological substances
CPT/HCPCS: 99283; 96372 ×3; J1200; J2765; J1885

== ENCOUNTER 2022-02-22 07:15 | Emergency (ER) | payer OTHER ==
[2022-02-22 07:26] VITALS: BP 123/89; PULSE 104; RESP 20; TEMP 98
[2022-02-22] MEDS ORDERED: ONDANSETRON ODT 4 MG TAB PO STA (07:36)
--- NOTE | 2022-02-22 07:39 | ED ---
General Adult HPI - General Chief complaint: Nausea/Vomiting/Diarrhea Stated complaint: Nausea Time Seen by Provider: 02/22/22 07:29 Source: patient, RN notes reviewed Mode of arrival: ambulatory Limitations: no limitations - History of Present Illness Initial comments: Patient is a pleasant 31-year-old female presenting to the emergency department with nausea. Patient states this is a chronic problem for her. Patient states this has been occurring also over the last 3 days. Patient states she has tried Reglan and Bentyl and Protonix without improvement. Patient states usually Zofran works best for her. Patient states there is some discomfort. No constipation or diarrhea. No vomiting. - Related Data Home Medications Medication Instructions Recorded Confirmed ARIPiprazole IM SYRINGE [Abilify 400 mg IM Q30D 07/28/21 11/16/21 Maintena Syringe] Ibuprofen [Motrin] 800 mg PO Q8H PRN 11/16/21 11/16/21 Omeprazole 20 mg PO DAILY 11/16/21 11/16/21 Prochlorperazine [Compazine] 5 mg PO Q12H PRN 11/16/21 11/16/21 Propranolol HCl 20 mg PO DAILY 11/16/21 11/16/21 QUEtiapine FUMARATE [SEROquel XR] 600 mg PO HS 11/16/21 11/16/21 sitaGLIPtin [Januvia] 50 mg PO DAILY 11/16/21 11/16/21 Previous Rx's Medication Instructions Recorded Sucralfate [Carafate] 1 gm PO BID 10 Days #200 ml 11/27/21 Allergies Allergy/AdvReac Type Severity Reaction Status Date / Time bee pollen Allergy Severe Anaphylaxis Verified 02/22/22 07:26 haloperidol [From Haldol] Allergy Severe QUIT Verified 02/22/22 07:26 BREATHING haloperidol lactate Allergy Severe QUIT Verified 02/22/22 07:26 [From Haldol] BREATHING latex Allergy Severe RASH-THROAT Verified 02/22/22 07:26 CLOSES [place] Allergy Anaphylaxis Verified 02/22/22 07:26 coconut Allergy Anaphylaxis Verified 02/22/22 07:26 morphine Allergy Rash/Hives Verified 02/22/22 07:26 pineapple Allergy Anaphylaxis Verified 02/22/22 07:26 prednisone Allergy THROAT Verified 02/22/22 07:26 SWELLS spider venom Allergy Swelling Verified 02/22/22 07:26 Sulfa (Sulfonamide Allergy THROAT Verified 02/22/22 07:26 Antibiotics) SWELLS venom-wasp Allergy Swelling Verified 02/22/22 07:26 venom-wasp protein Allergy Swelling Verified 02/22/22 07:26 promethazine HCl AdvReac Severe Nausea & Verified 02/22/22 07:26 [From Phenergan] Vomiting tramadol AdvReac Severe Nausea & Verified 02/22/22 07:26 Vomiting amoxicillin AdvReac Nausea & Verified 02/22/22 07:26 Vomiting ANTS AdvReac Mild Anaphylaxis Uncoded 02/22/22 07:26 Review of Systems ROS Statement: Those systems with pertinent positive or pertinent negative responses have been documented in the HPI. ROS Other: All systems not noted in ROS Statement are negative. Constitutional: Denies: fever Eyes: Denies: eye pain ENT: Denies: ear pain Respiratory: Denies: cough Cardiovascular: Denies: chest pain Endocrine: Denies: fatigue Gastrointestinal: Reports: as per HPI Genitourinary: Denies: dysuria Past Medical History Past Medical History: Asthma, Diabetes Mellitus, GERD/Reflux Additional Past Medical History / Comment(s): migraines, degenerative disk disease, endometriosis, lupus, pancreatitis, DM2- insulin History of Any Multi-Drug Resistant Organisms: None Reported Past Surgical History: Cholecystectomy, Orthopedic Surgery Additional Past Surgical History / Comment(s): laparoscopc surgery for endometriosis, cyst removed from left foot, EGD, Past Anesthesia/Blood Transfusion Reactions: Previous Problems w/ Anesthesia Additional Past Anesthesia/Blood Transfusion Reaction / Comment(s): hard to wake up for 48-72 hours after laparoscopic surgery-was in hosp. for 3 days Past Psychological History: Anxiety, Depression, PTSD Smoking Status: Vaper Past Alcohol Use History: None Reported Past Drug Use History: None Reported - Past Family History Mother Family Medical History: No Reported History Additional Family Medical History / Comment(s): hx migraines Father Family Medical History: Coronary Artery Disease (CAD), Hypertension Additional Family Medical History / Comment(s): ddd, alcoholism & drug use General Exam Limitations: no limitations General appearance: alert, in no apparent distress Head exam: Present: normocephalic Eye exam: Present: normal appearance Neck exam: Present: normal inspection Respiratory exam: Present: normal lung sounds bilaterally Cardiovascular Exam: Present: regular rate, normal rhythm GI/Abdominal exam: Present: soft, normal bowel sounds. Absent: distended, tenderness, guarding, rebound, rigid, pulsatile mass Extremities exam: Present: normal inspection Neurological exam: Present: alert Psychiatric exam: Present: normal affect, normal mood Skin exam: Present: normal color Course Vital Signs 02/22/22 07:24 Temperature 98 F Pulse Rate 104 H Respiratory 20 Rate Blood Pressure 123/89 O2 Sat by Pulse 99 Oximetry Medical Decision Making - Medical Decision Making Discussion had with patient regarding evaluation and treatment. Patient would like Zofran ODT. Patient is agreeable to close follow-up with her primary care physician. Disposition Clinical Impression: Nausea Disposition: HOME SELF-CARE Condition: Stable Instructions (If sedation given, give patient instructions): Acute Nausea and Vomiting (ED) Additional Instructions: Please do follow-up to primary care physician in the next day or 2 for recheck. Return for increased pain, vomiting, fever, worsening or change in symptoms or other concerns. Is patient prescribed a controlled substance at d/c from ED?: No Referrals: sIi Carolina MD [Primary Care Provider] - 1-2 days Time of Disposition: 07:39
== END 2022-02-22 07:53 | disposition home or self-care (01) ==
LOC: EC 07:15
DX: R11.0 Nausea (principal); K21.9 Gastro-esophageal reflux disease without esophagitis; J45.909 Unspecified asthma, uncomplicated; E11.9 Type 2 diabetes mellitus without complications; F32.A Depression, unspecified; F41.9 Anxiety disorder, unspecified; F43.10 Post-traumatic stress disorder, unspecified; F17.290 Nicotine dependence, other tobacco product, uncomplicated; Z79.84 Long term (current) use of oral hypoglycemic drugs; Z79.899 Other long term (current) drug therapy; Z88.0 Allergy status to penicillin; Z88.1 Allergy status to other antibiotic agents; Z88.2 Allergy status to sulfonamides; Z88.6 Allergy status to analgesic agent; Z91.018 Allergy to other foods; Z88.8 Allergy status to other drugs, medicaments and biological substances
CPT/HCPCS: 99282

== ENCOUNTER 2022-02-24 21:28 | Emergency (ER) | payer BC, OTHER ==
[2022-02-24] MEDS ORDERED: HYDROmorphone 1 MG/ML 1 ML SYRINGE IM STA (21:52)
[2022-02-24] MEDS ORDERED: METOCLOPRAMIDE 10 MG TAB PO STA (21:52)
[2022-02-24] MEDS ORDERED: diphenhydrAMINE 50 MG CAP PO STA (21:52)
[2022-02-24] MEDS ORDERED: PROCHLORPERAZINE 5 MG TAB PO STA (21:52)
--- NOTE | 2022-02-24 21:53 | ED ---
Recheck HPI - General Chief Complaint: Abdominal Pain Stated Complaint: Abd pain Time Seen by Provider: 02/24/22 21:34 Source: patient, RN notes reviewed, old records reviewed Mode of arrival: ambulatory Limitations: no limitations - History of Present Illness Initial Comments: This is a 31-year-old female to the emergency department for evaluation she comes in for chronic migraines headaches. Patient has multiple visits per month. Patient denying any psychiatric illness. Not homicidal or suicidal no change in medications no change in character of pain MD Complaint: other -: hour(s) Returns Today for: Called Because of Abnormal Lab/Test, persistent/worsening pain related to initial visit Symptoms Since Prior Visit: no new symptoms, worsening pain Associated Symptoms: nausea Treatments Prior to Arrival: Given Pain Meds on - Related Data Home Medications Medication Instructions Recorded Confirmed ARIPiprazole IM SYRINGE [Abilify 400 mg IM Q30D 07/28/21 11/16/21 Maintena Syringe] Ibuprofen [Motrin] 800 mg PO Q8H PRN 11/16/21 11/16/21 Omeprazole 20 mg PO DAILY 11/16/21 11/16/21 Prochlorperazine [Compazine] 5 mg PO Q12H PRN 11/16/21 11/16/21 Propranolol HCl 20 mg PO DAILY 11/16/21 11/16/21 QUEtiapine FUMARATE [SEROquel XR] 600 mg PO HS 11/16/21 11/16/21 sitaGLIPtin [Januvia] 50 mg PO DAILY 11/16/21 11/16/21 Previous Rx's Medication Instructions Recorded Sucralfate [Carafate] 1 gm PO BID 10 Days #200 ml 11/27/21 Allergies Allergy/AdvReac Type Severity Reaction Status Date / Time bee pollen Allergy Severe Anaphylaxis Verified 03/04/22 00:08 haloperidol [From Haldol] Allergy Severe QUIT Verified 03/04/22 00:08 BREATHING haloperidol lactate Allergy Severe QUIT Verified 03/04/22 00:08 [From Haldol] BREATHING latex Allergy Severe RASH-THROAT Verified 03/04/22 00:08 CLOSES [place] Allergy Anaphylaxis Verified 03/04/22 00:08 coconut Allergy Anaphylaxis Verified 03/04/22 00:08 morphine Allergy Rash/Hives Verified 03/04/22 00:08 pineapple Allergy Anaphylaxis Verified 03/04/22 00:08 prednisone Allergy THROAT Verified 03/04/22 00:08 SWELLS spider venom Allergy Swelling Verified 03/04/22 00:08 Sulfa (Sulfonamide Allergy THROAT Verified 03/04/22 00:08 Antibiotics) SWELLS venom-wasp Allergy Swelling Verified 03/04/22 00:08 venom-wasp protein Allergy Swelling Verified 03/04/22 00:08 promethazine HCl AdvReac Severe Nausea & Verified 03/04/22 00:08 [From Phenergan] Vomiting tramadol AdvReac Severe Nausea & Verified 03/04/22 00:08 Vomiting amoxicillin AdvReac Nausea & Verified 03/04/22 00:08 Vomiting ANTS AdvReac Mild Anaphylaxis Uncoded 03/04/22 00:08 Review of Systems ROS Statement: Those systems with pertinent positive or pertinent negative responses have been documented in the HPI. ROS Other: All systems not noted in ROS Statement are negative. Past Medical History Past Medical History: Asthma, Diabetes Mellitus, GERD/Reflux Additional Past Medical History / Comment(s): migraines, degenerative disk disease, endometriosis, lupus, pancreatitis, DM2- insulin History of Any Multi-Drug Resistant Organisms: None Reported Past Surgical History: Cholecystectomy, Orthopedic Surgery Additional Past Surgical History / Comment(s): laparoscopc surgery for end ometriosis, cyst removed from left foot, EGD, Past Anesthesia/Blood Transfusion Reactions: Previous Problems w/ Anesthesia Additional Past Anesthesia/Blood Transfusion Reaction / Comment(s): hard to wake up for 48-72 hours after laparoscopic surgery-was in hosp. for 3 days Past Psychological History: Anxiety, Depression, PTSD Smoking Status: Vaper Past Alcohol Use History: None Reported Past Drug Use History: None Reported - Past Family History Mother Family Medical History: No Reported History Additional Family Medical History / Comment(s): hx migraines Father Family Medical History: Coronary Artery Disease (CAD), Hypertension Additional Family Medical History / Comment(s): ddd, alcoholism & drug use General Exam Limitations: no limitations General appearance: alert, in no apparent distress, anxious Head exam: Present: atraumatic, normocephalic, normal inspection Eye exam: Present: normal appearance, PERRL, EOMI. Absent: scleral icterus, conjunctival injection, periorbital swelling ENT exam: Present: normal exam, mucous membranes moist Neck exam: Present: normal inspection. Absent: tenderness, meningismus, lymphadenopathy Respiratory exam: Present: normal lung sounds bilaterally. Absent: respiratory distress, wheezes, rales, rhonchi, stridor Cardiovascular Exam: Present: regular rate, normal rhythm, normal heart sounds. Absent: systolic murmur, diastolic murmur, rubs, gallop, clicks GI/Abdominal exam: Present: soft, normal bowel sounds. Absent: distended, tenderness, guarding, rebound, rigid Extremities exam: Present: normal inspection, full ROM, normal capillary refill. Absent: tenderness, pedal edema, joint swelling, calf tenderness Back exam: Present: normal inspection Neurological exam: Present: alert, oriented X3, CN II-XII intact Psychiatric exam: Present: normal affect, normal mood Skin exam: Present: warm, dry, intact, normal color. Absent: rash Course Vital Signs 02/24/22 02/24/22 21:29 22:49 Temperature 99.7 F H 97.7 F Pulse Rate 131 H 103 H Respiratory 20 16 Rate Blood Pressure 122/87 124/78 O2 Sat by Pulse 98 97 Oximetry - Reevaluation(s) Reevaluation #1: 02/25/22 medical record is reviewed patient symptoms are improved patient is imformed of results and questions answered Medical Decision Making - Medical Decision Making 31 female D to the emergency department F for evaluation. Patient symptoms are improved here in the ER she can be discharged home - Radiology Data Radiology results: report reviewed (X-ray KUB negative for acute disease), image reviewed Disposition Clinical Impression: Chronic pain, Abdominal pain of unknown etiology Disposition: HOME SELF-CARE Condition: Fair Instructions (If sedation given, give patient instructions): Abdominal Pain (ED) Is patient prescribed a controlled substance at d/c from ED?: No Referrals: Isi Carolina MD [Primary Care Provider] - 1-2 days Time of Disposition: 22:40
--- NOTE | 2022-02-24 22:33 | XR ---
EXAMINATION TYPE: XR KUB portable DATE OF EXAM: 02/24/2022 COMPARISON: 02/04/2022 HISTORY: Pain TECHNIQUE: 2 views upright FINDINGS: There is no sign of intestinal obstruction or pneumoperitoneum. Fecal pattern is normal. Th ere are clips from cholecystectomy. Lung bases are clear. No evidence of a mass. IMPRESSION: Nonacute abdomen. No change from
[2022-02-24 22:50] VITALS: BP 124/78; PULSE 103; RESP 16; TEMP 97.7
== END 2022-02-24 22:50 | disposition home or self-care (01) ==
LOC: EC 21:28
DX: R10.9 Unspecified abdominal pain (principal); G89.29 Other chronic pain; F41.9 Anxiety disorder, unspecified; F32.A Depression, unspecified; F17.290 Nicotine dependence, other tobacco product, uncomplicated; J45.909 Unspecified asthma, uncomplicated; E11.9 Type 2 diabetes mellitus without complications; K21.9 Gastro-esophageal reflux disease without esophagitis; Z79.83 Long term (current) use of bisphosphonates; Z91.030 Bee allergy status; Z88.8 Allergy status to other drugs, medicaments and biological substances; Z91.040 Latex allergy status; Z91.018 Allergy to other foods; Z88.6 Allergy status to analgesic agent; Z91.038 Other insect allergy status; Z88.2 Allergy status to sulfonamides; Z88.5 Allergy status to narcotic agent; Z88.0 Allergy status to penicillin
CPT/HCPCS: 74018; 99284; 96372; S0183; J1170

== ENCOUNTER 2022-03-01 08:45 | Emergency (ER) | payer BC, OTHER ==
[2022-03-01 09:11] VITALS: BP 141/88; PULSE 116; RESP 18; TEMP 98
[2022-03-01] MEDS ORDERED: ONDANSETRON 4 MG/2 ML VIAL IVP STA (09:20)
[2022-03-01] MEDS ORDERED: KETOROLAC 15 MG/ML 1 ML VIAL IVP STA (09:20)
[2022-03-01] MEDS ORDERED: SODIUM CHLORIDE 0.9% 1,000 ML IV STA (09:20)
[2022-03-01] MEDS ORDERED: diphenhydrAMINE 50 MG/ML 1 ML VIAL IVP STA (09:20)
--- NOTE | 2022-03-01 09:22 | ED ---
General Adult HPI - General Chief complaint: Headache Stated complaint: stomach pain Time Seen by Provider: 03/01/22 08:59 Source: patient Mode of arrival: ambulatory Limitations: no limitations - History of Present Illness Initial comments: Dictation was produced using [employer] dictation software. please excuse any grammatical, word or spelling errors. Chief Complaint: 31-year-old female well-known to emergency department presents emergency department for abdominal pain and headache History of Present Illness: Patient's 31-year-old female she has extensive history of migraines. Patient states that she woke up this morning with headache. States it feels that her usual headaches. Patient reports that a holocranial. Patient also complaining of acute onset abdominal pain since this morning as well. States that the left side. Patient has history of pancreatitis. Denies any fever or chills. Denies vomiting but does complain of some nausea. The ROS documented in this emergency department record has been reviewed and c onfirmed by me. Those systems with pertinent positive or negative responses have been documented in the HPI. All other systems are other negative and/or noncontributory. PHYSICAL EXAM: General Impression: Alert and oriented x3, not in acute distress HEENT: Normocephalic atraumatic, extra-ocular movements intact, pupils equal and reactive to light bilaterally, mucous membranes moist. Cardiovascular: Heart regular rate and rhythm Chest: Able to complete full sentences, no retractions, no tachypnea Abdomen: abdomen soft, reported palpatory tenderness to the left upper and left middle abdomen, non-distended, no organomegaly Musculoskeletal: Pulses present and equal in all extremities, no peripheral edema Motor: no focal deficits noted Neurological: CN II-XII grossly intact, no focal motor or sensory deficits noted Skin: Intact with no visualized rashes Psych: Normal affect and mood ED course: 31-year-old female presents emergency department for headache and abdominal pain. Patient's history of chronic abdominal pain and chronic headache. Signs upon arrival shows heart rate of 116, rest vital signs within acceptable limits. Laboratory evaluation obtained. Patient given headache cocktail reevaluated at bedside at 11:00 and found to be stable medical condition. Patient be dis charged. Critical Care: No Critical Care time: Not applicable - Related Data Home Medications Medication Instructions Recorded Confirmed ARIPiprazole IM SYRINGE [Abilify 400 mg IM Q30D 07/28/21 11/16/21 Maintena Syringe] Ibuprofen [Motrin] 800 mg PO Q8H PRN 11/16/21 11/16/21 Omeprazole 20 mg PO DAILY 11/16/21 11/16/21 Prochlorperazine [Compazine] 5 mg PO Q12H PRN 11/16/21 11/16/21 Propranolol HCl 20 mg PO DAILY 11/16/21 11/16/21 QUEtiapine FUMARATE [SEROquel XR] 600 mg PO HS 11/16/21 11/16/21 sitaGLIPtin [Januvia] 50 mg PO DAILY 11/16/21 11/16/21 Previous Rx's Medication Instructions Recorded Sucralfate [Carafate] 1 gm PO BID 10 Days #200 ml 11/27/21 Allergies Allergy/AdvReac Type Severity Reaction Status Date / Time bee pollen Allergy Severe Anaphylaxis Verified 03/01/22 09:09 haloperidol [From Haldol] Allergy Severe QUIT Verified 03/01/22 09:09 BREATHING haloperidol lactate Allergy Severe QUIT Verified 03/01/22 09:09 [From Haldol] BREATHING latex Allergy Severe RASH-THROAT Verified 03/01/22 09:09 CLOSES [place] Allergy Anaphylaxis Verified 03/01/22 09:09 coconut Allergy Anaphylaxis Verified 03/01/22 09:09 morphine Allergy Rash/Hives Verified 03/01/22 09:09 pineapple Allergy Anaphylaxis Verified 03/01/22 09:09 prednisone Allergy THROAT Verified 03/01/22 09:09 SWELLS spider venom Allergy Swelling Verified 03/01/22 09:09 Sulfa (Sulfonamide Allergy THROAT Verified 03/01/22 09:09 Antibiotics) SWELLS venom-wasp Allergy Swelling Verified 03/01/22 09:09 venom-wasp protein Allergy Swelling Verified 03/01/22 09:09 promethazine HCl AdvReac Severe Nausea & Verified 03/01/22 09:09 [From Phenergan] Vomiting tramadol AdvReac Severe Nausea & Verified 03/01/22 09:09 Vomiting amoxicillin AdvReac Nausea & Verified 03/01/22 09:09 Vomiting ANTS AdvReac Mild Anaphylaxis Uncoded 03/01/22 09:09 Review of Systems ROS Statement: Those systems with pertinent positive or pertinent negative responses have been documented in the HPI. ROS Other: All systems not noted in ROS Statement are negative. Past Medical History Past Medical History: Asthma, Diabetes Mellitus, GERD/Reflux Additional Past Medical History / Comment(s): migraines, degenerative disk disease, endometriosis, lupus, pancreatitis, DM2- insulin History of Any Multi-Drug Resistant Organisms: None Reported Past Surgical History: Cholecystectomy, Orthopedic Surgery Additional Past Surgical History / Comment(s): laparoscopc surgery for endometriosis, cyst removed from left foot, EGD, Past Anesthesia/Blood Transfusion Reactions: Previous Problems w/ Anesthesia Additional Past Anesthesia/Blood Transfusion Reaction / Comment(s): hard to wake up for 48-72 hours after laparoscopic surgery-was in hosp. for 3 days Past Psychological History: Anxiety, Depression, PTSD Smoking Status: Vaper Past Alcohol Use History: None Reported Past Drug Use History: None Reported - Past Family History Mother Family Medical History: No Reported History Additional Family Medical History / Comment(s): hx migraines Father Family Medical History: Coronary Artery Disease (CAD), Hypertension Additional Family Medical History / Comment(s): ddd, alcoholism & drug use General Exam Limitations: no limitations Course Vital Signs 03/01/22 09:07 Temperature 98 F Pulse Rate 116 H Respiratory 18 Rate Blood Pressure 141/88 O2 Sat by Pulse 100 Oximetry Medical Decision Making - Lab Data Result diagrams: 03/01/22 09:52 03/01/22 09:52 Lab Results 03/01/22 03/01/22 Range/Units 09:52 09:52 WBC 5.8 (3.8-10.6) k/uL RBC 3.87 (3.80-5.40) m/uL Hgb 11.6 (11.4-16.0) gm/dL Hct 34.0 (34.0-46.0) % MCV 88.0 (80.0-100.0) fL MCH 29.9 (25.0-35.0) pg MCHC 34.0 (31.0-37.0) g/dL RDW 14.6 (11.5-15.5) % Plt Count 274 (150-450) k/uL MPV 8.0 Neutrophils % 60 % Lymphocytes % 30 % Monocytes % 4 % Eosinophils % 3 % Basophils % 1 % Neutrophils # 3.5 (1.3-7.7) k/uL Lymphocytes # 1.8 (1.0-4.8) k/uL Monocytes # 0.2 (0-1.0) k/uL Eosinophils # 0.2 (0-0.7) k/uL Basophils # 0.0 (0-0.2) k/uL Sodium 138 (137-145) mmol/L Potassium 4.6 (3.5-5.1) mmol/L Chloride 110 H (98-107) mmol/L Carbon Dioxide 20 L (22-30) mmol/L Anion Gap 8 mmol/L BUN 11 (7-17) mg/dL Creatinine 0.67 (0.52-1.04) mg/dL Est GFR (CKD-EPI)AfAm >90 (>60 ml/min/1.73 sqM) Est GFR (CKD-EPI)NonAf >90 (>60 ml/min/1.73 sqM) Glucose 129 H (74-99) mg/dL Calcium 9.8 (8.4-10.2) mg/dL Total Bilirubin 0.4 (0.2-1.3) mg/dL AST 19 (14-36) U/L ALT 16 (4-34) U/L Alkaline Phosphatase 52 (38-126) U/L Total Protein 6.6 (6.3-8.2) g/dL Albumin 3.8 (3.5-5.0) g/dL Lipase 53 (23-300) U/L HCG, Quant <2.4 mIU/mL Disposition Clinical Impression: Headache Disposition: HOME SELF-CARE Condition: Good Instructions (If sedation given, give patient instructions): Migraine Headache (ED) Is patient prescribed a controlled substance at d/c from ED?: No Referrals: Isi Carolina MD [Primary Care Provider] - 1-2 days Time of Disposition: 11:02
[2022-03-01 09:59] LABS: Basophils % (A) 1 %; Eosinophils # (A) 0.2 k/uL (0-0.7); Eosinophils % (A) 3 %; HGB 11.6 gm/dL (11.4-16.0); Lymphocytes # (A) 1.8 k/uL (1.0-4.8); Lymphocytes % (A) 30 %; MCH 29.9 pg (25.0-35.0); Monocytes # (A) 0.2 k/uL (0-1.0); Monocytes % (A) 4 %; Neutrophils # (A) 3.5 k/uL (1.3-7.7); Neutrophils % (A) 60 %; Platelet Count 274 k/uL (150-450); RBC 3.87 m/uL (3.80-5.40); RDW 14.6 % (11.5-15.5); WBC 5.8 k/uL (3.8-10.6)
[2022-03-01 10:10] LABS: ALT 16 U/L (4-34); AST 19 U/L (14-36); African American GFR (CKD) >90 (>60 ml/min/1.73 sqM); Albumin 3.8 g/dL (3.5-5.0); Alkaline Phosphatase 52 U/L (38-126); Anion Gap 8 mmol/L; Blood Urea Nitrogen 11 mg/dL (7-17); Calcium 9.8 mg/dL (8.4-10.2); Carbon Dioxide 20 mmol/L (22-30); Chloride 110 mmol/L (98-107); Glucose 129 mg/dL (74-99); Lipase 53 U/L (23-300); Non-African American GFR(CKD) >90 (>60 ml/min/1.73 sqM); Potassium 4.6 mmol/L (3.5-5.1); Sodium 138 mmol/L (137-145); Total Bilirubin 0.4 mg/dL (0.2-1.3); Total Protein 6.6 g/dL (6.3-8.2)
[2022-03-01 10:26] LABS: HCG,Quantitative Serum <2.4 mIU/mL
[2022-03-01] MEDS ORDERED: ACETAMINOPHEN TAB 500 MG TAB PO STA (10:35)
== END 2022-03-01 11:45 | disposition home or self-care (01) ==
LOC: EC 08:45
DX: R51.9 Headache, unspecified (principal); Z86.69 Personal history of other diseases of the nervous system and sense organs; E11.9 Type 2 diabetes mellitus without complications; F32.A Depression, unspecified; F41.9 Anxiety disorder, unspecified; J45.909 Unspecified asthma, uncomplicated; K21.9 Gastro-esophageal reflux disease without esophagitis; Z88.0 Allergy status to penicillin; Z88.2 Allergy status to sulfonamides; Z88.5 Allergy status to narcotic agent; Z88.8 Allergy status to other drugs, medicaments and biological substances; Z91.040 Latex allergy status; Z91.030 Bee allergy status; Z91.018 Allergy to other foods; Z88.6 Allergy status to analgesic agent; Z91.038 Other insect allergy status; Z79.83 Long term (current) use of bisphosphonates
CPT/HCPCS: 36415; 80053; 83690; 85025; 84702; 99284; 96374; 96375 ×2; 96361 ×2; J1200; J2405; J1885; 99283

== ENCOUNTER 2022-03-04 00:05 | Emergency (ER) | payer BC, OTHER ==
[2022-03-04] MEDS ORDERED: METOCLOPRAMIDE 5 MG/ML 2 ML VIAL IM STA (00:22)
[2022-03-04] MEDS ORDERED: ONDANSETRON ODT 4 MG TAB PO STA (00:22)
[2022-03-04] MEDS ORDERED: diphenhydrAMINE 50 MG/ML 1 ML VIAL IM STA (00:22)
--- NOTE | 2022-03-04 00:39 | ED ---
Abdominal Pain HPI - General Chief Complaint: Abdominal Pain Stated Complaint: Abdominal Pain, Vomiting Time Seen by Provider: 03/04/22 00:12 Source: patient, RN notes reviewed Mode of arrival: ambulatory Limitations: no limitations - History of Present Illness Initial Comments: This is a 31-year-old female who is well-known to emergency department. Pr esenting with recurrent abdominal pain and headache which is essentially normal for the patient. No fever or chills. No neck stiffness. No vomiting. No changes in balance urination. Patient has multiple recurrent episodes of abdominal pain which she states occur all the time. Patient has a specialist out of [facility]. Patient also sees gastroenterology here in town. Patient states she is currently being worked up for possible gastroparesis. no fever or chills, no changes in vision or hearing, no sore throat or difficulty with speech, no neck pain, no chest pain or shortness of breath, , no nausea or vomiting, no changes in urination or bowel movements, no numbness or tingling, no extremity pain, no skin rashes or lesions. Past medical, surgical, social, and family history reviewed. - Related Data Home Medications Medication Instructions Recorded Confirmed ARIPiprazole IM SYRINGE [Abilify 400 mg IM Q30D 07/28/21 11/16/21 Maintena Syringe] Ibuprofen [Motrin] 800 mg PO Q8H PRN 11/16/21 11/16/21 Omeprazole 20 mg PO DAILY 11/16/21 11/16/21 Prochlorperazine [Compazine] 5 mg PO Q12H PRN 11/16/21 11/16/21 Propranolol HCl 20 mg PO DAILY 11/16/21 11/16/21 QUEtiapine FUMARATE [SEROquel XR] 600 mg PO HS 11/16/21 11/16/21 sitaGLIPtin [Januvia] 50 mg PO DAILY 11/16/21 11/16/21 Previous Rx's Medication Instructions Recorded Sucralfate [Carafate] 1 gm PO BID 10 Days #200 ml 11/27/21 Allergies Allergy/AdvReac Type Severity Reaction Status Date / Time bee pollen Allergy Severe Anaphylaxis Verified 03/04/22 00:08 haloperidol [From Haldol] Allergy Severe QUIT Verified 03/04/22 00:08 BREATHING haloperidol lactate Allergy Severe QUIT Verified 03/04/22 00:08 [From Haldol] BREATHING latex Allergy Severe RASH-THROAT Verified 03/04/22 00:08 CLOSES [place] Allergy Anaphylaxis Verified 03/04/22 00:08 coconut Allergy Anaphylaxis Verified 03/04/22 00:08 morphine Allergy Rash/Hives Verified 03/04/22 00:08 pineapple Allergy Anaphylaxis Verified 03/04/22 00:08 prednisone Allergy THROAT Verified 03/04/22 00:08 SWELLS spider venom Allergy Swelling Verified 03/04/22 00:08 Sulfa (Sulfonamide Allergy THROAT Verified 03/04/22 00:08 Antibiotics) SWELLS venom-wasp Allergy Swelling Verified 03/04/22 00:08 venom-wasp protein Allergy Swelling Verified 03/04/22 00:08 promethazine HCl AdvReac Severe Nausea & Verified 03/04/22 00:08 [From Phenergan] Vomiting tramadol AdvReac Severe Nausea & Verified 03/04/22 00:08 Vomiting amoxicillin AdvReac Nausea & Verified 03/04/22 00:08 Vomiting ANTS AdvReac Mild Anaphylaxis Uncoded 03/04/22 00:08 Review of Systems ROS Statement: Those systems with pertinent positive or pertinent negative responses have been documented in the HPI. ROS Other: All systems not noted in ROS Statement are negative. Past Medical History Past Medical History: Asthma, Diabetes Mellitus, GERD/Reflux Additional Past Medical History / Comment(s): migraines, degenerative disk disease, endometriosis, lupus, pancreatitis, DM2- insulin History of Any Multi-Drug Resistant Organisms: None Reported Past Surgical History: Cholecystectomy, Orthopedic Surgery Additional Past Surgical History / Comment(s): laparoscopc surgery for endometr iosis, cyst removed from left foot, EGD, Past Anesthesia/Blood Transfusion Reactions: Previous Problems w/ Anesthesia Additional Past Anesthesia/Blood Transfusion Reaction / Comment(s): hard to wake up for 48-72 hours after laparoscopic surgery-was in hosp. for 3 days Past Psychological History: Anxiety, Depression, PTSD Smoking Status: Vaper Past Alcohol Use History: None Reported Past Drug Use History: None Reported - Past Family History Mother Family Medical History: No Reported History Additional Family Medical History / Comment(s): hx migraines Father Family Medical History: Coronary Artery Disease (CAD), Hypertension Additional Family Medical History / Comment(s): ddd, alcoholism & drug use General Exam Limitations: no limitations General appearance: alert, in no apparent distress Head exam: Present: atraumatic, normocephalic, normal inspection Eye exam: Present: normal appearance, PERRL, EOMI. Absent: scleral icterus, conjunctival injection, periorbital swelling ENT exam: Present: normal exam, mucous membranes moist Neck exam: Present: normal inspection, full ROM. Absent: tenderness, meningismus, lymphadenopathy Respiratory exam: Present: normal lung sounds bilaterally. Absent: respiratory distress, wheezes, rales, rhonchi, stridor, chest wall tenderness, accessory muscle use Cardiovascular Exam: Present: regular rate, normal rhythm, normal heart sounds. Absent: systolic murmur, diastolic murmur, rubs, gallop, clicks GI/Abdominal exam: Present: soft, tenderness (Very minimal tenderness in the area of the left abdomen. No rebound or percussion tenderness), normal bowel sounds. Absent: distended, guarding, rebound, rigid Extremities exam: Present: normal inspection, full ROM, normal capillary refill. Absent: tenderness, pedal edema, joint swelling, calf tenderness Back exam: Present: normal inspection Neurological exam: Present: alert, oriented X3, CN II-XII intact Psychiatric exam: Present: normal affect, normal mood Skin exam: Present: warm, dry, intact, normal color. Absent: rash Course Vital Signs 03/04/22 03/04/22 00:09 02:20 Temperature 98.5 F Pulse Rate 74 71 Respiratory 16 16 Rate Blood Pressure 130/99 97/55 O2 Sat by Pulse 98 98 Oximetry - Reevaluation(s) Reevaluation #1: 03/04/22 02:07 Patient reevaluated, abdominal pain is resolved. Patient states she still has a headache however, she states it is improved. I did order a dose of ketorolac and acetaminophen. Still awaiting the patient's urinalysis. Reevaluation #2: 03/04/22 03:15 Symptoms are improved here in the emergency department Patient is informed of results and questions answered Patient in no distress Medical Decision Making - Medical Decision Making This is a hemodynamically stable patient who presents with recurrent abdominal pain and recurrent headache. Patient in no significant distress. Vital signs stable, patient afebrile. No significant abdominal tenderness on exam. No meningeal signs. No evidence of systemic illness. Going to order diphenhydramine, metoclopramide, and Zofran as the patient may have some level of gastroparesis. I do not see any utility for laboratory investigations at this time. A plain film x-ray and an Accu-Chek as well. - Lab Data Lab Results 03/04/22 03/04/22 03/04/22 Range/Units 02:07 02:07 02:16 POC Glucose (mg/dL) 154 H (70-110) mg/dL POC Glu Abstract Checker ID Meghan Castle Urine Color Yellow Urine Appearance Cloudy H (Clear) Urine pH 7.0 (5.0-8.0) Ur Specific [place] 1.018 (1.001-1.035) Urine Protein Negative (Negative) Urine Glucose (UA) Negative (Negative) Urine Ketones Negative (Negative) Urine Blood Small H (Negative) Urine Nitrite Negative (Negative) Urine Bilirubin Negative (Negative) Urine Urobilinogen <2.0 (<2.0) mg/dL Ur Leukocyte Esterase Small H (Negative) Urine RBC 37 H (0-5) /hpf Urine WBC 6 H (0-5) /hpf Ur Squamous Epith Cells 1 (0-4) /hpf Amorphous Sediment Rare H (None) /hpf Urine Bacteria Rare H (None) /hpf Urine Mucus Rare H (None) /hpf Urine HCG, Qual Not Detected (Not Detectd) Disposition Clinical Impression: Left sided abdominal pain, Ureterolithiasis, Chronic pancreatitis Narrative: Right-sided ureterolithiasis Disposition: HOME SELF-CARE Condition: Stable Instructions (If sedation given, give patient instructions): Abdominal Pain (ED) Additional Instructions: Clear liquids for 24-48 hours. Advance diet as tolerated thereafter. Follow-up with gastroenterology. Additionally, he make a follow-up appointment with urology. Follow-up with your regular physician as directed. Return to the ER immediately if any symptoms worsen, new symptoms arise, or any other problems develop. Is patient prescribed a controlled substance at d/c from ED?: No Referrals: Isi Carolina MD [Primary Care Provider] - 1-2 days Katarzyna Bocanegra MD [STAFF PHYSICIAN] - As Soon As Possible Sloan Ledesma MD [STAFF PHYSICIAN] - 03/09/22 Time of Disposition: 03:14
[2022-03-04 00:42] VITALS: TEMP 98.5
--- NOTE | 2022-03-04 01:03 | XR ---
EXAMINATION TYPE: XR abdomen acute w cxr DATE OF EXAM: 03/04/2022 COMPARISON: 02/24/2022 HISTORY: Pain TECHNIQUE: Chest x-ray and 3 views of the abdomen FINDINGS: Heart and mediastinum are normal. Lungs are clear. Diaphragm is normal. Bony thorax is inta ct. The pulmonary vascularity is normal. There is no sign of intestinal obstruction or pneumoperitoneum. Fecal pattern is normal. There are cl ips from cholecystectomy. No evidence of a mass. IMPRESSION: Normal chest. Nonacute abdomen.
[2022-03-04] MEDS ORDERED: ACETAMINOPHEN TAB 500 MG TAB PO STA (01:38)
[2022-03-04] MEDS ORDERED: KETOROLAC 15 MG/ML 1 ML VIAL IM STA (01:38)
[2022-03-04 02:18] LABS: Glucose,Whole Blood 154 mg/dL (70-110)
[2022-03-04 02:21] VITALS: PULSE 71
[2022-03-04 02:34] LABS: Amorphous Sediment,Urine Rare /hpf; Appearance,Urine Cloudy (Clear); Bacteria,Urine Rare /hpf; Bilirubin,Urine Negative (Negative); Blood,Urine Small (Negative); Color,Urine Yellow; Glucose,Urine (UA) Negative (Negative); Ketones,Urine Negative (Negative); Leukocyte Esterase,Urine Small (Negative); Mucus,Urine Rare /hpf; Nitrite,Urine Negative (Negative); Protein,Urine Negative (Negative); RBC,Urine 37 /hpf (0-5); Specific Gravity,Urine 1.018 (1.001-1.035); Squamous Epithelial Cell,Urine 1 /hpf (0-4); Urobilinogen,Urine <2.0 mg/dL (<2.0); WBC,Urine 6 /hpf (0-5)
--- NOTE | 2022-03-04 03:00 | CT ---
EXAMINATION TYPE: CT abdomen pelvis wo con DATE OF EXAM: 03/04/2022 COMPARISON: 09/24/2021 HISTORY: Left flank pain CT DLP: 841.1 mGycm Automated exposure control for dose reduction was used. Images obtained from the diaphragm to the floor the pelvis with no contrast. There is minimal atelectasis right posterior lung base. Heart size is normal. No pericardial effusion . No pleural effusion. Liver spleen and stomach appear intact. There are clips from cholecystectomy. The bile ducts are not dilated. There is mild fat stranding and enlargement of the body and head of t he pancreas. There is patchy hypodensity in the body and head of the pancreas. There is no adrenal mass. Kidneys have normal size. No hydronephrosis. There is however evidence of a 4 mm calculus in the proximal right ureter. The appendix is posterior and appears normal. No definit e calculus seen within the kidneys. No retroperitoneal adenopathy. The bladder distends smoothly. No inguinal hernia. No free fluid in the pelvis. Uterus is anteverted. The lumbar vertebrae have normal alignment. No compression fracture. Posterior elements are intact. Bony pelvis is intact. There is no mesenteric edema. No ascites or free air. No sign of a bowel obstruction. IMPRESSION: There is heterogeneous enlargement of the pancreatic head and body which appears increased slightly c ompared to old exam. This could be pancreatitis but pancreatic malignant tumor not excluded. Follow-u p is recommended. There is a small calculus in the proximal right ureter which has migrated from the right kidney mack red to old exam. No evidence of any significant hydronephrosis.
[2022-03-04 03:26] VITALS: BP 107/65; RESP 15
== END 2022-03-04 03:30 | disposition home or self-care (01) ==
LOC: EC 00:05
DX: N20.1 Calculus of ureter (principal); K86.1 Other chronic pancreatitis; F17.290 Nicotine dependence, other tobacco product, uncomplicated; J45.909 Unspecified asthma, uncomplicated; E11.9 Type 2 diabetes mellitus without complications; K21.9 Gastro-esophageal reflux disease without esophagitis; Z91.030 Bee allergy status; Z91.040 Latex allergy status; Z91.018 Allergy to other foods; Z88.2 Allergy status to sulfonamides; Z88.1 Allergy status to other antibiotic agents; Z88.8 Allergy status to other drugs, medicaments and biological substances; Z79.85 Long-term (current) use of injectable non-insulin antidiabetic drugs
CPT/HCPCS: 99284; 96372; 36415; 81001; 81025; 74022; 74176; J1200; J2765; J1885

== ENCOUNTER 2022-03-08 21:44 | Emergency (ER) | payer BC, OTHER ==
[2022-03-08 21:49] VITALS: RESP 18; TEMP 97.9
[2022-03-08] MEDS ORDERED: diphenhydrAMINE 50 MG/ML 1 ML VIAL IVP STA (22:39)
[2022-03-08] MEDS ORDERED: HYDROmorphone 0.5 MG/0.5 ML SYRINGE IVP STA (22:39)
[2022-03-08] MEDS ORDERED: METOCLOPRAMIDE 5 MG/ML 2 ML VIAL IVP STA (22:39)
[2022-03-08] MEDS ORDERED: SODIUM CHLORIDE 0.9% 1,000 ML IV STA (22:39)
--- NOTE | 2022-03-08 23:00 | ED ---
Abdominal Pain HPI - General Chief Complaint: Abdominal Pain Stated Complaint: Abd pain Time Seen by Provider: 03/08/22 21:50 Source: patient Mode of arrival: ambulatory Limitations: no limitations - History of Present Illness Initial Comments: 31-year-old female well known to the emergency room and who presents today with abdominal pain and headache. Patient currently undergoing workup for possible gastroparesis diagnosis. She states that she ate hot dogs and tater tots for dinner and shortly afterwards began having left upper quadrant abdominal pain with nausea and 3 episodes of vomiting. Denies bilious or bloody vomiting. No fevers. No sick contacts with similar symptoms. Patient reports to improved symptoms when she sticks to a bland diet and does believe that the food she ate tonight exacerbated her symptoms. She admits to generalized abdominal pain, black or bloody stools. She does not have any Zofran at home to take for her vo miting. Does admit to taking a Naprosyn. Patient was seen in the emergency room 5 days ago and diagnosed with a kidney stone. Denies hematuria. Does not feel as if she has passed the stone yet. No concern for . No vaginal discharge. No other alleviating, precipitating or modifying factors - Related Data Home Medications Medication Instructions Recorded Confirmed ARIPiprazole IM SYRINGE [Abilify 400 mg IM Q30D 07/28/21 11/16/21 Maintena Syringe] Ibuprofen [Motrin] 800 mg PO Q8H PRN 11/16/21 11/16/21 Omeprazole 20 mg PO DAILY 11/16/21 11/16/21 Prochlorperazine [Compazine] 5 mg PO Q12H PRN 11/16/21 11/16/21 Propranolol HCl 20 mg PO DAILY 11/16/21 11/16/21 QUEtiapine FUMARATE [SEROquel XR] 600 mg PO HS 11/16/21 11/16/21 sitaGLIPtin [Januvia] 50 mg PO DAILY 11/16/21 11/16/21 Previous Rx's Medication Instructions Recorded Sucralfate [Carafate] 1 gm PO BID 10 Days #200 ml 11/27/21 Metoclopramide [Reglan] 10 mg PO TID PRN #30 tab 03/09/22 Allergies Allergy/AdvReac Type Severity Reaction Status Date / Time bee pollen Allergy Severe Anaphylaxis Verified 03/10/22 05:31 haloperidol [From Haldol] Allergy Severe QUIT Verified 03/10/22 05:31 BREATHING haloperidol lactate Allergy Severe QUIT Verified 03/10/22 05:31 [From Haldol] BREATHING latex Allergy Severe RASH-THROAT Verified 03/10/22 05:31 CLOSES [place] Allergy Anaphylaxis Verified 03/10/22 05:31 coconut Allergy Anaphylaxis Verified 03/10/22 05:31 morphine Allergy Rash/Hives Verified 03/10/22 05:31 pineapple Allergy Anaphylaxis Verified 03/10/22 05:31 prednisone Allergy THROAT Verified 03/10/22 05:31 SWELLS spider venom Allergy Swelling Verified 03/10/22 05:31 Sulfa (Sulfonamide Allergy THROAT Verified 03/10/22 05:31 Antibiotics) SWELLS venom-wasp Allergy Swelling Verified 03/10/22 05:31 venom-wasp protein Allergy Swelling Verified 03/10/22 05:31 promethazine HCl AdvReac Severe Nausea & Verified 03/10/22 05:31 [From Phenergan] Vomiting tramadol AdvReac Severe Nausea & Verified 03/10/22 05:31 Vomiting amoxicillin AdvReac Nausea & Verified 03/10/22 05:31 Vomiting ANTS AdvReac Mild Anaphylaxis Uncoded 03/10/22 05:31 Review of Systems ROS Statement: Those systems with pertinent positive or pertinent negative responses have been documented in the HPI. ROS Other: All systems not noted in ROS Statement are negative. Past Medical History Past Medical History: Asthma, Diabetes Mellitus, GERD/Reflux Additional Past Medical History / Comment(s): migraines, degenerative disk disease, endometriosis, lupus, pancreatitis, DM2- insulin History of Any Multi-Drug Resistant Organisms: None Reported Past Surgical History: Cholecystectomy, Orthopedic Surgery Additional Past Surgical History / Comment(s): laparoscopc surgery for endometriosis, cyst removed from left foot, EGD, Past Anesthesia/Blood Transfusion Reactions: Previous Problems w/ Anesthesia Additional Past Anesthesia/Blood Transfusion Reaction / Comment(s): hard to wake up for 48-72 hours after laparoscopic surgery-was in hosp. for 3 days Past Psychological History: Anxiety, Depression, PTSD Smoking Status: Vaper Past Alcohol Use History: None Reported Past Drug Use History: None Reported - Past Family History Mother Family Medical History: No Reported History Additional Family Medical History / Comment(s): hx migraines Father Family Medical History: Coronary Artery Disease (CAD), Hypertension Additional Family Medical History / Comment(s): ddd, alcoholism & drug use General Exam Limitations: no limitations General appearance: alert, in no apparent distress Head exam: Present: atraumatic, normocephalic, normal inspection Eye exam: Present: normal appearance, PERRL, EOMI. Absent: scleral icterus, conjunctival injection, periorbital swelling ENT exam: Present: normal exam, mucous membranes moist Neck exam: Present: normal inspection. Absent: tenderness, meningismus, lymphadenopathy Respiratory exam: Present: normal lung sounds bilaterally. Absent: respiratory distress, wheezes, rales, rhonchi, stridor Cardiovascular Exam: Present: normal rhythm, tachycardia, normal heart sounds. Absent: systolic murmur, diastolic murmur, rubs, gallop, clicks GI/Abdominal exam: Present: soft, normal bowel sounds. Absent: distended, tenderness, guarding, rebound, rigid Extremities exam: Present: normal inspection, full ROM, normal capillary refill. Absent: tenderness, pedal edema, joint swelling, calf tenderness Back exam: Present: normal inspection Neurological exam: Present: alert, oriented X3, CN II-XII intact Psychiatric exam: Present: normal affect, normal mood Skin exam: Present: warm, dry, intact, normal color. Absent: rash Course Vital Signs 03/08/22 03/08/22 03/09/22 21:47 22:22 01:26 Temperature 97.9 F Pulse Rate 125 H 121 H 116 H Respiratory 18 Rate Blood Pressure 149/94 O2 Sat by Pulse 97 Oximetry 03/09/22 01:36 Temperature Pulse Rate 113 H Respiratory 18 Rate Blood Pressure 107/60 O2 Sat by Pulse 96 Oximetry Medical Decision Making - Medical Decision Making On arrival patient is placed into room 1. Thorough history and physical exam was performed. IV access is established. Laboratory studies are conducted. Laboratory studies are reviewed by myself. They are remarkable for a glucose of 269. Anion gap is 9. CO2 is 20. Patient was given 2 doses of Dilaudid and a dose of Zofran. Patient reevaluated and reports to improvement in her symptoms. At this time patient is stable for discharge home. We will refill the patient's Reglan. She is instructed to follow up with her specialist to return for any new or worsening symptoms. Patient agreeable to plan she was discharged home in stable condition - Lab Data Result diagrams: 03/08/22 23:49 03/08/22 23:49 Lab Results 03/08/22 03/08/22 03/08/22 Range/Units 23:49 23:49 23:49 WBC 6.6 (3.8-10.6) k/uL RBC 3.94 (3.80-5.40) m/uL Hgb 11.6 (11.4-16.0) gm/dL Hct 34.9 (34.0-46.0) % MCV 88.6 (80.0-100.0) fL MCH 29.5 (25.0-35.0) pg MCHC 33.3 (31.0-37.0) g/dL RDW 14.2 (11.5-15.5) % Plt Count 294 (150-450) k/uL MPV 8.7 Neutrophils % 87 % Lymphocytes % 11 % Monocytes % 2 % Eosinophils % 0 % Basophils % 0 % Neutrophils # 5.7 (1.3-7.7) k/uL Lymphocytes # 0.7 L (1.0-4.8) k/uL Monocytes # 0.1 (0-1.0) k/uL Eosinophils # 0.0 (0-0.7) k/uL Basophils # 0.0 (0-0.2) k/uL Hypochromasia Slight Sodium 135 L (137-145) mmol/L Potassium 4.7 (3.5-5.1) mmol/L Chloride 106 (98-107) mmol/L Carbon Dioxide 20 L (22-30) mmol/L Anion Gap 9 mmol/L BUN 9 (7-17) mg/dL Creatinine 0.61 (0.52-1.04) mg/dL Est GFR (CKD-EPI)AfAm >90 (>60 ml/min/1.73 sqM) Est GFR (CKD-EPI)NonAf >90 (>60 ml/min/1.73 sqM) Glucose 269 H (74-99) mg/dL Calcium 10.3 H (8.4-10.2) mg/dL Total Bilirubin 0.4 (0.2-1.3) mg/dL AST 26 (14-36) U/L ALT 35 H (4-34) U/L Alkaline Phosphatase 74 (38-126) U/L Total Protein 6.9 (6.3-8.2) g/dL Albumin 4.0 (3.5-5.0) g/dL Lipase 98 (23-300) U/L Urine Color Light Yellow Urine Appearance Clear (Clear) Urine pH 6.5 (5.0-8.0) Ur Specific [place] 1.015 (1.001-1.035) Urine Protein Negative (Negative) Urine Glucose (UA) 4+ H (Negative) Urine Ketones Trace H (Negative) Urine Blood Negative (Negative) Urine Nitrite Negative (Negative) Urine Bilirubin Negative (Negative) Urine Urobilinogen <2.0 (<2.0) mg/dL Ur Leukocyte Esterase Trace H (Negative) Urine RBC 2 (0-5) /hpf Urine WBC 1 (0-5) /hpf Ur Squamous Epith Cells 1 (0-4) /hpf Urine Bacteria Occasional H (None) /hpf Urine Mucus Rare H (None) /hpf Disposition Clinical Impression: Abdominal pain, Nausea & vomiting, Tachycardia Disposition: HOME SELF-CARE Condition: Stable Instructions (If sedation given, give patient instructions): Abdominal Pain (ED) Prescriptions: Metoclopramide [Reglan] 10 mg PO TID PRN #30 tab PRN Reason: Vomiting Is patient prescribed a controlled substance at d/c from ED?: No Referrals: Isi Carolina MD [Primary Care Provider] - 1-2 days Time of Disposition: 01:26
[2022-03-09 00:13] LABS: Basophils % (A) 0 %; Eosinophils % (A) 0 %; HCT 34.9 % (34.0-46.0); HGB 11.6 gm/dL (11.4-16.0); Hypochromasia Slight; Lymphocytes # (A) 0.7 k/uL (1.0-4.8); Lymphocytes % (A) 11 %; MCH 29.5 pg (25.0-35.0); MCHC 33.3 g/dL (31.0-37.0); MCV 88.6 fL (80.0-100.0); Mean Platelet Volume 8.7; Monocytes # (A) 0.1 k/uL (0-1.0); Monocytes % (A) 2 %; Neutrophils # (A) 5.7 k/uL (1.3-7.7); Neutrophils % (A) 87 %; Platelet Count 294 k/uL (150-450); RBC 3.94 m/uL (3.80-5.40); RDW 14.2 % (11.5-15.5); WBC 6.6 k/uL (3.8-10.6)
[2022-03-09 00:21] LABS: Appearance,Urine Clear (Clear); Bacteria,Urine Occasional /hpf; Bilirubin,Urine Negative (Negative); Blood,Urine Negative (Negative); Color,Urine Light Yellow; Glucose,Urine (UA) 4+ (Negative); Ketones,Urine Trace (Negative); Leukocyte Esterase,Urine Trace (Negative); Mucus,Urine Rare /hpf; Nitrite,Urine Negative (Negative); PH, Urine 6.5 (5.0-8.0); Protein,Urine Negative (Negative); RBC,Urine 2 /hpf (0-5); Specific Gravity,Urine 1.015 (1.001-1.035); Squamous Epithelial Cell,Urine 1 /hpf (0-4); Urobilinogen,Urine <2.0 mg/dL (<2.0); WBC,Urine 1 /hpf (0-5)
[2022-03-09 00:29] LABS: AST 26 U/L (14-36); African American GFR (CKD) >90 (>60 ml/min/1.73 sqM); Alkaline Phosphatase 74 U/L (38-126); Anion Gap 9 mmol/L; Blood Urea Nitrogen 9 mg/dL (7-17); Calcium 10.3 mg/dL (8.4-10.2); Carbon Dioxide 20 mmol/L (22-30); Chloride 106 mmol/L (98-107); Glucose 269 mg/dL (74-99); Lipase 98 U/L (23-300); Non-African American GFR(CKD) >90 (>60 ml/min/1.73 sqM); Potassium 4.7 mmol/L (3.5-5.1); Sodium 135 mmol/L (137-145); Total Bilirubin 0.4 mg/dL (0.2-1.3); Total Protein 6.9 g/dL (6.3-8.2)
[2022-03-09] MEDS ORDERED: HYDROmorphone 0.5 MG/0.5 ML SYRINGE IVP STA (00:49)
[2022-03-09 00:55] LABS: ALT 35 U/L (4-34)
[2022-03-09 01:36] VITALS: BP 107/60; PULSE 113
== END 2022-03-09 01:36 | disposition home or self-care (01) ==
LOC: EC 21:44
DX: R10.9 Unspecified abdominal pain (principal); R11.2 Nausea with vomiting, unspecified; R00.0 Tachycardia, unspecified; K21.9 Gastro-esophageal reflux disease without esophagitis; J45.909 Unspecified asthma, uncomplicated; E11.9 Type 2 diabetes mellitus without complications; F41.9 Anxiety disorder, unspecified; F32.A Depression, unspecified; F17.290 Nicotine dependence, other tobacco product, uncomplicated; Z91.030 Bee allergy status; Z88.8 Allergy status to other drugs, medicaments and biological substances; Z91.040 Latex allergy status; Z91.018 Allergy to other foods; Z88.2 Allergy status to sulfonamides; Z91.038 Other insect allergy status; Z88.5 Allergy status to narcotic agent; Z88.0 Allergy status to penicillin; Z79.899 Other long term (current) drug therapy
CPT/HCPCS: 99284; 96374; 96375 ×2; 96361 ×2; 96376; 36415; 80053; 83690; 85025; 81001; J1200; J2765; J1170 ×2

== ENCOUNTER 2022-03-10 05:25 | Emergency (ER) | payer BC, OTHER ==
[2022-03-10] MEDS ORDERED: KETOROLAC 15 MG/ML 1 ML VIAL IM STA (05:57)
[2022-03-10 06:51] VITALS: TEMP 98.2
--- NOTE | 2022-03-10 06:59 | XR ---
EXAMINATION TYPE: XR KUB DATE OF EXAM: 03/10/2022 6:14 AM CLINICAL HISTORY: Renal stone. Left-sided pain. TECHNIQUE: Two Upright KUB images of the abdomen are obtained. COMPARISON: Recent CT 6 days ago. FINDINGS: Scattered gas is seen in non-distended small bowel loops. Gas and fecal material is seen in non-distended colon. Moderate fecal prominence right colon. Cholecystectomy clips are redemonstrated . There is no visceromegaly, pneumoperitoneum, or abnormal calcification appreciated. The lung bases are clear and the osseous structures are intact. IMPRESSION: Overall nonobstructive bowel gas pattern. Moderate proximal colonic fecal stasis. No nephrolithiasis.
[2022-03-10 07:08] LABS: Amorphous Sediment,Urine Rare /hpf; Appearance,Urine Cloudy (Clear); Bacteria,Urine Rare /hpf; Bilirubin,Urine Negative (Negative); Blood,Urine Negative (Negative); Calcium Oxalate Crystals,Urine Moderate /hpf; Color,Urine Yellow; Glucose,Urine (UA) 3+ (Negative); Ketones,Urine Negative (Negative); Leukocyte Esterase,Urine Small (Negative); Mucus,Urine Rare /hpf; Nitrite,Urine Negative (Negative); Protein,Urine Negative (Negative); RBC,Urine 1 /hpf (0-5); Squamous Epithelial Cell,Urine 1 /hpf (0-4); Urobilinogen,Urine <2.0 mg/dL (<2.0); WBC,Urine 4 /hpf (0-5)
[2022-03-10 07:33] VITALS: BP 142/91; PULSE 92; RESP 18
--- NOTE | 2022-03-10 07:40 | ED ---
General Adult HPI - General Chief complaint: Recheck/Abnormal Lab/Rx Stated complaint: Abdominal Pain Time Seen by Provider: 03/10/22 05:57 Source: patient Mode of arrival: ambulatory - History of Present Illness Initial comments: -year-old female well-known to the emergency room presents for abdominal pain. Reports that she has left flank pain which started today. She denies any changes in her bowel or bladder habits. Patient was recently diagnosed with a kidney stone that she does not feel that she has passed yet. She admits to nausea and vomiting. Patient well-known to the emergency department and presents today for her 9th visit in the pat month. - Related Data Home Medications Medication Instructions Recorded Confirmed ARIPiprazole IM SYRINGE [Abilify 400 mg IM Q30D 07/28/21 11/16/21 Maintena Syringe] Ibuprofen [Motrin] 800 mg PO Q8H PRN 11/16/21 11/16/21 Omeprazole 20 mg PO DAILY 11/16/21 11/16/21 Prochlorperazine [Compazine] 5 mg PO Q12H PRN 11/16/21 11/16/21 Propranolol HCl 20 mg PO DAILY 11/16/21 11/16/21 QUEtiapine FUMARATE [SEROquel XR] 600 mg PO HS 11/16/21 11/16/21 sitaGLIPtin [Januvia] 50 mg PO DAILY 11/16/21 11/16/21 Previous Rx's Medication Instructions Recorded Sucralfate [Carafate] 1 gm PO BID 10 Days #200 ml 11/27/21 Metoclopramide [Reglan] 10 mg PO TID PRN #30 tab 03/09/22 Allergies Allergy/AdvReac Type Severity Reaction Status Date / Time bee pollen Allergy Severe Anaphylaxis Verified 03/10/22 05:31 haloperidol [From Haldol] Allergy Severe QUIT Verified 03/10/22 05:31 BREATHING haloperidol lactate Allergy Severe QUIT Verified 03/10/22 05:31 [From Haldol] BREATHING latex Allergy Severe RASH-THROAT Verified 03/10/22 05:31 CLOSES [place] Allergy Anaphylaxis Verified 03/10/22 05:31 coconut Allergy Anaphylaxis Verified 03/10/22 05:31 morphine Allergy Rash/Hives Verified 03/10/22 05:31 pineapple Allergy Anaphylaxis Verified 03/10/22 05:31 prednisone Allergy THROAT Verified 03/10/22 05:31 SWELLS spider venom Allergy Swelling Verified 03/10/22 05:31 Sulfa (Sulfonamide Allergy THROAT Verified 03/10/22 05:31 Antibiotics) SWELLS venom-wasp Allergy Swelling Verified 03/10/22 05:31 venom-wasp protein Allergy Swelling Verified 03/10/22 05:31 promethazine HCl AdvReac Severe Nausea & Verified 03/10/22 05:31 [From Phenergan] Vomiting tramadol AdvReac Severe Nausea & Verified 03/10/22 05:31 Vomiting amoxicillin AdvReac Nausea & Verified 03/10/22 05:31 Vomiting ANTS AdvReac Mild Anaphylaxis Uncoded 03/10/22 05:31 Review of Systems ROS Statement: Those systems with pertinent positive or pertinent negative responses have been documented in the HPI. ROS Other: All systems not noted in ROS Statement are negative. Past Medical History Past Medical History: Asthma, Diabetes Mellitus, GERD/Reflux Additional Past Medical History / Comment(s): migraines, degenerative disk disease, endometriosis, lupus, pancreatitis, DM2- insulin History of Any Multi-Drug Resistant Organisms: None Reported Past Surgical History: Cholecystectomy, Orthopedic Surgery Additional Past Surgical History / Comment(s): laparoscopc surgery for endometriosis, cyst removed from left foot, EGD, Past Anesthesia/Blood Transfusion Reactions: Previous Problems w/ Anesthesia Additional Past Anesthesia/Blood Transfusion Reaction / Comment(s): hard to wake up for 48-72 hours after laparoscopic surgery-was in hosp. for 3 days Past Psychological History: Anxiety, Depression, PTSD Smoking Status: Vaper Past Alcohol Use History: None Reported Past Drug Use History: None Reported - Past Family History Mother Family Medical History: No Reported History Additional Family Medical History / Comment(s): hx migraines Father Family Medical History: Coronary Artery Disease (CAD), Hypertension Additional Family Medical History / Comment(s): ddd, alcoholism & drug use General Exam General appearance: alert, in no apparent distress Head exam: Present: atraumatic, normocephalic, normal inspection Eye exam: Present: normal appearance, PERRL, EOMI. Absent: scleral icterus, conjunctival injection, periorbital swelling ENT exam: Present: normal exam, mucous membranes moist Neck exam: Present: normal inspection. Absent: tenderness, meningismus, lymphadenopathy Respiratory exam: Present: normal lung sounds bilaterally. Absent: respiratory distress, wheezes, rales, rhonchi, stridor Cardiovascular Exam: Present: regular rate, normal rhythm, normal heart sounds. Absent: systolic murmur, diastolic murmur, rubs, gallop, clicks GI/Abdominal exam: Present: soft, normal bowel sounds. Absent: distended, tenderness, guarding, rebound, rigid Extremities exam: Present: normal inspection, full ROM, normal capillary refill. Absent: tenderness, pedal edema, joint swelling, calf tenderness Back exam: Present: normal inspection Neurological exam: Present: alert, oriented X3, CN II-XII intact Psychiatric exam: Present: normal affect, normal mood Skin exam: Present: warm, dry, intact, normal color. Absent: rash Course Vital Signs 03/10/22 03/10/22 03/10/22 05:29 06:50 07:30 Temperature 98.6 F 98.2 F Pulse Rate 99 87 92 Respiratory 18 16 18 Rate Blood Pressure 130/72 142/91 O2 Sat by Pulse 96 97 98 Oximetry Medical Decision Making - Medical Decision Making Vital patient was placed into room 14. A thorough history and physical exam was performed. Vital signs within normal limits. Patient was just seen yesterday in the emergency room for same complaint with normal labs. She was given a dose of Toradol. Urinalysis was performed. KUB is obtained. Results are discussed with the patient. She is requesting narcotics. Informed patient that we will not continue to treat her symptoms of chronic abdominal pain in the emergency department with opiates. She does follow up with her primary care doctor for better pain management. Patient understood. Discharge home in stable condition - Lab Data Lab Results 03/10/22 Range/Units 06:38 Urine Color Yellow Urine Appearance Cloudy H (Clear) Urine pH 6.0 (5.0-8.0) Ur Specific [place] 1.020 (1.001-1.035) Urine Protein Negative (Negative) Urine Glucose (UA) 3+ H (Negative) Urine Ketones Negative (Negative) Urine Blood Negative (Negative) Urine Nitrite Negative (Negative) Urine Bilirubin Negative (Negative) Urine Urobilinogen <2.0 (<2.0) mg/dL Ur Leukocyte Esterase Small H (Negative) Urine RBC 1 (0-5) /hpf Urine WBC 4 (0-5) /hpf Ur Squamous Epith Cells 1 (0-4) /hpf Calcium Oxalate Crystal Moderate H (None) /hpf Amorphous Sediment Rare H (None) /hpf Urine Bacteria Rare H (None) /hpf Urine Mucus Rare H (None) /hpf Disposition Clinical Impression: Abdominal pain, Drug-seeking behavior Disposition: HOME SELF-CARE Condition: Stable Instructions (If sedation given, give patient instructions): Abdominal Pain (ED) Additional Instructions: Please follow-up with your doctor for further referrals. I recommend you see pain management. Is patient prescribed a controlled substance at d/c from ED?: No Referrals: Isi Carolina MD [Primary Care Provider] - 1-2 days Time of Disposition: 07:40
== END 2022-03-10 07:56 | disposition home or self-care (01) ==
LOC: EC 05:25
DX: R10.9 Unspecified abdominal pain (principal); Z76.5 Malingerer [conscious simulation]; J45.909 Unspecified asthma, uncomplicated; E11.9 Type 2 diabetes mellitus without complications; K21.9 Gastro-esophageal reflux disease without esophagitis; F32.A Depression, unspecified; F41.9 Anxiety disorder, unspecified; F17.290 Nicotine dependence, other tobacco product, uncomplicated; Z79.84 Long term (current) use of oral hypoglycemic drugs; Z79.899 Other long term (current) drug therapy; Z91.030 Bee allergy status; Z88.0 Allergy status to penicillin; Z88.2 Allergy status to sulfonamides; Z88.5 Allergy status to narcotic agent; Z88.8 Allergy status to other drugs, medicaments and biological substances; Z91.040 Latex allergy status
CPT/HCPCS: 81001; 74018; 99284; 96372; J1885

== ENCOUNTER 2022-03-17 21:21 | Emergency (ER) | payer BC, OTHER ==
--- NOTE | 2022-03-17 21:38 | ED ---
Abdominal Pain HPI - General Chief Complaint: Abdominal Pain Stated Complaint: Abd pain Time Seen by Provider: 03/17/22 21:36 Source: patient, RN notes reviewed, old records reviewed Mode of arrival: ambulatory Limitations: no limitations - History of Present Illness Initial Comments: This is a 31-year-old female DF for evaluation of abdominal pain headache migraine pain. Symptoms are persistent chronic in nature. Unchanged, this is his normal her normal pain and abnormal pains baseline. Afebrile without other complaint MD Complaint: abdominal pain -: year(s) Location: epigastric, suprapubic Radiation: epigastric, suprapubic Migration to: no migration Severity: severe Severity scale (1-10): 8 Quality: cramping, aching Consistency: intermittent Improves With: nothing Worsens With: nothing Associated Symptoms: nausea, other (Headache) Treatments Prior to Arrival: other (0) - Related Data Home Medications Medication Instructions Recorded Confirmed ARIPiprazole IM SYRINGE [Abilify 400 mg IM Q30D 07/28/21 11/16/21 Maintena Syringe] Ibuprofen [Motrin] 800 mg PO Q8H PRN 11/16/21 11/16/21 Omeprazole 20 mg PO DAILY 11/16/21 11/16/21 Prochlorperazine [Compazine] 5 mg PO Q12H PRN 11/16/21 11/16/21 Propranolol HCl 20 mg PO DAILY 11/16/21 11/16/21 QUEtiapine FUMARATE [SEROquel XR] 600 mg PO HS 11/16/21 11/16/21 sitaGLIPtin [Januvia] 50 mg PO DAILY 11/16/21 11/16/21 Previous Rx's Medication Instructions Recorded Sucralfate [Carafate] 1 gm PO BID 10 Days #200 ml 11/27/21 Metoclopramide [Reglan] 10 mg PO TID PRN #30 tab 03/09/22 Allergies Allergy/AdvReac Type Severity Reaction Status Date / Time bee pollen Allergy Severe Anaphylaxis Verified 03/10/22 05:31 haloperidol [From Haldol] Allergy Severe QUIT Verified 03/10/22 05:31 BREATHING haloperidol lactate Allergy Severe QUIT Verified 03/10/22 05:31 [From Haldol] BREATHING latex Allergy Severe RASH-THROAT Verified 03/10/22 05:31 CLOSES [place] Allergy Anaphylaxis Verified 03/10/22 05:31 coconut Allergy Anaphylaxis Verified 03/10/22 05:31 morphine Allergy Rash/Hives Verified 03/10/22 05:31 pineapple Allergy Anaphylaxis Verified 03/10/22 05:31 prednisone Allergy THROAT Verified 03/10/22 05:31 SWELLS spider venom Allergy Swelling Verified 03/10/22 05:31 Sulfa (Sulfonamide Allergy THROAT Verified 03/10/22 05:31 Antibiotics) SWELLS venom-wasp Allergy Swelling Verified 03/10/22 05:31 venom-wasp protein Allergy Swelling Verified 03/10/22 05:31 promethazine HCl AdvReac Severe Nausea & Verified 03/10/22 05:31 [From Phenergan] Vomiting tramadol AdvReac Severe Nausea & Verified 03/10/22 05:31 Vomiting amoxicillin AdvReac Nausea & Verified 03/10/22 05:31 Vomiting ANTS AdvReac Mild Anaphylaxis Uncoded 03/10/22 05:31 Review of Systems ROS Statement: Those systems with pertinent positive or pertinent negative responses have been documented in the HPI. ROS Other: All systems not noted in ROS Statement are negative. Past Medical History Past Medical History: Asthma, Diabetes Mellitus, GERD/Reflux Additional Past Medical History / Comment(s): migraines, degenerative disk disease, endometriosis, lupus, pancreatitis, DM2- insulin History of Any Multi-Drug Resistant Organisms: None Reported Past Surgical History: Cholecystectomy, Orthopedic Surgery Additional Past Surgical History / Comment(s): laparoscopc surgery for endometriosis, cyst removed from left foot, EGD, Past Anesthesia/Blood Transfusion Reactions: Previous Problems w/ Anesthesia Additional Past Anesthesia/Blood Transfusion Reaction / Comment(s): hard to wake up for 48-72 hours after laparoscopic surgery-was in hosp. for 3 days Past Psychological History: Anxiety, Depression, PTSD Smoking Status: Vaper Past Alcohol Use History: None Reported Past Drug Use History: None Reported - Past Family History Mother Family Medical History: No Reported History Additional Family Medical History / Comment(s): hx migraines Father Family Medical History: Coronary Artery Disease (CAD), Hypertension Additional Family Medical History / Comment(s): ddd, alcoholism & drug use General Exam Limitations: no limitations General appearance: alert, in no apparent distress Head exam: Present: atraumatic, normocephalic, normal inspection Eye exam: Present: normal appearance, PERRL, EOMI. Absent: scleral icterus, conjunctival injection, periorbital swelling ENT exam: Present: normal exam, mucous membranes moist Neck exam: Present: normal inspection. Absent: tenderness, meningismus, lymphadenopathy Respiratory exam: Present: normal lung sounds bilaterally. Absent: respiratory distress, wheezes, rales, rhonchi, stridor Cardiovascular Exam: Present: regular rate, normal rhythm, normal heart sounds. Absent: systolic murmur, diastolic murmur, rubs, gallop, clicks GI/Abdominal exam: Present: soft, normal bowel sounds. Absent: distended, tenderness, guarding, rebound, rigid Extremities exam: Present: normal inspection, full ROM, normal capillary refill. Absent: tenderness, pedal edema, joint swelling, calf tenderness Back exam: Present: normal inspection Neurological exam: Present: alert, oriented X3, CN II-XII intact Psychiatric exam: Present: normal affect, normal mood Skin exam: Present: warm, dry, intact, normal color. Absent: rash Course Vital Signs 03/17/22 21:23 Temperature 97.6 F Pulse Rate 120 H Respiratory 20 Rate Blood Pressure 123/91 O2 Sat by Pulse 98 Oximetry - Reevaluation(s) Reevaluation #1: 03/17/22 23:03 Medical record is reviewed Reevaluation #2: 03/17/22 23:03 Patient informed results and questions answered Reevaluation #3: 03/17/22 23:03 Patient symptoms are improved Medical Decision Making - Medical Decision Making 31 female to the emergency department with her chronic abdominal pain chronic migraines. Patient symptoms are resolved and she can be discharged Disposition Clinical Impression: Nausea & vomiting, Migraine headache, Abdominal pain Disposition: HOME SELF-CARE Condition: Good Instructions (If sedation given, give patient instructions): Abdominal Pain (ED) Is patient prescribed a controlled substance at d/c from ED?: No Referrals: Isi Carolina MD [Primary Care Provider] - 1-2 days Time of Disposition: 23:05
[2022-03-17] MEDS ORDERED: diphenhydrAMINE 50 MG CAP PO STA (21:39)
[2022-03-17] MEDS ORDERED: PROCHLORPERAZINE 10 MG TAB PO STA (21:39)
[2022-03-17] MEDS ORDERED: KETOROLAC 15 MG/ML 1 ML VIAL IM STA (21:39)
[2022-03-17] MEDS ORDERED: Acetaminophen-Codeine 300-30mg TAB PO STA (21:39)
[2022-03-17] MEDS ORDERED: HYDROmorphone 1 MG/ML 1 ML SYRINGE IM STA (22:58)
[2022-03-17 23:10] VITALS: BP 127/88; PULSE 68; RESP 16; TEMP 98.1
== END 2022-03-17 23:14 | disposition home or self-care (01) ==
LOC: EC 21:21
DX: G43.909 Migraine, unspecified, not intractable, without status migrainosus (principal); R10.9 Unspecified abdominal pain; J45.909 Unspecified asthma, uncomplicated; E11.9 Type 2 diabetes mellitus without complications; K21.9 Gastro-esophageal reflux disease without esophagitis; F41.9 Anxiety disorder, unspecified; F32.A Depression, unspecified; F17.290 Nicotine dependence, other tobacco product, uncomplicated; Z79.83 Long term (current) use of bisphosphonates; Z88.0 Allergy status to penicillin; Z88.5 Allergy status to narcotic agent; Z88.2 Allergy status to sulfonamides; Z88.8 Allergy status to other drugs, medicaments and biological substances; Z91.030 Bee allergy status; Z91.040 Latex allergy status; Z91.038 Other insect allergy status
CPT/HCPCS: 99283; 96372 ×2; J1170; J1885

== ENCOUNTER 2022-03-20 21:08 | Emergency (ER) | payer BC, OTHER ==
[2022-03-20] MEDS ORDERED: ONDANSETRON 4 MG/2 ML VIAL IM STA (21:30)
[2022-03-20] MEDS ORDERED: KETOROLAC 15 MG/ML 1 ML VIAL IM STA ×2 (21:30→22:39)
[2022-03-20 22:00] VITALS: RESP 16; TEMP 98.4
[2022-03-20 22:23] LABS: Basophils % (A) 0 %; Eosinophils # (A) 0.1 k/uL (0-0.7); Eosinophils % (A) 1 %; HCT 34.6 % (34.0-46.0); HGB 12.1 gm/dL (11.4-16.0); Lymphocytes # (A) 1.3 k/uL (1.0-4.8); Lymphocytes % (A) 10 %; MCH 30.1 pg (25.0-35.0); Mean Platelet Volume 8.5; Monocytes # (A) 0.4 k/uL (0-1.0); Monocytes % (A) 3 %; Neutrophils # (A) 11.6 k/uL (1.3-7.7); Neutrophils % (A) 86 %; Platelet Count 348 k/uL (150-450); RBC 4.02 m/uL (3.80-5.40); WBC 13.5 k/uL (3.8-10.6)
[2022-03-20 22:33] LABS: ALT 23 U/L (4-34); AST 21 U/L (14-36); African American GFR (CKD) >90 (>60 ml/min/1.73 sqM); Alkaline Phosphatase 87 U/L (38-126); Amylase 67 U/L (30-110); Anion Gap 15 mmol/L; Blood Urea Nitrogen 15 mg/dL (7-17); Calcium 10.7 mg/dL (8.4-10.2); Carbon Dioxide 18 mmol/L (22-30); Chloride 103 mmol/L (98-107); Glucose 297 mg/dL (74-99); Lipase 116 U/L (23-300); Non-African American GFR(CKD) >90 (>60 ml/min/1.73 sqM); Potassium 4.3 mmol/L (3.5-5.1); Sodium 136 mmol/L (137-145); Total Bilirubin 0.4 mg/dL (0.2-1.3); Total Protein 7.1 g/dL (6.3-8.2)
--- NOTE | 2022-03-20 22:37 | ED ---
Abdominal Pain HPI - General Chief Complaint: Abdominal Pain Stated Complaint: abd pain Time Seen by Provider: 03/20/22 21:28 Source: patient, RN notes reviewed Mode of arrival: ambulatory Limitations: no limitations - History of Present Illness Initial Comments: This is a 31-year-old female who presents to the emergency department for abdominal pain. The patient is a very well known to our emergency department for abdominal pain and headaches. The abdominal pain is primarily in the left upper quadrant and has been present for the last 3 days. She is nauseous but has no vomiting. 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 Patient states that she is aware of this and is requesting Toradol and Benadryl. She does still have an appointment with [facility] on 04/07 to see their pancreatitis specialist. She also has an MRI of the abdomen ordered by her primary care provider on 04/01 so the results can be reviewed by the [facility] prior. Denies any fevers, chills, sore throat, cough, dyspnea, chest pain, palpitations, vomiting, diarrhea, or back pain. MD Complaint: abdominal pain Onset/Timin Location: LUQ Associated Symptoms: nausea - Related Data Home Medications Medication Instructions Recorded Confirmed ARIPiprazole IM SYRINGE [Abilify 400 mg IM Q30D 07/28/21 11/16/21 Maintena Syringe] Ibuprofen [Motrin] 800 mg PO Q8H PRN 11/16/21 11/16/21 Omeprazole 20 mg PO DAILY 11/16/21 11/16/21 Prochlorperazine [Compazine] 5 mg PO Q12H PRN 11/16/21 11/16/21 Propranolol HCl 20 mg PO DAILY 11/16/21 11/16/21 QUEtiapine FUMARATE [SEROquel XR] 600 mg PO HS 11/16/21 11/16/21 sitaGLIPtin [Januvia] 50 mg PO DAILY 11/16/21 11/16/21 Previous Rx's Medication Instructions Recorded Sucralfate [Carafate] 1 gm PO BID 10 Days #200 ml 11/27/21 Metoclopramide [Reglan] 10 mg PO TID PRN #30 tab 03/09/22 Allergies Allergy/AdvReac Type Severity Reaction Status Date / Time bee pollen Allergy Severe Anaphylaxis Verified 03/10/22 05:31 haloperidol [From Haldol] Allergy Severe QUIT Verified 03/10/22 05:31 BREATHING haloperidol lactate Allergy Severe QUIT Verified 03/10/22 05:31 [From Haldol] BREATHING latex Allergy Severe RASH-THROAT Verified 03/10/22 05:31 CLOSES murrieta Allergy Anaphylaxis Verified 03/10/22 05:31 coconut Allergy Anaphylaxis Verified 03/10/22 05:31 morphine Allergy Rash/Hives Verified 03/10/22 05:31 pineapple Allergy Anaphylaxis Verified 03/10/22 05:31 prednisone Allergy THROAT Verified 03/10/22 05:31 SWELLS spider venom Allergy Swelling Verified 03/10/22 05:31 Sulfa (Sulfonamide Allergy THROAT Verified 03/10/22 05:31 Antibiotics) SWELLS venom-wasp Allergy Swelling Verified 03/10/22 05:31 venom-wasp protein Allergy Swelling Verified 03/10/22 05:31 promethazine HCl AdvReac Severe Nausea & Verified 03/10/22 05:31 [From Phenergan] Vomiting tramadol AdvReac Severe Nausea & Verified 03/10/22 05:31 Vomiting amoxicillin AdvReac Nausea & Verified 03/10/22 05:31 Vomiting ANTS AdvReac Mild Anaphylaxis Uncoded 03/10/22 05:31 Review of Systems ROS Statement: Those systems with pertinent positive or pertinent negative responses have been documented in the HPI. ROS Other: All systems not noted in ROS Statement are negative. Past Medical History Past Medical History: Asthma, Diabetes Mellitus, GERD/Reflux Additional Past Medical History / Comment(s): migraines, degenerative disk disease, endometriosis, lupus, pancreatitis, DM2- insulin History of Any Multi-Drug Resistant Organisms: None Reported Past Surgical History: Cholecystectomy, Orthopedic Surgery Additional Past Surgical History / Comment(s): laparoscopc surgery for endometriosis, cyst removed from left foot, EGD, Past Anesthesia/Blood Transfusion Reactions: Previous Problems w/ Anesthesia Additional Past Anesthesia/Blood Transfusion Reaction / Comment(s): hard to wake up for 48-72 hours after laparoscopic surgery-was in hosp. for 3 days Past Psychological History: Anxiety, Depression, PTSD Smoking Status: Vaper Past Alcohol Use History: None Reported Past Drug Use History: None Reported - Past Family History Mother Family Medical History: No Reported History Additional Family Medical History / Comment(s): hx migraines Father Family Medical History: Coronary Artery Disease (CAD), Hypertension Additional Family Medical History / Comment(s): ddd, alcoholism & drug use General Exam Limitations: no limitations General appearance: alert, in no apparent distress Head exam: Present: atraumatic, normocephalic, normal inspection Respiratory exam: Present: normal lung sounds bilaterally. Absent: respiratory distress, wheezes, rales, rhonchi, stridor Cardiovascular Exam: Present: regular rate, normal rhythm, normal heart sounds. Absent: systolic murmur, diastolic murmur, rubs, gallop, clicks GI/Abdominal exam: Present: soft, tenderness (LUQ), normal bowel sounds. Absent: distended Neurological exam: Present: alert, oriented X3, CN II-XII intact Psychiatric exam: Present: normal affect, normal mood Skin exam: Present: warm, dry, intact, normal color. Absent: rash Course Vital Signs 03/20/22 03/20/22 03/20/22 21:16 21:20 23:00 Temperature 97.5 F L 98.4 F 98.4 F Pulse Rate 120 H 82 79 Respiratory 20 16 16 Rate Blood Pressure 151/99 130/77 128/65 O2 Sat by Pulse 97 98 98 Oximetry Medical Decision Making - Medical Decision Making This is a 31-year-old female who presents to the emergency department for abdominal pain. Lab work obtained and she does have leukocytosis, which is likely reactive. There is otherwise no signs of infection. She does have e levated blood sugar, which is common with her diabetes and poor dietary habits. Symptoms were well-managed with IM Toradol, Zofran, and Benadryl. Patient stable for discharge home. Advised she slowly advance her diet as tolerated and follow through with the pancreatitis specialist at the [facility] as scheduled. Return precautions reviewed in depth, the patient is instructed to return to the emergency department with any new, worsening, or concerning symptoms. Patient verbalized understanding. This case was discussed in detail with the attending ED physician. Presentation, findings, and treatment plan discussed in detail as well. - Lab Data Result diagrams: 03/20/22 21:45 03/20/22 21:45 Lab Results 03/20/22 12 Range/Units 21:45 21:45 WBC 13.5 H (3.8-10.6) k/uL RBC 4.02 (3.80-5.40) m/uL Hgb 12.1 (11.4-16.0) gm/dL Hct 34.6 (34.0-46.0) % MCV 86.0 (80.0-100.0) fL MCH 30.1 (25.0-35.0) pg MCHC 35.0 (31.0-37.0) g/dL RDW 14.0 (11.5-15.5) % Plt Count 348 (150-450) k/uL MPV 8.5 Neutrophils % 86 % Lymphocytes % 10 % Monocytes % 3 % Eosinophils % 1 % Basophils % 0 % Neutrophils # 11.6 H (1.3-7.7) k/uL Lymphocytes # 1.3 (1.0-4.8) k/uL Monocytes # 0.4 (0-1.0) k/uL Eosinophils # 0.1 (0-0.7) k/uL Basophils # 0.0 (0-0.2) k/uL Sodium 136 L (137-145) mmol/L Potassium 4.3 (3.5-5.1) mmol/L Chloride 103 (98-107) mmol/L Carbon Dioxide 18 L (22-30) mmol/L Anion Gap 15 mmol/L BUN 15 (7-17) mg/dL Creatinine 0.69 (0.52-1.04) mg/dL Est GFR (CKD-EPI)AfAm >90 (>60 ml/min/1.73 sqM) Est GFR (CKD-EPI)NonAf >90 (>60 ml/min/1.73 sqM) Glucose 297 H (74-99) mg/dL Calcium 10.7 H (8.4-10.2) mg/dL Total Bilirubin 0.4 (0.2-1.3) mg/dL AST 21 (14-36) U/L ALT 23 (4-34) U/L Alkaline Phosphatase 87 (38-126) U/L Total Protein 7.1 (6.3-8.2) g/dL Albumin 4.0 (3.5-5.0) g/dL Amylase 67 (30-110) U/L Lipase 116 (23-300) U/L Disposition Clinical Impression: Abdominal pain Disposition: HOME SELF-CARE Instructions (If sedation given, give patient instructions): Abdominal Pain (ED) Additional Instructions: Return to the emergency department with any new, worsening, or concerning symptoms. Slowly advance your diet as tolerated and make sure that you remain well-hydrated and get plenty of rest. Follow up with your primary care provider in 1-2 days. Is patient prescribed a controlled substance at d/c from ED?: No Referrals: Isi Carolina MD [Primary Care Provider] - 1-2 days
[2022-03-20] MEDS ORDERED: diphenhydrAMINE 50 MG/ML 1 ML VIAL IM STA (22:39)
[2022-03-20 23:04] VITALS: BP 128/65; PULSE 79
== END 2022-03-20 23:04 | disposition home or self-care (01) ==
LOC: EC 21:08
DX: R10.12 Left upper quadrant pain (principal); J45.909 Unspecified asthma, uncomplicated; E11.9 Type 2 diabetes mellitus without complications; G43.909 Migraine, unspecified, not intractable, without status migrainosus; F41.9 Anxiety disorder, unspecified; F32.A Depression, unspecified; K21.9 Gastro-esophageal reflux disease without esophagitis; Z91.030 Bee allergy status; Z88.8 Allergy status to other drugs, medicaments and biological substances; Z91.040 Latex allergy status; Z91.018 Allergy to other foods; Z88.2 Allergy status to sulfonamides; Z91.038 Other insect allergy status; Z88.0 Allergy status to penicillin; Z90.49 Acquired absence of other specified parts of digestive tract; Z79.1 Long term (current) use of non-steroidal anti-inflammatories (NSAID); Z79.83 Long term (current) use of bisphosphonates; Z79.84 Long term (current) use of oral hypoglycemic drugs; Z79.899 Other long term (current) drug therapy; Z79.4 Long term (current) use of insulin
CPT/HCPCS: 99284; 96372; 36415; 80053; 82150; 83690; 85025; J1200; J2405; J1885

== ENCOUNTER 2022-03-23 22:34 | Emergency (ER) | payer BC, OTHER ==
[2022-03-23 22:47] VITALS: TEMP 97.8
--- NOTE | 2022-03-24 04:47 | ED ---
General Adult HPI - General Chief complaint: Abdominal Pain Stated complaint: Abdominal Pain Time Seen by Provider: 03/24/22 04:37 Source: patient Mode of arrival: ambulatory Limitations: no limitations - History of Present Illness Initial comments: Dictation was produced using Patience dictation software. please excuse any grammatical, word or spelling errors. Chief Complaint: 31-year-old female represents to our emergency department for headache and abdominal pain History of Present Illness: Is a 31-year-old female she is well-known to emergency department for multiple visitations for headache and abdominal pain. Patient again presents to the emergency department for another visit regarding her chronic stable headache and her chronic abdominal pain. Patient states that her symptoms have been ongoing and for the last couple days. The ROS documented in this emergency department record has been reviewed and confirmed by me. Those systems with pertinent positive or negative responses have been documented in the HPI. All other systems are other negative and/or noncontributory. PHYSICAL EXAM: General Impression: Alert and oriented x3, not in acute distress HEENT: Normocephalic atraumatic, extra-ocular movements intact, pupils equal and reactive to light bilaterally, mucous membranes moist. Cardiovascular: Heart regular rate and rhythm Chest: Able to complete full sentences, no retractions, no tachypnea Abdomen: abdomen soft, non-tender, non-distended, no organomegaly Musculoskeletal: Pulses present and equal in all extremities, no peripheral edema Motor: no focal deficits noted Neurological: CN II-XII grossly intact, no focal motor or sensory deficits noted Skin: Intact with no visualized rashes Psych: Normal affect and mood ED course: 31 yo female presents to the emergency department again for headache and abdominal pain. This is her fourth visit in the last 7 days. Tines upon arrival are within acceptable limits. A had evaluated this patient on multiple occasions in the recent past. She appears to be at baseline. Nursing notes and chart review was performed Laboratory evaluation unremarkable. Patient is a history of pancreatitis. Lipase today is normal. Patient discharged. - Related Data Home Medications Medication Instructions Recorded Confirmed ARIPiprazole IM SYRINGE [Abilify 400 mg IM Q30D 07/28/21 11/16/21 Maintena Syringe] Ibuprofen [Motrin] 800 mg PO Q8H PRN 11/16/21 11/16/21 Omeprazole 20 mg PO DAILY 11/16/21 11/16/21 Prochlorperazine [Compazine] 5 mg PO Q12H PRN 11/16/21 11/16/21 Propranolol HCl 20 mg PO DAILY 11/16/21 11/16/21 QUEtiapine FUMARATE [SEROquel XR] 600 mg PO HS 11/16/21 11/16/21 sitaGLIPtin [Januvia] 50 mg PO DAILY 11/16/21 11/16/21 Previous Rx's Medication Instructions Recorded Sucralfate [Carafate] 1 gm PO BID 10 Days #200 ml 11/27/21 Metoclopramide [Reglan] 10 mg PO TID PRN #30 tab 03/09/22 Allergies Allergy/AdvReac Type Severity Reaction Status Date / Time bee pollen Allergy Severe Anaphylaxis Verified 03/23/22 22:47 haloperidol [From Haldol] Allergy Severe QUIT Verified 03/23/22 22:47 BREATHING haloperidol lactate Allergy Severe QUIT Verified 03/23/22 22:47 [From Haldol] BREATHING latex Allergy Severe RASH-THROAT Verified 03/23/22 22:47 CLOSES [place]ri[place] Allergy Anaphylaxis Verified 03/23/22 22:47 coconut Allergy Anaphylaxis Verified 03/23/22 22:47 morphine Allergy Rash/Hives Verified 03/23/22 22:47 pineapple Allergy Anaphylaxis Verified 03/23/22 22:47 prednisone Allergy THROAT Verified 03/23/22 22:47 SWELLS spider venom Allergy Swelling Verified 03/23/22 22:47 Sulfa (Sulfonamide Allergy THROAT Verified 03/23/22 22:47 Antibiotics) SWELLS venom-wasp Allergy Swelling Verified 03/23/22 22:47 venom-wasp protein Allergy Swelling Verified 03/23/22 22:47 promethazine HCl AdvReac Severe Nausea & Verified 03/23/22 22:47 [From Phenergan] Vomiting tramadol AdvReac Severe Nausea & Verified 03/23/22 22:47 Vomiting amoxicillin AdvReac Nausea & Verified 03/23/22 22:47 Vomiting ANTS AdvReac Mild Anaphylaxis Uncoded 03/23/22 22:47 Review of Systems ROS Statement: Those systems with pertinent positive or pertinent negative responses have been documented in the HPI. ROS Other: All systems not noted in ROS Statement are negative. Past Medical History Past Medical History: Asthma, Diabetes Mellitus, GERD/Reflux Additional Past Medical History / Comment(s): migraines, degenerative disk disease, endometriosis, lupus, pancreatitis, DM2- insulin History of Any Multi-Drug Resistant Organisms: None Reported Past Surgical History: Cholecystectomy, Orthopedic Surgery Additional Past Surgical History / Comment(s): laparoscopc surgery for endometriosis, cyst removed from left foot, EGD, Past Anesthesia/Blood Transfusion Reactions: Previous Problems w/ Anesthesia Additional Past Anesthesia/Blood Transfusion Reaction / Comment(s): hard to wake up for 48-72 hours after laparoscopic surgery-was in hosp. for 3 days Past Psychological History: Anxiety, Depression, PTSD Smoking Status: Vaper Past Alcohol Use History: None Reported Past Drug Use History: None Reported - Past Family History Mother Family Medical History: No Reported History Additional Family Medical History / Comment(s): hx migraines Father Family Medical History: Coronary Artery Disease (CAD), Hypertension Additional Family Medical History / Comment(s): ddd, alcoholism & drug use General Exam Limitations: no limitations Course Vital Signs 03/23/22 22:45 Temperature 97.8 F Pulse Rate 105 H Respiratory 20 Rate Blood Pressure 142/98 O2 Sat by Pulse 98 Oximetry Medical Decision Making - Lab Data Result diagrams: 03/24/22 04:37 03/24/22 04:37 Lab Results 03/24/22 03/24/22 Range/Units 04:37 04:37 WBC 5.6 (3.8-10.6) k/uL RBC 3.61 L (3.80-5.40) m/uL Hgb 10.7 L (11.4-16.0) gm/dL Hct 31.4 L (34.0-46.0) % MCV 86.8 (80.0-100.0) fL MCH 29.6 (25.0-35.0) pg MCHC 34.1 (31.0-37.0) g/dL RDW 13.8 (11.5-15.5) % Plt Count 254 (150-450) k/uL MPV 8.9 Neutrophils % 57 % Lymphocytes % 36 % Monocytes % 3 % Eosinophils % 2 % Basophils % 1 % Neutrophils # 3.2 (1.3-7.7) k/uL Lymphocytes # 2.0 (1.0-4.8) k/uL Monocytes # 0.2 (0-1.0) k/uL Eosinophils # 0.1 (0-0.7) k/uL Basophils # 0.0 (0-0.2) k/uL Sodium 135 L (137-145) mmol/L Potassium 4.6 (3.5-5.1) mmol/L Chloride 103 (98-107) mmol/L Carbon Dioxide 25 (22-30) mmol/L Anion Gap 7 mmol/L BUN 15 (7-17) mg/dL Creatinine 0.70 (0.52-1.04) mg/dL Est GFR (CKD-EPI)AfAm >90 (>60 ml/min/1.73 sqM) Est GFR (CKD-EPI)NonAf >90 (>60 ml/min/1.73 sqM) Glucose 227 H (74-99) mg/dL Calcium 10.1 (8.4-10.2) mg/dL Total Bilirubin 0.3 (0.2-1.3) mg/dL AST 14 (14-36) U/L ALT 15 (4-34) U/L Alkaline Phosphatase 62 (38-126) U/L Total Protein 6.0 L (6.3-8.2) g/dL Albumin 3.3 L (3.5-5.0) g/dL Lipase 284 (23-300) U/L Disposition Clinical Impression: Abdominal pain Disposition: HOME SELF-CARE Condition: Good Instructions (If sedation given, give patient instructions): Opioid Use Disorder (ED) Is patient prescribed a controlled substance at d/c from ED?: No Referrals: Isi Carolina MD [Primary Care Provider] - 1-2 days Time of Disposition: 06:57
[2022-03-24 06:42] LABS: Basophils % (A) 1 %; Eosinophils # (A) 0.1 k/uL (0-0.7); Eosinophils % (A) 2 %; HCT 31.4 % (34.0-46.0); HGB 10.7 gm/dL (11.4-16.0); Lymphocytes % (A) 36 %; MCH 29.6 pg (25.0-35.0); MCHC 34.1 g/dL (31.0-37.0); MCV 86.8 fL (80.0-100.0); Mean Platelet Volume 8.9; Monocytes # (A) 0.2 k/uL (0-1.0); Monocytes % (A) 3 %; Neutrophils # (A) 3.2 k/uL (1.3-7.7); Neutrophils % (A) 57 %; Platelet Count 254 k/uL (150-450); RBC 3.61 m/uL (3.80-5.40); RDW 13.8 % (11.5-15.5); WBC 5.6 k/uL (3.8-10.6)
[2022-03-24 06:56] LABS: ALT 15 U/L (4-34); AST 14 U/L (14-36); African American GFR (CKD) >90 (>60 ml/min/1.73 sqM); Albumin 3.3 g/dL (3.5-5.0); Alkaline Phosphatase 62 U/L (38-126); Anion Gap 7 mmol/L; Blood Urea Nitrogen 15 mg/dL (7-17); Calcium 10.1 mg/dL (8.4-10.2); Carbon Dioxide 25 mmol/L (22-30); Chloride 103 mmol/L (98-107); Glucose 227 mg/dL (74-99); Lipase 284 U/L (23-300); Non-African American GFR(CKD) >90 (>60 ml/min/1.73 sqM); Potassium 4.6 mmol/L (3.5-5.1); Sodium 135 mmol/L (137-145); Total Bilirubin 0.3 mg/dL (0.2-1.3)
[2022-03-24 07:27] VITALS: BP 132/78; PULSE 104; RESP 18
== END 2022-03-24 07:27 | disposition home or self-care (01) ==
LOC: EC 22:34
DX: R10.9 Unspecified abdominal pain (principal); J45.909 Unspecified asthma, uncomplicated; E11.9 Type 2 diabetes mellitus without complications; K21.9 Gastro-esophageal reflux disease without esophagitis; F41.9 Anxiety disorder, unspecified; F32.A Depression, unspecified; F17.290 Nicotine dependence, other tobacco product, uncomplicated; Z79.899 Other long term (current) drug therapy; Z79.84 Long term (current) use of oral hypoglycemic drugs; Z88.2 Allergy status to sulfonamides; Z88.5 Allergy status to narcotic agent; Z88.8 Allergy status to other drugs, medicaments and biological substances; Z88.0 Allergy status to penicillin; Z91.030 Bee allergy status; Z91.040 Latex allergy status
CPT/HCPCS: 36415; 80053; 83690; 85025; 99284

== ENCOUNTER 2022-03-26 23:47 | Emergency (ER) | payer BC, OTHER ==
--- NOTE | 2022-03-27 00:55 | ED ---
Recheck HPI - General Chief Complaint: Nausea/Vomiting/Diarrhea Stated Complaint: Abd Pain Time Seen by Provider: 03/27/22 00:54 Source: patient, RN notes reviewed, old records reviewed Mode of arrival: ambulatory Limitations: no limitations - History of Present Illness Initial Comments: This is a 31-year-old female who is well-known to emergency department today. Patient presents with multiple complaints migraine abdominal pain. Per patient's history she presents multiple times a month for similar complaints no change in her symptoms and states the patient's are the same just worse MD Complaint: other -: unknown Returns Today for: persistent/worsening pain related to initial visit Symptoms Since Prior Visit: worsening pain Treatments Prior to Arrival: Given Pain Meds on - Related Data Home Medications Medication Instructions Recorded Confirmed ARIPiprazole IM SYRINGE [Abilify 400 mg IM Q30D 07/28/21 03/30/22 Maintena Syringe] Ibuprofen [Motrin] 800 mg PO Q8H PRN 11/16/21 03/30/22 Omeprazole 20 mg PO DAILY 11/16/21 03/30/22 QUEtiapine FUMARATE [SEROquel XR] 600 mg PO HS 11/16/21 03/30/22 ALPRAZolam [Xanax] 0.25 mg PO DAILY PRN 03/30/22 03/30/22 Acetaminophen [Tylenol Extra 500 mg PO Q4H PRN 03/30/22 03/30/22 Strength] Fenofibrate [Lofibra] 160 mg PO DAILY 03/30/22 03/30/22 Insulin Aspart [NovoLOG Flexpen] See Protocol SQ DIRECTED 03/30/22 03/30/22 Insulin Glargine,Hum.rec.anlog 45 units SQ DAILY 03/30/22 03/30/22 [Lantus Solostar Pen] Naproxen [Naprosyn] 500 mg PO BID 03/30/22 03/30/22 Ondansetron Odt [Zofran ODT] 4 mg SL DAILY PRN 03/30/22 03/30/22 Propranolol HCl [Inderal] 60 mg PO DAILY 03/30/22 03/30/22 metFORMIN HCL [Glucophage] 1,000 mg PO DAILY 03/30/22 03/30/22 tiZANidine [Zanaflex] 4 mg PO BID PRN 03/30/22 03/30/22 Allergies Allergy/AdvReac Type Severity Reaction Status Date / Time bee pollen Allergy Severe Anaphylaxis Verified 04/02/22 01:23 haloperidol [From Haldol] Allergy Severe QUIT Verified 04/02/22 01:23 BREATHING haloperidol lactate Allergy Severe QUIT Verified 04/02/22 01:23 [From Haldol] BREATHING latex Allergy Severe RASH-THROAT Verified 04/02/22 01:23 CLOSES murri[place] Allergy Anaphylaxis Verified 04/02/22 01:23 coconut Allergy Anaphylaxis Verified 04/02/22 01:23 morphine Allergy Rash/Hives Verified 04/02/22 01:23 pineapple Allergy Anaphylaxis Verified 04/02/22 01:23 prednisone Allergy THROAT Verified 04/02/22 01:23 SWELLS spider venom Allergy Swelling Verified 04/02/22 01:23 Sulfa (Sulfonamide Allergy THROAT Verified 04/02/22 01:23 Antibiotics) SWELLS venom-wasp Allergy Swelling Verified 04/02/22 01:23 venom-wasp protein Allergy Swelling Verified 04/02/22 01:23 promethazine HCl AdvReac Severe Nausea & Verified 04/02/22 01:23 [From Phenergan] Vomiting tramadol AdvReac Severe Nausea & Verified 04/02/22 01:23 Vomiting amoxicillin AdvReac Nausea & Verified 04/02/22 01:23 Vomiting ANTS AdvReac Mild Anaphylaxis Uncoded 04/02/22 01:23 Review of Systems ROS Statement: Those systems with pertinent positive or pertinent negative responses have been documented in the HPI. ROS Other: All systems not noted in ROS Statement are negative. Past Medical History Past Medical History: Asthma, Diabetes Mellitus, GERD/Reflux Additional Past Medical History / Comment(s): migraines, degenerative disk disease, endometriosis, lupus, pancreatitis, DM2- insulin History of Any Multi-Drug Resistant Organisms: None Reported Past Surgical History: Cholecystectomy, Orthopedic Surgery Additional Past Surgical History / Comment(s): laparoscopc surgery for endometriosis, cyst removed from left foot, EGD, Past Anesthesia/Blood Transfusion Reactions: Previous Problems w/ Anesthesia Additional Past Anesthesia/Blood Transfusion Reaction / Comment(s): hard to wake up for 48-72 hours after laparoscopic surgery-was in hosp. for 3 days Past Psychological History: Anxiety, Depression, PTSD Smoking Status: Vaper Past Alcohol Use History: None Reported Past Drug Use History: None Reported - Past Family History Mother Family Medical History: No Reported History Additional Family Medical History / Comment(s): hx migraines Father Family Medical History: Coronary Artery Disease (CAD), Hypertension Additional Family Medical History / Comment(s): ddd, alcoholism & drug use General Exam Limitations: no limitations General appearance: alert, in no apparent distress Head exam: Present: atraumatic, normocephalic, normal inspection Eye exam: Present: normal appearance, PERRL, EOMI. Absent: scleral icterus, conjunctival injection, periorbital swelling ENT exam: Present: normal exam, mucous membranes moist Neck exam: Present: normal inspection. Absent: tenderness, meningismus, lymphadenopathy Respiratory exam: Present: normal lung sounds bilaterally. Absent: respiratory distress, wheezes, rales, rhonchi, stridor Cardiovascular Exam: Present: regular rate, normal rhythm, normal heart sounds. Absent: systolic murmur, diastolic murmur, rubs, gallop, clicks GI/Abdominal exam: Present: soft, normal bowel sounds. Absent: distended, tenderness, guarding, rebound, rigid Extremities exam: Present: normal inspection, full ROM, normal capillary refill. Absent: tenderness, pedal edema, joint swelling, calf tenderness Back exam: Present: normal inspection Neurological exam: Present: alert, oriented X3, CN II-XII intact Psychiatric exam: Present: normal affect, normal mood Skin exam: Present: warm, dry, intact, normal color. Absent: rash Course Vital Signs 03/27/22 03/27/22 00:08 02:15 Temperature 98.4 F 98.2 F Pulse Rate 120 H 102 H Respiratory 20 16 Rate Blood Pressure 122/81 O2 Sat by Pulse 98 Oximetry - Reevaluation(s) Reevaluation #1: 03/26/22 Medical record is reviewed Patient symptoms improved here in the ER Patient informed of results and questions answered Reevaluation #2: Patient's caregiver states that she cannot have pain medication he has bilateral pain Medical Decision Making - Medical Decision Making 31 female to the emergency department for evaluation of chronic complaints of migraine headache. At this point patient will be discharged home Disposition Clinical Impression: Nausea & vomiting Disposition: HOME SELF-CARE Condition: Fair Instructions (If sedation given, give patient instructions): Acute Nausea and Vomiting (ED) Is patient prescribed a controlled substance at d/c from ED?: No Referrals: Isi Carolina MD [Primary Care Provider] - 1-2 days Time of Disposition: 01:30
[2022-03-27 02:18] VITALS: BP 122/81; PULSE 102; RESP 16; TEMP 98.2
== END 2022-03-27 02:18 | disposition home or self-care (01) ==
LOC: EC 23:47
DX: R11.2 Nausea with vomiting, unspecified (principal); E11.9 Type 2 diabetes mellitus without complications; K21.9 Gastro-esophageal reflux disease without esophagitis; J45.909 Unspecified asthma, uncomplicated; F17.290 Nicotine dependence, other tobacco product, uncomplicated; F32.A Depression, unspecified; Z91.030 Bee allergy status; Z91.040 Latex allergy status; Z88.2 Allergy status to sulfonamides; Z88.5 Allergy status to narcotic agent; Z91.018 Allergy to other foods; Z88.8 Allergy status to other drugs, medicaments and biological substances; Z79.899 Other long term (current) drug therapy; Z79.4 Long term (current) use of insulin; Z90.89 Acquired absence of other organs
CPT/HCPCS: 99284; 96372; J1790

== ENCOUNTER 2022-03-30 14:33 | Emergency (ER) | payer BC, OTHER ==
[2022-03-30 14:41] VITALS: TEMP 97
[2022-03-30] MEDS ORDERED: diphenhydrAMINE 50 MG/ML 1 ML VIAL IVP STA (15:35)
[2022-03-30] MEDS ORDERED: METOCLOPRAMIDE 5 MG/ML 2 ML VIAL IVP STA (15:35)
[2022-03-30] MEDS ORDERED: KETOROLAC 15 MG/ML 1 ML VIAL IVP STA (15:35)
[2022-03-30 16:31] LABS: Basophils % (A) 0 %; Eosinophils # (A) 0.1 k/uL (0-0.7); Eosinophils % (A) 2 %; HCT 36.1 % (34.0-46.0); HGB 12.5 gm/dL (11.4-16.0); Lymphocytes # (A) 1.9 k/uL (1.0-4.8); Lymphocytes % (A) 34 %; MCH 29.7 pg (25.0-35.0); MCHC 34.7 g/dL (31.0-37.0); MCV 85.6 fL (80.0-100.0); Monocytes # (A) 0.2 k/uL (0-1.0); Monocytes % (A) 4 %; Neutrophils # (A) 3.2 k/uL (1.3-7.7); Neutrophils % (A) 58 %; Platelet Count 271 k/uL (150-450); RBC 4.22 m/uL (3.80-5.40); RDW 14.1 % (11.5-15.5); WBC 5.5 k/uL (3.8-10.6)
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
[2022-03-30 16:47] LABS: ALT 17 U/L (4-34); AST 18 U/L (14-36); African American GFR (CKD) >90 (>60 ml/min/1.73 sqM); Alkaline Phosphatase 53 U/L (38-126); Amylase 59 U/L (30-110); Anion Gap 7 mmol/L; Blood Urea Nitrogen 16 mg/dL (7-17); Carbon Dioxide 22 mmol/L (22-30); Chloride 106 mmol/L (98-107); Glucose 234 mg/dL (74-99); Lipase 163 U/L (23-300); Non-African American GFR(CKD) >90 (>60 ml/min/1.73 sqM); Potassium 4.4 mmol/L (3.5-5.1); Sodium 135 mmol/L (137-145); Total Bilirubin 0.3 mg/dL (0.2-1.3); Total Protein 7.2 g/dL (6.3-8.2)
--- NOTE | 2022-03-30 16:47 | XR ---
EXAMINATION TYPE: XR KUB DATE OF EXAM: 03/30/2022 Abdomen single view. History abdominal pain. Comparison 03/10/2022. FINDINGS: 2 views upright were obtained. There is no sign of intestinal obstruction or pneumoperitoneum. Fecal pattern is normal. No evidence of a mass. There are clips from cholecystectomy. Lung bases are clear. No pathologic calcification. No evidence of a mass. IMPRESSION: Nonacute abdomen. No adverse change
[2022-03-30 19:03] LABS: Appearance,Urine Cloudy (Clear); Bacteria,Urine Occasional /hpf; Bilirubin,Urine Negative (Negative); Blood,Urine Negative (Negative); Color,Urine Yellow; Glucose,Urine (UA) 4+ (Negative); Ketones,Urine Trace (Negative); Leukocyte Esterase,Urine Small (Negative); Mucus,Urine Occasional /hpf; Nitrite,Urine Negative (Negative); Protein,Urine Trace (Negative); RBC,Urine 1 /hpf (0-5); Specific Gravity,Urine 1.029 (1.001-1.035); Squamous Epithelial Cell,Urine 2 /hpf (0-4); WBC,Urine 6 /hpf (0-5)
[2022-03-30 19:45] VITALS: BP 128/77; PULSE 81; RESP 15
== END 2022-03-30 19:51 | disposition home or self-care (01) ==
LOC: EC 14:33
DX: G89.29 Other chronic pain (principal); G43.909 Migraine, unspecified, not intractable, without status migrainosus; J45.909 Unspecified asthma, uncomplicated; E11.9 Type 2 diabetes mellitus without complications; K21.9 Gastro-esophageal reflux disease without esophagitis; F41.9 Anxiety disorder, unspecified; F32.A Depression, unspecified; F17.290 Nicotine dependence, other tobacco product, uncomplicated; Z91.030 Bee allergy status; Z91.040 Latex allergy status; Z91.018 Allergy to other foods; Z88.0 Allergy status to penicillin; Z88.2 Allergy status to sulfonamides; Z91.038 Other insect allergy status; Z88.6 Allergy status to analgesic agent; Z79.4 Long term (current) use of insulin; Z79.84 Long term (current) use of oral hypoglycemic drugs; Z79.899 Other long term (current) drug therapy; Z20.822 Contact with and (suspected) exposure to COVID-19
CPT/HCPCS: 36415; 80053; 82150; 83690; 85025; 81001; 81025; 87636; 74018; 99284; 96374; 96375 ×2; J1200; J2765; J1885

== ENCOUNTER → 2022-04-01 | Outpatient (CLI) | payer BC, OTHER ==
--- NOTE | 2022-04-01 22:30 | MR ---
EXAMINATION TYPE: MR abdomen wo/w con DATE OF EXAM: 04/01/2022 9:50 AM INDICATION: Patient age:Female; 31 years old; Reason for study: R10.12,K86.1,R93.5. Pain, pancreatitis. COMPARISON: CT abdomen pelvis 03/04/2022 TECHNIQUE: Multiplanar multi-sequence imaging was performed without contrast. Post contrast imaging was performed. Subtraction imaging was also performed on a separate workstation and submitted for re view. IV Contrast: 11 cc Gadavist FINDINGS: LOWER CHEST: No gross irregularity. ABDOMEN Liver: Unremarkable. Gallbladder and Bile ducts: Unremarkable. Pancreas: Complex heterogenous pancreatic head/neck masslike area measuring 4.4 x 2.5 x 1.8 cm .There is postcontrast enhancement within this region greater than background parenchyma No ductal dilatation is present. There is a low T1/T2 signal lesion in the pancreatic body measuring 1.9 x 1.2 cm (series 601 image 30, series 901 image 262) that does not enhance on postcontrast imagin g. Spleen: Unremarkable. Adrenal glands: Unremarkable. Kidneys: Unremarkable. Stomach and Bowel: Unremarkable as visualized. Peritoneum: No evidence of pneumoperitoneum, free fluid, or adenopathy. Vasculature: Unremarkable. No aortic aneurysm. Abdominal wall: Unremarkable. Musculoskeletal: The osseous structures appear intact. IMPRESSION: Heterogenous masslike area in the in the pancreatic head and neck region which extends superiorly whi ch could represent sequela of prior pancreatitis such as a pancreatic pseudocyst with or without supe rimposed infection. Underlying lesion such as a solid pseudopapillary epithelial neoplasm is not ent irely excluded. There is low T2 and low T2 signal area within the pancreatic body which may represent gas. Short-term follow-up repeat CT with IV contrast pancreatic mass protocol is recommended.
== END | disposition home or self-care (01) ==
LOC: RADMRIMAIN 08:14
PROVIDERS: ATTEND Nurse Practitioner Family
DX: K86.1 Other chronic pancreatitis (principal); R93.5 Abnormal findings on diagnostic imaging of other abdominal regions, including retroperitoneum
CPT/HCPCS: 74183; A9585

== ENCOUNTER 2022-04-02 01:05 | Emergency (ER) | payer BC, OTHER ==
[2022-04-02 01:23] VITALS: PULSE 102; TEMP 98.1
[2022-04-02] MEDS ORDERED: ONDANSETRON ODT 4 MG TAB PO STA (02:30)
[2022-04-02] MEDS ORDERED: diphenhydrAMINE 50 MG/ML 1 ML VIAL IM STA (02:30)
[2022-04-02] MEDS ORDERED: KETOROLAC 15 MG/ML 1 ML VIAL IM STA (02:30)
[2022-04-02] MEDS ORDERED: HYDROmorphone 1 MG/ML 1 ML SYRINGE IM STA (03:25)
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
[2022-04-02 04:43] VITALS: BP 98/60; RESP 18
== END 2022-04-02 04:42 | disposition home or self-care (01) ==
LOC: EC 01:05
DX: R10.12 Left upper quadrant pain (principal); J45.909 Unspecified asthma, uncomplicated; E11.9 Type 2 diabetes mellitus without complications; K21.9 Gastro-esophageal reflux disease without esophagitis; F17.290 Nicotine dependence, other tobacco product, uncomplicated; F41.9 Anxiety disorder, unspecified; F32.A Depression, unspecified; Z79.4 Long term (current) use of insulin; Z79.899 Other long term (current) drug therapy; Z79.84 Long term (current) use of oral hypoglycemic drugs; Z88.2 Allergy status to sulfonamides; Z88.0 Allergy status to penicillin; Z91.030 Bee allergy status; Z91.040 Latex allergy status; Z91.018 Allergy to other foods; Z88.8 Allergy status to other drugs, medicaments and biological substances; Z88.5 Allergy status to narcotic agent; Y04.8XXA Assault by other bodily force, initial encounter
CPT/HCPCS: 74176; 99284; 96372 ×3; J1200; J1170; J1885

== ENCOUNTER 2022-04-06 02:44 | Emergency (ER) | payer BC, OTHER ==
[2022-04-06] MEDS ORDERED: KETOROLAC 15 MG/ML 1 ML VIAL IM STA (03:13)
[2022-04-06] MEDS ORDERED: DICYCLOMINE 10 MG/ML 2 ML AMP IM STA (03:13)
[2022-04-06] MEDS ORDERED: diphenhydrAMINE 50 MG/ML 1 ML VIAL IM STA (03:13)
[2022-04-06] MEDS ORDERED: METOCLOPRAMIDE 5 MG/ML 2 ML VIAL IM STA (03:13)
[2022-04-06 03:14] VITALS: RESP 18; TEMP 98.5
--- NOTE | 2022-04-06 03:20 | ED ---
Abdominal Pain HPI - General Chief Complaint: Abdominal Pain Stated Complaint: abd pain Time Seen by Provider: 04/06/22 03:03 Source: patient, RN notes reviewed Mode of arrival: ambulatory - History of Present Illness Initial Comments: This is a 31-year-old female who is well-known to emergency department. She again presents with chronic abdominal pain, recurrent headache, and recurrent nausea. She actually states that she has no vomiting. Patient has had some diarrhea. POSITIVE for recurrent headache, 8 out of 10 in intensity , no fever or chills, no changes in vision or hearing, no sore throat or difficulty with speech, no neck pain, no chest pain or shortness of breath, no changes in urination no numbness or tingling, no extremity pain, no skin rashes or lesions. Symptomology essentially normal and unchanged. Patient does see a gastrointestinal specialist at the [facility]. States she has an upcoming appointment. Past medical, surgical, social, and family history reviewed. MD Complaint: abdominal pain - Related Data Home Medications Medication Instructions Recorded Confirmed ARIPiprazole IM SYRINGE [Abilify 400 mg IM Q30D 07/28/21 03/30/22 Maintena Syringe] Ibuprofen [Motrin] 800 mg PO Q8H PRN 11/16/21 03/30/22 Omeprazole 20 mg PO DAILY 11/16/21 03/30/22 QUEtiapine FUMARATE [SEROquel XR] 600 mg PO HS 11/16/21 03/30/22 ALPRAZolam [Xanax] 0.25 mg PO DAILY PRN 03/30/22 03/30/22 Acetaminophen [Tylenol Extra 500 mg PO Q4H PRN 03/30/22 03/30/22 Strength] Fenofibrate [Lofibra] 160 mg PO DAILY 03/30/22 03/30/22 Insulin Aspart [NovoLOG Flexpen] See Protocol SQ DIRECTED 03/30/22 03/30/22 Insulin Glargine,Hum.rec.anlog 45 units SQ DAILY 03/30/22 03/30/22 [Lantus Solostar Pen] Naproxen [Naprosyn] 500 mg PO BID 03/30/22 03/30/22 Ondansetron Odt [Zofran ODT] 4 mg SL DAILY PRN 03/30/22 03/30/22 Propranolol HCl [Inderal] 60 mg PO DAILY 03/30/22 03/30/22 metFORMIN HCL [Glucophage] 1,000 mg PO DAILY 03/30/22 03/30/22 tiZANidine [Zanaflex] 4 mg PO BID PRN 03/30/22 03/30/22 Allergies Allergy/AdvReac Type Severity Reaction Status Date / Time bee pollen Allergy Severe Anaphylaxis Verified 04/06/22 03:14 haloperidol [From Haldol] Allergy Severe QUIT Verified 04/06/22 03:14 BREATHING haloperidol lactate Allergy Severe QUIT Verified 04/06/22 03:14 [From Haldol] BREATHING latex Allergy Severe RASH-THROAT Verified 04/06/22 03:14 CLOSES murrieta Allergy Anaphylaxis Verified 04/06/22 03:14 coconut Allergy Anaphylaxis Verified 04/06/22 03:14 morphine Allergy Rash/Hives Verified 04/06/22 03:14 pineapple Allergy Anaphylaxis Verified 04/06/22 03:14 prednisone Allergy THROAT Verified 04/06/22 03:14 SWELLS spider venom Allergy Swelling Verified 04/06/22 03:14 Sulfa (Sulfonamide Allergy THROAT Verified 04/06/22 03:14 Antibiotics) SWELLS venom-wasp Allergy Swelling Verified 04/06/22 03:14 venom-wasp protein Allergy Swelling Verified 04/06/22 03:14 promethazine HCl AdvReac Severe Nausea & Verified 04/06/22 03:14 [From Phenergan] Vomiting tramadol AdvReac Severe Nausea & Verified 04/06/22 03:14 Vomiting amoxicillin AdvReac Nausea & Verified 04/06/22 03:14 Vomiting ANTS AdvReac Mild Anaphylaxis Uncoded 04/06/22 03:14 Review of Systems ROS Statement: Those systems with pertinent positive or pertinent negative responses have been documented in the HPI. ROS Other: All systems not noted in ROS Statement are negative. Past Medical History Past Medical History: Asthma, Diabetes Mellitus, GERD/Reflux Additional Past Medical History / Comment(s): migraines, degenerative disk disease, endometriosis, lupus, pancreatitis, DM2- insulin History of Any Multi-Drug Resistant Organisms: None Reported Past Surgical History: Cholecystectomy, Orthopedic Surgery Additional Past Surgical History / Comment(s): laparoscopc surgery for endometriosis, cyst removed from left foot, EGD, Past Anesthesia/Blood Transfusion Reactions: Previous Problems w/ Anesthesia Additional Past Anesthesia/Blood Transfusion Reaction / Comment(s): hard to wake up for 48-72 hours after laparoscopic surgery-was in hosp. for 3 days Past Psychological History: Anxiety, Depression, PTSD Smoking Status: Vaper Past Alcohol Use History: None Reported Past Drug Use History: None Reported - Past Family History Mother Family Medical History: No Reported History Additional Family Medical History / Comment(s): hx migraines Father Family Medical History: Coronary Artery Disease (CAD), Hypertension Additional Family Medical History / Comment(s): ddd, alcoholism & drug use General Exam - General Exam Comments Initial Comments: Patient noted to be tachycardic here. However does not appear to be ill or toxic. No fever. Remainder of vital signs are stable. General appearance: obese Head exam: Present: atraumatic, normocephalic, normal inspection Eye exam: Present: normal appearance, PERRL, EOMI. Absent: scleral icterus, conjunctival injection, periorbital swelling ENT exam: Present: normal exam, mucous membranes moist Neck exam: Present: normal inspection, full ROM. Absent: tenderness, meningismus, lymphadenopathy Respiratory exam: Present: normal lung sounds bilaterally. Absent: respiratory distress, wheezes, rales, rhonchi, stridor, chest wall tenderness, accessory muscle use, decreased breath sounds, prolonged expiratory Cardiovascular Exam: Present: regular rate, normal rhythm, normal heart sounds. Absent: systolic murmur, diastolic murmur, rubs, gallop, clicks GI/Abdominal exam: Present: soft, tenderness (Generalized tenderness, no rebound or percussion tenderness.), normal bowel sounds. Absent: distended, guarding, rebound, rigid Extremities exam: Present: normal inspection, full ROM, normal capillary refill. Absent: tenderness, pedal edema, joint swelling, calf tenderness Back exam: Present: normal inspection Neurological exam: Present: alert, oriented X3, CN II-XII intact Psychiatric exam: Present: normal affect, normal mood Skin exam: Present: warm, dry, intact, normal color. Absent: rash Course Vital Signs 04/06/22 04/06/22 03:11 04:12 Temperature 98.5 F Pulse Rate 117 H 108 H Respiratory 18 18 Rate Blood Pressure 122/68 129/85 O2 Sat by Pulse 99 97 Oximetry Medical Decision Making - Medical Decision Making Was pt. sent in by a medical professional or institution? @ -no Did you speak to anyone other than the patient for history? @ -no Did you review nursing and triage notes? @ -agree Were old charts reviewed? @ -Reviewed old charts and laboratory investigations, patient just had a computed tomography scan which was essentially normal on April 02 Differential Diagnosis? @ -[Acute exacerbation of chronic abdominal pain, patient of vomiting, does not appear to be consistent with pancreatitis. Does not appear to be consistent with cardiopulmonary disease. Appendicitis unlikely this patient has no significant right lower quadrant tenderness. Patient has mild generalized tenderness. Voluntary guarding without rebound or percussion tenderness. No radiation to the back. No irritative voiding. Unlikely to be urinary tract infection.Differential Abdominal Pain Men: Appendicitis, cholecystitis--vision status post cholecystectomy, diverticulosis, ischemic bowel, pancreatitis, hepatitis, UTI, gastroenteritis, AAA, incarcerated hernia, bowel obstruction, constipation, inflammatory bowel, hepatitis, peptic ulcer disease, splenic infarction, perforated viscus, testicular torsion, this is not meant to be an all-inclusive list] X-rays interpreted by me (1pt min.)? @ -[Independent interpretation by me.] What testing was considered but not performed? (CT, X-rays, U/S, labs)? Why? @ [I did consider laboratory investigations as well as computed tomography scan. However the patient just had a computed tomography scan on April 02. Patient did not appear to be ill or toxic. This appears to be consistent with the patient's chronic abdominal pain. Discussed this with the patient. Patient was satisfied with the medication she received here. Further testing was deferred through shared decision-making..] What meds were considered but not given? Why? @ -[none] Did you discuss the management of the patient with other professionals? @ -ED attending physician Did you reconcile home meds? @ -[none] Was smoking cessation discussed for >3mins.? @ -Not applicable What co-morbidities impacted this encounter? (DM, HTN, Smoking, COPD, CAD, Cancer, CVA, Hep., AIDS, mental health diagnosis, sleep apnea, morbid obesity)? @ -[Patient has chronic and recurrent abdominal pain as well as a history of chronic pancreatitis. Was patient admitted / discharged? @ -[Patient came in with abdominal pain consistent with her chronic abdominal pain, as well as headache consistent with her chronic and recurrent headache. Patient no vomiting. Patient deferred any further testing after medications were given. Treatment plan discussed in detail. Patient states she feels well enough to go home. Patient actually has an appointment on April 07 at [facility] gastroenterology. We will have her make this appointment without fail. I did discuss this with the patient. Patient deferred any further workup. Patient's heart rate has stabilized.] Undiagnosed new problem with uncertain prognosis? @ -[none] Drug Therapy requiring intensive monitoring for toxicity (Heparin, Nitro, Insulin, Cardizem)? @ -[none] Were any procedures done? @ -[none] Diagnosis/symptom? @ -[Chronic abdominal pain and chronic and recurrent headache Acute, or Chronic, or Acute on Chronic? @ -[Chronic Uncomplicated (without systemic symptoms) or Complicated (systemic symptoms)? @ -[default] Side effects of treatment? @ -[none] Exacerbation, Progression, or Severe Exacerbation] @ -Exacerbation, mild Poses a threat to life or bodily function? @ -[Unlikely] The case was discussed in detail with ED attending physician. Presentation, findings, treatment plan discussed in detail. Supervising physician Dr. Lopez - Radiology Data Radiology results: report reviewed (Independent interpretation of the KUB and one view chest x-ray by me shows no acute findings. Patient may have increased stool pattern. No evidence of obstructive pattern. Reviewed radiology interpretation.), image reviewed Disposition Clinical Impression: Chronic abdominal pain, Chronic headache Disposition: HOME SELF-CARE Condition: Stable Instructions (If sedation given, give patient instructions): Acute Headache (ED), Abdominal Pain (ED) Additional Instructions: Follow-up with your regular physician as directed. Return to the ER immediately if any symptoms worsen, new symptoms arise, or any other problems develop. Proceeded to follow-up with your it security specialist at the [facility]. Private capsaicin cream once or twice daily to your abdomen. This is been shown to help with chronic and recurrent abdominal discomfort. Is patient prescribed a controlled substance at d/c from ED?: No Referrals: Isi Carolina MD [Primary Care Provider] - As Soon As Possible Time of Disposition: 04:19
[2022-04-06] MEDS ORDERED: CAPSAICIN 0.025% CREAM 60 GM TUBE TOPICAL ONE (03:30)
--- NOTE | 2022-04-06 03:48 | XR ---
EXAMINATION TYPE: XR KUB DATE OF EXAM: 04/06/2022 COMPARISON: 03/30/2022 HISTORY: Abdominal pain TECHNIQUE: 2 views upright FINDINGS: There is no sign of intestinal obstruction or pneumoperitoneum. Fecal pattern is normal. Th ere are clips from cholecystectomy. No evidence of a mass. No pathologic calcification over the kidne ys. Lung bases are clear. IMPRESSION: Nonacute abdomen.
--- NOTE | 2022-04-06 03:50 | XR ---
EXAMINATION TYPE: XR chest 1V DATE OF EXAM: 04/06/2022 COMPARISON: 12/28/2021 HISTORY: Abdominal pain TECHNIQUE: FINDINGS: Heart and mediastinum are normal. Lungs are clear. Diaphragm is normal. Bony thorax appears normal. IMPRESSION: Normal chest.
[2022-04-06 04:12] VITALS: BP 129/85; PULSE 108
== END 2022-04-06 04:28 | disposition home or self-care (01) ==
LOC: EC 02:44
DX: G89.29 Other chronic pain (principal); R10.84 Generalized abdominal pain; R51.9 Headache, unspecified; J45.909 Unspecified asthma, uncomplicated; E11.9 Type 2 diabetes mellitus without complications; K21.9 Gastro-esophageal reflux disease without esophagitis; F41.9 Anxiety disorder, unspecified; F32.A Depression, unspecified; F17.290 Nicotine dependence, other tobacco product, uncomplicated; Z91.030 Bee allergy status; Z91.040 Latex allergy status; Z91.018 Allergy to other foods; Z91.038 Other insect allergy status; Z88.2 Allergy status to sulfonamides; Z88.0 Allergy status to penicillin; Z79.4 Long term (current) use of insulin; Z79.899 Other long term (current) drug therapy; Z79.84 Long term (current) use of oral hypoglycemic drugs
CPT/HCPCS: 71045; 74018; 99284; 96372 ×4; J1200; J0500; J2765; J1885

== ENCOUNTER 2022-04-09 22:23 | Emergency (ER) | payer BC, OTHER ==
[2022-04-09] MEDS ORDERED: SODIUM CHLORIDE 0.9% 500 ML 500 ML IV STA (22:44)
[2022-04-09] MEDS ORDERED: DICYCLOMINE 10 MG/ML 2 ML AMP IM STA (22:44)
[2022-04-09] MEDS ORDERED: METOCLOPRAMIDE 5 MG/ML 2 ML VIAL IVP STA (22:59)
[2022-04-09] MEDS ORDERED: ONDANSETRON ODT 4 MG TAB PO STA (23:20)
[2022-04-09] MEDS ORDERED: diphenhydrAMINE 50 MG/ML 1 ML VIAL IM STA (23:21)
[2022-04-09] MEDS ORDERED: KETOROLAC 15 MG/ML 1 ML VIAL IM STA (23:22)
[2022-04-10 01:02] LABS: Basophils % (A) 1 %; Eosinophils # (A) 0.2 k/uL (0-0.7); Eosinophils % (A) 5 %; HCT 36.7 % (34.0-46.0); HGB 12.5 gm/dL (11.4-16.0); Lymphocytes # (A) 2.1 k/uL (1.0-4.8); Lymphocytes % (A) 43 %; MCH 28.8 pg (25.0-35.0); MCHC 34.1 g/dL (31.0-37.0); MCV 84.5 fL (80.0-100.0); Mean Platelet Volume 8.3; Monocytes # (A) 0.2 k/uL (0-1.0); Monocytes % (A) 5 %; Neutrophils # (A) 2.1 k/uL (1.3-7.7); Neutrophils % (A) 44 %; Platelet Count 280 k/uL (150-450); RBC 4.34 m/uL (3.80-5.40); RDW 13.8 % (11.5-15.5); WBC 4.8 k/uL (3.8-10.6)
[2022-04-10 01:11] LABS: ALT 22 U/L (4-34); AST 24 U/L (14-36); African American GFR (CKD) >90 (>60 ml/min/1.73 sqM); Albumin 4.1 g/dL (3.5-5.0); Alkaline Phosphatase 63 U/L (38-126); Amylase 53 U/L (30-110); Anion Gap 9 mmol/L; Blood Urea Nitrogen 14 mg/dL (7-17); Calcium 10.9 mg/dL (8.4-10.2); Carbon Dioxide 23 mmol/L (22-30); Chloride 105 mmol/L (98-107); Glucose 257 mg/dL (74-99); Lipase 310 U/L (23-300); Non-African American GFR(CKD) >90 (>60 ml/min/1.73 sqM); Potassium 4.6 mmol/L (3.5-5.1); Sodium 137 mmol/L (137-145); Total Bilirubin 0.3 mg/dL (0.2-1.3); Total Protein 7.4 g/dL (6.3-8.2)
[2022-04-10] MEDS ORDERED: INSULIN REGULAR 100 UNIT/ML VIAL (IV) SQ STA (02:25)
--- NOTE | 2022-04-10 02:28 | CT ---
EXAMINATION TYPE: CT abdomen pelvis w con DATE OF EXAM: 04/10/2022 COMPARISON: 03/04/2022 HISTORY: EVALUATE PANCREAS. F/U TO MRI CT DLP: 1462.8 mGycm Automated exposure control for dose reduction was used. CONTRAST: Performed with IV Contrast, patient injected with 100ML mL of Isovue 300. Images obtained from the diaphragm to the floor of the pelvis with the IV contrast. There is minimal subsegmental atelectasis at the right lung base. No pleural effusion. Heart size is normal. No pericardial effusion. Liver spleen and stomach appear intact. There are clips from cholecystectomy. There is 2 x 1 cm elong ated fluid collection in the posterior body of the pancreas. There is no adrenal mass. Kidneys show normal size and contour. There is satisfactory contrast opacif ication. No hydronephrosis. Ureters are not dilated. No retroperitoneal adenopathy. Appendix is later al and posterior and appears normal. The bladder distends smoothly. No inguinal hernia. No free fluid in the pelvis. The uterus is anteverted. No free fluid in the pelvis. No pelvic mass. Lumbar vertebra have normal spacing and alignment. Poste rior elements are intact. No compression fracture. Sacroiliac joints are intact. There is no mesenter ic edema. No ascites or free air. No sign of a bowel obstruction. IMPRESSION: Small elongated cystic fluid collection in the body of the pancreas could be a pseudocyst. There is s ignificant clearing of the extensive edema in the pancreatic head and body compared to old exam. This is consistent with resolving pancreatitis. There is some minimal pleural reaction and atelectasis at the right posterior lung base without coats e.
[2022-04-10] MEDS ORDERED: HYDROcodone/APAP 5-325MG 1 EACH TAB PO STA (02:29)
[2022-04-10] MEDS ORDERED: METOCLOPRAMIDE 5 MG/ML 2 ML VIAL IVP STA (03:11)
--- NOTE | 2022-04-10 03:30 | ED ---
General Adult HPI - General Chief complaint: Nausea/Vomiting/Diarrhea Stated complaint: abd pain Time Seen by Provider: 04/09/22 22:44 Source: patient Mode of arrival: EMS Limitations: no limitations - History of Present Illness Initial comments: This patient is a 31-year-old woman who presents with a constellation of symptoms. She states she is having a migraine headache. She states that she does get migraine headaches she believes that this one was brought on because she is not taking much in way of oral intake due to pain related to her chronic pancreatitis. The patient states she is having abdominal pain, and the upper abdomen going towards the back. She is having nausea and vomiting. She was also concerned because her recent MRI showed a finding related to her pancreas and it was recommended that she have further testing. No fever or chills. No hematemesis. No bloody bowel movements or dark tarry stools. -: days(s) Location: head Radiation: non-radiation Quality: aching Consistency: constant Improves with: none Worsens with: none Associated Symptoms: nausea/vomiting Treatments Prior to Arrival: none - Related Data Home Medications Medication Instructions Recorded Confirmed ARIPiprazole IM SYRINGE [Abilify 400 mg IM Q30D 07/28/21 03/30/22 Maintena Syringe] Ibuprofen [Motrin] 800 mg PO Q8H PRN 11/16/21 03/30/22 Omeprazole 20 mg PO DAILY 11/16/21 03/30/22 QUEtiapine FUMARATE [SEROquel XR] 600 mg PO HS 11/16/21 03/30/22 ALPRAZolam [Xanax] 0.25 mg PO DAILY PRN 03/30/22 03/30/22 Acetaminophen [Tylenol Extra 500 mg PO Q4H PRN 03/30/22 03/30/22 Strength] Fenofibrate [Lofibra] 160 mg PO DAILY 03/30/22 03/30/22 Insulin Aspart [NovoLOG Flexpen] See Protocol SQ DIRECTED 03/30/22 03/30/22 Insulin Glargine,Hum.rec.anlog 45 units SQ DAILY 03/30/22 03/30/22 [Lantus Solostar Pen] Naproxen [Naprosyn] 500 mg PO BID 03/30/22 03/30/22 Ondansetron Odt [Zofran ODT] 4 mg SL DAILY PRN 03/30/22 03/30/22 Propranolol HCl [Inderal] 60 mg PO DAILY 03/30/22 03/30/22 metFORMIN HCL [Glucophage] 1,000 mg PO DAILY 03/30/22 03/30/22 tiZANidine [Zanaflex] 4 mg PO BID PRN 03/30/22 03/30/22 Allergies Allergy/AdvReac Type Severity Reaction Status Date / Time bee pollen Allergy Severe Anaphylaxis Verified 04/09/22 22:32 haloperidol [From Haldol] Allergy Severe QUIT Verified 04/09/22 22:32 BREATHING haloperidol lactate Allergy Severe QUIT Verified 04/09/22 22:32 [From Haldol] BREATHING latex Allergy Severe RASH-THROAT Verified 04/09/22 22:32 CLOSES murri[place] Allergy Anaphylaxis Verified 04/09/22 22:32 coconut Allergy Anaphylaxis Verified 04/09/22 22:32 morphine Allergy Rash/Hives Verified 04/09/22 22:32 pineapple Allergy Anaphylaxis Verified 04/09/22 22:32 prednisone Allergy THROAT Verified 04/09/22 22:32 SWELLS spider venom Allergy Swelling Verified 04/09/22 22:32 Sulfa (Sulfonamide Allergy THROAT Verified 04/09/22 22:32 Antibiotics) SWELLS venom-wasp Allergy Swelling Verified 04/09/22 22:32 venom-wasp protein Allergy Swelling Verified 04/09/22 22:32 promethazine HCl AdvReac Severe Nausea & Verified 04/09/22 22:32 [From Phenergan] Vomiting tramadol AdvReac Severe Nausea & Verified 04/09/22 22:32 Vomiting amoxicillin AdvReac Nausea & Verified 04/09/22 22:32 Vomiting ANTS AdvReac Mild Anaphylaxis Uncoded 04/09/22 22:32 Review of Systems ROS Statement: Those systems with pertinent positive or pertinent negative responses have been documented in the HPI. ROS Other: All systems not noted in ROS Statement are negative. Constitutional: Denies: fever, chills, weakness Eyes: Denies: vision change Respiratory: Denies: cough, dyspnea Cardiovascular: Denies: chest pain, palpitations, edema, syncope Gastrointestinal: Reports: as per HPI, abdominal pain, nausea, vomiting. Denies: constipation, hematemesis, melena, hematochezia Genitourinary: Denies: dysuria, hematuria Musculoskeletal: Denies: back pain Skin: Denies: rash Neurological: Reports: as per HPI, headache. Denies: weakness, numbness, paresthesias Past Medical History Past Medical History: Asthma, Diabetes Mellitus, GERD/Reflux Additional Past Medical History / Comment(s): migraines, degenerative disk disease, endometriosis, lupus, pancreatitis, DM2- insulin History of Any Multi-Drug Resistant Organisms: None Reported Past Surgical History: Cholecystectomy, Orthopedic Surgery Additional Past Surgical History / Comment(s): laparoscopc surgery for endometriosis, cyst removed from left foot, EGD, Past Anesthesia/Blood Transfusion Reactions: Previous Problems w/ Anesthesia Additional Past Anesthesia/Blood Transfusion Reaction / Comment(s): hard to wake up for 48-72 hours after laparoscopic surgery-was in hosp. for 3 days Past Psychological History: Anxiety, Depression, PTSD Smoking Status: Vaper Past Alcohol Use History: None Reported Past Drug Use History: None Reported - Past Family History Mother Family Medical History: No Reported History Additional Family Medical History / Comment(s): hx migraines Father Family Medical History: Coronary Artery Disease (CAD), Hypertension Additional Family Medical History / Comment(s): ddd, alcoholism & drug use General Exam Limitations: no limitations General appearance: alert, in no apparent distress Head exam: Present: atraumatic, normocephalic Eye exam: Present: normal appearance, PERRL, EOMI. Absent: scleral icterus, conjunctival injection ENT exam: Present: mucous membranes dry Neck exam: Present: normal inspection Respiratory exam: Present: normal lung sounds bilaterally. Absent: respiratory distress, wheezes, rales, rhonchi, stridor Cardiovascular Exam: Present: regular rate, normal rhythm, normal heart sounds. Absent: systolic murmur, diastolic murmur, rubs, gallop GI/Abdominal exam: Present: soft, tenderness (Mild upper abdominal tenderness without rebound or guarding). Absent: distended, guarding, rebound, rigid, mass, pulsatile mass, hernia Extremities exam: Present: normal inspection, normal capillary refill. Absent: pedal edema, calf tenderness Back exam: Present: normal inspection. Absent: CVA tenderness (R), CVA tenderness (L) Neurological exam: Present: alert, oriented X3. Absent: motor sensory deficit Skin exam: Present: warm, dry, intact, normal color. Absent: rash Course Vital Signs 04/09/22 04/10/22 22:26 04:40 Temperature 98.2 F 98.1 F Pulse Rate 102 H 98 Respiratory 20 18 Rate Blood Pressure 117/91 120/88 O2 Sat by Pulse 100 Oximetry Medical Decision Making - Medical Decision Making Patient is 31-year-old woman here with abdominal pain and headache are both somewhat usual for her. I reviewed the MRI finding that she had discussed. They did recommend a follow-up CT with contrast. This is performed and shows a suspected pancreatic pseudocyst. The patient is given symptomatic treatment and is feeling somewhat better. Discussed appropriate further care and follow-up, including maintaining pancreatic diet and following up with surgery regarding the pseudocyst. Did discuss that at some point if this were to increase in size they do sometimes require surgical intervention. - Lab Data Result diagrams: 04/09/22 23:10 04/09/22 23:10 Lab Results 04/09/22 04/09/22 Range/Units 23:10 23:10 WBC 4.8 (3.8-10.6) k/uL RBC 4.34 (3.80-5.40) m/uL Hgb 12.5 (11.4-16.0) gm/dL Hct 36.7 (34.0-46.0) % MCV 84.5 (80.0-100.0) fL MCH 28.8 (25.0-35.0) pg MCHC 34.1 (31.0-37.0) g/dL RDW 13.8 (11.5-15.5) % Plt Count 280 (150-450) k/uL MPV 8.3 Neutrophils % 44 % Lymphocytes % 43 % Monocytes % 5 % Eosinophils % 5 % Basophils % 1 % Neutrophils # 2.1 (1.3-7.7) k/uL Lymphocytes # 2.1 (1.0-4.8) k/uL Monocytes # 0.2 (0-1.0) k/uL Eosinophils # 0.2 (0-0.7) k/uL Basophils # 0.0 (0-0.2) k/uL Sodium 137 (137-145) mmol/L Potassium 4.6 (3.5-5.1) mmol/L Chloride 105 (98-107) mmol/L Carbon Dioxide 23 (22-30) mmol/L Anion Gap 9 mmol/L BUN 14 (7-17) mg/dL Creatinine 0.77 (0.52-1.04) mg/dL Est GFR (CKD-EPI)AfAm >90 (>60 ml/min/1.73 sqM) Est GFR (CKD-EPI)NonAf >90 (>60 ml/min/1.73 sqM) Glucose 257 H (74-99) mg/dL Calcium 10.9 H (8.4-10.2) mg/dL Total Bilirubin 0.3 (0.2-1.3) mg/dL AST 24 (14-36) U/L ALT 22 (4-34) U/L Alkaline Phosphatase 63 (38-126) U/L Total Protein 7.4 (6.3-8.2) g/dL Albumin 4.1 (3.5-5.0) g/dL Amylase 53 (30-110) U/L Lipase 310 H (23-300) U/L Disposition Clinical Impression: Acute on chronic pancreatitis, Pancreatic pseudocyst, Cephalgia Disposition: HOME SELF-CARE Condition: Good Instructions (If sedation given, give patient instructions): Pancreatic Pseudocyst (DC) Is patient prescribed a controlled substance at d/c from ED?: No Referrals: Isi Carolina MD [Primary Care Provider] - 1-2 days Chidi Gtz MD [Medical Doctor] - 1-2 days
[2022-04-10] MEDS ORDERED: diphenhydrAMINE 50 MG/ML 1 ML VIAL IVP STA (04:13)
[2022-04-10] MEDS ORDERED: KETOROLAC 15 MG/ML 1 ML VIAL IVP STA (04:14)
[2022-04-10 04:42] VITALS: BP 120/88; PULSE 98; RESP 18; TEMP 98.1
== END 2022-04-10 05:05 | disposition home or self-care (01) ==
LOC: EC 22:23
DX: K86.1 Other chronic pancreatitis (principal); K86.3 Pseudocyst of pancreas; R51.9 Headache, unspecified; J45.909 Unspecified asthma, uncomplicated; E11.9 Type 2 diabetes mellitus without complications; K21.9 Gastro-esophageal reflux disease without esophagitis; F41.9 Anxiety disorder, unspecified; F32.A Depression, unspecified; F17.290 Nicotine dependence, other tobacco product, uncomplicated; Z91.040 Latex allergy status; Z91.030 Bee allergy status; Z88.5 Allergy status to narcotic agent; Z88.2 Allergy status to sulfonamides; Z88.0 Allergy status to penicillin; Z88.1 Allergy status to other antibiotic agents; Z88.8 Allergy status to other drugs, medicaments and biological substances; Z79.84 Long term (current) use of oral hypoglycemic drugs; Z79.4 Long term (current) use of insulin; Z79.899 Other long term (current) drug therapy
CPT/HCPCS: 99285 ×2; 96374 ×2; 96375 ×3; 96372 ×4; 36415; 80053; 82150; 83690; 85025; 74177; J1200 ×2; J0500; J2765; J1885 ×2; Q9967

== ENCOUNTER 2022-04-18 22:15 | Emergency (ER) | payer BC, OTHER ==
[2022-04-18 22:27] VITALS: TEMP 98.5
[2022-04-18] MEDS ORDERED: ONDANSETRON 4 MG/2 ML VIAL IVP STA (22:41)
[2022-04-18] MEDS ORDERED: SODIUM CHLORIDE 0.9% 1,000 ML IV STA (22:41)
[2022-04-18] MEDS ORDERED: HYDROmorphone 1 MG/ML 1 ML SYRINGE IVP STA (22:41)
[2022-04-18] MEDS ORDERED: KETOROLAC 15 MG/ML 1 ML VIAL IVP STA (23:12)
[2022-04-18 23:28] LABS: Basophils % (A) 0 %; Eosinophils # (A) 0.2 k/uL (0-0.7); Eosinophils % (A) 3 %; HCT 37.3 % (34.0-46.0); HGB 12.6 gm/dL (11.4-16.0); Lymphocytes # (A) 2.1 k/uL (1.0-4.8); Lymphocytes % (A) 39 %; MCH 29.1 pg (25.0-35.0); MCHC 33.8 g/dL (31.0-37.0); MCV 86.1 fL (80.0-100.0); Mean Platelet Volume 8.4; Monocytes # (A) 0.2 k/uL (0-1.0); Monocytes % (A) 3 %; Neutrophils # (A) 2.9 k/uL (1.3-7.7); Neutrophils % (A) 53 %; Platelet Count 278 k/uL (150-450); RBC 4.34 m/uL (3.80-5.40); WBC 5.5 k/uL (3.8-10.6)
[2022-04-18 23:45] LABS: ALT 20 U/L (4-34); AST 32 U/L (14-36); African American GFR (CKD) >90 (>60 ml/min/1.73 sqM); Albumin 4.1 g/dL (3.5-5.0); Alkaline Phosphatase 47 U/L (38-126); Anion Gap 7 mmol/L; Blood Urea Nitrogen 13 mg/dL (7-17); Calcium 11.1 mg/dL (8.4-10.2); Carbon Dioxide 24 mmol/L (22-30); Chloride 103 mmol/L (98-107); Glucose 275 mg/dL (74-99); Lipase 138 U/L (23-300); Non-African American GFR(CKD) >90 (>60 ml/min/1.73 sqM); Sodium 134 mmol/L (137-145); Total Bilirubin 0.6 mg/dL (0.2-1.3); Total Protein 7.4 g/dL (6.3-8.2)
--- NOTE | 2022-04-18 23:45 | ED ---
General Adult HPI - General Chief complaint: Abdominal Pain Stated complaint: Abd Pain,Vomiting Time Seen by Provider: 04/18/22 22:27 Source: patient, RN notes reviewed Mode of arrival: ambulatory Limitations: no limitations - History of Present Illness Initial comments: 31-year-old female presents to the emergency Department with complaints of left upper quadrant pain that radiates to the back. States pain is consistent in nature with pancreatitis. Reports 10 episodes of vomiting today. Did not take anything to treat her symptoms prior to arrival. No aggravating or alleviating factors. Denies fever, chills, headache, dizziness, chest pain, diarrhea, dysuria, or hematuria. - Related Data Home Medications Medication Instructions Recorded Confirmed ARIPiprazole IM SYRINGE [Abilify 400 mg IM Q30D 07/28/21 03/30/22 Maintena Syringe] Ibuprofen [Motrin] 800 mg PO Q8H PRN 11/16/21 03/30/22 Omeprazole 20 mg PO DAILY 11/16/21 03/30/22 QUEtiapine FUMARATE [SEROquel XR] 600 mg PO HS 11/16/21 03/30/22 ALPRAZolam [Xanax] 0.25 mg PO DAILY PRN 03/30/22 03/30/22 Acetaminophen [Tylenol Extra 500 mg PO Q4H PRN 03/30/22 03/30/22 Strength] Fenofibrate [Lofibra] 160 mg PO DAILY 03/30/22 03/30/22 Insulin Aspart [NovoLOG Flexpen] See Protocol SQ DIRECTED 03/30/22 03/30/22 Insulin Glargine,Hum.rec.anlog 45 units SQ DAILY 03/30/22 03/30/22 [Lantus Solostar Pen] Naproxen [Naprosyn] 500 mg PO BID 03/30/22 03/30/22 Ondansetron Odt [Zofran ODT] 4 mg SL DAILY PRN 03/30/22 03/30/22 Propranolol HCl [Inderal] 60 mg PO DAILY 03/30/22 03/30/22 metFORMIN HCL [Glucophage] 1,000 mg PO DAILY 03/30/22 03/30/22 tiZANidine [Zanaflex] 4 mg PO BID PRN 03/30/22 03/30/22 Allergies Allergy/AdvReac Type Severity Reaction Status Date / Time bee pollen Allergy Severe Anaphylaxis Verified 04/18/22 22:23 haloperidol [From Haldol] Allergy Severe QUIT Verified 04/18/22 22:23 BREATHING haloperidol lactate Allergy Severe QUIT Verified 04/18/22 22:23 [From Haldol] BREATHING latex Allergy Severe RASH-THROAT Verified 04/18/22 22:23 CLOSES [place] Allergy Anaphylaxis Verified 04/18/22 22:23 coconut Allergy Anaphylaxis Verified 04/18/22 22:23 morphine Allergy Rash/Hives Verified 04/18/22 22:23 pineapple Allergy Anaphylaxis Verified 04/18/22 22:23 prednisone Allergy THROAT Verified 04/18/22 22:23 SWELLS spider venom Allergy Swelling Verified 04/18/22 22:23 Sulfa (Sulfonamide Allergy THROAT Verified 04/18/22 22:23 Antibiotics) SWELLS venom-wasp Allergy Swelling Verified 04/18/22 22:23 venom-wasp protein Allergy Swelling Verified 04/18/22 22:23 promethazine HCl AdvReac Severe Nausea & Verified 04/18/22 22:23 [From Phenergan] Vomiting tramadol AdvReac Severe Nausea & Verified 04/18/22 22:23 Vomiting amoxicillin AdvReac Nausea & Verified 04/18/22 22:23 Vomiting ANTS AdvReac Mild Anaphylaxis Uncoded 04/18/22 22:23 Review of Systems ROS Statement: Those systems with pertinent positive or pertinent negative responses have been documented in the HPI. ROS Other: All systems not noted in ROS Statement are negative. Past Medical History Past Medical History: Asthma, Diabetes Mellitus, GERD/Reflux Additional Past Medical History / Comment(s): migraines, degenerative disk disease, endometriosis, lupus, pancreatitis, DM2- insulin History of Any Multi-Drug Resistant Organisms: None Reported Past Surgical History: Cholecystectomy, Orthopedic Surgery Additional Past Surgical History / Comment(s): laparoscopc surgery for endometriosis, cyst removed from left foot, EGD, Past Anesthesia/Blood Transfusion Reactions: Previous Problems w/ Anesthesia Additional Past Anesthesia/Blood Transfusion Reaction / Comment(s): hard to wake up for 48-72 hours after laparoscopic surgery-was in hosp. for 3 days Past Psychological History: Anxiety, Depression, PTSD Smoking Status: Vaper Past Alcohol Use History: None Reported Past Drug Use History: None Reported - Past Family History Mother Family Medical History: No Reported History Additional Family Medical History / Comment(s): hx migraines Father Family Medical History: Coronary Artery Disease (CAD), Hypertension Additional Family Medical History / Comment(s): ddd, alcoholism & drug use General Exam Limitations: no limitations General appearance: alert, in no apparent distress ENT exam: Present: normal oropharynx Respiratory exam: Present: normal lung sounds bilaterally. Absent: respiratory distress, wheezes, rales, rhonchi, stridor Cardiovascular Exam: Present: regular rate, normal rhythm, normal heart sounds. Absent: systolic murmur, diastolic murmur, rubs, gallop, clicks GI/Abdominal exam: Present: soft, tenderness (LUQ, pain along left lower rib border), normal bowel sounds. Absent: distended, guarding, rebound, rigid Back exam: Absent: CVA tenderness (R), CVA tenderness (L) Neurological exam: Present: alert, oriented X3, CN II-XII intact Psychiatric exam: Present: flat affect Course Vital Signs 04/18/22 04/19/22 22:24 01:52 Temperature 98.5 F Pulse Rate 115 H 84 Respiratory 18 15 Rate Blood Pressure 127/94 137/84 O2 Sat by Pulse 99 100 Oximetry - Reevaluation(s) Reevaluation #1: 04/18/22 23:45 Spoke with public guardian who reiterates no opiates, benadryl, or benzodiazepines. 04/19/22 00:40 Upon reassessment, patient reports only minimal improvement in pain. Rates it at 8/10. No vomiting at this time. Has received a liter of IV fluids. We will repeat dose of Toradol and discharged home to follow up with PCP. Medical Decision Making - Medical Decision Making 31-year-old female with a past medical history of pancreatitis presents to the emergency Department with complaints of left upper quadrant pain that radiates to the left back. Reports 10 episodes of vomiting. Upon exam, patient is well- appearing and in no acute distress. She is able to ambulate without difficulty. Abdomen is soft with mild tenderness upon palpation of the left lower rib border. Laboratory studies were obtained. Lipase 138. Glucose 275. Results were discussed with patient. She was given IV fluids and Toradol with some improvement. She will be discharged home to follow up with her PCP for a recheck. Return parameters discussed in detail. Patient verbalizes understanding and agrees with this plan. Attending:Jessica. Note: per guardian, no opiates or benzodiazepines. Was pt. sent in by a medical professional or institution? @ -No Did you speak to anyone other than the patient for history? @ -No Did you review nursing and triage notes? @ -Yes, agree Were old charts reviewed? @ -No Differential Diagnosis? @ -Chronic abdominal pain, pancreatitis, vomiting, viral illness, renal calculus, this is not meant to be an exhaustive list EKG interpreted by me (3pts min.)? @ -Not applicable X-rays interpreted by me (1pt min.)? @ -Not applicable CT interpreted by me (1pt min.)? @ -Not applicable U/S interpreted by me (1pt. min.)? @ -Not applicable What testing was considered but not performed? (CT, X-rays, U/S, labs)? Why? @ -None What meds were considered but not given? Why? @ -Consider Dilaudid, but was not given as patient is not to receive opiate pain medicines. Did you discuss the management of the patient with other professionals? @ -None Did you reconcile home meds? @ -No Was smoking cessation discussed for >3mins.? @ -No Was critical care preformed (if so, how long)? @ -No Were there social determinants of health that impacted care today? How? (Homelessness, low income, unemployed, alcoholism, drug addiction, transportation, low edu. Level, literacy, decrease access to med. care, care home, rehab)? @ -Low education level Was there de-escalation of care discussed even if they declined? (Discuss DNR or withdrawal of care, Hospice)? @ -No What co-morbidities impacted this encounter? (DM, HTN, Smoking, COPD, CAD, Cancer, CVA, Hep., AIDS, mental health diagnosis, sleep apnea, morbid obesity)? @ -Diabetes, obesity Was patient admitted / discharged? @ -Discharged Undiagnosed new problem with uncertain prognosis? @ -None Drug Therapy requiring intensive monitoring for toxicity (Heparin, Nitro, Insulin, Cardizem)? @ -None Were any procedures done? @ -None Diagnosis/symptom? @ -Abdominal pain Acute, or Chronic, or Acute on Chronic? @ -Chronic Uncomplicated (without systemic symptoms) or Complicated (systemic symptoms)? @ -Uncomplicated Side effects of treatment? @ -None Exacerbation, Progression, or Severe Exacerbation] @ -Exacerbation Poses a threat to life or bodily function? @ -No - Lab Data Result diagrams: 04/18/22 23:05 04/18/22 23:05 Lab Results 04/18/22 04/18/22 Range/Units 23:05 23:05 WBC 5.5 (3.8-10.6) k/uL RBC 4.34 (3.80-5.40) m/uL Hgb 12.6 (11.4-16.0) gm/dL Hct 37.3 (34.0-46.0) % MCV 86.1 (80.0-100.0) fL MCH 29.1 (25.0-35.0) pg MCHC 33.8 (31.0-37.0) g/dL RDW 14.0 (11.5-15.5) % Plt Count 278 (150-450) k/uL MPV 8.4 Neutrophils % 53 % Lymphocytes % 39 % Monocytes % 3 % Eosinophils % 3 % Basophils % 0 % Neutrophils # 2.9 (1.3-7.7) k/uL Lymphocytes # 2.1 (1.0-4.8) k/uL Monocytes # 0.2 (0-1.0) k/uL Eosinophils # 0.2 (0-0.7) k/uL Basophils # 0.0 (0-0.2) k/uL Sodium 134 L (137-145) mmol/L Potassium 4.8 (3.5-5.1) mmol/L Chloride 103 (98-107) mmol/L Carbon Dioxide 24 (22-30) mmol/L Anion Gap 7 mmol/L BUN 13 (7-17) mg/dL Creatinine 0.73 (0.52-1.04) mg/dL Est GFR (CKD-EPI)AfAm >90 (>60 ml/min/1.73 sqM) Est GFR (CKD-EPI)NonAf >90 (>60 ml/min/1.73 sqM) Glucose 275 H (74-99) mg/dL Calcium 11.1 H (8.4-10.2) mg/dL Total Bilirubin 0.6 (0.2-1.3) mg/dL AST 32 (14-36) U/L ALT 20 (4-34) U/L Alkaline Phosphatase 47 (38-126) U/L Total Protein 7.4 (6.3-8.2) g/dL Albumin 4.1 (3.5-5.0) g/dL Lipase 138 (23-300) U/L Disposition Clinical Impression: Chronic abdominal pain Disposition: HOME SELF-CARE Condition: Stable Instructions (If sedation given, give patient instructions): Abdominal Pain (ED) Additional Instructions: Continue home medications as prescribed. Follow-up with your PCP for a recheck. Emergency department with any new, worsening, or concerning symptoms. Is patient prescribed a controlled substance at d/c from ED?: No Referrals: Isi Carolina MD [Primary Care Provider] - 1-2 days Time of Disposition: 01:17
[2022-04-19] LABS: Potassium 4.8 mmol/L (3.5-5.1)
[2022-04-19] MEDS ORDERED: KETOROLAC 15 MG/ML 1 ML VIAL IVP STA (00:46)
[2022-04-19 01:52] VITALS: BP 137/84; PULSE 84; RESP 15
== END 2022-04-19 01:54 | disposition home or self-care (01) ==
LOC: EC 22:15
DX: R10.12 Left upper quadrant pain (principal); E11.9 Type 2 diabetes mellitus without complications; F32.A Depression, unspecified; F41.9 Anxiety disorder, unspecified; J45.909 Unspecified asthma, uncomplicated; K21.9 Gastro-esophageal reflux disease without esophagitis; Z79.4 Long term (current) use of insulin; Z79.84 Long term (current) use of oral hypoglycemic drugs; Z79.899 Other long term (current) drug therapy; Z88.0 Allergy status to penicillin; Z88.1 Allergy status to other antibiotic agents; Z88.2 Allergy status to sulfonamides; Z88.5 Allergy status to narcotic agent; Z88.8 Allergy status to other drugs, medicaments and biological substances; Z91.030 Bee allergy status; Z91.040 Latex allergy status
CPT/HCPCS: 36415; 80053; 83690; 85025; 99284; 96374; 96375; 96376; 96361; J2405; J1885 ×2

== ENCOUNTER 2022-04-23 22:26 | Emergency (ER) | payer BC, OTHER ==
[2022-04-23 22:32] VITALS: TEMP 96.5
[2022-04-23] MEDS ORDERED: ONDANSETRON 4 MG/2 ML VIAL IVP STA (22:51)
[2022-04-23] MEDS ORDERED: SODIUM CHLORIDE 0.9% 1,000 ML IV STA (22:51)
[2022-04-23] MEDS ORDERED: KETOROLAC 15 MG/ML 1 ML VIAL IVP STA (22:56)
[2022-04-23 23:01] VITALS: BP 129/94; PULSE 137; RESP 18
--- NOTE | 2022-04-23 23:21 | XR ---
EXAMINATION TYPE: XR KUB portable DATE OF EXAM: 04/23/2022 COMPARISON: 04/06/2022 HISTORY: Abdominal pain TECHNIQUE: 2 views upright FINDINGS: There is no sign of intestinal obstruction or pneumoperitoneum. Fecal pattern is normal. Smooth wel gas pattern is normal. No pathologic calcifications over the kidneys. There are clips from cholec ystectomy. Lung bases are clear. IMPRESSION: Nonacute abdomen. No adverse change.
[2022-04-23] MEDS ORDERED: ONDANSETRON 4 MG/2 ML VIAL IM STA (23:30)
[2022-04-23] MEDS ORDERED: KETOROLAC 15 MG/ML 1 ML VIAL IM STA (23:30)
[2022-04-24 00:41] LABS: Amorphous Sediment,Urine Rare /hpf; Appearance,Urine Clear (Clear); Bilirubin,Urine Negative (Negative); Blood,Urine Negative (Negative); Budding Yeast,Urine Rare /hpf; Color,Urine Light Yellow; Glucose,Urine (UA) 4+ (Negative); Ketones,Urine Negative (Negative); Leukocyte Esterase,Urine Trace (Negative); Mucus,Urine Rare /hpf; Nitrite,Urine Negative (Negative); PH, Urine 7.5 (5.0-8.0); Protein,Urine Negative (Negative); RBC,Urine 1 /hpf (0-5); Specific Gravity,Urine 1.029 (1.001-1.035); Squamous Epithelial Cell,Urine 5 /hpf (0-4); Urobilinogen,Urine <2.0 mg/dL (<2.0); WBC,Urine 6 /hpf (0-5)
--- NOTE | 2022-04-24 01:04 | ED ---
Abdominal Pain HPI - General Chief Complaint: Abdominal Pain Stated Complaint: Abd Pain, Diarrhea Time Seen by Provider: 04/23/22 22:36 Source: patient Mode of arrival: ambulatory Limitations: no limitations - History of Present Illness Initial Comments: Patient is a 31-year-old female well known to our ER presenting with chief complaint of abdominal pain. Abdominal pain is on the left side of the abdomen and shoots into the back. Mainly in the left upper abdomen. She admits to nausea and diarrhea. No vomiting. Symptoms have been ongoing for the last 2 days. Patient has history of chronic opioid dependence, her guardian has requested that the patient does not receive narcotics. Pain feels similar to when she has had pancreatitis and kidney stones. No chest pain, difficulty breathing, fever, chills, hematochezia, melena, dysuria, hematuria. - Related Data Home Medications Medication Instructions Recorded Confirmed ARIPiprazole IM SYRINGE [Abilify 400 mg IM Q30D 07/28/21 03/30/22 Maintena Syringe] Ibuprofen [Motrin] 800 mg PO Q8H PRN 11/16/21 03/30/22 Omeprazole 20 mg PO DAILY 11/16/21 03/30/22 QUEtiapine FUMARATE [SEROquel XR] 600 mg PO HS 11/16/21 03/30/22 ALPRAZolam [Xanax] 0.25 mg PO DAILY PRN 03/30/22 03/30/22 Acetaminophen [Tylenol Extra 500 mg PO Q4H PRN 03/30/22 03/30/22 Strength] Fenofibrate [Lofibra] 160 mg PO DAILY 03/30/22 03/30/22 Insulin Aspart [NovoLOG Flexpen] See Protocol SQ DIRECTED 03/30/22 03/30/22 Insulin Glargine,Hum.rec.anlog 45 units SQ DAILY 03/30/22 03/30/22 [Lantus Solostar Pen] Naproxen [Naprosyn] 500 mg PO BID 03/30/22 03/30/22 Ondansetron Odt [Zofran ODT] 4 mg SL DAILY PRN 03/30/22 03/30/22 Propranolol HCl [Inderal] 60 mg PO DAILY 03/30/22 03/30/22 metFORMIN HCL [Glucophage] 1,000 mg PO DAILY 03/30/22 03/30/22 tiZANidine [Zanaflex] 4 mg PO BID PRN 03/30/22 03/30/22 Allergies Allergy/AdvReac Type Severity Reaction Status Date / Time bee pollen Allergy Severe Anaphylaxis Verified 04/23/22 22:32 haloperidol [From Haldol] Allergy Severe QUIT Verified 04/23/22 22:32 BREATHING haloperidol lactate Allergy Severe QUIT Verified 04/23/22 22:32 [From Haldol] BREATHING latex Allergy Severe RASH-THROAT Verified 04/23/22 22:32 CLOSES [place] Allergy Anaphylaxis Verified 04/23/22 22:32 coconut Allergy Anaphylaxis Verified 04/23/22 22:32 morphine Allergy Rash/Hives Verified 04/23/22 22:32 pineapple Allergy Anaphylaxis Verified 04/23/22 22:32 prednisone Allergy THROAT Verified 04/23/22 22:32 SWELLS spider venom Allergy Swelling Verified 04/23/22 22:32 Sulfa (Sulfonamide Allergy THROAT Verified 04/23/22 22:32 Antibiotics) SWELLS venom-wasp Allergy Swelling Verified 04/23/22 22:32 venom-wasp protein Allergy Swelling Verified 04/23/22 22:32 promethazine HCl AdvReac Severe Nausea & Verified 04/23/22 22:32 [From Phenergan] Vomiting tramadol AdvReac Severe Nausea & Verified 04/23/22 22:32 Vomiting amoxicillin AdvReac Nausea & Verified 04/23/22 22:32 Vomiting ANTS AdvReac Mild Anaphylaxis Uncoded 04/23/22 22:32 Review of Systems ROS Statement: Those systems with pertinent positive or pertinent negative responses have been documented in the HPI. ROS Other: All systems not noted in ROS Statement are negative. Past Medical History Past Medical History: Asthma, Diabetes Mellitus, GERD/Reflux Additional Past Medical History / Comment(s): migraines, degenerative disk disease, endometriosis, lupus, pancreatitis, DM2- insulin History of Any Multi-Drug Resistant Organisms: None Reported Past Surgical History: Cholecystectomy, Orthopedic Surgery Additional Past Surgical History / Comment(s): laparoscopc surgery for endometriosis, cyst removed from left foot, EGD, Past Anesthesia/Blood Transfusion Reactions: Previous Problems w/ Anesthesia Additional Past Anesthesia/Blood Transfusion Reaction / Comment(s): hard to wake up for 48-72 hours after laparoscopic surgery-was in hosp. for 3 days Past Psychological History: Anxiety, Depression, PTSD Smoking Status: Vaper Past Alcohol Use History: None Reported Past Drug Use History: None Reported - Past Family History Mother Family Medical History: No Reported History Additional Family Medical History / Comment(s): hx migraines Father Family Medical History: Coronary Artery Disease (CAD), Hypertension Additional Family Medical History / Comment(s): ddd, alcoholism & drug use General Exam Limitations: no limitations General appearance: alert, in no apparent distress Head exam: Present: atraumatic, normocephalic, normal inspection Eye exam: Present: normal appearance Neck exam: Present: normal inspection Respiratory exam: Present: normal lung sounds bilaterally. Absent: respiratory distress, wheezes, rales, rhonchi, stridor Cardiovascular Exam: Present: normal rhythm, tachycardia, normal heart sounds. Absent: systolic murmur, diastolic murmur, rubs, gallop, clicks GI/Abdominal exam: Present: soft, tenderness (Left upper quadrant). Absent: distended, guarding, rebound, rigid Neurological exam: Present: alert, oriented X3, CN II-XII intact Psychiatric exam: Present: normal affect, normal mood Skin exam: Present: warm, dry, intact, normal color. Absent: rash Course Vital Signs 04/23/22 04/23/22 22:28 23:00 Temperature 96.5 F L Pulse Rate 150 H 137 H Respiratory 20 18 Rate Blood Pressure 134/100 129/94 O2 Sat by Pulse 97 97 Oximetry Medical Decision Making - Medical Decision Making Was pt. sent in by a medical professional or institution (, PA, CARGO SERVICE SUPERVISOR, urgent care, hospital, or snf...) When possible be specific @ -[No] Did you speak to anyone other than the patient for history (EMS, parent, family, police, friend...)? What history was obtained from this source @ -[No] Did you review nursing and triage notes (agree or disagree)? Why? @ -[I reviewed and agree with nursing and triage notes] Were old charts reviewed (outside hosp., previous admission, EMS record, old EKG, old radiological studies, urgent care reports/EKG's, snf records)? Report findings @ -Previous visits were reviewed Differential Diagnosis (chest pain, altered mental status, abdominal pain women, abdominal pain men, vaginal bleeding, weakness, fever, dyspnea, syncope, headache, dizziness, GI bleed, back pain, seizure, CVA, palpatations, mental health)? @ -MDM Differential Abdominal Pain Women: Appendicitis, Cholecystitis, diverticulosis, ischemic bowel, pancreatitis, hepatitis, UTI, gastroenteritis, AAA, incarcerated hernia, bowel obstruction, constipation, inflammatory bowel, hepatitis, peptic ulcer disease, splenic infar ction, perforated viscus, vulvitis, ovarian torsion, PID, kidney stone, placenta abruption... This is not meant to be an all-inclusive list EKG interpreted by me (3pts min.). @ -Sinus tachycardia. Ventricular rate 148. GA interval 125. QRS 70. QT to 98. QTc 383. EKG interpreted by myself as well as my attending X-rays interpreted by me (1pt min.). @ -KUB x-ray shows nonacute abdomen CT interpreted by me (1pt min.). @ -[None done] U/S interpreted by me (1pt. min.). @ -[None done] What testing was considered but not performed or refused? (CT, X-rays, U/S, labs)? Why? @ -CT of the abdomen was considered, patient left before completion of treatment. CBC, CMP, amylase, lipase were considered, patient left before completion of treatment. What meds were considered but not given or refused? Why? @ -[None] Did you discuss the management of the patient with other professionals (professionals i.e. , PA, CARGO SERVICE SUPERVISOR, lab, RT, psych nurse, dialysis social worker, ornamental metal worker apprentice, teacher, department of natural resources officer, rn case manager)? Give summary @ -[No] Was smoking cessation discussed for >3mins.? @ -[No] Was critical care preformed (if so, how long)? @ -[No] Were there social determinants of health that impacted care today? How? (Homelessness, low income, unemployed, alcoholism, drug addiction, transportation, low edu. Level, literacy, decrease access to med. care, correction, rehab)? @ -Opioid dependency Was there de-escalation of care discussed even if they declined (Discuss DNR or withdrawal of care, Hospice)? DNR status @ -[No] What co-morbidities impacted this encounter? (DM, HTN, Smoking, COPD, CAD, Cancer, CVA, ARF, Chemo, Hep., AIDS, mental health diagnosis, sleep apnea, morbid obesity)? @ -[None] Was patient admitted / discharged? Hospital course, mention meds given and route, prescriptions, significant lab abnormalities, going to OR and other pertinent info. @ -Patient is a 31-year-old female well known to our ER presenting with chief complaint of left upper quadrant pain for the last 2 days. On physical examination there are some left upper quadrant pain on palpation. Patient is tachycardic likely secondary to pain. Patient's guardian has requested that she does not receive any narcotics. Patient was given Zofran and Toradol. KUB x- ray shows nonacute abdomen. Urine shows no signs of UTI. HCG is negative. An reassessment patient reports some improvement in her pain. I expressed to the patient that we will not be giving narcotics at this visit. I was told by nursing staff that patient left prior to completion of evaluation and treatment. She should follow-up with her PCP and report back to ER with any new or worsening symptoms. Case discussed with my attending Dr. Turner Undiagnosed new problem with uncertain prognosis? @ -[No] Drug Therapy requiring intensive monitoring for toxicity (Heparin, Nitro, Insulin, Cardizem)? @ -[No] Were any procedures done? @ -[No] Diagnosis/symptom? @ -Abdominal pain Acute, or Chronic, or Acute on Chronic? @ -Acute on chronic Uncomplicated (without systemic symptoms) or Complicated (systemic symptoms)? @ -Uncomplicated Side effects of treatment? @ -[No] Exacerbation, Progression, or Severe Exacerbation? @ -[No] Poses a threat to life or bodily function? How? (Chest pain, [place], [place], pneumonia, PE, COPD, DKA, ARF, appy, cholecystitis, CVA, Diverticulitis, Homicidal, Suicidal, threat to staff... and all critical care pts) @ -[No] - Lab Data Lab Results 04/24/22 04/24/22 Range/Units 00:07 00:07 Urine Color Light Yellow Urine Appearance Clear (Clear) Urine pH 7.5 (5.0-8.0) Ur Specific [place] 1.029 (1.001-1.035) Urine Protein Negative (Negative) Urine Glucose (UA) 4+ H (Negative) Urine Ketones Negative (Negative) Urine Blood Negative (Negative) Urine Nitrite Negative (Negative) Urine Bilirubin Negative (Negative) Urine Urobilinogen <2.0 (<2.0) mg/dL Ur Leukocyte Esterase Trace H (Negative) Urine RBC 1 (0-5) /hpf Urine WBC 6 H (0-5) /hpf Ur Squamous Epith Cells 5 H (0-4) /hpf Amorphous Sediment Rare H (None) /hpf Urine Mucus Rare H (None) /hpf Urine Yeast (Budding) Rare H (None) /hpf Urine HCG, Qual Not Detected (Not Detectd) Disposition Clinical Impression: Abdominal pain Narrative: left without discharge Disposition: Left Against Medical Advice Condition: Fair Instructions (If sedation given, give patient instructions): Abdominal Pain (ED) Additional Instructions: Follow-up with PCP. Report back to ER with any new or worsening symptoms. Is patient prescribed a controlled substance at d/c from ED?: No Referrals: Isi Carolina MD [Primary Care Provider] - 1-2 days Time of Disposition: 01:04
== END 2022-04-24 01:07 | disposition left against medical advice (07) ==
LOC: EC 22:26
DX: R10.12 Left upper quadrant pain (principal); E11.9 Type 2 diabetes mellitus without complications; J45.909 Unspecified asthma, uncomplicated; K21.9 Gastro-esophageal reflux disease without esophagitis; F32.A Depression, unspecified; F41.9 Anxiety disorder, unspecified; Z79.899 Other long term (current) drug therapy; Z79.4 Long term (current) use of insulin; Z79.84 Long term (current) use of oral hypoglycemic drugs; Z88.1 Allergy status to other antibiotic agents; Z88.0 Allergy status to penicillin; Z88.2 Allergy status to sulfonamides; Z88.5 Allergy status to narcotic agent; Z88.8 Allergy status to other drugs, medicaments and biological substances; Z91.030 Bee allergy status; Z91.040 Latex allergy status; Z53.29 Procedure and treatment not carried out because of patient's decision for other reasons
CPT/HCPCS: 81001; 81025; 74018; 99284; 96372 ×2; J2405; J1885

== ENCOUNTER 2022-04-29 00:15 | Emergency (ER) | payer BC, OTHER ==
[2022-04-29 00:30] VITALS: TEMP 99
[2022-04-29] MEDS ORDERED: KETOROLAC 15 MG/ML 1 ML VIAL IM STA (00:36)
[2022-04-29] MEDS ORDERED: diphenhydrAMINE 50 MG/ML 1 ML VIAL IM STA (00:36)
[2022-04-29] MEDS ORDERED: METOCLOPRAMIDE 5 MG/ML 2 ML VIAL IM PRN (00:36)
--- NOTE | 2022-04-29 01:34 | ED ---
Recheck HPI - General Chief Complaint: Recheck/Abnormal Lab/Rx Stated Complaint: Abd Pain Time Seen by Provider: 04/29/22 00:36 Source: patient Mode of arrival: ambulatory - History of Present Illness Initial Comments: Patient is a 31-year-old female well known to our ER presenting with chief complaint of migraine. Patient states the migraine has been present for a few days. Patient has history of migraines. She took Tylenol and naproxen at home. Per patient's guardian she is not to have narcotics. She is also complaining of some abdominal pain. Patient has history of chronic abdominal pain. She admits to nausea with no vomiting. She states that she has had a low-grade fever of 99. Admits to mild cough, no congestion or sore throat. No chest pain or difficulty breathing. No hematochezia, melena, dysuria, hematuria. - Related Data Home Medications Medication Instructions Recorded Confirmed ARIPiprazole IM SYRINGE [Abilify 400 mg IM Q30D 07/28/21 03/30/22 Maintena Syringe] Ibuprofen [Motrin] 800 mg PO Q8H PRN 11/16/21 03/30/22 Omeprazole 20 mg PO DAILY 11/16/21 03/30/22 QUEtiapine FUMARATE [SEROquel XR] 600 mg PO HS 11/16/21 03/30/22 ALPRAZolam [Xanax] 0.25 mg PO DAILY PRN 03/30/22 03/30/22 Acetaminophen [Tylenol Extra 500 mg PO Q4H PRN 03/30/22 03/30/22 Strength] Fenofibrate [Lofibra] 160 mg PO DAILY 03/30/22 03/30/22 Insulin Aspart [NovoLOG Flexpen] See Protocol SQ DIRECTED 03/30/22 03/30/22 Insulin Glargine,Hum.rec.anlog 45 units SQ DAILY 03/30/22 03/30/22 [Lantus Solostar Pen] Naproxen [Naprosyn] 500 mg PO BID 03/30/22 03/30/22 Ondansetron Odt [Zofran ODT] 4 mg SL DAILY PRN 03/30/22 03/30/22 Propranolol HCl [Inderal] 60 mg PO DAILY 03/30/22 03/30/22 metFORMIN HCL [Glucophage] 1,000 mg PO DAILY 03/30/22 03/30/22 tiZANidine [Zanaflex] 4 mg PO BID PRN 03/30/22 03/30/22 Allergies Allergy/AdvReac Type Severity Reaction Status Date / Time bee pollen Allergy Severe Anaphylaxis Verified 04/29/22 00:30 haloperidol [From Haldol] Allergy Severe QUIT Verified 04/29/22 00:30 BREATHING haloperidol lactate Allergy Severe QUIT Verified 04/29/22 00:30 [From Haldol] BREATHING latex Allergy Severe RASH-THROAT Verified 04/29/22 00:30 CLOSES [place] Allergy Anaphylaxis Verified 04/29/22 00:30 coconut Allergy Anaphylaxis Verified 04/29/22 00:30 morphine Allergy Rash/Hives Verified 04/29/22 00:30 pineapple Allergy Anaphylaxis Verified 04/29/22 00:30 prednisone Allergy THROAT Verified 04/29/22 00:30 SWELLS spider venom Allergy Swelling Verified 04/29/22 00:30 Sulfa (Sulfonamide Allergy THROAT Verified 04/29/22 00:30 Antibiotics) SWELLS venom-wasp Allergy Swelling Verified 04/29/22 00:30 venom-wasp protein Allergy Swelling Verified 04/29/22 00:30 promethazine HCl AdvReac Severe Nausea & Verified 04/29/22 00:30 [From Phenergan] Vomiting tramadol AdvReac Severe Nausea & Verified 04/29/22 00:30 Vomiting amoxicillin AdvReac Nausea & Verified 04/29/22 00:30 Vomiting ANTS AdvReac Mild Anaphylaxis Uncoded 04/29/22 00:30 Review of Systems ROS Statement: Those systems with pertinent positive or pertinent negative responses have been documented in the HPI. ROS Other: All systems not noted in ROS Statement are negative. Past Medical History Past Medical History: Asthma, Diabetes Mellitus, GERD/Reflux Additional Past Medical History / Comment(s): migraines, degenerative disk disease, endometriosis, lupus, pancreatitis, DM2- insulin History of Any Multi-Drug Resistant Organisms: None Reported Past Surgical History: Cholecystectomy, Orthopedic Surgery Additional Past Surgical History / Comment(s): laparoscopc surgery for endometriosis, cyst removed from left foot, EGD, Past Anesthesia/Blood Transfusion Reactions: Previous Problems w/ Anesthesia Additional Past Anesthesia/Blood Transfusion Reaction / Comment(s): hard to wake up for 48-72 hours after laparoscopic surgery-was in hosp. for 3 days Past Psychological History: Anxiety, Depression, PTSD Smoking Status: Vaper Past Alcohol Use History: None Reported Past Drug Use History: None Reported - Past Family History Mother Family Medical History: No Reported History Additional Family Medical History / Comment(s): hx migraines Father Family Medical History: Coronary Artery Disease (CAD), Hypertension Additional Family Medical History / Comment(s): ddd, alcoholism & drug use General Exam Limitations: no limitations General appearance: alert, in no apparent distress Head exam: Present: atraumatic, normocephalic, normal inspection Eye exam: Present: normal appearance, PERRL, EOMI. Absent: scleral icterus, conjunctival injection, periorbital swelling Neck exam: Present: normal inspection, full ROM Respiratory exam: Present: normal lung sounds bilaterally. Absent: respiratory distress, wheezes, rales, rhonchi, stridor Cardiovascular Exam: Present: regular rate, normal rhythm, normal heart sounds. Absent: systolic murmur, diastolic murmur, rubs, gallop, clicks GI/Abdominal exam: Present: soft, tenderness (L sided). Absent: distended, guarding, rebound, rigid Neurological exam: Present: alert, oriented X3, CN II-XII intact Expanded Patient oriented to: Present: person, place, time Speech: Present: fluid speech Eye Response: (4) open spontaneously Motor Response: (6) obeys commands Verbal Response: (5) oriented [place] Total: 15 Psychiatric exam: Present: normal affect, normal mood Skin exam: Present: warm, dry, intact, normal color. Absent: rash Course Vital Signs 04/29/22 00:27 Temperature 99 F Pulse Rate 105 H Respiratory 18 Rate Blood Pressure 122/82 O2 Sat by Pulse 97 Oximetry Medical Decision Making - Medical Decision Making Was pt. sent in by a medical professional or institution (, PA, FAST FOOD WORKER, urgent care, hospital, or [place] facility...) When possible be specific @ -No Did you speak to anyone other than the patient for history (EMS, parent, family, police, friend...)? What history was obtained from this source @ -No Did you review nursing and triage notes (agree or disagree)? Why? @ -I reviewed and agree with nursing and triage notes Were old charts reviewed (outside hosp., previous admission, EMS record, old EKG, old radiological studies, urgent care reports/EKG's, [place] health [place] records)? Report findings @ -Previous visits reviewed Differential Diagnosis (chest pain, altered mental status, abdominal pain women, abdominal pain men, vaginal bleeding, weakness, fever, dyspnea, syncope, headache, dizziness, GI bleed, back pain, seizure, CVA, palpatations, mental health)? @ -[facility] Differential Headache: Migraine, tension, cluster, carbon monoxide, central venous thrombosis, pension karma temporal arteritis, acute closure glaucoma, intercranial hemorrhage, mastoiditis, sinusitis, head injury this is not meant to be an all-inclusive list. EKG interpreted by me (3pts min.). @ -As above X-rays interpreted by me (1pt min.). @ -KUB x-ray and chest x-ray show no acute process CT interpreted by me (1pt min.). @ -None done U/S interpreted by me (1pt. min.). @ -None done What testing was considered but not performed or refused? (CT, X-rays, U/S, labs)? Why? @ -None What meds were considered but not given or refused? Why? @ -None Did you discuss the management of the patient with other professionals (professionals i.e. , PA, FAST FOOD WORKER, lab, RT, psych nurse, social sciences chair, volunteer specialist, teacher, assault amphibious vehicle officer, case making machine operator)? Give summary @ -No Was smoking cessation discussed for >3mins.? @ -No Was critical care preformed (if so, how long)? @ -No Were there social determinants of health that impacted care today? How? (Homelessness, low income, unemployed, alcoholism, drug addiction, transportation, low edu. Level, literacy, decrease access to med. care, nursing home, rehab)? @ -No Was there de-escalation of care discussed even if they declined (Discuss DNR or withdrawal of care, Hospice)? DNR status @ -No What co-morbidities impacted this encounter? (DM, HTN, Smoking, COPD, CAD, Cancer, CVA, ARF, Chemo, Hep., AIDS, mental health diagnosis, sleep apnea, morbid obesity)? @ -None Was patient admitted / discharged? Hospital course, mention meds given and route, prescriptions, significant lab abnormalities, going to OR and other pertinent info. @ -Patient is a 31-year-old female well known to our ER presenting with chief complaint of headache and abdominal pain. Patient has history of chronic migraines, this headache feels consistent with those episodes. Patient also has history of chronic abdominal pain, she states that this pain is consistent with previous episodes of pain. Physical examination is unremarkable. Patient is negative for influenza, RSV, Covid. KUB and chest x-ray are negative. Patient is not to receive any narcotics per her guardian. Patient was given Reglan, Benadryl, and Toradol. On reassessment she reports some improvement in symptoms. She'll be discharged home and instructed to follow-up with her PCP and specialists. Follow-up with PCP. Report back to ER with any new or worsening symptoms. Discussed return parameters and answered all questions. Patient conveyed verbal understanding and agreed to the plan. I discussed this case in detail with my attending Dr. Rojas Undiagnosed new problem with uncertain prognosis? @ -No Drug Therapy requiring intensive monitoring for toxicity (Heparin, Nitro, Insulin, Cardizem)? @ -No Were any procedures done? @ -No Diagnosis/symptom? @ -Chronic pain Acute, or Chronic, or Acute on Chronic? @ -Acute on chronic Uncomplicated (without systemic symptoms) or Complicated (systemic symptoms)? @ -Uncomplicated Side effects of treatment? @ -No Exacerbation, Progression, or Severe Exacerbation? @ -No Poses a threat to life or bodily function? How? (Chest pain, USA, MA, pneumonia, PE, COPD, DKA, ARF, appy, cholecystitis, CVA, Diverticulitis, Homicidal, Suicida l, threat to staff... and all critical care pts) @ -No - Lab Data Lab Results 04/29/22 Range/Units 01:27 Influenza Type A (PCR) Not Detected (Not Detectd) Influenza Type B (PCR) Not Detected (Not Detectd) RSV (PCR) Not Detected (Not Detectd) SARS-CoV-2 (PCR) Not Detected (Not Detectd) Disposition Clinical Impression: Chronic pain, Chronic headache, Chronic abdominal pain Disposition: HOME SELF-CARE Condition: Good Instructions (If sedation given, give patient instructions): Chronic Pain (ED) Additional Instructions: Follow-up with PCP. Report back to ER with any new or worsening symptoms. Is patient prescribed a controlled substance at d/c from ED?: No Referrals: Isi Carolina MD [Primary Care Provider] - 1-2 days Time of Disposition: 03:23
--- NOTE | 2022-04-29 02:29 | XR ---
EXAMINATION TYPE: XR chest 2V DATE OF EXAM: 04/29/2022 COMPARISON: 04/06/2022 HISTORY: Cough TECHNIQUE: 2 view FINDINGS: Heart is normal. Lungs are clear. Diaphragm is normal. Bony thorax is normal IMPRESSION: Normal chest. No change.
--- NOTE | 2022-04-29 02:34 | XR ---
EXAMINATION TYPE: XR KUB DATE OF EXAM: 04/29/2022 COMPARISON: 04/23/2022 HISTORY: Pain TECHNIQUE: 2 views FINDINGS: There is no sign of intestinal obstruction or pneumoperitoneum. Fecal pattern is normal. Th ere are clips from cholecystectomy. Lung bases are clear. IMPRESSION: Nonacute abdomen. No adverse change
[2022-04-29] MEDS ORDERED: ONDANSETRON ODT 4 MG TAB PO STA (02:36)
[2022-04-29] MEDS ORDERED: MAG HYDROX/AL HYDROX/SIMETH 30 ML, HYOSCYAMINE ELIXIR 10 ML, LIDOCAINE VISCOUS 2% 10 ML PO STA ×3 (02:41)
[2022-04-29 04:14] VITALS: BP 124/78; PULSE 90; RESP 16
== END 2022-04-29 03:30 | disposition home or self-care (01) ==
LOC: EC 00:15
DX: G89.29 Other chronic pain (principal); R51.9 Headache, unspecified; R10.9 Unspecified abdominal pain; E11.9 Type 2 diabetes mellitus without complications; J45.909 Unspecified asthma, uncomplicated; K21.9 Gastro-esophageal reflux disease without esophagitis; F41.9 Anxiety disorder, unspecified; F32.A Depression, unspecified; F17.290 Nicotine dependence, other tobacco product, uncomplicated; Z79.4 Long term (current) use of insulin; Z79.84 Long term (current) use of oral hypoglycemic drugs; Z79.899 Other long term (current) drug therapy; Z91.040 Latex allergy status; Z91.030 Bee allergy status; Z88.8 Allergy status to other drugs, medicaments and biological substances; Z88.2 Allergy status to sulfonamides; Z88.5 Allergy status to narcotic agent; Z88.1 Allergy status to other antibiotic agents; Z88.0 Allergy status to penicillin; Z20.822 Contact with and (suspected) exposure to COVID-19
CPT/HCPCS: 87636; 71046; 74018; 99284; 96372 ×3; J1200; J2765; J1885

== ENCOUNTER 2022-04-30 21:44 | Emergency (ER) | payer BC, OTHER ==
[2022-04-30 21:52] VITALS: TEMP 98.4
[2022-04-30] MEDS ORDERED: METOCLOPRAMIDE 5 MG/ML 2 ML VIAL IVP STA (22:04)
[2022-04-30] MEDS ORDERED: KETOROLAC 15 MG/ML 1 ML VIAL IVP STA (22:04)
[2022-04-30] MEDS ORDERED: SODIUM CHLORIDE 0.9% 1,000 ML IV ONE (22:04)
[2022-04-30] MEDS ORDERED: diphenhydrAMINE 50 MG/ML 1 ML VIAL IVP STA (22:05)
--- NOTE | 2022-04-30 22:09 | ED ---
General Adult HPI - General Source: patient, RN notes reviewed Mode of arrival: ambulatory Limitations: no limitations <Violetta Ramírez - Last Filed: 04/30/22 23:14> <Martinez Olmos - Last Filed: 05/01/22 02:29> - General Chief complaint: Abdominal Pain Stated complaint: Abd Pain Time Seen by Provider: 04/30/22 21:55 - History of Present Illness Initial comments: 31-year-old female presents to the emergency department with a chief complaint of chronic abdominal pain. She describes the pain as localized to the left lower quadrant and describes the pain sharp pain that occurs at rest. She has tried tylenol for the pain without relief. She was seen at [facility] this morning for the same, she reports they did not give her anything for the pain so she came here. She denies fever, chills, chest pain, palpitations, shortness of breath, nausea, vomiting, diarrhea, melena, hematoc hezia, dysuria, flank pain, hematuria. (Violetta Ramírez) - Related Data Home Medications Medication Instructions Recorded Confirmed ARIPiprazole IM SYRINGE [Abilify 400 mg IM Q30D 07/28/21 03/30/22 Maintena Syringe] Ibuprofen [Motrin] 800 mg PO Q8H PRN 11/16/21 03/30/22 Omeprazole 20 mg PO DAILY 11/16/21 03/30/22 QUEtiapine FUMARATE [SEROquel XR] 600 mg PO HS 11/16/21 03/30/22 ALPRAZolam [Xanax] 0.25 mg PO DAILY PRN 03/30/22 03/30/22 Acetaminophen [Tylenol Extra 500 mg PO Q4H PRN 03/30/22 03/30/22 Strength] Fenofibrate [Lofibra] 160 mg PO DAILY 03/30/22 03/30/22 Insulin Aspart [NovoLOG Flexpen] See Protocol SQ DIRECTED 03/30/22 03/30/22 Insulin Glargine,Hum.rec.anlog 45 units SQ DAILY 03/30/22 03/30/22 [Lantus Solostar Pen] Naproxen [Naprosyn] 500 mg PO BID 03/30/22 03/30/22 Ondansetron Odt [Zofran ODT] 4 mg SL DAILY PRN 03/30/22 03/30/22 Propranolol HCl [Inderal] 60 mg PO DAILY 03/30/22 03/30/22 metFORMIN HCL [Glucophage] 1,000 mg PO DAILY 03/30/22 03/30/22 tiZANidine [Zanaflex] 4 mg PO BID PRN 03/30/22 03/30/22 Allergies Allergy/AdvReac Type Severity Reaction Status Date / Time bee pollen Allergy Severe Anaphylaxis Verified 04/29/22 00:30 haloperidol [From Haldol] Allergy Severe QUIT Verified 04/29/22 00:30 BREATHING haloperidol lactate Allergy Severe QUIT Verified 04/29/22 00:30 [From Haldol] BREATHING latex Allergy Severe RASH-THROAT Verified 04/29/22 00:30 CLOSES [place] Allergy Anaphylaxis Verified 04/29/22 00:30 coconut Allergy Anaphylaxis Verified 04/29/22 00:30 morphine Allergy Rash/Hives Verified 04/29/22 00:30 pineapple Allergy Anaphylaxis Verified 04/29/22 00:30 prednisone Allergy THROAT Verified 04/29/22 00:30 SWELLS spider venom Allergy Swelling Verified 04/29/22 00:30 Sulfa (Sulfonamide Allergy THROAT Verified 04/29/22 00:30 Antibiotics) SWELLS venom-wasp Allergy Swelling Verified 04/29/22 00:30 venom-wasp protein Allergy Swelling Verified 04/29/22 00:30 promethazine HCl AdvReac Severe Nausea & Verified 04/29/22 00:30 [From Phenergan] Vomiting tramadol AdvReac Severe Nausea & Verified 04/29/22 00:30 Vomiting amoxicillin AdvReac Nausea & Verified 04/29/22 00:30 Vomiting ANTS AdvReac Mild Anaphylaxis Uncoded 04/29/22 00:30 Review of Systems ROS Other: All systems not noted in ROS Statement are negative. <Violetta Ramírez - Last Filed: 04/30/22 23:14> ROS Other: All systems not noted in ROS Statement are negative. <Martinez Olmos - Last Filed: 05/01/22 02:29> ROS Statement: Those systems with pertinent positive or pertinent negative responses have been documented in the HPI. Past Medical History Past Medical History: Asthma, Diabetes Mellitus, GERD/Reflux Additional Past Medical History / Comment(s): migraines, degenerative disk disease, endometriosis, lupus, pancreatitis, DM2- insulin History of Any Multi-Drug Resistant Organisms: None Reported Past Surgical History: Cholecystectomy, Orthopedic Surgery Additional Past Surgical History / Comment(s): laparoscopc surgery for endometriosis, cyst removed from left foot, EGD, Past Anesthesia/Blood Transfusion Reactions: Previous Problems w/ Anesthesia Additional Past Anesthesia/Blood Transfusion Reaction / Comment(s): hard to wake up for 48-72 hours after laparoscopic surgery-was in hosp. for 3 days Past Psychological History: Anxiety, Depression, PTSD Smoking Status: Vaper Past Alcohol Use History: None Reported Past Drug Use History: None Reported - Past Family History Mother Family Medical History: No Reported History Additional Family Medical History / Comment(s): hx migraines Father Family Medical History: Coronary Artery Disease (CAD), Hypertension Additional Family Medical History / Comment(s): ddd, alcoholism & drug use <Violetta Ramírez - Last Filed: 04/30/22 23:14> General Exam Limitations: no limitations General appearance: alert, in no apparent distress Head exam: Present: atraumatic, normocephalic, normal inspection Eye exam: Present: normal appearance, PERRL, EOMI. Absent: scleral icterus, conjunctival injection, periorbital swelling ENT exam: Present: normal exam, mucous membranes moist Neck exam: Present: normal inspection. Absent: tenderness, meningismus, lymphadenopathy Respiratory exam: Present: normal lung sounds bilaterally. Absent: respiratory distress, wheezes, rales, rhonchi, stridor Cardiovascular Exam: Present: regular rate, normal rhythm, normal heart sounds. Absent: systolic murmur, diastolic murmur, rubs, gallop, clicks GI/Abdominal exam: Present: soft, tenderness (mild LLQ ), normal bowel sounds. Absent: distended, guarding, rebound, rigid Extremities exam: Present: normal inspection, full ROM, normal capillary refill. Absent: tenderness, pedal edema, joint swelling, calf tenderness Back exam: Present: normal inspection Neurological exam: Present: alert, oriented X3, CN II-XII intact Psychiatric exam: Present: normal affect, normal mood Skin exam: Present: warm, dry, intact, normal color. Absent: rash <Violetta Ramírez - Last Filed: 04/30/22 23:14> Course <Violetta Ramírez - Last Filed: 04/30/22 23:14> <Martinez Olmos - Last Filed: 05/01/22 02:29> Vital Signs 04/30/22 04/30/22 04/30/22 21:49 22:27 23:04 Temperature 98.4 F Pulse Rate 108 H 83 97 Respiratory 18 17 20 Rate Blood Pressure 164/94 131/79 132/85 O2 Sat by Pulse 98 97 97 Oximetry 05/01/22 00:02 Temperature Pulse Rate 97 Respiratory 20 Rate Blood Pressure 124/84 O2 Sat by Pulse 98 Oximetry - Reevaluation(s) Reevaluation #1: 04/30/22 22:16 Unable to obtain IV access on patient. Per Dr. Rojas, medications can be given IM. (Violetta Ramírez) Reevaluation #2: 04/30/22 22:50 Patient reevaluated. Patient reports mild improvement of symptoms status post medications. (Violetta Ramírez) Reevaluation #3: 04/30/22 23:14 Case discussed with ARISTIDES Henriquez who assumes care of patient. Provider aware awaiting records from [facility]. (Violetta Ramírez) Reevaluation #4: I resumed the care of this patient, she is well known to our ER. On my physical examination patient is complaining of left-sided abdominal pain, she has a history of chronic abdominal pain. Her vitals are stable. Patient has been given Toradol, Benadryl, and Reglan. Her guardian has requested that she does not receive any narcotics. Our psychiatric secretary has recontacted [facility] for the notes from her recent visit. Patient walked out of ER before completion of evaluation and treatment while I was reviewing the records from [facility]. Patient had a mildly elevated lipase and was tolerating oral intake. They deemed her stable for discharge. 05/01/22 01:16 (Martinez Olmos) Medical Decision Making <Martinez Olmos - Last Filed: 05/01/22 02:29> - Medical Decision Making Was pt. sent in by a medical professional or institution (SADE López, ORGANIZATIONAL EFFECTIVENESS CONSULTANT, urgent care, hospital, or [place] facility...) When possible be specific @ -No Did you speak to anyone other than the patient for history (EMS, parent, family, police, friend...)? What history was obtained from this source @ -Previous provider Violetta IRVING Did you review nursing and triage notes (agree or disagree)? Why? @ -I reviewed and agree with nursing and triage notes Were old charts reviewed (outside hosp., previous admission, EMS record, old EKG, old radiological studies, urgent care reports/EKG's, [place] health [place] records)? Report findings @ -Previous visits reviewed Differential Diagnosis (chest pain, altered mental status, abdominal pain women, abdominal pain men, vaginal bleeding, weakness, fever, dyspnea, syncope, headache, dizziness, GI bleed, back pain, seizure, CVA, palpatations, mental health)? @ -Differential includes chronic abdominal pain, kidney stone, pancreatitis EKG interpreted by me (3pts min.). @ -As above X-rays interpreted by me (1pt min.). @ -None done CT interpreted by me (1pt min.). @ -None done U/S interpreted by me (1pt. min.). @ -None done What testing was considered but not performed or refused? (CT, X-rays, U/S, labs)? Why? @ -None What meds were considered but not given or refused? Why? @ -None Did you discuss the management of the patient with other professionals (professionals i.e. , SADE, ORGANIZATIONAL EFFECTIVENESS CONSULTANT, lab, RT, psych nurse, social worker clinical, qa automation engineer, teacher, patrol officer, rehabilitation case coordinator)? Give summary @ -No Was smoking cessation discussed for >3mins.? @ -No Was critical care preformed (if so, how long)? @ -No Were there social determinants of health that impacted care today? How? (Homelessness, low income, unemployed, alcoholism, drug addiction, transportation, low edu. Level, literacy, decrease access to med. care, snf, rehab)? @ -No Was there de-escalation of care discussed even if they declined (Discuss DNR or withdrawal of care, Hospice)? DNR status @ -No What co-morbidities impacted this encounter? (DM, HTN, Smoking, COPD, CAD, Cancer, CVA, ARF, Chemo, Hep., AIDS, mental health diagnosis, sleep apnea, morbid obesity)? @ -None Was patient admitted / discharged? Hospital course, mention meds given and route, prescriptions, significant lab abnormalities, going to OR and other pertinent info. @ -Patient is a 31-year-old female presenting with chief complaint of left- sided abdominal pain. I resumed the care of this patient from Violetta IRVING. Patient was given Toradol, Benadryl, and Reglan for symptomatic management, she is requesting narcotics, her guardian has established that she is not to be given narcotics. Patient was evaluated at [facility] this morning. We requested the records from that visit. While I was reviewing these records patient walked out of the ER. Records indicate the patient had a mildly elevated lipase, she was tolerating oral intake and was deemed stable for discharge. Patient should follow-up with her PCP and report back to ER with any new or worsening symptoms. Undiagnosed new problem with uncertain prognosis? @ -No Drug Therapy requiring intensive monitoring for toxicity (Heparin, Nitro, Insulin, Cardizem)? @ -No Were any procedures done? @ -No Diagnosis/symptom? @ -Abdominal pain Acute, or Chronic, or Acute on Chronic? @ -Chronic Uncomplicated (without systemic symptoms) or Complicated (systemic symptoms)? @ -Uncomplicated Side effects of treatment? @ -No Exacerbation, Progression, or Severe Exacerbation? @ -No Poses a threat to life or bodily function? How? (Chest pain, USA, [place], pneumonia, PE, COPD, DKA, ARF, appy, cholecystitis, CVA, Diverticulitis, Homicidal, Suicidal, threat to staff... and all critical care pts) @ -No (Martinez Olmos) Disposition <Violetta Ramírez - Last Filed: 04/30/22 23:14> Time of Disposition: 01:16 <Martinez Olmos - Last Filed: 05/01/22 02:29> Clinical Impression: Abdominal pain Disposition: Left Against Medical Advice Condition: Fair Instructions (If sedation given, give patient instructions): Abdominal Pain (ED) Referrals: Isi Carolina MD [Primary Care Provider] - 1-2 days
[2022-04-30] MEDS ORDERED: diphenhydrAMINE 50 MG/ML 1 ML VIAL IM STA (22:13)
[2022-04-30] MEDS ORDERED: KETOROLAC 15 MG/ML 1 ML VIAL IM STA (22:13)
[2022-04-30] MEDS ORDERED: METOCLOPRAMIDE 5 MG/ML 2 ML VIAL IM STA (22:14)
[2022-04-30 23:05] VITALS: PULSE 97; RESP 20
[2022-05-01 00:03] VITALS: BP 124/84
== END 2022-05-01 00:58 | disposition left against medical advice (07) ==
LOC: EC 21:44
DX: G89.29 Other chronic pain (principal); R10.32 Left lower quadrant pain; J45.909 Unspecified asthma, uncomplicated; K21.9 Gastro-esophageal reflux disease without esophagitis; E11.9 Type 2 diabetes mellitus without complications; F32.A Depression, unspecified; F41.9 Anxiety disorder, unspecified; Z79.4 Long term (current) use of insulin; Z79.84 Long term (current) use of oral hypoglycemic drugs; Z88.0 Allergy status to penicillin; Z88.1 Allergy status to other antibiotic agents; Z88.2 Allergy status to sulfonamides; Z88.5 Allergy status to narcotic agent; Z88.8 Allergy status to other drugs, medicaments and biological substances; Z91.030 Bee allergy status; Z91.040 Latex allergy status; Z79.899 Other long term (current) drug therapy; Z53.29 Procedure and treatment not carried out because of patient's decision for other reasons
CPT/HCPCS: 99284; 96372 ×3; J1200; J2765; J1885

== ENCOUNTER 2022-05-06 22:31 | Emergency (ER) | payer BC, OTHER ==
[2022-05-06 22:48] VITALS: TEMP 98.8
[2022-05-06] MEDS ORDERED: DICYCLOMINE 10 MG/ML 2 ML AMP IM STA (23:26)
[2022-05-06] MEDS ORDERED: KETOROLAC 15 MG/ML 1 ML VIAL IM STA (23:26)
[2022-05-06] MEDS ORDERED: diphenhydrAMINE 50 MG/ML 1 ML VIAL IM STA (23:26)
[2022-05-06] MEDS ORDERED: METOCLOPRAMIDE 5 MG/ML 2 ML VIAL IM STA (23:26)
--- NOTE | 2022-05-06 23:33 | ED ---
General Adult HPI - General Chief complaint: Abdominal Pain Stated complaint: Abd Pain Time Seen by Provider: 05/06/22 22:53 Source: patient Mode of arrival: ambulatory Limitations: no limitations - History of Present Illness Initial comments: This is a 31-year-old female who is well-known to the emergency department presented emergency department once again for abdominal pain. The patient stated this abdominal pain has been consistent and is the same pain that she normally has but stated that she was doing well until last 2 days. The patient had been seen and evaluated for this pain several times per week over the last several months. The patient had laboratory workup performed within the last several days. The patient denied any other acute pain or complaints but did state that she had a mild headache. The patient was resting in bed comfortably without any change in her symptoms. - Related Data Home Medications Medication Instructions Recorded Confirmed ARIPiprazole IM SYRINGE [Abilify 400 mg IM Q30D 07/28/21 03/30/22 Maintena Syringe] Ibuprofen [Motrin] 800 mg PO Q8H PRN 11/16/21 03/30/22 Omeprazole 20 mg PO DAILY 11/16/21 03/30/22 QUEtiapine FUMARATE [SEROquel XR] 600 mg PO HS 11/16/21 03/30/22 ALPRAZolam [Xanax] 0.25 mg PO DAILY PRN 03/30/22 03/30/22 Acetaminophen [Tylenol Extra 500 mg PO Q4H PRN 03/30/22 03/30/22 Strength] Fenofibrate [Lofibra] 160 mg PO DAILY 03/30/22 03/30/22 Insulin Aspart [NovoLOG Flexpen] See Protocol SQ DIRECTED 03/30/22 03/30/22 Insulin Glargine,Hum.rec.anlog 45 units SQ DAILY 03/30/22 03/30/22 [Lantus Solostar Pen] Naproxen [Naprosyn] 500 mg PO BID 03/30/22 03/30/22 Ondansetron Odt [Zofran ODT] 4 mg SL DAILY PRN 03/30/22 03/30/22 Propranolol HCl [Inderal] 60 mg PO DAILY 03/30/22 03/30/22 metFORMIN HCL [Glucophage] 1,000 mg PO DAILY 03/30/22 03/30/22 tiZANidine [Zanaflex] 4 mg PO BID PRN 03/30/22 03/30/22 Allergies Allergy/AdvReac Type Severity Reaction Status Date / Time bee pollen Allergy Severe Anaphylaxis Verified 05/06/22 22:46 haloperidol [From Haldol] Allergy Severe QUIT Verified 05/06/22 22:46 BREATHING haloperidol lactate Allergy Severe QUIT Verified 05/06/22 22:46 [From Haldol] BREATHING latex Allergy Severe RASH-THROAT Verified 05/06/22 22:46 CLOSES [place] Allergy Anaphylaxis Verified 05/06/22 22:46 coconut Allergy Anaphylaxis Verified 05/06/22 22:46 morphine Allergy Rash/Hives Verified 05/06/22 22:46 pineapple Allergy Anaphylaxis Verified 05/06/22 22:46 prednisone Allergy THROAT Verified 05/06/22 22:46 SWELLS spider venom Allergy Swelling Verified 05/06/22 22:46 Sulfa (Sulfonamide Allergy THROAT Verified 05/06/22 22:46 Antibiotics) SWELLS venom-wasp Allergy Swelling Verified 05/06/22 22:46 venom-wasp protein Allergy Swelling Verified 05/06/22 22:46 promethazine HCl AdvReac Severe Nausea & Verified 05/06/22 22:46 [From Phenergan] Vomiting tramadol AdvReac Severe Nausea & Verified 05/06/22 22:46 Vomiting amoxicillin AdvReac Nausea & Verified 05/06/22 22:46 Vomiting ANTS AdvReac Mild Anaphylaxis Uncoded 05/06/22 22:46 Review of Systems ROS Statement: Those systems with pertinent positive or pertinent negative responses have been documented in the HPI. ROS Other: All systems not noted in ROS Statement are negative. Past Medical History Past Medical History: Asthma, Diabetes Mellitus, GERD/Reflux Additional Past Medical History / Comment(s): migraines, degenerative disk disease, endometriosis, lupus, pancreatitis, DM2- insulin History of Any Multi-Drug Resistant Organisms: None Reported Past Surgical History: Cholecystectomy, Orthopedic Surgery Additional Past Surgical History / Comment(s): laparoscopc surgery for endometriosis, cyst removed from left foot, EGD, Past Anesthesia/Blood Transfusion Reactions: Previous Problems w/ Anesthesia Additional Past Anesthesia/Blood Transfusion Reaction / Comment(s): hard to wake up for 48-72 hours after laparoscopic surgery-was in hosp. for 3 days Past Psychological History: Anxiety, Depression, PTSD Smoking Status: Vaper Past Alcohol Use History: None Reported Past Drug Use History: None Reported - Past Family History Mother Family Medical History: No Reported History Additional Family Medical History / Comment(s): hx migraines Father Family Medical History: Coronary Artery Disease (CAD), Hypertension Additional Family Medical History / Comment(s): ddd, alcoholism & drug use General Exam Limitations: no limitations General appearance: alert, in no apparent distress, obese Head exam: Present: atraumatic, normocephalic, normal inspection Eye exam: Present: normal appearance, PERRL Pupils: Present: normal accommodation ENT exam: Present: normal exam, normal oropharynx, mucous membranes moist Neck exam: Present: normal inspection, full ROM Respiratory exam: Present: normal lung sounds bilaterally Cardiovascular Exam: Present: regular rate, normal rhythm, normal heart sounds GI/Abdominal exam: Present: soft, normal bowel sounds Extremities exam: Present: normal inspection, full ROM Back exam: Present: normal inspection, full ROM Neurological exam: Present: alert, oriented X3, CN II-XII intact Psychiatric exam: Present: normal affect, normal mood Skin exam: Present: warm, dry Course Vital Signs 05/06/22 22:46 Temperature 98.8 F Pulse Rate 118 H Respiratory 18 Rate Blood Pressure 130/84 O2 Sat by Pulse 98 Oximetry Medical Decision Making - Medical Decision Making Was pt. sent in by a medical professional or institution ([facility], COW WASHER, urgent care, hospital, or custodial...) When possible be specific @ -No Did you speak to anyone other than the patient for history (EMS, parent, family, police, friend...)? What history was obtained from this source @ -No Did you review nursing and triage notes (agree or disagree)? Why? @ -I reviewed and agree with nursing and triage notes Were old charts reviewed (outside hosp., previous admission, EMS record, old EKG, old radiological studies, urgent care reports/EKG's, custodial records)? Report findings @ -Yes, previous ER notes were reviewed Differential Diagnosis (chest pain, altered mental status, abdominal pain women, abdominal pain men, vaginal bleeding, weakness, fever, dyspnea, syncope, headache, dizziness, GI bleed, back pain, seizure, CVA, palpatations, mental health)? @ -Chronic abdominal pain, gastroenteritis EKG interpreted by me (3pts min.). @ -None X-rays interpreted by me (1pt min.). @ -None done CT interpreted by me (1pt min.). @ -None done U/S interpreted by me (1pt. min.). @ -None done What testing was considered but not performed or refused? (CT, X-rays, U/S, labs)? Why? @ -None What meds were considered but not given or refused? Why? @ -None Did you discuss the management of the patient with other professionals (professionals i.e. , PA, COW WASHER, lab, RT, psych nurse, geriatric social work professor, lodging house keeper, teacher, transportation officer, case finisher)? Give summary @ -No Was smoking cessation discussed for >3mins.? @ -No Was critical care preformed (if so, how long)? @ -No Were there social determinants of health that impacted care today? How? (Homelessness, low income, unemployed, alcoholism, drug addiction, transportation, low edu. Level, literacy, decrease access to med. care, correction, rehab)? @ -Low medical literacy Was there de-escalation of care discussed even if they declined (Discuss DNR or withdrawal of care, Hospice)? DNR status @ -No What co-morbidities impacted this encounter? (DM, HTN, Smoking, COPD, CAD, Cancer, CVA, ARF, Chemo, Hep., AIDS, mental health diagnosis, sleep apnea, morbid obesity)? @ -Chronic abdominal pain, asthma Was patient admitted / discharged? Hospital course, mention meds given and route, prescriptions, significant lab abnormalities, going to OR and other pertinent info. @ -The patient was seen and evaluated emergency department. Physical exam, the patient was resting in bed without any acute distress. Vital signs were stable. The patient had laboratory workup obtained several days in the last week therefore no labs were obtained at this time as the patient had normal and consistent abdominal pain. The patient was given IM medications including Bentyl, Toradol, Benadryl and Reglan. The patient on reevaluation a complete resolution of her symptoms and was seems still for discharge. The patient stated that she arty to follow-up with her "[email or web address] for another MRI" next week and she was advised to follow-up with this appointment. The patient was agreeable to this and all her questions were answered. The patient was discharged home in stable condition. Undiagnosed new problem with uncertain prognosis? @ -No Drug Therapy requiring intensive monitoring for toxicity (Heparin, Nitro, Insulin, Cardizem)? @ -No Were any procedures done? @ -No Diagnosis/symptom? @ -Chronic abdominal pain Acute, or Chronic, or Acute on Chronic? @ -Chronic Uncomplicated (without systemic symptoms) or Complicated (systemic symptoms)? @ -Uncomplicated Side effects of treatment? @ -No Exacerbation, Progression, or Severe Exacerbation? @ -No Poses a threat to life or bodily function? How? (Chest pain, USA, [place], pneumonia, PE, COPD, DKA, ARF, appy, cholecystitis, CVA, Diverticulitis, Homicidal, Suicidal, threat to staff... and all critical care pts) @ -No Disposition Clinical Impression: Chronic abdominal pain Disposition: HOME SELF-CARE Condition: Stable Instructions (If sedation given, give patient instructions): Abdominal Pain (ED) Is patient prescribed a controlled substance at d/c from ED?: No Referrals: Isi Carolina MD [Primary Care Provider] - 1-2 days Time of Disposition: 23:45
[2022-05-07 00:21] VITALS: BP 149/82; PULSE 108; RESP 16
== END 2022-05-07 00:15 | disposition home or self-care (01) ==
LOC: EC 22:31
DX: R10.9 Unspecified abdominal pain (principal); G89.29 Other chronic pain; J45.909 Unspecified asthma, uncomplicated; E11.9 Type 2 diabetes mellitus without complications; K21.9 Gastro-esophageal reflux disease without esophagitis; F41.9 Anxiety disorder, unspecified; F32.A Depression, unspecified; F17.290 Nicotine dependence, other tobacco product, uncomplicated; Z79.4 Long term (current) use of insulin; Z79.84 Long term (current) use of oral hypoglycemic drugs; Z79.899 Other long term (current) drug therapy; Z88.0 Allergy status to penicillin; Z88.1 Allergy status to other antibiotic agents; Z88.2 Allergy status to sulfonamides; Z88.5 Allergy status to narcotic agent; Z88.8 Allergy status to other drugs, medicaments and biological substances; Z91.030 Bee allergy status; Z91.040 Latex allergy status; Z90.49 Acquired absence of other specified parts of digestive tract; Z91.018 Allergy to other foods
CPT/HCPCS: 99284; 96372 ×4; J1200; J0500; J2765; J1885

== ENCOUNTER 2022-05-14 11:20 | Emergency (ER) | payer BC, OTHER ==
[2022-05-14 11:44] VITALS: BP 142/100; PULSE 97; RESP 16; TEMP 97
[2022-05-14] MEDS ORDERED: KETOROLAC 15 MG/ML 1 ML VIAL IM STA (12:27)
[2022-05-14] MEDS ORDERED: diphenhydrAMINE 50 MG/ML 1 ML VIAL IM STA (12:27)
[2022-05-14] MEDS ORDERED: METOCLOPRAMIDE 5 MG/ML 2 ML VIAL IM STA (12:27)
--- NOTE | 2022-05-14 12:32 | ED ---
General Adult HPI - General Chief complaint: Abdominal Pain Stated complaint: Abd pain Time Seen by Provider: 05/14/22 12:13 Source: patient, RN notes reviewed Mode of arrival: ambulatory Limitations: no limitations - History of Present Illness Initial comments: Patient is a pleasant 31-year-old female presenting to the emergency Department with chronic headaches and chronic abdominal pain. Patient states symptoms have worsened again over the last couple of days. Patient has been seen in the emergency department multiple times for this. Patient states symptoms are similar to chronic problems. No new weakness. No known nausea vomiting. Patient states she did have an episode of loose stool. No urinary symptoms. No fever. - Related Data Home Medications Medication Instructions Recorded Confirmed ARIPiprazole IM SYRINGE [Abilify 400 mg IM Q30D 07/28/21 03/30/22 Maintena Syringe] Ibuprofen [Motrin] 800 mg PO Q8H PRN 11/16/21 03/30/22 Omeprazole 20 mg PO DAILY 11/16/21 03/30/22 QUEtiapine FUMARATE [SEROquel XR] 600 mg PO HS 11/16/21 03/30/22 ALPRAZolam [Xanax] 0.25 mg PO DAILY PRN 03/30/22 03/30/22 Acetaminophen [Tylenol Extra 500 mg PO Q4H PRN 03/30/22 03/30/22 Strength] Fenofibrate [Lofibra] 160 mg PO DAILY 03/30/22 03/30/22 Insulin Aspart [NovoLOG Flexpen] See Protocol SQ DIRECTED 03/30/22 03/30/22 Insulin Glargine,Hum.rec.anlog 45 units SQ DAILY 03/30/22 03/30/22 [Lantus Solostar Pen] Naproxen [Naprosyn] 500 mg PO BID 03/30/22 03/30/22 Ondansetron Odt [Zofran ODT] 4 mg SL DAILY PRN 03/30/22 03/30/22 Propranolol HCl [Inderal] 60 mg PO DAILY 03/30/22 03/30/22 metFORMIN HCL [Glucophage] 1,000 mg PO DAILY 03/30/22 03/30/22 tiZANidine [Zanaflex] 4 mg PO BID PRN 03/30/22 03/30/22 Allergies Allergy/AdvReac Type Severity Reaction Status Date / Time bee pollen Allergy Severe Anaphylaxis Verified 05/14/22 11:42 haloperidol [From Haldol] Allergy Severe QUIT Verified 05/14/22 11:42 BREATHING haloperidol lactate Allergy Severe QUIT Verified 05/14/22 11:42 [From Haldol] BREATHING latex Allergy Severe RASH-THROAT Verified 05/14/22 11:42 CLOSES [place] Allergy Anaphylaxis Verified 05/14/22 11:42 coconut Allergy Anaphylaxis Verified 05/14/22 11:42 morphine Allergy Rash/Hives Verified 05/14/22 11:42 pineapple Allergy Anaphylaxis Verified 05/14/22 11:42 prednisone Allergy THROAT Verified 05/14/22 11:42 SWELLS spider venom Allergy Swelling Verified 05/14/22 11:42 Sulfa (Sulfonamide Allergy THROAT Verified 05/14/22 11:42 Antibiotics) SWELLS venom-wasp Allergy Swelling Verified 05/14/22 11:42 venom-wasp protein Allergy Swelling Verified 05/14/22 11:42 promethazine HCl AdvReac Severe Nausea & Verified 05/14/22 11:42 [From Phenergan] Vomiting tramadol AdvReac Severe Nausea & Verified 05/14/22 11:42 Vomiting amoxicillin AdvReac Nausea & Verified 05/14/22 11:42 Vomiting ANTS AdvReac Mild Anaphylaxis Uncoded 05/14/22 11:42 Review of Systems ROS Statement: Those systems with pertinent positive or pertinent negative responses have been documented in the HPI. ROS Other: All systems not noted in ROS Statement are negative. Constitutional: Denies: chills Eyes: Denies: eye pain Cardiovascular: Denies: palpitations Endocrine: Denies: fatigue Gastrointestinal: Reports: as per HPI Neurological: Reports: as per HPI, headache. Denies: weakness, numbness, paresthesias, confusion Past Medical History Past Medical History: Asthma, Diabetes Mellitus, GERD/Reflux Additional Past Medical History / Comment(s): migraines, degenerative disk disease, endometriosis, lupus, pancreatitis, DM2- insulin History of Any Multi-Drug Resistant Organisms: None Reported Past Surgical History: Cholecystectomy, Orthopedic Surgery Additional Past Surgical History / Comment(s): laparoscopc surgery for endometriosis, cyst removed from left foot, EGD, Past Anesthesia/Blood Transfusion Reactions: Previous Problems w/ Anesthesia Additional Past Anesthesia/Blood Transfusion Reaction / Comment(s): hard to wake up for 48-72 hours after laparoscopic surgery-was in hosp. for 3 days Past Psychological History: Anxiety, Depression, PTSD Smoking Status: Vaper Past Alcohol Use History: None Reported Past Drug Use History: None Reported - Past Family History Mother Family Medical History: No Reported History Additional Family Medical History / Comment(s): hx migraines Father Family Medical History: Coronary Artery Disease (CAD), Hypertension Additional Family Medical History / Comment(s): ddd, alcoholism & drug use General Exam Limitations: no limitations General appearance: alert, in no apparent distress Head exam: Present: atraumatic Eye exam: Present: normal appearance, PERRL, EOMI Neck exam: Present: normal inspection Respiratory exam: Present: normal lung sounds bilaterally Cardiovascular Exam: Present: regular rate, normal rhythm GI/Abdominal exam: Present: soft, tenderness (Mild diffuse tenderness), normal bowel sounds. Absent: distended, guarding, rebound, rigid, pulsatile mass Neurological exam: Present: alert, oriented X3, CN II-XII intact. Absent: motor sensory deficit Expanded Neurological exam: Present: protecting the airway Speech: Present: fluid speech Cranial nerves: EOM's Intact: Normal Motor strength exam: RUE: 5, LUE: 5, RLE: 5, LLE: 5 Eye Response: (4) open spontaneously Motor Response: (6) obeys commands Verbal Response: (5) oriented Psychiatric exam: Present: normal affect, normal mood Skin exam: Present: normal color Course Vital Signs 05/14/22 11:43 Temperature 97 F L Pulse Rate 97 Respiratory 16 Rate Blood Pressure 142/100 O2 Sat by Pulse 98 Oximetry Medical Decision Making - Medical Decision Making Was pt. sent in by a medical professional or institution (, PA, HISTORIC PRESERVATIONIST, urgent care, hospital, or residential...) When possible be specific @ -No Did you speak to anyone other than the patient for history (EMS, parent, family, police, friend...)? What history was obtained from this source @ -No Did you review nursing and triage notes (agree or disagree)? Why? @ -I reviewed and agree with nursing and triage notes Were old charts reviewed (outside hosp., previous admission, EMS record, old EKG, old radiological studies, urgent care reports/EKG's, residential records)? Report findings @ -No old charts were reviewed Differential Diagnosis (chest pain, altered mental status, abdominal pain women, abdominal pain men, vaginal bleeding, weakness, fever, dyspnea, syncope, headache, dizziness, GI bleed, back pain, seizure, CVA, palpatations, mental health)? @ -Differential Abdominal Pain Women: Appendicitis, Cholecystitis, diverticulosis, ischemic bowel, pancreatitis, hepatitis, UTI, gastroenteritis, AAA, incarcerated hernia, bowel obstruction, constipation, inflammatory bowel, hepatitis, peptic ulcer disease, splenic infarction, perforated viscus, vulvitis, ovarian torsion, PID, kidney stone, placenta abruption, this is not meant to be an all-inclusive list EKG interpreted by me (3pts min.). @ -As above X-rays interpreted by me (1pt min.). @ -None done CT interpreted by me (1pt min.). @ -None done U/S interpreted by me (1pt. min.). @ -None done What testing was considered but not performed or refused? (CT, X-rays, U/S, labs)? Why? @ -None What meds were considered but not given or refused? Why? @ -None Did you discuss the management of the patient with other professionals (professionals i.e. , PA, HISTORIC PRESERVATIONIST, lab, RT, psych nurse, geriatric social worker, water analyst, teacher, chief investment officer, wrapper caser)? Give summary @ -No Was smoking cessation discussed for >3mins.? @ -No Was critical care preformed (if so, how long)? @ -No Were there social determinants of health that impacted care today? How? (Homelessness, low income, unemployed, alcoholism, drug addiction, transportation, low edu. Level, literacy, decrease access to med. care, long-term, rehab)? @ -No Was there de-escalation of care discussed even if they declined (Discuss DNR or withdrawal of care, Hospice)? DNR status @ -No What co-morbidities impacted this encounter? (DM, HTN, Smoking, COPD, CAD, Cancer, CVA, ARF, Chemo, Hep., AIDS, mental health diagnosis, sleep apnea, morbid obesity)? @ -None Was patient admitted / discharged? Hospital course, mention meds given and route, prescriptions, significant lab abnormalities, going to OR and other pertinent info. @ -Discussion had with patient regarding medications. Guarding and requests no narcotics. Patient would like Toradol and Reglan and Benadryl. Patient symptoms and presentation are consistent with previous. Patient will be discharged following medication. Undiagnosed new problem with uncertain prognosis? @ -No Drug Therapy requiring intensive monitoring for toxicity (Heparin, Nitro, Insulin, Cardizem)? @ -No Were any procedures done? @ -No Diagnosis/symptom? @ -Abdominal pain, headache Acute, or Chronic, or Acute on Chronic? @ -Acute on chronic, acute on chronic Uncomplicated (without systemic symptoms) or Complicated (systemic symptoms)? @ -default Side effects of treatment? @ -No Exacerbation, Progression, or Severe Exacerbation? @ -No Poses a threat to life or bodily function? How? (Chest pain, [place], [place], pneumonia, PE, COPD, DKA, ARF, appy, cholecystitis, CVA, Diverticulitis, Homicidal, Suicidal, threat to staff... and all critical care pts) @ -No Disposition Clinical Impression: Chronic abdominal pain, Chronic headache Disposition: HOME SELF-CARE Condition: Stable Instructions (If sedation given, give patient instructions): Abdominal Pain (ED) Additional Instructions: Please do follow-up to primary care physician in the next day or 2 for recheck. Return for increased headache or abdominal pain, vomiting, fever, weakness, worsening or change in symptoms or any other concerns. Is patient prescribed a controlled substance at d/c from ED?: No Referrals: Isi Carolina MD [Primary Care Provider] - 1-2 days Time of Disposition: 12:32
== END 2022-05-14 12:44 | disposition home or self-care (01) ==
LOC: EC 11:20
DX: G89.29 Other chronic pain (principal); R10.9 Unspecified abdominal pain; R51.9 Headache, unspecified; J45.909 Unspecified asthma, uncomplicated; F32.A Depression, unspecified; F41.9 Anxiety disorder, unspecified; K21.9 Gastro-esophageal reflux disease without esophagitis; E11.9 Type 2 diabetes mellitus without complications; Z79.1 Long term (current) use of non-steroidal anti-inflammatories (NSAID); Z79.4 Long term (current) use of insulin; Z79.84 Long term (current) use of oral hypoglycemic drugs; Z79.899 Other long term (current) drug therapy; Z88.0 Allergy status to penicillin; Z88.1 Allergy status to other antibiotic agents; Z88.2 Allergy status to sulfonamides; Z88.5 Allergy status to narcotic agent; Z88.8 Allergy status to other drugs, medicaments and biological substances; Z91.030 Bee allergy status; Z91.040 Latex allergy status
CPT/HCPCS: 99283; 96372 ×3; J1200; J2765; J1885

== ENCOUNTER 2022-06-17 03:20 | Emergency (ER) | payer BC, OTHER ==
[2022-06-17 03:49] VITALS: BP 106/72; PULSE 110; RESP 16; TEMP 98.2
[2022-06-17] MEDS ORDERED: KETOROLAC 15 MG/ML 1 ML VIAL IM STA (04:44)
[2022-06-17] MEDS ORDERED: diphenhydrAMINE 50 MG/ML 1 ML VIAL IM STA (04:44)
--- NOTE | 2022-06-17 04:45 | ED ---
Abdominal Pain HPI - General Chief Complaint: Abdominal Pain Stated Complaint: Abdominal Pain Time Seen by Provider: 06/17/22 04:00 Source: patient Mode of arrival: ambulatory Limitations: no limitations - History of Present Illness Initial Comments: 31-year-old female well known to the emergency department presents today for abdominal pain. She has been seen several times in the emergency department for same complaint. Reports that she is currently following with a doctor out of [facility] in an attempt to discuss her chronic abdominal pain. She had an MRI done on her abdomen on May 26. States that she has not received her results as of yet. She began having worsening abdominal pain this evening. Eyes dysuria, hematuria or difficulty voiding. No black or bloody stools. She denies chest pain. Admits to mild nausea without vomiting. No other alleviating, precipitating or modifying factors - Related Data Home Medications Medication Instructions Recorded Confirmed ARIPiprazole IM SYRINGE [Abilify 400 mg IM Q30D 07/28/21 06/23/22 Maintena Syringe] Ibuprofen [Motrin] 800 mg PO Q8H PRN 11/16/21 06/23/22 Omeprazole 20 mg PO DAILY 11/16/21 06/23/22 QUEtiapine FUMARATE [SEROquel XR] 600 mg PO HS 11/16/21 06/23/22 Acetaminophen [Tylenol Extra 500 mg PO Q4H PRN 03/30/22 06/23/22 Strength] Insulin Aspart [NovoLOG Flexpen] See Protocol SQ DIRECTED 03/30/22 06/23/22 Insulin Glargine,Hum.rec.anlog 45 units SQ DAILY 03/30/22 06/23/22 [Lantus Solostar Pen] Naproxen [Naprosyn] 500 mg PO BID 03/30/22 06/23/22 Ondansetron Odt [Zofran ODT] 4 mg SL DAILY PRN 03/30/22 06/23/22 Propranolol HCl [Inderal] 60 mg PO DAILY 03/30/22 06/23/22 metFORMIN HCL [Glucophage] 1,000 mg PO DAILY 03/30/22 06/23/22 tiZANidine [Zanaflex] 4 mg PO BID PRN 03/30/22 06/23/22 Etonogestrel [Nexplanon] 68 mg 06/22/22 Previous Rx's Medication Instructions Recorded Albuterol Nebulized [Ventolin 2.5 mg INHALATION Q4H PRN #75 ml 06/07/22 Nebulized] Ibuprofen [Motrin] 800 mg PO Q8HR PRN #30 tab 06/07/22 Allergies Allergy/AdvReac Type Severity Reaction Status Date / Time bee pollen Allergy Severe Anaphylaxis Verified 06/23/22 22:28 haloperidol [From Haldol] Allergy Severe QUIT Verified 06/23/22 22:28 BREATHING haloperidol lactate Allergy Severe QUIT Verified 06/23/22 22:28 [From Haldol] BREATHING latex Allergy Severe RASH-THROAT Verified 06/23/22 22:28 CLOSES [place] Allergy Anaphylaxis Verified 06/23/22 22:28 coconut Allergy Anaphylaxis Verified 06/23/22 22:28 morphine Allergy Rash/Hives Verified 06/23/22 22:28 pineapple Allergy Anaphylaxis Verified 06/23/22 22:28 spider venom Allergy Swelling Verified 06/23/22 22:28 Sulfa (Sulfonamide Allergy THROAT Verified 06/23/22 22:28 Antibiotics) SWELLS venom-wasp Allergy Swelling Verified 06/23/22 22:28 venom-wasp protein Allergy Swelling Verified 06/23/22 22:28 promethazine HCl AdvReac Severe Nausea & Verified 06/23/22 22:28 [From Phenergan] Vomiting tramadol AdvReac Severe Nausea & Verified 06/23/22 22:28 Vomiting amoxicillin AdvReac Nausea & Verified 06/23/22 22:28 Vomiting ANTS AdvReac Mild Anaphylaxis Uncoded 06/23/22 22:28 Review of Systems ROS Statement: Those systems with pertinent positive or pertinent negative responses have been documented in the HPI. ROS Other: All systems not noted in ROS Statement are negative. Past Medical History Past Medical History: Asthma, Diabetes Mellitus, GERD/Reflux Additional Past Medical History / Comment(s): migraines, degenerative disk disease, endometriosis, lupus, pancreatitis, DM2- insulin History of Any Multi-Drug Resistant Organisms: None Reported Past Surgical History: Cholecystectomy, Orthopedic Surgery Additional Past Surgical History / Comment(s): laparoscopc surgery for endometriosis, cyst removed from left foot, EGD, Past Anesthesia/Blood Transfusion Reactions: Previous Problems w/ Anesthesia Additional Past Anesthesia/Blood Transfusion Reaction / Comment(s): hard to wake up for 48-72 hours after laparoscopic surgery-was in hosp. for 3 days Past Psychological History: Anxiety, Depression, PTSD Smoking Status: Vaper Past Alcohol Use History: None Reported Past Drug Use History: None Reported - Past Family History Mother Family Medical History: No Reported History Additional Family Medical History / Comment(s): hx migraines Father Family Medical History: Coronary Artery Disease (CAD), Hypertension Additional Family Medical History / Comment(s): ddd, alcoholism & drug use General Exam Limitations: no limitations General appearance: alert, in no apparent distress Head exam: Present: atraumatic, normocephalic, normal inspection Eye exam: Present: normal appearance, PERRL, EOMI. Absent: scleral icterus, conjunctival injection, periorbital swelling ENT exam: Present: normal exam, mucous membranes moist Neck exam: Present: normal inspection. Absent: tenderness, meningismus, lymphadenopathy Respiratory exam: Present: normal lung sounds bilaterally. Absent: respiratory distress, wheezes, rales, rhonchi, stridor Cardiovascular Exam: Present: regular rate, normal rhythm, normal heart sounds. Absent: systolic murmur, diastolic murmur, rubs, gallop, clicks GI/Abdominal exam: Present: soft, normal bowel sounds. Absent: distended, tende rness, guarding, rebound, rigid Extremities exam: Present: normal inspection, full ROM, normal capillary refill. Absent: tenderness, pedal edema, joint swelling, calf tenderness Back exam: Present: normal inspection Neurological exam: Present: alert, oriented X3, CN II-XII intact Psychiatric exam: Present: normal affect, normal mood Skin exam: Present: warm, dry, intact, normal color. Absent: rash Course Vital Signs 06/17/22 03:46 Temperature 98.2 F Pulse Rate 110 H Respiratory 16 Rate Blood Pressure 106/72 O2 Sat by Pulse 98 Oximetry Medical Decision Making - Medical Decision Making Was pt. sent in by a medical professional or institution (, PA, FRONT END DRUPAL DEVELOPER, urgent care, hospital, or senior care...) When possible be specific @ -No Did you speak to anyone other than the patient for history (EMS, parent, family, police, friend...)? What history was obtained from this source @ -No Did you review nursing and triage notes (agree or disagree)? Why? @ -I reviewed and agree with nursing and triage notes Were old charts reviewed (outside hosp., previous admission, EMS record, old EKG, old radiological studies, urgent care reports/EKG's, senior care records)? Report findings @ -Old charts were reviewed Differential Diagnosis (chest pain, altered mental status, abdominal pain women, abdominal pain men, vaginal bleeding, weakness, fever, dyspnea, syncope, headache, dizziness, GI bleed, back pain, seizure, CVA, palpatations, mental health, musculoskeletal)? @ -pancreatitis, nephrolithiaisis EKG interpreted by me (3pts min.). @ -No X-rays interpreted by me (1pt min.). @ -Not done CT interpreted by me (1pt min.). @ -None done U/S interpreted by me (1pt. min.). @ -None done What testing was considered but not performed or refused? (CT, X-rays, U/S, labs)? Why? @ -None What meds were considered but not given or refused? Why? @ -None Did you discuss the management of the patient with other professionals (professionals i.e. , PA, FRONT END DRUPAL DEVELOPER, lab, RT, psych nurse, social work nurse, social work therapist, teacher, sba business development officer, senior case manager)? Give summary @ -No Was smoking cessation discussed for >3mins.? @ -No Was critical care preformed (if so, how long)? @ -No Were there social determinants of health that impacted care today? How? (Homelessness, low income, unemployed, alcoholism, drug addiction, transportation, low edu. Level, literacy, decrease access to med. care, prison, rehab)? @ -No Was there de-escalation of care discussed even if they declined (Discuss DNR or withdrawal of care, Hospice)? DNR status @ -No What co-morbidities impacted this encounter? (DM, HTN, Smoking, COPD, CAD, Cancer, CVA, ARF, Chemo, Hep., AIDS, mental health diagnosis, sleep apnea, morbid obesity)? @ -Chronic pain Was patient admitted / discharged? Hospital course, mention meds given and route, prescriptions, significant lab abnormalities, going to OR and other pertinent info. @ -Upon arrival patient was placed into room 19. Thorough history and physical exam was performed. I did review the patient's previous records. She has been seen several times for the same complaint. She is already under the care of a specialist. Discussed treating symptoms at this time for which the patient was agreeable. He was given a dose of Toradol and Benadryl. Instructed to follow-up with her surgeon for her chronic issues return for any new or worsening symptoms. Patient agreeable discharged home in stable condition Undiagnosed new problem with uncertain prognosis? @ -No Drug Therapy requiring intensive monitoring for toxicity (Heparin, Nitro, Insulin, Cardizem)? @ -No Were any procedures done? @ -No Diagnosis/symptom? @ -acute on chronic abd pain Acute, or Chronic, or Acute on Chronic? @ -acute on chronic Uncomplicated (without systemic symptoms) or Complicated (systemic symptoms)? @ -complicated Side effects of treatment? @ -allergic reaction Exacerbation, Progression, or Severe Exacerbation? @ -Yes Poses a threat to life or bodily function? How? (Chest pain, [place], VA, pneumonia, PE, COPD, DKA, ARF, appy, cholecystitis, CVA, Diverticulitis, Homicidal, Suicidal, threat to staff... and all critical care pts) @ -no Disposition Clinical Impression: Abdominal pain Disposition: HOME SELF-CARE Condition: Stable Instructions (If sedation given, give patient instructions): Abdominal Pain (ED) Additional Instructions: Follow-up with your specialist at [facility] for further care Is patient prescribed a controlled substance at d/c from ED?: No Referrals: Isi Carolina MD [Primary Care Provider] - 1-2 days Time of Disposition: 04:45
== END 2022-06-17 05:07 | disposition home or self-care (01) ==
LOC: EC 03:20
DX: R10.9 Unspecified abdominal pain (principal); E11.9 Type 2 diabetes mellitus without complications; F32.A Depression, unspecified; F41.9 Anxiety disorder, unspecified; J45.909 Unspecified asthma, uncomplicated; K21.9 Gastro-esophageal reflux disease without esophagitis; Z79.1 Long term (current) use of non-steroidal anti-inflammatories (NSAID); Z79.4 Long term (current) use of insulin; Z79.84 Long term (current) use of oral hypoglycemic drugs; Z79.899 Other long term (current) drug therapy; Z88.0 Allergy status to penicillin; Z88.1 Allergy status to other antibiotic agents; Z88.2 Allergy status to sulfonamides; Z88.5 Allergy status to narcotic agent; Z88.8 Allergy status to other drugs, medicaments and biological substances; Z91.030 Bee allergy status; Z91.040 Latex allergy status
CPT/HCPCS: 99284; 96372 ×2; J1200; J1885

== ENCOUNTER 2022-06-23 22:07 | Emergency (ER) | payer OTHER ==
[2022-06-23 22:33] VITALS: TEMP 97.8
[2022-06-23 22:34] LABS: Glucose,Whole Blood 405 mg/dL (70-110)
[2022-06-24] MEDS ORDERED: diphenhydrAMINE 50 MG/ML 1 ML VIAL IM STA (00:21)
[2022-06-24] MEDS ORDERED: KETOROLAC 15 MG/ML 1 ML VIAL IM STA (00:21)
[2022-06-24] MEDS ORDERED: ONDANSETRON ODT 4 MG TAB PO STA (00:35)
[2022-06-24] MEDS ORDERED: diphenhydrAMINE 50 MG/ML 1 ML VIAL IVP STA (01:11)
[2022-06-24] MEDS ORDERED: ONDANSETRON 4 MG/2 ML VIAL IVP STA (01:11)
[2022-06-24] MEDS ORDERED: KETOROLAC 15 MG/ML 1 ML VIAL IVP STA ×2 (01:11→02:24)
[2022-06-24 01:35] LABS: ALT 24 U/L (4-34); AST 18 U/L (14-36); African American GFR (CKD) >90 (>60 ml/min/1.73 sqM); Albumin 4.1 g/dL (3.5-5.0); Alkaline Phosphatase 78 U/L (38-126); Amylase 50 U/L (30-110); Anion Gap 10 mmol/L; Blood Urea Nitrogen 14 mg/dL (7-17); Calcium 9.9 mg/dL (8.4-10.2); Carbon Dioxide 20 mmol/L (22-30); Chloride 104 mmol/L (98-107); Glucose 337 mg/dL (74-99); Lipase 482 U/L (23-300); Non-African American GFR(CKD) >90 (>60 ml/min/1.73 sqM); Potassium 4.2 mmol/L (3.5-5.1); Sodium 134 mmol/L (137-145); Total Bilirubin 0.3 mg/dL (0.2-1.3); Total Protein 7.4 g/dL (6.3-8.2)
--- NOTE | 2022-06-24 01:42 | ED ---
Abdominal Pain HPI - General Chief Complaint: Abdominal Pain Stated Complaint: High Sugar <500,ABD Pain Time Seen by Provider: 06/24/22 00:20 Source: patient, RN notes reviewed Mode of arrival: ambulatory Limitations: no limitations - History of Present Illness Initial Comments: This is a 31-year-old female who presents to the emergency department for ab dominal pain and elevated blood sugar. Patient is very well-known to this emergency department for repeat visits related to the abdominal pain. She has just started following with the [facility] regarding the chronic pancreatitis. The provider she saw there is waiting on the results of her MRI before discussing treatment options. However, it was recommended that she have a port placed due to the difficulty with establishing IV access. With regards to the elevated blood sugar. States that she measured it at being greater than 500 at home. She is nauseous but denies any vomiting. Denies any fevers, chills, sore throat, cough, dyspnea, chest pain, palpitations, vomiting, diarrhea, back pain, or headaches. MD Complaint: abdominal pain - Related Data Home Medications Medication Instructions Recorded Confirmed RX: ARIPiprazole IM SYRINGE 400 mg IM Q30D 07/28/21 06/23/22 [Abilify Maintena Syringe] RX: Ibuprofen [Motrin] 800 mg PO Q8H PRN 11/16/21 06/23/22 RX: Omeprazole 20 mg PO DAILY 11/16/21 06/23/22 RX: QUEtiapine FUMARATE [SEROquel 600 mg PO HS 11/16/21 06/23/22 XR] Insulin Aspart [NovoLOG Flexpen] See Protocol SQ DIRECTED 03/30/22 06/23/22 Insulin Glargine,Hum.rec.anlog 45 units SQ DAILY 03/30/22 06/23/22 [Lantus Solostar Pen] RX: Acetaminophen [Tylenol Extra 500 mg PO Q4H PRN 03/30/22 06/23/22 Strength] RX: Naproxen [Naprosyn] 500 mg PO BID 03/30/22 06/23/22 RX: Ondansetron Odt [Zofran ODT] 4 mg SL DAILY PRN 03/30/22 06/23/22 RX: Propranolol HCl [Inderal] 60 mg PO DAILY 03/30/22 06/23/22 RX: metFORMIN HCL [Glucophage] 1,000 mg PO DAILY 03/30/22 06/23/22 RX: tiZANidine [Zanaflex] 4 mg PO BID PRN 03/30/22 06/23/22 Etonogestrel [Nexplanon] 68 mg 06/22/22 Previous Rx's Medication Instructions Recorded Ibuprofen [Motrin] 800 mg PO Q8HR PRN #30 tab 06/07/22 RX: Albuterol Nebulized [Ventolin 2.5 mg INHALATION Q4H PRN #75 ml 06/07/22 Nebulized] Allergies Allergy/AdvReac Type Severity Reaction Status Date / Time bee pollen Allergy Severe Anaphylaxis Verified 06/23/22 22:28 haloperidol [From Haldol] Allergy Severe QUIT Verified 06/23/22 22:28 BREATHING haloperidol lactate Allergy Severe QUIT Verified 06/23/22 22:28 [From Haldol] BREATHING latex Allergy Severe RASH-THROAT Verified 06/23/22 22:28 CLOSES [place] Allergy Anaphylaxis Verified 06/23/22 22:28 coconut Allergy Anaphylaxis Verified 06/23/22 22:28 morphine Allergy Rash/Hives Verified 06/23/22 22:28 pineapple Allergy Anaphylaxis Verified 06/23/22 22:28 spider venom Allergy Swelling Verified 06/23/22 22:28 Sulfa (Sulfonamide Allergy THROAT Verified 06/23/22 22:28 Antibiotics) SWELLS venom-wasp Allergy Swelling Verified 06/23/22 22:28 venom-wasp protein Allergy Swelling Verified 06/23/22 22:28 promethazine HCl AdvReac Severe Nausea & Verified 06/23/22 22:28 [From Phenergan] Vomiting tramadol AdvReac Severe Nausea & Verified 06/23/22 22:28 Vomiting amoxicillin AdvReac Nausea & Verified 06/23/22 22:28 Vomiting ANTS AdvReac Mild Anaphylaxis Uncoded 06/23/22 22:28 Review of Systems ROS Statement: Those systems with pertinent positive or pertinent negative responses have been documented in the HPI. ROS Other: All systems not noted in ROS Statement are negative. Past Medical History Past Medical History: Asthma, Diabetes Mellitus, GERD/Reflux Additional Past Medical History / Comment(s): migraines, degenerative disk disease, endometriosis, lupus, pancreatitis, DM2- insulin History of Any Multi-Drug Resistant Organisms: None Reported Past Surgical History: Cholecystectomy, Orthopedic Surgery Additional Past Surgical History / Comment(s): laparoscopc surgery for endometriosis, cyst removed from left foot, EGD, Past Anesthesia/Blood Transfusion Reactions: Previous Problems w/ Anesthesia Additional Past Anesthesia/Blood Transfusion Reaction / Comment(s): hard to wake up for 48-72 hours after laparoscopic surgery-was in hosp. for 3 days Past Psychological History: Anxiety, Depression, PTSD Smoking Status: Former smoker - Past Family History Mother Family Medical History: No Reported History Additional Family Medical History / Comment(s): hx migraines Father Family Medical History: Coronary Artery Disease (CAD), Hypertension Additional Family Medical History / Comment(s): ddd, alcoholism & drug use General Exam Limitations: no limitations General appearance: alert, in no apparent distress Head exam: Present: atraumatic, normocephalic, normal inspection Respiratory exam: Present: normal lung sounds bilaterally. Absent: respiratory distress, wheezes, rales, rhonchi, stridor Cardiovascular Exam: Present: regular rate, normal rhythm, normal heart sounds. Absent: systolic murmur, diastolic murmur, rubs, gallop, clicks GI/Abdominal exam: Present: soft, tenderness (LUQ), normal bowel sounds. Absent: distended Neurological exam: Present: alert, oriented X3, CN II-XII intact Psychiatric exam: Present: normal affect, normal mood Skin exam: Present: warm, dry, intact, normal color. Absent: rash Course Vital Signs 06/23/22 06/24/22 22:28 02:54 Temperature 97.8 F Pulse Rate 108 H 80 Respiratory 18 17 Rate Blood Pressure 137/90 180/99 O2 Sat by Pulse 98 99 Oximetry Medical Decision Making - Medical Decision Making This is a 31-year-old female who presents to the emergency department for abdominal pain. Was pt. sent in by a medical professional or institution? @ -No Did you speak to anyone other than the patient for history? @ -No Did you review nursing and triage notes? @ -Yes, and I agree, it is accurate with regards to the patient's symptoms. Were old charts reviewed? @ -No Differential Diagnosis? @ -Differential Abdominal Pain Women: Appendicitis, diverticulosis, ischemic bowel, pancreatitis, hepatitis, UTI, gastroenteritis, AAA, incarcerated hernia, bowel obstruction, constipation, inflammatory bowel, hepatitis, peptic ulcer disease, splenic infarction, perforated viscus, vulvitis, ovarian torsion, PID, kidney stone, placenta abruption, this is not meant to be an all-inclusive list What testing was considered but not performed? (CT, X-rays, U/S, labs)? Why? @ -None What meds were considered but not given? Why? @ -None Did you discuss the management of the patient with other professionals? @ -No Did you reconcile home meds? @ -No Was smoking cessation discussed for >3mins.? @ -No Was critical care preformed (if so, how long)? @ -No Were there social determinants of health that impacted care today? How? (Ho melessness, low income, unemployed, alcoholism, drug addiction, transportation, low edu. Level, literacy, decrease access to med. care, prison, rehab)? @ -No Was there de-escalation of care discussed even if they declined? (Discuss DNR or withdrawal of care, Hospice)? @ -No What co-morbidities impacted this encounter? (DM, HTN, Smoking, COPD, CAD, Cancer, CVA, Hep., AIDS, mental health diagnosis, sleep apnea, morbid obesity)? @ -DM, chronic pancreatitis Was patient admitted / discharged? @ -Discharged. Lab work obtained revealing elevated blood sugar. This was initially 405 and rechecked at 337. Acetone negative. 5 units of insulin was administered. Pancreatic enzymes are mildly elevated but not to the point to suggest an acute pancreatitis attack. Symptoms well controlled in the emergency department. Patient discharged home in stable condition. Undiagnosed new problem with uncertain prognosis? @ -None Drug Therapy requiring intensive monitoring for toxicity (Heparin, Nitro, Insulin, Cardizem)? @ -None Were any procedures done? @ -None Diagnosis/symptom? @ -Chronic pancreatitis, DM Acute, or Chronic, or Acute on Chronic? @ -Chronic Uncomplicated (without systemic symptoms) or Complicated (systemic symptoms)? @ -Uncomplicated Side effects of treatment? @ -None Exacerbation, Progression, or Severe Exacerbation] @ -Stable Poses a threat to life or bodily function? @ -No Return precautions reviewed in depth, the patient is instructed to return to the emergency department with any new, worsening, or concerning symptoms. Patient verbalized understanding. This case was discussed in detail with the attending ED physician, Dr. Lopez. Presentation, findings, and treatment plan discussed in detail as well. - Lab Data Result diagrams: 06/24/22 01:13 06/24/22 01:13 Lab Results 06/23/22 06/24/22 06/24/22 Range/Units 22:32 01:13 01:13 WBC 9.0 (3.8-10.6) k/uL RBC 4.02 (3.80-5.40) m/uL Hgb 11.7 (11.4-16.0) gm/dL Hct 35.8 (34.0-46.0) % MCV 89.0 (80.0-100.0) fL MCH 29.1 (25.0-35.0) pg MCHC 32.7 (31.0-37.0) g/dL RDW 15.5 (11.5-15.5) % Plt Count 280 (150-450) k/uL MPV 8.1 Neutrophils % 88 % Lymphocytes % 9 % Monocytes % 3 % Eosinophils % 0 % Basophils % 0 % Neutrophils # 7.9 H (1.3-7.7) k/uL Lymphocytes # 0.8 L (1.0-4.8) k/uL Monocytes # 0.3 (0-1.0) k/uL Eosinophils # 0.0 (0-0.7) k/uL Basophils # 0.0 (0-0.2) k/uL Sodium 134 L (137-145) mmol/L Potassium 4.2 (3.5-5.1) mmol/L Chloride 104 (98-107) mmol/L Carbon Dioxide 20 L (22-30) mmol/L Anion Gap 10 mmol/L BUN 14 (7-17) mg/dL Creatinine 0.65 (0.52-1.04) mg/dL Est GFR (CKD-EPI)AfAm >90 (>60 ml/min/1.73 sqM) Est GFR (CKD-EPI)NonAf >90 (>60 ml/min/1.73 sqM) Glucose 337 H (74-99) mg/dL POC Glucose (mg/dL) 405 H (70-110) mg/dL POC Glu [employer] Judge ID Dionicio Carrera Calcium 9.9 (8.4-10.2) mg/dL Total Bilirubin 0.3 (0.2-1.3) mg/dL AST 18 (14-36) U/L ALT 24 (4-34) U/L Alkaline Phosphatase 78 (38-126) U/L Total Protein 7.4 (6.3-8.2) g/dL Albumin 4.1 (3.5-5.0) g/dL Amylase 50 (30-110) U/L Lipase 482 H (23-300) U/L Urine Color Urine Appearance (Clear) Urine pH (5.0-8.0) Ur Specific Ryder (1.001-1.035) Urine Protein (Negative) Urine Glucose (UA) (Negative) Urine Ketones (Negative) Urine Blood (Negative) Urine Nitrite (Negative) Urine Bilirubin (Negative) Urine Urobilinogen (<2.0) mg/dL Ur Leukocyte Esterase (Negative) Urine HCG, Qual (Not Detectd) Acetone, Qual Negative (Negative) 06/24/22 06/24/22 06/24/22 Range/Units 01:13 01:13 02:18 WBC (3.8-10.6) k/uL RBC (3.80-5.40) m/uL Hgb (11.4-16.0) gm/dL Hct (34.0-46.0) % MCV (80.0-100.0) fL MCH (25.0-35.0) pg MCHC (31.0-37.0) g/dL RDW (11.5-15.5) % Plt Count (150-450) k/uL MPV Neutrophils % % Lymphocytes % % Monocytes % % Eosinophils % % Basophils % % Neutrophils # (1.3-7.7) k/uL Lymphocytes # (1.0-4.8) k/uL Monocytes # (0-1.0) k/uL Eosinophils # (0-0.7) k/uL Basophils # (0-0.2) k/uL Sodium (137-145) mmol/L Potassium (3.5-5.1) mmol/L Chloride (98-107) mmol/L Carbon Dioxide (22-30) mmol/L Anion Gap mmol/L BUN (7-17) mg/dL Creatinine (0.52-1.04) mg/dL Est GFR (CKD-EPI)AfAm (>60 ml/min/1.73 sqM) Est GFR (CKD-EPI)NonAf (>60 ml/min/1.73 sqM) Glucose (74-99) mg/dL POC Glucose (mg/dL) 296 H (70-110) mg/dL POC Glu [employer] Judge ID Cindy Hooker Calcium (8.4-10.2) mg/dL Total Bilirubin (0.2-1.3) mg/dL AST (14-36) U/L ALT (4-34) U/L Alkaline Phosphatase (38-126) U/L Total Protein (6.3-8.2) g/dL Albumin (3.5-5.0) g/dL Amylase (30-110) U/L Lipase (23-300) U/L Urine Color Light Yellow Urine Appearance Clear (Clear) Urine pH 6.0 (5.0-8.0) Ur Specific Ryder 1.040 H (1.001-1.035) Urine Protein Negative (Negative) Urine Glucose (UA) 4+ H (Negative) Urine Ketones Negative (Negative) Urine Blood Negative (Negative) Urine Nitrite Negative (Negative) Urine Bilirubin Negative (Negative) Urine Urobilinogen <2.0 (<2.0) mg/dL Ur Leukocyte Esterase Negative (Negative) Urine HCG, Qual Not Detected (Not Detectd) Acetone, Qual (Negative) 06/24/22 Range/Units 03:16 WBC (3.8-10.6) k/uL RBC (3.80-5.40) m/uL Hgb (11.4-16.0) gm/dL Hct (34.0-46.0) % MCV (80.0-100.0) fL MCH (25.0-35.0) pg MCHC (31.0-37.0) g/dL RDW (11.5-15.5) % Plt Count (150-450) k/uL MPV Neutrophils % % Lymphocytes % % Monocytes % % Eosinophils % % Basophils % % Neutrophils # (1.3-7.7) k/uL Lymphocytes # (1.0-4.8) k/uL Monocytes # (0-1.0) k/uL Eosinophils # (0-0.7) k/uL Basophils # (0-0.2) k/uL Sodium (137-145) mmol/L Potassium (3.5-5.1) mmol/L Chloride (98-107) mmol/L Carbon Dioxide (22-30) mmol/L Anion Gap mmol/L BUN (7-17) mg/dL Creatinine (0.52-1.04) mg/dL Est GFR (CKD-EPI)AfAm (>60 ml/min/1.73 sqM) Est GFR (CKD-EPI)NonAf (>60 ml/min/1.73 sqM) Glucose (74-99) mg/dL POC Glucose (mg/dL) 239 H (70-110) mg/dL POC Glu [employer] Judge ID Dionicio Schwartz Calcium (8.4-10.2) mg/dL Total Bilirubin (0.2-1.3) mg/dL AST (14-36) U/L ALT (4-34) U/L Alkaline Phosphatase (38-126) U/L Total Protein (6.3-8.2) g/dL Albumin (3.5-5.0) g/dL Amylase (30-110) U/L Lipase (23-300) U/L Urine Color Urine Appearance (Clear) Urine pH (5.0-8.0) Ur Specific Ryder (1.001-1.035) Urine Protein (Negative) Urine Glucose (UA) (Negative) Urine Ketones (Negative) Urine Blood (Negative) Urine Nitrite (Negative) Urine Bilirubin (Negative) Urine Urobilinogen (<2.0) mg/dL Ur Leukocyte Esterase (Negative) Urine HCG, Qual (Not Detectd) Acetone, Qual (Negative) Disposition Clinical Impression: Abdominal pain, DM type 2 (diabetes mellitus, type 2) Disposition: HOME SELF-CARE Instructions (If sedation given, give patient instructions): Abdominal Pain (ED) Additional Instructions: Return to the emergency department with any new, worsening, or concerning symptoms. Follow up with your primary care provider in 1-2 days. Is patient prescribed a controlled substance at d/c from ED?: No Referrals: Isi Carolina MD [Primary Care Provider] - 1-2 days
[2022-06-24 01:45] LABS: Appearance,Urine Clear (Clear); Bilirubin,Urine Negative (Negative); Blood,Urine Negative (Negative); Color,Urine Light Yellow; Glucose,Urine (UA) 4+ (Negative); Ketones,Urine Negative (Negative); Leukocyte Esterase,Urine Negative (Negative); Nitrite,Urine Negative (Negative); Protein,Urine Negative (Negative); Urobilinogen,Urine <2.0 mg/dL (<2.0)
[2022-06-24 02:09] LABS: Basophils % (A) 0 %; Eosinophils % (A) 0 %; HCT 35.8 % (34.0-46.0); HGB 11.7 gm/dL (11.4-16.0); Lymphocytes # (A) 0.8 k/uL (1.0-4.8); Lymphocytes % (A) 9 %; MCH 29.1 pg (25.0-35.0); MCHC 32.7 g/dL (31.0-37.0); Mean Platelet Volume 8.1; Monocytes # (A) 0.3 k/uL (0-1.0); Monocytes % (A) 3 %; Neutrophils # (A) 7.9 k/uL (1.3-7.7); Neutrophils % (A) 88 %; Platelet Count 280 k/uL (150-450); RBC 4.02 m/uL (3.80-5.40); RDW 15.5 % (11.5-15.5)
[2022-06-24] MEDS ORDERED: INSULIN REGULAR 100 UNIT/ML VIAL (IV) IV ONE (02:11)
[2022-06-24 02:20] LABS: Glucose,Whole Blood 296 mg/dL (70-110)
[2022-06-24] MEDS ORDERED: ACETAMINOPHEN TAB 500 MG TAB PO STA (02:24)
[2022-06-24 02:54] VITALS: BP 180/99; PULSE 80; RESP 17
[2022-06-24 03:18] LABS: Glucose,Whole Blood 239 mg/dL (70-110)
== END 2022-06-24 03:35 | disposition home or self-care (01) ==
LOC: EC 22:07
DX: E11.65 Type 2 diabetes mellitus with hyperglycemia (principal); R10.9 Unspecified abdominal pain; F32.A Depression, unspecified; F41.9 Anxiety disorder, unspecified; J45.909 Unspecified asthma, uncomplicated; K21.9 Gastro-esophageal reflux disease without esophagitis; Z79.1 Long term (current) use of non-steroidal anti-inflammatories (NSAID); Z79.4 Long term (current) use of insulin; Z79.84 Long term (current) use of oral hypoglycemic drugs; Z79.899 Other long term (current) drug therapy; Z87.891 Personal history of nicotine dependence; Z88.0 Allergy status to penicillin; Z88.1 Allergy status to other antibiotic agents; Z88.2 Allergy status to sulfonamides; Z88.5 Allergy status to narcotic agent; Z88.8 Allergy status to other drugs, medicaments and biological substances; Z91.030 Bee allergy status; Z91.040 Latex allergy status
CPT/HCPCS: 36415 ×2; 80053; 82150; 82009; 83690; 85025; 81003; 81025; 99284; 96374; 96375 ×2; 96376; J1200; J2405; J1885

== ENCOUNTER 2022-06-26 22:12 | Emergency (ER) | payer BC, OTHER ==
[2022-06-26 22:16] VITALS: BP 168/93; TEMP 98.7
[2022-06-26] MEDS ORDERED: KETOROLAC 15 MG/ML 1 ML VIAL IVP STA (23:46)
[2022-06-26] MEDS ORDERED: diphenhydrAMINE 50 MG/ML 1 ML VIAL IVP STA (23:46)
[2022-06-26] MEDS ORDERED: SODIUM CHLORIDE 0.9% 1,000 ML IV STA (23:46)
--- NOTE | 2022-06-26 23:50 | ED ---
Abdominal Pain HPI - General Chief Complaint: Abdominal Pain Stated Complaint: Abdominal Pain Time Seen by Provider: 06/26/22 23:27 Source: patient, RN notes reviewed, old records reviewed Mode of arrival: ambulatory Limitations: no limitations - History of Present Illness Initial Comments: This is a nontoxic appearing 31-year-old female that presents with complaints of 2 hours of left upper quadrant pain sharp in nature with nausea. States that she was seen in the emergency room a couple of days ago with similar pain and it never completely went away. States her nephew drove her to the hospital tonight. Denies any fevers. No dysuria. No cough. No vomiting or diarrhea. patient does have a history of pancreatitis, diabetes and cholecystectomy. MD Complaint: abdominal pain -: hour(s) (2) Location: LUQ Radiation: none Severity scale (1-10): 10 Quality: sharp Consistency: constant Improves With: nothing Associated Symptoms: nausea - Related Data Home Medications Medication Instructions Recorded Confirmed ARIPiprazole IM SYRINGE [Abilify 400 mg IM Q30D 07/28/21 06/23/22 Maintena Syringe] Ibuprofen [Motrin] 800 mg PO Q8H PRN 11/16/21 06/23/22 Omeprazole 20 mg PO DAILY 11/16/21 06/23/22 QUEtiapine FUMARATE [SEROquel XR] 600 mg PO HS 11/16/21 06/23/22 Acetaminophen [Tylenol Extra 500 mg PO Q4H PRN 03/30/22 06/23/22 Strength] Insulin Aspart [NovoLOG Flexpen] See Protocol SQ DIRECTED 03/30/22 06/23/22 Insulin Glargine,Hum.rec.anlog 45 units SQ DAILY 03/30/22 06/23/22 [Lantus Solostar Pen] Naproxen [Naprosyn] 500 mg PO BID 03/30/22 06/23/22 Ondansetron Odt [Zofran ODT] 4 mg SL DAILY PRN 03/30/22 06/23/22 Propranolol HCl [Inderal] 60 mg PO DAILY 03/30/22 06/23/22 metFORMIN HCL [Glucophage] 1,000 mg PO DAILY 03/30/22 06/23/22 tiZANidine [Zanaflex] 4 mg PO BID PRN 03/30/22 06/23/22 Etonogestrel [Nexplanon] 68 mg 06/22/22 Previous Rx's Medication Instructions Recorded Albuterol Nebulized [Ventolin 2.5 mg INHALATION Q4H PRN #75 ml 06/07/22 Nebulized] Ibuprofen [Motrin] 800 mg PO Q8HR PRN #30 tab 06/07/22 Allergies Allergy/AdvReac Type Severity Reaction Status Date / Time bee pollen Allergy Severe Anaphylaxis Verified 06/26/22 22:16 haloperidol [From Haldol] Allergy Severe QUIT Verified 06/26/22 22:16 BREATHING haloperidol lactate Allergy Severe QUIT Verified 06/26/22 22:16 [From Haldol] BREATHING latex Allergy Severe RASH-THROAT Verified 06/26/22 22:16 CLOSES [place] Allergy Anaphylaxis Verified 06/26/22 22:16 coconut Allergy Anaphylaxis Verified 06/26/22 22:16 morphine Allergy Rash/Hives Verified 06/26/22 22:16 pineapple Allergy Anaphylaxis Verified 06/26/22 22:16 spider venom Allergy Swelling Verified 06/26/22 22:16 Sulfa (Sulfonamide Allergy THROAT Verified 06/26/22 22:16 Antibiotics) SWELLS venom-wasp Allergy Swelling Verified 06/26/22 22:16 venom-wasp protein Allergy Swelling Verified 06/26/22 22:16 promethazine HCl AdvReac Severe Nausea & Verified 06/26/22 22:16 [From Phenergan] Vomiting tramadol AdvReac Severe Nausea & Verified 06/26/22 22:16 Vomiting amoxicillin AdvReac Nausea & Verified 06/26/22 22:16 Vomiting ANTS AdvReac Mild Anaphylaxis Uncoded 06/26/22 22:16 Review of Systems ROS Statement: Those systems with pertinent positive or pertinent negative responses have been documented in the HPI. ROS Other: All systems not noted in ROS Statement are negative. Past Medical History Past Medical History: Asthma, Diabetes Mellitus, GERD/Reflux Additional Past Medical History / Comment(s): migraines, degenerative disk disease, endometriosis, lupus, pancreatitis, DM2- insulin History of Any Multi-Drug Resistant Organisms: None Reported Past Surgical History: Cholecystectomy, Orthopedic Surgery Additional Past Surgical History / Comment(s): laparoscopc surgery for endometriosis, cyst removed from left foot, EGD, Past Anesthesia/Blood Transfusion Reactions: Previous Problems w/ Anesthesia Additional Past Anesthesia/Blood Transfusion Reaction / Comment(s): hard to wake up for 48-72 hours after laparoscopic surgery-was in hosp. for 3 days Past Psychological History: Anxiety, Depression, PTSD Smoking Status: Former smoker Past Alcohol Use History: None Reported Past Drug Use History: None Reported - Past Family History Mother Family Medical History: No Reported History Additional Family Medical History / Comment(s): hx migraines Father Family Medical History: Coronary Artery Disease (CAD), Hypertension Additional Family Medical History / Comment(s): ddd, alcoholism & drug use General Exam Limitations: no limitations General appearance: alert, in no apparent distress Head exam: Present: atraumatic Eye exam: Absent: scleral icterus, conjunctival injection, periorbital swelling ENT exam: Present: mucous membranes moist, other (poor dentition) Neck exam: Present: full ROM. Absent: tenderness, meningismus, lymphadenopathy Respiratory exam: Present: normal lung sounds bilaterally. Absent: respiratory distress, accessory muscle use Cardiovascular Exam: Present: tachycardia GI/Abdominal exam: Present: soft, tenderness (LUQ). Absent: distended, guarding, rebound, rigid Extremities exam: Present: normal capillary refill. Absent: pedal edema Back exam: Absent: tenderness, CVA tenderness (R), CVA tenderness (L), rash noted Neurological exam: Present: alert, oriented X3, normal gait Psychiatric exam: Present: normal affect, normal mood Skin exam: Present: warm, dry, normal color. Absent: cyanosis, diaphoretic, petechiae, pallor Course Vital Signs 06/26/22 22:13 Temperature 98.7 F Pulse Rate 128 H Respiratory 24 Rate Blood Pressure 168/93 O2 Sat by Pulse 99 Oximetry - Reevaluation(s) Reevaluation #1: 06/27/22 02:03 patient is currently asleep on her left side. She was awoken and notified of labs results and plan to d/c Time: 02:03 Medical Decision Making - Medical Decision Making Patient states that she is working with a doctor at the [facility] regarding her chronic pancreatitis and abdominal pain. States had labs drawn in March and she is awaiting to hear the results. Today her CBC is unremarkable. Electrolytes show a lipase of 801 up from 480 two days ago. Case discussed with Dr. Avalos and patient will be discharged home and directed to return to the emergency room with any worsening symptoms. She was given IV fluids, Toradol and Benadryl. She was directed to adhere to a clear liquid diet for the next 24 hours. Advance her diet as directed. She is requesting additional pain medication. Patient's guardian contacted hospital stating no narcotics. I did explain this to the patient. Was pt. sent in by a medical professional or institution (, SADE, FLIGHT FOLLOWER, urgent care, hospital, or fci...) When possible be specific @ -[No] Did you speak to anyone other than the patient for history (EMS, parent, family, police, friend...)? What history was obtained from this source @ -[No] Did you review nursing and triage notes (agree or disagree)? Why? @ -[I reviewed and agree with nursing and triage notes] Were old charts reviewed (outside hosp., previous admission, EMS record, old EKG, old radiological studies, urgent care reports/EKG's, fci records)? Report findings @ yes previous ER visits and labs as above Differential Diagnosis (chest pain, altered mental status, abdominal pain women, abdominal pain men, vaginal bleeding, weakness, fever, dyspnea, syncope, headache, dizziness, GI bleed, back pain, seizure, CVA, palpatations, mental health, musculoskeletal)? @ Differential Abdominal Pain Women: Appendicitis, Cholecystitis, diverticulosis, ischemic bowel, pancreatitis, hepatitis, UTI, gastroenteritis, AAA, incarcerated hernia, bowel obstruction, constipation, inflammatory bowel, hepatitis, peptic ulcer disease, splenic infarction, perforated viscus, vulvitis, ovarian torsion, PID, kidney stone, placenta abruption, this is not meant to be an all-inclusive list EKG interpreted by me (3pts min.). @ n/a X-rays interpreted by me (1pt min.). @ -[None done] CT interpreted by me (1pt min.). @ -[None done] U/S interpreted by me (1pt. min.). @ -[None done] What testing was considered but not performed or refused? (CT, X-rays, U/S, labs)? Why? @ -[None] What meds were considered but not given or refused? Why? @ narcotics were considered however there is concern for drug-seeking behavior and patient's guardian requested no narcotics be prescribed or administered Did you discuss the management of the patient with other professionals (professionals i.e. , PA, FLIGHT FOLLOWER, lab, RT, psych nurse, social media job titles, compensation specialist, teacher, control officer, case assembler)? Give summary @ -[No] Was smoking cessation discussed for >3mins.? @ -[No] Was critical care preformed (if so, how long)? @ -[No] Were there social determinants of health that impacted care today? How? (Homelessness, low income, unemployed, alcoholism, drug addiction, transportation, low edu. Level, literacy, decrease access to med. care, snf, rehab)? @ -[No] Was there de-escalation of care discussed even if they declined (Discuss DNR or withdrawal of care, Hospice)? DNR status @ -[No] What co-morbidities impacted this encounter? (DM, HTN, Smoking, COPD, CAD, Cancer, CVA, ARF, Chemo, Hep., AIDS, mental health diagnosis, sleep apnea, morbid obesity)? @ asthma, diabetes, GERD Was patient admitted / discharged? Hospital course, mention meds given and route, prescriptions, significant lab abnormalities, going to OR and other pertinent info. @ -discharged Undiagnosed new problem with uncertain prognosis? @ -[No] Drug Therapy requiring intensive monitoring for toxicity (Heparin, Nitro, Insulin, Cardizem)? @ -[No] Were any procedures done? @ -[No] Diagnosis/symptom? @ abdominal pain Acute, or Chronic, or Acute on Chronic? @ acute on chronic Uncomplicated (without systemic symptoms) or Complicated (systemic symptoms)? @ uncomplicated Side effects of treatment? @ -[No] Exacerbation, Progression, or Severe Exacerbation? @ -[No] Poses a threat to life or bodily function? How? (Chest pain, USA, DE, pneumonia, PE, COPD, DKA, ARF, appy, cholecystitis, CVA, Diverticulitis, Homicidal, Suicidal, threat to staff... and all critical care pts) @ -[No] - Lab Data Result diagrams: 06/26/22 23:55 06/26/22 23:55 Lab Results 06/26/22 06/26/22 06/26/22 Range/Units 23:55 23:55 23:55 WBC 9.1 (3.8-10.6) k/uL RBC 4.48 (3.80-5.40) m/uL Hgb 13.1 (11.4-16.0) gm/dL Hct 39.3 (34.0-46.0) % MCV 87.7 (80.0-100.0) fL MCH 29.1 (25.0-35.0) pg MCHC 33.2 (31.0-37.0) g/dL RDW 15.0 (11.5-15.5) % Plt Count 314 (150-450) k/uL MPV 7.9 Neutrophils % 59 % Lymphocytes % 32 % Monocytes % 4 % Eosinophils % 4 % Basophils % 0 % Neutrophils # 5.3 (1.3-7.7) k/uL Lymphocytes # 2.9 (1.0-4.8) k/uL Monocytes # 0.4 (0-1.0) k/uL Eosinophils # 0.4 (0-0.7) k/uL Basophils # 0.0 (0-0.2) k/uL Sodium 133 L (137-145) mmol/L Potassium 4.4 (3.5-5.1) mmol/L Chloride 104 (98-107) mmol/L Carbon Dioxide 22 (22-30) mmol/L Anion Gap 7 mmol/L BUN 16 (7-17) mg/dL Creatinine 0.61 (0.52-1.04) mg/dL Est GFR (CKD-EPI)AfAm >90 (>60 ml/min/1.73 sqM) Est GFR (CKD-EPI)NonAf >90 (>60 ml/min/1.73 sqM) Glucose 207 H (74-99) mg/dL Plasma Lactic Acid Aurelio 2.0 (0.7-2.0) mmol/L Calcium 9.9 (8.4-10.2) mg/dL Total Bilirubin 0.5 (0.2-1.3) mg/dL AST 16 (14-36) U/L ALT 17 (4-34) U/L Alkaline Phosphatase 92 (38-126) U/L Total Protein 6.9 (6.3-8.2) g/dL Albumin 3.7 (3.5-5.0) g/dL Lipase 801 H (23-300) U/L Disposition Clinical Impression: Abdominal pain Disposition: HOME SELF-CARE Condition: Good Instructions (If sedation given, give patient instructions): Abdominal Pain (ED) Additional Instructions: Clear liquid diet for the next 24 hours. Then eat small low fat meals over the next 3-6 days. Avoid all alcohol. Follow-up with the primary care doctor on Wednesday. return to the emergency room with any new or concerning symptoms. Is patient prescribed a controlled substance at d/c from ED?: No Referrals: Isi Carolina MD [Primary Care Provider] - 1-2 days Time of Disposition: 01:57
[2022-06-27 01:30] LABS: ALT 17 U/L (4-34); AST 16 U/L (14-36); African American GFR (CKD) >90 (>60 ml/min/1.73 sqM); Albumin 3.7 g/dL (3.5-5.0); Alkaline Phosphatase 92 U/L (38-126); Anion Gap 7 mmol/L; Blood Urea Nitrogen 16 mg/dL (7-17); Calcium 9.9 mg/dL (8.4-10.2); Carbon Dioxide 22 mmol/L (22-30); Chloride 104 mmol/L (98-107); Glucose 207 mg/dL (74-99); Lipase 801 U/L (23-300); Non-African American GFR(CKD) >90 (>60 ml/min/1.73 sqM); Potassium 4.4 mmol/L (3.5-5.1); Sodium 133 mmol/L (137-145); Total Bilirubin 0.5 mg/dL (0.2-1.3); Total Protein 6.9 g/dL (6.3-8.2)
[2022-06-27 01:32] LABS: Basophils % (A) 0 %; Eosinophils # (A) 0.4 k/uL (0-0.7); Eosinophils % (A) 4 %; HCT 39.3 % (34.0-46.0); HGB 13.1 gm/dL (11.4-16.0); Lymphocytes # (A) 2.9 k/uL (1.0-4.8); Lymphocytes % (A) 32 %; MCH 29.1 pg (25.0-35.0); MCHC 33.2 g/dL (31.0-37.0); MCV 87.7 fL (80.0-100.0); Mean Platelet Volume 7.9; Monocytes # (A) 0.4 k/uL (0-1.0); Monocytes % (A) 4 %; Neutrophils # (A) 5.3 k/uL (1.3-7.7); Neutrophils % (A) 59 %; Platelet Count 314 k/uL (150-450); RBC 4.48 m/uL (3.80-5.40); WBC 9.1 k/uL (3.8-10.6)
[2022-06-27 02:13] VITALS: PULSE 100; RESP 14
== END 2022-06-27 02:13 | disposition home or self-care (01) ==
LOC: EC 22:12
DX: R10.12 Left upper quadrant pain (principal); J45.909 Unspecified asthma, uncomplicated; E11.9 Type 2 diabetes mellitus without complications; K21.9 Gastro-esophageal reflux disease without esophagitis; F41.9 Anxiety disorder, unspecified; F32.A Depression, unspecified; Z87.891 Personal history of nicotine dependence; Z79.4 Long term (current) use of insulin; Z79.899 Other long term (current) drug therapy; Z91.030 Bee allergy status; Z91.040 Latex allergy status; Z91.018 Allergy to other foods; Z88.6 Allergy status to analgesic agent; Z88.5 Allergy status to narcotic agent; Z88.8 Allergy status to other drugs, medicaments and biological substances; Z79.84 Long term (current) use of oral hypoglycemic drugs; Z88.0 Allergy status to penicillin; Z88.1 Allergy status to other antibiotic agents; Z88.2 Allergy status to sulfonamides
CPT/HCPCS: 96374 ×2; 96375 ×2; 96361 ×2; 99284 ×2; 36415; 80053; 83605; 83690; 85025; J1200; J1885

== ENCOUNTER 2022-07-04 02:55 | Emergency (ER) | payer BC, OTHER ==
[2022-07-04 03:02] VITALS: BP 142/104; PULSE 136; RESP 20; TEMP 97.5
[2022-07-04] MEDS ORDERED: KETOROLAC 15 MG/ML 1 ML VIAL IM STA ×2 (03:40→04:54)
[2022-07-04] MEDS ORDERED: diphenhydrAMINE 50 MG/ML 1 ML VIAL IM STA (03:40)
[2022-07-04] MEDS ORDERED: ONDANSETRON ODT 4 MG TAB PO STA (03:40)
--- NOTE | 2022-07-04 04:55 | ED ---
General Adult HPI - General Chief complaint: Abdominal Pain Stated complaint: Abd Pain Time Seen by Provider: 07/04/22 03:16 Source: patient, RN notes reviewed, old records reviewed Mode of arrival: ambulatory Limitations: no limitations - History of Present Illness Initial comments: Patient is a 31-year-old female well known to our emergency Department complaining of her normal abdominal pain. He is on a pain management plan where she receives Toradol and Benadryl. States the pain is not any abnormal compared to her normal pain. States she woke up with it earlier this morning which is why she presents for evaluation. Patient did have recent laboratory studies done on her last visit last week. There were within her baseline. She has no new complaints at this time. Is seeking pain medications. Denies any nausea, vomiting, diarrhea, fevers, chills, chest pain, shortness breath. No other acute complaints at this time. Patient states this is her normal chronic abdominal pain. - Related Data Home Medications Medication Instructions Recorded Confirmed ARIPiprazole IM SYRINGE [Abilify 400 mg IM Q30D 07/28/21 06/23/22 Maintena Syringe] Ibuprofen [Motrin] 800 mg PO Q8H PRN 11/16/21 06/23/22 Omeprazole 20 mg PO DAILY 11/16/21 06/23/22 QUEtiapine FUMARATE [SEROquel XR] 600 mg PO HS 11/16/21 06/23/22 Acetaminophen [Tylenol Extra 500 mg PO Q4H PRN 03/30/22 06/23/22 Strength] Insulin Aspart [NovoLOG Flexpen] See Protocol SQ DIRECTED 03/30/22 06/23/22 Insulin Glargine,Hum.rec.anlog 45 units SQ DAILY 03/30/22 06/23/22 [Lantus Solostar Pen] Naproxen [Naprosyn] 500 mg PO BID 03/30/22 06/23/22 Ondansetron Odt [Zofran ODT] 4 mg SL DAILY PRN 03/30/22 06/23/22 Propranolol HCl [Inderal] 60 mg PO DAILY 03/30/22 06/23/22 metFORMIN HCL [Glucophage] 1,000 mg PO DAILY 03/30/22 06/23/22 tiZANidine [Zanaflex] 4 mg PO BID PRN 03/30/22 06/23/22 Etonogestrel [Nexplanon] 68 mg 06/22/22 Previous Rx's Medication Instructions Recorded Albuterol Nebulized [Ventolin 2.5 mg INHALATION Q4H PRN #75 ml 06/07/22 Nebulized] Ibuprofen [Motrin] 800 mg PO Q8HR PRN #30 tab 06/07/22 Allergies Allergy/AdvReac Type Severity Reaction Status Date / Time bee pollen Allergy Severe Anaphylaxis Verified 06/26/22 22:16 haloperidol [From Haldol] Allergy Severe QUIT Verified 06/26/22 22:16 BREATHING haloperidol lactate Allergy Severe QUIT Verified 06/26/22 22:16 [From Haldol] BREATHING latex Allergy Severe RASH-THROAT Verified 06/26/22 22:16 CLOSES [place] Allergy Anaphylaxis Verified 06/26/22 22:16 coconut Allergy Anaphylaxis Verified 06/26/22 22:16 morphine Allergy Rash/Hives Verified 06/26/22 22:16 pineapple Allergy Anaphylaxis Verified 06/26/22 22:16 spider venom Allergy Swelling Verified 06/26/22 22:16 Sulfa (Sulfonamide Allergy THROAT Verified 06/26/22 22:16 Antibiotics) SWELLS venom-wasp Allergy Swelling Verified 06/26/22 22:16 venom-wasp protein Allergy Swelling Verified 06/26/22 22:16 promethazine HCl AdvReac Severe Nausea & Verified 06/26/22 22:16 [From Phenergan] Vomiting tramadol AdvReac Severe Nausea & Verified 06/26/22 22:16 Vomiting amoxicillin AdvReac Nausea & Verified 06/26/22 22:16 Vomiting ANTS AdvReac Mild Anaphylaxis Uncoded 06/26/22 22:16 Review of Systems ROS Statement: Those systems with pertinent positive or pertinent negative responses have been documented in the HPI. Review of Systems: CONST: Denies fever EYES: Denies blurry vision ENT: Denies nasal congestion C/V: Denies Chest pain RESP: Denies shortness of breath GI: Endorses chronic abdominal pain : Denies dysuria SKIN: Denies rash. MSK: Denies joint pain. NEURO: Denies headache ROS Other: All systems not noted in ROS Statement are negative. Past Medical History Past Medical History: Asthma, Diabetes Mellitus, GERD/Reflux Additional Past Medical History / Comment(s): migraines, degenerative disk disease, endometriosis, lupus, pancreatitis, DM2- insulin History of Any Multi-Drug Resistant Organisms: None Reported Past Surgical History: Cholecystectomy, Orthopedic Surgery Additional Past Surgical History / Comment(s): laparoscopc surgery for endometriosis, cyst removed from left foot, EGD, Past Anesthesia/Blood Transfusion Reactions: Previous Problems w/ Anesthesia Additional Past Anesthesia/Blood Transfusion Reaction / Comment(s): hard to wake up for 48-72 hours after laparoscopic surgery-was in hosp. for 3 days Past Psychological History: Anxiety, Depression, PTSD Smoking Status: Former smoker Past Alcohol Use History: None Reported Past Drug Use History: None Reported - Past Family History Mother Family Medical History: No Reported History Additional Family Medical History / Comment(s): hx migraines Father Family Medical History: Coronary Artery Disease (CAD), Hypertension Additional Family Medical History / Comment(s): ddd, alcoholism & drug use General Exam - General Exam Comments Initial Comments: General: Appears in no acute distress. HEAD: Normal with no signs of head trauma. EYES: PERRLA, EOMI, conjunctiva normal, no discharge. ENT: Hearing grossly intact, normal oropharynx. RESPIRATORY: Clear breath sounds bilaterally. No wheezes, rales, or rhonchi. C/V: Tachycardic in triage, normal rate in the room.. S1 and S2 auscultated, no edema, peripheral pulses 2+ and intact throughout ABD: Abd is soft, nontender, nondistended. Patient hasn't respiratory guarding but no actual guarding as it is distractible. No rebound tenderness. No peritoneal signs. EXT: Normal range of motion, no obvious deformity SKIN: No rashes or lesions observed on exposed skin. NEURO: Alert and oriented 4. Limitations: no limitations Course Vital Signs 07/04/22 02:57 Temperature 97.5 F L Pulse Rate 136 H Respiratory 20 Rate Blood Pressure 142/104 O2 Sat by Pulse 97 Oximetry Medical Decision Making - Medical Decision Making Was pt. sent in by a medical professional or institution (, PA, MANAGER PACU, urgent care, hospital, or long term...) When possible be specific @ -No Did you speak to anyone other than the patient for history (EMS, parent, family, police, friend...)? What history was obtained from this source @ -No Did you review nursing and triage notes (agree or disagree)? Why? @ -I reviewed and agree with nursing and triage notes Were old charts reviewed (outside hosp., previous admission, EMS record, old EKG, old radiological studies, urgent care reports/EKG's, long term records)? Report findings @ -Charts were reviewed including ones from recent visit in June 2022 Differential Diagnosis (chest pain, altered mental status, abdominal pain women, abdominal pain men, vaginal bleeding, weakness, fever, dyspnea, syncope, headache, dizziness, GI bleed, back pain, seizure, CVA, palpatations, mental health, musculoskeletal)? @ -Chronic abdominal pain, UTI, pain medication seeking behavior. This list is not all inclusive. EKG interpreted by me (3pts min.). @ -None done X-rays interpreted by me (1pt min.). @ -None done CT interpreted by me (1pt min.). @ -None done U/S interpreted by me (1pt. min.). @ -None done What testing was considered but not performed or refused? (CT, X-rays, U/S, labs)? Why? @ -None What meds were considered but not given or refused? Why? @ -None Did you discuss the management of the patient with other professionals (professionals i.e. , PA, MANAGER PACU, lab, RT, psych nurse, criminal justice social worker, therapy manager, teacher, unarmed security officer, business case analyst)? Give summary @ -No Was smoking cessation discussed for >3mins.? @ -No Was critical care preformed (if so, how long)? @ -No Were there social determinants of health that impacted care today? How? (Homelessness, low income, unemployed, alcoholism, drug addiction, transportation, low edu. Level, literacy, decrease access to med. care, retirement, rehab)? @ -No Was there de-escalation of care discussed even if they declined (Discuss DNR or withdrawal of care, Hospice)? DNR status @ -No What co-morbidities impacted this encounter? (DM, HTN, Smoking, COPD, CAD, Cancer, CVA, ARF, Chemo, Hep., AIDS, mental health diagnosis, sleep apnea, morbid obesity)? @ -None Was patient admitted / discharged? Hospital course, mention meds given and route, prescriptions, significant lab abnormalities, going to OR and other p ertinent info. @ -Based on the patient's presentation and physical exam, she presents complaining of her self stated chronic abdominal pain. Had recent labs that were unchanged from her baseline. She states this is her typical chronic abdominal pain. She is seeking her typical IM injections of Benadryl and Toradol which will be provided. I do not believe the rear require abdominal labs at this time. Patient was tachycardic in triage but at the patient's bedside she is no longer tachycardic on palpation. Heart rate seems to be near 100. She was in agreement with this plan. On reevaluation, patient is feeling improved but is requesting 1 more dose of Toradol prior to discharge. This will be provided. Patient is discharged home at this time. Strict return precau tions discussed. I instructed the patient to follow up with their PCP in the next 1-3 days. I explained that the patient should return to the emergency department if they experience any worsening symptoms. Strict return precautions were discussed with the patient. The patient expressed understanding of these instructions. I answered all questions that the patient had. The patient was discharged home in good condition with their prescriptions and follow up information. Undiagnosed new problem with uncertain prognosis? @ -No Drug Therapy requiring intensive monitoring for toxicity (Heparin, Nitro, Insulin, Cardizem)? @ -No Were any procedures done? @ -No Diagnosis/symptom? @ -Chronic abdominal pain Acute, or Chronic, or Acute on Chronic? @ -Chronic Uncomplicated (without systemic symptoms) or Complicated (systemic symptoms)? @ -Uncomplicated Side effects of treatment? @ -No Exacerbation, Progression, or Severe Exacerbation? @ -No Poses a threat to life or bodily function? How? (Chest pain, USA, CT, pneumonia, PE, COPD, DKA, ARF, appy, cholecystitis, CVA, Diverticulitis, Homicidal, Suicidal, threat to staff... and all critical care pts) @ -No Disposition Clinical Impression: Chronic abdominal pain Disposition: HOME SELF-CARE Instructions (If sedation given, give patient instructions): Abdominal Pain (ED) Is patient prescribed a controlled substance at d/c from ED?: No Referrals: Isi Carolina MD [Primary Care Provider] - 1-2 days Time of Disposition: 04:50
== END 2022-07-04 05:22 | disposition home or self-care (01) ==
LOC: EC 02:55
DX: R10.9 Unspecified abdominal pain (principal); G89.29 Other chronic pain; J45.909 Unspecified asthma, uncomplicated; E11.9 Type 2 diabetes mellitus without complications; K21.9 Gastro-esophageal reflux disease without esophagitis; F41.9 Anxiety disorder, unspecified; F32.A Depression, unspecified; Z87.891 Personal history of nicotine dependence; Z91.030 Bee allergy status; Z91.040 Latex allergy status; Z88.2 Allergy status to sulfonamides; Z88.0 Allergy status to penicillin; Z88.5 Allergy status to narcotic agent; Z88.8 Allergy status to other drugs, medicaments and biological substances; Z91.018 Allergy to other foods; Z90.49 Acquired absence of other specified parts of digestive tract; Z79.4 Long term (current) use of insulin; Z79.84 Long term (current) use of oral hypoglycemic drugs; Z79.899 Other long term (current) drug therapy
CPT/HCPCS: 99284; 96372 ×3; J1200; J1885

== ENCOUNTER 2022-07-08 20:53 | Emergency (ER) | payer OTHER ==
--- NOTE | 2022-07-08 21:53 | ED ---
Abdominal Pain HPI - General Source: patient, RN notes reviewed Mode of arrival: ambulatory Limitations: no limitations <Jaylin Farfan - Last Filed: 07/08/22 22:00> <Tang Peña - Last Filed: 07/08/22 23:46> - General Chief Complaint: Abdominal Pain Stated Complaint: Abdominal Pain Time Seen by Provider: 07/08/22 21:51 - History of Present Illness Initial Comments: Patient is a 31-year-old female presents to the emergency department with multiple complaints. Her first is abdominal pain. Patient presents often to the emergency department with this complaint. She reports pain in her abdomen similar to her chronic abdominal pain. She reports nausea without vomiting. Patient also reports small streaks of blood in her stool today. Denies blood thinner use and history of GI bleed. States she has first appointment with pain clinic in a couple of months. She denies fever, chills, diarrhea, burning with urination, blood in the urine. Patient also complains of migraine. Patient has history of migraine states this feels typical of her migraine pain. She denies head trauma and recent falls. Denies focal deficit and weakness. No chest pain, shortness of breath, cold-like symptoms. (Jaylin Farfan) - Related Data Home Medications Medication Instructions Recorded Confirmed ARIPiprazole IM SYRINGE [Abilify 400 mg IM Q30D 07/28/21 06/23/22 Maintena Syringe] Ibuprofen [Motrin] 800 mg PO Q8H PRN 11/16/21 06/23/22 Omeprazole 20 mg PO DAILY 11/16/21 06/23/22 QUEtiapine FUMARATE [SEROquel XR] 600 mg PO HS 11/16/21 06/23/22 Acetaminophen [Tylenol Extra 500 mg PO Q4H PRN 03/30/22 06/23/22 Strength] Insulin Aspart [NovoLOG Flexpen] See Protocol SQ DIRECTED 03/30/22 06/23/22 Insulin Glargine,Hum.rec.anlog 45 units SQ DAILY 03/30/22 06/23/22 [Lantus Solostar Pen] Naproxen [Naprosyn] 500 mg PO BID 03/30/22 06/23/22 Ondansetron Odt [Zofran ODT] 4 mg SL DAILY PRN 03/30/22 06/23/22 Propranolol HCl [Inderal] 60 mg PO DAILY 03/30/22 06/23/22 metFORMIN HCL [Glucophage] 1,000 mg PO DAILY 03/30/22 06/23/22 tiZANidine [Zanaflex] 4 mg PO BID PRN 03/30/22 06/23/22 Etonogestrel [Nexplanon] 68 mg 06/22/22 Previous Rx's Medication Instructions Recorded Albuterol Nebulized [Ventolin 2.5 mg INHALATION Q4H PRN #75 ml 06/07/22 Nebulized] Ibuprofen [Motrin] 800 mg PO Q8HR PRN #30 tab 06/07/22 Allergies Allergy/AdvReac Type Severity Reaction Status Date / Time bee pollen Allergy Severe Anaphylaxis Verified 07/08/22 21:01 haloperidol [From Haldol] Allergy Severe QUIT Verified 07/08/22 21:01 BREATHING haloperidol lactate Allergy Severe QUIT Verified 07/08/22 21:01 [From Haldol] BREATHING latex Allergy Severe RASH-THROAT Verified 07/08/22 21:01 CLOSES [place] Allergy Anaphylaxis Verified 07/08/22 21:01 coconut Allergy Anaphylaxis Verified 07/08/22 21:01 morphine Allergy Rash/Hives Verified 07/08/22 21:01 pineapple Allergy Anaphylaxis Verified 07/08/22 21:01 spider venom Allergy Swelling Verified 07/08/22 21:01 Sulfa (Sulfonamide Allergy THROAT Verified 07/08/22 21:01 Antibiotics) SWELLS venom-wasp Allergy Swelling Verified 07/08/22 21:01 venom-wasp protein Allergy Swelling Verified 07/08/22 21:01 promethazine HCl AdvReac Severe Nausea & Verified 07/08/22 21:01 [From Phenergan] Vomiting tramadol AdvReac Severe Nausea & Verified 07/08/22 21:01 Vomiting amoxicillin AdvReac Nausea & Verified 07/08/22 21:01 Vomiting ANTS AdvReac Mild Anaphylaxis Uncoded 07/08/22 21:01 Review of Systems ROS Other: All systems not noted in ROS Statement are negative. <Jaylin Farfan - Last Filed: 07/08/22 22:00> ROS Other: All systems not noted in ROS Statement are negative. <Tang Peña - Last Filed: 07/08/22 23:46> ROS Statement: Those systems with pertinent positive or pertinent negative responses have been documented in the HPI. Past Medical History Past Medical History: Asthma, Diabetes Mellitus, GERD/Reflux Additional Past Medical History / Comment(s): migraines, degenerative disk disease, endometriosis, lupus, pancreatitis, DM2- insulin History of Any Multi-Drug Resistant Organisms: None Reported Past Surgical History: Cholecystectomy, Orthopedic Surgery Additional Past Surgical History / Comment(s): laparoscopc surgery for endometriosis, cyst removed from left foot, EGD, Past Anesthesia/Blood Transfusion Reactions: Previous Problems w/ Anesthesia Additional Past Anesthesia/Blood Transfusion Reaction / Comment(s): hard to wake up for 48-72 hours after laparoscopic surgery-was in hosp. for 3 days Past Psychological History: Anxiety, Depression, PTSD Smoking Status: Former smoker Past Alcohol Use History: None Reported Past Drug Use History: None Reported - Past Family History Mother Family Medical History: No Reported History Additional Family Medical History / Comment(s): hx migraines Father Family Medical History: Coronary Artery Disease (CAD), Hypertension Additional Family Medical History / Comment(s): ddd, alcoholism & drug use <Jaylin Farfan - Last Filed: 07/08/22 22:00> General Exam Limitations: no limitations <Jaylin Farfan - Last Filed: 07/08/22 22:00> - General Exam Comments Initial Comments: Visual Physical Exam Vital signs reviewed General: Well-appearing, nontoxic, no acute distress. Head: Normocephalic, atraumatic Eyes: PERRLA, EOMI ENT: Airway patent Chest: Nonlabored breathing Skin: No visual rash, normal skin tone Neuro: Alert and oriented 3 Musculoskeletal: No gross abnormalities (Jaylin Farfan) Course Vital Signs 07/08/22 20:58 Temperature 98.2 F Pulse Rate 117 H Respiratory 20 Rate Blood Pressure 124/91 O2 Sat by Pulse 96 Oximetry Medical Decision Making <Tang Peña - Last Filed: 07/08/22 23:46> - Medical Decision Making Was pt. sent in by a medical professional or institution (, PA, PIT STEWARD, urgent care, hospital, or fpc...) When possible be specific @ -No Did you speak to anyone other than the patient for history (EMS, parent, family, police, friend...)? What history was obtained from this source @ -No Did you review nursing and triage notes (agree or disagree)? Why? @ -I reviewed and agree with nursing and triage notes Were old charts reviewed (outside hosp., previous admission, EMS record, old EKG, old radiological studies, urgent care reports/EKG's, fpc records)? Report findings @ -Reviewed recent laboratory testing Differential Diagnosis (chest pain, altered mental status, abdominal pain women, abdominal pain men, vaginal bleeding, weakness, fever, dyspnea, syncope, headache, dizziness, GI bleed, back pain, seizure, CVA, palpatations, mental health, musculoskeletal)? @ -Differential Abdominal Pain Women: Appendicitis, Cholecystitis, diverticulosis, ischemic bowel, pancreatitis, hepatitis, UTI, gastroenteritis, AAA, incarcerated hernia, bowel obstruction, constipation, inflammatory bowel, hepatitis, peptic ulcer disease, splenic infarction, perforated viscus, vulvitis, ovarian torsion, PID, kidney stone, placenta abruption, this is not meant to be an all-inclusive list EKG interpreted by me (3pts min.). @ -As above X-rays interpreted by me (1pt min.). @ -KUB performed negative for obstruction or intraperitoneal free air CT interpreted by me (1pt min.). @ -None done U/S interpreted by me (1pt. min.). @ -None done What testing was considered but not performed or refused? (CT, X-rays, U/S, labs)? Why? @ -None What meds were considered but not given or refused? Why? @ -None Did you discuss the management of the patient with other professionals (professionals i.e. , PA, PIT STEWARD, lab, RT, psych nurse, social media editor, art therapy certified supervisor, teacher, environmental health officer, special education case manager)? Give summary @ -No Was smoking cessation discussed for >3mins.? @ -No Was critical care preformed (if so, how long)? @ -No Were there social determinants of health that impacted care today? How? (Homelessness, low income, unemployed, alcoholism, drug addiction, transportation, low edu. Level, literacy, decrease access to med. care, [facility], rehab)? @ -No Was there de-escalation of care discussed even if they declined (Discuss DNR or withdrawal of care, Hospice)? DNR status @ -No What co-morbidities impacted this encounter? (DM, HTN, Smoking, COPD, CAD, Cancer, CVA, ARF, Chemo, Hep., AIDS, mental health diagnosis, sleep apnea, morbid obesity)? @ -None Was patient admitted / discharged? Hospital course, mention meds given and route, prescriptions, significant lab abnormalities, going to OR and other pertinent info. @ -31-year-old female presenting for evaluation of abdominal pain which is chronic in nature. Left upper quadrant abdominal pain. She does have some mild tenderness on exam no rebound or guarding. She has an appointment with the pain clinic on Wednesday for this chronic pain. She has good follow-up with GI and primary care. She has tramadol at home as well as naproxen and Tylenol. I do feel she is stable for discharge given the chronic nature of this pain. She is given strict return parameters and will return with any worsening or changing symptoms. Undiagnosed new problem with uncertain prognosis? @ -No Drug Therapy requiring intensive monitoring for toxicity (Heparin, Nitro, Insulin, Cardizem)? @ -No Were any procedures done? @ -No Diagnosis/symptom? @ -Chronic abdominal pain Acute, or Chronic, or Acute on Chronic? @ -Acute on chronic Uncomplicated (without systemic symptoms) or Complicated (systemic symptoms)? @ -default Side effects of treatment? @ -No Exacerbation, Progression, or Severe Exacerbation? @ -Exacerbation of chronic pain (Tang Peña) Disposition <Jaylin Farfan - Last Filed: 07/08/22 22:00> Is patient prescribed a controlled substance at d/c from ED?: No Time of Disposition: 23:46 <Tang Peña - Last Filed: 07/08/22 23:46> Clinical Impression: Abdominal pain Disposition: HOME SELF-CARE Condition: Fair Instructions (If sedation given, give patient instructions): Abdominal Pain (ED) Referrals: Isi Carolina MD [Primary Care Provider] - 1-2 days
--- NOTE | 2022-07-08 22:39 | XR ---
EXAMINATION TYPE: XR KUB DATE OF EXAM: 07/08/2022 COMPARISON: 05/20/2022 HISTORY: Abdominal pain TECHNIQUE: 2 views upright FINDINGS: Upright views were obtained that show no sign of intestinal obstruction or pneumoperitoneum . Fecal pattern is normal. There are clips from cholecystectomy. No evidence of a mass. No pathologic calcifications over the kidneys. No evidence of a mass IMPRESSION: Nonacute abdomen.
[2022-07-08] MEDS ORDERED: KETOROLAC 15 MG/ML 1 ML VIAL IM STA (23:42)
[2022-07-09 00:05] VITALS: BP 106/82; PULSE 106; RESP 16; TEMP 98.5
[2022-07-09] MEDS ORDERED: diphenhydrAMINE 25 MG CAP PO STA (00:11)
== END 2022-07-09 00:17 | disposition home or self-care (01) ==
LOC: EC 20:53
DX: R10.12 Left upper quadrant pain (principal); E11.9 Type 2 diabetes mellitus without complications; J45.909 Unspecified asthma, uncomplicated; K21.9 Gastro-esophageal reflux disease without esophagitis; F32.A Depression, unspecified; F41.9 Anxiety disorder, unspecified; Z79.4 Long term (current) use of insulin; Z79.84 Long term (current) use of oral hypoglycemic drugs; Z79.899 Other long term (current) drug therapy; Z87.891 Personal history of nicotine dependence; Z88.0 Allergy status to penicillin; Z88.2 Allergy status to sulfonamides; Z88.5 Allergy status to narcotic agent; Z88.8 Allergy status to other drugs, medicaments and biological substances; Z91.030 Bee allergy status; Z91.040 Latex allergy status; Z91.038 Other insect allergy status; Z91.018 Allergy to other foods; Z90.49 Acquired absence of other specified parts of digestive tract
CPT/HCPCS: 74018; 96372; 99284

== ENCOUNTER → 2022-07-13 | Outpatient (CLI) | payer BC, OTHER ==
--- NOTE | 2022-07-13 11:50 | P.PAINCN ---
History of Present Illness - Reason for Consult Consult date: 07/13/22 - History of Present Illness This is 31 years old female with a chronic history of severe abdominal pain, she was referred to [facility] pain clinic from automotive service advisor Dr. Hampton, patient diagnosed with chronic pancreatitis, and she had multiple admissions to the emergency room ,secondary to chronic pancreatitis, patient denies any initiating event and she denies any history of alcohol use, and she reported that she continued to have severe epigastric pain with radiation to left upper quadrant , it is constant pain with exacerbation, feeling nauseated most of the time, she denies any fever or night sweats. she was treated with pain medication, tramadol with minimal relief Past Medical History Past Medical History: Asthma, Diabetes Mellitus, GERD/Reflux Additional Past Medical History / Comment(s): migraines, degenerative disk disease, endometriosis, lupus, pancreatitis, DM2- insulin History of Any Multi-Drug Resistant Organisms: None Reported Past Surgical History: Cholecystectomy, Orthopedic Surgery Additional Past Surgical History / Comment(s): laparoscopc surgery for endometriosis, cyst removed from left foot, EGD, Past Anesthesia/Blood Transfusion Reactions: Previous Problems w/ Anesthesia Additional Past Anesthesia/Blood Transfusion Reaction / Comm: hard to wake up for 48-72 hours after laparoscopic surgery-was in hosp. for 3 days Past Psychological History: Anxiety, Depression, PTSD Smoking Status: Former smoker Past Alcohol Use History: None Reported Past Drug Use History: None Reported - Past Family History Mother Family Medical History: No Reported History Additional Family Medical History / Comment(s): hx migraines Father Family Medical History: Coronary Artery Disease (CAD), Hypertension Additional Family Medical History / Comment(s): ddd, alcoholism & drug use Medications and Allergies Home Medications Medication Instructions Recorded Confirmed Type ARIPiprazole IM SYRINGE [Abilify 400 mg IM Q30D 07/28/21 06/23/22 History Maintena Syringe] Ibuprofen [Motrin] 800 mg PO Q8H PRN 11/16/21 06/23/22 History Omeprazole 20 mg PO DAILY 11/16/21 06/23/22 History QUEtiapine FUMARATE [SEROquel XR] 600 mg PO HS 11/16/21 06/23/22 History Acetaminophen [Tylenol Extra 500 mg PO Q4H PRN 03/30/22 06/23/22 History Strength] Insulin Aspart [NovoLOG Flexpen] See Protocol SQ DIRECTED 03/30/22 06/23/22 History Insulin Glargine,Hum.rec.anlog 45 units SQ DAILY 03/30/22 06/23/22 History [Lantus Solostar Pen] Naproxen [Naprosyn] 500 mg PO BID 03/30/22 06/23/22 History Ondansetron Odt [Zofran ODT] 4 mg SL DAILY PRN 03/30/22 06/23/22 History Propranolol HCl [Inderal] 60 mg PO DAILY 03/30/22 06/23/22 History metFORMIN HCL [Glucophage] 1,000 mg PO DAILY 03/30/22 06/23/22 History tiZANidine [Zanaflex] 4 mg PO BID PRN 03/30/22 06/23/22 History Albuterol Nebulized [Ventolin 2.5 mg INHALATION Q4H PRN #75 ml 06/07/22 06/23/22 Rx Nebulized] Ibuprofen [Motrin] 800 mg PO Q8HR PRN #30 tab 06/07/22 06/23/22 Rx Etonogestrel [Nexplanon] 68 mg 06/22/22 History Allergies Allergy/AdvReac Type Severity Reaction Status Date / Time bee pollen Allergy Severe Anaphylaxis Verified 07/08/22 21:01 haloperidol [From Haldol] Allergy Severe QUIT Verified 07/08/22 21:01 BREATHING haloperidol lactate Allergy Severe QUIT Verified 07/08/22 21:01 [From Haldol] BREATHING latex Allergy Severe RASH-THROAT Verified 07/08/22 21:01 CLOSES [place] Allergy Anaphylaxis Verified 07/08/22 21:01 coconut Allergy Anaphylaxis Verified 07/08/22 21:01 morphine Allergy Rash/Hives Verified 07/08/22 21:01 pineapple Allergy Anaphylaxis Verified 07/08/22 21:01 spider venom Allergy Swelling Verified 07/08/22 21:01 Sulfa (Sulfonamide Allergy THROAT Verified 07/08/22 21:01 Antibiotics) SWELLS venom-wasp Allergy Swelling Verified 07/08/22 21:01 venom-wasp protein Allergy Swelling Verified 07/08/22 21:01 promethazine HCl AdvReac Severe Nausea & Verified 07/08/22 21:01 [From Phenergan] Vomiting tramadol AdvReac Severe Nausea & Verified 07/08/22 21:01 Vomiting amoxicillin AdvReac Nausea & Verified 07/08/22 21:01 Vomiting ANTS AdvReac Mild Anaphylaxis Uncoded 07/08/22 21:01 Physical Exam Vitals: Intake and Output 07/12/22 07/13/22 07/13/22 22:59 06:59 14:59 Other: Weight 104.326 kg Physical Examinations : -Constitutiona : Cooperative , not in acute distress . -HEENT : nech : supple , no Lymphadenopathy , normal thyroid size . : eyes : no ptosis , no icterus, no photophobia . - neurologic : Cranial nerve II to XII intact , no focal neurological deffecit . -psychatric : alert , oriented X 3 , appropriate affect , intact judgment and insight . -abdomen : Soft, tenderness in the epigastric area, tenderness in the left upper quadrant, no organomegaly -Lymphatic : no Lymphadenopathy . - musculoskeltal : . Lumber spine moter stegnth lower extremities ,thigh and legs 5/5 Right side , 5/5 Left side Results Comments: MRCP showed that she had continuous evaluation of feeling changes posterior to pancreatic head and neck Assessment and Plan Plan: Assessment and plan= chronic epigastric and left upper quadrant pain secondary to chronic pancreatitis. could benefit from a celiac plexus block under fluoroscopy guidance procedure risk and benefits and alternatives discussed with the patient ,and her I have spent 35 minutes on patient care today. The time was used to review the medical records including relevant urine studies and Prescription history (MAPs), review of the available imaging, evaluation and examination of the patient, coordination of care with the medical staff and if applicable referring physicians, as well as creation of the medical record. Maps were checked and appropriate, opioid start talking form is on file and updated, urine drug screens of been appropriate and have been reviewed. , Time with Patient: Greater than 30 PQRS Measure Charge Sheet PQRS Narrative: Smoking Status Never smoker Home Medications: Ambulatory Orders ARIPiprazole IM SYRINGE [Abilify Maintena Syringe] 400 mg IM Q30D 07/28/21 Ibuprofen [Motrin] 800 mg PO Q8H PRN 11/16/21 Omeprazole 20 mg PO DAILY 11/16/21 QUEtiapine FUMARATE [SEROquel XR] 600 mg PO HS 11/16/21 Acetaminophen [Tylenol Extra Strength] 500 mg PO Q4H PRN 03/30/22 Insulin Aspart [NovoLOG Flexpen] See Protocol SQ DIRECTED 03/30/22 Insulin Glargine,Hum.rec.anlog [Lantus Solostar Pen] 45 units SQ DAILY 03/30/22 Naproxen [Naprosyn] 500 mg PO BID 03/30/22 Ondansetron Odt [Zofran ODT] 4 mg SL DAILY PRN 03/30/22 Propranolol HCl [Inderal] 60 mg PO DAILY 03/30/22 metFORMIN HCL [Glucophage] 1,000 mg PO DAILY 03/30/22 tiZANidine [Zanaflex] 4 mg PO BID PRN 03/30/22 Albuterol Nebulized [Ventolin Nebulized] 2.5 mg INHALATION Q4H PRN #75 ml 06/07/22 Ibuprofen [Motrin] 800 mg PO Q8HR PRN #30 tab 06/07/22 Etonogestrel [Nexplanon] 68 mg 06/22/22
[2022-07-13 12:02] VITALS: BP 125/85; PULSE 101; RESP 18; TEMP 97.8
== END ==
LOC: PNWHC3 11:03
PROVIDERS: ATTEND Specialist
DX: J45.909 Unspecified asthma, uncomplicated (principal); E11.9 Type 2 diabetes mellitus without complications; K21.9 Gastro-esophageal reflux disease without esophagitis; Z87.891 Personal history of nicotine dependence; Z79.84 Long term (current) use of oral hypoglycemic drugs; Z79.4 Long term (current) use of insulin; K86.1 Other chronic pancreatitis; G89.29 Other chronic pain; Z91.02 Food additives allergy status; Z91.040 Latex allergy status; Z88.5 Allergy status to narcotic agent; Z91.018 Allergy to other foods; Z88.2 Allergy status to sulfonamides; Z88.0 Allergy status to penicillin; Z88.1 Allergy status to other antibiotic agents
CPT/HCPCS: 99211

== ENCOUNTER 2022-07-16 16:39 | Emergency (ER) | payer BC, OTHER ==
[2022-07-16 16:51] VITALS: TEMP 98.4
[2022-07-16] MEDS ORDERED: KETOROLAC 15 MG/ML 1 ML VIAL IVP STA ×2 (17:04→19:36)
[2022-07-16] MEDS ORDERED: diphenhydrAMINE 50 MG/ML 1 ML VIAL IVP STA ×2 (17:04→19:48)
[2022-07-16] MEDS ORDERED: SODIUM CHLORIDE 0.9% 1,000 ML IV STA (17:14)
[2022-07-16] MEDS ORDERED: ONDANSETRON 4 MG/2 ML VIAL IVP STA (17:14)
--- NOTE | 2022-07-16 17:25 | ED ---
Abdominal Pain HPI - General Chief Complaint: Abdominal Pain Stated Complaint: recheck Time Seen by Provider: 07/16/22 17:03 Source: patient, RN notes reviewed Mode of arrival: ambulatory Limitations: no limitations - History of Present Illness Initial Comments: This is a 31-year-old female who presents to the emergency department for left upper quadrant pain. Patient is very well-known to this emergency department for recurrent visits related to her chronic pancreatitis. She is now following with the [facility] regarding this issue. States that around 11 AM, she started to develop severe abdominal pain. She was attending a cooking class at [facility] when the pain occurred. States that she also started to feel dizzy and nauseous. She went to [email or web address] who instructed her to come to the emergency department. Denies any fevers, chills, sore throat, cough, dyspnea, chest pain, palpitations, vomiting, diarrhea, back pain, or headaches. MD Complaint: abdominal pain Location: [facility] - Related Data Home Medications Medication Instructions Recorded Confirmed ARIPiprazole IM SYRINGE [Abilify 400 mg IM Q30D 07/28/21 06/23/22 Maintena Syringe] Ibuprofen [Motrin] 800 mg PO Q8H PRN 11/16/21 06/23/22 Omeprazole 20 mg PO DAILY 11/16/21 06/23/22 QUEtiapine FUMARATE [SEROquel XR] 600 mg PO HS 11/16/21 06/23/22 Acetaminophen [Tylenol Extra 500 mg PO Q4H PRN 03/30/22 06/23/22 Strength] Insulin Aspart [NovoLOG Flexpen] See Protocol SQ DIRECTED 03/30/22 06/23/22 Insulin Glargine,Hum.rec.anlog 45 units SQ DAILY 03/30/22 06/23/22 [Lantus Solostar Pen] Naproxen [Naprosyn] 500 mg PO BID 03/30/22 06/23/22 Ondansetron Odt [Zofran ODT] 4 mg SL DAILY PRN 03/30/22 06/23/22 Propranolol HCl [Inderal] 60 mg PO DAILY 03/30/22 06/23/22 metFORMIN HCL [Glucophage] 1,000 mg PO DAILY 03/30/22 06/23/22 tiZANidine [Zanaflex] 4 mg PO BID PRN 03/30/22 06/23/22 Etonogestrel [Nexplanon] 68 mg 06/22/22 Previous Rx's Medication Instructions Recorded Albuterol Nebulized [Ventolin 2.5 mg INHALATION Q4H PRN #75 ml 06/07/22 Nebulized] Ibuprofen [Motrin] 800 mg PO Q8HR PRN #30 tab 06/07/22 Allergies Allergy/AdvReac Type Severity Reaction Status Date / Time bee pollen Allergy Severe Anaphylaxis Verified 07/16/22 16:52 haloperidol [From Haldol] Allergy Severe QUIT Verified 07/16/22 16:52 BREATHING haloperidol lactate Allergy Severe QUIT Verified 07/16/22 16:52 [From Haldol] BREATHING latex Allergy Severe RASH-THROAT Verified 07/16/22 16:52 CLOSES [place] Allergy Anaphylaxis Verified 07/16/22 16:52 coconut Allergy Anaphylaxis Verified 07/16/22 16:52 morphine Allergy Rash/Hives Verified 07/16/22 16:52 pineapple Allergy Anaphylaxis Verified 07/16/22 16:52 spider venom Allergy Swelling Verified 07/16/22 16:52 Sulfa (Sulfonamide Allergy THROAT Verified 07/16/22 16:52 Antibiotics) SWELLS venom-wasp Allergy Swelling Verified 07/16/22 16:52 venom-wasp protein Allergy Swelling Verified 07/16/22 16:52 promethazine HCl AdvReac Severe Nausea & Verified 07/16/22 16:52 [From Phenergan] Vomiting tramadol AdvReac Severe Nausea & Verified 07/16/22 16:52 Vomiting amoxicillin AdvReac Nausea & Verified 07/16/22 16:52 Vomiting ANTS AdvReac Mild Anaphylaxis Uncoded 07/16/22 16:52 Review of Systems ROS Statement: Those systems with pertinent positive or pertinent negative responses have been documented in the HPI. ROS Other: All systems not noted in ROS Statement are negative. Past Medical History Past Medical History: Asthma, Diabetes Mellitus, GERD/Reflux Additional Past Medical History / Comment(s): migraines, degenerative disk disease, endometriosis, lupus, pancreatitis, DM2- insulin History of Any Multi-Drug Resistant Organisms: None Reported Past Surgical History: Cholecystectomy, Orthopedic Surgery Additional Past Surgical History / Comment(s): laparoscopc surgery for endometriosis, cyst removed from left foot, EGD, Past Anesthesia/Blood Transfusion Reactions: Previous Problems w/ Anesthesia Additional Past Anesthesia/Blood Transfusion Reaction / Comment(s): hard to wake up for 48-72 hours after laparoscopic surgery-was in hosp. for 3 days Past Psychological History: Anxiety, Depression, PTSD Smoking Status: Former smoker Past Alcohol Use History: None Reported Past Drug Use History: Marijuana - Past Family History Mother Family Medical History: No Reported History Additional Family Medical History / Comment(s): hx migraines Father Family Medical History: Coronary Artery Disease (CAD), Hypertension Additional Family Medical History / Comment(s): ddd, alcoholism & drug use General Exam Limitations: no limitations General appearance: alert, in no apparent distress Head exam: Present: atraumatic, normocephalic, normal inspection Respiratory exam: Present: normal lung sounds bilaterally. Absent: respiratory distress, wheezes, rales, rhonchi, stridor Cardiovascular Exam: Present: regular rate, normal rhythm, normal heart sounds. Absent: systolic murmur, diastolic murmur, rubs, gallop, clicks GI/Abdominal exam: Present: soft, tenderness (LUQ), normal bowel sounds. Absent: distended Neurological exam: Present: alert, oriented X3, CN II-XII intact Psychiatric exam: Present: normal affect, normal mood Skin exam: Present: warm, dry, intact, normal color. Absent: rash Course Vital Signs 07/16/22 07/16/22 16:47 18:36 Temperature 98.4 F Pulse Rate 104 H 86 Respiratory 20 16 Rate Blood Pressure 91/68 123/83 O2 Sat by Pulse 96 98 Oximetry Medical Decision Making - Medical Decision Making This is a 31-year-old female who presents to the emergency department for abdominal pain. Was pt. sent in by a medical professional or institution? @ -No Did you speak to anyone other than the patient for history? @ -No Did you review nursing and triage notes? @ -Yes, and I agree, it is accurate with regards to the patient's symptoms. Were old charts reviewed? @ -No Differential Diagnosis? @ -Differential Abdominal Pain Women: Appendicitis, diverticulosis, ischemic bowel, pancreatitis, hepatitis, UTI, gastroenteritis, AAA, incarcerated hernia, bowel obstruction, constipation, inflammatory bowel, hepatitis, peptic ulcer disease, splenic infarction, perf orated viscus, vulvitis, ovarian torsion, PID, kidney stone, placenta abruption, this is not meant to be an all-inclusive list What testing was considered but not performed? (CT, X-rays, U/S, labs)? Why? @ -None What meds were considered but not given? Why? @ -None Did you discuss the management of the patient with other professionals? @ -No Did you reconcile home meds? @ -No Was smoking cessation discussed for >3mins.? @ -No Was critical care preformed (if so, how long)? @ -No Were there social determinants of health that impacted care today? How? (Homelessness, low income, unemployed, alcoholism, drug addiction, transportation, low edu. Level, literacy, decrease access to med. care, senior living, rehab)? @ -No Was there de-escalation of care discussed even if they declined? (Discuss DNR or withdrawal of care, Hospice)? @ -No What co-morbidities impacted this encounter? (DM, HTN, Smoking, COPD, CAD, Cancer, CVA, Hep., AIDS, mental health diagnosis, sleep apnea, morbid obesity)? @ -Morbid obesity, chronic pancreatitis, DM Was patient admitted / discharged? @ -Discharged. Lab work obtained and found to be nonactionable. Patient was given IV fluids, Zofran, Toradol, and Benadryl for management of her symptoms. Symptoms improved following medication administration. Patient discharged home in stable condition. Advised she slowly advance her diet as tolerated and remain well-hydrated. Undiagnosed new problem with uncertain prognosis? @ -None Drug Therapy requiring intensive monitoring for toxicity (Heparin, Nitro, Insulin, Cardizem)? @ -None Were any procedures done? @ -None Diagnosis/symptom? @ -Abdominal pain Acute, or Chronic, or Acute on Chronic? @ -Acute Uncomplicated (without systemic symptoms) or Complicated (systemic symptoms)? @ -Uncomplicated Side effects of treatment? @ -None Exacerbation, Progression, or Severe Exacerbation] @ -Not applicable Poses a threat to life or bodily function? @ -No Diagnosis/symptom? @ -Chronic pancreatitis Acute, or Chronic, or Acute on Chronic? @ -Acute on chronic Uncomplicated (without systemic symptoms) or Complicated (systemic symptoms)? @ -Uncomplicated Side effects of treatment? @ -None Exacerbation, Progression, or Severe Exacerbation] @ -Exacerbation Poses a threat to life or bodily function? @ -No Return precautions reviewed in depth, the patient is instructed to return to the emergency department with any new, worsening, or concerning symptoms. Patient verbalized understanding. This case was discussed in detail with the attending ED physician, Dr. Vasquez. Presentation, findings, and treatment plan discussed in detail as well. - Lab Data Result diagrams: 07/16/22 17:35 07/16/22 17:35 Lab Results 07/16/22 07/16/22 07/16/22 Range/Units 17:35 17:35 17:35 WBC 5.4 (3.8-10.6) k/uL RBC 3.86 (3.80-5.40) m/uL Hgb 11.4 (11.4-16.0) gm/dL Hct 32.7 L (34.0-46.0) % MCV 84.9 (80.0-100.0) fL MCH 29.5 (25.0-35.0) pg MCHC 34.7 (31.0-37.0) g/dL RDW 15.3 (11.5-15.5) % Plt Count 218 (150-450) k/uL MPV 7.9 Neutrophils % 59 % Lymphocytes % 31 % Monocytes % 4 % Eosinophils % 3 % Basophils % 0 % Neutrophils # 3.2 (1.3-7.7) k/uL Lymphocytes # 1.7 (1.0-4.8) k/uL Monocytes # 0.2 (0-1.0) k/uL Eosinophils # 0.2 (0-0.7) k/uL Basophils # 0.0 (0-0.2) k/uL Sodium 134 L (137-145) mmol/L Potassium 4.4 (3.5-5.1) mmol/L Chloride 104 (98-107) mmol/L Carbon Dioxide 24 (22-30) mmol/L Anion Gap 6 mmol/L BUN 7 (7-17) mg/dL Creatinine 0.51 L (0.52-1.04) mg/dL Est GFR (CKD-EPI)AfAm >90 (>60 ml/min/1.73 sqM) Est GFR (CKD-EPI)NonAf >90 (>60 ml/min/1.73 sqM) Glucose 161 H (74-99) mg/dL Calcium 10.2 (8.4-10.2) mg/dL Total Bilirubin 0.4 (0.2-1.3) mg/dL AST 17 (14-36) U/L ALT 20 (4-34) U/L Alkaline Phosphatase 73 (38-126) U/L Total Protein 6.6 (6.3-8.2) g/dL Albumin 3.5 (3.5-5.0) g/dL Amylase <30 L (30-110) U/L Lipase 98 (23-300) U/L Urine Color Light Yellow Urine Appearance Clear (Clear) Urine pH 6.0 (5.0-8.0) Ur Specific Raven 1.006 (1.001-1.035) Urine Protein Negative (Negative) Urine Glucose (UA) Trace H (Negative) Urine Ketones Negative (Negative) Urine Blood Negative (Negative) Urine Nitrite Negative (Negative) Urine Bilirubin Negative (Negative) Urine Urobilinogen <2.0 (<2.0) mg/dL Ur Leukocyte Esterase Negative (Negative) Disposition Clinical Impression: Chronic pancreatitis, Abdominal pain Disposition: HOME SELF-CARE Instructions (If sedation given, give patient instructions): Abdominal Pain (ED) Additional Instructions: Return to the emergency department with any new, worsening, or concerning symptoms. Make sure that you remain well-hydrated and slowly advance your diet as tolerated. Follow up with your primary care provider in 1-2 days. Is patient prescribed a controlled substance at d/c from ED?: No Referrals: Isi Carolina MD [Primary Care Provider] - 1-2 days
[2022-07-16 18:29] LABS: Basophils % (A) 0 %; Eosinophils # (A) 0.2 k/uL (0-0.7); Eosinophils % (A) 3 %; HCT 32.7 % (34.0-46.0); HGB 11.4 gm/dL (11.4-16.0); Lymphocytes # (A) 1.7 k/uL (1.0-4.8); Lymphocytes % (A) 31 %; MCH 29.5 pg (25.0-35.0); MCHC 34.7 g/dL (31.0-37.0); MCV 84.9 fL (80.0-100.0); Mean Platelet Volume 7.9; Monocytes # (A) 0.2 k/uL (0-1.0); Monocytes % (A) 4 %; Neutrophils # (A) 3.2 k/uL (1.3-7.7); Neutrophils % (A) 59 %; Platelet Count 218 k/uL (150-450); RBC 3.86 m/uL (3.80-5.40); RDW 15.3 % (11.5-15.5); WBC 5.4 k/uL (3.8-10.6)
[2022-07-16 18:37] VITALS: BP 123/83; PULSE 86; RESP 16
[2022-07-16 18:44] LABS: ALT 20 U/L (4-34); AST 17 U/L (14-36); African American GFR (CKD) >90 (>60 ml/min/1.73 sqM); Albumin 3.5 g/dL (3.5-5.0); Alkaline Phosphatase 73 U/L (38-126); Anion Gap 6 mmol/L; Blood Urea Nitrogen 7 mg/dL (7-17); Calcium 10.2 mg/dL (8.4-10.2); Carbon Dioxide 24 mmol/L (22-30); Chloride 104 mmol/L (98-107); Glucose 161 mg/dL (74-99); Lipase 98 U/L (23-300); Non-African American GFR(CKD) >90 (>60 ml/min/1.73 sqM); Potassium 4.4 mmol/L (3.5-5.1); Sodium 134 mmol/L (137-145); Total Bilirubin 0.4 mg/dL (0.2-1.3); Total Protein 6.6 g/dL (6.3-8.2)
[2022-07-16 19:08] LABS: Amylase <30 U/L (30-110)
[2022-07-16 20:22] LABS: Appearance,Urine Clear (Clear); Bilirubin,Urine Negative (Negative); Blood,Urine Negative (Negative); Color,Urine Light Yellow; Glucose,Urine (UA) Trace (Negative); Ketones,Urine Negative (Negative); Leukocyte Esterase,Urine Negative (Negative); Nitrite,Urine Negative (Negative); Protein,Urine Negative (Negative); Specific Gravity,Urine 1.006 (1.001-1.035); Urobilinogen,Urine <2.0 mg/dL (<2.0)
== END 2022-07-16 20:14 | disposition home or self-care (01) ==
LOC: EC 16:39
DX: K86.1 Other chronic pancreatitis (principal); E11.9 Type 2 diabetes mellitus without complications; J45.909 Unspecified asthma, uncomplicated; K21.9 Gastro-esophageal reflux disease without esophagitis; F12.90 Cannabis use, unspecified, uncomplicated; F32.A Depression, unspecified; F41.9 Anxiety disorder, unspecified; E66.01 Morbid (severe) obesity due to excess calories; Z68.41 Body mass index [BMI] 40.0-44.9, adult; Z79.4 Long term (current) use of insulin; Z79.84 Long term (current) use of oral hypoglycemic drugs; Z79.899 Other long term (current) drug therapy; Z87.891 Personal history of nicotine dependence; Z88.0 Allergy status to penicillin; Z88.2 Allergy status to sulfonamides; Z88.5 Allergy status to narcotic agent; Z88.8 Allergy status to other drugs, medicaments and biological substances; Z91.040 Latex allergy status; Z91.030 Bee allergy status; Z91.018 Allergy to other foods; Z91.038 Other insect allergy status
CPT/HCPCS: 36415; 80053; 82150; 83690; 85025; 81003; 99284; 96374; 96375 ×2; 96376 ×2; 96361; J1200; J2405; J1885

== ENCOUNTER 2022-07-20 13:21 | Emergency (ER) | payer BC, OTHER ==
[2022-07-20 13:33] VITALS: RESP 18; TEMP 98.4
[2022-07-20] MEDS ORDERED: DICYCLOMINE 10 MG/ML 2 ML AMP IM STA (17:25)
[2022-07-20] MEDS ORDERED: PROCHLORPERAZINE 10 MG TAB PO STA (17:25)
--- NOTE | 2022-07-20 17:31 | ED ---
Recheck HPI - General Chief Complaint: Abdominal Pain Stated Complaint: Abd Pain Time Seen by Provider: 07/20/22 16:19 Source: patient, RN notes reviewed, old records reviewed Mode of arrival: ambulatory Limitations: no limitations - History of Present Illness Initial Comments: This is a 31 female to the ED for evaluation of abdominal pain, patient is well known to our facility for abdominal pain and chronic pain w pancreatitis and malnutrition. Patient dose have quardian who does not allow patient to furthermore receive pain medications. Patient does admit to recent inpatient hospitalition at [facility] facility. She had some electrolyte abnormalities at the time with replacement. No significant recent weithg loss or gain and is seeing spweialist for her pancreatitis. MD Complaint: medication refill request (patient is not allowed narcotics from guardian request) Returns Today for: persistent/worsening pain related to initial visit Symptoms Since Prior Visit: worsening pain (chronic abdominal pain) Treatments Prior to Arrival: Given Pain Meds on, other (recent hospitilazation) - Related Data Home Medications Medication Instructions Recorded Confirmed ARIPiprazole IM SYRINGE [Abilify 400 mg IM Q30D 07/28/21 06/23/22 Maintena Syringe] Ibuprofen [Motrin] 800 mg PO Q8H PRN 11/16/21 06/23/22 Omeprazole 20 mg PO DAILY 11/16/21 06/23/22 QUEtiapine FUMARATE [SEROquel XR] 600 mg PO HS 11/16/21 06/23/22 Acetaminophen [Tylenol Extra 500 mg PO Q4H PRN 03/30/22 06/23/22 Strength] Insulin Aspart [NovoLOG Flexpen] See Protocol SQ DIRECTED 03/30/22 06/23/22 Insulin Glargine,Hum.rec.anlog 45 units SQ DAILY 03/30/22 06/23/22 [Lantus Solostar Pen] Naproxen [Naprosyn] 500 mg PO BID 03/30/22 06/23/22 Ondansetron Odt [Zofran ODT] 4 mg SL DAILY PRN 03/30/22 06/23/22 Propranolol HCl [Inderal] 60 mg PO DAILY 03/30/22 06/23/22 metFORMIN HCL [Glucophage] 1,000 mg PO DAILY 03/30/22 06/23/22 tiZANidine [Zanaflex] 4 mg PO BID PRN 03/30/22 06/23/22 Etonogestrel [Nexplanon] 68 mg 06/22/22 Previous Rx's Medication Instructions Recorded Albuterol Nebulized [Ventolin 2.5 mg INHALATION Q4H PRN #75 ml 06/07/22 Nebulized] Ibuprofen [Motrin] 800 mg PO Q8HR PRN #30 tab 06/07/22 Allergies Allergy/AdvReac Type Severity Reaction Status Date / Time bee pollen Allergy Severe Anaphylaxis Verified 07/16/22 16:52 haloperidol [From Haldol] Allergy Severe QUIT Verified 07/16/22 16:52 BREATHING haloperidol lactate Allergy Severe QUIT Verified 07/16/22 16:52 [From Haldol] BREATHING latex Allergy Severe RASH-THROAT Verified 07/16/22 16:52 CLOSES [place] Allergy Anaphylaxis Verified 07/16/22 16:52 coconut Allergy Anaphylaxis Verified 07/16/22 16:52 morphine Allergy Rash/Hives Verified 07/16/22 16:52 pineapple Allergy Anaphylaxis Verified 07/16/22 16:52 spider venom Allergy Swelling Verified 07/16/22 16:52 Sulfa (Sulfonamide Allergy THROAT Verified 07/16/22 16:52 Antibiotics) SWELLS venom-wasp Allergy Swelling Verified 07/16/22 16:52 venom-wasp protein Allergy Swelling Verified 07/16/22 16:52 promethazine HCl AdvReac Severe Nausea & Verified 07/16/22 16:52 [From Phenergan] Vomiting tramadol AdvReac Severe Nausea & Verified 07/16/22 16:52 Vomiting amoxicillin AdvReac Nausea & Verified 07/16/22 16:52 Vomiting ANTS AdvReac Mild Anaphylaxis Uncoded 07/16/22 16:52 Review of Systems ROS Statement: Those systems with pertinent positive or pertinent negative responses have been documented in the HPI. ROS Other: All systems not noted in ROS Statement are negative. Past Medical History Past Medical History: Asthma, Diabetes Mellitus, GERD/Reflux Additional Past Medical History / Comment(s): migraines, degenerative disk disease, endometriosis, lupus, pancreatitis, DM2- insulin History of Any Multi-Drug Resistant Organisms: None Reported Past Surgical History: Cholecystectomy, Orthopedic Surgery Additional Past Surgical History / Comment(s): laparoscopc surgery for endometriosis, cyst removed from left foot, EGD, Past Anesthesia/Blood Transfusion Reactions: Previous Problems w/ Anesthesia Additional Past Anesthesia/Blood Transfusion Reaction / Comment(s): hard to wake up for 48-72 hours after laparoscopic surgery-was in hosp. for 3 days Past Psychological History: Anxiety, Depression, PTSD Smoking Status: Former smoker Past Alcohol Use History: None Reported Past Drug Use History: Marijuana - Past Family History Mother Family Medical History: No Reported History Additional Family Medical History / Comment(s): hx migraines Father Family Medical History: Coronary Artery Disease (CAD), Hypertension Additional Family Medical History / Comment(s): ddd, alcoholism & drug use General Exam Limitations: no limitations General appearance: alert, in no apparent distress, obese Head exam: Present: atraumatic, normocephalic, normal inspection Eye exam: Present: normal appearance, PERRL, EOMI. Absent: scleral icterus, conjunctival injection, periorbital swelling ENT exam: Present: normal exam, mucous membranes moist Neck exam: Present: normal inspection. Absent: tenderness, meningismus, lymphadenopathy Respiratory exam: Present: normal lung sounds bilaterally. Absent: respiratory distress, wheezes, rales, rhonchi, stridor Cardiovascular Exam: Present: regular rate, normal rhythm, normal heart sounds. Absent: systolic murmur, diastolic murmur, rubs, gallop, clicks GI/Abdominal exam: Present: soft, normal bowel sounds. Absent: distended, tenderness, guarding, rebound, rigid Extremities exam: Present: normal inspection, full ROM, normal capillary refill. Absent: tenderness, pedal edema, joint swelling, calf tenderness Back exam: Present: normal inspection Neurological exam: Present: alert, oriented X3, CN II-XII intact Psychiatric exam: Present: normal affect, normal mood Skin exam: Present: warm, dry, intact, normal color. Absent: rash Course Vital Signs 07/20/22 13:31 Temperature 98.4 F Pulse Rate 99 Respiratory 18 Rate Blood Pressure 133/83 O2 Sat by Pulse 99 Oximetry - Reevaluation(s) Reevaluation #1: 07/20/22 17:29 medical record is reviewed Reevaluation #2: 07/20/22 17:29 patient symproms are improved Reevaluation #3: 07/20/22 17:29 patient is informed of results and questions answered Reevaluation #4: 07/20/22 18:12 Was pt. sent in by a medical professional or institution? @ -no Did you speak to anyone other than the patient for history? @ -no Did you review nursing and triage notes? @ -agree Were old charts reviewed? @ -no Differential Diagnosis? @ -no EKG interpreted by me (3pts min.)? @ -non X-rays interpreted by me (1pt min.)? @ on] CT interpreted by me (1pt min.)? @ -no U/S interpreted by me (1pt. min.)? @ -no What testing was considered but not performed? (CT, X-rays, U/S, labs)? Why? @ -no What meds were considered but not given? Why? @ -no Did you discuss the management of the patient with other professionals? @ -no Did you reconcile home meds? @ -no Was smoking cessation discussed for >3mins.? @ -no Was critical care preformed (if so, how long)? @ -no Were there social determinants of health that impacted care today? How? (Homelessness, low income, unemployed, alcoholism, drug addiction, transportation, low edu. Level, literacy, decrease access to med. care, prison, rehab)? @ -no Was there de-escalation of care discussed even if they declined? (Discuss DNR or withdrawal of care, Hospice)? @ -no What co-morbidities impacted this encounter? (DM, HTN, Smoking, COPD, CAD, Cancer, CVA, Hep., AIDS, mental health diagnosis, sleep apnea, morbid obesity)? @ -no Was patient admitted / discharged? @ -no Undiagnosed new problem with uncertain prognosis? @ -no Drug Therapy requiring intensive monitoring for toxicity (Heparin, Nitro, Insulin, Cardizem)? @ -no Were any procedures done? @ -no Diagnosis/symptom? @ -no Acute, or Chronic, or Acute on Chronic? @ -no Uncomplicated (without systemic symptoms) or Complicated (systemic symptoms)? @ -no Side effects of treatment? @ -no Exacerbation, Progression, or Severe Exacerbation] @ -no Poses a threat to life or bodily function? @ -no Reevaluation #5: 07/20/22 18:13 MDM differential abdominal pain female Medical Decision Making - Medical Decision Making 31 femal eto the ED for acute on chronic abdominal pain and no significant distress with normal VS and normal exam today, patient is improved and is OK for DC to continue outpatient treatment. - Radiology Data Radiology results: report reviewed (XR kub is negatie for acute disease), image reviewed Disposition Clinical Impression: Nausea & vomiting, Abdominal pain Disposition: HOME SELF-CARE Condition: Fair Is patient prescribed a controlled substance at d/c from ED?: No Referrals: Isi Carolina MD [Primary Care Provider] - 1-2 days Time of Disposition: 18:00
[2022-07-20] MEDS ORDERED: KETOROLAC 15 MG/ML 1 ML VIAL IM STA (17:59)
[2022-07-20] MEDS ORDERED: diphenhydrAMINE 50 MG CAP PO STA (17:59)
[2022-07-20] MEDS ORDERED: diphenhydrAMINE 50 MG/ML 1 ML VIAL IM STA (17:59)
[2022-07-20 18:14] VITALS: BP 130/78; PULSE 98
--- NOTE | 2022-07-20 18:25 | XR ---
EXAMINATION TYPE: XR KUB portable DATE OF EXAM: 07/20/2022 COMPARISON: 07/08/2022 INDICATION: Left-sided abdominal pain TECHNIQUE: Single view abdomen FINDINGS: There is a normal bowel gas pattern. Psoas margins are normal. No organomegaly is present. Cholecystectomy clips are present. No suspicious calcifications. IMPRESSION: 1. Unremarkable Abdomen
[2022-07-20 18:37] LABS: Appearance,Urine Clear (Clear); Bacteria,Urine Moderate /hpf; Bilirubin,Urine Negative (Negative); Blood,Urine Large (Negative); Color,Urine Light Yellow; Glucose,Urine (UA) Negative (Negative); Ketones,Urine Negative (Negative); Leukocyte Esterase,Urine Trace (Negative); Mucus,Urine Rare /hpf; Nitrite,Urine Negative (Negative); PH, Urine 5.5 (5.0-8.0); Protein,Urine Trace (Negative); RBC,Urine 1 /hpf (0-5); Specific Gravity,Urine 1.011 (1.001-1.035); Squamous Epithelial Cell,Urine 3 /hpf (0-4); Urobilinogen,Urine <2.0 mg/dL (<2.0); WBC,Urine 4 /hpf (0-5)
== END 2022-07-20 18:13 | disposition home or self-care (01) ==
LOC: EC 13:21
DX: R10.9 Unspecified abdominal pain (principal); R11.2 Nausea with vomiting, unspecified; E11.9 Type 2 diabetes mellitus without complications; J45.909 Unspecified asthma, uncomplicated; K21.9 Gastro-esophageal reflux disease without esophagitis; F32.A Depression, unspecified; F41.9 Anxiety disorder, unspecified; F12.90 Cannabis use, unspecified, uncomplicated; Z79.4 Long term (current) use of insulin; Z79.84 Long term (current) use of oral hypoglycemic drugs; Z87.891 Personal history of nicotine dependence; Z79.899 Other long term (current) drug therapy; Z88.0 Allergy status to penicillin; Z88.1 Allergy status to other antibiotic agents; Z88.2 Allergy status to sulfonamides; Z88.5 Allergy status to narcotic agent; Z88.8 Allergy status to other drugs, medicaments and biological substances; Z91.030 Bee allergy status; Z91.040 Latex allergy status; Z91.018 Allergy to other foods; Z91.038 Other insect allergy status; Z91.048 Other nonmedicinal substance allergy status; Z90.49 Acquired absence of other specified parts of digestive tract
CPT/HCPCS: 99284; 96372 ×3; 81001; 74018; S0183; J1200; J0500; J1885

== ENCOUNTER 2022-07-23 18:10 | Emergency (ER) | payer OTHER ==
[2022-07-23 18:14] VITALS: TEMP 97.4
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
--- NOTE | 2022-07-23 20:47 | XR ---
EXAMINATION TYPE: XR KUB DATE OF EXAM: 07/23/2022 8:34 PM CLINICAL HISTORY: Left lower quadrant pain and constipation for 2 weeks TECHNIQUE: 2 upright views COMPARISON: None. FINDINGS: Scattered gas is seen in non-distended small bowel loops. Gas and fecal material is seen in non-diste nded colon. There is no visceromegaly, pneumoperitoneum, or abnormal calcification appreciated. The lung bases are clear and the osseous structures are intact. IMPRESSION: No acute process, although prominent pancolonic stool volume is noted.
[2022-07-23] MEDS ORDERED: diphenhydrAMINE 50 MG/ML 1 ML VIAL IVP STA (21:35)
[2022-07-23] MEDS ORDERED: KETOROLAC 15 MG/ML 1 ML VIAL IVP STA (21:35)
[2022-07-23 21:43] LABS: Basophils % (A) 1 %; Eosinophils # (A) 0.1 k/uL (0-0.7); Eosinophils % (A) 2 %; HCT 34.1 % (34.0-46.0); HGB 11.6 gm/dL (11.4-16.0); Lymphocytes % (A) 39 %; MCH 29.6 pg (25.0-35.0); Mean Platelet Volume 8.1; Monocytes # (A) 0.2 k/uL (0-1.0); Monocytes % (A) 4 %; Neutrophils # (A) 2.8 k/uL (1.3-7.7); Neutrophils % (A) 53 %; Platelet Count 233 k/uL (150-450); RBC 3.92 m/uL (3.80-5.40); RDW 14.7 % (11.5-15.5); WBC 5.2 k/uL (3.8-10.6)
[2022-07-23 21:59] LABS: ALT 19 U/L (4-34); AST 19 U/L (14-36); African American GFR (CKD) >90 (>60 ml/min/1.73 sqM); Albumin 3.8 g/dL (3.5-5.0); Alkaline Phosphatase 86 U/L (38-126); Anion Gap 13 mmol/L; Blood Urea Nitrogen 10 mg/dL (7-17); Calcium 10.4 mg/dL (8.4-10.2); Carbon Dioxide 24 mmol/L (22-30); Chloride 98 mmol/L (98-107); Glucose 245 mg/dL (74-99); Non-African American GFR(CKD) >90 (>60 ml/min/1.73 sqM); Potassium 4.8 mmol/L (3.5-5.1); Sodium 135 mmol/L (137-145); Total Bilirubin 0.3 mg/dL (0.2-1.3)
[2022-07-23 22:09] VITALS: BP 123/90
[2022-07-23 22:48] LABS: Appearance,Urine Clear (Clear); Bacteria,Urine Rare /hpf; Bilirubin,Urine Negative (Negative); Blood,Urine Small (Negative); Color,Urine Yellow; Glucose,Urine (UA) 4+ (Negative); Ketones,Urine Negative (Negative); Leukocyte Esterase,Urine Trace (Negative); Mucus,Urine Rare /hpf; Nitrite,Urine Negative (Negative); PH, Urine 6.5 (5.0-8.0); Protein,Urine Negative (Negative); RBC,Urine 1 /hpf (0-5); Specific Gravity,Urine 1.022 (1.001-1.035); Squamous Epithelial Cell,Urine 3 /hpf (0-4); Urobilinogen,Urine <2.0 mg/dL (<2.0); WBC,Urine 5 /hpf (0-5)
[2022-07-24] MEDS ORDERED: NA PHOS,M-B/NA PHOS,DI-BA 133 ML ENEMA RECTAL STA (00:03)
[2022-07-24 01:03] VITALS: PULSE 90; RESP 18
== END 2022-07-24 01:03 | disposition home or self-care (01) ==
LOC: EC 18:10
DX: K59.00 Constipation, unspecified (principal); E11.9 Type 2 diabetes mellitus without complications; J45.909 Unspecified asthma, uncomplicated; F32.A Depression, unspecified; F41.9 Anxiety disorder, unspecified; K21.9 Gastro-esophageal reflux disease without esophagitis; F12.90 Cannabis use, unspecified, uncomplicated; Z79.1 Long term (current) use of non-steroidal anti-inflammatories (NSAID); Z79.4 Long term (current) use of insulin; Z79.84 Long term (current) use of oral hypoglycemic drugs; Z79.899 Other long term (current) drug therapy; Z87.891 Personal history of nicotine dependence; Z88.0 Allergy status to penicillin; Z88.1 Allergy status to other antibiotic agents; Z88.2 Allergy status to sulfonamides; Z88.5 Allergy status to narcotic agent; Z88.8 Allergy status to other drugs, medicaments and biological substances; Z91.030 Bee allergy status; Z91.040 Latex allergy status; Z90.49 Acquired absence of other specified parts of digestive tract
CPT/HCPCS: 36415; 80053; 85025; 81001; 81025; 87808; 87070; 74018; 99284; 96374; 96375; J1200; J1885

== ENCOUNTER 2022-08-01 12:31 | Emergency (ER) | payer BC, OTHER ==
[2022-08-01] MEDS ORDERED: METOCLOPRAMIDE 5 MG/ML 2 ML VIAL IVP STA (12:59)
[2022-08-01] MEDS ORDERED: KETOROLAC 15 MG/ML 1 ML VIAL IVP STA (12:59)
[2022-08-01] MEDS ORDERED: diphenhydrAMINE 50 MG/ML 1 ML VIAL IVP STA (12:59)
--- NOTE | 2022-08-01 13:03 | ED ---
General Adult HPI - General Chief complaint: Headache Stated complaint: abd pain Time Seen by Provider: 08/01/22 12:48 Source: patient Mode of arrival: ambulatory Limitations: no limitations - History of Present Illness Initial comments: Dictation was produced using [employer] dictation software. please excuse any grammatical, word or spelling errors. Chief Complaint: 31-year-old female well-known to emergency department for recurrence of headache and flank pain History of Present Illness: 31-year-old female she is well-known to emergency department for multiple visitations for abdominal pain and migraines. Patient states that she has another migraine. States that it is a care usual migraine. Patient also complaining of 1-2 days of right-sided flank pain. She has history of cholecystectomy. Denies any fever. No nausea or diarrhea. She reports that her symptoms do not feel like pancreatitis. The ROS documented in this emergency department record has been reviewed and confirmed by me. Those systems with pertinent positive or negative responses have been documented in the HPI. All other systems are other negative and/or noncontributory. - Related Data Home Medications Medication Instructions Recorded Confirmed ARIPiprazole IM SYRINGE [Abilify 400 mg IM Q30D 07/28/21 07/30/22 Maintena Syringe] Omeprazole 20 mg PO DAILY 11/16/21 07/30/22 QUEtiapine FUMARATE [SEROquel XR] 600 mg PO HS 11/16/21 07/30/22 Acetaminophen [Tylenol Extra 500 mg PO Q4H PRN 03/30/22 07/30/22 Strength] Insulin Aspart [NovoLOG Flexpen] See Protocol SQ DIRECTED 03/30/22 07/30/22 Insulin Glargine,Hum.rec.anlog 45 units SQ HS 03/30/22 07/30/22 [Lantus Solostar Pen] Naproxen [Naprosyn] 500 mg PO BID 03/30/22 07/30/22 Ondansetron Odt [Zofran ODT] 4 mg SL DAILY PRN 03/30/22 07/30/22 Propranolol HCl [Inderal] 60 mg PO DAILY 03/30/22 07/30/22 metFORMIN HCL [Glucophage] 1,000 mg PO DAILY 03/30/22 07/30/22 tiZANidine [Zanaflex] 4 mg PO BID PRN 03/30/22 07/30/22 Etonogestrel [Nexplanon] 68 mg INTRADERMA DIRECTED 06/22/22 07/30/22 traMADol HCl [Ultram] 50 mg PO Q8HR PRN 07/30/22 07/30/22 Previous Rx's Medication Instructions Recorded Albuterol Nebulized [Ventolin 2.5 mg INHALATION Q4H PRN #75 ml 06/07/22 Nebulized] Ibuprofen [Motrin] 800 mg PO Q8HR PRN #30 tab 06/07/22 Allergies Allergy/AdvReac Type Severity Reaction Status Date / Time bee pollen Allergy Severe Anaphylaxis Verified 07/30/22 09:34 haloperidol lactate Allergy Severe QUIT Verified 07/30/22 09:34 [From Haldol] BREATHING latex Allergy Severe RASH-THROAT Verified 07/30/22 09:34 CLOSES murrieta Allergy Anaphylaxis Verified 07/30/22 09:34 coconut Allergy Anaphylaxis Verified 07/30/22 09:34 pineapple Allergy Anaphylaxis Verified 07/30/22 09:34 spider venom Allergy Swelling Verified 07/30/22 09:34 Sulfa (Sulfonamide Allergy THROAT Verified 07/30/22 09:34 Antibiotics) SWELLS venom-wasp Allergy Swelling Verified 07/30/22 09:34 venom-wasp protein Allergy Swelling Verified 07/30/22 09:34 promethazine HCl AdvReac Severe Nausea & Verified 07/30/22 09:34 [From Phenergan] Vomiting tramadol AdvReac Severe Nausea & Verified 07/30/22 09:34 Vomiting amoxicillin AdvReac Nausea & Verified 07/30/22 09:34 Vomiting ANTS AdvReac Mild Anaphylaxis Uncoded 07/30/22 09:34 Review of Systems ROS Statement: Those systems with pertinent positive or pertinent negative responses have been documented in the HPI. ROS Other: All systems not noted in ROS Statement are negative. Past Medical History Past Medical History: Asthma, Diabetes Mellitus, GERD/Reflux Additional Past Medical History / Comment(s): migraines, degenerative disk disease, endometriosis, lupus, pancreatitis, DM2- insulin History of Any Multi-Drug Resistant Organisms: None Reported Past Surgical History: Cholecystectomy, Orthopedic Surgery Additional Past Surgical History / Comment(s): laparoscopc surgery for endometriosis, cyst removed from left foot, EGD, Past Anesthesia/Blood Transfusion Reactions: Previous Problems w/ Anesthesia Additional Past Anesthesia/Blood Transfusion Reaction / Comment(s): hard to wake up for 48-72 hours after laparoscopic surgery-was in hosp. for 3 days Past Psychological History: Anxiety, Depression, PTSD Smoking Status: Former smoker - Past Family History Mother Family Medical History: No Reported History Additional Family Medical History / Comment(s): hx migraines Father Family Medical History: Coronary Artery Disease (CAD), Hypertension Additional Family Medical History / Comment(s): ddd, alcoholism & drug use General Exam - General Exam Comments Initial Comments: PHYSICAL EXAM: General Impression: Alert and oriented x3, not in acute distress HEENT: Normocephalic atraumatic, extra-ocular movements intact, pupils equal and reactive to light bilaterally, mucous membranes moist. Cardiovascular: Heart regular rate and rhythm Chest: Able to complete full sentences, no retractions, no tachypnea Abdomen: abdomen soft, non-tender, non-distended, no organomegaly, negative Velasquez sign Musculoskeletal: Pulses present and equal in all extremities, no peripheral edema Motor: no focal deficits noted Neurological: CN II-XII grossly intact, no focal motor or sensory deficits noted Skin: Intact with no visualized rashes Psych: Normal affect and mood Limitations: no limitations Course Vital Signs 08/01/22 08/01/22 12:40 14:24 Temperature 98 F 98.1 F Pulse Rate 89 97 Respiratory 20 17 Rate Blood Pressure 116/84 115/82 O2 Sat by Pulse 98 99 Oximetry Medical Decision Making - Medical Decision Making Was pt. sent in by a medical professional or institution (, PA, SCHOOL CHILDCARE ATTENDANT, urgent care, hospital, or usp...) When possible be specific @ -No Did you speak to anyone other than the patient for history (EMS, parent, family, police, friend...)? What history was obtained from this source @ -No Did you review nursing and triage notes (agree or disagree)? Why? @ -I reviewed and agree with nursing and triage notes Were old charts reviewed (outside hosp., previous admission, EMS record, old EKG, old radiological studies, urgent care reports/EKG's, usp records)? Report findings @ -Prior charts were reviewed showing he several times patient was in the emergency room Differential Diagnosis (chest pain, altered mental status, abdominal pain women, abdominal pain men, vaginal bleeding, musculoskeletal, weakness, fever, dyspnea, syncope, headache, dizziness, GI bleed, back pain, seizure, CVA, palpatations, mental health)? @ -Differential Abdominal Pain Women: Appendicitis, Cholecystitis, diverticulosis, ischemic bowel, pancreatitis, hepatitis, UTI, gastroenteritis, AAA, incarcerated hernia, bowel obstruction, constipation, inflammatory bowel, hepatitis, peptic ulcer disease, splenic infarction, perforated viscus, vulvitis, ovarian torsion, PID, kidney stone, placenta abruption, this is not meant to be an all-inclusive list EKG interpreted by me (3pts min.). @ -None done X-rays interpreted by me (1pt min.). @ -None done CT interpreted by me (1pt min.). @ -None done U/S interpreted by me (1pt. min.). @ -None done What testing was considered but not performed or refused? (CT, X-rays, U/S, labs)? Why? @ -None What meds were considered but not given or refused? Why? @ -None Did you discuss the management of the patient with other professionals (professionals i.e. , PA, SCHOOL CHILDCARE ATTENDANT, lab, RT, psych nurse, social insurance analyst, retail product demo specialist, teacher, credit products officer, case management manager)? Give summary @ -No Was smoking cessation discussed for >3mins.? @ -No Was critical care preformed (if so, how long)? @ -No Were there social determinants of health that impacted care today? How? (Homelessness, low income, unemployed, alcoholism, drug addiction, transportation, low edu. Level, literacy, decrease access to med. care, senior care, rehab)? @ -Frequent visits to the emergency department Was there de-escalation of care discussed even if they declined (Discuss DNR or withdrawal of care, Hospice)? DNR status @ -No What co-morbidities impacted this encounter? (DM, HTN, Smoking, COPD, CAD, Cancer, CVA, ARF, Chemo, Hep., AIDS, mental health diagnosis, sleep apnea, morbid obesity)? @ -None Was patient admitted / discharged? Hospital course, mention meds given and route, prescriptions, significant lab abnormalities, going to OR and other pertinent info. @ -31-year-old female well-known to emergency department read presents to emergency department for headache and abdominal pain. Patient has been evaluated by myself on multiple occasions. She appears to be at baseline. She is history of pancreatitis. She has chronic migraines.Laboratory evaluation obtained. CBC, metabolic panel unremarkable. Lipase level is normal. Patient given headache cocktail and discharge. Undiagnosed new problem with uncertain prognosis? @ -No Drug Therapy requiring intensive monitoring for toxicity (Heparin, Nitro, Insulin, Cardizem)? @ -No Were any procedures done? @ -No Diagnosis/symptom? Acute, or Chronic, or Acute on Chronic? Uncomplicated (without systemic symptoms) or Complicated (systemic symptoms)? @ -1. Acute on chronic abdominal pain, 2. Acute on chronic headache Side effects of treatment? @ -No Exacerbation, Progression, or Severe Exacerbation? @ -No Poses a threat to life or bodily function? How? (Chest pain, [place], [place], pneumonia, PE, COPD, DKA, ARF, appy, cholecystitis, CVA, Diverticulitis, Homicidal, Suicidal, threat to staff... and all critical care pts) @ -No - Lab Data Result diagrams: 08/01/22 13:40 08/01/22 13:40 Lab Results 08/01/22 08/01/22 Range/Units 13:40 13:40 WBC 4.7 (3.8-10.6) k/uL RBC 4.08 (3.80-5.40) m/uL Hgb 12.2 (11.4-16.0) gm/dL Hct 36.6 (34.0-46.0) % MCV 89.9 (80.0-100.0) fL MCH 29.8 (25.0-35.0) pg MCHC 33.2 (31.0-37.0) g/dL RDW 15.0 (11.5-15.5) % Plt Count 235 (150-450) k/uL MPV 7.8 Neutrophils % 54 % Lymphocytes % 38 % Monocytes % 3 % Eosinophils % 3 % Basophils % 0 % Neutrophils # 2.6 (1.3-7.7) k/uL Lymphocytes # 1.8 (1.0-4.8) k/uL Monocytes # 0.1 (0-1.0) k/uL Eosinophils # 0.1 (0-0.7) k/uL Basophils # 0.0 (0-0.2) k/uL Sodium 136 L (137-145) mmol/L Potassium 4.4 (3.5-5.1) mmol/L Chloride 103 (98-107) mmol/L Carbon Dioxide 24 (22-30) mmol/L Anion Gap 9 mmol/L BUN 8 (7-17) mg/dL Creatinine 0.63 (0.52-1.04) mg/dL Est GFR (CKD-EPI)AfAm >90 (>60 ml/min/1.73 sqM) Est GFR (CKD-EPI)NonAf >90 (>60 ml/min/1.73 sqM) Glucose 198 H (74-99) mg/dL Calcium 10.4 H (8.4-10.2) mg/dL Total Bilirubin 0.3 (0.2-1.3) mg/dL AST 21 (14-36) U/L ALT 22 (4-34) U/L Alkaline Phosphatase 86 (38-126) U/L Total Protein 7.1 (6.3-8.2) g/dL Albumin 3.9 (3.5-5.0) g/dL Lipase 119 (23-300) U/L Disposition Clinical Impression: Chronic migraine, Chronic abdominal pain Disposition: HOME SELF-CARE Condition: Good Instructions (If sedation given, give patient instructions): Abdominal Pain (ED) Is patient prescribed a controlled substance at d/c from ED?: No Referrals: Isi Carolina MD [Primary Care Provider] - 1-2 days Time of Disposition: 14:44
[2022-08-01 14:13] LABS: Basophils % (A) 0 %; Eosinophils # (A) 0.1 k/uL (0-0.7); Eosinophils % (A) 3 %; HCT 36.6 % (34.0-46.0); HGB 12.2 gm/dL (11.4-16.0); Lymphocytes # (A) 1.8 k/uL (1.0-4.8); Lymphocytes % (A) 38 %; MCH 29.8 pg (25.0-35.0); MCHC 33.2 g/dL (31.0-37.0); MCV 89.9 fL (80.0-100.0); Mean Platelet Volume 7.8; Monocytes # (A) 0.1 k/uL (0-1.0); Monocytes % (A) 3 %; Neutrophils # (A) 2.6 k/uL (1.3-7.7); Neutrophils % (A) 54 %; Platelet Count 235 k/uL (150-450); RBC 4.08 m/uL (3.80-5.40); WBC 4.7 k/uL (3.8-10.6)
[2022-08-01 14:24] VITALS: BP 115/82; PULSE 97; RESP 17; TEMP 98.1
[2022-08-01 14:29] LABS: ALT 22 U/L (4-34); AST 21 U/L (14-36); African American GFR (CKD) >90 (>60 ml/min/1.73 sqM); Albumin 3.9 g/dL (3.5-5.0); Alkaline Phosphatase 86 U/L (38-126); Anion Gap 9 mmol/L; Blood Urea Nitrogen 8 mg/dL (7-17); Calcium 10.4 mg/dL (8.4-10.2); Carbon Dioxide 24 mmol/L (22-30); Chloride 103 mmol/L (98-107); Glucose 198 mg/dL (74-99); Lipase 119 U/L (23-300); Non-African American GFR(CKD) >90 (>60 ml/min/1.73 sqM); Potassium 4.4 mmol/L (3.5-5.1); Sodium 136 mmol/L (137-145); Total Bilirubin 0.3 mg/dL (0.2-1.3); Total Protein 7.1 g/dL (6.3-8.2)
[2022-08-01 14:43] LABS: Appearance,Urine Cloudy (Clear); Bacteria,Urine Many /hpf; Bilirubin,Urine Negative (Negative); Blood,Urine Negative (Negative); Color,Urine Light Yellow; Glucose,Urine (UA) 2+ (Negative); Ketones,Urine Negative (Negative); Leukocyte Esterase,Urine Small (Negative); Mucus,Urine Occasional /hpf; Nitrite,Urine Negative (Negative); PH, Urine 5.5 (5.0-8.0); Protein,Urine Negative (Negative); RBC,Urine 2 /hpf (0-5); Specific Gravity,Urine 1.012 (1.001-1.035); Squamous Epithelial Cell,Urine 3 /hpf (0-4); Urobilinogen,Urine <2.0 mg/dL (<2.0); WBC,Urine 2 /hpf (0-5)
== END 2022-08-01 15:10 | disposition home or self-care (01) ==
LOC: EC 12:31
DX: G43.909 Migraine, unspecified, not intractable, without status migrainosus (principal); G89.29 Other chronic pain; R10.9 Unspecified abdominal pain; E11.9 Type 2 diabetes mellitus without complications; J45.909 Unspecified asthma, uncomplicated; K21.9 Gastro-esophageal reflux disease without esophagitis; F32.A Depression, unspecified; F41.9 Anxiety disorder, unspecified; Z79.4 Long term (current) use of insulin; Z79.84 Long term (current) use of oral hypoglycemic drugs; Z79.899 Other long term (current) drug therapy; Z87.891 Personal history of nicotine dependence; Z88.0 Allergy status to penicillin; Z88.2 Allergy status to sulfonamides; Z88.5 Allergy status to narcotic agent; Z88.8 Allergy status to other drugs, medicaments and biological substances; Z91.030 Bee allergy status; Z91.040 Latex allergy status; Z91.038 Other insect allergy status; Z91.018 Allergy to other foods; Z90.49 Acquired absence of other specified parts of digestive tract
CPT/HCPCS: 36415; 80053; 83690; 85025; 81001; 99283; 96374; 96375 ×2; J1200; J2765; J1885

== ENCOUNTER 2022-08-04 03:59 | Emergency (ER) | payer OTHER ==
[2022-08-04] MEDS ORDERED: SODIUM CHLORIDE 0.9% 1,000 ML IV STA (06:08)
[2022-08-04] MEDS ORDERED: ONDANSETRON 4 MG/2 ML VIAL IVP STA (06:08)
[2022-08-04] MEDS ORDERED: SODIUM CHLORIDE 0.9% 1,000 ML IV ONE (06:08)
[2022-08-04] MEDS ORDERED: KETOROLAC 15 MG/ML 1 ML VIAL IVP STA (06:24)
[2022-08-04] MEDS ORDERED: diphenhydrAMINE 50 MG/ML 1 ML VIAL IVP STA (06:24)
--- NOTE | 2022-08-04 06:49 | ED ---
Abdominal Pain HPI - General Chief Complaint: Abdominal Pain Stated Complaint: abd pain, vomiting Time Seen by Provider: 08/04/22 05:51 Source: patient Mode of arrival: ambulatory Limitations: no limitations - History of Present Illness Initial Comments: This patient is a 31-year-old woman with history of pancreas divisum and chronic abdominal pain, who states that she seems to be having a flareup of pain since about or p.m. She has had multiple episodes of vomiting and continues to have nausea. She indicates pain across the upper abdomen. It is aching, constant, no other worsening or relieving factors. No fever or chills. No chest pain or dyspnea. No cough. No change in bowel movements or urination. MD Complaint: abdominal pain Onset/Timin -: hour(s) Location: LUQ, RUQ Radiation: none Migration to: no migration Severity: severe Quality: aching Consistency: constant Improves With: nothing Worsens With: nothing Associated Symptoms: nausea, vomiting - Related Data Home Medications Medication Instructions Recorded Confirmed ARIPiprazole IM SYRINGE [Abilify 400 mg IM Q30D 07/28/21 07/30/22 Maintena Syringe] Omeprazole 20 mg PO DAILY 11/16/21 07/30/22 QUEtiapine FUMARATE [SEROquel XR] 600 mg PO HS 11/16/21 07/30/22 Acetaminophen [Tylenol Extra 500 mg PO Q4H PRN 03/30/22 07/30/22 Strength] Insulin Aspart [NovoLOG Flexpen] See Protocol SQ DIRECTED 03/30/22 07/30/22 Insulin Glargine,Hum.rec.anlog 45 units SQ HS 03/30/22 07/30/22 [Lantus Solostar Pen] Naproxen [Naprosyn] 500 mg PO BID 03/30/22 07/30/22 Ondansetron Odt [Zofran ODT] 4 mg SL DAILY PRN 03/30/22 07/30/22 Propranolol HCl [Inderal] 60 mg PO DAILY 03/30/22 07/30/22 metFORMIN HCL [Glucophage] 1,000 mg PO DAILY 03/30/22 07/30/22 tiZANidine [Zanaflex] 4 mg PO BID PRN 03/30/22 07/30/22 Etonogestrel [Nexplanon] 68 mg INTRADERMA DIRECTED 06/22/22 07/30/22 traMADol HCl [Ultram] 50 mg PO Q8HR PRN 07/30/22 Previous Rx's Medication Instructions Recorded Albuterol Nebulized [Ventolin 2.5 mg INHALATION Q4H PRN #75 ml 06/07/22 Nebulized] Ibuprofen [Motrin] 800 mg PO Q8HR PRN #30 tab 06/07/22 Allergies Allergy/AdvReac Type Severity Reaction Status Date / Time bee pollen Allergy Severe Anaphylaxis Verified 08/06/22 07:24 haloperidol lactate Allergy Severe QUIT Verified 08/06/22 07:24 [From Haldol] BREATHING latex Allergy Severe RASH-THROAT Verified 08/06/22 07:24 CLOSES [place] Allergy Anaphylaxis Verified 08/06/22 07:24 coconut Allergy Anaphylaxis Verified 08/06/22 07:24 pineapple Allergy Anaphylaxis Verified 08/06/22 07:24 spider venom Allergy Swelling Verified 08/06/22 07:24 Sulfa (Sulfonamide Allergy THROAT Verified 08/06/22 07:24 Antibiotics) SWELLS venom-wasp Allergy Swelling Verified 08/06/22 07:24 venom-wasp protein Allergy Swelling Verified 08/06/22 07:24 promethazine HCl AdvReac Severe Nausea & Verified 08/06/22 07:24 [From Phenergan] Vomiting tramadol AdvReac Severe Nausea & Verified 08/06/22 07:24 Vomiting amoxicillin AdvReac Nausea & Verified 08/06/22 07:24 Vomiting ANTS AdvReac Mild Anaphylaxis Uncoded 08/06/22 07:24 Review of Systems ROS Statement: Those systems with pertinent positive or pertinent negative responses have been documented in the HPI. ROS Other: All systems not noted in ROS Statement are negative. Constitutional: Denies: fever, chills Respiratory: Denies: cough, dyspnea Cardiovascular: Denies: chest pain, palpitations Gastrointestinal: Reports: abdominal pain, nausea, vomiting. Denies: diarrhea, constipation, melena, hematochezia Genitourinary: Denies: dysuria, hematuria Musculoskeletal: Denies: back pain Skin: Denies: rash Neurological: Denies: headache, weakness Past Medical History Past Medical History: Asthma, Diabetes Mellitus, GERD/Reflux Additional Past Medical History / Comment(s): migraines, degenerative disk disease, endometriosis, lupus, pancreatitis, DM2- insulin History of Any Multi-Drug Resistant Organisms: None Reported Past Surgical History: Cholecystectomy, Orthopedic Surgery Additional Past Surgical History / Comment(s): laparoscopc surgery for endometriosis, cyst removed from left foot, EGD, Past Anesthesia/Blood Transfusion Reactions: Previous Problems w/ Anesthesia Additional Past Anesthesia/Blood Transfusion Reaction / Comment(s): hard to wake up for 48-72 hours after laparoscopic surgery-was in hosp. for 3 days Past Psychological History: Anxiety, Depression, PTSD Smoking Status: Former smoker - Past Family History Mother Family Medical History: No Reported History Additional Family Medical History / Comment(s): hx migraines Father Family Medical History: Coronary Artery Disease (CAD), Hypertension Additional Family Medical History / Comment(s): ddd, alcoholism & drug use General Exam Limitations: no limitations General appearance: alert, in no apparent distress Head exam: Present: atraumatic, normocephalic Eye exam: Present: normal appearance. Absent: scleral icterus, conjunctival injection ENT exam: Present: mucous membranes dry Neck exam: Present: normal inspection Respiratory exam: Present: normal lung sounds bilaterally. Absent: respiratory distress, wheezes, rales, rhonchi, stridor Cardiovascular Exam: Present: regular rate, normal rhythm, normal heart sounds. Absent: systolic murmur, diastolic murmur, rubs, gallop GI/Abdominal exam: Present: soft. Absent: distended, tenderness, guarding, rebound, rigid, mass Extremities exam: Present: normal inspection, normal capillary refill. Absent: pedal edema, calf tenderness Back exam: Present: normal inspection. Absent: CVA tenderness (R), CVA tenderness (L) Neurological exam: Present: alert Skin exam: Present: warm, dry, intact, normal color. Absent: rash Course Vital Signs 08/04/22 08/04/22 08/04/22 04:00 06:30 10:08 Temperature 97.7 F 97.8 F Pulse Rate 110 H 80 88 Respiratory 18 22 18 Rate Blood Pressure 109/79 113/79 134/70 O2 Sat by Pulse 97 97 97 Oximetry Medical Decision Making - Medical Decision Making This patient is a 31-year-old woman who presents with a flareup of her chronic abdominal pain. She has had multiple rounds of vomiting and therefore given IV fluid, antiemetic, analgesic. Symptoms are improved and we discussed appropriate further care and follow-up as well as return parameters. Was pt. sent in by a medical professional or institution (, SADE, SUPERVISOR ELECTRIC MOTOR TESTING, urgent care, hospital, or senior care...) When possible be specific @ -[No] Did you speak to anyone other than the patient for history (EMS, parent, family, police, friend...)? What history was obtained from this source @ -[No] Did you review nursing and triage notes (agree or disagree)? Why? @ -[I reviewed and agree with nursing and triage notes] Were old charts reviewed (outside hosp., previous admission, EMS record, old EKG, old radiological studies, urgent care reports/EKG's, senior care records)? Report findings @ -[No old charts were reviewed] Differential Diagnosis (chest pain, altered mental status, abdominal pain women, abdominal pain men, vaginal bleeding, weakness, fever, dyspnea, syncope, headache, dizziness, GI bleed, back pain, seizure, CVA, palpatations, mental health, musculoskeletal)? @ -[Differential Abdominal Pain Women: Appendicitis, Cholecystitis, diverticulosis, ischemic bowel, pancreatitis, hepatitis, UTI, gastroenteritis, AAA, incarcerated hernia, bowel obstruction, constipation, inflammatory bowel, hepatitis, peptic ulcer disease, splenic infarction, perforated viscus, vulvitis, ovarian torsion, PID, kidney stone, placenta abruption, this is not meant to be an all-inclusive list EKG interpreted by me (3pts min.). @ -[As above] X-rays interpreted by me (1pt min.). @ -[None done] CT interpreted by me (1pt min.). @ -[None done] U/S interpreted by me (1pt. min.). @ -[None done] What testing was considered but not performed or refused? (CT, X-rays, U/S, labs)? Why? @ -[None] What meds were considered but not given or refused? Why? @ -[None] Did you discuss the management of the patient with other professionals (professionals i.e. SADE López, SUPERVISOR ELECTRIC MOTOR TESTING, lab, RT, psych nurse, oncology social work, shipbuilding draftsperson, teacher, sba business development officer, housing case manager)? Give summary @ -[No] Was smoking cessation discussed for >3mins.? @ -[No] Was critical care preformed (if so, how long)? @ -[No] Were there social determinants of health that impacted care today? How? (Homelessness, low income, unemployed, alcoholism, drug addiction, transportation, low edu. Level, literacy, decrease access to med. care, snf, rehab)? @ -[No] Was there de-escalation of care discussed even if they declined (Discuss DNR or withdrawal of care, Hospice)? DNR status @ -[No] What co-morbidities impacted this encounter? (DM, HTN, Smoking, COPD, CAD, Cancer, CVA, ARF, Chemo, Hep., AIDS, mental health diagnosis, sleep apnea, morbid obesity)? @ -[None] Was patient admitted / discharged? Hospital course, mention meds given and route, prescriptions, significant lab abnormalities, going to OR and other pertinent info. @ -[Discharged Undiagnosed new problem with uncertain prognosis? @ -[No] Drug Therapy requiring intensive monitoring for toxicity (Heparin, Nitro, Insulin, Cardizem)? @ -[No] Were any procedures done? @ -[No] Diagnosis/symptom? @ -[Acute exacerbation of chronic abdominal pain Acute, or Chronic, or Acute on Chronic? @ -[default] Uncomplicated (without systemic symptoms) or Complicated (systemic symptoms)? @ -[Uncomplicated Side effects of treatment? @ -[No] Exacerbation, Progression, or Severe Exacerbation? @ -[No] Poses a threat to life or bodily function? How? (Chest pain, [place], [place], pneumonia, PE, COPD, DKA, ARF, appy, cholecystitis, CVA, Diverticulitis, Homicidal, Suicidal, threat to staff... and all critical care pts) @ -[No] Disposition Clinical Impression: Chronic abdominal pain Disposition: HOME SELF-CARE Condition: Fair Instructions (If sedation given, give patient instructions): Abdominal Pain (ED) Is patient prescribed a controlled substance at d/c from ED?: No Referrals: Isi Carolina MD [Primary Care Provider] - 1-2 days
[2022-08-04 10:09] VITALS: BP 134/70; PULSE 88; RESP 18; TEMP 97.8
== END 2022-08-04 10:09 | disposition home or self-care (01) ==
LOC: EC 03:59
DX: G89.29 Other chronic pain (principal); R10.11 Right upper quadrant pain; R10.12 Left upper quadrant pain; E11.9 Type 2 diabetes mellitus without complications; F32.A Depression, unspecified; F41.9 Anxiety disorder, unspecified; J45.909 Unspecified asthma, uncomplicated; K21.9 Gastro-esophageal reflux disease without esophagitis; Z79.1 Long term (current) use of non-steroidal anti-inflammatories (NSAID); Z79.84 Long term (current) use of oral hypoglycemic drugs; Z79.899 Other long term (current) drug therapy; Z87.891 Personal history of nicotine dependence; Z88.0 Allergy status to penicillin; Z88.1 Allergy status to other antibiotic agents; Z88.2 Allergy status to sulfonamides; Z88.5 Allergy status to narcotic agent; Z88.8 Allergy status to other drugs, medicaments and biological substances; Z91.030 Bee allergy status; Z91.040 Latex allergy status; Z90.49 Acquired absence of other specified parts of digestive tract
CPT/HCPCS: 99284; 96374; 96375 ×2; 96361 ×4; J1200; J2405; J1885

== ENCOUNTER 2022-08-06 07:10 | Emergency (ER) | payer BC, OTHER ==
[2022-08-06 07:24] VITALS: BP 105/79; PULSE 71; RESP 22; TEMP 97.5
[2022-08-06] MEDS ORDERED: KETOROLAC 15 MG/ML 1 ML VIAL IVP STA (07:36)
--- NOTE | 2022-08-06 07:40 | ED ---
General Adult HPI - General Chief complaint: Abdominal Pain Stated complaint: Abd Pain,Vomiting Time Seen by Provider: 08/06/22 07:14 Source: patient, RN notes reviewed, old records reviewed Mode of arrival: ambulatory Limitations: no limitations - History of Present Illness Initial comments: 31-year-old female with chronic abdominal pain presenting for evaluation of right upper quadrant abdominal pain. Patient states the pain this time has been present for the past 24 hours. She was in the emergency department multiple times this month with same complaint. She states she's had several episodes of vomiting as well. No fever. Patient has had previous cholecystectomy. Her home medications for nausea and pain are now working well to control her symptoms. - Related Data Home Medications Medication Instructions Recorded Confirmed ARIPiprazole IM SYRINGE [Abilify 400 mg IM Q30D 07/28/21 07/30/22 Maintena Syringe] Omeprazole 20 mg PO DAILY 11/16/21 07/30/22 QUEtiapine FUMARATE [SEROquel XR] 600 mg PO HS 11/16/21 07/30/22 Acetaminophen [Tylenol Extra 500 mg PO Q4H PRN 03/30/22 07/30/22 Strength] Insulin Aspart [NovoLOG Flexpen] See Protocol SQ DIRECTED 03/30/22 07/30/22 Insulin Glargine,Hum.rec.anlog 45 units SQ HS 03/30/22 07/30/22 [Lantus Solostar Pen] Naproxen [Naprosyn] 500 mg PO BID 03/30/22 07/30/22 Ondansetron Odt [Zofran ODT] 4 mg SL DAILY PRN 03/30/22 07/30/22 Propranolol HCl [Inderal] 60 mg PO DAILY 03/30/22 07/30/22 metFORMIN HCL [Glucophage] 1,000 mg PO DAILY 03/30/22 07/30/22 tiZANidine [Zanaflex] 4 mg PO BID PRN 03/30/22 07/30/22 Etonogestrel [Nexplanon] 68 mg INTRADERMA DIRECTED 06/22/22 07/30/22 traMADol HCl [Ultram] 50 mg PO Q8HR PRN 07/30/22 Previous Rx's Medication Instructions Recorded Albuterol Nebulized [Ventolin 2.5 mg INHALATION Q4H PRN #75 ml 06/07/22 Nebulized] Ibuprofen [Motrin] 800 mg PO Q8HR PRN #30 tab 06/07/22 Allergies Allergy/AdvReac Type Severity Reaction Status Date / Time bee pollen Allergy Severe Anaphylaxis Verified 08/06/22 07:24 haloperidol lactate Allergy Severe QUIT Verified 08/06/22 07:24 [From Haldol] BREATHING latex Allergy Severe RASH-THROAT Verified 08/06/22 07:24 CLOSES [place] Allergy Anaphylaxis Verified 08/06/22 07:24 coconut Allergy Anaphylaxis Verified 08/06/22 07:24 pineapple Allergy Anaphylaxis Verified 08/06/22 07:24 spider venom Allergy Swelling Verified 08/06/22 07:24 Sulfa (Sulfonamide Allergy THROAT Verified 08/06/22 07:24 Antibiotics) SWELLS venom-wasp Allergy Swelling Verified 08/06/22 07:24 venom-wasp protein Allergy Swelling Verified 08/06/22 07:24 promethazine HCl AdvReac Severe Nausea & Verified 08/06/22 07:24 [From Phenergan] Vomiting tramadol AdvReac Severe Nausea & Verified 08/06/22 07:24 Vomiting amoxicillin AdvReac Nausea & Verified 08/06/22 07:24 Vomiting ANTS AdvReac Mild Anaphylaxis Uncoded 08/06/22 07:24 Review of Systems ROS Statement: Those systems with pertinent positive or pertinent negative responses have been documented in the HPI. ROS Other: All systems not noted in ROS Statement are negative. Past Medical History Past Medical History: Asthma, Diabetes Mellitus, GERD/Reflux Additional Past Medical History / Comment(s): migraines, degenerative disk disease, endometriosis, lupus, pancreatitis, DM2- insulin History of Any Multi-Drug Resistant Organisms: None Reported Past Surgical History: Cholecystectomy, Orthopedic Surgery Additional Past Surgical History / Comment(s): laparoscopc surgery for endometriosis, cyst removed from left foot, EGD, Past Anesthesia/Blood Transfusion Reactions: Previous Problems w/ Anesthesia Additional Past Anesthesia/Blood Transfusion Reaction / Comment(s): hard to wake up for 48-72 hours after laparoscopic surgery-was in hosp. for 3 days Past Psychological History: Anxiety, Depression, PTSD Smoking Status: Former smoker Past Alcohol Use History: None Reported Past Drug Use History: None Reported - Past Family History Mother Family Medical History: No Reported History Additional Family Medical History / Comment(s): hx migraines Father Family Medical History: Coronary Artery Disease (CAD), Hypertension Additional Family Medical History / Comment(s): ddd, alcoholism & drug use General Exam Limitations: no limitations General appearance: alert, in no apparent distress Head exam: Present: atraumatic, normocephalic Eye exam: Present: normal appearance, PERRL ENT exam: Present: mucous membranes dry Neck exam: Present: normal inspection Respiratory exam: Present: normal lung sounds bilaterally. Absent: respiratory distress, wheezes Cardiovascular Exam: Present: regular rate, normal rhythm GI/Abdominal exam: Present: soft, tenderness (Right upper quadrant). Absent: distended, guarding Neurological exam: Present: alert, oriented X3 Psychiatric exam: Present: normal affect, normal mood Skin exam: Present: warm, dry, intact. Absent: cyanosis, diaphoretic Course Vital Signs 08/06/22 07:22 Temperature 97.5 F L Pulse Rate 71 Respiratory 22 Rate Blood Pressure 105/79 O2 Sat by Pulse 97 Oximetry Medical Decision Making - Medical Decision Making Was pt. sent in by a medical professional or institution (, PA, DRY ICE MACHINE OPERATOR, urgent care, hospital, or skilled nursing...) When possible be specific @ -No Did you speak to anyone other than the patient for history (EMS, parent, family, police, friend...)? What history was obtained from this source @ -No Did you review nursing and triage notes (agree or disagree)? Why? @ -I reviewed and agree with nursing and triage notes Were old charts reviewed (outside hosp., previous admission, EMS record, old EKG, old radiological studies, urgent care reports/EKG's, skilled nursing records)? Report findings @ -Previous laboratory testing, previous encounters for chronic pain Differential Diagnosis (chest pain, altered mental status, abdominal pain women, abdominal pain men, vaginal bleeding, weakness, fever, dyspnea, syncope, headache, dizziness, GI bleed, back pain, seizure, CVA, palpatations, mental health, musculoskeletal)? @ -Differential Abdominal Pain Women: Appendicitis, Cholecystitis, diverticulosis, ischemic bowel, pancreatitis, hepatitis, UTI, gastroenteritis, AAA, incarcerated hernia, bowel obstruction, constipation, inflammatory bowel, hepatitis, peptic ulcer disease, splenic infarction, perforated viscus, vulvitis, ovarian torsion, PID, kidney stone, placenta abruption, this is not meant to be an all-inclusive list EKG interpreted by me (3pts min.). @ -As above X-rays interpreted by me (1pt min.). @ -None done CT interpreted by me (1pt min.). @ -None done U/S interpreted by me (1pt. min.). @ -None done What testing was considered but not performed or refused? (CT, X-rays, U/S, labs)? Why? @ -None What meds were considered but not given or refused? Why? @ -None Did you discuss the management of the patient with other professionals (professionals i.e. DrSuzie, PA, DRY ICE MACHINE OPERATOR, lab, RT, psych nurse, social sciences chair, cosmetic assembler, teacher, chief talent officer, classification case manager)? Give summary @ -No Was smoking cessation discussed for >3mins.? @ -No Was critical care preformed (if so, how long)? @ -No Were there social determinants of health that impacted care today? How? (Homelessness, low income, unemployed, alcoholism, drug addiction, transportation, low edu. Level, literacy, decrease access to med. care, prison, rehab)? @ -No Was there de-escalation of care discussed even if they declined (Discuss DNR or withdrawal of care, Hospice)? DNR status @ -No What co-morbidities impacted this encounter? (DM, HTN, Smoking, COPD, CAD, Cancer, CVA, ARF, Chemo, Hep., AIDS, mental health diagnosis, sleep apnea, morbid obesity)? @ -Diabetes, chronic abdominal pain Was patient admitted / discharged? Hospital course, mention meds given and route, prescriptions, significant lab abnormalities, going to OR and other perti nent info. @ -31-year-old female with chronic abdominal pain presenting for reevaluation. Patient is hemodynamically stable. She has a normal white blood cell count, stable hemoglobin. Mild to light lead abnormalities. Mild elevation in lipase. Given antiemetics, pain control, IV fluids. Patient felt to be stable for discharge at this time with outpatient follow-up. Undiagnosed new problem with uncertain prognosis? @ -No Drug Therapy requiring intensive monitoring for toxicity (Heparin, Nitro, Insulin, Cardizem)? @ -No Were any procedures done? @ -No Diagnosis/symptom? @ -Abdominal pain Acute, or Chronic, or Acute on Chronic? @ -Chronic Uncomplicated (without systemic symptoms) or Complicated (systemic symptoms)? @Complicated Side effects of treatment? @ -No Exacerbation, Progression, or Severe Exacerbation? @ -No Poses a threat to life or bodily function? How? (Chest pain, [place], [place], pneumonia, PE, COPD, DKA, ARF, appy, cholecystitis, CVA, Diverticulitis, Homicidal, Suicidal, threat to staff... and all critical care pts) @ -No - Lab Data Result diagrams: 08/06/22 07:38 08/06/22 07:38 Lab Results 08/06/22 08/06/22 Range/Units 07:38 07:38 WBC 5.8 (3.8-10.6) k/uL RBC 4.06 (3.80-5.40) m/uL Hgb 11.7 (11.4-16.0) gm/dL Hct 35.1 (34.0-46.0) % MCV 86.5 (80.0-100.0) fL MCH 28.8 (25.0-35.0) pg MCHC 33.3 (31.0-37.0) g/dL RDW 14.8 (11.5-15.5) % Plt Count 192 (150-450) k/uL MPV 7.7 Neutrophils % 64 % Lymphocytes % 29 % Monocytes % 4 % Eosinophils % 2 % Basophils % 1 % Neutrophils # 3.7 (1.3-7.7) k/uL Lymphocytes # 1.7 (1.0-4.8) k/uL Monocytes # 0.2 (0-1.0) k/uL Eosinophils # 0.1 (0-0.7) k/uL Basophils # 0.0 (0-0.2) k/uL Sodium 132 L (137-145) mmol/L Potassium 4.3 (3.5-5.1) mmol/L Chloride 104 (98-107) mmol/L Carbon Dioxide 19 L (22-30) mmol/L Anion Gap 9 mmol/L BUN 10 (7-17) mg/dL Creatinine 0.50 L (0.52-1.04) mg/dL Est GFR (CKD-EPI)AfAm >90 (>60 ml/min/1.73 sqM) Est GFR (CKD-EPI)NonAf >90 (>60 ml/min/1.73 sqM) Glucose 184 H (74-99) mg/dL Calcium 10.0 (8.4-10.2) mg/dL Total Bilirubin 0.4 (0.2-1.3) mg/dL AST 22 (14-36) U/L ALT 19 (4-34) U/L Alkaline Phosphatase 66 (38-126) U/L Total Protein 6.4 (6.3-8.2) g/dL Albumin 3.4 L (3.5-5.0) g/dL Lipase 442 H (23-300) U/L Disposition Clinical Impression: Chronic abdominal pain Disposition: HOME SELF-CARE Condition: Fair Instructions (If sedation given, give patient instructions): Abdominal Pain (ED) Is patient prescribed a controlled substance at d/c from ED?: No Referrals: Isi Carolina MD [Primary Care Provider] - 1-2 days Time of Disposition: 10:01
[2022-08-06] MEDS ORDERED: ONDANSETRON 4 MG TAB PO STA (08:41)
[2022-08-06] MEDS: ONDANSETRON 4 MG/2 ML VIAL IVP STA ×2 (08:43→09:23)
[2022-08-06] MEDS: SODIUM CHLORIDE 0.9% 1,000 ML IV ONE ×2 (08:46→09:16)
[2022-08-06] MEDS ORDERED: ONDANSETRON 4 MG/2 ML VIAL IVP STA (09:23)
[2022-08-06 09:29] LABS: Basophils % (A) 1 %; Eosinophils # (A) 0.1 k/uL (0-0.7); Eosinophils % (A) 2 %; HCT 35.1 % (34.0-46.0); HGB 11.7 gm/dL (11.4-16.0); Lymphocytes # (A) 1.7 k/uL (1.0-4.8); Lymphocytes % (A) 29 %; MCH 28.8 pg (25.0-35.0); MCHC 33.3 g/dL (31.0-37.0); MCV 86.5 fL (80.0-100.0); Mean Platelet Volume 7.7; Monocytes # (A) 0.2 k/uL (0-1.0); Monocytes % (A) 4 %; Neutrophils # (A) 3.7 k/uL (1.3-7.7); Neutrophils % (A) 64 %; Platelet Count 192 k/uL (150-450); RBC 4.06 m/uL (3.80-5.40); RDW 14.8 % (11.5-15.5); WBC 5.8 k/uL (3.8-10.6)
[2022-08-06 09:35] LABS: ALT 19 U/L (4-34); AST 22 U/L (14-36); African American GFR (CKD) >90 (>60 ml/min/1.73 sqM); Albumin 3.4 g/dL (3.5-5.0); Alkaline Phosphatase 66 U/L (38-126); Anion Gap 9 mmol/L; Blood Urea Nitrogen 10 mg/dL (7-17); Carbon Dioxide 19 mmol/L (22-30); Chloride 104 mmol/L (98-107); Glucose 184 mg/dL (74-99); Lipase 442 U/L (23-300); Non-African American GFR(CKD) >90 (>60 ml/min/1.73 sqM); Potassium 4.3 mmol/L (3.5-5.1); Sodium 132 mmol/L (137-145); Total Bilirubin 0.4 mg/dL (0.2-1.3); Total Protein 6.4 g/dL (6.3-8.2)
== END 2022-08-06 10:09 | disposition home or self-care (01) ==
LOC: EC 07:10
DX: G89.29 Other chronic pain (principal); R10.11 Right upper quadrant pain; J45.909 Unspecified asthma, uncomplicated; E11.9 Type 2 diabetes mellitus without complications; K21.9 Gastro-esophageal reflux disease without esophagitis; F41.9 Anxiety disorder, unspecified; F32.A Depression, unspecified; Z87.891 Personal history of nicotine dependence; Z79.4 Long term (current) use of insulin; Z79.84 Long term (current) use of oral hypoglycemic drugs; Z79.899 Other long term (current) drug therapy; Z91.030 Bee allergy status; Z91.040 Latex allergy status; Z91.018 Allergy to other foods; Z88.0 Allergy status to penicillin; Z88.6 Allergy status to analgesic agent; Z88.8 Allergy status to other drugs, medicaments and biological substances; Z88.2 Allergy status to sulfonamides; Z88.1 Allergy status to other antibiotic agents; Z88.5 Allergy status to narcotic agent; Z90.49 Acquired absence of other specified parts of digestive tract
CPT/HCPCS: 99284 ×2; 96374 ×2; 96375 ×2; 96361 ×2; 36415; 80053; 83690; 85025; J2405; J1885

== ENCOUNTER 2022-08-13 02:03 | Emergency (ER) | payer OTHER ==
[2022-08-13 02:25] VITALS: BP 143/105; PULSE 106; RESP 18; TEMP 98.5
[2022-08-13] MEDS ORDERED: KETOROLAC 15 MG/ML 1 ML VIAL IM STA (02:31)
--- NOTE | 2022-08-13 02:33 | ED ---
General Adult HPI - General Chief complaint: Abdominal Pain Stated complaint: Abd Pain, Vomitting Time Seen by Provider: 08/13/22 02:20 Source: patient Mode of arrival: ambulatory Limitations: no limitations - History of Present Illness Initial comments: Dictation was produced using [email or web address] dictation software. please excuse any grammatical, word or spelling errors. Chief Complaint: 31-year-old female past medical history back otitis and chronic migraines presents to the ER for headache and abdominal pain History of Present Illness: Patient is a 31-year-old female she is well-known to emergency department should presents again to emergency department for headache and abdominal pain. Patient states her pancreatitis. She has not been admitted for pancreatitis in several months. Patient's chronic migraines. The ROS documented in this emergency department record has been reviewed and confirmed by me. Those systems with pertinent positive or negative responses have been documented in the HPI. All other systems are other negative and/or noncontributory. - Related Data Home Medications Medication Instructions Recorded Confirmed ARIPiprazole IM SYRINGE [Abilify 400 mg IM Q30D 07/28/21 07/30/22 Maintena Syringe] Omeprazole 20 mg PO DAILY 11/16/21 07/30/22 QUEtiapine FUMARATE [SEROquel XR] 600 mg PO HS 11/16/21 07/30/22 Acetaminophen [Tylenol Extra 500 mg PO Q4H PRN 03/30/22 07/30/22 Strength] Insulin Aspart [NovoLOG Flexpen] See Protocol SQ DIRECTED 03/30/22 07/30/22 Insulin Glargine,Hum.rec.anlog 45 units SQ HS 03/30/22 07/30/22 [Lantus Solostar Pen] Naproxen [Naprosyn] 500 mg PO BID 03/30/22 07/30/22 Ondansetron Odt [Zofran ODT] 4 mg SL DAILY PRN 03/30/22 07/30/22 Propranolol HCl [Inderal] 60 mg PO DAILY 03/30/22 07/30/22 metFORMIN HCL [Glucophage] 1,000 mg PO DAILY 03/30/22 07/30/22 tiZANidine [Zanaflex] 4 mg PO BID PRN 03/30/22 07/30/22 Etonogestrel [Nexplanon] 68 mg INTRADERMA DIRECTED 06/22/22 07/30/22 traMADol HCl [Ultram] 50 mg PO Q8HR PRN 07/30/22 Previous Rx's Medication Instructions Recorded Albuterol Nebulized [Ventolin 2.5 mg INHALATION Q4H PRN #75 ml 06/07/22 Nebulized] Ibuprofen [Motrin] 800 mg PO Q8HR PRN #30 tab 06/07/22 Allergies Allergy/AdvReac Type Severity Reaction Status Date / Time bee pollen Allergy Severe Anaphylaxis Verified 08/13/22 02:25 haloperidol lactate Allergy Severe QUIT Verified 08/13/22 02:25 [From Haldol] BREATHING latex Allergy Severe RASH-THROAT Verified 08/13/22 02:25 CLOSES [place] Allergy Anaphylaxis Verified 08/13/22 02:25 coconut Allergy Anaphylaxis Verified 08/13/22 02:25 pineapple Allergy Anaphylaxis Verified 08/13/22 02:25 spider venom Allergy Swelling Verified 08/13/22 02:25 Sulfa (Sulfonamide Allergy THROAT Verified 08/13/22 02:25 Antibiotics) SWELLS venom-wasp Allergy Swelling Verified 08/13/22 02:25 venom-wasp protein Allergy Swelling Verified 08/13/22 02:25 promethazine HCl AdvReac Severe Nausea & Verified 08/13/22 02:25 [From Phenergan] Vomiting tramadol AdvReac Severe Nausea & Verified 08/13/22 02:25 Vomiting amoxicillin AdvReac Nausea & Verified 08/13/22 02:25 Vomiting ANTS AdvReac Mild Anaphylaxis Uncoded 08/13/22 02:25 Review of Systems ROS Statement: Those systems with pertinent positive or pertinent negative responses have been documented in the HPI. ROS Other: All systems not noted in ROS Statement are negative. Past Medical History Past Medical History: Asthma, Diabetes Mellitus, GERD/Reflux Additional Past Medical History / Comment(s): migraines, degenerative disk disease, endometriosis, lupus, pancreatitis, DM2- insulin History of Any Multi-Drug Resistant Organisms: None Reported Past Surgical History: Cholecystectomy, Orthopedic Surgery Additional Past Surgical History / Comment(s): laparoscopc surgery for endometriosis, cyst removed from left foot, EGD, Past Anesthesia/Blood Transfusion Reactions: Previous Problems w/ Anesthesia Additional Past Anesthesia/Blood Transfusion Reaction / Comment(s): hard to wake up for 48-72 hours after laparoscopic surgery-was in hosp. for 3 days Past Psychological History: Anxiety, Depression, PTSD Smoking Status: Former smoker, Vaper Past Alcohol Use History: None Reported Past Drug Use History: Marijuana - Past Family History Mother Family Medical History: No Reported History Additional Family Medical History / Comment(s): hx migraines Father Family Medical History: Coronary Artery Disease (CAD), Hypertension Additional Family Medical History / Comment(s): ddd, alcoholism & drug use General Exam - General Exam Comments Initial Comments: PHYSICAL EXAM: General Impression: Alert and oriented x3, not in acute distress HEENT: Normocephalic atraumatic, extra-ocular movements intact, pupils equal and reactive to light bilaterally, mucous membranes moist. Cardiovascular: Heart regular rate and rhythm Chest: Able to complete full sentences, no retractions, no tachypnea Abdomen: abdomen soft, non-tender, non-distended, no organomegaly Musculoskeletal: Pulses present and equal in all extremities, no peripheral edema Motor: no focal deficits noted Neurological: CN II-XII grossly intact, no focal motor or sensory deficits noted Skin: Intact with no visualized rashes Psych: Normal affect and mood Limitations: no limitations Course Vital Signs 08/13/22 02:22 Temperature 98.5 F Pulse Rate 106 H Respiratory 18 Rate Blood Pressure 143/105 O2 Sat by Pulse 97 Oximetry Medical Decision Making - Medical Decision Making Was pt. sent in by a medical professional or institution (SADE López, THEATRICAL VARIETY AGENT, urgent care, hospital, or [place] health care facility...) When possible be specific @ -No Did you speak to anyone other than the patient for history (EMS, parent, family, police, friend...)? What history was obtained from this source @ -No Did you review nursing and triage notes (agree or disagree)? Why? @ -I reviewed and agree with nursing and triage notes Were old charts reviewed (outside hosp., previous admission, EMS record, old EKG, old radiological studies, urgent care reports/EKG's, [place] health care facility records)? Report findings @ -No old charts were reviewed Differential Diagnosis (chest pain, altered mental status, abdominal pain women, abdominal pain men, vaginal bleeding, musculoskeletal, weakness, fever, dyspnea, syncope, headache, dizziness, GI bleed, back pain, seizure, CVA, palpatations, mental health)? @ -Differential Abdominal Pain Women: Appendicitis, Cholecystitis, diverticulosis, ischemic bowel, pancreatitis, hepatitis, UTI, gastroenteritis, AAA, incarcerated hernia, bowel obstruction, constipation, inflammatory bowel, hepatitis, peptic ulcer disease, splenic infarction, perforated viscus, vulvitis, ovarian torsion, PID, kidney stone, placenta abruption, this is not meant to be an all-inclusive list EKG interpreted by me (3pts min.). @ -None done X-rays interpreted by me (1pt min.). @ -None done CT interpreted by me (1pt min.). @ -None done U/S interpreted by me (1pt. min.). @ -None done What testing was considered but not performed or refused? (CT, X-rays, U/S, labs)? Why? @ -None What meds were considered but not given or refused? Why? @ -None Did you discuss the management of the patient with other professionals (professionals i.e. , PA, THEATRICAL VARIETY AGENT, lab, RT, psych nurse, outreach and education social worker, operations manager station, teacher, activities officer, donor recruitment manager)? Give summary @ -No Was smoking cessation discussed for >3mins.? @ -No Was critical care preformed (if so, how long)? @ -No Were there social determinants of health that impacted care today? How? (H omelessness, low income, unemployed, alcoholism, drug addiction, transportation, low edu. Level, literacy, decrease access to med. care, penitentiary, rehab)? @ -No Was there de-escalation of care discussed even if they declined (Discuss DNR or withdrawal of care, Hospice)? DNR status @ -No What co-morbidities impacted this encounter? (DM, HTN, Smoking, COPD, CAD, Cancer, CVA, ARF, Chemo, Hep., AIDS, mental health diagnosis, sleep apnea, morbid obesity)? @ -History of pancreatitis, chronic pain issues Was patient admitted / discharged? Hospital course, mention meds given and route, prescriptions, significant lab abnormalities, going to OR and other pertinent info. @ -31 Year-old female well-known to emergency department for frequent visitations. Patient is frequently here at least 6-8 times a month for same complaints. Laboratory evaluation unremarkable. Patient's lipase is slightly elevated though not 3 times a day upper limit of normal. Patient's observed in emergency department. Patient is well-appearing upon reevaluation. Patient discharged. Undiagnosed new problem with uncertain prognosis? @ -No Drug Therapy requiring intensive monitoring for toxicity (Heparin, Nitro, Insulin, Cardizem)? @ -No Were any procedures done? @ -No Diagnosis/symptom? Acute, or Chronic, or Acute on Chronic? Uncomplicated (without systemic symptoms) or Complicated (systemic symptoms)? @ -1. Acute on Chronic abdominal pain, 2. Acute on chronic high grade headache Side effects of treatment? @ -No Exacerbation, Progression, or Severe Exacerbation? @ -No Poses a threat to life or bodily function? How? (Chest pain, [place], [place], pneumonia, PE, COPD, DKA, ARF, appy, cholecystitis, CVA, Diverticulitis, Homicidal, Suicida l, threat to staff... and all critical care pts) @ -No - Lab Data Result diagrams: 08/13/22 04:09 08/13/22 04:09 Lab Results 08/13/22 08/13/22 Range/Units 04:09 04:09 WBC 4.7 (3.8-10.6) k/uL RBC 4.05 (3.80-5.40) m/uL Hgb 11.8 (11.4-16.0) gm/dL Hct 35.2 (34.0-46.0) % MCV 86.8 (80.0-100.0) fL MCH 29.1 (25.0-35.0) pg MCHC 33.5 (31.0-37.0) g/dL RDW 15.3 (11.5-15.5) % Plt Count 199 (150-450) k/uL MPV 8.5 Neutrophils % 52 % Lymphocytes % 39 % Monocytes % 4 % Eosinophils % 2 % Basophils % 0 % Neutrophils # 2.5 (1.3-7.7) k/uL Lymphocytes # 1.9 (1.0-4.8) k/uL Monocytes # 0.2 (0-1.0) k/uL Eosinophils # 0.1 (0-0.7) k/uL Basophils # 0.0 (0-0.2) k/uL Sodium 136 L (137-145) mmol/L Potassium 4.2 (3.5-5.1) mmol/L Chloride 102 (98-107) mmol/L Carbon Dioxide 24 (22-30) mmol/L Anion Gap 10 mmol/L BUN 10 (7-17) mg/dL Creatinine 0.59 (0.52-1.04) mg/dL Est GFR (CKD-EPI)AfAm >90 (>60 ml/min/1.73 sqM) Est GFR (CKD-EPI)NonAf >90 (>60 ml/min/1.73 sqM) Glucose 195 H (74-99) mg/dL Calcium 9.8 (8.4-10.2) mg/dL Total Bilirubin 0.4 (0.2-1.3) mg/dL AST 20 (14-36) U/L ALT 18 (4-34) U/L Alkaline Phosphatase 64 (38-126) U/L Total Protein 6.5 (6.3-8.2) g/dL Albumin 3.6 (3.5-5.0) g/dL Lipase 672 H (23-300) U/L Disposition Clinical Impression: Migraine, Abdominal pain Disposition: HOME SELF-CARE Condition: Good Instructions (If sedation given, give patient instructions): Abdominal Pain (ED) Is patient prescribed a controlled substance at d/c from ED?: No Referrals: Isi Carolina MD [Primary Care Provider] - 1-2 days Time of Disposition: 05:09
[2022-08-13] MEDS ORDERED: diphenhydrAMINE 25 MG CAP PO STA (04:00)
[2022-08-13 04:29] LABS: Basophils % (A) 0 %; Eosinophils # (A) 0.1 k/uL (0-0.7); Eosinophils % (A) 2 %; HCT 35.2 % (34.0-46.0); HGB 11.8 gm/dL (11.4-16.0); Lymphocytes # (A) 1.9 k/uL (1.0-4.8); Lymphocytes % (A) 39 %; MCH 29.1 pg (25.0-35.0); MCHC 33.5 g/dL (31.0-37.0); MCV 86.8 fL (80.0-100.0); Mean Platelet Volume 8.5; Monocytes # (A) 0.2 k/uL (0-1.0); Monocytes % (A) 4 %; Neutrophils # (A) 2.5 k/uL (1.3-7.7); Neutrophils % (A) 52 %; Platelet Count 199 k/uL (150-450); RBC 4.05 m/uL (3.80-5.40); RDW 15.3 % (11.5-15.5); WBC 4.7 k/uL (3.8-10.6)
[2022-08-13 05:04] LABS: ALT 18 U/L (4-34); AST 20 U/L (14-36); African American GFR (CKD) >90 (>60 ml/min/1.73 sqM); Albumin 3.6 g/dL (3.5-5.0); Alkaline Phosphatase 64 U/L (38-126); Anion Gap 10 mmol/L; Blood Urea Nitrogen 10 mg/dL (7-17); Calcium 9.8 mg/dL (8.4-10.2); Carbon Dioxide 24 mmol/L (22-30); Chloride 102 mmol/L (98-107); Glucose 195 mg/dL (74-99); Lipase 672 U/L (23-300); Non-African American GFR(CKD) >90 (>60 ml/min/1.73 sqM); Potassium 4.2 mmol/L (3.5-5.1); Sodium 136 mmol/L (137-145); Total Bilirubin 0.4 mg/dL (0.2-1.3); Total Protein 6.5 g/dL (6.3-8.2)
== END 2022-08-13 05:42 | disposition home or self-care (01) ==
LOC: EC 02:03
DX: G43.909 Migraine, unspecified, not intractable, without status migrainosus (principal); R10.9 Unspecified abdominal pain; J45.909 Unspecified asthma, uncomplicated; K21.9 Gastro-esophageal reflux disease without esophagitis; F12.90 Cannabis use, unspecified, uncomplicated; F32.A Depression, unspecified; E11.9 Type 2 diabetes mellitus without complications; Z88.2 Allergy status to sulfonamides; Z91.040 Latex allergy status; Z91.038 Other insect allergy status; Z91.018 Allergy to other foods; Z88.8 Allergy status to other drugs, medicaments and biological substances; Z88.1 Allergy status to other antibiotic agents; Z88.6 Allergy status to analgesic agent; Z90.49 Acquired absence of other specified parts of digestive tract; Z79.899 Other long term (current) drug therapy; Z79.4 Long term (current) use of insulin; Z87.891 Personal history of nicotine dependence
CPT/HCPCS: 36415; 80053; 83690; 85025; 99284; 96372; J1885

== ENCOUNTER 2022-08-18 13:07 | Day surgery (SDC) | payer BC, OTHER ==
[2022-08-14 14:29] VITALS: BMI 40.8
[2022-08-18 13:43] LABS: Glucose,Whole Blood 245 mg/dL (70-110)
[2022-08-18 13:50] VITALS: TEMP 98
[2022-08-18] MEDS ORDERED: MIDAZOLAM 2 MG/2 ML VIAL ONE (15:09)
[2022-08-18] MEDS ORDERED: ROPIVACAINE 5 MG/ML 20 ML AMPULE ONE (15:09)
[2022-08-18] MEDS ORDERED: DEXAMETHASONE SOD PHOSPHATE 10 MG/ML 1 ML VIAL ONE (15:09)
[2022-08-18] MEDS ORDERED: fentaNYL (PF) 50 MCG/ML 2 ML AMP ONE (15:09)
[2022-08-18] MEDS ORDERED: IOPAMIDOL M200 10 ML VIAL ONE (15:09)
[2022-08-18] MEDS ORDERED: KETOROLAC 15 MG/ML 1 ML VIAL IVP STA (15:38)
[2022-08-18] MEDS ORDERED: diphenhydrAMINE 50 MG/ML 1 ML VIAL IVP STA (15:38)
--- NOTE | 2022-08-18 15:38 | P.PCN ---
Date of Procedure: 08/18/22 Preoperative Diagnosis: Chronic pancreatitis Postoperative Diagnosis: Same as above Procedure(s) Performed: Celiac plexus block under flourouscopic guidance Anesthesia: MAC (Moderate IV conscious sedation with Versed and fentanyl) Surgeon: Will England Pathology: none sent Condition: stable Disposition: PACU Description of Procedure: The patient was seen in the preop holding area consent was obtained then she was brought into the procedure room and placed in prone position. Skin was prepped with ChloraPrep and draped in a sterile manner. Lidocaine 1% was used to numb the skin up at the target points that were chosen as follows: The spinous process of L2 vertebra was marked on the AP view of fluoroscopy then the C-arm was tilted to the right oblique position until the tip of the transverse process vanished behind the lateral edge of the vertebral body of L2 after that the C- arm was directed caudad until the marking pointer noted from L2 to L1. Entry site was about 6 cm lateral to midline. I then used 22-gauge 7 inch Quincke spinal needle to go through the skin in a superior to medial direction from the level of L2 targeting the superior end of L1 vertebra. After contacting bone at the L1 vertebra needle tilted laterally until it passed anterio- medial to the L1 vertebral body, the needle tip was advanced to the anterior edge of the L1 vertebral body on the lateral view of fluoroscopy. I then injected 5 MLS of Isovue which showed typical spread of the dye anterior to the L1 vertebral body. The same procedure was repeated on the left side in the same manner. I prepared a solution of 30 MLS of ropivacaine 0.5% +10 mg of Decadron and 15 MLS was given in 5 mL increments on each side after negative aspiration for any blood or CSF. An upright chest x-ray will be ordered in the recovery room to rule out any pneumothorax. Patient tolerated procedure well and was taken to PACU in stable condition. Sedation time:3965-2853
[2022-08-18] MEDS ORDERED: LACTATED RINGERS 1,000 ML IV ONE (15:39)
[2022-08-18 15:54] VITALS: RESP 18
[2022-08-18 16:30] VITALS: BP 98/65; PULSE 96
--- NOTE | 2022-08-18 16:36 | FL ---
Intraoperative/procedural fluoroscopic services were provided for celiac plexus block. Total fluorosc opy time is 65.7 seconds with a total of 5 submitted images to PACS. Total DAP [id number] mGym2. Please see the operative note for further details.
--- NOTE | 2022-08-18 17:12 | XR ---
EXAMINATION TYPE: XR chest 1V portable DATE OF EXAM: 08/18/2022 3:40 PM COMPARISON: Fluoroscopic images of the same date. Chest radiograph 04/29/2022 TECHNIQUE: XR chest 1V portable Portable AP radiograph of the chest. CLINICAL INDICATION:Female, 31 years old with history of R/O Pneumothorax, s/p celiac plexus block; FINDINGS: Lungs/Pleura: There is no evidence of pleural effusion, focal consolidation, or pneumothorax. Pulmonary vascularity: Unremarkable. Heart/mediastinum: Cardiomediastinal silhouette is unremarkable. Musculoskeletal: No acute osseous pathology. IMPRESSION: No acute cardiopulmonary disease/process. MTDD
== END 2022-08-18 17:03 | disposition home or self-care (01) ==
LOC: ORPAIN 13:07
PROVIDERS: ATTEND Anesthesiology
DX: K86.1 Other chronic pancreatitis (principal)
CPT/HCPCS: 64530; 71045; 99152; J2250; J1200; J1100; J3010; J1885; Q9966; J2795

== ENCOUNTER 2022-08-20 20:03 | Emergency (ER) | payer OTHER ==
--- NOTE | 2022-08-20 20:39 | ED ---
Abdominal Pain HPI - General Chief Complaint: Abdominal Pain Stated Complaint: abd pain,back pain Time Seen by Provider: 08/20/22 20:37 Source: patient, RN notes reviewed Mode of arrival: ambulatory - History of Present Illness Initial Comments: Patient is a 31-year-old female presents to the emergency department for abdominal pain. Pain is in her upper middle abdomen with radiation to the back. Patient states pain started yesterday after endoscopic ultrasound at [facility] yesterday. States they took biopsies of pancreatic lesions. Patient is concerned that she has pancreatitis. She is nauseous no vomiting. No fever or chills - Related Data Home Medications Medication Instructions Recorded Confirmed Omeprazole 20 mg PO BID 11/16/21 08/18/22 QUEtiapine FUMARATE [SEROquel XR] 600 mg PO HS 11/16/21 08/18/22 Acetaminophen [Tylenol Extra 500 mg PO Q4H PRN 03/30/22 08/18/22 Strength] Insulin Aspart [NovoLOG Flexpen] 10 units SQ TID-W/MEALS 03/30/22 08/18/22 Insulin Glargine,Hum.rec.anlog 45 units SQ HS 03/30/22 08/18/22 [Lantus Solostar Pen] Naproxen [Naprosyn] 500 mg PO BID PRN 03/30/22 08/18/22 Ondansetron Odt [Zofran ODT] 4 mg SL DAILY PRN 03/30/22 08/18/22 Propranolol HCl [Inderal] 60 mg PO DAILY 03/30/22 08/18/22 metFORMIN HCL [Glucophage] 1,000 mg PO DAILY 03/30/22 08/18/22 tiZANidine [Zanaflex] 4 mg PO BID PRN 03/30/22 08/18/22 Etonogestrel [Nexplanon] 68 mg INTRADERMA DIRECTED 06/22/22 08/18/22 traMADol HCl [Ultram] 50 mg PO Q8HR PRN 07/30/22 08/18/22 Previous Rx's Medication Instructions Recorded Albuterol Nebulized [Ventolin 2.5 mg INHALATION Q4H PRN #75 ml 06/07/22 Nebulized] Ibuprofen [Motrin] 800 mg PO Q8HR PRN #30 tab 06/07/22 Allergies Allergy/AdvReac Type Severity Reaction Status Date / Time bee pollen Allergy Severe Anaphylaxis Verified 08/20/22 20:08 haloperidol lactate Allergy Severe QUIT Verified 08/20/22 20:08 [From Haldol] BREATHING latex Allergy Severe RASH-THROAT Verified 08/20/22 20:08 CLOSES murrieta Allergy Anaphylaxis Verified 08/20/22 20:08 coconut Allergy Anaphylaxis Verified 08/20/22 20:08 pineapple Allergy Anaphylaxis Verified 08/20/22 20:08 spider venom Allergy Swelling Verified 08/20/22 20:08 Sulfa (Sulfonamide Allergy THROAT Verified 08/20/22 20:08 Antibiotics) SWELLS venom-wasp Allergy Swelling Verified 08/20/22 20:08 venom-wasp protein Allergy Swelling Verified 08/20/22 20:08 promethazine HCl AdvReac Severe Nausea & Verified 08/20/22 20:08 [From Phenergan] Vomiting amoxicillin AdvReac Nausea & Verified 08/20/22 20:08 Vomiting ANTS AdvReac Mild Anaphylaxis Uncoded 08/18/22 13:25 Review of Systems ROS Statement: Those systems with pertinent positive or pertinent negative responses have been documented in the HPI. ROS Other: All systems not noted in ROS Statement are negative. Past Medical History Past Medical History: Asthma, Diabetes Mellitus, GERD/Reflux Additional Past Medical History / Comment(s): migraines, degenerative disk disease, endometriosis, lupus, pancreatitis, DM2- insulin, gastroparesis History of Any Multi-Drug Resistant Organisms: None Reported Past Surgical History: Cholecystectomy, Orthopedic Surgery Additional Past Surgical History / Comment(s): laparoscopc surgery for endometriosis, cyst removed from left foot, EGD, Past Anesthesia/Blood Transfusion Reactions: Previous Problems w/ Anesthesia Additional Past Anesthesia/Blood Transfusion Reaction / Comment(s): hard to wake up for 48-72 hours after laparoscopic surgery-was in hosp. for 3 days Past Psychological History: Anxiety, Depression, PTSD Smoking Status: Former smoker, Vaper Past Alcohol Use History: None Reported Past Drug Use History: None Reported - Past Family History Mother Family Medical History: Cancer Additional Family Medical History / Comment(s): Migraines, pancreatic cancer, . Father Family Medical History: Coronary Artery Disease (CAD), Hypertension Additional Family Medical History / Comment(s): ddd, alcoholism & drug use General Exam - General Exam Comments Initial Comments: Visual Physical Exam Vital signs reviewed General: Well-appearing, nontoxic, no acute distress. Head: Normocephalic, atraumatic Eyes: PERRLA, EOMI ENT: Airway patent Chest: Nonlabored breathing Skin: No visual rash, normal skin tone Neuro: Alert and oriented 3 Musculoskeletal: No gross abnormalities General appearance: alert, in no apparent distress Head exam: Present: atraumatic, normocephalic, normal inspection Eye exam: Present: normal appearance, PERRL, EOMI. Absent: scleral icterus, conjunctival injection, periorbital swelling Respiratory exam: Present: normal lung sounds bilaterally. Absent: respiratory distress, wheezes, rales, rhonchi, stridor Cardiovascular Exam: Present: regular rate, normal rhythm, normal heart sounds. Absent: systolic murmur, diastolic murmur, rubs, gallop, clicks GI/Abdominal exam: Present: soft, normal bowel sounds. Absent: distended, tenderness, guarding, rebound, rigid Neurological exam: Present: alert, oriented X3, CN II-XII intact Psychiatric exam: Present: normal affect, normal mood Skin exam: Present: warm, dry, intact, normal color. Absent: rash Course Vital Signs 08/20/22 20:05 Temperature 98.4 F Pulse Rate 103 H Respiratory 18 Rate Blood Pressure 129/88 O2 Sat by Pulse 97 Oximetry Medical Decision Making - Medical Decision Making Was pt. sent in by a medical professional or institution (, PA, BAR EXAMINER, urgent care, hospital, or intermediate...) When possible be specific @ -No Did you speak to anyone other than the patient for history (EMS, parent, family, police, friend...)? What history was obtained from this source @ -No Did you review nursing and triage notes (agree or disagree)? Why? @ -I reviewed and agree with nursing and triage notes Were old charts reviewed (outside hosp., previous admission, EMS record, old EKG, old radiological studies, urgent care reports/EKG's, intermediate records)? Report findings @ -No old charts were reviewed Differential Diagnosis (chest pain, altered mental status, abdominal pain women, abdominal pain men, vaginal bleeding, weakness, fever, dyspnea, syncope, headache, dizziness, GI bleed, back pain, seizure, CVA, palpatations, mental health)? @ -Differential Abdominal Pain Women: Appendicitis, Cholecystitis, diverticulosis, ischemic bowel, pancreatitis, hepatitis, UTI, gastroenteritis, AAA, incarcerated hernia, bowel obstruction, constipation, inflammatory bowel, hepatitis, peptic ulcer disease, splenic infarction, perforated viscus, vulvitis, ovarian torsion, PID, kidney stone, placenta abruption, this is not meant to be an all-inclusive list EKG interpreted by me (3pts min.). @ -As above X-rays interpreted by me (1pt min.). @ -None done CT interpreted by me (1pt min.). @ -None done U/S interpreted by me (1pt. min.). @ -None done What testing was considered but not performed or refused? (CT, X-rays, U/S, labs)? Why? @ -Considered imaging however the abdomen is soft and nontender, vitals within normal limits. What meds were considered but not given or refused? Why? @ -[None] Did you discuss the management of the patient with other professionals (professionals i.e. , PA, BAR EXAMINER, lab, RT, psych nurse, social worker clinical, lithographic press feeder, teacher, evp chief exploration officer, piano case and bench assembler)? Give summary @ -[No] Was smoking cessation discussed for >3mins.? @ -[No] Was critical care preformed (if so, how long)? @ -[No] Were there social determinants of health that impacted care today? How? (Homelessness, low income, unemployed, alcoholism, drug addiction, transportation, low edu. Level, literacy, decrease access to med. care, detention, rehab)? @ -[No] Was there de-escalation of care discussed even if they declined (Discuss DNR or withdrawal of care, Hospice)? DNR status @ -[No] What co-morbidities impacted this encounter? (DM, HTN, Smoking, COPD, CAD, Cancer, CVA, ARF, Chemo, Hep., AIDS, mental health diagnosis, sleep apnea, morbid obesity)? @ -[None] Was patient admitted / discharged? Hospital course, mention meds given and route, prescriptions, significant lab abnormalities, going to OR and other pert inent info. @ -This is a 31-year-old female presenting with epigastric pain and nausea Patient is well-known in the emergency department. She is drinking Mountain Dew upon evaluation. The abdomen is soft and nontender. Laboratory studies obtained and are unremarkable. Lipase is within normal limits. Patient given Toradol. Upon discharge she asks for Benadryl states helps her pain. Patient given dose and will be picked up by her . Patient in stable medical condition for discharge. Undiagnosed new problem with uncertain prognosis? @ -[No] Drug Therapy requiring intensive monitoring for toxicity (Heparin, Nitro, Insulin, Cardizem)? @ -[No] Were any procedures done? @ -[No] Diagnosis/symptom? @ -epigastric pain, nausea Acute, or Chronic, or Acute on Chronic? @ -acute on chronic Uncomplicated (without systemic symptoms) or Complicated (systemic symptoms)? @ -uncomplicated Side effects of treatment? @ -[No] Exacerbation, Progression, or Severe Exacerbation? @ -[No] Poses a threat to life or bodily function? How? (Chest pain, [place], [place], pneumonia, PE, COPD, DKA, ARF, appy, cholecystitis, CVA, Diverticulitis, Homicidal, Suicidal, threat to staff... and all critical care pts) @ -[No] Dr. Turner is my attending - Lab Data Result diagrams: 08/20/22 21:28 08/20/22 21:28 Lab Results 08/20/22 08/20/22 08/20/22 Range/Units 21:28 21:28 21:32 WBC 6.6 (3.8-10.6) k/uL RBC 4.21 (3.80-5.40) m/uL Hgb 12.1 (11.4-16.0) gm/dL Hct 36.8 (34.0-46.0) % MCV 87.4 (80.0-100.0) fL MCH 28.8 (25.0-35.0) pg MCHC 33.0 (31.0-37.0) g/dL RDW 15.4 (11.5-15.5) % Plt Count 251 (150-450) k/uL MPV 8.9 Neutrophils % 41 % Lymphocytes % 52 % Monocytes % 4 % Eosinophils % 1 % Basophils % 0 % Neutrophils # 2.7 (1.3-7.7) k/uL Lymphocytes # 3.4 (1.0-4.8) k/uL Monocytes # 0.3 (0-1.0) k/uL Eosinophils # 0.1 (0-0.7) k/uL Basophils # 0.0 (0-0.2) k/uL Sodium 138 (137-145) mmol/L Potassium 4.5 (3.5-5.1) mmol/L Chloride 103 (98-107) mmol/L Carbon Dioxide 26 (22-30) mmol/L Anion Gap 9 mmol/L BUN 18 H (7-17) mg/dL Creatinine 0.79 (0.52-1.04) mg/dL Est GFR (CKD-EPI)AfAm >90 (>60 ml/min/1.73 sqM) Est GFR (CKD-EPI)NonAf >90 (>60 ml/min/1.73 sqM) Glucose 198 H (74-99) mg/dL Calcium 10.3 H (8.4-10.2) mg/dL Total Bilirubin 0.4 (0.2-1.3) mg/dL AST 22 (14-36) U/L ALT 18 (4-34) U/L Alkaline Phosphatase 47 (38-126) U/L Total Protein 7.0 (6.3-8.2) g/dL Albumin 4.0 (3.5-5.0) g/dL Lipase 163 (23-300) U/L Urine Color Yellow Urine Appearance Cloudy H (Clear) Urine pH 6.0 (5.0-8.0) Ur Specific [place] 1.025 (1.001-1.035) Urine Protein Trace H (Negative) Urine Glucose (UA) 1+ H (Negative) Urine Ketones Negative (Negative) Urine Blood Negative (Negative) Urine Nitrite Negative (Negative) Urine Bilirubin Negative (Negative) Urine Urobilinogen <2.0 (<2.0) mg/dL Ur Leukocyte Esterase Moderate H (Negative) Urine RBC 1 (0-5) /hpf Urine WBC 7 H (0-5) /hpf Ur Squamous Epith Cells 7 H (0-4) /hpf Calcium Oxalate Crystal Few H (None) /hpf Amorphous Sediment Rare H (None) /hpf Urine Bacteria Few H (None) /hpf Hyaline Casts 1 (0-2) /lpf Urine Mucus Rare H (None) /hpf Disposition Clinical Impression: Epigastric pain, Nausea Disposition: HOME SELF-CARE Condition: Good Instructions (If sedation given, give patient instructions): Abdominal Pain (ED) Additional Instructions: Follow-up with [facility] in 1 to 2 days. Return to the emergency department if you experience new, concerning, or worsening symptoms. Is patient prescribed a controlled substance at d/c from ED?: No Referrals: None,Stated [Primary Care Provider] - 1-2 days
[2022-08-20] MEDS ORDERED: SODIUM CHLORIDE 0.9% 1,000 ML IV STA (22:18)
[2022-08-20] MEDS ORDERED: KETOROLAC 15 MG/ML 1 ML VIAL IVP STA (22:19)
[2022-08-20] MEDS ORDERED: ONDANSETRON 4 MG/2 ML VIAL IVP STA (22:19)
[2022-08-20 22:25] LABS: Amorphous Sediment,Urine Rare /hpf; Appearance,Urine Cloudy (Clear); Bacteria,Urine Few /hpf; Bilirubin,Urine Negative (Negative); Blood,Urine Negative (Negative); Calcium Oxalate Crystals,Urine Few /hpf; Color,Urine Yellow; Glucose,Urine (UA) 1+ (Negative); Hyaline Casts,Urine 1 /lpf (0-2); Ketones,Urine Negative (Negative); Leukocyte Esterase,Urine Moderate (Negative); Mucus,Urine Rare /hpf; Nitrite,Urine Negative (Negative); Protein,Urine Trace (Negative); RBC,Urine 1 /hpf (0-5); Specific Gravity,Urine 1.025 (1.001-1.035); Squamous Epithelial Cell,Urine 7 /hpf (0-4); Urobilinogen,Urine <2.0 mg/dL (<2.0); WBC,Urine 7 /hpf (0-5)
[2022-08-20 22:34] LABS: Basophils % (A) 0 %; Eosinophils # (A) 0.1 k/uL (0-0.7); Eosinophils % (A) 1 %; HCT 36.8 % (34.0-46.0); HGB 12.1 gm/dL (11.4-16.0); Lymphocytes # (A) 3.4 k/uL (1.0-4.8); Lymphocytes % (A) 52 %; MCH 28.8 pg (25.0-35.0); MCV 87.4 fL (80.0-100.0); Mean Platelet Volume 8.9; Monocytes # (A) 0.3 k/uL (0-1.0); Monocytes % (A) 4 %; Neutrophils # (A) 2.7 k/uL (1.3-7.7); Neutrophils % (A) 41 %; Platelet Count 251 k/uL (150-450); RBC 4.21 m/uL (3.80-5.40); RDW 15.4 % (11.5-15.5); WBC 6.6 k/uL (3.8-10.6)
[2022-08-20 22:35] LABS: ALT 18 U/L (4-34); AST 22 U/L (14-36); African American GFR (CKD) >90 (>60 ml/min/1.73 sqM); Alkaline Phosphatase 47 U/L (38-126); Anion Gap 9 mmol/L; Blood Urea Nitrogen 18 mg/dL (7-17); Calcium 10.3 mg/dL (8.4-10.2); Carbon Dioxide 26 mmol/L (22-30); Chloride 103 mmol/L (98-107); Glucose 198 mg/dL (74-99); Lipase 163 U/L (23-300); Non-African American GFR(CKD) >90 (>60 ml/min/1.73 sqM); Potassium 4.5 mmol/L (3.5-5.1); Sodium 138 mmol/L (137-145); Total Bilirubin 0.4 mg/dL (0.2-1.3)
[2022-08-20] MEDS ORDERED: diphenhydrAMINE 50 MG/ML 1 ML VIAL IVP STA (22:56)
[2022-08-20 23:05] VITALS: BP 119/80; PULSE 91; RESP 16; TEMP 98.2
== END 2022-08-20 23:11 | disposition home or self-care (01) ==
LOC: EC 20:03
DX: R10.13 Epigastric pain (principal); R11.0 Nausea; J45.909 Unspecified asthma, uncomplicated; E11.9 Type 2 diabetes mellitus without complications; K21.9 Gastro-esophageal reflux disease without esophagitis; F41.9 Anxiety disorder, unspecified; F32.A Depression, unspecified; F17.290 Nicotine dependence, other tobacco product, uncomplicated; Z79.899 Other long term (current) drug therapy; Z79.4 Long term (current) use of insulin; Z88.0 Allergy status to penicillin; Z88.2 Allergy status to sulfonamides; Z91.030 Bee allergy status; Z91.018 Allergy to other foods
CPT/HCPCS: 36415; 80053; 83690; 85025; 81001; 99284; 96374; 96375 ×2; 96361; J1200; J2405; J1885

== ENCOUNTER 2022-08-25 08:32 | Emergency (ER) | payer OTHER ==
[2022-08-25 08:37] VITALS: BP 96/50; PULSE 117; RESP 20; TEMP 97.7
[2022-08-25] MEDS ORDERED: PROCHLORPERAZINE INJ 10 MG/2 ML VIAL IM STA (09:27)
[2022-08-25] MEDS ORDERED: KETOROLAC 15 MG/ML 1 ML VIAL IM STA (09:27)
--- NOTE | 2022-08-25 09:30 | ED ---
Abdominal Pain HPI - General Chief Complaint: Abdominal Pain Stated Complaint: Abd pain Time Seen by Provider: 08/25/22 08:37 Source: patient, RN notes reviewed Mode of arrival: ambulatory Limitations: no limitations - History of Present Illness Initial Comments: 31-year-old female presents emergency Department chief complaint abdominal pain. Patient has chronic abdominal pain does see pain management has had injections. Patient states that this is her typical pain. She did have episode of nausea vomiting. No other associated symptoms. - Related Data Home Medications Medication Instructions Recorded Confirmed Omeprazole 20 mg PO BID 11/16/21 08/18/22 QUEtiapine FUMARATE [SEROquel XR] 600 mg PO HS 11/16/21 08/18/22 Acetaminophen [Tylenol Extra 500 mg PO Q4H PRN 03/30/22 08/18/22 Strength] Insulin Aspart [NovoLOG Flexpen] 10 units SQ TID-W/MEALS 03/30/22 08/18/22 Insulin Glargine,Hum.rec.anlog 45 units SQ HS 03/30/22 08/18/22 [Lantus Solostar Pen] Naproxen [Naprosyn] 500 mg PO BID PRN 03/30/22 08/18/22 Ondansetron Odt [Zofran ODT] 4 mg SL DAILY PRN 03/30/22 08/18/22 Propranolol HCl [Inderal] 60 mg PO DAILY 03/30/22 08/18/22 metFORMIN HCL [Glucophage] 1,000 mg PO DAILY 03/30/22 08/18/22 tiZANidine [Zanaflex] 4 mg PO BID PRN 03/30/22 08/18/22 Etonogestrel [Nexplanon] 68 mg INTRADERMA DIRECTED 06/22/22 08/18/22 traMADol HCl [Ultram] 50 mg PO Q8HR PRN 07/30/22 08/18/22 Previous Rx's Medication Instructions Recorded Albuterol Nebulized [Ventolin 2.5 mg INHALATION Q4H PRN #75 ml 06/07/22 Nebulized] Ibuprofen [Motrin] 800 mg PO Q8HR PRN #30 tab 06/07/22 Allergies Allergy/AdvReac Type Severity Reaction Status Date / Time bee pollen Allergy Severe Anaphylaxis Verified 08/25/22 08:38 haloperidol lactate Allergy Severe QUIT Verified 08/25/22 08:38 [From Haldol] BREATHING latex Allergy Severe RASH-THROAT Verified 08/25/22 08:38 CLOSES [place] Allergy Anaphylaxis Verified 08/25/22 08:38 coconut Allergy Anaphylaxis Verified 08/25/22 08:38 pineapple Allergy Anaphylaxis Verified 08/25/22 08:38 spider venom Allergy Swelling Verified 08/25/22 08:38 Sulfa (Sulfonamide Allergy THROAT Verified 08/25/22 08:38 Antibiotics) SWELLS venom-wasp Allergy Swelling Verified 08/25/22 08:38 venom-wasp protein Allergy Swelling Verified 08/25/22 08:38 promethazine HCl AdvReac Severe Nausea & Verified 08/25/22 08:38 [From Phenergan] Vomiting amoxicillin AdvReac Nausea & Verified 08/25/22 08:38 Vomiting ANTS AdvReac Mild Anaphylaxis Uncoded 08/25/22 08:38 Review of Systems ROS Statement: Those systems with pertinent positive or pertinent negative responses have been documented in the HPI. ROS Other: All systems not noted in ROS Statement are negative. Past Medical History Past Medical History: Asthma, Diabetes Mellitus, GERD/Reflux Additional Past Medical History / Comment(s): migraines, degenerative disk disease, endometriosis, lupus, pancreatitis, DM2- insulin, gastroparesis History of Any Multi-Drug Resistant Organisms: None Reported Past Surgical History: Cholecystectomy, Orthopedic Surgery Additional Past Surgical History / Comment(s): laparoscopc surgery for endometriosis, cyst removed from left foot, EGD, Past Anesthesia/Blood Transfusion Reactions: Previous Problems w/ Anesthesia Additional Past Anesthesia/Blood Transfusion Reaction / Comment(s): hard to wake up for 48-72 hours after laparoscopic surgery-was in hosp. for 3 days Past Psychological History: Anxiety, Depression, PTSD Smoking Status: Former smoker, Vaper Past Alcohol Use History: None Reported Past Drug Use History: None Reported - Past Family History Mother Family Medical History: Cancer Additional Family Medical History / Comment(s): Migraines, pancreatic cancer, . Father Family Medical History: Coronary Artery Disease (CAD), Hypertension Additional Family Medical History / Comment(s): ddd, alcoholism & drug use General Exam Limitations: no limitations General appearance: alert, in no apparent distress Head exam: Present: atraumatic, normocephalic, normal inspection Eye exam: Present: normal appearance, PERRL, EOMI. Absent: scleral icterus, conjunctival injection, periorbital swelling Respiratory exam: Present: normal lung sounds bilaterally. Absent: respiratory distress, wheezes, rales, rhonchi, stridor Cardiovascular Exam: Present: regular rate (Patient's heart rate 88 on exam), normal rhythm, normal heart sounds. Absent: systolic murmur, diastolic murmur, rubs, gallop, clicks GI/Abdominal exam: Present: soft, tenderness, normal bowel sounds. Absent: distended, guarding, rebound, rigid Course Vital Signs 08/25/22 08:34 Temperature 97.7 F Pulse Rate 117 H Respiratory 20 Rate Blood Pressure 96/50 O2 Sat by Pulse 99 Oximetry Medical Decision Making - Medical Decision Making Was pt. sent in by a medical professional or institution (Dr. PA, [employer] CERTIFIED NETWORK PROFESSIONAL, urgent care, hospital, or jail...) When possible be specific @ -No Did you speak to anyone other than the patient for history (EMS, parent, family, police, friend...)? What history was obtained from this source @ -No Did you review nursing and triage notes (agree or disagree)? Why? @ -I reviewed and agree with nursing and triage notes Were old charts reviewed (outside hosp., previous admission, EMS record, old EKG, old radiological studies, urgent care reports/EKG's, jail records)? Report findings @ -Review multiple prior laboratory studies and imaging and pain management Differential Diagnosis (chest pain, altered mental status, abdominal pain women, abdominal pain men, vaginal bleeding, weakness, fever, dyspnea, syncope, headache, dizziness, GI bleed, back pain, seizure, CVA, palpatations, mental health, musculoskeletal)? @ -Differential Abdominal Pain Women: Appendicitis, Cholecystitis, diverticulosis, ischemic bowel, pancreatitis, hepatitis, UTI, gastroenteritis, AAA, incarcerated hernia, bowel obstruction, constipation, inflammatory bowel, hepatitis, peptic ulcer disease, splenic infarction, perforated viscus, vulvitis, ovarian torsion, PID, kidney stone, placenta abruption, this is not meant to be an all-inclusive list EKG interpreted by me (3pts min.). @ -As above X-rays interpreted by me (1pt min.). @ -None done CT interpreted by me (1pt min.). @ -None done U/S interpreted by me (1pt. min.). @ -None done What testing was considered but not performed or refused? (CT, X-rays, U/S, labs)? Why? @ -None What meds were considered but not given or refused? Why? @ -None Did you discuss the management of the patient with other professionals (professionals i.e. , PA, [employer] CERTIFIED NETWORK PROFESSIONAL, lab, RT, psych nurse, 7th grade social studies teacher, packing and wrapping supervisor, teacher, correctional officer, case planner)? Give summary @ -No Was smoking cessation discussed for >3mins.? @ -No Was critical care preformed (if so, how long)? @ -No Were there social determinants of health that impacted care today? How? (Homelessness, low income, unemployed, alcoholism, drug addiction, transportation, low edu. Level, literacy, decrease access to med. care, fdc, rehab)? @ -No Was there de-escalation of care discussed even if they declined (Discuss DNR or withdrawal of care, Hospice)? DNR status @ -No What co-morbidities impacted this encounter? (DM, HTN, Smoking, COPD, CAD, Cancer, CVA, ARF, Chemo, Hep., AIDS, mental health diagnosis, sleep apnea, morbid obesity)? @ -Chronic abdominal pain Was patient admitted / discharged? Hospital course, mention meds given and route, prescriptions, significant lab abnormalities, going to OR and other pertinent info. @ -Discharge patient was given pain control, antiemetics discharged in stable condition. Undiagnosed new problem with uncertain prognosis? @ -No Drug Therapy requiring intensive monitoring for toxicity (Heparin, Nitro, Insulin, Cardizem)? @ -No Were any procedures done? @ -No Diagnosis/symptom? @ -Abdominal pain Acute, or Chronic, or Acute on Chronic? @ -Chronic Uncomplicated (without systemic symptoms) or Complicated (systemic symptoms)? @ -unComplicated Side effects of treatment? @ -No Exacerbation, Progression, or Severe Exacerbation? @ -No Poses a threat to life or bodily function? How? (Chest pain, [place], [place], pneumonia, PE, COPD, DKA, ARF, appy, cholecystitis, CVA, Diverticulitis, Homicidal, Suicidal, threat to staff... and all critical care pts) @ -No Disposition Clinical Impression: Chronic abdominal pain Disposition: HOME SELF-CARE Condition: Stable Instructions (If sedation given, give patient instructions): Abdominal Pain (ED) Additional Instructions: Please return to the Emergency Department if symptoms worsen or any other concerns. Is patient prescribed a controlled substance at d/c from ED?: No Referrals: Isi Carolina MD [Primary Care Provider] - 1-2 days Time of Disposition: 09:30
[2022-08-25] MEDS ORDERED: diphenhydrAMINE 50 MG/ML 1 ML VIAL IM STA (09:39)
== END 2022-08-25 09:56 | disposition home or self-care (01) ==
LOC: EC 08:32 → EEVIPCON 08:32 → EC 09:56
DX: G89.29 Other chronic pain (principal); R10.9 Unspecified abdominal pain; E11.43 Type 2 diabetes mellitus with diabetic autonomic (poly)neuropathy; J45.909 Unspecified asthma, uncomplicated; K21.9 Gastro-esophageal reflux disease without esophagitis; F32.A Depression, unspecified; F41.9 Anxiety disorder, unspecified; K31.84 Gastroparesis; F17.290 Nicotine dependence, other tobacco product, uncomplicated; Z79.4 Long term (current) use of insulin; Z79.84 Long term (current) use of oral hypoglycemic drugs; Z79.899 Other long term (current) drug therapy; Z88.0 Allergy status to penicillin; Z88.2 Allergy status to sulfonamides; Z88.8 Allergy status to other drugs, medicaments and biological substances; Z91.030 Bee allergy status; Z91.038 Other insect allergy status; Z91.040 Latex allergy status; Z91.018 Allergy to other foods; Z91.09 Other allergy status, other than to drugs and biological substances; Z90.49 Acquired absence of other specified parts of digestive tract
CPT/HCPCS: 99284; 96372 ×3; J1200; J0780; J1885

== ENCOUNTER 2022-08-26 22:58 | Emergency (ER) | payer OTHER ==
[2022-08-27] MEDS ORDERED: PROCHLORPERAZINE INJ 10 MG/2 ML VIAL IM STA (00:15)
[2022-08-27] MEDS ORDERED: KETOROLAC 15 MG/ML 1 ML VIAL IM STA (00:15)
[2022-08-27] MEDS ORDERED: diphenhydrAMINE 50 MG/ML 1 ML VIAL IM STA (00:15)
--- NOTE | 2022-08-27 00:22 | ED ---
Abdominal Pain HPI - General Chief Complaint: Abdominal Pain Stated Complaint: abd pain Time Seen by Provider: 08/27/22 00:16 Source: patient Mode of arrival: ambulatory Limitations: no limitations - History of Present Illness Initial Comments: Patient is a 31-year-old female who presents to the emergency department for abdominal pain. Patient has history of chronic abdominal pain states this feels similar. Pain is in the right abdomen. Patient has had nausea with one episode of vomiting. No fever or chills. No diarrhea, constipation, blood in stool, burning to urination, blood in urine. - Related Data Home Medications Medication Instructions Recorded Confirmed Omeprazole 20 mg PO BID 11/16/21 08/18/22 QUEtiapine FUMARATE [SEROquel XR] 600 mg PO HS 11/16/21 08/18/22 Acetaminophen [Tylenol Extra 500 mg PO Q4H PRN 03/30/22 08/18/22 Strength] Insulin Aspart [NovoLOG Flexpen] 10 units SQ TID-W/MEALS 03/30/22 08/18/22 Insulin Glargine,Hum.rec.anlog 45 units SQ HS 03/30/22 08/18/22 [Lantus Solostar Pen] Naproxen [Naprosyn] 500 mg PO BID PRN 03/30/22 08/18/22 Ondansetron Odt [Zofran ODT] 4 mg SL DAILY PRN 03/30/22 08/18/22 Propranolol HCl [Inderal] 60 mg PO DAILY 03/30/22 08/18/22 metFORMIN HCL [Glucophage] 1,000 mg PO DAILY 03/30/22 08/18/22 tiZANidine [Zanaflex] 4 mg PO BID PRN 03/30/22 08/18/22 Etonogestrel [Nexplanon] 68 mg INTRADERMA DIRECTED 06/22/22 08/18/22 traMADol HCl [Ultram] 50 mg PO Q8HR PRN 07/30/22 08/18/22 Previous Rx's Medication Instructions Recorded Albuterol Nebulized [Ventolin 2.5 mg INHALATION Q4H PRN #75 ml 06/07/22 Nebulized] Ibuprofen [Motrin] 800 mg PO Q8HR PRN #30 tab 06/07/22 Allergies Allergy/AdvReac Type Severity Reaction Status Date / Time bee pollen Allergy Severe Anaphylaxis Verified 08/26/22 23:16 haloperidol lactate Allergy Severe QUIT Verified 08/26/22 23:16 [From Haldol] BREATHING latex Allergy Severe RASH-THROAT Verified 08/26/22 23:16 CLOSES [place] Allergy Anaphylaxis Verified 08/26/22 23:16 coconut Allergy Anaphylaxis Verified 08/26/22 23:16 pineapple Allergy Anaphylaxis Verified 08/26/22 23:16 spider venom Allergy Swelling Verified 08/26/22 23:16 Sulfa (Sulfonamide Allergy THROAT Verified 08/26/22 23:16 Antibiotics) SWELLS venom-wasp Allergy Swelling Verified 08/26/22 23:16 venom-wasp protein Allergy Swelling Verified 08/26/22 23:16 promethazine HCl AdvReac Severe Nausea & Verified 08/26/22 23:16 [From Phenergan] Vomiting amoxicillin AdvReac Nausea & Verified 08/26/22 23:16 Vomiting ANTS AdvReac Mild Anaphylaxis Uncoded 08/26/22 23:16 Review of Systems ROS Statement: Those systems with pertinent positive or pertinent negative responses have been documented in the HPI. ROS Other: All systems not noted in ROS Statement are negative. Past Medical History Past Medical History: Asthma, Diabetes Mellitus, GERD/Reflux Additional Past Medical History / Comment(s): migraines, degenerative disk disease, endometriosis, lupus, pancreatitis, DM2- insulin, gastroparesis History of Any Multi-Drug Resistant Organisms: None Reported Past Surgical History: Cholecystectomy, Orthopedic Surgery Additional Past Surgical History / Comment(s): laparoscopc surgery for end ometriosis, cyst removed from left foot, EGD, Past Anesthesia/Blood Transfusion Reactions: Previous Problems w/ Anesthesia Additional Past Anesthesia/Blood Transfusion Reaction / Comment(s): hard to wake up for 48-72 hours after laparoscopic surgery-was in hosp. for 3 days Past Psychological History: Anxiety, Depression, PTSD Smoking Status: Former smoker, Vaper Past Alcohol Use History: None Reported Past Drug Use History: None Reported - Past Family History Mother Family Medical History: Cancer Additional Family Medical History / Comment(s): Migraines, pancreatic cancer, . Father Family Medical History: Coronary Artery Disease (CAD), Hypertension Additional Family Medical History / Comment(s): ddd, alcoholism & drug use General Exam Limitations: no limitations General appearance: alert, in no apparent distress Head exam: Present: atraumatic, normocephalic, normal inspection Respiratory exam: Present: normal lung sounds bilaterally. Absent: respiratory distress, wheezes, rales, rhonchi, stridor Cardiovascular Exam: Present: regular rate, normal rhythm, normal heart sounds. Absent: systolic murmur, diastolic murmur, rubs, gallop, clicks GI/Abdominal exam: Present: soft, normal bowel sounds. Absent: distended, tenderness, guarding, rebound, rigid Neurological exam: Present: alert, oriented X3, CN II-XII intact Psychiatric exam: Present: normal affect, normal mood Skin exam: Present: warm, dry, intact, normal color. Absent: rash Course Vital Signs 08/26/22 08/27/22 23:14 01:45 Temperature 98.1 F 97.9 F Pulse Rate 122 H 100 Respiratory 18 20 Rate Blood Pressure 104/73 99/57 O2 Sat by Pulse 97 96 Oximetry Medical Decision Making - Medical Decision Making Was pt. sent in by a medical professional or institution (, PA, PHYSIOLOGICAL CHEMIST, urgent care, hospital, or long-term...) When possible be specific @ -No Did you speak to anyone other than the patient for history (EMS, parent, family, police, friend...)? What history was obtained from this source @ -No Did you review nursing and triage notes (agree or disagree)? Why? @ -I reviewed and agree with nursing and triage notes Were old charts reviewed (outside hosp., previous admission, EMS record, old EKG, old radiological studies, urgent care reports/EKG's, long-term records)? Report findings @ -No old charts were reviewed Differential Diagnosis (chest pain, altered mental status, abdominal pain women, abdominal pain men, vaginal bleeding, weakness, fever, dyspnea, syncope, headache, dizziness, GI bleed, back pain, seizure, CVA, palpatations, mental health)? @ -Differential Abdominal Pain Women: Appendicitis, Cholecystitis, diverticulosis, ischemic bowel, pancreatitis, hepatitis, UTI, gastroenteritis, AAA, incarcerated hernia, bowel obstruction, constipation, inflammatory bowel, hepatitis, peptic ulcer disease, splenic infarction, perforated viscus, vulvitis, ovarian torsion, PID, kidney stone, placenta abruption, this is not meant to be an all-inclusive list EKG interpreted by me (3pts min.). @ -As above X-rays interpreted by me (1pt min.). @ -None done CT interpreted by me (1pt min.). @ -None done U/S interpreted by me (1pt. min.). @ -None done What testing was considered but not performed or refused? (CT, X-rays, U/S, labs)? Why? @ -Considered imaging of the abdomen however pain is chronic abdomen is nontender What meds were considered but not given or refused? Why? @ -None Did you discuss the management of the patient with other professionals (professionals i.e. , PA, PHYSIOLOGICAL CHEMIST, lab, RT, psych nurse, social problems specialist, immigration lawyer, teacher, service officer, upper caser)? Give summary @ -No Was smoking cessation discussed for >3mins.? @ -No Was critical care preformed (if so, how long)? @ -No Were there social determinants of health that impacted care today? How? (Homelessness, low income, unemployed, alcoholism, drug addiction, transportation, low edu. Level, literacy, decrease access to med. care, alf, rehab)? @ -No Was there de-escalation of care discussed even if they declined (Discuss DNR or withdrawal of care, Hospice)? DNR status @ -No What co-morbidities impacted this encounter? (DM, HTN, Smoking, COPD, CAD, C ancer, CVA, ARF, Chemo, Hep., AIDS, mental health diagnosis, sleep apnea, morbid obesity)? @ -None Was patient admitted / discharged? Hospital course, mention meds given and route, prescriptions, significant lab abnormalities, going to OR and other pertinent info. @ Patient presenting with abdominal pain. Pain is chronic in nature. Vitals within acceptable limits. Patient given pain medication and antiemetics swith improvement. She is stable condition for discharge. Undiagnosed new problem with uncertain prognosis? @ -No Drug Therapy requiring intensive monitoring for toxicity (Heparin, Nitro, Insulin, Cardizem)? @ -No Were any procedures done? @ -No Diagnosis/symptom? @ -Abdominal pain Acute, or Chronic, or Acute on Chronic? @ -Chronic Uncomplicated (without systemic symptoms) or Complicated (systemic symptoms)? @ Uncomplicated Side effects of treatment? @ -No Exacerbation, Progression, or Severe Exacerbation? @ -No Poses a threat to life or bodily function? How? (Chest pain, [place], [place], pneumonia, PE, COPD, DKA, ARF, appy, cholecystitis, CVA, Diverticulitis, Homicidal, Suicidal, threat to staff... and all critical care pts) @ -No Dr. Lopez is my attending Disposition Clinical Impression: Chronic abdominal pain Disposition: HOME SELF-CARE Condition: Good Instructions (If sedation given, give patient instructions): Abdominal Pain (ED) Additional Instructions: Please follow-up with your primary care provider in 1-2 days. Return to the emergency department if you experience new, concerning, or worsening symptoms. Is patient prescribed a controlled substance at d/c from ED?: No Referrals: Isi Carolina MD [Primary Care Provider] - 1-2 days
[2022-08-27 01:47] VITALS: BP 99/57; PULSE 100; RESP 20; TEMP 97.9
== END 2022-08-27 01:05 | disposition home or self-care (01) ==
LOC: EC 22:58
DX: G89.29 Other chronic pain (principal); R10.9 Unspecified abdominal pain; J45.909 Unspecified asthma, uncomplicated; E11.9 Type 2 diabetes mellitus without complications; K21.9 Gastro-esophageal reflux disease without esophagitis; F41.9 Anxiety disorder, unspecified; F32.A Depression, unspecified; F17.290 Nicotine dependence, other tobacco product, uncomplicated; Z79.4 Long term (current) use of insulin; Z79.84 Long term (current) use of oral hypoglycemic drugs; Z79.899 Other long term (current) drug therapy; Z91.030 Bee allergy status; Z91.040 Latex allergy status; Z88.0 Allergy status to penicillin; Z91.018 Allergy to other foods; Z88.8 Allergy status to other drugs, medicaments and biological substances; Z88.2 Allergy status to sulfonamides; Z88.1 Allergy status to other antibiotic agents
CPT/HCPCS: 99283; 96372 ×3; J1200; J0780; J1885

== ENCOUNTER 2022-08-29 20:53 | Emergency (ER) | payer OTHER ==
[2022-08-29 21:04] VITALS: TEMP 98.5
[2022-08-29] MEDS ORDERED: KETOROLAC 15 MG/ML 1 ML VIAL IM STA (23:52)
[2022-08-29] MEDS ORDERED: METOCLOPRAMIDE 5 MG/ML 2 ML VIAL IM STA (23:52)
[2022-08-29] MEDS ORDERED: DICYCLOMINE 10 MG/ML 2 ML AMP IM STA (23:52)
[2022-08-30] MEDS ORDERED: diphenhydrAMINE 50 MG CAP PO STA (00:54)
--- NOTE | 2022-08-30 00:54 | ED ---
Abdominal Pain HPI - General Chief Complaint: Abdominal Pain Stated Complaint: Stomach Pain Time Seen by Provider: 08/29/22 23:34 Source: patient, RN notes reviewed Mode of arrival: ambulatory Limitations: no limitations - History of Present Illness Initial Comments: 31-year-old female who is well-known to this emergency Department For chronic abdominal pain and chronic headaches presents the emergency department the chief complaint of abdominal pain. She reports that she's had worsening abdominal pain that started yesterday. She's been taking Zofran and Benadryl at home with mild symptomatic relief. She denies flank pain, dysuria, hematuria. She denies this being any different than her normal abdominal pain however she just has not been able to manage her symptoms. - Related Data Home Medications Medication Instructions Recorded Confirmed Omeprazole 20 mg PO BID 11/16/21 08/18/22 QUEtiapine FUMARATE [SEROquel XR] 600 mg PO HS 11/16/21 08/18/22 Acetaminophen [Tylenol Extra 500 mg PO Q4H PRN 03/30/22 08/18/22 Strength] Insulin Aspart [NovoLOG Flexpen] 10 units SQ TID-W/MEALS 03/30/22 08/18/22 Insulin Glargine,Hum.rec.anlog 45 units SQ HS 03/30/22 08/18/22 [Lantus Solostar Pen] Naproxen [Naprosyn] 500 mg PO BID PRN 03/30/22 08/18/22 Ondansetron Odt [Zofran ODT] 4 mg SL DAILY PRN 03/30/22 08/18/22 Propranolol HCl [Inderal] 60 mg PO DAILY 03/30/22 08/18/22 metFORMIN HCL [Glucophage] 1,000 mg PO DAILY 03/30/22 08/18/22 tiZANidine [Zanaflex] 4 mg PO BID PRN 03/30/22 08/18/22 Etonogestrel [Nexplanon] 68 mg INTRADERMA DIRECTED 06/22/22 08/18/22 traMADol HCl [Ultram] 50 mg PO Q8HR PRN 07/30/22 08/18/22 Previous Rx's Medication Instructions Recorded Albuterol Nebulized [Ventolin 2.5 mg INHALATION Q4H PRN #75 ml 06/07/22 Nebulized] Ibuprofen [Motrin] 800 mg PO Q8HR PRN #30 tab 06/07/22 Allergies Allergy/AdvReac Type Severity Reaction Status Date / Time bee pollen Allergy Severe Anaphylaxis Verified 09/01/22 07:44 haloperidol lactate Allergy Severe QUIT Verified 09/01/22 07:44 [From Haldol] BREATHING latex Allergy Severe RASH-THROAT Verified 09/01/22 07:44 CLOSES [place] Allergy Anaphylaxis Verified 09/01/22 07:44 coconut Allergy Anaphylaxis Verified 09/01/22 07:44 pineapple Allergy Anaphylaxis Verified 09/01/22 07:44 spider venom Allergy Swelling Verified 09/01/22 07:44 Sulfa (Sulfonamide Allergy THROAT Verified 09/01/22 07:44 Antibiotics) SWELLS venom-wasp Allergy Swelling Verified 09/01/22 07:44 venom-wasp protein Allergy Swelling Verified 09/01/22 07:44 promethazine HCl AdvReac Severe Nausea & Verified 09/01/22 07:44 [From Phenergan] Vomiting amoxicillin AdvReac Nausea & Verified 09/01/22 07:44 Vomiting ANTS AdvReac Mild Anaphylaxis Uncoded 09/01/22 07:44 Review of Systems ROS Statement: Those systems with pertinent positive or pertinent negative responses have been documented in the HPI. ROS Other: All systems not noted in ROS Statement are negative. Past Medical History Past Medical History: Asthma, Diabetes Mellitus, GERD/Reflux Additional Past Medical History / Comment(s): migraines, degenerative disk disease, endometriosis, lupus, pancreatitis, DM2- insulin, gastroparesis History of Any Multi-Drug Resistant Organisms: None Reported Past Surgical History: Cholecystectomy, Orthopedic Surgery Additional Past Surgical History / Comment(s): laparoscopc surgery for endometriosis, cyst removed from left foot, EGD, Past Anesthesia/Blood Transfusion Reactions: Previous Problems w/ Anesthesia Additional Past Anesthesia/Blood Transfusion Reaction / Comment(s): hard to wake up for 48-72 hours after laparoscopic surgery-was in hosp. for 3 days Past Psychological History: Anxiety, Depression, PTSD Smoking Status: Former smoker, Vaper Past Alcohol Use History: None Reported Past Drug Use History: None Reported - Past Family History Mother Family Medical History: Cancer Additional Family Medical History / Comment(s): Migraines, pancreatic cancer, . Father Family Medical History: Coronary Artery Disease (CAD), Hypertension Additional Family Medical History / Comment(s): ddd, alcoholism & drug use General Exam - General Exam Comments Initial Comments: General: Alert, in no acute distress Head: atraumatic normocephalic. Eyes PERRL, EOMI intact, mucous membranes moist Respiratory: Lungs clear to auscultation bilaterally Cardiovascular: Heart rate regular rate and rhythm Abdominal: Soft without guarding or rebound, generalized tenderness Extremities: Normal inspection with full range of motion and normal capillary refill Neuroogic: alert and oriented 3, CN II-XII intact, able to ambulate with steady gait Skin: warm dry and intact with normal color Limitations: no limitations Course Vital Signs 08/29/22 08/30/22 08/30/22 21:03 00:43 03:22 Temperature 98.5 F Pulse Rate 99 86 104 H Respiratory 20 18 16 Rate Blood Pressure 125/88 103/65 114/74 O2 Sat by Pulse 98 96 Oximetry - Reevaluation(s) Reevaluation #1: 08/30/22 00:54 He shouldn't reevaluated. Patient reports mild improvement status post medications. Patient reports that Benadryl will help some of her symptoms. Benadryl ordered. Medical Decision Making - Medical Decision Making Was pt. sent in by a medical professional or institution (, PA, DIRECTOR TALENT ACQUISITION, urgent care, hospital, or longterm...) When possible be specific @ -[No] Did you speak to anyone other than the patient for history (EMS, parent, family, police, friend...)? What history was obtained from this source @ -[No] Did you review nursing and triage notes (agree or disagree)? Why? @ -[I reviewed and agree with nursing and triage notes] Were old charts reviewed (outside hosp., previous admission, EMS record, old EKG, old radiological studies, urgent care reports/EKG's, longterm records)? Report findings @ -[No old charts were reviewed] Differential Diagnosis (chest pain, altered mental status, abdominal pain women, abdominal pain men, vaginal bleeding, weakness, fever, dyspnea, syncope, headache, dizziness, GI bleed, back pain, seizure, CVA, palpatations, mental health, musculoskeletal)? @ -[not applicable] EKG interpreted by me (3pts min.). @ -[As above] X-rays interpreted by me (1pt min.). @ -[None done] CT interpreted by me (1pt min.). @ -[None done] U/S interpreted by me (1pt. min.). @ -[None done] What testing was considered but not performed or refused? (CT, X-rays, U/S, labs)? Why? @ -[None] What meds were considered but not given or refused? Why? @ -[None] Did you discuss the management of the patient with other professionals (professionals i.e. , PA, DIRECTOR TALENT ACQUISITION, lab, RT, psych nurse, oncology social work, aviation survival technician, teacher, transportation security officer, family service caseworker)? Give summary @ -[No] Was smoking cessation discussed for >3mins.? @ -[No] Was critical care preformed (if so, how long)? @ -[No] Were there social determinants of health that impacted care today? How? (Homelessness, low income, unemployed, alcoholism, drug addiction, transportation, low edu. Level, literacy, decrease access to med. care, snf, rehab)? @ -[No] Was there de-escalation of care discussed even if they declined (Discuss DNR or withdrawal of care, Hospice)? DNR status @ -[No] What co-morbidities impacted this encounter? (DM, HTN, Smoking, COPD, CAD, Cancer, CVA, ARF, Chemo, Hep., AIDS, mental health diagnosis, sleep apnea, morbid obesity)? @ -[None] Was patient admitted / discharged? Hospital course, mention meds given and route, prescriptions, significant lab abnormalities, going to OR and other pertinent info. @ -Discharged. This is a 31-year-old female who presents to the emergency department with abdominal pain. Patient had a thorough history and physical exam performed by me. Essentially unremarkable heart rate regular rate and rhythm. Auscultation bilaterally, abdomen soft and generalized tenderness. Patient did not have lab work performed in the ED as she had lab work performed 08/26/2022. She describes her pain as chronic in nature. Patient was given Bentyl, Reglan, Zofran, Pepcid, Benadryl with mild symptomatic relief in the ER. Return precautions were discussed at length. Patient discharged in stable condition. Case discussed with ILANA Jones who placed the plan of care Undiagnosed new problem with uncertain prognosis? @ -[No] Drug Therapy requiring intensive monitoring for toxicity (Heparin, Nitro, Insulin, Cardizem)? @ -[No] Were any procedures done? @ -[No] Diagnosis/symptom? @ -abdominal pain Acute, or Chronic, or Acute on Chronic? @ -Chronic Uncomplicated (without systemic symptoms) or Complicated (systemic symptoms)? @ -uncomplicated Side effects of treatment? @ -[No] Exacerbation, Progression, or Severe Exacerbation? @ -[No] Poses a threat to life or bodily function? How? (Chest pain, [place], [place], pneumonia, PE, COPD, DKA, ARF, appy, cholecystitis, CVA, Diverticulitis, Homicidal, Suicidal, threat to staff... and all critical care pts) @ -low likelihood Disposition Clinical Impression: Abdominal pain Disposition: HOME SELF-CARE Condition: Stable Additional Instructions: These return to the nearest emergency department if symptoms worsen or persist Is patient prescribed a controlled substance at d/c from ED?: No Referrals: Isi Carolina MD [Primary Care Provider] - 1-2 days Time of Disposition: 03:09
[2022-08-30] MEDS ORDERED: FAMOTIDINE 20 MG TAB PO STA (01:58)
[2022-08-30] MEDS ORDERED: ONDANSETRON 4 MG/2 ML VIAL IM STA (02:01)
[2022-08-30 03:39] VITALS: BP 114/74; PULSE 104; RESP 16
== END 2022-08-30 03:22 | disposition home or self-care (01) ==
LOC: EC 20:53
DX: R10.84 Generalized abdominal pain (principal); E11.43 Type 2 diabetes mellitus with diabetic autonomic (poly)neuropathy; K31.84 Gastroparesis; J45.909 Unspecified asthma, uncomplicated; F32.A Depression, unspecified; K21.9 Gastro-esophageal reflux disease without esophagitis; F41.9 Anxiety disorder, unspecified; Z79.4 Long term (current) use of insulin; Z79.84 Long term (current) use of oral hypoglycemic drugs; Z79.899 Other long term (current) drug therapy; Z88.0 Allergy status to penicillin; Z88.2 Allergy status to sulfonamides; Z88.8 Allergy status to other drugs, medicaments and biological substances; Z91.030 Bee allergy status; Z91.040 Latex allergy status; Z91.018 Allergy to other foods; Z91.038 Other insect allergy status; Z91.09 Other allergy status, other than to drugs and biological substances; Z90.49 Acquired absence of other specified parts of digestive tract
CPT/HCPCS: 99284; 96372 ×4; J0500; J2765; J2405; J1885

== ENCOUNTER 2022-09-01 07:40 | Emergency (ER) | payer OTHER ==
[2022-09-01 07:44] VITALS: TEMP 98.3
[2022-09-01] MEDS ORDERED: KETOROLAC 15 MG/ML 1 ML VIAL IM STA (08:01)
--- NOTE | 2022-09-01 08:08 | ED ---
General Adult HPI - General Chief complaint: Headache Stated complaint: headache Time Seen by Provider: 09/01/22 07:48 Source: patient Mode of arrival: ambulatory Limitations: no limitations - History of Present Illness Initial comments: Dictation was produced using Ampere dictation software. please excuse any grammatical, word or spelling errors. Chief Complaint: 31-year-old female with chronic abdominal pain and chronic headaches presents to the emergency department for abdominal pain and headache History of Present Illness: She is 31-year-old female well-known to emergency department. This patient's 8th visit in the last month. Patient's history of chronic abdominal pain for which she uses [facility]. She also has history of headaches. Patient has had pancreatitis in the past. She has chronic pain. Patient denies any fever or chills or night sweats. The ROS documented in this emergency department record has been reviewed and confirmed by me. Those systems with pertinent positive or negative responses have been documented in the HPI. All other systems are other negative and/or noncontributory. - Related Data Home Medications Medication Instructions Recorded Confirmed Omeprazole 20 mg PO BID 11/16/21 08/18/22 QUEtiapine FUMARATE [SEROquel XR] 600 mg PO HS 11/16/21 08/18/22 Acetaminophen [Tylenol Extra 500 mg PO Q4H PRN 03/30/22 08/18/22 Strength] Insulin Aspart [NovoLOG Flexpen] 10 units SQ TID-W/MEALS 03/30/22 08/18/22 Insulin Glargine,Hum.rec.anlog 45 units SQ HS 03/30/22 08/18/22 [Lantus Solostar Pen] Naproxen [Naprosyn] 500 mg PO BID PRN 03/30/22 08/18/22 Ondansetron Odt [Zofran ODT] 4 mg SL DAILY PRN 03/30/22 08/18/22 Propranolol HCl [Inderal] 60 mg PO DAILY 03/30/22 08/18/22 metFORMIN HCL [Glucophage] 1,000 mg PO DAILY 03/30/22 08/18/22 tiZANidine [Zanaflex] 4 mg PO BID PRN 03/30/22 08/18/22 Etonogestrel [Nexplanon] 68 mg INTRADERMA DIRECTED 06/22/22 08/18/22 traMADol HCl [Ultram] 50 mg PO Q8HR PRN 07/30/22 08/18/22 Previous Rx's Medication Instructions Recorded Albuterol Nebulized [Ventolin 2.5 mg INHALATION Q4H PRN #75 ml 06/07/22 Nebulized] Ibuprofen [Motrin] 800 mg PO Q8HR PRN #30 tab 06/07/22 Allergies Allergy/AdvReac Type Severity Reaction Status Date / Time bee pollen Allergy Severe Anaphylaxis Verified 09/01/22 07:44 haloperidol lactate Allergy Severe QUIT Verified 09/01/22 07:44 [From Haldol] BREATHING latex Allergy Severe RASH-THROAT Verified 09/01/22 07:44 CLOSES murrieta Allergy Anaphylaxis Verified 09/01/22 07:44 coconut Allergy Anaphylaxis Verified 09/01/22 07:44 pineapple Allergy Anaphylaxis Verified 09/01/22 07:44 spider venom Allergy Swelling Verified 09/01/22 07:44 Sulfa (Sulfonamide Allergy THROAT Verified 09/01/22 07:44 Antibiotics) SWELLS venom-wasp Allergy Swelling Verified 09/01/22 07:44 venom-wasp protein Allergy Swelling Verified 09/01/22 07:44 promethazine HCl AdvReac Severe Nausea & Verified 09/01/22 07:44 [From Phenergan] Vomiting amoxicillin AdvReac Nausea & Verified 09/01/22 07:44 Vomiting ANTS AdvReac Mild Anaphylaxis Uncoded 09/01/22 07:44 Review of Systems ROS Statement: Those systems with pertinent positive or pertinent negative responses have been documented in the HPI. ROS Other: All systems not noted in ROS Statement are negative. Past Medical History Past Medical History: Asthma, Diabetes Mellitus, GERD/Reflux Additional Past Medical History / Comment(s): migraines, degenerative disk disease, endometriosis, lupus, pancreatitis, DM2- insulin, gastroparesis History of Any Multi-Drug Resistant Organisms: None Reported Past Surgical History: Cholecystectomy, Orthopedic Surgery Additional Past Surgical History / Comment(s): laparoscopc surgery for endometriosis, cyst removed from left foot, EGD, Past Anesthesia/Blood Transfusion Reactions: Previous Problems w/ Anesthesia Additional Past Anesthesia/Blood Transfusion Reaction / Comment(s): hard to wake up for 48-72 hours after laparoscopic surgery-was in hosp. for 3 days Past Psychological History: Anxiety, Depression, PTSD Smoking Status: Former smoker, Vaper Past Alcohol Use History: None Reported Past Drug Use History: None Reported - Past Family History Mother Family Medical History: Cancer Additional Family Medical History / Comment(s): Migraines, pancreatic cancer, . Father Family Medical History: Coronary Artery Disease (CAD), Hypertension Additional Family Medical History / Comment(s): ddd, alcoholism & drug use General Exam - General Exam Comments Initial Comments: PHYSICAL EXAM: General Impression: Alert and oriented x3, not in acute distress HEENT: Normocephalic atraumatic, extra-ocular movements intact, pupils equal and reactive to light bilaterally, mucous membranes moist. Cardiovascular: Heart regular rate and rhythm Chest: Able to complete full sentences, no retractions, no tachypnea Musculoskeletal: no peripheral edema Motor: no focal deficits noted Neurological: CN II-XII grossly intact, no focal motor or sensory deficits noted Skin: Intact with no visualized rashes Psych: Normal affect and mood Limitations: no limitations Course Vital Signs 09/01/22 07:42 Temperature 98.3 F Pulse Rate 107 H Respiratory 20 Rate Blood Pressure 103/79 O2 Sat by Pulse 99 Oximetry Medical Decision Making - Medical Decision Making Was pt. sent in by a medical professional or institution (, PA, EXAMINER RATING CLERK, urgent care, hospital, or [facility]...) When possible be specific @ -No Did you speak to anyone other than the patient for history (EMS, parent, family, police, friend...)? What history was obtained from this source @ -No Did you review nursing and triage notes (agree or disagree)? Why? @ -I reviewed and agree with nursing and triage notes Were old charts reviewed (outside hosp., previous admission, EMS record, old EKG, old radiological studies, urgent care reports/EKG's, [facility] records)? Report findings @ -No old charts were reviewed Differential Diagnosis (chest pain, altered mental status, abdominal pain women, abdominal pain men, vaginal bleeding, musculoskeletal, weakness, fever, dyspnea, syncope, headache, dizziness, GI bleed, back pain, seizure, CVA, palpatations, mental health)? @ -Differential Abdominal Pain Women: Appendicitis, Cholecystitis, diverticulosis, ischemic bowel, pancreatitis, hepatitis, UTI, gastroenteritis, AAA, incarcerated hernia, bowel obstruction, constipation, inflammatory bowel, hepatitis, peptic ulcer disease, splenic infarction, perforated viscus, vulvitis, ovarian torsion, PID, kidney stone, placenta abruption, this is not meant to be an all-inclusive list Differential Headache: Migraine, tension, cluster, carbon monoxide, central venous thrombosis, pension karma temporal arteritis, acute closure glaucoma, intercranial hemorrhage, mastoiditis, sinusitis, head injury, this is not meant to be an all-inclusive list. EKG interpreted by me (3pts min.). @ -None done X-rays interpreted by me (1pt min.). @ -None done CT interpreted by me (1pt min.). @ -None done U/S interpreted by me (1pt. min.). @ -None done What testing was considered but not performed or refused? (CT, X-rays, U/S, labs)? Why? @ -None What meds were considered but not given or refused? Why? @ -None Did you discuss the management of the patient with other professionals (professionals i.e. DrSuzie, PA, EXAMINER RATING CLERK, lab, RT, psych nurse, social sciences chair, computer science professor, teacher, assault amphibious vehicle officer, ed case manager)? Give summary @ -No Was smoking cessation discussed for >3mins.? @ -No Was critical care preformed (if so, how long)? @ -No Were there social determinants of health that impacted care today? How? (Homelessness, low income, unemployed, alcoholism, drug addiction, transportation, low edu. Level, literacy, decrease access to med. care, correction, rehab)? @ -No Was there de-escalation of care discussed even if they declined (Discuss DNR or withdrawal of care, Hospice)? DNR status @ -No What co-morbidities impacted this encounter? (DM, HTN, Smoking, COPD, CAD, Cancer, CVA, ARF, Chemo, Hep., AIDS, mental health diagnosis, sleep apnea, morbid obesity)? @ -Chronic pain Was patient admitted / discharged? Hospital course, mention meds given and route, prescriptions, significant lab abnormalities, going to OR and other pertinent info. @ -31-year-old male presents to the emergency department yet again for complaint of abdominal pain and headache. Patient has history of chronic pain issues. This is her eighth visit this month. Patient frequents the ER. Patient has been evaluated by me on multiple occasions. She appears to be at baseline. Patient given analgesics and will be discharged. Undiagnosed new problem with uncertain prognosis? @ -No Drug Therapy requiring intensive monitoring for toxicity (Heparin, Nitro, Insulin, Cardizem)? @ -No Were any procedures done? @ -No Diagnosis/symptom? Acute, or Chronic, or Acute on Chronic? Uncomplicated (without systemic symptoms) or Complicated (systemic symptoms)? @ -1. Chronic abdominal pain and chronic headaches Side effects of treatment? @ -No Exacerbation, Progression, or Severe Exacerbation? @ -No Poses a threat to life or bodily function? How? (Chest pain, [place], [place], pneumonia, PE, COPD, DKA, ARF, appy, cholecystitis, CVA, Diverticulitis, Homicidal, Suicidal, threat to staff... and all critical care pts) @ -No - Lab Data Lab Results 09/01/22 Range/Units 08:05 Lipase 166 (23-300) U/L Disposition Clinical Impression: Chronic pain Disposition: HOME SELF-CARE Condition: Good Instructions (If sedation given, give patient instructions): Chronic Pain (ED) Is patient prescribed a controlled substance at d/c from ED?: No Referrals: Isi Carolina MD [Primary Care Provider] - 1-2 days Time of Disposition: 08:48
[2022-09-01 09:05] VITALS: BP 108/71; PULSE 85; RESP 18
== END 2022-09-01 09:05 | disposition home or self-care (01) ==
LOC: EC 07:40
DX: G89.29 Other chronic pain (principal); R51.9 Headache, unspecified; R10.9 Unspecified abdominal pain; E11.43 Type 2 diabetes mellitus with diabetic autonomic (poly)neuropathy; K31.84 Gastroparesis; J45.909 Unspecified asthma, uncomplicated; K21.9 Gastro-esophageal reflux disease without esophagitis; F32.A Depression, unspecified; F41.9 Anxiety disorder, unspecified; F17.290 Nicotine dependence, other tobacco product, uncomplicated; Z79.4 Long term (current) use of insulin; Z79.84 Long term (current) use of oral hypoglycemic drugs; Z79.899 Other long term (current) drug therapy; Z88.0 Allergy status to penicillin; Z88.8 Allergy status to other drugs, medicaments and biological substances; Z91.040 Latex allergy status; Z91.030 Bee allergy status; Z91.038 Other insect allergy status; Z91.018 Allergy to other foods; Z88.2 Allergy status to sulfonamides; Z91.09 Other allergy status, other than to drugs and biological substances; Z90.49 Acquired absence of other specified parts of digestive tract
CPT/HCPCS: 36415; 83690; 99284; 96372; J1885

== ENCOUNTER → 2022-09-03 | Outpatient (CLI) | payer BC, OTHER ==
[2022-09-03 13:09] VITALS: BP 124/92; PULSE 95; RESP 18; TEMP 98.2
--- NOTE | 2022-09-03 14:53 | P.PAINPG ---
PQRS Measure Charge Sheet Comment: A 31 yr old female with a history of severe and chronic LBP secondary to lumbar DDD and spondylosis with facet arthropathy without myelopathy presents today for evaluation s/p Celiac Plexus NB. Pt states she experienced 0 % pain relief x 2 wks s/p procedure. Pain level is provoked at 8 /10 in intensity, con stant, localized in the lumbar spine, achy, stabbing in character w/o shooting pain. Pain has no palliative factors. Pain is provoked with eating and movements. Interventional pain procedures completed include Celiac Plexus NB Patient is currently on Tramadol, Ibu Patient denies any side effects of the medication(s), denies excessive drowsiness or sleepiness, denies suicidal ideation and reports that the current pain medication is helping to control the pain and improve activities of daily living. Patient denies any motor or sensory deficits. Patient denies any fever or night sweats, denies any change in the bowel movements or urination. Physical Examination: -Constitutional: Cooperative. Not in acute distress . - Neurologic: Cranial nerve II to XII intact. No focal neurological deficits. - Psychatric: Alert & oriented x 3. Matching mood & appropriate affect. Judgment and insight intact. - Musculoskeletal: Cervical spine: Muscle bulk/ tone/ strength in the bilateral upper extremities normal Vertebral body tenderness to palpation over Spurling test positive Distraction test positive Facet loading test positive TTP Thoracic spine +RUQ/ LUQ TTP Muscle bulk / tone/ strength in the bilateral paraspinal muscles normal Vertebral body tender to palpation over Facet loading test positive TTP Lumbar spine: Motor bulk/ tone/ strength lower extremities , thigh and legs : 5/5 Deep tendon reflexes : Normal Knee Jerk. Normal Ankle Jerk . Vertebral body tenderness to palpation over You Test positive Lumbar Facet Loading Test positive Straight Leg Raise: positive at 30 degrees right side/ left side Gaenslen's Test positive Sacral spine : Severe tenderness over the Sacroiliac joint: right side / left side Range of motion: Flexion of the lumbar spine <60 degrees Range of motion: Extension of the lumbar spine <20 degrees Gaenslen's Test positive right side / left side Zelda test: positive right side / left side Thigh Thrust Test positive right side / left side Sacral Thrust Test positive right side / left side Assessment and plan: Chronic LBP secondary to lumbar DDD, spondylosis with facet arthropathy without myelopathy Recommendation of BL Splanchnic NB. May need a series of injections for optimal pain relief. Risks, benefits of procedure discussed and pt verbalized understanding. Admits to anticoagulant use or medical history of diabetes. Protocol for discontinuation/ continuation of medications pati procedure discussed. Minimal anesthesia provided, if clinically indicated, consisting of Versed and Fentanyl. All questions answered. I have spent less than 30 minutes on patient care today. Dr Reese was available by phone for the evaluation of this patient. The time was used to review the medical records including relevant urine studies and Prescription history (MAPs), review of the available imaging, evaluation and examination of the patient, coordination of care with the medical staff and if applicable referring physicians, as well as creation of the medical record PQRS Narrative: Smoking Status Never smoker Hx Alcohol Use (MH) No Home Medications: Ambulatory Orders Omeprazole 20 mg PO BID 11/16/21 QUEtiapine FUMARATE [SEROquel XR] 600 mg PO HS 11/16/21 Acetaminophen [Tylenol Extra Strength] 500 mg PO Q4H PRN 03/30/22 Insulin Aspart [NovoLOG Flexpen] 10 units SQ TID-W/MEALS 03/30/22 Insulin Glargine,Hum.rec.anlog [Lantus Solostar Pen] 45 units SQ HS 03/30/22 Naproxen [Naprosyn] 500 mg PO BID PRN 03/30/22 Ondansetron Odt [Zofran ODT] 4 mg SL DAILY PRN 03/30/22 Propranolol HCl [Inderal] 60 mg PO DAILY 03/30/22 metFORMIN HCL [Glucophage] 1,000 mg PO DAILY 03/30/22 tiZANidine [Zanaflex] 4 mg PO BID PRN 03/30/22 Albuterol Nebulized [Ventolin Nebulized] 2.5 mg INHALATION Q4H PRN #75 ml 06/07/22 Ibuprofen [Motrin] 800 mg PO Q8HR PRN #30 tab 06/07/22 Etonogestrel [Nexplanon] 68 mg INTRADERMA DIRECTED 06/22/22 traMADol HCl [Ultram] 50 mg PO Q8HR PRN 07/30/22 Controlled Substance Measures - Controlled Substance Measures Is patient prescribed a controlled substance at discharge?: No
== END ==
LOC: PNWHC3 10:16
PROVIDERS: ATTEND Specialist
DX: M51.36 Other intervertebral disc degeneration, lumbar region (principal); M47.816 Spondylosis without myelopathy or radiculopathy, lumbar region; G89.29 Other chronic pain; Z91.048 Other nonmedicinal substance allergy status; Z91.040 Latex allergy status; Z91.018 Allergy to other foods; Z88.0 Allergy status to penicillin; Z88.2 Allergy status to sulfonamides
CPT/HCPCS: 99211

== ENCOUNTER 2022-09-04 18:21 | Emergency (ER) | payer OTHER ==
[2022-09-04 18:25] VITALS: TEMP 98.3
[2022-09-04] MEDS ORDERED: diphenhydrAMINE 50 MG CAP PO STA (19:49)
[2022-09-04] MEDS ORDERED: HYDROmorphone 1 MG/ML 1 ML SYRINGE IM STA (19:49)
[2022-09-04] MEDS ORDERED: PROCHLORPERAZINE 10 MG TAB PO STA (19:49)
--- NOTE | 2022-09-04 19:54 | ED ---
Recheck HPI - General Chief Complaint: Abdominal Pain Stated Complaint: Abd pain Time Seen by Provider: 09/04/22 19:09 Source: patient, RN notes reviewed, old records reviewed Mode of arrival: ambulatory Limitations: no limitations - History of Present Illness Initial Comments: This is a 31-year-old female to the emergency room today. Patient presents today for evaluation regards to abdominal pain chronic about pain history of chronic abdominal pain. Patient states she has nausea vomiting currently and is unable to control her pain. Patient is no travel show sick contacts or fevers no new symptoms as her same symptoms as she gets with her chronic abdominal pain -: unknown Returns Today for: persistent/worsening pain related to initial visit Symptoms Since Prior Visit: worsening pain Context: ran out of medication Associated Symptoms: nausea, abdominal pain Treatments Prior to Arrival: Given Pain Meds on, other (0) - Related Data Home Medications Medication Instructions Recorded Confirmed Omeprazole 20 mg PO BID 11/16/21 08/18/22 QUEtiapine FUMARATE [SEROquel XR] 600 mg PO HS 11/16/21 08/18/22 Acetaminophen [Tylenol Extra 500 mg PO Q4H PRN 03/30/22 08/18/22 Strength] Insulin Aspart [NovoLOG Flexpen] 10 units SQ TID-W/MEALS 03/30/22 08/18/22 Insulin Glargine,Hum.rec.anlog 45 units SQ HS 03/30/22 08/18/22 [Lantus Solostar Pen] Naproxen [Naprosyn] 500 mg PO BID PRN 03/30/22 08/18/22 Ondansetron Odt [Zofran ODT] 4 mg SL DAILY PRN 03/30/22 08/18/22 Propranolol HCl [Inderal] 60 mg PO DAILY 03/30/22 08/18/22 metFORMIN HCL [Glucophage] 1,000 mg PO DAILY 03/30/22 08/18/22 tiZANidine [Zanaflex] 4 mg PO BID PRN 03/30/22 08/18/22 Etonogestrel [Nexplanon] 68 mg INTRADERMA DIRECTED 06/22/22 08/18/22 traMADol HCl [Ultram] 50 mg PO Q8HR PRN 07/30/22 08/18/22 Previous Rx's Medication Instructions Recorded Albuterol Nebulized [Ventolin 2.5 mg INHALATION Q4H PRN #75 ml 06/07/22 Nebulized] Ibuprofen [Motrin] 800 mg PO Q8HR PRN #30 tab 06/07/22 Allergies Allergy/AdvReac Type Severity Reaction Status Date / Time bee pollen Allergy Severe Anaphylaxis Verified 09/08/22 09:39 haloperidol lactate Allergy Severe QUIT Verified 09/08/22 09:39 [From Haldol] BREATHING latex Allergy Severe RASH-THROAT Verified 09/08/22 09:39 CLOSES murrieta Allergy Anaphylaxis Verified 09/08/22 09:39 coconut Allergy Anaphylaxis Verified 09/08/22 09:39 pineapple Allergy Anaphylaxis Verified 09/08/22 09:39 spider venom Allergy Swelling Verified 09/08/22 09:39 Sulfa (Sulfonamide Allergy THROAT Verified 09/08/22 09:39 Antibiotics) SWELLS venom-wasp Allergy Swelling Verified 09/08/22 09:39 venom-wasp protein Allergy Swelling Verified 09/08/22 09:39 promethazine HCl AdvReac Severe Nausea & Verified 09/08/22 09:39 [From Phenergan] Vomiting amoxicillin AdvReac Nausea & Verified 09/08/22 09:39 Vomiting ANTS AdvReac Mild Anaphylaxis Uncoded 09/08/22 09:39 Review of Systems ROS Statement: Those systems with pertinent positive or pertinent negative responses have been documented in the HPI. ROS Other: All systems not noted in ROS Statement are negative. Past Medical History Past Medical History: Asthma, Diabetes Mellitus, GERD/Reflux Additional Past Medical History / Comment(s): migraines, degenerative disk disease, endometriosis, lupus, pancreatitis, DM2- insulin, gastroparesis History of Any Multi-Drug Resistant Organisms: None Reported Past Surgical History: Cholecystectomy, Orthopedic Surgery Additional Past Surgical History / Comment(s): laparoscopc surgery for endometriosis, cyst removed from left foot, EGD, Past Anesthesia/Blood Transfusion Reactions: Previous Problems w/ Anesthesia Additional Past Anesthesia/Blood Transfusion Reaction / Comment(s): hard to wake up for 48-72 hours after laparoscopic surgery-was in hosp. for 3 days Past Psychological History: Anxiety, Depression, PTSD Smoking Status: Former smoker, Vaper Past Alcohol Use History: None Reported Past Drug Use History: None Reported - Past Family History Mother Family Medical History: Cancer Additional Family Medical History / Comment(s): Migraines, pancreatic cancer, . Father Family Medical History: Coronary Artery Disease (CAD), Hypertension Additional Family Medical History / Comment(s): ddd, alcoholism & drug use General Exam Limitations: no limitations General appearance: alert, in no apparent distress Head exam: Present: atraumatic, normocephalic, normal inspection Eye exam: Present: normal appearance, PERRL, EOMI. Absent: scleral icterus, conjunctival injection, periorbital swelling ENT exam: Present: normal exam, mucous membranes moist Neck exam: Present: normal inspection. Absent: tenderness, meningismus, lymphadenopathy Respiratory exam: Present: normal lung sounds bilaterally. Absent: respiratory distress, wheezes, rales, rhonchi, stridor Cardiovascular Exam: Present: regular rate, normal rhythm, normal heart sounds. Absent: systolic murmur, diastolic murmur, rubs, gallop, clicks GI/Abdominal exam: Present: soft, normal bowel sounds. Absent: distended, tenderness, guarding, rebound, rigid Extremities exam: Present: normal inspection, full ROM, normal capillary refill. Absent: tenderness, pedal edema, joint swelling, calf tenderness Back exam: Present: normal inspection Neurological exam: Present: alert, oriented X3, CN II-XII intact Psychiatric exam: Present: normal affect, normal mood Skin exam: Present: warm, dry, intact, normal color. Absent: rash Course Vital Signs 09/04/22 09/04/22 18:22 20:24 Temperature 98.3 F Pulse Rate 114 H 107 H Respiratory 20 18 Rate Blood Pressure 135/86 129/86 O2 Sat by Pulse 100 94 L Oximetry - Reevaluation(s) Reevaluation #1: 09/04/22 20:06 Medical records reviewed Reevaluation #2: 09/04/22 20:06 Symptoms improved Reevaluation #3: 09/04/22 20:06 Patient informed of results questions answered Reevaluation #4: 09/04/22 20:06 Was pt. sent in by a medical professional or institution? @ -no Did you speak to anyone other than the patient for history? @ -no Did you review nursing and triage notes? @ -agree Were old charts reviewed? @ -Yes patient will this facility multiple visits with different imaging and lab tests Differential Diagnosis? @ -prior EKG interpreted by me (3pts min.)? @ -no Xrays interpreted by me (1pt min.)? @ -no CT interpreted by me (1pt min.)? @ -no U/S interpreted by me (1pt. min.)? @ -no What testing was considered but not performed? (CT, X-rays, U/S, labs)? Why? @ -no What meds were considered but not given? Why? @ -no Did you discuss the management of the patient with other professionals? @ -no Did you reconcile home meds? @ -no Was smoking cessation discussed for >3mins.? @ -no Was critical care preformed (if so, how long)? @ -no Were there social determinants of health that impacted care today? How? (Homelessness, low income, unemployed, alcoholism, drug addiction, transportation, low edu. Level, literacy, decrease access to med. care, long term, rehab)? @ -no Was there de-escalation of care discussed even if they declined? (Discuss DNR or withdrawal of care, Hospice)? @ -no What co-morbidities impacted this encounter? (DM, HTN, Smoking, COPD, CAD, Cancer, CVA, Hep., AIDS, mental health diagnosis, sleep apnea, morbid obesity)? @ -none Was patient admitted / discharged? @ -31 female [place] with chronic abdominal pain acute pain worsening today with nausea vomiting. Pain is controlled patient can be discharged home Discharge Undiagnosed new problem with uncertain prognosis? @ -no Drug Therapy requiring intensive monitoring for toxicity (Heparin, Nitro, Insulin, Cardizem)? @ -no Were any procedures done? @ -no Diagnosis/symptom? @ -Abdominal pain Acute, or Chronic, or Acute on Chronic? @ -Acute on chronic Uncomplicated (without systemic symptoms) or Complicated (systemic symptoms)? @ -uncomplicated Side effects of treatment? @ -no Exacerbation, Progression, or Severe Exacerbation] @ -no Poses a threat to life or bodily function? @ -no Reevaluation #5: 09/04/22 20:07 Differential Abdominal Pain Women: Appendicitis, Cholecystitis, diverticulosis, ischemic bowel, pancreatitis, hepatitis, UTI, gastroenteritis, AAA, incarcerated hernia, bowel obstruction, constipation, inflammatory bowel, hepatitis, peptic ulcer disease, splenic infarction, perforated viscus, vulvitis, ovarian torsion, PID, kidney stone, placenta abruption, this is not meant to be an all-inclusive list Medical Decision Making - Medical Decision Making 31 female to the emergency department for evaluation of bowel pain. Patient is well-known to our facility for chronic abdominal pain and states her nausea vomiting is not longer taking her medications recently had pain management on nerves and nerve treatment but has not fully helped. Patient pain is relieved here in the ER she can be discharged home Disposition Clinical Impression: Nausea & vomiting, Abdominal pain Disposition: HOME SELF-CARE Condition: Good Instructions (If sedation given, give patient instructions): Abdominal Pain (ED) Is patient prescribed a controlled substance at d/c from ED?: No Referrals: Isi Carolina MD [Primary Care Provider] - 1-2 days Time of Disposition: 19:50
[2022-09-04 20:26] VITALS: BP 129/86; PULSE 107; RESP 18
== END 2022-09-04 20:26 | disposition home or self-care (01) ==
LOC: EC 18:21
DX: R10.9 Unspecified abdominal pain (principal); R11.2 Nausea with vomiting, unspecified; E11.9 Type 2 diabetes mellitus without complications; F32.A Depression, unspecified; J45.909 Unspecified asthma, uncomplicated; K21.9 Gastro-esophageal reflux disease without esophagitis; Z79.4 Long term (current) use of insulin; Z79.84 Long term (current) use of oral hypoglycemic drugs; Z79.899 Other long term (current) drug therapy; Z88.0 Allergy status to penicillin; Z88.1 Allergy status to other antibiotic agents; Z88.2 Allergy status to sulfonamides; Z88.8 Allergy status to other drugs, medicaments and biological substances; Z91.030 Bee allergy status; Z91.040 Latex allergy status; Z87.891 Personal history of nicotine dependence; Z90.49 Acquired absence of other specified parts of digestive tract
CPT/HCPCS: 99284; 96372; S0183; J1170

== ENCOUNTER 2022-09-07 17:11 | Emergency (ER) | payer OTHER ==
[2022-09-07 17:15] VITALS: TEMP 98.3
[2022-09-07] MEDS ORDERED: DICYCLOMINE 10 MG/ML 2 ML AMP IM STA (17:43)
--- NOTE | 2022-09-07 17:47 | ED ---
Abdominal Pain HPI - General Chief Complaint: Abdominal Pain Stated Complaint: abd pain Time Seen by Provider: 09/07/22 17:34 Source: patient, RN notes reviewed, old records reviewed Mode of arrival: ambulatory Limitations: no limitations - History of Present Illness Initial Comments: Nontoxic appearing 31-year-old female presents to the emergency room, statse dropped off by her , complaining of left upper quadrant pain after eating steak this afternoon. Patient states that an hour after she ate she developed some sharp pain in her stomach. She did take a tramadol with no relief. Did have 1 episode of vomiting and hour after eating but nothing since. She is having no difficulty breathing or chest pain. No diarrhea. No fevers. Patient does have a history of chronic abdominal pain with gastroparesis. MD Complaint: abdominal pain -: hour(s) Location: [facility] Radiation: none Severity scale (1-10): 9 Quality: sharp Consistency: constant Improves With: nothing Treatments Prior to Arrival: other (tramadol) - Related Data Home Medications Medication Instructions Recorded Confirmed Omeprazole 20 mg PO BID 11/16/21 08/18/22 QUEtiapine FUMARATE [SEROquel XR] 600 mg PO HS 11/16/21 08/18/22 Acetaminophen [Tylenol Extra 500 mg PO Q4H PRN 03/30/22 08/18/22 Strength] Insulin Aspart [NovoLOG Flexpen] 10 units SQ TID-W/MEALS 03/30/22 08/18/22 Insulin Glargine,Hum.rec.anlog 45 units SQ HS 03/30/22 08/18/22 [Lantus Solostar Pen] Naproxen [Naprosyn] 500 mg PO BID PRN 03/30/22 08/18/22 Ondansetron Odt [Zofran ODT] 4 mg SL DAILY PRN 03/30/22 08/18/22 Propranolol HCl [Inderal] 60 mg PO DAILY 03/30/22 08/18/22 metFORMIN HCL [Glucophage] 1,000 mg PO DAILY 03/30/22 08/18/22 tiZANidine [Zanaflex] 4 mg PO BID PRN 03/30/22 08/18/22 Etonogestrel [Nexplanon] 68 mg INTRADERMA DIRECTED 06/22/22 08/18/22 traMADol HCl [Ultram] 50 mg PO Q8HR PRN 07/30/22 08/18/22 Previous Rx's Medication Instructions Recorded Albuterol Nebulized [Ventolin 2.5 mg INHALATION Q4H PRN #75 ml 06/07/22 Nebulized] Ibuprofen [Motrin] 800 mg PO Q8HR PRN #30 tab 06/07/22 Allergies Allergy/AdvReac Type Severity Reaction Status Date / Time bee pollen Allergy Severe Anaphylaxis Verified 09/07/22 17:15 haloperidol lactate Allergy Severe QUIT Verified 09/07/22 17:15 [From Haldol] BREATHING latex Allergy Severe RASH-THROAT Verified 09/07/22 17:15 CLOSES murrieta Allergy Anaphylaxis Verified 09/07/22 17:15 coconut Allergy Anaphylaxis Verified 09/07/22 17:15 pineapple Allergy Anaphylaxis Verified 09/07/22 17:15 spider venom Allergy Swelling Verified 09/07/22 17:15 Sulfa (Sulfonamide Allergy THROAT Verified 09/07/22 17:15 Antibiotics) SWELLS venom-wasp Allergy Swelling Verified 09/07/22 17:15 venom-wasp protein Allergy Swelling Verified 09/07/22 17:15 promethazine HCl AdvReac Severe Nausea & Verified 09/07/22 17:15 [From Phenergan] Vomiting amoxicillin AdvReac Nausea & Verified 09/07/22 17:15 Vomiting ANTS AdvReac Mild Anaphylaxis Uncoded 09/07/22 17:15 Review of Systems ROS Statement: Those systems with pertinent positive or pertinent negative responses have been documented in the HPI. ROS Other: All systems not noted in ROS Statement are negative. Past Medical History Past Medical History: Asthma, Diabetes Mellitus, GERD/Reflux Additional Past Medical History / Comment(s): migraines, degenerative disk disease, endometriosis, lupus, pancreatitis, DM2- insulin, gastroparesis History of Any Multi-Drug Resistant Organisms: None Reported Past Surgical History: Cholecystectomy, Orthopedic Surgery Additional Past Surgical History / Comment(s): laparoscopc surgery for endometriosis, cyst removed from left foot, EGD, Past Anesthesia/Blood Transfusion Reactions: Previous Problems w/ Anesthesia Additional Past Anesthesia/Blood Transfusion Reaction / Comment(s): hard to wake up for 48-72 hours after laparoscopic surgery-was in hosp. for 3 days Past Psychological History: Anxiety, Depression, PTSD Smoking Status: Former smoker, Vaper Past Alcohol Use History: None Reported Past Drug Use History: None Reported - Past Family History Mother Family Medical History: Cancer Additional Family Medical History / Comment(s): Migraines, pancreatic cancer, . Father Family Medical History: Coronary Artery Disease (CAD), Hypertension Additional Family Medical History / Comment(s): ddd, alcoholism & drug use General Exam Limitations: no limitations General appearance: alert, in no apparent distress Head exam: Present: atraumatic, normocephalic Eye exam: Present: normal appearance. Absent: scleral icterus, conjunctival injection, periorbital swelling Expanded Mouth exam: Present: tongue normal, tongue elevation. Absent: drooling, trismus, muffled voice Teeth exam: Present: other (Poor dentition) Neck exam: Present: full ROM. Absent: meningismus Respiratory exam: Present: normal lung sounds bilaterally. Absent: respiratory distress, accessory muscle use Cardiovascular Exam: Present: tachycardia GI/Abdominal exam: Present: soft, tenderness (Left upper quadrant). Absent: distended, guarding, rebound, rigid Extremities exam: Present: normal capillary refill. Absent: pedal edema, calf tenderness Neurological exam: Present: alert, oriented X3 Psychiatric exam: Present: normal affect, normal mood Skin exam: Present: warm, dry, normal color. Absent: cyanosis, diaphoretic, pallor Course Vital Signs 09/07/22 09/07/22 09/07/22 17:14 18:13 18:57 Temperature 98.3 F Pulse Rate 113 H 110 H 86 Respiratory 20 20 16 Rate Blood Pressure 128/91 108/69 136/68 O2 Sat by Pulse 99 98 98 Oximetry Medical Decision Making - Medical Decision Making Was pt. sent in by a medical professional or institution (, PA, PARTS TECHNICIAN, urgent care, hospital, or fdc...) When possible be specific @ -No Did you speak to anyone other than the patient for history (EMS, parent, family, police, friend...)? What history was obtained from this source @ -No Did you review nursing and triage notes (agree or disagree)? Why? @ -I reviewed and agree with nursing and triage notes Were old charts reviewed (outside hosp., previous admission, EMS record, old EKG, old radiological studies, urgent care reports/EKG's, fdc records)? Report findings @ -Last emergency room visit 09/01/2022 Differential Diagnosis (chest pain, altered mental status, abdominal pain women, abdominal pain men, vaginal bleeding, weakness, fever, dyspnea, syncope, headache, dizziness, GI bleed, back pain, seizure, CVA, palpatations, mental health, musculoskeletal)? @ -Differential Abdominal Pain Women: Appendicitis, Cholecystitis, diverticulosis, ischemic bowel, pancreatitis, hepatitis, UTI, gastroenteritis, AAA, incarcerated hernia, bowel obstruction, constipation, inflammatory bowel, hepatitis, peptic ulcer disease, splenic infarction, perforated viscus, vulvitis, ovarian torsion, PID, kidney stone, placenta abruption, this is not meant to be an all-inclusive list EKG interpreted by me (3pts min.). @ -n/a X-rays interpreted by me (1pt min.). @ -yes X-ray interpreted by me shows no evidence of obstruction. CT interpreted by me (1pt min.). @ -None done U/S interpreted by me (1pt. min.). @ -None done What testing was considered but not performed or refused? (CT, X-rays, U/S, labs)? Why? @ -Patient states she has noticed increased pain in her stomach when eating meat which she didn't eat today causing pain. She states that meat causes problems with her gastroparesis. She is seen in the emergency room multiple times every month for chronic abdominal pain and has had multiple imaging. Abdomen is soft. No active vomiting. She was given Bentyl and Toradol and directed to return with any new or concerning symptoms. What meds were considered but not given or refused? Why? @ -None Did you discuss the management of the patient with other professionals (professionals i.e. , PA, PARTS TECHNICIAN, lab, RT, psych nurse, web content & social media manager, machinist helper marine, teacher, airline pilot/first officer, shoe parts caser)? Give summary @ -No Was smoking cessation discussed for >3mins.? @ -No Was critical care preformed (if so, how long)? @ -No Were there social determinants of health that impacted care today? How? (Homelessness, low income, unemployed, alcoholism, drug addiction, transportation, low edu. Level, literacy, decrease access to med. care, senior care, rehab)? @ -No Was there de-escalation of care discussed even if they declined (Discuss DNR or withdrawal of care, Hospice)? DNR status @ -No What co-morbidities impacted this encounter? (DM, HTN, Smoking, COPD, CAD, Cancer, CVA, ARF, Chemo, Hep., AIDS, mental health diagnosis, sleep apnea, morbid obesity)? @ -Gastroparesis obesity, Asthma, diabetes, GERD, migraines, degenerative disc disease, lupus, pancreatitis, diabetes, cholecystectomy, anxiety, depression, PTSD and Was patient admitted / discharged? Hospital course, mention meds given and route, prescriptions, significant lab abnormalities, going to OR and other pertinent info. @ -Discharged Nontoxic appearing 31-year-old female presents to the emergency room, statse dropped off by her , complaining of left upper quadrant pain after eating steak this afternoon. Patient states that an hour after she ate she developed some sharp pain in her stomach. She did take a tramadol with no relief. Did have 1 episode of vomiting and hour after eating but nothing since. She is h aving no difficulty breathing or chest pain. No diarrhea. No fevers. Patient does have a history of chronic abdominal pain with gastroparesis. Patient was given Bentyl and Toradol. Vital signs are stable. No respiratory distress. Abdomen is soft. Patient has had no vomiting in the emergency room. Radiologist interpretation no radiographic evidence for an acute abdominal process. No evidence of bowel instruction or free air. Patient was discharged home directed to continue her previously prescribed pain medications and follow-up with the primary care doctor this week. Strict return parameters were discussed. Case discussed with Dr. Funk Undiagnosed new problem with uncertain prognosis? @ -No Drug Therapy requiring intensive monitoring for toxicity (Heparin, Nitro, Insulin, Cardizem)? @ -No Were any procedures done? @ -No Diagnosis/symptom? @ -Chronic abdominal pain Acute, or Chronic, or Acute on Chronic? @ -Acute on chronic Uncomplicated (without systemic symptoms) or Complicated (systemic symptoms)? @ -Uncomplicated Side effects of treatment? @ -No Exacerbation, Progression, or Severe Exacerbation? @ -No Poses a threat to life or bodily function? How? (Chest pain, USA, ID, pneumonia, PE, COPD, DKA, ARF, appy, cholecystitis, CVA, Diverticulitis, Homicidal, Suicidal, threat to staff... and all critical care pts) @ -No Disposition Clinical Impression: Abdominal pain Disposition: HOME SELF-CARE Condition: Good Instructions (If sedation given, give patient instructions): Abdominal Pain (ED) Additional Instructions: Avoid red meats as they take longer to digest and increase your risk of abdominal pain due to your gastroparesis. Continue your previously prescribed m edications. Return to the emergency room with any new or concerning symptoms including fevers or persistent nausea and vomiting. Is patient prescribed a controlled substance at d/c from ED?: No Referrals: Isi Carolina MD [Primary Care Provider] - 1-2 days Time of Disposition: 18:46
[2022-09-07] MEDS ORDERED: KETOROLAC 15 MG/ML 1 ML VIAL IM STA (18:20)
--- NOTE | 2022-09-07 18:36 | XR ---
EXAMINATION TYPE: XR abdomen acute w cxr DATE OF EXAM: 09/07/2022 6:32 PM INDICATION: Patient age:Female; 31 years old; Reason for study: abd pain; COMPARISON: Multiple priors, 08/18/2022, 07/23/2022 are the most recent TECHNIQUE: Two radiographic views of the abdomen (upright and supine) and a frontal chest radiograph were obtained. FINDINGS CHEST: Lungs/Pleura: The lungs are clear. There is no evidence of pleural effusion, focal consolidation or p neumothorax. Mediastinum: Unremarkable. Vasculature: Normal. Heart: Normal in size. Musculoskeletal: The osseous structures are intact. Other findings: No significant. FINDINGS ABDOMEN: Bowel gas pattern: Normal without dilated loops of small or large bowel. Fecal material and gas are d emonstrated throughout the colon and rectum. Abnormal calcifications: None. Musculoskeletal: Normal. Other: Cholecystectomy clips are present. IMPRESSION: 1. No radiographic evidence for acute abdominal process. 2. No acute cardiopulmonary process
[2022-09-07 18:57] VITALS: BP 136/68; PULSE 86; RESP 16
== END 2022-09-07 18:57 | disposition home or self-care (01) ==
LOC: EC 17:11
DX: R10.12 Left upper quadrant pain (principal); E11.9 Type 2 diabetes mellitus without complications; F32.A Depression, unspecified; K21.9 Gastro-esophageal reflux disease without esophagitis; F17.290 Nicotine dependence, other tobacco product, uncomplicated; Z79.84 Long term (current) use of oral hypoglycemic drugs; Z79.4 Long term (current) use of insulin; Z79.899 Other long term (current) drug therapy; Z88.0 Allergy status to penicillin; Z88.1 Allergy status to other antibiotic agents; Z88.2 Allergy status to sulfonamides; Z88.8 Allergy status to other drugs, medicaments and biological substances; Z91.030 Bee allergy status; Z91.040 Latex allergy status; Z90.49 Acquired absence of other specified parts of digestive tract
CPT/HCPCS: 74022; 99284; 96372 ×2; J0500; J1885

== ENCOUNTER 2022-09-08 09:33 | Emergency (ER) | payer OTHER ==
[2022-09-08] MEDS ORDERED: METOCLOPRAMIDE 5 MG/ML 2 ML VIAL IVP STA (10:48)
[2022-09-08] MEDS ORDERED: KETOROLAC 15 MG/ML 1 ML VIAL IVP STA (10:48)
[2022-09-08] MEDS ORDERED: ONDANSETRON 4 MG/2 ML VIAL IM STA (10:48)
[2022-09-08] MEDS ORDERED: KETOROLAC 15 MG/ML 1 ML VIAL IM STA ×2 (10:52→11:44)
[2022-09-08] MEDS ORDERED: METOCLOPRAMIDE 10 MG TAB PO STA (10:52)
--- NOTE | 2022-09-08 10:52 | ED ---
Abdominal Pain HPI - General Chief Complaint: Abdominal Pain Stated Complaint: Abd pain Time Seen by Provider: 09/08/22 09:54 Source: patient, RN notes reviewed Mode of arrival: ambulatory Limitations: no limitations - History of Present Illness Initial Comments: 31 year-old female with a past medical history significant for chronic abdominal pain presents to the emergency department with a chief complaint of abdominal pain. Patient was seen in this ED yesterday for the same. She reports that she when she was discharged home she took Bentyl and tramadol with no relief of her symptoms. She reports that she vomited twice this morning. She denies any fevers, chills, chest pain, shortness of breath, melena, hematochezia. She denies recent alcohol use. She describes her pain is chronic in nature. - Related Data Home Medications Medication Instructions Recorded Confirmed Omeprazole 20 mg PO BID 11/16/21 08/18/22 QUEtiapine FUMARATE [SEROquel XR] 600 mg PO HS 11/16/21 08/18/22 Acetaminophen [Tylenol Extra 500 mg PO Q4H PRN 03/30/22 08/18/22 Strength] Insulin Aspart [NovoLOG Flexpen] 10 units SQ TID-W/MEALS 03/30/22 08/18/22 Insulin Glargine,Hum.rec.anlog 45 units SQ HS 03/30/22 08/18/22 [Lantus Solostar Pen] Naproxen [Naprosyn] 500 mg PO BID PRN 03/30/22 08/18/22 Ondansetron Odt [Zofran ODT] 4 mg SL DAILY PRN 03/30/22 08/18/22 Propranolol HCl [Inderal] 60 mg PO DAILY 03/30/22 08/18/22 metFORMIN HCL [Glucophage] 1,000 mg PO DAILY 03/30/22 08/18/22 tiZANidine [Zanaflex] 4 mg PO BID PRN 03/30/22 08/18/22 Etonogestrel [Nexplanon] 68 mg INTRADERMA DIRECTED 06/22/22 08/18/22 traMADol HCl [Ultram] 50 mg PO Q8HR PRN 07/30/22 08/18/22 Previous Rx's Medication Instructions Recorded Albuterol Nebulized [Ventolin 2.5 mg INHALATION Q4H PRN #75 ml 06/07/22 Nebulized] Ibuprofen [Motrin] 800 mg PO Q8HR PRN #30 tab 06/07/22 Allergies Allergy/AdvReac Type Severity Reaction Status Date / Time bee pollen Allergy Severe Anaphylaxis Verified 09/08/22 09:39 haloperidol lactate Allergy Severe QUIT Verified 09/08/22 09:39 [From Haldol] BREATHING latex Allergy Severe RASH-THROAT Verified 09/08/22 09:39 CLOSES [place] Allergy Anaphylaxis Verified 09/08/22 09:39 coconut Allergy Anaphylaxis Verified 09/08/22 09:39 pineapple Allergy Anaphylaxis Verified 09/08/22 09:39 spider venom Allergy Swelling Verified 09/08/22 09:39 Sulfa (Sulfonamide Allergy THROAT Verified 09/08/22 09:39 Antibiotics) SWELLS venom-wasp Allergy Swelling Verified 09/08/22 09:39 venom-wasp protein Allergy Swelling Verified 09/08/22 09:39 promethazine HCl AdvReac Severe Nausea & Verified 09/08/22 09:39 [From Phenergan] Vomiting amoxicillin AdvReac Nausea & Verified 09/08/22 09:39 Vomiting ANTS AdvReac Mild Anaphylaxis Uncoded 09/08/22 09:39 Review of Systems ROS Statement: Those systems with pertinent positive or pertinent negative responses have been documented in the HPI. ROS Other: All systems not noted in ROS Statement are negative. Past Medical History Past Medical History: Asthma, Diabetes Mellitus, GERD/Reflux Additional Past Medical History / Comment(s): migraines, degenerative disk disease, endometriosis, lupus, pancreatitis, DM2- insulin, gastroparesis History of Any Multi-Drug Resistant Organisms: None Reported Past Surgical History: Cholecystectomy, Orthopedic Surgery Additional Past Surgical History / Comment(s): laparoscopc surgery for endometriosis, cyst removed from left foot, EGD, Past Anesthesia/Blood Transfusion Reactions: Previous Problems w/ Anesthesia Additional Past Anesthesia/Blood Transfusion Reaction / Comment(s): hard to wake up for 48-72 hours after laparoscopic surgery-was in hosp. for 3 days Past Psychological History: Anxiety, Depression, PTSD Smoking Status: Former smoker, Vaper Past Alcohol Use History: None Reported Past Drug Use History: None Reported - Past Family History Mother Family Medical History: Cancer Additional Family Medical History / Comment(s): Migraines, pancreatic cancer, . Father Family Medical History: Coronary Artery Disease (CAD), Hypertension Additional Family Medical History / Comment(s): ddd, alcoholism & drug use General Exam - General Exam Comments Initial Comments: General: Alert, in no acute distress Head: atraumatic normocephalic. Eyes PERRL, EOMI intact, mucous membranes moist Respiratory: Lungs clear to auscultation bilaterally Cardiovascular: Heart rate regular rate and rhythm Abdominal: Soft without guarding or rebound, mild epigastric tenderness Extremities: Normal inspection with full range of motion and normal capillary refill Neuroogic: alert and oriented 3, CN II-XII intact, able to ambulate with steady gait Skin: warm dry and intact with normal color Limitations: no limitations Course Vital Signs 09/08/22 09/08/22 09/08/22 09:36 11:16 12:51 Temperature 97.7 F 98.1 F Pulse Rate 103 H 88 82 Respiratory 18 16 Rate Blood Pressure 108/73 133/83 132/81 O2 Sat by Pulse 98 98 99 Oximetry Medical Decision Making - Medical Decision Making Was pt. sent in by a medical professional or institution ([facility] L[facility]pez, CORN COOKER, urgent care, hospital, or [place] [facility] facility...) When possible be specific @ -[No] Did you speak to anyone other than the patient for history (EMS, parent, family, police, friend...)? What history was obtained from this source @ -[No] Did you review nursing and triage notes (agree or disagree)? Why? @ -[I reviewed and agree with nursing and triage notes] Were old charts reviewed (outside hosp., previous admission, EMS record, old EKG, old radiological studies, urgent care reports/EKG's, [place] [facility] records)? Report findings @ -[No old charts were reviewed] Differential Diagnosis (chest pain, altered mental status, abdominal pain women, abdominal pain men, vaginal bleeding, weakness, fever, dyspnea, syncope, headache, dizziness, GI bleed, back pain, seizure, CVA, palpatations, mental health, musculoskeletal)? @ -[not applicable] EKG interpreted by me (3pts min.). @ -[As above] X-rays interpreted by me (1pt min.). @ -[None done] CT interpreted by me (1pt min.). @ -[None done] U/S interpreted by me (1pt. min.). @ -[None done] What testing was considered but not performed or refused? (CT, X-rays, U/S, labs)? Why? @ -Patient had lab work and imaging which were unremarkable proximally 7 days prior to evaluation. What meds were considered but not given or refused? Why? @ -[None] Did you discuss the management of the patient with other professionals (professionals i.e. Dr., PA, CORN COOKER, lab, RT, psych nurse, dialysis social worker, precision dyer, teacher, multisensor intelligence officer, senior case manager)? Give summary @ -[No] Was smoking cessation discussed for >3mins.? @ -[No] Was critical care preformed (if so, how long)? @ -[No] Were there social determinants of health that impacted care today? How? (Homelessness, low income, unemployed, alcoholism, drug addiction, transportation, low edu. Level, literacy, decrease access to med. care, fci, rehab)? @ -[No] Was there de-escalation of care discussed even if they declined (Discuss DNR or withdrawal of care, Hospice)? DNR status @ -[No] What co-morbidities impacted this encounter? (DM, HTN, Smoking, COPD, CAD, Cancer, CVA, ARF, Chemo, Hep., AIDS, mental health diagnosis, sleep apnea, morbid obesity)? @ -[None] Was patient admitted / discharged? Hospital course, mention meds given and route, prescriptions, significant lab abnormalities, going to OR and other pertinent info. @ -Discharged. This is a 31-year-old female who presents to the emergency department with abdominal pain. Patient had a thorough history and physical exam performed while in the ED. Physical exam is essentially unremarkable heart rate regular rate and rhythm, lungs clear to auscultation bilaterally, abdomen soft and non-tender. Patient was given Bentyl, Toradol, Zofran, Pepcid with mild symptomatically relief on the ED. I discussed results in detail with the patient's mother who verbalized understanding and all questions were addressed. She reports that her abdominal pain is chronic in nature however she is struggling to have management of her pain symptoms. Return precautions were discussed at length. The patient was discharged in stable condition. Discussed with ILANA Sultana who agrees with plan of care Undiagnosed new problem with uncertain prognosis? @ -[No] Drug Therapy requiring intensive monitoring for toxicity (Heparin, Nitro, Insulin, Cardizem)? @ -[No] Were any procedures done? @ -[No] Diagnosis/symptom? @ -Abdominal Pain Acute, or Chronic, or Acute on Chronic? @ -Acute Uncomplicated (without systemic symptoms) or Complicated (systemic symptoms)? @ -Uncomplicated Side effects of treatment? @ -[No] Exacerbation, Progression, or Severe Exacerbation? @ -[No] Poses a threat to life or bodily function? How? (Chest pain, USA, [place], pneumonia, PE, COPD, DKA, ARF, appy, cholecystitis, CVA, Diverticulitis, Homicidal, Suicidal, threat to staff... and all critical care pts) @ -Low likelihood Disposition Clinical Impression: Abdominal pain Disposition: HOME SELF-CARE Condition: Stable Instructions (If sedation given, give patient instructions): Abdominal Pain (ED) Additional Instructions: Please follow-up with primary care Please return if symptoms worsen or persist Is patient prescribed a controlled substance at d/c from ED?: No Referrals: Isi Carolina MD [Primary Care Provider] - 1-2 days Time of Disposition: 12:43
[2022-09-08] MEDS ORDERED: diphenhydrAMINE 50 MG/ML 1 ML VIAL IM STA (12:07)
[2022-09-08 12:53] VITALS: BP 132/81; PULSE 82; RESP 16; TEMP 98.1
== END 2022-09-08 12:55 | disposition home or self-care (01) ==
LOC: EC 09:33
DX: R10.13 Epigastric pain (principal); K21.9 Gastro-esophageal reflux disease without esophagitis; E11.9 Type 2 diabetes mellitus without complications; J45.909 Unspecified asthma, uncomplicated; F32.A Depression, unspecified; F41.9 Anxiety disorder, unspecified; F17.290 Nicotine dependence, other tobacco product, uncomplicated; Z91.030 Bee allergy status; Z91.040 Latex allergy status; Z91.018 Allergy to other foods; Z91.038 Other insect allergy status; Z88.8 Allergy status to other drugs, medicaments and biological substances; Z79.4 Long term (current) use of insulin; Z88.0 Allergy status to penicillin; Z88.1 Allergy status to other antibiotic agents; Z88.2 Allergy status to sulfonamides; Z79.84 Long term (current) use of oral hypoglycemic drugs; Z79.899 Other long term (current) drug therapy
CPT/HCPCS: 99284; 96372 ×4; J1200; J2405; J1885

== ENCOUNTER 2022-09-12 00:53 | Emergency (ER) | payer OTHER ==
[2022-09-12 01:07] VITALS: TEMP 97.8
[2022-09-12] MEDS ORDERED: KETOROLAC 15 MG/ML 1 ML VIAL IVP STA (01:50)
[2022-09-12] MEDS ORDERED: diphenhydrAMINE 50 MG/ML 1 ML VIAL IVP STA (01:50)
[2022-09-12] MEDS ORDERED: ONDANSETRON 4 MG/2 ML VIAL IVP STA (01:51)
[2022-09-12] MEDS ORDERED: SODIUM CHLORIDE 0.9% 1,000 ML IV STA (01:52)
[2022-09-12] MEDS ORDERED: KETOROLAC 15 MG/ML 1 ML VIAL IM STA (01:58)
[2022-09-12 03:20] VITALS: BP 132/67; PULSE 93; RESP 16
--- NOTE | 2022-09-12 03:58 | XR ---
EXAM: XR Abdomen, 2 Views CLINICAL HISTORY: ITS.REASON XR Reason: abd pain TECHNIQUE: Frontal view of the abdomen/pelvis with upright view of the abdomen. COMPARISON: XR Abdomen dated 07/23/2022 FINDINGS: Intraperitoneal space: No free air. Gastrointestinal tract: Moderate fecal material throughout most of the colon. No obvious rectal distention. Organs: Cholecystectomy. Bones/joints: Unremarkable. IMPRESSION: No acute findings in the abdomen or pelvis.
--- NOTE | 2022-09-12 04:05 | ED ---
Abdominal Pain HPI - General Chief Complaint: Abdominal Pain Stated Complaint: ABD Pain Time Seen by Provider: 09/12/22 01:49 Source: patient Mode of arrival: ambulatory Limitations: no limitations - History of Present Illness Initial Comments: Patient is a 31-year-old female presents to the emergency department for abdominal pain. It started 1 hour ago in the right abdomen. Patient has history of chronic abdominal pain she presents often the emergency department for this complaint. She denies fever, chills, nausea, vomiting, diarrhea, constipation, blood in stool. Denies blood in urine, burning with urination, increased urinary frequency/urgency. She has history of cholecystectomy. - Related Data Home Medications Medication Instructions Recorded Confirmed Omeprazole 20 mg PO BID 11/16/21 08/18/22 QUEtiapine FUMARATE [SEROquel XR] 600 mg PO HS 11/16/21 08/18/22 Acetaminophen [Tylenol Extra 500 mg PO Q4H PRN 03/30/22 08/18/22 Strength] Insulin Aspart [NovoLOG Flexpen] 10 units SQ TID-W/MEALS 03/30/22 08/18/22 Insulin Glargine,Hum.rec.anlog 45 units SQ HS 03/30/22 08/18/22 [Lantus Solostar Pen] Naproxen [Naprosyn] 500 mg PO BID PRN 03/30/22 08/18/22 Ondansetron Odt [Zofran ODT] 4 mg SL DAILY PRN 03/30/22 08/18/22 Propranolol HCl [Inderal] 60 mg PO DAILY 03/30/22 08/18/22 metFORMIN HCL [Glucophage] 1,000 mg PO DAILY 03/30/22 08/18/22 tiZANidine [Zanaflex] 4 mg PO BID PRN 03/30/22 08/18/22 Etonogestrel [Nexplanon] 68 mg INTRADERMA DIRECTED 06/22/22 08/18/22 traMADol HCl [Ultram] 50 mg PO Q8HR PRN 07/30/22 08/18/22 Previous Rx's Medication Instructions Recorded Albuterol Nebulized [Ventolin 2.5 mg INHALATION Q4H PRN #75 ml 06/07/22 Nebulized] Ibuprofen [Motrin] 800 mg PO Q8HR PRN #30 tab 06/07/22 Allergies Allergy/AdvReac Type Severity Reaction Status Date / Time bee pollen Allergy Severe Anaphylaxis Verified 09/08/22 09:39 haloperidol lactate Allergy Severe QUIT Verified 09/08/22 09:39 [From Haldol] BREATHING latex Allergy Severe RASH-THROAT Verified 09/08/22 09:39 CLOSES [place] Allergy Anaphylaxis Verified 09/08/22 09:39 coconut Allergy Anaphylaxis Verified 09/08/22 09:39 pineapple Allergy Anaphylaxis Verified 09/08/22 09:39 spider venom Allergy Swelling Verified 09/08/22 09:39 Sulfa (Sulfonamide Allergy THROAT Verified 09/08/22 09:39 Antibiotics) SWELLS venom-wasp Allergy Swelling Verified 09/08/22 09:39 venom-wasp protein Allergy Swelling Verified 09/08/22 09:39 promethazine HCl AdvReac Severe Nausea & Verified 09/08/22 09:39 [From Phenergan] Vomiting amoxicillin AdvReac Nausea & Verified 09/08/22 09:39 Vomiting ANTS AdvReac Mild Anaphylaxis Uncoded 09/08/22 09:39 Review of Systems ROS Statement: Those systems with pertinent positive or pertinent negative responses have been documented in the HPI. ROS Other: All systems not noted in ROS Statement are negative. Past Medical History Past Medical History: Asthma, Diabetes Mellitus, GERD/Reflux Additional Past Medical History / Comment(s): migraines, degenerative disk disease, endometriosis, lupus, pancreatitis, DM2- insulin, gastroparesis History of Any Multi-Drug Resistant Organisms: None Reported Past Surgical History: Cholecystectomy, Orthopedic Surgery Additional Past Surgical History / Comment(s): laparoscopc surgery for endometriosis, cyst removed from left foot, EGD, Past Anesthesia/Blood Transfusion Reactions: Previous Problems w/ Anesthesia Additional Past Anesthesia/Blood Transfusion Reaction / Comment(s): hard to wake up for 48-72 hours after laparoscopic surgery-was in hosp. for 3 days Past Psychological History: Anxiety, Depression, PTSD Smoking Status: Former smoker, Vaper Past Alcohol Use History: None Reported Past Drug Use History: None Reported - Past Family History Mother Family Medical History: Cancer Additional Family Medical History / Comment(s): Migraines, pancreatic cancer, . Father Family Medical History: Coronary Artery Disease (CAD), Hypertension Additional Family Medical History / Comment(s): ddd, alcoholism & drug use General Exam Limitations: no limitations General appearance: alert, in no apparent distress Head exam: Present: atraumatic, normocephalic, normal inspection Respiratory exam: Present: normal lung sounds bilaterally. Absent: respiratory distress, wheezes, rales, rhonchi, stridor Cardiovascular Exam: Present: regular rate, normal rhythm, normal heart sounds. Absent: systolic murmur, diastolic murmur, rubs, gallop, clicks GI/Abdominal exam: Present: soft, normal bowel sounds. Absent: distended, tenderness, guarding, rebound, rigid Neurological exam: Present: alert, oriented X3, CN II-XII intact Psychiatric exam: Present: normal affect, normal mood Skin exam: Present: warm, dry, intact, normal color. Absent: rash Course Vital Signs 09/12/22 09/12/22 01:01 03:19 Temperature 97.8 F Pulse Rate 103 H 93 Respiratory 17 16 Rate Blood Pressure 118/88 132/67 O2 Sat by Pulse 98 96 Oximetry Medical Decision Making - Medical Decision Making Was pt. sent in by a medical professional or institution (, PA, JAILKEEPER, urgent care, hospital, or penitentiary...) When possible be specific @ -No Did you speak to anyone other than the patient for history (EMS, parent, family, police, friend...)? What history was obtained from this source @ -No Did you review nursing and triage notes (agree or disagree)? Why? @ -I reviewed and agree with nursing and triage notes Were old charts reviewed (outside hosp., previous admission, EMS record, old EKG, old radiological studies, urgent care reports/EKG's, penitentiary records)? Report findings @ -No old charts were reviewed Differential Diagnosis (chest pain, altered mental status, abdominal pain women, abdominal pain men, vaginal bleeding, weakness, fever, dyspnea, syncope, headache, dizziness, GI bleed, back pain, seizure, CVA, palpatations, mental health)? @ -Differential Abdominal Pain Women: Appendicitis, Cholecystitis, diverticulosis, ischemic bowel, pancreatitis, hepatitis, UTI, gastroenteritis, AAA, incarcerated hernia, bowel obstruction, constipation, inflammatory bowel, hepatitis, peptic ulcer disease, splenic infarction, perforated viscus, vulvitis, ovarian torsion, PID, kidney stone, placenta abruption, this is not meant to be an all-inclusive list EKG interpreted by me (3pts min.). @ -As above X-rays interpreted by me (1pt min.). @ -Yes, KUB x-ray is negative for acute process CT interpreted by me (1pt min.). @ -None done U/S interpreted by me (1pt. min.). @ -None done What testing was considered but not performed or refused? (CT, X-rays, U/S, labs)? Why? @ -Considered laboratory studies however patient has chronic abdominal pain she is nontender, no fever or vomiting. What meds were considered but not given or refused? Why? @ -None Did you discuss the management of the patient with other professionals (professionals i.e. Dr., PA, JAILKEEPER, lab, RT, psych nurse, dialysis social worker, table setter, teacher, workers' compensation hearings officer, correctional casework specialist)? Give summary @ -No Was smoking cessation discussed for >3mins.? @ -No Was critical care preformed (if so, how long)? @ -No Were there social determinants of health that impacted care today? How? (Homelessness, low income, unemployed, alcoholism, drug addiction, transportat ion, low edu. Level, literacy, decrease access to med. care, half-way, rehab)? @ -No Was there de-escalation of care discussed even if they declined (Discuss DNR or withdrawal of care, Hospice)? DNR status @ -No What co-morbidities impacted this encounter? (DM, HTN, Smoking, COPD, CAD, Cancer, CVA, ARF, Chemo, Hep., AIDS, mental health diagnosis, sleep apnea, morbid obesity)? @ -None Was patient admitted / discharged? Hospital course, mention meds given and route, prescriptions, significant lab abnormalities, going to OR and other pertinent info. @ -Discharged Undiagnosed new problem with uncertain prognosis? @ -No Drug Therapy requiring intensive monitoring for toxicity (Heparin, Nitro, Insulin, Cardizem)? @ -No Were any procedures done? @ -No Diagnosis/symptom? @ -chronic abdominal pain Acute, or Chronic, or Acute on Chronic? @ -acute on chronic Uncomplicated (without systemic symptoms) or Complicated (systemic symptoms)? @ -uncomplicated Side effects of treatment? @ -No Exacerbation, Progression, or Severe Exacerbation? @ -No Poses a threat to life or bodily function? How? (Chest pain, USA, PR, pneumonia, PE, COPD, DKA, ARF, appy, cholecystitis, CVA, Diverticulitis, Homicidal, Suicidal, threat to staff... and all critical care pts) @ -No Dr. Vasquez is my attending Disposition Clinical Impression: Chronic abdominal pain Disposition: HOME SELF-CARE Condition: Good Instructions (If sedation given, give patient instructions): Chronic Abdominal Pain (ED) Additional Instructions: It is important to follow-up with pain management for your chronic abdominal pain. Return to the emergency department if you experience new, concerning, or worsening symptoms. Is patient prescribed a controlled substance at d/c from ED?: No Referrals: Isi Carolina MD [Primary Care Provider] - 1-2 days
== END 2022-09-12 04:11 | disposition home or self-care (01) ==
LOC: EC 00:53
DX: G89.29 Other chronic pain (principal); R10.9 Unspecified abdominal pain; J45.909 Unspecified asthma, uncomplicated; E11.9 Type 2 diabetes mellitus without complications; K21.9 Gastro-esophageal reflux disease without esophagitis; F41.9 Anxiety disorder, unspecified; F17.290 Nicotine dependence, other tobacco product, uncomplicated; F32.A Depression, unspecified; Z79.4 Long term (current) use of insulin; Z79.84 Long term (current) use of oral hypoglycemic drugs; Z79.899 Other long term (current) drug therapy; Z91.030 Bee allergy status; Z91.040 Latex allergy status; Z91.018 Allergy to other foods; Z88.2 Allergy status to sulfonamides; Z88.0 Allergy status to penicillin; Z88.8 Allergy status to other drugs, medicaments and biological substances
CPT/HCPCS: 74018; 99284; 96372; J1885

== ENCOUNTER 2022-09-18 17:58 | Observation (INO) | payer BC, OTHER ==
[2022-09-18] MEDS ORDERED: ONDANSETRON 4 MG/2 ML VIAL IVP STA (20:45)
[2022-09-18] MEDS ORDERED: diphenhydrAMINE 50 MG/ML 1 ML VIAL IVP STA ×2 (20:45→22:27)
[2022-09-18] MEDS ORDERED: SODIUM CHLORIDE 0.9% 1,000 ML IV STA (20:45)
[2022-09-18] MEDS ORDERED: KETOROLAC 15 MG/ML 1 ML VIAL IVP STA (20:45)
[2022-09-18 21:38] LABS: Basophils % (A) 0 %; Eosinophils # (A) 0.1 k/uL (0-0.7); Eosinophils % (A) 3 %; HCT 36.6 % (34.0-46.0); HGB 12.2 gm/dL (11.4-16.0); Lymphocytes # (A) 1.9 k/uL (1.0-4.8); Lymphocytes % (A) 41 %; MCH 29.7 pg (25.0-35.0); MCHC 33.2 g/dL (31.0-37.0); MCV 89.5 fL (80.0-100.0); Mean Platelet Volume 8.6; Monocytes # (A) 0.2 k/uL (0-1.0); Monocytes % (A) 4 %; Neutrophils # (A) 2.3 k/uL (1.3-7.7); Neutrophils % (A) 49 %; Platelet Count 250 k/uL (150-450); RBC 4.09 m/uL (3.80-5.40); RDW 15.4 % (11.5-15.5); WBC 4.6 k/uL (3.8-10.6)
[2022-09-18 21:54] LABS: ALT 20 U/L (4-34); AST 21 U/L (14-36); African American GFR (CKD) >90 (>60 ml/min/1.73 sqM); Alkaline Phosphatase 74 U/L (38-126); Amylase 63 U/L (30-110); Anion Gap 11 mmol/L; Blood Urea Nitrogen 13 mg/dL (7-17); Calcium 10.9 mg/dL (8.4-10.2); Carbon Dioxide 25 mmol/L (22-30); Chloride 100 mmol/L (98-107); Glucose 282 mg/dL (74-99); Lipase 1728 U/L (23-300); Non-African American GFR(CKD) >90 (>60 ml/min/1.73 sqM); Potassium 4.3 mmol/L (3.5-5.1); Sodium 136 mmol/L (137-145); Total Bilirubin 0.3 mg/dL (0.2-1.3); Total Protein 7.2 g/dL (6.3-8.2)
[2022-09-18] MEDS ORDERED: HYDROmorphone 1 MG/ML 1 ML SYRINGE IVP STA (22:13)
--- NOTE | 2022-09-18 22:29 | ED ---
Abdominal Pain HPI - General Chief Complaint: Abdominal Pain Stated Complaint: abd pain Time Seen by Provider: 09/18/22 19:01 Source: patient, RN notes reviewed Mode of arrival: ambulatory Limitations: no limitations - History of Present Illness Initial Comments: This is a 31-year-old female who presents to the emergency department for abdominal pain. Patient is very well-known to this emergency department for repeated visits regarding her abdominal pain. She has a history of chronic pancreatitis, prompting her recurrent visits for pain management. She states that her current pain is in the epigastric, right upper quadrant, and left upper quadrant region. Pain became severe approximately one hour prior to arrival. She has associated nausea. She is currently following with the [facility] regarding the chronic pancreatitis. She is scheduled for a gastric emptying study next week to evaluate for other signs of her ongoing symptoms, as her evaluation of the pancreas at this time has not revealed any cause for her recurrent symptoms. She is on atorvastatin and fenofibrate for her triglycerides, which she states that she started about one year ago. Denies any fevers, chills, sore throat, cough, dyspnea, chest pain, palpitations, diarrhea, back pain, or headaches. MD Complaint: abdominal pain - Related Data Home Medications Medication Instructions Recorded Confirmed Omeprazole 20 mg PO BID 11/16/21 09/18/22 QUEtiapine FUMARATE [SEROquel XR] 600 mg PO HS 11/16/21 09/18/22 Acetaminophen [Tylenol Extra 500 mg PO Q4H PRN 03/30/22 09/18/22 Strength] Insulin Aspart [NovoLOG Flexpen] See Protocol SQ TID-W/MEALS PRN 03/30/2201/02 Insulin Glargine,Hum.rec.anlog 45 units SQ DAILY 03/30/22 09/18/22 [Lantus Solostar Pen] Ondansetron Odt [Zofran ODT] 4 mg SL Q6H PRN 03/30/22 09/18/22 tiZANidine [Zanaflex] 4 mg PO BID PRN 03/30/22 09/18/22 Etonogestrel [Nexplanon] 68 mg INTRADERMA DIRECTED 06/22/22 09/18/22 traMADol HCl [Ultram] 50 mg PO Q8HR PRN 07/30/22 09/18/22 Albuterol Nebulized [Ventolin 2.5 mg INHALATION RT-Q4H PRN 09/18/22 09/18/22 Nebulized] Dicyclomine [Bentyl] 20 mg PO QID PRN 09/18/22 09/18/22 Insulin Aspart [NovoLOG Flexpen] 10 units SQ TID-W/MEALS 09/18/22 09/18/22 Lipase/Protease/Amylase [Zenpep Dr 2 cap PO TID-W/MEALS 09/18/22 09/18/22 5,000 Unit Capsule] Pioglitazone [Actos] 30 mg PO DAILY 09/18/22 09/18/22 Propranolol LA [Inderal LA] 60 mg PO DAILY 09/18/22 09/18/22 Previous Rx's Medication Instructions Recorded Ibuprofen [Motrin] 800 mg PO Q8HR PRN #30 tab 06/07/22 Allergies Allergy/AdvReac Type Severity Reaction Status Date / Time bee pollen Allergy Severe Anaphylaxis Verified 09/18/22 22:54 haloperidol lactate Allergy Severe QUIT Verified 09/18/22 22:54 [From Haldol] BREATHING latex Allergy Severe RASH-THROAT Verified 09/18/22 22:54 CLOSES [place] Allergy Anaphylaxis Verified 09/18/22 22:54 coconut Allergy Anaphylaxis Verified 09/18/22 22:54 pineapple Allergy Anaphylaxis Verified 09/18/22 22:54 spider venom Allergy Swelling Verified 09/18/22 22:54 Sulfa (Sulfonamide Allergy THROAT Verified 09/18/22 22:54 Antibiotics) SWELLS venom-wasp Allergy Swelling Verified 09/18/22 22:54 venom-wasp protein Allergy Swelling Verified 09/18/22 22:54 promethazine HCl AdvReac Severe Nausea & Verified 09/18/22 22:54 [From Phenergan] Vomiting amoxicillin AdvReac Nausea & Verified 09/18/22 22:54 Vomiting ANTS AdvReac Mild Anaphylaxis Uncoded 09/18/22 18:15 Review of Systems ROS Statement: Those systems with pertinent positive or pertinent negative responses have been documented in the HPI. ROS Other: All systems not noted in ROS Statement are negative. Past Medical History Past Medical History: Asthma, Diabetes Mellitus, GERD/Reflux Additional Past Medical History / Comment(s): migraines, degenerative disk disease, endometriosis, lupus, pancreatitis, DM2- insulin, gastroparesis History of Any Multi-Drug Resistant Organisms: None Reported Past Surgical History: Cholecystectomy, Orthopedic Surgery Additional Past Surgical History / Comment(s): laparoscopc surgery for endometriosis, cyst removed from left foot, EGD, Past Anesthesia/Blood Transfusion Reactions: Previous Problems w/ Anesthesia Additional Past Anesthesia/Blood Transfusion Reaction / Comment(s): hard to wake up for 48-72 hours after laparoscopic surgery-was in hosp. for 3 days Past Psychological History: Anxiety, Depression, PTSD Smoking Status: Former smoker, Vaper Past Alcohol Use History: None Reported Past Drug Use History: None Reported - Past Family History Mother Family Medical History: Cancer Additional Family Medical History / Comment(s): Migraines, pancreatic cancer, . Father Family Medical History: Coronary Artery Disease (CAD), Hypertension Additional Family Medical History / Comment(s): ddd, alcoholism & drug use General Exam Limitations: no limitations General appearance: alert, in distress Head exam: Present: atraumatic, normocephalic, normal inspection Respiratory exam: Present: normal lung sounds bilaterally. Absent: respiratory distress, wheezes, rales, rhonchi, stridor Cardiovascular Exam: Present: regular rate, normal rhythm, normal heart sounds. Absent: systolic murmur, diastolic murmur, rubs, gallop, clicks GI/Abdominal exam: Present: soft, tenderness (RUQ, LUQ, epigastric), normal bowel sounds. Absent: distended Neurological exam: Present: alert, oriented X3, CN II-XII intact Psychiatric exam: Present: normal affect, normal mood Skin exam: Present: warm, dry, intact, normal color. Absent: rash Course Vital Signs 09/18/22 09/18/22 09/18/22 18:13 21:00 21:50 Temperature 97.8 F Pulse Rate 127 H 101 H 94 Respiratory 20 17 18 Rate Blood Pressure 131/86 117/60 116/79 O2 Sat by Pulse 98 100 100 Oximetry 09/18/22 09/19/22 09/19/22 22:10 00:30 01:00 Temperature Pulse Rate 86 85 Respiratory 18 18 Rate Blood Pressure 121/80 106/68 O2 Sat by Pulse 100 99 100 Oximetry 09/19/22 09/19/22 09/19/22 01:30 02:00 02:30 Temperature Pulse Rate 95 Respiratory 17 Rate Blood Pressure 105/59 110/64 107/76 O2 Sat by Pulse 98 91 L 94 L Oximetry 09/19/22 03:00 Temperature Pulse Rate Respiratory Rate Blood Pressure 120/82 O2 Sat by Pulse Oximetry Medical Decision Making - Medical Decision Making This is a 31-year-old female who presents to the emergency department for abdominal pain. Was pt. sent in by a medical professional or institution? @ -No Did you speak to anyone other than the patient for history? @ -No Did you review nursing and triage notes? @ -Yes, and I agree, it is accurate with regards to the patient's symptoms. Were old charts reviewed? @ -No Differential Diagnosis? @ -Differential Abdominal Pain Women: Appendicitis, diverticulosis, ischemic bowel, pancreatitis, hepatitis, UTI, gastroenteritis, AAA, incarcerated hernia, bowel obstruction, constipation, inflammatory bowel, hepatitis, peptic ulcer disease, splenic infarction, perfora dawood viscus, vulvitis, ovarian torsion, PID, kidney stone, placenta abruption, this is not meant to be an all-inclusive list EKG interpreted by me (3pts min.)? @ -Not obtained X-rays interpreted by me (1pt min.)? @ -Not obtained CT interpreted by me (1pt min.)? @ -Not obtained U/S interpreted by me (1pt. min.)? @ -Not obtained What testing was considered but not performed? (CT, X-rays, U/S, labs)? Why? @ -None What meds were considered but not given? Why? @ -None Did you discuss the management of the patient with other professionals? @ -Yes, Dr. Ramirez, who accepts the patient for admission. Did you reconcile home meds? @ -No Was smoking cessation discussed for >3mins.? @ -No Was critical care preformed (if so, how long)? @ -No Were there social determinants of health that impacted care today? How? (Homelessness, low income, unemployed, alcoholism, drug addiction, transportation, low edu. Level, literacy, decrease access to med. care, shelter, rehab)? @ -No Was there de-escalation of care discussed even if they declined? (Discuss DNR or withdrawal of care, Hospice)? @ -No What co-morbidities impacted this encounter? (DM, HTN, Smoking, COPD, CAD, Cancer, CVA, Hep., AIDS, mental health diagnosis, sleep apnea, morbid obesity)? @ -Chronic pancreatitis, DM, obesity, hyperlipidemia Was patient admitted / discharged? @ -Admitted. Lab work obtained revealing a Lipase of 1728 suggesting an acute pancreatitis. Imaging not performed at this time due to the significant amount of imaging that the patient has had in the past with regards to recurrent bouts of pancreatitis. Patient admitted to medicine for acute pancreatitis. Lipid panel was ordered for further evaluation of her triglycerides with results pending at the time of admission. Patient kept NPO and started on maintenance fluids at 130 mL/hr. PRN Benadryl was ordered, as the patient states that she gets itchy with pain medication. Undiagnosed new problem with uncertain prognosis? @ -None Drug Therapy requiring intensive monitoring for toxicity (Heparin, Nitro, Insulin, Cardizem)? @ -None Were any procedures done? @ -None Diagnosis/symptom? @ -Acute pancreatitis Acute, or Chronic, or Acute on Chronic? @ -Acute on chronic Uncomplicated (without systemic symptoms) or Complicated (systemic symptoms)? @ -Complicated Side effects of treatment? @ -None Exacerbation, Progression, or Severe Exacerbation] @ -Exacerbation Poses a threat to life or bodily function? @ -Yes This case was discussed in detail with the attending ED physician, Dr. Rojas. Presentation, findings, and treatment plan discussed in detail as well. - Lab Data Result diagrams: 09/18/22 21:19 09/18/22 21:19 Lab Results 09/18/22 09/18/22 09/18/22 Range/Units 21:19 21:19 22:26 WBC 4.6 (3.8-10.6) k/uL RBC 4.09 (3.80-5.40) m/uL Hgb 12.2 (11.4-16.0) gm/dL Hct 36.6 (34.0-46.0) % MCV 89.5 (80.0-100.0) fL MCH 29.7 (25.0-35.0) pg MCHC 33.2 (31.0-37.0) g/dL RDW 15.4 (11.5-15.5) % Plt Count 250 (150-450) k/uL MPV 8.6 Neutrophils % 49 % Lymphocytes % 41 % Monocytes % 4 % Eosinophils % 3 % Basophils % 0 % Neutrophils # 2.3 (1.3-7.7) k/uL Lymphocytes # 1.9 (1.0-4.8) k/uL Monocytes # 0.2 (0-1.0) k/uL Eosinophils # 0.1 (0-0.7) k/uL Basophils # 0.0 (0-0.2) k/uL Sodium 136 L (137-145) mmol/L Potassium 4.3 (3.5-5.1) mmol/L Chloride 100 (98-107) mmol/L Carbon Dioxide 25 (22-30) mmol/L Anion Gap 11 mmol/L BUN 13 (7-17) mg/dL Creatinine 0.77 (0.52-1.04) mg/dL Est GFR (CKD-EPI)AfAm >90 (>60 ml/min/1.73 sqM) Est GFR (CKD-EPI)NonAf >90 (>60 ml/min/1.73 sqM) Glucose 282 H (74-99) mg/dL Calcium 10.9 H (8.4-10.2) mg/dL Total Bilirubin 0.3 (0.2-1.3) mg/dL AST 21 (14-36) U/L ALT 20 (4-34) U/L Alkaline Phosphatase 74 (38-126) U/L Total Protein 7.2 (6.3-8.2) g/dL Albumin 4.0 (3.5-5.0) g/dL Triglycerides 439.00 H (0.00-149.00) mg/dL Cholesterol 185.00 (0.00-200.00) mg/dL LDL Cholesterol Direct 99.20 (0.00-129.00) mg/dL LDL Cholesterol, Calc 63.3 (0.0-131.0) mg/dL VLDL Cholesterol, Calc 87.80 H (5.00-40.00) mg/dL HDL Cholesterol 33.90 L (40.00-60.00) mg/dL Cholesterol/HDL Ratio 5.46 Ratio Amylase 63 (30-110) U/L Lipase 1728 H (23-300) U/L Disposition Clinical Impression: Pancreatitis Disposition: ADMITTED IP TO THIS HOSP
[2022-09-18] MEDS ORDERED: ONDANSETRON 4 MG/2 ML VIAL IVP PRN (23:13)
[2022-09-18] MEDS ORDERED: HYDROmorphone 0.5 MG/0.5 ML SYRINGE IVP PRN (23:13)
[2022-09-18] MEDS ORDERED: IBUPROFEN 400 MG TAB PO PRN (23:13)
[2022-09-18] MEDS ORDERED: NALOXONE 0.4 MG/ML 1 ML VIAL IV PRN (23:13)
[2022-09-18] MEDS ORDERED: ACETAMINOPHEN TAB 325 MG TAB PO PRN (23:13)
[2022-09-19] MEDS: SODIUM CHLORIDE 0.9% 1,000 ML IV SCH ×4 (00:19→23:58)
[2022-09-19] MEDS: HYDROmorphone 1 MG/ML 1 ML SYRINGE IVP PRN ×7 (01:12→23:57)
[2022-09-19 02:22] LABS: Chol/HDL Ratio 5.46 Ratio; HDL Cholesterol 33.9 mg/dL (40.00-60.00); LDL Cholesterol,Calculated 63.3 mg/dL (0.0-131.0); VLDL Calculation 87.8 mg/dL (5.00-40.00)
[2022-09-19 02:34] LABS: LDL Cholesterol,Direct Reflex 99.2 mg/dL (0.00-129.00)
[2022-09-19 04:43] LABS: Appearance,Urine Cloudy (Clear); Bacteria,Urine Few /hpf; Bilirubin,Urine Negative (Negative); Blood,Urine Negative (Negative); Budding Yeast,Urine Few /hpf; Color,Urine Yellow; Glucose,Urine (UA) 4+ (Negative); Ketones,Urine Trace (Negative); Leukocyte Esterase,Urine Moderate (Negative); Mucus,Urine Many /hpf; Nitrite,Urine Negative (Negative); PH, Urine 6.5 (5.0-8.0); Protein,Urine 1+ (Negative); RBC,Urine 6 /hpf (0-5); Squamous Epithelial Cell,Urine 38 /hpf (0-4); Urobilinogen,Urine <2.0 mg/dL (<2.0); WBC,Urine 15 /hpf (0-5)
[2022-09-19] MEDS: diphenhydrAMINE 50 MG/ML 1 ML VIAL IVP PRN ×5 (05:28→21:27)
[2022-09-19] MEDS: KETOROLAC 15 MG/ML 1 ML VIAL IVP PRN ×2 (08:16→15:49)
[2022-09-19 08:34] LABS: Glucose,Whole Blood 151 mg/dL (70-110)
[2022-09-19] MEDS ORDERED: DICYCLOMINE 20 MG TAB PO PRN (10:34)
[2022-09-19] MEDS ORDERED: traMADol 50 MG TAB PO PRN (10:34)
[2022-09-19] MEDS ORDERED: ALBUTEROL NEBULIZED 2.5 MG/3 ML INHALATION PRN (10:34)
[2022-09-19] MEDS ORDERED: DEXTROSE 50% SYRINGE 50 ML IVP PRN ×2 (10:35)
[2022-09-19] MEDS: INSULIN DETEMIR (LEVEMIR) 100 UNIT/ML SYR SQ SCH (11:11)
[2022-09-19 12:49] LABS: Glucose,Whole Blood 143 mg/dL (70-110)
[2022-09-19] MEDS: INSULIN ASPART (NovoLOG) 100 UNIT/ML VIAL SQ SCH ×3 (12:49→22:38)
[2022-09-19] MEDS: LIPASE 5,000/PROTEASE 17,000/AMYLASE 24,000 PO SCH ×2 (14:04→17:07)
[2022-09-19] MEDS: HEPARIN SODIUM,PORCINE/PF 5,000 UNIT/0.5 ML SYRINGE SQ SCH ×2 (15:49→23:57)
[2022-09-19 16:44] LABS: Glucose,Whole Blood 105 mg/dL (70-110)
[2022-09-19] MEDS: PANTOPRAZOLE 40 MG TABLET PO SCH (19:57)
[2022-09-19] MEDS: QUEtiapine 100 MG TAB PO SCH (19:59)
[2022-09-19 20:18] LABS: Glucose,Whole Blood 90 mg/dL (70-110)
[2022-09-19] MEDS: tiZANidine 4 MG TAB PO PRN (21:46)
--- NOTE | 2022-09-19 22:44 | P.HPIM ---
History of Present Illness H&P Date: 09/19/22 Chief Complaint: Abdominal pain Patient is a 31-year-old female with a known history of diabetes type 2, asthma, history of pancreatitis, migraine headaches, endometriosis, lupus and possible gastroparesis, anxiety/depression, PTSD and prior history of smoking and vapor use presents to ER with complaints of abdominal pain. Patient states that her abdominal pain is mainly in the right side of abdomen epigastric region. Denies any radiation of the pain. Patient does have a history of chronic pancreatitis and prior history of admissions secondary to this. Pain became severe approximately 1 hour prior to arrival. Associate with nausea. No chills or vomiting. Patient follows with his physician at [facility]. Supposed to get gastric emptying study sometime this month for possible gastroparesis. Patient also has hypertriglyceridemia and is on fenofibrate and statins. Patient denies any complaints of fever or chills. No chest pain or shortness of breath. Laboratory data showed WBC 4.6 hemoglobin 12.1 platelets 250, sodium 136 potassium 4.3 chloride 100 bicarb is 25 BUN 13 and creatinine 0.77 and blood sugar is 282 and calcium 10.9 Triglycerides 439 and LDL 99.2 Serum lipase level is 1728 Urinalysis showed cloudy with 1+ protein, 4+ glucose and elevated RBCs and WBC and squamous epithelial cells. Review of Systems Constitutional: Patient denies any fever or chills . no Generalized weakness. Abdomen: Patient denied any nausea or vomiting. Patient does have right upper quadrant and epigastric abd. pain Cardiovascular: Patient denies any chest pain or short of breath no palpitations. Respiratory: patient denied any cough . no sputum production. No shortness of breath Neurologic: Patient denied any numbness or tingling headache. Musculoskeletal: Patient denies any complaints of joint swelling or deformity. Skin: Negative Psychiatric: Negative Endocrine: No heat or cold intolerance. No recent weight gain. Genitourinary: No dysuria or hematuria. All other 14 point ROS negative except the above Past Medical History Past Medical History: Asthma, Diabetes Mellitus, GERD/Reflux Additional Past Medical History / Comment(s): migraines, degenerative disk disease, endometriosis, lupus, pancreatitis, DM2- insulin, gastroparesis History of Any Multi-Drug Resistant Organisms: None Reported Past Surgical History: Cholecystectomy, Orthopedic Surgery Additional Past Surgical History / Comment(s): laparoscopc surgery for endometriosis, cyst removed from left foot, EGD, Past Anesthesia/Blood Transfusion Reactions: Previous Problems w/ Anesthesia Additional Past Anesthesia/Blood Transfusion Reaction / Comment(s): hard to wake up for 48-72 hours after laparoscopic surgery-was in hosp. for 3 days Past Psychological History: Anxiety, Depression, PTSD Smoking Status: Former smoker, Vaper Past Alcohol Use History: None Reported Past Drug Use History: None Reported - Past Family History Mother Family Medical History: Cancer Additional Family Medical History / Comment(s): Migraines, pancreatic cancer, . Father Family Medical History: Coronary Artery Disease (CAD), Hypertension Additional Family Medical History / Comment(s): ddd, alcoholism & drug use Medications and Allergies Home Medications Medication Instructions Recorded Confirmed Type Omeprazole 20 mg PO BID 11/16/21 09/18/22 History QUEtiapine FUMARATE [SEROquel XR] 600 mg PO HS 11/16/21 09/18/22 History Acetaminophen [Tylenol Extra 500 mg PO Q4H PRN 03/30/22 09/18/22 History Strength] Insulin Aspart [NovoLOG Flexpen] See Protocol SQ TID-W/MEALS PRN 03/30/22 09/18/22 History Insulin Glargine,Hum.rec.anlog 45 units SQ DAILY 03/30/22 09/18/22 History [Lantus Solostar Pen] Ondansetron Odt [Zofran ODT] 4 mg SL Q6H PRN 03/30/22 09/18/22 History tiZANidine [Zanaflex] 4 mg PO BID PRN 03/30/22 09/18/22 History Ibuprofen [Motrin] 800 mg PO Q8HR PRN #30 tab 06/07/22 09/18/22 Rx Etonogestrel [Nexplanon] 68 mg INTRADERMA DIRECTED 06/22/22 09/18/22 History traMADol HCl [Ultram] 50 mg PO Q8HR PRN 07/30/22 09/18/22 History Albuterol Nebulized [Ventolin 2.5 mg INHALATION RT-Q4H PRN 09/18/22 09/18/22 History Nebulized] Dicyclomine [Bentyl] 20 mg PO QID PRN 09/18/22 09/18/22 History Insulin Aspart [NovoLOG Flexpen] 10 units SQ TID-W/MEALS 09/18/22 09/18/22 History Lipase/Protease/Amylase [Zenpep Dr 2 cap PO TID-W/MEALS 09/18/22 09/18/22 History 5,000 Unit Capsule] Pioglitazone [Actos] 30 mg PO DAILY 09/18/22 09/18/22 History Propranolol LA [Inderal LA] 60 mg PO DAILY 09/18/22 09/18/22 History Allergies Allergy/AdvReac Type Severity Reaction Status Date / Time bee pollen Allergy Severe Anaphylaxis Verified 09/18/22 22:54 haloperidol lactate Allergy Severe QUIT Verified 09/18/22 22:54 [From Haldol] BREATHING latex Allergy Severe RASH-THROAT Verified 09/18/22 22:54 CLOSES [place] Allergy Anaphylaxis Verified 09/18/22 22:54 coconut Allergy Anaphylaxis Verified 09/18/22 22:54 pineapple Allergy Anaphylaxis Verified 09/18/22 22:54 spider venom Allergy Swelling Verified 09/18/22 22:54 Sulfa (Sulfonamide Allergy THROAT Verified 09/18/22 22:54 Antibiotics) SWELLS venom-wasp Allergy Swelling Verified 09/18/22 22:54 venom-wasp protein Allergy Swelling Verified 09/18/22 22:54 promethazine HCl AdvReac Severe Nausea & Verified 09/18/22 22:54 [From Phenergan] Vomiting amoxicillin AdvReac Nausea & Verified 09/18/22 22:54 Vomiting ANTS AdvReac Mild Anaphylaxis Uncoded 09/18/22 18:15 Physical Exam Vitals: Vital Signs Temp Pulse Pulse Resp BP BP Pulse Ox 09/19/22 08:00 98 F 106 H 14 110/70 94 L 09/19/22 05:30 100 17 112/68 98 09/19/22 05:00 97 17 114/74 94 L 09/19/22 04:30 114/67 97 09/19/22 03:00 120/82 09/19/22 02:30 107/76 94 L 09/19/22 02:00 110/64 91 L 09/19/22 01:30 95 17 105/59 98 09/19/22 01:00 85 18 106/68 100 09/19/22 00:30 86 18 121/80 99 09/18/22 22:10 100 09/18/22 21:50 94 18 116/79 100 09/18/22 21:00 101 H 17 117/60 100 09/18/22 18:13 97.8 F 127 H 20 131/86 98 Intake and Output 09/18/22 09/19/22 09/19/22 22:59 06:59 14:59 Other: Weight 107.955 kg PHYSICAL EXAMINATION: Patient is lying in the bed comfortably, no acute distress, awake alert and or iented.. HEENT: Normocephalic. Neck is supple. Pupils reactive. Nostrils clear. Oral cavity is moist. Neck reveals no JVD, carotid bruits, or thyromegaly. CHEST EXAMINATION: Trachea is central. Symmetrical expansion. Lung arroyo clear to auscultation and percussion. CARDIAC: Normal S1, S2 with no gallops. No murmurs ABDOMEN: Soft. Bowel sounds present. ruq mild tender. No organomegaly. No a bdominal bruits. Extremities: reveal no edema. No clubbing or cyanosis Neurologically awake, alert, oriented x3 with well-coordinated movements. No focal deficits noted Skin: No rash or skin lesions. Psychiatric: Coperative. Nonsuicidal, Musculoskeletal: No joint swelling or deformity. Normal range of motion. Results CBC & Chem 7: 09/18/22 21:19 09/18/22 21:19 Labs: Abnormal Lab Results - Last 24 Hours (Table) 09/18/22 09/18/22 09/19/22 Range/Units 21:19 22:26 04:25 Sodium 136 L (137-145) mmol/L Glucose 282 H (74-99) mg/dL POC Glucose (mg/dL) (70-110) mg/dL Calcium 10.9 H (8.4-10.2) mg/dL Triglycerides 439.00 H (0.00-149.00) mg/dL VLDL Cholesterol, Calc 87.80 H (5.00-40.00) mg/dL HDL Cholesterol 33.90 L (40.00-60.00) mg/dL Lipase 1728 H (23-300) U/L Urine Appearance Cloudy H (Clear) Urine Protein 1+ H (Negative) Urine Glucose (UA) 4+ H (Negative) Urine Ketones Trace H (Negative) Ur Leukocyte Esterase Moderate H (Negative) Urine RBC 6 H (0-5) /hpf Urine WBC 15 H (0-5) /hpf Ur Squamous Epith Cells 38 H (0-4) /hpf Urine Bacteria Few H (None) /hpf Urine Mucus Many H (None) /hpf Urine Yeast (Budding) Few H (None) /hpf 09/19/22 Range/Units 08:32 Sodium (137-145) mmol/L Glucose (74-99) mg/dL POC Glucose (mg/dL) 151 H (70-110) mg/dL Calcium (8.4-10.2) mg/dL Triglycerides (0.00-149.00) mg/dL VLDL Cholesterol, Calc (5.00-40.00) mg/dL HDL Cholesterol (40.00-60.00) mg/dL Lipase (23-300) U/L Urine Appearance (Clear) Urine Protein (Negative) Urine Glucose (UA) (Negative) Urine Ketones (Negative) Ur Leukocyte Esterase (Negative) Urine RBC (0-5) /hpf Urine WBC (0-5) /hpf Ur Squamous Epith Cells (0-4) /hpf Urine Bacteria (None) /hpf Urine Mucus (None) /hpf Urine Yeast (Budding) (None) /hpf Thrombosis Risk Factor Assmnt - DVT/VTE Prophylaxis DVT/VTE Prophylaxis: Pharmacologic Prophylaxis ordered Assessment and Plan Assessment: Acute on chronic pancreatitis Hypertriglyceridemia Hyperglycemia uncontrolled diabetes type 2 insulin-dependent GERD History of migraine headaches Degenerative disc disease Lupus Endometriosis Possible diabetic gastroparesis Anxiety/depression and PTSD Prior history of smoking and vapor use. DVT prophylaxis with heparin subcu Plan: Patient will be continued on IV hydration, nothing by mouth and pain management with Dilaudid. Continue with insulin sliding scale and insulin regimen and follow blood sugars closely. DuoNebs as needed. Continue with Zenpep. Follow-up closely. Time with Patient: Greater than 30
[2022-09-20] MEDS: diphenhydrAMINE 50 MG/ML 1 ML VIAL IVP PRN ×5 (02:26→21:55)
[2022-09-20] MEDS: HYDROmorphone 1 MG/ML 1 ML SYRINGE IVP PRN ×6 (04:04→21:05)
[2022-09-20 05:38] LABS: Glucose,Whole Blood 85 mg/dL (70-110)
[2022-09-20] MEDS: INSULIN ASPART (NovoLOG) 100 UNIT/ML VIAL SQ SCH ×4 (05:38→21:04)
[2022-09-20] MEDS: INSULIN DETEMIR (LEVEMIR) 100 UNIT/ML SYR SQ SCH (05:38)
[2022-09-20] MEDS: SODIUM CHLORIDE 0.9% 1,000 ML IV SCH ×4 (06:12→22:04)
[2022-09-20] MEDS: LIPASE 5,000/PROTEASE 17,000/AMYLASE 24,000 PO SCH ×3 (06:14→17:01)
[2022-09-20] MEDS: HEPARIN SODIUM,PORCINE/PF 5,000 UNIT/0.5 ML SYRINGE SQ SCH ×3 (08:42→23:36)
[2022-09-20] MEDS: PANTOPRAZOLE 40 MG TABLET PO SCH ×2 (08:42→21:04)
[2022-09-20] MEDS: PROPRANOLOL LA 60 MG CAP.SA.24H PO SCH (08:43)
[2022-09-20] MEDS: QUEtiapine 100 MG TAB PO SCH ×2 (08:44→21:04)
[2022-09-20] MEDS: tiZANidine 4 MG TAB PO PRN ×2 (10:28→21:56)
[2022-09-20 11:42] LABS: Glucose,Whole Blood 96 mg/dL (70-110)
[2022-09-20 15:39] LABS: African American GFR (CKD) >90 (>60 ml/min/1.73 sqM); Anion Gap 6 mmol/L; Blood Urea Nitrogen 6 mg/dL (7-17); Calcium 9.4 mg/dL (8.4-10.2); Carbon Dioxide 22 mmol/L (22-30); Chloride 110 mmol/L (98-107); Glucose 84 mg/dL (74-99); Lipase 160 U/L (23-300); Non-African American GFR(CKD) >90 (>60 ml/min/1.73 sqM); Potassium 3.9 mmol/L (3.5-5.1); Sodium 138 mmol/L (137-145)
[2022-09-20 15:45] LABS: Basophils % (A) 0 %; Eosinophils # (A) 0.1 k/uL (0-0.7); Eosinophils % (A) 3 %; HCT 34.8 % (34.0-46.0); Hypochromasia Slight; Lymphocytes # (A) 1.6 k/uL (1.0-4.8); Lymphocytes % (A) 54 %; MCH 29.3 pg (25.0-35.0); MCHC 31.5 g/dL (31.0-37.0); MCV 93.1 fL (80.0-100.0); Mean Platelet Volume 8.7; Monocytes # (A) 0.1 k/uL (0-1.0); Monocytes % (A) 4 %; Neutrophils # (A) 1.1 k/uL (1.3-7.7); Neutrophils % (A) 36 %; Platelet Count 198 k/uL (150-450); RBC 3.74 m/uL (3.80-5.40); RDW 15.1 % (11.5-15.5)
[2022-09-20 16:46] LABS: Glucose,Whole Blood 101 mg/dL (70-110)
[2022-09-20 20:31] LABS: Glucose,Whole Blood 197 mg/dL (70-110)
--- NOTE | 2022-09-20 23:11 | P.PN ---
Subjective Progress Note Date: 09/20/22 Patient is a 31-year-old female with a known history of diabetes type 2, asthma, history of pancreatitis, migraine headaches, endometriosis, lupus and possible gastroparesis, anxiety/depression, PTSD and prior history of smoking and vapor use presents to ER with complaints of abdominal pain. Patient states that her abdominal pain is mainly in the right side of abdomen epigastric region. Denies any radiation of the pain. Patient does have a history of chronic pancreatitis and prior history of admissions secondary to this. Pain became severe approximately 1 hour prior to arrival. Associate with nausea. No chills or vomiting. Patient follows with his physician at [facility]. Supposed to get gastric emptying study sometime this month for possible gastroparesis. Patient also has hypertriglyceridemia and is on fenofibrate and statins. Patient denies any complaints of fever or chills. No chest pain or shortness of breath. Laboratory data showed WBC 4.6 hemoglobin 12.1 platelets 250, sodium 136 potassium 4.3 chloride 100 bicarb is 25 BUN 13 and creatinine 0.77 and blood sugar is 282 and calcium 10.9 Triglycerides 439 and LDL 99.2 Serum lipase level is 1728 Urinalysis showed cloudy with 1+ protein, 4+ glucose and elevated RBCs and WBC and squamous epithelial cells. 09/20/2022 Patient is currently lying in the bed. Awake alert and oriented x3. Still complains of abdominal pain. Requesting IV pain medications [id number]. No complaints of chest pain or shortness of breath. Nausea and vomiting improved and patient would like to try oral diet. Patient has been afebrile. Laboratory data showed WBC 3.0 hemoglobin 11.0 and platelets 498 BUN 16 creatinine 0.61 and lipase level improved to 160 today. Current medications reviewed. Objective - Vital Signs Vital signs: Vital Signs Temp 97.4 F L 09/20/22 13:35 Pulse 94 09/20/22 13:35 Resp 19 09/20/22 13:35 BP 116/77 09/20/22 13:35 Pulse Ox 93 L 09/20/22 13:35 FiO2 Intake & Output 09/19/22 09/20/22 09/20/22 18:59 06:59 18:59 Intake Total 1560 180 Balance 1560 180 Weight 107.955 kg Intake: Intake, IV Titration 1560 Amount Sodium Chloride 0.9% 1, 1560 000 ml @ 130 mls/hr IV . Q7H42M [facility] Rx#:[id number] Oral 0 180 Other: # Voids 1 4 4 - Exam PHYSICAL EXAMINATION: Patient is lying in the bed comfortably, no acute distress, awake alert and oriented.. HEENT: Normocephalic. Neck is supple. Pupils reactive. Nostrils clear. Oral cavity is moist. Neck reveals no JVD, carotid bruits, or thyromegaly. CHEST EXAMINATION: Trachea is central. Symmetrical expansion. Lung arroyo clear to auscultation and percussion. CARDIAC: Normal S1, S2 with no gallops. No murmurs ABDOMEN: Soft. Bowel sounds present. ruq mild tender. No organomegaly. No abdominal bruits. Extremities: reveal no edema. No clubbing or cyanosis Neurologically awake, alert, oriented x3 with well-coordinated movements. No focal deficits noted Skin: No rash or skin lesions. Psychiatric: Coperative. Nonsuicidal, Musculoskeletal: No joint swelling or deformity. Normal range of motion. - Labs CBC & Chem 7: 09/20/22 14:39 09/20/22 14:39 Labs: Abnormal Lab Results - Last 24 Hours (Table) 09/20/22 09/20/22 Range/Units 14:39 14:39 WBC 3.0 L (3.8-10.6) k/uL RBC 3.74 L (3.80-5.40) m/uL Hgb 11.0 L (11.4-16.0) gm/dL Neutrophils # 1.1 L (1.3-7.7) k/uL Chloride 110 H (98-107) mmol/L BUN 6 L (7-17) mg/dL Assessment and Plan Assessment: Acute on chronic pancreatitis Hypertriglyceridemia Hyperglycemia uncontrolled diabetes type 2 insulin-dependent GERD History of migraine headaches Degenerative disc disease Lupus Endometriosis Possible diabetic gastroparesis Anxiety/depression and PTSD Prior history of smoking and vapor use. DVT prophylaxis with heparin subcu Plan: Patient will be continued on IV hydration, and pain management with Dilaudid. Patient will be restarted on oral diet and advance as tolerated. Continue with insulin sliding scale and insulin regimen and follow blood sugars closely. DuoNebs as needed. Continue with Zenpep. Follow-up closely. Time with Patient: Greater than 30
[2022-09-21] MEDS: HYDROmorphone 1 MG/ML 1 ML SYRINGE IVP PRN ×3 (01:04→08:07)
[2022-09-21] MEDS: diphenhydrAMINE 50 MG/ML 1 ML VIAL IVP PRN ×3 (01:09→09:17)
[2022-09-21] MEDS: SODIUM CHLORIDE 0.9% 1,000 ML IV SCH ×2 (06:02→12:13)
[2022-09-21 06:29] LABS: Glucose,Whole Blood 282 mg/dL (70-110)
[2022-09-21] MEDS: KETOROLAC 15 MG/ML 1 ML VIAL IVP PRN (07:08)
[2022-09-21] MEDS: INSULIN DETEMIR (LEVEMIR) 100 UNIT/ML SYR SQ SCH (07:09)
[2022-09-21] MEDS: INSULIN ASPART (NovoLOG) 100 UNIT/ML VIAL SQ SCH ×2 (07:09→12:06)
[2022-09-21 07:50] VITALS: BP 104/72; PULSE 80; RESP 19; TEMP 98.5
[2022-09-21] MEDS: HEPARIN SODIUM,PORCINE/PF 5,000 UNIT/0.5 ML SYRINGE SQ SCH (09:22)
[2022-09-21] MEDS: LIPASE 5,000/PROTEASE 17,000/AMYLASE 24,000 PO SCH ×2 (09:22→12:05)
[2022-09-21] MEDS: PANTOPRAZOLE 40 MG TABLET PO SCH (09:22)
[2022-09-21] MEDS: PROPRANOLOL LA 60 MG CAP.SA.24H PO SCH (09:23)
[2022-09-21] MEDS: QUEtiapine 100 MG TAB PO SCH (09:23)
[2022-09-21] MEDS: tiZANidine 4 MG TAB PO PRN (10:56)
[2022-09-21 11:02] LABS: Glucose,Whole Blood 214 mg/dL (70-110)
[2022-09-21 11:43] LABS: African American GFR (CKD) >90 (>60 ml/min/1.73 sqM); Anion Gap 5 mmol/L; Basophils % (A) 0 %; Blood Urea Nitrogen 5 mg/dL (7-17); Calcium 10.1 mg/dL (8.4-10.2); Carbon Dioxide 22 mmol/L (22-30); Chloride 110 mmol/L (98-107); Eosinophils # (A) 0.1 k/uL (0-0.7); Eosinophils % (A) 3 %; Glucose 195 mg/dL (74-99); HCT 36.7 % (34.0-46.0); HGB 12.4 gm/dL (11.4-16.0); Lymphocytes # (A) 1.7 k/uL (1.0-4.8); Lymphocytes % (A) 57 %; MCH 30.2 pg (25.0-35.0); MCHC 33.6 g/dL (31.0-37.0); MCV 89.7 fL (80.0-100.0); Mean Platelet Volume 9.5; Monocytes # (A) 0.2 k/uL (0-1.0); Monocytes % (A) 6 %; Neutrophils % (A) 32 %; Non-African American GFR(CKD) >90 (>60 ml/min/1.73 sqM); Platelet Count 150 k/uL (150-450); Potassium 4.2 mmol/L (3.5-5.1); RBC 4.09 m/uL (3.80-5.40); RDW 15.1 % (11.5-15.5); Sodium 137 mmol/L (137-145)
[2022-09-21 11:49] LABS: Neutrophils # (A) 0.9 k/uL (1.3-7.7)
--- NOTE | 2022-09-22 14:58 | P.DS ---
Providers Date of admission: 09/19/22 01:44 Expected date of discharge: 09/21/22 Attending physician: Steven Ramirez Primary care physician: Isi Carolina Hospital Course: Final diagnosis Acute on chronic pancreatitis Hypertriglyceridemia Hyperglycemia uncontrolled diabetes type 2 insulin-dependent GERD History of migraine headaches Degenerative disc disease Lupus Endometriosis Possible diabetic gastroparesis Anxiety/depression and PTSD Prior history of smoking and vapor use. DVT prophylaxis Discharge disposition Patient is being discharged in a stable condition with guarded prognosis to home. Patient will follow-up with Dr. Raciel Leblanc in the outpatient setting upon discharge. Patient is to follow-up with pain management along with GI out [facility] as scheduled. Total time taken is greater than 35 minutes. Hospital course This is a 31-year-old female who was recently admitted with abdominal pain with acute on chronic pancreatitis being closely monitored. Patient continued on bowel rest and IV hydration along with pain management showing improvement in numbers and was able to tolerate some breakfast today. Patient will be discharged and instructed to follow-up with specialist out of [facility] as she has been in the outpatient setting. Patient also instructed to follow-up with primary care provider along with pain management outpatient. Currently no reports of chest pain, shortness of breath, or palpitations. Patient is afebrile. No reports of nausea or vomiting and patient is tolerating diet. Patient will be discharged home today. Guarded prognosis and high risk for readmission as patient has had multiple ER visits for chronic comorbidities. Physical exam: Gen: This is a 31-year-old female who is awake, alert and oriented 3, well- developed, well-nourished, morbidly obese HEENT: Head is atraumatic, normocephalic. Pupils equal, round. Sclerae is anicteric. NECK: Supple. No JVD. No lymphadenopathy. No thyromegaly. LUNGS: Clear to auscultation. No wheezes or rhonchi. No intercostal retractions. HEART: Regular rate and rhythm. No murmur. ABDOMEN: Soft. Obese. Tender on palpation. Bowel sounds are present. No masses. EXTREMITIES: No pedal edema. No calf tenderness. NEUROLOGICAL: Patient is awake, alert and oriented x3. Cranial nerves 2 through 12 are grossly intact. Please refer to medication reconciliation sheet for a list of medications. The impression and plan of care has been dictated by My Luz, Nurse Practitioner as directed. Dr. Ashley MD I have performed a history and examination and MDM of this patient, discussed the same with the dictator, and agree with the dictator's assessment and plan as written ,documented as a scribe. Based on total visit time, I have performed more than 50% of the visit. Patient Condition at Discharge: Good Plan - Discharge Summary Discharge Rx Participant: Yes New Discharge Prescriptions: Continue QUEtiapine FUMARATE [SEROquel XR] 600 mg PO HS Omeprazole 20 mg PO BID Ondansetron Odt [Zofran ODT] 4 mg SL Q6H PRN PRN Reason: Nausea traMADol HCl [Ultram] 50 mg PO Q8HR PRN PRN Reason: Pain Propranolol LA [Inderal LA] 60 mg PO HS Dicyclomine [Bentyl] 20 mg PO QID PRN PRN Reason: Gi Upset Insulin Aspart [NovoLOG Flexpen] 10 units SQ TID-W/MEALS Acetaminophen [Tylenol Extra Strength] 500 mg PO Q4H PRN PRN Reason: Pain Or Fever > 100.5 Insulin Aspart [NovoLOG Flexpen] See Protocol SQ TID-W/MEALS PRN PRN Reason: HIGH BLOOD SUGAR Insulin Glargine,Hum.rec.anlog [Lantus Solostar Pen] 45 units SQ DAILY tiZANidine [Zanaflex] 4 mg PO BID PRN PRN Reason: muscle spasms Ibuprofen [Motrin] 800 mg PO Q8HR PRN #30 tab PRN Reason: Pain Etonogestrel [Nexplanon] 68 mg INTRADERMA DIRECTED Lipase/Protease/Amylase [Zenpep Dr 5,000 Unit Capsule] 2 cap PO TID-W/MEALS Pioglitazone [Actos] 30 mg PO DAILY Albuterol Nebulized [Ventolin Nebulized] 2.5 mg INHALATION RT-Q4H PRN PRN Reason: difficulty in breathing Discharge Medication List Omeprazole 20 mg PO BID 11/16/21 [History] QUEtiapine FUMARATE [SEROquel XR] 600 mg PO HS 11/16/21 [History] Acetaminophen [Tylenol Extra Strength] 500 mg PO Q4H PRN 03/30/22 [History] Insulin Aspart [NovoLOG Flexpen] See Protocol SQ TID-W/MEALS PRN 03/30/22 [History] Insulin Glargine,Hum.rec.anlog [Lantus Solostar Pen] 45 units SQ DAILY 03/30/22 [History] Ondansetron Odt [Zofran ODT] 4 mg SL Q6H PRN 03/30/22 [History] tiZANidine [Zanaflex] 4 mg PO BID PRN 03/30/22 [History] Ibuprofen [Motrin] 800 mg PO Q8HR PRN #30 tab 06/07/22 [Rx] Etonogestrel [Nexplanon] 68 mg INTRADERMA DIRECTED 06/22/22 [History] traMADol HCl [Ultram] 50 mg PO Q8HR PRN 07/30/22 [History] Albuterol Nebulized [Ventolin Nebulized] 2.5 mg INHALATION RT-Q4H PRN 09/18/22 [History] Dicyclomine [Bentyl] 20 mg PO QID PRN 09/18/22 [History] Insulin Aspart [NovoLOG Flexpen] 10 units SQ TID-W/MEALS 09/18/22 [History] Lipase/Protease/Amylase [Zenpep Dr 5,000 Unit Capsule] 2 cap PO TID-W/MEALS 09/18/22 [History] Pioglitazone [Actos] 30 mg PO DAILY 09/18/22 [History] Propranolol LA [Inderal LA] 60 mg PO HS 09/18/22 [History] Follow up Appointment(s)/Referral(s): Isi Carolina MD [Primary Care Provider] - 10/06/22 3:30 pm Patient Instructions/Handouts: Pancreatitis (DC) Activity/Diet/Wound Care/Special Instructions: Activity Limited until follow-up Continue current diet and slowly advance as tolerated Follow-up with [facility] Dr. russo Continue medications as prescribed Discharge Disposition: HOME SELF-CARE
== END 2022-09-21 12:58 | disposition home or self-care (01) ==
LOC: EC 17:58 → INTOOBSV 09-19 01:44 → 4SSUR 09-19 01:44
PROVIDERS: ADMIT Internal Medicine; ATTEND Internal Medicine
DX: K85.90 Acute pancreatitis without necrosis or infection, unspecified (principal); E11.65 Type 2 diabetes mellitus with hyperglycemia; K86.1 Other chronic pancreatitis; K21.9 Gastro-esophageal reflux disease without esophagitis; E78.1 Pure hyperglyceridemia; N80.9 Endometriosis, unspecified; G43.909 Migraine, unspecified, not intractable, without status migrainosus; M32.9 Systemic lupus erythematosus, unspecified; F32.A Depression, unspecified; F43.10 Post-traumatic stress disorder, unspecified; F41.9 Anxiety disorder, unspecified; E66.01 Morbid (severe) obesity due to excess calories; Z68.41 Body mass index [BMI] 40.0-44.9, adult; Z79.84 Long term (current) use of oral hypoglycemic drugs; Z79.4 Long term (current) use of insulin; Z79.3 Long term (current) use of hormonal contraceptives; Z79.899 Other long term (current) drug therapy; Z91.030 Bee allergy status; Z91.038 Other insect allergy status; Z91.040 Latex allergy status; Z88.0 Allergy status to penicillin; Z88.2 Allergy status to sulfonamides; Z88.8 Allergy status to other drugs, medicaments and biological substances; Z91.018 Allergy to other foods; Z87.891 Personal history of nicotine dependence; Z80.0 Family history of malignant neoplasm of digestive organs; Z82.49 Family history of ischemic heart disease and other diseases of the circulatory system; Z82.0 Family history of epilepsy and other diseases of the nervous system; Z81.1 Family history of alcohol abuse and dependence
CPT/HCPCS: 96376 ×4; 96361 ×3; 96372 ×3; 96374; 96375; 99284; 36415; 94640; 80061; 80053; 80048 ×2; 82150; 83690 ×2; 85025 ×3; 81001; 81025; 83721; 83036; G0378; J1200 ×4; J2405 ×2; J1170 ×4; J1885 ×3; J1644 ×3

== ENCOUNTER 2022-09-22 10:18 | Day surgery (SDC) | payer OTHER ==
[2022-09-18 09:54] VITALS: BMI 40.8
[~2022-09-22 10:18] MED LIST changes: +LIDOCAINE 1% (10MG/ML) FOR IV START INTRADERMA PRN
[2022-09-22 11:02] VITALS: RESP 16; TEMP 96.6
[2022-09-22 11:19] LABS: Glucose,Whole Blood 231 mg/dL (70-110)
[2022-09-22] MEDS ORDERED: MIDAZOLAM 2 MG/2 ML VIAL ONE (11:31)
[2022-09-22] MEDS ORDERED: fentaNYL (PF) 50 MCG/ML 2 ML AMP ONE (11:31)
[2022-09-22] MEDS ORDERED: ROPIVACAINE 5 MG/ML 20 ML AMPULE ONE (11:31)
[2022-09-22] MEDS ORDERED: methylPREDNISolone ACETATE 40 MG/ML 1 ML VIAL ONE (11:31)
[2022-09-22] MEDS ORDERED: IOPAMIDOL M200 10 ML VIAL ONE (11:31)
--- NOTE | 2022-09-22 11:52 | P.PCN ---
Date of Procedure: 09/22/22 Procedure(s) Performed: PREOPERATIVE DIAGNOSIS: Chronic pancreatitis with intractable abdominal pain. POSTOPERATIVE DIAGNOSIS: Chronic pancreatitis with intractable abdominal pain. PROCEDURE: attempted Splanchnic nerve block under fluoroscopy guidance (fluo roscopy images available in the audiology Department ) ANESTHESIA: Moderate sedation with Versed 4 mg and Fentanyl 100 Mcg , sedation was started at 1131,end at 1142 EBL: Minimal PROCEDURE INDICATION: The patient has a history of abdominal pain secondary to pancreatic cancer that is non responsive to more conservative treatments. PROCEDURE DESCRIPTION: The patient was seen and identified in the preoperative area. Risks, benefits, complications, and alternatives were discussed with the patient. The patient agreed to proceed with the procedure and signed the consent. IV was started, and vital signs were stable. Patient was taken to the OR and time out was completed.The patient was placed in the prone position on procedure table and a pillow was placed under the abdomen to reduce lumbar lordosis. The lumbosacral area was prepped and draped in the usual sterile fashion. Critical pause was taken. Vital signs were closely monitored during the procedure. Conscious sedation was used during the procedure to decrease patients anxiety. The procedure was performed ,. Using anterior-posterior fluoroscopy, the T11 spinous process and vertebral body were identified. Then, the fluoroscope was turned obliquely until the transverse process of T11 vertebra was totally behind the T11 vertebral body. Skin was then marked and infiltrated with bupivacaine 0.5 % 2 ml subcutaneously with a 25-guage needle at the level of the T11 vertebral body. Subsequently, a 22-guage 5-inch spinal needles was inserted and advanced toward anterior side of the T11 vertebral body under oblique fluoroscopic guidance and while keeping a ``tunnel view of the needle. In the middle of the procedure patient was complaining of increased pain, she asked me to stop the procedure, we found that the IV that was placed in the right ankle area(saphenous vein was infiltrated ), and I offered the patient the option of prose continue the procedure without sedation, versus stopping the procedure patient requested to stop the procedure for this reason the procedure was aborted, patient will be seen in the pain clinic in a few weeks. COMPLICATIONS: None DISPOSITION / PLANS: The patient was placed in a supine position and transferred to the recovery area in a stable condition for observation and was discharged from the recovery room after meeting discharge criteria.Home dischar ge instructions given to the patient by the staff.The patient was reexamined prior to discharge. We will schedule a neurolytic block in one week if patient has more than 50% pain relief from this block.
[2022-09-22] MEDS ORDERED: HYDROcodone/APAP 7.5-325MG 1 EACH TAB ONE (12:16)
[2022-09-22] MEDS ORDERED: HYDROcodone/APAP 7.5-325MG 1 EACH TAB PO ONE (12:17)
[2022-09-22 12:19] VITALS: PULSE 96
[2022-09-22 12:31] VITALS: BP 102/70
--- NOTE | 2022-09-22 12:50 | FL ---
EXAMINATION TYPE: FL guided pain mgmt statistic DATE OF EXAM: 09/22/2022 HISTORY: Fluoroscopy time Total dose area product (DAP) in uGy*m?, mGy*cm? (or similar): 0.25555 IMPRESSION: 1. Fluoroscopy time.
== END 2022-09-22 12:39 | disposition home or self-care (01) ==
LOC: ORPAIN 10:18
PROVIDERS: ATTEND Specialist
DX: K86.1 Other chronic pancreatitis (principal); Z53.8 Procedure and treatment not carried out for other reasons
CPT/HCPCS: 81025; 64530; 99152; J2250; J1030; J3010; Q9966; J2795

== ENCOUNTER 2022-09-23 11:52 | Emergency (ER) | payer OTHER ==
[2022-09-23 12:10] VITALS: RESP 18
[2022-09-23] MEDS ORDERED: LIDOCAINE 5% PATCH TOPICAL STA (12:20)
[2022-09-23] MEDS ORDERED: KETOROLAC 15 MG/ML 1 ML VIAL IM STA (12:20)
--- NOTE | 2022-09-23 13:07 | ED ---
Back Pain HPI - General Chief Complaint: Back Pain/Injury Stated Complaint: Back and Right Plank Pain Time Seen by Provider: 09/23/22 12:13 Source: patient - History of Present Illness Initial Comments: Patient is a 31-year-old female who presents to the emergency department for back pain. It started today in her middle back. Patient denies injury. Patient has history of chronic abdominal pain states yesterday she was at the clinic for nerve block but her IV blew therefore she did not give pain medication. She has history of chronic back pain states this feels similar. Pain is worse with movement. She took a muscle relaxer and tramadol without relief. There is no numbness and tingling. No leg weakness. No saddle anesthesia. No loss of bowel or bladder function. She denies fever, chills, abdominal pain, nausea, vomiting, burning with urination. - Related Data Home Medications Medication Instructions Recorded Confirmed Omeprazole 20 mg PO BID 11/16/21 09/22/22 QUEtiapine FUMARATE [SEROquel XR] 600 mg PO HS 11/16/21 09/22/22 Acetaminophen [Tylenol Extra 500 mg PO Q4H PRN 03/30/22 09/22/22 Strength] Insulin Aspart [NovoLOG Flexpen] See Protocol SQ TID-W/MEALS PRN 03/30/22 09/22/22 Insulin Glargine,Hum.rec.anlog 45 units SQ DAILY 03/30/22 09/22/22 [Lantus Solostar Pen] Ondansetron Odt [Zofran ODT] 4 mg SL Q6H PRN 03/30/22 09/22/22 tiZANidine [Zanaflex] 4 mg PO BID PRN 03/30/22 09/22/22 Etonogestrel [Nexplanon] 68 mg INTRADERMA DIRECTED 06/22/22 09/22/22 traMADol HCl [Ultram] 50 mg PO Q8HR PRN 07/30/22 09/22/22 Albuterol Nebulized [Ventolin 2.5 mg INHALATION RT-Q4H PRN 09/18/22 09/22/22 Nebulized] Dicyclomine [Bentyl] 20 mg PO QID PRN 09/18/22 09/22/22 Insulin Aspart [NovoLOG Flexpen] 10 units SQ TID-W/MEALS 09/18/22 09/22/22 Lipase/Protease/Amylase [Zenpep Dr 2 cap PO TID-W/MEALS 09/18/22 09/22/22 5,000 Unit Capsule] Pioglitazone [Actos] 30 mg PO DAILY 09/18/22 09/22/22 Propranolol LA [Inderal LA] 60 mg PO HS 09/18/22 09/22/22 Previous Rx's Medication Instructions Recorded Ibuprofen [Motrin] 800 mg PO Q8HR PRN #30 tab 06/07/22 Ibuprofen [Motrin] 800 mg PO Q8HR PRN #30 tab 09/23/22 Lidocaine 5% Patch [Lidoderm 5% 1 patch TOPICAL DAILY PRN #7 patch 09/23/22 Patch] Allergies Allergy/AdvReac Type Severity Reaction Status Date / Time bee pollen Allergy Severe Anaphylaxis Verified 09/22/22 10:44 haloperidol lactate Allergy Severe QUIT Verified 09/22/22 10:44 [From Haldol] BREATHING latex Allergy Severe RASH-THROAT Verified 09/22/22 10:44 CLOSES murrieta Allergy Anaphylaxis Verified 09/22/22 10:44 coconut Allergy Anaphylaxis Verified 09/22/22 10:44 pineapple Allergy Anaphylaxis Verified 09/22/22 10:44 spider venom Allergy Swelling Verified 09/22/22 10:44 Sulfa (Sulfonamide Allergy THROAT Verified 09/22/22 10:44 Antibiotics) SWELLS venom-wasp Allergy Swelling Verified 09/22/22 10:44 venom-wasp protein Allergy Swelling Verified 09/22/22 10:44 promethazine HCl AdvReac Severe Nausea & Verified 09/22/22 10:44 [From Phenergan] Vomiting amoxicillin AdvReac Nausea & Verified 09/22/22 10:44 Vomiting ANTS AdvReac Mild Anaphylaxis Uncoded 09/22/22 10:44 Review of Systems ROS Statement: Those systems with pertinent positive or pertinent negative responses have been documented in the HPI. ROS Other: All systems not noted in ROS Statement are negative. Past Medical History Past Medical History: Asthma, Diabetes Mellitus, GERD/Reflux Additional Past Medical History / Comment(s): migraines, degenerative disk disease, endometriosis, lupus, pancreatitis, DM2- insulin, gastroparesis History of Any Multi-Drug Resistant Organisms: None Reported Past Surgical History: Cholecystectomy, Orthopedic Surgery Additional Past Surgical History / Comment(s): laparoscopc surgery for endometriosis, cyst removed from left foot, EGD, Past Anesthesia/Blood Transfusion Reactions: Previous Problems w/ Anesthesia Additional Past Anesthesia/Blood Transfusion Reaction / Comment(s): hard to wake up for 48-72 hours after laparoscopic surgery-was in hosp. for 3 days Past Psychological History: Anxiety, Depression, PTSD Smoking Status: Former smoker Past Alcohol Use History: None Reported Past Drug Use History: None Reported - Past Family History Mother Family Medical History: Cancer Additional Family Medical History / Comment(s): Migraines, pancreatic cancer, . Father Family Medical History: Coronary Artery Disease (CAD), Hypertension Additional Family Medical History / Comment(s): ddd, alcoholism & drug use General Exam General appearance: alert, anxious Head exam: Present: atraumatic, normocephalic, normal inspection Respiratory exam: Present: normal lung sounds bilaterally. Absent: respiratory distress, wheezes, rales, rhonchi, stridor Cardiovascular Exam: Present: regular rate, normal rhythm, normal heart sounds. Absent: systolic murmur, diastolic murmur, rubs, gallop, clicks GI/Abdominal exam: Present: soft, normal bowel sounds. Absent: distended, tenderness, guarding, rebound, rigid Back exam: Present: normal inspection, full ROM, paraspinal tenderness (thoracic ). Absent: CVA tenderness (R), CVA tenderness (L), vertebral tenderness Neurological exam: Present: alert, oriented X3, CN II-XII intact Expanded Sensory exam: Upper Extremity Light Touch: Normal, Lower Extremity Light Touch: Normal Motor strength exam: RUE: 5, LUE: 5, RLE: 5, LLE: 5 Psychiatric exam: Present: normal affect, anxious. Absent: normal mood Skin exam: Present: warm, dry, intact, normal color. Absent: rash Course Vital Signs 09/23/22 09/23/22 12:00 13:26 Temperature 98 F 97.5 F L Pulse Rate 91 87 Respiratory 18 18 Rate Blood Pressure 105/75 113/83 O2 Sat by Pulse 100 99 Oximetry Medical Decision Making - Medical Decision Making Was pt. sent in by a medical professional or institution (, PA, CNMT, urgent care, hospital, or fpc...) When possible be specific @ -No Did you speak to anyone other than the patient for history (EMS, parent, family, police, friend...)? What history was obtained from this source @ -No Did you review nursing and triage notes (agree or disagree)? Why? @ -I reviewed and agree with nursing and triage notes Were old charts reviewed (outside hosp., previous admission, EMS record, old EKG, old radiological studies, urgent care reports/EKG's, fpc records)? Report findings @ -No old charts were reviewed Differential Diagnosis (chest pain, altered mental status, abdominal pain women, abdominal pain men, vaginal bleeding, weakness, fever, dyspnea, syncope, headache, dizziness, GI bleed, back pain, seizure, CVA, palpatations, mental health)? @ -Differential Back Pain: Strain, zoster, cauda equina syndrome, epidural abscess, vertebral osteomyelitis, discitis, fracture, subluxation, disc herniation, DJD, spinal stenosis, dissection, AAA, pancreatitis, peptic ulcer disease, pyelonephritis, kidney stone, this is not meant to be an all-inclusive list. EKG interpreted by me (3pts min.). @ -As above X-rays interpreted by me (1pt min.). @ -None done CT interpreted by me (1pt min.). @ -None done U/S interpreted by me (1pt. min.). @ -None done What testing was considered but not performed or refused? (CT, X-rays, U/S, la bs)? Why? @ -Considered imaging of the spine however patient does not have midline tenderness. No neurological deficit What meds were considered but not given or refused? Why? @ -None Did you discuss the management of the patient with other professionals (professionals i.e. , PA, CNMT, lab, RT, psych nurse, director social, flat locker, teacher, affirmative action officer, machine adjuster leader case trim)? Give summary @ -No Was smoking cessation discussed for >3mins.? @ -No Was critical care preformed (if so, how long)? @ -No Were there social determinants of health that impacted care today? How? (Homelessness, low income, unemployed, alcoholism, drug addiction, transportation, low edu. Level, literacy, decrease access to med. care, fci, rehab)? @ -No Was there de-escalation of care discussed even if they declined (Discuss DNR or withdrawal of care, Hospice)? DNR status @ -No What co-morbidities impacted this encounter? (DM, HTN, Smoking, COPD, CAD, Canc er, CVA, ARF, Chemo, Hep., AIDS, mental health diagnosis, sleep apnea, morbid obesity)? @Chronic back pain Was patient admitted / discharged? Hospital course, mention meds given and route, prescriptions, significant lab abnormalities, going to OR and other pertinent info. @ -Patient presenting with back pain. Clinical presentation consistent with mechanical back pain. No neurological deficit on exam. Pain treated in the emergency department with improvement of symptoms. Patient discharged in stable medical condition Undiagnosed new problem with uncertain prognosis? @ -No Drug Therapy requiring intensive monitoring for toxicity (Heparin, Nitro, Insulin, Cardizem)? @ -No Were any procedures done? @ -No Diagnosis/symptom? @ -Mechanical back pain Acute, or Chronic, or Acute on Chronic? @ -Acute Uncomplicated (without systemic symptoms) or Complicated (systemic symptoms)? @ -Uncomplicated Side effects of treatment? @ -No Exacerbation, Progression, or Severe Exacerbation? @ -No Poses a threat to life or bodily function? How? (Chest pain, [place], [place], pneumonia, PE, COPD, DKA, ARF, appy, cholecystitis, CVA, Diverticulitis, Homicidal, Suicidal, threat to staff... and all critical care pts) @ -No Dr. Rojas is my attending Disposition Clinical Impression: Mechanical back pain Disposition: HOME SELF-CARE Condition: Good Instructions (If sedation given, give patient instructions): Acute Low Back Pain (ED) Additional Instructions: Take medication as directed. Please follow-up with your primary care provider in 1-2 days. Return to the emergency department if you experience new, concerning, or worsening symptoms. Prescriptions: Lidocaine 5% Patch [Lidoderm 5% Patch] 1 patch TOPICAL DAILY PRN #7 patch PRN Reason: Pain Ibuprofen [Motrin] 800 mg PO Q8HR PRN #30 tab PRN Reason: Pain Is patient prescribed a controlled substance at d/c from ED?: No Referrals: Isi Carolina MD [Primary Care Provider] - 1-2 days
[2022-09-23 13:27] VITALS: BP 113/83; PULSE 87; TEMP 97.5
== END 2022-09-23 13:26 | disposition home or self-care (01) ==
LOC: EC 11:52
DX: M54.6 Pain in thoracic spine (principal); J45.909 Unspecified asthma, uncomplicated; E11.43 Type 2 diabetes mellitus with diabetic autonomic (poly)neuropathy; K31.84 Gastroparesis; K21.9 Gastro-esophageal reflux disease without esophagitis; F41.9 Anxiety disorder, unspecified; F32.A Depression, unspecified; Z87.891 Personal history of nicotine dependence; Z79.4 Long term (current) use of insulin; Z79.84 Long term (current) use of oral hypoglycemic drugs; Z79.899 Other long term (current) drug therapy; Z91.030 Bee allergy status; Z91.040 Latex allergy status; Z91.018 Allergy to other foods; Z88.2 Allergy status to sulfonamides; Z88.0 Allergy status to penicillin; Z88.8 Allergy status to other drugs, medicaments and biological substances; Z88.1 Allergy status to other antibiotic agents
CPT/HCPCS: 99283 ×2; 96372 ×2; J1885

== ENCOUNTER 2022-09-26 12:45 | Emergency (ER) | payer BC, OTHER ==
[2022-09-26] MEDS ORDERED: KETOROLAC 15 MG/ML 1 ML VIAL IM STA (15:22)
--- NOTE | 2022-09-26 15:24 | ED ---
Abdominal Pain HPI - General Chief Complaint: Abdominal Pain Stated Complaint: abd pain Source: patient Mode of arrival: ambulatory Limitations: no limitations - History of Present Illness Initial Comments: 31-year-old female with past medical history significant for chronic pancreatitis presents to the ED for chief complaint of abdominal pain. States pain is consistent with history of chronic pancreatitis however states that it worsened over the past 2 days. Associated nausea no vomiting. No diarrhea no constipation. So notes some blood in her bowel movement this morning. Denies chest pain or shortness breath. No other complaints. - Related Data Home Medications Medication Instructions Recorded Confirmed Omeprazole 20 mg PO BID 11/16/21 09/22/22 QUEtiapine FUMARATE [SEROquel XR] 600 mg PO HS 11/16/21 09/22/22 Acetaminophen [Tylenol Extra 500 mg PO Q4H PRN 03/30/22 09/22/22 Strength] Insulin Aspart [NovoLOG Flexpen] See Protocol SQ TID-W/MEALS PRN 03/30/22 09/22/22 Insulin Glargine,Hum.rec.anlog 45 units SQ DAILY 03/30/22 09/22/22 [Lantus Solostar Pen] Ondansetron Odt [Zofran ODT] 4 mg SL Q6H PRN 03/30/22 09/22/22 tiZANidine [Zanaflex] 4 mg PO BID PRN 03/30/22 09/22/22 Etonogestrel [Nexplanon] 68 mg INTRADERMA DIRECTED 06/22/22 09/22/22 traMADol HCl [Ultram] 50 mg PO Q8HR PRN 07/30/22 09/22/22 Albuterol Nebulized [Ventolin 2.5 mg INHALATION RT-Q4H PRN 09/18/22 09/22/22 Nebulized] Dicyclomine [Bentyl] 20 mg PO QID PRN 09/18/22 09/22/22 Insulin Aspart [NovoLOG Flexpen] 10 units SQ TID-W/MEALS 09/18/22 09/22/22 Lipase/Protease/Amylase [Zenpep Dr 2 cap PO TID-W/MEALS 09/18/22 09/22/22 5,000 Unit Capsule] Pioglitazone [Actos] 30 mg PO DAILY 09/18/22 09/22/22 Propranolol LA [Inderal LA] 60 mg PO HS 09/18/22 09/22/22 Previous Rx's Medication Instructions Recorded Ibuprofen [Motrin] 800 mg PO Q8HR PRN #30 tab 06/07/22 Ibuprofen [Motrin] 800 mg PO Q8HR PRN #30 tab 09/23/22 Lidocaine 5% Patch [Lidoderm 5% 1 patch TOPICAL DAILY PRN #7 patch 09/23/22 Patch] Allergies Allergy/AdvReac Type Severity Reaction Status Date / Time bee pollen Allergy Severe Anaphylaxis Verified 09/22/22 10:44 haloperidol lactate Allergy Severe QUIT Verified 09/22/22 10:44 [From Haldol] BREATHING latex Allergy Severe RASH-THROAT Verified 09/22/22 10:44 CLOSES [place] Allergy Anaphylaxis Verified 09/22/22 10:44 coconut Allergy Anaphylaxis Verified 09/22/22 10:44 pineapple Allergy Anaphylaxis Verified 09/22/22 10:44 spider venom Allergy Swelling Verified 09/22/22 10:44 Sulfa (Sulfonamide Allergy THROAT Verified 09/22/22 10:44 Antibiotics) SWELLS venom-wasp Allergy Swelling Verified 09/22/22 10:44 venom-wasp protein Allergy Swelling Verified 09/22/22 10:44 promethazine HCl AdvReac Severe Nausea & Verified 09/22/22 10:44 [From Phenergan] Vomiting amoxicillin AdvReac Nausea & Verified 09/22/22 10:44 Vomiting ANTS AdvReac Mild Anaphylaxis Uncoded 09/22/22 10:44 Review of Systems ROS Statement: Those systems with pertinent positive or pertinent negative responses have been documented in the HPI. ROS Other: All systems not noted in ROS Statement are negative. Past Medical History Past Medical History: Asthma, Diabetes Mellitus, GERD/Reflux Additional Past Medical History / Comment(s): migraines, degenerative disk disease, endometriosis, lupus, pancreatitis, DM2- insulin, gastroparesis History of Any Multi-Drug Resistant Organisms: None Reported Past Surgical History: Cholecystectomy, Orthopedic Surgery Additional Past Surgical History / Comment(s): laparoscopc surgery for endometriosis, cyst removed from left foot, EGD, Past Anesthesia/Blood Transfusion Reactions: Previous Problems w/ Anesthesia Additional Past Anesthesia/Blood Transfusion Reaction / Comment(s): hard to wake up for 48-72 hours after laparoscopic surgery-was in hosp. for 3 days Past Psychological History: Anxiety, Depression, PTSD Smoking Status: Former smoker Past Alcohol Use History: None Reported Past Drug Use History: None Reported - Past Family History Mother Family Medical History: Cancer Additional Family Medical History / Comment(s): Migraines, pancreatic cancer, . Father Family Medical History: Coronary Artery Disease (CAD), Hypertension Additional Family Medical History / Comment(s): ddd, alcoholism & drug use General Exam Limitations: no limitations General appearance: alert Head exam: Present: atraumatic, normocephalic Eye exam: Present: normal appearance ENT exam: Present: mucous membranes moist Respiratory exam: Present: normal lung sounds bilaterally Cardiovascular Exam: Present: regular rate, normal rhythm GI/Abdominal exam: Present: soft (Tenderness to palpation in the epigastric and right upper quadrant no rebound guarding or rigidity.) Neurological exam: Present: alert, oriented X3 Skin exam: Present: warm, dry Course Vital Signs 09/26/22 12:46 Temperature 98.4 F Pulse Rate 84 Respiratory 136 H Rate O2 Sat by Pulse 99 Oximetry Medical Decision Making - Medical Decision Making Was pt. sent in by a medical professional or institution (, PA, SUPERVISOR AREA, urgent care, hospital, or senior care...) When possible be specific @ -No Did you speak to anyone other than the patient for history (EMS, parent, family, police, friend...)? What history was obtained from this source @ -No Did you review nursing and triage notes (agree or disagree)? Why? @ -I reviewed and agree with nursing and triage notes Were old charts reviewed (outside hosp., previous admission, EMS record, old EKG, old radiological studies, urgent care reports/EKG's, senior care records)? Report findings @ -Charts reviewed showing recent workup 3 days ago and negative KUB on 09/13/22 history of chronic pancreatitis. Differential Diagnosis (chest pain, altered mental status, abdominal pain women, abdominal pain men, vaginal bleeding, weakness, fever, dyspnea, syncope, headache, dizziness, GI bleed, back pain, seizure, CVA, palpatations, mental health, musculoskeletal)? @ -Differential Abdominal Pain Women: Appendicitis, Cholecystitis, diverticulosis, ischemic bowel, pancreatitis, hepatitis, UTI, gastroenteritis, AAA, incarcerated hernia, bowel obstruction, constipation, inflammatory bowel, hepatitis, peptic ulcer disease, splenic infarction, perforated viscus, vulvitis, ovarian torsion, PID, kidney stone, placenta abruption, this is not meant to be an all-inclusive list EKG interpreted by me (3pts min.). @ -None X-rays interpreted by me (1pt min.). @ -None done CT interpreted by me (1pt min.). @ -None done U/S interpreted by me (1pt. min.). @ -None done What testing was considered but not performed or refused? (CT, X-rays, U/S, labs)? Why? @ -Laboratory workup and imaging studies were considered however patient had recent laboratory studies 3 days ago. Additionally patient states symptoms today are consistent with history of chronic pancreatitis. Rectal exam declined by patient What meds were considered but not given or refused? Why? @ -None Did you discuss the management of the patient with other professionals (professionals i.e. , PA, SUPERVISOR AREA, lab, RT, psych nurse, drug abuse social worker, council on aging director, teacher, enforcement safety officer, case manager specialist)? Give summary @ -No Was smoking cessation discussed for >3mins.? @ -No Was critical care preformed (if so, how long)? @ -No Were there social determinants of health that impacted care today? How? (Homelessness, low income, unemployed, alcoholism, drug addiction, transportation, low edu. Level, literacy, decrease access to med. care, detention, rehab)? @ -No Was there de-escalation of care discussed even if they declined (Discuss DNR or withdrawal of care, Hospice)? DNR status @ -No What co-morbidities impacted this encounter? (DM, HTN, Smoking, COPD, CAD, Cancer, CVA, ARF, Chemo, Hep., AIDS, mental health diagnosis, sleep apnea, morbid obesity)? @ -None Was patient admitted / discharged? Hospital course, mention meds given and route, prescriptions, significant lab abnormalities, going to OR and other pertinent info. @ -Discharged. Patient had improvement of symptoms with Zofran, Toradol, Benadryl. Pt discharged in stable condition. Undiagnosed new problem with uncertain prognosis? @ -No Drug Therapy requiring intensive monitoring for toxicity (Heparin, Nitro, Insulin, Cardizem)? @ -No Were any procedures done? @ -No Diagnosis/symptom? @ -Abdominal pain, chronic pancreatitis. Acute, or Chronic, or Acute on Chronic? @ -Acute on chronic Uncomplicated (without systemic symptoms) or Complicated (systemic symptoms)? @ -Uncomplicated Side effects of treatment? @ -No Exacerbation, Progression, or Severe Exacerbation? @ -No Poses a threat to life or bodily function? How? (Chest pain, [place], [place], pneumonia, PE, COPD, DKA, ARF, appy, cholecystitis, CVA, Diverticulitis, Homicidal, Suicidal, threat to staff... and all critical care pts) @ -No Disposition Clinical Impression: Chronic pancreatitis Disposition: HOME SELF-CARE Condition: Good Additional Instructions: Please return to the Emergency Department if symptoms worsen or any other concerns. Is patient prescribed a controlled substance at d/c from ED?: No Referrals: Isi Carolina MD [Primary Care Provider] - 1-2 days Time of Disposition: 17:44
[2022-09-26] MEDS ORDERED: ONDANSETRON 4 MG/2 ML VIAL IM STA (15:26)
[2022-09-26] MEDS ORDERED: diphenhydrAMINE 50 MG/ML 1 ML VIAL IM STA (16:47)
[2022-09-26 18:04] VITALS: BP 138/89; PULSE 94; RESP 20; TEMP 98.1
== END 2022-09-26 18:03 | disposition home or self-care (01) ==
LOC: EC 12:45
DX: K86.1 Other chronic pancreatitis (principal); J45.909 Unspecified asthma, uncomplicated; E11.9 Type 2 diabetes mellitus without complications; K21.9 Gastro-esophageal reflux disease without esophagitis; F41.9 Anxiety disorder, unspecified; F32.A Depression, unspecified; Z87.891 Personal history of nicotine dependence; Z79.4 Long term (current) use of insulin; Z79.84 Long term (current) use of oral hypoglycemic drugs; Z79.899 Other long term (current) drug therapy; Z88.0 Allergy status to penicillin; Z88.1 Allergy status to other antibiotic agents; Z88.2 Allergy status to sulfonamides; Z88.8 Allergy status to other drugs, medicaments and biological substances; Z91.030 Bee allergy status; Z91.040 Latex allergy status
CPT/HCPCS: 99284; 96372 ×3; J1200; J2405; J1885

== ENCOUNTER 2022-10-02 17:30 | Emergency (ER) | payer OTHER ==
[2022-10-02 17:57] VITALS: TEMP 97.9
[2022-10-02] MEDS ORDERED: METOCLOPRAMIDE 5 MG/ML 2 ML VIAL IM STA (19:12)
[2022-10-02] MEDS ORDERED: KETOROLAC 15 MG/ML 1 ML VIAL IM STA (19:12)
[2022-10-02] MEDS ORDERED: diphenhydrAMINE 50 MG/ML 1 ML VIAL IM STA (19:12)
--- NOTE | 2022-10-02 19:15 | ED ---
General Adult HPI - General Chief complaint: Abdominal Pain Stated complaint: abd pain,headache Time Seen by Provider: 10/02/22 18:04 Source: patient, RN notes reviewed Mode of arrival: ambulatory Limitations: no limitations - History of Present Illness Initial comments: This is a pleasant 31-year-old female with a history of chronic recurrent migraine headaches and chronic abdominal pain. She presents to the emergency department today stating that she has had a migraine headache for 2 days. Insidious onset, throbbing, associated with photosensitivity. Consistent with previous migraine headaches. Patient states she did have some nausea and vom iting yesterday. Has not vomited today. Patient also complaining of abdominal pain which she relates to her pancreatitis. Pain in the epigastric area and left upper quadrant. This is also chronic for the patient. No changes in bowel movements. Patient denies any fever or chills. No hematemesis or coffee-ground emesis. No melena or hematochezia. No problems with urination. No flank pain. No chest pain or shortness of breath. Patient states that she took Fioricet as well as ibuprofen earlier today. This did not have any significant effect on the headache. Patient states that they usually give her ketorolac, metoclopramide, and diphenhydramine in the ER. - Related Data Home Medications Medication Instructions Recorded Confirmed Omeprazole 20 mg PO BID 11/16/21 09/22/22 QUEtiapine FUMARATE [SEROquel XR] 600 mg PO HS 11/16/21 09/22/22 Acetaminophen [Tylenol Extra 500 mg PO Q4H PRN 03/30/22 09/22/22 Strength] Insulin Aspart [NovoLOG Flexpen] See Protocol SQ TID-W/MEALS PRN 03/30/22 09/22/22 Insulin Glargine,Hum.rec.anlog 45 units SQ DAILY 03/30/22 09/22/22 [Lantus Solostar Pen] Ondansetron Odt [Zofran ODT] 4 mg SL Q6H PRN 03/30/22 09/22/22 tiZANidine [Zanaflex] 4 mg PO BID PRN 03/30/22 09/22/22 Etonogestrel [Nexplanon] 68 mg INTRADERMA DIRECTED 06/22/22 09/22/22 traMADol HCl [Ultram] 50 mg PO Q8HR PRN 07/30/22 09/22/22 Albuterol Nebulized [Ventolin 2.5 mg INHALATION RT-Q4H PRN 09/18/22 09/22/22 Nebulized] Dicyclomine [Bentyl] 20 mg PO QID PRN 09/18/22 09/22/22 Insulin Aspart [NovoLOG Flexpen] 10 units SQ TID-W/MEALS 09/18/22 09/22/22 Lipase/Protease/Amylase [Zenpep Dr 2 cap PO TID-W/MEALS 09/18/22 09/22/22 5,000 Unit Capsule] Pioglitazone [Actos] 30 mg PO DAILY 09/18/22 09/22/22 Propranolol LA [Inderal LA] 60 mg PO HS 09/18/22 09/22/22 Previous Rx's Medication Instructions Recorded Ibuprofen [Motrin] 800 mg PO Q8HR PRN #30 tab 06/07/22 Ibuprofen [Motrin] 800 mg PO Q8HR PRN #30 tab 09/23/22 Lidocaine 5% Patch [Lidoderm 5% 1 patch TOPICAL DAILY PRN #7 patch 09/23/22 Patch] Allergies Allergy/AdvReac Type Severity Reaction Status Date / Time bee pollen Allergy Severe Anaphylaxis Verified 10/02/22 17:57 haloperidol lactate Allergy Severe QUIT Verified 10/02/22 17:57 [From Haldol] BREATHING latex Allergy Severe RASH-THROAT Verified 10/02/22 17:57 CLOSES [place] Allergy Anaphylaxis Verified 10/02/22 17:57 coconut Allergy Anaphylaxis Verified 10/02/22 17:57 pineapple Allergy Anaphylaxis Verified 10/02/22 17:57 spider venom Allergy Swelling Verified 10/02/22 17:57 Sulfa (Sulfonamide Allergy THROAT Verified 10/02/22 17:57 Antibiotics) SWELLS venom-wasp Allergy Swelling Verified 10/02/22 17:57 venom-wasp protein Allergy Swelling Verified 10/02/22 17:57 promethazine HCl AdvReac Severe Nausea & Verified 10/02/22 17:57 [From Phenergan] Vomiting amoxicillin AdvReac Nausea & Verified 10/02/22 17:57 Vomiting ANTS AdvReac Mild Anaphylaxis Uncoded 10/02/22 17:57 Review of Systems ROS Statement: Those systems with pertinent positive or pertinent negative responses have been documented in the HPI. ROS Other: All systems not noted in ROS Statement are negative. Past Medical History Past Medical History: Asthma, Diabetes Mellitus, GERD/Reflux Additional Past Medical History / Comment(s): migraines, degenerative disk disease, endometriosis, lupus, pancreatitis, DM2- insulin, gastroparesis History of Any Multi-Drug Resistant Organisms: None Reported Past Surgical History: Cholecystectomy, Orthopedic Surgery Additional Past Surgical History / Comment(s): laparoscopc surgery for endometriosis, cyst removed from left foot, EGD, Past Anesthesia/Blood Transfusion Reactions: Previous Problems w/ Anesthesia Additional Past Anesthesia/Blood Transfusion Reaction / Comment(s): hard to wake up for 48-72 hours after laparoscopic surgery-was in hosp. for 3 days Past Psychological History: Anxiety, Depression, PTSD Smoking Status: Former smoker Past Alcohol Use History: None Reported Past Drug Use History: None Reported - Past Family History Mother Family Medical History: Cancer Additional Family Medical History / Comment(s): Migraines, pancreatic cancer, . Father Family Medical History: Coronary Artery Disease (CAD), Hypertension Additional Family Medical History / Comment(s): ddd, alcoholism & drug use General Exam - General Exam Comments Initial Comments: Patient does not appear to be ill or toxic. In distress secondary to headache. Patient complaining of photosensitivity and slight and subtle right ascending 1 and 2. Cranial nerves II through XII are intact. Patient alert and oriented 4. Limitations: no limitations General appearance: in distress, obese Head exam: Present: atraumatic, normocephalic, normal inspection Eye exam: Present: normal appearance, PERRL, EOMI. Absent: scleral icterus, conjunctival injection, periorbital swelling ENT exam: Present: normal exam, normal oropharynx, mucous membranes dry, mucous membranes moist, normal external ear exam Neck exam: Present: normal inspection, full ROM. Absent: tenderness, meningismus, lymphadenopathy Respiratory exam: Present: normal lung sounds bilaterally. Absent: respiratory distress, wheezes, rales, rhonchi, stridor Cardiovascular Exam: Present: regular rate, normal rhythm, normal heart sounds. Absent: systolic murmur, diastolic murmur, rubs, gallop, clicks GI/Abdominal exam: Present: soft, tenderness (Across upper abdomen and left upper quadrant area. Soft, no rebound or percussion tenderness.), guarding (Voluntary), normal bowel sounds. Absent: distended, rebound, rigid, organomegaly, mass, bruit, pulsatile mass Extremities exam: Present: normal inspection, full ROM, normal capillary refill. Absent: tenderness, pedal edema, joint swelling, calf tenderness Back exam: Present: normal inspection Neurological exam: Present: alert, oriented X3, CN II-XII intact Psychiatric exam: Present: normal affect, normal mood Skin exam: Present: warm, dry, intact, normal color. Absent: rash Course Vital Signs 10/02/22 17:55 Temperature 97.9 F Pulse Rate 85 Respiratory 20 Rate Blood Pressure 124/88 O2 Sat by Pulse 99 Oximetry - Reevaluation(s) Reevaluation #1: 10/02/22 21:25 Patient reevaluated, somewhat improved after medication. It has not been that long since the dosing. We'll plan for reevaluation. Hemodynamically stable. Medical Decision Making - Medical Decision Making Was pt. sent in by a medical professional or institution? @ -[no] Did you speak to anyone other than the patient for history? @ -Patient only] Did you review nursing and triage notes? @ -agree Were old charts reviewed? @ -no Differential Diagnosis? @ -Pancreatitis, acute exacerbation of chronic pain, chronic abdominal pain, migraine versus tension headache. Given the insidious onset this is not appear to be a dangerous headache such as subarachnoid hemorrhage, not consistent with meningitis. Patient has no nuchal rigidity. Patient has no neurologic impairment. Unlikely be other intracranial pathology. Consistent with previous headaches. Patient does have some abdominal tenderness which is not out of the ordinary for her. Patient does have a history of chronic pancreatitis and has abdominal pain on a daily basis. EKG interpreted by me (3pts min.)? @ -[none] X-rays interpreted by me (1pt min.)? @ -[none] CT interpreted by me (1pt min.)? @ -[none] U/S interpreted by me (1pt. min.)? @ -[none] What testing was considered but not performed? (CT, X-rays, U/S, labs)? Why? @Consider imaging to include plain film x-rays or computed tomography scan. However the patient has a normal lipase. Given the fact the patient has had many CT scans and significant radiation exposure in the past. After long discussion with the patient this was deferred to shared decision-making. What meds were considered but not given? Why? @ -I did consider IV pain medications. However these were withheld as the patient does have history of multiple ER visits. I did give the patient dosages of ketorolac, metoclopramide, diphenhydramine, and one dose of [place]. Did you discuss the management of the patient with other professionals? @ -The case was discussed in detail with ED attending physician. Presentation, findings, treatment plan discussed in detail. Did you reconcile home meds? @ -[none] Was smoking cessation discussed for >3mins.? @ -[none] Was critical care preformed (if so, how long)? @ -[none] Were there social determinants of health that impacted care today? How? (Homelessness, low income, unemployed, alcoholism, drug addiction, souza sportation, low edu. Level, literacy, decrease access to med. care, long term, rehab)? @ -Patient specialist is out of the area for [facility]. Patient also has a history of multiple ER visits. Patient does have a primary care physician she can follow up with on Wednesday. Takes tramadol at home for chronic pain. I did a sling to the patient she'll need to follow up with her prescribing physicians for any further pain control options. Was there de-escalation of care discussed even if they declined? (Discuss DNR or withdrawal of care, Hospice)? @ -Not applicable What co-morbidities impacted this encounter? (DM, HTN, Smoking, COPD, CAD, Cancer, CVA, Hep., AIDS, mental health diagnosis, sleep apnea, morbid obesity)? @ -Diabetes, chronic abdominal pain, chronic and recurrent pancreatitis, chronic and recurrent migraine headaches. Was patient admitted / discharged? @ -Discharged Undiagnosed new problem with uncertain prognosis? @ -[none] Patient was told to return to the ER for any signs or symptoms worsen. Told to return immediately if any other problems arise. All questions answered. Treatment plan discussed. Patient in agreement Every effort has been made to ensure accuracy of this dictation. However, due to the limitations of electronic medical records and dictation devices, errors in charting still occur. Drug Therapy requiring intensive monitoring for toxicity (Heparin, Nitro, Insulin, Cardizem)? @ -[none] Were any procedures done? @ -[none] Diagnosis/symptom? @ -#1 acute on chronic headachelikely migraine headache. Consistent with previous migraines. Improved at discharge. Unlikely to poses threat to bodily function or life. #2 chronic abdominal painnormal lipase. Unlikely to poses threat to body function or life. Acute, or Chronic, or Acute on Chronic? @ -Acute on chronic Uncomplicated (without systemic symptoms) or Complicated (systemic symptoms)? @ -Uncomplicated Side effects of treatment? @ -[none] Exacerbation, Progression, or Severe Exacerbation] @ -Acute on chronic exacerbation Poses a threat to life or bodily function? @ -Unlikely - Lab Data Result diagrams: 10/02/22 20:52 10/02/22 20:52 Lab Results 10/02/22 10/02/22 Range/Units 20:52 20:52 WBC 4.8 (3.8-10.6) k/uL RBC 4.13 (3.80-5.40) m/uL Hgb 12.6 (11.4-16.0) gm/dL Hct 37.1 (34.0-46.0) % MCV 89.9 (80.0-100.0) fL MCH 30.4 (25.0-35.0) pg MCHC 33.9 (31.0-37.0) g/dL RDW 14.9 (11.5-15.5) % Plt Count 226 (150-450) k/uL MPV 8.4 Neutrophils % 45 % Lymphocytes % 45 % Monocytes % 5 % Eosinophils % 3 % Basophils % 0 % Neutrophils # 2.1 (1.3-7.7) k/uL Lymphocytes # 2.1 (1.0-4.8) k/uL Monocytes # 0.2 (0-1.0) k/uL Eosinophils # 0.2 (0-0.7) k/uL Basophils # 0.0 (0-0.2) k/uL Sodium 134 L (137-145) mmol/L Potassium 4.2 (3.5-5.1) mmol/L Chloride 104 (98-107) mmol/L Carbon Dioxide 19 L (22-30) mmol/L Anion Gap 11 mmol/L BUN 6 L (7-17) mg/dL Creatinine 0.68 (0.52-1.04) mg/dL Est GFR (CKD-EPI)AfAm >90 (>60 ml/min/1.73 sqM) Est GFR (CKD-EPI)NonAf >90 (>60 ml/min/1.73 sqM) Glucose 192 H (74-99) mg/dL Calcium 10.6 H (8.4-10.2) mg/dL Total Bilirubin 0.4 (0.2-1.3) mg/dL AST 29 (14-36) U/L ALT 22 (4-34) U/L Alkaline Phosphatase 50 (38-126) U/L Total Protein 6.7 (6.3-8.2) g/dL Albumin 3.8 (3.5-5.0) g/dL Lipase 143 (23-300) U/L Disposition Clinical Impression: Chronic headache, Chronic abdominal pain Disposition: HOME SELF-CARE Condition: Stable Instructions (If sedation given, give patient instructions): Migraine Headache (ED), Chronic Pain (ED), Abdominal Pain (ED) Additional Instructions: Follow-up with your regular physician Wednesday morning. Call your specialist at the [facility] regarding her abdominal pain. Follow-up with your regular physician as directed. Return to the ER immediately if any symptoms worsen, new symptoms arise, or any other problems develop. Is patient prescribed a controlled substance at d/c from ED?: No Referrals: Isi Carolina MD [Primary Care Provider] - 10/05/22 8:00 am Time of Disposition: 21:34
[2022-10-02] MEDS ORDERED: diphenhydrAMINE 50 MG/ML 1 ML VIAL IVP STA (21:01)
[2022-10-02 21:02] LABS: Basophils % (A) 0 %; Eosinophils # (A) 0.2 k/uL (0-0.7); Eosinophils % (A) 3 %; HCT 37.1 % (34.0-46.0); HGB 12.6 gm/dL (11.4-16.0); Lymphocytes # (A) 2.1 k/uL (1.0-4.8); Lymphocytes % (A) 45 %; MCH 30.4 pg (25.0-35.0); MCHC 33.9 g/dL (31.0-37.0); MCV 89.9 fL (80.0-100.0); Mean Platelet Volume 8.4; Monocytes # (A) 0.2 k/uL (0-1.0); Monocytes % (A) 5 %; Neutrophils # (A) 2.1 k/uL (1.3-7.7); Neutrophils % (A) 45 %; Platelet Count 226 k/uL (150-450); RBC 4.13 m/uL (3.80-5.40); RDW 14.9 % (11.5-15.5); WBC 4.8 k/uL (3.8-10.6)
[2022-10-02] MEDS ORDERED: METOCLOPRAMIDE 5 MG/ML 2 ML VIAL IVP STA (21:02)
[2022-10-02] MEDS ORDERED: KETOROLAC 15 MG/ML 1 ML VIAL IVP STA (21:02)
[2022-10-02 21:22] LABS: ALT 22 U/L (4-34); AST 29 U/L (14-36); African American GFR (CKD) >90 (>60 ml/min/1.73 sqM); Albumin 3.8 g/dL (3.5-5.0); Alkaline Phosphatase 50 U/L (38-126); Anion Gap 11 mmol/L; Blood Urea Nitrogen 6 mg/dL (7-17); Calcium 10.6 mg/dL (8.4-10.2); Carbon Dioxide 19 mmol/L (22-30); Chloride 104 mmol/L (98-107); Glucose 192 mg/dL (74-99); Lipase 143 U/L (23-300); Non-African American GFR(CKD) >90 (>60 ml/min/1.73 sqM); Potassium 4.2 mmol/L (3.5-5.1); Sodium 134 mmol/L (137-145); Total Bilirubin 0.4 mg/dL (0.2-1.3); Total Protein 6.7 g/dL (6.3-8.2)
[2022-10-02] MEDS ORDERED: HYDROcodone/APAP 5-325MG 1 EACH TAB PO STA (21:31)
[2022-10-02 21:53] VITALS: BP 116/68; PULSE 90; RESP 16
== END 2022-10-02 21:53 | disposition home or self-care (01) ==
LOC: EC 17:30
DX: G89.29 Other chronic pain (principal); R51.9 Headache, unspecified; R10.9 Unspecified abdominal pain; K85.90 Acute pancreatitis without necrosis or infection, unspecified; J45.909 Unspecified asthma, uncomplicated; E11.9 Type 2 diabetes mellitus without complications; K21.9 Gastro-esophageal reflux disease without esophagitis; F41.9 Anxiety disorder, unspecified; F32.A Depression, unspecified; Z87.891 Personal history of nicotine dependence; Z79.4 Long term (current) use of insulin; Z79.899 Other long term (current) drug therapy; Z79.84 Long term (current) use of oral hypoglycemic drugs; Z88.0 Allergy status to penicillin; Z88.1 Allergy status to other antibiotic agents; Z88.2 Allergy status to sulfonamides; Z88.8 Allergy status to other drugs, medicaments and biological substances; Z91.030 Bee allergy status; Z91.040 Latex allergy status; Z91.018 Allergy to other foods
CPT/HCPCS: 36415; 80053; 83690; 85025; 99284; 96374; 96375 ×2; J1200; J2765; J1885

== ENCOUNTER 2022-10-06 17:01 | Emergency (ER) | payer OTHER ==
[2022-10-06 17:23] VITALS: BP 175/110; PULSE 97; RESP 16; TEMP 98.9
--- NOTE | 2022-10-06 17:32 | ED ---
General Adult HPI - General Source: patient, RN notes reviewed Mode of arrival: ambulatory Limitations: no limitations <Violetta Ramírez - Last Filed: 10/06/22 17:29> <Jaylin Farfan - Last Filed: 10/07/22 18:28> - General Chief complaint: Abdominal Pain Stated complaint: Abd pain Time Seen by Provider: 10/06/22 17:32 - History of Present Illness Initial comments: female presents to the emergency department with chief complaint of abdominal pain. She describes as chronic in nature. (Violetta Ramírez) Patient 31-year-old female presents to the emergency department for abdominal pain. It started today. Patient has history of chronic abdominal pain. Pain is in her left upper abdomen. She denies radiation. It is sharp in nature. Reports nausea without vomiting. No fever or chills. No constipation, diarrhea, blood in stool. No burning with urination, blood in the urine, trouble urinating. No chest pain or shortness of breath (Jaylin Farfan) - Related Data Home Medications Medication Instructions Recorded Confirmed Omeprazole 20 mg PO BID 11/16/21 09/22/22 QUEtiapine FUMARATE [SEROquel XR] 600 mg PO HS 11/16/21 09/22/22 Acetaminophen [Tylenol Extra 500 mg PO Q4H PRN 03/30/22 09/22/22 Strength] Insulin Aspart [NovoLOG Flexpen] See Protocol SQ TID-W/MEALS PRN 03/30/22 09/22/22 Insulin Glargine,Hum.rec.anlog 45 units SQ DAILY 03/30/22 09/22/22 [Lantus Solostar Pen] Ondansetron Odt [Zofran ODT] 4 mg SL Q6H PRN 03/30/22 09/22/22 tiZANidine [Zanaflex] 4 mg PO BID PRN 03/30/22 09/22/22 Etonogestrel [Nexplanon] 68 mg INTRADERMA DIRECTED 06/22/22 09/22/22 traMADol HCl [Ultram] 50 mg PO Q8HR PRN 07/30/22 09/22/22 Albuterol Nebulized [Ventolin 2.5 mg INHALATION RT-Q4H PRN 09/18/22 09/22/22 Nebulized] Dicyclomine [Bentyl] 20 mg PO QID PRN 09/18/22 09/22/22 Insulin Aspart [NovoLOG Flexpen] 10 units SQ TID-W/MEALS 09/18/22 09/22/22 Lipase/Protease/Amylase [Zenpep Dr 2 cap PO TID-W/MEALS 09/18/22 09/22/22 5,000 Unit Capsule] Pioglitazone [Actos] 30 mg PO DAILY 09/18/22 09/22/22 Propranolol LA [Inderal LA] 60 mg PO HS 09/18/22 09/22/22 Previous Rx's Medication Instructions Recorded Ibuprofen [Motrin] 800 mg PO Q8HR PRN #30 tab 06/07/22 Ibuprofen [Motrin] 800 mg PO Q8HR PRN #30 tab 09/23/22 Lidocaine 5% Patch [Lidoderm 5% 1 patch TOPICAL DAILY PRN #7 patch 09/23/22 Patch] Allergies Allergy/AdvReac Type Severity Reaction Status Date / Time bee pollen Allergy Severe Anaphylaxis Verified 10/02/22 17:57 haloperidol lactate Allergy Severe QUIT Verified 10/02/22 17:57 [From Haldol] BREATHING latex Allergy Severe RASH-THROAT Verified 10/02/22 17:57 CLOSES murrieta Allergy Anaphylaxis Verified 10/02/22 17:57 coconut Allergy Anaphylaxis Verified 10/02/22 17:57 pineapple Allergy Anaphylaxis Verified 10/02/22 17:57 spider venom Allergy Swelling Verified 10/02/22 17:57 Sulfa (Sulfonamide Allergy THROAT Verified 10/02/22 17:57 Antibiotics) SWELLS venom-wasp Allergy Swelling Verified 10/02/22 17:57 venom-wasp protein Allergy Swelling Verified 10/02/22 17:57 promethazine HCl AdvReac Severe Nausea & Verified 10/02/22 17:57 [From Phenergan] Vomiting amoxicillin AdvReac Nausea & Verified 10/02/22 17:57 Vomiting ANTS AdvReac Mild Anaphylaxis Uncoded 10/02/22 17:57 Review of Systems ROS Other: All systems not noted in ROS Statement are negative. <Violetta Ramírez - Last Filed: 10/06/22 17:29> ROS Other: All systems not noted in ROS Statement are negative. <Jaylin Farfan - Last Filed: 10/07/22 18:28> ROS Statement: Those systems with pertinent positive or pertinent negative responses have been documented in the HPI. Past Medical History Past Medical History: Asthma, Diabetes Mellitus, GERD/Reflux Additional Past Medical History / Comment(s): migraines, degenerative disk disease, endometriosis, lupus, pancreatitis, DM2- insulin, gastroparesis History of Any Multi-Drug Resistant Organisms: None Reported Past Surgical History: Cholecystectomy, Orthopedic Surgery Additional Past Surgical History / Comment(s): laparoscopc surgery for endometriosis, cyst removed from left foot, EGD, Past Anesthesia/Blood Transfusion Reactions: Previous Problems w/ Anesthesia Additional Past Anesthesia/Blood Transfusion Reaction / Comment(s): hard to wake up for 48-72 hours after laparoscopic surgery-was in hosp. for 3 days Past Psychological History: Anxiety, Depression, PTSD Smoking Status: Former smoker Past Alcohol Use History: None Reported Past Drug Use History: None Reported - Past Family History Mother Family Medical History: Cancer Additional Family Medical History / Comment(s): Migraines, pancreatic cancer, . Father Family Medical History: Coronary Artery Disease (CAD), Hypertension Additional Family Medical History / Comment(s): ddd, alcoholism & drug use <Violetta Ramíerz - Last Filed: 10/06/22 17:29> General Exam Limitations: no limitations <Violetta Ramírez - Last Filed: 10/06/22 17:29> General appearance: alert, in no apparent distress Head exam: Present: atraumatic, normocephalic, normal inspection Respiratory exam: Present: normal lung sounds bilaterally. Absent: respiratory distress, wheezes, rales, rhonchi, stridor Cardiovascular Exam: Present: regular rate, normal rhythm, normal heart sounds. Absent: systolic murmur, diastolic murmur, rubs, gallop, clicks GI/Abdominal exam: Present: soft, normal bowel sounds. Absent: distended, tenderness, guarding, rebound, rigid Neurological exam: Present: alert, oriented X3, CN II-XII intact Psychiatric exam: Present: normal affect, normal mood Skin exam: Present: warm, dry, intact, normal color. Absent: rash <Jaylin Farfan - Last Filed: 10/07/22 18:28> - General Exam Comments Initial Comments: Visual Physical Exam Vital signs reviewed General: Well-appearing, nontoxic, no acute distress. Head: Normocephalic, atraumatic Eyes: PERRLA, EOMI ENT: Airway patent Chest: Nonlabored breathing Skin: No visual rash, normal skin tone Neuro: Alert and oriented 3 Musculoskeletal: No gross abnormalities (Violetta Ramírez) Course Vital Signs 10/06/22 17:21 Temperature 98.9 F Pulse Rate 97 Respiratory 16 Rate Blood Pressure 175/110 O2 Sat by Pulse 98 Oximetry Medical Decision Making - Lab Data Result diagrams: 10/06/22 19:25 10/06/22 19:25 <Jaylin Farfan - Last Filed: 10/07/22 18:28> - Medical Decision Making Was pt. sent in by a medical professional or institution (, PA, POST OFFICE CLERK, urgent care, hospital, or retirement...) When possible be specific @ -No Did you speak to anyone other than the patient for history (EMS, parent, family, police, friend...)? What history was obtained from this source @ -No Did you review nursing and triage notes (agree or disagree)? Why? @ -I reviewed and agree with nursing and triage notes Were old charts reviewed (outside hosp., previous admission, EMS record, old EKG, old radiological studies, urgent care reports/EKG's, retirement records)? Report findings @ -No old charts were reviewed Differential Diagnosis (chest pain, altered mental status, abdominal pain women, abdominal pain men, vaginal bleeding, weakness, fever, dyspnea, syncope, headache, dizziness, GI bleed, back pain, seizure, CVA, palpatations, mental health)? @ -Differential Abdominal Pain Women: Appendicitis, Cholecystitis, diverticulosis, ischemic bowel, pancreatitis, hepatitis, UTI, gastroenteritis, AAA, incarcerated hernia, bowel obstruction, constipation, inflammatory bowel, hepatitis, peptic ulcer disease, splenic infarction, perforated viscus, vulvitis, ovarian torsion, PID, kidney stone, placenta abruption, this is not meant to be an all-inclusive list EKG interpreted by me (3pts min.). @ -None X-rays interpreted by me (1pt min.). @ -None done CT interpreted by me (1pt min.). @ -None done U/S interpreted by me (1pt. min.). @ -None done What testing was considered but not performed or refused? (CT, X-rays, U/S, labs)? Why? @ -None What meds were considered but not given or refused? Why? @ -None Did you discuss the management of the patient with other professionals (professionals i.e. , PA, POST OFFICE CLERK, lab, RT, psych nurse, case management social worker, prototype engineer manager, teacher, air intelligence officer, family caseworker)? Give summary @ -No Was smoking cessation discussed for >3mins.? @ -No Was critical care preformed (if so, how long)? @ -No Were there social determinants of health that impacted care today? How? (Homelessness, low income, unemployed, alcoholism, drug addiction, transportation, low edu. Level, literacy, decrease access to med. care, [facility], rehab)? @ -No Was there de-escalation of care discussed even if they declined (Discuss DNR or withdrawal of care, Hospice)? DNR status @ -No What co-morbidities impacted this encounter? (DM, HTN, Smoking, COPD, CAD, Cancer, CVA, ARF, Chemo, Hep., AIDS, mental health diagnosis, sleep apnea, morbid obesity)? @ -Chronic abdominal pain Was patient admitted / discharged? Hospital course, mention meds given and route, prescriptions, significant lab abnormalities, going to OR and other pertinent info. @ -Discharged. Clinical presentation consistent with acute on chronic abdominal pain. Patient afebrile labs unremarkable she is discharged in stable medical condition Undiagnosed new problem with uncertain prognosis? @ -No Drug Therapy requiring intensive monitoring for toxicity (Heparin, Nitro, Insulin, Cardizem)? @ -No Were any procedures done? @ -No Diagnosis/symptom? @ -Abdominal pain Acute, or Chronic, or Acute on Chronic? @ -Acute on chronic Uncomplicated (without systemic symptoms) or Complicated (systemic symptoms)? @ Uncomplicated Side effects of treatment? @ -No Exacerbation, Progression, or Severe Exacerbation? @ -No Poses a threat to life or bodily function? How? (Chest pain, [place], [place], pneumonia, PE, COPD, DKA, ARF, appy, cholecystitis, CVA, Diverticulitis, Homicidal, Suicidal, threat to staff... and all critical care pts) @ -No Dr. Granda is my attending (Jaylin Farfan) - Lab Data Lab Results 10/06/22 10/06/22 Range/Units 19:25 19:25 WBC 5.4 (3.8-10.6) k/uL RBC 4.32 (3.80-5.40) m/uL Hgb 12.9 (11.4-16.0) gm/dL Hct 39.2 (34.0-46.0) % MCV 90.7 (80.0-100.0) fL MCH 30.0 (25.0-35.0) pg MCHC 33.1 (31.0-37.0) g/dL RDW 14.6 (11.5-15.5) % Plt Count 233 (150-450) k/uL MPV 8.4 Neutrophils % 51 % Lymphocytes % 39 % Monocytes % 5 % Eosinophils % 4 % Basophils % 0 % Neutrophils # 2.7 (1.3-7.7) k/uL Lymphocytes # 2.1 (1.0-4.8) k/uL Monocytes # 0.3 (0-1.0) k/uL Eosinophils # 0.2 (0-0.7) k/uL Basophils # 0.0 (0-0.2) k/uL Sodium 134 L (137-145) mmol/L Potassium 4.4 (3.5-5.1) mmol/L Chloride 105 (98-107) mmol/L Carbon Dioxide 18 L (22-30) mmol/L Anion Gap 11 mmol/L BUN 10 (7-17) mg/dL Creatinine 0.63 (0.52-1.04) mg/dL Est GFR (CKD-EPI)AfAm >90 (>60 ml/min/1.73 sqM) Est GFR (CKD-EPI)NonAf >90 (>60 ml/min/1.73 sqM) Glucose 144 H (74-99) mg/dL Calcium 10.7 H (8.4-10.2) mg/dL Total Bilirubin 0.7 (0.2-1.3) mg/dL AST 26 (14-36) U/L ALT 20 (4-34) U/L Alkaline Phosphatase 54 (38-126) U/L Total Protein 7.9 (6.3-8.2) g/dL Albumin 4.4 (3.5-5.0) g/dL Lipase 127 (23-300) U/L Disposition <Violetta Ramírez - Last Filed: 10/06/22 17:29> Is patient prescribed a controlled substance at d/c from ED?: No <Jaylin Farfan - Last Filed: 10/07/22 18:28> Clinical Impression: Upper abdominal pain Disposition: HOME SELF-CARE Condition: Good Instructions (If sedation given, give patient instructions): Abdominal Pain (ED) Additional Instructions: Take home prescriptions for pain. Follow up with GI specialist in 1-2 days. Return to the emergency department if you experience new, concerning, or worsening symptoms. Referrals: Isi Carolina MD [Primary Care Provider] - 1-2 days
[2022-10-06] MEDS ORDERED: ONDANSETRON 4 MG/2 ML VIAL IVP STA (18:57)
[2022-10-06] MEDS ORDERED: KETOROLAC 15 MG/ML 1 ML VIAL IVP STA (18:57)
[2022-10-06] MEDS ORDERED: diphenhydrAMINE 50 MG/ML 1 ML VIAL IVP STA (18:57)
[2022-10-06 19:31] LABS: Basophils % (A) 0 %; Eosinophils # (A) 0.2 k/uL (0-0.7); Eosinophils % (A) 4 %; HCT 39.2 % (34.0-46.0); HGB 12.9 gm/dL (11.4-16.0); Lymphocytes # (A) 2.1 k/uL (1.0-4.8); Lymphocytes % (A) 39 %; MCHC 33.1 g/dL (31.0-37.0); MCV 90.7 fL (80.0-100.0); Mean Platelet Volume 8.4; Monocytes # (A) 0.3 k/uL (0-1.0); Monocytes % (A) 5 %; Neutrophils # (A) 2.7 k/uL (1.3-7.7); Neutrophils % (A) 51 %; Platelet Count 233 k/uL (150-450); RBC 4.32 m/uL (3.80-5.40); RDW 14.6 % (11.5-15.5); WBC 5.4 k/uL (3.8-10.6)
[2022-10-06 19:50] LABS: ALT 20 U/L (4-34); AST 26 U/L (14-36); African American GFR (CKD) >90 (>60 ml/min/1.73 sqM); Albumin 4.4 g/dL (3.5-5.0); Alkaline Phosphatase 54 U/L (38-126); Anion Gap 11 mmol/L; Blood Urea Nitrogen 10 mg/dL (7-17); Calcium 10.7 mg/dL (8.4-10.2); Carbon Dioxide 18 mmol/L (22-30); Chloride 105 mmol/L (98-107); Glucose 144 mg/dL (74-99); Lipase 127 U/L (23-300); Non-African American GFR(CKD) >90 (>60 ml/min/1.73 sqM); Potassium 4.4 mmol/L (3.5-5.1); Sodium 134 mmol/L (137-145); Total Bilirubin 0.7 mg/dL (0.2-1.3); Total Protein 7.9 g/dL (6.3-8.2)
== END 2022-10-06 21:30 | disposition home or self-care (01) ==
LOC: EC 17:01
DX: G89.29 Other chronic pain (principal); R10.9 Unspecified abdominal pain; E11.9 Type 2 diabetes mellitus without complications; K21.9 Gastro-esophageal reflux disease without esophagitis; J45.909 Unspecified asthma, uncomplicated; F32.A Depression, unspecified; F41.9 Anxiety disorder, unspecified; Z87.891 Personal history of nicotine dependence; Z88.0 Allergy status to penicillin; Z88.1 Allergy status to other antibiotic agents; Z88.2 Allergy status to sulfonamides; Z88.8 Allergy status to other drugs, medicaments and biological substances; Z91.030 Bee allergy status; Z91.040 Latex allergy status; Z79.84 Long term (current) use of oral hypoglycemic drugs; Z79.4 Long term (current) use of insulin; Z79.899 Other long term (current) drug therapy
CPT/HCPCS: 36415; 80053; 83690; 85025; 99284; 96374; 96375 ×2; J1200; J2405; J1885

== ENCOUNTER 2022-10-11 15:50 | Emergency (ER) | payer OTHER ==
[2022-10-11 15:56] VITALS: BP 112/85; PULSE 118; RESP 18; TEMP 98.8
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
== END 2022-10-11 18:16 | disposition home or self-care (01) ==
LOC: EC 15:50
DX: T74.21XA Adult sexual abuse, confirmed, initial encounter (principal); E11.9 Type 2 diabetes mellitus without complications; F32.A Depression, unspecified; K21.9 Gastro-esophageal reflux disease without esophagitis; Z79.4 Long term (current) use of insulin; Z79.84 Long term (current) use of oral hypoglycemic drugs; Z79.899 Other long term (current) drug therapy; Z88.0 Allergy status to penicillin; Z88.1 Allergy status to other antibiotic agents; Z88.2 Allergy status to sulfonamides; Z88.8 Allergy status to other drugs, medicaments and biological substances; Z91.030 Bee allergy status; Z91.040 Latex allergy status; Z87.891 Personal history of nicotine dependence; Z90.49 Acquired absence of other specified parts of digestive tract; Z91.018 Allergy to other foods
CPT/HCPCS: 99283

== ENCOUNTER → 2022-10-14 | Outpatient (CLI) | payer OTHER ==
[2022-10-14 12:19] VITALS: BP 101/70; PULSE 85; RESP 18; TEMP 98
--- NOTE | 2022-10-14 14:33 | P.PAINPG ---
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 Pt states she experienced 50 % pain relief x 2 wks s/p procedure. Pain level is provoked at 9 /10 in intensity, constant, localized in the RUQ/LUQ, achy, stabbing in character w/o shooting pain. Pain has no palliative factors. Pain is provoked with eating and movements. Interventional pain procedures completed include Celiac Plexus NB Patient is currently on Tramadol, Ibu Patient denies any side effects of the medication(s), denies excessive drowsiness or sleepiness, denies suicidal ideation and reports that the current pain medication is helping to control the pain and improve activities of daily living. Patient denies any motor or sensory deficits. Patient denies any fever or night sweats, denies any change in the bowel movements or urination. Physical Examination: -Constitutional: Cooperative. Not in acute distress . - Neurologic: Cranial nerve II to XII intact. No focal neurological deficits. - Psychatric: Alert & oriented x 3. Matching mood & appropriate affect. Judgment and insight intact. - Musculoskeletal: Cervical spine: Muscle bulk/ tone/ strength in the bilateral upper extremities normal Vertebral body tenderness to palpation over Spurling test positive Distraction test positive Facet loading test positive TTP Thoracic spine +RUQ/ LUQ TTP Muscle bulk / tone/ strength in the bilateral paraspinal muscles normal Vertebral body tender to palpation over Facet loading test positive TTP Lumbar spine: Motor bulk/ tone/ strength lower extremities , thigh and legs : 5/5 Deep tendon reflexes : Normal Knee Jerk. Normal Ankle Jerk . Vertebral body tenderness to palpation over You Test positive Lumbar Facet Loading Test positive Straight Leg Raise: positive at 30 degrees right side/ left side Gaenslen's Test positive Sacral spine : Severe tenderness over the Sacroiliac joint: right side / left side Range of motion: Flexion of the lumbar spine <60 degrees Range of motion: Extension of the lumbar spine <20 degrees Gaenslen's Test positive right side / left side Zelda test: positive right side / left side Thigh Thrust Test positive right side / left side Sacral Thrust Test positive right side / left side Assessment and plan: Chronic LBP secondary to lumbar DDD, spondylosis with facet arthropathy without myelopathy Recommendation of Neurolytic NB. May need a series of injections for optimal pain relief. Risks, benefits of procedure discussed and pt verbalized understanding. Admits to anticoagulant use or medical history of diabetes. Protocol for discontinuation/ continuation of medications pati procedure discussed. Minimal anesthesia provided, if clinically indicated, consisting of Versed and Fentanyl. All questions answered. I have spent less than 30 minutes on patient care today. Dr Reese was available by phone for the evaluation of this patient. The time was used to review the medical records including relevant urine studies and Prescription history (MAPs), review of the available imaging, evaluation and examination of the patient, coordination of care with the medical staff and if applicable referring physicians, as well as creation of the medical record PQRS Narrative: Smoking Status Never smoker Hx Alcohol Use (MH) No Home Medications: Ambulatory Orders Omeprazole 20 mg PO BID 11/16/21 QUEtiapine FUMARATE [SEROquel XR] 600 mg PO HS 11/16/21 Acetaminophen [Tylenol Extra Strength] 500 mg PO Q4H PRN 03/30/22 Insulin Aspart [NovoLOG Flexpen] See Protocol SQ TID-W/MEALS PRN 03/30/22 Insulin Glargine,Hum.rec.anlog [Lantus Solostar Pen] 45 units SQ DAILY 03/30/22 Ondansetron Odt [Zofran ODT] 4 mg SL Q6H PRN 03/30/22 tiZANidine [Zanaflex] 4 mg PO BID PRN 03/30/22 Ibuprofen [Motrin] 800 mg PO Q8HR PRN #30 tab 06/07/22 Etonogestrel [Nexplanon] 68 mg INTRADERMA DIRECTED 06/22/22 traMADol HCl [Ultram] 50 mg PO Q8HR PRN 07/30/22 Albuterol Nebulized [Ventolin Nebulized] 2.5 mg INHALATION RT-Q4H PRN 09/18/22 Dicyclomine [Bentyl] 20 mg PO QID PRN 09/18/22 Insulin Aspart [NovoLOG Flexpen] 10 units SQ TID-W/MEALS 09/18/22 Lipase/Protease/Amylase [Zenpep Dr 5,000 Unit Capsule] 2 cap PO TID-W/MEALS 09/18/22 Pioglitazone [Actos] 30 mg PO DAILY 09/18/22 Propranolol LA [Inderal LA] 60 mg PO HS 09/18/22 Ibuprofen [Motrin] 800 mg PO Q8HR PRN #30 tab 09/23/22 Lidocaine 5% Patch [Lidoderm 5% Patch] 1 patch TOPICAL DAILY PRN #7 patch 09/23/22 Controlled Substance Measures - Controlled Substance Measures Is patient prescribed a controlled substance at discharge?: No
== END ==
LOC: PNWHC3 10:56
PROVIDERS: ATTEND Specialist
DX: M51.36 Other intervertebral disc degeneration, lumbar region (principal); M47.816 Spondylosis without myelopathy or radiculopathy, lumbar region; G89.29 Other chronic pain; Z91.040 Latex allergy status; Z91.018 Allergy to other foods; Z88.2 Allergy status to sulfonamides; Z91.02 Food additives allergy status; Z88.0 Allergy status to penicillin; Z91.048 Other nonmedicinal substance allergy status; Z91.038 Other insect allergy status
CPT/HCPCS: 99211

== ENCOUNTER 2022-10-16 21:01 | Emergency (ER) | payer OTHER ==
[2022-10-16 21:05] VITALS: TEMP 98.9
[2022-10-16] MEDS ORDERED: diphenhydrAMINE 50 MG/ML 1 ML VIAL IM STA (22:41)
[2022-10-16] MEDS ORDERED: ONDANSETRON ODT 4 MG TAB PO STA (22:41)
[2022-10-16] MEDS ORDERED: KETOROLAC 15 MG/ML 1 ML VIAL IM STA (22:41)
--- NOTE | 2022-10-16 23:08 | ED ---
Abdominal Pain HPI - General Chief Complaint: Abdominal Pain Stated Complaint: Abdominal pain Time Seen by Provider: 10/16/22 22:35 Source: patient Mode of arrival: ambulatory Limitations: no limitations - History of Present Illness Initial Comments: 31-year-old female well known to our ER presenting with chief complaint of abdominal pain. Pain is located in the right upper quadrant started around noon today. Patient is currently in pain management receiving nerve blocks for this chronic abdominal pain. She minutes to nausea with no vomiting. No fever, chills, chest pain, difficulty breathing, dysuria, hematuria, vaginal bleeding or discharge, URI-like symptoms. Surgical history includes cholecystectomy - Related Data Home Medications Medication Instructions Recorded Confirmed Omeprazole 20 mg PO BID 11/16/21 10/14/22 QUEtiapine FUMARATE [SEROquel XR] 600 mg PO HS 11/16/21 10/14/22 Acetaminophen [Tylenol Extra 500 mg PO Q4H PRN 03/30/22 10/14/22 Strength] Insulin Aspart [NovoLOG Flexpen] See Protocol SQ TID-W/MEALS PRN 03/30/22 10/14/22 Insulin Glargine,Hum.rec.anlog 45 units SQ DAILY 03/30/22 10/14/22 [Lantus Solostar Pen] Ondansetron Odt [Zofran ODT] 4 mg SL Q6H PRN 03/30/22 10/14/22 tiZANidine [Zanaflex] 4 mg PO BID PRN 03/30/22 10/14/22 Etonogestrel [Nexplanon] 68 mg INTRADERMA DIRECTED 06/22/22 10/14/22 traMADol HCl [Ultram] 50 mg PO Q8HR PRN 07/30/22 10/14/22 Albuterol Nebulized [Ventolin 2.5 mg INHALATION RT-Q4H PRN 09/18/22 10/14/22 Nebulized] Dicyclomine [Bentyl] 20 mg PO QID PRN 09/18/22 10/14/22 Insulin Aspart [NovoLOG Flexpen] 10 units SQ TID-W/MEALS 09/18/22 10/14/22 Lipase/Protease/Amylase [Zenpep Dr 2 cap PO TID-W/MEALS 09/18/22 10/14/22 5,000 Unit Capsule] Pioglitazone [Actos] 30 mg PO DAILY 09/18/22 10/14/22 Propranolol LA [Inderal LA] 60 mg PO HS 09/18/22 10/14/22 Previous Rx's Medication Instructions Recorded Ibuprofen [Motrin] 800 mg PO Q8HR PRN #30 tab 06/07/22 Ibuprofen [Motrin] 800 mg PO Q8HR PRN #30 tab 09/23/22 Lidocaine 5% Patch [Lidoderm 5% 1 patch TOPICAL DAILY PRN #7 patch 09/23/22 Patch] Allergies Allergy/AdvReac Type Severity Reaction Status Date / Time bee pollen Allergy Severe Anaphylaxis Verified 10/16/22 21:05 haloperidol lactate Allergy Severe QUIT Verified 10/16/22 21:05 [From Haldol] BREATHING latex Allergy Severe RASH-THROAT Verified 10/16/22 21:05 CLOSES [place] Allergy Anaphylaxis Verified 10/16/22 21:05 coconut Allergy Anaphylaxis Verified 10/16/22 21:05 pineapple Allergy Anaphylaxis Verified 10/16/22 21:05 spider venom Allergy Swelling Verified 10/16/22 21:05 Sulfa (Sulfonamide Allergy THROAT Verified 10/16/22 21:05 Antibiotics) SWELLS venom-wasp Allergy Swelling Verified 10/16/22 21:05 venom-wasp protein Allergy Swelling Verified 10/16/22 21:05 promethazine HCl AdvReac Severe Nausea & Verified 10/16/22 21:05 [From Phenergan] Vomiting amoxicillin AdvReac Nausea & Verified 10/16/22 21:05 Vomiting ANTS AdvReac Mild Anaphylaxis Uncoded 10/16/22 21:05 Review of Systems ROS Statement: Those systems with pertinent positive or pertinent negative responses have been documented in the HPI. ROS Other: All systems not noted in ROS Statement are negative. Past Medical History Past Medical History: Asthma, Diabetes Mellitus, GERD/Reflux Additional Past Medical History / Comment(s): migraines, degenerative disk disease, endometriosis, lupus, pancreatitis, DM2- insulin, gastroparesis History of Any Multi-Drug Resistant Organisms: None Reported Past Surgical History: Cholecystectomy, Orthopedic Surgery Additional Past Surgical History / Comment(s): laparoscopc surgery for endometriosis, cyst removed from left foot, EGD, Past Anesthesia/Blood Transfusion Reactions: Previous Problems w/ Anesthesia Additional Past Anesthesia/Blood Transfusion Reaction / Comment(s): hard to wake up for 48-72 hours after laparoscopic surgery-was in hosp. for 3 days Past Psychological History: Anxiety, Depression, PTSD Smoking Status: Former smoker Past Alcohol Use History: None Reported Past Drug Use History: None Reported - Past Family History Mother Family Medical History: Cancer Additional Family Medical History / Comment(s): Migraines, pancreatic cancer, . Father Family Medical History: Coronary Artery Disease (CAD), Hypertension Additional Family Medical History / Comment(s): ddd, alcoholism & drug use General Exam Limitations: no limitations General appearance: alert, in no apparent distress Head exam: Present: atraumatic, normocephalic, normal inspection Eye exam: Present: normal appearance Neck exam: Present: normal inspection, full ROM Respiratory exam: Present: normal lung sounds bilaterally. Absent: respiratory distress, wheezes, rales, rhonchi, stridor Cardiovascular Exam: Present: regular rate, normal rhythm, normal heart sounds. Absent: systolic murmur, diastolic murmur, rubs, gallop, clicks GI/Abdominal exam: Present: soft, tenderness. Absent: distended, guarding, rebound, rigid Neurological exam: Present: alert, oriented X3, CN II-XII intact Psychiatric exam: Present: normal affect, normal mood Skin exam: Present: warm, dry, intact, normal color. Absent: rash Course Vital Signs 10/16/22 10/17/22 21:03 01:36 Temperature 98.9 F Pulse Rate 99 89 Respiratory 16 20 Rate Blood Pressure 151/97 127/74 O2 Sat by Pulse 98 99 Oximetry Medical Decision Making - Medical Decision Making Was pt. sent in by a medical professional or institution (, PA, PHILATELIC CONSULTANT, urgent care, hospital, or custodial...) When possible be specific @ -No Did you speak to anyone other than the patient for history (EMS, parent, family, police, friend...)? What history was obtained from this source @ -No Did you review nursing and triage notes (agree or disagree)? Why? @ -I reviewed and agree with nursing and triage notes Were old charts reviewed (outside hosp., previous admission, EMS record, old EK G, old radiological studies, urgent care reports/EKG's, custodial records)? Report findings @ -No old charts were reviewed Differential Diagnosis (chest pain, altered mental status, abdominal pain women, abdominal pain men, vaginal bleeding, weakness, fever, dyspnea, syncope, headache, dizziness, GI bleed, back pain, seizure, CVA, palpatations, mental health, musculoskeletal)? @ -MDM Differential Abdominal Pain Women: Appendicitis, Cholecystitis, diverticulosis, ischemic bowel, pancreatitis, hepatitis, UTI, gastroenteritis, AAA, incarcerated hernia, bowel obstruction, constipation, inflammatory bowel, hepatitis, peptic ulcer disease, splenic infarction, perforated viscus, vulvitis, ovarian torsion, PID, kidney stone, placenta abruption... This is not meant to be an all-inclusive list EKG interpreted by me (3pts min.). @ -As above X-rays interpreted by me (1pt min.). @ -None done CT interpreted by me (1pt min.). @ -None done U/S interpreted by me (1pt. min.). @ -None done What testing was considered but not performed or refused? (CT, X-rays, U/S, labs)? Why? @ -None What meds were considered but not given or refused? Why? @ -None Did you discuss the management of the patient with other professionals (professionals i.e. , PA, PHILATELIC CONSULTANT, lab, RT, psych nurse, oncology social worker, utility bill collection clerk, teacher, corrections officer, case repairer)? Give summary @ -No Was smoking cessation discussed for >3mins.? @ -No Was critical care preformed (if so, how long)? @ -No Were there social determinants of health that impacted care today? How? (Homelessness, low income, unemployed, alcoholism, drug addiction, transportation, low edu. Level, literacy, decrease access to med. care, half-way, r ehab)? @ -No Was there de-escalation of care discussed even if they declined (Discuss DNR or withdrawal of care, Hospice)? DNR status @ -No What co-morbidities impacted this encounter? (DM, HTN, Smoking, COPD, CAD, Cancer, CVA, ARF, Chemo, Hep., AIDS, mental health diagnosis, sleep apnea, morbid obesity)? @ -None Was patient admitted / discharged? Hospital course, mention meds given and route, prescriptions, significant lab abnormalities, going to OR and other pertinent info. @ -31-year-old female well known to our ER presenting with chief complaint of abdominal pain. Located primarily in the right upper quadrant. Surgical history includes cholecystectomy. Patient is currently seeing pain management for upper abdominal pain. No vomiting or fevers. Lab work shows no leukocytosis or anemia. Lipase 532, patient has history of elevated lipase. Urine shows evidence of contamination. HCG is negative. Patient will be discharged and instructed to follow-up with her PCP and pain management. Follow- up with PCP. Report back to ER with any new or worsening symptoms. Discussed return parameters and answered all questions. Patient conveyed verbal understanding and agreed to the plan. I discussed this case in detail with my attending Dr. Avalos Undiagnosed new problem with uncertain prognosis? @ -No Drug Therapy requiring intensive monitoring for toxicity (Heparin, Nitro, Insulin, Cardizem)? @ -No Were any procedures done? @ -No Diagnosis/symptom? @ -Chronic abdominal pain Acute, or Chronic, or Acute on Chronic? @ -Acute on chronic Uncomplicated (without systemic symptoms) or Complicated (systemic symptoms)? @ -Uncomplicated Side effects of treatment? @ -No Exacerbation, Progression, or Severe Exacerbation? @ -No Poses a threat to life or bodily function? How? (Chest pain, [place], [place], pneumonia, PE, COPD, DKA, ARF, appy, cholecystitis, CVA, Diverticulitis, Homicidal, Suicidal, threat to staff... and all critical care pts) @ -Low likelihood - Lab Data Result diagrams: 10/16/22 23:02 10/16/22 23:02 Lab Results 10/16/22 10/16/22 10/17/22 Range/Units 23:02 23:02 00:31 WBC 6.1 (3.8-10.6) k/uL RBC 4.27 (3.80-5.40) m/uL Hgb 12.9 (11.4-16.0) gm/dL Hct 38.4 (34.0-46.0) % MCV 89.7 (80.0-100.0) fL MCH 30.1 (25.0-35.0) pg MCHC 33.6 (31.0-37.0) g/dL RDW 14.8 (11.5-15.5) % Plt Count 232 (150-450) k/uL MPV 8.8 Neutrophils % 55 % Lymphocytes % 33 % Monocytes % 4 % Eosinophils % 6 % Basophils % 0 % Neutrophils # 3.4 (1.3-7.7) k/uL Lymphocytes # 2.0 (1.0-4.8) k/uL Monocytes # 0.2 (0-1.0) k/uL Eosinophils # 0.3 (0-0.7) k/uL Basophils # 0.0 (0-0.2) k/uL Sodium 135 L (137-145) mmol/L Potassium 4.3 (3.5-5.1) mmol/L Chloride 105 (98-107) mmol/L Carbon Dioxide 22 (22-30) mmol/L Anion Gap 8 mmol/L BUN 11 (7-17) mg/dL Creatinine 0.68 (0.52-1.04) mg/dL Est GFR (CKD-EPI)AfAm >90 (>60 ml/min/1.73 sqM) Est GFR (CKD-EPI)NonAf >90 (>60 ml/min/1.73 sqM) Glucose 234 H (74-99) mg/dL Calcium 10.2 (8.4-10.2) mg/dL Total Bilirubin 0.4 (0.2-1.3) mg/dL AST 19 (14-36) U/L ALT 18 (4-34) U/L Alkaline Phosphatase 66 (38-126) U/L Total Protein 7.0 (6.3-8.2) g/dL Albumin 3.9 (3.5-5.0) g/dL Amylase 60 (30-110) U/L Lipase 532 H (23-300) U/L Urine Color Yellow Urine Appearance Cloudy H (Clear) Urine pH 6.5 (5.0-8.0) Ur Specific [place] 1.024 (1.001-1.035) Urine Protein Trace H (Negative) Urine Glucose (UA) 4+ H (Negative) Urine Ketones Negative (Negative) Urine Blood Small H (Negative) Urine Nitrite Negative (Negative) Urine Bilirubin Negative (Negative) Urine Urobilinogen <2.0 (<2.0) mg/dL Ur Leukocyte Esterase Large H (Negative) Urine RBC 6 H (0-5) /hpf Urine WBC 15 H (0-5) /hpf Ur Squamous Epith Cells 19 H (0-4) /hpf Urine Bacteria Moderate H (None) /hpf Urine Mucus Occasional H (None) /hpf Urine Yeast (Budding) Occasional H (None) /hpf Urine HCG, Qual (Not Detectd) 10/17/22 Range/Units 00:31 WBC (3.8-10.6) k/uL RBC (3.80-5.40) m/uL Hgb (11.4-16.0) gm/dL Hct (34.0-46.0) % MCV (80.0-100.0) fL MCH (25.0-35.0) pg MCHC (31.0-37.0) g/dL RDW (11.5-15.5) % Plt Count (150-450) k/uL MPV Neutrophils % % Lymphocytes % % Monocytes % % Eosinophils % % Basophils % % Neutrophils # (1.3-7.7) k/uL Lymphocytes # (1.0-4.8) k/uL Monocytes # (0-1.0) k/uL Eosinophils # (0-0.7) k/uL Basophils # (0-0.2) k/uL Sodium (137-145) mmol/L Potassium (3.5-5.1) mmol/L Chloride (98-107) mmol/L Carbon Dioxide (22-30) mmol/L Anion Gap mmol/L BUN (7-17) mg/dL Creatinine (0.52-1.04) mg/dL Est GFR (CKD-EPI)AfAm (>60 ml/min/1.73 sqM) Est GFR (CKD-EPI)NonAf (>60 ml/min/1.73 sqM) Glucose (74-99) mg/dL Calcium (8.4-10.2) mg/dL Total Bilirubin (0.2-1.3) mg/dL AST (14-36) U/L ALT (4-34) U/L Alkaline Phosphatase (38-126) U/L Total Protein (6.3-8.2) g/dL Albumin (3.5-5.0) g/dL Amylase (30-110) U/L Lipase (23-300) U/L Urine Color Urine Appearance (Clear) Urine pH (5.0-8.0) Ur Specific [place] (1.001-1.035) Urine Protein (Negative) Urine Glucose (UA) (Negative) Urine Ketones (Negative) Urine Blood (Negative) Urine Nitrite (Negative) Urine Bilirubin (Negative) Urine Urobilinogen (<2.0) mg/dL Ur Leukocyte Esterase (Negative) Urine RBC (0-5) /hpf Urine WBC (0-5) /hpf Ur Squamous Epith Cells (0-4) /hpf Urine Bacteria (None) /hpf Urine Mucus (None) /hpf Urine Yeast (Budding) (None) /hpf Urine HCG, Qual Not Detected (Not Detectd) Disposition Clinical Impression: Chronic abdominal pain Disposition: HOME SELF-CARE Condition: Good Instructions (If sedation given, give patient instructions): Chronic Abdominal Pain (ED) Additional Instructions: Follow-up with PCP. Report back to ER with any new or worsening symptoms. Is patient prescribed a controlled substance at d/c from ED?: No Referrals: Isi Carolina MD [Primary Care Provider] - 1-2 days Time of Disposition: 01:04
[2022-10-16 23:09] LABS: Basophils % (A) 0 %; Eosinophils # (A) 0.3 k/uL (0-0.7); Eosinophils % (A) 6 %; HCT 38.4 % (34.0-46.0); HGB 12.9 gm/dL (11.4-16.0); Lymphocytes % (A) 33 %; MCH 30.1 pg (25.0-35.0); MCHC 33.6 g/dL (31.0-37.0); MCV 89.7 fL (80.0-100.0); Mean Platelet Volume 8.8; Monocytes # (A) 0.2 k/uL (0-1.0); Monocytes % (A) 4 %; Neutrophils # (A) 3.4 k/uL (1.3-7.7); Neutrophils % (A) 55 %; Platelet Count 232 k/uL (150-450); RBC 4.27 m/uL (3.80-5.40); RDW 14.8 % (11.5-15.5); WBC 6.1 k/uL (3.8-10.6)
[2022-10-16 23:26] LABS: ALT 18 U/L (4-34); AST 19 U/L (14-36); African American GFR (CKD) >90 (>60 ml/min/1.73 sqM); Albumin 3.9 g/dL (3.5-5.0); Alkaline Phosphatase 66 U/L (38-126); Amylase 60 U/L (30-110); Anion Gap 8 mmol/L; Blood Urea Nitrogen 11 mg/dL (7-17); Calcium 10.2 mg/dL (8.4-10.2); Carbon Dioxide 22 mmol/L (22-30); Chloride 105 mmol/L (98-107); Glucose 234 mg/dL (74-99); Lipase 532 U/L (23-300); Non-African American GFR(CKD) >90 (>60 ml/min/1.73 sqM); Potassium 4.3 mmol/L (3.5-5.1); Sodium 135 mmol/L (137-145); Total Bilirubin 0.4 mg/dL (0.2-1.3)
[2022-10-17 00:46] LABS: Appearance,Urine Cloudy (Clear); Bacteria,Urine Moderate /hpf; Bilirubin,Urine Negative (Negative); Blood,Urine Small (Negative); Budding Yeast,Urine Occasional /hpf; Color,Urine Yellow; Glucose,Urine (UA) 4+ (Negative); Ketones,Urine Negative (Negative); Leukocyte Esterase,Urine Large (Negative); Mucus,Urine Occasional /hpf; Nitrite,Urine Negative (Negative); PH, Urine 6.5 (5.0-8.0); Protein,Urine Trace (Negative); RBC,Urine 6 /hpf (0-5); Specific Gravity,Urine 1.024 (1.001-1.035); Squamous Epithelial Cell,Urine 19 /hpf (0-4); Urobilinogen,Urine <2.0 mg/dL (<2.0); WBC,Urine 15 /hpf (0-5)
[2022-10-17] MEDS ORDERED: MAG HYDROX/AL HYDROX/SIMETH 30 ML, HYOSCYAMINE ELIXIR 10 ML, LIDOCAINE 2% GLYDO JELLY 1... PO STA ×3 (01:04)
[2022-10-17] MEDS ORDERED: FAMOTIDINE 20 MG/2 ML VIAL IV STA (01:04)
[2022-10-17] MEDS ORDERED: FAMOTIDINE 20 MG TAB PO STA (01:09)
[2022-10-17 01:37] VITALS: BP 127/74; PULSE 89; RESP 20
== END 2022-10-17 01:37 | disposition home or self-care (01) ==
LOC: EC 21:01
DX: G89.29 Other chronic pain (principal); R10.11 Right upper quadrant pain; E11.43 Type 2 diabetes mellitus with diabetic autonomic (poly)neuropathy; K31.84 Gastroparesis; J45.909 Unspecified asthma, uncomplicated; K21.9 Gastro-esophageal reflux disease without esophagitis; F32.A Depression, unspecified; F41.9 Anxiety disorder, unspecified; Z79.4 Long term (current) use of insulin; Z79.84 Long term (current) use of oral hypoglycemic drugs; Z79.899 Other long term (current) drug therapy; Z88.0 Allergy status to penicillin; Z91.038 Other insect allergy status; Z88.2 Allergy status to sulfonamides; Z91.030 Bee allergy status; Z91.040 Latex allergy status; Z91.018 Allergy to other foods; Z88.8 Allergy status to other drugs, medicaments and biological substances; Z91.09 Other allergy status, other than to drugs and biological substances
CPT/HCPCS: 80053; 82150; 83690; 85025; 99284; 96372 ×2; J1200; J1885; 36415; 81001; 81025

== ENCOUNTER 2022-10-18 11:50 | Inpatient (IN) | payer OTHER ==
[2022-10-18] MEDS ORDERED: diphenhydrAMINE 50 MG/ML 1 ML VIAL IVP STA (12:38)
[2022-10-18] MEDS ORDERED: PANTOPRAZOLE 40 MG/10 ML VIAL IVP STA (12:38)
[2022-10-18] MEDS ORDERED: SODIUM CHLORIDE 0.9% 500 ML 500 ML IV STA (12:38)
[2022-10-18] MEDS ORDERED: KETOROLAC 15 MG/ML 1 ML VIAL IVP STA (12:41)
--- NOTE | 2022-10-18 12:45 | ED ---
Abdominal Pain HPI - General Chief Complaint: Abdominal Pain Stated Complaint: Right side pain Time Seen by Provider: 10/18/22 12:19 Source: patient, RN notes reviewed, old records reviewed Mode of arrival: ambulatory Limitations: no limitations - History of Present Illness Initial Comments: 32-year-old female well known to the emergency room for chronic abdominal pain, returns to the emergency room today after being seen 2 days ago for abdominal pain. States last night developed right upper quadrant abdominal pain that now radiates to her right flank. Patient states that she believes she has a kidney stone. Denies any dysuria or hematuria. Denies any fevers. No vaginal bleeding or discharge. No pelvic pain. She is currently vomiting yellow bile. MD Complaint: abdominal pain -: days(s) (2) Location: RUQ Radiation: R flank Severity scale (1-10): 10 Consistency: constant Improves With: nothing Associated Symptoms: nausea, vomiting - Related Data Home Medications Medication Instructions Recorded Confirmed Omeprazole 20 mg PO BID 11/16/21 10/18/22 QUEtiapine FUMARATE [SEROquel XR] 600 mg PO HS 11/16/21 10/18/22 Acetaminophen [Tylenol Extra 500 mg PO Q4H PRN 03/30/22 10/18/22 Strength] Insulin Aspart [NovoLOG Flexpen] See Protocol SQ TID-W/MEALS PRN 03/30/22 10/18/22 Insulin Glargine,Hum.rec.anlog 45 units SQ DAILY 03/30/22 10/18/22 [Lantus Solostar Pen] Ondansetron Odt [Zofran ODT] 4 mg SL Q6H PRN 03/30/22 10/18/22 tiZANidine [Zanaflex] 4 mg PO BID PRN 03/30/22 10/18/22 Etonogestrel [Nexplanon] 68 mg INTRADERMA DIRECTED 06/22/22 10/18/22 traMADol HCl [Ultram] 50 mg PO Q8HR PRN 07/30/22 10/18/22 Albuterol Nebulized [Ventolin 2.5 mg INHALATION RT-Q4H PRN 09/18/22 10/18/22 Nebulized] Dicyclomine [Bentyl] 20 mg PO QID PRN 09/18/22 10/18/22 Insulin Aspart [NovoLOG Flexpen] 10 units SQ TID-W/MEALS 09/18/22 10/18/22 Lipase/Protease/Amylase [Zenpep Dr 2 cap PO TID-W/MEALS 09/18/22 10/18/22 5,000 Unit Capsule] Pioglitazone [Actos] 30 mg PO DAILY 09/18/22 10/18/22 Propranolol LA [Inderal LA] 60 mg PO HS 09/18/22 10/18/22 metFORMIN HCL [Glucophage] 1,000 mg PO BID 10/18/22 10/18/22 Previous Rx's Medication Instructions Recorded Ibuprofen [Motrin] 800 mg PO Q8HR PRN #30 tab 06/07/22 Lidocaine 5% Patch [Lidoderm 5% 1 patch TOPICAL DAILY PRN #7 patch 09/23/22 Patch] Allergies Allergy/AdvReac Type Severity Reaction Status Date / Time bee pollen Allergy Severe Anaphylaxis Verified 10/18/22 15:14 haloperidol lactate Allergy Severe QUIT Verified 10/18/22 15:14 [From Haldol] BREATHING latex Allergy Severe RASH-THROAT Verified 10/18/22 15:14 CLOSES [place] Allergy Anaphylaxis Verified 10/18/22 15:14 coconut Allergy Anaphylaxis Verified 10/18/22 15:14 pineapple Allergy Anaphylaxis Verified 10/18/22 15:14 spider venom Allergy Swelling Verified 10/18/22 15:14 Sulfa (Sulfonamide Allergy Anaphylaxis Verified 10/18/22 15:14 Antibiotics) venom-wasp Allergy Swelling Verified 10/18/22 15:14 venom-wasp protein Allergy Swelling Verified 10/18/22 15:14 promethazine HCl AdvReac Severe Nausea & Verified 10/18/22 15:14 [From Phenergan] Vomiting amoxicillin AdvReac Nausea & Verified 10/18/22 15:14 Vomiting ANTS AdvReac Mild Anaphylaxis Uncoded 10/18/22 15:14 Review of Systems ROS Statement: Those systems with pertinent positive or pertinent negative responses have been documented in the HPI. ROS Other: All systems not noted in ROS Statement are negative. Past Medical History Past Medical History: Asthma, Diabetes Mellitus, GERD/Reflux Additional Past Medical History / Comment(s): migraines, degenerative disk disease, endometriosis, lupus, pancreatitis, DM2- insulin, gastroparesis History of Any Multi-Drug Resistant Organisms: None Reported Past Surgical History: Cholecystectomy, Orthopedic Surgery Additional Past Surgical History / Comment(s): laparoscopc surgery for endometriosis, cyst removed from left foot, EGD, Past Anesthesia/Blood Transfusion Reactions: Previous Problems w/ Anesthesia Additional Past Anesthesia/Blood Transfusion Reaction / Comment(s): hard to wake up for 48-72 hours after laparoscopic surgery-was in hosp. for 3 days Past Psychological History: Anxiety, Depression, PTSD Smoking Status: Former smoker Past Alcohol Use History: None Reported Past Drug Use History: None Reported - Past Family History Mother Family Medical History: Cancer Additional Family Medical History / Comment(s): Migraines, pancreatic cancer, . Father Family Medical History: Coronary Artery Disease (CAD), Hypertension Additional Family Medical History / Comment(s): ddd, alcoholism & drug use General Exam Limitations: no limitations General appearance: alert, in no apparent distress Head exam: Present: atraumatic Eye exam: Present: normal appearance. Absent: scleral icterus, conjunctival injection, periorbital swelling Neck exam: Present: full ROM. Absent: meningismus Respiratory exam: Absent: respiratory distress, accessory muscle use Cardiovascular Exam: Present: tachycardia GI/Abdominal exam: Present: soft, tenderness (Right upper quadrant). Absent: distended, guarding, rebound, rigid Extremities exam: Present: full ROM, normal capillary refill. Absent: tenderness, pedal edema Back exam: Present: normal inspection, CVA tenderness (R). Absent: rash noted Neurological exam: Present: alert, oriented X3 Psychiatric exam: Present: normal affect, normal mood Skin exam: Present: warm, dry, normal color. Absent: cyanosis, diaphoretic, petechiae, pallor Course Vital Signs 10/18/22 10/18/22 10/18/22 11:58 12:43 14:53 Temperature 99.5 F 97.9 F Pulse Rate 100 86 79 Respiratory 18 18 18 Rate Blood Pressure 138/94 138/90 139/93 O2 Sat by Pulse 96 95 99 Oximetry Medical Decision Making - Medical Decision Making Was pt. sent in by a medical professional or institution (, PA, MACHINE ATTENDANT, urgent care, hospital, or assisted...) When possible be specific @ -No Did you speak to anyone other than the patient for history (EMS, parent, family, police, friend...)? What history was obtained from this source @ -No Did you review nursing and triage notes (agree or disagree)? Why? @ -I reviewed and agree with nursing and triage notes Were old charts reviewed (outside hosp., previous admission, EMS record, old EKG, old radiological studies, urgent care reports/EKG's, assisted records)? Report findings @ -ER visit from 2 days ago and previous labs Differential Diagnosis (chest pain, altered mental status, abdominal pain women, abdominal pain men, vaginal bleeding, weakness, fever, dyspnea, syncope, headache, dizziness, GI bleed, back pain, seizure, CVA, palpatations, mental health, musculoskeletal)? @ -Differential Abdominal Pain Women: Appendicitis, Cholecystitis, diverticulosis, ischemic bowel, pancreatitis, hepatitis, UTI, gastroenteritis, AAA, incarcerated hernia, bowel obstruction, constipation, inflammatory bowel, hepatitis, peptic ulcer disease, splenic infarction, perforated viscus, vulvitis, ovarian torsion, PID, kidney stone, placenta abruption, this is not meant to be an all-inclusive list EKG interpreted by me (3pts min.). @ -n/a X-rays interpreted by me (1pt min.). @ -None done CT interpreted by me (1pt min.). @ -None done U/S interpreted by me (1pt. min.). @ -None done What testing was considered but not performed or refused? (CT, X-rays, U/S, labs)? Why? @ -None What meds were considered but not given or refused? Why? @ -None Did you discuss the management of the patient with other professionals (professionals i.e. , PA, MACHINE ATTENDANT, lab, RT, psych nurse, social worker psychiatric, corporation lawyer, teacher, licensed mortgage loan officer, rn case manager)? Give summary @ -No Was smoking cessation discussed for >3mins.? @ -No Was critical care preformed (if so, how long)? @ -No Were there social determinants of health that impacted care today? How? (Homeles sness, low income, unemployed, alcoholism, drug addiction, transportation, low edu. Level, literacy, decrease access to med. care, [place] [facility], rehab)? @ -No Was there de-escalation of care discussed even if they declined (Discuss DNR or withdrawal of care, Hospice)? DNR status @ -No What co-morbidities impacted this encounter? (DM, HTN, Smoking, COPD, CAD, Cancer, CVA, ARF, Chemo, Hep., AIDS, mental health diagnosis, sleep apnea, morbid obesity)? @ -History of obesity, asthma, diabetes, GERD, migraines, endometriosis, lupus, pancreatitis, gastroparesis, anxiety, depression, PTSD surgical history cholecystectomy Was patient admitted / discharged? Hospital course, mention meds given and route, prescriptions, significant lab abnormalities, going to OR and other pertinent info. @ -Admitted 32-year-old female well known to the emergency room for chronic abdominal pain, returns to the emergency room today after being seen 2 days ago for abdominal pain. States last night developed right upper quadrant abdominal pain that now radiates to her right flank. Patient states that she believes she has a kidney stone. Denies any dysuria or hematuria. Denies any fevers. No vaginal bleeding or discharge. No pelvic pain. She is currently vomiting yellow bile. Patient seen in the emergency room 2 days ago with complaints of right upper quadrant pain. She does have history of chronic abdominal pain. At that time she admitted to nausea without vomiting. No fever or chills she has seen pain management for chronic abdominal pain. Lab work was performed showing no cytosis or anemia. Lipase 532 a history of elevated lipase levels. Discharged to follow up with her pain management doctor. Diagnosis chronic abdominal pain. Patient vomiting yellow bilious fluids upon arrival. Patient hemodynamically stable CBC unremarkable. Glucose 234, lactic acid is negative. Lipase 1843 up from 2 days ago at 532. Amylase 80. Patient was given IV fluids, Benadryl for nausea, Protonix and Toradol for pain. Patient states she did not receive any pain relief therefore Dilaudid was provided. Patient continues to have abdominal pain right upper quadrant radiating into her right mid back. She will be admitted for elevated lipase levels. Case discussed with Dr. Ray Undiagnosed new problem with uncertain prognosis? @ -No Drug Therapy requiring intensive monitoring for toxicity (Heparin, Nitro, Insulin, Cardizem)? @ -No Were any procedures done? @ -No Diagnosis/symptom? @ -Chronic Abdominal pain, elevated lipase levels Acute, or Chronic, or Acute on Chronic? @ -Acute on chronic Uncomplicated (without systemic symptoms) or Complicated (systemic symptoms)? @ -Complicated Side effects of treatment? @ -No Exacerbation, Progression, or Severe Exacerbation? @ -No Poses a threat to life or bodily function? How? (Chest pain, [place], [place], pneumonia, PE, COPD, DKA, ARF, appy, cholecystitis, CVA, Diverticulitis, Homicidal, Suicidal, threat to staff... and all critical care pts) @ -No - Lab Data Result diagrams: 10/18/22 12:54 10/18/22 12:54 Lab Results 10/18/22 10/18/22 10/18/22 Range/Units 12:54 12:54 12:54 WBC 7.5 (3.8-10.6) k/uL RBC 4.52 (3.80-5.40) m/uL Hgb 13.0 (11.4-16.0) gm/dL Hct 41.2 (34.0-46.0) % MCV 91.2 (80.0-100.0) fL MCH 28.8 (25.0-35.0) pg MCHC 31.6 (31.0-37.0) g/dL RDW 14.5 (11.5-15.5) % Plt Count 276 (150-450) k/uL MPV 8.5 Neutrophils % 77 % Lymphocytes % 17 % Monocytes % 3 % Eosinophils % 2 % Basophils % 0 % Neutrophils # 5.8 (1.3-7.7) k/uL Lymphocytes # 1.3 (1.0-4.8) k/uL Monocytes # 0.2 (0-1.0) k/uL Eosinophils # 0.1 (0-0.7) k/uL Basophils # 0.0 (0-0.2) k/uL Sodium 135 L (137-145) mmol/L Potassium 4.6 (3.5-5.1) mmol/L Chloride 104 (98-107) mmol/L Carbon Dioxide 18 L (22-30) mmol/L Anion Gap 13 mmol/L BUN 12 (7-17) mg/dL Creatinine 0.60 (0.52-1.04) mg/dL Est GFR (CKD-EPI)AfAm >90 (>60 ml/min/1.73 sqM) Est GFR (CKD-EPI)NonAf >90 (>60 ml/min/1.73 sqM) Glucose 234 H (74-99) mg/dL Plasma Lactic Acid Aurelio 1.9 (0.7-2.0) mmol/L Calcium 10.1 (8.4-10.2) mg/dL Total Bilirubin 0.6 (0.2-1.3) mg/dL AST 23 (14-36) U/L ALT 18 (4-34) U/L Alkaline Phosphatase 60 (38-126) U/L Total Protein 7.4 (6.3-8.2) g/dL Albumin 4.1 (3.5-5.0) g/dL Amylase 80 (30-110) U/L Lipase 1843 H (23-300) U/L Urine Color Urine Appearance (Clear) Urine pH (5.0-8.0) Ur Specific [place] (1.001-1.035) Urine Protein (Negative) Urine Glucose (UA) (Negative) Urine Ketones (Negative) Urine Blood (Negative) Urine Nitrite (Negative) Urine Bilirubin (Negative) Urine Urobilinogen (<2.0) mg/dL Ur Leukocyte Esterase (Negative) Urine RBC (0-5) /hpf Urine WBC (0-5) /hpf Ur Squamous Epith Cells (0-4) /hpf Urine Bacteria (None) /hpf Urine Mucus (None) /hpf Urine Yeast (Budding) (None) /hpf 10/18/22 Range/Units 14:44 WBC (3.8-10.6) k/uL RBC (3.80-5.40) m/uL Hgb (11.4-16.0) gm/dL Hct (34.0-46.0) % MCV (80.0-100.0) fL MCH (25.0-35.0) pg MCHC (31.0-37.0) g/dL RDW (11.5-15.5) % Plt Count (150-450) k/uL MPV Neutrophils % % Lymphocytes % % Monocytes % % Eosinophils % % Basophils % % Neutrophils # (1.3-7.7) k/uL Lymphocytes # (1.0-4.8) k/uL Monocytes # (0-1.0) k/uL Eosinophils # (0-0.7) k/uL Basophils # (0-0.2) k/uL Sodium (137-145) mmol/L Potassium (3.5-5.1) mmol/L Chloride (98-107) mmol/L Carbon Dioxide (22-30) mmol/L Anion Gap mmol/L BUN (7-17) mg/dL Creatinine (0.52-1.04) mg/dL Est GFR (CKD-EPI)AfAm (>60 ml/min/1.73 sqM) Est GFR (CKD-EPI)NonAf (>60 ml/min/1.73 sqM) Glucose (74-99) mg/dL Plasma Lactic Acid Aurelio (0.7-2.0) mmol/L Calcium (8.4-10.2) mg/dL Total Bilirubin (0.2-1.3) mg/dL AST (14-36) U/L ALT (4-34) U/L Alkaline Phosphatase (38-126) U/L Total Protein (6.3-8.2) g/dL Albumin (3.5-5.0) g/dL Amylase (30-110) U/L Lipase (23-300) U/L Urine Color Yellow Urine Appearance Cloudy H (Clear) Urine pH 6.0 (5.0-8.0) Ur Specific [place] 1.023 (1.001-1.035) Urine Protein 1+ H (Negative) Urine Glucose (UA) 4+ H (Negative) Urine Ketones 1+ H (Negative) Urine Blood Large H (Negative) Urine Nitrite Negative (Negative) Urine Bilirubin Negative (Negative) Urine Urobilinogen <2.0 (<2.0) mg/dL Ur Leukocyte Esterase Large H (Negative) Urine RBC 159 H (0-5) /hpf Urine WBC 36 H (0-5) /hpf Ur Squamous Epith Cells 20 H (0-4) /hpf Urine Bacteria Moderate H (None) /hpf Urine Mucus Few H (None) /hpf Urine Yeast (Budding) Rare H (None) /hpf Disposition Clinical Impression: Elevated lipase Disposition: ADMITTED IP TO THIS [facility] Decision Date: 10/18/22 Decision Time: 14:13
[2022-10-18 13:04] LABS: Basophils % (A) 0 %; Eosinophils # (A) 0.1 k/uL (0-0.7); Eosinophils % (A) 2 %; HCT 41.2 % (34.0-46.0); Lymphocytes # (A) 1.3 k/uL (1.0-4.8); Lymphocytes % (A) 17 %; MCH 28.8 pg (25.0-35.0); MCHC 31.6 g/dL (31.0-37.0); MCV 91.2 fL (80.0-100.0); Mean Platelet Volume 8.5; Monocytes # (A) 0.2 k/uL (0-1.0); Monocytes % (A) 3 %; Neutrophils # (A) 5.8 k/uL (1.3-7.7); Neutrophils % (A) 77 %; Platelet Count 276 k/uL (150-450); RBC 4.52 m/uL (3.80-5.40); RDW 14.5 % (11.5-15.5); WBC 7.5 k/uL (3.8-10.6)
[2022-10-18 13:20] LABS: ALT 18 U/L (4-34); AST 23 U/L (14-36); African American GFR (CKD) >90 (>60 ml/min/1.73 sqM); Albumin 4.1 g/dL (3.5-5.0); Alkaline Phosphatase 60 U/L (38-126); Amylase 80 U/L (30-110); Anion Gap 13 mmol/L; Blood Urea Nitrogen 12 mg/dL (7-17); Calcium 10.1 mg/dL (8.4-10.2); Carbon Dioxide 18 mmol/L (22-30); Chloride 104 mmol/L (98-107); Glucose 234 mg/dL (74-99); Lipase 1843 U/L (23-300); Non-African American GFR(CKD) >90 (>60 ml/min/1.73 sqM); Potassium 4.6 mmol/L (3.5-5.1); Sodium 135 mmol/L (137-145); Total Bilirubin 0.6 mg/dL (0.2-1.3)
[2022-10-18 13:22] LABS: Total Protein 7.4 g/dL (6.3-8.2)
[2022-10-18] MEDS ORDERED: SODIUM CHLORIDE 0.9% 1,000 ML IV ONE (13:30)
[2022-10-18] MEDS ORDERED: NALOXONE 0.4 MG/ML 1 ML VIAL IV PRN (14:15)
[2022-10-18] MEDS: HYDROmorphone 0.5 MG/0.5 ML SYRINGE IVP STA ×2 (14:38→14:42)
[2022-10-18] MEDS ORDERED: HYDROmorphone 0.5 MG/0.5 ML SYRINGE IVP STA (14:43)
[2022-10-18] MEDS: SODIUM CHLORIDE 0.9% 1,000 ML IV SCH (14:53)
[2022-10-18 14:55] LABS: Appearance,Urine Cloudy (Clear); Bacteria,Urine Moderate /hpf; Bilirubin,Urine Negative (Negative); Blood,Urine Large (Negative); Budding Yeast,Urine Rare /hpf; Color,Urine Yellow; Glucose,Urine (UA) 4+ (Negative); Ketones,Urine 1+ (Negative); Leukocyte Esterase,Urine Large (Negative); Mucus,Urine Few /hpf; Nitrite,Urine Negative (Negative); Protein,Urine 1+ (Negative); RBC,Urine 159 /hpf (0-5); Specific Gravity,Urine 1.023 (1.001-1.035); Squamous Epithelial Cell,Urine 20 /hpf (0-4); Urobilinogen,Urine <2.0 mg/dL (<2.0); WBC,Urine 36 /hpf (0-5)
[2022-10-18] MEDS ORDERED: DICYCLOMINE 20 MG TAB PO PRN (16:28)
[2022-10-18] MEDS ORDERED: ALBUTEROL NEBULIZED 2.5 MG/3 ML INHALATION PRN (16:28)
[2022-10-18] MEDS ORDERED: traMADol 50 MG TAB PO PRN (16:28)
[2022-10-18] MEDS ORDERED: ACETAMINOPHEN TAB 500 MG TAB PO PRN (16:28)
[2022-10-18] MEDS ORDERED: DEXTROSE 50% SYRINGE 50 ML IVP PRN ×2 (16:30)
[2022-10-18] MEDS: KETOROLAC 15 MG/ML 1 ML VIAL IVP PRN (17:06)
[2022-10-18 17:44] LABS: Glucose,Whole Blood 161 mg/dL (70-110)
[2022-10-18] MEDS: INSULIN ASPART (NovoLOG) 100 UNIT/ML VIAL SQ SCH ×3 (17:52→20:07)
[2022-10-18] MEDS: LIPASE 5,000/PROTEASE 17,000/AMYLASE 24,000 PO SCH (18:05)
[2022-10-18] MEDS: HYDROmorphone 0.5 MG/0.5 ML SYRINGE IVP PRN ×2 (18:06→21:36)
[2022-10-18 20:01] LABS: Glucose,Whole Blood 150 mg/dL (70-110)
[2022-10-18] MEDS: QUEtiapine 100 MG TAB PO SCH (20:05)
[2022-10-18] MEDS: ONDANSETRON 4 MG/2 ML VIAL IVP PRN (20:05)
[2022-10-18] MEDS: PROPRANOLOL LA 60 MG CAP.SA.24H PO SCH (20:07)
--- NOTE | 2022-10-18 23:50 | P.HPIM ---
History of Present Illness H&P Date: 10/18/22 Chief Complaint: Abdominal pain Patient is a 32-year-old female with a known history of diabetes type 2, asthma, history of pancreatitis, migraine headaches, endometriosis, lupus and possible gastroparesis, anxiety/depression, PTSD and prior history of smoking and vapor use presents to ER with complaints of abdominal pain. Patient states that she started having abdominal pain around 8 PM yesterday. Pain started in the right upper quadrant and radiating to the back to the flank region and also in the epigastric region. Patient thought it may be a kidney stone. Otherwise denies any complaints of fever or chills. No dysuria or hematuria. Patient did have nausea and episodes of vomiting with yellowish bile. No cough or sputum production. No chest pain or shortness of breath. Patient states that today is her birthday and ate a cupcake and a sandwich. Denies any alcohol intake. Laboratory showed WBC 7.4 hemoglobin 13.0 and platelets 276 Sodium 135 potassium 4.6 chloride 104 bicarb is 18 BUN 12 and creatinine 0.6 and blood sugar is 234. Serum lipase level was 1843 and amylase 80 level is not elevated. Bilirubin level is 0.6 and urinalysis showed cloudy with 1+ protein 4+ glucose 1+ ketones large blood large leukocyte esterase and elevated RBCs and WBCs. Review of Systems Constitutional: Patient denies any fever or chills . no Generalized weakness. Abdomen: Patient is complaining of nausea vomiting and abdominal pain. No diarrhea. Cardiovascular: Patient denies any chest pain or short of breath no palpitations. Respiratory: patient denied any cough . no sputum production. No shortness of breath Neurologic: Patient denied any numbness or tingling headache. Musculoskeletal: Patient denies any complaints of joint swelling or deformity. Skin: Negative Psychiatric: Negative Endocrine: No heat or cold intolerance. No recent weight gain. Genitourinary: No dysuria or hematuria. All other 14 point ROS negative except the above Past Medical History Past Medical History: Asthma, Diabetes Mellitus, GERD/Reflux Additional Past Medical History / Comment(s): migraines, degenerative disk disease, endometriosis, lupus, pancreatitis, DM2- insulin, gastroparesis History of Any Multi-Drug Resistant Organisms: None Reported Past Surgical History: Cholecystectomy, Orthopedic Surgery Additional Past Surgical History / Comment(s): laparoscopc surgery for endo metriosis, cyst removed from left foot, EGD, Past Anesthesia/Blood Transfusion Reactions: Previous Problems w/ Anesthesia Additional Past Anesthesia/Blood Transfusion Reaction / Comment(s): hard to wake up for 48-72 hours after laparoscopic surgery-was in hosp. for 3 days Past Psychological History: Anxiety, Depression, PTSD Smoking Status: Former smoker Past Alcohol Use History: None Reported Past Drug Use History: None Reported - Past Family History Mother Family Medical History: Cancer Additional Family Medical History / Comment(s): Migraines, pancreatic cancer, . Father Family Medical History: Coronary Artery Disease (CAD), Hypertension Additional Family Medical History / Comment(s): ddd, alcoholism & drug use Medications and Allergies Home Medications Medication Instructions Recorded Confirmed Type Omeprazole 20 mg PO BID 11/16/21 10/18/22 History QUEtiapine FUMARATE [SEROquel XR] 600 mg PO HS 11/16/21 10/18/22 History Acetaminophen [Tylenol Extra 500 mg PO Q4H PRN 03/30/22 10/18/22 History Strength] Insulin Aspart [NovoLOG Flexpen] See Protocol SQ TID-W/MEALS PRN 03/30/22 10/18/22 History Insulin Glargine,Hum.rec.anlog 45 units SQ DAILY 03/30/22 10/18/22 History [Lantus Solostar Pen] Ondansetron Odt [Zofran ODT] 4 mg SL Q6H PRN 03/30/22 10/18/22 History tiZANidine [Zanaflex] 4 mg PO BID PRN 03/30/22 10/18/22 History Ibuprofen [Motrin] 800 mg PO Q8HR PRN #30 tab 06/07/22 10/18/22 Rx Etonogestrel [Nexplanon] 68 mg INTRADERMA DIRECTED 06/22/22 10/18/22 History traMADol HCl [Ultram] 50 mg PO Q8HR PRN 07/30/22 10/18/22 History Albuterol Nebulized [Ventolin 2.5 mg INHALATION RT-Q4H PRN 09/18/22 10/18/22 History Nebulized] Dicyclomine [Bentyl] 20 mg PO QID PRN 09/18/22 10/18/22 History Insulin Aspart [NovoLOG Flexpen] 10 units SQ TID-W/MEALS 09/18/22 10/18/22 History Lipase/Protease/Amylase [Zenpep Dr 2 cap PO TID-W/MEALS 09/18/22 10/18/22 History 5,000 Unit Capsule] Pioglitazone [Actos] 30 mg PO DAILY 09/18/22 10/18/22 History Propranolol LA [Inderal LA] 60 mg PO HS 09/18/22 10/18/22 History Lidocaine 5% Patch [Lidoderm 5% 1 patch TOPICAL DAILY PRN #7 patch 09/23/22 10/18/22 Rx Patch] metFORMIN HCL [Glucophage] 1,000 mg PO BID 10/18/22 10/18/22 History Allergies Allergy/AdvReac Type Severity Reaction Status Date / Time bee pollen Allergy Severe Anaphylaxis Verified 10/18/22 15:14 haloperidol lactate Allergy Severe QUIT Verified 10/18/22 15:14 [From Haldol] BREATHING latex Allergy Severe RASH-THROAT Verified 10/18/22 15:14 CLOSES [place] Allergy Anaphylaxis Verified 10/18/22 15:14 coconut Allergy Anaphylaxis Verified 10/18/22 15:14 pineapple Allergy Anaphylaxis Verified 10/18/22 15:14 spider venom Allergy Swelling Verified 10/18/22 15:14 Sulfa (Sulfonamide Allergy Anaphylaxis Verified 10/18/22 15:14 Antibiotics) venom-wasp Allergy Swelling Verified 10/18/22 15:14 venom-wasp protein Allergy Swelling Verified 10/18/22 15:14 promethazine HCl AdvReac Severe Nausea & Verified 10/18/22 15:14 [From Phenergan] Vomiting amoxicillin AdvReac Nausea & Verified 10/18/22 15:14 Vomiting ANTS AdvReac Mild Anaphylaxis Uncoded 10/18/22 15:14 Physical Exam Vitals: Vital Signs Temp Pulse Pulse Resp BP BP Pulse Ox 10/18/22 15:57 97.9 F 85 14 146/83 98 10/18/22 14:53 79 18 139/93 99 10/18/22 12:43 97.9 F 86 18 138/90 95 10/18/22 11:58 99.5 F 100 18 138/94 96 Intake and Output 10/18/22 10/18/22 10/18/22 06:59 14:59 22:59 Other: Weight 104.326 kg PHYSICAL EXAMINATION: Patient is lying in the bed comfortably, no acute distress, awake alert and oriented.. HEENT: Normocephalic. Neck is supple. Pupils reactive. Nostrils clear. Oral cavity is moist. Neck reveals no JVD, carotid bruits, or thyromegaly. CHEST EXAMINATION: Trachea is central. Symmetrical expansion. Lung arroyo clear to auscultation and percussion. CARDIAC: Normal S1, S2 with no gallops. No murmurs ABDOMEN: Soft. Bowel sounds present. Epigastric and right upper quadrant tenderness.. No organomegaly. No abdominal bruits. Extremities: reveal no edema. No clubbing or cyanosis Neurologically awake, alert, oriented x3 with well-coordinated movements. No focal deficits noted Skin: No rash or skin lesions. Psychiatric: Coperative. Nonsuicidal, anxious Musculoskeletal: No joint swelling or deformity. Normal range of motion. Results CBC & Chem 7: 10/18/22 12:54 10/18/22 12:54 Labs: Abnormal Lab Results - Last 24 Hours (Table) 10/18/22 10/18/22 Range/Units 12:54 14:44 Sodium 135 L (137-145) mmol/L Carbon Dioxide 18 L (22-30) mmol/L Glucose 234 H (74-99) mg/dL Lipase 1843 H (23-300) U/L Urine Appearance Cloudy H (Clear) Urine Protein 1+ H (Negative) Urine Glucose (UA) 4+ H (Negative) Urine Ketones 1+ H (Negative) Urine Blood Large H (Negative) Ur Leukocyte Esterase Large H (Negative) Urine RBC 159 H (0-5) /hpf Urine WBC 36 H (0-5) /hpf Ur Squamous Epith Cells 20 H (0-4) /hpf Urine Bacteria Moderate H (None) /hpf Urine Mucus Few H (None) /hpf Urine Yeast (Budding) Rare H (None) /hpf Thrombosis Risk Factor Assmnt - DVT/VTE Prophylaxis DVT/VTE Prophylaxis: Pharmacologic Prophylaxis ordered Assessment and Plan Assessment: Acute on chronic recurrent pancreatitis Intractable nausea and vomiting and abdominal pain Possible urinary tract infection Hypertriglyceridemia Hyperglycemia uncontrolled diabetes type 2 insulin-dependent GERD History of migraine headaches Degenerative disc disease Lupus Endometriosis Possible diabetic gastroparesis Anxiety/depression and PTSD Prior history of smoking and vapor use. DVT prophylaxis with heparin subcu Plan: Patient will be continued on IV hydration with normal saline and symptomatic management for nausea and vomiting. Nothing by mouth until symptomatic improvement. Patient was started on antibiotics ceftriaxone and urine culture will be sent. Follow-up ultrasound renal. Continue with pain management with Dilaudid and continue with other home medications. Follow-up closely. Insulin sliding scale and insulin regimen and titrate dose as needed. Time with Patient: Greater than 30
[2022-10-19] MEDS: HYDROmorphone 0.5 MG/0.5 ML SYRINGE IVP PRN ×6 (00:24→20:14)
[2022-10-19] MEDS: SODIUM CHLORIDE 0.9% 1,000 ML IV SCH ×3 (00:25→20:14)
[2022-10-19] MEDS: KETOROLAC 15 MG/ML 1 ML VIAL IVP PRN ×3 (01:29→20:16)
[2022-10-19 06:21] LABS: Glucose,Whole Blood 140 mg/dL (70-110)
[2022-10-19] MEDS: INSULIN ASPART (NovoLOG) 100 UNIT/ML VIAL SQ SCH ×7 (06:26→21:52)
[2022-10-19] MEDS: PANTOPRAZOLE 40 MG/10 ML VIAL IVP SCH (08:35)
[2022-10-19] MEDS: QUEtiapine 100 MG TAB PO SCH ×2 (08:35→20:23)
[2022-10-19] MEDS: INSULIN DETEMIR (LEVEMIR) 100 UNIT/ML SYR SQ SCH (08:36)
[2022-10-19] MEDS: LIPASE 5,000/PROTEASE 17,000/AMYLASE 24,000 PO SCH ×3 (08:36→17:42)
--- NOTE | 2022-10-19 09:08 | US ---
EXAMINATION TYPE: US renals and bladder DATE OF EXAM: 10/19/2022 COMPARISON: KUB, US, CT CLINICAL INDICATION: Female, 32 years old with history of rt Flank pain; Flank pain EXAM MEASUREMENTS: Right Kidney: 10.9 x 4.7 x 5.6 cm Left Kidney: 10.4 x 6.0 x 5.2 cm Right Kidney: No hydronephrosis or masses seen, inferior pole gassed out Left Kidney: No hydronephrosis or masses seen Bladder: Not visualized, pt voided just prior to exam IMPRESSION: A limited exam demonstrates no diagnostic evidence of hydronephrosis or nephrolithiasis.
[2022-10-19 09:31] LABS: Basophils # (A) 0.02 X 10*3/uL (0.00-0.10); Basophils % (A) 0.4 %; Eosinophils % (A) 3.9 %; HCT 34.7 % (37.2-46.3); HGB 11.5 d/dL (12.0-15.0); Lymphocytes # (A) 1.99 X 10*3/uL (0.90-5.00); Lymphocytes % (A) 38.4 %; MCH 30.3 pg (27.0-32.0); MCHC 33.1 d/dL (32.0-37.0); MCV 91.6 FL (80.0-97.0); Mean Platelet Volume 10.9 FL (9.5-12.2); Monocytes # (A) 0.37 X 10*3/uL (0.20-1.00); Monocytes % (A) 7.1 %; NRBC Per 100 WBC 0 X 10*3/uL (0.00-0.01); Neutrophils # (A) 2.58 X 10*3/uL (1.80-7.70); Neutrophils % (A) 49.8 %; Platelet Count 228 X 10*3/uL (140-440); RBC 3.79 X 10*6/uL (4.10-5.20); RDW 14.2 % (11.5-14.5); WBC 5.18 X 10*3/uL (4.50-10.00)
[2022-10-19 10:27] LABS: Blood Urea Nitrogen 6.3 mg/dL (9.0-27.0); Chloride 106 mmol/L (96-109); Glucose 148 mg/dL (70-110); Lipase 433 U/L (14-63); Potassium 3.9 mmol/L (3.5-5.5); Sodium 136 mmol/L (135-145)
[2022-10-19 10:28] LABS: ALT 12 U/L (8-44); AST 12 U/L (13-35); Albumin 3.5 d/dL (3.8-4.9); Albumin/Globulin Ratio 1.46 Ratio (1.60-3.17); Alkaline Phosphatase 39 U/L (41-126); Calcium 9.3 mg/dL (8.7-10.3); Carbon Dioxide 18.5 mmol/L (21.6-31.8); Globulin 2.4 d/dL (1.6-3.3); Total Bilirubin <0.2 mg/dL (0.3-1.2); Total Protein 5.9 d/dL (6.2-8.2)
[2022-10-19] MEDS: diphenhydrAMINE 50 MG/ML 1 ML VIAL IVP PRN ×3 (11:37→23:22)
[2022-10-19 12:19] LABS: Glucose,Whole Blood 163 mg/dL (70-110)
[2022-10-19] MEDS: ONDANSETRON 4 MG/2 ML VIAL IVP PRN ×2 (12:23→20:15)
[2022-10-19] MEDS ORDERED: HYDROcodone/APAP 5-325MG 1 EACH TAB PO PRN (16:04)
--- NOTE | 2022-10-19 16:08 | P.PN ---
Subjective Progress Note Date: 10/19/22 Patient is a 32-year-old female with a known history of diabetes type 2, asthma, history of pancreatitis, migraine headaches, endometriosis, lupus and possible gastroparesis, anxiety/depression, PTSD and prior history of smoking and vapor use presents to ER with complaints of abdominal pain. Patient states that she started having abdominal pain around 8 PM yesterday. Pain started in the right upper quadrant and radiating to the back to the flank region and also in the epigastric region. Patient thought it may be a kidney stone. Otherwise denies any complaints of fever or chills. No dysuria or hematuria. Patient did have nausea and episodes of vomiting with yellowish bile. No cough or sputum production. No chest pain or shortness of breath. Patient states that today is her birthday and ate a cupcake and a sandwich. Denies any alcohol intake. Laboratory showed WBC 7.4 hemoglobin 13.0 and platelets 276 Sodium 135 potassium 4.6 chloride 104 bicarb is 18 BUN 12 and creatinine 0.6 and blood sugar is 234. Serum lipase level was 1843 and amylase 80 level is not elevated. Bilirubin level is 0.6 and urinalysis showed cloudy with 1+ protein 4+ glucose 1+ ketones large blood large leukocyte esterase and elevated RBCs and WBCs. 10/19/2022 Patient is seen and evaluated in follow-up today continuing to report abdominal pain requesting IV Benadryl to go along with her IV pain medications that she reports her pain is not currently controlled. Patient not eating and will start clear liquids and advance as tolerated. Lipase improved today at 433 and maintained on gentle hydration. Encouraged small oral intake and increased activity as tolerated. Patient is currently afebrile with no reports of chest pain or shortness of breath noted. Patient will have follow-up labs and enco uraged oral intake and if tolerating will slowly advance. Recommend outpatient follow-up with GI. Review of systems: Constitutional: No reports of fatigue, fever, or chills Cardiovascular: No reports of chest pain or palpitations Respiratory: No reports of shortness of breath or cough GI: reports of nausea, no vomiting, or diarrhea, reports continued severe abdominal pain : No reports of dysuria or retention Neurovascular: No reports of weakness or numbness All medications have been reviewed Physical exam: Patient is lying in the bed comfortably,, awake alert and oriented.. HEENT: Normocephalic. Neck is supple. Pupils reactive. Nostrils clear. Oral cavity is moist. Neck reveals no JVD, carotid bruits, or thyromegaly. CHEST EXAMINATION: Trachea is central. Symmetrical expansion. Lung arroyo clear to auscultation and percussion. CARDIAC: Normal S1, S2 with no gallops. No murmurs ABDOMEN: Soft. obese. Bowel sounds present. Epigastric and right upper quadrant tenderness.. No organomegaly. No abdominal bruits. Extremities: reveal no edema. No clubbing or cyanosis Neurologically awake, alert, oriented x3 with well-coordinated movements. No focal deficits noted Skin: No rash or skin lesions. Psychiatric: Coperative. Nonsuicidal, anxious Musculoskeletal: No joint swelling or deformity. Normal range of motion. Assessment: Acute on chronic recurrent pancreatitis Intractable nausea and vomiting and abdominal pain Possible urinary tract infection, present on admission Hypertriglyceridemia Hyperglycemia uncontrolled diabetes type 2 insulin-dependent GERD History of migraine headaches Degenerative disc disease Lupus Endometriosis Possible diabetic gastroparesis Anxiety/depression and PTSD Prior history of smoking and vapor use. DVT prophylaxis with heparin subcu Plan: Patient will be continued on IV hydration with normal saline and symptomatic management for nausea and vomiting. patient reports has not been eating and will trial clear liquids and may slowly advance as tolerated. Continue with antinausea medications as well as pain management. Recommend limiting IV narcotic use as patient requests it. Patient also requesting IV Benadryl Patient continued on IV ceftriaxone for possible urinary tract infection, possibly asymptomatic bacteriuria as patient is not reporting any pain or burning or frequency with urination Continue with pain management with Dilaudid and continue with other home medications. adjusted the Dilaudid to every 4 hours as patient has been requesting it [id number] Encouraged increased activity as tolerated Follow-up lipase significantly improved and will follow-up with labs in the morning Possible discharge in the next 24 hours The impression and plan of care has been dictated by My Luz, Nurse Practitioner as directed. MD Coco I have performed a history and examination and MDM of this patient, discussed the same with the dictator, and agree with the dictator's assessment and plan as written ,documented as a scribe. Based on total visit time, I have performed more than 50% of the visit. Objective - Vital Signs Vital signs: Vital Signs Temp 98 F 10/19/22 07:00 Pulse 88 10/19/22 08:00 Resp 16 10/19/22 08:00 BP 112/76 10/19/22 07:00 Pulse Ox 98 10/19/22 07:00 FiO2 Intake & Output 10/18/22 10/19/22 10/19/22 18:59 06:59 18:59 Weight 104.326 kg Other: Voiding Method Toilet Toilet # Voids 2 - Labs CBC & Chem 7: 10/19/22 06:09 10/19/22 06:09 Labs: Abnormal Lab Results - Last 24 Hours (Table) 10/18/22 10/18/22 10/18/22 Range/Units 12:54 14:44 17:41 RBC (4.10-5.20) X 10*6/uL Hgb (12.0-15.0) d/dL Hct (37.2-46.3) % Sodium 135 L (137-145) mmol/L Carbon Dioxide 18 L (22-30) mmol/L BUN (9.0-27.0) mg/dL BUN/Creatinine Ratio (12.00-20.00) Ratio Glucose 234 H (74-99) mg/dL POC Glucose (mg/dL) 161 H (70-110) mg/dL Total Bilirubin (0.3-1.2) mg/dL AST (13-35) U/L Alkaline Phosphatase (41-126) U/L Total Protein (6.2-8.2) d/dL Albumin (3.8-4.9) d/dL Albumin/Globulin Ratio (1.60-3.17) Ratio Lipase 1843 H (23-300) U/L Urine Appearance Cloudy H (Clear) Urine Protein 1+ H (Negative) Urine Glucose (UA) 4+ H (Negative) Urine Ketones 1+ H (Negative) Urine Blood Large H (Negative) Ur Leukocyte Esterase Large H (Negative) Urine RBC 159 H (0-5) /hpf Urine WBC 36 H (0-5) /hpf Ur Squamous Epith Cells 20 H (0-4) /hpf Urine Bacteria Moderate H (None) /hpf Urine Mucus Few H (None) /hpf Urine Yeast (Budding) Rare H (None) /hpf 10/18/22 10/19/22 10/19/22 Range/Units 20:00 06:09 06:09 RBC 3.79 L (4.10-5.20) X 10*6/uL Hgb 11.5 L (12.0-15.0) d/dL Hct 34.7 L (37.2-46.3) % Sodium (137-145) mmol/L Carbon Dioxide 18.5 L (22-30) mmol/L BUN 6.3 L (9.0-27.0) mg/dL BUN/Creatinine Ratio 10.50 L (12.00-20.00) Ratio Glucose 148 H (74-99) mg/dL POC Glucose (mg/dL) 150 H (70-110) mg/dL Total Bilirubin <0.2 L (0.3-1.2) mg/dL AST 12 L (13-35) U/L Alkaline Phosphatase 39 L (41-126) U/L Total Protein 5.9 L (6.2-8.2) d/dL Albumin 3.5 L (3.8-4.9) d/dL Albumin/Globulin Ratio 1.46 L (1.60-3.17) Ratio Lipase 433 H (23-300) U/L Urine Appearance (Clear) Urine Protein (Negative) Urine Glucose (UA) (Negative) Urine Ketones (Negative) Urine Blood (Negative) Ur Leukocyte Esterase (Negative) Urine RBC (0-5) /hpf Urine WBC (0-5) /hpf Ur Squamous Epith Cells (0-4) /hpf Urine Bacteria (None) /hpf Urine Mucus (None) /hpf Urine Yeast (Budding) (None) /hpf 10/19/22 10/19/22 Range/Units 06:19 12:18 RBC (4.10-5.20) X 10*6/uL Hgb (12.0-15.0) d/dL Hct (37.2-46.3) % Sodium (137-145) mmol/L Carbon Dioxide (22-30) mmol/L BUN (9.0-27.0) mg/dL BUN/Creatinine Ratio (12.00-20.00) Ratio Glucose (74-99) mg/dL POC Glucose (mg/dL) 140 H 163 H (70-110) mg/dL Total Bilirubin (0.3-1.2) mg/dL AST (13-35) U/L Alkaline Phosphatase (41-126) U/L Total Protein (6.2-8.2) d/dL Albumin (3.8-4.9) d/dL Albumin/Globulin Ratio (1.60-3.17) Ratio Lipase (23-300) U/L Urine Appearance (Clear) Urine Protein (Negative) Urine Glucose (UA) (Negative) Urine Ketones (Negative) Urine Blood (Negative) Ur Leukocyte Esterase (Negative) Urine RBC (0-5) /hpf Urine WBC (0-5) /hpf Ur Squamous Epith Cells (0-4) /hpf Urine Bacteria (None) /hpf Urine Mucus (None) /hpf Urine Yeast (Budding) (None) /hpf
[2022-10-19 17:15] LABS: Glucose,Whole Blood 150 mg/dL (70-110)
[2022-10-19] MEDS: PROPRANOLOL LA 60 MG CAP.SA.24H PO SCH (20:23)
[2022-10-19 21:48] LABS: Glucose,Whole Blood 191 mg/dL (70-110)
[2022-10-20] MEDS: HYDROmorphone 0.5 MG/0.5 ML SYRINGE IVP PRN ×4 (00:19→12:26)
[2022-10-20] MEDS: ONDANSETRON 4 MG/2 ML VIAL IVP PRN ×2 (02:20→08:31)
[2022-10-20] MEDS: KETOROLAC 15 MG/ML 1 ML VIAL IVP PRN (02:20)
[2022-10-20] MEDS: LIPASE 5,000/PROTEASE 17,000/AMYLASE 24,000 PO SCH (05:44)
[2022-10-20] MEDS: diphenhydrAMINE 50 MG/ML 1 ML VIAL IVP PRN ×2 (05:44→11:48)
[2022-10-20 05:53] LABS: Glucose,Whole Blood 206 mg/dL (70-110)
[2022-10-20] MEDS: INSULIN ASPART (NovoLOG) 100 UNIT/ML VIAL SQ SCH ×2 (06:26→06:29)
[2022-10-20] MEDS: INSULIN DETEMIR (LEVEMIR) 100 UNIT/ML SYR SQ SCH (06:26)
[2022-10-20] MEDS: SODIUM CHLORIDE 0.9% 1,000 ML IV SCH (06:27)
[2022-10-20 07:47] VITALS: BP 114/78; PULSE 77; RESP 16; TEMP 97.9
[2022-10-20] MEDS: QUEtiapine 100 MG TAB PO SCH (08:32)
[2022-10-20] MEDS: PANTOPRAZOLE 40 MG/10 ML VIAL IVP SCH (08:32)
[2022-10-20 12:27] LABS: Glucose,Whole Blood 181 mg/dL (70-110)
[2022-10-20 12:57] VITALS: BMI 39.4
--- NOTE | 2022-10-21 12:52 | P.DS ---
Providers Date of admission: 10/18/22 15:02 Expected date of discharge: 10/20/22 Attending physician: Steven Ramirez Primary care physician: Isi Carolina Hospital Course: Final diagnosis Acute on chronic recurrent pancreatitis Intractable nausea and vomiting and abdominal pain Possible urinary tract infection, present on admission, most likely asymptomatic bacteriuria is patient denies any symptoms Hypertriglyceridemia Hyperglycemia uncontrolled diabetes type 2 insulin-dependent GERD History of migraine headaches Degenerative disc disease Lupus Endometriosis Possible diabetic gastroparesis Anxiety/depression and PTSD Prior history of smoking and vapor use. DVT prophylaxis Discharge disposition Patient is being discharged in a stable condition with guarded prognosis to home. Patient will follow-up with Dr. Carolina in the outpatient setting upon discharge. Patient is to follow-up with GI outpatient as scheduled. Total time taken is greater than 35 minutes. Hospital course This is a 32-year-old female who was recently admitted with intractable nausea vomiting abdominal pain with acute on chronic recurrent pancreatitis. Patient was on nothing by mouth and bowel rest with gentle IV hydration showing some improvements and labs and able to tolerate small clear liquids. Would recommend clear liquid diet over the next few days and slowly advancing as tolerated to full liquids. Strongly recommend GI follow-up outpatient. Patient is significantly noncompliant with follow-ups and has high risk for readmissions and frequent ER visits. Patient instructed to follow-up with primary care provider this week. Currently no reports of chest pain, shortness of breath, or palpitations. Patient is afebrile. No reports of nausea or vomiting and patient is tolerating diet. Patient will be discharged home today. Guarded prognosis and high risk for readmissions. Physical exam: Gen: This is a 32-year-old female who is awake, alert and oriented 3, well- developed, well-nourished, obese HEENT: Head is atraumatic, normocephalic. Pupils equal, round. Sclerae is anicteric. NECK: Supple. No JVD. No lymphadenopathy. No thyromegaly. LUNGS: Clear to auscultation. No wheezes or rhonchi. No intercostal ret ractions. HEART: Regular rate and rhythm. No murmur. ABDOMEN: Soft. Tender in the mid epigastric upper quadrant region on palpation. Obese. Bowel sounds are present. No masses. No tenderness. EXTREMITIES: No pedal edema. No calf tenderness. NEUROLOGICAL: Patient is awake, alert and oriented x3. Cranial nerves 2 through 12 are grossly intact. Please refer to medication reconciliation sheet for a list of medications. The impression and plan of care has been dictated by My Luz, Nurse Practitioner as directed. Dr. Benji MD I have performed a history and examination and MDM of this patient, discussed the same with the dictator, and agree with the dictator's assessment and plan as written ,documented as a scribe. Based on total visit time, I have performed more than 50% of the visit. Patient Condition at Discharge: Stable Plan - Discharge Summary Discharge Rx Participant: No New Discharge Prescriptions: Continue QUEtiapine FUMARATE [SEROquel XR] 600 mg PO HS Omeprazole 20 mg PO BID Ondansetron Odt [Zofran ODT] 4 mg SL Q6H PRN PRN Reason: Nausea traMADol HCl [Ultram] 50 mg PO Q8HR PRN PRN Reason: Pain Propranolol LA [Inderal LA] 60 mg PO HS Dicyclomine [Bentyl] 20 mg PO QID PRN PRN Reason: Gi Upset Insulin Aspart [NovoLOG Flexpen] 10 units SQ TID-W/MEALS Lidocaine 5% Patch [Lidoderm 5% Patch] 1 patch TOPICAL DAILY PRN #7 patch PRN Reason: Pain Acetaminophen [Tylenol Extra Strength] 500 mg PO Q4H PRN PRN Reason: Pain Or Fever > 100.5 Insulin Aspart [NovoLOG Flexpen] See Protocol SQ TID-W/MEALS PRN PRN Reason: HIGH BLOOD SUGAR Insulin Glargine,Hum.rec.anlog [Lantus Solostar Pen] 45 units SQ DAILY tiZANidine [Zanaflex] 4 mg PO BID PRN PRN Reason: muscle spasms Ibuprofen [Motrin] 800 mg PO Q8HR PRN #30 tab PRN Reason: Pain Etonogestrel [Nexplanon] 68 mg INTRADERMA DIRECTED Lipase/Protease/Amylase [Zenpep Dr 5,000 Unit Capsule] 2 cap PO TID-W/MEALS Pioglitazone [Actos] 30 mg PO DAILY Albuterol Nebulized [Ventolin Nebulized] 2.5 mg INHALATION RT-Q4H PRN PRN Reason: difficulty in breathing metFORMIN HCL [Glucophage] 1,000 mg PO BID Discharge Medication List Omeprazole 20 mg PO BID 11/16/21 [History] QUEtiapine FUMARATE [SEROquel XR] 600 mg PO HS 11/16/21 [History] Acetaminophen [Tylenol Extra Strength] 500 mg PO Q4H PRN 03/30/22 [History] Insulin Aspart [NovoLOG Flexpen] See Protocol SQ TID-W/MEALS PRN 03/30/22 [Histo ry] Insulin Glargine,Hum.rec.anlog [Lantus Solostar Pen] 45 units SQ DAILY 03/30/22 [History] Ondansetron Odt [Zofran ODT] 4 mg SL Q6H PRN 03/30/22 [History] tiZANidine [Zanaflex] 4 mg PO BID PRN 03/30/22 [History] Ibuprofen [Motrin] 800 mg PO Q8HR PRN #30 tab 06/07/22 [Rx] Etonogestrel [Nexplanon] 68 mg INTRADERMA DIRECTED 06/22/22 [History] traMADol HCl [Ultram] 50 mg PO Q8HR PRN 07/30/22 [History] Albuterol Nebulized [Ventolin Nebulized] 2.5 mg INHALATION RT-Q4H PRN 09/18/22 [History] Dicyclomine [Bentyl] 20 mg PO QID PRN 09/18/22 [History] Insulin Aspart [NovoLOG Flexpen] 10 units SQ TID-W/MEALS 09/18/22 [History] Lipase/Protease/Amylase [Zenpep Dr 5,000 Unit Capsule] 2 cap PO TID-W/MEALS 09/18/22 [History] Pioglitazone [Actos] 30 mg PO DAILY 09/18/22 [History] Propranolol LA [Inderal LA] 60 mg PO HS 09/18/22 [History] Lidocaine 5% Patch [Lidoderm 5% Patch] 1 patch TOPICAL DAILY PRN #7 patch 09/23/22 [Rx] metFORMIN HCL [Glucophage] 1,000 mg PO BID 10/18/22 [History] Follow up Appointment(s)/Referral(s): Katarzyna Bocanegra MD [STAFF PHYSICIAN] - 1 Week Isi Carolina MD [Primary Care Provider] - 1-2 days Activity/Diet/Wound Care/Special Instructions: Activity Limited until follow-up Follow-up with primary care provider on discharge Follow-up with GI outpatient Continue clear liquids and slowly advanced to full liquid diet over the next few days and slowly advance as tolerated Discharge Disposition: HOME SELF-CARE
== END 2022-10-20 12:43 | disposition home or self-care (01) | DRG 282 ==
LOC: EC 11:50 → 6NMEDSUR 15:02
PROVIDERS: ADMIT Internal Medicine; ATTEND Internal Medicine
DX: K85.90 Acute pancreatitis without necrosis or infection, unspecified (principal); K86.1 Other chronic pancreatitis; E11.43 Type 2 diabetes mellitus with diabetic autonomic (poly)neuropathy; E78.1 Pure hyperglyceridemia; G89.29 Other chronic pain; K31.84 Gastroparesis; K21.9 Gastro-esophageal reflux disease without esophagitis; N39.0 Urinary tract infection, site not specified; N80.9 Endometriosis, unspecified; R11.2 Nausea with vomiting, unspecified; M32.9 Systemic lupus erythematosus, unspecified; G43.909 Migraine, unspecified, not intractable, without status migrainosus; E11.65 Type 2 diabetes mellitus with hyperglycemia; F32.A Depression, unspecified; F43.10 Post-traumatic stress disorder, unspecified; Z87.891 Personal history of nicotine dependence; Z91.030 Bee allergy status; Z91.040 Latex allergy status; Z91.018 Allergy to other foods; Z79.4 Long term (current) use of insulin; Z79.899 Other long term (current) drug therapy; Z79.84 Long term (current) use of oral hypoglycemic drugs; Z90.49 Acquired absence of other specified parts of digestive tract; Z88.1 Allergy status to other antibiotic agents; Z88.2 Allergy status to sulfonamides; Z91.038 Other insect allergy status
CPT/HCPCS: 36415; 76770; 80053; 81001; 82150; 83036; 83605; 83690; 85025; 87086; 96361; 96374; 96375; 99285

== ENCOUNTER 2022-10-28 04:15 | Emergency (ER) | payer OTHER ==
[2022-10-28 05:03] VITALS: RESP 18; TEMP 98.6
--- NOTE | 2022-10-28 05:23 | ED ---
General Adult HPI - General Chief complaint: Abdominal Pain Stated complaint: ABD Pain Time Seen by Provider: 10/28/22 04:22 Source: patient Mode of arrival: ambulatory Limitations: no limitations - History of Present Illness Initial comments: Dictation was produced using [employer] dictation software. please excuse any grammatical, word or spelling errors. Chief Complaint: 32-year-old female presents emergency department for abdominal pain History of Present Illness: Patient's 32-year-old female she is well-known to emergency department for frequent visitations for abdominal pain and headache. Patient was recently admitted to the hospital for pancreatitis. She has history of pancreatitis. Patient was just discharged yesterday. States that the pain as epigastric. Associated nausea. No vomiting. No fever or constitutional symptoms. The ROS documented in this emergency department record has been reviewed and confirmed by me. Those systems with pertinent positive or negative responses have been documented in the HPI. All other systems are other negative and/or noncontributory. - Related Data Home Medications Medication Instructions Recorded Confirmed Omeprazole 20 mg PO BID 11/16/21 10/27/22 QUEtiapine FUMARATE [SEROquel XR] 600 mg PO HS 11/16/21 10/27/22 Acetaminophen [Tylenol Extra 500 mg PO Q4H PRN 03/30/22 10/27/22 Strength] Insulin Aspart [NovoLOG Flexpen] See Protocol SQ TID-W/MEALS PRN 03/30/22 10/27/22 Insulin Glargine,Hum.rec.anlog 45 units SQ QAM 03/30/22 10/27/22 [Lantus Solostar Pen] Ondansetron Odt [Zofran ODT] 4 mg SL Q6H PRN 03/30/22 10/27/22 tiZANidine [Zanaflex] 4 mg PO BID PRN 03/30/22 10/27/22 Etonogestrel [Nexplanon] 68 mg INTRADERMA DIRECTED 06/22/22 10/27/22 traMADol HCl [Ultram] 50 mg PO Q8HR PRN 07/30/22 10/27/22 Albuterol Nebulized [Ventolin 2.5 mg INHALATION RT-Q4H PRN 09/18/22 10/27/22 Nebulized] Insulin Aspart [NovoLOG Flexpen] 10 units SQ TID-W/MEALS 09/18/22 10/27/22 Lipase/Protease/Amylase [Zenpep Dr 2 cap PO TID-W/MEALS 09/18/22 10/27/22 5,000 Unit Capsule] Pioglitazone [Actos] 30 mg PO QAM 09/18/22 10/27/22 metFORMIN HCL [Glucophage] 1,000 mg PO BID 10/18/22 10/27/22 Atorvastatin [Lipitor] 80 mg PO HS 10/27/22 10/27/22 EPINEPHrine (Auto Inject) [Epipen] 0.3 mg IM DIRECTED PRN 10/27/22 10/27/22 Fenofibrate [Lofibra] 160 mg PO QAM 10/27/22 10/27/22 Propranolol LA [Inderal LA] 60 mg PO QAM 10/27/22 10/27/22 Previous Rx's Medication Instructions Recorded Ibuprofen [Motrin] 800 mg PO Q8HR PRN #30 tab 06/07/22 Allergies Allergy/AdvReac Type Severity Reaction Status Date / Time bee pollen Allergy Severe Anaphylaxis Verified 10/18/22 15:14 haloperidol lactate Allergy Severe QUIT Verified 10/27/22 12:14 [From Haldol] BREATHING latex Allergy Severe RASH-THROAT Verified 10/27/22 12:14 CLOSES [place] Allergy Anaphylaxis Verified 10/27/22 12:14 coconut Allergy Anaphylaxis Verified 10/27/22 12:14 pineapple Allergy Anaphylaxis Verified 10/27/22 12:14 spider venom Allergy Swelling Verified 10/27/22 12:14 Sulfa (Sulfonamide Allergy Anaphylaxis Verified 10/27/22 12:14 Antibiotics) venom-wasp Allergy Swelling Verified 10/27/22 12:14 venom-wasp protein Allergy Swelling Verified 10/27/22 12:14 promethazine HCl AdvReac Severe Nausea & Verified 10/27/22 12:14 [From Phenergan] Vomiting amoxicillin AdvReac Nausea & Verified 10/27/22 12:14 Vomiting ANTS AdvReac Mild Anaphylaxis Uncoded 10/27/22 12:14 Review of Systems ROS Statement: Those systems with pertinent positive or pertinent negative responses have been documented in the HPI. ROS Other: All systems not noted in ROS Statement are negative. Past Medical History Past Medical History: Asthma, Diabetes Mellitus, GERD/Reflux Additional Past Medical History / Comment(s): migraines, degenerative disk disease, endometriosis, lupus, pancreatitis, DM2- insulin, gastroparesis History of Any Multi-Drug Resistant Organisms: None Reported Past Surgical History: Cholecystectomy, Orthopedic Surgery Additional Past Surgical History / Comment(s): laparoscopc surgery for endometriosis, cyst removed from left foot, EGD, Past Anesthesia/Blood Transfusion Reactions: Previous Problems w/ Anesthesia Additional Past Anesthesia/Blood Transfusion Reaction / Comment(s): hard to wake up for 48-72 hours after laparoscopic surgery-was in hosp. for 3 days Past Psychological History: Anxiety, Depression, PTSD Smoking Status: Former smoker, Vaper Past Alcohol Use History: None Reported Past Drug Use History: Marijuana - Past Family History Mother Family Medical History: Cancer Additional Family Medical History / Comment(s): Migraines, pancreatic cancer, . Father Family Medical History: Coronary Artery Disease (CAD), Hypertension Additional Family Medical History / Comment(s): ddd, alcoholism & drug use General Exam - General Exam Comments Initial Comments: PHYSICAL EXAM: General Impression: Alert and oriented x3, not in acute distress HEENT: Normocephalic atraumatic, extra-ocular movements intact, pupils equal and reactive to light bilaterally, mucous membranes moist. Cardiovascular: Heart regular rate and rhythm Chest: Able to complete full sentences, no retractions, no tachypnea Abdomen: abdomen soft, non-tender, non-distended, no organomegaly Musculoskeletal: Pulses present and equal in all extremities, no peripheral edema Motor: no focal deficits noted Neurological: CN II-XII grossly intact, no focal motor or sensory deficits noted Skin: Intact with no visualized rashes Psych: Normal affect and mood Limitations: no limitations Course Vital Signs 10/28/22 04:57 Temperature 98.6 F Pulse Rate 123 H Respiratory 18 Rate Blood Pressure 109/80 O2 Sat by Pulse 97 Oximetry Medical Decision Making - Medical Decision Making Was pt. sent in by a medical professional or institution (, PA, MEDICAL SCIENTIST, urgent care, hospital, or care home...) When possible be specific @ -No Did you speak to anyone other than the patient for history (EMS, parent, family, police, friend...)? What history was obtained from this source @ -No Did you review nursing and triage notes (agree or disagree)? Why? @ -I reviewed and agree with nursing and triage notes Were old charts reviewed (outside hosp., previous admission, EMS record, old EKG, old radiological studies, urgent care reports/EKG's, care home records)? Report findings @ -No old charts were reviewed Differential Diagnosis (chest pain, altered mental status, abdominal pain women, abdominal pain men, vaginal bleeding, musculoskeletal, weakness, fever, dyspnea, syncope, headache, dizziness, GI bleed, back pain, seizure, CVA, palpatations, mental health)? @ -Differential Abdominal Pain Women: Appendicitis, Cholecystitis, diverticulosis, ischemic bowel, pancreatitis, hepatitis, UTI, gastroenteritis, AAA, incarcerated hernia, bowel obstruction, constipation, inflammatory bowel, hepatitis, peptic ulcer disease, splenic infarction, perforated viscus, vulvitis, ovarian torsion, PID, kidney stone, placenta abruption, this is not meant to be an all-inclusive list EKG interpreted by me (3pts min.). @ -None done X-rays interpreted by me (1pt min.). @ -None done CT interpreted by me (1pt min.). @ -None done U/S interpreted by me (1pt. min.). @ -None done What testing was considered but not performed or refused? (CT, X-rays, U/S, labs)? Why? @ -None What meds were considered but not given or refused? Why? @ -None Did you discuss the management of the patient with other professionals (professionals i.e. , PA, MEDICAL SCIENTIST, lab, RT, psych nurse, social service coordinator, solar lab technician, teacher, police officer, case mgr)? Give summary @ -No Was smoking cessation discussed for >3mins.? @ -No Was critical care preformed (if so, how long)? @ -No Were there social determinants of health that impacted care today? How? (Homelessness, low income, unemployed, alcoholism, drug addiction, transportation, low edu. Level, literacy, decrease access to med. care, fpc, rehab)? @ -No Was there de-escalation of care discussed even if they declined (Discuss DNR or withdrawal of care, Hospice)? DNR status @ -No What co-morbidities impacted this encounter? (DM, HTN, Smoking, COPD, CAD, Cancer, CVA, ARF, Chemo, Hep., AIDS, mental health diagnosis, sleep apnea, morbid obesity)? @ -None Was patient admitted / discharged? Hospital course, mention meds given and route, prescriptions, significant lab abnormalities, going to OR and other per tinent info. @ -32 yo female presents emergency Department with abdominal pain. Vital signs stable. Lipase level is normal. Patient be discharged Undiagnosed new problem with uncertain prognosis? @ -No Drug Therapy requiring intensive monitoring for toxicity (Heparin, Nitro, Insulin, Cardizem)? @ -No Were any procedures done? @ -No Diagnosis/symptom? Acute, or Chronic, or Acute on Chronic? Uncomplicated (without systemic symptoms) or Complicated (systemic symptoms)? @ -1. Chronic abdominal pain Side effects of treatment? @ -No Exacerbation, Progression, or Severe Exacerbation? @ -No Poses a threat to life or bodily function? How? (Chest pain, [place], [place], pneumonia, PE, COPD, DKA, ARF, appy, cholecystitis, CVA, Diverticulitis, Homicidal, Suicidal, threat to staff... and all critical care pts) @ -No - Lab Data Lab Results 10/28/22 Range/Units 05:09 Lipase 292 (23-300) U/L Disposition Clinical Impression: Abdominal pain Disposition: HOME SELF-CARE Condition: Good Instructions (If sedation given, give patient instructions): Abdominal Pain (ED) Is patient prescribed a controlled substance at d/c from ED?: No Referrals: Isi Carolina MD [Primary Care Provider] - 1-2 days Time of Disposition: 06:08
[2022-10-28 06:16] VITALS: BP 113/78; PULSE 110
== END 2022-10-28 06:16 | disposition home or self-care (01) ==
LOC: EC 04:15
DX: R10.13 Epigastric pain (principal); J45.909 Unspecified asthma, uncomplicated; E11.9 Type 2 diabetes mellitus without complications; K21.9 Gastro-esophageal reflux disease without esophagitis; F41.9 Anxiety disorder, unspecified; F32.A Depression, unspecified; F17.290 Nicotine dependence, other tobacco product, uncomplicated; F12.90 Cannabis use, unspecified, uncomplicated; Z79.899 Other long term (current) drug therapy; Z91.040 Latex allergy status; Z91.030 Bee allergy status; Z88.8 Allergy status to other drugs, medicaments and biological substances; Z91.018 Allergy to other foods; Z79.84 Long term (current) use of oral hypoglycemic drugs; Z79.4 Long term (current) use of insulin
CPT/HCPCS: 36415; 83690; 99284

== ENCOUNTER 2022-10-29 19:08 | Emergency (ER) | payer OTHER ==
[2022-10-29] MEDS ORDERED: SODIUM CHLORIDE 0.9% 1,000 ML IV STA (19:42)
[2022-10-29] MEDS ORDERED: PANTOPRAZOLE 40 MG/10 ML VIAL IVP STA (20:01)
[2022-10-29] MEDS ORDERED: KETOROLAC 15 MG/ML 1 ML VIAL IVP STA (20:01)
[2022-10-29] MEDS ORDERED: FAMOTIDINE 20 MG/2 ML VIAL IV STA (20:01)
[2022-10-29 21:04] LABS: Basophils % (A) 0 %; Eosinophils # (A) 0.1 k/uL (0-0.7); Eosinophils % (A) 2 %; HCT 35.8 % (34.0-46.0); HGB 10.8 gm/dL (11.4-16.0); Lymphocytes # (A) 2.1 k/uL (1.0-4.8); Lymphocytes % (A) 39 %; MCH 27.8 pg (25.0-35.0); MCHC 30.1 g/dL (31.0-37.0); MCV 92.3 fL (80.0-100.0); Mean Platelet Volume 8.3; Monocytes # (A) 0.3 k/uL (0-1.0); Monocytes % (A) 6 %; Neutrophils # (A) 2.9 k/uL (1.3-7.7); Neutrophils % (A) 53 %; Platelet Count 193 k/uL (150-450); RBC 3.87 m/uL (3.80-5.40); RDW 14.9 % (11.5-15.5); WBC 5.6 k/uL (3.8-10.6)
[2022-10-29 21:15] LABS: ALT 16 U/L (4-34); AST 20 U/L (14-36); African American GFR (CKD) >90 (>60 ml/min/1.73 sqM); Albumin 3.4 g/dL (3.5-5.0); Alkaline Phosphatase 44 U/L (38-126); Anion Gap 9 mmol/L; Blood Urea Nitrogen 19 mg/dL (7-17); Calcium 10.1 mg/dL (8.4-10.2); Carbon Dioxide 23 mmol/L (22-30); Chloride 105 mmol/L (98-107); Glucose 169 mg/dL (74-99); Lipase 339 U/L (23-300); Non-African American GFR(CKD) >90 (>60 ml/min/1.73 sqM); Potassium 4.2 mmol/L (3.5-5.1); Sodium 137 mmol/L (137-145); Total Bilirubin 0.4 mg/dL (0.2-1.3); Total Protein 6.4 g/dL (6.3-8.2)
[2022-10-29] MEDS ORDERED: diphenhydrAMINE 50 MG/ML 1 ML VIAL IVP STA (21:21)
--- NOTE | 2022-10-29 22:21 | ED ---
Abdominal Pain HPI - General Chief Complaint: Abdominal Pain Stated Complaint: Abd pain Time Seen by Provider: 10/29/22 19:41 Source: patient Mode of arrival: ambulatory Limitations: no limitations - History of Present Illness Initial Comments: Patient is a 32-year-old female presents to the emergency department for abdominal pain. Patient has history of chronic abdominal pain. She reports pain in her upper abdomen refractory to Tylenol, Motrin, Tramadol. She feels nauseous no vomiting. No fever or chills. No urinary symptoms. No chest pain or shortness of breath. Patient was recently admitted for pancreatitis. - Related Data Home Medications Medication Instructions Recorded Confirmed Omeprazole 20 mg PO BID 11/16/21 10/27/22 QUEtiapine FUMARATE [SEROquel XR] 600 mg PO HS 11/16/21 10/27/22 Acetaminophen [Tylenol Extra 500 mg PO Q4H PRN 03/30/22 10/27/22 Strength] Insulin Aspart [NovoLOG Flexpen] See Protocol SQ TID-W/MEALS PRN 03/30/22 10/27/22 Insulin Glargine,Hum.rec.anlog 45 units SQ QAM 03/30/22 10/27/22 [Lantus Solostar Pen] Ondansetron Odt [Zofran ODT] 4 mg SL Q6H PRN 03/30/22 10/27/22 tiZANidine [Zanaflex] 4 mg PO BID PRN 03/30/22 10/27/22 Etonogestrel [Nexplanon] 68 mg INTRADERMA DIRECTED 06/22/22 10/27/22 traMADol HCl [Ultram] 50 mg PO Q8HR PRN 07/30/22 10/27/22 Albuterol Nebulized [Ventolin 2.5 mg INHALATION RT-Q4H PRN 09/18/22 10/27/22 Nebulized] Insulin Aspart [NovoLOG Flexpen] 10 units SQ TID-W/MEALS 09/18/22 10/27/22 Lipase/Protease/Amylase [Zenpep Dr 2 cap PO TID-W/MEALS 09/18/22 10/27/22 5,000 Unit Capsule] Pioglitazone [Actos] 30 mg PO QAM 09/18/22 10/27/22 metFORMIN HCL [Glucophage] 1,000 mg PO BID 10/18/22 10/27/22 Atorvastatin [Lipitor] 80 mg PO HS 10/27/22 10/27/22 EPINEPHrine (Auto Inject) [Epipen] 0.3 mg IM DIRECTED PRN 10/27/22 10/27/22 Fenofibrate [Lofibra] 160 mg PO QAM 10/27/22 10/27/22 Propranolol LA [Inderal LA] 60 mg PO QAM 10/27/22 10/27/22 Previous Rx's Medication Instructions Recorded Ibuprofen [Motrin] 800 mg PO Q8HR PRN #30 tab 06/07/22 Allergies Allergy/AdvReac Type Severity Reaction Status Date / Time bee pollen Allergy Severe Anaphylaxis Verified 10/29/22 19:29 haloperidol lactate Allergy Severe QUIT Verified 10/29/22 19:29 [From Haldol] BREATHING latex Allergy Severe RASH-THROAT Verified 10/29/22 19:29 CLOSES [place] Allergy Anaphylaxis Verified 10/29/22 19:29 coconut Allergy Anaphylaxis Verified 10/29/22 19:29 pineapple Allergy Anaphylaxis Verified 10/29/22 19:29 spider venom Allergy Swelling Verified 10/29/22 19:29 Sulfa (Sulfonamide Allergy Anaphylaxis Verified 10/29/22 19:29 Antibiotics) venom-wasp Allergy Swelling Verified 10/29/22 19:29 venom-wasp protein Allergy Swelling Verified 10/29/22 19:29 promethazine HCl AdvReac Severe Nausea & Verified 10/29/22 19:29 [From Phenergan] Vomiting amoxicillin AdvReac Nausea & Verified 10/29/22 19:29 Vomiting ANTS AdvReac Mild Anaphylaxis Uncoded 10/29/22 19:29 Review of Systems ROS Statement: Those systems with pertinent positive or pertinent negative responses have been documented in the HPI. ROS Other: All systems not noted in ROS Statement are negative. Past Medical History Past Medical History: Asthma, Diabetes Mellitus, GERD/Reflux Additional Past Medical History / Comment(s): migraines, degenerative disk disease, endometriosis, lupus, pancreatitis, DM2- insulin, gastroparesis History of Any Multi-Drug Resistant Organisms: None Reported Past Surgical History: Cholecystectomy, Orthopedic Surgery Additional Past Surgical History / Comment(s): laparoscopc surgery for en dometriosis, cyst removed from left foot, EGD, Past Anesthesia/Blood Transfusion Reactions: Previous Problems w/ Anesthesia Additional Past Anesthesia/Blood Transfusion Reaction / Comment(s): hard to wake up for 48-72 hours after laparoscopic surgery-was in hosp. for 3 days Past Psychological History: Anxiety, Depression, PTSD Smoking Status: Former smoker, Vaper Past Alcohol Use History: None Reported Past Drug Use History: Marijuana - Past Family History Mother Family Medical History: Cancer Additional Family Medical History / Comment(s): Migraines, pancreatic cancer, . Father Family Medical History: Coronary Artery Disease (CAD), Hypertension Additional Family Medical History / Comment(s): ddd, alcoholism & drug use General Exam Limitations: no limitations General appearance: alert Respiratory exam: Present: normal lung sounds bilaterally. Absent: respiratory distress, wheezes, rales, rhonchi, stridor Cardiovascular Exam: Present: regular rate, normal rhythm, normal heart sounds. Absent: systolic murmur, diastolic murmur, rubs, gallop, clicks GI/Abdominal exam: Present: soft, normal bowel sounds. Absent: distended, tenderness, guarding, rebound, rigid Neurological exam: Present: alert Psychiatric exam: Present: normal affect, normal mood Skin exam: Present: warm, dry, intact, normal color. Absent: rash Course Vital Signs 10/29/22 10/29/22 10/29/22 19:26 22:10 22:54 Temperature 98.4 F 98.1 F Pulse Rate 95 90 88 Respiratory 18 18 20 Rate Blood Pressure 117/89 120/75 130/68 O2 Sat by Pulse 98 99 99 Oximetry Medical Decision Making - Medical Decision Making Was pt. sent in by a medical professional or institution (, PA, PHOTOGRAMMETRIC TECHNICIAN, urgent care, hospital, or skilled nursing...) When possible be specific @ -No Did you speak to anyone other than the patient for history (EMS, parent, family, police, friend...)? What history was obtained from this source @ -No Did you review nursing and triage notes (agree or disagree)? Why? @ -I reviewed and agree with nursing and triage notes Were old charts reviewed (outside hosp., previous admission, EMS record, old EKG, old radiological studies, urgent care reports/EKG's, skilled nursing records)? Report findings @ -No old charts were reviewed Differential Diagnosis (chest pain, altered mental status, abdominal pain women, abdominal pain men, vaginal bleeding, weakness, fever, dyspnea, syncope, headache, dizziness, GI bleed, back pain, seizure, CVA, palpatations, mental health)? @ -Differential Abdominal Pain Women: Appendicitis, Cholecystitis, diverticulosis, ischemic bowel, pancreatitis, hepatitis, UTI, gastroenteritis, AAA, incarcerated hernia, bowel obstruction, constipation, inflammatory bowel, hepatitis, peptic ulcer disease, splenic infarction, perforated viscus, vulvitis, ovarian torsion, PID, kidney stone, placenta abruption, this is not meant to be an all-inclusive list EKG interpreted by me (3pts min.). @ -As above X-rays interpreted by me (1pt min.). @ -None done CT interpreted by me (1pt min.). @ -None done U/S interpreted by me (1pt. min.). @ -None done What testing was considered but not performed or refused? (CT, X-rays, U/S, labs)? Why? @ -None What meds were considered but not given or refused? Why? @ -None Did you discuss the management of the patient with other professionals (professionals i.e. , PA, PHOTOGRAMMETRIC TECHNICIAN, lab, RT, psych nurse, social media intern, night supervisor, teacher, aoc airspace control officer, watch case polisher)? Give summary @ -No Was smoking cessation discussed for >3mins.? @ -No Was critical care preformed (if so, how long)? @ -No Were there social determinants of health that impacted care today? How? (Homelessness, low income, unemployed, alcoholism, drug addiction, transportation, low edu. Level, literacy, decrease access to med. care, residential, rehab)? @ -No Was there de-escalation of care discussed even if they declined (Discuss DNR or withdrawal of care, Hospice)? DNR status @ -No What co-morbidities impacted this encounter? (DM, HTN, Smoking, COPD, CAD, Cancer, CVA, ARF, Chemo, Hep., AIDS, mental health diagnosis, sleep apnea, morbid obesity)? @ -chronic abdominal pain Was patient admitted / discharged? Hospital course, mention meds given and route, prescriptions, significant lab abnormalities, going to OR and other pertinent info. @ -Patient presenting with abdominal pain. Lipase is mildly elevated at 339. Pain improved in the emergency Department patient in stable medical condition for discharge Undiagnosed new problem with uncertain prognosis? @ -No Drug Therapy requiring intensive monitoring for toxicity (Heparin, Nitro, Insulin, Cardizem)? @ -No Were any procedures done? @ -No Diagnosis/symptom? @ -abdominal pain Acute, or Chronic, or Acute on Chronic? @ -acute on chronic Uncomplicated (without systemic symptoms) or Complicated (systemic symptoms)? @ -uncomplicated Side effects of treatment? @ -No Exacerbation, Progression, or Severe Exacerbation? @ -No Poses a threat to life or bodily function? How? (Chest pain, [place], [place], pneumonia, PE, COPD, DKA, ARF, appy, cholecystitis, CVA, Diverticulitis, Homicidal, Suicidal, threat to staff... and all critical care pts) @ -No Dr. Avalos is my attending - Lab Data Result diagrams: 10/29/22 20:56 10/29/22 20:56 Lab Results 10/29/22 10/29/22 10/29/22 Range/Units 20:56 20:56 20:56 WBC 5.6 (3.8-10.6) k/uL RBC 3.87 (3.80-5.40) m/uL Hgb 10.8 L (11.4-16.0) gm/dL Hct 35.8 (34.0-46.0) % MCV 92.3 (80.0-100.0) fL MCH 27.8 (25.0-35.0) pg MCHC 30.1 L (31.0-37.0) g/dL RDW 14.9 (11.5-15.5) % Plt Count 193 (150-450) k/uL MPV 8.3 Neutrophils % 53 % Lymphocytes % 39 % Monocytes % 6 % Eosinophils % 2 % Basophils % 0 % Neutrophils # 2.9 (1.3-7.7) k/uL Lymphocytes # 2.1 (1.0-4.8) k/uL Monocytes # 0.3 (0-1.0) k/uL Eosinophils # 0.1 (0-0.7) k/uL Basophils # 0.0 (0-0.2) k/uL Sodium 137 (137-145) mmol/L Potassium 4.2 (3.5-5.1) mmol/L Chloride 105 (98-107) mmol/L Carbon Dioxide 23 (22-30) mmol/L Anion Gap 9 mmol/L BUN 19 H (7-17) mg/dL Creatinine 0.80 (0.52-1.04) mg/dL Est GFR (CKD-EPI)AfAm >90 (>60 ml/min/1.73 sqM) Est GFR (CKD-EPI)NonAf >90 (>60 ml/min/1.73 sqM) Glucose 169 H (74-99) mg/dL Plasma Lactic Acid Aurelio 1.2 (0.7-2.0) mmol/L Calcium 10.1 (8.4-10.2) mg/dL Total Bilirubin 0.4 (0.2-1.3) mg/dL AST 20 (14-36) U/L ALT 16 (4-34) U/L Alkaline Phosphatase 44 (38-126) U/L Total Protein 6.4 (6.3-8.2) g/dL Albumin 3.4 L (3.5-5.0) g/dL Lipase 339 H (23-300) U/L Disposition Clinical Impression: Abdominal pain Disposition: HOME SELF-CARE Condition: Good Instructions (If sedation given, give patient instructions): Abdominal Pain (ED) Additional Instructions: Please follow-up with your primary care provider in 1-2 days. Return to the emergency department if you experience new, concerning, or worsening symptoms. Is patient prescribed a controlled substance at d/c from ED?: No Referrals: Isi Carolina MD [Primary Care Provider] - 1-2 days
[2022-10-29 22:56] VITALS: BP 130/68; PULSE 88; RESP 20; TEMP 98.1
== END 2022-10-29 22:55 | disposition home or self-care (01) ==
LOC: EC 19:08
DX: R10.10 Upper abdominal pain, unspecified (principal); J45.909 Unspecified asthma, uncomplicated; E11.9 Type 2 diabetes mellitus without complications; K21.9 Gastro-esophageal reflux disease without esophagitis; F41.9 Anxiety disorder, unspecified; F32.A Depression, unspecified; F12.90 Cannabis use, unspecified, uncomplicated; F17.290 Nicotine dependence, other tobacco product, uncomplicated; Z79.4 Long term (current) use of insulin; Z79.899 Other long term (current) drug therapy; Z79.2 Long term (current) use of antibiotics; Z91.030 Bee allergy status; Z91.018 Allergy to other foods; Z88.0 Allergy status to penicillin; Z88.2 Allergy status to sulfonamides
CPT/HCPCS: 36415; 80053; 83605; 83690; 85025; 99284; 96374; 96375 ×3; 96361; J1200; J1885; C9113

== ENCOUNTER 2022-11-05 10:19 | Emergency (ER) | payer OTHER ==
[2022-11-05] MEDS ORDERED: SODIUM CHLORIDE 0.9% 1,000 ML IV STA (10:30)
[2022-11-05] MEDS ORDERED: KETOROLAC 15 MG/ML 1 ML VIAL IVP STA (10:30)
[2022-11-05] MEDS ORDERED: diphenhydrAMINE 50 MG/ML 1 ML VIAL IVP STA (10:30)
[2022-11-05] MEDS ORDERED: DEXAMETHASONE SOD PHOSPHATE 10 MG/ML 1 ML VIAL IVP STA (10:30)
[2022-11-05] MEDS ORDERED: ONDANSETRON 4 MG/2 ML VIAL IVP STA (10:30)
[2022-11-05] MEDS ORDERED: HYDROmorphone 0.5 MG/0.5 ML SYRINGE IVP STA (11:57)
--- NOTE | 2022-11-05 12:13 | ED ---
Headache HPI - General Chief Complaint: Headache Stated Complaint: Migraine,Nausea Time Seen by Provider: 11/05/22 10:30 Mode of arrival: ambulatory - History of Present Illness Initial Comments: Patient is a 32-year-old female presents to emergency department for migraine. Patient has history of migraine states this feels similar. Denies recent head trauma, fall. She reports nausea no vomiting. No fever or chills. No numbness or tingling. No weakness. - Related Data Home Medications Medication Instructions Recorded Confirmed Omeprazole 20 mg PO BID 11/16/21 10/27/22 QUEtiapine FUMARATE [SEROquel XR] 600 mg PO HS 11/16/21 10/27/22 Acetaminophen [Tylenol Extra 500 mg PO Q4H PRN 03/30/22 10/27/22 Strength] Insulin Aspart [NovoLOG Flexpen] See Protocol SQ TID-W/MEALS PRN 03/30/22 10/27/22 Insulin Glargine,Hum.rec.anlog 45 units SQ QAM 03/30/22 10/27/22 [Lantus Solostar Pen] Ondansetron Odt [Zofran ODT] 4 mg SL Q6H PRN 03/30/22 10/27/22 tiZANidine [Zanaflex] 4 mg PO BID PRN 03/30/22 10/27/22 Etonogestrel [Nexplanon] 68 mg INTRADERMA DIRECTED 06/22/22 10/27/22 traMADol HCl [Ultram] 50 mg PO Q8HR PRN 07/30/22 10/27/22 Albuterol Nebulized [Ventolin 2.5 mg INHALATION RT-Q4H PRN 09/18/22 10/27/22 Nebulized] Insulin Aspart [NovoLOG Flexpen] 10 units SQ TID-W/MEALS 09/18/22 10/27/22 Lipase/Protease/Amylase [Zenpep Dr 2 cap PO TID-W/MEALS 09/18/22 10/27/22 5,000 Unit Capsule] Pioglitazone [Actos] 30 mg PO QAM 09/18/22 10/27/22 metFORMIN HCL [Glucophage] 1,000 mg PO BID 10/18/22 10/27/22 Atorvastatin [Lipitor] 80 mg PO HS 10/27/22 10/27/22 EPINEPHrine (Auto Inject) [Epipen] 0.3 mg IM DIRECTED PRN 10/27/22 10/27/22 Fenofibrate [Lofibra] 160 mg PO QAM 10/27/22 10/27/22 Propranolol LA [Inderal LA] 60 mg PO QAM 10/27/22 10/27/22 Previous Rx's Medication Instructions Recorded Ibuprofen [Motrin] 800 mg PO Q8HR PRN #30 tab 06/07/22 Allergies Allergy/AdvReac Type Severity Reaction Status Date / Time bee pollen Allergy Severe Anaphylaxis Verified 11/05/22 10:23 haloperidol lactate Allergy Severe QUIT Verified 11/05/22 10:23 [From Haldol] BREATHING latex Allergy Severe RASH-THROAT Verified 11/05/22 10:23 CLOSES [place] Allergy Anaphylaxis Verified 11/05/22 10:23 coconut Allergy Anaphylaxis Verified 11/05/22 10:23 pineapple Allergy Anaphylaxis Verified 11/05/22 10:23 spider venom Allergy Swelling Verified 11/05/22 10:23 Sulfa (Sulfonamide Allergy Anaphylaxis Verified 11/05/22 10:23 Antibiotics) venom-wasp Allergy Swelling Verified 11/05/22 10:23 venom-wasp protein Allergy Swelling Verified 11/05/22 10:23 promethazine HCl AdvReac Severe Nausea & Verified 11/05/22 10:23 [From Phenergan] Vomiting amoxicillin AdvReac Nausea & Verified 11/05/22 10:23 Vomiting ANTS AdvReac Mild Anaphylaxis Uncoded 11/05/22 10:23 Review of Systems ROS Statement: Those systems with pertinent positive or pertinent negative responses have been documented in the HPI. ROS Other: All systems not noted in ROS Statement are negative. Past Medical History Past Medical History: Asthma, Diabetes Mellitus, GERD/Reflux Additional Past Medical History / Comment(s): migraines, degenerative disk disease, endometriosis, lupus, pancreatitis, DM2- insulin, gastroparesis History of Any Multi-Drug Resistant Organisms: None Reported Past Surgical History: Cholecystectomy, Orthopedic Surgery Additional Past Surgical History / Comment(s): laparoscopc surgery for endometriosis, cyst removed from left foot, EGD, Past Anesthesia/Blood Transfusion Reactions: Previous Problems w/ Anesthesia Additional Past Anesthesia/Blood Transfusion Reaction / Comment(s): hard to wake up for 48-72 hours after laparoscopic surgery-was in hosp. for 3 days Past Psychological History: Anxiety, Depression, PTSD Smoking Status: Former smoker, Vaper Past Alcohol Use History: None Reported Past Drug Use History: Marijuana - Past Family History Mother Family Medical History: Cancer Additional Family Medical History / Comment(s): Migraines, pancreatic cancer, . Father Family Medical History: Coronary Artery Disease (CAD), Hypertension Additional Family Medical History / Comment(s): ddd, alcoholism & drug use General Exam General appearance: alert, in no apparent distress Respiratory exam: Present: normal lung sounds bilaterally. Absent: respiratory distress, wheezes, rales, rhonchi, stridor Cardiovascular Exam: Present: regular rate, normal rhythm, normal heart sounds. Absent: systolic murmur, diastolic murmur, rubs, gallop, clicks Neurological exam: Present: alert Expanded Sensory exam: Upper Extremity Light Touch: Normal, Lower Extremity Light Touch: Normal Motor strength exam: RUE: 5, LUE: 5, RLE: 5, LLE: 5 Psychiatric exam: Present: normal affect, normal mood Skin exam: Present: warm, dry, intact, normal color. Absent: rash Course Vital Signs 11/05/22 11/05/22 10:20 12:25 Temperature 98.8 F 98.4 F Pulse Rate 145 H 107 H Respiratory 18 16 Rate Blood Pressure 135/97 109/76 O2 Sat by Pulse 96 96 Oximetry Medical Decision Making - Medical Decision Making Was pt. sent in by a medical professional or institution (Dr. PA, VARNISH MIXER, urgent care, hospital, or custodial...) When possible be specific @ -No Did you speak to anyone other than the patient for history (EMS, parent, family, police, friend...)? What history was obtained from this source @ -No Did you review nursing and triage notes (agree or disagree)? Why? @ -I reviewed and agree with nursing and triage notes Were old charts reviewed (outside hosp., previous admission, EMS record, old EKG, old radiological studies, urgent care reports/EKG's, custodial records)? Report findings @ -No old charts were reviewed Differential Diagnosis (chest pain, altered mental status, abdominal pain women, abdominal pain men, vaginal bleeding, weakness, fever, dyspnea, syncope, headache, dizziness, GI bleed, back pain, seizure, CVA, palpatations, mental health)? @ -Differential Headache: Migraine, tension, cluster, carbon monoxide, central venous thrombosis, pension karma temporal arteritis, acute closure glaucoma, intercranial hemorrhage, mastoiditis, sinusitis, head injury, this is not meant to be an all-inclusive list. EKG interpreted by me (3pts min.). @ -As above X-rays interpreted by me (1pt min.). @ -None done CT interpreted by me (1pt min.). @ -None done U/S interpreted by me (1pt. min.). @ -None done What testing was considered but not performed or refused? (CT, X-rays, U/S, labs)? Why? @ -None What meds were considered but not given or refused? Why? @ -None Did you discuss the management of the patient with other professionals (pro fessionals i.e. , PA, VARNISH MIXER, lab, RT, psych nurse, social services aide, dispatcher service or work, teacher, probation officer, case checker)? Give summary @ -No Was smoking cessation discussed for >3mins.? @ -No Was critical care preformed (if so, how long)? @ -No Were there social determinants of health that impacted care today? How? (Homelessness, low income, unemployed, alcoholism, drug addiction, transportation, low edu. Level, literacy, decrease access to med. care, fci, rehab)? @ -No Was there de-escalation of care discussed even if they declined (Discuss DNR or withdrawal of care, Hospice)? DNR status @ -No What co-morbidities impacted this encounter? (DM, HTN, Smoking, COPD, CAD, Cancer, CVA, ARF, Chemo, Hep., AIDS, mental health diagnosis, sleep apnea, morbid obesity)? @ -None Was patient admitted / discharged? Hospital course, mention meds given and route, prescriptions, significant lab abnormalities, going to OR and other pertinent info. @ -Discharged had little improvement after migraine cocktail was given. She was given 1 dose of Dilaudid with improvement. No neurological deficit she is discharged in stable condition. Patient follow-up with neurology. Undiagnosed new problem with uncertain prognosis? @ -No Drug Therapy requiring intensive monitoring for toxicity (Heparin, Nitro, Insulin, Cardizem)? @ -No Were any procedures done? @ -No Diagnosis/symptom? @ -migraine Acute, or Chronic, or Acute on Chronic? @ -acute Uncomplicated (without systemic symptoms) or Complicated (systemic symptoms)? @ -uncomplicated Side effects of treatment? @ -No Exacerbation, Progression, or Severe Exacerbation? @ -No Poses a threat to life or bodily function? How? (Chest pain, [place], [place], pneumonia, PE, COPD, DKA, ARF, appy, cholecystitis, CVA, Diverticulitis, Homicidal, Suicidal, threat to staff... and all critical care pts) @ -No Dr. Rojas is my attending Disposition Clinical Impression: Migraine Disposition: HOME SELF-CARE Condition: Good Instructions (If sedation given, give patient instructions): Migraine Headache (ED) Additional Instructions: Follow-up with neurology in 1-2 days. Return to emergency department if you experience new, concerning, or worsening symptoms. Is patient prescribed a controlled substance at d/c from ED?: No Referrals: Isi Carolina MD [Primary Care Provider] - 1-2 days
[2022-11-05 12:28] VITALS: BP 109/76; PULSE 107; RESP 16; TEMP 98.4
== END 2022-11-05 12:28 | disposition home or self-care (01) ==
LOC: EC 10:19
DX: G43.909 Migraine, unspecified, not intractable, without status migrainosus (principal); E11.9 Type 2 diabetes mellitus without complications; J45.909 Unspecified asthma, uncomplicated; K21.9 Gastro-esophageal reflux disease without esophagitis; F32.A Depression, unspecified; F41.9 Anxiety disorder, unspecified; F17.290 Nicotine dependence, other tobacco product, uncomplicated; F12.90 Cannabis use, unspecified, uncomplicated; Z79.4 Long term (current) use of insulin; Z79.84 Long term (current) use of oral hypoglycemic drugs; Z79.899 Other long term (current) drug therapy; Z88.0 Allergy status to penicillin; Z88.1 Allergy status to other antibiotic agents; Z88.2 Allergy status to sulfonamides; Z91.030 Bee allergy status; Z91.040 Latex allergy status; Z88.8 Allergy status to other drugs, medicaments and biological substances; Z90.49 Acquired absence of other specified parts of digestive tract
CPT/HCPCS: 99283; 96374; 96375 ×4; J1200; J1100; J2405; J1885; J1170

== ENCOUNTER 2022-11-08 19:59 | Observation (INO) | payer OTHER ==
--- NOTE | 2022-11-08 21:32 | CT ---
EXAMINATION TYPE: CT abdomen pelvis wo con CT DLP: 1036 mGycm, Automated exposure control for dose reduction was used. DATE OF EXAM: 11/08/2022 9:19 PM COMPARISON: CT abdomen pelvis most recent from 04/10/2022, MR pancreas/MRCP 05/26/2022 . CLINICAL INDICATION:Female, 32 years old with history of abdominal pain; generalized abd pain TECHNIQUE: Standard CT of the abdomen and pelvis without IV or oral contrast. Lack of IV or oral co ntrast limits evaluation of solid and hollow organ viscera. Coronal and sagittal reformats were perfo rmed. FINDINGS: LOWER CHEST: Unremarkable ABDOMEN LIVER: Unremarkable noncontrast appearance GALLBLADDER AND BILE DUCTS: The gallbladder is surgically absent. PANCREAS: Diffuse peripancreatic fat stranding identified without peripancreatic organized fluid chrissy ection. Parenchymal calcifications. SPLEEN: Unremarkable noncontrast appearance ADRENAL GLANDS: Unremarkable noncontrast appearance. KIDNEYS AND URETERS: No evidence of hydronephrosis or renal calculus. PELVIS BLADDER: Unremarkable REPRODUCTIVE: Unremarkable noncontrast appearance ABDOMEN & PELVIS STOMACH AND BOWEL: Stomach and duodenum are unremarkable no focal bowel wall thickening. The appendix is within normal limits. No evidence of bowel obstruction. PERITONEUM: No evidence of pneumoperitoneum or free fluid. VASCULATURE: No evidence of aortic aneurysm. Few pelvic phleboliths. MUSCULOSKELETAL: No acute osseous abnormalities LYMPH NODES: No gross evidence for lymphadenopathy. SOFT TISSUE/ABDOMINAL WALL: Unremarkable IMPRESSION: Acute interstitial edematous pancreatitis. No peripancreatic fluid collections.
[2022-11-08] MEDS ORDERED: KETOROLAC 15 MG/ML 1 ML VIAL IVP STA (21:38)
[2022-11-08 21:55] LABS: Basophils % (A) 1 %; Eosinophils # (A) 0.3 k/uL (0-0.7); Eosinophils % (A) 4 %; HCT 42.1 % (34.0-46.0); HGB 13.6 gm/dL (11.4-16.0); Lymphocytes # (A) 2.8 k/uL (1.0-4.8); Lymphocytes % (A) 41 %; MCH 29.5 pg (25.0-35.0); MCHC 32.2 g/dL (31.0-37.0); MCV 91.6 fL (80.0-100.0); Mean Platelet Volume 8.2; Monocytes # (A) 0.3 k/uL (0-1.0); Monocytes % (A) 4 %; Neutrophils # (A) 3.3 k/uL (1.3-7.7); Neutrophils % (A) 48 %; Platelet Count 284 k/uL (150-450); RDW 14.7 % (11.5-15.5); WBC 6.9 k/uL (3.8-10.6)
[2022-11-08] MEDS ORDERED: ONDANSETRON 4 MG/2 ML VIAL IVP STA (21:57)
[2022-11-08] MEDS ORDERED: MORPHINE SULFATE 4 MG/ML SYRINGE IVP STA (22:00)
[2022-11-08] MEDS ORDERED: ACETAMINOPHEN TAB 500 MG TAB PO STA (22:02)
[2022-11-08 22:16] LABS: ALT 22 U/L (4-34); AST 25 U/L (14-36); African American GFR (CKD) >90 (>60 ml/min/1.73 sqM); Albumin 4.3 g/dL (3.5-5.0); Alkaline Phosphatase 79 U/L (38-126); Amylase 76 U/L (30-110); Anion Gap 11 mmol/L; Blood Urea Nitrogen 16 mg/dL (7-17); Calcium 11.1 mg/dL (8.4-10.2); Carbon Dioxide 24 mmol/L (22-30); Chloride 101 mmol/L (98-107); Glucose 211 mg/dL (74-99); Lipase 713 U/L (23-300); Non-African American GFR(CKD) >90 (>60 ml/min/1.73 sqM); Potassium 4.6 mmol/L (3.5-5.1); Sodium 136 mmol/L (137-145); Total Bilirubin 0.5 mg/dL (0.2-1.3)
[2022-11-08] MEDS ORDERED: diphenhydrAMINE 50 MG/ML 1 ML VIAL IVP STA (22:24)
[2022-11-08 22:26] LABS: Appearance,Urine Clear (Clear); Bilirubin,Urine Negative (Negative); Blood,Urine Small (Negative); Color,Urine Light Yellow; Glucose,Urine (UA) 3+ (Negative); Ketones,Urine Negative (Negative); Leukocyte Esterase,Urine Negative (Negative); Nitrite,Urine Negative (Negative); PH, Urine 6.5 (5.0-8.0); Protein,Urine Negative (Negative); Specific Gravity,Urine 1.015 (1.001-1.035); Urobilinogen,Urine <2.0 mg/dL (<2.0)
[2022-11-08 22:57] LABS: Bacteria,Urine Moderate /hpf; WBC,Urine 6 /hpf (0-5)
[2022-11-08 22:58] LABS: Mucus,Urine Few /hpf; RBC,Urine 0 /hpf (0-5)
[2022-11-08] MEDS ORDERED: HYDROmorphone 1 MG/ML 1 ML SYRINGE IVP STA (23:08)
--- NOTE | 2022-11-08 23:29 | ED ---
Abdominal Pain HPI - General Chief Complaint: Abdominal Pain Stated Complaint: Abdominal Pain, Nausea Time Seen by Provider: 11/08/22 21:02 Source: patient Mode of arrival: ambulatory - History of Present Illness Initial Comments: 82-year-old female with a past medical history significant for abdominal pain presents to the ED with a chief complaint of abdominal pain. Patient states approximately 4 PM today shortly after eating a burger started to experience upper abdominal pain and nausea. Has not had any episodes of vomiting. Denies diarrhea. Denies fever. Denies urinary complaints. No other complaints - Related Data Home Medications Medication Instructions Recorded Confirmed Omeprazole 20 mg PO BID 11/16/21 10/27/22 QUEtiapine FUMARATE [SEROquel XR] 600 mg PO HS 11/16/21 10/27/22 Acetaminophen [Tylenol Extra 500 mg PO Q4H PRN 03/30/22 10/27/22 Strength] Insulin Aspart [NovoLOG Flexpen] See Protocol SQ TID-W/MEALS PRN 03/30/22 10/27/22 Insulin Glargine,Hum.rec.anlog 45 units SQ QAM 03/30/22 10/27/22 [Lantus Solostar Pen] Ondansetron Odt [Zofran ODT] 4 mg SL Q6H PRN 03/30/22 10/27/22 tiZANidine [Zanaflex] 4 mg PO BID PRN 03/30/22 10/27/22 Etonogestrel [Nexplanon] 68 mg INTRADERMA DIRECTED 06/22/22 10/27/22 traMADol HCl [Ultram] 50 mg PO Q8HR PRN 07/30/22 10/27/22 Albuterol Nebulized [Ventolin 2.5 mg INHALATION RT-Q4H PRN 09/18/22 10/27/22 Nebulized] Insulin Aspart [NovoLOG Flexpen] 10 units SQ TID-W/MEALS 09/18/22 10/27/22 Lipase/Protease/Amylase [Zenpep Dr 2 cap PO TID-W/MEALS 09/18/22 10/27/22 5,000 Unit Capsule] Pioglitazone [Actos] 30 mg PO QAM 09/18/22 10/27/22 metFORMIN HCL [Glucophage] 1,000 mg PO BID 10/18/22 10/27/22 Atorvastatin [Lipitor] 80 mg PO HS 10/27/22 10/27/22 EPINEPHrine (Auto Inject) [Epipen] 0.3 mg IM DIRECTED PRN 10/27/22 10/27/22 Fenofibrate [Lofibra] 160 mg PO QAM 10/27/22 10/27/22 Propranolol LA [Inderal LA] 60 mg PO QAM 10/27/22 10/27/22 Previous Rx's Medication Instructions Recorded Ibuprofen [Motrin] 800 mg PO Q8HR PRN #30 tab 06/07/22 Allergies Allergy/AdvReac Type Severity Reaction Status Date / Time bee pollen Allergy Severe Anaphylaxis Verified 11/08/22 20:08 haloperidol lactate Allergy Severe QUIT Verified 11/08/22 20:08 [From Haldol] BREATHING latex Allergy Severe RASH-THROAT Verified 11/08/22 20:08 CLOSES [place] Allergy Anaphylaxis Verified 11/08/22 20:08 coconut Allergy Anaphylaxis Verified 11/08/22 20:08 pineapple Allergy Anaphylaxis Verified 11/08/22 20:08 spider venom Allergy Swelling Verified 11/08/22 20:08 Sulfa (Sulfonamide Allergy Anaphylaxis Verified 11/08/22 20:08 Antibiotics) venom-wasp Allergy Swelling Verified 11/08/22 20:08 venom-wasp protein Allergy Swelling Verified 11/08/22 20:08 promethazine HCl AdvReac Severe Nausea & Verified 11/08/22 20:08 [From Phenergan] Vomiting amoxicillin AdvReac Nausea & Verified 11/08/22 20:08 Vomiting ANTS AdvReac Mild Anaphylaxis Uncoded 11/08/22 20:08 Review of Systems ROS Statement: Those systems with pertinent positive or pertinent negative responses have been documented in the HPI. ROS Other: All systems not noted in ROS Statement are negative. Past Medical History Past Medical History: Asthma, Diabetes Mellitus, GERD/Reflux Additional Past Medical History / Comment(s): migraines, degenerative disk disease, endometriosis, lupus, pancreatitis, DM2- insulin, gastroparesis History of Any Multi-Drug Resistant Organisms: None Reported Past Surgical History: Cholecystectomy, Orthopedic Surgery Additional Past Surgical History / Comment(s): laparoscopc surgery for endometriosis, cyst removed from left foot, EGD, Past Anesthesia/Blood Transfusion Reactions: Previous Problems w/ Anesthesia Additional Past Anesthesia/Blood Transfusion Reaction / Comment(s): hard to wake up for 48-72 hours after laparoscopic surgery-was in hosp. for 3 days Past Psychological History: Anxiety, Depression, PTSD Smoking Status: Former smoker, Vaper Past Alcohol Use History: None Reported Past Drug Use History: Marijuana - Past Family History Mother Family Medical History: Cancer Additional Family Medical History / Comment(s): Migraines, pancreatic cancer, . Father Family Medical History: Coronary Artery Disease (CAD), Hypertension Additional Family Medical History / Comment(s): ddd, alcoholism & drug use Course Vital Signs 11/08/22 20:08 Temperature 98.8 F Pulse Rate 94 Respiratory 18 Rate Blood Pressure 129/94 O2 Sat by Pulse 98 Oximetry Medical Decision Making - Medical Decision Making Was pt. sent in by a medical professional or institution (, PA, SENIOR PACKAGING ENGINEER, urgent care, hospital, or [facility]...) When possible be specific @ -No Did you speak to anyone other than the patient for history (EMS, parent, family, police, friend...)? What history was obtained from this source @ -No Did you review nursing and triage notes (agree or disagree)? Why? @ -I reviewed and agree with nursing and triage notes Were old charts reviewed (outside hosp., previous admission, EMS record, old EKG, old radiological studies, urgent care reports/EKG's, [facility] records)? Report findings @ -No old charts were reviewed Differential Diagnosis (chest pain, altered mental status, abdominal pain women, abdominal pain men, vaginal bleeding, weakness, fever, dyspnea, syncope, headache, dizziness, GI bleed, back pain, seizure, CVA, palpatations, mental health, musculoskeletal)? @ -Differential Abdominal Pain Women: Appendicitis, Cholecystitis, diverticulosis, ischemic bowel, pancreatitis, hepatitis, UTI, gastroenteritis, AAA, incarcerated hernia, bowel obstruction, constipation, inflammatory bowel, hepatitis, peptic ulcer disease, splenic infarction, perforated viscus, vulvitis, ovarian torsion, PID, kidney stone, placenta abruption, this is not meant to be an all-inclusive list EKG interpreted by me (3pts min.). @ -None X-rays interpreted by me (1pt min.). @ -None done CT interpreted by me (1pt min.). @ -CT showed evidence of pancreatitis U/S interpreted by me (1pt. min.). @ -None done What testing was considered but not performed or refused? (CT, X-rays, U/S, labs)? Why? @ -None What meds were considered but not given or refused? Why? @ -None Did you discuss the management of the patient with other professionals (professionals i.e. , PA, SENIOR PACKAGING ENGINEER, lab, RT, psych nurse, social sciences professor, tap and die maker technician, teacher, department of natural resources officer, foster care case manager)? Give summary @ -No Was smoking cessation discussed for >3mins.? @ -No Was critical care preformed (if so, how long)? @ -No Were there social determinants of health that impacted care today? How? (Homelessness, low income, unemployed, alcoholism, drug addiction, transportation, low edu. Level, literacy, decrease access to med. care, [place] [facility], rehab)? @ -No Was there de-escalation of care discussed even if they declined (Discuss DNR or withdrawal of care, Hospice)? DNR status @ -No What co-morbidities impacted this encounter? (DM, HTN, Smoking, COPD, CAD, Cancer, CVA, ARF, Chemo, Hep., AIDS, mental health diagnosis, sleep apnea, morbi d obesity)? @ -Obesity Was patient admitted / discharged? Hospital course, mention meds given and route, prescriptions, significant lab abnormalities, going to OR and other pertinent info. @ -Admitted. CT showed evidence of pancreatitis on laboratory studies did show a lipase of 713 otherwise remainder laboratory studies including liver enzymes unremarkable. At this time, patient afebrile. Patient will be admitted to observation for pain control and will be kept nothing by mouth. Discussed plan of care with patient who is in agreement. Undiagnosed new problem with uncertain prognosis? @ -No Drug Therapy requiring intensive monitoring for toxicity (Heparin, Nitro, Insulin, Cardizem)? @ -No Were any procedures done? @ -No Diagnosis/symptom? @ -Pancreatitis Acute, or Chronic, or Acute on Chronic? @ -Acute Uncomplicated (without systemic symptoms) or Complicated (systemic symptoms)? @ -Uncomplicated Side effects of treatment? @ -No Exacerbation, Progression, or Severe Exacerbation? @ -No Poses a threat to life or bodily function? How? (Chest pain, [place], [place], pneumonia, PE, COPD, DKA, ARF, appy, cholecystitis, CVA, Diverticulitis, Homicidal, Suicidal, threat to staff... and all critical care pts) @ -No - Lab Data Result diagrams: 11/08/22 21:22 11/08/22 21:22 Lab Results 11/08/22 11/08/22 11/08/22 Range/Units 21:22 21:22 21:47 WBC 6.9 (3.8-10.6) k/uL RBC 4.60 (3.80-5.40) m/uL Hgb 13.6 (11.4-16.0) gm/dL Hct 42.1 (34.0-46.0) % MCV 91.6 (80.0-100.0) fL MCH 29.5 (25.0-35.0) pg MCHC 32.2 (31.0-37.0) g/dL RDW 14.7 (11.5-15.5) % Plt Count 284 (150-450) k/uL MPV 8.2 Neutrophils % 48 % Lymphocytes % 41 % Monocytes % 4 % Eosinophils % 4 % Basophils % 1 % Neutrophils # 3.3 (1.3-7.7) k/uL Lymphocytes # 2.8 (1.0-4.8) k/uL Monocytes # 0.3 (0-1.0) k/uL Eosinophils # 0.3 (0-0.7) k/uL Basophils # 0.0 (0-0.2) k/uL Sodium 136 L (137-145) mmol/L Potassium 4.6 (3.5-5.1) mmol/L Chloride 101 (98-107) mmol/L Carbon Dioxide 24 (22-30) mmol/L Anion Gap 11 mmol/L BUN 16 (7-17) mg/dL Creatinine 0.82 (0.52-1.04) mg/dL Est GFR (CKD-EPI)AfAm >90 (>60 ml/min/1.73 sqM) Est GFR (CKD-EPI)NonAf >90 (>60 ml/min/1.73 sqM) Glucose 211 H (74-99) mg/dL Calcium 11.1 H (8.4-10.2) mg/dL Total Bilirubin 0.5 (0.2-1.3) mg/dL AST 25 (14-36) U/L ALT 22 (4-34) U/L Alkaline Phosphatase 79 (38-126) U/L Total Protein 8.0 (6.3-8.2) g/dL Albumin 4.3 (3.5-5.0) g/dL Amylase 76 (30-110) U/L Lipase 713 H (23-300) U/L Urine Color Light Yellow Urine Appearance Clear (Clear) Urine pH 6.5 (5.0-8.0) Ur Specific [place] 1.015 (1.001-1.035) Urine Protein Negative (Negative) Urine Glucose (UA) 3+ (Negative) Urine Ketones Negative (Negative) Urine Blood Small (Negative) Urine Nitrite Negative (Negative) Urine Bilirubin Negative (Negative) Urine Urobilinogen <2.0 (<2.0) mg/dL Ur Leukocyte Esterase Negative (Negative) Urine RBC 0 (0-5) /hpf Urine WBC 6 H (0-5) /hpf Urine Bacteria Moderate H (None) /hpf Urine Mucus Few H (None) /hpf Disposition Clinical Impression: Pancreatitis Disposition: ADMITTED IP TO THIS HOSP Condition: Good Referrals: Isi Carolina MD [Primary Care Provider] - 1-2 days Time of Disposition: 23:00
[2022-11-08] MEDS ORDERED: ACETAMINOPHEN TAB 325 MG TAB PO PRN (23:31)
[2022-11-08] MEDS ORDERED: HYDROmorphone 0.5 MG/0.5 ML SYRINGE IVP PRN (23:31)
[2022-11-08] MEDS ORDERED: ONDANSETRON 4 MG/2 ML VIAL IVP PRN (23:31)
[2022-11-08] MEDS ORDERED: NALOXONE 0.4 MG/ML 1 ML VIAL IV PRN (23:31)
[2022-11-09] MEDS: SODIUM CHLORIDE 0.9% 1,000 ML IV SCH ×3 (00:33→18:08)
[2022-11-09] MEDS: HYDROmorphone 1 MG/ML 1 ML SYRINGE IVP PRN ×2 (03:35→08:47)
[2022-11-09 07:32] LABS: Glucose,Whole Blood 175 mg/dL (70-110)
[2022-11-09] MEDS ORDERED: ACETAMINOPHEN TAB 500 MG TAB PO PRN (12:33)
[2022-11-09] MEDS ORDERED: tiZANidine 4 MG TAB PO PRN (12:33)
[2022-11-09] MEDS ORDERED: ALBUTEROL NEBULIZED 2.5 MG/3 ML INHALATION PRN (12:33)
[2022-11-09] MEDS ORDERED: DEXTROSE 50% SYRINGE 50 ML IVP PRN ×2 (12:35)
[2022-11-09] MEDS ORDERED: diphenhydrAMINE 25 MG CAP PO STA (12:35)
[2022-11-09 12:36] LABS: Glucose,Whole Blood 150 mg/dL (70-110)
[2022-11-09] MEDS: KETOROLAC 15 MG/ML 1 ML VIAL IVP SCH ×2 (13:03→18:05)
--- NOTE | 2022-11-09 13:32 | P.HPIM ---
History of Present Illness H&P Date: 11/09/22 This is a 32-year-old female who presented to the emergency department with abdominal pain. Patient reports after she was eating she started developing increasing abdominal pain with nausea and felt like her pancreatitis was flaring up and came to the ER for further evaluation. Patient has had frequent hospitalizations and multiple rehospitalizations for this and reports she is following up. Patient reports she saw Dr. Bocanegra approximately one month ago as well as had a virtual meeting with her specialist out of [facility] and reports was ordering additional blood tests and genetic testing although has not done so yet. Patient reports she follows with Dr. Raciel Leblanc in the outpatient setting with a past medical history of asthma, diabetes, GERD, degenerative disc disease, lupus, chronic pancreatitis, diabetes mellitus, insulin-dependent, gastroparesis, migraines, anxiety and depression with PTSD. Patient was started on IV fluids and nothing by mouth and admitted for abdominal pain. Patient had a CT abdomen which showed acute interstitial edematous pancreatitis with no peripancreatic fluid collections. Lipase on admission was 713. Patient white count was normal and patient was afebrile. On exam patient continues to report abdominal pain and was started on Dilaudid which will be discontinued and will resume appropriate home medications and will consult GI and appreciate input and recommendations. Patient to be nothing by mouth except ice chips for now and will follow-up with repeat labs and slowly advance diet to clear liquids Review Of Systems: Constitutional: No fever, no chills, no night sweats. No weight change. No weakness, fatigue or lethargy. No daytime sleepiness. EENT: No headache. No blurred vision or double vision, no loss of vision. No loss of Hearing, no ringing in the ears, no dizziness. No nasal drainage or congestion. No epistaxis. No sore throat. Lungs: No shortness of breath, cough, no sputum production. No wheezing. Cardiovascular: No chest pain, no lower extremity edema. No palpitations. No paroxysmal nocturnal dyspnea. No orthopnea. No lightheadedness or dizziness. No syncopal episodes. Abdominal: Reports abdominal pain. Reports nausea, no vomiting. No diarrhea. No constipation. No bloody or tarry stools.. Reports loss of appetite. Genitourinary: No dysuria, increased frequency, urgency. No urinary retention. Musculoskeletal: No myalgias. No muscle weakness, no gait dysfunction, no frequent falls. No back pain. No neck pain. Integumentary: No wounds, no lesions. No rash or pruritus. No unusual bruising. No change in hair or nails. Neurologic: No aphasia. No facial droop. No change in mentation. No head injury. No headache. No paralysis. No paresthesia. Psychiatric: No depression. No anxiety. No mood swings. Endocrine: No abnormal blood sugars. No weight change. No excessive sweating or thirst. No cold intolerance. PHYSICAL EXAMINATION: GENERAL: The patient is alert and oriented x4, Well developed, well nourished. Obese HEENT: Pupils are round and equally reacting to light. EOMI. no scleral icterus. No conjunctival pallor. Normocephalic, atraumatic. No pharyngeal erythema. No thyromegaly. CARDIOVASCULAR: S1 and S2 muffled PULMONARY: diminished breath sounds bilaterally with no wheezing or rhonchi noted. ABDOMEN: soft. tender on exam of the mid epigastric along with left and right upper quadrants on palpation. obese. non-distended, normoactive bowel sounds. No palpable organomegaly. MUSCULOSKELETAL: No joint swelling or deformity. EXTREMITIES: No cyanosis, clubbing, or pedal edema. NEUROLOGICAL: Gross neurological examination did not reveal any focal deficits. SKIN: No rashes. Assessment: Abdominal pain, with chronic pancreatitis Diabetes mellitus, type II, insulin dependent, uncontrolled with hyperglycemia History of asthma, not in exacerbation GERD Migraine history Degenerative disc disease history Lupus history Gastroparesis History of anxiety/depression with PTSD Former smoker GI prophylaxis DVT prophylaxis Full code Plan: Patient will be continued on IV hydration along with GI and DVT prophylaxis. Patient will be nothing by mouth for now except ice chips and will await GI consultation Lipase minimally elevated and will continue gentle IV hydration and repeat labs ordered Start clear liquids in the a.m. and advance slowly as tolerated Dilaudid has been discontinued and we'll continue Toradol and appropriate home medications have been reviewed and resumed Encouraged to increase activity as tolerated Possible discharge in the next 24-48 hours The impression and plan of care has been dictated by My Luz, nurse practitioner as directed. Dr. Magallanes. MD Ramon have performed a history and examination and MDM of this patient, discussed the same with the dictator, and agree with the dictator's assessment and plan as written ,documented as a scribe. Based on total visit time, I have performed more than 50% of the visit. Any additional findings or plans will be noted. Past Medical History Past Medical History: Asthma, Diabetes Mellitus, GERD/Reflux Additional Past Medical History / Comment(s): migraines, degenerative disk disease, endometriosis, lupus, pancreatitis, DM2- insulin, gastroparesis History of Any Multi-Drug Resistant Organisms: None Reported Past Surgical History: Cholecystectomy, Orthopedic Surgery Additional Past Surgical History / Comment(s): laparoscopc surgery for endometriosis, cyst removed from left foot, EGD, Past Anesthesia/Blood Transfusion Reactions: Previous Problems w/ Anesthesia Additional Past Anesthesia/Blood Transfusion Reaction / Comment(s): hard to wake up for 48-72 hours after laparoscopic surgery-was in hosp. for 3 days Past Psychological History: Anxiety, Depression, PTSD Additional Psychological History / Comment(s): Night terrors. Pt is independent, drives. She goes to [facility]. patient states she has borderline personality disorder Smoking Status: Former smoker, Vaper Past Alcohol Use History: None Reported Additional Past Alcohol Use History / Comment(s): states stopped vaping 3 months ago Past Drug Use History: Marijuana Additional Drug Use History / Comment(s): Occasionally vapes with marijuana and states stopped 3 months ago - Past Family History Mother Family Medical History: Cancer Additional Family Medical History / Comment(s): Migraines, pancreatic cancer, . Father Family Medical History: Coronary Artery Disease (CAD), Hypertension Additional Family Medical History / Comment(s): ddd, alcoholism & drug use Medications and Allergies Home Medications Medication Instructions Recorded Confirmed Type Omeprazole 20 mg PO BID 11/16/21 11/09/22 History Acetaminophen [Tylenol Extra 500 mg PO Q4H PRN 03/30/22 11/09/22 History Strength] Insulin Aspart [NovoLOG Flexpen] See Protocol SQ TID-W/MEALS PRN 03/30/22 11/09/22 History Insulin Glargine,Hum.rec.anlog 45 units SQ QAM 03/30/22 11/09/22 History [Lantus Solostar Pen] Ondansetron Odt [Zofran ODT] 4 mg SL Q6H PRN 03/30/22 11/09/22 History tiZANidine [Zanaflex] 4 mg PO BID PRN 03/30/22 11/09/22 History Ibuprofen [Motrin] 800 mg PO Q8HR PRN #30 tab 06/07/22 11/09/22 Rx Etonogestrel [Nexplanon] 68 mg INTRADERMA DIRECTED 06/22/22 11/09/22 History Albuterol Nebulized [Ventolin 2.5 mg INHALATION RT-Q4H PRN 09/18/22 11/09/22 History Nebulized] Insulin Aspart [NovoLOG Flexpen] 10 units SQ TID-W/MEALS 09/18/22 11/09/22 History Lipase/Protease/Amylase [Zenpep Dr 2 cap PO TID-W/MEALS 09/18/22 11/09/22 History 5,000 Unit Capsule] Pioglitazone [Actos] 30 mg PO QAM 09/18/22 11/09/22 History metFORMIN HCL [Glucophage] 1,000 mg PO BID 10/18/22 11/09/22 History Atorvastatin [Lipitor] 80 mg PO HS 10/27/22 11/09/22 History EPINEPHrine (Auto Inject) [Epipen] 0.3 mg IM DIRECTED PRN 10/27/22 11/09/22 History Fenofibrate [Lofibra] 160 mg PO QAM 10/27/22 11/09/22 History QUEtiapine FUMARATE [SEROquel] 600 mg PO HS 11/09/22 11/09/22 History Allergies Allergy/AdvReac Type Severity Reaction Status Date / Time bee pollen Allergy Severe Anaphylaxis Verified 11/09/22 08:32 haloperidol lactate Allergy Severe QUIT Verified 11/09/22 08:32 [From Haldol] BREATHING latex Allergy Severe RASH-THROAT Verified 11/09/22 08:32 CLOSES [place] Allergy Anaphylaxis Verified 11/09/22 08:32 coconut Allergy Anaphylaxis Verified 11/09/22 08:32 pineapple Allergy Anaphylaxis Verified 11/09/22 08:32 spider venom Allergy Swelling Verified 11/09/22 08:32 Sulfa (Sulfonamide Allergy Anaphylaxis Verified 11/09/22 08:32 Antibiotics) venom-wasp Allergy Swelling Verified 11/09/22 08:32 venom-wasp protein Allergy Swelling Verified 11/09/22 08:32 promethazine HCl AdvReac Severe Nausea & Verified 11/09/22 08:32 [From Phenergan] Vomiting amoxicillin AdvReac Nausea & Verified 11/09/22 08:32 Vomiting ANTS AdvReac Mild Anaphylaxis Uncoded 11/08/22 20:08 Physical Exam Vitals: Vital Signs Temp Pulse Pulse Resp BP BP Pulse Ox 11/09/22 00:10 98.1 F 85 14 119/85 97 11/08/22 23:12 99 16 146/98 97 11/08/22 20:08 98.8 F 94 18 129/94 98 Intake and Output 11/08/22 11/09/22 11/09/22 22:59 06:59 14:59 Other: Weight 97.522 kg 97.522 kg Results CBC & Chem 7: 11/08/22 21:22 11/08/22 21:22 Labs: Abnormal Lab Results - Last 24 Hours (Table) 11/08/22 11/08/22 11/09/22 Range/Units 21:22 21:47 07:31 Sodium 136 L (137-145) mmol/L Glucose 211 H (74-99) mg/dL POC Glucose (mg/dL) 175 H (70-110) mg/dL Calcium 11.1 H (8.4-10.2) mg/dL Lipase 713 H (23-300) U/L Urine WBC 6 H (0-5) /hpf Urine Bacteria Moderate H (None) /hpf Urine Mucus Few H (None) /hpf Thrombosis Risk Factor Assmnt - Choose All That Apply Each Factor Represents 1 point: Obesity (BMI >25) Thrombosis Risk Factor Assessment Total Risk Factor Score: 1 Thrombosis Risk Factor Assessment Level: Low Risk Assessment and Plan Time with Patient: Greater than 30
--- NOTE | 2022-11-09 14:44 | P.CONS ---
History of Present Illness - Reason for Consult Consult date: 11/09/22 Pancreatitis Requesting physician: My Luz - Chief Complaint Abdominal pain - History of Present Illness This is a 32-year-old female with a history of recurrent pancreatitis for unknown etiology. Patient has follow-up with gastro-enterology in the past and has been referred down to [facility] for which she has followed with a specialist and is continuing with the workup. Patient also states she was diagnosed with gastroparesis and waiting to schedule gastric emptying test. She states that she's been getting pancreatitis about once per month. She is known to the emergency room and frequents for abdominal pain and headache. Patient states she ate a hamburger yesterday and following that she had severe abdominal pain came into the emergency department for abdominal pain. CT abdomen and pelvis shows acute uncomplicated pancreatitis. Lipase was elevated at 713. Otherwise labs are unremarkable. Patient states abdominal pain somewhat better. Has nausea but no vomiting. Last bowel movement 2 days ago. Review of Systems REVIEW OF SYSTEMS: CARDIOPULMONARY: No chest pain or shortness of breath. Gastrointestinal: Epigastric right upper quadrant pain. Nausea with no vomiting. No hematemesis, coffee-ground emesis. No rectal bleeding, or melena. GENITOURINARY: No dysuria or hematuria. MUSCULOSKELETAL: Reports normal range of motion. SKIN: No rashes. No jaundice. ENDOCRINE: No chills, fevers. No excessive weight gain or loss. No polydipsia or polyuria. PSYCHIATRIC: Unremarkable. NEUROLOGY: No change in mental status. Denies dizziness, headache. ENT: Vision unremarkable. CONSTITUTIONAL: No recent weight loss. No fever, chills, night sweats. Past Medical History Past Medical History: Asthma, Diabetes Mellitus, GERD/Reflux Additional Past Medical History / Comment(s): migraines, degenerative disk disease, endometriosis, lupus, pancreatitis, DM2- insulin, gastroparesis History of Any Multi-Drug Resistant Organisms: None Reported Past Surgical History: Cholecystectomy, Orthopedic Surgery Additional Past Surgical History / Comment(s): laparoscopc surgery for endometriosis, cyst removed from left foot, EGD, Past Anesthesia/Blood Transfusion Reactions: Previous Problems w/ Anesthesia Additional Past Anesthesia/Blood Transfusion Reaction / Comm: hard to wake up for 48-72 hours after laparoscopic surgery-was in hosp. for 3 days Past Psychological History: Anxiety, Depression, PTSD Additional Psychological History / Comment(s): Night terrors. Pt is independent, drives. She goes to [facility]. patient states she has borderline personality disorder Smoking Status: Former smoker, Vaper Past Alcohol Use History: None Reported Additional Past Alcohol Use History / Comment(s): states stopped vaping 3 months ago Past Drug Use History: Marijuana Additional Drug Use History / Comment(s): Occasionally vapes with marijuana and states stopped 3 months ago - Past Family History Mother Family Medical History: Cancer Additional Family Medical History / Comment(s): Migraines, pancreatic cancer, . Father Family Medical History: Coronary Artery Disease (CAD), Hypertension Additional Family Medical History / Comment(s): ddd, alcoholism & drug use Medications and Allergies Home Medications Medication Instructions Recorded Confirmed Type Omeprazole 20 mg PO BID 11/16/21 11/09/22 History Acetaminophen [Tylenol Extra 500 mg PO Q4H PRN 03/30/22 11/09/22 History Strength] Insulin Aspart [NovoLOG Flexpen] See Protocol SQ TID-W/MEALS PRN 03/30/22 11/09/22 History Insulin Glargine,Hum.rec.anlog 45 units SQ QAM 03/30/22 11/09/22 History [Lantus Solostar Pen] Ondansetron Odt [Zofran ODT] 4 mg SL Q6H PRN 03/30/22 11/09/22 History tiZANidine [Zanaflex] 4 mg PO BID PRN 03/30/22 11/09/22 History Ibuprofen [Motrin] 800 mg PO Q8HR PRN #30 tab 06/07/22 11/09/22 Rx Etonogestrel [Nexplanon] 68 mg INTRADERMA DIRECTED 06/22/22 11/09/22 History Albuterol Nebulized [Ventolin 2.5 mg INHALATION RT-Q4H PRN 09/18/22 11/09/22 History Nebulized] Insulin Aspart [NovoLOG Flexpen] 10 units SQ TID-W/MEALS 09/18/22 11/09/22 History Lipase/Protease/Amylase [Zenpep Dr 2 cap PO TID-W/MEALS 09/18/22 11/09/22 Histo ry 5,000 Unit Capsule] Pioglitazone [Actos] 30 mg PO QAM 09/18/22 11/09/22 History metFORMIN HCL [Glucophage] 1,000 mg PO BID 10/18/22 11/09/22 History Atorvastatin [Lipitor] 80 mg PO HS 10/27/22 11/09/22 History EPINEPHrine (Auto Inject) [Epipen] 0.3 mg IM DIRECTED PRN 10/27/22 11/09/22 History Fenofibrate [Lofibra] 160 mg PO QAM 10/27/22 11/09/22 History QUEtiapine FUMARATE [SEROquel] 600 mg PO HS 11/09/22 11/09/22 History Allergies Allergy/AdvReac Type Severity Reaction Status Date / Time bee pollen Allergy Severe Anaphylaxis Verified 11/09/22 08:32 haloperidol lactate Allergy Severe QUIT Verified 11/09/22 08:32 [From Haldol] BREATHING latex Allergy Severe RASH-THROAT Verified 11/09/22 08:32 CLOSES [place] Allergy Anaphylaxis Verified 11/09/22 08:32 coconut Allergy Anaphylaxis Verified 11/09/22 08:32 pineapple Allergy Anaphylaxis Verified 11/09/22 08:32 spider venom Allergy Swelling Verified 11/09/22 08:32 Sulfa (Sulfonamide Allergy Anaphylaxis Verified 11/09/22 08:32 Antibiotics) venom-wasp Allergy Swelling Verified 11/09/22 08:32 venom-wasp protein Allergy Swelling Verified 11/09/22 08:32 promethazine HCl AdvReac Severe Nausea & Verified 11/09/22 08:32 [From Phenergan] Vomiting amoxicillin AdvReac Nausea & Verified 11/09/22 08:32 Vomiting ANTS AdvReac Mild Anaphylaxis Uncoded 11/08/22 20:08 Physical Exam Vitals: Vital Signs Temp Pulse Pulse Resp BP BP Pulse Ox 11/09/22 07:00 98 F 96 16 111/75 98 11/09/22 00:10 98.1 F 85 14 119/85 97 11/08/22 23:12 99 16 146/98 97 11/08/22 20:08 98.8 F 94 18 129/94 98 Intake and Output 11/08/22 11/09/22 11/09/22 22:59 06:59 14:59 Other: Weight 97.522 kg 97.522 kg General appearance: The patient is alert, oriented, appears in no acute distress. Morbidly obese. HET: Head is normocephalic and atraumatic. Conjunctiva pink. Sclera anicteric. Neck: Supple without lymphadenopathy. Trachea midline. Heart: S1 S2. Regular rate and rhythm. Lungs: Clear to auscultation. Abdomen: Soft, epigastric tenderness, nondistended. No guarding or rigidity. Skin: No rashes. No jaundice. Extremities: Normal skin color and turgor. No pedal edema. Neurological: No focal deficits. Alert and oriented x3. Results CBC & Chem 7: 11/08/22 21:22 11/08/22 21:22 Labs: Abnormal Lab Results - Last 24 Hours (Table) 11/08/22 11/08/22 11/09/22 Range/Units 21:22 21:47 07:31 Sodium 136 L (137-145) mmol/L Glucose 211 H (74-99) mg/dL POC Glucose (mg/dL) 175 H (70-110) mg/dL Calcium 11.1 H (8.4-10.2) mg/dL Lipase 713 H (23-300) U/L Urine WBC 6 H (0-5) /hpf Urine Bacteria Moderate H (None) /hpf Urine Mucus Few H (None) /hpf CT scan - abdomen: report reviewed (Acute interstitial edematous pancreatitis. No peripancreatic fluid collection.) Assessment and Plan (1) Acute pancreatitis Narrative/Plan: 32-year-old female with multiple episodes of recurrent pancreatitis of unknown etiology. Patient has been referred to the [facility] where she is following with GI specialist there. They are still doing workup. 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 CT showing acute uncomplicated pancreatitis. Lipase 713 on admission are trending down to 187. Advance diet to clear liquid diet and advance in the morning. Likely discharge home tomorrow. Follow-up with [facility] as scheduled. Current Visit: Yes Status: Acute Code(s): K85.90 - ACUTE PANCREATITIS WITHOUT NECROSIS OR INFECTION, UNSP SNOMED Code(s): 248255570 Plan: 1. Continue with symptomatic and supportive care 2. Continue with aggressive IV hydration 3. Pain medication as needed 4. Patient may have clear liquid diet advance to low-fat diet in the morning 5. No further GI workup indicated 6. Anticipate discharge tomorrow and follow-up with [facility] as scheduled Thank you for this consultation, we will continue to follow. Dr. Aldo Bocanegra I agree with the dictator's note, documented as a scribe by Roxana Torres.
[2022-11-09 17:13] LABS: Glucose,Whole Blood 139 mg/dL (70-110)
[2022-11-09] MEDS: INSULIN ASPART (NovoLOG) 100 UNIT/ML VIAL SQ SCH ×3 (17:50→21:25)
[2022-11-09] MEDS: LIPASE 5,000/PROTEASE 17,000/AMYLASE 24,000 PO SCH (18:05)
[2022-11-09 20:48] LABS: Glucose,Whole Blood 228 mg/dL (70-110)
[2022-11-09] MEDS ORDERED: QUEtiapine 200 MG TAB PO SCH (21:00)
[2022-11-09] MEDS ORDERED: ATORVASTATIN 80 MG TAB PO SCH (21:00)
[2022-11-09] MEDS: PANTOPRAZOLE 40 MG TABLET PO SCH (21:25)
[2022-11-10] MEDS: KETOROLAC 15 MG/ML 1 ML VIAL IVP SCH ×3 (00:19→12:48)
[2022-11-10] MEDS: SODIUM CHLORIDE 0.9% 1,000 ML IV SCH (04:14)
[2022-11-10 05:57] LABS: Glucose,Whole Blood 169 mg/dL (70-110)
[2022-11-10] MEDS: INSULIN ASPART (NovoLOG) 100 UNIT/ML VIAL SQ SCH ×4 (06:07→13:23)
[2022-11-10] MEDS ORDERED: INSULIN DETEMIR (LEVEMIR) 100 UNIT/ML SYR SQ SCH (07:00)
[2022-11-10 07:51] VITALS: BP 124/96; PULSE 91; RESP 14; TEMP 98.5
[2022-11-10] MEDS ORDERED: PIOGLITAZONE 30 MG TAB PO SCH (09:00)
[2022-11-10] MEDS ORDERED: FENOFIBRATE 160 MG TAB PO SCH (09:00)
[2022-11-10] MEDS: LIPASE 5,000/PROTEASE 17,000/AMYLASE 24,000 PO SCH ×2 (09:06→13:23)
[2022-11-10] MEDS: PANTOPRAZOLE 40 MG TABLET PO SCH (09:07)
--- NOTE | 2022-11-10 12:24 | P.PN ---
Subjective Progress Note Date: 11/10/22 Principal diagnosis: Pancreatitis Objective - Vital Signs Vital signs: Vital Signs Temp 98.5 F 11/10/22 07:00 Pulse 91 11/10/22 07:00 Resp 14 11/10/22 07:00 BP 124/96 11/10/22 07:00 Pulse Ox 96 11/10/22 07:00 FiO2 Intake & Output 11/09/22 11/10/22 11/10/22 18:59 06:59 18:59 Other: # Voids 2 0 # Bowel Movements 0 - Exam General appearance: The patient is alert, oriented, appears in no acute distress. HET: Head is normocephalic and atraumatic. Conjunctiva pink. Sclera anicteric. Neck: Supple without lymphadenopathy. Abdomen: Soft, nontender, nondistended with bowel sounds. No guarding or rigidity. Extremities: Normal skin color and turgor. No pedal edema Skin: No rashes, no jaundice Neurological: No focal deficits. Alert and oriented. - Labs CBC & Chem 7: 11/08/22 21:22 11/08/22 21:22 Labs: Abnormal Lab Results - Last 24 Hours (Table) 11/09/22 11/09/22 11/09/22 Range/Units 12:35 17:12 20:46 POC Glucose (mg/dL) 150 H 139 H 228 H (70-110) mg/dL 11/10/22 Range/Units 05:56 POC Glucose (mg/dL) 169 H (70-110) mg/dL Assessment and Plan (1) Acute pancreatitis Narrative/Plan: 32-year-old female with multiple episodes of recurrent pancreatitis of unknown etiology. Patient has been referred to the [facility] where she is following with GI specialist there. They are still doing workup. She states they believe it is stenotic also referring her to an fur matcher for thyroid disease. CT showing acute uncomplicated pancreatitis. Lipase 713 on admission are trending down to 187. Advance diet to clear liquid diet and advance in the morning. Likely discharge home tomorrow. Follow-up with [facility] as scheduled. Current Visit: Yes Status: Acute Code(s): K85.90 - ACUTE PANCREATITIS WITHOUT NECROSIS OR INFECTION, UNSP SNOMED Code(s): 139217297 Plan: 1. Continue with symptomatic and supportive care 2. Advance to low-fat diet 3. Pain medication as needed 4. No further GI workup indicated Patient is cleared for discharge from gastroenterology. She is to follow-up with [facility] as scheduled Thank you for this consultation, we will sign off at this time. Dr. Aldo Bocanegra I agree with the dictator's note, documented as a scribe by Roxana Torres.
[2022-11-10 12:40] LABS: Glucose,Whole Blood 239 mg/dL (70-110)
--- NOTE | 2022-11-13 23:12 | P.DS ---
Providers Date of admission: 11/08/22 23:33 Expected date of discharge: 11/10/22 Attending physician: Steven Ramirez Consults: 11/09/22 09:37 Consult Physician Urgent Consulting Provider: Katarzyna Bocanegra Consult Reason/Comments: pancreatitis Do you want consulting provider notified?: Yes [facility] Course: Final diagnosis Abdominal pain, with chronic pancreatitis Diabetes mellitus, type II, insulin dependent, uncontrolled with hyperglycemia History of asthma, not in exacerbation GERD Migraine history Degenerative disc disease history Lupus history Gastroparesis History of anxiety/depression with PTSD Former smoker GI prophylaxis DVT prophylaxis Full code Discharge disposition Patient is being discharged in a stable condition with guarded prognosis to home. Patient will follow-up with Dr. Raciel Leblanc in the outpatient setting upon discharge. Patient is to continue with current medications and close outpatient follow-up with GI and her specialist at [facility] as scheduled. Total time taken is greater than 35 minutes. Hospital course This is a 32-year-old female who was recently admitted with abdominal pain with chronic pancreatitis. Lipase minimally elevated patient was maintained on IV hydration with antinausea medications and will rest and was evaluated by GI. Patient was started slowly on clear liquid and advanced diet and patient was able to tolerate some although very little. Patient reported feeling slightly improved and had been cleared by GI for outpatient follow-up. Please refer to other consultations notes for further HPI. Currently no reports of chest pain, shortness of breath, or palpitations. Patient is afebrile. No reports of nausea or vomiting and patient is tolerating diet. Patient will be discharged home today. High risk for readmissions as patient has had frequent and multiple hospitalizations and ER visits for continued abdominal pain and noncompliance with diet, outpatient follow-up, and medications. Physical exam: Gen: This is a 32-year-old female who is awake, alert and oriented 3, well- developed, well-nourished, obese HEENT: Head is atraumatic, normocephalic. Pupils equal, round. Sclerae is anicteric. NECK: Supple. No JVD. No lymphadenopathy. No thyromegaly. LUNGS: Clear to auscultation. No wheezes or rhonchi. No intercostal retractions. HEART: Regular rate and rhythm. No murmur. ABDOMEN: Soft. Obese, tender on palpation on the left upper and mid quadrants. Bowel sounds are present. No masses. EXTREMITIES: No pedal edema. No calf tenderness. NEUROLOGICAL: Patient is awake, alert and oriented x3. Cranial nerves 2 through 12 are grossly intact. Please refer to medication reconciliation sheet for a list of medications. The impression and plan of care has been dictated by My Luz, Nurse Practitioner as directed. Dr. Elpidio MD I have performed a history and examination and MDM of this patient, discussed the same with the dictator, and agree with the dictator's assessment and plan as written ,documented as a scribe. Based on total visit time, I have performed more than 50% of the visit. Patient Condition at Discharge: Good Plan - Discharge Summary New Discharge Prescriptions: Continue Omeprazole 20 mg PO BID Ondansetron Odt [Zofran ODT] 4 mg SL Q6H PRN PRN Reason: Nausea Insulin Aspart [NovoLOG Flexpen] 10 units SQ TID-W/MEALS Fenofibrate [Lofibra] 160 mg PO QAM Atorvastatin [Lipitor] 80 mg PO HS EPINEPHrine (Auto Inject) [Epipen] 0.3 mg IM DIRECTED PRN PRN Reason: Allergic Reaction Acetaminophen [Tylenol Extra Strength] 500 mg PO Q4H PRN PRN Reason: Pain Or Fever > 100.5 Insulin Aspart [NovoLOG Flexpen] See Protocol SQ TID-W/MEALS PRN PRN Reason: HIGH BLOOD SUGAR Insulin Glargine,Hum.rec.anlog [Lantus Solostar Pen] 45 units SQ QAM tiZANidine [Zanaflex] 4 mg PO BID PRN PRN Reason: muscle spasms Ibuprofen [Motrin] 800 mg PO Q8HR PRN #30 tab PRN Reason: Pain Etonogestrel [Nexplanon] 68 mg INTRADERMA DIRECTED Lipase/Protease/Amylase [Zenpep Dr 5,000 Unit Capsule] 2 cap PO TID-W/MEALS Pioglitazone [Actos] 30 mg PO QAM Albuterol Nebulized [Ventolin Nebulized] 2.5 mg INHALATION RT-Q4H PRN PRN Reason: difficulty in breathing metFORMIN HCL [Glucophage] 1,000 mg PO BID QUEtiapine FUMARATE [SEROquel] 600 mg PO HS Discharge Medication List Omeprazole 20 mg PO BID 11/16/21 [History] Acetaminophen [Tylenol Extra Strength] 500 mg PO Q4H PRN 03/30/22 [History] Insulin Aspart [NovoLOG Flexpen] See Protocol SQ TID-W/MEALS PRN 03/30/22 [History] Insulin Glargine,Hum.rec.anlog [Lantus Solostar Pen] 45 units SQ QAM 03/30/22 [History] Ondansetron Odt [Zofran ODT] 4 mg SL Q6H PRN 03/30/22 [History] tiZANidine [Zanaflex] 4 mg PO BID PRN 03/30/22 [History] Ibuprofen [Motrin] 800 mg PO Q8HR PRN #30 tab 06/07/22 [Rx] Etonogestrel [Nexplanon] 68 mg INTRADERMA DIRECTED 06/22/22 [History] Albuterol Nebulized [Ventolin Nebulized] 2.5 mg INHALATION RT-Q4H PRN 09/18/22 [History] Insulin Aspart [NovoLOG Flexpen] 10 units SQ TID-W/MEALS 09/18/22 [History] Lipase/Protease/Amylase [Zenpep Dr 5,000 Unit Capsule] 2 cap PO TID-W/MEALS 09/18/22 [History] Pioglitazone [Actos] 30 mg PO QAM 09/18/22 [History] metFORMIN HCL [Glucophage] 1,000 mg PO BID 10/18/22 [History] Atorvastatin [Lipitor] 80 mg PO HS 10/27/22 [History] EPINEPHrine (Auto Inject) [Epipen] 0.3 mg IM DIRECTED PRN 10/27/22 [History] Fenofibrate [Lofibra] 160 mg PO QAM 10/27/22 [History] QUEtiapine FUMARATE [SEROquel] 600 mg PO HS 11/09/22 [History] Follow up Appointment(s)/Referral(s): Katarzyna Bocanegra MD [STAFF PHYSICIAN] - 1 Week Isi Carolina MD [Primary Care Provider] - 1-2 days Patient Instructions/Handouts: Pancreatitis (DC) Discharge Disposition: HOME SELF-CARE
[2022-11-14] MEDS ORDERED: IBUPROFEN 800 MG TAB PO PRN (12:00)
== END 2022-11-10 14:52 | disposition home or self-care (01) ==
LOC: EC 19:59 → 6NMEDSUR 23:33
PROVIDERS: ADMIT Internal Medicine; ATTEND Internal Medicine
DX: K85.80 Other acute pancreatitis without necrosis or infection (principal); K86.1 Other chronic pancreatitis; J45.909 Unspecified asthma, uncomplicated; K21.9 Gastro-esophageal reflux disease without esophagitis; G43.909 Migraine, unspecified, not intractable, without status migrainosus; M32.9 Systemic lupus erythematosus, unspecified; E11.43 Type 2 diabetes mellitus with diabetic autonomic (poly)neuropathy; K31.84 Gastroparesis; F32.A Depression, unspecified; F43.10 Post-traumatic stress disorder, unspecified; E66.01 Morbid (severe) obesity due to excess calories; Z87.891 Personal history of nicotine dependence; Z79.4 Long term (current) use of insulin; Z79.84 Long term (current) use of oral hypoglycemic drugs; Z79.899 Other long term (current) drug therapy; Z91.040 Latex allergy status; Z88.2 Allergy status to sulfonamides; Z88.0 Allergy status to penicillin
CPT/HCPCS: 96361; 96372; 96376 ×2; 96374; 96375; 99285; 36415; 80053; 82150; 83690 ×2; 85025; 81001; 74176; G0378 ×4; J1200; J2405; J1170 ×2; J1885 ×3

== ENCOUNTER 2022-11-15 15:19 | Emergency (ER) | payer OTHER ==
[2022-11-15 15:23] VITALS: BP 119/81; PULSE 109; RESP 20; TEMP 99
--- NOTE | 2022-11-15 15:28 | ED ---
Abdominal Pain HPI - General Chief Complaint: Abdominal Pain Stated Complaint: headache,stomach pain Time Seen by Provider: 11/15/22 15:26 Source: patient, RN notes reviewed, old records reviewed Mode of arrival: ambulatory Limitations: no limitations - History of Present Illness Initial Comments: This is a 32-year-old female who presents today for evaluation of abdominal pain. Patient is well-known to our emergency department for abdominal pain and chronic abdominal issues chronic pain issues. Patient is no travel history no sick contacts no other complaints. Patient is long, give medical history of pain, abdominal issues and surgical issues MD Complaint: abdominal pain -: days(s) Location: diffuse, periumbilical, epigastric, suprapubic Radiation: epigastric, suprapubic Severity: moderate Severity scale (1-10): 4 Quality: aching Consistency: constant Improves With: nothing Worsens With: nothing Associated Symptoms: nausea, constipation Treatments Prior to Arrival: other (0) - Related Data Home Medications Medication Instructions Recorded Confirmed Omeprazole 20 mg PO BID 11/16/21 11/09/22 Acetaminophen [Tylenol Extra 500 mg PO Q4H PRN 03/30/22 11/09/22 Strength] Insulin Aspart [NovoLOG Flexpen] See Protocol SQ TID-W/MEALS PRN 03/30/22 11/09/22 Insulin Glargine,Hum.rec.anlog 45 units SQ QAM 03/30/22 11/09/22 [Lantus Solostar Pen] Ondansetron Odt [Zofran ODT] 4 mg SL Q6H PRN 03/30/22 11/09/22 tiZANidine [Zanaflex] 4 mg PO BID PRN 03/30/22 11/09/22 Etonogestrel [Nexplanon] 68 mg INTRADERMA DIRECTED 06/22/22 11/09/22 Albuterol Nebulized [Ventolin 2.5 mg INHALATION RT-Q4H PRN 09/18/22 11/09/22 Nebulized] Insulin Aspart [NovoLOG Flexpen] 10 units SQ TID-W/MEALS 09/18/22 11/09/22 Lipase/Protease/Amylase [Zenpep Dr 2 cap PO TID-W/MEALS 09/18/22 11/09/22 5,000 Unit Capsule] Pioglitazone [Actos] 30 mg PO QAM 09/18/22 11/09/22 metFORMIN HCL [Glucophage] 1,000 mg PO BID 10/18/22 11/09/22 Atorvastatin [Lipitor] 80 mg PO HS 10/27/22 11/09/22 EPINEPHrine (Auto Inject) [Epipen] 0.3 mg IM DIRECTED PRN 10/27/22 11/09/22 Fenofibrate [Lofibra] 160 mg PO QAM 10/27/22 11/09/22 QUEtiapine FUMARATE [SEROquel] 600 mg PO HS 11/09/22 11/09/22 Previous Rx's Medication Instructions Recorded Ibuprofen [Motrin] 800 mg PO Q8HR PRN #30 tab 06/07/22 Allergies Allergy/AdvReac Type Severity Reaction Status Date / Time bee pollen Allergy Severe Anaphylaxis Verified 11/15/22 15:23 haloperidol lactate Allergy Severe QUIT Verified 11/15/22 15:23 [From Haldol] BREATHING latex Allergy Severe RASH-THROAT Verified 11/15/22 15:23 CLOSES murri[place] Allergy Anaphylaxis Verified 11/15/22 15:23 coconut Allergy Anaphylaxis Verified 11/15/22 15:23 pineapple Allergy Anaphylaxis Verified 11/15/22 15:23 spider venom Allergy Swelling Verified 11/15/22 15:23 Sulfa (Sulfonamide Allergy Anaphylaxis Verified 11/15/22 15:23 Antibiotics) venom-wasp Allergy Swelling Verified 11/15/22 15:23 venom-wasp protein Allergy Swelling Verified 11/15/22 15:23 promethazine HCl AdvReac Severe Nausea & Verified 11/15/22 15:23 [From Phenergan] Vomiting amoxicillin AdvReac Nausea & Verified 11/15/22 15:23 Vomiting ANTS AdvReac Mild Anaphylaxis Uncoded 11/15/22 15:23 Review of Systems ROS Statement: Those systems with pertinent positive or pertinent negative responses have been documented in the HPI. ROS Other: All systems not noted in ROS Statement are negative. Past Medical History Past Medical History: Asthma, Diabetes Mellitus, GERD/Reflux Additional Past Medical History / Comment(s): migraines, degenerative disk disease, endometriosis, lupus, pancreatitis, DM2- insulin, gastroparesis History of Any Multi-Drug Resistant Organisms: None Reported Past Surgical History: Cholecystectomy, Orthopedic Surgery Additional Past Surgical History / Comment(s): laparoscopc surgery for endometriosis, cyst removed from left foot, EGD, Past Anesthesia/Blood Transfusion Reactions: Previous Problems w/ Anesthesia Additional Past Anesthesia/Blood Transfusion Reaction / Comment(s): hard to wake up for 48-72 hours after laparoscopic surgery-was in hosp. for 3 days Past Psychological History: Anxiety, Depression, PTSD Smoking Status: Former smoker, Vaper Past Alcohol Use History: None Reported Past Drug Use History: Marijuana - Past Family History Mother Family Medical History: Cancer Additional Family Medical History / Comment(s): Migraines, pancreatic cancer, . Father Family Medical History: Coronary Artery Disease (CAD), Hypertension Additional Family Medical History / Comment(s): ddd, alcoholism & drug use General Exam Limitations: no limitations General appearance: alert, in no apparent distress, anxious, lethargic, obese Head exam: Present: atraumatic, normocephalic, normal inspection Eye exam: Present: normal appearance, PERRL, EOMI. Absent: scleral icterus, conjunctival injection, periorbital swelling ENT exam: Present: normal exam, mucous membranes dry Neck exam: Present: normal inspection. Absent: tenderness, meningismus, lymphadenopathy Respiratory exam: Present: normal lung sounds bilaterally. Absent: respiratory distress, wheezes, rales, rhonchi, stridor Cardiovascular Exam: Present: normal rhythm, tachycardia, normal heart sounds. Absent: systolic murmur, diastolic murmur, rubs, gallop, clicks GI/Abdominal exam: Present: soft, normal bowel sounds. Absent: distended, ten derness, guarding, rebound, rigid Extremities exam: Present: normal inspection, full ROM, normal capillary refill. Absent: tenderness, pedal edema, joint swelling, calf tenderness Back exam: Present: normal inspection Neurological exam: Present: alert, oriented X3, CN II-XII intact Psychiatric exam: Present: normal affect, normal mood Skin exam: Present: warm, dry, intact, normal color. Absent: rash Course Vital Signs 11/15/22 15:20 Temperature 99 F Pulse Rate 109 H Respiratory 20 Rate Blood Pressure 119/81 O2 Sat by Pulse 98 Oximetry - Reevaluation(s) Reevaluation #1: 11/15/22 15:46 Medical records reviewed Reevaluation #2: 11/15/22 15:46 Patient symptoms improved Reevaluation #3: 11/15/22 15:46 Patient informed results questions answered Reevaluation #4: 11/15/22 15:46 Was pt. sent in by a medical professional or institution (SADE López, PROCESS OWNER, urgent care, hospital, or senior living...) When possible be specific @ -no Did you speak to anyone other than the patient for history (EMS, parent, family, police, friend...)? What history was obtained from this source @ -no Did you review nursing and triage notes (agree or disagree)? Why? @ -agree Are old charts reviewed (outside hosp., previous admission, EMS record, old EKG, old radiological studies, urgent care reports/EKG's, senior living records)? Report findings @ -yes Differential Diagnosis (chest pain, altered mental status, abdominal pain women, abdominal pain men, vaginal bleeding, weakness, fever, dyspnea, syncope, headache, dizziness, GI bleed, back pain, seizure, CVA, palpatations, mental health, musculoskeletal)? @ -prior EKG interpreted by me (3pts min.). @ -no X-rays interpreted by me (1pt min.). @ -no CT interpreted by me (1pt min.). @ -no U/S interpreted by me (1pt. min.). @ -no What testing was considered but not performed or refused? (CT, X-rays, U/S, labs)? Why? @ -none What meds were considered but not given or refused? Why? @ -none Did you discuss the management of the patient with other professionals (professionals i.e. SADE López, PROCESS OWNER, lab, RT, psych nurse, health social work professor, securities settlement processor, teacher, property and supply officer, rifle case repairer)? Give summary @ -no Was smoking cessation discussed for >3mins.? @ -no Was critical care preformed (if so, how long)? @ -no Were there social determinants of health that impacted care today? How? (Homelessness, low income, unemployed, alcoholism, drug addiction, transportation, low edu. Level, literacy, decrease access to med. care, half-way, rehab)? @ -none Was there de-escalation of care discussed even if they declined (Discuss DNR or withdrawal of care, Hospice)? DNR status @ -no What co-morbidities impacted this encounter? (DM, HTN, Smoking, COPD, CAD, Cancer, CVA, ARF, Chemo, Hep., AIDS, mental health diagnosis, sleep apnea, morbid obesity)? @ -none Was patient admitted / discharged? Hospital course, mention meds given and route, prescriptions, significant lab abnormalities, going to OR and other pertinent info. @ - 32 female to the emergency department for evaluation of chronic abdominal pain. Patient given pain control here in the ER, no distress vital signs are normal will be discharged home, patient did have hospital admission last week for pancreatitis, patient is tolerating oral intake discharged Undiagnosed new problem with uncertain prognosis? @ -no Drug Therapy requiring intensive monitoring for toxicity (Heparin, Nitro, Insulin, Cardizem)? @ -no Were any procedures done? @ -no Diagnosis/symptom? @ -Chronic abdominal pain, nausea vomiting Acute, or Chronic, or Acute on Chronic? @ -Acute Uncomplicated (without systemic symptoms) or Complicated (systemic symptoms)? @ -Complicated Side effects of treatment? @ -no Exacerbation, Progression, or Severe Exacerbation? @ -exacerbation Poses a threat to life or bodily function? How? (Chest pain, USA, [place], pneumonia, PE, COPD, DKA, ARF, appy, cholecystitis, CVA, Diverticulitis, Homicidal, Suicidal, threat to staff... and all critical care pts) @ -no Reevaluation #5: 11/15/22 15:46 Differential Abdominal Pain Men: Appendicitis, cholecystitis, diverticulosis, ischemic bowel, pancreatitis, hepatitis, UTI, gastroenteritis, AAA, incarcerated hernia, bowel obstruction, constipation, inflammatory bowel, hepatitis, peptic ulcer disease, splenic infarction, perforated viscus, testicular torsion, this is not meant to be an all-inclusive list Medical Decision Making - Medical Decision Making 32 female to the emergency department for evaluation of chronic abdominal pain. Patient given pain control here in the ER, no distress vital signs are normal will be discharged home, patient did have hospital admission last week for pancreatitis, patient is tolerating oral intake Disposition Clinical Impression: Abdominal pain, Chronic abdominal pain Disposition: HOME SELF-CARE Condition: Good Instructions (If sedation given, give patient instructions): Abdominal Pain (ED) Is patient prescribed a controlled substance at d/c from ED?: No Referrals: Isi Carolina MD [Primary Care Provider] - 1-2 days Time of Disposition: 15:45
[2022-11-15] MEDS ORDERED: HYDROmorphone 1 MG/ML 1 ML SYRINGE IM STA (15:44)
[2022-11-15] MEDS ORDERED: traMADol 50 MG STARTER PACK 3 TAB BTL PO STA (15:44)
[2022-11-15] MEDS ORDERED: PROCHLORPERAZINE 5 MG TAB PO STA (15:44)
[2022-11-15] MEDS ORDERED: diphenhydrAMINE 50 MG CAP PO STA (15:44)
== END 2022-11-15 16:10 | disposition home or self-care (01) ==
LOC: EC 15:19
DX: G89.29 Other chronic pain (principal); R10.9 Unspecified abdominal pain; J45.909 Unspecified asthma, uncomplicated; E11.9 Type 2 diabetes mellitus without complications; K21.9 Gastro-esophageal reflux disease without esophagitis; F17.290 Nicotine dependence, other tobacco product, uncomplicated; F12.90 Cannabis use, unspecified, uncomplicated; Z86.59 Personal history of other mental and behavioral disorders; Z79.4 Long term (current) use of insulin; Z79.84 Long term (current) use of oral hypoglycemic drugs; Z79.899 Other long term (current) drug therapy; Z91.030 Bee allergy status; Z91.040 Latex allergy status; Z88.6 Allergy status to analgesic agent; Z91.018 Allergy to other foods; Z88.2 Allergy status to sulfonamides; Z88.8 Allergy status to other drugs, medicaments and biological substances; Z88.0 Allergy status to penicillin; Z88.1 Allergy status to other antibiotic agents
CPT/HCPCS: 99284; 96372; S0183; J1170

== ENCOUNTER 2022-11-25 16:05 | Emergency (ER) | payer OTHER ==
[2022-11-25] MEDS ORDERED: diphenhydrAMINE 50 MG CAP PO STA (19:10)
[2022-11-25] MEDS ORDERED: PROCHLORPERAZINE 10 MG TAB PO STA (19:10)
[2022-11-25] MEDS ORDERED: HYDROmorphone 1 MG/ML 1 ML SYRINGE IM STA (19:10)
--- NOTE | 2022-11-25 19:12 | ED ---
Recheck HPI - General Chief Complaint: Abdominal Pain Stated Complaint: abd pain,headache Time Seen by Provider: 11/25/22 18:35 Source: patient, RN notes reviewed, old records reviewed Mode of arrival: ambulatory Limitations: no limitations - History of Present Illness Initial Comments: This is a 32-year-old female t to the emergency department dia. This patient presents today for evaluation of abdominal pain. Patient also having severe migraine headache with nausea vomiting unable to take down no medications. Patient has persistent headache abdominal pain here in the ER today. Patient has no fevers no trauma no other complaints. This is her chronic symptoms MD Complaint: other (Recurrent headache and abdominal pain) -: days(s) (3) Returns Today for: persistent/worsening pain related to initial visit Symptoms Since Prior Visit: worsening pain Associated Symptoms: nausea, abdominal pain Treatments Prior to Arrival: Given Pain Meds on - Related Data Home Medications Medication Instructions Recorded Confirmed Omeprazole 20 mg PO BID 11/16/21 11/09/22 Acetaminophen [Tylenol Extra 500 mg PO Q4H PRN 03/30/22 11/09/22 Strength] Insulin Aspart [NovoLOG Flexpen] See Protocol SQ TID-W/MEALS PRN 03/30/22 11/09/22 Insulin Glargine,Hum.rec.anlog 45 units SQ QAM 03/30/22 11/09/22 [Lantus Solostar Pen] Ondansetron Odt [Zofran ODT] 4 mg SL Q6H PRN 03/30/22 11/09/22 tiZANidine [Zanaflex] 4 mg PO BID PRN 03/30/22 11/09/22 Etonogestrel [Nexplanon] 68 mg INTRADERMA DIRECTED 06/22/22 11/09/22 Albuterol Nebulized [Ventolin 2.5 mg INHALATION RT-Q4H PRN 09/18/22 11/09/22 Nebulized] Insulin Aspart [NovoLOG Flexpen] 10 units SQ TID-W/MEALS 09/18/22 11/09/22 Lipase/Protease/Amylase [Zenpep Dr 2 cap PO TID-W/MEALS 09/18/22 11/09/22 5,000 Unit Capsule] Pioglitazone [Actos] 30 mg PO QAM 09/18/22 11/09/22 metFORMIN HCL [Glucophage] 1,000 mg PO BID 10/18/22 11/09/22 Atorvastatin [Lipitor] 80 mg PO HS 10/27/22 11/09/22 EPINEPHrine (Auto Inject) [Epipen] 0.3 mg IM DIRECTED PRN 10/27/22 11/09/22 Fenofibrate [Lofibra] 160 mg PO QAM 10/27/22 11/09/22 QUEtiapine FUMARATE [SEROquel] 600 mg PO HS 11/09/22 11/09/22 Previous Rx's Medication Instructions Recorded Ibuprofen [Motrin] 800 mg PO Q8HR PRN #30 tab 06/07/22 Allergies Allergy/AdvReac Type Severity Reaction Status Date / Time bee pollen Allergy Severe Anaphylaxis Verified 11/25/22 16:40 haloperidol lactate Allergy Severe QUIT Verified 11/25/22 16:40 [From Haldol] BREATHING latex Allergy Severe RASH-THROAT Verified 11/25/22 16:40 CLOSES [place] Allergy Anaphylaxis Verified 11/25/22 16:40 coconut Allergy Anaphylaxis Verified 11/25/22 16:40 pineapple Allergy Anaphylaxis Verified 11/25/22 16:40 spider venom Allergy Swelling Verified 11/25/22 16:40 Sulfa (Sulfonamide Allergy Anaphylaxis Verified 11/25/22 16:40 Antibiotics) venom-wasp Allergy Swelling Verified 11/25/22 16:40 venom-wasp protein Allergy Swelling Verified 11/25/22 16:40 promethazine HCl AdvReac Severe Nausea & Verified 11/25/22 16:40 [From Phenergan] Vomiting amoxicillin AdvReac Nausea & Verified 11/25/22 16:40 Vomiting ANTS AdvReac Mild Anaphylaxis Uncoded 11/25/22 16:40 Review of Systems ROS Statement: Those systems with pertinent positive or pertinent negative responses have been documented in the HPI. ROS Other: All systems not noted in ROS Statement are negative. Past Medical History Past Medical History: Asthma, Diabetes Mellitus, GERD/Reflux Additional Past Medical History / Comment(s): migraines, degenerative disk disease, endometriosis, lupus, pancreatitis, DM2- insulin, gastroparesis History of Any Multi-Drug Resistant Organisms: None Reported Past Surgical History: Cholecystectomy, Orthopedic Surgery Additional Past Surgical History / Comment(s): laparoscopc surgery for endometriosis, cyst removed from left foot, EGD, Past Anesthesia/Blood Transfusion Reactions: Previous Problems w/ Anesthesia Additional Past Anesthesia/Blood Transfusion Reaction / Comment(s): hard to wake up for 48-72 hours after laparoscopic surgery-was in hosp. for 3 days Past Psychological History: Anxiety, Depression, PTSD Smoking Status: Former smoker, Vaper Past Alcohol Use History: None Reported Past Drug Use History: Marijuana - Past Family History Mother Family Medical History: Cancer Additional Family Medical History / Comment(s): Migraines, pancreatic cancer, . Father Family Medical History: Coronary Artery Disease (CAD), Hypertension Additional Family Medical History / Comment(s): ddd, alcoholism & drug use General Exam Limitations: no limitations General appearance: alert, in no apparent distress, anxious Head exam: Present: atraumatic, normocephalic, normal inspection Eye exam: Present: normal appearance, PERRL, EOMI. Absent: scleral icterus, conjunctival injection, periorbital swelling ENT exam: Present: normal exam, mucous membranes moist Neck exam: Present: normal inspection. Absent: tenderness, meningismus, lymphadenopathy Respiratory exam: Present: normal lung sounds bilaterally. Absent: respiratory distress, wheezes, rales, rhonchi, stridor Cardiovascular Exam: Present: normal rhythm, tachycardia, normal heart sounds. Absent: systolic murmur, diastolic murmur, rubs, gallop, clicks GI/Abdominal exam: Present: soft, normal bowel sounds. Absent: distended, tenderness, guarding, rebound, rigid Extremities exam: Present: normal inspection, full ROM, normal capillary refill. Absent: tenderness, pedal edema, joint swelling, calf tenderness Back exam: Present: normal inspection Neurological exam: Present: alert, oriented X3, CN II-XII intact Psychiatric exam: Present: normal affect, normal mood Skin exam: Present: warm, dry, intact, normal color. Absent: rash Course Vital Signs 11/25/22 11/25/22 16:38 19:25 Temperature 99.0 F 98.1 F Pulse Rate 109 H 90 Respiratory 20 19 Rate Blood Pressure 126/84 106/70 O2 Sat by Pulse 99 Oximetry - Reevaluation(s) Reevaluation #1: 11/25/22 19:29 Medical record is reviewed Reevaluation #2: 11/25/22 19:29 Patient symptoms are improved Reevaluation #3: 11/25/22 19:29 Patient informed results questions answered Reevaluation #4: 11/25/22 19:29 Was pt. sent in by a medical professional or institution ([facility] L[facility]pez, NEWSPAPER VENDOR, urgent care, hospital, or [facility]...) When possible be specific @ -no Did you speak to anyone other than the patient for history (EMS, parent, family, police, friend...)? What history was obtained from this source @ -no Did you review nursing and triage notes (agree or disagree)? Why? @ -agree Are old charts reviewed (outside hosp., previous admission, EMS record, old EKG, old radiological studies, urgent care reports/EKG's, [facility] records)? Report findings @ -yes Differential Diagnosis (chest pain, altered mental status, abdominal pain women, abdominal pain men, vaginal bleeding, weakness, fever, dyspnea, syncope, headache, dizziness, GI bleed, back pain, seizure, CVA, palpatations, mental health, musculoskeletal)? @ -prior EKG interpreted by me (3pts min.). @ -no X-rays interpreted by me (1pt min.). @ -no CT interpreted by me (1pt min.). @ -no U/S interpreted by me (1pt. min.). @ -no What testing was considered but not performed or refused? (CT, X-rays, U/S, labs)? Why? @ -none What meds were considered but not given or refused? Why? @ -none Did you discuss the management of the patient with other professionals (professionals i.e. SADE López, NEWSPAPER VENDOR, lab, RT, psych nurse, social work instructor, credit card interviewer, teacher, electronic warfare officer, family caseworker)? Give summary @ -no Was smoking cessation discussed for >3mins.? @ -no Was critical care preformed (if so, how long)? @ -no Were there social determinants of health that impacted care today? How? (Homelessness, low income, unemployed, alcoholism, drug addiction, transportation, low edu. Level, literacy, decrease access to med. care, residential, rehab)? @ -none Was there de-escalation of care discussed even if they declined (Discuss DNR or withdrawal of care, Hospice)? DNR status @ -no What co-morbidities impacted this encounter? (DM, HTN, Smoking, COPD, CAD, Cancer, CVA, ARF, Chemo, Hep., AIDS, mental health diagnosis, sleep apnea, morbid obesity)? @ -none Was patient admitted / discharged? Hospital course, mention meds given and route, prescriptions, significant lab abnormalities, going to OR and other pertinent info. @ - 32 female to the emergency department today for evaluation of headache abdominal pain on chronic nature. Patient will be discharged home and she currently feels well Discharge Undiagnosed new problem with uncertain prognosis? @ -no Drug Therapy requiring intensive monitoring for toxicity (Heparin, Nitro, Insulin, Cardizem)? @ -no Were any procedures done? @ -no Diagnosis/symptom? @ -Abdominal pain chronic Acute, or Chronic, or Acute on Chronic? @ -Acute Uncomplicated (without systemic symptoms) or Complicated (systemic symptoms)? @ -Complicated Side effects of treatment? @ -no Exacerbation, Progression, or Severe Exacerbation? @ -exacerbation Poses a threat to life or bodily function? How? (Chest pain, USA, [place], pneumonia, PE, COPD, DKA, ARF, appy, cholecystitis, CVA, Diverticulitis, Homicidal, Suicidal, threat to staff... and all critical care pts) @ -yes Reevaluation #5: 11/25/22 19:29 Differential Headache: Migraine, tension, cluster, carbon monoxide, central venous thrombosis, pension karma temporal arteritis, acute closure glaucoma, intercranial hemorrhage, mastoiditis, sinusitis, head injury, this is not meant to be an all-inclusive list. Differential Abdominal Pain Men: Appendicitis, cholecystitis, diverticulosis, ischemic bowel, pancreatitis, hepatitis, UTI, gastroenteritis, AAA, incarcerated hernia, bowel obstruction, constipation, inflammatory bowel, hepatitis, peptic ulcer disease, splenic infarction, perforated viscus, testicular torsion, this is not meant to be an all-inclusive list Medical Decision Making - Medical Decision Making 32 female to the emergency department today for evaluation of headache abdominal pain on chronic nature. Patient will be discharged home and she currently feels well Disposition Clinical Impression: Abdominal pain, Nausea & vomiting, Migraine headache Disposition: ADMITTED IP TO THIS [facility] Condition: Fair Instructions (If sedation given, give patient instructions): Abdominal Pain (ED) Is patient prescribed a controlled substance at d/c from ED?: No Referrals: Isi Carolina MD [Primary Care Provider] - 1-2 days Time of Disposition: 19:10
[2022-11-25 19:26] VITALS: BP 106/70; PULSE 90; RESP 19; TEMP 98.1
== END 2022-11-25 19:36 | disposition other institution (70) ==
LOC: EC 16:05
DX: G43.909 Migraine, unspecified, not intractable, without status migrainosus (principal); G89.29 Other chronic pain; R10.9 Unspecified abdominal pain; E11.43 Type 2 diabetes mellitus with diabetic autonomic (poly)neuropathy; K31.84 Gastroparesis; J45.909 Unspecified asthma, uncomplicated; K21.9 Gastro-esophageal reflux disease without esophagitis; F32.A Depression, unspecified; F41.9 Anxiety disorder, unspecified; F12.90 Cannabis use, unspecified, uncomplicated; F17.290 Nicotine dependence, other tobacco product, uncomplicated; Z79.4 Long term (current) use of insulin; Z79.84 Long term (current) use of oral hypoglycemic drugs; Z79.899 Other long term (current) drug therapy; Z88.0 Allergy status to penicillin; Z88.2 Allergy status to sulfonamides; Z88.8 Allergy status to other drugs, medicaments and biological substances; Z91.030 Bee allergy status; Z91.038 Other insect allergy status; Z91.018 Allergy to other foods; Z91.040 Latex allergy status; Z91.09 Other allergy status, other than to drugs and biological substances; Z90.49 Acquired absence of other specified parts of digestive tract
CPT/HCPCS: 99285; 96372; S0183; J1170

== ENCOUNTER 2022-11-27 19:41 | Emergency (ER) | payer OTHER ==
[2022-11-27 20:23] VITALS: RESP 16
[2022-11-27] MEDS ORDERED: ONDANSETRON 4 MG/2 ML VIAL IVP STA (20:24)
--- NOTE | 2022-11-27 20:26 | ED ---
Abdominal Pain HPI - General Source: patient Mode of arrival: ambulatory Limitations: no limitations <Greg Danielle - Last Filed: 11/27/22 20:25> - General Source: RN notes reviewed, old records reviewed - History of Present Illness Complaint: abdominal pain -: hour(s) Location: periumbilical Migration to: epigastric Severity: moderate Severity scale (1-10): 6 Quality: aching Consistency: constant Improves With: nothing Worsens With: nothing Associated Symptoms: nausea Treatments Prior to Arrival: other <Paul Turner - Last Filed: 11/29/22 17:45> - General Chief Complaint: Abdominal Pain Stated Complaint: abd pain Time Seen by Provider: 11/27/22 20:25 - History of Present Illness Initial Comments: 32-year-old female presents to ED with a chief complaint of abdominal pain. Patient states pain started yesterday after eating. Patient states pain affects the upper abdomen. Associated nausea. (Greg Danielle) This is a 32-year-old female to the ER today. Patient presents today for evaluation of severe abdominal pain. Patient has a complex history with abdominal pain complex medical history with chronic pain control issues as well. A she has chronic pancreatitis. Multiple abdominal surgeries, some significant nausea currently no active vomiting. Patient received started on new pain medication is outpatient but has not currently helped her pain yet (Paul Turner) - Related Data Home Medications Medication Instructions Recorded Confirmed Omeprazole 20 mg PO BID 11/16/21 11/09/22 Acetaminophen [Tylenol Extra 500 mg PO Q4H PRN 03/30/22 11/09/22 Strength] Insulin Aspart [NovoLOG Flexpen] See Protocol SQ TID-W/MEALS PRN 03/30/22 11/09/22 Insulin Glargine,Hum.rec.anlog 45 units SQ QAM 03/30/22 11/09/22 [Lantus Solostar Pen] Ondansetron Odt [Zofran ODT] 4 mg SL Q6H PRN 03/30/22 11/09/22 tiZANidine [Zanaflex] 4 mg PO BID PRN 03/30/22 11/09/22 Etonogestrel [Nexplanon] 68 mg INTRADERMA DIRECTED 06/22/22 11/09/22 Albuterol Nebulized [Ventolin 2.5 mg INHALATION RT-Q4H PRN 09/18/22 11/09/22 Nebulized] Insulin Aspart [NovoLOG Flexpen] 10 units SQ TID-W/MEALS 09/18/22 11/09/22 Lipase/Protease/Amylase [Zenpep Dr 2 cap PO TID-W/MEALS 09/18/22 11/09/22 5,000 Unit Capsule] Pioglitazone [Actos] 30 mg PO QAM 09/18/22 11/09/22 metFORMIN HCL [Glucophage] 1,000 mg PO BID 10/18/22 11/09/22 Atorvastatin [Lipitor] 80 mg PO HS 10/27/22 11/09/22 EPINEPHrine (Auto Inject) [Epipen] 0.3 mg IM DIRECTED PRN 10/27/22 11/09/22 Fenofibrate [Lofibra] 160 mg PO QAM 10/27/22 11/09/22 QUEtiapine FUMARATE [SEROquel] 600 mg PO HS 11/09/22 11/09/22 Previous Rx's Medication Instructions Recorded Ibuprofen [Motrin] 800 mg PO Q8HR PRN #30 tab 06/07/22 Allergies Allergy/AdvReac Type Severity Reaction Status Date / Time bee pollen Allergy Severe Anaphylaxis Verified 11/25/22 16:40 haloperidol lactate Allergy Severe QUIT Verified 11/25/22 16:40 [From Haldol] BREATHING latex Allergy Severe RASH-THROAT Verified 11/25/22 16:40 CLOSES [place] Allergy Anaphylaxis Verified 11/25/22 16:40 coconut Allergy Anaphylaxis Verified 11/25/22 16:40 pineapple Allergy Anaphylaxis Verified 11/25/22 16:40 spider venom Allergy Swelling Verified 11/25/22 16:40 Sulfa (Sulfonamide Allergy Anaphylaxis Verified 11/25/22 16:40 Antibiotics) venom-wasp Allergy Swelling Verified 11/25/22 16:40 venom-wasp protein Allergy Swelling Verified 11/25/22 16:40 promethazine HCl AdvReac Severe Nausea & Verified 11/25/22 16:40 [From Phenergan] Vomiting amoxicillin AdvReac Nausea & Verified 11/25/22 16:40 Vomiting ANTS AdvReac Mild Anaphylaxis Uncoded 11/25/22 16:40 Review of Systems ROS Other: All systems not noted in ROS Statement are negative. <Greg Danielle - Last Filed: 11/27/22 20:25> ROS Other: All systems not noted in ROS Statement are negative. <Paul Turner - Last Filed: 11/29/22 17:45> ROS Statement: Those systems with pertinent positive or pertinent negative responses have been documented in the HPI. Past Medical History Past Medical History: Asthma, Diabetes Mellitus, GERD/Reflux Additional Past Medical History / Comment(s): migraines, degenerative disk disea se, endometriosis, lupus, pancreatitis, DM2- insulin, gastroparesis History of Any Multi-Drug Resistant Organisms: None Reported Past Surgical History: Cholecystectomy, Orthopedic Surgery Additional Past Surgical History / Comment(s): laparoscopc surgery for endometriosis, cyst removed from left foot, EGD, Past Anesthesia/Blood Transfusion Reactions: Previous Problems w/ Anesthesia Additional Past Anesthesia/Blood Transfusion Reaction / Comment(s): hard to wake up for 48-72 hours after laparoscopic surgery-was in hosp. for 3 days Past Psychological History: Anxiety, Depression, PTSD Smoking Status: Former smoker, Vaper Past Alcohol Use History: None Reported Past Drug Use History: Marijuana - Past Family History Mother Family Medical History: Cancer Additional Family Medical History / Comment(s): Migraines, pancreatic cancer, . Father Family Medical History: Coronary Artery Disease (CAD), Hypertension Additional Family Medical History / Comment(s): ddd, alcoholism & drug use <DellalisaGreg - Last Filed: 11/27/22 20:25> General Exam Limitations: no limitations <LolisGreg - Last Filed: 11/27/22 20:25> General appearance: alert, in no apparent distress, anxious Head exam: Present: atraumatic, normocephalic, normal inspection Eye exam: Present: normal appearance, PERRL, EOMI. Absent: scleral icterus, conjunctival injection, periorbital swelling ENT exam: Present: normal exam, mucous membranes moist Neck exam: Present: normal inspection. Absent: tenderness, meningismus, lymphadenopathy Respiratory exam: Present: normal lung sounds bilaterally. Absent: respiratory distress, wheezes, rales, rhonchi, stridor Cardiovascular Exam: Present: regular rate, normal rhythm, normal heart sounds. Absent: systolic murmur, diastolic murmur, rubs, gallop, clicks GI/Abdominal exam: Present: soft, normal bowel sounds. Absent: distended, tenderness, guarding, rebound, rigid Extremities exam: Present: normal inspection, full ROM, normal capillary refill. Absent: tenderness, pedal edema, joint swelling, calf tenderness Back exam: Present: normal inspection Neurological exam: Present: alert, oriented X3, CN II-XII intact Psychiatric exam: Present: normal affect, normal mood Skin exam: Present: warm, dry, intact, normal color. Absent: rash <Paul Turner - Last Filed: 11/29/22 17:45> Course <Paul Turner - Last Filed: 11/29/22 17:45> Vital Signs 11/27/22 11/27/22 20:21 23:24 Temperature 98.1 F 98.6 F Pulse Rate 100 86 Respiratory 16 16 Rate Blood Pressure 150/92 140/79 O2 Sat by Pulse 98 99 Oximetry - Reevaluation(s) Reevaluation #1: 11/27/22 23:04 Medical record is reviewed (Paul Turner) Reevaluation #2: 11/27/22 23:04 Patient has pain improvement (Paul Turner) Reevaluation #3: 11/27/22 23:05 Patient informed results questions answered (Paul Turner) Reevaluation #4: 11/27/22 23:05 Was pt. sent in by a medical professional or institution (, PA, WORKPLACE TRAINER AND ASSESSOR, urgent care, hospital, or [place] [facility] facility...) When possible be specific @ -no Did you speak to anyone other than the patient for history (EMS, parent, family, police, friend...)? What history was obtained from this source @ -no Did you review nursing and triage notes (agree or disagree)? Why? @ -agree Are old charts reviewed (outside hosp., previous admission, EMS record, old EKG, old radiological studies, urgent care reports/EKG's, [place] [facility] facility records)? Report findings @ -yes Differential Diagnosis (chest pain, altered mental status, abdominal pain women, abdominal pain men, vaginal bleeding, weakness, fever, dyspnea, syncope, headache, dizziness, GI bleed, back pain, seizure, CVA, palpatations, mental health, musculoskeletal)? @ -prior EKG interpreted by me (3pts min.). @ -no X-rays interpreted by me (1pt min.). @ -no CT interpreted by me (1pt min.). @ -no U/S interpreted by me (1pt. min.). @ -no What testing was considered but not performed or refused? (CT, X-rays, U/S, labs)? Why? @ -none What meds were considered but not given or refused? Why? @ -none Did you discuss the management of the patient with other professionals (professionals i.e. DrSuzie, PA, WORKPLACE TRAINER AND ASSESSOR, lab, RT, psych nurse, social service director, smoke chaser, teacher, chief revenue officer, behavioral health case manager)? Give summary @ -no Was smoking cessation discussed for >3mins.? @ -no Was critical care preformed (if so, how long)? @ -no Were there social determinants of health that impacted care today? How? (Homelessness, low income, unemployed, alcoholism, drug addiction, transportation, low edu. Level, literacy, decrease access to med. care, skilled nursing, rehab)? @ -none Was there de-escalation of care discussed even if they declined (Discuss DNR or withdrawal of care, Hospice)? DNR status @ -no What co-morbidities impacted this encounter? (DM, HTN, Smoking, COPD, CAD, Cancer, CVA, ARF, Chemo, Hep., AIDS, mental health diagnosis, sleep apnea, morbid obesity)? @ -none Was patient admitted / discharged? Hospital course, mention meds given and route, prescriptions, significant lab abnormalities, going to OR and other pertinent info. @ - 32 female to the ER today. Patient presents today for evaluation regards to abdominal pain. Chronic abdominal pain recently started on new medication for chronic pancreatitis pain. Patient will be given pain control here in the ER to bridge pain and can be discharged home. Discharge Undiagnosed new problem with uncertain prognosis? @ -no Drug Therapy requiring intensive monitoring for toxicity (Heparin, Nitro, Insulin, Cardizem)? @ -no Were any procedures done? @ -no Diagnosis/symptom? @ -Abdominal pain and chronic pancreatitis Acute, or Chronic, or Acute on Chronic? @ -Acute Uncomplicated (without systemic symptoms) or Complicated (systemic symptoms)? @ -Complicated Side effects of treatment? @ -no Exacerbation, Progression, or Severe Exacerbation? @ -exacerbation Poses a threat to life or bodily function? How? (Chest pain, [place], [place], pneumonia, PE, COPD, DKA, ARF, appy, cholecystitis, CVA, Diverticulitis, Homicidal, Suicidal, threat to staff... and all critical care pts) @ -no (Paul Turner) Reevaluation #5: 11/27/22 23:05 Differential Abdominal Pain Women: Appendicitis, Cholecystitis, diverticulosis, ischemic bowel, pancreatitis, hepatitis, UTI, gastroenteritis, AAA, incarcerated hernia, bowel obstruction, constipation, inflammatory bowel, hepatitis, peptic ulcer disease, splenic infarction, perforated viscus, vulvitis, ovarian torsion, PID, kidney stone, placenta abruption, this is not meant to be an all-inclusive list (Paul Turner) Medical Decision Making <Paul Turner - Last Filed: 11/29/22 17:45> - Medical Decision Making 32 female to the ER today. Patient presents today for evaluation regards to abdominal pain. Chronic abdominal pain recently started on new medication for chronic pancreatitis pain. Patient will be given pain control here in the ER to bridge pain and can be discharged home. (Paul Turner) Disposition <Greg Danielle - Last Filed: 11/27/22 20:25> Is patient prescribed a controlled substance at d/c from ED?: No Time of Disposition: 23:00 <Paul Turner - Last Filed: 11/29/22 17:45> Clinical Impression: Chronic pancreatitis, Abdominal pain Disposition: HOME SELF-CARE Condition: Fair Instructions (If sedation given, give patient instructions): Abdominal Pain (ED) Referrals: Isi Carolina MD [Primary Care Provider] - 1-2 days
[2022-11-27] MEDS ORDERED: PROCHLORPERAZINE 10 MG TAB PO STA (23:03)
[2022-11-27] MEDS ORDERED: diphenhydrAMINE 50 MG CAP PO STA (23:03)
[2022-11-27] MEDS ORDERED: HYDROmorphone 1 MG/ML 1 ML SYRINGE IM STA (23:03)
[2022-11-27 23:25] VITALS: BP 140/79; PULSE 86; TEMP 98.6
== END 2022-11-28 00:01 | disposition home or self-care (01) ==
LOC: EC 19:41
DX: K86.1 Other chronic pancreatitis (principal); E11.9 Type 2 diabetes mellitus without complications; J45.909 Unspecified asthma, uncomplicated; K21.9 Gastro-esophageal reflux disease without esophagitis; F32.A Depression, unspecified; F41.9 Anxiety disorder, unspecified; Z79.4 Long term (current) use of insulin; Z79.84 Long term (current) use of oral hypoglycemic drugs; Z79.899 Other long term (current) drug therapy; Z88.0 Allergy status to penicillin; Z88.2 Allergy status to sulfonamides; Z88.8 Allergy status to other drugs, medicaments and biological substances; Z91.030 Bee allergy status; Z91.040 Latex allergy status; Z91.018 Allergy to other foods; Z91.038 Other insect allergy status; Z87.891 Personal history of nicotine dependence; Z90.49 Acquired absence of other specified parts of digestive tract
CPT/HCPCS: 99284; 96372; S0183; J1170

== ENCOUNTER 2022-12-05 17:07 | Emergency (ER) | payer OTHER ==
[2022-12-05 17:19] VITALS: TEMP 97.3
[2022-12-05] MEDS ORDERED: SODIUM CHLORIDE 0.9% 1,000 ML IV STA (17:38)
[2022-12-05] MEDS ORDERED: diphenhydrAMINE 50 MG/ML 1 ML VIAL IVP STA (17:38)
[2022-12-05] MEDS ORDERED: KETOROLAC 15 MG/ML 1 ML VIAL IVP STA (17:38)
[2022-12-05] MEDS ORDERED: ONDANSETRON 4 MG/2 ML VIAL IVP STA (18:12)
[2022-12-05] MEDS ORDERED: diphenhydrAMINE 50 MG/ML 1 ML VIAL IM STA (19:23)
[2022-12-05] MEDS ORDERED: ONDANSETRON ODT 4 MG TAB PO STA (19:23)
[2022-12-05] MEDS ORDERED: KETOROLAC 15 MG/ML 1 ML VIAL IM STA (19:23)
[2022-12-05 20:18] LABS: Basophils % (A) 0 %; Eosinophils # (A) 0.1 k/uL (0-0.7); Eosinophils % (A) 1 %; HCT 35.5 % (34.0-46.0); HGB 11.9 gm/dL (11.4-16.0); Lymphocytes % (A) 40 %; MCH 29.8 pg (25.0-35.0); MCHC 33.6 g/dL (31.0-37.0); MCV 88.7 fL (80.0-100.0); Mean Platelet Volume 9.1; Monocytes # (A) 0.2 k/uL (0-1.0); Monocytes % (A) 5 %; Neutrophils # (A) 2.7 k/uL (1.3-7.7); Neutrophils % (A) 52 %; Platelet Count 243 k/uL (150-450); RDW 14.5 % (11.5-15.5); WBC 5.1 k/uL (3.8-10.6)
[2022-12-05] MEDS ORDERED: METOCLOPRAMIDE 5 MG/ML 2 ML VIAL IM STA (20:54)
[2022-12-05] MEDS ORDERED: ACETAMINOPHEN TAB 500 MG TAB PO STA (21:29)
[2022-12-05 21:36] VITALS: RESP 16
[2022-12-05 21:44] LABS: ALT 27 U/L (4-34); AST 35 U/L (14-36); African American GFR (CKD) >90 (>60 ml/min/1.73 sqM); Albumin 3.8 g/dL (3.5-5.0); Alkaline Phosphatase 67 U/L (38-126); Anion Gap 10 mmol/L; Blood Urea Nitrogen 4 mg/dL (7-17); Calcium 10.6 mg/dL (8.4-10.2); Carbon Dioxide 21 mmol/L (22-30); Chloride 107 mmol/L (98-107); Glucose 123 mg/dL (74-99); Lipase 297 U/L (23-300); Non-African American GFR(CKD) >90 (>60 ml/min/1.73 sqM); Potassium 3.6 mmol/L (3.5-5.1); Sodium 138 mmol/L (137-145); Total Bilirubin 0.4 mg/dL (0.2-1.3); Total Protein 7.2 g/dL (6.3-8.2)
[2022-12-05 21:50] VITALS: BP 141/87; PULSE 89
--- NOTE | 2022-12-05 21:52 | ED ---
Abdominal Pain HPI - General Chief Complaint: Abdominal Pain Stated Complaint: STOMACH PAIN Time Seen by Provider: 12/05/22 17:34 Source: patient Mode of arrival: ambulatory Limitations: no limitations - History of Present Illness Initial Comments: Patient is a 32-year-old female who presents to the emergency department with abdominal pain. Patient has history of chronic abdominal pain states this feels similar. She does have history of recurrent pancreatitis states she was recently discharged from a hospital in [place]. She reports pain in her upper middle abdomen/pancreatitis. She feels nauseous no vomiting. No fever or chills. No urinary symptoms. No changes in bowel habits. No chest pain or shortness of breath. - Related Data Home Medications Medication Instructions Recorded Confirmed Omeprazole 20 mg PO BID 11/16/21 11/09/22 Acetaminophen [Tylenol Extra 500 mg PO Q4H PRN 03/30/22 11/09/22 Strength] Insulin Aspart [NovoLOG Flexpen] See Protocol SQ TID-W/MEALS PRN 03/30/22 11/09/22 Insulin Glargine,Hum.rec.anlog 45 units SQ QAM 03/30/22 11/09/22 [Lantus Solostar Pen] Ondansetron Odt [Zofran ODT] 4 mg SL Q6H PRN 03/30/22 11/09/22 tiZANidine [Zanaflex] 4 mg PO BID PRN 03/30/22 11/09/22 Etonogestrel [Nexplanon] 68 mg INTRADERMA DIRECTED 06/22/22 11/09/22 Albuterol Nebulized [Ventolin 2.5 mg INHALATION RT-Q4H PRN 09/18/22 11/09/22 Nebulized] Insulin Aspart [NovoLOG Flexpen] 10 units SQ TID-W/MEALS 09/18/22 11/09/22 Lipase/Protease/Amylase [Zenpep Dr 2 cap PO TID-W/MEALS 09/18/22 11/09/22 5,000 Unit Capsule] Pioglitazone [Actos] 30 mg PO QAM 09/18/22 11/09/22 metFORMIN HCL [Glucophage] 1,000 mg PO BID 10/18/22 11/09/22 Atorvastatin [Lipitor] 80 mg PO HS 10/27/22 11/09/22 EPINEPHrine (Auto Inject) [Epipen] 0.3 mg IM DIRECTED PRN 10/27/22 11/09/22 Fenofibrate [Lofibra] 160 mg PO QAM 10/27/22 11/09/22 QUEtiapine FUMARATE [SEROquel] 600 mg PO HS 11/09/22 11/09/22 Previous Rx's Medication Instructions Recorded Ibuprofen [Motrin] 800 mg PO Q8HR PRN #30 tab 06/07/22 Allergies Allergy/AdvReac Type Severity Reaction Status Date / Time bee pollen Allergy Severe Anaphylaxis Verified 12/05/22 17:20 haloperidol lactate Allergy Severe QUIT Verified 12/05/22 17:20 [From Haldol] BREATHING latex Allergy Severe RASH-THROAT Verified 12/05/22 17:20 CLOSES [place] Allergy Anaphylaxis Verified 12/05/22 17:20 coconut Allergy Anaphylaxis Verified 12/05/22 17:20 pineapple Allergy Anaphylaxis Verified 12/05/22 17:20 spider venom Allergy Swelling Verified 12/05/22 17:20 Sulfa (Sulfonamide Allergy Anaphylaxis Verified 12/05/22 17:20 Antibiotics) venom-wasp Allergy Swelling Verified 12/05/22 17:20 venom-wasp protein Allergy Swelling Verified 12/05/22 17:20 promethazine HCl AdvReac Severe Nausea & Verified 12/05/22 17:20 [From Phenergan] Vomiting amoxicillin AdvReac Nausea & Verified 12/05/22 17:20 Vomiting ANTS AdvReac Mild Anaphylaxis Uncoded 12/05/22 17:20 Review of Systems ROS Statement: Those systems with pertinent positive or pertinent negative responses have been documented in the HPI. ROS Other: All systems not noted in ROS Statement are negative. Past Medical History Past Medical History: Asthma, Diabetes Mellitus, GERD/Reflux Additional Past Medical History / Comment(s): migraines, degenerative disk disease, endometriosis, lupus, pancreatitis, DM2- insulin, gastroparesis History of Any Multi-Drug Resistant Organisms: None Reported Past Surgical History: Cholecystectomy, Orthopedic Surgery Additional Past Surgical History / Comment(s): laparoscopc surgery for endometriosis, cyst removed from left foot, EGD, Past Anesthesia/Blood Transfusion Reactions: Previous Problems w/ Anesthesia Additional Past Anesthesia/Blood Transfusion Reaction / Comment(s): hard to wake up for 48-72 hours after laparoscopic surgery-was in hosp. for 3 days Past Psychological History: Anxiety, Depression, PTSD Smoking Status: Former smoker, Vaper Past Alcohol Use History: None Reported Past Drug Use History: Marijuana - Past Family History Mother Family Medical History: Cancer Additional Family Medical History / Comment(s): Migraines, pancreatic cancer, . Father Family Medical History: Coronary Artery Disease (CAD), Hypertension Additional Family Medical History / Comment(s): ddd, alcoholism & drug use General Exam Limitations: no limitations General appearance: alert Eye exam: Present: normal appearance, PERRL, EOMI. Absent: scleral icterus, conjunctival injection, periorbital swelling Respiratory exam: Present: normal lung sounds bilaterally. Absent: respiratory distress, wheezes, rales, rhonchi, stridor Cardiovascular Exam: Present: normal rhythm, tachycardia, normal heart sounds. Absent: regular rate, systolic murmur, diastolic murmur, rubs, gallop, clicks GI/Abdominal exam: Present: soft, tenderness (Mild epigastric), normal bowel sounds. Absent: distended, guarding, rebound, rigid Neurological exam: Present: alert Psychiatric exam: Present: normal affect, normal mood Skin exam: Present: warm, dry, intact, normal color. Absent: rash Course Vital Signs 12/05/22 12/05/22 12/05/22 17:16 21:35 21:49 Temperature 97.3 F L Pulse Rate 157 H 115 H 89 Respiratory 18 16 16 Rate Blood Pressure 147/93 136/97 141/87 O2 Sat by Pulse 97 96 Oximetry Medical Decision Making - Medical Decision Making Was pt. sent in by a medical professional or institution (, PA, FIELD AIDE, urgent care, hospital, or jail...) When possible be specific @ -No Did you speak to anyone other than the patient for history (EMS, parent, family, police, friend...)? What history was obtained from this source @ -No Did you review nursing and triage notes (agree or disagree)? Why? @ -I reviewed and agree with nursing and triage notes Were old charts reviewed (outside hosp., previous admission, EMS record, old EKG , old radiological studies, urgent care reports/EKG's, jail records)? Report findings @ -No old charts were reviewed Differential Diagnosis (chest pain, altered mental status, abdominal pain women, abdominal pain men, vaginal bleeding, weakness, fever, dyspnea, syncope, headache, dizziness, GI bleed, back pain, seizure, CVA, palpatations, mental health)? @ -Differential Abdominal Pain Women: Appendicitis, Cholecystitis, diverticulosis, ischemic bowel, pancreatitis, hepatitis, UTI, gastroenteritis, AAA, incarcerated hernia, bowel obstruction, constipation, inflammatory bowel, hepatitis, peptic ulcer disease, splenic infarction, perforated viscus, vulvitis, ovarian torsion, PID, kidney stone, placenta abruption, this is not meant to be an all-inclusive list EKG interpreted by me (3pts min.). @ -As above X-rays interpreted by me (1pt min.). @ -None done CT interpreted by me (1pt min.). @ -None done U/S interpreted by me (1pt. min.). @ -None done What testing was considered but not performed or refused? (CT, X-rays, U/S, labs)? Why? @ -None What meds were considered but not given or refused? Why? @ -None Did you discuss the management of the patient with other professionals (professionals i.e. , PA, FIELD AIDE, lab, RT, psych nurse, criminal justice social worker, transit planning director, teacher, hazard mitigation officer, case assembler)? Give summary @ -No Was smoking cessation discussed for >3mins.? @ -No Was critical care preformed (if so, how long)? @ -No Were there social determinants of health that impacted care today? How? (Homelessness, low income, unemployed, alcoholism, drug addiction, tra nsportation, low edu. Level, literacy, decrease access to med. care, fci, rehab)? @ -No Was there de-escalation of care discussed even if they declined (Discuss DNR or withdrawal of care, Hospice)? DNR status @ -No What co-morbidities impacted this encounter? (DM, HTN, Smoking, COPD, CAD, Cancer, CVA, ARF, Chemo, Hep., AIDS, mental health diagnosis, sleep apnea, morbid obesity)? @ -chronic abdominal pain Was patient admitted / discharged? Hospital course, mention meds given and ro gabby, prescriptions, significant lab abnormalities, going to OR and other pertinent info. @ -Patient presenting with worsening of her chronic abdominal pain. Patient is nontoxic appearing.She is tachycardic at 120 I suspect related to dehydration. Laboratory studies took several hours due to inability to obtain blood and hemolyzed CMP. There is no leukocytosis. Lipase is within normal limits. Lactic is elevated at 2.6, suspect related to dehydration. Patient given pain and nausea medication. She did not have any vomiting during her visit. She is tolerating oral fluids she did drink some water with resolution of tachycardia. Patient in stable medical condition for discharge. She will follow-up with her GI specialist.Chronic abdominal pain Undiagnosed new problem with uncertain prognosis? @ -No Drug Therapy requiring intensive monitoring for toxicity (Heparin, Nitro, Insulin, Cardizem)? @ -No Were any procedures done? @ -No Diagnosis/symptom? @ -Epigastric pain, dehydration Acute, or Chronic, or Acute on Chronic? @ Acute on chronic Uncomplicated (without systemic symptoms) or Complicated (systemic symptoms)? @ -Uncomplicated Side effects of treatment? @ -No Exacerbation, Progression, or Severe Exacerbation? @ -No Poses a threat to life or bodily function? How? (Chest pain, [place], [place], pneumonia, PE, COPD, DKA, ARF, appy, cholecystitis, CVA, Diverticulitis, Homicidal, Suicidal, threat to staff... and all critical care pts) @ -No Dr. Peña is my attending - Lab Data Result diagrams: 12/05/22 19:53 12/05/22 21:11 Lab Results 12/05/22 12/05/22 12/05/22 Range/Units 19:53 19:53 20:38 WBC 5.1 (3.8-10.6) k/uL RBC 4.00 (3.80-5.40) m/uL Hgb 11.9 (11.4-16.0) gm/dL Hct 35.5 (34.0-46.0) % MCV 88.7 (80.0-100.0) fL MCH 29.8 (25.0-35.0) pg MCHC 33.6 (31.0-37.0) g/dL RDW 14.5 (11.5-15.5) % Plt Count 243 (150-450) k/uL MPV 9.1 Neutrophils % 52 % Lymphocytes % 40 % Monocytes % 5 % Eosinophils % 1 % Basophils % 0 % Neutrophils # 2.7 (1.3-7.7) k/uL Lymphocytes # 2.0 (1.0-4.8) k/uL Monocytes # 0.2 (0-1.0) k/uL Eosinophils # 0.1 (0-0.7) k/uL Basophils # 0.0 (0-0.2) k/uL Sodium (137-145) mmol/L Potassium (3.5-5.1) mmol/L Chloride (98-107) mmol/L Carbon Dioxide (22-30) mmol/L Anion Gap mmol/L BUN (7-17) mg/dL Creatinine (0.52-1.04) mg/dL Est GFR (CKD-EPI)AfAm (>60 ml/min/1.73 sqM) Est GFR (CKD-EPI)NonAf (>60 ml/min/1.73 sqM) Glucose (74-99) mg/dL Lactic Ac Sepsis Rflx Y Plasma Lactic Acid Aurelio 2.6 H* (0.7-2.0) mmol/L Calcium (8.4-10.2) mg/dL Total Bilirubin (0.2-1.3) mg/dL AST (14-36) U/L ALT (4-34) U/L Alkaline Phosphatase (38-126) U/L Total Protein (6.3-8.2) g/dL Albumin (3.5-5.0) g/dL Lipase (23-300) U/L 12/05/22 Range/Units 21:11 WBC (3.8-10.6) k/uL RBC (3.80-5.40) m/uL Hgb (11.4-16.0) gm/dL Hct (34.0-46.0) % MCV (80.0-100.0) fL MCH (25.0-35.0) pg MCHC (31.0-37.0) g/dL RDW (11.5-15.5) % Plt Count (150-450) k/uL MPV Neutrophils % % Lymphocytes % % Monocytes % % Eosinophils % % Basophils % % Neutrophils # (1.3-7.7) k/uL Lymphocytes # (1.0-4.8) k/uL Monocytes # (0-1.0) k/uL Eosinophils # (0-0.7) k/uL Basophils # (0-0.2) k/uL Sodium 138 (137-145) mmol/L Potassium 3.6 (3.5-5.1) mmol/L Chloride 107 (98-107) mmol/L Carbon Dioxide 21 L (22-30) mmol/L Anion Gap 10 mmol/L BUN 4 L (7-17) mg/dL Creatinine 0.55 (0.52-1.04) mg/dL Est GFR (CKD-EPI)AfAm >90 (>60 ml/min/1.73 sqM) Est GFR (CKD-EPI)NonAf >90 (>60 ml/min/1.73 sqM) Glucose 123 H (74-99) mg/dL Lactic Ac Sepsis Rflx Plasma Lactic Acid Aurelio (0.7-2.0) mmol/L Calcium 10.6 H (8.4-10.2) mg/dL Total Bilirubin 0.4 (0.2-1.3) mg/dL AST 35 (14-36) U/L ALT 27 (4-34) U/L Alkaline Phosphatase 67 (38-126) U/L Total Protein 7.2 (6.3-8.2) g/dL Albumin 3.8 (3.5-5.0) g/dL Lipase 297 (23-300) U/L Disposition Clinical Impression: Epigastric abdominal pain, Dehydration Disposition: HOME SELF-CARE Condition: Good Instructions (If sedation given, give patient instructions): Abdominal Pain (ED) Additional Instructions: Increase fluid intake. Continue home medication for pain. Follow up with GI specialist in 1-2 days. Return to the emergency department if you experience new, concerning, or worsening symptoms. Is patient prescribed a controlled substance at d/c from ED?: No Referrals: Isi Carolina MD [Primary Care Provider] - 1-2 days
== END 2022-12-05 22:11 | disposition home or self-care (01) ==
LOC: EC 17:07
DX: R10.13 Epigastric pain (principal); E86.0 Dehydration; J45.909 Unspecified asthma, uncomplicated; E11.9 Type 2 diabetes mellitus without complications; K21.9 Gastro-esophageal reflux disease without esophagitis; F32.A Depression, unspecified; F17.290 Nicotine dependence, other tobacco product, uncomplicated; F12.90 Cannabis use, unspecified, uncomplicated; Z91.040 Latex allergy status; Z91.030 Bee allergy status; Z88.0 Allergy status to penicillin; Z88.2 Allergy status to sulfonamides; Z88.8 Allergy status to other drugs, medicaments and biological substances; Z90.49 Acquired absence of other specified parts of digestive tract; Z79.4 Long term (current) use of insulin; Z79.84 Long term (current) use of oral hypoglycemic drugs; Z79.899 Other long term (current) drug therapy
CPT/HCPCS: 36415; 80053; 83605; 83690; 85025; 99284; 96372 ×2; J1200; J1885

== ENCOUNTER 2022-12-10 10:02 | Emergency (ER) | payer BC, OTHER ==
[2022-12-10 10:14] VITALS: TEMP 98.9
[2022-12-10] MEDS ORDERED: SODIUM CHLORIDE 0.9% 1,000 ML IV STA ×2 (10:37→13:11)
[2022-12-10] MEDS ORDERED: KETOROLAC 15 MG/ML 1 ML VIAL IVP STA (10:37)
[2022-12-10] MEDS ORDERED: ONDANSETRON 4 MG/2 ML VIAL IVP STA (10:58)
[2022-12-10 12:27] LABS: Appearance,Urine Clear (Clear); Bacteria,Urine Many /hpf; Bilirubin,Urine Negative (Negative); Blood,Urine Small (Negative); Color,Urine Colorless; Glucose,Urine (UA) Negative (Negative); Ketones,Urine Negative (Negative); Leukocyte Esterase,Urine Negative (Negative); Nitrite,Urine Negative (Negative); PH, Urine 6.5 (5.0-8.0); Protein,Urine Negative (Negative); RBC,Urine 1 /hpf (0-5); Specific Gravity,Urine 1.002 (1.001-1.035); Squamous Epithelial Cell,Urine 2 /hpf (0-4); Urobilinogen,Urine <2.0 mg/dL (<2.0); WBC,Urine 2 /hpf (0-5)
[2022-12-10 12:29] LABS: Basophils % (A) 0 %; Eosinophils # (A) 0.1 k/uL (0-0.7); Eosinophils % (A) 2 %; HCT 41.5 % (34.0-46.0); HGB 14.1 gm/dL (11.4-16.0); Lymphocytes # (A) 1.4 k/uL (1.0-4.8); Lymphocytes % (A) 32 %; MCH 30.3 pg (25.0-35.0); MCHC 33.9 g/dL (31.0-37.0); MCV 89.1 fL (80.0-100.0); Mean Platelet Volume 8.5; Monocytes # (A) 0.3 k/uL (0-1.0); Monocytes % (A) 6 %; Neutrophils # (A) 2.5 k/uL (1.3-7.7); Neutrophils % (A) 57 %; Platelet Count 219 k/uL (150-450); RBC 4.65 m/uL (3.80-5.40); RDW 14.4 % (11.5-15.5); WBC 4.3 k/uL (3.8-10.6)
[2022-12-10 12:37] LABS: ALT 32 U/L (4-34); AST 53 U/L (14-36); African American GFR (CKD) >90 (>60 ml/min/1.73 sqM); Albumin 4.5 g/dL (3.5-5.0); Alkaline Phosphatase 86 U/L (38-126); Anion Gap 17 mmol/L; Blood Urea Nitrogen 6 mg/dL (7-17); Calcium 11.3 mg/dL (8.4-10.2); Carbon Dioxide 18 mmol/L (22-30); Chloride 104 mmol/L (98-107); Glucose 162 mg/dL (74-99); Lipase 153 U/L (23-300); Non-African American GFR(CKD) >90 (>60 ml/min/1.73 sqM); Potassium 4.5 mmol/L (3.5-5.1); Sodium 139 mmol/L (137-145); Total Bilirubin 0.6 mg/dL (0.2-1.3); Total Protein 8.5 g/dL (6.3-8.2)
[2022-12-10] MEDS ORDERED: diphenhydrAMINE 50 MG/ML 1 ML VIAL IVP STA (12:43)
[2022-12-10] MEDS ORDERED: ACETAMINOPHEN TAB 500 MG TAB PO STA (13:28)
[2022-12-10 14:28] VITALS: RESP 18
[2022-12-10] MEDS ORDERED: DICYCLOMINE 10 MG/ML 2 ML AMP IM STA (14:44)
--- NOTE | 2022-12-10 14:51 | ED ---
Abdominal Pain HPI - General Chief Complaint: Abdominal Pain Stated Complaint: abd pain Time Seen by Provider: 12/10/22 10:36 Source: patient Mode of arrival: ambulatory Limitations: no limitations - History of Present Illness Initial Comments: Patient is a 32-year-old female who presents to the emergency department who presents to the emergency department for abdominal pain. Patient has chronic abdominal pain states this feels similar. She does have a history of recurrent pancreatitis. She has pain in her upper middle abdomen. No radiation. No ripping or tearing nature. She feels nauseous and has had multiple episodes of vomiting today, nonbloody. She denies fever and chills. Denies urinary symptoms. Denies diarrhea, constipation, blood in stool. Denies chest pain and shortness of breath. - Related Data Home Medications Medication Instructions Recorded Confirmed Omeprazole 20 mg PO BID 11/16/21 12/10/22 Acetaminophen [Tylenol Extra 500 mg PO Q4H PRN 03/30/22 12/10/22 Strength] Insulin Aspart [NovoLOG Flexpen] See Protocol SQ TID-W/MEALS 03/30/22 12/10/22 Insulin Glargine,Hum.rec.anlog 45 units SQ DAILY 03/30/22 12/10/22 [Lantus Solostar Pen] Ondansetron Odt [Zofran ODT] 4 mg PO Q6H PRN 03/30/22 12/10/22 tiZANidine [Zanaflex] 4 mg PO BID PRN 03/30/22 12/10/22 Etonogestrel [Nexplanon] 68 mg INTRADERMA DIRECTED 06/22/22 12/10/22 Albuterol Nebulized [Ventolin 2.5 mg INHALATION RT-Q4H PRN 09/18/22 12/10/22 Nebulized] Insulin Aspart [NovoLOG Flexpen] 10 units SQ TID-W/MEALS 09/18/22 12/10/22 Lipase/Protease/Amylase [Zenpep Dr 2 cap PO TID-W/MEALS 09/18/22 12/10/22 5,000 Unit Capsule] Pioglitazone [Actos] 30 mg PO DAILY 09/18/22 12/10/22 Atorvastatin [Lipitor] 80 mg PO HS 10/27/22 12/10/22 EPINEPHrine (Auto Inject) [Epipen] 0.3 mg IM DIRECTED PRN 10/27/22 12/10/22 Fenofibrate [Lofibra] 160 mg PO DAILY 10/27/22 12/10/22 QUEtiapine FUMARATE [SEROquel] 600 mg PO HS 11/09/22 12/10/22 Fluoride (Sodium) [Sodium Fluoride 1 applic DENTAL DAILY 12/10/22 12/10/22 5000 Plus] Metoclopramide [Reglan] 5 mg PO ACHS PRN 12/10/22 12/10/22 Pantoprazole [Protonix] 40 mg PO BID 12/10/22 12/10/22 Sucralfate [Carafate] 1 gm PO BID 12/10/22 12/10/22 metFORMIN HCL 1,000 mg PO BID 12/10/22 12/10/22 sitaGLIPtin [Januvia] 100 mg PO DAILY 12/10/22 12/10/22 Previous Rx's Medication Instructions Recorded Ibuprofen [Motrin] 800 mg PO Q8HR PRN #30 tab 06/07/22 Allergies Allergy/AdvReac Type Severity Reaction Status Date / Time bee pollen Allergy Severe Anaphylaxis Verified 12/12/22 11:01 haloperidol lactate Allergy Severe QUIT Verified 12/12/22 11:01 [From Haldol] BREATHING latex Allergy Severe RASH-THROAT Verified 12/12/22 11:01 CLOSES [place] Allergy Anaphylaxis Verified 12/12/22 11:01 coconut Allergy Anaphylaxis Verified 12/12/22 11:01 pineapple Allergy Anaphylaxis Verified 12/12/22 11:01 spider venom Allergy Swelling Verified 12/12/22 11:01 Sulfa (Sulfonamide Allergy Anaphylaxis Verified 12/12/22 11:01 Antibiotics) venom-wasp Allergy Swelling Verified 12/12/22 11:01 venom-wasp protein Allergy Swelling Verified 12/12/22 11:01 promethazine HCl AdvReac Severe Nausea & Verified 12/12/22 11:01 [From Phenergan] Vomiting amoxicillin AdvReac Nausea & Verified 12/12/22 11:01 Vomiting ANTS AdvReac Mild Anaphylaxis Uncoded 12/12/22 11:01 Review of Systems ROS Statement: Those systems with pertinent positive or pertinent negative responses have been documented in the HPI. ROS Other: All systems not noted in ROS Statement are negative. Past Medical History Past Medical History: Asthma, Diabetes Mellitus, GERD/Reflux Additional Past Medical History / Comment(s): migraines, degenerative disk disease, endometriosis, lupus, pancreatitis, DM2- insulin, gastroparesis History of Any Multi-Drug Resistant Organisms: None Reported Past Surgical History: Cholecystectomy, Orthopedic Surgery Additional Past Surgical History / Comment(s): laparoscopc surgery for endometriosis, cyst removed from left foot, EGD, Past Anesthesia/Blood Transfusion Reactions: Previous Problems w/ Anesthesia Additional Past Anesthesia/Blood Transfusion Reaction / Comment(s): hard to wake up for 48-72 hours after laparoscopic surgery-was in hosp. for 3 days Past Psychological History: Anxiety, Depression, PTSD Smoking Status: Former smoker, Vaper Past Alcohol Use History: None Reported Past Drug Use History: Marijuana - Past Family History Mother Family Medical History: Cancer Additional Family Medical History / Comment(s): Migraines, pancreatic cancer, . Father Family Medical History: Coronary Artery Disease (CAD), Hypertension Additional Family Medical History / Comment(s): ddd, alcoholism & drug use General Exam Limitations: no limitations General appearance: alert Eye exam: Present: normal appearance, PERRL, EOMI. Absent: scleral icterus, conjunctival injection, periorbital swelling Respiratory exam: Present: normal lung sounds bilaterally. Absent: respiratory distress, wheezes, rales, rhonchi, stridor Cardiovascular Exam: Present: regular rate, normal rhythm, normal heart sounds. Absent: systolic murmur, diastolic murmur, rubs, gallop, clicks GI/Abdominal exam: Present: soft, tenderness, normal bowel sounds. Absent: distended, guarding, rebound, rigid Course Vital Signs 12/10/22 12/10/22 12/10/22 10:13 12:49 14:00 Temperature 98.9 F Pulse Rate 128 H 134 H 125 H Respiratory 18 19 18 Rate Blood Pressure 135/93 136/100 O2 Sat by Pulse 99 99 98 Oximetry 12/10/22 14:59 Temperature Pulse Rate 121 H Respiratory 18 Rate Blood Pressure 133/89 O2 Sat by Pulse 98 Oximetry Medical Decision Making - Medical Decision Making Was pt. sent in by a medical professional or institution (, PA, WET END TESTER, urgent care, hospital, or assisted...) When possible be specific @ -No Did you speak to anyone other than the patient for history (EMS, parent, family, police, friend...)? What history was obtained from this source @ -No Did you review nursing and triage notes (agree or disagree)? Why? @ -I reviewed and agree with nursing and triage notes Were old charts reviewed (outside hosp., previous admission, EMS record, old EKG, old radiological studies, urgent care reports/EKG's, assisted records)? Report findings @ -No old charts were reviewed Differential Diagnosis (chest pain, altered mental status, abdominal pain women, abdominal pain men, vaginal bleeding, weakness, fever, dyspnea, syncope, headache, dizziness, GI bleed, back pain, seizure, CVA, palpatations, mental health)? @ -Differential Abdominal Pain Women: Appendicitis, Cholecystitis, diverticulosis, ischemic bowel, pancreatitis, hepatitis, UTI, gastroenteritis, AAA, incarcerated hernia, bowel obstruction, constipation, inflammatory bowel, hepatitis, peptic ulcer disease, splenic infarction, perforated viscus, vulvitis, ovarian torsion, PID, kidney stone, placenta abruption, this is not meant to be an all-inclusive list EKG interpreted by me (3pts min.). @ -As above X-rays interpreted by me (1pt min.). @ -None done CT interpreted by me (1pt min.). @ -None done U/S interpreted by me (1pt. min.). @ -None done What testing was considered but not performed or refused? (CT, X-rays, U/S, labs)? Why? @ -Considered imaging of the abdomen however clinical presentation consistent with patient's chronic abdominal pain. What meds were considered but not given or refused? Why? @ -None Did you discuss the management of the patient with other professionals (professionals i.e. , PA, WET END TESTER, lab, RT, psych nurse, social group worker, heavy machinery operator, teacher, security control room officer, bilingual patient support caseworker)? Give summary @ -No Was smoking cessation discussed for >3mins.? @ -No Was critical care preformed (if so, how long)? @ -No Were there social determinants of health that impacted care today? How? (Homelessness, low income, unemployed, alcoholism, drug addiction, transportation, low edu. Level, literacy, decrease access to med. care, retirement, rehab)? @ -No Was there de-escalation of care discussed even if they declined (Discuss DNR or withdrawal of care, Hospice)? DNR status @ -No What co-morbidities impacted this encounter? (DM, HTN, Smoking, COPD, CAD, Cancer, CVA, ARF, Chemo, Hep., AIDS, mental health diagnosis, sleep apnea, morbid obesity)? @ -None Was patient admitted? -Patient presented for abdominal pain. She is tachycardic at 128. The abdomen is soft is mild tenderness in the epigastric region. Labs obtained. There anion gap metabolic Acidosis, bicarbonate 18, anion gap 17, likely related to dehydration. Other laboratory studies are relatively unremarkable. Patient given Toradol, IV fluids, Zofran. Tachycardia improved. She was also given Benadryl as requested for nausea. Patient had no further episodes of vomiting. She requested additional pain medication Tylenol was given. Patient then asked for Dilaudid I informed patient I cannot give narcotic medication for chronic pain. I did order Bentyl however upon receiving the medication patient states it does not work for her that she would like to go home. Patient tolerating oral fluids and is in stable medical condition for discharge. New undiagnosed new problem with uncertain prognosis? @ -No Drug Therapy requiring intensive monitoring for toxicity (Heparin, Nitro, Insulin, Cardizem)? @ -No Were any procedures done? @ -No Diagnosis/symptom? @ -chronic abdominal pain, dehydration Acute, or Chronic, or Acute on Chronic? @ -acute Uncomplicated (without systemic symptoms) or Complicated (systemic symptoms)? @ -uncomplicated Side effects of treatment? @ -No Exacerbation, Progression, or Severe Exacerbation? @ -No Poses a threat to life or bodily function? How? (Chest pain, [place], [place], pneumonia, PE, COPD, DKA, ARF, appy, cholecystitis, CVA, Diverticulitis, Homicidal, Suicidal, threat to staff... and all critical care pts) @ -No Dr. Ray is my attending - Lab Data Result diagrams: 12/10/22 12:15 12/10/22 12:15 Lab Results 12/10/22 12/10/22 12/10/22 Range/Units 10:37 10:37 12:15 WBC 4.3 (3.8-10.6) k/uL RBC 4.65 (3.80-5.40) m/uL Hgb 14.1 (11.4-16.0) gm/dL Hct 41.5 (34.0-46.0) % MCV 89.1 (80.0-100.0) fL MCH 30.3 (25.0-35.0) pg MCHC 33.9 (31.0-37.0) g/dL RDW 14.4 (11.5-15.5) % Plt Count 219 (150-450) k/uL MPV 8.5 Neutrophils % 57 % Lymphocytes % 32 % Monocytes % 6 % Eosinophils % 2 % Basophils % 0 % Neutrophils # 2.5 (1.3-7.7) k/uL Lymphocytes # 1.4 (1.0-4.8) k/uL Monocytes # 0.3 (0-1.0) k/uL Eosinophils # 0.1 (0-0.7) k/uL Basophils # 0.0 (0-0.2) k/uL Sodium (137-145) mmol/L Potassium (3.5-5.1) mmol/L Chloride (98-107) mmol/L Carbon Dioxide (22-30) mmol/L Anion Gap mmol/L BUN (7-17) mg/dL Creatinine (0.52-1.04) mg/dL Est GFR (CKD-EPI)AfAm (>60 ml/min/1.73 sqM) Est GFR (CKD-EPI)NonAf (>60 ml/min/1.73 sqM) Glucose (74-99) mg/dL Calcium (8.4-10.2) mg/dL Total Bilirubin (0.2-1.3) mg/dL AST (14-36) U/L ALT (4-34) U/L Alkaline Phosphatase (38-126) U/L Total Protein (6.3-8.2) g/dL Albumin (3.5-5.0) g/dL Lipase (23-300) U/L Urine Color Colorless Urine Appearance Clear (Clear) Urine pH 6.5 (5.0-8.0) Ur Specific [place] 1.002 (1.001-1.035) Urine Protein Negative (Negative) Urine Glucose (UA) Negative (Negative) Urine Ketones Negative (Negative) Urine Blood Small H (Negative) Urine Nitrite Negative (Negative) Urine Bilirubin Negative (Negative) Urine Urobilinogen <2.0 (<2.0) mg/dL Ur Leukocyte Esterase Negative (Negative) Urine RBC 1 (0-5) /hpf Urine WBC 2 (0-5) /hpf Ur Squamous Epith Cells 2 (0-4) /hpf Urine Bacteria Many H (None) /hpf Urine HCG, Qual Not Detected (Not Detectd) 12/10/22 Range/Units 12:15 WBC (3.8-10.6) k/uL RBC (3.80-5.40) m/uL Hgb (11.4-16.0) gm/dL Hct (34.0-46.0) % MCV (80.0-100.0) fL MCH (25.0-35.0) pg MCHC (31.0-37.0) g/dL RDW (11.5-15.5) % Plt Count (150-450) k/uL MPV Neutrophils % % Lymphocytes % % Monocytes % % Eosinophils % % Basophils % % Neutrophils # (1.3-7.7) k/uL Lymphocytes # (1.0-4.8) k/uL Monocytes # (0-1.0) k/uL Eosinophils # (0-0.7) k/uL Basophils # (0-0.2) k/uL Sodium 139 (137-145) mmol/L Potassium 4.5 (3.5-5.1) mmol/L Chloride 104 (98-107) mmol/L Carbon Dioxide 18 L (22-30) mmol/L Anion Gap 17 mmol/L BUN 6 L (7-17) mg/dL Creatinine 0.51 L (0.52-1.04) mg/dL Est GFR (CKD-EPI)AfAm >90 (>60 ml/min/1.73 sqM) Est GFR (CKD-EPI)NonAf >90 (>60 ml/min/1.73 sqM) Glucose 162 H (74-99) mg/dL Calcium 11.3 H (8.4-10.2) mg/dL Total Bilirubin 0.6 (0.2-1.3) mg/dL AST 53 H (14-36) U/L ALT 32 (4-34) U/L Alkaline Phosphatase 86 (38-126) U/L Total Protein 8.5 H (6.3-8.2) g/dL Albumin 4.5 (3.5-5.0) g/dL Lipase 153 (23-300) U/L Urine Color Urine Appearance (Clear) Urine pH (5.0-8.0) Ur Specific [place] (1.001-1.035) Urine Protein (Negative) Urine Glucose (UA) (Negative) Urine Ketones (Negative) Urine Blood (Negative) Urine Nitrite (Negative) Urine Bilirubin (Negative) Urine Urobilinogen (<2.0) mg/dL Ur Leukocyte Esterase (Negative) Urine RBC (0-5) /hpf Urine WBC (0-5) /hpf Ur Squamous Epith Cells (0-4) /hpf Urine Bacteria (None) /hpf Urine HCG, Qual (Not Detectd) Disposition Clinical Impression: Chronic abdominal pain, Dehydration Disposition: HOME SELF-CARE Condition: Good Instructions (If sedation given, give patient instructions): Abdominal Pain (ED) Additional Instructions: Please follow-up with your primary care provider in 1-2 days. Return to the emergency department if you experience new, concerning, or worsening symptoms. Is patient prescribed a controlled substance at d/c from ED?: No Referrals: Isi Carolina MD [Primary Care Provider] - 1-2 days
[2022-12-10 15:02] VITALS: BP 133/89; PULSE 121
== END 2022-12-10 15:02 | disposition home or self-care (01) ==
LOC: EC 10:02
DX: G89.29 Other chronic pain (principal); R10.9 Unspecified abdominal pain; E86.0 Dehydration; E11.9 Type 2 diabetes mellitus without complications; K21.9 Gastro-esophageal reflux disease without esophagitis; J45.909 Unspecified asthma, uncomplicated; F32.A Depression, unspecified; F41.9 Anxiety disorder, unspecified; F17.200 Nicotine dependence, unspecified, uncomplicated; F12.90 Cannabis use, unspecified, uncomplicated; Z79.4 Long term (current) use of insulin; Z79.84 Long term (current) use of oral hypoglycemic drugs; Z79.899 Other long term (current) drug therapy; Z87.891 Personal history of nicotine dependence; Z88.0 Allergy status to penicillin; Z88.2 Allergy status to sulfonamides; Z88.8 Allergy status to other drugs, medicaments and biological substances; Z91.030 Bee allergy status; Z91.018 Allergy to other foods; Z91.040 Latex allergy status
CPT/HCPCS: 36415; 80053; 83690; 85025; 81001; 81025; 99284; 96374; 96375 ×2; 96361 ×2; J1200; J2405; J1885

== ENCOUNTER 2022-12-12 10:43 | Emergency (ER) | payer OTHER ==
[2022-12-12 11:01] VITALS: TEMP 98.1
[2022-12-12] MEDS ORDERED: SODIUM CHLORIDE 0.9% 1,000 ML IV STA ×2 (11:44→13:42)
[2022-12-12] MEDS ORDERED: diphenhydrAMINE 50 MG/ML 1 ML VIAL IVP STA (11:47)
[2022-12-12] MEDS ORDERED: ONDANSETRON 4 MG/2 ML VIAL IVP STA (11:47)
[2022-12-12] MEDS ORDERED: KETOROLAC 15 MG/ML 1 ML VIAL IVP STA (11:47)
[2022-12-12 12:55] LABS: Basophils % (A) 0 %; Eosinophils # (A) 0.1 k/uL (0-0.7); Eosinophils % (A) 2 %; HGB 11.3 gm/dL (11.4-16.0); Hypochromasia Slight; Lymphocytes # (A) 1.5 k/uL (1.0-4.8); Lymphocytes % (A) 29 %; MCH 29.1 pg (25.0-35.0); MCHC 32.4 g/dL (31.0-37.0); MCV 89.7 fL (80.0-100.0); Mean Platelet Volume 8.7; Monocytes # (A) 0.3 k/uL (0-1.0); Monocytes % (A) 5 %; Neutrophils # (A) 3.1 k/uL (1.3-7.7); Neutrophils % (A) 61 %; Platelet Count 210 k/uL (150-450); RDW 14.6 % (11.5-15.5); WBC 5.1 k/uL (3.8-10.6)
[2022-12-12 13:07] LABS: ALT 24 U/L (4-34); AST 32 U/L (14-36); African American GFR (CKD) >90 (>60 ml/min/1.73 sqM); Albumin 3.4 g/dL (3.5-5.0); Alkaline Phosphatase 73 U/L (38-126); Anion Gap 7 mmol/L; Blood Urea Nitrogen 4 mg/dL (7-17); Calcium 10.1 mg/dL (8.4-10.2); Carbon Dioxide 20 mmol/L (22-30); Chloride 109 mmol/L (98-107); Glucose 181 mg/dL (74-99); Lipase 207 U/L (23-300); Non-African American GFR(CKD) >90 (>60 ml/min/1.73 sqM); Potassium 4.4 mmol/L (3.5-5.1); Sodium 136 mmol/L (137-145); Total Bilirubin 0.4 mg/dL (0.2-1.3); Total Protein 6.5 g/dL (6.3-8.2)
[2022-12-12] MEDS ORDERED: ACETAMINOPHEN TAB 500 MG TAB PO STA (14:10)
[2022-12-12 15:12] VITALS: BP 133/82; PULSE 122; RESP 16
[2022-12-12] MEDS ORDERED: MAG HYDROX/AL HYDROX/SIMETH 30 ML, HYOSCYAMINE ELIXIR 10 ML, LIDOCAINE 2% GLYDO JELLY 1... PO STA ×3 (15:28)
[2022-12-12] MEDS ORDERED: PANTOPRAZOLE 40 MG/10 ML VIAL IVP STA (15:28)
--- NOTE | 2022-12-12 16:03 | ED ---
Abdominal Pain HPI - General Chief Complaint: Abdominal Pain Stated Complaint: Abd Pain Time Seen by Provider: 12/12/22 11:44 Source: patient Mode of arrival: ambulatory Limitations: no limitations - History of Present Illness Initial Comments: Patient is a 32-year-old female who presents the emergency department for abdominal pain. Patient has history of chronic abdominal pain and recurrent pancreatitis she states this feels similar. She denies back pain. She reports nausea with multiple episodes of vomiting, nonbloody. She denies fever, chills, urinary symptoms, blood in stool, constipation, diarrhea. Patient states she has not followed up with pain management in 3 months. She also reports a mild migraine. She has history of migraines denies any changes in severity or characteristic of her chronic migraines. She denies recent fall and head trauma. Denies numbness and tingling. Denies focal weakness. Denies upper respiratory symptoms. Denies chest pain and shortness of breath. - Related Data Home Medications Medication Instructions Recorded Confirmed Omeprazole 20 mg PO BID 11/16/21 12/10/22 Acetaminophen [Tylenol Extra 500 mg PO Q4H PRN 03/30/22 12/10/22 Strength] Insulin Aspart [NovoLOG Flexpen] See Protocol SQ TID-W/MEALS 03/30/22 12/10/22 Insulin Glargine,Hum.rec.anlog 45 units SQ DAILY 03/30/22 12/10/22 [Lantus Solostar Pen] Ondansetron Odt [Zofran ODT] 4 mg PO Q6H PRN 03/30/22 12/10/22 tiZANidine [Zanaflex] 4 mg PO BID PRN 03/30/22 12/10/22 Etonogestrel [Nexplanon] 68 mg INTRADERMA DIRECTED 06/22/22 12/10/22 Albuterol Nebulized [Ventolin 2.5 mg INHALATION RT-Q4H PRN 09/18/22 12/10/22 Nebulized] Insulin Aspart [NovoLOG Flexpen] 10 units SQ TID-W/MEALS 09/18/22 12/10/22 Lipase/Protease/Amylase [Zenpep Dr 2 cap PO TID-W/MEALS 09/18/22 12/10/22 5,000 Unit Capsule] Pioglitazone [Actos] 30 mg PO DAILY 09/18/22 12/10/22 Atorvastatin [Lipitor] 80 mg PO HS 10/27/22 12/10/22 EPINEPHrine (Auto Inject) [Epipen] 0.3 mg IM DIRECTED PRN 10/27/22 12/10/22 Fenofibrate [Lofibra] 160 mg PO DAILY 10/27/22 12/10/22 QUEtiapine FUMARATE [SEROquel] 600 mg PO HS 11/09/22 12/10/22 Fluoride (Sodium) [Sodium Fluoride 1 applic DENTAL DAILY 12/10/22 12/10/22 5000 Plus] Metoclopramide [Reglan] 5 mg PO ACHS PRN 12/10/22 12/10/22 Pantoprazole [Protonix] 40 mg PO BID 12/10/22 12/10/22 Sucralfate [Carafate] 1 gm PO BID 12/10/22 12/10/22 metFORMIN HCL 1,000 mg PO BID 12/10/22 12/10/22 sitaGLIPtin [Januvia] 100 mg PO DAILY 12/10/22 12/10/22 Previous Rx's Medication Instructions Recorded Ibuprofen [Motrin] 800 mg PO Q8HR PRN #30 tab 06/07/22 Allergies Allergy/AdvReac Type Severity Reaction Status Date / Time bee pollen Allergy Severe Anaphylaxis Verified 12/12/22 11:01 haloperidol lactate Allergy Severe QUIT Verified 12/12/22 11:01 [From Haldol] BREATHING latex Allergy Severe RASH-THROAT Verified 12/12/22 11:01 CLOSES murrieta Allergy Anaphylaxis Verified 12/12/22 11:01 coconut Allergy Anaphylaxis Verified 12/12/22 11:01 pineapple Allergy Anaphylaxis Verified 12/12/22 11:01 spider venom Allergy Swelling Verified 12/12/22 11:01 Sulfa (Sulfonamide Allergy Anaphylaxis Verified 12/12/22 11:01 Antibiotics) venom-wasp Allergy Swelling Verified 12/12/22 11:01 venom-wasp protein Allergy Swelling Verified 12/12/22 11:01 promethazine HCl AdvReac Severe Nausea & Verified 12/12/22 11:01 [From Phenergan] Vomiting amoxicillin AdvReac Nausea & Verified 12/12/22 11:01 Vomiting ANTS AdvReac Mild Anaphylaxis Uncoded 12/12/22 11:01 Review of Systems ROS Statement: Those systems with pertinent positive or pertinent negative responses have been documented in the HPI. ROS Other: All systems not noted in ROS Statement are negative. Past Medical History Past Medical History: Asthma, Diabetes Mellitus, GERD/Reflux Additional Past Medical History / Comment(s): migraines, degenerative disk disease, endometriosis, lupus, pancreatitis, DM2- insulin, gastroparesis History of Any Multi-Drug Resistant Organisms: None Reported Past Surgical History: Cholecystectomy, Orthopedic Surgery Additional Past Surgical History / Comment(s): laparoscopc surgery for endometriosis, cyst removed from left foot, EGD, Past Anesthesia/Blood Transfusion Reactions: Previous Problems w/ Anesthesia Additional Past Anesthesia/Blood Transfusion Reaction / Comment(s): hard to wake up for 48-72 hours after laparoscopic surgery-was in hosp. for 3 days Past Psychological History: Anxiety, Depression, PTSD Smoking Status: Former smoker, Vaper Past Alcohol Use History: None Reported Past Drug Use History: Marijuana - Past Family History Mother Family Medical History: Cancer Additional Family Medical History / Comment(s): Migraines, pancreatic cancer, . Father Family Medical History: Coronary Artery Disease (CAD), Hypertension Additional Family Medical History / Comment(s): ddd, alcoholism & drug use General Exam Limitations: no limitations General appearance: alert Head exam: Present: atraumatic, normocephalic, normal inspection Eye exam: Present: normal appearance, PERRL, EOMI. Absent: scleral icterus, conjunctival injection, periorbital swelling Respiratory exam: Present: normal lung sounds bilaterally. Absent: respiratory distress, wheezes, rales, rhonchi, stridor Cardiovascular Exam: Present: regular rate, normal rhythm, normal heart sounds. Absent: systolic murmur, diastolic murmur, rubs, gallop, clicks GI/Abdominal exam: Present: soft, tenderness (Mild epigastric), normal bowel sounds. Absent: distended, guarding, rebound, rigid Neurological exam: Present: alert Expanded Sensory exam: Upper Extremity Light Touch: Normal, Lower Extremity Light Touch: Normal Motor strength exam: RUE: 5, LUE: 5, RLE: 5, LLE: 5 Skin exam: Present: warm, dry, intact, normal color. Absent: rash Course Vital Signs 12/12/22 12/12/22 12/12/22 10:58 13:28 15:11 Temperature 98.1 F Pulse Rate 120 H 112 H 122 H Respiratory 18 18 16 Rate Blood Pressure 130/90 126/82 133/82 O2 Sat by Pulse 97 98 97 Oximetry Medical Decision Making - Medical Decision Making EKG taken at 15:43, interpreted by myself Sinus tachycardia Ventricular rate 124, WI interval 135, QRS duration 84, QTC 410 Was pt. sent in by a medical professional or institution (SADE López, BUSINESS OPERATIONS CONSULTANT, urgent care, hospital, or [facility]...) When possible be specific @ -No Did you speak to anyone other than the patient for history (EMS, parent, family, police, friend...)? What history was obtained from this source @ -No Did you review nursing and triage notes (agree or disagree)? Why? @ -I reviewed and agree with nursing and triage notes Were old charts reviewed (outside hosp., previous admission, EMS record, old EKG, old radiological studies, urgent care reports/EKG's, [facility] records)? Report findings @ -No old charts were reviewed Differential Diagnosis (chest pain, altered mental status, abdominal pain women, abdominal pain men, vaginal bleeding, weakness, fever, dyspnea, syncope, headache, dizziness, GI bleed, back pain, seizure, CVA, palpatations, mental health)? @ -not applicable EKG interpreted by me (3pts min.). @ -As above X-rays interpreted by me (1pt min.). @ -None done CT interpreted by me (1pt min.). @ -None done U/S interpreted by me (1pt. min.). @ -None done What testing was considered but not performed or refused? (CT, X-rays, U/S, labs)? Why? @ -None What meds were considered but not given or refused? Why? @ -None Did you discuss the management of the patient with other professionals (professionals i.e. SADE López, BUSINESS OPERATIONS CONSULTANT, lab, RT, psych nurse, child welfare social worker, air twist operator, teacher, youth liaison officer, rifle case repairer)? Give summary @ -No Was smoking cessation discussed for >3mins.? @ -No Was critical care preformed (if so, how long)? @ -No Were there social determinants of health that impacted care today? How? (Homelessness, low income, unemployed, alcoholism, drug addiction, transportation, low edu. Level, literacy, decrease access to med. care, half-way, rehab)? @ -No Was there de-escalation of care discussed even if they declined (Discuss DNR or withdrawal of care, Hospice)? DNR status @ -No What co-morbidities impacted this encounter? (DM, HTN, Smoking, COPD, CAD, Cancer, CVA, ARF, Chemo, Hep., AIDS, mental health diagnosis, sleep apnea, morbid obesity)? @ -None Was patient admitted / discharged? Hospital course, mention meds given and route, prescriptions, significant lab abnormalities, going to OR and other pertinent info. @ Patient presented for chronic abdominal pain and migraine. She is afebrile. She is tachycardic at 120 likely related to dehydration as patient appears dry. No neurological deficit on exam. No alarming features.Laboratory studies obtained. There is no leukocytosis. Lipase is within normal limits. There is non-anion gap acidosis, improved from last visit on 12/10. Other laboratory studies are relatively unremarkable. Patient given Toradol, Benadryl, Zofran, IV fluids. She continued to complain of epigastric pain. I then gave Tylenol with some relief however shortly after patient asked for stronger pain medication. She remained tachycardic after 1 L bolus I did obtain an EKG showing sinus tachycardia. A second bolus was initiated. Patient was given Protonix and a GI cocktail. She then spoke with me stating abdominal pain is better but headache is worsening. I ordered Solu- Medrol as patient has history of migraines. She then told the nurse that she wanted a different doctor and eloped. Undiagnosed new problem with uncertain prognosis? @ -No Drug Therapy requiring intensive monitoring for toxicity (Heparin, Nitro, Insulin, Cardizem)? @ -No Were any procedures done? @ -No Diagnosis/symptom? @ -Chronic abdominal pain, migraine Acute, or Chronic, or Acute on Chronic? @ -Acute Uncomplicated (without systemic symptoms) or Complicated (systemic symptoms)? @ -Uncomplicated Side effects of treatment? @ -No Exacerbation, Progression, or Severe Exacerbation? @ -No Poses a threat to life or bodily function? How? (Chest pain, [place], [place], pneumonia, PE, COPD, DKA, ARF, appy, cholecystitis, CVA, Diverticulitis, Homicidal, Suici sha, threat to staff... and all critical care pts) @ -Unknown Dr. Ray is my attending - Lab Data Result diagrams: 12/12/22 12:34 12/12/22 12:34 Lab Results 12/12/22 12/12/22 Range/Units 12:34 12:34 WBC 5.1 (3.8-10.6) k/uL RBC 3.90 (3.80-5.40) m/uL Hgb 11.3 L (11.4-16.0) gm/dL Hct 35.0 (34.0-46.0) % MCV 89.7 (80.0-100.0) fL MCH 29.1 (25.0-35.0) pg MCHC 32.4 (31.0-37.0) g/dL RDW 14.6 (11.5-15.5) % Plt Count 210 (150-450) k/uL MPV 8.7 Neutrophils % 61 % Lymphocytes % 29 % Monocytes % 5 % Eosinophils % 2 % Basophils % 0 % Neutrophils # 3.1 (1.3-7.7) k/uL Lymphocytes # 1.5 (1.0-4.8) k/uL Monocytes # 0.3 (0-1.0) k/uL Eosinophils # 0.1 (0-0.7) k/uL Basophils # 0.0 (0-0.2) k/uL Manual Slide Review Performed Hypochromasia Slight Sodium 136 L (137-145) mmol/L Potassium 4.4 (3.5-5.1) mmol/L Chloride 109 H (98-107) mmol/L Carbon Dioxide 20 L (22-30) mmol/L Anion Gap 7 mmol/L BUN 4 L (7-17) mg/dL Creatinine 0.44 L (0.52-1.04) mg/dL Est GFR (CKD-EPI)AfAm >90 (>60 ml/min/1.73 sqM) Est GFR (CKD-EPI)NonAf >90 (>60 ml/min/1.73 sqM) Glucose 181 H (74-99) mg/dL Calcium 10.1 (8.4-10.2) mg/dL Total Bilirubin 0.4 (0.2-1.3) mg/dL AST 32 (14-36) U/L ALT 24 (4-34) U/L Alkaline Phosphatase 73 (38-126) U/L Total Protein 6.5 (6.3-8.2) g/dL Albumin 3.4 L (3.5-5.0) g/dL Lipase 207 (23-300) U/L Disposition Clinical Impression: Chronic abdominal pain, Migraine Disposition: LEFT AGAINST MEDICAL ADVICE Condition: Undetermined Referrals: Isi Carolina MD [Primary Care Provider] - 1-2 days
[2022-12-12] MEDS ORDERED: methylPREDNISolone SOD SUCCI 125 MG/2 ML VIAL IV STA (16:06)
== END 2022-12-12 16:31 | disposition left against medical advice (07) ==
LOC: EC 10:43
DX: G89.29 Other chronic pain (principal); R10.13 Epigastric pain; G43.909 Migraine, unspecified, not intractable, without status migrainosus; K21.9 Gastro-esophageal reflux disease without esophagitis; E11.9 Type 2 diabetes mellitus without complications; J45.909 Unspecified asthma, uncomplicated; F32.A Depression, unspecified; F41.9 Anxiety disorder, unspecified; F17.290 Nicotine dependence, other tobacco product, uncomplicated; F12.90 Cannabis use, unspecified, uncomplicated; Z88.8 Allergy status to other drugs, medicaments and biological substances; Z88.2 Allergy status to sulfonamides; Z91.030 Bee allergy status; Z91.040 Latex allergy status; Z91.018 Allergy to other foods; Z88.0 Allergy status to penicillin; Z79.4 Long term (current) use of insulin; Z79.84 Long term (current) use of oral hypoglycemic drugs; Z79.899 Other long term (current) drug therapy; Z90.49 Acquired absence of other specified parts of digestive tract; Z53.29 Procedure and treatment not carried out because of patient's decision for other reasons
CPT/HCPCS: 36415; 93005; 80053; 83690; 85025; 99284; 96374; 96375 ×4; 96361 ×2; J1200; J2930; J2405; J1885; C9113

== ENCOUNTER 2022-12-16 01:30 | Emergency (ER) | payer OTHER ==
[2022-12-16 02:26] VITALS: BP 149/107; PULSE 107; RESP 20; TEMP 97.8
[2022-12-16] MEDS ORDERED: HYDROmorphone 1 MG/ML 1 ML SYRINGE IM STA (04:41)
[2022-12-16] MEDS ORDERED: PROCHLORPERAZINE 10 MG TAB PO STA (04:41)
[2022-12-16] MEDS ORDERED: diphenhydrAMINE 50 MG CAP PO STA (04:41)
--- NOTE | 2022-12-16 04:46 | ED ---
Recheck HPI - General Chief Complaint: Headache Stated Complaint: Migraine, ABD Pain Time Seen by Provider: 12/16/22 04:31 Source: patient, RN notes reviewed, old records reviewed Mode of arrival: ambulatory Limitations: no limitations - History of Present Illness Initial Comments: This is a 32-year-old female presents today for evaluation today. Patient Dese for evaluation abdominal pain nausea no active vomiting with headache. No recent fevers or other injury. These are patient's chronic comorbidities and states retinal medication just wasn't fully working today. Patient presents to ER under these circumstances. Symptoms are not new MD Complaint: medication refill request, other (Uncontrolled symptoms) -: hour(s) Returns Today for: persistent/worsening pain related to initial visit Symptoms Since Prior Visit: worsening pain Context: planned re-check Associated Symptoms: none Treatments Prior to Arrival: Given Pain Meds on - Related Data Home Medications Medication Instructions Recorded Confirmed Omeprazole 20 mg PO BID 11/16/21 12/10/22 Acetaminophen [Tylenol Extra 500 mg PO Q4H PRN 03/30/22 12/10/22 Strength] Insulin Aspart [NovoLOG Flexpen] See Protocol SQ TID-W/MEALS 03/30/22 12/10/22 Insulin Glargine,Hum.rec.anlog 45 units SQ DAILY 03/30/22 12/10/22 [Lantus Solostar Pen] Ondansetron Odt [Zofran ODT] 4 mg PO Q6H PRN 03/30/22 12/10/22 tiZANidine [Zanaflex] 4 mg PO BID PRN 03/30/22 12/10/22 Etonogestrel [Nexplanon] 68 mg INTRADERMA DIRECTED 06/22/22 12/10/22 Albuterol Nebulized [Ventolin 2.5 mg INHALATION RT-Q4H PRN 09/18/22 12/10/22 Nebulized] Insulin Aspart [NovoLOG Flexpen] 10 units SQ TID-W/MEALS 09/18/22 12/10/22 Lipase/Protease/Amylase [Zenpep Dr 2 cap PO TID-W/MEALS 09/18/22 12/10/22 5,000 Unit Capsule] Pioglitazone [Actos] 30 mg PO DAILY 09/18/22 12/10/22 Atorvastatin [Lipitor] 80 mg PO HS 10/27/22 12/10/22 EPINEPHrine (Auto Inject) [Epipen] 0.3 mg IM DIRECTED PRN 10/27/22 12/10/22 Fenofibrate [Lofibra] 160 mg PO DAILY 10/27/22 12/10/22 QUEtiapine FUMARATE [SEROquel] 600 mg PO HS 11/09/22 12/10/22 Fluoride (Sodium) [Sodium Fluoride 1 applic DENTAL DAILY 12/10/22 12/10/22 5000 Plus] Metoclopramide [Reglan] 5 mg PO ACHS PRN 12/10/22 12/10/22 Pantoprazole [Protonix] 40 mg PO BID 12/10/22 12/10/22 Sucralfate [Carafate] 1 gm PO BID 12/10/22 12/10/22 metFORMIN HCL 1,000 mg PO BID 12/10/22 12/10/22 sitaGLIPtin [Januvia] 100 mg PO DAILY 12/10/22 12/10/22 Previous Rx's Medication Instructions Recorded Ibuprofen [Motrin] 800 mg PO Q8HR PRN #30 tab 06/07/22 Allergies Allergy/AdvReac Type Severity Reaction Status Date / Time bee pollen Allergy Severe Anaphylaxis Verified 12/16/22 02:26 haloperidol lactate Allergy Severe QUIT Verified 12/16/22 02:26 [From Haldol] BREATHING latex Allergy Severe RASH-THROAT Verified 12/16/22 02:26 CLOSES murrieta Allergy Anaphylaxis Verified 12/16/22 02:26 coconut Allergy Anaphylaxis Verified 12/16/22 02:26 pineapple Allergy Anaphylaxis Verified 12/16/22 02:26 spider venom Allergy Swelling Verified 12/16/22 02:26 Sulfa (Sulfonamide Allergy Anaphylaxis Verified 12/16/22 02:26 Antibiotics) venom-wasp Allergy Swelling Verified 12/16/22 02:26 venom-wasp protein Allergy Swelling Verified 12/16/22 02:26 promethazine HCl AdvReac Severe Nausea & Verified 12/16/22 02:26 [From Phenergan] Vomiting amoxicillin AdvReac Nausea & Verified 12/16/22 02:26 Vomiting ANTS AdvReac Mild Anaphylaxis Uncoded 12/16/22 02:26 Review of Systems ROS Statement: Those systems with pertinent positive or pertinent negative responses have been documented in the HPI. ROS Other: All systems not noted in ROS Statement are negative. Past Medical History Past Medical History: Asthma, Diabetes Mellitus, GERD/Reflux Additional Past Medical History / Comment(s): migraines, degenerative disk disease, endometriosis, lupus, pancreatitis, DM2- insulin, gastroparesis History of Any Multi-Drug Resistant Organisms: None Reported Past Surgical History: Cholecystectomy, Orthopedic Surgery Additional Past Surgical History / Comment(s): laparoscopc surgery for endometriosis, cyst removed from left foot, EGD, Past Anesthesia/Blood Transfusion Reactions: Previous Problems w/ Anesthesia Additional Past Anesthesia/Blood Transfusion Reaction / Comment(s): hard to wake up for 48-72 hours after laparoscopic surgery-was in hosp. for 3 days Past Psychological History: Anxiety, Depression, PTSD Smoking Status: Former smoker, Vaper Past Alcohol Use History: None Reported Past Drug Use History: Marijuana - Past Family History Mother Family Medical History: Cancer Additional Family Medical History / Comment(s): Migraines, pancreatic cancer, . Father Family Medical History: Coronary Artery Disease (CAD), Hypertension Additional Family Medical History / Comment(s): ddd, alcoholism & drug use General Exam Limitations: no limitations General appearance: alert, in no apparent distress Head exam: Present: atraumatic, normocephalic, normal inspection Eye exam: Present: normal appearance, PERRL, EOMI. Absent: scleral icterus, conjunctival injection, periorbital swelling ENT exam: Present: normal exam, mucous membranes moist Neck exam: Present: normal inspection. Absent: tenderness, meningismus, lymphadenopathy Respiratory exam: Present: normal lung sounds bilaterally. Absent: respiratory distress, wheezes, rales, rhonchi, stridor Cardiovascular Exam: Present: regular rate, normal rhythm, normal heart sounds. Absent: systolic murmur, diastolic murmur, rubs, gallop, clicks GI/Abdominal exam: Present: soft, normal bowel sounds. Absent: distended, tenderness, guarding, rebound, rigid Extremities exam: Present: normal inspection, full ROM, normal capillary refill. Absent: tenderness, pedal edema, joint swelling, calf tenderness Back exam: Present: normal inspection Neurological exam: Present: alert, oriented X3, CN II-XII intact Psychiatric exam: Present: normal affect, normal mood Skin exam: Present: warm, dry, intact, normal color. Absent: rash Course Vital Signs 12/16/22 12/16/22 02:25 05:12 Temperature 97.8 F 97.8 F Pulse Rate 107 H 107 H Respiratory 20 20 Rate Blood Pressure 149/107 149/107 O2 Sat by Pulse 98 98 Oximetry - Reevaluation(s) Reevaluation #1: 12/16/22 04:45 Records reviewed Reevaluation #2: 12/16/22 04:45 Patient symptoms improved Reevaluation #3: 12/16/22 04:45 Patient informed of results questions answered Reevaluation #4: 12/16/22 04:45 Was pt. sent in by a medical professional or institution (, SADE, WOOD CABINETMAKER, urgent care, hospital, or group home...) When possible be specific @ -no Did you speak to anyone other than the patient for history (EMS, parent, family, police, friend...)? What history was obtained from this source @ -no Did you review nursing and triage notes (agree or disagree)? Why? @ -agree Are old charts reviewed (outside hosp., previous admission, EMS record, old EKG, old radiological studies, urgent care reports/EKG's, group home records)? Report findings @ -yes Differential Diagnosis (chest pain, altered mental status, abdominal pain women, abdominal pain men, vaginal bleeding, weakness, fever, dyspnea, syncope, headache, dizziness, GI bleed, back pain, seizure, CVA, palpatations, mental health, musculoskeletal)? @ -prior EKG interpreted by me (3pts min.). @ -no X-rays interpreted by me (1pt min.). @ -no CT interpreted by me (1pt min.). @ -no U/S interpreted by me (1pt. min.). @ -no What testing was considered but not performed or refused? (CT, X-rays, U/S, labs)? Why? @ -none What meds were considered but not given or refused? Why? @ -none Did you discuss the management of the patient with other professionals (professionals i.e. SADE López, WOOD CABINETMAKER, lab, RT, psych nurse, social worker psychiatric, marble cutter operator, teacher, medical information officer, showcase trimmer)? Give summary @ -no Was smoking cessation discussed for >3mins.? @ -no Was critical care preformed (if so, how long)? @ -no Were there social determinants of health that impacted care today? How? (Lenora elessness, low income, unemployed, alcoholism, drug addiction, transportation, low edu. Level, literacy, decrease access to med. care, [facility], rehab)? @ -none Was there de-escalation of care discussed even if they declined (Discuss DNR or withdrawal of care, Hospice)? DNR status @ -no What co-morbidities impacted this encounter? (DM, HTN, Smoking, COPD, CAD, Cancer, CVA, ARF, Chemo, Hep., AIDS, mental health diagnosis, sleep apnea, morbid obesity)? @ -none Was patient admitted / discharged? Hospital course, mention meds given and route, prescriptions, significant lab abnormalities, going to OR and other pertinent info. @ - 32 female to the emergency family today for evaluation today. Patient presents today for evaluation of abdominal pain and headache Symptoms are improved here in the ER and she will be discharged home Discharge Undiagnosed new problem with uncertain prognosis? @ -no Drug Therapy requiring intensive monitoring for toxicity (Heparin, Nitro, Insulin, Cardizem)? @ -no Were any procedures done? @ -no Diagnosis/symptom? @ -Abdominal pain, chronic pain Acute, or Chronic, or Acute on Chronic? @ -Acute Uncomplicated (without systemic symptoms) or Complicated (systemic symptoms)? @ -Complicated Side effects of treatment? @ -no Exacerbation, Progression, or Severe Exacerbation? @ -exacerbation Poses a threat to life or bodily function? How? (Chest pain, [place], [place], pneumonia, PE, COPD, DKA, ARF, appy, cholecystitis, CVA, Diverticulitis, Homicidal, Suicidal, threat to staff... and all critical care pts) @ -no Reevaluation #5: 12/16/22 04:45 Differential Abdominal Pain Women: Appendicitis, Cholecystitis, diverticulosis, ischemic bowel, pancreatitis, hepatitis, UTI, gastroenteritis, AAA, incarcerated hernia, bowel obstruction, constipation, inflammatory bowel, hepatitis, peptic ulcer disease, splenic infarction, perforated viscus, vulvitis, ovarian torsion, PID, kidney stone, placenta abruption, this is not meant to be an all-inclusive list Differential Headache: Migraine, tension, cluster, carbon monoxide, central venous thrombosis, pension karma temporal arteritis, acute closure glaucoma, intercranial hemorrhage, mastoiditis, sinusitis, head injury, this is not meant to be an all-inclusive list. Medical Decision Making - Medical Decision Making 32 female to the emergency family today for evaluation today. Patient presents today for evaluation of abdominal pain and headache Symptoms are improved here in the ER and she will be discharged home Disposition Clinical Impression: Depression, Nausea & vomiting, Migraine headache, Chronic abdominal pain Disposition: HOME SELF-CARE Condition: Fair Instructions (If sedation given, give patient instructions): Acute Headache (ED), Abdominal Pain (ED) Is patient prescribed a controlled substance at d/c from ED?: No Referrals: Isi Carolina MD [Primary Care Provider] - 1-2 days Time of Disposition: 04:45
== END 2022-12-16 05:16 | disposition home or self-care (01) ==
LOC: EC 01:30
DX: G89.29 Other chronic pain (principal); R10.9 Unspecified abdominal pain; G43.909 Migraine, unspecified, not intractable, without status migrainosus; R11.2 Nausea with vomiting, unspecified; F32.A Depression, unspecified; E11.9 Type 2 diabetes mellitus without complications; K21.9 Gastro-esophageal reflux disease without esophagitis; J45.909 Unspecified asthma, uncomplicated; F41.9 Anxiety disorder, unspecified; F17.290 Nicotine dependence, other tobacco product, uncomplicated; F12.90 Cannabis use, unspecified, uncomplicated; Z88.2 Allergy status to sulfonamides; Z91.018 Allergy to other foods; Z91.040 Latex allergy status; Z91.030 Bee allergy status; Z91.038 Other insect allergy status; Z88.8 Allergy status to other drugs, medicaments and biological substances; Z88.0 Allergy status to penicillin; Z79.4 Long term (current) use of insulin; Z79.84 Long term (current) use of oral hypoglycemic drugs; Z79.899 Other long term (current) drug therapy
CPT/HCPCS: 99283; 96372; S0183; J1170

== ENCOUNTER 2022-12-25 16:40 | Emergency (ER) | payer OTHER ==
--- NOTE | 2022-12-25 18:14 | ED ---
Abdominal Pain HPI - General Source: patient Mode of arrival: ambulatory Limitations: no limitations <Greg Danielle - Last Filed: 12/25/22 18:14> <Martinez Olmos - Last Filed: 12/26/22 03:14> - General Chief Complaint: Abdominal Pain Stated Complaint: stomach pains Time Seen by Provider: 12/25/22 17:06 - History of Present Illness Initial Comments: 32-year-old female presenting to the ED with a chief complaint of abdominal pain. Patient states for the past 1-2 days has had upper abdominal pain and nausea. Also notes for the past day she has had myalgias. States that her tested positive for COVID today. Denies urinary symptoms. Denies changes in bowel habits. Denies cough, congestion, rhinorrhea. Denies chest pain shortness of breath. No other complaints. (Greg Danielle) - Related Data Home Medications Medication Instructions Recorded Confirmed Omeprazole 20 mg PO BID 11/16/21 12/10/22 Acetaminophen [Tylenol Extra 500 mg PO Q4H PRN 03/30/22 12/10/22 Strength] Insulin Aspart [NovoLOG Flexpen] See Protocol SQ TID-W/MEALS 03/30/22 12/10/22 Insulin Glargine,Hum.rec.anlog 45 units SQ DAILY 03/30/22 12/10/22 [Lantus Solostar Pen] Ondansetron Odt [Zofran ODT] 4 mg PO Q6H PRN 03/30/22 12/10/22 tiZANidine [Zanaflex] 4 mg PO BID PRN 03/30/22 12/10/22 Etonogestrel [Nexplanon] 68 mg INTRADERMA DIRECTED 06/22/22 12/10/22 Albuterol Nebulized [Ventolin 2.5 mg INHALATION RT-Q4H PRN 09/18/22 12/10/22 Nebulized] Insulin Aspart [NovoLOG Flexpen] 10 units SQ TID-W/MEALS 09/18/22 12/10/22 Lipase/Protease/Amylase [Zenpep Dr 2 cap PO TID-W/MEALS 09/18/22 12/10/22 5,000 Unit Capsule] Pioglitazone [Actos] 30 mg PO DAILY 09/18/22 12/10/22 Atorvastatin [Lipitor] 80 mg PO HS 10/27/22 12/10/22 EPINEPHrine (Auto Inject) [Epipen] 0.3 mg IM DIRECTED PRN 10/27/22 12/10/22 Fenofibrate [Lofibra] 160 mg PO DAILY 10/27/22 12/10/22 QUEtiapine FUMARATE [SEROquel] 600 mg PO HS 11/09/22 12/10/22 Fluoride (Sodium) [Sodium Fluoride 1 applic DENTAL DAILY 12/10/22 12/10/22 5000 Plus] Metoclopramide [Reglan] 5 mg PO ACHS PRN 12/10/22 12/10/22 Pantoprazole [Protonix] 40 mg PO BID 12/10/22 12/10/22 Sucralfate [Carafate] 1 gm PO BID 12/10/22 12/10/22 metFORMIN HCL 1,000 mg PO BID 12/10/22 12/10/22 sitaGLIPtin [Januvia] 100 mg PO DAILY 12/10/22 12/10/22 Previous Rx's Medication Instructions Recorded Ibuprofen [Motrin] 800 mg PO Q8HR PRN #30 tab 06/07/22 Allergies Allergy/AdvReac Type Severity Reaction Status Date / Time bee pollen Allergy Severe Anaphylaxis Verified 12/25/22 17:01 haloperidol lactate Allergy Severe QUIT Verified 12/25/22 17:01 [From Haldol] BREATHING latex Allergy Severe RASH-THROAT Verified 12/25/22 17:01 CLOSES murrieta Allergy Anaphylaxis Verified 12/25/22 17:01 coconut Allergy Anaphylaxis Verified 12/25/22 17:01 pineapple Allergy Anaphylaxis Verified 12/25/22 17:01 spider venom Allergy Swelling Verified 12/25/22 17:01 Sulfa (Sulfonamide Allergy Anaphylaxis Verified 12/25/22 17:01 Antibiotics) venom-wasp Allergy Swelling Verified 12/25/22 17:01 venom-wasp protein Allergy Swelling Verified 12/25/22 17:01 promethazine HCl AdvReac Severe Nausea & Verified 12/25/22 17:01 [From Phenergan] Vomiting amoxicillin AdvReac Nausea & Verified 12/25/22 17:01 Vomiting ANTS AdvReac Mild Anaphylaxis Uncoded 12/25/22 17:01 Review of Systems ROS Other: All systems not noted in ROS Statement are negative. <Greg Danielle - Last Filed: 12/25/22 18:14> ROS Other: All systems not noted in ROS Statement are negative. <Mratinez Olmos - Last Filed: 12/26/22 03:14> ROS Statement: Those systems with pertinent positive or pertinent negative responses have been documented in the HPI. Past Medical History Past Medical History: Asthma, Diabetes Mellitus, GERD/Reflux Additional Past Medical History / Comment(s): migraines, degenerative disk disease, endometriosis, lupus, pancreatitis, DM2- insulin, gastroparesis History of Any Multi-Drug Resistant Organisms: None Reported Past Surgical History: Cholecystectomy, Orthopedic Surgery Additional Past Surgical History / Comment(s): laparoscopc surgery for endometriosis, cyst removed from left foot, EGD, Past Anesthesia/Blood Transfusion Reactions: Previous Problems w/ Anesthesia Additional Past Anesthesia/Blood Transfusion Reaction / Comment(s): hard to wake up for 48-72 hours after laparoscopic surgery-was in hosp. for 3 days Past Psychological History: Anxiety, Depression, PTSD Smoking Status: Former smoker, Vaper Past Alcohol Use History: None Reported Past Drug Use History: Marijuana - Past Family History Mother Family Medical History: Cancer Additional Family Medical History / Comment(s): Migraines, pancreatic cancer, . Father Family Medical History: Coronary Artery Disease (CAD), Hypertension Additional Family Medical History / Comment(s): ddd, alcoholism & drug use <Greg Danielle - Last Filed: 12/25/22 18:14> General Exam Limitations: no limitations General appearance: alert, in no apparent distress Eye exam: Present: normal appearance Neck exam: Present: normal inspection Respiratory exam: Present: normal lung sounds bilaterally Cardiovascular Exam: Present: normal rhythm, tachycardia GI/Abdominal exam: Present: soft (Diffuse upper abdominal tenderness to palpation. No rebound guarding or rigidity.) Extremities exam: Present: normal inspection Back exam: Present: normal inspection Neurological exam: Present: alert, oriented X3 Skin exam: Present: warm, dry <LolisGreg - Last Filed: 12/25/22 18:14> Limitations: no limitations General appearance: alert, in no apparent distress Head exam: Present: atraumatic, normocephalic, normal inspection Eye exam: Present: normal appearance Neck exam: Present: normal inspection, full ROM Respiratory exam: Present: normal lung sounds bilaterally. Absent: respiratory distress, wheezes, rales, rhonchi, stridor Cardiovascular Exam: Present: regular rate, normal rhythm, normal heart sounds. Absent: systolic murmur, diastolic murmur, rubs, gallop, clicks GI/Abdominal exam: Present: soft. Absent: distended, tenderness, guarding, rebound, rigid Neurological exam: Present: alert, oriented X3, CN II-XII intact Psychiatric exam: Present: normal affect, normal mood Skin exam: Present: warm, dry, intact, normal color. Absent: rash <Martinez Olmos - Last Filed: 12/26/22 03:14> Course Vital Signs 12/25/22 12/25/22 12/25/22 16:58 21:00 22:29 Temperature 98.4 F 98.2 F Pulse Rate 117 H 108 H 96 Respiratory 20 18 18 Rate Blood Pressure 100/75 106/72 104/70 O2 Sat by Pulse 98 98 98 Oximetry Medical Decision Making <Greg Danielle - Last Filed: 12/25/22 18:14> - Lab Data Result diagrams: 12/25/22 18:25 12/25/22 18:25 <Martinez Olmos - Last Filed: 12/26/22 03:14> - Medical Decision Making Was pt. sent in by a medical professional or institution ([facility], [facility], urgent care, hospital, or long-term...) When possible be specific @ -[No] Did you speak to anyone other than the patient for history (EMS, parent, family, police, friend...)? What history was obtained from this source @ -[No] Did you review nursing and triage notes (agree or disagree)? Why? @ -[I reviewed and agree with nursing and triage notes] Were old charts reviewed (outside hosp., previous admission, EMS record, old EKG , old radiological studies, urgent care reports/EKG's, long-term records)? Report findings @ -[No old charts were reviewed] Differential Diagnosis (chest pain, altered mental status, abdominal pain women, abdominal pain men, vaginal bleeding, weakness, fever, dyspnea, syncope, headache, dizziness, GI bleed, back pain, seizure, CVA, palpatations, mental hea lth, musculoskeletal)? @ -Differential Abdominal Pain Women: Appendicitis, Cholecystitis, diverticulosis, ischemic bowel, pancreatitis, hepatitis, UTI, gastroenteritis, AAA, incarcerated hernia, bowel obstruction, constipation, inflammatory bowel, hepatitis, peptic ulcer disease, splenic infarction, perforated viscus, vulvitis, ovarian torsion, PID, kidney stone, placenta abruption, this is not meant to be an all-inclusive list EKG interpreted by me (3pts min.). @ -None X-rays interpreted by me (1pt min.). @ -[None done] CT interpreted by me (1pt min.). @ -[None done] U/S interpreted by me (1pt. min.). @ -[None done] What testing was considered but not performed or refused? (CT, X-rays, U/S, labs)? Why? @ -Imaging of the abdomen was considered however patient reports symptoms are not worse than usual. What meds were considered but not given or refused? Why? @ -[None] Did you discuss the management of the patient with other professionals (professionals i.e. , PA, [facility], lab, RT, psych nurse, adoption social worker, supervisor particleboard, teacher, title officer, case management coordinator)? Give summary @ -[No] Was smoking cessation discussed for >3mins.? @ -[No] Was critical care preformed (if so, how long)? @ -[No] Were there social determinants of health that impacted care today? How? (Homelessness, low income, unemployed, alcoholism, drug addiction, transportation, low edu. Level, literacy, decrease access to med. care, senior care, rehab)? @ -[No] Was there de-escalation of care discussed even if they declined (Discuss DNR or withdrawal of care, Hospice)? DNR status @ -[No] What co-morbidities impacted this encounter? (DM, HTN, Smoking, COPD, CAD, Cancer, CVA, ARF, Chemo, Hep., AIDS, mental health diagnosis, sleep apnea, morbid obesity)? @ -[None] Was patient admitted / discharged? Hospital course, mention meds given and route, prescriptions, significant lab abnormalities, going to OR and other pertinent info. @ -[hospital course] Undiagnosed new problem with uncertain prognosis? @ -[No] Drug Therapy requiring intensive monitoring for toxicity (Heparin, Nitro, Insulin, Cardizem)? @ -[No] Were any procedures done? @ -[No] Diagnosis/symptom? @ -[default] Acute, or Chronic, or Acute on Chronic? @ -[default] Uncomplicated (without systemic symptoms) or Complicated (systemic symptoms)? @ -[default] Side effects of treatment? @ -[No] Exacerbation, Progression, or Severe Exacerbation? @ -[No] Poses a threat to life or bodily function? How? (Chest pain, USA, NV, pneumonia, PE, COPD, DKA, ARF, appy, cholecystitis, CVA, Diverticulitis, Homicidal, Suicidal, threat to staff... and all critical care pts) @ -[No] (Greg Danielle) Was patient admitted / discharged? Hospital course, mention meds given and route, prescriptions, significant lab abnormalities, going to OR and other pertinent info. @ -I resumed the care of this patient at sign out. In short this is a 32-year-old female well known to our ER presenting with chief complaint of abdominal pain and headache. Lab work is essentially unremarkable and she is negative for influenza, RSV, and Covid. She'll be discharged home in stable c ondition. Follow-up with PCP. Report back to ER with any new or worsening symptoms. Discussed return parameters and answered all questions. Patient conveyed verbal understanding and agreed to the plan. I discussed this case in detail with my attending Dr. Jessica Herrmann new problem with uncertain prognosis? @ -[No] Drug Therapy requiring intensive monitoring for toicty (Heparin, Nitro, Insulin, Cadiem)? @ -[No] Were any procedures done? @ -[No] Diagnosis/symptom? @ -Chronic abdominal pain, headache Acute, or Chronic, or Acute on Chronic? @ -Acute on chronic Uncomplicated (without systemic symptoms) or Complicated (systemic symptoms)? @ -uncomplicated Side effects of treatment? @ -[No] Exacerbtin, Progression, or Severe Exacerbation? @ -[No] Poses a threat to life or bodily function? How? (Chest pain, USA, NV, pneumonia, PE, COPD, DKA, ARF, appy, cholecystitis, CVA, Diverticulitis, Homicidal, Suicidal, santi to staff... and all critical care pts) @ -[No] (Martinez Olmos) - Lab Data Lab Results 09/12/25/22 12/25/22 Range/Units 18:25 18:25 18:34 WBC 5.1 (3.8-10.6) k/uL RBC 3.82 (3.80-5.40) m/uL Hgb 11.5 (11.4-16.0) gm/dL Hct 34.4 (34.0-46.0) % MCV 90.2 (80.0-100.0) fL MCH 30.1 (25.0-35.0) pg MCHC 33.4 (31.0-37.0) g/dL RDW 15.3 (11.5-15.5) % Plt Count 219 (150-450) k/uL MPV 8.4 Neutrophils % 62 % Lymphocytes % 31 % Monocytes % 4 % Eosinophils % 2 % Basophils % 0 % Neutrophils # 3.2 (1.3-7.7) k/uL Lymphocytes # 1.6 (1.0-4.8) k/uL Monocytes # 0.2 (0-1.0) k/uL Eosinophils # 0.1 (0-0.7) k/uL Basophils # 0.0 (0-0.2) k/uL Sodium 136 L (137-145) mmol/L Potassium 4.5 (3.5-5.1) mmol/L Chloride 110 H (98-107) mmol/L Carbon Dioxide 16 L (22-30) mmol/L Anion Gap 10 mmol/L BUN 10 (7-17) mg/dL Creatinine 0.68 (0.52-1.04) mg/dL Est GFR (CKD-EPI)AfAm >90 (>60 ml/min/1.73 sqM) Est GFR (CKD-EPI)NonAf >90 (>60 ml/min/1.73 sqM) Glucose 145 H (74-99) mg/dL Calcium 10.1 (8.4-10.2) mg/dL Total Bilirubin 0.5 (0.2-1.3) mg/dL AST 26 (14-36) U/L ALT 25 (4-34) U/L Alkaline Phosphatase 54 (38-126) U/L Total Protein 6.4 (6.3-8.2) g/dL Albumin 3.4 L (3.5-5.0) g/dL Amylase 32 (30-110) U/L Lipase 105 (23-300) U/L Urine Color Urine Appearance (Clear) Urine pH (5.0-8.0) Ur Specific Bulger (1.001-1.035) Urine Protein (Negative) Urine Glucose (UA) (Negative) Urine Ketones (Negative) Urine Blood (Negative) Urine Nitrite (Negative) Urine Bilirubin (Negative) Urine Urobilinogen (<2.0) mg/dL Ur Leukocyte Esterase (Negative) Influenza Type A (PCR) Not Detected (Not Detectd) Influenza Type B (PCR) Not Detected (Not Detectd) RSV (PCR) Not Detected (Not Detectd) SARS-CoV-2 (PCR) Not Detected (Not Detectd) 12/25/22 Range/Units 21:39 WBC (3.8-10.6) k/uL RBC (3.80-5.40) m/uL Hgb (11.4-16.0) gm/dL Hct (34.0-46.0) % MCV (80.0-100.0) fL MCH (25.0-35.0) pg MCHC (31.0-37.0) g/dL RDW (11.5-15.5) % Plt Count (150-450) k/uL MPV Neutrophils % % Lymphocytes % % Monocytes % % Eosinophils % % Basophils % % Neutrophils # (1.3-7.7) k/uL Lymphocytes # (1.0-4.8) k/uL Monocytes # (0-1.0) k/uL Eosinophils # (0-0.7) k/uL Basophils # (0-0.2) k/uL Sodium (137-145) mmol/L Potassium (3.5-5.1) mmol/L Chloride (98-107) mmol/L Carbon Dioxide (22-30) mmol/L Anion Gap mmol/L BUN (7-17) mg/dL Creatinine (0.52-1.04) mg/dL Est GFR (CKD-EPI)AfAm (>60 ml/min/1.73 sqM) Est GFR (CKD-EPI)NonAf (>60 ml/min/1.73 sqM) Glucose (74-99) mg/dL Calcium (8.4-10.2) mg/dL Total Bilirubin (0.2-1.3) mg/dL AST (14-36) U/L ALT (4-34) U/L Alkaline Phosphatase (38-126) U/L Total Protein (6.3-8.2) g/dL Albumin (3.5-5.0) g/dL Amylase (30-110) U/L Lipase (23-300) U/L Urine Color Light Yellow Urine Appearance Clear (Clear) Urine pH 7.0 (5.0-8.0) Ur Specific Bulger 1.033 (1.001-1.035) Urine Protein Negative (Negative) Urine Glucose (UA) 4+ H (Negative) Urine Ketones 1+ H (Negative) Urine Blood Negative (Negative) Urine Nitrite Negative (Negative) Urine Bilirubin Negative (Negative) Urine Urobilinogen 3.0 (<2.0) mg/dL Ur Leukocyte Esterase Negative (Negative) Influenza Type A (PCR) (Not Detectd) Influenza Type B (PCR) (Not Detectd) RSV (PCR) (Not Detectd) SARS-CoV-2 (PCR) (Not Detectd) Disposition <Greg Danielle - Last Filed: 12/25/22 18:14> Is patient prescribed a controlled substance at d/c from ED?: No Time of Disposition: 22:19 <Martinez Olmos - Last Filed: 12/26/22 03:14> Clinical Impression: Chronic abdominal pain Disposition: HOME SELF-CARE Condition: Good Instructions (If sedation given, give patient instructions): Abdominal Pain (ED) Additional Instructions: Follow-up with PCP. Report back to ER with any new or worsening symptoms. Referrals: Isi Carolina MD [Primary Care Provider] - 1-2 days
[2022-12-25] MEDS ORDERED: KETOROLAC 15 MG/ML 1 ML VIAL IVP STA (18:16)
[2022-12-25] MEDS ORDERED: SODIUM CHLORIDE 0.9% 1,000 ML IV STA (18:16)
[2022-12-25 18:33] LABS: Basophils % (A) 0 %; Eosinophils # (A) 0.1 k/uL (0-0.7); Eosinophils % (A) 2 %; HCT 34.4 % (34.0-46.0); HGB 11.5 gm/dL (11.4-16.0); Lymphocytes # (A) 1.6 k/uL (1.0-4.8); Lymphocytes % (A) 31 %; MCH 30.1 pg (25.0-35.0); MCHC 33.4 g/dL (31.0-37.0); MCV 90.2 fL (80.0-100.0); Mean Platelet Volume 8.4; Monocytes # (A) 0.2 k/uL (0-1.0); Monocytes % (A) 4 %; Neutrophils # (A) 3.2 k/uL (1.3-7.7); Neutrophils % (A) 62 %; Platelet Count 219 k/uL (150-450); RBC 3.82 m/uL (3.80-5.40); RDW 15.3 % (11.5-15.5); WBC 5.1 k/uL (3.8-10.6)
[2022-12-25 19:10] LABS: ALT 25 U/L (4-34); AST 26 U/L (14-36); African American GFR (CKD) >90 (>60 ml/min/1.73 sqM); Albumin 3.4 g/dL (3.5-5.0); Alkaline Phosphatase 54 U/L (38-126); Amylase 32 U/L (30-110); Anion Gap 10 mmol/L; Blood Urea Nitrogen 10 mg/dL (7-17); Calcium 10.1 mg/dL (8.4-10.2); Carbon Dioxide 16 mmol/L (22-30); Chloride 110 mmol/L (98-107); Glucose 145 mg/dL (74-99); Lipase 105 U/L (23-300); Non-African American GFR(CKD) >90 (>60 ml/min/1.73 sqM); Potassium 4.5 mmol/L (3.5-5.1); Sodium 136 mmol/L (137-145); Total Bilirubin 0.5 mg/dL (0.2-1.3); Total Protein 6.4 g/dL (6.3-8.2)
[2022-12-25] MEDS ORDERED: ONDANSETRON 4 MG/2 ML VIAL IM STA (19:26)
[2022-12-25] MEDS ORDERED: KETOROLAC 15 MG/ML 1 ML VIAL IM SCH (19:30)
[2022-12-25] MEDS ORDERED: PROCHLORPERAZINE INJ 10 MG/2 ML VIAL IM STA (20:59)
[2022-12-25] MEDS ORDERED: KETOROLAC 15 MG/ML 1 ML VIAL IM STA (20:59)
[2022-12-25 21:16] VITALS: RESP 18
[2022-12-25 22:13] LABS: Appearance,Urine Clear (Clear); Bilirubin,Urine Negative (Negative); Blood,Urine Negative (Negative); Color,Urine Light Yellow; Glucose,Urine (UA) 4+ (Negative); Ketones,Urine 1+ (Negative); Leukocyte Esterase,Urine Negative (Negative); Nitrite,Urine Negative (Negative); Protein,Urine Negative (Negative); Specific Gravity,Urine 1.033 (1.001-1.035)
[2022-12-25 22:31] VITALS: BP 104/70; PULSE 96; TEMP 98.2
== END 2022-12-25 22:30 | disposition home or self-care (01) ==
LOC: EC 16:40
DX: G89.29 Other chronic pain (principal); R10.10 Upper abdominal pain, unspecified; E11.9 Type 2 diabetes mellitus without complications; F32.A Depression, unspecified; K21.9 Gastro-esophageal reflux disease without esophagitis; Z79.4 Long term (current) use of insulin; Z79.84 Long term (current) use of oral hypoglycemic drugs; Z79.899 Other long term (current) drug therapy; Z87.891 Personal history of nicotine dependence; Z88.0 Allergy status to penicillin; Z88.1 Allergy status to other antibiotic agents; Z88.2 Allergy status to sulfonamides; Z88.8 Allergy status to other drugs, medicaments and biological substances; Z91.030 Bee allergy status; Z91.040 Latex allergy status; Z90.49 Acquired absence of other specified parts of digestive tract; Z20.822 Contact with and (suspected) exposure to COVID-19
CPT/HCPCS: 36415; 80053; 82150; 83690; 85025; 81003; 87636; 99284; 96372 ×5; J0780; J2405; J1885

== ENCOUNTER 2022-12-29 17:23 | Emergency (ER) | payer OTHER ==
[2022-12-29 17:50] VITALS: RESP 18
[2022-12-29] MEDS ORDERED: KETOROLAC 15 MG/ML 1 ML VIAL IM STA (18:44)
[2022-12-29] MEDS ORDERED: diphenhydrAMINE 50 MG/ML 1 ML VIAL IM STA (18:44)
[2022-12-29] MEDS ORDERED: ONDANSETRON ODT 4 MG TAB PO STA (18:44)
--- NOTE | 2022-12-29 18:46 | ED ---
General Adult HPI - General Chief complaint: Headache Stated complaint: headache Time Seen by Provider: 12/29/22 18:02 Source: patient, RN notes reviewed Mode of arrival: ambulatory - History of Present Illness Initial comments: 32-year-old male presents emergency department chief complaint of migraine headache. She states that this headache is typical of her migraines. She has taken a neurtec and Tylenol for this headache which did not help. She also admits to some abdominal pain which is chronic in nature with associated nausea. She denies fever, chills. - Related Data Home Medications Medication Instructions Recorded Confirmed Omeprazole 20 mg PO BID 11/16/21 12/10/22 Acetaminophen [Tylenol Extra 500 mg PO Q4H PRN 03/30/22 12/10/22 Strength] Insulin Aspart [NovoLOG Flexpen] See Protocol SQ TID-W/MEALS 03/30/22 12/10/22 Insulin Glargine,Hum.rec.anlog 45 units SQ DAILY 03/30/22 12/10/22 [Lantus Solostar Pen] Ondansetron Odt [Zofran ODT] 4 mg PO Q6H PRN 03/30/22 12/10/22 tiZANidine [Zanaflex] 4 mg PO BID PRN 03/30/22 12/10/22 Etonogestrel [Nexplanon] 68 mg INTRADERMA DIRECTED 06/22/22 12/10/22 Albuterol Nebulized [Ventolin 2.5 mg INHALATION RT-Q4H PRN 09/18/22 12/10/22 Nebulized] Insulin Aspart [NovoLOG Flexpen] 10 units SQ TID-W/MEALS 09/18/22 12/10/22 Lipase/Protease/Amylase [Zenpep Dr 2 cap PO TID-W/MEALS 09/18/22 12/10/22 5,000 Unit Capsule] Pioglitazone [Actos] 30 mg PO DAILY 09/18/22 12/10/22 Atorvastatin [Lipitor] 80 mg PO HS 10/27/22 12/10/22 EPINEPHrine (Auto Inject) [Epipen] 0.3 mg IM DIRECTED PRN 10/27/22 12/10/22 Fenofibrate [Lofibra] 160 mg PO DAILY 10/27/22 12/10/22 QUEtiapine FUMARATE [SEROquel] 600 mg PO HS 11/09/22 12/10/22 Fluoride (Sodium) [Sodium Fluoride 1 applic DENTAL DAILY 12/10/22 12/10/22 5000 Plus] Metoclopramide [Reglan] 5 mg PO ACHS PRN 12/10/22 12/10/22 Pantoprazole [Protonix] 40 mg PO BID 12/10/22 12/10/22 Sucralfate [Carafate] 1 gm PO BID 12/10/22 12/10/22 metFORMIN HCL 1,000 mg PO BID 12/10/22 12/10/22 sitaGLIPtin [Januvia] 100 mg PO DAILY 12/10/22 12/10/22 Previous Rx's Medication Instructions Recorded Ibuprofen [Motrin] 800 mg PO Q8HR PRN #30 tab 06/07/22 Allergies Allergy/AdvReac Type Severity Reaction Status Date / Time bee pollen Allergy Severe Anaphylaxis Verified 12/25/22 17:01 haloperidol lactate Allergy Severe QUIT Verified 12/29/22 17:48 [From Haldol] BREATHING latex Allergy Severe RASH-THROAT Verified 12/29/22 17:48 CLOSES murrieta Allergy Anaphylaxis Verified 12/29/22 17:48 coconut Allergy Anaphylaxis Verified 12/29/22 17:48 pineapple Allergy Anaphylaxis Verified 12/29/22 17:48 spider venom Allergy Swelling Verified 12/29/22 17:48 Sulfa (Sulfonamide Allergy Anaphylaxis Verified 12/29/22 17:48 Antibiotics) venom-wasp Allergy Swelling Verified 12/29/22 17:48 venom-wasp protein Allergy Swelling Verified 12/29/22 17:48 promethazine HCl AdvReac Severe Nausea & Verified 12/29/22 17:48 [From Phenergan] Vomiting amoxicillin AdvReac Nausea & Verified 12/29/22 17:48 Vomiting ANTS AdvReac Mild Anaphylaxis Uncoded 12/29/22 17:48 Review of Systems ROS Statement: Those systems with pertinent positive or pertinent negative responses have been documented in the HPI. ROS Other: All systems not noted in ROS Statement are negative. Past Medical History Past Medical History: Asthma, Diabetes Mellitus, GERD/Reflux Additional Past Medical History / Comment(s): migraines, degenerative disk disease, endometriosis, lupus, pancreatitis, DM2- insulin, gastroparesis History of Any Multi-Drug Resistant Organisms: None Reported Past Surgical History: Cholecystectomy, Orthopedic Surgery Additional Past Surgical History / Comment(s): laparoscopc surgery for endometriosis, cyst removed from left foot, EGD, Past Anesthesia/Blood Transfusion Reactions: Previous Problems w/ Anesthesia Additional Past Anesthesia/Blood Transfusion Reaction / Comment(s): hard to wake up for 48-72 hours after laparoscopic surgery-was in hosp. for 3 days Past Psychological History: Anxiety, Depression, PTSD Smoking Status: Former smoker, Vaper Past Alcohol Use History: None Reported Past Drug Use History: Marijuana - Past Family History Mother Family Medical History: Cancer Additional Family Medical History / Comment(s): Migraines, pancreatic cancer, . Father Family Medical History: Coronary Artery Disease (CAD), Hypertension Additional Family Medical History / Comment(s): ddd, alcoholism & drug use General Exam Limitations: no limitations General appearance: alert, in no apparent distress Head exam: Present: atraumatic, normocephalic, normal inspection Eye exam: Present: normal appearance, PERRL, EOMI. Absent: scleral icterus, conjunctival injection, periorbital swelling ENT exam: Present: normal exam, mucous membranes moist Neck exam: Present: normal inspection. Absent: tenderness, meningismus, lymphadenopathy Respiratory exam: Present: normal lung sounds bilaterally. Absent: respiratory distress, wheezes, rales, rhonchi, stridor Cardiovascular Exam: Present: regular rate, normal rhythm, normal heart sounds. Absent: systolic murmur, diastolic murmur, rubs, gallop, clicks GI/Abdominal exam: Present: soft, normal bowel sounds. Absent: distended, tenderness, guarding, rebound, rigid Extremities exam: Present: normal inspection, full ROM, normal capillary refill. Absent: tenderness, pedal edema, joint swelling, calf tenderness Back exam: Present: normal inspection Neurological exam: Present: alert, oriented X3, CN II-XII intact Psychiatric exam: Present: normal affect, normal mood Skin exam: Present: warm, dry, intact, normal color. Absent: rash Course Vital Signs 12/29/22 12/29/22 17:44 20:01 Temperature 98.3 F 98.9 F Pulse Rate 99 97 Respiratory 18 18 Rate Blood Pressure 120/86 112/78 O2 Sat by Pulse 98 97 Oximetry Medical Decision Making - Medical Decision Making Was pt. sent in by a medical professional or institution (, PA, NON CLINICAL ADVISOR, urgent care, hospital, or fdc...) When possible be specific @ -No Did you speak to anyone other than the patient for history (EMS, parent, family, police, friend...)? What history was obtained from this source @ -No Did you review nursing and triage notes (agree or disagree)? Why? @ -I reviewed and agree with nursing and triage notes Were old charts reviewed (outside hosp., previous admission, EMS record, old EKG, old radiological studies, urgent care reports/EKG's, fdc records)? Report findings @ -No old charts were reviewed Differential Diagnosis (chest pain, altered mental status, abdominal pain women, abdominal pain men, vaginal bleeding, weakness, fever, dyspnea, syncope, headache, dizziness, GI bleed, back pain, seizure, CVA, palpatations, mental health, musculoskeletal)? @ -Differential Headache: Migraine, tension, cluster, carbon monoxide, central venous thrombosis, pension karma temporal arteritis, acute closure glaucoma, intercranial hemorrhage, mastoiditis, sinusitis, head injury, this is not meant to be an all-inclusive list. EKG interpreted by me (3pts min.). @ -None X-rays interpreted by me (1pt min.). @ -None done CT interpreted by me (1pt min.). @ -None done U/S interpreted by me (1pt. min.). @ -None done What testing was considered but not performed or refused? (CT, X-rays, U/S, labs)? Why? @ -None What meds were considered but not given or refused? Why? @ -None Did you discuss the management of the patient with other professionals (professionals i.e. , PA, NON CLINICAL ADVISOR, lab, RT, psych nurse, manager social services, leather stripping machine operator, teacher, penal officer, case repairer)? Give summary @ -No Was smoking cessation discussed for >3mins.? @ -No Was critical care preformed (if so, how long)? @ -No Were there social determinants of health that impacted care today? How? (Homelessness, low income, unemployed, alcoholism, drug addiction, transportation, low edu. Level, literacy, decrease access to med. care, senior living, rehab)? @ -No Was there de-escalation of care discussed even if they declined (Discuss DNR or withdrawal of care, Hospice)? DNR status @ -No What co-morbidities impacted this encounter? (DM, HTN, Smoking, COPD, CAD, Cancer, CVA, ARF, Chemo, Hep., AIDS, mental health diagnosis, sleep apnea, morbid obesity)? @ -None Was patient admitted / discharged? Hospital course, mention meds given and route, prescriptions, significant lab abnormalities, going to OR and other pertinent info. @ -Discharged. Patient presented to emergency department chief complaint of migraine headache which is typical for the patient. She takes neurtec home did not improve her symptoms today. He also admits to some associated nausea. Patient given IM Toradol, Benadryl and Zofran which improved her symptoms. Patient stable at time of discharge. Case discussed with Dr. Vasquez Undiagnosed new problem with uncertain prognosis? @ -No Drug Therapy requiring intensive monitoring for toxicity (Heparin, Nitro, Insulin, Cardizem)? @ -No Were any procedures done? @ -No Diagnosis/symptom? @ -Migraine headache Acute, or Chronic, or Acute on Chronic? @ -acute Uncomplicated (without systemic symptoms) or Complicated (systemic symptoms)? @ -Uncomplicated Side effects of treatment? @ -No Exacerbation, Progression, or Severe Exacerbation? @ -No Poses a threat to life or bodily function? How? (Chest pain, [place], [place], pneumonia, PE, COPD, DKA, ARF, appy, cholecystitis, CVA, Diverticulitis, Homicidal, Suicidal, threat to staff... and all critical care pts) @ -No Disposition Clinical Impression: Migraine Disposition: HOME SELF-CARE Condition: Stable Instructions (If sedation given, give patient instructions): Acute Headache (ED) Additional Instructions: Please follow up with your primary care provider. Return to the emergency department for new or worsening symptoms. Is patient prescribed a controlled substance at d/c from ED?: No Referrals: Isi Carolina MD [Primary Care Provider] - 1-2 days
[2022-12-29 20:03] VITALS: BP 112/78; PULSE 97; TEMP 98.9
== END 2022-12-29 20:01 | disposition home or self-care (01) ==
LOC: EC 17:23
DX: G43.909 Migraine, unspecified, not intractable, without status migrainosus (principal); E11.43 Type 2 diabetes mellitus with diabetic autonomic (poly)neuropathy; K31.84 Gastroparesis; J45.909 Unspecified asthma, uncomplicated; K21.9 Gastro-esophageal reflux disease without esophagitis; F32.A Depression, unspecified; F41.9 Anxiety disorder, unspecified; F17.290 Nicotine dependence, other tobacco product, uncomplicated; F12.90 Cannabis use, unspecified, uncomplicated; Z90.49 Acquired absence of other specified parts of digestive tract; Z79.4 Long term (current) use of insulin; Z79.84 Long term (current) use of oral hypoglycemic drugs; Z79.899 Other long term (current) drug therapy; Z88.0 Allergy status to penicillin; Z88.2 Allergy status to sulfonamides; Z88.8 Allergy status to other drugs, medicaments and biological substances; Z91.040 Latex allergy status; Z91.018 Allergy to other foods; Z91.030 Bee allergy status; Z91.038 Other insect allergy status; Z91.09 Other allergy status, other than to drugs and biological substances
CPT/HCPCS: 99283; 96372 ×2; J1200; J1885

== ENCOUNTER 2023-01-04 15:56 | Emergency (ER) | payer OTHER ==
[2023-01-04 16:29] VITALS: RESP 18; TEMP 97.6
[2023-01-04] MEDS ORDERED: HYDROmorphone 1 MG/ML 1 ML SYRINGE IM STA (17:06)
[2023-01-04] MEDS ORDERED: diphenhydrAMINE 50 MG CAP PO STA (17:06)
--- NOTE | 2023-01-04 17:07 | ED ---
Recheck HPI - General Chief Complaint: Abdominal Pain Stated Complaint: L foot injury Time Seen by Provider: 01/04/23 16:30 Source: patient, RN notes reviewed, old records reviewed Mode of arrival: ambulatory Limitations: no limitations - History of Present Illness Initial Comments: This is a 32-year-old female well-known to this hospital coming in for abdominal pain left foot pain. Patient has history of chronic abdominal pain and migraine which she currently has admits to both main complaint today is left foot pain and injury which occurred on Wednesday. Patient has had some difficulty walking and bearing weight on the left ankle left leg left foot due to pain. No other complaints MD Complaint: other (Left foot pain with chronic migraine and abdominal pain) -: days(s) Returns Today for: persistent/worsening pain related to initial visit Symptoms Since Prior Visit: worsening pain Context: ran out of medication Treatments Prior to Arrival: Given Pain Meds on - Related Data Home Medications Medication Instructions Recorded Confirmed Omeprazole 20 mg PO BID 11/16/21 12/10/22 Acetaminophen [Tylenol Extra 500 mg PO Q4H PRN 03/30/22 12/10/22 Strength] Insulin Aspart [NovoLOG Flexpen] See Protocol SQ TID-W/MEALS 03/30/22 12/10/22 Insulin Glargine,Hum.rec.anlog 45 units SQ DAILY 03/30/22 12/10/22 [Lantus Solostar Pen] Ondansetron Odt [Zofran ODT] 4 mg PO Q6H PRN 03/30/22 12/10/22 tiZANidine [Zanaflex] 4 mg PO BID PRN 03/30/22 12/10/22 Etonogestrel [Nexplanon] 68 mg INTRADERMA DIRECTED 06/22/22 12/10/22 Albuterol Nebulized [Ventolin 2.5 mg INHALATION RT-Q4H PRN 09/18/22 12/10/22 Nebulized] Insulin Aspart [NovoLOG Flexpen] 10 units SQ TID-W/MEALS 09/18/22 12/10/22 Lipase/Protease/Amylase [Zenpep Dr 2 cap PO TID-W/MEALS 09/18/22 12/10/22 5,000 Unit Capsule] Pioglitazone [Actos] 30 mg PO DAILY 09/18/22 12/10/22 Atorvastatin [Lipitor] 80 mg PO HS 10/27/22 12/10/22 EPINEPHrine (Auto Inject) [Epipen] 0.3 mg IM DIRECTED PRN 10/27/22 12/10/22 Fenofibrate [Lofibra] 160 mg PO DAILY 10/27/22 12/10/22 QUEtiapine FUMARATE [SEROquel] 600 mg PO HS 11/09/22 12/10/22 Fluoride (Sodium) [Sodium Fluoride 1 applic DENTAL DAILY 12/10/22 12/10/22 5000 Plus] Metoclopramide [Reglan] 5 mg PO ACHS PRN 12/10/22 12/10/22 Pantoprazole [Protonix] 40 mg PO BID 12/10/22 12/10/22 Sucralfate [Carafate] 1 gm PO BID 12/10/22 12/10/22 metFORMIN HCL 1,000 mg PO BID 12/10/22 12/10/22 sitaGLIPtin [Januvia] 100 mg PO DAILY 12/10/22 12/10/22 Previous Rx's Medication Instructions Recorded Ibuprofen [Motrin] 800 mg PO Q8HR PRN #30 tab 06/07/22 Allergies Allergy/AdvReac Type Severity Reaction Status Date / Time bee pollen Allergy Severe Anaphylaxis Verified 01/07/23 11:50 haloperidol lactate Allergy Severe QUIT Verified 01/07/23 11:50 [From Haldol] BREATHING latex Allergy Severe RASH-THROAT Verified 01/07/23 11:50 CLOSES murrieta Allergy Anaphylaxis Verified 01/07/23 11:50 coconut Allergy Anaphylaxis Verified 01/07/23 11:50 pineapple Allergy Anaphylaxis Verified 01/07/23 11:50 spider venom Allergy Swelling Verified 01/07/23 11:50 Sulfa (Sulfonamide Allergy Anaphylaxis Verified 01/07/23 11:50 Antibiotics) venom-wasp Allergy Swelling Verified 01/07/23 11:50 venom-wasp protein Allergy Swelling Verified 01/07/23 11:50 promethazine HCl AdvReac Severe Nausea & Verified 01/07/23 11:50 [From Phenergan] Vomiting amoxicillin AdvReac Nausea & Verified 01/07/23 11:50 Vomiting ANTS AdvReac Mild Anaphylaxis Uncoded 01/07/23 11:50 Review of Systems ROS Statement: Those systems with pertinent positive or pertinent negative responses have been documented in the HPI. ROS Other: All systems not noted in ROS Statement are negative. Past Medical History Past Medical History: Asthma, Diabetes Mellitus, GERD/Reflux Additional Past Medical History / Comment(s): migraines, degenerative disk disease, endometriosis, lupus, pancreatitis, DM2- insulin, gastroparesis History of Any Multi-Drug Resistant Organisms: None Reported Past Surgical History: Cholecystectomy, Orthopedic Surgery Additional Past Surgical History / Comment(s): laparoscopc surgery for endometriosis, cyst removed from left foot, EGD, Past Anesthesia/Blood Transfusion Reactions: Previous Problems w/ Anesthesia Additional Past Anesthesia/Blood Transfusion Reaction / Comment(s): hard to wake up for 48-72 hours after laparoscopic surgery-was in hosp. for 3 days Past Psychological History: Anxiety, Depression, PTSD Smoking Status: Former smoker, Vaper Past Alcohol Use History: None Reported Past Drug Use History: Marijuana - Past Family History Mother Family Medical History: Cancer Additional Family Medical History / Comment(s): Migraines, pancreatic cancer, . Father Family Medical History: Coronary Artery Disease (CAD), Hypertension Additional Family Medical History / Comment(s): ddd, alcoholism & drug use General Exam Limitations: no limitations General appearance: alert, in no apparent distress Head exam: Present: atraumatic, normocephalic, normal inspection Eye exam: Present: normal appearance, PERRL, EOMI. Absent: scleral icterus, conjunctival injection, periorbital swelling ENT exam: Present: normal exam, mucous membranes moist Neck exam: Present: normal inspection. Absent: tenderness, meningismus, lymphadenopathy Respiratory exam: Present: normal lung sounds bilaterally. Absent: respiratory distress, wheezes, rales, rhonchi, stridor Cardiovascular Exam: Present: regular rate, normal rhythm, normal heart sounds. Absent: systolic murmur, diastolic murmur, rubs, gallop, clicks GI/Abdominal exam: Present: soft, normal bowel sounds. Absent: distended, tenderness, guarding, rebound, rigid Extremities exam: Present: normal inspection, full ROM, normal capillary refill. Absent: tenderness, pedal edema, joint swelling, calf tenderness Back exam: Present: normal inspection Neurological exam: Present: alert, oriented X3, CN II-XII intact Psychiatric exam: Present: normal affect, normal mood Skin exam: Present: warm, dry, intact, normal color. Absent: rash Course Vital Signs 0901/04/23 01/04/23 16:23 17:28 18:05 Temperature 97.6 F Pulse Rate 96 100 93 Respiratory 18 18 18 Rate Blood Pressure 167/91 90/59 122/86 O2 Sat by Pulse 98 95 Oximetry - Reevaluation(s) Reevaluation #1: 01/04/23 18:12 Medical record is reviewed Reevaluation #2: 01/04/23 18:12 Patient symptoms improved, blood pressure is marginal for pain medication here in the ER Reevaluation #3: 01/04/23 18:12 Patient informed results questions answered Reevaluation #4: 01/04/23 18:12 Was pt. sent in by a medical professional or institution (SADE López, INTEGRITY DIRECTOR, urgent care, hospital, or skilled nursing...) When possible be specific @ -no Did you speak to anyone other than the patient for history (EMS, parent, family, police, friend...)? What history was obtained from this source @ -no Did you review nursing and triage notes (agree or disagree)? Why? @ -agree Are old charts reviewed (outside hosp., previous admission, EMS record, old EKG, old radiological studies, urgent care reports/EKG's, skilled nursing records)? Report findings @ -yes Differential Diagnosis (chest pain, altered mental status, abdominal pain women, abdominal pain men, vaginal bleeding, weakness, fever, dyspnea, syncope, headache, dizziness, GI bleed, back pain, seizure, CVA, palpatations, mental health, musculoskeletal)? @ -prior EKG interpreted by me (3pts min.). @ -no X-rays interpreted by me (1pt min.). @ -yes CT interpreted by me (1pt min.). @ -no U/S interpreted by me (1pt. min.). @ -no What testing was considered but not performed or refused? (CT, X-rays, U/S, labs)? Why? @ -none What meds were considered but not given or refused? Why? @ -none Did you discuss the management of the patient with other professionals (professionals i.e. SADE López, INTEGRITY DIRECTOR, lab, RT, psych nurse, social service assistant, liquefier, teacher, flight communications officer, nurse case management)? Give summary @ -no Was smoking cessation discussed for >3mins.? @ -no Was critical care preformed (if so, how long)? @ -no Were there social determinants of health that impacted care today? How? (Homelessness, low income, unemployed, alcoholism, drug addiction, transportation, low edu. Level, literacy, decrease access to med. care, alf, rehab)? @ -none Was there de-escalation of care discussed even if they declined (Discuss DNR or withdrawal of care, Hospice)? DNR status @ -no What co-morbidities impacted this encounter? (DM, HTN, Smoking, COPD, CAD, Cancer, CVA, ARF, Chemo, Hep., AIDS, mental health diagnosis, sleep apnea, morbid obesity)? @ -none Was patient admitted / discharged? Hospital course, mention meds given and route, prescriptions, significant lab abnormalities, going to OR and other pertinent info. @ - 32 female to the emergency department for evaluation today. Patient Dese for evaluation regards to left foot pain abdominal pain with migraine headache. Symptoms improved here in the interaction negative patient can be discharged home Discharge Undiagnosed new problem with uncertain prognosis? @ -no Drug Therapy requiring intensive monitoring for toxicity (Heparin, Nitro, Insulin, Cardizem)? @ -no Were any procedures done? @ -no Diagnosis/symptom? @ -Chronic pain Acute, or Chronic, or Acute on Chronic? @ -Acute Uncomplicated (without systemic symptoms) or Complicated (systemic symptoms)? @ -Complicated Side effects of treatment? @ -no Exacerbation, Progression, or Severe Exacerbation? @ -exacerbation Poses a threat to life or bodily function? How? (Chest pain, [place], [place], pneumonia, PE, COPD, DKA, ARF, appy, cholecystitis, CVA, Diverticulitis, Homicidal, Suicidal, threat to staff... and all critical care pts) @ -no Medical Decision Making - Medical Decision Making 32 female to the emergency department for evaluation today. Patient Dese for evaluation regards to left foot pain abdominal pain with migraine headache. Symptoms improved here in the interaction negative patient can be discharged home - Radiology Data Radiology results: report reviewed (X-ray left foot negative for fracture), image reviewed Disposition Clinical Impression: Migraine headache, Chronic abdominal pain, Left foot pain Disposition: HOME SELF-CARE Condition: Fair Instructions (If sedation given, give patient instructions): Foot Contusion (ED) Is patient prescribed a controlled substance at d/c from ED?: No Referrals: Sunilkumar,Mini, MD [Primary Care Provider] - 1-2 days Time of Disposition: 18:10
[2023-01-04] MEDS ORDERED: PROCHLORPERAZINE 5 MG TAB PO STA (17:08)
--- NOTE | 2023-01-04 17:49 | XR ---
EXAMINATION TYPE: XR foot complete LT DATE OF EXAM: 01/04/2023 5:32 PM CLINICAL INDICATION:Female, 32 years old with history of pain; [facility] COMPARISON: None TECHNIQUE: The left foot was examined in the AP, oblique, and lateral projections. FINDINGS: No evidence of any acute osseous pathology. Joints are preserved. Bipartite medial sesamoid of the first metatarsophalangeal joint. Stress colon near the cuboid. Minimal calcaneal plantar spurring. So ft tissue swelling of the dorsal foot. IMPRESSION: Soft tissue swelling over the dorsal foot. No evidence of fracture.
[2023-01-04 18:13] VITALS: BP 122/86; PULSE 93
== END 2023-01-04 18:48 | disposition home or self-care (01) ==
LOC: EC 15:56
DX: G43.909 Migraine, unspecified, not intractable, without status migrainosus (principal); G89.29 Other chronic pain; R10.9 Unspecified abdominal pain; M79.672 Pain in left foot; K21.9 Gastro-esophageal reflux disease without esophagitis; E11.9 Type 2 diabetes mellitus without complications; F41.9 Anxiety disorder, unspecified; F32.A Depression, unspecified; F17.290 Nicotine dependence, other tobacco product, uncomplicated; F12.90 Cannabis use, unspecified, uncomplicated; Z91.040 Latex allergy status; Z91.030 Bee allergy status; Z88.8 Allergy status to other drugs, medicaments and biological substances; Z88.2 Allergy status to sulfonamides; Z88.0 Allergy status to penicillin; Z91.018 Allergy to other foods; Z91.038 Other insect allergy status; Z90.49 Acquired absence of other specified parts of digestive tract; Z79.4 Long term (current) use of insulin; Z79.84 Long term (current) use of oral hypoglycemic drugs; Z79.899 Other long term (current) drug therapy
CPT/HCPCS: 99284 ×2; 96372 ×2; 73630; S0183; J1170

== ENCOUNTER 2023-01-14 15:49 | Emergency (ER) | payer OTHER ==
[2023-01-14 16:37] VITALS: BP 123/85; PULSE 101; RESP 16; TEMP 98.2
--- NOTE | 2023-01-14 19:29 | US ---
EXAMINATION TYPE: US kidneys/renal and bladder DATE OF EXAM: 01/14/2023 COMPARISON: 10/19/22 CLINICAL INDICATION: Female, 32 years old with history of flank pain; Left flank pain x 1 day. Hx of renal stones EXAM MEASUREMENTS: Right Kidney: 11.8 x 5.8 x 5.0 cm Left Kidney: 11.2 x 5.6 x 6.8 cm Right Kidney: No hydronephrosis or masses seen Left Kidney: No hydronephrosis. Mildly dilated renal pelvis noted, a nonspecific finding. Bladder: wnl Bilateral Jets seen: Only the right Doppler ureteral jet seen. IMPRESSION: No definite acute process.
--- NOTE | 2023-01-14 19:33 | ED ---
General Adult HPI - General Source: patient, RN notes reviewed Mode of arrival: ambulatory Limitations: no limitations <Hortencia Patel - Last Filed: 01/14/23 21:23> <Greg Danielle - Last Filed: 01/14/23 22:20> - General Chief complaint: Abdominal Pain Stated complaint: ovarian cyst, pain Time Seen by Provider: 01/14/23 17:07 - History of Present Illness Initial comments: 32-year-old female presents emergency department chief complaint of abdominal pain that started yesterday around 2 PM. She states that the pain is in her left-sided suprapubic region and radiates to her groin. She is concerned that she has a kidney stone or ovarian cyst. She states she has had both in the past and this feels similar to both. She denies any aggravating or alleviating factors. She has had a history of pancreatitis, diabetes mellitus. She states that this pain is not consistent with the pain of her pancreatitis. She does admit to nausea with vomiting. Denies fever, chills. Patient is evaluated frequently in our emergency department for abdominal pain. (Hortencia Patel) 32-year-old female well known to the department presenting to the ED with a chief complaint of abdominal pain. Patient states today onset of lower abdominal pain. Notes history of ovarian cyst and is concerned that one might BE rupturing. Denies vaginal bleeding. No nausea, vomiting, diarrhea. No urinary symptoms. No other complaints. (Greg Danielle) - Related Data Home Medications Medication Instructions Recorded Confirmed Omeprazole 20 mg PO BID 11/16/21 12/10/22 Acetaminophen [Tylenol Extra 500 mg PO Q4H PRN 03/30/22 12/10/22 Strength] Insulin Aspart [NovoLOG Flexpen] See Protocol SQ TID-W/MEALS 03/30/22 12/10/22 Insulin Glargine,Hum.rec.anlog 45 units SQ DAILY 03/30/22 12/10/22 [Lantus Solostar Pen] Ondansetron Odt [Zofran ODT] 4 mg PO Q6H PRN 03/30/22 12/10/22 tiZANidine [Zanaflex] 4 mg PO BID PRN 03/30/22 12/10/22 Etonogestrel [Nexplanon] 68 mg INTRADERMA DIRECTED 06/22/22 12/10/22 Albuterol Nebulized [Ventolin 2.5 mg INHALATION RT-Q4H PRN 09/18/22 12/10/22 Nebulized] Insulin Aspart [NovoLOG Flexpen] 10 units SQ TID-W/MEALS 09/18/22 12/10/22 Lipase/Protease/Amylase [Zenpep Dr 2 cap PO TID-W/MEALS 09/18/22 12/10/22 5,000 Unit Capsule] Pioglitazone [Actos] 30 mg PO DAILY 09/18/22 12/10/22 Atorvastatin [Lipitor] 80 mg PO HS 10/27/22 12/10/22 EPINEPHrine (Auto Inject) [Epipen] 0.3 mg IM DIRECTED PRN 10/27/22 12/10/22 Fenofibrate [Lofibra] 160 mg PO DAILY 10/27/22 12/10/22 QUEtiapine FUMARATE [SEROquel] 600 mg PO HS 11/09/22 12/10/22 Fluoride (Sodium) [Sodium Fluoride 1 applic DENTAL DAILY 12/10/22 12/10/22 5000 Plus] Metoclopramide [Reglan] 5 mg PO ACHS PRN 12/10/22 12/10/22 Pantoprazole [Protonix] 40 mg PO BID 12/10/22 12/10/22 Sucralfate [Carafate] 1 gm PO BID 12/10/22 12/10/22 metFORMIN HCL 1,000 mg PO BID 12/10/22 12/10/22 sitaGLIPtin [Januvia] 100 mg PO DAILY 12/10/22 12/10/22 Previous Rx's Medication Instructions Recorded Ibuprofen [Motrin] 800 mg PO Q8HR PRN #30 tab 06/07/22 Allergies Allergy/AdvReac Type Severity Reaction Status Date / Time bee pollen Allergy Severe Anaphylaxis Verified 01/14/23 16:33 haloperidol lactate Allergy Severe QUIT Verified 01/14/23 16:33 [From Haldol] BREATHING latex Allergy Severe RASH-THROAT Verified 01/14/23 16:33 CLOSES [place] Allergy Anaphylaxis Verified 01/14/23 16:33 coconut Allergy Anaphylaxis Verified 01/14/23 16:33 pineapple Allergy Anaphylaxis Verified 01/14/23 16:33 spider venom Allergy Swelling Verified 01/14/23 16:33 Sulfa (Sulfonamide Allergy Anaphylaxis Verified 01/14/23 16:33 Antibiotics) venom-wasp Allergy Swelling Verified 01/14/23 16:33 venom-wasp protein Allergy Swelling Verified 01/14/23 16:33 promethazine HCl AdvReac Severe Nausea & Verified 01/14/23 16:33 [From Phenergan] Vomiting amoxicillin AdvReac Nausea & Verified 01/14/23 16:33 Vomiting ANTS AdvReac Mild Anaphylaxis Uncoded 01/14/23 16:33 Review of Systems ROS Other: All systems not noted in ROS Statement are negative. <Hortencia Patel - Last Filed: 01/14/23 21:23> ROS Other: All systems not noted in ROS Statement are negative. <Greg Danielle - Last Filed: 01/14/23 22:20> ROS Statement: Those systems with pertinent positive or pertinent negative responses have been documented in the HPI. Past Medical History Past Medical History: Asthma, Diabetes Mellitus, GERD/Reflux Additional Past Medical History / Comment(s): migraines, degenerative disk disease, endometriosis, lupus, pancreatitis, DM2- insulin, gastroparesis History of Any Multi-Drug Resistant Organisms: None Reported Past Surgical History: Cholecystectomy, Orthopedic Surgery Additional Past Surgical History / Comment(s): laparoscopc surgery for endometriosis, cyst removed from left foot, EGD, Past Anesthesia/Blood Transfusion Reactions: Previous Problems w/ Anesthesia Additional Past Anesthesia/Blood Transfusion Reaction / Comment(s): hard to wake up for 48-72 hours after laparoscopic surgery-was in hosp. for 3 days Past Psychological History: Anxiety, Depression, PTSD Smoking Status: Former smoker, Vaper Past Alcohol Use History: None Reported Past Drug Use History: Marijuana - Past Family History Mother Family Medical History: Cancer Additional Family Medical History / Comment(s): Migraines, pancreatic cancer, . Father Family Medical History: Coronary Artery Disease (CAD), Hypertension Additional Family Medical History / Comment(s): ddd, alcoholism & drug use <Hortencia Patel - Last Filed: 01/14/23 21:23> General Exam Limitations: no limitations General appearance: alert, in no apparent distress Head exam: Present: atraumatic, normocephalic, normal inspection Eye exam: Present: normal appearance, PERRL, EOMI. Absent: scleral icterus, conjunctival injection, periorbital swelling ENT exam: Present: normal exam, mucous membranes moist Neck exam: Present: normal inspection. Absent: tenderness, meningismus, lymphadenopathy Respiratory exam: Present: normal lung sounds bilaterally. Absent: respiratory distress, wheezes, rales, rhonchi, stridor Cardiovascular Exam: Present: regular rate, normal rhythm, normal heart sounds. Absent: systolic murmur, diastolic murmur, rubs, gallop, clicks GI/Abdominal exam: Present: soft, normal bowel sounds. Absent: distended, tenderness, guarding, rebound, rigid Extremities exam: Present: normal inspection, full ROM, normal capillary refill. Absent: tenderness, pedal edema, joint swelling, calf tenderness Back exam: Present: normal inspection, full ROM Neurological exam: Present: alert, oriented X3 Psychiatric exam: Present: normal affect, normal mood Skin exam: Present: warm, dry, intact, normal color. Absent: rash <Hortencia Patel - Last Filed: 01/14/23 21:23> General appearance: alert, in no apparent distress Eye exam: Present: normal appearance Neck exam: Present: normal inspection Respiratory exam: Present: normal lung sounds bilaterally Cardiovascular Exam: Present: regular rate, normal rhythm GI/Abdominal exam: Present: soft (diffuse lower Abdominal tenderness to palpation. No rebound guarding or rigidity.) Back exam: Present: normal inspection Neurological exam: Present: alert, oriented X3 Skin exam: Present: warm, dry <Greg Danielle - Last Filed: 01/14/23 22:20> Course Vital Signs 01/14/23 16:34 Temperature 98.2 F Pulse Rate 101 H Respiratory 16 Rate Blood Pressure 123/85 O2 Sat by Pulse 99 Oximetry Medical Decision Making <Hortencia Patel - Last Filed: 01/14/23 21:23> <Greg Danielle - Last Filed: 01/14/23 22:20> - Medical Decision Making Was pt. sent in by a medical professional or institution (SADE López, HYDRAULIC TECHNICIAN, urgent care, hospital, or group home...) When possible be specific @ -[No] Did you speak to anyone other than the patient for history (EMS, parent, family, police, friend...)? What history was obtained from this source @ -[No] Did you review nursing and triage notes (agree or disagree)? Why? @ -[I reviewed and agree with nursing and triage notes] Were old charts reviewed (outside hosp., previous admission, EMS record, old EKG, old radiological studies, urgent care reports/EKG's, group home records)? Report findings @ -[No old charts were reviewed] Differential Diagnosis (chest pain, altered mental status, abdominal pain women, abdominal pain men, vaginal bleeding, weakness, fever, dyspnea, syncope, headache, dizziness, GI bleed, back pain, seizure, CVA, palpatations, mental health, musculoskeletal)? @ -[Differential Abdominal Pain Women: Appendicitis, Cholecystitis, diverticulosis, ischemic bowel, pancreatitis, hepatitis, UTI, gastroenteritis, AAA, incarcerated hernia, bowel obstruction, constipation, inflammatory bowel, hepatitis, peptic ulcer disease, splenic infarction, perforated viscus, vulvitis, ovarian torsion, PID, kidney stone, placenta abruption, this is not meant to be an all-inclusive list] EKG interpreted by me (3pts min.). @ -[None] X-rays interpreted by me (1pt min.). @ -[None done] CT interpreted by me (1pt min.). @ -[None done] U/S interpreted by me (1pt. min.). @ -[Kidney and bladder ultrasound shows no definitive acute process Pelvic ultrasound ] What testing was considered but not performed or refused? (CT, X-rays, U/S, labs)? Why? @ -[None] What meds were considered but not given or refused? Why? @ -[None] Did you discuss the management of the patient with other professionals (prof dannionals i.e. , PA, HYDRAULIC TECHNICIAN, lab, RT, psych nurse, mental health social worker, motor vehicle technician, teacher, budget officer, case folder)? Give summary @ -[No] Was smoking cessation discussed for >3mins.? @ -[No] Was critical care preformed (if so, how long)? @ -[No] Were there social determinants of health that impacted care today? How? (Homelessness, low income, unemployed, alcoholism, drug addiction, transportation, low edu. Level, literacy, decrease access to med. care, longterm, rehab)? @ -[No] Was there de-escalation of care discussed even if they declined (Discuss DNR or withdrawal of care, Hospice)? DNR status @ -[No] What co-morbidities impacted this encounter? (DM, HTN, Smoking, COPD, CAD, Cancer, CVA, ARF, Chemo, Hep., AIDS, mental health diagnosis, sleep apnea, morbid obesity)? @ -[None] Was patient admitted / discharged? Hospital course, mention meds given and route, prescriptions, significant lab abnormalities, going to OR and other pertinent info. @ -[Discharged. Patient presented to the emergency department with lower abdominal/suprapubic pain that started yesterday. UA obtained which shows negative leukocyte esterase, negative nitrate. Kidney and bladder ultrasound show no evidence of acute process. US pelvis shows Patient signed out to Rigoberto Shrestha PA-C pending disposition] Undiagnosed new problem with uncertain prognosis? @ -[No] Drug Therapy requiring intensive monitoring for toxicity (Heparin, Nitro, Insulin, Cardizem)? @ -[No] Were any procedures done? @ -[No] Diagnosis/symptom? @ -[abdominal pain] Acute, or Chronic, or Acute on Chronic? @ acute] Uncomplicated (without systemic symptoms) or Complicated (systemic symptoms)? @ -uncomplicated Side effects of treatment? @ -[No] Exacerbation, Progression, or Severe Exacerbation? @ -[No] Poses a threat to life or bodily function? How? (Chest pain, [place], [place], pneumonia, PE, COPD, DKA, ARF, appy, cholecystitis, CVA, Diverticulitis, Homicidal, Suicidal, threat to staff... and all critical care pts) @ -[No] (Hortencia Patel) Discharge 32-year-old female presenting to the ED with a chief complaint of abdominal pain. Patient reports she is concerned one of her cyst may be rupturing. At this time only has complaints of lower abdominal pain. No nausea, vomiting, diarrhea, urinary symptoms. Transvaginal ultrasound at this time shows no acute findings. Patient had improvement of pain with Toradol Benadryl and Tylenol. Patient discharged home in stable condition. Discussed return precautions with patient verbalizes agreement. (Greg Danielle) - Lab Data Lab Results 01/14/23 01/14/23 Range/Units 19:00 19:00 Urine Color Colorless Urine Appearance Clear (Clear) Urine pH 6.5 (5.0-8.0) Ur Specific [place] 1.038 H (1.001-1.035) Urine Protein Negative (Negative) Urine Glucose (UA) 4+ H (Negative) Urine Ketones Negative (Negative) Urine Blood Negative (Negative) Urine Nitrite Negative (Negative) Urine Bilirubin Negative (Negative) Urine Urobilinogen <2.0 (<2.0) mg/dL Ur Leukocyte Esterase Negative (Negative) Urine HCG, Qual Not Detected (Not Detectd) Disposition <Hortencia Patel - Last Filed: 01/14/23 21:23> Is patient prescribed a controlled substance at d/c from ED?: No Time of Disposition: 22:20 <Greg Danielle - Last Filed: 01/14/23 22:20> Clinical Impression: Abdominal pain Disposition: HOME SELF-CARE Condition: Good Additional Instructions: Please return to the Emergency Department if symptoms worsen or any other concerns. Referrals: Isi Carolina MD [Primary Care Provider] - 1-2 days
[2023-01-14 19:36] LABS: Appearance,Urine Clear (Clear); Bilirubin,Urine Negative (Negative); Blood,Urine Negative (Negative); Color,Urine Colorless; Glucose,Urine (UA) 4+ (Negative); Ketones,Urine Negative (Negative); Leukocyte Esterase,Urine Negative (Negative); Nitrite,Urine Negative (Negative); PH, Urine 6.5 (5.0-8.0); Protein,Urine Negative (Negative); Specific Gravity,Urine 1.038 (1.001-1.035); Urobilinogen,Urine <2.0 mg/dL (<2.0)
[2023-01-14] MEDS ORDERED: KETOROLAC 15 MG/ML 1 ML VIAL IM STA (20:20)
[2023-01-14] MEDS ORDERED: diphenhydrAMINE 50 MG/ML 1 ML VIAL IM STA (21:24)
--- NOTE | 2023-01-14 22:01 | US ---
EXAMINATION TYPE: US pelvic complete DATE OF EXAM: 01/14/2023 COMPARISON: 05/03/21. CT: 11/08/22 CLINICAL INDICATION: Female, 32 years old with history of pain; LLQ pain x 1 day. . No pelvic heather geries TECHNIQUE: Transabdominal sonographic images of the pelvis were acquired. Date of LMP: Over 1 year ago EXAM MEASUREMENTS: Uterus: 7.9 x 4.4 x 3.3 cm Endometrial Stripe: 0.6 cm Right Ovary: 2.2 x 1.8 x 1.9 cm Left Ovary: 3.7 x 2.9 x 2.1 cm 1. Uterus: Anteverted wnl 2. Endometrium: wnl 3. Right Ovary: wnl 4. Left Ovary: cystic area measuring 3.1 x 2.5 x 1.6 cm Spectral, color and waveform doppler imaging shows good arterial and venous flow within the ovaries ; there is no evidence for ovarian torsion. 5. Bilateral Adnexa: cystic area seen adjacent to right ovary measuring 1.5 x 1.4 x 1.3 cm 6. Posterior cul-de-sac: wnl IMPRESSION: Nonspecific small bilateral adnexal cysts.
[2023-01-14] MEDS ORDERED: ACETAMINOPHEN TAB 500 MG TAB PO STA (22:10)
== END 2023-01-14 22:42 | disposition home or self-care (01) ==
LOC: EC 15:49
DX: R10.32 Left lower quadrant pain (principal); E11.9 Type 2 diabetes mellitus without complications; K21.9 Gastro-esophageal reflux disease without esophagitis; J45.909 Unspecified asthma, uncomplicated; F41.9 Anxiety disorder, unspecified; F32.A Depression, unspecified; F17.290 Nicotine dependence, other tobacco product, uncomplicated; F12.90 Cannabis use, unspecified, uncomplicated; Z87.891 Personal history of nicotine dependence; Z79.4 Long term (current) use of insulin; Z79.84 Long term (current) use of oral hypoglycemic drugs; Z79.899 Other long term (current) drug therapy; Z88.0 Allergy status to penicillin; Z88.2 Allergy status to sulfonamides; Z91.030 Bee allergy status; Z91.040 Latex allergy status; Z88.8 Allergy status to other drugs, medicaments and biological substances; Z91.018 Allergy to other foods
CPT/HCPCS: 81003; 81025; 93975; 76856; 76770; 99284; 96372 ×2; J1200; J1885

== ENCOUNTER 2023-01-21 09:38 | Emergency (ER) | payer OTHER ==
[2023-01-21 09:52] VITALS: TEMP 98.7
[2023-01-21] MEDS ORDERED: diphenhydrAMINE 50 MG/ML 1 ML VIAL IM STA ×2 (09:57→11:51)
[2023-01-21] MEDS ORDERED: KETOROLAC 15 MG/ML 1 ML VIAL IM STA ×2 (09:57→11:51)
--- NOTE | 2023-01-21 10:22 | ED ---
Abdominal Pain HPI - General Chief Complaint: Abdominal Pain Stated Complaint: abd pain Time Seen by Provider: 01/21/23 09:51 Source: patient, RN notes reviewed Mode of arrival: ambulatory Limitations: no limitations - History of Present Illness Initial Comments: This is a 32 year old female who presents to the emergency department for abdominal pain and a headache. Patient is well known to this emergency department for recurrent abdominal pain related to chronic pancreatitis. Abdominal pain is in the LUQ. Denies any N/V. She started to develop a headache yesterday, and states that it is primarily on the left side of her forehead. She is currently following with the [facility] for the chronic pancreatitis, and states that she has a gastric emptying study pending at this time. MD Complaint: abdominal pain - Related Data Home Medications Medication Instructions Recorded Confirmed Omeprazole 20 mg PO BID 11/16/21 12/10/22 Acetaminophen [Tylenol Extra 500 mg PO Q4H PRN 03/30/22 12/10/22 Strength] Insulin Aspart [NovoLOG Flexpen] See Protocol SQ TID-W/MEALS 03/30/22 12/10/22 Insulin Glargine,Hum.rec.anlog 45 units SQ DAILY 03/30/22 12/10/22 [Lantus Solostar Pen] Ondansetron Odt [Zofran ODT] 4 mg PO Q6H PRN 03/30/22 12/10/22 tiZANidine [Zanaflex] 4 mg PO BID PRN 03/30/22 12/10/22 Etonogestrel [Nexplanon] 68 mg INTRADERMA DIRECTED 06/22/22 12/10/22 Albuterol Nebulized [Ventolin 2.5 mg INHALATION RT-Q4H PRN 09/18/22 12/10/22 Nebulized] Insulin Aspart [NovoLOG Flexpen] 10 units SQ TID-W/MEALS 09/18/22 12/10/22 Lipase/Protease/Amylase [Zenpep Dr 2 cap PO TID-W/MEALS 09/18/22 12/10/22 5,000 Unit Capsule] Pioglitazone [Actos] 30 mg PO DAILY 09/18/22 12/10/22 Atorvastatin [Lipitor] 80 mg PO HS 10/27/22 12/10/22 EPINEPHrine (Auto Inject) [Epipen] 0.3 mg IM DIRECTED PRN 10/27/22 12/10/22 Fenofibrate [Lofibra] 160 mg PO DAILY 10/27/22 12/10/22 QUEtiapine FUMARATE [SEROquel] 600 mg PO HS 11/09/22 12/10/22 Fluoride (Sodium) [Sodium Fluoride 1 applic DENTAL DAILY 12/10/22 12/10/22 5000 Plus] Metoclopramide [Reglan] 5 mg PO ACHS PRN 12/10/22 12/10/22 Pantoprazole [Protonix] 40 mg PO BID 12/10/22 12/10/22 Sucralfate [Carafate] 1 gm PO BID 12/10/22 12/10/22 metFORMIN HCL 1,000 mg PO BID 12/10/22 12/10/22 sitaGLIPtin [Januvia] 100 mg PO DAILY 12/10/22 12/10/22 Previous Rx's Medication Instructions Recorded Ibuprofen [Motrin] 800 mg PO Q8HR PRN #30 tab 06/07/22 Allergies Allergy/AdvReac Type Severity Reaction Status Date / Time bee pollen Allergy Severe Anaphylaxis Verified 01/21/23 09:39 haloperidol lactate Allergy Severe QUIT Verified 01/21/23 09:39 [From Haldol] BREATHING latex Allergy Severe RASH-THROAT Verified 01/21/23 09:39 CLOSES [place] Allergy Anaphylaxis Verified 01/21/23 09:39 coconut Allergy Anaphylaxis Verified 01/21/23 09:39 pineapple Allergy Anaphylaxis Verified 01/21/23 09:39 spider venom Allergy Swelling Verified 01/21/23 09:39 Sulfa (Sulfonamide Allergy Anaphylaxis Verified 01/21/23 09:39 Antibiotics) venom-wasp Allergy Swelling Verified 01/21/23 09:39 venom-wasp protein Allergy Swelling Verified 01/21/23 09:39 promethazine HCl AdvReac Severe Nausea & Verified 01/21/23 09:39 [From Phenergan] Vomiting amoxicillin AdvReac Nausea & Verified 01/21/23 09:39 Vomiting ANTS AdvReac Mild Anaphylaxis Uncoded 01/21/23 09:39 Review of Systems ROS Statement: Those systems with pertinent positive or pertinent negative responses have been documented in the HPI. ROS Other: All systems not noted in ROS Statement are negative. Past Medical History Past Medical History: Asthma, Diabetes Mellitus, GERD/Reflux Additional Past Medical History / Comment(s): migraines, degenerative disk disease, endometriosis, lupus, pancreatitis, DM2- insulin, gastroparesis History of Any Multi-Drug Resistant Organisms: None Reported Past Surgical History: Cholecystectomy, Orthopedic Surgery Additional Past Surgical History / Comment(s): laparoscopc surgery for endometriosis, cyst removed from left foot, EGD, Past Anesthesia/Blood Transfusion Reactions: Previous Problems w/ Anesthesia Additional Past Anesthesia/Blood Transfusion Reaction / Comment(s): hard to wake up for 48-72 hours after laparoscopic surgery-was in hosp. for 3 days Past Psychological History: Anxiety, Depression, PTSD Smoking Status: Former smoker, Vaper Past Alcohol Use History: None Reported Past Drug Use History: Marijuana - Past Family History Mother Family Medical History: Cancer Additional Family Medical History / Comment(s): Migraines, pancreatic cancer, . Father Family Medical History: Coronary Artery Disease (CAD), Hypertension Additional Family Medical History / Comment(s): ddd, alcoholism & drug use General Exam Limitations: no limitations General appearance: alert, in no apparent distress Head exam: Present: atraumatic, normocephalic, normal inspection Eye exam: Present: normal appearance, PERRL, EOMI. Absent: scleral icterus, conjunctival injection, periorbital swelling Respiratory exam: Present: normal lung sounds bilaterally. Absent: respiratory distress, wheezes, rales, rhonchi, stridor Cardiovascular Exam: Present: regular rate, normal rhythm, normal heart sounds. Absent: systolic murmur, diastolic murmur, rubs, gallop, clicks GI/Abdominal exam: Present: soft, tenderness (LUQ), normal bowel sounds. Absent: distended Neurological exam: Present: alert, oriented X3, CN II-XII intact Psychiatric exam: Present: normal affect, normal mood Skin exam: Present: warm, dry, intact, normal color. Absent: rash Course Vital Signs 01/21/23 01/21/23 09:39 11:59 Temperature 98.7 F Pulse Rate 101 H 78 Respiratory 181 H 18 Rate Blood Pressure 102/74 122/74 O2 Sat by Pulse 100 99 Oximetry Medical Decision Making - Medical Decision Making This is a 32 year old female who presents to the emergency department for abdominal pain and headaches. Was pt. sent in by a medical professional or institution? @ -No Did you speak to anyone other than the patient for history? @ -No Did you review nursing and triage notes? @ -Yes, and I agree, it is accurate with regards to the patient's symptoms. Were old charts reviewed? @ -No Differential Diagnosis? @ -Differential Abdominal Pain Women: Appendicitis, Cholecystitis, diverticulosis, ischemic bowel, pancreatitis, hepatitis, UTI, gastroenteritis, AAA, incarcerated hernia, bowel obstruction, constipation, inflammatory bowel, hepatitis, peptic ulcer disease, splenic infarction, perforated viscus, vulvitis, ovarian torsion, PID, kidney stone, placenta abruption, this is not meant to be an all-inclusive list EKG interpreted by me (3pts min.)? @ -Not obtained X-rays interpreted by me (1pt min.)? @ -Not obtained CT interpreted by me (1pt min.)? @ -Not obtained U/S interpreted by me (1pt. min.)? @ -Not obtained What testing was considered but not performed? (CT, X-rays, U/S, labs)? Why? @ -None What meds were considered but not given? Why? @ -None Did you discuss the management of the patient with other professionals? @ -No Did you reconcile home meds? @ -No Was smoking cessation discussed for >3mins.? @ -No Was critical care preformed (if so, how long)? @ -No Were there social determinants of health that impacted care today? How? (Homelessness, low income, unemployed, alcoholism, drug addiction, transportatio n, low edu. Level, literacy, decrease access to med. care, fpc, rehab)? @ -No Was there de-escalation of care discussed even if they declined? (Discuss DNR or withdrawal of care, Hospice)? @ -No What co-morbidities impacted this encounter? (DM, HTN, Smoking, COPD, CAD, Cancer, CVA, Hep., AIDS, mental health diagnosis, sleep apnea, morbid obesity)? @ -Chronic pancreatitis Was patient admitted / discharged? @ -Discharged. Lab work obtained and found to be nonactionable, including normal pancreatic enzymes. Patient's symptoms were well controlled with Toradol, Benadryl, and Tylenol in the emergency department. Patient discharged home in stable condition. Undiagnosed new problem with uncertain prognosis? @ -None Drug Therapy requiring intensive monitoring for toxicity (Heparin, Nitro, Insulin, Cardizem)? @ -None Were any procedures done? @ -None Diagnosis/symptom? @ -Abdominal pain, headache Acute, or Chronic, or Acute on Chronic? @ -Acute Uncomplicated (without systemic symptoms) or Complicated (systemic symptoms)? @ -Uncomplicated Side effects of treatment? @ -None Exacerbation, Progression, or Severe Exacerbation] @ -Not applicable Poses a threat to life or bodily function? @ -No Return precautions reviewed in depth, the patient is instructed to return to the emergency department with any new, worsening, or concerning symptoms. Patient verbalized understanding. This case was discussed in detail with the attending ED physician, Dr. Ray. Presentation, findings, and treatment plan discussed in detail as well. - Lab Data Result diagrams: 01/21/23 10:53 01/21/23 10:53 Lab Results 01/21/23 01/21/23 Range/Units 10:53 10:53 WBC 4.6 (3.8-10.6) k/uL RBC 4.15 (3.80-5.40) m/uL Hgb 12.4 (11.4-16.0) gm/dL Hct 38.9 (34.0-46.0) % MCV 93.6 (80.0-100.0) fL MCH 29.8 (25.0-35.0) pg MCHC 31.8 (31.0-37.0) g/dL RDW 15.1 (11.5-15.5) % Plt Count 269 (150-450) k/uL MPV 8.2 Neutrophils % 58 % Lymphocytes % 34 % Monocytes % 4 % Eosinophils % 2 % Basophils % 0 % Neutrophils # 2.7 (1.3-7.7) k/uL Lymphocytes # 1.5 (1.0-4.8) k/uL Monocytes # 0.2 (0-1.0) k/uL Eosinophils # 0.1 (0-0.7) k/uL Basophils # 0.0 (0-0.2) k/uL Hypochromasia Slight Sodium 137 (137-145) mmol/L Potassium 4.3 (3.5-5.1) mmol/L Chloride 105 (98-107) mmol/L Carbon Dioxide 18 L (22-30) mmol/L Anion Gap 14 mmol/L BUN 11 (7-17) mg/dL Creatinine 0.62 (0.52-1.04) mg/dL Est GFR (CKD-EPI)AfAm >90 (>60 ml/min/1.73 sqM) Est GFR (CKD-EPI)NonAf >90 (>60 ml/min/1.73 sqM) Glucose 135 H (74-99) mg/dL Calcium 11.1 H (8.4-10.2) mg/dL Total Bilirubin 0.4 (0.2-1.3) mg/dL AST 33 (14-36) U/L ALT 22 (4-34) U/L Alkaline Phosphatase 65 (38-126) U/L Total Protein 7.8 (6.3-8.2) g/dL Albumin 4.1 (3.5-5.0) g/dL Amylase 51 (30-110) U/L Lipase 103 (23-300) U/L Disposition Clinical Impression: Abdominal pain, Headache Disposition: HOME SELF-CARE Instructions (If sedation given, give patient instructions): Abdominal Pain (ED) Additional Instructions: Return to the emergency department with any new, worsening, or concerning symptoms. Follow up with your primary care provider in 1-2 days. Is patient prescribed a controlled substance at d/c from ED?: No Referrals: Isi Carolina MD [Primary Care Provider] - 1-2 days
[2023-01-21 11:11] LABS: Basophils % (A) 0 %; Eosinophils # (A) 0.1 k/uL (0-0.7); Eosinophils % (A) 2 %; HCT 38.9 % (34.0-46.0); HGB 12.4 gm/dL (11.4-16.0); Hypochromasia Slight; Lymphocytes # (A) 1.5 k/uL (1.0-4.8); Lymphocytes % (A) 34 %; MCH 29.8 pg (25.0-35.0); MCHC 31.8 g/dL (31.0-37.0); MCV 93.6 fL (80.0-100.0); Mean Platelet Volume 8.2; Monocytes # (A) 0.2 k/uL (0-1.0); Monocytes % (A) 4 %; Neutrophils # (A) 2.7 k/uL (1.3-7.7); Neutrophils % (A) 58 %; Platelet Count 269 k/uL (150-450); RBC 4.15 m/uL (3.80-5.40); RDW 15.1 % (11.5-15.5); WBC 4.6 k/uL (3.8-10.6)
[2023-01-21] MEDS ORDERED: ACETAMINOPHEN TAB 500 MG TAB PO STA (11:32)
[2023-01-21 11:49] LABS: ALT 22 U/L (4-34); AST 33 U/L (14-36); African American GFR (CKD) >90 (>60 ml/min/1.73 sqM); Albumin 4.1 g/dL (3.5-5.0); Alkaline Phosphatase 65 U/L (38-126); Amylase 51 U/L (30-110); Anion Gap 14 mmol/L; Blood Urea Nitrogen 11 mg/dL (7-17); Calcium 11.1 mg/dL (8.4-10.2); Carbon Dioxide 18 mmol/L (22-30); Chloride 105 mmol/L (98-107); Glucose 135 mg/dL (74-99); Lipase 103 U/L (23-300); Non-African American GFR(CKD) >90 (>60 ml/min/1.73 sqM); Potassium 4.3 mmol/L (3.5-5.1); Sodium 137 mmol/L (137-145); Total Bilirubin 0.4 mg/dL (0.2-1.3); Total Protein 7.8 g/dL (6.3-8.2)
[2023-01-21 12:15] VITALS: BP 122/74; PULSE 78; RESP 18
== END 2023-01-21 12:06 | disposition home or self-care (01) ==
LOC: EC 09:38
DX: R10.12 Left upper quadrant pain (principal); R51.9 Headache, unspecified; E11.43 Type 2 diabetes mellitus with diabetic autonomic (poly)neuropathy; K31.84 Gastroparesis; J45.909 Unspecified asthma, uncomplicated; K21.9 Gastro-esophageal reflux disease without esophagitis; F32.A Depression, unspecified; F41.9 Anxiety disorder, unspecified; F17.290 Nicotine dependence, other tobacco product, uncomplicated; F12.90 Cannabis use, unspecified, uncomplicated; Z79.4 Long term (current) use of insulin; Z79.84 Long term (current) use of oral hypoglycemic drugs; Z79.899 Other long term (current) drug therapy; Z88.0 Allergy status to penicillin; Z88.2 Allergy status to sulfonamides; Z88.8 Allergy status to other drugs, medicaments and biological substances; Z91.030 Bee allergy status; Z91.038 Other insect allergy status; Z91.040 Latex allergy status; Z91.018 Allergy to other foods; Z91.09 Other allergy status, other than to drugs and biological substances
CPT/HCPCS: 36415; 80053; 82150; 83690; 85025; 99284; 96372 ×4; J1200; J1885

== ENCOUNTER 2023-01-24 01:20 | Emergency (ER) | payer OTHER ==
[2023-01-24 01:41] VITALS: RESP 18; TEMP 98.7
[2023-01-24 04:16] LABS: Basophils % (A) 0 %; Eosinophils # (A) 0.1 k/uL (0-0.7); Eosinophils % (A) 3 %; HCT 31.9 % (34.0-46.0); HGB 10.8 gm/dL (11.4-16.0); Lymphocytes # (A) 1.7 k/uL (1.0-4.8); Lymphocytes % (A) 44 %; MCH 30.8 pg (25.0-35.0); MCHC 33.7 g/dL (31.0-37.0); MCV 91.4 fL (80.0-100.0); Mean Platelet Volume 7.8; Monocytes # (A) 0.2 k/uL (0-1.0); Monocytes % (A) 6 %; Neutrophils # (A) 1.6 k/uL (1.3-7.7); Neutrophils % (A) 44 %; Platelet Count 274 k/uL (150-450); RBC 3.49 m/uL (3.80-5.40); RDW 15.1 % (11.5-15.5); WBC 3.7 k/uL (3.8-10.6)
[2023-01-24 04:25] LABS: ALT 18 U/L (4-34); AST 21 U/L (14-36); African American GFR (CKD) >90 (>60 ml/min/1.73 sqM); Albumin 3.3 g/dL (3.5-5.0); Alkaline Phosphatase 70 U/L (38-126); Anion Gap 10 mmol/L; Blood Urea Nitrogen 9 mg/dL (7-17); Calcium 10.4 mg/dL (8.4-10.2); Carbon Dioxide 17 mmol/L (22-30); Chloride 109 mmol/L (98-107); Glucose 132 mg/dL (74-99); Lipase 234 U/L (23-300); Non-African American GFR(CKD) >90 (>60 ml/min/1.73 sqM); Potassium 4.1 mmol/L (3.5-5.1); Sodium 136 mmol/L (137-145); Total Bilirubin 0.4 mg/dL (0.2-1.3); Total Protein 6.4 g/dL (6.3-8.2)
--- NOTE | 2023-01-24 04:37 | ED ---
Abdominal Pain HPI - General Chief Complaint: Abdominal Pain Stated Complaint: Abdominal Pain Time Seen by Provider: 01/24/23 03:27 Source: patient Mode of arrival: ambulatory Limitations: no limitations - History of Present Illness Initial Comments: Elsy is a 32-year-old female para well-known to our emergency department due to frequent visits for abdominal pain secondary to chronic GI issues. Patient is currently following a few of them and has a gastric emptying study scheduled for Wednesday to evaluate for possible gastroparesis. Patient states that she just had epigastric pain throughout the day today. She reports difficulty holding anything down. She denies fevers chills chest pain. - Related Data Home Medications Medication Instructions Recorded Confirmed Omeprazole 20 mg PO BID 11/16/21 12/10/22 Acetaminophen [Tylenol Extra 500 mg PO Q4H PRN 03/30/22 12/10/22 Strength] Insulin Aspart [NovoLOG Flexpen] See Protocol SQ TID-W/MEALS 03/30/22 12/10/22 Insulin Glargine,Hum.rec.anlog 45 units SQ DAILY 03/30/22 12/10/22 [Lantus Solostar Pen] Ondansetron Odt [Zofran ODT] 4 mg PO Q6H PRN 03/30/22 12/10/22 tiZANidine [Zanaflex] 4 mg PO BID PRN 03/30/22 12/10/22 Etonogestrel [Nexplanon] 68 mg INTRADERMA DIRECTED 06/22/22 12/10/22 Albuterol Nebulized [Ventolin 2.5 mg INHALATION RT-Q4H PRN 09/18/22 12/10/22 Nebulized] Insulin Aspart [NovoLOG Flexpen] 10 units SQ TID-W/MEALS 09/18/22 12/10/22 Lipase/Protease/Amylase [Zenpep Dr 2 cap PO TID-W/MEALS 09/18/22 12/10/22 5,000 Unit Capsule] Pioglitazone [Actos] 30 mg PO DAILY 09/18/22 12/10/22 Atorvastatin [Lipitor] 80 mg PO HS 10/27/22 12/10/22 EPINEPHrine (Auto Inject) [Epipen] 0.3 mg IM DIRECTED PRN 10/27/22 12/10/22 Fenofibrate [Lofibra] 160 mg PO DAILY 10/27/22 12/10/22 QUEtiapine FUMARATE [SEROquel] 600 mg PO HS 11/09/22 12/10/22 Fluoride (Sodium) [Sodium Fluoride 1 applic DENTAL DAILY 12/10/22 12/10/22 5000 Plus] Metoclopramide [Reglan] 5 mg PO ACHS PRN 12/10/22 12/10/22 Pantoprazole [Protonix] 40 mg PO BID 12/10/22 12/10/22 Sucralfate [Carafate] 1 gm PO BID 12/10/22 12/10/22 metFORMIN HCL 1,000 mg PO BID 12/10/22 12/10/22 sitaGLIPtin [Januvia] 100 mg PO DAILY 12/10/22 12/10/22 Previous Rx's Medication Instructions Recorded Ibuprofen [Motrin] 800 mg PO Q8HR PRN #30 tab 06/07/22 Allergies Allergy/AdvReac Type Severity Reaction Status Date / Time bee pollen Allergy Severe Anaphylaxis Verified 01/24/23 01:30 haloperidol lactate Allergy Severe QUIT Verified 01/24/23 01:30 [From Haldol] BREATHING latex Allergy Severe RASH-THROAT Verified 01/24/23 01:30 CLOSES [place] Allergy Anaphylaxis Verified 01/24/23 01:30 coconut Allergy Anaphylaxis Verified 01/24/23 01:30 pineapple Allergy Anaphylaxis Verified 01/24/23 01:30 spider venom Allergy Swelling Verified 01/24/23 01:30 Sulfa (Sulfonamide Allergy Anaphylaxis Verified 01/24/23 01:30 Antibiotics) venom-wasp Allergy Swelling Verified 01/24/23 01:30 venom-wasp protein Allergy Swelling Verified 01/24/23 01:30 promethazine HCl AdvReac Severe Nausea & Verified 01/24/23 01:30 [From Phenergan] Vomiting amoxicillin AdvReac Nausea & Verified 01/24/23 01:30 Vomiting ANTS AdvReac Mild Anaphylaxis Uncoded 01/24/23 01:30 Review of Systems ROS Statement: Those systems with pertinent positive or pertinent negative responses have been documented in the HPI. ROS Other: All systems not noted in ROS Statement are negative. Past Medical History Past Medical History: Asthma, Diabetes Mellitus, GERD/Reflux Additional Past Medical History / Comment(s): migraines, degenerative disk disease, endometriosis, lupus, pancreatitis, DM2- insulin, gastroparesis History of Any Multi-Drug Resistant Organisms: None Reported Past Surgical History: Cholecystectomy, Orthopedic Surgery Additional Past Surgical History / Comment(s): laparoscopc surgery for endometriosis, cyst removed from left foot, EGD, Past Anesthesia/Blood Transfusion Reactions: Previous Problems w/ Anesthesia Additional Past Anesthesia/Blood Transfusion Reaction / Comment(s): hard to wake up for 48-72 hours after laparoscopic surgery-was in hosp. for 3 days Past Psychological History: Anxiety, Depression, PTSD Smoking Status: Former smoker, Vaper Past Alcohol Use History: None Reported Past Drug Use History: Marijuana - Past Family History Mother Family Medical History: Cancer Additional Family Medical History / Comment(s): Migraines, pancreatic cancer, . Father Family Medical History: Coronary Artery Disease (CAD), Hypertension Additional Family Medical History / Comment(s): ddd, alcoholism & drug use General Exam - General Exam Comments Initial Comments: Physical Exam GENERAL: Patient is well-developed and well-nourished. Patient is nontoxic and well-hydrated and is in no distress. HENT: Normocephalic, Atraumatic. EYES: PERRL, EOMI PULMONARY: Unlabored respirations. No audible rales rhonchi or wheezing was noted. CARDIOVASCULAR: Tachycardic, regular ABDOMEN: Soft Tenderness to deep palpation in the epigastrium. No peritoneal signs no rebound SKIN: Skin is clear with no lesions or rashes and otherwise unremarkable. : Deferred NEUROLOGIC: Patient is alert and oriented x3. Moving all extremities spontaneously MUSCULOSKELETAL: Normal extremities with adequate strength and full range of motion. No lower extremity swelling or edema. No calf tenderness. PSYCHIATRIC: Normal psychiatric evaluation. Limitations: no limitations Course Vital Signs 01/24/23 01:30 Temperature 98.7 F Pulse Rate 116 H Respiratory 18 Rate Blood Pressure 132/85 O2 Sat by Pulse 99 Oximetry Medical Decision Making - Medical Decision Making Was pt. sent in by a medical professional or institution (, PA, CORRECTIONAL THERAPY TEACHER, urgent care, hospital, or correction...) When possible be specific @ -No Did you speak to anyone other than the patient for history (EMS, parent, family, police, friend...)? What history was obtained from this source @ -No Did you review nursing and triage notes (agree or disagree)? Why? @ -I reviewed and agree with nursing and triage notes Were old charts reviewed (outside hosp., previous admission, EMS record, old EKG, old radiological studies, urgent care reports/EKG's, correction records)? Report findings @ -Previous labs and imaging were reviewed Differential Diagnosis (chest pain, altered mental status, abdominal pain women, abdominal pain men, vaginal bleeding, weakness, fever, dyspnea, syncope, head ache, dizziness, GI bleed, back pain, seizure, CVA, palpatations, mental health, musculoskeletal)? @ -Differential Abdominal Pain Women: Appendicitis, Cholecystitis, diverticulosis, ischemic bowel, pancreatitis, hepatitis, UTI, gastroenteritis, AAA, incarcerated hernia, bowel obstruction, constipation, inflammatory bowel, hepatitis, peptic ulcer disease, splenic infarction, perforated viscus, vulvitis, ovarian torsion, PID, kidney stone, placenta abruption, this is not meant to be an all-inclusive list EKG interpreted by me (3pts min.). @ -As above X-rays interpreted by me (1pt min.). @ -None done CT interpreted by me (1pt min.). @ -None done U/S interpreted by me (1pt. min.). @ -None done What testing was considered but not performed or refused? (CT, X-rays, U/S, labs)? Why? @ -CT imaging was considered however given the chronicity of the pain and relatively normal exam I did not feel imaging was warranted at this time What meds were considered but not given or refused? Why? @ -None Did you discuss the management of the patient with other professionals (professionals i.e. , PA, CORRECTIONAL THERAPY TEACHER, lab, RT, psych nurse, long term care social worker, engineer conductor, teacher, border patrol officer, leather case finisher)? Give summary @ -No Was smoking cessation discussed for >3mins.? @ -No Was critical care preformed (if so, how long)? @ -No Were there social determinants of health that impacted care today? How? (Homelessness, low income, unemployed, alcoholism, drug addiction, transportation, low edu. Level, literacy, decrease access to med. care, correction, rehab)? @ -No Was there de-escalation of care discussed even if they declined (Discuss DNR or withdrawal of care, Hospice)? DNR status @ -No What co-morbidities impacted this encounter? (DM, HTN, Smoking, COPD, CAD, Cancer, CVA, ARF, Chemo, Hep., AIDS, mental health diagnosis, sleep apnea, morbid obesity)? @ -None Was patient admitted / discharged? Hospital course, mention meds given and route, prescriptions, significant lab abnormalities, going to OR and other pertinent info. @ -Discharge Patient was seen and evaluated labs were obtained and are unremarkable, no elevated lipase no leukocytosis evidence of significant dehydration History of Zofran and morphine and upon reevaluation she is drinking water Undiagnosed new problem with uncertain prognosis? @ -No Drug Therapy requiring intensive monitoring for toxicity (Heparin, Nitro, Insulin, Cardizem)? @ -No Were any procedures done? @ -No Diagnosis/symptom? @ -Chronic epigastric abdominal pain Acute, or Chronic, or Acute on Chronic? @ -Chronic Uncomplicated (without systemic symptoms) or Complicated (systemic symptoms)? @ -default Side effects of treatment? @ -No Exacerbation, Progression, or Severe Exacerbation? @ -No Poses a threat to life or bodily function? How? (Chest pain, [place], ID, pneumonia, PE, COPD, DKA, ARF, appy, cholecystitis, CVA, Diverticulitis, Homicidal, Suicidal, threat to staff... and all critical care pts) @ -No - Lab Data Result diagrams: 01/24/23 03:59 01/24/23 03:59 Lab Results 01/24/23 01/24/23 Range/Units 03:59 03:59 WBC 3.7 L (3.8-10.6) k/uL RBC 3.49 L (3.80-5.40) m/uL Hgb 10.8 L (11.4-16.0) gm/dL Hct 31.9 L (34.0-46.0) % MCV 91.4 (80.0-100.0) fL MCH 30.8 (25.0-35.0) pg MCHC 33.7 (31.0-37.0) g/dL RDW 15.1 (11.5-15.5) % Plt Count 274 (150-450) k/uL MPV 7.8 Neutrophils % 44 % Lymphocytes % 44 % Monocytes % 6 % Eosinophils % 3 % Basophils % 0 % Neutrophils # 1.6 (1.3-7.7) k/uL Lymphocytes # 1.7 (1.0-4.8) k/uL Monocytes # 0.2 (0-1.0) k/uL Eosinophils # 0.1 (0-0.7) k/uL Basophils # 0.0 (0-0.2) k/uL Sodium 136 L (137-145) mmol/L Potassium 4.1 (3.5-5.1) mmol/L Chloride 109 H (98-107) mmol/L Carbon Dioxide 17 L (22-30) mmol/L Anion Gap 10 mmol/L BUN 9 (7-17) mg/dL Creatinine 0.48 L (0.52-1.04) mg/dL Est GFR (CKD-EPI)AfAm >90 (>60 ml/min/1.73 sqM) Est GFR (CKD-EPI)NonAf >90 (>60 ml/min/1.73 sqM) Glucose 132 H (74-99) mg/dL Calcium 10.4 H (8.4-10.2) mg/dL Total Bilirubin 0.4 (0.2-1.3) mg/dL AST 21 (14-36) U/L ALT 18 (4-34) U/L Alkaline Phosphatase 70 (38-126) U/L Total Protein 6.4 (6.3-8.2) g/dL Albumin 3.3 L (3.5-5.0) g/dL Lipase 234 (23-300) U/L Disposition Clinical Impression: Abdominal pain, epigastric Disposition: HOME SELF-CARE Condition: Stable Additional Instructions: Follow up with GI at [facility] as planned Is patient prescribed a controlled substance at d/c from ED?: No Referrals: Isi Carolina MD [Primary Care Provider] - 1-2 days
[2023-01-24] MEDS ORDERED: MORPHINE SULFATE 4 MG/ML SYRINGE IM STA (05:03)
[2023-01-24] MEDS ORDERED: ONDANSETRON ODT 4 MG TAB PO STA (05:03)
[2023-01-24 06:14] VITALS: BP 99/69; PULSE 91
== END 2023-01-24 06:07 | disposition home or self-care (01) ==
LOC: EC 01:20
DX: R10.13 Epigastric pain (principal); E11.9 Type 2 diabetes mellitus without complications; J45.909 Unspecified asthma, uncomplicated; K21.9 Gastro-esophageal reflux disease without esophagitis; F41.9 Anxiety disorder, unspecified; F32.A Depression, unspecified; F17.290 Nicotine dependence, other tobacco product, uncomplicated; F12.90 Cannabis use, unspecified, uncomplicated; Z79.899 Other long term (current) drug therapy; Z79.4 Long term (current) use of insulin; Z79.84 Long term (current) use of oral hypoglycemic drugs; Z88.0 Allergy status to penicillin; Z88.2 Allergy status to sulfonamides; Z91.030 Bee allergy status; Z91.040 Latex allergy status; Z88.8 Allergy status to other drugs, medicaments and biological substances; Z91.018 Allergy to other foods
CPT/HCPCS: 36415; 80053; 83690; 85025; 99284; 96372; J2270

== ENCOUNTER 2023-01-26 00:22 | Emergency (ER) | payer OTHER ==
[2023-01-26 01:10] VITALS: TEMP 98.5
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
[2023-01-26 04:10] VITALS: BP 103/73; PULSE 97; RESP 16
== END 2023-01-26 04:07 | disposition home or self-care (01) ==
LOC: EC 00:22
DX: R10.9 Unspecified abdominal pain (principal); G89.29 Other chronic pain; J45.909 Unspecified asthma, uncomplicated; E11.9 Type 2 diabetes mellitus without complications; K21.9 Gastro-esophageal reflux disease without esophagitis; F17.290 Nicotine dependence, other tobacco product, uncomplicated; F12.90 Cannabis use, unspecified, uncomplicated; Z86.59 Personal history of other mental and behavioral disorders; Z79.4 Long term (current) use of insulin; Z79.84 Long term (current) use of oral hypoglycemic drugs; Z79.899 Other long term (current) drug therapy; Z91.030 Bee allergy status; Z91.040 Latex allergy status; Z88.2 Allergy status to sulfonamides; Z91.018 Allergy to other foods; Z88.8 Allergy status to other drugs, medicaments and biological substances; Z88.0 Allergy status to penicillin; Z88.1 Allergy status to other antibiotic agents; Z90.49 Acquired absence of other specified parts of digestive tract
CPT/HCPCS: 99285

== ENCOUNTER 2023-01-26 23:26 | Observation (INO) | payer OTHER ==
[2023-01-26 23:34] VITALS: RESP 16
[2023-01-27] MEDS ORDERED: diphenhydrAMINE 50 MG/ML 1 ML VIAL IVP STA (00:05)
[2023-01-27] MEDS ORDERED: KETOROLAC 15 MG/ML 1 ML VIAL IVP STA (00:05)
--- NOTE | 2023-01-27 00:13 | ED ---
General Adult HPI - General Chief complaint: Nausea/Vomiting/Diarrhea Stated complaint: Chest Pain, N/V Time Seen by Provider: 01/26/23 23:36 Source: patient Mode of arrival: ambulatory Limitations: no limitations - History of Present Illness Initial comments: Dictation was produced using [employer] dictation software. please excuse any grammatical, word or spelling errors. Chief Complaint: 32-year-old female with abdominal pain History of Present Illness: Is a 32-year-old female presents emergency department for abdominal pain. Patient states that started couple hours prior to arrival. Patient frequents the emergency department often for abdominal pain. States that the pain is in her epigastrium. Denies any radiations. She does have some associated nausea. She has a history of pancreatitis and chronic headaches. Patient has no other complaints. The ROS documented in this emergency department record has been reviewed and confirmed by me. Those systems with pertinent positive or negative responses have been documented in the HPI. All other systems are other negative and/or noncontributory. - Related Data Home Medications Medication Instructions Recorded Confirmed Omeprazole 20 mg PO BID 11/16/21 12/10/22 Acetaminophen [Tylenol Extra 500 mg PO Q4H PRN 03/30/22 12/10/22 Strength] Insulin Aspart [NovoLOG Flexpen] See Protocol SQ TID-W/MEALS 03/30/22 12/10/22 Insulin Glargine,Hum.rec.anlog 45 units SQ DAILY 03/30/22 12/10/22 [Lantus Solostar Pen] Ondansetron Odt [Zofran ODT] 4 mg PO Q6H PRN 03/30/22 12/10/22 tiZANidine [Zanaflex] 4 mg PO BID PRN 03/30/22 12/10/22 Etonogestrel [Nexplanon] 68 mg INTRADERMA DIRECTED 06/22/22 12/10/22 Albuterol Nebulized [Ventolin 2.5 mg INHALATION RT-Q4H PRN 09/18/22 12/10/22 Nebulized] Insulin Aspart [NovoLOG Flexpen] 10 units SQ TID-W/MEALS 09/18/22 12/10/22 Lipase/Protease/Amylase [Zenpep Dr 2 cap PO TID-W/MEALS 09/18/22 12/10/22 5,000 Unit Capsule] Pioglitazone [Actos] 30 mg PO DAILY 09/18/22 12/10/22 Atorvastatin [Lipitor] 80 mg PO HS 10/27/22 12/10/22 EPINEPHrine (Auto Inject) [Epipen] 0.3 mg IM DIRECTED PRN 10/27/22 12/10/22 Fenofibrate [Lofibra] 160 mg PO DAILY 10/27/22 12/10/22 QUEtiapine FUMARATE [SEROquel] 600 mg PO HS 11/09/22 12/10/22 Fluoride (Sodium) [Sodium Fluoride 1 applic DENTAL DAILY 12/10/22 12/10/22 5000 Plus] Metoclopramide [Reglan] 5 mg PO ACHS PRN 12/10/22 12/10/22 Pantoprazole [Protonix] 40 mg PO BID 12/10/22 12/10/22 Sucralfate [Carafate] 1 gm PO BID 12/10/22 12/10/22 metFORMIN HCL 1,000 mg PO BID 12/10/22 12/10/22 sitaGLIPtin [Januvia] 100 mg PO DAILY 12/10/22 12/10/22 Previous Rx's Medication Instructions Recorded Ibuprofen [Motrin] 800 mg PO Q8HR PRN #30 tab 06/07/22 Allergies Allergy/AdvReac Type Severity Reaction Status Date / Time bee pollen Allergy Severe Anaphylaxis Verified 01/26/23 23:31 haloperidol lactate Allergy Severe QUIT Verified 01/26/23 23:31 [From Haldol] BREATHING latex Allergy Severe RASH-THROAT Verified 01/26/23 23:31 CLOSES [place] Allergy Anaphylaxis Verified 01/26/23 23:31 coconut Allergy Anaphylaxis Verified 01/26/23 23:31 pineapple Allergy Anaphylaxis Verified 01/26/23 23:31 spider venom Allergy Swelling Verified 01/26/23 23:31 Sulfa (Sulfonamide Allergy Anaphylaxis Verified 01/26/23 23:31 Antibiotics) venom-wasp Allergy Swelling Verified 01/26/23 23:31 venom-wasp protein Allergy Swelling Verified 01/26/23 23:31 promethazine HCl AdvReac Severe Nausea & Verified 01/26/23 23:31 [From Phenergan] Vomiting amoxicillin AdvReac Nausea & Verified 01/26/23 23:31 Vomiting ANTS AdvReac Mild Anaphylaxis Uncoded 01/26/23 23:31 Review of Systems ROS Statement: Those systems with pertinent positive or pertinent negative responses have been documented in the HPI. ROS Other: All systems not noted in ROS Statement are negative. Past Medical History Past Medical History: Asthma, Diabetes Mellitus, GERD/Reflux Additional Past Medical History / Comment(s): migraines, degenerative disk disease, endometriosis, lupus, pancreatitis, DM2- insulin, gastroparesis History of Any Multi-Drug Resistant Organisms: None Reported Past Surgical History: Cholecystectomy, Orthopedic Surgery Additional Past Surgical History / Comment(s): laparoscopc surgery for endometriosis, cyst removed from left foot, EGD, Past Anesthesia/Blood Transfusion Reactions: Previous Problems w/ Anesthesia Additional Past Anesthesia/Blood Transfusion Reaction / Comment(s): hard to wake up for 48-72 hours after laparoscopic surgery-was in hosp. for 3 days Past Psychological History: Anxiety, Depression, PTSD Smoking Status: Former smoker, Vaper Past Alcohol Use History: None Reported Past Drug Use History: Marijuana - Past Family History Mother Family Medical History: Cancer Additional Family Medical History / Comment(s): Migraines, pancreatic cancer, . Father Family Medical History: Coronary Artery Disease (CAD), Hypertension Additional Family Medical History / Comment(s): ddd, alcoholism & drug use General Exam - General Exam Comments Initial Comments: PHYSICAL EXAM: General Impression: Alert and oriented x3, not in acute distress HEENT: Normocephalic atraumatic, extra-ocular movements intact, pupils equal and reactive to light bilaterally, mucous membranes moist. Cardiovascular: Heart regular rate and rhythm Chest: Able to complete full sentences, no retractions, no tachypnea Abdomen: abdomen soft, mild tenderness to the epigastric abdomen, non-distended, no organomegaly Musculoskeletal: Pulses present and equal in all extremities, no peripheral edema Motor: no focal deficits noted Neurological: CN II-XII grossly intact, no focal motor or sensory deficits noted Skin: Intact with no visualized rashes Psych: Normal affect and mood Limitations: no limitations Course Vital Signs 01/26/23 23:28 Temperature 98.0 F Pulse Rate 74 Respiratory 16 Rate Blood Pressure 152/107 O2 Sat by Pulse 100 Oximetry Medical Decision Making - Medical Decision Making Was pt. sent in by a medical professional or institution (, PA, ENROLLMENT CONSULTANT, urgent care, hospital, or intermediate...) When possible be specific @ -No Did you speak to anyone other than the patient for history (EMS, parent, family, police, friend...)? What history was obtained from this source @ -No Did you review nursing and triage notes (agree or disagree)? Why? @ -I reviewed and agree with nursing and triage notes Were old charts reviewed (outside hosp., previous admission, EMS record, old EKG, old radiological studies, urgent care reports/EKG's, intermediate records)? Report findings @ -No old charts were reviewed Differential Diagnosis (chest pain, altered mental status, abdominal pain women, abdominal pain men, vaginal bleeding, musculoskeletal, weakness, fever, dyspnea, syncope, headache, dizziness, GI bleed, back pain, seizure, CVA, palpatations, mental health)? @ -Differential Abdominal Pain Women: Appendicitis, Cholecystitis, diverticulosis, ischemic bowel, pancreatitis, hepatitis, UTI, gastroenteritis, AAA, incarcerated hernia, bowel obstruction, constipation, inflammatory bowel, hepatitis, peptic ulcer disease, splenic infarction, perforated viscus, vulvitis, ovarian torsion, PID, kidney stone, placenta abruption, this is not meant to be an all-inclusive list EKG interpreted by me (3pts min.). @ -None done X-rays interpreted by me (1pt min.). @ -None done CT interpreted by me (1pt min.). @ -None done U/S interpreted by me (1pt. min.). @ -None done What testing was considered but not performed or refused? (CT, X-rays, U/S, labs)? Why? @ -None What meds were considered but not given or refused? Why? @ -None Did you discuss the management of the patient with other professionals (professionals i.e. , PA, ENROLLMENT CONSULTANT, lab, RT, psych nurse, social welfare administrator, geotechnical intern, teacher, correctional officer captain, renal case manager)? Give summary @ -No Was smoking cessation discussed for >3mins.? @ -No Was critical care preformed (if so, how long)? @ -No Were there social determinants of health that impacted care today? How? (Homelessness, low income, unemployed, alcoholism, drug addiction, transportation, low edu. Level, literacy, decrease access to med. care, long-term, rehab)? @ -No Was there de-escalation of care discussed even if they declined (Discuss DNR or withdrawal of care, Hospice)? DNR status @ -No What co-morbidities impacted this encounter? (DM, HTN, Smoking, COPD, CAD, Cancer, CVA, ARF, Chemo, Hep., AIDS, mental health diagnosis, sleep apnea, morbid obesity)? @ -None Was patient admitted / discharged? Hospital course, mention meds given and route, prescriptions, significant lab abnormalities, going to OR and other pertinent info. @ -32-year-old female presents yet again to the emergency department for abdominal pain. She has history of pancreatitis. Vital signs stable. This is her eighth visit to the ER this month. I've seen and evaluated this patient's on multiple occasions over the last several years. Laboratory evaluation obtained. CBC is unremarkable. Mild non-gap acidosis. Lipase is 1007. Clinical presentation consistent with pancreatitis. Patient be admitted with consultation to GI. Undiagnosed new problem with uncertain prognosis? @ -No Drug Therapy requiring intensive monitoring for toxicity (Heparin, Nitro, Insulin, Cardizem)? @ -No Were any procedures done? @ -No Diagnosis/symptom? Acute, or Chronic, or Acute on Chronic? Uncomplicated (without systemic symptoms) or Complicated (systemic symptoms)? @ -Abdominal pain Side effects of treatment? @ -No Exacerbation, Progression, or Severe Exacerbation? @ -No Poses a threat to life or bodily function? How? (Chest pain, [place], [place], pneumonia, PE, COPD, DKA, ARF, appy, cholecystitis, CVA, Diverticulitis, Homicidal, Suicidal, threat to staff... and all critical care pts) @ -No - Lab Data Result diagrams: 01/27/23 00:16 01/27/23 00:16 Lab Results 01/27/23 01/27/23 Range/Units 00:16 00:16 WBC 5.5 (3.8-10.6) k/uL RBC 3.62 L (3.80-5.40) m/uL Hgb 11.1 L (11.4-16.0) gm/dL Hct 32.4 L (34.0-46.0) % MCV 89.3 (80.0-100.0) fL MCH 30.5 (25.0-35.0) pg MCHC 34.2 (31.0-37.0) g/dL RDW 15.1 (11.5-15.5) % Plt Count 303 (150-450) k/uL MPV 8.1 Neutrophils % 53 % Lymphocytes % 38 % Monocytes % 5 % Eosinophils % 2 % Basophils % 1 % Neutrophils # 2.9 (1.3-7.7) k/uL Lymphocytes # 2.1 (1.0-4.8) k/uL Monocytes # 0.3 (0-1.0) k/uL Eosinophils # 0.1 (0-0.7) k/uL Basophils # 0.0 (0-0.2) k/uL Sodium 137 (137-145) mmol/L Potassium 4.2 (3.5-5.1) mmol/L Chloride 108 H (98-107) mmol/L Carbon Dioxide 18 L (22-30) mmol/L Anion Gap 11 mmol/L BUN 12 (7-17) mg/dL Creatinine 0.79 (0.52-1.04) mg/dL Est GFR (CKD-EPI)AfAm >90 (>60 ml/min/1.73 sqM) Est GFR (CKD-EPI)NonAf >90 (>60 ml/min/1.73 sqM) Glucose 148 H (74-99) mg/dL Calcium 10.7 H (8.4-10.2) mg/dL Total Bilirubin 0.3 (0.2-1.3) mg/dL AST 22 (14-36) U/L ALT 20 (4-34) U/L Alkaline Phosphatase 68 (38-126) U/L Total Protein 6.6 (6.3-8.2) g/dL Albumin 3.4 L (3.5-5.0) g/dL Lipase 1007 H (23-300) U/L Disposition Clinical Impression: Pancreatitis Disposition: ADMITTED IP TO THIS [facility] Condition: Fair Referrals: Isi Carolina MD [Primary Care Provider] - 1-2 days Decision Time: 01:10
[2023-01-27 00:28] LABS: Basophils % (A) 1 %; Eosinophils # (A) 0.1 k/uL (0-0.7); Eosinophils % (A) 2 %; HCT 32.4 % (34.0-46.0); HGB 11.1 gm/dL (11.4-16.0); Lymphocytes # (A) 2.1 k/uL (1.0-4.8); Lymphocytes % (A) 38 %; MCH 30.5 pg (25.0-35.0); MCHC 34.2 g/dL (31.0-37.0); MCV 89.3 fL (80.0-100.0); Mean Platelet Volume 8.1; Monocytes # (A) 0.3 k/uL (0-1.0); Monocytes % (A) 5 %; Neutrophils # (A) 2.9 k/uL (1.3-7.7); Neutrophils % (A) 53 %; Platelet Count 303 k/uL (150-450); RBC 3.62 m/uL (3.80-5.40); RDW 15.1 % (11.5-15.5); WBC 5.5 k/uL (3.8-10.6)
[2023-01-27 00:55] LABS: ALT 20 U/L (4-34); AST 22 U/L (14-36); African American GFR (CKD) >90 (>60 ml/min/1.73 sqM); Albumin 3.4 g/dL (3.5-5.0); Alkaline Phosphatase 68 U/L (38-126); Anion Gap 11 mmol/L; Blood Urea Nitrogen 12 mg/dL (7-17); Calcium 10.7 mg/dL (8.4-10.2); Carbon Dioxide 18 mmol/L (22-30); Chloride 108 mmol/L (98-107); Glucose 148 mg/dL (74-99); Lipase 1007 U/L (23-300); Non-African American GFR(CKD) >90 (>60 ml/min/1.73 sqM); Potassium 4.2 mmol/L (3.5-5.1); Sodium 137 mmol/L (137-145); Total Bilirubin 0.3 mg/dL (0.2-1.3); Total Protein 6.6 g/dL (6.3-8.2)
[2023-01-27] MEDS ORDERED: SODIUM CHLORIDE 0.9% 1,000 ML IV STA (01:05)
[2023-01-27] MEDS ORDERED: ACETAMINOPHEN TAB 325 MG TAB PO PRN (01:08)
[2023-01-27] MEDS ORDERED: NALOXONE 0.4 MG/ML 1 ML VIAL IV PRN (01:08)
[2023-01-27] MEDS ORDERED: MORPHINE SULFATE 4 MG/ML SYRINGE IV STA (01:11)
[2023-01-27] MEDS ORDERED: ONDANSETRON 4 MG/2 ML VIAL IVP STA (01:11)
[2023-01-27] MEDS: SODIUM CHLORIDE 0.9% 1,000 ML IV SCH ×2 (01:19→10:56)
[2023-01-27 09:10] VITALS: TEMP 97.8
[2023-01-27] MEDS ORDERED: ACETAMINOPHEN IV (For NPO) 1,000 MG in EMPTY BAG 1 BAG IVPB PRN (10:34)
[2023-01-27] MEDS ORDERED: ALBUTEROL NEBULIZED 2.5 MG/3 ML INHALATION PRN (10:42)
--- NOTE | 2023-01-27 10:42 | P.HPIM ---
History of Present Illness Patient is a 22-year-old female with multiple Hospital physicians for idiopathic pancreatitis in the past came in with epigastric sharp abdominal pain 10/10 in severity has been going on for a few months but much worse since last night along with nausea vomiting. Patient is found to have lipase of thousand. Patient is receiving IV fluids at this time. Patient will be started on IV Tylenol for pain. Patient is still nauseous to eat or drink anything at this time. REVIEW OF SYSTEMS: CONSTITUTIONAL: No fever, no malaise, no fatigue. HEENT: No recent visual problems or hearing problems. Denied any sore throat. CARDIOVASCULAR: No chest pain, orthopnea, PND, no palpitations, no syncope. PULMONARY: No shortness of breath, no cough, no hemoptysis. GASTROINTESTINAL: No diarrhea. NEUROLOGICAL: No headaches, no weakness, no numbness. HEMATOLOGICAL: Denies any bleeding or petechiae. GENITOURINARY: Denies any burning micturition, frequency, or urgency. MUSCULOSKELETAL/RHEUMATOLOGICAL: Denies any joint pain, swelling, or any muscle pain. ENDOCRINE: Denies any polyuria or polydipsia. The rest of the 14-point review of systems is negative. PHYSICAL EXAMINATION: GENERAL: The patient is alert and oriented x3, not in any acute distress. Well developed, well nourished. HEENT: Pupils are round and equally reacting to light. EOMI. No scleral icterus. No conjunctival pallor. Normocephalic, atraumatic. No pharyngeal erythema. No thyromegaly. CARDIOVASCULAR: S1 and S2 present. No murmurs, rubs, or gallops. PULMONARY: Chest is clear to auscultation, no wheezing or crackles. ABDOMEN: Soft, Mild tenderness, nondistended, normoactive bowel sounds. No palpable organomegaly. MUSCULOSKELETAL: No joint swelling or deformity. EXTREMITIES: No cyanosis, clubbing, or pedal edema. NEUROLOGICAL: Gross neurological examination did not reveal any focal deficits. SKIN: No rashes. Assessment and plan -Possible pancreatitis, idiopathic a possibility of gastritis: Patient will be started on Protonix continue with IV fluids patient will remain nothing by mouth monitor clinically for pain and nausea. Patient will be started on Zofran for nausea -Type 2 diabetes mellitus: Patient will be started on sliding scale insulin hold off on oral hyperglycemic agents if patient remains nothing by mouth we will cut down the long-acting insulin -Hyperlipidemia -Hyperchloremic metabolic acidosis patient was switched to lactated Ringer's DVT prophylaxis: Lovenox as patient is not known to ambulate much when sick Past Medical History Past Medical History: Asthma, Diabetes Mellitus, GERD/Reflux Additional Past Medical History / Comment(s): migraines, degenerative disk disease, endometriosis, lupus, pancreatitis, DM2- insulin, gastroparesis History of Any Multi-Drug Resistant Organisms: None Reported Past Surgical History: Cholecystectomy, Orthopedic Surgery Additional Past Surgical History / Comment(s): laparoscopc surgery for endometriosis, cyst removed from left foot, EGD, Past Anesthesia/Blood Transfusion Reactions: Previous Problems w/ Anesthesia Additional Past Anesthesia/Blood Transfusion Reaction / Comment(s): hard to wake up for 48-72 hours after laparoscopic surgery-was in hosp. for 3 days Smoking Status: Former smoker - Past Family History Mother Family Medical History: Cancer Additional Family Medical History / Comment(s): Migraines, pancreatic cancer, . Father Family Medical History: Coronary Artery Disease (CAD), Hypertension Additional Family Medical History / Comment(s): ddd, alcoholism & drug use Medications and Allergies Home Medications Medication Instructions Recorded Confirmed Type Omeprazole 20 mg PO BID 11/16/21 01/27/23 History Acetaminophen [Tylenol Extra 500 mg PO Q4H PRN 03/30/22 01/27/23 History Strength] Insulin Aspart [NovoLOG Flexpen] See Protocol SQ TID-W/MEALS 03/30/22 01/27/23 History Insulin Glargine,Hum.rec.anlog 45 units SQ DAILY 03/30/22 01/27/23 History [Lantus Solostar Pen] Ondansetron Odt [Zofran ODT] 4 mg PO Q6H PRN 03/30/22 01/27/23 History tiZANidine [Zanaflex] 4 mg PO BID PRN 03/30/22 01/27/23 History Ibuprofen [Motrin] 800 mg PO Q8HR PRN #30 tab 06/07/22 01/27/23 Rx Albuterol Nebulized [Ventolin 2.5 mg INHALATION RT-Q4H PRN 09/18/22 01/27/23 History Nebulized] Insulin Aspart [NovoLOG Flexpen] 10 units SQ TID-W/MEALS 09/18/22 01/27/23 History Lipase/Protease/Amylase [Zenpep Dr 2 cap PO TID-W/MEALS 09/18/22 01/27/23 History 5,000 Unit Capsule] Pioglitazone [Actos] 30 mg PO DAILY 09/18/22 01/27/23 History Atorvastatin [Lipitor] 80 mg PO HS 10/27/22 01/27/23 History EPINEPHrine (Auto Inject) [Epipen] 0.3 mg IM DIRECTED PRN 10/27/22 01/27/23 History Fenofibrate [Lofibra] 160 mg PO DAILY 10/27/22 01/27/23 History QUEtiapine FUMARATE [SEROquel] 600 mg PO HS 11/09/22 01/27/23 History Fluoride (Sodium) [Sodium Fluoride 1 applic DENTAL HS 12/10/22 01/27/23 History 5000 Plus] Metoclopramide [Reglan] 5 mg PO ACHS PRN 12/10/22 01/27/23 History Pantoprazole [Protonix] 40 mg PO BID 12/10/22 01/27/23 History Sucralfate [Carafate] 1 gm PO BID 12/10/22 01/27/23 History metFORMIN HCL 1,000 mg PO BID 12/10/22 01/27/23 History Dicyclomine [Bentyl] 10 mg PO TID PRN 01/27/23 01/27/23 History Empagliflozin [Jardiance] 10 mg PO DAILY 01/27/23 01/27/23 History Metoclopramide [Reglan] 10 mg PO TID PRN 01/27/23 01/27/23 History Naproxen [EC-Naprosyn] 500 mg PO BID PRN 01/27/23 01/27/23 History Nitrofurantoin Monohyd/M-Cryst 100 mg PO Q12HR 01/27/23 01/27/23 History [Macrobid] Ezw-Gnlj-Jldwq Acid 1 cap PO DAILY 01/27/23 01/27/23 History [-U Capsule (formulary)] Allergies Allergy/AdvReac Type Severity Reaction Status Date / Time bee pollen Allergy Severe Anaphylaxis Verified 01/27/23 08:00 haloperidol lactate Allergy Severe QUIT Verified 01/27/23 08:00 [From Haldol] BREATHING latex Allergy Severe RASH-THROAT Verified 01/27/23 08:00 CLOSES murrieta Allergy Anaphylaxis Verified 01/27/23 08:00 coconut Allergy Anaphylaxis Verified 01/27/23 08:00 pineapple Allergy Anaphylaxis Verified 01/27/23 08:00 spider venom Allergy Swelling Verified 01/27/23 08:00 Sulfa (Sulfonamide Allergy Anaphylaxis Verified 01/27/23 08:00 Antibiotics) venom-wasp Allergy Swelling Verified 01/27/23 08:00 venom-wasp protein Allergy Swelling Verified 01/27/23 08:00 promethazine HCl AdvReac Severe Nausea & Verified 01/27/23 08:00 [From Phenergan] Vomiting amoxicillin AdvReac Nausea & Verified 01/27/23 08:00 Vomiting ANTS Allergy Mild Anaphylaxis Uncoded 01/27/23 08:00 Physical Exam Vitals: Vital Signs Temp Pulse Pulse Resp BP BP Pulse Ox 01/27/23 08:53 97.8 F 92 16 111/75 97 01/27/23 06:22 94 16 110/66 95 01/27/23 04:00 61 16 123/79 97 01/26/23 23:28 98.0 F 74 16 152/107 100 Intake and Output 01/26/23 01/27/23 01/27/23 22:59 06:59 14:59 Other: Weight 99.79 kg 99.79 kg Results CBC & Chem 7: 01/27/23 00:16 01/27/23 00:16 Labs: Abnormal Lab Results - Last 24 Hours (Table) 01/27/23 01/27/23 Range/Units 00:16 00:16 RBC 3.62 L (3.80-5.40) m/uL Hgb 11.1 L (11.4-16.0) gm/dL Hct 32.4 L (34.0-46.0) % Chloride 108 H (98-107) mmol/L Carbon Dioxide 18 L (22-30) mmol/L Glucose 148 H (74-99) mg/dL Calcium 10.7 H (8.4-10.2) mg/dL Albumin 3.4 L (3.5-5.0) g/dL Lipase 1007 H (23-300) U/L Thrombosis Risk Factor Assmnt - Choose All That Apply Any of the Below Risk Factors Present?: No Other Risk Factors: No Other congenital or acquired thrombophilia - If yes, enter type in comment: No Thrombosis Risk Factor Assessment Level: Very Low Risk
[2023-01-27] MEDS ORDERED: ONDANSETRON 4 MG/2 ML VIAL IVP PRN (10:43)
[2023-01-27] MEDS ORDERED: ENOXAPARIN 40 MG/0.4 ML SYRINGE SQ SCH (10:45)
[2023-01-27] MEDS ORDERED: LACTATED RINGERS 1,000 ML IV SCH (10:45)
[2023-01-27] MEDS ORDERED: PANTOPRAZOLE 40 MG/10 ML VIAL IVP SCH (10:45)
[2023-01-27] MEDS ORDERED: INSULIN DETEMIR (LEVEMIR) 100 UNIT/ML SYR SQ SCH (10:45)
[2023-01-27 12:07] LABS: Glucose,Whole Blood 135 mg/dL (70-110)
[2023-01-27] MEDS: INSULIN ASPART (NovoLOG) 100 UNIT/ML VIAL SQ SCH ×2 (12:07→17:12)
[2023-01-27 13:26] VITALS: BP 120/84; PULSE 89
--- NOTE | 2023-01-27 15:03 | P.CONS ---
History of Present Illness - Reason for Consult Consult date: 01/27/23 Pancreatitis Requesting physician: Jarrell Avalos - Chief Complaint Abdominal pain - History of Present Illness This a pleasant 32-year-old female who presented to the emergency department with complaints of abdominal pain. She has a past medical history of recurrent pancreatitis with unknown etiology, diabetes mellitus, GERD, IBS, fatty liver disease, asthma, migraines, anxiety, depression, PTSD, current smoker. Patient came in with complaints of epigastric pain. Patient visits the emergency department quite frequently and has been seen several times this month and sent home. The patient's first occurrence of pancreatitis was about 5 years ago, she is followed with gastroenterology in the past and was referred on to [facility] for further testing. Patient has not been compliant with follow-ups. States pain started yesterday associated with nausea and vomiting. Mostly in the epigastric region. Patient was noted to have elevated lipase of 1007. She was admitted for IV fluids and pain medication. She states that she still has abdominal pain no further nausea or vomiting. Review of Systems REVIEW OF SYSTEMS: CARDIOPULMONARY: No chest pain or shortness of breath. Gastrointestinal: Epigastric pain. Nausea and vomiting. No hematemesis, coffee- ground emesis. No rectal bleeding, or melena. GENITOURINARY: No dysuria or hematuria. MUSCULOSKELETAL: Reports normal range of motion. Joint pain. SKIN: No rashes. No jaundice. ENDOCRINE: No chills, fevers. No excessive weight gain or loss. No polydipsia or polyuria. PSYCHIATRIC: Unremarkable. NEUROLOGY: No change in mental status. Denies dizziness, headache. ENT: Vision unremarkable. CONSTITUTIONAL: No recent weight loss. No fever, chills, night sweats. Past Medical History Past Medical History: Asthma, Diabetes Mellitus, GERD/Reflux Additional Past Medical History / Comment(s): migraines, degenerative disk disease, endometriosis, lupus, pancreatitis, DM2- insulin, gastroparesis History of Any Multi-Drug Resistant Organisms: None Reported Past Surgical History: Cholecystectomy, Orthopedic Surgery Additional Past Surgical History / Comment(s): laparoscopc surgery for endometriosis, cyst removed from left foot, EGD, Past Anesthesia/Blood Transfusion Reactions: Previous Problems w/ Anesthesia Additional Past Anesthesia/Blood Transfusion Reaction / Comm: hard to wake up for 48-72 hours after laparoscopic surgery-was in hosp. for 3 days Past Psychological History: Anxiety, Depression, PTSD Smoking Status: Former smoker, Vaper Past Alcohol Use History: None Reported Past Drug Use History: Marijuana - Past Family History Mother Family Medical History: Cancer Additional Family Medical History / Comment(s): Migraines, pancreatic cancer, . Father Family Medical History: Coronary Artery Disease (CAD), Hypertension Additional Family Medical History / Comment(s): ddd, alcoholism & drug use Medications and Allergies Home Medications Medication Instructions Recorded Confirmed Type Omeprazole 20 mg PO BID 11/16/21 01/27/23 History Acetaminophen [Tylenol Extra 500 mg PO Q4H PRN 03/30/22 01/27/23 History Strength] Insulin Aspart [NovoLOG Flexpen] See Protocol SQ TID-W/MEALS 03/30/22 01/27/23 History Insulin Glargine,Hum.rec.anlog 45 units SQ DAILY 03/30/22 01/27/23 History [Lantus Solostar Pen] Ondansetron Odt [Zofran ODT] 4 mg PO Q6H PRN 03/30/22 01/27/23 History tiZANidine [Zanaflex] 4 mg PO BID PRN 03/30/22 01/27/23 History Ibuprofen [Motrin] 800 mg PO Q8HR PRN #30 tab 06/07/22 01/27/23 Rx Albuterol Nebulized [Ventolin 2.5 mg INHALATION RT-Q4H PRN 09/18/22 01/27/23 History Nebulized] Insulin Aspart [NovoLOG Flexpen] 10 units SQ TID-W/MEALS 09/18/22 01/27/23 History Lipase/Protease/Amylase [Zenpep Dr 2 cap PO TID-W/MEALS 09/18/22 01/27/23 History 5,000 Unit Capsule] Pioglitazone [Actos] 30 mg PO DAILY 09/18/22 01/27/23 History Atorvastatin [Lipitor] 80 mg PO HS 10/27/22 01/27/23 History EPINEPHrine (Auto Inject) [Epipen] 0.3 mg IM DIRECTED PRN 10/27/22 01/27/23 History Fenofibrate [Lofibra] 160 mg PO DAILY 10/27/22 01/27/23 History QUEtiapine FUMARATE [SEROquel] 600 mg PO HS 11/09/22 01/27/23 History Fluoride (Sodium) [Sodium Fluoride 1 applic DENTAL HS 12/10/22 01/27/23 History 5000 Plus] Metoclopramide [Reglan] 5 mg PO ACHS PRN 12/10/22 01/27/23 History Pantoprazole [Protonix] 40 mg PO BID 12/10/22 01/27/23 History Sucralfate [Carafate] 1 gm PO BID 12/10/22 01/27/23 History metFORMIN HCL 1,000 mg PO BID 12/10/22 01/27/23 History Dicyclomine [Bentyl] 10 mg PO TID PRN 01/27/23 01/27/23 History Empagliflozin [Jardiance] 10 mg PO DAILY 01/27/23 01/27/23 History Metoclopramide [Reglan] 10 mg PO TID PRN 01/27/23 01/27/23 History Naproxen [EC-Naprosyn] 500 mg PO BID PRN 01/27/23 01/27/23 History Nitrofurantoin Monohyd/M-Cryst 100 mg PO Q12HR 01/27/23 01/27/23 History [Macrobid] Xnt-Dogu-Uxyvx Acid 1 cap PO DAILY 01/27/23 01/27/23 History [-U Capsule (formulary)] Allergies Allergy/AdvReac Type Severity Reaction Status Date / Time bee pollen Allergy Severe Anaphylaxis Verified 01/27/23 08:00 haloperidol lactate Allergy Severe QUIT Verified 01/27/23 08:00 [From Haldol] BREATHING latex Allergy Severe RASH-THROAT Verified 01/27/23 08:00 CLOSES murrieta Allergy Anaphylaxis Verified 01/27/23 08:00 coconut Allergy Anaphylaxis Verified 01/27/23 08:00 pineapple Allergy Anaphylaxis Verified 01/27/23 08:00 spider venom Allergy Swelling Verified 01/27/23 08:00 Sulfa (Sulfonamide Allergy Anaphylaxis Verified 01/27/23 08:00 Antibiotics) venom-wasp Allergy Swelling Verified 01/27/23 08:00 venom-wasp protein Allergy Swelling Verified 01/27/23 08:00 promethazine HCl AdvReac Severe Nausea & Verified 01/27/23 08:00 [From Phenergan] Vomiting amoxicillin AdvReac Nausea & Verified 01/27/23 08:00 Vomiting ANTS Allergy Mild Anaphylaxis Uncoded 01/27/23 08:00 Physical Exam Vitals: Vital Signs Temp Pulse Resp BP Pulse Ox 01/27/23 06:22 94 16 110/66 95 01/27/23 04:00 61 16 123/79 97 01/26/23 23:28 98.0 F 74 16 152/107 100 Intake and Output 01/26/23 01/27/23 01/27/23 22:59 06:59 14:59 Other: Weight 99.79 kg General appearance: The patient is alert, oriented, appears in no acute distress. Obese. HET: Head is normocephalic and atraumatic. Conjunctiva pink. Sclera anicteric. Neck: Supple without lymphadenopathy. Trachea midline. Heart: Regular. Lungs: Equal expansion, normal respiratory effort. Abdomen: Soft, epigastric tenderness, nondistended with bowel sounds. No guarding or rigidity. Skin: No rashes. No jaundice. Extremities: Normal skin color and turgor. No pedal edema. Neurological: No focal deficits. Alert and oriented x3. Results CBC & Chem 7: 01/27/23 00:16 01/27/23 00:16 Labs: Abnormal Lab Results - Last 24 Hours (Table) 01/27/23 01/27/23 Range/Units 00:16 00:16 RBC 3.62 L (3.80-5.40) m/uL Hgb 11.1 L (11.4-16.0) gm/dL Hct 32.4 L (34.0-46.0) % Chloride 108 H (98-107) mmol/L Carbon Dioxide 18 L (22-30) mmol/L Glucose 148 H (74-99) mg/dL Calcium 10.7 H (8.4-10.2) mg/dL Albumin 3.4 L (3.5-5.0) g/dL Lipase 1007 H (23-300) U/L Assessment and Plan (1) Pancreatitis Narrative/Plan: A 32-year-old female with multiple visits to the emergency department for abdominal pain presented with epigastric pain that started yesterday. Patient had elevated lipase. Has a history of recurrent pancreatitis of unknown etiology. Patient supposed be following with [facility] but has been n oncompliant. Workup has been in progress from [facility]. Recommend aggressive IV hydration, pain management and antiemetics. No further workup indicated. Patient is to follow with [facility] specialist. Current Visit: Yes Status: Acute Code(s): K85.90 - ACUTE PANCREATITIS WITHOUT NECROSIS OR INFECTION, UNSP SNOMED Code(s): 30497860 (2) Abdominal pain Current Visit: No Status: Acute Code(s): R10.9 - UNSPECIFIED ABDOMINAL PAIN SNOMED Code(s): 84720566 Plan: 1. Continue symptomatic and supportive care 2. Pain management per primary medical team 3. Antiemetics as needed 4. Aggressive IV hydration 5. Nothing by mouth except for ice chips 6. No further workup indicated 7. Recommend outpatient follow-up with [facility] specialists, medical compliance Thank you for this consultation, we will continue to follow. Dr. Aldo Bocanegra I agree with the dictator's note, documented as a scribe by Roxana Torres.
[2023-01-27 17:19] LABS: Glucose,Whole Blood 99 mg/dL (70-110)
[2023-01-27] MEDS ORDERED: QUEtiapine 200 MG TAB PO SCH (21:00)
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
== END 2023-01-27 17:42 | disposition left against medical advice (07) ==
LOC: EC 23:26 → INTOOBSV 01-27 01:08 → 5NMEDONC 01-27 01:08 → 1SOBS 01-27 05:25 → UNDODISIN 01-27 17:42
PROVIDERS: ADMIT Hospitalist; ATTEND Hospitalist
DX: K85.00 Idiopathic acute pancreatitis without necrosis or infection (principal); K86.1 Other chronic pancreatitis; E87.20 Acidosis, unspecified; K21.9 Gastro-esophageal reflux disease without esophagitis; J45.909 Unspecified asthma, uncomplicated; E11.43 Type 2 diabetes mellitus with diabetic autonomic (poly)neuropathy; K31.84 Gastroparesis; F41.9 Anxiety disorder, unspecified; F32.A Depression, unspecified; E78.5 Hyperlipidemia, unspecified; F17.290 Nicotine dependence, other tobacco product, uncomplicated; Z79.4 Long term (current) use of insulin; Z79.84 Long term (current) use of oral hypoglycemic drugs; Z79.899 Other long term (current) drug therapy; Z88.0 Allergy status to penicillin; Z88.2 Allergy status to sulfonamides; Z91.040 Latex allergy status; Z53.29 Procedure and treatment not carried out because of patient's decision for other reasons
CPT/HCPCS: 96361 ×2; 96365; 96372; 96375 ×2; 99285; 36415; 80053; 83690; 85025; G0378; J2270; J1200; J2405; J1650; J0131; J1885; C9113; 96374

== ENCOUNTER 2023-01-31 19:50 | Emergency (ER) | payer OTHER ==
[2023-01-31] MEDS ORDERED: ONDANSETRON 4 MG/2 ML VIAL IVP STA (22:58)
[2023-01-31] MEDS ORDERED: SODIUM CHLORIDE 0.9% 1,000 ML IV STA (22:58)
[2023-01-31] MEDS ORDERED: MORPHINE SULFATE 4 MG/ML SYRINGE IM STA (23:01)
--- NOTE | 2023-01-31 23:01 | ED ---
Abdominal Pain HPI - General Chief Complaint: Abdominal Pain Stated Complaint: abd pain Time Seen by Provider: 01/31/23 20:05 Source: patient Mode of arrival: ambulatory Limitations: no limitations - History of Present Illness Initial Comments: 32 year old female well-known to the emergency department who presents with upper quadrant abdominal pain. She has history of pancreatitis, endometriosis and chronic abdominal pain. States that the pain started earlier today. She has not taken anything for the pain. Admits associated nausea without vomiting. No hematemesis. No diarrhea, consultation, black or bloody stools. No dysuria, hematuria or difficulty voiding. Denies concern for as she is in a homosexual relationship. Patient was recently hospitalized for pancreatitis and left AGAINST MEDICAL ADVICE. She denies any fevers. No other alleviating, precipitating or modifying factors - Related Data Home Medications Medication Instructions Recorded Confirmed Omeprazole 20 mg PO BID 11/16/21 01/27/23 Acetaminophen [Tylenol Extra 500 mg PO Q4H PRN 03/30/22 01/27/23 Strength] Insulin Aspart [NovoLOG Flexpen] See Protocol SQ TID-W/MEALS 03/30/22 01/27/23 Insulin Glargine,Hum.rec.anlog 45 units SQ DAILY 03/30/22 01/27/23 [Lantus Solostar Pen] Ondansetron Odt [Zofran ODT] 4 mg PO Q6H PRN 03/30/22 01/27/23 tiZANidine [Zanaflex] 4 mg PO BID PRN 03/30/22 01/27/23 Albuterol Nebulized [Ventolin 2.5 mg INHALATION RT-Q4H PRN 09/18/22 01/27/23 Nebulized] Insulin Aspart [NovoLOG Flexpen] 10 units SQ TID-W/MEALS 09/18/22 01/27/23 Lipase/Protease/Amylase [Zenpep Dr 2 cap PO TID-W/MEALS 09/18/22 01/27/23 5,000 Unit Capsule] Pioglitazone [Actos] 30 mg PO DAILY 09/18/22 01/27/23 Atorvastatin [Lipitor] 80 mg PO HS 10/27/22 01/27/23 EPINEPHrine (Auto Inject) [Epipen] 0.3 mg IM DIRECTED PRN 10/27/22 01/27/23 Fenofibrate [Lofibra] 160 mg PO DAILY 10/27/22 01/27/23 QUEtiapine FUMARATE [SEROquel] 600 mg PO HS 11/09/22 01/27/23 Fluoride (Sodium) [Sodium Fluoride 1 applic DENTAL HS 12/10/22 01/27/23 5000 Plus] Metoclopramide [Reglan] 5 mg PO ACHS PRN 12/10/22 01/27/23 Pantoprazole [Protonix] 40 mg PO BID 12/10/22 01/27/23 Sucralfate [Carafate] 1 gm PO BID 12/10/22 01/27/23 metFORMIN HCL 1,000 mg PO BID 12/10/22 01/27/23 Dicyclomine [Bentyl] 10 mg PO TID PRN 01/27/23 01/27/23 Empagliflozin [Jardiance] 10 mg PO DAILY 01/27/23 01/27/23 Metoclopramide [Reglan] 10 mg PO TID PRN 01/27/23 01/27/23 Naproxen [EC-Naprosyn] 500 mg PO BID PRN 01/27/23 01/27/23 Nitrofurantoin Monohyd/M-Cryst 100 mg PO Q12HR 01/27/23 01/27/23 [Macrobid] Ili-Dqzn-Rswmj Acid 1 cap PO DAILY 01/27/23 01/27/23 [-U Capsule (formulary)] Previous Rx's Medication Instructions Recorded Ibuprofen [Motrin] 800 mg PO Q8HR PRN #30 tab 06/07/22 Allergies Allergy/AdvReac Type Severity Reaction Status Date / Time bee pollen Allergy Severe Anaphylaxis Verified 01/31/23 20:16 haloperidol lactate Allergy Severe QUIT Verified 01/31/23 20:16 [From Haldol] BREATHING latex Allergy Severe RASH-THROAT Verified 01/31/23 20:16 CLOSES [place] Allergy Anaphylaxis Verified 01/31/23 20:16 coconut Allergy Anaphylaxis Verified 01/31/23 20:16 pineapple Allergy Anaphylaxis Verified 01/31/23 20:16 spider venom Allergy Swelling Verified 01/31/23 20:16 Sulfa (Sulfonamide Allergy Anaphylaxis Verified 01/31/23 20:16 Antibiotics) venom-wasp Allergy Swelling Verified 01/31/23 20:16 venom-wasp protein Allergy Swelling Verified 01/31/23 20:16 promethazine HCl AdvReac Severe Nausea & Verified 01/31/23 20:16 [From Phenergan] Vomiting amoxicillin AdvReac Nausea & Verified 01/31/23 20:16 Vomiting ANTS Allergy Mild Anaphylaxis Uncoded 01/27/23 08:00 Review of Systems ROS Statement: Those systems with pertinent positive or pertinent negative responses have been documented in the HPI. ROS Other: All systems not noted in ROS Statement are negative. Past Medical History Past Medical History: Asthma, Diabetes Mellitus, GERD/Reflux Additional Past Medical History / Comment(s): migraines, degenerative disk disease, endometriosis, lupus, pancreatitis, DM2- insulin, gastroparesis History of Any Multi-Drug Resistant Organisms: None Reported Past Surgical History: Cholecystectomy, Orthopedic Surgery Additional Past Surgical History / Comment(s): laparoscopc surgery for endometriosis, cyst removed from left foot, EGD, Past Anesthesia/Blood Transfusion Reactions: Previous Problems w/ Anesthesia Additional Past Anesthesia/Blood Transfusion Reaction / Comment(s): hard to wake up for 48-72 hours after laparoscopic surgery-was in hosp. for 3 days Past Psychological History: Anxiety, Depression, PTSD Smoking Status: Former smoker, Vaper Past Alcohol Use History: None Reported Past Drug Use History: Marijuana - Past Family History Mother Family Medical History: Cancer Additional Family Medical History / Comment(s): Migraines, pancreatic cancer, . Father Family Medical History: Coronary Artery Disease (CAD), Hypertension Additional Family Medical History / Comment(s): ddd, alcoholism & drug use General Exam Limitations: no limitations General appearance: alert, in no apparent distress Head exam: Present: atraumatic, normocephalic, normal inspection Eye exam: Present: normal appearance, PERRL, EOMI. Absent: scleral icterus, conjunctival injection, periorbital swelling ENT exam: Present: normal exam, mucous membranes moist Neck exam: Present: normal inspection. Absent: tenderness, meningismus, lymphadenopathy Respiratory exam: Present: normal lung sounds bilaterally. Absent: respiratory distress, wheezes, rales, rhonchi, stridor Cardiovascular Exam: Present: normal rhythm, tachycardia, normal heart sounds. Absent: systolic murmur, diastolic murmur, rubs, gallop, clicks GI/Abdominal exam: Present: soft, normal bowel sounds. Absent: distended, tenderness, guarding, rebound, rigid Extremities exam: Present: normal inspection, full ROM, normal capillary refill. Absent: tenderness, pedal edema, joint swelling, calf tenderness Back exam: Present: normal inspection Neurological exam: Present: alert, oriented X3, CN II-XII intact Psychiatric exam: Present: normal affect, normal mood Skin exam: Present: warm, dry, intact, normal color. Absent: rash Course Vital Signs 01/31/23 02/01/23 20:14 00:17 Temperature 98.9 F 98.7 F Pulse Rate 125 H 98 Respiratory 18 16 Rate Blood Pressure 169/119 138/93 O2 Sat by Pulse 98 96 Oximetry Medical Decision Making - Medical Decision Making Was pt. sent in by a medical professional or institution (, PA, THERAPY ASSISTANT, urgent care, hospital, or detention...) When possible be specific @ -No Did you speak to anyone other than the patient for history (EMS, parent, family, police, friend...)? What history was obtained from this source @ -No Did you review nursing and triage notes (agree or disagree)? Why? @ -I reviewed and agree with nursing and triage notes Were old charts reviewed (outside hosp., previous admission, EMS record, old EKG, old radiological studies, urgent care reports/EKG's, detention records)? Report findings @ -I reviewed recent discharge summary the Differential Diagnosis (chest pain, altered mental status, abdominal pain women, abdominal pain men, vaginal bleeding, weakness, fever, dyspnea, syncope, headache, dizziness, GI bleed, back pain, seizure, CVA, palpatations, mental health, musculoskeletal)? @ -Differential Abdominal Pain Women: Appendicitis, Cholecystitis, diverticulosis, ischemic bowel, pancreatitis, hepatitis, UTI, gastroenteritis, AAA, incarcerated hernia, bowel obstruction, constipation, inflammatory bowel, hepatitis, peptic ulcer disease, splenic infarction, perforated viscus, vulvitis, ovarian torsion, PID, kidney stone, placenta abruption, this is not meant to be an all-inclusive list EKG interpreted by me (3pts min.). @ -Not done X-rays interpreted by me (1pt min.). @ -None done CT interpreted by me (1pt min.). @ -None done U/S interpreted by me (1pt. min.). @ -None done What testing was considered but not performed or refused? (CT, X-rays, U/S, labs)? Why? @ -None What meds were considered but not given or refused? Why? @ -None Did you discuss the management of the patient with other professionals (professionals i.e. , PA, THERAPY ASSISTANT, lab, RT, psych nurse, nephrology social worker, freight car inspector, teacher, mortgage loan officer originator, employment evaluator/case manager)? Give summary @ -No Was smoking cessation discussed for >3mins.? @ -No Was critical care preformed (if so, how long)? @ -No Were there social determinants of health that impacted care today? How? (Homelessness, low income, unemployed, alcoholism, drug addiction, transportation, low edu. Level, literacy, decrease access to med. care, [facility], rehab)? @ -No Was there de-escalation of care discussed even if they declined (Discuss DNR or withdrawal of care, Hospice)? DNR status @ -No What co-morbidities impacted this encounter? (DM, HTN, Smoking, COPD, CAD, Cancer, CVA, ARF, Chemo, Hep., AIDS, mental health diagnosis, sleep apnea, morbid obesity)? @ -Chronic abdominal pain Was patient admitted / discharged? Hospital course, mention meds given and route, prescriptions, significant lab abnormalities, going to OR and other pertinent info. @ -Upon arrival patient was placed in room 18. A thorough history and physical exam was performed. Laboratory studies are conducted. Patient does not have an elevated lipase at this time. Laboratory studies within normal limits. She was given morphine and continues to have pain. She was then given Benadryl and Toradol. Patient will be discharged home at this time and instructed follow up with her primary care doctor. Undiagnosed new problem with uncertain prognosis? @ -No Drug Therapy requiring intensive monitoring for toxicity (Heparin, Nitro, Insulin, Cardizem)? @ -No Were any procedures done? @ -No Diagnosis/symptom? @ -Acute exacerbation of chronic abdominal pain Acute, or Chronic, or Acute on Chronic? @ -Acute on chronic Uncomplicated (without systemic symptoms) or Complicated (systemic symptoms)? @ -Complicated Side effects of treatment? @ -No Exacerbation, Progression, or Severe Exacerbation? @ -Yes Poses a threat to life or bodily function? How? (Chest pain, [place], [place], pneumonia, PE, COPD, DKA, ARF, appy, cholecystitis, CVA, Diverticulitis, Homicidal, Suicidal, threat to staff... and all critical care pts) @ -No - Lab Data Result diagrams: 01/31/23 23:11 01/31/23 23:11 Lab Results 01/31/23 01/31/23 Range/Units 23:11 23:11 WBC 5.7 (3.8-10.6) k/uL RBC 4.34 (3.80-5.40) m/uL Hgb 12.8 (11.4-16.0) gm/dL Hct 38.9 (34.0-46.0) % MCV 89.7 (80.0-100.0) fL MCH 29.4 (25.0-35.0) pg MCHC 32.8 (31.0-37.0) g/dL RDW 15.1 (11.5-15.5) % Plt Count 269 (150-450) k/uL MPV 8.5 Neutrophils % 54 % Lymphocytes % 36 % Monocytes % 4 % Eosinophils % 4 % Basophils % 0 % Neutrophils # 3.1 (1.3-7.7) k/uL Lymphocytes # 2.1 (1.0-4.8) k/uL Monocytes # 0.2 (0-1.0) k/uL Eosinophils # 0.2 (0-0.7) k/uL Basophils # 0.0 (0-0.2) k/uL Sodium 135 L (137-145) mmol/L Potassium 4.5 (3.5-5.1) mmol/L Chloride 105 (98-107) mmol/L Carbon Dioxide 18 L (22-30) mmol/L Anion Gap 12 mmol/L BUN 8 (7-17) mg/dL Creatinine 0.49 L (0.52-1.04) mg/dL Est GFR (CKD-EPI)AfAm >90 (>60 ml/min/1.73 sqM) Est GFR (CKD-EPI)NonAf >90 (>60 ml/min/1.73 sqM) Glucose 148 H (74-99) mg/dL Calcium 11.2 H (8.4-10.2) mg/dL Total Bilirubin 0.8 (0.2-1.3) mg/dL AST 42 H (14-36) U/L ALT 30 (4-34) U/L Alkaline Phosphatase 75 (38-126) U/L Total Protein 7.9 (6.3-8.2) g/dL Albumin 3.9 (3.5-5.0) g/dL Lipase 196 (23-300) U/L Disposition Clinical Impression: Abdominal pain Disposition: HOME SELF-CARE Condition: Stable Instructions (If sedation given, give patient instructions): Abdominal Pain (ED) Is patient prescribed a controlled substance at d/c from ED?: No Referrals: Isi Carolina MD [Primary Care Provider] - 1-2 days Time of Disposition: 23:58
[2023-01-31] MEDS ORDERED: MORPHINE SULFATE 4 MG/ML SYRINGE IVP STA (23:19)
[2023-01-31 23:35] LABS: ALT 30 U/L (4-34); AST 42 U/L (14-36); African American GFR (CKD) >90 (>60 ml/min/1.73 sqM); Albumin 3.9 g/dL (3.5-5.0); Alkaline Phosphatase 75 U/L (38-126); Anion Gap 12 mmol/L; Basophils % (A) 0 %; Blood Urea Nitrogen 8 mg/dL (7-17); Calcium 11.2 mg/dL (8.4-10.2); Carbon Dioxide 18 mmol/L (22-30); Chloride 105 mmol/L (98-107); Eosinophils # (A) 0.2 k/uL (0-0.7); Eosinophils % (A) 4 %; Glucose 148 mg/dL (74-99); HCT 38.9 % (34.0-46.0); HGB 12.8 gm/dL (11.4-16.0); Lipase 196 U/L (23-300); Lymphocytes # (A) 2.1 k/uL (1.0-4.8); Lymphocytes % (A) 36 %; MCH 29.4 pg (25.0-35.0); MCHC 32.8 g/dL (31.0-37.0); MCV 89.7 fL (80.0-100.0); Mean Platelet Volume 8.5; Monocytes # (A) 0.2 k/uL (0-1.0); Monocytes % (A) 4 %; Neutrophils # (A) 3.1 k/uL (1.3-7.7); Neutrophils % (A) 54 %; Non-African American GFR(CKD) >90 (>60 ml/min/1.73 sqM); Platelet Count 269 k/uL (150-450); Potassium 4.5 mmol/L (3.5-5.1); RBC 4.34 m/uL (3.80-5.40); RDW 15.1 % (11.5-15.5); Sodium 135 mmol/L (137-145); Total Bilirubin 0.8 mg/dL (0.2-1.3); Total Protein 7.9 g/dL (6.3-8.2); WBC 5.7 k/uL (3.8-10.6)
[2023-02-01] MEDS ORDERED: diphenhydrAMINE 50 MG/ML 1 ML VIAL IVP STA (00:04)
[2023-02-01] MEDS ORDERED: KETOROLAC 15 MG/ML 1 ML VIAL IVP STA (00:04)
[2023-02-01 00:31] VITALS: BP 138/93; PULSE 98; RESP 16; TEMP 98.7
== END 2023-02-01 00:18 | disposition home or self-care (01) ==
LOC: EC 19:50
DX: R10.10 Upper abdominal pain, unspecified (principal); E11.9 Type 2 diabetes mellitus without complications; K21.9 Gastro-esophageal reflux disease without esophagitis; J45.909 Unspecified asthma, uncomplicated; F41.9 Anxiety disorder, unspecified; F32.A Depression, unspecified; F12.90 Cannabis use, unspecified, uncomplicated; F17.290 Nicotine dependence, other tobacco product, uncomplicated; Z79.84 Long term (current) use of oral hypoglycemic drugs; Z79.899 Other long term (current) drug therapy; Z79.4 Long term (current) use of insulin; Z88.2 Allergy status to sulfonamides; Z88.0 Allergy status to penicillin; Z91.018 Allergy to other foods; Z88.8 Allergy status to other drugs, medicaments and biological substances; Z91.030 Bee allergy status; Z91.040 Latex allergy status
CPT/HCPCS: 36415; 80053; 83690; 85025; 99284; 96374; 96375 ×3; 96361; J2270; J1200; J2405; J1885

== ENCOUNTER 2023-02-03 15:29 | Emergency (ER) | payer OTHER ==
--- NOTE | 2023-02-03 17:07 | ED ---
Abdominal Pain HPI - General Chief Complaint: Abdominal Pain Stated Complaint: abd pain Time Seen by Provider: 02/03/23 16:59 Source: patient, RN notes reviewed, old records reviewed Mode of arrival: ambulatory Limitations: no limitations - History of Present Illness Initial Comments: This is a 32-year-old female to the emergency department for evaluation today. Patient presents today for evaluation regards to abdominal pain known history of chronic abdominal pain presenting with reevaluation. Patient admits to multiple evaluations this week and states that she is been unable to keep down some of her pain medication at home but denying any change in life, no increase in life stressors no fevers no other complaints. Bowel pain is chronic. Patient was admitted a few days ago for pancreatitis. MD Complaint: abdominal pain -: days(s) Location: diffuse Radiation: none Migration to: no migration Severity: moderate Severity scale (1-10): 4 Quality: stabbing, aching Consistency: constant Improves With: nothing Worsens With: nothing Associated Symptoms: nausea Treatments Prior to Arrival: other (0) - Related Data Home Medications Medication Instructions Recorded Confirmed Omeprazole 20 mg PO BID 11/16/21 01/27/23 Acetaminophen [Tylenol Extra 500 mg PO Q4H PRN 03/30/22 01/27/23 Strength] Insulin Aspart [NovoLOG Flexpen] See Protocol SQ TID-W/MEALS 03/30/22 01/27/23 Insulin Glargine,Hum.rec.anlog 45 units SQ DAILY 03/30/22 01/27/23 [Lantus Solostar Pen] Ondansetron Odt [Zofran ODT] 4 mg PO Q6H PRN 03/30/22 01/27/23 tiZANidine [Zanaflex] 4 mg PO BID PRN 03/30/22 01/27/23 Albuterol Nebulized [Ventolin 2.5 mg INHALATION RT-Q4H PRN 09/18/22 01/27/23 Nebulized] Insulin Aspart [NovoLOG Flexpen] 10 units SQ TID-W/MEALS 09/18/22 01/27/23 Lipase/Protease/Amylase [Zenpep Dr 2 cap PO TID-W/MEALS 09/18/22 01/27/23 5,000 Unit Capsule] Pioglitazone [Actos] 30 mg PO DAILY 09/18/22 01/27/23 Atorvastatin [Lipitor] 80 mg PO HS 10/27/22 01/27/23 EPINEPHrine (Auto Inject) [Epipen] 0.3 mg IM DIRECTED PRN 10/27/22 01/27/23 Fenofibrate [Lofibra] 160 mg PO DAILY 10/27/22 01/27/23 QUEtiapine FUMARATE [SEROquel] 600 mg PO HS 11/09/22 01/27/23 Fluoride (Sodium) [Sodium Fluoride 1 applic DENTAL HS 12/10/22 01/27/23 5000 Plus] Metoclopramide [Reglan] 5 mg PO ACHS PRN 12/10/22 01/27/23 Pantoprazole [Protonix] 40 mg PO BID 12/10/22 01/27/23 Sucralfate [Carafate] 1 gm PO BID 12/10/22 01/27/23 metFORMIN HCL 1,000 mg PO BID 12/10/22 01/27/23 Dicyclomine [Bentyl] 10 mg PO TID PRN 01/27/23 01/27/23 Empagliflozin [Jardiance] 10 mg PO DAILY 01/27/23 01/27/23 Metoclopramide [Reglan] 10 mg PO TID PRN 01/27/23 01/27/23 Naproxen [EC-Naprosyn] 500 mg PO BID PRN 01/27/23 01/27/23 Nitrofurantoin Monohyd/M-Cryst 100 mg PO Q12HR 01/27/23 01/27/23 [Macrobid] Iod-Vxpk-Aencs Acid 1 cap PO DAILY 01/27/23 01/27/23 [-U Capsule (formulary)] Previous Rx's Medication Instructions Recorded Ibuprofen [Motrin] 800 mg PO Q8HR PRN #30 tab 06/07/22 Acet/Diph/Lido/Uelg-Bmo-Xeh-Si 5 ml PO Q4-6H PRN #240 ml 02/12/23 [Tyl/Benadryl/Lido/Maalox] Acet/Diph/Lido/Ypez-Mol-Nfq-Si 5 ml PO Q4-6H PRN #240 ml 02/12/23 [Tyl/Benadryl/Lido/Maalox] Albuterol Nebulized [Ventolin 2.5 mg INHALATION Q4H 8 Days #150 02/13/23 Nebulized] ml Albuterol Nebulized [Ventolin 2.5 mg INHALATION Q4H PRN #75 ml 02/13/23 Nebulized] methylPREDNISolone Dose Pack 4 mg PO DIRECTED #1 packet 02/13/23 [Medrol Dose Pack] methylPREDNISolone Dose Pack 4 mg PO DIRECTED #21 tab 02/13/23 [Medrol Dose Pack] Allergies Allergy/AdvReac Type Severity Reaction Status Date / Time bee pollen Allergy Severe Anaphylaxis Verified 02/13/23 16:42 haloperidol lactate Allergy Severe QUIT Verified 02/13/23 16:42 [From Haldol] BREATHING latex Allergy Severe RASH-THROAT Verified 02/13/23 16:42 CLOSES [place] Allergy Anaphylaxis Verified 02/13/23 16:42 coconut Allergy Anaphylaxis Verified 02/13/23 16:42 pineapple Allergy Anaphylaxis Verified 02/13/23 16:42 spider venom Allergy Swelling Verified 02/13/23 16:42 Sulfa (Sulfonamide Allergy Anaphylaxis Verified 02/13/23 16:42 Antibiotics) venom-wasp Allergy Swelling Verified 02/13/23 16:42 venom-wasp protein Allergy Swelling Verified 02/13/23 16:42 promethazine HCl AdvReac Severe Nausea & Verified 02/13/23 16:42 [From Phenergan] Vomiting amoxicillin AdvReac Nausea & Verified 02/13/23 16:42 Vomiting ANTS Allergy Mild Anaphylaxis Uncoded 02/13/23 16:42 Review of Systems ROS Statement: Those systems with pertinent positive or pertinent negative responses have been documented in the HPI. ROS Other: All systems not noted in ROS Statement are negative. Past Medical History Past Medical History: Asthma, Diabetes Mellitus, GERD/Reflux Additional Past Medical History / Comment(s): migraines, degenerative disk disease, endometriosis, lupus, pancreatitis, DM2- insulin, gastroparesis History of Any Multi-Drug Resistant Organisms: None Reported Past Surgical History: Cholecystectomy, Orthopedic Surgery Additional Past Surgical History / Comment(s): laparoscopc surgery for endometriosis, cyst removed from left foot, EGD, Past Anesthesia/Blood Transfusion Reactions: Previous Problems w/ Anesthesia Additional Past Anesthesia/Blood Transfusion Reaction / Comment(s): hard to wake up for 48-72 hours after laparoscopic surgery-was in hosp. for 3 days Past Psychological History: Anxiety, Depression, PTSD Smoking Status: Former smoker, Vaper Past Alcohol Use History: None Reported Past Drug Use History: Marijuana - Past Family History Mother Family Medical History: Cancer Additional Family Medical History / Comment(s): Migraines, pancreatic cancer, . Father Family Medical History: Coronary Artery Disease (CAD), Hypertension Additional Family Medical History / Comment(s): ddd, alcoholism & drug use General Exam General appearance: alert, in no apparent distress Head exam: Present: atraumatic, normocephalic, normal inspection Eye exam: Present: normal appearance, PERRL, EOMI. Absent: scleral icterus, conjunctival injection, periorbital swelling ENT exam: Present: normal exam, mucous membranes moist Neck exam: Present: normal inspection. Absent: tenderness, meningismus, lymphadenopathy Respiratory exam: Present: normal lung sounds bilaterally. Absent: respiratory distress, wheezes, rales, rhonchi, stridor Cardiovascular Exam: Present: regular rate, normal rhythm, normal heart sounds. Absent: systolic murmur, diastolic murmur, rubs, gallop, clicks GI/Abdominal exam: Present: soft, normal bowel sounds. Absent: distended, tenderness, guarding, rebound, rigid Extremities exam: Present: normal inspection, full ROM, normal capillary refill. Absent: tenderness, pedal edema, joint swelling, calf tenderness Back exam: Present: normal inspection Neurological exam: Present: alert, oriented X3, CN II-XII intact Psychiatric exam: Present: normal affect, normal mood Skin exam: Present: warm, dry, intact, normal color. Absent: rash Course Vital Signs 02/03/23 02/03/23 15:37 17:44 Temperature 98.0 F 98.9 F Pulse Rate 110 H 77 Respiratory 16 18 Rate Blood Pressure 124/89 122/87 O2 Sat by Pulse 95 98 Oximetry - Reevaluation(s) Reevaluation #1: 02/03/23 17:38 Medical record is reviewed Reevaluation #2: 02/03/23 17:38 Patient symptoms didn't change Reevaluation #3: 02/03/23 17:38 Patient informed results questions answered Reevaluation #4: 02/03/23 17:38 Was pt. sent in by a medical professional or institution (, PA, SUGAR MIXER, urgent care, hospital, or care home...) When possible be specific @ -no Did you speak to anyone other than the patient for history (EMS, parent, family, police, friend...)? What history was obtained from this source @ -no Did you review nursing and triage notes (agree or disagree)? Why? @ -agree Are old charts reviewed (outside hosp., previous admission, EMS record, old EKG, old radiological studies, urgent care reports/EKG's, care home records)? Report findings @ -yes Differential Diagnosis (chest pain, altered mental status, abdominal pain women, abdominal pain men, vaginal bleeding, weakness, fever, dyspnea, syncope, headache, dizziness, GI bleed, back pain, seizure, CVA, palpatations, mental health, musculoskeletal)? @ -prior EKG interpreted by me (3pts min.). @ -yes X-rays interpreted by me (1pt min.). @ -yes CT interpreted by me (1pt min.). @ -no U/S interpreted by me (1pt. min.). @ -no What testing was considered but not performed or refused? (CT, X-rays, U/S, labs)? Why? @ -none What meds were considered but not given or refused? Why? @ -none Did you discuss the management of the patient with other professionals (professionals i.e. , PA, SUGAR MIXER, lab, RT, psych nurse, 7th grade social studies teacher, relocation associate, teacher, police patrol officer, case briefer)? Give summary @ -no Was smoking cessation discussed for >3mins.? @ -no Was critical care preformed (if so, how long)? @ -no Were there social determinants of health that impacted care today? How? (Homelessness, low income, unemployed, alcoholism, drug addiction, transportation, low edu. Level, literacy, decrease access to med. care, half-way, rehab)? @ -none Was there de-escalation of care discussed even if they declined (Discuss DNR or withdrawal of care, Hospice)? DNR status @ -no What co-morbidities impacted this encounter? (DM, HTN, Smoking, COPD, CAD, Cancer, CVA, ARF, Chemo, Hep., AIDS, mental health diagnosis, sleep apnea, morbid obesity)? @ -none Was patient admitted / discharged? Hospital course, mention meds given and route, prescriptions, significant lab abnormalities, going to OR and other pertinent info. @ - 32 female to the emergency department for evaluation today. Patient presents today for evaluation of bowel pain chronic bowel pain. Patient does have history of Pancreatitis. Patient's symptoms are improved here in the ER she'll be discharged home Discharge Undiagnosed new problem with uncertain prognosis? @ -no Drug Therapy requiring intensive monitoring for toxicity (Heparin, Nitro, Insulin, Cardizem)? @ -no Were any procedures done? @ -no Diagnosis/symptom? @ -Abdominal pain, chronic pain Acute, or Chronic, or Acute on Chronic? @ -Acute Uncomplicated (without systemic symptoms) or Complicated (systemic symptoms)? @ -Complicated Side effects of treatment? @ -no Exacerbation, Progression, or Severe Exacerbation? @ -exacerbation Poses a threat to life or bodily function? How? (Chest pain, [place], [place], pneumonia, PE, COPD, DKA, ARF, appy, cholecystitis, CVA, Diverticulitis, Homicidal, Suicidal, threat to staff... and all critical care pts) @ -no Reevaluation #5: 02/03/23 17:38 Differential Abdominal Pain Men: Appendicitis, cholecystitis, diverticulosis, ischemic bowel, pancreatitis, hepatitis, UTI, gastroenteritis, AAA, incarcerated hernia, bowel obstruction, constipation, inflammatory bowel, hepatitis, peptic ulcer disease, splenic infarction, perforated viscus, testicular torsion, this is not meant to be an all-inclusive list Medical Decision Making - Medical Decision Making 32 female to the emergency department for evaluation today. Patient presents today for evaluation of bowel pain chronic bowel pain. Patient does have history of Pancreatitis. Patient's symptoms are improved here in the ER she'll be discharged home Disposition Clinical Impression: Abdominal pain, Chronic pancreatitis Disposition: HOME SELF-CARE Condition: Good Instructions (If sedation given, give patient instructions): Abdominal Pain (ED) Is patient prescribed a controlled substance at d/c from ED?: No Referrals: Isi Carolina MD [Primary Care Provider] - 1-2 days Time of Disposition: 17:05
[2023-02-03] MEDS ORDERED: diphenhydrAMINE 50 MG CAP PO STA (17:10)
[2023-02-03] MEDS ORDERED: PROCHLORPERAZINE 10 MG TAB PO STA (17:10)
[2023-02-03] MEDS ORDERED: HYDROmorphone 1 MG/ML 1 ML SYRINGE IM STA (17:10)
[2023-02-03 18:01] VITALS: BP 122/87; PULSE 77; RESP 18; TEMP 98.9
== END 2023-02-03 17:58 | disposition home or self-care (01) ==
LOC: EC 15:29
DX: K86.1 Other chronic pancreatitis (principal); E11.9 Type 2 diabetes mellitus without complications; J45.909 Unspecified asthma, uncomplicated; K21.9 Gastro-esophageal reflux disease without esophagitis; F17.290 Nicotine dependence, other tobacco product, uncomplicated; F12.90 Cannabis use, unspecified, uncomplicated; F41.9 Anxiety disorder, unspecified; F32.A Depression, unspecified; Z79.4 Long term (current) use of insulin; Z79.84 Long term (current) use of oral hypoglycemic drugs; Z79.899 Other long term (current) drug therapy; Z91.030 Bee allergy status; Z88.2 Allergy status to sulfonamides; Z88.0 Allergy status to penicillin; Z91.018 Allergy to other foods; Z88.8 Allergy status to other drugs, medicaments and biological substances
CPT/HCPCS: 99284; 96372; S0183; J1170

== ENCOUNTER 2023-02-06 04:47 | Emergency (ER) | payer OTHER ==
[2023-02-06 05:16] VITALS: TEMP 98.5
[2023-02-06] MEDS ORDERED: MORPHINE SULFATE 4 MG/ML SYRINGE IM STA (05:43)
--- NOTE | 2023-02-06 05:46 | ED ---
General Adult HPI - General Chief complaint: Abdominal Pain Stated complaint: Abd Pain Time Seen by Provider: 02/06/23 05:26 Source: patient, RN notes reviewed, old records reviewed Mode of arrival: ambulatory Limitations: no limitations - History of Present Illness Initial comments: 32-year-old female with chronic headache, chronic abdominal pain presenting with similar symptoms to her persistent complaints. No fever. No vomiting. Patient had tried usual remedies at home for both her headache and abdominal pain and states that these were not working including tramadol, Tylenol, heating pack. No alarming features, symptoms are consistent with her chronic pain complaints. - Related Data Home Medications Medication Instructions Recorded Confirmed Omeprazole 20 mg PO BID 11/16/21 01/27/23 Acetaminophen [Tylenol Extra 500 mg PO Q4H PRN 03/30/22 01/27/23 Strength] Insulin Aspart [NovoLOG Flexpen] See Protocol SQ TID-W/MEALS 03/30/22 01/27/23 Insulin Glargine,Hum.rec.anlog 45 units SQ DAILY 03/30/22 01/27/23 [Lantus Solostar Pen] Ondansetron Odt [Zofran ODT] 4 mg PO Q6H PRN 03/30/22 01/27/23 tiZANidine [Zanaflex] 4 mg PO BID PRN 03/30/22 01/27/23 Albuterol Nebulized [Ventolin 2.5 mg INHALATION RT-Q4H PRN 09/18/22 01/27/23 Nebulized] Insulin Aspart [NovoLOG Flexpen] 10 units SQ TID-W/MEALS 09/18/22 01/27/23 Lipase/Protease/Amylase [Zenpep Dr 2 cap PO TID-W/MEALS 09/18/22 01/27/23 5,000 Unit Capsule] Pioglitazone [Actos] 30 mg PO DAILY 09/18/22 01/27/23 Atorvastatin [Lipitor] 80 mg PO HS 10/27/22 01/27/23 EPINEPHrine (Auto Inject) [Epipen] 0.3 mg IM DIRECTED PRN 10/27/22 01/27/23 Fenofibrate [Lofibra] 160 mg PO DAILY 10/27/22 01/27/23 QUEtiapine FUMARATE [SEROquel] 600 mg PO HS 11/09/22 01/27/23 Fluoride (Sodium) [Sodium Fluoride 1 applic DENTAL HS 12/10/22 01/27/23 5000 Plus] Metoclopramide [Reglan] 5 mg PO ACHS PRN 12/10/22 01/27/23 Pantoprazole [Protonix] 40 mg PO BID 12/10/22 01/27/23 Sucralfate [Carafate] 1 gm PO BID 12/10/22 01/27/23 metFORMIN HCL 1,000 mg PO BID 12/10/22 01/27/23 Dicyclomine [Bentyl] 10 mg PO TID PRN 01/27/23 01/27/23 Empagliflozin [Jardiance] 10 mg PO DAILY 01/27/23 01/27/23 Metoclopramide [Reglan] 10 mg PO TID PRN 01/27/23 01/27/23 Naproxen [EC-Naprosyn] 500 mg PO BID PRN 01/27/23 01/27/23 Nitrofurantoin Monohyd/M-Cryst 100 mg PO Q12HR 01/27/23 01/27/23 [Macrobid] Hrm-Hwsn-Pxwwo Acid 1 cap PO DAILY 01/27/23 01/27/23 [-U Capsule (formulary)] Previous Rx's Medication Instructions Recorded Ibuprofen [Motrin] 800 mg PO Q8HR PRN #30 tab 06/07/22 Allergies Allergy/AdvReac Type Severity Reaction Status Date / Time bee pollen Allergy Severe Anaphylaxis Verified 02/06/23 05:07 haloperidol lactate Allergy Severe QUIT Verified 02/06/23 05:07 [From Haldol] BREATHING latex Allergy Severe RASH-THROAT Verified 02/06/23 05:07 CLOSES [place] Allergy Anaphylaxis Verified 02/06/23 05:07 coconut Allergy Anaphylaxis Verified 02/06/23 05:07 pineapple Allergy Anaphylaxis Verified 02/06/23 05:07 spider venom Allergy Swelling Verified 02/06/23 05:07 Sulfa (Sulfonamide Allergy Anaphylaxis Verified 02/06/23 05:07 Antibiotics) venom-wasp Allergy Swelling Verified 02/06/23 05:07 venom-wasp protein Allergy Swelling Verified 02/06/23 05:07 promethazine HCl AdvReac Severe Nausea & Verified 02/06/23 05:07 [From Phenergan] Vomiting amoxicillin AdvReac Nausea & Verified 02/06/23 05:07 Vomiting ANTS Allergy Mild Anaphylaxis Uncoded 02/06/23 05:07 Review of Systems ROS Statement: Those systems with pertinent positive or pertinent negative responses have been documented in the HPI. ROS Other: All systems not noted in ROS Statement are negative. Past Medical History Past Medical History: Asthma, Diabetes Mellitus, GERD/Reflux Additional Past Medical History / Comment(s): migraines, degenerative disk disease, endometriosis, lupus, pancreatitis, DM2- insulin, gastroparesis History of Any Multi-Drug Resistant Organisms: None Reported Past Surgical History: Cholecystectomy, Orthopedic Surgery Additional Past Surgical History / Comment(s): laparoscopc surgery for endometriosis, cyst removed from left foot, EGD, Past Anesthesia/Blood Transfusion Reactions: Previous Problems w/ Anesthesia Additional Past Anesthesia/Blood Transfusion Reaction / Comment(s): hard to wake up for 48-72 hours after laparoscopic surgery-was in hosp. for 3 days Past Psychological History: Anxiety, Depression, PTSD Smoking Status: Former smoker, Vaper Past Alcohol Use History: None Reported Past Drug Use History: Marijuana - Past Family History Mother Family Medical History: Cancer Additional Family Medical History / Comment(s): Migraines, pancreatic cancer, . Father Family Medical History: Coronary Artery Disease (CAD), Hypertension Additional Family Medical History / Comment(s): ddd, alcoholism & drug use General Exam Limitations: no limitations General appearance: alert, in no apparent distress Head exam: Present: atraumatic, normocephalic Eye exam: Present: normal appearance, PERRL Neck exam: Present: normal inspection. Absent: tenderness, meningismus Respiratory exam: Present: normal lung sounds bilaterally. Absent: respiratory distress, wheezes Cardiovascular Exam: Present: regular rate, normal rhythm GI/Abdominal exam: Present: soft, tenderness (Minimal). Absent: distended, guarding, rebound Neurological exam: Present: alert Skin exam: Present: warm, dry, intact Course Vital Signs 02/06/23 05:05 Temperature 98.5 F Pulse Rate 105 H Respiratory 20 Rate Blood Pressure 121/87 O2 Sat by Pulse 96 Oximetry Medical Decision Making - Medical Decision Making Was pt. sent in by a medical professional or institution (, PA, RADIOLOGIC TECHNOLOGY INSTRUCTOR, urgent care, hospital, or detention...) When possible be specific @ -No Did you speak to anyone other than the patient for history (EMS, parent, family, police, friend...)? What history was obtained from this source @ -No Did you review nursing and triage notes (agree or disagree)? Why? @ -I reviewed and agree with nursing and triage notes Were old charts reviewed (outside hosp., previous admission, EMS record, old EKG, old radiological studies, urgent care reports/EKG's, detention records)? Report findings @ -No old charts were reviewed Differential Diagnosis (chest pain, altered mental status, abdominal pain women, abdominal pain men, vaginal bleeding, weakness, fever, dyspnea, syncope, headache, dizziness, GI bleed, back pain, seizure, CVA, palpatations, mental health, musculoskeletal)? @ -Chronic abdominal pain, chronic headache EKG interpreted by me (3pts min.). @ -As above X-rays interpreted by me (1pt min.). @ -None done CT interpreted by me (1pt min.). @ -None done U/S interpreted by me (1pt. min.). @ -None done What testing was considered but not performed or refused? (CT, X-rays, U/S, labs)? Why? @ -None What meds were considered but not given or refused? Why? @ -None Did you discuss the management of the patient with other professionals (professionals i.e. , PA, RADIOLOGIC TECHNOLOGY INSTRUCTOR, lab, RT, psych nurse, clinical social work therapist, guard entrance registrar, teacher, event security officer, lead case manager)? Give summary @ -No Was smoking cessation discussed for >3mins.? @ -No Was critical care preformed (if so, how long)? @ -No Were there social determinants of health that impacted care today? How? (Homelessness, low income, unemployed, alcoholism, drug addiction, transportation, low edu. Level, literacy, decrease access to med. care, alf, rehab)? @ -No Was there de-escalation of care discussed even if they declined (Discuss DNR or withdrawal of care, Hospice)? DNR status @ -No What co-morbidities impacted this encounter? (DM, HTN, Smoking, COPD, CAD, Cancer, CVA, ARF, Chemo, Hep., AIDS, mental health diagnosis, sleep apnea, morbid obesity)? @ -None Was patient admitted / discharged? Hospital course, mention meds given and route, prescriptions, significant lab abnormalities, going to OR and other pertinent info. @ -Patient has stable vitals. She seen her usual state of health. She has again complained of chronic headache and chronic abdominal pain. Patient given 1 dose of intramuscular pain medication and discharged home. Undiagnosed new problem with uncertain prognosis? @ -No Drug Therapy requiring intensive monitoring for toxicity (Heparin, Nitro, Insulin, Cardizem)? @ -No Were any procedures done? @ -No Diagnosis/symptom? @ Chronic pain Acute, or Chronic, or Acute on Chronic? @ Chronic Uncomplicated (without systemic symptoms) or Complicated (systemic symptoms)? @ -default Side effects of treatment? @ -No Exacerbation, Progression, or Severe Exacerbation? @ -No Poses a threat to life or bodily function? How? (Chest pain, [place], [place], pneumonia, PE, COPD, DKA, ARF, appy, cholecystitis, CVA, Diverticulitis, Homicidal, Suicidal, threat to staff... and all critical care pts) @ -No Disposition Clinical Impression: Abdominal pain of unknown etiology Disposition: HOME SELF-CARE Condition: Fair Instructions (If sedation given, give patient instructions): Abdominal Pain (ED) Is patient prescribed a controlled substance at d/c from ED?: No Referrals: Isi Carolina MD [Primary Care Provider] - 1-2 days Time of Disposition: 05:45
[2023-02-06 06:17] VITALS: BP 113/82; PULSE 96; RESP 17
== END 2023-02-06 06:05 | disposition home or self-care (01) ==
LOC: EC 04:47
DX: R10.9 Unspecified abdominal pain (principal); E11.9 Type 2 diabetes mellitus without complications; K21.9 Gastro-esophageal reflux disease without esophagitis; J45.909 Unspecified asthma, uncomplicated; F32.A Depression, unspecified; F41.9 Anxiety disorder, unspecified; F17.290 Nicotine dependence, other tobacco product, uncomplicated; F12.90 Cannabis use, unspecified, uncomplicated; Z88.2 Allergy status to sulfonamides; Z88.0 Allergy status to penicillin; Z88.8 Allergy status to other drugs, medicaments and biological substances; Z88.1 Allergy status to other antibiotic agents; Z91.030 Bee allergy status; Z91.040 Latex allergy status; Z91.018 Allergy to other foods; Z91.038 Other insect allergy status; Z90.49 Acquired absence of other specified parts of digestive tract; Z79.84 Long term (current) use of oral hypoglycemic drugs; Z79.4 Long term (current) use of insulin; Z79.899 Other long term (current) drug therapy
CPT/HCPCS: 99283; 96372; J2270

== ENCOUNTER 2023-02-07 12:59 | Emergency (ER) | payer OTHER ==
[2023-02-07 13:13] VITALS: TEMP 96.8
[2023-02-07 14:32] LABS: Basophils % (A) 0 %; Eosinophils # (A) 0.1 k/uL (0-0.7); Eosinophils % (A) 2 %; HCT 37.1 % (34.0-46.0); HGB 12.5 gm/dL (11.4-16.0); Lymphocytes # (A) 1.1 k/uL (1.0-4.8); Lymphocytes % (A) 27 %; MCH 30.4 pg (25.0-35.0); MCHC 33.8 g/dL (31.0-37.0); Mean Platelet Volume 8.4; Monocytes # (A) 0.1 k/uL (0-1.0); Monocytes % (A) 3 %; Neutrophils # (A) 2.7 k/uL (1.3-7.7); Neutrophils % (A) 67 %; Platelet Count 207 k/uL (150-450); RBC 4.13 m/uL (3.80-5.40); RDW 15.9 % (11.5-15.5); WBC 4.1 k/uL (3.8-10.6)
[2023-02-07 14:34] VITALS: RESP 20
[2023-02-07 14:47] LABS: ALT 26 U/L (4-34); African American GFR (CKD) >90 (>60 ml/min/1.73 sqM); Albumin 3.9 g/dL (3.5-5.0); Anion Gap 15 mmol/L; Blood Urea Nitrogen 6 mg/dL (7-17); Calcium 10.9 mg/dL (8.4-10.2); Carbon Dioxide 16 mmol/L (22-30); Chloride 107 mmol/L (98-107); Glucose 106 mg/dL (74-99); Lipase 108 U/L (23-300); Non-African American GFR(CKD) >90 (>60 ml/min/1.73 sqM); Sodium 138 mmol/L (137-145); Total Bilirubin 0.5 mg/dL (0.2-1.3); Total Protein 7.9 g/dL (6.3-8.2)
[2023-02-07 14:53] LABS: AST 32 U/L (14-36); Potassium 4.9 mmol/L (3.5-5.1)
[2023-02-07 14:54] LABS: Alkaline Phosphatase 85 U/L (38-126)
--- NOTE | 2023-02-07 15:43 | ED ---
General Adult HPI - General Chief complaint: Abdominal Pain Stated complaint: Abd/Head Pain Time Seen by Provider: 02/07/23 14:00 Source: patient Mode of arrival: ambulatory Limitations: no limitations - History of Present Illness Initial comments: Dictation was produced using [employer] dictation software. please excuse any grammatical, word or spelling errors. Chief Complaint: 32-year-old female well-known to emergency department presents with headache and abdominal pain History of Present Illness: Patient is a 32-year-old female she is here in emergency department often for evaluation of chronic headaches and chronic abdominal pain. She does have a history of pancreatitis. Patient was recently admitted and asked AMA approximately 10 days ago. The ROS documented in this emergency department record has been reviewed and co nfirmed by me. Those systems with pertinent positive or negative responses have been documented in the HPI. All other systems are other negative and/or noncontributory. - Related Data Home Medications Medication Instructions Recorded Confirmed Omeprazole 20 mg PO BID 11/16/21 01/27/23 Acetaminophen [Tylenol Extra 500 mg PO Q4H PRN 03/30/22 01/27/23 Strength] Insulin Aspart [NovoLOG Flexpen] See Protocol SQ TID-W/MEALS 03/30/22 01/27/23 Insulin Glargine,Hum.rec.anlog 45 units SQ DAILY 03/30/22 01/27/23 [Lantus Solostar Pen] Ondansetron Odt [Zofran ODT] 4 mg PO Q6H PRN 03/30/22 01/27/23 tiZANidine [Zanaflex] 4 mg PO BID PRN 03/30/22 01/27/23 Albuterol Nebulized [Ventolin 2.5 mg INHALATION RT-Q4H PRN 09/18/22 01/27/23 Nebulized] Insulin Aspart [NovoLOG Flexpen] 10 units SQ TID-W/MEALS 09/18/22 01/27/23 Lipase/Protease/Amylase [Zenpep Dr 2 cap PO TID-W/MEALS 09/18/22 01/27/23 5,000 Unit Capsule] Pioglitazone [Actos] 30 mg PO DAILY 09/18/22 01/27/23 Atorvastatin [Lipitor] 80 mg PO HS 10/27/22 01/27/23 EPINEPHrine (Auto Inject) [Epipen] 0.3 mg IM DIRECTED PRN 10/27/22 01/27/23 Fenofibrate [Lofibra] 160 mg PO DAILY 10/27/22 01/27/23 QUEtiapine FUMARATE [SEROquel] 600 mg PO HS 11/09/22 01/27/23 Fluoride (Sodium) [Sodium Fluoride 1 applic DENTAL HS 12/10/22 01/27/23 5000 Plus] Metoclopramide [Reglan] 5 mg PO ACHS PRN 12/10/22 01/27/23 Pantoprazole [Protonix] 40 mg PO BID 12/10/22 01/27/23 Sucralfate [Carafate] 1 gm PO BID 12/10/22 01/27/23 metFORMIN HCL 1,000 mg PO BID 12/10/22 01/27/23 Dicyclomine [Bentyl] 10 mg PO TID PRN 01/27/23 01/27/23 Empagliflozin [Jardiance] 10 mg PO DAILY 01/27/23 01/27/23 Metoclopramide [Reglan] 10 mg PO TID PRN 01/27/23 01/27/23 Naproxen [EC-Naprosyn] 500 mg PO BID PRN 01/27/23 01/27/23 Nitrofurantoin Monohyd/M-Cryst 100 mg PO Q12HR 01/27/23 01/27/23 [Macrobid] Gsg-Rkim-Jndmg Acid 1 cap PO DAILY 01/27/23 01/27/23 [-U Capsule (formulary)] Previous Rx's Medication Instructions Recorded Ibuprofen [Motrin] 800 mg PO Q8HR PRN #30 tab 06/07/22 Allergies Allergy/AdvReac Type Severity Reaction Status Date / Time bee pollen Allergy Severe Anaphylaxis Verified 02/06/23 05:07 haloperidol lactate Allergy Severe QUIT Verified 02/06/23 05:07 [From Haldol] BREATHING latex Allergy Severe RASH-THROAT Verified 02/06/23 05:07 CLOSES [place] Allergy Anaphylaxis Verified 02/06/23 05:07 coconut Allergy Anaphylaxis Verified 02/06/23 05:07 pineapple Allergy Anaphylaxis Verified 02/06/23 05:07 spider venom Allergy Swelling Verified 02/06/23 05:07 Sulfa (Sulfonamide Allergy Anaphylaxis Verified 02/06/23 05:07 Antibiotics) venom-wasp Allergy Swelling Verified 02/06/23 05:07 venom-wasp protein Allergy Swelling Verified 02/06/23 05:07 promethazine HCl AdvReac Severe Nausea & Verified 02/06/23 05:07 [From Phenergan] Vomiting amoxicillin AdvReac Nausea & Verified 02/06/23 05:07 Vomiting ANTS Allergy Mild Anaphylaxis Uncoded 02/06/23 05:07 Review of Systems ROS Statement: Those systems with pertinent positive or pertinent negative responses have been documented in the HPI. ROS Other: All systems not noted in ROS Statement are negative. Past Medical History Past Medical History: Asthma, Diabetes Mellitus, GERD/Reflux Additional Past Medical History / Comment(s): migraines, degenerative disk disease, endometriosis, lupus, pancreatitis, DM2- insulin, gastroparesis History of Any Multi-Drug Resistant Organisms: None Reported Past Surgical History: Cholecystectomy, Orthopedic Surgery Additional Past Surgical History / Comment(s): laparoscopc surgery for endometriosis, cyst removed from left foot, EGD, Past Anesthesia/Blood Transfusion Reactions: Previous Problems w/ Anesthesia Additional Past Anesthesia/Blood Transfusion Reaction / Comment(s): hard to wake up for 48-72 hours after laparoscopic surgery-was in hosp. for 3 days Past Psychological History: Anxiety, Depression, PTSD Smoking Status: Former smoker, Vaper Past Alcohol Use History: None Reported Past Drug Use History: Marijuana - Past Family History Mother Family Medical History: Cancer Additional Family Medical History / Comment(s): Migraines, pancreatic cancer, . Father Family Medical History: Coronary Artery Disease (CAD), Hypertension Additional Family Medical History / Comment(s): ddd, alcoholism & drug use General Exam - General Exam Comments Initial Comments: PHYSICAL EXAM: General Impression: Alert and oriented x3, not in acute distress HEENT: Normocephalic atraumatic, extra-ocular movements intact, pupils equal and reactive to light bilaterally, mucous membranes moist. Cardiovascular: Heart regular rate and rhythm Chest: Able to complete full sentences, no retractions, no tachypnea Musculoskeletal: Pulses present and equal in all extremities, no peripheral edema Motor: no focal deficits noted Neurological: CN II-XII grossly intact, no focal motor or sensory deficits noted Skin: Intact with no visualized rashes Psych: Normal affect and mood Limitations: no limitations Course Vital Signs 02/07/23 02/07/23 13:07 14:08 Temperature 96.8 F L Pulse Rate 119 H 110 H Respiratory 18 20 Rate Blood Pressure 137/93 140/95 O2 Sat by Pulse 97 98 Oximetry Medical Decision Making - Medical Decision Making Was pt. sent in by a medical professional or institution (, PA, FUSE SPOOLER, urgent care, hospital, or senior living...) When possible be specific @ -No Did you speak to anyone other than the patient for history (EMS, parent, family, police, friend...)? What history was obtained from this source @ -No Did you review nursing and triage notes (agree or disagree)? Why? @ -I reviewed and agree with nursing and triage notes Were old charts reviewed (outside hosp., previous admission, EMS record, old EKG, old radiological studies, urgent care reports/EKG's, senior living records)? Report findings @ -No old charts were reviewed Differential Diagnosis (chest pain, altered mental status, abdominal pain women, abdominal pain men, vaginal bleeding, musculoskeletal, weakness, fever, dyspnea, syncope, headache, dizziness, GI bleed, back pain, seizure, CVA, palpatations, mental health)? @ -Differential Headache: Migraine, tension, cluster, carbon monoxide, central venous thrombosis, pension karma temporal arteritis, acute closure glaucoma, intercranial hemorrhage, mastoiditis, sinusitis, head injury, this is not meant to be an all-inclusive list. Differential Abdominal Pain Women: Appendicitis, Cholecystitis, diverticulosis, ischemic bowel, pancreatitis, hepatitis, UTI, gastroenteritis, AAA, incarcerated hernia, bowel obstruction, constipation, inflammatory bowel, hepatitis, peptic ulcer disease, splenic infarction, perforated viscus, vulvitis, ovarian torsion, PID, kidney stone, placenta abruption, this is not meant to be an all-inclusive list EKG interpreted by me (3pts min.). @ -None done X-rays interpreted by me (1pt min.). @ -None done CT interpreted by me (1pt min.). @ -None done U/S interpreted by me (1pt. min.). @ -None done What testing was considered but not performed or refused? (CT, X-rays, U/S, labs)? Why? @ -None What meds were considered but not given or refused? Why? @ -None Did you discuss the management of the patient with other professionals (professionals i.e. , PA, FUSE SPOOLER, lab, RT, psych nurse, certified social workers in health care, refrigerator tester, teacher, associate loan officer, welfare case worker)? Give summary @ -No Was smoking cessation discussed for >3mins.? @ -No Was critical care preformed (if so, how long)? @ -No Were there social determinants of health that impacted care today? How? (Homelessness, low income, unemployed, alcoholism, drug addiction, transportation, low edu. Level, literacy, decrease access to med. care, retirement, rehab)? @ -No Was there de-escalation of care discussed even if they declined (Discuss DNR or withdrawal of care, Hospice)? DNR status @ -No What co-morbidities impacted this encounter? (DM, HTN, Smoking, COPD, CAD, Cancer, CVA, ARF, Chemo, Hep., AIDS, mental health diagnosis, sleep apnea, morbid obesity)? @ -None Was patient admitted / discharged? Hospital course, mention meds given and route, prescriptions, significant lab abnormalities, going to OR and other pertinent info. @ -32-year-old female with history of chronic headache and chronic abdominal pain reports yet again to the emergency department for headache and abdominal pain. Vital signs stable. Patient appears to be a baseline. I have seen this patient multiple occasion. Laboratory evaluation obtained. Labs are unremarkable. Patient discharged told to follow-up with the primary care doctor. Undiagnosed new problem with uncertain prognosis? @ -No Drug Therapy requiring intensive monitoring for toxicity (Heparin, Nitro, Insulin, Cardizem)? @ -No Were any procedures done? @ -No Diagnosis/symptom? Acute, or Chronic, or Acute on Chronic? Uncomplicated (without systemic symptoms) or Complicated (systemic symptoms)? @ -Chronic abdominal pain, chronic headache Side effects of treatment? @ -No Exacerbation, Progression, or Severe Exacerbation? @ -No Poses a threat to life or bodily function? How? (Chest pain, [place], [place], pneumonia, PE, COPD, DKA, ARF, appy, cholecystitis, CVA, Diverticulitis, Homicidal, Suicidal, threat to staff... and all critical care pts) @ -No - Lab Data Result diagrams: 02/07/23 14:01 02/07/23 14:01 Lab Results 02/07/23 02/07/23 Range/Units 14:01 14:01 WBC 4.1 (3.8-10.6) k/uL RBC 4.13 (3.80-5.40) m/uL Hgb 12.5 (11.4-16.0) gm/dL Hct 37.1 (34.0-46.0) % MCV 90.0 (80.0-100.0) fL MCH 30.4 (25.0-35.0) pg MCHC 33.8 (31.0-37.0) g/dL RDW 15.9 H (11.5-15.5) % Plt Count 207 (150-450) k/uL MPV 8.4 Neutrophils % 67 % Lymphocytes % 27 % Monocytes % 3 % Eosinophils % 2 % Basophils % 0 % Neutrophils # 2.7 (1.3-7.7) k/uL Lymphocytes # 1.1 (1.0-4.8) k/uL Monocytes # 0.1 (0-1.0) k/uL Eosinophils # 0.1 (0-0.7) k/uL Basophils # 0.0 (0-0.2) k/uL Sodium 138 (137-145) mmol/L Potassium 4.9 (3.5-5.1) mmol/L Chloride 107 (98-107) mmol/L Carbon Dioxide 16 L (22-30) mmol/L Anion Gap 15 mmol/L BUN 6 L (7-17) mg/dL Creatinine 0.46 L (0.52-1.04) mg/dL Est GFR (CKD-EPI)AfAm >90 (>60 ml/min/1.73 sqM) Est GFR (CKD-EPI)NonAf >90 (>60 ml/min/1.73 sqM) Glucose 106 H (74-99) mg/dL Calcium 10.9 H (8.4-10.2) mg/dL Total Bilirubin 0.5 (0.2-1.3) mg/dL AST 32 (14-36) U/L ALT 26 (4-34) U/L Alkaline Phosphatase 85 (38-126) U/L Total Protein 7.9 (6.3-8.2) g/dL Albumin 3.9 (3.5-5.0) g/dL Lipase 108 (23-300) U/L Disposition Clinical Impression: Headache, Abdominal pain Disposition: HOME SELF-CARE Condition: Good Instructions (If sedation given, give patient instructions): Abdominal Pain (ED), Acute Headache (ED) Is patient prescribed a controlled substance at d/c from ED?: No Referrals: Isi Carolina MD [Primary Care Provider] - 1-2 days Time of Disposition: 15:42
[2023-02-07 15:53] VITALS: BP 140/100; PULSE 100
== END 2023-02-07 15:51 | disposition home or self-care (01) ==
LOC: EC 12:59
DX: G89.29 Other chronic pain (principal); R51.9 Headache, unspecified; R10.9 Unspecified abdominal pain; J45.909 Unspecified asthma, uncomplicated; K21.9 Gastro-esophageal reflux disease without esophagitis; E11.9 Type 2 diabetes mellitus without complications; F17.290 Nicotine dependence, other tobacco product, uncomplicated; F12.90 Cannabis use, unspecified, uncomplicated; F41.9 Anxiety disorder, unspecified; F32.A Depression, unspecified; Z79.84 Long term (current) use of oral hypoglycemic drugs; Z79.4 Long term (current) use of insulin; Z79.899 Other long term (current) drug therapy; Z91.040 Latex allergy status; Z88.0 Allergy status to penicillin; Z88.2 Allergy status to sulfonamides; Z91.018 Allergy to other foods; Z91.030 Bee allergy status; Z88.8 Allergy status to other drugs, medicaments and biological substances; Z88.1 Allergy status to other antibiotic agents; Z90.49 Acquired absence of other specified parts of digestive tract
CPT/HCPCS: 36415; 80053; 83690; 85025; 99284

== ENCOUNTER 2023-02-07 19:47 | Emergency (ER) | payer OTHER ==
[2023-02-07 22:17] VITALS: BP 135/94; PULSE 138; RESP 18; TEMP 97.4
== END 2023-02-07 23:26 | disposition left against medical advice (07) ==
LOC: EC 19:47
DX: Z53.21 Procedure and treatment not carried out due to patient leaving prior to being seen by health care provider (principal)
CPT/HCPCS: 93005; 99499

== ENCOUNTER 2023-02-08 04:06 | Emergency (ER) | payer OTHER ==
[2023-02-08 04:33] VITALS: BP 121/80; PULSE 120; RESP 18; TEMP 98.5
[2023-02-08] MEDS ORDERED: KETOROLAC 15 MG/ML 1 ML VIAL IM STA (06:59)
[2023-02-08] MEDS ORDERED: diphenhydrAMINE 50 MG/ML 1 ML VIAL IM STA (06:59)
[2023-02-08] MEDS ORDERED: METOCLOPRAMIDE 5 MG/ML 2 ML VIAL IVP STA (06:59)
[2023-02-08] MEDS ORDERED: METOCLOPRAMIDE 5 MG/ML 2 ML VIAL IM STA (07:01)
--- NOTE | 2023-02-08 07:01 | ED ---
Abdominal Pain HPI - General Chief Complaint: Abdominal Pain Stated Complaint: Abdominal pain, Headache Time Seen by Provider: 02/08/23 06:58 Source: patient, RN notes reviewed Mode of arrival: ambulatory Limitations: no limitations - History of Present Illness Initial Comments: 32-year-old female presents emergency Department chief complaint of abdominal pain. This is chronic in nature. Patient laboratory studies yesterday were essentially unremarkable. She has recurrent pancreatitis. Patient states that she attempted to masturbate is made symptoms worse present emergency department. She has meant to nausea without any significant vomiting she does complain of a headache which is also chronic but states this is not a sudden onset headache is not the worst headache her life. Patient states the headache does wax and wane. She has any dysuria denies any chance . - Related Data Home Medications Medication Instructions Recorded Confirmed Omeprazole 20 mg PO BID 11/16/21 01/27/23 Acetaminophen [Tylenol Extra 500 mg PO Q4H PRN 03/30/22 01/27/23 Strength] Insulin Aspart [NovoLOG Flexpen] See Protocol SQ TID-W/MEALS 03/30/22 01/27/23 Insulin Glargine,Hum.rec.anlog 45 units SQ DAILY 03/30/22 01/27/23 [Lantus Solostar Pen] Ondansetron Odt [Zofran ODT] 4 mg PO Q6H PRN 03/30/22 01/27/23 tiZANidine [Zanaflex] 4 mg PO BID PRN 03/30/22 01/27/23 Albuterol Nebulized [Ventolin 2.5 mg INHALATION RT-Q4H PRN 09/18/22 01/27/23 Nebulized] Insulin Aspart [NovoLOG Flexpen] 10 units SQ TID-W/MEALS 09/18/22 01/27/23 Lipase/Protease/Amylase [Zenpep Dr 2 cap PO TID-W/MEALS 09/18/22 01/27/23 5,000 Unit Capsule] Pioglitazone [Actos] 30 mg PO DAILY 09/18/22 01/27/23 Atorvastatin [Lipitor] 80 mg PO HS 10/27/22 01/27/23 EPINEPHrine (Auto Inject) [Epipen] 0.3 mg IM DIRECTED PRN 10/27/22 01/27/23 Fenofibrate [Lofibra] 160 mg PO DAILY 10/27/22 01/27/23 QUEtiapine FUMARATE [SEROquel] 600 mg PO HS 11/09/22 01/27/23 Fluoride (Sodium) [Sodium Fluoride 1 applic DENTAL HS 12/10/22 01/27/23 5000 Plus] Metoclopramide [Reglan] 5 mg PO ACHS PRN 12/10/22 01/27/23 Pantoprazole [Protonix] 40 mg PO BID 12/10/22 01/27/23 Sucralfate [Carafate] 1 gm PO BID 12/10/22 01/27/23 metFORMIN HCL 1,000 mg PO BID 12/10/22 01/27/23 Dicyclomine [Bentyl] 10 mg PO TID PRN 01/27/23 01/27/23 Empagliflozin [Jardiance] 10 mg PO DAILY 01/27/23 01/27/23 Metoclopramide [Reglan] 10 mg PO TID PRN 01/27/23 01/27/23 Naproxen [EC-Naprosyn] 500 mg PO BID PRN 01/27/23 01/27/23 Nitrofurantoin Monohyd/M-Cryst 100 mg PO Q12HR 01/27/23 01/27/23 [Macrobid] Iwb-[id number]-Xoqfi Acid 1 cap PO DAILY 01/27/23 01/27/23 [-U Capsule (formulary)] Previous Rx's Medication Instructions Recorded Ibuprofen [Motrin] 800 mg PO Q8HR PRN #30 tab 06/07/22 Allergies Allergy/AdvReac Type Severity Reaction Status Date / Time bee pollen Allergy Severe Anaphylaxis Verified 02/06/23 05:07 haloperidol lactate Allergy Severe QUIT Verified 02/07/23 21:57 [From Haldol] BREATHING latex Allergy Severe RASH-THROAT Verified 02/07/23 21:57 CLOSES murrieta Allergy Anaphylaxis Verified 02/07/23 21:57 coconut Allergy Anaphylaxis Verified 02/07/23 21:57 pineapple Allergy Anaphylaxis Verified 02/07/23 21:57 spider venom Allergy Swelling Verified 02/07/23 21:57 Sulfa (Sulfonamide Allergy Anaphylaxis Verified 02/07/23 21:57 Antibiotics) venom-wasp Allergy Swelling Verified 02/07/23 21:57 venom-wasp protein Allergy Swelling Verified 10/29/23 21:57 promethazine HCl AdvReac Severe Nausea & Verified 02/07/23 21:57 [From Phenergan] Vomiting amoxicillin AdvReac Nausea & Verified 02/07/23 21:57 Vomiting ANTS Allergy Mild Anaphylaxis Uncoded 02/07/23 21:57 Review of Systems ROS Statement: Those systems with pertinent positive or pertinent negative responses have been documented in the HPI. ROS Other: All systems not noted in ROS Statement are negative. Past Medical History Past Medical History: Asthma, Diabetes Mellitus, GERD/Reflux Additional Past Medical History / Comment(s): migraines, degenerative disk di sease, endometriosis, lupus, pancreatitis, DM2- insulin, gastroparesis History of Any Multi-Drug Resistant Organisms: None Reported Past Surgical History: Cholecystectomy, Orthopedic Surgery Additional Past Surgical History / Comment(s): laparoscopc surgery for endometriosis, cyst removed from left foot, EGD, Past Anesthesia/Blood Transfusion Reactions: Previous Problems w/ Anesthesia Additional Past Anesthesia/Blood Transfusion Reaction / Comment(s): hard to wake up for 48-72 hours after laparoscopic surgery-was in hosp. for 3 days Past Psychological History: Anxiety, Depression, PTSD Smoking Status: Former smoker, Vaper Past Alcohol Use History: None Reported Past Drug Use History: Marijuana - Past Family History Mother Family Medical History: Cancer Additional Family Medical History / Comment(s): Migraines, pancreatic cancer, . Father Family Medical History: Coronary Artery Disease (CAD), Hypertension Additional Family Medical History / Comment(s): ddd, alcoholism & drug use General Exam Limitations: no limitations General appearance: alert, in no apparent distress Head exam: Present: atraumatic, normocephalic, normal inspection Eye exam: Present: normal appearance, PERRL, EOMI. Absent: scleral icterus, conjunctival injection, periorbital swelling ENT exam: Present: normal exam, normal oropharynx, mucous membranes moist Neck exam: Present: normal inspection, full ROM. Absent: tenderness, meningismus, lymphadenopathy Respiratory exam: Present: normal lung sounds bilaterally. Absent: respiratory distress, wheezes, rales, rhonchi, stridor Cardiovascular Exam: Present: regular rate, normal rhythm, normal heart sounds. Absent: systolic murmur, diastolic murmur, rubs, gallop, clicks GI/Abdominal exam: Present: soft, normal bowel sounds. Absent: distended, te nderness, guarding, rebound, rigid Neurological exam: Present: alert, oriented X3, CN II-XII intact, reflexes normal. Absent: motor sensory deficit Skin exam: Present: warm, dry, intact, normal color. Absent: rash Course Vital Signs 02/08/23 04:28 Temperature 98.5 F Pulse Rate 120 H Respiratory 18 Rate Blood Pressure 121/80 O2 Sat by Pulse 99 Oximetry Medical Decision Making - Medical Decision Making Was pt. sent in by a medical professional or institution (, SADE, REVOLVING INVENTORY CLERK, urgent care, hospital, or fpc...) When possible be specific @ -No Did you speak to anyone other than the patient for history (EMS, parent, family, police, friend...)? What history was obtained from this source @ -No Did you review nursing and triage notes (agree or disagree)? Why? @ -I reviewed and agree with nursing and triage notes Were old charts reviewed (outside hosp., previous admission, EMS record, old EKG, old radiological studies, urgent care reports/EKG's, fpc records)? Report findings @ -Reviewed prior laboratory studies Differential Diagnosis (chest pain, altered mental status, abdominal pain women, abdominal pain men, vaginal bleeding, weakness, fever, dyspnea, syncope, headache, dizziness, GI bleed, back pain, seizure, CVA, palpatations, mental health, musculoskeletal)? @ -Differential Abdominal Pain Women: Appendicitis, Cholecystitis, diverticulosis, ischemic bowel, pancreatitis, hepatitis, UTI, gastroenteritis, AAA, incarcerated hernia, bowel obstruction, constipation, inflammatory bowel, hepatitis, peptic ulcer disease, splenic infarction, perforated viscus, vulvitis, ovarian torsion, PID, kidney stone, placenta abruption, this is not meant to be an all-inclusive list EKG interpreted by me (3pts min.). @ -None X-rays interpreted by me (1pt min.). @ -None done CT interpreted by me (1pt min.). @ -None done U/S interpreted by me (1pt. min.). @ -None done What testing was considered but not performed or refused? (CT, X-rays, U/S, labs)? Why? @ -None What meds were considered but not given or refused? Why? @ -None Did you discuss the management of the patient with other professionals (professionals i.e. , PA, REVOLVING INVENTORY CLERK, lab, RT, psych nurse, social security assessor, motor and generator assembler, teacher, chief resource officer, case briefer)? Give summary @ -No Was smoking cessation discussed for >3mins.? @ -No Was critical care preformed (if so, how long)? @ -No Were there social determinants of health that impacted care today? How? (Homelessness, low income, unemployed, alcoholism, drug addiction, transportation, low edu. Level, literacy, decrease access to med. care, fpc, rehab)? @ -No Was there de-escalation of care discussed even if they declined (Discuss DNR or withdrawal of care, Hospice)? DNR status @ -No What co-morbidities impacted this encounter? (DM, HTN, Smoking, COPD, CAD, Cancer, CVA, ARF, Chemo, Hep., AIDS, mental health diagnosis, sleep apnea, morbid obesity)? @ -Chronic pain Was patient admitted / discharged? Hospital course, mention meds given and route, prescriptions, significant lab abnormalities, going to OR and other pertinent info. @ -Discharge patient ultrasound was reviewed from yesterday which are essentially unremarkable she has no increase in symptoms. Patient will be discharged after antiemetics and Toradol return parameters were discussed. Undiagnosed new problem with uncertain prognosis? @ -No Drug Therapy requiring intensive monitoring for toxicity (Heparin, Nitro, Insulin, Cardizem)? @ -No Were any procedures done? @ -No Diagnosis/symptom? @ -Chronic abdominal pain Acute, or Chronic, or Acute on Chronic? @ -Acute Uncomplicated (without systemic symptoms) or Complicated (systemic symptoms)? @ -Uncomplicated Side effects of treatment? @ -No Exacerbation, Progression, or Severe Exacerbation? @ -No Poses a threat to life or bodily function? How? (Chest pain, [place], [place], pneumonia, PE, COPD, DKA, ARF, appy, cholecystitis, CVA, Diverticulitis, Homicidal, Suicidal, threat to staff... and all critical care pts) @ -No Disposition Clinical Impression: Chronic pain, Abdominal pain Disposition: HOME SELF-CARE Condition: Stable Instructions (If sedation given, give patient instructions): Abdominal Pain (ED) Additional Instructions: Please return to the Emergency Department if symptoms worsen or any other concerns. Is patient prescribed a controlled substance at d/c from ED?: No Referrals: Isi Carolina MD [Primary Care Provider] - 1-2 days Time of Disposition: 07:00
== END 2023-02-08 09:54 | disposition home or self-care (01) ==
LOC: EC 04:06
DX: G89.29 Other chronic pain (principal); R10.9 Unspecified abdominal pain; E11.43 Type 2 diabetes mellitus with diabetic autonomic (poly)neuropathy; K31.84 Gastroparesis; J45.909 Unspecified asthma, uncomplicated; K21.9 Gastro-esophageal reflux disease without esophagitis; F32.A Depression, unspecified; F41.9 Anxiety disorder, unspecified; F17.290 Nicotine dependence, other tobacco product, uncomplicated; F12.90 Cannabis use, unspecified, uncomplicated; Z79.4 Long term (current) use of insulin; Z79.84 Long term (current) use of oral hypoglycemic drugs; Z79.899 Other long term (current) drug therapy; Z88.0 Allergy status to penicillin; Z88.2 Allergy status to sulfonamides; Z88.8 Allergy status to other drugs, medicaments and biological substances; Z91.018 Allergy to other foods; Z91.040 Latex allergy status; Z91.030 Bee allergy status; Z91.038 Other insect allergy status; Z91.09 Other allergy status, other than to drugs and biological substances; Z90.49 Acquired absence of other specified parts of digestive tract
CPT/HCPCS: 99284; 96372 ×3; J1200; J2765; J1885

== ENCOUNTER 2023-02-09 08:08 | Emergency (ER) | payer OTHER ==
[2023-02-09] MEDS ORDERED: METOCLOPRAMIDE 10 MG TAB PO STA (08:24)
[2023-02-09] MEDS ORDERED: KETOROLAC 15 MG/ML 1 ML VIAL IM STA (08:24)
[2023-02-09] MEDS ORDERED: MAG HYDROX/AL HYDROX/SIMETH 30 ML, HYOSCYAMINE ELIXIR 10 ML, LIDOCAINE VISCOUS 200 MG PO STA ×3 (08:28)
[2023-02-09] MEDS ORDERED: MAG HYDROX/AL HYDROX/SIMETH 30 ML, HYOSCYAMINE ELIXIR 10 ML, LIDOCAINE 2% GLYDO JELLY 1... PO STA ×3 (08:37)
--- NOTE | 2023-02-09 09:20 | US ---
EXAMINATION TYPE: US venous doppler duplex LE LT DATE OF EXAM: 02/09/2023 8:55 AM COMPARISON: NONE CLINICAL INDICATION: Female, 32 years old with history of pain; Lt ankle/ foot pain and swelling x 4 days SIDE PERFORMED: Left TECHNIQUE: The lower extremity deep venous system is examined utilizing real time linear array sonog jackson with graded compression, doppler sonography and color-flow sonography. VESSELS IMAGED: Common Femoral Vein Deep Femoral Vein Greater Saphenous Vein * Femoral Vein Popliteal Vein Small Saphenous Vein * Proximal Calf Veins (* superficial vessels) Left Leg: Negative for DVT IMPRESSION: 1. Left lower extremity ultrasound negative for deep venous thrombosis.
[2023-02-09 09:36] VITALS: RESP 18; TEMP 98
--- NOTE | 2023-02-09 09:46 | ED ---
Abdominal Pain HPI - General Chief Complaint: Abdominal Pain Stated Complaint: Abn Labs,Abd Pain Time Seen by Provider: 02/09/23 08:18 Source: patient, RN notes reviewed Mode of arrival: ambulatory Limitations: no limitations - History of Present Illness Initial Comments: 32-year-old female presents emergency Department chief complaint of possible left leg blood clot. states that she sent by her toppiece chopper Dr. Guthrie because she had increase in swelling and she has been immobilized in the boot. Patient denies any chest pain or shortness of breath. Patient does complain of her chronic abdominal pain which is not more than usual she states she has nausea without vomiting denies fevers or chills cannot localize the pain. - Related Data Home Medications Medication Instructions Recorded Confirmed Omeprazole 20 mg PO BID 11/16/21 01/27/23 Acetaminophen [Tylenol Extra 500 mg PO Q4H PRN 03/30/22 01/27/23 Strength] Insulin Aspart [NovoLOG Flexpen] See Protocol SQ TID-W/MEALS 03/30/22 01/27/23 Insulin Glargine,Hum.rec.anlog 45 units SQ DAILY 03/30/22 01/27/23 [Lantus Solostar Pen] Ondansetron Odt [Zofran ODT] 4 mg PO Q6H PRN 03/30/22 01/27/23 tiZANidine [Zanaflex] 4 mg PO BID PRN 03/30/22 01/27/23 Albuterol Nebulized [Ventolin 2.5 mg INHALATION RT-Q4H PRN 09/18/22 01/27/23 Nebulized] Insulin Aspart [NovoLOG Flexpen] 10 units SQ TID-W/MEALS 09/18/22 01/27/23 Lipase/Protease/Amylase [Zenpep Dr 2 cap PO TID-W/MEALS 09/18/22 01/27/23 5,000 Unit Capsule] Pioglitazone [Actos] 30 mg PO DAILY 09/18/22 01/27/23 Atorvastatin [Lipitor] 80 mg PO HS 10/27/22 01/27/23 EPINEPHrine (Auto Inject) [Epipen] 0.3 mg IM DIRECTED PRN 10/27/22 01/27/23 Fenofibrate [Lofibra] 160 mg PO DAILY 10/27/22 01/27/23 QUEtiapine FUMARATE [SEROquel] 600 mg PO HS 11/09/22 01/27/23 Fluoride (Sodium) [Sodium Fluoride 1 applic DENTAL HS 12/10/22 01/27/23 5000 Plus] Metoclopramide [Reglan] 5 mg PO ACHS PRN 12/10/22 01/27/23 Pantoprazole [Protonix] 40 mg PO BID 12/10/22 01/27/23 Sucralfate [Carafate] 1 gm PO BID 12/10/22 01/27/23 metFORMIN HCL 1,000 mg PO BID 12/10/22 01/27/23 Dicyclomine [Bentyl] 10 mg PO TID PRN 01/27/23 01/27/23 Empagliflozin [Jardiance] 10 mg PO DAILY 01/27/23 01/27/23 Metoclopramide [Reglan] 10 mg PO TID PRN 01/27/23 01/27/23 Naproxen [EC-Naprosyn] 500 mg PO BID PRN 01/27/23 01/27/23 Nitrofurantoin Monohyd/M-Cryst 100 mg PO Q12HR 01/27/23 01/27/23 [Macrobid] Lla-[id number]-[id number] Acid 1 cap PO DAILY 01/27/23 01/27/23 [-U Capsule (formulary)] Previous Rx's Medication Instructions Recorded Ibuprofen [Motrin] 800 mg PO Q8HR PRN #30 tab 06/07/22 Allergies Allergy/AdvReac Type Severity Reaction Status Date / Time bee pollen Allergy Severe Anaphylaxis Verified 02/09/23 08:12 haloperidol lactate Allergy Severe QUIT Verified 02/09/23 08:12 [From Haldol] BREATHING latex Allergy Severe RASH-THROAT Verified 02/09/23 08:12 CLOSES [place] Allergy Anaphylaxis Verified 02/09/23 08:12 coconut Allergy Anaphylaxis Verified 02/09/23 08:12 pineapple Allergy Anaphylaxis Verified 02/09/23 08:12 spider venom Allergy Swelling Verified 02/09/23 08:12 Sulfa (Sulfonamide Allergy Anaphylaxis Verified 02/09/23 08:12 Antibiotics) venom-wasp Allergy Swelling Verified 02/09/23 08:12 venom-wasp protein Allergy Swelling Verified 02/09/23 08:12 promethazine HCl AdvReac Severe Nausea & Verified 02/09/23 08:12 [From Phenergan] Vomiting amoxicillin AdvReac Nausea & Verified 02/09/23 08:12 Vomiting ANTS Allergy Mild Anaphylaxis Uncoded 02/09/23 08:12 Review of Systems ROS Statement: Those systems with pertinent positive or pertinent negative responses have been documented in the HPI. ROS Other: All systems not noted in ROS Statement are negative. Past Medical History Past Medical History: Asthma, Diabetes Mellitus, GERD/Reflux Additional Past Medical History / Comment(s): migraines, degenerative disk disease, endometriosis, lupus, pancreatitis, DM2- insulin, gastroparesis History of Any Multi-Drug Resistant Organisms: None Reported Past Surgical History: Cholecystectomy, Orthopedic Surgery Additional Past Surgical History / Comment(s): laparoscopc surgery for endometriosis, cyst removed from left foot, EGD, Past Anesthesia/Blood Transfusion Reactions: Previous Problems w/ Anesthesia Additional Past Anesthesia/Blood Transfusion Reaction / Comment(s): hard to wake up for 48-72 hours after laparoscopic surgery-was in hosp. for 3 days Past Psychological History: Anxiety, Depression, PTSD Smoking Status: Former smoker, Vaper Past Alcohol Use History: None Reported Past Drug Use History: Marijuana - Past Family History Mother Family Medical History: Cancer Additional Family Medical History / Comment(s): Migraines, pancreatic cancer, . Father Family Medical History: Coronary Artery Disease (CAD), Hypertension Additional Family Medical History / Comment(s): ddd, alcoholism & drug use General Exam Limitations: no limitations General appearance: alert, in no apparent distress Head exam: Present: atraumatic, normocephalic, normal inspection Eye exam: Present: normal appearance, PERRL, EOMI. Absent: scleral icterus, conjunctival injection, periorbital swelling ENT exam: Present: normal exam, mucous membranes moist Neck exam: Present: normal inspection. Absent: tenderness, meningismus, lymphadenopathy Respiratory exam: Present: normal lung sounds bilaterally. Absent: respiratory distress, wheezes, rales, rhonchi, stridor Cardiovascular Exam: Present: regular rate, normal rhythm, normal heart sounds. Absent: systolic murmur, diastolic murmur, rubs, gallop, clicks Neurological exam: Present: alert Skin exam: Present: warm, dry, intact, normal color. Absent: rash Course Vital Signs 02/09/23 02/09/23 02/09/23 08:09 09:12 10:11 Temperature 97.7 F 98 F 98 F Pulse Rate 120 H 94 90 Respiratory 20 18 18 Rate Blood Pressure 136/101 128/86 129/86 O2 Sat by Pulse 99 98 98 Oximetry Medical Decision Making - Medical Decision Making Was pt. sent in by a medical professional or institution (, SADE, ROLL WRAPPER, urgent care, hospital, or snf...) When possible be specific @ -Boiler Plant Operator Did you speak to anyone other than the patient for history (EMS, parent, family, police, friend...)? What history was obtained from this source @ -No Did you review nursing and triage notes (agree or disagree)? Why? @ -I reviewed and agree with nursing and triage notes Were old charts reviewed (outside hosp., previous admission, EMS record, old EKG, old radiological studies, urgent care reports/EKG's, snf records)? Report findings @ -Reviewed prior laboratory studies Differential Diagnosis (chest pain, altered mental status, abdominal pain women, abdominal pain men, vaginal bleeding, weakness, fever, dyspnea, syncope, headache, dizziness, GI bleed, back pain, seizure, CVA, palpatations, mental health, musculoskeletal)? @ -DVT, pedal edema, chronic abdominal pain EKG interpreted by me (3pts min.). @ -None X-rays interpreted by me (1pt min.). @ -None done CT interpreted by me (1pt min.). @ -None done U/S interpreted by me (1pt. min.). @ -Ultrasound was negative for acute DVT What testing was considered but not performed or refused? (CT, X-rays, U/S, labs)? Why? @ -None What meds were considered but not given or refused? Why? @ -None Did you discuss the management of the patient with other professionals (professionals i.e. SADE López, ROLL WRAPPER, lab, RT, psych nurse, hospital social worker, commercial pilot, teacher, parachute officer, outpatient case manager)? Give summary @ -No Was smoking cessation discussed for >3mins.? @ -No Was critical care preformed (if so, how long)? @ -No Were there social determinants of health that impacted care today? How? (Homelessness, low income, unemployed, alcoholism, drug addiction, transportation, low edu. Level, literacy, decrease access to med. care, [facility], rehab)? @ -No Was there de-escalation of care discussed even if they declined (Discuss DNR or withdrawal of care, Hospice)? DNR status @ -No What co-morbidities impacted this encounter? (DM, HTN, Smoking, COPD, CAD, Cancer, CVA, ARF, Chemo, Hep., AIDS, mental health diagnosis, sleep apnea, morbid obesity)? @ -[Diabetes, chronic pain Was patient admitted / discharged? Hospital course, mention meds given and route, prescriptions, significant lab abnormalities, going to OR and other pertinent info. @ -Discharge patient Ultram was negative for DVT. Patient complains of chronic abdominal pain advised to follow-up with PCP, pain management and GI she has no new complaints today otherwise and will be discharged in stable condition. Undiagnosed new problem with uncertain prognosis? @ -No Drug Therapy requiring intensive monitoring for toxicity (Heparin, Nitro, Insulin, Cardizem)? @ -No Were any procedures done? @ -No Diagnosis/symptom? @ -Leg edema, chronic abdominal pain Acute, or Chronic, or Acute on Chronic? @ -Acute Uncomplicated (without systemic symptoms) or Complicated (systemic symptoms)? @ -Uncomplicated Side effects of treatment? @ -No Exacerbation, Progression, or Severe Exacerbation? @ -No Poses a threat to life or bodily function? How? (Chest pain, [place], [place], pneumonia, PE, COPD, DKA, ARF, appy, cholecystitis, CVA, Diverticulitis, Homicidal, Suicidal, threat to staff... and all critical care pts) @ -No Disposition Clinical Impression: Chronic abdominal pain, Leg swelling Disposition: HOME SELF-CARE Condition: Stable Instructions (If sedation given, give patient instructions): Abdominal Pain (ED) Additional Instructions: Please return to the Emergency Department if symptoms worsen or any other co ncerns. Is patient prescribed a controlled substance at d/c from ED?: No Referrals: Isi Carolina MD [STAFF PHYSICIAN] - 1-2 days Time of Disposition: 09:45
[2023-02-09 10:20] VITALS: BP 129/86; PULSE 90
== END 2023-02-09 10:13 | disposition home or self-care (01) ==
LOC: EC 08:08
DX: G89.4 Chronic pain syndrome (principal); R10.9 Unspecified abdominal pain; R22.42 Localized swelling, mass and lump, left lower limb; J45.909 Unspecified asthma, uncomplicated; E11.9 Type 2 diabetes mellitus without complications; K21.9 Gastro-esophageal reflux disease without esophagitis; F41.9 Anxiety disorder, unspecified; F32.A Depression, unspecified; F17.290 Nicotine dependence, other tobacco product, uncomplicated; F12.90 Cannabis use, unspecified, uncomplicated; Z88.2 Allergy status to sulfonamides; Z91.018 Allergy to other foods; Z91.038 Other insect allergy status; Z88.0 Allergy status to penicillin; Z91.040 Latex allergy status; Z91.030 Bee allergy status; Z79.4 Long term (current) use of insulin; Z79.899 Other long term (current) drug therapy
CPT/HCPCS: 93971; 99284; 96372; J1885

== ENCOUNTER 2023-02-12 05:12 | Emergency (ER) | payer OTHER ==
[2023-02-12 05:23] VITALS: RESP 18; TEMP 98.7
[2023-02-12] MEDS ORDERED: KETOROLAC 15 MG/ML 1 ML VIAL IM STA ×2 (06:04→07:32)
[2023-02-12] MEDS ORDERED: ONDANSETRON 4 MG/2 ML VIAL IM STA (06:04)
[2023-02-12] MEDS ORDERED: CIPROFLOXACIN-DEXAMETH 0.3-0.1% DROPS 7.5 ML BTL LEFT EAR STA (06:04)
[2023-02-12] MEDS ORDERED: diphenhydrAMINE 50 MG/ML 1 ML VIAL IM STA (06:04)
[2023-02-12] MEDS ORDERED: LIDOCAINE 2% GLYDO JELLY 11 ML APPL PO ONE (06:04)
--- NOTE | 2023-02-12 06:13 | ED ---
ENT HPI - General Chief complaint: ENT Stated complaint: Abd pain, throat pain, earache, dizziness Time Seen by Provider: 02/12/23 05:57 Source: patient, RN notes reviewed Mode of arrival: ambulatory Limitations: no limitations - History of Present Illness Initial comments: This is a 32 year old female who presents to the emergency department for a sore throat and left ear pain. Symptoms started 3-4 days ago. Her 4 year old child has been sick with similar symptoms. Reports mild associated coughing and headaches as well. She is concerned that she is unable to take her medicine due to the sore throat. She also has abdominal pain, however this is a chronic problem for her related to her chronic pancreatitis, and she is well known to our emergency department for that complaint. MD complaint: sore throat, ear pain Onset/Timin -: days(s) - Related Data Home Medications Medication Instructions Recorded Confirmed Omeprazole 20 mg PO BID 11/16/21 01/27/23 Acetaminophen [Tylenol Extra 500 mg PO Q4H PRN 03/30/22 01/27/23 Strength] Insulin Aspart [NovoLOG Flexpen] See Protocol SQ TID-W/MEALS 03/30/22 01/27/23 Insulin Glargine,Hum.rec.anlog 45 units SQ DAILY 03/30/22 01/27/23 [Lantus Solostar Pen] Ondansetron Odt [Zofran ODT] 4 mg PO Q6H PRN 03/30/22 01/27/23 tiZANidine [Zanaflex] 4 mg PO BID PRN 03/30/22 01/27/23 Albuterol Nebulized [Ventolin 2.5 mg INHALATION RT-Q4H PRN 09/18/22 01/27/23 Nebulized] Insulin Aspart [NovoLOG Flexpen] 10 units SQ TID-W/MEALS 09/18/22 01/27/23 Lipase/Protease/Amylase [Zenpep Dr 2 cap PO TID-W/MEALS 09/18/22 01/27/23 5,000 Unit Capsule] Pioglitazone [Actos] 30 mg PO DAILY 09/18/22 01/27/23 Atorvastatin [Lipitor] 80 mg PO HS 10/27/22 01/27/23 EPINEPHrine (Auto Inject) [Epipen] 0.3 mg IM DIRECTED PRN 10/27/22 01/27/23 Fenofibrate [Lofibra] 160 mg PO DAILY 10/27/22 01/27/23 QUEtiapine FUMARATE [SEROquel] 600 mg PO HS 11/09/22 01/27/23 Fluoride (Sodium) [Sodium Fluoride 1 applic DENTAL HS 12/10/22 01/27/23 5000 Plus] Metoclopramide [Reglan] 5 mg PO ACHS PRN 12/10/22 01/27/23 Pantoprazole [Protonix] 40 mg PO BID 12/10/22 01/27/23 Sucralfate [Carafate] 1 gm PO BID 12/10/22 01/27/23 metFORMIN HCL 1,000 mg PO BID 12/10/22 01/27/23 Dicyclomine [Bentyl] 10 mg PO TID PRN 01/27/23 01/27/23 Empagliflozin [Jardiance] 10 mg PO DAILY 01/27/23 01/27/23 Metoclopramide [Reglan] 10 mg PO TID PRN 01/27/23 01/27/23 Naproxen [EC-Naprosyn] 500 mg PO BID PRN 01/27/23 01/27/23 Nitrofurantoin Monohyd/M-Cryst 100 mg PO Q12HR 01/27/23 01/27/23 [Macrobid] Klh-Twtz-Sxnds Acid 1 cap PO DAILY 01/27/23 01/27/23 [-U Capsule (formulary)] Previous Rx's Medication Instructions Recorded Ibuprofen [Motrin] 800 mg PO Q8HR PRN #30 tab 06/07/22 Acet/Diph/Lido/Echt-Bjs-Skl-Si 5 ml PO Q4-6H PRN #240 ml 02/12/23 [Tyl/Benadryl/Lido/Maalox] Allergies Allergy/AdvReac Type Severity Reaction Status Date / Time bee pollen Allergy Severe Anaphylaxis Verified 02/09/23 08:12 haloperidol lactate Allergy Severe QUIT Verified 02/09/23 08:12 [From Haldol] BREATHING latex Allergy Severe RASH-THROAT Verified 02/09/23 08:12 CLOSES [place] Allergy Anaphylaxis Verified 02/09/23 08:12 coconut Allergy Anaphylaxis Verified 02/09/23 08:12 pineapple Allergy Anaphylaxis Verified 02/09/23 08:12 spider venom Allergy Swelling Verified 02/09/23 08:12 Sulfa (Sulfonamide Allergy Anaphylaxis Verified 02/09/23 08:12 Antibiotics) venom-wasp Allergy Swelling Verified 02/09/23 08:12 venom-wasp protein Allergy Swelling Verified 02/09/23 08:12 promethazine HCl AdvReac Severe Nausea & Verified 02/09/23 08:12 [From Phenergan] Vomiting amoxicillin AdvReac Nausea & Verified 02/09/23 08:12 Vomiting ANTS Allergy Mild Anaphylaxis Uncoded 02/09/23 08:12 Review of Systems ROS Statement: Those systems with pertinent positive or pertinent negative responses have been documented in the HPI. ROS Other: All systems not noted in ROS Statement are negative. Past Medical History Past Medical History: Asthma, Diabetes Mellitus, GERD/Reflux Additional Past Medical History / Comment(s): migraines, degenerative disk disease, endometriosis, lupus, pancreatitis, DM2- insulin, gastroparesis History of Any Multi-Drug Resistant Organisms: None Reported Past Surgical History: Cholecystectomy, Orthopedic Surgery Additional Past Surgical History / Comment(s): laparoscopc surgery for endometriosis, cyst removed from left foot, EGD, Past Anesthesia/Blood Transfusion Reactions: Previous Problems w/ Anesthesia Additional Past Anesthesia/Blood Transfusion Reaction / Comment(s): hard to wake up for 48-72 hours after laparoscopic surgery-was in hosp. for 3 days Past Psychological History: Anxiety, Depression, PTSD Smoking Status: Former smoker, Vaper Past Alcohol Use History: None Reported Past Drug Use History: Marijuana - Past Family History Mother Family Medical History: Cancer Additional Family Medical History / Comment(s): Migraines, pancreatic cancer, . Father Family Medical History: Coronary Artery Disease (CAD), Hypertension Additional Family Medical History / Comment(s): ddd, alcoholism & drug use General Exam Limitations: no limitations General appearance: alert, in no apparent distress Head exam: Present: atraumatic, normocephalic, normal inspection ENT exam: Present: other (Left canal erythema, no TM erythema or bulging bilaterally. Posterior pharyngeal erythema. No tonsilar hypertrophy or exudates.) Neck exam: Present: normal inspection. Absent: tenderness, meningismus, lymphadenopathy Respiratory exam: Present: normal lung sounds bilaterally. Absent: respiratory distress, wheezes, rales, rhonchi, stridor Cardiovascular Exam: Present: regular rate, normal rhythm, normal heart sounds. Absent: systolic murmur, diastolic murmur, rubs, gallop, clicks GI/Abdominal exam: Present: soft, tenderness (LUQ), normal bowel sounds. Absent: distended Neurological exam: Present: alert, oriented X3, CN II-XII intact Psychiatric exam: Present: normal affect, normal mood Skin exam: Present: warm, dry, intact, normal color. Absent: rash Course Vital Signs 02/12/23 02/12/23 05:20 07:52 Temperature 98.7 F Pulse Rate 110 H 90 Respiratory 18 18 Rate Blood Pressure 136/85 132/78 O2 Sat by Pulse 98 100 Oximetry Medical Decision Making - Medical Decision Making This is a 32 year old female who presents to the emergency department for a sore throat and left ear pain. Was pt. sent in by a medical professional or institution? @ -No Did you speak to anyone other than the patient for history? @ -No Did you review nursing and triage notes? @ -Yes, and I agree, it is accurate with regards to the patient's symptoms. Were old charts reviewed? @ -No Differential Diagnosis? @ -Differential Sore Throat: Strep pharyngitis, herpes zoster, COVID, influenza, GERD, allergic rhinitis, mononucleosis, this is not meant to be an all-inclusive list. EKG interpreted by me (3pts min.)? @ -Not obtained X-rays interpreted by me (1pt min.)? @ -Not obtained CT interpreted by me (1pt min.)? @ -Not obtained U/S interpreted by me (1pt. min.)? @ -Not obtained What testing was considered but not performed? (CT, X-rays, U/S, labs)? Why? @ -None What meds were considered but not given? Why? @ -None Did you discuss the management of the patient with other professionals? @ -No Did you reconcile home meds? @ -No Was smoking cessation discussed for >3mins.? @ -No Was critical care preformed (if so, how long)? @ -No Were there social determinants of health that impacted care today? How? (Homelessness, low income, unemployed, alcoholism, drug addiction, transportation, low edu. Level, literacy, decrease access to med. care, half-way, rehab)? @ -No Was there de-escalation of care discussed even if they declined? (Discuss DNR or withdrawal of care, Hospice)? @ -No What co-morbidities impacted this encounter? (DM, HTN, Smoking, COPD, CAD, Cancer, CVA, Hep., AIDS, mental health diagnosis, sleep apnea, morbid obesity)? @ -Chronic pancreatitis, DM, asthma Was patient admitted / discharged? @ -Discharged. Rapid strep test negative. COVID, influenza, and RSV testing negative. Physical examination consistent with a left otitis externa. Patient given a bottle of Ciprodex drops and viscous lidocaine in the emergency department. She is advised to continue using these drops as 4 drops to the left ear twice daily for 7 days. She was also given a prescription for magic mouthwash for additional symptomatic management. Patient otherwise discharged home in stable condition with instructions to follow up with her PCP. Undiagnosed new problem with uncertain prognosis? @ -None Drug Therapy requiring intensive monitoring for toxicity (Heparin, Nitro, Insulin, Cardizem)? @ -None Were any procedures done? @ -None Diagnosis/symptom? @ -Left otitis externa, viral pharyngitis Acute, or Chronic, or Acute on Chronic? @ -Acute Uncomplicated (without systemic symptoms) or Complicated (systemic symptoms)? @ -Uncomplicated Side effects of treatment? @ -None Exacerbation, Progression, or Severe Exacerbation] @ -Not applicable Poses a threat to life or bodily function? @ -No Return precautions reviewed in depth, the patient is instructed to return to the emergency department with any new, worsening, or concerning symptoms. Patient verbalized understanding. This case was discussed in detail with the attending ED physician, Dr. Rojas. Presentation, findings, and treatment plan discussed in detail as well. - Lab Data Lab Results 02/12/23 02/12/23 Range/Units 06:07 06:07 Influenza Type A (PCR) Not Detected (Not Detectd) Influenza Type B (PCR) Not Detected (Not Detectd) RSV (PCR) Not Detected (Not Detectd) SARS-CoV-2 (PCR) Not Detected (Not Detectd) Group A Strep (PCR) NOT DETECTED (Not Detectd) Disposition Clinical Impression: Left otitis externa, Viral pharyngitis Disposition: HOME SELF-CARE Instructions (If sedation given, give patient instructions): Pharyngitis (ED), Swimmer's Ear (ED) Additional Instructions: Return to the emergency department with any new, worsening, or concerning symptoms. Apply the Ciprodex drops as 4 drops to the left ear twice daily for 7 days. Use the Magic mouthwash as 5-10 mL every 4-6 hours as needed for a sore throat. Follow up with your primary care provider in 1-2 days. Prescriptions: Acet/Diph/Lido/Mpzt-Sbk-Uxt-Si [Tyl/Benadryl/Lido/Maalox] 5 ml PO Q4-6H PRN #240 ml PRN Reason: Sore Throat Is patient prescribed a controlled substance at d/c from ED?: No Referrals: Isi Carolina MD [Primary Care Provider] - 1-2 days
[2023-02-12] MEDS ORDERED: CIPROFLOXACIN-DEXAMETH 0.3-0.1% DROPS 7.5 ML BTL RIGHT EAR STA (07:33)
[2023-02-12 07:57] VITALS: BP 132/78; PULSE 90
== END 2023-02-12 07:53 | disposition home or self-care (01) ==
LOC: SUPCPDRO 05:12 → EC 05:12
DX: J02.8 Acute pharyngitis due to other specified organisms (principal); H60.92 Unspecified otitis externa, left ear; J45.909 Unspecified asthma, uncomplicated; E11.9 Type 2 diabetes mellitus without complications; K21.9 Gastro-esophageal reflux disease without esophagitis; F41.9 Anxiety disorder, unspecified; F32.A Depression, unspecified; F17.290 Nicotine dependence, other tobacco product, uncomplicated; F12.90 Cannabis use, unspecified, uncomplicated; Z79.84 Long term (current) use of oral hypoglycemic drugs; Z79.899 Other long term (current) drug therapy; Z91.040 Latex allergy status; Z91.030 Bee allergy status; Z91.018 Allergy to other foods; Z88.8 Allergy status to other drugs, medicaments and biological substances; Z88.2 Allergy status to sulfonamides; Z88.0 Allergy status to penicillin; Z20.822 Contact with and (suspected) exposure to COVID-19; Z79.4 Long term (current) use of insulin; Z88.1 Allergy status to other antibiotic agents; Z90.49 Acquired absence of other specified parts of digestive tract
CPT/HCPCS: 87651; 87636; 99283; 96372 ×4; J1200; J2405; J1885

== ENCOUNTER 2023-02-13 16:39 | Emergency (ER) | payer OTHER ==
[2023-02-13 16:45] VITALS: TEMP 97.7
[2023-02-13 17:05] VITALS: RESP 18
--- NOTE | 2023-02-13 17:17 | XR ---
EXAMINATION TYPE: XR chest 2V DATE OF EXAM: 02/13/2023 COMPARISON: 04/27/2022 HISTORY: Shortness of breath and cough TECHNIQUE: Frontal and lateral views of the chest are obtained. FINDINGS: There is no focal air space opacity, pleural effusion, or pneumothorax seen. The cardiac silhouette size is within normal limits. The osseous structures are intact. IMPRESSION: No acute cardiopulmonary process. No interval change
[2023-02-13] MEDS ORDERED: methylPREDNISolone SOD SUCCI 125 MG/2 ML VIAL IM ONE (17:23)
[2023-02-13] MEDS ORDERED: IPRATROPIUM-ALBUTEROL 3 ML NEB INHALATION STA (17:23)
[2023-02-13] MEDS ORDERED: diphenhydrAMINE ELIXIR 25 MG/10 ML CUP PO STA (17:28)
[2023-02-13] MEDS ORDERED: MAG HYDROX/AL HYDROX/SIMETH 30 ML CUP PO STA (17:30)
[2023-02-13] MEDS ORDERED: ACETAMINOPHEN TAB 500 MG TAB PO STA (17:32)
--- NOTE | 2023-02-13 17:35 | ED ---
General Adult HPI - General Chief complaint: Shortness of Breath Stated complaint: CHARLEEN Time Seen by Provider: 02/13/23 16:48 Source: patient Mode of arrival: ambulatory Limitations: no limitations - History of Present Illness Initial comments: 32-year-old female presenting to the ED with a chief complaint of dyspnea. Patient seen here in the ED yesterday with upper respiratory symptoms including sore throat and cough and was diagnosed with a viral pharyngitis. Patient had concerns that she was unable to take her oral medications due to sore throat and was prescribed magic mouthwash solution. Patient reports that her pharmacy does not have all the required components and is not able to fill this out at this time. Additionally, she reports ongoing cough and states that while at rest today started to become short of breath. Patient does note a history of asthma and patient reports that she tried to use her inhaler earlier today without reli ef of this. No chest pain. Patient also notes abdominal pain however this is a chronic issue for her. Patient is well-known to the emergency Department due to this. Patient reports no changes in this. No other complaints. - Related Data Home Medications Medication Instructions Recorded Confirmed Omeprazole 20 mg PO BID 11/16/21 01/27/23 Acetaminophen [Tylenol Extra 500 mg PO Q4H PRN 03/30/22 01/27/23 Strength] Insulin Aspart [NovoLOG Flexpen] See Protocol SQ TID-W/MEALS 03/30/22 01/27/23 Insulin Glargine,Hum.rec.anlog 45 units SQ DAILY 03/30/22 01/27/23 [Lantus Solostar Pen] Ondansetron Odt [Zofran ODT] 4 mg PO Q6H PRN 03/30/22 01/27/23 tiZANidine [Zanaflex] 4 mg PO BID PRN 03/30/22 01/27/23 Albuterol Nebulized [Ventolin 2.5 mg INHALATION RT-Q4H PRN 09/18/22 01/27/23 Nebulized] Insulin Aspart [NovoLOG Flexpen] 10 units SQ TID-W/MEALS 09/18/22 01/27/23 Lipase/Protease/Amylase [Zenpep Dr 2 cap PO TID-W/MEALS 09/18/22 01/27/23 5,000 Unit Capsule] Pioglitazone [Actos] 30 mg PO DAILY 09/18/22 01/27/23 Atorvastatin [Lipitor] 80 mg PO HS 10/27/22 01/27/23 EPINEPHrine (Auto Inject) [Epipen] 0.3 mg IM DIRECTED PRN 10/27/22 01/27/23 Fenofibrate [Lofibra] 160 mg PO DAILY 10/27/22 01/27/23 QUEtiapine FUMARATE [SEROquel] 600 mg PO HS 11/09/22 01/27/23 Fluoride (Sodium) [Sodium Fluoride 1 applic DENTAL HS 12/10/22 01/27/23 5000 Plus] Metoclopramide [Reglan] 5 mg PO ACHS PRN 12/10/22 01/27/23 Pantoprazole [Protonix] 40 mg PO BID 12/10/22 01/27/23 Sucralfate [Carafate] 1 gm PO BID 12/10/22 01/27/23 metFORMIN HCL 1,000 mg PO BID 12/10/22 01/27/23 Dicyclomine [Bentyl] 10 mg PO TID PRN 01/27/23 01/27/23 Empagliflozin [Jardiance] 10 mg PO DAILY 01/27/23 01/27/23 Metoclopramide [Reglan] 10 mg PO TID PRN 01/27/23 01/27/23 Naproxen [EC-Naprosyn] 500 mg PO BID PRN 01/27/23 01/27/23 Nitrofurantoin Monohyd/M-Cryst 100 mg PO Q12HR 01/27/23 01/27/23 [Macrobid] Suz-Xdfr-Bvvzg Acid 1 cap PO DAILY 01/27/23 01/27/23 [-U Capsule (formulary)] Previous Rx's Medication Instructions Recorded Ibuprofen [Motrin] 800 mg PO Q8HR PRN #30 tab 06/07/22 Acet/Diph/Lido/Iadq-Nsz-Pqo-Si 5 ml PO Q4-6H PRN #240 ml 02/12/23 [Tyl/Benadryl/Lido/Maalox] Acet/Diph/Lido/Gvav-Qig-Dro-Si 5 ml PO Q4-6H PRN #240 ml 02/12/23 [Tyl/Benadryl/Lido/Maalox] Albuterol Nebulized [Ventolin 2.5 mg INHALATION Q4H 8 Days #150 02/13/23 Nebulized] ml methylPREDNISolone Dose Pack 4 mg PO DIRECTED #1 packet 02/13/23 [Medrol Dose Pack] Allergies Allergy/AdvReac Type Severity Reaction Status Date / Time bee pollen Allergy Severe Anaphylaxis Verified 02/13/23 16:42 haloperidol lactate Allergy Severe QUIT Verified 02/13/23 16:42 [From Haldol] BREATHING latex Allergy Severe RASH-THROAT Verified 02/13/23 16:42 CLOSES [place] Allergy Anaphylaxis Verified 02/13/23 16:42 coconut Allergy Anaphylaxis Verified 02/13/23 16:42 pineapple Allergy Anaphylaxis Verified 02/13/23 16:42 spider venom Allergy Swelling Verified 02/13/23 16:42 Sulfa (Sulfonamide Allergy Anaphylaxis Verified 02/13/23 16:42 Antibiotics) venom-wasp Allergy Swelling Verified 02/13/23 16:42 venom-wasp protein Allergy Swelling Verified 02/13/23 16:42 promethazine HCl AdvReac Severe Nausea & Verified 02/13/23 16:42 [From Phenergan] Vomiting amoxicillin AdvReac Nausea & Verified 02/13/23 16:42 Vomiting ANTS Allergy Mild Anaphylaxis Uncoded 02/13/23 16:42 Review of Systems ROS Statement: Those systems with pertinent positive or pertinent negative responses have been documented in the HPI. ROS Other: All systems not noted in ROS Statement are negative. Past Medical History Past Medical History: Asthma, Diabetes Mellitus, GERD/Reflux Additional Past Medical History / Comment(s): migraines, degenerative disk disease, endometriosis, lupus, pancreatitis, DM2- insulin, gastroparesis History of Any Multi-Drug Resistant Organisms: None Reported Past Surgical History: Cholecystectomy, Orthopedic Surgery Additional Past Surgical History / Comment(s): laparoscopc surgery for endometriosis, cyst removed from left foot, EGD, Past Anesthesia/Blood Transfusion Reactions: Previous Problems w/ Anesthesia Additional Past Anesthesia/Blood Transfusion Reaction / Comment(s): hard to wake up for 48-72 hours after laparoscopic surgery-was in hosp. for 3 days Past Psychological History: Anxiety, Depression, PTSD Smoking Status: Former smoker, Vaper Past Alcohol Use History: None Reported Past Drug Use History: Marijuana - Past Family History Mother Family Medical History: Cancer Additional Family Medical History / Comment(s): Migraines, pancreatic cancer, . Father Family Medical History: Coronary Artery Disease (CAD), Hypertension Additional Family Medical History / Comment(s): ddd, alcoholism & drug use General Exam Limitations: no limitations ENT exam: Present: mucous membranes moist Neck exam: Present: normal inspection Respiratory exam: Present: wheezes Cardiovascular Exam: Present: regular rate, normal rhythm GI/Abdominal exam: Present: soft Neurological exam: Present: alert, oriented X3 Course Vital Signs 02/13/23 02/13/23 02/13/23 16:40 16:50 16:52 Temperature 97.7 F 97.7 F Pulse Rate 145 H 130 H Respiratory 24 18 Rate Blood Pressure 148/89 131/93 O2 Sat by Pulse 97 99 99 Oximetry 02/13/23 02/13/23 02/13/23 17:00 18:00 18:51 Temperature Pulse Rate 117 H Respiratory Rate Blood Pressure 131/93 147/109 O2 Sat by Pulse 98 99 Oximetry 02/13/23 02/13/23 02/13/23 18:58 19:00 20:00 Temperature Pulse Rate 116 H Respiratory 18 Rate Blood Pressure 116/82 O2 Sat by Pulse 98 92 L Oximetry Medical Decision Making - Medical Decision Making Was pt. sent in by a medical professional or institution (, PA, SECURITY SYSTEM ENGINEER, urgent care, hospital, or snf...) When possible be specific @ -No Did you speak to anyone other than the patient for history (EMS, parent, family, police, friend...)? What history was obtained from this source @ -No Did you review nursing and triage notes (agree or disagree)? Why? @ -I reviewed and agree with nursing and triage notes Were old charts reviewed (outside hosp., previous admission, EMS record, old EKG, old radiological studies, urgent care reports/EKG's, snf records)? Report findings @ -No old charts were reviewed Differential Diagnosis (chest pain, altered mental status, abdominal pain women, abdominal pain men, vaginal bleeding, weakness, fever, dyspnea, syncope, headache, dizziness, GI bleed, back pain, seizure, CVA, palpatations, mental health, musculoskeletal)? @ -Differential Dyspnea: Coronary syndrome, arrhythmia, tamponade, asthma, COPD, pulmonary embolism, pneumonia, pneumothorax, pulmonary effusion, anaphylaxis, diabetic ketoacidosis, flailed chest, pulmonary contusion, diaphragmatic rupture, anemia, neuromuscular, this is not meant to be an all-inclusive list. EKG interpreted by me (3pts min.). @ -None X-rays interpreted by me (1pt min.). @ -None done CT interpreted by me (1pt min.). @ -None done U/S interpreted by me (1pt. min.). @ -None done What testing was considered but not performed or refused? (CT, X-rays, U/S, labs)? Why? @ -None What meds were considered but not given or refused? Why? @ -None Did you discuss the management of the patient with other professionals (professionals i.e. DrSuzie, PA, SECURITY SYSTEM ENGINEER, lab, RT, psych nurse, social work case manager, public relations supervisor, teacher, environmental compliance officer, nurse case manager)? Give summary @ -No Was smoking cessation discussed for >3mins.? @ -No Was critical care preformed (if so, how long)? @ -No Were there social determinants of health that impacted care today? How? (Homelessness, low income, unemployed, alcoholism, drug addiction, transportation, low edu. Level, literacy, decrease access to med. care, senior care, rehab)? @ -No Was there de-escalation of care discussed even if they declined (Discuss DNR or withdrawal of care, Hospice)? DNR status @ -No What co-morbidities impacted this encounter? (DM, HTN, Smoking, COPD, CAD, Cancer, CVA, ARF, Chemo, Hep., AIDS, mental health diagnosis, sleep apnea, morbid obesity)? @ -None Was patient admitted / discharged? Hospital course, mention meds given and route, prescriptions, significant lab abnormalities, going to OR and other pertinent info. @ -Discharge 32-year-old female well-known to the department presented to the ED with a chief complaint of dyspnea. Patient seen here yesterday with upper respiratory symptoms. Patient notes continued symptoms and also notes worsening of her asthma. States that she tried using her inhaler with no relief of her shortness of breath. Notes that she has run out of nebulizer solution. Patient also n otes abdominal pain. This is chronic in nature and unchanged from usual. Laboratory studies at this time largely unremarkable. Chest x-ray showed no evidence of pneumonia or other acute process. Patient had breathing treatment with significant improvement of symptoms. Patient discharged home in stable condition with prescription for nebulizer solution Medrol Dosepak. Discussed return precautions with patient who verbalizes agreement. Undiagnosed new problem with uncertain prognosis? @ -No Drug Therapy requiring intensive monitoring for toxicity (Heparin, Nitro, Insulin, Cardizem)? @ -No Were any procedures done? @ -No Diagnosis/symptom? @ -Asthma exacerbation Acute, or Chronic, or Acute on Chronic? @ -Acute Uncomplicated (without systemic symptoms) or Complicated (systemic symptoms)? @ -Uncomplicated Side effects of treatment? @ -No Exacerbation, Progression, or Severe Exacerbation? @ -No Poses a threat to life or bodily function? How? (Chest pain, [place], [place], pneumonia, PE, COPD, DKA, ARF, appy, cholecystitis, CVA, Diverticulitis, Homicidal, Suicidal, threat to staff... and all critical care pts) @ -No - Lab Data Result diagrams: 02/13/23 18:02 02/13/23 18:02 Lab Results 02/13/23 02/13/23 02/13/23 Range/Units 17:00 18:02 18:02 WBC 4.9 (3.8-10.6) k/uL RBC 3.98 (3.80-5.40) m/uL Hgb 11.9 (11.4-16.0) gm/dL Hct 36.3 (34.0-46.0) % MCV 91.1 (80.0-100.0) fL MCH 29.9 (25.0-35.0) pg MCHC 32.8 (31.0-37.0) g/dL RDW 16.2 H (11.5-15.5) % Plt Count 197 (150-450) k/uL MPV 8.1 Neutrophils % 54 % Lymphocytes % 37 % Monocytes % 7 % Eosinophils % 1 % Basophils % 0 % Neutrophils # 2.6 (1.3-7.7) k/uL Lymphocytes # 1.8 (1.0-4.8) k/uL Monocytes # 0.3 (0-1.0) k/uL Eosinophils # 0.0 (0-0.7) k/uL Basophils # 0.0 (0-0.2) k/uL Anisocytosis Slight D-Dimer 0.27 (<0.60) mg/L FEU Sodium (137-145) mmol/L Potassium (3.5-5.1) mmol/L Chloride (98-107) mmol/L Carbon Dioxide (22-30) mmol/L Anion Gap mmol/L BUN (7-17) mg/dL Creatinine (0.52-1.04) mg/dL Est GFR (CKD-EPI)AfAm (>60 ml/min/1.73 sqM) Est GFR (CKD-EPI)NonAf (>60 ml/min/1.73 sqM) Glucose (74-99) mg/dL Calcium (8.4-10.2) mg/dL Total Bilirubin (0.2-1.3) mg/dL AST (14-36) U/L ALT (4-34) U/L Alkaline Phosphatase (38-126) U/L Troponin I (0.000-0.034) ng/mL Total Protein (6.3-8.2) g/dL Albumin (3.5-5.0) g/dL Amylase (30-110) U/L Lipase (23-300) U/L Influenza Type A (PCR) Not Detected (Not Detectd) Influenza Type B (PCR) Not Detected (Not Detectd) RSV (PCR) Not Detected (Not Detectd) SARS-CoV-2 (PCR) Not Detected (Not Detectd) 02/13/23 02/13/23 Range/Units 18:02 18:02 WBC (3.8-10.6) k/uL RBC (3.80-5.40) m/uL Hgb (11.4-16.0) gm/dL Hct (34.0-46.0) % MCV (80.0-100.0) fL MCH (25.0-35.0) pg MCHC (31.0-37.0) g/dL RDW (11.5-15.5) % Plt Count (150-450) k/uL MPV Neutrophils % % Lymphocytes % % Monocytes % % Eosinophils % % Basophils % % Neutrophils # (1.3-7.7) k/uL Lymphocytes # (1.0-4.8) k/uL Monocytes # (0-1.0) k/uL Eosinophils # (0-0.7) k/uL Basophils # (0-0.2) k/uL Anisocytosis D-Dimer (<0.60) mg/L FEU Sodium 139 (137-145) mmol/L Potassium 4.5 (3.5-5.1) mmol/L Chloride 106 (98-107) mmol/L Carbon Dioxide 21 L (22-30) mmol/L Anion Gap 12 mmol/L BUN 12 (7-17) mg/dL Creatinine 0.56 (0.52-1.04) mg/dL Est GFR (CKD-EPI)AfAm >90 (>60 ml/min/1.73 sqM) Est GFR (CKD-EPI)NonAf >90 (>60 ml/min/1.73 sqM) Glucose 166 H (74-99) mg/dL Calcium 10.7 H (8.4-10.2) mg/dL Total Bilirubin 0.4 (0.2-1.3) mg/dL AST 24 (14-36) U/L ALT 28 (4-34) U/L Alkaline Phosphatase 91 (38-126) U/L Troponin I <0.012 (0.000-0.034) ng/mL Total Protein 7.0 (6.3-8.2) g/dL Albumin 3.8 (3.5-5.0) g/dL Amylase 41 (30-110) U/L Lipase 119 (23-300) U/L Influenza Type A (PCR) (Not Detectd) Influenza Type B (PCR) (Not Detectd) RSV (PCR) (Not Detectd) SARS-CoV-2 (PCR) (Not Detectd) Disposition Clinical Impression: Asthma exacerbation Disposition: HOME SELF-CARE Condition: Good Instructions (If sedation given, give patient instructions): Asthma (ED) Additional Instructions: Please return to the Emergency Department if symptoms worsen or any other concerns. Prescriptions: methylPREDNISolone Dose Pack [Medrol Dose Pack] 4 mg PO DIRECTED #1 packet Albuterol Nebulized [Ventolin Nebulized] 2.5 mg INHALATION Q4H 8 Days #150 ml Is patient prescribed a controlled substance at d/c from ED?: No Referrals: Isi Carolina MD [Primary Care Provider] - 1-2 days Time of Disposition: 23:10
[2023-02-13] MEDS ORDERED: LIDOCAINE VISCOUS 2% 15 ML CUP MUCOUS MEM ONE (17:45)
[2023-02-13] MEDS ORDERED: SODIUM CHLORIDE 0.9% 1,000 ML IV STA (17:54)
[2023-02-13 18:43] LABS: Anisocytosis Slight; Basophils % (A) 0 %; Eosinophils % (A) 1 %; HCT 36.3 % (34.0-46.0); HGB 11.9 gm/dL (11.4-16.0); Lymphocytes # (A) 1.8 k/uL (1.0-4.8); Lymphocytes % (A) 37 %; MCH 29.9 pg (25.0-35.0); MCHC 32.8 g/dL (31.0-37.0); MCV 91.1 fL (80.0-100.0); Mean Platelet Volume 8.1; Monocytes # (A) 0.3 k/uL (0-1.0); Monocytes % (A) 7 %; Neutrophils # (A) 2.6 k/uL (1.3-7.7); Neutrophils % (A) 54 %; Platelet Count 197 k/uL (150-450); RBC 3.98 m/uL (3.80-5.40); RDW 16.2 % (11.5-15.5); WBC 4.9 k/uL (3.8-10.6)
[2023-02-13 19:05] VITALS: PULSE 116
[2023-02-13 19:07] LABS: ALT 28 U/L (4-34); AST 24 U/L (14-36); African American GFR (CKD) >90 (>60 ml/min/1.73 sqM); Albumin 3.8 g/dL (3.5-5.0); Alkaline Phosphatase 91 U/L (38-126); Amylase 41 U/L (30-110); Anion Gap 12 mmol/L; Blood Urea Nitrogen 12 mg/dL (7-17); Calcium 10.7 mg/dL (8.4-10.2); Carbon Dioxide 21 mmol/L (22-30); Chloride 106 mmol/L (98-107); Glucose 166 mg/dL (74-99); Lipase 119 U/L (23-300); Non-African American GFR(CKD) >90 (>60 ml/min/1.73 sqM); Potassium 4.5 mmol/L (3.5-5.1); Sodium 139 mmol/L (137-145); Total Bilirubin 0.4 mg/dL (0.2-1.3)
[2023-02-13] MEDS ORDERED: diphenhydrAMINE 50 MG/ML 1 ML VIAL IVP STA (19:42)
[2023-02-13] MEDS ORDERED: KETOROLAC 15 MG/ML 1 ML VIAL IVP STA (19:42)
[2023-02-13 20:45] VITALS: BP 116/82
[2023-02-14 00:23] LABS: Appearance,Urine Clear (Clear); Bilirubin,Urine Negative (Negative); Blood,Urine Negative (Negative); Color,Urine Light Yellow; Glucose,Urine (UA) 4+ (Negative); Ketones,Urine Negative (Negative); Leukocyte Esterase,Urine Negative (Negative); Nitrite,Urine Negative (Negative); PH, Urine 6.5 (5.0-8.0); Protein,Urine Negative (Negative); Specific Gravity,Urine 1.041 (1.001-1.035); Urobilinogen,Urine <2.0 mg/dL (<2.0)
== END 2023-02-13 23:28 | disposition home or self-care (01) ==
LOC: EC 16:39
DX: J45.901 Unspecified asthma with (acute) exacerbation (principal); E11.9 Type 2 diabetes mellitus without complications; K21.9 Gastro-esophageal reflux disease without esophagitis; F17.290 Nicotine dependence, other tobacco product, uncomplicated; F12.90 Cannabis use, unspecified, uncomplicated; Z91.040 Latex allergy status; Z91.038 Other insect allergy status; Z88.2 Allergy status to sulfonamides; Z91.030 Bee allergy status; Z88.0 Allergy status to penicillin; Z88.8 Allergy status to other drugs, medicaments and biological substances; Z79.4 Long term (current) use of insulin; Z79.84 Long term (current) use of oral hypoglycemic drugs; Z79.899 Other long term (current) drug therapy; Z20.822 Contact with and (suspected) exposure to COVID-19
CPT/HCPCS: 36415; 94640; 85379; 80053; 82150; 83690; 84484; 85025; 87636; 71046; 99285; 96374; 96375; 96361; 96372; J1200; J2930; J1885; 81003